=== PATIENT | male | born 1940 | race Caucasian/White ===

== ENCOUNTER 2022-04-15 10:33 | Outpatient (CLI) | payer MEDICARE, BC, SELFPAY | END 2022-04-15 10:34 | disposition home or self-care (01) | PROVIDERS: PCP Family Medicine; Visit Provider Nurse Practitioner Family | DX: L89.324 Pressure ulcer of left buttock, stage 4 (principal); R26.9 Unspecified abnormalities of gait and mobility; R77.0 Abnormality of albumin; D50.9 Iron deficiency anemia, unspecified | CPT/HCPCS: 11043; 99214 ==

== ENCOUNTER 2022-04-24 09:19 | Outpatient (CLI) | payer MEDICARE, BC, SELFPAY | END 2022-04-24 09:20 | disposition home or self-care (01) | PROVIDERS: PCP Family Medicine; Visit Provider Family Medicine | DX: L89.324 Pressure ulcer of left buttock, stage 4 (principal); D50.9 Iron deficiency anemia, unspecified; K68.12 Psoas muscle abscess; R26.9 Unspecified abnormalities of gait and mobility; R77.0 Abnormality of albumin | CPT/HCPCS: 11042; 72192; 97605 ==

== ENCOUNTER 2022-05-01 13:36 | Outpatient (CLI) | payer MEDICARE, BC, SELFPAY | END 2022-05-01 13:37 | disposition home or self-care (01) | LOC: WOUND 13:36 | PROVIDERS: PCP Family Medicine; Visit Provider Nurse Practitioner Family | DX: L89.324 Pressure ulcer of left buttock, stage 4 (principal); R26.9 Unspecified abnormalities of gait and mobility | CPT/HCPCS: 11042; 97605 ==

== ENCOUNTER 2022-05-08 13:14 | Outpatient (CLI) | payer MEDICARE, BC, SELFPAY | END 2022-05-08 13:15 | disposition home or self-care (01) | LOC: WOUND 13:15 | PROVIDERS: PCP Family Medicine; Visit Provider Nurse Practitioner Family | DX: L89.324 Pressure ulcer of left buttock, stage 4 (principal); D50.9 Iron deficiency anemia, unspecified | CPT/HCPCS: 15271; 97605; Q4151 ==

== ENCOUNTER 2022-05-15 13:05 | Outpatient (CLI) | payer MEDICARE, BC, SELFPAY | END 2022-05-15 13:06 | disposition home or self-care (01) | LOC: WOUND 13:05 | PROVIDERS: PCP Family Medicine; Visit Provider Nurse Practitioner Family | DX: L89.324 Pressure ulcer of left buttock, stage 4 (principal); R26.9 Unspecified abnormalities of gait and mobility | CPT/HCPCS: 11042; 97605 ==

== ENCOUNTER 2022-05-22 13:32 | Outpatient (CLI) | payer MEDICARE, BC, SELFPAY ==
--- OUTSIDE RECORDS SUMMARY | 2022-05-28 05:01 | XMS_ITS | Encounter Summary ---
:1940 Author Organization [facility] Address [address] [place] [address] Care Team Providers Name Role Phone Unavailable Primary Care Provider Unavailable Encounter Details Date Type Department Care Team Description 05/21/2022 Orders Only [facility] O f Denilson Quinones MD [phone] [place] [address] [place], [place] [phone] (Wo rk) Social History Tobacco Use Types Packs/Day Years Used Date Smoking Tobacco: Never Assessed Sex Assigned at Date Recorded Not on file documented as of this encounter Plan of Treatment Not on filedocumented as of this encounter Procedures Procedure Name Priority Date/Time Associated Diagnosis Comme nts GFR (HC) Routine 05/21/2022 Results for thi s procedure are in the resu lts section. HD KINETICS Routine 05/21/2022 Results for thi s procedure are in the resu lts section. POST CHEMISTRY Routine 05/21/2022 Results for t his procedure are in the resu lts section. IMMUNO CHEMISTRY Routine 05/21/2022 Results for this procedure are in the resu lts section. HEMATOLOGY Routine 05/21/2022 Results for thi s procedure are in the resu lts section. CHEMISTRY Routine 05/21/2022 Results for thi s procedure are in the resu lts section. documented in this encounter Results HD KINETICS (05/21/2022) P athologist Signature % Urea 76 65 - 80 % APS SPECTRA Reduction [facility] Specimen (Source) Anatomical Collection Method Collection Time Re ceived Time Location / / Volume Laterality 05/21/2022 05/22/2022 5:02 AM CDT Narrative APS SPECTRA [facility] - 05/27/2022 Unless otherwise specified, test(s) performed at: [facility], [address] [place] [address] TOOL CLERK: Raheem Malik M.D., Ph.D For any questions, please call customer service at FREQUENCY:MONTHLY Resulting Agency Comment Specimen source: Plasma Denilson Holly MD LAB BLOOD ORDERABLES Performing Organization Address City/State/ZIP Code Phon e Number APS SPECTRA [facility] (ABNORMAL) Spectrae Chemistry (05/21/2022) P athologist Signature BUN 54 (H) 6 - 19 APS SPECTRA mg/dL [facility] Creatinine 2.57 (H) 0.60 - 1.30 APS SPECTRA mg/dL [facility] Comment: Custom Exception BUN/Creatinine Ratio 21.0 (H) 10.0 - 20.0 APS SPE CTRA [facility] Sodium 142 136 - 145 mEq/L APS SPECT[facility] [place] [facility] Potassium 4.4 3.5 - 5.1 mEq/L [facility] [place] [facility] Chloride 105 96 - 108 mEq/L APS [facility] [place] Bicarbonate (CO2) 29 20 - 31 mEq/L APS SPEC TRA [facility] Comment: Please note change in reference range. Calcium 9.1 8.7 - 10.4 mg/dL APS SPECTRA K [facility] Comment: Please note change in reference range. Corrected Calcium 9.3 8.7 - 10.4 mg/dL APS S PECTRA [facility] Comment: Corrected Calcium is not equivalent to m easured Ionized Calcium. Phosphorus 3.7 2.6 - 4.5 mg/dL APS SPECTRA K [facility] Calcium Phosphorus Product 34 0 - 54 APS S[facility]RA [facility] Calcium Phosporus Product, Cor 34 0 - 54 APS SPECTRA [facility] Total Protein 6.6 6.0 - 8.5 g/dL APS SPECTRA [facility] Albumin 3.7 3.5 - 5.2 g/dL [facility] [place] Globulin, Total 2.9 2.0 - 4.0 g/dL APS SPECT RA [facility] A/G Ratio 1.3 1.0 - 2.0 APS SPECTRA [facility] Magnesium 1.6 1.6 - 2.6 mg/dL APS S[facility] [place] [facility] Iron 82 45 - 160 mcg/dL [facility] [place] [facility] UIBC 155 155 - 355 mcg/dL APS SPECTRA [facility] TIBC 237 185 - 515 mcg/dL APS SPECTRA [facility] Iron Saturation (TSat) 35 20 - 55 % APS SPE CTRA [facility] Specimen (Source) Anatomical Collection Method Collection Time Re ceived Time Location / / Volume Laterality 05/21/2022 05/23/2022 7:07 AM CDT Resulting Agency Comment Specimen source: Serum Denilson Holly MD LAB BLOOD ORDERABLES Performing Organization Address City/State/ZIP Code Phon e Number APS SPECTRA [facility] GFR (05/21/2022) P athologist Signature eGFR CKD-EPI CR 24 mL/min APS SPECTRA 2020 [facility] Comment: [facility] has implemented the recommended eGFR calculation that does not have a coefficient for rac e. This conforms to the NKF-ASN Task Force Recommendations (2020 Chronic Kidney Disease Epidemiology Collaboration (CKD-EPI) creatinine equat ion refit without the race variable). A normal eGFR is >90 mL/min. The new calculation is not applicable to pediatric patients. In gen eral, eGFR calculations may not be accurate in DEJA or other non-steady s card clinical presentations including, but not limited to, ongoing d ialysis. Extremes in body size, severe malnutrition or obesity, skeletal muscle disease, paraplegia or quadriplegia, vegetarian diet and rapidl y changing kidney function may alter the result. Specimen (Source) Anatomical Collection Method Collection Time Re ceived Time Location / / Volume Laterality 05/21/2022 05/23/2022 7:07 AM CDT Narrative APS SPECTRA [facility] - 05/27/2022 Unless otherwise specified, test(s) performed at: [facility], [address] [place] [address], [place] [address] TOOL CLERK: Raheem Malik M.D., Ph.D For any questions, please call customer service at FREQUENCY:MONTHLY Resulting Agency Comment Specimen source: Serum Denilson Holly MD LAB [id number] NSOLICITED RESULTS Performing Organization Address City/[facility]/ZIP Code Phon e Number APS SPECTRA [facility] IMMUNO CHEMISTRY (05/21/2022) P athologist Signature Hep B Surface Negative Negative APS SPECTRA Ag [facility] Hepatitis B 65 mIU/mL APS SPECTRA Surface Ab [facility] Comment: The anti-HBs (Hepatitis B surface antibo dy) is greater than or equal to 10 mIU/mL and implies immunity. The angela ent has either had an antibody response to HBV vaccination, received a transfusion, or has recovered from HBV infection. For post-vaccination antibody testing guidelines for the general public, refer to MMWR [facility] 2004/Vol.54 (No. 16); 11-10, and for healthcare workers, refer to MMWR October 07, 2013/Vol.62 (No. 10); -18. Reference Range: <10 mIU/mL ? Non-Immune >=10 mIU/mL ?Immune The magnitude of the measured result abo ve 10 mIU/mL is not indicative of the total amount of antibody present. Specimen (Source) Anatomical Collection Method Collection Time Re ceived Time Location / / Volume Laterality 05/21/2022 05/22/2022 5:12 AM CDT Narrative APS SPECTRA [facility] - 05/22/2022 Unless otherwise specified, test(s) performed at: [facility], [facility] [place] [address] TOOL CLERK: Raheem Malik M.D., Ph.D For any questions, please call customer service at FREQUENCY:MONTHLY Resulting Agency Comment Specimen source: Plasma Denilson Holly MD LAB BLOOD ORDERABLES Performing Organization Address City/State/ZIP Code Phon e Number APS SPECTRA [facility] POST CHEMISTRY (05/21/2022) P athologist Signature BUN Post 13 6 - 19 APS SPECTRA Dialysis mg/dL [facility] Specimen (Source) Anatomical Collection Method Collection Time Re ceived Time Location / / Volume Laterality 05/21/2022 05/22/2022 5:02 AM CDT Narrative APS SPECTRA [facility] - 05/22/2022 Unless otherwise specified, test(s) performed at: [facility], [address] [place] [address] TOOL CLERK: Raehem Malik M.D., Ph.D For any questions, please call customer service at FREQUENCY:MONTHLY Resulting Agency Comment Specimen source: Plasma Denilson Holly MD LAB BLOOD ORDERABLES Performing Organization Address City/State/ZIP Code Phon e Number APS SPECTRA [facility] (ABNORMAL) HEMATOLOGY (05/21/2022) [facility] Method Time Signature WBC 7.80 4.80 - APS SPECTRA 10.80 [facility] 1000/mcL RBC 3.53 (L) 4.70 - APS SPECTRA 6.10 [facility] mill/mcL Hemoglobin 10.4 (L) 14.0 - APS SPECTRA 18.0 g/dL [facility] Hemoglobin x 3 31.2 (L) 42.0 - APS SPECTRA 54.0 % [facility] Hematocrit 33.1 (L) 42.0 - APS SPECTRA 52.0 % [facility] MCV 94 80 - 100 APS SPECTRA fl [facility] MCH 29.5 27.0 - APS SPECTRA 31.0 pg [facility] MCHC 31.5 30.0 - APS SPECTRA 36.0 g/dL [facility] RDW 15.7 (H) 11.5 - APS SPECTRA 14.5 % [facility] Neutrophils 71.0 40.0 - APS SPECTRA 75.0 % [facility] Lymphocytes 14.0 (L) 19.0 - APS SPECTRA Relative 48.0 % [facility] Monocytes 9.7 3.0 - 10.0 APS SPECTRA % [facility] Eosinophils 2.6 0.0 - 7.0 APS SPECTRA Relative % [facility] Basophils 0.4 0.0 - 1.5 APS SPECTRA Relative % [facility] YARIEL 2.3 0.0 - 4.0 APS SPECTRA % [facility] Platelets 244 130 - 400 APS SPECTRA 1000/mcL [facility] Specimen (Source) Anatomical Collection Method Collection Time Re ceived Time Location / / Volume Laterality 05/21/2022 05/22/2022 4:08 AM CDT Narrative APS SPECTRA [facility] - 05/22/2022 Unless otherwise specified, test(s) performed at: [facility], [address] [place] [address] [place] [address] TOOL CLERK: Raheem Malik M.D., Ph.D For any questions, please call customer service at FREQUENCY:MONTHLY Resulting Agency Comment Specimen source: Blood Denilson Holly MD LAB BLOOD ORDERABLES Performing Organization Address City/State/ZIP Code Phon e Number APS SPECTRA [facility] documented in this encounter Visit Diagnoses Not on filedocumented in this encounter
--- OUTSIDE RECORDS SUMMARY | 2022-05-28 05:01 | XMS_ITS | Encounter Summary ---
:1940 Author Organization [facility] Address [address] [place] [address] Care Team Providers Name Role Phone Unavailable Primary Care Provider Unavailable Encounter Details Date Type Department Care Team Description 05/19/2022 Orders Only [facility] O f Denilson Quinones MD [phone] [place] [address] [place], [place] [phone] (Wo rk) Social History Tobacco Use Types Packs/Day Years Used Date Smoking Tobacco: Never Assessed Sex Assigned at Date Recorded Not on file documented as of this encounter Plan of Treatment Not on filedocumented as of this encounter Procedures Procedure Name Priority Date/Time Associated Diagnosis Comme nts GFR (HC) Routine 05/19/2022 Results for thi s procedure are i n the results section . PATIENT INFORMATION Routine 05/19/2022 Results for this procedure are i n the results section . PATIENT INFORMATION Routine 05/19/2022 Results for this procedure are i n the results section . CHEMISTRY Routine 05/19/2022 Results for thi s procedure are i n the results section . documented in this encounter Results (ABNORMAL) Spectrae Chemistry (05/19/2022) P athologist Signature BUN 54 (H) 6 - 19 APS SPECTRA mg/dL [facility] Creatinine 2.57 (H) 0.60 - 1.30 APS SPECTRA mg/dL [facility] Comment: Custom Exception BUN/Creatinine Ratio 21.0 (H) 10.0 - 20.0 APS SPE CTRA [facility] Sodium 138 136 - 145 mEq/L [facility] [place] [facility] Potassium 4.2 3.5 - 5.1 mEq/L [facility] [place] [facility] Chloride 102 96 - 108 mEq/L [facility] [place] Bicarbonate (CO2) 26 20 - 31 mEq/L APS SPEC TRA [facility] Comment: Please note change in reference range. Calcium 8.6 (L) 8.7 - 10.4 mg/dL APS SPECTRA [facility] Comment: Please note change in reference range. Glucose 85 70 - 100 mg/dL APS SPECTRA [facility] [place] Specimen (Source) Anatomical Collection Method Collection Time Re ceived Time Location / / Volume Laterality 05/19/2022 05/20/2022 3:17 AM CDT Resulting Agency Comment Specimen source: Serum Denilson Holly MD LAB BLOOD ORDERABLES Performing Organization Address City/State/ZIP Code Phon e Number APS SPECTRA [facility] PATIENT INFORMATION (05/19/2022) athologist Signature Patient BSA 1.73 sq. M. APS SPECTRA [facility] Comment: Normalized values are calculated using t he patient's actual BSA and normalized to the average BSA of 1.73m2. Specimen (Source) Anatomical Collection Method Collection Time Re ceived Time Location / / Volume Laterality 05/19/2022 05/20/2022 3:17 AM CDT Resulting Agency Comment Specimen source: PD Fluid Denilson Holly MD LAB BLOOD ORDERABLES Performing Organization Address City/State/ZIP Code Phon e Number APS SPECTRA [facility] GFR (05/19/2022) athologist Signature eGFR CKD-EPI CR 24 mL/min APS SPECTRA 2020 [facility] Comment: [facility] has implemented the recommended eGFR calculation that [...] ceived Time Location / / Volume Laterality 05/19/2022 05/20/2022 3:17 AM CDT Narrative APS SPECTRA [facility] - 05/20/2022 Unless otherwise specified, test(s) performed at: [facility], [address] [facility], [place] [address] DOUGHNUT FRYER: Raheem Malik M.D., Ph.D For any questions, please call customer service at FREQUENCY:OTHER Resulting Agency Comment Specimen source: Serum Denilson Holly MD LAB [id number] NSOLICITED RESULTS Performing Organization Address City/[facility] Phon e Number APS SPECTRA [facility] PATIENT INFORMATION (05/19/2022) P athologist Signature Patient Weight 69.3 APS SPECTRA [facility] Patient Height 161.0 APS SPECTRA [facility] Amputee Status NO [facility]PS S[facility]RA [facility] Amputee Parts NONE [facility]RA [facility] Urine Volume 500 APS SPECTRA [facility] Collection 24.0 APS SPECTRA Interval, Ur [facility] Specimen (Source) Anatomical Location Collection Method / Collectio n Time Received Time / Laterality Volume 05/19/2022 05/19/2022 Narrative APS SPECTRA [facility] - 05/20/2022 Unless otherwise specified, test(s) performed at: [facility], [address] [facility] [place] [address] DOUGHNUT FRYER: Raheem Malik M.D., Ph.D For any questions, please call customer service at FREQUENCY:OTHER Resulting Agency Comment Specimen source: PD Fluid Denilson Holly MD LAB BLOOD ORDERABLES Performing Organization Address City/[facility] Phon e Number APS SPECTRA [facility] documented in this encounter Visit Diagnoses Not on filedocumented in this encounter
--- OUTSIDE RECORDS SUMMARY | 2022-05-28 05:01 | XMS_ITS | Encounter Summary ---
:1940 Author Organization [facility] Address [address] [place] [address] Care Team Providers Name Role Phone Unavailable Primary Care Provider Unavailable Encounter Details Date Type Department Care Team Description 05/14/2022 Orders Only [facility] O f Denilson Quinones MD [phone] [place] [address] [place], [place] [phone] (Wo rk) Social History Tobacco Use Types Packs/Day Years Used Date Smoking Tobacco: Never Assessed Sex Assigned at Date Recorded Not on file documented as of this encounter Plan of Treatment Not on filedocumented as of this encounter Procedures Procedure Name Priority Date/Time Associated Diagnosis Comme nts GFR (HC) Routine 05/14/2022 Results for thi s procedure are in the resu lts section. HEMATOLOGY Routine 05/14/2022 Results for thi s procedure are in the resu lts section. CHEMISTRY Routine 05/14/2022 Results for thi s procedure are in the resu lts section. documented in this encounter Results (ABNORMAL) HEMATOLOGY (05/14/2022) Analysis Performed At Patho logist Time Signature Hemoglobin 10.2 (L) 14.0 - APS SPECTRA 18.0 g/dL [facility] Hemoglobin x 3 30.6 (L) 42.0 - APS SPECTRA 54.0 % [facility] Specimen (Source) Anatomical Collection Method Collection Time Re ceived Time Location / / Volume Laterality 05/14/2022 05/15/2022 6:56 AM CDT Narrative APS SPECTRA [facility] - 05/15/2022 Unless otherwise specified, test(s) performed at: [email or web address], [address] [place] [address] [address] [place] [address] HEALTH AND SAFETY INSPECTOR: Raheem Malik M.D., Ph.D For any questions, please call customer service at FREQUENCY:OTHER Resulting Agency Comment Specimen source: Blood Denilson Holly MD LAB BLOOD ORDERABLES Performing Organization Address City/State/ZIP Code Phon e Number APS SPECTRA [facility] (ABNORMAL) Spectrae Chemistry (05/14/2022) P athologist Signature BUN 53 (H) 6 - 19 APS SPECTRA mg/dL [facility] Creatinine 2.59 (H) 0.60 - 1.30 APS SPECTRA mg/dL [facility] Comment: Custom Exception BUN/Creatinine Ratio 20.5 (H) 10.0 - 20.0 APS SPE CTRA [facility] Sodium 138 136 - 145 mEq/L APS SPECTRA [place] [facility] Potassium 4.0 3.5 - 5.1 mEq/L [facility]PS [facility]RA [place] [facility] Chloride 101 96 - 108 mEq/L APS S[facility]RA [facility] [place] Bicarbonate (CO2) 28 20 - 31 mEq/L APS SPEC TRA [facility] Comment: Please note change in reference range. Specimen (Source) Anatomical Collection Method Collection Time Re ceived Time Location / / Volume Laterality 05/14/2022 05/15/2022 6:52 AM CDT Resulting Agency Comment Specimen source: Serum Denilson Holly MD LAB BLOOD ORDERABLES Performing Organization Address City/[facility]/ZIP Code Phon e Number APS SPECTRA [facility] GFR (05/14/2022) P athologist Signature eGFR CKD-EPI CR 24 mL/min APS SPECTRA 2020 [facility] Comment: [email or web address] has implemented the recommended eGFR calculation that [...] ceived Time Location / / Volume Laterality 05/14/2022 05/15/2022 6:52 AM CDT Narrative APS SPECTRA [facility] - 05/15/2022 Unless otherwise specified, test(s) performed at: [email or web address], [address] [place] [address] [place] [address] HEALTH AND SAFETY INSPECTOR: Raheem Malik M.D., Ph.D For any questions, please call customer service at FREQUENCY:OTHER Resulting Agency Comment Specimen source: Serum Denilson Holly MD LAB [id number] NSOLICITED RESULTS Performing Organization Address City/State/ZIP Code Phon e Number APS SPECTRA [facility] documented in this encounter Visit Diagnoses Not on filedocumented in this encounter
--- OUTSIDE RECORDS SUMMARY | 2022-05-28 05:01 | XMS_ITS ---
:1940 Author Organization [facility], [place] DOCUMENT DISCLAIMER The information in the [facility] Continuity of Care Document represents a summary of certain health and medical information. It may not contain the complete medical history for the patient and should be independently verified. The represented time in the document is Eastern Time. 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 Active April 14, 2022 Acute kidney failure, unspecified N17.9 Active April 14, 2022 ALLERGIES AND ADVERSE REACTIONS Substance Reaction Severity Status PENICILLINS Skin Rash Moderate Active procaine Unknown Active SOCIAL HISTORY Tobacco Use Status Tobacco Type Unknown if ever consumed tobacco - Caregiver Characteristics Need Level ADL Type 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 MEDICATIONS Prescribed Medications for Dialysis Treatments Medication Instructions Dosage Route Start Date End Date Statu s Heparin Every Treatment 1600 Arterial Red April 16April 15, Active Sodium units Port 2021 2022 (Porcine) 1,000 Units/mL Catheter Lock Arterial Heparin Every Treatment 1600 Venous Blue April 16April 15, Active Sodium units Port 2021 2022 (Porcine) 1,000 Units/mL Catheter Lock Venous Iron Sucrose 1X Week 50 mg Intravenous - May Active (Venofer) push 2021 Iron Sucrose Every Treatment 100 mg Intravenous - April 30May us Active (Venofer) push 2021 Home Medications Medication Instructions Dosage Route Start Date End Date Statu s apixaban 5 mg Take by mouth 1 tablet ORAL April 28, Active twice a day 2021 ascorbic acid ORAL April 28, Acti ve (vitamin C) 500 mg 2021 Cipro 500 mg ORAL April 28, Activ e 2021 hydrocodone-aceta Take by mouth 1 tablet ORAL April 28, Active minophen 5-325 mg twice a day as 2021 needed for pain lansoprazole 30 Take by mouth 1 tablet ORAL April 28, Active mg once a day 2021 melatonin 3 mg ORAL April 28, Act shin 2021 metoprolol Take by mouth 1 tablet ORAL April 28, Ac tive tartrate 50 mg twice a day 2021 midodrine 10 mg Take by mouth 1 tablet ORAL April 28, Active three times a day 2021 as needed ramelteon 8 mg ORAL April 28, Act shin 2021 senna 8.6 mg ORAL April 28, Activ e 2021 VITAL SIGNS Post-Treatment Vital Signs Vital Sign Value Date / Time Blood Pressure-sitting 131/81 mmHg May 26, 2022 1 1:51 AM Heart Rate 76 beats per minute May 26, 2022 11:5 1 AM Respiratory Rate 16 breaths per minute May 26, 2022 11 :51 AM Temperature 97.8 deg. F May 26, 2022 11:5 1 AM Weight Vital Sign Value Date / Time Estimated Dry Weight 71.5 kg April 21, 2022 11:59 PM Pre-Dialysis 72.60 kg May 26, 2022 11:5 1 AM Post-Dialysis 71.60 kg May 26, 2022 11:5 1 AM Other Other Value Date / Time Height 161 cm May 26, 2022 12:0 0 AM HEALTH CONCERNS Tuberculosis Testing TST Date Administered TST Date Read TST Result 04/23/2022 04/25/2022 Negative (<5) mm LAB RESULTS Hematology Result Type Result Value Relevant Reference Interpretation Date Range HGB 10.3 g/dL Males: 14.0 - 18.0 Low May 02, 2022 g/dL Females: 12.0 - 16.0 g/dL Hemoglobin x 3 30.9 % Male: 14.0 - 18.0 Low May 02, 2022 g/dL; Female: 12.0-16.0 g/dL Hemoglobin x 3 31.5 % Male: 14.0 - 18.0 Low May 07, 2022 g/dL; Female: 12.0-16.0 g/dL HGB 10.5 g/dL Males: 14.0 - 18.0 Low May 07, 2022 g/dL Females: 12.0 - 16.0 g/dL HGB 10.2 g/dL Males: 14.0 - 18.0 Low May 14, 2022 g/dL Females: 12.0 - 16.0 g/dL Hemoglobin x 3 30.6 % Male: 14.0 - 18.0 Low May 14, 2022 g/dL; Female: 12.0-16.0 g/dL Platelets 244 1000/mcL 336-684 9786/mcL - May 21, 2022 YARIEL 2.3 % 0.0-4.0% - May 21, 2022 Basophils 0.4 % 0.0-1.5% - May 21, 2022 Eosinophil 2.6 % 0.0-7.0% - May 21, 2022 TIBC 237 mcg/dL 185-515 mcg/dL - May 21 UIBC (Calc) 155 mcg/dL 155-355 mcg/dL - May 21 Iron 82 mcg/dL Females: 30-160 - May 21 022 mcg/dL Males: 45-160 mcg/dL RBC 3.53 mill/mcL Males: 4.70 - 6.10 Low May mill/mcL Females: 4.20 - 5.40 mill/mcL WBC (No Diff) 7.80 1000/mcL 4.8-10.8 thous/mcL - May 21, 2022 Transferrin Sat. 35 % 20-55% - May 21, 2022 (Calc) Monocytes 9.7 % 3.0-10.0% - May 21, 2022 Lymphocytes 14.0 % 19.0-48.0% Low May 21, 2022 Neutrophils 71.0 % 40.0-75.0% - May 21, 2022 RDW 15.7 % No Reference range High May provided MCHC 31.5 g/dL 30 - 36 g/dL - May 21, 2022 MCH 29.5 pg 27 - 31 pg/cell - May 21 HCT 33.1 % Males: 42 - 52% Low May 21 Females: 37 - 47% Hemoglobin x 3 31.2 % Male: 14.0 - 18.0 Low May g/dL; Female: 12.0-16.0 g/dL HGB 10.4 g/dL Males: 14.0 - 18.0 Low May g/dL Females: 12.0 - 16.0 g/dL Metabolic/Renal Result Type Result Value Relevant Reference Interpretation Date Range Creatinine, Serum 2.48 mg/dL 0.6-1.3 mg/dL High May 02, 2022 BUN 76 mg/dL 6-19 mg/dl High May 02, 2022 Sodium 143 mEq/L 136-145 mEq/L - May 02, 2022 BUN/Creat Ratio 30.6 08-07 High May 02 Chloride 107 mEq/L 96-108 mEq/L - May 02, 2022 Potassium 4.2 mEq/L 3.5-5.1 mEq/L - May 02, 2022 Bicarbonate 26 mEq/L 22-29 mEq/L - May 02, 2022 Creatinine, Serum 2.18 mg/dL 0.6-1.3 mg/dL High May 07, 2022 BUN/Creat Ratio 20.6 08-07 High May 07 BUN 45 mg/dL 6-19 mg/dl High May 07, 2022 Chloride 105 mEq/L 96-108 mEq/L - May 07, 2022 Bicarbonate 28 mEq/L 22-29 mEq/L - May 07, 2022 Sodium 143 mEq/L 136-145 mEq/L - May 07, 2022 Potassium 4.0 mEq/L 3.5-5.1 mEq/L - May 07, 2022 Chloride 101 mEq/L 96-108 mEq/L - May 14, 2022 Potassium 4.0 mEq/L 3.5-5.1 mEq/L - May 14, 2022 Bicarbonate 28 mEq/L 22-29 mEq/L - May 14, 2022 Creatinine, Serum 2.59 mg/dL 0.6-1.3 mg/dL High May 14, 2022 BUN 53 mg/dL 6-19 mg/dl High May 14, 2022 Sodium 138 mEq/L 136-145 mEq/L - May 14, 2022 BUN/Creat Ratio 20.5 08-07 High May 14 2 Bicarbonate 26 mEq/L 22-29 mEq/L - May 19, 2022 BUN/Creat Ratio 21.0 - High May 19 Sodium 138 mEq/L 136-145 mEq/L - May 19 Potassium 4.2 mEq/L 3.5-5.1 mEq/L - May 19 Chloride 102 mEq/L 96-108 mEq/L - May 19, 2022 Creatinine, Serum 2.57 mg/dL 0.6-1.3 mg/dL High May BUN 54 mg/dL 6-19 mg/dl High May 19, 2022 BUN 54 mg/dL 6-19 mg/dl High May 21, 2022 Bicarbonate 29 mEq/L 22-29 mEq/L - May 21, 2022 Chloride 105 mEq/L 96-108 mEq/L - May 21, 2022 BUN, Post 13 mg/dL 6-19 mg/dL - May 21, 2022 Potassium 4.4 mEq/L 3.5-5.1 mEq/L - May 21 Sodium 142 mEq/L 136-145 mEq/L - May 21 BUN/Creat Ratio 21.0 - High May 21 Creatinine, Serum 2.57 mg/dL 0.6-1.3 mg/dL High May URR, Calc 76 % 65 - 80% - May 21, 2022 Urea Nitrogen, Urine, 348 mg/dL 12-20 g/24 hrs - 2021 Timed Creatinine Clearance, 4.5 mL/min Creatinine Low May 23, 2022 Urine Clearance, Normalized Male 94.0-122.0 mL/min Female 77.0-94.0 mL/min Creatinine, Serum 2.41 mg/dL 0.6-1.3 mg/dL High May BUN/Creat Ratio 24.1 - High May 23 022 BUN 58 mg/dL 6-19 mg/dl High May 23, 2022 HD Adequacy Result Type Result Value Relevant Reference Interpretation Date Range spKt/V ([place] 1.66 No Reference range Normal 2021 II) provided eKt/V ([place]) 1.39 No Reference range Normal May provided Bone/Mineral Result Type Result Value Relevant Reference Interpretation Date Range Calcium, Total 9.1 mg/dL 8.4-10.2 mg/dL - May 02 Calcium, Total 8.6 mg/dL 8.4-10.2 mg/dL Low May 19, 2022 Phosphorus 3.7 mg/dL 2.6-4.5 mg/dL - May 21 2 Calcium, Total 9.1 mg/dL 8.4-10.2 mg/dL - May 21, 2022 Ca x P Product 34 < 55 - May 21 22 Magnesium 1.6 mg/dL 1.6-2.6 mg/dL - May 21 2 Corrected Ca x P 34 < 55 - May 21, 2022 Product Liver/Nutrition Result Type Result Value Relevant Reference Interpretation Date Range Glucose 95 mg/dL 70-100 mg/dL - May 02, 2022 (fasting) Glucose 85 mg/dL 70-100 mg/dL - May 19, 2022 (fasting) Total Protein 6.6 g/dL 6.0-8.5 g/dL - May 21 2 Albumin (BCG) 3.7 g/dL 3.5-5.2 g/dL - May 21 2 A/G Ratio 1.3 1.0-2.0 - May 21, 2022 Globulin (Calc) 2.9 g/dL 1.0 - 2.0 - May 21 022 Peritoneal Dialysis Testing Result Type Result Value Relevant Reference Interpretation Date Range Total Creatinine, 0.2 g/24 hr No Reference range Low 2021 Urine provided Total Urea 0.7 g/24 hr No Reference range Low May Nitrogen, Urine provided Creatinine, Urine 78.5 mg/dL No Reference range - 2021 provided Urea Clearance, 0.8 mL/min No Reference range Low May 23, 2022 Urine provided Infectious Diseases Result Type Result Value Relevant Reference Interpretation Date Range Hep B core Ab Negative Negative - April 23, 2022 Total (anti-HBc) Hep B Surface Ag Negative Negative - May 21, 2022 (HBsAg) Hep B Surface Ab 65 mIU/mL < 10 mIU/mL, Non- - May 21, 2022 (anti-HBs) Immune DIALYSIS PRESCRIPTION Conventional Hemodialysis Data Element Value Order Date/Time April 21, 2022 Frequency 3X Week Treatment Days MonWedFri Dialyzer [id number] Optiflux Treatment Time (Total Minutes) 180 min Blood Flow Rate (mL/min) 350 mL/min Dialysate Flow Rate Manual 600 Estimated Dry Weight 71.5 kg Dialysate Concentrate 2.0 K, 2.5 Ca, 1.0 Mg, 100 D extrose (N2251) Sodium (mEq/L) 138 meq/L Bicarb Machine Setting (mEq/L) 36 meq/L Dialysis Access Hemodialysis-CV Catheter-[place]od[place] neled, Chest, Right Jugular IMMUNIZATIONS Vaccine Date Dose Route Status HEPLISAV-B April 25, 2022 20.0 mcg Intramuscular Completed TRANSPLANT WAITLIST STATUS No Information on Transplant Waitlist Status DIALYSIS TREATMENTS Conventional Hemodialysis Date Pre-Treatment Post-Treatment Duration BFR Dialysate Dialyzer Dialysis Meds Vitals Vitals (hr) (mL/min) Access Admin May Weight 73.50 Weight 70.90 03:00:00 360 2.0 K, 180nre Hemodial ysis-CV Catheter-Tunneled, Chest, Right Jugular Heparin Sodium (Porcine) 1,000 Units/mL Catheter Lock Arterial; 1600units,Arterial Red Port 03, kg kg 2.5 Ca, Optiflux Heparin S odium (Porcine) 1,000 Units/mL Catheter Lock Venous; 1600units,Venous Blue Port 2021 1.0 Mg, Iron Sucrose (Venofer); 100mg,Intravenous - push 100 Dextrose (N2251) Blood Pressure-sitting 155/77 mmHg Blood Pressure-sitting 14 3/66 mmHg Heart Rate 68 beats per minute Heart Rate 78 beats per minute Respiratory Rate 16 breaths per Respiratory Rate 16 breaths per minute minute Temperature 96.7 deg. F Temperature 96.0 deg. F May Weight 71.20 Weight 71.40 03:01:00 360 2.0 K, 180nre Hemodial ysis-CV Catheter-Tunneled, Chest, Right Jugular Heparin Sodium (Porcine) 1,000 Units/mL Catheter Lock Arterial; 1600units,Arterial Red Port 05, kg kg 2.5 Ca, Optiflux Heparin S odium (Porcine) 1,000 Units/mL Catheter Lock Venous; 1600units,Venous Blue Port 2021 1.0 Mg, 100 Dextrose (N2251) Blood Pressure-sitting 129/69 mmHg Blood Pressure-sitting 15 5/85 mmHg Heart Rate 66 beats per minute Heart Rate 75 beats per minute Respiratory Rate 16 breaths per Respiratory Rate 16 breaths per minute minute Temperature 97.8 deg. F Temperature 97.6 deg. F May Weight 72.60 Weight 71.60 03:01:00 360 2.0 K, 180nre Hemodial ysis-CV Catheter-Tunneled, Chest, Right Jugular Heparin Sodium (Porcine) 1,000 Units/mL Catheter Lock Arterial; 1600units,Arterial Red Port 08, kg kg 2.5 Ca, Optiflux Heparin S odium (Porcine) 1,000 Units/mL Catheter Lock Venous; 1600units,Venous Blue Port 2021 1.0 Mg, Iron Sucrose (Venofer); 50mg,Intravenous - push 100 Dextrose (N2251) Blood Pressure-sitting 157/83 mmHg Blood Pressure-sitting 13 1/81 mmHg Heart Rate 65 beats per minute Heart Rate 76 beats per minute Respiratory Rate 16 breaths per Respiratory Rate 16 breaths per minute minute Temperature 98.0 deg. F Temperature 97.8 deg. F
--- OUTSIDE RECORDS SUMMARY | 2022-05-28 05:01 | XMS_ITS | Clinical Summary ---
:1940 Author Organization [facility] Facility Address [address] [place] [address] Care Team Providers Name Role Phone Unavailable Primary Care Provider Unavailable Encounters Date Type Specialty Care Team Description 05/23/2022 Orders Only NephDenilson Isidro MD 05/21/2022 Orders Only NephDenilson Isidro MD 05/19/2022 Orders Only NephDenilson Isidro MD 05/14/2022 Orders Only Denilson Leahy MD 05/14/2022 Treatment Denilson Holly MD 05/07/2022 Orders Only Denilson Leahy MD 05/02/2022 Orders Only Denilson Leahy MD 04/23/2022 Orders Only Denilson Leahy MD 04/16/2022 Orders Only Denilson Leahy MD 04/16/2022 Treatment Denilson Holly MD 04/16/2022 Office Communication NephDenilson Isidro MD from Last 3 Months Social History Tobacco Use Types Packs/Day Years Used Date Smoking Tobacco: Never Assessed Sex Assigned at Date Recorded Not on file Plan of Treatment Health Maintenance Due Date Last Done Comments Hepatitis B Vaccine (1 of 3 - Risk 1961 07/25/1991, 0 01/31/1991 Recombivax 3-dose series) Influenza Vaccine (#1) 2022 08/16/2021, 08/10/2020, 08/12/2018, Additional history exists Pneumococcal Vaccine: 65+ Years Completed 12/02/2016, 09/18, 05/01/2009 Procedures Procedure Name Priority Date/Time Associated Diagnosis Comme nts URINE CLEARANCE Routine 05/23/2022 Results for this procedure are i n the results section . PATIENT INFORMATION Routine 05/23/2022 Results for this procedure are i n the results section . CHEMISTRY Routine 05/23/2022 Results for thi s procedure are i n the results section . GFR (HC) Routine 05/23/2022 Results for thi s procedure are i n the results section . PATIENT INFORMATION Routine 05/23/2022 Results for this procedure are i n the results section . HD KINETICS Routine 05/21/2022 Results for thi s procedure are i n the results section . CHEMISTRY Routine 05/21/2022 Results for thi s procedure are i n the results section . GFR (HC) Routine 05/21/2022 Results for thi s procedure are i n the results section . IMMUNO CHEMISTRY Routine 05/21/2022 Results for this procedure are i n the results section . POST CHEMISTRY Routine 05/21/2022 Results for t his procedure are i n the results section . HEMATOLOGY Routine 05/21/2022 Results for thi s procedure are i n the results section . CHEMISTRY Routine 05/19/2022 Results for thi s procedure are i n the results section . PATIENT INFORMATION Routine 05/19/2022 Results for this procedure are i n the results section . GFR (HC) Routine 05/19/2022 Results for thi s procedure are i n the results section . PATIENT INFORMATION Routine 05/19/2022 Results for this procedure are i n the results section . HEMATOLOGY Routine 05/14/2022 Results for thi s procedure are i n the results section . CHEMISTRY Routine 05/14/2022 Results for thi s procedure are i n the results section . GFR (HC) Routine 05/14/2022 Results for thi s procedure are i n the results section . CHEMISTRY Routine 05/07/2022 Results for thi s procedure are i n the results section . GFR (HC) Routine 05/07/2022 Results for thi s procedure are i n the results section . HEMATOLOGY Routine 05/07/2022 Results for thi s procedure are i n the results section . HEMATOLOGY Routine 05/02/2022 Results for thi s procedure are i n the results section . CHEMISTRY Routine 05/02/2022 Results for thi s procedure are i n the results section . GFR (HC) Routine 05/02/2022 Results for thi s procedure are i n the results section . SPECTRA JALE[facility] LAB RESULTS Routine 04/23/2022 Resul ts for this procedure are i n the results section . TRACE ELEMENTS Routine 04/23/2022 Results for t his procedure are i n the results section . IMMUNO CHEMISTRY Routine 04/23/2022 Results for this procedure are i n the results section . CHEMISTRY Routine 04/23/2022 Results for thi s procedure are i n the results section . HEMATOLOGY Routine 04/23/2022 Results for thi s procedure are i n the results section . HD KINETICS Routine 04/23/2022 Results for thi s procedure are i n the results section . POST CHEMISTRY Routine 04/23/2022 Results for t his procedure are i n the results section . CHEMISTRY Routine 04/23/2022 Results for thi s procedure are i n the results section . SPECTRA JALEEL LAB RESULTS Routine 04/16/2022 Resul ts for this procedure are i n the results section . TRACE ELEMENTS Routine 04/16/2022 Results for t his procedure are i n the results section . IMMUNO CHEMISTRY Routine 04/16/2022 Results for this procedure are i n the results section . CHEMISTRY Routine 04/16/2022 Results for thi s procedure are i n the results section . HD KINETICS Routine 04/16/2022 Results for thi s procedure are i n the results section . POST CHEMISTRY Routine 04/16/2022 Results for t his procedure are i n the results section . CHEMISTRY Routine 04/16/2022 Results for thi s procedure are i n the results section . GFR (HC) Routine 04/16/2022 Results for thi s procedure are i n the results section . HEMATOLOGY Routine 04/16/2022 Results for thi s procedure are i n the results section . from Last 3 Months Results GFR (05/23/2022)Only the most recent of7 resultswithin the time period is included. P athologist Signature eGFR CKD-EPI CR 27 mL/min APS [employer] 2020 [facility] Comment: [facility] has implemented the recommended eGFR calculation that [...] ceived Time Location / / Volume Laterality 05/23/2022 05/26/2022 12:2 5 PM CDT Narrative APS SPECTRA [facility] - 05/26/2022 Unless otherwise specified, test(s) performed at: [facility], [address] [place] [address], [place] [address] RN SPINE: Raheem Malik M.D., Ph.D For any questions, please call customer service at FREQUENCY:OTHER Resulting Agency Comment Specimen source: Serum Denilson Holly MD LAB [id number] NSOLICITED RESULTS Performing Organization Address City/State/ZIP Code Phon e Number APS SPECTRA [facility] (ABNORMAL) URINE CLEARANCE (05/23/2022) P athologist Signature Urea Nitrogen, 348 mg/dL APS [facility]PECTRA Urine Timed [facility] Urea Nitrogen, 0.7 (L) 12.0 - APS SPECTRA Urine 24 Hr 20.0 g/24 [facility] hr Urea Clearance, 0.8 (L) 64.0 - APS SPECTRA Urine 99.0 [facility] mL/min Creatinine, 78.5 mg/dL APS SPECTRA Urine Timed [facility] Creatinine, 24H 0.2 (L) 0.7 - 1.8 APS SPECTRA Ur g/24 hr [facility] Creatinine 4.5 mL/min APS SPECTRA Clear, Urine [facility] Creat Clear, 4.5 (L) 94.0 - APS SPECTRA Urine Norm 122.0 [facility] mL/min Specimen (Source) Anatomical Collection Method Collection Time Re ceived Time Location / / Volume Laterality 05/23/2022 05/26/2022 12:1 3 PM CDT Narrative APS SPECTRA [facility] - 05/26/2022 Unless otherwise specified, test(s) performed at: [facility], [address] [place] [address], [place] [address] RN SPINE: Raheem Malik M.D., Ph.D For any questions, please call customer service at FREQUENCY:OTHER Resulting Agency Comment Specimen source: Urine Denilson Holly MD LAB URINE ORDERABLES Performing Organization Address City/State/ZIP Code Phon e Number APS SPECTRA [facility] PATIENT INFORMATION (05/23/2022)Only the most recent of4 resultswithin the time period is included. athologist [facility] Patient BSA 1.75 sq. M. APS SPECTRA [facility] Comment: Normalized values are calculated using t he patient's actual BSA and normalized to the average BSA of 1.73m2. Specimen (Source) Anatomical Collection Method Collection Time Re ceived Time Location / / Volume Laterality 05/23/2022 05/26/2022 12:2 5 PM CDT Narrative APS SPECTRA [facility] - 05/26/2022 Unless otherwise specified, test(s) performed at: [facility], [address] [place] [address], [place] [address] RN SPINE: Raheem Malik M.D., Ph.D For any questions, please call customer service at FREQUENCY:OTHER Resulting Agency Comment Specimen source: PD Fluid Denilson Holly MD LAB BLOOD ORDERABLES Performing Organization Address City/State/ZIP Code Phon e Number APS SPECTRA [facility] (ABNORMAL) Spectrae Chemistry (05/23/2022)Only the most recent of10 results within the time period is included. athologist [facility] BUN 58 (H) 6 - 19 APS SPECTRA mg/dL [facility] Creatinine 2.41 (H) 0.60 - 1.30 APS SPECTRA mg/dL [facility] Comment: Custom Exception BUN/Creatinine Ratio 24.1 (H) 10.0 - 20.0 APS SPE CTRA [facility] Specimen (Source) Anatomical Collection Method Collection Time Re ceived Time Location / / Volume Laterality 05/23/2022 05/26/2022 12:2 5 PM CDT Resulting Agency Comment Specimen source: Serum Denilson Holly MD LAB BLOOD ORDERABLES Performing Organization Address City/State/ZIP Code Phon e Number APS SPECTRA [facility] HD KINETICS (05/21/2022)Only the most recent of3 resultswithin the time period is included. athologist [facility] % Urea 76 65 - 80 % APS SPECTRA Reduction [facility] Specimen (Source) Anatomical Collection Method Collection Time Re ceived Time Location / / Volume Laterality 05/21/2022 05/22/2022 5:02 AM CDT Narrative APS SPECTRA [facility] - 05/27/2022 Unless otherwise specified, test(s) performed at: [facility], [address] [place] [address], [place] [address] RN SPINE: Raheem Malik M.D., Ph.D For any questions, please call customer service at FREQUENCY:MONTHLY Resulting Agency Comment Specimen source: Plasma Denilson Holly MD LAB BLOOD ORDERABLES Performing Organization Address City/[facility] Phon e Number APS SPECTRA [facility] POST CHEMISTRY (05/21/2022)Only the most recent of3 resultswithin the time period is included. athologist Signature BUN Post 13 6 - 19 APS SPECTRA Dialysis mg/dL [facility] Specimen (Source) Anatomical Collection Method Collection Time Re ceived Time Location / / Volume Laterality 05/21/2022 05/22/2022 5:02 AM CDT Narrative APS SPECTRA [facility] - 05/22/2022 Unless otherwise specified, test(s) performed at: [facility], [address] [place] [address], [place] [address] RN SPINE: Raheem Malik M.D., Ph.D For any questions, please call customer service at FREQUENCY:MONTHLY Resulting Agency Comment Specimen source: Plasma Denilson Holly MD LAB BLOOD ORDERABLES Performing Organization Address [facility] Phon e Number APS SPECTRA [facility] IMMUNO CHEMISTRY (05/21/2022)Only the most recent of3 resultswithin the time period is included. P athologist Signature Hep B Surface Negative [...] for the general public, refer to MMWR Decemb er 2004/Vol.54 (No. 16); 1-23, and for healthcare workers, refer to MMWR October 07, 2013/Vol.62 (No. 10); 1-18. Reference Range: <10 mIU/mL ? Non-Immune >=10 mIU/mL ?Immune The magnitude of the measured result abo ve 10 mIU/mL is not indicative of the total amount of antibody present. Specimen (Source) Anatomical Collection Method Collection Time Re ceived Time Location / / Volume Laterality 05/21/2022 05/22/2022 5:12 AM CDT Narrative APS SPECTRA [facility] - 05/22/2022 Unless otherwise specified, test(s) performed at: [facility], [address] [place] [address], [place] [address] RN SPINE: Raheem Malik M.D., Ph.D For any questions, please call customer service at FREQUENCY:MONTHLY Resulting Agency Comment Specimen source: Plasma Denilson Holly MD LAB BLOOD ORDERABLES Performing Organization Address City/State/ZIP Code Phon e Number APS SPECTRA [facility] (ABNORMAL) HEMATOLOGY (05/21/2022)Only the most recent of6 resultswithin the time period is included. [facility] gist Method Time Signature WBC 7.80 4.80 - [...] 05/22/2022 Unless otherwise specified, test(s) performed at: [facility], [address] [place] [address], [place] [address] RN SPINE: Raheem Malik M.D., Ph.D For any questions, please call customer service at FREQUENCY:MONTHLY Resulting Agency Comment Specimen source: Blood Denilson Holly MD LAB BLOOD ORDERABLES Performing Organization Address City/State/ZIP Code Phon e Number APS SPECTRA [facility] TRACE ELEMENTS (04/23/2022)Only the most recent of2 resultswithin the time period is included. athologist Signature Aluminum <5 0 - 10 APS SPECTRA mcg/L [facility] Comment: This test was developed and its performa nce characteristics determined by [facility]. It has not been cleared or approved by the FDA. The laboratory is regulated under CLIA a s qualified to perform high complexity testing. This test is used fo r clinical purposes. It should not be regarded as investigational or fo r research. Test performed at [facility], [address] [place] [address]. Telephone . [facility] [employer] or: Henok Correa MD. Specimen (Source) Anatomical Collection Method Collection Time Re ceived Time Location / / Volume Laterality 04/23/2022 04/25/2022 7:04 PM CDT Narrative APS SPECTRA [facility] - 04/27/2022 Unless otherwise specified, test(s) performed at: [facility], [address] [place] [address], [place] [address] RN SPINE: Raheem Malik M.D., Ph.D For any questions, please call customer service at FREQUENCY:MONTHLY Resulting Agency Comment Specimen source: Serum Denilson Holly MD LAB BLOOD ORDERABLES Performing Organization Address City/State/ZIP Code Phon e Number APS SPECTRA [facility] Spectra [facility] Lab Results (04/23/2022)Only the most recent of2 resultswithin the time period is included. P athologist Signature spKt/V Gotch 1.80 [facility] nPCR_HD 0.90 [facility] PCR 47.62 [facility] eKdrt/V 1.47 [facility] eNPCR 0.82 [facility] spKt/V 1.63 [facility] (Daugirdas II) eKt/V 1.37 [facility] ([place]) eKt/V Gotch 1.47 [facility] Specimen (Source) Anatomical Location Collection Method / Collectio n Time Received Time / Laterality Volume 04/23/2022 04/23/2022 [facility] Ordering Provider LAB BLOOD ORDERABLES Performing Organization Address City/State/ZIP Code Phon e Number J[facility] from Last 3 Months Insurance Payer Benefit Plan / Subscriber ID Effective Dates Phone Addre ss Type [place] [id number] 2016-Present [phone] [address] [id number] ([id number]) [place] [address]
--- OUTSIDE RECORDS SUMMARY | 2022-05-28 05:01 | XMS_ITS | Encounter Summary ---
:1940 Author Organization [facility] Address [address] [place] [address] Care Team Providers Name Role Phone Unavailable Primary Care Provider Unavailable Encounter Details Date Type Department Care Team Description 05/14/2022 Treatment [facility] Denilson Quinones MD [address] [place] [address] [place], [place] [phone] (Wo rk) Social History Tobacco Use Types Packs/Day Years Used Date Smoking Tobacco: Never Assessed Sex Assigned at Date Recorded Not on file documented as of this encounter Miscellaneous Notes Dialysis Note - Denilson Holly MD - 05/14/2022 1:29 PM CDT Date: May 14, 2022 Patient Name: Speedy Hendricks : 1940 Chart #: [id number] Sex: M 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 The patient complains of the following - 05/14/22: He has declined AVF/AVG placement at this time. He will consider again after seeing what 24hr urine shows. Cognitive issues remains, but seem somewhat improved. He notes good progress in strength at SNF, but RN here says still assist of 2 to get into chair. He still has wound vac. Cr has improved to low 2's, Cr was 2.54 after 4 day period without HD. We are planning 24hr urine for CrCl and UreaCl. 04/16/22: Meeting patient today. Met with patient and his daughter Raquel. Patient saw me in clinic in past, baseline Cr 1.5 range. 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 Recently on Mon/Fri HD, but still requiring HD. Transferred from [place] rehab to [facility] here, hoping to get home. First Hd here today, dry weight much lower than what they had listed it appears. Med list reviewed from [facility], on midodrine for hypotension with HD. The patient was seen while on dialysis. Dialysis continues to be required. 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 a- fib, COPD, HL, SPinal surgery, Multiple back surgeries with hardware, HTN, BPH Hx of above, complex co-morbidities, hospitalized in [place] for AAA rupture while on boat -> TEVAR extension on 01/03/22 -> multiple complications including ARF requiring CRRT/HD, staph pneumonia, chronic resp failure with long mech vent/trach (trach out), R hydropneumothorax, DVT, a-fih, UGI bleed, DIC, critical illness myopathy, sepsis, and dysphagia (had feeding tube, now removed). Went to rehab, transferred back to [place] to [facility] for ongoing rehab closer to home. He has [facility] and in [place]. His daughter Raquel is ICU/EMERGENCY CREW SUPERVISOR (ramone currently) and is very involved. Problem List No problem list is available. History not documented History not documented Review of Systems: No shortness of breath. No fever. No edema. No nausea. No report of cramps. Pt still producing urine. UOP has increased per his report Exam: HEENT - PERRLA. Lungs - Good respiratory effort. Clear. Heart - irregular, normal rate Abdomen - Soft and non distended. Edema - No edema. Medication List No medication list is available. Allergy List Allergen Reaction Reaction Severity Onset Date Penicillins Skin Rash~Skin Rash procaine Unknown Med list reviewed from [facility] Adequacy & Blood Pressure: spKt/V Gotch 1.8 (04/23/22) eKdrt/V 1.47 (04/23/22) spKt/V (Daugirdas II) 1.6300 (04/23/22) 1.3700 (04/16/22) BUN mg/dL 45 (05/07/22) 76 (05/02/22) 43 (04/23/22) 59 (04/16/22) UREA NITROGEN (MG/DL) IN SER/PLAS - POST DIALYSIS mg/dL 11 (04/23/22) 18 (04/16/22) URR % 74 (04/23/22) 69 (04/16/22) KT/V adequate. Meets prescribed frequency target. Hypotension avoided. Excessive weight gain avoided. Dry weight stable. Vascular Access: Type of access - Cath - Tunneled Planned access placement but he has declined for now. Will re-visit after 24hr urine results Anemia: HEMOGLOBIN (G/DL) IN BLOOD g/dL 10.5 (05/07/22) 10.3 (05/02/22) 11.0 (04/23/22) 11.1 (04/16/22) PLATELETS 1000/mcL 203 (04/23/22) 229 (04/16/22) IRON SATURATION % 31 (04/16/22) FERRITIN ng/mL 704 (04/23/22) 989 (04/16/22) Hemoglobin within target. Transferrin saturation within target. Supplemental iron not needed at this time. Labs today, will start iron/mircera protocol Nutrition: ALBUMIN (G/DL) g/dL 3.2 (04/23/22) 2.7 (04/16/22) Sodium mEq/L 143 (05/07/22) 143 (05/02/22) 139 (04/23/22) 145 (04/16/22) POTASSIUM (MMOL/L) IN SER/PLAS mEq/L 4.0 (05/07/22) 4.2 (05/02/22) 4.0 (04/23/22) 4.5 (04/16/22) BICARBONATE (CO2) mEq/L 28 (05/07/22) 26 (05/02/22) 27 (04/23/22) 27 (04/16/22) Albumin not adequate. Potassium controlled. Albumin improving, appetite improved, he is off of tube feeds now Bone and Mineral: CALCIUM mg/dL 9.1 (05/02/22) 8.6 (04/23/22) 8.2 (04/16/22) CALCIUM (MG/DL) CORRECTED FOR ALBUMIN IN SER/PLAS mg/dL 9.2 (04/23/22) 9.2 (04/16/22) PHOSPHATE (MG/DL) IN SER/PLAS mg/dL 4.5 (04/23/22) 3.7 (04/16/22) CALCIUM PHOSPHORUS PRODUCT, COR 41 (04/23/22) 34 (04/16/22) IPTH pg/mL 121 (04/23/22) 108 (04/16/22) Phosphorus controlled. PTH is within target range. Impression and Plan: Patient stable - continue current treatment parameters. Patient discussed with nursing. Continue current dialysis Some evidence of partial recovery of renal function. Muscle mass is low so Cr 2.2-2.5 does not necessarily suggest CrCl >10. I will get 24hr urine for CrCl and UreaCl. May be able to wean dialysis, will see. Denilson Holly MD [ Signed And locked electronically On 05/14/2022 at 01:33:08 PM ] Transcribed: Denilson Holly ( 05/14/2022 ) documented in this encounter Plan of Treatment Not on filedocumented as of this encounter Visit Diagnoses Not on filedocumented in this encounter
--- OUTSIDE RECORDS SUMMARY | 2022-05-28 05:01 | XMS_ITS | Encounter Summary ---
:1940 Author Organization [facility] Address [address] [place] [address] Care Team Providers Name Role Phone Unavailable Primary Care Provider Unavailable Encounter Details Date Type Department Care Team Description 05/23/2022 Orders Only [facility] Denilson Quinones MD [phone] [place] [address] [place], [place] [phone] (Wo rk) Social History Tobacco Use Types Packs/Day Years Used Date Smoking Tobacco: Never Assessed Sex Assigned at Date Recorded Not on file documented as of this encounter Plan of Treatment Not on filedocumented as of this encounter Procedures Procedure Name Priority Date/Time Associated Diagnosis Comme nts GFR (HC) Routine 05/23/2022 Results for thi s procedure are i n the results section . URINE CLEARANCE Routine 05/23/2022 Results for this [...] . documented in this encounter Results (ABNORMAL) URINE CLEARANCE (05/23/2022) P athologist Signature [...] 05/26/2022 Unless otherwise specified, test(s) performed at: [facility], [address] [place] [address], [place] [address] MANAGER FINANCIAL SERVICES: Raheem Malik M.D., Ph.D For any questions, please call customer service at FREQUENCY:OTHER Resulting Agency Comment Specimen source: Urine Denilson Holly MD LAB URINE ORDERABLES Performing Organization Address [facility] Phon e Number APS SPECTRA [facility] PATIENT INFORMATION (05/23/2022) athologist [facility] Patient BSA 1.75 sq. M. APS SPECTRA [facility] Comment: Normalized values are calculated using t he patient's actual BSA and normalized to the average BSA of 1.73m2. Specimen (Source) Anatomical Collection Method Collection Time Re ceived Time Location / / Volume Laterality 05/23/2022 05/26/2022 12:2 5 PM CDT Narrative APS SPECTRA [facility] - 05/26/2022 Unless otherwise specified, test(s) performed at: [facility], [address] [place] [address], [place] [address] MANAGER FINANCIAL SERVICES: Raheem Malik M.D., Ph.D For any questions, please call customer service at FREQUENCY:OTHER Resulting Agency Comment Specimen source: PD Fluid Denilson Holly MD LAB BLOOD ORDERABLES Performing Organization Address City/[facility] Phon e Number APS SPECTRA [facility] (ABNORMAL) Spectrae Chemistry (05/23/2022) P athologist Signature BUN 58 (H) 6 - 19 APS [...] Phon e Number APS SPECTRA [facility] GFR (05/23/2022) athologist Signature eGFR CKD-EPI CR 27 mL/min [facility]PS [facility] 2020 [facility] Comment: [facility] has implemented the recommended eGFR calculation that [...] 05/26/2022 Unless otherwise specified, test(s) performed at: [facility], [address] [place] [address], [place] [address] MANAGER FINANCIAL SERVICES: Raheem Malik M.D., Ph.D For any questions, please call customer service at FREQUENCY:OTHER Resulting Agency Comment Specimen source: Serum Denilson Holly MD LAB [id number] NSOLICITED RESULTS Performing Organization Address City/State/ZIP Code Phon e Number APS SPECTRA [facility] PATIENT INFORMATION (05/23/2022) athologist Signature Urine Volume 200 APS SPECTRA [facility] Collection 24.0 APS SPECTRA Interval, Ur [facility] Patient Weight 71.5 APS SPECTRA [facility] Patient Height 161.0 APS SPECTRA [facility] Specimen (Source) Anatomical Location Collection Method / Collectio n Time Received Time / Laterality Volume 05/23/2022 05/23/2022 Narrative APS SPECTRA [facility] - 05/26/2022 Unless otherwise specified, test(s) performed at: [facility], [address] [place] [address], [place] [address] MANAGER FINANCIAL SERVICES: Raheem Malik M.D., Ph.D For any questions, please call customer service at FREQUENCY:OTHER Resulting Agency Comment Specimen source: PD Fluid Denilson Holly MD LAB BLOOD ORDERABLES Performing Organization Address City/State/ZIP Code Phon e Number APS SPECTRA [facility] documented in this encounter Visit Diagnoses Not on filedocumented in this encounter
--- OUTSIDE RECORDS SUMMARY | 2022-05-28 05:01 | XMS_ITS | Encounter Summary ---
:1940 Author Organization [facility] Address [address] [place] [address] Care Team Providers Name Role Phone Unavailable Primary Care Provider Unavailable Encounter Details Date Type Department Care Team Description 05/07/2022 Orders Only [facility] Denilson Quinones MD [address] [place] [address] [place], [place] [phone] (Wo rk) Social History Tobacco Use Types Packs/Day Years Used Date Smoking Tobacco: Never Assessed Sex Assigned at Date Recorded Not on file documented as of this encounter Plan of Treatment Not on filedocumented as of this encounter Procedures Procedure Name Priority Date/Time Associated Diagnosis Comme nts GFR (HC) Routine 05/07/2022 Results for thi s procedure are in the resu lts section. HEMATOLOGY Routine 05/07/2022 Results for thi s procedure are in the resu lts section. CHEMISTRY Routine 05/07/2022 Results for thi s procedure are in the resu lts section. documented in this encounter Results (ABNORMAL) [facility]rae Chemistry (05/07/2022) P athologist Signature BUN 45 (H) 6 - 19 [facility] mg/dL [facility] Creatinine 2.18 (H) 0.60 - 1.30 [facility] mg/dL [facility] Comment: Custom Exception BUN/Creatinine Ratio 20.6 (H) 10.0 - 20.0 APS SPE CTRA [facility] Sodium 143 136 - 145 mEq/L [facility] Potassium 4.0 3.5 - 5.1 mEq/L [facility] Chloride 105 96 - 108 mEq/L [facility] Bicarbonate (CO2) 28 20 - 31 mEq/L APS SPEC TRA [facility] Comment: Please note change in reference range. Specimen (Source) Anatomical Collection Method Collection Time Re ceived Time Location / / Volume Laterality 05/07/2022 05/08/2022 2:47 PM CDT Resulting Agency Comment Specimen source: Serum Denilson Holly MD LAB BLOOD ORDERABLES Performing Organization Address City/[facility] Code Phon e Number [facility]PS [facility] GFR (05/07/2022) P athologist Signature eGFR CKD-EPI CR 30 mL/min [facility] 2020 [facility] Comment: [facility] (acquired by [employer]) has implemented the recommended eGFR calculation that [...] ceived Time Location / / Volume Laterality 05/07/2022 05/08/2022 2:47 PM CDT Narrative [facility]PS [facility] - 05/08/2022 Unless otherwise specified, test(s) performed at: [facility] (acquired by [employer]), [address] [place] [address], [place] [address] GLOBAL ACCOUNT EXECUTIVE: Raheem Malik M.D., Ph.D For any questions, please call customer service at FREQUENCY:OTHER Resulting Agency Comment Specimen source: Serum Denilson Holly MD LAB [id number] NSOLICITED RESULTS Performing Organization Address City/[facility] Code Phon e Number [facility] (ABNORMAL) HEMATOLOGY (05/07/2022) Analysis Performed At Patho logist Time Signature Hemoglobin 10.5 (L) 14.0 - [facility] 18.0 g/dL [facility] Hemoglobin x 3 31.5 (L) 42.0 - [facility] 54.0 % [facility] Specimen (Source) Anatomical Collection Method Collection Time Re ceived Time Location / / Volume Laterality 05/07/2022 05/08/2022 1:56 PM CDT Narrative [facility]PS [facility] - 05/08/2022 Unless otherwise specified, test(s) performed at: [facility] (ac[employer]), [address] [place] [address], [place] [address] GLOBAL ACCOUNT EXECUTIVE: Raheem Malik M.D., Ph.D For any questions, please call customer service at FREQUENCY:OTHER Resulting Agency Comment Specimen source: Blood Denilson Holly MD LAB BLOOD ORDERABLES Performing Organization Address City/State/ZIP Code Phon e Number [facility]PS [facility] documented in this encounter Visit Diagnoses Not on filedocumented in this encounter
--- OUTSIDE RECORDS SUMMARY | 2022-05-28 05:02 | XMS_ITS | Clinical Summary ---
:1940 Author Organization [facility] Address [address] [place] [address] Care Team Providers Name Role Phone Clinic, 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 A delay in comp atible RBCs may occur. Amlodipine 11/14/2017 Procaine Hcl 01/29/2011 Bumps in throat Penicillins Rash Low 01/29/2011 Medications Medication Sig Dispensed Refills Start Date End Date Status atorvastatin (LIPITOR) Take 1 tablet 30 tablet 0 05/12/2017 Active 40 MG tabletIndications: (40 mg) by mouth Hyperlipidemia LDL goal daily <70, Acute left-sided low back pain without sciatica Additional Information Patient taking differently: 40 mg Oral EVERY EVENING, Informant: Self, Reported on 09/28/2018 apixaban ANTICOAGULANT (ELIQUIS) Take 1 tablet (2.5 60 tablet 1 11/15/2017 Active 2.5 MG tabletIndications: mg) by mouth 2 times Transient cerebral ischemia, daily unspecified type metoprolol tartrate (LOPRESSOR) Take 50 mg by mouth 2 0 Active 50 MG tablet times daily acetaminophen (TYLENOL) 500 MG Take 500 mg by mouth 0 Active tablet 3 times daily as needed for mild pain lisinopril (PRINIVIL/ZESTRIL) 10 Take 5 mg by mouth 2 0 Active MG tablet times daily (0.5 x 10 mg = 5 mg dose) sodium bicarbonate 650 MG tablet Take 650 mg by mouth 0 Active At Bedtime terazosin (HYTRIN) 5 MG capsule Take 5 mg by mouth At 0 Active Bedtime oxyCODONE (ROXICODONE) 5 MG Take 1 tablet (5 mg) 20 tablet 0 0 11/09/2018 Active tabletIndications: Thoracic by mouth every 4 aortic aneurysm without rupture hours as needed for (H) moderate to severe pain Additional Information Patient not taking. Reported on 09/23/2021 Active Problems Problem Noted Date CKD (chronic kidney disease) stage 3, GFR 30-59 ml/min 11/14/2019 Thoracic aortic aneurysm 11/05/2018 AAA (abdominal aortic aneurysm) 09/28/2018 TIA (transient ischemic attack) 11/15/2017 Unresponsiveness 05/05/2017 Immunizations Name Administration Dates Next Due Flu, Unspecified 07/18/2014 Pneumococcal 23 valent 05/01/2009 Family History Medical History Relation Comments Coronary Artery Disease Brother 1 Hyperlipidemia Brother 1 Hypertension Brother 1 Coronary Artery Disease Brother 2 Hyperlipidemia Daughter 1 No Known Problems Daughter 2 Abdominal Aortic Aneurysm Father from AAA at age 61 Aneurysm Father ruptured AAA Hypertension Father Breast Cancer Mother Cerebrovascular Disease Mother Relation Status Comments Brother 1 Brother 2 Daughter 1 Daughter 2 Father Mother Social History Tobacco Use Types Packs/Day Years Used Date Former Smoker Cigarettes 0.25 Quit: 08/28/19 85 Smokeless Tobacco: Never Used Tobacco Cessation: Counseling Given: Yes Comments: quit 1984 Alcohol Use Standard Drinks/Week Comments Yes 0 (1 standard drink = 0.6 oz pure alcoho l) 10 per week Alcohol Habits Answer Date Recorded How often do you have a drink containing alcohol? Not asked How many drinks containing alcohol do you have on a typical Not asked day when you are drinking? How often do you have six or more drinks on one occasion? No t asked Comment: 10 per week 09/27/2012 Sex Assigned at Date Recorded Not on file Last Filed Vital Signs Vital Sign Reading Time Taken Comments Blood Pressure 161/78 09/23/2021 10:34 AM FRONT DESK MANAGER Pulse 57 09/23/2021 10:34 AM FRONT DESK MANAGER Temperature 36.6 ??C (97.9 ??F) 11/09/2018 7:31 AM FRONT DESK MANAGER Respiratory Rate 16 09/23/2021 10:34 AM FRONT DESK MANAGER Oxygen Saturation 99% 09/23/2021 10:34 AM FRONT DESK MANAGER Inhaled Oxygen Concentration - - Weight 79.4 kg (175 lb) 09/23/2021 10:34 AM FRONT DESK MANAGER Height 167.6 cm (5' 6) 09/23/2021 10:34 AM FRONT DESK MANAGER Body Mass Index 28.25 09/23/2021 10:34 AM FRONT DESK MANAGER Plan of Treatment Health Maintenance Due Date Last Done Comments ANNUAL REVIEW OF HM ORDERS 1940 MICROALBUMIN 1940 HEPATITIS C SCREENING 1960 ZOSTER IMMUNIZATION (1 of 1992 2) MEDICARE ANNUAL WELLNESS 2007 VISIT DTAP/TDAP/TD IMMUNIZATION 06/27/2019 06/27/2009 (2 - Td or Tdap) LIPID 11/05/2019 11/05/2018, 09/28/2018, 05/11/2017 BMP 11/09/2019 11/09/2018, 11/08/2018, 11/07/2018, Additional history exists HEMOGLOBIN 11/09/2019 11/09/2018, 11/08/2018, 11/07/2018, Additional history exists PHQ-2 (once per calendar 10/19/2021 year) COVID-19 Vaccine (4 - 11/25/2021 07/25/2021, 12/04/2020, Booster for Pfizer series) 11/15/2020 INFLUENZA VACCINE (#1) 2022 08/16/2021, 08/10/2020, 08/12/2018, Additional history exists FALL RISK ASSESSMENT 09/23/2022 09/23/2021, 05/17/2019, 11/26/2018 ADVANCE CARE PLANNING 09/29/2023 09/29/2018 HEPATITIS B IMMUNIZATION Aged Out 07/25/1991, 01/31/1991 No longer eligible based on patient 's age to complete this topic Pneumococcal Vaccine: 65+ Completed 12/02/2016, 10/03/2009 , Years 05/01/2009 URINALYSIS Completed 05/05/2017 IPV IMMUNIZATION Aged Out No longer eligi ble based on patient 's age to complete this topic MENINGITIS IMMUNIZATION Aged Out No longe r eligible based on patient 's age to complete this topic Medical Devices Implanted Type Area Surveillance Specialist Device Shelf Model / Identifier Expiration Serial / Date Lot Graft Master Matrix 10cc [id number] Bone/Tissue N/A: Back [employer] 04/17/2017 [id number] / Implanted: Qty: 1 on 11/29/2014 /Biologic / [id number] Medtronic Valiant Navion Thoracic Graft System (37mm X 37mm X 223mm X 20fr.) Graft N/A: Aorta [employer] 07/25/2020 [id number] / Implanted: Qty: 1 on 11/05/2018 by Juan Delcid MD at [facility] [id number] / Alessio Precut Contoured 70x5.5mm Metallic N/A: Back [employer] [id number] / Implanted: Qty: 2 on 11/29/2014 Hardware/An / chor NA Cervical Rods/Screws Angio-Seal Vip Vascular Closure Device Right: 08/18/2019 [id number] / Implanted: Qty: 1 on 11/05/2018 by Juan Delcid MD at [facility] Arterial / [id number] Description: Perclose Device sutured int o the right common femoral artery. Explanted Type Area Surveillance Specialist Device Shelf Model / Identifier Expiration Date Ser ial / Lot Pedicle Screws Metallic And Rods Hardware/Anch or Additional Health Concerns Infection Onset Date Last Indicated MRSAComment: Positive 02/17/11 and 09/22/12 11/05/2018 11/05/2018 Negatives 05/03/14 (HE), 12/01/14 (HE) Insurance Payer Benefit Plan / Subscriber ID Effective Phone Address T ype Group Dates MEDICARE MEDICARE FOR HB [id number] 2012-Prese [phone] ATTN CLAIMS Medicare SUPPLEMENT nt [address] [place] [address] BCBS BCBS TELIDA [id number] 2012-Prese [phone] [address] [address] PPO BLUE nt 00 [place] [address] Advance Directives For more information, please contact: [phone] Latest Code Status on File Code Status Date Activated Date Inactivated Comments Full Code 11/15/2017 2:04 AM 11/15/2017 2:27 PM Full Code 05/12/2017 1:29 PM 11/15/2017 2:04 AM Full Code 05/05/2017 5:50 PM 05/12/2017 1:29 PM Care Teams Labor Relations Consultant Relationship Specialty Start Date End Date [facility] PCP - General 05/12/[address] [place] [address] Gallito Gonzalez MD Assigned Heart and Vascular 09/29/21 [address] Provider ORLANDO GORDON [address]
--- OUTSIDE RECORDS SUMMARY | 2022-05-28 05:02 | XMS_ITS | Encounter Summary ---
:1940 Author Organization [facility] Address [address] [place] [address] Care Team Providers Name Role Phone Clinic, [facility] Primary Care Provider [phone] Encounter Details Date Type Department Care Team Description 12/08/2019 Orders Only [facility] Tho racic aortic aneurysm [facility] without rupture (H) [address] [place] [address] Social History Tobacco Use Types Packs/Day Years Used Date Former Smoker Cigarettes 0.25 Quit: 08/28/19 85 Smokeless Tobacco: Never Used Comments: quit 1984 Alcohol Use Standard Drinks/Week [...] Name Priority Date/Time Associated Diagnosis Comme nts CREATININE Routine 12/08/2019 10:59 AM Thoracic aortic Resul ts for this INSURANCE RATER aneurysm without procedure a re in the rupture (H) results section . documented in this encounter Results (ABNORMAL) Creatinine (12/08/2019 10:59 AM INSURANCE RATER) Analysis Performed At Patho logist Time Signature Creatinine 1.36 (H) 0.66 - 12/09/2019 [place] 1.25 mg/dL 9:03 AM [facility] GFR Estimate 50 (L) >60 12/09/2019 [place] mL/min/{1. 9:03 AM [facility] 73_m2} [facility] Comment: Non GFR Calc Starting 10/05/2018, serum creatinine ba sed estimated GFR (eGFR) will be calculated using the Chronic Kidney Dise [facility] Epidemiology Collaboration (CKD-EPI) equation. GFR Estimate If 58 (L) >60 mL/min/{1.73_m2} 12/09/2019 9:03 AM [facility] Comment: GFR Calc Starting 10/05/2018, serum creatinine ba sed estimated GFR (eGFR) will be calculated using the Chronic Kidney Dise [facility] Epidemiology Collaboration (CKD-EPI) equation. Specimen Anatomical Collection Method Collection Time Receive d Time (Source) Location / / Volume Laterality Blood specimen 12/08/2019 10:59 0 (specimen) AM INSURANCE RATER 11:04 AM INSURANCE RATER Ramiro Loco MD LAB - BLOOD ORDERABLES Performing Organization Address City/State/ZIP Code Phon e Number [facility] [address] [place] [address] documented in this encounter Visit Diagnoses Diagnosis Thoracic aortic aneurysm without rupture (H) Thoracic aneurysm without mention of rup ture documented in this encounter Additional Health Concerns Infection Onset Date Last Indicated Resolved Time MRSAComment: Positive 02/17/11 and 09/22/12 11/05/2018 019 Negatives 05/03/14 (HE), 12/01/14 (HE) documented as of this encounter Care Teams Quality Assurance Project Manager Relationship Specialty Start Date End Date Kehinde Portillo PCP - General 05/12/17 [address] [place] [address] documented as of this encounter
--- OUTSIDE RECORDS SUMMARY | 2022-05-28 05:02 | XMS_ITS | Encounter Summary ---
:1940 Author Organization [facility] Address [address] [place] [address] Care Team Providers Name Role Phone Clinic, [facility] Primary Care Provider [phone] Reason for Visit Reason Onset Date Comments Forms 06/30/2019 Encounter Details Date Type Department Care Team Description 06/30/2019 Telephone [facility] Jon White, Forms [phone] [place] [address] [phone] (Wo rk) Social History Tobacco Use Types [...] documented as of this encounter Miscellaneous Notes Telephone Encounter - Luh De Oliveira RN - 06/30/2019 3:07 PM CDT BRENDA faxed back and records faxed to them at [phone].Desire De Oliveira RN Telephone Encounter - Mallory Montgomery RN - 06/30/2019 1:04 PM CDT Flor over at [facility] called requesting patient records from his 06/02 appointment. Patient has been diagnosed with x3 basal cell carcinomas. Flor stated the patient is currently in the office for a procedure and needs the pathology sent KRISTYN. Informed Flor that we do need a release of infomration form in order to send any patinet information to an outside source. Informed Flor Iwould fax over the form for the patient to fill out. Flor seemed frustrated by the situation. Faxed form to [facility]. Flor voiced understanding. JOSE Lockwood-BSN-N [facility] [phone] documented in this encounter Plan of Treatment Not on filedocumented as of this encounter Visit Diagnoses Not on filedocumented in this encounter Additional Health Concerns Infection Onset Date Last Indicated Resolved Time MRSAComment: Positive 02/17/11 and 09/22/12 11/05/2018 019 Negatives 05/03/14 (HE), 12/01/14 (HE) documented as of this encounter Care Teams Market Reporter Relationship Specialty Start Date End Date [facility], [facility] PCP - General 05/12/[address] [place] [address] documented as of this encounter
--- OUTSIDE RECORDS SUMMARY | 2022-05-28 05:02 | XMS_ITS | Encounter Summary ---
:1940 Author Organization [facility] Address [address] [place] [address] Care Team Providers Name Role Phone Clinic, [facility] Primary Care Provider [phone] Reason for Visit Reason Onset Date Comments Path Results 06/02/2019 Encounter Details Date Type Department Care Team Description 06/02/2019 [facility] Jon White, Path Results [phone] [place] [address] [phone] (Wo rk) Social History Tobacco Use Types Packs/Day Years Used Date Former Smoker Cigarettes 0.25 Quit: 08/28/19 85 Smokeless Tobacco: Never Used Comments: quit 1985 Alcohol Use Standard Drinks/Week Comments Yes 0 [...] this encounter Miscellaneous Notes Telephone Encounter - Mallory Montgomery RN - 06/23/2019 11:47 AM CDT After multiple phone attempts, snail mail letter sent: Dear Speedy, The tissue samples that were removed have been found to be consistent with a basal cell skin cancer,one of the most common types of skin cancer. This type of skin cancer rarely spreads to other parts of the body. However, it should be treated, because this cancer can invade its surrounding tissue over time. I have included an educational pamphlet for your review. Recommendations : MO[facility] Surgery with Dr. Jon White, Database Security Expert to remove skin cancers. Thank you for allowing me to be involved in your health care and for choosing [facility]. If you have any questions or concerns please feel free to contact me at . Sincerely, Dr. Fernando White Telephone Encounter - Mallory Montgomery RN - 06/22/2019 9:06 AM CDT Called and LM for patient to call back in regards to scheduling x3 mohs appointments. ERMA LockwoodLaxmi [facility] [phone] Telephone Encounter - Mallory Montgomery RN - 06/17/2019 11:11 AM CDT Called and LM for patient to call back in regards to scheduling x3 mohs appointments. LENA Lockwood [facility] [phone] Telephone Encounter - Mallory Montgomery RN - 06/14/2019 10:15 AM CDT Called and LM for patient to call back in regards to scheduling x3 mohs appointments. LENA Lockwood [facility] [phone] Telephone Encounter - Mallory Montgomery RN - 06/13/2019 1:05 PM CDT Called and LM for patient to call back in regards to scheduling x3 mohs appointments. LENA Lockwood [facility] [phone] Telephone Encounter - Mallory Montgomery RN - 06/06/2019 4:22 PM CDT Called and spoke to patient. Educated patient on biopsy results- BCC x3. Educated patient on BCC andmohs. Patient stated his is currently in the hospital so he cannot schedule any appointments atthis time. Patient asked that I call him early next week. Patient voiced understanding. LENA Lockwood [facility] [phone] Telephone Encounter - Ryan Grady - 06/06/2019 3:44 PM CDT Please call patient on cell at [phone]. Telephone Encounter - Mallory Montgomery RN - 06/06/2019 8:40 AM CDT Called and LM for patient to call back in regards to biopsy results x3. LENA Lockwood [facility] [phone] Telephone Encounter - Mallory Montgomery RN - 06/03/2019 3:44 PM CDT Called and LM for patient to call back in regards to biopsy results x3. LENA Lockwood [facility] [phone] Telephone Encounter - Mallory Montgomery RN - 06/02/2019 2:10 PM CDT ----- Message from Jon White MD sent at 06/02/2019 2:06 PM CDT ----- R chest basal cell carcinoma L sideburn basal cell carcinoma L neck basal cell carcinoma Schedule excision x3 documented in this encounter Plan of Treatment Not on filedocumented as of this encounter Visit Diagnoses Not on filedocumented in this encounter Additional Health Concerns Infection Onset Date Last Indicated Resolved Time MRSAComment: Positive 02/17/11 and 09/22/12 11/05/2018 019 Negatives 05/03/14 (HE), 12/01/14 (HE) documented as of this encounter Care Teams Pouch Maker Relationship Specialty Start Date End Date [facility], [facility] PCP - General 05/12/[address] [place] [address] documented as of this encounter
--- OUTSIDE RECORDS SUMMARY | 2022-05-28 05:02 | XMS_ITS | Encounter Summary ---
:1940 Author Organization [place] Address [facility] [place] [address] Care Team Providers Name Role Phone Clinic, [facility] Primary Care Provider [phone] Reason for Visit Reason Comments RECHECK 6 month follow up visit. 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); Surgery Clinic Ramiro Loco MD [address] [place] [id number] CKD (chronic kidney disease) stage 3, GF R 30-59 ml/min (H) [place] [address] [address] [facility] [address] [place] [address] Social History Tobacco Use Types Packs/Day Years Used Date Former Smoker Cigarettes 0.25 Quit: 08/28/19 85 Smokeless Tobacco: Never Used Tobacco Cessation: Counseling Given: Yes Comments: quit 1985 Alcohol Use Standard Drinks/Week [...] on file documented as of this encounter Last Filed Vital Signs Vital Sign Reading Time Taken Comments Blood Pressure 128/76 11/09/2019 1:19 PM [employer] Pulse 59 11/09/2019 1:19 PM [employer] Temperature - - Respiratory Rate 16 11/09/2019 1:19 PM [employer] Oxygen Saturation 98% 11/09/2019 1:19 PM [employer] Inhaled Oxygen Concentration - - Weight 82.6 kg (182 lb) 11/09/2019 1:19 PM [employer] Height 167.6 cm (5' 6) 11/09/2019 1:19 PM [employer] Body Mass Index 29.38 11/09/2019 1:19 PM [employer] documented in this encounter Progress Notes Ramiro Loco MD - 11/09/2019 1:30 PM CST Speedy Hendricks is a 79-year-old gentleman who is status post TEVAR performed on 11/09/2019 using a Valient Navion 34 x 34 x 229 proximally and a 37 x 37 x 223 distally with roughly 12 to 15 cm of overlap. That graft extended from the left subclavian to just above the celiac artery. Surgery was performed by Dr. Brown. A 1 month postoperative CTA demonstrated a well-positioned thoracic endograft with no evidence of endoleak. He was also being followed for a 4.6 cm infrarenal AAA. Mr. Hendricks was pushing for repair of his infrarenal AAA due to a history of his father dying of a ruptured aneurysm. Dr. Brown recommended postponing EVAR due to diameter of 4.6 cm, increased risk of paralysis with prior TEVAR, and a rise in his baseline creatinine to 1.8 (GFR 37). Mr. Hendricks spent the last several months in [place]. Dr. Brown has left our practice. Mr. Hendricks presents to my vascular surgical office today to review a noncontrasted CT scan of the chest, abdomen, and pelvis and to once again discuss possible EVAR. He was accompanied by his daughter. He did have a fall while vacationing in [place] with multiple resultant rib fractures. Apart from that he was otherwise without complaints. Exam: Fit appearing male in no acute distress. Blood pressure 128/76 with a pulse of 59. Abdomen benign Femoral pulses 2+ bilaterally. Popliteal pulses 1+ bilaterally. Dorsalis pedis pulses 2+ bilaterally. Imaging: CT CHEST, ABDOMEN AND PELVIS WITHOUT CONTRAST 11/09/2019 11:25 AM ?? HISTORY: Follow-up for aortic aneurysm. ?? TECHNIQUE: Volumetric helical sections were acquired from the thoracic inlet to the ischial tuberosities without IV contrast. Coronal images were also reconstructed. Radiation dose for this scan was reduced using automated exposure control, adjustment of the mA and/or kV according to patient size, or iterative reconstruction technique. ?? COMPARISON: CT angiogram performed 05/17/2019. ?? FINDINGS: Chest: Thoracic aortic endograft extending from the mid aortic arch into the distal thoracic aorta is unchanged. The aneurysm sac in the mid descending thoracic aorta (series 3 image 92) has increased slightly in size, measuring 5.2 cm in diameter (previously by my measurement 4.8 cm). Atherosclerotic calcification of the thoracic aorta and coronary arteries is again noted. No pleural or pericardial effusions. No enlarged lymph nodes are identified in the chest. ?? Postoperative changes are noted in the lingula laterally. A few tiny noncalcified pulmonary nodules in both lungs are unchanged, with the largest in the right middle lobe anteriorly (series 5 image 190) measuring 0.3 cm. These are unchanged for greater than one year, and are therefore highly likely to be of benign etiology. Few small calcified granulomas are again noted bilaterally. Mild biapical scarring is again noted. Small hiatal hernia. ?? Abdomen and Pelvis: Infrarenal abdominal aortic aneurysm has increased slightly in size, measuring up to 5 cm AP x 4.8 cm transverse (previously by my measurement 4.8 cm AP x 4.5 cm transverse). There is advanced atherosclerotic aortoiliac calcification. Ectasia of the right common iliac artery is unchanged, measuring 2.1 cm. ?? No bowel obstruction. Colonic diverticulosis, without convincing evidence for diverticulitis. The appendix is not seen, and is surgically absent by history. No free fluid in the pelvis. Small fat-containing paraumbilical hernia. Exophytic 1.9 cm cyst in the interpolar region of the left kidney posteriorly is unchanged. The liver, gallbladder, spleen, adrenal glands, pancreas, and kidneys have otherwise unremarkable noncontrast appearances. ?? Degenerative changes are noted throughout the thoracolumbar spine. Postoperative changes of fusion are noted involving L2-S1. Thoracolumbar curve, convex left. Moderate age-indeterminate anterior compression of the T7 vertebral body is new since the previous exam. ?? IMPRESSION: 1. Thoracic aortic endograft is again noted, and is unchanged. 2. The aneurysm sac in the distal thoracic aorta and an infrarenal abdominal aortic aneurysm have increased slightly in size since the previous exam. 3. Moderate age-indeterminate anterior compression of the T7 vertebral body is new since the previous exam. ?? YOLANDA NICHOLS MD ASSESSMENT: 1. 1 year status post TEVAR with today's noncontrasted CT scan of the chest and abdomen showing a well-positioned endograft. I do not believe that there has been a significant change in aneurysmal diameter. I am unable to determine possible endoleak due to the noncontrasted study. 2. 5.0 cm infrarenal AAA with 2.1 cm right common iliac artery. 3. Chronic kidney disease stage III. 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 Aortic diameter at the celiac artery is 39 mm in the transverse plane. Aortic diameter at the SMA is 37 mm transversely. Aortic diameter at the level of the renal arteries is 31.8 mm. RECOMMENDATION: I had a avelina discussion with Mr. Hendricks and his daughter reviewing all the above. Previously, he had hoped to pursue EVAR for the infrarenal component of his AAA. With the aneurysmal involvement of his visceral aorta, I believe strong consideration would need to be given toward repair of the visceralsegment as well. This could involve either a customized branched endograft versus open repair. I would absolutely refer him to [facility] to discuss those surgical options. Presently repair is not yetindicated given maximal AAA diameter of 5.0 cm. He will therefore continue his medical regimen. We will recheck his creatinine. I will see him back again in 6 months with either a standard CTA of the chest, abdomen and pelvis versus a noncontrasted study depending upon his renal function. We did have a brief discussion about the challenging nature of any future repair including risks of paraplegia and worsening renal function which could even result in being dialysis dependent. Both and his daughter verbalized full understanding to the above. They are in complete agreement with our plan. Total bbjw-ni-zape time was 40 minutes, greater than 50% spent providing counseling and education. 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
--- OUTSIDE RECORDS SUMMARY | 2022-05-28 05:02 | XMS_ITS | Encounter Summary ---
:1940 Author Organization [place] Address [address] [facility] [facility] [place] [address] Care Team Providers Name Role Phone Clinic, [facility] Primary Care Provider [phone] Reason for Visit Reason Comments RECHECK History of thoracic aortic a neurysm without rupture; 6 month follow up to 11-26-[address] Brown Encounter Details Date Type Department Care Team Description 05/17/2019 Office Visit [facility] Butch Brown Abdominal aortic aneurysm (AAA) without rupture (H) (Primary Dx); Vascular Clinic Félix Jay MD Thoracic aortic aneurysm without rupture (H) [address] [place] [phone] [place] [id number] Social History Tobacco Use Types Packs/Day Years [...] Sign Reading Time Taken Comments Blood Pressure 175/72 05/17/2019 11:20 AM CDT Pulse 50 05/17/2019 11:20 AM CDT Temperature - - Respiratory Rate - - Oxygen Saturation - - Inhaled Oxygen Concentration - - Weight - - Height - - Body Mass Index - - documented in this encounter Progress Notes Von Landeros CMA - 05/17/2019 11:30 AM CDT Speedy Hendricks is a 78 year old male who presents for: Chief Complaint Patient presents with ??? RECHECK History of thoracic aortic aneurysm without rupture; 6 month follow up to 11-26-[address] Brown Vitals: Vitals: 05/17/19 1120 BP: (!) 175/72 BP Location: Left arm Patient Position: Chair Cuff Size: Adult Regular Pulse: 50 BMI: Estimated body mass index is 31.15 kg/m?? as calculated from the following: Height as of 11/26/18: 5' 6 (1.676 m). Weight as of 11/26/18: 193 lb (87.5 kg). Pain Score: Data Unavailable Von Landeros Butch Brown MD - 05/17/2019 11:30 AM CDT Vascular Surgery Clinic Note ?? Speedy continues to do well postoperatively and his strength has improved significantly since operation. His daughter is present with him today in clinic and she is expressing that during his hospitalstay from the last surgery he had significant problems when he got home with weakness and recovery was prolonged. Sounds like surgery is significantly affected his quality of life temporarily. He seemsto be back to baseline he still has anxiety about his abdominal aortic aneurysm which measures 4.6 cm on review of today's imaging study. He did have a father that from an aneurysm. At thistime we checked his creatinine today and is slightly up at 1.8 from a baseline about 1.2 probably secondary to dehydration according to the family. I would like to wait a little bit longer before we attempt fixing this aneurysm because there is some risk of paraplegia given that we cover the long segment of descending thoracic aorta to fix his two thoracic aortic aneurysms. The patient plans to go to [place] this fall and is back sometime in August I will see him back at the 6-month visit with a repeat CT scan of the chest abdomen and pelvis without contrast to evaluate his previous TEVAR and then discuss potential treatment for his abdominal aortic aneurysm. Should be noted that at the last operation we had difficulty with spinal drain because of multiple back fusions. This will have to be coordinated beforehand probably with neurology inorder to get a spinal drain to help reduce the risk of paraplegia. We also had a discussion today inclinic about screening within the family of aortic aneurysms. His father aneurysm in his early 60s and he says his aneurysm was diagnosed in his mid 50s. I recommended to the daughter and her siblings at the start screening sometime around 50 years of age. ?? Physical Examination: BP (!) 175/72 (BP Location: Left arm, Patient Position: Chair, Cuff Size: Adult Regular) Pulse 50 Gen: NAD, alert and oriented x3 HEENT: PERRLA, mucous membranes moist Ext: warm and dry. Well perfused. He has normal gait and motor bilateral lower legs. Left groin incision is well healed with good scar tissue formation. Right groin access site with still small amount of ecchymosis, but no mass or hematoma. ?? A: 78 yo male s/p TEVAR for thoracic aortic aneurysm and extensive family history of aneurysm disease and still a 4.6 cm infra-renal AAA. ?? Plan: ?? I will plan to see Speedy back at the 6 month post-op visit for evaluation of his repair. The imaging today looks good with no signs of endoleak and the TEVAR looks to be in good position. His creatinine was elevated at 1.8 and so we did not obtain a CT angiogram today. We had a long discussion which is detailed above and will continue to watch his aneurysm for the next 6 months allow him to continueto recovery from surgery prior to repair of his abdominal aortic aneurysm. Both the patient and his daughter are comfortable with this plan they will call me sooner if he is having difficulty with anxiety and wants the aneurysm fixed sooner. I have explained to them that does carry some significant risk of paraplegia given that a long segment of thoracic aorta that was previously covered. I spent 15 minutes of [id number] time, > 50% spent counseling and coordinating care. Butch Brown MD Vascular Surgery documented in this encounter Plan of Treatment Not on filedocumented as of this encounter Visit Diagnoses Diagnosis Abdominal aortic aneurysm (AAA) without rupture (H) - Primary Thoracic aortic aneurysm without rupture (H) Thoracic aneurysm without mention of rup ture documented in this encounter Additional Health Concerns Infection Onset Date Last Indicated Resolved Time MRSAComment: Positive 02/17/11 and 09/22/12 11/05/2018 019 Negatives 05/03/14 (HE), 12/01/14 (HE) documented as of this encounter Care Teams Coating And Baking Operator Relationship Specialty Start Date End Date [facility] PCP - General 05/12/17 [address] [place] [address] documented as of this encounter
--- OUTSIDE RECORDS SUMMARY | 2022-05-28 05:02 | XMS_ITS | Encounter Summary ---
:1940 Author Organization [facility] Address [address] [place] [address] Care Team Providers Name Role Phone Unavailable Primary Care Provider Unavailable Encounter Details Date Type Department Care Team Description 04/23/2022 Orders Only [facility] Denilson Quinones MD [address] [place] [address] [place], [place] [phone] (Wo rk) Social History Tobacco Use Types Packs/Day Years Used Date Smoking Tobacco: Never Assessed Sex Assigned at Date Recorded Not on file documented as of this encounter Plan of Treatment Not on filedocumented as of this encounter Procedures Procedure Name Priority Date/Time Associated Diagnosis Comme nts HD KINETICS Routine 04/23/2022 Results for thi [...] section . documented in this encounter Results Spectra JALE[facility] Lab Results (04/23/2022) P athologist Signature spKt/V Gotch 1.80 JALEEL [...] Address City/State/ZIP Code Phon e Number JALEEL [employer] (04/23/2022) athologist Signature Aluminum <5 0 - 10 APS [facility]PECTRA mcg/L [facility] Comment: This test was developed and its performa nce characteristics determined by [facility]. It has not been cleared or approved by the FDA. The laboratory is regulated under CLIA a s qualified to perform high complexity testing. This test is used fo r clinical purposes. It should not be regarded as investigational or fo r research. Test performed at [facility], [address] [place] [address]. Telephone . [facility] Direct or: Henok Correa MD. Specimen (Source) Anatomical Collection Method Collection Time Re ceived Time Location / / Volume Laterality 04/23/2022 04/25/2022 7:04 PM CDT Narrative APS SPECTRA [facility] - 04/27/2022 Unless otherwise specified, test(s) performed at: [facility], [address] [place] [address], [place] [address] EARLY CHILDHOOD DIRECTOR: Raheem Malik M.D., Ph.D For any questions, please call customer service at FREQUENCY:MONTHLY Resulting Agency Comment Specimen source: Serum Denilson Holly MD LAB BLOOD ORDERABLES Performing Organization Address City/State/ZIP Code Phon e Number APS SPECTRA [facility] IMMUNO CHEMISTRY (04/23/2022) athologist Signature Hep B Surface Negative Negative [facility] Ag [facility] Hepatitis B 10 mIU/mL [facility] Surface Ab [facility] Comment: The anti-HBs (Hepatitis B surface antibo dy) is greater than or equal to 10 mIU/mL and implies immunity. The angela ent has either had an antibody response to HBV vaccination, received a transfusion, or has recovered from HBV infection. For post-vaccination antibody testing guidelines for the general public, refer to MMWR [facility] 2004/Vol.54 (No. 16); -, and for healthcare workers, refer to MMWR October 07, 2013/Vol.62 (No. 10); 1-18. Reference Range: <10 mIU/mL ? Non-Immune >=10 mIU/mL ?Immune The magnitude of the measured result abo ve 10 mIU/mL is not indicative of the total amount of antibody present. Hep B Core Total Ab Negative Negative APS SPECTR A [facility] Comment: Hep B Core Ab, Total appears during the acute infection stage and remains reactive/positive throughout the recovery stage. The above test result was obtained using [employer] IM chemiluminescent method. Results obtained with different assay methods or kits cannot be used interchangeably. Specimen (Source) Anatomical Collection Method Collection Time Re ceived Time Location / / Volume Laterality 04/23/2022 04/25/2022 2:35 PM CDT Resulting Agency Comment Specimen source: Plasma Denilson Holly MD LAB BLOOD ORDERABLES Performing Organization Address City/State/ZIP Code Phon e Number APS SPECTRA [facility] (ABNORMAL) Spectrae Chemistry (04/23/2022) P athologist Signature PTH 121 (H) 16 - 80 [facility] pg/mL [facility] Specimen (Source) Anatomical Collection Method Collection Time Re ceived Time Location / / Volume Laterality 04/23/2022 04/25/2022 2:35 PM CDT Narrative APS SPECTRA [facility] - 04/26/2022 Unless otherwise specified, test(s) performed at: [facility], [address] [place] [address], [place] [address] EARLY CHILDHOOD DIRECTOR: Raheem Malik M.D., Ph.D For any questions, please call customer service at FREQUENCY:MONTHLY Resulting Agency Comment Specimen source: Plasma Denilson Holly MD LAB BLOOD ORDERABLES Performing Organization Address City/State/ZIP Code Phon e Number APS SPECTRA [facility] (ABNORMAL) HEMATOLOGY (04/23/2022) Patholo gist Method Time Signature WBC 6.81 4.80 - [facility] 10.80 [facility] 1000/mcL RBC 3.65 (L) 4.70 - APS SPECTRA 6.10 [facility] mill/mcL Hemoglobin 11.0 (L) 14.0 - APS [facility]PECTRA 18.0 g/dL [facility] Hemoglobin x 3 33.0 (L) 42.0 - APS [facility]PECTRA 54.0 % [facility] Hematocrit 37.2 (L) 42.0 - APS SPECTRA 52.0 % [facility] MCV 102 (H) 80 - 100 [facility] fl [facility] MCH 30.0 27.0 - APS [facility]PECTRA 31.0 pg [facility] MCHC 29.5 (L) 30.0 - APS [facility]RA 36.0 g/dL [facility] RDW 15.6 (H) 11.5 - APS [facility]PECTRA 14.5 % [facility] Neutrophils 73.8 40.0 - APS [facility]PECTRA 75.0 % [facility] Lymphocytes 14.3 (L) 19.0 - APS [facility]PECT[facility] Relative 48.0 % [facility] Monocytes 7.4 3.0 - 10.0 [facility] % [facility] Eosinophils 1.6 0.0 - 7.0 [facility]PS [facility] Relative % [facility] Basophils 0.8 0.0 - 1.5 [facility] Relative % [facility] YARIEL 2.0 0.0 - 4.0 APS [facility]PECT[facility] % [facility] Platelets 203 130 - 400 A[facility]RA 1000/mcL [facility] Specimen (Source) Anatomical Collection Method Collection Time Re ceived Time Location / / Volume Laterality 04/23/2022 04/25/2022 5:40 PM CDT Narrative APS SPECTRA [facility] - 04/25/2022 Unless otherwise specified, test(s) performed at: [facility], [address] [place] [address], [place] [address] EARLY CHILDHOOD DIRECTOR: Raheem Malik M.D., Ph.D For any questions, please call customer service at FREQUENCY:MONTHLY Resulting Agency Comment Specimen source: Blood Denilson Holly MD LAB BLOOD ORDERABLES Performing Organization Address City/State/ZIP Code Phon e Number APS S[facility]RA [facility] HD KINETICS (04/23/2022) P athologist Signature % Urea 74 65 - 80 % [facility] Reduction [facility] Specimen (Source) Anatomical Collection Method Collection Time Re ceived Time Location / / Volume Laterality 04/23/2022 04/25/2022 3:58 PM CDT Resulting Agency Comment Specimen source: Plasma Denilson Holly MD LAB BLOOD ORDERABLES Performing Organization Address City/State/ZIP Code Phon e Number APS SPECT[facility] POST CHEMISTRY (04/23/2022) P athologist Signature BUN Post 11 6 - 19 APS [facility]PECT[facility] Dialysis mg/dL [facility] Specimen (Source) Anatomical Collection Method Collection Time Re ceived Time Location / / Volume Laterality 04/23/2022 04/25/2022 3:58 PM CDT Narrative APS SPECTRA [facility] - 04/25/2022 Unless otherwise specified, test(s) performed at: [facility], [address] [place] [address] gideon [facility] [place] [address] EARLY CHILDHOOD DIRECTOR: Raheem Malik M.D., Ph.D For any questions, please call customer service at FREQUENCY:MONTHLY Resulting Agency Comment Specimen source: Plasma Denilson Holly MD LAB BLOOD ORDERABLES Performing Organization Address City/State/ZIP Code Phon e Number APS SPECTRA [facility] (ABNORMAL) Spectrae Chemistry (04/23/2022) P athologist Signature BUN 43 (H) 6 - 19 APS [facility]PECT[facility] mg/dL [facility] Creatinine 2.52 (H) 0.60 - 1.30 APS [facility]PECTRA mg/dL [facility] Comment: Custom Exception BUN/Creatinine Ratio 17.1 10.0 - 20.0 APS SPE CTRA [facility] Sodium 139 136 - 145 mEq/L [facility] Potassium 4.0 3.5 - 5.1 mEq/L [facility] [place] [facility] Chloride 101 96 - 108 mEq/L [facility] Bicarbonate (CO2) 27 20 - 31 mEq/L APS SPEC TRA [facility] Comment: Please note change in reference range. Calcium 8.6 (L) 8.7 - 10.4 mg/dL APS SPECTRA K [facility] Comment: Please note change in reference range. Corrected Calcium 9.2 8.7 - 10.4 mg/dL APS S PECTRA [facility] Comment: Corrected Calcium is not equivalent to m easured Ionized Calcium. Phosphorus 4.5 2.6 - 4.5 mg/dL APS SPECTRA K [facility] Calcium Phosphorus Product 39 0 - 54 APS SPECTRA [facility] Calcium Phosporus Product, Cor 41 0 - 54 APS SPECTRA [facility] Alkaline Phosphatase 92 40 - 129 U/L APS SP ECTRA [facility] Total Protein 5.9 (L) 6.0 - 8.5 g/dL APS SPECTRA [facility] Albumin 3.2 (L) 3.5 - 5.2 g/dL [facility]PS [facility] [place] Globulin, Total 2.7 2.0 - 4.0 g/dL APS SPECT RA [facility] A/G Ratio 1.2 1.0 - 2.0 APS SPECTRA [facility] Magnesium 1.6 1.6 - 2.6 mg/dL [facility] [place] [facility] Ferritin 704 (H) 22 - 322 ng/mL [facility] [place] Iron 52 45 - 160 mcg/dL APS SPECT[facility] UIBC 168 155 - 355 mcg/dL APS SPECTRA [facility] TIBC 220 185 - 515 mcg/dL APS SPECTRA K [facility] Iron Saturation (TSat) 24 20 - 55 % APS SPE CTRA [facility] Specimen (Source) Anatomical Collection Method Collection Time Re ceived Time Location / / Volume Laterality 04/23/2022 04/25/2022 3:46 AM CDT Narrative APS SPECTRA [facility] - 04/25/2022 Unless otherwise specified, test(s) performed at: [facility], [address] [place] [address] gideon [facility] [place] [address] EARLY CHILDHOOD DIRECTOR: Raheem Malik M.D., Ph.D For any questions, please call customer service at FREQUENCY:MONTHLY Resulting Agency Comment Specimen source: Serum Denilson Holly MD LAB BLOOD ORDERABLES Performing Organization Address City/State/ZIP Code Phon e Number APS SPECTRA [facility] documented in this encounter Visit Diagnoses Not on filedocumented in this encounter
--- OUTSIDE RECORDS SUMMARY | 2022-05-28 05:02 | XMS_ITS | Encounter Summary ---
:1940 Author Organization [place] Address [address] [place] [address] Care Team Providers Name Role Phone [facility], [facility] Primary Care Provider [phone] Encounter Details Date Type Department Care Team Description 06/02/2019 Travel Social History Tobacco Use Types Packs/Day Years [...] documented as of this encounter Care Teams Residence Supervisor Relationship Specialty Start Date End Date [facility], [facility] PCP - General 05/12/[address] [place] [address] documented as of this encounter
--- OUTSIDE RECORDS SUMMARY | 2022-05-28 05:02 | XMS_ITS | Encounter Summary ---
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 documented as of this encounter Plan of Treatment Not on filedocumented as of this encounter Visit Diagnoses Not on filedocumented in this encounter Additional Health Concerns Infection Onset Date Last Indicated Resolved Time MRSAComment: Positive 02/17/11 and 09/22/12 11/05/2018 019 Negatives 05/03/14 (HE), 12/01/14 (HE) documented as of this encounter Care Teams Private Investigator Surveillance Relationship Specialty Start Date End Date [facility], [facility] [place] PCP - General 05/12/17 [address] [id number] documented as of this encounter
--- OUTSIDE RECORDS SUMMARY | 2022-05-28 05:02 | XMS_ITS | Encounter Summary ---
:1940 Author Organization [place] Address [address] [facility] [place] [address] Care Team Providers Name Role Phone Clinic, [facility] Primary Care Provider [phone] Encounter Details Date Type Department Care Team Description 11/15/2019 Orders Only [facility] Ramiro Loco Thor[facility] Félix Garcia MD aneurysm without [address] rupt ure (H) (Primary [address] Dx) [place] [id number] [place] [id number] Social History Tobacco Use Types Packs/Day Years [...] Not on filedocumented as of this encounter Results (ABNORMAL) Creatinine (12/08/2019 10:59 AM RN CHEMICAL DEPENDENCY) Analysis Performed At Patho logist Time Signature Creatinine 1.36 (H) 0.66 - 12/09/2019 [place] 1.25 mg/dL 9:03 AM [facility] GFR Estimate 50 (L) >60 12/09/2019 [place] mL/min/{1. 9:03 AM [facility] 73_m2} [facility] Comment: Non GFR Calc Starting 10/05/2018, serum creatinine ba sed estimated GFR (eGFR) will be calculated using the Chronic Kidney Dise ase Epidemiology Collaboration (CKD-EPI) equation. GFR Estimate If 58 (L) >60 mL/min/{1.73_m2} 12/09/2019 9:03 AM [facility] Comment: GFR Calc Starting 10/05/2018, serum creatinine ba sed estimated GFR (eGFR) will be calculated using the Chronic Kidney Dise [facility] Epidemiology Collaboration (CKD-EPI) equation. Specimen Anatomical Collection Method Collection Time Receive d Time (Source) Location / / Volume Laterality Blood specimen 12/08/2019 10:59 0 (specimen) AM RN CHEMICAL DEPENDENCY 11:04 AM RN CHEMICAL DEPENDENCY Ramiro Loco MD LAB - BLOOD ORDERABLES Performing Organization Address City/State/ZIP Code Phon e Number [facility] [address] [place] [address] documented in this encounter Visit Diagnoses Diagnosis Thoracic aortic aneurysm without rupture (H) - Primary Thoracic aneurysm without mention of rup ture documented in this encounter Additional Health Concerns Infection Onset Date Last Indicated Resolved Time MRSAComment: Positive 02/17/11 and 09/22/12 11/05/2018 019 Negatives 05/03/14 (HE), 12/01/14 (HE) documented as of this encounter Care Teams Health Benefits Specialist Relationship Specialty Start Date End Date [facility] PCP - General 05/12/[address] [place] [address] documented as of this encounter
--- OUTSIDE RECORDS SUMMARY | 2022-05-28 05:02 | XMS_ITS | Encounter Summary ---
:1940 Author Organization [facility] Address [address] [place] [address] Care Team Providers Name Role Phone Unavailable Primary Care Provider Unavailable Encounter Details Date Type Department Care Team Description 04/16/2022 Treatment [facility] Denilson Quinones MD [address] [place], [place] [phone] (Wo rk) Social History Tobacco Use Types Packs/Day Years Used Date Smoking Tobacco: Never Assessed Sex Assigned at Date Recorded Not on file documented as of this encounter Miscellaneous Notes Dialysis Note - Denilson Holly MD - 04/16/2022 3:44 PM CDT Date: Apr 16, 2022 Patient Name: Speedy Hendricks : 1940 Chart #: [id number] Sex: M Patient Type: DEJA Modality: Hemodialysis Analytics Senior Manager: Denilson Holly MD Location: [place] [phone] Schedule: M-W-F 2nd Shift Initial Access Date Regular Chronic Dialysis Began: 01/08/2022Initial Modality: Hemodialysis Initial Access used on first patient dialysis: Catheter - No Reason Selected Most recent History and Physical: 04/16/2022 Denilson Holly MD [ Signed And locked electronically On 04/16/2022 at 02:44:03 PM ] Transcribed: Denilson Holly MD ( 04/16/2022 ) Dialysis Note - Denilson Holly MD - 04/16/2022 2:44 PM CDT Date: Apr 16, 2022 Patient Name: Speedy Hendricks : 1940 Chart #: [id number] Sex: M HYDRAULIC PRESS IN OPERATOR: Denilson Holly MD LOCATION: [phone] SCHEDULE: -W- 2nd Shift Chief Complaint: Acute kidney injury. The patient complains of the following - 04/16/22: Meeting patient today. Met with patient and his daughter Raquel. Patient saw me in clinic in past, baseline Cr 1.5 range. 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 Recently on Mon/Fri HD, but still requiring HD. Transferred from [place] rehab to [facility] here, hoping to get home. First Hd here today, dry weight much lower than what they had listed it appears. Med list reviewed from [facility], on midodrine for hypotension with HD. The [...] Hx of above, complex co-morbidities, hospitalized in [place] for AAA rupture while on boat -> TEVAR extension on 01/03/22 -> multiple complications including ARF requiring CRRT/HD, staph pneumonia, chronic resp failure with long mech vent/trach (trach out), R hydropneumothorax, DVT, a-fih, UGI bleed, DIC, critical illness myopathy, sepsis, and dysphagia (had feeding tube, now removed). Went to rehab, transferred back to [place] to [facility] for ongoing rehab closer to home. [facility] [place]. His daughter Raquel is ICU/COTTON EXPERT (ramone currently) and is very involved. Problem List No problem list is available. History not documented History not documented Review of Systems: No shortness of breath. No fever. Edema noted. No nausea. No report of cramps. Pt still producing urine. UOP has increased Exam: HEENT - PERRLA. Lungs - Good respiratory effort. Clear. Heart - irregular, normal rate Abdomen - Soft and non distended. Edema - 1 plus. below knees Medication List No medication list is available. Allergy List Allergen Reaction Reaction Severity Onset Date Penicillins Skin Rash~Skin Rash procaine Unknown Med list reviewed from [facility] Blood Pressure: Dry weight decreased. Labs today Will set to off weight today, 1.5L UF goal today with close monitoring of BP. He is on midodrine pre-HD. Vascular Access: Type of access - Cath - Tunneled Will send to [facility] for AVF/AVG placement as on HD for 3 months. Discussed with patient and his daughter who both agree Anemia: Labs today, will start iron/mircera protocol Nutrition: Labs today Bone and Mineral: Labs today Impression and Plan: Patient stable - continue current treatment parameters. Patient discussed with nursing. First treatment with us today. 1.5L UF, set to off weight, challenge EDW slowly. Start with TIW HD, monitor for need, will get labs today and monitor renal function. His UOP has been increasing per report so will keep DEJA on HD. Still could recover Will get arm access placed Denilson Holly MD [ Signed And locked electronically On 04/16/2022 at 02:55:13 PM ] Transcribed: Denilson Holly ( 04/16/2022 ) documented in this encounter Plan of Treatment Not on filedocumented as of this encounter Visit Diagnoses Not on filedocumented in this encounter
--- OUTSIDE RECORDS SUMMARY | 2022-05-28 05:02 | XMS_ITS | Encounter Summary ---
:1940 Author Organization [place] Address [address] [place] [address] Care Team Providers Name Role Phone [facility], [facility] Primary Care Provider [phone] Encounter Details Date Type Department Care Team Description 08/08/2021 Travel Social History Tobacco Use Types Packs/Day [...] been in contact with No / Unsure 08/08/2021 3:53 PM CDT someone who was confirmed or suspected to have Coronavirus / COVID-19? documented as of this encounter Plan of Treatment Not on filedocumented as of this encounter Visit Diagnoses Not on filedocumented in this encounter Additional Health Concerns Infection Onset Date Last Indicated Resolved Time MRSAComment: Positive 02/17/11 and 09/22/12 11/05/2018 019 Negatives 05/03/14 (HE), 12/01/14 (HE) documented as of this encounter Care Teams Spraying Machine Operator Relationship Specialty Start Date End Date [facility] PCP - General 05/12/17 [address] [phone] documented as of this encounter
--- OUTSIDE RECORDS SUMMARY | 2022-05-28 05:02 | XMS_ITS | Encounter Summary ---
:1940 Author Organization [place] Address [address] [place] [address] Care Team Providers Name Role Phone [facility] Primary Care Provider [phone] Encounter Details Date Type Department Care Team Description 11/26/2018 Travel Social History Tobacco Use Types Packs/Day [...] documented as of this encounter Care Teams Outpatient Program Coordinator Relationship Specialty Start Date End Date [facility] PCP - General 05/12/[address] [place] [address] documented as of this encounter
--- OUTSIDE RECORDS SUMMARY | 2022-05-28 05:02 | XMS_ITS | Encounter Summary ---
:1940 Author Organization [facility] Address [address] [place] [address] Care Team Providers Name Role Phone Clinic, [facility] Primary Care Provider [phone] Reason for Visit Reason Comments Skin Check FSE Encounter Details Date Type Department Care Team Description 06/02/2019 Office Visit [facility] Jon White of skin cancer (Primary Dx); Clinic [place] MD Aubrey Lentigo; [place] [address] Seborrheic keratosis; [address] [address] Angioma of skin; [place], [place] [phone] Dermal nevus ; [phone] (Work) Basal cell carcinoma (BCC) of anterior c hest; [phone] Basal wilton l carcinoma (BCC) of sideburn area; Basal cell carc inoma of neck Social History Tobacco Use Types Packs/Day Years Used Date Former Smoker Cigarettes 0.25 Quit: 08/28/19 85 Smokeless Tobacco: Never Used Tobacco Cessation: Counseling Given: No Comments: quit 1984 Alcohol Use Standard Drinks/Week [...] Sign Reading Time Taken Comments Blood Pressure 153/67 06/02/2019 1:11 PM CDT Pulse 56 06/02/2019 1:11 PM CDT Temperature - - Respiratory Rate - - Oxygen Saturation 98% 06/02/2019 1:11 PM CDT Inhaled Oxygen Concentration - - Weight - - Height - - Body Mass Index - - documented in this encounter Patient Instructions Patient InstructionsIra Uribe CMA - 06/02/2019 1:15 PM CDT Wound Care Instructions FOR SUPERFICIAL WOUNDS [facility] [phone] [facility] [phone] AFTER 24 HOURS YOU SHOULD REMOVE THE BANDAGE AND BEGIN DAILY DRESSING CHANGES FOLLOWS: 1) Remove Dressing. 2) Clean and dry the area with tap water using a Q-tip or sterile gauze pad. 3) Apply Vaseline, Aquaphor, Polysporin ointment or Bacitracin ointment over entire wound. Do NOT use Neosporin ointment. 4) Cover the wound with a band-aid, or a sterile non-stick gauze pad and micropore paper tape REPEAT THESE INSTRUCTIONS AT LEAST ONCE A DAY UNTIL THE WOUND HAS COMPLETELY HEALED. It is an old wives tale that a wound heals better when it is exposed to air and allowed to dry out. The wound will heal faster with a better cosmetic result if it is kept moist with ointment and covered with a bandage. Do not let the wound dry out. Supplies Needed: *Cotton tipped applicators (Q-tips) *Polysporin Ointment or Bacitracin Ointment (NOT NEOSPORIN) *Band-aids or non-stick gauze pads and micropore paper tape. PATIENT INFORMATION: During the healing process you will notice a number of changes. All wounds develop a small halo of redness surrounding the wound. This means healing is occurring. Severe itching with extensive redness usually indicates sensitivity to the ointment or bandage tape used to dress the wound. You should call our office if this develops. Swelling and/or discoloration around your surgical site is common, particularly when performed around the eye. All wounds normally drain. The larger the wound the more drainage there will be. After 7-10 days, you will notice the wound beginning to shrink and new skin will begin to grow. The wound is healed whenyou can see skin has formed over the entire area. A healed wound has a healthy, shiny look to the surface and is red to dark pink in color to normalize. Wounds may take approximately 4-6 weeks to heal.Larger wounds may take 6-8 weeks. After the wound is healed you may discontinue dressing changes. You may experience a sensation of tightness as your wound heals. This is normal and will gradually subside. Your healed wound may be sensitive to temperature changes. This sensitivity improves with time, but if you???re having a lot of discomfort, try to avoid temperature extremes. Patients frequently experience itching after their wound appears to have healed because of the continue healing under the skin. Plain Vaseline will help relieve the itching. POSSIBLE COMPLICATIONS BLEEDIN. Leave the bandage in place. 2. Use tightly rolled up gauze or a cloth to apply direct pressure over the bandage for 30 minutes. 3. Reapply pressure for an additional 30 minutes if necessary 4. Use additional gauze and tape to maintain pressure once the bleeding has stopped. documented in this encounter Progress Notes Jon White MD - 06/02/2019 1:15 PM CDT Speedy Hendricks is a 78 year old year old male patient here today for hx of non- melanoma skin cancer. Today he notes spot on right chest. . Patient states this has been present for a while. Patient reports the following symptoms: new. Patient reports the following previous treatments none. Patient reports the following modifying factors none. Associated symptoms: none. Patient has no other skin complaints today. Remainder of the HPI, Meds, PMH, Allergies, FH, and SH was reviewed in chart. Past Medical History: Diagnosis Date ??? AAA (abdominal aortic aneurysm) (H) ??? AAA (abdominal aortic aneurysm) (H) ??? ACP (advance care planning) ??? ACP (advance care planning) ??? Antiplatelet or antithrombotic long-term use eliquis ??? Arrhythmia afib ??? Arthritis neck ??? Atrial tachycardia (H) 04/2017 nonsustained ??? Basal cell carcinoma ??? 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 Cerebral infarction (H) ??? 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 Chronic pain lumbar back ??? CKD (chronic kidney disease) stage 3 ??? COPD (chronic obstructive pulmonary disease) (H) ??? Hyperlipidemia ??? Hypertension ??? Hypertriglyceridemia ??? Hypoxic brain injury (H) ??? MRSA (methicillin resistant staph aureus) culture positive ??? Opioid overdose (H) 04/2017 ??? JACKSON (obstructive sleep apnea) ??? Prediabetes ??? Prediabetes ??? Transient cerebral ischemia ??? Transient cerebral ischemia Past Surgical History: Procedure Laterality Date ??? ANGIOGRAM N/A 09/28/2018 Procedure: BILATERAL FEMORAL CUTDOWN WITH ANGIOGRAM; Surgeon: Juan Lewis MD; Location: [facility] OR ??? APPENDECTOMY ??? BACK SURGERY lumbar fusion x2 ??? BACK SURGERY cervical fusion C7 ??? COLONOSCOPY 2012 polyps ??? ENDOVASCULAR REPAIR ANEURYSM THORACIC AORTIC N/A 11/05/2018 Procedure: THORACIC ENDOVASCULAR ANEURYSM REPAIR WITH MEDTRONIC GRAFT; Surgeon: Juan Lewis MD; Location: [facility] OR ??? ENT SURGERY tonsils ??? EXCISE TOENAIL(S) 09/30/2012 Procedure: EXCISE TOENAIL(S);; Surgeon: Sal Chaparro DPM; Location: [facility] OR ? ? HEAD & NECK SURGERY cervical fusion ??? IR ABDOMINAL ENDOVASCULAR STENT GRAFT 09/28/2018 ??? IR LUMBAR DRAIN PLACEMENT W FLUORO 11/05/2018 ??? IR THORACIC ENDOVASCULAR STENT GRAFT 11/05/2018 ??? ORTHOPEDIC SURGERY left foot surg ??? ORTHOPEDIC SURGERY cervical fusion x2 ??? REMOVE HARDWARE FOOT 09/30/2012 Procedure: REMOVE HARDWARE FOOT; hardware removel left foot; Surgeon: Sal Chaparro DPM; Location: [facility] OR ??? THORACIC SURGERY left lung surg decortifcation ??? VASCULAR SURGERY AAA ??? wisdom teeth[ Family History Problem Relation Age of Onset ??? Abdominal Aortic Aneurysm Father from AAA at age 61 ??? Hypertension Father ??? Breast Cancer Mother ??? Coronary Artery Disease Brother ??? Hypertension Brother ??? Hyperlipidemia Brother ??? Hyperlipidemia Daughter Social History Socioeconomic History ??? Marital status: Spouse name: Not on file ??? Number of children: Not on file ??? Years of education: Not on file ??? Highest education level: Not on file Occupational History ??? Not on file Social Needs ??? Financial resource strain: Not on file ??? Food insecurity: Worry: Not on file Inability: Not on file ??? Transportation needs: Medical: Not on file Non-medical: Not on file Tobacco Use ??? Smoking status: Former Smoker Packs/day: 0.25 Types: Cigarettes Last attempt to quit: 1985 Years since quittin.7 ??? Smokeless tobacco: Never Used ??? Tobacco comment: quit 1985 Substance and Sexual Activity ??? Alcohol use: Yes Comment: 10 per week ??? Drug use: No ??? Sexual activity: Not on file Lifestyle ??? Physical activity: Days per week: Not on file Minutes per session: Not on file ??? Stress: Not on file Relationships ??? Social connections: Talks on phone: Not on file Gets together: Not on file Attends samaritan service: Not on file Active member of club or organization: Not on file Attends meetings of clubs or organizations: Not on file Relationship status: Not on file ??? Intimate partner violence: Fear of current or ex partner: Not on file Emotionally abused: Not on file Physically abused: Not on file Forced sexual activity: Not on file Other Topics Concern ??? Parent/sibling w/ CABG, UT or angioplasty before 65F 55M? Not Asked Social History Narrative ??? Not on file Outpatient Encounter Medications as of 06/02/2019 Medication Sig Dispense Refill ??? acetaminophen (TYLENOL) 500 MG tablet Take 500 mg by mouth 3 times daily as needed for mild pain ??? apixaban ANTICOAGULANT (ELIQUIS) 2.5 MG tablet Take 1 tablet (2.5 mg) by mouth 2 times daily 60 tablet 1 ??? atorvastatin (LIPITOR) 40 MG tablet Take 1 tablet (40 mg) by mouth daily (Patient taking differently: Take 40 mg by mouth every evening ) 30 tablet 0 ??? lisinopril (PRINIVIL/ZESTRIL) 10 MG tablet Take 5 mg by mouth 2 times daily (0.5 x 10 mg = 5 mg dose) ??? metoprolol tartrate (LOPRESSOR) 50 MG tablet Take 50 mg by mouth 2 times daily ??? oxyCODONE (ROXICODONE) 5 MG tablet Take 1 tablet (5 mg) by mouth every 4 hours as needed for moderate to severe pain 20 tablet 0 ??? sodium bicarbonate 650 MG tablet Take 650 mg by mouth At Bedtime ??? terazosin (HYTRIN) 5 MG capsule Take 5 mg by mouth At Bedtime No facility-administered encounter medications on file as of 06/02/2019. Review Of Systems Skin: As above Eyes: negative Ears/Nose/Throat: negative Respiratory: No shortness of breath, dyspnea on exertion, cough, or hemoptysis Cardiovascular: negative Gastrointestinal: negative Genitourinary: negative Musculoskeletal: negative Neurologic: negative Psychiatric: negative Hematologic/Lymphatic/Immunologic: negative Endocrine: negative O: NAD, WDWN, Alert & Oriented, Mood & Affect wnl, Vitals stable Here today alone BP (!) 153/67 Pulse 56 SpO2 98% General appearance normal Vitals stable Alert, oriented and in no acute distress Following lymph nodes palpated: Occipital, Cervical, Supraclavicular no lad R chest 1.3cm pink pearly papule L sideburn 5mm pink pearly papule L neck 4mm pink pearly papule Stuck on papules and brown macules on trunk and ext Red papules on trunk Flesh colored papules on trunk The remainder of the full exam was unremarkable; the following areas were examined: conjunctiva/lids, oral mucosa, neck, peripheral vascular system, abdomen, lymph nodes, digits/nails, eccrine and apocrine glands, scalp/hair, face, neck, chest, abdomen, buttocks, back, RUE, LUE, RLE, LLE Eyes: Conjunctivae/lids:Normal ENT: Lips, buccal mucosa, tongue: normal MSK:Normal Cardiovascular: peripheral edema none Pulm: Breathing Normal Lymph Nodes: No Head and Neck Lymphadenopathy Neuro/Psych: Orientation:Normal; Mood/Affect:Normal MICRO: R chest:Orthokeratosis of epidermis with a proliferation of nests of basaloid cells, with peripheralpalisading and a haphazard arrangement in the center extending into the dermis, forming nodules. Thetumor cells have hyperchromatic nuclei. Poor cytoplasm and intercellular bridging. L sideburn:Orthokeratosis of epidermis with a proliferation of nests of basaloid cells, with peripheral palisading and a haphazard arrangement in the center extending into the dermis, forming nodules. The tumor cells have hyperchromatic nuclei. Poor cytoplasm and intercellular bridging. L neck:Orthokeratosis of epidermis with a proliferation of nests of basaloid cells, with peripheral palisading and a haphazard arrangement in the center extending into the dermis, forming nodules. The tumor cells have hyperchromatic nuclei. Poor cytoplasm and intercellular bridging. A/P: 1. Seborrheic keratosis, lentigo, angioma, dermal nevus, hx of non-melanoma skin cancer 2. R/o basal cell carcinoma TANGENTIAL BIOPSY IN HOUSE: After consent, anesthesia with LEC and prep, tangential excision performed and dx above confirmed with frozen section histology. No complications and routine wound care. Patient told result R chest basal cell carcinoma L sideburn basal cell carcinoma L neck basal cell carcinoma Schedule excision x3 BENIGN LESIONS DISCUSSED WITH PATIENT: I discussed the specifics of tumor, prognosis, and genetics of benign lesions. I explained that treatment of these lesions would be purely cosmetic and not medically neccessary. I discussed with patient different removal options including excision, cautery and /or laser. Nature and genetics of benign skin lesions dicussed with patient. Signs and Symptoms of skin cancer discussed with patient. Patient encouraged to perform monthly skin exams. UV precautions reviewed with patient. Skin care regimen reviewed with patient: Eliminate harsh soaps, i.e. Dial, zest, irsih spring; Mild soaps such as Cetaphil or Dove sensitive skin, avoid hot or cold showers, aggressive use of emollients including vanicream, cetaphil or cerave discussed with patient. Risks of non-melanoma skin cancer discussed with patient Return to clinic 6 months documented in this encounter Nursing Notes Mallory Montgomery RN - 06/02/2019 1:15 PM CDT Initial BP (!) 153/67 Pulse 56 SpO2 98% Estimated body mass index is 31.15 kg/m?? as calculated from the following: Height as of 11/26/18: 1.676 m (5' 6). Weight as of 11/26/18: 87.5 kg (193 lb). . JOSE Lockwood-BSN-N [facility] [phone] documented in this encounter Plan of Treatment Not on filedocumented as of this encounter Procedures Procedure Name Priority Date/Time Associated Diagnosis Comme nts HC TANGENTIAL BIOPSY OF Routine 06/02/2019 2:07 PM CDT H istory of skin cancer SKIN, EA SEPARATE/ADDL Lentigo LESION Seborrheic kerat osis Angioma of skin Dermal nevus Basal cell carcinoma (BCC) of anterior chest Basal cell carcinoma (BCC) of sidebur n area Basal cell carcinoma of neck HC TANGENTIAL BIOPSY OF Routine 06/02/2019 2:07 PM CDT H istory of skin cancer SKIN, FIRST LESION Lentigo Seborrheic kerat osis Angioma of skin Dermal nevus Basal cell carcinoma (BCC) of anterior chest Basal cell carcinoma (BCC) of sidebur n area Basal cell carcinoma of neck ZZCL FROZEN SECTION Routine 06/02/2019 2:07 PM CDT Histo ry of skin cancer FIRST SPEC Lentigo Seborrheic kerat osis Angioma of skin Dermal nevus Basal cell carcinoma (BCC) of anterior chest Basal cell carcinoma (BCC) of sidebur n area Basal cell carcinoma of neck documented in this encounter Visit Diagnoses Diagnosis History of skin cancer - Primary Personal history of other malignant neop lasm of skin Lentigo Other dyschromia Seborrheic keratosis Other seborrheic keratosis Angioma of skin Hemangioma of skin and subcutaneous tiss ue Dermal nevus Benign neoplasm of skin, site unspecifie d Basal cell carcinoma (BCC) of anterior c hest Basal cell carcinoma (BCC) of sideburn a wander Basal cell carcinoma of neck Basal cell carcinoma of scalp and skin o f neck documented in this encounter Additional Health Concerns Infection Onset Date Last Indicated Resolved Time MRSAComment: Positive 02/17/11 and 09/22/12 11/05/2018 019 Negatives 05/03/14 (HE), 12/01/14 (HE) documented as of this encounter Care Teams 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
--- OUTSIDE RECORDS SUMMARY | 2022-05-28 05:02 | XMS_ITS | Encounter Summary ---
:1940 Author Organization [facility] Address [address] [facility] [place] [address] Care Team Providers Name Role Phone [facility], [facility] Primary Care Provider [phone] Reason for Referral Diagnostic Imaging CT Scan (Routine) - Closed Specialty Diagnoses / Procedures Referred By Contact Refer red To Contact Radiology. 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 (H) Butch Brown MD Rh Ct Scan [facility] Procedures CT Chest Abdomen Pelvis w/o Contrast [address] [place] [address] [place] [address] [place] [address] Phone: Fax: Referral ID Status Reason Start Date Expiration Date Visits Requ ested Visits Authorized [id number] Closed 05/17/2019 05/16/2020 1 1 Encounter Details Date Type Department Care Team Description 05/17/2019 Orders Only [facility] Butch Brown Abdominal aortic Vascular Clinic Félix Jay MD aneurysm (AAA) without [address] ru pture (H) (Primary [address] Dx) [place] [address] [place] [address] [phone] Social History Tobacco Use Types Packs/Day Years Used Date Former Smoker Cigarettes 0.25 Quit: 08/28/19 Smokeless Tobacco: Never Used Comments: quit 1984 [...] on filedocumented as of this encounter Results CT Chest Abdomen Pelvis w/o Contrast (11/09/2019 11:25 AM AUTOMOBILE ASSEMBLY SUPERVISOR) Anatomical Region Laterality Modality Abdomen/Pelvis, SUBRAD CT BODY, UMP CT CHEST, UMP CT Computed Tomography ABDOMEN PELVIS, Chest, RAD CT Specimen (Source) Anatomical Location Collection Method / Collectio n Time Received Time / Laterality Volume Impressions 11/09/2019 3:17 PM AUTOMOBILE ASSEMBLY SUPERVISOR IMPRESSION: 1. 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 2. The aneurysm sac in the distal thorac ic aorta and an infrarenal abdominal aortic aneurysm have increased slightly in size since the previous exam. 3. Moderate age-indeterminate anterior c ompression of the T7 vertebral body is new since the previous exam. JON NICHOLS MD Narrative 11/09/2019 3:17 PM AUTOMOBILE ASSEMBLY SUPERVISOR CT CHEST, ABDOMEN AND PELVIS WITHOUT CONTRAST ?? 11/09/2019 11:25 AM HISTORY: Follow-up for aortic aneurysm. TECHNIQUE: Volumetric helical sections w ere acquired from the thoracic inlet to the ischial tuberosities withou t IV contrast. Coronal images were also reconstructed. Radiation dose for this scan was reduced using automated exposure control, adjust ment of the mA and/or kV according to patient size, or iterative reconstruction technique. COMPARISON: CT angiogram performed 2018. FINDINGS: ?? Chest: Thoracic aortic endograft extendi ng from the mid aortic arch into the distal thoracic aorta is unchan ged. The aneurysm sac in the mid descending thoracic aorta (series 3 image 92) has increased slightly in size, measuring 5.2 cm in di ameter (previously by my measurement 4.8 cm). Atherosclerotic hannah cification of the thoracic aorta and coronary arteries is again not ed. No pleural or pericardial effusions. No enlarged lymph nodes are i dentified in the chest. Postoperative changes are noted in the l ingula laterally. A few tiny noncalcified pulmonary nodules in both l ungs are unchanged, with the largest in the right middle lobe anterio rly (series 5 image 190) measuring 0.3 cm. These are unchanged fo r greater than one year, and are therefore highly likely to be of bobby ign etiology. Few small calcified granulomas are again noted henny aterally. Mild biapical scarring is again noted. Small hiatal he rnia. Abdomen and Pelvis: Infrarenal abdominal aortic aneurysm has increased slightly in size, measuring up to 5 cm A P x 4.8 cm transverse (previously by my measurement 4.8 cm AP x 4.5 cm transverse). There is advanced atherosclerotic aortoiliac calc ification. Ectasia of the right common iliac artery is unchanged, measuring 2.1 cm. No bowel obstruction. Colonic diverticul osis, without convincing evidence for diverticulitis. The appendi x is not seen, and is surgically absent by history. No free fl uid in the pelvis. Small fat-containing paraumbilical hernia. Exo phytic 1.9 cm cyst in the interpolar region of the left kidney pos teriorly is unchanged. The liver, gallbladder, spleen, adrenal glan ds, pancreas, and kidneys have otherwise unremarkable noncontrast appea rances. Degenerative changes are noted throughou t the thoracolumbar spine. Postoperative changes of fusion are note d involving L2-S1. Thoracolumbar curve, convex left. Modera te age-indeterminate anterior compression of the T7 vertebral body is new since the previous exam. Procedure Note Jon Nichols MD - 11/09/2019Forma tting of this note might be different from the original. CT CHEST, ABDOMEN AND PELVIS WITHOUT CON TRAST 11/09/2019 11:25 AM HISTORY: Follow-up for aortic aneurysm. TECHNIQUE: Volumetric helical sections w ere acquired from the thoracic inlet to the ischial tuberosities withou t IV contrast. Coronal images were also reconstructed. Radiation dose for this scan was reduced using automated exposure control, adjust ment of the mA and/or kV according to patient size, or iterative reconstruction technique. COMPARISON: CT angiogram performed 2018. FINDINGS: Chest: Thoracic aortic endograft extendi ng from the mid aortic arch into the distal thoracic aorta is unchan ged. The aneurysm sac in the mid descending thoracic aorta (series 3 image 92) has increased slightly in size, measuring 5.2 cm in di ameter (previously by my measurement 4.8 cm). Atherosclerotic hannah cification of the thoracic aorta and coronary arteries is again not ed. No pleural or pericardial effusions. No enlarged lymph nodes are i dentified in the chest. Postoperative changes are noted in the l ingula laterally. A few tiny noncalcified pulmonary nodules in both l ungs are unchanged, with the largest in the right middle lobe anterio rly (series 5 image 190) measuring 0.3 cm. These are unchanged fo r greater than one year, and are therefore highly likely to be of bobby ign etiology. Few small calcified granulomas are again noted henny aterally. Mild biapical scarring is again noted. Small hiatal he rnia. Abdomen and Pelvis: Infrarenal abdominal aortic aneurysm has increased slightly in size, measuring up to 5 cm A P x 4.8 cm transverse (previously by my measurement 4.8 cm AP x 4.5 cm transverse). There is advanced atherosclerotic aortoiliac calc ification. Ectasia of the right common iliac artery is unchanged, measuring 2.1 cm. No bowel obstruction. Colonic diverticul osis, without convincing evidence for diverticulitis. The appendi x is not seen, and is surgically absent by history. No free fl uid in the pelvis. Small fat-containing paraumbilical hernia. Exo phytic 1.9 cm cyst in the interpolar region of the left kidney pos teriorly is unchanged. The liver, gallbladder, spleen, adrenal glan ds, pancreas, and kidneys have otherwise unremarkable noncontrast appea rances. Degenerative changes are noted throughou t the thoracolumbar spine. Postoperative changes of fusion are note d involving L2-S1. Thoracolumbar curve, convex left. Modera te age-indeterminate anterior compression of the T7 vertebral body is new since the previous exam. IMPRESSION: 1. 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 2. The aneurysm sac in the distal thorac ic aorta and an infrarenal abdominal aortic aneurysm have increased slightly in size since the previous exam. 3. Moderate age-indeterminate anterior c ompression of the T7 vertebral body is new since the previous exam. JON NICHOLS MD Butch Brown MD IMG CT ORDERABLES documented in this encounter Visit Diagnoses Diagnosis Abdominal aortic aneurysm (AAA) without rupture (H) - Primary Abdominal aortic aneurysm (AAA) without rupture (H) documented in this encounter Additional Health Concerns Infection Onset Date Last Indicated Resolved Time MRSAComment: Positive 02/17/11 and 09/22/12 11/05/2018 019 Negatives 05/03/14 (HE), 12/01/14 (HE) documented as of this encounter Care Teams Motorcycle Racer Relationship Specialty Start Date End Date [facility], [facility] PCP - General 05/12/[address] [place] [phone] documented as of this encounter
--- OUTSIDE RECORDS SUMMARY | 2022-05-28 05:02 | XMS_ITS | Encounter Summary ---
:1940 Author Organization [place] Address [facility] 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 Gisela Garcia MD Abdominal aortic aneurysm (AAA) without rupture (H) [address] [place] [address] [address] [place] [address] [phone] Social History Tobacco Use Types Packs/Day Years [...] / COVID-19? documented as of this encounter Medications at Time of Discharge Medication Sig Dispensed Refills Start Date End Date atorvastatin (LIPITOR) 40 Take 1 tablet (40 30 tablet 0 MG tabletIndications: mg) by mouth daily Hyperlipidemia LDL goal <70, Acute left-sided low back pain without sciatica acetaminophen (TYLENOL) 500 Take 500 mg by mouth 0 MG tablet 3 times daily as needed for mild pain apixaban ANTICOAGULANT Take 1 tablet (2.5 60 tablet 1 11/15 (ELIQUIS) 2.5 MG mg) by mouth 2 times tabletIndications: daily Transient cerebral ischemia, unspecified type lisinopril Take 5 mg by mouth 2 0 (PRINIVIL/ZESTRIL) 10 MG times daily (0.5 x tablet 10 mg = 5 mg dose) metoprolol tartrate Take 50 mg by mouth 0 (LOPRESSOR) 50 MG tablet 2 times daily oxyCODONE (ROXICODONE) 5 MG Take 1 tablet (5 mg) 20 tablet 0 11/09/2018 tabletIndications: Thoracic by mouth every 4 aortic aneurysm without hours as needed for rupture (H) moderate to severe pain sodium bicarbonate 650 MG Take 650 mg by mouth 0 tablet At Bedtime terazosin (HYTRIN) 5 MG Take 5 mg by mouth 0 capsule At Bedtime documented as of this encounter Plan of Treatment Not on filedocumented as of this encounter Procedures Procedure Name Priority Date/Time Associated Comments Diagnosis CT CHEST ABDOMEN Routine 08/08/2021 4:29 PM Thoracic aortic Re sults for this PELVIS W/O CONTRAST CDT aneurysm without proc edure are in rupture (H) the results Abdominal aortic section. aneurysm (AAA) without rupture (H) ISTAT CREATININE Routine 08/08/2021 4:13 PM Resul ts for this POCT CDT procedure are i n the results section. documented in this encounter Results CT Chest Abdomen Pelvis w/o Contrast (08/08/2021 4:29 PM CDT) Anatomical Region Laterality Modality Abdomen/Pelvis, SUBRAD CT BODY, UMP CT CHEST, UMP CT Computed Tomography ABDOMEN PELVIS, Chest, RAD CT Specimen (Source) Anatomical Collection Method Collection Time Re ceived Time Location / / Volume Laterality 08/08/2021 4:20 PM CDT Impressions 08/09/2021 8:29 AM CDT IMPRESSION: 1. ??Changes of endovascular thoracic ao rtic aneurysm repair. The aneurysm sac at the distal aspect of the stent measures 5.7 cm, previously 5.2 cm. Although endoleak can not be evaluated for without the use of contrast underlying endoleak cannot be excluded. 2. ??Aneurysmal dilatation of the infrar enal abdominal aorta measuring 5.0 x 5.0 cm, previously 4.6 x 4.8 cm. NOE ONEILL DO Narrative 08/09/2021 8:29 AM CDT EXAM: CT CHEST ABDOMEN PELVIS W/O CONTRAST LOCATION: [facility] DATE/TIME: 08/08/2021 4:20 PM INDICATION: history of thoracoabdominal aortic aneurysm; TEVAR 11/05/18 COMPARISON: 11/09/2019, 11/26/2018 TECHNIQUE: CT scan of the chest, abdomen , and pelvis was performed without IV contrast. Multiplanar reforma ts were obtained. Dose reduction techniques were used. CONTRAST: None. FINDINGS: Vasculature: Exam is limited without the use of intravenous contrast. No dilatation of the ascending thoracic aorta. Changes of thoracic endovascular repair. Interval increased size of aneurysm around the distal aspect of the stent graft measuri ng 5.7 cm, previously 5.2 cm, underlying endoleak cannot be excluded. Aneurysmal dilatation of the infrarenal abdominal aorta measuring 5.0 x 5.0 cm, previously 4.6 x 4.8 cm. LUNGS AND PLEURA: No pleural effusion or pneumothorax. Postoperative changes are noted in the lingula. Small noncalcified pulmonary nodules in both lungs measuring up to 3 mm are n ot significantly changed. MEDIASTINUM/AXILLAE: No pericardial effu mickey or pneumothorax. CORONARY ARTERY CALCIFICATION: Severe. HEPATOBILIARY: Mild hyperdense material noted within the gallbladder lumen, likely sludge. PANCREAS: Normal. SPLEEN: Normal. ADRENAL GLANDS: Normal. KIDNEYS/BLADDER: Bilateral renal hypoden sities are unchanged. BOWEL: Normal. LYMPH NODES: Normal. PELVIC ORGANS: Normal. MUSCULOSKELETAL: Spinal hardware noted f rom L2 through L5. Compression deformity of the T7 vertebral body uncha nged. Procedure Note Noe Oneill, DO - 2020 EXAM: CT CHEST ABDOMEN PELVIS W/O CONTRA ST LOCATION: [facility] DATE/TIME: 08/08/2021 4:20 PM INDICATION: history of thoracoabdominal aortic aneurysm; TEVAR 11/05/18 COMPARISON: 11/09/2019, 11/26/2018 TECHNIQUE: CT scan of the chest, abdomen , and pelvis was performed without IV contrast. Multiplanar reforma ts were obtained. Dose reduction techniques were used. CONTRAST: None. FINDINGS: Vasculature: Exam is limited without the use of intravenous contrast. No dilatation of the ascending thoracic aorta. Changes of thoracic endovascular repair. Interval increased size of aneurysm around the distal aspect of the stent graft measuri ng 5.7 cm, previously 5.2 cm, underlying endoleak cannot be excluded. Aneurysmal dilatation of the infrarenal abdominal aorta measuring 5.0 x 5.0 cm, previously 4.6 x 4.8 cm. LUNGS AND PLEURA: No pleural effusion or pneumothorax. Postoperative changes are noted in the lingula. Small noncalcified pulmonary nodules in both lungs measuring up to 3 mm are n ot significantly changed. MEDIASTINUM/AXILLAE: No pericardial effu mickey or pneumothorax. CORONARY ARTERY CALCIFICATION: Severe. HEPATOBILIARY: Mild hyperdense material noted within the gallbladder lumen, likely sludge. PANCREAS: Normal. SPLEEN: Normal. ADRENAL GLANDS: Normal. KIDNEYS/BLADDER: Bilateral renal hypoden sities are unchanged. BOWEL: Normal. LYMPH NODES: Normal. PELVIC ORGANS: Normal. MUSCULOSKELETAL: Spinal hardware noted f rom L2 through L5. Compression deformity of the T7 vertebral body uncha nged. IMPRESSION: 1. Changes of endovascular thoracic aort ic aneurysm repair. The aneurysm sac at the distal aspect of the stent measures 5.7 cm, previously 5.2 cm. Although endoleak can not be evaluated for without the use of contrast underlying endoleak cannot be excluded. 2. Aneurysmal dilatation of the infraren al abdominal aorta measuring 5.0 x 5.0 cm, previously 4.6 x 4.8 cm. NOE ONEILL DO Raimro Loco MD IMG CT ORDERABLES (ABNORMAL) Creatinine POCT (08/08/2021 4:13 PM CDT) Analysis Performed At Patho logist Time Signature Creatinine POCT 2.2 (H) 0.7 - 1.3 08/08/2021 LABORATORY mg/dL 4:17 PM CDT POC GFR, ESTIMATED 28 (L) >60 08/08/2021 LABORATORY POCT mL/min/1.7 4:17 PM CDT POC 3m2 Specimen Anatomical Collection Method Collection Time Receive d Time (Source) Location / / Volume Laterality Blood BLOOD SPECIMEN / 08/08/2021 4:13 PM 08/08 4:17 Unknown CDT PM CDT Ramiro Loco MD LAB - BEAKER POCT Performing Organization Address City/State/ZIP Code Phon [place] [id number] Care Lab [address] floor, Room [address]B documented in this encounter Visit Diagnoses Diagnosis Thoracic aortic aneurysm without rupture (H) Thoracic aneurysm without mention of rup ture Abdominal aortic aneurysm (AAA) without rupture (H) documented in this encounter Additional Health Concerns Infection Onset Date Last Indicated Resolved Time MRSAComment: Positive 02/17/11 and 09/22/12 11/05/2018 019 Negatives 05/03/14 (HE), 12/01/14 (HE) documented as of this encounter Care Teams Plant Safety Leader Relationship Specialty Start Date End Date Kehinde Portillofield PCP - General 05/12/[address] [place] [id number] documented as of this encounter
--- OUTSIDE RECORDS SUMMARY | 2022-05-28 05:02 | XMS_ITS | Encounter Summary ---
:1940 Author Organization [place] Address [address] [facility] [place] [address] Care Team Providers Name Role Phone Clinic, [facility] Primary Care Provider [phone] Reason for Visit Reason Comments RECHECK *PREV Dr Lewis, Dr Brown & Dr Loco Pt - CTA done 08/08/21- History of thoracoabdominal aortic aneu rysm; TEVAR 11/05/18; 6 mo f/u to 11/09/[address] Loco *jj Pt is sti ll having back pain *LMB 08/19/21 - R/S from 08/29/21 *B 08/28/21 Encounter Details Date Type Department Care Team Description 09/23/2021 Office Visit [facility] Gallito Gonzalez Thoracoa bdominal aortic Vascular Clinic MD Eliel aneurysm (TAAA) without [place] [address] rupture (H) (Primary Dx) [address] [place] [address] [place] [address] Social History Tobacco Use Types Packs/Day Years [...] with No / Unsure 09/23/2021 10:26 AM MESS ATTENDANT CREW someone who was confirmed or suspected to have Coronavirus / COVID-19? documented as of this encounter Last Filed Vital Signs Vital Sign Reading Time Taken Comments Blood Pressure 161/78 09/23/2021 10:34 AM MESS ATTENDANT CREW Pulse 57 09/23/2021 10:34 AM MESS ATTENDANT CREW Temperature - - Respiratory Rate 16 09/23/2021 10:34 AM MESS ATTENDANT CREW Oxygen Saturation 99% 09/23/2021 10:34 AM MESS ATTENDANT CREW Inhaled Oxygen Concentration - - Weight 79.4 kg (175 lb) 09/23/2021 10:34 AM MESS ATTENDANT CREW Height 167.6 cm (5' 6) 09/23/2021 10:34 AM MESS ATTENDANT CREW Body Mass Index 28.25 09/23/2021 10:34 AM MESS ATTENDANT CREW documented in this encounter Progress Notes Von Landeros CMA - 09/23/2021 10:30 AM CST [facility] V[facility] Clinic Patient is here for a consult to discuss Abdominal aortic aneurysm (AAA). TEVAR. BP (!) 161/78 (BP Location: Right arm, Patient Position: Chair, Cuff Size: Adult Regular) Pulse 57 Resp 16 Ht 5' 6 (1.676 m) Wt 175 lb (79.4 kg) SpO2 99% BMI 28.25 kg/m?? The provider has been notified that the patient has no concerns. Questions patient would like addressed today are: N/A. Refills are needed: No Has homecare services and agency name: No Von Landeros CMA ATTENDANT CREW Gallito Gonzalez MD - 09/23/2021 10:30 AM CST Mr. Hendricks is a 81-year-old male who is well-known to the vascular 30[facility] with and as such has been previously seen by Stephanie Macdonald and Claudy. 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 Initially he was found to have an infrarenal abdominal aortic aneurysm and further work-up showed that he also had a descending thoracic aortic aneurysm. In October 2018 he underwent endovascular repair with 2 aortic stent graft. At that time there was good apposition proximally and distally at the aneurysm was sealed. Subsequent to that there was growth noted in his paravesical and infrarenal abdominal aortic component and therefore the patient was seen by Dr. Loco who referred him to Dr. Orosco. Due to its size surgical treatment was not undertaken. This fall he had started having some back pain and patient wanted a CT scan. CT scan was done without contrast due to his renal insufficiency. It shows that there is progressive enlargement of the supraclavicular and descending thoracic segment and it now measures 5.7 cm. At the level of the celiac axis measures 37 mm. The infrarenal component has increased to 5 cm. The lower end of the thoracic stent graft was from the aortic wall due to the continued enlargement. 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 I explained the pathophysiology to them in detail. It should also be noted that his brother also hasa thoracoabdominal aneurysm. I will discuss with Dr. Orosco what would be the best approach moving forward. I explained why I just do not want to do a distal extension of the thoracic stent graft to the celiac axis due to risk of paraplegia as well as creating any technical issues with any future plans of fenestrated endovascular stent grafting. I will get in touch with the patient's daughter after I discussed the case with Dr. Orosco. ATTENDANT CREW documented in this encounter Plan of Treatment Not on filedocumented as of this encounter Visit Diagnoses Diagnosis Thoracoabdominal aortic aneurysm (TAAA) without rupture (H) - Primary documented in this encounter Additional Health Concerns Infection Onset Date Last Indicated Resolved Time MRSAComment: Positive 02/17/11 and 09/22/12 11/05/2018 019 Negatives 05/03/14 (HE), 12/01/14 (HE) documented as of this encounter Care Teams Plate Colorer Relationship Specialty Start Date End Date [facility], [facility] PCP - General 05/12/17 [address] [place] [address] documented as of this encounter
--- OUTSIDE RECORDS SUMMARY | 2022-05-28 05:02 | XMS_ITS | Encounter Summary ---
:1940 Author Organization [place] Address [address] [place] [address]. [place] [address] Care Team Providers Name Role Phone Clinic, [facility] Primary Care Provider [phone] Reason for Visit Reason Onset Date Comments Appointment 05/28/2020 Encounter Details Date Type Department Care Team Description 05/28/2020 Telephone [facility] Vascular Ramiro Loco MD Appointment Clinic [place] [address] [place] [address] [place] [address] [phone] Social History Tobacco Use Types Packs/Day Years [...] this encounter Miscellaneous Notes Telephone Encounter - Carolyn Jerome - 05/28/2020 2:58 PM CDT May 28, 2020 Mailed recall letters to patient on 04/26/2020 and 05/28/2020 reminding patient to call [facility] & schedule an appointment per follow-up orders by Dr. Loco. These orders were expected to be completed by April,. No further attempts will be made to contact patient for scheduling per these follow-up orders. Carolyn Jerome Dairy Feed Sales Consultant [facility] Office: [phone] documented in this encounter Plan of Treatment Not on filedocumented as of this encounter Visit Diagnoses Not on filedocumented in this encounter Additional Health Concerns Infection Onset Date Last Indicated Resolved Time MRSAComment: Positive 02/17/11 and 09/22/12 11/05/2018 019 Negatives 05/03/14 (HE), 12/01/14 (HE) documented as of this encounter Care Teams Plating And Point Assembly Supervisor Relationship Specialty Start Date End Date [facility] P[facility] - General 05/12/[address] [place] [address] documented as of this encounter
--- OUTSIDE RECORDS SUMMARY | 2022-05-28 05:02 | XMS_ITS | Encounter Summary ---
:1940 Author Organization [facility] Address [address] [place] [address] Care Team Providers Name Role Phone Unavailable Primary Care Provider Unavailable Encounter Details Date Type Department Care Team Description 04/16/2022 Office Communication [facility] [place] MD [address] [place] [address] Social History Tobacco Use Types Packs/Day Years Used Date Smoking Tobacco: Never Assessed Sex Assigned at Date Recorded Not on file documented as of this encounter Miscellaneous Notes Telephone Encounter - Brandy Murrell - 04/16/2022 1:39 PM CDT Chart created per request from Dr. Holly. documented in this encounter Plan of Treatment Not on filedocumented as of this encounter Visit Diagnoses Not on filedocumented in this encounter
--- OUTSIDE RECORDS SUMMARY | 2022-05-28 05:02 | XMS_ITS | Encounter Summary ---
:1940 Author Organization [place] Address [facility] [place] [address] Care Team Providers Name Role Phone Clinic, [facility] Primary Care Provider [phone] Reason for Referral Diagnostic Imaging CT Scan (Routine) - Closed Specialty Diagnoses / Procedures Referred By Contact Refer red To Contact Radiology. 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 (H) Butch Brown MD Ct Scan [facility] Procedures CT Chest Abdomen Pelvis w/o Contrast [address] [place] [address] [place] [address] [address] Phone: Fax: Referral ID Status Reason Start Date Expiration Date Visits Requ ested Visits Authorized [id number] Closed 05/17/2019 05/16/2020 1 1 ILATION WORKER Reason for Visit Diagnostic Imaging CT Scan (Routine) - Closed Specialty Diagnoses / Procedures Referred By Contact Refer red To Contact Radiology. 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 (H) Butch Brown MD Ct Scan Rs Procedures CT Chest Abdomen Pelvis w/o Contrast [address] [place] [address] [place] [address] [address] Phone: Fax: Referral ID Status Reason Start Date Expiration Date Visits Requ ested Visits Authorized [id number] Closed 05/17/2019 05/16/2020 1 1 Encounter Details Date Type Department Care Team Description 11/09/2019 Hospital Encounter [facility] Butch Brown aortic [facility] MD [place] aneurysm (AAA) [address] with out rupture (H) [address] [place] [address] Social History Tobacco Use Types Packs/Day Years [...] on file documented as of this encounter Medications at [...] Name Priority Date/Time Associated Diagnosis Comme nts CT CHEST ABDOMEN Routine 11/09/2019 11:25 AM Abdominal aortic Results for this PELVIS W/O CONTRAST VENTILATION WORKER aneurysm (AAA) proced ure are in without rupture (H) the resu lts section. documented in this encounter Results CT Chest Abdomen Pelvis w/o Contrast (11/09/2019 11:25 AM VENTILATION WORKER) Anatomical Region Laterality Modality Abdomen/Pelvis, SUBRAD CT BODY, UMP CT CHEST, UMP CT Computed Tomography ABDOMEN PELVIS, Chest, RAD CT Specimen (Source) Anatomical Location Collection Method / Collectio n Time Received Time / Laterality Volume Impressions 11/09/2019 3:17 PM VENTILATION WORKER IMPRESSION: 1. 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 2. The aneurysm sac in the distal thorac ic aorta and an infrarenal abdominal aortic aneurysm have increased slightly in size since the previous exam. 3. Moderate age-indeterminate anterior c ompression of the T7 vertebral body is new since the previous exam. JON NICHOLS MD Narrative 11/09/2019 3:[address] CHEST, ABDOMEN AND PELVIS WITHOUT CONTRAST [...] documented as of this encounter Care Teams Telecommunications Field Engineer Relationship Specialty Start Date End Date [facility], [facility] PCP - General 05/12/[address] [place], [place] [id number] documented as of this encounter
--- OUTSIDE RECORDS SUMMARY | 2022-05-28 05:02 | XMS_ITS | Encounter Summary ---
:1940 Author Organization [place] Address [facility] [place] [address] Care Team Providers Name Role Phone Clinic, [facility] Primary Care Provider Gallito Gonzalez MD Unavailable Encounter Details Date Type Department Care Team Description 11/04/2021 Telephone [facility] Vascular Gallito Gonzalez, Clinic Tr[facility] [address] [place] [address] [place] [address] [phone] (Wo rk) Social History Tobacco Use Types [...] this encounter Miscellaneous Notes Telephone Encounter - Ro Taylor RN - 02/11/2022 2:34 PM CDT Routing to Dr. Gonzalez to have a closed loop on pt plan and ensure pts daughter has been notified. JAMES 09/23/21. Update: Pt was referred back to Dr. Orosco per Dr. Gonzalez and pt notified. SHASTA Sotomayor, [facility] Office: [phone] Telephone Encounter - Ro Taylor RN - 11/26/2021 1:[address] Gonzalez, Dr. Orosco was notified. Awaiting further direction from Dr. Gonzalez upon their discussion and to ensure pts daughter is notified. SHASTA Sotomayor, [facility] Office: [phone] ING UNIT CLERK Telephone Encounter - Ro Taylor RN - 11/04/2021 4:56 PM CST JAMES 09/23/[address] Gonzalez I will get in touch with the patient's daughter after I discussed the case with Dr. Orosco Routing to Dr. Gonzalez for update on this/plan and verification of pts daughter contacted. SHASTA Sotomayor, [facility] Office: [phone] ING UNIT CLERK documented in this encounter Plan of Treatment Not on filedocumented as of this encounter Visit Diagnoses Not on filedocumented in this encounter Additional Health Concerns Infection Onset Date Last Indicated Resolved Time MRSAComment: Positive 02/17/11 and 09/22/12 11/05/2018 019 Negatives 05/03/14 (HE), 12/01/14 (HE) documented as of this encounter Care Teams Beef Lugger Relationship Specialty Start Date End Date Clinic, [facility] PCP - General 05/12/17 [address] [place] [address] Gallito Gonzalez MD Assigned Heart and Vascular 09/29/21 [address] Provider [place] [address] documented as of this encounter
--- OUTSIDE RECORDS SUMMARY | 2022-05-28 05:02 | XMS_ITS | Encounter Summary ---
:1940 Author Organization [facility] Address [address] [place] [address] Care Team Providers Name Role Phone Unavailable Primary Care Provider Unavailable Encounter Details Date Type Department Care Team Description 05/02/2022 Orders Only [facility] Denilson Quinones MD [address] [place] [address] [place], [place] [phone] (Wo rk) Social History Tobacco Use Types Packs/Day Years Used Date Smoking Tobacco: Never Assessed Sex Assigned at Date Recorded Not on file documented as of this encounter Plan of Treatment Not on filedocumented as of this encounter Procedures Procedure Name Priority Date/Time Associated Diagnosis Comme nts GFR (HC) Routine 05/02/2022 Results for thi s procedure are in the resu lts section. HEMATOLOGY Routine 05/02/2022 Results for thi s procedure are in the resu lts section. CHEMISTRY Routine 05/02/2022 Results for thi s procedure are in the resu lts section. documented in this encounter Results (ABNORMAL) HEMATOLOGY (05/02/2022) Analysis Performed At Patho logist Time Signature Hemoglobin 10.3 (L) 14.0 - [facility] 18.0 g/dL [facility] Hemoglobin x 3 30.9 (L) 42.0 - [facility] 54.0 % [facility] Specimen (Source) Anatomical Collection Method Collection Time Re ceived Time Location / / Volume Laterality 05/02/2022 05/03/2022 12:1 4 PM CDT Narrative [facility] - 05/03/2022 Unless otherwise specified, test(s) performed at: [facility], [address] [place] [address] [facility] [place] [address] ENTRY LEVEL JAVA DEVELOPER: Raheem Malik M.D., Ph.D For any questions, please call customer service at FREQUENCY:OTHER Resulting Agency Comment Specimen source: Blood Denilson Holly MD LAB BLOOD ORDERABLES Performing Organization Address City/State/ZIP Code Phon e Number [facility] (ABNORMAL) [facility] Chemistry (05/02/2022) P athologist Signature BUN 76 (H) 6 - 19 [facility] mg/dL [facility] Creatinine 2.48 (H) 0.60 - 1.30 [facility] mg/dL [facility] Comment: Custom Exception BUN/Creatinine Ratio 30.6 (H) 10.0 - 20.0 [facility] Sodium 143 136 - 145 mEq/L [facility] Potassium 4.2 3.5 - 5.1 mEq/L [facility] Chloride 107 96 - 108 mEq/L [facility] Bicarbonate (CO2) 26 20 - 31 mEq/L [facility] Comment: Please note change in reference range. Calcium 9.1 8.7 - 10.4 mg/dL [facility] Comment: Please note change in reference range. Glucose 95 70 - 100 mg/dL [facility] Specimen (Source) Anatomical Collection Method Collection Time Re ceived Time Location / / Volume Laterality 05/02/2022 05/03/2022 9:04 AM CDT Resulting Agency Comment Specimen source: Serum Denilson Holly MD LAB BLOOD ORDERABLES Performing Organization Address City/[facility]/ZIP Code Phon e Number [facility] GFR (05/02/2022) P athologist Signature eGFR CKD-EPI CR 26 mL/min [facility] 2020 [facility] Comment: [facility] has implemented the recommended eGFR calculation that [...] ceived Time Location / / Volume Laterality 05/02/2022 05/03/2022 9:04 AM CDT Narrative [facility] - 05/03/2022 Unless otherwise specified, test(s) performed at: [facility], [address] [place] [address] [facility]ideon [place] [address] ENTRY LEVEL JAVA DEVELOPER: Raheem Malik M.D., Ph.D For any questions, please call customer service at FREQUENCY:OTHER Resulting Agency Comment Specimen source: Serum Denilson Holly MD LAB [id number] NSOLICITED RESULTS Performing Organization Address City/State/ZIP Code Phon e Number [facility] documented in this encounter Visit Diagnoses Not on filedocumented in this encounter
--- OUTSIDE RECORDS SUMMARY | 2022-05-28 05:02 | XMS_ITS | Encounter Summary ---
:1940 Author Organization [place] Address [address] [facility] [place] [address] Care Team Providers Name Role Phone Clinic, [facility] Primary Care Provider [phone] Reason for Visit Diagnostic Imaging CT Scan (Routine) - Closed Specialty Diagnoses / Procedures Referred By Contact Refer red To Contact Radiology. Diagnoses Thoracic aortic aneurysm (H) Butch Brown MD Ct Scan Procedures CT Chest Abdomen Pelvis w/o Contrast CTA Chest Abdomen Pelvis w Contrast [address] [place] [address] [place] [address] [place] [address] Referral ID Status Reason Start Date Expiration Date Visits Requ ested Visits Authorized [id number] Closed 11/26/2018 11/26/2019 1 1 Encounter Details Date Type Department Care Team Description 05/17/2019 Hospital Encounter [facility] [place] aneurysm (H) [address] [place] [phone] [address] [place] [id number] Social History Tobacco Use Types Packs/Day Years [...] Associated Comments Diagnosis CT CHEST ABDOMEN Routine 05/17/2019 10:51 AM Thoracic aortic R esults for this PELVIS W/O CONTRAST CDT aneurysm (H) procedur e are in the results section. ISTAT CREATININE Routine 05/17/2019 10:21 AM Thoracic aortic R esults for this POCT CDT aneurysm (H) procedure are i n the results section. documented in this encounter Results CT Chest Abdomen Pelvis w/o Contrast (05/17/2019 10:51 AM CDT) Anatomical Region Laterality Modality Abdomen/Pelvis, SUBRAD CT BODY, UMP CT CHEST, UMP CT Computed Tomography ABDOMEN PELVIS, Chest, RAD CT Specimen (Source) Anatomical Location Collection Method / Collectio n Time Received Time / Laterality Volume Impressions 05/19/2019 10:08 PM CDT IMPRESSION: 1. No significant change in multiple are as of aneurysmal dilatation in the descending thoracic aorta and abdomi nal aortic aneurysm. Redemonstrated thoracic and upper abdomi nal aorta endograft. 2. No acute appearing pulmonary disease. 3. No acute appearing abnormality in the abdomen or pelvis. 4. Resolution of previous left inguinal fluid collection. There are a few mildly enlarged left inguinal lymph nodes. MARISOL MEYER MD Narrative 05/19/2019 10:[address] CHEST, ABDOMEN, PELVIS WITHOUT CONTRAST ??05/17/2019 10:51 AM HISTORY: ??Thoracic aortic aneurysm (TAA ), known, follow up. History of thoracic aortic aneurysm without rupture . Thoracic aortic aneurysm (H). TECHNIQUE: CT scan obtained of the chest , abdomen, and pelvis without IV contrast. Radiation dose for this sca n was reduced using automated exposure control, adjustment of the mA a nd/or kV according to patient size, or iterative reconstruction techni que. COMPARISON: ??11/26/2018 CTA chest, abdome n and pelvis. FINDINGS: Aorta: Redemonstrated thoracic aortic en dograft extending into the proximal abdominal aorta and originating in aortic arch just beyond left subclavian artery. The descending t horacic aneurysm at the level of the right pulmonary artery is not sig nificantly changed, 4.7 cm previously 4.8 cm. The distal descending aortic aneurysm is stable at 5.2 cm on series 3 image 40. The infrarenal abdominal aorti c aneurysm series 3 image 71 is 4.6 x 4.7 cm, previously 4.6 x 4.6 cm without significant interval change. Ectatic 2.1 cm right common porsche c artery. Chest: Mildly heterogeneous thyroid. Pro minent coronary artery calcifications. No mediastinal, hilar or axillary adenopathy. No pleural fluid. Curvilinear lateral left apical density consistent with calcification or postoperative change. R edemonstrated bilateral linear densities consistent with fibrosis or sc arring. No acute appearing pulmonary disease. Abdomen/pelvis: Tiny gallstone. Within t he limits of a noncontrast exam the liver, spleen, pancreas, adrena l glands appear normal. Areas of renal cortical thinning suggests scar ring and posterior medial exophytic probable cyst off the mid left kidney unchanged. No periaortic or iliac adenopathy. A few mi ldly prominent left inguinal nodes. Resolution of the previous fluid collection in the left inguinal region consistent with resolved seroma. No free fluid. Mild uncomplicated divert iculosis sigmoid and distal descending colon. No acute appearing bow el abnormality. Postop change and prominent degenerative change in the lumbar spine. Procedure Note Marisol Meyer MD - 05/19/2019For matting of this note might be different from the original. CT CHEST, ABDOMEN, PELVIS WITHOUT CONTRA ST 05/17/2019 10:51 AM HISTORY: Thoracic aortic aneurysm (TAA), known, follow up. History of thoracic aortic aneurysm without rupture . Thoracic aortic aneurysm (H). TECHNIQUE: CT scan obtained of the chest , abdomen, and pelvis without IV contrast. Radiation dose for this sca n was reduced using automated exposure control, adjustment of the mA a nd/or kV according to patient size, or iterative reconstruction techni que. COMPARISON: 11/26/2018 CTA chest, abdomen and pelvis. FINDINGS: Aorta: Redemonstrated thoracic aortic en dograft extending into the proximal abdominal aorta and originating in aortic arch just beyond left subclavian artery. The descending t horacic aneurysm at the level of the right pulmonary artery is not sig nificantly changed, 4.7 cm previously 4.8 cm. The distal descending aortic aneurysm is stable at 5.2 cm on series 3 image 40. The infrarenal abdominal aorti c aneurysm series 3 image 71 is 4.6 x 4.7 cm, previously 4.6 x 4.6 cm without significant interval change. Ectatic 2.1 cm right common porsche c artery. Chest: Mildly heterogeneous thyroid. Pro minent coronary artery calcifications. No mediastinal, hilar or axillary adenopathy. No pleural fluid. Curvilinear lateral left apical density consistent with calcification or postoperative change. R edemonstrated bilateral linear densities consistent with fibrosis or sc arring. No acute appearing pulmonary disease. Abdomen/pelvis: Tiny gallstone. Within t he limits of a noncontrast exam the liver, spleen, pancreas, adrena l glands appear normal. Areas of renal cortical thinning suggests scar ring and posterior medial exophytic probable cyst off the mid left kidney unchanged. No periaortic or iliac adenopathy. A few mi ldly prominent left inguinal nodes. Resolution of the previous fluid collection in the left inguinal region consistent with resolved seroma. No free fluid. Mild uncomplicated divert iculosis sigmoid and distal descending colon. No acute appearing bow el abnormality. Postop change and prominent degenerative change in the lumbar spine. IMPRESSION: 1. No significant change in multiple are as of aneurysmal dilatation in the descending thoracic aorta and abdomi nal aortic aneurysm. Redemonstrated thoracic and upper abdomi nal aorta endograft. 2. No acute appearing pulmonary disease. 3. No acute appearing abnormality in the abdomen or pelvis. 4. Resolution of previous left inguinal fluid collection. There are a few mildly enlarged left inguinal lymph nodes. MARISOL MEYER MD Butch Brown MD IMG CT ORDERABLES (ABNORMAL) Creatinine POCT (05/17/2019 10:21 AM CDT) P athologist Signature Creatinine 1.8 (H) 0.66 - 05/17/2019 POINT OF CARE 1.25 mg/dL 10:23 AM CDT TEST, HANDHELD METER GFR Estimate 37 (L) >60 05/17/2019 POINT OF CARE mL/min/{1. 10:23 AM CDT TEST, 73_m2} HANDHELD METER GFR Estimate If 45 (L) >60 05/17/2019 POINT OF CARE Black mL/min/{1. 10:23 AM CDT TEST, 73_m2} HANDHELD METER Specimen Anatomical Collection Method Collection Time Receive d Time (Source) Location / / Volume Laterality 05/17/2019 10:21 05/17/2019 AM CDT 10:23 AM CDT Butch Brown MD [facility] POCT Performing Organization Address City/State/ZIP Code Phon e Number FV POINT OF CARE TEST, HANDHELD METER POINT OF CARE TEST, HANDHELD METER documented in this encounter Visit Diagnoses Diagnosis Thoracic aortic aneurysm (H) Thoracic aneurysm without mention of rup ture documented in this encounter Additional Health Concerns Infection Onset Date Last Indicated Resolved Time MRSAComment: Positive 02/17/11 and 09/22/12 11/05/2018 019 Negatives 05/03/14 (HE), 12/01/14 (HE) documented as of this encounter Care Teams Project Intern Relationship Specialty Start Date End Date [facility] [place] PCP - General 05/12/[address] [place] [id number] documented as of this encounter
--- OUTSIDE RECORDS SUMMARY | 2022-05-28 05:02 | XMS_ITS | Encounter Summary ---
:1940 Author Organization [place] Address [address] [place] [address] Care Team Providers Name Role Phone [facility], [facility] Primary Care Provider [phone] Encounter Details Date Type Department Care Team Description 12/08/2019 Travel Social History Tobacco Use Types Packs/Day [...] documented as of this encounter Care Teams Online Content Developer Relationship Specialty Start Date End Date [facility], [facility] PCP - General 05/12/[address] [place] [address] documented as of this encounter
--- OUTSIDE RECORDS SUMMARY | 2022-05-28 05:02 | XMS_ITS | Encounter Summary ---
:1940 Author Organization [place] Address [address] [facility] [place] [address] Care Team Providers Name Role Phone Clinic, [facility] Primary Care Provider [phone] Reason for Visit Reason Onset Date Comments Clinic Care Coordination - Follow-up 11/15/2019 Encounter Details Date Type Department Care Team Description 11/15/2019 Telephone [facility] Ramiro Loco Cli [facility] Félix juarez MD Coordination - [address] Follow-up [address] [place] [address] [place] [id number] (Wo rk) Social History Tobacco Use Types [...] this encounter Miscellaneous Notes Telephone Encounter - Sondra Johnson RN - 11/29/2019 9:12 AM CST Order entered. SHASTA Winkler, RN-[facility] ERTY WORKER Telephone Encounter - Ro Taylor RN - 11/25/2019 2:34 PM CST Pt called back, left vm to discuss lab request (creat/gfr). I called pt back, pt reports labs [facility] 11[facility]24/19 [facility]5 and GFR 55 on 11/24/19. I explained to pt he does not need another lab draw and we will work with these lab results. Pt notes understanding. Routing to Dr. Loco's nurse Leatha for placement of imaging order (to be done in 6 months) per Dr[address] Loco's request. SHASTA Sotomayor, JOSE [facility] ERTY WORKER Telephone Encounter - Ro Taylor RN - 11/25/2019 1:49 PM CST Pt called back , left vm to discuss labs ordered by Dr. Loco. SHASTA Sotomayor, JOSE [facility] ERTY WORKER Telephone Encounter - Ro Taylor RN - 11/15/2019 2:41 PM CST Creatinine check/lab order placed in [facility]. I called pt, left vm explaining he can get this checked at his convenience, upon results we will then order his follow up imaging and OV per Dr. Loco and to call if any questions. SHASTA Sotomayor, RN [facility] [place] ERTY WORKER Telephone Encounter - Ro Taylor RN - 11/15/2019 2:[address] Claudy We will recheck his creatinine. I will see him back again in 6 months with either a standard CTA of the chest, abdomen and pelvis versus a noncontrasted study depending upon his renal function. Will order recheck of creatinine, based on creatinine results will order either CTA or CT of chest/abd/pelvis. SHASTA Sotmoayor, RN [facility] ERTY WORKER documented in this encounter Plan of Treatment Not on filedocumented as of this encounter Visit Diagnoses Diagnosis Thoracic aortic aneurysm without rupture (H) - Primary Thoracic aneurysm without mention of rup ture Abdominal aortic aneurysm (AAA) without rupture (H) documented in this encounter Additional Health Concerns Infection Onset Date Last Indicated Resolved Time MRSAComment: Positive 02/17/11 and 09/22/12 11/05/2018 019 Negatives 05/03/14 (HE), 12/01/14 (HE) documented as of this encounter Care Teams Incubator Machine Operator Relationship Specialty Start Date End Date [facility] [place] PCP - General 05/12/[address] [place] [address] documented as of this encounter
--- OUTSIDE RECORDS SUMMARY | 2022-05-28 05:02 | XMS_ITS | Encounter Summary ---
:1940 Author Organization [place] Address [facility] [place] [address] Care Team Providers Name Role Phone Clinic, [facility] Primary Care Provider [phone] Reason for Visit Reason Onset Date Comments Pain 08/08/2021 Encounter Details Date Type Department Care Team Description 08/08/2021 Telephone [facility] Ramiro Loco MD Pain Clinic [address] [address] [place] [address] [place] [address] [phone] Social History Tobacco Use Types Packs/Day Years [...] / COVID-19? documented as of this encounter Miscellaneous Notes Telephone Encounter - Kim Neal - 08/20/2021 8:38 AM CDT [facility] Who is the name of the provider? Dr Gonzalez What is the location you see this provider at? [place] Reason for call: Returned RN's call - relayed message - Pt is scheduled for Dr Gonzalez on 08/29/21 Winemaker: Raquel Phone number to call: [phone] Additional Notes: Telephone Encounter - Ro Taylor RN - 08/19/2021 4:37 PM CDT Discussed with Dr. Gonzalez, pt may have office visit with Dr. Gonzalez at next available, no further imaging needed. SHASTA Sotomayor, JOSE [facility] [place] Office: [phone] Telephone Encounter - Cindy Taylor RN - 08/19/2021 4:29 PM CDT I called Raquel and PHIL stating we will discuss with Dr. Gonzalez and get back to her. Cindy VEGAS, JOSE [facility] Office: [phone] Telephone Encounter - Kim Neal - 08/19/2021 3:55 PM CDT [facility] Who is the name of the provider? Prev Dr Lewis, Dr Brown and Dr Loco Pt What is the location you see this provider at? [place] / [place] Reason for call: 1. Pt has not heard back from his CTA on 08/08/21 - Pt was under the understanding that his CTA was urgent so didn't know he would have to wait until his appt for his results 2. Pt wasscheduled with Dr Loco on 08/20/21 but due to their conversation on 11/09/[address] Bush saying there was nothing his could do for him therefore would like to see Dr Gonzalez for another opinion/follow up. Winemaker: Raquel Phone number to call: [phone] Additional Notes: Pt stated he is still having back pain Telephone Encounter - Lillian Uribe MA - 08/08/2021 12:34 PM CDT Patient is scheduled for CTA today at 4:00. Follow up with Dr. Loco is scheduled on 08/20/21 Telephone Encounter - Ro Taylor RN - 08/08/2021 11:37 AM CDT Pt is overdue for CTA chest/abdomen/pelvis. Creat 1.42, GFR 58 on 02/21/21. Pt will need oral hydration. Routing to manufacturing scheduler to coordinate CTA c/a/p today. Please call pts daughter to coordinate [phone]. Then in person OV f/u with Dr. Loco at next nearest available. SHASTA Sotomayor, RN [facility] Office: [phone] Telephone Encounter - Ro Taylor RN - 08/08/2021 11:24 AM CDT Pt hx of TEVAR 11/09/[address] Brown. Pt following with Dr. Kwesi Mayo. Pts daughter reports pt had Sciatic injeciton in Jun, then 1 week before this had an MRI done (theyadjusted the MRI setting for account for the graft). Starting 1 1/2 weeks ago began experiencing burning pain left side upper thoracic. Cannot reproduce pain with pressure. When lies down goes away. Tylenol doesn't touch it. No fatigue/n/v/diarrhea/fever/ chills. Pt is overdue for CTA c/a/p. Pt has had consult with Dr. Orosco at [place], no further AAA surgery with Dr. Orosco. Reviewed with Rosario Hendricks MD. SHASTA Sotomayor, RN [facility] Office: [phone] Telephone Encounter - Lillian Uribe MA - 08/08/2021 11:08 AM CDT Patient's daughter, Raquel, called to ask about pain patient has been experiencing. She states that for the last few days patient has been having back pain and a burning sensation and they are worried with his history of EVAR. She would like to know if she should bring him into the ED for evaluation or set up an appointment. She would like a call back at [phone] documented in this encounter Plan of Treatment Not on filedocumented as of this encounter Visit Diagnoses Not on filedocumented in this encounter Additional Health Concerns Infection Onset Date Last Indicated Resolved Time MRSAComment: Positive 02/17/11 and 09/22/12 11/05/2018 019 Negatives 05/03/14 (HE), 12/01/14 (HE) documented as of this encounter Care Teams Supervisor Capacitor Processing Relationship Specialty Start Date End Date Clinic, [facility] Center Clinic PCP - General 05/12/[address] [place] [address] documented as of this encounter
--- OUTSIDE RECORDS SUMMARY | 2022-05-28 05:02 | XMS_ITS | Encounter Summary ---
:1940 Author Organization [facility] Address [address] [place] [address] Care Team Providers Name Role Phone Unavailable Primary Care Provider Unavailable Encounter Details Date Type Department Care Team Description 04/16/2022 Orders Only [facility] Denilson Quinones MD [phone] [place] [address] [place], [place] [phone] (Wo rk) Social History Tobacco Use Types Packs/Day Years Used Date Smoking Tobacco: Never Assessed Sex Assigned at Date Recorded Not on file documented as of this encounter Plan of Treatment Not on filedocumented as of this encounter Procedures Procedure Name Priority Date/Time Associated Diagnosis Comme nts GFR (HC) Routine 04/16/2022 Results for thi [...] this encounter Results Spectra J[facility]EL Lab Results (04/16/2022) athologist Signature spKt/V 1.37 JALEEL ([place] II) eKt/V 1.14 JALEEL ([place]) Specimen (Source) Anatomical Location Collection Method / Collectio n Time Received Time / Laterality Volume 04/16/2022 04/16/2022 Jaleel Ordering Provider LAB BLOOD ORDERABLES Performing Organization Address City/State/ZIP Code Phon e Number JALEEL [employer] (04/16/2022) P athologist Signature Aluminum <5 0 - 10 APS SPECTRA mcg/L [facility] Comment: This test was developed and its performa nce characteristics determined by [facility]. It has not been cleared or approved by the FDA. The laboratory is regulated under CLIA a s qualified to perform high complexity testing. This test is used fo r clinical purposes. It should not be regarded as investigational or fo r research. Specimen (Source) Anatomical Collection Method Collection Time Re ceived Time Location / / Volume Laterality 04/16/2022 04/17/2022 10:4 2 AM CDT Narrative APS SPECTRA [facility] - 04/17/2022 Unless otherwise specified, test(s) performed at: [facility], [address] [place] [id number] MANAGER STRATEGIC SOURCING: Henok Correa M.D. For any questions, please call customer service at FREQUENCY:MONTHLY Resulting Agency Comment Specimen source: Serum Denilson Holly MD LAB BLOOD ORDERABLES Performing Organization Address City/[facility] [address]/[facility] Code Phon e Number APS SPECTRA [facility] IMMUNO CHEMISTRY (04/16/2022) athologist Signature Hep B Surface Negative Negative APS SPECTRA Ag [facility] Hepatitis B <10 mIU/mL APS SPECTRA Surface Ab [facility] Comment: Reference Range: <10 mIU/mL ? Non-Immune >=10 mIU/mL ?Immune The magnitude of the measured result abo ve 10 mIU/mL is not indicative of the total amount of antibody present. Custom Exception Hep B Core Total Ab Negative Negative APS SPECTR A [facility] Comment: Hep B Core Ab, Total appears during the acute infection stage and remains reactive/positive throughout the recovery stage. The above test result was obtained using Siemens NGRAINaur XP chemiluminescent method. Results obtaine d with different assay methods or kits cannot be used interchangeably. Specimen (Source) Anatomical Collection Method Collection Time Re ceived Time Location / / Volume Laterality 04/16/2022 04/17/2022 9:14 AM CDT Narrative APS SPECTRA [facility] - 04/17/2022 Unless otherwise specified, test(s) performed at: [facility], [address] [place] [phone] MANAGER STRATEGIC SOURCING: Henok Correa M.D. For any questions, please call customer service at FREQUENCY:MONTHLY Resulting Agency Comment Specimen source: Serum Denilson Holly MD LAB BLOOD ORDERABLES Performing Organization Address City/[facility] [address]/[facility] Code Phon e Number APS SPECTRA [facility] (ABNORMAL) Spectrae Chemistry (04/16/2022) P athologist Signature PTH 108 (H) 16 - 80 APS SPECTRA pg/mL [facility] Specimen (Source) Anatomical Collection Method Collection Time Re ceived Time Location / / Volume Laterality 04/16/2022 04/17/2022 9:16 AM CDT Narrative APS SPECTRA [facility] - 04/17/2022 Unless otherwise specified, test(s) performed at: [facility], [address] [place] [address] MANAGER STRATEGIC SOURCING: Henok Correa M.D. For any questions, please call customer service at FREQUENCY:MONTHLY Resulting Agency Comment Specimen source: Plasma Denilson Holly MD LAB BLOOD ORDERABLES Performing Organization Address City/[facility] [address]/[facility] Code Phon e Number APS SPECTRA [facility] HD KINETICS (04/16/2022) P athologist Signature % Urea 69 65 - 80 % APS SPECTRA Reduction [facility] Specimen (Source) Anatomical Collection Method Collection Time Re ceived Time Location / / Volume Laterality 04/16/2022 04/17/2022 9:14 AM CDT Resulting Agency Comment Specimen source: Serum Denilson Holly MD LAB BLOOD ORDERABLES Performing Organization Address City/[facility] [address]/ZIP Code Phon e Number APS SPECTRA [facility] POST CHEMISTRY (04/16/2022) P athologist Signature BUN Post 18 6 - 19 APS SPECTRA Dialysis mg/dL [facility] Specimen (Source) Anatomical Collection Method Collection Time Re ceived Time Location / / Volume Laterality 04/16/2022 04/17/2022 9:08 AM CDT Narrative APS SPECTRA [facility] - 04/17/2022 Unless otherwise specified, test(s) performed at: [facility], [address] [place] [phone] MANAGER STRATEGIC SOURCING: Henok Correa M.D. For any questions, please call customer service at FREQUENCY:MONTHLY Resulting Agency Comment Specimen source: Plasma Denilson Holly MD LAB BLOOD ORDERABLES Performing Organization Address City/State/ZIP Code Phon e Number APS SPECTRA [facility] (ABNORMAL) Spectrae Chemistry (04/16/2022) P athologist Signature BUN 59 (H) 6 - 19 APS SPECTRA mg/dL [facility] Creatinine 2.35 (H) 0.60 - 1.30 APS SPECTRA mg/dL [facility] Comment: Custom Exception BUN/Creatinine Ratio 25.1 (H) 10.0 - 20.0 APS SPE CTRA [facility] Sodium 145 136 - 145 mEq/L [facility] Potassium 4.5 3.5 - 5.1 mEq/L [facility] Chloride 108 96 - 108 mEq/L [facility]PS [facility] Bicarbonate (CO2) 27 22 - 29 mEq/L APS SPEC TRA [facility] Calcium 8.2 (L) 8.4 - 10.2 mg/dL APS SPECTRA [facility] Corrected Calcium 9.2 8.4 - 10.2 mg/dL APS S PECTRA [facility] Comment: Corrected Calcium is not equivalent to m easured Ionized Calcium. Phosphorus 3.7 2.6 - 4.5 mg/dL APS SPECTRA [facility] Calcium Phosphorus Product 30 0 - 54 APS SPECTRA [facility] Calcium Phosporus Product, Cor 34 0 - 54 APS SPECTRA [facility] Alkaline Phosphatase 91 40 - 129 U/L APS SP ECTRA [facility] Total Protein 5.8 (L) 6.0 - 8.5 g/dL APS SPECTRA [facility] Albumin 2.7 (L) 3.5 - 5.2 g/dL [facility]PS [facility] Globulin, Total 3.1 2.0 - 4.0 g/dL APS SPECT RA [facility] A/G Ratio 0.9 (L) 1.0 - 2.0 APS SPECTRA [facility] Magnesium 1.6 1.6 - 2.6 mg/dL [facility] Iron 59 45 - 160 mcg/dL [facility] UIBC 129 (L) 155 - 355 mcg/dL APS SPECTRA [facility] TIBC 188 185 - 515 mcg/dL APS SPECTRA [facility] Iron Saturation (TSat) 31 20 - 55 % APS SPE CTRA [facility] Ferritin 989 (H) 22 - 322 ng/mL APS SPECTRA [facility] [place] Specimen (Source) Anatomical Collection Method Collection Time Re ceived Time Location / / Volume Laterality 04/16/2022 04/17/2022 9:14 AM CDT Narrative APS SPECTRA [facility] - 04/17/2022 Unless otherwise specified, test(s) performed at: [facility], [address] [place], [place] [phone] MANAGER STRATEGIC SOURCING: Henok Correa M.D. For any questions, please call customer service at FREQUENCY:MONTHLY Resulting Agency Comment Specimen source: Serum Denilson Holly MD LAB BLOOD ORDERABLES Performing Organization Address City/State/ZIP Code Phon e Number APS SPECTRA [facility] GFR (04/16/2022) P athologist Signature eGFR CKD-EPI CR 28 mL/min APS SPECTRA 2020 [facility] Comment: [facility] has implemented the recommended eGFR calculation that [...] ceived Time Location / / Volume Laterality 04/16/2022 04/17/2022 9:14 AM CDT Narrative APS SPECTRA [facility] - 04/17/2022 Unless otherwise specified, test(s) performed at: [facility], [address] [place] [id number] MANAGER STRATEGIC SOURCING: Henok Correa M.D. For any questions, please call customer service at FREQUENCY:MONTHLY Resulting Agency Comment Specimen source: Serum Denilson Holly MD LAB [id number] NSOLICITED RESULTS Performing Organization Address City/State/ZIP Code Phon e Number APS SPECTRA [facility] (ABNORMAL) HEMATOLOGY (04/16/2022) [facility] gist Method Time Signature WBC 7.73 4.80 - APS SPECTRA 10.80 [facility] 1000/mcL RBC 3.62 (L) 4.70 - APS SPECTRA 6.10 [facility] mill/mcL Hemoglobin 11.1 (L) 14.0 - APS SPECTRA 18.0 g/dL [facility] Hemoglobin x 3 33.3 (L) 42.0 - APS SPECTRA 54.0 % [facility] Hematocrit 34.7 (L) 42.0 - APS SPECTRA 52.0 % [facility] MCV 96 80 - 100 APS SPECTRA fl [facility] MCH 30.7 27.0 - APS SPECTRA 31.0 pg [facility] MCHC 32.0 30.0 - APS SPECTRA 36.0 g/dL [facility] RDW 16.3 (H) 11.5 - APS SPECTRA 14.5 % [facility] Neutrophils 77.5 (H) 40.0 - APS SPECTRA 75.0 % [facility] Lymphocytes 11.1 (L) 19.0 - APS SPECTRA Relative 48.0 % [facility] Monocytes 5.2 3.0 - 10.0 APS SPECTRA % [facility] Eosinophils 4.4 0.0 - 7.0 APS SPECTRA Relative % [facility] Basophils 0.1 0.0 - 1.5 APS SPECTRA Relative % [facility] YARIEL 1.7 0.0 - 4.0 APS SPECTRA % [facility] Platelets 229 130 - 400 APS SPECTRA 1000/mcL [facility] Specimen (Source) Anatomical Collection Method Collection Time Re ceived Time Location / / Volume Laterality 04/16/2022 04/17/2022 9:16 AM CDT Narrative APS SPECTRA [facility] - 04/17/2022 Unless otherwise specified, test(s) performed at: [facility], [address] [place] [phone] MANAGER STRATEGIC SOURCING: Henok Correa M.D. For any questions, please call customer service at FREQUENCY:MONTHLY Resulting Agency Comment Specimen source: Blood Denilson Holly MD LAB BLOOD ORDERABLES Performing Organization Address City/State/ZIP Code Phon e Number APS SPECTRA [facility] documented in this encounter Visit Diagnoses Not on filedocumented in this encounter
--- OUTSIDE RECORDS SUMMARY | 2022-05-28 05:02 | XMS_ITS | Encounter Summary ---
:1940 Author Organization [facility] Address [address] [place] [address] Care Team Providers Name Role Phone [facility], [facility] Primary Care Provider [phone] Encounter Details Date Type Department Care Team Description 05/17/2019 Travel Social History Tobacco Use Types Packs/Day [...] documented as of this encounter Care Teams Crime Lab Analyst Relationship Specialty Start Date End Date [facility], [facility] PCP - General 05/12/[address] [place] [id number] documented as of this encounter
--- OUTSIDE RECORDS SUMMARY | 2022-05-28 05:02 | XMS_ITS | Encounter Summary ---
:1940 Author Organization [facility] Address [facility] [place] [address] Care Team Providers Name Role Phone Clinic, [facility] Primary Care Provider Encounter Details Date Type Department Care Team Description 11/26/2018 [facility] Butch Brown [facility] Félix Jay MD aneurysm (H) (Primary [address] ) [address] [place] [address] [place] [id number] Social History Tobacco Use Types Packs/Day Years [...] Visit Diagnoses Diagnosis Thoracic aortic aneurysm (H) - Primary Thoracic aneurysm without mention of rup ture documented in this encounter Additional Health Concerns Infection Onset Date Last Indicated Resolved Time MRSAComment: Positive 02/17/11 and 09/22/12 11/05/2018 019 Negatives 05/03/14 (HE), 12/01/14 (HE) documented as of this encounter Care Teams Apparel Pattern Maker Relationship Specialty Start Date End Date [facility], [facility] PCP - General 05/12/[address] [place] [address] documented as of this encounter
--- OUTSIDE RECORDS SUMMARY | 2022-05-28 05:03 | XMS_ITS | Encounter Summary ---
:1940 Author Organization [place] Address [address] [facility] [place] [address] Care Team Providers Name Role Phone Clinic, [facility] Primary Care Provider [phone] Reason for Visit Auth/Cert Specialty Diagnoses / Procedures Referred By Contact Refer red To Contact Surgery Diagnoses DESCENDING THORACIC AORTIC ANEURYSM Sh Periop Services Procedures ENDOVASCULAR REPAIR ANEURYSM THORACIC AORTIC [address], [address] [place] [address] Phone: Referral ID Status Reason Start Date Expiration Date Visits Requ ested Visits Authorized [id number] 1 1 Encounter Details Date Type Department Care Team Description 11/05/2018 Surgery [facility] Juan Lewis THORACIC ENDOVASCULAR [place] PeriOP MD Elijah ANEURYSM REPAIR WITH Services [address] [employer] [address], [address] [place] [address] [place] [address] [phone] Surgery Details Date/Time Status Location OR Service Patient Case Class Case Tr auma Class Type Case? 11/05/18 8:10 Posted OR OR M 51 General Surgery AM Admit Panel 1 Procedure LRB Anes Op Region Wound Class Commen ts THORACIC ENDOVASCULAR ANEURYSM REPAIR WITH N/A General Abdo men I-Clean [employer] GRAFT Surgeon Surgeon Role Service Panel Juan Lewis MD Primary General 1 Butch Brown MD Assisting General 1 Bessy Mccray MD Fellow - Assisting General 1 Special Needs BLOOD TRANSFUSION ISSUE (RARE ANTIBODIES ) PT WILL DO A TYPE AND CROSS ON 11/03 JALEEL 10/28 documented in this encounter Social History Tobacco Use Types Packs/Day Years [...] Sign Reading Time Taken Comments Blood Pressure 159/88 11/05/2018 9:00 AM [facility] Pulse 57 11/05/2018 9:00 AM [employer] Temperature 36.7 ??C (98.1 ??F) 11/05/2018 6:27 AM [employer] [employer] Respiratory Rate 21 11/05/2018 9:05 AM [employer] [employer] Oxygen Saturation 100% 11/05/2018 9:05 AM [employer] [employer] Inhaled Oxygen Concentration - - Weight 84.3 kg (185 lb 14.4 oz) 11/05/2018 6:27 AM [employer] [employer] Height 167.6 cm (5' 6) 11/05/2018 6:27 AM [employer] [employer] Body Mass Index 31.06 11/05/2018 6:27 AM [employer] [employer] documented in this encounter Discharge Summaries Bessy Mccray MD - 11/09/2018 10:56 AM CST Physician Discharge Summary Patient ID: Speedy Hendricks [id number] 78 year old 1940 Admit date: 11/05/2018 Discharge date and time: 11/09/2018 Admitting Physician: Juan Lewis MD Discharge Physician: Dr. Lewis Admission Diagnoses: Thoracic aortic aneurysm (H) [I71.2] Discharge Diagnoses: same Admission Condition: good Discharged Condition: good Indication for Admission: s/p TEVAR Hospital Course: Surgery was without complication and patient was admitted to the ICU for close monitoring with spinal drain in place. The drain was clamped on the evening of POD#0 and close neuromonitoring was performed. His BP was controlled with goal MAP > 80. He had a chapman catheter that was subsequently removed. The spinal drain was removed on POD#3 due to decreasing platelets. He did have anelevated creatinine likely due to contrast utilization that returned to normal prior to discharge. After spinal drain was removed the patient was transferred to the surgical floor and increased ambulation was encouraged. His pain was controlled and he was tolerating an oral diet. He was discharged to [facility] on POD#4 in stable condition. Consults: pulmonary/intensive care and vascular medicine Significant Diagnostic Studies: labs: routine Treatments: surgery: Left femoral cutdown, right common femoral artery US guided access, Aortic archangiogram and placement of 2 Thoracic aortic endografts (medtronic, please see op note for full details). Disposition: home Patient Instructions: Current Discharge Medication List START taking these medications Details oxyCODONE (ROXICODONE) 5 MG tablet Take 1 tablet (5 mg) by mouth every 4 hours as needed for moderate to severe pain Qty: 20 tablet, Refills: 0 Associated Diagnoses: Thoracic aortic aneurysm without rupture (H) CONTINUE these medications which have NOT CHANGED Details acetaminophen (TYLENOL) 500 MG tablet Take 500 mg by mouth 3 times daily as needed for mild pain apixaban ANTICOAGULANT (ELIQUIS) 2.5 MG tablet Take 1 tablet (2.5 mg) by mouth 2 times daily Qty: 60 tablet, Refills: 1 Associated Diagnoses: Transient cerebral ischemia, unspecified type atorvastatin (LIPITOR) 40 MG tablet Take 1 tablet (40 mg) by mouth daily Qty: 30 tablet, Refills: 0 Associated Diagnoses: Hyperlipidemia LDL goal <70; Acute left-sided low back pain without sciatica furosemide (LASIX) 20 MG tablet Take 20 mg by mouth daily HOLD lisinopril (PRINIVIL/ZESTRIL) 10 MG tablet Take 5 mg by mouth 2 times daily (0.5 x 10 mg = 5 mg dose) metoprolol tartrate (LOPRESSOR) 50 MG tablet Take 50 mg by mouth 2 times daily sodium bicarbonate 650 MG tablet Take 650 mg by mouth At Bedtime terazosin (HYTRIN) 5 MG capsule Take 5 mg by mouth At Bedtime Activity: activity as tolerated and no lifting, Driving, or Strenuous exercise for 2 weeks Diet: regular diet Wound Care: keep wound clean and dry Follow-up with Dr. Lewis in 2 weeks. Patient will need repeat CTA chest/abd/pelvis and repeat creatinine checked prior to. Signed: Bessy Mccray 11/09/2018 10:56 AM [facility] Associated attestation - Juan Lewis MD - 11/11/2018 3:10 PM [employer] Physician Attestation I, Juan Lewis, have reviewed and discussed with the advanced practice provider their discharge plan for Speedy Hendricks. I did not participate in a shared visit by interviewing or examining the patient and this should be billed as an advanced practice provider only discharge. Juan Lewis Date of Service (when I saw the patient): I did not personally see this patient today. documented in this encounter Discharge Instructions Discharge InstructionsKiki Traylor RN - 11/09/2018 11:47 AM CST [facility] AttachmentsThe following attachments cannot be sent through Care Everywhere.(S) TREATING A THORACIC AORTIC ANEURYSM (TAA): ENDOVASCULAR GRAFT (ICELANDIC) documented in this encounter Medications at Time of Discharge [...] At Bedtime documented as of this encounter Progress Notes Kiki Traylor RN - 11/09/2018 12:14 PM CST Vital signs stable. Incisions clean dry and intact. Patient and daughter verbalized understanding ofall discharge instructions and follow up appointments. Patient transported home with family via car.All questions answered. [facility] Gurwinder Godoy MD - 11/09/2018 12:02 PM CST [facility] Vascular Medicine Progress Note Date of Service (when I saw the patient): 11/09/2018 Physician Supervisory Attestation: I have reviewed and discussed with the physician assistant food service director their history, physical and plan and independently interviewed and examined Speedy Hendricks and agree with the plan as stated in the physicianassistant note. Doing well, hemodynamically stable, ambulated, voided and had BM. Pain well controlled. Platelets stable. Surgical site looks good, palpable pulses. -OK to discharge to home today. -Follow up with Dr. Lewis in 2 weeks. Will need a CTA chest/abdomen/pelvis in 2-4 weeks. ( BMP before CTA) -Resume Eliquis 2.5 bid for A.fib starting tonight. -OK to resume prior to admission Lisinopril. Patient care time spent 35 minutes Discussed with vascular surgery service. Gurwinder Godoy MD,[facility] Vascular Medicine service 11/09/2018 Assessment & Plan Speedy Hendricks is a 78 year old male who was admitted on 11/05/2018. 1. 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 Lumbar drain removed early am on 11/08 with no neurological side effects. Chapman removed 11/08 and voiding well. +BM BP acceptable Palpable pedal pulses. Surgical site looks good, dressings removed. Platelets 108-->153-->82-->87-->82 -->83 doubt HIT Creat 1.52-->1.30-->1.57--> 1.47 --> 1.29 --> 1.24 Improving hgb 11.5 --> 11.6 --> 11.3 Stable. Plan: -OK to discharge to home today. -Follow up with Dr. Lewis in 2 weeks. Will need a CTA chest/abdomen/pelvis in 2-4 weeks. -Resume Eliquis for A.fib. -OK to resume prior to admission Lisinopril. ?? 2. 46 mm nonruptured fusiform infrarenal AAA, anatomically amenable to endovascular aneurysm repair? Assessment: EVAR was originally scheduled for 09/28/18, but this was aborted after the finding of a large thoracic aortic aneurysm??during angiogram.?? Plan: Eventually, this may need to be repaired. Dr. Lewis will follow as an outpatient. ?? 3.??Chronic atrial fibrillation.? Assessment: CHADS2-VASc score is 4 denoting a 4.8% annual risk of stroke if not anticoagulated. ?? Plan: Resume Eliquis anticoagulation now that he is 24 hours post lumbar drain removal. ?? 4. ??Hyperlipidemia with LDL goal of less than 70. ? Assessment: LDL of 44 - at goal Plan: Continue Atorvastatin 40 mg daily. ?? 5. CKD stage 3 ?? Assessment: His creatinine improved again today. Plan: This should be monitored closely given the contrast he received for the procedure. He should follow up with PCP to recheck this in next week. Avoid nephrotoxic meds. ?? Interval History Doing well. Sitting up in chair. Ambulating. Voiding. +BM. Pain under control. Hoping to go home. Physical Exam Temp: 97.9 ??F (36.6 ??C) Temp src: Oral BP: 158/88 Pulse: 100 Heart Rate: 93 Resp: 22 SpO2: 93 % [id number]: None (Room air) Vitals: 11/06/18 0211 11/07/18 0600 11/09/18 0639 Weight: 89.6 kg (197 lb 8.5 oz) 90.5 kg (199 lb 8.3 oz) 87.3 kg (192 lb 7.4 oz) Vital Signs with Ranges Temp: [97.9 ??F (36.6 ??C)-99.3 ??F (37.4 ??C)] 97.9 ??F (36.6 ??C) Pulse: [57-100] 100 Heart Rate: [54-101] 93 Resp: [12-27] 22 BP: (109-165)/(53-93) 158/88 SpO2: [92 %-98 %] 93 % I/O last 3 completed shifts: In: 1863.75 [P.O.:270; I.V.:1593.75] Out: 1585 [Urine:1585] Constitutional: Awake, alert, cooperative, no apparent distress, and appears stated age. Eyes: Lids and lashes normal, pupils equal, round and reactive to light, extra ocular muscles intact, sclera clear, conjunctiva normal. ENT: Normocephalic, without obvious abnormality Respiratory: No increased work of breathing, good air exchange, clear to auscultation bilaterally, no crackles or wheezing. Cardiovascular: a fib, irregularly irregular GI: normal bowel sounds, soft, non-distended, non-tender, no masses palpated, no hepatosplenomegaly. Lymph/Hematologic: No cervical lymphadenopathy and no supraclavicular lymphadenopathy. Genitourinary: Chapman in place Skin: surgical site looks good , no hematoma etc Musculoskeletal: There is no redness, warmth, or swelling of the joints. Full range of motion noted.Motor strength is 5 out of 5 all extremities bilaterally. Tone is normal. Neurologic: Awake, alert, oriented to name, place and time. Cranial nerves II- XII are grossly intact. BLE good sensation Neuropsychiatric: Calm, normal eye contact, alert, normal affect, oriented to self, place, time and situation, memory for past and recent events intact and thought process normal. Pulses: palpable pedal pulses. Medications ??? apixaban ANTICOAGULANT 2.5 mg Oral BID ??? atorvastatin 40 mg Oral QPM ??? HYDROmorphone 0.2-0.4 mg Intravenous Once ??? metoprolol tartrate 50 mg Oral BID ??? omeprazole 20 mg Oral QAM AC ??? sodium bicarbonate 650 mg Oral At Bedtime ??? sodium chloride (PF) 3 mL Intracatheter Q8H ??? terazosin 5 mg Oral At Bedtime Data Recent Labs Lab 11/09/18 0741 11/08/18 0340 11/07/18 1500 11/07/18 0950 11/05/18 1635 WBC 9.3 11.2* 11.1* 10.4 < > 7.3 HGB 11.3* 11.6* 11.9* 11.5* < > 13.7 MCV 95 95 95 95 < > 94 PLT 83* 82* 87* 82* < > 108* INR -- -- -- -- -- 1.03 NA 144 142 -- 147* < > 143 POTASSIUM 4.0 4.2 -- 4.1 < > 4.3 CHLORIDE 113* 111* -- 117* < > 113* CO2 22 22 -- 20 < > 22 BUN 21 20 -- 23 < > 24 CR 1.24 1.29* -- 1.47* < > 1.30* ANIONGAP 9 9 -- 10 < > 8 BALDEMAR 8.4* 8.2* -- 8.2* < > 8.6 GLC 94 164* -- 108* < > 121* ALBUMIN 2.4* 2.6* -- -- -- -- PROTTOTAL 6.2* 6.0* -- -- -- -- BILITOTAL 1.3 1.1 -- -- -- -- ALKPHOS 72 62 -- -- -- -- ALT 17 18 -- -- -- -- AST 15 19 -- -- -- -- < > = values in this interval not displayed. [facility] Bessy Mccray MD - 11/09/2018 7:36 AM CST Vascular Surgery Progress Note Had an episode of confusion this am and IV accidentally removed as patient was tangled. Otherwise doing well and is hoping for home as early as today No pain, tolerating diet, + BM B/P: 149/77, T: 97.9, P: 62, R: 21 Alert oriented no acute distress Bilateral groin incisions c/d/i with steri strips Motor intact, no weakness Palpable pedal pulses bilaterally, minimal edema WBC Date Value Ref Range Status 11/08/2018 11.2 (H) 4.0 - 11.0 10e9/L Final ] Hemoglobin Date Value Ref Range Status 11/08/2018 11.6 (L) 13.3 - 17.7 g/dL Final ] INR Date Value Ref Range Status 11/05/2018 1.03 0.86 - 1.14 Final Creatinine Date Value Ref Range Status 11/08/2018 1.29 (H) 0.66 - 1.25 mg/dL Final ] Intake/Output Summary (Last 24 hours) at 11/09/2018 0736 Last data filed at 11/09/2018 0200 Gross per 24 hour Intake 1270 ml Output 1585 ml Net -315 ml Assessment/Plan: 78 year old male POD#4 s/p TEVAR for descending thoracic aortic aneurysms BP in appropriate range (120-160 systolic). Home diuretics have not been restarted. Cr improving, was down to 1.2 yesterday IVF discontinued Possible low grade temperature today - suspect due to graft placement and/or atelectasis. Will follow up am labs. Dispo planning to home, potentially later today if patient continues to do well. Plan for follow up with repeat CTA chest/abd/pelvis in 2-4 weeks, will need creatinine checked prior. Bessy Martinez MD Vascular Surgery Fellow Pager [facility] Associated attestation - Butch Brown MD - 11/16/2018 9:50 AM [employer] I was involved with the assessment and plan, and I agree with the findings and plan of care as documented in the fellow's note. MD Wilfredo Castillo Carley, RN - 11/08/2018 6:35 PM CST Pt arrived to station 33 @ 1820 [facility] Aura Crooks RN - 11/08/2018 5:05 PM CST Pt had drained removed this AM. Draining moderate amount- MDA aware. SR. BP wnl- gave hydralazine x1prn. Chapman to be removed prior to transfer. Lines out and hemostasis achieved. Up to chair- tolerated well, SBA. Frequent neuros- wnl. Will call report to [facility] and will transfer at . [facility] Dimas Chapman MD - 11/08/2018 12:41 PM CST [facility] Vascular Medicine Progress Note Date of Service (when I saw the patient): 11/08/2018 Assessment & Plan Speedy Hendricks is a 78 year old male who was admitted on 11/05/2018. 1. Descending 5.0 cm thoracic aortic aneurysm s/p endovascular repair with Medtronic graft ( TEVAR) 11/05/18 POD 3 ?? Lumbar drain removed earlier this AM. Discontinue chapman when off bed rest post spinal drain removal.Transfer to station 33 later this evening when off of neuro checks. Transfer orders placed. BP acceptable Platelets 108-->153-->82-->87-->82 doubt HIT, will monitor Creat 1.52-->1.30-->1.57--> 1.47 --> this am 1.29 hgb 11.6 ( 11.5) He has palpable pedal pulses. Surgical site looks good, dressings removed. Sodium corrected. ?? 2. 46 mm nonruptured fusiform infrarenal AAA, anatomically amenable to endovascular aneurysm repair? EVAR was originally scheduled for 09/28/18, but this was aborted after the finding of a large thoracic aortic aneurysm??during angiogram.??Eventually, this may need to be repaired. ?? 3.??Chronic atrial fibrillation.? CHADS2-VASc score is 4 denoting a 4.8% annual risk of stroke if not anticoagulated. ??As such, he should reinstitute Eliquis anticoagulation once 24 hours post lumbar drain removal. ?? 4. ??Hyperlipidemia with LDL goal of less than 70. ? LDL of 44. Continue Atorvastatin 40 mg daily. ?? 5. CKD stage 3 ?? His creatinine 1.29 ( 1.47) today. This should be monitored closely given the contrast he received for the procedure . Avoid nephrotoxic meds. ?? Dimas Chapman MD Vascular Medicine Interval History Reviewed last night events, off of osiel, BP elevated Lumbar/spinal drain clamped and this is managed by vascular surgery He is AAOX3, normal neuro exam Good pulses and surgical site looks good. Physical Exam Temp: 98.3 ??F (36.8 ??C) Temp src: Oral BP: 151/76 Pulse: 75 Heart Rate: 87 Resp: 22 SpO2: 94 % O2 Device: None (Room air) Vitals: 11/05/18 0627 11/06/18 0211 11/07/18 0600 Weight: 185 lb 14.4 oz (84.3 kg) 197 lb 8.5 oz (89.6 kg) 199 lb 8.3 oz (90.5 kg) Vital Signs with Ranges Temp: [98.3 ??F (36.8 ??C)-99.6 ??F (37.6 ??C)] 98.3 ??F (36.8 ??C) Pulse: [68-103] 75 Heart Rate: [57-100] 87 Resp: [10-33] 22 BP: (130-180)/(60-109) 151/76 MAP: [74 mmHg-106 mmHg] 78 mmHg Arterial Line BP: (132-190)/(46-66) 174/47 SpO2: [90 %-98 %] 94 % I/O last 3 completed shifts: In: 3520 [P.O.:1120; I.V.:2400] Out: 2585 [Urine:2575; Drains:10] Constitutional: Awake, alert, cooperative, no apparent distress, and appears stated age. Eyes: Lids and lashes normal, pupils equal, round and reactive to light, extra ocular muscles intact, sclera clear, conjunctiva normal. ENT: Normocephalic, without obvious abnormality Respiratory: No increased work of breathing, good air exchange, clear to auscultation bilaterally, no crackles or wheezing. Cardiovascular: a fib, irregularly irregular GI: normal bowel sounds, soft, non-distended, non-tender, no masses palpated, no hepatosplenomegaly. Lymph/Hematologic: No cervical lymphadenopathy and no supraclavicular lymphadenopathy. Genitourinary: Chapman in place Skin: surgical site looks good , no hematoma etc Musculoskeletal: There is no redness, warmth, or swelling of the joints. Full range of motion noted.Motor strength is 5 out of 5 all extremities bilaterally. Tone is normal. Neurologic: Awake, alert, oriented to name, place and time. Cranial nerves II- XII are grossly intact. BLE good sensation Neuropsychiatric: Calm, normal eye contact, alert, normal affect, oriented to self, place, time and situation, memory for past and recent events intact and thought process normal. Pulses: palpable pedal pulses. Medications ??? dextrose 5% and 0.45% NaCl 100 mL/hr at 11/08/18 0735 ??? phenylephrine IV infusion ADULT Stopped (11/06/18 1940) ??? sodium chloride Stopped (11/07/18 1426) ??? atorvastatin 40 mg Oral QPM ??? HYDROmorphone 0.2-0.4 mg Intravenous Once ??? metoprolol tartrate 25 mg Oral BID ??? omeprazole 20 mg Oral QAM AC ??? sodium bicarbonate 650 mg Oral At Bedtime ??? sodium chloride (PF) 3 mL Intracatheter Q8H ??? terazosin 5 mg Oral At Bedtime Data Recent Labs Lab 11/08/18 0340 11/07/18 1500 11/07/18 0950 11/06/18 0415 11/05/18 1635 WBC 11.2* 11.1* 10.4 12.9* 7.3 HGB 11.6* 11.9* 11.5* 12.5* 13.7 MCV 95 95 95 94 94 PLT 82* 87* 82* 153 108* INR -- -- -- -- 1.03 NA 142 -- 147* 142 143 POTASSIUM 4.2 -- 4.1 4.4 4.3 CHLORIDE 111* -- 117* 113* 113* CO2 22 -- 20 21 22 BUN 20 -- 23 27 24 CR 1.29* -- 1.47* 1.57* 1.30* ANIONGAP 9 -- 10 8 8 BALDEMAR 8.2* -- 8.2* 7.8* 8.6 GLC 164* -- 108* 115* 121* ALBUMIN 2.6* -- -- -- -- PROTTOTAL 6.0* -- -- -- -- BILITOTAL 1.1 -- -- -- -- ALKPHOS 62 -- -- -- -- ALT 18 -- -- -- -- AST 19 -- -- -- -- [facility] Bessy Mccray MD - 11/08/2018 8:18 AM CST Vascular Surgery Progress Note Patient doing well, no complaints Lumbar drain pulled this am, remains neuro intact Mild right thigh numbness improving but present since Thursday. B/P: 148/90, T: 98.3, P: 75, R: 22 Alert oriented no acute distress Bilateral groin dressings c/d/i Motor intact Palpable dp bilaterally. WBC Date Value Ref Range Status 11/08/2018 11.2 (H) 4.0 - 11.0 10e9/L Final ] Hemoglobin Date Value Ref Range Status 11/08/2018 11.6 (L) 13.3 - 17.7 g/dL Final ] INR Date Value Ref Range Status 11/05/2018 1.03 0.86 - 1.14 Final Creatinine Date Value Ref Range Status 11/08/2018 1.29 (H) 0.66 - 1.25 mg/dL Final ] Intake/Output Summary (Last 24 hours) at 11/08/2018 0818 Last data filed at 11/08/2018 0800 Gross per 24 hour Intake 3520 ml Output 2735 ml Net 785 ml Assessment/Plan: 78 year old male POD#3 s/p TEVAR for decending thoracic aorta aneurysms Continue close neuro checks after lumbar drain was removed today BP management Pain medication as needed. Anticipate transfer to floor later today Diet as tolerated Dispo to home in next 1-2 days. Bessy Martinez MD Vascular Surgery Fellow Pager [facility] Associated attestation - Butch Brown MD - 11/16/2018 3:00 PM [employer] I was involved with the assessment and plan, and I agree with the findings and plan of care as documented in the fellow's note. MD Michael Castillo Steve William, NP - 11/08/2018 8:01 AM CST ICU Multi-Disciplinary Note Speedy Hendricks is a 78 year old male who presents with with atrial fibrillation, hyperlipidemia, hypertension, and CKD??who had??been recognized as having an??AAA. He underwent a TEVAR with Medtronic graft Patient condition reviewed and discussed while on multidisciplinary rounds today. 1. Lumbar drain pulled this morning, q 30 min to 1 hour neuro checks until this evening. 2. If stable will be able to transfer to floor. The Critical Care service will continue to follow peripherally while the patient is within the ICU. We are readily available should issues arise. Please feel free to contact us for critical care issueswith which we may be of assistance. For all other concerns, please contact primary service first. Kaleb Rodriguez [facility] Kristy Castañeda RN - 11/08/2018 6:50 AM CST [address] Tobin at bedside and removed lumbar drain. Pt tolerated well. Neuro checks q 30 min for the next 6 hours. Dry gaze and Tegaderm to site. Kristy Gamez RN [facility] Zakia Tobin MD - 11/08/2018 6:47 AM CST Anesthesiology Progress Note: S: patient doing well in ICU. Vascular surgery has requested the removal of spinal drain. Removal was delayed yesterday as CSF was drained yesterday morning. No CSF was drained yesterday or overnight. Patient complained of some non-specific back pain and a dull headache, but no reports of lower extremity paresthesias or weakness. Platelet count is still moderately low this morning at 82k, but unchanged from yesterday. I reviewed the MAR and spoke to the ICU nurse who affirms no anticoagulation has been given since the patient's procedure on the . O: neuro checks normal. Spinal drain sight shows slight blood in tubing- unchanged from yesterday. Dried blood around the dressing. A/P: Spinal drain removed, tip intact. Ordered neuro checks q30 mins for 6 hours, then qhr for 6 hours prior to initiating anticoagulation.This plan was communicated with ICU nursing staff. ?? Please call Anesthesia MD and Surgeon with any neuro changes. ?? Zakia Tobin MD. Bart Conklin MD - 11/07/2018 3:39 PM CST Spoke to Dr. Lewis regarding discontinuation of spinal drain. This AM patient had some complaints of leg pain and ICP noted to be elevated and order was given to open and drain 15 ml CSF. He also had some anterior thigh numbness. Currently he has no complaints. Current RN noted a scant amount of hemein spinal drain tubing following unclamping. plts this AM [id number] down from 100s yesterday. At this time, given small amount of heme in tubing combined with plt count under 100k I would recommend waiting overnight and pull drain in AM if plt count improved. Neuro checks should continue. As long as drain remains clamped, patient should not have HOB elevation restrictions and should be ok to sit upright. We will round in the AM and pull drain if patient stable. Updated family to the plan. Questions answered. Signed out to Dr. Tobin overnight and will follow up on platelet count in AM. Please call Anesthesia MD and Surgeon with any neuro changes. Bart Feliciano MD. Christina Polo MD - 11/07/2018 3:03 PM CST VASCULAR SURGERY PROGRESS NOTE Subjective: C/o mild anterior thigh numbness this AM. Currently resolved. OOB to chair. Off pressors. MAPs >100. Denies pain. Objective: Intake/Output Summary (Last 24 hours) at 11/07/2018 1504 Last data filed at 11/07/2018 1200 Gross per 24 hour Intake 3333.89 ml Output 2575 ml Net 758.89 ml Labs: ROUTINE IP LABS (Last four results) BMP Recent Labs Lab 11/07/18 0950 11/06/18 0415 11/05/18 1635 11/05/18 0655 NA 147* 142 143 -- POTASSIUM 4.1 4.4 4.3 4.3 CHLORIDE 117* 113* 113* -- BALDEMAR 8.2* 7.8* 8.6 -- CO2 20 21 22 -- BUN 23 27 24 -- CR 1.47* 1.57* 1.30* 1.52* GLC 108* 115* 121* -- CBC Recent Labs Lab 11/07/18 0950 11/06/18 0415 11/05/18 1635 WBC 10.4 12.9* 7.3 RBC 3.63* 3.93* 4.35* HGB 11.5* 12.5* 13.7 HCT 34.3* 36.8* 40.9 MCV 95 94 94 MCH 31.7 31.8 31.5 MCHC 33.5 34.0 33.5 RDW 14.0 13.2 13.1 PLT 82* 153 108* INR Recent Labs Lab 11/05/18 1635 INR 1.03 PHYSICAL EXAM: BP 146/67 Pulse 74 Temp 99.5 ??F (37.5 ??C) (Oral) Resp 12 Ht 1.676 m (5' 6) Wt 90.5 kg (199 lb 8.3 oz) SpO2 95% BMI 32.20 kg/m?? General: The patient is alert and oriented. Appropriate. No acute distress Psych: pleasant affect, answers questions appropriately Skin: Color appropriate for race, warm, dry. Respiratory: The patient does not require supplemental oxygen. Breathing unlabored GI: Abdomen soft, nontender to light palpation. Extremities: B/L feet warm Neuro: no focal deficits, strength intact in all extremities ASSESSMENT: 78M s/p TEVAR PLAN: Remove lumbar drain today Okay to transfer if drain removed OOB as tolerated Anti-HTN slowly restarted Continue neurovascular checks Christina Burrell MD Vascular Surgery Fellow Pgr Bishop Nunes MD - 11/07/2018 11:55 AM CST Offshoring Manager: S: Mild groin pain this morning, but otherwise no significant complaints. No dyspnea, chest pain, numbness, weakness. O: BP 172/87 Pulse 82 Temp 99.5 ??F (37.5 ??C) (Oral) Resp 28 Ht 1.676 m (5' 6) Wt 90.5 kg (199 lb 8.3 oz) SpO2 96% BMI 32.20 kg/m?? Gen: No acute distress, pleasant // HEENT: PERRL, nose/ears grossly normal // Neck: Supple // Lymph : no cervical adenopathy // chest : CTA-B, unlabored // cor: rrr no m/r/g // abd s/nt/nd // extr: wwpx4, no edema, good distal pulses // neuro: Awake, alert, rapid fluent appropriate speech, good str/sens x4 // skin: No obvious rash Labs (personally reviewed/interpreted): Mild Na elevation 147, creat downtrending to 1.47. Wbc downtrending to 10.4. hgb stable 11.5. pltlts low 82. A/P: 1. Post-TEVAR: Mgmt per vascular surgery and vascular medicine. MAP pushed to 80, but now managing this off of neosynephrine. Lumbar drain management per vascular surgery team. 2. Hypernatremia: Mild, encouraged patient to take plenty of PO free water today. 3. Thrombocytopenia: Etiology unclear--admission pltls were 108, so although 82 is lower than yesterday's 153, that value may have been spuriously inflated. I discussed the possibility of HIT with Dr. Staley, they have a low suspicion and will monitor for one more day prior to testing. 4. DEJA: Improving. Continue to trend creatinine and UOP. D/w patient's family and Dr. Staley of vascular medicine at bedside. Offshoring Manager service will sign off for now. Please re-consult as needed. [employer] Gurwinder Godoy MD - 11/07/2018 9:09 AM CST [facility] Vascular Medicine Progress Note Date of Service (when I saw the patient): 11/07/2018 Critical care time spent 35 minutes today Assessment & Plan Speedy Hendricks is a 78 year old male who was admitted on 11/05/2018. 1. 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 Post-operative cares , spinal drain management per Vascular Surgery service, currently clamped. He should maintain a systolic blood pressure of less than 160 with a goal MAP around 80. If any change in neuro status contact [facility] surgery first and consider neurocritical care to eval this patient. This spinal drain was placed by neuro interventional radiology BP meds held off of osiel and BP is higher than desired, received 3 doses of Labetolol IV this am Mg low side normal, Platelets 108-->153-->82 doubt HIT , will monitor Creat 1.52-->1.30-->1.57--> this am 1.47 hgb 11.5 ( 12.5) He has palpable pedal pulses. Surgical site looks good Reviewed last night events, discussed with Offshoring Manager and ICU nursing staff this am. Patients daughter at bedside , discussedwith her. He is having difficulty in lying down flat , requesting muscle relaxants flexeril 5-10 tid prn Replace mag low dose protocol due to CKD Sodium elevated free water deficit . Encourage po water intake, change IVF NS to D 5 1/2 NS 100 /hr Leave chapman as long as spinal drain in place ?? 2. 46 mm nonruptured fusiform infrarenal AAA, anatomically amenable to endovascular aneurysm repair? Endovascular repair was originally scheduled for 09/28/18, but this was aborted after the finding ofa large thoracic aortic aneurysm??during angiogram.??Eventually, this may need to be repaired. ?? 3.??Chronic atrial fibrillation.? The patient is a 78-year-old white male with renal insufficiency (creatinine 1.52, GFR 44) who has chronic atrial fibrillation and is anticoagulated chronically with apixaban at a reduced dose of 2.5 mg p.o. b.i.d. ??His rate is controlled. ??His CHADS2-VASc score is 4 denoting a 4.8% annual risk of stroke if not anticoagulated. ??As such, he should remain anticoagulated. Currently on hold. His Eliquis will be resumed per protocol once his lumbar drain is removed. ?? 4. ??Hyperlipidemia with LDL goal of less than 70. ? His lipid panel this admission is significant for an LDL of 44. He is therefore at goal and should continue Atorvastatin 40 mg daily. ?? 5. CKD stage 3 ?? His creatinine 1.47 ( 1.52) today. This should be monitored closely given the contrast he received for the procedure . Avoid nephrotoxic meds. ?? Gurwinder Godoy MD,[facility] Vascular Medicine Interval History Reviewed last night events, off of osiel, BP elevated Lumbar/spinal drain clamped and this is managed by vascular surgery He is AAOX3, normal neuro exam Good pulses and surgical site looks good. Physical Exam Temp: 99.2 ??F (37.3 ??C) Temp src: Oral BP: 154/70 Heart Rate: 70 Resp: 19 SpO2: 95 % O2 Device: None (Room air) Vitals: 11/05/18 0627 11/06/18 0211 11/07/18 0600 Weight: 84.3 kg (185 lb 14.4 oz) 89.6 kg (197 lb 8.5 oz) 90.5 kg (199 lb 8.3 oz) Vital Signs with Ranges Temp: [98.4 ??F (36.9 ??C)-99.6 ??F (37.6 ??C)] 99.2 ??F (37.3 ??C) Heart Rate: [51-110] 70 Resp: [9-35] 19 BP: (153-154)/(70-72) 154/70 MAP: [66 mmHg-118 mmHg] 78 mmHg Arterial Line BP: (99-182)/(39-80) 146/49 SpO2: [90 %-98 %] 95 % I/O last 3 completed shifts: In: 3988.12 [P.O.:660; I.V.:2828.12; IV Piggyback:500] Out: 2902 [Urine:2885; Drains:17] Constitutional: Awake, alert, cooperative, no apparent distress, and appears stated age. Eyes: Lids and lashes normal, pupils equal, round and reactive to light, extra ocular muscles intact, sclera clear, conjunctiva normal. ENT: Normocephalic, without obvious abnormality Respiratory: No increased work of breathing, good air exchange, clear to auscultation bilaterally, no crackles or wheezing. Cardiovascular: a fib, irregularly irregular GI: normal bowel sounds, soft, non-distended, non-tender, no masses palpated, no hepatosplenomegaly. Lymph/Hematologic: No cervical lymphadenopathy and no supraclavicular lymphadenopathy. Genitourinary: Chapman in place Skin: surgical site looks good , no hematoma etc Musculoskeletal: There is no redness, warmth, or swelling of the joints. Full range of motion noted.Motor strength is 5 out of 5 all extremities bilaterally. Tone is normal. Neurologic: Awake, alert, oriented to name, place and time. Cranial nerves II- XII are grossly intact. BLE good sensation Neuropsychiatric: Calm, normal eye contact, alert, normal affect, oriented to self, place, time and situation, memory for past and recent events intact and thought process normal. Pulses: palpable pedal pulses. Medications ??? phenylephrine IV infusion ADULT Stopped (11/06/181939) ??? sodium chloride 100 mL/hr at 11/06/181947 ??? atorvastatin 40 mg Oral QPM ??? HYDROmorphone 0.2-0.4 mg Intravenous Once ??? metoprolol tartrate 25 mg Oral BID ??? sodium bicarbonate 650 mg Oral At Bedtime ??? sodium chloride (PF) 3 mL Intracatheter Q8H ??? terazosin 5 mg Oral At Bedtime Data Recent Labs Lab 11/06/18 0415 11/05/18 1635 11/05/18 0655 WBC 12.9* 7.3 -- HGB 12.5* 13.7 -- MCV 94 94 -- PLT 153 108* -- INR -- 1.03 -- NA 142 143 -- POTASSIUM 4.4 4.3 4.3 CHLORIDE 113* 113* -- CO2 21 22 -- BUN 27 24 -- CR 1.57* 1.30* 1.52* ANIONGAP 8 8 -- BALDEMAR 7.8* 8.6 -- GLC 115* 121* -- RVISOR AREA Danette Peck RN - 11/07/2018 8:50 AM CST 0800: pt cont with bilateral anterior mid thigh numbness and soreness in muscles just above the knee. Pt stated he had chills once during noct. No headache now. SCP ~ 12 at rest. Dressing unchanged. Slight amt blood in tubing. Strength and hip flexion same. Pt wants to sleep. I: Cont to monitor CV: Labetalol X1 to keep SBP <160 and MAP >80. [employer] Gurwinder Godoy MD - 11/06/2018 12:00 PM CST [facility] Vascular Medicine Progress Note Date of Service (when I saw the patient): 11/06/2018 Critical care time spent 35 minutes today Assessment & Plan Speedy Hendricks is a 78 year old male who was admitted on 11/05/2018. 1. Descending 5.0 cm thoracic aortic aneurysm s/p endovascular repair with Medtronic graft ( TEVAR) 11/05/18 POD 1 ?? Post-operative cares , spinal drain management per Vascular Surgery, currently clamped. He should maintain a systolic blood pressure of less than 160 with a goal MAP around 80. BP meds held, restart once osiel off to maintain MAP and SBP Currently requiring osiel to maintain MAP He has palpable pedal pulses. Surgical site looks good Reviewed last night events, discussed with vascular surgery Fellow and ICU nursing staff this am. HGB stable creat 1.52 same as admission range Leave chapman as long as spinal drain in place ?? 2. 46 mm nonruptured fusiform infrarenal AAA, anatomically amenable to endovascular aneurysm repair? Endovascular repair was originally scheduled for 09/28/18, but this was aborted after the finding ofa large thoracic aortic aneurysm??during angiogram.??Eventually, this may need to be repaired. ?? 3.??Chronic atrial fibrillation.? The patient is a 78-year-old white male with renal insufficiency (creatinine 1.52, GFR 44) who has chronic atrial fibrillation and is anticoagulated chronically with apixaban at a reduced dose of 2.5 mg p.o. b.i.d. ??His rate is controlled. ??His CHADS2-VASc score is 4 denoting a 4.8% annual risk of stroke if not anticoagulated. ??As such, he should remain anticoagulated. His Eliquis will be resumed per protocol once his lumbar drain is removed. ?? 4. ??Hyperlipidemia with LDL goal of less than 70. ? His lipid panel this admission is significant for an LDL of 44. He is therefore at goal and should continue Atorvastatin 40 mg daily. ?? 5. CKD stage 3 ?? His creatinine was 1.52 today. This should be monitored closely given the contrast he received for the procedure . Avoid nephrotoxic meds. ?? Gurwinder Godoy MD,[facility] Vascular Medicine Interval History Reviewed last night events, currently on osiel to maintain MAP Lumbar/spinal drain clamped and this is managed by vascular surgery He is AAOX3, normal neuro exam Good pulses and surgical site looks good. Creat 1.57 ( 1.30<-- 1.52) HGB 12.5 Physical Exam Temp: 98.6 ??F (37 ??C) Temp src: Oral BP: 105/59 Pulse: 58 Heart Rate: 58 Resp: 15 SpO2: 92 % O2 Device: None (Room air) Oxygen Delivery: 2 LPM Vitals: 11/05/18 0627 11/06/18 0211 Weight: 84.3 kg (185 lb 14.4 oz) 89.6 kg (197 lb 8.5 oz) Vital Signs with Ranges Temp: [97 ??F (36.1 ??C)-98.6 ??F (37 ??C)] 98.6 ??F (37 ??C) Pulse: [49-71] 58 Heart Rate: [48-89] 58 Resp: [8-58] 15 BP: (105-164)/(59-95) 105/59 MAP: [61 mmHg-135 mmHg] 81 mmHg Arterial Line BP: (97-188)/(37-91) 139/50 SpO2: [92 %-100 %] 92 % I/O last 3 completed shifts: In: 4642.67 [P.O.:240; I.V.:4402.67] Out: 1560 [Urine:1545; Drains:5; Other:10] Constitutional: Awake, alert, cooperative, no apparent distress, and appears stated age. Eyes: Lids and lashes normal, pupils equal, round and reactive to light, extra ocular muscles intact, sclera clear, conjunctiva normal. ENT: Normocephalic, without obvious abnormality Respiratory: No increased work of breathing, good air exchange, clear to auscultation bilaterally, no crackles or wheezing. Cardiovascular: a fib, irregularly irregular GI: normal bowel sounds, soft, non-distended, non-tender, no masses palpated, no hepatosplenomegaly. Lymph/Hematologic: No cervical lymphadenopathy and no supraclavicular lymphadenopathy. Genitourinary: Chapman in place Skin: surgical site looks good , no hematoma etc Musculoskeletal: There is no redness, warmth, or swelling of the joints. Full range of motion noted.Motor strength is 5 out of 5 all extremities bilaterally. Tone is normal. Neurologic: Awake, alert, oriented to name, place and time. Cranial nerves II- XII are grossly intact. Neuropsychiatric: Calm, normal eye contact, alert, normal affect, oriented to self, place, time and situation, memory for past and recent events intact and thought process normal. Pulses: palpable pedal pulses. Medications ??? phenylephrine IV infusion ADULT 1.7 mcg/kg/min (11/06/18 1112) ??? sodium chloride 100 mL/hr at 11/06/18 0233 ??? atorvastatin 40 mg Oral QPM ??? HYDROmorphone 0.2-0.4 mg Intravenous Once ??? metoprolol tartrate 25 mg Oral BID ??? sodium bicarbonate 650 mg Oral At Bedtime ??? sodium chloride (PF) 3 mL Intracatheter Q8H ??? terazosin 5 mg Oral At Bedtime Data Recent Labs Lab 11/06/18 0415 11/05/18 1635 11/05/18 0655 WBC 12.9* 7.3 -- HGB 12.5* 13.7 -- MCV 94 94 -- PLT 153 108* -- INR -- 1.03 -- NA 142 143 -- POTASSIUM 4.4 4.3 4.3 CHLORIDE 113* 113* -- CO2 21 22 -- BUN 27 24 -- CR 1.57* 1.30* 1.52* ANIONGAP 8 8 -- BALDEMAR 7.8* 8.6 -- GLC 115* 121* -- RVISOR AREA Millie Handley APRN [employer] CONSULTANT - 11/06/2018 11:55 AM CST Critical Care Progress Note 11/06/2018 Name: Speedy Hendricks Age: [age] year old Date of : 1940 [facility] Day# 1 ICU DAY # 1 MV DAY # NA Problem List: Active Problems: Thoracic aortic aneurysm (H) POD# 1 TEVAR Afib HTN HLD Summary/Hospital Course: 78 yo M s/p TEVAR for descending thoracic aneurysm with Medtronic graft. Needed close monitoring of BP with ranges delineated by vascular medicine and spinal drain management per vascular surgery so hewas admitted to ICU post procedure yesterday ?? Assessment and plan : Speedy Hendricks IS a 78 year old male admitted on 11/05/2018 for elective TEVAR for descending thoracic aortic aneurysm. I have personally reviewed the daily labs, imaging studies, cultures and discussed the case with referring physician and consulting physicians. My assessment and plan by system for this patient is as follows: Neurology: 1. Acute pain 2. Lumbar drain with spinal drain ?? Plan: -- Scheduled acetaminophen and oxycodone (low dose). -- Propofol for sedation as needed until extubation -- Lumbar spinal drain: Set to 10cm water -Drain to remain closed. Open if deficits arise or ICP >15 and symptomatic -No more than 15 mL to drain in an hour, if needed clamp then reopen at the following hour Cardiovascular: CV 1. Descending??5.0 cm thoracic aortic aneurysm s/p endovascular repair 11/05/18 2. 46 mm nonruptured fusiform infrarenal AAA, anatomically amenable to endovascular aneurysm repair 3. Chronic Atrial fibrillation- anticoagulated chronically with apixaban 4. HTN 5. HLD ?? Plan: Vascular Surgery and Medicine following -Keep SBP less than 160 and MAP >80 range. -Terazosin 5 mg -Hold PO metoprolol scheduled for now, reassess this evening. - Lipitor 40 mg - Hold anticoagulation - Hold lasix, Defer further BP control to vascular Pulmonary/Ventilator Management: 1.no issues Plan -- pulm hygiene -- Supplemental O2 to maintain SpO2 >90% GI/Nutrition 1. No acute issues Plan: -- Clear liquid diet ?? Renal 1. CKD Plan: --monitor function and electrolytes as needed with replacement per ICU protocols. -- generally avoid nephrotoxic agents such as NSAID, IV contrast unless specifically required -- adjust medications as needed for renal clearance -- follow I/O's as appropriate. -- maintain euvolemia Infectious Disease: No issues Hematology/Oncology: 1. Coagulopathy Plan: -- Monitor hemoglobin, plt. MSKL/Rheum: Bedrest per vasc team LP per vasc surgery General cares: DVT Prophylaxis: Pneumatic Compression Devices GI Prophylaxis: Not indicated Restraints: Restraints for medical healing needed: NO Souza Medications: ??? atorvastatin 40 mg Oral QPM ??? HYDROmorphone 0.2-0.4 mg Intravenous Once ??? metoprolol tartrate 25 mg Oral BID ??? sodium bicarbonate 650 mg Oral At Bedtime ??? sodium chloride (PF) 3 mL Intracatheter Q8H ??? terazosin 5 mg Oral At Bedtime ??? phenylephrine IV infusion ADULT 1.7 mcg/kg/min (11/06/18 1112) ??? sodium chloride 100 mL/hr at 11/06/18 0233 Physical Examination: Temp: [97 ??F (36.1 ??C)-98.6 ??F (37 ??C)] 98.6 ??F (37 ??C) Pulse: [49-71] 58 Heart Rate: [48-89] 58 Resp: [8-58] 15 BP: (105-164)/(59-95) 105/59 MAP: [61 mmHg-135 mmHg] 81 mmHg Arterial Line BP: (97-188)/(37-91) 139/50 SpO2: [92 %-100 %] 92 % Intake/Output Summary (Last 24 hours) at 11/06/2018 1156 Last data filed at 11/06/2018 1100 Gross per 24 hour Intake 2904.82 ml Output 1617 ml Net 1287.82 ml Wt Readings from Last 4 Encounters: 11/06/18 89.6 kg (197 lb 8.5 oz) 09/29/18 85.2 kg (187 lb 12.8 oz) 07/01/18 86.2 kg (190 lb) 06/03/18 86.2 kg (190 lb) Arterial Line BP: (97-188)/(37-91) 139/50 MAP: [61 mmHg-135 mmHg] 81 mmHg BP - Mean: [80-122] 80 CVP: [2 mmHg-17 mmHg] 7 mmHg Resp: 15 No lab results found in last 7 days. GEN: no acute distress laying flat in bed HEENT: head ncat, sclera anicteric, OP patent, trachea midline PULM: CTA CV/COR: RRR ABD: soft nontender, hypoactive bowel sounds EXT: Edema warm NEURO: grossly intact SKIN: no obvious rash LINES: clean, dry intact LP drain clamped Data: All data and imaging reviewed ROUTINE ICU LABS (Last four results) CMP Recent Labs Lab 11/06/18 0415 11/05/18 1635 11/05/18 0655 NA 142 143 -- POTASSIUM 4.4 4.3 4.3 CHLORIDE 113* 113* -- CO2 21 22 -- ANIONGAP 8 8 -- GLC 115* 121* -- BUN 27 24 -- CR 1.57* 1.30* 1.52* GFRESTIMATED 42* 53* 44* GFRESTBLACK 49* 61 51* BALDEMAR 7.8* 8.6 -- CBC Recent Labs Lab 11/06/18 0415 11/05/18 1635 WBC 12.9* 7.3 RBC 3.93* 4.35* HGB 12.5* 13.7 HCT 36.8* 40.9 MCV 94 94 MCH 31.8 31.5 MCHC 34.0 33.5 RDW 13.2 13.1 PLT 153 108* INR Recent Labs Lab 11/05/18 1635 INR 1.03 Arterial Blood GasNo lab results found in last 7 days. All cultures: No results for input(s): CULT in the last 168 hours. No results found for this or any previous visit (from the past 24 hour(s)). Billing: This patient is critically ill: Yes. Total critical care time today 35 min. RVISOR AREA Associated attestation - Bishop Tran MD - 11/12/2018 10:50 AM SUPERVISOR AREA Physician Attestation I, Bishop Tran, have reviewed and discussed with the advanced practice provider their history, physical and plan for Speedy Hendricks. This should be billed as an advanced practice provider only visit. 78M s/p TEVAR, on osiel for a map push. Doing well on room air. Labs ok--creat slightly up to 1.5 range but still making sufficient urine. Continue plan as documented in NIGHT CLUB MANAGER note. The patient does not seem to be coagulopathic on my assessment. Christina Gannon MD - 11/06/2018 10:54 AM CST VASCULAR SURGERY PROGRESS NOTE Subjective: Started osiel overnight for MAP goals. No complaints this AM. Denies pain or weakness. Lumbar drain opened for ICP >15. Drained 2cc. Objective: Intake/Output Summary (Last 24 hours) at 11/06/2018 1054 Last data filed at 11/06/2018 1000 Gross per 24 hour Intake 3961.24 ml Output 1987 ml Net 1974.24 ml Labs: ROUTINE IP LABS (Last four results) BMP Recent Labs Lab 11/06/18 0415 11/05/18 1635 11/05/18 0655 NA 142 143 -- POTASSIUM 4.4 4.3 4.3 CHLORIDE 113* 113* -- BALDEMAR 7.8* 8.6 -- CO2 21 22 -- BUN 27 24 -- CR 1.57* 1.30* 1.52* GLC 115* 121* -- CBC Recent Labs Lab 11/06/18 0415 11/05/18 1635 WBC 12.9* 7.3 RBC 3.93* 4.35* HGB 12.5* 13.7 HCT 36.8* 40.9 MCV 94 94 MCH 31.8 31.5 MCHC 34.0 33.5 RDW 13.2 13.1 PLT 153 108* INR Recent Labs Lab 11/05/18 1635 INR 1.03 PHYSICAL EXAM: BP 105/59 Pulse 58 Temp 98.6 ??F (37 ??C) (Oral) Resp 15 Ht 1.676 m (5' 6) Wt 89.6 kg (197 lb 8.5 oz) SpO2 95% BMI 31.88 kg/m?? General: The patient is alert and oriented. Appropriate. No acute distress Psych: pleasant affect, answers questions appropriately Skin: Color appropriate for race, warm, dry. Respiratory: The patient does not require supplemental oxygen. Breathing unlabored GI: Abdomen soft, nontender to light palpation. Extremities: B/L groins intact, no hematoma, B/L pedal pulses palpable Neuro: no focal deficits, strength/sensation intact in all extremities ASSESSMENT: 78M POD1 s/p TEVAR PLAN: Clamp lumbar drain - unclamp for changes in neuro exam Continue MAP goal to 80 Okay to sit up Regular diet Continue neurovascular checks Monitor UOP and Cr Christina Burrell MD Vascular Surgery Fellow Pgr Danette Cleveland RN - 11/06/2018 9:15 AM CST 0845: While leveled, asleep and lying on L, SCP Increased to 15-23. I: opened drain for 5 min resulting in 2cc clear liquid. I: Clamped. E: SCP decreased to 14. Turned to R side, SCP 3-7. Michelle Jones - 11/05/2018 6:05 AM CST Admission medication history interview status for the 11/05/2018 admission is complete. See [facility] admission navigator for prior to admission medications Medication history source reliability:Good Medication history interview source(s):Patient Medication history resources (including written lists, pill bottles, clinic record):Patient mailed in his medication list prior to surgery Primary pharmacy.[facility] Additional medication history information not noted on [employer] med list :None Time spent in this activity: 40 minutes Prior to Admission medications Medication Sig Last Dose Taking? Auth Provider acetaminophen (TYLENOL) 500 MG tablet Take 500 mg by mouth 3 times daily as needed for mild pain 11/04/2018 at 2200 Yes Reported, Patient apixaban ANTICOAGULANT (ELIQUIS) 2.5 MG tablet Take 1 tablet (2.5 mg) by mouth 2 times daily 10/30/2018 at PM Yes Luis Antonio Quintanilla MD atorvastatin (LIPITOR) 40 MG tablet Take 1 tablet (40 mg) by mouth daily Patient taking differently: Take 40 mg by mouth every evening 11/04/2018 at 1800 Yes Adrian Pleitez MD furosemide (LASIX) 20 MG tablet Take 20 mg by mouth daily 11/04/2018 at 0800 Yes Reported, Patient lisinopril (PRINIVIL/ZESTRIL) 10 MG tablet Take 5 mg by mouth 2 times daily (0.5 x 10 mg = 5 mg dose) 11/05/2018 at 0400 Yes Reported, Patient metoprolol tartrate (LOPRESSOR) 50 MG tablet Take 50 mg by mouth 2 times daily 11/05/2018 at 0400 YesReported, Patient sodium bicarbonate 650 MG tablet Take 650 mg by mouth At Bedtime 10/30/2018 at PM Yes Reported, Patient terazosin (HYTRIN) 5 MG capsule Take 5 mg by mouth At Bedtime 11/04/2018 at 2200 Yes Reported, Patient RV[employer]OR AREA documented in this encounter Procedure Notes Missael Garcia MD - 11/05/2018 9:12 AM CST Interventional Neuroradiology Post Procedure Patient Name: Speedy Hendricks Date of Procedure: November 05, 2018 Procedure: Lumbar drain placement Radiologist: Missael Garcia Contrast: none Fluoro Time: 1.9 minutes Air Kerma: 115.01 mGy Medications: Versed 1 mg IV Fentanyl 50 mcg IV Sedation Time: 15 minutes EBL: min Complications: none Patient reevaluated immediately prior to sedation and prior to procedure. Preliminary Report: (See dictation for full detail) Lumbar drain placed via L2-3 access, tip at T9, free flow of clear CSF Assess/Plan: To OR for TVAR Drain closed for transport. Drain management per anethesia/vasc surg Missael Garcia MD [phone] RVISOR AREA documented in this encounter Consult Notes Kaleb Rodriguez NP - 11/05/2018 5:14 PM CSTAssociated Order(s): [employer] IP CONSULT [facility] Consult Critical Care Service Date of Admission: 11/05/2018 Date of Service (when I saw the patient): 11/05/18 Assessment & Plan Speedy Hendricks is a 78 year old male who presents with with atrial fibrillation, hyperlipidemia, hypertension, and CKD who had been recognized as having an AAA. He underwent a TEVAR with Medtronic graft today. Neuro 1. Acute pain 2. Lumbar drain with spinal drain Plan: -- Scheduled acetaminophen and oxycodone (low dose). -- Propofol for sedation as needed until extubation -- Lumbar spinal drain: Set to 10cm water -Drain to remain closed. Open if deficits arise or ICP >15 and symptomatic -No more than 15 mL to drain in an hour, if needed clamp then reopen at the following hour CV 1. Descending 5.0 cm thoracic aortic aneurysm s/p endovascular repair 11/05/18 2. 46 mm nonruptured fusiform infrarenal AAA, anatomically amenable to endovascular aneurysm repair 3. Chronic Atrial fibrillation- anticoagulated chronically with apixaban 4. HTN 5. HLD Plan: Vascular Surgery and Medicine following -Keep SBP less than 160 and MAP >80 range. -Follow arterail line readings which is correlating with cuff BP this afternoon. -First line of BP management IV labeolol if HR permits 2nd line IV Hydralazine. If remains uncontrolled; start esmolol if HR tolerates -Terazosin 5 mg -Hold PO metoprolol scheduled for now, reassess this evening. - Lipitor 40 mg - Hold anticoagulation - Hold lasix, Defer further BP control to vascular Resp: 1. No acute issues Plan: -- Pulmonary hygiene -- Supplemental O2 to maintain SpO2 >90% GI/Nutrition 1. No acute issues Plan: -- Clear liquid diet Renal 1. CKD Plan: --monitor function and electrolytes as needed with replacement per ICU protocols. -- generally avoid nephrotoxic agents such as NSAID, IV contrast unless specifically required -- adjust medications as needed for renal clearance -- follow I/O's as appropriate. -- maintain euvolemia ID 1. No acute issues Endocrine 1. Stress Hyperglycemia Plan: -- sliding scale insulin per protocol if indicated -- Keep BG <180 for optimal healing Heme: 1. Coagulopathy Plan: -- Monitor hemoglobin, plt. MSK 1. No acute issues Plan: --Maintain bedrest Skin 1. No acute issues General cares: DVT Prophylaxis: Pneumatic Compression Devices GI Prophylaxis: Not indicated Restraints: Restraints for medical healing needed: NO Family update by me today: Yes Current lines are required for patient management Access: Kaleb Rodriguez Time Spent on this Encounter Billing: I spent 45 minutes bedside and on the inpatient unit today managing the critical care of Speedy Hendricks in relation to the issues listed in this note. Code Status Full Code Primary Care Physician [facility] Chief Complaint S/p TEVAR History of Present Illness See above Past Medical History I have reviewed this patient's medical history and updated it with pertinent information if needed. Past Medical History: Diagnosis Date ??? AAA [...] ischemia ??? Transient cerebral ischemia Past Surgical History I have reviewed this patient's surgical history and updated it with pertinent information if needed. Past Surgical History: Procedure Laterality Date ??? ANGIOGRAM N/A 09/28/2018 Procedure: BILATERAL FEMORAL CUTDOWN WITH ANGIOGRAM; Surgeon: Juan Lewis MD; Location: OR ??? APPENDECTOMY ??? BACK SURGERY lumbar fusion x2 ??? BACK SURGERY cervical fusion C7 ??? COLONOSCOPY 2012 polyps ??? ENT SURGERY tonsils ??? EXCISE TOENAIL(S) 09/30/2012 Procedure: EXCISE TOENAIL(S);; Surgeon: Sal Chaparro DPM; Location: [facility] OR ? ? HEAD & NECK SURGERY cervical fusion ??? IR ABDOMINAL ENDOVASCULAR STENT GRAFT 09/28/2018 ??? IR LUMBAR DRAIN PLACEMENT W FLUORO 11/05/2018 ??? ORTHOPEDIC SURGERY left foot surg ??? ORTHOPEDIC SURGERY cervical fusion x2 ??? REMOVE HARDWARE FOOT 09/30/2012 Procedure: REMOVE HARDWARE FOOT; hardware removel left foot; Surgeon: Sal Chaparro DPM; Location: [facility] OR ??? THORACIC SURGERY left lung surg decortifcation ??? VASCULAR SURGERY AAA ??? wisdom teeth[ Prior to Admission Medications Prior to Admission Medications Prescriptions Last Dose Informant Patient Reported? Taking? acetaminophen (TYLENOL) 500 MG tablet 11/04/2018 at 2200 Self Yes Yes Sig: Take 500 mg by mouth 3 times daily as needed for mild pain apixaban ANTICOAGULANT (ELIQUIS) 2.5 MG tablet 10/30/2018 at PM Self No Yes Sig: Take 1 tablet (2.5 mg) by mouth 2 times daily atorvastatin (LIPITOR) 40 MG tablet 11/04/2018 at 1800 Self No Yes Sig: Take 1 tablet (40 mg) by mouth daily Patient taking differently: Take 40 mg by mouth every evening furosemide (LASIX) 20 MG tablet 11/04/2018 at 0800 Self Yes Yes Sig: Take 20 mg by mouth daily lisinopril (PRINIVIL/ZESTRIL) 10 MG tablet 11/05/2018 at 0400 Self Yes Yes Sig: Take 5 mg by mouth 2 times daily (0.5 x 10 mg = 5 mg dose) metoprolol tartrate (LOPRESSOR) 50 MG tablet 11/05/2018 at 0400 Self Yes Yes Sig: Take 50 mg by mouth 2 times daily sodium bicarbonate 650 MG tablet 10/30/2018 at PM Self Yes Yes Sig: Take 650 mg by mouth At Bedtime terazosin (HYTRIN) 5 MG capsule 11/04/2018 at 2200 Self Yes Yes Sig: Take 5 mg by mouth At Bedtime Facility-Administered Medications: None Allergies Allergies Allergen Reactions ??? Blood Transfusion Related (Informational Only) Other (See Comments) Patient has a history of a clinically significant antibody against RBC antigens. A delay in compatible RBCs may occur. ??? Norvasc [Amlodipine] ??? Novocain [Procaine Hcl] Bumps in throat ??? Penicillins Rash Social History I have reviewed this patient's social history and updated it with pertinent information if needed. Speedy Hendricks reports that he quit smoking about 33 years ago. His smoking use included cigarettes. He smoked 0.25 packs per day. he has never used smokeless tobacco. He reports that he drinks alcohol.He reports that he does not use drugs. Family History I have reviewed this patient's family history and updated it with pertinent information if needed. Family History Problem Relation Age of Onset ??? Abdominal Aortic Aneurysm Father from AAA at age 61 ??? Hypertension Father ??? Breast Cancer Mother ??? Coronary Artery Disease Brother ??? Hypertension Brother ??? Hyperlipidemia Brother ??? Hyperlipidemia Daughter Review of Systems The 10 point Review of Systems is negative other than noted in the HPI Physical Exam Temp: 97.3 ??F (36.3 ??C) Temp src: Oral Temp Min: 97 ??F (36.1 ??C) Max: 98.1 ??F (36.7 ??C) BP: 108/61 Pulse: 58 Heart Rate: 69 Resp: 16 SpO2: 98 % O2 Device: Nasal cannula Oxygen Delivery: 2 LPM Vital Signs with Ranges Temp: [97 ??F (36.1 ??C)-98.1 ??F (36.7 ??C)] 97.3 ??F (36.3 ??C) Pulse: [49-71] 58 Heart Rate: [48-76] 69 Resp: [9-24] 16 BP: (108-165)/(61-95) 108/61 MAP: [81 mmHg-135 mmHg] 81 mmHg Arterial Line BP: (127-188)/(57-91) 127/57 SpO2: [93 %-100 %] 98 % 185 lbs 14.4 oz Exam: Constitutional: healthy, alert and no distress Head: Normocephalic. No masses, lesions, tenderness or abnormalities Neck: Neck supple. No adenopathy. Thyroid symmetric, normal size,, Carotids without bruits. ENT: ENT exam normal, no neck nodes or sinus tenderness Cardiovascular: negative, PMI normal. No lifts, heaves, or thrills. RRR. No murmurs, clicks gallops or rub Respiratory: negative, Percussion normal. Good diaphragmatic excursion. Lungs clear Gastrointestinal: Abdomen soft, non-tender. BS normal. No masses, organomegaly : Deferred Musculoskeletal: extremities normal- no gross deformities noted, gait normal and normal muscle tone Skin: no suspicious lesions or rashes Neurologic: Reflexes normal and symmetric. Sensation grossly WNL. Psychiatric: mentation appears normal and affect normal/bright Hematologic/Lymphatic/Immunologic: Normal cervical lymph nodes Data Results for orders placed or performed during the hospital encounter of 11/05/18 (from the past 24 hour(s)) XR Chest Port 1 View Narrative XR CHEST PORTABLE 1 VIEW 11/05/2018 6:40 AM HISTORY: Preoperative TEVAR. COMPARISON: 11/29/2017. FINDINGS: Upright portable chest. The heart size is normal. The thoracic aorta is calcified. There is again aneurysmal dilatation of the descending thoracic aorta. There is scarring in the left lung. The lungs are otherwise clear. No pneumothorax. Postoperative changes in the cervical spine. Overall, no significant interval change. Impression IMPRESSION: No acute abnormality. TORI SANTIZO MD Creatinine Result Value Ref Range Creatinine 1.52 (H) 0.66 - 1.25 mg/dL GFR Estimate 44 (L) >60 mL/min/[1.73_m2] GFR Estimate If Black 51 (L) >60 mL/min/[1.73_m2] Hemoglobin A1c Result Value Ref Range Hemoglobin A1C 5.2 0 - 5.6 % Lipid panel Result Value Ref Range Cholesterol 128 <200 mg/dL Triglycerides 125 <150 mg/dL HDL Cholesterol 59 >39 mg/dL LDL Cholesterol Calculated 44 <100 mg/dL Non HDL Cholesterol 69 <130 mg/dL Potassium Result Value Ref Range Potassium 4.3 3.4 - 5.3 mmol/L EKG 12-lead, tracing only Result Value Ref Range Interpretation ECG Click View Image link to view waveform and result IR Lumbar Drain Placement w Fluoro Narrative [facility] INTERVENTIONAL NEURORADIOLOGY PROCEDURAL NOTE FLUOROSCOPICALLY GUIDED PERCUTANEOUS LUMBAR DRAINAGE CATHETER PLACEMENT INDICATION: Scheduled for TVAR today. Needs preoperative lumbar drain.. CONSENT: The procedure and its indications, major risks, benefits, and alternatives were discussed. Risks including, but not limited to, pain, headache, hemorrhage, infection, nerve damage, spinal cord damage, and allergic reaction were discussed. Understanding was acknowledged, and a signed informed consent was obtained. MODERATE SEDATION: Versed 1 mg. Fentanyl 50 mcg. The procedure was performed with the administration of intravenous conscious sedation with appropriate preoperative, intraoperative, and postoperative evaluation. 15 minutes of supervised face to face conscious sedation time was provided by a radiology nurse under my direct supervision. During the time-out, immediately prior to administration of medications, the patient was re-assessed for adequacy to receive conscious sedation. MEDICATIONS: Versed 1 mg IV Fentanyl 50 mcg IV FLUOROSCOPIC TIME: 1.9 minutes DOSE: Air Kerma: 115.01 mGy ESTIMATED BLOOD LOSS: Minimal PROCEDURE: PROCEDURE: The patient was placed in the prone position upon the fluoroscopic table. The skin of the back was prepped and draped in sterile fashion. Using fluoroscopic guidance, the L2-3 level was localized. The skin was infiltrated with 1% lidocaine. Using direct fluoroscopic visualization a 14 gauge Tuohy needle was advanced into the thecal sac at the L2-3 level. A lumbar drainage catheter was then advanced through the needle until its tip was present in the thecal sac at the T9 level. The needle and stiffener wire were removed. Clear spinal fluid return from the catheter was noted. The catheter was secured to the skin with a suture, and then connected to a drainage bag. The procedure appeared well-tolerated. There was no apparent complication. CONCLUSION: 1. Technically successful fluoroscopically-guided percutaneous placement of a lumbar drainage catheter via L2-3 access, tip at T9. CPT codes included for physician reference only: [id number] MISSAEL GARCIA MD Glucose by meter Result Value Ref Range Glucose 124 (H) 70 - 99 mg/dL [facility] Associated attestation - Olive Bello MD - 11/05/2018 10:58 PM SUPERVISOR AREA ICU STAFF: I have discussed Mr. Hendricks's case with Kaleb Rodriguez NP and the vascular surgery and vascular medicine teams, reviewed the patient's radiographic and laboratory data and met with him. I agree with the findings, assessment and recommendations as outlined below by Mr. Rodriguez. 78 yo M s/p TEVAR for descending thoracic aneurysm with Medtronic graft. Needs close monitoring of BP with ranges delineated by vascular medicine and spinal drain management per vascular surgery. Olive Bello MD #[id number] 11/05/18 Bill as Advanced Practice Provider only. Gurwinder Godoy MD - 11/05/2018 1:40 PM CST [facility] Vascular Medicine Consultation Date of Admission: 11/05/2018 Date of Consult (When I saw the patient): 11/05/18 Physician Supervisory Attestation: I have reviewed and discussed with the physician assistant food service director their history, physical and plan and independently interviewed and examined Speedy Hendricks and agree with the plan as stated in the physicianassistant note. Speedy Hendricks is a 78 year old currently nonsmoking white male with atrial fibrillation, hyperlipidemia, hypertension, and CKD who had been recognized as having an AAA. He was measuring 46 mm in size. He has a brother who of a ruptured AAA. As such, he wished to proceed with endovascular aneurysm repair himself. He was taken to the OR on 09/28/18, but the procedure was aborted once the initialangiogram demonstrated a larger (50 mm) descending thoracic aortic aneurysm. Today he underwent successful TEVAR with Medtronic graft. No endoleak palpable DP bilaterally Surgical site dressing intact, dry. He was initially seen in PACU then in ICU. Discussed with ICU nursing staff and Dr. Bello He has spinal drain in place ( discussed with vascular fellow Dr. Mccray, No more than 15 mL to drain in an hour, if so clamp then reopen at the following hour Set to 10cm water) Keep SBP less than 160 and MAP >80 range. Follow arterail line readings which is correlating withcuff BP this afternoon. First line of BP management IV labeolol if HR permits 2nd line IV Hydralazine He was taking metoprolol 25 bid at home, restarted starting tonight. He was placed on low dose IV metoprolol 5 mg q 6hrs by vascular surgery fellow. Spinal drain management per vascular surgery service. Hold anticoagulation next 2-3 days. Monitor renal Fx Restart atorvastatin 40 mg daily Critical care time spent 60 minutes today Thank you for the consult Copy to Dr. Debbie Godoy MD ,[facility] Vascular Medicine 11/05/2018 Assessment & Plan 1. 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 He does have a lumbar drain in place and will be going tothe intensive care unit for close monitoring. He should maintain a systolic blood pressure of less than 160 with a goal MAP around 80. IV metoprolol has been scheduled at 5 mg every 6 hours and IV labetalol can be given PRN for SBP > 160. He has palpable pedal pulses. 2. 46 mm nonruptured fusiform infrarenal AAA, anatomically amenable to endovascular aneurysm repair ?? Endovascular repair was originally scheduled for 09/28/18, but this was aborted after the finding ofa large thoracic aortic aneurysm during angiogram. Eventually, this may need to be repaired. ?? 3. Chronic atrial fibrillation. ? The patient is a 78-year-old white male with renal insufficiency (creatinine 1.52, GFR 44) who has chronic atrial fibrillation and is anticoagulated chronically with apixaban at a reduced dose of 2.5 mg p.o. b.i.d. His rate is controlled. His CHADS2-VASc score is 4 denoting a 4.8% annual risk of stroke if not anticoagulated. As such, he should remain anticoagulated. His Eliquis will be resumed once his lumbar drain is removed. ?? 4. ??Hyperlipidemia with LDL goal of less than 70. ? His lipid panel this admission is significant for an LDL of 44. He is therefore at goal and should continue Atorvastatin 40 mg daily. ?? 5. CKD stage 3 ?? His creatinine was 1.52 today. This should be monitored closely given the contrast he received for the procedure. Continue gentle hydration. Reason for Consult Reason for consult: Asked by Dr. Lewis/Dr. Brown to evaluate vascular risk factors and assist with medical management in this 78 year old male Primary Care Physician [facility] History of Present Illness Speedy Hendricks is a 78 year old currently nonsmoking white male with atrial fibrillation, hyperlipidemia, hypertension, and CKD who had been recognized as having an AAA. He was measuring 46 mm in size. He has a brother who of a ruptured AAA. As such, he wished to proceed with endovascular aneurysm repair himself. He was taken to the OR on 09/28/18, but the procedure was aborted once the initialangiogram demonstrated a larger (50 mm) descending thoracic aortic aneurysm. He now returns for endovascular repair of this. Past Medical History Past Medical History: Diagnosis Date ??? AAA [...] ischemia ??? Transient cerebral ischemia Past Surgical History Past Surgical History: Procedure Laterality Date ??? ANGIOGRAM N/A 09/28/2018 Procedure: BILATERAL FEMORAL CUTDOWN WITH ANGIOGRAM; Surgeon: Juan Lewis MD; Location: OR ??? APPENDECTOMY ??? BACK SURGERY lumbar fusion x2 ??? BACK SURGERY cervical fusion C7 ??? COLONOSCOPY 2012 polyps ??? ENT SURGERY tonsils ??? EXCISE TOENAIL(S) 09/30/2012 Procedure: EXCISE TOENAIL(S);; Surgeon: Sal Chaparro DPM; Location: OR ? ? HEAD & NECK SURGERY cervical fusion ??? IR ABDOMINAL ENDOVASCULAR STENT GRAFT 09/28/2018 ??? IR LUMBAR DRAIN PLACEMENT W FLUORO 11/05/2018 ??? ORTHOPEDIC SURGERY left foot surg ??? ORTHOPEDIC SURGERY cervical fusion x2 ??? REMOVE HARDWARE FOOT 09/30/2012 Procedure: REMOVE HARDWARE FOOT; hardware removel left foot; Surgeon: Sal Chaparro DPM; Location: [facility] OR ??? THORACIC SURGERY left lung surg decortifcation ??? VASCULAR SURGERY AAA ??? wisdom teeth[ Prior to Admission Medications Prior to Admission Medications Prescriptions Last Dose Informant Patient Reported? Taking? acetaminophen (TYLENOL) 500 MG tablet 11/04/2018 at 2200 Self Yes Yes Sig: Take 500 mg by mouth 3 times daily as needed for mild pain apixaban ANTICOAGULANT (ELIQUIS) 2.5 MG tablet 10/30/2018 at PM Self No Yes Sig: Take 1 tablet (2.5 mg) by mouth 2 times daily atorvastatin (LIPITOR) 40 MG tablet 11/04/2018 at 1800 Self No Yes Sig: Take 1 tablet (40 mg) by mouth daily Patient taking differently: Take 40 mg by mouth every evening furosemide (LASIX) 20 MG tablet 11/04/2018 at 0800 Self Yes Yes Sig: Take 20 mg by mouth daily lisinopril (PRINIVIL/ZESTRIL) 10 MG tablet 11/05/2018 at 0400 Self Yes Yes Sig: Take 5 mg by mouth 2 times daily (0.5 x 10 mg = 5 mg dose) metoprolol tartrate (LOPRESSOR) 50 MG tablet 11/05/2018 at 0400 Self Yes Yes Sig: Take 50 mg by mouth 2 times daily sodium bicarbonate 650 MG tablet 10/30/2018 at PM Self Yes Yes Sig: Take 650 mg by mouth At Bedtime terazosin (HYTRIN) 5 MG capsule 11/04/2018 at 2200 Self Yes Yes Sig: Take 5 mg by mouth At Bedtime Facility-Administered Medications: None Allergies Allergies Allergen Reactions ??? Blood Transfusion Related (Informational Only) Other (See Comments) Patient has a history of a clinically significant antibody against RBC antigens. A delay in compatible RBCs may occur. ??? Norvasc [Amlodipine] ??? Novocain [Procaine Hcl] Bumps in throat ??? Penicillins Rash Social History Speedy Hendricks reports that he quit smoking about 33 years ago. His smoking use included cigarettes. He smoked 0.25 packs per day. he has never used smokeless tobacco. He reports that he drinks alcohol. He reports that he does not use drugs. Family History Family History Problem Relation Age of Onset ??? Abdominal Aortic Aneurysm Father from AAA at age 61 ??? Hypertension Father ??? Breast Cancer Mother ??? Coronary Artery Disease Brother ??? Hypertension Brother ??? Hyperlipidemia Brother ??? Hyperlipidemia Daughter Review of Systems The 10 point Review of Systems is negative other than noted in the HPI or here. Physical Exam Temp: 97 ??F (36.1 ??C) Temp src: Temporal BP: 155/81 Pulse: 63 Heart Rate: 52 Resp: (P) 12 SpO2: 94% O2 Device: Nasal cannula Oxygen Delivery: 2 LPM Vital Signs with Ranges Temp: [97 ??F (36.1 ??C)-98.1 ??F (36.7 ??C)] 97 ??F (36.1 ??C) Pulse: [57-71] 63 Heart Rate: [52-71] 52 Resp: [12-24] (P) 12 BP: (147-165)/(79-95) 155/81 MAP: [100 mmHg-121 mmHg] 106 mmHg Arterial Line BP: (148-181)/(61-81) 161/68 SpO2: [93 %-100 %] 94 % 185 lbs 14.4 oz Constitutional: awake, alert, cooperative, no apparent distress, and appears stated age Eyes: Lids and lashes normal, pupils equal, round and reactive to light, extra ocular muscles intact, sclera clear, conjunctiva normal ENT: normocepalic, without obvious abnormality, oropharynx pink and moist Hematologic / Lymphatic: no lymphadenopathy Respiratory: No increased work of breathing, good air exchange, clear to auscultation bilaterally, no crackles or wheezing Cardiovascular: regular rate and rhythm, normal S1 and S2 and no murmur noted GI: Normal bowel sounds, soft, non-distended, non-tender Skin: no redness, warmth, or swelling, no rashes. Surgical sites dressed. Musculoskeletal: There is no redness, warmth, or swelling of the joints. Full range of motion noted.Motor strength is 5 out of 5 all extremities bilaterally. Tone is normal. Neurologic: Awake, alert, oriented to name, place and time. Cranial nerves II- XII are grossly intact. Motor is 5 out of 5 bilaterally. Neuropsychiatric: Normal affect, memory, insight. Pulses: Palpable pedal pulses. No carotid bruits appreciated. Data Most Recent 3 CBC's: Recent Labs Lab Test 11/14/17 2329 05/11/17 0717 05/10/17 0743 05/09/17 0727 WBC 6.1 -- 7.7 9.5 HGB 13.7 -- 12.7* 12.9* MCV 97 -- 95 94 PLT 122* 169 168 185 Most Recent 3 BMP's: Recent Labs Lab Test 11/05/18 0655 09/29/18 1006 09/28/18 1111 11/15/17 0637 11/14/17 2329 NA -- 141 -- 141 141 POTASSIUM 4.3 4.5 4.0 4.1 3.7 CHLORIDE -- 109 -- 109 107 CO2 -- 25 -- 25 26 BUN -- 18 -- 33* 32* CR 1.52* 1.25 1.46* 1.51* 1.67* ANIONGAP -- 7 -- 7 8 BALDEMAR -- 8.8 -- 8.8 8.9 GLC -- 97 -- 105* 103* Most Recent 3 INR's: Recent Labs Lab Test 11/14/172328 INR 0.96 Most Recent Cholesterol Panel: Recent Labs Lab Test 11/05/18 0655 CHOL 128 LDL 44 HDL 59 TRIG 125 Most Recent Hemoglobin A1c: Recent Labs Lab Test 11/05/18 0655 A1C 5.2 [facility] documented in this encounter Nursing Notes Isis Rivera, JOSE - 11/05/2018 8:40 AM CST Noted swelling left ankle [facility] documented in this encounter Miscellaneous Notes Plan of Care - Maria C Dunbar RN - 11/09/2018 7:00 AM CST Neuro exams WDL. VSS, BPs elevated in 160's last laureen, trended galina to 120's systolic this am. Pt c/o chills this am, temp 99.3 oral. Recheck later this am trend labs per MD. A/o x4, awoke disoriented briefly this am, pulled off all monitors and IV as he was tangled in them. Is entirely appropriate at this time. Denies pain. Lumbar site changed, remains clean and dry. Groins sites soft, bruised, CMS intact. Voiding okay. [facility] Plan of Care - Misty Villalobos RN - 11/08/2018 7:10 PM CST A/O x4. AVSS on RA. Tele NSR. Hydralazine given x1. Up SBA. Neuros intact. CMS intact. Groin sites, steri strips. Back site, moist drainage. Pulses, palpable, +2. Regular diet. Chapman removed at 1740, Due to void. [facility] Provider Notification - Aura Crooks RN - 11/08/2018 11:37 AM CST MD NOTIFICATION Person Notified: MDA Notified Person's Name: Yeimi Notification Date/Time: 11/08/2017 1135 Notification Interaction: Paged physician Purpose of Notification: Pt remains to have drainage from lumbar drain site. Orders Received: MDA to come assess pt. [facility] Plan of Care - Kristy Castañeda RN - 11/08/2018 5:55 AM CST Pt alert and oriented x 4. Dull headache resolved with oxycodone. Right hip pain that referred to lower back, flexeril effective. Neuro's intact. Lumbar drain opened for 45 min for ICP of 22 overnight and 10 ml of output otherwise clamped. Hypertensive SBP>160 given labetalol and hydralazine, effective. Struggling with indigestion; Prilosec, Tums and Maalox given with effect, poor appetite and feel s abdomen is full. Stool softener administered. Anesthesia to access readiness for lumbar drain removal today. [facility] Provider Notification - Kristy Castañeda RN - 11/08/2018 4:27 AM CST 0358: Pt complaining of right hip pain, repositioned and flexeril given. 0425: ~30 min later pt woke up to sharp stabbing back pain. Pt supine and turned left side lying anddrain site assessed, old drainage noted. Pt pinpoints his pain to drain site specifically. No neuro changes. LUCAS's strongly. However plts are [address] Tobin of anesthesiology notified. Noimmediate concern at the moment but MDA will round this morning and assess pulling the drain. Kristy Castañeda RN [facility] Plan of Care - Aura Crooks RN - 11/07/2018 6:17 PM CST Neuro: LUCAS- strength 5/5. PERRL. Complains of soreness in groin/hips from moving them too much. Ptup in chair for a hour and tolerated well. Ok'd with Anesthesia MD, [place], to get up in chair forno more than an hour as long as drain is clamped. Cardiac: SR. Pulses palpable. BP and MAP within parameters. Resp: RA. Lungs diminished. Educated pt on I/S and Acapella but pt refused. GI: Regular diet. Poor appetite. Encouraging fluids. Drank ensure. : Chapman in place, good UOP. Skin: Surgical dressings still in place- per order MD will change. Otherwise, CDI. Lumbar Drain: No change, remains clamped and ICP wnl. Dried drainage and some blood in tubing- Anesthesia MD aware. [facility] Plan of Care - Danette Peck RN - 11/07/2018 1:12 PM CST [id number] Continued with numbness bilateral top of thighs. R hip hurts (pt and dtr states that if he is in bedtoo long at home, R hip hurts then also.) Pain is same as at home. Because of pain, pt has difficulty lifting R leg. I: Oxycodone, Tylenol, and ice. Pt fell asleep after Flexeril order received. Will give when awakens. Lumbar drain remains clamped. SCP mostly 11-20. Lungs: pt does snore and will have SD along with PAC's. CV:Difficult to control B/P due to lability.. Cont increased with pain and awake, and MAP intermittently decreases to 70's when sound asleep. B/P cuff sometimes correlates, sometimes 30pts lower, MAPs close . Dr Godoy here when pt asleep and had pain. SBP increased at that time. I: This am Labetalol X 3, Hydralazine X 1, Oral Metoprolol given. E: Fell asleep with MAP upper 70's to 80's. GI: not hungry. Ate poor U/O adequate. Dtr Raquel here and updated by Dr Walt Lewis here and aware of numbness that pt now feels may be sore muscles from lifting legs for neurochecks. Dr Feliciano here who stated pt can get up in chair for 1 hr with lumbar drain clamped. Plts redrawn. Dr Burrell here and since discrepancy in cuff and stephanie intermittently, will use cuff pressures. and dtr in room when Drs here. [facility] Provider Notification - Ramiro Lozano RN - 11/07/2018 6:17 AM CST Paged vascular surgery fellow Ashanti regarding new numbness to anterior thighs. CSF has been drained, will begin 500ml bolus unless directed otherwise. [facility] Plan of Care - Ramiro Lozano RN - 11/07/2018 5:21 AM CST Neuro: A/Ox4, neuros intact, hip flexion intact, all extremities 5/5 strength, did complain of headache during hypertensive episode, this resolved with BP correction, no deficits during this time, ICP remained 12-15. Respiratory: LS clear, RA with 94% oxygen saturation Cardiac:Tele is SR. VSS except hypertensive at start of shift, neosynephrine stopped and 20mg labetalol given in 2 doses followed by 10mg hydralazine. MAP and SBP now in goal range. GI: BSx4, regular diet, complains of BLQ abdominal pain, minor distension, passing flatus : chapman patent. Skin: Small drainage to lumbar drain site, uchanged. Bilateral groin site dressings CDI, L groin painful, good pulses in all extremities. Pain: Left groin pain controlled with tylenol, oxycodone, heat Mobility:. Bedrest this shift. Drain opened a little after 0400, 15 ml CSF drained, clamped now. Daughter Raquel updated this morning. [facility] Provider Notification - Ramiro Lozano RN - 11/07/2018 5:[address] Wang regarding new leg pain and ICP increase. Opening drain for 15ml CSF over 1 hr per order. [facility] Plan of Care - Danette Peck RN - 11/06/2018 4:34 PM CST [id number] Neuro checks remain intact. Able to move hips and sensation intact. Drain remains clamped rest of shift with SCP 7-15. Very tired and slept well for 2 hrs Lungs diminished. Uses IS to 1250, and acapella. CV: Phenylephrine weaned to keep SBP <160 and MAP >85. Less labile today when fell asleep. HR 50's intermittently. GI: Hungry. Had to wait long time for food. Ate 25%. Throat becomes more sore with toast and peña U/O adequate. Family here and updated. Cont Contact Isolation until can be retested for MRSA per infection control. [facility] Plan of Care - Ramiro Lozano RN - 11/06/2018 5:22 AM CST Neuro: A/Ox4, neuros intact, hip flexion intact, all extremities 5/5 strength. Respiratory: LS clear, 2L NC with O2 saturation 96% Cardiac:Tele is SR. VSS except on neosynephrine to maintain MAP>80 GI: BSx4, clear liquid diet : chapman patent. Skin: Small drainage to lumbar drain site, uchanged. Bilateral groin site dressings CDI, L groin painful, good pulses in all extremities. Pain: Left groin pain controlled with tylenol, oxycodone, heat Mobility:. Bedrest this shift. Daughter Raquel updated this morning. [facility] Plan of Care - Danette Peck RN - 11/05/2018 9:43 PM CST [id number] Neuro: intact. Able to move hips slightly due to keeping legs straight. No numbness or tingling. Lumbar drain draining clear liquid. Open until Dr here and clamped per order. Pressure 10-15 cm H2O (charted as ICP.) B/P high. I: Labetalol given. E: little change. I: Dr Ruth here and 10 mg more Labetalol given. E: Very little change. HR decreases to upper 40's when falls asleep. (Dtr states normal for pt and with Metoprolol 50mg bid and HR can decrease to 32.) I: Hydralazine. E: SB/P gradually decreased to <160 and when falls asleep, MAP can be < 80. Dr Mccray here and discussed treatment with S PalsNP and nurse. Pt mostly awake now. Cuff matches with A line at present. I: Cont keep SBP <160. MAP> 60 Lungs clear GI: Took Boost Breeze. U/O good. , dtrs updated by physicians. Care transferred to next nurse. [facility] Provider Notification - Ramiro Lozano RN - 11/05/2018 7:46 PM CST Notified telegraph plant maintainer regarding failure to meet MAP goal of 80, new orders received. 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 PROCEDURE: Pre-operative lumbar spinal drain placement Left common femoral artery cut-down and closure Right superficial femoral artery percutaneous access under real time ultrasound guidance with successful deployment of closure device Aortic arch angiogram Thoracic endovascular aortic repair (TEVAR) Deployment of Valiant Navion 34 mm x 34 mm x 229 mm Deployment of Valiant Navion 37 mm x 37 mm x 223 mm Completion descending aortic angiogram SURGEON: Butch Brown MD PERIPHERAL VASCULAR TECH: Kannan Morse MD; Bessy Mas MD - Vascular Fellow ANESTHESIA: General FLUORO: 15.4 minutes FLUORO DOSE: 1307 mGy CONTRAST: 50 mL visipaque ESTIMATED BLOOD LOSS: 50 mL INDICATIONS: This is a 78-year-old male with past medical history of hyperlipidemia, hypertension, atrial fibrillation, and chronic kidney disease was found to have an abdominal aortic aneurysm measuring 4.6 cm in size and then also found on workup to have a 5.6 cm descending thoracic aortic aneurysm.His medical history is significant for at least 2 family members that had significant aneurysm disease and a brother who reportedly in his arms from a ruptured AAA. Patient has significant anxietyabout his aneurysm disease and is requesting that we proceed with repair of his thoracic aortic aneurysm at its current size of 5.6 cm. Consent was obtained from the patient with the family present with risks discussed including paraplegia, infection, bleeding, endoleak, embolization, injury to the inside of the aorta, heart attack, and stroke. We also discussed placement of a preoperative lumbar spinal drain to help assist with maintaining adequate spinal drainage and prevention of paraplegia. INTRAOPERATIVE FINDINGS: Successful deployment of 2 Valiant Navion stent grafts preservation of the left subclavian artery and were able to identify distal T12 lumbar arteries and preserve these by landing the stent graft just proximal to this location. Successful placement by neuro IR preoperatively of lumbar spinal drain for assistance in management of spinal drainage to prevent paraplegia. Strong signals via hand-held Doppler of the lower extremities noted at completion of the procedure. Patient was extubated stable condition moving all extremities and following commands appropriately with no signs of paraplegia completion of the case. The map was increased during the case to keep the map above80 mmHg throughout the stenting portion of the case and the spinal drain was open during this portion of the case to help drain spinal fluid and reduce spinal pressure. DESCRIPTION OF TECHNIQUE: Patient was brought to the operating laid on the operating table in the supine position. He was sedated appropriately and then the bilateral groins were prepped and draped in usual sterile fashion. Proceeded to perform a timeout at this juncture and the surgical team was agreement with the planned procedure and correctly marked extremities. Antibiotics were given within 1 hour of incision. Proceeded by cutdown that was redo in the left common femoral artery isolating the common femoral artery with Silastic Vesseloops. On the right side we were able to gain per cutaneous access of the superficial femoral artery which had a clean anterior wall with a micropuncture kit which included a needle and a microwire. We then able to upsized to a 6 Gabonese sheath over a Bentson wire.The patient was given 7000 units of IV heparin this was allowed to circulate for 3 minutes. A JULIANE 1 catheter was used to navigate the tortuous thoracic aorta over a Bentson wire and were able to place apigtail catheter in the ascending thoracic aorta for an arch aortic angiogram. On the left side we were able to gain access with a 18-gauge needle and a J-wire to the common femoral artery and upsized to an 11 Gabonese sheath. We then able to insert JULIANE 1 catheter over a Bentson wire to navigate the tortuous thoracic aorta into the ascending aortic arch. A Lunderquist wire was then advanced through this catheter up into the ascending aorta just next to the aortic valve. We removed the JULIANE 1 catheter andwe open the thoracic stent graft device which is a 34 mm x 34 mm x 229 mm proximal piece this was advanced into the aortic arch and positioned at the location of where we felt the left subclavian was located. At this point we then correctly positioned our fluoroscopy Gantry in the left anterior oblique position to open the arch adequately. We performed an angiogram this location with cessation of respirations. Endograft confirmed the location of the left subclavian artery origin this was marked on the screen and then were able to successfully deployed the stent graft in this location before pressure being held on the Lunderquist wire against the aortic valve during deployment. Once the stent graftwas then completely deployed the proximal end of the stent graft successfully and locked into place.At this point we then exchanged for the second piece of our thoracic stent graft. This piece measured 37 mm x 37 mm x 223 mm we advance this up into the thoracic aorta gently. I was unable to obtain a magnified view of the distal thoracic aorta and with contrast injection we were able to identify lumbar arteries that were located in this location just above the celiac artery origin that we are planning to preserve to help minimize paraplegia risk. We marked these on the screen and were able to deploy the second piece of the thoracic stent graft successfully landing just short of the lumbar arteries. A Reliant balloon was then advanced into the thoracic stent graft and we ballooned the proximal anddistal landing zones as well as the overlap successfully. Throughout the entire stenting portion of the procedure the spinal drain was kept open and draining to reduce spinal pressure and the mean arterial pressure was increased over 80 mmHg to help increase spinal perfusion. At this point we did a completion angiogram which confirmed there was no evidence of endoleak and good proximal and distal seal from our stent grafts. The device was removed and backfilled with a 16 Gabonese dry seal on the left.At this point we began our closure. On the left side we then removed the sheath over wire and clamped proximally the wire was removed once we had control the proximal modified the clamp of the common femoral artery and distally we clamped with angled DeBakey clamp. We inspected the lumen and irrigatedthere was no evidence of dissection we closed the common femoral artery with 5-0 Prolene RB1 needle and restored flow to the left leg. Inspected for hemostasis placed some Surgicel and a dry lap and held pressure. On the right side we were able to close the right superficial femoral artery access which was 6 Gabonese sheath with an Angio-Seal closure device performed by Dr. Kannan Morse. We held pressure in this location for additional 10 minutes to make sure there is hemostasis. The left groin was then irrigated copiously with normal saline inspected for hemostasis obtained with Bovie cautery closed in multiple layers the femoral sheath was closed with interrupted 2-0 Vicryl followed by 2-0 Vicryl for the deep subcutaneous layer a layer of 3-0 Vicryl suture and then finally the skin was reapproximated with subcuticular 4-0 Monocryl suture. The skin was then sealed with Dermabond. At the end of the case we inspected both feet which were warm and well-perfused and hand-held Doppler confirmed strong signal in both pedal arteries in both feet. All needle, sponge, estimate counts were correct at completion of the case. The patient was taken back to the recovery unit in stable condition he did awake appropriately and was following commands and moving all extremities. After completion of stenting and confirmation of no signs of paraplegia the spinal drain was then closed and monitor closely for sy mptoms and pressure was monitored continuously from the drain. Butch Brown MD Vascular Surgery [facility] Brief Op Note - Bessy Mccray MD - 11/05/2018 12:29 PM CST [facility] Brief Operative Note Pre-operative diagnosis: DESCENDING THORACIC AORTIC ANEURYSM Post-operative diagnosis same Procedure: Procedure(s): THORACIC ENDOVASCULAR ANEURYSM REPAIR WITH MEDTRONIC GRAFT Surgeon: Surgeon(s) and Role: * Juan Lewis MD - Primary * Butch Brown MD - Assisting * Bessy Mccray MD - Fellow - Assisting Anesthesia: General Estimated blood loss:20 mL Drains: Spinal drain placed pre op Specimens: none Findings: NO endoleak on completion angiogram. Good seal on graft, Right anigoseal placed Bedrest 2 hours MAP > 80, Spinal drain: No more than 15 mL to drain in an hour, if so clamp then reopen at the following hour Set to 10cm water Palp DP bilaterally Complications: None. Implants: None. [facility] Associated attestation - Butch Brown MD - 11/05/2018 1:09 PM [facility] [employer] Butch Brown MD IR Note - Gwen Rivas RN - 11/05/2018 10:27 AM CST Interventional Radiology Intra-procedural Nursing Note Patient Name: Speedy Hendricks Today's Date: November 05, 2018 Start Time: 849 End of procedure time: 904 Procedure: lumbar drain placement Report given to: Dr. See, anesthesia Time pt departs: 0920 Industrial Welder: n/a Other Notes: patient tolerated well. Drain connected to closed drainage system flushed with preservative free NS per Dr. Haro. 1mg Versed and 50mcg Fentanyl IV given for additional sedation (had received 4mg Versed and 100mcg Fentanyl in pre-op prior to arrival). SR on monitor .VSS. Patient taken back to pre-op bay in stable condition. Gwen Rivas RNotr flatbed driver Radiology [facility] documented in this encounter Plan of Treatment Not on filedocumented as of this encounter Procedures Procedure Name Priority Date/Time Associated Comments Diagnosis CBC WITH PLATELETS & Routine 11/09/2018 7:41 AM Descending tho racic Results for this DIFFERENTIAL [employer] [employer] aortic aneurysm (H) procedur e are in the results section. COMPREHENSIVE Routine 11/09/2018 7:41 AM Descending thoracic R esults for this METABOLIC PANEL [facility] aortic aneurysm (H) proce dure are in the results section. MAGNESIUM Routine 11/08/2018 3:40 AM Descending thoracic Re sults for this [employer] [employer] aortic aneurysm (H) procedur e are in the results section. COMPREHENSIVE Routine 11/08/2018 3:40 AM Descending thoracic R esults for this METABOLIC PANEL [facility] aortic aneurysm (H) proce dure are in the results section. CBC WITH PLATELETS Routine 11/08/2018 3:40 AM Descending thora cic Results for this [employer] [employer] aortic aneurysm (H) procedur e are in the results section. CBC WITH PLATELETS STAT 11/07/2018 3:00 PM Descending thora cic Results for this [employer] [employer] aortic aneurysm (H) procedur e are in the results section. CBC WITH PLATELETS & Timed 11/07/2018 9:50 AM Descending tho racic Results for this DIFFERENTIAL [employer] aortic aneurysm (H) procedur e are in the results section. MAGNESIUM Routine 11/07/2018 9:50 AM Descending thoracic Re sults for this [facility] [employer] aortic aneurysm (H) procedur e are in the results section. BASIC METABOLIC PANEL Timed 11/07/2018 9:50 AM Descending th oracic Results for this [facility] [employer] aortic aneurysm (H) procedur e are in the results section. GLUCOSE BY METER Routine 11/07/2018 7:44 AM Descending thoraci c Results for this [facility] [employer] aortic aneurysm (H) procedur e are in the results section. GLUCOSE BY METER Routine 11/07/2018 3:49 AM Descending thoraci c Results for this [employer] [employer] aortic aneurysm (H) procedur e are in the results section. GLUCOSE BY METER Routine 11/07/2018 12:08 Descending thoracic Results for this AM [facility] [employer] aortic aneurysm (H) procedur e are in the results section. GLUCOSE BY METER Routine 11/06/2018 7:53 PM Descending thoraci c Results for this [facility] [employer] aortic aneurysm (H) procedur e are in the results section. GLUCOSE BY METER Routine 11/06/2018 11:02 Descending thoracic Results for this AM [employer] [employer] aortic aneurysm (H) procedur e are in the results section. GLUCOSE BY METER Routine 11/06/2018 7:38 AM Descending thoraci c Results for this [employer] [employer] aortic aneurysm (H) procedur e are in the results section. LACTIC ACID WHOLE Routine 11/06/2018 4:15 AM Descending thorac ic Results for this BLOOD [facility] aortic aneurysm (H) procedur e are in the results section. BASIC METABOLIC PANEL Routine 11/06/2018 4:15 AM Descending th oracic Results for this [employer] [employer] aortic aneurysm (H) procedur e are in the results section. CBC WITH PLATELETS Routine 11/06/2018 4:15 AM Descending thora cic Results for this [employer] [employer] aortic aneurysm (H) procedur e are in the results section. GLUCOSE BY METER Routine 11/06/2018 1:12 AM Descending thoraci c Results for this [facility] [employer] aortic aneurysm (H) procedur e are in the results section. MRSA MSSA PCR, NASAL STAT 11/05/2018 11:41 Descending thora cic Results for this SWAB PM [facility] aortic aneurysm (H) procedur e are in the results section. GLUCOSE BY METER Routine 11/05/2018 8:16 PM Descending thoraci c Results for this [facility] [employer] aortic aneurysm (H) procedur e are in the results section. GLUCOSE BY METER Routine 11/05/2018 4:39 PM Descending thoraci c Results for this [employer] [employer] aortic aneurysm (H) procedur e are in the results section. INR STAT 11/05/2018 4:35 PM Descending thoracic Re sults for this [employer] [employer] aortic aneurysm (H) procedur e are in the results section. LACTIC ACID WHOLE STAT 11/05/2018 4:35 PM Descending thorac ic Results for this BLOOD [facility] aortic aneurysm (H) procedur e are in the results section. BASIC METABOLIC PANEL STAT 11/05/2018 4:35 PM Descending th oracic Results for this [employer] [employer] aortic aneurysm (H) procedur e are in the results section. CBC WITH PLATELETS STAT 11/05/2018 4:35 PM Descending thora cic Results for this [employer] [employer] aortic aneurysm (H) procedur e are in the results section. IR THORACIC Routine 11/05/2018 12:09 Descending thoracic Resu lts for this ENDOVASCULAR STENT PM [facility] aortic aneurysm (H) pr ocedure are in GRAFT the results section. REPAIR, ANEURYSM, 11/05/2018 9:35 AM DESCENDING THORAC IC THORACIC AORTIC, [facility] AORTIC ANEURYSM ENDOVASCULAR Special Needs BLOOD TRANSFUSION ISSUE (RAR E ANTIBODIES) PT WILL DO A TYPE AND CROSS ON 11/03 JALEEL 10/28 IR LUMBAR DRAIN Routine 11/05/2018 9:10 AM Result s for this PLACEMENT W FLUORO [facility] procedure are in the results section. EKG 12-LEAD, TRACING STAT 11/05/2018 6:58 AM R esults for this ONLY [facility] [employer] procedure are i n the results section. POTASSIUM STAT 11/05/2018 6:55 AM Descending thoracic Re sults for this [employer] [employer] aortic aneurysm (H) procedur e are in the results section. LIPID PROFILE STAT 11/05/2018 6:55 AM Descending thoracic R esults for this [employer] [employer] aortic aneurysm (H) procedur e are in the results section. HEMOGLOBIN A1C STAT 11/05/2018 6:55 AM Descending thoracic Results for this [facility] [employer] aortic aneurysm (H) procedur e are in the results section. CREATININE STAT 11/05/2018 6:55 AM Descending thoracic Re sults for this [facility] [employer] aortic aneurysm (H) procedur e are in the results section. XR CHEST PORT 1 VIEW STAT 11/05/2018 6:40 AM R esults for this [employer] [employer] procedure are i n the results section. EKG CARDIAC - HIM 09/24/2018 12:00 AM SCAN [facility] documented in this encounter Results (ABNORMAL) CBC with platelets differential (11/09/2018 7:41 AM [facility] [employer]) Component Value Ref Test Analysis Performed At [facility] gist Range Method Time Signature WBC 9.3 4.0 - 11/09/2018 [facility] 11.0 8:06 AM [facility] 10e9/L [facility] RBC Count 3.55 (L) 4.4 - 11/09/2018 [facility] 5.9 8:06 AM [facility] [address] [place] [address] Hemoglobin 11.3 (L) 13.3 - 11/09/2018 [facility] 17.7 8:06 AM [facility] Hematocrit 33.7 (L) 40.0 - 11/09/2018 [facility] 53.0 % 8:06 AM [facility] MCV 95 78 - 100 11/09/2018 [facility] fl 8:06 AM [facility] MCH 31.8 26.5 - 11/09/2018 [facility] 33.0 pg 8:06 AM [facility] MCHC 33.5 31.5 - 11/09/2018 [facility] 36.5 8:06 AM [facility] RDW 13.9 10.0 - 11/09/2018 [facility] 15.0 % 8:06 AM [facility] Platelet Count 83 (L) 150 - 11/09/2018 [facility] 450 8:[address] Diff Method Manual 11/09/2018 [facility] Differential 8:31 AM [facility] % Neutrophils 85.0 % 11/09/2018 [facility] 8:31 AM [facility] % Lymphocytes 6.0 % 11/09/2018 [facility] 8:31 AM [facility] % Monocytes 7.0 % 11/09/2018 [facility] 8:31 AM [facility] % Eosinophils 2.0 % 11/09/2018 [facility] 8:31 AM [facility] % Basophils 0.0 % 11/09/2018 [facility] 8:31 AM [facility] Absolute 7.9 1.6 - 11/09/2018 [facility] Neutrophil 8.3 8:[address] Absolute 0.6 (L) 0.8 - 11/09/2018 [facility] Lymphocytes 5.3 8:[address] Absolute 0.7 0.0 - 11/09/2018 [facility] Monocytes 1.3 8:[address] Absolute 0.2 0.0 - 11/09/2018 [facility] Eosinophils 0.7 8:[address] Absolute 0.0 0.0 - 11/09/2018 [facility] Basophils 0.2 8:[address] RBC Morphology Consistent with 11/09/2018 [facility] reported results 8:31 AM [facility] Platelet Automated count 11/09/2018 [facility] Estimate confirmed. 8:31 AM [facility] morphology is normal. Specimen Anatomical Collection Method Collection Time Receive d Time (Source) Location / / Volume Laterality Blood specimen 11/09/2018 7:41 AM 019 7:51 (specimen) [facility] AM [facility] Dimas Chapman MD LAB - BLOOD ORDERABLES Performing Organization Address City/State/ZIP Code Phon e Number M [facility] [address] [place] [address] [facility] [address] [place] [address], [place] [phone] (ABNORMAL) Comprehensive metabolic panel (11/09/2018 7:41 AM [employer] [employer]) athologist Signature Sodium 144 133 - 144 11/09/2018 [facility] mmol/L 8:11 AM [facility] Potassium 4.0 3.4 - 5.3 11/09/2018 [facility] mmol/L 8:11 AM [facility] Chloride 113 (H) 94 - 109 11/09/2018 [facility] mmol/L 8:11 AM [facility] Carbon Dioxide 22 20 - 32 11/09/2018 [facility] mmol/L 8:17 AM [facility] Anion Gap 9 3 - 14 11/09/2018 [facility] mmol/L 8:17 AM [facility] Glucose 94 70 - 99 11/09/2018 [facility] mg/dL 8:17 AM [facility] Urea Nitrogen 21 7 - 30 11/09/2018 [facility] mg/dL 8:17 AM [facility] Creatinine 1.24 0.66 - 11/09/2018 [facility] 1.25 mg/dL 8:17 AM [facility] GFR Estimate 56 (L) >60 11/09/2018 [place] mL/min/{1. 8:17 AM [facility] 73_m2} [facility]OSP[facility] Comment: Non GFR Calc Starting 10/05/2018, serum creatinine ba sed estimated GFR (eGFR) will be calculated using the Chronic Kidney Dise ase Epidemiology Collaboration (CKD-EPI) equation. GFR Estimate If 65 >60 mL/min/{1.73_m2} 11/09/2018 8: 17 AM [facility] Comment: GFR Calc Starting 10/05/2018, serum creatinine ba sed estimated GFR (eGFR) will be calculated using the Chronic Kidney Dise ase Epidemiology Collaboration (CKD-EPI) equation. Calcium 8.4 (L) 8.5 - 10.1 11/09/2018 8:17 AM [facility] mg/dL [facility] Bilirubin Total 1.3 0.2 - 1.3 mg/dL 11/09/2018 8:19 AM [facility] Albumin 2.4 (L) 3.4 - 5.0 g/dL 11/09/2018 8:19 AM [facility] Protein Total 6.2 (L) 6.8 - 8.8 g/dL 11/09/2018 8:19 AM [facility] Alkaline Phosphatase 72 40 - 150 U/L 11/09/2018 8:19 AM [facility] ALT 17 0 - 70 U/L 11/09/2018 8:19 AM [facility] AST 15 0 - 45 U/L 11/09/2018 8:19 AM [facility] Specimen Anatomical Collection Method Collection Time Receive d Time (Source) Location / / Volume Laterality Blood specimen 11/09/2018 7:41 AM 019 7:51 (specimen) SUPERVISOR AREA AM SUPERVISOR AREA Dimas Chapman MD LAB - BLOOD ORDERABLES Performing Organization Address City/State/ZIP Code Phon e Number [facility] [address] [address] [facility] [address] [address], [place] [phone] Magnesium Level scheduled every Thu (11/08/2018 3:40 AM SUPERVISOR ARE[employer]) P athologist Signature Magnesium 1.7 1.6 - 2.3 11/08/2018 [place] mg/dL 4:06 AM [facility] Specimen Anatomical Collection Method Collection Time Receive d Time (Source) Location / / Volume Laterality Blood specimen 11/08/2018 3:40 AM 019 3:46 (specimen) SUPERVISOR AREA AM SUPERVISOR AREA Dimas Chapman MD LAB - BLOOD ORDERABLES Performing Organization Address City/State/ZIP Code Phon e Number [facility] [address] [address] [facility] [address] [place] [address], [place] [phone] (ABNORMAL) Comprehensive metabolic panel (11/08/2018 3:40 AM [employer]) Analysis Performed At Patho logist Time Signature Sodium 142 133 - 144 11/08/2018 [place] mmol/L 3:58 AM [facility] Potassium 4.2 3.4 - 5.3 11/08/2018 [place] mmol/L 3:58 AM [facility] Chloride 111 (H) 94 - 109 11/08/2018 [place] mmol/L 3:58 AM [facility] Carbon Dioxide 22 20 - 32 11/08/2018 [place] mmol/L 4:04 AM [facility] Anion Gap 9 3 - 14 11/08/2018 [place] mmol/L 4:04 AM [facility] Glucose 164 (H) 70 - 99 11/08/2018 [place] mg/dL 4:04 AM [facility] Urea Nitrogen 20 7 - 30 11/08/2018 [place] mg/dL 4:04 AM [facility] Creatinine 1.29 (H) 0.66 - 11/08/2018 [place] 1.25 mg/dL 4:04 AM [facility] GFR Estimate 53 (L) >60 11/08/2018 [place] mL/min/{1. 4:04 AM [facility] 73_m2} [facility] Comment: Non GFR Calc Starting 10/05/2018, serum creatinine ba sed estimated GFR (eGFR) will be calculated using the Chronic Kidney Dise [facility] Epidemiology Collaboration (CKD-EPI) equation. GFR Estimate If 62 >60 mL/min/{1.73_m2} 11/08/2018 4: 04 AM [facility] Comment: GFR Calc Starting 10/05/2018, serum creatinine ba sed estimated GFR (eGFR) will be calculated using the Chronic Kidney Dise ase Epidemiology Collaboration (CKD-EPI) equation. Calcium 8.2 (L) 8.5 - 10.1 11/08/2018 4:04 AM [facility] mg/dL [facility] Bilirubin Total 1.1 0.2 - 1.3 mg/dL 11/08/2018 4:06 AM [facility] Albumin 2.6 (L) 3.4 - 5.0 g/dL 11/08/2018 4:06 AM [facility] Protein Total 6.0 (L) 6.8 - 8.8 g/dL 11/08/2018 4:06 AM [facility] Alkaline Phosphatase 62 40 - 150 U/L 11/08/2018 4:06 AM [facility] ALT 18 0 - 70 U/L 11/08/2018 4:06 AM [facility] AST 19 0 - 45 U/L 11/08/2018 4:06 AM [facility] Specimen Anatomical Collection Method Collection Time Receive d Time (Source) Location / / Volume Laterality Blood specimen 11/08/2018 3:40 AM 019 3:46 (specimen) SUPERVISOR AREA AM [facility] Gurwinder Godoy MD LAB - BLOOD ORDERABLES Performing Organization Address City/State/ZIP Code Phon e Number [facility] [address] [address] [phone] [facility] [address] [address], U [phone] (ABNORMAL) CBC (AM Draw) (11/08/2018 3:40 AM [employer]) Analysis Performed At Patho logist Time Signature WBC 11.2 (H) 4.0 - 11.0 11/08/2018 [place] 10e9/L 3:50 AM [facility] RBC Count 3.62 (L) 4.4 - 5.9 11/08/2018 [place] 10e12/L 3:50 AM [facility] Hemoglobin 11.6 (L) 13.3 - 11/08/2018 [place] 17.7 g/dL 3:50 AM [facility] Hematocrit 34.5 (L) 40.0 - 11/08/2018 [facility] 53.0 % 3:50 AM [facility] MCV 95 78 - 100 11/08/2018 [facility] fl 3:50 AM [facility] MCH 32.0 26.5 - 11/08/2018 [facility] 33.0 pg 3:50 AM [facility] MCHC 33.6 31.5 - 11/08/2018 [facility] 36.5 g/dL 3:50 AM [facility] RDW 13.9 10.0 - 11/08/2018 [facility] 15.0 % 3:50 AM [facility] Platelet Count 82 (L) 150 - 450 11/08/2018 [facility] 10e9/L 3:50 AM [facility] Specimen Anatomical Collection Method Collection Time Receive d Time (Source) Location / / Volume Laterality Blood specimen 11/08/2018 3:40 AM 019 3:46 (specimen) SUPERVISOR AREA AM [employer]OR AREA Gurwinder Godoy MD LAB - BLOOD ORDERABLES Performing Organization Address City/State/ZIP Code Phon e Number [facility] [address] [address] [phone] [facility] [address] [address], [facility] [phone] (ABNORMAL) CBC with platelets (11/07/2018 3:00 PM [employer]) Analysis Performed At Patho logist Time Signature WBC 11.1 (H) 4.0 - 11.0 11/07/2018 [facility] 10e9/L 3:08 PM [facility] RBC Count 3.74 (L) 4.4 - 5.9 11/07/2018 [facility] 10e12/L 3:08 PM [facility] Hemoglobin 11.9 (L) 13.3 - 11/07/2018 [facility] 17.7 g/dL 3:08 PM [facility] Hematocrit 35.4 (L) 40.0 - 11/07/2018 [facility] 53.0 % 3:08 PM [facility] MCV 95 78 - 100 11/07/2018 [facility] fl 3:08 PM [facility] MCH 31.8 26.5 - 11/07/2018 [facility] 33.0 pg 3:08 PM [facility] MCHC 33.6 31.5 - 11/07/2018 [facility] 36.5 g/dL 3:08 PM [facility] RDW 14.1 10.0 - 11/07/2018 [facility] 15.0 % 3:08 PM [facility] Platelet Count 87 (L) 150 - 450 11/07/2018 [facility] 10e9/L 3:08 PM [facility] Specimen Anatomical Collection Method Collection Time Receive d Time (Source) Location / / Volume Laterality Blood specimen 11/07/2018 3:00 PM 019 3:05 (specimen) SUPERVISOR AREA PM SUPERVISOR AREA Bart Feliciano MD LAB - BLOOD ORDERABLES Performing Organization Address City/State/ZIP Code Phon e Number [facility] [address] [place] [address] [facility] [address] [place] [address], [place] [phone] Magnesium (11/07/2018 9:50 AM [employer]PERVISOR [employer]A) P athologist Signature Magnesium 1.6 1.6 - 2.3 11/07/2018 [place] mg/dL 11:12 AM [facility] Specimen Anatomical Collection Method Collection Time Receive d Time (Source) Location / / Volume Laterality 11/07/2018 9:50 AM 9 [employer]PERVISOR AREA 10:04 AM [employer] Gurwinder Godoy MD LAB - BLOOD ORDERABLES Performing Organization Address City/State/ZIP Code Phon e Number [facility] [address] [place] [address] [facility] [address] [place] [address], [place] [phone] (ABNORMAL) CBC with platelets differential (11/07/2018 9:50 AM SUPERVISOR [employer]) Patholo gist Method Time Signature WBC 10.4 4.0 - 11/07/2018 [facility] 11.0 10:13 AM [facility] 10e9/L [facility] RBC Count 3.63 (L) 4.4 - 5.9 11/07/2018 [facility] 10e12/L 10:13 AM [facility] Hemoglobin 11.5 (L) 13.3 - 11/07/2018 [facility] 17.7 g/dL 10:13 AM [facility] Hematocrit 34.3 (L) 40.0 - 11/07/2018 [facility] 53.0 % 10:13 AM [facility] MCV 95 78 - 100 11/07/2018 [facility] fl 10:13 AM [facility] MCH 31.7 26.5 - 11/07/2018 [facility] 33.0 pg 10:13 AM [facility] MCHC 33.5 31.5 - 11/07/2018 [facility] 36.5 g/dL 10:13 AM [facility] RDW 14.0 10.0 - 11/07/2018 [facility] 15.0 % 10:13 AM [facility] Platelet Count 82 (L) 150 - 450 11/07/2018 [facility] 10e9/L 10:37 AM [facility] Diff Method Automated 11/07/2018 [facility] Method 10:37 AM [facility] % Neutrophils 78.8 % 11/07/2018 [facility] 10:37 AM [facility] % Lymphocytes 6.2 % 11/07/2018 [facility] 10:37 AM [facility] % Monocytes 14.7 % 11/07/2018 [facility] 10:37 [facility] % Eosinophils 0.2 % 11/07/2018 [facility] 10:37 AM [facility] % Basophils 0.0 % 11/07/2018 [facility] 10:37 AM [facility] % Immature 0.1 % 11/07/2018 [facility] Granulocytes 10:37 AM [facility] Nucleated RBCs 0 0 /100 11/07/2018 [facility] 10:37 AM [facility] Absolute 8.2 1.6 - 8.3 11/07/2018 [facility] Neutrophil 10e9/L 10:37 AM [facility] Absolute 0.6 (L) 0.8 - 5.3 11/07/2018 [facility] Lymphocytes 10e9/L 10:37 AM [facility] Absolute 1.5 (H) 0.0 - 1.3 11/07/2018 [facility] Monocytes 10e9/L 10:37 AM [facility] Absolute 0.0 0.0 - 0.7 11/07/2018 [place] Eosinophils 10e9/L 10:37 AM [facility] Absolute 0.0 0.0 - 0.2 11/07/2018 [facility] Basophils 10e9/L 10:37 AM [facility] Abs Immature 0.0 0 - 0.4 11/07/2018 [place] Granulocytes 10e9/L 10:37 AM [facility] Absolute 0.0 11/07/2018 [place] Nucleated RBC 10:37 AM [facility] Ovalocytes Slight 11/07/2018 [facility] 10:37 AM [facility] Platelet Automated 11/07/2018 [place] Estimate count 10:37 AM [facility] confirmed. [facility] Platelet morphology is normal. Specimen Anatomical Collection Method Collection Time Receive d Time (Source) Location / / Volume Laterality Blood specimen 11/07/2018 9:50 AM 019 (specimen) SUPERVISOR AREA 10:04 AM [employer] Gurwinder Godoy MD LAB - BLOOD ORDERABLES Performing Organization Address City/State/ZIP Code Phon e Number [facility] [address] [address] [phone] [facility] [address] [address], [facility] [phone] (ABNORMAL) Basic metabolic panel (11/07/2018 9:50 AM [facility]) Analysis Performed At Patho logist Time Signature Sodium 147 (H) 133 - 144 11/07/2018 [place] mmol/L 10:16 AM [facility] Potassium 4.1 3.4 - 5.3 11/07/2018 [place] mmol/L 10:16 AM [facility] Chloride 117 (H) 94 - 109 11/07/2018 [place] mmol/L 10:16 AM [facility] Carbon Dioxide 20 20 - 32 11/07/2018 [place] mmol/L 10:23 AM [facility] Anion Gap 10 3 - 14 11/07/2018 [place] mmol/L 10:23 AM [facility] Glucose 108 (H) 70 - 99 11/07/2018 [place] mg/dL 10:23 AM [facility] Urea Nitrogen 23 7 - 30 11/07/2018 [place] mg/dL 10:23 AM [facility] Creatinine 1.47 (H) 0.66 - 11/07/2018 [place] 1.25 mg/dL 10:23 AM [facility] GFR Estimate 46 (L) >60 11/07/2018 [place] mL/min/{1. 10:23 AM [facility] 73_m2} [facility]OSPITAL Comment: Non GFR Calc Starting 10/05/2018, serum creatinine ba sed estimated GFR (eGFR) will be calculated using the Chronic Kidney Dise [facility] Epidemiology Collaboration (CKD-EPI) equation. GFR Estimate If 53 (L) >60 mL/min/{1.73_m2} 11/07/2018 10 :23 AM [place] [facility] Comment: GFR Calc Starting 10/05/2018, serum creatinine ba sed estimated GFR (eGFR) will be calculated using the Chronic Kidney Dise [facility] Epidemiology Collaboration (CKD-EPI) equation. Calcium 8.2 (L) 8.5 - 10.1 mg/dL 11/07/2018 10:23 AM [facility] Specimen Anatomical Collection Method Collection Time Receive d Time (Source) Location / / Volume Laterality Blood specimen 11/07/2018 9:50 AM 019 (specimen) SUPERVISOR AREA 10:04 AM [employer] AREA Gurwinder Godoy MD LAB - BLOOD ORDERABLES Performing Organization Address City/State/ZIP Code Phon e Number [facility] [address] [address] [facility] [address] [address], [facility] [phone] (ABNORMAL) Glucose by meter (11/07/2018 7:44 AM SUPER[employer]OR AREA) P athologist Signature Glucose 112 (H) 70 - 99 11/07/2018 [facility] mg/dL 7:56 AM SUPERVISOR AREA TEST, GLUCOSE Specimen Anatomical Collection Method Collection Time Receive d Time (Source) Location / / Volume Laterality 11/07/2018 7:44 AM 9 7:56 SUPERVISOR AREA AM SUPERVISOR AREA Juan Lewis MD LAB - BEAKER POCT Performing Organization Address City/State/ZIP Code Phon e Number [facility] POINT OF CARE TEST, GLUCOSE POINT OF CARE TEST, GLUCOSE (ABNORMAL) Glucose by meter (11/07/2018 3:49 AM [employer]VISOR AREA) P athologist Signature Glucose 105 (H) 70 - 99 11/07/2018 [facility] mg/dL 4:01 AM SUPERVISOR AREA TEST, GLUCOSE Specimen Anatomical Collection Method Collection Time Receive d Time (Source) Location / / Volume Laterality 11/07/2018 3:49 AM 9 4:01 SUPERVISOR AREA AM SUPERVISOR AREA Juan Lewis MD LAB - BEAKER POCT Performing Organization Address City/State/ZIP Code Phon e Number [facility] POINT OF CARE TEST, GLUCOSE POINT OF CARE TEST, GLUCOSE (ABNORMAL) Glucose by meter (11/07/2018 12:08 AM SU[employer]VISOR AREA) P athologist Signature Glucose 119 (H) 70 - 99 11/07/2018 [facility] mg/dL 12:19 AM SUPERVISOR AREA TEST, GLUCOSE Specimen Anatomical Collection Method Collection Time Receive d Time (Source) Location / / Volume Laterality 11/07/2018 12:08 11/07/2018 AM SUPERVISOR AREA 12:19 AM [employer]PERVISOR AREA Juan Lewis MD LAB - CAROLYN POCT Performing Organization Address City/State/ZIP Code Phon e Number [facility] POINT OF CARE TEST, GLUCOSE POINT OF CARE TEST, GLUCOSE (ABNORMAL) Glucose by meter (11/06/2018 7:53 PM [employer]VISOR AREA) P athologist Signature Glucose 116 (H) 70 - 99 11/06/2018 [facility] mg/dL 8:04 PM SUPERVISOR AREA TEST, GLUCOSE Specimen Anatomical Collection Method Collection Time Receive d Time (Source) Location / / Volume Laterality 11/06/2018 7:53 PM 9 8:04 SUPERVISOR AREA PM [employer]PERVISOR AREA Juan Lewis MD LAB - BEFOUZIA POCT Performing Organization Address City/State/ZIP Code Phon e Number [facility] POINT OF CARE TEST, GLUCOSE POINT OF CARE TEST, GLUCOSE (ABNORMAL) Glucose by meter (11/06/2018 11:02 AM SUPERVISOR AREA) P athologist Signature Glucose 109 (H) 70 - 99 11/06/2018 [facility] mg/dL 11:13 AM SUPERVISOR AREA TEST, GLUCOSE Specimen Anatomical Collection Method Collection Time Receive d Time (Source) Location / / Volume Laterality 11/06/2018 11:02 11/06/2018 AM [employer]PERVISOR AREA 11:13 AM [employer]PERVISOR AREA Juan YUAN - BEFOUZIA POCT Performing Organization Address City/State/ZIP Code Phon e Number [facility] POINT OF CARE TEST, GLUCOSE POINT OF CARE TEST, GLUCOSE (ABNORMAL) Glucose by meter (11/06/2018 7:38 AM [employer] [employer]) P athologist Signature Glucose 104 (H) 70 - 99 11/06/2018 [facility] mg/dL 7:50 AM SUPERVISOR AREA TEST, GLUCOSE Specimen Anatomical Collection Method Collection Time Receive d Time (Source) Location / / Volume Laterality 11/06/2018 7:38 AM 9 7:50 SUPERVISOR AREA AM SUPERVISOR AREA Juan YUAN - BEFOUZIA POCT Performing Organization Address City/[facility]/ZIP Code Phon e Number [facility] POINT OF CARE TEST, GLUCOSE POINT OF CARE TEST, GLUCOSE Lactic acid whole blood (11/06/2018 4:15 AM SUPERVISOR AREA) P athologist Signature Lactic Acid 1.4 0.7 - 2.0 11/06/2018 [place] mmol/L 4:40 AM [facility] Specimen Anatomical Collection Method Collection Time Receive d Time (Source) Location / / Volume Laterality Blood specimen 11/06/2018 4:15 AM 019 4:25 (specimen) SUPERVISOR AREA AM SUPERVISOR AREA Bessy Mccray MD LAB - BLOOD ORDERABLES Performing Organization Address City/[facility]/ZIP Code Phon e Number [facility] [address] [place] [address] [facility] [address] [place] [address], U [phone] (ABNORMAL) Basic metabolic panel (11/06/2018 4:15 AM [employer] [employer]) Analysis Performed At Patho logist Time Signature Sodium 142 133 - 144 11/06/2018 [facility] mmol/L 4:49 AM [facility] Potassium 4.4 3.4 - 5.3 11/06/2018 [place] mmol/L 4:49 AM [facility] Chloride 113 (H) 94 - 109 11/06/2018 [place] mmol/L 4:49 AM [facility] Carbon Dioxide 21 20 - 32 11/06/2018 [place] mmol/L 4:54 AM [facility] Anion Gap 8 3 - 14 11/06/2018 [place] mmol/L 4:54 AM [facility] Glucose 115 (H) 70 - 99 11/06/2018 [place] mg/dL 4:54 AM [facility] Urea Nitrogen 27 7 - 30 11/06/2018 [place] mg/dL 4:54 AM [facility] Creatinine 1.57 (H) 0.66 - 11/06/2018 [place] 1.25 mg/dL 4:54 AM [facility] GFR Estimate 42 (L) >60 11/06/2018 [place] mL/min/{1. 4:54 AM [facility] 73_m2} [facility]OSP[facility] Comment: Non GFR Calc Starting 10/05/2018, serum creatinine ba sed estimated GFR (eGFR) will be calculated using the Chronic Kidney Dise [facility] Epidemiology Collaboration (CKD-EPI) equation. GFR Estimate If 49 (L) >60 mL/min/{1.73_m2} 11/06/2018 4: 54 AM [place] [facility] Comment: GFR Calc Starting 10/05/2018, serum creatinine ba sed estimated GFR (eGFR) will be calculated using the Chronic Kidney Dise [facility] Epidemiology Collaboration (CKD-EPI) equation. Calcium 7.8 (L) 8.5 - 10.1 mg/dL 11/06/2018 4:54 AM [facility] Specimen Anatomical Collection Method Collection Time Receive d Time (Source) Location / / Volume Laterality Blood specimen 11/06/2018 4:15 AM 019 4:25 (specimen) SUPERVISOR AREA AM SUPERVISOR AREA Bessy Mccray MD LAB - BLOOD ORDERABLES Performing Organization Address City/State/ZIP Code Phon e Number [facility] [address] [address] [phone] [facility] [address] [address], [place] [phone] (ABNORMAL) CBC with platelets (11/06/2018 4:15 AM [employer] [employer]) Analysis Performed At Patho logist Time Signature WBC 12.9 (H) 4.0 - 11.0 11/06/2018 [facility] 10e9/L 4:45 AM [facility] RBC Count 3.93 (L) 4.4 - 5.9 11/06/2018 [facility] 10e12/L 4:45 AM [facility] Hemoglobin 12.5 (L) 13.3 - 11/06/2018 [facility] 17.7 g/dL 4:45 AM [facility] Hematocrit 36.8 (L) 40.0 - 11/06/2018 [facility] 53.0 % 4:45 AM [facility] MCV 94 78 - 100 11/06/2018 [facility] fl 4:45 AM [facility] MCH 31.8 26.5 - 11/06/2018 [facility] 33.0 pg 4:45 AM [facility] MCHC 34.0 31.5 - 11/06/2018 [facility] 36.5 g/dL 4:45 AM [facility] RDW 13.2 10.0 - 11/06/2018 [facility] 15.0 % 4:45 AM [facility] Platelet Count 153 150 - 450 11/06/2018 [facility] 10e9/L 4:45 AM [facility] Specimen Anatomical Collection Method Collection Time Receive d Time (Source) Location / / Volume Laterality Blood specimen 11/06/2018 4:15 AM 019 4:25 (specimen) SUPERVISOR AREA AM [employer]PERVISOR AREA Bessy Mccray MD LAB - BLOOD ORDERABLES Performing Organization Address City/State/ZIP Code Phon e Number [facility] [address] [address] [facility] [address] [address], [place] [phone] (ABNORMAL) Glucose by meter (11/06/2018 1:12 AM [employer] [employer]) P athologist Signature Glucose 126 (H) 70 - 99 11/06/2018 [facility] mg/dL 1:24 AM SUPER[employer]OR AREA TEST, GLUCOSE Specimen Anatomical Collection Method Collection Time Receive d Time (Source) Location / / Volume Laterality 11/06/2018 1:12 AM 9 1:24 SUPERVISOR AREA AM [employer]PERVISOR AREA Juan YUAN - BEAKER POCT Performing Organization Address City/State/ZIP Code Phon e Number [facility] POINT OF CARE TEST, GLUCOSE POINT OF CARE TEST, GLUCOSE Methicillin Resist/Sens S. aureus PCR (11/05/2018 11:41 PM [facility]) [facility] Method Time Signature Specimen Nares 11/05/2018 [place] Description 11:45 PM SUPERVISOR AREA [facility] Methicillin Negative NEG^Negat 11/06/2018 [facility] Resist/Sens S. shin 2:36 AM SUPERVISOR AREA [facility] aureus PCR [facility] Comment: MRSA Negative: SA Negative ??MRSA and St aphylococcus aureus target DNA not detected, presumed negative for MRSA and SA colonization or the number of bacteria present may be below the limit of detection for the assay. FDA approved assay performed using [employer] G eneXpert(R) real-time PCR. Specimen (Source) Anatomical Collection Method Collection Time Re ceived Time Location / / Volume Laterality Nasal structure 11/05/2018 11:41 11/06/19 19 (body structure) PM SUPERVISOR AREA Bessy Mccray MD LAB - MICRO GENERAL ORDERABL ES Performing Organization Address City/[facility]/ZIP Code Phon e Number [facility] [address] [place] [address] [facility] [address] [place] [address], [facility] [phone] (ABNORMAL) Glucose by meter (11/05/2018 8:16 PM [employer]VISOR AREA) P athologist Signature Glucose 128 (H) 70 - 99 11/05/2018 [facility] mg/dL 8:28 PM [employer]PER[employer]OR AREA TEST, GLUCOSE Specimen Anatomical Collection Method Collection Time Receive d Time (Source) Location / / Volume Laterality 11/05/2018 8:16 PM 9 8:28 SUPERVISOR AREA PM SUPERVISOR AREA Juan YUAN - BEFOUZIA POCT Performing Organization Address City/State/ZIP Code Phon e Number [facility] POINT OF CARE TEST, GLUCOSE POINT OF CARE TEST, GLUCOSE (ABNORMAL) Glucose by meter (11/05/2018 4:39 PM [employer] ARE[employer]) P athologist Signature Glucose 124 (H) 70 - 99 11/05/2018 [facility] mg/dL 4:50 PM [employer]PER[employer]OR AREA TEST, GLUCOSE Specimen Anatomical Collection Method Collection Time Receive d Time (Source) Location / / Volume Laterality 11/05/2018 4:39 PM 9 4:50 SUPERVISOR AREA PM [employer]PERVISOR AREA Juan Lewis MD LAB - BEAKER POCT Performing Organization Address City/State/ZIP Code Phon e Number [facility] POINT OF CARE TEST, GLUCOSE POINT OF CARE TEST, GLUCOSE (ABNORMAL) CBC with platelets (11/05/2018 4:35 PM [employer] [employer]) Analysis Performed At Patho logist Time Signature WBC 7.3 4.0 - 11.0 11/05/2018 [facility] 10e9/L 5:22 PM [facility] RBC Count 4.35 (L) 4.4 - 5.9 11/05/2018 [facility] 10e12/L 5:22 PM [facility] Hemoglobin 13.7 13.3 - 11/05/2018 [facility] 17.7 g/dL 5:22 PM [facility] Hematocrit 40.9 40.0 - 11/05/2018 [facility] 53.0 % 5:22 PM [facility] MCV 94 78 - 100 11/05/2018 [facility] fl 5:22 PM [facility] MCH 31.5 26.5 - 11/05/2018 [facility] 33.0 pg 5:22 PM [facility] MCHC 33.5 31.5 - 11/05/2018 [facility] 36.5 g/dL 5:22 PM [facility] RDW 13.1 10.0 - 11/05/2018 [facility] 15.0 % 5:22 PM [facility] Platelet Count 108 (L) 150 - 450 11/05/2018 [facility] 10e9/L 5:22 PM [facility] Specimen Anatomical Collection Method Collection Time Receive d Time (Source) Location / / Volume Laterality Blood specimen 11/05/2018 4:35 PM 019 5:17 (specimen) SUPERVISOR AREA PM SUPERVISOR AREA Bessy Mccray MD LAB - BLOOD ORDERABLES Performing Organization Address City/State/ZIP Code Phon e Number [facility] [address] [address] [facility] [address] [address], [place] [phone] INR (11/05/2018 4:35 PM [employer]PERVIS[employer] ARE[employer]) P athologist Signature INR 1.03 0.86 - 1.14 11/05/2018 [facility] 5:33 PM [facility] Specimen Anatomical Collection Method Collection Time Receive d Time (Source) Location / / Volume Laterality Blood specimen 11/05/2018 4:35 PM 019 5:17 (specimen) [employer]PER[employer]OR [employer] PM [employer] Bessy Mccray MD LAB - BLOOD ORDERABLES Performing Organization Address City/State/ZIP Code Phon e Number M [facility] [address] [place] [address] [phone] [facility] [address] [place] [address], [place] [phone] Lactic acid whole blood (11/05/2018 4:35 PM [employer]) P athologist Signature Lactic Acid 1.0 0.7 - 2.0 11/05/2018 [place] mmol/L 5:57 PM [facility] Specimen Anatomical Collection Method Collection Time Receive d Time (Source) Location / / Volume Laterality Blood specimen 11/05/2018 4:35 PM 019 5:18 (specimen) [employer] PM [employer] Bessy Mccray MD LAB - BLOOD ORDERABLES Performing Organization Address City/State/ZIP Code Phon e Number M [facility] [address] [place] [address] [phone] [facility] [address] [place] [address], [place] [phone] (ABNORMAL) Basic metabolic panel (11/05/2018 4:35 PM [facility]PERVISOR [facility]) Analysis Performed At Patho logist Time Signature Sodium 143 133 - 144 11/05/2018 [place] mmol/L 5:38 PM [facility] Potassium 4.3 3.4 - 5.3 11/05/2018 [facility] mmol/L 5:38 PM [facility] Chloride 113 (H) 94 - 109 11/05/2018 [place] mmol/L 5:38 PM [facility] Carbon Dioxide 22 20 - 32 11/05/2018 [place] mmol/L 5:43 PM [facility] Anion Gap 8 3 - 14 11/05/2018 [place] mmol/L 5:43 PM [facility] Glucose 121 (H) 70 - 99 11/05/2018 [place] mg/dL 5:43 PM [facility] Urea Nitrogen 24 7 - 30 11/05/2018 [place] mg/dL 5:43 PM [facility] Creatinine 1.30 (H) 0.66 - 11/05/2018 [place] 1.25 mg/dL 5:43 PM [facility] GFR Estimate 53 (L) >60 11/05/2018 [place] mL/min/{1. 5:43 PM [facility] 73_m2} [facility] Comment: Non GFR Calc Starting 10/05/2018, serum creatinine ba sed estimated GFR (eGFR) will be calculated using the Chronic Kidney Dise [facility] Epidemiology Collaboration (CKD-EPI) equation. GFR Estimate If 61 >60 mL/min/{1.73_m2} 11/05/2018 5: 43 PM [facility] Comment: GFR Calc Starting 10/05/2018, serum creatinine ba sed estimated GFR (eGFR) will be calculated using the Chronic Kidney Dise [facility] Epidemiology Collaboration (CKD-EPI) equation. Calcium 8.6 8.5 - 10.1 mg/dL 11/05/2018 5:43 PM [facility] Specimen Anatomical Collection Method Collection Time Receive d Time (Source) Location / / Volume Laterality Blood specimen 11/05/2018 4:35 PM 019 5:17 (specimen) [facility] PM [facility] Bessy Mccray MD LAB - BLOOD ORDERABLES Performing Organization Address City/State/ZIP Code Phon e Number M [facility] [address] [phone] [facility] [address] [address], [place] [phone] IR Thoracic Endovascular Stent Graft (11/05/2018 12:09 PM [facility]) Anatomical Region Laterality Modality Chest Radio Fluoroscopy Specimen (Source) Anatomical Location Collection Method / Collectio n Time Received Time / Laterality Volume Impressions 11/06/2018 3:33 PM [facility] IMPRESSION: 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 The components are Deborah iant Navion free flow components, the proximal of which is 34 x 34 x 229, and the distal of which is 37 x 37 x 223. 12 to 15 cm of o verlap between the two. No endoleak at completion. Lumbar drain bryan raj prior to procedure and will be monitored closely during patient 's recovery. 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 Patient had previous preparation for repair of abdominal aort ic aneurysm where thoracic aortic aneurysms incidentally identified . CT angiogram on September 29, 2018 further defined thoracic aortic ane urysms, measuring up to 5 cm. Plan is for endovascular repair with Med tronic Valiant Navion stent graft system. TECHNIQUE: Please note this examination was performed with Dr. Butch Brown of vascular surgery service and Dr Noman Martinez, vascular surgery fellow. Patient was brought to OR and placed in a supine position. Skin overlying both groins prepped and draped in standard sterile fashion, as well as the abdomen. Surgical cutdown was performed by Drs. Brown and Tomasa Chou for access to the left comm on femoral artery, please see separate dictation for details. There is mild amount of calcific plaque in the left common femoral artery at the medial wall. Patient also with scar formation from relatively recent incision. Therefore, u ltrasound was used to visualize the proximal superficial femor al artery, and used for access and image documentation. A micropuncture kit was used to access the proximal SFA, and area without calcifica tion. Over a series of maneuvers, 6 Gabonese vascular sheath was placed. From left groin access, angiogram was performed to confi rm iliac anatomy and passage of wires. Through each access, JULIANE 1 was used to navigate through the thoracic aorta, which was tortuous, thou gh eventually able to advance to the ascending thoracic aorta. A Gerri rquist wire was placed from the left groin approach and a pigtail ca theter was advanced from the right groin approach. An angiogram was p erformed of the aortic arch with pigtail catheter in the ascending t horacic aorta. Every care was taken to make sure no bubbles within the tubing during contrast administration. The Valiant Navion stent graft was advanced to the level of the left subclavian arterial or igin during the angiogram. Two components were used throughout the exam , the proximal component is a 34 x 34 x 229 Valiant Navion FreeFlow, d eployed beyond the origin of the left subclavian artery. After deploy ment to the descending thoracic aorta, pigtail catheter was adv anced through the distal aneurysmal dilatation and angiogram perf ormed. Over the Lunderquist wire, the second component was deployed, 37 x 37 x 223. Fairly long distance overlap of the 2 components was utilized given tortuosity of the aorta, degree of overlap estimated t o be 13 to 15 cm. Balloon was inflated at the proximal seal zone, the descending thoracic aorta at the mid segment, and the distal landing zone, proximal to the celiac artery. Angiogram was performed through the pigtail catheter at the ascending aorta. The components are wide ly patent. No evidence of endoleak. Pigtail catheter was then jeny fany with fluoroscopic guidance. Drs. Martinez and Stephanie repair ed the incision in the left groin. I deployed an Angio-Seal device i n the right groin access after angiogram performed overlying the right common femoral artery. No apparent complication throughout the exa m. Patient had palpable distal pulses at completion. Neurologic assessm ent will be performed periodically upon patient's awakening. Anesthesia: Please see separate anesthes iology notes for details. Contrast: 50 mL of Isovue administered i ntra-arterially without complication. Fluoroscopic time: 15.4 minutes Total fluoroscopic dose: 1308 mGy. FINDINGS: Total of 12 spot fluoroscopic images and angiogram sequences obtained throughout the procedure. Initi al angiogram is from the left common femoral artery demonstrating wide patency of the iliac arterial system. Subsequent images with JULIANE 1 cath eter through the aorta after the catheter straightened through tortuo sity in the descending thoracic aorta with placement of Lunderq uist wire. Angiogram was from the ascending thoracic aorta with placem ent of endograft in position near the origin of the left subclavian a rtery. Origins of the great vessels are patent, though with diffuse plaque. After deployment of the proximal stent graft, angiogram perf ormed in the descending thoracic aorta. Identification is made o f the celiac axis, SMA, and a prominent lumbar branch on the left. The next stent graft was deployed and segments of both were dilated with a n Reliant balloon. Completion angiogram demonstrates wide patency of t he stent graft system. The great arteries remain widely patent. Soledad iac axis, SMA, and prominent lumbar artery are patent. No endoleak. 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 Patient had previous preparation for repair of abdominal aort ic aneurysm where thoracic aortic aneurysms incidentally identified . CT angiogram on September 29, 2018 further defined thoracic aortic ane urysms, measuring up to 5 cm. Plan is for endovascular repair with Med tronic Valiant Navion stent graft system. TECHNIQUE: Please note this examination was performed with Dr. Butch Brown of vascular surgery service and Dr Noman Martinez, vascular surgery fellow. Patient was brought to OR and placed in a supine position. Skin overlying both groins prepped and draped in standard sterile fashion, as well as the abdomen. Surgical cutdown was performed by Drs. Brown and Tomasa Chou for access to the left comm on femoral artery, please see separate dictation for details. There is mild amount of calcific plaque in the left common femoral artery at the medial wall. Patient also with scar formation from relatively recent incision. Therefore, u ltrasound was used to visualize the proximal superficial femor al artery, and used for access and image documentation. A micropuncture kit was used to access the proximal SFA, and area without calcifica tion. Over a series of maneuvers, 6 Gabonese vascular sheath was placed. From left groin access, angiogram was performed to confi rm iliac anatomy and passage of wires. Through each access, JULIANE 1 was used to navigate through the thoracic aorta, which was tortuous, thou gh eventually able to advance to the ascending thoracic aorta. A Gerri rquist wire was placed from the left groin approach and a pigtail ca theter was advanced from the right groin approach. An angiogram was p erformed of the aortic arch with pigtail catheter in the ascending t horacic aorta. Every care was taken to make sure no bubbles within the tubing during contrast administration. The Valiant Navion stent graft was advanced to the level of the left subclavian arterial or igin during the angiogram. Two components were used throughout the exam , the proximal component is a 34 x 34 x 229 Valiant Navion FreeFlow, d eployed beyond the origin of the left subclavian artery. After deploy ment to the descending thoracic aorta, pigtail catheter was adv anced through the distal aneurysmal dilatation and angiogram perf ormed. Over the Lunderquist wire, the second component was deployed, 37 x 37 x 223. Fairly long distance overlap of the 2 components was utilized given tortuosity of the aorta, degree of overlap estimated t o be 13 to 15 cm. Balloon was inflated at the proximal seal zone, the descending thoracic aorta at the mid segment, and the distal landing zone, proximal to the celiac artery. Angiogram was performed through the pigtail catheter at the ascending aorta. The components are wide ly patent. No evidence of endoleak. Pigtail catheter was then jeny fany with fluoroscopic guidance. Drs. Martinez and Stephanie repair ed the incision in the left groin. I deployed an Angio-Seal device i n the right groin access after angiogram performed overlying the right common femoral artery. No apparent complication throughout the exa m. Patient had palpable distal pulses at completion. Neurologic assessm ent will be performed periodically upon patient's awakening. Anesthesia: Please see separate anesthes iology notes for details. Contrast: 50 mL of Isovue administered i ntra-arterially without complication. Fluoroscopic time: 15.4 minutes Total fluoroscopic dose: 1308 mGy. FINDINGS: Total of 12 spot fluoroscopic images and angiogram sequences obtained throughout the procedure. Initi al angiogram is from the left common femoral artery demonstrating wide patency of the iliac arterial system. Subsequent images with JULIANE 1 cath eter through the aorta after the catheter straightened through tortuo sity in the descending thoracic aorta with placement of Lunderq uist wire. Angiogram was from the ascending thoracic aorta with placem ent of endograft in position near the origin of the left subclavian a rtery. Origins of the great vessels are patent, though with diffuse plaque. After deployment of the proximal stent graft, angiogram perf ormed in the descending thoracic aorta. Identification is made o f the celiac axis, SMA, and a prominent lumbar branch on the left. The next stent graft was deployed and segments of both were dilated with a n Reliant balloon. Completion angiogram demonstrates wide patency of t he stent graft system. The great arteries remain widely patent. Soledad iac axis, SMA, and prominent lumbar artery are patent. No endoleak. IMPRESSION: Successful deployment in 2 c omponents for tandem thoracic aortic aneurysms. The components are Deborah iant Navion free flow components, the proximal of which is 34 x 34 x 229, and the distal of which is 37 x 37 x 223. 12 to 15 cm of o verlap between the two. No endoleak at completion. Lumbar drain bryan raj prior to procedure and will be monitored closely during patient 's recovery. KANNAN MORSE MD Bessy Mccray MD IMG IR ORDERABLES IR Lumbar Drain Placement w Fluoro (11/05/2018 9:10 AM [facility]) Anatomical Region Laterality Modality Spine Radio Fluoroscopy Specimen (Source) Anatomical Location Collection Method / Collectio n Time Received Time / Laterality Volume Narrative 11/05/2018 9:19 AM [facility] RADIOLOGY INTERVENTIONAL NEURORADIOLOGY PROCEDURAL NOTE FLUOROSCOPICALLY GUIDED PERCUTANEOUS LUM BAR DRAINAGE CATHETER PLACEMENT INDICATION: Scheduled for TVAR today. Ne eds preoperative lumbar drain.. CONSENT: The procedure and its indicatio ns, major risks, benefits, and alternatives were discussed. Risks inclu ding, but not limited to, pain, headache, hemorrhage, infection, n erve damage, spinal cord damage, and allergic reaction were discu ssed. Understanding was acknowledged, and a signed informed cons ent was obtained. MODERATE SEDATION: Versed 1 mg. Fentanyl 50 mcg. The procedure was performed with the administration of int ravenous conscious sedation with appropriate preoperative, intraoper ative, and postoperative evaluation. 15 minutes of supervised fac e to face conscious sedation time was provided by a radiology nurse dianna gardner direct supervision. During the time-out, immediately prior t o administration of medications, the patient was re-assessed for adequacy to receive conscious sedation. MEDICATIONS: Versed 1 mg IV Fentanyl 50 mcg IV FLUOROSCOPIC TIME: 1.9 minutes DOSE: Air Kerma: 115.01 mGy ESTIMATED BLOOD LOSS: Minimal PROCEDURE: PROCEDURE: The patient was pl aced in the prone position upon the fluoroscopic table. The skin of the back was prepped and draped in sterile fashion. Using fluoros copic guidance, the L2-3 level was localized. The skin was infiltrated with 1% lidocaine. Using direct fluoroscopic visualization a 14 g auge Tuohy needle was advanced into the thecal sac at the L2-3 level. A lumbar drainage catheter was then advanced through the needle until i ts tip was present in the thecal sac at the T9 level. The needle a nd stiffener wire were removed. Clear spinal fluid return from the catheter was noted. The catheter was secured to the skin with a suture, and then connected to a drainage bag. The procedure appeared w ell-tolerated. There was no apparent complication. CONCLUSION: 1. Technically successful fluoroscopical ly-guided percutaneous placement of a lumbar drainage catheter via L2-3 access, tip at T9. CPT codes included for physician referen ce only: [id number] MISSAEL GARCIA MD Procedure Note Missael Garcia MD - 11/05/2018For matting of this note might be different from the original. [facility] RADIOLOGY INTERVENTIONAL NEURORADIOLOGY PROCEDURAL NOTE FLUOROSCOPICALLY GUIDED PERCUTANEOUS LUM BAR DRAINAGE CATHETER PLACEMENT INDICATION: Scheduled for TVAR today. Ne eds preoperative lumbar drain.. CONSENT: The procedure and its indicatio ns, major risks, benefits, and alternatives were discussed. Risks inclu ding, but not limited to, pain, headache, hemorrhage, infection, n erve damage, spinal cord damage, and allergic reaction were discu ssed. Understanding was acknowledged, and a signed informed cons ent was obtained. MODERATE SEDATION: Versed 1 mg. Fentanyl 50 mcg. The procedure was performed with the administration of int ravenous conscious sedation with appropriate preoperative, intraoper ative, and postoperative evaluation. 15 minutes of supervised fac e to face conscious sedation time was provided by a radiology nurse dianna luis my direct supervision. During the time-out, immediately prior t o administration of medications, the patient was re-assessed for adequacy to receive conscious sedation. MEDICATIONS: Versed 1 mg IV Fentanyl 50 mcg IV FLUOROSCOPIC TIME: 1.9 minutes DOSE: Air Kerma: 115.01 mGy ESTIMATED BLOOD LOSS: Minimal PROCEDURE: PROCEDURE: The patient was pl aced in the prone position upon the fluoroscopic table. The skin of the back was prepped and draped in sterile fashion. Using fluoros copic guidance, the L2-3 level was localized. The skin was infiltrated with 1% lidocaine. Using direct fluoroscopic visualization a 14 g auge Tuohy needle was advanced into the thecal sac at the L2-3 level. A lumbar drainage catheter was then advanced through the needle until i ts tip was present in the thecal sac at the T9 level. The needle a nd stiffener wire were removed. Clear spinal fluid return from the catheter was noted. The catheter was secured to the skin with a suture, and then connected to a drainage bag. The procedure appeared w ell-tolerated. There was no apparent complication. CONCLUSION: 1. Technically successful fluoroscopical ly-guided percutaneous placement of a lumbar drainage catheter via L2-3 access, tip at T9. CPT codes included for physician referen ce only: [id number] MISSAEL GARCIA MD Butch Brown MD IMG IR ORDERABLES EKG 12-lead, tracing only (11/05/2018 6:58 AM [facility]OR [facility]) [facility] gist Method Time Signature Interpretation ECG Click View RADIOLOGY Image link RESULTS to view waveform and result Specimen (Source) Anatomical Collection Method Collection Time Re ceived Time Location / / Volume Laterality 11/05/2018 6:58 AM [facility] Juan Lewis MD ECG ORDERABLES Performing Organization Address City/State/ZIP Code Phon e Number RADIOLOGY RESULTS Potassium (11/05/2018 6:55 AM [facility]PERVISOR ARE[facility]) athologist Signature Potassium 4.3 3.4 - 5.3 11/05/2018 [facility] mmol/L 7:15 AM [facility] Specimen Anatomical Collection Method Collection Time Receive d Time (Source) Location / / Volume Laterality Blood specimen 11/05/2018 6:55 AM 019 6:56 (specimen) [facility]PER[facility]OR AREA AM [facility] AREA Zakia Tobin MD LAB - BLOOD ORDERABLES Performing Organization Address City/State/ZIP Code Phon e Number M [facility] [address] [place] [address] [phone] [facility] [address] [place] [address], [place] [phone] Lipid panel (11/05/2018 6:55 AM [facility]) Analysis Performed At Patho logist Time Signature Cholesterol 128 <200 mg/dL 11/05/2018 [facility] 7:20 AM [facility] Triglycerides 125 <150 mg/dL 11/05/2018 [facility] 7:21 AM [facility] HDL Cholesterol 59 >39 mg/dL 11/05/2018 [facility] 7:23 AM [facility] LDL Cholesterol 44 <100 mg/dL 11/05/2018 [facility] Calculated 7:23 AM [facility] Comment: Desirable: <100 mg/dl Non HDL Cholesterol 69 <130 mg/dL 11/05/2018 7:23 AM [facility] Specimen Anatomical Collection Method Collection Time Receive d Time (Source) Location / / Volume Laterality Blood specimen 11/05/2018 6:55 AM 019 6:56 (specimen) SUPERVISOR AREA AM [facility]OR AREA Juan Lewis MD LAB - BLOOD ORDERABLES Performing Organization Address City/State/ZIP Code Phon e Number M [facility] [address] [place] [address] [phone] [facility] [address] [place] [address], [place] [phone] Hemoglobin A1c (11/05/2018 6:55 AM [facility]PERVISOR [facility]) P athologist Signature Hemoglobin A1C 5.2 0 - 5.6 % 11/05/2018 [facility] 7:30 AM [facility] Comment: Normal <5.7% Prediabetes 5.7-6.4% ??Diab etes 6.5% or higher - adopted from ADA consensus guidelines. Specimen Anatomical Collection Method Collection Time Receive d Time (Source) Location / / Volume Laterality Blood specimen 11/05/2018 6:55 AM 019 6:56 (specimen) SUPERVISOR AREA AM [facility] Juan Lewis MD LAB - BLOOD ORDERABLES Performing Organization Address City/State/ZIP Code Phon e Number M [facility] [address] [address] [facility] [address] [place] [address], [place] [phone] (ABNORMAL) Creatinine (11/05/2018 6:55 AM [facility]PERVISOR AREA) athologist Signature Creatinine 1.52 (H) 0.66 - 11/05/2018 [place] 1.25 mg/dL 7:20 AM [facility] GFR Estimate 44 (L) >60 11/05/2018 [place] mL/min/{1. 7:20 AM [facility] 73_m2} [facility] Comment: Non GFR Calc Starting 10/05/2018, serum creatinine ba sed estimated GFR (eGFR) will be calculated using the Chronic Kidney Dise [facility] Epidemiology Collaboration (CKD-EPI) equation. GFR Estimate If 51 (L) >60 mL/min/{1.73_m2} 11/05/2018 7: 20 AM [facility] Comment: GFR Calc Starting 10/05/2018, serum creatinine ba sed estimated GFR (eGFR) will be calculated using the Chronic Kidney Dise [facility] Epidemiology Collaboration (CKD-EPI) equation. Specimen Anatomical Collection Method Collection Time Receive d Time (Source) Location / / Volume Laterality Blood specimen 11/05/2018 6:55 AM 019 6:56 (specimen) SUPERVISOR AREA AM [facility]OR AREA Juan eLwis MD LAB - BLOOD ORDERABLES Performing Organization Address City/State/ZIP Code Phon e Number M [facility] [address] [address] [facility] [address] [place] [address], [place] [phone] XR Chest Port 1 View (11/05/2018 6:40 AM [facility]) Anatomical Region Laterality Modality Chest Digital Radiography Specimen (Source) Anatomical Location Collection Method / Collectio n Time Received Time / Laterality Volume Impressions 11/05/2018 6:58 AM [facility]A IMPRESSION: No acute abnormality. TORI SANTIZO MD Narrative 11/05/2018 6:58 AM [facility]A XR CHEST PORTABLE 1 VIEW ?? 11/05/2018 6:40 AM HISTORY: Preoperative TEVAR. COMPARISON: 11/29/2017. FINDINGS: Upright portable chest. The he art size is normal. The thoracic aorta is calcified. There is ag ain aneurysmal dilatation of the descending thoracic aorta. There is scarring in the left lung. The lungs are otherwise clear. No pneumothor ax. Postoperative changes in the cervical spine. Overall, no signific ant interval change. Procedure Note Tori Santizo MD - 11/05/2018Form atting of this note might be different from the original. XR CHEST PORTABLE 1 VIEW 11/05/2018 6:40 AM HISTORY: Preoperative TEVAR. COMPARISON: 11/29/2017. FINDINGS: Upright portable chest. The he art size is normal. The thoracic aorta is calcified. There is ag ain aneurysmal dilatation of the descending thoracic aorta. There is scarring in the left lung. The lungs are otherwise clear. No pneumothor ax. Postoperative changes in the cervical spine. Overall, no signific ant interval change. IMPRESSION: No acute abnormality. TORI SANTIZO MD Juan Lewis MD IMG DIAGNOSTIC IMAGING ORDER [facility] EKG CARDIAC - HIM SCAN (09/24/2018 12:00 AM [facility]PERVISOR AREA) Specimen (Source) Anatomical Location Collection Method / Collectio n Time Received Time / Laterality Volume 09/24/2018 Narrative This result has an attachment that is no t available. Provider Outside ECG ORDERABLES documented in this encounter Visit Diagnoses Not on filedocumented in this encounter Admitting Diagnoses Diagnosis Thoracic aortic aneurysm (H) Thoracic aneurysm without mention of rup ture documented in this encounter Administered Medications Inactive Administered Medications - up to 3 most recent administrations Medication Order MAR Action Action Date Dose Rate Site acetaminophen (TYLENOL) tablet Given 11/08/2018 11:04 PM [facility] 975 mg 975 mg 975 mg, Oral, EVERY 6 HOURS PRN, mild pain, fever, Starting on Thu11/05/18 at 1827, Maximum acetaminophen dose from all sources = 75 mg/kg/day not to exceed 4 grams/day. Given 11/08/2018 12:37 PM [facility] 975 mg Given 11/07/2018 11:03 AM [facility] 975 mg alum & mag hydroxide-simethicone (MYLANTA Given 11/08/2018 2:48 AM [facility]PER[facility]OR [facility]A 30 mLs ES/MAALOX ES) suspension 30 mL 30 mL, Oral, EVERY 4 HOURS PRN, indigestion, Starting on Thu11/05/18 at 1510, Shake well. apixaban ANTICOAGULANT (ELIQUIS) tablet 2.5 Given 10/20 12:04 PM [facility] 2.5 mg mg 2.5 mg, Oral, 2 TIMES DAILY, First dose on Thu11/09/18 at 1115 atorvastatin (LIPITOR) tablet 40 mg Given 11/08/2018 8:20 PM [employer] [employer] 40 mg 40 mg, Oral, EVERY EVENING, First dose on Thu11/05/18 at 2000 Given 11/07/2018 7:49 PM [employer] [employer] 40 mg Given 11/06/2018 9:16 PM [facility] [employer] 40 mg BUPivacaine (MARCAINE) Given 11/05/2018 12:07 PM 20 mLs Operative Site/Surgical injection 0.5% PF [employer] [employer] Site PRN, Starting on Thu11/05/18 at 1207, Intra-procedure calcium carbonate (TUMS) chewable tablet Given 11/07/2018 10 :34 PM [employer] [employer] 1,000 mg 1,000 mg 1,000 mg, Oral, EVERY 2 HOURS PRN, heartburn, Starting on Thu11/06/18 at 0408, Do not give if calcium level greater than 10 mg/dL. Given 11/07/2018 12:05 AM [employer] [employer] 1,000 mg Given 11/06/2018 4:50 AM [facility] [employer] 1,000 mg cyclobenzaprine (FLEXERIL) tablet 5-10 m g Given 11/08/2018 3:58 AM [employer] [employer] 10 mg 5-10 mg, Oral, 3 TIMES DAILY PRN, muscle spasms, Starting on Thu11/07/18 at 1153 Given 11/07/2018 2:26 PM [employer] [employer] 5 mg diphenhydrAMINE (BENADRYL) injection 12. 5 mg 12.5 mg, Intravenous, EVERY 6 HOURS PRN, itching, Only give if patient unable to take PO., Starting on Thu11/05/18 at 151 0, Caution to be used when administering multiple SHOVEL OILER depressing meds within a sh ort time frame. For ordered IV doses 1-50 mg, give IV Push undiluted. Give each 25 mg over a minimum of 1 minute. Extend in non-emergency diphenhydrAMINE (BENADRYL) solution 12.5 mg 12.5 mg, Oral, EVERY 6 HOURS PRN, itchin g, Starting on Thu11/05/18 at 1510, Caution to be used when administering multiple SHOVEL OILER depressing meds within a short time frame. heparin 10,000 units in Given 11/05/2018 11:06 AM 200 mLs Operative Site/Surgical 1000 mL 0.9% sodium [employer] Site chloride PRN, Starting on Thu11/05/18 at 1106, Intra-procedure hydrALAZINE (APRESOLINE) injection 10-20 mg Given 11/08/2018 7:03 PM [employer] 10 mg 10-20 mg, Intravenous, EVERY 1 HOUR PRN, high blood pressure, Administer over 1 Minutes, Starting on Thu11/05/18 at 1510, FOR systolic blood pressure greater than 160 May use if heart rate 60 bpm OR LESS. Note for nurse: If both labetalol (NORMODYNE,TRANDATE) and hydrALAZINE (APRESOLINE) are ordered, use labetalol (NORMODYNE,TRANDATE) first UNLESS heart rate is less than 60 bpm. For ordered IV doses 1-40 mg, give IV Push undiluted over 1 minute. Given 11/08/2018 11:51 AM [employer] [employer] 20 mg Given 11/08/2018 3:36 AM [employer] [employer] 20 mg iopamidol (ISOVUE-300) IV Given 11/05/2018 12:42 PM 75 mLs Operative Site/Surgical solution 61% [employer] Site PRN, Starting on Thu11/05/18 at 1242, Intra-procedure labetalol (NORMODYNE/TRANDATE) injection 10-20 Given 0 11/08/2018 3:03 AM [employer] 10 mg mg 10-20 mg, Intravenous, EVERY 10 MIN PRN, high blood pressure, Administer over 1-2 Minutes, Starting on Thu11/05/18 at 1621, To achieve blood pressure of systolic < 160 mmHg Note for nurse: if both labetalol (NORMODYNE,TRANDATE) and hydrALAZINE (APRESOLINE) are ordered for hypertension, use labetalol (NORMODYNE,TRANDATE) as step one if heart rate greater than 60 bpm. For ordered doses up to 80 mg, give IV Push undiluted. Give each 20 mg over 2 minutes. Given 11/08/2018 2:33 AM [employer] [employer] 20 mg Given 11/07/2018 10:35 PM [employer] 10 mg magnesium sulfate 4 g in 100 mL sterile water (premade) 4 g, Intravenous, Administer over 120 Minutes, EVERY 4 HOURS PRN, magnesium supplementation, Starting on 11/07/18 at 1152, For serum Mg++ less than 1.6 mg/dL Give 4 g and recheck magnesium level 2 hours aft er dose, and next AM. metoprolol tartrate (LOPRESSOR) tablet 5 0 mg Given 11/09/2018 8:28 AM [employer] 50 mg 50 mg, Oral, 2 TIMES DAILY, First dose on Thu11/08/18 at 2100, Hold for SBP < 90, HR < 50 Given 11/08/2018 8:20 PM [employer] 50 mg omeprazole (priLOSEC) CR capsule 20 mg Given 11/09/2018 6:33 AM [employer] 20 mg 20 mg, Oral, EVERY MORNING BEFORE BREAKFAST, First dose on Thu11/07/18 at 2345 Given 11/08/2018 8:22 AM [employer] [employer] 20 mg Given 11/07/2018 11:48 PM [employer] [employer] 20 mg ondansetron (ZOFRAN) injection 4 mg Given 11/07/2018 11:48 PM [employer] 4 mg 4 mg, Intravenous, EVERY 6 HOURS PRN, nausea, vomiting, Administer over 2-5 Minutes, Starting on Thu11/05/18 at 1510, This is Step 1 of nausea and vomiting management. If nausea not resolved in 15 minutes, go to Step 2 prochlorperazine (COMPAZINE). Irritant. For ordered IV doses 0.1-4 mg, give IV Push undiluted over 2-5 minutes. ondansetron (ZOFRAN-ODT) ODT tab 4 mg 4 mg, Oral, EVERY 6 HOURS PRN, nausea, v omiting, Starting on Thu11/05/18 at 1510, This is Step 1 of nausea and vomiting management. If n ausea not resolved in 15 minutes, go to Step 2 prochlorperazine (COMPAZINE). Do not push through foil backing. Peel back foil and gently remove. Place on to ngue immediately. Administration with liquid unnecessary W ith dry hands, peel back foil backing and gently remove tablet; do not push oral d isintegrating tablet through foil backing; administer immediately on tongue and oral disintegrati ng tablet dissolves in seconds; then swallow with saliva; liquid not required . oxyCODONE IR (ROXICODONE) half-tab 2.5-5 mg Given 11/08/2018 12:37 PM [facility] [employer] 5 mg 2.5-5 mg, Oral, EVERY 4 HOURS PRN, moderate to severe pain, Starting on Thu11/05/18 at 1724 Given 11/08/2018 6:19 AM [employer] [employer] 5 mg Given 11/07/2018 7:49 PM [employer] [employer] 5 mg sennosides (SENOKOT) tablet 8.6 mg Given 11/08/2018 3:36 AM [employer] 8.6 mg 8.6 mg, Oral, 2 TIMES DAILY PRN, constipation, Starting on Thu11/08/18 at 0250 sodium chloride (PF) 0.9% PF flush 3 mL Given 11/07/2018 4:12 PM [employer] [employer] 3 mLs 3 mL, Intracatheter, EVERY 8 HOURS, First dose on Thu11/05/18 at 1515, And Q1H PRN, to lock peripheral IV dormant line. Given 11/07/2018 11:34 AM [employer] [employer] 3 mLs Given 11/07/2018 12:06 AM [employer] [employer] 10 mLs terazosin (HYTRIN) capsule 5 mg Given 11/08/2018 9:21 PM [facility] [employer] 5 mg 5 mg, Oral, AT BEDTIME, First dose on Thu11/05/18 at 2200 documented in this encounter Active and Recently Administered Medications Times are shown in [facility]. Scheduled Medication Order 11/07/2018 11/08/2018 11/09/2018 apixaban ANTICOAGULANT (ELIQUIS) tablet 2.5 mg 1204 (Given - Provider: Kiki Traylor RN) 2.5 mg, Oral, 2 TIMES DAILY, First dose on Thu11/09/18 at 1115 atorvastatin (LIPITOR) tablet 40 mg 1949 (Given - Provider: Kristy Castañeda RN) 2019 (Given - Provider: Maria C Dunbar, JOSE) 40 mg, Oral, EVERY EVENING, First dose on Thu11/05/18 at 2000 HYDROmorphone (PF) (DILAUDID) injection 0.2-0.4 mg 0.2-0.4 mg, Intravenous, ONCE, 1 dose, F ri 11/05/18 at 1515, For ordered IV doses 0.1-4 mg give IV Push undiluted. Administer each 2mg over 2-5 minutes. metoprolol tartrate (LOPRESSOR) tablet 25 mg (CANCELED ) 1114 (Given - Provider: Danette Peck RN)1949 (Given - Provider: Kristy Castañeda RN)205 (Canceled Entry - Provider: Kristy Castañeda RN) 0822 (Given - Provider: Aura Crooks RN) 25 mg, Oral, 2 TIMES DAILY, First dose on Thu11/05/18 at 1615 metoprolol tartrate (LOPRESSOR) tablet 50 mg 2019 (Given - Provider: Maria C Dunbar RN) 08 (Given - Provider: Kiki dey RN) 50 mg, Oral, 2 TIMES DAILY, First dose o n 11/08/18 at 2100, Hold for SBP < 90, HR < 50 omeprazole (priLOSEC) CR capsule 20 mg 2348 (Given - P rovider: Kristy Castañeda RN) 0822 (Given - Provider: Aura Crooks RN) 0633 (Give n - Provider: Maria C Dunbar RN) 20 mg, Oral, EVERY MORNING BEFORE BREAKFAST, First dose on un 11/07/18 at 2345 sodium bicarbonate tablet 650 mg 2221 (Not Given - Pro vider: Kristy Castañeda RN - Reason: Patient/family refused - Comment: it gives me terrible gas pains) 212 (Not Given - Provider: Maria C Dunbar RN - Reason: Patient/family refused) 650 mg, Oral, AT BEDTIME, First dose on Thu11/05/18 at 2200 sodium chloride (PF) 0.9% PF flush 3 mL 0006 (Given - Provider: Ramiro Lozano RN)1134 (Given - Provider: Danette Peck RN)1612 (Given - Provider: Aura Crooks, JOSE)2222 (Not Given - Provider: Kristy Castañeda RN - Reason: IV Infusing) 0658 (Not Given - Provider: Kristy Castañeda RN - Reason: IV Infusing)1627 (Not Given - Provider: Aura Crooks RN - Reason: IV Infusing) 0048 (Not Given - Provider: Maria C Dunbar, JOSE - Reason: IV Infusing)0855 (Not Given - Provider: Kiki Traylor RN - Reason: Loss of IV access) 3 mL, Intracatheter, EVERY 8 HOURS, Firs t dose on Thu11/05/18 at 1515, And Q1H PRN, to lock peripheral IV dormant line. terazosin (HYTRIN) capsule 5 mg 2221 (Not Given - Prov ider: Kristy Castañeda RN - Reason: NPO) 2121 (Given - Provider: Maria C Dunbar, JOSE) 5 mg, Oral, AT BEDTIME, First dose on Thu11/05/18 at 2200 Continuous Medication Order 11/07/2018 11/08/2018 11/09/2018 dextrose 5% and 0.45% NaCl infusion (CANCELED) 1426 (N ew Bag - Provider: Danette Peck RN)1535 (Rate/Dose Verify - Provider: Aura Crooks RN)2330 (New Bag - Provider: Kristy Castañeda RN) 0735 (New Bag - Provider: Aura Crooks , JOSE)1400 (Stopped - Provider: Aura Crooks, JOSE)1621 (Restarted - Provider: Aura Crooks, JOSE)1844 (New Bag - Provider: Misty Villalobos RN) at 75 mL/hr, Intravenous, CONTINUOUS, St arting Thu11/07/18 at 1200, Until Thu11/09/18 at 0731 PRN Medication Order 11/07/2018 11/08/2018 11/09/2018 0.9% sodium chloride BOLUS Intravenous, 500 mL, ONCE PRN, other, IF hypotension or hemorrhage., Starting Thu11/05/18 at 1510, For 1 dose, Administer quickly to patient tolerance IF positioning and increased IV rate are ineffectiv e in patient with massive hemorrhage and hypotension. Discontinue upon discharge from ICU. acetaminophen (TYLENOL) tablet 975 mg 0456 (Given - Pr ovider: Ramiro Lozano RN)1103 (Given - Provider: Danette Peck RN) 1237 (Given - Provider: Aura Crooks RN)2304 (Given - Provider: Maria C Dunbar, JOSE) 975 mg, Oral, EVERY 6 HOURS PRN, mild pa in, fever, Starting 11/05/18 at 1827, Maximum acetaminophen dose from all sources = 75 mg/kg/day not to exceed 4 grams/day. alum & mag hydroxide-simethicone (MYLANTA ES/MAALOX ES) susp ension 30 mL 0248 (Given - Provider: Kristy Castañeda, JOSE) 30 mL, Oral, EVERY 4 HOURS PRN, indigest ion, Starting 11/05/18 at 1510, Shake well. calcium carbonate (TUMS) chewable tablet 1,000 mg 0005 (Given - Provider: Ramiro Lozano RN)2234 (Given - Provider: Kristy Castañeda, JOSE) 1,000 mg, Oral, EVERY 2 HOURS PRN, heart burn, Starting 11/06/18 at 0408, Do not give if calcium level greater than 10 mg/dL. cyclobenzaprine (FLEXERIL) tablet 5-10 mg 1426 (Given - Provider: Danette Peck RN) 0358 (Given - Provider: Kristy Castañeda RN) 5-10 mg, Oral, 3 TIMES DAILY PRN, muscle spasms, Starting Sun at 1153 diphenhydrAMINE (BENADRYL) injection 12.5 mg(Linked Group 1) 12.5 mg, Intravenous, EVERY 6 HOURS PRN, itching, Only give if patient unable to take PO., Starting Thu11/05/18 at 1510, Caution to be used when administering multiple SHOVEL OILER depressing meds within a short time frame. For ordered IV doses 1-50 m g, give IV Push undiluted. Give each 25mg over a minimum of 1 minute. Extend in non-emergency diphenhydrAMINE (BENADRYL) solution 12.5 mg(Linked Group 1) 12.5 mg, Oral, EVERY 6 HOURS PRN, itchin g, Starting Thu11/05/18 at 1510, Caution to be used when administering multiple SHOVEL OILER depressing meds within a short time frame. hydrALAZINE (APRESOLINE) injection 10-20 mg 0155 (Give n - Provider: Ramiro Lozano RN)0343 (Given - Provider: Ramiro Lozano RN)1053 (Given - Provider: Danette Peck, JOSE) 0336 (Given - Provider: Kristy Castañeda RN )1151 (Given - Provider: Aura Crooks RN)1903 (Given - Provider: Misty Villalobos, JOSE) 10-20 mg, Intravenous, EVERY 1 HOUR PRN, high blood pressure, Administer over 1 Minutes, Starting Thu11/05/18 at 1510, FOR systolic blood pressure greater than 160 May use if heart rate 60 bpm OR LESS. Note for nurse: If both labetalol (NORMO DYNE,TRANDATE) and hydrALAZINE (APRESOLINE) are ordered, use labetalol (NORMODYNE,TRANDATE) first UNLESS heart rate is less than 60 bpm. For ordered IV doses 1-40 mg, give IV Push undiluted over 1 minute. labetalol (NORMODYNE/TRANDATE) injection 10-20 mg 0147 (Given - Provider: Ramiro Lozano RN)0419 (Given - Provider: Ramiro Lozano RN)0758 (Given - Provider: Danette Peck RN)0939 (Given - Provider: Danette Peck, JOSE)1014 (Given - Provider: Danette Peck RN) 0233 (Given - Provider: Kristy Castañeda RN)0303 (Given - Provider: Kristy Castañeda RN) 10-20 mg, Intravenous, EVERY 10 MIN PRN, high blood pressure, Administer over 1- 2 Minutes, Starting Thu11/05/18 at 1621, To achieve blood pressure of systolic < 160 mmHg Note for nurse: if both labet 4 (Given - Provider: Kristy Castañeda RN)2235 (Given - Provider: Kristy Castañeda RN) alol (NORMODYNE,TRANDATE) and hydrALAZIN E (APRESOLINE) are ordered for hypertension, use labetalol (NORMODYNE,TRANDATE) as step one if heart rate greater than 60 bpm. For ordered doses up to 80 mg, give IV Push undiluted. Give each 20 mg over 2 minutes. lidocaine (LMX4) cream Topical, EVERY 1 HOUR PRN, pain, with VA D insertion or accessing implanted port., Starting Thu11/05/18 at 1510, Do NOT give if patient has a history of allergy to any local anesthetic or any louie pro duct. Apply 30 minutes prior to VAD inse rtion or port access. MAX Dose: 2.5 g (?? of 5 g tube) lidocaine 1 % 1 mL 1 mL, Other, EVERY 1 HOUR PRN, mild pain with VAD insertion or accessing implanted port, Starting Thu11/05/18 at 1510, Do NOT give if patient has a history of allergy to any local anesthetic or any kathy ne product. MAX dose 1 mL subcutaneous OR intradermal in divide d doses. magnesium sulfate 4 g in 100 mL sterile water (premade) 4 g, Intravenous, Administer over 120 Mi nutes, EVERY 4 HOURS PRN, Starting Thu11/07/18 at 1152, magnesium supplementation, For serum Mg++ less than 1.6 mg/dL Give 4 g and recheck magnesium level 2 hours after dose, and next AM. naloxone (NARCAN) injection 0.1-0.4 mg 0.1-0.4 mg, Intravenous, EVERY 2 MIN PRN , opioid reversal, Starting Thu11/05/18 at 1510, For respiratory rate LESS than or EQUAL to 8. Partial reversal dose: 0.1 mg titrated q 2 minutes for Analgesia Si de Effects Monitoring Sedation Level of 3 (frequently drowsy, arousable, drifts to sleep during conversation).Full reversal dose: 0.4 mg bolus for Analgesia Side Effects Monitoring Sedation Level of 4 ( somnolent, minimal or no response to sti mulation). For ordered IV doses 0.1-2mg give IVP. Give each 0.4mg over 15 seconds in emergency situations. For non- emergent situations further dilute in 9mL of NS to facilitate titration of response. ondansetron (ZOFRAN) injection 4 mg(Linked Group 2) 23 48 (Given - Provider: Kristy Castañeda RN) 4 mg, Intravenous, EVERY 6 HOURS PRN, na usea, vomiting, Administer over 2-5 Minutes, Starting Thu11/05/18 at 1510, This is Step 1 of nausea and vomiting management. If nausea not resolved in 15 minutes, go to Step 2 prochlorperazine (COMPAZIN E). Irritant. For ordered IV doses 0.1-4 mg, give IV Push undiluted over 2-5 minutes. ondansetron (ZOFRAN-ODT) ODT tab 4 mg(Linked Group 2) 2348 (See Alternative - Provider: Kristy Castañeda RN) 4 mg, Oral, EVERY 6 HOURS PRN, nausea, v omiting, Starting Thu11/05/18 at 1510, This is Step 1 of nausea and vomiting management. If nausea not resolved in 15 minutes, go to Step 2 prochlorperazine (COMP AZINE). Do not push through foil backing . Peel back foil and gently remove. Place on tongue immediately. Administration with liquid unnecessary With dry hands, peel back foil backing and gently remove t ablet; do not push oral disintegrating t ablet through foil backing; administer immediately on tongue and oral disintegrating tablet dissolves in seconds; then swallow with saliva; liquid not required. oxyCODONE IR (ROXICODONE) half-tab 2.5-5 mg 0456 (Give n - Provider: Ramiro Lozano RN)1009 (Given - Provider: Danette Peck RN)1530 (Given - Provider: Aura Crooks, JOSE)1949 (Given - Provider: Kristy Castañeda, JOSE) 0619 (Given - Provider: Kristy Castañeda, RN)1237 (Given - Provider: Aura Crooks, JOSE) 2.5-5 mg, Oral, EVERY 4 HOURS PRN, moder ate to severe pain, Starting Thu11/05/18 at 1724 sennosides (SENOKOT) tablet 8.6 mg 0336 (Given - Provider: Kristy Castañeda, JOSE) 8.6 mg, Oral, 2 TIMES DAILY PRN, constipation, Starting Mon 11/08 at 0250 sodium chloride (PF) 0.9% PF flush 3 mL 3 mL, Intracatheter, EVERY 1 HOUR PRN, l ine flush, for peripheral IV flush post IV meds, Starting Thu11/05/18 at 1510 Linked Groups Order Group 1: diphenhydrAMINE (BENADRYL) solution 12.5 mgJump to med 12.5 mg, Oral, EVERY 6 HOURS PRN, itchin g, Starting Thu11/05/18 at 1510
Caution to be used when administering multiple SHOVEL OILER depressing meds within a short time frame.
Or diphenhydrAMINE (BENADRYL) injection 12.5 mgJump to med 12.5 mg, Intravenous, EVERY 6 HOURS PRN, itching, Only give if patient unable to take PO., Starting 11/05/18 at 1510
Caution to be used when administering multiple SHOVEL OILER depressing meds within a short time frame. For ordered IV doses 1-50 mg, give IV Push undiluted. Give each 25mg over a minimum of 1 minute. Extend in non-emergency
Group 2: ondansetron (ZOFRAN-ODT) ODT tab 4 mgJump to med 4 mg, Oral, EVERY 6 HOURS PRN, nausea, v omiting, Starting Thu11/05/18 at 1510
This is Step 1 of nausea and vomiting management. If nausea not resolved in 15 minutes, go to St ep 2 prochlorperazine (COMPAZINE). Do no t push through foil backing. Peel back foil and gently remove. Place on tongue immediately. Administration with liquid unnecessary With dry hands, peel b ack foil backing and gently remove table t; do not push oral disintegrating tablet through foil backing; administer immediately on tongue and oral disintegrating tablet dissolves in seconds; then swallow with saliva; liquid not required.
Or ondansetron (ZOFRAN) injection 4 mgJump to med 4 mg, Intravenous, EVERY 6 HOURS PRN, na usea, vomiting, Administer over 2-5 Minutes, Starting Thu11/05/18 at 1510
This is Step 1 of nausea and vomiting management. If nausea not resolved in 15 minutes, go to Step 2 prochlorperazine (COMPAZINE). Irritant. For ordered IV doses 0.1-4 mg, give IV Push undiluted over 2-5 minutes.
documented in this encounter Additional Health Concerns Infection Onset Date Last Indicated Resolved Time MRSAComment: Positive 02/17/11 and 09/22/12 11/05/2018 019 Negatives 05/03/14 (HE), 12/01/14 (HE) documented as of this encounter Care Teams Research And Development Chemist Relationship Specialty Start Date End Date Clinic, Kehinde Santos PCP - General 05/12/17 [address] [id number] documented as of this encounter
--- OUTSIDE RECORDS SUMMARY | 2022-05-28 05:03 | XMS_ITS | Encounter Summary ---
:1940 Author Organization [place] Address [facility] [place] [address] Care Team Providers Name Role Phone Clinic, [facility] Primary Care Provider [phone] Encounter Details Date Type Department Care Team Description 11/05/2018 Anesthesia Event [facility] Zakia Santoyo, Interventional Radio logy [address] [place] [id number] ANESTHESIOLOGY [phone] [address] [place] [address] [id number] Anesthesia Record Procedure Summary Procedure Name Responsible Anesthesia Start Anesthesia Stop Time Anesthesiologist Time IR LUMBAR DRAIN PLACEMENT W FLUORO Events No events on file. No medications on file. Agents No agents on file. Blood No blood administrations on file. Lines, Drains, and Airways Type Details Placement Removal Incision/Surgical Site 11/05/18; 1241; Left; 11/05/18 1241 by Ghislaine Wayne RN Incision/Surgical Site 11/05/18; 1241; Right; 11/05/18 1241 by Ghislaine Zhao RN Incision/Surgical Site 11/08/18; 0600; Lower; 11/08/18 0600 by Dereck Neal; Lumbar drain site Kristy Farrell RN documented in this encounter Social History Tobacco [...] Diagnoses Not on filedocumented in this encounter Care Teams Emergency Medicine Relationship Specialty Start Date End Date Kehinde Portillo PCP - General 05/12/[address] [place] [id number] documented as of this encounter
--- OUTSIDE RECORDS SUMMARY | 2022-05-28 05:03 | XMS_ITS | Encounter Summary ---
:1940 Author Organization [facility] Address [address] [place] [id number] Care Team Providers Name Role Phone [facility], [facility] Primary Care Provider [phone] Encounter Details Date Type Department Care Team Description 11/05/2018 Travel Social History Tobacco Use Types Packs/Day [...] documented as of this encounter Care Teams First Helper Relationship Specialty Start Date End Date [facility], [facility] PCP - General 05/12/[address] [place] [address] documented as of this encounter
--- OUTSIDE RECORDS SUMMARY | 2022-05-28 05:03 | XMS_ITS | Encounter Summary ---
:1940 Author Organization [place] Address [facility] [place] [address] Care Team Providers Name Role Phone Clinic, [facility] Primary Care Provider [phone] Encounter Details Date Type Department Care Team Description 11/05/2018 Anesthesia Event [facility] Bart Feliciano [place] MD Interventional [facility] Radiology [address] [place] [address] [place] [id number] [phone] Anesthesia Record Procedure Summary Procedure Name Responsible Anesthesia Start Anesthesia Stop Anesthesiologist Time Time IR THORACIC ENDOVASCULAR STENT GRAFT Events No events on file. No medications on file. Agents No agents on file. Blood No blood administrations on file. Lines, Drains, and Airways No LDAs on file. documented in this encounter Social History Tobacco [...] documented as of this encounter Care Teams Rehabilitation Engineer Relationship Specialty Start Date End Date [facility], [facility] PCP - General 05/12/[address] [place] [id number] documented as of this encounter
--- OUTSIDE RECORDS SUMMARY | 2022-05-28 05:03 | XMS_ITS | Encounter Summary ---
:1940 Author Organization [place] Address [address] [place] [address]. [place] [address] Care Team Providers Name Role Phone [facility], [facility] Primary Care Provider [phone] Encounter Details Date Type Department Care Team Description 11/12/2018 Telephone [facility] Vascular Butch Brown MD Clinic [place] [address] [place] [address] [place] [phone] [place] [id number] (Wo rk) Social History Tobacco Use Types [...] this encounter Miscellaneous Notes Telephone Encounter - TroySalimaPadmini - 11/12/2018 3:36 PM CST Spoke with Chastity who changed her dad's PO. I explained to Chastity that usually we schedule a 2 week po then 2 weeks later CTA and office visit. Chastity said that her sister is a nurse and has been checking the incision. She asked if it is ok for them to skip the post op. I told her that all patientsare encouraged to have a post op but that if they decide not to it is on them if something happens and that we strongly recommend they come in for PO. She will talk to her sister and call us if they decide to schedule 2 week PO. She did schedule 4 week CTA and they requested to do that f/u with Dr. Brown. Aruna Simmons, Proposal Specialist LERATOR SYSTEMS DIRECTOR documented in this encounter Plan of Treatment Not on filedocumented as of this encounter Visit Diagnoses Not on filedocumented in this encounter Additional Health Concerns Infection Onset Date Last Indicated Resolved Time MRSAComment: Positive 02/17/11 and 09/22/12 11/05/2018 019 Negatives 05/03/14 (HE), 12/01/14 (HE) documented as of this encounter Care Teams Manager Outpatient Relationship Specialty Start Date End Date [facility], [facility] PCP - General 05/12/[address] [place] [address] documented as of this encounter
--- OUTSIDE RECORDS SUMMARY | 2022-05-28 05:03 | XMS_ITS | Encounter Summary ---
:1940 Author Organization [place] Address [address] [facility] [place] [address] Care Team Providers Name Role Phone Clinic, [facility] Primary Care Provider [phone] Reason for Visit Reason Comments RECHECK 1st PO; THORACIC ENDOVASCULA R ANEURYSM REPAIR WITH MEDTRONIC GRAFT Encounter Details Date Type Department Care Team Description 11/26/2018 Office Visit [facility] Butch Brown Thoracic a ortic Vascular Clinic Félix Jay MD aneurysm without [address] ru pture (H) (Primary [address] Dx) [place] [phone] [place] [id number] Social History Tobacco Use Types Packs/Day Years [...] Sign Reading Time Taken Comments Blood Pressure 146/70 11/26/2018 10:47 AM RN TRAUMA Pulse 66 11/26/2018 10:47 AM RN TRAUMA Temperature - - Respiratory Rate - - Oxygen Saturation - - Inhaled Oxygen Concentration - - Weight 87.5 kg (193 lb) 11/26/2018 10:47 AM RN TRAUMA Height 167.6 cm (5' 6) 11/26/2018 10:47 AM RN TRAUMA Body Mass Index 31.15 11/26/2018 10:47 AM RN TRAUMA documented in this encounter Patient Instructions Patient InstructionsVon Landeros CMA - 11/26/2018 11:00 AM RN TRAUMA Patient to follow up with Primary Care provider regarding elevated blood pressure. TRAUMA documented in this encounter Progress Notes Von Landeros CMA - 11/26/2018 11:00 AM CST Speedy Hendricks is a 78 year old male who presents for: Chief Complaint Patient presents with ??? RECHECK 1st PO; THORACIC ENDOVASCULAR ANEURYSM REPAIR WITH MEDTRONIC GRAFT Vitals: Vitals: 11/26/18 1047 BP: 146/70 BP Location: Left arm Patient Position: Chair Cuff Size: Adult Regular Pulse: 66 Weight: 193 lb (87.5 kg) Height: 5' 6 (1.676 m) BMI: Estimated body mass index is 31.15 kg/m?? as calculated from the following: Height as of this encounter: 5' 6 (1.676 m). Weight as of this encounter: 193 lb (87.5 kg). Pain Score: Data Unavailable Von Landeros TRAUMA Butch Brown MD - 11/26/2018 11:00 AM CST Vascular Surgery Clinic Note Doing well post-op. He is having some intermittent pain shooting down the left leg with laying flat at night (similar to when he had a left SI joint injury). Overall, he is happy with his progress. Also, he's had some night sweats about 6 nights in the last month. These seem to be improving. Overall, no signs or symptoms of paraplegia in his lower legs. Physical Examination: BP 146/70 (BP Location: Left arm, Patient Position: Chair, Cuff Size: Adult Regular) Pulse 66 Ht1.676 m (5' 6) Wt 87.5 kg (193 lb) BMI 31.15 kg/m?? Gen: NAD, alert and oriented x3 HEENT: PERRLA, mucous membranes moist Ext: warm and dry. Well perfused. He has normal gait and motor bilateral lower legs. Left groin incision is well healed with good scar tissue formation. Right groin access site with still small amount of ecchymosis, but no mass or hematoma. A: 78 yo male s/p TEVAR for thoracic aortic aneurysm and extensive family history of aneurysm disease and still a 4.6 cm infra-renal AAA. Plan: I will plan to see Speedy back at the 6 month post-op visit for evaluation of his repair. The imaging today looks good with no signs of endoleak and the TEVAR looks to be in good position. At the next visit we will obtain a CTA of the chest/abd/pelvis to evaluate his whole aorta. He will call sooner if he develops any concerns or issues prior to this time. Overall, he is happy with his progress and would like to continue to follow his abdominal aorta which will eventually need repair when it reachesappropriate size, 5.0-5.5 cm. Butch Brown MD Vascular Surgery TRAUMA documented in this encounter Plan of Treatment [...] documented as of this encounter Care Teams Headwaitress Relationship Specialty Start Date End Date [facility], [facility] PCP - General 05/12/[address] [place], [place] [id number] documented as of this encounter
--- OUTSIDE RECORDS SUMMARY | 2022-05-28 05:03 | XMS_ITS | Encounter Summary ---
:1940 Author Organization [place] Address [address] [place] [id number] Care Team Providers Name Role Phone Clinic, [facility] Primary Care Provider [phone] Reason for Visit Surgical Procedure Inpatient (Routine) - Closed Specialty Diagnoses / Procedures Referred By Contact Refer red To Contact Vascular Surgery / Diagnoses DESCENDING THORACIC AORTIC ANEURYSM Juan Vásquez Brett Surgery Procedures *OR51*DR. VÁSQUEZ/DR. GARVIN*THORACIC ENDOVASCULAR ANEURYSM REPAIR WITH MEDTRONIC GRAFT MD Pierre Nava MD [address] [place] [address] [place] [address] Fax: Referral ID Status Reason Start Date Expiration Date Visits Requ ested Visits Authorized [id number] Closed 11/05/2018 11/05/2019 1 1 Encounter Details Date Type Department Care Team Description 11/05/2018 Office Visit [facility] Butch Garvin MD [address] [place] [address] Juan Vásquez MD [address] [place] [id number] Fellow, Sh Surg Cons Social History Tobacco Use Types Packs/Day Years [...] documented as of this encounter Care Teams Briquette Molder Relationship Specialty Start Date End Date [facility] PCP - General 05/12/17 [address] [place] [address] documented as of this encounter
--- OUTSIDE RECORDS SUMMARY | 2022-05-28 05:03 | XMS_ITS | Encounter Summary ---
:1940 Author Organization [place] Address [facility] [place] [address] Care Team Providers Name Role Phone Clinic, [facility] Primary Care Provider [phone] Reason for Referral Diagnostic Imaging CT Scan - Closed Specialty Diagnoses / Procedures Referred By Contact Refer red To Contact Radiology. Diagnoses Thoracic aortic aneurysm (H) Juan Lewis MD Ct Scan Procedures CTA Chest Abdomen Pelvis w Contrast [address] [place] [address] [place] [phone] Referral ID Status Reason Start Date Expiration Date Visits Requ ested Visits Authorized [id number] Closed 11/12/2018 11/12/2019 1 1 INSTALLER Reason for Visit Diagnostic Imaging CT Scan - Closed Specialty Diagnoses / Procedures Referred By Contact Refer red To Contact Radiology. Diagnoses Thoracic aortic aneurysm (H) Juan Lewis MD Ct Scan Procedures CTA Chest Abdomen Pelvis w Contrast [address] [place] [address] [place] [address] Referral ID Status Reason Start Date Expiration Date Visits Requ ested Visits Authorized [id number] Closed 11/12/2018 11/12/2019 1 1 Encounter Details Date Type Department Care Team Description 11/26/2018 [facility] Non-Fv Credentialed Pro vider, Lab Thoracic aortic Encounter [facility] Butch Brown MD [address] [place] [id number] aneurysm (H) [address] [place] [phone] Social History Tobacco Use Types Packs/Day Years [...] Name Priority Date/Time Associated Diagnosis Comme nts CTA CHEST ABDOMEN Routine 11/26/2018 9:03 AM Thoracic aortic R esults for this PELVIS W CONTRAST FAN INSTALLER aneurysm (H) procedure are in the results section. documented in this encounter Results CTA Chest Abdomen Pelvis w Contrast (11/26/2018 9:03 AM FAN INSTALLER) Anatomical Region Laterality Modality Lower Extremity, SUBRAD IR PROCEDURE, UMP CT CTA, RAD Computed Tomography CT Specimen (Source) Anatomical Location Collection Method / Collectio n Time Received Time / Laterality Volume Impressions 11/26/2018 4:44 PM FAN INSTALLER IMPRESSION: 1. New thoracic aortic endograft. Tandem areas of aneurysmal dilatation are relatively unchanged in s ize. No visible endoleak. Recommend annual surveillance. 2. Infrarenal abdominal aortic aneurysm measuring 4.6 x 4.6 cm, unchanged. 3. Somewhat irregular fluid collection i n left groin, likely postoperative seroma. Surrounding enlarg ed lymph nodes. TANNER STARKS MD Narrative 11/26/2018 4:44 PM FAN INSTALLER CTA CHEST, ABDOMEN AND PELVIS WITH CONTRAST 11/26/2018 9:03 AM HISTORY: ??78-year-old patient with thor acic aortic aneurysm as well as abdominal aortic aneurysm. Patient is st atus post TVAR on November 05, 2018. TECHNIQUE: Multiplanar, multiformatted C TA image obtained from the lung apices through the chest, abdomen, and pelvis before and after the uneventful administration of Isovue 370 intravenous contrast given for a total of 80 mL. Radiation dose for this scan was reduced using automated exposure control, adjustment o f the mA and/or kV according to patient size, or iterative reconstruc tion technique. Three-D reformatted images were created separate workstation. COMPARISON: September 29, 2018, evaluatio n of the chest and June 07, 2018, evaluation of the abdomen and pelv is. FINDINGS: The visible thyroid gland is u nremarkable. No abnormally enlarged mediastinal lymph nodes. Heart size is normal. No pericardial or pleural effusion. Linear opacities in left lower lobe are unchanged, likely scar formation. Overal l, pulmonary findings are relatively unchanged from previous exam. Old posterior left rib fractures or other defect unchanged. Justin gical fusion of the lower lumbar spine with diffuse intervertebral disc space narrowing. No acute osseous abnormality. Cholelithiasis, without complicating fea tures. The liver, spleen, adrenal glands, and pancreas are unremar kable. Renal hypodensities again identified and unchanged. No intra peritoneal fluid or air. The bladder is decompressed. Fluid collectio n noted overlying the left groin is 2.7 cm AP x 5.5 cm transverse, likely a seroma. Multiple enlarged lymph nodes, one of which measu res up to 2.5 x 1.5 cm. Old left inferior pubic ramus fracture. Ascending thoracic aorta is normal in si ze and appearance. Origins of the great arteries are widely patent. Ne w thoracic endograft is visible extending from the aortic arch j ust beyond the subclavian artery to near the celiac access at the diaphragmatic hiatus. There are tandem areas of aneurysmal dilatatio n in the thoracic aorta, the larger of which measures up to 4.8 cm in widest diameter, unchanged. The more inferior measures up to 5.2 cm in widest dimension, unchanged. No visible endoleak. The nav ac axis, SMA, and bilateral renal arteries are patent. However, sign ificant plaque throughout both proximal main renal arteries with relate d stenosis, right more so than left. Infrarenal abdominal aorta is 4.6 x 4.6 cm, relatively unchanged from previous exam. Both common iliac, i nternal iliac, external iliac arteries are patent. Procedure Note Tanner Starks MD - 11/26/2018 CTA CHEST, ABDOMEN AND PELVIS WITH CONTR AST 11/26/2018 9:03 AM HISTORY: 78-year-old patient with thorac ic aortic aneurysm as well as abdominal aortic aneurysm. Patient is st atus post TVAR on November 05, 2018. TECHNIQUE: Multiplanar, multiformatted C TA image obtained from the lung apices through the chest, abdomen, and pelvis before and after the uneventful administration of Isovue 370 intravenous contrast given for a total of 80 mL. Radiation dose for this scan was reduced using automated exposure control, adjustment o f the mA and/or kV according to patient size, or iterative reconstruc tion technique. Three-D reformatted images were created separate workstation. COMPARISON: September 29, 2018, evaluatio n of the chest and June 07, 2018, evaluation of the abdomen and pelv is. FINDINGS: The visible thyroid gland is u nremarkable. No abnormally enlarged mediastinal lymph nodes. Heart size is normal. No pericardial or pleural effusion. Linear opacities in left lower lobe are unchanged, likely scar formation. Overal l, pulmonary findings are relatively unchanged from previous exam. Old posterior left rib fractures or other defect unchanged. Justin gical fusion of the lower lumbar spine with diffuse intervertebral disc space narrowing. No acute osseous abnormality. Cholelithiasis, without complicating fea tures. The liver, spleen, adrenal glands, and pancreas are unremar kable. Renal hypodensities again identified and unchanged. No intra peritoneal fluid or air. The bladder is decompressed. Fluid collectio n noted overlying the left groin is 2.7 cm AP x 5.5 cm transverse, likely a seroma. Multiple enlarged lymph nodes, one of which measu res up to 2.5 x 1.5 cm. Old left inferior pubic ramus fracture. Ascending thoracic aorta is normal in si ze and appearance. Origins of the great arteries are widely patent. Ne w thoracic endograft is visible extending from the aortic arch j ust beyond the subclavian artery to near the celiac access at the diaphragmatic hiatus. There are tandem areas of aneurysmal dilatatio n in the thoracic aorta, the larger of which measures up to 4.8 cm in widest diameter, unchanged. The more inferior measures up to 5.2 cm in widest dimension, unchanged. No visible endoleak. The nav ac axis, SMA, and bilateral renal arteries are patent. However, sign ificant plaque throughout both proximal main renal arteries with relate d stenosis, right more so than left. Infrarenal abdominal aorta is 4.6 x 4.6 cm, relatively unchanged from previous exam. Both common iliac, i nternal iliac, external iliac arteries are patent. IMPRESSION: 1. New thoracic aortic endograft. Tandem areas of aneurysmal dilatation are relatively unchanged in s ize. No visible endoleak. Recommend annual surveillance. 2. Infrarenal abdominal aortic aneurysm measuring 4.6 x 4.6 cm, unchanged. 3. Somewhat irregular fluid collection i n left groin, likely postoperative seroma. Surrounding enlarg ed lymph nodes. TANNER STARKS MD Juan Lewis MD IMG CT ORDERABLES documented in this encounter Visit Diagnoses Diagnosis Thoracic aortic aneurysm (H) Thoracic aneurysm without mention of rup ture documented in this encounter Administered Medications Inactive Administered Medications - up to 3 most recent administrations Medication Order MAR Action Action Date Dose Rate Site iopamidol (ISOVUE-370) solution 80 Given 11/26/2018 8:30 AM FAN INSTALLER 80 mLs mL 80 mL, Intravenous, ONCE, On Thu11/26/18 at 0830, For 1 dose Saline Flush Given 11/26/2018 8:30 AM FAN INSTALLER 80 mLs Intravenous, 80 mL, ONCE, On Thu11/26/18 at 0830, For 1 dose, This entry is for use by Radiology to intermittently used as a flush in patients receiving a CT scan. documented in this encounter Additional Health Concerns Infection Onset Date Last Indicated Resolved Time MRSAComment: Positive 02/17/11 and 09/22/12 11/05/2018 019 Negatives 05/03/14 (HE), 12/01/14 (HE) documented as of this encounter Care Teams Aix Administrator Relationship Specialty Start Date End Date [facility] [place] PCP - General 05/12/[address] [place] [id number] documented as of this encounter
--- OUTSIDE RECORDS SUMMARY | 2022-05-28 05:03 | XMS_ITS | Encounter Summary ---
:1940 Author Organization [place] Address [address] [facility] [place] [address] Care Team Providers Name Role Phone [facility], [facility] Primary Care Provider [phone] Reason for Referral Diagnostic Imaging CT Scan - Closed Specialty Diagnoses / Procedures Referred By Contact Refer red To Contact Radiology. Diagnoses Thoracic aortic aneurysm (H) Juan Lewis MD Ct Scan Procedures CTA Chest Abdomen Pelvis w Contrast [address] [place] [address] [place] [phone] Referral ID Status Reason Start Date Expiration Date Visits Requ ested Visits Authorized [id number] Closed 11/12/2018 11/12/2019 1 1 UCT COMMUNICATIONS MANAGER Encounter Details Date Type Department Care Team Description 11/12/2018 [facility] Only [facility] Juan Lewis Thoracic aortic Vascular Clinic Félix Nava MD aneurysm (H) (Primary [address] Dx ) [address] [place] [address] [place] [id number] Social History Tobacco Use Types Packs/Day Years [...] on filedocumented as of this encounter Results CTA Chest Abdomen Pelvis w Contrast (11/26/2018 9:03 AM PRODUCT COMMUNICATIONS MANAGER) Anatomical Region Laterality Modality Lower Extremity, SUBRAD IR PROCEDURE, UMP CT CTA, RAD Computed Tomography CT Specimen (Source) Anatomical Location Collection Method / Collectio n Time Received Time / Laterality Volume Impressions 11/26/2018 4:44 PM PRODUCT COMMUNICATIONS MANAGER IMPRESSION: 1. New thoracic aortic endograft. Tandem areas of aneurysmal dilatation are relatively unchanged in s ize. No visible endoleak. Recommend annual surveillance. 2. Infrarenal abdominal aortic aneurysm measuring 4.6 x 4.6 cm, unchanged. 3. Somewhat irregular fluid collection i n left groin, likely postoperative seroma. Surrounding enlarg ed lymph nodes. TANNER STARKS MD Narrative 11/26/2018 4:44 PM PRODUCT COMMUNICATIONS MANAGER CTA CHEST, ABDOMEN AND PELVIS WITH CONTRAST [...] Thoracic aneurysm without mention of rup ture Thoracic aortic aneurysm (H) Thoracic aneurysm without mention of rup ture documented in this encounter Additional Health Concerns Infection Onset Date Last Indicated Resolved Time MRSAComment: Positive 02/17/11 and 09/22/12 11/05/2018 019 Negatives 05/03/14 (HE), 12/01/14 (HE) documented as of this encounter Care Teams Bee Worker Relationship Specialty Start Date End Date [facility], [facility] PCP - General 05/12/17 [address] [place] [address] documented as of this encounter
--- OUTSIDE RECORDS SUMMARY | 2022-05-28 05:03 | XMS_ITS | Encounter Summary ---
:1940 Author Organization [place] Address On license of [facility] [place] [address] Care Team Providers Name Role Phone Clinic, [facility] Primary Care Provider [phone] Reason for Referral Therapeutic Imaging/IR - Closed Specialty Diagnoses / Procedures Referred By Contact Refer red To Contact Diagnoses Descending thoracic aortic aneurysm (H) Juan Lewis MD Procedures IR Thoracic Endovascular Stent Graft [address] [place] [address] Referral ID Status Reason Start Date Expiration Date Visits Requ ested Visits Authorized [id number] Closed 10/28/2018 10/28/2019 1 1 S CYLINDER FLANGER Reason for Visit Auth/Cert Specialty Diagnoses / Procedures Referred By Contact Refer red To Contact Surgery Diagnoses DESCENDING THORACIC AORTIC ANEURYSM Sh Periop Services Procedures ENDOVASCULAR REPAIR ANEURYSM THORACIC AORTIC [address] [place] [address] Phone: Referral ID Status Reason Start Date Expiration Date Visits Requ ested Visits Authorized [id number] 1 1 Encounter Details Date Type Department Care Team Description 11/05/2018 - Hospital Encounter [facility] Elizabeth Lewis MD [address] [place] [id number] Thoracic aortic aneurysm without rupture (H) (Primary Dx); 11/09/2018 Gallito Sommers MD [address] [place] [id number] Descending thoracic aortic aneurysm (H) Intermediate Care Butch Brown MD [address] [place] [id number] [address] [phone] Social History Tobacco Use Types Packs/Day Years [...] Sign Reading Time Taken Comments Blood Pressure 158/88 11/09/2018 8:28 AM [facility] FLANGER Pulse 100 11/09/2018 5:00 AM [facility]ANGER Temperature 36.6 ??C (97.9 ??F) 11/09/2018 7:31 AM [facility]ANG[facility] Respiratory Rate 22 11/09/2018 8:00 AM [facility]ER FLANGER Oxygen Saturation 93% 11/09/2018 5:00 AM [facility]ANG[facility] Inhaled Oxygen Concentration - - Weight 87.3 kg (192 lb 7.4 oz) 11/09/2018 6:39 AM [facility] FLANGER Height 167.6 cm (5' 6) 11/05/2018 6:27 AM [facility] CYLINDER FLANGER Body Mass Index 31.06 11/05/2018 6:27 AM [facility] CYLINDER FLANGER documented in this encounter Discharge Summaries Bessy Mccray MD - 11/09/2018 10:56 AM CST Physician Discharge Summary Patient ID: Speedy Hendricks [id number] 78 year old 1940 Admit date: 11/05/2018 [...] an oral diet. He was discharged to [facility] on POD#4 in stable condition. Consults: pulmonary/intensive [...] to. Signed: Bessy Mccray 11/09/2018 10:56 AM S CYLINDER FLANGER Associated attestation - Juan Lewis MD - 11/11/2018 3:10 PM [facility] FLANGER Physician Attestation I, Juan Lewis, have reviewed [...] Traylor RN - 11/09/2018 11:47 AM CST S CYLINDER FLANGER AttachmentsThe following attachments cannot be sent through Care Everywhere.(S) TREATING A THORACIC AORTIC ANEURYSM (TAA): ENDOVASCULAR GRAFT (LITHUANIAN) documented in this encounter Medications at Time [...] home with family via car.All questions answered. S CYLINDER FLANGER Gurwinder Godoy MD - 11/09/2018 12:02 PM CST [facility] Vascular Medicine Progress Note Date of Service (when I saw the patient): 11/09/2018 Physician Supervisory Attestation: I have reviewed and discussed with the physician assistant professor of history their history, physical and plan and independently [...] Discussed with vascular surgery service. Gurwinder Godoy MD,[facility] Vascular Medicine service 11/09/2018 Assessment & Plan [...] Rate: 93 Resp: 22 SpO2: 93 % K2Cpffxv: None (Room air) Vitals: 11/06/18 0211 11/07/18 [...] = values in this interval not displayed. S CYLINDER FLANGER Bessy Mccray MD - 11/09/2018 7:36 AM [...] Bessy Martinez MD Vascular Surgery Fellow Pager S CYLINDER FLANGER Associated attestation - Butch Brown MD - 11/16/2018 9:50 AM GLASS CYLINDER FLANGER I was involved with the assessment and plan, and I agree with the findings and plan of care as documented in the fellow's note. MD Wilfredo Castlilo Carley, JOSE - 11/08/2018 6:35 PM CST Pt arrived to station 33 @ 1820 S [facility]INDER FLANGER Aura Crooks RN - 11/08/2018 5:05 PM CST Pt had drained removed this AM. Draining moderate amount- MDA aware. SR. BP wnl- gave hydralazine x1prn. Chapman to be removed prior to transfer. Lines out and hemostasis achieved. Up to chair- tolerated well, SBA. Frequent neuros- wnl. Will call report to [facility] and will transfer at p. S CYLINDER FLANGER Dimas Chapman MD - 11/08/2018 12:41 PM CST [facility] Vascular Medicine Progress Note Date of Service [...] -- AST 19 -- -- -- -- S CYLINDER FLANGER Bessy Mccray MD - 11/08/2018 8:18 AM [...] Bessy Martinez MD Vascular Surgery Fellow Pager S [facility]LINDER FLANGER Associated attestation - Butch Brown MD - 11/16/2018 3:00 PM [facility] CYLINDER FLANGER I was involved with the assessment and [...] please contact primary service first. Kaleb Rodriguez S CYLINDER FLANGER Kristy Castañeda RN - 11/08/2018 6:50 AM CST [address] Tobin at bedside and removed lumbar drain. Pt tolerated well. Neuro checks q 30 min for the next 6 hours. Dry gaze and Tegaderm to site. Kristy Gamez RN Zakia Vyas MD - 11/08/2018 6:47 AM CST Anesthesiology [...] any neuro changes. ?? Zakia Tobin MD. S CYLINDER FLANGER Bart Feliciano MD - 11/07/2018 3:39 PM CST Spoke [...] drain tubing following unclamping[place] [address] down from 100s yesterday. At this time, [...] with any neuro changes. Bart Feliciano MD. S CYLINDER FLANGER Christina Burrell MD - 11/07/2018 3:03 PM CST VASCULAR [...] Christina Burrell MD Vascular Surgery Fellow Pgr S CYLINDER FLANGER Bishop Tran MD - 11/07/2018 11:55 AM CST Turn Operator: S: Mild groin pain this morning, but [...] Dr. Staley of vascular medicine at bedside. Turn Operator service will sign off for now. Please re-consult as needed. S [place]INDER FLANGER Gurwinder Godoy MD - 11/07/2018 9:09 AM CST [facility] Vascular Medicine Progress Note Date of Service [...] If any change in neuro status contact [facility] surgery first and consider neurocritical care to [...] good Reviewed last night events, discussed with Turn Operator and ICU nursing staff this am. Patients [...] . Avoid nephrotoxic meds. ?? Gurwinder Godoy MD,[facility] Vascular Medicine Interval History Reviewed last night [...] 7.8* 8.6 -- GLC 115* 121* -- S CYLINDER FLANGER Danette Peck RN - 11/07/2018 8:50 AM [...] to keep SBP <160 and MAP >80. S CYLINDER FLANGER Gurwinder Godoy MD - 11/06/2018 12:00 PM CST [facility] Vascular Medicine Progress Note Date of Service [...] . Avoid nephrotoxic meds. ?? Gurwinder Godoy MD,[facility] Vascular Medicine Interval History Reviewed last night [...] 7.8* 8.6 -- GLC 115* 121* -- S CYLINDER FLANGER Millie Handley APRN RACK PRODUCTION WORKER - 11/06/2018 11:55 AM CST Critical Care [...] Total critical care time today 35 min. S CYLINDER FLANGER Associated attestation - Bishop Tran MD - 11/12/2018 10:50 AM [facility] FLANGER Physician Attestation I, Bishop Tran, have reviewed [...] sufficient urine. Continue plan as documented in AUTO ELECTRICIAN note. The patient does not seem to [...] for the 11/05/2018 admission is complete. See [facility] admission navigator for prior to admission medications Medication history source reliability:Good Medication history interview source(s):Patient Medication history resources (including written lists, pill bottles, clinic record):Patient mailed in his medication list prior to surgery Primary pharmacy.[facility] Additional medication history information not noted on SUPERVISOR CLAIMS med list :None Time spent in this [...] Bedtime 11/04/2018 at 2200 Yes Reported, Patient S CYLINDER FLANGER documented in this encounter Procedure Notes Missael [...] management per anethesia/vasc surg Missael Garcia MD [phone] S CYLINDER FLANGER documented in this encounter Consult Notes Kaleb Rodriguez NP - 11/05/2018 5:14 PM CSTAssociated Order(s): VALVER IP CONSULT [facility] Consult Critical Care Service Date of Admission: [...] Code Status Full Code Primary Care Physician [facility] Chief Complaint S/p TEVAR History of Present [...] it with pertinent information if needed. Speedy Fatuma Hendricks reports that he quit smoking about [...] IR Lumbar Drain Placement w Fluoro Narrative [facility] INTERVENTIONAL NEURORADIOLOGY PROCEDURAL NOTE FLUOROSCOPICALLY GUIDED PERCUTANEOUS [...] CPT codes included for physician reference only: 94710/14586 MISSAEL GARCIA MD Glucose by meter Result Value Ref Range Glucose 124 (H) 70 - 99 mg/dL S CYLINDER FLANGER Associated attestation - Olive Bello MD - 11/05/2018 10:58 PM [facility]LINDER FLANGER ICU STAFF: I have discussed Mr. Hendricks's [...] management per vascular surgery. Olive Bello MD #[id number] 11/05/18 Bill as Advanced Practice Provider only. Gurwinder Godoy MD - 11/05/2018 1:40 PM CST [facility] Vascular [facility] Consultation Date of Admission: 11/05/2018 Date of Consult (When I saw the patient): 11/05/18 Physician Supervisory Attestation: I have reviewed and discussed with the physician assistant professor of history their history, physical and plan and independently [...] consult Copy to Dr. Debbie Godoy MD ,[facility] Vascular Medicine 11/05/2018 Assessment & Plan 1. [...] 78 year old male Primary Care Physician [facility] History of Present Illness Speedy Hendricks is [...] Recent 3 INR's: Recent Labs Lab Test 11/14/17 2329 INR 0.96 Most Recent Cholesterol Panel: Recent Labs Lab Test 11/05/18 0655 CHOL 128 LDL 44 HDL 59 TRIG 125 Most Recent Hemoglobin A1c: Recent Labs Lab Test 11/05/18 0655 A1C 5.2 S CYLINDER FLANGER documented in this encounter Nursing Notes Isis Rivera RN - 11/05/2018 8:40 AM CST Noted swelling left ankle S CYLINDER FLANGER documented in this encounter Miscellaneous Notes Plan [...] sites soft, bruised, CMS intact. Voiding okay. S CYLINDER FLANGER Plan of Care - Misty Villalobos RN - 11/08/2018 7:10 PM CST A/O x4. AVSS on RA. Tele NSR. Hydralazine given x1. Up SBA. Neuros intact. CMS intact. Groin sites, steri strips. Back site, moist drainage. Pulses, palpable, +2. Regular diet. Chapman removed at 1740, Due to void. S CYLINDER FLANGER Provider Notification - Aura Crooks RN - 11/08/2018 11:37 AM CST MD NOTIFICATION Person Notified: MDA Notified Person's Name: Yeimi Notification Date/Time: 11/08/2017 1135 Notification Interaction: Paged physician Purpose of Notification: Pt remains to have drainage from lumbar drain site. Orders Received: MDA to come assess pt. S CYLINDER FLANGER Plan of Care - Kristy Castañeda RN [...] access readiness for lumbar drain removal today. S CYLINDER FLANGER Provider Notification - Kristy Castañeda RN - [...] assess pulling the drain. Kristy Castañeda RN S CYLINDER FLANGER Plan of Care - Aura Crooks RN - 11/07/2018 6:17 PM CST Neuro: LUCAS- strength 5/5. PERRL. Complains of soreness in groin/hips from moving them too much. Ptup in chair for a hour and tolerated well. Ok'd with Anesthesia MD, [place], to get up in chair forno more [...] some blood in tubing- Anesthesia MD aware. S CYLINDER FLANGER Plan of Care - Danette Peck RN - 11/07/2018 1:12 PM CST [id number] Continued with numbness bilateral top of thighs. [...] and dtr in room when Drs here. S CYLINDER FLANGER Provider Notification - Ramiro Lozano RN - 11/07/2018 6:17 AM CST Paged vascular surgery fellow Ashanti regarding new numbness to anterior thighs. CSF has been drained, will begin 500ml bolus unless directed otherwise. S CYLINDER FLANGER Plan of Care - Ramiro Lozano RN [...] clamped now. Daughter Raquel updated this morning. S CYLINDER FLANGER Provider Notification - Ramiro Lozano RN - 11/07/2018 5:[address] Wang regarding new leg pain and ICP increase. Opening drain for 15ml CSF over 1 hr per order. S CYLINDER FLANGER Plan of Care - Danette Peck RN - 11/06/2018 4:34 PM CST [id number] Neuro checks remain intact. Able to move [...] be retested for MRSA per infection control. S CYLINDER FLANGER Plan of Care - Ramiro Lozano RN [...] this shift. Daughter Raquel updated this morning. S CYLINDER FLANGER Plan of Care - Danette Peck RN - 11/05/2018 9:43 PM CST [id number] Neuro: intact. Able to move hips slightly due to keeping legs straight. No numbness or tingling. Lumbar drain draining clear liquid. Open until Dr kay and clamped per order. Pressure 10-15 cm [...] by physicians. Care transferred to next nurse. S CYLINDER FLANGER Provider Notification - Ramiro Lozano RN - 11/05/2018 7:46 PM CST Notified senior architect/design manager regarding failure to meet MAP goal of 80, new orders received. S CYLINDER FLANGER Op Note - Butch Brown MD - [...] descending aortic angiogram SURGEON: Butch Brown MD MANAGER NICU: Kannan Morse MD; Bessy Mas MD - [...] then able to upsized to a 6 Ghanaian sheath over a Bentson wire.The patient was [...] femoral artery and upsized to an 11 Ghanaian sheath. We then able to insert JULIANE [...] was removed and backfilled with a 16 Ghanaian dry seal on the left.At this point [...] superficial femoral artery access which was 6 Ghanaian sheath with an Angio-Seal closure device performed [...] the drain. Butch Brown MD Vascular Surgery S CYLINDER FLANGER Brief Op Note - Bessy Mccray MD - 11/05/2018 12:29 PM CST [facility] Brief Operative Note Pre-operative diagnosis: DESCENDING THORACIC [...] Palp DP bilaterally Complications: None. Implants: None. S CYLINDER FLANGER Associated attestation - Butch Brown MD - 11/05/2018 1:09 PM [facility] CYLINDER FLANGER Butch Brown MD IR Note - Gwen Rivas RN - 11/05/2018 10:27 AM CST Interventional Radiology Intra-procedural Nursing Note Patient Name: Speedy Hendricks Today's Date: November 05, 2018 Start Time: 0850 End of procedure time: 904 Procedure: lumbar drain placement Report given to: Dr. See, anesthesia Time pt departs: 919 Campus Chaplain: n/a Other Notes: patient tolerated well. Drain connected to closed drainage system flushed with preservative free NS per Dr. Haro. 1mg Versed and 50mcg Fentanyl IV given for additional sedation (had received 4mg Versed and 100mcg Fentanyl in pre-op prior to arrival). SR on monitor .VSS. Patient taken back to pre-op bay in stable condition. Gwen Rivas RNgroup director experience Radiology S CYLINDER FLANGER documented in this encounter Plan of Treatment Not on filedocumented as of this encounter Procedures Procedure Name Priority Date/Time Associated Comments Diagnosis CBC WITH PLATELETS & Routine 11/09/2018 7:41 AM Descending tho racic Results for this DIFFERENTIAL [facility] FLANGER aortic aneurysm (H) procedur e are in the results section. COMPREHENSIVE Routine 11/09/2018 7:41 AM Descending thoracic R esults for this METABOLIC PANEL [facility] CY[facility]INDER FLANGER aortic aneurysm (H) proce dure are in the results section. MAGNESIUM Routine 11/08/2018 3:40 AM Descending thoracic Re sults for this [facility] FLANGER aortic aneurysm (H) procedur e are in the results section. COMPREHENSIVE Routine 11/08/2018 3:40 AM Descending thoracic R esults for this METABOLIC PANEL [facility] CYLINDER FLANGER aortic aneurysm (H) proce dure are in the results section. CBC WITH PLATELETS Routine 11/08/2018 3:40 AM Descending thora cic Results for this [facility] CYLINDER FLANGER aortic aneurysm (H) procedur e are in the results section. CBC WITH PLATELETS STAT 11/07/2018 3:00 PM Descending thora cic Results for this [facility] CYLINDER FLANGER aortic aneurysm (H) procedur e are in the results section. CBC WITH PLATELETS & Timed 11/07/2018 9:50 AM Descending tho racic Results for this DIFFERENTIAL [facility] [facility]INDER FLANGER aortic aneurysm (H) procedur e are in the results section. MAGNESIUM Routine 11/07/2018 9:50 AM Descending thoracic Re sults for this [facility] CYLINDER FLANGER aortic aneurysm (H) procedur e are in the results section. BASIC METABOLIC PANEL Timed 11/07/2018 9:50 AM Descending th oracic Results for this [facility] CYLINDER FLANGER aortic aneurysm (H) procedur e are in the results section. GLUCOSE BY METER Routine 11/07/2018 7:44 AM Descending thoraci c Results for this [facility]ER FLANGER aortic aneurysm (H) procedur e are in the results section. GLUCOSE BY METER Routine 11/07/2018 3:49 AM Descending thoraci c Results for this [facility] [facility]LINDER FLANGER aortic aneurysm (H) procedur e are in the results section. GLUCOSE BY METER Routine 11/07/2018 12:08 Descending thoracic Results for this AM [facility] CYLINDER FLANGER aortic aneurysm (H) procedur e are in the results section. GLUCOSE BY METER Routine 11/06/2018 7:53 PM Descending thoraci c Results for this [facility] CYLINDER FLANGER aortic aneurysm (H) procedur e are in the results section. GLUCOSE BY METER Routine 11/06/2018 11:02 Descending thoracic Results for this AM [facility]LINDER FLANGER aortic aneurysm (H) procedur e are in the results section. GLUCOSE BY METER Routine 11/06/2018 7:38 AM Descending thoraci c Results for this [facility] CYLINDER FLANGER aortic aneurysm (H) procedur e are in the results section. LACTIC ACID WHOLE Routine 11/06/2018 4:15 AM Descending thorac ic Results for this BLOOD [facility] CYLINDER FLANGER aortic aneurysm (H) procedur e are in the results section. BASIC METABOLIC PANEL Routine 11/06/2018 4:15 AM Descending th oracic Results for this GL[facility] CYLINDER FLANGER aortic aneurysm (H) procedur e are in the results section. CBC WITH PLATELETS Routine 11/06/2018 4:15 AM Descending thora cic Results for this [facility] CYLINDER FLANGER aortic aneurysm (H) procedur e are in the results section. GLUCOSE BY METER Routine 11/06/2018 1:12 AM Descending thoraci c Results for this [facility] CYLINDER FLANGER aortic aneurysm (H) procedur e are in the results section. MRSA MSSA PCR, NASAL STAT 11/05/2018 11:41 Descending thora cic Results for this SWAB PM [facility] CYLINDER FLANGER aortic aneurysm (H) procedur e are in the results section. GLUCOSE BY METER Routine 11/05/2018 8:16 PM Descending thoraci c Results for this [facility] CYLINDER FLANGER aortic aneurysm (H) procedur e are in the results section. GLUCOSE BY METER Routine 11/05/2018 4:39 PM Descending thoraci c Results for this GL[place] CYLINDER FLANGER aortic aneurysm (H) procedur e are in the results section. INR STAT 11/05/2018 4:35 PM Descending thoracic Re sults for this [facility] CYLINDER FLANGER aortic aneurysm (H) procedur e are in the results section. LACTIC ACID WHOLE STAT 11/05/2018 4:35 PM Descending thorac ic Results for this BLOOD [facility] CYLINDER FLANGER aortic aneurysm (H) procedur e are in the results section. BASIC METABOLIC PANEL STAT 11/05/2018 4:35 PM Descending th oracic Results for this [facility] CYLINDER FLANGER aortic aneurysm (H) procedur e are in the results section. CBC WITH PLATELETS STAT 11/05/2018 4:35 PM Descending thora cic Results for this [facility] CYLINDER FLANGER aortic aneurysm (H) procedur e are in the results section. IR THORACIC Routine 11/05/2018 12:09 Descending thoracic Resu lts for this ENDOVASCULAR STENT PM GLASS CYLINDER FLANGER aortic aneurysm (H) pr ocedure are in GRAFT the results section. REPAIR, ANEURYSM, 11/05/2018 9:35 AM DESCENDING THORAC IC THORACIC AORTIC, GLASS CYLINDER FLANGER AORTIC ANEURYSM ENDOVASCULAR Special Needs BLOOD TRANSFUSION ISSUE (RAR E ANTIBODIES) PT WILL DO A TYPE AND CROSS ON 11/03 JALEEL 10/28 IR LUMBAR DRAIN Routine 11/05/2018 9:10 AM Result s for this PLACEMENT W FLUORO GLASS CYLINDER FLANGER procedure are in the results section. EKG 12-LEAD, TRACING STAT 11/05/2018 6:58 AM R esults for this ONLY GLASS CYLINDER FLANGER procedure are i n the results section. POTASSIUM STAT 11/05/2018 6:55 AM Descending thoracic Re sults for this [facility] CYLINDER FLANGER aortic aneurysm (H) procedur e are in the results section. LIPID PROFILE STAT 11/05/2018 6:55 AM Descending thoracic R esults for this [facility] CYLINDER FLANGER aortic aneurysm (H) procedur e are in the results section. HEMOGLOBIN A1C STAT 11/05/2018 6:55 AM Descending thoracic Results for this [facility] CYLINDER FLANGER aortic aneurysm (H) procedur e are in the results section. CREATININE STAT 11/05/2018 6:55 AM Descending thoracic Re sults for this [facility] CYLINDER FLANGER aortic aneurysm (H) procedur e are in the results section. XR CHEST PORT 1 VIEW STAT 11/05/2018 6:40 AM R esults for this GLASS CYLINDER FLANGER procedure are i n the results section. EKG CARDIAC - HIM 09/24/2018 12:00 AM SCAN GLASS CYLINDER FLANGER documented in this encounter Results (ABNORMAL) CBC with platelets differential (11/09/2018 7:41 AM [facility]) Component Value Ref Test Analysis Performed At [facility] Range Method Time Signature WBC 9.3 4.0 - 11/09/2018 [facility] 11.0 8:06 AM [place] [id number] RBC Count 3.55 (L) 4.4 - 11/09/2018 [facility] 5.9 8:06 AM [place] [id number] Hemoglobin 11.3 (L) 13.3 - 11/09/2018 [facility] 17.7 8:06 AM [facility] Hematocrit 33.7 (L) 40.0 - 11/09/2018 [facility] 53.0 % 8:06 AM [facility] MCV 95 78 - 100 11/09/2018 [facility] fl 8:06 AM [facility] MCH 31.8 26.5 - 11/09/2018 [facility] 33.0 pg 8:06 AM [facility] MCHC 33.5 31.5 - 11/09/2018 [facility] 36.5 8:06 AM [facility] RDW 13.9 10.0 - 11/09/2018 [facility] 15.0 % 8:06 AM [facility] Platelet Count 83 (L) 150 - 11/09/2018 [facility] 450 8:[address] Diff Method Manual 11/09/2018 [facility] Differential 8:31 AM [facility] % Neutrophils 85.0 % 11/09/2018 [facility] 8:31 AM [facility] % Lymphocytes 6.0 % 11/09/2018 [facility] 8:31 AM [facility] % Monocytes 7.0 % 11/09/2018 [facility] 8:31 AM [facility] % Eosinophils 2.0 % 11/09/2018 [facility] 8:31 AM [facility] % Basophils 0.0 % 11/09/2018 [facility] 8:31 AM [facility] Absolute 7.9 1.6 - 11/09/2018 [facility] Neutrophil 8.3 8:[address] Absolute 0.6 (L) 0.8 - 11/09/2018 [facility] Lymphocytes 5.3 8:[address] Absolute 0.7 0.0 - 11/09/2018 [facility] Monocytes 1.3 8:[address] Absolute 0.2 0.0 - 11/09/2018 [facility] Eosinophils 0.7 8:[address] Absolute 0.0 0.0 - 11/09/2018 [facility] Basophils 0.2 8:[address] RBC Morphology Consistent with 11/09/2018 [facility] reported results 8:31 AM [facility] Platelet Automated count 11/09/2018 [facility] Estimate confirmed. 8:31 AM [facility] morphology is normal. Specimen Anatomical Collection Method Collection Time Receive d Time (Source) Location / / Volume Laterality Blood specimen 11/09/2018 7:41 AM 019 7:51 (specimen) GLASS CYLINDER FLANGER AM [facility]ANG[facility] Dimas Chapman MD LAB - BLOOD ORDERABLES Performing Organization Address City/State/ZIP Code Phon e Number M [facility] [address] [address] [phone] [facility] [address] [address], [facility] [phone] (ABNORMAL) Comprehensive metabolic panel (11/09/2018 7:41 AM [facility]) P athologist Signature Sodium 144 133 - 144 11/09/2018 [place] mmol/L 8:11 AM [facility] Potassium 4.0 3.4 - 5.3 11/09/2018 [place] mmol/L 8:11 AM [facility] Chloride 113 (H) 94 - 109 11/09/2018 [place] mmol/L 8:11 AM [facility] Carbon Dioxide 22 20 - 32 11/09/2018 [place] mmol/L 8:17 AM [facility] Anion Gap 9 3 - 14 11/09/2018 [place] mmol/L 8:17 AM [facility] Glucose 94 70 - 99 11/09/2018 [place] mg/dL 8:17 AM [facility] Urea Nitrogen 21 7 - 30 11/09/2018 [place] mg/dL 8:17 AM [facility] Creatinine 1.24 0.66 - 11/09/2018 [place] 1.25 mg/dL 8:17 AM [facility] GFR Estimate 56 (L) >60 11/09/2018 [place] mL/min/{1. 8:17 AM [facility] 73_m2} HOSPITAL Comment: Non GFR Calc Starting 10/05/2018, serum creatinine ba sed estimated GFR (eGFR) will be calculated using the Chronic Kidney Dise [facility] Epidemiology Collaboration (CKD-EPI) equation. GFR Estimate If 65 >60 mL/min/{1.73_m2} 11/09/2018 8: 17 AM [facility] Comment: GFR Calc Starting 10/05/2018, serum creatinine ba sed estimated GFR (eGFR) will be calculated using the Chronic Kidney Dise [facility] Epidemiology Collaboration (CKD-EPI) equation. Calcium 8.4 (L) 8.5 - 10.1 11/09/2018 8:17 AM [facility] mg/dL [facility] Bilirubin Total 1.3 0.2 - 1.3 mg/dL 11/09/2018 8:19 AM [facility] Albumin 2.4 (L) 3.4 - 5.0 g/dL 11/09/2018 8:19 AM [facility] Protein Total 6.2 (L) 6.8 - 8.8 g/dL 11/09/2018 8:[address] [facility] Alkaline Phosphatase 72 40 - 150 U/L 11/09/2018 8:19 AM [facility] ALT 17 0 - 70 U/L 11/09/2018 8:19 AM [facility] AST 15 0 - 45 U/L 11/09/2018 8:19 AM [facility] Specimen Anatomical Collection Method Collection Time Receive d Time (Source) Location / / Volume Laterality Blood specimen 11/09/2018 7:41 AM 019 7:51 (specimen) [facility] AM [facility] Dimas Chapman MD LAB - BLOOD ORDERABLES Performing Organization Address City/State/ZIP Code Phon e Number [facility] [address] [address] [facility] [address] [place] [address], [place] [phone] Magnesium Level scheduled every Thu Wed Thu (11/08/2018 3:40 AM [facility]) P athologist Signature Magnesium 1.7 1.6 - 2.3 11/08/2018 [facility] mg/dL 4:06 AM [facility] Specimen Anatomical Collection Method Collection Time Receive d Time (Source) Location / / Volume Laterality Blood specimen 11/08/2018 3:40 AM 019 3:46 (specimen) [facility] AM [facility] Dimas Chapman MD LAB - BLOOD ORDERABLES Performing Organization Address City/State/ZIP Code Phon e Number [facility] [address] [place] [address] [phone] [facility] [address] [place] [address], [place] [phone] (ABNORMAL) Comprehensive metabolic panel (11/08/2018 3:40 AM [facility]) Analysis Performed At Patho logist Time Signature Sodium 142 133 - 144 11/08/2018 [facility] mmol/L 3:58 AM [facility] Potassium 4.2 3.4 - 5.3 11/08/2018 [facility] mmol/L 3:58 AM [facility] Chloride 111 (H) 94 - 109 11/08/2018 [facility] mmol/L 3:58 AM [facility] Carbon Dioxide 22 20 - 32 11/08/2018 [facility] mmol/L 4:04 AM [facility] Anion Gap 9 3 - 14 11/08/2018 [facility] mmol/L 4:04 AM [facility] Glucose 164 (H) 70 - 99 11/08/2018 [facility] mg/dL 4:04 AM [facility] Urea Nitrogen 20 7 - 30 11/08/2018 [facility] mg/dL 4:04 AM [facility] Creatinine 1.29 (H) 0.66 - 11/08/2018 [facility] 1.25 mg/dL 4:04 AM [facility] GFR Estimate 53 (L) >60 11/08/2018 [facility] mL/min/{1. 4:04 AM [facility] 73_m2} [facility] Comment: Non GFR Calc Starting 10/05/2018, serum creatinine ba sed estimated GFR (eGFR) will be calculated using the Chronic Kidney Dise [facility] Epidemiology Collaboration (CKD-EPI) equation. GFR Estimate If 62 >60 mL/min/{1.73_m2} 11/08/2018 4: 04 AM [facility] Comment: GFR Calc Starting 10/05/2018, serum creatinine ba sed estimated GFR (eGFR) will be calculated using the Chronic Kidney Dise [facility] Epidemiology Collaboration (CKD-EPI) equation. Calcium 8.2 (L) 8.5 - 10.1 11/08/2018 4:04 AM [facility] mg/dL [facility] Bilirubin Total 1.1 0.2 - 1.3 mg/dL 11/08/2018 4:06 AM [facility] Albumin 2.6 (L) 3.4 - 5.0 g/dL 11/08/2018 4:06 AM [facility] Protein Total 6.0 (L) 6.8 - 8.8 g/dL 11/08/2018 4:[address] [facility] Alkaline Phosphatase 62 40 - 150 U/L 11/08/2018 4:06 AM [facility] ALT 18 0 - 70 U/L 11/08/2018 4:06 AM [facility] AST 19 0 - 45 U/L 11/08/2018 4:06 AM [facility] Specimen Anatomical Collection Method Collection Time Receive d Time (Source) Location / / Volume Laterality Blood specimen 11/08/2018 3:40 AM 019 3:46 (specimen) [facility] AM [facility] Gurwinder Godoy MD LAB - BLOOD ORDERABLES Performing Organization Address City/State/ZIP Code Phon e Number [facility] [address] [address] [facility] [address] [address], U [phone] (ABNORMAL) CBC (AM Draw) (11/08/2018 3:40 AM [facility]) Analysis Performed At Patho logist Time Signature WBC 11.2 (H) 4.0 - 11.0 11/08/2018 [facility] 10e9/L 3:50 AM [facility] RBC Count 3.62 (L) 4.4 - 5.9 11/08/2018 [facility] 10e12/L 3:50 AM [facility] Hemoglobin 11.6 (L) 13.3 - 11/08/2018 [facility] 17.7 g/dL 3:50 AM [facility] Hematocrit 34.5 (L) 40.0 - 11/08/2018 [facility] 53.0 % 3:50 AM [facility] MCV 95 78 - 100 11/08/2018 [facility] fl 3:50 AM [facility] MCH 32.0 26.5 - 11/08/2018 [facility] 33.0 pg 3:50 AM [facility] MCHC 33.6 31.5 - 11/08/2018 [facility] 36.5 g/dL 3:50 AM [facility] RDW 13.9 10.0 - 11/08/2018 [facility] 15.0 % 3:50 AM [facility] Platelet Count 82 (L) 150 - 450 11/08/2018 [facility] 10e9/L 3:50 AM [facility] Specimen Anatomical Collection Method Collection Time Receive d Time (Source) Location / / Volume Laterality Blood specimen 11/08/2018 3:40 AM 019 3:46 (specimen) [facility] AM [facility] Gurwinder Godoy MD LAB - BLOOD ORDERABLES Performing Organization Address City/State/ZIP Code Phon e Number [facility] [address] [address] [facility] [address] [address], U [phone] (ABNORMAL) CBC with platelets (11/07/2018 3:00 PM [facility]) Analysis Performed At Patho logist Time Signature WBC 11.1 (H) 4.0 - 11.0 11/07/2018 [facility] 10e9/L 3:08 PM [facility] RBC Count 3.74 (L) 4.4 - 5.9 11/07/2018 [facility] 10e12/L 3:08 PM [facility] Hemoglobin 11.9 (L) 13.3 - 11/07/2018 [facility] 17.7 g/dL 3:08 PM [facility] Hematocrit 35.4 (L) 40.0 - 11/07/2018 [facility] 53.0 % 3:08 PM [facility] MCV 95 78 - 100 11/07/2018 [facility] fl 3:08 PM [facility] MCH 31.8 26.5 - 11/07/2018 [facility] 33.0 pg 3:08 PM [facility] MCHC 33.6 31.5 - 11/07/2018 [facility] 36.5 g/dL 3:08 PM [facility] RDW 14.1 10.0 - 11/07/2018 [facility] 15.0 % 3:08 PM [facility] Platelet Count 87 (L) 150 - 450 11/07/2018 [facility] 10e9/L 3:08 PM [facility] Specimen Anatomical Collection Method Collection Time Receive d Time (Source) Location / / Volume Laterality Blood specimen 11/07/2018 3:00 PM 019 3:05 (specimen) [facility] PM [facility] Bart Feliciano MD LAB - BLOOD ORDERABLES Performing Organization Address City/State/ZIP Code Phon e Number [facility] [address] [address] [phone] [place] [address] [address], [facility] [phone] Magnesium (11/07/2018 9:50 AM [facility]) P athologist Signature Magnesium 1.6 1.6 - 2.3 11/07/2018 [place] mg/dL 11:12 AM [facility] Specimen Anatomical Collection Method Collection Time Receive d Time (Source) Location / / Volume Laterality 11/07/2018 9:50 AM 9 [facility] 10:04 AM [facility] Gurwinder Godoy MD LAB - BLOOD ORDERABLES Performing Organization Address City/State/ZIP Code Phon e Number [facility] [address] [address] [place] [address] [place] [address], [place] [phone] (ABNORMAL) CBC with platelets differential (11/07/2018 9:50 AM [facility]) [facility] Method Time Signature WBC 10.4 4.0 - 11/07/2018 [facility] 11.0 10:13 AM [facility] 10e9/L [facility] RBC Count 3.63 (L) 4.4 - 5.9 11/07/2018 [facility] 10e12/L 10:13 AM [facility] Hemoglobin 11.5 (L) 13.3 - 11/07/2018 [facility] 17.7 g/dL 10:13 AM [facility] Hematocrit 34.3 (L) 40.0 - 11/07/2018 [facility] 53.0 % 10:13 AM [facility] MCV 95 78 - 100 11/07/2018 [facility] fl 10:13 AM [facility] MCH 31.7 26.5 - 11/07/2018 [facility] 33.0 pg 10:13 AM [facility] MCHC 33.5 31.5 - 11/07/2018 [facility] 36.5 g/dL 10:13 AM [facility] RDW 14.0 10.0 - 11/07/2018 [facility] 15.0 % 10:13 AM [facility] Platelet Count 82 (L) 150 - 450 11/07/2018 [facility] 10e9/L 10:37 AM [facility] Diff Method Automated 11/07/2018 [facility] Method 10:37 AM [facility] % Neutrophils 78.8 % 11/07/2018 [facility] 10:37 AM [facility] % Lymphocytes 6.2 % 11/07/2018 [facility] 10:37 AM [facility] % Monocytes 14.7 % 11/07/2018 [facility] 10:37 AM [facility] % Eosinophils 0.2 % 11/07/2018 [facility] 10:37 AM [facility] % Basophils 0.0 % 11/07/2018 [facility] 10:37 AM [facility] % Immature 0.1 % 11/07/2018 [facility] Granulocytes 10:37 AM [facility] Nucleated RBCs 0 0 /100 11/07/2018 [facility] 10:37 AM [facility] Absolute 8.2 1.6 - 8.3 11/07/2018 [facility] Neutrophil 10e9/L 10:37 AM [facility] Absolute 0.6 (L) 0.8 - 5.3 11/07/2018 [facility] Lymphocytes 10e9/L 10:37 AM [facility] Absolute 1.5 (H) 0.0 - 1.3 11/07/2018 [facility] Monocytes 10e9/L 10:37 AM [facility] Absolute 0.0 0.0 - 0.7 11/07/2018 [facility] Eosinophils 10e9/L 10:37 AM [facility] Absolute 0.0 0.0 - 0.2 11/07/2018 [facility] Basophils 10e9/L 10:37 AM [facility] Abs Immature 0.0 0 - 0.4 11/07/2018 [facility] Granulocytes 10e9/L 10:37 AM [facility] Absolute 0.0 11/07/2018 [facility] Nucleated RBC 10:37 AM [facility] Ovalocytes Slight 11/07/2018 [facility] 10:37 AM [facility] Platelet Automated 11/07/2018 [facility] Estimate count 10:37 AM [facility] confirmed. [facility] Platelet morphology is normal. Specimen Anatomical Collection Method Collection Time Receive d Time (Source) Location / / Volume Laterality Blood specimen 11/07/2018 9:50 AM 019 (specimen) [facility] 10:04 AM [facility] Gurwinder Godoy MD LAB - BLOOD ORDERABLES Performing Organization Address City/State/ZIP Code Phon e Number [facility] [address] [address] [facility] [address] [place] [address], [place] [phone] (ABNORMAL) Basic metabolic panel (11/07/2018 9:50 AM [facility]) Analysis Performed At Patho logist Time Signature Sodium 147 (H) 133 - 144 11/07/2018 [facility]/L 10:16 AM [facility] Potassium 4.1 3.4 - 5.3 11/07/2018 [facility] mmol/L 10:16 AM [facility] Chloride 117 (H) 94 - 109 11/07/2018 [place] mmol/L 10:16 AM [facility] Carbon Dioxide 20 20 - 32 11/07/2018 [place] mmol/L 10:23 AM [facility] Anion Gap 10 3 - 14 11/07/2018 [place] mmol/L 10:23 AM [facility] Glucose 108 (H) 70 - 99 11/07/2018 [place] mg/dL 10:23 AM [facility] Urea Nitrogen 23 7 - 30 11/07/2018 [place] mg/dL 10:23 AM [facility] Creatinine 1.47 (H) 0.66 - 11/07/2018 [place] 1.25 mg/dL 10:23 AM [facility] GFR Estimate 46 (L) >60 11/07/2018 [place] mL/min/{1. 10:23 AM [facility] 73_m2} [facility] Comment: Non GFR Calc Starting 10/05/2018, serum creatinine ba sed estimated GFR (eGFR) will be calculated using the Chronic Kidney Dise [facility] Epidemiology Collaboration (CKD-EPI) equation. GFR Estimate If 53 (L) >60 mL/min/{1.73_m2} 11/07/2018 10 :23 AM [place] Black [facility] Comment: GFR Calc Starting 10/05/2018, serum creatinine ba sed estimated GFR (eGFR) will be calculated using the Chronic Kidney Dise [facility] Epidemiology Collaboration (CKD-EPI) equation. Calcium 8.2 (L) 8.5 - 10.1 mg/dL 11/07/2018 10:23 AM [facility] Specimen Anatomical Collection Method Collection Time Receive d Time (Source) Location / / Volume Laterality Blood specimen 11/07/2018 9:50 AM 019 (specimen) [facility] 10:04 AM [facility] Gurwinder Godoy MD LAB - BLOOD ORDERABLES Performing Organization Address City/State/ZIP Code Phon e Number [facility] [address] [address] [facility] [address] [address], [place] [phone] (ABNORMAL) Glucose by meter (11/07/2018 7:44 AM [facility]) P athologist Signature Glucose 112 (H) 70 - 99 11/07/2018 [facility] mg/dL 7:56 AM [facility] TEST, GLUCOSE Specimen Anatomical Collection Method Collection Time Receive d Time (Source) Location / / Volume Laterality 11/07/2018 7:44 AM 9 7:56 [facility] AM [facility] Juan Lewis MD LAB - BEFOUZIA POCT Performing Organization Address [facility]/ZIP Code Phon e Number [facility] POINT OF CARE TEST, GLUCOSE POINT OF CARE TEST, GLUCOSE (ABNORMAL) Glucose by meter (11/07/2018 3:49 AM [facility]) P athologist Signature Glucose 105 (H) 70 - 99 11/07/2018 [facility] mg/dL 4:01 AM [facility] TEST, GLUCOSE Specimen Anatomical Collection Method Collection Time Receive d Time (Source) Location / / Volume Laterality 11/07/2018 3:49 AM 9 4:01 [facility] AM [facility] Juan YUAN - CAROLYN POCT Performing Organization Address City/[facility]/ZIP Code Phon e Number [facility] POINT OF CARE TEST, GLUCOSE POINT OF CARE TEST, GLUCOSE (ABNORMAL) Glucose by meter (11/07/2018 12:08 AM [facility]) P athologist Signature Glucose 119 (H) 70 - 99 11/07/2018 [facility] mg/dL 12:19 AM [facility] TEST, GLUCOSE Specimen Anatomical Collection Method Collection Time Receive d Time (Source) Location / / Volume Laterality 11/07/2018 12:08 11/07/2018 AM [facility] 12:19 AM [facility] Juan YUAN - BEFOUZIA POCT Performing Organization Address City/[facility]/ZIP Code Phon e Number [facility] POINT OF CARE TEST, GLUCOSE POINT OF CARE TEST, GLUCOSE (ABNORMAL) Glucose by meter (11/06/2018 7:53 PM [facility]) P athologist Signature Glucose 116 (H) 70 - 99 11/06/2018 [facility] mg/dL 8:04 PM [facility] TEST, GLUCOSE Specimen Anatomical Collection Method Collection Time Receive d Time (Source) Location / / Volume Laterality 11/06/2018 7:53 PM 9 8:04 [facility] PM [facility] Juan Elijah Debbie MD LAB - BEAKER POCT Performing Organization Address City/State/ZIP Code Phon e Number [facility] POINT OF CARE TEST, GLUCOSE POINT OF CARE TEST, GLUCOSE (ABNORMAL) Glucose by meter (11/06/2018 11:02 AM [facility]) P athologist Signature Glucose 109 (H) 70 - 99 11/06/2018 [facility] mg/dL 11:13 AM [facility] TEST, GLUCOSE Specimen Anatomical Collection Method Collection Time Receive d Time (Source) Location / / Volume Laterality 11/06/2018 11:02 11/06/2018 AM [facility] 11:13 AM [facility] Juan Lewis MD LAB - BEAKER POCT Performing Organization Address City/State/ZIP Code Phon e Number [facility] POINT OF CARE TEST, GLUCOSE POINT OF CARE TEST, GLUCOSE (ABNORMAL) Glucose by meter (11/06/2018 7:38 AM [facility]) P athologist Signature Glucose 104 (H) 70 - 99 11/06/2018 [facility] mg/dL 7:50 AM [facility] TEST, GLUCOSE Specimen Anatomical Collection Method Collection Time Receive d Time (Source) Location / / Volume Laterality 11/06/2018 7:38 AM 9 7:50 [facility] AM [facility] Juan YUAN - BEAKER POCT Performing Organization Address City/[facility]/ZIP Code Phon e Number [facility] POINT OF CARE TEST, GLUCOSE POINT OF CARE TEST, GLUCOSE Lactic acid whole blood (11/06/2018 4:15 AM [facility]) P athologist Signature Lactic Acid 1.4 0.7 - 2.0 11/06/2018 [place] mmol/L 4:40 AM [facility] Specimen Anatomical Collection Method Collection Time Receive d Time (Source) Location / / Volume Laterality Blood specimen 11/06/2018 4:15 AM 019 4:25 (specimen) [facility] FLANGER AM [facility] Bessy Mccray MD LAB - BLOOD ORDERABLES Performing Organization Address City/[facility]/ZIP Code Phon e Number [facility] [address] [address] [facility] [address] [address], [facility] [phone] (ABNORMAL) Basic metabolic panel (11/06/2018 4:15 AM [facility]) Analysis Performed At Patho logist Time Signature Sodium 142 133 - 144 11/06/2018 [facility] mmol/L 4:49 AM [facility] Potassium 4.4 3.4 - 5.3 11/06/2018 [facility] mmol/L 4:49 AM [facility] Chloride 113 (H) 94 - 109 11/06/2018 [facility] mmol/L 4:49 AM [facility] Carbon Dioxide 21 20 - 32 11/06/2018 [facility] mmol/L 4:54 AM [facility] Anion Gap 8 3 - 14 11/06/2018 [facility] mmol/L 4:54 AM [facility] Glucose 115 (H) 70 - 99 11/06/2018 [facility] mg/dL 4:54 AM [facility] Urea Nitrogen 27 7 - 30 11/06/2018 [facility] mg/dL 4:54 AM [facility] Creatinine 1.57 (H) 0.66 - 11/06/2018 [facility] 1.25 mg/dL 4:54 AM [facility] GFR Estimate 42 (L) >60 11/06/2018 [place] mL/min/{1. 4:54 AM [facility] 73_m2} [facility] Comment: Non GFR Calc Starting 10/05/2018, serum creatinine ba sed estimated GFR (eGFR) will be calculated using the Chronic Kidney Dise [facility] Epidemiology Collaboration (CKD-EPI) equation. GFR Estimate If 49 (L) >60 mL/min/{1.73_m2} 11/06/2018 4: 54 AM [place] Black [facility] Comment: GFR Calc Starting 10/05/2018, serum creatinine ba sed estimated GFR (eGFR) will be calculated using the Chronic Kidney Dise [facility] Epidemiology Collaboration (CKD-EPI) equation. Calcium 7.8 (L) 8.5 - 10.1 mg/dL 11/06/2018 4:54 AM [facility] Specimen Anatomical Collection Method Collection Time Receive d Time (Source) Location / / Volume Laterality Blood specimen 11/06/2018 4:15 AM 019 4:25 (specimen) [facility] AM [facility] Bessy Mccray MD LAB - BLOOD ORDERABLES Performing Organization Address City/State/ZIP Code Phon e Number [facility] [address] [place] [address] [facility] [address] [place] [address], [place] [phone] (ABNORMAL) CBC with platelets (11/06/2018 4:15 AM [facility]) Analysis Performed At Patho logist Time Signature WBC 12.9 (H) 4.0 - 11.0 11/06/2018 [facility] 10e9/L 4:45 AM [facility] RBC Count 3.93 (L) 4.4 - 5.9 11/06/2018 [facility] 10e12/L 4:45 AM [facility] Hemoglobin 12.5 (L) 13.3 - 11/06/2018 [facility] 17.7 g/dL 4:45 AM [facility] Hematocrit 36.8 (L) 40.0 - 11/06/2018 [facility] 53.0 % 4:45 AM [facility] MCV 94 78 - 100 11/06/2018 [facility] fl 4:45 AM [facility] MCH 31.8 26.5 - 11/06/2018 [facility] 33.0 pg 4:45 AM [facility] MCHC 34.0 31.5 - 11/06/2018 [facility] 36.5 g/dL 4:45 AM [facility] RDW 13.2 10.0 - 11/06/2018 [facility] 15.0 % 4:45 AM [facility] Platelet Count 153 150 - 450 11/06/2018 [facility] 10e9/L 4:45 AM [facility] Specimen Anatomical Collection Method Collection Time Receive d Time (Source) Location / / Volume Laterality Blood specimen 11/06/2018 4:15 AM 019 4:25 (specimen) [facility] AM [facility] Bessy Mccray MD LAB - BLOOD ORDERABLES Performing Organization Address City/State/ZIP Code Phon e Number [facility] [address] [place] [address] [phone] [facility] [address] [address], [place] [phone] (ABNORMAL) Glucose by meter (11/06/2018 1:12 AM [facility]) P athologist Signature Glucose 126 (H) 70 - 99 11/06/2018 [facility] mg/dL 1:24 AM [facility] TEST, GLUCOSE Specimen Anatomical Collection Method Collection Time Receive d Time (Source) Location / / Volume Laterality 11/06/2018 1:12 AM 9 1:24 [facility] AM [facility] Juan Lewis MD LAB - BEAKER POCT Performing Organization Address City/State/ZIP [facility] Phon e Number FV POINT OF CARE TEST, GLUCOSE POINT OF CARE TEST, GLUCOSE Methicillin Resist/Sens S. aureus PCR (11/05/2018 11:41 PM [facility]) [facility] gist Method Time Signature Specimen Nares 11/05/2018 [place] Description 11:45 PM [facility] Methicillin Negative NEG^Negat 11/06/2018 [facility] Resist/Sens S. shin 2:36 AM [facility] aureus PCR [facility] Comment: MRSA Negative: SA Negative ??MRSA and St aphylococcus aureus target DNA not detected, presumed negative for MRSA and SA colonization or the number of bacteria present may be below the limit of detection for the assay. FDA approved assay performed using [employer] eneXpert(R) real-time PCR. Specimen (Source) Anatomical Collection Method Collection Time Re ceived Time Location / / Volume Laterality Nasal structure 11/05/2018 11:41 11/06/19 19 (body structure) PM [facility] Bessy Mccray MD LAB - MICRO GENERAL ORDERABL ES Performing Organization Address City/[facility] Code Phon e Number [facility] [address] [place] [address] [facility] [address] [place] [address], U [phone] (ABNORMAL) Glucose by meter (11/05/2018 8:16 PM [facility]) P athologist Signature Glucose 128 (H) 70 - 99 11/05/2018 [facility] mg/dL 8:28 PM [facility] TEST, GLUCOSE Specimen Anatomical Collection Method Collection Time Receive d Time (Source) Location / / Volume Laterality 11/05/2018 8:16 PM 9 8:28 [facility] PM [facility] Juan Lewis MD LAB - BEFOUZIA POCT Performing Organization Address City/State/ZIP Code Phon e Number [facility] POINT OF CARE TEST, GLUCOSE POINT OF CARE TEST, GLUCOSE (ABNORMAL) Glucose by meter (11/05/2018 4:39 PM [facility]) P athologist Signature Glucose 124 (H) 70 - 99 11/05/2018 [facility] mg/dL 4:50 PM [facility] TEST, GLUCOSE Specimen Anatomical Collection Method Collection Time Receive d Time (Source) Location / / Volume Laterality 11/05/2018 4:39 PM 9 4:50 [facility] PM [facility] Juan Lewis MD LAB - BEFOUZIA POCT Performing Organization Address City/State/ZIP Code Phon e Number [facility] POINT OF CARE TEST, GLUCOSE POINT OF CARE TEST, GLUCOSE (ABNORMAL) CBC with platelets (11/05/2018 4:35 PM [facility]) Analysis Performed At Patho logist Time Signature WBC 7.3 4.0 - 11.0 11/05/2018 [facility] 10e9/L 5:22 PM [facility] RBC Count 4.35 (L) 4.4 - 5.9 11/05/2018 [facility] 10e12/L 5:22 PM [facility] Hemoglobin 13.7 13.3 - 11/05/2018 [facility] 17.7 g/dL 5:22 PM [facility] Hematocrit 40.9 40.0 - 11/05/2018 [facility] 53.0 % 5:22 PM [facility] MCV 94 78 - 100 11/05/2018 [facility] fl 5:22 PM [facility] MCH 31.5 26.5 - 11/05/2018 [facility] 33.0 pg 5:22 PM [facility] MCHC 33.5 31.5 - 11/05/2018 [facility] 36.5 g/dL 5:22 PM [facility] RDW 13.1 10.0 - 11/05/2018 [facility] 15.0 % 5:22 PM [facility] Platelet Count 108 (L) 150 - 450 11/05/2018 [facility] 10e9/L 5:22 PM [facility] Specimen Anatomical Collection Method Collection Time Receive d Time (Source) Location / / Volume Laterality Blood specimen 11/05/2018 4:35 PM 019 5:17 (specimen) [facility] PM [facility] Bessy Mccray MD LAB - BLOOD ORDERABLES Performing Organization Address City/State/ZIP Code Phon e Number M [facility] [address] [place] [address] [phone] [facility] [address] [place] [address], [place] [phone] INR (11/05/2018 4:35 PM [facility]) P athologist Signature INR 1.03 0.86 - 1.14 11/05/2018 [place] 5:33 PM [facility] Specimen Anatomical Collection Method Collection Time Receive d Time (Source) Location / / Volume Laterality Blood specimen 11/05/2018 4:35 PM 019 5:17 (specimen) [facility] PM [facility] Bessy Mccray MD LAB - BLOOD ORDERABLES Performing Organization Address City/State/ZIP Code Phon e Number M [facility] [address] [place] [address] [phone] [facility] [address] [place] [address], [place] [phone] Lactic acid whole blood (11/05/2018 4:35 PM [facility]) P athologist Signature Lactic Acid 1.0 0.7 - 2.0 11/05/2018 [place] mmol/L 5:57 PM [facility] Specimen Anatomical Collection Method Collection Time Receive d Time (Source) Location / / Volume Laterality Blood specimen 11/05/2018 4:35 PM 019 5:18 (specimen) [facility] PM [facility] Bessy Mccray MD LAB - BLOOD ORDERABLES Performing Organization Address City/State/ZIP Code Phon e Number M [facility] [address] [place] [address] [phone] [facility] [address] [place] [address], [place] [phone] (ABNORMAL) Basic metabolic panel (11/05/2018 4:35 PM [facility]) Analysis Performed At Patho logist Time Signature Sodium 143 133 - 144 11/05/2018 [facility] mmol/L 5:38 PM [facility] Potassium 4.3 3.4 - 5.3 11/05/2018 [facility] mmol/L 5:38 PM [facility] Chloride 113 (H) 94 - 109 11/05/2018 [facility] mmol/L 5:38 PM [facility] Carbon Dioxide 22 20 - 32 11/05/2018 [facility] mmol/L 5:43 PM [facility] Anion Gap 8 3 - 14 11/05/2018 [facility] mmol/L 5:43 PM [facility] Glucose 121 (H) 70 - 99 11/05/2018 [facility] mg/dL 5:43 PM [facility] Urea Nitrogen 24 7 - 30 11/05/2018 [facility]:43 PM [facility] Creatinine 1.30 (H) 0.66 - 11/05/2018 [facility] 1.25 mg/dL 5:43 PM [facility] GFR Estimate 53 (L) >60 11/05/2018 [place] mL/min/{1. 5:43 PM [facility] 73_m2} [facility] Comment: Non GFR Calc Starting 10/05/2018, serum creatinine ba sed estimated GFR (eGFR) will be calculated using the Chronic Kidney Dise [facility] Epidemiology Collaboration (CKD-EPI) equation. GFR Estimate If 61 >60 mL/min/{1.73_m2} 11/05/2018 5: 43 PM [facility] Comment: GFR Calc Starting 10/05/2018, serum creatinine ba sed estimated GFR (eGFR) will be calculated using the Chronic Kidney Dise [facility] Epidemiology Collaboration (CKD-EPI) equation. Calcium 8.6 8.5 - 10.1 mg/dL 11/05/2018 5:43 PM [facility] Specimen Anatomical Collection Method Collection Time Receive d Time (Source) Location / / Volume Laterality Blood specimen 11/05/2018 4:35 PM 019 5:17 (specimen) [facility] PM [facility] Bessy Mccray MD LAB - BLOOD ORDERABLES Performing Organization Address City/State/ZIP Code Phon e Number M [facility] [address] [place] [address] [facility] [address] [place] [address], U [phone] IR Thoracic Endovascular Stent Graft (11/05/2018 12:09 PM [facility]) Anatomical Region Laterality Modality Chest Radio Fluoroscopy Specimen (Source) Anatomical Location Collection Method / Collectio n Time Received Time / Laterality Volume Impressions 11/06/2018 3:33 PM [facility] IMPRESSION: Successful deployment in 2 components for [...] KANNAN MORSE MD Narrative 11/06/2018 3:33 PM [facility] INTERVENTIONAL RADIOLOGY THORACIC ENDOVASCULAR STENT GRAFT ??11/05/2018 [...] Plan is for endovascular repair with Med [employer] Valiant Navion stent graft system. TECHNIQUE: Please [...] tion. Over a series of maneuvers, 6 Ghanaian vascular sheath was placed. From left groin access, angiogram was performed to confi rm iliac anatomy and passage of wires. Through each access, JULIANE 1 was used to navigate through the thoracic aorta, which was tortuous, gabrielaou gh eventually able to advance to the [...] tion. Over a series of maneuvers, 6 Ghanaian vascular sheath was placed. From left groin access, angiogram was performed to confi rm iliac anatomy and passage of wires. Through each access, JULIANE 1 was used to navigate through the thoracic aorta, which was tortuous, gabrielaou gh eventually able to advance to the [...] Drain Placement w Fluoro (11/05/2018 9:10 AM [facility]) Anatomical Region Laterality Modality Spine Radio Fluoroscopy Specimen (Source) Anatomical Location Collection Method / Collectio n Time Received Time / Laterality Volume Narrative 11/05/2018 9:19 AM [facility] INTERVENTIONAL NEURORADIOLOGY PROCEDURAL NOTE FLUOROSCOPICALLY GUIDED [...] codes included for physician referen ce only: [id number] MISSAEL GARCIA MD Procedure Note Missael Garcia MD - 11/05/2018For matting of this note might be different from the original. [facility] RAD[facility]Y INTERVENTIONAL NEURORADIOLOGY PROCEDURAL NOTE FLUOROSCOPICALLY GUIDED [...] codes included for physician referen ce only: [id number] MISSAEL GARCIA MD Butch Brown MD IMG IR ORDERABLES EKG 12-lead, tracing only (11/05/2018 6:58 AM [facility]) [facility] gist Method Time Signature Interpretation ECG Click View RADIOLOGY Image link RESULTS to view waveform and result Specimen (Source) Anatomical Collection Method Collection Time Re ceived Time Location / / Volume Laterality 11/05/2018 6:58 AM [facility] Juan Lewis MD ECG ORDERABLES Performing Organization Address City/State/ZIP Code Phon e Number RADIOLOGY RESULTS Potassium (11/05/2018 6:55 AM [facility]) P athologist Signature Potassium 4.3 3.4 - 5.3 11/05/2018 [place] mmol/L 7:15 AM [facility] Specimen Anatomical Collection Method Collection Time Receive d Time (Source) Location / / Volume Laterality Blood specimen 11/05/2018 6:55 AM 019 6:56 (specimen) [facility] AM [facility] Zakia Tobin MD LAB - BLOOD ORDERABLES Performing Organization Address City/State/ZIP Code Phon e Number M [facility] [address] [place] [address] [phone] [facility] [address] [place] [address], [place] [phone] Lipid panel (11/05/2018 6:55 AM [facility]) Analysis Performed At Patho logist Time Signature Cholesterol 128 <200 mg/dL 11/05/2018 [facility] 7:20 AM [facility] Triglycerides 125 <150 mg/dL 11/05/2018 [facility] 7:21 AM [facility] HDL Cholesterol 59 >39 mg/dL 11/05/2018 [facility] 7:23 AM [facility] LDL Cholesterol 44 <100 mg/dL 11/05/2018 [facility] Calculated 7:23 AM [facility] Comment: Desirable: <100 mg/dl Non HDL Cholesterol 69 <130 mg/dL 11/05/2018 7:23 AM [facility] Specimen Anatomical Collection Method Collection Time Receive d Time (Source) Location / / Volume Laterality Blood specimen 11/05/2018 6:55 AM 019 6:56 (specimen) [facility] AM [facility] Juan Lewis MD LAB - BLOOD ORDERABLES Performing Organization Address City/State/ZIP Code Phon e Number M [facility] [address] [place] [address] [facility] [address] [place] [address], [place] [phone] Hemoglobin A1c (11/05/2018 6:55 AM [facility]) athologist Signature Hemoglobin A1C 5.2 0 - 5.6 % 11/05/2018 [place] 7:30 AM [facility] Comment: Normal <5.7% Prediabetes 5.7-6.4% ??Diab etes 6.5% or higher - adopted from ADA consensus guidelines. Specimen Anatomical Collection Method Collection Time Receive d Time (Source) Location / / Volume Laterality Blood specimen 11/05/2018 6:55 AM 019 6:56 (specimen) [facility] AM [facility] Juan Lewis MD LAB - BLOOD ORDERABLES Performing Organization Address City/State/ZIP Code Phon e Number M [facility] [address] [address] [phone] [facility] [address] [place] [address], U [phone] (ABNORMAL) Creatinine (11/05/2018 6:55 AM [facility]) athologist Signature Creatinine 1.52 (H) 0.66 - 11/05/2018 [place] 1.25 mg/dL 7:20 AM [facility] GFR Estimate 44 (L) >60 11/05/2018 [place] mL/min/{1. 7:20 AM [facility] 73_m2} [facility] Comment: Non GFR Calc Starting 10/05/2018, serum creatinine ba sed estimated GFR (eGFR) will be calculated using the Chronic Kidney Dise [facility] Epidemiology Collaboration (CKD-EPI) equation. GFR Estimate If 51 (L) >60 mL/min/{1.73_m2} 11/05/2018 7: 20 AM [place] Black [facility] Comment: GFR Calc Starting 10/05/2018, serum creatinine ba sed estimated GFR (eGFR) will be calculated using the Chronic Kidney Dise [facility] Epidemiology Collaboration (CKD-EPI) equation. Specimen Anatomical Collection Method Collection Time Receive d Time (Source) Location / / Volume Laterality Blood specimen 11/05/2018 6:55 AM 019 6:56 (specimen) [facility] AM [facility] Juan Lewis MD LAB - BLOOD ORDERABLES Performing Organization Address City/State/ZIP Code Phon e Number M [facility] [address] [address] [phone] [facility] [address] [address], [facility] [phone] XR Chest Port 1 View (11/05/2018 6:40 AM [facility]) Anatomical Region Laterality Modality Chest Digital Radiography Specimen (Source) Anatomical Location Collection Method / Collectio n Time Received Time / Laterality Volume Impressions 11/05/2018 6:58 AM [facility] IMPRESSION: No acute abnormality. TORI SANTIZO MD Narrative 11/05/2018 6:58 AM [facility] XR CHEST PORTABLE 1 VIEW ?? 11/05/2018 [...] CARDIAC - HIM SCAN (09/24/2018 12:00 AM [facility]) Specimen (Source) Anatomical Location Collection Method / Collectio n Time Received Time / Laterality Volume 09/24/2018 Narrative This result has an attachment that is no t available. 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 (H) - Primary Thoracic aneurysm without mention of rup ture Descending thoracic aortic aneurysm (H) Thoracic aneurysm without mention of rup ture Thoracic aortic aneurysm (H) Thoracic aneurysm without mention of rup ture documented in this encounter Admitting Diagnoses Diagnosis Thoracic aortic aneurysm (H) Thoracic aneurysm without mention of rup ture documented in this encounter Administered Medications Inactive Administered Medications - up to 3 most recent administrations Medication Order MAR Action Action Date Dose Rate Site acetaminophen (TYLENOL) 325 MG tablet Starting on Thu11/05/18 at 1828, For 1 d [employer] thomas Doreen : cabinet override Maximum acetaminophen dose from all sources = 75 mg/kg /day not to exceed 4 grams/day. acetaminophen (TYLENOL) tablet 975 mg Given 11/08/2018 11:04 PM [facility] 975 mg 975 mg, Oral, EVERY 6 HOURS PRN, mild pain, fever, Starting on Thu11/05/18 at 1827, Maximum acetaminophen dose from all sources = 75 mg/kg/day not to exceed 4 grams/day. Given 11/08/2018 12:37 PM [facility] 975 mg Given 11/07/2018 11:03 AM [facility] 975 mg alum & mag hydroxide-simethicone (MYLANTA Given 11/08/2018 2:48 AM [facility] 30 mLs ES/MAALOX ES) suspension 30 mL 30 mL, Oral, EVERY 4 HOURS PRN, indigestion, Starting on Thu11/05/18 at 1510, Shake well. apixaban ANTICOAGULANT (ELIQUIS) tablet 2.5 Given 10/20 12:04 PM [facility] 2.5 mg mg 2.5 mg, Oral, 2 TIMES DAILY, First dose on Thu11/09/18 at 1115 atorvastatin (LIPITOR) tablet 40 mg Given 11/08/2018 8:20 PM [facility] 40 mg 40 mg, Oral, EVERY EVENING, First dose on Thu11/05/18 at 2000 Given 11/07/2018 7:49 PM [facility] 40 mg Given 11/06/2018 9:16 PM [facility] 40 mg calcium carbonate (TUMS) chewable tablet Given 11/07/2018 10 :34 PM [facility] 1,000 mg 1,000 mg 1,000 mg, Oral, EVERY 2 HOURS PRN, heartburn, Starting on Thu11/06/18 at 0408, Do not give if calcium level greater than 10 mg/dL. Given 11/07/2018 12:05 AM [facility] 1,000 mg Given 11/06/2018 4:50 AM [facility] 1,000 mg clindamycin (CLEOCIN) infusion 900 New Bag 11/06/2018 2:05 AM [facility] 900 mg 50 mL/hr mg Routine, 900 mg, Intravenous, EVERY 8 HOURS, First dose on Thu11/05/18 at 1800, For 2 doses, Indications: Perioperative Pharmacoprophylaxis, Post-procedure New Bag 11/05/2018 6:08 PM [facility] 900 mg 50 mL/hr cyclobenzaprine (FLEXERIL) tablet 5-10 m g Given 11/08/2018 3:58 AM [facility] 10 mg 5-10 mg, Oral, 3 TIMES DAILY PRN, muscle spasms, Starting on Thu11/07/18 at 1153 Given 11/07/2018 2:26 PM [facility] 5 mg dextrose 5% and 0.45% NaCl infusion New Bag 11/08/2018 6:44 PM [facility] 75 mL/hr at 75 mL/hr, Intravenous, CONTINUOUS, Starting on Thu11/07/18 at 1200, Until Thu11/09/18 at 0731 Restarted 11/08/2018 4:21 PM [facility] 75 mL/hr New Bag 11/08/2018 7:35 AM [facility] 100 mL/hr diphenhydrAMINE (BENADRYL) injection 12. 5 mg 12.5 mg, Intravenous, EVERY 6 HOURS PRN, itching, Only give if patient unable to take PO., Starting on Thu11/05/18 at 151 0, Caution to be used when administering multiple SENIOR PROJECT ARCHITECT depressing meds within a sh ort time frame. For ordered IV doses 1-50 mg, give IV Push undiluted. Give each 25 mg over a minimum of 1 minute. Extend in non-emergency diphenhydrAMINE (BENADRYL) solution 12.5 mg 12.5 mg, Oral, EVERY 6 HOURS PRN, itchin g, Starting on Thu11/05/18 at 1510, Caution to be used when administering multiple SENIOR PROJECT ARCHITECT depressing meds within a short time frame. fentaNYL (PF) (SUBLIMAZE) 100 MCG/2ML in jection Starting on Thu11/05/18 at 0841, For 1 d ose, Gwen Rivas : cabinet override For ordered IV doses 1-100 mcg give IV Push undiluted over a minimum of 3-5 minutes. fentaNYL (PF) (SUBLIMAZE) injection 100 mcg Given 11/05/2018 7:45 AM [facility] 50 mcg 100 mcg, Intravenous, ONCE, Administer over 3-5 Minutes, On Thu11/05/18 at 0745, For 1 dose, For ordered IV doses 1-100 mcg give IV Push undiluted over a minimum of 3-5 minutes., Pre-procedure Given 11/05/2018 7:31 AM [facility] 50 mcg fentaNYL (PF) (SUBLIMAZE) injection 25-5 0 mcg Given 11/05/2018 8:48 AM [facility] 50 mcg 25-50 mcg, Intravenous, EVERY 5 MIN PRN, severe pain, If inadequate response may repeat 25 mcg IV slowly every 5 min PRN severe pain; when verbally requested by provider., Administer over 2 Minutes, Starting on Thu11/05/18 at 0848, Doses can be exceeded under direct oversight of patient by physician. For ordered IV doses 1-100 mcg give IV Push undiluted over a minimum of 3-5 minutes., IR Intra-procedure fentaNYL (PF) (SUBLIMAZE) injection 50 m cg Given 11/05/2018 1:33 PM [facility] 50 mcg 50 mcg, Intravenous, EVERY 5 MIN PRN, moderate to severe pain, Administer over 3-5 Minutes, Starting on Thu11/05/18 at 1333, For ordered IV doses 1-100 mcg give IV Push undiluted over a minimum of 3-5 minutes., PACU hydrALAZINE (APRESOLINE) injection 10-20 mg Given 11/08/2018 7:03 PM [facility] 10 mg 10-20 mg, Intravenous, EVERY 1 [...] over 1 minute. Given 11/08/2018 11:51 AM [facility] 20 mg Given 11/08/2018 3:36 AM [facility] 20 mg labetalol (NORMODYNE/TRANDATE) 5 MG/ML i njection Starting on Thu11/05/18 at 1521, For 1 d [employer] thomas Doreen : cabinet override For ordered doses up to 80 mg, give IV Push undiluted. Give each 20 mg over 2 minutes. labetalol (NORMODYNE/TRANDATE) injection 10 mg Given 11/05/2018 3:43 PM [facility] 10 mg 10 mg, Intravenous, EVERY 10 MIN PRN, high blood pressure, Administer over 1-2 Minutes, Starting on Thu11/05/18 at 1510, To achieve blood pressure of systolic < 160 mmHg Note for nurse: if both labetalol (NORMODYNE,TRANDATE) and hydrALAZINE (APRESOLINE) are ordered for hypertension, use labetalol (NORMODYNE,TRANDATE) as step one if heart rate greater than 60 bpm. For ordered doses up to 80 mg, give IV Push undiluted. Give each 20 mg over 2 minutes., Post-procedure Given 11/05/2018 3:25 PM [facility] 10 mg labetalol (NORMODYNE/TRANDATE) injection 10 mg Given 11/05/2018 1:45 PM [facility] 10 mg 10 mg, Intravenous, ONCE, Administer over 2-8 Minutes, On Thu11/05/18 at 1400, For 1 dose, For ordered doses up to 80 mg, give IV Push undiluted. Give each 20 mg over 2 minutes., PACU labetalol (NORMODYNE/TRANDATE) injection 10-20 Given 0 11/08/2018 3:03 AM [facility] 10 mg mg 10-20 mg, Intravenous, EVERY [...] over 2 minutes. Given 11/08/2018 2:33 AM [facility] 20 mg Given 11/07/2018 10:35 PM [facility] 10 mg labetalol (NORMODYNE/TRANDATE) injection 20 Given 11/05/2018 12:37 PM [facility] 10 mg mg 20 mg, Intravenous, ONCE, Administer over 2-8 Minutes, On Thu11/05/18 at 1315, For 1 dose, For ordered doses up to 80 mg, give IV Push undiluted. Give each 20 mg over 2 minutes., Pre-procedure labetalol (NORMODYNE/TRANDATE) injection 5 mg Given 11/05/2018 1:13 PM [facility] 5 mg 5 mg, Intravenous, ONCE, Administer over 2-8 Minutes, On Thu11/05/18 at 1315, For 1 dose, For ordered doses up to 80 mg, give IV Push undiluted. Give each 20 mg over 2 minutes., PACU lactated ringers infusion New Bag 11/05/2018 6:52 AM [facility] 25 mL/hr at 25 mL/hr, Intravenous, CONTINUOUS, IF patient NOT on dialysis., Pre-procedure, Starting on Thu11/05/18 at 0645, Until Thu11/05/18 at 0836 lidocaine 1 % 1 mL Given 11/05/2018 6:53 AM [facility] 0.3 mLs 1 mL, Other, EVERY 1 HOUR PRN, mild pain with VAD insertion or accessing implanted port, Starting on Thu11/05/18 at 0630, Do NOT give if patient has a history of allergy to any local anesthetic or any louei product. MAX dose 1 mL subcutaneous OR intradermal in divided doses., Pre-procedure magnesium sulfate 4 g in 100 mL sterile water (premade) 4 g, Intravenous, Administer over 120 Minutes, EVERY 4 HOURS PRN, magnesium supplementation, Starting on Thu11/07/18 at 1152, For serum Mg++ less than 1.6 mg/dL Give 4 g and recheck magnesium level 2 hours aft er dose, and next AM. metoprolol tartrate (LOPRESSOR) tablet 2 5 mg Given 11/08/2018 8:22 AM [facility] 25 mg 25 mg, Oral, 2 TIMES DAILY, First dose (after last modification) on Thu11/05/18 at 1615 Given 11/07/2018 7:49 PM [facility] 25 mg Given 11/07/2018 11:14 AM [facility] 25 mg metoprolol tartrate (LOPRESSOR) tablet 5 0 mg Given 11/09/2018 8:28 AM [facility] 50 mg 50 mg, Oral, 2 TIMES DAILY, First dose on Thu11/08/18 at 2100, Hold for SBP < 90, HR < 50 Given 11/08/2018 8:20 PM [facility] 50 mg midazolam (VERSED) 1 MG/ML injection Starting on Thu11/05/18 at 0841, For 1 d Rob thomas Callie : cabinet override For ordered IV doses 0.1-2.5 mg give IV Push slowly titrat ed over a minimum of 2 minutes. Dilute each 1mg in 4mL of NS. midazolam (VERSED) injection 0.5-1 mg Given 11/05/2018 8:48 AM [facility] 1 mg 0.5-1 mg, Intravenous, Administer over 1 Minutes, EVERY 4 MIN PRN, sedation, If inadequate response may repeat 0.5 mg IV slowly every 4 minutes PRN sedation until desired response; when verbally requested by provider., Starting on Thu11/05/18 at 0848, Doses can be exceeded under direct oversight of patient by physician. For ordered IV doses 0.1-2.5 mg give IV Push slowly titrated over a minimum of 2 minutes. Dilute each 1mg in 4mL of NS., IR Intra-procedure midazolam (VERSED) injection 4 mg Given 11/05/2018 7:53 AM [facility] 1 mg 4 mg, Intravenous, Administer over 2 Minutes, EVERY 4 MIN PRN, anxiety, Starting on Thu11/05/18 at 0732, For ordered IV doses 0.1-2.5 mg give IV Push slowly titrated over a minimum of 2 minutes. Dilute each 1mg in 4mL of NS., Pre-procedure Given 11/05/2018 7:49 AM [facility] 1 mg Given 11/05/2018 7:38 AM [facility] 1 mg omeprazole (priLOSEC) CR capsule 20 mg Given 11/09/2018 6:33 AM [facility] 20 mg 20 mg, Oral, EVERY MORNING BEFORE BREAKFAST, First dose on 11/07/18 at 2345 Given 11/08/2018 8:22 AM [facility] 20 mg Given 11/07/2018 11:48 PM [facility] 20 mg ondansetron (ZOFRAN) injection 4 mg Given 11/07/2018 11:48 PM [facility] 4 mg 4 mg, Intravenous, EVERY 6 [...] half-tab 2.5-5 mg Given 11/08/2018 12:37 PM [facility] 5 mg 2.5-5 mg, Oral, EVERY 4 HOURS PRN, moderate to severe pain, Starting on Thu11/05/18 at 1724 Given 11/08/2018 6:19 AM [facility] 5 mg Given 11/07/2018 7:49 PM [facility] 5 mg phenylephrine Rate/Dose Change 11/06/2018 6:45 0.3 mcg/kg/min 7.6 mL/ hr (OSIEL-SYNEPHRINE) 50 mg PM [facility] in sodium chloride 0.9 % 250 mL infusion 0.5-6 mcg/kg/min ? 84.3 kg (12.645-151.74 mL/hr, rounded to 12.6-151.7 mL/hr), Intravenous, CONTINUOUS, Starting on Thu11/05/18 at 2030, For range orders: start at lowest dose ordered. Titrate by 0.5 to 1 mcg/kg/min every 5 minutes to keep MAP greater than 65mmHg. Notify prescriber if higher doses are required to achieve blood pressure goals. Vesicant. Rate/Dose Change 11/06/2018 6:15 PM [facility] 0.5 mcg/kg/min 12.6 mL/hr Rate/Dose Change 11/06/2018 5:34 PM [facility] 0.7 mcg/kg/min 17.7 mL/hr sennosides (SENOKOT) tablet 8.6 mg Given 11/08/2018 3:36 AM [facility] 8.6 mg 8.6 mg, Oral, 2 TIMES DAILY PRN, constipation, Starting on Thu11/08/18 at 0250 sodium chloride (PF) 0.9% PF flush 3 mL Given 11/07/2018 4:12 PM [facility] 3 mLs 3 mL, Intracatheter, EVERY 8 HOURS, First dose on Thu11/05/18 at 1515, And Q1H PRN, to lock peripheral IV dormant line. Given 11/07/2018 11:34 AM [facility] 3 mLs Given 11/07/2018 12:06 AM [facility] 10 mLs sodium chloride 0.9% infusion New Bag 11/06/2018 7:48 PM [facility] 100 mL/hr at 100 mL/hr, Intravenous, CONTINUOUS, For patient on renal dialysis. Saline lock after 1 liter if taking PO fluids., Post-procedure, Starting on Thu11/05/18 at 1515, Until Thu11/08/18 at 1245 New Bag 11/06/2018 12:08 PM [facility] 100 mL/hr New Bag 11/06/2018 2:33 AM [facility] 100 mL/hr terazosin (HYTRIN) capsule 5 mg Given 11/08/2018 9:21 PM [facility] 5 mg 5 mg, Oral, AT BEDTIME, First dose on Thu11/05/18 at 2200 documented in this encounter Active and Recently Administered Medications Times are shown in [facility]. Scheduled Medication Order 11/07/2018 11/08/2018 11/09/2018 apixaban ANTICOAGULANT (ELIQUIS) tablet 2.5 mg 1204 (Given - Provider: Kiki Traylor RN) 2.5 mg, Oral, 2 TIMES DAILY, First dose on Thu11/09/18 at 1115 atorvastatin (LIPITOR) tablet 40 mg 1949 (Given - Provider: Kristy Castañeda RN) 2019 (Given - Provider: Maria C Dunbar RN) 40 mg, Oral, EVERY EVENING, First dose [...] (Given - Provider: Maria C Dunbar RN) 0828 (Given - Provider: Kiki dey RN) 50 [...] EVERY MORNING BEFORE BREAKFAST, First dose on 11/07/18 at 2345 sodium bicarbonate tablet 650 mg 2221 (Not Given - Pro vider: Kristy Castañeda RN - Reason: Patient/family refused - Comment: it gives me terrible gas pains) 2123 (Not Given - Provider: Maria C Dunbar [...] ider: Kristy Castañeda RN - Reason: NPO) 2120 (Given - Provider: Maria C Dunbar RN) 5 mg, Oral, AT BEDTIME, First dose on Thu11/05/18 at 2200 Continuous Medication Order 11/07/2018 11/08/2018 11/09/2018 dextrose 5% and 0.45% NaCl infusion (CANCELED) 1426 (N ew Bag - Provider: Danette Peck RN)1535 (Rate/Dose Verify - Provider: Aura Crooks RN)2330 (New Bag - Provider: Kristy Castañeda RN) 0735 (New Bag - Provider: Aura Crooks , JOSE)1400 (Stopped - Provider: Aura Crooks RN)1621 (Restarted - Provider: Aura Crooks RN)1844 (New Bag - Provider: Misty Villalobos RN) [...] Crooks RN)2304 (Given - Provider: Maria C Dunbar RN) 975 mg, Oral, EVERY 6 HOURS PRN, mild pa in, fever, Starting 11/05/18 at 1827, Maximum acetaminophen dose from all sources = 75 mg/kg/day not to exceed 4 grams/day. alum & mag hydroxide-simethicone (MYLANTA ES/MAALOX ES) susp ension 30 mL 0248 (Given - Provider: Kristy Castañeda, RN) 30 mL, Oral, EVERY 4 HOURS PRN, indigest ion, Starting 11/05/18 at 1510, Shake well. calcium carbonate (TUMS) chewable tablet 1,000 mg 0005 (Given - Provider: Ramiro Lozano RN)2234 (Given - Provider: Kristy Castañeda RN) 1,000 mg, Oral, EVERY 2 HOURS PRN, [...] unable to take PO., Starting 11/05/18 at 1510, Caution to be used when administering multiple SENIOR PROJECT ARCHITECT depressing meds within a short time frame. For ordered IV doses 1-50 m g, give IV Push undiluted. Give each 25mg over a minimum of 1 minute. Extend in non-emergency diphenhydrAMINE (BENADRYL) solution 12.5 mg(Linked Group 1) 12.5 mg, Oral, EVERY 6 HOURS PRN, itchin g, Starting 11/05/18 at 1510, Caution to be used when administering multiple SENIOR PROJECT ARCHITECT depressing meds within a short time frame. hydrALAZINE (APRESOLINE) injection 10-20 mg 0155 (Give n - Provider: Ramiro Lozano RN)0343 (Given - Provider: Ramiro Lozano RN)1053 (Given - Provider: Danette Peck RN) 0336 (Given - Provider: Kristy Castañeda, JOSE )1151 (Given - Provider: Aura rCooks RN)1903 (Given - Provider: Misty Villalobos RN) 10-20 mg, Intravenous, EVERY 1 HOUR PRN, [...] Danette Peck RN)0939 (Given - Provider: Danette Peck RN)1014 (Given - Provider: Danette Peck, JOSE) 0233 (Given - Provider: Kristy Castañeda, JOSE)0303 (Given - Provider: Kristy Castañeda RN) 10-20 mg, Intravenous, EVERY 10 MIN PRN, high blood pressure, Administer over 1- 2 Minutes, Starting Thu11/05/18 at 1621, To achieve blood pressure of systolic < 160 mmHg Note for nurse: if both labet 2044 (Given - Provider: Kristy Castañeda RN)2235 (Given - Provider: Kristy Castañeda, JOSE) alol (NORMODYNE,TRANDATE) and hydrALAZIN E (APRESOLINE) are [...] VAD insertion or accessing implanted port, Starting 11/05/18 at 1510, Do NOT give if patient has a history of allergy to any local anesthetic or any kathy ne product. MAX dose 1 mL subcutaneous OR intradermal in divide d doses. magnesium sulfate 4 g in 100 mL sterile water (premade) 4 g, Intravenous, Administer over 120 Mi nutes, EVERY 4 HOURS PRN, Starting 11/07/18 at 1152, magnesium supplementation, For serum Mg++ [...] 2) 2348 (See Alternative - Provider: Kristy Castañeda, JOSE) 4 mg, Oral, EVERY 6 HOURS PRN, [...] Crooks, JOSE)1949 (Given - Provider: Kristy Castañeda, RN) 0619 (Given - Provider: Kristy Castañeda, JOSE)1237 (Given - Provider: Aura Crooks, JOSE) 2.5-5 mg, Oral, EVERY 4 HOURS PRN, moder ate to severe pain, Starting Thu11/05/18 at 1724 sennosides (SENOKOT) tablet 8.6 mg 0336 (Given - Provider: Kristy Castañeda, JOSE) 8.6 mg, Oral, 2 TIMES DAILY PRN, constipation, Starting 11/08 at 0250 sodium chloride (PF) 0.9% [...]
Caution to be used when administering multiple SENIOR PROJECT ARCHITECT depressing meds within a short time frame.
Or diphenhydrAMINE (BENADRYL) injection 12.5 mgJump to med 12.5 mg, Intravenous, EVERY 6 HOURS PRN, itching, Only give if patient unable to take PO., Starting Thu11/05/18 at 1510
Caution to be used when administering multiple SENIOR PROJECT ARCHITECT depressing meds within a short time frame. For ordered IV doses 1-50 mg, give IV Push undiluted. Give each 25mg over a minimum of 1 minute. Extend in non-emergency
Group 2: ondansetron (ZOFRAN-ODT) ODT tab 4 mgJump to med 4 mg, Oral, EVERY 6 HOURS PRN, nausea, v omiting, Starting 11/05/18 at 1510
This is Step 1 of [...] documented as of this encounter Care Teams Retail Support Specialist Relationship Specialty Start Date End Date [facility] - General 05/[facility] [address] [place] [address] documented as of this encounter
--- OUTSIDE RECORDS SUMMARY | 2022-05-28 05:04 | XMS_ITS | Encounter Summary ---
:1940 Author Organization [facility] Address [address] [facility] [place] [address] Care Team Providers Name Role Phone Clinic, [facility] Primary Care Provider Reason for Visit Auth/Cert Specialty Diagnoses / Procedures Referred By Contact Refer red To Contact Surgery Diagnoses DESCENDING THORACIC AORTIC ANEURYSM Sh Periop Services Procedures ENDOVASCULAR REPAIR ANEURYSM THORACIC AORTIC [address], [address] [place] [address] Phone: Referral ID Status Reason Start Date Expiration Date Visits Requ ested Visits Authorized [id number] 1 1 Encounter Details Date Type Department Care Team Description 11/03/2018 Hospital Encounter [facility] Juan Lewis En counter for [facility] MD Elijah pre-operative [address] [address] [address] [place] [address] Social History Tobacco Use Types Packs/Day Years [...] low back pain without sciatica acetaminophen (TYLENOL) Take 500 mg by 0 500 MG tablet mouth 3 times daily as needed for mild pain apixaban ANTICOAGULANT Take 1 tablet (2.5 60 tablet 1 11/15 (ELIQUIS) 2.5 MG mg) by mouth 2 tabletIndications: times daily Transient cerebral ischemia, unspecified type lisinopril Take 5 mg by mouth 0 (PRINIVIL/ZESTRIL) 10 MG 2 times daily (0.5 tablet x 10 mg = 5 mg dose) metoprolol tartrate Take 50 mg by mouth 0 (LOPRESSOR) 50 MG tablet 2 times daily oxyCODONE (ROXICODONE) 5 Take 1 tablet (5 20 tablet 0 11/09 MG tabletIndications: mg) by mouth every Thoracic aortic aneurysm 4 hours as needed without rupture (H) for moderate to severe pain sodium bicarbonate 650 MG Take 650 mg by 0 tablet mouth At Bedtime terazosin (HYTRIN) 5 MG Take 5 mg by mouth 0 capsule At Bedtime METOPROLOL TARTRATE PO Take 50 mg by mouth 0 11/05/2018 2 times daily. TERAZOSIN HCL PO Take 5 mg by mouth 0 11/05/2018 At Bedtime Acetaminophen (TYLENOL PO) Take 500 mg by 0 11/05/2018 mouth 3 times daily as needed furosemide (LASIX) 20 MG Take 20 mg by mouth 0 11/09/2018 tablet daily FUROSEMIDE PO Take 20 mg by mouth 0 daily lisinopril Take 0.5 tablets (5 30 tablet 0 11/15/201711/05 (PRINIVIL/ZESTRIL) 10 MG mg) by mouth daily tabletIndications: Uncontrolled hypertension SODIUM BICARBONATE PO Take 650 mg by 0 11/05/2018 mouth At Bedtime documented as of this encounter Plan of Treatment Not on filedocumented as of this encounter Procedures Procedure Name Priority Date/Time Associated Diagnosis Comme nts BLOOD COMPONENT Routine 11/03/2018 9:10 AM Encounter for Resul ts for this [employer] PROJECT MANAGER pre-operative procedure are in laboratory testing the resul ts section. BLOOD COMPONENT Routine 11/03/2018 9:10 AM Encounter for Resul ts for this [employer]ER[employer] PROJECT MANAGER pre-operative procedure are in laboratory testing the resul ts section. BLOOD COMPONENT Routine 11/03/2018 9:10 AM Encounter for Resul ts for this [employer]ER[employer] PROJECT MANAGER pre-operative procedure are in laboratory testing the resul ts section. BLOOD COMPONENT Routine 11/03/2018 9:10 AM Encounter for Resul ts for this [employer]COMMERCE PROJECT MANAGER pre-operative procedure are in laboratory testing the resul ts section. ABO/RH TYPE AND Routine 11/03/2018 9:10 AM Encounter for Resul ts for this SCREEN [employer]ER[employer] PROJECT MANAGER pre-operative procedure are in laboratory testing the resul ts section. documented in this encounter Results Blood component (11/03/2018 9:10 AM E[employer]ER[employer] PROJECT MANAGER) [facility] Method Time Signature Unit Number [id number] 11/05/2018 [facility] 7:55 AM [facility] Blood Red Blood Cells 11/05/2018 [facility] Component LeukoReduced 7:55 AM [facility] HOSPITAL Division 00 11/05/2018 [facility] Number 7:55 AM [facility] Status of No longer 11/07/2018 [facility] Unit available 3:00 AM [facility] 11/07/2018 0300 [facility] Blood Product [id number] 11/05/2018 [facility] Code 7:55 AM [facility] Unit Status [facility] Specimen Anatomical Collection Method Collection Time Receive d Time (Source) Location / / Volume Laterality 11/03/2018 9:10 AM 9 9:19 [employer] PROJECT MANAGER AM [employer] PROJECT MANAGER Juan Lewis MD LABORATORY Performing Organization Address City/State/ZIP Code Phon e Number [facility] [address], [place] [address] [facility] [address] [place] [address], [facility] [address], [place] [address], [facility] [phone] Blood component (11/03/2018 9:10 AM E[employer]ER[employer] PROJECT MANAGER) [facility] gist Method Time Signature Unit Number [id number] 11/05/2018 [facility] 7:55 AM [facility] Blood Red Blood 11/05/2018 [facility] Component Cells 7:55 AM [facility] Reduced Division 00 11/05/2018 [facility] Number 7:55 AM [facility] Status of No longer 11/07/2018 [facility] Unit available 3:00 AM [facility] 11/07/2018 HOSPITAL 0300 Blood Product [id number] 11/05/2018 [facility] Code 7:55 AM [facility] Unit Status [facility] Specimen Anatomical Collection Method Collection Time Receive d Time (Source) Location / / Volume Laterality 11/03/2018 9:10 AM 9 9:19 [employer]ER[employer] PROJECT MANAGER AM [employer] PROJECT MANAGER Juan Lewis MD LABORATORY Performing Organization Address City/State/ZIP Code Phon e Number [facility] [address] [address] [place] [id number] [place] [address], [facility] [address], [place] [address], [facility] [phone] Blood component (11/03/2018 9:10 AM ECOMMERCE PROJECT MANAGER) [facility] Method Time Signature Unit Number [id number] 11/03/2018 [facility] 10:39 AM [facility] Blood Red Blood 11/03/2018 [facility] Component Cells 10:39 AM [facility] Reduced Division 00 11/03/2018 [facility] Number 10:39 AM [facility] Status of No longer 11/07/2018 [facility] Unit available 3:00 AM [facility] 11/07/2018 HOSPITAL 0300 Blood Product [id number] 11/03/2018 [facility] Code 10:39 AM [facility] Unit Status [facility] Specimen Anatomical Collection Method Collection Time Receive d Time (Source) Location / / Volume Laterality 11/03/2018 9:10 AM 9 9:19 [employer]ERCE PROJECT MANAGER AM [employer]ER[employer] PROJECT MANAGER Juan Lewis MD LABORATORY Performing Organization Address City/State/ZIP Code Phon e Number [facility] [address] [address] [facility] [address] [place] [address], [facility] [address], [place] [address], [facility] [phone] Blood component (11/03/2018 9:10 AM ECOMMERCE PROJECT MANAGER) [facility] Method Time Signature Unit Number [id number] 11/03/2018 [facility] 10:39 AM [facility] Blood Red Blood 11/03/2018 [facility] Component Cells 10:39 AM [facility] Leukocyte HOSPITAL Reduced Division 00 11/03/2018 [facility] Number 10:39 AM [facility] Status of No longer 11/07/2018 [facility] Unit available 3:00 AM [facility] 11/07/2018 HOSPITAL 0300 Blood Product [id number] 11/03/2018 [facility] Code 10:39 AM [facility] Unit Status [facility] Specimen Anatomical Collection Method Collection Time Receive d Time (Source) Location / / Volume Laterality 11/03/2018 9:10 AM 9 9:19 ECOMMERCE PROJECT MANAGER AM E[employer]ERCE PROJECT MANAGER Juan Lewis MD LABORATORY Performing Organization Address City/State/ZIP Code Phon e Number [facility] [address], [place] [address] [facility] [address] [place] [address], [facility] [address], [place] [address], [facility] [phone] (ABNORMAL) ABO/Rh type and screen (11/03/2018 9:10 AM E[employer]ER[employer] PROJECT MANAGER) [facility] [employer] Method Time Signature Units Ordered 4 11/05/2018 [facility] 1:30 PM [facility] ABO O 11/03/2018 [facility] 10:15 AM [facility] RH(D) Pos [facility] Antibody Pos (A) 11/03/2018 [facility] Screen 10:15 AM [facility] Test Valid [facility] 11/03/2018 [place] Only At [facility] 9:31 AM [facility] Specimen 11/06/2018 11/03/2018 [place] Expires 9:31 AM [facility] Crossmatch Red Blood 11/03/2018 [place] Cells 9:31 AM [facility] Specimen Anatomical Collection Method Collection Time Receive d Time (Source) Location / / Volume Laterality Blood specimen 11/03/2018 9:10 AM 019 9:19 (specimen) [employer]ER[employer] PROJECT MANAGER AM [employer]ER[employer] PROJECT MANAGER Juan Lewis MD LAB - BLOOD BANK TEST ORDER Performing Organization Address City/State/ZIP Code Phon e Number [facility] [address] [place] [address] [facility] [address] [place] [address], [facility] [phone] documented in this encounter Visit Diagnoses Diagnosis Encounter for pre-operative laboratory t esting Preoperative examination, unspecified documented in this encounter Care Teams Plate Hanger Relationship Specialty Start Date End Date Clinic, [facility] PCP - General 05/12/[address] [place] [id number] documented as of this encounter
--- OUTSIDE RECORDS SUMMARY | 2022-05-28 05:04 | XMS_ITS | Encounter Summary ---
:1940 Author Organization [place] Address [facility] [place] [address] Care Team Providers Name Role Phone Clinic, [facility] Primary Care Provider [phone] Reason for Visit Auth/Cert Specialty Diagnoses / Procedures Referred By Contact Refer red To Contact Surgery Diagnoses ABDOMINAL AORTIC ANEURYSM Sh Periop Services Procedures ENDOVASCULAR REPAIR ANEURYSM ABDOMINAL AORTA [address] [place] [address] Phone: Referral ID Status Reason Start Date Expiration Date Visits Requ ested Visits Authorized [id number] 1 1 Encounter Details Date Type Department Care Team Description [facility] [address] [place] [id number] AAA (abdominal 09/29/2018 Encounter Carrie Abdi MD [address] [place] [id number] aortic aneurysm) Intermediate Care (H) [address] [place] [id number] Social History Tobacco Use [...] Sign Reading Time Taken Comments Blood Pressure 135/74 09/29/2018 11:18 AM MATH AND SCIENCE DIVISION CHAIR Pulse 48 09/29/2018 11:18 AM MATH AND SCIENCE DIVISION CHAIR Temperature 36.5 ??C (97.7 ??F) 09/29/2018 11:18 AM MATH AND SCIENCE DIVISION CHAIR Respiratory Rate 16 09/29/2018 11:18 AM MATH AND SCIENCE DIVISION CHAIR Oxygen Saturation 95% 09/29/2018 11:18 AM MATH AND SCIENCE DIVISION CHAIR Inhaled Oxygen Concentration - - Weight 85.2 kg (187 lb 12.8 oz) 09/29/2018 5:00 AM MATH AND SCIENCE DIVISION CHAIR Height 170.2 cm (5' 7) 09/28/2018 11:21 AM MATH AND SCIENCE DIVISION CHAIR Body Mass Index 29.41 09/28/2018 11:21 AM MATH AND SCIENCE DIVISION CHAIR documented in this encounter Discharge Summaries Juan Vásquez MD - 09/29/2018 3:53 PM CST Admit Date: 09/28/2018 Discharge Date: 09/29/2018 FINAL DIAGNOSES: Thoracic and abdominal aortic aneurysms. PROCEDURE: Attempted endovascular repair of abdominal aortic aneurysm. COMPLICATIONS: None. This is a 78-year-old male who was admitted to the hospital for endovascular repair of an abdominal aortic aneurysm. He was admitted on 09/28/2018 and discharged on 09/29/2018. He was taken to the endovascular suite on 09/28/2018; he underwent bilateral femoral cutdowns with angiography. On our initial angiogram, he was found to also have a descending thoracic aneurysm. This was actually larger than his abdominal aortic aneurysm. Therefore, we terminated the procedure at that point. The arteriotomies were closed as well as the wounds. I had a thorough discussion with the patient and his family withregard to his thoracic aneurysm. At this point, I think the best option would be to proceed with a CT angiogram of the chest to determine the size and extent of his thoracic aneurysm and then proceed with a staged procedure repairing the thoracic aneurysm first. They understood that this was the safest way to proceed, and were happy to take this course. The patient did undergo a CT angiogram on rior to discharge. This will be reviewed and a determination of endovascular repair of this will bemade. We will see the patient postoperatively to again discuss options of therapy. He had no complications during this hospitalization. He was discharged on 09/29/2018 and at the time of discharge, he had palpable pedal pulses. His groin incisions were healing nicely and he had no complaints. JUAN VÁSQUEZ III, MD MT: RIO Name: SPEEDY MCDUFFIE Account: [id number] : 1940 Admit Date: 09/28/2018 Discharge Date: 09/29/2018 Document: [id number] cc: Primary AND SCIENCE DIVISION CHAIR documented in this encounter Medications at Time of Discharge Medication Sig Dispensed Refills Start Date End Date atorvastatin (LIPITOR) 40 Take 1 tablet (40 30 tablet 0 MG tabletIndications: mg) by mouth daily Hyperlipidemia LDL goal <70, Acute left-sided low back pain without sciatica apixaban ANTICOAGULANT Take 1 tablet (2.5 60 tablet 1 11/15 (ELIQUIS) 2.5 MG mg) by mouth 2 tabletIndications: times daily Transient cerebral ischemia, unspecified type METOPROLOL TARTRATE PO Take 50 mg by mouth 0 11/05/2018 2 times daily. TERAZOSIN HCL PO Take 5 mg by mouth 0 11/05/2018 At Bedtime Acetaminophen (TYLENOL PO) Take 500 mg by 0 11/05/2018 mouth 3 times daily as needed FUROSEMIDE PO Take 20 mg by mouth 0 daily lisinopril Take 0.5 tablets (5 30 tablet 0 11/15/201711/05 (PRINIVIL/ZESTRIL) 10 MG mg) by mouth daily tabletIndications: Uncontrolled hypertension SODIUM BICARBONATE PO Take 650 mg by 0 11/05/2018 mouth At Bedtime documented as of this encounter Progress Notes Carrie Levi MD - 09/29/2018 9:32 AM CST [facility] Vascular Medicine Progress Note Date of Service (when I saw the patient): 09/29/2018 Attestation: I have examined the patient independently of Pam Coned PA-C and agree with the examination and plan as delineated below. Carrie Levi MD Assessment & Plan 1. A 46 mm nonruptured fusiform infrarenal AAA, anatomically amenable to endovascular aneurysm repair with angiography findings 09/28/18 significant for a large thoracic aortic aneurysm Assessment: ?? Endovascular repair aborted yesterday after the finding of a large thoracic aortic aneurysm during angiogram. Voiding Pain in groin controlled. Plan: CTA chest today This will ultimately need repair, but plan to be determined after CTA of chest. 2. Chronic atrial fibrillation. Assessment: Renal insufficiency (creatinine 1.46, GFR 47) - anticoagulated chronically with apixaban at a reduced dose of 2.5 mg p.o. b.i.d. His rate is controlled. CHADS2-VASc score is 4 denoting a 4.8% annual risk of stroke if not anticoagulated. Plan: Will hold Eliquis for now until surgical plan is known. 3. Hyperlipidemia with LDL goal of less than 70. ?? Assessment: LDL 52 - at goal. Plan: Continue Lipitor 40 mg daily. 4. CKD stage 3 Assessment: Creatinine yesterday 1.46 Plan: Recheck creatinine today after contrast yesterday. Advised to have creatinine rechecked by PCP a few days after discharge given repeated contrast exposure this admission. Interval History Doing well. Pain controlled. Voiding. Eating. Awaiting CTA chest. Physical Exam Temp: 97.7 ??F (36.5 ??C) Temp src: Oral BP: 147/74 Pulse: 76 Heart Rate: 67 Resp: 16 SpO2: 95 % O2 Device: None (Room air) Oxygen Delivery: 2 LPM Vitals: 09/28/18 1121 09/29/18 0500 Weight: 187 lb (84.8 kg) 187 lb 12.8 oz (85.2 kg) Vital Signs with Ranges Temp: [97.4 ??F (36.3 ??C)-97.9 ??F (36.6 ??C)] 97.7 ??F (36.5 ??C) Pulse: [46-76] 76 Heart Rate: [54-72] 67 Resp: [7-27] 16 BP: (130-162)/(72-100) 147/74 MAP: [98 mmHg-108 mmHg] 108 mmHg Arterial Line BP: (152-158)/(63-70) 158/70 SpO2: [94 %-100 %] 95 % I/O last 3 completed shifts: In: 2814 [P.O.:100; I.V.:2714] Out: 800 [Urine:800] Constitutional: Awake, alert, cooperative, no apparent distress, and appears stated age. Eyes: Lids and lashes normal, sclera clear, conjunctiva normal. ENT: Normocephalic, without obvious abnormality, atraumatic, oral pharynx with moist mucus membranes Respiratory: No increased work of breathing, good air exchange, clear to auscultation bilaterally, no crackles or wheezing. Cardiovascular: Regular rate and rhythm, normal S1 and S2, no S3 or S4, and no murmur noted. GI: Normal bowel sounds, soft, non-distended, non-tender Genitourinary: Levi out. Skin: No bruising or bleeding, normal skin color, texture, turgor, no redness, warmth, or swelling, no rashes. Surgical sites in groin c/d/i. Musculoskeletal: There is no redness, warmth, or swelling of the joints. Very mild bipedal edema. Neurologic: Awake, alert, oriented to name, place and time. Cranial nerves II- XII are grossly intact. Neuropsychiatric: Calm, normal eye contact, alert, normal affect, oriented to self, place, time and situation, memory for past and recent events intact and thought process normal. Pulses: Palpable DP pulses bilaterally. Medications ??? lactated ringers 125 mL/hr at 09/29/18 0248 ??? acetaminophen 975 mg Oral Q8H ??? atorvastatin 40 mg Oral QPM ??? lisinopril 5 mg Oral BID ??? metoprolol tartrate 50 mg Oral BID ??? sodium chloride (PF) 3 mL Intracatheter Q8H ??? terazosin 5 mg Oral At Bedtime Data Recent Labs Lab 09/28/18 1111 POTASSIUM 4.0 CR 1.46* Recent Results (from the past 24 hour(s)) XR Chest 1 View Narrative CHEST ONE VIEW 09/28/2018 11:21 AM HISTORY: Pre-op AAA surgery. COMPARISON: 05/07/2017 Impression IMPRESSION: Heart size similar to prior. The thoracic aorta is elongated. No airspace consolidation or pneumothorax. There appears to be a small right pleural effusion. ELAINA HUNTLEY MD IR Abdominal Endovascular Stent Graft Narrative PROCEDURE(S): 1. Thoracic and abdominal aortic angiography DATE OF PROCEDURE: 09/28/2018 2:17 PM OPERATORS: Interventional radiology staff: Jacqui Odom MD Vascular surgery staff: Aubrey Vásquez MD Vascular surgery fellow: Zoltan Crowlel MD MEDICATIONS: All medications were administered by the anesthesia team. CONTRAST: 20 mL Isovue IA REFERENCED AIR KERMA: 163 mGy FLUOROSCOPY TIME: 2 minutes. ESTIMATED BLOOD LOSS: Minimal COMPLICATIONS: None PRE-PROCEDURE DIAGNOSIS: Abdominal aortic aneurysm POST-PROCEDURE DIAGNOSIS: Thoracic and abdominal aortic aneurysms CLINICAL HISTORY/INDICATION: 78-year-old male with abdominal aortic aneurysm presents for elective endovascular abdominal aortic aneurysm repair. PROCEDURE AND FINDINGS: Following a discussion of the risks, benefits, indications, and alternatives to treatment, appropriate informed consent was obtained. The patient was brought to the hybrid OR suite and placed supine on the table. Satisfactory general endotracheal anesthesia was induced by anesthesia staff with appropriate monitoring. The patient was sterilely prepped and draped for endovascular aneurysm repair. A timeout was performed per hospital universal protocol policy to confirm the correct patient, site and procedure to be performed. Please note that due to the complex nature of the procedure, a multi-disciplinary approach was used which involved Mili Vásquez and Lei functioning as co-surgeons for this procedure. Bilateral common femoral arteries were surgically exposed, see separate operative report for details. An 18-gauge singlewall needle was then inserted into the right common femoral artery through which a 0.035 inch Bentson wire was advanced into the abdominal aorta. Exchange was made for a 6 [place] vascular sheath. 18-gauge singlewall needle was then advanced into the left common femoral artery through which a 0.035 inch Bentson wire was advanced in the abdominal aorta. Exchange is made for a 6 [place] vascular sheath. Via the left groin access, a 5 [place]ian pigtail catheter was advanced over the Bentson wire into the abdominal aorta. Via the right groin, a 5 [place] pigtail catheter was advanced over the Bentson wire. The Bentson wire was noted to be above the diaphragm but looped into the left hemithorax. The pigtail catheter was advanced into the descending thoracic aorta and aortogram was performed. This showed a large, previously unknown, thoracic aortic aneurysm. Additionally, the abdominal aortic aneurysm note from prior CT was also seen. The proximal extent of the thoracic aneurysm was unknown as there has not been prior thoracic imaging. The decision was made to abort the procedure and obtain further imaging of the chest for further operative planning. Bilateral groins were surgically closed, see separate operative report for details. Sterile bandages were placed. The patient was awakened from general endotracheal anesthesia and transferred to the recovery room in satisfactory condition. There were no immediate procedure-related complications. Impression Impression: 1. Thoracic and abdominal angiography demonstrating previously unknown thoracic aortic aneurysm as well as the known abdominal aortic aneurysm 2. Endovascular aneurysm repair was aborted to allow for further investigation of the thoracic aortic aneurysm and future surgical planning. JACQUI ODOM MD Lambert Chicas PA-C - 09/29/2018 9:08 AM CST HOSPITALIST CONSULT CHART CHECK: Hospitalist service was consulted for cross coverage only. We will peripherally follow and chart check throughout the week. - For vascular medical concerns during business hours M-F, call the [facility] at [phone] to have the rounding/pest control applicator Vascular Medicine (NOT VASCULAR SURGERY) MD paged. - After business hours M-F,??for medical concerns on this patient, please page hospitalist staff. - For vascular surgical questions, please page the appropriate surgeon (primary vascular surgeon or pest control applicator vascular surgeon) based upon the time of day. Lambert Fontanez PA-C Zoltan Londono MD - 09/29/2018 8:19 AM CST [facility] Vascular Surgery Progress Note Assessment & Plan Procedure(s): BILATERAL FEMORAL CUTDOWN WITH ANGIOGRAM -1 Day Post-Op 78 y/o male s/p bilateral femoral cut-down and thorac-abdominal aortogram. --Will obtain CTA chest this morning to assess the thoracic aneursym --Will continue with regular diet --Can be OOB and ambulate Active Problems: AAA (abdominal aortic aneurysm) (H) Zoltan Crowell MD Interval History No acute events overnight. Patient doing well this morning. No complaints Physical Exam Temp: 97.7 ??F (36.5 ??C) Temp src: Oral BP: 147/74 Pulse: (!) 46 Heart Rate: 67 Resp: 16 SpO2: 95 %O2 Device: None (Room air) Oxygen Delivery: 2 LPM Vitals: 09/28/18 1121 09/29/18 0500 Weight: 84.8 kg (187 lb) 85.2 kg (187 lb 12.8 oz) Vital Signs with Ranges Temp: [97.4 ??F (36.3 ??C)-97.9 ??F (36.6 ??C)] 97.7 ??F (36.5 ??C) Pulse: [46-62] 46 Heart Rate: [54-72] 67 Resp: [7-27] 16 BP: (130-162)/(72-100) 147/74 MAP: [98 mmHg-108 mmHg] 108 mmHg Arterial Line BP: (152-158)/(63-70) 158/70 SpO2: [94 %-100 %] 95 % I/O last 3 completed shifts: In: 2814 [P.O.:100; I.V.:2714] Out: 800 [Urine:800] PE: NAD, awake and alert Chest: S1 S2 present, RRR, no wheezing Abd: soft, NT, ND, no rebound or guarding Ex: Bilateral groin dressing c/d/i. Motor and sensory intact Medications ??? lactated ringers 125 mL/hr at 09/29/18 0248 ??? acetaminophen 975 mg Oral Q8H ??? apixaban ANTICOAGULANT 2.5 mg Oral BID ??? atorvastatin 40 mg Oral QPM ??? lisinopril 5 mg Oral BID ??? metoprolol tartrate 50 mg Oral BID ??? sodium chloride (PF) 3 mL Intracatheter Q8H ??? terazosin 5 mg Oral At Bedtime Brandie Covington PA-C - 09/28/2018 5:55 PM CST HOSPITALIST CONSULT CHART CHECK: Hospitalist service was consulted for cross coverage only. We will peripherally follow and chart check throughout the week. - For vascular medical concerns during business hours M-F, call the [facility] at [phone] to have the rounding/pest control applicator Vascular Medicine (NOT VASCULAR SURGERY) MD paged. - After business hours M-F,??for medical concerns on this patient, please page hospitalist staff. - For vascular surgical questions, please page the appropriate surgeon (primary vascular surgeon or pest control applicator vascular surgeon) based upon the time of day. Brandie Barrera PA-C Michelle Jones - 09/28/2018 10:42 AM CST Admission medication history interview status for the 09/28/2018 admission is complete. See [facility] admission navigator for prior to admission medications Medication history source reliability:Good Medication history interview source(s):Patient Medication history resources (including written lists, pill bottles, clinic record):Patient mailed in his medication list prior to surgery Primary pharmacy.[facility] Additional medication history information not noted on [employer] med list :None Time spent in this activity: 40 minutes Prior to Admission medications Medication Sig Last Dose Taking? Auth Provider Acetaminophen (TYLENOL PO) Take 500 mg by mouth 3 times daily as needed 09/27/2018 at PM Yes Reported, Patient apixaban ANTICOAGULANT (ELIQUIS) 2.5 MG tablet Take 1 tablet (2.5 mg) by mouth 2 times daily 09/27/2018 at AM Yes Luis Antonio Quintanilla MD atorvastatin (LIPITOR) 40 MG tablet Take 1 tablet (40 mg) by mouth daily Patient taking differently: Take 40 mg by mouth every evening 09/27/2018 at PM Yes Adrian Pleitez MD FUROSEMIDE PO Take 20 mg by mouth daily Past Week at AM Yes Reported, Patient lisinopril (PRINIVIL/ZESTRIL) 10 MG tablet Take 0.5 tablets (5 mg) by mouth daily Patient taking differently: Take 5 mg by mouth 2 times daily 09/27/2018 at AM Yes Luis Antonio Quintanilla MD METOPROLOL TARTRATE PO Take 50 mg by mouth 2 times daily. 09/28/2018 at 0730 Yes Reported, Patient SODIUM BICARBONATE PO Take 650 mg by mouth At Bedtime 09/27/2018 at HS Yes Reported, Patient TERAZOSIN HCL PO Take 5 mg by mouth At Bedtime 09/27/2018 at HS Yes Unknown, Entered By History AND SCIENCE DIVISION CHAIR documented in this encounter Procedure Notes Jacqui Odom MD - 09/28/2018 5:13 PM CST RADIOLOGY POST PROCEDURE NOTE Patient name: Speedy Mcduffie : 1940 Pre-procedure diagnosis: Abdominal aortic aneurysm Post-procedure diagnosis: Same Procedure Date/Time: September 28, 2018 5:11 PM Procedure: Thoracic aortic angiogram Abdominal angiogram Estimated blood loss: None Specimen(s) collected with description: none The patient tolerated the procedure well with no immediate complications. Significant findings: Descending thoracic aneurysm, EVAR aborted to better plan and evaluate Aorta. See imaging dictation for procedural details. Provider name: Jacqui Odom Extension Work Director(s):None AND SCIENCE DIVISION CHAIR documented in this encounter Consult Notes Carrie Levi MD - 09/28/2018 4:08 PM CST Consult Date: 09/28/2018 REQUESTING PHYSICIAN: Howard. Carmina Vásquez III, MD REASON FOR CONSULTATION REQUEST: Postoperative anticoagulation evaluation and management in a patient with chronic atrial fibrillation as well as atherosclerotic risk factor reduction strategies in a patient currently postop day #0 from endovascular aneurysm repair of a 5.5 cm nonruptured infrarenal fusiform AAA. IMPRESSION: 1. Chronic atrial fibrillation. The patient is a 78-year-old white male with renal insufficiency (creatinine 1.61, GFR 51) who has chronic atrial fibrillation and is anticoagulated chronically with apixaban at a reduced dose of 2.5 mg p.o. b.i.d. His rate is controlled. His CHADS2-VASc score is 4 denoting a 4.8% annual risk of stroke if not anticoagulated. As such, he should remain anticoagulated. I would recommend that he remain anticoagulated with Eliquis. This can be resumed this evening. His glomerular filtration rate is 51. He could conceivably be anticoagulated with 5 mg p.o. b.i.d., as opposed to his current dose of 2.5 mgp.o. b.i.d. I will review his renal function going back in time, but for the time being, we will simply keep him anticoagulated on 2.5 mg p.o. b.i.d. this evening. 2. Hyperlipidemia with LDL goal of less than 70. The patient has an LDL goal of less than 70. He is currently taking Lipitor 40 mg daily. He has an LDL of 52. At present, I would not make any changes to his antihyperlipidemic regimen of Lipitor 40 mgdaily. 3. A 46 mm nonruptured fusiform infrarenal AAA, anatomically amenable to endovascular aneurysm repair. The patient will be reevaluated in the morning in consideration of discharge. CHIEF COMPLAINT: Nonruptured AAA. The patient is a 78-year-old currently nonsmoking white male who has been recognized as having a AAA. He is currently measuring 46 mm in size. He has a brother who of a ruptured AAA. As such, he wishes to proceed with endovascular aneurysm repair. Our input was sought regarding the above. REVIEW OF SYSTEMS: The patient denies chest pain, shortness of breath, nausea, vomiting or diarrhea.The remainder of his 14-point review of systems is within normal limits MEDICATIONS PRIOR TO ADMISSION: 1. Tylenol 500 mg p.o. t.i.d. p.r.n. 2. Eliquis 2.5 mg p.o. b.i.d. 3. Lipitor 40 mg daily. 4. Lasix 20 mg daily. 5. Lisinopril 5 mg daily. 6. Metoprolol tartrate 50 mg p.o. b.i.d. 7. Sodium bicarbonate 650 mg p.o. each day at bedtime. 8. Terazosin 5 mg daily. ALLERGIES: NOVOCAIN causes bumps in his throat. PENICILLINS cause a rash. [facility] has an unspecified allergy associated with its use. PREVIOUS MEDICAL HISTORY: 1. Hyperlipidemia. 2. Hypertension. 3. Contact dermatitis. 4. AAA. 5. Colonic polyps. 6. Lumbar spinal stenosis. 7. Impaired fasting glucose. 8. Stage III chronic kidney disease. 9. Paroxysmal atrial fibrillation. PREVIOUS SURGICAL HISTORY: 1. Cervical fusion C7, December 1978. 2. Cervical fusion, Dr. Donahue at [facility] 02/18/2006. 3. Hardware removal and matrixectomy, right great toe, 09/30/2012. 4. Lumbar fusion 10/1996, L5-S1. 5. Lumbar fusion 1999, L4. 6. 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 7. Laparoscopic appendectomy, 01/2009. SOCIAL HISTORY: The patient is . He has 2 children. 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 He quit smoking [id number] after a 1/4 pack per day use history for many years. FAMILY HISTORY: Father at age 61 of a ruptured aortic aneurysm. Brother also had a ruptured aortic aneurysm. Mother had breast cancer. PHYSICAL EXAMINATION: GENERAL: Currently, the patient is awake, alert and oriented. VITAL SIGNS: Blood pressure is 146/79, heart rate 72 and regular. Respiratory rate is 13, pulse ox 98% on 3 liters nasal cannula, temperature is 97.7 degrees Fahrenheit. HEENT: Oropharynx within normal limits. NECK: No JVD, thyromegaly or lymphadenopathy. LUNGS: Clear to auscultation bilaterally without rales, wheezes or rhonchi. HEART: Regular rate and rhythm, normal S1, S2, no S3, S4, murmur, gallop or rub. ABDOMEN: Normoactive bowel sounds, soft, nondistended, nontender. EXTREMITIES: Without cyanosis, clubbing or edema. NEUROLOGIC: Nonfocal. DERMATOLOGIC: Reveals no suspicious lumps or masses. HEMATOLOGIC: Reveals no lymphadenopathy. NEUROLOGIC: Nonfocal. IMAGING: Reveals 46 mm AAA as delineated above. LDL is 52. A1c is 5.7. Creatinine is 1.46 with a GFRof 47. ASSESSMENT AND PLAN: Please see recommendations above. CARRIE LEVI MD MT: [place] Name: SPEEDY MCDUFFIE Account: [id number] : 1940 Consult Date: 09/28/2018 Document: [id number] AND SCIENCE DIVISION CHAIR documented in this encounter Miscellaneous Notes Op Note - Juna Vásquez MD - 09/29/2018 3:53 PM CST Procedure Date: 09/28/2018 PREOPERATIVE DIAGNOSIS: Abdominal aortic aneurysm. POSTOPERATIVE DIAGNOSIS: Abdominal aortic aneurysm and descending thoracic aneurysm. PROCEDURE: Bilateral exposure of common femoral arteries with aortogram. DESCRIPTION OF PROCEDURE: After performing the appropriate timeout, the patient's abdomen, groins, and legs were done, the knees were prepped and draped in the routine sterile fashion. Both common femoral arteries were exposed through oblique incisions bilaterally. Dissection was sharply carried down the common femoral arteries. They were dissected out over the course of approximately 3-4 cm and encircled proximally and distally with vessel loops. Counter incisions were then made for placement of the sheaths. Dr. Odom then entered the operating room and cannulated both common femoral arteries. During our assessment phase of the procedure, an aortogram was obtained, which showed fairly significant descending thoracic aneurysm. At this point, we did not feel that we should proceed with the infrarenal aortic repair until we had better knowledge of the extent and size of his thoracic aneurysm. Therefore, all catheters and sheaths were removed from both common femoral arteries. Both of the puncture sites and both common femoral arteries were closed with interrupted sutures of 6-0 Prolene. The wounds were then closed in layers with running sutures of #2-0 and 3-0 Vicryl with a 4-0 subcuticular Vicryl stitch in the skin. The plan will be to CT angiogram this patient's chest to find the extent of his thoracic aneurysm and whether or not he would be a good candidate for endovascular repair of this prior to his abdominal aortic aneurysm repair. This was discussed with his family post-procedure. JUAN VÁSQUEZ III, MD MT: [place] Name: SPEEDY MCDUFFIE Account: [id number] : 1940 Procedure Date: 09/28/2018 Document: [id number] AND SCIENCE DIVISION CHAIR Plan of Care - Griselda Dinero RN - 09/29/2018 8:12 AM CST A&Ox4. VSS on RA ex tutu at times. Up with SBA. LS clear, BS active, +flatus. Adequate urine output. Groin incisions CDI, no drainage. Pain tolerated with scheduled tylenol, has PRN oxy available.Voiced concerns with not having a plan, provided reassurance and active listening. On regular diet. Called for at home melatonin 10mg for sleep. Pt did not get much sleep last night and asked for a private room, charge nurse notified and will continue to follow up with this. AND SCIENCE DIVISION CHAIR Provider Notification - Levi Hollingsworth MD - 09/29/2018 12:46 AM MATH AND SCIENCE DIVISION CHAIR Brief update: Paged re: request for home melatonin 10 mg melatonin HS PRN added. Levi Hollingsworth MD 12:47 AM AND SCIENCE DIVISION CHAIR Plan of Care - Ira South RN - 09/28/2018 11:11 PM CST A&O, VSS, Lung sounds clear, Bowel sounds active,adeqaute urine output, incision right & letgroin CDI Ambulates assist 1, Regular diet, tolerating liquids with poor appetite. Pain controlled by scheduled tylenol and PRN oxycodone. AND SCIENCE DIVISION CHAIR Plan of Care - Vandana Smith RN - 09/28/2018 7:22 PM CST Pt is came from PACU.Groin site dressing clean dry and intact.Not void yet.Ice pack given.IVF running .will monitor. AND SCIENCE DIVISION CHAIR documented in this encounter Plan of Treatment Not on filedocumented as of this encounter Procedures Procedure Name Priority Date/Time Associated Comments Diagnosis CTA CHEST WITH Routine 09/29/2018 11:38 Results f or this CONTRAST AM MATH AND SCIENCE DIVISION CHAIR procedure are i n the results section. BASIC METABOLIC PANEL Timed 09/29/2018 10:06 AAA (abdominal Results for this AM MATH AND SCIENCE DIVISION CHAIR aortic aneurysm) procedure a re in (H) the results section. GLUCOSE BY METER Routine 09/29/2018 6:00 AM AAA (abdominal Res ults for this MATH AND SCIENCE DIVISION CHAIR aortic aneurysm) procedure a re in (H) the results section. ANGIOGRAM Routine 09/28/2018 2:39 PM MATH AND SCIENCE DIVISION CHAIR IR ABDOMINAL Routine 09/28/2018 2:17 PM AAA (abdominal Results for this ENDOVASCULAR STENT MATH AND SCIENCE DIVISION CHAIR aortic aneurysm) proce dure are in GRAFT (H) the results section. EKG 12-LEAD, TRACING STAT 09/28/2018 11:42 Res ults for this ONLY AM MATH AND SCIENCE DIVISION CHAIR procedure are i n the results section. XR CHEST 1 VIEW STAT 09/28/2018 11:21 Results for this AM MATH AND SCIENCE DIVISION CHAIR procedure are i n the results section. BLOOD COMPONENT Routine 09/28/2018 11:11 AAA (abdominal Result s for this AM MATH AND SCIENCE DIVISION CHAIR aortic aneurysm) procedure a re in (H) the results section. BLOOD COMPONENT Routine 09/28/2018 11:11 AAA (abdominal Result s for this AM MATH AND SCIENCE DIVISION CHAIR aortic aneurysm) procedure a re in (H) the results section. POTASSIUM STAT 09/28/2018 11:11 AAA (abdominal Results f or this AM MATH AND SCIENCE DIVISION CHAIR aortic aneurysm) procedure a re in (H) the results section. LIPID PROFILE STAT 09/28/2018 11:11 AAA (abdominal Results for this AM MATH AND SCIENCE DIVISION CHAIR aortic aneurysm) procedure a re in (H) the results section. HEMOGLOBIN A1C STAT 09/28/2018 11:11 AAA (abdominal Results for this AM MATH AND SCIENCE DIVISION CHAIR aortic aneurysm) procedure a re in (H) the results section. CREATININE STAT 09/28/2018 11:11 AAA (abdominal Results f or this AM MATH AND SCIENCE DIVISION CHAIR aortic aneurysm) procedure a re in (H) the results section. ABO/RH TYPE AND STAT 09/28/2018 11:11 AAA (abdominal Result s for this SCREEN AM MATH AND SCIENCE DIVISION CHAIR aortic aneurysm) procedure a re in (H) the results section. LAB RESULT - HIM SCAN 09/24/2018 12:00 AM MATH AND SCIENCE DIVISION CHAIR EKG CARDIAC - HIM 09/24/2018 12:00 SCAN AM MATH AND SCIENCE DIVISION CHAIR documented in this encounter Results CTA Chest with Contrast (09/29/2018 11:38 AM MATH AND SCIENCE DIVISION CHAIR) Anatomical Region Laterality Modality Chest, SUBRAD IR PROCEDURE, UMP CT CTA, RAD CT Computed Tomography Specimen (Source) Anatomical Location Collection Method / Collectio n Time Received Time / Laterality Volume Impressions 09/29/2018 4:30 PM MATH AND SCIENCE DIVISION CHAIR IMPRESSION: Tortuous descending thoracic aorta with bilobed aneurysmal dilatation measuring up to 50 mm in diameter in the distal descending aorta. 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 Pre sents for CT for evaluation measurement of thoracic aortic aneurysm COMPARISON: None TECHNIQUE: CT angiogram of the chest, abdomen, and pelvis was performed following the administration of intravenous contra st. Coronal and sagittal reformats were performed. Radiation dose for this scan was reduced using automated exposure control, adjust ment of the mA and/or kV according to patient size, or iterative reconstruction technique. Multi planar and 3-D reformatted images were created on a separate workstation. FINDINGS: VASCULATURE: The a sending thoracic aorta is nonaneur ysmal. Traditional three-vessel aortic arch branch anatomy. The great vessel origins are patent. Bilobed descending thoracic aort ic aneurysm is present. Aortic measurements are as follows: Aortic annulus: 25 mm Sinus of Valsalva: 34 mm Sinotubular junction: 24 mm. Proximal arch/distal ascending aorta: 24 mm Mid arch: 25 mm Distal arch: 25 mm Proximal descendin mm Mid ascendin mm Distal descendin mm Diaphragmatic alexey: 24 mm Supraceliac: 31 mm The descending thoracic aorta is tortuou s. The celiac access SMA and bilateral renal arteries are patent. CHEST: No pleural effusion no pneumothorax. Dave ateral basilar scarring/atelectasis. No large pulmonary nodules or focal consolidation. Bilateral apical scarring . No significant pericardial effusion. Coronary atherosclerotic disea se is present. UPPER ABDOMEN: Visualized portions of the liver spleen and pancreas are unremarkable. No hydronephrosis. Procedure Note Jacqui Odom MD - 09/29/2018For matting of this note might be different from the original. 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 Pre sents for CT for evaluation measurement of thoracic aortic aneurysm COMPARISON: None TECHNIQUE: CT angiogram of the chest, abdomen, and pelvis was performed following the administration of intravenous contra st. Coronal and sagittal reformats were performed. Radiation dose for this scan was reduced using automated exposure control, adjust ment of the mA and/or kV according to patient size, or iterative reconstruction technique. Multi planar and 3-D reformatted images were created on a separate workstation. FINDINGS: VASCULATURE: The a sending thoracic aorta is nonaneur ysmal. Traditional three-vessel aortic arch branch anatomy. The great vessel origins are patent. Bilobed descending thoracic aort ic aneurysm is present. Aortic measurements are as follows: Aortic annulus: 25 mm Sinus of Valsalva: 34 mm Sinotubular junction: 24 mm. Proximal arch/distal ascending aorta: 24 mm Mid arch: 25 mm Distal arch: 25 mm Proximal descendin mm Mid ascendin mm Distal descendin mm Diaphragmatic alexey: 24 mm Supraceliac: 31 mm The descending thoracic aorta is tortuou s. The celiac access SMA and bilateral renal arteries are patent. CHEST: No pleural effusion no pneumothorax. Dave ateral basilar scarring/atelectasis. No large pulmonary nodules or focal consolidation. Bilateral apical scarring . No significant pericardial effusion. Coronary atherosclerotic disea se is present. UPPER ABDOMEN: Visualized portions of the liver spleen and pancreas are unremarkable. No hydronephrosis. IMPRESSION: Tortuous descending thoracic aorta with bilobed aneurysmal dilatation measuring up to 50 mm in diameter in the distal descending aorta. JACQUI ODOM MD Juan Vásquez MD IMG CT ORDERABLES Basic metabolic panel (09/29/2018 10:06 AM MATH AND SCIENCE DIVISION CHAIR) [facility] Time Signature Sodium 141 133 - 144 09/29/2018 [facility] mmol/L 10:31 AM [facility] Potassium 4.5 3.4 - 5.3 09/29/2018 [facility] mmol/L 10:31 AM [facility] Chloride 109 94 - 109 09/29/2018 [facility] mmol/L 10:31 AM [facility] Carbon Dioxide 25 20 - 32 09/29/2018 [place] mmol/L 10:31 AM [facility] Anion Gap 7 3 - 14 09/29/2018 [place] mmol/L 10:31 AM [facility] Glucose 97 70 - 99 09/29/2018 [place] mg/dL 10:31 AM [facility] Urea Nitrogen 18 7 - 30 09/29/2018 [place] mg/dL 10:31 AM [facility] Creatinine 1.25 0.66 - 09/29/2018 [place] 1.25 10:31 AM [facility] mg/[facility] GFR Estimate Not Calculated >60 09/29/2018 [place] mL/min/1. 10:[address] GFR Estimate Not Calculated >60 09/29/2018 [place] If Black mL/min/1. 10:[address] Calcium 8.8 8.5 - 09/29/2018 [place] 10.1 10:31 AM [facility] mg/dL [facility] Specimen Anatomical Collection Method Collection Time Receive d Time (Source) Location / / Volume Laterality Blood specimen 09/29/2018 10:06 8 (specimen) AM MATH AND SCIENCE DIVISION CHAIR 10:07 AM MATH AND SCIENCE DIVISION CHAIR Pam Conde PA-C LAB - BLOOD ORDERABLES Performing Organization Address City/State/ZIP Code Phon e Number M [facility] [address] [id number] [phone] [facility] [address] [address], [facility] [phone] (ABNORMAL) Glucose by meter (09/29/2018 6:00 AM MATH AND SCIENCE DIVISION CHAIR) P athologist Signature Glucose 109 (H) 70 - 99 09/29/2018 [facility] mg/dL 6:18 AM MATH AND SCIENCE DIVISION CHAIR TEST, GLUCOSE Specimen Anatomical Collection Method Collection Time Receive d Time (Source) Location / / Volume Laterality 09/29/2018 6:00 AM 8 6:18 MATH AND SCIENCE DIVISION CHAIR AM MATH AND SCIENCE DIVISION CHAIR Juan Vásquez MD LAB - BEAKER POCT Performing Organization Address City/State/ZIP Code Phon e Number [facility] POINT OF CARE TEST, GLUCOSE POINT OF CARE TEST, GLUCOSE IR Abdominal Endovascular Stent Graft (09/28/2018 2:17 PM MATH AND SCIENCE DIVISION CHAIR) Anatomical Region Laterality Modality Abdomen/Pelvis Radio Fluoroscopy Specimen (Source) Anatomical Location Collection Method / Collectio n Time Received Time / Laterality Volume Impressions 09/29/2018 8:52 AM MATH AND SCIENCE DIVISION CHAIR Impression: 1. Thoracic and abdominal angiography de monstrating previously unknown thoracic aortic aneurysm as well as the known abdominal aortic aneurysm 2. Endovascular aneurysm repair was abor clover to allow for further investigation of the thoracic aortic ane urysm and future surgical planning. JACQUI ODOM MD Narrative 09/29/2018 8:52 AM MATH AND SCIENCE DIVISION CHAIR PROCEDURE(S): 1. Thoracic and abdominal aortic angiogr aphy DATE OF PROCEDURE: 09/28/2018 2:17 PM OPERATORS: Interventional radiology staff: Jacqui strauss MD Vascular surgery staff: Jami Trejo Vascular surgery fellow: Zoltan Crowell MD MEDICATIONS: ?? All medications were administered by the anesthesia team. CONTRAST: 20 mL Isovue [place] REFERENCED AIR KERMA: 163 mGy FLUOROSCOPY TIME: 2 minutes. ESTIMATED BLOOD LOSS: Minimal COMPLICATIONS: None PRE-PROCEDURE DIAGNOSIS: Abdominal aorti c aneurysm POST-PROCEDURE DIAGNOSIS: Thoracic and a bdominal aortic aneurysms CLINICAL HISTORY/INDICATION: 78-year-old male with abdominal aortic a neurysm presents for elective endovascular abdominal aortic aneurysm r epair. PROCEDURE AND FINDINGS: Following a discussion of the risks, bobby efits, indications, and alternatives to treatment, appropriate i nformed consent was obtained. The patient was brought to the hybrid OR suite and placed supine on the table. Satisfactory general endotrac heal anesthesia was induced by anesthesia staff with appropriate monito ring. The patient was sterilely prepped and draped for endovas cular aneurysm repair. A timeout was performed per [facility] protocol policy to confirm the correct patient, site and pr ocedure to be performed. Please note that due to the complex natu re of the procedure, a multi-disciplinary approach was used whi ch involved Mili Vásquez and Lei functioning as co-surgeons for t his procedure. Bilateral common femoral arteries were s urgically exposed, see separate operative report for details. A n 18-gauge singlewall needle was then inserted into the right common femoral artery through which a 0.035 inch Bentson wire was advanced int o the abdominal aorta. Exchange was made for a 6 Bol[place]ian vascula r sheath. 18-gauge singlewall needle was then advanced into the left c ommon femoral artery through which a 0.035 inch Bentson wire was adva nced in the abdominal aorta. Exchange is made for a 6 [place]ian vascular sheath. Via the left groin access, a 5 [place]ian pigtail catheter was advanced over the Bentson wire into the abdominal aorta. Via the right groin, a 5 [place]ian pigtail catheter was advanced over the Bentson w sukhjinder. The Bentson wire was noted to be above the diaphragm but loop ed into the left hemithorax. The pigtail catheter was advanced into t he descending thoracic aorta and aortogram was performed. This showed a large, previously unknown, thoracic aortic aneurysm. Additionally, the abdominal aortic aneurysm note from prior CT was also seen. The pr oximal extent of the thoracic aneurysm was unknown as there has not be en prior thoracic imaging. The decision was made to abort the procedure and obtain further imaging of the chest for further operative planning . Bilateral groins were surgically closed, see separate operative report for details. Sterile bandages were placed. The patien t was awakened from general endotracheal anesthesia and transferred to the recovery room in satisfactory condition. There were no im mediate procedure-related complications. Procedure Note Jacqui Odom MD - 09/29/2018For matting of this note might be different from the original. PROCEDURE(S): 1. Thoracic and abdominal aortic angiogr aphy DATE OF PROCEDURE: 09/28/2018 2:17 PM OPERATORS: Interventional radiology staff: Jacqui strauss MD Vascular surgery staff: Jami Trejo Vascular surgery fellow: Zoltan Crowell MD MEDICATIONS: All medications were administered by the anesthesia team. CONTRAST: 20 mL Isovue IA REFERENCED AIR KERMA: 163 mGy FLUOROSCOPY TIME: 2 minutes. ESTIMATED BLOOD LOSS: Minimal COMPLICATIONS: None PRE-PROCEDURE DIAGNOSIS: Abdominal aorti c aneurysm POST-PROCEDURE DIAGNOSIS: Thoracic and a bdominal aortic aneurysms CLINICAL HISTORY/INDICATION: 78-year-old male with abdominal aortic a neurysm presents for elective endovascular abdominal aortic aneurysm r epair. PROCEDURE AND FINDINGS: Following a discussion of the risks, bobby efits, indications, and alternatives to treatment, appropriate i nformed consent was obtained. The patient was brought to the hybrid OR suite and placed supine on the table. Satisfactory general endotrac heal anesthesia was induced by anesthesia staff with appropriate monito ring. The patient was sterilely prepped and draped for endovas cular aneurysm repair. A timeout was performed per [facility] protocol policy to confirm the correct patient, site and pr ocedure to be performed. Please note that due to the complex natu re of the procedure, a multi-disciplinary approach was used [facility] involved Mili Vásquez and Lei functioning as co-surgeons for t his procedure. Bilateral common femoral arteries were s urgically exposed, see separate operative report for details. A n 18-gauge singlewall needle was then inserted into the right common femoral artery through which a 0.035 inch Bentson wire was advanced int o the abdominal aorta. Exchange was made for a 6 Bolivian vascula r sheath. 18-gauge singlewall needle was then advanced into the left c ommon femoral artery through which a 0.035 inch Bentson wire was adva nced in the abdominal aorta. Exchange is made for a 6 [place]ivian vascular sheath. Via the left groin access, a 5 [place]ivian pigtail catheter was advanced over the Bentson wire into the abdominal aorta. Via the right groin, a 5 [place]ivian pigtail catheter was advanced over the Bentson w sukhjinder. The Bentson wire was noted to be above the diaphragm but loop ed into the left hemithorax. The pigtail catheter was advanced into t he descending thoracic aorta and aortogram was performed. This showed a large, previously unknown, thoracic aortic aneurysm. Additionally, the abdominal aortic aneurysm note from prior CT was also seen. The pr oximal extent of the thoracic aneurysm was unknown as there has not be en prior thoracic imaging. The decision was made to abort the procedure and obtain further imaging of the chest for further operative planning . Bilateral groins were surgically closed, see separate operative report for details. Sterile bandages were placed. The patien t was awakened from general endotracheal anesthesia and transferred to the recovery room in satisfactory condition. There were no im mediate procedure-related complications. Impression: 1. Thoracic and abdominal angiography de monstrating previously unknown thoracic aortic aneurysm as well as the known abdominal aortic aneurysm 2. Endovascular aneurysm repair was abor clover to allow for further investigation of the thoracic aortic ane urysm and future surgical planning. JACQUI ODOM MD Juan Vásquez MD IMG IR ORDERABLES EKG 12-lead, tracing only (09/28/2018 11:42 AM MATH AND SCIENCE DIVISION CHAIR) [facility] Method Time Signature Interpretation ECG Click View RADIOLOGY Image link RESULTS to view waveform and result Specimen (Source) Anatomical Collection Method Collection Time Re ceived Time Location / / Volume Laterality 09/28/2018 11:42 AM MATH AND SCIENCE DIVISION CHAIR Juan Vásquez MD ECG ORDERABLES Performing Organization Address City/State/ZIP Code Phon e Number RADIOLOGY RESULTS XR Chest 1 View (09/28/2018 11:21 AM MATH AND SCIENCE DIVISION CHAIR) Anatomical Region Laterality Modality Chest Digital Radiography Specimen (Source) Anatomical Location Collection Method / Collectio n Time Received Time / Laterality Volume Impressions 09/28/2018 1:09 PM MATH AND SCIENCE DIVISION CHAIR IMPRESSION: Heart size similar to prior. The thoracic aorta is elongated. No airspace consolidation or pneumothorax. There appears to be a small right pleural effusion. ELAINA HUNTLEY MD Narrative 09/28/2018 1:09 PM MATH AND SCIENCE DIVISION CHAIR CHEST ONE VIEW ??09/28/2018 11:21 AM HISTORY: ??Pre-op AAA surgery. COMPARISON: 05/07/2017 Procedure Note Elaina Huntley MD - 09/28/2018Forma tting of this note might be different from the original. CHEST ONE VIEW 09/28/2018 11:21 AM HISTORY: Pre-op AAA surgery. COMPARISON: 05/07/2017 IMPRESSION: Heart size similar to prior. The thoracic aorta is elongated. No airspace consolidation or pneumothorax. There appears to be a small right pleural effusion. ELAINA HUNTLEY MD Juan Vásquez MD IMG DIAGNOSTIC IMAGING ORDER [place] Blood component (09/28/2018 11:11 AM MATH AND SCIENCE DIVISION CHAIR) [facility] Method Time Signature Unit Number [id number] 09/28/2018 [facility] 1:21 PM [facility] Blood Red Blood 09/28/2018 [facility] Component Cells 1:21 PM [facility] Reduced Division 00 09/28/2018 [facility] Number 1:21 PM [facility] Status of No longer 10/02/2018 [facility] Unit available 3:00 AM [facility] 10/02/2018 HOSPITAL 0300 Blood Product [id number] 09/28/2018 [facility] Code 1:21 PM [facility] Unit Status [facility] Specimen Anatomical Collection Method Collection Time Receive d Time (Source) Location / / Volume Laterality 09/28/2018 11:11 09/28/2018 AM MATH AND SCIENCE DIVISION CHAIR 11:44 AM MATH AND SCIENCE DIVISION CHAIR Juan Vásquez MD LABORATORY Performing Organization Address City/State/ZIP Code Phon e Number M [facility] [address] [place], [place] [address] [facility] [address] [address], [facility] [phone] [facility] [address] [place], [place] [address], [facility] [phone] Blood component (09/28/2018 11:11 AM MATH AND SCIENCE DIVISION CHAIR) Patholo gist Method Time Signature Unit Number [id number] 09/28/2018 [facility] 1:21 PM MATH AND SCIENCE DIVISION CHAIR [facility] Blood Red Blood 09/28/2018 [facility] Component Cells 1:21 PM MATH AND SCIENCE DIVISION CHAIR [facility] Reduced Division 00 09/28/2018 [facility] Number 1:21 PM [facility] Status of No longer 10/02/2018 [facility] Unit available 3:00 AM [facility] 10/02/2018 HOSPITAL 0300 Blood Product [id number] 09/28/2018 [facility] Code 1:21 PM [facility] Unit Status [facility] Specimen Anatomical Collection Method Collection Time Receive d Time (Source) Location / / Volume Laterality 09/28/2018 11:11 09/28/2018 AM MATH AND SCIENCE DIVISION CHAIR 11:44 AM MATH AND SCIENCE DIVISION CHAIR Juan Vásquez MD LABORATORY Performing Organization Address City/State/ZIP Code Phon e Number M [facility] [address] [place], [place] [address] [facility] [address] [place] [address], [facility] [id number] [facility] [address] [place], [place] [address], [facility] [phone] Potassium (09/28/2018 11:11 AM MATH AND SCIENCE DIVISION CHAIR) P athologist Signature Potassium 4.0 3.4 - 5.3 09/28/2018 [place] mmol/L 12:22 PM MATH AND SCIENCE DIVISION CHAIR [facility] Specimen Anatomical Collection Method Collection Time Receive d Time (Source) Location / / Volume Laterality Blood specimen 09/28/2018 11:11 12/11/201 8 (specimen) AM MATH AND SCIENCE DIVISION CHAIR 11:43 AM MATH AND SCIENCE DIVISION CHAIR Ramiro Card MD LAB - BLOOD ORDERABLES Performing Organization Address City/State/ZIP Code Phon e Number M [facility] [address] [place] [address] [facility] [address] [place] [address], [place] [phone] Lipid panel (09/28/2018 11:11 AM MATH AND SCIENCE DIVISION CHAIR) Analysis Performed At [facility] logist Time Signature Cholesterol 143 <200 mg/dL 09/28/2018 [facility] 12:22 PM [facility] Triglycerides 115 <150 mg/dL 09/28/2018 [facility] 12:24 PM [facility] HDL Cholesterol 68 >39 mg/dL 09/28/2018 [facility] 12:24 PM [facility] LDL Cholesterol 52 <100 mg/dL 09/28/2018 [facility] Calculated 12:24 PM [facility] Comment: Desirable: <100 mg/dl Non HDL Cholesterol 75 <130 mg/dL 09/28/2018 12:24 PM [facility] Specimen Anatomical Collection Method Collection Time Receive d Time (Source) Location / / Volume Laterality Blood specimen 09/28/2018 11:11 8 (specimen) AM [facility] AND SCIENCE DIVISION CHAIR 11:43 AM MATH AND SCIENCE DIVISION CHAIR Juan Vásquez MD LAB - BLOOD ORDERABLES Performing Organization Address City/State/ZIP Code Phon e Number M [facility] [id number] [place] [address] [facility] [address] [place] [address], [place] [phone] (ABNORMAL) ABO/Rh type and screen (09/28/2018 11:11 AM MATH AND SCIENCE DIVISION CHAIR) Component Value Ref Test Analysis Performed At [facility] gist Range Method Time Signature Units Ordered 2 09/28/2018 [facility] 11:54 AM [facility] ABO O 09/28/2018 [facility] 12:28 PM [facility] RH(D) Pos [facility] Antibody Screen Pos (A) 09/28/2018 [facility] 12:28 PM [facility] Test Valid Only [place] 09/28/2018 [facility] At [facility] 11:47 AM [facility] Specimen Expires 10/01/2018 09/28/2018 [facility] 11:47 AM [facility] Crossmatch Red Blood Cells 09/28/2018 [facility] 11:54 AM [facility] Blood Bank Delay in availability of Red Blood Cells called to 09/28/2018 [facility] Comment Esme in Preop at 1228 re 12:37 PM [facility] Antibody ANTI-[place] 09/28/2018 [facility] Identification 1:26 PM [facility] Antigen Type [place] Negative 09/28/2018 [facility] 1:26 PM [facility] Specimen Anatomical Collection Method Collection Time Receive d Time (Source) Location / / Volume Laterality Blood specimen 09/28/2018 11:11 8 (specimen) AM [facility] SCIENCE DIVISION CHAIR 11:44 AM M[facility] AND SCIENCE DIVISION CHAIR Juan Vásquez MD LAB - BLOOD BANK TEST ORDER Performing Organization Address City/State/ZIP Code Phon e Number [facility] [address] [address] [facility] [address] [place] [address], [place] [phone] (ABNORMAL) Hemoglobin A1c (09/28/2018 11:11 AM MATH AND SCIENCE DIVISION CHAIR) P athologist Signature Hemoglobin A1C 5.7 (H) 0 - 5.6 % 09/28/2018 [facility] 12:08 PM [facility] Comment: Normal <5.7% Prediabetes 5.7-6.4% ??Diab etes 6.5% or higher - adopted from ADA consensus guidelines. Specimen Anatomical Collection Method Collection Time Receive d Time (Source) Location / / Volume Laterality Blood specimen 09/28/2018 11:11 8 (specimen) AM [facility] AND SCIENCE DIVISION CHAIR 11:43 AM MATH AND SCIENCE DIVISION CHAIR Juan Vásquez MD LAB - BLOOD ORDERABLES Performing Organization Address City/State/ZIP Code Phon e Number [facility] [address] [address] [facility] [address] [place] [address], [place] [phone] (ABNORMAL) Creatinine (09/28/2018 11:11 AM MATH AND SCIENCE DIVISION CHAIR) P athologist Signature Creatinine 1.46 (H) 0.66 - 09/28/2018 [facility] 1.25 mg/dL 12:22 PM [facility] GFR Estimate 47 (L) >60 09/28/2018 [facility] [place] mL/min/1.7 12:[address] Comment: Non GFR Calc GFR Estimate If 57 (L) >60 mL/min/1.7m2 09/28/2018 12:22 PM [facility] Comment: GFR Calc Specimen Anatomical Collection Method Collection Time Receive d Time (Source) Location / / Volume Laterality Blood specimen 09/28/2018 11:11 8 (specimen) AM [facility] AND SCIENCE DIVISION CHAIR 11:43 AM MATH AND SCIENCE DIVISION CHAIR Juan Vásquez MD LAB - BLOOD ORDERABLES Performing Organization Address City/State/ZIP Code Phon e Number [facility] [address] [address] [facility] [address] [address], [place] [phone] LAB RESULT - HIM SCAN (09/24/2018 12:00 AM MATH AND SCIENCE DIVISION CHAIR) Specimen (Source) Anatomical Location Collection Method / Collectio n Time Received Time / Laterality Volume 09/24/2018 Narrative This result has an attachment that is no t available. Provider Outside NON-BEAKER LAB TESTING EKG CARDIAC - HIM SCAN (09/24/2018 12:00 AM MATH AND SCIENCE DIVISION CHAIR) Specimen (Source) Anatomical Location Collection Method / Collectio n Time Received Time / Laterality Volume 09/24/2018 Narrative This result has an attachment that is no t available. Provider Outside ECG ORDERABLES documented in this encounter Visit Diagnoses Diagnosis AAA (abdominal aortic aneurysm) (H) Abdominal aneurysm without mention of ru pture documented in this encounter Administered Medications Inactive Administered Medications - up to 3 most recent administrations Medication Order MAR Action Action Date Dose Rate Site acetaminophen (TYLENOL) tablet 975 Given 09/29/2018 5:41 AM M[facility] AND SCIENCE DIVISION CHAIR 975 mg mg 975 mg, Oral, EVERY 8 HOURS, First dose on Thu09/28/18 at 2200, For 3 days, Do not use if patient has an active opioid/acetaminophen combined analgesic product ordered for pain. Maximum acetaminophen dose from all sources = 75 mg/kg/day not to exceed 4 grams/day., Post-procedure Given 09/28/2018 9:50 PM M[facility] AND SCIENCE DIVISION CHAIR 975 mg apixaban ANTICOAGULANT (ELIQUIS) tablet 2.5 Given 09/29/2018 8:22 AM M[facility] AND SCIENCE DIVISION CHAIR 2.5 mg mg 2.5 mg, Oral, 2 TIMES DAILY, First dose on Thu09/29/18 at 0900 atorvastatin (LIPITOR) tablet 40 mg Given 09/28/2018 9:50 PM [facility] SCIENCE DIVISION CHAIR 40 mg 40 mg, Oral, EVERY EVENING, First dose on Thu09/28/18 at 2000 ceFAZolin (ANCEF) intermittent infusion Given 09/29/2018 5:4 1 AM MATH AND SCIENCE DIVISION CHAIR 2 g 200 mL/hr 2 g in 100 mL dextrose PRE-MIX Routine, 2 g, Intravenous, EVERY 8 HOURS, First dose on Thu09/28/18 at 2100, For 2 doses, Indications: Perioperative Pharmacoprophylaxis, Post-procedure Given 09/28/2018 9:55 PM M[facility] AND SCIENCE DIVISION CHAIR 2 g 200 mL/hr fentaNYL (PF) (SUBLIMAZE) injection 100 mcg Given 09/28/2018 12:07 PM M[facility] AND SCIENCE DIVISION CHAIR 50 mcg 100 mcg, Intravenous, ONCE, On Thu09/28/18 at 1100, For 1 dose, For ordered IV doses 1-100 mcg give IV Push undiluted over a minimum of 3-5 minutes. fentaNYL (PF) (SUBLIMAZE) injection 25-5 0 mcg Given 09/28/2018 4:04 PM M[facility] AND SCIENCE DIVISION CHAIR 25 mcg 25-50 mcg, Intravenous, EVERY 2 MIN PRN, other, acute pain, Starting on Thu09/28/18 at 1527, MAX cumulative dose = 250 mcg. Use fentaNYL (SUBLIMAZE) initially, as a short acting agent for acute pain control. If insufficient, or a longer acting agent is needed, begin morphine or HYDROmorphone (DILAUDID) if ordered. For ordered IV doses 1-100 mcg give IV Push undiluted over a minimum of 3-5 minutes., PACU Given 09/28/2018 3:50 PM M[facility] AND SCIENCE DIVISION CHAIR 25 mcg Given 09/28/2018 3:41 PM MATH AND SCIENCE DIVISION CHAIR 25 mcg hydrALAZINE (APRESOLINE) injection 2.5-5 mg Given 09/28/2018 4:10 PM M[facility] AND SCIENCE DIVISION CHAIR 5 mg 2.5-5 mg, Intravenous, EVERY 10 MIN PRN, high blood pressure, for Systolic Blood Pressure greater than 160 mmHg and Heart Rate less than 60 bpm., Administer over 1 Minutes, Starting on Thu09/28/18 at 1527, Max cumulative dose = 20 mg. FOR USE IN PACU ONLY, DC WHEN TRANSFERRED TO FLOOR. For ordered IV doses 1-40 mg, give IV Push undiluted over 1 minute., PACU iopamidol (ISOVUE-370) solution 80 mL Given 09/29/2018 11:37 AM MATH AND SCIENCE DIVISION CHAIR 80 mLs 80 mL, Intravenous, ONCE, On Thu09/29/18 at 1130, For 1 dose lactated ringers infusion New Bag 09/28/2018 12:16 PM MATH AND SCIENCE DIVISION CHAIR 25 mL/hr at 25 mL/hr, Intravenous, CONTINUOUS, IF patient NOT on dialysis., Pre-procedure, Starting on Thu09/28/18 at 1115, Until Thu09/28/18 at 1457 lactated ringers infusion New Bag 09/29/2018 2:48 AM MATH AND SCIENCE DIVISION CHAIR 125 mL/hr at 125 mL/hr, Intravenous, CONTINUOUS, NOT for patient on renal dialysis. Saline lock after 1 liter if taking PO fluids., Post-procedure, Starting on Thu09/28/18 at 1800, Until Thu09/29/18 at 1753 Rate/Dose Verify 09/29/2018 12:39 AM MATH AND SCIENCE DIVISION CHAIR 125 mL/hr New Bag 09/28/2018 6:31 PM MATH AND SCIENCE DIVISION CHAIR 125 mL/hr lidocaine 1 % 1 mL Given 09/28/2018 12:00 PM MATH AND SCIENCE DIVISION CHAIR 0.3 mLs 1 mL, Other, EVERY 1 HOUR PRN, mild pain with VAD insertion or accessing implanted port, Starting on Thu09/28/18 at 1101, Do NOT give if patient has a history of allergy to any local anesthetic or any louie product. MAX dose 1 mL subcutaneous OR intradermal in divided doses., Pre-procedure lisinopril (PRINIVIL/ZESTRIL) tablet 5 m g Given 09/29/2018 8:21 AM M[facility] AND SCIENCE DIVISION CHAIR 5 mg 5 mg, Oral, 2 TIMES DAILY, First dose on Thu09/28/18 at 2100 Given 09/28/2018 9:52 PM M[facility] AND SCIENCE DIVISION CHAIR 5 mg melatonin tablet 10 mg Given 09/29/2018 2:48 AM MATH AND SCIENCE DIVISION CHAIR 10 mg 10 mg, Oral, AT BEDTIME PRN, sleep, Starting on Thu09/29/18 at 0044 metoprolol tartrate (LOPRESSOR) tablet 5 0 mg Given 09/29/2018 8:21 AM M[facility] AND SCIENCE DIVISION CHAIR 50 mg 50 mg, Oral, 2 TIMES DAILY, First dose on Thu09/28/18 at 2100 Given 09/28/2018 9:50 PM MATH AND SCIENCE DIVISION CHAIR 50 mg midazolam (VERSED) injection 2 mg Given 09/28/2018 12:10 PM M[facility] AND SCIENCE DIVISION CHAIR 1 mg 2 mg, Intravenous, ONCE, On Thu09/28/18 at 1100, For 1 dose, For ordered IV doses 0.1-2.5 mg give IV Push slowly titrated over a minimum of 2 minutes. Dilute each 1mg in 4mL of NS. Given 09/28/2018 12:07 PM M[facility] AND SCIENCE DIVISION CHAIR 1 mg oxyCODONE (ROXICODONE) tablet 5 mg Given 09/28/2018 10:49 PM M[facility] AND SCIENCE DIVISION CHAIR 5 mg 5 mg, Oral, EVERY 3 HOURS PRN, other, pain control or improvement in physical function. Hold dose for analgesic side effects., Starting on Thu09/28/18 at 1751, Notify provider to assess for uncontrolled pain or analgesic side effects. Hold while on PUBLIC HEALTH ADMINISTRATOR or with regular IV opioid dosing. Maximum total is 40 mg in 24 hours., Post-procedure Saline flush Given 09/29/2018 11:37 AM M[facility] AND SCIENCE DIVISION CHAIR 80 mLs Intravenous, 80 mL, ONCE, On Thu09/29/18 at 1130, For 1 dose sodium chloride (PF) 0.9% PF flush 3 mL Given 09/28/2018 9:58 PM M[facility] AND SCIENCE DIVISION CHAIR 3 mLs 3 mL, Intracatheter, EVERY 8 HOURS, First dose on Thu09/28/18 at 2200, And Q1H PRN, to lock peripheral IV dormant line., Post-procedure terazosin (HYTRIN) capsule 5 mg Given 09/28/2018 10:49 PM M[facility] AND SCIENCE DIVISION CHAIR 5 mg 5 mg, Oral, AT BEDTIME, First dose on Thu09/28/18 at 2200 documented in this encounter Active and Recently Administered Medications Times are shown in MATH AND SCIENCE DIVISION CHAIR. Scheduled Medication Order 09/27/2018 09/28/2018 09/29/2018 acetaminophen (TYLENOL) tablet 975 mg 21 50 (Given - Provider: Ira South RN) 0541 (Given - Provider: Griselda Dinero RN)1457 (Not Given - Provider: Jose Dave RN - Reason: Patient/family refused) 975 mg, Oral, EVERY 8 HOURS, First dose on Thu09/28/18 at 2200, For 3 days, Do not use if patient has an active opioid/acetaminophen combined analgesic product ordered for pain. Maximum acetaminophen d ose from all sources = 75 mg/kg/day not to exceed 4 grams/da y., Post-procedure apixaban ANTICOAGULANT (ELIQUIS) tablet 2.5 mg (CANCELED) 821 (Given - Provider: Jose Dave RN) 2.5 mg, Oral, 2 TIMES DAILY, First dose on Thu09/29/18 at 0900 atorvastatin (LIPITOR) tablet 40 mg 2149 (Given - Provider: Ira South, JOSE) 40 mg, Oral, EVERY EVENING, First dose on Thu09/28/18 at 2000 ceFAZolin (ANCEF) intermittent infusion 2 g in 100 mL dextrose PRE-MIX (COMPLETED) 2154 (Given - Provider: Ira South RN ) 05 (Given - Provider: Griselda Dinero RN) 2 g, Intravenous, EVERY 8 HOURS, First d ose on Thu09/28/18 at 2100, For 2 doses, Indications: Perioperative Pharmacoprophylaxis, Post-procedure clindamycin (CLEOCIN) infusion 900 mg (COMPLETED) 1216 (Handoff - Provider: Isis Rivera RN)1318 (Given - Provider: Mattie Marmolejo APRN DRAPERY HEAD FORMER) 900 mg, Intravenous, PRE-OP/PRE-PROCEDUR E, Starting Thu09/28/18 at 1101, For 1 dose, Give first dose within 1 hour PRIOR to incision., Indications: Perioperative Pharmacoprophylaxis, Pre-procedure fentaNYL (PF) (SUBLIMAZE) injection 100 mcg (COMPLETED) 1207 (Given - Provider: Isis Rivera RN) 100 mcg, Intravenous, ONCE, Thu09/28/18 at 1100, For 1 dose, For ordered IV doses 1-100 mcg give IV Push undiluted over a minimum of 3-5 minutes. iopamidol (ISOVUE-370) solution 80 mL (COMPLETED) 1137 (Given - Provider: Fela Ny) 80 mL, Intravenous, ONCE, Thu09/29/18 at 1130, For 1 dose lisinopril (PRINIVIL/ZESTRIL) tablet 5 mg 2151 (Given - Provider: Ira South RN) 08 (Given - Provider: Cary Harper) 5 mg, Oral, 2 TIMES DAILY, First dose on Thu09/28/18 at 2100 metoprolol tartrate (LOPRESSOR) tablet 50 mg 2149 (Given - Provider: Ira South RN) 08 (Given - Provider: Cary Harper) 50 mg, Oral, 2 TIMES DAILY, First dose on Thu09/28/18 at 2100 midazolam (VERSED) injection 2 mg (COMPLETED) 1207 (Given - Provider: Isis Rivera RN)1210 (Given - Provider: Isis Rivera RN) 2 mg, Intravenous, ONCE, Thu09/28/18 at 1100, For 1 dose, For ordered IV doses 0.1-2.5 mg give IV Push slowly titrated over a minimum of 2 minutes. Dilute each 1mg in 4mL of NS. Saline flush (COMPLETED) 1137 (G iven - Provider: Fela Ny) Intravenous, 80 mL, ONCE, Thu09/29/18 at 1130, For 1 dose sodium chloride (PF) 0.9% PF flush 3 mL 215 (Given - Provider: Ira South RN) 0555 (Not Given - Provider: Griselda bradshaw RN - Reason: IV Infusing)1457 (Not Given - Provider: Jose Dave RN - Reason: Loss of IV access) 3 mL, Intracatheter, EVERY 8 HOURS, Firs t dose on Thu09/28/18 at 2200, And Q1H PRN, to lock peripheral IV dormant line., Post-procedure terazosin (HYTRIN) capsule 5 mg 2248 (Given - Pr ovider: Ira South RN) 5 mg, Oral, AT BEDTIME, First dose on Thu09/28/18 at 2200 Continuous Medication Order 09/27/2018 09/28/2018 09/29/2018 lactated ringers infusion (CANCELED) 121 6 (New Bag - Provider: Isis Rivera, JOSE)1319 (Anesthesia Volume Adjustment - Provider: Mattie Marmolejo APRN [employer] FORMER)1432 (Anesthesia Volume Adjustment - Provider: Mattie Marmolejo APRN [employer] FORMER) at 25 mL/hr, Intravenous, CONTINUOUS, IF patient NOT on dialysis., Pre- procedure, Starting Thu09/28/18 at 1115, Until Thu09/28/18 at 1457 lactated ringers infusion 1831 (New Bag - Provid er: Vandana Smith RN) 0039 (Rate/Dose Verify - Provider: Griselda Dinero, RN)0248 (New Bag - Provider: Griselda Dinero, JOSE)1202 (Stopped - Provider: Jose Dave RN) at 125 mL/hr, Intravenous, CONTINUOUS, N OT for patient on renal dialysis. Saline lock after 1 liter if taking PO fluids., Post-procedure, Starting Thu09/28/18 at 1800, Until Thu09/29/18 at 1753 PRN Medication Order 09/27/2018 09/28/2018 09/29/2018 fentaNYL (PF) (SUBLIMAZE) injection 25-50 mcg (CANCELED) 1541 (Given - Provider: Rylee Muñiz RN)1550 (Given - Provider: Rylee Muñiz RN)1604 (Given - Provider: Rylee Muñiz RN) 25-50 mcg, Intravenous, EVERY 2 MIN PRN, Starting Thu09/28/18 at 1527, other, acute pain, MAX cumulative dose = 250 mcg. Use fentaNYL (SUBLIMAZE) initially, as a short acting agent for acute pain contr ol. If insufficient, or a longer acting agent is needed, begin morphine or HYDROmorphone (DILAUDID) if ordered. For ordered IV doses 1-100 mcg give IV Push undiluted over a minimum of 3-5 minutes., PACU heparin 10,000 units in 1000 mL 0.9% sodium chloride (CANCEL ED) 1335 (Given - Provider: Juan Vásquez MD)1336 (Given - Provider: Juan Vásquez MD)1337 (Given - Provider: Juan Vásquez MD) PRN, Starting Thu09/28/18 at 1335, Intra-procedure hydrALAZINE (APRESOLINE) injection 2.5-5 mg (CANCELED) 1610 (Given - Provider: Rylee Muñiz RN - Comment: BP 163/73) 2.5-5 mg, Intravenous, EVERY 10 MIN PRN, high blood pressure, for Systolic Blood Pressure greater than 160 mmHg and Heart Rate less than 60 bpm., Administer over 1 Minutes, Starting Thu09/28/18 at 1527 , Max cumulative dose = 20 mg. FOR USE I N PACU ONLY, DC WHEN TRANSFERRED TO FLOOR. For ordered IV doses 1-40 mg, give IV Push undiluted over 1 minute., PACU lidocaine (LMX4) cream Topical, EVERY 1 HOUR PRN, pain, with VA D insertion or accessing implanted port., Starting Thu09/28/18 at 1751, Do NOT give if patient has a history of allergy to any local anesthetic or any louie pr oduct. Apply 30 minutes prior to VAD ins ertion or port access. MAX Dose: 2.5 g (?? of 5 g tube), Post-procedure lidocaine 1 % 1 mL (CANCELED) 1200 (Give n - Provider: Isis Rivera RN) 1 mL, Other, EVERY 1 HOUR PRN, mild pain with VAD insertion or accessing implanted port, Starting Thu09/28/18 at 1101, Do NOT give if patient has a history of allergy to any local anesthetic or any ca ine product. MAX dose 1 mL subcutaneous OR intradermal in divided doses., Pre-procedure lidocaine 1 % 1 mL 1 mL, Other, EVERY 1 HOUR PRN, mild pain with VAD insertion or accessing implanted port, Starting Thu09/28/18 at 1751, Do NOT give if patient has a history of allergy to any local anesthetic or any ca ine product. MAX dose 1 mL subcutaneous OR intradermal in divided doses., Post-procedure melatonin tablet 10 mg 0248 (Giv en - Provider: Griselda Dinero RN) 10 mg, Oral, AT BEDTIME PRN, sleep, Starting Thu09/29/18 at 004 4 naloxone (NARCAN) injection 0.1-0.4 mg 0.1-0.4 mg, Intravenous, EVERY 2 MIN PRN , opioid reversal, Starting Thu09/28/18 at 1751, For respiratory rate LESS than or EQUAL to 8. Partial reversal dose: 0.1 mg titrated q 2 minutes for Analgesia S rosanne Effects Monitoring Sedation Level of 3 (frequently drowsy, arousable, drifts to sleep during conversation).Full reversal dose: 0.4 mg bolus for Analgesia Side Effects Monitoring Sedation Level of 4 (somnolent, minimal or no response to st imulation). For ordered IV doses 0.1-2mg give IVP. Give each 0.4mg over 15 seconds in emergency situations. For non- emergent situations further dilute in 9mL of N S to facilitate titration of response., Post-procedure oxyCODONE (ROXICODONE) tablet 5 mg 2248 (Given - Provider: Ira South RN) 5 mg, Oral, EVERY 3 HOURS PRN, other, pa in control or improvement in physical function. Hold dose for analgesic side effects., Starting Thu09/28/18 at 1751, Notify provider to assess for uncontrolled p ain or analgesic side effects. Hold whil e on PUBLIC HEALTH ADMINISTRATOR or with regular IV opioid dosing. Maximum total is 40 mg in 24 hours., Post-procedure sodium chloride (PF) 0.9% PF flush 3 mL 3 mL, Intracatheter, EVERY 1 HOUR PRN, l ine flush, for peripheral IV flush post IV meds, Starting Thu09/28/18 at 1751, Post-procedure documented in this encounter Care Teams Director Of Volunteer Services Relationship Specialty Start Date End Date [facility], [facility] PCP - General 05/12/[address] [place] [address] documented as of this encounter
--- OUTSIDE RECORDS SUMMARY | 2022-05-28 05:04 | XMS_ITS | Encounter Summary ---
:1940 Author Organization [place] Address [facility] [place] [address] Care Team Providers Name Role Phone Clinic, [facility] Primary Care Provider [phone] Reason for Visit Reason Comments Consult U/S done 05/17/2018 Encounter Details Date Type Department Care Team Description 06/03/[address] [facility] Jaun Lewis aortic Surgery Clinic MD Elijah aneurysm (AAA) without [place] [address] rupture (H) (Primary [address]) [address] [place] [address] [place], [place] [phone] [id number] (Work) [phone] Social History Tobacco Use Types Packs/Day Years Used Date Former Smoker Smokeless Tobacco: Never Used Tobacco Cessation: Counseling [...] Sign Reading Time Taken Comments Blood Pressure 120/64 06/03/2018 12:48 PM CDT Pulse 52 06/03/2018 12:48 PM CDT Temperature - - Respiratory Rate 16 06/03/2018 12:48 PM CDT Oxygen Saturation 99% 06/03/2018 12:48 PM CDT Inhaled Oxygen Concentration - - Weight 86.2 kg (190 lb) 06/03/2018 12:48 PM CDT Height 177.8 cm (5' 10) 06/03/2018 12:48 PM CDT Body Mass Index 27.26 06/03/2018 12:48 PM CDT documented in this encounter Progress Notes Mattie Blair CMA - 06/03/2018 1:00 PM CDT HPI ROS (Review of Systems): Positive for aneurysm and back injury. Cardiovascular: Positive for hypertension, hyperlipidemia and arrhythmia. MUSCULOSKELETAL: Positive for back pain. Physical Exam Juan Lewis MD - 06/03/2018 1:00 PM CDT 77 y/o male with an asymptomatic AAA present for a number of years. Last year's U/S showed a maximumdiameter of 4.1 cm this year it is 4.6cm Proximal aorta is 2.3cm. His father of a ruptured AAA at age 61. The patinet is quite anxious in regard to his AAA. No symptoms of claudication. Grade 3 kidney disease with a creatinine of 1.6. He would like to entertain options of repair. Discussed risks goals and alternatives in detail. Will check a CTA to see if he is a candidate for endovascular repair. Face to face time 45 minutes greater than 50% in consultation. documented in this encounter Plan of Treatment Not on filedocumented as of this encounter Visit Diagnoses Diagnosis Abdominal aortic aneurysm (AAA) without rupture (H) - Primary documented in this encounter Care Teams Roll On Man Relationship Specialty Start Date End Date [facility], [facility] PCP - General 05/12/[address] [place], [place] [id number] documented as of this encounter
--- OUTSIDE RECORDS SUMMARY | 2022-05-28 05:04 | XMS_ITS | Encounter Summary ---
:1940 Author Organization [place] Address [address] [place] [address] Care Team Providers Name Role Phone Clinic, [facility] Primary Care Provider [phone] Reason for Visit Auth/Cert Specialty Diagnoses / Procedures Referred By Contact Refer red To Contact Surgery Diagnoses ABDOMINAL AORTIC ANEURYSM Sh Periop Services Procedures ENDOVASCULAR REPAIR ANEURYSM ABDOMINAL AORTA [address] [place] [address] Phone: Referral ID Status Reason Start Date Expiration Date Visits Requ ested Visits Authorized [id number] 1 1 Encounter Details Date Type Department Care Team Description 09/28/2018 Anesthesia Event M [facility] Marylou Asher MD [facility] [address] [place] [id number] [facility] Mattie Monahan, COCOA MILL OPERATOR BUCKLE GLUER [address] [place] [address] [id number] [address] [place] [address] Anesthesia Record Procedure Summary Procedure Name Responsible Anesthesia Start Anesthesia Stop Time Anesthesiologist Time BILATERAL FEMORAL Ling Asher MD 09/28/18 1252 09/28/18 1506 CUTDOWN WITH ANGIOGRAM (N/A Abdomen) Events Date Time Event Comment 09/28/2018 1144 1252 An Start 1254 An Start Data 1257 MD Present 1302 An Induction 1304 An Intubation 1334 AN INCISION 1343 MD Present 1417 MD Present 1448 MD Present 1455 AN Extubation 1458 an stop data 1506 An Stop Electronically s igned by Mattie Marmolejo on September 28, 2018 3:06 PM Name Total ePHEDrine 5 mg/mL 15 mg fentaNYL (SUBLIMAZE) injection 100 mcg lidocaine 2% 100 mg propofol (DIPRIVAN) injection 10 mg/mL vial 200 mg propofol infusion (mcg/kg/min) 201.82 mg rocuronium 10mg/mL 50 mg vecuronium 1mg/mL 4 mg dexmedetomidine (PRECEDEX) 4 mcg/mL bolus 28 mcg clindamycin (CLEOCIN) infusion 900 mg 900 mg phenylephrine 0.2 mg/mL (mcg/kg/min) drip 0.21 mg lactated ringers infusion 700 mL LR PIV #2 500 mL Agents Name NO HELIOX O2 N2O Air Exp Sevoflurane Exp Isoflurane Exp Desflurane Exp N2O Ins Sevoflurane Ins Isoflurane Ins Desflurane O2 Auxiliary Blood No blood administrations on file. Lines, Drains, and Airways Type Details Placement Removal Incision/Surgical Site 09/30/12; 1224; Left; 09/30/12 1224 by 1456 by Foot; 09/29/18; 1456 Iwona Ruiz RN Kabwe, Hamabwe, RN Urethral Catheter 05/11/17; 2030; No; 05/11/17 2030 by 09/29/18 1455 by Retention; 16 fr PesaventJoaquina mendoza Ham abwe, Marie, RN RN Peripheral IV 09/28/18; 1200; 16 G; 09/28/18 1200 by 09/29/18 1455 by Left; Hand; [place], Aleja Marquez e, Chlorhexidine; Josseline RN RN Injectable; Tolerated well RETIRED ETT 09/28/18; 1304; Mask 09/28/18 1304 by 09/28/18 1 506 by Ventilation: Easy; Ease aMttie Marmolejo Angela ts, Mattie Farrell, of Intubation: Easy; COCOA MILL OPERATOR BUCKLE GLUER COCOA MILL OPERATOR BUCKLE GLUER Airway Size: 8; Cuffed; Oral; Blade Type: Glidescope; Blade Size: 4; Place by: EA BUCKLE GLUER; Insertion Attempts: 1; Secured at (cm)to lip: 23 cm; Breath Sounds: Equal, clear and bilateral; Dentition: Intact, Unchanged; Grade View of Cords: 1; Airway Adjuncts: Somis scope Urethral Catheter 09/28/18; 1315; No; 09/28/18 1315 by 09/28/18 1449 by Other (Comment) Georgette Umanzor, RN Georgette Umanzor, RN (surgeon ordered for the procedure); 16 fr Left Groin Interventional #1; 09/28/18; 1500 09/28/18 1500 by 0104 by Procedure Access (present prior to Rylee Muñiz, Jeanne heaton, Nurse arrival to PACU); RN 08/09/21; 0104 Right Groin #1; 09/28/18; 1500 09/28/18 1500 by 08/09/21 010 4 by Interventional Procedure (present prior to Rylee Muñiz, Inpatient, Nurse Access arrival to pac u); RN 08/09/21; 0104 Arterial Line 09/28/18; 1511 (created 09/28/18 1511 by 8 [id number] by via procedure Ling Asher Harder, Andri a documentation); MD Owen, RN Chlorhexidine; Ling Asher MD; 09/28/18; 1641 documented in this encounter Social History Tobacco [...] on file documented as of this encounter OR Notes Anesthesia Postprocedure Evaluation - Ling Asher MD - 09/28/2018 3:11 PM CST Patient: Speedy Hendricks Procedure(s): BILATERAL FEMORAL CUTDOWN WITH ANGIOGRAM Diagnosis:ABDOMINAL AORTIC ANEURYSM Diagnosis Additional Information: No value filed. Anesthesia Type: General Note: Anesthesia Post Evaluation Patient location during evaluation: PACU Patient participation: Able to fully participate in evaluation Level of consciousness: awake and alert Pain management: adequate Airway patency: patent Cardiovascular status: acceptable Respiratory status: acceptable and unassisted Hydration status: acceptable PONV: none Last vitals: Vitals: 09/28/18 1121 BP: (!) 148/100 Pulse: 60 Resp: 14 Temp: 36.3 ??C (97.4 ??F) SpO2: 98% Electronically Signed By: Ling Asher MD September 28, 2018 3:11 PM BUILDER OPERATOR Anesthesia Procedure Notes - Ling Asher MD - 09/28/2018 3:10 PM TIRE BUILDER OPERATOR Associated Order(s): A Line Catheter Placement ARTERIAL LINE PROCEDURE NOTE: Pre-Procedure Performed by Ling Asher MD Location: pre-op Pre-Anesthestic Checklist: patient identified, IV checked, risks and benefits discussed, informed consent, monitors and equipment checked and pre-op evaluation Timeout Correct Patient: Yes Correct Procedure: Yes Correct Site: Yes Correct Position: Yes . Procedure Documentation Procedure: arterial line ASA 3 Supine Insertion Site:radial, left.Skin infiltrated with 1 mL of 1% lidocaine. Injection technique: Seldinger Technique and Adam's test completed . . Patient Prep;all elements of maximal sterile barrier technique followed, mask, hat, sterile gown, sterile gloves, draped, hand hygiene, chlorhexidine gluconate and isopropyl alcohol Assessment/Narrative Catheter: 20 gauge, 12 cm Secured by other Tegaderm dressing used. Arterial waveform: Yes IBP within 10% of NIBP: Yes BUILDER OPERATOR Anesthesia Preprocedure Evaluation - Ling Asher MD - 09/28/2018 10:20 AM CST Anesthesia Pre-Procedure Evaluation Patient: Speedy Hendricks : 1940 Preoperative Diagnosis: ABDOMINAL AORTIC ANEURYSM Procedure(s): ENDOVASCULAR ABDOMINAL AORTA ANEURYSM REPAIR (GRAFT TBD) Past Medical History: Diagnosis Date ??? AAA (abdominal aortic aneurysm) (H) ??? AAA (abdominal aortic aneurysm) (H) ??? ACP (advance care planning) ??? Antiplatelet or antithrombotic long-term use eliquis ??? Arrhythmia afib ??? Arthritis neck ??? Atrial tachycardia (H) 04/2017 nonsustained ??? Basal cell carcinoma ??? 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 Cerebral infarction (H) ??? 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 Chronic pain lumbar back ??? CKD (chronic kidney disease) stage 3 ??? Hyperlipidemia ??? Hypertension ??? Hypertriglyceridemia ??? MRSA (methicillin resistant staph aureus) culture positive ??? Opioid overdose (H) 04/2017 ??? JACKSON (obstructive sleep apnea) ??? Prediabetes ??? Transient cerebral ischemia Past Surgical History: Procedure Laterality Date ??? APPENDECTOMY ??? BACK SURGERY lumbar fusion x2 ??? COLONOSCOPY ??? ENT SURGERY tonsils ??? EXCISE TOENAIL(S) 09/30/2012 Procedure: EXCISE TOENAIL(S);; Surgeon: Sal Chaparro DPM; Location: [facility] OR ? ? HEAD & NECK SURGERY cervical fusion ??? ORTHOPEDIC SURGERY left foot surg ??? ORTHOPEDIC SURGERY cervical fusion x2 ??? REMOVE HARDWARE FOOT 09/30/2012 Procedure: REMOVE HARDWARE FOOT; hardware removel left foot; Surgeon: Sal Chaparro DPM; Location: [facility] OR ??? THORACIC SURGERY left lung surg decortifcation ??? wisdom teeth[ Anesthesia Evaluation . Pt has had prior anesthetic. No history of anesthetic complications ROS/MED HX ENT/Pulmonary: (+)sleep apnea, tobacco use, Past use doesn't use CPAP , . . Neurologic: (+)TIA Cardiovascular: Comment: AAA (+) Dyslipidemia, hypertension-Peripheral Vascular Disease-- Other, --. Taking blood thinners Pt hasreceived instructions: . . . :. dysrhythmias a-fib, . Previous cardiac testing Echodate:results:Interpretation Summary ?? A cardiac source of embolus was not identified. A contrast injection (Bubble Study) was performed that was negative for flow across the interatrial septum. Left ventricular systolic function is normal. The visual ejection fraction is estimated at 55-60%. The left ventricle is normal in size. There is trace to mild mitral regurgitation. Sinus rhythm was noted.date: results: date: results: date: results: METS/Exercise Tolerance: Hematologic: Musculoskeletal: GI/Hepatic: (-) GERD Renal/Genitourinary: (+) chronic renal disease, type: CRI, Endo: (-) Type II DM Psychiatric: Infectious Disease: Malignancy: Other: Physical Exam Normal systems: pulmonary and dental Airway Mallampati: II TM distance: >3 FB Neck ROM: full Dental Cardiovascular Rhythm and rate: regular Pulmonary Lab Results Component Value Date WBC 6.1 11/14/2017 HGB 13.7 11/14/2017 HCT 41.0 11/14/2017 PLT 122 (L) 11/14/2017 NA 141 11/15/2017 POTASSIUM 4.1 11/15/2017 CHLORIDE 109 11/15/2017 CO2 25 11/15/2017 BUN 33 (H) 11/15/2017 CR 1.51 (H) 11/15/2017 GLC 105 (H) 11/15/2017 BALDEMAR 8.8 11/15/2017 PHOS 3.3 05/07/2017 MAG 2.3 05/07/2017 ALBUMIN 2.6 (L) 05/07/2017 PROTTOTAL 6.2 (L) 05/07/2017 ALT 34 05/07/2017 AST 46 (H) 05/07/2017 ALKPHOS 156 (H) 05/07/2017 BILITOTAL 0.5 05/07/2017 PTT 30 11/14/2017 INR 0.96 11/14/2017 Preop Vitals BP Readings from Last 3 Encounters: 07/01/18 128/70 06/03/18 120/64 11/15/17 157/73 Pulse Readings from Last 3 Encounters: 07/01/18 (!) 48 06/03/18 52 11/14/17 54 Resp Readings from Last 3 Encounters: 07/01/18 16 06/03/18 16 11/15/17 18 SpO2 Readings from Last 3 Encounters: 07/01/18 97% 06/03/18 99% 11/15/17 97% Temp Readings from Last 1 Encounters: 11/15/17 35.8 ??C (96.5 ??F) (Oral) Ht Readings from Last 1 Encounters: 07/01/18 1.778 m (5' 10) Wt Readings from Last 1 Encounters: 07/01/18 86.2 kg (190 lb) Estimated body mass index is 27.26 kg/m?? as calculated from the following: Height as of 07/01/18: 1.778 m (5' 10). Weight as of 07/01/18: 86.2 kg (190 lb). Anesthesia Plan History & Physical Review History and physical reviewed and following examination; no interval change. ASA Status: 3 . Plan for General and ETT with Intravenous and Propofol induction. Maintenance will be Balanced. PONV prophylaxis: Ondansetron (or other 5HT-3) Additional equipment: 2nd IV and Arterial Line Postoperative Care Postoperative pain management: IV analgesics. Consents Anesthetic plan, risks, benefits and alternatives discussed with: Patient.. Ling Asher MD BUILDER OPERATOR documented in this encounter Miscellaneous Notes Anesthesia Care Transfer Note - Mattie Marmolejo APRN CRNA - 09/28/2018 3:06 PM CST Patient: Speedy Hendricks Procedure(s): BILATERAL FEMORAL CUTDOWN WITH ANGIOGRAM Diagnosis: ABDOMINAL AORTIC ANEURYSM Diagnosis Additional Information: No value filed. Anesthesia Type: General Note: Airway :Face Mask Patient transferred to:PACU Comments: VSSHandoff Report: Identifed the Patient, Identified the Reponsible Provider, Reviewed thepertinent medical history, Discussed the surgical course, Reviewed Intra-OP anesthesia mangement andissues during anesthesia, Set expectations for post-procedure period and Allowed opportunity for questions and acknowledgement of understanding Vitals: (Last set prior to Anesthesia Care Transfer) ROMIE VITALS 09/28/2018 1428 - 09/28/2018 1506 09/28/2018 Resp Rate (set): 10 Electronically Signed By: Mattie Marmolejo APRN CRNA September 28, 2018 3:06 PM BUILDER OPERATOR documented in this encounter Plan of Treatment Not on filedocumented as of this encounter Procedures Procedure Name Priority Date/Time Associated Diagnosis Comme nts ANE A LINE CATHETER Routine 09/28/2018 3:10 PM TIRE BUILDER OPERATOR PLACEMENT Procedure Note - Ritu Asher MD - 09/28/2018 3:10 PM CSTThis note is in progress. Formatting of this note migh t be different from the original. ARTERIAL LINE PROCEDURE NOTE : Pre-Procedure Performed by Delaney Asher MD Location: pre-op Pre-Anesthestic Checklist: p atient identified, IV checked, risks and benefits discussed, informed consent, monitors and equipment checked and pre-op evaluation Timeout Correct Patient: Yes Correct Procedure: Yes Correct Site: Yes Correct Position: Yes . Procedure Documentation Procedure: arterial line ASA 3 Supine Insertion Site:radial, left. Skin infiltrated with 1 mL of 1% lidocaine. Injection technique: Seldinger Technique and Adam's test completed . . Patient Prep;all elements of maximal sterile barrier technique followed, mask, hat, sterile gown, stevenson rile gloves, draped, hand hygiene, chlorhexidine gluconate and isopropyl alcohol Assessment/Narrative Catheter: 20 gauge, 12 cm Secured by other Tegaderm dressing used. Arterial waveform: Yes IBP w ithin 10% of NIBP: Yes documented in this encounter Visit Diagnoses Not on filedocumented in this encounter Administered Medications Inactive Administered Medications - up to 3 most recent administrations Medication Order MAR Action Action Date Dose Rate Site clindamycin (CLEOCIN) infusion 900 Given 09/28/2018 1:18 PM TIRE BUILDER OPERATOR 900 mg mg Routine, 900 mg, Intravenous, PRE-OP/PRE-PROCEDURE, Starting on Thu09/28/18 at 1101, For 1 dose, Give first dose within 1 hour PRIOR to incision., Indications: Perioperative Pharmacoprophylaxis, Pre-procedure dexmedetomidine (PRECEDEX) 4 mcg/mL bolu s Bolus 09/28/2018 2:19 PM TIRE BUILDER OPERATOR 8 mcg CONTINUOUS PRN, Starting on Thu09/28/18 at 1216, Anesthesia Intra-op Bolus 09/28/2018 1:12 PM TIRE BUILDER OPERATOR 12 mcg Bolus 09/28/2018 1:02 PM TIRE BUILDER OPERATOR 8 mcg ePHEDrine injection Given 09/28/2018 1:57 PM TIRE BUILDER OPERATOR 5 mg PRN, Starting on Thu09/28/18 at 1345, Anesthesia Intra-op Given 09/28/2018 1:49 PM TIRE BUILDER OPERATOR 5 mg Given 09/28/2018 1:45 PM TIRE BUILDER OPERATOR 5 mg fentaNYL (PF) (SUBLIMAZE) injection Given 09/28/2018 1:34 PM TIRE BUILDER OPERATOR 50 mcg PRN, Administer over 3-5 Minutes, Starting on Thu09/28/18 at 1302, Anesthesia Intra-op Given 09/28/2018 1:02 PM TIRE BUILDER OPERATOR 50 mcg lactated ringers infusion New Bag 09/28/2018 1:11 PM TIRE BUILDER OPERATOR CONTINUOUS PRN, Anesthesia Intra-op, Starting on Thu09/28/18 at 1311, Until Thu09/28/18 at 1506 lidocaine 2% injection (MDV) Given 09/28/2018 1:02 PM TIRE BUILDER OPERATOR 100 mg PRN, Starting on Thu09/28/18 at 1302, Anesthesia Intra-op phenylephrine 0.2 mg/mL Rate/Dose Change 09/28/2018 2:17 0.1 mcg/kg /min 2.54 mL/hr (mcg/kg/min) drip PM TIRE BUILDER OPERATOR CONTINUOUS PRN, Starting on Thu09/28/18 at 1406, Anesthesia Intra-op Rate/Dose Change 09/28/2018 2:12 PM TIRE BUILDER OPERATOR 0.15 mcg/kg/min 3.82 mL/hr New Bag 09/28/2018 2:06 PM TIRE BUILDER OPERATOR 0.25 mcg/kg/min 6.36 mL/hr propofol (DIPRIVAN) infusion New Bag 09/28/2018 1:11 PM 35 mcg/kg/min 17.8 mL/hr Intravenous, CONTINUOUS PRN, TIRE BUILDER OPERATOR Starting on Thu09/28/18 at 1311, Anesthesia Intra-op propofol (DIPRIVAN) injection 10 mg/mL v ial Given 09/28/2018 1:02 PM TIRE BUILDER OPERATOR 200 mg PRN, Starting on Thu09/28/18 at 1302, Anesthesia Intra-op rocuronium (ZEMURON) injection Given 09/28/2018 1:02 PM TIRE BUILDER OPERATOR 50 mg PRN, Starting on Thu09/28/18 at 1302, Anesthesia Intra-op vecuronium (NORCURON) injection Given 09/28/2018 2:17 PM TIRE BUILDER OPERATOR 2 mg PRN, Starting on Thu09/28/18 at 1334, Anesthesia Intra-op Given 09/28/2018 1:34 PM TIRE BUILDER OPERATOR 2 mg documented in this encounter Care Teams Data Processing Manager Relationship Specialty Start Date End Date Clinic, [facility] PCP - General 05/12/17 [address] [phone] documented as of this encounter
--- OUTSIDE RECORDS SUMMARY | 2022-05-28 05:04 | XMS_ITS | Encounter Summary ---
:1940 Author Organization [place] Address [address] [facility] [place] [address] Care Team Providers Name Role Phone Clinic, [facility] Primary Care Provider [phone] Reason for Visit Reason Onset Date Comments Medication Question 05/24/2018 Encounter Details Date Type Department Care Team Description 05/24/2018 Telephone [facility] Juan Lewis on Question Vascular Clinic Félix Nava MD [address] [place] [phone] [address] [place] [address] (Wo rk) Social History Tobacco Use Types Packs/Day Years Used Date Former Smoker Smokeless Tobacco: Never Used Comments: quit 1985 [...] Telephone Encounter - Sondra Johnson RN - 05/25/2018 11:46 AM CDT Attempted to contact pt's daughter, Raquel. Unable to speak with her. Pt's AAA measures 4.4cm X 4.6cm per AAA US. LVM stating based upon the size of the aneurysm, at this time a CTA would not be necessary prior to pt's appointment, but this would be discussed further at the appointment with Dr. Lewis. Provided direct phone number should any further questions arise. SHASTA Winkler, RN Telephone Encounter - Serena Almaguer MA - 05/24/2018 3:37 PM CDT Reason for call: Symptom Symptom or request: Patient daughter is wondering if her dad would need a CTA before he see Dr. Lewis on Jun 03? US done 05/17/18 located in care everywhere. Duration (how long have symptoms been present): 55 yrs Have you been treated for this before? Yes Additional comments: Please call Raquel his daughter [phone] Phone number to reach patient: Home number on file [phone] (home) Best Time: anytime Can we leave a detailed message on this number? YES Serena Almaguer MA documented in this encounter Plan of Treatment Not on filedocumented as of this encounter Visit Diagnoses Not on filedocumented in this encounter Care Teams Timekeeping Supervisor Relationship Specialty Start Date End Date Clinic, [facility] PCP - General 05/12/[address] [place] [phone] documented as of this encounter
--- OUTSIDE RECORDS SUMMARY | 2022-05-28 05:04 | XMS_ITS | Encounter Summary ---
:1940 Author Organization [place] Address [address] [place] [address] Care Team Providers Name Role Phone [facility] Primary Care Provider [phone] Encounter Details Date Type Department Care Team Description 09/28/2018 Travel Social History Tobacco Use Types Packs/Day [...] on filedocumented in this encounter Care Teams Terminal Worker Relationship Specialty Start [facility] [place] [phone] documented as of this encounter
--- OUTSIDE RECORDS SUMMARY | 2022-05-28 05:04 | XMS_ITS | Encounter Summary ---
:1940 Author Organization [place] Address [address] [place] [address] Care Team Providers Name Role Phone Clinic, [facility] Primary Care Provider [phone] Reason for Referral - Closed Specialty Diagnoses / Procedures Referred By Contact Refer red To Contact Diagnoses Paroxysmal atrial fibrillation (H) Taran Lugo MD Procedures Zio Patch Monitor [address] [place] [address] Referral ID Status Reason Start Date Expiration Date Visits Requ ested Visits Authorized [id number] Closed 11/25/2017 11/25/2018 1 1 NCIAL ENGINEER Reason for Visit (Routine) - Closed Specialty Diagnoses / Procedures Referred By Contact Refer red To Contact Cardiology Procedures Zzrh Cardiac Test Rscc ZIOPATCH MONITOR [address] [place], [place] [address] Phone: Fax: Referral ID Status Reason Start Date Expiration Date Visits Requ ested Visits Authorized [id number] Closed 11/17/2017 11/17/2018 1 1 Encounter Details Date Type Department Care Team Description 11/17/2017 Hospital Encounter [facility] Taran Lugo [facility] MD fibrillation (H) [address] [facility] [address] [place] [phone] Social History Tobacco Use Types Packs/Day Years Used Date Former Smoker Smokeless Tobacco: Never Used Comments: quit 1984 [...] mg) by mouth daily tabletIndications: Uncontrolled hypertension documented as of this encounter Progress Notes Jaqui Snow - 11/17/2017 11:59 PM CST Received a call from hospital nurse and [employer] stating that this patient's monitor fell off after 4days which [employer] did instruct him to mail in the monitor. Per EPIC and pt, pt's daughter called [facility]'s nurse and they are aware of the situation. I called pt back and he did mail the monitor yesterday. We will see what shows up and see if Brittney would like him to redo the monitor or keep what he gets from the one mailed back. NCIAL ENGINEER Kiarra Rubalcava - 11/17/2017 3:49 PM CST Ziopatch heart monitor was set up. Patient stated that Dr. Quintanilla ordered the event monitor but Dr. Lugo wanted him to wear a ziopatch for 14 days. Patient was then set up with a ziopatch. NCIAL ENGINEER documented in this encounter Plan of Treatment Not on filedocumented as of this encounter Procedures Procedure Name Priority Date/Time Associated Diagnosis Comme nts ZIO PATCH HOLTER Routine 11/22/2017 Paroxysmal atrial Result s for this fibrillation (H) procedure a re in the results section . documented in this encounter Results Zio Patch Monitor (11/22/2017) Narrative RADIANT - 11/22/[address] [facility] [id number] [place] [phone] 11/17/2017 Patient: ??Speedy Burris Custer Chart: [id number] : ??1940 Age: ??77 year old Sex: ??male Procedure: ??ZioPatch Monitor. [facility] Pricing Consultant performing hook-up: ??Kiarra Rubalcava Taran Gamboa MD [facility] ORDERABL ES Performing Organization Address City/State/ZIP Code Phon e Number RADIANT documented in this encounter Visit Diagnoses Diagnosis Paroxysmal atrial fibrillation (H) Atrial fibrillation documented in this encounter Care Teams Screw Machine Set Up Operator Relationship Specialty Start Date End Date [facility], [facility] PCP - General 05/12/[address] [place], [place] [phone] documented as of this encounter
--- OUTSIDE RECORDS SUMMARY | 2022-05-28 05:04 | XMS_ITS | Encounter Summary ---
:1940 Author Organization [place] Address [facility] [place] [address] Care Team Providers Name Role Phone [facility], [facility] Primary Care Provider [phone] Encounter Details Date Type Department Care Team Description 10/21/2018 Telephone [facility] Sophie piper, Juan Nava MD Clinic Tram [address] [place] [address] [place] [address] [phone] Social History Tobacco Use Types Packs/Day Years [...] this encounter Miscellaneous Notes Telephone Encounter - Aruna Simmnos Ann - 10/28/2018 1:02 PM CST Type of surgery: *OR51*DR. VÁSQUEZ/DR. GARVIN*THORACIC ENDOVASCULAR ANEURYSM REPAIR WITH MEDTRONIC GRAFT Location of surgery: [facility] Date and time of surgery: 11/05/18 @ 8:30AM Surgeon: DR. VÁSQUEZ AND DR. GARVIN Pre-Op Appt Date: PT TO SCHEDULE AT [facility] Post-Op Appt Date: PT TO SCHEDULE Packet sent out: MAILED 10/25/18 Pre-cert/Authorization completed: Yes Date: 10/28/18 I have notified IR, ICU and anesthesia about this case. I have verified that anesthesia agrees with 3 day Eliquis hold because pt will need spinal drain. Aruna Simmons, Report Writer ATION CHECKER Telephone Encounter - Aruna Simmons - 10/25/2018 4:25 PM CST Spoke with daughter, Raquel, and she will have her dad come on 11/03/18 @ 9:00 to the [facility] lab for type and screen. I called the lab to make the appt for them. Aruna Simmons, Report Writer ATION CHECKER Telephone Encounter - Sondra Johnson RN - 10/22/2018 12:50 PM CST RN called [facility] Blood Bank and informed them of pt's upcoming surgery and request for 2 units of packed RBCs are available. Discussed with Blood Bank pt has RBC antibodies. Per Pam in blood bank, pt needs to have a type and screen drawn here at [facility] 48 hours prior to procedure. Pam stated pt could makea lab appointment on 11/03/18 or morning of 11/04/18. Pt's lab from 09/28/18 cannot be used as reference. Order entered for ABO/type and screen. Will route back to surgery scheduling. SHASTA Winkler, RN ATION CHECKER Telephone Encounter - Aruna Simmons - 10/21/2018 9:50 PM CST Spoke with daughter, Raquel, in regards to Edward's upcoming surgery. Raquel asked if her dad needs to bank blood prior because he has a rare antibody and it is really hard to find a match. In looking at the allergies tab, there is a blood transfusion warning that states Patient has a history of a clinically significant antibody against RBC antigens. ??A delay in compatible RBCs may occur.. I will route to Dr. Vásquez's nurse to work with the blood bank prior to the upcoming surgery. Aruna Simmons, Report Writer ATION CHECKER documented in this encounter Plan of Treatment Not on filedocumented as of this encounter Results (ABNORMAL) ABO/Rh type and screen (11/03/2018 9:10 AM QUOTATION CHECKER) [facility] Method Time Signature Units Ordered 4 11/05/2018 [place] 1:30 PM [facility] ABO O 11/03/2018 [place] 10:15 AM [facility] RH(D) Pos [facility] Antibody Pos (A) 11/03/2018 [place] Screen 10:15 AM [facility] Test Valid [place] 11/03/2018 [place] Only At [facility] 9:31 AM [facility] Specimen 11/06/2018 11/03/2018 [place] Expires 9:31 AM [facility] Crossmatch Red Blood 11/03/2018 [place] Cells 9:31 AM [facility] Specimen Anatomical Collection Method Collection Time Receive d Time (Source) Location / / Volume Laterality Blood specimen 11/03/2018 9:10 AM 019 9:19 (specimen) QUOTATION CHECKER AM QUOTATION CHECKER Juan Vásquez MD LAB - BLOOD BANK TEST ORDER Performing Organization Address City/State/ZIP Code Phon e Number [facility] [address] [address] [facility] [address] [address], [facility] [phone] documented in this encounter Visit Diagnoses Diagnosis Abdominal aortic aneurysm (AAA) without rupture (H) - Primary Encounter for pre-operative laboratory t esting Preoperative examination, unspecified documented in this encounter Additional Health Concerns Infection Onset Date Last Indicated Resolved Time MRSAComment: Positive 02/17/11 and 09/22/12 11/05/2018 019 Negatives 05/03/14 (HE), 12/01/14 (HE) documented as of this encounter Care Teams Engineering Intern Relationship Specialty Start Date End Date [facility], [facility] PCP - General 05/12/17 [address] [place] [address] documented as of this encounter
--- OUTSIDE RECORDS SUMMARY | 2022-05-28 05:04 | XMS_ITS | Encounter Summary ---
:1940 Author Organization [place] Address [address] [facility] [place] [address] Care Team Providers Name Role Phone [facility], [facility] Primary Care Provider [phone] Reason for Referral Diagnostic Imaging CT Scan - Closed Specialty Diagnoses / Procedures Referred By Contact Refer red To Contact Diagnoses Abdominal aortic aneurysm (H) Juan Lewis MD Procedures CTA Abdomen Pelvis with Contrast [address] [place] [address] Referral ID Status Reason Start Date Expiration Date Visits Requ ested Visits Authorized [id number] Closed 06/03/2018 06/03/2019 1 1 Encounter Details Date Type Department Care Team Description 06/03/2018 Orders Only [facility] Juan Lewis Abdompepe l aortic Vascular Clinic Félix Nava MD aneurysm (H) (Primary [address] ) [address] [place] [address] [place] [id number] Social History Tobacco Use Types Packs/Day Years [...] filedocumented as of this encounter Results CTA Abdomen Pelvis with Contrast (06/07/2018 4:54 PM CDT) Anatomical Region Laterality Modality Abdomen/Pelvis, SUBRAD IR PROCEDURE, UMP CT CTA, RAD Computed Tomography CT Specimen (Source) Anatomical Location Collection Method / Collectio n Time Received Time / Laterality Volume Impressions 06/10/2018 7:43 AM CDT IMPRESSION: ??4.6 cm infrarenal abdominal aortic aneurysm. Given current anatomy, this would be amenable to endovascular repair. DARYL DINH MD Narrative 06/10/2018 7:43 AM CDT CTA ABDOMEN PELVIS WITH CONTRAST at 06/07/2018 4:54 PM HISTORY: ; Abdominal aortic aneurysm (H) COMPARISON: ?None. TECHNIQUE: ??Helical scans through the a bdomen and pelvis were obtained before the administration of intravenous contrast media and following the injection of 60 mL of contrast in ar terial phase. Source images were reviewed as well as 3D and multi-pl apryl reconstructions. FINDINGS: ?There is an infrarenal ab dominal aortic aneurysm. Specific measurements of the aneurysm ar e as follows: Maximum diameter of the aneurysm: 4.6 cm Maximum diameter just below the lowest r enal artery: 29 mm Maximum diameter 10 mm below the lowest renal artery: 28 mm Maximum diameter 15 mm below the lowest renal artery: 29 mm Length of the neck of the aneurysm: 2 cm Maximum diameter of the right common lenard ac artery: 21 mm Minimum diameter of the right external i liac artery: 10 mm Minimum diameter of the right common fem oral artery: 9 mm, posterior medial calcified plaque Maximum diameter of the left common porsche c artery: Focal ectasia of 15 mm at the mid aspect. 11 mm proximally a nd distally. Minimum diameter of the left external il iac artery: 10 mm. Minimum diameter of the left common femo ral artery: 10 mm, moderate posterior and medial calcified plaque. Visceral arteries: Patent without defini te significant stenosis. Solid organs in the abdomen: Grossly unr emarkable. There are some cysts in the left kidney. There is corti hannah thinning and scarring in the kidneys. Bowel: Scattered colonic diverticuli. Lung bases: Clear. Bones: Degenerative changes and posterio r fusion apparatus in the lumbar spine. Procedure Note Daryl Dinh MD - 06/10/2018F ormatting of this note might be different from the original. CTA ABDOMEN PELVIS WITH CONTRAST at 06/07 4:54 PM HISTORY: ; Abdominal aortic aneurysm (H) COMPARISON: None. TECHNIQUE: Helical scans through the abd omen and pelvis were obtained before the administration of intravenous contrast media and following the injection of 60 mL of contrast in ar terial phase. Source images were reviewed as well as 3D and multi-pl apryl reconstructions. FINDINGS: There is an infrarenal abdomin al aortic aneurysm. Specific measurements of the aneurysm ar e as follows: Maximum diameter of the aneurysm: 4.6 cm Maximum diameter just below the lowest r enal artery: 29 mm Maximum diameter 10 mm below the lowest renal artery: 28 mm Maximum diameter 15 mm below the lowest renal artery: 29 mm Length of the neck of the aneurysm: 2 cm Maximum diameter of the right common lenard ac artery: 21 mm Minimum diameter of the right external i liac artery: 10 mm Minimum diameter of the right common fem oral artery: 9 mm, posterior medial calcified plaque Maximum diameter of the left common porsche c artery: Focal ectasia of 15 mm at the mid aspect. 11 mm proximally a nd distally. Minimum diameter of the left external il iac artery: 10 mm. Minimum diameter of the left common femo ral artery: 10 mm, moderate posterior and medial calcified plaque. Visceral arteries: Patent without defini te significant stenosis. Solid organs in the abdomen: Grossly unr emarkable. There are some cysts in the left kidney. There is corti hannah thinning and scarring in the kidneys. Bowel: Scattered colonic diverticuli. Lung bases: Clear. Bones: Degenerative changes and posterio r fusion apparatus in the lumbar spine. IMPRESSION: 4.6 cm infrarenal abdominal aortic aneurysm. Given current anatomy, this would be amenable to endovascular repair. DARYL DINH MD Juan Lewis MD IMG CT ORDERABLES documented in this encounter Visit Diagnoses Diagnosis Abdominal aortic aneurysm (H) - Primary Abdominal aneurysm without mention of ru pture Abdominal aortic aneurysm (H) Abdominal aneurysm without mention of ru pture documented in this encounter Care Teams Reclaimer Relationship Specialty Start Date End Date Bandar, Kehinde Portillofield PCP - General 05/12/[address] [place] [id number] documented as of this encounter
--- OUTSIDE RECORDS SUMMARY | 2022-05-28 05:04 | XMS_ITS | Encounter Summary ---
:1940 Author Organization [place] Address [address] [place] [address] Care Team Providers Name Role Phone Clinic, [facility] Primary Care Provider [phone] Reason for Referral Diagnostic Imaging CT Scan - Closed Specialty Diagnoses / Procedures Referred By Contact Refer red To Contact Diagnoses Abdominal aortic aneurysm (H) Juan Lewis MD Procedures CTA Abdomen Pelvis with Contrast [address] [place] [address] Referral ID Status Reason Start Date Expiration Date Visits Requ ested Visits Authorized [id number] Closed 06/03/2018 06/03/2019 1 1 Reason for Visit Diagnostic Imaging CT Scan - Closed Specialty Diagnoses / Procedures Referred By Contact Refer red To Contact Diagnoses Abdominal aortic aneurysm (H) Juan Lewsi MD Procedures CTA Abdomen Pelvis with Contrast [address] [place] [address] Referral ID Status Reason Start Date Expiration Date Visits Requ ested Visits Authorized [id number] Closed 06/03/2018 06/03/2019 1 1 Encounter Details Date Type Department Care Team Description 06/07/2018 Hospital Encounter [facility] Juan Lewis Ab dominal aortic [facility] MD Elijah aneurysm (H) [address] [place] [address] [address] [place] [address] [phone] Social History Tobacco Use Types Packs/Day Years [...] Uncontrolled hypertension documented as of this encounter Plan of Treatment Not on filedocumented as of this encounter Procedures Procedure Name Priority Date/Time Associated Comments Diagnosis CTA ABDOMEN PELVIS Routine 06/07/2018 4:54 PM Abdominal aortic Results for this WITH CONTRAST CDT aneurysm (H) procedure are in the results section. ISTAT CREATININE Routine 06/07/2018 4:20 PM Abdominal aortic R esults for this POCT CDT aneurysm (H) procedure are i n the results section. documented in this encounter Results CTA Abdomen Pelvis with [...] MD Juan Lewis MD IMG CT ORDERABLES (ABNORMAL) Creatinine POCT (06/07/2018 4:20 PM CDT) P athologist Signature Creatinine 1.8 (H) 0.66 - 06/07/2018 POINT OF CARE 1.25 mg/dL 4:23 PM CDT TEST, HANDHELD METER GFR Estimate 37 (L) >60 06/07/2018 POINT OF CARE mL/min/1.7 4:23 PM CDT TEST, m2 HANDHELD METER GFR Estimate If 45 (L) >60 06/07/2018 POINT OF CARE Black mL/min/1.7 4:23 PM CDT TEST, m2 HANDHELD METER Specimen Anatomical Collection Method Collection Time Receive d Time (Source) Location / / Volume Laterality 06/07/2018 4:20 PM 8 4:23 CDT PM CDT Juan Lewis MD LAB - BEAKER POCT Performing Organization Address City/State/ZIP Code Phon e Number [facility] POINT OF CARE TEST, HANDHELD METER POINT OF CARE TEST, HANDHELD METER documented in this encounter Visit Diagnoses Diagnosis Abdominal aortic aneurysm (H) Abdominal aneurysm without mention of ru pture documented in this encounter Administered Medications Inactive Administered Medications - up to 3 most recent administrations Medication Order MAR Action Action Date Dose Rate Site 0.9% sodium chloride BOLUS New Bag 06/07/2018 4:38 PM CDT 77 mLs Intravenous, 100 mL, ONCE, On Thu06/07/18 at 1645, For 1 dose iopamidol (ISOVUE-370) solution 500 mL Given 06/07/2018 4:38 PM CDT 60 mLs 500 mL, Intravenous, ONCE, On Thu06/07/18 at 1645, For 1 dose documented in this encounter Care Teams Beater Worker Helper Relationship Specialty Start Date End Date Kehinde Portillo PCP - General 05/12/[address] [place] [id number] documented as of this encounter
--- OUTSIDE RECORDS SUMMARY | 2022-05-28 05:04 | XMS_ITS | Encounter Summary ---
:1940 Author Organization [place] Address [facility] [place] [address] Care Team Providers Name Role Phone [facility], [facility] Primary Care Provider [phone] Reason for Visit Reason Comments RECHECK pt would like to discuss Encounter Details Date Type Department Care Team Description 07/01/2018 Office Visit [facility] Juan Lewis aortic Surgery Clinic MD Elijah aneurysm (AAA) without [place] [address] rupture (H) (Primary [address]) [address] [place] [address] [place], [place] [phone] [address] (Work) [phone] Social History Tobacco Use Types Packs/Day Years [...] Sign Reading Time Taken Comments Blood Pressure 128/70 07/01/2018 1:06 PM CDT Pulse 48 07/01/2018 1:06 PM CDT Temperature - - Respiratory Rate 16 07/01/2018 1:06 PM CDT Oxygen Saturation 97% 07/01/2018 1:06 PM CDT Inhaled Oxygen Concentration - - Weight 86.2 kg (190 lb) 07/01/2018 1:06 PM CDT Height 177.8 cm (5' 10) 07/01/2018 1:06 PM CDT Body Mass Index 27.26 07/01/2018 1:06 PM CDT documented in this encounter Progress Notes Juan Lewis MD - 07/01/2018 1:00 PM CDT Reviewed CTA with the patient and his daughter--he is amenable to endovascular repair. Discussed risks goals and alternatives in detail. Answered all questions. He had a brother who from a ruptured AAA and he wishes to have it repaired sooner rather than later. Probably will schedule in September.Face to face time 25 minutes greater than 50% in consultation. documented in this encounter Plan of Treatment Not on filedocumented as of this encounter Visit Diagnoses Diagnosis Abdominal aortic aneurysm (AAA) without rupture (H) - Primary documented in this encounter Care Teams Meter Readers Supervisor Relationship Specialty Start Date End Date [facility] PCP - General 05/12/[address] [place] [address] documented as of this encounter
--- OUTSIDE RECORDS SUMMARY | 2022-05-28 05:04 | XMS_ITS | Encounter Summary ---
:1940 Author Organization [place] Address [facility] [place] [address] Care Team Providers Name Role Phone Clinic, [facility] Primary Care Provider [phone] Encounter Details Date Type Department Care Team Description 07/30/2018 Telephone [facility] Vascular Sophie piper, Juan Nava MD Clinic [place] [address] [place] [address] [place] [address] [phone] Social History Tobacco Use Types Packs/Day Years [...] encounter Miscellaneous Notes Telephone Encounter - Aruna Simmons Ann - 09/14/2018 2:12 PM CST Type of surgery: *OR 51* DR. ALANIZ TO ASSIST WITH ENDOVASCULAR REPAIR OF AAA WITH MEDTRONIC GRAFT Location of surgery: [facility] OR Date and time of surgery: 09/28/18 @ 12:30pm Surgeon: DR. VÁSQUEZ AND DR. ALANIZ Pre-Op Appt Date: PT TO SCHEDULE AT [facility] Post-Op Appt Date: PT TO SCHEDULE Packet sent out: YES ON 09/02/18 Pre-cert/Authorization completed: Yes Date: 09/14/18 OR SPECIALIST Telephone Encounter - Aruna Simmons - 07/30/2018 4:00 PM CDT Daughter Raquel called to schedule her dad's surgery in September. I took note of the dates they would like. I am waiting on the schedule for the Interventional Radiologist that Dr. Vásquez requested. Raquel understands I will follow up with her next week. .Aruna Simmons, Specialty Molder documented in this encounter Plan of Treatment Not on filedocumented as of this encounter Visit Diagnoses Not on filedocumented in this encounter Care Teams Chemical Engineering Technician Relationship Specialty Start Date End Date Clinic, [facility] PCP - General 05/12/[address] [place] [address] documented as of this encounter
--- OUTSIDE RECORDS SUMMARY | 2022-05-28 05:04 | XMS_ITS | Encounter Summary ---
:1940 Author Organization [place] Address [address] [place] [address] Care Team Providers Name Role Phone Clinic, [facility] Primary Care Provider [phone] Reason for Visit Reason Onset Date Comments Run Lead 11/23/2017 Encounter Details Date Type Department Care Team Description 11/23/[address] 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 Eliquis was started by Dr Quintanilla/ Eusebia IT DRESSER Telephone Encounter - Taran Lugo MD - 11/27/2017 9:37 AM CST I was reviewing his head MRI and ECG again. 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 The problem of having a monitor for documentation of AF/AFL again is that the duration of monitor may not be long enough for the occurrence of arrhythmia and moreover, we are still unclear whether AF/AFL is simply a MARKER of increased risk of CVA and not causal effect relationship. In other word, just having AF/AFL in past is a risk marker even if we don't document it again. In light of this I would forego the monitor and have on a blood thinner - I would prefer Eliquis 5 mg bid if affordable and stop asa if he is on one. Thanks, qp IT DRESSER Telephone Encounter - Olive Saldana RN - 11/23/2017 2:47 PM RABBIT DRESSER Call from daughterRaquel. States her dad wore a ZioPatch ordered by Dr Lugo to assess AF burden (ischemic/infarct areas seen in the brains). Daughter states the monitor was worn for 4 days (preferred2 weeks); it fell off she feels d/t the hair on his chest. Will note to Dr Lugo to advise re: havinganother placed. SueLangenbrunnerRN IT DRESSER documented in this encounter Plan of Treatment Not on filedocumented as of this encounter Visit Diagnoses Not on filedocumented in this encounter Care Teams Research And Insights Executive Relationship Specialty Start Date End Date [facility], [facility] PCP - General 05/12/[address] [place] [address] documented as of this encounter
--- OUTSIDE RECORDS SUMMARY | 2022-05-28 05:04 | XMS_ITS | Encounter Summary ---
:1940 Author Organization [place] Address [address] [place] [address] Care Team Providers Name Role Phone Kehinde Portillo Primary Care Provider [phone] Encounter Details Date Type Department Care Team Description 11/03/2018 Travel Social History Tobacco Use Types Packs/Day [...] on filedocumented in this encounter Care Teams Laundry Route Driver Relationship Specialty Start Date [facility] - [facility] 05/12/[address] [place] [id number] documented as of this encounter
--- OUTSIDE RECORDS SUMMARY | 2022-05-28 05:04 | XMS_ITS | Encounter Summary ---
:1940 Author Organization [facility] Address [address] [place] [address] Care Team Providers Name Role Phone Clinic, [facility] Primary Care Provider [phone] Reason for Visit Auth/Cert Specialty Diagnoses / Procedures Referred By Contact Refer red To Contact Surgery Diagnoses ABDOMINAL AORTIC ANEURYSM Periop Services Procedures ENDOVASCULAR REPAIR ANEURYSM ABDOMINAL AORTA [address] [place] [address] Phone: Referral ID Status Reason Start Date Expiration Date Visits Requ ested Visits Authorized [id number] 1 1 Encounter Details Date Type Department Care Team Description 09/28/2018 Surgery [facility] Juan Vásquez FEMORAL [place] PeriOP MD Elijah CUTDOWN WITH ANGIOGRAM Services [address] [place] [address] [place] [address] [phone] Surgery Details Date/Time Status Location OR Service Patient Case Class Case Tr auma Class Type Case? 09/28/18 12:10 Posted OR OR M 51 General Surgery PM Admit Panel 1 Procedure LRB Anes Op Region Wound Class Commen ts BILATERAL FEMORAL CUTDOWN WITH ANGIOGRAM N/A General Abdome n I-Clean Surgeon Surgeon Role Service Panel Juan Vásquez MD Primary General 1 Jacqui Odom MD Interventional Radiolog y 1 Zoltan Crowell MD Assisting Peripheral Vascular 1 documented in this encounter Social History Tobacco [...] Sign Reading Time Taken Comments Blood Pressure 146/79 09/28/2018 3:00 PM GRAVEL TRUCK DRIVER Pulse 60 09/28/2018 11:21 AM GRAVEL TRUCK DRIVER Temperature 36.5 ??C (97.7 ??F) 09/28/2018 3:00 PM GRAVEL TRUCK DRIVER Respiratory Rate 9 09/28/2018 3:50 PM GRAVEL TRUCK DRIVER Oxygen Saturation 94% 09/28/2018 3:50 PM GRAVEL TRUCK DRIVER Inhaled Oxygen Concentration - - Weight 84.8 kg (187 lb) 09/28/2018 11:21 AM GRAVEL TRUCK DRIVER Height 170.2 cm (5' 7) 09/28/2018 11:21 AM GRAVEL TRUCK DRIVER Body Mass Index 29.41 09/28/2018 11:21 AM GRAVEL TRUCK DRIVER documented in this encounter Discharge Summaries Juan [...] MD MT: RIO Name: SPEEDY MCDUFFIE Account: [id number] : 1940 Admit Date: 09/28/2018 Discharge Date: 09/29/2018 Document: [id number] cc: Primary EL TRUCK DRIVER documented in this encounter Medications at Time [...] Levi MD - 09/29/2018 9:32 AM CST [facility] Vascular Medicine Progress Note Date of Service (when I saw the patient): 09/29/2018 Attestation: I have examined the patient independently of Pam Conde PA-C and agree with the examination and [...] Aubrey Vásquez MD Vascular surgery fellow: Zoltan Crowell MD MEDICATIONS: [...] aorta. Exchange was made for a 6 Ugandan vascular sheath. 18-gauge singlewall needle was then advanced into the left common femoral artery through which a 0.035 inch Bentson wire was advanced in the abdominal aorta. Exchange is made for a 6 Ugandan vascular sheath. Via the left groin access, a 5 Ugandan pigtail catheter was advanced over the Bentson wire into the abdominal aorta. Via the right groin, a 5 Ugandan pigtail catheter was advanced over the Bentson [...] concerns during business hours M-F, call the [facility] at [phone] to have the rounding/station agent Vascular Medicine (NOT VASCULAR SURGERY) paged. - After business hours M-F,??for medical concerns on this patient, please page hospitalist staff. - For vascular surgical questions, please page the appropriate surgeon (primary vascular surgeon or station agent vascular surgeon) based upon the time of day. Lambert Fontanez PA-C Zoltan Londono MD - 09/29/2018 8:19 AM CST [facility] Vascular Surgery Progress Note Assessment & Plan Procedure(s): BILATERAL FEMORAL CUTDOWN WITH ANGIOGRAM -1 Day Post-Op 78 y/o male s/p bilateral femoral cut-down and thorac-abdominal aortogram. --Will obtain CTA chest this morning to assess the thoracic aneursym --Will continue with regular diet --Can be OOB and ambulate Active Problems: AAA (abdominal aortic aneurysm) (H) Min Ashanti Crowell MD Interval History No acute events [...] concerns during business hours M-F, call the [facility] at [phone] to have the rounding/station agent Vascular Medicine (NOT VASCULAR SURGERY) MD paged. - After business hours M-,??for medical concerns on this patient, please page hospitalist staff. - For vascular surgical questions, please page the appropriate surgeon (primary vascular surgeon or station agent vascular surgeon) based upon the time of day. Brandie Barrera PA-C Michelle Jones - 09/28/2018 10:42 AM CST Admission medication history interview status for the 09/28/2018 admission is complete. See [facility] admission navigator for prior to admission medications Medication history source reliability:Good Medication history interview source(s):Patient Medication history resources (including written lists, pill bottles, clinic record):Patient mailed in his medication list prior to surgery Primary pharmacy.[facility] Additional medication history information not noted on [employer] REPAIR TECHNICIAN med list :None Time spent in this [...] at HS Yes Unknown, Entered By History EL TRUCK DRIVER documented in this encounter Procedure Notes Jacqui [...] for procedural details. Provider name: Jacqui Odom Exhibit Preparator(s):None EL TRUCK DRIVER documented in this encounter Consult Notes Carrie [...] in his throat. PENICILLINS cause a rash. ERICK has an unspecified allergy associated with its use. PREVIOUS MEDICAL HISTORY: 1. Hyperlipidemia. 2. Hypertension. 3. Contact dermatitis. 4. AAA. 5. Colonic polyps. 6. Lumbar spinal stenosis. 7. Impaired fasting glucose. 8. Stage III chronic kidney disease. 9. Paroxysmal atrial fibrillation. PREVIOUS SURGICAL HISTORY: 1. Cervical fusion C7, December 1978. 2. Cervical fusion, Dr. Donahue at [facility] 02/18/2006. 3. Hardware removal and matrixectomy, right great toe, 09/30/2012. 4. Lumbar fusion 10/1996, L5-S1. 5. Lumbar fusion 1999, L4. 6. 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 7. Laparoscopic appendectomy, 01/2009. SOCIAL HISTORY: The patient is . He has 2 children. 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 He quit smoking [id number] after a 1/4 pack per day use [...] MD MT: JACKSON Name: SPEEDY MCDUFFIE Account: [id number] : 1940 Consult Date: 09/28/2018 Document: [id number] EL TRUCK DRIVER documented in this encounter Miscellaneous Notes Op Note - Juan Vásquez MD - 09/29/2018 3:53 PM [...] MD MT: JACKSON Name: SPEEDY MCDUFFIE Account: [id number] : 1940 Procedure Date: 09/28/2018 Document: [id number] EL TRUCK DRIVER Plan of Care - Griselda Dinero RN [...] will continue to follow up with this. EL TRUCK DRIVER Provider Notification - Levi Hollingsworth MD - 09/29/2018 12:46 AM GRAVEL TRUCK DRIVER Brief update: Paged re: request for home melatonin 10 mg melatonin HS PRN added. Levi Hollingsworth MD 12:47 AM EL TRUCK DRIVER Plan of Care - Ira South RN - 09/28/2018 11:11 PM CST A&O, VSS, Lung sounds clear, Bowel sounds active,adeqaute urine output, incision right & letgroin CDI Ambulates assist 1, Regular diet, tolerating liquids with poor appetite. Pain controlled by scheduled tylenol and PRN oxycodone. EL TRUCK DRIVER Plan of Care - Vandana Smith RN - 09/28/2018 7:22 PM CST Pt is came from PACU.Groin site dressing clean dry and intact.Not void yet.Ice pack given.IVF running .will monitor. EL TRUCK DRIVER documented in this encounter Plan of Treatment Not on filedocumented as of this encounter Procedures Procedure Name Priority Date/Time Associated Comments Diagnosis CTA CHEST WITH Routine 09/29/2018 11:38 Results f or this CONTRAST AM GRAVEL TRUCK DRIVER procedure are i n the results section. BASIC METABOLIC PANEL Timed 09/29/2018 10:06 AAA (abdominal Results for this AM GRAVEL TRUCK DRIVER aortic aneurysm) procedure a re in (H) the results section. GLUCOSE BY METER Routine 09/29/2018 6:00 AM AAA (abdominal Res ults for this GRAVEL TRUCK DRIVER aortic aneurysm) procedure a re in (H) the results section. ANGIOGRAM Routine 09/28/2018 2:39 PM GRAVEL TRUCK DRIVER IR ABDOMINAL Routine 09/28/2018 2:17 PM AAA (abdominal Results for this ENDOVASCULAR STENT GRAVEL TRUCK DRIVER aortic aneurysm) proce dure are in GRAFT (H) the results section. EKG 12-LEAD, TRACING STAT 09/28/2018 11:42 Res ults for this ONLY AM GRAVEL TRUCK DRIVER procedure are i n the results section. XR CHEST 1 VIEW STAT 09/28/2018 11:21 Results for this AM GRAVEL TRUCK DRIVER procedure are i n the results section. BLOOD COMPONENT Routine 09/28/2018 11:11 AAA (abdominal Result s for this AM GRAVEL TRUCK DRIVER aortic aneurysm) procedure a re in (H) the results section. BLOOD COMPONENT Routine 09/28/2018 11:11 AAA (abdominal Result s for this AM GRAVEL TRUCK DRIVER aortic aneurysm) procedure a re in (H) the results section. POTASSIUM STAT 09/28/2018 11:11 AAA (abdominal Results f or this AM GRAVEL TRUCK DRIVER aortic aneurysm) procedure a re in (H) the results section. LIPID PROFILE STAT 09/28/2018 11:11 AAA (abdominal Results for this AM GRAVEL TRUCK DRIVER aortic aneurysm) procedure a re in (H) the results section. HEMOGLOBIN A1C STAT 09/28/2018 11:11 AAA (abdominal Results for this AM GRAVEL TRUCK DRIVER aortic aneurysm) procedure a re in (H) the results section. CREATININE STAT 09/28/2018 11:11 AAA (abdominal Results f or this AM GRAVEL TRUCK DRIVER aortic aneurysm) procedure a re in (H) the results section. ABO/RH TYPE AND STAT 09/28/2018 11:11 AAA (abdominal Result s for this SCREEN AM GRAVEL TRUCK DRIVER aortic aneurysm) procedure a re in (H) the results section. LAB RESULT - HIM SCAN 09/24/2018 12:00 AM GRAVEL TRUCK DRIVER EKG CARDIAC - HIM 09/24/2018 12:00 SCAN AM GRAVEL TRUCK DRIVER documented in this encounter Results CTA Chest with Contrast (09/29/2018 11:38 AM GRAVEL TRUCK DRIVER) Anatomical Region Laterality Modality Chest, SUBRAD IR PROCEDURE, UMP CT CTA, RAD CT Computed Tomography Specimen (Source) Anatomical Location Collection Method / Collectio n Time Received Time / Laterality Volume Impressions 09/29/2018 4:30 PM GRAVEL TRUCK DRIVER IMPRESSION: Tortuous descending thoracic aorta with bilobed aneurysmal dilatation measuring up to 50 mm in diameter in the distal descending aorta. JACQUI ODOM MD Narrative 09/29/2018 4:30 PM GRAVEL TRUCK DRIVER PROCEDURE: CTA of the chest DATE OF [...] ORDERABLES Basic metabolic panel (09/29/2018 10:06 AM GRAVEL TRUCK DRIVER) [facility] Method Time Signature Sodium 141 133 - 144 09/29/2018 [place] mmol/L 10:31 AM GRAVEL TRUCK DRIVER [facility] Potassium 4.5 3.4 - 5.3 09/29/2018 [place] mmol/L 10:31 AM [facility] Chloride 109 94 - 109 09/29/2018 [place] mmol/L 10:31 AM [facility] Carbon Dioxide 25 20 - 32 09/29/2018 [place] mmol/L 10:31 AM [facility] Anion Gap 7 3 - 14 09/29/2018 [place] mmol/L 10:31 AM [facility] Glucose 97 70 - 99 09/29/2018 [place] mg/dL 10:31 AM [facility] Urea Nitrogen 18 7 - 30 09/29/2018 [place] mg/dL 10:31 AM [facility] Creatinine 1.25 0.66 - 09/29/2018 [place] 1.25 10:31 AM [facility] GFR Estimate Not Calculated >60 09/29/2018 [place] mL/min/1. 10:[address] GFR Estimate Not Calculated >60 09/29/2018 [place] If Black mL/min/1. 10:[address] Calcium 8.8 8.5 - 09/29/2018 [place] 10.1 10:[address] [facility] mg/dL [facility] Specimen Anatomical Collection Method Collection Time Receive d Time (Source) Location / / Volume Laterality Blood specimen 09/29/2018 10:06 8 (specimen) AM GRAVEL TRUCK DRIVER 10:07 AM GRAVEL TRUCK DRIVER Pam Conde PA-C LAB - BLOOD ORDERABLES Performing Organization Address City/State/ZIP Code Phon e Number [facility] [address] [address] [facility] [address] [address], [facility] [phone] (ABNORMAL) Glucose by meter (09/29/2018 6:00 AM GRAVEL TRUCK DRIVER) P athologist Signature Glucose 109 (H) 70 - 99 09/29/2018 [facility] mg/dL 6:18 AM GRAVEL TRUCK DRIVER TEST, GLUCOSE Specimen Anatomical Collection Method Collection Time Receive d Time (Source) Location / / Volume Laterality 09/29/2018 6:00 AM 8 6:18 GRAVEL TRUCK DRIVER AM GRAVEL TRUCK DRIVER Juan Vásquez MD LAB - CAROLYN POCT Performing Organization Address City/State/ZIP Code Phon e Number [facility] POINT OF CARE TEST, GLUCOSE POINT OF CARE TEST, GLUCOSE IR Abdominal Endovascular Stent Graft (09/28/2018 2:17 PM GRAVEL TRUCK DRIVER) Anatomical Region Laterality Modality Abdomen/Pelvis Radio Fluoroscopy Specimen (Source) Anatomical Location Collection Method / Collectio n Time Received Time / Laterality Volume Impressions 09/29/2018 8:52 AM GRAVEL TRUCK DRIVER Impression: 1. Thoracic and abdominal angiography de monstrating previously unknown thoracic aortic aneurysm as well as the known abdominal aortic aneurysm 2. Endovascular aneurysm repair was abor clover to allow for further investigation of the thoracic aortic ane urysm and future surgical planning. JACQUI ODOM MD Narrative 09/29/2018 8:52 AM GRAVEL TRUCK DRIVER PROCEDURE(S): 1. Thoracic and abdominal aortic angiogr [...] aneurysm repair. A timeout was performed per [facility] rsal protocol policy to confirm the correct patient, [...] aorta. Exchange was made for a 6 Ugandan vascula r sheath. 18-gauge singlewall needle was then advanced into the left c ommon femoral artery through which a 0.035 inch Bentson wire was adva nced in the abdominal aorta. Exchange is made for a 6 Ugandan vascular sheath. Via the left groin access, a 5 Ugandan pigtail catheter was advanced over the Bentson wire into the abdominal aorta. Via the right groin, a 5 Ugandan pigtail catheter was advanced over the Bentson [...] aneurysm repair. A timeout was performed per [facility] protocol policy to confirm the correct patient, site and pr ocedure to be performed. Please note that due to the complex natu re of the procedure, a multi-disciplinary approach was used [facility] involved Mili Vásquez and Lei functioning as co-surgeons for t his procedure. Bilateral common femoral arteries were s urgically exposed, see separate operative report for details. A n 18-gauge singlewall needle was then inserted into the right common femoral artery through which a 0.035 inch Bentson wire was advanced int o the abdominal aorta. Exchange was made for a 6 Ugandan vascula r sheath. 18-gauge singlewall needle was then advanced into the left c ommon femoral artery through which a 0.035 inch Bentson wire was adva nced in the abdominal aorta. Exchange is made for a 6 Ugandan vascular sheath. Via the left groin access, a 5 Ugandan pigtail catheter was advanced over the Bentson wire into the abdominal aorta. Via the right groin, a 5 Ugandan pigtail catheter was advanced over the Bentson [...] EKG 12-lead, tracing only (09/28/2018 11:42 AM GRAVEL TRUCK DRIVER) [facility] [place] Method Time Signature Interpretation ECG Click View RADIOLOGY Image link RESULTS to view waveform and result Specimen (Source) Anatomical Collection Method Collection Time Re ceived Time Location / / Volume Laterality 09/28/2018 11:42 AM GRAVEL TRUCK DRIVER Juan Vásquez MD ECG ORDERABLES Performing Organization Address City/State/ZIP Code Phon e Number RADIOLOGY RESULTS XR Chest 1 View (09/28/2018 11:21 AM GRAVEL TRUCK DRIVER) Anatomical Region Laterality Modality Chest Digital Radiography Specimen (Source) Anatomical Location Collection Method / Collectio n Time Received Time / Laterality Volume Impressions 09/28/2018 1:09 PM GRAVEL TRUCK DRIVER IMPRESSION: Heart size similar to prior. The thoracic aorta is elongated. No airspace consolidation or pneumothorax. There appears to be a small right pleural effusion. ELAINA HUNTLEY MD Narrative 09/28/2018 1:09 PM GRAVEL TRUCK DRIVER CHEST ONE VIEW ??09/28/2018 11:21 AM HISTORY: [...] ORDER BRAYDEN Blood component (09/28/2018 11:11 AM GRAVEL TRUCK DRIVER) [facility] [place] Method Time Signature Unit Number [id number] 09/28/2018 [facility] 1:21 PM [facility] Blood Red Blood 09/28/2018 [facility] Component Cells 1:21 PM [facility] Reduced Division 00 09/28/2018 [facility] Number 1:21 PM [facility] Status of No longer 10/02/2018 [facility] Unit available 3:00 AM [facility] 10/02/2018 HOSPITAL 0300 Blood Product [id number] 09/28/2018 [facility] Code 1:21 PM GRAVEL TRUCK DRIVER [facility] Unit Status [facility] Specimen Anatomical Collection Method Collection Time Receive d Time (Source) Location / / Volume Laterality 09/28/2018 11:11 09/28/2018 AM GRAVEL TRUCK DRIVER 11:44 AM GRAVEL TRUCK DRIVER Juan Vásquez MD LABORATORY Performing Organization Address City/State/ZIP Code Phon e Number [facility] [address] [place], [place] [address] [facility] [address] [address], [facility] [address] [place], [place] [address], [facility] [phone] Blood component (09/28/2018 11:11 AM GRAVEL TRUCK DRIVER) [facility] gist Method Time Signature Unit Number [id number] 09/28/2018 [facility] 1:21 PM [facility] Blood Red Blood 09/28/2018 [facility] Component Cells 1:21 PM [facility] Reduced Division 00 09/28/2018 [facility] Number 1:21 PM [facility] Status of No longer 10/02/2018 [facility] Unit available 3:00 AM [facility] 10/02/2018 HOSPITAL 0300 Blood Product [id number] 09/28/2018 [facility] Code 1:21 PM [facility] Unit Status [facility] Specimen Anatomical Collection Method Collection Time Receive d Time (Source) Location / / Volume Laterality 09/28/2018 11:11 09/28/2018 AM GRAVEL TRUCK DRIVER 11:44 AM GRAVEL TRUCK DRIVER Juan Vásquez MD LABORATORY Performing Organization Address City/State/ZIP Code Phon e Number [facility] [address] [place], [place] [address] [facility] [address] [address], [facility] [address] [place], [place] [address], [facility] [phone] Potassium (09/28/2018 11:11 AM GRAVEL TRUCK DRIVER) athologist Signature Potassium 4.0 3.4 - 5.3 09/28/2018 [place] mmol/L 12:22 PM [facility] Specimen Anatomical Collection Method Collection Time Receive d Time (Source) Location / / Volume Laterality Blood specimen 09/28/2018 11:11 8 (specimen) AM GRAVEL TRUCK DRIVER 11:43 AM GRAVEL TRUCK DRIVER Ramiro Card MD LAB - BLOOD ORDERABLES Performing Organization Address City/State/ZIP Code Phon e Number [facility] [address] [place] [address] [facility] [address] [place] [address], [place] [phone] Lipid panel (09/28/2018 11:11 AM GRAVEL TRUCK DRIVER) Analysis Performed At Patho logist Time Signature Cholesterol 143 <200 mg/dL 09/28/2018 [place] 12:22 PM [facility] Triglycerides 115 <150 mg/dL 09/28/2018 [facility] 12:24 PM [facility] HDL Cholesterol 68 >39 mg/dL 09/28/2018 [facility] 12:24 PM [facility] LDL Cholesterol 52 <100 mg/dL 09/28/2018 [facility] Calculated 12:24 PM [facility] Comment: Desirable: <100 mg/dl Non HDL Cholesterol 75 <130 mg/dL 09/28/2018 12:24 PM [facility] Specimen Anatomical Collection Method Collection Time Receive d Time (Source) Location / / Volume Laterality Blood specimen 09/28/2018 11:11 8 (specimen) AM GRAVEL TRUCK DRIVER 11:43 AM GRAVEL TRUCK DRIVER Juan Vásquez MD LAB - BLOOD ORDERABLES Performing Organization Address City/State/ZIP Code Phon e Number [facility] [address] [place] [address] [facility] [address] [place] [address], [place] [phone] (ABNORMAL) ABO/Rh type and screen (09/28/2018 11:11 AM GRAVEL TRUCK DRIVER) Component Value Ref Test Analysis Performed At Patholo gist Range Method Time Signature Units Ordered 2 09/28/2018 [facility] 11:54 AM [facility] ABO O 09/28/2018 [facility] 12:28 PM [facility] RH(D) Pos [facility] Antibody Screen Pos (A) 09/28/2018 [facility] 12:28 PM [facility] Test Valid Only [place] 09/28/2018 [facility] At [facility] 11:47 AM [facility] Specimen Expires 10/01/2018 09/28/2018 [facility] 11:47 AM [facility] Crossmatch Red Blood Cells 09/28/2018 [facility] 11:54 AM [facility] Blood Bank Delay in availability of Red Blood Cells called to 09/28/2018 [facility] Comment Esme in Preop at 1228 re 12:37 PM [facility] Antibody ANTI-Rosa 09/28/2018 [facility] Identification 1:26 PM [facility] Antigen Type Rosa Negative 09/28/2018 [facility] 1:26 PM [facility] Specimen Anatomical Collection Method Collection Time Receive d Time (Source) Location / / Volume Laterality Blood specimen 09/28/2018 11:11 8 (specimen) AM GRAVEL TRUCK DRIVER 11:44 AM GRAVEL TRUCK DRIVER Juan Vásquez MD LAB - BLOOD BANK TEST ORDER Performing Organization Address City/State/ZIP Code Phon e Number [facility] [address] [address] [phone] [facility] [address] [address], [facility] [phone] (ABNORMAL) Hemoglobin A1c (09/28/2018 11:11 AM GRAVEL TRUCK DRIVER) P athologist Signature Hemoglobin A1C 5.7 (H) 0 - 5.6 % 09/28/2018 [facility] 12:08 PM [facility] Comment: Normal <5.7% Prediabetes 5.7-6.4% ??Diab etes 6.5% or higher - adopted from ADA consensus guidelines. Specimen Anatomical Collection Method Collection Time Receive d Time (Source) Location / / Volume Laterality Blood specimen 09/28/2018 11:11 8 (specimen) AM GRAVEL TRUCK DRIVER 11:43 AM GRAVEL TRUCK DRIVER Juan Vásquez MD LAB - BLOOD ORDERABLES Performing Organization Address City/State/ZIP Code Phon e Number [facility] [address] [address] [facility] [address] [address], [place] [phone] (ABNORMAL) Creatinine (09/28/2018 11:11 AM GRAVEL TRUCK DRIVER) P athologist Signature Creatinine 1.46 (H) 0.66 - 09/28/2018 [place] 1.25 mg/dL 12:22 PM [facility] GFR Estimate 47 (L) >60 09/28/2018 [place] mL/min/1.7 12:[address] Comment: Non GFR Calc GFR Estimate If 57 (L) >60 mL/min/1.7m2 09/28/2018 12:22 PM [facility] Comment: GFR Calc Specimen Anatomical Collection Method Collection Time Receive d Time (Source) Location / / Volume Laterality Blood specimen 09/28/2018 11:11 8 (specimen) AM GRAVEL TRUCK DRIVER 11:43 AM GRAVEL TRUCK DRIVER Juan Vásquez MD LAB - BLOOD ORDERABLES Performing Organization Address City/State/ZIP Code Phon e Number [facility] [address] [address] [facility] [address] [address], [place] [phone] LAB RESULT - HIM SCAN (09/24/2018 12:00 AM GRAVEL TRUCK DRIVER) Specimen (Source) Anatomical Location Collection Method / Collectio n Time Received Time / Laterality Volume 09/24/2018 Narrative This result has an attachment that is no t available. Provider Outside NON-BEAKER LAB TESTING EKG CARDIAC - HIM SCAN (09/24/2018 12:00 AM GRAVEL TRUCK DRIVER) Specimen (Source) Anatomical Location Collection Method / [...] (TYLENOL) tablet 975 Given 09/29/2018 5:41 AM GRAVEL TRUCK DRIVER 975 mg mg 975 mg, Oral, EVERY 8 HOURS, First dose on Thu09/28/18 at 2200, For 3 days, Do not use if patient has an active opioid/acetaminophen combined analgesic product ordered for pain. Maximum acetaminophen dose from all sources = 75 mg/kg/day not to exceed 4 grams/day., Post-procedure Given 09/28/2018 9:50 PM GRAVEL TRUCK DRIVER 975 mg atorvastatin (LIPITOR) tablet 40 mg Given 09/28/2018 9:50 PM GRAVEL TRUCK DRIVER 40 mg 40 mg, Oral, EVERY EVENING, First dose on Thu09/28/18 at 2000 heparin 10,000 units in 1000 mL 0.9% Given 09/28/2018 1:37 PM CS T 1,000 mLs sodium chloride PRN, Starting on Thu09/28/18 at 1335, Intra-procedure Given 09/28/2018 1:36 PM [employer]IVER 1,000 mLs Given 09/28/2018 1:35 PM [employer] 1,000 mLs lactated ringers infusion New Bag 09/29/2018 2:48 AM G[employer] TR[employer]IVER 125 mL/hr at 125 mL/hr, Intravenous, CONTINUOUS, NOT for patient on renal dialysis. Saline lock after 1 liter if taking PO fluids., Post-procedure, Starting on Thu09/28/18 at 1800, Until Thu09/29/18 at 1753 Rate/Dose Verify 09/29/2018 12:39 AM [employer]IVER 125 mL/hr New Bag 09/28/2018 6:31 PM [employer] 125 mL/hr lisinopril (PRINIVIL/ZESTRIL) tablet 5 m g Given 09/29/2018 8:21 AM [employer] DRIVER 5 mg 5 mg, Oral, 2 TIMES DAILY, First dose on Thu09/28/18 at 2100 Given 09/28/2018 9:52 PM [employer]IVER 5 mg melatonin tablet 10 mg Given 09/29/2018 2:48 AM [employer] TR[employer] DRIVER 10 mg 10 mg, Oral, AT BEDTIME PRN, sleep, Starting on Thu09/29/18 at 0044 metoprolol tartrate (LOPRESSOR) tablet 5 0 mg Given 09/29/2018 8:21 AM [employer]IVER 50 mg 50 mg, Oral, 2 TIMES DAILY, First dose on Thu09/28/18 at 2100 Given 09/28/2018 9:50 PM [employer]IVER 50 mg oxyCODONE (ROXICODONE) tablet 5 mg Given 09/28/2018 10:49 PM [employer] DRIVER 5 mg 5 mg, Oral, EVERY 3 HOURS PRN, other, pain control or improvement in physical function. Hold dose for analgesic side effects., Starting on Thu09/28/18 at 1751, Notify provider to assess for uncontrolled pain or analgesic side effects. Hold while on VAMP STRAP IRONER or with regular IV opioid dosing. Maximum total is 40 mg in 24 hours., Post-procedure sodium chloride (PF) 0.9% PF flush 3 mL Given 09/28/2018 9:58 PM G[employer] TR[employer] DRIVER 3 mLs 3 mL, Intracatheter, EVERY 8 HOURS, First dose on Thu09/28/18 at 2200, And Q1H PRN, to lock peripheral IV dormant line., Post-procedure terazosin (HYTRIN) capsule 5 mg Given 09/28/2018 10:49 PM [employer]IVER 5 mg 5 mg, Oral, AT BEDTIME, First dose on Thu09/28/18 at 2200 documented in this encounter Active and Recently Administered Medications Times are shown in G[employer]. Scheduled Medication Order 09/27/2018 09/28/2018 09/29/2018 acetaminophen [...] apixaban ANTICOAGULANT (ELIQUIS) tablet 2.5 mg (CANCELED) 08 (Given - Provider: Jose Dave RN) 2.5 mg, Oral, 2 TIMES DAILY, First dose on Thu09/29/18 at 0900 atorvastatin (LIPITOR) tablet 40 mg 2150 (Given - Provider: Ira South, JOSE) 40 mg, Oral, EVERY EVENING, First dose on 12/11/18 at 2000 ceFAZolin (ANCEF) intermittent infusion 2 g in 100 mL dextrose PRE-MIX (COMPLETED) 215 (Given - Provider: Ira South, JOSE ) 0541 (Given - Provider: Griselda Dinero RN) 2 g, Intravenous, EVERY 8 HOURS, First d ose on Thu09/28/18 at 2100, For 2 doses, Indications: Perioperative Pharmacoprophylaxis, Post-procedure clindamycin (CLEOCIN) infusion 900 mg (COMPLETED) 1216 (Handoff - Provider: Isis Rivera RN)1318 (Given - Provider: Mattie Marmolejo APRN CRNA) 900 mg, Intravenous, PRE-OP/PRE-PROCEDUR E, Starting Thu09/28/18 [...] minutes. iopamidol (ISOVUE-370) solution 80 mL (COMPLETED) 113 (Given - Provider: Fela Ny) 80 mL, Intravenous, ONCE, Thu09/29/18 at 1130, For 1 dose lisinopril (PRINIVIL/ZESTRIL) tablet 5 mg 2151 (Given - Provider: Ira South RN) 0821 (Given - Provider: Cary Harper) 5 mg, Oral, 2 TIMES DAILY, First dose on Thu09/28/18 at 2100 metoprolol tartrate (LOPRESSOR) tablet 50 mg 2149 (Given - Provider: Ira South RN) 0821 (Given - Provider: Cary Harper) 50 mg, [...] chloride (PF) 0.9% PF flush 3 mL 2158 (Given - Provider: Ira South, RN) 0555 (Not Given - Provider: Griselda bradshaw RN - Reason: IV Infusing)1457 (Not Given - Provider: Jose Dave, JOSE - Reason: Loss of IV access) 3 mL, Intracatheter, EVERY 8 HOURS, Firs t dose on Thu09/28/18 at 2200, And Q1H PRN, to lock peripheral IV dormant line., Post-procedure terazosin (HYTRIN) capsule 5 mg 9 (Given - Pr ovider: Ira South, JOSE) 5 mg, Oral, AT BEDTIME, First dose on Thu09/28/18 at 2200 Continuous Medication Order 09/27/2018 09/28/2018 09/29/2018 lactated ringers infusion (CANCELED) 121 6 (New Bag - Provider: Isis Rievra RN)1319 (Anesthesia Volume Adjustment - Provider: Mattie Marmolejo APRN FIRE SPRINKLER APPARATUS INSPECTOR)1432 (Anesthesia Volume Adjustment - Provider: Mattie Marmolejo APRN FIRE SPRINKLER APPARATUS INSPECTOR) at 25 mL/hr, Intravenous, CONTINUOUS, IF patient NOT on dialysis., Pre- procedure, Starting Thu09/28/18 at 1115, Until Thu09/28/18 at 1457 lactated ringers infusion 1831 (New Bag - Provid er: Vandana Smith RN) 0039 (Rate/Dose Verify - Provider: Griselda Dinero RN)0248 (New Bag - Provider: Griselda Dinero RN)1202 (Stopped - Provider: Jose Dave RN) at 125 mL/hr, Intravenous, CONTINUOUS, N OT for patient on renal dialysis. Saline lock after 1 liter if taking PO fluids., Post-procedure, Starting Thu09/28/18 at 1800, Until Thu09/29/18 at 1753 PRN Medication Order 09/27/2018 09/28/2018 09/29/2018 fentaNYL (PF) (SUBLIMAZE) injection 25-50 mcg (CANCELED) 1541 (Given - Provider: Rylee Muñiz RN)1550 (Given - Provider: Rylee Muñiz, RN)1604 (Given - Provider: Rylee Muñiz RN) [...] 2.5-5 mg (CANCELED) 1610 (Given - Provider: Rlyee Muñiz RN - Comment: BP 163/73) 2.5-5 [...] (CANCELED) 1200 (Give n - Provider: Isis Rivera, JOSE) 1 mL, Other, EVERY 1 HOUR PRN, [...] response., Post-procedure oxyCODONE (ROXICODONE) tablet 5 mg 1026 (Given - Provider: Ira South, JOSE) 5 mg, Oral, EVERY 3 HOURS PRN, other, pa in control or improvement in physical function. Hold dose for analgesic side effects., Starting Thu09/28/18 at 1751, Notify provider to assess for uncontrolled p ain or analgesic side effects. Hold whil e on VAMP STRAP IRONER or with regular IV opioid dosing. Maximum total is 40 mg in 24 hours., Post-procedure sodium chloride (PF) 0.9% PF flush 3 mL 3 mL, Intracatheter, EVERY 1 HOUR PRN, l ine flush, for peripheral IV flush post IV meds, Starting Thu09/28/18 at 1751, Post-procedure documented in this encounter Care Teams Benzene Washer Operator Relationship Specialty Start Date End Date Clinic, [facility] PCP - General 05/12/[address] [place] [id number] documented as of this encounter
--- OUTSIDE RECORDS SUMMARY | 2022-05-28 05:04 | XMS_ITS | Encounter Summary ---
:1940 Author Organization [place] Address [address] [place] [address] Care Team Providers Name Role Phone Clinic, [facility] Primary Care Provider [phone] Reason for Visit Auth/Cert Specialty Diagnoses / Procedures Referred By Contact Refer red To Contact Surgery Diagnoses DESCENDING THORACIC AORTIC ANEURYSM Sh Periop Services Procedures ENDOVASCULAR REPAIR ANEURYSM THORACIC AORTIC [address] [place] [address] Phone: Referral ID Status Reason Start Date Expiration Date Visits Requ ested Visits Authorized [id number] 1 1 Encounter Details Date Type Department Care Team Description 11/05/2018 Anesthesia Event [facility] Fela Conrad PeriOP Ser vices [place] [address], [address] [facility]IOLOGISTS [place] [phone] [phone] [place] [id number] (Wo rk) Anesthesia Record Procedure Summary Procedure Name Responsible Anesthesia Start Anesthesia Stop Anesthesiologist Time Time THORACIC ENDOVASCULAR Fela Conrad 11/05/18 0957 0 11/05/18 1244 ANEURYSM REPAIR WITH MEDTRONIC GRAFT (N/A Abdomen) Events Date Time Event Comment 11/05/2018 0644 0957 An Start 0957 An Start Data 1009 MD Present 1013 Quick Note Lumbar drain pre ssure (mmHg) 1013: 10 10:30: 12 11:00: 11 11:30: 14 12: 00: 11 12:05: 9 (continuous reading. Drain clamped) 1 216: 16 (opened to drain) 12:30: 1014 An Induction 1017 An Intubation 1036 MD Present 1037 AN INCISION 1119 Quick Note Lumbar drain unc lamped. 1136 MD Present 1219 MD Present 1228 AN Extubation 1230 an stop data 1243 Quick Note Patient monitore d continuously en route to PACU. Connected to PAC U monitors. Nitroglycerin given for elevated BP, as documented. Vitals entered manually. 1244 An Stop Electronically s igned by Ivon Aguilar on November 05, 2018 12:44 P M Name Total dexamethasone 4mg/mL 4 mg ePHEDrine 5 mg/mL 20 mg fentaNYL (SUBLIMAZE) injection 200 mcg glycopyrrolate 0.2mg/mL 0.8 mg lidocaine 2% 80 mg neostigmine 1mg/mL 4 mg ondansetron 2mg/mL 4 mg phenylephrine (CHRISTINE-SYNEPHRINE) injection 100 mcg propofol (DIPRIVAN) injection 10 mg/mL vial 200 mg rocuronium 10mg/mL 50 mg vecuronium 1mg/mL 3 mg phenylephrine 0.2 mg/mL (mcg/kg/min) drip 0.94 mg clindamycin 900 mg/50mL 900 mg heparin 1,000 units/mL 7,000 Units nitroglycerin bolus 100 mcg/mL 55 mcg LR 550 mL LR PIV #2 1,200 mL sodium chloride 0.9% 850 mL Agents Name NO HELIOX O2 N2O Air Exp Sevoflurane Exp Isoflurane Exp Desflurane Exp N2O Ins Sevoflurane Ins Isoflurane Ins Desflurane O2 Auxiliary Blood No blood administrations on file. Lines, Drains, and Airways Type Details Placement Removal Incision/Surgical Site 11/05/18; 1241; Left; 11/05/18 1241 by Rasta Lorenzana RN Incision/Surgical Site 11/05/18; 1241; 11/05/18 1241 by Rasta Vera RN RETIRED ETT Mask Ventilation: 11/05/18 1105 by 11/05/18 1228 by Easy with oral Ivon Aguilar airway; Ease of LABEL CUTTER CLAIMS INVESTIGATOR Intubation: Easy; Airway Size: 8; Cuffed; Oral; Blade Type: Glidescope; Blade Size: 4; Place by: Ryan Whitmorezer; Insertion Attempts: 1; Secured at (cm)to lip: 23 cm; Breath Sounds: Equal, clear and bilateral; End Tidal CO2: Present; Dentition: Intact, Unchanged; Grade View of Cords: 1; Airway Adjuncts: Porter scope Left Groin Interventional #1; 09/28/18; 1500 09/28/18 1500 by 0104 by Procedure Access (present prior to Rylee Muñiz Inpatien t, Nurse arrival to PACU); RN 08/09/21; 0104 Right Groin Interventional #1; 09/28/18; 1500 09/28/18 1500 by 1 0104 by Procedure Access (present prior to Rylee Muñiz Inpatien t, Nurse arrival to pac u); RN 08/09/21; 0104 Peripheral IV 11/05/18; 16 G; Left; 11/05/18 0000 by 11/09/18 0630 by Lower forearm; Tiannaedstagideon, Isis Dunbar, Chlorhexidine; JOSE Manjarrez RN Injectable; Tolerated well Arterial Line 11/05/18; Right; 11/05/18 0000 by 11/08/18 1209 by Radial; 11/08/18; Danette Peck Burian, Ma rissa, 1209; No longer RN RN indicated Peripheral IV 11/05/18; 0740; 16 G; 11/05/18 0740 by 11/08/18 2300 by Right; Hand; Smedstagideon, Isis Dunbar, Chlorhexidine; JOSE Manjarrez RN Injectable; Tolerated well Lumbar Drain 11/05/18; 0859; Dr. 11/05/18 0859 by 11/08/18 06 00 by Gwen Ramsay RN Wolfgram, Ashl ey M, RN Urethral Catheter 11/05/18; 1024; No; 11/05/18 1024 by de 1740 by Anesthesia; 16 fr Asis, Luciana Maravilla, Nayan, RN RN documented in this encounter Social History [...] encounter OR Notes Anesthesia Postprocedure Evaluation - Fela Conrad - 11/05/2018 3:25 PM CST Patient: Speedy Hendricks Procedure(s): THORACIC ENDOVASCULAR ANEURYSM REPAIR WITH MEDTRONIC GRAFT Diagnosis:DESCENDING THORACIC AORTIC ANEURYSM Diagnosis Additional Information: No value filed. Anesthesia Type: General, ETT Note: Anesthesia Post Evaluation Patient location during evaluation: PACU Patient participation: Able to fully participate in evaluation Level of consciousness: awake, awake and alert and responsive to verbal stimuli Pain management: adequate Airway patency: patent Cardiovascular status: acceptable Respiratory status: acceptable Hydration status: acceptable PONV: none Anesthetic complications: None Comments: Moving bilateral legs Last vitals: Vitals: 11/05/18 1350 11/05/18 1400 11/05/18 1500 BP: Pulse: Resp: 11 14 22 Temp: SpO2: 96% 100% Electronically Signed By: Fela Conrad November 05, 2018 3:25 PM POLISHING MACHINE OPERATOR Anesthesia Procedure Notes - Fela Conrad - 11/05/2018 3:24 PM TOOL POLISHING MACHINE OPERATOR Associated Order(s): Central line catheter placement CENTRAL LINE INSERTION PROCEDURE NOTE: Pre-Procedure Performed by Fela Conrad Location: OR, pre-op Pre-Anesthestic Checklist: patient identified, risks and benefits discussed and informed consent Timeout Correct Patient: Yes Correct Procedure: Yes Correct Site: Yes Correct Laterality: N/A Correct Position: Yes Site Marked: N/A . Procedure Documentation Procedure: central line Position: Trendelenburg Patient Prep;chlorhexidine gluconate and isopropyl alcohol, patient draped Insertion Site:internal jugular, right Using U/S with sterile probe cover and sterile gel, vein evaluated for patency/adequacy of cortis insertion is adequate, and using realtime U/S imaging the ranjan was punctured, and needle was observed entering vein on U/S. A permanent image is entered into the patient's record. Skin infiltrated with mL of 1% lidocaine. Catheter: 7 Fr, 20 cm, T.L. Assessment/Narrative Secured by suture Tegaderm and Biopatch dressing used. blood aspirated from all lumens All lumens flushed: Yes Comments: Central Line No complications. POLISHING MACHINE OPERATOR Anesthesia Procedure Notes - Fela Conrad - 11/05/2018 3:23 PM TOOL POLISHING MACHINE OPERATOR Associated Order(s): A Line Catheter Placement ARTERIAL LINE PROCEDURE NOTE: Pre-Procedure Performed by Fela Conrad Location: pre-op Pre-Anesthestic Checklist: patient identified, IV checked, risks and benefits discussed and informedconsent Timeout Correct Patient: Yes Correct Procedure: Yes Correct Site: Yes Correct Laterality: N/A Correct Position: Yes Site Marked: N/A . Procedure Documentation Procedure: arterial line Supine Insertion Site:right, radial.Skin infiltrated with mL of 1% lidocaine. Injection technique: Seldinger Technique . . Patient Prep;chlorhexidine gluconate and isopropyl alcohol, patient draped Assessment/Narrative Catheter: 20 gauge, 12 cm Secured by suture Tegaderm dressing used. Arterial waveform: Yes Comments: Arterial Line No complications POLISHING MACHINE OPERATOR Anesthesia Preprocedure Evaluation - Fela Conrad - 11/04/2018 6:53 PM CST Anesthesia Pre-Procedure Evaluation Patient: Speedy Hendricks : 1940 Preoperative Diagnosis: DESCENDING THORACIC AORTIC ANEURYSM Procedure(s): THORACIC ENDOVASCULAR ANEURYSM REPAIR WITH MEDTRONIC GRAFT Past Medical History: Diagnosis Date ??? AAA [...] IR ABDOMINAL ENDOVASCULAR STENT GRAFT 09/28/2018 ??? ORTHOPEDIC SURGERY left foot surg ??? ORTHOPEDIC SURGERY cervical fusion x2 ??? REMOVE HARDWARE FOOT 09/30/2012 Procedure: REMOVE HARDWARE FOOT; hardware removel left foot; Surgeon: Sal Chaparro DPM; Location: [facility] OR ??? THORACIC SURGERY left lung surg decortifcation ??? wisdom teeth[ Anesthesia Evaluation . ROS/MED HX ENT/Pulmonary: (+)COPD, , . . Neurologic: (+)TIA features: associated with a narcotic overdose, Cardiovascular: Comment: Thoracoabdominal aneurysm Interpretation Summary ?? A cardiac source of embolus was not identified. A contrast injection (Bubble Study) was performed that was negative for flow across the interatrial septum. Left ventricular systolic function is normal. The visual ejection fraction is estimated at 55-60%. The left ventricle is normal in size. There is trace to mild mitral regurgitation. Sinus rhythm was noted. ?? No significant change since 05/07/2017. (+) hypertension----. Taking blood thinners : . . . :. dysrhythmias a-flutter and a-fib, . METS/Exercise Tolerance: Hematologic: Musculoskeletal: Comment: S/p spinal fusion L2-S1 GI/Hepatic: (-) GERD and liver disease Renal/Genitourinary: (+) chronic renal disease, type: CRI, Endo: Psychiatric: Infectious Disease: (+) MRSA, Malignancy: (+) Malignancy History of Skin Other: Physical Exam Normal systems: dental Airway Mallampati: II TM distance: <3 FB Neck ROM: full Dental Cardiovascular Rhythm and rate: regular Pulmonary breath sounds clear to auscultation Lab Results Component Value Date WBC 6.1 11/14/2017 HGB 13.7 11/14/2017 HCT 41.0 11/14/2017 PLT 122 (L) 11/14/2017 NA 141 09/29/2018 POTASSIUM 4.5 09/29/2018 CHLORIDE 109 09/29/2018 CO2 25 09/29/2018 BUN 18 09/29/2018 CR 1.25 09/29/2018 GLC 97 09/29/2018 BALDEMAR 8.8 09/29/2018 PHOS 3.3 05/07/2017 MAG 2.3 05/07/2017 ALBUMIN 2.6 (L) 05/07/2017 PROTTOTAL 6.2 (L) 05/07/2017 ALT 34 05/07/2017 AST 46 (H) 05/07/2017 ALKPHOS 156 (H) 05/07/2017 BILITOTAL 0.5 05/07/2017 PTT 30 11/14/2017 INR 0.96 11/14/2017 Preop Vitals BP Readings from Last 3 Encounters: 09/29/18 135/74 07/01/18 128/70 06/03/18 120/64 Pulse Readings from Last 3 Encounters: 09/29/18 (!) 48 07/01/18 (!) 48 06/03/18 52 Resp Readings from Last 3 Encounters: 09/29/18 16 07/01/18 16 06/03/18 16 SpO2 Readings from Last 3 Encounters: 09/29/18 95% 07/01/18 97% 06/03/18 99% Temp Readings from Last 1 Encounters: 09/29/18 36.5 ??C (97.7 ??F) (Oral) Ht Readings from Last 1 Encounters: 09/28/18 1.702 m (5' 7) Wt Readings from Last 1 Encounters: 09/29/18 85.2 kg (187 lb 12.8 oz) Estimated body mass index is 29.41 kg/m?? as calculated from the following: Height as of 09/28/18: 1.702 m (5' 7). Weight as of 09/29/18: 85.2 kg (187 lb 12.8 oz). Anesthesia Plan History & Physical Review History and physical reviewed and following examination; no interval change. ASA Status: 3 . NPO Status: > 8 hours Plan for General and ETT PONV prophylaxis: Ondansetron (or other 5HT-3) and Dexamethasone or Solumedrol Additional equipment: Videolaryngoscope, Arterial Line, Central Line, 2nd IV and CVP Spinal drain, drain no more then 10ml/hr. Keep spinal cord pressure around 10 Phenylephrine or norepi for MAP >80 Fentanyl only No rose hugger Postoperative Care Consents Anesthetic plan, risks, benefits and alternatives discussed with: Patient.. Fela Conrad POLISHING MACHINE OPERATOR documented in this encounter Miscellaneous Notes Anesthesia Care Transfer Note - Ivon Aguilar APRN CRNA - 11/05/2018 12:44 PM CST Patient: Speedy Hendricks Procedure(s): THORACIC ENDOVASCULAR ANEURYSM REPAIR WITH MEDTRONIC GRAFT Diagnosis: DESCENDING THORACIC AORTIC ANEURYSM Diagnosis Additional Information: No value filed. Anesthesia Type: General, ETT Note: Airway :Face Mask Patient transferred to:PACU Comments: Vitals stable, exchanging well. Vitals: (Last set prior to Anesthesia Care Transfer) ROMIE VITALS 11/05/2018 1200 - 11/05/2018 1244 11/05/2018 Pulse: 72 ART BP: 159/69 ART Mean: 111 SpO2: 91 % Resp Rate (set): 10 Electronically Signed By: Ivon Aguilar APRN CRNA November 05, 2018 12:44 PM POLISHING MACHINE OPERATOR documented in this encounter Plan of Treatment Not on filedocumented as of this encounter Procedures Procedure Name Priority Date/Time Associated Diagnosis Comme nts FV AN MD PA CENTRAL Routine 11/05/2018 3:24 PM TOOL POLISHING MACHINE OPERATOR LINE CATHETER PROCEDURE Procedure Note - Dariel Conrad - 11/05/2018 3:24 PM CSTThis note is in progress. Formatting of this note migh t be different from the original. CENTRAL LINE INSERTION PROCE DURE NOTE: Pre-Procedure Performed by Fela Conrad Location: OR, pre-op Pre-Anesthestic Checklist: p atient identified, risks and benefits discussed and informed consent Timeout Correct Patient: Yes Correct Procedure: Yes Correct Site: Yes Correct Laterality: N/A Correct Position: Yes Site Marked: N/A . Procedure Documentation Procedure: central line Position: Trendelenburg Patient Prep;chlorhexidine g luconate and isopropyl alcohol, patient draped Insertion Site:internal jugu lar, right Using U/S with sterile probe cover and sterile gel, vein evaluated for patency/adequacy of cortis insertion is adequate, and using realtime U/S imaging the ranjan was punctured, and needle was observed entering vein on U/S. A permanent image is en tered into the patient's record. Skin infiltrated with mL of 1% lidocaine. Catheter: 7 Fr, 20 cm, T.L. Assessment/Narrative Secured by suture Tegaderm and Biopatch dressi ng used. blood aspirated from all lum ens All lumens flushed: Yes Comments: Central Line No complications. ANE A LINE CATHETER PLACEMENT Routine 11/05/2018 3:23 PM TOOL POLISHING MACHINE OPERATOR Procedure Note - Dariel Conrad - 11/05/2018 3:23 PM CSTThis note is in progress. Formatting of this note migh t be different from the original. ARTERIAL LINE PROCEDURE NOTE : Pre-Procedure Performed by Fela Conrad Location: pre-op Pre-Anesthestic Checklist: p atient identified, IV checked, risks and benefits discussed and informed consent Timeout Correct Patient: Yes Correct Procedure: Yes Correct Site: Yes Correct Laterality: N/A Correct Position: Yes Site Marked: N/A . Procedure Documentation Procedure: arterial line Supine Insertion Site:right, radial .Skin infiltrated with mL of 1% lidocaine. Injection technique: Seldinger Technique . . Patient Prep;chlorhexidine gluconate and isopropyl alcohol, patient draped Assessment/Narrative Catheter: 20 gauge, 12 cm Secured by suture Tegaderm dressing used. Arterial waveform: Yes Comments: Arterial Line No complications documented in this encounter Visit Diagnoses Not on filedocumented in this encounter Administered Medications Inactive Administered Medications - up to 3 most recent administrations Medication Order MAR Action Action Date Dose Rate Site clindamycin (CLEOCIN) infusion Given 11/05/2018 10:28 AM TOOL POLISHING MACHINE OPERATOR 900 mg Routine, PRN, Starting on Thu11/05/18 at 1028, Anesthesia Intra-op dexamethasone (DECADRON) injection Given 11/05/2018 10:25 AM TOOL POLISHING MACHINE OPERATOR 4 mg PRN, Administer over 1 Minutes, Starting on Thu11/05/18 at 1025, Anesthesia Intra-op ePHEDrine injection Given 11/05/2018 10:55 AM TOOL POLISHING MACHINE OPERATOR 10 mg PRN, Starting on Thu11/05/18 at 1025, Anesthesia Intra-op Given 11/05/2018 10:38 AM TOOL POLISHING MACHINE OPERATOR 5 mg Given 11/05/2018 10:25 AM TOOL POLISHING MACHINE OPERATOR 5 mg fentaNYL (PF) (SUBLIMAZE) injection Given 11/05/2018 11:48 AM TOOL POLISHING MACHINE OPERATOR 50 mcg PRN, Administer over 3-5 Minutes, Starting on Thu11/05/18 at 1010, Anesthesia Intra-op Given 11/05/2018 11:17 AM TOOL POLISHING MACHINE OPERATOR 50 mcg Given 11/05/2018 10:10 AM TOOL POLISHING MACHINE OPERATOR 100 mcg glycopyrrolate (ROBINUL) injection Given 11/05/2018 12:09 PM TOOL POLISHING MACHINE OPERATOR 0.2 mg PRN, Administer over 1-2 Minutes, Starting on Thu11/05/18 at 1055, Anesthesia Intra-op Given 11/05/2018 12:07 PM TOOL POLISHING MACHINE OPERATOR 0.4 mg Given 11/05/2018 10:55 AM TOOL POLISHING MACHINE OPERATOR 0.2 mg heparin (porcine) injection Given 11/05/2018 10:59 AM TOOL POLISHING MACHINE OPERATOR 7,000 Units PRN, Starting on Thu11/05/18 at 1059, Anesthesia Intra-op lactated ringers infusion New Bag 11/05/2018 7:30 AM TOOL POLISHING MACHINE OPERATOR Intravenous, CONTINUOUS PRN, Anesthesia Intra-op, Starting on Thu11/05/18 at 0957, Until Thu11/05/18 at 1244 lactated ringers infusion New Bag 11/05/2018 9:57 AM TOOL POLISHING MACHINE OPERATOR CONTINUOUS PRN, Anesthesia Intra-op, Starting on Thu11/05/18 at 0730, Until Thu11/05/18 at 1244 New Bag 11/05/2018 7:30 AM TOOL POLISHING MACHINE OPERATOR lidocaine 2% injection (MDV) Given 11/05/2018 10:14 AM TOOL POLISHING MACHINE OPERATOR 80 mg PRN, Starting on Thu11/05/18 at 1014, Anesthesia Intra-op neostigmine (PROSTIGMINE) injection Given 11/05/2018 12:09 PM TOOL POLISHING MACHINE OPERATOR 2 mg Intravenous, PRN, Starting on Thu11/05/18 at 1207, Anesthesia Intra-op Given 11/05/2018 12:07 PM TOOL POLISHING MACHINE OPERATOR 2 mg nitroGLYcerin 25 mg in D5W 250 mL infusi on Given 11/05/2018 12:39 PM TOOL POLISHING MACHINE OPERATOR 10 mcg PRN, Starting on Thu11/05/18 at 1113, Anesthesia Intra-op Given 11/05/2018 12:38 PM TOOL POLISHING MACHINE OPERATOR 15 mcg Given 11/05/2018 11:15 AM TOOL POLISHING MACHINE OPERATOR 10 mcg ondansetron (ZOFRAN) injection Given 11/05/2018 12:07 PM TOOL POLISHING MACHINE OPERATOR 4 mg PRN, Administer over 2-5 Minutes, Starting on Thu11/05/18 at 1207, Anesthesia Intra-op phenylephrine (CHRISTINE-SYNEPHRINE) injection Bolus 11/05/2018 11:23 AM TOOL POLISHING MACHINE OPERATOR 50 mcg CONTINUOUS PRN, Starting on Thu11/05/18 at 1120, Anesthesia Intra-op New Bag 11/05/2018 11:20 AM TOOL POLISHING MACHINE OPERATOR 50 mcg phenylephrine 0.2 mg/mL Restarted 11/05/2018 11:39 AM 0.2 mcg/kg/min 5.06 mL/hr (mcg/kg/min) drip TOOL POLISHING MACHINE OPERATOR CONTINUOUS PRN, Starting on Thu11/05/18 at 1024, Anesthesia Intra-op Rate/Dose Change 11/05/2018 11:27 AM TOOL POLISHING MACHINE OPERATOR 0.2 mcg/kg/min 5.06 mL/hr Restarted 11/05/2018 11:20 AM TOOL POLISHING MACHINE OPERATOR 0.3 mcg/kg/min 7.59 mL/hr propofol (DIPRIVAN) injection 10 mg/mL v ial Given 11/05/2018 11:17 AM TOOL POLISHING MACHINE OPERATOR 30 mg PRN, Starting on Thu11/05/18 at 1014, Anesthesia Intra-op Given 11/05/2018 10:14 AM TOOL POLISHING MACHINE OPERATOR 170 mg rocuronium (ZEMURON) injection Given 11/05/2018 10:15 AM TOOL POLISHING MACHINE OPERATOR 50 mg PRN, Starting on Thu11/05/18 at 1015, Anesthesia Intra-op sodium chloride 0.9% infusion New Bag 11/05/2018 9:57 AM TOOL POLISHING MACHINE OPERATOR CONTINUOUS PRN, Anesthesia Intra-op, Starting on Thu11/05/18 at 0957, Until Thu11/05/18 at 1244 vecuronium (NORCURON) injection Given 11/05/2018 11:23 AM TOOL POLISHING MACHINE OPERATOR 1 mg PRN, Starting on Thu11/05/18 at 1031, Anesthesia Intra-op Given 11/05/2018 10:31 AM TOOL POLISHING MACHINE OPERATOR 2 mg documented in this encounter Additional Health Concerns Infection Onset Date Last Indicated Resolved Time MRSAComment: Positive 02/17/11 and 09/22/12 11/05/2018 019 Negatives 05/03/14 (HE), 12/01/14 (HE) documented as of this encounter Care Teams Helicopter Pilot Instructor Relationship Specialty Start Date End Date [facility], [facility] PCP - General 05/12/[address] [place], [place] [id number] documented as of this encounter
--- OUTSIDE RECORDS SUMMARY | 2022-05-28 05:04 | XMS_ITS | Encounter Summary ---
:1940 Author Organization [place] Address [facility] [place] [address] Care Team Providers Name Role Phone Clinic, [facility] Primary Care Provider [phone] Reason for Visit Reason Onset Date Comments Appointment 06/18/2018 Encounter Details Date Type Department Care Team Description 06/18/2018 Telephone [facility] Vascular Juan Delcid MD Appointment Clinic [place] [address] [place] [address] [place] [address] [phone] Social History Tobacco Use Types Packs/Day Years [...] Telephone Encounter - Sondra Johnson RN - 06/22/2018 4:20 PM CDT Discussed with pt. He would like to proceed with surgery. Pt is scheduled for OV only with Dr. Lewis on 07/01/18 in [place]. Pt had no further questions at this time. SHASTA Winkler, RN Telephone Encounter - Sondra Johnson RN - 06/18/2018 4:[address] Lewis's request, contacted pt to discuss results from CTA Abdomen/Pelvis. Left non-detailedmessage requesting pt to call back. Pt is able to have endovascular repair based on report. If pt would like to proceed with surgery, ptneeds to schedule an OV only with Dr. Lewis to discuss. Otherwise pt may continue to observe and follow up in one year with a repeat CTA Abdomen/Pelvis. Provided direct phone number for pt to return call at his convenience. SHASTA Winkler, RN documented in this encounter Plan of Treatment Not on filedocumented as of this encounter Visit Diagnoses Not on filedocumented in this encounter Care Teams Front Desk Associate Relationship Specialty Start Date End Date Bandar, Kehinde Portillofield PCP - General 05/12/[address] [place] [id number] documented as of this encounter
--- OUTSIDE RECORDS SUMMARY | 2022-05-28 05:04 | XMS_ITS | Encounter Summary ---
:1940 Author Organization [place] Address [facility] [place] [address] Care Team Providers Name Role Phone Clinic, [facility] Primary Care Provider [phone] Reason for Visit Reason Onset Date Comments Clinic Care Coordination - Follow-up 10/01/2018 Encounter Details Date Type Department Care Team Description 10/01/2018 Telephone [facility] C are Coordination Vascular Clinic Félix Nava MD - Follow-up [address] [place] [address] [place] [address] [phone] Social History Tobacco Use Types Packs/Day Years [...] Telephone Encounter - Sondra Johnson RN - 10/06/2018 3:[address] Lewis, pt does not need to schedule an OV and he will call Raquel on to discuss surgical plan after he has spoken with IR and the Anesthesia dept. Attempted to reach louise García with update and provided direct number for any further questions. SHASTA Winkler, RN ING TECH Telephone Encounter - Sondra Johnson RN - 10/05/2018 2:41 PM CST Attempted to contact Raquel to arrange OV with pt and Dr. Lewis. M requesting a call back to schedule. Dr. Lewis would like to further discuss surgical plan with pt and Raquel. Surgery is able to be done via endovascular approach. Provided clinic phone number and direct number for Raquel to call back to schedule an OV only appointment with Dr. Lewis. SHASTA Winkler, RN ING TECH Telephone Encounter - Sondra Johnson RN - 10/01/2018 1:[address] Lewis's request, contact pt's daughter Raquel with an update on care plan. Raquel updated that Dr. Lewis will contact her on Thursday with a new plan for her dad. Raquel was in agreement with this plan. SHASTA Winkler, RN ING TECH documented in this encounter Plan of Treatment Not on filedocumented as of this encounter Visit Diagnoses Not on filedocumented in this encounter Care Teams Geoduck Diver Relationship Specialty Start Date End Date Kehinde Portillofield PCP - General 05/12/[address] [place] [phone] documented as of this encounter
--- OUTSIDE RECORDS SUMMARY | 2022-05-28 05:04 | XMS_ITS | Encounter Summary ---
:1940 Author Organization [facility] Address [address] [place] [address] Care Team Providers Name Role Phone Clinic, [facility] Primary Care Provider [phone] Reason for Visit CV Testing - Closed Specialty Diagnoses / Procedures Referred By Contact Refer red To Contact Cardiology Diagnoses Transient cerebral ischemia, unspecified type Luis Antonio Quintanilla MD Rh Echo cc Procedures ECHO COMPLETE BUBBLE STUDY WITH OPTISON Echo Complete Bubble [address] [address] [place] [address] [address] [place] [address] Phone: Fax: Referral ID Status Reason Start Date Expiration Date Visits Requ ested Visits Authorized [id number] Closed 11/16/2017 11/16/2018 1 1 Encounter Details Date Type Department Care Team Description 11/17/2017 Hospital Encounter [facility] Luis Antonio Quintanilla [facility] MD Pippa ischemia, unspecified [facility] [address] type [address] [place], [place] [address] [address] [place], [place] [phone] (Work) [phone] Social History Tobacco Use Types Packs/Day Years [...] Name Priority Date/Time Associated Diagnosis Comme nts ECHO COMPLETE Routine 11/17/2017 2:35 PM Transient cerebral Re sults for this BUBBLE STUDY WITH FACILITY REHAB DIRECTOR ischemia, procedure are in OPTISON unspecified type the results section. documented in this encounter Results ECHO COMPLETE BUBBLE STUDY WITH OPTISON (11/17/2017 2:35 PM FACILITY REHAB DIRECTOR) Anatomical Region Laterality Modality Echocardiography Specimen (Source) Anatomical Collection Method Collection Time Re ceived Time Location / / Volume Laterality 11/17/2017 1:54 PM FACILITY REHAB DIRECTOR Narrative 11/17/2017 3:15 PM FACILITY REHAB DIRECTOR [id number]^ARNAUD^LUIS ANTONIO^PIPPA [facility] Echocardiography Laboratory [address] [place] [address] Name: SPEEDY MCDUFFIE : 1940 Study Date: 11/17/2017 01:54 PM Age: 77 yrs Gender: Male Patient Location: [facility] [place] Reason For Study: , Transient cerebral i schemia, unspecified type Ordering Physician: LUIS ANTONIO QUINTANILLA Referring Physician: LUIS ANTONIO QUINTANILLA Performed By: Kiarra Rubalcava BSA: 2.1 m2 Height: 71 in Weight: 193 lb HR: 61 BP: 195/87 mmHg __ Procedure Complete Bubble Echo Adult. Contrast Opt petra. __ Interpretation Summary A cardiac source of embolus was not iden tified. A contrast injection (Bubble Study) was performed that was negative for flow across the interatrial septum. Left ventricular systolic function is no rmal. The visual ejection fraction is estimate d at 55-60%. The left ventricle is normal in size. There is trace to mild mitral regurgitat ion. Sinus rhythm was noted. No significant change since 05/07/2017. __ Left Ventricle The left ventricle is normal in size. Th ere is normal left ventricular wall thickness. Left ventricular systolic fun ction is normal. The visual ejection fraction is estimated at 55-60%. Normal left ventricular diastolic function. No regional wall motion abnormalities no clover. There is no thrombus seen in the left ventricle. Right Ventricle The right ventricle is normal in structu re, function and size. There is no mass or thrombus in the right ventricle. Atria The left atrium is borderline dilated. R ight atrial size is normal. A contrast injection (Bubble Study) was performed t hat was negative for flow across the interatrial septum. Mitral Valve The mitral valve leaflets are mildly thi ckened. Calcified mitral apparatus. There is trace to mild mitral regurgitat ion. There is no mitral valve stenosis. Tricuspid Valve Normal tricuspid valve. Right ventricle systolic pressure estimate normal. The right ventricular systolic pressure is a pproximated at 30.2 mmHg plus the right atrial pressure. There is no tricu spid stenosis. 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 There is trace aortic regurgitation. No aortic stenosis is pre sent. Pulmonic Valve Normal pulmonic valve. There is no pulmo jamey valvular regurgitation. There is no pulmonic valvular stenosis. Vessels The aortic root is normal size. Normal s ize ascending aorta. The IVC is normal in size and reactivity with respiration, suggesting normal central venous pressure. The pulmonary artery is normal size. Pericardium The pericardium appears normal. There is no pleural effusion. Rhythm Sinus rhythm was noted. __ MMode/2D Measurements & Calculations RVDd: 3.7 cm IVSd: 0.96 cm LVIDd: 4.9 cm LVIDs: 3.1 cm LVPWd: 1.1 cm FS: 37.1 % EDV(Teich): 111.2 ml ESV(Teich): 36.8 ml LV mass(C)d: 184.1 grams LV mass(C)dI: 88.6 grams/m2 Ao root diam: 3.2 cm asc Aorta Diam: 3.5 cm LA volume (AL/bp): 74.1 cm3 LA Volume Indexed (AL/bp): 35.7 ml/m2 RWT: 0.46 Time Measurements MM HR: 57.2 BPM Doppler Measurements & Calculations MV E max reynold: 103.1 cm/sec MV A max reynold: 103.6 cm/sec MV E/A: 0.99 MV dec slope: 554.1 cm/sec2 MV dec time: 0.19 sec AI P1/2t: 581.7 msec LV V1 max P.9 mmHg LV V1 max: 98.3 cm/sec LV V1 VTI: 24.9 cm TV max P.2 mmHg TR max reynold: 274.7 cm/sec TR max P.2 mmHg E/E' av.8 Lateral E/e': 12.9 Medial E/e': 20.6 Peak E' Reynold: 5.3 cm/sec __ Report approved by: Dr. Jon peter 11/17/2017 03:15 PM Procedure Note Jon Jason MD - 11/17/2017For matting of this note might be different from the original. [id number]^ARNAUD^LUIS ANTONIO^PIPPA [facility] Echocardiography Laboratory [address] [place] [address] Name: SPEEDY MCDUFFIE : 1940 Study Date: 11/17/2017 01:54 PM Age: 77 yrs Gender: Male Patient Location: [facility] [place] Reason For Study: , Transient cerebral i schemia, unspecified type Ordering Physician: LUIS ANTONIO QUINTANILLA Referring Physician: LUIS ANTONIO QUINTANILLA Performed By: Kiarra Rubalcava BSA: 2.1 m2 Height: 71 in Weight: 193 lb HR: 61 BP: 195/87 mmHg __ Procedure Complete Bubble Echo Adult. Contrast Opt petra. __ Interpretation Summary A cardiac source of embolus was not iden tified. A contrast injection (Bubble Study) was performed that was negative for flow across the interatrial septum. Left ventricular systolic function is no rmal. The visual ejection fraction is estimate d at 55-60%. The left ventricle is normal in size. There is trace to mild mitral regurgitat ion. Sinus rhythm was noted. No significant change since 05/07/2017. __ Left Ventricle The left ventricle is normal in size. Th ere is normal left ventricular wall thickness. Left ventricular systolic fun ction is normal. The visual ejection fraction is estimated at 55-60%. Normal left ventricular diastolic function. No regional wall motion abnormalities no clover. There is no thrombus seen in the left ventricle. Right Ventricle The right ventricle is normal in structu re, function and size. There is no mass or thrombus in the right ventricle. Atria The left atrium is borderline dilated. R ight atrial size is normal. A contrast injection (Bubble Study) was performed t hat was negative for flow across the interatrial septum. Mitral Valve The mitral valve leaflets are mildly thi ckened. Calcified mitral apparatus. There is trace to mild mitral regurgitat ion. There is no mitral valve stenosis. Tricuspid Valve Normal tricuspid valve. Right ventricle systolic pressure estimate normal. The right ventricular systolic pressure is a pproximated at 30.2 mmHg plus the right atrial pressure. There is no tricu spid stenosis. 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 There is trace aortic regurgitation. No aortic stenosis is pre sent. Pulmonic Valve Normal pulmonic valve. There is no pulmo jamey valvular regurgitation. There is no pulmonic valvular stenosis. Vessels The aortic root is normal size. Normal s ize ascending aorta. The IVC is normal in size and reactivity with respiration, suggesting normal central venous pressure. The pulmonary artery is normal size. Pericardium The pericardium appears normal. There is no pleural effusion. Rhythm Sinus rhythm was noted. __ MMode/2D Measurements & Calculations RVDd: 3.7 cm IVSd: 0.96 cm LVIDd: 4.9 cm LVIDs: 3.1 cm LVPWd: 1.1 cm FS: 37.1 % EDV(Teich): 111.2 ml ESV(Teich): 36.8 ml LV mass(C)d: 184.1 grams LV mass(C)dI: 88.6 grams/m2 Ao root diam: 3.2 cm asc Aorta Diam: 3.5 cm LA volume (AL/bp): 74.1 cm3 LA Volume Indexed (AL/bp): 35.7 ml/m2 RWT: 0.46 Time Measurements MM HR: 57.2 BPM Doppler Measurements & Calculations MV E max reynold: 103.1 cm/sec MV A max reynold: 103.6 cm/sec MV E/A: 0.99 MV dec slope: 554.1 cm/sec2 MV dec time: 0.19 sec AI P1/2t: 581.7 msec LV V1 max P.9 mmHg LV V1 max: 98.3 cm/sec LV V1 VTI: 24.9 cm TV max P.2 mmHg TR max reynold: 274.7 cm/sec TR max P.2 mmHg E/E' av.8 Lateral E/e': 12.9 Medial E/e': 20.6 Peak E' Reynold: 5.3 cm/sec __ Report approved by: Dr. Jon peter 11/17/2017 03:15 PM Luis Antonio Quintanilla MD CV ECHO ORDERABLES documented in this encounter Visit Diagnoses Diagnosis Transient cerebral ischemia, unspecified type documented in this encounter Administered Medications Inactive Administered Medications - up to 3 most recent administrations Medication Order MAR Action Action Date Dose Rate Site perflutren diluted 1mL to 2mL with Given 11/17/2017 2:45 PM FACILITY REHAB DIRECTOR 3 mLs saline (OPTISON) diluted injection 3 mL 3 mL, Intravenous, ONCE, On Thu11/17/17 at 1445, For 1 dose, [facility] [id number] sodium chloride (PF) 0.9% PF flush 10 mL Given 11/17/2017 2:37 PM FACILITY REHAB DIRECTOR 10 mLs 10 mL, Intravenous, ONCE, On Thu11/17/17 at 1445, For 1 dose sodium chloride bacteriostatic 0.9 % flush 30 Given 2:37 PM FACILITY REHAB DIRECTOR 30 mLs mL 30 mL, Intravenous, ONCE, On Thu11/17/17 at 1445, For 1 dose documented in this encounter Care Teams Screen Printing Cloth Spreader Relationship Specialty Start Date End Date [facility], [facility] PCP - General 05/12/[address] [place] [id number] documented as of this encounter
--- OUTSIDE RECORDS SUMMARY | 2022-05-28 05:04 | XMS_ITS | Encounter Summary ---
:1940 Author Organization [facility] Address [address] [place] [address] Care Team Providers Name Role Phone Clinic, [facility] Primary Care Provider [phone] Reason for Visit Surgical Procedure Inpatient (Routine) - Closed Specialty Diagnoses / Procedures Referred By Contact Refer red To Contact Surgery Diagnoses AAA Juan Lewis MD Saylor, Howard Leroy, Procedures *OR 51* DR. ALANIZ TO ASSIST WITH ENDOVASCULAR REPAIR OF AAA WITH [employer] [phone] [place] [id number] [address] [place] [address] Phone: Fax: Referral ID Status Reason Start Date Expiration Date Visits Requ ested Visits Authorized [id number] Closed 09/28/2018 09/28/2019 1 1 Encounter Details Date Type Department Care Team Description 09/28/2018 Office Visit [facility] SURGERY CASES Juan Lewis MD [address] [place] [id number] Fellow, Sh Surg Cons Social History Tobacco [...] on filedocumented in this encounter Care Teams Child Caregiver Relationship Specialty Start Date End [facility] - [facility] 05/12/[address] [place] [id number] documented as of this encounter
--- OUTSIDE RECORDS SUMMARY | 2022-05-28 05:05 | XMS_ITS | Encounter Summary ---
:1940 Author Organization [facility] Address [address] [place] [id number] Care Team Providers Name Role Phone Celina Coley Primary Care Provider [facility] [place] Primary Care Provider Reason for Referral Specialty Diagnoses / Procedures Referred By Contact Tam parson To Contact Sanjuanita Ponce RN Referral ID Status Reason Start Date Expiration Date Visits Requ ested Visits Authorized Specialty Diagnoses / Procedures Referred By Contact Tam parson To Contact Adrian Pleitez MD [address] [place] [id number] Referral ID Status Reason Start Date Expiration Date Visits Requ ested Visits Authorized Specialty Diagnoses / Procedures Referred By Contact Tam parson To Contact Adrian Pleitez MD [address] [facility] [address] [place] [address] Referral ID Status Reason Start Date Expiration Date Visits Requ ested Visits Authorized Specialty Diagnoses / Procedures Referred By Contact Tam parson To Contact Adrian Pleitez MD [address] [place] [address] Referral ID Status Reason Start Date Expiration Date Visits Requ ested Visits Authorized ome Health Therapies & Aides Specialty Diagnoses / Procedures Referred By Contact Refer red To Contact Adrian Pleitez MD [address] [place] [address] Referral ID Status Reason Start Date Expiration Date Visits Requ ested Visits Authorized - Closed Specialty Diagnoses / Procedures Referred By Contact Refer red To Contact Diagnoses Paroxysmal atrial fibrillation (H) Taran Lugo MD [address] [place] [address] Referral ID Status Reason Start Date Expiration Date Visits Requ ested Visits Authorized [id number] Closed 06/11/2017 06/11/2018 1 1 Reason for Visit Reason Comments Drug Overdose Unknown of what drug but fou nd unresponsive this afternoon by family. Last seen well at 2300 yeste rday. Fully responsive post Narcan by EMS Auth/Cert Specialty Diagnoses / Procedures Referred By Contact Refer red To Contact Intensive Care Diagnoses Opioid overdose, accidental or unintentional, initial encounter (H) Aspiration pneumonia, unspecified aspiration pneumonia type, unspecified laterality, unspecified part of lung (H) Unresponsiveness Intensive Care [address] [place] [address] Phone: Referral ID Status Reason Start Date Expiration Date Visits Requ ested Visits Authorized [id number] 1 1 Encounter Details Date Type Department Care Team Description 05/05/2017 [facility] Leesa Martinez MD [facility] [address] [id number] Opioid overdose, accidental or unintenti onal, initial encounter (Primary Dx); - Encounter Miladys Phillips MD [address] [place] [id number] Aspiration pneumonia, unspecified aspira tion pneumonia type, unspecified laterality, unspecified part of lung (H); 05/12/2017 [facility] Stephany Farley MD [address] [place] [address] Encephalopathy; [address] Paroxysmal atrial fibrillati on (H); [place] Hyperlipidemia LDL goal <70; [id number] Acute left-sided low back pa in without sciatica; [phone] Unresponsivenes s Social History Tobacco Use Types Packs/Day Years Used Date Former Smoker Comments: quit 1984 Alcohol Use Standard Drinks/Week [...] Sign Reading Time Taken Comments Blood Pressure 126/65 05/12/2017 12:00 PM CDT Pulse 82 05/05/2017 5:23 PM CDT Temperature 36.4 ??C (97.6 ??F) 05/12/2017 12:00 PM CDT Respiratory Rate 18 05/12/2017 12:00 PM CDT Oxygen Saturation 95% 05/12/2017 12:00 PM CDT Inhaled Oxygen Concentration - - Weight 90.3 kg (199 lb 1.2 oz) 05/12/2017 4:00 AM CDT Height 170.2 cm (5' 7) 05/06/2017 9:00 AM CDT Body Mass Index 31.18 05/06/2017 9:00 AM CDT documented in this encounter Discharge Summaries Adrian Pleitez MD - 05/12/2017 3:12 PM CDT [facility] Hospitalist discharge note Date of Service (when I saw the patient): 05/12/2017 Assessment & Plan And discharge diagnoses Speedy Mcduffie is a 76 year old male who was admitted on 05/05/2017. I have followed him only today and therefore for me to do justice to a discharge summary Please follow the hospital progress notes I have met with patient and his daughter Pending work up: Sleep study as well as urology He will also follow-up with cardiology, primary care physician in [place] Speedy Mcduffie is a 76 year old male with a past medical history of Htn, CKD, atrial tachycardia, chronic back pain who was admitted on 05/05/2017 with encephalopathy thought due to opioid overdose. ?? Altered mental status/Acute toxic encephalopathy - resolved Patient found by daughter (Raquel, COAL BRIQUETTE MACHINE OPERATOR) after likely prolonged period of unresponsiveness and suspected aspiration. Airway was cleared by daughter, but patient was hypoxic in the 60s for what soundslike at least 40 minutes before oxygen was available. Patient responded to narcan and thus it was suspected that patient had an unintentional opioid overdose due in part to worsening of renal function and taking scheduled morphine 15mg ER BID with Ruby 7.5/325 1-1.5 tabs PRN q4-6 hours started the week DIRECTOR LIFE. Also had been taking gabapentin and flexeril. Was treated with a narcan drip in the ICU. MRI brain as discussed below. I have reduced the dose of narcotics upon discharge including morphine He should be given Narcan on hand upon seeing primary care physician Josseline care takers should be instructed on how to use it ? 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 Neurology was consulted on 05/10 and recommended starting eliquis if anticoagulation was going to be started in the future, possibly after addressing the AAA. Of note family is very concerned about any anticoagulation at this time with the AAA. ??Watch him and procedure can also be considered because of family's consideration about anticoagulation with antiplatelets ? Suspected Aspiration PNA: as above Daughter (COAL BRIQUETTE MACHINE OPERATOR) found patient with large amount of material coming out of mouth. CXR shows possible right upper lobe pneumonia, could be aspiration. Treated initially with Levaquin and Clindamycin. -He will take it until the ? Atrial fibrillation: had issues with tachy/dani here but documented afib. Cardiology started amiodarone on 05/09. patient in sinus rhythm on 05/10 afternoon. -continue amiodarone 400 mg BID x 7 days, then start 200 mg daily Amiodarone will be given long-term and he will follow-up with cardiology in a month ? Acute hypoxic respiratory failure: due to encephalopathy and aspiration pneumonia. Was on bipap in the ICU. Now resolved. ? DEJA on CKD stage 3--acute component appears resolved. Baseline creatinine about 1.3-1.4. Creatinine Date Value Ref Range Status 05/12/2017 1.55 (H) 0.66 - 1.25 mg/dL Final ] ? Lower back pain - had a recent fall with nondisplaced insufficiency type sacral fracture; he was seen by Ortho- conservative management recommended - had been managed by his PMD and DIRECTOR LIFE was on Morphine 15 mg po BID (daughter reported that in the past he was confused with Oxycontin),??Ruby 7/325 mg 1 tab po q4-6 h; he is also on scheduled Gabapentin and prn Flexeril -had a recent admission to [facility] from 04/28-04/30 for severe lower back pain when tapering Prednisone was added, 15mg x 3 days, then 10 mg x 3 days then 5 mg x 3 days with plans to be off as of 05/09 - Appreciate palliative consult to assist with pain control complicated patient with CKD and 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 Followed recommendation to schedule Tylenol and use PRN oxycodone 2.5mg q4 hours. Other considerations noted. Will continue gabapentin at this time as daughternoted significant improvement. Heating pad in use this morning helped. - Palliative did also recommend low-dose diclofenac while monitoring renal function. Not starting this initially given acute injury, however this could certainly be considered if renal function continues to do well. Appreciate palliative assistance. -will decrease prednisone to 5 mg daily starting 05/12 and plan for 3 more days then stop - Consulted PT/OT. ? HTN: DIRECTOR LIFE on Metoprolol which was dced with bradycardia. - Patient has been started on hydralazine and lisinopril. - monitor BP ? Dyslipidemia - resumed home atorvastatin ? AAA - US aorta on 04/27 showed 4.2X4.1 cm AAA, compared with prior US aorta in 12/2015 when it was 3.9X4.3 - follow up with Vascular surgery as outpatient. ? Possible JACKSON: daughter reports that he snores heavily and has episodes of apnea during sleep but he refused to have sleep studies until now - Patient agreeable to follow-up with sleep study on discharge. ?? Urinary retention: pt has a long history of shy bladder. Could also have retention from narcotics. -continue terazosin -will try to straight cath once more - after that will place dial and try voiding trial in one weekwith urology ??Sacral compression fractures Narcotic doses are reduced and lidocaine patch will be used Adrian Pleitez Interval History Creatinine needs to be followed up in CBC needs to be followed up -Data reviewed today: I reviewed all new labs and imaging results over the last 24 hours. Physical Exam Temp: 97.6 ??F (36.4 ??C) Temp src: Oral BP: 126/65 Heart Rate: 82 Resp: 18 SpO2: 95 % O2 Device: None (Room air) Vitals: 05/10/17 0500 05/11/17 0617 05/12/17 0400 Weight: 91.5 kg (201 lb 11.5 oz) 89.9 kg (198 lb 3.1 oz) 90.3 kg (199 lb 1.2 oz) Vital Signs with Ranges Temp: [97.2 ??F (36.2 ??C)-98.5 ??F (36.9 ??C)] 97.6 ??F (36.4 ??C) Heart Rate: [69-89] 82 Resp: [16-18] 18 BP: (113-151)/(65-96) 126/65 SpO2: [94 %-97 %] 95 % I/O last 3 completed shifts: In: 1660 [P.O.:560; I.V.:1100] Out: 1900 [Urine:1900] Constitutional: Alert and oriented Respiratory: No rales Soft nontender On GI exam Skin/Integumen: No rash Other: Back pain Medications ??? 0.45% sodium chloride + KCl 20 mEq/L 100 mL/hr at 05/12/17 0800 ??? famotidine 20 mg Oral Daily ??? [START ON 05/17/2017] amiodarone 200 mg Oral Daily ??? lidocaine 3 patch Transdermal Q24H ??? lidocaine Transdermal Q24h ??? lidocaine Transdermal Q8H ??? predniSONE 5 mg Oral Daily ??? isosorbide mononitrate 60 mg Oral Daily ??? amiodarone 400 mg Oral BID ??? aspirin chewable tablet 81 mg 81 mg Oral Daily ??? atorvastatin (LIPITOR) tablet 40 mg 40 mg Oral Daily ??? terazosin (HYTRIN) capsule 5 mg 5 mg Oral At Bedtime ??? lisinopril 10 mg Oral Daily ??? acetaminophen 1,000 mg Oral TID ??? hydrALAZINE 25 mg Oral Q8H CISCO ??? gabapentin 300 mg Oral TID ??? sodium chloride (PF) 3 mL Intracatheter Q8H ??? heparin 5,000 Units Subcutaneous Q12H Data Recent Labs Lab 05/12/17 0852 05/11/17 0717 05/10/17 0743 05/09/17 0727 05/08/17 0500 05/07/17 0450 05/06/17 0445 05/05/17 1529 WBC -- -- 7.7 9.5 12.7* 11.9* -- 14.4* -- -- HGB -- -- 12.7* 12.9* 13.0* 12.5* -- 12.5* -- -- MCV -- -- 95 94 96 99 -- 100 -- -- PLT -- 169 168 185 162 150 -- 135* -- -- NA 144 144 144 142 140 143 -- 143 < > -- POTASSIUM 4.0 3.7 3.5 3.5 4.1 4.8 -- 4.5 < > -- CHLORIDE 112* 112* 111* 110* 109 114* -- 115* < > -- CO2 22 23 23 21 20 20 -- 20 < > -- BUN 25 25 24 22 19 25 -- 39* < > -- CR 1.55* 1.56* 1.49* 1.44* 1.24 1.52* -- 1.79* < > -- ANIONGAP 10 9 10 11 11 9 -- 8 < > -- BALDEMAR 8.1* 8.5 8.6 9.1 8.8 8.8 < > 7.8* < > -- GLC 111* 94 97 105* 106* 130* -- 129* < > -- ALBUMIN -- -- -- -- -- 2.6* -- 2.6* -- -- PROTTOTAL -- -- -- -- -- 6.2* -- 6.0* -- -- BILITOTAL -- -- -- -- -- 0.5 -- 0.6 -- -- ALKPHOS -- -- -- -- -- 156* -- 144 -- -- ALT -- -- -- -- -- 34 -- 33 -- -- AST -- -- -- -- -- 46* -- 57* -- -- TROPONIN -- -- -- -- -- -- -- -- -- 0.02 < > = values in this interval not displayed. No results found for this or any previous visit (from the past 24 hour(s)). Home physical therapy, occupational therapy, speech therapy will be used documented in this encounter Discharge Instructions Discharge InstructionsOlive Mendes LSW - 05/12/2017 11:10 AM CDT [facility]: [phone]. documented in this encounter Medications at Time of Discharge Medication Sig Dispensed Refills Start Date End Date atorvastatin (LIPITOR) 40 Take 1 tablet (40 30 tablet 0 MG tabletIndications: mg) by mouth daily Hyperlipidemia LDL goal <70, Acute left-sided low back pain without sciatica levofloxacin (LEVAQUIN) Take 1 tablet (500 4 tablet 0 04/1905/19/2017 500 MG tabletIndications: mg) by mouth daily Aspiration pneumonia, for 7 days unspecified aspiration pneumonia type, unspecified laterality, unspecified part of lung (H) amiodarone Take 1 tablet (200 60 tablet 0 05/17/20172017 (PACERONE/CODARONE) 200 MG mg) by mouth daily tabletIndications: Paroxysmal atrial fibrillation (H) amiodarone 400 MG TABS Take 400 mg by 60 tablet 0 7 11/10/2017 mouth 2 times daily ASPIRIN PO Take 81 mg by 0 11/15/2017 mouth daily ATORVASTATIN CALCIUM PO Take 40 mg by 0 11/10/2017 mouth daily clindamycin (CLEOCIN) 300 Take 1 capsule 12 capsule 0 201611/10/2017 MG capsuleIndications: (300 mg) by mouth Aspiration pneumonia, 3 times daily unspecified aspiration pneumonia type, unspecified laterality, unspecified part of lung (H) CYCLOBENZAPRINE HCL PO Take 10 mg by 0 11/10/2017 mouth 2 times daily as needed diclofenac (VOLTAREN) 1 % Place 2 g onto the 1 Tube 0 11/10/2017 GEL topical skin 4 times daily gelIndications: Acute as needed for left-sided low back pain moderate pain without sciatica famotidine (PEPCID) 20 MG Take 1 tablet (20 60 tablet 0 11/10/2017 tabletIndications: mg) by mouth daily Aspiration pneumonia, unspecified aspiration pneumonia type, unspecified laterality, unspecified part of lung (H), Acute left-sided low back pain without sciatica GABAPENTIN PO Take 300-900 mg by 0 mouth daily as needed HYDROcodone-acetaminophen Take 1 tablet by 0 04/1911/10/2017 (NORCO) 7.5-325 MG per mouth every 8 tablet hours as needed for moderate to severe pain isosorbide mononitrate Take 1 tablet (60 30 tablet 0 201611/10/2017 (IMDUR) 60 MG 24 hr mg) by mouth daily tabletIndications: Paroxysmal atrial fibrillation (H) METOPROLOL TARTRATE PO Take 50 mg by 0 11/05/2018 mouth 2 times daily. PREDNISONE PO Filled on 04/30/17. 0 Take 15 mg x3 days; 10 mg x3 days. And 5 mg x3 days. TERAZOSIN HCL PO Take 5 mg by mouth 0 11/05/2018 At Bedtime documented as of this encounter Progress Notes Joaquina Acosta RN - 05/12/2017 3:42 PM CDT 1800: Spoke with MD Pleitez regarding family's concern that d/c meds and home meds were not fully reconciled on d/c. Concerns from family included: ATB therapy that interact with meds (amioderione/kidney fx), no home continuation of in hospital lisinopril, restart of DIRECTOR LIFE metoprolol (had been advised against rate slowing agents by cardiology), restart of DIRECTOR LIFE flexeril and unclear amiodarone plan. states that she spoke to the outpatient pharmacist and based on creatinine drawn today at 1.5 lowered dose of ATB tx and shortened therapy for both agents (oral Levaquin and cleocin) so had addressed the concerned interaction. She felt that as far as the lisinopril it was best to restart it after follow up on 05/15 with another creatinine check with PCP. asked for family to hold metoprolol in laureen 05/12 and am 05/13 and call cardiology clinic to clarify plan for beta gauri therapy. Call placed to pt's daughter, Raquel,@ 1815: -Gave her information regarding ATB therapy changes and she sated she had lower rx's from pharmacy. -Clarified the dosing on amiodarone - pt is to receive 400mg 2x a day for 3.5 more days then decrease dose to 200mg daily starting Thursday 05/17. Pills were dispensed in bottle that stated 200mg daily. -Pt and family will elect to not take flexeril in light of recent hospitalization events. -Raquel given phone # to [facility] and names of last 2 providers seen. -Provided information on creatinine and GFR lab values as well as last administered doses of PRN metoprolol (05/09), PO metoprolol (05/07 - 1/ DIRECTOR LIFE dose) and daily lisinopril (05/12) during hospital stay. - Raquel indicated that she would follow up in am with cardiology service regarding medication changes. Olive Mendes LSW - 05/12/2017 11:00 AM CDT Sw Progress Note Chart Reviewed, Pt discussed in Interdisciplinary Rounds. Pt anticipated discharge to home today with family pending medical clearance. Intervention: SW met with pt's daughter, Raquel to discuss concerns with hospitalization and plans for discharge home. Daughter recognizes that TCU has been suggested but pt and other family continue to want to discharge home. CC and SW discussed with daughter the admission Process to TCU from home incase pt would change his mind once home. Raquel indicates that she has located a hospital bed for rent near [place] and has made arrangements for delivery today. SW notified IA and hospitalist to meet with daughter.per request. CC made referral to [place] [facility] per request. Pt's family has used this agency previously. Team Members notified: Hospitalist, RN, CC, CORPORATE COMPLIANCE MANAGER Plan: Discharge home today with family and home care services through [facility]. Sanjuanita Ponce RN - 05/12/2017 9:44 AM CDT Met w/ pt's dtr Raquel and ADRIANO to discuss dc planning. Raquel has some concerns about pt going home rather than TCU but her sister Chastity is on FMLA and intends to stay at home to care for him. Raquel is a [facility] ICU nurse and healthcare architect at [employer]. She has been on FMLA but intends to go back to work. She has stressed to Chastity that pt requires 24h care right now and hospital staff will do this as well when she arrives. They may decide to use additional private pay home care through [facility] if needed. There are additional family members that all live on pt's acreage that can help. Pt is ambulating better today and therapy is recommending OP PT/OT/WARP TIER if not going to TCU. His pain level is still high with ambulation so he would benefit from home care initially as he will not be going out except to his appts. He would need an RN as well. Raquel would prefer to use home care through the [facility] as it is local and they have used it before. Raquel has contacted a hospital rental company and intends to rent a hospital bed for a while at home. She states this will be delivered today and she is taking care of those arrangements. Also discussed multiple f/u appts needed. She would like to stay within the [facility] system for vascular, cardiac, and sleep study. Contacted [place] [facility] intake [phone] and spoke to Lynn. They would be able to see pt tomorrow at home. Faxed [phone] face sheet and H&P. Will fax orders when completed. Contacted [facility] to make f/u appt with Dr Lugo. Appt made for ThuJun 19 at 2:15 to discuss AC in light of AAA. Spoke w/ Natasha Iraheta HOME RESTORATION SERVICE SUPERVISOR [facility]. They do not need to see pt in f/u as strokes likely more related to hypoxia than AF and cardiology will be addressing AF issue. Contacted pt's PCP Dr Celina Coley at [facility]. Appt made for 05/15 at 10:00. Will fax handoff when dc orders complete. Contacted [facility] and appt made for ThuJun [address] Taylor to discuss sleep study. Await Dr Pleitez for further orders for vascular and urology f/u timing. Discussed transportation with dtr Raquel and bedside RN. 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 Discussed difficulty of stepping up into large SUV and that lower level of car would be better. Pt transferred with min assist of RN. Raquel will arrange for sister to bring car instead. They also will have golf cart to get from cart to house and always have 2 people for pt to get to his appts. Addendum: Discussed w/ Dr Pleitez. She has spoken with pt/dtr Pt will not have vascular follow up appt at this time. He will have urology f/u through his PCP (seeing her in 3 days). Obtained home care and sleep study orders. Updated pt/dtr that his medication deductible is $400 which is the hurt of one month of NOAC such as Eliquis. After that his co pay for Eliquis would be about $80/month. Pt is not discharging on NOAC at this time but they can use this info when they f/u with Dr Lugo to discuss anticoagulation. Faxed orders to [facility] and left message with Lynn to call Raquel at [phone] toschedule appts. Sent [facility] handoff. Faviochayo Berrios Mattie - 05/11/2017 4:28 PM CDT SP[facility] Progress Note [facility], Palliative Team PRIMARY FOCUS: ? Symptom/pain management ?? Emotional/spiritual/confucianist distress ILLNESS CIRCUMSTANCES: ?? Reviewed documentation. Reflective conversation shared with Ed, which integrated elements of illnessand family narratives.? Context of Serious Illness/Symptom(s) - Pt overdosed on opioid pain relievers accidentally upon treatment for a broken tailbone. ?? Resources for Support - Strong family support from and two daughters, along with a brother who is a [employer] trust clerk DISTRESS: ? Emotional/Existential/Relational Distress - Pt is notably thankful for surviving this overdose. He sees that he is not finished with this life, and he is beginning to look toward how best to spend his remaining time. 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 ?? Spiritual/Religion Distress - None discussed. Pt surprisingly comfortable with his reality of surviving. ?? Social/Cultural/Economic Distress - None discussed? SPIRITUAL/BUDDHISM (Coping): ? Advent/Mariah - Anabaptist. Pt did not particularly identify his own mariah and spoke more of his brother's. ?? Spiritual Practice(s) - Not discussed. ?? Emotional/Existential/Relational Connections - Strong family connections. GOALS OF CARE: ?? Goals of Care - Pt hopes to discharge soon to continue healing from the broken tailbone, but withdifferent pain medications. ?? Meaning/Sense-Making - Not discussed. PLAN: will follow-up in 2 or so days if pt has not discharged. ? Mattie Berrios M.Div. Breakfast Hostess Pager [phone] Kassy Go APRN SPECIAL POLICE - 05/11/2017 3:55 PM CDT [facility] Palliative Care Progress Note Speedy Mcduffie Date of Admission: 05/05/2017 Date of Service (when I saw the patient): 05/11/2017 Assessment & Plan Speedy Mcduffie is a 76 year old male with PMH significant for HTN, HLD, AAA, CKD stage III, chroniclow back pain, and recent sustained fall with sacral fracture being managed medically, who presents unresponsive. Encephalopathy was thought to be 2/2 unintentional opioid overdose, reversed with narcan. Neurology was consulted, now signed off. He is noted to have acute respiratory failure likely 2/2 aspiration PNA, treated with abx. He is now stable on RA. We are following for pain control; initial consult completed on 05/08. Symptoms/Recommendations 1. Low back pain, radiating to left hip and down posterior left leg. 2/2 sustained fall with sacral fracture, which occurred on 04/28. Ortho recommended conservative management, counseled pt that pain should improve in 4-6 weeks. Pt had unintentional overdose of opioids on admission, reversed with narcan. Pain persists, primarily with activity, tolerable at rest. Getting adequate sleep at night. Getting adequate relief from PRN oxycodone. CrCl generally stable. -Continue APAP 1g PO TID -Continue gabapentin 300mg PO TID (we had previously recommended discontinuing this, but pt's dtr reported that it works well; pt undecided today) -Continue oxycodone 5mg PO Q4hrs PRN -Add lidoderm patch (3) to low back/left sacrum/left leg -Add diclofenac gel topical to low back/left sacrum/left leg 4x daily PRN (hold off on oral dosing 2/2 CKD and rising creat) -Continue PT/OT, premedicate activity with oxycodone 60 mins before activity -Pt declining discharge to TCU, would like to go home, agreeable to home care with PT/OT Support/Coping - and daughters not present for today's visit Decisional Support, Goals of Care, Counseling & Coordination Decisional Capacity Intact? -Yes Health Care Directive on File? -No, pt working on one at home with his family Code Status/Resuscitation Preferences? -Full, not addressed Case reviewed with bedside nursing staff. Thank you for involving us in the care of this patient and family. We will continue to follow. Please do not hesitate to contact me with questions or concerns or the on-call provider for our team if evening or weekend. Milana Go APRN, [facility] Palliative Medicine Pager [phone] Attestation: Total time on the floor involved in the patient's care: 35 minutes Total time spent in counseling/care coordination: >50% Interval History Mentation overall improved. Working with PT, continues to have quite a bit of pain with activity, reasonable pain control at rest. Medications Current Facility-Administered Medications Ordered in Epic Medication Dose Route Frequency Last Rate Last Dose ??? famotidine (PEPCID) tablet 20 mg 20 mg Oral Daily 20 mg at 05/11/17 1335 ??? [START ON 05/17/2017] amiodarone (PACERONE/CODARONE) tablet 200 mg 200 mg Oral Daily ??? lidocaine (LIDODERM) 5 % Patch 3 patch 3 patch Transdermal Q24H ??? lidocaine (LIDODERM) patch REMOVAL Transdermal Q24h ??? lidocaine (LIDODERM) patch in PLACE Transdermal Q8H ??? [START ON 05/12/2017] predniSONE (DELTASONE) tablet 5 mg 5 mg Oral Daily ??? diclofenac (VOLTAREN) 1 % topical gel 2 g 2 g Transdermal 4x Daily PRN ??? isosorbide mononitrate (IMDUR) 24 hr tablet 60 mg 60 mg Oral Daily 60 mg at 05/11/17921 ??? sodium chloride (PF) 0.9% PF flush 10 mL 10 mL Intracatheter Q8H 10 mL at 05/09/17 1335 ??? amiodarone (PACERONE/CODARONE) tablet 400 mg 400 mg Oral BID 400 mg at 05/11/17920 ??? ertapenem (INVanz) 1 g vial to attach to NS 100 mL bag 1 g Intravenous Q24H 1 g at 05/10/17 1559 ??? oxyCODONE (ROXICODONE) IR tablet 5 mg 5 mg Oral Q4H PRN 5 mg at 05/11/17 1335 ??? aspirin chewable tablet 81 mg 81 mg Oral Daily 81 mg at 05/11/17920 ??? atorvastatin (LIPITOR) tablet 40 mg 40 mg Oral Daily 40 mg at 05/11/17921 ??? terazosin (HYTRIN) capsule 5 mg 5 mg Oral At Bedtime 5 mg at 05/10/176 ??? naloxone (NARCAN) injection 0.1-0.4 mg 0.1-0.4 mg Intravenous Q2 Min PRN ??? lisinopril (PRINIVIL/ZESTRIL) tablet 10 mg 10 mg Oral Daily 10 mg at 05/11/17920 ??? 0.45% sodium chloride + KCl 20 mEq/L infusion Intravenous Continuous 100 mL/hr at 05/11/17 0931 ??? acetaminophen (TYLENOL) tablet 1,000 mg 1,000 mg Oral TID 1,000 mg at 05/11/17920 ??? metoprolol (LOPRESSOR) injection 5 mg 5 mg Intravenous Q4H PRN 5 mg at 05/09/17 0112 ??? hydrALAZINE (APRESOLINE) injection 10-20 mg 10-20 mg Intravenous Q6H PRN 20 mg at 05/08/17 1029 ??? hydrALAZINE (APRESOLINE) tablet 25 mg 25 mg Oral Q8H CISCO 25 mg at 05/11/17 1335 ??? albuterol neb solution 2.5 mg 2.5 mg Nebulization Q6H PRN ??? ipratropium - albuterol 0.5 mg/2.5 mg/3 mL (DUONEB) neb solution 3 mL 3 mL Nebulization Q4H PRN 3 mL at 05/07/17 0206 ??? gabapentin (NEURONTIN) capsule 300 mg 300 mg Oral TID 300 mg at 05/11/17 0922 ??? lidocaine 1 % 1 mL 1 mL Other Q1H PRN ??? lidocaine (LMX4) cream Topical Q1H PRN ??? sodium chloride (PF) 0.9% PF flush 3 mL 3 mL Intracatheter Q1H PRN ??? sodium chloride (PF) 0.9% PF flush 3 mL 3 mL Intracatheter Q8H 3 mL at 05/09/17 1737 ??? heparin sodium PF injection 5,000 Units 5,000 Units Subcutaneous Q12H 5,000 Units at 05/11/17 0931 ??? senna-docusate (SENOKOT-S;PERICOLACE) 8.6-50 MG per tablet 1-2 tablet 1-2 tablet Oral BID PRN ??? magnesium hydroxide (MILK OF MAGNESIA) suspension 30 mL 30 mL Oral Daily PRN ??? ondansetron (ZOFRAN-ODT) ODT tab 4 mg 4 mg Oral Q6H PRN Or ??? ondansetron (ZOFRAN) injection 4 mg 4 mg Intravenous Q6H PRN ??? hypromellose-dextran (ARTIFICAL TEARS) ophthalmic solution 1 drop 1 drop Both Eyes Q1H PRN No current Epic-ordered outpatient prescriptions on file. Physical Exam Temp: 97.9 ??F (36.6 ??C) Temp src: Oral BP: 114/57 Heart Rate: 80 Resp: 16 SpO2: 94 % O2 Device: None (Room air) Vitals: 05/09/17 0607 05/10/17 0500 05/11/17 0617 Weight: 92 kg (202 lb 13.2 oz) 91.5 kg (201 lb 11.5 oz) 89.9 kg (198 lb 3.1 oz) CONSTITUTIONAL: Chronically ill elderly man seen lying in bed in NAD, A&Ox3. Calm and cooperative. HEENT: NCAT RESPIRATORY: NL respiratory effort on RA MUSCULOSKELETAL: Moving freely in bed SKIN: Warm and intact. No concerning lesions or rashes on exposed skin surfaces NEUROLOGIC: Appropriately responsive during interview PSYCH: Affect engaged Data Results for orders placed or performed during the hospital encounter of 05/05/17 (from the past 24 hour(s)) Platelet count Result Value Ref Range Platelet Count 169 150 - 450 10e9/L Basic metabolic panel Result Value Ref Range Sodium 144 133 - 144 mmol/L Potassium 3.7 3.4 - 5.3 mmol/L Chloride 112 (H) 94 - 109 mmol/L Carbon Dioxide 23 20 - 32 mmol/L Anion Gap 9 3 - 14 mmol/L Glucose 94 70 - 99 mg/dL Urea Nitrogen 25 7 - 30 mg/dL Creatinine 1.56 (H) 0.66 - 1.25 mg/dL GFR Estimate 44 (L) >60 mL/min/1.7m2 GFR Estimate If Black 53 (L) >60 mL/min/1.7m2 Calcium 8.5 8.5 - 10.1 mg/dL Lipid Profile Result Value Ref Range Cholesterol 128 <200 mg/dL Triglycerides 164 (H) <150 mg/dL HDL Cholesterol 44 >39 mg/dL LDL Cholesterol Calculated 51 <100 mg/dL Non HDL Cholesterol 84 <130 mg/dL Hemoglobin A1c Result Value Ref Range Hemoglobin A1C 5.6 4.3 - 6.0 % Olive Mendes LSW - 05/11/2017 12:20 PM CDT Care Transition Initial Assessment - Reason For Consult: discharge planning Met with: Patient and Family Active Problems: Unresponsiveness DATA Lives With: spouse. Pt's two daughters live close by. They all live on a 12 acre block of land and are neighbors. Pt' daughterRaquel is an COAL BRIQUET[employer] MACHINE OPERATOR and daughter Chastity is a airplane pilot chief. Chastity states she is currently on FMLA. Living Arrangements: house Description of Support System: Supportive, Involved, Other (see comments) (pt's daughters and pt alllive on 12 acres ) Who is your support system?: , Children Support Assessment: Adequate family and caregiver support. Family is close and involved. 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 Pt and family would prefer to manage his care at home. Family is very involved and all live close proximity to one anther. ADRIANO spoke with jose Chastity this am and at this time, they do not want any TCU referrals sent. PLAN Financial costs for the patient includes N/A Patient Goals and Preferences: Pt and family prefer that pt return to his home under the family's care. Patient anticipates discharging to: home if possible. Nikhil Rodriguez, - 05/11/2017 10:51 AM CDT [facility] Hospitalist Progress Note Nikhil Rodriguez D.O. Date of service (Date I saw patient): 05/11/2017 Assessment & Plan Speedy Mcduffie is a 76 year old male with a past medical history of Htn, CKD, atrial tachycardia, chronic back pain who was admitted on 05/05/2017 with encephalopathy thought due to opioid overdose. Altered mental status/Acute toxic encephalopathy - resolved Patient found by daughter (Raquel, CO[employer] B[employer]QU[employer] MACHINE OPERATOR) after likely prolonged period of unresponsiveness and suspected aspiration. Airway was cleared by daughter, but patient was hypoxic in the 60s for what soundslike at least 40 minutes before oxygen was available. Patient responded to narcan and thus it was suspected that patient had an unintentional opioid overdose due in part to worsening of renal function and taking scheduled morphine 15mg ER BID with Ruby 7.5/325 1-1.5 tabs PRN q4-6 hours started the week DIRECTOR [employer]. Also had been taking gabapentin and flexeril. Was treated with a narcan drip in the ICU. MRI brain as discussed below. - Have discontinued PRN ativan as daughter was concerned about increased dosing causing sedation. Will monitor and if needed, discuss with her first and consider 1x dosing. -dosing of other narcotics, sedating meds as discussed in back pain section below ?? 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 Neurology was consulted on 05/10 and recommended starting eliquis if anticoagulation was going to be started in the future, possibly after addressing the AAA. Of note family is very concerned about any anticoagulation at this time with the AAA. ? Suspected Aspiration PNA: as above Daughter ([employer] MACHINE OPERATOR) found patient with large amount of material coming out of mouth. CXR shows possible right upper lobe pneumonia, could be aspiration. Treated initially with Levaquin and Clindamycin. - continue Invanz started 05/09 - will complete 7 days of therapy on 05/11 - diet advanced by speech ? Atrial fibrillation: had issues with tachy/dani here but documented afib. Cardiology started amiodarone on 05/09. patient in sinus rhythm on 05/10 afternoon. -continue amiodarone 400 mg BID x 7 days, then start 200 mg daily ? Acute hypoxic respiratory failure: due to encephalopathy and aspiration pneumonia. Was on bipap in the ICU. Now resolved. ? DEJA on CKD stage 3--acute component appears resolved. Baseline creatinine about 1.3-1.4. - check creatinine again tomorrow - has trended up slightly - strict I/O, daily weights. Renally dose meds.? Lower back pain - had a recent fall with nondisplaced insufficiency type sacral fracture; he was seen by Ortho- conservative management recommended - had been managed by his PMD and DIRECTOR LIFE was on Morphine 15 mg po BID (daughter reported that in the past he was confused with Oxycontin),??Ruby 7/325 mg 1 tab po q4-6 h; he is also on scheduled Gabapentin and prn Flexeril -had a recent admission to [facility] from 04/28-04/30 for severe lower back pain when tapering Prednisone was added, 15mg x 3 days, then 10 mg x 3 days then 5 mg x 3 days with plans to be off as of 05/09 - Appreciate palliative consult to assist with pain control complicated patient with CKD and 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 Followed recommendation to schedule Tylenol and use PRN oxycodone 2.5mg q4 hours. Other considerations noted. Will continue gabapentin at this time as daughternoted significant improvement. Heating pad in use this morning helped. - Palliative did also recommend low-dose diclofenac while monitoring renal function. Not starting this initially given acute injury, however this could certainly be considered if renal function continues to do well. Appreciate palliative assistance. -will decrease prednisone to 5 mg daily starting 05/12 and plan for 3 more days then stop - Consulted PT/OT. ? HTN: DIRECTOR LIFE on Metoprolol which was dced with bradycardia. - Patient has been started on hydralazine and lisinopril. - monitor BP ? Dyslipidemia - resumed home atorvastatin ? AAA - US aorta on 04/27 showed 4.2X4.1 cm AAA, compared with prior US aorta in 12/2015 when it was 3.9X4.3 - follow up with Vascular surgery as outpatient. ? Possible JACKSON: daughter reports that he snores heavily and has episodes of apnea during sleep but he refused to have sleep studies until now - Patient agreeable to follow-up with sleep study on discharge. Urinary retention: pt has a long history of shy bladder. Could also have retention from narcotics. -continue terazosin -will try to straight cath once more - after that will place dial and try voiding trial in one weekwith urology DVT Prophylaxis: SCDs Code Status: Full Disposition: possible dc on Thursday. Pt is strongly wanted to dc home but I have asked him to consider TCU which he will discus with his family. Therapies have rec TCU. Interval History Discussed with patient and one of his daughters at bedside. He is much better today than the past 1-2 days. He is clear mentally and is able to carry on a conversation, recalling details of the past which was not possible just two days ago. He continues to have back pain which is essentially unchanged. He did note getting some improvement with prednisone at 20 mg daily. He is weak from the sacral fracture and having difficult with ambulation. He also has urinary retention and has needed to be straight cathed 2-3 times already. He is tolerating a diet now, still having a cough at times. No chest pain and no shortness of breath. The patient is really wanting to dc to home from the hospital. We discussed the reasoning behind going to TCU. He will work more with therapy and talk with his family. -Data reviewed today: I reviewed all new labs and imaging over the last 24 hours. I personally reviewed no images or EKG's today. Physical Exam Heart Rate: 86, Blood pressure 155/82, pulse 82, temperature 98 ??F (36.7 ??C), temperature source Oral, resp. rate 16, height 1.702 m (5' 7), weight 89.9 kg (198 lb 3.1 oz), SpO2 95 %. Vitals: 05/09/17 0607 05/10/17 0500 05/11/17 0617 Weight: 92 kg (202 lb 13.2 oz) 91.5 kg (201 lb 11.5 oz) 89.9 kg (198 lb 3.1 oz) Vital Signs with Ranges Temp: [97.7 ??F (36.5 ??C)-98 ??F (36.7 ??C)] 98 ??F (36.7 ??C) Heart Rate: [68-104] 86 Resp: [14-16] 16 BP: (118-171)/(72-96) 155/82 SpO2: [95 %-98 %] 95 % I/O's Last 24 hours I/O last 3 completed shifts: In: 2940 [P.O.:740; I.V.:2200] Out: 1650 [Urine:1650] Constitutional: awake, alert, cooperative Respiratory: Clear to auscultation bilaterally, no crackles or wheezing noted. Good air exchange. Cardiovascular: Regular rate and rhythm. No murmur, rub or gallop noted. GI: Positive bowel sounds, soft, non-distended, non-tender. No masses or organomegaly noted. Musculoskeletal: moving all extremities Neurologic: Awake, alert and oriented to name, place and time. Cranial nerves II-XII are grossly intact. Lymphatic: No edema noted Medications All medications were reviewed. ??? 0.45% sodium chloride + KCl 20 mEq/L 100 mL/hr at 05/11/17 0931 ??? famotidine 20 mg Oral Daily ??? isosorbide mononitrate 60 mg Oral Daily ??? sodium chloride (PF) 10 mL Intracatheter Q8H ??? amiodarone 400 mg Oral BID ??? ertapenem (INVanz) IV 1 g Intravenous Q24H ??? aspirin chewable tablet 81 mg 81 mg Oral Daily ??? atorvastatin (LIPITOR) tablet 40 mg 40 mg Oral Daily ??? terazosin (HYTRIN) capsule 5 mg 5 mg Oral At Bedtime ??? lisinopril 10 mg Oral Daily ??? acetaminophen 1,000 mg Oral TID ??? hydrALAZINE 25 mg Oral Q8H CISCO ??? predniSONE 10 mg Oral Daily ??? gabapentin 300 mg Oral TID ??? sodium chloride (PF) 3 mL Intracatheter Q8H ??? heparin 5,000 Units Subcutaneous Q12H Data Recent Labs Lab 05/11/17 0717 05/10/17 0743 05/09/17 0727 05/08/17 0500 05/07/17 0450 05/06/17 0445 05/05/17 1529 WBC -- 7.7 9.5 12.7* 11.9* -- 14.4* -- -- HGB -- 12.7* 12.9* 13.0* 12.5* -- 12.5* -- -- MCV -- 95 94 96 99 -- 100 -- -- PLT 169 168 185 162 150 -- 135* -- -- NA 144 144 142 140 143 -- 143 < > -- POTASSIUM 3.7 3.5 3.5 4.1 4.8 -- 4.5 < > -- CHLORIDE 112* 111* 110* 109 114* -- 115* < > -- CO2 23 23 21 20 20 -- 20 < > -- BUN 25 24 22 19 25 -- 39* < > -- CR 1.56* 1.49* 1.44* 1.24 1.52* -- 1.79* < > -- ANIONGAP 9 10 11 11 9 -- 8 < > -- BALDEMAR 8.5 8.6 9.1 8.8 8.8 < > 7.8* < > -- GLC 94 97 105* 106* 130* -- 129* < > -- ALBUMIN -- -- -- -- 2.6* -- 2.6* -- -- PROTTOTAL -- -- -- -- 6.2* -- 6.0* -- -- BILITOTAL -- -- -- -- 0.5 -- 0.6 -- -- ALKPHOS -- -- -- -- 156* -- 144 -- -- ALT -- -- -- -- 34 -- 33 -- -- AST -- -- -- -- 46* -- 57* -- -- TROPONIN -- -- -- -- -- -- -- -- 0.02 < > = values in this interval not displayed. No results found for this or any previous visit (from the past 24 hour(s)). Taran Lugo MD - 05/11/2017 10:10 AM CDT Cardiac Electrophysiology Progress Note Assessment and Plan: Unresponsiveness due accidentally opoid overdose noted to have infarct in left hippocampal formation and cortex in setting of new diagnosis of AF/AFL with RVR can't r/o that cardioembolic event was not a contributing factor. Discussed with Neurology, family and pt regarding starting OAC such as Eliquis 5 mg bid. Continue with amio po loading for now outpt appt will be scheduled to discuss senior living option in light of AAA Interval History: doing well; no cp, sob, n/v/d, or abd pain. Review of Systems: As per subjective, otherwise 5 systems reviewed and negative. Physical Exam: Blood pressure 155/82, pulse 82, temperature 98 ??F (36.7 ??C), temperature source Oral, resp. rate 16, height 1.702 m (5' 7), weight 89.9 kg (198 lb 3.1 oz), SpO2 95 %. Intake/Output Summary (Last 24 hours) at 05/11/17 1010 Last data filed at 05/11/17 0928 Gross per 24 hour Intake 2960 ml Output 1650 ml Net 1310 ml Constitutional: NAD Skin: Warm and dry Head: Nontraumatic Neck: Supple, symmetrical, trachea midline, no adenopathy, thyroid symmetric, not enlarged and no tenderness, skin normal Lungs: normal Cardiovascular: Normal apical impulse, regular rate and rhythm, normal S1 and S2, no S3 or S4, and no murmur noted Abdomen: Benign Extremities and Back: Symmetric, no curvature, spinous processes are non-tender on palpation, paraspinous muscles are non-tender on palpation, no costal vertebral tenderness Neurological: Grossly nonfocal Medications: ??? famotidine 20 mg Oral Daily ??? isosorbide mononitrate 60 mg Oral Daily ??? sodium chloride (PF) 10 mL Intracatheter Q8H ??? amiodarone 400 mg Oral BID ??? ertapenem (INVanz) IV 1 g Intravenous Q24H ??? aspirin chewable tablet 81 mg 81 mg Oral Daily ??? atorvastatin (LIPITOR) tablet 40 mg 40 mg Oral Daily ??? terazosin (HYTRIN) capsule 5 mg 5 mg Oral At Bedtime ??? lisinopril 10 mg Oral Daily ??? acetaminophen 1,000 mg Oral TID ??? hydrALAZINE 25 mg Oral Q8H CISCO ??? predniSONE 10 mg Oral Daily ??? gabapentin 300 mg Oral TID ??? sodium chloride (PF) 3 mL Intracatheter Q8H ??? heparin 5,000 Units Subcutaneous Q12H Office Visit on 10/05/2012 Component Date Value Ref Range Status ??? Uric Acid 10/05/2012 7.1 3.5 - 8.5 mg/dL Final ??? WBC 10/05/2012 7.8 4.0 - 11.0 10e9/L Final ??? RBC Count 10/05/2012 4.45 4.4 - 5.9 10e12/L Final ??? Hemoglobin 10/05/2012 14.6 13.3 - 17.7 g/dL Final ??? Hematocrit 10/05/2012 43.2 40.0 - 53.0 % Final ??? MCV 10/05/2012 97 78 - 100 fl Final ??? MCH 10/05/2012 32.8 26.5 - 33.0 pg Final ??? MCHC 10/05/2012 33.8 31.5 - 36.5 g/dL Final ??? RDW 10/05/2012 12.9 10.0 - 15.0 % Final ??? Platelet Count 10/05/2012 152 150 - 450 10e9/L Final ??? Diff Method 10/05/2012 Automated Method Final ??? % Neutrophils 10/05/2012 62.1 40 - 75 % Final ??? % Lymphocytes 10/05/2012 18.9* 20 - 48 % Final ??? % Monocytes 10/05/2012 13.4* 0 - 12 % Final ??? % Eosinophils 10/05/2012 5.2 0 - 6 % Final ??? % Basophils 10/05/2012 0.4 0 - 2 % Final ??? Absolute Neutrophil 10/05/2012 4.9 1.6 - 8.3 10e9/L Final ??? Absolute Lymphocytes 10/05/2012 1.5 0.8 - 5.3 10e9/L Final ??? Absolute Monocytes 10/05/2012 1.1 0.0 - 1.3 10e9/L Final ??? Absolute Eosinophils 10/05/2012 0.4 0.0 - 0.7 10e9/L Final ??? Absolute Basophils 10/05/2012 0.0 0.0 - 0.2 10e9/L Final ??? Sodium 10/05/2012 140 133 - 144 mmol/L Final ??? Potassium 10/05/2012 4.8 3.4 - 5.3 mmol/L Final ??? Chloride 10/05/2012 103 94 - 109 mmol/L Final ??? Carbon Dioxide 10/05/2012 25 20 - 32 mmol/L Final ??? Anion Gap 10/05/2012 12 6 - 17 mmol/L Final ??? Glucose 10/05/2012 108* 60 - 99 mg/dL Final ??? Urea Nitrogen 10/05/2012 23 7 - 30 mg/dL Final ??? Creatinine 10/05/2012 1.41* 0.66 - 1.25 mg/dL Final ? ? GFR Estimate 10/05/2012 50* >60 mL/min/1.7m2 Final ? ? GFR Estimate If Black 10/05/2012 60* >60 mL/min/1.7m2 Final ??? Calcium 10/05/2012 9.5 8.5 - 10.4 mg/dL Final ??? Specimen Description 10/05/2012 Other RIGHT GREAT TOE Final ??? Culture Micro 10/05/2012 No growth Final ??? Micro Report Status 10/05/2012 FINAL 10/07/2012 Final Taran Lugo MD Counters, Natasha Li APRN [employer] - 05/11/2017 9:03 AM CDT [facility] [place] [facility] Daily Note Admission Date:05/05/2017 Date of service: 05/11/2017 Hospital Day: 7 Assessment & Plan #. (G93.40) Encephalopathy --due to hypoxic event related to opioid overdose --MRI brain with infarcts in the left hippocampal formation and in the cortex of the medial left superior frontal gyrus, no evidence of anoxic brain injury -----likely due to hypoxia with overdose, but cannot rule out Afib as cause ---cardiac echo with borderline left atrial dilation -----check lipids, A1c, vitamins #. (T40.2X1A) Opioid overdose, accidental or unintentional, initial encounter (primary encounter diagnosis) --unintentional overdose on pain medications --palliative was consulted for further pain management recommendations #. (J69.0) Aspiration pneumonia, unspecified aspiration pneumonia type, unspecified laterality, unspecified part of lung (H) --management per primary service #. (I48.0) Paroxysmal atrial fibrillation (H) --PAF noted on monitor ----started on amiodarone with no return of Afib ----cardiology recommending starting anticoagulation - would recommend eliquis when this is started ----patient is also followed due to AAA, which is of great concern to patient and family ------it may be reasonable to wait until after AAA is addressed to start anticoagulation #. PT/OT/Speech --continue evaluations #. Nutrition --Per speech therapy evaluation #. DVT Prophylaxis --defer to primary service Code Status: Full Code Disposition: pending No further neurological workup recommended. Will sign off. Interval History Patient presented after being found unresponsive. Found by daughter. Recent fracture of sacrum aftera fall and was taking multiple pain medications. Suspected unintentional overdose on medications. Daughter called 911 and narcan was administered, causing patient to become more responsive. Started on BiPAP in the ED and received additional narcan. Suspect extended length of time with low oxygen levels. Slowly improving mental status. MRI identified left hippocampal ischemia. This morning, mentation is significantly improved. Starting to remember events prior to hospitalization. Answers questions appropriately. Reports mild left leg weakness and tingling due to sacral fracture. C/o pain related to sacral fracture. Denies headache. Feels like he is returning to normal. Review of Systems The Review of Systems is negative other than noted in the HPI Physical Exam Vitals: Temp: 98 ??F (36.7 ??C) Temp src: Oral BP: 155/82 Heart Rate: 86 Resp: 16 SpO2: 95 % O2 Device: None (Room air) Vital Signs with Ranges: Temp: [97.7 ??F (36.5 ??C)-98 ??F (36.7 ??C)] 98 ??F (36.7 ??C) Heart Rate: [68-104] 86 Resp: [14-16] 16 BP: (118-171)/(72-96) 155/82 SpO2: [95 %-98 %] 95 % General Appearance: No acute distress Neuro: Mental Status Exam: Awake, alert, oriented X3. Speech and language are intact. Mental status is normal Cranial Nerves: Pupils 3 mm, reactive. EOMI. Face sensation is normal. Face is symmetric. Tongue and uvula are midline. Other CN are normal Motor: Generalized weakness, slightly greater in left leg due to sacral fracture. Tone and bulk arenormal Reflexes: Normal DTR. Toes downgoing. Sensory: Normal to light touch Coordination: Intact [id number] Gait: Up with assistance Cardiovascular: Regular rate and rhythm, no m/r/g Lungs: Clear to auscultation Abdomen: Soft, not tender, not distended Extremities: No clubbing, no cyanosis, no edema Medications ??? 0.45% sodium chloride + KCl 20 mEq/L 100 mL/hr at 05/10/171927 ??? famotidine 20 mg Oral Daily ??? isosorbide mononitrate 60 mg Oral Daily ??? sodium chloride (PF) 10 mL Intracatheter Q8H ??? amiodarone 400 mg Oral BID ??? ertapenem (INVanz) IV 1 g Intravenous Q24H ??? aspirin chewable tablet 81 mg 81 mg Oral Daily ??? atorvastatin (LIPITOR) tablet 40 mg 40 mg Oral Daily ??? terazosin (HYTRIN) capsule 5 mg 5 mg Oral At Bedtime ??? lisinopril 10 mg Oral Daily ??? acetaminophen 1,000 mg Oral TID ??? hydrALAZINE 25 mg Oral Q8H CISCO ??? predniSONE 10 mg Oral Daily ??? gabapentin 300 mg Oral TID ??? sodium chloride (PF) 3 mL Intracatheter Q8H ??? heparin 5,000 Units Subcutaneous Q12H Data Lab Data: All data was reviewed by me personally CBC RESULTS: Recent Labs Lab Test 05/11/17 0717 05/10/17 0743 05/09/17 0727 05/08/17 0500 WBC -- 7.7 9.5 12.7* RBC -- 3.89* 3.94* 4.00* HGB -- 12.7* 12.9* 13.0* HCT -- 37.0* 37.0* 38.3* PLT 169 168 185 162 Basic Metabolic Panel: Recent Labs Lab Test 05/11/17 0717 05/10/17 0743 05/09/17 0727 NA 144 144 142 POTASSIUM 3.7 3.5 3.5 CHLORIDE 112* 111* 110* CO2 23 23 21 BUN 25 24 22 CR 1.56* 1.49* 1.44* GLC 94 97 105* BALDEMAR 8.5 8.6 9.1 Liver panel: Recent Labs Lab Test 05/07/17 0450 05/06/17 0445 05/05/17 1520 PROTTOTAL 6.2* 6.0* 6.9 ALBUMIN 2.6* 2.6* 3.3* BILITOTAL 0.5 0.6 0.5 ALKPHOS 156* 144 166* AST 46* 57* 22 ALT 34 33 29 CK: Recent Labs Lab Test 05/05/17 1520 CKT 325* UA Results: Recent Labs Lab Test 05/05/17 1720 COLOR Yellow APPEARANCE Clear URINEGLC Negative URINEBILI Negative URINEKETONE Negative SG 1.020 UBLD Negative URINEPH 5.5 PROTEIN 30* UROBILINOGEN 0.2 NITRITE Negative LEUKEST Negative RBCU O - 2 WBCU O - 2 Cardiac US: The visual ejection fraction is estimated at 55-60%. Normal left ventricular wall motion. The right ventricle is normal in size and function. The left atrium is borderline dilated. The ascending aorta is Borderline dilated. There is no pericardial effusion. The rhythm was sinus tachycardia. No hemodynamically significant valvular abnormalities on 2D or color flow Imaging. Imaging: All imaging studies were reviewed personally CT head 05/07/17: 1. No evidence of acute intracranial hemorrhage, mass, or herniation. 2. There is generalized atrophy of the brain. White matter changes are present in the cerebral hemispheres that are consistent with small vessel ischemic disease in this age patient. MRI brain 05/09/17: 1. Limited diffusion consistent with ischemia or infarcts in the left hippocampal formation and in the cortex of the medial left superior frontal gyrus. 2. Brain atrophy and white matter changes consistent with sequelae of small vessel ischemic disease. Natasha Iraheta, TOOL GRINDER OPERATOR EXTERNAL-BC Associated attestation - Raúl Keane MD - 05/11/2017 10:57 AM CDT Physician Attestation I, Raúl Keane, saw and evaluated Speedy Mcduffie as part of a shared visit. I have reviewedand discussed with the advanced practice provider their history, physical and plan. I personally reviewed the vital signs, medications, labs and imaging. My gandara history or physical exam findings: Nearly back to baseline Gandara management decisions made by me: Will sign off Raúl Keane Date of Service (when I saw the patient): 05/11/17 Isra Greene MD - 05/10/2017 5:32 PM CDT [facility] Hospitalist Progress Note Assessment & Plan Speedy Mcduffie is a 76 year old male who was admitted on 05/05/2017. 76 year old male who was brought in for evaluation of unresponsiveness. ? 1. Altered mental status/Acute toxic encephalopathy Patient found by daughter (Raquel, COAL BRIQUETTE MACHINE OPERATOR) after likely prolonged period of unresponsiveness and suspected aspiration. Airway was cleared by daughter, but patient was hypoxic in the 60s for what soundslike at least 40 minutes before oxygen was available. Patient responded to narcan and thus it was suspected that patient had an unintentional opioid overdose with worsening of renal function and taking scheduled morphine 15mg ER BID with Ruby 7.5/325 1-1.5 tabs PRN q4-6 hours started in the past week. Also had been taking gabapentin and flexeril. - Patient started on narcan drip initially and this has since been stopped. - Have discontinued PRN ativan as daughter was concerned about increased dosing causing sedation. Will monitor and if needed, discuss with her first and consider 1x dosing. - Mental status is improving slowly. CT head when patient was complaining of severe headache was without acute findings. Given ongoing confusion and extended hypoxia, MRI brain ordered for further evaluation. MRI brain (05/09): Limited diffusion consistent with ischemia or infarcts in the left hippocampal formation and in the cortex of the medial left superior frontal gyrus. (also brain atrophy/white matter changes c/w small vessel ischemic disease). Neurology consulted on 05/10--they did not recommend additional anticoagulation at this time. Recommended outpatient OT assessment before driving, in about one month after discharge. ? 2. Suspected Aspiration PNA - Daughter (COAL BRIQUETTE MACHINE OPERATOR) found patient with large amount of material coming out of mouth - CXR- diffuse bilateral interstitial prominence, which could reflect mild edema or venous congestion;??there is patchy opacification of the right upper lobe, possibly focal infection or aspiration - Continue??Levaquin and Clindamycin for suspected aspiration PNA?? - diet advanced by speech ? 3. Tachy dani, no symptoms Patient has been alternating between periods of sinus tach and sinus dani with up to 3 second pause. No symptoms. Episodes of tachycardia (afib w/ RVR) documented. Cardiology recommends anticoagulation if no contraindications. Amiodarone started 05/09. --patient in sinus rhythm on 05/10 afternoon. ? 4. Acute hypoxic respiratory failure - due to problem #1 and #2 - management as above - improved, no longer requiring BiPAP. Supplemental O2. ? 4. Acute on CKD--acute component appears resolved. - has CKD stage 3, Cr 04/28/2017 was 1.49 - Cr improved, Creatinine 1.49 on 05/10. Will follow. - strict I/O, daily weights. Renally dose meds.? 5. Lower back pain - had a recent fall with nondisplaced insufficiency type sacral fracture; he was seen by Ortho- conservative management recommended - had been managed by his PMD and DIRECTOR LIFE was on Morphine 15 mg po BID (daughter reported that in the past he was confused with Oxycontin),??Ruby 7/325 mg 1 tab po q4-6 h; he is also on scheduled Gabapentin and prn Flexeril -and a recent admission to [facility] from 04/28-04/30 for severe lower back pain when tapering Prednisone was added. On prednisone 10mg daily at time of event with plan for 2 more days 10mg and then 3 days 5mg daily. - Prednisone has been resumed at 10mg daily. Consider tapering further to 5mg in coming days. 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 Followed recommendation to schedule Tylenol and use PRN oxycodone 2.5mg q4 hours. Other considerations noted. Will continue gabapentin at this time as daughternoted significant improvement. Heating pad in use this morning helped. - Palliative did also recommend low-dose diclofenac while monitoring renal function. Not starting this initially given acute injury, however given improvement, this could certainly be considered if renal function continues to do well. Appreciate palliative assistance. - Consulted PT/OT. ? 6. 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 - Holding now with bradycardia. - Patient has been started on hydralazine and lisinopril. Cardiology following at this time. - monitor BP ? 7. Dyslipidemia - resumed home atorvastatin ? 8 . AAA - has h/o AAA - US aorta on 04/27 showed 4.2X4.1 cm AAA, compared with prior US aorta in 12/2015 when it was 3.9X4.3 - follow up with Vascular surgery as outpatient. ? 9. Possible JACKSON - daughter reports that he snores heavily and has episodes of apnea during sleep - he refused to have sleep studies until now - Patient agreeable to follow-up with sleep study on discharge. ? DVT Prophylaxis:??Heparin SQ ? Code Status:??Full Code ? Disposition:??Expected discharge in next several??days once mental status improves. Family planning to take patient home. Isra Greene MD Interval History Patient appears more alert, reports feeling that his memory is coming back. No chest pain, dyspnea, palpitations or dizziness. Occasional cough producing yellow-green sputum. No hemoptysis. No acute changes in vision or speech, no acute lateralizing weakness. -Data reviewed today: I reviewed all new labs and imaging results over the last 24 hours. I personally reviewed no images or EKG's today. Physical Exam Temp: 97.7 ??F (36.5 ??C) Temp src: Oral BP: 141/78 Heart Rate: 81 Resp: 16 SpO2: 96 % O2 Device: None (Room air) Vitals: 05/08/17 0400 05/09/17 0607 05/10/17 0500 Weight: 93.8 kg (206 lb 12.7 oz) 92 kg (202 lb 13.2 oz) 91.5 kg (201 lb 11.5 oz) Vital Signs with Ranges Temp: [97.7 ??F (36.5 ??C)-98 ??F (36.7 ??C)] 97.7 ??F (36.5 ??C) Heart Rate: [79-115] 81 Resp: [12-16] 16 BP: (118-146)/(72-102) 141/78 SpO2: [96 %-99 %] 96 % I/O last 3 completed shifts: In: 2187 [P.O.:250; I.V.:193] Out: 1949 [Urine:1950] Constitutional: No distress Respiratory: Lungs clear to auscultation Cardiovascular: RRR, normal S1S2 GI: Abdomen soft, nontender Skin/Integumen: Skin warm/dry Other: Medications ??? 0.45% sodium chloride + KCl 20 mEq/L 100 mL/hr at 05/10/17 0821 ??? [START ON 05/11/2017] famotidine 20 mg Intravenous Daily ??? [START ON 05/11/2017] isosorbide mononitrate 60 mg Oral Daily ??? sodium chloride (PF) 10 mL Intracatheter Q8H ??? amiodarone 400 mg Oral BID ??? ertapenem (INVanz) IV 1 g Intravenous Q24H ??? aspirin chewable tablet 81 mg 81 mg Oral Daily ??? atorvastatin (LIPITOR) tablet 40 mg 40 mg Oral Daily ??? terazosin (HYTRIN) capsule 5 mg 5 mg Oral At Bedtime ??? lisinopril 10 mg Oral Daily ??? acetaminophen 1,000 mg Oral TID ??? hydrALAZINE 25 mg Oral Q8H CISCO ??? predniSONE 10 mg Oral Daily ??? gabapentin 300 mg Oral TID ??? IV infusion builder WITH LARGE additive list Intravenous Q24H ??? sodium chloride (PF) 3 mL Intracatheter Q8H ??? heparin 5,000 Units Subcutaneous Q12H Data Recent Labs Lab 05/10/17 0743 05/09/17 0727 05/08/17 0500 05/07/17 0450 05/06/17 0445 05/05/17 1529 WBC 7.7 9.5 12.7* 11.9* -- 14.4* -- -- HGB 12.7* 12.9* 13.0* 12.5* -- 12.5* -- -- MCV 95 94 96 99 -- 100 -- -- PLT 168 185 162 150 -- 135* -- -- NA 144 142 140 143 -- 143 < > -- POTASSIUM 3.5 3.5 4.1 4.8 -- 4.5 < > -- CHLORIDE 111* 110* 109 114* -- 115* < > -- CO2 23 21 20 20 -- 20 < > -- BUN 24 22 19 25 -- 39* < > -- CR 1.49* 1.44* 1.24 1.52* -- 1.79* < > -- ANIONGAP 10 11 11 9 -- 8 < > -- BALDEMAR 8.6 9.1 8.8 8.8 < > 7.8* < > -- GLC 97 105* 106* 130* -- 129* < > -- ALBUMIN -- -- -- 2.6* -- 2.6* -- -- PROTTOTAL -- -- -- 6.2* -- 6.0* -- -- BILITOTAL -- -- -- 0.5 -- 0.6 -- -- ALKPHOS -- -- -- 156* -- 144 -- -- ALT -- -- -- 34 -- 33 -- -- AST -- -- -- 46* -- 57* -- -- TROPONIN -- -- -- -- -- -- -- 0.02 < > = values in this interval not displayed. No results found for this or any previous visit (from the past 24 hour(s)). MRI BRAIN WITHOUT AND WITH CONTRAST May 09, 2017 1:52 PM ?? HISTORY: Continued encephalopathy. Patient status post prolonged anoxic event. Found unresponsive. Confusion. ?? TECHNIQUE: Multiplanar, multisequence MRI of the brain without and with 10 mL Gadavist. ?? COMPARISON: CT scan 05/07/2017. ?? FINDINGS: There is limited diffusion in the left hippocampal formation. There is also a tiny focus of limited diffusion in the medial aspect of the left superior frontal gyrus. There is no evidence of intracranial hemorrhage. There is generalized atrophy of the brain. White matter changes are present in the cerebral hemispheres that are consistent with small vessel ischemic disease in this age patient. There are no gadolinium enhancing lesions. Artifacts are seen from a small keny of metal in the patient's right lateral frontal scalp. ?? The facial structures appear normal. The arteries at the base of the brain and the dural venous sinuses appear patent. ? IMPRESSION: 1. Limited diffusion consistent with ischemia or infarcts in the left hippocampal formation and in the cortex of the medial left superior frontal gyrus. 2. Brain atrophy and white matter changes consistent with sequelae of small vessel ischemic disease. ?? MOLLY GARCIA MD ?? Mainor Delgado MD - 05/10/2017 4:04 PM CDT [facility] Cardiology Progress Note Date of Service (when I saw the patient): 05/10/2017 Assessment & Plan Speedy Mcduffie is a 76 year old male who was admitted on 05/05/2017 with altered mental status. Cardiology was consulted for episodes of tachycardia. ?? 1. Atrial fibrillation/flutter: Patient has been having episodes of tachycardia which were thought to be atrial tachycardia. - ECG from May 08 and show atrial flutter and fibrillation. - Patient also had 2.3 second pause at the time of conversion to sinus rhythm. Avoid rate slowing agents. - Considering the tachy-dani episodes, recommended starting amiodarone. Contiue amiodarone 400 mg bid for 7 days, then 200 mg daily. Patient does not have to stay in the hospital for all 7 days. He should follow-up with EP at the end of 7 days to decide long-term management. - CHADSVASC score is 5, so he should be started on anticoagulation if no contraindications. MRI brain shows possibilityof ischemia or infarcts in the left hippocampus and cortex of medial left frontal gyrus - need to discuss with Neurology regarding the timing of initiation of anticoagulation. He would prefer warfarin when we can start it. 2. AAA: Patient should also follow-up with vascular and cardiology to re-assess the AAA. ?? Will continue to follow. Mainor Delgado MD Interval History No new events in the last 24 hours. Physical Exam Temp: 97.8 ??F (36.6 ??C) Temp src: Oral BP: 141/78 Heart Rate: 104 Resp: 16 SpO2: 98 % O2 Device: None (Room air) Vitals: 05/08/17 0400 05/09/17 0607 05/10/17 0500 Weight: 93.8 kg (206 lb 12.7 oz) 92 kg (202 lb 13.2 oz) 91.5 kg (201 lb 11.5 oz) Vital Signs with Ranges Temp: [97.7 ??F (36.5 ??C)-98 ??F (36.7 ??C)] 97.8 ??F (36.6 ??C) Heart Rate: [79-115] 104 Resp: [12-16] 16 BP: (118-146)/(72-102) 141/78 SpO2: [98 %-99 %] 98 % I/O last 3 completed shifts: In: 2187 [P.O.:250; I.V.:1937] Out: 1950 [Urine:1950] Constitutional: Alert and oriented, no acute distress Respiratory: Clear to ausculate, no crackles or wheezing. Cardiovascular: Irregular rate and rhythm. S1 S2 normal. No murmurs, gallops or rubs heard Medications ??? 0.45% sodium chloride + KCl 20 mEq/L 100 mL/hr at 05/10/17 0821 ??? [START ON 05/11/2017] famotidine 20 mg Intravenous Daily ??? [START ON 05/11/2017] isosorbide mononitrate 60 mg Oral Daily ??? lidocaine 2 % ??? sodium chloride (PF) 10 mL Intracatheter Q8H ??? amiodarone 400 mg Oral BID ??? ertapenem (INVanz) IV 1 g Intravenous Q24H ??? aspirin chewable tablet 81 mg 81 mg Oral Daily ??? atorvastatin (LIPITOR) tablet 40 mg 40 mg Oral Daily ??? terazosin (HYTRIN) capsule 5 mg 5 mg Oral At Bedtime ??? lisinopril 10 mg Oral Daily ??? acetaminophen 1,000 mg Oral TID ??? hydrALAZINE 25 mg Oral Q8H CISCO ??? predniSONE 10 mg Oral Daily ??? gabapentin 300 mg Oral TID ??? IV infusion builder WITH LARGE additive list Intravenous Q24H ??? sodium chloride (PF) 3 mL Intracatheter Q8H ??? heparin 5,000 Units Subcutaneous Q12H Data Results for orders placed or performed during the hospital encounter of 05/05/17 (from the past 24 hour(s)) Basic metabolic panel Result Value Ref Range Sodium 144 133 - 144 mmol/L Potassium 3.5 3.4 - 5.3 mmol/L Chloride 111 (H) 94 - 109 mmol/L Carbon Dioxide 23 20 - 32 mmol/L Anion Gap 10 3 - 14 mmol/L Glucose 97 70 - 99 mg/dL Urea Nitrogen 24 7 - 30 mg/dL Creatinine 1.49 (H) 0.66 - 1.25 mg/dL GFR Estimate 46 (L) >60 mL/min/1.7m2 GFR Estimate If Black 56 (L) >60 mL/min/1.7m2 Calcium 8.6 8.5 - 10.1 mg/dL CBC with platelets differential Result Value Ref Range WBC 7.7 4.0 - 11.0 10e9/L RBC Count 3.89 (L) 4.4 - 5.9 10e12/L Hemoglobin 12.7 (L) 13.3 - 17.7 g/dL Hematocrit 37.0 (L) 40.0 - 53.0 % MCV 95 78 - 100 fl MCH 32.6 26.5 - 33.0 pg MCHC 34.3 31.5 - 36.5 g/dL RDW 13.3 10.0 - 15.0 % Platelet Count 168 150 - 450 10e9/L Diff Method Automated Method % Neutrophils 68.9 % % Lymphocytes 17.9 % % Monocytes 9.7 % % Eosinophils 2.6 % % Basophils 0.3 % % Immature Granulocytes 0.6 % Nucleated RBCs 0 0 /100 Absolute Neutrophil 5.3 1.6 - 8.3 10e9/L Absolute Lymphocytes 1.4 0.8 - 5.3 10e9/L Absolute Monocytes 0.8 0.0 - 1.3 10e9/L Absolute Eosinophils 0.2 0.0 - 0.7 10e9/L Absolute Basophils 0.0 0.0 - 0.2 10e9/L Abs Immature Granulocytes 0.1 0 - 0.4 10e9/L Absolute Nucleated RBC 0.0 Mainor Delgado MD - 05/09/2017 2:04 PM CDT [facility] Cardiology Progress Note Date of Service (when I saw the patient): 05/09/2017 Assessment & Plan Speedy Mcduffie is a 76 year old male who was admitted on 05/05/2017 with altered mental status. Cardiology was consulted for episodes of tachycardia. 1. Atrial fibrillation/flutter: Patient has been having episodes of tachycardia which were thought to be atrial tachycardia. - ECG from May 08 and show atrial flutter and fibrillation. - Patient also had 2.3 second pause at the time of conversion to sinus rhythm. Avoid rate slowing agents. - Considering the tachy-dani episodes, recommend starting amiodarone. Will start with amiodarone 400 mg bid for 7 day, then 200 mg daily. Patient does not have to stay in the hospital for all 7 days. - CHADSVASC score is 5, so he should be started on anticoagulation if no contraindications. MRI brain shows possibilityof ischemia or infarcts in the left hippocampus and cortex of medial left frontal gyrus - need to discuss with Neurology regarding the timing of initiation of anticoagulation. Will continue to follow. Mainor Delgado MD Interval History Patient does not report any symptoms during the tachy episodes. Physical Exam Temp: 97.8 ??F (36.6 ??C) Temp src: Oral BP: (!) 145/100 Heart Rate: 123 Resp: 16 SpO2: 94 % O2 Device: None (Room air) Vitals: 05/07/17 0549 05/08/17 0400 05/09/17 0607 Weight: 97.2 kg (214 lb 4.6 oz) 93.8 kg (206 lb 12.7 oz) 92 kg (202 lb 13.2 oz) Vital Signs with Ranges Temp: [97.8 ??F (36.6 ??C)-98.4 ??F (36.9 ??C)] 97.8 ??F (36.6 ??C) Heart Rate: [97-147] 123 Resp: [14-18] 16 BP: (107-164)/(70-103) 145/100 SpO2: [94 %-97 %] 94 % I/O last 3 completed shifts: In: 1480 [P.O.:400; I.V.:1080] Out: 2900 [Urine:2900] Constitutional: Alert and oriented, no acute distress Neck: No JVP elevation. Respiratory: Clear to ausculate, no crackles or wheezing. Cardiovascular: Irregular rate and rhythm. S1 S2 normal. No murmurs, gallops or rubs heard Extremities: No peripheral edema. Medications ??? 0.45% sodium chloride + KCl 20 mEq/L 100 mL/hr at 05/09/17 0011 ??? sodium chloride (PF) 10 mL Intracatheter Q8H ??? levofloxacin 500 mg Intravenous Q24H ??? aspirin chewable tablet 81 mg 81 mg Oral Daily ??? atorvastatin (LIPITOR) tablet 40 mg 40 mg Oral Daily ??? terazosin (HYTRIN) capsule 5 mg 5 mg Oral At Bedtime ??? lisinopril 10 mg Oral Daily ??? famotidine 20 mg Intravenous BID ??? acetaminophen 1,000 mg Oral TID ??? hydrALAZINE 25 mg Oral Q8H CISCO ??? isosorbide mononitrate 30 mg Oral Daily ??? predniSONE 10 mg Oral Daily ??? gabapentin 300 mg Oral TID ??? IV infusion builder WITH LARGE additive list Intravenous Q24H ??? sodium chloride (PF) 3 mL Intracatheter Q8H ??? heparin 5,000 Units Subcutaneous Q12H ??? clindamycin 900 mg Intravenous Q8H Data Results for orders placed or performed during the hospital encounter of 05/05/17 (from the past 24 hour(s)) Lactic acid level STAT Result Value Ref Range Lactic Acid 1.3 0.7 - 2.1 mmol/L EKG 12-lead, tracing only Result Value Ref Range Interpretation ECG Click View Image link to view waveform and result EKG 12-lead, tracing only Result Value Ref Range Interpretation ECG Click View Image link to view waveform and result Basic metabolic panel Result Value Ref Range Sodium 142 133 - 144 mmol/L Potassium 3.5 3.4 - 5.3 mmol/L Chloride 110 (H) 94 - 109 mmol/L Carbon Dioxide 21 20 - 32 mmol/L Anion Gap 11 3 - 14 mmol/L Glucose 105 (H) 70 - 99 mg/dL Urea Nitrogen 22 7 - 30 mg/dL Creatinine 1.44 (H) 0.66 - 1.25 mg/dL GFR Estimate 48 (L) >60 mL/min/1.7m2 GFR Estimate If Black 58 (L) >60 mL/min/1.7m2 Calcium 9.1 8.5 - 10.1 mg/dL CBC with platelets differential Result Value Ref Range WBC 9.5 4.0 - 11.0 10e9/L RBC Count 3.94 (L) 4.4 - 5.9 10e12/L Hemoglobin 12.9 (L) 13.3 - 17.7 g/dL Hematocrit 37.0 (L) 40.0 - 53.0 % MCV 94 78 - 100 fl MCH 32.7 26.5 - 33.0 pg MCHC 34.9 31.5 - 36.5 g/dL RDW 13.1 10.0 - 15.0 % Platelet Count 185 150 - 450 10e9/L Diff Method Automated Method % Neutrophils 74.3 % % Lymphocytes 13.7 % % Monocytes 9.3 % % Eosinophils 2.2 % % Basophils 0.1 % % Immature Granulocytes 0.4 % Nucleated RBCs 0 0 /100 Absolute Neutrophil 7.1 1.6 - 8.3 10e9/L Absolute Lymphocytes 1.3 0.8 - 5.3 10e9/L Absolute Monocytes 0.9 0.0 - 1.3 10e9/L Absolute Eosinophils 0.2 0.0 - 0.7 10e9/L Absolute Basophils 0.0 0.0 - 0.2 10e9/L Abs Immature Granulocytes 0.0 0 - 0.4 10e9/L Absolute Nucleated RBC 0.0 MR Brain w/o & w Contrast Narrative MRI BRAIN WITHOUT AND WITH CONTRAST May 09, 2017 1:52 PM HISTORY: Continued encephalopathy. Patient status post prolonged anoxic event. Found unresponsive. Confusion. TECHNIQUE: Multiplanar, multisequence MRI of the brain without and with 10 mL Gadavist. COMPARISON: CT scan 05/07/2017. FINDINGS: There is limited diffusion in the left hippocampal formation. There is also a tiny focus of limited diffusion in the medial aspect of the left superior frontal gyrus. There is no evidence of intracranial hemorrhage. There is generalized atrophy of the brain. White matter changes are present in the cerebral hemispheres that are consistent with small vessel ischemic disease in this age patient. There are no gadolinium enhancing lesions. Artifacts are seen from a small keny of metal in the patient's right lateral frontal scalp. The facial structures appear normal. The arteries at the base of the brain and the dural venous sinuses appear patent. Impression IMPRESSION: 1. Limited diffusion consistent with ischemia or infarcts in the left hippocampal formation and in the cortex of the medial left superior frontal gyrus. 2. Brain atrophy and white matter changes consistent with sequelae of small vessel ischemic disease. Isra Greene MD - 05/09/2017 11:58 AM CDT [facility] Hospitalist Progress Note Assessment & Plan Speedy Mcduffie is a 76 year old male who was admitted on 05/05/2017. 76 year old male who was brought in for evaluation of unresponsiveness. ? 1. Altered mental status/Acute toxic encephalopathy Patient found by daughter (Raquel, COAL BRIQUETTE MACHINE OPERATOR) after likely prolonged period of unresponsiveness and suspected aspiration. Airway was cleared by daughter, but patient was hypoxic in the 60s for what soundslike at least 40 minutes before oxygen was available. Patient responded to narcan and thus it was suspected that patient had an unintentional opioid overdose with worsening of renal function and taking scheduled morphine 15mg ER BID with Ruby 7.5/325 1-1.5 tabs PRN q4-6 hours started in the past week. Also had been taking gabapentin and flexeril. - Patient started on narcan drip initially and this has since been stopped. - Mental status is improving slowly. CT head when patient was complaining of severe headache was without acute findings. Given ongoing confusion and extended hypoxia, have also ordered MRI brain for further evaluation. MRI to be attempted this afternoon (05/09) - Have discontinued PRN ativan (which had been ordered overnight) as daughter was concerned about increased dosing causing sedation. Will monitor and if needed, discuss with her first and consider 1x dosing. ? 2. Suspected Aspiration PNA - Daughter (COAL BRIQUETTE MACHINE OPERATOR) found patient with large amount of material coming out of mouth - CXR- diffuse bilateral interstitial prominence, which could reflect mild edema or venous congestion;??there is patchy opacification of the right upper lobe, possibly focal infection or aspiration - Continue??Levaquin and Clindamycin for suspected aspiration PNA?? - diet advanced by speech ? 3. Tachy dani, no symptoms Patient has been alternating between periods of sinus tach and sinus dani with up to 3 second pause. No symptoms. Seen by cardiology. Continue to monitor on tele and hold patient's home BB. Episode of tachycardia (?afib w/ RVR) last night (05/08). Will await cardiology input. ? 4. Acute hypoxic respiratory failure - due to problem #1 and #2 - management as above - improved, no longer requiring BiPAP. Supplemental O2. ? 4. Acute on CKD--acute component appears resolved. - has CKD stage 3, Cr 04/28/2017 was 1.49 - Cr improved, Creatinine 1.44 on 05/09. Will follow. - strict I/O, daily weights. Renally dose meds.? 5. Lower back pain - had a recent fall with nondisplaced insufficiency type sacral fracture; he was seen by Ortho- conservative management recommended - had been managed by his PMD and DIRECTOR LIFE was on Morphine 15 mg po BID (daughter reported that in the past he was confused with Oxycontin),??Ruby 7/325 mg 1 tab po q4-6 h; he is also on scheduled Gabapentin and prn Flexeril -and a recent admission to [facility] from 04/28-04/30 for severe lower back pain when tapering Prednisone was added. On prednisone 10mg daily at time of event with plan for 2 more days 10mg and then 3 days 5mg daily. - Prednisone has been resumed at 10mg daily. Consider tapering further to 5mg in coming days. 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 Followed recommendation to schedule Tylenol and use PRN oxycodone 2.5mg q4 hours. Other considerations noted. Will continue gabapentin at this time as daughternoted significant improvement. Heating pad in use this morning helped. - Palliative did also recommend low-dose diclofenac while monitoring renal function. Not starting this initially given acute injury, however given improvement, this could certainly be considered if renal function continues to do well. Appreciate palliative assistance. - Consulted PT/OT. ? 6. 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 - Holding now with bradycardia. - Patient has been started on hydralazine and lisinopril. Cardiology following at this time. - monitor BP ? 7. Dyslipidemia - resumed home atorvastatin ? 8 . AAA - has h/o AAA - US aorta on 04/27 showed 4.2X4.1 cm AAA, compared with prior US aorta in 12/2015 when it was 3.9X4.3 - follow up with Vascular surgery as outpatient. ? 9. Possible JACKSON - daughter reports that he snores heavily and has episodes of apnea during sleep - he refused to have sleep studies until now - Patient agreeable to follow-up with sleep study on discharge. ?? DVT Prophylaxis: Heparin SQ ?? Code Status: Full Code ?? Disposition: Expected discharge in next several days once mental status improves. Family planning totake patient home. Isra Greene MD Interval History Patient dozing, awakens to voice and gentle tactile stimuli. Currently denies having significant pain. No chest pain, dyspnea, palpitations or dizziness. Episode of tachycardia last night noted--suspected atrial fibrillation with rapid ventricular response. Treated with prn IV metoprolol. Will await cardiology assistance. -Data reviewed today: I reviewed all new labs and imaging results over the last 24 hours. I personally reviewed no images or EKG's today. Physical Exam Temp: 98.1 ??F (36.7 ??C) Temp src: Oral BP: 142/87 Heart Rate: 110 Resp: 16 SpO2: 96 % O2 Device: None (Room air) Oxygen Delivery: 2 LPM Vitals: 05/07/17 0549 05/08/17 0400 05/09/17 0607 Weight: 97.2 kg (214 lb 4.6 oz) 93.8 kg (206 lb 12.7 oz) 92 kg (202 lb 13.2 oz) Vital Signs with Ranges Temp: [98 ??F (36.7 ??C)-98.4 ??F (36.9 ??C)] 98.1 ??F (36.7 ??C) Heart Rate: [58-147] 110 Resp: [14-18] 16 BP: (107-164)/(70-103) 142/87 SpO2: [94 %-99 %] 96 % I/O last 3 completed shifts: In: 1480 [P.O.:400; I.V.:1080] Out: 2900 [Urine:2900] Constitutional: No distress Respiratory: Lungs clear to auscultation anterior/lateral lung valle Cardiovascular: Currently with RRR, normal S1S2 GI: Abdomen soft, nontender Skin/Integumen: Skin warm/dry Other: Medications ??? 0.45% sodium chloride + KCl 20 mEq/L 100 mL/hr at 05/09/17 0011 ??? levofloxacin 500 mg Intravenous Q24H ??? aspirin chewable tablet 81 mg 81 mg Oral Daily ??? atorvastatin (LIPITOR) tablet 40 mg 40 mg Oral Daily ??? terazosin (HYTRIN) capsule 5 mg 5 mg Oral At Bedtime ??? lisinopril 10 mg Oral Daily ??? famotidine 20 mg Intravenous BID ??? acetaminophen 1,000 mg Oral TID ??? hydrALAZINE 25 mg Oral Q8H CISCO ??? isosorbide mononitrate 30 mg Oral Daily ??? predniSONE 10 mg Oral Daily ??? gabapentin 300 mg Oral TID ??? IV infusion builder WITH LARGE additive list Intravenous Q24H ??? sodium chloride (PF) 3 mL Intracatheter Q8H ??? heparin 5,000 Units Subcutaneous Q12H ??? clindamycin 900 mg Intravenous Q8H Data Recent Labs Lab 05/09/17 0727 05/08/17 0500 05/07/17 0450 05/06/17 0445 05/05/17 1529 WBC 9.5 12.7* 11.9* -- 14.4* -- -- HGB 12.9* 13.0* 12.5* -- 12.5* -- -- MCV 94 96 99 -- 100 -- -- PLT 185 162 150 -- 135* -- -- NA 142 140 143 -- 143 < > -- POTASSIUM 3.5 4.1 4.8 -- 4.5 < > -- CHLORIDE 110* 109 114* -- 115* < > -- CO2 21 20 20 -- 20 < > -- BUN 22 19 25 -- 39* < > -- CR 1.44* 1.24 1.52* -- 1.79* < > -- ANIONGAP 11 11 9 -- 8 < > -- BALDEMAR 9.1 8.8 8.8 < > 7.8* < > -- GLC 105* 106* 130* -- 129* < > -- ALBUMIN -- -- 2.6* -- 2.6* -- -- PROTTOTAL -- -- 6.2* -- 6.0* -- -- BILITOTAL -- -- 0.5 -- 0.6 -- -- ALKPHOS -- -- 156* -- 144 -- -- ALT -- -- 34 -- 33 -- -- AST -- -- 46* -- 57* -- -- TROPONIN -- -- -- -- -- -- 0.02 < > = values in this interval not displayed. No results found for this or any previous visit (from the past 24 hour(s)). Jeanette Carbajal OT - 05/09/2017 9:15 AM CDT 05/09/17 0815 Quick Adds Type of Visit Initial Occupational Therapy Evaluation Living Environment Lives With spouse Living Arrangements house Number of Stairs to Enter Home 2 Number of Stairs Within Home (Multi level home) Transportation Available family or friend will provide;car Living Environment Comment Pt travels between cabin adn home, oth have stairs Self-Care Dominant Hand right Usual Activity Tolerance moderate Current Activity Tolerance poor Regular Exercise no Equipment Currently Used at Home walker, rolling Activity/Exercise/Self-Care Comment Family has been assisting, pt's has a sacral fracture Functional Level Prior Ambulation 1-->assistive equipment Transferring 1-->assistive equipment Toileting 1-->assistive equipment Bathing 1-->assistive equipment Dressing 2-->assistive person Eating 0-->independent Communication 0-->understands/communicates without difficulty Swallowing 0-->swallows foods/liquids without difficulty Cognition 0 - no cognition issues reported Fall history within last six months yes Number of times patient has fallen within last six months 1 Which of the above functional risks had a recent onset or change? ambulation;transferring;toileting;bathing;dressing;cognition Prior Functional Level Comment Per Daughter, pt was ambulating with the use of a WW. It took a bit to get going, but he was getting around okay at home. General Information Onset of Illness/Injury or Date of Surgery - Date 05/05/17 Referring Physician Stephany Farley MD Patient/Family Goals Statement Reduce back pain Additional Occupational Profile Info/Pertinent History of Current Problem Pt is a 76 yo male found by daughter who is an ICU nurse, pt was unresponsive and airlifted to [facility]. Pt responded to Narcan, suspected accidental overdose with opiod medication. PMH includes multiple sacral fractures apx 1 month ago with conservative management, and previous spinal surgeries. Pt resides in a house with his ,and stays at his cabin, there are multiple stairs at both loations. Two of his daughters have been assisting at home as needed, the pt's also has had a fracture in the last year and is unanble to assist with mobility. Family reports pt was previously ambulating on his own with a FWW and was able to stand for long periods of time, sitting was too uncomfortable. Pt had assist with dressing, and IADLs. Precautions/Limitations spinal precautions;fall precautions;swallowing precautions General Info Comments Pt has modified diet nectar thick Cognitive Status Examination Orientation person;place Level of Consciousness alert Able to Follow Commands WNL/WFL Personal Safety (Cognitive) at risk behaviors demonstrated;impulsive Cognitive Comment Per nursing report pt is impulsive, not seen at time of eval, pt had moments of mild confusion Visual Perception Visual Perception Wears glasses Pain Assessment Patient Currently in Pain Yes, see Vital Sign flowsheet Range of Motion (ROM) ROM Comment BUE WFL for ADLs Strength Strength Comments 4+/5 BUE Coordination Upper Extremity Coordination No deficits were identified Mobility Bed Mobility Comments MOD A 2 Transfer Skills Transfer Comments A of 2 Transfer Skill: Bed to Chair/Chair to Bed Level of [place]: Bed to Chair moderate assist (50% patients effort) Physical Assist/Nonphysical Assist: Bed to Chair 2 persons Weight-Bearing Restrictions full weight-bearing Assistive Device - Transfer Skill Bed to Chair Chair to Bed Rehab Eval rolling walker Transfer Skill: Sit to Stand Level of [place]: Sit/Stand minimum assist (75% patients effort) Physical Assist/Nonphysical Assist: Sit/Stand 2 persons Transfer Skill: Sit to Stand full weight-bearing Assistive Device for Transfer: Sit/Stand rolling walker Transfer Skill: Toilet Transfer Level of [place]: Toilet moderate assist (50% patients effort) Physical Assist/Nonphysical Assist: Toilet 2 persons Assistive Device seat riser;grab bars Balance Balance Comments Reduced dynamic balance Upper Body Dressing Level of [place]: Dress Upper Body minimum assist (75% patients effort) Lower Body Dressing Level of [place]: Dress Lower Body maximum assist (25% patients effort) Physical Assist/Nonphysical Assist: Dress Lower Body 1 person assist Grooming Level of [place]: Grooming stand-by assist Activities of Daily Living Analysis Impairments Contributing to Impaired Activities of Daily Living balance impaired;pain;postural control impaired;ROM decreased;cognition impaired General Therapy Interventions Planned Therapy Interventions ADL retraining;IADL retraining;cognition Clinical Impression Criteria for Skilled Therapeutic Interventions Met yes, treatment indicated OT Diagnosis Reduced IND in ADLs Influenced by the following impairments Impaired balance, cognition, postural ROM, severe pain, spinal precautions Assessment of Occupational Performance 3-5 Performance Deficits Identified Performance Deficits impaired ability to perform dressing, bathing, functional mobility, Clinical Decision Making (Complexity) Moderate complexity Therapy Frequency daily Predicted Duration of Therapy Intervention (days/wks) 1 week Anticipated Discharge Disposition Transitional Care Facility Risks and Benefits of Treatment have been explained. Yes Patient, Family & other staff in agreement with plan of care Yes [facility] AM-PAC TM 6 Clicks ?? 2016, Trustees of [facility], under license to [employer]. All rights reserved. 6 Clicks Short Forms Basic Mobility Inpatient Short Form [facility] AM-PAC??? 6 Clicks Daily Activity Inpatient Short Form 1. Putting on and taking off regular lower body clothing? 2 - A Lot 2. Bathing (including washing, rinsing, drying)? 2 - A Lot 3. Toileting, which includes using toilet, bedpan or urinal? 2 - A Lot 4. Putting on and taking off regular upper body clothing? 3 - A Little 5. Taking care of personal grooming such as brushing teeth? 3 - A Little 6. Eating meals? 4 - None Daily Activity Raw Score (Score out of 24.Lower scores equate to lower levels of function) 16 Total Evaluation Time Total Evaluation Time (Minutes) 10 Mickey Smith MD - 05/09/2017 5:31 AM CDT X-Cover: Called regarding tele with possible A-fib. EKG ordered and shows HR in the 140's with suspected A-Fib. Asymptomatic. C/w PRN lopressor for now as HR's are presently 102. CHADS2 is 1 for age and alreadyon a baby Asa. No need for IV heparin. Previously reported pauses so captain/airline pilot BB on hold. Could consider resuming BB and monitoring for pauses or short acting CCB. Would recommending re- consulting EP in am if cards agrees. Continue to monitor on tele. Lindsay Watt PA-C - 05/08/2017 9:13 PM CDT Paged by nursing regarding persistent sinus tachycardia in the 140s this evening. Pt asymptomatic. Reviewed chart. Pt with tachybrady syndrome. Cardiology following. Pt's DIRECTOR LIFE BB has been on hold as wasalternating between periods of sinus tach and sinus dani with up to 3 second pause. Will order PRN IV Metoprolol 2.5 mg q 4 hrs PRN. Monitor. If pt should become symptomatic or HR's continue to be persistently elevated, could increase dose of IV Metoprolol or reinitiate DIRECTOR LIFE BB. Stephany Farley MD - 05/08/2017 2:27 PM CDT [facility] Hospitalist Progress Note Date of Service (when I saw the patient): 05/08/2017 Assessment & Plan Speedy Mcduffie is a 76 year old male who was brought in for evaluation of unresponsiveness. ? 1. Altered mental status/Acute toxic encephalopathy Patient found by daughter (Raquel, [employer] MACHINE OPERATOR) after likely prolonged period of unresponsiveness and suspected aspiration. Airway was cleared by daughter, but patient was hypoxic in the 60s for what soundslike at least 40 minutes before oxygen was available. Patient responded to narcan and thus it was suspected that patient had an unintentional opioid overdose with worsening of renal function and taking scheduled morphine 15mg ER BID with Ruby 7.5/325 1-1.5 tabs PRN q4-6 hours started in the past week. Also had been taking gabapentin and flexeril. - Patient started on narcan drip initially and this has since been stopped. - Mental status is improving slowly. CT head when patient was complaining of severe headache was without acute findings. Given ongoing confusion and extended hypoxia, have also ordered MRI brain for further evaluation, if patient tolerates. Daughter asked that this wait until tomorrow morning. - Have discontinued PRN ativan (which had been ordered overnight) as daughter was concerned about increased dosing causing sedation. Will monitor and if needed, discuss with her first and consider 1x dosing. ? 2. Suspected Aspiration PNA - Daughter ([employer] BRIQUETTE MACHINE OPERATOR) found patient with large amount of material coming out of mouth - CXR- diffuse bilateral interstitial prominence, which could reflect mild edema or venous congestion;??there is patchy opacification of the right upper lobe, possibly focal infection or aspiration - Continue Levaquin and Clindamycin for suspected aspiration PNA - diet advanced by speech ?? 3. Tachy dani, no symptoms Patient has been alternating between periods of sinus tach and sinus dani with up to 3 second pause. No symptoms. Seen by cardiology. Continue to monitor on tele and hold patient's home BB. ? 4. Acute hypoxic respiratory failure - due to problem #1 and #2 - management as above - improved, no longer requiring BiPAP. Supplemental O2. ? 4. Acute on CKD - has CKD stage 3, Cr 04/28/2017 was 1.49 - Cr improving beyond baseline at this time. Will follow. - strict I/O, daily weights. Renally dose meds. ? 5. Lower back pain - had a recent fall with nondisplaced insufficiency type sacral fracture; he was seen by Ortho- conservative management recommended - had been managed by his PMD and DIRECTOR LIFE was on Morphine 15 mg po BID (daughter reported that in the past he was confused with Oxycontin),??Ruby 7/325 mg 1 tab po q4-6 h; he is also on scheduled Gabapentin and prn Flexeril -and a recent admission to [facility] from 04/28-04/30 for severe lower back pain when tapering Prednisone was added. On prednisone 10mg daily at time of event with plan for 2 more days 10mg and then 3 days 5mg daily. - Will resume prednisone 10mg daily. Consider tapering further to 5mg in coming days. 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 Followed recommendation to schedule Tylenol and use PRN oxycodone 2.5mg q4 hours. Other considerations noted. Will continue gabapentin at this time as daughternoted significant improvement. Heating pad in use this morning helped. - Palliative did also recommend low-dose diclofenac while monitoring renal function. Not starting this initially given acute injury, however given improvement, this could certainly be considered if renal function continues to do well. Appreciate palliative assistance. - Consulted PT/OT. ? 6. 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 - Holding now with bradycardia. - Patient has been started on hydralazine and lisinopril. Cardiology following at this time. - monitor BP ? 7. Dyslipidemia - resumed home atorvastatin ? 8 . AAA - has h/o AAA - US aorta on 04/27 showed 4.2X4.1 cm AAA, compared with prior US aorta in 12/2015 when it was 3.9X4.3 - follow up with Vascular surgery as outpatient. ? 9. Possible JACKSON - daughter reports that he snores heavily and has episodes of apnea during sleep - he refused to have sleep studies until now - Patient agreeable to follow-up with sleep study on discharge. DVT Prophylaxis: Heparin SQ Code Status: Full Code Disposition: Expected discharge in next several days once mental status improves. Family planning totake patient home. Stephany Farley MD [phone] (P) Text page (7am to 6pm) Interval History Patient continues to slowly improve, though orientation still fluctuating. Pain continues and will work on achieving better control. -Data reviewed today: I reviewed all new labs and imaging results over the last 24 hours. I personally reviewed no images or EKG's today. Physical Exam Temp: 98 ??F (36.7 ??C) Temp src: Axillary BP: 138/77 Heart Rate: 58 Resp: 16 SpO2: 99 % O2 Device: Nasal cannula Oxygen Delivery: 2 LPM Vitals: 05/05/17 2000 05/07/17 0549 05/08/17 0400 Weight: 98 kg (216 lb 0.8 oz) 97.2 kg (214 lb 4.6 oz) 93.8 kg (206 lb 12.7 oz) Vital Signs with Ranges Temp: [98 ??F (36.7 ??C)-98.8 ??F (37.1 ??C)] 98 ??F (36.7 ??C) Heart Rate: [46-124] 58 Resp: [8-100] 16 BP: (122-196)/(59-130) 138/77 SpO2: [95 %-100 %] 99 % I/O last 3 completed shifts: In: 1200 [P.O.:455; I.V.:745] Out: 2540 [Urine:2540] Constitutional: Much more alert this morning. Oriented to hospital, year, though thought he was in [place]. No acute distress. Non-toxic. Respiratory: Clear to auscultation, diminished breath sounds with somewhat poor effort. Wheezes noted to right lung field. Cardiovascular: Sinus rhythm, alternating between tachy and dani. No murmur. GI: soft nontender, nondistended. Normoactive bowel sounds. Neuro: Alert. Orientation fluctuating. Ongoing confusion of recent events. No focal neurologic deficits. Medications ??? 0.45% sodium chloride + KCl 20 mEq/L ??? levofloxacin 500 mg Intravenous Q24H ??? aspirin chewable tablet 81 mg 81 mg Oral Daily ??? atorvastatin (LIPITOR) tablet 40 mg 40 mg Oral Daily ??? terazosin (HYTRIN) capsule 5 mg 5 mg Oral At Bedtime ??? lisinopril 10 mg Oral Daily ??? famotidine 20 mg Intravenous BID ??? hydrALAZINE 25 mg Oral Q8H CISCO ??? isosorbide mononitrate 30 mg Oral Daily ??? predniSONE 10 mg Oral Daily ??? gabapentin 300 mg Oral TID ??? IV infusion builder WITH LARGE additive list Intravenous Q24H ??? sodium chloride (PF) 3 mL Intracatheter Q8H ??? heparin 5,000 Units Subcutaneous Q12H ??? clindamycin 900 mg Intravenous Q8H Data Recent Labs Lab 05/08/17 0500 05/07/17 0450 05/06/17 1718 05/06/17 0445 05/05/17 1529 WBC 12.7* 11.9* -- 14.4* -- -- HGB 13.0* 12.5* -- 12.5* -- -- MCV 96 99 -- 100 -- -- PLT 162 150 -- 135* -- -- NA 140 143 -- 143 < > -- POTASSIUM 4.1 4.8 -- 4.5 < > -- CHLORIDE 109 114* -- 115* < > -- CO2 20 20 -- 20 < > -- BUN 19 25 -- 39* < > -- CR 1.24 1.52* -- 1.79* < > -- ANIONGAP 11 9 -- 8 < > -- BALDEMAR 8.8 8.8 8.6 7.8* < > -- GLC 106* 130* -- 129* < > -- ALBUMIN -- 2.6* -- 2.6* -- -- PROTTOTAL -- 6.2* -- 6.0* -- -- BILITOTAL -- 0.5 -- 0.6 -- -- ALKPHOS -- 156* -- 144 -- -- ALT -- 34 -- 33 -- -- AST -- 46* -- 57* -- -- TROPONIN -- -- -- -- -- 0.02 < > = values in this interval not displayed. Imaging: Recent Results (from the past 24 hour(s)) CT Head w/o Contrast Narrative CT SCAN OF THE HEAD WITHOUT CONTRAST 05/07/2017 5:04 PM HISTORY: Severe headache, hypertension. No focal deficits, encephalopathy recovering from hypoxic event. TECHNIQUE: Axial images of the head and coronal reformations without IV contrast material. Radiation dose for this scan was reduced using automated exposure control, adjustment of the mA and/or kV according to patient size, or iterative reconstruction technique. COMPARISON: None. FINDINGS: There is no evidence of intracranial hemorrhage, mass, acute infarct or anomaly. There is generalized atrophy of the brain. There is low attenuation in the white matter of the cerebral hemispheres consistent with sequelae of small vessel ischemic disease. The visualized portions of the sinuses and mastoids appear normal. There is no evidence of trauma. Impression IMPRESSION: 1. No evidence of acute intracranial hemorrhage, mass, or herniation. 2. There is generalized atrophy of the brain. White matter changes are present in the cerebral hemispheres that are consistent with small vessel ischemic disease in this age patient. KATIA DAVID MD Hue Klein MD - 05/08/2017 11:04 AM CDT Cardiology Progress Note Assessment and Plan: 1. HTN: Agree with holding BB due to pauses overnight. Will add Lisinopril as creatinine has improved Continue hydralazine and Imdur. May need to uptitrate STUART-I (as kidney function allows) 2. Sinus Pause May represent intrinsic conduction disease. Continue to hold BB. EP has seen. SVT, possibly atrial tachycardia. Probable JACKSON contributing. No A-fib 3. AAA: F/U with Vascular as scheduled 4. AMS: Multi-factorial. Improved from yesterday. 6. Acute on Chronic renal failure: Improving. Adding STUART-I for BP control. Labs in am. 7. Will follow along Interval History: no new complaints and doing well; no cp, sob, n/v/d, or abd pain. Medications: I have reviewed this patient's current medications Physical Exam: Blood pressure 161/73, pulse 82, temperature 98.4 ??F (36.9 ??C), resp. rate 18, height 1.702 m (5' 7), weight 93.8 kg (206 lb 12.7 oz), SpO2 97 %. Constitutional: fatigued and slightly confused. Sometimes could not finish his answers. Respiratory: Coarse breath sounds, slightly diminished on the left side Cardiovascular: Regular rate and rhythm but tachycardic GI: soft, non-tender Skin: warm and dry Neurologic: orientated to place but not time or person. Vital Sign Ranges Temperature Temp Av.4 ??F (36.9 ??C) Min: 98.1 ??F (36.7 ??C) Max: 98.8 ??F (37.1 ??C) Blood pressure Systolic (24hrs), Av , Min:122 , Max:196 Diastolic (24hrs), Av, Min:59, Max:130 Pulse No Data Recorded Respirations Resp Av.4 Min: 8 Max: 100 Pulse oximetry SpO2 Av % Min: 95 % Max: 100 % Intake/Output Summary (Last 24 hours) at 05/08/17 1105 Last data filed at 05/08/17 1100 Gross per 24 hour Intake 1075 ml Output 2515 ml Net -1440 ml Stephany Farley MD - 05/07/2017 10:00 PM CDT [facility] Date of Service (when I saw the patient): 05/07/2017 Assessment & Plan Speedy Mcduffie is a 76 year old male who was brought in for evaluation of unresponsiveness. ? 1. Altered mental status/Acute toxic encephalopathy Patient found by daughter (Raquel, [employer] MACHINE OPERATOR) after likely prolonged period of unresponsiveness and suspected aspiration. Airway was cleared by daughter, but patient was hypoxic in the 60s for what soundslike at least 40 minutes before oxygen was available. Patient responded to narcan and thus it was suspected that patient had an unintentional opioid overdose with worsening of renal function and taking scheduled morphine 15mg ER BID with Ruby 7.5/325 1-1.5 tabs PRN q4-6 hours started in the past week. Also had been taking gabapentin and flexeril. - Patient started on narcan drip initially and this has since been stopped. - Mental status is improving. Has been having confusion since arrival, but this is not worsening. - Continue minimal use of the norco. - Have discontinued PRN ativan (which had been ordered overnight) as daughter was concerned about increased dosing causing sedation. Will monitor and if needed, discuss with her first and consider 1x dosing. ?? 2. Suspected Aspiration PNA - Daughter (COAL BRIQUETTE MACHINE OPERATOR) found patient with large amount of material coming out of mouth - CXR- diffuse bilateral interstitial prominence, which could reflect mild edema or venous congestion;??there is patchy opacification of the right upper lobe, possibly focal infection or aspiration - Continue Levaquin and Clindamycin for suspected aspiration PNA - diet advanced by speech 3. Tachy dani, no symptoms Patient has been alternating between periods of sinus tach and sinus dani with up to 3 second pause. No symptoms. Seen by cardiology. Continue to monitor on tele and hold patient's home BB. ? 4. Acute hypoxic respiratory failure - due to problem #1 and #2 - management as above - improved, no longer requiring BiPAP though will make available if needed overnight. Supplemental O2. ? 4. Acute on CKD - has CKD stage 3, Cr 04/28/2017 was 1.49 - Cr improving. Will follow. - strict I/O, daily weights. Renally dose meds. ? 5. Lower back pain - had a recent fall with nondisplaced insufficiency type sacral fracture; he was seen by Ortho- conservative management recommended - had been managed by his PMD and DIRECTOR LIFE was on Morphine 15 mg po BID (daughter reported that in the past he was confused with Oxycontin),??Ruby 7/325 mg 1 tab po q4-6 h; he is also on scheduled Gabapentin and prn Flexeril -and a recent admission to [facility] from 04/28-04/30 for severe lower back pain when tapering Prednisone was added. On prednisone 10mg daily at time of event with plan for 2 more days 10mg and then 3 days 5mg daily. - Will resume prednisone 10mg daily. 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 - Will consult PT when more alert. ? 6. 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 - Holding now with bradycardia. Will follow. - monitor BP ? 7. Dyslipidemia - hold DIRECTOR LIFE Atorvastatin while he is npo ? 8 . AAA - has h/o AAA - US aorta on 04/27 showed 4.2X4.1 cm AAA, compared with prior US aorta in 12/2015 when it was 3.9X4.3 - follow up with Vascular surgery as outpatient. ? 9. Possible JACKSON - daughter reports that he snores heavily and has episodes of apnea during sleep - he refused to have sleep studies until now - continue to discuss with the patient that likely he will benefit from sleep studies DVT Prophylaxis:??Heparin SQ Code Status:??Full Code Disposition: Discharge pending further improvements in mentation and pain control. > 2 more days.Continue monitoring in ICU overnight. Stephany Farley MD [phone] (P) Text page (7am to 6pm) Interval History Patient given ativan overnight and somnolent when patient's daughter present during day. Patient also noting headache throughout day. Head CT done without any acute findings. Ruby with minimal improvement. Patient's mentation improved by end of day. Discussed plan at length with daughterRauqel. -Data reviewed today: I reviewed all new labs and imaging results over the last 24 hours. Physical Exam Temp: 98.1 ??F (36.7 ??C) Temp src: Oral BP: 141/72 Heart Rate: 108 Resp: 10 SpO2: 95 % O2 Device: Nasal cannula Oxygen Delivery: 3 LPM Vitals: 05/05/17 1522 05/05/17 2000 05/07/17 0549 Weight: 99.8 kg (220 lb) 98 kg (216 lb 0.8 oz) 97.2 kg (214 lb 4.6 oz) Vital Signs with Ranges Temp: [98.1 ??F (36.7 ??C)-99.3 ??F (37.4 ??C)] 98.1 ??F (36.7 ??C) Heart Rate: [49-129] 108 Resp: [9-27] 10 BP: (94-185)/(58-101) 141/72 FiO2 (%): [40 %] 40 % SpO2: [94 %-100 %] 95 % I/O last 3 completed shifts: In: 2705 [P.O.:645; I.V.:2059] Out: 3450 [Urine:3450] Constitutional: Patient somnolent, but wakes to voice. Answers questions slowly. Oriented to time, place, person. Mild pain at time of exam. Reports headache improved. Confused on timeline of events. Respiratory: Diminished breath sounds, patient does have right-sided expiratory wheezes noted. No cough. No respiratory distress. No crackles at time of exam. Cardiovascular: Regular rate and rhythm at time of exam, noting that patient has intermittently beentachycardic and bradycardic, though without symptoms. No LE peripheral edema. GI: Abdomen soft, nontender. Nondistended. Normoactive bowel sounds. Medications ??? dextrose 5% and 0.45% NaCl 10 mL/hr at 05/07/17 0908 ??? - MEDICATION INSTRUCTIONS - ??? metoprolol 25 mg Oral BID ??? hydrALAZINE 25 mg Oral Q8H CISCO ??? isosorbide mononitrate 30 mg Oral Daily ??? guaiFENesin 600 mg Oral BID ??? gabapentin 300 mg Oral TID ??? IV infusion builder WITH LARGE additive list Intravenous Q24H ??? sodium chloride (PF) 3 mL Intracatheter Q8H ??? heparin 5,000 Units Subcutaneous Q12H ??? famotidine 20 mg Intravenous Q24H ??? clindamycin 900 mg Intravenous Q8H ??? levofloxacin 250 mg Intravenous Q24H Data Recent Labs Lab 05/07/17 0450 05/06/17 1718 05/06/17 0445 05/05/17 2235 05/05/17 1529 05/05/17 1527 05/05/17 1520 WBC 11.9* -- 14.4* -- -- -- 17.7* HGB 12.5* -- 12.5* -- -- 14.3 14.3 MCV 99 -- 100 -- -- -- 99 PLT 150 -- 135* -- -- -- 170 NA 143 -- 143 144 -- 140 141 POTASSIUM 4.8 -- 4.5 5.0 -- 4.5 4.4 CHLORIDE 114* -- 115* 113* -- -- 107 CO2 20 -- 20 21 -- -- 23 BUN 25 -- 39* 46* -- -- 48* CR 1.52* -- 1.79* 1.95* -- -- 2.41* ANIONGAP 9 -- 8 10 -- -- 11 BALDEMAR 8.8 8.6 7.8* 7.8* -- -- 8.6 GLC 130* -- 129* 148* -- -- 126* ALBUMIN 2.6* -- 2.6* -- -- -- 3.3* PROTTOTAL 6.2* -- 6.0* -- -- -- 6.9 BILITOTAL 0.5 -- 0.6 -- -- -- 0.5 ALKPHOS 156* -- 144 -- -- -- 166* ALT 34 -- 33 -- -- -- 29 AST 46* -- 57* -- -- -- 22 TROPONIN -- -- -- -- 0.02 -- -- Imaging: Recent Results (from the past 24 hour(s)) XR Chest Port 1 View Narrative CHEST ONE VIEW PORTABLE 05/07/2017 5:07 AM HISTORY: Intubated and ventilated. COMPARISON: 05/05/2017. Impression IMPRESSION: Bilateral patchy pulmonary infiltrates, mostly interstitial in appearance. Patchy alveolar infiltrate in the right upper lobe is unchanged. Borderline cardiomegaly is unchanged. Pleural thickening laterally on the left, unchanged. Previous anterior cervical spinal fusion. Despite the history, no endotracheal tube is seen. MOLLY GARCIA MD CT Head w/o Contrast Narrative CT SCAN OF THE HEAD WITHOUT CONTRAST 05/07/2017 5:04 PM HISTORY: Severe headache, hypertension. No focal deficits, encephalopathy recovering from hypoxic event. TECHNIQUE: Axial images of the head and coronal reformations without IV contrast material. Radiation dose for this scan was reduced using automated exposure control, adjustment of the mA and/or kV according to patient size, or iterative reconstruction technique. COMPARISON: None. FINDINGS: There is no evidence of intracranial hemorrhage, mass, acute infarct or anomaly. There is generalized atrophy of the brain. There is low attenuation in the white matter of the cerebral hemispheres consistent with sequelae of small vessel ischemic disease. The visualized portions of the sinuses and mastoids appear normal. There is no evidence of trauma. Impression IMPRESSION: 1. No evidence of acute intracranial hemorrhage, mass, or herniation. 2. There is generalized atrophy of the brain. White matter changes are present in the cerebral hemispheres that are consistent with small vessel ischemic disease in this age patient. KATIA DAVID MD Afsaneh Ceja APRN CNP - 05/07/2017 5:24 PM CDT ICU Multi-Disciplinary Note Patient condition reviewed and discussed while on multidisciplinary rounds today. No interventions initiated by ICU providers. Negative head CT scan noted. The Critical Care service will continue to follow peripherally while patient is within the ICU. We are readily available should issues arise. Please feel free to contact us for anything with which we may be of assistance. Afsaneh Ceja MARIE SPENCER - 05/07/2017 4:58 AM CDT Patient was on and off of BiPAP 14/7 40% throughout the night with SpO2 in the mid to upper 90's. Gel pad and mepilex in place under BiPAP mask. Pt is on a 3L NC when off of the BiPAP. 2 prn duoneb's given overnight. BS coarse expiratory wheezes. Will cont to monitor. 05/07/2017 Marie Ritter RRT Milana Rodriguez MD - 05/06/2017 11:40 PM CDT Patient with intolerable pain on acetaminophen alone. I ordered gabapentin and low dose Ruby (home meds). RN concerned about alcohol withdrawal, experiencing hallucinations. CIWA, banana bag and ativan prn ordered for alcohol withdrawal. Stephany Farley MD - 05/06/2017 7:05 PM CDT [facility] Hospitalist Progress Note Date of Service (when I saw the patient): 05/06/2017 Assessment & Plan Speedy Mcduffie is a 76 year old male who was brought in for evaluation of unresponsiveness. ?? 1. Altered mental status/Acute toxic encephalopathy Patient found by daughter (Raquel, COAL BRIQUETTE MACHINE OPERATOR) after likely prolonged period of unresponsiveness and suspected aspiration. Airway was cleared, but patient was hypoxic in the 60s for what sounds like at least 20-40 minutes before oxygen was available. Patient responded to narcan and thus it was suspected that patient had an unintentional opioid overdose with worsening of renal function and taking scheduled morphine 15mg ER BID with Ruby 7.5/325 1-1.5 tabs PRN q4-6 hours started in the past week. Also had been taking gabapentin and flexeril. - Patient started on narcan drip initially and this has since been stopped. - Appreciate instructional design technologist recommendations. Had initially planned to transfer to step down this afternoon, but patient having episodes of bradycardia in 40s - 50s, with one strip noting a rate of 29. These seem to happen when patient is sleeping and are sinus in nature. Chainstitch Felled Seam Operator agrees with keeping patient in the ICU at this time and will continue to monitor overnight. - Continue to hold all narcotics, gabapentin, and flexeril. - Patient had period of requiring BiPAP and has since been weaned. - Daughter did also raise question of alcohol use and CIWAA monitoring has been ordered, though no PRN ativan at this time. Will follow. ?? 2. Suspected Aspiration PNA - Daughter (COAL BRIQUETTE MACHINE OPERATOR) found patient with large amount of material coming out of mouth - CXR- diffuse bilateral interstitial prominence, which could reflect mild edema or venous congestion; there is patchy opacification of the right upper lobe, possibly focal infection or aspiration - started on Levaquin and Clindamycin for suspected aspiration PNA and will continue - diet advanced by speech with follow up planned for tomorrow ?? 3. Acute hypoxic respiratory failure - due to problem #1 and #2 - management as above - improved, no longer requiring BiPAP. Supplemental O2. ?? 4. Acute on CKD - has CKD stage 3, Cr 04/28/2017 was 1.49 - now Cr 2.41, BUN 48 - 2L NS in ER - D5NS at 125cc/h - Renal function improving. Will follow. - strict I/O, daily weights ?? 5. Lower back pain - had a recent fall with nondisplaced insufficiency type sacral fracture; he was seen by Ortho- conservative management recommended - had been managed by his PMD and DIRECTOR LIFE was on Morphine 15 mg po BID (daughter reported that in the past he was confused with Oxycontin), Ruby 7/325 mg 1 tab po q4-6 h; he is also on scheduled Gabapentin and prn Flexeril -and a recent admission to [facility] from 04/28-04/30 for severe lower back pain when tapering Prednisone was added. On prednisone 10mg daily at time of event with plan for 2 more days 10mg and then 3 days 5mg daily. - Holding meds initially. Avoiding narcotics. Will consult PT when more alert. ?? 6. 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 - Holding now with episodic bradycardia. Will follow. - monitor BP - Metoprolol iv prn ordered ?? 7. Dyslipidemia - hold DIRECTOR LIFE Atorvastatin while he is npo ?? 8 . AAA - has h/o AAA - US aorta on 04/27 showed 4.2X4.1 cm AAA, compared with prior US aorta in 12/2015 when it was 3.9X4.3 - follow up with Vascular surgery as outpatient. ?? 9. Possible JACKSON - daughter reports that he snores heavily and has episodes of apnea during sleep - he refused to have sleep studies until now - continue to discuss with the patient that likely he will benefit from sleep studies ?? DVT Prophylaxis: Heparin SQ Code Status: Full Code ?? Disposition: Hopeful for discharge in coming days depending on mental status return to baseline, however, note patient did have prolonged period of hypoxia. PT consulted. ?? Stephany Farley MD [phone] (P) Text page (7am to 6pm) Interval History Patient slowly improving as far as alertness, but still unable to answer questions appropriately. Nolonger requiring BiPAP or narcan drip. Renal function improving. Episodes of sinus bradycardia notedin the afternoon, with one episode documented as low as 29. Patient to remain in the ICU overnight. -Data reviewed today: I reviewed all new labs and imaging results over the last 24 hours. I personally reviewed patient's EKG and rhythm strip during period of bradycardia. Physical Exam Temp: 100.4 ??F (38 ??C) Temp src: Bladder BP: 151/77 Heart Rate: 108 Resp: 16 SpO2: 96 % O2 Device:Nasal cannula Oxygen Delivery: 2 LPM Vitals: 05/05/17 1522 05/05/171999 Weight: 99.8 kg (220 lb) 98 kg (216 lb 0.8 oz) Vital Signs with Ranges Temp: [99 ??F (37.2 ??C)-100.4 ??F (38 ??C)] 100.4 ??F (38 ??C) Heart Rate: [58-108] 108 Resp: [8-30] 16 BP: (91-151)/(49-105) 151/77 FiO2 (%): [40 %] 40 % SpO2: [90 %-100 %] 96 % I/O last 3 completed shifts: In: 3182.5 [P.O.:240; I.V.:2942.5] Out: 2800 [Urine:2800] Constitutional: Drowsy, oriented to person and that he is in hospital. Not able to answer questions appropriately. No acute distress. Non-toxic. Respiratory: Coarse breath sounds bilaterally. No wheezes. Cardiovascular: Sinus, dani at times. Regular rhythm. No murmur. GI: Soft, nontender. Nondistended. Medications ??? dextrose 5% and 0.45% NaCl Stopped (05/06/17 1700) ??? - MEDICATION INSTRUCTIONS - ??? guaiFENesin 600 mg Oral BID ??? magnesium sulfate 2 g Intravenous Once ??? sodium chloride (PF) 3 mL Intracatheter Q8H ??? heparin 5,000 Units Subcutaneous Q12H ??? famotidine 20 mg Intravenous Q24H ??? clindamycin 900 mg Intravenous Q8H ??? levofloxacin 250 mg Intravenous Q24H Data Recent Labs Lab 05/06/17 1718 05/06/17 0445 05/05/17 2235 05/05/17 1529 05/05/17 1527 05/05/17 1520 WBC -- 14.4* -- -- -- 17.7* HGB -- 12.5* -- -- 14.3 14.3 MCV -- 100 -- -- -- 99 PLT -- 135* -- -- -- 170 NA -- 143 144 -- 140 141 POTASSIUM -- 4.5 5.0 -- 4.5 4.4 CHLORIDE -- 115* 113* -- -- 107 CO2 -- 20 21 -- -- 23 BUN -- 39* 46* -- -- 48* CR -- 1.79* 1.95* -- -- 2.41* ANIONGAP -- 8 10 -- -- 11 BALDEMAR 8.6 7.8* 7.8* -- -- 8.6 GLC -- 129* 148* -- -- 126* ALBUMIN -- 2.6* -- -- -- 3.3* PROTTOTAL -- 6.0* -- -- -- 6.9 BILITOTAL -- 0.6 -- -- -- 0.5 ALKPHOS -- 144 -- -- -- 166* ALT -- 33 -- -- -- 29 AST -- 57* -- -- -- 22 TROPONIN -- -- -- 0.02 -- -- Imaging: No results found for this or any previous visit (from the past 24 hour(s)). Jumana Hester, PT - 05/06/2017 4:59 PM CDT 05/06/17 1600 Quick Adds Type of Visit Initial PT Evaluation Living Environment Lives With spouse Living Arrangements house Number of Stairs to Enter Home 2 Number of Stairs Within Home (Multi level home) Transportation Available family or friend will provide;car Living Environment Comment Per family pt goes bewteen the cabin and home. There are stairs at bothlocations, pt was attempting to describe the cabin, family the home. Both have several stairs once inside. Self-Care Dominant Hand right Usual Activity Tolerance moderate Current Activity Tolerance poor Regular Exercise no Equipment Currently Used at Home walker, rolling Activity/Exercise/Self-Care Comment Family has been assisting at home as needed secondary to having a sacral frac ture ~ 1 year ago with in abillity to physically assist. Functional Level Prior Ambulation 1-->assistive equipment Transferring 1-->assistive equipment Fall history within last six months yes Number of times patient has fallen within last six months 1 Which of the above functional risks had a recent onset or change? ambulation;transferring;toileting;bathing;dressing Prior Functional Level Comment Per Daughter, pt was ambulating with the use of a WW. It took a bit to get going, but he was getting around okay at home. General Information Onset of Illness/Injury or Date of Surgery - Date 05/05/17 Referring Physician Aubrey Irvin MD Patient/Family Goals Statement Family hopeful to take pt home, but understand current rec for TCU. Per daughter there will be herself and another sibling taking turns assisting at home. Pertinent History of Current Problem (include personal factors and/or comorbidities that impact the POC) 76 yo male found unresponsive, airlifted to [facility] for ongoing treatment of unitnentional overdose with narcotics. PMH includes recent sacral fractures-per pt and family he was WB as tolerated with the use of a walker Precautions/Limitations fall precautions;oxygen therapy device and L/min (2L via NC) Cognitive Status Examination Orientation person;place;time Level of Consciousness lethargic/somnolent (flat, drifts off at times) Follows Commands and Answers Questions 75% of the time;able to follow single- step instructions Cognitive Comment STM deficits noted, family states he seems to be getting a little more clear Pain Assessment Patient Currently in Pain Yes, see Vital Sign flowsheet Posture Posture Comments Unable to fully sit secondary to pain in the sacrim Range of Motion (ROM) ROM Comment Limtied hip flexion L>R, limtied trunk rotation secondary to pain. Strength Strength Comments Demonstrates limited antigravity strength, pain, fatigue and weakness all contribute. Impaired activity tolerance from baseline Bed Mobility Bed Mobility Comments Sup>sit Max A x 2 Transfer Skills Transfer Comments Dependent via lift Gait Gait Comments Unable to assess secondary to pain Balance Balance Comments Sitting balance significantly impaired by pain Sensory Examination Sensory Perception Comments Unable to feel touch in B feet to the ankle, somewhat mid leg and able to feel at the knee level B. Muscle Tone Muscle Tone Comments Pt somewhat stiff/ridgid, pain a contributor Modality Interventions Planned Modality Interventions Cryotherapy General Therapy Interventions Planned Therapy Interventions balance training;bed mobility training;gait training;neuromuscular re-education;ROM;strengthening;stretching;transfer training;home program guidelines;progressive activity/exercise Clinical Impression Criteria for Skilled Therapeutic Intervention yes, treatment indicated PT Diagnosis Impaired gait Influenced by the following impairments pain, weakness, fatigue, decreased balance, decreased ROM Functional limitations due to impairments Decreased functional independence Clinical Presentation Stable/Uncomplicated Clinical Presentation Rationale See above Clinical Decision Making (Complexity) Low complexity Therapy Frequency` daily Predicted Duration of Therapy Intervention (days/wks) 1 week Anticipated Discharge Disposition Transitional Care Facility Risk & Benefits of therapy have been explained Yes Patient, Family & other staff in agreement with plan of care Yes [facility] TM 6 Clicks ?? 2016, Trustees of [facility], under license to [employer]. All rights reserved. 6 Clicks Short Forms Basic Mobility Inpatient Short Form [facility]??? 6 Clicks V.2 Basic Mobility Inpatient Short Form 1. Turning from your back to your side while in a flat bed without using bedrails? 2 - A Lot 2. Moving from lying on your back to sitting on the side of a flat bed without using bedrails? 2 - ALot 3. Moving to and from a bed to a chair (including a wheelchair)? 1 - Total 4. Standing up from a chair using your arms (e.g., wheelchair, or bedside chair)? 1 - Total 5. To walk in hospital room? 1 - Total 6. Climbing 3-5 steps with a railing? 1 - Total Basic Mobility Raw Score (Score out of 24.Lower scores equate to lower levels of function) 8 Total Evaluation Time Total Evaluation Time (Minutes) 10 05/06/17 1600 Quick Adds Type of Visit Initial PT Evaluation Living Environment Lives With spouse Living Arrangements house Number of Stairs to Enter Home 2 Number of Stairs Within Home (Multi level home) Transportation Available family or friend will provide;car Living Environment Comment Per family pt goes bewteen the cabin and home. There are stairs at bothlocations, pt was attempting to describe the cabin, family the home. Both have several stairs once inside. Self-Care Dominant Hand right Usual Activity Tolerance moderate Current Activity Tolerance poor Regular Exercise no Equipment Currently Used at Home walker, rolling Activity/Exercise/Self-Care Comment Family has been assisting at home as needed secondary to having a sacral frac ture ~ 1 year ago with in abillity to physically assist. Functional Level Prior Ambulation 1-->assistive equipment Transferring 1-->assistive equipment Fall history within last six months yes Number of times patient has fallen within last six months 1 Which of the above functional risks had a recent onset or change? ambulation;transferring;toileting;bathing;dressing Prior Functional Level Comment Per Daughter, pt was ambulating with the use of a WW. It took a bit to get going, but he was getting around okay at home. General Information Onset of Illness/Injury or Date of Surgery - Date 05/05/17 Referring Physician Aubrey Irvin MD Patient/Family Goals Statement Family hopeful to take pt home, but understand current rec for TCU. Per daughter there will be herself and another sibling taking turns assisting at home. Pertinent History of Current Problem (include personal factors and/or comorbidities that impact the POC) 76 yo male found unresponsive, airlifted to [facility] for ongoing treatment of unitnentional overdose with narcotics. PMH includes recent sacral fractures-per pt and family he was WB as tolerated with the use of a walker Precautions/Limitations fall precautions;oxygen therapy device and L/min (2L via NC) Cognitive Status Examination Orientation person;place;time Level of Consciousness lethargic/somnolent (flat, drifts off at times) Follows Commands and Answers Questions 75% of the time;able to follow single- step instructions Cognitive Comment STM deficits noted, family states he seems to be getting a little more clear Pain Assessment Patient Currently in Pain Yes, see Vital Sign flowsheet Posture Posture Comments Unable to fully sit secondary to pain in the sacrim Range of Motion (ROM) ROM Comment Limtied hip flexion L>R, limtied trunk rotation secondary to pain. Strength Strength Comments Demonstrates limited antigravity strength, pain, fatigue and weakness all contribute. Impaired activity tolerance from baseline Bed Mobility Bed Mobility Comments Sup>sit Max A x 2 Transfer Skills Transfer Comments Dependent via lift Gait Gait Comments Unable to assess secondary to pain Balance Balance Comments Sitting balance significantly impaired by pain Sensory Examination Sensory Perception Comments Unable to feel touch in B feet to the ankle, somewhat mid leg and able to feel at the knee level B. Muscle Tone Muscle Tone Comments Pt somewhat stiff/ridgid, pain a contributor Modality Interventions Planned Modality Interventions Cryotherapy General Therapy Interventions Planned Therapy Interventions balance training;bed mobility training;gait training;neuromuscular re-education;ROM;strengthening;stretching;transfer training;home program guidelines;progressive activity/exercise Clinical Impression Criteria for Skilled Therapeutic Intervention yes, treatment indicated PT Diagnosis Impaired gait Influenced by the following impairments pain, weakness, fatigue, decreased balance, decreased ROM Functional limitations due to impairments Decreased functional independence Clinical Presentation Stable/Uncomplicated Clinical Presentation Rationale See above Clinical Decision Making (Complexity) Low complexity Therapy Frequency` daily Predicted Duration of Therapy Intervention (days/wks) 1 week Anticipated Discharge Disposition Transitional Care Facility Risk & Benefits of therapy have been explained Yes Patient, Family & other staff in agreement with plan of care Yes [facility] TM 6 Clicks ?? 2016, Trustees of [facility], under license to [employer]. All rights reserved. 6 Clicks Short Forms Basic Mobility Inpatient Short Form [facility]??? 6 Clicks V.2 Basic Mobility Inpatient Short Form 1. Turning from your back to your side while in a flat bed without using bedrails? 2 - A Lot 2. Moving from lying on your back to sitting on the side of a flat bed without using bedrails? 2 - ALot 3. Moving to and from a bed to a chair (including a wheelchair)? 1 - Total 4. Standing up from a chair using your arms (e.g., wheelchair, or bedside chair)? 1 - Total 5. To walk in hospital room? 1 - Total 6. Climbing 3-5 steps with a railing? 1 - Total Basic Mobility Raw Score (Score out of 24.Lower scores equate to lower levels of function) 8 Total Evaluation Time Total Evaluation Time (Minutes) 10 Marie Zuñiga, WARP TIER - 05/06/2017 1:30 PM CDT 05/06/17 0959 General Information Onset Date 05/05/17 Start of Care Date 05/06/[address] Mccullough Patient Profile Review/OT: Additional Occupational Profile Info See Profile for full history and prior level of function Patient/Family Goals Statement Patient stated he was dry. Swallowing Evaluation Bedside swallow evaluation Behaviorial Observations Alert;Distractible;Confused Mode of current nutrition NPO Respiratory Status O2 Supply Type of O2 supply Nasal cannula Comments Speedy Mcduffie is a 76 year old male who was brought in for evaluation of unresponsiveness. AMS due to unintentional overdose. Clinical Swallow Evaluation Oral Musculature generally intact Structural Abnormalities none present Dentition present and adequate Mucosal Quality dry Mandibular Strength and Mobility intact Oral Labial Strength and Mobility WFL Lingual Strength and Mobility impaired protrusion;impaired anterior elevation;impaired coordination Velar Elevation intact Buccal Strength and Mobility intact Laryngeal Function Cough;Throat clear;Swallow;Voicing initiated;Dry swallow palpated Oral Musculature Comments Mild impairment. Additional Documentation Yes Swallow Eval Feeding Assistance frequent cues/help required Clinical Swallow Eval: Thin Liquid Texture Trial Mode of Presentation, Thin Liquids spoon;straw;self-fed;fed by clinician;cup Volume of Liquid or Food Presented 4 oz of water. Oral Phase of Swallow Premature pharyngeal entry Pharyngeal Phase of Swallow impaired;repeated swallows Diagnostic Statement Delayed cough but did not appear directly related to his swallow. Baseline cough due to aspiration of his vomit. Clinical Swallow Eval: [place] Thick Liquid Texture Trial Mode of Presentation, [place] spoon;self-fed Volume of [place] Presented 3 teaspoons Oral Phase, [place] WFL Pharyngeal Phase, [place] intact Clinical Swallow Eval: Puree Solid Texture Trial Mode of Presentation, Puree spoon;self-fed Volume of Puree Presented 3 teaspoons Oral Phase, Puree WFL Pharyngeal Phase, Puree impaired;repeated swallows Diagnostic Statement No overt Sx of aspiration. Swallow Compensations Swallow Compensations Alternate viscosity of consistencies;Pacing;Reduce amounts;Multiple swallow Results Suspect silent aspiration General Therapy Interventions Planned Therapy Interventions Dysphagia Treatment Dysphagia treatment Modified diet education;Instruction of safe swallow strategies Swallow Eval: Clinical Impressions Skilled Criteria for Therapy Intervention Skilled criteria met. Treatment indicated. Functional Assessment Scale (FAS) 4 Treatment Diagnosis Mild to moderate oral and pharyngeal dysphagia Diet texture recommendations Full liquid;Thin liquids Recommended Feeding/Eating Techniques alternate between small bites and sips of food/liquid;check mouth frequently for oral residue/pocketing;maintain upright posture during/after eating for 30 mins;small sips/bites Therapy Frequency daily Predicted Duration of Therapy Intervention (days/wks) 1 week. Anticipated Discharge Disposition inpatient rehabilitation facility Risks and Benefits of Treatment have been explained. Yes Patient, family and/or staff in agreement with Plan of Care Yes Clinical Impression Comments Patient presents with mild to moderate oral and pharyngeal dysphagia atbedside. Deficits include: premature entry of thin liquids with minimal delay. Cough x1 but not sureif directly related to his swallow function. (Baseline cough) He tolerate teaspoon amount of nectar thick liquid without overt Sx of aspiration. He took several swallows of pudding with adequate bolus control, AP transport and clearing. Barriers to safe swallowing at this time is ability to have HOB fully upright secondary to pain, confusion and fatigue. Recommend: 1. Cautiously inititate a full liquid diet. 2. Upright as high as tolerated, small sips/bites, alternate liquids/solids, crush medication and place in pudding. If coughing noted after swallows of thin liquids change to nectar consistency. Total Evaluation Time Total Evaluation Time (Minutes) 20 Aubrey Irvin MD - 05/06/2017 9:51 AM CDT [facility] Critical Care Service Progress Note Date of Service: 05/06/2017 Assessment & Plan Speedy Mcduffie is a 76 year old male who was admitted on 05/05/2017 with altered mental status following a possible unintentional narcotic overdose. WINE MERCHANT: Alert, appropriate, oriented this AM. - Altered mental status: Improving. As exam is nonfocal I don't think there's benefit in obtaining CT. - Unintentional overdose: Patient has baseline CKD with superimposed DEJA and was recently put on MSContin; suspect accumulation of active metabolites that he couldn't clear quickly enough. Good response to naloxone; titrated infusion down to 0.2 mg/hr last night and stopped it this AM. Follow. - History of EtOH, narcotic abuse: Follow for evidence of withdrawal. Pulm: Weaned from BiPAP to 2L NC this morning. - Pulmonary insufficiency: Improving. - Wheezing: Added albuterol nebs this morning. - ?Aspiration pneumonia: Has large amount of secretions and history of probable aspiration. Will continue abx for now. - ?JACKSON: Reported by family, has not been formally diagnosed. Can keep BiPAP for hs/nap use. CV: 70s-80s, 120s-130s/60s-70s. - HTN: On prn metoprolol for now, resume scheduled as indicated. FEN/GI: Abdomen benign. - NPO for now. WARP TIER evaluation to assess swallow, consider starting diet if he remains alert and has no dysphagia. : UOP good overnight; Cr down at 1.79. - DEJA on CKD: Creatinine improving. Changed IVF to D5/0.45 @125. - CK mildly up at 325, urine is clear; not concerned for rhabdomyolysis. Heme: Hb 12.5. Musculoskeletal: Extremities warm, well-perfused. - Sacral fracture: Nonoperative. Supportive cares. Endocrine: Glucose 92-135. ID: Afebrile, WBCs 14 (17). - ?Aspiration pneumonia: Clindamycin, levofloxacin. ICU: SQH, H2. - Critical care issues have resolved; ICU will sign off. General cares: DVT Prophylaxis: Heparin SQ GI Prophylaxis: H2 Gauri Restraints: Restraints for medical healing needed: NO Family update by me today: No Current lines are required for patient management Access: PIV 05/05, dial 05/05 Aubrey Irvin MD, PhD Surgical critical care May 06, 2017, 9:51 AM Time Spent on this Encounter Billing: I spent 35 minutes bedside and on the inpatient unit today managing the critical care of Speedy Mcduffie in relation to the issues listed in this note. Main Plans for Today - Stop naloxone infusion. - PT, WARP TIER. - Possible transfer from ICU. Interval History Patient was progressively more awake through the evening after ~2200. Tolerated wean from BiPAP to 2LNC while awake. This morning complains of lower back and left leg pain, which are unchanged and baseline. He denies dyspnea, chest pain, nausea/vomiting, or numbness/weakness. Physical Exam Temp: 99.9 ??F (37.7 ??C) Temp src: Bladder Temp Min: 98.2 ??F (36.8 ??C) Max: 99.9 ??F (37.7 ??C) BP: 127/71 Pulse: 82 Heart Rate: 101 Resp: 16 SpO2: 97 % O2 Device: Nasal cannula Oxygen Delivery: 2 LPM Vitals: 05/05/17 1522 05/05/171999 Weight: 99.8 kg (220 lb) 98 kg (216 lb 0.8 oz) I/O last 3 completed shifts: In: [I.V.:] Out: 1700 [Urine:1700] GEN: Alert, appropriate answers to questions, no apparent distress EYES: Anicteric, pupils constricted HEENT: NC/AT CV: RRR PULM/CHEST: Chest coarse bilaterally GI: Abdomen soft, NT/ND : Dial in place with clear urine EXTREMITIES: Warm, well-perfused NEURO: GCS 15, strength/sensation nonfocal SKIN: Warm PSYCH: Affect appropriate Imaging personally reviewed: No new imaging today Medications ??? dextrose 5% and 0.9% NaCl 125 mL/hr at 05/06/17 0854 ??? naloxone (NARCAN) infusion ADULT - opioid reversal Stopped (05/06/17 0936) ??? - MEDICATION INSTRUCTIONS - ??? sodium chloride (PF) 3 mL Intracatheter Q8H ??? heparin 5,000 Units Subcutaneous Q12H ??? famotidine 20 mg Intravenous Q24H ??? clindamycin 900 mg Intravenous Q8H ??? levofloxacin 250 mg Intravenous Q24H Data Recent Labs Lab 05/06/17 0445 05/05/17 2235 05/05/17 1529 05/05/17 1527 05/05/17 1520 WBC 14.4* -- -- -- 17.7* HGB 12.5* -- -- 14.3 14.3 MCV 100 -- -- -- 99 PLT 135* -- -- -- 170 NA 143 144 -- 140 141 POTASSIUM 4.5 5.0 -- 4.5 4.4 CHLORIDE 115* 113* -- -- 107 CO2 20 21 -- -- 23 BUN 39* 46* -- -- 48* CR 1.79* 1.95* -- -- 2.41* ANIONGAP 8 10 -- -- 11 BALDEMAR 7.8* 7.8* -- -- 8.6 GLC 129* 148* -- -- 126* ALBUMIN 2.6* -- -- -- 3.3* PROTTOTAL 6.0* -- -- -- 6.9 BILITOTAL 0.6 -- -- -- 0.5 ALKPHOS 144 -- -- -- 166* ALT 33 -- -- -- 29 AST 57* -- -- -- 22 TROPONIN -- -- 0.02 -- -- Recent Results (from the past 24 hour(s)) Chest XR, 1 view PORTABLE Narrative XR CHEST PORT 1 VW 05/05/2017 3:40 PM HISTORY: Aspiration. COMPARISON: None. Impression IMPRESSION: There is diffuse bilateral interstitial prominence, which could reflect mild edema or venous congestion. In addition, there is patchy opacification of the right upper lobe, possibly focal infection or aspiration. No pleural effusions or pneumothorax appreciated. Heart size is upper limits of normal. KYA INTERIANO MD Molly Fernandez RT - 05/06/2017 5:25 AM CDT Pt on BIPAP 13/5 40% throughout the night. Gel pad and mepilex on under the mask. Will continue to follow. 05/06/2017 Molly Fernandez documented in this encounter H&P Notes Miladys Mccullough MD - 05/05/2017 5:34 PM CDT [facility] History and Physical Hospitalist Date of Admission: 05/05/2017 Assessment & Plan Speedy Mcduffie is a 76 year old male who was brought in for evaluation of unresponsiveness. 1. Altered mental status/Acute toxic encephalopathy - suspected due to unintentional opioid overdose - he has problems with lower back pain more recently after he had a fall in March 2017 - he was started on Morphine 15 mg po BID, more recently (last week) started on Ruby 7.5/325 mg 1 tab po q4-6h prn - he is also on scheduled Gabapentin and Flexeril prn - his daughter- who is a COAL BRIQUETTE MACHINE OPERATOR does not think that he overdosed intentionally; she is giving him his scheduled morning and evening dose of MS contin - as per report- 14 left of his Hydrocodone 7.5-325mg filled 04/27 of which there were 30 and 17 leftof his morphine 15mg extended release filled 04/27 of which there were 28. - he was unresponsive to sternal rub initially- responded to Narcan 0.4 mg given by EMS, then becamemore sleepy- 0.4 mg iv Narcan given in ER and started on Narcan drip; got 2 more boluses of Narcan 0.4 mg respectively 1 mg iv- but despite this - he remains minimally responsive - initial ABG with pH 7.22, pCO2 48, pO2 112; repeat ABG- pH 22, PCO2 43, pO2 198 - LA 1.5 - acetaminophen level <2, salicylate level<2 - BP was normal initially- then dropped to 81/64- but responded to iv fluids- last BP 141/81 - discussed with ICU attending; formal instructional design technologist consult - continue BiPAP for now- wean off as able - continue Narcan drip; hold all narcotics, Gabapentin, flexeril - repeat ABG at 22:00 - U tox 2. Suspected Aspiration PNA - daughter reported she found him with large amount of material coming out of his mouth - CXR- diffuse bilateral interstitial prominence, which could reflect mild edema or venous congestion; there is patchy opacification of the right upper lobe, possibly focal infection or aspiration - no h/o dysphagia - no fever, WBCs 17.7, :A 1.5 - started on Levaquin and Clindamycin - BiPAP for now - monitor fever curve and WBCs trend - speech eval in am 3. Acute hypoxic respiratory failure - due to problem #1 and #2 - management as above - continue with BiPAP for now 4. Acute on CKD - has CKD stage 3, cr back in 04/28/2017 was 1.49 - now cr 2.41, BUN 48 - received 2 boluses NS in ER - continue iv fluids D5NS at 125cc/h - repeat BMP at 10pm and in am - strict I/O, daily weights 5. Lower back pain - had a recent fall with nondisplaced insufficiency type sacral fracture; he was seen by Ortho- conservative management recommended - had been managed by his PMD and DIRECTOR LIFE was on Morphine 15 mg po BID (daughter reported that in the past he was confused with Oxycontin), Ruby 7/325 mg 1 tab po q4-6 h; he is also on scheduled Gabapentin and prn Flexeril -and a recent admission to [facility] from 04/28-04/30 for severe lower back pain when tapering Prednisone was added - it seems that he was doing fine at home, walking with walker - now holding all narcotics, Gabapentin, Flexeril - may need to be seen by PT when he will be more awake 6. H/o HTN - DIRECTOR LIFE on Metoprolol 50 mg po BID- hold it for now given AMS and isolated low BP - monitor BP - Metoprolol iv prn ordered 7. Dyslipidemia - hold DIRECTOR LIFE Atorvastatin while he is npo 8 . AAA - has h/o AAA - US aorta on 04/27 showed 4.2X4.1 cm AAA, compared with prior US aorta in 12/2015 when it was 3.9X4.3 - follow up with Vascular surgery as outpatient. 9. Possible JACKSON - daughter reports that he snores heavily and has episodes of apnea during sleep - he refused to have sleep studies until now - continue to discuss with the patient that likely he will benefit from sleep studies DVT Prophylaxis: Heparin SQ Code Status: Full Code Disposition: Expected discharge in 2-3 days once mentation back to baseline and creatinine improves. Miladys Mccullough Primary Care Physician Dr. Celina Coley Chief Complaint Unresponsiveness History is obtained from the patient's daughter who was present in ER at the time of my examination;she is a COAL BRIQUETTE MACHINE OPERATOR at [employer]. History of Present Illness Speedy Mcduffie is a 76 year old male with PMH of HTN, HLP, AAA, CKD stage 3, lower back pain- who was brought in for evaluation of unresponsiveness. He is an active gentleman who lives with his ; he had recent lower back pain due to a sacral fracture s/p recent fall. He had been managed by his PMD; he was started on Morphine 15 mg po BID (daughter reported that in the past he was confused with Oxycontin so MS contin was chosen this time); more recently- he was started on Ruby 7/325 mg 1 tab poq4-6 h; he is also on scheduled Gabapentin and prn Flexeril. He was recently admitted to [facility] from 04/28- 04/30/2017 for severe back pain; MRI of the spine showed nondisplaced insufficiencytype sacral fracture; he was seen by Ortho- conservative management recommended.; he was discharged on tapering Prednisone and as per the daughter he was doing fine at home since then. She saw him last time last night at 11 pm when he acted normal although she did noticed him maybe a little sleepier. Then today, at 11am , she went to his place and found him in the bed, unresponsive with large amount of material like a bubble coming out of his mouth; he did not respond to sternal rub and she called 911; he was air lifted to [facility]. As per report- he was given Narcan 0.4 mg iv by EMS and he became more responsive; later on, in ER, he became again more sleepy- another Narcan 0.4 mg given with transient response so he was started on Narcan drip. As per the daughter- he was noted at home to have some mild cough productive of greenish sputum the last couple of days. He also seemed to be more congested; there was no reported SOB or fever at home;as per the daughter- he does not have h/o dysphagia; no recent headache, no chest pain, no abdominalpain, no diarrhea; he has some constipation for which he takes stool softeners (last BM was yesterday); he also has some mild chronic LLE swelling. In ER- he was seen by Dr Martinez; initial BP 125/82, at some point dropped to 81/64 but improved with iv fluids to 111/76, HR 82, RR 18, O2 sat 100% on BiPAP, temp 98.2. In ER he was put on BiPAP; he was given another dose of Narcan 0.4 mg iv follwed by Narcan drip; he received 2 more boluses of Narcan because he was still lethargic. He was given 2 boluses of NS and 1 dose of Levaquin. Past Medical History I have reviewed this patient's medical history and updated it with pertinent information if needed. Past Medical History: Diagnosis Date ??? Arthritis neck ??? Basal cell carcinoma ??? 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 Chronic pain- lower back Hyperlipidemia CKD stage 3 AAA ??? Hypertension Past Surgical History I have reviewed this patient's surgical history and updated it with pertinent information if needed. Past Surgical History: Procedure Laterality Date ??? APPENDECTOMY ??? BACK SURGERY lumbar fusion x2 ??? ENT SURGERY tonsils ??? EXCISE TOENAIL(S) 09/30/2012 Procedure: EXCISE TOENAIL(S);; Surgeon: Sal Chaparro DPM; Location: [facility] OR ??? ORTHOPEDIC SURGERY left foot surg ??? ORTHOPEDIC SURGERY cervical fusion x2 ??? REMOVE HARDWARE FOOT 09/30/2012 Procedure: REMOVE HARDWARE FOOT; hardware removel left foot; Surgeon: Sal Chaparro DPM; Location: [facility] OR ??? THORACIC SURGERY left lung surg decortifcation ??? wisdom teeth[ Prior to Admission Medications Prior to Admission Medications Prescriptions Last Dose Informant Patient Reported? Taking? ASPIRIN PO Daughter Yes Yes Sig: Take 81 mg by mouth daily ATORVASTATIN CALCIUM PO Daughter Yes Yes Sig: Take 40 mg by mouth daily CYCLOBENZAPRINE HCL PO Daughter Yes Yes Sig: Take 10 mg by mouth 2 times daily as needed GABAPENTIN PO Daughter Yes Yes Sig: Take 300-900 mg by mouth daily as needed HYDROcodone-acetaminophen (NORCO) 7.5-325 MG per tablet Daughter Yes Yes Sig: Take 1-1.5 tablets by mouth every 4 hours as needed for moderate to severe pain METOPROLOL TARTRATE PO Daughter Yes Yes Sig: Take 50 mg by mouth 2 times daily. Morphine Sulfate (MS CONTIN PO) Daughter Yes Yes Sig: Take 15 mg by mouth 2 times daily PREDNISONE PO Daughter Yes Yes Sig: Filled on 04/30/17. Take 15 mg x3 days; 10 mg x3 days. And 5 mg x3 days. TERAZOSIN HCL PO Daughter Yes Yes Sig: Take 5 mg by mouth At Bedtime Facility-Administered Medications: None Allergies Allergies Allergen Reactions ??? Novocain [Procaine Hcl] Bumps in throat ??? Penicillins Rash Social History I have reviewed this patient's social history and updated it with pertinent information if needed. He used to smoke but he has quit smoking in 1984. He does not have any smokeless tobacco history on file; daughter reports he drinks 3-4 glasses of votdka daily and some beer; he did not have withdrawal symptoms in the past; there is no reported illicit drug abuse Family History I have reviewed this patient's family history and updated it with pertinent information if needed. Father because AAA when he was 65 y/o; mother had a stroke and breast cancer; he has a brother with CAD/CABG and AAA; he has 2 daughter- 1 daughter with dyslipidemia Review of Systems The 10 point Review of Systems is negative other than noted in the HPI. Physical Exam Temp: 98.2 ??F (36.8 ??C) Temp src: Temporal BP: 141/81 Pulse: 82 Heart Rate: 87 Resp: 18 SpO2: 100 % O2 Device: BiPAP/CPAP Vital Signs with Ranges Temp: [98.2 ??F (36.8 ??C)] 98.2 ??F (36.8 ??C) Pulse: [82-89] 82 Heart Rate: [71-91] 87 Resp: [12-27] 18 BP: (81-141)/(64-89) 141/81 SpO2: [98 %-100 %] 100 % 220 lbs 0 oz Constitutional: comfortable, on BiPAP Eyes: pupils narrow HEENT: head- normocephalic, atraumatic Respiratory: bilateral coarse breath sounds at bases, no wheezing, no rales Cardiovascular: S1S2, RRR, no murmurs, no rubs GI: abdomen- soft, nonT, nonD, BS present Lymph/Hematologic:no palpable lymphadenopathy Skin: intact, no rashes, no cyanosis Musculoskeletal: no joint deformities Neurologic: lethargic, not following commands most of the time but occasionally moves all extremities to sternal rub Psychiatric: unable to assess Data Data reviewed today: I personally reviewed the EKG tracing showing NSR at 80bmp, some nonspecific ST-T changes and the chest x-ray image(s) showing as above. Recent Labs Lab 05/05/17 1529 05/05/17 1527 05/05/17 1520 WBC -- -- 17.7* HGB -- 14.3 14.3 MCV -- -- 99 PLT -- -- 170 NA -- 140 141 POTASSIUM -- 4.5 4.4 CHLORIDE -- -- 107 CO2 -- -- 23 BUN -- -- 48* CR -- -- 2.41* ANIONGAP -- -- 11 BALDEMAR -- -- 8.6 GLC -- -- 126* ALBUMIN -- -- 3.3* PROTTOTAL -- -- 6.9 BILITOTAL -- -- 0.5 ALKPHOS -- -- 166* ALT -- -- 29 AST -- -- 22 TROPONIN 0.02 -- -- Recent Results (from the past 24 hour(s)) Chest XR, 1 view PORTABLE Narrative XR CHEST PORT 1 VW 05/05/2017 3:40 PM HISTORY: Aspiration. COMPARISON: None. Impression IMPRESSION: There is diffuse bilateral interstitial prominence, which could reflect mild edema or venous congestion. In addition, there is patchy opacification of the right upper lobe, possibly focal infection or aspiration. No pleural effusions or pneumothorax appreciated. Heart size is upper limits of normal. KYA INTERIANO MD documented in this encounter Consult Notes Arpita Nelson MD - 05/10/2017 11:40 AM CDT Note is dictated. 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 He is essentially asymptomatic. I rec no additional anticoagulation, OT assessment before driving - may be done as outpatient (in about 1 mo after d/c). I discussed potential STM deficits In a future. Current NE is very unremarkable. Cheyenne Schilling - 05/10/2017 12:00 AM CDT Chief Complaint: Evaluate for cardiorespiratory arrest and abnormal MRI of the brain. History Of Present Illness: Mr. Speedy Mcduffie is a 76-year-old white headed gentleman who is accompanied by his daughter. He was admitted to the hospital on 05/05/2017 for witnessed episode of trouble breathing and a low blood pressure. His daughter found him with a blue color on his face at home. Sheturned him to the left side and some vomit came out. She did not give him CPR, called the ambulance.He did have lower blood pressures. He was admitted to ICU for altered mental status and acute toxic encephalopathy. He also had suspected aspiration pneumonia, acute hypoxic respiratory failure, acute kidney failure. This was all attributed to toxic metabolic encephalopathy due to multiple medications prescribed for pain control due to recent back fracture. The patient has been in ICU. An MRI of the brain was ordered, performed yesterday, which I personally reviewed, which showed ischemic areas in the left hypo-canthus and left temporal area. They are consistent with hypoxic ischemic brain injury. Since admission to the hospital, the patient was transferred to the regular floor with improvement of his general physical condition and mental status. His respiratory and kidney failure have been resolving. His mental status has been quite good. His medications for pain control were significantly reduced. Medications: The patient currently is on IV fluids, levofloxacin, baby aspirin, atorvastatin, Hytrin, lisinopril, famotidine, Tylenol, hydralazine, prednisone, gabapentin, heparin and clindamycin. Allergies: Novocaine and penicillin. Social History: The patient lives with his . He is not a drinker and not a smoker. Family History: Noncontributory to this presentation. Diagnostic Studies: He has a sodium of 144. Current creatinine is 1.49. White cell count is 7.7. No left shift is seen. His MRI of the brain is personally reviewed. His echocardiogram has been performed and showed no evidence of a clot, normal ejection fraction. Physical Exam: Vital Signs: He is afebrile with a blood pressure of 118/72, heart rate 104, respiratory rate 16, O2sat 98. General: He is in no acute distress. Lungs: Clear to auscultation bilaterally. Cardiovascular: S1, S2 cardiac sounds with no murmurs or bruits. Extremities: Warm. Pedal pulses are present. There is no evidence of pedal edema. Neurologic: He is awake and alert x3 with clear speech and language function. He follows commands. His recall is 1 out of 3. Overall, I do not see any short-term memory problems. The patient moves bothextremities against gravity. His has full strength, symmetrical fine finger motion bilaterally. He has preserved reflexes and his sensory exam was intact to light touch, pin pick, vibration. His coordin ation is intact to [id number]. I did not his gait exam. 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 At this point, he has improvement in mental status. His MRI did confirm areas of ischemia which are consistent with hypo-perfusion. At this point, his cardiac studies are normal. I would recommend to continue baby aspirin. I do not think we need to proceed with special neurological interventions. He did not really have an embolic stroke. I anticipate improvement and resolution of his ischemic areas in the brain. At this point, he appears to be asymptomatic. In the future, he may be found to have some short-te rm memory deficits. This will be hard to assess now due to hospitalization and multiple medications used. I do not have any specific neurological recommendations at this point, but upon discharge, I recommend no driving and proceed with occupational therapy assessment of cognitive function within appro ximately 1 month of the discharge. If the patient has normal cognitive function, he could resume activities of daily living. I discussed the recovery with patient and his daughter, who is a nurse. I discussed potential short-term memory deficits and even remote seizure, as there has been damage to hypo-canthus. We are not seeing any symptoms right now, and I do not think any special interventions will be needed. At this point, no neurological workup or followup will be needed, unless there are issues consistentwith potential seizures or short-term memory deficits. I explained all to patient and family. They are in agreement with the plan. Please call if you have any additional neurological questions. Arpita Nelson MD Document: [id number] REEDER\. Margaret Laguna MD - 05/08/2017 10:11 AM CDT [facility] Palliative Care Consultation Note Patient: Speedy Mcduffie Date of Admission: 05/05/2017 Requesting provider/team: Dr Farley Reason for consult: Pain management Recommendations: Please see assessment below for rationale - discontinue hydrocodone/APAP - tylenol 1000mg tid - consider oxycodone 2.5mg q4h prn - consider diclofenac 25mg bid, monitor renal function as outpatient - consider to taper off gabapentin Thank you for the opportunity to participate in the care of this patient and family. Our team will follow. Please feel free to contact the on-call Palliative provider with any urgent needs. Margaret Laguna Pager: [phone] [facility] Inpatient Team Consult pager [phone] (M-F 8-4:30) After-hours Answering Service [phone] Palliative Clinic: [phone] Assessment Speedy Mcduffie is a 76 year old male with lower back pain 2/2 incomplete sacral fracture after a fall managed conservatively with opioids admitted 05/05 for suspected unintentional opioid overdose and aspiration. Course complicated by acute hypoxic respiratory failure, altered mental status, acute on CKD. Symptoms: Pain: didn't tolerate opioids throughout his treatment course (a little over a week DIRECTOR LIFE): felt somnolent. He doesn't recall making changes to his use the day of admission, also didn't take flexaril or gabapentin in addition. He has chronic upper back pain since a fracture in childhood. Had good response to diclofenac in thepast. Flexeril was available prn, hasn't used recently, doesn't want to restart this. States he was given gabapentin as needed after a dental procedure (?treatment of postoperative pain). Doesn't recall noticing an effect on his back, also hasn't taken it regularly. In light of this andhis decreased renal function, would taper off gabapentin, which can be done rapidly if he hasn't taken it DIRECT[employer]. Lidocaine patches didn't help in the past. Gets good relief with heat and ice, using heating pad now. I feel a trial of low-dose diclofenac with monitoring of his renal function would be a good option at this time. He is already on misoprostol DIRECTOR LIFE, which I assume was started with the diclofenac previously. He denies any h/o GERD, reflux, etc. Nothing found on his chart either. He does have elevated BNP, LINDSAY not consistent with heart failure. Social: Living situation: with his , who also is healing from a fracture Support system: 2 daughters, one is an RN Functional status: has been good. He is doing the shopping and laundry while his is sick. Advance Care Planning: patient is working on a [employer] at home, wants to designate his daughters and as agents. Wants to talk to them about treatment limitations including code status History of Present Illness Sources of History:patient and electronic health record Pt recalls that his daughter found him down and brought him to the hospital. He is aware that likelyhe overdosed on his pain medications and understandably shaken. He reports decent pain control when laying still, but significant pain with movement when he doesn't have his medications. Still, he doesn't want to go back on the previous meds including cyclobenzaprine, gabapentin. No other concerns. Has regular bowel movements, laxatives are managed by his daughter. When I visit he is sleepy and dozes off at times. He states he didn't get sleep last night, also received one 5/325 Ruby about 90min prior to my visit. ROS: Palliative Symptom Review (0=no symptom/no concern, 1=mild, 2=moderate, 3=severe): Pain: 2 Fatigue: 1 Nausea: 0 Constipation: 0 Diarrhea: 0 Depressive Symptoms: 0 Anxiety: 0 Drowsiness: 1 Poor Appetite: 0 Shortness of Breath: 0 Insomnia: 0 Delirium: 0 Other: 0 Overall (0 good/no concerns, 3 very poor): 1 Past Medical History: Past Medical History: Diagnosis Date ??? AAA (abdominal aortic aneurysm) (H) ??? Arthritis neck ??? Atrial tachycardia (H) 04/2017 nonsustained ??? Basal cell carcinoma ??? 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 Chronic pain lumbar back ??? Chronic renal insufficiency ??? Hypertension ??? Opioid overdose 04/2017 ??? JACKSON (obstructive sleep apnea) Past Surgical History: Past Surgical History: Procedure Laterality Date ??? APPENDECTOMY ??? BACK SURGERY lumbar fusion x2 ??? ENT SURGERY tonsils ??? EXCISE TOENAIL(S) 09/30/2012 Procedure: EXCISE TOENAIL(S);; Surgeon: Sal Chaparro DPM; Location: [facility] OR ??? ORTHOPEDIC SURGERY left foot surg ??? ORTHOPEDIC SURGERY cervical fusion x2 ??? REMOVE HARDWARE FOOT 09/30/2012 Procedure: REMOVE HARDWARE FOOT; hardware removel left foot; Surgeon: Sal Chaparro DPM; Location: [facility] OR ??? THORACIC SURGERY left lung surg decortifcation ??? wisdom teeth[ Family History: No family history on file. Family history reviewed and updated in EPIC and not discussed Allergies: Allergies Allergen Reactions ??? Novocain [Procaine Hcl] Bumps in throat ??? Penicillins Rash Medications I have reviewed this patient's medication profile and medications given in the past 24 hours. Hydrocodone/APAP 5/325 1 tab q4h prn - x5 Gabapentin 300mg tid Acetaminophen 650mg q4h prn - x1 Prednisone 10mg daily - started today Albuterol neb prn, Duoneb prn - none Guaifenesin bid Famotidine IV q24h Ondansetron prn - none Milk of magnesia daily prn, Senna-docusate prn - none DIRECTOR LIFE: MS Contine 15mg bid Hydrocodone/APAP 7.5/325 1-1.5 tabs q4h prn Cyclobenzaprine bid prn Gabapentin 300-900 po prn Prednisone taper started 04/30 Physical Exam Vital Signs: Temp: 98.4 ??F (36.9 ??C) Temp src: Bladder BP: 176/79 Heart Rate: 63 Resp: 10 SpO2: 98% O2 Device: Nasal cannula Oxygen Delivery: 2 LPM Weight: 206 lbs 12.66 oz Physical Exam: CONSTIT: awake, appears comfortable EENT: MMM, pupils constriced, EOMI, no icterus RESP: reg, nl effort in supine position CARDIOVASC: RRR, no m/r/g GI: soft, nontender, nl bowel sounds SKIN: warm, no rash, no obvious lesions NEURO: alert, oriented x3 PSYCH: appropriate affect, memory and thought process intact Data Data reviewed: crea 1.24 (baseline) Margaret Laguna Pager: [phone] [facility] Inpatient Team Consult pager [phone] (M-F 8-4:30) After-hours Answering Service [phone] Palliative Clinic: [phone] Total time spent was 45 minutes, >50% of time was spent counseling and/or coordination of care regarding symptom assessment, disease understanding. Rolando Burrell MD - 05/07/2017 11:00 AM CDT [facility] Cardiology Consultation Date of Admission: 05/05/2017 Rolando Burrell MD Primary Care Physician Celina Coley Reason for Consult Reason for consult: I was asked by Dr. Klein to evaluate this patient for tachy-dani arrhythmia. History of Present Illness Speedy Mcduffie is a 76 year old male who presents with mental status change on 05/05/2017. Suspected to have opioid overdose. Alert and oriented now. ECG telemetry showed several runs of tachyarrhythmia and sinus pauses. Reviewed tracings, nonsustained atrial tachycardia and pauses <3 seconds. No history of bradycardia symptoms. Not on bradycardia medications. Suspected but unconfirmed JACKSON. H/O hypertension, chronic renal insufficiency, chronic back pain, AAA. Possible alcohol abuse. Assessment & Plan Speedy Mcduffie is a 76 year old male who was admitted on 05/05/2017. No apparent evidence of atrial fib. Asymptomatic nonsustained atrial tachycardia does not require intervention. Avoid bradycardia medications. Consider pacemaker only if he has bradycardia symptoms. Sign off Past Medical History I have reviewed this patient's medical history and updated it with pertinent information if needed. Past Medical History: Diagnosis Date ??? AAA (abdominal aortic aneurysm) (H) ??? Arthritis neck ??? Atrial tachycardia (H) 04/2017 nonsustained ??? Basal cell carcinoma ??? 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 Chronic pain lumbar back ??? Chronic renal insufficiency ??? Hypertension ??? Opioid overdose 04/2017 ??? JACKSON (obstructive sleep apnea) Past Surgical History I have reviewed this patient's surgical history and updated it with pertinent information if needed. Past Surgical History: Procedure Laterality Date ??? APPENDECTOMY ??? BACK SURGERY lumbar fusion x2 ??? ENT SURGERY tonsils ??? EXCISE TOENAIL(S) 09/30/2012 Procedure: EXCISE TOENAIL(S);; Surgeon: Sal Chaparro DPM; Location: [facility] OR ??? ORTHOPEDIC SURGERY left foot surg ??? ORTHOPEDIC SURGERY cervical fusion x2 ??? REMOVE HARDWARE FOOT 09/30/2012 Procedure: REMOVE HARDWARE FOOT; hardware removel left foot; Surgeon: Sal Chaparro DPM; Location: [facility] OR ??? THORACIC SURGERY left lung surg decortifcation ??? wisdom teeth[ Prior to Admission Medications Prior to Admission Medications Prescriptions Last Dose Informant Patient Reported? Taking? ASPIRIN PO Daughter Yes Yes Sig: Take 81 mg by mouth daily ATORVASTATIN CALCIUM PO Daughter Yes Yes Sig: Take 40 mg by mouth daily CYCLOBENZAPRINE HCL PO Daughter Yes Yes Sig: Take 10 mg by mouth 2 times daily as needed GABAPENTIN PO Daughter Yes Yes Sig: Take 300-900 mg by mouth daily as needed HYDROcodone-acetaminophen (NORCO) 7.5-325 MG per tablet Daughter Yes Yes Sig: Take 1-1.5 tablets by mouth every 4 hours as needed for moderate to severe pain METOPROLOL TARTRATE PO Daughter Yes Yes Sig: Take 50 mg by mouth 2 times daily. Morphine Sulfate (MS CONTIN PO) Daughter Yes Yes Sig: Take 15 mg by mouth 2 times daily PREDNISONE PO Daughter Yes Yes Sig: Filled on 04/30/17. Take 15 mg x3 days; 10 mg x3 days. And 5 mg x3 days. TERAZOSIN HCL PO Daughter Yes Yes Sig: Take 5 mg by mouth At Bedtime Facility-Administered Medications: None Current Facility-Administered Medications Medication Dose Route Frequency ??? metoprolol 25 mg Oral BID ??? guaiFENesin 600 mg Oral BID ??? gabapentin 300 mg Oral TID ??? IV infusion builder WITH LARGE additive list Intravenous Q24H ??? sodium chloride (PF) 3 mL Intracatheter Q8H ??? heparin 5,000 Units Subcutaneous Q12H ??? famotidine 20 mg Intravenous Q24H ??? clindamycin 900 mg Intravenous Q8H ??? levofloxacin 250 mg Intravenous Q24H Current Facility-Administered Medications Medication Last Rate ??? dextrose 5% and 0.45% NaCl 10 mL/hr at 05/07/17 0908 ??? - MEDICATION INSTRUCTIONS - Allergies Allergies Allergen Reactions ??? Novocain [Procaine Hcl] Bumps in throat ??? Penicillins Rash Social History reports that he has quit smoking. He does not have any smokeless tobacco history on file. He reports that he drinks alcohol. He reports that he does not use illicit drugs. Family History No family history on file. Review of Systems The comprehensive 10 point Review of Systems is negative other than noted in the HPI or here. Physical Exam Vital Signs with Ranges Temp: [98.1 ??F (36.7 ??C)-100.4 ??F (38 ??C)] 99.3 ??F (37.4 ??C) Heart Rate: [56-129] 60 Resp: [9-27] 15 BP: (94-185)/(58-101) 149/95 FiO2 (%): [40 %] 40 % SpO2: [94 %-100 %] 100 % Wt Readings from Last 4 Encounters: 05/07/17 97.2 kg (214 lb 4.6 oz) 01/04/13 93 kg (205 lb) 10/05/12 93 kg (205 lb) 09/30/12 93 kg (205 lb) I/O last 3 completed shifts: In: 3766.17 [P.O.:740; I.V.:3026.17] Out: 3475 [Urine:3475] Vitals: BP (!) 149/95 Pulse 82 Temp 99.3 ??F (37.4 ??C) Resp 15 Ht 1.702 m (5' 7) Wt 97.2kg (214 lb 4.6 oz) SpO2 100% BMI 33.56 kg/m2 Constitutional: awake, alert, cooperative, no apparent distress, and appears stated age Eyes: Lids and lashes normal, pupils equal, round and reactive to light, extra ocular muscles intact, sclera clear, conjunctiva normal ENT: Normocephalic, without obvious abnormality, atraumatic, sinuses nontender on palpation, external ears without lesions, oral pharynx with moist mucous membranes, tonsils without erythema or exudates, gums normal and good dentition. Neck: Supple, symmetrical, trachea midline, no adenopathy, thyroid symmetric, not enlarged and no tenderness, skin normal Hematologic / Lymphatic: no cervical lymphadenopathy Back: Symmetric, no curvature, spinous processes are non-tender on palpation, paraspinous muscles are non-tender on palpation, no costal vertebral tenderness Lungs: No increased work of breathing, good air exchange, clear to auscultation bilaterally, no crackles or wheezing Cardiovascular: Normal apical impulse, regular rate and rhythm, normal S1 and S2, no S3 or S4, and no murmur noted Abdomen: No scars, normal bowel sounds, soft, non-distended, non-tender, no masses palpated, no hepatosplenomegally Chest / Breast: Breasts symmetrical, skin without lesion(s), no nipple retraction or dimpling, no nipple discharge,no masses palpated, no axillary or supraclavicular adenopathy and Genitounirinary: Musculoskeletal: There is no redness, warmth, or swelling of the joints. Full range of motion noted. Motor strength is 5 out of 5 all extremities bilaterally. Tone is normal. Neurologic: Awake, alert, oriented to name, place and time. Cranial nerves II-XII are grossly intact. Motor is 5 out of 5 bilaterally. Cerebellar finger to nose, heel to beaulieu intact. Sensory is intact. Babinski down going, Romberg negative, and gait is normal. Neuropsychiatric: General: calm and normal eye contact Skin: no bruising or bleeding No lab results found in last 7 days. Invalid input(s): TROPONINIES Recent Labs Lab 05/07/17 0450 05/06/17 1718 05/06/17 04405/05/17 2235 05/05/17 1527 05/05/17 1520 WBC 11.9* -- 14.4* -- -- 17.7* HGB 12.5* -- 12.5* -- 14.3 14.3 MCV 99 -- 100 -- -- 99 PLT 150 -- 135* -- -- 170 NA 143 -- 143 144 140 141 POTASSIUM 4.8 -- 4.5 5.0 4.5 4.4 CHLORIDE 114* -- 115* 113* -- 107 CO2 20 -- 20 21 -- 23 BUN 25 -- 39* 46* -- 48* CR 1.52* -- 1.79* 1.95* -- 2.41* GFRESTIMATED 45* -- 37* 34* -- 26* GFRESTBLACK 54* -- 45* 41* -- 32* ANIONGAP 9 -- 8 10 -- 11 BALDEMAR 8.8 8.6 7.8* 7.8* -- 8.6 GLC 130* -- 129* 148* -- 126* ALBUMIN 2.6* -- 2.6* -- -- 3.3* PROTTOTAL 6.2* -- 6.0* -- -- 6.9 BILITOTAL 0.5 -- 0.6 -- -- 0.5 ALKPHOS 156* -- 144 -- -- 166* ALT 34 -- 33 -- -- 29 AST 46* -- 57* -- -- 22 No results for input(s): CHOL, HDL, LDL, TRIG, CHOLHDLRATIO in the last 72915 hours. Recent Labs Lab 05/07/17 0450 05/06/1744405/05/17 15205/05/17 1520 WBC 11.9* 14.4* -- 17.7* HGB 12.5* 12.5* 14.3 14.3 HCT 37.5* 38.3* -- 42.9 MCV 99 100 -- 99 PLT 150 135* -- 170 Recent Labs Lab 05/05/17 2020 05/05/17 1727 05/05/17 1533 PH 7.23* 7.22* 7.22* PO2 159* 198* 112* PCO2 45 43 48* HCO3 19* 18* 20* No results for input(s): NTBNPI, NTBNP in the last 168 hours. No results for input(s): DD in the last 168 hours. No results for input(s): SED, CRP in the last 168 hours. Recent Labs Lab 05/07/17 0450 05/06/17 0445 05/05/17 1520 PLT 150 135* 170 No results for input(s): TSH in the last 168 hours. Recent Labs Lab 05/05/17 1720 COLOR Yellow APPEARANCE Clear URINEGLC Negative URINEBILI Negative URINEKETONE Negative SG 1.020 UBLD Negative URINEPH 5.5 PROTEIN 30* UROBILINOGEN 0.2 NITRITE Negative LEUKEST Negative RBCU O - 2 WBCU O - 2 Imaging: Recent Results (from the past 48 hour(s)) Chest XR, 1 view PORTABLE Narrative XR CHEST PORT 1 VW 05/05/2017 3:40 PM HISTORY: Aspiration. COMPARISON: None. Impression IMPRESSION: There is diffuse bilateral interstitial prominence, which could reflect mild edema or venous congestion. In addition, there is patchy opacification of the right upper lobe, possibly focal infection or aspiration. No pleural effusions or pneumothorax appreciated. Heart size is upper limits of normal. KYA INTERIANO MD XR Chest Port 1 View Narrative CHEST ONE VIEW PORTABLE 05/07/2017 5:07 AM HISTORY: Intubated and ventilated. COMPARISON: 05/05/2017. Impression IMPRESSION: Bilateral patchy pulmonary infiltrates, mostly interstitial in appearance. Patchy alveolar infiltrate in the right upper lobe is unchanged. Borderline cardiomegaly is unchanged. Pleural thickening laterally on the left, unchanged. Previous anterior cervical spinal fusion. Despite the history, no endotracheal tube is seen. Echo: No results found for this or any previous visit (from the past 4320 hour(s)). Kamari Jones PA-C - 05/07/2017 9:21 AM CDTAssociated Order(s): CARDIOLOGY IP CONSULT [facility] Cardiology Consultation Date of Admission: 05/05/2017 Date of Consult (When I saw the patient): 05/07/2017 ASSESSMENT: Speedy Mcduffie is a 76 year old male who was admitted on 05/05/2017. I was asked to see the patient for tachycardia-bradycardia noted on telemetry. The patient came in with altered mental status/acute toxic encephalopathy suspected due to unintentional opioid overdose. 1) Atrial Fibrillation RVR (141 bpm) on 05/07 at 0019 - patient was asleep, IV Metoprolol 2.5 mg was given, now on metoprolol 25 mg BID (held this AM due to bradycardia and pauses) - CHADSVASC score is 2 (age, HTN) -TSH in 2007 was normal - 3 beers/day, question withdrawal symptoms (on CIWA protocol) 2) Sinus Pause - This AM few episodes of sinus pauses (2.5 - 3 seconds) 2) Altered Mental Status - [place] to be due to incidental opioid overdose 3) Aspiration pneumonia 4) CKD 5) HTN - Suboptimal, metoprolol is on hold 6) AAA - Abd US in 04/2017 4.2x4.1 cm 7) HLD - (11/2016) TC 171, HDL 52, LDL 90, TG 144 8) JACKSON PLAN: 1) IV lopressor PRN 2) Echocardiogram today 3) EP consult for tomorrow Code Status Full Code Reason for Consult Reason for consult: I was asked to evaluate this patient for sinus bradycardia and atrial fibrillation RVR. Primary Care Physician Celina Coley History of Present Illness Speedy Mcduffie is a 76 year old male who is admitted on 05/05/2017 for evaluation of unresponsiveness. His past medical history is notable for hypertension, hyperlipidemia, AAA, CK D (stage III), possible sleep apnea, and chronic lower back pain since sacral fracture for which he has been on opioid therapy. He had recent admission to [facility] between 711 and 713 for severe back pain. MR I at that time demonstrated none placed insufficiency type sacral fracture. Conservative management was recommended. Unfortunately the morning of 05/05 patient's daughter found patient unresponsive with large amount ofblood like material out of his mouth. 911 was called. Prior to this incident patient's daughter had reported patient having mild cough with green colored sputum for a few days. He had no fevers or shortness of breath per her report. Patient is not a smoker. He does drink 3 beers a day. He denies any previous cardiac procedures. Histroponin on admission was negative. He's been receiving serial abdominal ultrasound for his history of AAA. His thyroid function was last checked in 2007 which was normal. There is no known history of atrial fibrillation.The patient is normally a very active person. He lives with his . Past Medical History Past Medical History: Diagnosis Date ??? Arthritis neck ??? Basal cell carcinoma ??? 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 Chronic pain lumbar back ??? Hypertension Past Surgical History Past Surgical History: Procedure Laterality Date ??? APPENDECTOMY ??? BACK SURGERY lumbar fusion x2 ??? ENT SURGERY tonsils ??? EXCISE TOENAIL(S) 09/30/2012 Procedure: EXCISE TOENAIL(S);; Surgeon: Sal Chaparro DPM; Location: [facility] OR ??? ORTHOPEDIC SURGERY left foot surg ??? ORTHOPEDIC SURGERY cervical fusion x2 ??? REMOVE HARDWARE FOOT 09/30/2012 Procedure: REMOVE HARDWARE FOOT; hardware removel left foot; Surgeon: Sal Chaparro DPM; Location: [facility] OR ??? THORACIC SURGERY left lung surg decortifcation ??? wisdom teeth[ Prior to Admission Medications Prior to Admission Medications Prescriptions Last Dose Informant Patient Reported? Taking? ASPIRIN PO Daughter Yes Yes Sig: Take 81 mg by mouth daily ATORVASTATIN CALCIUM PO Daughter Yes Yes Sig: Take 40 mg by mouth daily CYCLOBENZAPRINE HCL PO Daughter Yes Yes Sig: Take 10 mg by mouth 2 times daily as needed GABAPENTIN PO Daughter Yes Yes Sig: Take 300-900 mg by mouth daily as needed HYDROcodone-acetaminophen (NORCO) 7.5-325 MG per tablet Daughter Yes Yes Sig: Take 1-1.5 tablets by mouth every 4 hours as needed for moderate to severe pain METOPROLOL TARTRATE PO Daughter Yes Yes Sig: Take 50 mg by mouth 2 times daily. Morphine Sulfate (MS CONTIN PO) Daughter Yes Yes Sig: Take 15 mg by mouth 2 times daily PREDNISONE PO Daughter Yes Yes Sig: Filled on 04/30/17. Take 15 mg x3 days; 10 mg x3 days. And 5 mg x3 days. TERAZOSIN HCL PO Daughter Yes Yes Sig: Take 5 mg by mouth At Bedtime Facility-Administered Medications: None Allergies Allergies Allergen Reactions ??? Novocain [Procaine Hcl] Bumps in throat ??? Penicillins Rash Social History reports that he has quit smoking. He does not have any smokeless tobacco history on file. He reports that he drinks alcohol. He reports that he does not use illicit drugs. Family History I have reviewed this patient's family history and updated it with pertinent information if needed. Review of Systems The 10 point Review of Systems is negative other than noted in the HPI or here. Physical Exam Temp: 99.3 ??F (37.4 ??C) Temp src: Bladder BP: (!) 149/95 Heart Rate: 60 Resp: 15 SpO2: 100 % O2 Device: Nasal cannula with humidification Oxygen Delivery: 3 LPM Constitutional: fatigued and slightly confused. Sometimes could not finish his answers. Respiratory: Coarse breath sounds, slightly diminished on the left side Cardiovascular: Regular rate and rhythm but tachycardic GI: soft, non-tender Skin: warm and dry Neurologic: orientated to place but not time or person. Data Reviewed. Tele: Sinus Bradycardia Kamari Jones PA-C 05/07/2017 Pager: [phone] Associated attestation - Hue Klein MD - 05/07/2017 2:31 PM CDT Physician Attestation I, Hue Klein, saw and evaluated Speedy Mcduffie as part of a shared visit. I have reviewed and discussed with the advanced practice provider their history, physical and plan. I personally reviewed the vital signs, medications, labs and imaging. My gandara history or physical exam findings: as per RAVIN note Gandara management decisions made by me: EP has seen patient as well. Will focus on BP control with hydralazine and Nitrates (renal failure). Will follow along. Hue Klein Date of Service (when I saw the patient): 05/07/17 Aubrey Irvin MD - 05/05/2017 6:24 PM CDT [facility] History and Physical/ Consult Critical Care Service Date of Admission: 05/05/2017 Date of Service: 05/05/17 Assessment & Plan Speedy Mcduffie is a 76 year old male who presents with altered mental status. 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 At present will react to noxious stimuli. - Altered mental status: Suspect secondary to MS Contin -- in renal failure, could have difficulty clearing active metabolites. Supportive cares for now, avoid narcotics/benzodiazepines. Is on naloxonegtt. As he is nonfocal will not perform CT head at this point; if he fails to show improvement may need this. Pulm: On BiPAP at presentation 04/03/60, drawing large tidal volumes (>1L). Question of aspirationevent. - Pulmonary insufficiency: Hypercapnea improving, latest ABG 7.22/43/198/99. He awakens and is coughing well; would continue to follow for now. - Low threshold for intubation if needed for airway protection. - Turned down inspiratory pressure to 13 as Vt was ~1800 on ; he still is drawing 800+. Recheck ABG. - ?Aspiration: Mild infiltrate of RUL on chest film. Started on levofloxacin, clindamycin in emergency department. CV: 80s, 100s-140s/70s-80s. - HTN: Holding scheduled metoprolol for now, continue with prn antihypertensives. Resume scheduled as indicated. FEN/GI: Abdomen soft. - NPO for now. : DEJA with Cr 2.4 today. - DEJA: ?CKD background, as creatinine from [facility] Everywhere ranges from 1.1 to 1.4 recently. Got 2L NS in emergency department, continue hydration and following UOP. - Follow lytes. Heme: Hb 14.3, plt 170. Musculoskeletal: Extremities warm, well-perfused. - History of sacral fracture: Nonoperative management at outside hospital last week. On prednisone taper, can likely stop this and see how he does. Endocrine: Glucose 116. - Routine glycemic monitoring, SSI if needed. ID: Afebrile, WBCs 17. - ?Aspiration pneumonia: On appropriate antibiotic. ICU: SQH, H2. General cares: DVT Prophylaxis: Heparin SQ GI Prophylaxis: H2 Gauri Restraints: Restraints for medical healing needed: NO Family update by me today: Yes Current lines are required for patient management Access: Aubrey Irvin MD, PhD Surgical critical care May 05, 2017, 6:13 PM Time Spent on this Encounter Billing: I spent 60 minutes bedside and on the inpatient unit today managing the critical care of Speedy Mcduffie in relation to the issues listed in this note. Code Status Full Code Primary Care Physician Celina Coley Chief Complaint Consultation requested by Dr Mccullough for evaluation of this patient with respiratory insufficiency and altered mental status. History is obtained from the chart because of patient mental status. History of Present Illness Speedy Mcduffie is a 76 year old man who presents after being found unresponsive at home today. There was a possible aspiration event associated with this. He was airlifted to the emergency department at [facility]. Naloxone administered during transport improved his mental status transiently. The patient has a recent sacral fracture which has caused some [id number] pain. Past Medical History I have reviewed this patient's medical history and updated it with pertinent information if needed. Past Medical History: Diagnosis Date ??? Arthritis neck ??? Basal cell carcinoma ??? 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 Chronic pain lumbar back ??? Hypertension Past Surgical History I have reviewed this patient's surgical history and updated it with pertinent information if needed. Past Surgical History: Procedure Laterality Date ??? APPENDECTOMY ??? BACK SURGERY lumbar fusion x2 ??? ENT SURGERY tonsils ??? EXCISE TOENAIL(S) 09/30/2012 Procedure: EXCISE TOENAIL(S);; Surgeon: Sal Chaparro DPM; Location: [facility] OR ??? ORTHOPEDIC SURGERY left foot surg ??? ORTHOPEDIC SURGERY cervical fusion x2 ??? REMOVE HARDWARE FOOT 09/30/2012 Procedure: REMOVE HARDWARE FOOT; hardware removel left foot; Surgeon: Sal Chaparro DPM; Location: [facility] OR ??? THORACIC SURGERY left lung surg decortifcation ??? wisdom teeth[ Prior to Admission Medications Prior to Admission Medications Prescriptions Last Dose Informant Patient Reported? Taking? ASPIRIN PO Daughter Yes Yes Sig: Take 81 mg by mouth daily ATORVASTATIN CALCIUM PO Daughter Yes Yes Sig: Take 40 mg by mouth daily CYCLOBENZAPRINE HCL PO Daughter Yes Yes Sig: Take 10 mg by mouth 2 times daily as needed GABAPENTIN PO Daughter Yes Yes Sig: Take 300-900 mg by mouth daily as needed HYDROcodone-acetaminophen (NORCO) 7.5-325 MG per tablet Daughter Yes Yes Sig: Take 1-1.5 tablets by mouth every 4 hours as needed for moderate to severe pain METOPROLOL TARTRATE PO Daughter Yes Yes Sig: Take 50 mg by mouth 2 times daily. Morphine Sulfate (MS CONTIN PO) Daughter Yes Yes Sig: Take 15 mg by mouth 2 times daily PREDNISONE PO Daughter Yes Yes Sig: Filled on 04/30/17. Take 15 mg x3 days; 10 mg x3 days. And 5 mg x3 days. TERAZOSIN HCL PO Daughter Yes Yes Sig: Take 5 mg by mouth At Bedtime Facility-Administered Medications: None Allergies Allergies Allergen Reactions ??? Novocain [Procaine Hcl] Bumps in throat ??? Penicillins Rash Social History I have reviewed this patient's social history and updated it with pertinent information if needed. Devonjenniffer Fatuma Mcduffie reports that he has quit smoking. He does not have any smokeless tobacco history on file. He reports that he drinks alcohol. He reports that he does not use illicit drugs. Family History I have reviewed this patient's family history and updated it with pertinent information if needed. No family history on file. Review of Systems Review of systems not obtained due to patient factors - mental status Physical Exam Temp: 98.2 ??F (36.8 ??C) Temp src: Temporal Temp Min: 98.2 ??F (36.8 ??C) Max: 98.2 ??F (36.8 ??C) BP: 141/81 Pulse: 82 Heart Rate: 87 Resp: 18 SpO2: 100 % O2 Device: BiPAP/CPAP Vital Signs with Ranges Temp: [98.2 ??F (36.8 ??C)] 98.2 ??F (36.8 ??C) Pulse: [82-89] 82 Heart Rate: [71-91] 87 Resp: [12-27] 18 BP: (81-141)/(64-89) 141/81 SpO2: [98 %-100 %] 100 % 220 lbs 0 oz GEN: Somnolent but awakens to voice and sternal rub; verbally answered one question. EYES: Pupils narrow but not pinpoint; no icterus. HEENT: NC/AT. CV: RRR, S1/S2 PULM/CHEST: Coarse breath sounds bilaterally; good air movement. GI: Abdomen soft, NT/ND. No tympany. : Dial in place with clear urine. EXTREMITIES: Warm, well-perfused. NEURO: Attempts to open eyes to voice, intermittently follows commands; has been nonfocal. SKIN: Warm PSYCH: Unable to assess. Imaging personally reviewed: CXR Data Results for orders placed or performed during the hospital encounter of 05/05/17 (from the past 24 hour(s)) CBC with platelets differential Result Value Ref Range WBC 17.7 (H) 4.0 - 11.0 10e9/L RBC Count 4.32 (L) 4.4 - 5.9 10e12/L Hemoglobin 14.3 13.3 - 17.7 g/dL Hematocrit 42.9 40.0 - 53.0 % MCV 99 78 - 100 fl MCH 33.1 (H) 26.5 - 33.0 pg MCHC 33.3 31.5 - 36.5 g/dL RDW 13.0 10.0 - 15.0 % Platelet Count 170 150 - 450 10e9/L Diff Method Automated Method % Neutrophils 83.6 % % Lymphocytes 9.3 % % Monocytes 6.0 % % Eosinophils 0.7 % % Basophils 0.1 % % Immature Granulocytes 0.3 % Nucleated RBCs 0 0 /100 Absolute Neutrophil 14.8 (H) 1.6 - 8.3 10e9/L Absolute Lymphocytes 1.7 0.8 - 5.3 10e9/L Absolute Monocytes 1.1 0.0 - 1.3 10e9/L Absolute Eosinophils 0.1 0.0 - 0.7 10e9/L Absolute Basophils 0.0 0.0 - 0.2 10e9/L Abs Immature Granulocytes 0.1 0 - 0.4 10e9/L Absolute Nucleated RBC 0.0 Comprehensive metabolic panel Result Value Ref Range Sodium 141 133 - 144 mmol/L Potassium 4.4 3.4 - 5.3 mmol/L Chloride 107 94 - 109 mmol/L Carbon Dioxide 23 20 - 32 mmol/L Anion Gap 11 3 - 14 mmol/L Glucose 126 (H) 70 - 99 mg/dL Urea Nitrogen 48 (H) 7 - 30 mg/dL Creatinine 2.41 (H) 0.66 - 1.25 mg/dL GFR Estimate 26 (L) >60 mL/min/1.7m2 GFR Estimate If Black 32 (L) >60 mL/min/1.7m2 Calcium 8.6 8.5 - 10.1 mg/dL Bilirubin Total 0.5 0.2 - 1.3 mg/dL Albumin 3.3 (L) 3.4 - 5.0 g/dL Protein Total 6.9 6.8 - 8.8 g/dL Alkaline Phosphatase 166 (H) 40 - 150 U/L ALT 29 0 - 70 U/L AST 22 0 - 45 U/L Acetaminophen level Result Value Ref Range Acetaminophen Level <2 Therapeutic range: 10-20 mg/L mg/L Salicylate level Result Value Ref Range Salicylate Level mg/dL <2 Therapeutic: <20 Anti inflammatory: 15-30 Alcohol ethyl Result Value Ref Range Ethanol g/dL <0.01 <0.01 g/dL Glucose by meter Result Value Ref Range Glucose 116 (H) 70 - 99 mg/dL EKG 12 lead Result Value Ref Range Interpretation ECG Click View Image link to view waveform and result ISTAT electrolytes POCT Result Value Ref Range Sodium 140 133 - 144 mmol/L Potassium 4.5 3.4 - 5.3 mmol/L Hemoglobin 14.3 13.3 - 17.7 g/dL Hematocrit - POCT 42 40.0 - 53.0 %PCV Troponin POCT Result Value Ref Range Troponin I 0.02 0.00 - 0.10 ug/L Blood gas arterial and oxyhgb Result Value Ref Range pH Arterial 7.22 (L) 7.35 - 7.45 pH pCO2 Arterial 48 (H) 35 - 45 mm Hg pO2 Arterial 112 (H) 80 - 105 mm Hg Bicarbonate Arterial 20 (L) 21 - 28 mmol/L Oxyhemoglobin Arterial 97 92 - 100 % Base Deficit Art 7.5 mmol/L Chest XR, 1 view PORTABLE Narrative XR CHEST PORT 1 VW 05/05/2017 3:40 PM HISTORY: Aspiration. COMPARISON: None. Impression IMPRESSION: There is diffuse bilateral interstitial prominence, which could reflect mild edema or venous congestion. In addition, there is patchy opacification of the right upper lobe, possibly focal infection or aspiration. No pleural effusions or pneumothorax appreciated. Heart size is upper limits of normal. KYA INTERIANO MD Lactic acid whole blood Result Value Ref Range Lactic Acid 1.5 0.7 - 2.1 mmol/L UA reflex to Microscopic and Culture Result Value Ref Range Color Urine Yellow Appearance Urine Clear Glucose Urine Negative NEG mg/dL Bilirubin Urine Negative NEG Ketones Urine Negative NEG mg/dL Specific [place] Urine 1.020 1.003 - 1.035 Blood Urine Negative NEG pH Urine 5.5 5.0 - 7.0 pH Protein Albumin Urine 30 (A) NEG mg/dL Urobilinogen Urine 0.2 0.2 - 1.0 EU/dL Nitrite Urine Negative NEG Leukocyte Esterase Urine Negative NEG Source Catheterized Urine Urine Microscopic Result Value Ref Range WBC Urine O - 2 0 - 2 /HPF RBC Urine O - 2 0 - 2 /HPF Cast Urine 2-5 HYALINE 0 - 2 /LPF Bacteria Urine Few (A) NEG /HPF Mucous Urine Present (A) NEG /LPF ISTAT gases arterial POCT Result Value Ref Range pH Arterial 7.22 (L) 7.35 - 7.45 pH pCO2 Arterial 43 35 - 45 mm Hg pO2 Arterial 198 (H) 80 - 105 mm Hg Bicarbonate Arterial 18 (L) 21 - 28 mmol/L O2 Sat Arterial 99 92 - 100 % Glucose by meter Result Value Ref Range Glucose 92 70 - 99 mg/dL documented in this encounter ED Notes Warner Montes RN - 05/05/2017 5:22 PM CDT Difficulty arrousing patient despite sternal rub. Given extra dose of Narcan, fluid bolus and woken up to urinate- BP improved. Ophelia Monson RN - 05/05/2017 4:45 PM CDT at bedside- hospitalist. Ophelia Monson RN - 05/05/2017 4:11 PM CDT MD at bedside- Debroux, to discuss results with family. Aubrey Bautista RN - 05/05/2017 3:23 PM CDT Bed: ST01 Expected date: Expected time: Means of arrival: Comments: Bandar - 76 M unresponsive eta 1515 Leesa Martinez MD - 05/05/2017 3:21 PM CDT History Chief Complaint: Drug Overdose History limited due to patient being unresponsive and subsequently provided by EMS report and his daughter. HPI Speedy Mcduffie is a 76 year old male with a history of alcoholism who presents to the emergency department today for evaluation of a drug overdose. The patient was last seen yesterday evening around 2300 and was found unconscious by this afternoon his daughter who called EMS. The patient was brought by ambulance to a [facility] helicopter and then to the emergency department for evaluation because his other daughter is nurse in the ICU at [facility]. He was not brought to [place] for evaluation because he was initially unresponsive. The first daughter states that he aspirated at home and was foaming at the mouth. Per EMS, he was given 2 Narcan due to his history of narcotic abuse and wasthen responsive. The patient knew his name and where he was en route and his stats were in the high 90s with occasional dips. A nasal airway tube was put in for protection and he did not fight it. In the emergency department, his daughter states that he is on pain medications for a back injury due to a fall that he has been mixing with alcohol. The patient denies any tobacco use or pain. 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 Of note, the patient presented to the emergency department with 14 left of his Hydrocodone 7.5-325mg filled 7/10 of which there were 30 and 17 left of his morphine 15mg extended release filled 7/10 of which there were 28. Allergies: Novocain [Procaine Hcl] Penicillins Medications: sulfamethoxazole-trimethoprim (BACTRIM DS,SEPTRA DS) 800-160 MG per tablet fluocinolone (SYNALAR) 0.01 % external solution METOPROLOL TARTRATE PO MISOPROSTOL PO SIMVASTATIN PO terazosin (HYTRIN) 2 MG capsule TOLTERODINE TARTRATE PO Past Medical History: Arthritis Basal cell carcinoma Chronic infection Chronic pain Hypertension Past Surgical History: Appendectomy Back Surgery Tonsillectomy Left foot surgery Cervical fusion Remove hardware foot Left lung surgical decortication Hall teeth Family History: History reviewed. No pertinent family history. Social History: The patient was accompanied to the ED by his daughter. Smoking Status: Former Smoker Alcohol Use: Yes Marital Status: Review of Systems Unable to perform ROS: Patient unresponsive Physical Exam First Vitals: BP 125/82 Pulse 89 Temp 98.2 ??F (36.8 ??C) (Temporal) Resp 18 Wt 99.8 kg (220 lb) SpO2 98% BMI 34.46 kg/m2 Physical Exam General: Resting on the gurney, minimally responsive, improves with Narcan Head: The scalp, face, and head appear normal Mouth/Throat: Mucus membranes are moist CV: Regular rate Normal S1 and S2 No pathological murmur Resp: Breath sounds clear and equal bilaterally Lungs are coarse throughout with occasional wheezing GI: Abdomen is soft, no rigidity No tenderness to palpation Abdomen soft non tender, non distended MS: Normal motor assessment of all extremities. Good capillary refill noted. Uses all extremities equally Skin: No rash or lesions noted. Neuro: Speech is normal and fluent. No apparent deficit. Psych: Awake. Alert. Normal affect. Appropriate interactions. Emergency Department Course ECG: Indication: Drug Overdose Completed at 1524. Read at 1526. Sinus rhythm Nonspecific ST and T wave abnormality Abnormal ECG Rate 79 bpm. IA interval 138. QRS duration 76. QT/QTc 376/431. P-R-T axes 31 23 14. Imaging: Radiology findings were communicated with the family who voiced understanding of the findings. Chest XR, 1 view Portable IMPRESSION: There is diffuse bilateral interstitial prominence, which could reflect mild edema or venous congestion. In addition, there is patchy opacification of the right upper lobe, possibly focal infection or aspiration. No pleural effusions or pneumothorax appreciated. Heart size is upper limits of normal. Report per radiology Laboratory: Laboratory findings were communicated with the family who voiced understanding of the findings. CBC: WBC 17.7 (H) o/w WNL. (HGB 14.3, PLT 170) Glucose by meter: 116 (H) CMP: Glucose 126 (H), BUN 48 (H), Creatinine 2.41 (H), GFR 26 (L), Albumin 3.3 (L), Alkphos 166 (H) o/w WNL Acetaminophen level: <2 Salicylate level: <2 Alcohol ethyl: <0.01 Blood gas arterial and oxyhgb: pH 7.22 (L), pCO2 Arterial 48 (H), pO2 Arterial 112 (H), Bicarbonate Arterial 20 (L) o/w WNL UA with Microscopic: protein albumin 30, few bacteria, mucous present o/w WNL Blood culture: Pending Blood culture: Pending Troponin POCT (collected 1528): 0.02 ISTAT electrolytes POCT: NA 140, Potassium 4.5, HGB 14.3, HCT 42 Lactic acid whole blood: 1.5 Interventions: 1532: NS 1,000mL IV 1532: Narcan 0.4mg IV 1542: Duoneb 3ml Nebulization Given 1557: NS 1,000mL IV 1643: Narcan 0.4mg IV 1649: Levaquin 750mg IV 1703: Narcan 0.4mg IV 1708: Narcan 1mg IV 1708: NS 1,000mL IV 1708: Narcan 1mg IV Emergency Department Course: Nursing notes and vitals reviewed. I performed an exam of the patient as documented above. EKG obtained in the ED, see results above. The patient was sent for a Chest XR, 1 view Portable while in the emergency department, results above. IV was inserted and blood was drawn for laboratory testing, results above. The patient provided a urine sample here in the emergency department. This was sent for laboratory testing, findings above. 1519: The patient arrived in the emergency department via EMS helicopter. 1521: The patient's daughter arrived in the emergency department and was updated. 1531: The patient's temporal temperature was found to be 98.1. 1532: 0.4mg Narcan was given via IV. 1534: A portable chest x-ray was performed in the room. 1610: Patient rechecked and updated. 1618: I spoke with Dr. Mccullough of the hospitalist service regarding patient's presentation, findings,and plan of care. 1636: Patient rechecked and updated. The patient is hypotensive with a blood pressure of 81/64. I discussed the treatment plan with the patient's family. They expressed understanding of this plan and consented to admission. I discussed the patient with Dr. Mccullough, who will admit the patient to a monitored bed for further evaluation and treatment. I personally reviewed the laboratory and imaging results with the daughter and answered all related questions prior to admit. Impression & Plan Medical Decision Making: Speedy Mcduffie is a 76 year old male who presents to the Emergency Department for evaluation after an ingestion of opiods. I did a broad workup here to make sure I was not missing a co-ingestion of acetaminophen, salicylates, or known dangerous prescribed medications. Salicylates negative, acetaminophen negative. EKG obtained and shows normal QRS, normal QT. Neurologically, the patient has decreased responsiveness, but responds to Narcan. He additionally has increased work of breathing, evidence of aspitation based on history and exam and required BiPAP for additional respiratory support. Abx for aspiration pna given. He will be admitted to ICU given respiratory symptoms, somnolence requiring Narcan drip, and likely aspiration pneumonia. Critical Care time was 30 minutes for this patient excluding procedures. Diagnosis: ICD-10-CM 1. Aspiration pneumonia, unspecified aspiration pneumonia type, unspecified laterality, unspecified part of lung (H) J69.0 2. Opioid overdose, accidental or unintentional, initial encounter T40.2X1A Disposition: Admitted to the ICU under the supervision of Dr. Mccullough Scribe Disclosure: I, Serena Toy, am serving as a scribe at 3:23 PM on 05/05/2017 to document services personally performed by Leesa Martinez MD, based on my observations and the provider's statements to me. 05/05/2017 EMERGENCY DEPARTMENT Leesa Martinez MD 05/05/17 [id number] documented in this encounter Miscellaneous Notes Provider Notification - Aubrey Morales, RN - 05/12/2017 3:42 PM CDT Paged and spoke to Dr. Pleitez notified pharmacist from [place] pharmacy called with concern with counter indications with the d/c med sent. Drawing Machine Operator given phone number to Dr. Pleitez, she will contact pharmacy to verify. Phone number [phone] Plan of Care - Nai Santacruz PT - 05/12/2017 3:42 PM CDT Problem: Goal Outcome Summary Goal: Goal Outcome Summary Physical Therapy Discharge Summary Reason for therapy discharge: Discharged to home with home therapy. Progress towards therapy goal(s). See goals on Care Plan in [facility] electronic health record for goal details. Goals met Therapy recommendation(s): Continued therapy is recommended. Rationale/Recommendations: Home PT to progress mobility. Pt declined TCU. Will need and will have 24 hour assist at home. Plan of Care - Geoff Rudolph OT - 05/12/2017 3:42 PM CDT Problem: Goal Outcome Summary Goal: Goal Outcome Summary Occupational Therapy Discharge Summary Reason for therapy discharge: Discharged to home with home therapy. Progress towards therapy goal(s). See goals on Care Plan in [facility] electronic health record for goal details. Goals not met. Barriers to achieving goals: discharge from facility. Therapy recommendation(s): Continued therapy is recommended. Rationale/Recommendations: Pt would benefit from TCU at discharge;however, pt declined TCU and returned home. Upon discharge home, recommend increased A from family for ADL/IADLs and home OT to ensure safety and I with ADL particiaption.. Plan of Care - Aubrey Morales RN - 05/12/2017 1:37 PM CDT Problem: Goal Outcome Summary Goal: Goal Outcome Summary Outcome: Improving Pt A&O x4, forgetful. VSS, no episode of dani-tachy HR, on RA. Tele SD. CMS intact denies numbness/tingling except LLE weaker than RLE, +2 edema BLE, feet. Neuros intact. C/o Lower back, left hip and leg pain, managed with Tylenol, 5mg Oxycodone, Lidoderm in place, repositioning, warm and cold applicataion. Up A1 w/ GB and walker. Reg diet, fair appetite. +BS, passing flatus, not BM today. Foleypatent, adequate output. Discharging to home with home PT/OT/RN today, family providing transporation. Discharge follow up care and med teaching given to daughter and patient prior to d/c. Plan of Care - Nanette Lo OTA - 05/12/2017 9:52 AM CDT Problem: Goal Outcome Summary Goal: Goal Outcome Summary OT: pt just got back into bed after not being able to tolerate sitting up in chair. Declined OT at this time Plan of Care - Bishop Perez - 05/12/2017 9:34 AM CDT Problem: Goal Outcome Summary Goal: Goal Outcome Summary Mineral Industry Teacher PT Patient plan for discharge: Home with assist and OP PT Current status: Pt transfers supine <> sit with min a x 1 secondary to pain and core weakness.Transfers sit <> stand with FWW and min a x 1. Ambulates for distance of 100' with FWW and jackie x 1. Negotiates 3 stairs with use of bilateral rails and min a x 1. Pt reports pain increase and fatigue during all mobility. Barriers to return to prior living situation: Pain with mobility, level of assist needed for mobility, falls risk. Recommendations for discharge: TCU Rationale for recommendations: Pt is at high risk for falls. Would benefit from cont therapy in TCU setting to progress indep with bed mob and transfers, to increase tolerance for functional mobility, and to decrease falls risk. However, pt is resistant to TCU. If pt refuses TCU, recommend assist for all mobility within the home and OP PT. Entered by: Bishop Perez 05/12/2017 9:30 AM Plan of Care - Fela Aguillon RN - 05/12/2017 5:09 AM CDT Problem: Goal Outcome Summary Goal: Goal Outcome Summary Outcome: No Change A&Ox4. VS running dani (drops into 30's) and tachy, tele SR. Neuros intact, CMS with stronger on Right side. LLE, back pain managed with PRN oxycodone overnight and aqua K pad. Dial cath patent with adequate output. Regular diet. Assist of 2 with GB and walker. Plan of Care - Joaquina Acosta, JOSE - 05/11/2017 11:28 PM CDT Problem: Goal Outcome Summary Goal: Goal Outcome Summary Outcome: Improving Pt a/ox4 with VS, runs dani/tachy occasionally. CMS with 4/5 strength in LLE d/t pain. Neuros intact. Tele SR. LLE/back pain managed with tylenol, PRN oxycodone, lidocaine patches and/or aqua K pad. Pt unable to void and scanned for 396, indwelling cath placed per MD note. Tolerating regular diet, POremains poor-fair. Up with 2, GB and walker. Plan for d/c pending progress. Plan of Care - Aubrey Morales RN - 05/11/2017 1:59 PM CDT Problem: Goal Outcome Summary Goal: Goal Outcome Summary Outcome: No Change Pt A&O x4, forgetful. VSS, on RA. Tele SD. CMS intact denies numbness/tingling. Neuros unchanged, intact. C/o back, left hip and leg pain, managed with PRN Oxycodone, 5mg, scheduled Tylenol, repositioning, pain increase with activity. CIWA was 0 in AM, then d/raj by hospitalist. Up A2 w/ GB and walker, ambulated in hallway, unable to tolerate sitting in chair, tolerated 10 minutes today after PT.Reg diet, poor appetite. +BS, passing flatus, soft BM this shift. Unable to void, bladder scanned 379cc, straight cath 530cc at 1430. D/c pending, currently recommending TCU vs. home. Nrsg will continue to monitor. Plan of Nikos - Bishop Perez - 05/11/2017 12:07 PM CDT Problem: Goal Outcome Summary Goal: Goal Outcome Summary Mineral Industry Teacher PT Patient plan for discharge: None stated Current status: Pt transfers supine <> sit mod a x 1. Transfers sit <> stand with mod a x 1 and FWW. Ambulates for distance of 80' with min a x 1 and use of FWW. Pt reports significant increase in pain during mobility and ambulation. Barriers to return to prior living situation: Pain with mobility, decreased I with bed mob and transfers, decreased activity tolerance, falls risk. Recommendations for discharge: TCU vs home with HH PT. Rationale for recommendations: At this time, safest rec would be TCU. however pt and family preference is home. Pending continued progress during hospital stay, pt may be safe to return home with assist from family and HH PT. PT will continue to follow. 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 Current status: Minimal to mild oral and pharyngeal dysphagia. Barrier to safe swallow is the inability to sit up right in the bed or up in a chair without pain. He was able to take small sips of thin liquids via the straw without overt Sx of aspiration. Mastication was sufficient for eggs and toast. Minimal oral residue that he was able to clear with an additional swallow or liquid rinse completed independently. Patient met swallow goals and able to tolerate a regular diet with thin liquids. Recommend: 1. Regular diet and thin liquids. 2. No further skilled intervention is indicated at this time. May benefit from a cognitive linguistic evaluation at the next level of care. Barriers to return to prior living situation: Pain Recommendations for discharge: Defer to PT/OT Rationale for recommendations: Defer to PT/OT. Entered by: Marie Zuñiga 05/11/2017 10:06 AM Plan of Care - Nanette Lo OTA - 05/11/2017 9:56 AM CDT Problem: Goal Outcome Summary Goal: Goal Outcome Summary OT: attempted x 2 to see pt for OT session, pt busy with WARP TIER and eating breakfast on 1st attempt, 2nd attempt pt agreeable but busy with 2 MD visit prior to initiating OOB activity, unable to remain for session at this time due to limited time left for session. Plan of Care - Jumana Rodriguez RN - 05/11/2017 6:15 AM CDT Problem: Goal Outcome Summary Goal: Goal Outcome Summary Outcome: Improving A&O x4, forgetful. Generalized weakness, other neuros intact. VSS. Tele NSR. CIWA score 0. Regular diet. Up with 2 GB and walker. Prn oxycodone given for back pain. Pt unable to void, bladder scanned 539cc. Straight cathed 550cc at 0545. DC plan pending, will continue to monitor. Plan of Care - Rosette Reese, JOSE - 05/10/2017 11:09 PM CDT Problem: Goal Outcome Summary Goal: Goal Outcome Summary Outcome: No Change A&0x4, VSS, CMS and neuros intact. Continues to have pain throughout the left hip/saccrum/buttock area, pt verbalizes frustration with this ongoing pain and would like to be able to start ambulating more. Tolerating regular diet. Catheter removed early this a.m, has not been able to void today, straight cathed x2 this evening. Tele SR this evening. Up with Ax2, GB/W. D/C plan pending. Plan of Care - Aubrey Morales, RN - 05/10/2017 2:47 PM CDT Problem: Goal Outcome Summary Goal: Goal Outcome Summary Outcome: No Change Pt A&O x4, forgetful. Dani to tachy HR, otherwise VSS, on RA. Tele SD. CMS intact denies numbness/tingling. Neuros intact. C/o back and left hip and leg pain, managed with Tylenol, 5mg Oxycodone, repositioning, warm and cold applicataion. CIWA 0,0. Up A2 w/ GB and walker to BSC. Reg diet, poor appetite. +BS, passing flatus, BM today. DTV, bladder scanned 309cc and then 379cc at 1210 and 476cc [id number]. D/c pending, currently recommending TCU. Nrsg will continue to monitor. 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 Current status: Mild oral and pharyngeal dysphagia at bedside. Mildly prolonged mastication of a grapes with 2 swallows to clear. No overt Sx of aspiration. Tolerated sips of water via the cup and straw without overt Sx of aspiration. Patient increases risk due to his limited ability to tolerate beingupright secondary to pain. Limited amount consumed so will f/u for one more session to insure diet tolerance and strategies. Recommend: 1. Continue on regular textures and thin liquids with swallow precautions/strategies including: sit up at 90 degrees/as high as tolerated, no straw, small bites/sips,alternate textures, slow rate. Hold po if respiratory status declines/aspiration signs are observed. Plan to continue WARP TIER swallow Tx For one mores session to insure diet tolerance and train strategies. Barriers to return to prior living situation: Cognition and deconditioning. Recommendations for discharge: TCU Rationale for recommendations: Patient will likely meet IP goals for swallowing. Entered by: Marie Zuñiga 05/10/2017 1:44 PM Plan of Care - Marie Ortega PT - 05/10/2017 12:13 PM CDT Problem: Goal Outcome Summary Goal: Goal Outcome Summary Mineral Industry Teacher PT Patient plan for discharge: Pt hopes to discharge home with assist from his daughters Current status: Pt currently requires CGA to min A of 2 for bed mobility and supine to/from sit transfers. Pt transfers sit to/from stand with CGA from slightly elevated surfaces and ambulates 20ft with fww and CGA. Pt reporting increased pain 10/10 following gait and static standing. Barriers to return to prior living situation: stairs, current need for 1-2 assist for mobility. Recommendations for discharge: TCU, however pt and family preference is home. Many of pts family members are trained nurses and Pending continued functional progress they may be able to manage care at home. Recommend home PT if pt/family choose discharge to home. Rationale for recommendations: Pt will benefit from continued skilled PT intervention following hospital discharge to continue to improve his functional independence. Entered by: Marie Ortega 05/10/2017 12:07 PM Plan of Care - Nanette Lo OTA - 05/10/2017 9:09 AM CDT Problem: Goal Outcome Summary Goal: Goal Outcome Summary Mineral Industry Teacher OT Patient plan for discharge: home with assist from daughters Current status: Pt rated pain as 5/10 at rest, completed supine to sit EOB with log roll, bed rail, HOB elevated and Jackie. Jackie of 2 sit to stand, pt amb with FWW JACKIE to/from bathroom, unable to tolerate standing at sink for ADL task, rated pain as 10/10 with standing. Max A for BLE to complete sit to supine. Barriers to return to prior living situation: level of assist for ADLS, pain, stairs Recommendations for discharge: TCU; family appears to prefer home, and many family members are trained nurses- pending progress they may be able to manage care with Home therapies per plan established by the Occupational Therapist Rationale for recommendations: Pt would benefit from skilled OT services to increase IND in ADLs andfunctional mobility Entered by: Nanette Lo 05/10/2017 9:06 AM Plan of Care - Ramiro Lozano RN - 05/10/2017 5:03 AM CDT Problem: Goal Outcome Summary Goal: Goal Outcome Summary Outcome: Improving Altered mental status. PT, OT, WARP TIER. A/Ox4, forgetful, acute confusion episodes upon waking from sleep. CMS intact. LS clear. BSx4, loose stool this shift, dail patent, will remove this am, now DTV. Pain controlled with oxycodone 5mg Q4hr as well as cold/heat therapy to bilateral hips/saccrum. Up with2 assist to commode. Tolerating regular diet. VSS except hypertensive, controlled with scheduled meds, Tele is ST. Discharge pending. Plan of Care - Che Wakefield PT - 05/09/2017 4:35 PM CDT Problem: Goal Outcome Summary Goal: Goal Outcome Summary PT: Pt politely declining PT at this time d/t increased pain. Pt requesting PT to return tomorrow and also requests to coordinate pain medications with therapy. RN updated and in agreement. 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 Patient demonstrated mild-min decreased laryngeal elevation across trials. Patient tolerated pudding, solids, nectar thick liquids, and thin liquids without overt signs of aspiration given min cues to use precautions/strategies. Mild SOB was noted over consecutive trials of thin liquids. Recommend a diet upgrade to regular textures and thin liquids with swallow precautions/strategies including: sit up at 90 degrees/as high as tolerated, no straw, small bites/sips, alternate textures,slow rate. Hold po if respiratory status declines/aspiration signs are observed. Plan to continue WARP TIER swallow Tx short term to insure diet tolerance and train strategies. Barriers to return to prior living situation: Level of assist per OT/PT needs Recommendations for discharge: Per OT/PT needs; No WARP TIER needs likely indicated after discharge Rationale for recommendations: Anticipate WARP TIER swallow Tx goal to be be met prior to discharge Entered by: Nikki Romo 05/09/2017 4:09 PM Plan of Care - Awa Meeks RN - 05/09/2017 3:25 PM CDT Problem: Goal Outcome Summary Goal: Goal Outcome Summary Outcome: Improving Patient alert x [address], forgetful at times, mild weakness lower extremity, up with 2 assist to commode and chair with GB and walker, patient c/o sacrum pain from previous fall and getting relief with 2.5 oxy and tylenol. Patient tolerating DD2 with necter. Plan of Care - Marie Zuñiga SLP - 05/09/2017 9:43 AM CDT Problem: Goal Outcome Summary Goal: Goal Outcome Summary WARP TIER: Attempted to see patient at breakfast for diet tolerance, but he was having to much pain to focus safely on eating. Daughter and OT at bedside. Will re- attempt later as able. Plan of Care - Jeanette Carbajal OT - 05/09/2017 9:14 AM CDT Problem: Goal Outcome Summary Goal: Goal Outcome Summary OT: Orders received, evaluation completed, treatment initiated. Pt is a 76 yo male found by daughter who is an ICU nurse, pt was unresponsive and airlifted to [facility]. Pt responded to Narcan, suspected accidental overdose with opiod medication. PMH includes multiple sacral fractures apx 1 month ago with conservative management, and previous spinal surgeries. Pt resides in a house with his , and stays at his cabin, there are multiple stairs at both loations. Two of his daughters have been assisting at home as needed, the pt's also has had a fracture in the last year and is unanble to assist with mobility. Family reports pt was previously ambulating on his own with a FWW and was able to stand for long periods of time, sitting was too uncomfortable. Pt had assist with dressing, and IADLs. Mineral Industry Teacher OT Patient plan for discharge: Home with assist from daughters Current status: Pt MOD A of 2 for supine>sit. Pt has low tolerance for sitting, stood with MIN A of 2 and 2WW. Pt ambulated to chair with CGA-MIN A of 2. Pt able to control descent to chair with JACKIE of 2. Pt too uncomfortable in chair tolerated for 3 min, pain report off the charts. MAX A of 2 to transfer from chair to 2WW, MOD A of 2 to ambulate back to bed, MOD A of 3 for sit >supine. Pt's family present for session. Pt able to follow direction, limited by high pain and reduced ROM for hips and back. Barriers to return to prior living situation: Level of assist for mobility, stairs Recommendations for discharge: TCU; family appears to prefer home, and many family members are trained nurses- pending progress they may be able to manage care with Home therapies Rationale for recommendations: Pt would benefit from skilled OT services to increase IND in ADLs andfunctional mobility Entered by: Jeanette Carbajal 05/09/2017 9:06 AM Plan of Care - Christa Vega, JOSE - 05/09/2017 5:18 AM CDT Problem: Goal Outcome Summary Goal: Goal Outcome Summary Outcome: No Change HR varied from 56-150's overnight. Tele SR with PACs/aflutter/afib with RVR. Hospitalist notified x2. EKG obtained. 5mg PRN metoprolol given x1 for HR > 120 with improvement in rate control. Pt asymptomatic throughout. Slept between cares. Alert, disoriented to place (did not know exact hospital). Forgetful. Neuros intact. CMS intact. Impulsive when needing to use commode. Loose stool x1. Up with assist of 2 + gait belt. Denies pain at rest. C/o pain in coccyx when sitting on commode. Dial in place with adequate output. Takes pills in applesauce. Provider Notification - Joaquina Acosta, JOSE - 05/08/2017 11:15 PM CDT Page to MD plumbing contractor, pt still tachy in high 115-150s - occasionally will drop below 100 but then tachycardia resumes. Given all PRN options. Orders for meds rec'd/updated in DEC. 0030 Bedside RN went togive meds and HR slowed, sustained into 70's long enough to capture strip. Tele strip printed by this magazine writer, pt appears to be in a-flutter. Sent to CCU to verify. 0045 Re-page to MD plumbing contractor regarding underlying rhythm. STAT 12 lead ordered. 0105 Re-page to MD please see EKG results, pt in Afib with RVR. Plan of Care - Rosette Reese RN - 05/08/2017 11:04 PM CDT Problem: Goal Outcome Summary Goal: Goal Outcome Summary Outcome: No Change Alert, oriented x3-4 but is forgetful and will make illogical statements at times. Occasionally impulsive, needs frequent reminders about lines/dial/heart monitor and their purposes. Neuros intact. Oxycodone and scheduled tylenol given for lower right back pain (switched from the norco he was on earlier today). Bedrest this shift except up once with strong 2/GB to BSC for a BM. Tolerating DD2/NT diet but very poor appetite. Tele ST/SR, jumping very frequenting between 80s-120, episode of sustained tachycardia in the 140s, (see MD note), IV metoprolol given, continues to be tachy after metoprolol but not sustained. CIWA 2/3. D/C pending. Provider Notification - Rosette Reese RN - 05/08/2017 9:28 PM CDT Approximately 30-45 minutes of sustained HR in 150s. Asymptomatic, denies chest pain, SOB, palpitations. [address] BP also elevated but pt had been trying to get out of bed. Once repositioned and calmed down BP normalized. Call placed to hospitalist, PRN Metoprolol ordered and given. Drawing Machine Operator also instructed to give scheduled BP meds. Will monitor and call hospitalist back if HR does not improve after Metoprolol. Plan of Care - Gricelda Haji RN - 05/08/2017 2:25 PM CDT Problem: Overdose, Ingestion/Inhalants (Adult) Goal: Signs and Symptoms of Listed Potential Problems Will be Absent or Manageable (Overdose, Ingestion/Inhalants) Signs and symptoms of listed potential problems will be absent or manageable by discharge/transitionof care (reference Overdose, Ingestion/Inhalants (Adult) CPG). Outcome: Improving Pt alert and oriented, however slow with recall. Endorses headache and lightheadedness, complaining of back pain, chronic. Awaiting MRI and pain consult. 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 Pt???s daughters present andreported baseline frequent cough. Pt???s ability to be upright with PO trials is limited due to pain. Pt tolerated upright at approximately 45 degrees. Thin water via teaspoon and cup trialed with poororal control and suspect premature spillage. One instance of coughing noted immediately following cup sip. Pt tolerated nectar thick liquids with no overt s/sx of aspiration. Puree textures trialed with adequate oral phase and no overt s/sx of aspiration. Mild oral residue with regular texture crackerrequiring liquid wash. Recommended: upgrade to dysphagia diet level 2, nectar thick liquids, small bites and sips, encourage pt to be as upright as possible or in a chair for meals. Barriers to return to prior living situation: Pain; fatigue Recommendations for discharge: Possible TCU pending PT/OT evaluations Rationale for recommendations: Pt would benefit from continued ST to target diet tolerance, advancedtrials and strategy training. Entered by: Kassy Chatman 05/08/2017 12:49 PM Plan of Care - Omaira Finney RN - 05/08/2017 11:56 AM CDT Problem: Overdose, Ingestion/Inhalants (Adult) Goal: Signs and Symptoms of Listed Potential Problems Will be Absent or Manageable (Overdose, Ingestion/Inhalants) Signs and symptoms of listed potential problems will be absent or manageable by discharge/transitionof care (reference Overdose, Ingestion/Inhalants (Adult) CPG). Patient is alert, oriented. At times is confused as to where he is. Follows commands. C/o back and hip and back pain but falls to sleep in between assessments. Received Hydralazine once for HTN. Hydrodiueril and lisinopril started as ordered. Had two formed bm's. UOP excellent. sats ok on 2L NC. Lungs diminished. Daughter here, updated. Continue close assessments all sytems and continue to call MD any changes immediately. Support to patient and family. Encourage pulmonary toilet and activity. Plan of Care - Sal Pak RN - 05/08/2017 7:00 AM CDT Problem: Overdose, Ingestion/Inhalants (Adult) Goal: Signs and Symptoms of Listed Potential Problems Will be Absent or Manageable (Overdose, Ingestion/Inhalants) Signs and symptoms of listed potential problems will be absent or manageable by discharge/transitionof care (reference Overdose, Ingestion/Inhalants (Adult) CPG). Outcome: Improving Pt rested off/on overnight, awakes frequently and falls back asleep quickly, slightly confused/forgetful of where he is at times when first awake, pt re- orients independently and quickly, states pain controlled overnight on current pain meds, denies dyspnea or other complaints, back pain is chronic and requires frequent repositioning in addition to pain medications overnight, IV abx continue per DEC,b/p elevated this morning requiring prn hydralizine per DEC, continue to monitor. Plan of Care - Dasha Powell RN - 05/07/2017 10:48 PM CDT Problem: Goal Outcome Summary Goal: Goal Outcome Summary Outcome: Improving More confused, somnolent at onset of shift, now AOX3. C/o GUAMAN and back pain, improved with norco and gabapentin. Palliative consulted to see in am for pain control. LS with wheezes, on RA. Head CT done due to GUAMAN/confusion. Tachycardic at times. Given hydralazine for SBP<160 x 1. Up in chair, tolerating some po. Dial with adequate output. Daughters updated at bedside, would like to be called if patient becomes confused again. Runs of unsustained bradycardia at hs after po metoprolol, d/c'd by hospitalist. Plan of Care - Rita Tobar RN - 05/07/2017 4:53 PM CDT Problem: Overdose, Ingestion/Inhalants (Adult) Goal: Signs and Symptoms of Listed Potential Problems Will be Absent or Manageable (Overdose, Ingestion/Inhalants) Signs and symptoms of listed potential problems will be absent or manageable by discharge/transitionof care (reference Overdose, Ingestion/Inhalants (Adult) CPG). Outcome: No Change Pt. Lethargic to obtunded all day, Tachy dani all day without symptoms, bp high apresoline iv [id number] without much improvement. notified at 1300 hospitalist to see family per request, then pt. Got up to the chair at 1415 brisa. It poorly, got back to bed then had bm and then a worse h/a ever. Dtr conscerned, called again, order for CT head , bp meds given with norco. Cont. To observe, asked MD To assess but MD did not come. Provider Notification - Priscilla Machuca RN - 05/07/2017 3:[address] Garcia notified of patient complaining of worst headache of his life. Hosptalist ordered to give low dose Ruby and stat head CT. Notified primary nurse. 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 Pt alert in chair with max cues and redirection needed as pt continued to request to ???get out of here.?? Pt able to be redirected briefly with trial of ice chip with adequate mastication and timely swallow. Thin water via cup trialed with immediate cough noted. One trial of nectar thick liquids via teaspoon with no overt s/sx of aspiration. Pt appeared to become agitated and refused multiple attempts. RN notified of pt???s request for bathroom. Recommended: full liquid, nectar thick diet, ice chips ok, pt upright and alert with trials, crush meds in puree, Discontinue if overt s/sx of aspiration. ST to follow up daily for diet tolerance and upgrade as appropriate. Barriers to return to prior living situation: Confusion/dysphagia Recommendations for discharge: Pending pt progress/improvment in confusion Rationale for recommendations: Continued ST needed to assess diet tolerance and advance as appropriate, training on safe swallow strategies as needed Entered by: Kassy Chatman 05/07/2017 2:47 PM Plan of Care - Marie Zuñiga WARP TIER - 05/07/2017 9:47 AM CDT Problem: Goal Outcome Summary Goal: Goal Outcome Summary WARP TIER: Attempted to see patient for swallow treatment but was only able to keep his eyes opened briefly. Due to lethargy and confusion recommend: 1. NPO except for medications if awake otherwise, I.V. Form. Plan of Care - Vijaya Resendiz, OT - 05/07/2017 8:14 AM CDT Problem: Goal Outcome Summary Goal: Goal Outcome Summary PT: Per conversation with nursing, patient not appropriate for PT treatment today. Plan of Care - Nai Jordan RN - 05/07/2017 6:47 AM CDT Problem: Goal Outcome Summary Goal: Goal Outcome Summary Outcome: No Change See prior notes. Pt given one time dose of Ativan 1mg for ciwa score of 12. Pt experiencing hallucinations, impulsiveness and tremors. Pt very obtunded from this. Awoke, oriented at 0400 cares and muchimproved at 0600. Although, cont to readily fall back asleep. Pt went into Afib with RVR and given prn metoprolol per prn order after discussing with instructional design technologist. Pt then had periods of tachy/dani. See multiple rhythm strips. BP high with minimal response to newly ordered hydralazine. Pt tolerated bipap at two different intervals. Despite prn duonebs, pt remains extremely wheezey and dyspnic on exertion. Obtained order for CXR. Dr Rodriguez notified and updated of all events. To read CXR. CR improved with good UOP. Temp max 37.6. Low dose nuerontin and prn norco initiated for nueropathy and pain. Single dose given of both without any further c/o pain. Cont current plan of care. Provider Notification - Nai Jordan RN - 05/07/2017 3:35 AM CDT Pt asleep experiencing tachy/dani episodes, see strips. Back in sinus rhythm but with elevated BP, 160-180's/100-110's, with multiple rechecks. Dr Rodriguez updated and given order for prn hydralazine. Monitor effects. Provider Notification - Nai Jrodan RN - 05/07/2017 12:45 AM CDT Pt rhythm afib with rvr during sleep. BP stable. Given prn metoprolol 2.5mg and Dr Rodriguez updated. Re ordered pt home med of po metoprolol at 25mg to start in the am. Rate currently down to 110. Cont current plan Provider Notification - Nai Jordan RN - 05/06/2017 11:40 PM CDT Pt initially scored 0 on CIWA scale. Pt then began having visual hallucinations, seeing and talking to the woman in the light in the ceiling and ready to go upstairs to watch the movie. Restless but cooperative. Unable to tolerate bipap for more than 30 minutes, anxious, tachypnic. Impulsive when using the bedpan. Dr Rodriguez updated. Ordered ciwa ativan protocol. But discussed current dosing needand agreed that 1mg of ativan would be adequate at this time. Given with good result. Pt appears to rest. Plan of Care - Kirsten Ramirez RN - 05/06/2017 7:31 PM CDT Problem: Goal Outcome Summary Goal: Goal Outcome Summary Outcome: Improving Pt more awake, confused at times. Narcan gtt d/c'd. VSS. Good urine output per dial. Pt started on thickened liquids. Temp max 38 (c). Lungs with expiratory wheezes, congested. Nebs ordered. Family atbedside throughout the day - updated on plan of care. Cont to monitor. Provider Notification - Kirsten Ramirez RN - 05/06/2017 4:48 PM CDT Pt developed a dysrhythmia this afternoon with HR 110's then drop to the 50's. 02 sats remained stable. EKG, and labs ordered. Cont to monitor. 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 76 yo male found unresponsive, airlifted to [facility]. PMH includes recent multiple sacral fractures. Pt resides in a house with his , there are multiple stairs. Two of his daughters have been assisting at home as needed, the pt's also has had a fracture in the last year and is unanble to assist with mobility. Patient plan for discharge: Home with assist from daughters Current status: Mod A to roll L and R, Max A x 2 for EOB dangle. Pt too painful to remain upright, reports L LE pain, cramping and intolerance. Returned to supine with Ax3. Sleepy, oriented to self, place, date a little confused on situation. Recognizes all family members in the room. Barriers to return to prior living situation: Level of assist, poor pain control, fatigue, weakness,decreased activity tolerance, inability to ambulate Recommendations for discharge: TCU Rationale for recommendations: See above. 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 Patient presents with mild to moderate oral andpharyngeal dysphagia at bedside. Deficits include: premature entry of thin liquids with minimal delay. Cough x1 but not sure if directly related to his swallow function. (Baseline cough) He tolerate teaspoon amount of nectar thick liquid without overt Sx of aspiration. He took several swallows of pudding with adequate bolus control, AP transport and clearing. Barriers to safe swallowing at this time is ability to have HOB fully upright secondary to pain, confusion and fatigue. Recommend: 1. Cautiously initiate a full liquid diet. 2. Must be fully alert, upright as high as tolerated, small sips/bites, alternate liquids/solids, crush medication and place in pudding. If coughing noted after swallows of thin liquids change to nectar consistency. If changes in his respiratory status hold the diet. 3. WARP TIER will f/u for diet tolerance on 05/07/17. Barriers to return to prior living situation: Confusion and dysphagia Recommendations for discharge: Anticipate IP rehab. Rationale for recommendations: Given current confusion needs IP treatment. Entered by: Marie Zuñiga 05/06/2017 1:31 PM Plan of Care - Niecy Ramirez RN - 05/06/2017 6:33 AM CDT Problem: Goal Outcome Summary Goal: Goal Outcome Summary Outcome: Improving A&Ox2-3, more alert throughout shift. Follows appropriately. VSS on 2L. Denies pain. Will continue to monitor. Provider Notification - Lucero Díaz RN - 05/05/2017 7:13 PM CDT Neuro: Obtunded. Arouses intermittently to vigorous sternal rub. MD aware, instructional design technologist consult. [place] reassess at 2000 for intubation. CV: SR, pressure stable. Pulm: LS coarse, BIPAP. GI/: Abd distended. Adequate clear urine output. Skin: intact Lines: 2 periph iv Plan: plan to reassess arousal level and ABG at 1999 Pharmacy-Admission Medication History - Victoriano Villa RPH - 05/05/2017 4:44 PM CDT Admission medication history interview status for the 05/05/2017 admission is complete. See [facility] admission navigator for prior to admission medications Medication history source reliability:Good Actions taken by pharmacist (provider contacted, etc):None Additional medication history information not noted on [employer] med list : ----Pt unresponsive. Medication bottles provided by family. The med list is done based on the bottles provided. ----Deleted tolterodine, Bactrim, simvastatin, misoprostol, multivitamin. Medication reconciliation/reorder completed by provider prior to medication history? No Time spent in this activity: 20 min Prior to Admission medications Medication Sig Last Dose Taking? Auth Provider PREDNISONE PO Filled on 04/30/17. Take 15 mg x3 days; 10 mg x3 days. And 5 mg x3 days. Yes Reported, Patient GABAPENTIN PO Take 300-900 mg by mouth daily as needed Yes Reported, Patient ASPIRIN PO Take 81 mg by mouth daily Yes Reported, Patient CYCLOBENZAPRINE HCL PO Take 10 mg by mouth 2 times daily as needed Yes Reported, Patient HYDROcodone-acetaminophen (NORCO) 7.5-325 MG per tablet Take 1-1.5 tablets by mouth every 4 hours asneeded for moderate to severe pain Yes Unknown, Entered By History Morphine Sulfate (MS CONTIN PO) Take 15 mg by mouth 2 times daily Yes Unknown, Entered By History TERAZOSIN HCL PO Take 5 mg by mouth At Bedtime Yes Unknown, Entered By History ATORVASTATIN CALCIUM PO Take 40 mg by mouth daily Yes Unknown, Entered By History METOPROLOL TARTRATE PO Take 50 mg by mouth 2 times daily. Yes Reported, Patient documented in this encounter Plan of Treatment Scheduled Referrals Name Type Priority Associated Diagnoses Order S chedule Follow-Up with Referral Routine Paroxysmal atrial Expected : Cloth Examiner Machine fibrillation (H) 05/20 (Approximate), Expires: 05/11/2018 Home Care PT Referral for Referral Routine Enceph alopathy Ordered: Hospital Discharge Aspiration pneumonia, 05/12/2017 unspecified aspiration pneumonia type, unspecified laterality, unspecified part of lung (H) Home Care OT Referral for Referral Routine Enceph alopathy Ordered: Hospital Discharge Aspiration pneumonia, 05/12/2017 unspecified aspiration pneumonia type, unspecified laterality, unspecified part of lung (H) Home Care WARP TIER Referral for Referral Routine Encep halopathy Ordered: Hospital Discharge Aspiration pneumonia, 05/12/2017 unspecified aspiration pneumonia type, unspecified laterality, unspecified part of lung (H) HOME CARE NURSING REFERRAL Referral Routine Aspiration pne umonia, Ordered: unspecified 05/12/2017 aspiration pneumonia type, unspecified laterality, unspecified part of lung (H) documented as of this encounter Procedures Procedure Name Priority Date/Time Associated Comments Diagnosis BASIC METABOLIC PANEL Routine 05/12/2017 8:52 AM Opioid overdo se, Results for this CDT accidental or procedure are in unintentional, the results initial encounter section. VITAMIN D DEFICIENCY Routine 05/11/2017 11:37 Opioid overdose, Results for this SCREENING AM CDT accidental or procedure are in unintentional, the results initial encounter section. LIPID PROFILE Routine 05/11/2017 11:37 Opioid overdose, Result s for this AM CDT accidental or procedure are in unintentional, the results initial encounter section. HEMOGLOBIN A1C Routine 05/11/2017 11:37 Opioid overdose, Resul ts for this AM CDT accidental or procedure are in unintentional, the results initial encounter section. VITAMIN B12 Routine 05/11/2017 11:37 Opioid overdose, Results for this AM CDT accidental or procedure are in unintentional, the results initial encounter section. PLATELET COUNT Routine 05/11/2017 7:17 AM Aspiration Results for this CDT pneumonia, procedure are i n unspecified the results aspiration section. pneumonia type, unspecified laterality, unspecified part of lung (H) BASIC METABOLIC PANEL Routine 05/11/2017 7:17 AM Aspiration Results for this CDT pneumonia, procedure are i n unspecified the results aspiration section. pneumonia type, unspecified laterality, unspecified part of lung (H) CBC WITH PLATELETS & Routine 05/10/2017 7:43 AM Aspiration R esults for this DIFFERENTIAL CDT pneumonia, procedure are i n unspecified the results aspiration section. pneumonia type, unspecified laterality, unspecified part of lung (H) BASIC METABOLIC PANEL Routine 05/10/2017 7:43 AM Aspiration Results for this CDT pneumonia, procedure are i n unspecified the results aspiration section. pneumonia type, unspecified laterality, unspecified part of lung (H) MR BRAIN W/O & W Routine 05/09/2017 1:52 PM Resul ts for this CONTRAST CDT procedure are i n the results section. CBC WITH PLATELETS & Routine 05/09/2017 7:27 AM Aspiration R esults for this DIFFERENTIAL CDT pneumonia, procedure are i n unspecified the results aspiration section. pneumonia type, unspecified laterality, unspecified part of lung (H) BASIC METABOLIC PANEL Routine 05/09/2017 7:27 AM Aspiration Results for this CDT pneumonia, procedure are i n unspecified the results aspiration section. pneumonia type, unspecified laterality, unspecified part of lung (H) EKG 12-LEAD, TRACING STAT 05/09/2017 12:59 Res ults for this ONLY AM CDT procedure are i n the results section. EKG 12-LEAD, TRACING STAT 05/08/2017 9:00 PM R esults for this ONLY CDT procedure are i n the results section. LACTIC ACID WHOLE STAT 05/08/2017 8:45 PM Aspiration Resu lts for this BLOOD CDT pneumonia, procedure are i n unspecified the results aspiration section. pneumonia type, unspecified laterality, unspecified part of lung (H) CBC WITH PLATELETS & Routine 05/08/2017 5:00 AM Aspiration R esults for this DIFFERENTIAL CDT pneumonia, procedure are i n unspecified the results aspiration section. pneumonia type, unspecified laterality, unspecified part of lung (H) NT PROBNP INPATIENT Routine 05/08/2017 5:00 AM Aspiration Re sults for this CDT pneumonia, procedure are i n unspecified the results aspiration section. pneumonia type, unspecified laterality, unspecified part of lung (H) BASIC METABOLIC PANEL Routine 05/08/2017 5:00 AM Aspiration Results for this CDT pneumonia, procedure are i n unspecified the results aspiration section. pneumonia type, unspecified laterality, unspecified part of lung (H) CT HEAD W/O CONTRAST STAT 05/07/2017 5:04 PM R esults for this CDT procedure are i n the results section. GLUCOSE BY METER Routine 05/07/2017 4:19 PM Aspiration Resul ts for this CDT pneumonia, procedure are i n unspecified the results aspiration section. pneumonia type, unspecified laterality, unspecified part of lung (H) ECHO COMPLETE WITH Routine 05/07/2017 11:36 Resul ts for this OPTISON AM CDT procedure are i n the results section. XR CHEST PORT 1 VIEW Routine 05/07/2017 5:07 AM R esults for this CDT procedure are i n the results section. CBC WITH PLATELETS & Routine 05/07/2017 4:50 AM Aspiration R esults for this DIFFERENTIAL CDT pneumonia, procedure are i n unspecified the results aspiration section. pneumonia type, unspecified laterality, unspecified part of lung (H) PHOSPHORUS Routine 05/07/2017 4:50 AM Aspiration Results f or this CDT pneumonia, procedure are i n unspecified the results aspiration section. pneumonia type, unspecified laterality, unspecified part of lung (H) MAGNESIUM Routine 05/07/2017 4:50 AM Aspiration Results f or this CDT pneumonia, procedure are i n unspecified the results aspiration section. pneumonia type, unspecified laterality, unspecified part of lung (H) HEPATIC FUNCTION PANEL Routine 05/07/2017 4:50 AM Aspiration Results for this CDT pneumonia, procedure are i n unspecified the results aspiration section. pneumonia type, unspecified laterality, unspecified part of lung (H) BASIC METABOLIC PANEL Routine 05/07/2017 4:50 AM Aspiration Results for this CDT pneumonia, procedure are i n unspecified the results aspiration section. pneumonia type, unspecified laterality, unspecified part of lung (H) MAGNESIUM STAT 05/06/2017 5:18 PM Aspiration Results f or this CDT pneumonia, procedure are i n unspecified the results aspiration section. pneumonia type, unspecified laterality, unspecified part of lung (H) CALCIUM STAT 05/06/2017 5:18 PM Aspiration Results f or this CDT pneumonia, procedure are i n unspecified the results aspiration section. pneumonia type, unspecified laterality, unspecified part of lung (H) EKG 12-LEAD, TRACING Routine 05/06/2017 5:08 PM R esults for this ONLY CDT procedure are i n the results section. HEPATIC FUNCTION PANEL Routine 05/06/2017 4:45 AM Aspiration Results for this CDT pneumonia, procedure are i n unspecified the results aspiration section. pneumonia type, unspecified laterality, unspecified part of lung (H) BASIC METABOLIC PANEL Routine 05/06/2017 4:45 AM Aspiration Results for this CDT pneumonia, procedure are i n unspecified the results aspiration section. pneumonia type, unspecified laterality, unspecified part of lung (H) CBC WITH PLATELETS Routine 05/06/2017 4:45 AM Aspiration Res ults for this CDT pneumonia, procedure are i n unspecified the results aspiration section. pneumonia type, unspecified laterality, unspecified part of lung (H) GLUCOSE BY METER Routine 05/06/2017 4:17 AM Aspiration Resul ts for this CDT pneumonia, procedure are i n unspecified the results aspiration section. pneumonia type, unspecified laterality, unspecified part of lung (H) GLUCOSE BY METER Routine 05/05/2017 11:41 Aspiration Results for this PM CDT pneumonia, procedure are i n unspecified the results aspiration section. pneumonia type, unspecified laterality, unspecified part of lung (H) BASIC METABOLIC PANEL Routine 05/05/2017 10:35 Aspiration Re sults for this PM CDT pneumonia, procedure are i n unspecified the results aspiration section. pneumonia type, unspecified laterality, unspecified part of lung (H) BLOOD GAS ARTERIAL Routine 05/05/2017 8:20 PM Aspiration Res ults for this WITH OXYHEMOGLOBIN CDT pneumonia, procedure are in unspecified the results aspiration section. pneumonia type, unspecified laterality, unspecified part of lung (H) GLUCOSE BY METER Routine 05/05/2017 8:06 PM Aspiration Resul ts for this CDT pneumonia, procedure are i n unspecified the results aspiration section. pneumonia type, unspecified laterality, unspecified part of lung (H) GLUCOSE BY METER Routine 05/05/2017 5:35 PM Aspiration Resul ts for this CDT pneumonia, procedure are i n unspecified the results aspiration section. pneumonia type, unspecified laterality, unspecified part of lung (H) ISTAT GASES ARTERIAL Routine 05/05/2017 5:27 PM Aspiration R esults for this POCT CDT pneumonia, procedure are i n unspecified the results aspiration section. pneumonia type, unspecified laterality, unspecified part of lung (H) URINE MICROSCOPIC Routine 05/05/2017 5:20 PM Aspiration Resu lts for this CDT pneumonia, procedure are i n unspecified the results aspiration section. pneumonia type, unspecified laterality, unspecified part of lung (H) UA MACROSCOPIC WITH STAT 05/05/2017 5:20 PM Aspiration Re sults for this REFLEX TO MICROSCOPIC CDT pneumonia, proced ure are in AND CULTURE unspecified the results aspiration section. pneumonia type, unspecified laterality, unspecified part of lung (H) DRUG ABUSE SCREEN 77 Routine 05/05/2017 5:20 PM Aspiration R esults for this URINE (FL, RH, SH) CDT pneumonia, procedure are in unspecified the results aspiration section. pneumonia type, unspecified laterality, unspecified part of lung (H) BLOOD CULTURE STAT 05/05/2017 4:30 PM Aspiration Results for this CDT pneumonia, procedure are i n unspecified the results aspiration section. pneumonia type, unspecified laterality, unspecified part of lung (H) BIPAP FOR STABLE SLEEP STAT 05/05/2017 3:55 PM APNEA WITH HOME CDT EQUIPMENT SETTINGS LACTIC ACID WHOLE STAT 05/05/2017 3:50 PM Aspiration Resu lts for this BLOOD CDT pneumonia, procedure are i n unspecified the results aspiration section. pneumonia type, unspecified laterality, unspecified part of lung (H) BLOOD CULTURE STAT 05/05/2017 3:45 PM Aspiration Results for this CDT pneumonia, procedure are i n unspecified the results aspiration section. pneumonia type, unspecified laterality, unspecified part of lung (H) XR CHEST PORT 1 VIEW STAT 05/05/2017 3:40 PM R esults for this CDT procedure are i n the results section. BLOOD GAS ARTERIAL STAT 05/05/2017 3:33 PM Res ults for this WITH OXYHEMOGLOBIN CDT procedure are in the results section. TROPONIN POCT Routine 05/05/2017 3:29 PM Results for this CDT procedure are i n the results section. ISTAT ELECTROLYTES Routine 05/05/2017 3:27 PM Res ults for this POCT CDT procedure are i n the results section. EKG 12-LEAD, TRACING STAT 05/05/2017 3:24 PM R esults for this ONLY CDT procedure are i n the results section. GLUCOSE BY METER Routine 05/05/2017 3:23 PM Resul ts for this CDT procedure are i n the results section. CBC WITH PLATELETS & STAT 05/05/2017 3:20 PM R esults for this DIFFERENTIAL CDT procedure are i n the results section. SALICYLATE LEVEL STAT 05/05/2017 3:20 PM Resul ts for this CDT procedure are i n the results section. COMPREHENSIVE STAT 05/05/2017 3:20 PM Results for this METABOLIC PANEL CDT procedure ar e in the results section. CK TOTAL Routine 05/05/2017 3:20 PM Aspiration Results f or this CDT pneumonia, procedure are i n unspecified the results aspiration section. pneumonia type, unspecified laterality, unspecified part of lung (H) ETHYL ALCOHOL LEVEL Routine 05/05/2017 3:20 PM Re sults for this CDT procedure are i n the results section. ACETAMINOPHEN LEVEL STAT 05/05/2017 3:20 PM Re sults for this CDT procedure are i n the results section. documented in this encounter Results (ABNORMAL) Basic metabolic panel (05/12/2017 8:52 AM CDT) Analysis Performed At Path logis Time Signature Sodium 144 133 - 144 [place] mmol/L [facility] Potassium 4.0 3.4 - 5.3 [place] mmol/L [facility] Chloride 112 (H) 94 - 109 [place] mmol/L [facility] Carbon Dioxide 22 20 - 32 [place] mmol/L [facility] Anion Gap 10 3 - 14 [place] mmol/L [facility] Glucose 111 (H) 70 - 99 [place] mg/dL [facility] Urea Nitrogen 25 7 - 30 [place] mg/dL [facility] Creatinine 1.55 (H) 0.66 - [place] 1.25 mg/dL [facility] GFR Estimate 44 (L) >60 [place] mL/min/1.[address] Comment: Non GFR Calc GFR Estimate If Black 53 (L) >60 mL/min/1.7m2 F [facility] Comment: GFR Calc Calcium 8.1 (L) 8.5 - 10.1 mg/dL [facility] Specimen Anatomical Collection Method Collection Time Receive d Time (Source) Location / / Volume Laterality Blood specimen 05/12/2017 8:52 AM 017 9:02 (specimen) CDT AM CDT Nikhil Rodriguez DO LAB - BLOOD ORDERABLES Performing Organization Address City/State/ZIP Code Phon e Number [facility] [address] [phone] [facility] [address] [address], [place] [phone] Hemoglobin A1c (05/11/2017 11:37 AM CDT) athologist Signature Hemoglobin A1C 5.6 4.3 - 6.0 [facility] Specimen Anatomical Collection Method Collection Time Receive d Time (Source) Location / / Volume Laterality Blood specimen 05/11/2017 11:37 7 (specimen) AM CDT 11:57 AM CDT Natasha Jen Counters PMO BUSINESS ANALYST [employer] LAB - BLOOD ORDERABLES Performing Organization Address City/State/ZIP Code Phon e Number [facility] [address] [address] [facility] [address] [address], [place] [phone] Vitamin B12 (05/11/2017 11:37 AM CDT) athologist Signature Vitamin B12 800 193 - 986 [facility] pg/mL [facility] Specimen Anatomical Collection Method Collection Time Receive d Time (Source) Location / / Volume Laterality Blood specimen 05/11/2017 11:37 7 (specimen) AM CDT 11:57 AM CDT Natasha Jen Counters PMO BUSINESS ANALYST [employer] LAB - BLOOD ORDERABLES Performing Organization Address City/State/ZIP Code Phon e Number [address] [address] [facility] Vitamin D Deficiency (05/11/2017 11:37 AM CDT) athologist Signature Vitamin D 26 20 - 75 [facility] Deficiency ug/L [place] [facility] Comment: Season, race, dietary intake, and treatm ent affect the concentration of 98-lfpzlen-Pllhixu D. Values may decrea se during winter months and increase during summer months. Values 20-29 ug/L may indicate Vitamin D insufficiency and values <20 ug/L may indicate Vitami n D deficiency. Vitamin D determination is routinely pe rformed by an immunoassay specific for 25 hydroxyvitamin D3. ??If an individua l is on vitamin D2 (ergocalciferol) supplementation, please specify 25 [place] v itamin D2 and D3 level determination by LCMSMS test VITD23. Specimen Anatomical Collection Method Collection Time Receive d Time (Source) Location / / Volume Laterality Blood specimen 05/11/2017 11:37 7 (specimen) AM CDT 11:57 AM CDT Natasha Jen Counters PMO BUSINESS ANALY[employer] LAB - BLOOD ORDERABLES Performing Organization Address City/[facility]/ZIP Code Phon e Number [phone] [place] [address] (ABNORMAL) Lipid Profile (05/11/2017 11:37 AM CDT) P athologist Signature Cholesterol 128 <200 mg/dL [facility] Triglycerides 164 (H) <150 mg/dL [facility] Comment: Borderline high: ??150-199 mg/dl High: ? 200-499 mg/dl Very high: ? >499 mg/dl HDL Cholesterol 44 >39 mg/dL [facility] LDL Cholesterol Calculated 51 <100 mg/dL [facility] Comment: Desirable: <100 mg/dl Non HDL Cholesterol 84 <130 mg/dL [facility] Specimen Anatomical Collection Method Collection Time Receive d Time (Source) Location / / Volume Laterality Blood specimen 05/11/2017 11:37 7 (specimen) AM CDT 11:57 AM CDT Natasha Jen Counters PMO BUSINESS ANALY[employer] LAB - BLOOD ORDERABLES Performing Organization Address City/[facility]/ZIP Code Phon e Number [facility] [address] [address] [phone] [facility] [address] [address], [place] [phone] Platelet count (05/11/2017 7:17 AM CDT) P athologist Signature Platelet Count 169 150 - 450 [place] 10e9/L [facility] Specimen Anatomical Collection Method Collection Time Receive d Time (Source) Location / / Volume Laterality Blood specimen 05/11/2017 7:17 AM 017 7:30 (specimen) CDT AM CDT Stephany Farley MD LAB - BLOOD ORDERABLES Performing Organization Address City/State/ZIP Code Phon e Number [facility] [address] [place] [address] [facility] [address] [place] [address], [place] [phone] (ABNORMAL) Basic metabolic panel (05/11/2017 7:17 AM CDT) Analysis Performed At Path logist Time Signature Sodium 144 133 - 144 [place] mmol/L [facility] Potassium 3.7 3.4 - 5.3 [place] mmol/L [facility] Chloride 112 (H) 94 - 109 [place] mmol/L [facility] Carbon Dioxide 23 20 - 32 [place] mmol/L [facility] Anion Gap 9 3 - 14 [place] mmol/L [facility] Glucose 94 70 - 99 [place] mg/dL [facility] Urea Nitrogen 25 7 - 30 [place] mg/dL [facility] Creatinine 1.56 (H) 0.66 - [place] 1.25 mg/dL [facility] GFR Estimate 44 (L) >60 [place] mL/min/1.[address] Comment: Non GFR Calc GFR Estimate If Black 53 (L) >60 mL/min/1.7m2 F [facility] Comment: GFR Calc Calcium 8.5 8.5 - 10.1 mg/dL [facility] Specimen Anatomical Collection Method Collection Time Receive d Time (Source) Location / / Volume Laterality Blood specimen 05/11/2017 7:17 AM 017 7:30 (specimen) CDT AM CDT Isra Greene MD LAB - BLOOD ORDERABLES Performing Organization Address City/State/ZIP Code Phon e Number M [facility] [address] [place] [address] [facility] [address] [address], [place] [phone] (ABNORMAL) CBC with platelets differential (05/10/2017 7:43 AM CDT) [facility] gist Method Time Signature WBC 7.7 4.0 - [place] 11.[address] RBC Count 3.89 (L) 4.4 - 5.9 [place] 10e12/L [facility] Hemoglobin 12.7 (L) 13.3 - [place] 17.7 g/dL [facility] Hematocrit 37.0 (L) 40.0 - [place] 53.0 % [facility] MCV 95 78 - [address] [place] [address] [facility] MCH 32.6 26.5 - [place] 33.[address] [facility] MCHC 34.3 31.5 - [place] 36.5 g/dL [facility] RDW 13.3 10.0 - [place] 15.0 % [facility] Platelet Count 168 150 - [address] Diff Method Automated [place] Method [facility] % Neutrophils 68.9 % [facility] % Lymphocytes 17.9 % [facility] % Monocytes 9.7 % [facility] % Eosinophils 2.6 % [facility] % Basophils 0.3 % [facility] % Immature 0.6 % [place] Granulocytes [facility] Nucleated RBCs 0 0 /100 [facility] Absolute 5.3 1.6 - 8.3 [place] Neutrophil 109[facility] Absolute 1.4 0.8 - 5.3 [place] Lymphocytes 109[facility] Absolute 0.8 0.0 - 1.3 [place] Monocytes [facility] Absolute 0.2 0.0 - 0.7 [place] Eosinophils [facility] Absolute 0.0 0.0 - 0.2 [place] Basophils 109[facility] Abs Immature 0.1 0 - 0.4 [place] Granulocytes [address] [place] [address] Absolute 0.[address] [place] [address] [facility] Specimen Anatomical Collection Method Collection Time Receive d Time (Source) Location / / Volume Laterality Blood specimen 05/10/2017 7:43 AM 017 8:05 (specimen) CDT AM CDT Isra Greene MD LAB - BLOOD ORDERABLES Performing Organization Address City/State/ZIP Code Phon e Number M [facility] [address] [place] [address] [facility] [address] [place] [address] [address], [place] [phone] (ABNORMAL) Basic metabolic panel (05/10/2017 7:43 AM CDT) Analysis Performed At Path logis Time Signature Sodium 144 133 - 144 [place] mmol/L [facility] Potassium 3.5 3.4 - 5.3 [place] mmol/L [facility] Chloride 111 (H) 94 - 109 [place] mmol/L [facility] Carbon Dioxide 23 20 - 32 [place] mmol/L [facility] Anion Gap 10 3 - 14 [place] mmol/L [facility] Glucose 97 70 - 99 [place] mg/dL [facility] Urea Nitrogen 24 7 - 30 [place] mg/dL [facility] Creatinine 1.49 (H) 0.66 - [place] 1.25 mg/dL [facility] GFR Estimate 46 (L) >60 [place] mL/min/1.[address] Comment: Non GFR Calc GFR Estimate If Black 56 (L) >60 mL/min/1.7m2 F [facility] Comment: GFR Calc Calcium 8.6 8.5 - 10.1 mg/dL [facility] Specimen Anatomical Collection Method Collection Time Receive d Time (Source) Location / / Volume Laterality Blood specimen 05/10/2017 7:43 AM 017 8:05 (specimen) CDT AM CDT Isra Greene MD LAB - BLOOD ORDERABLES Performing Organization Address City/State/ZIP Code Phon e Number [facility] [address] [address] [facility] [address] [address], [place] [phone] MR Brain w/o & w Contrast (05/09/2017 1:52 PM CDT) Anatomical Region Laterality Modality Head, SUBRAD MR NEURO, UMP MR NEURO Magn etic Resonance Specimen (Source) Anatomical Location Collection Method / Collectio n Time Received Time / Laterality Volume Impressions 05/09/2017 2:05 PM CDT IMPRESSION: 1. Limited diffusion consistent with isc hemia or infarcts in the left hippocampal formation and in the cortex of the medial left superior frontal gyrus. 2. Brain atrophy and white matter change s consistent with sequelae of small vessel ischemic disease. ?? MOLLY GARCIA MD Narrative 05/09/2017 2:05 PM CDT MRI BRAIN WITHOUT AND WITH CONTRAST May 09, 2017 1:52 PM HISTORY: Continued encephalopathy. 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 Found unresponsive. Confus ion. TECHNIQUE: Multiplanar, multisequence MR I of the brain without and with 10 mL Gadavist. COMPARISON: CT scan 05/07/2017. FINDINGS: There is limited diffusion in the left hippocampal formation. There is also a tiny focus of limited diffusion in the medial aspect of the left superior front al gyrus. ??There is no evidence of intracranial hemorrhage. The re is generalized atrophy of the brain. White matter changes are pres ent in the cerebral hemispheres that are consistent with sma ll vessel ischemic disease in this age patient. ??There are no gadolin ium enhancing lesions. Artifacts are seen from a small keny of metal in the patient's right lateral frontal scalp. The facial structures appear normal. The arteries at the base of the brain and the dural venous sinuses appea r patent. Procedure Note Molly Garcia MD - 05/09/2017Formatt ing of this note might be different from the original. MRI BRAIN WITHOUT AND WITH CONTRAST May 09, 2017 1:52 PM HISTORY: Continued encephalopathy. 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 Found unresponsive. Confus ion. TECHNIQUE: Multiplanar, multisequence MR I of the brain without and with 10 mL Gadavist. COMPARISON: CT scan 05/07/2017. FINDINGS: There is limited diffusion in the left hippocampal formation. There is also a tiny focus of limited diffusion in the medial aspect of the left superior front al gyrus. There is no evidence of intracranial hemorrhage. The re is generalized atrophy of the brain. White matter changes are pres ent in the cerebral hemispheres that are consistent with sma ll vessel ischemic disease in this age patient. There are no gadoliniu m enhancing lesions. Artifacts are seen from a small keny of metal in the patient's right lateral frontal scalp. The facial structures appear normal. The arteries at the base of the brain and the dural venous sinuses appea r patent. IMPRESSION: 1. Limited diffusion consistent with isc hemia or infarcts in the left hippocampal formation and in the cortex of the medial left superior frontal gyrus. 2. Brain atrophy and white matter change s consistent with sequelae of small vessel ischemic disease. MOLLY GARCIA MD Stephany Farley MD IMG MRI ORDERABLES (ABNORMAL) CBC with platelets differential (05/09/2017 7:27 AM CDT) [facility] gist Method Time Signature WBC 9.5 4.0 - [place] 11.0 [facility] 10e9/[facility] RBC Count 3.94 (L) 4.4 - 5.9 [place] 10e12/L [facility] Hemoglobin 12.9 (L) 13.3 - [place] 17.7 g/dL [facility] Hematocrit 37.0 (L) 40.0 - [place] 53.0 % [facility] MCV 94 78 - [address] [place] [address] [facility] MCH 32.7 26.5 - [facility] 33[facility] [facility] MCHC 34.9 31.5 - [place] 36.5 g/dL [facility] RDW 13.1 10.0 - [place] 15.0 % [facility] Platelet Count 185 150 - 450 [place] 10e9/L [facility] Diff Method Automated [place] Method [facility] % Neutrophils 74.3 % [facility] % Lymphocytes 13.7 % [facility] % Monocytes 9.3 % [facility] % Eosinophils 2.2 % [facility] % Basophils 0.1 % [facility] % Immature 0.4 % [place] Granulocytes [facility] Nucleated RBCs 0 0 /100 [facility] Absolute 7.1 1.6 - 8.3 [place] Neutrophil 10e9/L [facility] Absolute 1.3 0.8 - 5.3 [place] Lymphocytes 10e9/L [facility] Absolute 0.9 0.0 - 1.3 [place] Monocytes 10e9/L [facility] Absolute 0.2 0.0 - 0.7 [place] Eosinophils 10e9/L [facility] Absolute 0.0 0.0 - 0.2 [place] Basophils 10e9/L [facility] Abs Immature 0.0 0 - 0.4 [place] Granulocytes 10e9/L [facility] Absolute 0.[address] [place] [address] [facility] Specimen Anatomical Collection Method Collection Time Receive d Time (Source) Location / / Volume Laterality Blood specimen 05/09/2017 7:27 AM 017 7:40 (specimen) CDT AM CDT Stephany Farley MD LAB - BLOOD ORDERABLES Performing Organization Address City/[facility]/ZIP [facility] Phon e Number [facility] [address] [address] [phone] [facility] [address] [place] [address] [address], [place] [phone] (ABNORMAL) Basic metabolic panel (05/09/2017 7:27 AM CDT) Analysis Performed At Patho logist Time Signature Sodium 142 133 - 144 [place] mmol/L [facility] Potassium 3.5 3.4 - 5.3 [place] mmol/L [facility] Chloride 110 (H) 94 - 109 [place] mmol/L [facility] Carbon Dioxide 21 20 - 32 [place] mmol/L [facility] Anion Gap 11 3 - 14 [place] mmol/L [facility] Glucose 105 (H) 70 - 99 [place] mg/dL [facility] Urea Nitrogen 22 7 - 30 [place] mg/dL [facility] Creatinine 1.44 (H) 0.66 - [place] 1.25 mg/dL [facility] GFR Estimate 48 (L) >60 [place] mL/min/1.[address] Comment: Non GFR Calc GFR Estimate If Black 58 (L) >60 mL/min/1.7m2 F [facility] Comment: GFR Calc Calcium 9.1 8.5 - 10.1 mg/dL [facility] Specimen Anatomical Collection Method Collection Time Receive d Time (Source) Location / / Volume Laterality Blood specimen 05/09/2017 7:27 AM 017 7:40 (specimen) CDT AM CDT Stephany Farley MD LAB - BLOOD ORDERABLES Performing Organization Address City/State/ZIP Code Phon e Number M [facility] [address] [place] [address] [facility] [address] [place] [address], [place] [phone] EKG 12-lead, tracing only (05/09/2017 12:59 AM CDT) [facility] Method Time Signature Interpretation ECG Click View RADIOLOGY Image link RESULTS to view waveform and result Specimen (Source) Anatomical Collection Method Collection Time Re ceived Time Location / / Volume Laterality 05/09/2017 12:59 AM CDT Mickey Smith MD ECG ORDERABLES Performing Organization Address City/State/ZIP Code Phon e Number RADIOLOGY RESULTS EKG 12-lead, tracing only (05/08/2017 9:00 PM CDT) [facility] Method Time Signature Interpretation ECG Click View RADIOLOGY Image link RESULTS to view waveform and result Specimen (Source) Anatomical Collection Method Collection Time Re ceived Time Location / / Volume Laterality 05/08/2017 9:00 PM CDT Stephany Farley MD ECG ORDERABLES Performing Organization Address City/State/ZIP Code Phon e Number RADIOLOGY RESULTS Lactic acid level STAT (05/08/2017 8:45 PM CDT) athologist Signature Lactic Acid 1.3 0.7 - 2.1 [place] mmol/L [facility] Specimen Anatomical Collection Method Collection Time Receive d Time (Source) Location / / Volume Laterality Blood specimen 05/08/2017 8:45 PM 017 8:58 (specimen) CDT PM CDT Stephany Farley MD LAB - BLOOD ORDERABLES Performing Organization Address City/State/ZIP Code Phon e Number [facility] [address] [place] [address] [facility] [address] [place] [address], [place] [phone] (ABNORMAL) N-terminal Pro BNP Inpatient (AM Draw) (05/08/2017 5:00 AM CDT) Analysis Performed At Patho logist Time Signature N-Terminal Pro 2,947 (H) 0 - 900 [place] BNP Inpatient pg/mL [facility] Comment: Reference range shown and results flagge d as abnormal are suggested inpatient cut points for confirming diagnosis if CHF in an acute setting. Establishing a baseline value for each individual angela ent is useful for follow-up. An inpatient or emergency department NT-pr oPBNP <300 pg/mL effectively rules out acute CHF, with 99% negative predictive value. The outpatient non-acute reference range for ruling out CHF is: 0-125 pg/mL (age 18 to less than 75) 0-450 pg/mL (age 75 yrs and older) Specimen Anatomical Collection Method Collection Time Receive d Time (Source) Location / / Volume Laterality Blood specimen 05/08/2017 5:00 AM 017 5:06 (specimen) CDT AM CDT Stephany Farley MD LAB - BLOOD ORDERABLES Performing Organization Address City/State/ZIP Code Phon e Number [facility] [address] [address] [facility] [address] [place] [address], [place] [phone] (ABNORMAL) CBC with platelets differential (05/08/2017 5:00 AM CDT) [facility] Method Time Signature WBC 12.7 (H) 4.0 - [place] 11.0 [facility] 10e9/L [facility] RBC Count 4.00 (L) 4.4 - 5.9 [place] 10e12/L [facility] Hemoglobin 13.0 (L) 13.3 - [place] 17.7 g/dL [facility] Hematocrit 38.3 (L) 40.0 - [place] 53.0 % [facility] MCV 96 78 - [address] [place] [address] [facility] MCH 32.5 26.5 - [place] 33.[address] [facility] MCHC 33.9 31.5 - [place] 36.5 g/dL [facility] RDW 13.1 10.0 - [place] 15.0 % [facility] Platelet Count 162 150 - 450 [place] 10e9/L [facility] Diff Method Automated [place] Method [facility] % Neutrophils 82.5 % [facility] % Lymphocytes 8.9 % [facility] % Monocytes 6.9 % [facility] % Eosinophils 1.2 % [facility] % Basophils 0.1 % [facility] % Immature 0.4 % [place] Granulocytes [facility] Nucleated RBCs 0 0 /100 [facility] Absolute 10.5 (H) 1.6 - 8.3 [place] Neutrophil 10e9/L [facility] Absolute 1.1 0.8 - 5.3 [place] Lymphocytes 10e9/L [facility] Absolute 0.9 0.0 - 1.3 [place] Monocytes 10e9/L [facility] Absolute 0.2 0.0 - 0.7 [place] Eosinophils 10e9/L [facility] Absolute 0.0 0.0 - 0.2 [place] Basophils 10e9/L [facility] Abs Immature 0.1 0 - 0.4 [place] Granulocytes 10e9/L [facility] Absolute 0.[address] [place] [address] [facility] Specimen Anatomical Collection Method Collection Time Receive d Time (Source) Location / / Volume Laterality Blood specimen 05/08/2017 5:00 AM 017 5:06 (specimen) CDT AM CDT Stephany Farley MD LAB - BLOOD ORDERABLES Performing Organization Address City/State/ZIP Code Phon e Number [facility] [address] [phone] [facility] [address] [address], [facility] [phone] (ABNORMAL) Basic metabolic panel (05/08/2017 5:00 AM CDT) athologist Signature Sodium 140 133 - 144 [place] mmol/L [facility] Potassium 4.1 3.4 - 5.3 [place] mmol/L [facility] Chloride 109 94 - 109 [place] mmol/L [facility] Carbon Dioxide 20 20 - 32 [place] mmol/L [facility] Anion Gap 11 3 - 14 [place] mmol/L [facility] Glucose 106 (H) 70 - 99 [place] mg/dL [facility] Urea Nitrogen 19 7 - 30 [place] mg/dL [facility] Creatinine 1.24 0.66 - [place] 1.25 mg/dL [facility] GFR Estimate 57 (L) >60 [place] mL/min/1.[address] Comment: Non GFR Calc GFR Estimate If Black 69 >60 mL/min/1.7m2 F [facility] Comment: GFR Calc Calcium 8.8 8.5 - 10.1 mg/dL [facility] Specimen Anatomical Collection Method Collection Time Receive d Time (Source) Location / / Volume Laterality Blood specimen 05/08/2017 5:00 AM 017 5:06 (specimen) CDT AM CDT Stephany Farley MD LAB - BLOOD ORDERABLES Performing Organization Address City/State/ZIP Code Phon e Number [facility] [address] [address] [facility] [address] [address], [place] [phone] CT Head w/o Contrast (05/07/2017 5:04 PM CDT) Anatomical Region Laterality Modality Head, SUBRAD CT NEURO, SUBRAD CT NEURO, UMP CT NEURO Computed Tomography Specimen (Source) Anatomical Location Collection Method / Collectio n Time Received Time / Laterality Volume Impressions 05/07/2017 9:46 PM CDT IMPRESSION: 1. No evidence of acute intracranial hem orrhage, mass, or herniation. 2. There is generalized atrophy of the b rain. White matter changes are present in the cerebral hemispheres that are consistent with small vessel ischemic disease in this age angela ent. KATIA DAVID MD Narrative 05/07/2017 9:[address] SCAN OF THE HEAD WITHOUT CONTRAST ?? 05/07/2017 5:04 PM HISTORY: Severe headache, hypertension. No focal deficits, encephalopathy recovering from hypoxic e vent. TECHNIQUE: ??Axial images of the head an d coronal reformations without IV contrast material. Radiation dose for this scan was reduced using automated exposure control, adjustment o f the mA and/or kV according to patient size, or iterative reconstruc tion technique. COMPARISON: None. FINDINGS: There is no evidence of intrac ranial hemorrhage, mass, acute infarct or anomaly. There is generalized atrophy of the brain. There is low attenuation in the white matter o f the cerebral hemispheres consistent with sequelae of small vessel ischemic disease. The visualized portions of the sinuses a nd mastoids appear normal. There is no evidence of trauma. Procedure Note Katia David MD - 05/07/2017 CT SCAN OF THE HEAD WITHOUT CONTRAST 04/19 5:04 PM HISTORY: Severe headache, hypertension. No focal deficits, encephalopathy recovering from hypoxic e vent. TECHNIQUE: Axial images of the head and coronal reformations without IV contrast material. Radiation dose for this scan was reduced using automated exposure control, adjustment o f the mA and/or kV according to patient size, or iterative reconstruc tion technique. COMPARISON: None. FINDINGS: There is no evidence of intrac ranial hemorrhage, mass, acute infarct or anomaly. There is generalized atrophy of the brain. There is low attenuation in the white matter o f the cerebral hemispheres consistent with sequelae of small vessel ischemic disease. The visualized portions of the sinuses a nd mastoids appear normal. There is no evidence of trauma. IMPRESSION: 1. No evidence of acute intracranial hem orrhage, mass, or herniation. 2. There is generalized atrophy of the b rain. White matter changes are present in the cerebral hemispheres that are consistent with small vessel ischemic disease in this age angela ent. KATIA DAVID MD Stephany Farley MD IMG CT ORDERABLES (ABNORMAL) Glucose by meter (05/07/2017 4:19 PM CDT) P athologist Signature Glucose 108 (H) 70 - 99 POINT OF CARE mg/dL TEST, GLUCOSE Specimen Anatomical Collection Method Collection Time Receive d Time (Source) Location / / Volume Laterality 05/07/2017 4:19 PM 7 4:25 CDT PM CDT [place] [facility] POCT Performing Organization Address City/State/ZIP Code Phon e Number [facility] POINT OF CARE TEST, GLUCOSE POINT OF CARE TEST, GLUCOSE ECHO COMPLETE WITH OPTISON (05/07/2017 11:36 AM CDT) Anatomical Region Laterality Modality Echocardiography Specimen (Source) Anatomical Collection Method Collection Time Re ceived Time Location / / Volume Laterality 05/07/2017 10:53 AM CDT Narrative 05/07/2017 1:17 PM T [id number] [id number]^RUSTY^KAMARI^ [facility] Echocardiography Laboratory [address] [place] [address], [place] [address] Name: SPEEDY MCDUFFIE : 1940 Study Date: 05/07/2017 10:53 AM Age: 76 yrs Gender: Male Patient Location: [facility] Reason For Study: Afib Ordering Physician: TWAN JONES Referring Physician: Celina Coley Performed By: Connie Nolasco RDCS BSA: 2.1 m2 Height: 67 in Weight: 214 lb HR: 100 BP: 149/103 mmHg __ Procedure Complete Portable Echo Adult. Contrast O ptison. __ Interpretation Summary The visual ejection fraction is estimate d at 55-60%. Normal left ventricular wall motion The right ventricle is normal in size an d function. The left atrium is borderline dilated. The ascending aorta is Borderline dilate d. There is no pericardial effusion. The rhythm was sinus tachycardia. No hemodynamically significant valvular abnormalities on 2D or color flow imaging. __ Left Ventricle The left ventricle is normal in size. Th ere is normal left ventricular wall thickness. The visual ejection fraction is estimated at 55-60%. Left ventricular diastolic function is indete rminate. E by E prime ratio is between 8 and 15, which is indeterminate for ass essment of left ventricular filling pressures. Normal left ventricular wall motion. Right Ventricle The right ventricle is normal in size an d function. Atria The left atrium is borderline dilated. R ight atrial size is normal. There is no color Doppler evidence of an atrial s cerda. Mitral Valve Grossly normal. There is trace mitral re gurgitation. Tricuspid Valve The tricuspid valve is not well visualiz ed, but is grossly normal. Normal IVC (1.5-2.5cm) with >50% respiratory collap se; right atrial pressure is estimated at 5-10mmHg. There is physiologic tricus pid regurgitation. The right ventricular systolic pressure is approxi mated at 13.3 mmHg plus the right atrial pressure. Right ventricle systoli c pressure estimate normal. Aortic Valve The aortic valve is normal in structure and function. Pulmonic Valve The pulmonic valve is not well visualize d. Vessels The aortic root is normal size. The asce nding aorta is Borderline dilated. The IVC is normal in size and reactivity wit h respiration, suggesting normal central venous pressure. Pericardium There is no pericardial effusion. Rhythm The rhythm was sinus tachycardia. __ MMode/2D Measurements & Calculations IVSd: 1.1 cm LVIDd: 5.1 cm LVIDs: 3.1 cm LVPWd: 0.98 cm FS: 39.5 % EDV(Teich): 125.1 ml ESV(Teich): 37.9 ml LV mass(C)d: 198.1 grams LV mass(C)dI: 95.2 grams/m2 Ao root diam: 3.4 cm LA dimension: 3.2 cm asc Aorta Diam: 3.6 cm LA/Ao: 0.94 LA Volume (BP): 67.0 ml LA Volume Index (BP): 32.2 ml/m2 Doppler Measurements & Calculations MV E max xenia: 93.6 cm/sec MV A max xenia: 103.8 cm/sec MV E/A: 0.90 MV dec time: 0.20 sec TR max xenia: 182.3 cm/sec TR max P.3 mmHg Lateral E/e': 8.7 __ Report approved by: Jayshree Betancur 0 05/07/2017 01:17 PM Procedure Note Bishop Miguel MD - 05/07/2017Fo rmatting of this note might be different from the original. [id number]^RUSTY^KAMARI^ [facility] Echocardiography Laboratory [address] [place] [id number] Name: SPEEDY MCDUFFIE : 1940 Study Date: 05/07/2017 10:53 AM Age: 76 yrs Gender: Male Patient Location: [facility] Reason For Study: Afib Ordering Physician: TWAN JONES Referring Physician: Celina Coley Performed By: Connie Nolasco RDCS BSA: 2.1 m2 Height: 67 in Weight: 214 lb HR: 100 BP: 149/103 mmHg __ Procedure Complete Portable Echo Adult. Contrast O ptison. __ Interpretation Summary The visual ejection fraction is estimate d at 55-60%. Normal left ventricular wall motion The right ventricle is normal in size an d function. The left atrium is borderline dilated. The ascending aorta is Borderline dilate d. There is no pericardial effusion. The rhythm was sinus tachycardia. No hemodynamically significant valvular abnormalities on 2D or color flow imaging. __ Left Ventricle The left ventricle is normal in size. Th ere is normal left ventricular wall thickness. The visual ejection fraction is estimated at 55-60%. Left ventricular diastolic function is indete rminate. E by E prime ratio is between 8 and 15, which is indeterminate for ass essment of left ventricular filling pressures. Normal left ventricular wall motion. Right Ventricle The right ventricle is normal in size an d function. Atria The left atrium is borderline dilated. R ight atrial size is normal. There is no color Doppler evidence of an atrial s cerda. Mitral Valve Grossly normal. There is trace mitral re gurgitation. Tricuspid Valve The tricuspid valve is not well visualiz ed, but is grossly normal. Normal IVC (1.5-2.5cm) with >50% respiratory collap se; right atrial pressure is estimated at 5-10mmHg. There is physiologic tricus pid regurgitation. The right ventricular systolic pressure is approxi mated at 13.3 mmHg plus the right atrial pressure. Right ventricle systoli c pressure estimate normal. Aortic Valve The aortic valve is normal in structure and function. Pulmonic Valve The pulmonic valve is not well visualize d. Vessels The aortic root is normal size. The asce nding aorta is Borderline dilated. The IVC is normal in size and reactivity wit h respiration, suggesting normal central venous pressure. Pericardium There is no pericardial effusion. Rhythm The rhythm was sinus tachycardia. __ MMode/2D Measurements & Calculations IVSd: 1.1 cm LVIDd: 5.1 cm LVIDs: 3.1 cm LVPWd: 0.98 cm FS: 39.5 % EDV(Teich): 125.1 ml ESV(Teich): 37.9 ml LV mass(C)d: 198.1 grams LV mass(C)dI: 95.2 grams/m2 Ao root diam: 3.4 cm LA dimension: 3.2 cm asc Aorta Diam: 3.6 cm LA/Ao: 0.94 LA Volume (BP): 67.0 ml LA Volume Index (BP): 32.2 ml/m2 Doppler Measurements & Calculations MV E max xenia: 93.6 cm/sec MV A max xenia: 103.8 cm/sec MV E/A: 0.90 MV dec time: 0.20 sec TR max xenia: 182.3 cm/sec TR max P.3 mmHg Lateral E/e': 8.7 __ Report approved by: Bishop Miguel MDon 0 05/07/2017 01:17 PM Kamari Jones PA-C CV ECHO ORDERABLES XR Chest Port 1 View (05/07/2017 5:07 AM CDT) Anatomical Region Laterality Modality Chest Digital Radiography Specimen (Source) Anatomical Location Collection Method / Collectio n Time Received Time / Laterality Volume Impressions 05/07/2017 3:13 PM CDT IMPRESSION: Bilateral patchy pulmonary infiltrates, mostly interstitial in appearance. Patchy alveo lar infiltrate in the right upper lobe is unchanged. Borderline card iomegaly is unchanged. Pleural thickening laterally on the left, unchan ged. Previous anterior cervical spinal fusion. Despite the hist ory, no endotracheal tube is seen. MOLLY GARCIA MD Narrative 05/07/2017 3:13 PM CDT CHEST ONE VIEW PORTABLE ?? 05/07/2017 5:07 AM HISTORY: ??Intubated and ventilated. COMPARISON: 05/05/2017. Procedure Note Molly Garcia MD - 05/07/2017Formatt ing of this note might be different from the original. CHEST ONE VIEW PORTABLE 05/07/2017 5:07 A M HISTORY: Intubated and ventilated. COMPARISON: 05/05/2017. IMPRESSION: Bilateral patchy pulmonary i nfiltrates, mostly interstitial in appearance. Patchy alveo lar infiltrate in the right upper lobe is unchanged. Borderline card iomegaly is unchanged. Pleural thickening laterally on the left, unchan ged. Previous anterior cervical spinal fusion. Despite the hist ory, no endotracheal tube is seen. MOLLY GARCIA MD Milana Rodriguez MD IMG DIAGNOSTIC IMAGING ORDER [place] (ABNORMAL) Hepatic panel (05/07/2017 4:50 AM CDT) Analysis Performed At Patho logist Time Signature Bilirubin Direct 0.2 0.0 - 0.2 [place] mg/dL [facility] Bilirubin Total 0.5 0.2 - 1.3 [place] mg/dL [facility] Albumin 2.6 (L) 3.4 - 5.0 [place] g/dL [facility] Protein Total 6.2 (L) 6.8 - 8.8 [place] g/dL [facility] Alkaline 156 (H) 40 - 150 [place] Phosphatase U/L [facility] ALT 34 0 - 70 U/L [facility] AST 46 (H) 0 - 45 U/L [facility] Specimen Anatomical Collection Method Collection Time Receive d Time (Source) Location / / Volume Laterality Blood specimen 05/07/2017 4:50 AM 017 4:55 (specimen) CDT AM CDT Stephany Farley MD LAB - BLOOD ORDERABLES Performing Organization Address City/State/ZIP Code Phon e Number M [facility] [address] [address] [phone] [facility] [address] [address], [place] [phone] (ABNORMAL) Basic metabolic panel (05/07/2017 4:50 AM CDT) Analysis Performed At Patho logist Time Signature Sodium 143 133 - 144 [place] mmol/L [facility] Potassium 4.8 3.4 - 5.3 [place] mmol/L [facility] Chloride 114 (H) 94 - 109 [place] mmol/L [facility] Carbon Dioxide 20 20 - 32 [place] mmol/L [facility] Anion Gap 9 3 - 14 [place] mmol/L [facility] Glucose 130 (H) 70 - 99 [place] mg/dL [facility] Urea Nitrogen 25 7 - 30 [place] mg/dL [facility] Creatinine 1.52 (H) 0.66 - [place] 1.25 mg/dL [facility] GFR Estimate 45 (L) >60 [place] mL/min/1.[address] Comment: Non GFR Calc GFR Estimate If Black 54 (L) >60 mL/min/1.7m2 F [facility] Comment: GFR Calc Calcium 8.8 8.5 - 10.1 mg/dL [facility] Specimen Anatomical Collection Method Collection Time Receive d Time (Source) Location / / Volume Laterality Blood specimen 05/07/2017 4:50 AM 017 4:55 (specimen) CDT AM CDT Stephany Farley MD LAB - BLOOD ORDERABLES Performing Organization Address City/State/ZIP Code Phon e Number M [facility] [address] [address] [phone] [facility] [address] [address], [facility] [phone] Magnesium (05/07/2017 4:50 AM CDT) P athologist Signature Magnesium 2.3 1.6 - 2.3 [place] mg/dL [facility] Specimen Anatomical Collection Method Collection Time Receive d Time (Source) Location / / Volume Laterality Blood specimen 05/07/2017 4:50 AM 017 4:55 (specimen) CDT AM CDT Stephany Farley MD LAB - BLOOD ORDERABLES Performing Organization Address City/State/ZIP Code Phon e Number M [facility] [address], [place] [address] [phone] [facility] [address] [place] [address], [place] [phone] Phosphorus (05/07/2017 4:50 AM CDT) P athologist Signature Phosphorus 3.3 2.5 - 4.5 [place] mg/dL [facility] Specimen Anatomical Collection Method Collection Time Receive d Time (Source) Location / / Volume Laterality Blood specimen 05/07/2017 4:50 AM 017 4:55 (specimen) CDT AM CDT Stephany Farley MD LAB - BLOOD ORDERABLES Performing Organization Address City/State/ZIP Code Phon e Number M [facility] [address] [place] [address] [facility] [address] [place] [address], [place] [phone] (ABNORMAL) CBC with platelets differential (05/07/2017 4:50 AM CDT) Component Value Ref Test Analysis Performed At [facility] gist Range Method Time Signature WBC 11.9 (H) 4.0 - [place] 11.0 [facility] 10e9/L [facility] RBC Count 3.79 (L) 4.4 - [place] 5.9 [facility] 10e12/L [facility] Hemoglobin 12.5 (L) 13.3 - [place] 17.7 [facility] g/dL [facility] Hematocrit 37.5 (L) 40.0 - [place] 53.0 % [facility] MCV 99 78 - 100 [facility] MCH 33.0 26.5 - [place] 33.[address] [facility] MCHC 33.3 31.5 - [place] 36.5 [facility] g/dL [facility] RDW 13.5 10.0 - [place] 15.0 % [facility] Platelet Count 150 150 - [place] 450 [facility] 10e9/L [facility] Diff Method Manual [place] Differential [facility] % Neutrophils 92.0 % [facility] % Lymphocytes 3.0 % [facility] % Monocytes 5.0 % [facility] % Eosinophils 0.0 % [facility] % Basophils 0.0 % [facility] Absolute 10.9 (H) 1.6 - [place] Neutrophil 8.3 [facility] 10e9/L [facility] Absolute 0.4 (L) 0.8 - [place] Lymphocytes 5.3 [facility] 10e9/L [facility] Absolute 0.6 0.0 - [place] Monocytes 1.3 [facility] 10e9/L [facility] Absolute 0.0 0.0 - [place] Eosinophils 0.7 [facility] 10e9/L [facility] Absolute 0.0 0.0 - [place] Basophils 0.2 [facility] [address] RBC Morphology Normal [facility] Platelet Confirming [place] Estimate automated cell [facility] Specimen Anatomical Collection Method Collection Time Receive d Time (Source) Location / / Volume Laterality Blood specimen 05/07/2017 4:50 AM 017 4:55 (specimen) CDT AM CDT Stephany Farley MD LAB - BLOOD ORDERABLES Performing Organization Address City/State/ZIP Code Phon e Number M [facility] [address] [address] [facility] [address] [address], [place] [phone] Calcium (05/06/2017 5:18 PM CDT) P athologist Signature Calcium 8.6 8.5 - 10.1 [place] mg/dL [facility] Specimen Anatomical Collection Method Collection Time Receive d Time (Source) Location / / Volume Laterality Blood specimen 05/06/2017 5:18 PM 017 5:23 (specimen) CDT PM CDT Jaswinder Goins MD LAB - BLOOD ORDERABLES Performing Organization Address City/State/ZIP Code Phon e Number [facility] [address] [address] [facility] [address] [address], [place] [phone] Magnesium (1200) (05/06/2017 5:18 PM CDT) P athologist Signature Magnesium 1.9 1.6 - 2.3 [place] mg/dL [facility] Specimen Anatomical Collection Method Collection Time Receive d Time (Source) Location / / Volume Laterality Blood specimen 05/06/2017 5:18 PM 017 5:23 (specimen) CDT PM CDT Jaswinder Goins MD LAB - BLOOD ORDERABLES Performing Organization Address City/State/ZIP Code Phon e Number [facility] [address] [place] [address] [facility] [address] [place] [address], [place] [phone] EKG 12-lead, tracing only (05/06/2017 5:08 PM CDT) Patholo gist Method Time Signature Interpretation ECG Click View RADIOLOGY Image link RESULTS to view waveform and result Specimen (Source) Anatomical Collection Method Collection Time Re ceived Time Location / / Volume Laterality 05/06/2017 5:08 PM CDT Jaswinder Goins MD ECG ORDERABLES Performing Organization Address City/[facility]/ZIP Code Phon e Number RADIOLOGY RESULTS (ABNORMAL) CBC with platelets (05/06/2017 4:45 AM CDT) Analysis Performed At Patho logist Time Signature WBC 14.4 (H) 4.0 - 11.0 [place] 10e9/L [facility] RBC Count 3.85 (L) 4.4 - 5.9 [place] 10e12/L [facility] Hemoglobin 12.5 (L) 13.3 - [place] 17.7 g/dL [facility] Hematocrit 38.3 (L) 40.0 - [place] 53.0 % [facility] MCV 100 78 - [address] [place] [address] [facility] MCH 32.5 26.5 - [place] 33.[address] [facility] MCHC 32.6 31.5 - [place] 36.5 g/dL [facility] RDW 13.3 10.0 - [place] 15.0 % [facility] Platelet Count 135 (L) 150 - 450 [place] 10e9/L [facility] Specimen Anatomical Collection Method Collection Time Receive d Time (Source) Location / / Volume Laterality Blood specimen 05/06/2017 4:45 AM 017 4:54 (specimen) CDT AM CDT Miladys Mccullough MD LAB - BLOOD ORDERABLES Performing Organization Address City/[facility]/ZIP Code Phon e Number [facility] [address] [place] [address] [facility] [address] [place] [address], [place] [phone] (ABNORMAL) Hepatic panel (05/06/2017 4:45 AM CDT) Analysis Performed At Patho logist Time Signature Bilirubin Direct 0.2 0.0 - 0.2 [place] mg/dL [facility] Bilirubin Total 0.6 0.2 - 1.3 [place] mg/dL [facility] Albumin 2.6 (L) 3.4 - 5.0 [place] g/dL [facility] Protein Total 6.0 (L) 6.8 - 8.8 [place] g/dL [facility] Alkaline 144 40 - 150 [place] Phosphatase U/L [facility] ALT 33 0 - 70 U/L [facility] AST 57 (H) 0 - 45 U/L [facility] Specimen Anatomical Collection Method Collection Time Receive d Time (Source) Location / / Volume Laterality Blood specimen 05/06/2017 4:45 AM 017 4:54 (specimen) CDT AM CDT Miladys Mccullough MD LAB - BLOOD ORDERABLES Performing Organization Address City/State/ZIP Code Phon e Number [facility] [address] [place] [address] [facility] [address] [place] [address], [place] [phone] (ABNORMAL) Basic metabolic panel (05/06/2017 4:45 AM CDT) Analysis Performed At Patho logist Time Signature Sodium 143 133 - 144 [place] mmol/L [facility] Potassium 4.5 3.4 - 5.3 [place] mmol/L [facility] Chloride 115 (H) 94 - 109 [place] mmol/L [facility] Carbon Dioxide 20 20 - 32 [place] mmol/L [facility] Anion Gap 8 3 - 14 [place] mmol/L [facility] Glucose 129 (H) 70 - 99 [place] mg/dL [facility] Urea Nitrogen 39 (H) 7 - 30 [place] mg/dL [facility] Creatinine 1.79 (H) 0.66 - [place] 1.25 mg/dL [facility] GFR Estimate 37 (L) >60 [place] mL/min/1.[address] Comment: Non GFR Calc GFR Estimate If Black 45 (L) >60 mL/min/1.7m2 F [facility] Comment: GFR Calc Calcium 7.8 (L) 8.5 - 10.1 mg/dL [facility] Specimen Anatomical Collection Method Collection Time Receive d Time (Source) Location / / Volume Laterality Blood specimen 05/06/2017 4:45 AM 017 4:54 (specimen) CDT AM CDT Miladys Mccullough MD LAB - BLOOD ORDERABLES Performing Organization Address City/State/ZIP Code Phon e Number M [facility] [address] [address] [facility] [address] [address], [facility] [phone] (ABNORMAL) Glucose by meter (05/06/2017 4:17 AM CDT) P athologist Signature Glucose 119 (H) 70 - 99 [facility]ARE mg/dL TEST, GLUCOSE Specimen Anatomical Collection Method Collection Time Receive d Time (Source) Location / / Volume Laterality 05/06/2017 4:17 AM 7 4:20 CDT AM CDT Miladys Mccullough MD LAB - BEAKER POCT Performing Organization Address City/State/ZIP Code Phon e Number [facility] POINT OF CARE TEST, GLUCOSE POINT OF CARE TEST, GLUCOSE (ABNORMAL) Glucose by meter (05/05/2017 11:41 PM CDT) P athologist Signature Glucose 122 (H) 70 - 99 [facility] mg/dL TEST, GLUCOSE Specimen Anatomical Collection Method Collection Time Receive d Time (Source) Location / / Volume Laterality 05/05/2017 11:41 05/05/2017 PM CDT 11:45 PM CDT Miladys Mccullough MD LAB - BEAKER POCT Performing Organization Address City/State/ZIP Code Phon e Number [facility] POINT OF CARE TEST, GLUCOSE POINT OF CARE TEST, GLUCOSE (ABNORMAL) Basic metabolic panel (05/05/2017 10:35 PM CDT) Analysis Performed At Patho logist Time Signature Sodium 144 133 - 144 [place] mmol/L [facility] Potassium 5.0 3.4 - 5.3 [place] mmol/L [facility] Chloride 113 (H) 94 - 109 [place] mmol/L [facility] Carbon Dioxide 21 20 - 32 [place] mmol/L [facility] Anion Gap 10 3 - 14 [place] mmol/L [facility] Glucose 148 (H) 70 - 99 [place] mg/dL [facility] Urea Nitrogen 46 (H) 7 - 30 [place] mg/dL [facility] Creatinine 1.95 (H) 0.66 - [place] 1.25 mg/dL [facility] GFR Estimate 34 (L) >60 [place] mL/min/1.[address] Comment: Non GFR Calc GFR Estimate If Black 41 (L) >60 mL/min/1.7m2 F [facility] Comment: GFR Calc Calcium 7.8 (L) 8.5 - 10.1 mg/dL [facility] Specimen Anatomical Collection Method Collection Time Receive d Time (Source) Location / / Volume Laterality Blood specimen 05/05/2017 10:35 7 (specimen) PM CDT 10:46 PM CDT Miladys Mccullough MD LAB - BLOOD ORDERABLES Performing Organization Address City/State/ZIP Code Phon e Number M [facility] [address] [address] [facility] [address] [address], [place] [phone] (ABNORMAL) Blood gas arterial with oxyhemoglobin (1200) (05/05/2017 8:20 PM CDT) Patholo gist Method Time Signature pH Arterial 7.23 (L) 7.35 - [place] 7.[address] [facility] pCO2 Arterial 45 35 - [address] [place] [address] [facility] pO2 Arterial 159 (H) 80 - [address] [place] [address] [facility] Bicarbonate 19 (L) 21 - 28 [place] Arterial mmol/L [facility] FIO2 BIPAP [place] 60 [facility] Oxyhemoglobin 99 92 - 100 [place] Arterial % [facility] Base Deficit Art 8.2 mmol/L [facility] Comment: Reference range: -9.0 to 1.8 Specimen Anatomical Collection Method Collection Time Receive d Time (Source) Location / / Volume Laterality Blood specimen 05/05/2017 8:20 PM 017 8:25 (specimen) CDT PM CDT Aubrey Irvin MD LAB - BLOOD ORDERABLES Performing Organization Address City/State/ZIP Code Phon e Number M [facility] [address] [place] [address] [phone] [facility] [address] [place] [address], [facility] [phone] (ABNORMAL) Glucose by meter (05/05/2017 8:06 PM CDT) P athologist Signature Glucose 135 (H) 70 - 99 [facility] mg/dL TEST, GLUCOSE Specimen Anatomical Collection Method Collection Time Receive d Time (Source) Location / / Volume Laterality 05/05/2017 8:06 PM 7 8:10 CDT PM CDT Miladys Mccullough MD LAB - BEAKER POCT Performing Organization Address City/State/ZIP Code Phon e Number [facility] POINT OF CARE TEST, GLUCOSE POINT OF CARE TEST, GLUCOSE Glucose by meter (05/05/2017 5:35 PM CDT) P athologist Signature Glucose 92 70 - 99 PO[facility] CARE mg/dL TEST, GLUCOSE Specimen Anatomical Collection Method Collection Time Receive d Time (Source) Location / / Volume Laterality 05/05/2017 5:35 PM 7 5:41 CDT PM CDT Miladys Mccullough MD LAB - BEAKER POCT Performing Organization Address City/State/ZIP Code Phon e Number [facility] POINT OF CARE TEST, GLUCOSE POINT OF CARE TEST, GLUCOSE (ABNORMAL) ISTAT gases arterial POCT (05/05/2017 5:27 PM CDT) Patholo gist Method Time Signature pH Arterial 7.22 (L) 7.35 - POINT OF CARE 7.45 pH TEST, HANDHELD METER pCO2 Arterial 43 35 - 45 mm POINT OF CARE Hg TEST, HANDHELD METER pO2 Arterial 198 (H) 80 - 105 POINT OF CARE mm Hg TEST, HANDHELD METER Bicarbonate 18 (L) 21 - 28 POINT OF CARE Arterial mmol/L TEST, HANDHELD METER O2 Sat Arterial 99 92 - 100 % POINT OF CARE TEST, HANDHELD METER Specimen Anatomical Collection Method Collection Time Receive d Time (Source) Location / / Volume Laterality 05/05/2017 5:27 PM 7 5:31 CDT PM CDT Miladys Mccullough MD LAB - Push IO POCT Performing Organization Address City/State/ZIP Code Phon e Number [facility] POINT OF CARE TEST, HANDHELD METER POINT OF CARE TEST, HANDHELD METER (ABNORMAL) Drug abuse screen 77 urine (FL, RH, SH) (05/05/2017 5:20 PM CDT) Component Value Ref Test Analysis Performed Pathologis t Range Method Time At Signature Amphetamine Qual Negative NEG [place] Urine Cutoff for a negative amphetamine is 500 ng/mL or less. [facility] Barbiturates Qual Negative NEG [facility] Urine Cutoff for a negative barbiturate is 200 ng/mL or less. [facility] Benzodiazepine Negative NEG [facility] Qual Urine Cutoff for a negative benzodiazepine is 200 ng/mL or less . [facility] Cannabinoids Qual Negative NEG [facility] Urine Cutoff for a negative cannabinoid is 50 ng/mL or less. [facility] Cocaine Qual Negative NEG [facility] Urine Cutoff for a negative cocaine is 300 ng/mL or less. [facility] Opiates Positive NEG [facility] Qualitative Urine Cutoff for a positive opiat e is greater than 300 ng/mL. This is an unconfirmed [facility] screening result to be used for medical purposes only. HOSPITAL (A) PCP Qual Urine Negative NEG [facility] Cutoff for a negative PCP is 25 ng/mL or less. [facility] Specimen Anatomical Collection Method Collection Time Receive d Time (Source) Location / / Volume Laterality 05/05/2017 5:20 PM 7 7:11 CDT PM CDT Miladys Mccullough MD LAB - URINE ORDERABLES Performing Organization Address City/State/ZIP Code Phon e Number M [facility] [address] [place] [address] [facility] [address] [place] [address], [place] [phone] (ABNORMAL) Urine Microscopic (05/05/2017 5:20 PM CDT) [facility] [employer] Method Time Signature WBC Urine O - 2 0 - 2 [place] /HPF [facility] RBC Urine O - 2 0 - 2 [place] /HPF [facility] Cast Urine 2-5 0 - 2 [place] HYALINE /LPF [facility] Bacteria Urine Few (A) NEG /HPF [facility] Mucous Urine Present (A) NEG /LPF [facility] Specimen Anatomical Collection Method Collection Time Receive d Time (Source) Location / / Volume Laterality 05/05/2017 5:20 PM 7 5:29 CDT PM CDT Miladys Mccullough MD LAB - URINE ORDERABLES Performing Organization Address City/State/ZIP Code Phon e Number [facility] [address], [place] [address] (ABNORMAL) UA reflex to Microscopic and Culture (05/05/2017 5:20 PM CDT) Component Value Ref Test Analysis Performed At [facility] [employer] Range Method Time Signature Color Urine Yellow [facility] Appearance Urine Clear [facility] Glucose Urine Negative NEG [place] mg/dL [facility] Bilirubin Urine Negative NEG [facility] Ketones Urine Negative NEG [place] mg/dL [facility] Specific [place] 1.020 1.003 - [place] Urine 1.035 [facility] Blood Urine Negative NEG [facility] pH Urine 5.5 5.0 - [place] 7.0 pH [facility] [place] Protein Albumin 30 (A) NEG [place] Urine mg/dL [facility] Urobilinogen 0.2 0.2 - [place] Urine 1.0 [facility] EU/dL [place] Nitrite Urine Negative NEG [facility] [place] Leukocyte Negative NEG [place] Esterase Urine [facility] [place] Source Catheterized [place] Urine [facility] [place] Specimen Anatomical Collection Method Collection Time Receive d Time (Source) Location / / Volume Laterality 05/05/2017 5:20 PM 7 5:29 CDT PM CDT Miladys Mccullough MD LAB - URINE ORDERABLES Performing Organization Address City/[facility]/ZIP Code Phon e Number [facility] [place] [address] [place] [address] Blood culture (05/05/2017 4:30 PM CDT) [facility] gist Method Time Signature Specimen Blood Left [facility] Special Aerobic and [place] Requests anaerobic [facility] bottles [place] received Culture Micro No growth INFECTIOUS [facility] Micro Report FINAL INFECTIOUS Status 05/11/2017 [facility] Specimen Anatomical Collection Method Collection Time Receive d Time (Source) Location / / Volume Laterality Blood specimen STRUCTURE OF LEFT 05/05/2017 4:30 PM 4:40 (specimen) UPPER LIMB / CDT PM CDT Unknown Leesa Martinez MD LAB - MICRO GENERAL ORDERABL ES Performing Organization Address City/[facility]/ZIP [facility] Phon e Number INFECTIOUS DISEASES [address] [place] [address] DIAGNOSTIC LABORATORY, [address] [id number] [address] [place] [address], [facility] [phone] [place] INFECTIOUS DISEASE [address] [place] [address], [facility] DIAGNOSTIC LABORATORY Lactic acid whole blood (05/05/2017 3:50 PM CDT) P athologist Signature Lactic Acid 1.5 0.7 - 2.1 [place] mmol/L [facility] Specimen Anatomical Collection Method Collection Time Receive d Time (Source) Location / / Volume Laterality 05/05/2017 3:50 PM 7 4:06 CDT PM CDT Leesa Martinez MD LAB - BLOOD ORDERABLES Performing Organization Address City/State/ZIP Code Phon e Number [facility] [address] [phone] [facility] [address] [address], [facility] [phone] Blood culture (05/05/2017 3:45 PM CDT) [facility] gist Method Time Signature Specimen Blood Left [facility] Special Aerobic and [place] Requests anaerobic [facility] ED bottles [place] received Culture Micro No growth INFECTIOUS DISEASE DIAGNOSTIC LABORATORY Micro Report FINAL INFECTIOUS Status 05/11/2017 DISEASE DIAGNOSTIC LABORATORY Specimen Anatomical Collection Method Collection Time Receive d Time (Source) Location / / Volume Laterality Blood specimen STRUCTURE OF LEFT 05/05/2017 3:45 PM 3:58 (specimen) UPPER LIMB / CDT PM CDT Unknown Leesa Martinez MD LAB - MICRO GENERAL ORDERABL ES Performing Organization Address City/State/ZIP Code Phon e Number INFECTIOUS DISEASES [address] [place] [address] DIAGNOSTIC LABORATORY, [address] [address], [facility] [address] [address], [facility] [place] INFECTIOUS DISEASE [address] [place], [place] [address] DIAGNOSTIC LABORATORY Chest XR, 1 view PORTABLE (05/05/2017 3:40 PM CDT) Anatomical Region Laterality Modality Chest Digital Radiography Specimen (Source) Anatomical Location Collection Method / Collectio n Time Received Time / Laterality Volume Impressions 05/05/2017 3:46 PM CDT IMPRESSION: There is diffuse bilateral interstitial prominence, which could reflect mild edema or venous conge stion. In addition, there is patchy opacification of the right upper lobe, possibly focal infection or aspiration. No pleural effusions or p neumothorax appreciated. Heart size is upper limits of normal. KYA INTERIANO MD Narrative 05/05/2017 3:46 PM CDT XR CHEST PORT 1 VW 05/05/2017 3:40 PM HISTORY: Aspiration. COMPARISON: None. Procedure Note Kya Interiano MD - 05/05/2017 XR CHEST PORT 1 VW 05/05/2017 3:40 PM HISTORY: Aspiration. COMPARISON: None. IMPRESSION: There is diffuse bilateral i nterstitial prominence, which could reflect mild edema or venous conge stion. In addition, there is patchy opacification of the right upper lobe, possibly focal infection or aspiration. No pleural effusions or p neumothorax appreciated. Heart size is upper limits of normal. KYA INTERIANO MD Leesa Martinez MD IMG DIAGNOSTIC IMAGING ORDER [place] (ABNORMAL) Blood gas arterial and oxyhgb (05/05/2017 3:33 PM CDT) Patholo gist Method Time Signature pH Arterial 7.22 (L) 7.35 - [place] 7.[address] [facility] pCO2 Arterial 48 (H) 35 - [address] [place] [address] [facility] pO2 Arterial 112 (H) 80 - [address] [place] [address] [facility] Bicarbonate 20 (L) 21 - 28 [place] Arterial mmol/L [facility] Oxyhemoglobin 97 92 - 100 [place] Arterial % [facility] Base Deficit Art 7.5 mmol/L [facility] Comment: Reference range: -9.0 to 1.8 Specimen Anatomical Collection Method Collection Time Receive d Time (Source) Location / / Volume Laterality Blood specimen 05/05/2017 3:33 PM 017 3:54 (specimen) CDT PM CDT Leesa Martinez MD LAB - BLOOD ORDERABLES Performing Organization Address City/State/ZIP Code Phon e Number [facility] [address] [address] [facility] [address] [address], [place] [phone] Troponin POCT (05/05/2017 3:29 PM CDT) P athologist Signature Troponin I 0.02 0.00 - 0.10 POINT OF CARE ug/L TEST, HANDHELD METER Specimen Anatomical Collection Method Collection Time Receive d Time (Source) Location / / Volume Laterality 05/05/2017 3:29 PM 7 3:56 CDT PM CDT Leesa Martinez MD LAB - ENTER/EDIT POCT Performing Organization Address City/State/ZIP Code Phon e Number [facility] POINT OF CARE TEST, HANDHELD METER POINT OF CARE TEST, HANDHELD METER ISTAT electrolytes POCT (05/05/2017 3:27 PM CDT) P athologist Signature Sodium 140 133 - 144 POINT OF CARE mmol/L TEST, HANDHELD METER Potassium 4.5 3.4 - 5.3 POINT OF CARE mmol/L TEST, HANDHELD METER Hemoglobin 14.3 13.3 - POINT OF CARE 17.7 g/dL TEST, HANDHELD METER Hematocrit - 42 40.0 - POINT OF CARE POCT 53.0 %PCV TEST, HANDHELD METER Specimen Anatomical Collection Method Collection Time Receive d Time (Source) Location / / Volume Laterality 05/05/2017 3:27 PM 7 3:56 CDT PM CDT Leesa Martinez MD LAB - BEAKER POCT Performing Organization Address [facility] Phon e Number [facility] POINT OF CARE TEST, HANDHELD METER POINT OF CARE TEST, HANDHELD METER EKG 12 lead (05/05/2017 3:24 PM CDT) [facility] gist Method Time Signature Interpretation ECG Click View RADIOLOGY Image link RESULTS to view waveform and result Specimen (Source) Anatomical Collection Method Collection Time Re ceived Time Location / / Volume Laterality 05/05/2017 3:24 PM CDT Leesa Martinez MD ECG ORDERABLES Performing Organization Address City/[facility]/ZIP Code Phon e Number RADIOLOGY RESULTS (ABNORMAL) Glucose by meter (05/05/2017 3:23 PM CDT) P athologist Signature Glucose 116 (H) 70 - 99 POINT OF CARE mg/dL TEST, GLUCOSE Specimen Anatomical Collection Method Collection Time Receive d Time (Source) Location / / Volume Laterality 05/05/2017 3:23 PM 7 3:25 CDT PM CDT Provider Unknown LAB - BEAKER POCT Performing Organization Address City/[facility]/ZIP Code Phon e Number [facility] POINT OF CARE TEST, GLUCOSE POINT OF CARE TEST, GLUCOSE (ABNORMAL) CK total (05/05/2017 3:20 PM CDT) P athologist Signature CK Total 325 (H) 30 - 300 [place] U/L [facility] Specimen Anatomical Collection Method Collection Time Receive d Time (Source) Location / / Volume Laterality 05/05/2017 3:20 PM 7 3:31 CDT PM CDT Leesa Martinez MD LAB - BLOOD ORDERABLES Performing Organization Address City/State/ZIP Code Phon e Number [facility] [address] [place] [address] [facility] [address] [place] [address], [place] [phone] Alcohol ethyl (05/05/2017 3:20 PM CDT) P athologist Signature Ethanol g/dL <0.01 <0.01 g/dL [facility] Specimen Anatomical Collection Method Collection Time Receive d Time (Source) Location / / Volume Laterality 05/05/2017 3:20 PM 7 3:31 CDT PM CDT Leesa Martinez MD LAB - BLOOD ORDERABLES Performing Organization Address City/State/ZIP Code Phon e Number [facility] [address] [place] [address] [phone] [facility] [address] [place] [address], [place] [phone] Salicylate level (05/05/2017 3:20 PM CDT) [facility] gist Method Time Signature Salicylate <2 mg/dL [facility] Therapeutic: ?<20 [place] Anti inflammatory: ??15-30 [facility] Specimen Anatomical Collection Method Collection Time Receive d Time (Source) Location / / Volume Laterality Blood specimen 05/05/2017 3:20 PM 017 3:31 (specimen) CDT PM CDT Leesa Martinez MD LAB - BLOOD ORDERABLES Performing Organization Address City/State/ZIP Code Phon e Number [facility] [address] [place] [address] [facility] [address] [place] [address], [place] [phone] Acetaminophen level (05/05/2017 3:20 PM CDT) Component Value Ref Test Analysis Performed At Patholo gist Range Method Time Signature Acetaminophen <2 mg/L [facility] Level Therapeutic range: 10-20 mg/L [facility] Specimen Anatomical Collection Method Collection Time Receive d Time (Source) Location / / Volume Laterality Blood specimen 05/05/2017 3:20 PM 017 3:31 (specimen) CDT PM CDT Leesa Martinez MD LAB - BLOOD ORDERABLES Performing Organization Address City/State/ZIP Code Phon e Number [facility] [address] [place] [address] [facility] [address] [place] [address], [place] [phone] (ABNORMAL) Comprehensive metabolic panel (05/05/2017 3:20 PM CDT) Analysis Performed At [facility] logist Time Signature Sodium 141 133 - 144 [place] mmol/L [facility] Potassium 4.4 3.4 - 5.3 [place] mmol/L [facility] Chloride 107 94 - 109 [place] mmol/L [facility] Carbon Dioxide 23 20 - 32 [place] mmol/L [facility] Anion Gap 11 3 - 14 [place] mmol/L [facility] Glucose 126 (H) 70 - 99 [place] mg/dL [facility] Urea Nitrogen 48 (H) 7 - 30 [place] mg/dL [facility] Creatinine 2.41 (H) 0.66 - [place] 1.25 mg/dL [facility] GFR Estimate 26 (L) >60 [place] mL/min/1.[address] Comment: Non GFR Calc GFR Estimate If Black 32 (L) >60 mL/min/1.7m2 F [facility] Comment: GFR Calc Calcium 8.6 8.5 - 10.1 mg/dL [facility] Bilirubin Total 0.5 0.2 - 1.3 mg/dL [facility] Albumin 3.3 (L) 3.4 - 5.0 g/dL [facility] Protein Total 6.9 6.8 - 8.8 g/dL [facility] Alkaline Phosphatase 166 (H) 40 - 150 U/L [facility] ALT 29 0 - 70 U/L [facility] AST 22 0 - 45 U/L [facility] Specimen Anatomical Collection Method Collection Time Receive d Time (Source) Location / / Volume Laterality Blood specimen 05/05/2017 3:20 PM 017 3:31 (specimen) CDT PM CDT Leesa Martinez MD LAB - BLOOD ORDERABLES Performing Organization Address City/State/ZIP Code Phon e Number [facility] [address] [address] [facility] [address] [address], [place] [phone] (ABNORMAL) CBC with platelets differential (05/05/2017 3:20 PM CDT) [facility] gist Method Time Signature WBC 17.7 (H) 4.0 - [place] 11.0 [facility] 10e9/L [facility] RBC Count 4.32 (L) 4.4 - 5.9 [place] 10e12/L [facility] Hemoglobin 14.3 13.3 - [place] 17.7 g/dL [facility] Hematocrit 42.9 40.0 - [place] 53.0 % [facility] MCV 99 78 - 100 [facility] MCH 33.1 (H) 26.5 - [place] 33.[address] [facility] MCHC 33.3 31.5 - [place] 36.5 g/dL [facility] RDW 13.0 10.0 - [place] 15.0 % [facility] Platelet Count 170 150 - 450 [place] 10e9/L [facility] Diff Method Automated [facility] % Neutrophils 83.6 % [facility] % Lymphocytes 9.3 % [facility] % Monocytes 6.0 % [facility] % Eosinophils 0.7 % [facility] % Basophils 0.1 % [facility] % Immature 0.3 % [place] Granulocytes [facility] Nucleated RBCs 0 0 /100 [facility] Absolute 14.8 (H) 1.6 - 8.3 [place] Neutrophil 10e9/L [facility] Absolute 1.7 0.8 - 5.3 [place] Lymphocytes 10e9/L [facility] Absolute 1.1 0.0 - 1.3 [place] Monocytes 10e9/L [facility] Absolute 0.1 0.0 - 0.7 [place] Eosinophils 10e9/L [facility] Absolute 0.0 0.0 - 0.2 [place] Basophils 10e9/L [facility] Abs Immature 0.1 0 - 0.4 [place] Granulocytes 10e9/L [facility] Absolute 0.[address] [place] [address] [facility] Specimen Anatomical Collection Method Collection Time Receive d Time (Source) Location / / Volume Laterality Blood specimen 05/05/2017 3:20 PM 017 3:31 (specimen) CDT PM CDT Leesa Martinez MD LAB - BLOOD ORDERABLES Performing Organization Address City/State/ZIP Code Phon e Number [facility] [address] [address] [phone] [facility] [address] [address], [facility] [phone] documented in this encounter Visit Diagnoses Diagnosis Opioid overdose, accidental or unintenti onal, initial encounter (H) - Primary Aspiration pneumonia, unspecified aspira tion pneumonia type, unspecified laterality, unspecified part of lung (H) Encephalopathy Encephalopathy, unspecified Paroxysmal atrial fibrillation (H) Atrial fibrillation Hyperlipidemia LDL goal <70 Other and unspecified hyperlipidemia Acute left-sided low back pain without s ciatica Unresponsiveness Other alteration of consciousness documented in this encounter Administered Medications Inactive Administered Medications - up to 3 most recent administrations Medication Order MAR Action Action Date Dose Rate Site 0.45% sodium chloride + Rate/Dose Verify 05/12/2017 8:00 AM CDT 100 mL/hr KCl 20 mEq/L infusion at 100 mL/hr, Intravenous, CONTINUOUS, Starting on Thu05/08/17 at 1430, Until Thu05/12/17 at 1747 New Bag 05/12/2017 4:05 AM CDT 100 mL/hr New 05/11/2017 7:50 PM CDT 100 mL/hr 0.9% sodium chloride BOLUS New 05/05/2017 3:32 PM CDT 1,000 mLs 1000 mL/hr Intravenous, 1,000 mL, ONCE, at 1,000 mL/hr, Administer over 1 Hours, On Thu05/05/17 at 1531, For 1 dose 0.9% sodium chloride BOLUS New 05/05/2017 5:08 PM CDT 1,000 mLs Intravenous, 1,000 mL, ONCE, On Thu05/05/17 at 1650, For 1 dose 0.9% sodium chloride infusion New 05/05/2017 3:57 PM CDT 1,000 mLs 125 mL/hr at 125 mL/hr, Intravenous, CONTINUOUS, Administer after the bolus., Starting on Thu05/05/17 at 1531, Until Thu05/05/17 at 1750 acetaminophen (TYLENOL) tablet 1,000 mg Given 05/12/2017 9:14 AM CDT 1,000 mg 1,000 mg, Oral, 3 TIMES DAILY, First dose on Thu05/08/17 at 1700, Maximum acetaminophen dose from all sources = 75 mg/kg/day not to exceed 4 gram Given 05/11/2017 10:16 PM CDT 1,000 mg Given 05/11/2017 4:28 PM CDT 1,000 mg acetaminophen (TYLENOL) tablet 650 mg Given 05/07/2017 7:15 PM CDT 325 mg 650 mg, Oral, EVERY 4 HOURS PRN, mild pain, Starting on Thu05/05/17 at 1749, Alternate ibuprofen (if ordered) with acetaminophen. Maximum acetaminophen dose from all sources = 75 mg/kg/day not to exceed 4 grams/day. Given 05/06/2017 9:26 PM CDT 325 mg Given 05/06/2017 5:33 PM CDT 650 mg albuterol neb solution 2.5 mg 2.5 mg, Nebulization, EVERY 6 HOURS PRN, wheezing, Starting on Thu05/06/17 at 0944 amiodarone (PACERONE/CODARONE) tablet 20 0 mg 200 mg, Oral, DAILY, First dose on Thu05/17/17 at 0900 , Avoid grapefruit juice during oral amiodarone treatment. amiodarone (PACERONE/CODARONE) tablet 40 0 mg Given 05/12/2017 9:12 AM CDT 400 mg 400 mg, Oral, 2 TIMES DAILY, First dose on Thu05/09/17 at 2100, For 7 days, Avoid grapefruit juice during oral amiodarone treatment. Given 05/11/2017 8:32 PM CDT 400 mg Given 05/11/2017 9:21 AM CDT 400 mg aspirin chewable tablet 81 mg Given 05/12/2017 9:14 AM CDT 81 mg 81 mg, Oral, DAILY, First dose on Thu05/08/17 at 1215 Given 05/11/2017 9:21 AM CDT 81 mg Given 05/10/2017 8:26 AM CDT 81 mg atorvastatin (LIPITOR) tablet 40 mg Given 05/12/2017 9:13 AM CDT 40 mg 40 mg, Oral, DAILY, First dose on Thu05/08/17 at 1215 Given 05/11/2017 9:22 AM CDT 40 mg Given 05/10/2017 8:26 AM CDT 40 mg clindamycin (CLEOCIN) infusion 900 New Bag 05/09/2017 10:23 AM CDT 900 mg 50 mL/hr mg STAT, 900 mg, Intravenous, EVERY 8 HOURS, First dose on Thu05/05/17 at 1815, Indications: Aspiration Pneumonia New Bag 05/09/2017 1:50 AM CDT 900 mg 50 mL/hr New Bag 05/08/2017 7:11 PM CDT 900 mg 50 mL/hr dextrose 5% and 0.45% NaCl Rate/Dose Change 05/07/2017 2:20 AM CDT 10 mL/hr infusion at 125 mL/hr, Intravenous, CONTINUOUS, Starting on Thu05/06/17 at 1000, Until Thu05/07/17 at 0206 New Bag 05/06/2017 11:23 PM CDT 125 mL/hr Restarted 05/06/2017 6:00 PM CDT 125 mL/hr dextrose 5% and 0.45% NaCl infusion New Bag 05/08/2017 7:53 AM CDT 10 mL/hr at 10 mL/hr, Intravenous, CONTINUOUS, Starting on Thu05/07/17 at 0915, Until Thu05/08/17 at 1206 Rate/Dose Verify 05/07/2017 9:08 AM CDT 10 mL/hr dextrose 5% and 0.9% NaCl infusion New Bag 05/06/2017 8:54 AM CDT 125 mL/hr at 125 mL/hr, Intravenous, CONTINUOUS, Starting on Thu05/05/17 at 1800, Until Thu05/06/17 at 0959 Rate/Dose Verify 05/06/2017 8:00 AM CDT 125 mL/hr New Bag 05/06/2017 1:06 AM CDT 125 mL/hr diclofenac (VOLTAREN) 1 % topical gel 2 g 2 g, Transdermal, 4 TIMES DAILY PRN, moderate pain, St arting on Thu05/11/17 at 1554, Apply to low back, left hip, left leg Send dosin g card with product. ertapenem (INVanz) 1 g vial to attach to NS New Bag 05/11/2017 4:3 1 PM CDT 1 g 100 mL bag Routine, 1 g, Intravenous, EVERY 24 HOURS, First dose on Thu05/09/17 at 1600, For 3 doses, Infuse over 30 minutes., Indications: Aspiration Pneumonia New Bag 05/10/2017 3:59 PM CDT 1 g New Bag 05/09/2017 4:48 PM CDT 1 g famotidine (PEPCID) injection 20 mg Given 05/07/2017 5:20 PM CDT 20 mg 20 mg, Intravenous, EVERY 24 HOURS, First dose on Thu05/05/17 at 1815, Formulary alternate for ranitidine 50mg IV q8h, Dose adjusted per renal dosing policy. Estimated CrCl = < 50 mL/min. Given 05/06/2017 7:00 PM CDT 20 mg Given 05/05/2017 7:33 PM CDT 20 mg famotidine (PEPCID) injection 20 mg Given 05/09/2017 8:44 PM CDT 20 mg 20 mg, Intravenous, 2 TIMES DAILY, First dose (after last modification) on Thu05/08/17 at 1115, Formulary alternate for ranitidine 50mg IV q8h Dose adjusted per renal dosing policy. Estimated CrCl > 50 mL/min. Given 05/09/2017 9:02 AM CDT 20 mg Given 05/08/2017 9:22 PM CDT 20 mg famotidine (PEPCID) tablet 20 mg Given 05/12/2017 9:13 AM CDT 20 mg 20 mg, Oral, DAILY, First dose on Thu05/11/17 at 0900, IV to PO per pharmacy policy Given 05/11/2017 1:35 PM CDT 20 mg gabapentin (NEURONTIN) capsule 300 mg Given 05/12/2017 9:11 AM CDT 300 mg 300 mg, Oral, 3 TIMES DAILY, First dose on Thu05/06/17 at 2200 Given 05/11/2017 10:16 PM CDT 300 mg Given 05/11/2017 4:28 PM CDT 300 mg gadobutrol (GADAVIST) injection 10 mL Given 05/09/2017 1:35 PM CDT 10 mLs 10 mL, Intravenous, ONCE, On Thu05/09/17 at 1345, For 1 dose, Supplied by, and administered by MRI. guaiFENesin (MUCINEX) 12 hr tablet 600 m g Given 05/08/2017 8:04 AM CDT 600 mg 600 mg, Oral, 2 TIMES DAILY, First dose on Thu05/06/17 at 2100, DO NOT CRUSH. Given 05/07/2017 10:03 PM CDT 600 mg Given 05/07/2017 9:51 AM CDT 600 mg heparin sodium PF injection 5,000 Units Given 05/12/2017 9:14 AM CDT 5,000 Units 5,000 Units, Subcutaneous, EVERY 12 HOURS, First dose on Thu05/05/17 at 2100, HOLD heparin IF platelet count falls below 50% baseline or less than 100,000 / ??L and notify provider. Use this product If CrCl less than 30 mL/min. Given 05/11/2017 8:32 PM CDT 5,000 Units Given 05/11/2017 9:31 AM CDT 5,000 Units hydrALAZINE (APRESOLINE) injection 10-20 mg Given 05/08/2017 10:29 AM CDT 20 mg 10-20 mg, Intravenous, EVERY 6 HOURS PRN, high blood pressure, Starting on Thu05/07/17 at 0333 Given 05/08/2017 4:08 AM CDT 20 mg Given 05/07/2017 5:28 PM CDT 20 mg hydrALAZINE (APRESOLINE) tablet 25 mg Given 05/12/2017 5:59 AM CDT 25 mg 25 mg, Oral, EVERY 8 HOURS SCHEDULED, First dose on Thu05/07/17 at 1415 Given 05/11/2017 10:16 PM CDT 25 mg Given 05/11/2017 1:35 PM CDT 25 mg hydrochlorothiazide (HYDRODIURIL) tablet 25 Given 05/08/2017 11:41 AM CDT 25 mg mg 25 mg, Oral, ONCE, On Thu05/08/17 at 1030, For 1 dose HYDROcodone-acetaminophen (NORCO) 5-325 MG Given 05/08 4:16 PM CDT 1 tablet per tablet 1 tablet 1 tablet, Oral, EVERY 4 HOURS PRN, moderate to severe pain, Starting on Thu05/06/17 at 2019, Maximum acetaminophen dose from all sources= 75 mg/kg/day not to exceed 4 grams Given 05/08/2017 12:19 PM CDT 1 tablet Given 05/08/2017 8:03 AM CDT 1 tablet ipratropium - albuterol 0.5 mg/2.5 mg/3 mL Given 05/05/2017 3:42 PM CDT 3 mLs (DUONEB) 0.5-2.5 (3) MG/3ML neb solution Starting on Thu05/05/17 at 1545, For 1 dose, Demar Berumen: albaro override ipratropium - albuterol 0.5 mg/2.5 mg/3 mL Given 05/07/2017 2:06 AM CDT 3 mLs (DUONEB) neb solution 3 mL 3 mL, Nebulization, EVERY 4 HOURS PRN, wheezing, Starting on Thu05/06/17 at 1451 Given 05/06/2017 8:04 PM CDT 3 mLs Given 05/06/2017 4:12 PM CDT 3 mLs isosorbide mononitrate (IMDUR) 24 hr tablet 30 Given 0 05/10/2017 8:26 AM CDT 30 mg mg 30 mg, Oral, DAILY, First dose on Thu05/07/17 at 1415, DO NOT CRUSH. Can split tablet in half along score donnie. Given 05/09/2017 9:03 AM CDT 30 mg Given 05/08/2017 8:05 AM CDT 30 mg isosorbide mononitrate (IMDUR) 24 hr tablet 60 Given 0 05/12/2017 9:13 AM CDT 60 mg mg 60 mg, Oral, DAILY, First dose (after last modification) on Thu05/11/17 at 0900, DO NOT CRUSH. Can split tablet in half along score donnie. Given 05/11/2017 9:22 AM CDT 60 mg levofloxacin (LEVAQUIN) infusion 250 New Bag 05/07/2017 5:15 P M CDT 250 mg 50 mL/hr mg Routine, 250 mg, Intravenous, EVERY 24 HOURS, First dose on Thu05/06/17 at 1700, Dose adjusted per renal dosing policy. Estimated CrCl = 20-49 mL/min. Irritant. Administer at a rate of no greater than 100 mL/hr, Indications: Aspiration Pneumonia New Bag 05/06/2017 5:27 PM CDT 250 mg 50 mL/hr levofloxacin (LEVAQUIN) infusion New Bag 05/08/2017 6:00 PM CD T 500 mg 100 mL/hr 500 mg Routine, 500 mg, Intravenous, EVERY 24 HOURS, First dose (after last modification) on Thu05/08/17 at 1700, Dose adjusted per renal dosing policy. Estimated CrCl >50 mL/min. Irritant. Administer at a rate of no greater than 100 mL/hr, Indications: Aspiration Pneumonia levofloxacin (LEVAQUIN) infusion New Bag 05/05/2017 4:44 PM CD T 750 mg 100 mL/hr 750 mg STAT, 750 mg, Intravenous, ONCE, On Thu05/05/17 at 1606, For 1 dose, FIRST DOSE STAT. Start within 4 hours of patient's arrival to hospital. Irritant. Administer at a rate of no greater than 100 mL/hr, Indications: Aspiration Pneumonia lidocaine (LIDODERM) 5 % Given 05/12/2017 10:33 AM 3 patches Other (see comments) Patch 3 patch CDT 3 patch, Transdermal, EVERY 24 HOURS 0800, First dose on Thu05/11/17 at 1600, Apply patch(s) to low back/left hip/left leg. To prevent lidocaine toxicity, patient should be patch free for 12 hrs daily. Patches may be cut to smaller size prior to removing release liner. NEVER APPLY HEAT OVER PATCH which will increase absorption and may lead to risk of local anesthetic toxicity. Do not apply over area where liposomal bupivacaine was injected for 96 hours post injection. Given 05/11/2017 4:45 PM CDT 3 patches Other (see comments) lidocaine (LIDODERM) patch in PLACE Negative 05/12/2017 8:00 AM CDT First dose on Thu05/11/17 at 1600, Chart every shift, confirming that patch is still in place on patient (no barcode scan needed). See patch order for dose information. NEVER APPLY HEAT OVER PATCH which will increase absorption and may lead to risk of local anesthetic toxicity. Do not apply over area where liposomal bupivacaine injected for 96 hours. lidocaine (LIDODERM) patch REMOVAL First dose on Thu05/11/17 at 2000, Patient should have a 12 hour patch free interval lidocaine 2 % (URO-JET) jelly 10-20 mL Given 05/11/2017 2:18 PM CDT 10 mLs 10-20 mL, Urethral, ONCE, On Thu05/11/17 at 1400, For 1 dose, Into penis for catheter insertion lidocaine 2 % (URO-JET) jelly Given 05/10/2017 5:05 PM CDT Starting on Thu05/10/17 at 1557, For 1 dose, Rosette Reese: cabinet override lidocaine 2 % (URO-JET) jelly Given 05/11/2017 5:33 AM CDT Starting on Thu05/11/17 at 0533, For 1 dose, Jumana Rodriguez: cabinet override lisinopril (PRINIVIL/ZESTRIL) tablet 10 mg Given 05/12/2017 9:14 AM CDT 10 mg 10 mg, Oral, DAILY, First dose on Thu05/08/17 at 1115, Hold for SBP < 100 Given 05/11/2017 9:21 AM CDT 10 mg Given 05/10/2017 8:26 AM CDT 10 mg LORazepam (ATIVAN) injection 1 mg Given 05/06/2017 11:51 PM CDT 1 mg 1 mg, Intravenous, ONCE, On Thu05/06/17 at 2345, For 1 dose, For IV PUSH: Dilute with equal volume of NS. magnesium sulfate 2 g in NS intermittent New Bag 05/06/2017 8:24 P M CDT 2 g infusion (PharMEDium or [facility]) 2 g, Intravenous, ONCE, On Thu05/06/17 at 1800, For 1 dose metoprolol (LOPRESSOR) injection 2.5 mg Given 05/07/2017 12:27 AM CDT 2.5 mg 2.5 mg, Intravenous, EVERY 4 HOURS PRN, high blood pressure, other, SBP>160 mmHg, HR > 120, hold for SBP < 90, Starting on Thu05/05/17 at 1835 metoprolol (LOPRESSOR) injection 2.5 mg Given 05/08/2017 9:22 PM CDT 2.5 mg 2.5 mg, Intravenous, EVERY 4 HOURS PRN, other, HR > 120, hold for SBP < 90, Starting on Thu05/08/17 at 2112 metoprolol (LOPRESSOR) injection 5 mg Given 05/09/2017 1:12 AM CDT 5 mg 5 mg, Intravenous, EVERY 4 HOURS PRN, other, HR > 120, hold for SBP < 90, Starting on Thu05/08/17 at 2344 metoprolol (LOPRESSOR) tablet 25 mg Given 05/07/2017 10:03 PM CDT 25 mg 25 mg, Oral, 2 TIMES DAILY, First dose on Thu05/07/17 at 0045 NaCl 0.9 % 500 mL with New Bag 05/11/2017 12:09 AM CDT 100 mL/hr multivitamin-ADULT (INFUVITE) 10 mL, folic acid 1 mg, thiamine 100 mg infusion 500 mL, at 100 mL/hr, Intravenous, EVERY 24 HOURS, 5 doses, First dose on Thu05/06/17 at 2345, Last dose on Thu05/10/17 at 2345, To avoid fluid overload, do not run maintenance IV during vitamin infusion. New Bag 05/10/2017 12:20 AM CDT 100 mL/hr New Bag 05/09/2017 12:29 AM CDT 100 mL/hr naloxone (NARCAN) 2.5 mg in NaCl New Bag 05/05/2017 4:37 PM CD T 0.4 mg/hr 40 mL/hr 0.9 % 250 mL infusion 0.3 mg/hr (30 mL/hr), Intravenous, CONTINUOUS, Starting on Thu05/05/17 at 1617 naloxone (NARCAN) 2.5 mg Rate/Dose Verify 05/06/2017 8:00 AM CDT 0. 2 mg/hr 20 mL/hr in NaCl 0.9 % 250 mL infusion 0.2 mg/hr (20 mL/hr), Intravenous, CONTINUOUS, Starting on Thu05/05/17 at 1800 New Bag 05/06/2017 1:33 AM CDT 0.2 mg/hr 20 mL/hr New Bag 05/05/2017 6:43 PM CDT 0.2 mg/hr 20 mL/hr naloxone (NARCAN) injection 0.4 mg Given 05/05/2017 3:32 PM CDT 0.4 mg 0.4 mg, Intravenous, ONCE, On Thu05/05/17 at 1532, For 1 dose, For respiratory rate LESS than or EQUAL to 8. Partial reversal dose: 0.1 mg titrated q 2 minutes for Analgesia Side Effects Monitoring Sedation Level of 3 (frequently drowsy, arousable, drifts to sleep during conversation).Full reversal dose: 0.4 mg bolus for Analgesia Side Effects Monitoring Sedation Level of 4 (somnolent, minimal or no response to stimulation). naloxone (NARCAN) injection 0.4 mg Given 05/05/2017 4:43 PM CDT 0.4 mg 0.4 mg, Intravenous, ONCE, On Thu05/05/17 at 1643, For 1 dose, For respiratory rate LESS than or EQUAL to 8. Partial reversal dose: 0.1 mg titrated q 2 minutes for Analgesia Side Effects Monitoring Sedation Level of 3 (frequently drowsy, arousable, drifts to sleep during conversation).Full reversal dose: 0.4 mg bolus for Analgesia Side Effects Monitoring Sedation Level of 4 (somnolent, minimal or no response to stimulation). naloxone (NARCAN) injection 0.4 mg Given 05/05/2017 5:03 PM CDT 0.4 mg 0.4 mg, Intravenous, ONCE, On Thu05/05/17 at 1703, For 1 dose, For respiratory rate LESS than or EQUAL to 8. Partial reversal dose: 0.1 mg titrated q 2 minutes for Analgesia Side Effects Monitoring Sedation Level of 3 (frequently drowsy, arousable, drifts to sleep during conversation).Full reversal dose: 0.4 mg bolus for Analgesia Side Effects Monitoring Sedation Level of 4 (somnolent, minimal or no response to stimulation). naloxone (NARCAN) injection 1 mg Given 05/05/2017 5:08 PM CDT 1 mg 1 mg, Intravenous, ONCE, On Thu05/05/17 at 1709, For 1 dose, For respiratory rate LESS than or EQUAL to 8. Partial reversal dose: 0.1 mg titrated q 2 minutes for Analgesia Side Effects Monitoring Sedation Level of 3 (frequently drowsy, arousable, drifts to sleep during conversation).Full reversal dose: 0.4 mg bolus for Analgesia Side Effects Monitoring Sedation Level of 4 (somnolent, minimal or no response to stimulation). ondansetron (ZOFRAN) injection 4 mg 4 mg, Intravenous, EVERY 6 HOURS PRN, nausea, vomiting , Administer over 2-5 Minutes, Starting on Thu05/05/17 at 1750, This is Step 1 of nausea and vomiting management. If nausea not resolved in 15 minutes, go t o Step 2 prochlorperazine (COMPAZINE). Irritant. ondansetron (ZOFRAN-ODT) ODT tab 4 mg 4 mg, Oral, EVERY 6 HOURS PRN, nausea, v omiting, Starting on Thu05/05/17 at 1750, This is Step 1 of nausea and vomiting management. If n ausea not resolved in 15 minutes, go to Step 2 prochlorperazine (COMPAZINE). Do not push through foil backing. Peel back foil and gently remove. Place on to [facility] immediately. Administration with liquid unnecessary oxyCODONE (ROXICODONE) IR half-tab 2.5 m g Given 05/09/2017 2:43 PM CDT 2.5 mg 2.5 mg, Oral, EVERY 4 HOURS PRN, moderate to severe pain, Starting on 05/08/17 at 1651 Given 05/09/2017 8:55 AM CDT 2.5 mg Given 05/08/2017 9:23 PM CDT 2.5 mg oxyCODONE (ROXICODONE) IR tablet 5 mg Given 05/12/2017 2:33 PM CDT 5 mg 5 mg, Oral, EVERY 4 HOURS PRN, moderate to severe pain, Starting on 05/09/17 at 1620 Given 05/12/2017 10:34 AM CDT 5 mg Given 05/12/2017 5:56 AM CDT 5 mg perflutren diluted 1mL to 1mL with saline Given 05/07/2017 11:38 AM CDT 2 mLs (OPTISON) diluted injection 2 mL 2 mL, Intravenous, ONCE, On Yesenia 05/07/17 at 1145, For 1 dose predniSONE (DELTASONE) tablet 10 mg Given 05/11/2017 9:22 AM CDT 10 mg 10 mg, Oral, DAILY, First dose on Thu05/08/17 at 0900 Given 05/10/2017 8:26 AM CDT 10 mg Given 05/09/2017 9:03 AM CDT 10 mg predniSONE (DELTASONE) tablet 5 mg Given 05/12/2017 9:13 AM CDT 5 mg 5 mg, Oral, DAILY, First dose (after last modification) on Thu05/12/17 at 0900, For 3 doses sodium chloride (PF) 0.9% PF flush 10 mL Given 05/07/2017 11:39 AM CDT 10 mLs 10 mL, Intravenous, ONCE, On Yesenia 05/07/17 at 1145, For 1 dose sodium chloride (PF) 0.9% PF flush 10 mL Given 05/09/2017 1:35 PM CDT 10 mLs 10 mL, Intracatheter, EVERY 8 HOURS, First dose on 05/09/17 at 1345 sodium chloride (PF) 0.9% PF flush 3 mL Given 05/09/2017 5:37 PM CDT 3 mLs 3 mL, Intracatheter, EVERY 8 HOURS, First dose on Thu05/05/17 at 1800, And Q1H PRN, to lock peripheral IV dormant line. Given 05/08/2017 1:59 AM CDT 3 mLs Given 05/07/2017 5:20 PM CDT 3 mLs terazosin (HYTRIN) capsule 5 mg Given 05/11/2017 10:16 PM CDT 5 mg 5 mg, Oral, AT BEDTIME, First dose on Thu05/08/17 at 2200 Given 05/10/2017 9:16 PM CDT 5 mg Given 05/09/2017 10:16 PM CDT 5 mg documented in this encounter Active and Recently Administered Medications Times are shown in CDT. Scheduled Medication Order 05/10/2017 05/11/2017 05/12/2017 acetaminophen (TYLENOL) tablet 1,000 mg 0825 (Given - Provider: Aubery Morales RN)8179 (Given - Provider: Rosette Reese RN)0919 (Given - Provider: Rosette Reese RN) 0921 (Given - Provider: Aubrey Morales RN)1624 (Given - Provider: Joaquina Acosta RN)2213 (Given - Provider: Joaquina Acosta RN) 0914 (Given - Provider: Torres Altamirano) 1,000 mg, Oral, 3 TIMES DAILY, First dos e on Thu05/08/17 at 1700, Maximum acetaminophen dose from all sources = 75 mg/kg/day not to exceed 4 gram amiodarone (PACERONE/CODARONE) tablet 200 mg 200 mg, Oral, DAILY, First dose on Thu at 0900, Avoid grapefruit juice during oral amiodarone treatment. amiodarone (PACERONE/CODARONE) tablet 400 mg 08 (Giv en - Provider: Aubrey Morales RN)2115 (Given - Provider: Rosette Reese RN) 09 (Given - Provider: Aubrey Morales RN)2031 (Given - Provider: Joaquina Acosta RN) 09 (Given - Provider: Torres Altamirano) 400 mg, Oral, 2 TIMES DAILY, First dose on Thu05/09/17 at 2100, For 7 days, Avoid grapefruit juice during oral amiodarone treatment. aspirin chewable tablet 81 mg 08 (Given - Provider: Aubrey Morales RN) 09 (Given - Provider: Aubrey Morales RN) 0914 (Given - Provider: Torres Altamirano) 81 mg, Oral, DAILY, First dose on Thu05/08/17 at 1215 atorvastatin (LIPITOR) tablet 40 mg 08 (Given - Prov ider: Aubrey Morales RN) 09 (Given - Provider: Aubrey Morales RN) 09 (Giv en - Provider: Torres Altamirano) 40 mg, Oral, DAILY, First dose on Thu05/08/17 at 1215 ertapenem (INVanz) 1 g vial to attach to NS 100 mL bag (COMPLETED) 1559 (New Bag - Provider: Rosette Reese RN) 1631 (New Bag - Provider: Joaquina Acosta RN) 1 g, Intravenous, EVERY 24 HOURS, First dose on Thu05/09/17 at 1600, For 3 doses, Infuse over 30 minutes., Indications: Aspiration Pneumonia famotidine (PEPCID) tablet 20 mg 1335 (Given - P rovider: Aubrey Morales RN) 0913 (Given - Provider: Torres Altamirano) 20 mg, Oral, DAILY, First dose on Thu at 0900, IV to PO per pharmacy policy gabapentin (NEURONTIN) capsule 300 mg 0826 (Given - Pr ovider: Aubrey Morales RN)1559 (Given - Provider: Rosette Reese RN)2115 (Given - Provider: Rosette Reese RN) 0922 (Given - Provider: Aubrey Morales RN)1628 (Given - Provider: Joaquina Acosta RN)221 (Given - Provider: Joaquina Acosta RN) 0911 (Given - Provider: Torres Altamirano) 300 mg, Oral, 3 TIMES DAILY, First dose on Thu05/06/17 at 2200 heparin sodium PF injection 5,000 Units 0944 (Given - Provider: Aubrey Morales RN)2115 (Given - Provider: Rosette Reese RN) 0931 (Given - Provider: Aubrey Morales RN)203 (Given - Provider: Joaquina Acosta RN) 0914 (Given - Provider: Torres Altamirano) 5,000 Units, Subcutaneous, EVERY 12 HOUR S, First dose on Thu05/05/17 at 2100, HOLD heparin IF platelet count falls below 50% baseline or less than 100,000 / ??L and notify provider. Use this product If CrCl less than 30 mL/min. hydrALAZINE (APRESOLINE) tablet 25 mg 0617 (Given - Pr ovider: Ramiro Lozano RN)1558 (Given - Provider: Rosette Reese RN)2115 (Given - Provider: Rosette Reese RN) 0536 (Given - Provider: Jumana Rodriguez, JOSE)1335 (Given - Provider: Aubrey Morales RN)221 (Given - Provider: Joaquina Acosta RN) 0559 (Given - Provider: Fela Aguillon RN)1508 (Not Given - Provider: Aubrey Morales RN - Reason: Patient/family refused) 25 mg, Oral, EVERY 8 HOURS SCHEDULED, First dose on Thu05/07/17 at 1415 isosorbide mononitrate (IMDUR) 24 hr tablet 30 mg (CAN CELED) 0826 (Given - Provider: Aubrey Morales RN) 30 mg, Oral, DAILY, First dose on Yesenia at 1415, DO NOT CRUSH. Can split tablet in half along score donnie. isosorbide mononitrate (IMDUR) 24 hr tablet 60 mg 09 (Given - Provider: Aubrey Morales RN) 0913 (Given - Provider: Torres Altamirano) 60 mg, Oral, DAILY, First dose on Thu at 0900, DO NOT CRUSH. Can split tablet in half along score donnie. lidocaine (LIDODERM) 5 % Patch 3 patch 1 645 (Given - Provider: Joaquina Acosta, JOSE - Comment: low back and L hip) 1033 (Given - Provider: Haley García RN - Comment: lower back) 3 patch, Transdermal, EVERY 24 HOURS 080 0, First dose on Thu05/11/17 at 1600, Apply patch(s) to low back/left hip/left leg. To prevent lidocaine toxicity, patient should be patch free for 12 hrs daily. Patches may be cut to smaller size prior to removing release liner. NEVER APPLY HEAT OVER PATCH which will increase absorption and may lead to risk of local anesthetic toxicity. Do not apply over area w here liposomal bupivacaine was injected for 96 hours post inject ion. lidocaine (LIDODERM) patch in PLACE 1652 (Patch in Place - Provider: Joaquina Acosta RN) 020 (Not Given - Provider: Fela mcfarland RN - Reason: Medication not available - Comment: patch taken off when K heating pack put into place earlier today)0800 (Negative - Provider: Aubrey Morales RN) First dose on Thu05/11/17 at 1600, Chart every shift, confirming that patch is still in place on patient (no barcode scan needed). See patch order for dose information. NEVER APPLY HEAT OVER PATCH which will increase absorption and may lead t o risk of local anesthetic toxicity. Do not apply over area where liposomal bupivacaine injected for 96 hours. lidocaine (LIDODERM) patch REMOVAL 2031 (Patch/Med Removed - Provider: Joaquina Acosta RN) First dose on Thu05/11/17 at 2000, Patie nt should have a 12 hour patch free interval lidocaine 2 % (URO-JET) jelly 10-20 mL (COMPLETED) 1418 (Given - Provider: Molly Brown, JOSE) 10-20 mL, Urethral, ONCE, Thu05/11/17 at 1400, For 1 dose, Into penis for catheter insertion lisinopril (PRINIVIL/ZESTRIL) tablet 10 mg 0826 (Given - Provider: Aubrey Morales RN) 0921 (Given - Provider: Aubrey Morales RN) 0914 (Giv en - Provider: Torres Altamirano) 10 mg, Oral, DAILY, First dose on Thu05/08/17 at 1115, Hold for SBP < 100 NaCl 0.9 % 500 mL with multivitamin-ADUL T (INFUVITE) 10 mL, folic acid 1 mg, thiamine 100 mg infusion (COMPLETED) 0020 (New Bag - Provider: Ramiro juarez RN) 0009 (New Bag - Provider: Jumana Rodriguez RN) 500 mL, at 100 mL/hr, Intravenous, EVERY 24 HOURS, 5 doses, First dose on Thu05/06/17 at 2345, Last dose on Thu05/10/17 at 2345, To avoid fluid overload, do not run maintenance IV during vitamin infusion. predniSONE (DELTASONE) tablet 10 mg (CANCELED) 0826 (G iven - Provider: Aubrey Morales RN) 0922 (Given - Provider: Aubrey Morales RN) 10 mg, Oral, DAILY, First dose on Thu05/08/17 at 0900 predniSONE (DELTASONE) tablet 5 mg 0913 (Given - Provider: Torres Altamirano) 5 mg, Oral, DAILY, First dose on Thu05/12/17 at 0900, For 3 dose s sodium chloride (PF) 0.9% PF flush 3 mL 0120 (Not Give n - Provider: Ramiro Lozano RN - Reason: IV Infusing)0948 (Not Given - Provider: Aubrey Morales RN - Reason: IV Infusing)1717 (Not Given - Provider: Rosette Reese RN - Reason: IV Infusing) 0100 (Not Given - Provider: Jumana marina RN - Reason: IV Infusing)0927 (Not Given - Provider: Aubrey Morales RN - Reason: IV Infusing)1844 (Not Given - Provider: Joaquina Acosta RN - Reason: IV Infusing) 0202 (Not Given - Provider: Fela mcfarland, RN - Reason: IV Infusing)1000 (Not Given - Provider: Aubrey Morales RN - Reason: IV Infusing) 3 mL, Intracatheter, EVERY 8 HOURS, Firs t dose on Thu05/05/17 at 1800, And Q1H PRN, to lock peripheral IV dormant line. terazosin (HYTRIN) capsule 5 mg 2115 (Given - Provider : Rosette Reese RN) 221 (Given - Provider: Joaqiuna Acosta RN) 5 mg, Oral, AT BEDTIME, First dose on Thu05/08/17 at 2200 Continuous Medication Order 05/10/2017 05/11/2017 05/12/2017 0.45% sodium chloride + KCl 20 mEq/L infusion 0800 (Ra te/Dose Verify - Provider: Aubrey Morales RN)0821 (New Bag - Provider: Aubrey Morales RN)1928 (New Bag - Provider: Rosette Reese RN) 0928 (Rate/Dose Verify - Provider: Aubrey Morales RN)0931 (New Bag - Provider: Aubrey Morales, RN)1629 (Rate/Dose Verify - Provider: Joaquina Aocsta, JOSE)1950 (New Bag - Provider: Dulce Stack RN) 0405 (New Bag - Provider: Fela ferguson, RN)0800 (Rate/Dose Verify - Provider: Aubery Morales, RN) at 100 mL/hr, Intravenous, CONTINUOUS, S tarting Thu05/08/17 at 1430, Until Thu05/12/17 at 1747 PRN Medication Order 05/10/2017 05/11/2017 05/12/2017 albuterol neb solution 2.5 mg 2.5 mg, Nebulization, EVERY 6 HOURS PRN, wheezing, Sta rting Thu05/06/17 at 0944 diclofenac (VOLTAREN) 1 % topical gel 2 g 2 g, Transdermal, 4 TIMES DAILY PRN, mod erate pain, Starting 05/11/17 at 1554, Apply to low back, left hip, left leg Send dosing card with product. hydrALAZINE (APRESOLINE) injection 10-20 mg 10-20 mg, Intravenous, EVERY 6 HOURS PRN , high blood pressure, Starting Yesenia 05/07/17 at 0333 hypromellose-dextran (ARTIFICAL TEARS) ophthalmic solution 1 robert p 1 drop, Both Eyes, EVERY 1 HOUR PRN, dry eyes, Starting 05/05 at 1749 ipratropium - albuterol 0.5 mg/2.5 mg/3 mL (DUONEB) neb solution 3 mL 3 mL, Nebulization, EVERY 4 HOURS PRN, wheezing, Starting Wed at 1451 lidocaine (LMX4) cream Topical, EVERY 1 HOUR PRN, pain, with VA D insertion or accessing implanted port., Starting Thu05/05/17 at 1749, Do NOT give if patient has a history of allergy to any local anesthetic or any louie pro duct. Apply 30 minutes prior to VAD inse rtion or port access. MAX Dose: 2.5 g (?? of 5 g tube) lidocaine 1 % 1 mL 1 mL, Other, EVERY 1 HOUR PRN, mild pain with VAD insertion or accessing implanted port, Starting Thu05/05/17 at 1749, Do NOT give if patient has a history of allergy to any local anesthetic or any kathy ne product. MAX dose 1 mL subcutaneous OR intradermal in divide d doses. magnesium hydroxide (MILK OF MAGNESIA) suspension 30 mL 30 mL, Oral, DAILY PRN, constipation, St arting Thu05/05/17 at 1750, Hold for loose stools. This is the second step of a three step constipation treatment protocol. metoprolol (LOPRESSOR) injection 5 mg 5 mg, Intravenous, EVERY 4 HOURS PRN, ot her, HR > 120, hold for SBP < 90, Starting Thu05/08/17 at 2344 naloxone (NARCAN) injection 0.1-0.4 mg 0.1-0.4 mg, Intravenous, EVERY 2 MIN PRN , opioid reversal, Starting Thu05/08/17 at 1206, For respiratory rate LESS than or EQUAL to 8. Partial reversal dose: 0.1 mg titrated q 2 minutes for Analgesia Si de Effects Monitoring Sedation Level of 3 (frequently drowsy, arousable, drifts to sleep during conversation).Full reversal dose: 0.4 mg bolus for Analgesia Side Effects Monitoring Sedation Level of 4 ( somnolent, minimal or no response to stimulation). ondansetron (ZOFRAN) injection 4 mg(Linked Group 1) 4 mg, Intravenous, EVERY 6 HOURS PRN, na usea, vomiting, Administer over 2-5 Minutes, Starting 05/05/17 at 1750, This is Step 1 of nausea and vomiting management. If nausea not resolved in 15 minutes, go to Step 2 prochlorperazine (COMPAZINE). Irritant. ondansetron (ZOFRAN-ODT) ODT tab 4 mg(Linked Group 1) 4 mg, Oral, EVERY 6 HOURS PRN, nausea, v omiting, Starting 05/05/17 at 1750, This is Step 1 of nausea and vomiting management. If nausea not resolved in 15 minutes, go to Step 2 prochlorperazine (COMP AZINE). Do not push through foil backing . Peel back foil and gently remove. Place on tongue immediately. Administration with liquid unnecessary oxyCODONE (ROXICODONE) IR tablet 5 mg 0025 (Given - Pr ovider: Ramiro Lozano RN)0623 (Given - Provider: Ramiro Lozano RN)1020 (Given - Provider: Aubrey Morales RN)1558 (Given - Provider: Rosette Reese RN)2116 (Given - Pro vider: Rosette Reese RN) 0137 (Given - Provider: Jumana Rodriguez RN)0536 (Given - Provider: Jumana Rodriguez RN)0922 (Given - Provider: Aubrey Morales RN)1335 (Given - Provider: Aubrey Morales RN)1800 (Given - Provider: Rosette Reese RN) 0201 (Given - Provider: Fela Aguillon , JOSE)0556 (Given - Provider: Fela Aguillon, RN)1034 (Given - Provider: Haley García, JOSE)1433 (Given - Provider: Aubrey Morales RN) 5 mg, Oral, EVERY 4 HOURS PRN, moderate to severe pain, Starting 05/09/17 at 1620 2216 (Given - Provider: Joaquina Acosta, JOSE) senna-docusate (SENOKOT-S;PERICOLACE) 8.6-50 MG per tablet 1-2 t ablet 1-2 tablet, Oral, 2 TIMES DAILY PRN, con stipation , Starting Thu05/05/17 at 1750, If no bowel movement in 24 hours, increase to 2 tablets PO BID. Hold for loose stools. This is the first step of a three step constipation treatment protocol. sodium chloride (PF) 0.9% PF flush 3 mL 3 mL, Intracatheter, EVERY 1 HOUR PRN, l ine flush, for peripheral IV flush post IV meds, Starting Thu05/05/17 at 1750 No Frequency Medication Order 05/10/2017 05/11/2017 05/12/2017 lidocaine 2 % (URO-JET) jelly (COMPLETED) 1705 (Given - Provider: Rosette Reese RN - Comment: Per pt can have lidocaine (has novovain allergy)) Starting on 05/10/17 at 1557, For 1 dose, Rosette Reese: cabi net override lidocaine 2 % (URO-JET) jelly (COMPLETED) 0533 (Given - Provider: Jumana Rodriguez RN) Starting on Thu05/11/17 at 0533, For 1 dose, Jumana Rodriguez: cabinet override Linked Groups Order Group 1: ondansetron (ZOFRAN-ODT) ODT tab 4 mgJump to med 4 mg, Oral, EVERY 6 HOURS PRN, nausea, v omiting, Starting Thu05/05/17 at 1750
This is Step 1 of nausea and vomiting management. If nausea not resolved in 15 minutes, go to St ep 2 prochlorperazine (COMPAZINE). Do no t push through foil backing. Peel back foil and gently remove. Place on tongue immediately. Administration with liquid unnecessary
Or ondansetron (ZOFRAN) injection 4 mgJump to med 4 mg, Intravenous, EVERY 6 HOURS PRN, na usea, vomiting, Administer over 2-5 Minutes, Starting Thu05/05/17 at 1750
This is Step 1 of nausea and vomiting management. If nausea not resolved in 15 minutes, go to Step 2 prochlorperazine (COMPAZINE). Irritant.
documented in this encounter Care Teams Stucco Mason Relationship Specialty Start Date End Date Eduardo Coleyit PCP - General Family Practice 05/05/17 05/11/[address] [address] [facility] [place] P[facility] - General 05/12/17 [address] [place] [address] documented as of this encounter
--- OUTSIDE RECORDS SUMMARY | 2022-05-28 05:05 | XMS_ITS | Encounter Summary ---
:1940 Author Organization [place] Address [address] [place] [address] Care Team Providers Name Role Phone Clinic, [facility] Primary Care Provider [phone] Reason for Visit Reason Onset Date Comments Previsit 11/10/[address] Fatuma ng--visit 11/11/17 Encounter Details Date Type Department Care Team Description 11/10/2017 Telephone [facility] Heart Ebony Arnold, Previsit (New patient Clinic [place] RN for Dr Lugo--visit [address] [facility] 11/11/17) [address] [address] Social History Tobacco Use Types Packs/Day Years Used Date Former Smoker Comments: quit 1985 Alcohol Use Standard Drinks/Week [...] this encounter Miscellaneous Notes Telephone Encounter - Ebony Arnold RN - 11/10/2017 9:42 AM CST Spoke to patient regarding upcoming appt. Patient denies any cardiac symptoms at this time. Recent PMD visit in 09/2017 identified patient to see cardiology to discuss ongoing use of amiodarone which patient was placed on in 04/2017 when hospitalized and never followed up with cardiology. Reviewed withpatient current medication regimen and updated medication list to reflect what patient is taking. JOSE Shahid RVISOR MAPPING documented in this encounter Plan of Treatment Not on filedocumented as of this encounter Visit Diagnoses Not on filedocumented in this encounter Care Teams Capsule Inspector Relationship Specialty Start Date End Date Clinic, [facility] PCP - General 05/12/[address] [place] [id number] documented as of this encounter
--- OUTSIDE RECORDS SUMMARY | 2022-05-28 05:05 | XMS_ITS | Encounter Summary ---
:1940 Author Organization [place] Address [address] [place] [address] Care Team Providers Name Role Phone Clinic, [facility] Primary Care Provider [phone] Reason for Visit Reason Onset Date Comments Medication Question 05/13/2017 meds Encounter Details Date Type Department Care Team Description 05/13/2017 Telephone [facility] Heart Abimbola Brown M edication Question Clinic Tram GARCIA (meds) [address] [facility] [address] [place] [address] Social History Tobacco Use Types Packs/Day [...] this encounter Miscellaneous Notes Telephone Encounter - Abimbola Brown RN - 05/13/2017 11:07 AM CDT Pt Daughter Raquel called and states that med list sent home with pt on discharge has some errors. Called Raquel back and LM for her to call this proposal lead writer back. JNelsonRN documented in this encounter Plan of Treatment Not on filedocumented as of this encounter Visit Diagnoses Not on filedocumented in this encounter Care Teams Blanker Operator Relationship Specialty Start Date End Date Clinic, [facility] PCP - General 05/12/17 [address] [place] [address] documented as of this encounter
--- OUTSIDE RECORDS SUMMARY | 2022-05-28 05:05 | XMS_ITS | Encounter Summary ---
:1940 Author Organization [facility] Address [address] [place] [id number] Care Team Providers Name Role Phone Clinic, [facility] Primary Care Provider [phone] Reason for Visit Reason Comments Transient Ischemic Attack Encounter Details Date Type Department Care Team Description 11/14/2017 - [facility] brittani Stauffer MD [facility] [address] [place] [address] Transient cerebral ischemia, unspecified type (Primary Dx); 11/15/2017 Anders Jamie Bryan MD [address] [place] [address] Weakness on right side of face; Dept Uncontrolled hypertension [address] [place] [address] Social History Tobacco Use Types Packs/Day Years [...] Sign Reading Time Taken Comments Blood Pressure 157/73 11/15/2017 11:35 AM TILE DESIGNER Pulse 54 11/14/2017 11:13 PM TILE DESIGNER Temperature 35.8 ??C (96.5 ??F) 11/15/2017 11:35 AM TILE DESIGNER Respiratory Rate 18 11/15/2017 11:35 AM TILE DESIGNER Oxygen Saturation 97% 11/15/2017 11:35 AM TILE DESIGNER Inhaled Oxygen Concentration - - Weight 88.9 kg (196 lb) 11/15/2017 2:04 AM TILE DESIGNER Height 177.8 cm (5' 10) 11/15/2017 2:04 AM TILE DESIGNER Body Mass Index 28.12 11/15/2017 2:04 AM TILE DESIGNER documented in this encounter Discharge Summaries Luis Antonio Quintanilla MD - 11/15/2017 11:18 AM CST [facility] Discharge Summary Name: Speedy Hendricks Date of : 1940 Age: [age] year old Date of Discharge: 11/15/2017 Date of Admission: 11/14/2017 Primary Care Provider: Kehinde Portillo [place] Discharge Physician: Luis Antonio Quintanilla MD Discharging Service: Hospitalist Date of Service (when I saw the patient): 11/15/17 Discharge Diagnosis: Slurred speech, confusion, likely TIA Other Diagnosis: cardiac arrest in 04/2017, CVA, AAA, CKD3, HTN, and JACKSON Discharge Disposition: Discharged to home Allergies: Allergies Allergen Reactions ??? Norvasc [Amlodipine] ??? Novocain [Procaine Hcl] Bumps in throat ??? Penicillins Rash Discharge Medications: Current Discharge Medication List START taking these medications Details lisinopril (PRINIVIL/ZESTRIL) 10 MG tablet Take 0.5 tablets (5 mg) by mouth daily Qty: 30 tablet, Refills: 0 Associated Diagnoses: Uncontrolled hypertension apixaban ANTICOAGULANT (ELIQUIS) 2.5 MG tablet Take 1 tablet (2.5 mg) by mouth 2 times daily Qty: 60 tablet, Refills: 1 Associated Diagnoses: Transient cerebral ischemia, unspecified type CONTINUE these medications which have NOT CHANGED Details FUROSEMIDE PO Take 20 mg by mouth daily Acetaminophen (TYLENOL PO) Take 650 mg by mouth as needed atorvastatin (LIPITOR) 40 MG tablet Take 1 tablet (40 mg) by mouth daily Qty: 30 tablet, Refills: 0 Associated Diagnoses: Hyperlipidemia LDL goal <70; Acute left-sided low back pain without sciatica TERAZOSIN HCL PO Take 5 mg by mouth At Bedtime METOPROLOL TARTRATE PO Take 50 mg by mouth 2 times daily. STOP taking these medications ASPIRIN PO Comments: Reason for Stopping: Condition on Discharge: Discharge condition: Stable Discharge vitals: Blood pressure 176/85, pulse 54, temperature 97.1 ??F (36.2 ??C), temperature source Oral, resp. rate 18, height 1.778 m (5' 10), weight 88.9 kg (196 lb), SpO2 97 %. Code status on discharge: Full Code History of Illness: See detailed admission note for full details. 77 year old male with PMH including cardiac arrest in 04/2017, CVA, AAA, CKD3, HTN, and JACKSON who presents with family for evaluation of sudden onset neurologic symptoms at dinner. He was noticed to have a R sided facial droop, confusion about where he was and what he was doing, slurred speech and he slumped down to the R. He did not have LOC. He reportedly thought he was somewhere else. After 5 minutesthe symptoms resolved. Within 10min BP was checked and was 160 systolic. His daughters are RNs here so they brought him in for evaluatoin. He feels fine now except for a R sided headache. Also has Ciro sided neck pain down the lateral neck. The pain is mild to moderate in intensity. He does not haveslurred speech now nor confusion. No facial droop now. Denies any recent palpations since stopping amiodarone last week. No fevers, chills, chest pain, cough, sob. He denies any focal weakness or numbness tingling of extremities. ?? History obtained from patient, medical record, daughters who are RNs and from Dr. Mark in the emergency department. Here with TIA/stroke symptoms that resolved by arrival here. Neurologic exam intact. SBP initially 180s then 140- 160 without intervention. Labs unremarkable except for his baseline creatinine of 1.6. CTA head and neck obtained and prelim shows normal perfusion. Has ongoing R sided headache and neckache. EKG shows NSR. Admit for TIA vs small stroke with MRI tomorrow and neurology consultation. Significant Physical Exam Findings: Patient feels well. Symptoms resolved. Had headache this am but responded to Tylenol. No other complaints s1s2 rrr, lungs clear, abdo +BS. CN 2-12 intact. Remained neuro exam within normal limits Procedures: none Imaging: Results for orders placed or performed during the hospital encounter of 11/14/17 CT Head w Contrast Narrative CT ANGIOGRAM OF THE HEAD AND NECK WITH CONTRAST 11/14/2017 11:53 PM HISTORY: Code stroke. TECHNIQUE: CT angiography with an injection of 120 mL Isovue-370 IV with scans through the head and neck. Images were transferred to a separate 3-D workstation where multiplanar reformations and 3-D images were created. Estimates of carotid stenoses are made relative to the distal internal carotid artery diameters except as noted. Radiation dose for this scan was reduced using automated exposure control, adjustment of the mA and/or kV according to patient size, or iterative reconstruction technique. Perfusion scans were performed at three levels with injection of an additional 40 mL IV nonionic contrast and 20 mL saline flush. These images were processed on a separate 3-D workstation. COMPARISON: None. CT HEAD FINDINGS: No contrast enhancing lesions. Head CT perfusion images are unremarkable. CT ANGIOGRAM HEAD FINDINGS: There is a short 4 mm segment of nonopacification of the proximal left P2 segment. The distal P2 artery is widely patent. 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 The other major intracranial arteries including the proximal branches of the anterior cerebral and middle cerebral arteries appear patent without vascular cutoff. No aneurysm identified. There is atherosclerotic calcification of the cavernous and supraclinoid internal carotid arteries without significant stenosis. Venous circulation is unremarkable. CT ANGIOGRAM NECK FINDINGS: Scattered atherosclerotic calcification in the aortic arch without significant stenosis at the origins of the great vessels. Right carotid artery: The right common and internal carotid arteries are patent. Atherosclerotic calcifications at the carotid bifurcation without significant stenosis by NASCET criteria. Left carotid artery: The left common and internal carotid arteries are patent. Atherosclerotic calcifications at the carotid bifurcation without significant stenosis by NASCET criteria. Vertebral arteries: Vertebral arteries are patent without evidence of dissection. Mild narrowing at the origin of the right vertebral artery. Other findings: There are postoperative changes of anterior cervical spine fusion from C4 to C6. Impression IMPRESSION: 1. Patent arteries in the neck without evidence of dissection. Atherosclerotic calcifications at the carotid bifurcations bilaterally without significant stenosis by NASCET criteria. Mild narrowing at the origin of the right vertebral artery. 2. Focal 4 mm short segment of severe stenosis/near occlusion of the proximal left P2 segment with a widely patent distal P2 artery. 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 The remaining major intracranial arteries appear patent without vascular cutoff. No other significant intracranial stenosis. No aneurysm identified. 3. Unremarkable CT perfusion images of the head. I agree with the overnight preliminary report by the radiologist. KATIA DAVID MD CTA Angiogram Head Neck Narrative CT ANGIOGRAM OF THE HEAD AND NECK WITH CONTRAST 11/14/2017 11:53 PM HISTORY: Code stroke. TECHNIQUE: CT angiography with an injection of 120 mL Isovue-370 IV with scans through the head and neck. Images were transferred to a separate 3-D workstation where multiplanar reformations and 3-D images were created. Estimates of carotid stenoses are made relative to the distal internal carotid artery diameters except as noted. Radiation dose for this scan was reduced using automated exposure control, adjustment of the mA and/or kV according to patient size, or iterative reconstruction technique. Perfusion scans were performed at three levels with injection of an additional 40 mL IV nonionic contrast and 20 mL saline flush. These images were processed on a separate 3-D workstation. COMPARISON: None. CT HEAD FINDINGS: No contrast enhancing lesions. Head CT perfusion images are unremarkable. CT ANGIOGRAM HEAD FINDINGS: There is a short 4 mm segment of nonopacification of the proximal left P2 segment. The distal P2 artery is widely patent. 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 The other major intracranial arteries including the proximal branches of the anterior cerebral and middle cerebral arteries appear patent without vascular cutoff. No aneurysm identified. There is atherosclerotic calcification of the cavernous and supraclinoid internal carotid arteries without significant stenosis. Venous circulation is unremarkable. CT ANGIOGRAM NECK FINDINGS: Scattered atherosclerotic calcification in the aortic arch without significant stenosis at the origins of the great vessels. Right carotid artery: The right common and internal carotid arteries are patent. Atherosclerotic calcifications at the carotid bifurcation without significant stenosis by NASCET criteria. Left carotid artery: The left common and internal carotid arteries are patent. Atherosclerotic calcifications at the carotid bifurcation without significant stenosis by NASCET criteria. Vertebral arteries: Vertebral arteries are patent without evidence of dissection. Mild narrowing at the origin of the right vertebral artery. Other findings: There are postoperative changes of anterior cervical spine fusion from C4 to C6. Impression IMPRESSION: 1. Patent arteries in the neck without evidence of dissection. Atherosclerotic calcifications at the carotid bifurcations bilaterally without significant stenosis by NASCET criteria. Mild narrowing at the origin of the right vertebral artery. 2. Focal 4 mm short segment of severe stenosis/near occlusion of the proximal left P2 segment with a widely patent distal P2 artery. 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 The remaining major intracranial arteries appear patent without vascular cutoff. No other significant intracranial stenosis. No aneurysm identified. 3. Unremarkable CT perfusion images of the head. I agree with the overnight preliminary report by the radiologist. KATIA DAVID MD CT Head w/o Contrast Narrative CT SCAN OF THE HEAD WITHOUT CONTRAST 11/14/2017 11:39 PM HISTORY: Code stroke. TECHNIQUE: Axial images of the head and coronal reformations without IV contrast material. Radiation dose for this scan was reduced using automated exposure control, adjustment of the mA and/or kV according to patient size, or iterative reconstruction technique. COMPARISON: Brain MR 05/09/2017. FINDINGS: There is no evidence of intracranial hemorrhage, mass, or anomaly. There is generalized atrophy of the brain. There is low attenuation in the white matter of the cerebral hemispheres consistent with sequelae of small vessel ischemic disease. The visualized portions of the sinuses and mastoids appear normal. The bony calvarium and bones of the skull base appear intact. Impression IMPRESSION: 1. No evidence of acute intracranial hemorrhage, mass, or herniation. 2. There is generalized atrophy of the brain. White matter changes are present in the cerebral hemispheres that are consistent with small vessel ischemic disease in this age patient. I agree with the overnight preliminary report by the radiologist. KATIA DAVID MD MRI Brain w & w/o contrast Narrative MRI BRAIN WITHOUT AND WITH CONTRAST 11/15/2017 9:15 AM HISTORY: Stroke with SWI sequence. TECHNIQUE: Multiplanar, multisequence MRI of the brain without and with 10 mL Gadavist. COMPARISON: Brain MR 05/09/2017. FINDINGS: Susceptibility artifact from metallic density in the right forehead slightly limits evaluation. No restricted diffusion to suggest infarct, although the anterior lateral right frontal lobe is distorted by artifact. No evidence of acute intracranial hemorrhage. No mass effect or midline shift. Moderate diffuse parenchymal volume loss. Moderate patchy deep and subcortical white matter T2 hyperdensities which are nonspecific but likely related to chronic microvascular ischemic disease. No abnormal intracranial enhancement. The facial structures appear normal. Impression IMPRESSION: 1. No evidence of acute infarct, mass, hemorrhage, or herniation. 2. Moderate diffuse parenchymal volume loss and white matter changes likely due to chronic microvascular ischemic disease without significant change since prior. KATIA DAVID MD Consultations: No consultations were requested during this admission. Significant Lab Results: Recent Labs Lab 11/14/17 2329 WBC 6.1 HGB 13.7 HCT 41.0 MCV 97 PLT 122* Lab Results Component Value Date NA 141 11/15/2017 NA 141 11/14/2017 NA 144 05/12/2017 Lab Results Component Value Date CHLORIDE 109 11/15/2017 CHLORIDE 107 11/14/2017 CHLORIDE 112 05/12/2017 Lab Results Component Value Date BUN 33 11/15/2017 BUN 32 11/14/2017 BUN 25 05/12/2017 Lab Results Component Value Date POTASSIUM 4.1 11/15/2017 POTASSIUM 3.7 11/14/2017 POTASSIUM 4.0 05/12/2017 Lab Results Component Value Date CO2 25 11/15/2017 CO2 26 11/14/2017 CO2 22 05/12/2017 Lab Results Component Value Date CR 1.51 11/15/2017 CR 1.67 11/14/2017 CR 1.55 05/12/2017 Pending Results: Unresulted Labs Ordered in the Past 30 Days of this Admission No orders found for last 61 day(s). Discharge Instructions and Follow-Up: Discharge diet: Active Diet Order Regular Diet Adult Diet Discharge activity: Activity as tolerated Discharge follow-up: Follow up with primary care provider in 7 days Outpatient therapy: None Home Care agency: None Other instructions: Chem 7 in 2- days, cardiac event monitor, echo with bubble Hospital Course: Patient was admitted to the Obs Unit. His symptoms resolved. MRI did not show acute stroke. I sat with him and his daughter. I indicated he should be on a blood thinner at this point. He also needs better BP control. I personally spoke with Dr. Puentes of Neurology who agrees with NOAC. I also spoke with his Senior Technical Support Analyst (Dr. Wilson) who agreed with starting lisinopril. Patient will DC with Eliquis and Lisinopril 5mg. His Chem will be checked and lisinopril will be increased to 10mg as an outpt if his kidney function is good. He already has an order for a zio patch. I will change this to an event monitor given his recent neurological event. I have also ordered an ECHO with bubble to be done as an outpt. Total time spent in face to face contact with the patient and coordinating discharge was: 50 Minutes. Luis Antonio Quintanilla MD Pager: [phone] DESIGNER documented in this encounter Medications at Time [...] documented as of this encounter Progress Notes Samantha Vergara RT - 11/15/2017 2:19 AM CST RT Note ordered EKG. EKG performed and placed in patient's chart. Samantha Vergara RRT DESIGNER documented in this encounter H&P Notes Jamie Gates MD - 11/15/2017 1:33 AM CST [facility] Hospitalist Admission Note Name: Speedy Hendricks Date of : 1940 Age: [age] year old Date of admission: 11/14/2017 Primary care provider: Kehinde Portillofield Chief Complaint: Facial droop, confusion Assessment and Plan: 1. Suspect TIA vs lacunar stroke: sudden onset of R facial droop, slurred speech, leaning to the right, and confusion while eating dinner. Symptoms resolved after 5 minutes. Now just has R Sided headache and R sided neck pain which is peculiar given also R sided neuro symptoms. Concern for TIA vs lacunar stroke given his hx. CTA head and neck prelim reported as normal perfusion study. Is on appropriate statin and aspirin therapy. See below for details on afib and CVA hx. -MRI brain ordered, MRI machine is supposed to be operational by morning -permissive HTN -monitor for recurrence of symptoms -PT/OT/SWATCH CLERK -bedside swallow eval by RN, ok to eat if passes -neurology consult -? Neck pain if persists, await formal CTA read to see if any comments on carotid artery 2. Hx L sided CVA: a few different L sided areas of stroke in 04/2017 after cardiac arrest. This may have been hypoxia driven. Embolic in differential given he did have some paroxysmal afib during that hospitalization. Has been in NSR now and stopped amiodarone last week. On aspirin and statin. 3. Paroxysmal afib: found during admission after cardiac arrest that was opiate induced. EKG NSR andhas been normal rate and controlled for some time. Was on amiodarone that was stopped by his certified registered locksmith last week. Continues on 81mg aspirin and metoprolol 50mg bid. AC refused by patient/family due to enlarging AAA. -continue aspirin -continue metoprolol 50mg bid 4. Hx cardiac arrest: suspected due to mscontin buildup in setting of CKD. Hospitalized at [facility] 04/2017. Has been doing quite well since. 5. AAA: enlarging and up to 4.2cm when last checked. Due for repeat US next month. Father from AAA at age 61. 6. HTN: SBP elevated here initially to 185/99 now down to 140-150s in ED without intervention. 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 -continue metoprolol given arrhythmia issues -allow permissive HTN so hold his captain waiter lasix and also terazosin for now which could bring down BP 7. CKD stage III: creatinine at baseline of 1.6 to 1.7. Did get contrast for CTA tonight. Received some IV fluids. -bmp tomorrow 8. JACKSON: did not confirm if uses cpap or not. Can uses supplemental O2 hs prn if needed. DVT Prophylaxis: Low Risk/Ambulatory with no VTE prophylaxis indicated Code Status: Full Code FEN: regular diet if passes bedside swallow Discharge Dispo: home Estimated Disch Date / # of Days until Disch: admit to obs for TIA. MRI tomorrow and neurology consult History of Present Illness: Speedy Hendricks is a 77 year old male with PMH including cardiac arrest in 04/2017, CVA, AAA, CKD3, HTN, and JACKSON who presents with family for evaluation of sudden onset neurologic symptoms at dinner. Hewas noticed to have a R sided facial droop, confusion about where he was and what he was doing, slurred speech and he slumped down to the R. He did not have LOC. He reportedly thought he was somewhere else. After 5 minutes the symptoms resolved. Within 10min BP was checked and was 160 systolic. His daughters are RNs here so they brought him in for evaluatoin. He feels fine now except for a R sided headache. Also has some R sided neck pain down the lateral neck. The pain is mild to moderate in intensi ty. He does not have slurred speech now nor confusion. No facial droop now. Denies any recent palpations since stopping amiodarone last week. No fevers, chills, chest pain, cough, sob. He denies any focal weakness or numbness tingling of extremities. History obtained from patient, medical record, daughters who are RNs and from Dr. Mark in the emergency department. Here with TIA/stroke symptoms that resolved by arrival here. Neurologic exam intact. SBP initially 180s then 140- 160 without intervention. Labs unremarkable except for his baseline creatinine of 1.6. CTA head and neck obtained and prelim shows normal perfusion. Has ongoing R sided headache and neckache. EKG shows NSR. Admit for TIA vs small stroke with MRI tomorrow and neurology consultation. Past Medical History reviewed: Past Medical History: Diagnosis Date ??? AAA (abdominal aortic aneurysm) (H) ??? Arthritis neck ??? Atrial tachycardia (H) 04/2017 nonsustained ??? Basal cell carcinoma ??? 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 Chronic pain lumbar back ??? CKD (chronic kidney disease) stage 3 ??? Hypertension ??? Opioid overdose 04/2017 ??? JACKSON (obstructive sleep apnea) CVA following cardiac arrest 04/2017 Paroxysmal afib Past Surgical History reviewed: Past Surgical History: Procedure Laterality Date ??? [...] left lung surg decortifcation ??? wisdom teeth[ Social History reviewed: Social History Substance Use Topics ??? Smoking status: Former Smoker ??? Smokeless tobacco: Never Used Comment: quit 1984 ??? Alcohol use Yes Comment: 10 per week Social History Social History Narrative Family History reviewed: Family History Problem Relation Age of Onset ??? Abdominal Aortic Aneurysm Father from AAA at age 61 Allergies: Allergies Allergen Reactions ??? Norvasc [Amlodipine] ??? Novocain [Procaine Hcl] Bumps in throat ??? Penicillins Rash Medications: Prior to Admission medications Medication Sig Last Dose Taking? Auth Provider FUROSEMIDE PO Take 20 mg by mouth daily Reported, Patient Acetaminophen (TYLENOL PO) Take 650 mg by mouth as needed Reported, Patient atorvastatin (LIPITOR) 40 MG tablet Take 1 tablet (40 mg) by mouth daily Adrian Pleitez MD ASPIRIN PO Take 81 mg by mouth daily Reported, Patient TERAZOSIN HCL PO Take 5 mg by mouth At Bedtime Unknown, Entered By History METOPROLOL TARTRATE PO Take 50 mg by mouth 2 times daily. Reported, Patient Review of Systems: A Comprehensive greater than 10 system review of systems was carried out. Pertinent positives and negatives are noted above. Otherwise negative. Physical Exam: Blood pressure 141/86, pulse 54, temperature 97.4 ??F (36.3 ??C), temperature source Temporal, resp.rate 18, height 1.778 m (5' 10), weight 89.1 kg (196 lb 6.9 oz), SpO2 98 %. Wt Readings from Last 1 Encounters: 11/14/17 89.1 kg (196 lb 6.9 oz) Exam: Constitutional: Awake, NAD Eyes: sclera white HEENT: atraumatic, MMM, EOM intact Respiratory: no respiratory distress, lungs cta bilaterally, no crackles or wheeze Cardiovascular: RRR. No murmur GI: non-tender, not distended, bowel sounds present, no bruit heard Skin: no rash or lesions, acyanotic Musculoskeletal/extremities: atraumatic, no major deformities. No edema Neurologic: A&O, speech clear, strength 5/5 UE and LE bilaterally, light touch sensation intact,CN II-XII intact Psychiatric: calm, cooperative, normal affect Lab and imaging data personally reviewed: Labs: Recent Labs Lab 11/14/17 232 WBC 6.1 HGB 13.7 HCT 41.0 MCV 97 PLT 122* Recent Labs Lab 11/14/172328 NA 141 POTASSIUM 3.7 CHLORIDE 107 CO2 26 ANIONGAP 8 GLC 103* BUN 32* CR 1.67* GFRESTIMATED 40* GFRESTBLACK 49* BALDEMAR 8.9 Recent Labs Lab 11/14/179 TROPI <0.015 INR 0.96 EKG: NSR Imaging: Prelim head CT, CTA head and neck appears ok with acute stroke and normal perfusion Jamie Gates MD Hospitalist [facility] DESIGNER documented in this encounter ED Notes Debra Araujo RN - 11/15/2017 12:36 AM CST [facility] ED Nurse Handoff Report Speedy Hendricks is a 77 year old male ED Chief complaint: Transient Ischemic Attack . ED Diagnosis: Final diagnoses: Weakness on right side of face - resolved Uncontrolled hypertension Allergies: Allergies Allergen Reactions ??? Norvasc [Amlodipine] ??? Novocain [Procaine Hcl] Bumps in throat ??? Penicillins Rash Code Status: Full Code Activity level - Baseline/Home: Independent. Activity Level - Current: Independent. Lift room needed: No. Bariatric: No Securities Clerk Needed: No Isolation: No. Infection: Not Applicable. Vital Signs: Vitals: 11/14/17 2313 11/15/17 0000 11/15/17 0015 11/15/17 0030 BP: (!) 185/99 148/78 157/87 141/86 Pulse: 54 Resp: 18 Temp: 97.4 ??F (36.3 ??C) TempSrc: Temporal SpO2: 99% 98% 97% 98% Weight: 89.1 kg (196 lb 6.9 oz) Height: 1.778 m (5' 10) Cardiac Rhythm: , Pain level: 0-10 Pain Scale: 8 Patient confused: No. Patient Falls Risk: Yes. Elimination Status: Has not yet voided in ED Patient Report - Initial Complaint: Stroke. Speedy Hendricks is a 77 year old male with a history of AAA, hypertension, dyslipidemia, and chronic kidney disease who presents accompanied by his daughter for evaluation of facial asymmetry, confusion, and a headache. Tonight around 2154, the patient was ea ting dinner with one of his daughters when he suddenly developed right-sided facial drooping, difficulty speaking, described as garbled speech,, confusion, and he slumped towards the right. At that time, the patient told his daughter that he was at a friend's house rather than his own, and he statedthat he needed to catch the bus. His daughter asked him if he was able to stand and he said that he was not. After about 5 minutes, the patient's symptoms completely resolved, and since then he has only been able to complain of a right-sided headache, which he would rate at a severity of 8/10. He doesnot have any recollection of the 5 minute episode of facial asymmetry and confusion. He denies any chest pain, shortness of breath, visual disturbance, or numbness. Focused Assessment: Neurological evaluation was unremarkable as the stroke symptoms have resolved prior to arrival to ED. Still c/o headache otherwise, no facial droop, no unilateral weakness, patient is able to stand, good equal bilateral broke worker, speech clear, gcs 15, AA&Ox3. Tests Performed: labs, CT head, CTA Head/Neck. Abnormal Results: Labs Ordered and Resulted from Time of ED Arrival Up to the Time of Departure from the ED BASIC METABOLIC PANEL - Abnormal; Notable for the following: Result Value Glucose 103 (*) Urea Nitrogen 32 (*) Creatinine 1.67 (*) GFR Estimate 40 (*) GFR Estimate If Black 49 (*) All other components within normal limits CBC WITH PLATELETS DIFFERENTIAL - Abnormal; Notable for the following: RBC Count 4.23 (*) Platelet Count 122 (*) All other components within normal limits INR PARTIAL THROMBOPLASTIN TIME TROPONIN I CT head and CTA Head/Neck: Negative Treatments provided: Monitor Family Comments: Daughter at bedside OBS brochure/video discussed/provided to patient: Yes ED Medications: Medications 0.9% sodium chloride BOLUS (0 mLs Intravenous Stopped 11/14/17 6912) iopamidol (ISOVUE-370) solution 500 mL (120 mLs Intravenous Given 11/14/17 4648) Drips infusing: No For the majority of the shift, the patient's behavior Green. Interventions performed were NA. Severe Sepsis OR Septic Shock Diagnosis Present: No ED Nurse Name/Phone Number: Allen Guzmán, 12:36 AM RECEIVING UNIT ED HANDOFF REVIEW Above ED Nurse Handoff Report was reviewed: Yes Reviewed by: Debra Araujo on November 15, 2017 at 1:41 AM Danay Ontiveros RN - 11/14/2017 11:11 PM CST Facial droop and inability to answer questions for approximately 5 minutes at 2155. Symptoms have resolved, pt continues to c/o headache. Hst of stroke-like symptoms. Damian Jaeger MD - 11/14/2017 11:06 PM CST History Chief Complaint: Facial Asymmetry, Confusion, and Headache HPI Speedy Hendricks is a 77 year old male with a history of AAA, hypertension, dyslipidemia, and chronickidney disease who presents accompanied by his daughter for evaluation of facial asymmetry, confusion, and a headache. Tonight around 2155, the patient was eating dinner with one of his daughters when he suddenly developed right-sided facial drooping, difficulty speaking, described as garbled speech,, confusion, and he slumped towards the right. At that time, the patient told his daughter that he was at a friend's house rather than his own, and he stated that he needed to catch the bus. His daughter asked him if he was able to stand and he said that he was not. After about 5 minutes, the patient's symptoms completely resolved, and since then he has only been able to complain of a right-sided headache, which he would rate at a severity of 8/10. He does not have any recollection of the 5 minute episode of facial asymmetry and confusion. He denies any chest pain, shortness of breath, visual distur bance, or numbness. He takes 81 mg Aspirin daily but is not otherwise anticoagulated. Notably, he stopped Amiodarone recently per his cardiology, Dr. Lugo. Details regarding the patient's last brain MRI are as below. MR Brain w/o & w Contrast 05/05/2017: IMPRESSION: 1. Limited diffusion consistent with ischemia or infarcts in the left hippocampal formation and in the cortex of the medial left superior frontal gyrus. 2. Brain atrophy and white matter changes consistent with sequelae of small vessel ischemic disease. Allergies: Norvasc Novocain Penicillins Medications: FUROSEMIDE PO Acetaminophen (TYLENOL PO) atorvastatin (LIPITOR) 40 MG tablet ASPIRIN PO TERAZOSIN HCL PO METOPROLOL TARTRATE PO Past Medical History: Abdominal aortic aneurysm Arthritis Atrial tachycardia Basal cell carcinoma Chronic infection Chronic pain Chronic kidney disease Hypertension Opioid overdose Obstructive sleep apnea Past Surgical History: Appendectomy Lumbar fusion x2 Tonsillectomy Excise toenail(s) Left foot surgery Cervical fusion x2 Remove hardware foot Thoracic surgery, right lung surgery Allen teeth extraction Family History: History reviewed. No pertinent family history. Social History: Tobacco use: Former smoker Alcohol use: Positive - 10 drinks / week Marital status: Accompanied to ED by: Daughter Review of Systems Eyes: Negative for visual disturbance. Respiratory: Negative for shortness of breath. Cardiovascular: Negative for chest pain. Neurological: Positive for facial asymmetry (right-sided drooping, resolved), speech difficulty (resolved), weakness (right-sided, resolved) and headaches. Negative for numbness. Psychiatric/Behavioral: Positive for confusion (resolved). All other systems reviewed and are negative. Physical Exam First Vitals: BP: (!) 185/99 Pulse: 54 Heart Rate: 54 Temp: 97.4 ??F (36.3 ??C) Resp: 18 Height: 177.8 cm (5' 10) Weight: 89.1 kg (196 lb 6.9 oz) SpO2: 99 % Physical Exam Constitutional: Alert, attentive HENT: Nose: Nose normal. Mouth/Throat: Oropharynx is clear, mucous membranes are moist Eyes: EOM are normal. Pupils are equal, round, and reactive to light. CV: Regular rate and rhythm, no murmurs, rubs or gallops. Chest: Effort normal and breath sounds normal. GI: No distension. There is no tenderness MSK: Normal range of motion. Neurological: GCS 15; A/Ox3; Cranial nerves 2-12 intact; 5/5 strength throughout the upper and lower extremities; sensation intact to light touch throughout the upper and lower extremities; 2+ DTRs to the bilateral upper and lower extremities (biceps, BRs, patellar, achilles); normal fine motor coordination intact bilaterally; Skin: Skin is warm and dry. Emergency Department Course ECG (23:22:47): Indication: Screening for cardiovascular disease. Rate 58 bpm. DC interval 184 ms. QRS duration 82 ms. QT/QTc 468/459 ms. P-R-T axes -9 -8 11. Interpretation: Sinus bradycardia, Otherwise normal ECG, A fib resolved Agree with computer interpretation. Yes Interpreted at [address] Mark. Imaging: Radiographic findings were communicated with the patient and family who voiced understanding of the findings. Head CTA: 1. Noncontrast head CT demonstrates no hemorrhage, mass/mass effect, or CT evidence of acute infarct. 2. Age-related changes. 3. Head CTA demonstrates severe focal stenosis of the left P2 segment AIR PLANT ENGINEER with a small trickle of contrast extending around an eccentric filling defect. The vessel beyond this is widely patent. Findings suggest this may be a chronic stenosis. 4. No other high-grade stenosis or branch occlusion. 5. No aneurysm or AVM. Preliminary report per radiology. Neck CTA: 1. Moderate narrowing right vertebral artery origin. 2. No other significant stenosis by NASCET criteria. Preliminary report per radiology. Perfusion CT: 1. Color maps demonstrate symmetric perfusion to both cerebral hemispheres. Preliminary report per radiology. Laboratory: CBC: PLT 122 low, o/w WNL (WBC 6.1, HGB 13.7) BMP: Glucose 103 high, BUN 32 high, Creatinine 1.67 high, GFR Estimate 40 low, o/w WNL INR: 0.96 Partial thromboplastin time: 30 Troponin I 2329: <0.015 Interventions: 0111 Tylenol 1,000 mg PO Emergency Department Course: Nursing notes and vitals reviewed. 2318: I performed an exam of the patient as documented above. 2322: Code stroke. 2326: I spoke with Dr. Hendricks of the neurology service regarding patient's presentation, findings, and plan of care. 2348: I spoke with Dr. Arriaga of the radiology service from [facility] regarding patient's presentation, findings, and plan of care. 2350: I updated and reassessed the patient. 0006: I spoke with Dr. Hendricks of the neurology service regarding patient's presentation, findings, and plan of care. 0053: I spoke with Dr. Gates of the hospitalist service regarding patient's presentation, findings,and plan of care. Findings and plan explained to the Patient and daughter who consents to admission. Discussed the patient with Dr. Gates, who will admit the patient to an obs bed for further monitoring, evaluation, and treatment. Impression & Plan Medical Decision Making: This is a 77-year-old male with notable history associated with A. fib episodes while hospitalized, who presents for evaluation of right facial droop. Symptoms are now resolved and neurologic exam is oriented. Given headache above symptoms, CT performed and are negative. Symptoms remain resolved. Differential includes TIA versus possible thromboembolic stroke event, among others. He will be admitted to the option with plan for continued workup and MRI tomorrow. The remainder of the workup shows stable CKD but no other pertinent findings. Diagnosis: ICD-10-CM 1. Weakness on right side of face R29.810 resolved 2. Uncontrolled hypertension I10 Disposition: Admitted to Dr. Gates. I, Dwayne Aguilar, am serving as a scribe at 11:18 PM on 11/14/2017 to document services personally performed by Dr. Mark, based on my observations and the provider's statements to me. [facility] EMERGENCY DEPARTMENT Damian Mark MD 11/15/17 0149 DESIGNER documented in this encounter Miscellaneous Notes Plan of Care - Ca Major RN - 11/15/2017 12:24 PM CST Problem: Patient Care Overview Goal: Discharge Needs Assessment Outcome: Adequate for Discharge Date Met: 11/15/17 Patient's After Visit Summary was reviewed with patient. Patient verbalized understanding of After Visit Summary, recommended follow up and was??given an opportunity to ask questions. Discharge medications sent home with patient/family: lisinopril and eliquis Discharged with: daughter OBSERVATION patient END time: 1210 DESIGNER Plan of Care - Mitra Joshi OT - 11/15/2017 9:39 AM CST Problem: Patient Care Overview Goal: Plan of Care/Patient Progress Review OT: Orders received and chart reviewed. Discussed with treatment team including physical therapist. No Ip OT needs at this time. Will complete orders DESIGNER Plan of Care - Brittany Alcantar, PT - 11/15/2017 9:23 AM CST Problem: Patient Care Overview Goal: Plan of Care/Patient Progress Review PT: Received orders for evaluation and treatment; per chart review and Obs team, no inpatient therapy needs at this time (issues have resolved). Will complete therapy orders. DESIGNER Plan of Care - Ca Major RN - 11/15/2017 8:00 AM CST Problem: Patient Care Overview Goal: Plan of Care/Patient Progress Review PRIMARY DIAGNOSIS: TIA R/O OUTPATIENT/OBSERVATION GOALS TO BE MET BEFORE DISCHARGE: 1. Orthostatic performed: No 2. Diagnostic testing complete & at baseline neurologic testing: Yes 3. Cleared by consultants (if involved): No 4. Interpretation of cardiac rhythm per rehabilitation therapy technician: SR 5. Tolerating adequate PO diet and medications: Yes 6. Return to near baseline physical activity or neurologic status: Yes Site Acquisition Manager Nurse Safe discharge environment identified: Yes Barriers to discharge: Yes Entered by: Ca Major 11/15/2017 Please review provider order for any additional goals. Nurse to notify provider when observation goals have been met and patient is ready for discharge. VSS, up independent, A&Ox4, steady gait, denies dizziness, reports 5/10 headache, improved aftertylenol given enterprise project manager, denies N/T, plan for MRI this AM, neuro consult, daughter at bedside, will continue to monitor and provide supportive cares. DESIGNER Plan of Care - Debra Araujo RN - 11/15/2017 2:30 AM CST Problem: Patient Care Overview Goal: Plan of Care/Patient Progress Review Outcome: Improving ROOM # 226 Living Situation (if not independent, order SW consult): lives independently Facility name: sporting goods salesperson: daughters listed on chart Activity level at baseline: ind Activity level on admit: ind Patient registered to observation; given Patient Bill of Rights; given the opportunity to ask questions about observation status and their plan of care. Patient has been oriented to the observation room, bathroom and call light is in place. Discussed discharge goals and expectations with patient/family. DESIGNER documented in this encounter Plan of Treatment Not on filedocumented as of this encounter Procedures Procedure Name Priority Date/Time Associated Comments Diagnosis MR BRAIN W/O & W Routine 11/15/2017 9:15 AM Resul ts for this CONTRAST TILE DESIGNER procedure are i n the results section. BASIC METABOLIC PANEL Routine 11/15/2017 6:37 AM Weakness on r ight Results for this TILE DESIGNER side of face procedure are i n the results section. EKG 12-LEAD, TRACING Routine 11/15/2017 2:08 AM R esults for this ONLY TILE DESIGNER procedure are i n the results section. CT HEAD W CONTRAST STAT 11/14/2017 11:58 Resul ts for this PM TILE DESIGNER procedure are i n the results section. CTA HEAD NECK W STAT 11/14/2017 11:53 Results for this CONTRAST PM TILE DESIGNER procedure are i n the results section. CT HEAD W/O CONTRAST STAT 11/14/2017 11:39 Res ults for this PM TILE DESIGNER procedure are i n the results section. CBC WITH PLATELETS & Routine 11/14/2017 11:29 Res ults for this DIFFERENTIAL PM TILE DESIGNER procedure are i n the results section. TROPONIN I Routine 11/14/2017 11:29 Results for this PM TILE DESIGNER procedure are i n the results section. INR Routine 11/14/2017 11:29 Results for this PM TILE DESIGNER procedure are i n the results section. PARTIAL THROMBOPLASTIN Routine 11/14/2017 11:29 R esults for this TIME PM TILE DESIGNER procedure are i n the results section. BASIC METABOLIC PANEL Routine 11/14/2017 11:29 Re sults for this PM TILE DESIGNER procedure are i n the results section. EKG 12-LEAD, TRACING STAT 11/14/2017 11:22 Res ults for this ONLY PM TILE DESIGNER procedure are i n the results section. documented in this encounter Results MRI Brain w & w/o contrast (11/15/2017 9:15 AM TILE DESIGNER) Anatomical Region Laterality Modality Head, SUBRAD MR NEURO, UMP MR NEURO, RAD MR Magnetic Resonance Specimen (Source) Anatomical Location Collection Method / Collectio n Time Received Time / Laterality Volume Impressions 11/15/2017 9:39 AM TILE DESIGNER IMPRESSION: ?? 1. No evidence of acute infarct, mass, h emorrhage, or herniation. 2. Moderate diffuse parenchymal volume l oss and white matter changes likely due to chronic microvascular isch emic disease without significant change since prior. KATIA DAVID MD Narrative 11/15/2017 9:39 AM TILE DESIGNER MRI BRAIN WITHOUT AND WITH CONTRAST ??11/15/2017 9:15 AM HISTORY: ??Stroke with SWI sequence. TECHNIQUE: ??Multiplanar, multisequence MRI of the brain without and with 10 mL Gadavist. COMPARISON: Brain MR 05/09/2017. FINDINGS: Susceptibility artifact from m etallic density in the right forehead slightly limits evaluation. No restricted diffusion to suggest infarct, although the anterior l ateral right frontal lobe is distorted by artifact. No evidence of ac [place] intracranial hemorrhage. No mass effect or midline shift. Moderat e diffuse parenchymal volume loss. Moderate patchy deep and subcortic al white matter T2 hyperdensities which are nonspecific but likely related to chronic microvascular ischemic disease. No abnormal intracranial enhancement. The facial structures appear normal. Procedure Note Katia David MD - 11/15/2017 MRI BRAIN WITHOUT AND WITH CONTRAST 11/15 9:15 AM HISTORY: Stroke with SWI sequence. TECHNIQUE: Multiplanar, multisequence MR I of the brain without and with 10 mL Gadavist. COMPARISON: Brain MR 05/09/2017. FINDINGS: Susceptibility artifact from m etallic density in the right forehead slightly limits evaluation. No restricted diffusion to suggest infarct, although the anterior l ateral right frontal lobe is distorted by artifact. No evidence of ac [place] intracranial hemorrhage. No mass effect or midline shift. Moderat e diffuse parenchymal volume loss. Moderate patchy deep and subcortic al white matter T2 hyperdensities which are nonspecific but likely related to chronic microvascular ischemic disease. No abnormal intracranial enhancement. The facial structures appear normal. IMPRESSION: 1. No evidence of acute infarct, mass, h emorrhage, or herniation. 2. Moderate diffuse parenchymal volume l oss and white matter changes likely due to chronic microvascular isch emic disease without significant change since prior. KATIA DAVID MD Jamie Gates MD IMG MRI ORDERABLES (ABNORMAL) Basic metabolic panel (11/15/2017 6:37 AM TILE DESIGNER) Analysis Performed At Patho logist Time Signature Sodium 141 133 - 144 11/15/2017 [facility] mmol/L 7:04 AM [facility] Potassium 4.1 3.4 - 5.3 11/15/2017 [facility] mmol/L 7:04 AM [facility] Chloride 109 94 - 109 11/15/2017 [facility] mmol/L 7:04 AM [facility] Carbon Dioxide 25 20 - 32 11/15/2017 [facility] mmol/L 7:04 AM [facility] Anion Gap 7 3 - 14 11/15/2017 [facility] mmol/L 7:04 AM [facility] Glucose 105 (H) 70 - 99 11/15/2017 [facility] mg/dL 7:04 AM [facility] Urea Nitrogen 33 (H) 7 - 30 11/15/2017 [facility] mg/dL 7:04 AM [facility] Creatinine 1.51 (H) 0.66 - 11/15/2017 [facility] 1.25 mg/dL 7:04 AM [facility] GFR Estimate 45 (L) >60 11/15/2017 [facility] mL/min/1.7 7:[address] Comment: Non GFR Calc GFR Estimate If 55 (L) >60 mL/min/1.7m2 11/15/2017 7:04 A [facility] Comment: GFR Calc Calcium 8.8 8.5 - 10.1 mg/dL 11/15/2017 7:04 AM [facility] Specimen Anatomical Collection Method Collection Time Receive d Time (Source) Location / / Volume Laterality Blood specimen 11/15/2017 6:37 AM 018 6:38 (specimen) TILE DESIGNER AM TILE DESIGNER Jamie Gates MD LAB - BLOOD ORDERABLES Performing Organization Address City/State/ZIP Code Phon e Number [facility] [address] [address] [facility] [address] [phone] EKG 12-lead, tracing only (11/15/2017 2:08 AM TILE DESIGNER) [facility] gist Method Time Signature Interpretation ECG Click View RADIOLOGY Image link RESULTS to view waveform and result Specimen (Source) Anatomical Collection Method Collection Time Re ceived Time Location / / Volume Laterality 11/15/2017 2:08 AM TILE DESIGNER Jamie Gates MD ECG ORDERABLES Performing Organization Address City/[facility]/ZIP Code Phon e Number RADIOLOGY RESULTS CT Head w Contrast (11/14/2017 11:58 PM TILE DESIGNER) Anatomical Region Laterality Modality Head, NEURO, SUBRAD CT NEURO, SUBRAD CT NEURO, UMP CT Computed Tomography NEURO, RAD CT Specimen (Source) Anatomical Location Collection Method / Collectio n Time Received Time / Laterality Volume Impressions 11/15/2017 8:18 AM TILE DESIGNER IMPRESSION: 1. Patent arteries in the neck without e vidence of dissection. Atherosclerotic calcifications at the ca rotid bifurcations bilaterally without significant stenosis by NASCET branden argueta. Mild narrowing at the origin of the right vertebral artery. 2. Focal 4 mm short segment of severe st enosis/near occlusion of the proximal left P2 segment with a widely p atent distal P2 artery. 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 The remaining major intracranial arteries appear patent with out vascular cutoff. No other significant intracranial stenosis. No an eurysm identified. 3. Unremarkable CT perfusion images of t he head. I agree with the overnight preliminary r eport by the radiologist. KATIA DAVID MD Narrative 11/15/2017 8:[address] ANGIOGRAM OF THE HEAD AND NECK WITH CONTRAST ??11/14/2017 11:53 PM HISTORY: Code stroke. TECHNIQUE: ??CT angiography with an inje ction of 120 mL Isovue-370 IV with scans through the head and neck. ?? Images were transferred to a separate 3-D workstation where multiplan ar reformations and 3-D images were created. ??Estimates of carotid stevenson noses are made relative to the distal internal carotid artery diameters except as noted. Radiation dose for this scan was reduced using aut omated exposure control, adjustment of the mA and/or kV according to patient size, or iterative reconstruction technique. ??Perfusion sc ans were performed at three levels with injection of an additional 4 0 mL IV nonionic contrast and 20 mL saline flush. ??These images were processed on a separate 3-D workstation. COMPARISON: None. CT HEAD FINDINGS: ??No contrast enhancin g lesions. ?? Head CT perfusion images are unremarkable. CT ANGIOGRAM HEAD FINDINGS: ??There is a short 4 mm segment of nonopacification of the proximal left P2 segment. The distal P2 artery is widely patent. Favor that this repres ents a chronic stenosis. The other major intracranial arteries includ ing the proximal branches of the anterior cerebral and middle cerebra l arteries appear patent without vascular cutoff. No aneurysm rosanne ntified. There is atherosclerotic calcification of the cav ernous and supraclinoid internal carotid arteries without signif icant stenosis. ??Venous circulation is unremarkable. CT ANGIOGRAM NECK FINDINGS: ??Scattered atherosclerotic calcification in the aortic arch without significant s tenosis at the origins of the great vessels. Right carotid artery: The right common a nd internal carotid arteries are patent. ??Atherosclerotic calcificat ions at the carotid bifurcation without significant stenosis by NASCET c riteria. ?? Left carotid artery: The left common and internal carotid arteries are patent. ??Atherosclerotic calcifications at the carotid bifurcation without significant stenosis by NASCET c riteria. ?? Vertebral arteries: ??Vertebral arteries are patent without evidence of dissection. ??Mild narrowing at the orig in of the right vertebral artery. ?? Other findings: There are postoperative changes of anterior cervical spine fusion from C4 to C6. Procedure Note Katia David MD - 11/15/2017 CT ANGIOGRAM OF THE HEAD AND NECK WITH Branden CARL 11/14/2017 11:53 PM HISTORY: Code stroke. TECHNIQUE: CT angiography with an inject ion of 120 mL Isovue-370 IV with scans through the head and neck. Im ages were transferred to a separate 3-D workstation where multiplan ar reformations and 3-D images were created. Estimates of carotid steno ses are made relative to the distal internal carotid artery diameters except as noted. Radiation dose for this scan was reduced using aut omated exposure control, adjustment of the mA and/or kV according to patient size, or iterative reconstruction technique. Perfusion scan s were performed at three levels with injection of an additional 4 0 mL IV nonionic contrast and 20 mL saline flush. These images were pr ocessed on a separate 3-D workstation. COMPARISON: None. CT HEAD FINDINGS: No contrast enhancing lesions. Head CT perfusion images are unremarkable. CT ANGIOGRAM HEAD FINDINGS: There is a s hort 4 mm segment of nonopacification of the proximal left P2 segment. The distal P2 artery is widely patent. Favor that this repres ents a chronic stenosis. The other major intracranial arteries includ ing the proximal branches of the anterior cerebral and middle cerebra l arteries appear patent without vascular cutoff. No aneurysm rosanne ntified. There is atherosclerotic calcification of the cav ernous and supraclinoid internal carotid arteries without signif icant stenosis. Venous circulation is unremarkable. CT ANGIOGRAM NECK FINDINGS: Scattered at herosclerotic calcification in the aortic arch without significant s tenosis at the origins of the great vessels. Right carotid artery: The right common a nd internal carotid arteries are patent. Atherosclerotic calcificatio ns at the carotid bifurcation without significant stenosis by NASCET c riteria. Left carotid artery: The left common and internal carotid arteries are patent. Atherosclerotic calcifications a t the carotid bifurcation without significant stenosis by NASCET c riteria. Vertebral arteries: Vertebral arteries a re patent without evidence of dissection. Mild narrowing at the origin of the right vertebral artery. Other findings: There are postoperative changes of anterior cervical spine fusion from C4 to C6. IMPRESSION: 1. Patent arteries in the neck without e vidence of dissection. Atherosclerotic calcifications at the ca rotid bifurcations bilaterally without significant stenosis by NASCET c riteria. Mild narrowing at the origin of the right vertebral artery. 2. Focal 4 mm short segment of severe st enosis/near occlusion of the proximal left P2 segment with a widely p atent distal P2 artery. 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 The remaining major intracranial arteries appear patent with out vascular cutoff. No other significant intracranial stenosis. No an eurysm identified. 3. Unremarkable CT perfusion images of t he head. I agree with the overnight preliminary r eport by the radiologist. KATIA DAVID MD Jamie Gates MD IMG CT ORDERABLES CTA Angiogram Head Neck (11/14/2017 11:53 PM TILE DESIGNER) Anatomical Region Laterality Modality Head, SUBRAD CT NEURO, SUBRAD CT NEURO, UMP CT NEURO, Computed Tomography RAD CT Specimen (Source) Anatomical Location Collection Method / Collectio n Time Received Time / Laterality Volume Impressions 11/15/2017 8:18 AM TILE DESIGNER IMPRESSION: 1. Patent arteries in the neck without e vidence of dissection. Atherosclerotic calcifications at the ca rotid bifurcations bilaterally without significant stenosis by NASCET branden argueta. Mild narrowing at the origin of the right vertebral artery. 2. Focal 4 mm short segment of severe st enosis/near occlusion of the proximal left P2 segment with a widely p atent distal P2 artery. 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 The remaining major intracranial arteries appear patent with out vascular cutoff. No other significant intracranial stenosis. No an eurysm identified. 3. Unremarkable CT perfusion images of t he head. I agree with the overnight preliminary r eport by the radiologist. KATIA DAVID MD Narrative 11/15/2017 8:[address] ANGIOGRAM OF THE HEAD AND NECK WITH CONTRAST ??11/14/2017 11:53 PM HISTORY: Code stroke. TECHNIQUE: ??CT angiography with an inje ction of 120 mL Isovue-370 IV with scans through the head and neck. ?? Images were transferred to a separate 3-D workstation where multiplan ar reformations and 3-D images were created. ??Estimates of carotid stevenson noses are made relative to the distal internal carotid artery diameters except as noted. Radiation dose for this scan was reduced using aut omated exposure control, adjustment of the mA and/or kV according to patient size, or iterative reconstruction technique. ??Perfusion sc ans were performed at three levels with injection of an additional 4 0 mL IV nonionic contrast and 20 mL saline flush. ??These images were processed on a separate 3-D workstation. COMPARISON: None. CT HEAD FINDINGS: ??No contrast enhancin g lesions. ?? Head CT perfusion images are unremarkable. CT ANGIOGRAM HEAD FINDINGS: ??There is a short 4 mm segment of nonopacification of the proximal left P2 segment. The distal P2 artery is widely patent. Favor that this repres ents a chronic stenosis. The other major intracranial arteries includ ing the proximal branches of the anterior cerebral and middle cerebra l arteries appear patent without vascular cutoff. No aneurysm rosanne ntified. There is atherosclerotic calcification of the cav ernous and supraclinoid internal carotid arteries without signif icant stenosis. ??Venous circulation is unremarkable. CT ANGIOGRAM NECK FINDINGS: ??Scattered atherosclerotic calcification in the aortic arch without significant s tenosis at the origins of the great vessels. Right carotid artery: The right common a nd internal carotid arteries are patent. ??Atherosclerotic calcificat ions at the carotid bifurcation without significant stenosis by NASCET c riteria. ?? Left carotid artery: The left common and internal carotid arteries are patent. ??Atherosclerotic calcifications at the carotid bifurcation without significant stenosis by NASCET c riteria. ?? Vertebral arteries: ??Vertebral arteries are patent without evidence of dissection. ??Mild narrowing at the orig in of the right vertebral artery. ?? Other findings: There are postoperative changes of anterior cervical spine fusion from C4 to C6. Procedure Note Katia David MD - 11/15/2017 CT ANGIOGRAM OF THE HEAD AND NECK WITH Branden CARL 11/14/2017 11:53 PM HISTORY: Code stroke. TECHNIQUE: CT angiography with an inject ion of 120 mL Isovue-370 IV with scans through the head and neck. Im ages were transferred to a separate 3-D workstation where multiplan ar reformations and 3-D images were created. Estimates of carotid steno ses are made relative to the distal internal carotid artery diameters except as noted. Radiation dose for this scan was reduced using aut omated exposure control, adjustment of the mA and/or kV according to patient size, or iterative reconstruction technique. Perfusion scan s were performed at three levels with injection of an additional 4 0 mL IV nonionic contrast and 20 mL saline flush. These images were pr ocessed on a separate 3-D workstation. COMPARISON: None. CT HEAD FINDINGS: No contrast enhancing lesions. Head CT perfusion images are unremarkable. CT ANGIOGRAM HEAD FINDINGS: There is a s hort 4 mm segment of nonopacification of the proximal left P2 segment. The distal P2 artery is widely patent. Favor that this repres ents a chronic stenosis. The other major intracranial arteries includ ing the proximal branches of the anterior cerebral and middle cerebra l arteries appear patent without vascular cutoff. No aneurysm rosanne ntified. There is atherosclerotic calcification of the cav ernous and supraclinoid internal carotid arteries without signif icant stenosis. Venous circulation is unremarkable. CT ANGIOGRAM NECK FINDINGS: Scattered at herosclerotic calcification in the aortic arch without significant s tenosis at the origins of the great vessels. Right carotid artery: The right common a nd internal carotid arteries are patent. Atherosclerotic calcificatio ns at the carotid bifurcation without significant stenosis by NASCET c riteria. Left carotid artery: The left common and internal carotid arteries are patent. Atherosclerotic calcifications a t the carotid bifurcation without significant stenosis by NASCET c riteria. Vertebral arteries: Vertebral arteries a re patent without evidence of dissection. Mild narrowing at the origin of the right vertebral artery. Other findings: There are postoperative changes of anterior cervical spine fusion from C4 to C6. IMPRESSION: 1. Patent arteries in the neck without e vidence of dissection. Atherosclerotic calcifications at the ca rotid bifurcations bilaterally without significant stenosis by NASCET c riteria. Mild narrowing at the origin of the right vertebral artery. 2. Focal 4 mm short segment of severe st enosis/near occlusion of the proximal left P2 segment with a widely p atent distal P2 artery. 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 The remaining major intracranial arteries appear patent with out vascular cutoff. No other significant intracranial stenosis. No an eurysm identified. 3. Unremarkable CT perfusion images of t he head. I agree with the overnight preliminary r eport by the radiologist. KATIA DAVID MD Jamie Gates MD IMG CT ORDERABLES CT Head w/o Contrast (11/14/2017 11:39 PM TILE DESIGNER) Anatomical Region Laterality Modality Head, SUBRAD CT NEURO, SUBRAD CT NEURO, UMP CT NEURO, Computed Tomography RAD CT Specimen (Source) Anatomical Location Collection Method / Collectio n Time Received Time / Laterality Volume Impressions 11/15/2017 8:18 AM TILE DESIGNER IMPRESSION: ?? 1. No evidence of acute intracranial hem orrhage, mass, or herniation. 2. There is generalized atrophy of the b rain. White matter changes are present in the cerebral hemispheres that are consistent with small vessel ischemic disease in this age angela ent. I agree with the overnight preliminary r eport by the radiologist. KATIA DAVID MD Narrative 11/15/2017 8:[address] SCAN OF THE HEAD WITHOUT CONTRAST ?? 11/14/2017 11:39 PM HISTORY: Code stroke. TECHNIQUE: ??Axial images of the head an d coronal reformations without IV contrast material. Radiation dose for this scan was reduced using automated exposure control, adjustment o f the mA and/or kV according to patient size, or iterative reconstruc tion technique. COMPARISON: Brain MR 05/09/2017. FINDINGS: There is no evidence of intrac ranial hemorrhage, mass, or anomaly. There is generalized atrophy of the brain. There is low attenuation in the white matter of the c erebral hemispheres consistent with sequelae of small vessel ischemic d isease. The visualized portions of the sinuses a nd mastoids appear normal. The bony calvarium and bones of the skull ba se appear intact. Procedure Note Katia David MD - 11/15/2017 CT SCAN OF THE HEAD WITHOUT CONTRAST 10/20 11:39 PM HISTORY: Code stroke. TECHNIQUE: Axial images of the head and coronal reformations without IV contrast material. Radiation dose for this scan was reduced using automated exposure control, adjustment o f the mA and/or kV according to patient size, or iterative reconstruc tion technique. COMPARISON: Brain MR 05/09/2017. FINDINGS: There is no evidence of intrac ranial hemorrhage, mass, or anomaly. There is generalized atrophy of the brain. There is low attenuation in the white matter of the c erebral hemispheres consistent with sequelae of small vessel ischemic d isease. The visualized portions of the sinuses a nd mastoids appear normal. The bony calvarium and bones of the skull ba se appear intact. IMPRESSION: 1. No evidence of acute intracranial hem orrhage, mass, or herniation. 2. There is generalized atrophy of the b rain. White matter changes are present in the cerebral hemispheres that are consistent with small vessel ischemic disease in this age angela ent. I agree with the overnight preliminary r eport by the radiologist. KATIA DAVID MD Jamie Gates MD IMG CT ORDERABLES Troponin I (11/14/2017 11:29 PM TILE DESIGNER) athologist Signature Troponin I ES <0.015 0.000 - 11/14/2017 [place] 0.045 ug/L 11:53 PM [facility] Comment: The 99th percentile for upper reference range is 0.045 ug/L. ??Troponin values in the range of 0.045 - 0.120 ug/L may b e associated with risks of adverse clinical events. Specimen Anatomical Collection Method Collection Time Receive d Time (Source) Location / / Volume Laterality 11/14/2017 11:29 11/14/2017 PM TILE DESIGNER 11:31 PM TILE DESIGNER Damian Mark MD LAB - BLOOD ORDERABLES Performing Organization Address City/[facility]/ZIP [facility] Phon e [facility] [address], [place] [address] [place] [address] [address] [place] [address], [facility] [phone] Partial thromboplastin time (11/14/2017 11:29 PM TILE DESIGNER) athologist Signature PTT 30 22 - 37 sec 11/14/2017 [facility] 11:45 PM TILE DESIGNER [facility] Specimen Anatomical Collection Method Collection Time Receive d Time (Source) Location / / Volume Laterality 11/14/2017 11:29 11/14/2017 PM TILE DESIGNER 11:31 PM TILE DESIGNER Damian Mark MD LAB - BLOOD ORDERABLES Performing Organization Address City/[facility]/ZIP [facility] Phon e Number [facility] [address], [place] [address] [place] [address] [address] [place] [address], [facility] [phone] INR (11/14/2017 11:29 PM TILE DESIGNER) athologist Signature INR 0.96 0.86 - 1.14 11/14/2017 [facility] 11:45 PM [facility]LE DES[facility]ER [facility]PITAL Specimen Anatomical Collection Method Collection Time Receive d Time (Source) Location / / Volume Laterality 11/14/2017 11:29 11/14/2017 PM TILE DESIGNER 11:31 PM TILE DESIGNER Damian Mark MD LAB - BLOOD ORDERABLES Performing Organization Address City/State/ZIP Code Phon e Number [place] [address] [address], [place] [address] [facility] [address] [place], [place] [address], [facility] [phone] (ABNORMAL) CBC with platelets differential (11/14/2017 11:29 PM [facility]) [facility] gist Method Time Signature WBC 6.1 4.0 - 11/14/2017 [facility] 11.0 11:34 PM [facility] 10e9/L [facility] RBC Count 4.23 (L) 4.4 - 5.9 11/14/2017 [facility] 10e12/L 11:34 PM [facility] Hemoglobin 13.7 13.3 - 11/14/2017 [facility] 17.7 g/dL 11:34 PM [facility] Hematocrit 41.0 40.0 - 11/14/2017 [facility] 53.0 % 11:34 PM [facility] MCV 97 78 - 100 11/14/2017 [facility] fl 11:34 PM [facility] MCH 32.4 26.5 - 11/14/2017 [facility] 33.0 pg 11:34 [facility] MCHC 33.4 31.5 - 11/14/2017 [facility] 36.5 g/dL 11:34 [facility] RDW 12.9 10.0 - 11/14/2017 [facility] 15.0 % 11:34 PM [facility] Platelet Count 122 (L) 150 - 450 11/14/2017 [facility] 10e9/L 11:34 PM [facility] Diff Method Automated 11/14/2017 [facility] Method 11:34 PM [facility] % Neutrophils 57.3 % 11/14/2017 [facility] 11:34 PM [facility] % Lymphocytes 27.8 % 11/14/2017 [facility] 11:34 [facility] % Monocytes 11.3 % 11/14/2017 [facility] 11:34 [facility] % Eosinophils 3.1 % 11/14/2017 [facility] 11:34 PM [facility] % Basophils 0.3 % 11/14/2017 [facility] 11:34 PM [facility] % Immature 0.2 % 11/14/2017 [facility] Granulocytes 11:34 PM [facility] Nucleated RBCs 0 0 /100 11/14/2017 [facility] 11:34 PM [facility] Absolute 3.5 1.6 - 8.3 11/14/2017 [facility] Neutrophil 10e9/L 11:34 PM [facility] Absolute 1.7 0.8 - 5.3 11/14/2017 [facility] Lymphocytes 10e9/L 11:34 PM [facility] Absolute 0.7 0.0 - 1.3 11/14/2017 [facility] Monocytes 10e9/L 11:34 PM [facility] Absolute 0.2 0.0 - 0.7 11/14/2017 [facility] Eosinophils 10e9/L 11:34 PM [facility] Absolute 0.0 0.0 - 0.2 11/14/2017 [facility] Basophils 10e9/L 11:34 PM [facility] Abs Immature 0.0 0 - 0.4 11/14/2017 [facility] Granulocytes 10e9/L 11:34 PM [facility] Absolute 0.0 11/14/2017 [facility] Nucleated RBC 11:34 PM [facility] Specimen Anatomical Collection Method Collection Time Receive d Time (Source) Location / / Volume Laterality 11/14/2017 11:29 11/14/2017 PM TILE DESIGNER 11:31 PM TILE DESIGNER Damian Mark MD LAB - BLOOD ORDERABLES Performing Organization Address City/State/ZIP Code Phon e Number [place] [address] [address] [place] [address] [facility] [address] [phone] (ABNORMAL) Basic metabolic panel (11/14/2017 11:29 PM TILE DESIGNER) Analysis Performed At Patho logist Time Signature Sodium 141 133 - 144 11/14/2017 [facility] mmol/L 11:53 PM [facility] Potassium 3.7 3.4 - 5.3 11/14/2017 [facility] mmol/L 11:53 PM [facility] Chloride 107 94 - 109 11/14/2017 [facility] mmol/L 11:53 PM [facility] Carbon Dioxide 26 20 - 32 11/14/2017 [facility] mmol/L 11:53 PM [facility] Anion Gap 8 3 - 14 11/14/2017 [place] mmol/L 11:53 PM [facility] Glucose 103 (H) 70 - 99 11/14/2017 [place] mg/dL 11:53 PM [facility] Urea Nitrogen 32 (H) 7 - 30 11/14/2017 [place] mg/dL 11:53 PM [facility] Creatinine 1.67 (H) 0.66 - 11/14/2017 [place] 1.25 mg/dL 11:53 PM [facility] GFR Estimate 40 (L) >60 11/14/2017 [place] mL/min/1.7 11:[address] Comment: Non GFR Calc GFR Estimate If 49 (L) >60 mL/min/1.7m2 11/14/2017 11:53 PM [facility] Comment: GFR Calc Calcium 8.9 8.5 - 10.1 mg/dL 11/14/2017 11:53 PM [facility] Specimen Anatomical Collection Method Collection Time Receive d Time (Source) Location / / Volume Laterality 11/14/2017 11:29 11/14/2017 PM TILE DESIGNER 11:31 PM TILE DESIGNER Damian Mark MD LAB - BLOOD ORDERABLES Performing Organization Address City/State/ZIP Code Phon e Number [place] [address] [phone] EKG 12 lead (11/14/2017 11:22 PM TILE DESIGNER) [facility] Method Time Signature Interpretation ECG Click View RADIOLOGY Image link RESULTS to view waveform and result Specimen (Source) Anatomical Collection Method Collection Time Re ceived Time Location / / Volume Laterality 11/14/2017 11:22 PM TILE DESIGNER Damian Mark MD ECG ORDERABLES Performing Organization Address City/State/ZIP [facility] Phon e Number RADIOLOGY RESULTS documented in this encounter Visit Diagnoses Diagnosis Transient cerebral ischemia, unspecified type - Primary Weakness on right side of face Uncontrolled hypertension Unspecified essential hypertension TIA (transient ischemic attack) Unspecified transient cerebral ischemia documented in this encounter Administered Medications Inactive Administered Medications - up to 3 most recent administrations Medication Order MAR Action Action Date Dose Rate Site 0.9% sodium chloride BOLUS New Bag 11/14/2017 11:48 PM TILE DESIGNER 80 mLs Intravenous, 1,000 mL, ONCE, On 11/14/17 at 2330, For 1 dose acetaminophen (TYLENOL) tablet 1,000 mg Given 11/15/2017 1:11 AM TILE DESIGNER 1,000 mg 1,000 mg, Oral, ONCE, On 11/15/17 at 0054, For 1 dose, Maximum acetaminophen dose from all sources = 75 mg/kg/day not to exceed 4 gram acetaminophen (TYLENOL) tablet 650 mg Given 11/15/2017 6:11 AM TILE DESIGNER 650 mg 650 mg, Oral, EVERY 4 HOURS PRN, mild pain, Starting on 11/15/17 at 0204, Alternate ibuprofen (if ordered) with acetaminophen. Maximum acetaminophen dose from all sources = 75 mg/kg/day not to exceed 4 grams/day. gadobutrol (GADAVIST) injection 10 mL Given 11/15/2017 8:30 AM TILE DESIGNER 10 mLs 10 mL, Intravenous, ONCE, On 11/15/17 at 0805, For 1 dose, Supplied by, and administered by MRI. iopamidol (ISOVUE-370) solution 500 mL Given 11/14/2017 11:48 PM TILE DESIGNER 120 mLs 500 mL, Intravenous, ONCE, On 11/14/17 at 2330, For 1 dose lisinopril (PRINIVIL/ZESTRIL) tablet 5 m g 5 mg, Oral, DAILY, First dose on 11/15/17 at 1102, Hold for SBP < 100 LORazepam (ATIVAN) injection 0.5-1 mg Given 11/15/2017 8:20 AM TILE DESIGNER 0.5 mg 0.5-1 mg, Intravenous, ONCE, On 11/15/17 at 0804, For 1 dose, For MRI For IV PUSH: Dilute with equal volume of NS. For ordered doses up to 4 mg give IV Push. Administer each 2mg over 1-5 minutes. ondansetron (ZOFRAN) injection 4 mg 4 mg, Intravenous, EVERY 6 HOURS PRN, nausea, vomiting , Administer over 2-5 Minutes, Starting on 11/15/17 at 0204, This is Step 1 of nausea and vomiting management. If nausea not resolved in 15 minutes, go t o Step 2 prochlorperazine (COMPAZINE). Irritant. For ordered doses up to 4 mg, give IV Push undiluted over 2-5 minutes. ondansetron (ZOFRAN-ODT) ODT tab 4 mg 4 mg, Oral, EVERY 6 HOURS PRN, nausea, v omiting, Starting on 11/15/17 at 0204, This is Step 1 of nausea and [...] swallow with saliva; liquid not required . documented in this encounter Active and Recently Administered Medications Times are shown in TILE DESIGNER. Scheduled Medication Order 11/13/2017 11/14/2017 11/15/2017 0.9% sodium chloride BOLUS (COMPLETED) 2 348 (New Bag - Provider: Fay Beltrán)2352 (Stopped - Provider: Fay Beltrán) Intravenous, 1,000 mL, ONCE, 11/14/17 at 2330, For 1 dose acetaminophen (TYLENOL) tablet 1,000 mg (COMPLETED) 0111 (Given - Provider: Awa Ramirez RN) 1,000 mg, Oral, ONCE, 11/15/17 at 005 4, For 1 dose, Maximum acetaminophen dose from all sources = 75 mg/kg/day not to exceed 4 gram aspirin chewable tablet 81 mg 11 23 (Not Given - Provider: Ca Major, JOSE - Reason: Patient/family refused) 81 mg, Oral, DAILY, First dose on 11/15/17 at 0800 atorvastatin (LIPITOR) tablet 40 mg 1124 (Not Given - Provider: Ca Major RN - Reason: Patient/family refused) 40 mg, Oral, DAILY, First dose on 11/15/17 at 0800 gadobutrol (GADAVIST) injection 10 mL (COMPLETED) 0830 (Given - Provider: Albina Simmons) 10 mL, Intravenous, ONCE, 11/15/17 at 0805, For 1 dose, Supplied by, and administered by MRI. iopamidol (ISOVUE-370) solution 500 mL (COMPLETED) 2348 (Given - Provider: Fay Beltrán - Comment: Bulk) 500 mL, Intravenous, ONCE, 11/14/17 at 2330, For 1 dose lisinopril (PRINIVIL/ZESTRIL) tablet 5 mg 1102 (Canceled Entry - Provider: Orders Generic Provider - Comment: Automatically canceled at discontinue of medication order) 5 mg, Oral, DAILY, First dose on 11/15/17 at 1102, Hold for S BP < 100 LORazepam (ATIVAN) injection 0.5-1 mg (COMPLETED) 0820 (Given - Provider: Ca Major RN) 0.5-1 mg, Intravenous, ONCE, 11/15/17 at 0804, For 1 dose, For MRI For IV PUSH: Dilute with equal volume of NS. For ordered doses up to 4 mg give IV Push. Administer each 2mg over 1-5 minutes. metoprolol tartrate (LOPRESSOR) tablet 50 mg 1124 (Not Given - Provider: Ca Major RN - Reason: Patient/family refused) 50 mg, Oral, 2 TIMES DAILY, First dose on 11/15/17 at 0800 PRN Medication Order 11/13/2017 11/14/2017 11/15/2017 acetaminophen (TYLENOL) Suppository 650 mg 650 mg, Rectal, EVERY 4 HOURS PRN, mild pain, Starting 11/15/17 at 0204, Alternate ibuprofen (if ordered) with acetaminophen. Maximum acetaminophen dose from all sources = 75 mg/kg/day not to exceed 4 grams/day. acetaminophen (TYLENOL) tablet 650 mg 0611 (Given - Provider: Debra Araujo RN) 650 mg, Oral, EVERY 4 HOURS PRN, mild pa in, Starting 11/15/17 at 0204, Alternate ibuprofen (if ordered) with acetaminophen. Maximum acetaminophen dose from all sources = 75 mg/kg/day not to exceed 4 grams/day. melatonin tablet 1 mg 1 mg, Oral, AT BEDTIME PRN, sleep, Start ing 11/15/17 at 0204, Do not give unless at least 6 hours of uninterrupted sleep is expected. naloxone (NARCAN) injection 0.1-0.4 mg 0.1-0.4 mg, Intravenous, EVERY 2 MIN PRN , opioid reversal, Starting 11/15/17 at 0204, For respiratory rate LESS than or EQUAL to 8. Partial reversal dose: 0.1 mg titrated q 2 minutes for Analgesia Si de Effects Monitoring Sedation Level of 3 (frequently drowsy, arousable, drifts to sleep during conversation).Full reversal dose: 0.4 mg bolus for Analgesia Side Effects Monitoring Sedation Level of 4 ( somnolent, minimal or no response to sti mulation). For ordered doses up to 2mg give IVP. Give each 0.4mg over 15 seconds in emergency situations. For non- emergent situations further dilute in 9mL of NS to facilitate titration of response. ondansetron (ZOFRAN) injection 4 mg(Linked Group 1) 4 mg, Intravenous, EVERY 6 HOURS PRN, na usea, vomiting, Administer over 2-5 Minutes, Starting 11/15/17 at 0204, This is Step 1 of nausea and vomiting management. If nausea not resolved in 15 minutes, go to Step 2 prochlorperazine (COMPAZIN E). Irritant. For ordered doses up to 4 mg, give IV Push undiluted over 2-5 minutes. ondansetron (ZOFRAN-ODT) ODT tab 4 mg(Linked Group 1) 4 mg, Oral, EVERY 6 HOURS PRN, nausea, v omiting, Starting 11/15/17 at 0204, This is Step 1 of nausea and [...] then swallow with saliva; liquid not required. Linked Groups Order Group 1: ondansetron (ZOFRAN-ODT) ODT tab 4 mgJump to med 4 mg, Oral, EVERY 6 HOURS PRN, nausea, v omiting, Starting 11/15/17 at 0204
This is Step 1 of nausea and [...] usea, vomiting, Administer over 2-5 Minutes, Starting 11/15/17 at 0204
This is Step 1 of nausea and vomiting management. If nausea not resolved in 15 minutes, go to Step 2 prochlorperazine (COMPAZINE). Irritant. For ordered doses up to 4 mg, give IV Push undiluted over 2-5 minutes.
documented in this encounter Care Teams Bakelite Molder Relationship Specialty Start Date End Date Bandar, Kehinde Portillofield PCP - General 05/12/[address] [place] [address] documented as of this encounter
--- OUTSIDE RECORDS SUMMARY | 2022-05-28 05:05 | XMS_ITS | Encounter Summary ---
:1940 Author Organization [place] Address [facility] [place] [address] Care Team Providers Name Role Phone [facility], [facility] Primary Care Provider [phone] Reason for Referral - Closed Specialty Diagnoses / Procedures Referred By Contact Refer red To Contact Diagnoses Paroxysmal atrial fibrillation (H) Radha Galan MD Procedures Zio Patch Monitor [address] [place] [address] Referral ID Status Reason Start Date Expiration Date Visits Requ ested Visits Authorized [id number] Closed 11/25/2017 11/25/2018 1 1 TREATER HEAD Reason for Visit Reason Comments Atrial Fib new Dx - Closed Specialty Diagnoses / Procedures Referred By Contact Refer red To Contact Diagnoses Paroxysmal atrial fibrillation (H) Radha Galan MD [address] [place] [address] Referral ID Status Reason Start Date Expiration Date Visits Requ ested Visits Authorized [id number] Closed 06/11/2017 06/11/2018 1 1 Encounter Details Date Type Department Care Team Description 11/11/2017 Office Visit [facility] Radha Galan [facility] Tram WELSH fibrillation (H) [address] [facility] [address] [place] [address] [place] [address] [phone] Social History Tobacco Use Types Packs/Day Years [...] Sign Reading Time Taken Comments Blood Pressure 146/78 11/11/2017 8:56 AM HEAT TREATER HEAD Pulse 54 11/11/2017 8:56 AM HEAT TREATER HEAD Temperature - - Respiratory Rate - - Oxygen Saturation - - Inhaled Oxygen Concentration - - Weight 88 kg (194 lb) 11/11/2017 8:56 AM HEAT TREATER HEAD Height 170.2 cm (5' 7.01) 11/11/2017 8:56 AM HEAT TREATER HEAD Body Mass Index 30.38 11/11/2017 8:56 AM HEAT TREATER HEAD documented in this encounter Progress Notes aRdha Galan MD - 11/11/2017 10:26 AM CST Service Date: 11/11/2017 HISTORY OF PRESENT ILLNESS: It was my pleasure to see Mr. Hendricks today whom I had the pleasure meeting for the first time when he was hospitalized this past April. As you may recall, the patient was noted to have some mental status changes from accidental overdose of his opioid. He subsequently was noted to have paroxysmal atrial tachycardia coupled with some sinus pauses and eventually developed atrial flutter, appeared to be quite typical, and then atrial fibrillation. His LV function was normal and he was loaded with amiodarone. 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 Given the fact the he was in atrial tachyarrhythmias, the source could be cardiac embolic and I recommended the patient to be on anticoagulation. However, the neurologist at that time was convinced that it was hypoxemia induced and therefore did not recommend anticoagulation. He was discharged on amiodarone and did see a land economist over at [facility] for followup. He was recommended to wear a 24-hour Holter monitoring which demonstrated no evidence of atrial tachyarrhythmias. The patient checked his blood pressure twice a day and noticed heart rate in the 50s. He is doing quite well otherwise. Denies any shortness of breath, orthopnea, PND. His blood pressureseemed to be difficult to control and has seen a credentialing assistant for that as well as for his rising creatinine. We discussed at length about the rationale of why I recommended anticoagulation for him in the firstplace given that I could not rule out the fact that it was a cardiac embolic event, especially with multiple areas affected in the brain. For now, I would like the patient to stop his amiodarone and reassess with a 2-week Zio Patch monitor in a couple weeks' time and also encourage him to continue to check his pulse on a daily basis. It is unclear whether his atrial tachyarrhythmias were a one-time finding occurring in the context of him being ill or if patient had been having intermittent subclinical episodes. There is always a small risk of major bleeding with anticoagulation as well and for now, we should compromise by not having him on anticoagulation until we document recurrence of his atrialtachyarrhythmias. If it is indeed atrial flutter, I would recommend ablation at that time. The patient has sinus bradycardia per history, and from EKG today, he does have a lot of artifacts, that I would leave it alone for now in the absence of any symptoms. At this point in time, I will have him continue with metoprolol which can be helpful to reduce the progression of his AAA as well withthe latest measurement of about 4.5 cm. The patient can come back to see us in a year in [email or web address] to his convenience, as the patient does live in that area. We will notify the patient regarding results of the Zio Patch monitor and have him follow up with you or my partners in a year from now. RADHA GALAN MD MT: SEMAJ Name: SPEEDY HENDRICKS Account: [id number] : 1940 Service Date: 11/11/2017 Document: [id number] TREATER HEAD Radha Galan MD - 11/11/2017 8:45 AM CST HPI and Plan: See dictation [id number] Orders Placed This Encounter Procedures ??? EKG 12-lead complete w/read - Clinics (performed today) ??? Zio Patch Monitor No orders of the defined types were placed in this encounter. Medications Discontinued During This Encounter Medication Reason ??? HYDRALAZINE HCL PO Discontinued by another Health Care Provider ??? amiodarone (PACERONE/CODARONE) 200 MG tablet Encounter Diagnosis Name Primary? Paroxysmal atrial fibrillation (H) CURRENT MEDICATIONS: Current Outpatient Prescriptions Medication Sig Dispense Refill ??? FUROSEMIDE PO Take 20 mg by mouth daily ??? Acetaminophen (TYLENOL PO) Take 650 mg by mouth as needed ??? atorvastatin (LIPITOR) 40 MG tablet Take 1 tablet (40 mg) by mouth daily 30 tablet 0 ??? ASPIRIN PO Take 81 mg by mouth daily ??? TERAZOSIN HCL PO Take 5 mg by mouth At Bedtime ??? METOPROLOL TARTRATE PO Take 50 mg by mouth 2 times daily. ALLERGIES Allergies Allergen Reactions ??? Novocain [Procaine Hcl] Bumps in throat ??? Penicillins Rash PAST MEDICAL HISTORY: Past Medical History: Diagnosis Date ??? AAA (abdominal aortic aneurysm) (H) ??? Arthritis neck ??? Atrial tachycardia (H) 04/2017 nonsustained ??? Basal cell carcinoma ??? 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 Chronic pain lumbar back ??? CKD (chronic kidney disease) stage 3 ??? Hypertension ??? Opioid overdose 04/2017 ??? JACKSON (obstructive sleep apnea) PAST SURGICAL HISTORY: Past Surgical History: Procedure Laterality Date ??? [...] left lung surg decortifcation ??? wisdom teeth[ FAMILY HISTORY: History reviewed. No pertinent family history. SOCIAL HISTORY: Social History Social History ??? Marital status: Spouse name: N/A ??? Number of children: N/A ??? Years of education: N/A Social History Main Topics ??? Smoking status: Former Smoker ??? Smokeless tobacco: Never Used Comment: quit 1984 ??? Alcohol use Yes Comment: 10 per week ??? Drug use: No ??? Sexual activity: Not Asked Other Topics Concern ??? None Social History Narrative Review of Systems: Skin: Negative Eyes: Negative ENT: Negative Respiratory: Negative Cardiovascular: exercise intolerance;Positive for;edema Gastroenterology: Negative Genitourinary: not assessed Musculoskeletal: Positive for back pain chronic back pain. Neurologic: Negative Psychiatric: Negative Heme/Lymph/Imm: Negative Endocrine: Negative Physical Exam: Vitals: BP 146/78 Pulse 54 Ht 1.702 m (5' 7.01) Wt 88 kg (194 lb) BMI 30.38 kg/m2 Constitutional: cooperative, alert and oriented, well developed, well nourished, in no acute distress Skin: warm and dry to the touch, no apparent skin lesions or masses noted Head: normocephalic, no masses or lesions Eyes: pupils equal and round, conjunctivae and lids unremarkable, sclera white, no xanthalasma, EOMSintact, no nystagmus Lymph:No Cervical lymphadenopathy present ENT: Neck: carotid pulses are full and equal bilaterally, JVP normal, no carotid bruit Respiratory: normal breath sounds, clear to auscultation, normal A-P diameter, normal symmetry, normal respiratory excursion, no use of accessory muscles Cardiac: regular rhythm, normal S1/S2, no S3 or S4, apical impulse not displaced, no murmurs, gallops or rubs pulses full and equal, no bruits auscultated GI: abdomen soft, non-tender, BS normoactive, no mass, no HSM, no bruits Extremities and Muscular Skeletal: no deformities, clubbing, cyanosis, erythema observed Neurological: no gross motor deficits Psych: Alert and Oriented x 3 CC Radha Van Galan, MD [address] [place] [address] TREATER HEAD documented in this encounter Plan of Treatment Not on filedocumented as of this encounter Procedures Procedure Name Priority Date/Time Associated Diagnosis Comme nts EKG 12-LEAD Routine 11/12/2017 10:13 Paroxysmal atrial Result s for this COMPLETE W/READ - AM HEAT TREATER HEAD fibrillation (H) proced ure are in CLINICS the results section. documented in this encounter Results Zio Patch Monitor (11/22/2017) Narrative [facility] - 11/22/2017 [facility] [address] [facility] [address] [facility] [address] 11/17/2017 Patient: ??Speedy Hendricks Chart: [id number] : ??1940 Age: ??77 year old Sex: ??male Procedure: ??ZioPatch Monitor. Reimbursement Consultant performing hook-up: ??Kiarra Rubalcava Radha Gamboa MD CV CARDIAC SERVICES ORDERABL ES Performing Organization Address City/State/ZIP Code Phon e Number [facility] EKG 12-lead complete w/read - Clinics (performed today) (11/12/2017 10:13 AM HEAT TREATER HEAD) Narrative This result has an attachment that is no t available. Radha Gamboa MD ECG ORDERABLES documented in this encounter Visit Diagnoses Diagnosis Paroxysmal atrial fibrillation (H) Atrial fibrillation Paroxysmal atrial fibrillation (H) Atrial fibrillation documented in this encounter Care Teams Track Manager Relationship Specialty Start Date End Date Clinic, Kehinde Portillofield PCP - General 05/12/[address] [place] [id number] documented as of this encounter
--- OUTSIDE RECORDS SUMMARY | 2022-05-28 05:05 | XMS_ITS | Encounter Summary ---
:1940 Author Organization [facility] [place] [facility] Address [address] [place] [address] Care Team Providers Name Role Phone [facility] Primary Care Provider [phone] Reason for Visit Reason Onset Date Comments Referral 05/14/2017 MTM Encounter Details Date Type Department Care Team Description 05/14/[address] [facility], Kehinde eagle ([place]) Project [address] [address] [phone] (Wo rk) Social History Tobacco Use Types [...] this encounter Miscellaneous Notes Telephone Encounter - CristalAmerica crowley - 05/14/2017 10:56 AM CDT MTM referral from: Transitions of Care (recent hospital discharge or ED visit) MTM referral outreach attempt #1 on May 14, 2017 at 10:56 AM Outcome: Patient is not interested at this time because they are not a [facility] patient, will route to MTM Pharmacist/Provider as an FYI. Thank you for the referral. Juanita Herndon MTM Coordinator documented in this encounter Plan of Treatment Not on filedocumented as of this encounter Visit Diagnoses Not on filedocumented in this encounter Care Teams Hand Tire Trimmer Relationship Specialty Start Date End Date [facility], [facility] PCP - General 05/12/[address] [place] [address] documented as of this encounter
--- OUTSIDE RECORDS SUMMARY | 2022-05-28 05:06 | XMS_ITS | Encounter Summary ---
:1940 Author Organization [place] Address [address] [place] [address]. [place] [address] Care Team Providers Name Role Phone Primary Dr, Unknown MD Primary Care Provider Unavailable Encounter Details Date Type Department Care Team Description 09/30/2012 Anesthesia Event [facility] Viraj Silva PeriOp Letty Tejeda MD [address] [place] [address] ANEST[address] [place] [address] [place], [place] [address] (Wo rk) Anesthesia Record Procedure Summary Procedure Name Responsible Anesthesia Start Anesthesia Stop Time Anesthesiologist Time hardware removel Damian Silva MD 09/30/12 1145 1248 left foot (Left Foot) Events Date Time Event Comment 09/30/2012 1145 An Start 1210 An Tourn Inflated 1211 an donnie now 1217 An Tourn Deflated 1248 An Stop Name Total clindamycin (CLEOCIN) IVPB 900 mg 900 mg midazolam 1 mg/mL 4 mg fentaNYL 50 mcg/mL 50 mcg propofol 10 mg/mL 0 mg propofol 10 mg/mL 155.31 mg LR 400 mL Agents No agents on file. Blood No blood administrations on file. Lines, Drains, and Airways Type Details Placement Removal Peripheral IV 09/30/12; (BUGGY RUNNER); 20 09/30/12 0000 by 09/30/12 14 45 by G; Left; Hand Ron Velasquez Heather Ann, JOSE Manjarrez RN Incision/Surgical Site 09/30/12; 1224; 09/30/12 1224 by 09/29/18 1456 by Left; Foot; Iwona Ruiz RN Kabwe, Hama bwe, RN 09/29/18; 1456 documented in this encounter Social History Tobacco [...] encounter OR Notes Anesthesia Postprocedure Evaluation - Damian Silva MD - 09/30/2012 3:02 PM CST Anesthesia Post-Evaluation Note Patient: Speedy Hendricks Patient Condition Respiratory Function (RR / SpO2 / Airway Patency): Satisfactory Cardiac Function (HR / Rhythm / BP): Satisfactory Mental Status: Satisfactory Temperature: Satisfactory Pain Control: Satisfactory PONV: None or treated Beta-Isa Therapy: given if indicated Blood pressure 120/73, temperature 97.3 ??F (36.3 ??C), temperature source Temporal, resp. rate 16, height 1.702 m (5' 7), weight 92.987 kg (205 lb), SpO2 97.00%. Additional Comments: Doing Well. Euvolemic. AKollitzMD CUTTER HELPER Anesthesia Preprocedure Evaluation - Damian Silva MD - 09/30/2012 10:40 AM CST Anesthesia Evaluation . Pt has had prior anesthetic. No history of anesthetic complications ROS/MED HX Pulmonary: - neg pulmonary ROS Neurologic: - neg neurologic ROS Cardiovascular: (+) hypertension . . METS/Exercise Tolerance: Hematologic: Musculoskeletal: (+) arthritis, GI/Hepatic: - neg GI/hepatic ROS Renal: (+) chronic renal disease type: CRI Pt has no history of transplant Endo: - neg endo ROS Psychiatric: - neg psychiatric ROS Infectious Disease: - neg infectious disease ROS Other: - neg other ROS (+) H/O Chronic Pain, Physical Exam Normal systems: dental Airway Mallampati: II TM distance: >3 FB Dental Cardiovascular Rhythm and rate: regular and normal Pulmonary breath sounds clear to auscultation(-) no rhonchi, no wheezes and no rales Anesthesia Plan ASA Score 3 . Plan for MAC Routine analgesia and antiemetics to be used for post-operative care. Anesthetic plan, risks, benefits and alternatives discussed with: patient or quality assurance representative. Possibility of blood products discussed. History & Physical Review History and physical reviewed; no interval change. . CUTTER HELPER documented in this encounter Miscellaneous Notes Anesthesia Care Transfer Note - Lety Guzman APRN CRNA - 09/30/2012 12:47 PM CST Anesthesia Care Transfer Note Patient: Speedy Hendricks Transferred to: Phase II Patient vital signs: stable Airway: none To phase 2. criteria met. CUTTER HELPER documented in this encounter Plan of Treatment Not on filedocumented as of this encounter Visit Diagnoses Not on filedocumented in this encounter Administered Medications Inactive Administered Medications - up to 3 most recent administrations Medication Order MAR Action Action Date Dose Rate Site clindamycin (CLEOCIN) IVPB 900 mg Given 09/30/2012 11:52 AM CARD CUTTER HELPER 900 mg Routine, 900 mg, Intravenous, EVERY 6 HOURS PRN, Starting on Yesenia 09/30/12 at 1034, Intra-Op Dose. Give every 6 hours while patient in surgery, starting 6 hours after pre-op dose. DO NOT GIVE intra-op dose if CrCl < 10 mL/min (on dialysis). If CrCL < 50 mL/min, double the time interval between doses., Pre-procedure fentaNYL (SUBLIMAZE) injection Given 09/30/2012 12:15 PM CARD CUTTER HELPER 50 mcg PRN, moderate to severe pain, Starting on Yesenia 09/30/12 at 1215, Anesthesia Intra-op lactated ringers infusion New Bag 09/30/2012 11:39 AM CARD CUTTER HELPER mL Intravenous, CONTINUOUS PRN, Anesthesia Intra-op, Starting on Yesenia 09/30/12 at 1139, Until Yesenia 09/30/12 at 1248 midazolam (VERSED) injection Given 09/30/2012 11:54 AM CARD CUTTER HELPER 2 mg PRN, anxiety, Starting on Yesenia 09/30/12 at 1145, Anesthesia Intra-op Given 09/30/2012 11:45 AM CARD CUTTER HELPER 2 mg propofol (DIPRIVAN) Rate/Dose 09/30/2012 12:11 20 mcg/kg/min 11.2 mL /hr injection Change PM CARD CUTTER HELPER CONTINUOUS PRN, Starting on Yesenia 09/30/12 at 1202, Anesthesia Intra-op Rate/Dose Change 09/30/2012 12:04 PM CARD CUTTER HELPER 10 mcg/kg/min 5.6 mL/hr New Bag 09/30/2012 12:02 PM CARD CUTTER HELPER 55 mcg/kg/min 30.7 mL/hr documented in this encounter Care Teams Yeast Washer Relationship Specialty Start Date End Date Primary Dipak Kasper, PCP - General 09/21/1204/18 documented as of this encounter
--- OUTSIDE RECORDS SUMMARY | 2022-05-28 05:06 | XMS_ITS | Encounter Summary ---
:1940 Author Organization [facility] Address [address] [place] [address] Care Team Providers Name Role Phone Unavailable Primary Care Provider Unavailable Encounter Details Date Type Department Care Team Description 08/05/2012 Telephone [facility] Eag Sal Chaparro DPM [address] [address] [place] [address] [place], [place] [address] (Wo rk) Social History Tobacco Use Types Packs/Day Years Used Date Unknown If Ever Smoked Alcohol Use Standard Drinks/Week Comments Not Asked 0 (1 standard drink = 0.6 oz pure alcoho l) Sex Assigned at Date Recorded Not on file documented as of this encounter Miscellaneous Notes Telephone Encounter - Kandy Cain - 08/05/2012 4:42 PM CDT Surgery scheduled. Details confirmed, packet mailed and added to outlook. Date/Time: 09/30/2012 @ 12:50 pm Hospital: [facility] Anesthesia: MAC Surgeon: Juana CourtneyPNomanMNoman Preop:Unknown Consent: Hardware removal left foot Surgeon Procedure Time: 30 min Anesthesia: MAC Location: [facility] Pre-Operative Medications: Clindamycin 900 mg IV pre-op Special Instrumentation: Synthes mini locking plate screw driver trainer Electronically signed by Sal Chaparro DPM Advised NPO after midnight on the day before surgery. Reminded patient to have someone drive them home. Advised to check in 2 hours before scheduled time of surgery. Information packet given. Advised patient to schedule a post-op check within one week. Kandy Cain CMA documented in this encounter Plan of Treatment Not on filedocumented as of this encounter Visit Diagnoses Not on filedocumented in this encounter
--- OUTSIDE RECORDS SUMMARY | 2022-05-28 05:06 | XMS_ITS | Encounter Summary ---
:1940 Author Organization [place] Address [address] [place] [address] Care Team Providers Name Role Phone Primary Dr, Unknown MD Primary Care Provider Unavailable Reason for Visit Reason Onset Date Comments Patient/info Update 10/04/2012 Encounter Details Date Type Department Care Team Description 10/04/2012 Telephone [facility] Sal Chaparro, Patient/info Update Yumiko WELSH MD [address] [facility] [address] [facility] [phone] [place], [place] [id number] (Wo rk) Social History Tobacco Use Types [...] this encounter Miscellaneous Notes Telephone Encounter - Sal Chaparro, DPJami - 10/05/2012 11:14 AM MANAGER ANDROID Spoke w/ pt and we will check him today (10/05/12) @ 11:30 GER ANDROID Telephone Encounter - Amber Mead - 10/04/2012 11:[address] Nesbitt. ALINE [place]. Please read. Message below. Let me know if I can assist at all. Amber Mead CMA ([facility]) GER ANDROID Telephone Encounter - Sandra Melgar - 10/04/2012 10:[address] Nesbitt has placed this rx. Rx faxed. Jaime Melgar CMA ([facility]) GER ANDROID Telephone Encounter - Amber Mead - 10/04/2012 9:19 AM CST 09/30 hardware removal left foot, ingrown toenail right hallux. Recd call from daughter who is a nurse, h/o MRSA 2 years ago when had nail procedure on right great toe. Daughter requesting Vanco. Noted increased redness and pain yesterday while changing dressing. Blood was soaked thru dressing today that she placed last night. Afebrile, but patient feels lousy Spoke with DPM diamond selector, Dr. Green. He recommended Bactrim DS BID x 10 days Called RX into [facility] per patient's daughter request. Called Raquel back and left message on cell phone ([phone]), offered 230 appointment in [place] with Dr. Green if would like. Otherwise, f/u with Dr. Chaparro this week. Patient's daughter is requesting refill of Kosse 5-325 - , can you approve and I can call in? Amber Mead CMA ([facility]) GER ANDROID documented in this encounter Plan of Treatment Not on filedocumented as of this encounter Visit Diagnoses Diagnosis Ingrowing nail - Primary Pain in limb documented in this encounter Care Teams Solid Tire Tuber Machine Operator Relationship Specialty Start Date End Date Primary Dr, Unknown, MD PCP - General 09/21/1204/18 documented as of this encounter
--- OUTSIDE RECORDS SUMMARY | 2022-05-28 05:06 | XMS_ITS | Encounter Summary ---
:1940 Author Organization [place] Address [facility] [place] [address] Care Team Providers Name Role Phone Unavailable Primary Care Provider Unavailable Reason for Visit Reason Comments Surgical Followup 02/06 left foot surgery. Seco nd metatarsal fracture nonunion, left foot Encounter Details Date Type Department Care Team Description 04/30/2011 Office Visit [facility] Yumiko Castellanos DPM (Primary Dx) [address] [phone] [place], [place] [id number] Social History Tobacco Use Types Packs/Day Years Used Date Never Assessed Sex Assigned at Date Recorded Not on file documented as of this encounter Progress Notes Sal Chaparro DPM - 04/30/2011 9:28 AM CDT Subjective: Patient is seen today 11 wks post op from a 1. Hammertoe correction, second toe, left foot. 2. Nonunion takedown, debridement and bone grafting second metatarsal, left foot. 3. Surgical matrixectomy, right great toenail. . Patient is doing well, admits compliance, denies fevers, chills, nausea or vomiting. Continues to use CAM boot on lt. Pt is currently asymptomatic on his lt foot. Objective: Pulses are palpable, sensation to light touch is intact. Patient has slightly limited muscle strength and ROM. Minimal signs of edema, no sign of erythema, infection, ulceration, or drainage on the lt.Very minimal pain noted over surgical site lt foot. Completely healed rt great toenail bed. X-rays taken 3 views lt foot weightbearing which shows continued bridging bone callous across non-union take-down from lateral to medial. Stable internal fixation and no other sign of osseous pathology. Assessment: 11 wks post op Plan: Pt may shower and no foot soaks. Continue with ice and compression. Limit activities with partial weight bearing in a new CAM boot on lt and regular shoe on rt. Clinically pt continues to note clinical improvement, yet also discussed the possibility of EXOGEN in the future. Call with questions or concerns and follow-up in 3-4 wks for re-check. documented in this encounter Nursing Notes 04/30/2011 9:00 AM CDT >> MELL MAGANA Wed Apr 30, 2011 9:00 AM Patient presents with: Surgical Followup - 02/06 left foot surgery. Second metatarsal fracture nonunion, left foot Initial There were no vitals taken for this visit. Mell Magana CMA documented in this encounter Plan of Treatment Not on filedocumented as of this encounter Procedures Procedure Name Priority Date/Time Associated Diagnosis Comme nts XR FOOT LEFT G/E 3 Routine 04/30/2011 9:12 AM Surgery aftercar e Results for this VIEWS CDT procedure are i n the results section. documented in this encounter Results X-ray lt Foot G/E 3 vws* (04/30/2011 9:12 AM CDT) Anatomical Region Laterality Modality Foot, Ankle Left Other Specimen (Source) Anatomical Collection Method Collection Time Re ceived Time Location / / Volume Laterality 04/30/2011 9:12 AM CDT Impressions 04/30/2011 10:09 AM CDT FOOT G/E 3 VIEWS LEFT * Apr 30, 2011 9:1 2:00 AM HISTORY: ??Post op. FINDINGS: Post op changes ?? . Exam othe rwise negative. Sal Chaparro DPM IMG DIAGNOSTIC IMAGING ORDER BRAYDEN documented in this encounter Visit Diagnoses Diagnosis Surgery aftercare - Primary Other specified aftercare following surg anai documented in this encounter
--- OUTSIDE RECORDS SUMMARY | 2022-05-28 05:06 | XMS_ITS | Encounter Summary ---
:1940 Author Organization [place] Address [address] [place] [id number] Care Team Providers Name Role Phone Primary Dr, Unknown MD Primary Care Provider Unavailable Reason for Visit Reason Onset Date Comments Appointment 10/30/2016 Encounter Details Date Type Department Care Team Description 10/30/2016 Telephone [facility] Jon White, Appointment Birdsborojuly Coppola MD [address] [place] [address] [phone] [place] [address] (Wo rk) Social History Tobacco Use Types [...] this encounter Miscellaneous Notes Telephone Encounter - Lisa Diaz RN - 10/30/2016 3:12 PM CST Pt's daughter called back. Went over instructions for MOHS. Pt will come in at 10 am to get valium before procedure. Pt's daughter will accompany him. O MOVER Telephone Encounter - Lisa Diaz RN - 10/30/2016 2:33 PM CST Left detailed message for pt' daughter explaining patient can have MOHS done next week in order to save himself an extra trip or they can just come in and have consult 1st. O MOVER Telephone Encounter - Aruna Rodriguez - 10/30/2016 8:14 AM CST Patient's daughter would like clarification as to whether Mr. Hendricks is having Mohs surgery rather than consult only - as it's scheduled @ 10:45. Please advise Raquel. O MOVER documented in this encounter Plan of Treatment Not on filedocumented as of this encounter Visit Diagnoses Not on filedocumented in this encounter Care Teams Family Practitioner Relationship Specialty Start Date End Date Primary Dipak Kasper MD PCP - General 09/21/1204/18 documented as of this encounter
--- OUTSIDE RECORDS SUMMARY | 2022-05-28 05:06 | XMS_ITS | Encounter Summary ---
:1940 Author Organization [place] Address [address] [place] [address] Care Team Providers Name Role Phone Primary DrDipak MD Primary Care Provider Unavailable Celina Coley Primary Care Provider [facility] Primary Care Provider [phone] Jon White MD Unavailable [phone] Ramiro Loco MD Unavailable Encounter Details Date Type Department Care Team Description 11/29/2014 [facility] [address] [place] [phone] [place], [place] [phone] Social History Tobacco Use Types Packs/Day Years [...] encounter OR Notes Anesthesia Postprocedure Evaluation - Néstor Stack - 11/29/2014 3:05 PM CST Patient: Speedy Hendricks Procedure(s): LEFT L2-3, L3-4 POSTERIOR FUSION AND L3-4 REVISION DECOMPRESSION Anesthesia type: general Patient location: PACU Last vitals: Filed Vitals: 11/29/14 1500 BP: 126/61 Pulse: 82 Temp: 37.1 ??C (98.7 ??F) Resp: 21 SpO2: 97% Post vital signs: stable Level of consciousness: drowsy, awakens and is conversant Post-anesthesia pain: pain controlled, improving Post-anesthesia nausea and vomiting: no Pulmonary: unassisted, return to baseline, supplemental oxygen via NC; JACKSON orders Cardiovascular: stable and blood pressure at baseline, one dose of Hydralazine brought down his SBP/DBP to a nice range Hydration: adequate Anesthetic complications: no Additional 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: 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 Anesthesia Preprocedure Evaluation - Néstor Stack - 11/29/2014 10:00 AM CST Anesthesia Evaluation Patient summary reviewed No history of anesthetic complications Airway Mallampati: II Neck ROM: full Pulmonary - negative ROS and normal exam Cardiovascular (+) hypertension well controlled, (-) past CT, CAD, CABG/stent, dysrhythmias ECG reviewed Rhythm: regular Rate: normal Neuro/Psych - negative ROS Endo/Other (+) diabetes mellitus type 2 well controlled, obesity, GI/Hepatic/Renal - negative ROS Dental - normal exam Anesthesia Plan Planned anesthetic: general endotracheal Decadron (8 mg), Zofran. 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 To PACU with O2. VSS. Report to JOSE Henley. documented in this encounter Plan of Treatment Not on filedocumented as of this encounter Visit Diagnoses Not on filedocumented in this encounter Additional Health Concerns Infection Onset Date Last Indicated Resolved Time MRSAComment: Positive 02/17/11 and 09/22/12 11/05/2018 019 Negatives 05/03/14 (HE), 12/01/14 (HE) documented as of this encounter Care Teams Neighborhood Aide Relationship Specialty Start Date End Date Primary Dipak Kasper MD PCP - General 09/21/1204/18 Celina Coley PCP - General Family Practice 05/05/17 05/11/[address] [address] [facility] - [facility] 05/12/[address] [id number] Jon White Assigned Surgical Provider 08/10/20 12/08/20 MD [address] [place], [place] [phone] Ramiro Loco MD Assigned Heart and 08/10/20 05/11/21 [address] Vascular Provider [place] [address] documented as of this encounter
--- OUTSIDE RECORDS SUMMARY | 2022-05-28 05:06 | XMS_ITS | Encounter Summary ---
:1940 Author Organization [place] Address [address] [place] [address] Care Team Providers Name Role Phone Primary DrDipak MD Primary Care Provider Unavailable Celina Coley Primary Care Provider [facility] [place] Primary Care Provider [phone] Jon White MD Unavailable [phone] Ramiro Loco MD Unavailable Encounter Details Date Type Department Care Team Description 05/02/2014 Anesthesia - [facility] Zoltan Arizmendi MD [address] [place] [address] [phone] Social History Tobacco Use Types Packs/Day Years [...] encounter OR Notes Anesthesia Postprocedure Evaluation - Dimas Esposito - 05/03/2014 10:04 AM CDT Patient: Speedy Hendricks Procedure(s): BILATERAL L2-3 AND L3-4 LAMINECTOMY REVISION L4 LAMINOTOMY NON-INSTRUMENTED FUSION L3-4 Anesthesia type: general Patient location: PACU Last vitals: Filed Vitals: 05/03/14 0943 BP: 150/73 Pulse: 52 Temp: Resp: 8 SpO2: 95% Post vital signs: stable Level of consciousness: awake and responds to simple questions Post-anesthesia pain: pain controlled Post-anesthesia nausea and vomiting: no Pulmonary: unassisted, return to baseline Cardiovascular: stable and blood pressure at baseline Hydration: adequate Anesthetic complications: no Additional Notes: Anesthesia Preprocedure Evaluation - Dimas Esposito - 05/03/2014 6:50 AM CDT Anesthesia Evaluation Patient summary reviewed Airway Mallampati: II Pulmonary - negative ROS and normal exam Cardiovascular - normal exam Exercise tolerance: good (+) hypertension, Rhythm: regular Rate: normal Neuro/Psych - negative ROS Endo/Other - negative ROS (+) diabetes mellitus well controlled, GI/Hepatic/Renal - negative ROS Dental - normal exam Anesthesia Plan Planned anesthetic: general endotracheal ASA 2 Induction: intravenous Anesthetic plan and risks discussed with: patient Post-op plan: routine recovery documented in this encounter Miscellaneous Notes Anesthesia Care Transfer Note - Jyoti Ibrahim APRN CRNA - 05/03/2014 9:27 AM CDT Last vitals: Filed Vitals: 05/03/14 0923 BP: 142/77 Pulse: 55 Temp: 36.7 ??C (98 ??F) Resp: 16 SpO2: 99% Patient's level of consciousness is awake Spontaneous respirations: yes Maintains airway independently: yes Dentition unchanged: yes I completed my SBAR handoff to the receiving nurse per policy and procedure. documented in this encounter Plan of Treatment Not on filedocumented as of this encounter Visit Diagnoses Not on filedocumented in this encounter Additional Health Concerns Infection Onset Date Last Indicated Resolved Time MRSAComment: Positive 02/17/11 and 09/22/12 11/05/2018 019 Negatives 05/03/14 (HE), 12/01/14 (HE) documented as of this encounter Care Teams Personnel Technician Relationship Specialty Start Date End Date Primary Dipak Kasepr MD PCP - General 09/21/1204/18 Celina Coley PCP - General Family Practice 05/05/17 05/11/[address] [address] Kehinde Portillo PCP - General 05/12/[address] [address] Jon White Assigned Surgical Provider 08/10/20 12/08/20 MD [address] [place] [address] Ramiro Loco MD Assigned Heart and 08/10/20 05/11/21 [address] [place] [address] Vascular Provider [place] [address] documented as of this encounter
--- OUTSIDE RECORDS SUMMARY | 2022-05-28 05:06 | XMS_ITS | Encounter Summary ---
:1940 Author Organization [employer] Address [address] [place] [address] Care Team Providers Name Role Phone Unavailable Primary Care Provider Unavailable Reason for Visit Reason Comments Surgical Followup 02/06/11 post op left foot wi th hardware. pt is having pain. Encounter Details Date Type Department Care Team Description 07/30/2012 Office Visit [facility] Sal Chaparro pa in (Primary Dx); Yariel Castellanos DPM Enthesopathy of unspecified site [address] [place] [address] E [phone] [facility] [address] [place], [place] [address] Social History Tobacco Use Types Packs/Day Years Used Date Unknown If Ever Smoked Alcohol Use Standard Drinks/Week Comments Not Asked 0 (1 standard drink = 0.6 oz pure alcoho l) Sex Assigned at Date Recorded Not on file documented as of this encounter Patient Instructions Patient InstructionsMell Magana - 07/30/2012 8:01 AM CDT Mell Magana CMA documented in this encounter Progress Notes Sal Chaparro DPM - 07/30/2012 8:02 AM CDT Subjective: Patient is seen today post op from a 1. Hammertoe correction, second toe, left foot. 2. Nonunion takedown, debridement and bone grafting second metatarsal, left foot. 3. Surgical matrixectomy, right great toenail. . Patient is doing well, admits compliance, denies fevers, chills, nausea or vomiting. Continues to use regular shoe on lt - and relates a recent hx of dropping some wood onto the top of the foot. Increase in pain noted over the plate. PMH, meds, all, PSH, PFH, and soc hx were reviewed Soc: REVIEW OF SYSTEMS: CONSTITUTIONAL:NEGATIVE for fever, chills, change in weight INTEGUMENTARY/SKIN: NEGATIVE for worrisome rashes, moles or lesions MUSCULOSKELETAL:See HPI above NEURO: NEGATIVE for weakness, dizziness or paresthesias Objective: Pulses are palpable, sensation to light touch is intact. Patient has slightly limited muscle strength and ROM. Minimal signs of edema, no sign of erythema, infection, ulceration, or drainage on the lt.No pain noted over surgical site lt foot. Completely healed rt great toenail bed. Pain upon palpation to plate. Assessment: post op Painful internal fixation Plan: Pt may shower and no foot soaks. Continue with ice and compression. Hardware removal as an out-pt. Discussed risks and benefits of the procedure with the patient in detail. Potential complications include, but are not limited to continued postoperative pain, swelling, infection, ulceration, numbness, overcorrection, undercorrection, delayed healing, recurrence, RSDS, DVT/PE, anesthetic risks, or the possibility of further surgical correction in the future. Pt. understands the nature of the procedure and understands that there are no guarantees. Pt. has informed consent. 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 pt is having pain. Initial There were no vitals taken for this visit. Mell Magana CMA documented in this encounter Plan of Treatment Not on filedocumented as of this encounter Procedures Procedure Name Priority Date/Time Associated Diagnosis Comme nts XR FOOT LEFT G/E 3 Routine 07/30/2012 8:06 AM Foot pain Res ults for this VIEWS CDT procedure are i n the results section. documented in this encounter Results X-ray lt Foot G/E 3 vws* (07/30/2012 8:06 AM CDT) Anatomical Region Laterality Modality Foot, Ankle Left Other Specimen (Source) Anatomical Collection Method Collection Time Re ceived Time Location / / Volume Laterality 07/30/2012 8:06 AM CDT Impressions 07/30/2012 8:19 AM CDT LEFT FOOT, WEIGHTBEARING 3 VIEWS ??- ??1 8:06 AM HISTORY: ??Pain. COMPARISON: 09/17/2011. IMPRESSION: No interval change. Healed i nternally fixed second metatarsal fracture with dorsal plate/sc rew fixation device. Small plantar calcaneal spur. aSl Chaparro DPM IMG DIAGNOSTIC IMAGING ORDER BRAYDEN documented in this encounter Visit Diagnoses Diagnosis Foot pain - Primary Pain in limb Enthesopathy of unspecified site documented in this encounter
--- OUTSIDE RECORDS SUMMARY | 2022-05-28 05:06 | XMS_ITS | Encounter Summary ---
:1940 Author Organization [facility] Address [address] [place] [id number] Care Team Providers Name Role Phone Primary Dr, Unknown MD Primary Care Provider Unavailable Reason for Visit Reason Comments Back Pain Leg Pain Encounter Details Date Type Department Care Team Description [facility] [address] [place] [address] Acute low back pain 04/30/2017 Encounter [facility] Dilshad John MD [address] [place] [address] due to trauma [address] Provider, Historical [address] [place] [phone] Social History Tobacco Use Types Packs/Day Years [...] Sign Reading Time Taken Comments Blood Pressure - - Pulse - - Temperature - - Respiratory Rate - - Oxygen Saturation - - Inhaled Oxygen Concentration - - Weight 90.9 kg (200 lb 4.8 oz) 04/28/2017 4:00 AM CDT Height 177.8 cm (5' 10) 04/28/2017 4:00 AM CDT Body Mass Index 28.74 04/28/2017 4:00 AM CDT documented in this encounter Discharge Summaries Dilshad John MD - 04/30/2017 2:09 PM CDT [facility] MED[facility] DISCHARGE SUMMARY Primary Care Physician: Kannan Nieto MD Admission Date: 04/28/2017 Discharge Provider: Dilshad John Discharge Date: 04/30/2017 Diet: cardiac diet Code Status: Full Code Activity: activity as tolerated Condition at Discharge: Good REASON FOR ADMISSION (See Admission Note for Details) Low back pain secondary to the fall PRINCIPAL DISCHARGE DIAGNOSIS Nondisplaced insufficiency type sacral fracture secondary to the fall SIGNIFICANT FINDINGS (Imaging, labs): MRI showed nondisplaced insufficiency type sacral fractures. There is osseous edema involving the sacral ala Creatinine of 1.49 which is a chronic condition. Hemoglobin of 13.6. The rest of the CBC is unremarkable. PENDING LABS None PROCEDURES ( this hospitalization only) * No surgery found * RECOMMENDATION FOR F/U VISIT Patient was given exercises for PT and OT. DISPOSITION ( home, home care, TCU...) Discharge home SUMMARY OF HOSPITAL COURSE: Nondisplaced insufficiency type sacral fractures - [facility] consult, patient of Dr Mcclure and his injury was described to him -no surgery inidcated - IV dilaudid. He also does ok with oral oxycodone and [place] - taper off IV opioids and optimize oral meds in anticipation of eventual discharge in AM. -received steroids. Can be gradually tapered off. Currently 15 mg prednisone today -PT and OT recommended home assist - Continue gabapentin -continue to manage and optimize pain meds today; adjust dose and increase his mobility; he does notfeel confident going home today as it was his first day being out of bed ??Urine retention in ED, resolved -Concerned this could be related to his spinal pathology. Recheck PVR on the floor -chapman or straight cath as indicated -on terazocin ??AAA, stable -Family concerned about an XR where the AAA appeared to be 5.5cm in diameter. PCP just obtained US that confirmed it 4.2cm and unchanged. ??HTN, chronic, mildly elevated -BP poorly controlled in ED. Family worried about this because of his AAA. - Monitor BP - Continue home metoprolol and Hytrin - Hydralazine PRN CKD, stage 2 -follow renal function ??HTN, chronic, fairly controlled -BP poorly controlled in ED. Family worried about this because of his AAA. - Monitor BP - Continue home metoprolol and Hytrin - Hydralazine PRN Discharge Medications with Med changes: Medication List START taking these medications cyclobenzaprine 10 MG tablet Quantity: 30 tablet Dose: 10 mg Commonly known as: FLEXERIL 10 mg, Oral, BID PRN predniSONE 10 mg tablet Quantity: 9 tablet Commonly known as: DELTASONE Take 1.5 tabs daily for 3 days, then 1 tab daily for 3 days, then 0.5 tab daily for 3 days, then stop. CHANGE how you take these medications HYDROcodone-acetaminophen 7.5-325 mg per tablet Quantity: 30 tablet Dose: 1 tablet Commonly known as: NORCO 1 tablet, Oral, Q4H PRN What changed: - when to take this - reasons to take this CONTINUE taking these medications acetaminophen 650 MG CR tablet Dose: 1300 mg Commonly known as: TYLENOL 1,300 mg, Oral, Q8H PRN atorvastatin 40 MG tablet Dose: 40 mg Commonly known as: LIPITOR 40 mg, Oral, QHS calcium-vitamin D 500 mg(1,250mg) -200 unit per tablet Dose: 1 tablet Generic drug: calcium-vitamin D 1 tablet, Oral, DAILY COMPLETE MULTIVITAMIN Tab Dose: 1 tablet Generic drug: multivitamin,[id number] 1 tablet, Oral, DAILY desonide 0.05 % cream Dose: 1 application Commonly known as: DESOWEN 1 application, Topical, BID PRN diclofenac 75 MG EC tablet Dose: 75 mg Commonly known as: VOLTAREN 75 mg, Oral, QHS diflorasone 0.05 % cream Dose: 1 application Commonly known as: PSORCON 1 application, Topical, TID PRN gabapentin 300 MG capsule Dose: 300 mg Commonly known as: NEURONTIN 300 mg, Oral, TID metoprolol tartrate 50 MG tablet Dose: 50 mg Commonly known as: LOPRESSOR 50 mg, Oral, BID miSOPROStol 200 MCG tablet Dose: 200 mcg Commonly known as: CYTOTEC 200 mcg, Oral, QHS morphine 15 MG 12 hr tablet Dose: 15 mg Commonly known as: MS CONTIN 15 mg, Oral, BID pramipexole 0.5 MG tablet Dose: 0.5 mg Commonly known as: MIRAPEX 0.5 mg, Oral, QHS terazosin 5 MG capsule Dose: 5 mg Commonly known as: HYTRIN 5 mg, Oral, QHS STOP taking these medications bisacodyl 5 mg EC tablet Commonly known as: DULCOLAX Rationale for medication changes: Cyclobenzaprine for muscle spasms of the lower extremities. Prednisone for edema of the bone secondary to trauma. Problem list from this hospital stay: Principal Problem: Acute low back pain due to trauma Active Problems: Essential hypertension AAA (abdominal aortic aneurysm) Lumbar radiculopathy Hyperglycemia, drug-induced Sacral fracture, closed Consult/s: orthopedic surgery and Acute pain management team Discharge Instructions: Additional discharge instructions: Follow-up with orthopedics Discharge Orders Diet-Regular Order Specific Question Answer Comments Diet Type Regular Up walking as tolerated with assist and assistive device as needed Order Comments: Rest is encouraged to allow fractures to heal. Weight Bearing Status Order Specific Question Answer Comments Weight bearing status WBAT (Weight-bearing As Tolerated) Discharge Follow Up Order Comments: Please follow-up with Dr. Mcclure/Mahesh Rodgers PA-C in 2-3 weeks or as needed at [facility]. Call our scheduling line at [phone] to make an appointment if you do not already have one scheduled. Activity as tolerated Order Comments: Rest when tired Call MD: if symptoms get worse Call MD for: redness or swelling Call MD: pain or burning when you urinate Call MD for: difficulty breathing, headache or visual disturbances Call MD for: temperature >101 Call MD for: severe uncontrolled pain Call MD: Constipation (difficulty having a bowel movement) Call MD for: dizziness, persistent nausea or vomiting Call MD: weight gain more than two pounds in a day or five pounds in a week Discharge Follow Up - [facility] Order Comments: Additional discharge instructions: PCP follow up: I week or sooner if there are medical symptoms (that are not related to recent surgery if any) Specialty follow up: ortho as ordered Post-operative care if any: per ortho Diet: resume as before Activity: per PT/OT recommendations (if post-op, limitations per surgery) Home care: not needed Follow up labs: -- Follow up tests: defer to ortho and PP Return to Work (if applicable): n/a Other instructions: watch out for non-surgery related symptoms and follow with pcp. Preventive care issues (which are not addressed in this hospitalization) will also have to be discussed with primary care doctor. Order Specific Question Answer Comments Follow-up in: [facility] Follow-up appointment with Primary Care Clinic to be scheduled before leaving the hospital Subjective Patient is looking comfortable. Pain is adequately controlled. He is alert and awake responding appropriately to questions. Examination Vital Signs in last 24 hours: Temp: [97.8 ??F (36.6 ??C)-98.2 ??F (36.8 ??C)] 97.8 ??F (36.6 ??C) Heart Rate: [57-70] 69 Resp: [16] 16 BP: (147-201)/(79-117) 172/88 SpO2: [95 %-99 %] 98 % No jaundice no jugular venous distention no adenopathy Lungs are clear to auscultation no wheezing crackles or stridor. Regular heart rhythm with no significant murmurs noted. Abdomen is soft and nontender no palpable mass. No significant peripheral edema. Able to ambulate and move all extremities. There is tenderness in the lumbosacral area. Please see EMR for more detailed significant labs, imaging, data integrity consultant notes etc. Total time spent on discharge: More than 35 minutes Dilshad John MD Pager #: CC:Kannan Nieto MD documented in this encounter Medications at Time of Discharge Medication Sig Dispensed Refills Start Date End Date METOPROLOL TARTRATE PO Take 50 mg by mouth 0 11/05/2018 2 times daily. acetaminophen (TYLENOL Take 650 mg by 0 05/05/2017 ARTHRITIS PAIN) 650 MG CR mouth every 8 hours tablet as needed. acetaminophen-codeine Take 1-2 tablets by 0 05/05/2017 (TYLENOL/CODEINE #3) mouth every 4 hours 300-30 MG per tablet as needed. fluocinolone (SYNALAR) Apply topically 0 05/05/2017 0.01 % external solution daily as needed. HYDROcodone-acetaminophen Take 1 tablet by 30 tablet 0 09/1805/05/2017 5-325 MG per mouth every 6 hours tabletIndications: as needed for pain. Aftercare following surgery of the musculoskeletal system, NEC HYDROcodone-acetaminophen Take 1 tablet by 30 tablet 0 09/1805/05/2017 5-325 MG per mouth every 6 hours tabletIndications: as needed for pain. Ingrowing nail, Pain in limb HYDROcodone-acetaminophen Take 1-2 tablets by 30 tablet 0 1 12/01/2011 05/05/2017 5-325 MG per mouth every 4 hours tabletIndications: as needed for other Aftercare following (Moderate to Severe surgery of the Pain). musculoskeletal system, NEC MISOPROSTOL PO Take 200 mcg by 0 05/05 mouth 2 times daily. multivitamin, therapeutic Take 1 tablet by 0 05/05/2017 with minerals mouth daily. (MULTI-VITAMIN) TABS SIMVASTATIN PO Take 80 mg by mouth 0 0 05/05/2017 At Bedtime. sulfamethoxazole-trimethop Take 1 tablet by 20 tablet 0 05/05/2017 rim (BACTRIM DS,SEPTRA DS) mouth 2 times 800-160 MG per daily. tabletIndications: Ingrowing nail, Pain in limb terazosin (HYTRIN) 2 MG Take 5 mg by mouth 0 05/05/2017 capsule At Bedtime TOLTERODINE TARTRATE PO Take 4 mg by mouth 0 05/05/2017 daily. Extended release (every 24hrs) documented as of this encounter Progress Notes Ca Plunkett - 04/30/2017 12:19 PM CDT PHARMACIST IN CHARGE TREATMENT NOTE Name: Speedy Hendricks : 1940 Acupuncture Treatment Patient Type: Medical Intervention Reason: Urinary Retention Patient complaint:: urinary retention Acupuncture (Points):: [place] (6,4,3); St 28, St 29, LI 4, BL 39, St 36, Sp 9, Ki 3, [place] 3 Checklist: Progress Note Completed, Consent Reveiwed Risks and benefits of acupuncture were discussed with patient. Consent for treatment was given. We thank you for the referral. Ca Modi.Ac. Date: 04/30/2017 Time: 12:19 PM Rae Greenberg PA-C - 04/30/2017 11:08 AM CDT Orthopedic Progress Note Subjective: Patient is continuing to do well today. He is voiding independently. Still having pain in his buttock and in his right leg > left, but it has significantly improved. Looking forward to going home today. Objective: Vitals: 04/30/17 0814 BP: 172/88 Pulse: 69 Resp: 16 Temp: 97.8 ??F (36.6 ??C) SpO2: 98% General: On examination, the patient is resting comfortably, NAD, awake and alert??and oriented to person, place, time, and and general circumstances?? SKIN: There is no evidence of skin breakdown. There is a scar of his lumbar spine due to previous spine fusion. Pulses: ??dorsalis pedis and posterior tibial??pulse is intact and equal bilaterally Sensation:??intact and equal bilaterally??to the distal lower??extremities. Tenderness:??TTP over the buttocks bilaterally, especially over the SI joints. No TTP over the lumbar spine. ROM:??Appropriate flexion and extension of the toes. Dorsi/plantarflexion intact and equal bilaterally. Motor:??5/5 strength BLE. Pertinent Labs Lab Results: personally reviewed. Lab Results Component Value Date INR 0.99 04/28/2017 Lab Results Component Value Date WBC 9.0 04/28/2017 HGB 13.6 (L) 04/28/2017 HCT 39.7 (L) 04/28/2017 MCV 94 04/28/2017 PLT 164 04/28/2017 Lab Results Component Value Date NA 141 04/28/2017 K 4.0 04/28/2017 CL 109 (H) 04/28/2017 CO2 22 04/28/2017 Assessment: Nondisplaced insufficiency type sacral fractures ?? Plan: Encourage rest to allow fractures to heal Continue steroids and steroid taper upon discharge PT/OT today Continue pain control Close follow up with Dr. Mcclure/Mahesh Rodgers PA-C Discharge home today. ?? Report completed by: Rae Campo PA-C Date: 04/30/2017 Time: 11:08 AM Debby Chan BSW - 04/30/2017 10:43 AM CDT SW met with pt, and daughter present in room. Pt stated that there is no needs at discharge, and family will be able to assist if needs arise. Pt noted that his pain is much better. Daughter will transport. TANJA Rodríguez LAND DEVELOPER 04/30/2017 Rae Campo PA-C - 04/29/2017 4:26 PM CDT Orthopedic Progress Note Subjective: Patient is doing significantly better today. Pain has greatly improved and he has not had leg cramping and spasms all day. Right leg is more painful than the left. He is ambulating well. Objective: Vitals: 04/29/17 0729 BP: 146/69 Pulse: 71 Resp: 16 Temp: 98.2 ??F (36.8 ??C) SpO2: 94% General: On examination, the patient is resting comfortably, NAD, awake and alert and oriented to person, place, time, and and general circumstances SKIN: There is no evidence of skin breakdown. There is a scar of his lumbar spine due to previous spine fusion. Pulses: dorsalis pedis and posterior tibial pulse is intact and equal bilaterally Sensation: intact and equal bilaterally to the distal lower extremities. Tenderness: TTP over the buttocks bilaterally, especially over the SI joints. No TTP over the lumbarspine. ROM: Appropriate flexion and extension of the toes. Dorsi/plantarflexion intact and equal bilaterally. Motor: 5/5 strength BLE. Pertinent Labs Lab Results: personally reviewed. Lab Results Component Value Date INR 0.99 04/28/2017 Lab Results Component Value Date WBC 9.0 04/28/2017 HGB 13.6 (L) 04/28/2017 HCT 39.7 (L) 04/28/2017 MCV 94 04/28/2017 PLT 164 04/28/2017 Lab Results Component Value Date NA 141 04/28/2017 K 4.0 04/28/2017 CL 109 (H) 04/28/2017 CO2 22 04/28/2017 Assessment: Nondisplaced insufficiency type sacral fractures Plan: Encourage rest to allow fractures to heal Continue steroids and steroid taper upon discharge PT/OT today Remove chapman catheter, monitor ability to void Continue pain control Close follow up with Dr. Mcclure/SHAD Dawkins and myself both discussed the diagnosis and treatment plan with the patient and his daughter. They endorse a good understanding and are in agreement with the plan. Plan for discharge home tomorrow. Report completed by: Rae Campo PA-C Date: 04/29/2017 Time: 4:26 PM Dilshad John MD - 04/29/2017 3:16 PM CDT PROGRESS NOTES Speedy Hendricks, 1940. 76 y.o. DOS: 04/29/2017 Assessment and Plans: Nondisplaced insufficiency type sacral fractures - [facility] consult, patient of Dr Mcclure and his injury was described to him -no surgery inidcated - IV dilaudid. He also does ok with oral oxycodone and [place] - taper off IV opioids and optimize oral meds in anticipation of eventual discharge in AM. -received steroids. Can be gradually tapered off. Currently 15 mg prednisone today -PT and OT recommended home assist - Continue gabapentin -continue to manage and optimize pain meds today; adjust dose and increase his mobility; he does notfeel confident going home today as it was his first day being out of bed ??Urine retention in ED, resolved -Concerned this could be related to his spinal pathology. Recheck PVR on the floor -chapman or straight cath as indicated -on terazocin ??AAA, stable -Family concerned about an XR where the AAA appeared to be 5.5cm in diameter. PCP just obtained US that confirmed it 4.2cm and unchanged. ??HTN, chronic, mildly elevated -BP poorly controlled in ED. Family worried about this because of his AAA. - Monitor BP - Continue home metoprolol and Hytrin - Hydralazine PRN CKD, stage 2 -follow renal function ??HTN, chronic, fairly controlled -BP poorly controlled in ED. Family worried about this because of his AAA. - Monitor BP - Continue home metoprolol and Hytrin - Hydralazine PRN Discharge disposition/ Anticipated discharge: tomorrow if stable Barrier/s to discharge: see above active problems Pertinent labs and imaging results: Noted and reviewed. Code Status: Full Code Pain management: as ordered Consults: ortho spine Dr Mcclure Subjective: Patient is feeling better today; out of bed; ambulated with walker Pain: better controlled today Patient is eating well. Breathing: ok Chest pain: none Abdomen: ok Bowel movements: none yet Other acute issues: none Review of Systems: Vital signs: BP 146/69 (Patient Position: Lying) Pulse 71 Temp 98.2 ??F (36.8 ??C) (Oral) Resp16 Ht 5' 10 (1.778 m) Wt 200 lb 4.8 oz (90.9 kg) SpO2 94% BMI 28.74 kg/m2 Weight is -- Change in mental status- no Diarrhea or GI problem- no Nausea or vomiting- no Acute focal neurologic deficits- no Shortness of breath- no Chest pain- no Abdominal pain- no Melena or hematochezia- no Calf tenderness- no Bleeding- no Pertinent positives as mentioned above. Rest of 12-point review of systems negativ Physical Examination: Telemetry: -- Temp: [97.8 ??F (36.6 ??C)-99.5 ??F (37.5 ??C)] 98.2 ??F (36.8 ??C) Heart Rate: [71-102] 71 Resp: [16-18] 16 BP: (145-166)/(67-83) 146/69 SpO2: [93 %-97 %] 94 % GEN: Awake, Not in distress; responding to questions- HEAD: no jaundice noted, NECK: no neck stiffness, no JVD; CVS: rhythm regular LUNGS: crackles absent; wheezing absent ; stridor- absent ABD: BS (+), Soft, No area of tenderness ; abdomen is benign EXT: no edema, no calf tenderness NEURO: no acute focal weakness PSYCHIATRY: Patient not agitated or depressed MUSCULOSKELETAL: joint pain or effusion- none ; focal erythema/warmth or breaks in the skin- none; tender in the sacral area Labs: I have reviewed the following lab results: No results found for this or any previous visit (from the past 24 hour(s)). Radiology: I have reviewed the following imaging results: Mr Lumbar Spine Without Contrast Result Date: 04/29/2017 [facility] MR LUMBAR SPINE WO CONTRAST 04/28/2017 2:12 PM INDICATION: Low back pain, prior lumbar surgery TECHNIQUE: Routine. CONTRAST: None COMPARISON: None. FINDINGS: Nomenclature is based on 5 lumbar type vertebral bodies. Broad thoracolumbar levocurvature. 2-3 mm retrolisthesis at multiple levels from T12 through L4. 2 mm anterolisthesis at L5-S1. Posterior instrumented fusion from L2 through L4. Solid interbody fusion from L4 through S1. Previous dorsal decompression at L3-4 and potentially also at L4-5 and L5-S1. Solid dorsolateral fusion from L3 through S1. Predominantly Modic type IIendplate signal changes at L1-2 and L2-3. No pars defect. The conus tip is identified at L2. Extensive postoperative changes within the posterior paraspinal soft tissues including a small amount of fluid within the laminectomy defect at L3 and at L5-S1. The abdominal aorta is not diagnostically assessed. Osseous edema involving the right greater the left sacral ala concerning for sacral insufficiencyfractures. T12-L1: Mild to moderate loss of disc height and signal. Shallow right foraminal and lateral disc osteophyte complex. Mild facet arthropathy. Low-grade narrowing of the right lateral recess.No spinal canal stenosis. No right neural foraminal stenosis. No left neural foraminal stenosis. L1-L2: Moderate to advanced loss of disc height and signal, greater on the right. Mild circumferential disc osteophyte complex of asymmetric right foraminal and lateral component. Mild facet arthropathy. No spinal canal stenosis. Mild right neural foraminal stenosis. No left neural foraminal stenosis. L2-L3: Moderate to advanced loss of disc height and signal, greater on the right. Circumferential disc osteophyte complex of asymmetric right foraminal and lateral component. Dorsolateral fusion. No spinalcanal stenosis. Neural foramina partially obscured by hardware artifact. Partial effacement of the inferior neural foramina bilaterally. No significant right neural foraminal stenosis. No left neural foraminal stenosis. L3-L4: Moderate to advanced loss of disc height and signal, greater on the left. Circumferential disc osteophyte complex of asymmetric left foraminal and lateral component. Previous dorsolateral fusion. Dorsal decompression. No Spinal canal stenosis. Neural foramina partially obscured by hardware artifact. Mild right neural foraminal stenosis. Severe left neural foraminal stenosis. L4-L5: Solid interbody fusion. Minor residual interbody spurring. Solid dorsolateral fusion. No spinal canal stenosis. No right neural foraminal stenosis. No left neural foraminal stenosis. L5-S1: Solidinterbody fusion. Minor residual interbody spurring. Solid dorsolateral fusion. No spinal canal stenosis. No right neural foraminal stenosis. No left neural foraminal stenosis. CONCLUSION: 1. Osseous edema involving both sacral ala, somewhat more so on the right than the left.The pattern suggests nondisplaced insufficiency type sacral fractures. 2. Extensive postoperative changes with posterior cemented fusion from L2 through L4 and solid osseous fusion from L4 through S1 as above. Postoperative changes within the posterior paraspinal soft tissues including several small fluid collections, presumably ceruminous. 3. At L3-4, suggestion of severe left neural foraminal stenosis; however, neural foramina are partially obscured by hardware artifact. 4. At L1-2, mild right neural foraminal stenosis. Dilshad John MD [facility] Hospitalist Jeanette Santana, [facility] - 04/28/2017 8:59 AM CDT Pharmacy Note - Admission Medication History Pertinent Provider Information: n/a Prior To Admission (SALES MARKETING COORDINATOR) med list completed and updated in EMR. SALES MARKETING COORDINATOR Med List Medication Sig Note Last Dose ??? acetaminophen (TYLENOL) 650 MG CR tablet Take 1,300 mg by mouth every 8 (eight) hours as needed for pain. 04/26/2017 ??? atorvastatin (LIPITOR) 40 MG tablet Take 40 mg by mouth at bedtime. 04/26/2017 ??? bisacodyl (DULCOLAX) 5 mg EC tablet Take 5-10 mg by mouth daily. 04/27/2017 at Unknown time ??? calcium-vitamin D (CALCIUM-VITAMIN D) 500 mg(1,250mg) -200 unit per tablet Take 1 tablet by mouth daily. Past Week at Unknown time ??? desonide (DESOWEN) 0.05 % cream Apply 1 application topically 2 (two) times a day as needed. Past Week at Unknown time ??? diclofenac (VOLTAREN) 75 MG EC tablet Take 75 mg by mouth at bedtime. 04/26/2017 ??? diflorasone (PSORCON) 0.05 % cream Apply 1 application topically 3 (three) times a day as needed. Past Week at Unknown time ??? gabapentin (NEURONTIN) 300 MG capsule Take 300 mg by mouth 3 (three) times a day. 04/27/2017 at Unknown time ??? HYDROcodone-acetaminophen (NORCO) 7.5-325 mg per tablet Take 1 tablet by mouth every 6 (six) hours as needed for pain. 04/27/2017 at Unknown time ??? metoprolol tartrate (LOPRESSOR) 50 MG tablet Take 50 mg by mouth 2 (two) times a day. 04/27/2017 at Unknown time ??? miSOPROStol (CYTOTEC) 200 MCG tablet Take 200 mcg by mouth at bedtime. 04/26/2017 at Unknown time ??? morphine (MS CONTIN) 15 MG 12 hr tablet Take 15 mg by mouth 2 (two) times a day. 04/27/2017 at just started 04/27 ??? multivitamin,[id number]-[id number] (COMPLETE MULTIVITAMIN) Tab Take 1 tablet by mouth daily. Past Week at Unknown time ??? pramipexole (MIRAPEX) 0.5 MG tablet Take 0.5 mg by mouth at bedtime. 04/26/2017 ??? terazosin (HYTRIN) 5 MG capsule Take 5 mg by mouth at bedtime. 04/26/2017 ??? [DISCONTINUED] acetaminophen (TYLENOL ARTHRITIS PAIN) 650 MG CR tablet Take by mouth. 04/28/2017:Received from: [facility] [place] [facility] Takes 1 tablet as needed. ??? [DISCONTINUED] atorvastatin (LIPITOR) 40 MG tablet Take 40 mg by mouth. 04/28/2017: Received from: [facility] Received Sig: Take 1 tablet by mouth once daily. ??? [DISCONTINUED] desonide (DESOWEN) 0.05 % lotion Apply topically. 04/28/2017: Received from: [facility] Received Sig: Apply topically to affected area(s) 2 timesdaily. ??? [DISCONTINUED] diclofenac (VOLTAREN) 75 MG EC tablet Take 75 mg by mouth. 04/28/2017: Received from: [facility] Received Sig: Take 1 tablet by mouth 2 times daily with meals. ??? [DISCONTINUED] diflorasone (PSORCON) 0.05 % ointment Apply topically. 04/28/2017: Received from: [facility] Received Sig: Apply topically to affected area(s) once daily. ??? [DISCONTINUED] gabapentin (NEURONTIN) 300 MG capsule Start 1 pill QHS, increase up to TID prn 04/28/2017: Received from: [facility] ??? [DISCONTINUED] HYDROcodone-acetaminophen (NORCO) 7.5-325 mg per tablet Take 1 tablet by mouth. 04/28/2017: Received from: [facility] Received Sig: Take 1 tabletby mouth every 4 hours if needed for Pain May take 1.5 every 4 hours for severe pain ??? [DISCONTINUED] metoprolol tartrate (LOPRESSOR) 50 MG tablet Take 50 mg by mouth. 04/28/2017: Received from: [facility] Received Sig: Take 1 tablet by mouth 2 times daily. ??? [DISCONTINUED] miSOPROStol (CYTOTEC) 200 MCG tablet Take 200 mcg by mouth. 04/28/2017: Received from: [facility] Received Sig: Take 1 tablet by mouth 2 times daily with meals. ??? [DISCONTINUED] morphine (MS CONTIN) 15 MG 12 hr tablet Take 15 mg by mouth. 04/28/2017: Received from: [facility] Received Sig: Take 1 tablet by mouth 2 times daily ??? [DISCONTINUED] multivitamin (ONE A DAY) per tablet Take by mouth. 04/28/2017: Received from: [facility] Received Sig: take 1 tablet by oral route once daily with food ??? [DISCONTINUED] pramipexole (MIRAPEX) 0.5 MG tablet Take 0.5 mg by mouth. 04/28/2017: [facility] Re[facility] Sig: Take 1 tablet by mouth at bedtime. ??? [DISCONTINUED] terazosin (HYTRIN) 5 MG capsule Take 5 mg by mouth. 04/28/2017: [facility] Received Sig: Take 1 capsule by mouth at bedtime. Information source(s): Patient Summary of Changes to SALES MARKETING COORDINATOR Med List New: dulcolax, calcium +d Discontinued: none Changed: diclofenac to qday; misoprostol to qday; mirapex to qhs; Patient was asked about OTC/herbal products specifically. SALES MARKETING COORDINATOR med list reflects this. Based on the pharmacist???s assessment, the SALES MARKETING COORDINATOR med list information appears reliable Patient appears compliant: Yes Allergies were reviewed, assessed, and updated with the patient. Medications currently not available for use during hospital stay. Family/Patient sales representative facility services states they will bring topicals to [facility]. Thank you for the opportunity to participate in the care of this patient. Jeanette Santana, PharmD 04/28/2017 8:59 AM ABETHT Dilshad John MD - 04/28/2017 8:27 AM CDT PROGRESS NOTES second visit Speedy Hendricks, 1940. 76 y.o. DOS: 04/28/2017 Assessment and Plans: Lumbar radiculopathy, likely due to hardware displacement in fall: Patient with worsening pain and radicular symptoms since he fell on the stairs [address] obtained in ortho clinic showed hardware is loose. Patient admitted because symptoms have progressed to the point he can't function at home. - [facility] consult, patient of Dr Mcclure - YEVGENIY dilaudid. He also does ok with oral oxycodone and [place] - NPO, IVMF -Also has ordered for steroids. There are consult has been appreciated. Plan to do MRI for further evaluation of the lumbar spine. - Hold PT until ortho gives blessing - Continue gabapentin - Check renal function, INR and Hgb in case of surgery ??Urine retention in ED -Concerned this could be related to his spinal pathology. Recheck PVR on the floor -chapman or straight cath as indicated -on terazocin ??AAA -Family concerned about an XR where the AAA appeared to be 5.5cm in diameter. PCP just obtained US that confirmed it 4.2cm and unchanged. ??HTN, chronic, mildly elevated -BP poorly controlled in ED. Family worried about this because of his AAA. - Monitor BP - Continue home metoprolol and Hytrin - Hydralazine PRN CKD, stage 2 -follow renal function Discharge disposition/ Anticipated discharge: Defer to orthopedics Barrier/s to discharge: see above active problems Pertinent labs and imaging results: Noted and reviewed. Code Status: Full Code Pain management: as ordered Consults: Orthopedic consult Subjective: Patient is feeling stable at this time. He has been in the bed because of back discomfort. Otherwiseis feeling well. Pain: Fairly controlled Patient is eating-was able to eat breakfast. Breathing: Denies any problem Chest pain: None Abdomen: Denies any abdominal pain or nausea Bowel movements: None yet Other acute issues:- Review of Systems: Vital signs: BP 166/83 (Patient Position: Lying) Pulse 81 Temp 97.9 ??F (36.6 ??C) (Oral) Resp18 Ht 5' 10 (1.778 m) Wt 200 lb 4.8 oz (90.9 kg) SpO2 97% BMI 28.74 kg/m2 Weight is stable so far Change in mental status- no Diarrhea or GI problem- no Nausea or vomiting- no Acute focal neurologic deficits- no Shortness of breath- no Chest pain- no Abdominal pain- no Melena or hematochezia- no Calf tenderness- no Bleeding- no Pertinent positives as mentioned above. Rest of 12-point review of systems negativ Physical Examination: Telemetry: -- Temp: [97.6 ??F (36.4 ??C)-98.4 ??F (36.9 ??C)] 97.6 ??F (36.4 ??C) Heart Rate: [59-88] 68 Resp: [11-20] 16 BP: (147-207)/(78-99) 147/79 SpO2: [93 %-99 %] 97 % GEN: Awake, Not in distress; responding to questions- HEAD: no jaundice noted, NECK: no neck stiffness, no JVD; CVS: rhythm regular LUNGS: crackles absent ; wheezing absent ; stridor- absent ABD: BS (+), Soft, No area of tenderness ; abdomen is benign EXT: no edema, no calf tenderness NEURO: No acute focal weakness except for the fact that he is in pain and refuses to move that much because of pain in the lower back. He is otherwise able to move all 4 extremities. PSYCHIATRY: Patient not agitated or depressed MUSCULOSKELETAL: joint pain or effusion-none; focal erythema/warmth or breaks in the skin-none Labs: I have reviewed the following lab results: Recent Results (from the past 24 hour(s)) Basic Metabolic Panel Collection Time: 04/28/17 1:59 AM Result Value Ref Range Sodium 141 136 - 145 mmol/L Potassium 4.0 3.5 - 5.0 mmol/L Chloride 109 (H) 98 - 107 mmol/L CO2 22 22 - 31 mmol/L Anion Gap, Calculation 10 5 - 18 mmol/L Glucose 115 70 - 125 mg/dL Calcium 9.0 8.5 - 10.5 mg/dL BUN 33 (H) 8 - 28 mg/dL Creatinine 1.49 (H) 0.70 - 1.30 mg/dL GFR MDRD Af Amer 56 (L) >60 mL/min/1.73m2 GFR MDRD Non Af Amer 46 (L) >60 mL/min/1.73m2 HM1 (CBC with Diff) Collection Time: 04/28/17 1:59 AM Result Value Ref Range WBC 9.0 4.0 - 11.0 thou/uL RBC 4.21 (L) 4.40 - 6.20 mill/uL Hemoglobin 13.6 (L) 14.0 - 18.0 g/dL Hematocrit 39.7 (L) 40.0 - 54.0 % MCV 94 80 - 100 fL MCH 32.3 27.0 - 34.0 pg MCHC 34.3 32.0 - 36.0 g/dL RDW 12.5 11.0 - 14.5 % Platelets 164 140 - 440 thou/uL MPV 11.2 8.5 - 12.5 fL Neutrophils % 65 50 - 70 % Lymphocytes % 21 20 - 40 % Monocytes % 11 (H) 2 - 10 % Eosinophils % 3 0 - 6 % Basophils % 0 0 - 2 % Neutrophils Absolute 5.8 2.0 - 7.7 thou/uL Lymphocytes Absolute 1.9 0.8 - 4.4 thou/uL Monocytes Absolute 1.0 (H) 0.0 - 0.9 thou/uL Eosinophils Absolute 0.2 0.0 - 0.4 thou/uL Basophils Absolute 0.0 0.0 - 0.2 thou/uL Protime-INR Collection Time: 04/28/17 1:59 AM Result Value Ref Range INR 0.99 0.90 - 1.10 Radiology: I have reviewed the following imaging results: No results found. Total care time spent for this patient is more than 25 minutes, more than half of which was spent onreview of labs, test results and coordination of care. Talked to patient. Dilshad John MD [facility] Hospitalist documented in this encounter H&P Notes Mili Monet MD - 04/28/2017 2:30 AM CDT Admission History and Physical Speedy HendricksSHREYA 1940, [facility] Prd Acute low back pain due to trauma [M54.5] PCP: Kannan Nieto MD, Code status: Full Code Extended Emergency Contact Information Primary Emergency Contact: Sania Hendricks Address: [address] [place] [address] [place] Relation: Spouse Secondary Emergency Contact: Chastity Hendricks [facility] [place] Relation: Child Date of Service: 04/28/2017 Assessment and Plan: Speedy Hendricks is a 76 y.o. male with history of L1-L5 fusion, HTN and AAA presents for evaluation of worsening lumbar radicular symptoms and pain, now to the point that he can't function at home. Lumbar radiculopathy, likely due to hardware displacement in fall: Patient with worsening pain and radicular symptoms since he fell on the stairs [address] obtained in ortho clinic showed hardware is loose. Patient admitted because symptoms have progressed to the point he can't function at home. - [facility] consult, patient of Dr Mcclure - IV dilaudid. He also does ok with oral oxycodone and [place] - NPO, IVMF - Consider steroid but will wait until ortho sees - Hold PT until ortho gives blessing - Continue gabapentin - Check renal function, INR and Hgb in case of surgery Urine retention in ED: Concerned this could be related to his spinal pathology. Recheck PVR on the floor AAA: Family concerned about an XR where the AAA appeared to be 5.5cm in diameter. PCP just obtained US that confirmed it 4.2cm and unchanged. HTN: BP poorly controlled in ED. Family worried about this because of his AAA. - Monitor BP - Continue home metoprolol and Hytrin - Hydralazine PRN History of steroid induced hyperglycemia: Last A1c 5.3. FENGI: NPO, IVF VTE prophylaxis: Moderate risk. Holding prophylaxis in case of imminent procedure Disposition: Inpatient Length of Stay: Anticipate greater than 2 midnight hospitalization Code status: Full Chief Complaint: back and leg pain, unable to walk HPI: Speedy Hendricks is a 76 y.o. male with history of L1-L5 fusion, HTN and AAA presents for evaluation of worsening low back pain and trouble walking after he fell on the stairs on 04/04. He stumbled and fell up the stairs on that date. Initially he did not have any trouble but over the next 3-4 days had worsening pain. He presented to his PCP for evaluation, XR was obtained that did not show any fracture. He was prescribed [place]. The pain did not improve. Patient saw Ortho on 04/22 and was prescribed aMedrol dosepak. He did feel that this helped. CT was obtained that showed that his hardware was loose. He states when the dosepak was completed, he noticed symptoms returning rapidly. He has been having bowel and bladder incontinence. Progressively worsening difficulty walking, getting up from chair. Severe pain with sitting. He saw his PCP yesterday and was started on MS Contin and gabapentin. Last night patient couldn't function at home and family could not care for him with him being this weak and painful. Brought him in for evaluation and management. Patient notes pain shooting down the backs of both legs. Denies fever, chills, chest pain, dyspnea, n/v/d/c, rash, edema. Has been having a sensation of urine retention today and RN noted PVR of 299cc in ED. Medical History Reviewed by myself with patient Active Ambulatory (Non-Hospital) Problems Diagnosis ??? Hyperglycemia, drug-induced ??? Lumbar radiculopathy ??? HLD (hyperlipidemia) ??? BPH (benign prostatic hyperplasia) ??? Spinal stenosis, lumbar region, with neurogenic claudication ??? Hypertension ??? MRSA (methicillin resistant staph aureus) culture positive ??? Diabetes mellitus ??? Lumbar stenosis ??? AAA (abdominal aortic aneurysm) Past Medical History: Diagnosis Date ??? AAA (abdominal aortic aneurysm) ??? Chronic pain disorder ??? Diabetes mellitus ??? Hypertension ??? Lumbar stenosis ??? MRSA (methicillin resistant staph aureus) culture positive ??? Neck pain Surgical History Reviewed by myself with patient Past Surgical History: Procedure Laterality Date ??? APPENDECTOMY ??? BACK SURGERY cervical x2,lumbar x2 ??? CERVICAL FUSION C-3,4,5,7 ??? decortification left lung ??? FOOT SURGERY ??? HERNIA REPAIR ??? Left Lung Surgery 1984 ??? LUMBAR LAMINECTOMY Bilateral 05/03/2014 Procedure: BILATERAL L2-3 AND L3-4 LAMINECTOMY REVISION L4 LAMINOTOMY NON- INSTRUMENTED FUSION L3-4 ; Surgeon: Hang Mcclure MD; Location: [facility]; Service: ??? TONSILLECTOMY Allergies Reviewed by myself with patient Allergies Allergen Reactions ??? Norvasc [Amlodipine] Swelling ??? Penicillins Hives ??? Procaine Hives novacaine Prior to Admission Medications Prescriptions Prior to Admission Medication Sig Dispense Refill Last Dose ??? acetaminophen (TYLENOL) 650 MG CR tablet Take 650 mg by mouth every 8 (eight) hours as needed for pain. ??? atorvastatin (LIPITOR) 40 MG tablet Take 40 mg by mouth at bedtime. ??? desonide (DESOWEN) 0.05 % cream Apply topically 2 (two) times a day. ??? diclofenac (VOLTAREN) 75 MG EC tablet Take 75 mg by mouth 2 (two) times a day. ??? diflorasone (PSORCON) 0.05 % cream Apply topically 3 (three) times a day. ??? gabapentin (NEURONTIN) 300 MG capsule Take 300 mg by mouth 3 (three) times a day. ??? HYDROcodone-acetaminophen (NORCO) 7.5-325 mg per tablet Take 1 tablet by mouth every 6 (six) hours as needed for pain. ??? metoprolol tartrate (LOPRESSOR) 50 MG tablet Take 50 mg by mouth 2 (two) times a day. ??? miSOPROStol (CYTOTEC) 200 MCG tablet Take 200 mcg by mouth 4 (four) times a day. ??? morphine (MS CONTIN) 15 MG 12 hr tablet Take 15 mg by mouth 2 (two) times a day. ??? multivitamin,[id number]-[id number] (COMPLETE MULTIVITAMIN) Tab Take by mouth. ??? pramipexole (MIRAPEX) 0.5 MG tablet Take 0.5 mg by mouth 3 (three) times a day. ??? terazosin (HYTRIN) 5 MG capsule Take 5 mg by mouth at bedtime. Social History Reviewed by myself with patient He reports that he quit smoking about 32 years ago. His smoking use included Cigarettes. He has a 15.00 pack-year smoking history. He does not have any smokeless tobacco history on file. He reports that he drinks about 9.0 oz of alcohol per week He reports that he does not use illicit drugs. Social History Social History Narrative He severed in the [email or web address]. 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 Family History Reviewed by myself with patient family history includes Aneurysm in his father; Coronary artery disease in his brother; No Medical Problems in his daughter; Stroke in his mother. Review Of Systems: 12-point ROS negative, except as noted in HPI Physical Exam: BP (!) 184/98 Pulse 88 Temp 98.4 ??F (36.9 ??C) Resp 20 Ht 5' 10 (1.778 m) Wt 200 lb (90.7 kg) SpO2 99% BMI 28.7 kg/m2 Body mass index is 28.7 kg/(m^2). General: Well-appearing male lying in hospital bed not in acute distress, oriented x3 HEENT: Head normocephalic atraumatic, oral mucosa moist. Sclerae anicteric CV: Regular rate and rhythm, no murmurs Resp: Lungs clear to auscultation bilaterally, no wheezes, rales, or rhonchi GI: Belly soft, nontender, nondistended, bowel sounds present Skin: No rashes or lesions Extremities: No peripheral edema Psych: Normal affect, mood euthymic Neuro: Strength 4/5 BLE and exam limited by pain. Strength 5/5 BUE. CN II-XII grossly intact Results for orders placed or performed during the hospital encounter of 11/29/14 MRSA culture Result Value Ref Range Culture No MRSA isolated Hemoglobin Result Value Ref Range Hemoglobin 13.7 (L) 14.0 - 18.0 g/dL Platelet count Result Value Ref Range Platelets 120 (L) 140 - 440 thou/uL Type and Screen Result Value Ref Range ABORh O POS Antibody Screen Positive Rare Antisera Typing, Patient Result Value Ref Range K Antigen, Patient Typing Negative Crossmatch Result Value Ref Range Crossmatch COMPATIBLE Unit Type O Pos Unit Number [id number] Status Released Component Red Blood Cells PRODUCT CODE [id number] Crossmatch Result Value Ref Range Crossmatch COMPATIBLE Unit Type O Pos Unit Number [id number] Status Released Component Red Blood Cells PRODUCT CODE [id number] Creatinine Result Value Ref Range Creatinine 1.34 (H) 0.70 - 1.30 mg/dL GFR MDRD Af Amer >60 >60 mL/min/1.73m2 GFR MDRD Non Af Amer 52 (L) >60 mL/min/1.73m2 Antibody Identification Result Value Ref Range Antibody ID > 3hr for more blood;Anti-[place] No new imaging obtained EKG: Normal sinus rhythm rate 62 bpm. No previous tracing for comparison Pertinent Labs/EKG/XRAY Reviewed Social History, Family History, PMH, PSH, Medications and Allergies reviewed. Total time: 70 minutes with >50% time spent with coordination of care and counseling reviewing plan of care with patient and family 04/28/2017 Mili Monet MD [facility] Medicine Service documented in this encounter Consult Notes Rae Campo PA-C - 04/28/2017 12:49 PM CDT ORTHOPEDIC CONSULTATION Consultation Speedy HendricksSHREYA 1940, [facility] Prd Acute low back pain due to trauma [M54.5] PCP: Kannan Nieto MD, Code status: Full Code Extended Emergency Contact Information Primary Emergency Contact: Sania Hendricks Address: [address] [place], [place] [id number] [facility] [place] Relation: Spouse Secondary Emergency Contact: Chastity Hendricks [facility] [place] Relation: Child CHIEF COMPLAINT: Acute low back pain due to trauma HISTORY OF PRESENT ILLNESS: The patient is seen in orthopedic consultation at the request of Dr. Monet. The patient is a 76 y.o.male with a history of an L1-5 fusion who presents with pain in his low back, buttock and bilateral legs. He states that he fell going up the stairs on 04/04 and began having pain a few days later. He saw his PCP one week later and had a lumbar spine xray done which was normal. The pain continue to progress and he was seen [facility] on [facility]22 and was give a medrol dose pack which gave him somepain relief, but the pain returned once the dose pack was finished. He also had a CT scan ordered which he had done at [facility]. He was scheduled to see Dr. Mcclure in clinic today, but last night the pain was so severe, that he came to the hospital. He states that his pain is primarily located in his buttocks and his legs feel achey. He denies any sharp or shooting pains. He is most comfortable when layingflat or standing, sitting up is very painful. He is having difficulty ambulating due to both pain and weakness. He has been having urinary retention since in the hospital which he attributes to the pain. He denies any loss of sensation or incontinence. No new numbness or tingling. PAST MEDICAL HISTORY: Active Ambulatory (Non-Hospital) Problems Diagnosis ??? HLD (hyperlipidemia) ??? BPH (benign prostatic hyperplasia) ??? Spinal stenosis, lumbar region, with neurogenic claudication ??? MRSA (methicillin resistant staph aureus) culture positive ??? Diabetes mellitus ??? Lumbar stenosis Past Medical History: Diagnosis Date ??? AAA (abdominal aortic aneurysm) ??? Chronic pain disorder ??? Diabetes mellitus ??? Hypertension ??? Lumbar stenosis ??? MRSA (methicillin resistant staph aureus) culture positive ??? Neck pain ALLERGIES: Review of patient's allergies indicates Allergies Allergen Reactions ??? Norvasc [Amlodipine] Swelling ??? Penicillins Hives ??? Procaine Hives novacaine MEDICATIONS UPON ADMISSION: Medications were reviewed. They include: Prescriptions Prior to Admission Medication Sig Dispense Refill Last Dose ??? acetaminophen (TYLENOL) 650 MG CR tablet Take 1,300 mg by mouth every 8 (eight) hours as needed for pain. 04/26/2017 ??? atorvastatin (LIPITOR) 40 MG tablet Take 40 mg by mouth at bedtime. 04/26/2017 ??? bisacodyl (DULCOLAX) 5 mg EC tablet Take 5-10 mg by mouth daily. 04/27/2017 at Unknown time ??? calcium-vitamin D (CALCIUM-VITAMIN D) 500 mg(1,250mg) -200 unit per tablet Take 1 tablet by mouth daily. Past Week at Unknown time ??? desonide (DESOWEN) 0.05 % cream Apply 1 application topically 2 (two) times a day as needed. Past Week at Unknown time ??? diclofenac (VOLTAREN) 75 MG EC tablet Take 75 mg by mouth at bedtime. 04/26/2017 ??? diflorasone (PSORCON) 0.05 % cream Apply 1 application topically 3 (three) times a day as needed. Past Week at Unknown time ??? gabapentin (NEURONTIN) 300 MG capsule Take 300 mg by mouth 3 (three) times a day. 04/27/2017 at Unknown time ??? HYDROcodone-acetaminophen (NORCO) 7.5-325 mg per tablet Take 1 tablet by mouth every 6 (six) hours as needed for pain. 04/27/2017 at Unknown time ??? metoprolol tartrate (LOPRESSOR) 50 MG tablet Take 50 mg by mouth 2 (two) times a day. 04/27/2017 at Unknown time ??? miSOPROStol (CYTOTEC) 200 MCG tablet Take 200 mcg by mouth at bedtime. 04/26/2017 at Unknown time ??? morphine (MS CONTIN) 15 MG 12 hr tablet Take 15 mg by mouth 2 (two) times a day. 04/27/2017 at just started 04/27 ??? multivitamin,kr-ofxw-khlegaed (COMPLETE MULTIVITAMIN) Tab Take 1 tablet by mouth daily. Past Week at Unknown time ??? pramipexole (MIRAPEX) 0.5 MG tablet Take 0.5 mg by mouth at bedtime. 04/26/2017 ??? terazosin (HYTRIN) 5 MG capsule Take 5 mg by mouth at bedtime. 04/26/2017 SOCIAL HISTORY: he reports that he quit smoking about 32 years ago. His smoking use included Cigarettes. He has a 15.00 pack-year smoking history. He does not have any smokeless tobacco history on file. He reports that he drinks about 9.0 oz of alcohol per week He reports that he does not use illicit drugs. FAMILY HISTORY: family history includes Aneurysm in his father; Coronary artery disease in his brother; No Medical Problems in his daughter; Stroke in his mother. REVIEW OF SYSTEMS: See HPI, otherwise negative PHYSICAL EXAMINATION: Vitals: Temp: [97.6 ??F (36.4 ??C)-98.4 ??F (36.9 ??C)] 97.6 ??F (36.4 ??C) Heart Rate: [55-88] 55 Resp: [11-20] 16 BP: (147-207)/(78-99) 151/83 General: On examination, the patient is resting comfortably, NAD, awake and alert and oriented to person, place, time, and and general circumstances SKIN: There is no evidence of skin breakdown. There is a scar of his lumbar spine due to previous spine fusion. Pulses: dorsalis pedis and posterior tibial pulse is intact and equal bilaterally Sensation: intact and equal bilaterally to the distal lower extremities. Tenderness: TTP over the buttocks bilaterally, especially over the SI joints. No TTP over the lumbarspine. ROM: Appropriate flexion and extension of the toes. Dorsi/plantarflexion intact and equal bilaterally. Knee flexion and extension was limited due to pain in low back and buttock. Motor: 5/5 strength with dorsi/plantarflexion. Strength testing limited in the rest of the BLE due to pain. Contralateral side= Full range of motion, Negative joint instability findings, 5/5 motor groups about the joint, Non-tender. RADIOGRAPHIC EVALUATION: Previous CT scan report not available in the hospital, but report the L4 screws were loosened. This CT scan was reviewed by Dr. Mcclure who only saw very mild loosening. Lumbar spine MRI is pending PERTINENT LABS: Lab Results: personally reviewed. Lab Results Component Value Date NA 141 04/28/2017 K 4.0 04/28/2017 CL 109 (H) 04/28/2017 CO2 22 04/28/2017 BUN 33 (H) 04/28/2017 CREATININE 1.49 (H) 04/28/2017 CALCIUM 9.0 04/28/2017 Lab Results Component Value Date WBC 9.0 04/28/2017 WBC 9.6 05/06/2014 HGB 13.6 (L) 04/28/2017 HCT 39.7 (L) 04/28/2017 MCV 94 04/28/2017 PLT 164 04/28/2017 IMPRESSION: Low back, buttock and leg pain, MRI to r/o sacral insufficiency fractrue PLAN: This patient was discussed with Dr. Mcclure and Dr. Burger, on-call surgeon for [facility] and they are in agreement with the following plan. Upon Dr. Mcclure' review of the CT scan, he did not see anything of concern and saw only mild loosening of the L4 screws. Lumbar spine MRI was ordered to ruleout a compression fracture or a sacral insufficiency fracture which commonly occur in patient's withmulti-level fusions. Steroid will be ordered. Continue to work on pain control. PT/OT eval and treat. Ortho will continue to follow this patient. Thank you for including [facility] in the care of Speedy Hendricks. It has been a pleasure participating in his care. Rae Campo PA-C Date: 04/28/2017 Time: 12:49 PM CC1: Dilshad John MD CC2: Kannan Nieto MD documented in this encounter ED Notes Historical Provider - 04/28/2017 1:45 AM CDT eMERGENCY dEPARTMENT eNCOUnter CHIEF COMPLAINT Chief Complaint Patient presents with ??? Back Pain ??? Leg Pain HPI Speedy Hendricks is a 76 y.o. male with pertinent past medical history for surgical fusion from L5-S1who presents to this ED for evaluation of back pain. The patient notes having multiple back surgeries performed in the past, but was recovering from them reportedly well until a couple of days ago whenhe had a mechanical fall to the ground. Since then, the patient has had progressively worsening low back pain that has been radiating down his bilateral legs. He denies any LOC, head, or neck trauma from the fall. He is now to a point where he cannot ambulate. The patient had a CT since the fall whichwas found to show loose bolts and was otherwise abnormal, as well. The patient's family consists of three daughters who feel they are unable to properly care for the patient due to the patient's house having two flights of 14 stairs and the patient being a fairly large man. The family would like thepatient to be admitted. Currently in the ED, the patient endorses constant aching pain localized to his low back with radiation to his legs and rates his pain 10/10 in severity. He denies any definite alleviating factors. He denies any recent weakness, tingling, numbness, saddle anesthesia, urinary or stool incontinence, neck pain, fever, chills, chest pain, shortness of breath, or any other associated injuries or complaints. This document serves as a record of services performed by Dr. Drake Damon MD it was created on their behalf by Jhon Park, a trained medical insurance clerk. The creation of this record is based on the scribes personal observations and the providers statements to him. This document has been checked and approved by the attending provider. PAST MEDICAL HISTORY Past Surgical History: Procedure Laterality Date ??? APPENDECTOMY ??? BACK SURGERY cervical x2,lumbar x2 ??? CERVICAL FUSION C-3,4,5,7 ??? decortification left lung ??? Left Lung Surgery 1984 ??? LUMBAR LAMINECTOMY Bilateral 05/03/2014 Procedure: BILATERAL L2-3 AND L3-4 LAMINECTOMY REVISION L4 LAMINOTOMY NON- INSTRUMENTED FUSION L3-4 ; Surgeon: Hang Mcclure MD; Location: [facility] Main OR; Service: ??? TONSILLECTOMY Past Medical History: Diagnosis Date ??? AAA (abdominal aortic aneurysm) ??? Chronic pain disorder ??? Diabetes mellitus ??? Hypertension ??? Lumbar stenosis ??? MRSA (methicillin resistant staph aureus) culture positive ??? Neck pain CURRENT MEDICATIONS Patient's Medications New Prescriptions No medications on file Previous Medications ATORVASTATIN (LIPITOR) 40 MG TABLET Take 40 mg by mouth bedtime. CALCIUM CARBONATE-VITAMIN D3 (CALCIUM 600 + D,3,) 600 MG(1,500MG) -200 UNIT PER TABLET Take 1 tablet by mouth daily. METOPROLOL (LOPRESSOR) 50 MG TABLET Take 50 mg by mouth 2 (two) times a day. MULTIVITAMIN CAPSULE Take 1 capsule by mouth daily. TAMSULOSIN (FLOMAX) 0.4 MG CP24 Take 0.4 mg by mouth daily after supper. After a meal TERAZOSIN (HYTRIN) 5 MG CAPSULE Take 5 mg by mouth bedtime. Modified Medications No medications on file Discontinued Medications No medications on file ALLERGIES Allergies Allergen Reactions ??? Norvasc [Amlodipine] Swelling ??? Penicillins Hives ??? Procaine Hives novacaine FAMILY HISTORY No family history on file. SOCIAL HISTORY Social History Social History ??? Marital status: Spouse name: N/A ??? Number of children: N/A ??? Years of education: N/A Social History Main Topics ??? Smoking status: Former Smoker ??? Smokeless tobacco: Not on file ??? Alcohol use 6.0 oz/week 10 Cans of beer per week ??? Drug use: Not on file ??? Sexual activity: Not on file Other Topics Concern ??? Not on file Social History Narrative ??? No narrative on file REVIEW OF SYSTEMS Constitutional: Denies fever, chills, weight loss or weakness Eyes: Denies photophobia or discharge HENT: Denies sore throat or ear pain Respiratory: Denies cough or shortness of breath Cardiovascular: Denies chest pain, palpitations or leg swelling GI: Denies abdominal pain, nausea, vomiting, or dark, bloody stools. : Denies hematuria, dysuria, or flank pain Musculoskeletal: Endorses back pain. Skin: Denies rash or wound Neurologic: Denies headache, focal weakness, or sensory changes Endocrine: Denies polyuria or polydypsia Lymphatic: Denies swollen glands Psychiatric: Denies depression, suicidal ideation or homicidal ideation. All other systems negative unless noted in HPI. PHYSICAL EXAM VITAL SIGNS: BP (!) 198/99 Comment: pt states his bp is always elevated and has been 190/100 relatedtohis pain. Pulse 88 Temp 98.4 ??F (36.9 ??C) Resp 20 Ht 5' 10 (1.778 m) Wt 200 lb (90.7 kg) SpO2 99% BMI 28.7 kg/m2 Constitutional: Lying awake in bed. HENT: Normocephalic, posterior pharynx wnl, mucous membranes moist and dark pink Eyes: PERRL, EOMI, Conjunctiva normal, No discharge, no scleral icterus. Respiratory: Breathing easily, clear and equal breath sounds Cardiovascular: Regular rate and rhythm. Peripheral pulses dp, pt, and radial are wnl. No peripheraledema GI: Bowel sounds normal, Soft, No tenderness, No flank tenderness, nondistended. :No CVA tenderness. Musculoskeletal: Pain to low back. Moves all extremities. No erythematous or swollen major joints. Integument: Warm, dry, no rash Lymphatic: No cervical lymphadenopathy Neurologic: Alert & oriented x 3, Normal motor function, Normal sensory function, No focal deficits noted. Normal speech. Psychiatric: Affect normal, Judgment normal, Mood normal. No obvious hallucinations at this time. ED MEDS New Prescriptions No medications on file ED COURSE & MEDICAL DECISION MAKING The patient was interviewed and examined. History in the chart was reviewed. Patient's family indicated that they were unable to care for the patient because he could not get out of bed. The patient was being taken care of by his daughter and she indicated that he would have to walk up 14 steps to getinto the home. Decision was made to admit the patient to see his orthopedic doctor the next day and because of the family's inability to care for the patient home FINAL DIAGNOSIS: No diagnosis found. At the conclusion of the encounter I discussed the results of all of the tests and the disposition with the patient. All questions were answered. The patient acknowledged understanding and was involvedin the decision making regarding the overall care plan. I discussed with patient the utility, limitations and findings of the exam/interventions/studies done during this visit as well as the list of differential diagnosis and symptoms to monitor/return to ER for. Additional verbal discharge instructions were provided. I, Dr. Drake Damon MD personally performed the services described in this documentation, as scribed by Jhon Park in my presence, and it is both accurate and complete. Drake Damon MD 04/29/17 0006 documented in this encounter Plan of Treatment Not on filedocumented as of this encounter Procedures Procedure Name Priority Date/Time Associated Diagnosis Comme nts MR LUMBAR SPINE W/O Routine 04/28/2017 2:12 PM Re sults for this CONTRAST CDT procedure are i n the results section. EKG 12-LEAD, STAT 04/28/2017 2:05 AM Results f or this TRACING ONLY CDT procedure are i n the results section. documented in this encounter Results MR Lumbar Spine w/o Contrast (04/28/2017 2:12 PM CDT) Anatomical Region Laterality Modality Spine, SUBRAD MR NEURO, UMP MR SPINE, RAD MR Other Specimen (Source) Anatomical Location Collection Method / Collectio n Time Received Time / Laterality Volume Impressions 04/29/2017 9:20 AM CDT CONCLUSION: 1. ??Osseous edema involving both sacral ala, somewhat more so on the right than the left. The pattern suggests nondisplaced insufficiency type sacral fractures. 2. ??Extensive postoperative changes wit h posterior cemented fusion from L2 through L4 and solid osseous fusion from L4 through S1 as above. Postoperative changes within the posterior paraspinal soft ti ssues including several small fluid lizbeth ections, presumably ceruminous. 3. ??At L3-4, suggestion of severe left neural foraminal stenosis; however, neural foramina are partially obscured by hardware artifact. 4. ??At L1-2, mild right neural foramina l stenosis. Narrative 04/29/2017 9:20 AM CDT [facility] MR LUMBAR SPINE WO CONTRAST 04/28/2017 2:12 PM INDICATION: Low back pain, prior lumbar surgery TECHNIQUE: Routine. CONTRAST: None COMPARISON: None. FINDINGS: Nomenclature is based on 5 lum bar type vertebral bodies. Broad thoracolumbar levocurvature. 2-3 mm retrolisthesis at multiple levels from T12 through L4. 2 mm anterolisthesis at L5-S1. Posteri or instrumented fusion from L2 through L 4. Solid interbody fusion from L4 through S1. Pre vious dorsal decompression at L3-4 and potentially also at L4-5 and L5-S1. Solid dorsolateral fusion from L3 through S1. Predominantly Modic type II endplate sign al changes at L1-2 and L2-3. No pars def ect. The conus tip is identified at L2. Extensive postoperative changes within the posterior paraspinal soft tissues including a small amount of fluid within the laminectomy defect at L3 and at L5-S1. The abdomi nal aorta is not diagnostically assessed . Osseous edema involving the right greater the le ft sacral ala concerning for sacral insufficiency fractures. T12-L1: Mild to moderate loss of disc he ight and signal. Shallow right foraminal and lateral disc osteophyte complex. Mild facet arthropathy. Low-grade narrowing of the right lateral recess. No spinal c anal stenosis. No right neural foraminal stenosis. No left neural foraminal stenosis. L1-L2: Moderate to advanced loss of disc height and signal, greater on the right. Mild circumferential disc osteophyte complex of asymmetric right foraminal and lateral component. Mild facet arthropathy. No spinal canal stenosis. Mild right neural foraminal stenosis. No left neural jakob inal stenosis. L2-L3: Moderate to advanced loss of disc height and signal, greater on the right. Circumferential disc osteophyte complex of asymmetric right foraminal and lateral component. Dorsolateral fusion. No spinal canal stenosis. Neural foramina partially obscured by hardware artifact. Partial e ffacement of the inferior neural foramina bilaterally. No significant right neural foraminal stenosis. No left neural foraminal stenosis. L3-L4: Moderate to advanced loss of disc height and signal, greater on the left. Circumferential disc osteophyte complex of asymmetric left foraminal and lateral component. Previous dorsolateral fusion. Dorsal decompression. No Spinal canal s tenosis. Neural foramina partially obscured by calderón rdware artifact. Mild right neural foraminal stenosis. Severe left neural foraminal stenosis. L4-L5: Solid interbody fusion. Minor res idual interbody spurring. Solid dorsolateral fusion. No spinal canal stenosis. No right neural foraminal stenosis. No left neural foraminal stenosis. L5-S1: Solid interbody fusion. Minor res idual interbody spurring. Solid dorsolateral fusion. No spinal canal stenosis. No right neural foraminal stenosis. No left neural foraminal stenosis. Procedure Note Néstor Emery MD - 03/25/2021F ormatting of this note might be different from the original. [facility] MR LUMBAR SPINE WO CONTRAST 04/28/2017 2:12 PM INDICATION: Low back pain, prior lumbar surgery TECHNIQUE: Routine. CONTRAST: None COMPARISON: None. FINDINGS: Nomenclature is based on 5 lum bar type vertebral bodies. Broad thoracolumbar levocurvature. 2-3 mm retrolisthesis at multiple levels from T12 through L4. 2 mm anterolisthesis at L5-S1. Posterior instrumented fusion from L2 through L4. Solid interbody fusion from L4 through S1. Pre vious dorsal decompression at L3-4 and potentially also at L4-5 and L5-S1. Solid dorsolateral fusion from L3 through S1. Predominantly Modic type II endplate signal changes at L1-2 and L2-3. No pars defect. The conus tip is identified at L2. Extensive postoperative changes within the posterior paraspinal soft tissues including a small amount of fluid within the laminectomy defect at L3 and at L5-S1. The abdominal aorta is not diagnostically assessed. Osseous edema involving the right greater the le ft sacral ala concerning for sacral insufficiency fractures. T12-L1: Mild to moderate loss of disc he ight and signal. Shallow right foraminal and lateral disc osteophyte complex. Mild facet arthropathy. Low-grade narrowing of the right lateral recess. No spinal canal stenosis. No right neural foraminal stenosis. No left neural foraminal stenosis. L1-L2: Moderate to advanced loss of disc height and signal, greater on the right. Mild circumferential disc osteophyte complex of asymmetric right foraminal and lateral component. Mild facet arthropathy. No spinal canal stenosis. Mild right neural foraminal stenosis. No left neural jakob inal stenosis. L2-L3: Moderate to advanced loss of disc height and signal, greater on the right. Circumferential disc osteophyte complex of asymmetric right foraminal and lateral component. Dorsolateral fusion. No spinal canal stenosis. Neural foramina partially obscured by hardware artifact. Partial e ffacement of the inferior neural foramina bilaterally. No significant right neural foraminal stenosis. No left neural foraminal stenosis. L3-L4: Moderate to advanced loss of disc height and signal, greater on the left. Circumferential disc osteophyte complex of asymmetric left foraminal and lateral component. Previous dorsolateral fusion. Dorsal decompression. No Spinal canal stenosis. Neural foramina partially obscured by calderón rdware artifact. Mild right neural foraminal stenosis. Severe left neural foraminal stenosis. L4-L5: Solid interbody fusion. Minor res idual interbody spurring. Solid dorsolateral fusion. No spinal canal stenosis. No right neural foraminal stenosis. No left neural foraminal stenosis. L5-S1: Solid interbody fusion. Minor res idual interbody spurring. Solid dorsolateral fusion. No spinal canal stenosis. No right neural foraminal stenosis. No left neural foraminal stenosis. IMPRESSION: CONCLUSION: 1. Osseous edema involving both sacral a la, somewhat more so on the right than the left. The pattern suggests nondisplaced insufficiency type sacral fractures. 2. Extensive postoperative changes with posterior cemented fusion from L2 through L4 and solid osseous fusion from L4 through S1 as above. Postoperative changes within the posterior paraspinal soft tissues including several small fluid collections, presumably ceruminous. 3. At L3-4, suggestion of severe left ne ural foraminal stenosis; however, neural foramina are partially obscured by hardware artifact. 4. At L1-2, mild right neural foraminal stenosis. Rae Campo PA-C IMG MRI ORDERABLES EKG 12-lead, tracing only (04/28/2017 2:05 AM CDT) [facility] Method Time Signature Systolic Blood 184 mmHg 04/28/2017 [facility] Pressure 8:51 AM CDT CONVERSION Diastolic Blood 98 mmHg 04/28/2017 [facility] Pressure 8:51 AM CDT CONVERSION Ventricular Rate 60 BPM 04/28/2017 [facility] 8:51 AM CDT CONVERSION Atrial Rate 60 BPM 04/28/2017 [facility] 8:51 AM CDT CONVERSION NV Interval 160 ms 04/28/2017 [facility] 8:51 AM CDT CONVERSION QRS Duration 88 ms 04/28/2017 [facility] 8:51 AM CDT CONVERSION QT 432 ms 04/28/2017 [facility] 8:51 AM CDT CONVERSION QTc 432 ms 04/28/2017 [facility] 8:51 AM CDT CONVERSION P Chambers 16 degrees 04/28/2017 [facility] 8:51 AM CDT CONVERSION R AXIS 16 degrees 04/28/2017 [facility] 8:51 AM CDT CONVERSION T Chambers 19 degrees 04/28/2017 [facility] 8:51 AM CDT CONVERSION Interpretation Normal sinus rhythm 04/28/2017 [facility] ECG Normal ECG 8:51 AM CDT CONVERSION No previous ECGs available Confirmed by VEL ??SUKHJINDER WELSH LOC:JN ([id number]) on 04/28/2017 8:5 1:37 AM Specimen Anatomical Collection Method Collection Time Receive d Time (Source) Location / / Volume Laterality 04/28/2017 2:05 AM 7 8:51 CDT AM CDT Drake Damon MD ECG ORDERABLES Performing Organization Address City/State/ZIP Code Phon e Number [facility] CONVERSION [facility] CONVERSION documented in this encounter Visit Diagnoses Diagnosis Acute low back pain due to trauma Lumbago documented in this encounter Care Teams 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
--- OUTSIDE RECORDS SUMMARY | 2022-05-28 05:06 | XMS_ITS | Encounter Summary ---
:1940 Author Organization [place] Address [address] [place] [id number] Care Team Providers Name Role Phone Primary Dr, Unknown Primary Care Provider Unavailable Encounter Details Date Type Department Care Team Description 11/29/2014 - Hospital Encounter [facility] Hang Mcclure phoebe stenosis, lumbar region, without neurogenic claudication; 12/01/2014 [facility] MD Koki AAA (abdominal aortic aneurysm) (H); [place] [facility] Diabetes mellitus (H); [address] [facility] ORTHOPEDICS Hypertension; Drive [address] BPH (benign prostatic hyperp lasia); [place], [place] [address] HLD (hyperlipidemia); [id number] [place], [place] Hyperglycemia, drug-induced; [phone] [id number] MRSA (methicillin resistant staph aureus ) culture positive Social History Tobacco Use Types Packs/Day Years [...] - Inhaled Oxygen Concentration - - Weight 90.7 kg (200 lb) 11/29/2014 9:33 AM BEAD WRAPPER Height 180.3 cm (5' 11) 11/29/2014 9:33 AM BEAD WRAPPER Body Mass Index 27.89 11/29/2014 9:33 AM BEAD WRAPPER documented in this encounter Discharge Summaries Dimas Hale - 12/01/2014 7:48 AM CST Orthopedics Discharge Summary Admission Date: 11/29/2014 Admission Diagnoses: Spinal stenosis, lumbar region, without neurogenic claudication [724.02] Thoracic or lumbosacral neuritis or radiculitis, unspecified [724.4] Discharge Date: 12/01/2014 Post-operative Day: 2 Days Post-Op Reason for Admission: The patient was admitted for the following: Procedure(s) (LRB): LEFT L2-3, L3-4 POSTERIOR FUSION AND L3-4 REVISION DECOMPRESSION (N/A) Following the procedure noted above the patient was transferred to the post-op floor and started on: Therapy: Physical Therapy and Occupational Therapy Anticoagulation Medications: None Complications: None Consultations: hospitalist for medication management Lab Results: Results from last 7 days Lab Units 11/29/14 1017 [address]-CREATININE mg/dL 1.34* Results from last 7 days Lab Units 11/29/[address]-HEMOGLOBIN g/dL 13.7* Active Problems: Lumbar radiculopathy HLD (hyperlipidemia) BPH (benign prostatic hyperplasia) Discharge Information: Condition at discharge: good Discharge destination: Home Follow-up Care: The patient will be followed in the office in about 2 weeks. Call [phone] if patient needs to schedule appointment. Dimas Hale PA-C Date: 12/01/2014 Time: 7:49 AM WRAPPER documented in this encounter Medications at Time [...] documented as of this encounter Progress Notes Néstor Fowler - 12/01/2014 2:00 PM CST S Ortho Progress Note Assessment/Plan: Procedure(s): LEFT L2-3, L3-4 POSTERIOR FUSION AND L3-4 REVISION DECOMPRESSION Post-operative Day: 2 Days Post-Op Active Problems: Spinal stenosis, lumbar region, with neurogenic claudication Hypertension MRSA (methicillin resistant staph aureus) culture positive AAA (abdominal aortic aneurysm) Lumbar radiculopathy HLD (hyperlipidemia) BPH (benign prostatic hyperplasia) Hyperglycemia, drug-induced LOS: 2 days -Chart was reviewed as this was my first day with the patient and found that patient has a history of positive MRSA. [facility] records were reviewed and patient had a positive MRSA swab September 2012. MRSA swab was done here in April 2014 which was negative. Will implement contact precautions. Will swab for MRSA today on the date of discharge. -Otherwise medically the patient has been stable. No opposition to discharge home. Continue cares and rehabilitation per ortho/PT/OT. Anticoagulation protocol: Ambulation Disposition: Per orthopedics Subjective: Patient is doing quite well. Up and ambulating. No chest pain. No shortness of breath. No nausea or vomiting. Good oral intake. Did discuss with patient and family the MRSA positive status. State that 4 years ago he had a positive MRSA wound in his toe. They are uncertain of any results of further MRSA testing since that time. Wound fully healed at the toe. Ready for discharge home. Review of Systems: As per below and subjective, all others negative. Pain: mild Pain location: Low back Neuro: No numbness, tingling, weakness, and motor function intact Pertinent items are noted in HPI. Current Facility-Administered Medications Medication Dose Route Frequency Provider Last Rate Last Dose ??? acetaminophen tablet 325 mg (TYLENOL) 325 mg Oral Q4H Marcelino Finch MD 325 mg at 12/01/14 1211 ??? atorvastatin tablet 40 mg (LIPITOR) 40 mg Oral QHS Macrelino Finch MD 40 mg at 11/30/148 ??? bisacodyl suppository 10 mg (DULCOLAX) 10 mg Rectal Daily PRN Daniele Rodgers PA-C ??? dextrose 5 % and sodium chloride 0.45 % with KCl 20 mEq/L infusion 75 mL/hr Intravenous Continuous Daniele Rodgers PA-C 75 mL/hr at 11/29/14 1637 ??? diphenhydrAMINE capsule 25 mg (BENADRYL) 25 mg Oral Q4H PRN Daniele Rodgers PA-C ??? diphenhydrAMINE injection 25 mg (BENADRYL) 25 mg Intravenous Q4H PRN Daniele Rodgers PA-C ??? gabapentin capsule 300 mg (NEURONTIN) 300 mg Oral Bedtime PRN MICHAEL Barrera ??? HYDROcodone-acetaminophen 7.5-325 mg per tablet 1 tablet (NORCO) 1 tablet Oral Q4H - RT Marcelino Finch MD 1 tablet at 12/01/14 1211 ??? HYDROmorphone injection 0.2 mg (DILAUDID) 0.2 mg Intravenous Q15 Min PRN Daniele Rodgers PA-C ??? HYDROmorphone injection 0.2-0.4 mg (DILAUDID) 0.2-0.4 mg Intravenous Q3H PRN Daniele Rodgers PA-C ??? loratadine tablet 10 mg (CLARITIN) 10 mg Oral Daily PRN Daniele Rodgers PA-C ??? magnesium hydroxide suspension 30 mL (MILK OF MAG) 30 mL Oral Daily PRN Daniele Rodgers PA-C ??? metoprolol tablet 50 mg (LOPRESSOR) 50 mg Oral BID Marcelino Finch MD 50 mg at 12/01/14 0854 ??? multivitamin with minerals 9 mg iron-400 mcg tablet 1 tablet (THERA-M) 1 tablet Oral DAILY Daniele Rodgers PA-C 1 tablet at 12/01/14 0854 ??? naloxone 0.4 mg (1 mL) (NARCAN) 0.1 mg Intravenous PRN Hang Mcclure MD Or ??? nalOXone injection 0.1-0.4 mg (NARCAN) 0.1-0.4 mg Intramuscular PRN Hang Mcclure MD ??? ondansetron injection 4 mg (ZOFRAN) 4 mg Intravenous Q4H PRN Daniele Rodgers PA-C Or ??? ondansetron tablet 8 mg (ZOFRAN) 8 mg Oral Q8H PRN Daniele Rodgers PA-C ??? oxyCODONE immediate release tablet 5-10 mg (ROXICODONE) 5-10 mg Oral Q3H PRN Daniele Rodgers PA-C 5 mg at 12/01/14 1352 ??? senna-docusate 8.6-50 mg tablet 1 tablet (PERICOLACE) 1 tablet Oral BID Daniele Rodgers PA-C 1 tablet at 12/01/14 0854 ??? sodium phosphates 133 mL rectal enema 1 enema (for FLEET) 1 enema Rectal Daily PRN Daniele Rodgers PA-C ??? tamsulosin 24 hr capsule 0.4 mg (FLOMAX) 0.4 mg Oral Daily after supper Marcelino Finch MD 0.4 mg at 11/30/14 1746 ??? terazosin capsule 5 mg (HYTRIN) 5 mg Oral QHS Marcelino Finch MD 5 mg at 11/30/142037 Objective: Vital signs in last 24 hours: Temp: [98 ??F (36.7 ??C)-98.4 ??F (36.9 ??C)] 98 ??F (36.7 ??C) Heart Rate: [87-96] 89 Resp: [16-18] 16 BP: (128-162)/(69-96) 128/69 mmHg SpO2: [97 %-100 %] 98 % Weight: Wt Readings from Last 1 Encounters: 11/29/14 0933 200 lb (90.719 kg) Weight change: Body mass index is 27.91 kg/(m^2). Intake/Output last 3 shifts: I/O last 3 completed shifts: In: 1680 [P.O.:1680] Out: 2770 [Urine:2550; Drains:220] Intake/Output this shift: I/O this shift: In: 360 [P.O.:360] Out: 600 [Urine:575; Drains:25] Physical Exam: General appearance: alert, appears stated age, cooperative and no distress Head: Normocephalic, without obvious abnormality, atraumatic Lungs: clear to auscultation bilaterally Heart: regular rate and rhythm, S1, S2 normal, no murmur, click, rub or gallop Abdomen: soft, non-tender; bowel sounds normal; no masses, no organomegaly Extremities: extremities normal, atraumatic, no cyanosis or edema, Homans sign is negative, no sign of DVT and no edema, redness or tenderness in the calves or thighs Pulses: 2+ and symmetric Skin: Skin color, texture, turgor normal. No rashes or lesions Neurologic: Grossly normal Wound status: was not inspected. Dressing left intact. Circulation, motion and sensation: Yes Calf tenderness: no tenderness bilateral Labs Personally Reviewed by Myself: No results found for this basename: INR, PROTIME Results from last 7 days Lab Units 11/29/14 1017 LN-HEMOGLOBIN g/dL 13.7* LN-PLATELET COUNT thou/uL 120* Fingerstick Blood Glucose: No results found for this basename: POCGLUFGR, in the last 48 hours Last Hbg A1C: No results found for this basename: HGBA1C No results found for this or any previous visit (from the past 48 hour(s)). MRSA 05/03/14 Culture No MRSA isolated MRSA CULTURE - Final result (09/22/2012 3:43 PM BEAD WRAPPER) [facility] Records Component Value Range SOURCE Nasal REPORT RELEASE TYPE Final Report CULTURE Note: Flowsheet view of Micro does not show all results. Specimen Other - Nasal Organism Antibiotic Method Susceptibility Mrsa isolated (methicillin-resistant staph aureus) _ N/A _ Imaging Personally Reviewed by Myself: Xr Lumbar Spine 2 Or 3 Vws Portable 11/29/2014 XR LUMBAR SPINE 2 OR 3 VWS PORTABLE 11/29/2014 1:38 PM INDICATION: Lumbar fusion COMPARISON: 05/03/2014 FINDINGS: Films obtained intraoperatively utilizing 0.65 minutes of fluoroscopy time. Spot views demonstrate sequential placement of pedicle screws and fixation rods bilaterally at L2-L3 andL4. Interbody bone plug at L4-5 with apparent removal of previous pedicle screws at L5. Disc space narrowing at L1-2, L2-3 and L3-4. Total time 40 minutes of which greater than 50% of the time was spent in counseling and coordinationof care. Néstor Fowler MD Date: 12/01/2014 Time: 2:00 PM [facility] WRAPPER Dimas Hale - 12/01/2014 7:25 AM CST Ortho Progress Note 2 Days Post-Op Procedure(s): LEFT L2-3, L3-4 POSTERIOR FUSION AND L3-4 REVISION DECOMPRESSION Subjective: Pain: mild Fever, chills: No Chest pain, SOB: No Nausea, vomiting: No Lightheadedness, dizziness: No Headache: No Calf pain: No Neuro: Patient denies new numbness or paresthesias Objective: Vital signs in last 24 hours Temp: [97.5 ??F (36.4 ??C)-98.8 ??F (37.1 ??C)] 98.4 ??F (36.9 ??C) Heart Rate: [87-124] 87 Resp: [16-20] 16 BP: (110-162)/(66-96) 153/96 mmHg General: A&Ox3, NAD Wound status: clean, dry, no drainage and intact. No erythema or warmth. Circulation, motion and sensation: clean, dry, no drainage and intact. No erythema or warmth. Swelling: mild Calf tenderness: no tenderness Juancarlos's: Negative Drain: None Pertinent Labs Lab Results: personally reviewed. Results from last 7 days Lab Units 11/29/14 1017 [address]-HEMOGLOBIN g/dL 13.7* Results from last 7 days Lab Units 11/29/14 [address]7 [address]-CREATININE mg/dL 1.34* Plan: Continue PT/OT. Doing excellent with minimal pain. Pull drain at 30cc or less. Once drain is pulled,patient is able to discharge home. F/u 2 weeks Weightbearing status: WBAT Anticoagulation: Kenan stockings and early ambulation. Discharge planning: Home Report completed by: Dimas Hale MS, PA-C Date: 12/01/2014 Time: 7:25 AM Low Dias - 11/30/2014 2:35 PM CST LEAD APPLIER TREATMENT NOTE Name: Speedy [facility] : 1940 Acupuncture Treatment Patient Type: Orthopedic Intervention Reason: Urinary Retention Patient complaint:: Unable to void Acupunture (Points):: [place] 3, 4, 6, St 29 Risks and benefits discussed. Low Ramirez L.Ac. Date: 11/30/2014 Time: 2:36 PM WRAPPER Marcelino Finch MD - 11/30/2014 8:13 AM CST [facility] Medicine Service Progress Note Assessment/Plan: -Lumbar stenosis, status post decompression and fusion POD1 . Postsurgical care per orthopedics. Continue with pain management. VTE prophylaxis with SCD. PT/OT today. -Hypertension, cont with metoprolol and Terazosin -Dyslipidemia, patient is on statin -Mild anemia. Continue to monitor. -BPH, Dial catheter placed in the OR. Voiding trial today when patient ambulate more. Continue withtamsulosin - History of AAA, last ultrasound showed 4 cm. no acute issue. Continue to monitor. -Borderline diabetes. Continue to monitor. Subjective: No acute issues overnight, no complaint. Tolerated regular diet. Up and out of bed. Active Medical Problems: Patient Active Problem List Diagnosis ??? Spinal stenosis, lumbar region, with neurogenic claudication ??? Hypertension ??? MRSA (methicillin resistant staph aureus) culture positive ??? Diabetes mellitus ??? Lumbar stenosis ??? AAA (abdominal aortic aneurysm) ??? Lumbar radiculopathy ??? HLD (hyperlipidemia) ??? BPH (benign prostatic hyperplasia) PMHx: Past Medical History Diagnosis Date ??? Hypertension ??? MRSA (methicillin resistant staph aureus) culture positive ??? AAA (abdominal aortic aneurysm) ??? Lumbar stenosis ??? Neck pain ??? Chronic pain disorder ??? Diabetes mellitus Pt denies DX. Past Hx of due to high steroids Objective: Vital signs in last 24 hours Temp: [96.1 ??F (35.6 ??C)-98.7 ??F (37.1 ??C)] 98 ??F (36.7 ??C) Heart Rate: [50-106] 98 Resp: [12-24] 16 BP: (105-165)/(58-105) 148/78 mmHg SpO2: [94 %-100 %] 97 % Review of Systems 10-point review of systems negative except as noted above. Physical Exam BP 148/78 Pulse 98 Temp(Src) 98 ??F (36.7 ??C) (Oral) Resp 16 Ht 5' 11 (1.803 m) Wt 200 lb (90.719 kg) BMI 27.91 kg/m2 SpO2 97% General Appearance: NAD Head: Normocephalic, without obvious abnormality, atraumatic Lungs: Clear to auscultation bilaterally, respirations unlabored Heart: Regular rate and rhythm, S1 and S2 normal, no murmur Abdomen: Soft, NT, ND Back Drain and dressing intact. Extremities: No edema, no joint inflamation, dorsal flex and extension intact. Pertinent Labs Lab Results: Personally reviewed Pertinent Radiology Radiology Results: personally reviewed the impression WRAPPER Radha Grey - 11/29/2014 5:01 PM CST Acute Pain Management Team Consulting provider: Dr. Mcclure/Dr. Finch POD#:0 Procedure: LEFT L2-3, L3-4 POSTERIOR FUSION AND L3-4 REVISION DECOMPRESSION Home pain regimen: Opioid status: Tolerant [place] 7.5/325 mg-1 tabs q 4 -6 h prn-pt reports taking no more than 6 /day Oxycodone 2.5-5 mg po q 4 h prn_juse recent Rx due to increased nerve pain L leg Arthrotec 75 mg po bid prn Current pain regimen: Will change standard regiment of oxycodone scheduled and oxycodone prn to [place] 7.5/325 and prn oxycodone. Dilaudid IV bumps prn severe pain Vitals/Objective: Weight: 90.719 kg (200 lb), BP: 128/66 mmHg, RR: 12, SpO2: 98% Pulse Readings from Last 1 Encounters: 11/29/14 74 Current pain score: Not able to rate-very sedated Past medical history: HTN, neck pain, lumbar stenosis, hx MRSA, see H&P for full history. Subjective: Pt post-op spine fusion/decompression today. Pt may be opioid tolerant , especially whenviewing Rx history of [place] 7.5/325, but he and family report him not taking more than 6 tablets perday of [place] 7.5/325, and have new Rx for oxycodone, but reports only taking 2.5 mg dose at a time. He is very sedated now, and will start out conservatively, not knowing exactly how much [place] he was taking at home. Pt and family reported he is very sensitive to oxycodone, but does well on [place]. Assessment/Plan: [place] 7.3/325 1- tablet every 4 hours Oxycodone -2.5 -5 mg po q 4 h prn BTP Discussed with Dr. Finch Will follow pt Radha Grey RPh 11/29/2014 5:02 PM WRAPPER Marcelino Finch MD - 11/29/2014 4:45 PM CST [facility] Medicine Service Progress Note Assessment/Plan: -Lumbar stenosis, status post decompression and fusion. Postsurgical care per orthopedics. Continue with pain management. VTE prophylaxis with SCD. -Hypertension, resume home medication metoprolol and Terazosin -Dyslipidemia, patient is on statin -Mild anemia. Continue to monitor. -BPH, Dial catheter placed in the OR. Voiding trial tomorrow when patient ambulate more. Continue with tamsulosin - History of AAA, last ultrasound showed 4 cm. no acute issue. Continue to monitor. -Borderline diabetes. Continue to monitor. Time spent in the care of this patient today was 35 minutes. More than 50% of total time spent face to face discussion with patient/family, review of records, and development of care plan Subjective: Patient is sleepy. However wake up and have a appropriate conversation. Denied any significant pain.No nausea, no chest pain, no shortness of breath. Active Medical Problems: Patient Active Problem List Diagnosis ??? Spinal stenosis, lumbar region, with neurogenic claudication ??? Hypertension ??? MRSA (methicillin resistant staph aureus) culture positive ??? Diabetes mellitus ??? Lumbar stenosis ??? AAA (abdominal aortic aneurysm) ??? Lumbar radiculopathy PMHx: Past Medical History Diagnosis Date ??? Hypertension ??? MRSA (methicillin resistant staph aureus) culture positive ??? AAA (abdominal aortic aneurysm) ??? Lumbar stenosis ??? Neck pain ??? Chronic pain disorder ??? Diabetes mellitus Pt denies DX. Past Hx of due to high steroids Objective: Vital signs in last 24 hours Temp: [97.5 ??F (36.4 ??C)-98.7 ??F (37.1 ??C)] 97.9 ??F (36.6 ??C) Heart Rate: [50-83] 74 Resp: [12-24] 12 BP: (116-165)/(58-105) 128/66 mmHg SpO2: [94 %-100 %] 98 % Review of Systems 10-point review of systems negative except as noted above. Physical Exam BP 128/66 Pulse 74 Temp(Src) 97.9 ??F (36.6 ??C) (Temporal) Resp 12 Ht 5' 11 (1.803 m) Wt200 lb (90.719 kg) BMI 27.91 kg/m2 SpO2 98% General Appearance: NAD Head: Normocephalic, without obvious abnormality, atraumatic Lungs: Clear to auscultation bilaterally, respirations unlabored Heart: Regular rate and rhythm, S1 and S2 normal, no murmur Abdomen: Soft, NT, ND Back Drain intact. Extremities: No edema, no joint inflamation, dorsal flex and extension intact. Pertinent Labs Lab Results: Personally reviewed Pertinent Radiology Radiology Results: personally reviewed the impression WRAPPER Saman Bernard - 11/29/2014 10:38 AM CST [facility] Hopes: Pt hopes to have his leg pain stop after surgery. Needs: Pt needs support of family. Resources: pt has his spouse and several family members in the room with him as resources and support. Additional Notes: pt joked with this cruller maker machine about Gaines's Day and [place] Yonatan's Day; to thischaplain, having a sense of humor is an additional resource for this patient. Prayer declined, visitonly. Follow up: None planned. Spiritual care upon request. WRAPPER documented in this encounter H&P Notes Hang Mcclure - 11/29/2014 10:46 AM CST The patient's history has been reviewed and there are no pertinent changes WRAPPER documented in this encounter Miscellaneous Notes Op Note - Hang Mcclure - 11/29/2014 1:30 PM CST DATE OF SERVICE: 11/29/2014 PREOPERATIVE DIAGNOSES: 1. Severe left-sided leg pain with foraminal stenosis L2-3 and L3-4 2. Failure of conservative measures. POSTOPERATIVE DIAGNOSES: 1. Severe left-sided leg pain with foraminal stenosis L2-3 and L3-4 2. Failure of conservative measures. PROCEDURES: 1. Left-sided transforaminal/transfacet decompression of the exiting L3 and traversing L4 nerve root. 2. Left-sided transforaminal/transfacet decompression of the exiting L2 and traversing L3 nerve root. 3. Right sided posterolateral fusion L2-3 and L3-4 4. Pedicle screw fixation placed in the pedicles of L2 L3 and L4 bilaterally. 5. Removal of instrumentation L4-5 6. Evaluation of fusion L4-5... The fusion was solid as expected ESTIMATED BLOOD LOSS: 400 mL. DRAINS: None. COMPLICATIONS: None perceived. SPECIMENS SENT: None. HISTORY OF PRESENT ILLNESS AND INDICATIONS FOR PROCEDURE: This is a 74-year-old gentleman who had a previous lumbar spine fusion years ago by Dr. Luis Daniel Hi. He did well for quite a while and started developing worsening leg pain. He had significant stenosis above his previous fusion from L4 to thesacrum and I performed a laminectomy at L3-4. He was doing fine until he had a bending incident where he fractured the left sided facet and compressed the L3 nerve root on the left. He also had some left-sided stenosis at L2-3. An L3 nerve root block gave him very good over transient relief. With multiple long discussions with the patient about the situation. Certainly, this is a salvage type surgery and we're trying to do to relieve his leg pain. He would do absolutely nothing to relieve any back pain. He understands this perfectly well. We spent a great deal of time with both patient and his family discussing this situation We discussed the risks of surgery including but not limited to bleeding,infection, nerve damage, failure the procedure to relieve symptoms-particularly her foot drop which had been like that for a number of months, iatrogenic instability, dural laceration requiring repair and flat bed rest, DVT, PE, blindness and even . We discussed all of these risks were higher given the revision nature of the surgery Therefore, the patient was seen in the preop area of [facility] today. Low back was marked and the consent was again reverified. The patient was brought to the operating room, intubated via general endotracheal anesthetic and placed on a Quique table with a Varun frame with care taken to pad all bony prominences. Pause for the Cause performed correctly identifying the patient, procedure, proposed plan and radiographs and all were in agreement. Patient was prepped and draped in the standard fashion for a lumbar spine procedure. We then localized our incision and dissected down over the L2, L3 and L4 hemilamina bilaterally. There was abundant scar tissue. We took great care not to get into the dura. We first began by removing the old screws. They came out nicely. There was quite a bit of scar around them. On the left we performed a transforaminal/trans-facet decompression of the exiting L3 and traversing L4 nerve root. We believed that that L3 nerve root was his most significant pain generator. He was abundant scar tissue in this area and there is also significant bleeding around the facet joint but we were able to decompress it fully. The nerve was directly over the disc space and there was no way to reasonably perform a TLIF. We performed the same maneuver on the leftat L2-3. When we were finished there was no compression of either of those nerve roots whatsoever. The L2 and the L3 nerve roots were fully decompressed. We then turned our attention to placing our pedicle screws. We first used a Midas Naun bur then a pedicle probe to cannulate the pedicle. We then placed a Rdz probe and made certain that there were no breaches. We then placed our screws. The screws in L2 and L3 were 5.5 x45. Screws into L4 were 7.5??45 We placed two 60 mm rods. The system was [employer] TSRH 3DX. We decorticated the facet joints on the left and the transverse processes on the right hand side for our spinal fusion at L3-4 and L2-3. When we were finished there was no continued compression of those nerves. Instrumentation was in good position. We did place our remaining autograft bone in the posterolateral gutter at L3-4 and L2-3. We also placed Master graft in the right posterior lateral gutter We then irrigated the wound, placed vancomycin due to the instrumentation. All instrumentation was tightened to photographer scientific's specifications. We then closed the deep fascia with #1 Vicryl, intermediate tissue with a #1 Vicryl, subcutaneous tissue with 2-0 Vicryl and skin with 3-0 nylon given the revision nature of the surgery. We also placed a deep drain due to the revision nature of the surgery.. Steri-Strips and sterile dressing were applied. Patient tolerated procedure well. There were no apparent complications. He will be weightbearing as tolerated bilateral lower extremities. Strict instructions to avoid bending, lifting and twisting over the next 6 weeks. Eearly mobilization and KENAN stockings for his DVT prophylaxis and have 2 grams of Ancef IV q.8 hours x2 doses for antibiotics. Return to see me in 2 weeks, sooner if there are any problems, questions or concerns. Instrumentation used during this case [employer] TSRH 3DX WRAPPER documented in this encounter Plan of Treatment Not on filedocumented as of this encounter Procedures Procedure Name Priority Date/Time Associated Diagnosis Comme nts CROSSMATCH RED CELLS Routine 12/02/2014 10:40 Res ults for this AM BEAD WRAPPER procedure are i n the results section. CROSSMATCH RED CELLS Routine 12/02/2014 10:40 Res ults for this AM BEAD WRAPPER procedure are i n the results section. XR LUMBAR SPINE PORT Routine 11/29/2014 1:38 Spinal stenosis, Results for this 2/3 VIEWS PM BEAD WRAPPER lumbar region, procedure are in without neurogenic the resul ts claudication section. XR SURGERY CHRIS FLUORO Routine 11/29/2014 1:37 Spinal stenosis , Results for this GREATER THAN 5 MIN PM BEAD WRAPPER lumbar region, procedu re are in without neurogenic the resul ts claudication section. RED CELL ANTIGEN Routine 11/29/2014 10:17 Results for this TYPING NON ABO AM BEAD WRAPPER procedure are in the results section. ANTIBODY Routine 11/29/2014 10:17 Results for this IDENTIFICATION AM BEAD WRAPPER procedure are in the results section. EKG CARDIAC - HIM SCAN 11/29/2014 documented in this encounter Results Crossmatch red cells (12/02/2014 10:40 AM BEAD WRAPPER) [facility] Method Time Signature Crossmatch COMPATIBLE 12/02/2014 BLOOD BANK 10:40 AM BEAD WRAPPER Unit ABO/RH O Pos 12/02/2014 BLOOD BANK 10:40 AM BEAD WRAPPER Unit Number [id number] 12/02/2014 BLOOD BANK 10:40 AM BEAD WRAPPER Status Released 12/02/2014 BLOOD BANK 10:40 AM BEAD WRAPPER Component Red Blood 12/02/2014 BLOOD BANK Cells 10:40 AM BEAD WRAPPER Product Code [id number] 12/02/2014 BLOOD BANK 10:40 AM BEAD WRAPPER Specimen (Source) Anatomical Location Collection Method / Collectio n Time Received Time / Laterality Volume Hang Mcclure MD LAB - BLOOD BANK PRODUCT ORD ER Performing Organization Address [facility] Phon e Number [facility] BLOOD BANK [address] [place] [address] BLOOD BANK [address] [place] [address] [place] [address] Crossmatch red cells (12/02/2014 10:40 AM BEAD WRAPPER) [facility] gist Method Time Signature Crossmatch COMPATIBLE 12/02/2014 BLOOD BANK 10:40 AM BEAD WRAPPER Unit ABO/RH O Pos 12/02/2014 BLOOD BANK 10:40 AM BEAD WRAPPER Unit Number [id number] 12/02/2014 BLOOD BANK 10:40 AM BEAD WRAPPER Status Released 12/02/2014 BLOOD BANK 10:40 AM BEAD WRAPPER Component Red Blood 12/02/2014 BLOOD BANK Cells 10:40 AM BEAD WRAPPER Product Code [id number] 12/02/2014 BLOOD BANK 10:40 AM BEAD WRAPPER Specimen (Source) Anatomical Location Collection Method / Collectio n Time Received Time / Laterality Volume Hang Mcclure MD LAB - BLOOD BANK PRODUCT ORD ER Performing Organization Address [facility] Phon e Number [facility] BLOOD BANK [address] [place] [address] BLOOD [address] [place] [address] [place] [address] XR Lumbar Spine Port 2/3 Views (11/29/2014 1:38 PM BEAD WRAPPER) Anatomical Region Laterality Modality Spine Other Specimen (Source) Anatomical Location Collection Method / Collectio n Time Received Time / Laterality Volume Narrative 11/29/2014 1:51 PM BEAD WRAPPER XR LUMBAR SPINE 2 OR 3 VWS PORTABLE 11/29/2014 1:38 PM INDICATION: Lumbar fusion COMPARISON: 05/03/2014 FINDINGS: Films obtained intraoperativel y utilizing 0.65 minutes of fluoroscopy time. Spot views demonstrate sequential placement of pedicle screws and fixation rods bilaterally at L2-L3 and L4. Interbody bone plug at L4-5 with apparent removal of previous pedicle screws at L5. Disc space narrowing at L1-2, L2-3 and L 3-4. Procedure Note Ibrahima Carcamo - 03/23/2021Formatting o f this note might be different from the original. XR LUMBAR SPINE 2 OR 3 VWS PORTABLE 11/29/2014 1:38 PM INDICATION: Lumbar fusion COMPARISON: 05/03/2014 FINDINGS: Films obtained intraoperativel y utilizing 0.65 minutes of fluoroscopy time. Spot views demonstrate sequential placement of pedicle screws and fixation rods bilaterally at L2-L3 and L4. Interbody bone plug at L4-5 with apparent removal of previous pedicle screws at L5. Disc space narrowing at L1-2, L2-3 and L 3-4. Hang Mcclure MD IMG DIAGNOSTIC IMAGING ORDER [place] XR Surgery CHRIS Fluoro G/T 5 Min (11/29/2014 1:37 PM BEAD WRAPPER) Anatomical Region Laterality Modality Abdomen/Pelvis Other Specimen (Source) Anatomical Location Collection Method / Collectio n Time Received Time / Laterality Volume Narrative 11/29/2014 1:37 PM BEAD WRAPPER Please see the Radiology Report for result for body part of interest. Procedure Note David Girard - 03/23/2021Formatt ing of this note might be different from the original. Please see the Radiology Report for resu lt for body part of interest. Hang Mcclure MD IMG DIAGNOSTIC IMAGING ORDER [place] Antibody identification (11/29/2014 10:17 AM BEAD WRAPPER) Patholo gist Method Time Signature Antibody > 3hr for 11/29/2014 BLOOD BANK Identification more 1:34 PM BEAD WRAPPER blood;Ant i[place] Specimen Anatomical Collection Method / Collection Time Recei fany Time (Source) Location / Volume Laterality Blood specimen Venipuncture / 11/29/2014 10:17 015 1:34 (specimen) Unknown AM BEAD WRAPPER PM BEAD WRAPPER Hang Mcclure MD LAB - BLOOD BANK TEST ORDER Performing Organization Address City/State/ZIP Code Phon e Number [facility] BLOOD BANK [address] [place] [address] BLOOD BANK [address] [place] [address] Red Cell Antigen Typing Non ABO: (11/29/2014 10:17 AM BEAD WRAPPER) P athologist Signature K Antigen Type Negative 11/29/2014 BLOOD BANK 1:16 PM BEAD WRAPPER Specimen Anatomical Collection Method / Collection Time Recei fany Time (Source) Location / Volume Laterality Blood specimen Venipuncture / 11/29/2014 10:17 015 1:16 (specimen) Unknown AM BEAD WRAPPER PM BEAD WRAPPER Narrative [facility] BLOOD BANK - 11/29/2014 1:16 PM BEAD WRAPPER K Antigen Hang Mcclure MD LAB - BLOOD BANK TEST ORDER Performing Organization Address City/State/ZIP Code Phon e Number [facility] BLOOD BANK [address] [place] [address] BLOOD BANK [address] [place] [address] EKG CARDIAC - HIM SCAN (11/29/2014) Specimen (Source) Anatomical Location Collection Method / Collectio n Time Received Time / Laterality Volume Narrative This result has an attachment that is no t available. Historical Provider ECG ORDERABLES documented in this encounter Visit Diagnoses Diagnosis Spinal stenosis, lumbar region, without neurogenic claudication AAA (abdominal aortic aneurysm) (H) Abdominal aneurysm without mention of ru pture Diabetes mellitus (H) Type II or unspecified type diabetes dennis litus without mention of complication, not stated as uncontrolled Hypertension Unspecified essential hypertension BPH (benign prostatic hyperplasia) Unspecified hyperplasia of prostate with out urinary obstruction and other lower urinary tract symptoms (LUTS) HLD (hyperlipidemia) Other and unspecified hyperlipidemia Hyperglycemia, drug-induced Other abnormal glucose 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
--- OUTSIDE RECORDS SUMMARY | 2022-05-28 05:06 | XMS_ITS | Encounter Summary ---
:1940 Author Organization [facility] Address [address] [place] [id number] Care Team Providers Name Role Phone Unavailable Primary Care Provider Unavailable Reason for Visit Reason Comments Surgical Followup left foot post op. Encounter Details Date Type Department Care Team Description 09/17/2011 Office Visit [facility] Sal [facility]arro [facility] aftercare Clinic Yumiko Castellanos DPM (Primary Dx) [address] [facility] [address] [phone] [place] [address] Social History Tobacco Use Types Packs/Day Years Used Date Unknown If Ever Smoked Alcohol Use Standard Drinks/Week Comments Not Asked 0 (1 standard drink = 0.6 oz pure alcoho l) Sex Assigned at Date Recorded Not on file documented as of this encounter Progress Notes Sal Chaparro DPM - 09/17/2011 9:18 AM CST Subjective: Patient is seen today 6 months post op from a 1. Hammertoe correction, second toe, left foot. 2. Nonunion takedown, debridement and bone grafting second metatarsal, left foot. 3. Surgical matrixectomy, right great toenail. . Patient is doing well, admits compliance, denies fevers, chills, nausea or vomiting. Continues to use regular shoe on lt. Pt is currently asymptomatic on his lt foot and states that his foot feels better than it did pre-op. PMH, meds, all, PSH, PFH, and soc hx were reviewed REVIEW OF SYSTEMS: CONSTITUTIONAL:NEGATIVE for fever, chills, [...] 3 views lt foot weightbearing which shows complete bridging bone callous across non-union take-down from lateral to medial. Stable internal fixation and no other sign of osseous pathology. Assessment: 6 months post op Completely healed Plan: Pt may shower and no foot soaks. Continue with ice and compression. Limit activities with weight bearing in a regular shoe on lt. F/U prn. RING MACHINE TENDER documented in this encounter Nursing Notes 09/17/2011 9:00 AM CST >> MELL MAGANA Wed Sep 17, 2011 8:54 AM Patient presents with: Surgical Followup - left foot post op. Initial There were no vitals taken for this visit. Mell Magana CMA documented in this encounter Plan of Treatment Not on filedocumented as of this encounter Procedures Procedure Name Priority Date/Time Associated Diagnosis Comme nts XR FOOT LEFT G/E 3 Routine 09/17/2011 9:01 AM Surgery aftercar e Results for this VIEWS COVERING MACHINE TENDER procedure are i n the results section. documented in this encounter Results X-ray lt Foot G/E 3 vws* (09/17/2011 9:01 AM COVERING MACHINE TENDER) Anatomical Region Laterality Modality Foot, Ankle Left Other Specimen (Source) Anatomical Collection Method Collection Time Re ceived Time Location / / Volume Laterality 09/17/2011 9:01 AM COVERING MACHINE TENDER Impressions 09/17/2011 11:23 AM COVERING MACHINE TENDER FOOT THREE OR MORE VIEWS LEFT Sep 17 9:01 AM HISTORY: Surgery aftercare. COMPARISON: 07/16/2011. FINDINGS: Status post fixation of a seco nd metatarsal fracture with a bridging cortical plate and screws, as b efore. Alignment remains near anatomic and hardware is intact. No sign ificant change from prior examination. No new acute bony abnormali ties. Sal Chaparro DPM [facility] DIAGNOSTIC IMAGING ORDER [place] documented in this encounter Visit Diagnoses Diagnosis Surgery aftercare - Primary Other specified aftercare following surg anai documented in this encounter
--- OUTSIDE RECORDS SUMMARY | 2022-05-28 05:06 | XMS_ITS | Encounter Summary ---
:1940 Author Organization [facility] Address [address] [place] [address] Care Team Providers Name Role Phone Primary Dr, Unknown Primary Care Provider Unavailable Reason for Visit Reason Onset Date Comments Referral 10/16/2016 [facility] Encounter Details Date Type Department Care Team Description 10/16/2016 Telephone [facility] Jon White Referral ([facility]) [facility] [address] [place] [address] [phone] [place], [place] [phone] (Wo rk) Social History Tobacco Use Types [...] Telephone Encounter - Lisa Diaz RN - 10/17/2016 9:41 AM CST Call to pt. Pt stated dermatology office that he had biopsy at does not do MOHS procedure. Pt educated on procedure. Letter and info mailed to pt. Pt states he was anxiety pill for this procedure. Pt will come in at 10 am to get Valium before procedure and will have driver utility worker with him. MOHS at 10 45 am. PASTEURIZER Telephone Encounter - Aruna Rodriguez - 10/16/2016 3:11 PM CST Pt returned RN (Lisa) phone call. Please call again Thursday10/17/16. 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 Pt has appt at 10 45 pm on for second opinion on skin cancer and questions. Left message for pt to clarify whether heis planning to come in for MOHS appt or just regular appt. PASTEURIZER documented in this encounter Plan of Treatment Not on filedocumented as of this encounter Visit Diagnoses Not on filedocumented in this encounter Care Teams Trainer Relationship Specialty Start Date End Date Primary Dipak Kasper MD PCP - General 09/21/1204/18 documented as of this encounter
--- OUTSIDE RECORDS SUMMARY | 2022-05-28 05:06 | XMS_ITS | Encounter Summary ---
:1940 Author Organization [facility] Address [address] [place] [id number] Care Team Providers Name Role Phone Primary DrDipak MD Primary Care Provider Unavailable Celina Coley Primary Care Provider [facility] [place] Primary Care Provider [phone] Jon White MD Unavailable [phone] Ramiro Loco MD Unavailable Gallito Gonzalez MD Unavailable Encounter Details Date Type Department Care Team Description 05/02/2014 Records - [facility] Cheryl Enriquez RN [address] [id number] Social History Tobacco Use Types Packs/Day [...] - Inhaled Oxygen Concentration - - Weight 95.3 kg (210 lb) 05/01/2014 5:00 PM CDT Height 180.3 cm (5' 11) 05/01/2014 5:00 PM CDT Body Mass Index 29.29 05/01/2014 5:00 PM CDT documented in this encounter Discharge Summaries Isra Fregoso MD - 05/08/2014 9:10 AM CDT ORTHOPEDIC HOSPITAL DISCHARGE SUMMARY Patient Name: Speedy Hendricks Date of :1940 Age: 73 y.o. Primary Physician: Kannan Guerra MD Admission Date: 05/03/2014 Discharge Date: 05/07/2014 1:27 PM PRINCIPAL DIAGNOSIS CAUSING ADMISSION: Spinal stenosis, lumbar region, without neurogenic claudication [724.02] BRIEF HOSPITAL COURSE: This 73 y.o. male underwent BILATERAL L2-3 AND L3-4 LAMINECTOMY REVISION L4 LAMINOTOMY NON-INSTRUMENTED FUSION L3-4 PROCEDURES PERFORMED: BILATERAL L2-3 AND L3-4 LAMINECTOMY REVISION L4 LAMINOTOMY NON-INSTRUMENTED FUSION L3-4 on 05/03/2014 Brief Summary: Speedy Hendricks was admitted on 05/03/2014 for Procedure(s): BILATERAL L2-3 AND L3-4 LAMINECTOMY REVISION L4 LAMINOTOMY NON-INSTRUMENTED FUSION L3-4 There were no intraoperative or perioperative complications. Post operatively Speedy Hendricks was progressed to general diet, physical therapy and pain protocols and was subsequently discharged on 05/07/2014 1:27 PM. Further details as per the medical record. Discharge instruction and meds were given per the after discharge order set and the patient was to return to clinic in 1-2 weeks for routine followup. Isra Fregoso M.D. [facility] Mattie Urrutia - 05/04/2014 3:42 PM CDT Orthopedics Discharge Summary Admission Date: 05/03/2014 Admission Diagnoses: Spinal stenosis, lumbar region, without neurogenic claudication [724.02] Discharge Date: 05/07/2014 Post-operative Day: 4 days post-op Reason for Admission: The patient was admitted for the following: Procedure(s) (LRB): BILATERAL L2-3 AND L3-4 LAMINECTOMY REVISION L4 LAMINOTOMY NON-INSTRUMENTED FUSION L3-4 (Bilateral) Following the procedure noted above the patient was transferred to the post-op floor and started on: Therapy: Physical Therapy and Occupational Therapy Anticoagulation Medications: none Complications: None Consultations: hospitalist for medication management Lab Results: Results from last 7 days Lab Units 05/07/14 0616 05/06/14 0538 05/05/[address]-CREATININE mg/dL 1.16 1.16 1.18 Active Problems: Spinal stenosis, lumbar region, with neurogenic claudication Hypertension MRSA (methicillin resistant staph aureus) culture positive Diabetes mellitus Lumbar stenosis AAA (abdominal aortic aneurysm) Discharge Information: Condition at discharge: good Discharge destination: Home Care - Other Follow-up Care: The patient will be followed in the office in 2 weeks. Mattie Urrutia Date: 05/09/2014 Time: 3:42 PM documented in this encounter Progress Notes Historical Provider - 05/07/2014 12:18 PM CDT Confirmed with [facility] acceptance of pt for PT and OT. Notified pt of [facility] PT and OT acceptance and informed pt and daughter agency will be contacting pt on Thursday, 05/08, to schedule appointment. MARIELA Dillon, [facility] Clinical Social Work Prosthetic Makeup Designer Luciano León - 05/07/2014 11:25 AM CDT [facility] Daily Progress Note Assessment/Plan: 1. Hypertension. Continue home medications with hold parameters. Will have when necessary clonidine available. BP is okay now. 2. History of MRSA. Repeat swab has been performed. Contact precautions are in place. 3. Type 2 diabetes. Patient is not on medication at home. Blood sugars have been elevated due to steroids. He will be on a rapidly tapering oral dose and thus we have elected not to send him home on insulin. We'll provide him a glucometer prior to discharge. 4. Abdominal aortic aneurysm. Not an active issue. Outpatient monitoring. 5. DVT prophylaxis. Per spine. Aspirin and NSAIDs have been held. 6. Chronic pain syndrome. Consider pharmacy pain team consult if needed. 7. Urinary retention. Catheter has been removed. Patient is urinating without problems. We will continue to monitor. 8. UTI. Patient had pyuria but urine culture grew nothing. Will discontinue antibiotics. Suspect pyuria was traumatic. 9. Right foot pain of unclear etiology. Initially there was concern about possible cellulitis versusshingles eruption. Ortho is going to start patient on some steroids to see if that'll benefit. I'm going to discontinue vancomycin. 10. Abnormal chest x-ray. Recommend repeat chest x-ray in approximately 4 weeks to assure resolution/no abnormality. Again I suspect this is atelectasis. Patient is cleared for discharge from a medical standpoint. Active Problems: Spinal stenosis, lumbar region, with neurogenic claudication Hypertension MRSA (methicillin resistant staph aureus) culture positive Diabetes mellitus Lumbar stenosis AAA (abdominal aortic aneurysm) LOS: 4 days Subjective: Feeling better today. Foot is a little less painful. He feels tired. No nausea or vomiting. No chestpain. Shortness of breath. Aware of plan for steroids at discharge. He is excited to leave. ??? atorvastatin 40 mg Oral QHS ??? bacitracin Topical BID ??? dexamethasone 4 mg Intravenous Q6H ??? diclofenac sodium Topical QID ??? gabapentin 200 mg Oral TID ??? insulin aspart (NovoLOG) injection Subcutaneous TID with meals ??? insulin aspart (NovoLOG) injection Subcutaneous QHS ??? levofloxacin 500 mg Intravenous Q24H ??? lidocaine HCl 5 mL Urethral Once ??? metoprolol 50 mg Oral BID ??? senna-docusate 1 tablet Oral BID ??? tamsulosin 0.4 mg Oral QHS ??? terazosin 5 mg Oral QHS ??? therapeutic multivitamin 1 tablet Oral Daily Objective: Vital signs in last 24 hours: Temp: [97.5 ??F (36.4 ??C)-98.8 ??F (37.1 ??C)] 97.5 ??F (36.4 ??C) Heart Rate: [75-106] 106 Resp: [16-18] 16 BP: (135-155)/(79-86) 155/86 mmHg SpO2: [96 %-98 %] 98 % Weight: 210 lb (95.255 kg) Intake/Output last 3 shifts: I/O last 3 completed shifts: In: 2860 [P.O.:2160; IV Piggyback:700] Out: 1240 [Urine:1240] Intake/Output this shift: I/O this shift: In: 480 [P.O.:480] Out: - Review of Systems: As per subjective, all others negative. Physical Exam: General Appearance: Alert, cooperative, no distress, appears stated age Head: Normocephalic, without obvious abnormality, atraumatic Eyes: PERRL, conjunctiva/corneas clear, EOM's intact Throat: Lips, mucosa, and tongue normal; teeth and gums normal Neck: Supple, symmetrical, trachea midline, no adenopathy, thyroid: not enlarged, symmetric, no carotid bruit or JVD Back: Symmetric, no curvature, ROM normal, no CVA tenderness Lungs: Clear to auscultation bilaterally, respirations unlabored Heart: Regular rate and rhythm, S1, S2 normal,no murmur, rub or gallop Abdomen: Soft, non-tender, bowel sounds active all four quadrants, no masses, no organomegaly Extremities: Extremities normal, atraumatic, no cyanosis or edema Neurologic: Alert and oriented X 3, Moves all 4 extremities Imaging: Personally Reviewed. Xr C Arm Greater Than One Hour 05/03/2014 Please see the Surgical Report for results. Lab Results: Personally Reviewed. Results from last 7 days Lab Units 05/06/14 0538 05/04/[address]-WHITE BLOOD CELL COUNT thou/uL 9.6 9.5 LN-HEMOGLOBIN g/dL 11.9* 12.6* LN-HEMATOCRIT % 33.9* 36.7* LN-PLATELET COUNT thou/uL 103* 101* Results from last 7 days Lab Units 05/07/14 0616 05/06/14 0538 05/05/14 0546 [address]-SODIUM mmol/L 141 139 -- LN-POTASSIUM mmol/L 4.2 3.8 -- LN-CHLORIDE mmol/L 107 105 -- LN-CO2 mmol/L 25 26 -- LN-BLOOD UREA NITROGEN mg/dL 22 15 -- LN-CREATININE mg/dL 1.16 1.16 1.18 [address]-CALCIUM mg/dL 9.4 9.2 -- Total time 40 minutes grilling 50% coordination of care. Isra Fregoso MD - 05/07/2014 10:42 AM CDT ORTHOPEDIC L/E PROGRESS NOTE ASSESSMENT POD # 4 s/p Lumbar revision lami /fusion PLAN Continue anticoagulation ,Teds/SCDs Continue with PT, OT. OK to discharge home later today Subjective: Procedure(s): BILATERAL L2-3 AND L3-4 LAMINECTOMY REVISION L4 LAMINOTOMY NON-INSTRUMENTED FUSION L3-4 on 05/03/2014. 4 Days Post-Op Pain: mild Much less pain today. Foot pain resolved, leg pain resolved last night. Ambulating independently. Vital signs in last 24 hours Temp: [97.5 ??F (36.4 ??C)-98.8 ??F (37.1 ??C)] 97.5 ??F (36.4 ??C) Heart Rate: [75-106] 106 Resp: [16-18] 16 BP: (135-155)/(79-86) 155/86 mmHg Lab Results Component Value Date HGB 11.9* 05/06/2014 No results found for this basename: INR, PROTIME EXAM The patient is awake and alert, NAD Calves are soft and non-tender. Sensation is intact bilateral LE Dorsiflexion and plantar flexion is intact. Dorsalis pedis pulses intact. The dressing C/D/I lumbar spine. Right foot redness resolved, no tenderness or swelling. Isra Fregoso [facility] Date: 05/07/2014 Time: 10:42 AM Historical Provider - 05/06/2014 1:16 PM CDT [facility] met with pt re home health care services. Pt requested [facility] for PT and OT. [facility] contacted [facility] at [phone] making referral to this agency. Fax no is [phone]. [facility] will follow pt to discharge. Rita Urbina, VOCATIONAL NURSING INSTRUCTOR, [facility] Clinical Social Work Care Managedr Low Ramirez - 05/06/2014 12:12 PM CDT ASSOCIATE PROFESSOR OF EDUCATION TREATMENT NOTE Name: Speedy Hendricks : 1940 Acupuncture Treatment Patient Type: Orthopedic Intervention Reason: Pain Pre-session Pain ratin Post-session Pain ratin Patient complaint:: (R) foot pain Acupunture (Points):: Du 20, Yin watts, (R) Gb 20, (R) St 34, 36, (R) Sp 8, (R) Si 4 Low Ramirez L.Ac. Date: 05/06/2014 Time: 12:12 PM Luciano León - 05/06/2014 11:44 AM CDT [facility] Daily Progress Note Assessment/Plan: 1. Hypertension. Continue home medications with hold parameters. Will have when necessary clonidine available. BP is okay now. 2. History of MRSA. Repeat swab has been performed. Contact precautions are in place. 3. Type 2 diabetes. Restart sliding scale insulin and fingerstick blood glucoses 2 to initiation of steroids. 4. Abdominal aortic aneurysm. Not an active issue. Outpatient monitoring. 5. DVT prophylaxis. Per spine. Aspirin and NSAIDs have been held. 6. Chronic pain syndrome. Consider pharmacy pain team consult if needed. 7. Urinary retention. Catheter has been removed. Patient is urinating without problems. We will continue to monitor. 8. UTI. Patient is on Levaquin at this point in time. Is also on Vanco for concern about possible cellulitis. We'll discontinue Vanco 9. Right foot pain of unclear etiology. Initially there was concern about possible cellulitis versusshingles eruption. Ortho is going to start patient on some steroids to see if that'll benefit. I'm going to discontinue vancomycin. Active Problems: Spinal stenosis, lumbar region, with neurogenic claudication Hypertension MRSA (methicillin resistant staph aureus) culture positive Diabetes mellitus Lumbar stenosis AAA (abdominal aortic aneurysm) LOS: 3 days Subjective: Feeling better today. Foot is a little less painful. He feels tired. No nausea or vomiting. No chestpain. Shortness of breath. Aware of plan for steroids. Patient states urine output is good. No BM since admission. ??? atorvastatin 40 mg Oral QHS ??? bacitracin Topical BID ??? dexamethasone 4 mg Intravenous Q6H ??? diclofenac sodium Topical QID ??? gabapentin 200 mg Oral TID ??? levofloxacin 500 mg Intravenous Q24H ??? lidocaine HCl 5 mL Urethral Once ??? metoprolol 50 mg Oral BID ??? senna-docusate 1 tablet Oral BID ??? tamsulosin 0.4 mg Oral QHS ??? terazosin 5 mg Oral QHS ??? therapeutic multivitamin 1 tablet Oral Daily ??? vancomycin 1.5 g Intravenous Q12H Objective: Vital signs in last 24 hours: Temp: [98.4 ??F (36.9 ??C)-99.8 ??F (37.7 ??C)] 98.5 ??F (36.9 ??C) Heart Rate: [71-84] 84 Resp: [14-18] 16 BP: (127-148)/(68-82) 148/68 mmHg SpO2: [95 %-97 %] 95 % Weight: 210 lb (95.255 kg) Intake/Output last 3 shifts: I/O last 3 completed shifts: In: 1900 [P.O.:1200; IV Piggyback:700] Out: 1308 [Urine:1308] Intake/Output this shift: I/O this shift: In: 480 [P.O.:480] Out: 400 [Urine:400] Review of Systems: As per subjective, all others negative. Physical Exam: General Appearance: Alert, cooperative, no distress, appears stated age Head: Normocephalic, without obvious abnormality, atraumatic Eyes: PERRL, conjunctiva/corneas clear, EOM's intact Throat: Lips, mucosa, and tongue normal; teeth and gums normal Neck: Supple, symmetrical, trachea midline, no adenopathy, thyroid: not enlarged, symmetric, no carotid bruit or JVD Back: Symmetric, no curvature, ROM normal, no CVA tenderness Lungs: Clear to auscultation bilaterally, respirations unlabored Heart: Regular rate and rhythm, S1, S2 normal,no murmur, rub or gallop Abdomen: Soft, non-tender, bowel sounds active all four quadrants, no masses, no organomegaly Extremities: Extremities normal, atraumatic, no cyanosis or edema Neurologic: Alert and oriented X 3, Moves all 4 extremities Imaging: Personally Reviewed. Xr C Arm Greater Than One Hour 05/03/2014 Please see the Surgical Report for results. Lab Results: Personally Reviewed. Results from last 7 days Lab Units 05/06/14 0538 05/04/[address]50 [address]-WHITE BLOOD CELL COUNT thou/uL 9.6 9.5 LN-HEMOGLOBIN g/dL 11.9* 12.6* LN-HEMATOCRIT % 33.9* 36.7* LN-PLATELET COUNT thou/uL 103* 101* Results from last 7 days Lab Units 05/06/14 0538 05/05/14 0546 05/03/14 1450 LN-SODIUM mmol/L 139 -- -- LN-POTASSIUM mmol/L 3.8 -- -- LN-CHLORIDE mmol/L 105 -- -- LN-CO2 mmol/L 26 -- -- LN-BLOOD UREA NITROGEN mg/dL 15 -- -- LN-CREATININE mg/dL 1.16 1.18 1.12 LN-CALCIUM mg/dL 9.2 -- -- Isra Fregoso MD - 05/06/2014 11:10 AM CDT ORTHOPEDIC L/E PROGRESS NOTE ASSESSMENT POD # 3 s/p Lumbar revision laminectomy and fusion PLAN Continue with PT, OT.trial of knee walker today Plan for Discharge tomorrow if foot and leg pain better Will start IV Decadron today 4 mg q6 hrs for leg and foot pain Subjective: Procedure(s): BILATERAL L2-3 AND L3-4 LAMINECTOMY REVISION L4 LAMINOTOMY NON-INSTRUMENTED FUSION L3-4 on 05/03/2014. 3 Days Post-Op Pain: severe right foot and right thigh/leg Vital signs in last 24 hours Temp: [98.4 ??F (36.9 ??C)-99.8 ??F (37.7 ??C)] 98.5 ??F (36.9 ??C) Heart Rate: [71-84] 84 Resp: [14-18] 16 BP: (127-148)/(68-82) 148/68 mmHg Lab Results Component Value Date HGB 11.9* 05/06/2014 No results found for this basename: INR, PROTIME EXAM The patient is awake and alert Calves are soft and non-tender. Sensation is intact distally, Dorsiflexion and plantar flexion is intact right foot Dorsalis pedis pulses intact. The incision lumbar region clean, mild serosang. Drainage noted, mild swelling. Right foot nonspecific swelling dorsal and medial foot, no avelina cellulitis, minimal erythema + right leg pain when attempt to weight bear, equivocal SLR. Isra Fregoso [facility] Date: 05/06/2014 Time: 11:15 AM Lexie Alfred - 05/06/2014 11:08 AM CDT 05/06/14 1100 Ambulation Location In room (only a few steps due to too much weight through arms) Assistance Contact guard Device Rolling walker Functional Transfers Chair Transfers (CGA/Min A) Occupational Therapy Met with pt. And family for extended period of time. Pt's dtr's are both nurses and plan to stay with pt upon D/C. They are very concerned due to right leg/foot weakness, numbness and burning he is very limited with the amount of weight he is able to tolerate. Spent 15-20 min. Problem solving safe ways to do things at home with limited mobility and unable to put a lot of weight through his arms for using mobility devices such as the walker due to new back surgery and lifting/push/pulling restrictions. This time was not billed for Lexie Alfred OTR/L Historical Provider - 05/05/2014 4:56 PM CDT .VANCOMYCIN PHARMACY DOSING NOTE: Pharmacy consulted to dose Vancomycin for Speedy Hendricks, 73 y.o. male Indication for Vancomycin therapy: per Dr León Progress note: Foot pain. Unclear what the etiology of this is. Patient does now have some redness on the on the lateral aspect of the foot. He does have a history of MRSA infection in this foot in the past. We're going to x-ray the foot and ankle. Lower extremities venous Doppler. Initiate vancomycin. This could possibly be early shingles outbreak as well. Other current antibiotics: Levaquin 500 mg iv q24h Goal Trough Range:10-15 mcg/ml Drug allergies: Norvasc; Penicillins; and Procaine Height: 5' 11 (1.803 m) Weight: 95.255 kg (210 lb) Temperature: Temp Readings from Last 3 Encounters: 05/05/14 99.8 ??F (37.7 ??C) Oral 05/05/14 99.8 ??F (37.7 ??C) Oral Labs: Recent Labs 05/04/14 2350 WBC 9.5 Estimated CrCl: Estimated Creatinine Clearance: 67.7 ml/min (based on Cr of 1.18). Assessment/Plan: 1. Based on the patient's age, CrCl and indication for therapy, initiate Vancomycin 1500 mg q12h (~15mg/kg) 2. Pharmacy will continue to follow. Plan to check trough level before 4th dose Sat night if plan isto continue Vancomycin. Creatinine is ordered for Sat as well. Cultures from blood and urine pending; HX MRSA as noted. Thank you for the consult. Eri Bah [facility] 05/05/2014 4:46 PM Ca Plunkett - 05/05/2014 3:50 PM CDT ASSOCIATE PROFESSOR OF EDUCATION TREATMENT NOTE Name: Speedy Hendricks : 1940 Acupuncture Treatment Patient Type: Orthopedic Intervention Reason: Urinary Retention Patient complaint:: urinary retention Acupunture (Points):: [place]den (3,4,6) St 28, St 29 Risks and benefits of acupuncture discussed and patient gave consent to acupuncture treatment. Thank you for the referral and the opportunity to serve this patient. Ca Plunkett Date: 05/05/2014 Time: 3:50 PM Mattie Urrutia - 05/05/2014 2:39 PM CDT Ortho Progress Note 2 Days Post-Op Procedure(s): BILATERAL L2-3 AND L3-4 LAMINECTOMY REVISION L4 LAMINOTOMY NON-INSTRUMENTED FUSION L3-4 Subjective: Pain: mild-moderate. Pain in back mild and improving. Having pain in right foot. Same intensity as yesterday Chest pain, SOB: No Nausea, vomiting: No Lightheadedness, dizziness: No Neuro: Pt reports mild numbness and tingling bilaterally in legs; unchanged from before surgery Objective: Vital signs in last 24 hours Temp: [98.1 ??F (36.7 ??C)-99.8 ??F (37.7 ??C)] 98.5 ??F (36.9 ??C) Heart Rate: [76-100] 76 Resp: [14-18] 14 BP: (127-178)/(75-86) 146/79 mmHg Wound status: clean, dry and minimal, serosanguinous drainage Circulation, motion and sensation: Intact and good dorsiflexion/plantarflexion Swelling: mild at back. Moderate swelling of right foot. Calf tenderness: no tenderness Right foot: Pain with palpation over plantar aspect of midfoot and diffusely across dorsal aspect. Mild erythema. No area of fluctuance. Pain with weightbearing. Tender to touch skin along left foot aswell Pertinent Labs Lab Results: personally reviewed. Results from last 7 days Lab Units 05/04/14 2350 [address]-HEMOGLOBIN g/dL 12.6* Results from last 7 days Lab Units 05/05/14 0546 [address]-CREATININE mg/dL 1.18 Plan: Continue PT/OT Weightbearing status: WBAT . No bending, lifting, or twisting Anticoagulation: none in addition to SCDs, kenan stockings and early ambulation. Discharge planning: home with family once medically cleared Had some confusion last evening. Pain meds changed back to home med norco. Added gabapentin for lower extremity pain. Xray and ultrasound of right foot and lower extremity. No fracture, significant DJD, or dislocation seen on xray. Continue to elevate foot. At this time low suspicion for pain in foot to be related to new neural compression. Continue to ambulate patient. Getting levaquin for suspectedUTI. Report completed by: Mattie Urrutia MS, SH[facility] Date: 05/05/2014 Time: 2:39 PM Luciano León S - 05/05/2014 9:29 AM CDT S Daily Progress Note Assessment/Plan: 1. Hypertension. Continue home medications with hold parameters. Will have when necessary clonidine available. BP is okay now. 2. History of MRSA. Repeat swab has been performed. Contact precautions are in place. 3. Type 2 diabetes. Sliding scale insulin will be ordered. He does not appear to be on any oral antihyperglycemics. 4. Abdominal aortic aneurysm. Not an active issue. Outpatient monitoring. 5. DVT prophylaxis. Per spine. Aspirin and NSAIDs have been held. 6. Chronic pain syndrome. Consider pharmacy pain team consult if needed. 7. Urinary retention/UTI. Patient has been started on Levaquin which we will continue. Await urine culture results. Dial catheter will be reinserted due to continued urinary retention. Will use Urojet. 8. Abnormal CXR. Suspect atelectasis. Patient is on antibiotics. 9. Foot pain. Unclear what the etiology of this is. Patient does now have some redness on the on thelateral aspect of the foot. He does have a history of MRSA infection in this foot in the past. We'regoing to x-ray the foot and ankle. Lower extremities venous Doppler. Initiate vancomycin. This couldpossibly be early shingles outbreak as well. Active Problems: Spinal stenosis, lumbar region, with neurogenic claudication Hypertension MRSA (methicillin resistant staph aureus) culture positive Diabetes mellitus Lumbar stenosis AAA (abdominal aortic aneurysm) LOS: 2 days Subjective: Patient cannot urinate while laying down. He's had increasing foot pain and is unable to stand up due to this. He's noticed redness of the foot. No fevers or chills although he does think he has had some rigors. No dysuria. ??? atorvastatin 40 mg Oral QHS ??? bacitracin Topical BID ??? famotidine 20 mg Intravenous Q12H ??? insulin aspart (NovoLOG) injection Subcutaneous TID with meals ??? insulin aspart (NovoLOG) injection Subcutaneous QHS ??? levofloxacin 500 mg Intravenous Q24H ??? metoprolol 50 mg Oral BID ??? senna-docusate 1 tablet Oral BID ??? tamsulosin 0.4 mg Oral QHS ??? terazosin 5 mg Oral QHS ??? therapeutic multivitamin 1 tablet Oral Daily Objective: Vital signs in last 24 hours: Temp: [98.1 ??F (36.7 ??C)-99.8 ??F (37.7 ??C)] 98.1 ??F (36.7 ??C) Heart Rate: [71-100] 82 Resp: [16-18] 16 BP: (127-178)/(75-86) 127/75 mmHg SpO2: [91 %-98 %] 98 % Weight: 210 lb (95.255 kg) Intake/Output last 3 shifts: I/O last 3 completed shifts: In: 3975.8 [P.O.:1680; I.V.:2195.8; IV Piggyback:100] Out: 3950 [Urine:3950] Intake/Output this shift: Review of Systems: As per subjective, all others negative. Physical Exam: General Appearance: Alert, cooperative, no distress, appears stated age Head: Normocephalic, without obvious abnormality, atraumatic Eyes: PERRL, conjunctiva/corneas clear, EOM's intact Throat: Lips, mucosa, and tongue normal; teeth and gums normal Neck: Supple, symmetrical, trachea midline, no adenopathy, thyroid: not enlarged, symmetric, no carotid bruit or JVD Back: Symmetric, no curvature, ROM normal, no CVA tenderness Lungs: Clear to auscultation bilaterally, respirations unlabored Heart: Regular rate and rhythm, S1, S2 normal,no murmur, rub or gallop Abdomen: Soft, non-tender, bowel sounds active all four quadrants, no masses, no organomegaly Extremities: Extremities normal, atraumatic, no cyanosis or edema Neurologic: Alert and oriented X 3, Moves all 4 extremities Lab Results: Personally Reviewed. Results from last 7 days Lab Units 05/04/14 [address]50 [address]-WHITE BLOOD CELL COUNT thou/uL 9.5 LN-HEMOGLOBIN g/dL 12.6* LN-HEMATOCRIT % 36.7* LN-PLATELET COUNT thou/uL 101* Results from last 7 days Lab Units 05/03/14 1450 LN-CREATININE mg/dL 1.12 Total time 45 minutes greater than 50% coordination of care. Mattie Urrutia - 05/04/2014 3:35 PM CDT Ortho Progress Note 1 Day Post-Op Procedure(s): BILATERAL L2-3 AND L3-4 LAMINECTOMY REVISION L4 LAMINOTOMY NON-INSTRUMENTED FUSION L3-4 Subjective: Pain: mild, significantly improved in back but moderate in plantar aspect of his midfoot. Chest pain, SOB: No Nausea, vomiting: No Lightheadedness, dizziness: No Neuro: Patient denies numbness or paresthesias Objective: Vital signs in last 24 hours Temp: [97.5 ??F (36.4 ??C)-98.2 ??F (36.8 ??C)] 98.2 ??F (36.8 ??C) Heart Rate: [68-75] 71 Resp: [16] 16 BP: (117-166)/(71-92) 148/78 mmHg Wound status: clean, dry and no drainage Circulation, motion and sensation: Intact and good dorsiflexion/plantarflexion 4+/5 LE strength Swelling: mild Calf tenderness: no tenderness Right foot: midfoot plantar aspect painful with palpation, tingling. Worse with DF. Pertinent Labs Lab Results: personally reviewed. Results from last 7 days Lab Units 05/03/[address]-CREATININE mg/dL 1.12 Plan: Continue PT/OT Weightbearing status: WBAT In lumbar corset. Pt to wear at all times except hygiene Anticoagulation: none due to risk of spinal hematoma in addition to SCDs, kenan stockings and early ambulation. Discharge planning: home with spouse POD 2 or 3 Changed pain meds to norco to achieve better overall pain control Continue to monitor foot pain. Low suspicion of radicular pain at this time Report completed by: Mattie Urrutia MS, PA-C Date: 05/04/2014 Time: 3:35 PM Luciano León S - 05/04/2014 2:20 PM CDT [facility] Daily Progress Note Assessment/Plan: 1. Hypertension. Continue home medications with hold parameters. Will have when necessary clonidine available. BP is okay now. 2. History of MRSA. Repeat swab has been performed. Contact precautions are in place. 3. Type 2 diabetes. Sliding scale insulin will be ordered. He does not appear to be on any oral antihyperglycemics. 4. Abdominal aortic aneurysm. Not an active issue. Outpatient monitoring. 5. DVT prophylaxis. Per spine. Aspirin and NSAIDs have been held. 6. Chronic pain syndrome. Consider pharmacy pain team consult if needed. 7. Urinary retention. Patient has Dial catheter in place at this point in time. Active Problems: Spinal stenosis, lumbar region, with neurogenic claudication Hypertension MRSA (methicillin resistant staph aureus) culture positive Diabetes mellitus Lumbar stenosis AAA (abdominal aortic aneurysm) LOS: 1 day Subjective: Patient couldn't urinate last night. Has catheter in place at this point in time. Plan anticipate leaving it in tonight and try to remove it tomorrow morning with an attempted voiding then. Having a lot of leg pain per report. Nursing states that orthopedics is aware. No saddle anesthesia. ??? acetaminophen 500 mg Oral Q4H ??? atorvastatin 40 mg Oral QHS ??? bacitracin Topical BID ??? famotidine 20 mg Intravenous Q12H ??? insulin aspart (NovoLOG) injection Subcutaneous TID with meals ??? insulin aspart (NovoLOG) injection Subcutaneous QHS ??? metoprolol 50 mg Oral BID ??? oxyCODONE 5 mg Oral Q4H ??? senna-docusate 1 tablet Oral BID ??? tamsulosin 0.4 mg Oral QHS ??? terazosin 5 mg Oral QHS ??? therapeutic multivitamin 1 tablet Oral Daily Objective: Vital signs in last 24 hours: Temp: [97.5 ??F (36.4 ??C)-98.2 ??F (36.8 ??C)] 98.2 ??F (36.8 ??C) Heart Rate: [55-75] 71 Resp: [16] 16 BP: (117-177)/(71-97) 148/78 mmHg SpO2: [95 %-99 %] 95 % Weight: 210 lb (95.255 kg) Intake/Output last 3 shifts: I/O last 3 completed shifts: In: 5775.8 [P.O.:1280; I.V.:4495.8] Out: 2700 [Urine:2400; Blood:300] Intake/Output this shift: I/O this shift: In: 480 [P.O.:480] Out: - Review of Systems: As per subjective, all others negative. Physical Exam: General Appearance: Alert, cooperative, no distress, appears stated age Head: Normocephalic, without obvious abnormality, atraumatic Eyes: PERRL, conjunctiva/corneas clear, EOM's intact Throat: Lips, mucosa, and tongue normal; teeth and gums normal Neck: Supple, symmetrical, trachea midline, no adenopathy, thyroid: not enlarged, symmetric, no carotid bruit or JVD Back: Symmetric, no curvature, ROM normal, no CVA tenderness Lungs: Clear to auscultation bilaterally, respirations unlabored Heart: Regular rate and rhythm, S1, S2 normal,no murmur, rub or gallop Abdomen: Soft, non-tender, bowel sounds active all four quadrants, no masses, no organomegaly Extremities: Extremities normal, atraumatic, no cyanosis or edema Neurologic: Alert and oriented X 3, Moves all 4 extremities Imaging: Personally Reviewed. Xr C Arm Greater Than One Hour 05/03/2014 Please see the Surgical Report for results. Lab Results: Personally Reviewed. Results from last 7 days Lab Units 05/03/[address]-CREATININE mg/dL 1.12 Historical Provider - 05/04/2014 2:01 PM CDT Reviewed pt's chart. Noted PT recommended home with assist. Met with pt to assess for discharge needs. Discussed discharge options. Pt stated he's doing well and declined home care. He lives with his and has 2 dtrs, who live nearby and able to assist as needed. will transport pt home. No needs identified at this time. Please notify Care Management should needs arise. Cedric Borrego, VOCATIONAL NURSING INSTRUCTOR, PRODUCT SAFETY TESTER Lety Dickerson RN - 05/04/2014 12:00 PM CDT Patient complaining of severe right foot pain on the bottom of foot and along side of inner aspect. Has sensation, states constant aching pain, new since surgery, greater than pain in lower back. PAC, Mattie Urrutia notified. PAC to assess patient. Dr. León also aware. Pain meds administered for pain, currently sleeping, will monitor. Historical Provider - 05/03/2014 2:00 PM CDT Noted pt having low intermittent low HR 37-51. Lopressor held. Paged Dr. León. Will continue to monitor. Recheck HR 60's. Luciano León - 05/03/2014 12:31 PM CDT [facility] Daily Progress Note Assessment/Plan: 1. Hypertension. Continue home medications with hold parameters. Will have when necessary clonidine available. 2. History of MRSA. Repeat swab has been performed. Contact precautions are in place. 3. Type 2 diabetes. Sliding scale insulin will be ordered. He does not appear to be on any oral antihyperglycemics. 4. Abdominal aortic aneurysm. Not an active issue. Outpatient monitoring. 5. DVT prophylaxis. Per spine. Aspirin and NSAIDs have been held. 6. Chronic pain syndrome. Consider pharmacy pain team consult if needed. Active Problems: Spinal stenosis, lumbar region, with neurogenic claudication Hypertension MRSA (methicillin resistant staph aureus) culture positive Diabetes mellitus Lumbar stenosis AAA (abdominal aortic aneurysm) LOS: 0 days Subjective: Patient feels good. No chest pain. No shortness of breath. No headache. He was straight cathed for 500 mL. He does have problems with urinating while laying in bed per his report. ??? acetaminophen 500 mg Oral Q4H ??? famotidine 20 mg Intravenous Q12H ??? [START ON 05/04/2014] multivitamin with iron 1 tablet Oral Daily ??? oxyCODONE 5 mg Oral Q4H ??? senna-docusate 1 tablet Oral BID Objective: Vital signs in last 24 hours: Temp: [96.7 ??F (35.9 ??C)-98 ??F (36.7 ??C)] 96.7 ??F (35.9 ??C) Heart Rate: [42-60] 60 Resp: [8-16] 14 BP: (142-177)/(63-108) 176/108 mmHg SpO2: [95 %-100 %] 97 % Weight: 210 lb (95.255 kg) Intake/Output last 3 shifts: Intake/Output this shift: I/O this shift: In: 2300 [I.V.:2300] Out: 300 [Blood:300] Review of Systems: As per subjective, all others negative. Physical Exam: General Appearance: Alert, cooperative, no distress, appears stated age Head: Normocephalic, without obvious abnormality, atraumatic Eyes: PERRL, conjunctiva/corneas clear, EOM's intact Throat: Lips, mucosa, and tongue normal; teeth and gums normal Neck: Supple, symmetrical, trachea midline, no adenopathy, thyroid: not enlarged, symmetric, no carotid bruit or JVD Back: Symmetric, no curvature, ROM normal, no CVA tenderness Lungs: Clear to auscultation bilaterally, respirations unlabored Heart: Regular rate and rhythm, S1, S2 normal,no murmur, rub or gallop Abdomen: Soft, non-tender, bowel sounds active all four quadrants, no masses, no organomegaly Extremities: Extremities normal, atraumatic, no cyanosis or edema Neurologic: Alert and oriented X 3, Moves all 4 extremities Imaging: Personally Reviewed. Xr C Arm Greater Than One Hour 05/03/2014 Please see the Surgical Report for results. Lab Results: Personally Reviewed. Cheryl Enriquez - 05/02/2014 11:58 AM CDT Contact precautions ,nare swab prior to antibiotic . Per J. [place]/[facility]Fern RN documented in this encounter H&P Notes Hang Mcclure - 05/03/2014 6:57 AM CDT The patient's history has been reviewed and there are no pertinent changes documented in this encounter Miscellaneous Notes Op Note - Hang Mcclure - 05/03/2014 9:14 AM CDT Brief Operative Note Name: Speedy Hendricks PCP: Kannan Guerra MD Procedure Date: 05/03/2014 Procedure(s) (LRB): BILATERAL L2-3 AND L3-4 LAMINECTOMY REVISION L4 LAMINOTOMY NON-INSTRUMENTED FUSION L3-4 (Bilateral) Pre-Procedure Diagnosis: Spinal stenosis, lumbar region, without neurogenic claudication [724.02] Post-Procedure Diagnosis: * No post-op diagnosis entered * Surgeon(s): Hang Mcclure MD Findings: Severe stenosis Estimated Blood Loss: 300 mL Specimens: * No specimens in log * Drains: none Complications: None Hang Mcclure Date: 05/03/2014 Time: 9:15 AM * No implants in log * Op Note - Hang Mcclure - 05/03/2014 12:00 AM CDT DATE OF SERVICE: 05/03/2014 PREOPERATIVE DIAGNOSES: 1. Status post L4 to sacrum fusion by Dr. Luis Daniel Hi. 2. Progressive pain and disability with walking, classic signs of neurogenic claudication. 3. 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 4. Failure of conservative measures. POSTOPERATIVE DIAGNOSES: 1. Status post L4 to sacrum fusion by Dr. Luis Daniel Hi. 2. Progressive pain and disability with walking, classic signs of neurogenic claudication. 3. 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 4. Failure of conservative measures. PROCEDURE: 1. L2-L3 laminectomy, bilateral partial medial facetectomy and foraminotomies. 2. L3-4 laminectomy, bilateral partial medial facetectomy and foraminotomies with a posterior noninstrumented fusion by decortication of the transverse processes and placing of autograft bone. 3. Revision L4 laminotomy. SURGEON: Dr. Tin Mcclure. DIRECTOR OF EVENTS: Mahesh Rodgers PA-C, who was needed for patient positioning, soft tissue retraction, patient safety and assistance with closure of the wound. ESTIMATED BLOOD LOSS: 200 mL. DRAINS: None. COMPLICATIONS: None perceived. SPECIMENS SENT: None. HISTORY OF PRESENT ILLNESS AND ILLNESS/INDICATIONS FOR PROCEDURE: This is a 73-year-old gentleman who came to see me in clinic with bilateral leg pain, worse with standing and walking, classic signs of neurogenic claudication. He had a previous spinal fusion years ago and had done well from that. We discussed at great length the situation that the surgery would be done to treat any sort of back pain as he has multilevel significant degenerative disk disease. Surgery would be done to treat his buttock and leg pain that is worse with standing and walking. It gets better with sitting down. He understood that very well and signed the informed consent. Therefore, the patient was seen in the preop area of [facility] today, 05/03/2014. The low back was marked and the consent was again reverified. He was brought to the operating room, intubated via general endotracheal anesthetic and placed on a Quique table with a Varun frame with care taken to pad all of his bony prominences. Pause for the Cause was performed correctly identifying the patient, procedure, proposed plan and radiographs and all were in agreement. This was done after the patient was prepped and draped in standard fashion for a lumbar spine procedure. We then localized his incision so as not to cause any iatrogenic tissue damage with a spinal needle and took lateral fluoroscopy. We then dissected down essentially just through his previous scar. We did not really have to make any larger of an incision. We subperiosteally dissected down over the L2 and L3 hemilamina bilaterally. There was a severe amount of scar at the L3-4 level. Once we again verified our level, we performed a laminectomy, bilateral partial medial facetectomy and foraminotomies at L2-L3 and L3-4. At the L3-4 level, there was severely hypertrophied ligamentum flavum and quite significant stenosis. We were able to decompress this nicely. We did have to remove a fair amount of facet joints to do and therefore, we placed our autograft bone in the posterolateral gutter after decorticating the transverse processes, thereby instituting a noninstrumented fusion at L3-4. At the L2-3 level, there was mostly epidural lipomatosis, so we performed a laminectomy. We did not go wide with that laminectomy, making certain that everything was intact and we protected the pars interarticularis and the facet joints. We did not do a noninstrumented fusion at this level. We then removed the overlying epidural lipomatosis. When we were finished, the thecal sac was perfectly free. There was no evidence of any continued neural compression. We, however, did note that the L4 level at the cranial aspect of the lamina was still somewhat tight; therefore, we performed a revision laminotomy at L4, undercutting the lamina and fully freeing up the thecal sac. We then irrigated the wound copiously, placed our powder Gelfoam and vancomycin powder due to his instrumentation and the revision nature of the surgery. There was very good hemostasis throughout the case. We closed the deep fascia and scar with #1 Vicryl, intermediate tissue with #1 Vicryl, subcutaneous tissue with 2-0 Vicryl and skin with a 3-0 Vicryl given the revision nature of the surgery. The patient will be weightbearing as tolerated bilateral lower extremities with strict instructions to avoid bending, lifting and twisting over the next 6 weeks. He will have early mobilization and KENAN stockings for his DVT prophylaxis and receive antibiotics x24 hours. Return to see me in 2 weeks for suture removal. He should have a corset type brace that he wear at all times except for hygiene over the next 6 weeks. HANG MCCLURE MD [facility] D 05/03/2014 09:21:55 T 05/03/2014 12:31:48 R 05/03/2014 12:31:48 [id number] cc:LUCIANO GUERRA MD documented in this encounter Plan of Treatment Not on filedocumented as of this encounter Procedures Procedure Name Priority Date/Time Associated Comments Diagnosis US LOWER EXTREMITY Routine 05/05/2014 3:03 PM Res ults for this VENOUS DUPLEX RIGHT CDT procedur e are in the results section. XR FOOT PORT RIGHT 3 Routine 05/05/2014 11:41 AM Results for this VIEWS CDT procedure are i n the results section. XR ANKLE PORT RIGHT Routine 05/05/2014 11:41 AM R esults for this G/E 3 VIEWS CDT procedure are i n the results section. XR CHEST PORT 1 VIEW Routine 05/04/2014 11:41 PM Results for this CDT procedure are i n the results section. XR CROSSTABLE Routine 05/03/2014 9:05 AM Backache Results for this LATERAL LUMBAR SPINE CDT procedu re are in PORTABLE the results section. XR SURGERY CHRIS Routine 05/03/2014 9:04 AM Backache Result s for this FLUORO GREATER THAN CDT procedur e are in 5 MIN the results section. documented in this encounter Results US Lower Extremity Venous Duplex Right (05/05/2014 3:03 PM CDT) Anatomical Region Laterality Modality Lower Extremity Other Specimen (Source) Anatomical Location Collection Method / Collectio n Time Received Time / Laterality Volume Impressions 05/05/2014 3:06 PM CDT CONCLUSION: 1. ??Right leg veins are negative for DV T. Narrative 05/05/2014 3:06 PM CDT US VENOUS LEG RIGHT 05/05/2014 3:03 PM INDICATION: Pain and swelling. TECHNIQUE: Routine exam with compression , augmentation, and duplex utilizing 2D bishop-scale imaging, Doppler interrogation with color-flow and spectral waveform analysis. COMPARISON: None. FINDINGS: The common femoral, femoral, p opliteal, and segmentally visualized calf veins were evaluated. Right leg veins are negative for deep ve nous thrombosis. No popliteal cysts. Procedure Note Daniele Laguna MD - 03/23/2021 US VENOUS LEG RIGHT 05/05/2014 3:03 PM INDICATION: Pain and swelling. TECHNIQUE: Routine exam with compression , augmentation, and duplex utilizing 2D bishop-scale imaging, Doppler interrogation with color-flow and spectral waveform analysis. COMPARISON: None. FINDINGS: The common femoral, femoral, p opliteal, and segmentally visualized calf veins were evaluated. Right leg veins are negative for deep ve nous thrombosis. No popliteal cysts. IMPRESSION: CONCLUSION: 1. Right leg veins are negative for DVT. Luciano León MD [facility] [place] US ORDERABLES XR Foot Port Right 3 Views (05/05/2014 11:41 AM CDT) Anatomical Region Laterality Modality Foot, Right Foot Right Other Specimen (Source) Anatomical Location Collection Method / Collectio n Time Received Time / Laterality Volume Narrative 05/05/2014 1:35 PM CDT XR FOOT RIGHT 3 OR MORE VWS PORTABLE 05/05/2014 11:41 AM INDICATION: Foot pain. COMPARISON: None. FINDINGS: Degenerative osteoarthritis fi rst MTP joint. Old postop changes involving the distal second metatarsal with 2 screws and residual deformity. Plantar calcaneal spur. No evidence for acute fracture. Procedure Note Selvin Khan MD - 03/23/2021Formattin g of this note might be different from the original. XR FOOT RIGHT 3 OR MORE VWS PORTABLE 05/05/2014 11:41 AM INDICATION: Foot pain. COMPARISON: None. FINDINGS: Degenerative osteoarthritis fi rst MTP joint. Old postop changes involving the distal second metatarsal with 2 screws and residual deformity. Plantar calcaneal spur. No evidence for acute fracture. Luciano León MD [facility] [place] DIAGNOSTIC IMAGING ORDER BRAYDEN XR Ankle Port Right G/E 3 Views (05/05/2014 11:41 AM CDT) Anatomical Region Laterality Modality Ankle, Right Ankle Right Other Specimen (Source) Anatomical Location Collection Method / Collectio n Time Received Time / Laterality Volume Narrative 05/05/2014 12:42 PM CDT XR ANKLE RIGHT 3 OR MORE VWS PORTABLE 05/05/2014 11:41 AM INDICATION: Ankle pain. COMPARISON: None. FINDINGS: Plantar calcaneal spur. The randall verna are intact. No evidence for fracture. Vascular calcifications. Procedure Note Selvin Khan MD - 03/23/2021Formattin g of this note might be different from the original. XR ANKLE RIGHT 3 OR MORE VWS PORTABLE 05/05/2014 11:41 AM INDICATION: Ankle pain. COMPARISON: None. FINDINGS: Plantar calcaneal spur. The randall verna are intact. No evidence for fracture. Vascular calcifications. Luciano León MD [facility] DI[facility]NOSTIC IMAGING ORDER [place]RAY[place] XR Chest Port 1 View (05/04/2014 11:41 PM CDT) Anatomical Region Laterality Modality Chest Digital Radiography Specimen (Source) Anatomical Location Collection Method / Collectio n Time Received Time / Laterality Volume Narrative 05/05/2014 12:13 AM CDT XR CHEST AP PORTABLE 05/04/2014 11:41 PM INDICATION: Fever. Confusion. COMPARISON: None. FINDINGS: Minimal right basilar opacity consistent with atelectasis or infiltrate. Left lung is grossly clear. There are postsurgical changes in cervical spine. Procedure Note Bishop Garza - 03/23/2021 XR CHEST AP PORTABLE 05/04/2014 11:41 PM INDICATION: Fever. Confusion. COMPARISON: None. FINDINGS: Minimal right basilar opacity consistent with atelectasis or infiltrate. Left lung is grossly clear. There are postsurgical changes in cervical spine. Misha Weaver MD [facility] [place] DIAGNOSTIC IMAGING ORDER BRAYDEN XR Lumbar Spine Port 1 View (05/03/2014 9:05 AM CDT) Anatomical Region Laterality Modality Spine Other Specimen (Source) Anatomical Location Collection Method / Collectio n Time Received Time / Laterality Volume Narrative 05/03/2014 2:15 PM CDT XR CROSSTABLE LATERAL LUMBAR SPINE PORTABLE 05/03/2014 9:05 AM INDICATION: Level localization for L2-3 and L3-4 laminectomy. COMPARISON: None. FINDINGS: 0.1 min Fluoroscopy time. ??As sume L4-5 fusion. ??Tip of probes at L2- 3 and level of L4 pedicle. Procedure Note Isra Dixon MD - 03/23/2021Formatting o f this note might be different from the original. XR CROSSTABLE LATERAL LUMBAR SPINE MARIN BLE 05/03/2014 9:05 AM INDICATION: Level localization for L2-3 and L3-4 laminectomy. COMPARISON: None. FINDINGS: 0.1 min Fluoroscopy time. Assu me L4-5 fusion. Tip of probes at L2-3 and level of L4 pedicle. Hang Mcclure MD [facility] [place] DIAGNOSTIC IMAGING ORDER BRAYDEN XR Surgery CHRIS Fluoro G/T 5 Min (05/03/2014 9:04 AM CDT) Anatomical Region Laterality Modality Abdomen/Pelvis Other Specimen (Source) Anatomical Location Collection Method / Collectio n Time Received Time / Laterality Volume Narrative 05/03/2014 9:05 AM CDT Please see the Surgical Report for results. Procedure Note Provider, Historical - 03/23/2021Formatt ing of this note might be different from the original. Please see the Surgical Report for resul ts. Hang Mcclure MD [facility] DI[facility]NOSTIC IMAGING ORDER [place] documented in this encounter Visit Diagnoses Diagnosis Backache Backache, unspecified documented in this encounter Additional Health Concerns Infection Onset Date Last Indicated Resolved Time MRSAComment: Positive 02/17/11 and 09/22/12 11/05/2018 019 Negatives 05/03/14 (HE), 12/01/14 (HE) documented as of this encounter Care Teams Marketing Financial Analyst Relationship Specialty Start Date End Date Primary DrDipak MD PCP - General 09/21/1204/18 Celina Coley PCP - General Family Practice 05/05/17 05/11/[address] [address] Kehinde Portillo PCP - General 05/12/[address] [address] Jon White Assigned Surgical Provider 08/10/20 12/08/20 MD [address] [place] [address] Ramiro Loco MD Assigned Heart and 08/10/20 05/11/21 [address] Vascular Provider [place] [id number] Gallito Gonzalez, Assigned Heart and 09/29/21 MD Vascular Provider [address] [place] [id number] documented as of this encounter
--- OUTSIDE RECORDS SUMMARY | 2022-05-28 05:06 | XMS_ITS | Encounter Summary ---
:1940 Author Organization [place] Address [address] [place] [id number] Care Team Providers Name Role Phone Primary Dr, Unknown MD Primary Care Provider Unavailable Reason for Visit Reason Comments Surgical Followup bilat infections Encounter Details Date Type Department Care Team Description 10/05/2012 Office Visit [facility] Sal Chaparro [facility] are following Clinic [place] F, DPM surgery of the [address] [place] [address] musculoskeletal system, [place], [place] E NEC (Primary Dx) [phone] [address] [address] [place], [place] [address] Social History Tobacco Use Types [...] Sign Reading Time Taken Comments Blood Pressure 136/80 10/05/2012 12:04 PM QUARTER TRIMMER Pulse 60 10/05/2012 12:04 PM QUARTER TRIMMER Temperature 36.8 ??C (98.2 ??F) 10/05/2012 12:04 PM QUARTER TRIMMER Respiratory Rate - - Oxygen Saturation - - Inhaled Oxygen Concentration - - Weight 93 kg (205 lb) 10/05/2012 12:04 PM QUARTER TRIMMER Height 170.2 cm (5' 7) 10/05/2012 12:04 PM QUARTER TRIMMER Body Mass Index 32.11 10/05/2012 12:04 PM QUARTER TRIMMER documented in this encounter Progress Notes Sal Chaparro DPM - 10/18/2012 9:20 PM CST Subjective: Patient is seen today 1 wk post op from a . Hardware removal - deep, left foot. 2. Revision surgical matrixectomy, right great toe Patient is doing well, admits compliance, denies fevers, chills, nausea or vomiting. Continues to use post-op shoe. Pt daughter is worried about gout vs. MRSA infection. Objective: Dressing is dry, upon removal wound is well coapted, sutures are intact. Pulses are palpable, sensation to light touch is intact. Patient has slightly limited muscle strength and ROM. Minimal signs of edema, no sign of erythema, infection, ulceration, or drainage on the left. Assessment: 1 wk post op Plan: Sterile redress on the lt. Instructions to keep dressing on and dry. Continue with ice and compression. Limit activities with partial weight bearing in a post-op shoe. R/O Gout New wound culture and empirical abx Call with questions or concerns and follow-up in 1-[address] TER TRIMMER documented in this encounter Plan of Treatment Not on filedocumented as of this encounter Procedures Procedure Name Priority Date/Time Associated Diagnosis Comme nts CBC WITH PLATELETS & Routine 10/05/2012 12:21 Aftercare follow ing Results for this DIFFERENTIAL PM QUARTER TRIMMER surgery of the procedure are in musculoskeletal system, the results NEC section. URIC ACID Routine 10/05/2012 12:21 Aftercare following Resu lts for this PM QUARTER TRIMMER surgery of the procedure are in musculoskeletal system, the results NEC section. BASIC METABOLIC Routine 10/05/2012 12:21 Aftercare following R esults for this PANEL PM QUARTER TRIMMER surgery of the procedure are in musculoskeletal system, the results NEC section. WOUND CULTURE Routine 10/05/2012 12:20 Aftercare following Res ults for this AEROBIC BACTERIAL PM QUARTER TRIMMER surgery of the procedur e are in musculoskeletal system, the results NEC section. documented in this encounter Results (ABNORMAL) Basic metabolic panel (Ca, Cl, CO2, Creat, Gluc, K, Na, BUN) (10/05/2012 12:21 PM QUARTER TRIMMER) Analysis Performed At [facility] logist Time Signature Sodium 140 133 - 144 [place] mmol/L [facility] Potassium 4.8 3.4 - 5.3 [place] mmol/L [facility] Chloride 103 94 - 109 [facility] mmol/L [facility] Carbon Dioxide 25 20 - 32 [facility] mmol/L [facility] Anion Gap 12 6 - 17 [place] mmol/L [facility] Glucose 108 (H) 60 - 99 [place] mg/dL [facility] Urea Nitrogen 23 7 - 30 [place] mg/dL [facility] Creatinine 1.41 (H) 0.66 - [facility] 1.25 mg/dL [facility] GFR Estimate 50 (L) >60 [place] mL/min/1.7 [facility] m2 LAB GFR Estimate If 60 (L) >60 [place] Black mL/min/1.7 [facility] m2 LAB Calcium 9.5 8.5 - 10.4 [place] mg/dL [facility] Specimen Anatomical Collection Method Collection Time Receive d Time (Source) Location / / Volume Laterality Blood specimen 10/05/2012 12:21 2 (specimen) PM QUARTER TRIMMER 12:22 PM QUARTER TRIMMER Sal Chaparro DPM LAB - BLOOD ORDERABLES Performing Organization Address City/State/ZIP Code Phon e Number [facility] [address] [place] [address] [facility] (ABNORMAL) CBC with platelets and differential (10/05/2012 12:21 PM QUARTER TRIMMER) [facility] gist Method Time Signature WBC 7.8 4.0 - [facility] 11.0 [facility] 10e9/L CLINIC LAB RBC Count 4.45 4.4 - 5.9 [place] 10e12/L [facility] Hemoglobin 14.6 13.3 - [facility] 17.7 g/dL [facility] Hematocrit 43.2 40.0 - [facility] 53.0 % [facility] MCV 97 78 - 100 [facility] MCH 32.8 26.5 - [place] 33.[address] [facility] MCHC 33.8 31.5 - [place] 36.5 g/dL [facility] RDW 12.9 10.0 - [place] 15.0 % [facility] Platelet Count 152 150 - 450 [place] 10e9/L [facility] Diff Method Automated [place] Method [facility] % Neutrophils 62.1 40 - 75 % [facility] % Lymphocytes 18.9 (L) 20 - 48 % [facility] % Monocytes 13.4 (H) 0 - 12 % [facility] % Eosinophils 5.2 0 - 6 % [facility] % Basophils 0.4 0 - 2 % [facility] Absolute 4.9 1.6 - 8.3 [place] Neutrophil 10e9/L [facility] Absolute 1.5 0.8 - 5.3 [place] Lymphocytes 10e9/L [facility] Absolute 1.1 0.0 - 1.3 [place] Monocytes 10e9/L [facility] Absolute 0.4 0.0 - 0.7 [place] Eosinophils 10e9/L [facility] Absolute 0.0 0.0 - 0.2 [place] Basophils 10e9/L [facility] Specimen Anatomical Collection Method Collection Time Receive d Time (Source) Location / / Volume Laterality Blood specimen 10/05/2012 12:21 2 (specimen) PM QUARTER TRIMMER 12:22 PM QUARTER TRIMMER Sal Chaparro DPM LAB - BLOOD ORDERABLES Performing Organization Address City/State/ZIP Code Phon e Number [facility] [address] [place] [address] [facility] Uric acid (10/05/2012 12:21 PM QUARTER TRIMMER) P athologist Signature Uric Acid 7.1 3.5 - 8.5 [place] mg/dL CLINIC LAB Specimen Anatomical Collection Method Collection Time Receive d Time (Source) Location / / Volume Laterality Blood specimen 10/05/2012 12:21 2 (specimen) PM QUARTER TRIMMER 12:22 PM QUARTER TRIMMER Sal Chaparro DPJami LAB - BLOOD ORDERABLES Performing Organization Address City/State/ZIP Code Phon e Number [facility] [address] [place] [address] [facility] Wound culture (10/05/2012 12:20 PM QUARTER TRIMMER) [facility] Method Time Signature Specimen Other [facility] Culture Micro No growth [facility] MICROBIOLOGY Micro Report FINAL [facility] Status 10/07/2012 MICROBIOLOGY Specimen Anatomical Collection Method Collection Time Receive d Time (Source) Location / / Volume Laterality Specimen from 10/05/2012 12:20 10/05/2012 wound (specimen) PM QUARTER TRIMMER 12:41 PM CS T Sal Chaparro DPM LAB - MICRO GENERAL ORDERABL ES Performing Organization Address City/State/ZIP Code Phon e Number [facility] [address] [place] [address] [facility] MICROBIOLOGY documented in this encounter Visit Diagnoses Diagnosis Aftercare following surgery [facility] los[facility] system, NEC - Primary documented in this encounter Care Teams Pot Reliner Relationship Specialty Start Date End Date Primary Dipak Kasper MD PCP - General 09/21/1204/18 documented as of this encounter
--- OUTSIDE RECORDS SUMMARY | 2022-05-28 05:06 | XMS_ITS | Encounter Summary ---
:1940 Author Organization [facility] Address [address] [place] [address] Care Team Providers Name Role Phone Primary DrDipak MD Primary Care Provider Unavailable Celina Coley Primary Care Provider [facility] Primary Care Provider [phone] Jon White MD Unavailable [phone] Ramiro Loco MD Unavailable Encounter Details Date Type Department Care Team Description 05/03/2014 Surgery - [facility] Hang Mcclure, [facility] OR [facility] [address] [place] [address] 17 [facility] [address] [address] [place] [address] [phone] (Wo rk) Social History Tobacco Use Types [...] 5:00 PM CDT documented in this encounter Plan of Treatment Not on filedocumented as of this encounter Visit Diagnoses Not on filedocumented in this encounter Additional Health Concerns Infection Onset Date Last Indicated Resolved Time MRSAComment: Positive 02/17/11 and 09/22/12 11/05/2018 019 Negatives 05/03/14 (HE), 12/01/14 (HE) documented as of this encounter Care Teams Transformer Shop Supervisor Relationship Specialty Start Date End Date Primary Dipak Kasper MD PCP - General 09/21/1204/18 Celina Coley PCP - General Family Practice 05/05/17 05/11/[address] [address] [facility] P[facility] - General 05/12/[address] [address] Jon White Assigned Surgical Provider 08/10/20 12/08/20 MD [address] [place] [address] Ramiro Loco MD Assigned Heart and 08/10/20 05/11/21 [address] Vascular Provider [place] [address] documented as of this encounter
--- OUTSIDE RECORDS SUMMARY | 2022-05-28 05:06 | XMS_ITS | Encounter Summary ---
:1940 Author Organization [facility] Address [address] [place] [address] Care Team Providers Name Role Phone Celina Coley Primary Care Provider Reason for Visit Auth/Cert Specialty Diagnoses / Procedures Referred By Contact Refer red To Contact Intensive Care Diagnoses Opioid overdose, accidental or unintentional, initial encounter (H) Aspiration pneumonia, unspecified aspiration pneumonia type, unspecified laterality, unspecified part of lung (H) Unresponsiveness Intensive Care [address] [place] [address] Phone: Referral ID Status Reason Start Date Expiration Date Visits Requ ested Visits Authorized [id number] 1 1 Encounter Details Date Type Department Care Team Description 05/06/2017 Anesthesia Event [facility] ESTIMATOR LUMBER SALES AND MERCHANDISING ASSOCIATE [address] [place] [address] ANES [phone] [place] [address] (Wo rk) Anesthesia Record Procedure Summary Procedure Name Responsible Anesthesiologist Anesthesia Start Ti me Anesthesia Stop Time IV START 05/06/17212005/06/172140 Events Date Time Event Comment 05/06/20172120 An Start 2140 Quick Note Diagnosis: Venou s Insufficiency Procedure: IV Start Ordering Yadirai an: Dr Rodriguez Location:[facility] ICU 357 2141 An Stop Electronically s igned by Albino Benavidez on May 06, 2017 9:45 PM No medications on file. Agents No agents on file. Blood No blood administrations on file. Lines, Drains, and Airways Type Details Placement Removal Incision/Surgical Site 09/30/12; 1224; Left; 09/30/12 1224 by [id number] by Foot; 09/29/18; 1456 Iwona Ruiz RN Kabwe, [place], RN Urethral Catheter 05/05/17; 1720; No; 05/05/17 1720 by 05/10/17 0622 by Other (Comment) Warner Montes RN Darby, Timo thy J, (difficulty standing, ESTIMATOR LUMBER LIGHTING ENGINEER alerted mental status) Peripheral IV 05/06/17; 2135; 20 G; 05/06/17 2135 by 05/08/17 0300 by Right; Lower forearm; Albino Benavidez APRN Graa lum, Scott, RN Alcohol; Injectable; SALES AND MERCHANDISING ASSOCIATE Tolerated well Peripheral IV 05/06/17; 2140; 20 G; 05/06/17 2140 by 05/08/17 1619 by Right; Upper forearm; Albino Benavidez APRN With am Rosette Alcohol; Injectable; SALES AND MERCHANDISING ASSOCIATE JOSE Clifton Tolerated well documented in this encounter Social History Tobacco [...] on filedocumented in this encounter Care Teams Cubing Machine Tender Relationship Specialty Start Date End Date Celina Coley PCP - General Family Practice 05/05/17 05/11/[address] [address] documented as of this encounter
--- OUTSIDE RECORDS SUMMARY | 2022-05-28 05:06 | XMS_ITS | Encounter Summary ---
:1940 Author Organization [facility] Address [address] [place] [address] Care Team Providers Name Role Phone Primary Dr, Unknown MD Primary Care Provider Unavailable Reason for Visit Auth/Cert - Closed Specialty Diagnoses / Procedures Referred By Contact Refer red To Contact Surgery Diagnoses painful internal fixation left foot Rh Periop Services Procedures REMOVE HARDWARE FOOT [address] [place], [place] [address] Fax: Referral ID Status Reason Start Date Expiration Date Visits Requ ested Visits Authorized [id number] Closed 1 1 Encounter Details Date Type Department Care Team Description 09/30/2012 Hospital Encounter [facility] Alvin Trujillo following Andres Castellanos DPM surgery of the PreOP/PostOP [address] [place] musculoskeletal system, [address] [facility] E NEC (Primary Dx) [facility] [address] [place] [id number] [phone] Social History Tobacco Use Types Packs/Day Years [...] Sign Reading Time Taken Comments Blood Pressure 130/79 09/30/2012 2:45 PM DISPLAY SPECIALIST Pulse - - Temperature 36.2 ??C (97.2 ??F) 09/30/2012 2:45 PM DISPLAY SPECIALIST Respiratory Rate 16 09/30/2012 2:45 PM DISPLAY SPECIALIST Oxygen Saturation 98% 09/30/2012 2:45 PM DISPLAY SPECIALIST Inhaled Oxygen Concentration - - Weight 93 kg (205 lb) 09/30/2012 10:24 AM DISPLAY SPECIALIST Height 170.2 cm (5' 7) 09/30/2012 10:24 AM DISPLAY SPECIALIST Body Mass Index 32.11 09/30/2012 10:24 AM DISPLAY SPECIALIST documented in this encounter Discharge Instructions Discharge InstructionsNai Galarza RN - 09/30/2012 1:41 PM CST GENERAL ANESTHESIA OR SEDATION ADULT DISCHARGE INSTRUCTIONS SPECIAL PRECAUTIONS FOR 24 HOURS AFTER SURGERY IT IS NOT UNUSUAL TO FEEL LIGHT-HEADED OR FAINT, UP TO 24 HOURS AFTER SURGERY OR WHILE TAKING PAIN MEDICATION. IF YOU HAVE THESE SYMPTOMS; SIT FOR A FEW MINUTES BEFORE STANDING AND HAVE SOMEONE ASSIST YOU WHEN YOU GET UP TO WALK OR USE THE BATHROOM. YOU SHOULD REST AND RELAX FOR THE NEXT 24 HOURS AND YOU MUST MAKE ARRANGEMENTS TO HAVE SOMEONE STAY WITH YOU FOR AT LEAST 24 HOURS AFTER YOUR DISCHARGE. AVOID HAZARDOUS AND STRENUOUS ACTIVITIES. DO NOTMAKE IMPORTANT DECISIONS FOR [address] ANY VEHICLE OR OPERATE MECHANICAL EQUIPMENT FOR 24 HOURS FOLLOWING THE END OF YOUR SURGERY. EVEN THOUGH YOU MAY FEEL NORMAL, YOUR REACTIONS MAY BE AFFECTED BY THE MEDICATION YOU HAVE RECEIVED. DO NOT DRINK ALCOHOLIC BEVERAGES FOR 24 HOURS FOLLOWING YOUR SURGERY. DRINK CLEAR LIQUIDS (APPLE JUICE, RAKESH JULIA, 7-UP, BROTH, ETC.). PROGRESS TO YOUR REGULAR DIET YOU FEEL ABLE. YOU MAY HAVE A DRY MOUTH, A SORE THROAT, MUSCLES ACHES OR TROUBLE SLEEPING. THESE SHOULD GO AWAY AFTER 24 HOURS. CALL YOUR DOCTOR FOR ANY OF THE FOLLOWING: SIGNS OF INFECTION (FEVER, GROWING TENDERNESS AT THE SURGERY SITE, A LARGE AMOUNT OF DRAINAGE OR BLEEDING, SEVERE PAIN, FOUL-SMELLING DRAINAGE, REDNESS OR SWELLING. IT HAS BEEN OVER 8 TO 10 HOURS SINCE SURGERY AND YOU ARE STILL NOT ABLE TO URINATE (PASS WATER). PODIATRIC OR ANKLE DISCHARGE INSTRUCTIONS YOUR FOLLOW-UP VISIT IS SCHEDULED FOR: (date) SIDE EFFECTS OF FOOT AND ANKLE SURGERY: SWELLING AND BRUISING ARE NORMAL. SOME BLOOD MAY SOAK THROUGH THE BANDAGE. PAIN WE WILL PRESCRIBE PAIN MEDICINE. TAKE DIRECTED. DO NOT DRINK ALCOHOL WHILE TAKING THE PAIN MEDICINE. DO NOT DRIVE WHILE ON PAIN MEDICINE. YOU MAY TAKE TYLENOL (ACETAMINOPHEN) OR ADVIL (IBUPROFEN). DO NOT TAKE MORE THAN THE AMOUNT ALLOWED IN 24 HOURS. CARE OF FOOT/ANKLE KEEP THE BANDAGE CLEAN AND DRY. DO NOT REMOVE IT. APPLY ICE PACKS ON TOP OF THE BANDAGE FOR 15 TO 20 MINUTES EACH HOUR YOU ARE AWAKE. DO THIS FOR THE NEXT 3 DAYS. YOU MAY ALSO ICE THE INSIDE OF THE ANKLE OR BEHIND THE KNEE. CHECK THE COLOR OF YOUR TOES THREE TIMES A DAY. ACTIVITY KEEP YOUR FOOT RAISED ON A PILLOW OR CHAIR FOR 48 HOURS, EXCEPT FOR GOING TO THE BATHROOM. FOR THE NEXT WEEK, KEEP YOUR FOOT RAISED WHEN NOT MOVING ABOUT. IF YOU HAVE CRUTCHES OR A SURGICAL SHOE, USE DIRECTED BY YOUR DOCTOR. TAKE IT EASY. TOO MUCH ACTIVITY WILL CAUSE YOUR FOOT TO SWELL, THROB OR ACHE. CALL YOUR DOCTOR IF: YOUR BANDAGE BECOMES SOAKED WITH BLOOD OR THE BLEEDING DOES NOT STOP. YOU HAVE A FEVER HIGHER THAT 100.5 DEGREES, TAKEN UNDER THE TONGUE. YOU HAVE UNUSUAL DISCOMFORT OR ANY QUESTIONS. SURGEON'S OFFICE: DR. SAL TRUJILLO M.D. CLINIC PHONE NUMBER: [phone]. LAY SPECIALIST documented in this encounter Medications at Time [...] external solution daily as needed. HYDROcodone-acetaminophen Take 1-2 tablets by 30 tablet [...] by mouth 0 0 05/05/2017 At Bedtime. terazosin (HYTRIN) 2 MG Take 5 mg by mouth 0 05/05/2017 capsule At Bedtime TOLTERODINE TARTRATE PO Take 4 mg by mouth 0 05/05/2017 daily. Extended release (every 24hrs) documented as of this encounter H&P Notes Sal Trujillo DPM - 09/23/2012 4:09 PM CST LAY SPECIALIST documented in this encounter Nursing Notes Iwona Ruiz RN - 09/30/2012 12:33 PM CST First Panel started at 1210 and ended at 1230. Second panel started at 1230 and ended at 1237. Jen Ruiz RN LAY SPECIALIST Iwona Ruiz RN - 09/30/2012 12:22 PM CST Patient did not want his hardware that was removed from procedure on 09/30/[address] Trujillo. Jen Ruiz RN LAY SPECIALIST documented in this encounter OR Notes OR Anesthesia - Sal Trujillo DPM - 10/01/2012 9:43 AM CST LAY SPECIALIST documented in this encounter Miscellaneous Notes Op Note - Sal Trujillo DPM - 10/01/2012 8:45 AM CST PREOPERATIVE DIAGNOSES: 1. Retained painful internal fixation, left foot. 2. Recurrence of painful right great toenail. POSTOPERATIVE DIAGNOSES: 1. Retained painful internal fixation, left foot. 2. Recurrence of painful right great toenail. PROCEDURES: 1. Hardware removal - deep, left foot. 2. Revision surgical matrixectomy, right great toe. ANESTHESIA: Monitored anesthesia care with local infiltration. ESTIMATED BLOOD LOSS: Less than 5 cc. ANTIBIOTICS: The patient received antibiotics IV preoperatively. INDICATIONS: Elda Hendricks is a 72-year-old male with a well-healed second metatarsal fracture left foot continues to complain of pain, requesting operative removal. Preoperative and postoperative course discussed with the patient. We discussed potential complications and convalescence post surgery. Po tential complications include but are not limited to continued postoperative pain, swelling, numbness, infection, overcorrection, under-correction, recurrence, delayed healing, anesthesia risks, RSDS, DVT/PE or the possible necessity for further operative intervention in the future. The patient underst ands the nature of the procedure and understands there are no guarantees with this. The patient has informed consent. DESCRIPTION OF PROCEDURE: The patient was brought into the operating room, placed on the OR table pepe supine position. Following administration of IV sedation by Anesthesia, a total of 10 cc of a 1:1 mix of 0.5% Marcaine plain with 1% lidocaine plain was used between his left and right foot. A well-padded pneumatic ankle tourniquet was placed around the left ankle. Both feet and ankles were prepped and draped in the usual aseptic manner. Limb was then exsanguinated with an Esmarch bandage. Pause for the cause was performed and the tourniquet inflated to 250 mmHg on the left-hand side. Attention was directed to the left foot where an incision was made over the past incision. This was deepened downto deep fascia. Care was taken to retract and protect all vital structures. Hemostasis was obtained where necessary. A small Synthes locking plate was identified, 4 screws were removed without difficulty. Bone appeared to be well-healed. Tourniquet was dropped. Hemostasis was obtained. Wound was thoroughly flushed with generous amounts of sterile saline. Deep closure with 3- 0 and 4-0 Vicryl and skin with 4-0 Prolene. A well-padded dressing placed on his left foot. Attention then directed to the right foot where a small digital Tourni-cot was placed for hemostasis. I was able to carefully examine it. It appeared as though part of the nail had started to grow back. This was avulsed and then I was able to re-excise the germinal matrix all the way down to periosteum. This was then cauterized with electrocautery and then closed with 4- 0 chromic type suture. Digital Tourni-cot was removed. The patienthad good capillary refill time noted to his right great toe. Well-padded dressing was placed. The patient tolerated anesthesia and procedure without complication and was taken from the OR to the PACU with all vital signs and vascular status intact. SAL TRUJILLO DPM MT: [id number] Name: ELDA HENDRICKS Account: [id number] : 1940 Procedure Date: 09/30/2012 Document: [id number] cc: Ramiro Walker MD LAY SPECIALIST Brief Op Note - Sal Trujillo DPM - 09/30/2012 1:01 PM CST [facility] Podiatry/Foot and Ankle Surgery Brief Operative Note Pre-operative diagnosis: Painful Internal Fixation left foot Painful recurrence of toenail right great toe Post-operative diagnosis same Procedure: Procedure(s): Hardware Removal left foot - Deep Surgical matrixectomy right great toe Surgeon: SAL TRUJILLO DPM Assistants(s): Anesthesia: MAC Estimated blood loss: 5 cc LAY SPECIALIST documented in this encounter Plan of Treatment Not on filedocumented as of this encounter Procedures Procedure Name Priority Date/Time Associated Diagnosis Comme nts XR FOOT PORT LEFT 3 Routine 09/30/2012 1:44 PM Re sults for this VIEWS DISPLAY SPECIALIST procedure are i n the results section. EXCISION, TOENAIL 09/30/2012 11:41 AM painful internal DISPLAY SPECIALIST fixation left foot Special Needs 5# Hx MRSA REMOVAL, HARDWARE, FOOT 09/30/2012 11:41 AM DISPLAY SPECIALIST painfu l internal fixation left foot Special Needs # Hx MRSA EKG 12-LEAD, TRACING ONLY Routine 09/30/2012 11:38 AM DISPLAY SPECIALIST Results for this procedure are in the resu lts section. HIM ECG SCAN Routine 09/30/2012 documented in this encounter Results X-ray LEFT Foot 3 vw port (09/30/2012 1:44 PM DISPLAY SPECIALIST) Anatomical Region Laterality Modality Left Foot Left Other Specimen (Source) Anatomical Collection Method Collection Time Re ceived Time Location / / Volume Laterality 09/30/2012 1:44 PM DISPLAY SPECIALIST Impressions 10/01/2012 10:47 AM DISPLAY SPECIALIST IMPRESSION: Postoperative and degenerative change. No acute abnormality. ODILON RANDOLPH MD Narrative 10/01/2012 10:47 AM DISPLAY SPECIALIST LEFT FOOT THREE OR MORE VIEWS PORTABLE ? ? 09/30/2012 ?? 1:44 PM HISTORY: Postop. COMPARISON: 07/30/2012. FINDINGS: Mild degenerative changes are present at the first MTP joint, slightly progressed in comparison with the most recent previous exam. Deformity of the second m etatarsal related to previous fracture and hardware placement. No acut e abnormality. Procedure Note Odilon Randolph MD - 10/01/2012For matting of this note might be different from the original. LEFT FOOT THREE OR MORE VIEWS PORTABLE 1 12/01/2011 1:44 PM HISTORY: Postop. COMPARISON: 07/30/2012. FINDINGS: Mild degenerative changes are present at the first MTP joint, slightly progressed in comparison with the most recent previous exam. Deformity of the second m etatarsal related to previous fracture and hardware placement. No acut e abnormality. IMPRESSION IMPRESSION: Postoperative and degenerati ve change. No acute abnormality. ODILON RANDOLPH MD Sal Trujillo DPM IMG DIAGNOSTIC IMAGING ORDER [place] EKG 12-lead, tracing only (09/30/2012 11:38 AM DISPLAY SPECIALIST) Component Value Ref Range Test Analysis Performed Pathologis t Method Time At Signature Ventricular Rate 64 BPM RADIOLOGY RESULTS Atrial Rate 64 BPM RADIOLOGY RESULTS ID Interval 154 ms RADIOLOGY RESULTS QRS Duration 80 ms RADIOLOGY RESULTS QT 410 ms RADIOLOGY RESULTS QTc 422 ms RADIOLOGY RESULTS P [place] -1 degrees RADIOLOGY RESULTS R AXIS -9 degrees RADIOLOGY RESULTS T [place] -7 degrees RADIOLOGY RESULTS Interpretation Sinus rhythm RADIOLOGY ECG RESULTS Interpretation Possible Anterior RADIOLO GY ECG infarct , age RESULTS undetermined Interpretation Abnormal ECG RADIOLOGY ECG RESULTS Interpretation Unconfirmed report - interpr etation of this ECG is computer generated - see RADIOLOGY ECG medical record for final interpretation RESULTS Specimen (Source) Anatomical Collection Method Collection Time Re ceived Time Location / / Volume Laterality 09/30/2012 11:38 AM DISPLAY SPECIALIST Doctor Unknown MD ECG ORDERABLES Performing Organization Address City/State/ZIP Code Phon e Number RADIOLOGY RESULTS ECG - HIM ECG Scan (09/30/2012) Narrative This result has an attachment that is no t available. Sal Trujillo DPJami ECG ORDERABLES documented in this encounter Visit Diagnoses Diagnosis Aftercare following surgery of the [facility], NEC - Primary documented in this encounter Administered Medications Inactive Administered Medications - up to 3 most recent administrations Medication Order MAR Action Action Date Dose Rate Site fentaNYL (SUBLIMAZE) injection Given 09/30/2012 2:16 PM DISPLAY SPECIALIST 50 m cg 25-50 mcg 25-50 mcg, Intravenous, EVERY 2 MIN PRN, other, acute pain, Starting on Yesenia 09/30/12 at 1251, MAX cumulative dose = 250 mcg. Use Fentanyl initially, as a short acting agent for acute pain control. If insufficient, or a longer acting agent is needed, begin Morphine or Hydromorphone if ordered., PACU Given 09/30/2012 1:33 PM DISPLAY SPECIALIST 50 mcg HYDROcodone-acetaminophen 5-325 MG per Given 09/30/2012 2:16 PM DISPLAY SPECIALIST 1 tablet tablet 1-2 tablet 1-2 tablet, Oral, ONCE, On Yes[place] 09/30/12 at 1330, For 1 dose, One time prior to discharge., Post-procedure lactated ringers infusion New Bag 09/30/2012 1:33 PM DISPLAY SPECIALIST 1,000 mLs 100 mL/hr at 100 mL/hr, Intravenous, CONTINUOUS, Continue until IV catheter is weaned, PACU, Starting on Yesenia 09/30/12 at 1300, Until Yesenia 09/30/12 at 1723 documented in this encounter Active and Recently Administered Medications Times are shown in DISPLAY SPECIALIST. Scheduled Medication Order 09/28/2012 09/29/2012 09/30/2012 HYDROcodone-acetaminophen 5-325 MG per tablet 1-2 tablet (COMPLE KENAN) 1416 (Given - Provider: Nai Galarza, JOSE) 1-2 tablet, Oral, ONCE, Yesenia 09/30/12 at 1330, For 1 dose, One time prior to discharge., Post-procedure Continuous Medication Order 09/28/2012 09/29/2012 09/30/2012 lactated ringers infusion (CANCELED) 1333 (New Bag - Provider: Nai Galarza, JOSE) at 100 mL/hr, Intravenous, CONTINUOUS, C ontinue until IV catheter is weaned, PACU PRN Medication Order 09/28/2012 09/29/2012 09/30/2012 bupivacaine (MARCAINE) injection 0.5% (PF) (CANCELED) 1238 (Given - Provider: Sal Trujillo DPM - Comment: 7.5mL of 1% Lidocaine mixed with 7.5mL of 0.5% BUPivicaine was injected for a total of 10mL prior to incision of Left foot.) PRN, Starting Yesenia 09/30/12 at 1238, Intra-procedure clindamycin (CLEOCIN) IVPB 900 mg (CANCELED) 1152 (Given - Provider: Lety Guzman, TERESITA SUPERVISOR WOOD ROOM) 900 mg, Intravenous, for 60 Minutes, EMIL RY 6 HOURS PRN, Intra-Op Dose. Give every 6 hours while patient in surgery, starting 6 hours after pre-op dose. DO NOT GIVE intra-op dose if CrCl < 10 mL/min ( on dialysis). If CrCL < 50 mL/min, doubl e the time interval between doses., Starting Yesenia 09/30/12 at 1034, Pre-procedure fentaNYL (SUBLIMAZE) injection 25-50 mcg (CANCELED) 1333 (Given - Provider: Nai Galarza, JOSE)1416 (Given - Provider: Nai Galarza, JOSE) 25-50 mcg, Intravenous, EVERY 2 MIN PRN, Starting Yes[place] 09/30/12 at 1251, other, acute pain, MAX cumulative dose = 250 mcg. Use Fentanyl initially, as a short acting agent for acute pain control. If insuf ficient, or a longer acting agent is nee ded, begin Morphine or Hydromorphone if ordered., PACU lidocaine (PF) (XYLOCAINE) 1 % injection (CANCELED) 1238 (Canceled Entry - Provider: Sal Trujillo DPM)1240 (Given - Provider: Sal Trujillo DPM - Comment: Into Right great toe) PRN, Starting Yesenia 09/30/12 at 1238, Intra-procedure sodium chloride 0.9% (bottle) irrigation (CANCELED) 1241 (Given - Provider: Sal Trujillo DPM) PRN, Starting Yesenia 09/30/12 at 1241, Area to irrigate and instructions: ., Intra-procedure documented in this encounter Care Teams Roll Edge Machine 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
--- OUTSIDE RECORDS SUMMARY | 2022-05-28 05:06 | XMS_ITS | Encounter Summary ---
:1940 Author Organization [facility] Address [address] [place] [address] Care Team Providers Name Role Phone Primary Dr, Dipak WELSH Primary Care Provider Unavailable Celina Coley Primary Care Provider [facility] Primary Care Provider [phone] Jon White MD Unavailable [phone] Ramiro Loco MD Unavailable Gallito Gonzalez MD Unavailable Encounter Details Date Type Department Care Team Description 05/03/2014 Records - [facility] CONVERSION Scan, Non-Provider Social History Tobacco Use Types Packs/Day Years [...] Priority Date/Time Associated Diagnosis Comme nts EKG CARDIAC - HIM SCAN 05/03/2014 documented in this encounter Results EKG CARDIAC - HIM SCAN (05/03/2014) Specimen (Source) Anatomical Location Collection Method / [...] documented as of this encounter Care Teams Carbon Cutter Relationship Specialty Start Date End Date Primary Dr, Dipak, PCP - General 09/21/1204/18 Celina Coley PCP - General Family Practice 05/05/17 05/11/[address] [address] [facility] - General 05/12/[address] [address] Jon White Assigned Surgical Provider 08/10/20 12/08/20 MD [address] [place] [address] Ramiro Loco MD Assigned Heart and 08/10/20 05/11/21 [address] Vascular Provider [place] [address] Gallito Gonzalez, Assigned Heart and 09/29/21 Vascular Provider [address] [place] [address] documented as of this encounter
--- OUTSIDE RECORDS SUMMARY | 2022-05-28 05:06 | XMS_ITS | Encounter Summary ---
:1940 Author Organization [facility] Address [address] [place] [address] Care Team Providers Name Role Phone Primary Dr, Unknown MD Primary Care Provider Unavailable Reason for Visit Reason Comments Surgical Followup bilateral post op Encounter Details Date Type Department Care Team Description 10/22/2012 Office Visit [facility] Sal Chaparro re following Yariel Castellanos DPJami surgery of the [address] [place] [address] musculoskeletal system, [place] [address] E NEC (Primary Dx) [phone] [address] [place], [place] [address] Social History Tobacco Use Types [...] - - Weight 93 kg (205 lb) 10/22/2012 9:14 AM ROUTER MACHINE OPERATOR Height 170.2 cm (5' 7) 10/22/2012 9:14 AM ROUTER MACHINE OPERATOR Body Mass Index 32.11 10/22/2012 9:14 AM ROUTER MACHINE OPERATOR documented in this encounter Progress Notes Sal Chaparro DPM - 10/25/2012 9:27 PM CST Subjective: Patient is seen today 3 wks post op from a . Hardware removal - deep, left foot. 2. Revision surgical matrixectomy, right great toe Patient is doing well, admits compliance, denies fevers, chills, nausea or vomiting. Continues to use post-op shoe. Pt daughter is worried about gout vs. MRSA infection. Objective: Pulses are palpable, sensation to light touch is intact. Patient has slightly limited muscle strength and ROM. Minimal signs of edema, no sign of erythema, infection, ulceration, or drainage on the left. Assessment: 3 wks post op Plan: Sterile redress on the lt and suture removal. Instructions to keep dressing on and dry. Continue with ice and compression. Limit activities with partial weight bearing in a post-op shoe and working into regular shoes. Call with questions or concerns and follow-up in prn. ER MACHINE OPERATOR documented in this encounter Nursing Notes 10/22/2012 9:00 AM CST >> MELL MAGANA Fri Oct 22, 2012 9:14 AM Patient presents with: Surgical Followup - bilateral post op Mell Magana CMA documented in this encounter Plan of Treatment Not on filedocumented as of this encounter Visit Diagnoses Diagnosis Aftercare [place] [facility] [place] - Primary documented in this encounter Care Teams Hydraulic 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
--- OUTSIDE RECORDS SUMMARY | 2022-05-28 05:06 | XMS_ITS | Encounter Summary ---
:1940 Author Organization [facility] Address [address] [place] [address] Care Team Providers Name Role Phone Primary DrDipak MD Primary Care Provider Unavailable Celina Coley Primary Care Provider [facility] [place] Primary Care Provider [phone] Jon White MD Unavailable [phone] Ramiro Loco MD Unavailable Encounter Details Date Type Department Care Team Description 11/29/2014 Surgery - [facility] Hang [place], [facility] OR [facility] [address] [place] [address] [address] [id number] [place] [address] [phone] (Wo rk) Social History Tobacco Use Types [...] 90.7 kg (200 lb) 11/29/2014 9:33 AM INSOLVENCY PRACTITIONER Height 180.3 cm (5' 11) 11/29/2014 9:33 AM INSOLVENCY PRACTITIONER Body Mass Index 27.89 11/29/2014 9:33 AM INSOLVENCY PRACTITIONER documented in this encounter Plan of Treatment Not on filedocumented as of this encounter Visit Diagnoses Not on filedocumented in this encounter Additional Health Concerns Infection Onset Date Last Indicated Resolved Time MRSAComment: Positive 02/17/11 and 09/22/12 11/05/2018 019 Negatives 05/03/14 (HE), 12/01/14 (HE) documented as of this encounter Care Teams Statistics Manager Relationship Specialty Start Date End Date Primary Dipak Kasper MD PCP - General 09/21/1204/18 Celina Coley PCP - General Family Practice 05/05/17 05/11/[address] [address] [facility] - General 05/12/[address] [address] Jon White Assigned Surgical Provider 08/10/20 12/08/20 MD [address] [place] [address] Ramiro Loco MD Assigned Heart and 08/10/20 05/11/21 [address] [place] [address] Vascular Provider [place] [address] documented as of this encounter
--- OUTSIDE RECORDS SUMMARY | 2022-05-28 05:06 | XMS_ITS | Encounter Summary ---
:1940 Author Organization [facility] Address [address] [place] [address] Care Team Providers Name Role Phone Primary Dr, Dipak WELSH Primary Care Provider Unavailable Reason for Visit Reason Comments Derm Problem MOHS Encounter Details Date Type Department Care Team Description 11/06/2016 Office Visit [facility] Jon White Basal cell carcinoma of nose (Primary Dx); Clinic [place] MD Aubrey Lentigo; [place] [address] (seborrheic keratosis); [address] [address] [place], [place] [phone] (Work) [phone] Social History Tobacco Use Types Packs/Day Years [...] Sign Reading Time Taken Comments Blood Pressure 203/105 11/06/2016 10:05 AM HIGH DENSITY PRESS OPERATOR Pulse 64 11/06/2016 10:05 AM HIGH DENSITY PRESS OPERATOR Temperature - - Respiratory Rate - - Oxygen Saturation 96% 11/06/2016 10:05 AM HIGH DENSITY PRESS OPERATOR Inhaled Oxygen Concentration - - Weight - - Height - - Body Mass Index - - documented in this encounter Patient Instructions Patient InstructionsLillian Aj CMA - 11/06/2016 10:52 AM CST Sutured Wound Care [facility]: [phone] [facility]: [phone] ? No strenuous activity for 48 hours. Resume moderate activity in 48 hours. No heavy exercising until you are seen for follow up in one week. ? Take Tylenol as needed for discomfort. ? Do not drink alcoholic beverages for 48 hours. ? Keep the pressure bandage in place for 24 hours. If the bandage becomes blood tinged or loose, reinforce it with gauze and tape. (Refer to the reverse side of this page for management of bleeding). ? Remove pressure bandage in 24 hours ? Leave the flat bandage in place until your follow up appointment. ? Keep the bandage dry. Wash around it carefully. ? If the tape becomes soiled or starts to come off, reinforce it with additional paper tape. ? Do not smoke for 3 weeks; smoking is detrimental to wound healing. ? It is normal to have swelling and bruising around the surgical site. The bruising will fade in approximately 10-14 days. Elevate the area to reduce swelling. ? Numbness, itchiness and sensitivity to temperature changes can occur after surgery and may take upto 18 months to normalize. POSSIBLE COMPLICATIONS BLEEDIN. Leave the bandage in place. 2. Use tightly rolled up gauze or a cloth to apply direct pressure over the bandage for 20 minutes. 3. Reapply pressure for an additional 20 minutes if necessary 4. Call the office or go to the nearest emergency room if pressure fails to stop the bleeding. 5. Use additional gauze and tape to maintain pressure once the bleeding has stopped. PAIN: 1. Post operative pain should slowly get better, never worse. 2. A severe increase in pain may indicate a problem. Call the office if this occurs. In case of emergency phone:Dr White [phone] DENSITY PRESS OPERATOR documented in this encounter Progress Notes Jon White MD - 11/06/2016 10:51 AM CST Speedy Hendricks is a 76 year old year old male patient here today in consultation for basal cell on nose by Boby Dermatolgoy. Patient states this has been present for 2 years. Location nose. Patient reports the following symptoms: bleeding . Patient reports the following previous treatments none. Patient reports the following modifying factors none. Associated symptoms: none. Patient has no other skin complaints today. Remainder of the HPI, Meds, PMH, Allergies, FH, and SH was reviewed in chart. Pertinent Hx: Basal cell carcinoma Past Medical History Diagnosis Date ??? Hypertension ??? Arthritis neck ??? Chronic pain lumbar back ??? 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 Basal cell carcinoma Past Surgical History Procedure Laterality Date ??? Back surgery lumbar fusion x2 ??? Thoracic surgery left lung surg decortifcation ??? Orthopedic surgery left foot surg ??? Orthopedic surgery cervical fusion x2 ??? Ent surgery tonsils ??? Appendectomy ??? Zachary teeth[ ??? Remove hardware foot 09/30/2012 Procedure: REMOVE HARDWARE FOOT; hardware removel left foot; Surgeon: Sal Chaparro DPM; Location: [facility] OR ??? Excise toenail(s) 09/30/2012 Procedure: EXCISE TOENAIL(S);; Surgeon: Sal Chaparro DPM; Location: [facility] OR History reviewed. No pertinent family history. Social History Social History ??? Marital Status: Spouse Name: N/A ??? Number of Children: N/A ??? Years of Education: N/A Occupational History ??? Not on file. Social History Main Topics ??? Smoking status: Former Smoker ??? Smokeless tobacco: Not on file Comment: quit 1984 ??? Alcohol Use: Yes Comment: 10 per week ??? Drug Use: No ??? Sexual Activity: Not on file Other Topics Concern ??? Not on file Social History Narrative Outpatient Encounter Prescriptions as of 11/06/2016 Medication Sig Dispense Refill ??? HYDROcodone-acetaminophen 5-325 MG per tablet Take 1 tablet by mouth every 6 hours as needed forpain. 30 tablet 0 ??? sulfamethoxazole-trimethoprim (BACTRIM DS,SEPTRA DS) 800-160 MG per tablet Take 1 tablet by mouth 2 times daily. 20 tablet 0 ??? HYDROcodone-acetaminophen 5-325 MG per tablet Take 1 tablet by mouth every 6 hours as needed forpain. 30 tablet 0 ??? HYDROcodone-acetaminophen 5-325 MG per tablet Take 1-2 tablets by mouth every 4 hours as needed for other (Moderate to Severe Pain). 30 tablet 0 ??? acetaminophen-codeine (TYLENOL/CODEINE #3) 300-30 MG per tablet Take 1-2 tablets by mouth every 4 hours as needed. ??? fluocinolone (SYNALAR) 0.01 % external solution Apply topically daily as needed. ??? METOPROLOL TARTRATE PO Take 50 mg by mouth 2 times daily. ??? MISOPROSTOL PO Take 200 mcg by mouth 2 times daily. ??? multivitamin, therapeutic with minerals (MULTI-VITAMIN) TABS Take 1 tablet by mouth daily. ??? SIMVASTATIN PO Take 80 mg by mouth At Bedtime. ??? terazosin (HYTRIN) 2 MG capsule Take by mouth At Bedtime. ??? TOLTERODINE TARTRATE PO Take 4 mg by mouth daily. Extended release (every 24hrs) ??? acetaminophen (TYLENOL ARTHRITIS PAIN) 650 MG CR tablet Take 650 mg by mouth every 8 hours as needed. No facility-administered encounter medications on file as of 11/06/2016. Review Of Systems Skin: As above Eyes: negative Ears/Nose/Throat: negative Respiratory: No shortness of breath, dyspnea on exertion, cough, or hemoptysis Cardiovascular: negative Gastrointestinal: negative Genitourinary: negative Musculoskeletal: negative Neurologic: negative Psychiatric: negative Hematologic/Lymphatic/Immunologic: negative Endocrine: negative O: NAD, WDWN, Alert & Oriented, Mood & Affect wnl, Vitals stable Here today daughter BP 203/105 mmHg Pulse 64 SpO2 96% General appearance milla ii mcdonnell Vitals stable Alert, oriented and in no acute distress Following lymph nodes palpated: Occipital, Cervical, Supraclavicular nolad Stuck on papules and brown macules on trunk and ext Red papules on trunk and ext Nasal bridge 1cm red macule The remainder of the full exam was [...] Head and Neck Lymphadenopathy Neuro/Psych: Orientation:Normal; Mood/Affect:Normal A/P: 1. Basal cell carcinoma nose 2. Seborrheic keratosis, lentigo, angioma BENIGN LESIONS DISCUSSED WITH PATIENT: I discussed [...] Symptoms of skin cancer discussed with patient. ABCDEs of melanoma reviewed with patient. Patient encouraged to perform monthly [...] with patient Return to clinic 6 months PROCEDURE NOTE Nasal bridge Basal cell carcinoma MOHS: Location After PGACAC discussed with patient, decision for Mohs surgery was made. Indication for Mohs was Location. Patient confirmed the site with Dr. White. After anesthesia with LEC, the tumor was excised using standard Mohs technique in 1 stages(s). CLEAR MARGINS OBTAINED and Final defect size was 1.4 cm. REPAIR RHOMBIC: Because of the size and full-thickness nature of the defect, and in order to maintain form and function while avoiding distortion of the nearby nasal tip and ala, a rhombic transposition flap was planned. After anesthesia and prep, the rhombic flap was carefully incised superior to thedefect; Burow's triangle was excised laterally, just superior to the alar groove. The flap was raised and the wound edges were all undermined in the subcutaneous plane (above the nasalis muscle). Afterhemostasis, the flap was transposed into the defect and sutured in a layered fashion using Vicryl and Fast Absorbing Plain Gut sutures. Postoperative size was 3.4 x 3.7 cm. EBL minimal; complications none; wound care routine. The patient was discharged in good condition and will return in one week forwound evaluation. DENSITY PRESS OPERATOR documented in this encounter Nursing Notes Farzana Harris CMA - 11/06/2016 10:52 AM CST Surgical Office Location: [facility] [address] [place] [address] DENSITY PRESS OPERATOR iLllian Aj CMA - 11/06/2016 10:06 AM CST Initial BP 203/105 mmHg Pulse 64 SpO2 96% Estimated body mass index is 32.10 kg/(m^2) as calculated from the following: Height as of 10/22/12: 1.702 m (5' 7). Weight as of 10/22/12: 92.987 kg (205 lb). . DENSITY PRESS OPERATOR documented in this encounter Plan of Treatment Not on filedocumented as of this encounter Procedures Procedure Name Priority Date/Time Associated Diagnosis Comme nts HC MOHS Routine 11/06/2016 10:51 AM Basal cell carcinoma of HEAD/NCK/HND/FT/GEN HIGH DENSITY PRESS OPERATOR nose 1ST STAGE UP T0 5 BLOCKS HC ADJ TISSUE XFER Routine 11/06/2016 10:51 AM Basal cell carc inoma of LID/NOS/EAR/LIP HIGH DENSITY PRESS OPERATOR nose 10.1-30 CM documented in this encounter Visit Diagnoses Diagnosis Basal cell carcinoma of nose - Primary Basal cell carcinoma of skin of other an d unspecified parts of face Lentigo Other dyschromia SK (seborrheic keratosis) Other seborrheic keratosis Angioma Hemangioma of unspecified site documented in this encounter Care Teams Hvac R Tech Relationship Specialty Start Date End Date Primary Dipak Kasper MD PCP - General 09/21/1204/18 documented as of this encounter
--- OUTSIDE RECORDS SUMMARY | 2022-05-28 05:06 | XMS_ITS | Encounter Summary ---
:1940 Author Organization [facility] Address [address] [place] [address] Care Team Providers Name Role Phone Primary Dr, Unknown MD Primary Care Provider Unavailable Reason for Visit Reason Onset Date Comments Call To Schedule Appointment 10/08/2012 Encounter Details Date Type Department Care Team Description 10/08/2012 Telephone [facility] Sal Engel, Call To Schedule [address] [employer] [place] [phone] 10[address] [facility] [phone] [facility] [address] [place], [place] [address] (Wo rk) Social History Tobacco Use Types [...] this encounter Miscellaneous Notes Telephone Encounter - Marianne Kim RN - 10/08/2012 10:51 AM CST Appt. Is scheduled for 10/22/12. Marianne Kim RN ING CONSULTANT Telephone Encounter - Sal Chaparro DPM - 10/08/2012 10:28 AM WEDDING CONSULTANT Marianne, Would recommend F/U appt either Dr. Nesbitt or myself in 2-3 wks. ING CONSULTANT Telephone Encounter - Brittany Phan - 10/08/2012 10:08 AM CST Pt no showed appt today and you are off next week do you want him to f/u with another provider or see you the following week? ING CONSULTANT Telephone Encounter - Nelida Davalos - 10/08/2012 7:53 AM CST Patient was told to schedule an appointment two weeks after operation which would be on ThursdayOctober 22. Dr. Chaparro stated he would like to see patient exactly two weeks after operation and to fit him into the schedule. Please contact patient to schedule appointment. Thank you, Nelida Lopez Central Scheduling ING CONSULTANT documented in this encounter Plan of Treatment Not on filedocumented as of this encounter Visit Diagnoses Not on filedocumented in this encounter Care Teams Optical Technician Relationship Specialty Start Date End Date Primary Dipak Kasper MD PCP - General 09/21/1204/18 documented as of this encounter
--- OUTSIDE RECORDS SUMMARY | 2022-05-28 05:06 | XMS_ITS | Encounter Summary ---
:1940 Author Organization [facility] Address [address] [place] [address] Care Team Providers Name Role Phone Primary Dr, Unknown MD Primary Care Provider Unavailable Reason for Visit Auth/Cert - Closed Specialty Diagnoses / Procedures Referred By Contact Refer red To Contact Surgery Diagnoses painful internal fixation left foot Rh Periop Services Procedures REMOVE HARDWARE FOOT [address] [place], [place] [address] Fax: Referral ID Status Reason Start Date Expiration Date Visits Requ ested Visits Authorized [id number] Closed 1 1 Encounter Details Date Type Department Care Team Description 09/30/2012 Surgery [facility] Daniel Trujillo har dware removel left [facility] DPM foot [address] [place] [facility] [place] [phone] [place] [address] (Wo rk) Surgery Details Date/Time Status Location OR Service Patient Case Class Case Tr auma Class Type Case? 09/30/12 11:30 Posted OR OR 04 Podiatry Same Day AM Surgery Panel 1 Procedure LRB Anes Op Region Wound Class Commen ts hardware removel Left Monitor Anesthesia Foot I-Clean hardware removel left foot Care left foot EXCISION, TOENAIL Right Monitor Anesthesia Toe I-Clean Care Surgeon Surgeon Role Service Panel Daniel Trujillo, ADALID Primary Podiatry 1 Special Needs # Hx MRSA documented in this encounter Social History Tobacco [...] Sign Reading Time Taken Comments Blood Pressure 137/81 09/30/2012 10:30 AM [facility] Pulse - - Temperature 35.9 ??C (96.6 ??F) 09/30/2012 10:24 AM [facility] Respiratory Rate 20 09/30/2012 10:24 AM [facility] Oxygen Saturation 98% 09/30/2012 10:24 AM [facility] Inhaled Oxygen Concentration - - Weight 93 kg (205 lb) 09/30/2012 10:24 AM [facility] Height 170.2 cm (5' 7) 09/30/2012 10:24 AM [facility] Body Mass Index 32.11 09/30/2012 10:24 AM [facility] documented in this encounter Discharge Instructions Discharge [...] DISCOMFORT OR ANY QUESTIONS. SURGEON'S OFFICE: DR. DANIEL TRUJILLO M.D. CLINIC PHONE NUMBER: [phone]. [facility] documented in this encounter Medications at Time [...] documented as of this encounter H&P Notes Daniel Trujillo DPM - 09/23/2012 4:09 PM CST [facility] documented in this encounter Nursing Notes Iwona Ruiz RN - 09/30/2012 12:33 PM CST First Panel started at 1210 and ended at 1230. Second panel started at 1230 and ended at 1237. Jen Ruiz RN [facility] Iwona Ruiz RN - 09/30/2012 12:22 PM CST Patient did not want his hardware that was removed from procedure on 09/30/[address] Trujillo. Jen Ruiz RN [facility] documented in this encounter OR Notes OR Anesthesia - Daniel Trujillo DPM - 10/01/2012 9:43 AM CST [facility] documented in this encounter Miscellaneous Notes Op Note - Daniel Trujillo DPM - 10/01/2012 8:45 AM CST [...] all vital signs and vascular status intact. DANIEL TRUJILLO DPM MT: [id number] Name: ELDA HENDRICKS Account: [id number] : 1940 Procedure Date: 09/30/2012 Document: [id number] cc: Ramiro Walker MD [facility] Brief Op Note - Daniel Trujillo DPM - 09/30/2012 1:01 PM CST [facility] Podiatry/Foot and Ankle Surgery Brief Operative Note Pre-operative diagnosis: Painful Internal Fixation left foot Painful recurrence of toenail right great toe Post-operative diagnosis same Procedure: Procedure(s): Hardware Removal left foot - Deep Surgical matrixectomy right great toe Surgeon: DANIEL TRUJILLO DPM Assistants(s): Anesthesia: MAC Estimated blood loss: 5 cc [facility] documented in this encounter Plan of Treatment Not on filedocumented as of this encounter Procedures Procedure Name Priority Date/Time Associated Diagnosis Comme nts XR FOOT PORT LEFT 3 Routine 09/30/2012 1:44 PM Re sults for this VIEWS [facility] procedure are i n the results section. EXCISION, TOENAIL 09/30/2012 11:41 AM painful internal [facility] fixation left foot Special Needs 5'# Hx MRSA REMOVAL, HARDWARE, FOOT 09/30/2012 11:41 AM [facility] painfu l internal fixation left foot Special Needs 5'# Hx MRSA EKG 12-LEAD, TRACING ONLY Routine 09/30/2012 11:38 AM [facility] Results for this procedure are in the resu lts section. HIM ECG SCAN Routine 09/30/2012 documented in this encounter Results X-ray LEFT Foot 3 vw port (09/30/2012 1:44 PM [facility]) Anatomical Region Laterality Modality Left Foot Left Other Specimen (Source) Anatomical Collection Method Collection Time Re ceived Time Location / / Volume Laterality 09/30/2012 1:44 PM [facility] Impressions 10/01/2012 10:47 AM [facility] IMPRESSION: Postoperative and degenerative change. No acute abnormality. ODILON RANDOLPH MD Narrative 10/01/2012 10:47 AM [facility] LEFT FOOT THREE OR MORE VIEWS PORTABLE [...] change. No acute abnormality. ODILON RANDOLPH MD Daniel Trujillo DPM IMG DIAGNOSTIC IMAGING ORDER BRAYDEN EKG 12-lead, tracing only (09/30/2012 11:38 AM [facility]) Component Value Ref Range Test Analysis Performed Pathologis t Method Time At Signature Ventricular Rate 64 BPM RADIOLOGY RESULTS Atrial Rate 64 BPM RADIOLOGY RESULTS WA Interval 154 ms RADIOLOGY RESULTS QRS Duration 80 ms RADIOLOGY RESULTS QT 410 ms RADIOLOGY RESULTS QTc 422 ms RADIOLOGY RESULTS P South English -1 degrees RADIOLOGY RESULTS R AXIS -9 degrees RADIOLOGY RESULTS T South English -7 degrees RADIOLOGY RESULTS Interpretation Sinus rhythm [...] / / Volume Laterality 09/30/2012 11:38 AM [facility] Doctor Unknown ECG ORDERABLES Performing Organization Address City/State/ZIP Code Phon e Number RADIOLOGY RESULTS ECG - HIM ECG Scan (09/30/2012) Narrative This result has an attachment that is no t available. Daniel Trujlilo DPM ECG ORDERABLES documented in this encounter Visit Diagnoses Not on filedocumented in this encounter Administered Medications Inactive Administered Medications - up to 3 most recent administrations Medication Order MAR Action Action Date Dose Rate Site bupivacaine (MARCAINE) Given 09/30/2012 12:38 15 mLs Operative injection 0.5% (PF) PM [facility] Site/Surgical S ite PRN, Starting on Yesenia 09/30/12 at 1238, Intra-procedure fentaNYL (SUBLIMAZE) injection 25-50 mcg Given 09/30/2012 2:16 PM [facility] 50 mcg 25-50 mcg, Intravenous, EVERY 2 MIN PRN, other, acute pain, Starting on Yesenia 09/30/12 at 1251, MAX cumulative dose = 250 mcg. Use Fentanyl initially, as a short acting agent for acute pain control. If insufficient, or a longer acting agent is needed, begin Morphine or Hydromorphone if ordered., PACU Given 09/30/2012 1:33 PM [facility] 50 mcg HYDROcodone-acetaminophen 5-325 MG per Given 09/30/2012 2:16 PM [facility] 1 tablet tablet 1-2 tablet 1-2 tablet, Oral, ONCE, On Yes[place] 09/30/12 at 1330, For 1 dose, One time prior to discharge., Post-procedure lactated ringers infusion New Bag 09/30/2012 1:33 PM [facility] 1,000 mLs 100 mL/hr at 100 mL/hr, Intravenous, CONTINUOUS, Continue until IV catheter is weaned, PACU, Starting on Yesenia 09/30/12 at 1300, Until Yesenia 09/30/12 at 1723 lidocaine (PF) (XYLOCAINE) Given 09/30/2012 12:40 PM 4 mLs Operative Site/Surgical 1 % injection [facility] Site PRN, Starting on Yes[place] 09/30/12 at 1238, Intra-procedure sodium chloride 0.9% Given 09/30/2012 12:41 PM 100 mLs Operative Site/Surgical (bottle) irrigation [facility] Site PRN, Starting on Yes[place] 09/30/12 at 1241, Area to irrigate and instructions: ., Intra-procedure documented in this encounter Active and Recently Administered Medications Times are shown in [facility]. Scheduled Medication Order 09/28/2012 09/29/2012 09/30/2012 HYDROcodone-acetaminophen 5-325 MG per tablet 1-2 tablet (COMPLE KENAN) 1416 (Given - Provider: Nai Galarza, RN) 1-2 tablet, Oral, ONCE, Yesenia 09/30/12 at 1330, For 1 dose, One time prior to discharge., Post-procedure Continuous Medication Order 09/28/2012 09/29/2012 09/30/2012 lactated ringers infusion (CANCELED) 1333 (New Bag - Provider: Nai Galarza, RN) at 100 mL/hr, Intravenous, CONTINUOUS, C ontinue until IV catheter is weaned, PACU PRN Medication Order 09/28/2012 09/29/2012 09/30/2012 bupivacaine (MARCAINE) injection 0.5% (PF) (CANCELED) 1238 (Given - Provider: Daniel Trujillo DPM - Comment: 7.5mL of 1% Lidocaine mixed with 7.5mL of 0.5% BUPivicaine was injected for a total of 10mL prior to incision of Left foot.) PRN, Starting Yes[place] 09/30/12 at 1238, Intra-procedure clindamycin (CLEOCIN) IVPB 900 mg (CANCELED) 1152 (Given - Provider: Lety Guzman APRN KITCHENHAND) 900 mg, Intravenous, for 60 Minutes, EMIL [...] injection (CANCELED) 1238 (Canceled Entry - Provider: Daniel Trujillo DPM)1240 (Given - Provider: Daniel Trujillo DPM - Comment: Into Right great toe) PRN, Starting Yes[place] 09/30/12 at 1238, Intra-procedure sodium chloride 0.9% (bottle) irrigation (CANCELED) 1241 (Given - Provider: Daniel Trujillo DPM) PRN, Starting Yes[place] 09/30/12 at 1241, Area to irrigate and instructions: ., Intra-procedure documented in this encounter Care Teams Leak Detection Engineer Relationship Specialty Start Date End Date Primary Dipak Kasper MD PCP - General 09/21/1204/18 documented as of this encounter
--- OUTSIDE RECORDS SUMMARY | 2022-05-28 05:06 | XMS_ITS | Encounter Summary ---
:1940 Author Organization [facility] Address [address] [place] [address] Care Team Providers Name Role Phone Primary DrDipak MD Primary Care Provider Unavailable Celina Coley Primary Care Provider [facility] [place] Primary Care Provider [phone] Jon White MD Unavailable [phone] Ramiro Loco MD Unavailable Encounter Details Date Type Department Care Team Description 04/18/2014 [facility] Provider, [facility] Information Management [address] [facility] [address] [place] [address] Social History Tobacco Use Types Packs/Day Years [...] Comme nts EKG CARDIAC - HIM SCAN 04/27/2014 documented in this encounter Results EKG CARDIAC - HIM SCAN (04/27/2014) Narrative This result has an attachment that is no t available. Historical Provider ECG ORDERABLES documented in this encounter Visit Diagnoses Not on filedocumented in this encounter Additional Health Concerns Infection Onset Date Last Indicated Resolved Time MRSAComment: Positive 02/17/11 and 09/22/12 11/05/2018 019 Negatives 05/03/14 (HE), 12/01/14 (HE) documented as of this encounter Care Teams Adult Education Teacher Relationship Specialty Start Date End Date Primary Dipak Kasper MD PCP - General 09/21/1204/18 Celina Coley PCP - General Family Practice 05/05/17 05/11/[address] [address] Kehinde Portillo PCP - General 05/12/[address] [address] Jon White Assigned Surgical Provider 08/10/20 12/08/20 MD [place] [address] [place] [address] Ramiro Loco MD Assigned Heart and 08/10/20 05/11/21 [address] Vascular Provider [place]OD[place] [address] documented as of this encounter
--- OUTSIDE RECORDS SUMMARY | 2022-05-28 05:06 | XMS_ITS | Encounter Summary ---
:1940 Author Organization [place] Address [address] [place] [address] Care Team Providers Name Role Phone Unavailable Primary Care Provider Unavailable Reason for Visit Reason Comments Surgical Followup 02/06 left foot post op. Encounter Details Date Type Department Care Team Description 06/04/2011 Office Visit [facility] Sal Chaparro aftercare (Primary Dx); Clinic Yumiko Castellanos DPM [place] [address] [place] [phone] [place] [address] Social History Tobacco Use Types Packs/Day Years Used Date Never Assessed Sex Assigned at Date Recorded Not on file documented as of this encounter Progress Notes Sal Chaparro DPM - 06/11/2011 7:55 PM CDT Subjective: Patient is seen today 4 months post op from a 1. Hammertoe [...] no other sign of osseous pathology. Assessment: 4 months post op Plan: Pt may shower and no foot soaks. Continue with ice and compression. Limit activities with partial weight bearing in a regular shoe on lt. Clinically pt continues to note clinical improvement and the non-union site is almost completely healed. F/U 4-6 wks and would wait on heavy impact activities. documented in this encounter Nursing Notes 06/04/2011 8:45 AM CDT >> MELL Maria Jun 04, 2011 9:26 AM Patient presents with: Surgical Followup - 02/06 left foot post op. Initial There were no vitals taken for this visit. Mell Cain CMA documented in this encounter Plan of Treatment Not on filedocumented as of this encounter Procedures Procedure Name Priority Date/Time Associated Diagnosis Comme nts XR FOOT LEFT G/E 3 Routine 06/04/2011 9:28 AM Surgery aftercar e Results for this VIEWS CDT procedure are i n the results section. documented in this encounter Results X-ray lt Foot G/E 3 vws* (06/04/2011 9:28 AM CDT) Anatomical Region Laterality Modality Foot, Ankle Left Other Specimen (Source) Anatomical Collection Method Collection Time Re ceived Time Location / / Volume Laterality 06/04/2011 9:28 AM CDT Impressions 06/04/2011 1:56 PM CDT LEFT FOOT, THREE VIEWS ??Jun 04, 2011 9: 28 AM HISTORY: Surgery followup. COMPARISON: 04/30/2011. FINDINGS: Distal second metatarsal shaft osteotomy or fracture internally fixed with a dorsal plate/scr ew fixation device. The osteotomy or fracture line remains visib le but there does appear to be bony union along the lateral surface. Th ere is no change in position or alignment in the interim. Sal Chaparro DPM IMG DIAGNOSTIC IMAGING ORDER BRAYDEN documented in this encounter Visit Diagnoses Diagnosis Surgery aftercare - Primary Other specified aftercare following surg anai [place] documented in this encounter
--- OUTSIDE RECORDS SUMMARY | 2022-05-28 05:06 | XMS_ITS | Encounter Summary ---
:1940 Author Organization [place] Address [address] [place] [address] Care Team Providers Name Role Phone Unavailable Primary Care Provider Unavailable Reason for Visit Reason Comments Surgical Followup follow up to left foot surge ry. Encounter Details Date Type Department Care Team Description 07/16/2011 Office Visit [facility] Sal Chaparro Foot p ain (Primary Dx); Clinic Yumiko Castellanos DPM [place] [address] [place] [phone] [place] [address] Social History Tobacco Use Types Packs/Day Years Used Date Never Assessed Sex Assigned at Date Recorded Not on file documented as of this encounter Progress Notes Sal Chaparro DPM - 07/16/2011 9:26 AM CDT Subjective: Patient is seen today 5 months post op from a 1. Hammertoe [...] no other sign of osseous pathology. Assessment: 5 months post op Plan: Pt may shower and no foot soaks. Continue with ice and compression. Limit activities with weight bearing in a regular shoe on lt. Clinically pt continues to note clinical improvement and the non-union site is now completely healed. F/U once pt returns from [place]. documented in this encounter Nursing Notes 07/16/2011 9:00 AM CDT >> MELL MAGANA Wed Jul 16, 2011 8:51 AM Patient presents with: Surgical Followup - follow up to left foot surgery. Initial There were no vitals taken for this visit. Mell Magana CMA documented in this encounter Plan of Treatment Not on filedocumented as of this encounter Procedures Procedure Name Priority Date/Time Associated Diagnosis Comme nts XR FOOT LEFT G/E 3 Routine 07/16/2011 9:00 AM Foot pain Res ults for this VIEWS CDT procedure are i n the results section. documented in this encounter Results X-ray lt Foot G/E 3 vws* (07/16/2011 9:00 AM CDT) Anatomical Region Laterality Modality Foot, Ankle Left Other Specimen (Source) Anatomical Collection Method Collection Time Re ceived Time Location / / Volume Laterality 07/16/2011 9:00 AM CDT Impressions 07/16/2011 4:55 PM CDT THREE VIEWS OF LEFT FOOT COMPLETE WEIGHT BEARING Jul 16, 2011 9:00 AM HISTORY: Surgical follow-up. COMPARISON: 06/04/2011. FINDINGS: Again demonstrated is compress ion plate dorsally affixing distal shaft fracture of the second meta tarsal. Alignment remains unchanged. Moderate amount of bridging c allus is visualized more notably laterally with healing still inc omplete. Sal Chaparro DPM IMG DIAGNOSTIC IMAGING ORDER BRAYDEN documented in this encounter Visit Diagnoses Diagnosis Foot pain - Primary Pain in limb [place] documented in this encounter
--- OUTSIDE RECORDS SUMMARY | 2022-05-28 05:06 | XMS_ITS | Encounter Summary ---
:1940 Author Organization [place] Address [address] [place] [address] Care Team Providers Name Role Phone Primary Dr, Unknown MD Primary Care Provider Unavailable Reason for Visit Reason Comments Dressing Change Encounter Details Date Type Department Care Team Description 11/18/2016 Allied Health/Nurse [facility] Dressing Change Visit [place] [phone] Social History Tobacco Use Types Packs/Day Years [...] as of this encounter Patient Instructions Patient InstructionsMcLillian Aquino CMA - 11/18/2016 9:59 AM CST WOUND CARE INSTRUCTIONS for ONE WEEK AFTER SURGERY 1) Leave flat bandage on your skin for one week after today???s bandage change. 2) In one week when you remove the bandage, you may resume your regular skin care routine, includingwashing with mild soap and water, applying moisturizer, make-up and sunscreen. 3) If there are any open or bleeding areas at the incision/graft site you should begin to cover the area with a bandage daily as follows: 1) Clean and dry the area with plain tap water using a Q-tip or sterile gauze pad. 2) Apply Polysporin or Bacitracin ointment to the open area. 3) Cover the wound with a band-aid or a sterile non-stick gauze pad and micropore paper tape. *Once the bandages are removed, the scar will be red and firm (especially in the lip/chin area). This is normal and will fade in time. It might take 6-12 months for this to happen. *Massaging the area will help the scar soften and fade quicker. Begin to massage the area one month after the bandages have been removed. To massage apply pressure directly and firmly over the scar with the fingertips and move in a circular motion. Massage the area for a few minutes several times a day. Continue to massage the site for several months. *Approximately 6-8 weeks after surgery it is not uncommon to see the formation of ???tender pimple-like?? bump along the scar. This is normal. As the scar continues to mature and the stitches underneath the skin begin to dissolve, this might occur. Do not pick or squeeze, this will resolve on it???s own. Should one break open producing a small amount of drainage, apply Polysporin or Bacitracin ointment a few times a day until the wound is completely healed. *Numbness in the surgical area is expected. It might take 12-18 months for the feeling to return to normal. During this time sensations of itchiness, tingling and occasional sharp pains might be noted.These feelings are normal and will subside once the nerves have completely healed. IN CASE OF EMERGENCY: Dr White [phone] If you were seen in [place] call: [phone] If you were seen in [place] call: [phone] [employer] documented in this encounter Progress Notes Lillian Aj CMA - 11/18/2016 10:07 AM CST Pt returned to clinic for post surgery 1 week follow up bandage change. Pt has no complaints, deniespain. Bandage removed from nose, area cleansed with normal saline. Site is healing and wound edges approximating well. Reapplied new steri strips and paper tape. Advised to watch for signs/sx of infection; spreading redness, drainage, odor, fever. Call or reportpromptly to clinic. Pt given written instructions and informed to rtc as needed. Patient verbalized understanding. .Marva Aj CMA [employer] documented in this encounter Plan of Treatment Not on filedocumented as of this encounter Visit Diagnoses Diagnosis Encounter for change or removal of surgi hannah wound dressing - Primary documented in this encounter Care Teams Manufacturing Job Titles Relationship Specialty Start Date End Date Primary Dipak Kasper, PCP - General 09/21/1204/18 documented as of this encounter
--- OUTSIDE RECORDS SUMMARY | 2022-05-28 05:07 | XMS_ITS | Encounter Summary ---
:1940 Author Organization [place] Address [address] [place] [address] Care Team Providers Name Role Phone Unavailable Primary Care Provider Unavailable Reason for Visit Reason Onset Date Comments Schedule Surgery 01/30/2011 Encounter Details Date Type Department Care Team Description 01/30/2011 Telephone [facility] Sal Love, Schedule [facility] [address] [facility] [place] [phone] [address] [facility] E [phone] [place] [address] [place], [place] [address] (Wo rk) Social History Tobacco Use Types Packs/Day Years Used Date Never Assessed Sex Assigned at Date Recorded Not on file documented as of this encounter Miscellaneous Notes Telephone Encounter - Kandy Cain - 02/04/2011 1:02 PM CDT Packet mailed. Kandy Cain CMA Telephone Encounter - Kandy Cain - 01/31/2011 12:49 PM CDT Added to [place] Telephone Encounter - Kandy Cain - 01/31/2011 10:34 AM CDT Surgery scheduled. Left with details. Date/Time: 02/06/2011 @ 10:50 am Hospital: [facility] Anesthesia: POP Surgeon: Sal Chaparro D.P.M. Preop:Unknown Consent: ORIF w/ possible bone grafting 2nd metatarsal lt foot Hammertoe correction 2nd toe lt foot Surgeon Procedure Time: 1 hour Anesthesia: POPL Location: [place] Pre-Operative Medications: Clindamycin 600 mg IV pre-op Heparin 5000 Units SQ pre-op Special Instrumentation: Sagittal saw, Synthes Mini Locking Plates, Mini C-arm Electronically signed by Sal ChaparroDPM Advised NPO after midnight on the day before surgery. Reminded patient to have someone drive them home. Advised to check in 2 hours before scheduled time of surgery. Information packet given. Advised patient to schedule a post-op check within one week. Kandy Cain CMA Telephone Encounter - Sal Chaparro - 01/30/2011 4:52 PM CDT Orders in EPIC Telephone Encounter - Kandy Cain - 01/30/2011 10:[address] Chaparro, could you please provide surgery details for pt? February 06 or [phone] or [phone] Thank you, Kandy Cain CMA documented in this encounter Plan of Treatment Not on filedocumented as of this encounter Visit Diagnoses Not on filedocumented in this encounter
--- OUTSIDE RECORDS SUMMARY | 2022-05-28 05:07 | XMS_ITS | Encounter Summary ---
:1940 Author Organization [place] Address [facility] [place] [address] Care Team Providers Name Role Phone Unavailable Primary Care Provider Unavailable Reason for Visit Reason Comments Musculoskeletal Problem pt states he broke his left great toe and 2nd toe. He is still having trouble/pain in his 2nd toe. Sx since September. Encounter Details Date Type Department Care Team Description 01/29/2011 Office Visit [facility] Sal Chaparro Fractu re, nonunion (Primary Dx); Clinic [place] F, DPM Other hammer toe (acquired); [address] [place] [address] Pain in so ft tissues of limb [place] [address] [facility] [address] [phone] [place], [place] [id number] Social History Tobacco Use Types Packs/Day Years Used Date Never Assessed Sex Assigned at Date Recorded Not on file documented as of this encounter Progress Notes Sal Chaaprro - 01/30/2011 4:52 PM CDT Subjective: Pt is seen today as a new pt self referral with the c/c [facility]. [facility] type injury w/ a skid checker loader. Pt has been treated in CAM boot immobilization andwound cares for a superficial abrasion to the top of his foot. Pt continues to have pain w/ ambulation and shoe wear. The concern is for a non-union of a metatarsal fracture. Here today w/ his and daughter. PMH, meds, all, PSH, PFH, and soc hx were reviewed Soc: [employer] REVIEW OF SYSTEMS: CONSTITUTIONAL:NEGATIVE for fever, chills, change in weight INTEGUMENTARY/SKIN: NEGATIVE for worrisome rashes, moles or lesions MUSCULOSKELETAL:See HPI above NEURO: NEGATIVE for weakness, dizziness or paresthesias Objective: Pulses are palpable +2/4 DP & PT bilateral, sensation to light touch is intact. Limited muscle strength and ROM to all areas tested on the left foot. Pain upon palpation to the distal 2nd metatarsal on the left foot. Edema and well healed abrasion noted the area. 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 Pt has failed conservative attempts at care and is requesting surgical correction as an out-pt. Risk, benefits, and alternatives to care were discussed. Discussed risks and benefits of the procedure with the patient in detail. Potential complications include, but are not limited to continued postoperative pain, swelling, infection, ulceration, numbness, overcorrection, undercorrection, delayed healing, non-union, RSDS, DVT/PE, anesthesia risks, or the possibility of further surgical correction in the future. Pt. understands the nature of the procedure and understands that there are no guarantees. Pt. has informed consent. 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 He is still having trouble/pain in his 2nd toe. Sx since September. Initial There were no vitals taken for this visit. Mell Magana CMA documented in this encounter Plan of Treatment Not on filedocumented as of this encounter Procedures Procedure Name Priority Date/Time Associated Diagnosis Comme nts XR FOOT LEFT G/E 3 Routine 01/29/2011 10:33 AM Fracture, nonun ion Results for this VIEWS CDT procedure are i n the results section. documented in this encounter Results X-ray lt Foot G/E 3 vws* (01/29/2011 10:33 AM CDT) Anatomical Region Laterality Modality Foot, Ankle Left Other Specimen (Source) Anatomical Collection Method Collection Time Re ceived Time Location / / Volume Laterality 01/29/2011 10:33 AM CDT Impressions 01/29/2011 1:16 PM CDT LEFT FOOT, THREE VIEWS Jan 29, 2011 10:3 3:00 AM ?? HISTORY: Fracture, nonunion. COMPARISON: None. FINDINGS: There is an oblique fracture o f the second metatarsal neck with bone callus, but the fracture line remains visible. The fracture is essentially nondisplaced. There is mi ld to moderate arthritic narrowing MP joint great toe, probably d egenerative. Moderate degenerative change at the first tarsome tatarsal articulation. Small plantar calcaneal spur. IMPRESSION: Second metatarsal neck fract ure with bone callus, but the fracture line remains visible. Sal Chaparro DPM IMG DIAGNOSTIC IMAGING ORDER BRAYDEN documented in this encounter Visit Diagnoses Diagnosis Fracture, nonunion - Primary Nonunion of fracture Other hammer toe (acquired) Pain in limb documented in this encounter
--- OUTSIDE RECORDS SUMMARY | 2022-05-28 05:07 | XMS_ITS | Encounter Summary ---
:1940 Author Organization [place] Address [address] [place] [address] Care Team Providers Name Role Phone Unavailable Primary Care Provider Unavailable Reason for Visit Reason Comments Surgical Followup 02/06 left foot post op. Encounter Details Date Type Department Care Team Description 02/14/2011 Office Visit [facility] Sal Chaparro Afterca re following Yariel Castellanos DPM surgery of the [facility] [address] musculoskeletal system, [place] [address] E NEC (Primary Dx) [phone] [facility] 100 [place], [place] [address] Social History Tobacco Use Types Packs/Day Years Used Date Never Assessed Sex Assigned at Date Recorded Not on file documented as of this encounter Progress Notes Sal Chaparro DPM - 02/16/2011 2:11 PM CDT Subjective: Patient is seen today 1 wk post op from a 1. Hammertoe correction, second toe, left foot. 2. Nonunion takedown, debridement and bone grafting second metatarsal, left foot. 3. Surgical matrixectomy, right great toenail. . Patient is doing well, admits compliance, denies fevers, chills, nausea or vomiting. Continues to use CAM boot on lt and post-op shoe on rt. Here today w/ family members. Objective: Dressing is dry, upon removal wound is well coapted, sutures are intact. Pulses are palpable, sensation to light touch is intact. Patient has slightly limited muscle strength and ROM. Minimal signs of edema, no sign of erythema, infection, ulceration, or drainage on the lt. Mild proximal erythema noted to rt great toenail bed. Assessment: 1 wk post op Plan: Sterile redress on the b/l and wound culture on rt great toe. Instructions to keep dressing onand dry. Continue with ice and compression. Limit activities with partial weight bearing in a CAM boot on lt and post-op shoe on rt. Call with questions or concerns and follow-up in 1 wk for nurse onlysuture removal and 3 wks for re-check. Empirical abx for rt great toe. documented in this encounter Nursing Notes 02/14/2011 3:15 PM CDT >> MELL MAGANA ThuFeb 14, 2011 3:04 PM Patient presents with: Surgical Followup - 02/06 left foot post op. Initial There were no vitals taken for this visit. Mell Magana CMA documented in this encounter Plan of Treatment Not on filedocumented as of this encounter Procedures Procedure Name Priority Date/Time Associated Diagnosis Comme nts WOUND CULTURE Routine 02/14/2011 4:00 PM Aftercare following R esults for this AEROBIC BACTERIAL CDT surgery of the procedur e are in musculoskeletal system, the results NEC section. documented in this encounter Results Wound culture (02/14/2011 4:00 PM CDT) Component Value Ref Test Analysis Performed At [facility] Range Method Time Signature Specimen Toe [place] Description [facility] Culture Micro Heavy growth [place] Methicillin [facility] Staphylococcus aureus (MRSA) Micro Report FINAL 02/17/2011 [place] Status [facility] Specimen Anatomical Collection Method Collection Time Receive d Time (Source) Location / / Volume Laterality Specimen from 02/14/2011 4:00 PM 02/15/20 11 5:02 wound (specimen) CDT PM CDT Organism Antibiotic Method Susceptibility Heavy growth methicillin Ciprofloxacin >=8 Res istant resistant staphylococcus aureus (mrsa) ([place]) Heavy growth methicillin Clindamycin >=8 Res istant resistant staphylococcus aureus (mrsa) ([place]) Heavy growth methicillin Erythromycin >=8 Res istant resistant staphylococcus aureus (mrsa) ([place]) Heavy growth methicillin Gentamicin <=0.5 S usceptible resistant staphylococcus aureus (mrsa) ([place]) Heavy growth methicillin Levofloxacin >=8 Res istant resistant staphylococcus aureus (mrsa) ([place]) Heavy growth methicillin Oxacillin >=4 Res istant resistant staphylococcus aureus (mrsa) ([place]) Heavy growth methicillin Penicillin >=0.5 R esistant resistant staphylococcus aureus (mrsa) ([place]) Heavy growth methicillin Tetracycline <=1 Zoey ceptible resistant staphylococcus aureus (mrsa) ([place]) Heavy growth methicillin Trimethoprim/Sulfamethoxazol <=.5/9.5 Susceptible resistant staphylococcus e aureus (mrsa) ([place]) Heavy growth methicillin Vancomycin 1 Susce ptible resistant staphylococcus aureus (mrsa) ([place]) Sal Chaparro DPM LAB - MICRO GENERAL ORDERABL ES Performing Organization Address City/State/ZIP Code Phon e Number M [facility] [address] [place] [address] [facility] documented in this encounter Visit Diagnoses Diagnosis [facility]care [facility] [place] - Primary documented in this encounter
--- OUTSIDE RECORDS SUMMARY | 2022-05-28 05:07 | XMS_ITS | Encounter Summary ---
:1940 Author Organization [place] Address [address] [place] [address] Care Team Providers Name Role Phone Unavailable Primary Care Provider Unavailable Reason for Visit Reason Onset Date Comments Surgical Followup 02/08/2011 Encounter Details Date Type Department Care Team Description 02/08/2011 Telephone [facility] Sal Chaparro, Surgical Followup Vest DPM [address] [place] [phone] [facility] 100 [place], [place] [address] (Wo rk) Social History Tobacco Use Types Packs/Day Years Used Date Never Assessed Sex Assigned at Date Recorded Not on file documented as of this encounter Miscellaneous Notes Telephone Encounter - April Membreno - 02/12/2011 9:22 AM CDT Follow up visit scheduled with Dr. Chaparro on 02/14/11 @ 3:15. Telephone Encounter - Kiarar Tsai - 02/08/2011 12:28 PM CDT Patient was told by Dr. Chaparro to be seen one week after surgery (02/06/2011). Patient would likea call to schedule as no appointments are available. documented in this encounter Plan of Treatment Not on filedocumented as of this encounter Visit Diagnoses Not on filedocumented in this encounter
--- OUTSIDE RECORDS SUMMARY | 2022-05-28 05:07 | XMS_ITS | Encounter Summary ---
:1940 Author Organization [place] Address [address] [place] [address] Care Team Providers Name Role Phone Unavailable Primary Care Provider Unavailable Encounter Details Date Type Department Care Team Description 02/06/2011 Results [facility] Tiffanie meadows, Sal Castellanos, DPM Hospital Results [address] [place], [place] [address] (Wo rk) Social History Tobacco Use Types Packs/Day Years Used Date Never Assessed Sex Assigned at Date Recorded Not on file documented as of this encounter Plan of Treatment Not on filedocumented as of this encounter Procedures Procedure Name Priority Date/Time Associated Diagnosis Comme nts XR FOOT PORT LEFT 3 Routine 02/06/2011 1:12 PM Re sults for this VIEWS CDT procedure are i n the results section. documented in this encounter Results X-ray lt Foot 3 vw port (02/06/2011 1:12 PM CDT) Specimen (Source) Anatomical Collection Method Collection Time Re ceived Time Location / / Volume Laterality 02/06/2011 1:12 PM CDT Impressions RADIOLOGY RESULTS - 02/06/2011 2:37 PM C DT FOOT G/E 3VW PORTABLE LEFT ??Feb 06 1:12:00 PM HISTORY: ??Post operative. COMPARISON: ??01/29/2011. IMPRESSION: Sideplate with supporting sc rew across a distal second metatarsal osteotomy. A pin traverses th e phalanges of the second toe. Alignment appears satisfactory. Sal Chaparro DPM IMG DIAGNOSTIC IMAGING ORDER [place] Performing Organization Address City/State/ZIP Code Phon e Number RADIOLOGY RESULTS documented in this encounter Visit Diagnoses Not on filedocumented in this encounter
--- OUTSIDE RECORDS SUMMARY | 2022-05-28 05:07 | XMS_ITS | Encounter Summary ---
:1940 Author Organization [place] Address [address] [place] [address] Care Team Providers Name Role Phone Unavailable Primary Care Provider Unavailable Encounter Details Date Type Department Care Team Description 02/06/2011 Operative Report [facility] Daniel Trujillo, ([employer]) [facility] DPM Results [address] [place], [place] [address] (Wo rk) Social History Tobacco Use Types Packs/Day Years Used Date Never Assessed Sex Assigned at Date Recorded Not on file documented as of this encounter Progress Notes Daniel Trujillo - 02/11/2011 1:37 PM CDT FINAL PREOPERATIVE DIAGNOSES: 1. Second metatarsal fracture nonunion, left foot. 2. Second toe hammertoe deformity, left foot. 3. Onychocryptosis with onychomycosis of right great toenail. POSTOPERATIVE DIAGNOSIS: 1. Second metatarsal fracture nonunion with malunion, left foot. 2. Second toe hammertoe deformity, left foot. 3. Onychocryptosis with onychomycosis of right great toenail. PROCEDURES: 1. Hammertoe correction, second toe, left foot. 2. Nonunion takedown, debridement and bone grafting second metatarsal, left foot. 3. Surgical matrixectomy, right great toenail. ANESTHESIA: General endotracheal anesthesia with popliteal block on the left hand side, local digital block on the right hand side. ESTIMATED BLOOD LOSS: Approximately 20 cc. MEDICATIONS: The patient received antibiotics IV preoperatively as well as heparin 5000 units subcutaneous preoperatively. INDICATIONS: Speedy Mcduffie is a 70-year-old male who suffered a severe crush injury to his left footabout 4-5 months ago. The patient has been treated conservatively yet the second metatarsal has not healed and continued to cause a tremendous amount of pain. The risks, benefits and alternatives to therapy were discussed. The patient is requesting operative management at this time. The preoperative and postoperative course was discussed with the patient. I did discuss potential complications and convalescence post surgery. Potential complications include, but are not limited to continued postoperative pain, swelling, numbness, infection, overcorrection, under-correction, recurrence, delayed healing, delayed union, nonunion, hardware breakage, anesthesia risks, RSDS, DVT/PE or the possible necessity for further surgical management in the future. The patient understands the nature of the procedureand understands that there are no guarantees with this. The patient has informed consent. DESCRIPTION OF PROCEDURE: The patient was brought into the operating room, placed on the OR table inthe supine position. He underwent a popliteal fossa block on the left hand side by Anesthesia in thepreinduction area. He was then placed under general endotracheal anesthesia by Anesthesia. A total of 5 cc of 0.5% Marcaine plain were then used in a digital block on the right great toe. Bilateral well padded ankle tourniquets were placed. Pause for the cause was performed. The left foot was then exsanguinated with an Esmarch, and tourniquet inflated to 250 mmHg. Attention was directed to the left foot, where standard linear incision was made over the second MTPJ. This was deepened down to extensorexpansion. Care was taken to retract all vital structures and hemostasis was obtained where necessary. Significant amount of fibrosis was identified because of the past injury yet there is no evidence of infection. A standard Z lengthening of the extensor tendon extensor expansion was performed with release of the medial and lateral collateral ligaments. Upon further inspection, the neck and head of the second metatarsal had been fractured yet as it has healed it has healed in a plantarward direction. The dorsal aspect of the hypertrophic nonunion was then taken down with a small rotating bur and then I was able to identify the overall position of the metatarsal head and it was therefore the decision to identify the nonunion site and actually with a through and through osteotomy takedown the nonunion/malunion and repositioned the metatarsal head. This was done in typical fashion. I was able thento slightly elevate the head and this allowed the toe itself to sit in a little bit better position or alignment. I then used a Synthes 2.4 locking plate. This was done under fluoroscopy and I created a subperiosteal plane proximally and then slid the plate from distal to proximal. This was confirmed under multiple fluoroscopic views. Two screws were then placed in the head of the metatarsal and thentwo locking screws were placed proximally. Excellent purchase and bite noted and overall excellent reduction was identified. I then made a stab incision on the medial aspect of the first metatarsal. I introduced the 3 mm Herbert needle biopsy and I took 2 autogenous bone plugs from the medial aspect of the first metatarsal head. This was then used to pack in dorsally along the nonunion site in a stressstrain type bone graft technique. This was then thoroughly irrigated with generous amounts of sterile saline. Attention then directed to the toe where standard incision was extended over the PIPJ. The toe still had a somewhat fixed deformity. Dissection was carried through the level of the PIPJ with re lease of the medial and lateral collateral ligaments. The cartilaginous surfaces were resected with a sagittal saw and a 0.045 inch K-wire was introduced in a retrograde fashion for a peg-in-hole type arthrodesis. This was confirmed under multiple fluoroscopic views and found to have excellent overallposition and alignment. Tourniquet was dropped. Hemostasis was obtained. Wound was then thoroughly irrigated with generous amounts of sterile saline. Deep closure with 3-0 and 4-0 Vicryl, skin with 4-0Prolene. A well-padded dressing was then placed on the left foot. Attention was then directed to theright foot where the limb was elevated and tourniquet inflated. The right great toenail was then avulsed under standard technique with a hemostat. Two proximal incisions were made medial and laterally and with a small [place] blade, I was able to carefully dissect or excise the germinal nail matrix. Tourniquet was dropped. Hemostasis was obtained. This area was then cauterized to attempt to prevent recurrence, closed with 4-0 chromic type suture. A well-padded dressing was placed on the right foot aswell. The patient tolerated anesthesia and procedure without complication and was taken from the OR to the PACU with all vital signs and vascular status intact. Electronically signed on 02/11/2011 13:37 by DANIEL TRUJILLO DPM MT: [id number] Name: SPEEDY MCDUFFIE Account: [id number] : 1940 Procedure Date: 02/06/2011 Document: [id number] cc: Michelle Hedrick MD documented in this encounter Plan of Treatment Not on filedocumented as of this encounter Visit Diagnoses Not on filedocumented in this encounter
--- OUTSIDE RECORDS SUMMARY | 2022-05-28 05:07 | XMS_ITS | Encounter Summary ---
:1940 Author Organization [facility] Address [address] [place] [address] Care Team Providers Name Role Phone Unavailable Primary Care Provider Unavailable Reason for Visit Reason Onset Date Comments Patient Inquiry 02/19/2011 [facility] and Creat risi ng Encounter Details Date Type Department Care Team Description 02/19/2011 Telephone [facility] Sal Chaparro Pat iestar Inquiry ([facility]ly [facility] [place] DPM and Creat rising) [address] [place] [address] [id number] [phone] Social History Tobacco Use Types Packs/Day Years Used Date Never Assessed Sex Assigned at Date Recorded Not on file documented as of this encounter Miscellaneous Notes Telephone Encounter - Kandy Cain - 02/19/2011 12:49 PM CDT Per Raquel the toe is looking better. Not as red and the swelling is going down. Gave her below orders. Kandy Cain CMA Telephone Encounter - Kandy Cain - 02/19/2011 12:46 PM CDT LM for Raquel to call me. Kandy Cain CMA Telephone Encounter - Sal Chaparro DPM - 02/19/2011 12:40 PM CDT Kandy, I think it reasonable to decrease to q day for Bactrim. Is he noticing improvement in redness and pain rt great toe? Telephone Encounter - Aruna Arriaza RN - 02/19/2011 12:00 PM CDT Pt daughter calls with concerns regarding fathers staph infection in toe, treatment with Bactrim BIDand increasing creat levels. Reports creat 1.9 with [facility] mid January.Rechecked today by PCP = creat is 2.38. PCP would like tosee pt go down on Bactrim to Q day, and also discontinued Lisinopril today. Daughter worried about decreasing Bactrim dose due to MRSA, however, creat is too high. Please advise and call daughter Raquel with plan @ [phone]. Thanks, Aruna Arriaza RN documented in this encounter Plan of Treatment Not on filedocumented as of this encounter Visit Diagnoses Not on filedocumented in this encounter
== END 2022-05-22 13:33 | disposition home or self-care (01) ==
LOC: WOUND 13:32
PROVIDERS: PCP Family Medicine; Visit Provider Nurse Practitioner Family
DX: L89.324 Pressure ulcer of left buttock, stage 4 (principal)
CPT/HCPCS: 15271; 97605; Q4151

== ENCOUNTER 2022-05-30 07:34 | Outpatient (CLI) | payer MEDICARE, BC, SELFPAY | END 2022-05-30 07:35 | disposition home or self-care (01) | LOC: AMB 06-10 15:07 | PROVIDERS: PCP Family Medicine; Visit Provider Family Medicine | DX: R50.9 Fever, unspecified (principal) | CPT/HCPCS: A0425; A0429 ==

== ENCOUNTER 2022-05-30 08:01 | Emergency (ER) | payer MEDICARE, BC, SELFPAY ==
[2022-05-30 08:07] VITALS: BP 128/85; PULSE 72; RESP 20; TEMP 38; O2SAT 96; BMI 25.3
--- NOTE | 2022-05-30 08:25 | ED_ITS ---
HPI - General Adult General Time Seen by Provider: 08:24 Date Seen: 05/30/22 Chief complaint: Fever Stated complaint: Fever Time Seen by Provider: 05/30/22 08:23 Source: patient and RN notes reviewed Mode of arrival: EMS Limitations: no limitations History of Present Illness HPI narrative: Patient is a 81-year-old male coming in by EMS from home with a fever. He re ceived his 4th COVID vaccine yesterday, started feeling unwell last night. He did go to dinner at his daughter's but just did not feel well. He had a headache last night, started feeling lightheaded or dizzy before bed. He did fall asleep. At about 330 in the morning he woke up with shaking chills and a fever. He eventually had an emesis and then did proceed to come in here because of his symptoms. He recently came back from [place] where he was in the hospital for 3 months recuperating from any aortic aneurysm repair, possibly descending, sounds as if they went through the groin. He ended up with an ulcer which is being managed with a wound VAC here. He just had it cleaned and changed out yesterday. No increased pain of the site. He is not aware of any ill contacts necessarily. He has felt achy since the fevers in the shot but no new acute pain. No abdominal pain. He is no longer feeling nauseated. He just overall feels weak. He is not sure if he had Pfizer or Biotz. MD complaint: Fever, weakness, episode of vomiting with fever, COVID booster yesterday Related Data Home Medications Medication Instructions Recorded Confirmed acetaminophen 325 mg capsule 325 mg PO ONCE PRN 05/20/22 apixaban 2.5 mg tablet (Eliquis) 2.5 mg PO BID 05/20/22 atorvastatin 40 mg tablet 40 mg PO QDAY 05/20/22 diclofenac 75 mg-misoprostol 200 1 tab PO BID 05/20/22 mcg tablet,immediate,delayed release (Arthrotec) furosemide 20 mg tablet 40 mg PO QDAY 05/20/22 metoprolol tartrate 50 mg tablet 50 mg PO BID 05/20/22 pramipexole 0.5 mg tablet 0.5 mg PO QDAY 05/20/22 terazosin 5 mg capsule 5 mg PO .pm 05/20/22 Allergies Allergy/AdvReac Type Severity Reaction Status Date / Time penicillin V Allergy Mild Unknown Verified 05/14/22 12:13 amlodipine Allergy Unknown Unknown Verified 05/14/22 12:13 procaine Allergy Unknown Unknown Verified 05/14/22 12:13 Review of Systems Status of ROS: Reports: 10 or more systems reviewed and unremarkable except as noted in History and below [facility] Medical History (Updated 05/30/22 @ 11:15 by Lizzy Peña MD) Arthritis CVA (cerebral vascular accident) History of bronchitis Hyperlipidemia Hypertension Surgical History (Updated 05/20/22 @ 10:12 by Lianna Shen CMA) H/O cardiac radiofrequency ablation History of fusion of cervical spine (~2006) History of lung surgery (~1984) History of spinal fusion (~1978) Family History (Updated 05/20/22 @ 10:16 by Lianna Shen CMA) Mother Stroke Breast cancer Father High blood pressure Abdominal aortic aneurysm Social History Smoking Status: Never smoker Do you use any of these nicotine containing products: None Second hand tobacco smoke exposure: Yes (remote) How often do you have a drink containing alcohol: 2-3 times a week How many standard drinks containing alcohol do you have on a typical day: 1 or 2 How often do you have six or more drinks on one occasion: Never AUDIT-C Alcohol total score: 3 Non-prescribed substance use: denies use service: Yes Exam Const: Vital Signs, click to edit/add: Vital Signs - 24 hr 05/30/22 08:07 05/30/22 09:11 05/30/22 10:03 Temperature 100.4 F H 97.4 F L Pulse Rate [Pulse Oximeter] 72 Respiratory Rate 20 Blood Pressure [Ri ght Upper Arm] 128/85 Pulse Oximetry 96 Oxygen Delivery Me thod Room Air Room Air Documenting provider has reviewed patient's vital signs: yes Common normals: no apparent distress, average body habitus, oriented x3, no limitations, healthy appearing and alert General appearance: cooperative, comfortable and well kempt HENMT: Common normals: normocephalic, head/scalp atraumatic, hearing grossly normal bilaterally, external ears normal, external nose normal, nasal mucous membranes and turbinates normal, moist oral mucous membranes, oropharynx normal, dentition normal and gingiva normal Head and scalp: normocephalic and atraumatic Nose: external nose normal and nasal mucous membranes and turbinates normal External ear: external ears normal Eye: Common normals: PERRL, EOMs intact bilaterally, conjunctivae normal and no scleral icterus Conjunctiva: conjunctiva(e) normal Pupil: PERRL Neck & C-Spine: Common normals: full ROM, no lymphadenopathy, supple, no meningeal signs, no JVD and thyroid normal Thyroid: thyroid normal Lymph: Lymphatic: no lymphadenopathy noted Chest: Other: Has intravascular access with with what appears to be a 2 lumen catheter going into his right anterior chest wall, no surrounding skin changes. Resp: Common normals: normal respiratory effort, no retractions, no use of accessory muscles and clear to auscultation bilaterally Auscultation: clear to auscultation bilaterally Cardio: Common normals: no JVD, regular rate, regular rhythm, S1 normal heart sound, S2 normal heart sound, no gallops, no clicks and no murmurs Rate: regular rate Rhythm: regular rhythm Heart sounds: S1 normal and S2 normal GI: Common normals: Normal to inspection, nondistended, normoactive bowel sounds present, soft to palpation, non-tender, no hepatosplenomegaly, no masses and no bruits Palpation: soft and no hepatosplenomegaly Back & Pelvis: Other: Has the wound VAC over his left lateral buttock/hip area, no surrounding skin changes. Just a small central strip of the wound VAC is still present. The surrounding skin area looks completely normal, thus, wound VAC not taken down. Extremity: Common normals: normal to inspection, full ROM, normal capillary refill, no joint enlargement, no clubbing, cyanosis or edema, no calf tenderness and no pedal edema Neuro: Common normals: oriented x3, CN's II-XII intact bilaterally, moves all extremities, no focal motor deficits and no sensory deficits noted Sensorium/orientation: alert Meningeal signs: no meningeal signs Psych: Appearance: well kempt Course Course Hospital Course: Patient's vitals are stable, he is not hypotensive or tachycardic, no hemodynamic compromise suggestive of sepsis at this time. He will be monitored closely, will have him on pulse oximetry. We will obtain blood cultures and a full complement of labs. I will give him 650 mg Tylenol for his fever. We will obtain a portable chest x-ray and a urine specimen. Hopefully this is just his vaccination but we do need to consider other infectious etiology. Will also be doing COVID testing in him in case he may have picked up COVID when he was out getting his vaccination or any of his wound cares. Reevaluation(s) Reevaluation #1: Patient's daughter is here, the daughter that is a mapping pilot. She was able to give me a bit more of his history. 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 There were complications any ended up with bilateral thoracotomies, ended up on dialysis. Sounds as if it was quite a lengthy hospitalization. He is actually at [facility] [address] [facility] now he made some urine overnight but has not been able to provide a urinalysis as of yet. I reviewed with patient and his daughter that his hemoglobin was at 10.4, she states that is quite good for him. His white count is normal. Lactate is minimally elevated at 2.5, did receive 250 mL. I reviewed that the procalcitonin is mildly elevated at 0.62 but this can be affected by a kidney dysfunction. He is feeling much better, his daughter notes that he has had reactions with prior COVID vaccines. They would like to try to discharge and proceed with dialysis. His COVID testing is negative. I do think that that is a reasonable option. She understands though that if he has progressive symptoms or is too weak, that I would certainly consider observation hospitalization. We cannot do that without having him have dialysis today. She is in agreement and would really like to get him to his dialysis appointment and see how he does. I think this is a reasonable approach. Time: 11:10 Vital Signs Vital signs: Initial Vital Signs Temperature 100.4 F H 05/30/22 08:07 Temperature Source Temporal Artery Scan 05/30/22 08:07 Pulse Rate 72 05/30/22 08:07 Pulse Rhythm 05/30/22 08:07 Respiratory Rate 20 05/30/22 08:07 Blood Pressure 128/85 05/30/22 08:07 Blood Pressure Mean 99 05/30/22 08:07 Blood Pressure Position Supine 05/30/22 08:07 Pulse Oximetry 96 05/30/22 08:07 Oxygen Delivery Method 05/30/22 08:07 Vital Signs Temperature 100.4 F H 05/30/22 08:07 Pulse Rate 72 05/30/22 08:07 Respiratory Rate 20 05/30/22 08:07 Blood Pressure 128/85 05/30/22 08:07 Pulse Oximetry 96 05/30/22 08:07 Oxygen Delivery Method 05/30/22 08:07 Temperature 97.4 F L 05/30/22 10:03 Pulse Rate 72 05/30/22 08:07 Respiratory Rate 20 05/30/22 08:07 Blood Pressure 128/85 05/30/22 08:07 Pulse Oximetry 96 05/30/22 08:07 Oxygen Delivery Method 05/30/22 09:11 Medical Decision Making Lab Data Lab results reviewed: Yes I reviewed the patient's lab results Labs: Lab Results 05/30/22 05/30/22 05/30/22 Range/Units 08:46 08:54 09:10 WBC 5.93 (4.50-11.00) K/uL RBC 3.46 L (4.30-5.90) m/uL Hgb 10.4 L (13.5-17.5) gm/dL Hct 32.6 L (37.0-53.0) % MCV 94 (80-100) fL MCH 30 (26-34) pg MCHC 32 (32-36) gm/dL RDW Coeff of Tosha 15.9 H (11.5-15.5) % Plt Count 149 (140-440) K/uL Neut % (Auto) 91.8 H (42.0-72.0) % Lymph % (Auto) 2.5 L (20-44) % [place] % (Auto) 5.2 (0.0-11.0) % Eos % (Auto) 0.2 (0.0-7.0) % Baso % (Auto) 0.3 (0.0-3.0) % Neut # (Auto) 5.40 (1.7-7.0) K/uL Lymph # (Auto) 0.10 L (0.90-2.90) K/uL [place] # (Auto) 0.30 (0.00-0.90) K/UL Eos # (Auto) 0.01 (0.00-0.50) K/uL Baso # (Auto) 0.02 (0.00-0.30) K/uL Abs Immat Gran (auto) 0.00 (0.00-0.30) K/uL Sodium 139 (135-149) mmol/L Potassium 4.3 (3.6-5.1) mmol/L Chloride 101 (96-114) mmol/L Carbon Dioxide 27 (20-32) mmol/L BUN 48 H (7-30) mg/dL Creatinine 2.4 H (0.5-1.5) mg/dL Estimated Creat Clear 22.52 Estimated GFR 27 ml/min Glucose 112 (60-115) mg/dL Lactate (0.5-1.9) mmol/L Calcium 8.8 (8.4-10.6) mg/dL Total Bilirubin 0.4 (0.1-1.5) mg/dL AST 39 H (12-35) U/L ALT 21 (4-50) U/L Alkaline Phosphatase 84 (40-150) U/L C-Reactive Protein 1.7 H (0.5-1.0) mg/dL Total Protein 7.0 (6.0-8.3) g/dL Albumin 3.6 (3.3-5.0) g/dL Procalcitonin 0.62 H (<0.50) ng/mL SARS-CoV-2 (PCR) Negative SARS-CoV-2 (Negative) 05/30/22 Range/Units 09:10 WBC (4.50-11.00) K/uL RBC (4.30-5.90) m/uL Hgb (13.5-17.5) gm/dL Hct (37.0-53.0) % MCV (80-100) fL MCH (26-34) pg MCHC (32-36) gm/dL RDW Coeff of Tosha (11.5-15.5) % Plt Count (140-440) K/uL Neut % (Auto) (42.0-72.0) % Lymph % (Auto) (20-44) % [place] % (Auto) (0.0-11.0) % Eos % (Auto) (0.0-7.0) % Baso % (Auto) (0.0-3.0) % Neut # (Auto) (1.7-7.0) K/uL Lymph # (Auto) (0.90-2.90) K/uL [place] # (Auto) (0.00-0.90) K/UL Eos # (Auto) (0.00-0.50) K/uL Baso # (Auto) (0.00-0.30) K/uL Abs Immat Gran (auto) (0.00-0.30) K/uL Sodium (135-149) mmol/L Potassium (3.6-5.1) mmol/L Chloride (96-114) mmol/L Carbon Dioxide (20-32) mmol/L BUN (7-30) mg/dL Creatinine (0.5-1.5) mg/dL Estimated Creat Clear Estimated GFR ml/min Glucose (60-115) mg/dL Lactate 2.5 H (0.5-1.9) mmol/L Calcium (8.4-10.6) mg/dL Total Bilirubin (0.1-1.5) mg/dL AST (12-35) U/L ALT (4-50) U/L Alkaline Phosphatase (40-150) U/L C-Reactive Protein (0.5-1.0) mg/dL Total Protein (6.0-8.3) g/dL Albumin (3.3-5.0) g/dL Procalcitonin (<0.50) ng/mL SARS-CoV-2 (PCR) (Negative) Imaging Data Chest x-ray: Attestation: I have reviewed the pertinent imaging results. Radiologist's impression: Patient: ELDA MCDUFFIE Facility:?[facility] Patient ID:?[id number] Site Patient ID:?[id number]. Site :?[id number] Study:?XRay Chest PORTABLE-05/30/2022 8:49:05 AM Ordering Physician:?Mariana Ball Final Report: INDICATION: FEVER TECHNIQUE: Chest 1 view COMPARISON: None FINDINGS: Dual lumen catheter is present. No pneumothorax. Aortic stent graft. Postop changes lower cervical spine. Small pleural effusions. Right lateral extrapleural thickening. Patchy areas of scarring bilaterally. No dense infiltrate. IMPRESSION: Trace pleural effusions. No dense infiltrate. Dictated by Bishop Garcia MD @ 05/30/2022 9:10:38 AM (Electronic Signature) Critical Care Time Critical Care Time Critical Care Time: No Discharge Plan Discharge Clinical Impression: Adverse effect of COVID-19 vaccine, Fever Condition: Stable Instructions: Fever in Adults (ED) Additional Instructions: Can use Tylenol as needed for aches, headache, or fever from the COVID vaccine. Your COVID PCR test here in the ED is negative. There is no definitive infectious etiology that is found on your workup today. Thus, it certainly is most likely that this fever is coming from a side effect from the COVID vaccine. She do develop specific symptomatology pointing to a a source of infection, please seek re-evaluation. Activity Level: Activity as Tolerated Prescriptions: No Action metoprolol tartrate 50 mg tablet 50 mg PO BID Label Comments: TAKE ONE TABLET BY MOUTH TWICE A DAY acetaminophen 325 mg capsule 325 mg PO ONCE PRN Eliquis 2.5 mg tablet 2.5 mg PO BID Label Comments: TAKE ONE TABLET BY MOUTH TWICE A DAY atorvastatin 40 mg tablet 40 mg PO QDAY Label Comments: TAKE ONE TABLET BY MOUTH ONCE DAILY diclofenac-misoprostol [Arthrotec 75] 75-200 mg-mcg tablet,IR,delayed rel,biphasic 1 tab PO BID terazosin 5 mg capsule 5 mg PO .pm Label Comments: TAKE ONE CAPSULE BY MOUTH EVERY DAY AT BEDTIME furosemide 20 mg tablet 40 mg PO QDAY Label Comments: TAKE 2 TABLETS (40 MG) BY MOUTH EVERY MORNING. pramipexole 0.5 mg tablet 0.5 mg PO QDAY Follow Up/Referrals: Marija Ramirez MD [Primary Care Provider] - Stand Alone Forms: [employer] Info Instructions
--- NOTE | 2022-05-30 08:35 | CRLHL7_ITS ---
For Patients: As a result of the Cures Act, medical imaging exams and procedure reports are released immediately into your electronic medical record. You may view this report before your referring provider. If you have questions, please contact your health care provider. INDICATION: FEVER TECHNIQUE: Chest 1 view COMPARISON: None FINDINGS: Dual lumen catheter is present. No pneumothorax. Aortic stent graft. Postop changes lower cervical spine. Small pleural effusions. Right lateral extrapleural thickening. Patchy areas of scarring bilaterally. No dense infiltrate. IMPRESSION: Trace pleural effusions. No dense infiltrate. Dictated by Bishop Garcia MD @ 05/30/2022 9:10:38 AM (Electronically Signed)
--- OUTSIDE RECORDS SUMMARY | 2022-05-30 08:42 | XMS_ITS | Clinical Summary ---
:1940 Author Organization [facility] Facility Address [address] [place] [address] Care Team Providers Name Role Phone Unavailable Primary Care Provider Unavailable Encounters Date Type Specialty Care Team Description 05/28/2022 Orders Only NephDenilson Isidro MD 05/28/2022 Treatment Denilson Holly MD 05/23/2022 Orders Only NephDenilson Isidro MD 05/21/2022 Orders Only Denilson Leahy MD 05/19/2022 Orders Only Denilson Leahy MD 05/14/2022 Orders Only Denilson Leahy MD 05/14/2022 Treatment Denilson Holly MD 05/07/2022 Orders Only NephDenilson Isidro MD 05/02/2022 Orders Only NephDenilson Isidro MD 04/23/2022 Orders Only NephDenilson Isidro MD 04/16/2022 Orders Only Denilson Lehay MD 04/16/2022 Treatment Denilson Holly MD 04/16/2022 [...] Name Priority Date/Time Associated Diagnosis Comme nts CHEMISTRY Routine 05/28/2022 Results for thi s procedure are i n the results section . GFR (HC) Routine 05/28/2022 Results for thi s procedure are i n the results section . HEMATOLOGY Routine 05/28/2022 Results for thi s procedure are i [...] section . SPECTRA JALEEL LAB RESULTS Routine 05/21/2022 Resul ts for this procedure are i [...] . from Last 3 Months Results GFR (05/28/2022)Only the most recent of8 resultswithin the time period is included. P athologist Signature eGFR CKD-EPI CR 30 mL/min APS SPECTRA 2020 [facility] Comment: [facility] has implemented the recommended eGFR calculation that [...] ceived Time Location / / Volume Laterality 05/28/2022 05/29/2022 2:27 PM CDT Narrative [facility]PS [facility]PECT[facility] - 05/29/2022 Unless otherwise specified, test(s) performed at: [facility], [address] [place] [address], [place] [address] INSURANCE LICENSING SUPERVISOR: Raheem Malik M.D., Ph.D For any questions, please call customer service at FREQUENCY:OTHER Resulting Agency Comment Specimen source: Serum Denilson Holly MD LAB [id number] NSOLICITED RESULTS Performing Organization Address City/State/ZIP Code Phon e Number [facility]PS [facility]PECT[facility] (ABNORMAL) HEMATOLOGY (05/28/2022)Only the most recent of7 resultswithin the time period is included. Analysis Performed At Patho logist Time Signature Hemoglobin 9.9 (L) 14.0 - [facility] 18.0 g/dL [facility] Hemoglobin x 3 29.7 (L) 42.0 - [facility] 54.0 % [facility] Specimen (Source) Anatomical Collection Method Collection Time Re ceived Time Location / / Volume Laterality 05/28/2022 05/29/2022 7:35 AM CDT Narrative [facility]PS [facility]PECT[facility] - 05/29/2022 Unless otherwise specified, test(s) performed at: [facility], [address] [place] [address] [employer] [facility] [place] [address] INSURANCE LICENSING SUPERVISOR: Raheem Malik M.D., Ph.D For any questions, please call customer service at FREQUENCY:OTHER Resulting Agency Comment Specimen source: Blood Denilson Holly MD LAB BLOOD ORDERABLES Performing Organization Address City/State/ZIP Code Phon e Number [facility]PS [facility] (ABNORMAL) Spectrae Chemistry (05/28/2022)Only the most recent of11 results within the time period is included. athologist Signature BUN 54 (H) 6 - 19 [facility]PECTRA mg/dL [facility] Creatinine 2.19 (H) 0.60 - 1.30 [facility] SPECTRA mg/dL [facility] Comment: Custom Exception BUN/Creatinine Ratio 24.7 (H) 10.0 - 20.0 APS SPE CTRA [facility] Sodium 139 136 - 145 mEq/L [facility] [place] [facility] Potassium 4.4 3.5 - 5.1 mEq/L [facility] [place] [facility] Chloride 103 96 - 108 mEq/L [facility] Bicarbonate (CO2) 26 20 - 31 mEq/L APS SPEC TRA [facility] Comment: Please note change in reference range. Specimen (Source) Anatomical Collection Method Collection Time Re ceived Time Location / / Volume Laterality 05/28/2022 05/29/2022 2:27 PM CDT Resulting Agency Comment Specimen source: Serum Denilson Holly MD LAB BLOOD ORDERABLES Performing Organization Address City/State/ZIP Code Phon e Number [facility]PS [facility]PECT[facility] (ABNORMAL) URINE CLEARANCE (05/23/2022) athologist Signature Urea Nitrogen, 348 mg/dL APS [...] 05/26/2022 Unless otherwise specified, test(s) performed at: [facility], [employer] [employer] [facility] [place] [address] INSURANCE LICENSING SUPERVISOR: Raheem Malik M.D., Ph.D For any questions, please call customer service at FREQUENCY:OTHER Resulting Agency Comment Specimen source: Urine Denilson Holly MD LAB URINE ORDERABLES Performing Organization Address City/[facility] Phon e Number APS SPECTRA [facility] PATIENT INFORMATION (05/23/2022)Only the most recent of4 resultswithin the time period is included. P athologist Signature Patient BSA 1.75 sq. M. [facility]PS SPECTRA [facility] Comment: Normalized values are calculated using t he patient's actual BSA and normalized to the average BSA of 1.73m2. Specimen (Source) Anatomical Collection Method Collection Time Re ceived Time Location / / Volume Laterality 05/23/2022 05/26/2022 12:2 5 PM CDT Narrative APS SPECTRA [facility] - 05/26/2022 Unless otherwise specified, test(s) performed at: [facility], [employer] [facility] [place] [address] INSURANCE LICENSING SUPERVISOR: Raheem Malik M.D., Ph.D For any questions, please call customer service at FREQUENCY:OTHER Resulting Agency Comment Specimen source: PD Fluid Denilson Holly MD LAB BLOOD ORDERABLES Performing Organization Address [facility] Phon e Number APS SPECTRA [facility] HD KINETICS (05/21/2022)Only the most recent of3 resultswithin the time period is included. P athologist Signature % Urea 76 65 - 80 % APS SPECTRA Reduction [facility] Specimen (Source) Anatomical Collection Method Collection Time Re ceived Time Location / / Volume Laterality 05/21/2022 05/22/2022 5:02 AM CDT Narrative APS SPECTRA [facility] - 05/27/2022 Unless otherwise specified, test(s) performed at: [facility], [employer] [facility] [place] [address] INSURANCE LICENSING SUPERVISOR: Raheem Malik M.D., Ph.D For any questions, please call customer service at FREQUENCY:MONTHLY Resulting Agency Comment Specimen source: Plasma Denilson Holly MD LAB BLOOD ORDERABLES Performing Organization Address City/[facility]/ZIP Code Phon e Number APS SPECTRA [...] 05/22/2022 Unless otherwise specified, test(s) performed at: [facility], [address] [place] [address], [place] [address] INSURANCE LICENSING SUPERVISOR: Raheem Malik M.D., Ph.D For any questions, please call customer service at FREQUENCY:MONTHLY Resulting Agency Comment Specimen source: Plasma Denilson Holly MD LAB BLOOD ORDERABLES Performing Organization Address City/[facility] Code Phon e Number [facility]PS SPECTRA [facility] IMMUNO CHEMISTRY (05/21/2022)Only the most recent of3 resultswithin the time period is included. athologist Signature Hep B Surface Negative Negative [...] for the general public, refer to MMWR Dece 2004/Vol.54 (No. 16); -, and for healthcare [...] 05/22/2022 Unless otherwise specified, test(s) performed at: [facility], [address] [place] [address] INSURANCE LICENSING SUPERVISOR: Raheem Malik M.D., Ph.D For any questions, please call customer service at FREQUENCY:MONTHLY Resulting Agency Comment Specimen source: Plasma Denilson Holly MD LAB BLOOD ORDERABLES Performing Organization Address City/State/ZIP Code Phon e Number APS SPECTRA [facility] Spectra JALEEL Lab Results (05/21/2022)Only the most recent of3 resultswithin the time period is included. athologist Signature eKt/V 1.39 JALEEL ([place]) spKt/V 1.66 JALEEL ([place] II) Specimen (Source) Anatomical Location Collection Method / Collectio n Time Received Time / Laterality Volume 05/21/2022 05/21/2022 Jaleel Ordering Provider LAB BLOOD ORDERABLES Performing Organization Address City/[facility]/ZIP Code Phon e Number JALEEL [employer] (04/23/2022)Only the most recent of2 resultswithin the time period is included. athologist Signature Aluminum <5 0 - 10 APS SPECTRA mcg/L [facility] Comment: This test was developed and its performa nce characteristics determined by [facility]. It has not been cleared or approved by the FDA. The laboratory is regulated under CLIA a s qualified to perform high complexity testing. This test is used fo r clinical purposes. It should not be regarded as investigational or fo r research. Test performed at [facility], [address] [place] [address]. Telephone . Medical Direct or: Henok Correa MD. Specimen (Source) Anatomical Collection Method Collection Time Re ceived Time Location / / Volume Laterality 04/23/2022 04/25/2022 7:04 PM CDT Narrative APS SPECTRA [facility] - 04/27/2022 Unless otherwise specified, test(s) performed at: [facility], [address] [place] [address] INSURANCE LICENSING SUPERVISOR: Raheem Malik M.D., Ph.D For any questions, please call customer service at FREQUENCY:MONTHLY Resulting Agency Comment Specimen source: Serum Denilson Holly MD LAB BLOOD ORDERABLES Performing Organization Address City/State/ZIP Code Phon e Number APS SPECTRA [facility] from Last 3 Months Insurance Payer Benefit Plan / Subscriber ID Effective Dates Phone Addre ss Type Group [place] [id number] 2016-Present [phone] [address] [address] ([id number]) [place] [address]
--- OUTSIDE RECORDS SUMMARY | 2022-05-30 08:42 | XMS_ITS | Encounter Summary ---
:1940 Author Organization [place] Address [facility] [place] [address] Care Team Providers Name Role Phone Clinic, [facility] Primary Care Provider Gallito Gonzalez MD Unavailable Encounter Details Date Type Department Care Team Description 11/04/2021 Telephone [facility] Gallito Gonzalez, Clinic Tram [facility] [address] [place] [address] [place] [address] [phone] (Wo rk) Social History Tobacco Use Types [...] Gonzalez and pt notified. SHASTA Sotomayor, JOSE [facility] Office: [phone] Telephone Encounter - Ro Taylor RN - 11/26/2021 1:[address] Gonzalez, Dr. Orosco was notified. Awaiting further direction from Dr. Gonzalez upon their discussion and to ensure pts daughter is notified. SHASTA Sotomayor, JOSE [facility] Office: [phone] ESTATE LOAN PROCESSOR Telephone Encounter - Ro Taylor RN - 11/04/2021 4:56 PM CST JAMES 09/23/[address] Gonzalez I will get in touch with the patient's daughter after I discussed the case with Dr. Orosco Routing to Dr. Gonzalez for update on this/plan and verification of pts daughter contacted. SHASTA Sotomayor, JOSE [facility] Office: [phone] ESTATE LOAN PROCESSOR documented in this encounter Plan of Treatment Not on filedocumented as of this encounter Visit Diagnoses Not on filedocumented in this encounter Additional Health Concerns Infection Onset Date Last Indicated Resolved Time MRSAComment: Positive 02/17/11 and 09/22/12 11/05/2018 019 Negatives 05/03/14 (HE), 12/01/14 (HE) documented as of this encounter Care Teams Cocktail Lounge Manager Relationship Specialty Start Date End Date Clinic, [facility] PCP - General 05/12/17 [address] [place] [address] Gallito Gonzalez MD Assigned Heart and Vascular 09/29/21 [address] Provider [place] [address] documented as of this encounter
--- OUTSIDE RECORDS SUMMARY | 2022-05-30 08:42 | XMS_ITS | Encounter Summary ---
:1940 Author Organization [facility] Address [address] [place] [address] Care Team Providers Name Role Phone Unavailable Primary Care Provider Unavailable Encounter Details Date Type Department Care Team Description 05/19/2022 Orders [facility] f Denilson Quinones MD [address] [place] [address] [place], [place] [phone] (Wo rk) Social History Tobacco Use [...] 24 mL/min APS SPECTRA 2020 [facility] Comment: [facility] has implemented the recommended eGFR calculation that [...] 05/20/2022 Unless otherwise specified, test(s) performed at: [facility], [address]ideon [facility] [place] [address] COLLEGE RECRUITER: Raheem Malik M.D., Ph.D For any questions, please call customer service at FREQUENCY:OTHER Resulting Agency Comment Specimen source: Serum Denilson Holly MD LAB [id number] NSOLICITED RESULTS Performing Organization Address City/[facility] [...] 05/20/2022 Unless otherwise specified, test(s) performed at: [facility], [address] [facility] [place] [address] COLLEGE RECRUITER: Raheem Malik M.D., Ph.D For any questions, please call customer service at FREQUENCY:OTHER Resulting Agency Comment Specimen source: PD Fluid Denilson Holly MD LAB BLOOD ORDERABLES Performing Organization Address City/[facility] Phon e Number APS SPECTRA [facility] documented in this encounter Visit Diagnoses Not on filedocumented in this encounter
--- OUTSIDE RECORDS SUMMARY | 2022-05-30 08:42 | XMS_ITS | Encounter Summary ---
:1940 Author Organization [facility] Address [address] [place] [address] Care Team Providers Name Role Phone Unavailable Primary Care Provider Unavailable Encounter Details Date Type Department Care Team Description 04/23/2022 Orders [facility] O f Denilson Quinones MD [address] [place] [address] [place], [place] [phone] (Wo rk) Social History Tobacco Use [...] and its performa nce characteristics determined by [facility]. It has not been cleared or approved by the FDA. The laboratory is regulated under CLIA a s qualified to perform high complexity testing. This test is used fo r clinical purposes. It should not be regarded as investigational or fo r research. Test performed at [facility], [address] [place] [address]. Telephone . Medical Direct or: Henok Correa MD. Specimen (Source) Anatomical Collection Method Collection Time Re ceived Time Location / / Volume Laterality 04/23/2022 04/25/2022 7:04 PM CDT Narrative APS SPECTRA [facility] - 04/27/2022 Unless otherwise specified, test(s) performed at: [facility], [address] [place] [address], [place] [address] MAINTENANCE CONSTRUCTION HELPER: Raheem Malik M.D., Ph.D For any questions, [...] for the general public, refer to MMWR [facility] 2004/Vol.54 (No. 16); -, and for healthcare [...] 04/26/2022 Unless otherwise specified, test(s) performed at: [facility], [address] [place] [address], [place] [address] MAINTENANCE CONSTRUCTION HELPER: Raheem Malik M.D., Ph.D For any questions, [...] - 1.5 [facility]PS SPECTRA Relative % [facility] AYRIEL 2.0 0.0 - 4.0 APS SPECTRA % [facility] Platelets 203 130 - 400 APS SPECTRA 1000/mcL [facility] Specimen (Source) Anatomical Collection Method Collection Time Re ceived Time Location / / Volume Laterality 04/23/2022 04/25/2022 5:40 PM CDT Narrative APS SPECTRA [facility] - 04/25/2022 Unless otherwise specified, test(s) performed at: [facility], [address] [place] [address], [place] [address] MAINTENANCE CONSTRUCTION HELPER: Raheem Malik M.D., Ph.D For any questions, [...] 04/25/2022 Unless otherwise specified, test(s) performed at: [facility], [address] [place] [address] gideon [place] [address] MAINTENANCE CONSTRUCTION HELPER: Raheem Malik M.D., Ph.D For any questions, [...] 04/25/2022 Unless otherwise specified, test(s) performed at: [facility], [address] [place] [address] [place] [address] MAINTENANCE CONSTRUCTION HELPER: Raheem Malik M.D., Ph.D For any questions, please call customer service at FREQUENCY:MONTHLY Resulting Agency Comment Specimen source: Serum Denilson Holly MD LAB BLOOD ORDERABLES Performing Organization Address City/State/ZIP Code Phon e Number APS SPECTRA [facility] documented in this encounter Visit Diagnoses Not on filedocumented in this encounter
--- OUTSIDE RECORDS SUMMARY | 2022-05-30 08:42 | XMS_ITS | Encounter Summary ---
:1940 Author Organization [facility] Address [address] [place] [address] Care Team Providers Name Role Phone Unavailable Primary Care Provider Unavailable Encounter Details Date Type Department Care Team Description 05/23/2022 Orders Only [facility] f Denilson Quinones MD [address] [place] [address] [place], [place] [phone] (Wo rk) Social History Tobacco Use [...] 05/26/2022 Unless otherwise specified, test(s) performed at: [facility], [address] [place] [address], [place] [address] MANAGER WATER WASTEWATER: Raheem Malik M.D., Ph.D For any questions, please call customer service at FREQUENCY:OTHER Resulting Agency Comment Specimen source: Urine Denilson Holly MD LAB URINE ORDERABLES Performing Organization Address [facility] Phon e Number APS SPECTRA [facility] PATIENT INFORMATION (05/23/2022) athologist [facility] Patient BSA 1.75 sq. M. APS SPECTRA [facility] Comment: Normalized values are calculated using t he patient's actual BSA and normalized to the average BSA of 1.73m2. Specimen (Source) Anatomical Collection Method Collection Time Re ceived Time Location / / Volume Laterality 05/23/2022 05/26/2022 12:2 5 PM CDT Narrative APS SPECTRA [facility] - 05/26/2022 Unless otherwise specified, test(s) performed at: [facility], [address] [place] [address], [place] [address] MANAGER WATER WASTEWATER: Raheem Malik M.D., Ph.D For any questions, please call customer service at FREQUENCY:OTHER Resulting Agency Comment Specimen source: PD Fluid Denilson Holly MD LAB BLOOD ORDERABLES Performing Organization Address City/[facility] Phon e Number APS SPECTRA [facility] (ABNORMAL) [...] 27 mL/min APS SPECTRA 2020 [facility] Comment: [facility] has implemented the recommended eGFR calculation that [...] 05/26/2022 Unless otherwise specified, test(s) performed at: [facility], [address] [place] [address], [place] [address] MANAGER WATER WASTEWATER: Raheem Malik M.D., Ph.D For any questions, please call customer service at FREQUENCY:OTHER Resulting Agency Comment Specimen source: Serum Denilson Holly MD LAB [id number] NSOLICITED RESULTS Performing Organization Address City/State/ZIP Code [...] 05/26/2022 Unless otherwise specified, test(s) performed at: [facility], [address] [place] [address], [place] [address] MANAGER WATER WASTEWATER: Raheem Malik M.D., Ph.D For any questions, please call customer service at FREQUENCY:OTHER Resulting Agency Comment Specimen source: PD Fluid Denilson Holly MD LAB BLOOD ORDERABLES Performing Organization Address City/State/ZIP Code Phon e Number APS SPECTRA [facility] documented in this encounter Visit Diagnoses Not on filedocumented in this encounter
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
--- OUTSIDE RECORDS SUMMARY | 2022-05-30 08:42 | XMS_ITS | Encounter Summary ---
:1940 Author Organization [facility] Address [address] [place] [address] Care Team Providers Name Role Phone Unavailable Primary Care Provider Unavailable Encounter Details Date Type Department Care Team Description 05/14/2022 Orders Only [facility] O f Denilson Quinones MD [address] [place] [address] [place], [place] [phone] (Wo rk) Social History Tobacco Use [...] 05/15/2022 Unless otherwise specified, test(s) performed at: [facility], [address] [place] [address] [place] [address] CD MANUFACTURING SUPERVISOR: Raheem Malik M.D., Ph.D For any [...] MD LAB BLOOD ORDERABLES Performing Organization Address City/[facility]/ZIP Code Phon e Number APS SPECTRA [facility] GFR (05/14/2022) P athologist Signature eGFR CKD-EPI CR 24 mL/min APS SPECTRA 2020 [facility] Comment: [facility] has implemented the recommended eGFR calculation that [...] 05/15/2022 Unless otherwise specified, test(s) performed at: [facility], [address] [place] [address] [place] [address] CD MANUFACTURING SUPERVISOR: Raheem Malik M.D., Ph.D For any questions, please call customer service at FREQUENCY:OTHER Resulting Agency Comment Specimen source: Serum Denilson Holly MD LAB [id number] NSOLICITED RESULTS Performing Organization Address City/State/ZIP Code Phon e Number APS SPECTRA [facility] documented in this encounter Visit Diagnoses Not on filedocumented in this encounter
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
--- OUTSIDE RECORDS SUMMARY | 2022-05-30 08:42 | XMS_ITS | Clinical Summary ---
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 Pulse 57 09/23/2021 10:34 AM TROLLEY WORKER Temperature 36.6 ??C (97.9 ??F) 11/09/2018 7:31 AM TROLLEY WORKER Respiratory Rate 16 09/23/2021 10:34 AM TROLLEY WORKER Oxygen Saturation 99% 09/23/2021 10:34 AM TROLLEY WORKER Inhaled Oxygen Concentration - - Weight 79.4 kg (175 lb) 09/23/2021 10:34 AM TROLLEY WORKER Height 167.6 cm (5' 6) 09/23/2021 10:34 AM TROLLEY WORKER Body Mass Index 28.25 09/23/2021 10:34 AM TROLLEY WORKER Plan of Treatment Health Maintenance Due Date [...] this topic Medical Devices Implanted Type Area Pre Sales Technical Consultant Device Shelf Model / Identifier Expiration Serial / Date Lot Graft Master Matrix 10cc [id number] Bone/Tissue N/A: Back [employer] 04/17/2017 [id number] / Implanted: Qty: 1 on 11/29/2014 /Biologic / [id number] Medtronic Valiant Navion Thoracic Graft System (37mm X 37mm X 223mm X 20fr.) Graft N/A: Aorta [employer] 07/25/2020 [id number] / Implanted: Qty: 1 on 11/05/2018 by Juan Delcid MD at [facility] [id number] / Alessio Precut Contoured 70x5.5mm Metallic N/A: Back [employer] [id number] / Implanted: Qty: 2 on 11/29/2014 Hardware/An / chor NA Cervical Rods/Screws Angio-Seal Vip Vascular Closure Device Right: 08/18/2019 [id number] / Implanted: Qty: 1 on 11/05/2018 by Juan Delcid MD at [facility] Arterial / [id number] Description: Perclose Device sutured int o the right common femoral artery. Explanted Type Area Pre Sales Technical Consultant Device Shelf Model / Identifier Expiration Date Ser ial / Lot Pedicle Screws Metallic And Rods Hardware/Anch or Additional Health Concerns Infection Onset Date Last Indicated MRSAComment: Positive 02/17/11 and 09/22/12 11/05/2018 11/05/2018 Negatives 05/03/14 (HE), 12/01/14 (HE) Insurance Payer Benefit Plan / Subscriber ID Effective Phone Address T ype Group Dates MEDICARE MEDICARE FOR HB [id number] 2012-Prese [phone] ATTN CLAIMS Medicare SUPPLEMENT nt 40 [address] [place] [address] BCBS BCBS [place] [id number] 2012-Prese [phone] [address] [address] PPO BLUE nt 00 [place] [address] Advance Directives For more information, please contact: [phone] Latest Code Status on File Code Status Date Activated Date Inactivated Comments Full Code 11/15/2017 2:04 AM 11/15/2017 2:27 PM Full Code 05/12/2017 1:29 PM 11/15/2017 2:04 AM Full Code 05/05/2017 5:50 PM 05/12/2017 1:29 PM Care Teams Calculating Machine Operator Relationship Specialty Start Date End Date [facility] PCP - General 05/12/[address] [place] [address] Gallito Gonzalez MD Assigned Heart and Vascular 09/29/21 [address] Provider [place] [address]
--- OUTSIDE RECORDS SUMMARY | 2022-05-30 08:42 | XMS_ITS | Encounter Summary ---
:1940 Author Organization [facility] Address [address] [place] [address] Care Team Providers Name Role Phone Unavailable Primary Care Provider Unavailable Encounter Details Date Type Department Care Team Description 04/16/2022 Office Communication [facility] [place] MD [address] [place] [phone] Social History Tobacco Use Types Packs/Day Years Used Date Smoking Tobacco: Never Assessed Sex Assigned at Date Recorded Not on file documented as of this encounter Miscellaneous Notes Telephone Encounter - Brandy Murrell - 04/16/2022 1:39 PM CDT Chart created per request from Dr. Hloly. documented in this encounter Plan of Treatment Not on filedocumented as of this encounter Visit Diagnoses Not on filedocumented in this encounter
--- OUTSIDE RECORDS SUMMARY | 2022-05-30 08:42 | XMS_ITS | Encounter Summary ---
:1940 Author Organization [facility] Address [address] [place] [address] Care Team Providers Name Role Phone Unavailable Primary Care Provider Unavailable Encounter Details Date Type Department Care Team Description 05/07/2022 Orders Only [facility] O f Denilson Quinones MD [address] [place] [address] [place], [place] [phone] (Wo rk) Social History Tobacco Use [...] MD LAB BLOOD ORDERABLES Performing Organization Address City/[facility] Code Phon e Number APS SPECTRA [facility] GFR (05/07/2022) P athologist Signature eGFR CKD-EPI CR 30 mL/min APS SPECTRA 2020 [facility] Comment: [facility] has implemented the recommended eGFR calculation that [...] 05/08/2022 Unless otherwise specified, test(s) performed at: [facility], [address] [place] [address], [place] [address] AUDIO VISUAL DIRECTOR: Raheem Malik M.D., Ph.D For any questions, please call customer service at FREQUENCY:OTHER Resulting Agency Comment Specimen source: Serum Denilson Holly MD LAB [id number] NSOLICITED RESULTS Performing Organization Address City/[facility] Code Phon e Number APS SPECTRA [facility] [...] 05/08/2022 Unless otherwise specified, test(s) performed at: [facility], [address] [place] [address], [place] [address] AUDIO VISUAL DIRECTOR: Raheem Malik M.D., Ph.D For any questions, please call customer service at FREQUENCY:OTHER Resulting Agency Comment Specimen source: Blood Denilson Holly MD LAB BLOOD ORDERABLES Performing Organization Address City/State/ZIP Code Phon e Number APS SPECTRA [facility] documented in this encounter Visit Diagnoses Not on filedocumented in this encounter
--- OUTSIDE RECORDS SUMMARY | 2022-05-30 08:42 | XMS_ITS | Encounter Summary ---
:1940 Author Organization [facility] Address [address] [place] [address] Care Team Providers Name Role Phone Unavailable Primary Care Provider Unavailable Encounter Details Date Type Department Care Team Description 05/28/2022 Treatment [facility] Denilson Quinones MD [address] [place] [address] [place], [place] [phone] (Wo rk) Social History Tobacco Use Types Packs/Day Years Used Date Smoking Tobacco: Never Assessed Sex Assigned at Date Recorded Not on file documented as of this encounter Miscellaneous Notes Dialysis Note - Denilson Holly MD - 05/28/2022 12:50 PM CDT Date: May 28, 2022 Patient Name: Speedy Hendricks : 1940 Chart #: [id number] Sex: M 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 The patient complains of the following - 05/28/22: He is doing ok. Residual function is low, CrCl was <5 and UreaCl <1 but possible undercollection as urine from night time may have been thrown out so will do again. He is gaining strength. Possible to go home in next 2-4 weeks. He may consider graft in upper arm, hasn't decided for sure. Abscess now resolved and drain is out. 05/14/22: He has declined AVF/AVG placement at [...] HD, but still requiring HD. Transferred from [place] rehab to [facility], hoping to get home. First Hd here today, dry weight much lower than what they had listed it appears. Med list reviewed from [facility], on midodrine for hypotension with HD. 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 Went to rehab, transferred back to [place] to [facility] for ongoing rehab closer to home. [facility] [place] [facility] and in [place]. His daughter Raquel is ICU/CABLE RESPOOLER (ramone currently) and is very involved. Problem List No problem list is available. History not documented History not documented Review of Systems: No shortness of breath. No fever. No edema. No nausea. No report of cramps. Pt still producing urine. UOP has increased per his report Exam: HEENT - PERRLA. No oral lesions. Lungs - Good respiratory effort. Clear. Heart - S1. S2. irregular, normal rate Abdomen - Soft and non distended. Edema - No edema. Medication List Medication Sig Start Date apixaban 5 mg tablet Take 1 tablet by mouth twice a day ascorbic acid (vitamin C) 500 mg capsule Cipro (ciprofloxacin hcl) 500 mg tablet hydrocodone-acetaminophen 5-325 mg tablet Take 1 tablet by mouth twice a day as needed for pain lansoprazole 30 mg tablet,disintegrat, delay rel Take 1 tablet by mouth once a day melatonin 3 mg tablet metoprolol tartrate 50 mg tablet Take 1 tablet by mouth twice a day midodrine 10 mg tablet Take 1 tablet by mouth three times a day as needed ramelteon 8 mg tablet senna (sennosides) 8.6 mg capsule Allergy List Allergen Reaction Reaction Severity Onset Date Penicillins Skin Rash~Skin Rash procaine Unknown Med list reviewed from [facility] Adequacy & Blood Pressure: spKt/V Gotch 1.8 (04/23/22) eKdrt/V 1.47 (04/23/22) spKt/V (Daugirdas II) 1.6300 (04/23/22) 1.3700 (04/16/22) BUN mg/dL 58 (05/23/22) 54 (05/21/22) 54 (05/19/22) 53 (05/14/22) 45 (05/07/22) UREA NITROGEN (MG/DL) IN SER/PLAS - POST DIALYSIS mg/dL 13 (05/21/22) 11 (04/23/22) 18 (04/16/22) URR % 76 (05/21/22) 74 (04/23/22) 69 (04/16/22) KT/V adequate. Meets prescribed frequency target. Hypotension avoided. Excessive weight gain avoided. Dry weight stable. Vascular Access: Type of access - Cath - Tunneled Planned access placement but he has declined for now. Will re-visit after 24hr urine results Anemia: HEMOGLOBIN (G/DL) IN BLOOD g/dL 10.4 (05/21/22) 10.2 (05/14/22) 10.5 (05/07/22) 10.3 (05/02/22) 11.0 (04/23/22) PLATELETS 1000/mcL 244 (05/21/22) 203 (04/23/22) 229 (04/16/22) IRON SATURATION % 31 (04/16/22) FERRITIN ng/mL 704 (04/23/22) 989 (04/16/22) Hemoglobin within target. Transferrin saturation within target. Supplemental iron not needed at this time. Labs today, will start iron/mircera protocol Nutrition: ALBUMIN (G/DL) g/dL 3.7 (05/21/22) 3.2 (04/23/22) 2.7 (04/16/22) Sodium mEq/L 142 (05/21/22) 138 (05/19/22) 138 (05/14/22) 143 (05/07/22) 143 (05/02/22) POTASSIUM (MMOL/L) IN SER/PLAS mEq/L 4.4 (05/21/22) 4.2 (05/19/22) 4.0 (05/14/22) 4.0 (05/07/22) 4.2 (05/02/22) BICARBONATE (CO2) mEq/L 29 (05/21/22) 26 (05/19/22) 28 (05/14/22) 28 (05/07/22) 26 (05/02/22) Albumin not adequate. Potassium controlled. Albumin improving, appetite improved Bone and Mineral: CALCIUM mg/dL 9.1 (05/21/22) 8.6 (05/19/22) 9.1 (05/02/22) 8.6 (04/23/22) 8.2 (04/16/22) CALCIUM (MG/DL) CORRECTED FOR ALBUMIN IN SER/PLAS mg/dL 9.3 (05/21/22) 9.2 (04/23/22) 9.2 (04/16/22) PHOSPHATE (MG/DL) IN SER/PLAS mg/dL 3.7 (05/21/22) 4.5 (04/23/22) 3.7 (04/16/22) CALCIUM PHOSPHORUS PRODUCT, COR 34 (05/21/22) 41 (04/23/22) 34 (04/16/22) IPTH pg/mL 121 (04/23/22) 108 (04/16/22) Phosphorus controlled. PTH is within target range. Impression and Plan: Patient stable - continue current treatment parameters. Patient discussed with nursing. Continue current dialysis No signs of further recovery and 24hr urine with low residual function but will repeat as possibly undercollected as discussed above AVG recommended, daughters helping convince him as well and he is considering. WIll send to [facility] as soon as he accepts Will keep DEJA for now, but likely ESRD next month if no recovery and if confirm with 24hr urine thatCrCl and UreaCl are still <10 Denilson Holly MD [ Signed And locked electronically On 05/28/2022 at 12:53:00 PM ] Transcribed: Denilson Holly ( 05/28/2022 ) documented in this encounter Plan of Treatment Not on filedocumented as of this encounter Visit Diagnoses Not on filedocumented in this encounter
--- OUTSIDE RECORDS SUMMARY | 2022-05-30 08:42 | XMS_ITS | Encounter Summary ---
:1940 Author Organization [facility] Address [address] [place] [address] Care Team Providers Name Role Phone Unavailable Primary Care Provider Unavailable Encounter Details Date Type Department Care Team Description 04/16/2022 Orders Only [facility] f Denilson Quinones MD [phone] [place] [address] [place], [place] [phone] (Wo rk) Social History Tobacco Use [...] and its performa nce characteristics determined by [facility]. It has not been cleared or approved [...] 04/17/2022 Unless otherwise specified, test(s) performed at: [facility], [address] [place] [address] PHOTO OPTICS TECHNICIAN: Henok Correa M.D. For any questions, please call customer service at FREQUENCY:MONTHLY Resulting Agency Comment Specimen source: Serum Denilson Holly MD LAB BLOOD ORDERABLES Performing Organization Address City/[facility] Code Phon e Number APS SPECTRA [facility] [...] above test result was obtained using Siemens Mobiplexaur XP chemiluminescent method. Results obtaine d with different assay methods or kits cannot be used interchangeably. Specimen (Source) Anatomical Collection Method Collection Time Re ceived Time Location / / Volume Laterality 04/16/2022 04/17/2022 9:14 AM CDT Narrative APS SPECTRA [facility] - 04/17/2022 Unless otherwise specified, test(s) performed at: [facility], [address] [place] [id number] PHOTO OPTICS TECHNICIAN: Henok Correa M.D. For any questions, please call customer service at FREQUENCY:MONTHLY Resulting Agency Comment Specimen source: Serum Denilson Holly MD LAB BLOOD ORDERABLES Performing Organization Address City/[facility] Code Phon e Number APS SPECTRA [facility] (ABNORMAL) Spectrae Chemistry (04/16/2022) P athologist Signature PTH 108 (H) 16 - 80 APS SPECTRA pg/mL [facility] Specimen (Source) Anatomical Collection Method Collection Time Re ceived Time Location / / Volume Laterality 04/16/2022 04/17/2022 9:16 AM CDT Narrative APS SPECTRA [facility] - 04/17/2022 Unless otherwise specified, test(s) performed at: [facility], [address] [place] [address] PHOTO OPTICS TECHNICIAN: Henok Correa M.D. For any questions, please call customer service at FREQUENCY:MONTHLY Resulting Agency Comment Specimen source: Plasma Denilson Holly MD LAB BLOOD ORDERABLES Performing Organization Address City/[facility] Code Phon e Number APS SPECTRA [facility] HD KINETICS (04/16/2022) P athologist Signature % Urea 69 65 - 80 % APS SPECTRA Reduction [facility] Specimen (Source) Anatomical Collection Method Collection Time Re ceived Time Location / / Volume Laterality 04/16/2022 04/17/2022 9:14 AM CDT Resulting Agency Comment Specimen source: Serum Denilson Holly MD LAB BLOOD ORDERABLES Performing Organization Address City/[facility]/ZIP Code Phon e Number APS SPECTRA [facility] POST CHEMISTRY (04/16/2022) P athologist Signature BUN Post 18 6 - 19 APS SPECTRA Dialysis mg/dL [facility] Specimen (Source) Anatomical Collection Method Collection Time Re ceived Time Location / / Volume Laterality 04/16/2022 04/17/2022 9:08 AM CDT Narrative APS SPECTRA [facility] - 04/17/2022 Unless otherwise specified, test(s) performed at: [facility], [address] [place] [address] PHOTO OPTICS TECHNICIAN: Henok Correa M.D. For any questions, please [...] 04/17/2022 Unless otherwise specified, test(s) performed at: [facility], [address] [place], [place] [id number] PHOTO OPTICS TECHNICIAN: Henok Correa M.D. For any questions, please call customer service at FREQUENCY:MONTHLY Resulting Agency Comment Specimen source: Serum Denilson Holly MD LAB BLOOD ORDERABLES Performing Organization Address City/State/ZIP Code Phon e Number APS SPECTRA [facility] GFR (04/16/2022) P athologist Signature eGFR CKD-EPI CR 28 mL/min APS SPECTRA 2020 [facility] Comment: [facility] has implemented the recommended eGFR calculation that [...] 04/17/2022 Unless otherwise specified, test(s) performed at: [facility], [address] [place] [address] PHOTO OPTICS TECHNICIAN: Henok Correa M.D. For any questions, please call customer service at FREQUENCY:MONTHLY Resulting Agency Comment Specimen source: Serum Denilson Holly MD LAB [id number] NSOLICITED RESULTS Performing Organization Address City/State/ZIP Code Phon e Number APS SPECTRA [facility] (ABNORMAL) HEMATOLOGY (04/16/2022) [facility] gist Method Time Signature WBC 7.73 4.80 [...] 04/17/2022 Unless otherwise specified, test(s) performed at: [facility], [address] [place] [address] PHOTO OPTICS TECHNICIAN: Henok Correa M.D. For any questions, please call customer service at FREQUENCY:MONTHLY Resulting Agency Comment Specimen source: Blood Denilson Holly MD LAB BLOOD ORDERABLES Performing Organization Address City/State/ZIP Code Phon e Number APS SPECTRA [facility] documented in this encounter Visit Diagnoses Not on filedocumented in this encounter
--- OUTSIDE RECORDS SUMMARY | 2022-05-30 08:42 | XMS_ITS | Encounter Summary ---
:1940 Author Organization [facility] Address [address] [place] [address] Care Team Providers Name Role Phone Unavailable Primary Care Provider Unavailable Encounter Details Date Type Department Care Team Description 05/28/2022 Orders Only [facility] O f Denilson Quinones MD [address] [place] [address] [place], [place] [phone] (Wo rk) Social History Tobacco Use Types Packs/Day Years Used Date Smoking Tobacco: Never Assessed Sex Assigned at Date Recorded Not on file documented as of this encounter Plan of Treatment Not on filedocumented as of this encounter Procedures Procedure Name Priority Date/Time Associated Diagnosis Comme nts GFR (HC) Routine 05/28/2022 Results for thi s procedure are in the resu lts section. HEMATOLOGY Routine 05/28/2022 Results for thi s procedure are in the resu lts section. CHEMISTRY Routine 05/28/2022 Results for thi s procedure are in the resu lts section. documented in this encounter Results (ABNORMAL) Spectrae Chemistry (05/28/2022) P athologist Signature BUN 54 (H) 6 [...] MD LAB BLOOD ORDERABLES Performing Organization Address City/[facility] Code Phon e Number APS SPECTRA [facility] GFR (05/28/2022) P athologist Signature eGFR CKD-EPI CR 30 mL/min APS SPECTRA 2020 [facility] Comment: [facility] has implemented the recommended eGFR calculation that [...] 05/29/2022 Unless otherwise specified, test(s) performed at: [facility], [address] [place] [address], [place] [address] COLOR MIXER: Raheem Malik M.D., Ph.D For any questions, please call customer service at FREQUENCY:OTHER Resulting Agency Comment Specimen source: Serum Denilson Holly MD LAB [id number] NSOLICITED RESULTS Performing Organization Address City/[facility] Code Phon e Number APS SPECTRA [facility] (ABNORMAL) HEMATOLOGY (05/28/2022) Analysis Performed At Patho logist Time Signature Hemoglobin 9.9 (L) 14.0 - APS SPECTRA 18.0 g/dL [facility] Hemoglobin x 3 29.7 (L) 42.0 - APS SPECTRA 54.0 % [facility] Specimen (Source) Anatomical Collection Method Collection Time Re ceived Time Location / / Volume Laterality 05/28/2022 05/29/2022 7:35 AM CDT Narrative APS SPECTRA [facility] - 05/29/2022 Unless otherwise specified, test(s) performed at: [facility], [address] [place] [address], [place] [address] COLOR MIXER: Raheem Malik M.D., Ph.D For any questions, please call customer service at FREQUENCY:OTHER Resulting Agency Comment Specimen source: Blood Denilson Holly MD LAB BLOOD ORDERABLES Performing Organization Address City/State/ZIP Code Phon e Number APS SPECTRA [facility] documented in this encounter Visit Diagnoses Not on filedocumented in this encounter
--- OUTSIDE RECORDS SUMMARY | 2022-05-30 08:42 | XMS_ITS | Encounter Summary ---
:1940 Author Organization [facility] Address [address] [place] [address] Care Team Providers Name Role Phone Unavailable Primary Care Provider Unavailable Encounter Details Date Type Department Care Team Description 05/02/2022 Orders Only [facility] O f Denilson Quinones MD [phone] [place] [address] [place], [place] [phone] (Wo rk) Social History Tobacco Use [...] 05/03/2022 Unless otherwise specified, test(s) performed at: [facility], [address] [place] [address] [facility] [place] [address] PASTEURIZING SUPERVISOR: Raheem Malik M.D., Ph.D For any [...] MD LAB BLOOD ORDERABLES Performing Organization Address City/[facility]/ZIP Code Phon e Number APS SPECTRA [facility] GFR (05/02/2022) P athologist Signature eGFR CKD-EPI CR 26 mL/min APS SPECTRA 2020 [facility] Comment: [facility] has implemented the recommended eGFR calculation that [...] 05/03/2022 Unless otherwise specified, test(s) performed at: [facility], [address] [place] [address] [facility] [place] [address] PASTEURIZING SUPERVISOR: Raheem Malik M.D., Ph.D For any questions, please call customer service at FREQUENCY:OTHER Resulting Agency Comment Specimen source: Serum Denilson Holly MD LAB [id number] NSOLICITED RESULTS Performing Organization Address City/State/ZIP Code Phon e Number APS SPECTRA [facility] documented in this encounter Visit Diagnoses Not on filedocumented in this encounter
--- OUTSIDE RECORDS SUMMARY | 2022-05-30 08:42 | XMS_ITS ---
:[address] [facility] [place] DOCUMENT DISCLAIMER The information in the [facility] Continuity of Care Document represents a summary [...] Characteristics Need Level ADL Type Relationship of weekend caregiver Requires some assistance Bathing Dressing Toileting Shopp [...] Sign Value Date / Time Blood Pressure-sitting 133/76 mmHg May 28, 2022 1 1:50 AM Heart Rate 76 beats per minute May 28, 2022 11:5 0 AM Respiratory Rate 16 breaths per minute May 28, 2022 11 :50 AM Temperature 97.0 deg. F May 28, 2022 11:5 0 AM Weight Vital Sign Value Date / Time Estimated Dry Weight 71.5 kg April 21, 2022 11:59 PM Pre-Dialysis 72.10 kg May 28, 2022 11:5 0 AM Post-Dialysis 72.10 kg May 28, 2022 11:5 0 AM Other Other Value Date / Time [...] g/dL; Female: 12.0-16.0 g/dL Platelets 244 1000/mcL 197-629 8341/mcL - May 21, 2022 YARIEL 2.3 % [...] May g/dL Females: 12.0 - 16.0 g/dL Hemoglobin x 3 29.7 % Male: 14.0 - 18.0 Low May 192021 g/dL; Female: 12.0-16.0 g/dL HGB 9.9 g/dL Males: 14.0 - 18.0 Low May g/dL Females: 12.0 - 16.0 g/dL Metabolic/Renal Result Type Result Value Relevant Reference Interpretation Date Range Creatinine, Serum 2.48 mg/dL 0.6-1.3 mg/dL High May 02, 2022 BUN 76 mg/dL 6-19 mg/dl High May 02, 2022 Sodium 143 mEq/L 136-145 mEq/L - May 02, 2022 BUN/Creat Ratio 30.6 - High May 02 Chloride 107 mEq/L 96-108 mEq/L - May 02, 2022 Potassium 4.2 mEq/L 3.5-5.1 mEq/L - May 02, 2022 Bicarbonate 26 mEq/L 22-29 mEq/L - May 02, 2022 Creatinine, Serum 2.18 mg/dL 0.6-1.3 mg/dL High May 07, 2022 BUN/Creat Ratio 20.6 - High May 07 BUN 45 mg/dL 6-19 [...] - May 14, 2022 BUN/Creat Ratio 20.5 - High May 14 2 Bicarbonate 26 mEq/L 22-29 mEq/L - May 19, 2022 BUN/Creat Ratio 21.0 08-07 High May 19 Sodium 138 mEq/L 136-145 mEq/L - May 19 2 Potassium 4.2 mEq/L 3.5-5.1 mEq/L - May 19 2 Chloride 102 mEq/L 96-108 mEq/L - May 19, 2022 Creatinine, Serum 2.57 mg/dL 0.6-1.3 mg/dL High May BUN 54 mg/dL 6-19 mg/dl High May 19, 2022 BUN, Post 13 mg/dL 6-19 mg/dL - May 21, 2022 URR, Calc 76 % 65 - 80% - May 21, 2022 BUN 54 mg/dL 6-19 mg/dl High May 21, 2022 Bicarbonate 29 mEq/L 22-29 mEq/L - May 21, 2022 Chloride 105 mEq/L 96-108 mEq/L - May 21, 2022 Potassium 4.4 mEq/L 3.5-5.1 mEq/L - May 21 2 Sodium 142 mEq/L 136-145 mEq/L - May 21 2 BUN/Creat Ratio 21.0 08-07May 21 Creatinine, Serum 2.57 mg/dL 0.6-1.3 mg/dL High May Urea Nitrogen, Urine, 348 mg/dL 12-20 g/24 hrs - 2021 Timed Creatinine Clearance, 4.5 mL/min Creatinine Low May 23, 2022 Urine Clearance, Normalized Male 94.0-122.0 mL/min Female 77.0-94.0 mL/min Creatinine, Serum 2.41 mg/dL 0.6-1.3 mg/dL High May BUN/Creat Ratio 24.1 08-07 High May 23 BUN 58 mg/dL 6-19 mg/dl High May 23, 2022 Creatinine, Serum 2.19 mg/dL 0.6-1.3 mg/dL High May BUN 54 mg/dL 6-19 mg/dl High May 28, 2022 BUN/Creat Ratio 24.7 10-20 High May 28 Chloride 103 mEq/L 96-108 mEq/L - May 28, 2022 Bicarbonate 26 mEq/L 22-29 mEq/L - May 28, 2022 Sodium 139 mEq/L 136-145 mEq/L - May 28 2 Potassium 4.4 mEq/L 3.5-5.1 mEq/L - May 28 2 HD Adequacy Result Type Result Value Relevant Reference Interpretation Date Range spKt/V (Daugirdas 1.66 No Reference range Normal 2021 II) provided eKt/V ([place]) 1.39 No Reference range Normal May provided Bone/Mineral Result Type Result Value Relevant Reference Interpretation Date Range Calcium, Total 9.1 mg/dL 8.4-10.2 mg/dL - May 02 Calcium, Total 8.6 mg/dL 8.4-10.2 mg/dL Low May 19, 2022 Magnesium 1.6 mg/dL 1.6-2.6 mg/dL - May 21 Corrected Ca x P 34 < 55 - May 21, 2022 Product Phosphorus 3.7 mg/dL 2.6-4.5 mg/dL - May 21 Calcium, Total 9.1 mg/dL 8.4-10.2 mg/dL - May 21, 2022 Ca x P Product 34 < 55 - May 21 Liver/Nutrition Result Type Result Value Relevant Reference Interpretation Date Range Glucose 95 mg/dL 70-100 mg/dL - May 02, 2022 (fasting) Glucose 85 mg/dL 70-100 mg/dL - May 19, 2022 (fasting) Albumin (BCG) 3.7 g/dL 3.5-5.2 g/dL - May 21 A/G Ratio 1.3 1.0-2.0 - May 21, 2022 Globulin (Calc) 2.9 g/dL 1.0 - 2.0 - May 21 Total Protein 6.6 g/dL 6.0-8.5 g/dL - May 21 Peritoneal Dialysis Testing Result Type Result Value Relevant Reference Interpretation Date Range Total Creatinine, 0.2 g/24 hr No Reference range Low 2021 Urine provided Total Urea 0.7 g/24 hr No Reference range Low [place] 05 , 2022 Nitrogen, Urine provided Creatinine, Urine 78.5 mg/dL No Reference range - Augu 2021 provided Urea Clearance, 0.8 mL/min No [...] Vitals (hr) (mL/min) Access Admin May Weight 71.20 Weight 71.40 03:01:00 360 [...] 98.0 deg. F Temperature 97.8 deg. F May Weight 72.10 Weight 72.10 03:03:00 360 2.0 K, 180nre Hemodial ysis-CV Catheter-Tunneled, Chest, Right Jugular Heparin Sodium (Porcine) 1,000 Units/mL Catheter Lock Arterial; 1600units,Arterial Red Port 10, kg kg 2.5 Ca, Optiflux Heparin S odium (Porcine) 1,000 Units/mL Catheter Lock Venous; 1600units,Venous Blue Port 2021 1.0 Mg, 100 Dextrose (N2251) Blood Pressure-sitting 163/84 mmHg Blood Pressure-sitting 13 3/76 mmHg Heart Rate 64 beats per minute Heart Rate 76 beats per minute Respiratory Rate 16 breaths per Respiratory Rate 16 breaths per minute minute Temperature 98.1 deg. F Temperature 97.0 deg. F
--- OUTSIDE RECORDS SUMMARY | 2022-05-30 08:43 | XMS_ITS | Encounter Summary ---
:1940 Author Organization [place] Address [facility] [place] [address] Care Team Providers Name Role Phone [facility] Provider [phone] Reason for Referral Diagnostic Imaging CT Scan - Closed Specialty Diagnoses / Procedures Referred By Contact Refer red To Contact Radiology. Diagnoses Thoracic aortic aneurysm (H) Juan Lewis MD Ct Scan Procedures CTA Chest Abdomen Pelvis w Contrast [address] [place] [address] [place] [address] Referral ID Status Reason Start Date Expiration Date Visits Requ ested Visits Authorized [id number] Closed 11/12/2018 11/12/2019 1 1 TRICAL APPLIANCE PREPARER Reason for Visit Diagnostic Imaging CT Scan - Closed Specialty Diagnoses / Procedures Referred By Contact Refer red To Contact Radiology. Diagnoses Thoracic aortic aneurysm (H) Juan Lewis MD Ct Scan Procedures CTA Chest Abdomen Pelvis w Contrast [address] [place] [address] [place] [address] Referral ID Status Reason Start Date Expiration Date Visits Requ ested Visits Authorized [id number] Closed 11/12/2018 11/12/2019 1 1 Encounter Details Date Type Department Care Team Description 11/26/2018 [facility] Non-Fv Credentialed Pro vider, Lab Thoracic aortic Encounter [facility] Butch Brown MD [address] [place] [id number] aneurysm (H) [address] [place] [address] Social [...] R esults for this PELVIS W CONTRAST ELECTRICAL APPLIANCE PREPARER aneurysm (H) procedure are in the results section. documented in this encounter Results CTA Chest Abdomen Pelvis w Contrast (11/26/2018 9:03 AM ELECTRICAL APPLIANCE PREPARER) Anatomical Region Laterality Modality Lower Extremity, SUBRAD IR PROCEDURE, UMP CT CTA, RAD Computed Tomography CT Specimen (Source) Anatomical Location Collection Method / Collectio n Time Received Time / Laterality Volume Impressions 11/26/2018 4:44 PM ELECTRICAL APPLIANCE PREPARER IMPRESSION: 1. New thoracic aortic endograft. Tandem areas of aneurysmal dilatation are relatively unchanged in s ize. No visible endoleak. Recommend annual surveillance. 2. Infrarenal abdominal aortic aneurysm measuring 4.6 x 4.6 cm, unchanged. 3. Somewhat irregular fluid collection i n left groin, likely postoperative seroma. Surrounding enlarg ed lymph nodes. TANNER STARKS MD Narrative 11/26/2018 4:44 PM ELECTRICAL APPLIANCE PREPARER CTA CHEST, ABDOMEN AND PELVIS WITH CONTRAST [...] ([id number]-[id number]) solution 80 Given 11/26/2018 8:30 AM ELECTRICAL APPLIANCE PREPARER 80 mLs mL 80 mL, Intravenous, ONCE, On Thu11/26/18 at 0830, For 1 dose Saline Flush Given 11/26/2018 8:30 AM ELECTRICAL APPLIANCE PREPARER 80 mLs Intravenous, 80 mL, ONCE, On [...] documented as of this encounter Care Teams Player Manager Relationship Specialty Start Date End Date [facility] [place] PCP - General 05/12/[address] [place] [address] documented as of this encounter
--- OUTSIDE RECORDS SUMMARY | 2022-05-30 08:43 | XMS_ITS | Encounter Summary ---
:1940 Author Organization [place] Address [address] [facility] [place] [address] Care Team Providers Name Role Phone Clinic, [facility] Primary Care Provider Reason for Visit Reason Onset Date Comments Clinic Care Coordination - Initial 05/17/2019 CT sc an Encounter Details Date Type Department Care Team Description 05/17/2019 Telephone [facility] Butch Brown Clinic Car e Coordination Vascular Clinic Félix Jay MD - Initial (CT scan) [address] [place] [address] [place] [id number] Social History Tobacco Use Types Packs/Day Years [...] this encounter Miscellaneous Notes Telephone Encounter - Cindy Taylor RN - 05/17/2019 10:[address] scan called reporting 1.8 creatine and 37 GFR which is a significant change from February. Discussed with Dr. Brown and verbal order to CT to please compete the scan without contrast. Cindy VEGAS, RN documented in this encounter Plan of Treatment Not on filedocumented as of this encounter Visit Diagnoses Not on filedocumented in this encounter Additional Health Concerns Infection Onset Date Last Indicated Resolved Time MRSAComment: Positive 02/17/11 and 09/22/12 11/05/2018 019 Negatives 05/03/14 (HE), 12/01/14 (HE) documented as of this encounter Care Teams Deputy County Clerk Relationship Specialty Start Date End Date [facility] PCP - General 05/12/[address] [place] [id number] documented as of this encounter
--- OUTSIDE RECORDS SUMMARY | 2022-05-30 08:43 | XMS_ITS | Encounter Summary ---
:1940 Author Organization [place] Address [facility] [place] [address] Care Team Providers Name Role Phone Clinic, [facility] Primary Care Provider [phone] Reason for Referral Diagnostic Imaging CT Scan (Routine) - Closed Specialty Diagnoses / Procedures Referred By Contact Refer red To Contact Radiology. 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 (H) Butch Brown MD Ct Scan [facility] Procedures CT Chest Abdomen Pelvis w/o Contrast [address] [place] [address] [place] [address] [address] Phone: Fax: Referral ID Status Reason Start Date Expiration Date Visits Requ ested Visits Authorized [id number] Closed 05/17/2019 05/16/2020 1 1 MBLER INSTALLER STRUCTURES Reason for Visit Diagnostic Imaging CT Scan (Routine) - Closed Specialty Diagnoses / Procedures Referred By Contact Refer red To Contact Radiology. 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 (H) Butch Brown MD Ct Scan Rs Procedures CT Chest Abdomen Pelvis w/o Contrast [address] [place] [address] [place] [address] [address] Phone: Fax: Referral ID Status Reason Start Date Expiration Date Visits Requ ested Visits Authorized [id number] Closed 05/17/2019 05/16/2020 1 1 Encounter Details Date Type Department Care Team Description 11/09/[address] [facility] Butch Brown aortic [facility] MD [place] aneurysm (AAA) [address] with out rupture (H) [address] [place] [address] Social History Tobacco Use Types Packs/Day [...] aortic Results for this PELVIS W/O CONTRAST ASSEMBLER INSTALLER STRUCTURES aneurysm (AAA) proced ure are in without rupture (H) the resu lts section. documented in this encounter Results CT Chest Abdomen Pelvis w/o Contrast (11/09/2019 11:25 AM ASSEMBLER INSTALLER STRUCTURES) Anatomical Region Laterality Modality Abdomen/Pelvis, SUBRAD CT BODY, UMP CT CHEST, UMP CT Computed Tomography ABDOMEN PELVIS, Chest, RAD CT Specimen (Source) Anatomical Location Collection Method / Collectio n Time Received Time / Laterality Volume Impressions 11/09/2019 3:17 PM ASSEMBLER INSTALLER STRUCTURES IMPRESSION: 1. 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 2. The aneurysm sac in the distal thorac ic aorta and an infrarenal abdominal aortic aneurysm have increased slightly in size since the previous exam. 3. Moderate age-indeterminate anterior c ompression of the T7 vertebral body is new since the previous exam. JON NICHOLS MD Narrative 11/09/2019 3:17 PM ASSEMBLER INSTALLER STRUCTURES CT CHEST, ABDOMEN AND PELVIS WITHOUT CONTRAST [...] documented as of this encounter Care Teams Sales Department Supervisor Relationship Specialty Start Date End Date [facility], [facility] PCP - General 05/12/[address] [place], [place] [id number] documented as of this encounter
--- OUTSIDE RECORDS SUMMARY | 2022-05-30 08:43 | XMS_ITS | Encounter Summary ---
:1940 Author Organization [place] Address [facility] [place] [address] Care Team Providers Name Role Phone Clinic, [facility] Primary Care Provider [phone] Reason for Visit Reason Comments RECHECK 6 month follow up visit. 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 Dx); Surgery Clinic Ramiro Loco MD [address] [place] [address] CKD (chronic kidney disease) stage 3, GF R 30-59 ml/min (H) [place] [address] [address] [facility] [address] [place] [address] Social History Tobacco Use Types [...] Comments Blood Pressure 128/76 11/09/2019 1:19 PM YEAST SUPERVISOR Pulse 59 11/09/2019 1:19 PM YEAST SUPERVISOR Temperature - - Respiratory Rate 16 11/09/2019 1:19 PM YEAST SUPERVISOR Oxygen Saturation 98% 11/09/2019 1:19 PM YEAST SUPERVISOR Inhaled Oxygen Concentration - - Weight 82.6 kg (182 lb) 11/09/2019 1:19 PM YEAST SUPERVISOR Height 167.6 cm (5' 6) 11/09/2019 1:19 PM YEAST SUPERVISOR Body Mass Index 29.38 11/09/2019 1:19 PM YEAST SUPERVISOR documented in this encounter Progress Notes Ramiro [...] Hendricks spent the last several months in [place]. Dr. Brown has left our practice. Mr. Hendricks presents to my vascular surgical office today to review a noncontrasted CT scan of the chest, abdomen, and pelvis and to once again discuss possible EVAR. He was accompanied by his daughter. He did have a fall while vacationing in [place] with multiple resultant rib fractures. Apart from [...] repair. I would absolutely refer him to [facility] to discuss those surgical options. Presently repair [...] in complete agreement with our plan. Total gilw-bq-kksy time was 40 minutes, greater than 50% spent providing counseling and education. David Loco MD T SUPERVISOR documented in this encounter Plan of Treatment [...] documented as of this encounter Care Teams Gun Stock Checker Relationship Specialty Start Date End Date [facility] PCP - General 05/12/[address] [place] [address] documented as of this encounter
--- OUTSIDE RECORDS SUMMARY | 2022-05-30 08:43 | XMS_ITS | Encounter Summary ---
:1940 Author Organization [place] Address [address] [place] [address] Care Team Providers Name Role Phone [facility], [facility] Primary Care Provider [phone] Encounter Details Date Type Department Care Team [...] documented as of this encounter Care Teams Cardroom Manager Relationship Specialty Start Date End Date [facility], [facility] PCP - General 05/12/[address] [place] [address] documented as of this encounter
--- OUTSIDE RECORDS SUMMARY | 2022-05-30 08:43 | XMS_ITS | Encounter Summary ---
:1940 Author Organization [place] Address [address] [facility] [place] [address] Care Team Providers Name Role Phone [facility], [facility] Primary Care Provider [phone] Reason for Referral Diagnostic Imaging CT Scan - Closed Specialty Diagnoses / Procedures Referred By Contact Refer red To Contact Radiology. Diagnoses Thoracic aortic aneurysm (H) Juan Lewis MD Ct Scan Procedures CTA Chest Abdomen Pelvis w Contrast [address] [place] [address] [place] [address] Referral ID Status Reason Start Date Expiration Date Visits Requ ested Visits Authorized [id number] Closed 11/12/2018 11/12/2019 1 1 ITIAN Encounter Details Date Type Department Care Team Description 11/12/2018 [facility] [place] Only [facility] Juan Lewis Thoracic aortic Vascular Clinic Félix Nava MD aneurysm (H) (Primary [address] Dx ) [address] [place] [address] [place] [address] Social History Tobacco Use Types Packs/Day Years [...] Abdomen Pelvis w Contrast (11/26/2018 9:03 AM DIETITIAN) Anatomical Region Laterality Modality Lower Extremity, SUBRAD IR PROCEDURE, UMP CT CTA, RAD Computed Tomography CT Specimen (Source) Anatomical Location Collection Method / Collectio n Time Received Time / Laterality Volume Impressions 11/26/2018 4:44 PM DIETITIAN IMPRESSION: 1. New thoracic aortic endograft. Tandem areas of aneurysmal dilatation are relatively unchanged in s ize. No visible endoleak. Recommend annual surveillance. 2. Infrarenal abdominal aortic aneurysm measuring 4.6 x 4.6 cm, unchanged. 3. Somewhat irregular fluid collection i n left groin, likely postoperative seroma. Surrounding enlarg ed lymph nodes. TANNER STARKS MD Narrative 11/26/2018 4:44 PM DIETITIAN CTA CHEST, ABDOMEN AND PELVIS WITH CONTRAST [...] documented as of this encounter Care Teams Soldering Machine Feeder Relationship Specialty Start Date End Date [facility], [facility] PCP - General 05/12/17 [address] [place] [address] documented as of this encounter
--- OUTSIDE RECORDS SUMMARY | 2022-05-30 08:43 | XMS_ITS | Encounter Summary ---
:1940 Author Organization [place] Address [address] [place] [address] Care Team Providers Name Role Phone [facility], [facility] Primary Care Provider [phone] Encounter Details Date Type Department Care Team [...] documented as of this encounter Care Teams Nursing Care Attendant Relationship Specialty Start Date End Date [facility], [facility] PCP - General 05/12/[address] [place] [address] documented as of this encounter
--- OUTSIDE RECORDS SUMMARY | 2022-05-30 08:43 | XMS_ITS | Encounter Summary ---
:1940 Author Organization [place] Address [address] [place] [address] Care Team Providers Name Role Phone Clinic, [facility] Primary Care Provider [phone] Reason for Visit Reason Onset Date Comments Forms 06/30/2019 Encounter Details Date Type Department Care Team Description 06/30/2019 Telephone [facility] oJn White, Forms [address] [phone] [place] [address] [phone] (Wo rk) Social History Tobacco Use Types [...] back and records faxed to them at [phone].Desire De Oliveira RN Telephone Encounter - Mallory Montgomery RN - 06/30/2019 1:04 PM CDT Flor over at [facility] called requesting patient records from his 06/02 [...] frustrated by the situation. Faxed form to [facility]. Flor voiced understanding. JOSE Lockwood-BSN-N [facility] [phone] documented in this encounter Plan of Treatment Not on filedocumented as of this encounter Visit Diagnoses Not on filedocumented in this encounter Additional Health Concerns Infection Onset Date Last Indicated Resolved Time MRSAComment: Positive 02/17/11 and 09/22/12 11/05/2018 019 Negatives 05/03/14 (HE), 12/01/14 (HE) documented as of this encounter Care Teams Regional Director Of Finance Relationship Specialty Start Date End Date [facility], [facility] PCP - General 05/12/[address] [place] [address] documented as of this encounter
--- OUTSIDE RECORDS SUMMARY | 2022-05-30 08:43 | XMS_ITS | Encounter Summary ---
:1940 Author Organization [place] Address [address] [place] [address]. [place] [address] Care Team Providers Name Role Phone [facility], [facility] Primary Care Provider [phone] Encounter Details Date Type Department Care Team Description 11/12/[address] [facility] Vascular Butch Brown MD Clinic [place] [address] [place] [address] [place] [address] (Wo rk) Social History Tobacco Use Types [...] that f/u with Dr. Brown. Aruna Simmons, Lead Investigator EMAKER documented in this encounter Plan of Treatment Not on filedocumented as of this encounter Visit Diagnoses Not on filedocumented in this encounter Additional Health Concerns Infection Onset Date Last Indicated Resolved Time MRSAComment: Positive 02/17/11 and 09/22/12 11/05/2018 019 Negatives 05/03/14 (HE), 12/01/14 (HE) documented as of this encounter Care Teams Mails Supervisor Relationship Specialty Start Date End Date [facility], [facility] PCP - General 05/12/[address] [place] [address] documented as of this encounter
--- OUTSIDE RECORDS SUMMARY | 2022-05-30 08:43 | XMS_ITS | Encounter Summary ---
:1940 Author Organization [place] Address [address] [place] [address] Care Team Providers Name Role Phone [facility], [facility] Primary Care Provider [phone] Encounter Details Date Type Department Care [...] documented as of this encounter Care Teams Bath Steward Relationship Specialty Start Date End Date [facility], [facility] PCP - General 05/12/[address] [place] [address] documented as of this encounter
--- OUTSIDE RECORDS SUMMARY | 2022-05-30 08:43 | XMS_ITS | Encounter Summary ---
:1940 Author Organization [place] Address [address] [place] [address]. [place] [address] Care Team Providers Name Role Phone Clinic, [facility] Primary Care Provider Reason for Visit Reason Onset Date Comments Appointment 05/28/2020 Encounter Details Date Type Department Care Team Description 05/28/2020 Telephone [facility] Vascular Ramiro Loco MD Appointment [facility] [place] [address] [place] [address] [place] [address] [phone] Social History Tobacco Use Types Packs/Day Years [...] 04/26/2020 and 05/28/2020 reminding patient to call [facility] & schedule an appointment per follow-up orders by Dr. Loco. These orders were expected to be completed by April,. No further attempts will be made to contact patient for scheduling per these follow-up orders. Carolyn Jerome Plastic Extruding Machine Operator [facility] Office: [phone] documented in this encounter Plan of Treatment Not on filedocumented as of this encounter Visit Diagnoses Not on filedocumented in this encounter Additional Health Concerns Infection Onset Date Last Indicated Resolved Time MRSAComment: Positive 02/17/11 and 09/22/12 11/05/2018 019 Negatives 05/03/14 (HE), 12/01/14 (HE) documented as of this encounter Care Teams Coding Clerk Relationship Specialty Start Date End Date [facility] [place] PCP - General 05/12/[address] [place] [address] documented as of this encounter
--- OUTSIDE RECORDS SUMMARY | 2022-05-30 08:43 | XMS_ITS | Encounter Summary ---
:1940 Author Organization [place] Address [address] [facility] [place] [place] [address] Care Team Providers Name Role Phone Clinic, [facility] Primary Care Provider [phone] Reason for Visit Reason Onset Date Comments Clinic Care Coordination - Follow-up 11/15/2019 Encounter Details Date Type Department Care Team Description 11/15/2019 Telephone [facility] Ramiro Loco Cli [facility] Félix juarez MD Coordination - [address] Follow-up 340 [address] [place] [address] [place] [address] (Wo rk) Social History Tobacco Use Types [...] 9:12 AM CST Order entered. SHASTA Winkler, RN-[facility] SE WRAPPER Telephone Encounter - Ro Taylor RN - 11/25/2019 2:34 PM CST Pt called back, left vm to discuss lab request (creat/gfr). I called pt back, pt reports labs [facility]24[facility]. I explained to pt he does not need another lab draw and we will work with these lab results. Pt notes understanding. Routing to Dr. Loco's nurse Leatha for placement of imaging order (to be done in 6 months) [address] Loco's request. SHASTA Sotomayor, JOSE [facility] SE WRAPPER Telephone Encounter - Ro Taylor RN - 11/25/2019 1:49 PM CST Pt called back , left vm to discuss labs ordered by Dr. Loco. SHASTA Sotomayor, JOSE [facility] SE WRAPPER Telephone Encounter - Ro Taylor RN - 11/15/2019 2:41 PM CST Creatinine check/lab order placed in [facility]. I called pt, left vm explaining he can get this checked at his convenience, upon results we will then order his follow up imaging and OV per Dr. Loco and to call if any questions. SHASTA Sotomayor, RN [facility] Vascular [place] SE WRAPPER Telephone Encounter - Ro Taylor RN - [...] either CTA or CT of chest/abd/pelvis. SHASTA Sotomayor, RN [facility] SE WRAPPER documented in this encounter Plan of [...] as of this encounter Care Teams Health Coach Relationship Specialty Start Date End Date [facility] [place] P[facility] - General 05/12/[address] [place] [address] documented as of this encounter
--- OUTSIDE RECORDS SUMMARY | 2022-05-30 08:43 | XMS_ITS | Encounter Summary ---
:1940 Author Organization [place] Address [address] [facility] [place] [address] Care Team Providers Name Role Phone Clinic, [facility] Primary Care Provider [phone] Reason for Visit Diagnostic Imaging CT Scan (Routine) - Closed Specialty Diagnoses / Procedures Referred By Contact Refer red To Contact Radiology. Diagnoses Thoracic aortic aneurysm (H) Butch Brown MD Ct Scan Procedures CT Chest Abdomen Pelvis w/o Contrast CTA Chest Abdomen Pelvis w Contrast [address] [place] [address] [place] [address] Referral ID Status Reason Start Date Expiration Date Visits Requ ested Visits Authorized [id number] Closed 11/26/2018 11/26/2019 1 1 Encounter Details Date Type Department Care Team Description 05/17/2019 Hospital Encounter [facility] [place] aneurysm (H) [address] [place] [address] [address] [place] [id number] Social History Tobacco Use Types Packs/Day Years [...] CDT 10:23 AM CDT Butch Brown MD [facility] POCT Performing Organization Address City/State/ZIP [...] as of this encounter Care Teams Beef Farmer Relationship Specialty Start Date End Date [facility] [place] P[facility] - General 05/12/[address] [place] [address] documented as of this encounter
--- OUTSIDE RECORDS SUMMARY | 2022-05-30 08:43 | XMS_ITS | Encounter Summary ---
:1940 Author Organization [place] Address [address] [place] [address] Care Team Providers Name Role Phone Clinic, [facility] Primary Care Provider [phone] Reason for Visit Reason Comments Skin Check FSE Encounter Details Date Type Department Care Team Description 06/02/2019 Office Visit [facility] Jon White of skin cancer (Primary Dx); Clinic Manlius MD Aubrey Lentigo; [place] [address] Seborrheic keratosis; [address] [address] Angioma of skin; [place], [place] [phone] Dermal nevus ; [phone] (Work) Basal cell carcinoma (BCC) of anterior c hest; [phone] Basal wilton l carcinoma (BCC) of sideburn [...] CDT Wound Care Instructions FOR SUPERFICIAL WOUNDS [facility] [phone] [facility] [phone] AFTER 24 HOURS YOU SHOULD REMOVE THE [...] file Gets together: Not on file Attends orthodox service: Not on file Active member of club or organization: Not on file Attends meetings of clubs or organizations: Not on file Relationship status: Not on file ??? Intimate partner violence: Fear of current or ex partner: Not on file Emotionally abused: Not on file Physically abused: Not on file Forced sexual activity: Not on file Other Topics Concern ??? Parent/sibling w/ CABG, PR or angioplasty before 65F 55M? Not Asked [...] 87.5 kg (193 lb). . JOSE Lockwood-BSN-N [facility] [phone] documented in this encounter Plan of Treatment [...] documented as of this encounter Care Teams Prevocational/Rehabilitation Counselor Relationship Specialty Start Date End Date Clinic, [facility] PCP - General 05/12/[address] [place] [address] documented as of this encounter
--- OUTSIDE RECORDS SUMMARY | 2022-05-30 08:43 | XMS_ITS | Encounter Summary ---
:1940 Author Organization [place] Address [address] [facility] [place] [address] Care Team Providers Name Role Phone Clinic, [facility] Primary Care Provider [phone] Encounter Details Date Type Department Care Team Description 11/15/2019 Orders Only [facility] Ramiro Loco Thoracic aortic Vascular Clinic Félix Garcia MD aneurysm without [address] rupt ure (H) (Primary [address] Dx) [place] [address] [place] [address]859[address] Social History Tobacco Use Types Packs/Day Years [...] encounter Results (ABNORMAL) Creatinine (12/08/2019 10:59 AM REVENUE LIAISON) Analysis Performed At Patho logist Time Signature Creatinine 1.36 (H) 0.66 - 12/09/2019 [place] 1.25 mg/dL 9:03 AM [facility] GFR Estimate 50 (L) >60 12/09/2019 [place] mL/min/{1. 9:03 AM [facility] 73_m2} [facility] Comment: Non GFR Calc Starting 10/05/2018, serum creatinine ba sed estimated GFR (eGFR) will be calculated using the Chronic Kidney Dise ase Epidemiology Collaboration (CKD-EPI) equation. GFR Estimate If 58 (L) >60 mL/min/{1.73_m2} 12/09/2019 9:03 AM [facility] Black [facility] Comment: GFR Calc Starting 10/05/2018, serum creatinine ba sed estimated GFR (eGFR) will be calculated using the Chronic Kidney Dise [facility] Epidemiology Collaboration (CKD-EPI) equation. Specimen Anatomical Collection Method Collection Time Receive d Time (Source) Location / / Volume Laterality Blood specimen 12/08/2019 10:59 0 (specimen) AM REVENUE LIAISON 11:04 AM REVENUE LIAISON Ramiro oLco MD LAB - BLOOD ORDERABLES Performing Organization Address City/State/ZIP Code Phon e Number [facility] [address] [place] [address] documented in this encounter Visit Diagnoses Diagnosis Thoracic aortic aneurysm without rupture (H) - Primary Thoracic aneurysm without mention of rup ture documented in this encounter Additional Health Concerns Infection Onset Date Last Indicated Resolved Time MRSAComment: Positive 02/17/11 and 09/22/12 11/05/2018 019 Negatives 05/03/14 (HE), 12/01/14 (HE) documented as of this encounter Care Teams Doctor Of Podiatric Medicine Relationship Specialty Start Date End Date Kehinde Portillo PCP - General 05/12/[address] [place] [address] documented as of this encounter
--- OUTSIDE RECORDS SUMMARY | 2022-05-30 08:43 | XMS_ITS | Encounter Summary ---
:1940 Author Organization [place] Address [address] [place] [address] Care Team Providers Name Role Phone Clinic, [facility] Primary Care Provider [phone] Encounter Details Date Type Department Care Team [...] with No / Unsure 09/23/2021 10:26 AM MACHINE ROPE MAKER someone who was confirmed or suspected to have Coronavirus / COVID-19? documented as of this encounter Plan of Treatment Not on filedocumented as of this encounter Visit Diagnoses Not on filedocumented in this encounter Additional Health Concerns Infection Onset Date Last Indicated Resolved Time MRSAComment: Positive 02/17/11 and 09/22/12 11/05/2018 019 Negatives 05/03/14 (HE), 12/01/14 (HE) documented as of this encounter Care Teams Rn Community Health Relationship Specialty Start Date End Date Clinic, [facility] [place] PCP - General 05/12/17 [address] [id number] documented as of this encounter
--- OUTSIDE RECORDS SUMMARY | 2022-05-30 08:43 | XMS_ITS | Encounter Summary ---
:1940 Author Organization [place] Address [address] [place] [address] Care Team Providers Name Role Phone [facility], [facility] Primary Care Provider [phone] Reason for Referral Diagnostic Imaging CT Scan (Routine) - Closed Specialty Diagnoses / Procedures Referred By Contact Refer red To Contact Radiology. 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 (H) Butch Brown MD Rh Ct Scan [facility] Procedures CT Chest Abdomen Pelvis w/o Contrast [address] [place] [address] [place] [address] [place] [address] Phone: Fax: Referral ID Status Reason Start Date Expiration Date Visits Requ ested Visits Authorized [id number] Closed 05/17/2019 05/16/2020 1 1 Encounter Details Date Type Department Care Team Description 05/17/2019 Orders Only [facility] Butch Brown Abdominal aortic Vascular Clinic Félix Jay MD aneurysm (AAA) without [address] ru pture (H) (Primary [address] Dx) [place] [address] [place] [address] [phone] Social History Tobacco Use Types Packs/Day Years [...] Abdomen Pelvis w/o Contrast (11/09/2019 11:25 AM COPY CENTER ASSOCIATE) Anatomical Region Laterality Modality Abdomen/Pelvis, SUBRAD CT BODY, UMP CT CHEST, UMP CT Computed Tomography ABDOMEN PELVIS, Chest, RAD CT Specimen (Source) Anatomical Location Collection Method / Collectio n Time Received Time / Laterality Volume Impressions 11/09/2019 3:17 PM COPY CENTER ASSOCIATE IMPRESSION: 1. 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 2. The aneurysm sac in the distal thorac ic aorta and an infrarenal abdominal aortic aneurysm have increased slightly in size since the previous exam. 3. Moderate age-indeterminate anterior c ompression of the T7 vertebral body is new since the previous exam. JON NICHOLS MD Narrative 11/09/2019 3:[address] CHEST, ABDOMEN AND PELVIS WITHOUT CONTRAST [...] documented as of this encounter Care Teams Oyster Cultivator Relationship Specialty Start Date End Date [facility], [facility] PCP - General 05/12/[address] [place] [address] documented as of this encounter
--- OUTSIDE RECORDS SUMMARY | 2022-05-30 08:43 | XMS_ITS | Encounter Summary ---
:1940 Author Organization [place] Address [address] [place] [address] Care Team Providers Name Role Phone Clinic, [facility] Primary Care Provider [phone] Encounter Details Date Type Department Care Team [...] as of this encounter Care Teams Research Associate Policy Relationship Specialty Start Date End Date [facility] PCP - General 05/12/17 [address] [phone] documented as of this encounter
--- OUTSIDE RECORDS SUMMARY | 2022-05-30 08:43 | XMS_ITS | Encounter Summary ---
:1940 Author Organization [place] Address [facility] [place] [address] Care Team Providers Name Role Phone Clinic, [facility] Primary Care Provider [phone] Encounter Details Date Type Department Care Team Description 11/26/2018 [facility] Butch Brown Thoracic a ortic Vascular Clinic Félix Jay MD aneurysm (H) (Primary [address] Dx ) [address] [place] [address] [place] [address] Social History Tobacco Use Types Packs/Day Years [...] documented as of this encounter Care Teams Coater Hand Relationship Specialty Start Date End Date [facility], [facility] PCP - General 05/12/[address] [place] [address] documented as of this encounter
--- OUTSIDE RECORDS SUMMARY | 2022-05-30 08:43 | XMS_ITS | Encounter Summary ---
:1940 Author Organization [place] Address [address] [place] [address] Care Team Providers Name Role Phone [facility] Primary Care Provider [phone] Encounter Details Date Type Department Care Team [...] documented as of this encounter Care Teams Automobile Or Truck Rental Dispatcher Relationship Specialty Start Date End Date [facility], [facility] PCP - General 05/12/[address] [place] [address] documented as of this encounter
--- OUTSIDE RECORDS SUMMARY | 2022-05-30 08:43 | XMS_ITS | Encounter Summary ---
:1940 Author Organization [place] Address [address] [facility] [place] [address] Care Team Providers Name Role Phone Clinic, [facility] Primary Care Provider [phone] Reason for Visit Reason Comments RECHECK 1st PO; THORACIC ENDOVASCULA R ANEURYSM REPAIR WITH MEDTRONIC GRAFT Encounter Details Date Type Department Care Team Description 11/26/2018 Office Visit [facility] Butch Brown Thoracic a ortic Vascular Clinic Félix Jay MD aneurysm without [address] ru pture (H) (Primary [address] Dx) [place] [address] [place] [address]6965 Social History Tobacco Use Types Packs/Day Years [...] Comments Blood Pressure 146/70 11/26/2018 10:47 AM DESK PENS ASSEMBLER Pulse 66 11/26/2018 10:47 AM DESK PENS ASSEMBLER Temperature - - Respiratory Rate - - Oxygen Saturation - - Inhaled Oxygen Concentration - - Weight 87.5 kg (193 lb) 11/26/2018 10:47 AM DESK PENS ASSEMBLER Height 167.6 cm (5' 6) 11/26/2018 10:47 AM DESK PENS ASSEMBLER Body Mass Index 31.15 11/26/2018 10:47 AM DESK PENS ASSEMBLER documented in this encounter Patient Instructions Patient InstructionsVon Landeros CMA - 11/26/2018 11:00 AM DESK PENS ASSEMBLER Patient to follow up with Primary Care provider regarding elevated blood pressure. PENS ASSEMBLER documented in this encounter Progress Notes Von [...] kg). Pain Score: Data Unavailable Von Landeros PENS ASSEMBLER Butch Brown MD - 11/26/2018 11:00 AM [...] 5.0-5.5 cm. Butch Brown MD Vascular Surgery PENS ASSEMBLER documented in this encounter Plan of Treatment [...] documented as of this encounter Care Teams Plug Machine Operator Relationship Specialty Start Date End Date [facility], [facility] PCP - General 05/12/[address] [place], [place] [phone] documented as of this encounter
--- OUTSIDE RECORDS SUMMARY | 2022-05-30 08:43 | XMS_ITS | Encounter Summary ---
:1940 Author Organization [place] Address [address] [place] [address] Care Team Providers Name Role Phone Clinic, [facility] Primary Care Provider [phone] Encounter Details Date Type Department Care Team Description 12/08/2019 Orders Only [facility] Tho racic aortic aneurysm [facility] without rupture (H) [address] [place] [address] Social History Tobacco Use [...] AM Thoracic aortic Resul ts for this MULTIGRAPH OPERATOR aneurysm without procedure a re in the rupture (H) results section . documented in this encounter Results (ABNORMAL) Creatinine (12/08/2019 10:59 AM MULTIGRAPH OPERATOR) Analysis Performed At Patho logist Time Signature Creatinine 1.36 (H) 0.66 - 12/09/2019 [place] 1.25 mg/dL 9:03 AM [facility] GFR Estimate 50 (L) >60 12/09/2019 [place] mL/min/{1. 9:03 AM [facility] 73_m2} [facility] Comment: Non GFR Calc Starting 10/05/2018, serum creatinine ba sed estimated GFR (eGFR) will be calculated using the Chronic Kidney Dise [place] [facility] [place] Epidemiology Collaboration (CKD-EPI) equation. GFR Estimate If 58 (L) >60 mL/min/{1.73_m2} 12/09/2019 9:03 AM [facility] Black [facility] Comment: GFR Calc Starting 10/05/2018, serum creatinine ba sed estimated GFR (eGFR) will be calculated using the Chronic Kidney Dise [facility] [place] [place] Epidemiology Collaboration (CKD-EPI) equation. Specimen Anatomical Collection Method Collection Time Receive d Time (Source) Location / / Volume Laterality Blood specimen 12/08/2019 10:59 0 (specimen) AM MULTIGRAPH OPERATOR 11:04 AM MULTIGRAPH OPERATOR Ramiro Loco MD LAB - BLOOD ORDERABLES Performing Organization Address City/State/ZIP Code Phon e Number [facility] [address] [place] [address] documented in this encounter Visit Diagnoses Diagnosis Thoracic aortic aneurysm without rupture (H) Thoracic aneurysm without mention of rup ture documented in this encounter Additional Health Concerns Infection Onset Date Last Indicated Resolved Time MRSAComment: Positive 02/17/11 and 09/22/12 11/05/2018 019 Negatives 05/03/14 (HE), 12/01/14 (HE) documented as of this encounter Care Teams Video Machines Mechanic Relationship Specialty Start Date End Date Kehinde Portillo PCP - General 05/12/17 [address] [place] [address] documented as of this encounter
--- OUTSIDE RECORDS SUMMARY | 2022-05-30 08:43 | XMS_ITS | Encounter Summary ---
:1940 Author Organization [place] Address [address] [facility] [address] Care Team Providers Name Role Phone Clinic, [facility] Primary Care Provider [phone] Reason for Visit Reason Comments RECHECK History of thoracic aortic a neurysm without rupture; 6 month follow up to 11-26-[address] Brown Encounter Details Date Type Department Care Team Description 05/17/2019 Office Visit [facility] Butch Brown Abdominal aortic aneurysm (AAA) without rupture (H) (Primary Dx); Vascular Clinic Félix Jay MD Thoracic aortic aneurysm without rupture (H) [address] [place] [address] [place] [address]228[address] Social History Tobacco Use Types Packs/Day Years [...] aneurysms. The patient plans to go to [place] this fall and is back sometime in [...] previously covered. I spent 15 minutes of vlug-rc-olmr time, > 50% spent counseling and coordinating [...] documented as of this encounter Care Teams Senior Climate Advisor Relationship Specialty Start Date End Date [facility] PCP - General 05/12/17 [address] [place] [address] documented as of this encounter
--- OUTSIDE RECORDS SUMMARY | 2022-05-30 08:43 | XMS_ITS | Encounter Summary ---
:1940 Author Organization [place] Address [address] [place] [address] Care Team Providers Name Role Phone [facility], [facility] Primary Care Provider [phone] Encounter Details Date Type Department Care Team Description 11/09/2019 Travel Social History Tobacco Use Types Packs/Day [...] documented as of this encounter Care Teams Anesthesiologist Relationship Specialty Start Date End Date [facility], [facility] PCP - General 05/12/[address] [place] [address] documented as of this encounter
--- OUTSIDE RECORDS SUMMARY | 2022-05-30 08:43 | XMS_ITS | Encounter Summary ---
:1940 Author Organization [place] Address [facility] [place] [address] Care Team Providers Name Role Phone Clinic, [facility] Primary Care Provider [phone] Reason for Visit Diagnostic Imaging CT Scan (Routine) - Closed Specialty Diagnoses / Procedures Referred By Contact Refer red To Contact Diagnoses Thoracic aortic aneurysm without rupture (H) Abdominal aortic aneurysm (AAA) without rupture (H) Ramiro Loco MD Procedures CT Chest Abdomen Pelvis w/o Contrast CTA Chest Abdomen Pelvis w Contrast [address] [place] [address] Referral ID Status Reason Start Date Expiration Date Visits Requ ested Visits Authorized [id number] Closed 11/29/2019 11/28/2020 1 1 Encounter Details Date Type Department Care Team Description 08/08/2021 Hospital Encounter [facility] Ramiro Loco oracic aortic aneurysm without rupture (H); [facility] Gisela Garcia MD Abdominal aortic aneurysm (AAA) without rupture (H) [address] [place] [address] [place] [address] [phone] Social History Tobacco Use Types Packs/Day Years [...] CT CHEST ABDOMEN PELVIS W/O CONTRAST LOCATION: [facility] DATE/TIME: 08/08/2021 4:20 PM INDICATION: history [...] CHEST ABDOMEN PELVIS W/O CONTRA ST LOCATION: [facility] DATE/TIME: 08/08/2021 4:20 PM INDICATION: history [...] 4.6 x 4.8 cm. NOE ONEILL DO Ramiro Loco MD IMG CT ORDERABLES (ABNORMAL) Creatinine [...] City/State/ZIP Code Phon [place] [phone] Care Lab [address] [...] documented as of this encounter Care Teams Steel Erector Relationship Specialty Start Date End Date Kehinde Portillofield PCP - General 05/12/[address] [place] [address] documented as of this encounter
--- OUTSIDE RECORDS SUMMARY | 2022-05-30 08:43 | XMS_ITS | Encounter Summary ---
:1940 Author Organization [place] Address [address] [place] [address] Care Team Providers Name Role Phone Clinic, [facility] Primary Care Provider [phone] Reason for Visit Reason Onset Date Comments Path Results 06/02/2019 Encounter Details Date Type Department Care Team Description 06/02/2019 [facility] Jon White, Path Results [phone] [place] [address] [phone] (Wo rk) Social History Tobacco Use Types [...] : MOHS Surgery with Dr. Jon White, Multicultural Internship to remove skin cancers. Thank you for allowing me to be involved in your health care and for choosing [facility]. If you have any questions or concerns please feel free to contact me at . Sincerely, Dr. Fernando White Telephone Encounter - Mallory Montgomery RN - 06/22/2019 9:06 AM CDT Called and LM for patient to call back in regards to scheduling x3 mohs appointments. ERMA LockwoodLaxmi [facility] [phone] Telephone Encounter - Mallory Montgomery RN - 06/17/2019 11:11 AM CDT Called and LM for patient to call back in regards to scheduling x3 mohs appointments. LENA Lockwood [facility] [phone] Telephone Encounter - Mallory Montgomery RN - 06/14/2019 10:15 AM CDT Called and LM for patient to call back in regards to scheduling x3 mohs appointments. LENA Lockwood [facility] [phone] Telephone Encounter - Mallory Montgomery RN - 06/13/2019 1:05 PM CDT Called and LM for patient to call back in regards to scheduling x3 mohs appointments. LENA Lockwood [facility] [phone] Telephone Encounter - Mallory Montgomery RN - 06/06/2019 4:22 PM CDT Called and spoke to patient. Educated patient on biopsy results- BCC x3. Educated patient on BCC andmohs. Patient stated his is currently in the hospital so he cannot schedule any appointments atthis time. Patient asked that I call him early next week. Patient voiced understanding. LENA Lockwood [facility] [phone] Telephone Encounter - Ryan Grady - 06/06/2019 3:44 PM CDT Please call patient on cell at [phone]. Telephone Encounter - Mallory Montgomery RN - 06/06/2019 8:40 AM CDT Called and LM for patient to call back in regards to biopsy results x3. LENA Lockwood [facility] [phone] Telephone Encounter - Mallory Montgomery RN - 06/03/2019 3:44 PM CDT Called and LM for patient to call back in regards to biopsy results x3. LENA Lockwood [facility] [phone] Telephone Encounter - Mallory Montgomery RN - [...] documented as of this encounter Care Teams Parks And Recreation Worker Relationship Specialty Start Date End Date [facility], [facility] PCP - General 05/12/[address] [place] [address] documented as of this encounter
--- OUTSIDE RECORDS SUMMARY | 2022-05-30 08:43 | XMS_ITS | Encounter Summary ---
:1940 Author Organization [place] Address [facility] [place] [address] Care Team Providers Name Role Phone Clinic, [facility] Primary Care Provider [phone] Reason for Visit Reason Onset Date Comments Pain 08/08/2021 Encounter Details Date Type Department Care Team Description 08/08/2021 Telephone [facility] Ramiro Loco MD Pain Clinic Tram [address] [place] [address] [place] [address] [phone] Social History Tobacco Use Types Packs/Day Years [...] Kim Neal - 08/20/2021 8:38 AM CDT [facility] Who is the name of the provider? Dr Gonzalez What is the location you see this provider at? [place] Reason for call: Returned RN's call - relayed message - Pt is scheduled for Dr Gonzalez on 08/29/21 Protein Scientist: Raquel Phone number to call: [phone] Additional Notes: Telephone Encounter - Ro Taylor RN - 08/19/2021 4:37 PM CDT Discussed with Dr. Gonzalez, pt may have office visit with Dr. Gonzalez at next available, no further imaging needed. SHASTA Sotomayor, JOSE [facility] [place] Office: [phone] Telephone Encounter - Cindy Taylor RN - 08/19/2021 4:29 PM CDT I called Raquel and PHIL stating we will discuss with Dr. Gonzalez and get back to her. Cindy VEGAS, JOSE [facility] Office: [phone] Telephone Encounter - Kim Neal - 08/19/2021 3:55 PM CDT [facility] Who is the name of the provider? Prev Dr Lewis, Dr Brown and Dr Loco Pt What is the location you see this provider at? [place] / [place] Reason for call: 1. Pt has not [...] see Dr Gonzalez for another opinion/follow up. Protein Scientist: Raquel Phone number to call: [phone] Additional Notes: Pt stated he is still [...] Pt will need oral hydration. Routing to maintenance scheduler to coordinate CTA c/a/p today. Please call pts daughter to coordinate [phone]. Then in person OV f/u with Dr. Loco at next nearest available. SHASTA Sotomayor, RN [facility] Office: [phone] Telephone Encounter - Ro Taylor RN - 08/08/2021 11:24 AM CDT Pt hx of TEVAR 11/09/[address] Brown. Pt following with Dr. Kwesi aMyo. Pts daughter reports pt had Sciatic injeciton [...] has had consult with Dr. Orosco at [facility], no further AAA surgery with Dr. Orosco. Reviewed with Rosario Hendricks MD. SHASTA Sotomayor, RN [facility] Office: [phone] Telephone Encounter - Lillian Uribe MA - [...] She would like a call back at [phone] documented in this encounter Plan of Treatment Not on filedocumented as of this encounter Visit Diagnoses Not on filedocumented in this encounter Additional Health Concerns Infection Onset Date Last Indicated Resolved Time MRSAComment: Positive 02/17/11 and 09/22/12 11/05/2018 019 Negatives 05/03/14 (HE), 12/01/14 (HE) documented as of this encounter Care Teams Electronic Scanner Operator Relationship Specialty Start Date End Date Clinic, [facility] PCP - General 05/12/[address] [place] [address] documented as of this encounter
--- OUTSIDE RECORDS SUMMARY | 2022-05-30 08:43 | XMS_ITS | Encounter Summary ---
:1940 Author Organization [place] Address [address] [facility] [place] [address] Care Team Providers Name Role Phone Clinic, [facility] Primary Care Provider [phone] Reason for Visit Reason Comments RECHECK *PREV [...] Team Description 09/23/2021 Office Visit [facility] Gallito Gonzalez [place] bdominal aortic Vascular Clinic MD Eliel aneurysm (TAAA) without [place] [address] rupture (H) (Primary Dx) [address] [place] [address] [place] [address] Social History Tobacco Use [...] with No / Unsure 09/23/2021 10:26 AM HYDRODYNAMICS TEACHER someone who was confirmed or suspected to have Coronavirus / COVID-19? documented as of this encounter Last Filed Vital Signs Vital Sign Reading Time Taken Comments Blood Pressure 161/78 09/23/2021 10:34 AM HYDRODYNAMICS TEACHER Pulse 57 09/23/2021 10:34 AM HYDRODYNAMICS TEACHER Temperature - - Respiratory Rate 16 09/23/2021 10:34 AM HYDRODYNAMICS TEACHER Oxygen Saturation 99% 09/23/2021 10:34 AM HYDRODYNAMICS TEACHER Inhaled Oxygen Concentration - - Weight 79.4 kg (175 lb) 09/23/2021 10:34 AM HYDRODYNAMICS TEACHER Height 167.6 cm (5' 6) 09/23/2021 10:34 AM HYDRODYNAMICS TEACHER Body Mass Index 28.25 09/23/2021 10:34 AM HYDRODYNAMICS TEACHER documented in this encounter Progress Notes Von Landeros CMA - 09/23/2021 10:30 AM CST [facility] Clinic Patient is here for a [...] and agency name: No Von Landeros CMA ODYNAMICS TEACHER Gallito Gonzalez MD - 09/23/2021 10:30 AM [...] I discussed the case with Dr. Orosco. 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
--- OUTSIDE RECORDS SUMMARY | 2022-05-30 08:44 | XMS_ITS | Encounter Summary ---
:1940 Author Organization [place] Address [facility] [place] [address] Care Team Providers Name Role Phone [facility], [facility] Primary Care Provider [phone] Encounter Details Date Type Department Care Team Description 10/21/2018 Telephone [facility] Sophie piper, Juan Nava MD Clinic Tram [address] [place] [address] [place] [address] [phone] Social History Tobacco Use Types Packs/Day Years [...] Telephone Encounter - Aruna Simmons Ann - 10/28/2018 1:02 PM CST Type of surgery: *OR51*DR. VÁSQUEZ/DR. GARVIN*THORACIC ENDOVASCULAR ANEURYSM REPAIR WITH [employer] GRAFT Location of surgery: [facility] Date and time of surgery: 11/05/18 @ 8:30AM Surgeon: DR. VÁSQUEZ AND DR. GARVIN Pre-Op Appt Date: PT TO SCHEDULE AT [facility] Post-Op Appt Date: PT TO SCHEDULE Packet sent out: MAILED 10/25/18 Pre-cert/Authorization completed: Yes Date: 10/28/18 I have notified IR, ICU and anesthesia about this case. I have verified that anesthesia agrees with 3 day Eliquis hold because pt will need spinal drain. Aruna Simmons, Benzene Still Utility Operator TO SPOTTER Telephone Encounter - Aruna Simmons - 10/25/2018 4:25 PM CST Spoke with daughter, Raquel, and she will have her dad come on 11/03/18 @ 9:00 to the [facility] lab for type and screen. I called the lab to make the appt for them. Aruna Simmons, Benzene Still Utility Operator TO SPOTTER Telephone Encounter - Sondra Johnson RN - [...] back to surgery scheduling. SHASTA Winkler, RN TO SPOTTER Telephone Encounter - Aruna Simmons - 10/21/2018 [...] prior to the upcoming surgery. Aruna Simmons, Benzene Still Utility Operator TO SPOTTER documented in this encounter Plan of Treatment Not on filedocumented as of this encounter Results (ABNORMAL) ABO/Rh type and screen (11/03/2018 9:10 AM POTATO SPOTTER) [facility] Method Time Signature Units Ordered 4 11/05/2018 [place] 1:30 PM [facility] ABO O 11/03/2018 [place] 10:15 AM [facility] RH(D) Pos [facility] Antibody Pos (A) 11/03/2018 [place] Screen 10:15 AM [facility] Test Valid [place] 11/03/2018 [place] Only At [facility] 9:31 AM [facility] Specimen 11/06/2018 11/03/2018 [place] Expires 9:31 AM [facility] Crossmatch Red Blood 11/03/2018 [place] Cells 9:31 AM [facility] Specimen Anatomical Collection Method Collection Time Receive d Time (Source) Location / / Volume Laterality Blood specimen 11/03/2018 9:10 AM 019 9:19 (specimen) POTATO SPOTTER AM POTATO SPOTTER Juan Vásquez MD LAB - BLOOD BANK TEST ORDER Performing Organization Address City/State/ZIP Code Phon e Number M [facility] [address] [place] [address] [facility] [address] [place] [address] [address], [facility] [phone] documented in this encounter Visit Diagnoses Diagnosis Abdominal aortic aneurysm (AAA) without rupture (H) - Primary Encounter for pre-operative laboratory t esting Preoperative examination, unspecified documented in this encounter Additional Health Concerns Infection Onset Date Last Indicated Resolved Time MRSAComment: Positive 02/17/11 and 09/22/12 11/05/2018 019 Negatives 05/03/14 (HE), 12/01/14 (HE) documented as of this encounter Care Teams Parking Meter Mechanic Relationship Specialty Start Date End Date [facility], [facility] PCP - General 05/12/17 [address] [place] [address] documented as of this encounter
--- OUTSIDE RECORDS SUMMARY | 2022-05-30 08:44 | XMS_ITS | Encounter Summary ---
:1940 Author Organization [place] Address [facility] [place] [address] Care Team Providers Name Role Phone Clinic, [facility] Primary Care Provider Encounter Details Date Type Department Care Team Description 11/05/2018 Anesthesia Event [facility] Bart Feliciano [place] MD Interventional [facility] Radiology [address] [place] [address] [place] [id number] [phone] Anesthesia Record Procedure Summary Procedure Name Responsible [...] documented as of this encounter Care Teams Acetylene Cylinder Packing Mixer Relationship Specialty Start Date End Date [facility], [facility] PCP - General 05/12/[address] [place] [address] documented as of this encounter
--- OUTSIDE RECORDS SUMMARY | 2022-05-30 08:44 | XMS_ITS | Encounter Summary ---
:1940 Author Organization [place] Address [address] [place] [address] Care Team Providers Name Role Phone Kehinde Portillo Primary Care Provider [phone] Encounter Details Date Type Department Care Team [...] on filedocumented in this encounter Care Teams Car And Yard Supervisor Relationship Specialty Start Date End [facility] - [facility] [place] [phone] documented as of this encounter
--- OUTSIDE RECORDS SUMMARY | 2022-05-30 08:44 | XMS_ITS | Encounter Summary ---
:1940 Author Organization [place] Address [address] [facility] [place] [address] Care Team Providers Name Role Phone Clinic, [facility] Primary Care Provider [phone] Reason for Visit Auth/Cert Specialty Diagnoses / Procedures Referred By Contact Refer red To Contact Surgery Diagnoses DESCENDING THORACIC AORTIC ANEURYSM Sh Periop Services Procedures ENDOVASCULAR REPAIR ANEURYSM THORACIC AORTIC [address] [place] [address] Phone: Referral ID Status Reason Start Date Expiration Date Visits Requ ested Visits Authorized [id number] 1 1 Encounter Details Date Type Department Care Team Description 11/03/2018 Hospital Encounter [facility] Juan Lewis En counter for [facility] MD Elijah pre-operative [address] [place] [address] [address] [place] [address] Social History Tobacco Use Types Packs/Day Years [...] AM Encounter for Resul ts for this MANAGER CLINICAL APPLICATIONS pre-operative procedure are in laboratory testing the resul ts section. BLOOD COMPONENT Routine 11/03/2018 9:10 AM Encounter for Resul ts for this MANAGER CLINICAL APPLICATIONS pre-operative procedure are in laboratory testing the resul ts section. BLOOD COMPONENT Routine 11/03/2018 9:10 AM Encounter for Resul ts for this MANAGER CLINICAL APPLICATIONS pre-operative procedure are in laboratory testing the resul ts section. BLOOD COMPONENT Routine 11/03/2018 9:10 AM Encounter for Resul ts for this MANAGER CLINICAL APPLICATIONS pre-operative procedure are in laboratory testing the resul ts section. ABO/RH TYPE AND Routine 11/03/2018 9:10 AM Encounter for Resul ts for this SCREEN MANAGER CLINICAL APPLICATIONS pre-operative procedure are in laboratory testing the resul ts section. documented in this encounter Results Blood component (11/03/2018 9:10 AM MANAGER CLINICAL APPLICATIONS) [facility] Method Time Signature Unit Number [id number] 11/05/2018 [place] 7:55 AM [facility] Blood Red Blood Cells 11/05/2018 [facility] Component LeukoReduced 7:55 AM [facility] 00 11/05/2018 [facility] Number 7:55 AM [facility] Status of No longer 11/07/2018 [facility] Unit available 3:[address] [facility] 11/07/2018 0300 [facility] Blood Product [id number] 11/05/2018 [facility] Code 7:55 AM [facility] Unit Status [facility] Specimen Anatomical Collection Method Collection Time Receive d Time (Source) Location / / Volume Laterality 11/03/2018 9:10 AM 9 9:19 MANAGER CLINICAL APPLICATIONS AM MANAGER CLINICAL APPLICATIONS Juan Lewis MD LABORATORY Performing Organization Address City/State/ZIP Code Phon e Number M [facility] [address], [place] [address] [facility] [address] [place] [address] [address], [facility] [address] [place], [place] [address], [facility] [phone] Blood component (11/03/2018 9:10 AM MANAGER CLINICAL APPLICATIONS) [facility] gist Method Time Signature Unit Number [id number] 11/05/2018 [facility] 7:55 AM [facility] Blood Red Blood 11/05/2018 [facility] Component Cells 7:55 AM [facility] Reduced Division 00 11/05/2018 [facility] Number 7:55 AM [facility] Status of No longer 11/07/2018 [facility] Unit available 3:[address] [facility] 11/07/2018 [facility]PITAL 0300 Blood Product [id number] 11/05/2018 [facility] Code 7:55 AM [facility] Unit Status [facility] Specimen Anatomical Collection Method Collection Time Receive d Time (Source) Location / / Volume Laterality 11/03/2018 9:10 AM 9 9:19 MANAGER CLINICAL APPLICATIONS AM MANAGER CLINICAL APPLICATIONS Juan Lewis MD LABORATORY Performing Organization Address City/State/ZIP Code Phon e Number M [facility] [address], [place] [address] [place] [address] [place] [address], [facility] [address] [place], [place] [address], [facility] [phone] Blood component (11/03/2018 9:10 AM MANAGER CLINICAL APPLICATIONS) [facility] Method Time Signature Unit Number [id number] 11/03/2018 [facility] 10:39 AM [facility] Blood Red Blood 11/03/2018 [facility] Component Cells 10:39 AM [facility] Reduced Division 00 11/03/2018 [facility] Number 10:39 AM [facility] Status of No longer 11/07/2018 [facility] Unit available 3:[address] [facility] 11/07/2018 [facility]OSPITAL 0300 Blood Product [id number] 11/03/2018 [facility] Code 10:39 AM [facility] Unit Status [facility] Specimen Anatomical Collection Method Collection Time Receive d Time (Source) Location / / Volume Laterality 11/03/2018 9:10 AM 9 9:19 MANAGER CLINICAL APPLICATIONS AM MANAGER CLINICAL APPLICATIONS Juan Lewis MD LABORATORY Performing Organization Address City/State/ZIP Code Phon e Number M [facility] [address], [place] [address] [facility] [address] [place] [address], [facility] [address] [place], [place] [address], [facility] [phone] Blood component (11/03/2018 9:10 AM MANAGER CLINICAL APPLICATIONS) [facility] [employer] Method Time Signature Unit Number [id number] 11/03/2018 [facility] 10:39 AM [facility] Blood Red Blood 11/03/2018 [facility] Component Cells 10:39 AM [facility] Reduced Division 00 11/03/2018 [facility] Number 10:39 AM [facility] Status of No longer 11/07/2018 [facility] Unit available 3:[address] [facility] 11/07/2018 [facility]OSPITAL 0300 Blood Product [id number] 11/03/2018 [facility] Code 10:39 AM [facility] Unit Status [facility] Specimen Anatomical Collection Method Collection Time Receive d Time (Source) Location / / Volume Laterality 11/03/2018 9:10 AM 9 9:19 MANAGER CLINICAL APPLICATIONS AM MANAGER CLINICAL APPLICATIONS Juan Lewis MD LABORATORY Performing Organization Address City/State/ZIP Code Phon e Number M [facility] [address], [place] [address] [facility] [address] [place] [address], [facility] [address] [place], [place] [address], [facility] [phone] (ABNORMAL) ABO/Rh type and screen (11/03/2018 9:10 AM MANAGER CLINICAL APPLICATIONS) [facility] [employer] Method Time Signature Units Ordered 4 11/05/2018 [facility] 1:30 PM [facility] ABO O 11/03/2018 [facility] 10:15 AM [facility] RH(D) Pos [facility] Antibody Pos (A) 11/03/2018 [facility] Screen 10:15 AM [facility] Test Valid [place] 11/03/2018 [place] Only At [facility] 9:31 AM [facility] Specimen 11/06/2018 11/03/2018 [place] Expires 9:31 AM [facility] Crossmatch Red Blood 11/03/2018 [place] Cells 9:31 AM [facility] Specimen Anatomical Collection Method Collection Time Receive d Time (Source) Location / / Volume Laterality Blood specimen 11/03/2018 9:10 AM 019 9:19 (specimen) MANAGER CLINICAL APPLICATIONS AM MANAGER CLINICAL APPLICATIONS Juan Lewis MD LAB - BLOOD BANK TEST ORDER Performing Organization Address City/State/ZIP Code Phon e Number M [facility] [address] [place] [address] [facility] [address] [place] [address] [address], [facility] [phone] documented in this encounter Visit Diagnoses Diagnosis Encounter for pre-operative laboratory t esting Preoperative examination, unspecified documented in this encounter Care Teams Slot Machine Key Person Relationship Specialty Start Date End Date Clinic, [facility] PCP - General 05/12/[address] [place] [address] documented as of this encounter
--- OUTSIDE RECORDS SUMMARY | 2022-05-30 08:44 | XMS_ITS | Encounter Summary ---
:1940 Author Organization [place] Address [address] [place] [address] Care Team Providers Name Role Phone Clinic, [facility] Primary Care Provider [phone] Reason for Visit Surgical Procedure Inpatient (Routine) - Closed Specialty Diagnoses / Procedures Referred By Contact Refer red To Contact Vascular Surgery / Diagnoses DESCENDING THORACIC AORTIC ANEURYSM Juan Vásquez Brett Surgery Procedures *OR51*DR. VÁSQUEZ/DR. GARVIN*THORACIC ENDOVASCULAR ANEURYSM REPAIR WITH [employer] GRAFT MD Pierre Nava MD [address] [place] [address] [place] [address] Fax: Referral ID Status Reason Start Date Expiration Date Visits Requ ested Visits Authorized [id number] Closed 11/05/2018 11/05/2019 1 1 Encounter Details Date Type Department Care Team Description 11/05/2018 Office Visit SX SURGERY CASES Butch Garvin MD [address] [place] [address] Juan Vásquez MD [address] [place] [id number] Fellow, Sh Surg Cons Social History Tobacco [...] documented as of this encounter Care Teams Lean Process Deployment Consultant Relationship Specialty Start Date End Date [facility] PCP - General 05/12/17 [address] [place] [address] documented as of this encounter
--- OUTSIDE RECORDS SUMMARY | 2022-05-30 08:44 | XMS_ITS | Encounter Summary ---
:1940 Author Organization [facility] [place] Address [address] [facility] [address] Care Team Providers Name Role Phone Clinic, [facility] Primary Care Provider [phone] Reason for Visit Auth/Cert Specialty Diagnoses / Procedures Referred By Contact Refer red To Contact Surgery Diagnoses DESCENDING THORACIC AORTIC ANEURYSM Sh Periop Services Procedures ENDOVASCULAR REPAIR ANEURYSM THORACIC AORTIC [address] [place] [address] Phone: Referral ID Status Reason Start Date Expiration Date Visits Requ ested Visits Authorized [id number] 1 1 Encounter Details Date Type Department Care Team Description 11/05/2018 Anesthesia Event [facility] Fela Conrad PeriOP Ser vices [facility]rade [address], [address] [facility]ISTS [place] [phone] [phone] [place] [id number] (Wo rk) Anesthesia Record Procedure Summary Procedure [...] with oral Ivon Aguilar airway; Ease of COP[employer] OFFICER Intubation: Easy; Airway Size: 8; Cuffed; Oral; Blade Type: Glidescope; Blade Size: 4; Place by: Ryan Whitmorezer; Insertion Attempts: 1; Secured at (cm)to lip: 23 cm; Breath Sounds: Equal, clear and bilateral; End Tidal CO2: Present; Dentition: Intact, Unchanged; Grade View of Cords: 1; Airway Adjuncts: [place] scope Left Groin Interventional #1; 09/28/18; 1500 [...] Fela Conrad November 05, 2018 3:25 PM PULLER Anesthesia Procedure Notes - Fela Conrad - 11/05/2018 3:24 PM MEAT PULLER Associated Order(s): Central line catheter placement CENTRAL [...] flushed: Yes Comments: Central Line No complications. PULLER Anesthesia Procedure Notes - Fela Conrad - 11/05/2018 3:23 PM MEAT PULLER Associated Order(s): A Line Catheter Placement ARTERIAL [...] waveform: Yes Comments: Arterial Line No complications PULLER Anesthesia Preprocedure Evaluation - Fela Conrad - [...] and alternatives discussed with: Patient.. Fela Conrad PULLER documented in this encounter Miscellaneous Notes Anesthesia [...] APRN CRNA November 05, 2018 12:44 PM PULLER documented in this encounter Plan of Treatment Not on filedocumented as of this encounter Procedures Procedure Name Priority Date/Time Associated Diagnosis Comme nts FV AN FL PA CENTRAL Routine 11/05/2018 3:24 PM MEAT PULLER LINE CATHETER PROCEDURE Procedure Note - Dariel [...] LINE CATHETER PLACEMENT Routine 11/05/2018 3:23 PM MEAT PULLER Procedure Note - Dariel Conrad - 11/05/2018 [...] clindamycin (CLEOCIN) infusion Given 11/05/2018 10:28 AM MEAT PULLER 900 mg Routine, PRN, Starting on Thu11/05/18 at 1028, Anesthesia Intra-op dexamethasone (DECADRON) injection Given 11/05/2018 10:25 AM MEAT PULLER 4 mg PRN, Administer over 1 Minutes, Starting on Thu11/05/18 at 1025, Anesthesia Intra-op ePHEDrine injection Given 11/05/2018 10:55 AM MEAT PULLER 10 mg PRN, Starting on Thu11/05/18 at 1025, Anesthesia Intra-op Given 11/05/2018 10:38 AM MEAT PULLER 5 mg Given 11/05/2018 10:25 AM MEAT PULLER 5 mg fentaNYL (PF) (SUBLIMAZE) injection Given 11/05/2018 11:48 AM MEAT PULLER 50 mcg PRN, Administer over 3-5 Minutes, Starting on Thu11/05/18 at 1010, Anesthesia Intra-op Given 11/05/2018 11:17 AM MEAT PULLER 50 mcg Given 11/05/2018 10:10 AM MEAT PULLER 100 mcg glycopyrrolate (ROBINUL) injection Given 11/05/2018 12:09 PM MEAT PULLER 0.2 mg PRN, Administer over 1-2 Minutes, Starting on Thu11/05/18 at 1055, Anesthesia Intra-op Given 11/05/2018 12:07 PM MEAT PULLER 0.4 mg Given 11/05/2018 10:55 AM MEAT PULLER 0.2 mg heparin (porcine) injection Given 11/05/2018 10:59 AM MEAT PULLER 7,000 Units PRN, Starting on Thu11/05/18 at 1059, Anesthesia Intra-op lactated ringers infusion New Bag 11/05/2018 7:30 AM MEAT PULLER Intravenous, CONTINUOUS PRN, Anesthesia Intra-op, Starting on Thu11/05/18 at 0957, Until Thu11/05/18 at 1244 lactated ringers infusion New Bag 11/05/2018 9:57 AM MEAT PULLER CONTINUOUS PRN, Anesthesia Intra-op, Starting on Thu11/05/18 at 0730, Until Thu11/05/18 at 1244 New Bag 11/05/2018 7:30 AM MEAT PULLER lidocaine 2% injection (MDV) Given 11/05/2018 10:14 AM MEAT PULLER 80 mg PRN, Starting on Thu11/05/18 at 1014, Anesthesia Intra-op neostigmine (PROSTIGMINE) injection Given 11/05/2018 12:09 PM MEAT PULLER 2 mg Intravenous, PRN, Starting on Thu11/05/18 at 1207, Anesthesia Intra-op Given 11/05/2018 12:07 PM MEAT PULLER 2 mg nitroGLYcerin 25 mg in D5W 250 mL infusi on Given 11/05/2018 12:39 PM MEAT PULLER 10 mcg PRN, Starting on Thu11/05/18 at 1113, Anesthesia Intra-op Given 11/05/2018 12:38 PM MEAT PULLER 15 mcg Given 11/05/2018 11:15 AM MEAT PULLER 10 mcg ondansetron (ZOFRAN) injection Given 11/05/2018 12:07 PM MEAT PULLER 4 mg PRN, Administer over 2-5 Minutes, Starting on Thu11/05/18 at 1207, Anesthesia Intra-op phenylephrine (CHRISTINE-SYNEPHRINE) injection Bolus 11/05/2018 11:23 AM MEAT PULLER 50 mcg CONTINUOUS PRN, Starting on Thu11/05/18 at 1120, Anesthesia Intra-op New Bag 11/05/2018 11:20 AM MEAT PULLER 50 mcg phenylephrine 0.2 mg/mL Restarted 11/05/2018 11:39 AM 0.2 mcg/kg/min 5.06 mL/hr (mcg/kg/min) drip MEAT PULLER CONTINUOUS PRN, Starting on Thu11/05/18 at 1024, Anesthesia Intra-op Rate/Dose Change 11/05/2018 11:27 AM MEAT PULLER 0.2 mcg/kg/min 5.06 mL/hr Restarted 11/05/2018 11:20 AM MEAT PULLER 0.3 mcg/kg/min 7.59 mL/hr propofol (DIPRIVAN) injection 10 mg/mL v ial Given 11/05/2018 11:17 AM MEAT PULLER 30 mg PRN, Starting on Thu11/05/18 at 1014, Anesthesia Intra-op Given 11/05/2018 10:14 AM MEAT PULLER 170 mg rocuronium (ZEMURON) injection Given 11/05/2018 10:15 AM MEAT PULLER 50 mg PRN, Starting on Thu11/05/18 at 1015, Anesthesia Intra-op sodium chloride 0.9% infusion New Bag 11/05/2018 9:57 AM MEAT PULLER CONTINUOUS PRN, Anesthesia Intra-op, Starting on Thu11/05/18 at 0957, Until Thu11/05/18 at 1244 vecuronium (NORCURON) injection Given 11/05/2018 11:23 AM MEAT PULLER 1 mg PRN, Starting on Thu11/05/18 at 1031, Anesthesia Intra-op Given 11/05/2018 10:31 AM MEAT PULLER 2 mg documented in this encounter Additional Health Concerns Infection Onset Date Last Indicated Resolved Time MRSAComment: Positive 02/17/11 and 09/22/12 11/05/2018 019 Negatives 05/03/14 (HE), 12/01/14 (HE) documented as of this encounter Care Teams Registered Land Surveyor Relationship Specialty Start Date End Date [facility], [facility] PCP - General 05/12/[address] [place], [place] [id number] documented as of this encounter
--- OUTSIDE RECORDS SUMMARY | 2022-05-30 08:44 | XMS_ITS | Encounter Summary ---
:1940 Author Organization [place] Address [address] [place] [id number] Care Team Providers Name Role Phone [facility], [facility] Primary Care Provider [phone] Encounter Details Date Type Department Care Team [...] documented as of this encounter Care Teams Vp Marketing Relationship Specialty Start Date End Date [facility], [facility] PCP - General 05/12/[address] [place] [id number] documented as of this encounter
--- OUTSIDE RECORDS SUMMARY | 2022-05-30 08:44 | XMS_ITS | Encounter Summary ---
:1940 Author Organization [place] [facility] [place] [address] Care Team Providers Name Role Phone Clinic, [facility] Primary Care Provider [phone] Reason for Referral Therapeutic Imaging/IR - Closed Specialty Diagnoses / Procedures Referred By Contact Refer red To Contact Diagnoses Descending thoracic aortic aneurysm (H) Juan Lewis MD Procedures IR Thoracic Endovascular Stent Graft [address] [place] [address] Referral ID Status Reason Start Date Expiration Date Visits Requ ested Visits Authorized [id number] Closed 10/28/2018 10/28/2019 1 1 PRESS OPERATOR Reason for Visit Auth/Cert Specialty Diagnoses / Procedures Referred By Contact Refer red To Contact Surgery Diagnoses DESCENDING THORACIC AORTIC ANEURYSM Sh Periop Services Procedures ENDOVASCULAR REPAIR ANEURYSM THORACIC AORTIC [address] [place] [address] Phone: Referral ID Status Reason Start Date Expiration Date Visits Requ ested Visits Authorized [id number] 1 1 Encounter Details Date Type Department Care Team Description 11/05/2018 - Hospital Encounter [facility] Elizabeth Lewis MD [address] [place] [id number] Thoracic aortic aneurysm without rupture (H) (Primary Dx); 11/09/2018 Gallito Sommers MD [address] [place] [id number] Descending thoracic aortic aneurysm (H) Intermediate Care Butch Brown MD [address] [place] [id number] [address] [phone] Social History Tobacco Use [...] Comments Blood Pressure 158/88 11/09/2018 8:28 AM BELT PRESS OPERATOR Pulse 100 11/09/2018 5:00 AM BELT PRESS OPERATOR Temperature 36.6 ??C (97.9 ??F) 11/09/2018 7:31 AM BELT PRESS OPERATOR Respiratory Rate 22 11/09/2018 8:00 AM BELT PRESS OPERATOR Oxygen Saturation 93% 11/09/2018 5:00 AM BELT PRESS OPERATOR Inhaled Oxygen Concentration - - Weight 87.3 kg (192 lb 7.4 oz) 11/09/2018 6:39 AM BELT PRESS OPERATOR Height 167.6 cm (5' 6) 11/05/2018 6:27 AM BELT PRESS OPERATOR Body Mass Index 31.06 11/05/2018 6:27 AM BELT PRESS OPERATOR documented in this encounter Discharge Summaries Bessy Mccray MD - 11/09/2018 10:56 AM CST Physician Discharge Summary Patient ID: Speedy Hendricks [id number] 78 year old 1940 Admit date: 11/05/2018 [...] an oral diet. He was discharged to [facility] on POD#4 in stable condition. Consults: [...] to. Signed: Bessy Mccray 11/09/2018 10:56 AM PRESS OPERATOR Associated attestation - Juan Lewis MD - 11/11/2018 3:10 PM BELT PRESS OPERATOR Physician Attestation I, Juan Lewis, have reviewed [...] Traylor RN - 11/09/2018 11:47 AM CST PRESS OPERATOR AttachmentsThe following attachments cannot be sent through Care Everywhere.(S) TREATING A THORACIC AORTIC ANEURYSM (TAA): ENDOVASCULAR GRAFT (BULGARIAN) documented in this encounter Medications at Time [...] home with family via car.All questions answered. PRESS OPERATOR Gurwinder Godoy MD - 11/09/2018 12:[address] [facility] Vascular Medicine Progress Note Date of Service (when I saw the patient): 11/09/2018 Physician Supervisory Attestation: I have reviewed and discussed with the physician compounding assistant their history, physical and plan and independently [...] Discussed with vascular surgery service. Gurwinder Godoy MD,[facility] Vascular Medicine service 11/09/2018 Assessment & Plan [...] Rate: 93 Resp: 22 SpO2: 93 % [id number]: None (Room air) Vitals: 11/06/18 0211 11/07/18 [...] cervical lymphadenopathy and no supraclavicular lymphadenopathy. Genitourinary: Chpaman in place Skin: surgical site looks good [...] = values in this interval not displayed. PRESS OPERATOR Bessy Mccray MD - 11/09/2018 7:36 AM [...] Bessy Martinez MD Vascular Surgery Fellow Pager PRESS OPERATOR Associated attestation - Butch Brown MD - 11/16/2018 9:50 AM BELT PRESS OPERATOR I was involved with the assessment and plan, and I agree with the findings and plan of care as documented in the fellow's note. MD Wilfredo Castillo Carley, JOSE - 11/08/2018 6:35 PM CST Pt arrived to station 33 @ 1820 PRESS OPERATOR Aura Crooks RN - 11/08/2018 5:05 PM CST Pt had drained removed this AM. Draining moderate amount- MDA aware. SR. BP wnl- gave hydralazine x1prn. Chapman to be removed prior to transfer. Lines out and hemostasis achieved. Up to chair- tolerated well, SBA. Frequent neuros- wnl. Will call report to [facility] and will transfer at p. PRESS OPERATOR Dimas Chapman MD - 11/08/2018 12:[address] [facility] Vascular Medicine Progress Note Date of Service [...] -- AST 19 -- -- -- -- PRESS OPERATOR Bessy Mccray MD - 11/08/2018 8:18 AM [...] Bessy Martinez MD Vascular Surgery Fellow Pager PRESS OPERATOR Associated attestation - Butch Brown MD - 11/16/2018 3:00 PM BELT PRESS OPERATOR I was involved with the assessment and [...] please contact primary service first. Kaleb Rodriguez PRESS OPERATOR Kristy Castañeda RN - 11/08/2018 6:50 AM [...] any neuro changes. ?? Zakia Tobin MD. PRESS OPERATOR Bart Feliciano MD - 11/07/2018 3:39 PM [...] drain tubing following unclamping. [place]ts [place] [id number] down from 100s yesterday. At this time, [...] with any neuro changes. Bart Feliciano MD. PRESS OPERATOR Christina Burrell MD - 11/07/2018 3:03 PM [...] Christina Burrell MD Vascular Surgery Fellow Pgr PRESS OPERATOR Bishop Tran MD - 11/07/2018 11:55 AM CST Assurance Services Manager Health Care: S: Mild groin pain this morning, but [...] Dr. Staley of vascular medicine at bedside. Assurance Services Manager Health Care service will sign off for now. Please re-consult as needed. PRESS OPERATOR Gurwinder Godoy MD - 11/07/2018 9:[address] [facility] Vascular Medicine Progress Note Date of Service [...] If any change in neuro status contact [facility] surgery first and consider neurocritical care [...] good Reviewed last night events, discussed with Assurance Services Manager Health Care and ICU nursing staff this am. Patients [...] . Avoid nephrotoxic meds. ?? Gurwinder Godoy MD,[facility] Vascular Medicine Interval History Reviewed last night [...] 7.8* 8.6 -- GLC 115* 121* -- PRESS OPERATOR Danette Peck RN - 11/07/2018 8:50 AM [...] to keep SBP <160 and MAP >80. PRESS OPERATOR Gurwinder Godoy MD - 11/06/2018 12:[address] [facility] Vascular Medicine Progress Note Date of Service [...] . Avoid nephrotoxic meds. ?? Gurwinder Godoy MD,[facility] Vascular Medicine Interval History Reviewed last night [...] 7.8* 8.6 -- GLC 115* 121* -- PRESS OPERATOR Millie Handley APRN THREE DIMENSIONAL MAP MODELER - 11/06/2018 11:55 AM CST Critical Care [...] Total critical care time today 35 min. PRESS OPERATOR Associated attestation - Bishop Tran MD - 11/12/2018 10:50 AM BELT PRESS OPERATOR Physician Attestation I, Bishop Tran, have reviewed [...] sufficient urine. Continue plan as documented in OIL WELL SERVICES FIELD SUPERVISOR note. The patient does not seem to [...] for the 11/05/2018 admission is complete. See [facility] admission navigator for prior to admission medications Medication history source reliability:Good Medication history interview source(s):Patient Medication history resources (including written lists, pill bottles, clinic record):Patient mailed in his medication list prior to surgery Primary pharmacy.[facility] Additional medication history information not noted on AIRPORT TOWER CONTROLLER med list :None Time spent in this [...] Bedtime 11/04/2018 at 2200 Yes Reported, Patient PRESS OPERATOR documented in this encounter Procedure Notes Missael [...] management per anethesia/vasc surg Missael Garcia MD [phone] PRESS OPERATOR documented in this encounter Consult Notes Kaleb Rodriguez NP - 11/05/2018 5:14 PM CSTAssociated Order(s): ULTRASONIC HAND SOLDERER IP CONSULT [facility] Consult Critical Care Service Date of Admission: [...] Code Status Full Code Primary Care Physician [facility] Chief Complaint S/p TEVAR History of [...] IR Lumbar Drain Placement w Fluoro Narrative [facility] INTERVENTIONAL NEURORADIOLOGY PROCEDURAL NOTE FLUOROSCOPICALLY GUIDED PERCUTANEOUS [...] CPT codes included for physician reference only: 83734/60500 IMSSAEL GARCIA MD Glucose by meter Result Value Ref Range Glucose 124 (H) 70 - 99 mg/dL PRESS OPERATOR Associated attestation - Olive Bello MD - 11/05/2018 10:58 PM BELT PRESS OPERATOR ICU STAFF: I have discussed Mr. Hendricks's [...] management per vascular surgery. Olive Bello MD #[id number] 11/05/18 Bill as Advanced Practice Provider only. Gurwinder Godoy MD - 11/05/2018 1:[address] [facility] Vascular Medicine Consultation Date of Admission: 11/05/2018 Date of Consult (When I saw the patient): 11/05/18 Physician Supervisory Attestation: I have reviewed and discussed with the physician compounding assistant their history, physical and plan and independently [...] consult Copy to Dr. Debbie Godoy MD ,[facility] Vascular Medicine 11/05/2018 Assessment & Plan 1. [...] 78 year old male Primary Care Physician [facility] History of Present Illness Speedy Hendricks [...] Labs Lab Test 11/05/18 0655 A1C 5.2 PRESS OPERATOR documented in this encounter Nursing Notes Isis Rivera RN - 11/05/2018 8:40 AM CST Noted swelling left ankle PRESS OPERATOR documented in this encounter Miscellaneous Notes Plan [...] sites soft, bruised, CMS intact. Voiding okay. PRESS OPERATOR Plan of Care - Misty Villalobos RN - 11/08/2018 7:10 PM CST A/O x4. AVSS on RA. Tele NSR. Hydralazine given x1. Up SBA. Neuros intact. CMS intact. Groin sites, steri strips. Back site, moist drainage. Pulses, palpable, +2. Regular diet. Chapman removed at 1740, Due to void. PRESS OPERATOR Provider Notification - Aura Crooks RN - 11/08/2018 11:37 AM CST MD NOTIFICATION Person Notified: MDA Notified Person's Name: Yeimi Notification Date/Time: 11/08/2017 1135 Notification Interaction: Paged physician Purpose of Notification: Pt remains to have drainage from lumbar drain site. Orders Received: MDA to come assess pt. PRESS OPERATOR Plan of Care - Kristy Castañeda RN [...] access readiness for lumbar drain removal today. PRESS OPERATOR Provider Notification - Kristy Castañeda RN - [...] assess pulling the drain. Kristy Castañeda RN PRESS OPERATOR Plan of Care - Aura Crooks RN - 11/07/2018 6:17 PM CST Neuro: LUCAS- strength 5/5. PERRL. Complains of soreness in groin/hips from moving them too much. Ptup in chair for a hour and tolerated well. Ok'd with Anesthesia MD, [place], to get up in chair forno more [...] some blood in tubing- Anesthesia MD aware. PRESS OPERATOR Plan of Care - Danette Peck RN - 11/07/2018 1:12 PM CST [id number] Continued with numbness bilateral top of thighs. [...] and dtr in room when Drs here. PRESS OPERATOR Provider Notification - Ramiro Lozano RN - 11/07/2018 6:17 AM CST Paged vascular surgery fellow Ashanti regarding new numbness to anterior thighs. CSF has been drained, will begin 500ml bolus unless directed otherwise. PRESS OPERATOR Plan of Care - Ramiro Lozano RN [...] clamped now. Daughter Raquel updated this morning. PRESS OPERATOR Provider Notification - Ramiro Lozano RN - 11/07/2018 5:[address] Wang regarding new leg pain and ICP increase. Opening drain for 15ml CSF over 1 hr per order. PRESS OPERATOR Plan of Care - Danette Peck RN - 11/06/2018 4:34 PM CST [id number] Neuro checks remain intact. Able to move [...] be retested for MRSA per infection control. PRESS OPERATOR Plan of Care - Ramiro Lozano RN [...] this shift. Daughter Raquel updated this morning. PRESS OPERATOR Plan of Care - Danette Peck RN - 11/05/2018 9:43 PM CST [id number] Neuro: intact. Able to move hips slightly [...] by physicians. Care transferred to next nurse. PRESS OPERATOR Provider Notification - Ramiro Lozano RN - 11/05/2018 7:46 PM CST Notified commissioned sales associate regarding failure to meet MAP goal of 80, new orders received. PRESS OPERATOR Op Note - Butch Brown MD - [...] descending aortic angiogram SURGEON: Butch Brown MD MECHANICAL MAINTENANCE TECHNICIAN: Kannan Morse MD; Bessy Mas MD - [...] then able to upsized to a 6 Armenian sheath over a Bentson wire.The patient was [...] femoral artery and upsized to an 11 Armenian sheath. We then able to insert JULIANE [...] was removed and backfilled with a 16 Armenian dry seal on the left.At this point [...] superficial femoral artery access which was 6 Armenian sheath with an Angio-Seal closure device performed [...] the drain. Butch Brown MD Vascular Surgery PRESS OPERATOR Brief Op Note - Bessy Mccray MD - 11/05/2018 12:[address] [facility] Brief Operative Note Pre-operative diagnosis: DESCENDING THORACIC [...] Palp DP bilaterally Complications: None. Implants: None. PRESS OPERATOR Associated attestation - Butch Brown MD - 11/05/2018 1:09 PM BELT PRESS OPERATOR Butch Brown MD IR Note - Gwen Rivas RN - 11/05/2018 10:27 AM CST Interventional Radiology Intra-procedural Nursing Note Patient Name: Speedy Hendricks Today's Date: November 05, 2018 Start Time: 0850 End of procedure time: 904 Procedure: lumbar drain placement Report given to: Dr. See, anesthesia Time pt departs: 919 Staff Assistant: n/a Other Notes: patient tolerated well. Drain connected to closed drainage system flushed with preservative free NS per Dr. Haro. 1mg Versed and 50mcg Fentanyl IV given for additional sedation (had received 4mg Versed and 100mcg Fentanyl in pre-op prior to arrival). SR on monitor .VSS. Patient taken back to pre-op bay in stable condition. Gwen Rivas RNrelationship associate Radiology PRESS OPERATOR documented in this encounter Plan of Treatment Not on filedocumented as of this encounter Procedures Procedure Name Priority Date/Time Associated Comments Diagnosis CBC WITH PLATELETS & Routine 11/09/2018 7:41 AM Descending tho racic Results for this DIFFERENTIAL BELT PRESS OPERATOR aortic aneurysm (H) procedur e are in the results section. COMPREHENSIVE Routine 11/09/2018 7:41 AM Descending thoracic R esults for this METABOLIC PANEL BELT PRESS OPERATOR aortic aneurysm (H) proce dure are in the results section. MAGNESIUM Routine 11/08/2018 3:40 AM Descending thoracic Re sults for this BELT PRESS OPERATOR aortic aneurysm (H) procedur e are in the results section. COMPREHENSIVE Routine 11/08/2018 3:40 AM Descending thoracic R esults for this METABOLIC PANEL BELT PRESS OPERATOR aortic aneurysm (H) proce dure are in the results section. CBC WITH PLATELETS Routine 11/08/2018 3:40 AM Descending thora cic Results for this BELT PRESS OPERATOR aortic aneurysm (H) procedur e are in the results section. CBC WITH PLATELETS STAT 11/07/2018 3:00 PM Descending thora cic Results for this BELT PRESS OPERATOR aortic aneurysm (H) procedur e are in the results section. CBC WITH PLATELETS & Timed 11/07/2018 9:50 AM Descending tho racic Results for this DIFFERENTIAL BELT PRESS OPERATOR aortic aneurysm (H) procedur e are in the results section. MAGNESIUM Routine 11/07/2018 9:50 AM Descending thoracic Re sults for this BELT PRESS OPERATOR aortic aneurysm (H) procedur e are in the results section. BASIC METABOLIC PANEL Timed 11/07/2018 9:50 AM Descending th oracic Results for this BELT PRESS OPERATOR aortic aneurysm (H) procedur e are in the results section. GLUCOSE BY METER Routine 11/07/2018 7:44 AM Descending thoraci c Results for this BELT PRESS OPERATOR aortic aneurysm (H) procedur e are in the results section. GLUCOSE BY METER Routine 11/07/2018 3:49 AM Descending thoraci c Results for this BELT PRESS OPERATOR aortic aneurysm (H) procedur e are in the results section. GLUCOSE BY METER Routine 11/07/2018 12:08 Descending thoracic Results for this AM BELT PRESS OPERATOR aortic aneurysm (H) procedur e are in the results section. GLUCOSE BY METER Routine 11/06/2018 7:53 PM Descending thoraci c Results for this BELT PRESS OPERATOR aortic aneurysm (H) procedur e are in the results section. GLUCOSE BY METER Routine 11/06/2018 11:02 Descending thoracic Results for this AM BELT PRESS OPERATOR aortic aneurysm (H) procedur e are in the results section. GLUCOSE BY METER Routine 11/06/2018 7:38 AM Descending thoraci c Results for this BELT PRESS OPERATOR aortic aneurysm (H) procedur e are in the results section. LACTIC ACID WHOLE Routine 11/06/2018 4:15 AM Descending thorac ic Results for this BLOOD BELT PRESS OPERATOR aortic aneurysm (H) procedur e are in the results section. BASIC METABOLIC PANEL Routine 11/06/2018 4:15 AM Descending th oracic Results for this BELT PRESS OPERATOR aortic aneurysm (H) procedur e are in the results section. CBC WITH PLATELETS Routine 11/06/2018 4:15 AM Descending thora cic Results for this BELT PRESS OPERATOR aortic aneurysm (H) procedur e are in the results section. GLUCOSE BY METER Routine 11/06/2018 1:12 AM Descending thoraci c Results for this BELT PRESS OPERATOR aortic aneurysm (H) procedur e are in the results section. MRSA MSSA PCR, NASAL STAT 11/05/2018 11:41 Descending thora cic Results for this SWAB PM BELT PRESS OPERATOR aortic aneurysm (H) procedur e are in the results section. GLUCOSE BY METER Routine 11/05/2018 8:16 PM Descending thoraci c Results for this BELT PRESS OPERATOR aortic aneurysm (H) procedur e are in the results section. GLUCOSE BY METER Routine 11/05/2018 4:39 PM Descending thoraci c Results for this BELT PRESS OPERATOR aortic aneurysm (H) procedur e are in the results section. INR STAT 11/05/2018 4:35 PM Descending thoracic Re sults for this BELT PRESS OPERATOR aortic aneurysm (H) procedur e are in the results section. LACTIC ACID WHOLE STAT 11/05/2018 4:35 PM Descending thorac ic Results for this BLOOD BELT PRESS OPERATOR aortic aneurysm (H) procedur e are in the results section. BASIC METABOLIC PANEL STAT 11/05/2018 4:35 PM Descending th oracic Results for this BELT PRESS OPERATOR aortic aneurysm (H) procedur e are in the results section. CBC WITH PLATELETS STAT 11/05/2018 4:35 PM Descending thora cic Results for this BELT PRESS OPERATOR aortic aneurysm (H) procedur e are in the results section. IR THORACIC Routine 11/05/2018 12:09 Descending thoracic Resu lts for this ENDOVASCULAR STENT PM BELT PRESS OPERATOR aortic aneurysm (H) pr ocedure are in GRAFT the results section. REPAIR, ANEURYSM, 11/05/2018 9:35 AM DESCENDING THORAC IC THORACIC AORTIC, BELT PRESS OPERATOR AORTIC ANEURYSM ENDOVASCULAR Special Needs BLOOD TRANSFUSION ISSUE (RAR E ANTIBODIES) PT WILL DO A TYPE AND CROSS ON 11/03 JALEEL 10/28 IR LUMBAR DRAIN Routine 11/05/2018 9:10 AM Result s for this PLACEMENT W FLUORO BELT PRESS OPERATOR procedure are in the results section. EKG 12-LEAD, TRACING STAT 11/05/2018 6:58 AM R esults for this ONLY BELT PRESS OPERATOR procedure are i n the results section. POTASSIUM STAT 11/05/2018 6:55 AM Descending thoracic Re sults for this BELT PRESS OPERATOR aortic aneurysm (H) procedur e are in the results section. LIPID PROFILE STAT 11/05/2018 6:55 AM Descending thoracic R esults for this BELT PRESS OPERATOR aortic aneurysm (H) procedur e are in the results section. HEMOGLOBIN A1C STAT 11/05/2018 6:55 AM Descending thoracic Results for this BELT PRESS OPERATOR aortic aneurysm (H) procedur e are in the results section. CREATININE STAT 11/05/2018 6:55 AM Descending thoracic Re sults for this BELT PRESS OPERATOR aortic aneurysm (H) procedur e are in the results section. XR CHEST PORT 1 VIEW STAT 11/05/2018 6:40 AM R esults for this BELT PRESS OPERATOR procedure are i n the results section. EKG CARDIAC - HIM 09/24/2018 12:00 AM SCAN BELT PRESS OPERATOR documented in this encounter Results (ABNORMAL) CBC with platelets differential (11/09/2018 7:41 AM [facility]) Component Value Ref Test Analysis Performed At [facility] Range Method Time Signature WBC 9.3 4.0 - 11/09/2018 [facility] 11.0 8:06 AM [place] [id number] RBC Count 3.55 (L) 4.4 - 11/09/2018 [facility] 5.9 8:06 AM [place] [id number] Hemoglobin 11.3 (L) 13.3 - 11/09/2018 [facility] 17.7 8:06 AM [facility] Hematocrit 33.7 (L) 40.0 - 11/09/2018 [facility] 53.0 % 8:06 AM [facility] MCV 95 78 - 100 11/09/2018 [facility] fl 8:06 AM [facility] MCH 31.8 26.5 - 11/09/2018 [facility] 33.0 pg 8:06 AM [facility] MCHC 33.5 31.5 - 11/09/2018 [facility] 36.5 8:06 AM [facility] RDW 13.9 10.0 - 11/09/2018 [facility] 15.0 % 8:06 AM [facility] Platelet Count 83 (L) 150 - 11/09/2018 [facility] 450 8:[address] Diff Method Manual 11/09/2018 [facility] Differential 8:31 AM [facility] % Neutrophils 85.0 % 11/09/2018 [facility] 8:31 AM [facility] % Lymphocytes 6.0 % 11/09/2018 [facility] 8:31 AM [facility] % Monocytes 7.0 % 11/09/2018 [facility] 8:31 AM [facility] % Eosinophils 2.0 % 11/09/2018 [facility] 8:31 AM [facility] % Basophils 0.0 % 11/09/2018 [facility] 8:31 AM [facility] Absolute 7.9 1.6 - 11/09/2018 [facility] Neutrophil 8.3 8:[address] Absolute 0.6 (L) 0.8 - 11/09/2018 [facility] Lymphocytes 5.3 8:[address] Absolute 0.7 0.0 - 11/09/2018 [facility] Monocytes 1.3 8:[address] Absolute 0.2 0.0 - 11/09/2018 [facility] Eosinophils 0.7 8:[address] Absolute 0.0 0.0 - 11/09/2018 [facility] Basophils 0.2 8:[address] RBC Morphology Consistent with 11/09/2018 [facility] reported results 8:31 AM [facility] Platelet Automated count 11/09/2018 [facility] Estimate confirmed. 8:31 AM [facility] morphology is normal. Specimen Anatomical Collection Method Collection Time Receive d Time (Source) Location / / Volume Laterality Blood specimen 11/09/2018 7:41 AM 019 7:51 (specimen) BELT PRESS OPERATOR AM BELT PRESS OPERATOR Dimas Chapman MD LAB - BLOOD ORDERABLES Performing Organization Address City/State/ZIP Code Phon e Number M [facility] [address] [address] [phone] [facility] [address] [address], [facility] [phone] (ABNORMAL) Comprehensive metabolic panel (11/09/2018 7:41 AM [facility]) P athologist Signature Sodium 144 133 - 144 11/09/2018 [place] mmol/L 8:11 AM [facility] Potassium 4.0 3.4 - 5.3 11/09/2018 [place] mmol/L 8:11 AM [facility] Chloride 113 (H) 94 - 109 11/09/2018 [place] mmol/L 8:11 AM [facility] Carbon Dioxide 22 20 - 32 11/09/2018 [place] mmol/L 8:17 AM [facility] Anion Gap 9 3 - 14 11/09/2018 [place] mmol/L 8:17 AM [facility] Glucose 94 70 - 99 11/09/2018 [place] mg/dL 8:17 AM [facility] Urea Nitrogen 21 7 - 30 11/09/2018 [place] mg/dL 8:17 AM [facility] Creatinine 1.24 0.66 - 11/09/2018 [place] 1.25 mg/dL 8:17 AM [facility] GFR Estimate 56 (L) >60 11/09/2018 [place] mL/min/{1. 8:[address] [facility] 73_m2} HOSPITAL Comment: Non GFR Calc Starting 10/05/2018, serum creatinine ba sed estimated GFR (eGFR) will be calculated using the Chronic Kidney Dise [facility] Epidemiology Collaboration (CKD-EPI) equation. GFR Estimate If 65 >60 mL/min/{1.73_m2} 11/09/2018 8: 17 AM [facility] Comment: GFR Calc Starting 10/05/2018, serum creatinine ba sed estimated GFR (eGFR) will be calculated using the Chronic Kidney Dise [facility] Epidemiology Collaboration (CKD-EPI) equation. Calcium 8.4 (L) 8.5 - 10.1 11/09/2018 8:17 AM [facility] mg/dL [facility] Bilirubin Total 1.3 0.2 - 1.3 mg/dL 11/09/2018 8:19 AM [facility] Albumin 2.4 (L) 3.4 - 5.0 g/dL 11/09/2018 8:19 AM [facility] [facility] [place] Protein Total 6.2 (L) 6.8 - 8.8 g/dL 11/09/2018 8:19 AM [facility] Alkaline Phosphatase 72 40 - 150 U/L 11/09/2018 8:19 AM [facility] ALT 17 0 - 70 U/L 11/09/2018 8:19 AM [facility] AST 15 0 - 45 U/L 11/09/2018 8:19 AM [facility] Specimen Anatomical Collection Method Collection Time Receive d Time (Source) Location / / Volume Laterality Blood specimen 11/09/2018 7:41 AM 019 7:51 (specimen) BELT PRESS OPERATOR AM [facility] Dimas Chapman MD LAB - BLOOD ORDERABLES Performing Organization Address City/State/ZIP Code Phon e Number [facility] [address] [address] [facility] [address] [place] [address], [place] [phone] Magnesium Level scheduled every Thu Wed Thu (11/08/2018 3:40 AM BELT PRESS OPERATOR) P athologist Signature Magnesium 1.7 1.6 - 2.3 11/08/2018 [facility] mg/dL 4:06 AM [facility] Specimen Anatomical Collection Method Collection Time Receive d Time (Source) Location / / Volume Laterality Blood specimen 11/08/2018 3:40 AM 019 3:46 (specimen) BELT PRESS OPERATOR AM BELT PRESS OPERATOR Dimas Chapman MD LAB - BLOOD ORDERABLES Performing Organization Address City/State/ZIP Code Phon e Number [facility] [address] [place] [address] [facility] [address] [place] [address], [place] [phone] (ABNORMAL) Comprehensive metabolic panel (11/08/2018 3:40 AM BELT PRESS OPERATOR) Analysis Performed At Patho logist Time Signature Sodium 142 133 - 144 11/08/2018 [facility] mmol/L 3:58 AM [facility] Potassium 4.2 3.4 - 5.3 11/08/2018 [facility] mmol/L 3:58 AM [facility] Chloride 111 (H) 94 - 109 11/08/2018 [facility] mmol/L 3:58 AM [facility] Carbon Dioxide 22 20 - 32 11/08/2018 [facility] mmol/L 4:04 AM [facility] Anion Gap 9 3 - 14 11/08/2018 [facility] mmol/L 4:04 AM [facility] Glucose 164 (H) 70 - 99 11/08/2018 [facility] mg/dL 4:04 AM [facility] Urea Nitrogen 20 7 - 30 11/08/2018 [facility] mg/dL 4:04 AM [facility] Creatinine 1.29 (H) 0.66 - 11/08/2018 [facility] 1.25 mg/dL 4:04 AM [facility] GFR Estimate 53 (L) >60 11/08/2018 [facility] mL/min/{1. 4:[address] [facility] 73_m2} HOSPITAL Comment: Non GFR Calc Starting 10/05/2018, serum creatinine ba sed estimated GFR (eGFR) will be calculated using the Chronic Kidney Dise [facility] Epidemiology Collaboration (CKD-EPI) equation. GFR Estimate If 62 >60 mL/min/{1.73_m2} 11/08/2018 4: 04 AM [facility] Comment: GFR Calc Starting 10/05/2018, serum creatinine ba sed estimated GFR (eGFR) will be calculated using the Chronic Kidney Dise [facility] Epidemiology Collaboration (CKD-EPI) equation. Calcium 8.2 (L) 8.5 - 10.1 11/08/2018 4:04 AM [facility] mg/dL [facility] Bilirubin Total 1.1 0.2 - 1.3 mg/dL 11/08/2018 4:06 AM [facility] Albumin 2.6 (L) 3.4 - 5.0 g/dL 11/08/2018 4:06 AM [facility] Protein Total 6.0 (L) 6.8 - 8.8 g/dL 11/08/2018 4:06 AM [facility] Alkaline Phosphatase 62 40 - 150 U/L 11/08/2018 4:06 AM [facility] ALT 18 0 - 70 U/L 11/08/2018 4:06 AM [facility] AST 19 0 - 45 U/L 11/08/2018 4:06 AM [facility] Specimen Anatomical Collection Method Collection Time Receive d Time (Source) Location / / Volume Laterality Blood specimen 11/08/2018 3:40 AM 019 3:46 (specimen) BELT PRESS OPERATOR AM BELT PRESS OPERATOR Gurwinder Godoy MD LAB - BLOOD ORDERABLES Performing Organization Address City/State/ZIP Code Phon e Number [facility] [address] [address] [facility] [address] [address], U [phone] (ABNORMAL) CBC (AM Draw) (11/08/2018 3:40 AM BELT PRESS OPERATOR) Analysis Performed At Patho logist Time Signature WBC 11.2 (H) 4.0 - 11.0 11/08/2018 [facility] 10e9/L 3:50 AM [facility] RBC Count 3.62 (L) 4.4 - 5.9 11/08/2018 [facility] 10e12/L 3:50 AM [facility] Hemoglobin 11.6 (L) 13.3 - 11/08/2018 [facility] 17.7 g/dL 3:50 AM [facility] Hematocrit 34.5 (L) 40.0 - 11/08/2018 [facility] 53.0 % 3:50 AM [facility] MCV 95 78 - 100 11/08/2018 [facility] fl 3:50 AM [facility] MCH 32.0 26.5 - 11/08/2018 [facility] 33.0 pg 3:50 AM [facility] MCHC 33.6 31.5 - 11/08/2018 [facility] 36.5 g/dL 3:50 AM [facility] RDW 13.9 10.0 - 11/08/2018 [facility] 15.0 % 3:50 AM [facility] Platelet Count 82 (L) 150 - 450 11/08/2018 [facility] 10e9/L 3:50 AM [facility] Specimen Anatomical Collection Method Collection Time Receive d Time (Source) Location / / Volume Laterality Blood specimen 11/08/2018 3:40 AM 019 3:46 (specimen) BELT PRESS OPERATOR AM BELT PRESS OPERATOR Gurwinder Godoy MD LAB - BLOOD ORDERABLES Performing Organization Address City/State/ZIP Code Phon e Number [facility] [address] [address] [phone] [facility] [address] [address], U [phone] (ABNORMAL) CBC with platelets (11/07/2018 3:00 PM BELT PRESS OPERATOR) Analysis Performed At Patho logist Time Signature WBC 11.1 (H) 4.0 - 11.0 11/07/2018 [facility] 10e9/L 3:08 PM [facility] RBC Count 3.74 (L) 4.4 - 5.9 11/07/2018 [facility] 10e12/L 3:08 PM [facility] Hemoglobin 11.9 (L) 13.3 - 11/07/2018 [facility] 17.7 g/dL 3:08 PM [facility] Hematocrit 35.4 (L) 40.0 - 11/07/2018 [facility] 53.0 % 3:08 PM [facility] MCV 95 78 - 100 11/07/2018 [facility] fl 3:08 PM [facility] MCH 31.8 26.5 - 11/07/2018 [facility] 33.0 pg 3:08 PM [facility] MCHC 33.6 31.5 - 11/07/2018 [facility] 36.5 g/dL 3:08 PM [facility] RDW 14.1 10.0 - 11/07/2018 [facility] 15.0 % 3:08 PM [facility] Platelet Count 87 (L) 150 - 450 11/07/2018 [facility] 10e9/L 3:08 PM [facility] Specimen Anatomical Collection Method Collection Time Receive d Time (Source) Location / / Volume Laterality Blood specimen 11/07/2018 3:00 PM 019 3:05 (specimen) BELT PRESS OPERATOR PM BELT PRESS OPERATOR Bart Feliciano MD LAB - BLOOD ORDERABLES Performing Organization Address City/State/ZIP Code Phon e Number [facility] [address] [address] [place] [id number] [place] [address] [address], [facility] [phone] Magnesium (11/07/2018 9:50 AM BELT PRESS OPERATOR) P athologist Signature Magnesium 1.6 1.6 - 2.3 11/07/2018 [place] mg/dL 11:12 AM [facility] Specimen Anatomical Collection Method Collection Time Receive d Time (Source) Location / / Volume Laterality 11/07/2018 9:50 AM 9 BELT PRESS OPERATOR 10:04 AM BELT PRESS OPERATOR Gurwinder Godoy MD LAB - BLOOD ORDERABLES Performing Organization Address City/State/ZIP Code Phon e Number [facility] [address] [address] [place] [address] [place] [address], [place] [phone] (ABNORMAL) CBC with platelets differential (11/07/2018 9:50 AM [facility]) [facility] Method Time Signature WBC 10.4 4.0 - 11/07/2018 [facility] 11.0 10:13 AM [facility] 10e9/L [facility] RBC Count 3.63 (L) 4.4 - 5.9 11/07/2018 [facility] 10e12/L 10:13 AM [facility] Hemoglobin 11.5 (L) 13.3 - 11/07/2018 [facility] 17.7 g/dL 10:13 AM [facility] Hematocrit 34.3 (L) 40.0 - 11/07/2018 [facility] 53.0 % 10:13 AM [facility] MCV 95 78 - 100 11/07/2018 [facility] fl 10:13 AM [facility] MCH 31.7 26.5 - 11/07/2018 [facility] 33.0 pg 10:13 AM [facility] MCHC 33.5 31.5 - 11/07/2018 [facility] 36.5 g/dL 10:13 AM [facility] RDW 14.0 10.0 - 11/07/2018 [facility] 15.0 % 10:13 AM [facility] Platelet Count 82 (L) 150 - 450 11/07/2018 [facility] 10e9/L 10:37 AM [facility] Diff Method Automated 11/07/2018 [facility] Method 10:37 AM [facility] % Neutrophils 78.8 % 11/07/2018 [facility] 10:37 AM [facility] % Lymphocytes 6.2 % 11/07/2018 [facility] 10:37 AM [facility] % Monocytes 14.7 % 11/07/2018 [facility] 10:37 AM [facility] % Eosinophils 0.2 % 11/07/2018 [facility] 10:37 AM [facility] % Basophils 0.0 % 11/07/2018 [facility] 10:37 AM [facility] % Immature 0.1 % 11/07/2018 [facility] Granulocytes 10:37 AM [facility] Nucleated RBCs 0 0 /100 11/07/2018 [facility] 10:37 AM [facility] Absolute 8.2 1.6 - 8.3 11/07/2018 [facility] Neutrophil 10e9/L 10:37 AM [facility] Absolute 0.6 (L) 0.8 - 5.3 11/07/2018 [facility] Lymphocytes 10e9/L 10:37 AM [facility] Absolute 1.5 (H) 0.0 - 1.3 11/07/2018 [facility] Monocytes 10e9/L 10:37 AM [facility] Absolute 0.0 0.0 - 0.7 11/07/2018 [facility] Eosinophils 10e9/L 10:37 AM [facility] Absolute 0.0 0.0 - 0.2 11/07/2018 [facility] Basophils 10e9/L 10:37 AM [facility] Abs Immature 0.0 0 - 0.4 11/07/2018 [facility] Granulocytes 10e9/L 10:37 AM [facility] Absolute 0.0 11/07/2018 [facility] Nucleated RBC 10:37 AM [facility] Ovalocytes Slight 11/07/2018 [facility] 10:37 AM [facility] Platelet Automated 11/07/2018 [facility] Estimate count 10:37 AM [facility] confirmed. [facility] Platelet morphology is normal. Specimen Anatomical Collection Method Collection Time Receive d Time (Source) Location / / Volume Laterality Blood specimen 11/07/2018 9:50 AM 019 (specimen) BELT PRESS OPERATOR 10:04 AM BELT PRESS OPERATOR Gurwinder Godoy MD LAB - BLOOD ORDERABLES Performing Organization Address City/State/ZIP Code Phon e Number [facility] [address] [address] [phone] [facility] [address] [place] [address], U [phone] (ABNORMAL) Basic metabolic panel (11/07/2018 9:50 AM BELT PRESS OPERATOR) Analysis Performed At Patho logist Time Signature Sodium 147 (H) 133 - 144 11/07/2018 [facility] mmol/L 10:16 AM [facility] Potassium 4.1 3.4 - 5.3 11/07/2018 [facility] mmol/L 10:16 AM [facility] Chloride 117 (H) 94 - 109 11/07/2018 [place] mmol/L 10:16 AM [facility] Carbon Dioxide 20 20 - 32 11/07/2018 [place] mmol/L 10:23 AM [facility] Anion Gap 10 3 - 14 11/07/2018 [place] mmol/L 10:23 AM [facility] Glucose 108 (H) 70 - 99 11/07/2018 [place] mg/dL 10:23 AM [facility] Urea Nitrogen 23 7 - 30 11/07/2018 [place] mg/dL 10:23 AM [facility] Creatinine 1.47 (H) 0.66 - 11/07/2018 [place] 1.25 mg/dL 10:23 AM [facility] GFR Estimate 46 (L) >60 11/07/2018 [place] mL/min/{1. 10:[address] [facility] 73_m2} HOSPITAL Comment: Non GFR Calc Starting 10/05/2018, serum creatinine ba sed estimated GFR (eGFR) will be calculated using the Chronic Kidney Dise [facility] Epidemiology Collaboration (CKD-EPI) equation. GFR Estimate If 53 (L) >60 mL/min/{1.73_m2} 11/07/2018 10 :23 AM [place] Black [facility] Comment: GFR Calc Starting 10/05/2018, serum creatinine ba sed estimated GFR (eGFR) will be calculated using the Chronic Kidney Dise [facility] Epidemiology Collaboration (CKD-EPI) equation. Calcium 8.2 (L) 8.5 - 10.1 mg/dL 11/07/2018 10:23 AM [facility] Specimen Anatomical Collection Method Collection Time Receive d Time (Source) Location / / Volume Laterality Blood specimen 11/07/2018 9:50 AM 019 (specimen) BELT PRESS OPERATOR 10:04 AM BELT PRESS OPERATOR Gurwinder Godoy MD LAB - BLOOD ORDERABLES Performing Organization Address City/State/ZIP Code Phon e Number [facility] [address] [address] [facility] [address] [address], [place] [phone] (ABNORMAL) Glucose by meter (11/07/2018 7:44 AM BELT PRESS OPERATOR) P athologist Signature Glucose 112 (H) 70 - 99 11/07/2018 [facility] mg/dL 7:56 AM BELT PRESS OPERATOR TEST, GLUCOSE Specimen Anatomical Collection Method Collection Time Receive d Time (Source) Location / / Volume Laterality 11/07/2018 7:44 AM 9 7:56 BELT PRESS OPERATOR AM BELT PRESS OPERATOR Juan Lewis MD LAB - BEFOUZIA POCT Performing Organization Address [facility] [address]/ZIP Code Phon e Number [facility] POINT OF CARE TEST, GLUCOSE POINT OF CARE TEST, GLUCOSE (ABNORMAL) Glucose by meter (11/07/2018 3:49 AM BELT PRESS OPERATOR) P athologist Signature Glucose 105 (H) 70 - 99 11/07/2018 [facility] mg/dL 4:01 AM BELT PRESS OPERATOR TEST, GLUCOSE Specimen Anatomical Collection Method Collection Time Receive d Time (Source) Location / / Volume Laterality 11/07/2018 3:49 AM 9 4:01 BELT PRESS OPERATOR AM BELT PRESS OPERATOR Juan YUAN - CAROLYN POCT Performing Organization Address City/[facility] [address]/ZIP Code Phon e Number [facility] POINT OF CARE TEST, GLUCOSE POINT OF CARE TEST, GLUCOSE (ABNORMAL) Glucose by meter (11/07/2018 12:08 AM BELT PRESS OPERATOR) P athologist Signature Glucose 119 (H) 70 - 99 11/07/2018 [facility] mg/dL 12:19 AM BELT PRESS OPERATOR TEST, GLUCOSE Specimen Anatomical Collection Method Collection Time Receive d Time (Source) Location / / Volume Laterality 11/07/2018 12:08 11/07/2018 AM BELT PRESS OPERATOR 12:19 AM BELT PRESS OPERATOR Juan YUAN - BEFOUZIA POCT Performing Organization Address City/[facility] [address]/ZIP Code Phon e Number [facility] POINT OF CARE TEST, GLUCOSE POINT OF CARE TEST, GLUCOSE (ABNORMAL) Glucose by meter (11/06/2018 7:53 PM BELT PRESS OPERATOR) P athologist Signature Glucose 116 (H) 70 - 99 11/06/2018 [facility] mg/dL 8:04 PM BELT PRESS OPERATOR TEST, GLUCOSE Specimen Anatomical Collection Method Collection Time Receive d Time (Source) Location / / Volume Laterality 11/06/2018 7:53 PM 9 8:04 BELT PRESS OPERATOR PM BELT PRESS OPERATOR Juan Elijah Debbie MD LAB - BEAKER POCT Performing Organization Address City/State/ZIP Code Phon e Number [facility] POINT OF CARE TEST, GLUCOSE POINT OF CARE TEST, GLUCOSE (ABNORMAL) Glucose by meter (11/06/2018 11:02 AM BELT PRESS OPERATOR) P athologist Signature Glucose 109 (H) 70 - 99 11/06/2018 [facility] mg/dL 11:13 AM BELT PRESS OPERATOR TEST, GLUCOSE Specimen Anatomical Collection Method Collection Time Receive d Time (Source) Location / / Volume Laterality 11/06/2018 11:02 11/06/2018 AM BELT PRESS OPERATOR 11:13 AM BELT PRESS OPERATOR Juan Lewis MD LAB - BEAKER POCT Performing Organization Address City/State/ZIP Code Phon e Number [facility] POINT OF CARE TEST, GLUCOSE POINT OF CARE TEST, GLUCOSE (ABNORMAL) Glucose by meter (11/06/2018 7:38 AM BELT PRESS OPERATOR) P athologist Signature Glucose 104 (H) 70 - 99 11/06/2018 [facility] mg/dL 7:50 AM BELT PRESS OPERATOR TEST, GLUCOSE Specimen Anatomical Collection Method Collection Time Receive d Time (Source) Location / / Volume Laterality 11/06/2018 7:38 AM 9 7:50 BELT PRESS OPERATOR AM BELT PRESS OPERATOR Juan YUAN - BEAKER POCT Performing Organization Address City/[facility] [address]/ZIP Code Phon e Number [facility] POINT OF CARE TEST, GLUCOSE POINT OF CARE TEST, GLUCOSE Lactic acid whole blood (11/06/2018 4:15 AM BELT PRESS OPERATOR) P athologist Signature Lactic Acid 1.4 0.7 - 2.0 11/06/2018 [place] mmol/L 4:40 AM BELT PRESS OPERATOR [facility] Specimen Anatomical Collection Method Collection Time Receive d Time (Source) Location / / Volume Laterality Blood specimen 11/06/2018 4:15 AM 019 4:25 (specimen) BELT PRESS OPERATOR AM BELT PRESS OPERATOR Bessy Mccray MD LAB - BLOOD ORDERABLES Performing Organization Address City/[facility] [address]/ZIP Code Phon e Number [facility] [address] [address] [facility] [address] [address], [facility] [phone] (ABNORMAL) Basic metabolic panel (11/06/2018 4:15 AM BELT PRESS OPERATOR) Analysis Performed At Patho logist Time Signature Sodium 142 133 - 144 11/06/2018 [facility] mmol/L 4:49 AM [facility] Potassium 4.4 3.4 - 5.3 11/06/2018 [facility] mmol/L 4:49 AM [facility] Chloride 113 (H) 94 - 109 11/06/2018 [facility] mmol/L 4:49 AM [facility] Carbon Dioxide 21 20 - 32 11/06/2018 [facility] mmol/L 4:54 AM [facility] Anion Gap 8 3 - 14 11/06/2018 [facility] mmol/L 4:54 AM [facility] Glucose 115 (H) 70 - 99 11/06/2018 [facility] mg/dL 4:54 AM [facility] Urea Nitrogen 27 7 - 30 11/06/2018 [facility] mg/dL 4:54 AM [facility] Creatinine 1.57 (H) 0.66 - 11/06/2018 [facility] 1.25 mg/dL 4:54 AM [facility] GFR Estimate 42 (L) >60 11/06/2018 [place] mL/min/{1. 4:[address] [facility] 73_m2} [facility] Comment: Non GFR Calc Starting 10/05/2018, serum creatinine ba sed estimated GFR (eGFR) will be calculated using the Chronic Kidney Dise [facility] Epidemiology Collaboration (CKD-EPI) equation. GFR Estimate If 49 (L) >60 mL/min/{1.73_m2} 11/06/2018 4: 54 AM [place] Black [facility] Comment: GFR Calc Starting 10/05/2018, serum creatinine ba sed estimated GFR (eGFR) will be calculated using the Chronic Kidney Dise [facility] Epidemiology Collaboration (CKD-EPI) equation. Calcium 7.8 (L) 8.5 - 10.1 mg/dL 11/06/2018 4:54 AM [facility] Specimen Anatomical Collection Method Collection Time Receive d Time (Source) Location / / Volume Laterality Blood specimen 11/06/2018 4:15 AM 019 4:25 (specimen) BELT PRESS OPERATOR AM [facility] Bessy Mccray MD LAB - BLOOD ORDERABLES Performing Organization Address City/State/ZIP Code Phon e Number [facility] [address] [place] [address] [facility] [address] [place] [address], [place] [phone] (ABNORMAL) CBC with platelets (11/06/2018 4:15 AM BELT PRESS OPERATOR) Analysis Performed At Patho logist Time Signature WBC 12.9 (H) 4.0 - 11.0 11/06/2018 [facility] 10e9/L 4:45 AM [facility] RBC Count 3.93 (L) 4.4 - 5.9 11/06/2018 [facility] 10e12/L 4:45 AM [facility] Hemoglobin 12.5 (L) 13.3 - 11/06/2018 [facility] 17.7 g/dL 4:45 AM [facility] Hematocrit 36.8 (L) 40.0 - 11/06/2018 [facility] 53.0 % 4:45 AM [facility] MCV 94 78 - 100 11/06/2018 [facility] fl 4:45 AM [facility] MCH 31.8 26.5 - 11/06/2018 [facility] 33.0 pg 4:45 AM [facility] MCHC 34.0 31.5 - 11/06/2018 [facility] 36.5 g/dL 4:45 AM [facility] RDW 13.2 10.0 - 11/06/2018 [facility] 15.0 % 4:45 AM [facility] Platelet Count 153 150 - 450 11/06/2018 [facility] 10e9/L 4:45 AM [facility] Specimen Anatomical Collection Method Collection Time Receive d Time (Source) Location / / Volume Laterality Blood specimen 11/06/2018 4:15 AM 019 4:25 (specimen) BELT PRESS OPERATOR AM BELT PRESS OPERATOR Bessy Mccray MD LAB - BLOOD ORDERABLES Performing Organization Address City/State/ZIP Code Phon e Number [facility] [address] [place] [address] [facility] [address] [address], [place] [phone] (ABNORMAL) Glucose by meter (11/06/2018 1:12 AM BELT PRESS OPERATOR) P athologist Signature Glucose 126 (H) 70 - 99 11/06/2018 [facility] mg/dL 1:24 AM BELT PRESS OPERATOR TEST, GLUCOSE Specimen Anatomical Collection Method Collection Time Receive d Time (Source) Location / / Volume Laterality 11/06/2018 1:12 AM 9 1:24 BELT PRESS OPERATOR AM BELT PRESS OPERATOR Juan Lewis MD LAB - BEAKER POCT Performing Organization Address City/State/ZIP [facility] Phon e Number [facility] POINT OF CARE TEST, GLUCOSE POINT OF CARE TEST, GLUCOSE Methicillin Resist/Sens S. aureus PCR (11/05/2018 11:41 PM BELT PRESS OPERATOR) [facility] gist Method Time Signature Specimen Nares 11/05/2018 [place] Description 11:45 PM BELT PRESS OPERATOR [facility] Methicillin Negative NEG^Negat 11/06/2018 [facility] Resist/Sens S. shin 2:36 AM [facility] MEDICAL aureus PCR [facility] Comment: MRSA Negative: SA Negative ??MRSA and St aphylococcus aureus target DNA not detected, presumed negative for MRSA and SA colonization or the number of bacteria present may be below the limit of detection for the assay. FDA approved assay performed using [employer] eneXpert(R) real-time PCR. Specimen (Source) Anatomical Collection Method Collection Time Re ceived Time Location / / Volume Laterality Nasal structure 11/05/2018 11:41 11/06/19 19 (body structure) PM BELT PRESS OPERATOR Bessy Mccray MD LAB - MICRO GENERAL ORDERABL ES Performing Organization Address City/[facility] [address]/[facility] [email or web address] Code Phon e Number [facility] [address] [place] [address] [facility] [address] [place] [address], U [phone] (ABNORMAL) Glucose by meter (11/05/2018 8:16 PM BELT PRESS OPERATOR) P athologist Signature Glucose 128 (H) 70 - 99 11/05/2018 [facility] mg/dL 8:28 PM BELT PRESS OPERATOR TEST, GLUCOSE Specimen Anatomical Collection Method Collection Time Receive d Time (Source) Location / / Volume Laterality 11/05/2018 8:16 PM 9 8:28 BELT PRESS OPERATOR PM BELT PRESS OPERATOR Juan Lewis MD LAB - BEFOUZIA POCT Performing Organization Address City/State/ZIP Code Phon e Number [facility] POINT OF CARE TEST, GLUCOSE POINT OF CARE TEST, GLUCOSE (ABNORMAL) Glucose by meter (11/05/2018 4:39 PM BELT PRESS OPERATOR) P athologist Signature Glucose 124 (H) 70 - 99 11/05/2018 [facility] mg/dL 4:50 PM BELT PRESS OPERATOR TEST, GLUCOSE Specimen Anatomical Collection Method Collection Time Receive d Time (Source) Location / / Volume Laterality 11/05/2018 4:39 PM 9 4:50 BELT PRESS OPERATOR PM BELT PRESS OPERATOR Juan Lewis MD LAB - BEFOUZIA POCT Performing Organization Address City/State/ZIP Code Phon e Number [facility] POINT OF CARE TEST, GLUCOSE POINT OF CARE TEST, GLUCOSE (ABNORMAL) CBC with platelets (11/05/2018 4:35 PM BELT PRESS OPERATOR) Analysis Performed At Patho logist Time Signature WBC 7.3 4.0 - 11.0 11/05/2018 [facility] 10e9/L 5:22 PM [facility] RBC Count 4.35 (L) 4.4 - 5.9 11/05/2018 [facility] 10e12/L 5:22 PM [facility] Hemoglobin 13.7 13.3 - 11/05/2018 [facility] 17.7 g/dL 5:22 PM [facility] Hematocrit 40.9 40.0 - 11/05/2018 [facility] 53.0 % 5:22 PM [facility] MCV 94 78 - 100 11/05/2018 [facility] fl 5:22 PM [facility] MCH 31.5 26.5 - 11/05/2018 [facility] 33.0 pg 5:22 PM [facility] MCHC 33.5 31.5 - 11/05/2018 [facility] 36.5 g/dL 5:22 PM [facility] RDW 13.1 10.0 - 11/05/2018 [facility] 15.0 % 5:22 PM [facility] Platelet Count 108 (L) 150 - 450 11/05/2018 [facility] 10e9/L 5:22 PM [facility] Specimen Anatomical Collection Method Collection Time Receive d Time (Source) Location / / Volume Laterality Blood specimen 11/05/2018 4:35 PM 019 5:17 (specimen) BELT PRESS OPERATOR PM BELT PRESS OPERATOR Bessy Mccray MD LAB - BLOOD ORDERABLES Performing Organization Address City/State/ZIP Code Phon e Number M [facility] [address] [place] [address] [phone] [facility] [address] [place] [address], [place] [phone] INR (11/05/2018 4:35 PM BELT PRESS OPERATOR) P athologist Signature INR 1.03 0.86 - 1.14 11/05/2018 [place] 5:33 PM [facility] Specimen Anatomical Collection Method Collection Time Receive d Time (Source) Location / / Volume Laterality Blood specimen 11/05/2018 4:35 PM 019 5:17 (specimen) BELT PRESS OPERATOR PM BELT PRESS OPERATOR Bessy Mccray MD LAB - BLOOD ORDERABLES Performing Organization Address City/State/ZIP Code Phon e Number M [facility] [address] [place] [address] [phone] [facility] [address] [place] [address], [place] [phone] Lactic acid whole blood (11/05/2018 4:35 PM BELT PRESS OPERATOR) P athologist Signature Lactic Acid 1.0 0.7 - 2.0 11/05/2018 [place] mmol/L 5:[address] [facility] Specimen Anatomical Collection Method Collection Time Receive d Time (Source) Location / / Volume Laterality Blood specimen 11/05/2018 4:35 PM 019 5:18 (specimen) BELT PRESS OPERATOR PM BELT PRESS OPERATOR Bessy Mccray MD LAB - BLOOD ORDERABLES Performing Organization Address City/State/ZIP Code Phon e Number [facility] [address] [place] [address] [phone] [facility] [address] [place] [address], [place] [phone] (ABNORMAL) Basic metabolic panel (11/05/2018 4:35 PM BELT PRESS OPERATOR) Analysis Performed At Patho logist Time Signature Sodium 143 133 - 144 11/05/2018 [place] mmol/L 5:38 PM [facility] Potassium 4.3 3.4 - 5.3 11/05/2018 [facility] mmol/L 5:38 PM [facility] Chloride 113 (H) 94 - 109 11/05/2018 [facility] mmol/L 5:38 PM [facility] Carbon Dioxide 22 20 - 32 11/05/2018 [facility] mmol/L 5:43 PM [facility] Anion Gap 8 3 - 14 11/05/2018 [facility] mmol/L 5:43 PM [facility] Glucose 121 (H) 70 - 99 11/05/2018 [facility] mg/dL 5:43 PM [facility] Urea Nitrogen 24 7 - 30 11/05/2018 [facility] mg[facility] 5:43 PM [facility] Creatinine 1.30 (H) 0.66 - 11/05/2018 [facility] 1.25 mg/dL 5:43 PM [facility] GFR Estimate 53 (L) >60 11/05/2018 [place] mL/min/{1. 5:[address] [facility] 73_m2} [facility]OSPITAL Comment: Non GFR Calc Starting 10/05/2018, serum creatinine ba sed estimated GFR (eGFR) will be calculated using the Chronic Kidney Dise [facility] Epidemiology Collaboration (CKD-EPI) equation. GFR Estimate If 61 >60 mL/min/{1.73_m2} 11/05/2018 5: 43 PM [facility] Comment: GFR Calc Starting 10/05/2018, serum creatinine ba sed estimated GFR (eGFR) will be calculated using the Chronic Kidney Dise [facility] Epidemiology Collaboration (CKD-EPI) equation. Calcium 8.6 8.5 - 10.1 mg/dL 11/05/2018 5:43 PM [facility] Specimen Anatomical Collection Method Collection Time Receive d Time (Source) Location / / Volume Laterality Blood specimen 11/05/2018 4:35 PM 019 5:17 (specimen) BELT PRESS OPERATOR PM [facility] Bessy Mccray MD LAB - BLOOD ORDERABLES Performing Organization Address City/State/ZIP Code Phon e Number [facility] [address] [place] [address] [facility] [address] [place] [address], U [phone] IR Thoracic Endovascular Stent Graft (11/05/2018 12:09 PM BELT PRESS OPERATOR) Anatomical Region Laterality Modality Chest Radio Fluoroscopy Specimen (Source) Anatomical Location Collection Method / Collectio n Time Received Time / Laterality Volume Impressions 11/06/2018 3:33 PM BELT PRESS OPERATOR IMPRESSION: Successful deployment in 2 components for [...] KANNAN MORSE MD Narrative 11/06/2018 3:33 PM BELT PRESS OPERATOR INTERVENTIONAL RADIOLOGY THORACIC ENDOVASCULAR STENT GRAFT ??11/05/2018 [...] Plan is for endovascular repair with Med [employer] Valiant Navion stent graft system. TECHNIQUE: Please [...] tion. Over a series of maneuvers, 6 Armenian vascular sheath was placed. From left groin [...] cutdown was performed by Drs. Brown and Tomaas Chou for access to the left comm [...] tion. Over a series of maneuvers, 6 Armenian vascular sheath was placed. From left groin [...] Drain Placement w Fluoro (11/05/2018 9:10 AM BELT PRESS OPERATOR) Anatomical Region Laterality Modality Spine Radio Fluoroscopy Specimen (Source) Anatomical Location Collection Method / Collectio n Time Received Time / Laterality Volume Narrative 11/05/2018 9:19 AM BELT PRESS OPERATOR [facility] RADIOLOGY INTERVENTIONAL NEURORADIOLOGY PROCEDURAL NOTE FLUOROSCOPICALLY GUIDED [...] codes included for physician referen ce only: [id number] MISSAEL GARCIA MD Procedure Note Missael Garcia [...] codes included for physician referen ce only: [id number] MISSAEL GARCIA MD Butch Brown MD IMG IR ORDERABLES EKG 12-lead, tracing only (11/05/2018 6:58 AM BELT PRESS OPERATOR) [facility] gist Method Time Signature Interpretation ECG Click View RADIOLOGY Image link RESULTS to view waveform and result Specimen (Source) Anatomical Collection Method Collection Time Re ceived Time Location / / Volume Laterality 11/05/2018 6:58 AM BELT PRESS OPERATOR Juan Lewis MD ECG ORDERABLES Performing Organization Address City/State/ZIP Code Phon e Number RADIOLOGY RESULTS Potassium (11/05/2018 6:55 AM BELT PRESS OPERATOR) P athologist Signature Potassium 4.3 3.4 - 5.3 11/05/2018 [place] mmol/L 7:15 AM [facility] Specimen Anatomical Collection Method Collection Time Receive d Time (Source) Location / / Volume Laterality Blood specimen 11/05/2018 6:55 AM 019 6:56 (specimen) BELT PRESS OPERATOR AM BELT PRESS OPERATOR Zakia Tobin MD LAB - BLOOD ORDERABLES Performing Organization Address City/State/ZIP Code Phon e Number [facility] [address] [place] [address] [facility] [address] [place] [address], [place] [phone] Lipid panel (11/05/2018 6:55 AM BELT PRESS OPERATOR) Analysis Performed At Patho logist Time Signature Cholesterol 128 <200 mg/dL 11/05/2018 [facility] 7:20 AM [facility] Triglycerides 125 <150 mg/dL 11/05/2018 [facility] 7:21 AM [facility] HDL Cholesterol 59 >39 mg/dL 11/05/2018 [facility] 7:23 AM [facility] LDL Cholesterol 44 <100 mg/dL 11/05/2018 [facility] Calculated 7:23 AM [facility] Comment: Desirable: <100 mg/dl Non HDL Cholesterol 69 <130 mg/dL 11/05/2018 7:23 AM [facility] Specimen Anatomical Collection Method Collection Time Receive d Time (Source) Location / / Volume Laterality Blood specimen 11/05/2018 6:55 AM 019 6:56 (specimen) BELT PRESS OPERATOR AM BELT PRESS OPERATOR Juan Lewis MD LAB - BLOOD ORDERABLES Performing Organization Address City/State/ZIP Code Phon e Number [facility] [address] [place] [address] [facility] [address] [place] [address], [place] [phone] Hemoglobin A1c (11/05/2018 6:55 AM BELT PRESS OPERATOR) athologist Signature Hemoglobin A1C 5.2 0 - 5.6 % 11/05/2018 [place] 7:30 AM [facility] Comment: Normal <5.7% Prediabetes 5.7-6.4% ??Diab etes 6.5% or higher - adopted from ADA consensus guidelines. Specimen Anatomical Collection Method Collection Time Receive d Time (Source) Location / / Volume Laterality Blood specimen 11/05/2018 6:55 AM 019 6:56 (specimen) BELT PRESS OPERATOR AM BELT PRESS OPERATOR Juan Lewis MD LAB - BLOOD ORDERABLES Performing Organization Address City/State/ZIP Code Phon e Number [facility] [address] [address] [phone] [facility] [address] [place] [address], U [phone] (ABNORMAL) Creatinine (11/05/2018 6:55 AM [facility]) athologist Signature Creatinine 1.52 (H) 0.66 - 11/05/2018 [place] 1.25 mg/dL 7:20 AM [facility] GFR Estimate 44 (L) >60 11/05/2018 [place] mL/min/{1. 7:[address] [facility] 73_m2} [facility] Comment: Non GFR Calc Starting 10/05/2018, serum creatinine ba sed estimated GFR (eGFR) will be calculated using the Chronic Kidney Dise [facility] Epidemiology Collaboration (CKD-EPI) equation. GFR Estimate If 51 (L) >60 mL/min/{1.73_m2} 11/05/2018 7: 20 AM [place] Black [facility] Comment: GFR Calc Starting 10/05/2018, serum creatinine ba sed estimated GFR (eGFR) will be calculated using the Chronic Kidney Dise [facility] Epidemiology Collaboration (CKD-EPI) equation. Specimen Anatomical Collection Method Collection Time Receive d Time (Source) Location / / Volume Laterality Blood specimen 11/05/2018 6:55 AM 019 6:56 (specimen) BELT PRESS OPERATOR AM BELT PRESS OPERATOR Juan Lewis MD LAB - BLOOD ORDERABLES Performing Organization Address City/State/ZIP Code Phon e Number [facility] [address] [address] [phone] [facility] [address] [address], [facility] [phone] XR Chest Port 1 View (11/05/2018 6:40 AM BELT PRESS OPERATOR) Anatomical Region Laterality Modality Chest Digital Radiography Specimen (Source) Anatomical Location Collection Method / Collectio n Time Received Time / Laterality Volume Impressions 11/05/2018 6:58 AM BELT PRESS OPERATOR IMPRESSION: No acute abnormality. TORI SANTIZO MD Narrative 11/05/2018 6:58 AM BELT PRESS OPERATOR XR CHEST PORTABLE 1 VIEW ?? 11/05/2018 [...] CARDIAC - HIM SCAN (09/24/2018 12:00 AM BELT PRESS OPERATOR) Specimen (Source) Anatomical Location Collection Method / [...] tablet 975 mg Given 11/08/2018 11:04 PM BELT PRESS OPERATOR 975 mg 975 mg, Oral, EVERY 6 HOURS PRN, mild pain, fever, Starting on Thu11/05/18 at 1827, Maximum acetaminophen dose from all sources = 75 mg/kg/day not to exceed 4 grams/day. Given 11/08/2018 12:37 PM BELT PRESS OPERATOR 975 mg Given 11/07/2018 11:03 AM BELT PRESS OPERATOR 975 mg alum & mag hydroxide-simethicone (MYLANTA Given 11/08/2018 2:48 AM BELT PRESS OPERATOR 30 mLs ES/MAALOX ES) suspension 30 mL 30 mL, Oral, EVERY 4 HOURS PRN, indigestion, Starting on Thu11/05/18 at 1510, Shake well. apixaban ANTICOAGULANT (ELIQUIS) tablet 2.5 Given 10/20 12:04 PM BELT PRESS OPERATOR 2.5 mg mg 2.5 mg, Oral, 2 TIMES DAILY, First dose on Thu11/09/18 at 1115 atorvastatin (LIPITOR) tablet 40 mg Given 11/08/2018 8:20 PM BELT PRESS OPERATOR 40 mg 40 mg, Oral, EVERY EVENING, First dose on Thu11/05/18 at 2000 Given 11/07/2018 7:49 PM BELT PRESS OPERATOR 40 mg Given 11/06/2018 9:16 PM BELT PRESS OPERATOR 40 mg calcium carbonate (TUMS) chewable tablet Given 11/07/2018 10 :34 PM BELT PRESS OPERATOR 1,000 mg 1,000 mg 1,000 mg, Oral, EVERY 2 HOURS PRN, heartburn, Starting on Thu11/06/18 at 0408, Do not give if calcium level greater than 10 mg/dL. Given 11/07/2018 12:05 AM BELT PRESS OPERATOR 1,000 mg Given 11/06/2018 4:50 AM BELT PRESS OPERATOR 1,000 mg clindamycin (CLEOCIN) infusion 900 New Bag 11/06/2018 2:05 AM BELT PRESS OPERATOR 900 mg 50 mL/hr mg Routine, 900 mg, Intravenous, EVERY 8 HOURS, First dose on Thu11/05/18 at 1800, For 2 doses, Indications: Perioperative Pharmacoprophylaxis, Post-procedure New Bag 11/05/2018 6:08 PM BELT PRESS OPERATOR 900 mg 50 mL/hr cyclobenzaprine (FLEXERIL) tablet 5-10 m g Given 11/08/2018 3:58 AM BELT PRESS OPERATOR 10 mg 5-10 mg, Oral, 3 TIMES DAILY PRN, muscle spasms, Starting on Thu11/07/18 at 1153 Given 11/07/2018 2:26 PM BELT PRESS OPERATOR 5 mg dextrose 5% and 0.45% NaCl infusion New Bag 11/08/2018 6:44 PM BELT PRESS OPERATOR 75 mL/hr at 75 mL/hr, Intravenous, CONTINUOUS, Starting on Thu11/07/18 at 1200, Until Thu11/09/18 at 0731 Restarted 11/08/2018 4:21 PM BELT PRESS OPERATOR 75 mL/hr New Bag 11/08/2018 7:35 AM BELT PRESS OPERATOR 100 mL/hr diphenhydrAMINE (BENADRYL) injection 12. 5 mg 12.5 mg, Intravenous, EVERY 6 HOURS PRN, itching, Only give if patient unable to take PO., Starting on Thu11/05/18 at 151 0, Caution to be used when administering multiple [employer] depressing meds within a sh ort time frame. For ordered IV doses 1-50 mg, give IV Push undiluted. Give each 25 mg over a minimum of 1 minute. Extend in non-emergency diphenhydrAMINE (BENADRYL) solution 12.5 mg 12.5 mg, Oral, EVERY 6 HOURS PRN, itchin g, Starting on Thu11/05/18 at 1510, Caution to be used when administering multiple [employer] depressing meds within a short time frame. fentaNYL (PF) (SUBLIMAZE) 100 MCG/2ML in jection Starting on Thu11/05/18 at 0841, For 1 d ose, Gwen Rivas : cabinet override For ordered IV doses 1-100 mcg give IV Push undiluted over a minimum of 3-5 minutes. fentaNYL (PF) (SUBLIMAZE) injection 100 mcg Given 11/05/2018 7:45 AM BELT PRESS OPERATOR 50 mcg 100 mcg, Intravenous, ONCE, Administer over 3-5 Minutes, On Thu11/05/18 at 0745, For 1 dose, For ordered IV doses 1-100 mcg give IV Push undiluted over a minimum of 3-5 minutes., Pre-procedure Given 11/05/2018 7:31 AM BELT PRESS OPERATOR 50 mcg fentaNYL (PF) (SUBLIMAZE) injection 25-5 0 mcg Given 11/05/2018 8:48 AM BELT PRESS OPERATOR 50 mcg 25-50 mcg, Intravenous, EVERY 5 [...] 50 m cg Given 11/05/2018 1:33 PM BELT PRESS OPERATOR 50 mcg 50 mcg, Intravenous, EVERY 5 MIN PRN, moderate to severe pain, Administer over 3-5 Minutes, Starting on Thu11/05/18 at 1333, For ordered IV doses 1-100 mcg give IV Push undiluted over a minimum of 3-5 minutes., PACU hydrALAZINE (APRESOLINE) injection 10-20 mg Given 11/08/2018 7:03 PM BELT PRESS OPERATOR 10 mg 10-20 mg, Intravenous, EVERY 1 [...] over 1 minute. Given 11/08/2018 11:51 AM BELT PRESS OPERATOR 20 mg Given 11/08/2018 3:36 AM BELT PRESS OPERATOR 20 mg labetalol (NORMODYNE/TRANDATE) 5 MG/ML i njection Starting on Thu11/05/18 at 1521, For 1 d [employer] thomas Doreen : cabinet override For ordered doses up to 80 mg, give IV Push undiluted. Give each 20 mg over 2 minutes. labetalol (NORMODYNE/TRANDATE) injection 10 mg Given 11/05/2018 3:43 PM BELT PRESS OPERATOR 10 mg 10 mg, Intravenous, EVERY 10 [...] 2 minutes., Post-procedure Given 11/05/2018 3:25 PM BELT PRESS OPERATOR 10 mg labetalol (NORMODYNE/TRANDATE) injection 10 mg Given 11/05/2018 1:45 PM BELT PRESS OPERATOR 10 mg 10 mg, Intravenous, ONCE, Administer over 2-8 Minutes, On Thu11/05/18 at 1400, For 1 dose, For ordered doses up to 80 mg, give IV Push undiluted. Give each 20 mg over 2 minutes., PACU labetalol (NORMODYNE/TRANDATE) injection 10-20 Given 0 11/08/2018 3:03 AM BELT PRESS OPERATOR 10 mg mg 10-20 mg, Intravenous, EVERY [...] over 2 minutes. Given 11/08/2018 2:33 AM BELT PRESS OPERATOR 20 mg Given 11/07/2018 10:35 PM BELT PRESS OPERATOR 10 mg labetalol (NORMODYNE/TRANDATE) injection 20 Given 11/05/2018 12:37 PM BELT PRESS OPERATOR 10 mg mg 20 mg, Intravenous, ONCE, Administer over 2-8 Minutes, On Thu11/05/18 at 1315, For 1 dose, For ordered doses up to 80 mg, give IV Push undiluted. Give each 20 mg over 2 minutes., Pre-procedure labetalol (NORMODYNE/TRANDATE) injection 5 mg Given 11/05/2018 1:13 PM BELT PRESS OPERATOR 5 mg 5 mg, Intravenous, ONCE, Administer over 2-8 Minutes, On Thu11/05/18 at 1315, For 1 dose, For ordered doses up to 80 mg, give IV Push undiluted. Give each 20 mg over 2 minutes., PACU lactated ringers infusion New Bag 11/05/2018 6:52 AM BELT PRESS OPERATOR 25 mL/hr at 25 mL/hr, Intravenous, CONTINUOUS, IF patient NOT on dialysis., Pre-procedure, Starting on Thu11/05/18 at 0645, Until Thu11/05/18 at 0836 lidocaine 1 % 1 mL Given 11/05/2018 6:53 AM BELT PRESS OPERATOR 0.3 mLs 1 mL, Other, EVERY 1 [...] 2 5 mg Given 11/08/2018 8:22 AM BELT PRESS OPERATOR 25 mg 25 mg, Oral, 2 TIMES DAILY, First dose (after last modification) on Thu11/05/18 at 1615 Given 11/07/2018 7:49 PM BELT PRESS OPERATOR 25 mg Given 11/07/2018 11:14 AM BELT PRESS OPERATOR 25 mg metoprolol tartrate (LOPRESSOR) tablet 5 0 mg Given 11/09/2018 8:28 AM BELT PRESS OPERATOR 50 mg 50 mg, Oral, 2 TIMES DAILY, First dose on Thu11/08/18 at 2100, Hold for SBP < 90, HR < 50 Given 11/08/2018 8:20 PM BELT PRESS OPERATOR 50 mg midazolam (VERSED) 1 MG/ML injection Starting on Thu11/05/18 at 0841, For 1 d Rob thomas Callie : cabinet override For ordered IV doses 0.1-2.5 mg give IV Push slowly titrat ed over a minimum of 2 minutes. Dilute each 1mg in 4mL of NS. midazolam (VERSED) injection 0.5-1 mg Given 11/05/2018 8:48 AM BELT PRESS OPERATOR 1 mg 0.5-1 mg, Intravenous, Administer over [...] injection 4 mg Given 11/05/2018 7:53 AM BELT PRESS OPERATOR 1 mg 4 mg, Intravenous, Administer over 2 Minutes, EVERY 4 MIN PRN, anxiety, Starting on Thu11/05/18 at 0732, For ordered IV doses 0.1-2.5 mg give IV Push slowly titrated over a minimum of 2 minutes. Dilute each 1mg in 4mL of NS., Pre-procedure Given 11/05/2018 7:49 AM BELT PRESS OPERATOR 1 mg Given 11/05/2018 7:38 AM BELT PRESS OPERATOR 1 mg omeprazole (priLOSEC) CR capsule 20 mg Given 11/09/2018 6:33 AM BELT PRESS OPERATOR 20 mg 20 mg, Oral, EVERY MORNING BEFORE BREAKFAST, First dose on 11/07/18 at 2345 Given 11/08/2018 8:22 AM BELT PRESS OPERATOR 20 mg Given 11/07/2018 11:48 PM BELT PRESS OPERATOR 20 mg ondansetron (ZOFRAN) injection 4 mg Given 11/07/2018 11:48 PM BELT PRESS OPERATOR 4 mg 4 mg, Intravenous, EVERY 6 [...] half-tab 2.5-5 mg Given 11/08/2018 12:37 PM BELT PRESS OPERATOR 5 mg 2.5-5 mg, Oral, EVERY 4 HOURS PRN, moderate to severe pain, Starting on Thu11/05/18 at 1724 Given 11/08/2018 6:19 AM BELT PRESS OPERATOR 5 mg Given 11/07/2018 7:49 PM BELT PRESS OPERATOR 5 mg phenylephrine Rate/Dose Change 11/06/2018 6:45 0.3 mcg/kg/min 7.6 mL/ hr (OSIEL-SYNEPHRINE) 50 mg PM BELT PRESS OPERATOR in sodium chloride 0.9 % 250 mL [...] goals. Vesicant. Rate/Dose Change 11/06/2018 6:15 PM BELT PRESS OPERATOR 0.5 mcg/kg/min 12.6 mL/hr Rate/Dose Change 11/06/2018 5:34 PM BELT PRESS OPERATOR 0.7 mcg/kg/min 17.7 mL/hr sennosides (SENOKOT) tablet 8.6 mg Given 11/08/2018 3:36 AM BELT PRESS OPERATOR 8.6 mg 8.6 mg, Oral, 2 TIMES DAILY PRN, constipation, Starting on Thu11/08/18 at 0250 sodium chloride (PF) 0.9% PF flush 3 mL Given 11/07/2018 4:12 PM BELT PRESS OPERATOR 3 mLs 3 mL, Intracatheter, EVERY 8 HOURS, First dose on Thu11/05/18 at 1515, And Q1H PRN, to lock peripheral IV dormant line. Given 11/07/2018 11:34 AM BELT PRESS OPERATOR 3 mLs Given 11/07/2018 12:06 AM BELT PRESS OPERATOR 10 mLs sodium chloride 0.9% infusion New Bag 11/06/2018 7:48 PM BELT PRESS OPERATOR 100 mL/hr at 100 mL/hr, Intravenous, CONTINUOUS, For patient on renal dialysis. Saline lock after 1 liter if taking PO fluids., Post-procedure, Starting on Thu11/05/18 at 1515, Until Thu11/08/18 at 1245 New Bag 11/06/2018 12:08 PM BELT PRESS OPERATOR 100 mL/hr New Bag 11/06/2018 2:33 AM BELT PRESS OPERATOR 100 mL/hr terazosin (HYTRIN) capsule 5 mg Given 11/08/2018 9:21 PM BELT PRESS OPERATOR 5 mg 5 mg, Oral, AT BEDTIME, First dose on Thu11/05/18 at 2200 documented in this encounter Active and Recently Administered Medications Times are shown in BELT PRESS OPERATOR. Scheduled Medication Order 11/07/2018 11/08/2018 11/09/2018 apixaban [...] Caution to be used when administering multiple [employer] depressing meds within a short time frame. For ordered IV doses 1-50 m g, give IV Push undiluted. Give each 25mg over a minimum of 1 minute. Extend in non-emergency diphenhydrAMINE (BENADRYL) solution 12.5 mg(Linked Group 1) 12.5 mg, Oral, EVERY 6 HOURS PRN, itchin g, Starting 11/05/18 at 1510, Caution to be used when administering multiple [employer] depressing meds within a short time frame. hydrALAZINE (APRESOLINE) injection 10-20 mg 0155 (Give n - Provider: Ramiro Lozano RN)0343 (Given - Provider: Ramiro Lozano RN)1053 (Given - Provider: Danette Peck RN) 0336 (Given - Provider: Kristy Castañeda, JOSE )1151 (Given - Provider: Aura Crooks RN)1903 (Given - Provider: Misty Villalobos RN) [...]
Caution to be used when administering multiple [employer] depressing meds within a short time frame.
Or diphenhydrAMINE (BENADRYL) injection 12.5 mgJump to med 12.5 mg, Intravenous, EVERY 6 HOURS PRN, itching, Only give if patient unable to take PO., Starting Thu11/05/18 at 1510
Caution to be used when administering multiple [employer] depressing meds within a short time frame. [...] documented as of this encounter Care Teams Vice President Global Advertising Sales Relationship Specialty Start Date End Date [facility] - [facility] [address] [place] [address] documented as of this encounter
--- OUTSIDE RECORDS SUMMARY | 2022-05-30 08:44 | XMS_ITS | Encounter Summary ---
:1940 Author Organization [facility] Address [address] [facility] 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 Periop Services Procedures ENDOVASCULAR REPAIR ANEURYSM THORACIC AORTIC [address], [address] [place] [address] Phone: Referral ID Status Reason Start Date Expiration Date Visits Requ ested Visits Authorized [id number] 1 1 Encounter Details Date Type Department Care Team Description 11/05/2018 Surgery [facility] Juan Lewis THORACIC ENDOVASCULAR [place] PeriOP MD Elijah ANEURYSM REPAIR WITH Services [address] [employer] [address], [address] [place] [address] [place] [address] [phone] Surgery Details Date/Time Status Location OR Service [...] Comments Blood Pressure 159/88 11/05/2018 9:00 AM LEADITE MAN Pulse 57 11/05/2018 9:00 AM LEADITE MAN Temperature 36.7 ??C (98.1 ??F) 11/05/2018 6:27 AM LEADITE MAN Respiratory Rate 21 11/05/2018 9:05 AM LEADITE MAN Oxygen Saturation 100% 11/05/2018 9:05 AM LEADITE MAN Inhaled Oxygen Concentration - - Weight 84.3 kg (185 lb 14.4 oz) 11/05/2018 6:27 AM LEADITE MAN Height 167.6 cm (5' 6) 11/05/2018 6:27 AM LEADITE MAN Body Mass Index 31.06 11/05/2018 6:27 AM LEADITE MAN documented in this encounter Discharge Summaries Bessy Mccray MD - 11/09/2018 10:56 AM CST Physician Discharge Summary Patient ID: Speedy Hendricks [id number] 78 year old 1940 Admit date: 11/05/2018 [...] an oral diet. He was discharged to [facility] on POD#4 in stable condition. Consults: pulmonary/intensive [...] to. Signed: Bessy Mccray 11/09/2018 10:56 AM ITE MAN Associated attestation - Juan Lewis MD - 11/11/2018 3:10 PM LEADITE MAN Physician Attestation I, Juan Lewis, have reviewed [...] Traylor RN - 11/09/2018 11:47 AM CST ITE MAN AttachmentsThe following attachments cannot be sent through Care Everywhere.(S) TREATING A THORACIC AORTIC ANEURYSM (TAA): ENDOVASCULAR GRAFT (MALTESE) documented in this encounter Medications at Time [...] home with family via car.All questions answered. ITE MAN Gurwinder Godoy MD - 11/09/2018 12:02 PM CST [facility] Vascular Medicine Progress Note Date of Service (when I saw the patient): 11/09/2018 Physician Supervisory Attestation: I have reviewed and discussed with the physician mail handler assistant their history, physical and plan and [...] Discussed with vascular surgery service. Gurwinder Godoy MD,[facility] Vascular Medicine service 11/09/2018 Assessment & [...] Rate: 93 Resp: 22 SpO2: 93 % [id number]: None (Room air) Vitals: 11/06/18 0211 11/07/18 [...] = values in this interval not displayed. ITE MAN Bessy Mccray MD - 11/09/2018 7:36 AM [...] Bessy Martinez MD Vascular Surgery Fellow Pager ITE MAN Associated attestation - Butch Brown MD - 11/16/2018 9:50 AM LEADITE MAN I was involved with the assessment and plan, and I agree with the findings and plan of care as documented in the fellow's note. MD Wilfredo Castillo Carley, RN - 11/08/2018 6:35 PM CST Pt arrived to station 33 @ 1820 ITE MAN Aura Crooks RN - 11/08/2018 5:05 PM CST Pt had drained removed this AM. Draining moderate amount- MDA aware. SR. BP wnl- gave hydralazine x1prn. Chapman to be removed prior to transfer. Lines out and hemostasis achieved. Up to chair- tolerated well, SBA. Frequent neuros- wnl. Will call report to [facility] and will transfer at . ITE MAN Dimas Chapman MD - 11/08/2018 12:41 PM CST [facility] Vascular Medicine Progress Note Date of [...] -- AST 19 -- -- -- -- ITE MAN Bessy Mccray MD - 11/08/2018 8:18 AM [...] Bessy Martinez MD Vascular Surgery Fellow Pager ITE MAN Associated attestation - Butch Brown MD - 11/16/2018 3:00 PM LEADITE MAN I was involved with the assessment and [...] please contact primary service first. Kaleb Rodriguez ITE MAN Kristy Castañeda RN - 11/08/2018 6:50 AM CST [address] Tobin at bedside and removed lumbar drain. Pt tolerated well. Neuro checks q 30 min for the next 6 hours. Dry gaze and Tegaderm to site. Kristy Gamez RN ITE MAN Zakia Tobin MD - 11/08/2018 6:47 AM [...] drain tubing following unclamping. [place]ts [place] 14808 down from 100s yesterday. At this time, [...] Nunes MD - 11/07/2018 11:55 AM CST Chalk Machine Operator: S: Mild groin pain this morning, [...] Dr. Staley of vascular medicine at bedside. Chalk Machine Operator service will sign off for now. Please re-consult as needed. ITE MAN Gurwinder Godoy MD - 11/07/2018 9:09 AM CST [facility] Vascular Medicine Progress Note Date of [...] If any change in neuro status contact [facility] surgery first and consider neurocritical [...] good Reviewed last night events, discussed with Chalk Machine Operator and ICU nursing staff this am. [...] . Avoid nephrotoxic meds. ?? Gurwinder Godoy MD,[facility] Vascular Medicine Interval History Reviewed last [...] 7.8* 8.6 -- GLC 115* 121* -- ITE MAN Danette Peck RN - 11/07/2018 8:50 AM [...] to keep SBP <160 and MAP >80. ITE MAN Gurwinder Godoy MD - 11/06/2018 12:00 PM CST [facility] Vascular Medicine Progress Note Date of [...] . Avoid nephrotoxic meds. ?? Gurwinder Godoy MD,[facility] Vascular Medicine Interval History Reviewed last [...] 7.8* 8.6 -- GLC 115* 121* -- ITE MAN Millie Handley APRN PATTERNMAKER GRADER - 11/06/2018 11:55 AM CST Critical Care [...] Total critical care time today 35 min. ITE MAN Associated attestation - Bishop Tran MD - 11/12/2018 10:50 AM LEADITE MAN Physician Attestation I, Bishop Tran, have reviewed [...] sufficient urine. Continue plan as documented in AMMONIA REFRIGERATION TECHNICIAN note. The patient does not seem to [...] for the 11/05/2018 admission is complete. See [facility] admission navigator for prior to admission medications Medication history source reliability:Good Medication history interview source(s):Patient Medication history resources (including written lists, pill bottles, clinic record):Patient mailed in his medication list prior to surgery Primary pharmacy.[facility] Additional medication history information not noted on BUSINESS SUPPORT med list :None Time spent in this [...] Bedtime 11/04/2018 at 2200 Yes Reported, Patient ITE MAN documented in this encounter Procedure Notes Missael [...] management per anethesia/vasc surg Missael Garcia MD [phone] ITE MAN documented in this encounter Consult Notes Kaleb Rodriguez NP - 11/05/2018 5:14 PM CSTAssociated Order(s): NEW CAR DRIVER IP CONSULT [facility] Consult Critical Care Service Date of [...] Code Status Full Code Primary Care Physician [facility] Chief Complaint S/p TEVAR History of Present [...] IR Lumbar Drain Placement w Fluoro Narrative [facility] RADIOLOGY INTERVENTIONAL NEURORADIOLOGY PROCEDURAL NOTE FLUOROSCOPICALLY GUIDED [...] CPT codes included for physician reference only: 85589/33878 MISSAEL GARCIA MD Glucose by meter Result Value Ref Range Glucose 124 (H) 70 - 99 mg/dL ITE MAN Associated attestation - Olive Bello MD - 11/05/2018 10:58 PM LEADITE MAN ICU STAFF: I have discussed Mr. Hendricks's [...] management per vascular surgery. Olive Bello MD #[id number] 11/05/18 Bill as Advanced Practice Provider only. Gurwinder Godoy MD - 11/05/2018 1:40 PM CST [facility] Vascular Medicine Consultation Date of Admission: 11/05/2018 Date of Consult (When I saw the patient): 11/05/18 Physician Supervisory Attestation: I have reviewed and discussed with the physician mail handler assistant their history, physical and plan and [...] consult Copy to Dr. Debbie Godoy MD ,[facility] Vascular Medicine 11/05/2018 Assessment & Plan [...] 78 year old male Primary Care Physician [facility] History of Present Illness Speedy Hendricks is [...] Labs Lab Test 11/05/18 0655 A1C 5.2 ITE MAN documented in this encounter Nursing Notes Isis Rivera, JOSE - 11/05/2018 8:40 AM CST Noted swelling left ankle ITE MAN documented in this encounter Miscellaneous Notes Plan [...] sites soft, bruised, CMS intact. Voiding okay. ITE MAN Plan of Care - Misty Villalobos RN - 11/08/2018 7:10 PM CST A/O x4. AVSS on RA. Tele NSR. Hydralazine given x1. Up SBA. Neuros intact. CMS intact. Groin sites, steri strips. Back site, moist drainage. Pulses, palpable, +2. Regular diet. Chapman removed at 1740, Due to void. ITE MAN Provider Notification - Aura Crooks RN - 11/08/2018 11:37 AM CST MD NOTIFICATION Person Notified: MDA Notified Person's Name: Yeimi Notification Date/Time: 11/08/2017 1135 Notification Interaction: Paged physician Purpose of Notification: Pt remains to have drainage from lumbar drain site. Orders Received: MDA to come assess pt. ITE MAN Plan of Care - Kristy Castañeda RN [...] access readiness for lumbar drain removal today. ITE MAN Provider Notification - Kristy Castañeda RN - [...] assess pulling the drain. Kristy Castañeda RN ITE MAN Plan of Care - Aura Crooks RN - 11/07/2018 6:17 PM CST Neuro: LUCAS- strength 5/5. PERRL. Complains of soreness in groin/hips from moving them too much. Ptup in chair for a hour and tolerated well. Ok'd with Anesthesia MD, [employer], to get up in chair forno more [...] some blood in tubing- Anesthesia MD aware. ITE MAN Plan of Care - Danette Peck RN - 11/07/2018 1:12 PM CST [id number] Continued with numbness bilateral top of thighs. [...] and dtr in room when Drs here. ITE MAN Provider Notification - Ramiro Lozano RN - 11/07/2018 6:17 AM CST Paged vascular surgery fellow Ashanti regarding new numbness to anterior thighs. CSF has been drained, will begin 500ml bolus unless directed otherwise. ITE MAN Plan of Care - Ramiro Lozano RN [...] clamped now. Daughter Raquel updated this morning. ITE MAN Provider Notification - Ramiro Lozano RN - 11/07/2018 5:[address] Wang regarding new leg pain and ICP increase. Opening drain for 15ml CSF over 1 hr per order. ITE MAN Plan of Care - Danette Peck RN - 11/06/2018 4:34 PM CST [id number] Neuro checks remain intact. Able to move [...] be retested for MRSA per infection control. ITE MAN Plan of Care - Ramiro Lozano RN [...] this shift. Daughter Raquel updated this morning. ITE MAN Plan of Care - Danette Peck RN - 11/05/2018 9:43 PM CST [id number] Neuro: intact. Able to move hips slightly [...] by physicians. Care transferred to next nurse. ITE MAN Provider Notification - Ramiro Lozano RN - 11/05/2018 7:46 PM CST Notified recreation facility manager regarding failure to meet MAP goal of 80, new orders received. ITE MAN Op Note - Butch Brown MD - [...] descending aortic angiogram SURGEON: Butch Brown MD MOGUL OPERATOR: Kannan Morse MD; Bessy Mas MD - [...] then able to upsized to a 6 Ivorian sheath over a Bentson wire.The patient was [...] femoral artery and upsized to an 11 Ivorian sheath. We then able to insert JULIANE [...] was removed and backfilled with a 16 Ivorian dry seal on the left.At this point [...] superficial femoral artery access which was 6 Ivorian sheath with an Angio-Seal closure device performed [...] the drain. Butch Brown MD Vascular Surgery ITE MAN Brief Op Note - Bessy Mccray MD - 11/05/2018 12:29 PM CST [facility] Brief Operative Note Pre-operative diagnosis: DESCENDING [...] Palp DP bilaterally Complications: None. Implants: None. ITE MAN Associated attestation - Butch Brown MD - 11/05/2018 1:09 PM LEADITE MAN Butch Brown MD IR Note - Gwen Rivas RN - 11/05/2018 10:27 AM CST Interventional Radiology Intra-procedural Nursing Note Patient Name: Speedy Hendricks Today's Date: November 05, 2018 Start Time: 849 End of procedure time: 904 Procedure: lumbar drain placement Report given to: Dr. See, anesthesia Time pt departs: 0920 Radiology Manager: n/a Other Notes: patient tolerated well. Drain connected to closed drainage system flushed with preservative free NS per Dr. Haro. 1mg Versed and 50mcg Fentanyl IV given for additional sedation (had received 4mg Versed and 100mcg Fentanyl in pre-op prior to arrival). SR on monitor .VSS. Patient taken back to pre-op bay in stable condition. Gwen Rivas RNsalvage cutter Radiology ITE MAN documented in this encounter Plan of Treatment Not on filedocumented as of this encounter Procedures Procedure Name Priority Date/Time Associated Comments Diagnosis CBC WITH PLATELETS & Routine 11/09/2018 7:41 AM Descending tho racic Results for this DIFFERENTIAL LEADITE MAN aortic aneurysm (H) procedur e are in the results section. COMPREHENSIVE Routine 11/09/2018 7:41 AM Descending thoracic R esults for this METABOLIC PANEL LEADITE MAN aortic aneurysm (H) proce dure are in the results section. MAGNESIUM Routine 11/08/2018 3:40 AM Descending thoracic Re sults for this LEADITE MAN aortic aneurysm (H) procedur e are in the results section. COMPREHENSIVE Routine 11/08/2018 3:40 AM Descending thoracic R esults for this METABOLIC PANEL LEADITE MAN aortic aneurysm (H) proce dure are in the results section. CBC WITH PLATELETS Routine 11/08/2018 3:40 AM Descending thora cic Results for this LEADITE MAN aortic aneurysm (H) procedur e are in the results section. CBC WITH PLATELETS STAT 11/07/2018 3:00 PM Descending thora cic Results for this LEADITE MAN aortic aneurysm (H) procedur e are in the results section. CBC WITH PLATELETS & Timed 11/07/2018 9:50 AM Descending tho racic Results for this DIFFERENTIAL LEADITE MAN aortic aneurysm (H) procedur e are in the results section. MAGNESIUM Routine 11/07/2018 9:50 AM Descending thoracic Re sults for this LEADITE MAN aortic aneurysm (H) procedur e are in the results section. BASIC METABOLIC PANEL Timed 11/07/2018 9:50 AM Descending th oracic Results for this LEADITE MAN aortic aneurysm (H) procedur e are in the results section. GLUCOSE BY METER Routine 11/07/2018 7:44 AM Descending thoraci c Results for this LEADITE MAN aortic aneurysm (H) procedur e are in the results section. GLUCOSE BY METER Routine 11/07/2018 3:49 AM Descending thoraci c Results for this LEADITE MAN aortic aneurysm (H) procedur e are in the results section. GLUCOSE BY METER Routine 11/07/2018 12:08 Descending thoracic Results for this AM LEADITE MAN aortic aneurysm (H) procedur e are in the results section. GLUCOSE BY METER Routine 11/06/2018 7:53 PM Descending thoraci c Results for this LEADITE MAN aortic aneurysm (H) procedur e are in the results section. GLUCOSE BY METER Routine 11/06/2018 11:02 Descending thoracic Results for this AM LEADITE MAN aortic aneurysm (H) procedur e are in the results section. GLUCOSE BY METER Routine 11/06/2018 7:38 AM Descending thoraci c Results for this LEADITE MAN aortic aneurysm (H) procedur e are in the results section. LACTIC ACID WHOLE Routine 11/06/2018 4:15 AM Descending thorac ic Results for this BLOOD LEADITE MAN aortic aneurysm (H) procedur e are in the results section. BASIC METABOLIC PANEL Routine 11/06/2018 4:15 AM Descending th oracic Results for this LEADITE MAN aortic aneurysm (H) procedur e are in the results section. CBC WITH PLATELETS Routine 11/06/2018 4:15 AM Descending thora cic Results for this LEADITE MAN aortic aneurysm (H) procedur e are in the results section. GLUCOSE BY METER Routine 11/06/2018 1:12 AM Descending thoraci c Results for this LEADITE MAN aortic aneurysm (H) procedur e are in the results section. MRSA MSSA PCR, NASAL STAT 11/05/2018 11:41 Descending thora cic Results for this SWAB PM LEADITE MAN aortic aneurysm (H) procedur e are in the results section. GLUCOSE BY METER Routine 11/05/2018 8:16 PM Descending thoraci c Results for this LEADITE MAN aortic aneurysm (H) procedur e are in the results section. GLUCOSE BY METER Routine 11/05/2018 4:39 PM Descending thoraci c Results for this LEADITE MAN aortic aneurysm (H) procedur e are in the results section. INR STAT 11/05/2018 4:35 PM Descending thoracic Re sults for this LEADITE MAN aortic aneurysm (H) procedur e are in the results section. LACTIC ACID WHOLE STAT 11/05/2018 4:35 PM Descending thorac ic Results for this BLOOD LEADITE MAN aortic aneurysm (H) procedur e are in the results section. BASIC METABOLIC PANEL STAT 11/05/2018 4:35 PM Descending th oracic Results for this LEADITE MAN aortic aneurysm (H) procedur e are in the results section. CBC WITH PLATELETS STAT 11/05/2018 4:35 PM Descending thora cic Results for this LEADITE MAN aortic aneurysm (H) procedur e are in the results section. IR THORACIC Routine 11/05/2018 12:09 Descending thoracic Resu lts for this ENDOVASCULAR STENT PM LEADITE MAN aortic aneurysm (H) pr ocedure are in GRAFT the results section. REPAIR, ANEURYSM, 11/05/2018 9:35 AM DESCENDING THORAC IC THORACIC AORTIC, LEADITE MAN AORTIC ANEURYSM ENDOVASCULAR Special Needs BLOOD TRANSFUSION ISSUE (RAR E ANTIBODIES) PT WILL DO A TYPE AND CROSS ON 11/03 JALEEL 10/28 IR LUMBAR DRAIN Routine 11/05/2018 9:10 AM Result s for this PLACEMENT W FLUORO LEADITE MAN procedure are in the results section. EKG 12-LEAD, TRACING STAT 11/05/2018 6:58 AM R esults for this ONLY LEADITE MAN procedure are i n the results section. POTASSIUM STAT 11/05/2018 6:55 AM Descending thoracic Re sults for this LEADITE MAN aortic aneurysm (H) procedur e are in the results section. LIPID PROFILE STAT 11/05/2018 6:55 AM Descending thoracic R esults for this LEADITE MAN aortic aneurysm (H) procedur e are in the results section. HEMOGLOBIN A1C STAT 11/05/2018 6:55 AM Descending thoracic Results for this LEADITE MAN aortic aneurysm (H) procedur e are in the results section. CREATININE STAT 11/05/2018 6:55 AM Descending thoracic Re sults for this LEADITE MAN aortic aneurysm (H) procedur e are in the results section. XR CHEST PORT 1 VIEW STAT 11/05/2018 6:40 AM R esults for this LEADITE MAN procedure are i n the results section. EKG CARDIAC - HIM 09/24/2018 12:00 AM SCAN LEADITE MAN documented in this encounter Results (ABNORMAL) CBC with platelets differential (11/09/2018 7:41 AM LEADITE MAN) Component Value Ref Test Analysis Performed At [facility] gist Range Method Time Signature WBC 9.3 4.0 - 11/09/2018 [facility] 11.0 8:06 AM [facility] 10e9/L [facility] RBC Count 3.55 (L) 4.4 - 11/09/2018 [facility] 5.9 8:06 AM [facility] [address] [place] [address] Hemoglobin 11.3 (L) 13.3 - 11/09/2018 [facility] 17.7 8:06 AM [facility] Hematocrit 33.7 (L) 40.0 - 11/09/2018 [facility] 53.0 % 8:[address] [facility] MCV 95 78 - 100 11/09/2018 [facility] fl 8:[address] [facility] MCH 31.8 26.5 - 11/09/2018 [facility] 33.0 pg 8:[address] [facility] MCHC 33.5 31.5 - 11/09/2018 [facility] 36.5 8:06 AM [facility] RDW 13.9 10.0 - 11/09/2018 [facility] 15.0 % 8:[address] [facility] Platelet Count 83 (L) 150 - 11/09/2018 [facility] 450 8:[address] Diff Method Manual 11/09/2018 [facility] Differential 8:[address] [facility] % Neutrophils 85.0 % 11/09/2018 [facility] 8:[address] [facility] % Lymphocytes 6.0 % 11/09/2018 [facility] 8:[address] [facility] % Monocytes 7.0 % 11/09/2018 [facility] 8:[address] [facility] % Eosinophils 2.0 % 11/09/2018 [facility] 8:[address] [facility] % Basophils 0.0 % 11/09/2018 [facility] 8:[address] [facility] Absolute 7.9 1.6 - 11/09/2018 [facility] Neutrophil 8.3 8:[address] Absolute 0.6 (L) 0.8 - 11/09/2018 [facility] Lymphocytes 5.3 8:[address] Absolute 0.7 0.0 - 11/09/2018 [facility] Monocytes 1.3 8:[address] Absolute 0.2 0.0 - 11/09/2018 [facility] Eosinophils 0.7 8:[address] Absolute 0.0 0.0 - 11/09/2018 [facility] Basophils 0.2 8:[address] RBC Morphology Consistent with 11/09/2018 [facility] reported results 8:[address] [facility] Platelet Automated count 11/09/2018 [facility] Estimate confirmed. 8:31 AM [facility] morphology is normal. Specimen Anatomical Collection Method Collection Time Receive d Time (Source) Location / / Volume Laterality Blood specimen 11/09/2018 7:41 AM 019 7:51 (specimen) LEADITE MAN AM LEADITE MAN Dimas Chapman MD LAB - BLOOD ORDERABLES Performing Organization Address City/State/ZIP Code Phon e Number [facility] [address] [place] [address] [facility] [address] [place] [address], [place] [phone] (ABNORMAL) Comprehensive metabolic panel (11/09/2018 7:41 AM LEADITE MAN) athologist Signature Sodium 144 133 - 144 11/09/2018 [facility] mmol/L 8:[address] [facility] Potassium 4.0 3.4 - 5.3 11/09/2018 [facility] mmol/L 8:[address] [facility] Chloride 113 (H) 94 - 109 11/09/2018 [facility] mmol/L 8:[address] [facility] Carbon Dioxide 22 20 - 32 11/09/2018 [facility] mmol/L 8:[address] [facility] Anion Gap 9 3 - 14 11/09/2018 [facility] mmol/L 8:[address] [facility] Glucose 94 70 - 99 11/09/2018 [facility] mg/dL 8:[address] [facility] Urea Nitrogen 21 7 - 30 11/09/2018 [facility] mg/dL 8:[address] [facility] Creatinine 1.24 0.66 - 11/09/2018 [facility] 1.25 mg/dL 8:[address] [facility] GFR Estimate 56 (L) >60 11/09/2018 [facility] mL/min/{1. 8:17 AM [facility] 73_m2} HOSPITAL Comment: Non GFR Calc Starting 10/05/2018, serum creatinine ba sed estimated GFR (eGFR) will be calculated using the Chronic Kidney Dise ase Epidemiology Collaboration (CKD-EPI) equation. GFR Estimate If 65 >60 mL/min/{1.73_m2} 11/09/2018 8: 17 AM [facility] Comment: GFR Calc Starting 10/05/2018, serum creatinine ba sed estimated GFR (eGFR) will be calculated using the Chronic Kidney Dise ase Epidemiology Collaboration (CKD-EPI) equation. Calcium 8.4 (L) 8.5 - 10.1 11/09/2018 8:17 AM [facility] mg/dL [facility] Bilirubin Total 1.3 0.2 - 1.3 mg/dL 11/09/2018 8:19 AM [facility] Albumin 2.4 (L) 3.4 - 5.0 g/dL 11/09/2018 8:19 AM [facility] Protein Total 6.2 (L) 6.8 - 8.8 g/dL 11/09/2018 8:19 AM [facility] Alkaline Phosphatase 72 40 - 150 U/L 11/09/2018 8:19 AM [facility] ALT 17 0 - 70 U/L 11/09/2018 8:19 AM [facility] AST 15 0 - 45 U/L 11/09/2018 8:19 AM [facility] Specimen Anatomical Collection Method Collection Time Receive d Time (Source) Location / / Volume Laterality Blood specimen 11/09/2018 7:41 AM 019 7:51 (specimen) LEADITE MAN AM LEADITE MAN Dimas Chapman MD LAB - BLOOD ORDERABLES Performing Organization Address City/State/ZIP Code Phon e Number [facility] [address] [address] [facility] [address] [address], [place] [phone] Magnesium Level scheduled every Thu (11/08/2018 3:40 AM LEADITE MAN) P athologist Signature Magnesium 1.7 1.6 - 2.3 11/08/2018 [facility] mg/dL 4:[address] [facility] Specimen Anatomical Collection Method Collection Time Receive d Time (Source) Location / / Volume Laterality Blood specimen 11/08/2018 3:40 AM 019 3:46 (specimen) LEADITE MAN AM LEADITE MAN Dimas Chapman MD LAB - BLOOD ORDERABLES Performing Organization Address City/State/ZIP Code Phon e Number [facility] [address] [address] [phone] [facility] [address] [place] [address], [place] [phone] (ABNORMAL) Comprehensive metabolic panel (11/08/2018 3:40 AM LEADITE MAN) Analysis Performed At Patho logist Time Signature Sodium 142 133 - 144 11/08/2018 [facility] mmol/L 3:[address] [facility] Potassium 4.2 3.4 - 5.3 11/08/2018 [facility] mmol/L 3:[address] [facility] Chloride 111 (H) 94 - 109 11/08/2018 [facility] mmol/L 3:[address] [facility] Carbon Dioxide 22 20 - 32 11/08/2018 [facility] mmol/L 4:[address] [facility] [facility] Anion Gap 9 3 - 14 11/08/2018 [place] mmol/L 4:[address] [facility] Glucose 164 (H) 70 - 99 11/08/2018 [place] mg/dL 4:[address] [facility] Urea Nitrogen 20 7 - 30 11/08/2018 [place] mg/dL 4:[address] [facility] Creatinine 1.29 (H) 0.66 - 11/08/2018 [place] 1.25 mg/dL 4:[address] [facility] GFR Estimate 53 (L) >60 11/08/2018 [place] mL/min/{1. 4:04 AM [facility] 73_m2} HOSPITAL Comment: Non GFR Calc Starting 10/05/2018, serum creatinine ba sed estimated GFR (eGFR) will be calculated using the Chronic Kidney Dise [facility] Epidemiology Collaboration (CKD-EPI) equation. GFR Estimate If 62 >60 mL/min/{1.73_m2} 11/08/2018 4: 04 AM [facility] Comment: GFR Calc Starting 10/05/2018, serum creatinine ba sed estimated GFR (eGFR) will be calculated using the Chronic Kidney Dise [place] Epidemiology Collaboration (CKD-EPI) equation. Calcium 8.2 (L) 8.5 - 10.1 11/08/2018 4:04 AM [facility] mg/dL [facility] Bilirubin Total 1.1 0.2 - 1.3 mg/dL 11/08/2018 4:06 AM [facility] Albumin 2.6 (L) 3.4 - 5.0 g/dL 11/08/2018 4:06 AM [facility] Protein Total 6.0 (L) 6.8 - 8.8 g/dL 11/08/2018 4:06 AM [facility] Alkaline Phosphatase 62 40 - 150 U/L 11/08/2018 4:06 AM [facility] ALT 18 0 - 70 U/L 11/08/2018 4:06 AM [facility] AST 19 0 - 45 U/L 11/08/2018 4:06 AM [facility] Specimen Anatomical Collection Method Collection Time Receive d Time (Source) Location / / Volume Laterality Blood specimen 11/08/2018 3:40 AM 019 3:46 (specimen) LEADITE MAN AM [facility] [email or web address]] Gurwinder Godoy MD LAB - BLOOD ORDERABLES Performing Organization Address City/State/ZIP Code Phon e Number [facility] [address] [address] [phone] [facility] [address] [address], [place] [phone] (ABNORMAL) CBC (AM Draw) (11/08/2018 3:40 AM LEADITE MAN) Analysis Performed At Patho logist Time Signature WBC 11.2 (H) 4.0 - 11.0 11/08/2018 [place] 10e9/L 3:[address] [facility] RBC Count 3.62 (L) 4.4 - 5.9 11/08/2018 [place] 10e12/L 3:[address] [facility] Hemoglobin 11.6 (L) 13.3 - 11/08/2018 [place] 17.7 g/dL 3:[address] [facility] Hematocrit 34.5 (L) 40.0 - 11/08/2018 [facility] 53.0 % 3:[address] [facility] MCV 95 78 - 100 11/08/2018 [facility] fl 3:[address] [facility] MCH 32.0 26.5 - 11/08/2018 [facility] 33.0 pg 3:[address] [facility] MCHC 33.6 31.5 - 11/08/2018 [facility] 36.5 g/dL 3:[address] [facility] RDW 13.9 10.0 - 11/08/2018 [facility] 15.0 % 3:[address] [facility] Platelet Count 82 (L) 150 - 450 11/08/2018 [facility] 10e9/L 3:[address] [facility] Specimen Anatomical Collection Method Collection Time Receive d Time (Source) Location / / Volume Laterality Blood specimen 11/08/2018 3:40 AM 019 3:46 (specimen) LEADITE MAN AM LEADITE MAN Gurwinder Godoy MD LAB - BLOOD ORDERABLES Performing Organization Address City/State/ZIP Code Phon e Number [facility] [address] [address] [facility] [address] [address], [facility] [phone] (ABNORMAL) CBC with platelets (11/07/2018 3:00 PM LEADITE MAN) Analysis Performed At Patho logist Time Signature WBC 11.1 (H) 4.0 - 11.0 11/07/2018 [facility] 10e9/L 3:[address] [facility] RBC Count 3.74 (L) 4.4 - 5.9 11/07/2018 [facility] 10e12/L 3:[address] [facility] Hemoglobin 11.9 (L) 13.3 - 11/07/2018 [facility] 17.7 g/dL 3:[address] [facility] Hematocrit 35.4 (L) 40.0 - 11/07/2018 [facility] 53.0 % 3:[address] [facility] MCV 95 78 - 100 11/07/2018 [facility] fl 3:[address] [facility] MCH 31.8 26.5 - 11/07/2018 [facility] 33.0 pg 3:[address] [facility] MCHC 33.6 31.5 - 11/07/2018 [facility] 36.5 g/dL 3:[address] [facility] RDW 14.1 10.0 - 11/07/2018 [facility] 15.0 % 3:[address] [facility] Platelet Count 87 (L) 150 - 450 11/07/2018 [facility] 10e9/L 3:[address] [facility] Specimen Anatomical Collection Method Collection Time Receive d Time (Source) Location / / Volume Laterality Blood specimen 11/07/2018 3:00 PM 019 3:05 (specimen) LEADITE MAN PM LEADITE MAN Bart Feliciano MD LAB - BLOOD ORDERABLES Performing Organization Address City/State/ZIP Code Phon e Number [facility] [address] [place] [address] [facility] [address] [place] [address], [place] [phone] Magnesium (11/07/2018 9:50 AM LEADITE MAN) P athologist Signature Magnesium 1.6 1.6 - 2.3 11/07/2018 [place] mg/dL 11:[address] [facility] Specimen Anatomical Collection Method Collection Time Receive d Time (Source) Location / / Volume Laterality 11/07/2018 9:50 AM 9 LEADITE MAN 10:04 AM LEADITE MAN Gurwinder Godoy MD LAB - BLOOD ORDERABLES Performing Organization Address City/State/ZIP Code Phon e Number [facility] [address] [place] [address] [facility] [address] [place] [address], [place] [phone] (ABNORMAL) CBC with platelets differential (11/07/2018 9:50 AM LEADITE MAN) Patholo gist Method Time Signature WBC 10.4 4.0 - 11/07/2018 [facility] 11.0 10:13 AM [facility] 10e9/L [facility] RBC Count 3.63 (L) 4.4 - 5.9 11/07/2018 [facility] 10e12/L 10:13 AM [facility] Hemoglobin 11.5 (L) 13.3 - 11/07/2018 [facility] 17.7 g/dL 10:13 AM [facility] Hematocrit 34.3 (L) 40.0 - 11/07/2018 [facility] 53.0 % 10:13 AM [facility] MCV 95 78 - 100 11/07/2018 [facility] fl 10:13 AM [facility] MCH 31.7 26.5 - 11/07/2018 [facility] 33.0 pg 10:13 AM [facility] MCHC 33.5 31.5 - 11/07/2018 [facility] 36.5 g/dL 10:13 AM [facility] RDW 14.0 10.0 - 11/07/2018 [facility] 15.0 % 10:13 AM [facility] Platelet Count 82 (L) 150 - 450 11/07/2018 [facility] 10e9/L 10:37 AM [facility] Diff Method Automated 11/07/2018 [facility] Method 10:37 AM [facility] % Neutrophils 78.8 % 11/07/2018 [facility] 10:37 AM [facility] % Lymphocytes 6.2 % 11/07/2018 [facility] 10:37 AM [facility] % Monocytes 14.7 % 11/07/2018 [facility] 10:37 [facility] % Eosinophils 0.2 % 11/07/2018 [facility] 10:37 AM [facility] % Basophils 0.0 % 11/07/2018 [facility] 10:37 AM [facility] % Immature 0.1 % 11/07/2018 [facility] Granulocytes 10:37 AM [facility] Nucleated RBCs 0 0 /100 11/07/2018 [facility] 10:37 AM [facility] Absolute 8.2 1.6 - 8.3 11/07/2018 [facility] Neutrophil 10e9/L 10:37 AM [facility] Absolute 0.6 (L) 0.8 - 5.3 11/07/2018 [facility] Lymphocytes 10e9/L 10:37 AM [facility] Absolute 1.5 (H) 0.0 - 1.3 11/07/2018 [facility] Monocytes 10e9/L 10:37 AM [facility] Absolute 0.0 0.0 - 0.7 11/07/2018 [place] Eosinophils 10e9/L 10:37 AM [facility] Absolute 0.0 0.0 - 0.2 11/07/2018 [facility] Basophils 10e9/L 10:37 AM [facility] Abs Immature 0.0 0 - 0.4 11/07/2018 [place] Granulocytes 10e9/L 10:37 AM [facility] Absolute 0.0 11/07/2018 [place] Nucleated RBC 10:37 AM [facility] Ovalocytes Slight 11/07/2018 [facility] 10:37 AM [facility] Platelet Automated 11/07/2018 [place] Estimate count 10:37 AM [facility] confirmed. [facility] Platelet morphology is normal. Specimen Anatomical Collection Method Collection Time Receive d Time (Source) Location / / Volume Laterality Blood specimen 11/07/2018 9:50 AM 019 (specimen) LEADITE MAN 10:04 AM LEADITE MAN Gurwinder Godoy MD LAB - BLOOD ORDERABLES Performing Organization Address City/State/ZIP Code Phon e Number [facility] [address] [address] [phone] [facility] [address] [address], [facility] [phone] (ABNORMAL) Basic metabolic panel (11/07/2018 9:50 AM [facility] [email or web address] Analysis Performed At Patho logist Time Signature Sodium 147 (H) 133 - 144 11/07/2018 [place] mmol/L 10:[address] [facility] Potassium 4.1 3.4 - 5.3 11/07/2018 [place] mmol/L 10:[address] [facility] Chloride 117 (H) 94 - 109 11/07/2018 [place] mmol/L 10:[address] [facility] Carbon Dioxide 20 20 - 32 11/07/2018 [place] mmol/L 10:[address] [facility] Anion Gap 10 3 - 14 11/07/2018 [place] mmol/L 10:[address] [facility] Glucose 108 (H) 70 - 99 11/07/2018 [place] mg/dL 10:[address] [facility] Urea Nitrogen 23 7 - 30 11/07/2018 [place] mg/dL 10:[address] [facility] Creatinine 1.47 (H) 0.66 - 11/07/2018 [place] 1.25 mg/dL 10:[address] [facility] GFR Estimate 46 (L) >60 11/07/2018 [place] mL/min/{1. 10:23 AM [facility] 73_m2} HOSPITAL Comment: Non GFR Calc Starting 10/05/2018, serum creatinine ba sed estimated GFR (eGFR) will be calculated using the Chronic Kidney Dise [facility] Epidemiology Collaboration (CKD-EPI) equation. GFR Estimate If 53 (L) >60 mL/min/{1.73_m2} 11/07/2018 10 :[address] [place] [address] [facility] Comment: GFR Calc Starting 10/05/2018, serum creatinine ba sed estimated GFR (eGFR) will be calculated using the Chronic Kidney Dise [facility] Epidemiology Collaboration (CKD-EPI) equation. Calcium 8.2 (L) 8.5 - 10.1 mg/dL 11/07/2018 10:23 AM [facility] Specimen Anatomical Collection Method Collection Time Receive d Time (Source) Location / / Volume Laterality Blood specimen 11/07/2018 9:50 AM 019 (specimen) LEADITE MAN 10:04 AM LEADITE MAN Gurwinder Godoy MD LAB - BLOOD ORDERABLES Performing Organization Address City/State/ZIP Code Phon e Number [facility] [address] [address] [facility] [address] [address], [facility] [phone] (ABNORMAL) Glucose by meter (11/07/2018 7:44 AM LEADITE MAN) P athologist Signature Glucose 112 (H) 70 - 99 11/07/2018 [facility] mg/dL 7:56 AM LEADITE MAN TEST, GLUCOSE Specimen Anatomical Collection Method Collection Time Receive d Time (Source) Location / / Volume Laterality 11/07/2018 7:44 AM 9 7:56 LEADITE MAN AM LEADITE MAN Juan Lewis MD LAB - BEAKER POCT Performing Organization Address City/State/ZIP Code Phon e Number [facility] POINT OF CARE TEST, GLUCOSE POINT OF CARE TEST, GLUCOSE (ABNORMAL) Glucose by meter (11/07/2018 3:49 AM LEADITE MAN) P athologist Signature Glucose 105 (H) 70 - 99 11/07/2018 [facility] mg/dL 4:01 AM LEADITE MAN TEST, GLUCOSE Specimen Anatomical Collection Method Collection Time Receive d Time (Source) Location / / Volume Laterality 11/07/2018 3:49 AM 9 4:01 LEADITE MAN AM LEADITE MAN Juan Lewis MD LAB - BEAKER POCT Performing Organization Address City/State/ZIP Code Phon e Number [facility] POINT OF CARE TEST, GLUCOSE POINT OF CARE TEST, GLUCOSE (ABNORMAL) Glucose by meter (11/07/2018 12:08 AM LEADITE MAN) P athologist Signature Glucose 119 (H) 70 - 99 11/07/2018 [facility] mg/dL 12:19 AM LEADITE MAN TEST, GLUCOSE Specimen Anatomical Collection Method Collection Time Receive d Time (Source) Location / / Volume Laterality 11/07/2018 12:08 11/07/2018 AM LEADITE MAN 12:19 AM LEADITE MAN Juan Lewis MD LAB - CAROLYN POCT Performing Organization Address City/State/ZIP Code Phon e Number [facility] POINT OF CARE TEST, GLUCOSE POINT OF CARE TEST, GLUCOSE (ABNORMAL) Glucose by meter (11/06/2018 7:53 PM LEADITE MAN) P athologist Signature Glucose 116 (H) 70 - 99 11/06/2018 [facility] mg/dL 8:04 PM LEADITE MAN TEST, GLUCOSE Specimen Anatomical Collection Method Collection Time Receive d Time (Source) Location / / Volume Laterality 11/06/2018 7:53 PM 9 8:04 LEADITE MAN PM LEADITE MAN Juan Lewis MD LAB - BEFOUZIA POCT Performing Organization Address City/State/ZIP Code Phon e Number [facility] POINT OF CARE TEST, GLUCOSE POINT OF CARE TEST, GLUCOSE (ABNORMAL) Glucose by meter (11/06/2018 11:02 AM LEADITE MAN) P athologist Signature Glucose 109 (H) 70 - 99 11/06/2018 [facility] mg/dL 11:13 AM LEADITE MAN TEST, GLUCOSE Specimen Anatomical Collection Method Collection Time Receive d Time (Source) Location / / Volume Laterality 11/06/2018 11:02 11/06/2018 AM LEADITE MAN 11:13 AM LEADITE MAN Juan YUAN - BEFOUZIA POCT Performing Organization Address City/State/ZIP Code Phon e Number [facility] POINT OF CARE TEST, GLUCOSE POINT OF CARE TEST, GLUCOSE (ABNORMAL) Glucose by meter (11/06/2018 7:38 AM LEADITE MAN) P athologist Signature Glucose 104 (H) 70 - 99 11/06/2018 [facility] mg/dL 7:50 AM LEADITE MAN TEST, GLUCOSE Specimen Anatomical Collection Method Collection Time Receive d Time (Source) Location / / Volume Laterality 11/06/2018 7:38 AM 9 7:50 LEADITE MAN AM LEADITE MAN Juan YUAN - BEFOUZIA POCT Performing Organization Address City/[facility]/ZIP Code Phon e Number [facility] POINT OF CARE TEST, GLUCOSE POINT OF CARE TEST, GLUCOSE Lactic acid whole blood (11/06/2018 4:15 AM LEADITE MAN) P athologist Signature Lactic Acid 1.4 0.7 - 2.0 11/06/2018 [place] mmol/L 4:[address] [facility] Specimen Anatomical Collection Method Collection Time Receive d Time (Source) Location / / Volume Laterality Blood specimen 11/06/2018 4:15 AM 019 4:25 (specimen) LEADITE MAN AM LEADITE MAN Bessy Mccray MD LAB - BLOOD ORDERABLES Performing Organization Address City/[facility]/ZIP Code Phon e Number [facility] [address] [place] [address] [facility] [address] [place] [address], [place] [phone] (ABNORMAL) Basic metabolic panel (11/06/2018 4:15 AM LEADITE MAN) Analysis Performed At Patho logist Time Signature Sodium 142 133 - 144 11/06/2018 [facility] mmol/L 4:[address] [facility] Potassium 4.4 3.4 - 5.3 11/06/2018 [place] mmol/L 4:[address] [facility] Chloride 113 (H) 94 - 109 11/06/2018 [place] mmol/L 4:[address] [facility] Carbon Dioxide 21 20 - 32 11/06/2018 [place] mmol/L 4:[address] [facility] Anion Gap 8 3 - 14 11/06/2018 [place] mmol/L 4:[address] [facility] Glucose 115 (H) 70 - 99 11/06/2018 [place] mg/dL 4:[address] [facility] Urea Nitrogen 27 7 - 30 11/06/2018 [place] mg/dL 4:[address] [facility] Creatinine 1.57 (H) 0.66 - 11/06/2018 [place] 1.25 mg/dL 4:[address] [facility] GFR Estimate 42 (L) >60 11/06/2018 [place] mL/min/{1. 4:54 AM [facility] 73_m2} HOSPITAL Comment: Non GFR Calc Starting 10/05/2018, serum creatinine ba sed estimated GFR (eGFR) will be calculated using the Chronic Kidney Dise [facility] Epidemiology Collaboration (CKD-EPI) equation. GFR Estimate If 49 (L) >60 mL/min/{1.73_m2} 11/06/2018 4: [address] [place] [address] [facility] Comment: GFR Calc Starting 10/05/2018, serum creatinine ba sed estimated GFR (eGFR) will be calculated using the Chronic Kidney Dise [facility] Epidemiology Collaboration (CKD-EPI) equation. Calcium 7.8 (L) 8.5 - 10.1 mg/dL 11/06/2018 4:54 AM [facility] Specimen Anatomical Collection Method Collection Time Receive d Time (Source) Location / / Volume Laterality Blood specimen 11/06/2018 4:15 AM 019 4:25 (specimen) LEADITE MAN AM LEADITE MAN Bessy Mccray MD LAB - BLOOD ORDERABLES Performing Organization Address City/State/ZIP Code Phon e Number [facility] [address] [address] [phone] [facility] [address] [address], [place] [phone] (ABNORMAL) CBC with platelets (11/06/2018 4:15 AM LEADITE MAN) Analysis Performed At Patho logist Time Signature WBC 12.9 (H) 4.0 - 11.0 11/06/2018 [facility] 10e9/L 4:[address] [facility] RBC Count 3.93 (L) 4.4 - 5.9 11/06/2018 [facility] 10e12/L 4:[address] [facility] Hemoglobin 12.5 (L) 13.3 - 11/06/2018 [facility] 17.7 g/dL 4:[address] [facility] Hematocrit 36.8 (L) 40.0 - 11/06/2018 [facility] 53.0 % 4:[address] [facility] MCV 94 78 - 100 11/06/2018 [facility] fl 4:[address] [facility] MCH 31.8 26.5 - 11/06/2018 [facility] 33.0 pg 4:[address] [facility] MCHC 34.0 31.5 - 11/06/2018 [facility] 36.5 g/dL 4:[address] [facility] RDW 13.2 10.0 - 11/06/2018 [facility] 15.0 % 4:[address] [facility] Platelet Count 153 150 - 450 11/06/2018 [facility] 10e9/L 4:[address] [facility] Specimen Anatomical Collection Method Collection Time Receive d Time (Source) Location / / Volume Laterality Blood specimen 11/06/2018 4:15 AM 019 4:25 (specimen) LEADITE MAN AM LEADITE MAN Bessy Mccray MD LAB - BLOOD ORDERABLES Performing Organization Address City/State/ZIP Code Phon e Number [facility] [address] [address] [facility] [address] [address], [place] [phone] (ABNORMAL) Glucose by meter (11/06/2018 1:12 AM LEADITE MAN) P athologist Signature Glucose 126 (H) 70 - 99 11/06/2018 [facility] mg/dL 1:24 AM LEADITE MAN TEST, GLUCOSE Specimen Anatomical Collection Method Collection Time Receive d Time (Source) Location / / Volume Laterality 11/06/2018 1:12 AM 9 1:24 LEADITE MAN AM LEADITE MAN Juan YUAN - BEAKER POCT Performing Organization Address City/State/ZIP Code Phon e Number [facility] POINT OF CARE TEST, GLUCOSE POINT OF CARE TEST, GLUCOSE Methicillin Resist/Sens S. aureus PCR (11/05/2018 11:41 PM LEADITE MAN) [facility] Method Time Signature Specimen Nares 11/05/2018 [place] Description 11:45 PM LEADITE MAN [facility] Methicillin Negative NEG^Negat 11/06/2018 [facility] Resist/Sens S. shin 2:36 AM LEADITE MAN IN MEDICAL aureus PCR [facility] Comment: MRSA Negative: SA Negative ??MRSA and St aphylococcus aureus target DNA not detected, presumed negative for MRSA and SA colonization or the number of bacteria present may be below the limit of detection for the assay. FDA approved assay performed using [employer]eXpert(R) real-time PCR. Specimen (Source) Anatomical Collection Method Collection Time Re ceived Time Location / / Volume Laterality Nasal structure 11/05/2018 11:41 11/06/19 19 (body structure) PM LEADITE MAN Bessy Mccray MD LAB - MICRO GENERAL ORDERABL ES Performing Organization Address City/[facility]/ZIP Code Phon e Number [facility] [address] [place] [address] [facility] [address] [place] [address], [facility] [phone] (ABNORMAL) Glucose by meter (11/05/2018 8:16 PM LEADITE MAN) P athologist Signature Glucose 128 (H) 70 - 99 11/05/2018 [facility] mg/dL 8:28 PM LEADITE MAN TEST, GLUCOSE Specimen Anatomical Collection Method Collection Time Receive d Time (Source) Location / / Volume Laterality 11/05/2018 8:16 PM 9 8:28 LEADITE MAN PM LEADITE MAN Juan YUAN - BEFOUZIA POCT Performing Organization Address City/State/ZIP Code Phon e Number [facility] POINT OF CARE TEST, GLUCOSE POINT OF CARE TEST, GLUCOSE (ABNORMAL) Glucose by meter (11/05/2018 4:39 PM LEADITE MAN) P athologist Signature Glucose 124 (H) 70 - 99 11/05/2018 [facility] mg/dL 4:50 PM LEADITE MAN TEST, GLUCOSE Specimen Anatomical Collection Method Collection Time Receive d Time (Source) Location / / Volume Laterality 11/05/2018 4:39 PM 9 4:50 LEADITE MAN PM LEADITE MAN Juan Lewis MD LAB - BEAKER POCT Performing Organization Address City/State/ZIP Code Phon e Number [facility] POINT OF CARE TEST, GLUCOSE POINT OF CARE TEST, GLUCOSE (ABNORMAL) CBC with platelets (11/05/2018 4:35 PM LEADITE MAN) Analysis Performed At Patho logist Time Signature WBC 7.3 4.0 - 11.0 11/05/2018 [facility] 10e9/L 5:[address] [facility] RBC Count 4.35 (L) 4.4 - 5.9 11/05/2018 [facility] 10e12/L 5:[address] [facility] Hemoglobin 13.7 13.3 - 11/05/2018 [facility] 17.7 g/dL 5:[address] [facility] Hematocrit 40.9 40.0 - 11/05/2018 [facility] 53.0 % 5:[address] [facility] MCV 94 78 - 100 11/05/2018 [facility] fl 5:[address] [facility] MCH 31.5 26.5 - 11/05/2018 [facility] 33.0 pg 5:[address] [facility] MCHC 33.5 31.5 - 11/05/2018 [facility] 36.5 g/dL 5:[address] [facility] RDW 13.1 10.0 - 11/05/2018 [facility] 15.0 % 5:[address] [facility] Platelet Count 108 (L) 150 - 450 11/05/2018 [facility] 10e9/L 5:[address] [facility] Specimen Anatomical Collection Method Collection Time Receive d Time (Source) Location / / Volume Laterality Blood specimen 11/05/2018 4:35 PM 019 5:17 (specimen) LEADITE MAN PM LEADITE MAN Bessy Mccray MD LAB - BLOOD ORDERABLES Performing Organization Address City/State/ZIP Code Phon e Number [facility] [address] [address] [facility] [address] [address], [place] [phone] INR (11/05/2018 4:35 PM LEADITE MAN) P athologist Signature INR 1.03 0.86 - 1.14 11/05/2018 [facility] 5:[address] [facility] Specimen Anatomical Collection Method Collection Time Receive d Time (Source) Location / / Volume Laterality Blood specimen 11/05/2018 4:35 PM 019 5:17 (specimen) LEADITE MAN PM LEADITE MAN Bessy Mccray MD LAB - BLOOD ORDERABLES Performing Organization Address City/State/ZIP Code Phon e Number [facility] [address] [place] [address] [facility] [address] [place] [address], [place] [phone] Lactic acid whole blood (11/05/2018 4:35 PM LEADITE MAN) P athologist Signature Lactic Acid 1.0 0.7 - 2.0 11/05/2018 [place] mmol/L 5:[address] [facility] Specimen Anatomical Collection Method Collection Time Receive d Time (Source) Location / / Volume Laterality Blood specimen 11/05/2018 4:35 PM 019 5:18 (specimen) LEADITE MAN PM LEADITE MAN Bessy Mccray MD LAB - BLOOD ORDERABLES Performing Organization Address City/State/ZIP Code Phon e Number [facility] [address] [place] [address] [facility] [address] [place] [address], [place] [phone] (ABNORMAL) Basic metabolic panel (11/05/2018 4:35 PM LEADITE MAN) Analysis Performed At Patho logist Time Signature Sodium 143 133 - 144 11/05/2018 [place] mmol/L 5:[address] [facility] Potassium 4.3 3.4 - 5.3 11/05/2018 [facility] mmol/L 5:[address] [facility] Chloride 113 (H) 94 - 109 11/05/2018 [place] mmol/L 5:[address] [facility] Carbon Dioxide 22 20 - 32 11/05/2018 [place] mmol/L 5:[address] [facility] Anion Gap 8 3 - 14 11/05/2018 [place] mmol/L 5:[address] [facility] Glucose 121 (H) 70 - 99 11/05/2018 [place] mg/dL 5:[address] [facility] Urea Nitrogen 24 7 - 30 11/05/2018 [place] mg/dL 5:[address] [facility] Creatinine 1.30 (H) 0.66 - 11/05/2018 [place] 1.25 mg/dL 5:[address] [facility] GFR Estimate 53 (L) >60 11/05/2018 [place] mL/min/{1. 5:43 PM [facility] 73_m2} [facility] Comment: Non GFR Calc Starting 10/05/2018, serum creatinine ba sed estimated GFR (eGFR) will be calculated using the Chronic Kidney Dise [facility] Epidemiology Collaboration (CKD-EPI) equation. GFR Estimate If 61 >60 mL/min/{1.73_m2} 11/05/2018 5: 43 PM [facility] Comment: GFR Calc Starting 10/05/2018, serum creatinine ba sed estimated GFR (eGFR) will be calculated using the Chronic Kidney Dise [facility] Epidemiology Collaboration (CKD-EPI) equation. Calcium 8.6 8.5 - 10.1 mg/dL 11/05/2018 5:43 PM [facility] Specimen Anatomical Collection Method Collection Time Receive d Time (Source) Location / / Volume Laterality Blood specimen 11/05/2018 4:35 PM 019 5:17 (specimen) [facility] PM [facility] Bessy Mccray MD LAB - BLOOD ORDERABLES Performing Organization Address City/State/ZIP Code Phon e Number [facility] [address] [address] [phone] [facility] [address] [address], [place] [phone] IR Thoracic Endovascular Stent Graft (11/05/2018 12:09 PM LEADITE MAN) Anatomical Region Laterality Modality Chest Radio Fluoroscopy Specimen (Source) Anatomical Location Collection Method / Collectio n Time Received Time / Laterality Volume Impressions 11/06/2018 3:33 PM LEADITE MAN IMPRESSION: Successful deployment in 2 components for [...] KANNAN MORSE MD Narrative 11/06/2018 3:33 PM LEADITE MAN INTERVENTIONAL RADIOLOGY THORACIC ENDOVASCULAR STENT GRAFT ??11/05/2018 [...] tion. Over a series of maneuvers, 6 Ivorian vascular sheath was placed. From left groin [...] tion. Over a series of maneuvers, 6 Ivorian vascular sheath was placed. From left groin [...] Drain Placement w Fluoro (11/05/2018 9:10 AM LEADITE MAN) Anatomical Region Laterality Modality Spine Radio Fluoroscopy Specimen (Source) Anatomical Location Collection Method / Collectio n Time Received Time / Laterality Volume Narrative 11/05/2018 9:19 AM LEADITE MAN [facility] RADIOLOGY INTERVENTIONAL NEURORADIOLOGY PROCEDURAL NOTE FLUOROSCOPICALLY GUIDED [...] codes included for physician referen ce only: [id number] MISSAEL GARCIA MD Procedure Note Missael Garcia MD - 11/05/2018For matting of this note might be different from the original. [facility] RADIOLOGY INTERVENTIONAL NEURORADIOLOGY PROCEDURAL NOTE FLUOROSCOPICALLY GUIDED [...] codes included for physician referen ce only: [id number] MISSAEL GARCIA MD Butch Brown MD IMG IR ORDERABLES EKG 12-lead, tracing only (11/05/2018 6:58 AM LEADITE MAN) [facility] gist Method Time Signature Interpretation ECG Click View RADIOLOGY Image link RESULTS to view waveform and result Specimen (Source) Anatomical Collection Method Collection Time Re ceived Time Location / / Volume Laterality 11/05/2018 6:58 AM LEADITE MAN Juan Lewis MD ECG ORDERABLES Performing Organization Address City/State/ZIP Code Phon e Number RADIOLOGY RESULTS Potassium (11/05/2018 6:55 AM LEADITE MAN) athologist Signature Potassium 4.3 3.4 - 5.3 11/05/2018 [facility] mmol/L 7:15 AM LEADITE MAN [facility] Specimen Anatomical Collection Method Collection Time Receive d Time (Source) Location / / Volume Laterality Blood specimen 11/05/2018 6:55 AM 019 6:56 (specimen) LEADITE MAN AM LEADITE MAN Zakia Tobin MD LAB - BLOOD ORDERABLES Performing Organization Address City/State/ZIP Code Phon e Number [facility] [address] [place] [address] [phone] [facility] [address] [place] [address], [place] [phone] Lipid panel (11/05/2018 6:55 AM LEADITE MAN) Analysis Performed At Patho logist Time Signature Cholesterol 128 <200 mg/dL 11/05/2018 [facility] 7:[address] [facility] Triglycerides 125 <150 mg/dL 11/05/2018 [facility] 7:[address] [facility] HDL Cholesterol 59 >39 mg/dL 11/05/2018 [facility] 7:[address] [facility] LDL Cholesterol 44 <100 mg/dL 11/05/2018 [facility] Calculated 7:[address] [facility] Comment: Desirable: <100 mg/dl Non HDL Cholesterol 69 <130 mg/dL 11/05/2018 7:23 AM [facility] Specimen Anatomical Collection Method Collection Time Receive d Time (Source) Location / / Volume Laterality Blood specimen 11/05/2018 6:55 AM 019 6:56 (specimen) LEADITE MAN AM LEADITE MAN Juan Lewis MD LAB - BLOOD ORDERABLES Performing Organization Address City/State/ZIP Code Phon e Number [facility] [address] [place] [address] [facility] [address] [place] [address], [place] [phone] Hemoglobin A1c (11/05/2018 6:55 AM LEADITE MAN) P athologist Signature Hemoglobin A1C 5.2 0 - 5.6 % 11/05/2018 [facility] 7:[address] [facility] Comment: Normal <5.7% Prediabetes 5.7-6.4% ??Diab etes 6.5% or higher - adopted from ADA consensus guidelines. Specimen Anatomical Collection Method Collection Time Receive d Time (Source) Location / / Volume Laterality Blood specimen 11/05/2018 6:55 AM 019 6:56 (specimen) LEADITE MAN AM LEADITE MAN Juan Lewis MD LAB - BLOOD ORDERABLES Performing Organization Address City/State/ZIP Code Phon e Number [facility] [address] [address] [facility] [address] [place] [address], [place] [phone] (ABNORMAL) Creatinine (11/05/2018 6:55 AM LEADITE MAN) athologist Signature Creatinine 1.52 (H) 0.66 - 11/05/2018 [facility] 1.25 mg/dL 7:[address] [facility] GFR Estimate 44 (L) >60 11/05/2018 [place] mL/min/{1. 7:20 AM [facility] 73_m2} [facility] Comment: Non GFR Calc Starting 10/05/2018, serum creatinine ba sed estimated GFR (eGFR) will be calculated using the Chronic Kidney Dise [facility] Epidemiology Collaboration (CKD-EPI) equation. GFR Estimate If 51 (L) >60 mL/min/{1.73_m2} 11/05/2018 7: 20 AM [facility] Comment: GFR Calc Starting 10/05/2018, serum creatinine ba sed estimated GFR (eGFR) will be calculated using the Chronic Kidney Dise [facility] Epidemiology Collaboration (CKD-EPI) equation. Specimen Anatomical Collection Method Collection Time Receive d Time (Source) Location / / Volume Laterality Blood specimen 11/05/2018 6:55 AM 019 6:56 (specimen) LEADITE MAN AM LEADITE MAN Juan Lewis MD LAB - BLOOD ORDERABLES Performing Organization Address City/State/ZIP Code Phon e Number [facility] [address] [address] [facility] [address] [place] [address], [place] [phone] XR Chest Port 1 View (11/05/2018 6:40 AM LEADITE MAN) Anatomical Region Laterality Modality Chest Digital Radiography Specimen (Source) Anatomical Location Collection Method / Collectio n Time Received Time / Laterality Volume Impressions 11/05/2018 6:58 AM LEADITE MAN IMPRESSION: No acute abnormality. TORI SANTIZO MD Narrative 11/05/2018 6:58 AM LEADITE MAN XR CHEST PORTABLE 1 VIEW ?? 11/05/2018 [...] CARDIAC - HIM SCAN (09/24/2018 12:00 AM LEADITE MAN) Specimen (Source) Anatomical Location Collection Method / [...] acetaminophen (TYLENOL) tablet Given 11/08/2018 11:04 PM LEADITE MAN 975 mg 975 mg 975 mg, Oral, EVERY 6 HOURS PRN, mild pain, fever, Starting on Thu11/05/18 at 1827, Maximum acetaminophen dose from all sources = 75 mg/kg/day not to exceed 4 grams/day. Given 11/08/2018 12:37 PM LEADITE MAN 975 mg Given 11/07/2018 11:03 AM LEADITE MAN 975 mg alum & mag hydroxide-simethicone (MYLANTA Given 11/08/2018 2:48 AM LEADITE MAN 30 mLs ES/MAALOX ES) suspension 30 mL 30 mL, Oral, EVERY 4 HOURS PRN, indigestion, Starting on Thu11/05/18 at 1510, Shake well. apixaban ANTICOAGULANT (ELIQUIS) tablet 2.5 Given 10/20 12:04 PM LEADITE MAN 2.5 mg mg 2.5 mg, Oral, 2 TIMES DAILY, First dose on Thu11/09/18 at 1115 atorvastatin (LIPITOR) tablet 40 mg Given 11/08/2018 8:20 PM LEADITE MAN 40 mg 40 mg, Oral, EVERY EVENING, First dose on Thu11/05/18 at 2000 Given 11/07/2018 7:49 PM LEADITE MAN 40 mg Given 11/06/2018 9:16 PM LEADITE MAN 40 mg BUPivacaine (MARCAINE) Given 11/05/2018 12:07 PM 20 mLs Operative Site/Surgical injection 0.5% PF LEADITE MAN Site PRN, Starting on Thu11/05/18 at 1207, Intra-procedure calcium carbonate (TUMS) chewable tablet Given 11/07/2018 10 :34 PM LEADITE MAN 1,000 mg 1,000 mg 1,000 mg, Oral, EVERY 2 HOURS PRN, heartburn, Starting on Thu11/06/18 at 0408, Do not give if calcium level greater than 10 mg/dL. Given 11/07/2018 12:05 AM LEADITE MAN 1,000 mg Given 11/06/2018 4:50 AM LEADITE MAN 1,000 mg cyclobenzaprine (FLEXERIL) tablet 5-10 m g Given 11/08/2018 3:58 AM LEADITE MAN 10 mg 5-10 mg, Oral, 3 TIMES DAILY PRN, muscle spasms, Starting on Thu11/07/18 at 1153 Given 11/07/2018 2:26 PM LEADITE MAN 5 mg diphenhydrAMINE (BENADRYL) injection 12. 5 mg 12.5 mg, Intravenous, EVERY 6 HOURS PRN, itching, Only give if patient unable to take PO., Starting on Thu11/05/18 at 151 0, Caution to be used when administering multiple EGG TRAYER depressing meds within a sh ort time frame. For ordered IV doses 1-50 mg, give IV Push undiluted. Give each 25 mg over a minimum of 1 minute. Extend in non-emergency diphenhydrAMINE (BENADRYL) solution 12.5 mg 12.5 mg, Oral, EVERY 6 HOURS PRN, itchin g, Starting on Thu11/05/18 at 1510, Caution to be used when administering multiple EGG TRAYER depressing meds within a short time frame. heparin 10,000 units in Given 11/05/2018 11:06 AM 200 mLs Operative Site/Surgical 1000 mL 0.9% sodium LEADITE MAN Site chloride PRN, Starting on Thu11/05/18 at 1106, Intra-procedure hydrALAZINE (APRESOLINE) injection 10-20 mg Given 11/08/2018 7:03 PM LEADITE MAN 10 mg 10-20 mg, Intravenous, EVERY 1 [...] over 1 minute. Given 11/08/2018 11:51 AM LEADITE MAN 20 mg Given 11/08/2018 3:36 AM LEADITE MAN 20 mg iopamidol (ISOVUE-300) IV Given 11/05/2018 12:42 PM 75 mLs Operative Site/Surgical solution 61% LEADITE MAN Site PRN, Starting on Thu11/05/18 at 1242, Intra-procedure labetalol (NORMODYNE/TRANDATE) injection 10-20 Given 0 11/08/2018 3:03 AM LEADITE MAN 10 mg mg 10-20 mg, Intravenous, EVERY [...] over 2 minutes. Given 11/08/2018 2:33 AM LEADITE MAN 20 mg Given 11/07/2018 10:35 PM LEADITE MAN 10 mg magnesium sulfate 4 g in 100 mL sterile water (premade) 4 g, Intravenous, Administer over 120 Minutes, EVERY 4 HOURS PRN, magnesium supplementation, Starting on 11/07/18 at 1152, For serum Mg++ less than 1.6 mg/dL Give 4 g and recheck magnesium level 2 hours aft er dose, and next AM. metoprolol tartrate (LOPRESSOR) tablet 5 0 mg Given 11/09/2018 8:28 AM LEADITE MAN 50 mg 50 mg, Oral, 2 TIMES DAILY, First dose on Thu11/08/18 at 2100, Hold for SBP < 90, HR < 50 Given 11/08/2018 8:20 PM LEADITE MAN 50 mg omeprazole (priLOSEC) CR capsule 20 mg Given 11/09/2018 6:33 AM LEADITE MAN 20 mg 20 mg, Oral, EVERY MORNING BEFORE BREAKFAST, First dose on Thu11/07/18 at 2345 Given 11/08/2018 8:22 AM LEADITE MAN 20 mg Given 11/07/2018 11:48 PM LEADITE MAN 20 mg ondansetron (ZOFRAN) injection 4 mg Given 11/07/2018 11:48 PM LEADITE MAN 4 mg 4 mg, Intravenous, EVERY 6 [...] half-tab 2.5-5 mg Given 11/08/2018 12:37 PM LEADITE MAN 5 mg 2.5-5 mg, Oral, EVERY 4 HOURS PRN, moderate to severe pain, Starting on Thu11/05/18 at 1724 Given 11/08/2018 6:19 AM LEADITE MAN 5 mg Given 11/07/2018 7:49 PM LEADITE MAN 5 mg sennosides (SENOKOT) tablet 8.6 mg Given 11/08/2018 3:36 AM LEADITE MAN 8.6 mg 8.6 mg, Oral, 2 TIMES DAILY PRN, constipation, Starting on Thu11/08/18 at 0250 sodium chloride (PF) 0.9% PF flush 3 mL Given 11/07/2018 4:12 PM LEADITE MAN 3 mLs 3 mL, Intracatheter, EVERY 8 HOURS, First dose on Thu11/05/18 at 1515, And Q1H PRN, to lock peripheral IV dormant line. Given 11/07/2018 11:34 AM LEADITE MAN 3 mLs Given 11/07/2018 12:06 AM LEADITE MAN 10 mLs terazosin (HYTRIN) capsule 5 mg Given 11/08/2018 9:21 PM LEADITE MAN 5 mg 5 mg, Oral, AT BEDTIME, First dose on Thu11/05/18 at 2200 documented in this encounter Active and Recently Administered Medications Times are shown in LEADITE MAN. Scheduled Medication Order 11/07/2018 11/08/2018 11/09/2018 apixaban [...] mg 2221 (Not Given - Prov ider: Krisyt Castañeda RN - Reason: NPO) 2121 (Given [...] Caution to be used when administering multiple EGG TRAYER depressing meds within a short time frame. For ordered IV doses 1-50 m g, give IV Push undiluted. Give each 25mg over a minimum of 1 minute. Extend in non-emergency diphenhydrAMINE (BENADRYL) solution 12.5 mg(Linked Group 1) 12.5 mg, Oral, EVERY 6 HOURS PRN, itchin g, Starting Thu11/05/18 at 1510, Caution to be used when administering multiple EGG TRAYER depressing meds within a short time frame. [...]
Caution to be used when administering multiple EGG TRAYER depressing meds within a short time frame.
Or diphenhydrAMINE (BENADRYL) injection 12.5 mgJump to med 12.5 mg, Intravenous, EVERY 6 HOURS PRN, itching, Only give if patient unable to take PO., Starting 11/05/18 at 1510
Caution to be used when administering multiple EGG TRAYER depressing meds within a short time frame. [...] documented as of this encounter Care Teams Airplane Tube Builder Relationship Specialty Start Date End Date Clinic, Kehinde Santos PCP - General 05/12/17 [address] [phone] documented as of this encounter
--- OUTSIDE RECORDS SUMMARY | 2022-05-30 08:44 | XMS_ITS | Encounter Summary ---
:1940 Author Organization [place] Address [facility] [place] [address] Care Team Providers Name Role Phone Clinic, [facility] Primary Care Provider [phone] Encounter Details Date Type Department Care Team Description 11/05/2018 Anesthesia Event [facility] Zakia Santoyo, Interventional Radio logy [address] [id number] ANESTHESIOLOGY [phone] [address] [address] Anesthesia Record Procedure Summary Procedure Name Responsible [...] on filedocumented in this encounter Care Teams Agricultural Economics Teacher Relationship Specialty Start Date End Date Kehinde Portillo PCP - General 05/12/[address] [place] [id number] documented as of this encounter
--- OUTSIDE RECORDS SUMMARY | 2022-05-30 08:45 | XMS_ITS | Encounter Summary ---
:1940 Author Organization [place] Address [facility] [place] [place] [address] Care Team Providers Name Role Phone Clinic, [facility] Primary Care Provider [phone] Encounter Details Date Type Department Care Team Description 07/30/2018 Telephone [facility] Vascular Sophie piper, Juan Nava MD Clinic [place] [address] [place] [address] [place] [address] [phone] Social History Tobacco Use Types Packs/Day Years [...] this encounter Miscellaneous Notes Telephone Encounter - Aruan Simmons Ann - 09/14/2018 2:12 PM CST Type of surgery: *OR 51* DR. ALANIZ TO ASSIST WITH ENDOVASCULAR REPAIR OF AAA WITH [employer] GRAFT Location of surgery: [facility] Date and time of surgery: 09/28/18 @ 12:30pm Surgeon: DR. VÁSQUEZ AND DR. ALANIZ Pre-Op Appt Date: PT TO SCHEDULE AT [facility] Post-Op Appt Date: PT TO SCHEDULE Packet sent out: YES ON 09/02/18 Pre-cert/Authorization completed: Yes Date: 09/14/18 GE TECHNICIAN Telephone Encounter - Aruna Simmons - 07/30/2018 4:00 PM CDT Daughter Raquel called to schedule her dad's surgery in September. I took note of the dates they would like. I am waiting on the schedule for the Interventional Radiologist that Dr. Vásquez requested. Raquel understands I will follow up with her next week. .Aruna Simmons, Rubber Down documented in this encounter Plan of Treatment Not on filedocumented as of this encounter Visit Diagnoses Not on filedocumented in this encounter Care Teams Bar Captain Relationship Specialty Start Date End Date Clinic, [facility] PCP - General 05/12/[address] [place] [address] documented as of this encounter
--- OUTSIDE RECORDS SUMMARY | 2022-05-30 08:45 | XMS_ITS | Encounter Summary ---
:1940 Author Organization [place] Address [facility] [place] [address] Care Team Providers Name Role Phone Clinic, [facility] Primary Care Provider [phone] Reason for Visit Auth/Cert Specialty Diagnoses / Procedures Referred By Contact Refer red To Contact Surgery Diagnoses ABDOMINAL AORTIC ANEURYSM Sh Periop Services Procedures ENDOVASCULAR REPAIR ANEURYSM ABDOMINAL AORTA [address] [place] [address] Phone: Referral ID Status Reason Start Date Expiration Date Visits Requ ested Visits Authorized [id number] 1 1 Encounter Details Date Type Department Care Team Description [facility]/28[facility] [address] [place] [id number] AAA (abdominal 09/29/2018 Encounter Carrie Abdi MD [address] [place] [id number] aortic aneurysm) Intermediate Care (H) [address] [...] Comments Blood Pressure 135/74 09/29/2018 11:18 AM REGIONAL ENGINEER Pulse 48 09/29/2018 11:18 AM REGIONAL ENGINEER Temperature 36.5 ??C (97.7 ??F) 09/29/2018 11:18 AM REGIONAL ENGINEER Respiratory Rate 16 09/29/2018 11:18 AM REGIONAL ENGINEER Oxygen Saturation 95% 09/29/2018 11:18 AM REGIONAL ENGINEER Inhaled Oxygen Concentration - - Weight 85.2 kg (187 lb 12.8 oz) 09/29/2018 5:00 AM REGIONAL ENGINEER Height 170.2 cm (5' 7) 09/28/2018 11:21 AM REGIONAL ENGINEER Body Mass Index 29.41 09/28/2018 11:21 AM REGIONAL ENGINEER documented in this encounter Discharge Summaries Juan [...] MD MT: RIO Name: SPEEDY MCDUFFIE Account: [id number] : 1940 Admit Date: 09/28/2018 Discharge Date: 09/29/2018 Document: [id number] cc: Primary ONAL ENGINEER documented in this encounter Medications at Time [...] Levi MD - 09/29/2018 9:32 AM CST [facility] Vascular Medicine Progress Note Date of Service [...] aorta. Exchange was made for a 6 Belgian vascular sheath. 18-gauge singlewall needle was then advanced into the left common femoral artery through which a 0.035 inch Bentson wire was advanced in the abdominal aorta. Exchange is made for a 6 Belgian vascular sheath. Via the left groin access, a 5 Belgian pigtail catheter was advanced over the Bentson wire into the abdominal aorta. Via the right groin, a 5 Belgian pigtail catheter was advanced over the Bentson [...] concerns during business hours M-F, call the [facility] at [phone] to have the rounding/pet adoption counselor Vascular Medicine (NOT VASCULAR SURGERY) MD paged. - After business hours M-F,??for medical concerns on this patient, please page hospitalist staff. - For vascular surgical questions, please page the appropriate surgeon (primary vascular surgeon or pet adoption counselor vascular surgeon) based upon the time of day. Lambert Fontanez PA-C Zoltan Londono MD - 09/29/2018 8:19 AM CST [facility] Vascular Surgery Progress Note Assessment & Plan [...] concerns during business hours M-F, call the [facility] Vascular [facility] at [phone] to have the rounding/pet adoption counselor Vascular Medicine (NOT VASCULAR SURGERY) MD paged. - After business hours M-F,??for medical concerns on this patient, please page hospitalist staff. - For vascular surgical questions, please page the appropriate surgeon (primary vascular surgeon or pet adoption counselor vascular surgeon) based upon the time of day. Brandie Barrera PA-C Michelle Jones - 09/28/2018 10:42 AM CST Admission medication history interview status for the 09/28/2018 admission is complete. See [facility] admission navigator for prior to admission medications Medication history source reliability:Good Medication history interview source(s):Patient Medication history resources (including written lists, pill bottles, clinic record):Patient mailed in his medication list prior to surgery Primary pharmacy.[facility] Additional medication history information not noted on [facility] med list :None Time spent in this [...] at HS Yes Unknown, Entered By History ONAL ENGINEER documented in this encounter Procedure Notes Jacqui [...] for procedural details. Provider name: Jacqui Odom Saw Repairer(s):None ONAL ENGINEER documented in this encounter Consult Notes Carrie [...] in his throat. PENICILLINS cause a rash. [facility] has an unspecified allergy associated with its use. PREVIOUS MEDICAL HISTORY: 1. Hyperlipidemia. 2. Hypertension. 3. Contact dermatitis. 4. AAA. 5. Colonic polyps. 6. Lumbar spinal stenosis. 7. Impaired fasting glucose. 8. Stage III chronic kidney disease. 9. Paroxysmal atrial fibrillation. PREVIOUS SURGICAL HISTORY: 1. Cervical fusion C7, December 1978. 2. Cervical fusion, Dr. Donahue at [facility] 02/18/2006. 3. Hardware removal and matrixectomy, right great toe, 09/30/2012. 4. Lumbar fusion 10/1996, L5-S1. 5. Lumbar fusion 1999, L4. 6. 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 7. Laparoscopic appendectomy, 01/2009. SOCIAL HISTORY: The patient is . He has 2 children. 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 He quit smoking [id number] after a 1/4 pack per day use [...] MD MT: JACKSON Name: SPEEDY MCDUFFIE Account: [id number] : 1940 Consult Date: 09/28/2018 Document: [id number] ONAL ENGINEER documented in this encounter Miscellaneous Notes Op [...] MD MT: JACKSON Name: SPEEDY MCDUFFIE Account: [id number] : 1940 Procedure Date: 09/28/2018 Document: [id number] ONAL ENGINEER Plan of Care - Griselda Dinero RN [...] will continue to follow up with this. ONAL ENGINEER Provider Notification - Levi Hollingsworth MD - 09/29/2018 12:46 AM REGIONAL ENGINEER Brief update: Paged re: request for home melatonin 10 mg melatonin HS PRN added. Levi Hollingsworth MD 12:47 AM ONAL ENGINEER Plan of Care - Ira South RN - 09/28/2018 11:11 PM CST A&O, VSS, Lung sounds clear, Bowel sounds active,adeqaute urine output, incision right & letgroin CDI Ambulates assist 1, Regular diet, tolerating liquids with poor appetite. Pain controlled by scheduled tylenol and PRN oxycodone. ONAL ENGINEER Plan of Care - Vandana Smith RN - 09/28/2018 7:22 PM CST Pt is came from PACU.Groin site dressing clean dry and intact.Not void yet.Ice pack given.IVF running .will monitor. ONAL ENGINEER documented in this encounter Plan of Treatment Not on filedocumented as of this encounter Procedures Procedure Name Priority Date/Time Associated Comments Diagnosis CTA CHEST WITH Routine 09/29/2018 11:38 Results f or this CONTRAST AM REGIONAL ENGINEER procedure are i n the results section. BASIC METABOLIC PANEL Timed 09/29/2018 10:06 AAA (abdominal Results for this AM REGIONAL ENGINEER aortic aneurysm) procedure a re in (H) the results section. GLUCOSE BY METER Routine 09/29/2018 6:00 AM AAA (abdominal Res ults for this REGIONAL ENGINEER aortic aneurysm) procedure a re in (H) the results section. ANGIOGRAM Routine 09/28/2018 2:39 PM REGIONAL ENGINEER IR ABDOMINAL Routine 09/28/2018 2:17 PM AAA (abdominal Results for this ENDOVASCULAR STENT REGIONAL ENGINEER aortic aneurysm) proce dure are in GRAFT (H) the results section. EKG 12-LEAD, TRACING STAT 09/28/2018 11:42 Res ults for this ONLY AM REGIONAL ENGINEER procedure are i n the results section. XR CHEST 1 VIEW STAT 09/28/2018 11:21 Results for this AM REGIONAL ENGINEER procedure are i n the results section. BLOOD COMPONENT Routine 09/28/2018 11:11 AAA (abdominal Result s for this AM REGIONAL ENGINEER aortic aneurysm) procedure a re in (H) the results section. BLOOD COMPONENT Routine 09/28/2018 11:11 AAA (abdominal Result s for this AM REGIONAL ENGINEER aortic aneurysm) procedure a re in (H) the results section. POTASSIUM STAT 09/28/2018 11:11 AAA (abdominal Results f or this AM REGIONAL ENGINEER aortic aneurysm) procedure a re in (H) the results section. LIPID PROFILE STAT 09/28/2018 11:11 AAA (abdominal Results for this AM REGIONAL ENGINEER aortic aneurysm) procedure a re in (H) the results section. HEMOGLOBIN A1C STAT 09/28/2018 11:11 AAA (abdominal Results for this AM REGIONAL ENGINEER aortic aneurysm) procedure a re in (H) the results section. CREATININE STAT 09/28/2018 11:11 AAA (abdominal Results f or this AM REGIONAL ENGINEER aortic aneurysm) procedure a re in (H) the results section. ABO/RH TYPE AND STAT 09/28/2018 11:11 AAA (abdominal Result s for this SCREEN AM REGIONAL ENGINEER aortic aneurysm) procedure a re in (H) the results section. LAB RESULT - HIM SCAN 09/24/2018 12:00 AM REGIONAL ENGINEER EKG CARDIAC - HIM 09/24/2018 12:00 SCAN AM REGIONAL ENGINEER documented in this encounter Results CTA Chest with Contrast (09/29/2018 11:38 AM REGIONAL ENGINEER) Anatomical Region Laterality Modality Chest, SUBRAD IR PROCEDURE, UMP CT CTA, RAD CT Computed Tomography Specimen (Source) Anatomical Location Collection Method / Collectio n Time Received Time / Laterality Volume Impressions 09/29/2018 4:30 PM REGIONAL ENGINEER IMPRESSION: Tortuous descending thoracic aorta with bilobed aneurysmal dilatation measuring up to 50 mm in diameter in the distal descending aorta. JACQUI ODOM MD Narrative 09/29/2018 4:30 PM REGIONAL ENGINEER PROCEDURE: CTA of the chest DATE OF [...] ORDERABLES Basic metabolic panel (09/29/2018 10:06 AM REGIONAL ENGINEER) [facility] Time Signature Sodium 141 133 - 144 09/29/2018 [facility] mmol/L 10:31 AM [facility] Potassium 4.5 3.4 - 5.3 09/29/2018 [facility] mmol/L 10:31 AM [facility] Chloride 109 94 - 109 09/29/2018 [facility] mmol/L 10:31 AM [facility] Carbon Dioxide 25 20 - 32 09/29/2018 [place] mmol/L 10:31 AM [facility] Anion Gap 7 3 - 14 09/29/2018 [place] mmol/L 10:31 AM [facility] Glucose 97 70 - 99 09/29/2018 [place] mg/dL 10:31 AM [facility] Urea Nitrogen 18 7 - 30 09/29/2018 [place] mg/dL 10:31 AM [facility] Creatinine 1.25 0.66 - 09/29/2018 [place] 1.25 10:31 AM [facility] mg/[facility] GFR Estimate Not Calculated >60 09/29/2018 [place] mL/min/1. 10:[address] GFR Estimate Not Calculated >60 09/29/2018 [place] If Black mL/min/1. 10:[address] Calcium 8.8 8.5 - 09/29/2018 [place] 10.1 10:31 AM [facility] mg/dL [facility] Specimen Anatomical Collection Method Collection Time Receive d Time (Source) Location / / Volume Laterality Blood specimen 09/29/2018 10:06 8 (specimen) AM REGIONAL ENGINEER 10:07 AM REGIONAL ENGINEER Pam Conde PA-C LAB - BLOOD ORDERABLES Performing Organization Address City/State/ZIP Code Phon e Number M [facility] [address] [place] [address] [phone] [facility] [address] [place] [address], [facility] [phone] (ABNORMAL) Glucose by meter (09/29/2018 6:00 AM REGIONAL ENGINEER) P athologist Signature Glucose 109 (H) 70 - 99 09/29/2018 [facility] mg/dL 6:18 AM REGIONAL ENGINEER TEST, GLUCOSE Specimen Anatomical Collection Method Collection Time Receive d Time (Source) Location / / Volume Laterality 09/29/2018 6:00 AM 8 6:18 REGIONAL ENGINEER AM REGIONAL ENGINEER Juan Vásquez MD LAB - BEAKER POCT Performing Organization Address City/State/ZIP Code Phon e Number [facility] POINT OF CARE TEST, GLUCOSE POINT OF CARE TEST, GLUCOSE IR Abdominal Endovascular Stent Graft (09/28/2018 2:17 PM REGIONAL ENGINEER) Anatomical Region Laterality Modality Abdomen/Pelvis Radio Fluoroscopy Specimen (Source) Anatomical Location Collection Method / Collectio n Time Received Time / Laterality Volume Impressions 09/29/2018 8:52 AM REGIONAL ENGINEER Impression: 1. Thoracic and abdominal angiography de monstrating previously unknown thoracic aortic aneurysm as well as the known abdominal aortic aneurysm 2. Endovascular aneurysm repair was abor clover to allow for further investigation of the thoracic aortic ane urysm and future surgical planning. JACQUI ODOM MD Narrative 09/29/2018 8:52 AM REGIONAL ENGINEER PROCEDURE(S): 1. Thoracic and abdominal aortic angiogr [...] aneurysm repair. A timeout was performed per [facility] protocol policy to confirm the correct [...] aorta. Exchange was made for a 6 Belgian vascula r sheath. 18-gauge singlewall needle was then advanced into the left c ommon femoral artery through which a 0.035 inch Bentson wire was adva nced in the abdominal aorta. Exchange is made for a 6 Belgian vascular sheath. Via the left groin access, a 5 Belgian pigtail catheter was advanced over the Bentson wire into the abdominal aorta. Via the right groin, a 5 Belgian pigtail catheter was advanced over the Bentson [...] aneurysm repair. A timeout was performed per [facility] protocol policy to confirm the correct patient, site and pr ocedure to be performed. Please note that due to the complex natu re of the procedure, a multi-disciplinary approach was used [facility] involved Mili Vásquez and Lei functioning as co-surgeons for t his procedure. Bilateral common femoral arteries were s urgically exposed, see separate operative report for details. A n 18-gauge singlewall needle was then inserted into the right common femoral artery through which a 0.035 inch Bentson wire was advanced int o the abdominal aorta. Exchange was made for a 6 Belgian vascula r sheath. 18-gauge singlewall needle was then advanced into the left c ommon femoral artery through which a 0.035 inch Bentson wire was adva nced in the abdominal aorta. Exchange is made for a 6 Belgian vascular sheath. Via the left groin access, a 5 Belgian pigtail catheter was advanced over the Bentson wire into the abdominal aorta. Via the right groin, a 5 Belgian pigtail catheter was advanced over the Bentson [...] EKG 12-lead, tracing only (09/28/2018 11:42 AM REGIONAL ENGINEER) [facility] Method Time Signature Interpretation ECG Click View RADIOLOGY Image link RESULTS to view waveform and result Specimen (Source) Anatomical Collection Method Collection Time Re ceived Time Location / / Volume Laterality 09/28/2018 11:42 AM REGIONAL ENGINEER Juan Vásquez MD ECG ORDERABLES Performing Organization Address City/State/ZIP Code Phon e Number RADIOLOGY RESULTS XR Chest 1 View (09/28/2018 11:21 AM REGIONAL ENGINEER) Anatomical Region Laterality Modality Chest Digital Radiography Specimen (Source) Anatomical Location Collection Method / Collectio n Time Received Time / Laterality Volume Impressions 09/28/2018 1:09 PM REGIONAL ENGINEER IMPRESSION: Heart size similar to prior. The thoracic aorta is elongated. No airspace consolidation or pneumothorax. There appears to be a small right pleural effusion. ELAINA HUNTLEY MD Narrative 09/28/2018 1:09 PM REGIONAL ENGINEER CHEST ONE VIEW ??09/28/2018 11:21 AM HISTORY: [...] ORDER [place]DEN Blood component (09/28/2018 11:11 AM REGIONAL ENGINEER) [facility] Method Time Signature Unit Number [id number] 09/28/2018 [facility] 1:21 PM [facility] Blood Red Blood 09/28/2018 [facility] Component Cells 1:21 PM [facility] Reduced Division 00 09/28/2018 [facility] Number 1:21 PM [facility] Status of No longer 10/02/2018 [facility] Unit available 3:00 AM [facility] 10/02/2018 HOSPITAL 0300 Blood Product [id number] 09/28/2018 [facility] Code 1:21 PM [facility] Unit Status RET [facility] Specimen Anatomical Collection Method Collection Time Receive d Time (Source) Location / / Volume Laterality 09/28/2018 11:11 09/28/2018 AM REGIONAL ENGINEER 11:44 AM REGIONAL ENGINEER Juan Vásquez MD LABORATORY Performing Organization Address City/State/ZIP Code Phon e Number M [facility] [address] [place], [place] [address] [facility] [address] [place] [address], [facility] [phone] [facility] [address] [place], [place] [address], [facility] [phone] Blood component (09/28/2018 11:11 AM REGIONAL ENGINEER) Patholo gist Method Time Signature Unit Number [id number] 09/28/2018 [facility] 1:21 PM REGIONAL ENGINEER [facility] Blood Red Blood 09/28/2018 [facility] Component Cells 1:21 PM REGIONAL ENGINEER [facility] Reduced Division 00 09/28/2018 [facility] Number 1:21 PM [facility] Status of No longer 10/02/2018 [facility] Unit available 3:00 AM [facility] 10/02/2018 HOSPITAL 0300 Blood Product [id number] 09/28/2018 [facility] Code 1:21 PM [facility] Unit Status RET [facility] Specimen Anatomical Collection Method Collection Time Receive d Time (Source) Location / / Volume Laterality 09/28/2018 11:11 09/28/2018 AM REGIONAL ENGINEER 11:44 AM REGIONAL ENGINEER Juan Vásquez MD LABORATORY Performing Organization Address City/State/ZIP Code Phon e Number M [facility] [address] [place], [place] [address] [facility] [address] [place] [address], [facility] [phone] [facility] [address] [place], [place] [address], [facility] [phone] Potassium (09/28/2018 11:11 AM REGIONAL ENGINEER) P athologist Signature Potassium 4.0 3.4 - 5.3 09/28/2018 [place] mmol/L 12:22 PM REGIONAL ENGINEER [facility] Specimen Anatomical Collection Method Collection Time Receive d Time (Source) Location / / Volume Laterality Blood specimen 09/28/2018 11:11 12/11/201 8 (specimen) AM REGIONAL ENGINEER 11:43 AM REGIONAL ENGINEER Ramiro Card MD LAB - BLOOD ORDERABLES Performing Organization Address City/State/ZIP Code Phon e Number M [facility] [address] [place] [address] [facility] [address] [place] [address], [place] [phone] Lipid panel (09/28/2018 11:11 AM REGIONAL ENGINEER) Analysis Performed At [facility] logist Time Signature Cholesterol 143 <200 mg/dL 09/28/2018 [facility] 12:22 PM [facility] Triglycerides 115 <150 mg/dL 09/28/2018 [facility] 12:24 PM [facility] HDL Cholesterol 68 >39 mg/dL 09/28/2018 [facility] 12:24 PM [facility] LDL Cholesterol 52 <100 mg/dL 09/28/2018 [facility] Calculated 12:24 PM [facility] Comment: Desirable: <100 mg/dl Non HDL Cholesterol 75 <130 mg/dL 09/28/2018 12:24 PM [facility] Specimen Anatomical Collection Method Collection Time Receive d Time (Source) Location / / Volume Laterality Blood specimen 09/28/2018 11:11 8 (specimen) AM REGIONAL ENGINEER 11:43 AM REGIONAL ENGINEER Juan Vásquez MD LAB - BLOOD ORDERABLES Performing Organization Address City/State/ZIP Code Phon e Number [facility] [address] [place] [address] [phone] [facility] [address] [place] [address], [place] [phone] (ABNORMAL) ABO/Rh type and screen (09/28/2018 11:11 AM REGIONAL ENGINEER) Component Value Ref Test Analysis Performed At [facility] gist Range Method Time Signature Units Ordered 2 09/28/2018 [facility] 11:54 AM [facility] ABO O 09/28/2018 [facility] 12:28 PM [facility] RH(D) Pos [facility] Antibody Screen Pos (A) 09/28/2018 [facility] 12:28 PM [facility] Test Valid Only [place] 09/28/[address] [facility] [address] [facility] 11:47 AM [facility] Specimen Expires 10/01/2018 09/28/2018 [facility] 11:47 AM [facility] Crossmatch Red Blood Cells 09/28/2018 [facility] 11:54 AM [facility] Blood Bank Delay in availability of Red Blood Cells called to 09/28/2018 [facility] Comment Esme in Preop at 1228 re 12:37 PM [facility] Antibody ANTI-[place] 09/28/2018 [facility] Identification 1:26 PM [facility] Antigen Type [place] Negative 09/28/2018 [facility] 1:26 PM [facility] Specimen Anatomical Collection Method Collection Time Receive d Time (Source) Location / / Volume Laterality Blood specimen 09/28/2018 11:11 8 (specimen) AM REGIONAL ENGINEER 11:44 AM REGIONAL ENGINEER Juan Vásquez MD LAB - BLOOD BANK TEST ORDER Performing Organization Address City/State/ZIP Code Phon e Number [facility] [address] [address] [facility] [address] [place] [address], [place] [phone] (ABNORMAL) Hemoglobin A1c (09/28/2018 11:11 AM REGIONAL ENGINEER) P athologist Signature Hemoglobin A1C 5.7 (H) 0 - 5.6 % 09/28/2018 [facility] 12:08 PM [facility] Comment: Normal <5.7% Prediabetes 5.7-6.4% ??Diab etes 6.5% or higher - adopted from ADA consensus guidelines. Specimen Anatomical Collection Method Collection Time Receive d Time (Source) Location / / Volume Laterality Blood specimen 09/28/2018 11:11 8 (specimen) AM REGIONAL ENGINEER 11:43 AM REGIONAL ENGINEER Juan Vásquez MD LAB - BLOOD ORDERABLES Performing Organization Address City/State/ZIP Code Phon e Number [facility] [address] [address] [facility] [address] [place] [address], [place] [phone] (ABNORMAL) Creatinine (09/28/2018 11:11 AM REGIONAL ENGINEER) P athologist Signature Creatinine 1.46 (H) 0.66 - 09/28/2018 [place] 1.25 mg/dL 12:22 PM [facility] GFR Estimate 47 (L) >60 09/28/2018 [place] mL/min/1.7 12:[address] Comment: Non GFR Calc GFR Estimate If 57 (L) >60 mL/min/1.7m2 09/28/2018 12:22 PM [facility] Comment: GFR Calc Specimen Anatomical Collection Method Collection Time Receive d Time (Source) Location / / Volume Laterality Blood specimen 09/28/2018 11:11 8 (specimen) AM REGIONAL ENGINEER 11:43 AM REGIONAL ENGINEER Juan Vásquez MD LAB - BLOOD ORDERABLES Performing Organization Address City/State/ZIP Code Phon e Number [facility] [address] [address] [phone] [facility] [address] [address], [place] [phone] LAB RESULT - HIM SCAN (09/24/2018 12:00 AM REGIONAL ENGINEER) Specimen (Source) Anatomical Location Collection Method / Collectio n Time Received Time / Laterality Volume 09/24/2018 Narrative This result has an attachment that is no t available. Provider Outside NON-BEAKER LAB TESTING EKG CARDIAC - HIM SCAN (09/24/2018 12:00 AM REGIONAL ENGINEER) Specimen (Source) Anatomical Location Collection Method / [...] (TYLENOL) tablet 975 Given 09/29/2018 5:41 AM REGIONAL ENGINEER 975 mg mg 975 mg, Oral, EVERY 8 HOURS, First dose on Thu09/28/18 at 2200, For 3 days, Do not use if patient has an active opioid/acetaminophen combined analgesic product ordered for pain. Maximum acetaminophen dose from all sources = 75 mg/kg/day not to exceed 4 grams/day., Post-procedure Given 09/28/2018 9:50 PM REGIONAL ENGINEER 975 mg apixaban ANTICOAGULANT (ELIQUIS) tablet 2.5 Given 09/29/2018 8:22 AM REGIONAL ENGINEER 2.5 mg mg 2.5 mg, Oral, 2 TIMES DAILY, First dose on Thu09/29/18 at 0900 atorvastatin (LIPITOR) tablet 40 mg Given 09/28/2018 9:50 PM REGIONAL ENGINEER 40 mg 40 mg, Oral, EVERY EVENING, First dose on Thu09/28/18 at 2000 ceFAZolin (ANCEF) intermittent infusion Given 09/29/2018 5:4 1 AM REGIONAL ENGINEER 2 g 200 mL/hr 2 g in 100 mL dextrose PRE-MIX Routine, 2 g, Intravenous, EVERY 8 HOURS, First dose on Thu09/28/18 at 2100, For 2 doses, Indications: Perioperative Pharmacoprophylaxis, Post-procedure Given 09/28/2018 9:55 PM REGIONAL ENGINEER 2 g 200 mL/hr fentaNYL (PF) (SUBLIMAZE) injection 100 mcg Given 09/28/2018 12:07 PM REGIONAL ENGINEER 50 mcg 100 mcg, Intravenous, ONCE, On Thu09/28/18 at 1100, For 1 dose, For ordered IV doses 1-100 mcg give IV Push undiluted over a minimum of 3-5 minutes. fentaNYL (PF) (SUBLIMAZE) injection 25-5 0 mcg Given 09/28/2018 4:04 PM REGIONAL ENGINEER 25 mcg 25-50 mcg, Intravenous, EVERY 2 [...] 3-5 minutes., PACU Given 09/28/2018 3:50 PM REGIONAL ENGINEER 25 mcg Given 09/28/2018 3:41 PM REGIONAL ENGINEER 25 mcg hydrALAZINE (APRESOLINE) injection 2.5-5 mg Given 09/28/2018 4:10 PM REGIONAL ENGINEER 5 mg 2.5-5 mg, Intravenous, EVERY 10 [...] solution 80 mL Given 09/29/2018 11:37 AM REGIONAL ENGINEER 80 mLs 80 mL, Intravenous, ONCE, On Thu09/29/18 at 1130, For 1 dose lactated ringers infusion New Bag 09/28/2018 12:16 PM REGIONAL ENGINEER 25 mL/hr at 25 mL/hr, Intravenous, CONTINUOUS, IF patient NOT on dialysis., Pre-procedure, Starting on Thu09/28/18 at 1115, Until Thu09/28/18 at 1457 lactated ringers infusion New Bag 09/29/2018 2:48 AM REGIONAL ENGINEER 125 mL/hr at 125 mL/hr, Intravenous, CONTINUOUS, NOT for patient on renal dialysis. Saline lock after 1 liter if taking PO fluids., Post-procedure, Starting on Thu09/28/18 at 1800, Until Thu09/29/18 at 1753 Rate/Dose Verify 09/29/2018 12:39 AM REGIONAL ENGINEER 125 mL/hr New Bag 09/28/2018 6:31 PM REGIONAL ENGINEER 125 mL/hr lidocaine 1 % 1 mL Given 09/28/2018 12:00 PM REGIONAL ENGINEER 0.3 mLs 1 mL, Other, EVERY 1 HOUR PRN, mild pain with VAD insertion or accessing implanted port, Starting on Thu09/28/18 at 1101, Do NOT give if patient has a history of allergy to any local anesthetic or any louie product. MAX dose 1 mL subcutaneous OR intradermal in divided doses., Pre-procedure lisinopril (PRINIVIL/ZESTRIL) tablet 5 m g Given 09/29/2018 8:21 AM REGIONAL ENGINEER 5 mg 5 mg, Oral, 2 TIMES DAILY, First dose on Thu09/28/18 at 2100 Given 09/28/2018 9:52 PM REGIONAL ENGINEER 5 mg melatonin tablet 10 mg Given 09/29/2018 2:48 AM REGIONAL ENGINEER 10 mg 10 mg, Oral, AT BEDTIME PRN, sleep, Starting on Thu09/29/18 at 0044 metoprolol tartrate (LOPRESSOR) tablet 5 0 mg Given 09/29/2018 8:21 AM REGIONAL ENGINEER 50 mg 50 mg, Oral, 2 TIMES DAILY, First dose on Thu09/28/18 at 2100 Given 09/28/2018 9:50 PM REGIONAL ENGINEER 50 mg midazolam (VERSED) injection 2 mg Given 09/28/2018 12:10 PM REGIONAL ENGINEER 1 mg 2 mg, Intravenous, ONCE, On Thu09/28/18 at 1100, For 1 dose, For ordered IV doses 0.1-2.5 mg give IV Push slowly titrated over a minimum of 2 minutes. Dilute each 1mg in 4mL of NS. Given 09/28/2018 12:07 PM REGIONAL ENGINEER 1 mg oxyCODONE (ROXICODONE) tablet 5 mg Given 09/28/2018 10:49 PM REGIONAL ENGINEER 5 mg 5 mg, Oral, EVERY 3 HOURS PRN, other, pain control or improvement in physical function. Hold dose for analgesic side effects., Starting on Thu09/28/18 at 1751, Notify provider to assess for uncontrolled pain or analgesic side effects. Hold while on MGMT SPECIALIST or with regular IV opioid dosing. Maximum total is 40 mg in 24 hours., Post-procedure Saline flush Given 09/29/2018 11:37 AM REGIONAL ENGINEER 80 mLs Intravenous, 80 mL, ONCE, On Thu09/29/18 at 1130, For 1 dose sodium chloride (PF) 0.9% PF flush 3 mL Given 09/28/2018 9:58 PM REGIONAL ENGINEER 3 mLs 3 mL, Intracatheter, EVERY 8 HOURS, First dose on Thu09/28/18 at 2200, And Q1H PRN, to lock peripheral IV dormant line., Post-procedure terazosin (HYTRIN) capsule 5 mg Given 09/28/2018 10:49 PM REGIONAL ENGINEER 5 mg 5 mg, Oral, AT BEDTIME, First dose on Thu09/28/18 at 2200 documented in this encounter Active and Recently Administered Medications Times are shown in REGIONAL ENGINEER. Scheduled Medication Order 09/27/2018 09/28/2018 09/29/2018 acetaminophen [...] RN)1318 (Given - Provider: Mattie Marmolejo APRN VAUDEVILLE ACTOR) 900 mg, Intravenous, PRE-OP/PRE-PROCEDUR E, Starting Thu09/28/18 [...] 5 mg 2151 (Given - Provider: Ira Suoth RN) 08 (Given - Provider: Cary Harper) [...] Volume Adjustment - Provider: Mattie Marmolejo APRN VAUDEVILLE ACTOR)1432 (Anesthesia Volume Adjustment - Provider: Mattie Marmolejo APRN VAUDEVILLE ACTOR) at 25 mL/hr, Intravenous, CONTINUOUS, IF patient [...] analgesic side effects. Hold whil e on MGMT SPECIALIST or with regular IV opioid dosing. Maximum total is 40 mg in 24 hours., Post-procedure sodium chloride (PF) 0.9% PF flush 3 mL 3 mL, Intracatheter, EVERY 1 HOUR PRN, l ine flush, for peripheral IV flush post IV meds, Starting Thu09/28/18 at 1751, Post-procedure documented in this encounter Care Teams Pneumatic Jacketer Relationship Specialty Start Date End Date [facility], [facility] PCP - General 05/12/[address] [place] [address] documented as of this encounter
--- OUTSIDE RECORDS SUMMARY | 2022-05-30 08:45 | XMS_ITS | Encounter Summary ---
:1940 Author Organization [place] Address [address] [place] [address] Care Team Providers Name Role Phone Clinic, [facility] Primary Care Provider [phone] Reason for Visit Reason Onset Date Comments Evp 11/23/2017 Encounter Details Date Type Department Care Team Description 11/23/2017 Telephone [facility] Heart Erica Saldana, Evp Clinic Tram GARCIA [address] [facility] [address] [place] [address] Social History Tobacco Use Types [...] Olive Saldana RN - 11/27/2017 4:02 PM FBI SPECIAL AGENT Call to daughter; Ed was seen again in the ED on 11-15-17, 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 Eliquis was started by Dr Quintanilla/ Eusebia SPECIAL AGENT Telephone Encounter - Taran Lugo MD - [...] if he is on one. Thanks, qp SPECIAL AGENT Telephone Encounter - Olive Saldana RN - 11/23/2017 2:47 PM FBI SPECIAL AGENT Call from daughterRaquel. States her dad wore a ZioPatch ordered by Dr Lugo to assess AF burden (ischemic/infarct areas seen in the brains). Daughter states the monitor was worn for 4 days (preferred2 weeks); it fell off she feels d/t the hair on his chest. Will note to Dr Lugo to advise re: havinganother placed. SueLangenbrunnerRN SPECIAL AGENT documented in this encounter Plan of Treatment Not on filedocumented as of this encounter Visit Diagnoses Not on filedocumented in this encounter Care Teams Fur Mixer Operator Relationship Specialty Start Date End Date [facility], [facility] PCP - General 05/12/[address] [place] [address] documented as of this encounter
--- OUTSIDE RECORDS SUMMARY | 2022-05-30 08:45 | XMS_ITS | Encounter Summary ---
:1940 Author Organization [place] Address [address] [place] [address] Care Team Providers Name Role Phone Kehinde Portillo Primary Care Provider [phone] Encounter Details Date Type Department Care Team [...] on filedocumented in this encounter Care Teams Urban Renewal Manager Relationship Specialty Start Date End [facility] - [facility] [place] [address] [id number] documented as of this encounter
--- OUTSIDE RECORDS SUMMARY | 2022-05-30 08:45 | XMS_ITS | Encounter Summary ---
:1940 Author Organization [place] Address [facility] [place] [address] Care Team Providers Name Role Phone [facility] Primary [facility] Provider Reason for Visit Reason Comments Consult U/S done 05/17/2018 Encounter Details Date Type Department Care Team Description 06/03/2018 Office Visit [facility] Juan Lewis aortic Surgery Clinic MD Elijah aneurysm (AAA) without [place] [address] rupture (H) (Primary [address]) [address] [place] [address] [place], [place] [phone] [address] (Work) [phone] Social History Tobacco Use Types Packs/Day Years [...] Primary documented in this encounter Care Teams Sales Audit Clerk Relationship Specialty Start Date End Date [facility] PCP - General 05/12/[address] [place], [place] [id number] documented as of this encounter
--- OUTSIDE RECORDS SUMMARY | 2022-05-30 08:45 | XMS_ITS | Encounter Summary ---
:1940 Author Organization [place] Address [address] [place] [address] Care Team Providers Name Role Phone Clinic, [facility] Primary Care Provider [phone] Reason for Visit Surgical Procedure Inpatient (Routine) - Closed Specialty Diagnoses / Procedures Referred By Contact Refer red To Contact Surgery Diagnoses AAA Juan Lewis MD Saylor, Howard Leroy, Procedures *OR 51* DR. ALANIZ TO ASSIST WITH ENDOVASCULAR REPAIR OF AAA WITH [employer]FT [address] [place] [address]11[address] [address] [place] [address] Phone: Fax: Referral ID Status Reason Start Date Expiration Date Visits Requ ested Visits Authorized [id number] Closed 09/28/2018 09/28/2019 1 1 Encounter Details Date Type Department Care Team Description 09/28/2018 Office Visit [facility] Juan Lewis MD [address] [place] [id number] Fellow, Sh Surg Cons Social History Tobacco [...] on filedocumented in this encounter Care Teams Delivery Room Supervisor Relationship Specialty Start Date End Date [facility] - General 05/12/[address] [place] [address] documented as of this encounter
--- OUTSIDE RECORDS SUMMARY | 2022-05-30 08:45 | XMS_ITS | Encounter Summary ---
:1940 Author Organization [place] Address [address] [place] [address] Care Team Providers Name Role Phone Clinic, [facility] Primary Care Provider [phone] Reason for Visit Reason Onset Date Comments Referral 05/21/2018 Encounter Details Date Type Department Care Team Description 05/21/2018 [facility] Cindy Taylor, automation/controls manager Tram [address] [address] Social History Tobacco Use Types Packs/Day [...] this encounter Miscellaneous Notes Telephone Encounter - Lillian Uribe MA - 05/21/2018 4:18 PM CDT Left message on home number for patient to call back to schedule consult appointment with Dr. Lewis. Telephone Encounter - Cindy Taylor, RN - 05/21/2018 4:03 PM CDT Pt referred to [facility] via fax by Marija Ramirez MD for known AAA increased in size to 4.4X4.6 cm- pt has known about AAA for past 55 years and has monitored it with annual US. US done on 05/17/18 in care everywhere from [facility]. Pt needs to be scheduled for consult with Dr. Lewis. Will route to scheduling to coordinate an appointment within the next week. SHASTA Chand, RN documented in this encounter Plan of Treatment Not on filedocumented as of this encounter Visit Diagnoses Not on filedocumented in this encounter Care Teams Filenet Architect Relationship Specialty Start Date End Date [facility], [facility] PCP - General 05/12/[address] [place] [address] documented as of this encounter
--- OUTSIDE RECORDS SUMMARY | 2022-05-30 08:45 | XMS_ITS | Encounter Summary ---
:1940 Author Organization [place] Address [address] [place] [address] Care Team Providers Name Role Phone [facility], [facility] Primary Care Provider [phone] Reason for Referral Diagnostic Imaging CT Scan - Closed Specialty Diagnoses / Procedures Referred By Contact Refer red To Contact Diagnoses Abdominal aortic aneurysm (H) Juan Lewis MD Procedures CTA Abdomen Pelvis with Contrast [address] [place] [address] Referral ID Status Reason Start Date Expiration Date Visits Requ ested Visits Authorized [id number] Closed 06/03/2018 06/03/2019 1 1 Encounter Details Date Type Department Care Team Description 06/03/[address] [facility] Juan Lewis Abdompepe l aortic Vascular Clinic Félix Nava MD aneurysm (H) (Primary [address] ) [address] [place] [address] [place] 844[address] Social History Tobacco Use Types Packs/Day Years [...] pture documented in this encounter Care Teams Bisque Brusher Relationship Specialty Start Date End Date Bandar, Kehinde Portillofield PCP - General 05/12/[address] [place] [address] documented as of this encounter
--- OUTSIDE RECORDS SUMMARY | 2022-05-30 08:45 | XMS_ITS | Encounter Summary ---
:1940 Author Organization [place] Address [facility] [place] [address] Care Team Providers Name Role Phone Clinic, [facility] Primary Care Provider [phone] Reason for Visit Reason Onset Date Comments Appointment 06/18/2018 Encounter Details Date Type Department Care Team Description 06/18/2018 Telephone [facility] Vascular Juan Delcid MD Appointment Clinic [place] [address] [place] [address] [place] [address] [phone] Social History Tobacco Use Types Packs/Day Years [...] only with Dr. Lewis on 07/01/18 in [place]. Pt had no further questions at this [...] on filedocumented in this encounter Care Teams Heart Specialist Relationship Specialty Start Date End Date Bandar, Kehinde Portillofield PCP - General 05/12/[address] [place] [address] documented as of this encounter
--- OUTSIDE RECORDS SUMMARY | 2022-05-30 08:45 | XMS_ITS | Encounter Summary ---
:1940 Author Organization [place] Address [address] [place] [address] Care Team Providers Name Role Phone Clinic, [facility] Primary Care Provider [phone] Reason for Referral - Closed Specialty Diagnoses / Procedures Referred By Contact Refer red To Contact Diagnoses Paroxysmal atrial fibrillation (H) Taran Lugo MD Procedures Zio Patch Monitor [address] [place] [address] Referral ID Status Reason Start Date Expiration Date Visits Requ ested Visits Authorized [id number] Closed 11/25/2017 11/25/2018 1 1 QUALITY TECHNICIAN Reason for Visit (Routine) - Closed Specialty Diagnoses / Procedures Referred By Contact Refer red To Contact Cardiology Procedures Zzrh Cardiac Test Rscc ZIOPATCH MONITOR [address] [place], [place] [address] Phone: Fax: Referral ID Status Reason Start Date Expiration Date Visits Requ ested Visits Authorized [id number] Closed 11/17/2017 11/17/2018 1 1 Encounter Details Date Type Department Care Team Description 11/17/2017 Hospital Encounter [facility] Taran Lugo [facility] atrial [facility] MD fibrillation (H) [address] [address] [place], [place] [phone] Social History Tobacco Use Types Packs/Day Years [...] Per EPIC and pt, pt's daughter called [facility]'s nurse and they are aware of the situation. I called pt back and he did mail the monitor yesterday. We will see what shows up and see if Brittney would like him to redo the monitor or keep what he gets from the one mailed back. QUALITY TECHNICIAN Kiarra Rubalcava - 11/17/2017 3:49 PM CST Ziopatch heart monitor was set up. Patient stated that Dr. Quintanilla ordered the event monitor but Dr. Lugo wanted him to wear a ziopatch for 14 days. Patient was then set up with a ziopatch. QUALITY TECHNICIAN documented in this encounter Plan of Treatment Not on filedocumented as of this encounter Procedures Procedure Name Priority Date/Time Associated Diagnosis Comme nts ZIO PATCH HOLTER Routine 11/22/2017 Paroxysmal atrial Result s for this fibrillation (H) procedure a re in the results section . documented in this encounter Results Zio Patch Monitor (11/22/2017) Narrative [facility] - 11/22/2017 [facility] [address] [place] [phone] 11/17/2017 Patient: ??Speedy Burris [place] Chart: [id number] : ??1940 Age: ??77 year old Sex: ??male Procedure: ??ZioPatch Monitor. Dietary Clerk performing hook-up: ??Kiarra Rubalcava Taran Gamboa MD CV CARDIAC SERVICES ORDERABL ES Performing Organization Address City/State/ZIP Code Phon e Number [facility] documented in this encounter Visit Diagnoses Diagnosis Paroxysmal atrial fibrillation (H) Atrial fibrillation documented in this encounter Care Teams Administrative Technician Relationship Specialty Start Date End Date [facility], [facility] PCP - General 05/12/[address] [place], [place] [phone] documented as of this encounter
--- OUTSIDE RECORDS SUMMARY | 2022-05-30 08:45 | XMS_ITS | Encounter Summary ---
:1940 Author Organization [place] Address [address] [place] [address] Care Team Providers Name Role Phone Clinic, [facility] Primary Care Provider [phone] Reason for Visit CV Testing - Closed Specialty Diagnoses / Procedures Referred By Contact Refer red To Contact Cardiology Diagnoses Transient cerebral ischemia, unspecified type Luis Antonio Quintanilla MD Rh Echo cc Procedures ECHO COMPLETE BUBBLE STUDY WITH OPTISON Echo Complete Bubble [address] [address] [place] [address] [address] [place] [address] Phone: Fax: Referral ID Status Reason Start Date Expiration Date Visits Requ ested Visits Authorized [id number] Closed 11/16/2017 11/16/2018 1 1 Encounter Details Date Type Department Care Team Description 11/17/2017 Hospital Encounter [facility] [place] Luis Antonio Quintanilla [facility] MD [place] ischemia, unspecified Heart Care [address] type [address] [place], [place] [address] [address] [place], [place] [phone] [address] (Work) [phone] Social History Tobacco Use Types Packs/Day Years [...] Re sults for this BUBBLE STUDY WITH SOFTBALL CORE MOLDER ischemia, procedure are in OPTISON unspecified type the results section. documented in this encounter Results ECHO COMPLETE BUBBLE STUDY WITH OPTISON (11/17/2017 2:35 PM SOFTBALL CORE MOLDER) Anatomical Region Laterality Modality Echocardiography Specimen (Source) Anatomical Collection Method Collection Time Re ceived Time Location / / Volume Laterality 11/17/2017 1:54 PM SOFTBALL CORE MOLDER Narrative 11/17/2017 3:15 PM SOFTBALL CORE MOLDER [id number]^ARNAUD^LUIS ANTONIO^PIPPA [facility] Echocardiography Laboratory [address] [place] [address] Name: SPEEDY MCDUFFIE : 1940 Study Date: 11/17/2017 01:54 PM Age: 77 yrs Gender: Male Patient Location: [facility] Reason For Study: , Transient cerebral i [...] note might be different from the original. [id number]^ARNAUD^LUIS ANTONIO^PIPPA [facility] Echocardiography Laboratory [address] [place] [address] Name: SPEEDY MCDUFFIE : 1940 Study Date: 11/17/2017 01:54 PM Age: 77 yrs Gender: Male Patient Location: [facility] Reason For Study: , Transient cerebral i [...] Doppler Measurements & Calculations MV E max reynodl: 103.1 cm/sec MV A max reynold: 103.6 [...] to 2mL with Given 11/17/2017 2:45 PM SOFTBALL CORE MOLDER 3 mLs saline (OPTISON) diluted injection 3 mL 3 mL, Intravenous, ONCE, On Thu11/17/17 at 1445, For 1 dose, [facility] [id number] sodium chloride (PF) 0.9% PF flush 10 mL Given 11/17/2017 2:37 PM SOFTBALL CORE MOLDER 10 mLs 10 mL, Intravenous, ONCE, On Thu11/17/17 at 1445, For 1 dose sodium chloride bacteriostatic 0.9 % flush 30 Given 2:37 PM SOFTBALL CORE MOLDER 30 mLs mL 30 mL, Intravenous, ONCE, On Thu11/17/17 at 1445, For 1 dose documented in this encounter Care Teams Elementary Math Tutor Relationship Specialty Start Date End Date [facility], [facility] PCP - General 05/12/[address] [place] [address] documented as of this encounter
--- OUTSIDE RECORDS SUMMARY | 2022-05-30 08:45 | XMS_ITS | Encounter Summary ---
:1940 Author Organization [place] Address [address] [place] [address] Care Team Providers Name Role Phone Clinic, [facility] Primary Care Provider [phone] Reason for Visit Auth/Cert Specialty Diagnoses / Procedures Referred By Contact Refer red To Contact Surgery Diagnoses ABDOMINAL AORTIC ANEURYSM Periop Services Procedures ENDOVASCULAR REPAIR ANEURYSM ABDOMINAL AORTA [address], [address] [place] [address] Phone: Referral ID Status Reason Start Date Expiration Date Visits Requ ested Visits Authorized [id number] 1 1 Encounter Details Date Type Department Care Team Description 09/28/[address] [facility] Juan Vásquez FEMORAL [place] PeriOP MD Elijah CUTDOWN WITH ANGIOGRAM Services [address] [place] [address] [place] [address] [phone] Surgery Details Date/Time Status Location OR Service [...] Comments Blood Pressure 146/79 09/28/2018 3:00 PM CUSTOMS COMPLIANCE SPECIALIST Pulse 60 09/28/2018 11:21 AM CUSTOMS COMPLIANCE SPECIALIST Temperature 36.5 ??C (97.7 ??F) 09/28/2018 3:00 PM CUSTOMS COMPLIANCE SPECIALIST Respiratory Rate 9 09/28/2018 3:50 PM CUSTOMS COMPLIANCE SPECIALIST Oxygen Saturation 94% 09/28/2018 3:50 PM CUSTOMS COMPLIANCE SPECIALIST Inhaled Oxygen Concentration - - Weight 84.8 kg (187 lb) 09/28/2018 11:21 AM CUSTOMS COMPLIANCE SPECIALIST Height 170.2 cm (5' 7) 09/28/2018 11:21 AM CUSTOMS COMPLIANCE SPECIALIST Body Mass Index 29.41 09/28/2018 11:21 AM CUSTOMS COMPLIANCE SPECIALIST documented in this encounter Discharge Summaries Juan [...] MD MT: RIO Name: SPEEDY MCDUFFIE Account: [id number] : 1940 Admit Date: 09/28/2018 Discharge Date: 09/29/2018 Document: [id number] cc: Primary OMS COMPLIANCE SPECIALIST documented in this encounter Medications at [...] Levi MD - 09/29/2018 9:32 AM CST [facility] Vascular Medicine Progress Note Date of [...] aorta. Exchange was made for a 6 Fijian vascular sheath. 18-gauge singlewall needle was then advanced into the left common femoral artery through which a 0.035 inch Bentson wire was advanced in the abdominal aorta. Exchange is made for a 6 Fijian vascular sheath. Via the left groin access, a 5 Fijian pigtail catheter was advanced over the Bentson wire into the abdominal aorta. Via the right groin, a 5 Fijian pigtail catheter was advanced over the Bentson [...] [facility] at [phone] to have the rounding/extrusion process operator Vascular Medicine (NOT VASCULAR SURGERY) paged. - After business hours M-F,??for medical concerns on this patient, please page hospitalist staff. - For vascular surgical questions, please page the appropriate surgeon (primary vascular surgeon or extrusion process operator vascular surgeon) based upon the time of day. Lambert Fontanez PA-C Zoltan Londono MD - 09/29/2018 8:19 AM CST [facility] Vascular Surgery Progress Note Assessment & Plan [...] the [facility] Vascular [facility] at [phone] to have the rounding/extrusion process operator Vascular Medicine (NOT VASCULAR SURGERY) MD paged. - After business hours M-,??for medical concerns on this patient, please page hospitalist staff. - For vascular surgical questions, please page the appropriate surgeon (primary vascular surgeon or extrusion process operator vascular surgeon) based upon the time of day. Brandie Barrera PA-C Michelle Jones - 09/28/2018 10:42 AM CST Admission medication history interview status for the 09/28/2018 admission is complete. See [facility] admission navigator for prior to admission medications Medication history source reliability:Good Medication history interview source(s):Patient Medication history resources (including written lists, pill bottles, clinic record):Patient mailed in his medication list prior to surgery Primary pharmacy.[facility] Additional medication history information not noted on APPEALS WRITER med list :None Time spent in this [...] at HS Yes Unknown, Entered By History OMS COMPLIANCE SPECIALIST documented in this encounter Procedure Notes Jacqui [...] for procedural details. Provider name: Jacqui Odom Nurse Unit Manager(s):None OMS COMPLIANCE SPECIALIST documented in this encounter Consult Notes Carrie [...] 1978. 2. Cervical fusion, Dr. Donahue at [facility] 02/18/2006. 3. Hardware removal and matrixectomy, right great toe, 09/30/2012. 4. Lumbar fusion 10/1996, L5-S1. 5. Lumbar fusion 1999, L4. 6. 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 7. Laparoscopic appendectomy, 01/2009. SOCIAL HISTORY: The patient is . He has 2 children. 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 He quit smoking [id number] after a 1/4 pack per day use [...] MD MT: JACKSON Name: SPEEDY MCDUFFIE Account: [id number] : 1940 Consult Date: 09/28/2018 Document: [id number] OMS COMPLIANCE SPECIALIST documented in this encounter Miscellaneous Notes [...] MD MT: JACKSON Name: SPEEDY MCDUFFIE Account: [id number] : 1940 Procedure Date: 09/28/2018 Document: [id number] OMS COMPLIANCE SPECIALIST Plan of Care - Griselda Dinero RN [...] will continue to follow up with this. OMS COMPLIANCE SPECIALIST Provider Notification - Levi Hollingsworth MD - 09/29/2018 12:46 AM CUSTOMS COMPLIANCE SPECIALIST Brief update: Paged re: request for home melatonin 10 mg melatonin HS PRN added. Levi Hollingsworth MD 12:47 AM OMS COMPLIANCE SPECIALIST Plan of Care - Ira South RN - 09/28/2018 11:11 PM CST A&O, VSS, Lung sounds clear, Bowel sounds active,adeqaute urine output, incision right & letgroin CDI Ambulates assist 1, Regular diet, tolerating liquids with poor appetite. Pain controlled by scheduled tylenol and PRN oxycodone. OMS COMPLIANCE SPECIALIST Plan of Care - Vandana Smith RN - 09/28/2018 7:22 PM CST Pt is came from PACU.Groin site dressing clean dry and intact.Not void yet.Ice pack given.IVF running .will monitor. OMS COMPLIANCE SPECIALIST documented in this encounter Plan of Treatment Not on filedocumented as of this encounter Procedures Procedure Name Priority Date/Time Associated Comments Diagnosis CTA CHEST WITH Routine 09/29/2018 11:38 Results f or this CONTRAST AM CUSTOMS COMPLIANCE SPECIALIST procedure are i n the results section. BASIC METABOLIC PANEL Timed 09/29/2018 10:06 AAA (abdominal Results for this AM CUSTOMS COMPLIANCE SPECIALIST aortic aneurysm) procedure a re in (H) the results section. GLUCOSE BY METER Routine 09/29/2018 6:00 AM AAA (abdominal Res ults for this CUSTOMS COMPLIANCE SPECIALIST aortic aneurysm) procedure a re in (H) the results section. ANGIOGRAM Routine 09/28/2018 2:39 PM CUSTOMS COMPLIANCE SPECIALIST IR ABDOMINAL Routine 09/28/2018 2:17 PM AAA (abdominal Results for this ENDOVASCULAR STENT CUSTOMS COMPLIANCE SPECIALIST aortic aneurysm) proce dure are in GRAFT (H) the results section. EKG 12-LEAD, TRACING STAT 09/28/2018 11:42 Res ults for this ONLY AM CUSTOMS COMPLIANCE SPECIALIST procedure are i n the results section. XR CHEST 1 VIEW STAT 09/28/2018 11:21 Results for this AM CUSTOMS COMPLIANCE SPECIALIST procedure are i n the results section. BLOOD COMPONENT Routine 09/28/2018 11:11 AAA (abdominal Result s for this AM CUSTOMS COMPLIANCE SPECIALIST aortic aneurysm) procedure a re in (H) the results section. BLOOD COMPONENT Routine 09/28/2018 11:11 AAA (abdominal Result s for this AM CUSTOMS COMPLIANCE SPECIALIST aortic aneurysm) procedure a re in (H) the results section. POTASSIUM STAT 09/28/2018 11:11 AAA (abdominal Results f or this AM CUSTOMS COMPLIANCE SPECIALIST aortic aneurysm) procedure a re in (H) the results section. LIPID PROFILE STAT 09/28/2018 11:11 AAA (abdominal Results for this AM CUSTOMS COMPLIANCE SPECIALIST aortic aneurysm) procedure a re in (H) the results section. HEMOGLOBIN A1C STAT 09/28/2018 11:11 AAA (abdominal Results for this AM CUSTOMS COMPLIANCE SPECIALIST aortic aneurysm) procedure a re in (H) the results section. CREATININE STAT 09/28/2018 11:11 AAA (abdominal Results f or this AM CUSTOMS COMPLIANCE SPECIALIST aortic aneurysm) procedure a re in (H) the results section. ABO/RH TYPE AND STAT 09/28/2018 11:11 AAA (abdominal Result s for this SCREEN AM CUSTOMS COMPLIANCE SPECIALIST aortic aneurysm) procedure a re in (H) the results section. LAB RESULT - HIM SCAN 09/24/2018 12:00 AM CUSTOMS COMPLIANCE SPECIALIST EKG CARDIAC - HIM 09/24/2018 12:00 SCAN AM CUSTOMS COMPLIANCE SPECIALIST documented in this encounter Results CTA Chest with Contrast (09/29/2018 11:38 AM CUSTOMS COMPLIANCE SPECIALIST) Anatomical Region Laterality Modality Chest, SUBRAD IR PROCEDURE, UMP CT CTA, RAD CT Computed Tomography Specimen (Source) Anatomical Location Collection Method / Collectio n Time Received Time / Laterality Volume Impressions 09/29/2018 4:30 PM CUSTOMS COMPLIANCE SPECIALIST IMPRESSION: Tortuous descending thoracic aorta with bilobed aneurysmal dilatation measuring up to 50 mm in diameter in the distal descending aorta. JAQCUI ODOM MD Narrative 09/29/2018 4:30 PM CUSTOMS COMPLIANCE SPECIALIST PROCEDURE: CTA of the chest DATE OF [...] ORDERABLES Basic metabolic panel (09/29/2018 10:06 AM CUSTOMS COMPLIANCE SPECIALIST) [facility] Method Time Signature Sodium 141 133 - 144 09/29/2018 [place] mmol/L 10:31 [address] CUSTOMS COMPLIANCE SPECIALIST [facility] Potassium 4.5 3.4 - 5.3 09/29/2018 [place] mmol/L 10:31 AM [facility] Chloride 109 94 - 109 09/29/2018 [place] mmol/L 10:31 AM [facility] Carbon Dioxide 25 20 - 32 09/29/2018 [place] mmol/L 10:31 AM [facility] Anion Gap 7 3 - 14 09/29/2018 [place] mmol/L 10:31 AM [facility] Glucose 97 70 - 99 09/29/2018 [place] mg/dL 10:31 AM [facility] Urea Nitrogen 18 7 - 30 09/29/2018 [place] mg/dL 10:31 AM [facility] Creatinine 1.25 0.66 - 09/29/2018 [place] 1.25 10:31 AM [facility] GFR Estimate Not Calculated >60 09/29/2018 [place] mL/min/1. 10:[address] GFR Estimate Not Calculated >60 09/29/2018 [place] If Black mL/min/1. 10:[address] Calcium 8.8 8.5 - 09/29/2018 [place] 10.1 10:31 AM [facility] mg/dL [facility] Specimen Anatomical Collection Method Collection Time Receive d Time (Source) Location / / Volume Laterality Blood specimen 09/29/2018 10:06 8 (specimen) AM CUSTOMS COMPLIANCE SPECIALIST 10:07 AM CUSTOMS COMPLIANCE SPECIALIST Pam Conde PA-C LAB - BLOOD ORDERABLES Performing Organization Address City/State/ZIP Code Phon e Number M [facility] [address] [address] [facility] [address] [address], [facility] [phone] (ABNORMAL) Glucose by meter (09/29/2018 6:00 AM CUSTOMS COMPLIANCE SPECIALIST) P athologist Signature Glucose 109 (H) 70 - 99 09/29/2018 PO[facility] CARE mg/dL 6:18 AM CUSTOMS COMPLIANCE SPECIALIST TEST, GLUCOSE Specimen Anatomical Collection Method Collection Time Receive d Time (Source) Location / / Volume Laterality 09/29/2018 6:00 AM 8 6:18 CUSTOMS COMPLIANCE SPECIALIST AM CUSTOMS COMPLIANCE SPECIALIST Juan Vásquez MD LAB - CAROLYN POCT Performing Organization Address City/State/ZIP Code Phon e Number [facility] POINT OF CARE TEST, GLUCOSE POINT OF CARE TEST, GLUCOSE IR Abdominal Endovascular Stent Graft (09/28/2018 2:17 PM CUSTOMS COMPLIANCE SPECIALIST) Anatomical Region Laterality Modality Abdomen/Pelvis Radio Fluoroscopy Specimen (Source) Anatomical Location Collection Method / Collectio n Time Received Time / Laterality Volume Impressions 09/29/2018 8:52 AM CUSTOMS COMPLIANCE SPECIALIST Impression: 1. Thoracic and abdominal angiography de monstrating previously unknown thoracic aortic aneurysm as well as the known abdominal aortic aneurysm 2. Endovascular aneurysm repair was abor clover to allow for further investigation of the thoracic aortic ane urysm and future surgical planning. JACQUI ODOM MD Narrative 09/29/2018 8:52 AM CUSTOMS COMPLIANCE SPECIALIST PROCEDURE(S): 1. Thoracic and abdominal aortic angiogr [...] aneurysm repair. A timeout was performed per [facility] rsal protocol policy to confirm the correct [...] aorta. Exchange was made for a 6 Fijian vascula r sheath. 18-gauge singlewall needle was then advanced into the left c ommon femoral artery through which a 0.035 inch Bentson wire was adva nced in the abdominal aorta. Exchange is made for a 6 Fijian vascular sheath. Via the left groin access, a 5 Fijian pigtail catheter was advanced over the Bentson wire into the abdominal aorta. Via the right groin, a 5 Fijian pigtail catheter was advanced over the Bentson [...] aneurysm repair. A timeout was performed per [facility] protocol policy to confirm the correct patient, site and pr ocedure to be performed. Please note that due to the complex natu re of the procedure, a multi-disciplinary approach was used [facility] involved Mili Vásquez and Lei functioning as co-surgeons for t his procedure. Bilateral common femoral arteries were s urgically exposed, see separate operative report for details. A n 18-gauge singlewall needle was then inserted into the right common femoral artery through which a 0.035 inch Bentson wire was advanced int o the abdominal aorta. Exchange was made for a 6 Fijian vascula r sheath. 18-gauge singlewall needle was then advanced into the left c ommon femoral artery through which a 0.035 inch Bentson wire was adva nced in the abdominal aorta. Exchange is made for a 6 Fijian vascular sheath. Via the left groin access, a 5 Fijian pigtail catheter was advanced over the Bentson wire into the abdominal aorta. Via the right groin, a 5 Fijian pigtail catheter was advanced over the Bentson [...] EKG 12-lead, tracing only (09/28/2018 11:42 AM CUSTOMS COMPLIANCE SPECIALIST) [facility] Method Time Signature Interpretation ECG Click View RADIOLOGY Image link RESULTS to view waveform and result Specimen (Source) Anatomical Collection Method Collection Time Re ceived Time Location / / Volume Laterality 09/28/2018 11:42 AM CUSTOMS COMPLIANCE SPECIALIST Juan Vásquez MD ECG ORDERABLES Performing Organization Address City/State/ZIP Code Phon e Number RADIOLOGY RESULTS XR Chest 1 View (09/28/2018 11:21 AM CUSTOMS COMPLIANCE SPECIALIST) Anatomical Region Laterality Modality Chest Digital Radiography Specimen (Source) Anatomical Location Collection Method / Collectio n Time Received Time / Laterality Volume Impressions 09/28/2018 1:09 PM CUSTOMS COMPLIANCE SPECIALIST IMPRESSION: Heart size similar to prior. The thoracic aorta is elongated. No airspace consolidation or pneumothorax. There appears to be a small right pleural effusion. ELAINA HUNTLEY MD Narrative 09/28/2018 1:09 PM CUSTOMS COMPLIANCE SPECIALIST CHEST ONE VIEW ??09/28/2018 11:21 AM HISTORY: [...] ORDER BRAYDEN Blood component (09/28/2018 11:11 AM CUSTOMS COMPLIANCE SPECIALIST) [facility] Method Time Signature Unit Number [id number] 09/28/2018 [facility] 1:21 PM [facility] Blood Red Blood 09/28/2018 [facility] Component Cells 1:21 PM [facility] HOSPITAL Reduced Division 00 09/28/2018 [facility] Number 1:21 PM [facility] Status of No longer 10/02/2018 [facility] Unit available 3:00 AM [facility] 10/02/2018 HOSPITAL 0300 Blood Product [id number] 09/28/2018 [facility] Code 1:21 PM CUSTOMS COMPLIANCE SPECIALIST [facility] Unit Status [facility] Specimen Anatomical Collection Method Collection Time Receive d Time (Source) Location / / Volume Laterality 09/28/2018 11:11 09/28/2018 AM CUSTOMS COMPLIANCE SPECIALIST 11:44 AM CUSTOMS COMPLIANCE SPECIALIST Juan Vásquez MD LABORATORY Performing Organization Address City/State/ZIP Code Phon e Number M [facility] [address] [place], [place] [address] [facility] [address] [address], [facility] [address], [place] [address], [facility] [phone] Blood component (09/28/2018 11:11 AM CUSTOMS COMPLIANCE SPECIALIST) [facility] gist Method Time Signature Unit Number [id number] 09/28/2018 [facility] 1:21 PM [facility] Blood Red Blood 09/28/2018 [facility] Component Cells 1:21 PM [facility] Reduced Division 00 09/28/2018 [facility] Number 1:21 PM [facility] Status of No longer 10/02/2018 [facility] Unit available 3:00 AM [facility] 10/02/2018 HOSPITAL 0300 Blood Product [id number] 09/28/2018 [facility] Code 1:21 PM [facility] Unit Status [facility] Specimen Anatomical Collection Method Collection Time Receive d Time (Source) Location / / Volume Laterality 09/28/2018 11:11 09/28/2018 AM CUSTOMS COMPLIANCE SPECIALIST 11:44 AM CUSTOMS COMPLIANCE SPECIALIST Juan Vásquez MD LABORATORY Performing Organization Address City/State/ZIP Code Phon e Number M [facility] [address] [place], [place] [address] [facility] [address] [address], [facility] [address], [place] [address], [facility] [phone] Potassium (09/28/2018 11:11 AM CUSTOMS COMPLIANCE SPECIALIST) athologist Signature Potassium 4.0 3.4 - 5.3 09/28/2018 [place] mmol/L 12:22 PM [facility] Specimen Anatomical Collection Method Collection Time Receive d Time (Source) Location / / Volume Laterality Blood specimen 09/28/2018 11:11 8 (specimen) AM CUSTOMS COMPLIANCE SPECIALIST 11:43 AM CUSTOMS COMPLIANCE SPECIALIST Ramiro Card MD LAB - BLOOD ORDERABLES Performing Organization Address City/State/ZIP Code Phon e Number M [facility] [address] [place] [address] [facility] [address] [place] [address], [place] [phone] Lipid panel (09/28/2018 11:11 AM CUSTOMS COMPLIANCE SPECIALIST) Analysis Performed At Patho logist Time Signature Cholesterol 143 <200 mg/dL 09/28/2018 [place] 12:22 PM [facility] Triglycerides 115 <150 mg/dL 09/28/2018 [facility] 12:24 PM [facility] HDL Cholesterol 68 >39 mg/dL 09/28/2018 [facility] 12:24 PM [facility] LDL Cholesterol 52 <100 mg/dL 09/28/2018 [facility] Calculated 12:24 PM [facility] Comment: Desirable: <100 mg/dl Non HDL Cholesterol 75 <130 mg/dL 09/28/2018 12:24 PM [facility] Specimen Anatomical Collection Method Collection Time Receive d Time (Source) Location / / Volume Laterality Blood specimen 09/28/2018 11:11 8 (specimen) AM CUSTOMS COMPLIANCE SPECIALIST 11:43 AM CUSTOMS COMPLIANCE SPECIALIST Juan Vásquez MD LAB - BLOOD ORDERABLES Performing Organization Address City/State/ZIP Code Phon e Number M [facility] [address] [place] [address] [facility] [address] [place] [address], [place] [phone] (ABNORMAL) ABO/Rh type and screen (09/28/2018 11:11 AM CUSTOMS COMPLIANCE SPECIALIST) Component Value Ref Test Analysis Performed At Patholo gist Range Method Time Signature Units Ordered 2 09/28/2018 [facility] 11:54 AM [facility] ABO O 09/28/2018 [facility] 12:28 PM [facility] RH(D) Pos [facility] Antibody Screen Pos (A) 09/28/2018 [facility] 12:28 PM [facility] Test Valid Only [place] 09/28/2018 [facility] At [facility] 11:47 AM [facility] Specimen Expires 10/01/2018 09/28/2018 [facility] 11:47 AM [facility] Crossmatch Red Blood Cells 09/28/2018 [facility] 11:54 AM [facility] Blood Bank Delay in availability of Red Blood Cells called to 09/28/2018 [facility] Comment Esme in Preop at 1228 re 12:37 PM [facility] Antibody ANTI-Rosa 09/28/2018 [facility] Identification 1:26 PM [facility] Antigen Type Rosa Negative 09/28/2018 [facility] 1:26 PM [facility] Specimen Anatomical Collection Method Collection Time Receive d Time (Source) Location / / Volume Laterality Blood specimen 09/28/2018 11:11 8 (specimen) AM CUSTOMS COMPLIANCE SPECIALIST 11:44 AM CUSTOMS COMPLIANCE SPECIALIST Juan Vásquez MD LAB - BLOOD BANK TEST ORDER Performing Organization Address City/State/ZIP Code Phon e Number M [facility] [address] [address] [phone] [facility] [address] [address], [facility] [phone] (ABNORMAL) Hemoglobin A1c (09/28/2018 11:11 AM CUSTOMS COMPLIANCE SPECIALIST) P athologist Signature Hemoglobin A1C 5.7 (H) 0 - 5.6 % 09/28/2018 [facility] 12:08 PM [facility] Comment: Normal <5.7% Prediabetes 5.7-6.4% ??Diab etes 6.5% or higher - adopted from ADA consensus guidelines. Specimen Anatomical Collection Method Collection Time Receive d Time (Source) Location / / Volume Laterality Blood specimen 09/28/2018 11:11 8 (specimen) AM CUSTOMS COMPLIANCE SPECIALIST 11:43 AM CUSTOMS COMPLIANCE SPECIALIST Juan Vásquez MD LAB - BLOOD ORDERABLES Performing Organization Address City/State/ZIP Code Phon e Number M [facility] [address] [address] [phone] [facility] [address] [address], [place] [phone] (ABNORMAL) Creatinine (09/28/2018 11:11 AM CUSTOMS COMPLIANCE SPECIALIST) P athologist Signature Creatinine 1.46 (H) 0.66 - 09/28/2018 [place] 1.25 mg/dL 12:22 PM [facility] GFR Estimate 47 (L) >60 09/28/2018 [place] mL/min/1.7 12:[address] Comment: Non GFR Calc GFR Estimate If 57 (L) >60 mL/min/1.7m2 09/28/2018 12:[address] [facility] Comment: GFR Calc Specimen Anatomical Collection Method Collection Time Receive d Time (Source) Location / / Volume Laterality Blood specimen 09/28/2018 11:11 8 (specimen) AM CUSTOMS COMPLIANCE SPECIALIST 11:43 AM CUSTOMS COMPLIANCE SPECIALIST Juan Vásquez MD LAB - BLOOD ORDERABLES Performing Organization Address City/State/ZIP Code Phon e Number Jami [facility] [address] [address] [facility] [address] [address], [place] [phone] LAB RESULT - HIM SCAN (09/24/2018 12:00 AM CUSTOMS COMPLIANCE SPECIALIST) Specimen (Source) Anatomical Location Collection Method / Collectio n Time Received Time / Laterality Volume 09/24/2018 Narrative This result has an attachment that is no t available. Provider Outside NON-BEAKER LAB TESTING EKG CARDIAC - HIM SCAN (09/24/2018 12:00 AM CUSTOMS COMPLIANCE SPECIALIST) Specimen (Source) Anatomical Location Collection Method / [...] (TYLENOL) tablet 975 Given 09/29/2018 5:41 AM CUSTOMS COMPLIANCE SPECIALIST 975 mg mg 975 mg, Oral, EVERY 8 HOURS, First dose on Thu09/28/18 at 2200, For 3 days, Do not use if patient has an active opioid/acetaminophen combined analgesic product ordered for pain. Maximum acetaminophen dose from all sources = 75 mg/kg/day not to exceed 4 grams/day., Post-procedure Given 09/28/2018 9:50 PM CUSTOMS COMPLIANCE SPECIALIST 975 mg atorvastatin (LIPITOR) tablet 40 mg Given 09/28/2018 9:50 PM CUSTOMS COMPLIANCE SPECIALIST 40 mg 40 mg, Oral, EVERY EVENING, First dose on Thu09/28/18 at 2000 heparin 10,000 units in 1000 mL 0.9% Given 09/28/2018 1:37 PM CS T 1,000 mLs sodium chloride PRN, Starting on Thu09/28/18 at 1335, Intra-procedure Given 09/28/2018 1:36 PM CUSTOMS COMPLIANCE SPECIALIST 1,000 mLs Given 09/28/2018 1:35 PM CUSTOMS COMPLIANCE SPECIALIST 1,000 mLs lactated ringers infusion New Bag 09/29/2018 2:48 AM CUSTOMS COMPLIANCE SPECIALIST 125 mL/hr at 125 mL/hr, Intravenous, CONTINUOUS, NOT for patient on renal dialysis. Saline lock after 1 liter if taking PO fluids., Post-procedure, Starting on Thu09/28/18 at 1800, Until Thu09/29/18 at 1753 Rate/Dose Verify 09/29/2018 12:39 AM CUSTOMS COMPLIANCE SPECIALIST 125 mL/hr New Bag 09/28/2018 6:31 PM CUSTOMS COMPLIANCE SPECIALIST 125 mL/hr lisinopril (PRINIVIL/ZESTRIL) tablet 5 m g Given 09/29/2018 8:21 AM CUSTOMS COMPLIANCE SPECIALIST 5 mg 5 mg, Oral, 2 TIMES DAILY, First dose on Thu09/28/18 at 2100 Given 09/28/2018 9:52 PM CUSTOMS COMPLIANCE SPECIALIST 5 mg melatonin tablet 10 mg Given 09/29/2018 2:48 AM CUSTOMS COMPLIANCE SPECIALIST 10 mg 10 mg, Oral, AT BEDTIME PRN, sleep, Starting on Thu09/29/18 at 0044 metoprolol tartrate (LOPRESSOR) tablet 5 0 mg Given 09/29/2018 8:21 AM CUSTOMS COMPLIANCE SPECIALIST 50 mg 50 mg, Oral, 2 TIMES DAILY, First dose on Thu09/28/18 at 2100 Given 09/28/2018 9:50 PM CUSTOMS COMPLIANCE SPECIALIST 50 mg oxyCODONE (ROXICODONE) tablet 5 mg Given 09/28/2018 10:49 PM CUSTOMS COMPLIANCE SPECIALIST 5 mg 5 mg, Oral, EVERY 3 HOURS PRN, other, pain control or improvement in physical function. Hold dose for analgesic side effects., Starting on Thu09/28/18 at 1751, Notify provider to assess for uncontrolled pain or analgesic side effects. Hold while on EVP [employer] or with regular IV opioid dosing. Maximum total is 40 mg in 24 hours., Post-procedure sodium chloride (PF) 0.9% PF flush 3 mL Given 09/28/2018 9:58 PM CUSTOMS COMPLIANCE SPECIALIST 3 mLs 3 mL, Intracatheter, EVERY 8 HOURS, First dose on Thu09/28/18 at 2200, And Q1H PRN, to lock peripheral IV dormant line., Post-procedure terazosin (HYTRIN) capsule 5 mg Given 09/28/2018 10:49 PM CUSTOMS COMPLIANCE SPECIALIST 5 mg 5 mg, Oral, AT BEDTIME, First dose on Thu09/28/18 at 2200 documented in this encounter Active and Recently Administered Medications Times are shown in CUSTOMS COMPLIANCE SPECIALIST. Scheduled Medication Order 09/27/2018 09/28/2018 09/29/2018 acetaminophen [...] 121 6 (New Bag - Provider: Isis Rivera RN)1319 (Anesthesia Volume Adjustment - Provider: Mattie Marmolejo APRN TACK COVERER)1432 (Anesthesia Volume Adjustment - Provider: Mattie Marmolejo APRN TACK COVERER) at 25 mL/hr, Intravenous, CONTINUOUS, IF patient [...] response., Post-procedure oxyCODONE (ROXICODONE) tablet 5 mg 8500 (Given - Provider: Ira South, JOSE) 5 mg, Oral, EVERY 3 HOURS PRN, other, pa in control or improvement in physical function. Hold dose for analgesic side effects., Starting Thu09/28/18 at 1751, Notify provider to assess for uncontrolled p ain or analgesic side effects. Hold whil e on EVP [employer]ER or with regular IV opioid dosing. Maximum total is 40 mg in 24 hours., Post-procedure sodium chloride (PF) 0.9% PF flush 3 mL 3 mL, Intracatheter, EVERY 1 HOUR PRN, l ine flush, for peripheral IV flush post IV meds, Starting Thu09/28/18 at 1751, Post-procedure documented in this encounter Care Teams Elevator Installer Relationship Specialty Start Date End Date Clinic, [facility] PCP - General 05/12/[address] [place] [id number] documented as of this encounter
--- OUTSIDE RECORDS SUMMARY | 2022-05-30 08:45 | XMS_ITS | Encounter Summary ---
:1940 Author Organization [place] Address [facility] [place] [address] Care Team Providers Name Role Phone Clinic, [facility] Primary Care Provider [phone] Reason for Visit Reason Onset Date Comments Medication Question 05/24/2018 Encounter Details Date Type Department Care Team Description 05/24/2018 Telephone [facility] Juan Lewis on Question Vascular Clinic Félix Nava MD [address] [place] [address] [address] [place] [address] (Wo rk) Social History Tobacco Use Types [...] Additional comments: Please call Raquel his daughter [phone] Phone number to reach patient: Home number on file [phone] (home) Best Time: anytime Can we leave a detailed message on this number? YES Serena Almaguer MA documented in this encounter Plan of Treatment Not on filedocumented as of this encounter Visit Diagnoses Not on filedocumented in this encounter Care Teams Review Scheduling Coordinator Relationship Specialty Start Date End Date Clinic, [facility] PCP - General 05/12/[address] [place] [address] documented as of this encounter
--- OUTSIDE RECORDS SUMMARY | 2022-05-30 08:45 | XMS_ITS | Encounter Summary ---
:1940 Author Organization [place] Address [facility] [place] [address] Care Team Providers Name Role Phone Clinic, [facility] Primary Care Provider [phone] Reason for Visit Reason Onset Date Comments Clinic Care Coordination - Follow-up 10/01/2018 Encounter Details Date Type Department Care Team Description 10/01/2018 Telephone [facility] C are Coordination Vascular Clinic Félix Nava MD - Follow-up [address] [place] [address] [place] [address] [phone] Social History Tobacco Use Types Packs/Day Years [...] for any further questions. SHASTA Winkler, RN OFFICER Telephone Encounter - Sondra Johnson RN - [...] appointment with Dr. Lewis. SHASTA Winkler, RN OFFICER Telephone Encounter - Sondra Johnson RN - 10/01/2018 1:[address] Lewis's request, contact pt's daughter Raquel with an update on care plan. Raquel updated that Dr. Lewis will contact her on Thursday with a new plan for her dad. Raquel was in agreement with this plan. SHASTA Winkler, RN OFFICER documented in this encounter Plan of Treatment Not on filedocumented as of this encounter Visit Diagnoses Not on filedocumented in this encounter Care Teams Hospice Registered Nurse Relationship Specialty Start Date End Date Kehinde Portillofield PCP - General 05/12/[address] [place] [id number] documented as of this encounter
--- OUTSIDE RECORDS SUMMARY | 2022-05-30 08:45 | XMS_ITS | Encounter Summary ---
:1940 Author Organization [place] Address [facility] [place] [address] Care Team Providers Name Role Phone [facility], [facility] Primary Care Provider [phone] Reason for Visit Reason Comments RECHECK pt would like to discuss Encounter Details Date Type Department Care Team Description 07/01/2018 Office Visit [facility] Juan Lewis aortic Surgery Clinic MD Elijah aneurysm (AAA) without Clarita [address] rupture (H) (Primary [address]) [address] [place] [address] [place], [place] [phone] [address] (Work) [phone] Social History Tobacco Use Types Packs/Day Years [...] Primary documented in this encounter Care Teams Community Health Representative Relationship Specialty Start Date End Date [facility] PCP - General 05/12/[address] [place] [address] documented as of this encounter
--- OUTSIDE RECORDS SUMMARY | 2022-05-30 08:45 | XMS_ITS | Encounter Summary ---
:1940 Author Organization [place] Address [address] [place] [address] Care Team Providers Name Role Phone Clinic, [facility] Primary Care Provider [phone] Reason for Referral Diagnostic Imaging CT Scan - Closed Specialty Diagnoses / Procedures Referred By Contact Refer red To Contact Diagnoses Abdominal aortic aneurysm (H) Juan Lewis MD Procedures CTA Abdomen Pelvis with Contrast [address] [place] [address] Referral ID Status Reason Start Date Expiration Date Visits Requ ested Visits Authorized [id number] Closed 06/03/2018 06/03/2019 1 1 Reason for Visit Diagnostic Imaging CT Scan - Closed Specialty Diagnoses / Procedures Referred By Contact Refer red To Contact Diagnoses Abdominal aortic aneurysm (H) Juan Lewis MD Procedures CTA Abdomen Pelvis with Contrast [address] [place] [address] Referral ID Status Reason Start Date Expiration Date Visits Requ ested Visits Authorized [id number] Closed 06/03/2018 06/03/2019 1 1 Encounter Details Date Type Department Care Team Description 06/07/2018 Hospital Encounter [facility] Juan Lewis Ab dominal aortic [facility] MD Elijah aneurysm (H) [address] [place] [address] [id number] [place] [address] [phone] Social History Tobacco Use Types Packs/Day Years [...] dose documented in this encounter Care Teams Automatic Lehr Operator Relationship Specialty Start Date End Date Kehinde Portillo PCP - General 05/12/[address] [place] [address] documented as of this encounter
--- OUTSIDE RECORDS SUMMARY | 2022-05-30 08:45 | XMS_ITS | Encounter Summary ---
:1940 Author Organization [place] Address [address] [facility] [address] Care Team Providers Name Role Phone Clinic, [facility] Primary Care Provider [phone] Reason for Visit Auth/Cert Specialty Diagnoses / Procedures Referred By Contact Refer red To Contact Surgery Diagnoses ABDOMINAL AORTIC ANEURYSM Sh Periop Services Procedures ENDOVASCULAR REPAIR ANEURYSM ABDOMINAL AORTA [address] [place] [address] Phone: Referral ID Status Reason Start Date Expiration Date Visits Requ ested Visits Authorized [id number] 1 1 Encounter Details Date Type Department Care Team Description 09/28/2018 Anesthesia Event M [facility] Marylou Asher MD [facility] [address] [place] [address] [id number] [facility] Mattie Monahan, CAGE TENDER VETERANS REHABILITATION COUNSELOR [address] [place] [phone] [place] [...] 1506 An Stop Electronically s igned by Mtatie Marmolejo on September 28, 2018 3:06 PM [...] 09/28/18 1 506 by Ventilation: Easy; Ease Mattie Marmolejo Angela ts, Mattie Farrell, of Intubation: Easy; CAGE TENDER VETERANS REHABILITATION COUNSELOR CAGE TENDER VETERANS REHABILITATION COUNSELOR Airway Size: 8; Cuffed; Oral; Blade Type: Glidescope; Blade Size: 4; Place by: EA VETERANS REHABILITATION COUNSELOR; Insertion Attempts: 1; Secured at (cm)to lip: 23 cm; Breath Sounds: Equal, clear and bilateral; Dentition: Intact, Unchanged; Grade View of Cords: 1; Airway Adjuncts: Lawrence scope Urethral Catheter 09/28/18; 1315; No; 09/28/18 1315 by 09/28/18 1449 by Other (Comment) Georgette Umanzro, RN Georgette Umanzor, RN (surgeon ordered for [...] Asher MD September 28, 2018 3:11 PM RED CAR GUARD AND DRIVER Anesthesia Procedure Notes - Ling Asher MD - 09/28/2018 3:10 PM ARMORED CAR GUARD AND DRIVER Associated Order(s): A Line Catheter Placement ARTERIAL [...] Yes IBP within 10% of NIBP: Yes RED CAR GUARD AND DRIVER Anesthesia Preprocedure Evaluation - Ling Asher MD [...] alternatives discussed with: Patient.. Ling Asher MD RED CAR GUARD AND DRIVER documented in this encounter Miscellaneous Notes Anesthesia [...] APRN CRNA September 28, 2018 3:06 PM RED CAR GUARD AND DRIVER documented in this encounter Plan of Treatment Not on filedocumented as of this encounter Procedures Procedure Name Priority Date/Time Associated Diagnosis Comme nts ANE A LINE CATHETER Routine 09/28/2018 3:10 PM ARMORED CAR GUARD AND DRIVER PLACEMENT Procedure Note - Ritu Asher MD [...] (CLEOCIN) infusion 900 Given 09/28/2018 1:18 PM ARMORED CAR GUARD AND DRIVER 900 mg mg Routine, 900 mg, Intravenous, PRE-OP/PRE-PROCEDURE, Starting on Thu09/28/18 at 1101, For 1 dose, Give first dose within 1 hour PRIOR to incision., Indications: Perioperative Pharmacoprophylaxis, Pre-procedure dexmedetomidine (PRECEDEX) 4 mcg/mL bolu s Bolus 09/28/2018 2:19 PM ARMORED CAR GUARD AND DRIVER 8 mcg CONTINUOUS PRN, Starting on Thu09/28/18 at 1216, Anesthesia Intra-op Bolus 09/28/2018 1:12 PM ARMORED CAR GUARD AND DRIVER 12 mcg Bolus 09/28/2018 1:02 PM ARMORED CAR GUARD AND DRIVER 8 mcg ePHEDrine injection Given 09/28/2018 1:57 PM ARMORED CAR GUARD AND DRIVER 5 mg PRN, Starting on Thu09/28/18 at 1345, Anesthesia Intra-op Given 09/28/2018 1:49 PM ARMORED CAR GUARD AND DRIVER 5 mg Given 09/28/2018 1:45 PM ARMORED CAR GUARD AND DRIVER 5 mg fentaNYL (PF) (SUBLIMAZE) injection Given 09/28/2018 1:34 PM ARMORED CAR GUARD AND DRIVER 50 mcg PRN, Administer over 3-5 Minutes, Starting on Thu09/28/18 at 1302, Anesthesia Intra-op Given 09/28/2018 1:02 PM ARMORED CAR GUARD AND DRIVER 50 mcg lactated ringers infusion New Bag 09/28/2018 1:11 PM ARMORED CAR GUARD AND DRIVER CONTINUOUS PRN, Anesthesia Intra-op, Starting on Thu09/28/18 at 1311, Until Thu09/28/18 at 1506 lidocaine 2% injection (MDV) Given 09/28/2018 1:02 PM ARMORED CAR GUARD AND DRIVER 100 mg PRN, Starting on Thu09/28/18 at 1302, Anesthesia Intra-op phenylephrine 0.2 mg/mL Rate/Dose Change 09/28/2018 2:17 0.1 mcg/kg /min 2.54 mL/hr (mcg/kg/min) drip PM ARMORED CAR GUARD AND DRIVER CONTINUOUS PRN, Starting on Thu09/28/18 at 1406, Anesthesia Intra-op Rate/Dose Change 09/28/2018 2:12 PM ARMORED CAR GUARD AND DRIVER 0.15 mcg/kg/min 3.82 mL/hr New Bag 09/28/2018 2:06 PM ARMORED CAR GUARD AND DRIVER 0.25 mcg/kg/min 6.36 mL/hr propofol (DIPRIVAN) infusion New Bag 09/28/2018 1:11 PM 35 mcg/kg/min 17.8 mL/hr Intravenous, CONTINUOUS PRN, ARMORED CAR GUARD AND DRIVER Starting on Thu09/28/18 at 1311, Anesthesia Intra-op propofol (DIPRIVAN) injection 10 mg/mL v ial Given 09/28/2018 1:02 PM ARMORED CAR GUARD AND DRIVER 200 mg PRN, Starting on Thu09/28/18 at 1302, Anesthesia Intra-op rocuronium (ZEMURON) injection Given 09/28/2018 1:02 PM ARMORED CAR GUARD AND DRIVER 50 mg PRN, Starting on Thu09/28/18 at 1302, Anesthesia Intra-op vecuronium (NORCURON) injection Given 09/28/2018 2:17 PM ARMORED CAR GUARD AND DRIVER 2 mg PRN, Starting on Thu09/28/18 at 1334, Anesthesia Intra-op Given 09/28/2018 1:34 PM ARMORED CAR GUARD AND DRIVER 2 mg documented in this encounter Care Teams Bread Distributor Relationship Specialty Start Date End Date Clinic, Kehinde Portill[facility]ield PCP - General 05/12/17 [address] [phone] documented as of this encounter
--- OUTSIDE RECORDS SUMMARY | 2022-05-30 08:46 | XMS_ITS | Encounter Summary ---
:1940 Author Organization [place] Address [address] [place] [address] Care Team Providers Name Role Phone Clinic, [facility] Primary Care Provider [phone] Reason for Visit Reason Comments Transient Ischemic Attack Encounter Details Date Type Department Care Team Description 11/14/2017 - [facility] brittani Stauffer MD [facility] [address] [place] [address] Transient cerebral ischemia, unspecified type (Primary Dx); 11/15/2017 Anders Jamie Bryan MD [address] [place] [address] Weakness on right side of face; Dept Uncontrolled hypertension [address] [place] [address] Social History Tobacco Use Types [...] Comments Blood Pressure 157/73 11/15/2017 11:35 AM CAMPAIGN ASSISTANT Pulse 54 11/14/2017 11:13 PM CAMPAIGN ASSISTANT Temperature 35.8 ??C (96.5 ??F) 11/15/2017 11:35 AM CAMPAIGN ASSISTANT Respiratory Rate 18 11/15/2017 11:35 AM CAMPAIGN ASSISTANT Oxygen Saturation 97% 11/15/2017 11:35 AM CAMPAIGN ASSISTANT Inhaled Oxygen Concentration - - Weight 88.9 kg (196 lb) 11/15/2017 2:04 AM CAMPAIGN ASSISTANT Height 177.8 cm (5' 10) 11/15/2017 2:04 AM CAMPAIGN ASSISTANT Body Mass Index 28.12 11/15/2017 2:04 AM CAMPAIGN ASSISTANT documented in this encounter Discharge Summaries Luis Antonio Quintanilla MD - 11/15/2017 11:18 AM CST [facility] Discharge Summary Name: Speedy Hendricks Date of : 1940 Age: [age] year old Date of Discharge: 11/15/2017 Date of Admission: 11/14/2017 Primary Care Provider: Kehinde Portillo Gilbert Discharge Physician: Luis Antonio Quintanilla MD Discharging [...] with NOAC. I also spoke with his Sterile Technician (Dr. Wilson) who agreed with starting lisinopril. [...] 50 Minutes. Luis Antonio Quintanilla MD Pager: [phone] AIGN ASSISTANT documented in this encounter Medications at Time [...] placed in patient's chart. 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 Continues on 81mg aspirin and metoprolol 50mg bid. AC refused by patient/family due to enlarging AAA. -continue aspirin -continue metoprolol 50mg bid 4. Hx cardiac arrest: suspected due to mscontin buildup in setting of CKD. Hospitalized at [facility] 04/2017. Has been doing quite well since. 5. AAA: enlarging and up to 4.2cm when last checked. Due for repeat US next month. Father from AAA at age 61. 6. HTN: SBP elevated here initially to 185/99 now down to 140-150s in ED without intervention. 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 Lift room needed: No. Bariatric: No Insulation Worker Needed: No Isolation: No. Infection: Not Applicable. [...] Patient Report - Initial Complaint: Stroke. 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 Tests Performed: [...] chloride BOLUS (0 mLs Intravenous Stopped 11/14/17 4542) iopamidol (ISOVUE-370) solution 500 mL (120 mLs Intravenous Given 11/14/17 0148) Drips infusing: No For the majority of [...] hardware foot Thoracic surgery, right lung surgery [place] teeth extraction Family History: History reviewed. No [...] Screening for cardiovascular disease. Rate 58 bpm. W[place] interval 184 ms. QRS duration 82 ms. [...] focal stenosis of the left P2 segment GLEASON OPERATOR with a small trickle of contrast extending [...] Dr. Arriaga of the radiology service from [facility] regarding patient's presentation, findings, and plan of [...] and the provider's statements to me. [facility] EMERGENCY DEPARTMENT Damian Mark MD 11/15/17 0149 AIGN ASSISTANT documented in this encounter Miscellaneous Notes Plan [...] with: daughter OBSERVATION patient END time: 1210 AIGN ASSISTANT Plan of Care - Mitra Joshi OT - 11/15/2017 9:39 AM CST Problem: Patient Care Overview Goal: Plan of Care/Patient Progress Review OT: Orders received and chart reviewed. Discussed with treatment team including physical therapist. No Ip OT needs at this time. Will complete orders AIGN ASSISTANT Plan of Care - Brittany Alcantar, PT - 11/15/2017 9:23 AM CST Problem: Patient Care Overview Goal: Plan of Care/Patient Progress Review PT: Received orders for evaluation and treatment; per chart review and Obs team, no inpatient therapy needs at this time (issues have resolved). Will complete therapy orders. AIGN ASSISTANT Plan of Care - Ca Major RN - 11/15/2017 8:00 AM CST Problem: Patient Care Overview Goal: Plan of Care/Patient Progress Review PRIMARY DIAGNOSIS: TIA R/O OUTPATIENT/OBSERVATION GOALS TO BE MET BEFORE DISCHARGE: 1. Orthostatic performed: No 2. Diagnostic testing complete & at baseline neurologic testing: Yes 3. Cleared by consultants (if involved): No 4. Interpretation of cardiac rhythm per senior quality technician: SR 5. Tolerating adequate PO diet and medications: Yes 6. Return to near baseline physical activity or neurologic status: Yes Board Runner Nurse Safe discharge environment identified: Yes Barriers to discharge: Yes Entered by: Ca Major 11/15/2017 Please review provider order for any additional goals. Nurse to notify provider when observation goals have been met and patient is ready for discharge. VSS, up independent, A&Ox4, steady gait, denies dizziness, reports 5/10 headache, improved aftertylenol given resident care director, denies N/T, plan for MRI this AM, neuro consult, daughter at bedside, will continue to monitor and provide supportive cares. 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 Patient has been oriented to the observation room, bathroom and call light is in place. Discussed discharge goals and expectations with patient/family. AIGN ASSISTANT documented in this encounter Plan of Treatment Not on filedocumented as of this encounter Procedures Procedure Name Priority Date/Time Associated Comments Diagnosis MR BRAIN W/O & W Routine 11/15/2017 9:15 AM Resul ts for this CONTRAST CAMPAIGN ASSISTANT procedure are i n the results section. BASIC METABOLIC PANEL Routine 11/15/2017 6:37 AM Weakness on r ight Results for this CAMPAIGN ASSISTANT side of face procedure are i n the results section. EKG 12-LEAD, TRACING Routine 11/15/2017 2:08 AM R esults for this ONLY CAMPAIGN ASSISTANT procedure are i n the results section. CT HEAD W CONTRAST STAT 11/14/2017 11:58 Resul ts for this PM CAMPAIGN ASSISTANT procedure are i n the results section. CTA HEAD NECK W STAT 11/14/2017 11:53 Results for this CONTRAST PM CAMPAIGN ASSISTANT procedure are i n the results section. CT HEAD W/O CONTRAST STAT 11/14/2017 11:39 Res ults for this PM CAMPAIGN ASSISTANT procedure are i n the results section. CBC WITH PLATELETS & Routine 11/14/2017 11:29 Res ults for this DIFFERENTIAL PM CAMPAIGN ASSISTANT procedure are i n the results section. TROPONIN I Routine 11/14/2017 11:29 Results for this PM CAMPAIGN ASSISTANT procedure are i n the results section. INR Routine 11/14/2017 11:29 Results for this PM CAMPAIGN ASSISTANT procedure are i n the results section. PARTIAL THROMBOPLASTIN Routine 11/14/2017 11:29 R esults for this TIME PM CAMPAIGN ASSISTANT procedure are i n the results section. BASIC METABOLIC PANEL Routine 11/14/2017 11:29 Re sults for this PM CAMPAIGN ASSISTANT procedure are i n the results section. EKG 12-LEAD, TRACING STAT 11/14/2017 11:22 Res ults for this ONLY PM CAMPAIGN ASSISTANT procedure are i n the results section. documented in this encounter Results MRI Brain w & w/o contrast (11/15/2017 9:15 AM CAMPAIGN ASSISTANT) Anatomical Region Laterality Modality Head, SUBRAD MR NEURO, UMP MR NEURO, RAD MR Magnetic Resonance Specimen (Source) Anatomical Location Collection Method / Collectio n Time Received Time / Laterality Volume Impressions 11/15/2017 9:39 AM CAMPAIGN ASSISTANT IMPRESSION: ?? 1. No evidence of acute infarct, mass, h emorrhage, or herniation. 2. Moderate diffuse parenchymal volume l oss and white matter changes likely due to chronic microvascular isch emic disease without significant change since prior. KATIA DAVID MD Narrative 11/15/2017 9:39 AM CAMPAIGN ASSISTANT MRI BRAIN WITHOUT AND WITH CONTRAST ??11/15/2017 [...] distorted by artifact. No evidence of ac [place] intracranial hemorrhage. No mass effect or midline [...] distorted by artifact. No evidence of ac [place] intracranial hemorrhage. No mass effect or midline [...] (ABNORMAL) Basic metabolic panel (11/15/2017 6:37 AM CAMPAIGN ASSISTANT) Analysis Performed At Patho logist Time Signature Sodium 141 133 - 144 11/15/2017 [facility] mmol/L 7:04 AM [facility] Potassium 4.1 3.4 - 5.3 11/15/2017 [facility] mmol/L 7:04 AM [facility] Chloride 109 94 - 109 11/15/2017 [facility] mmol/L 7:04 AM [facility] Carbon Dioxide 25 20 - 32 11/15/2017 [facility] mmol/L 7:04 AM [facility] Anion Gap 7 3 - 14 11/15/2017 [facility] mmol/L 7:04 AM [facility] Glucose 105 (H) 70 - 99 11/15/2017 [facility] mg/dL 7:04 AM [facility] Urea Nitrogen 33 (H) 7 - 30 11/15/2017 [facility] mg/dL 7:04 AM [facility] Creatinine 1.51 (H) 0.66 - 11/15/2017 [facility] 1.25 mg/dL 7:04 AM [facility] GFR Estimate 45 (L) >60 11/15/2017 [facility] mL/min/1.7 7:[address] Comment: Non GFR Calc GFR Estimate If 55 (L) >60 mL/min/1.7m2 11/15/2017 7:04 [facility] Comment: GFR Calc Calcium 8.8 8.5 - 10.1 mg/dL 11/15/2017 7:04 AM [facility] Specimen Anatomical Collection Method Collection Time Receive d Time (Source) Location / / Volume Laterality Blood specimen 11/15/2017 6:37 AM 018 6:38 (specimen) CAMPAIGN ASSISTANT AM CAMPAIGN ASSISTANT Jamie Gates MD LAB - BLOOD ORDERABLES Performing Organization Address City/State/ZIP Code Phon e Number [facility] [address] [address] [facility] [address] [phone] EKG 12-lead, tracing only (11/15/2017 2:08 AM CAMPAIGN ASSISTANT) [facility] gist Method Time Signature Interpretation ECG Click View RADIOLOGY Image link RESULTS to view waveform and result Specimen (Source) Anatomical Collection Method Collection Time Re ceived Time Location / / Volume Laterality 11/15/2017 2:08 AM CAMPAIGN ASSISTANT Jamie Gates MD ECG ORDERABLES Performing Organization Address City/[facility]/ZIP Code Phon e Number RADIOLOGY RESULTS CT Head w Contrast (11/14/2017 11:58 PM CAMPAIGN ASSISTANT) Anatomical Region Laterality Modality Head, NEURO, SUBRAD CT NEURO, SUBRAD CT NEURO, UMP CT Computed Tomography NEURO, RAD CT Specimen (Source) Anatomical Location Collection Method / Collectio n Time Received Time / Laterality Volume Impressions 11/15/2017 8:18 AM CAMPAIGN ASSISTANT IMPRESSION: 1. Patent arteries in the neck [...] KATIA DAVID MD Narrative 11/15/2017 8:[address] ANGIOGRAM OF THE HEAD AND NECK [...] CTA Angiogram Head Neck (11/14/2017 11:53 PM CAMPAIGN ASSISTANT) Anatomical Region Laterality Modality Head, SUBRAD CT NEURO, SUBRAD CT NEURO, UMP CT NEURO, Computed Tomography RAD CT Specimen (Source) Anatomical Location Collection Method / Collectio n Time Received Time / Laterality Volume Impressions 11/15/2017 8:18 AM CAMPAIGN ASSISTANT IMPRESSION: 1. Patent arteries in the neck [...] KATIA DAVID MD Narrative 11/15/2017 8:[address] ANGIOGRAM OF THE HEAD AND NECK [...] CT Head w/o Contrast (11/14/2017 11:39 PM CAMPAIGN ASSISTANT) Anatomical Region Laterality Modality Head, SUBRAD CT NEURO, SUBRAD CT NEURO, UMP CT NEURO, Computed Tomography RAD CT Specimen (Source) Anatomical Location Collection Method / Collectio n Time Received Time / Laterality Volume Impressions 11/15/2017 8:18 AM CAMPAIGN ASSISTANT IMPRESSION: ?? 1. No evidence of acute intracranial hem orrhage, mass, or herniation. 2. There is generalized atrophy of the b rain. White matter changes are present in the cerebral hemispheres that are consistent with small vessel ischemic disease in this age angela ent. I agree with the overnight preliminary r eport by the radiologist. KATIA DAVID MD Narrative 11/15/2017 8:[address] SCAN OF THE HEAD WITHOUT CONTRAST [...] CT ORDERABLES Troponin I (11/14/2017 11:29 PM CAMPAIGN ASSISTANT) athologist Signature Troponin I ES <0.015 0.000 - 11/14/2017 [facility] 0.045 ug/L 11:53 PM [facility] Comment: The 99th percentile for upper reference range is 0.045 ug/L. ??Troponin values in the range of 0.045 - 0.120 ug/L may b e associated with risks of adverse clinical events. Specimen Anatomical Collection Method Collection Time Receive d Time (Source) Location / / Volume Laterality 11/14/2017 11:29 11/14/2017 PM CAMPAIGN ASSISTANT 11:31 PM CAMPAIGN ASSISTANT Damian Mark MD LAB - BLOOD ORDERABLES Performing Organization Address City/[facility]/ZIP [facility] Phon e [facility] [address] [place] [address] [place] [address] [address] [place] [address] 7, [facility] [phone] Partial thromboplastin time (11/14/2017 11:29 PM CAMPAIGN ASSISTANT) athologist Signature PTT 30 22 - 37 sec 11/14/2017 [facility] 11:45 PM CAMPAIGN ASSISTANT [facility] Specimen Anatomical Collection Method Collection Time Receive d Time (Source) Location / / Volume Laterality 11/14/2017 11:29 11/14/2017 PM CAMPAIGN ASSISTANT 11:31 PM CAMPAIGN ASSISTANT Damian Mark MD LAB - BLOOD ORDERABLES Performing Organization Address City/[facility]/ZIP [facility] Phon e Number [facility] [address], [place] [address] [place] [address] [address] [address] 7, [facility] [phone] INR (11/14/2017 11:29 PM CAMPAIGN ASSISTANT) athologist Signature INR 0.96 0.86 - 1.14 11/14/2017 [facility] 11:45 PM CAMPAIGN ASSISTANT HOSPITAL Specimen Anatomical Collection Method Collection Time Receive d Time (Source) Location / / Volume Laterality 11/14/2017 11:29 11/14/2017 PM CAMPAIGN ASSISTANT 11:31 PM CAMPAIGN ASSISTANT Damian Mark MD LAB - BLOOD ORDERABLES Performing Organization Address City/State/ZIP Code Phon e Number [place] [address] [address], [place] [address] [facility] [address] [place], [place] [address], [facility] [phone] (ABNORMAL) CBC with platelets differential (11/14/2017 11:29 PM [facility]) [facility] gist Method Time Signature WBC 6.1 4.0 - 11/14/2017 [facility] 11.0 11:[address] [facility] 10e9/L [facility] RBC Count 4.23 (L) 4.4 - 5.9 11/14/2017 [facility] 10e12/L 11:34 PM [facility] Hemoglobin 13.7 13.3 - 11/14/2017 [facility] 17.7 g/dL 11:34 PM [facility] Hematocrit 41.0 40.0 - 11/14/2017 [facility] 53.0 % 11:34 PM [facility] MCV 97 78 - 100 11/14/2017 [facility] fl 11:34 PM [facility] MCH 32.4 26.5 - 11/14/2017 [facility] 33.0 pg 11:34 [facility] MCHC 33.4 31.5 - 11/14/2017 [facility] 36.5 g/dL 11:34 [facility] RDW 12.9 10.0 - 11/14/2017 [facility] 15.0 % 11:34 PM [facility] Platelet Count 122 (L) 150 - 450 11/14/2017 [facility] 10e9/L 11:34 PM [facility] Diff Method Automated 11/14/2017 [facility] Method 11:34 PM [facility] % Neutrophils 57.3 % 11/14/2017 [facility] 11:34 PM [facility] % Lymphocytes 27.8 % 11/14/2017 [facility] 11:34 [facility] % Monocytes 11.3 % 11/14/2017 [facility] 11:34 [facility] % Eosinophils 3.1 % 11/14/2017 [facility] 11:34 PM [facility] % Basophils 0.3 % 11/14/2017 [facility] 11:34 PM [facility] % Immature 0.2 % 11/14/2017 [facility] Granulocytes 11:34 PM [facility] Nucleated RBCs 0 0 /100 11/14/2017 [facility] 11:34 PM [facility] Absolute 3.5 1.6 - 8.3 11/14/2017 [facility] Neutrophil 10e9/L 11:34 PM [facility] Absolute 1.7 0.8 - 5.3 11/14/2017 [facility] Lymphocytes 10e9/L 11:34 PM [facility] Absolute 0.7 0.0 - 1.3 11/14/2017 [facility] Monocytes 10e9/L 11:34 PM [facility] Absolute 0.2 0.0 - 0.7 11/14/2017 [facility] Eosinophils 10e9/L 11:34 PM [facility] Absolute 0.0 0.0 - 0.2 11/14/2017 [facility] Basophils 10e9/L 11:34 PM [facility] Abs Immature 0.0 0 - 0.4 11/14/2017 [facility] Granulocytes 10e9/L 11:34 PM [facility] Absolute 0.0 11/14/2017 [facility] Nucleated RBC 11:34 PM [facility] Specimen Anatomical Collection Method Collection Time Receive d Time (Source) Location / / Volume Laterality 11/14/2017 11:29 11/14/2017 PM CAMPAIGN ASSISTANT 11:31 PM CAMPAIGN ASSISTANT Damian Mark MD LAB - BLOOD ORDERABLES Performing Organization Address City/State/ZIP Code Phon e Number [place] [address] [address] [address] [facility] [address] [phone] (ABNORMAL) Basic metabolic panel (11/14/2017 11:29 PM CAMPAIGN ASSISTANT) Analysis Performed At Patho logist Time Signature Sodium 141 133 - 144 11/14/2017 [facility] mmol/L 11:53 PM [facility] Potassium 3.7 3.4 - 5.3 11/14/2017 [facility] mmol/L 11:53 PM [facility] Chloride 107 94 - 109 11/14/2017 [facility] mmol/L 11:53 PM [facility] Carbon Dioxide 26 20 - 32 11/14/2017 [facility] mmol/L 11:53 PM [facility] Anion Gap 8 3 - 14 11/14/2017 [place] mmol/L 11:53 PM [facility] Glucose 103 (H) 70 - 99 11/14/2017 [place] mg/dL 11:53 PM [facility] Urea Nitrogen 32 (H) 7 - 30 11/14/2017 [place] mg/dL 11:53 PM [facility] Creatinine 1.67 (H) 0.66 - 11/14/2017 [place] 1.25 mg/dL 11:53 PM [facility] GFR Estimate 40 (L) >60 11/14/2017 [place] mL/min/1.7 11:[address] Comment: Non GFR Calc GFR Estimate If 49 (L) >60 mL/min/1.7m2 11/14/2017 11:53 PM [facility] Comment: GFR Calc Calcium 8.9 8.5 - 10.1 mg/dL 11/14/2017 11:53 PM [facility] Specimen Anatomical Collection Method Collection Time Receive d Time (Source) Location / / Volume Laterality 11/14/2017 11:29 11/14/2017 PM CAMPAIGN ASSISTANT 11:31 PM CAMPAIGN ASSISTANT Damian Mark MD LAB - BLOOD ORDERABLES Performing Organization Address City/State/ZIP Code Phon e Number [place] [address] [phone] EKG 12 lead (11/14/2017 11:22 PM CAMPAIGN ASSISTANT) [facility] Method Time Signature Interpretation ECG Click View RADIOLOGY Image link RESULTS to view waveform and result Specimen (Source) Anatomical Collection Method Collection Time Re ceived Time Location / / Volume Laterality 11/14/2017 11:22 PM CAMPAIGN ASSISTANT Damian Mark MD ECG ORDERABLES Performing Organization Address City/State/ZIP [facility] Phon e Number RADIOLOGY RESULTS documented in [...] chloride BOLUS New Bag 11/14/2017 11:48 PM CAMPAIGN ASSISTANT 80 mLs Intravenous, 1,000 mL, ONCE, On 11/14/17 at 2330, For 1 dose acetaminophen (TYLENOL) tablet 1,000 mg Given 11/15/2017 1:11 AM CAMPAIGN ASSISTANT 1,000 mg 1,000 mg, Oral, ONCE, On 11/15/17 at 0054, For 1 dose, Maximum acetaminophen dose from all sources = 75 mg/kg/day not to exceed 4 gram acetaminophen (TYLENOL) tablet 650 mg Given 11/15/2017 6:11 AM CAMPAIGN ASSISTANT 650 mg 650 mg, Oral, EVERY 4 HOURS PRN, mild pain, Starting on 11/15/17 at 0204, Alternate ibuprofen (if ordered) with acetaminophen. Maximum acetaminophen dose from all sources = 75 mg/kg/day not to exceed 4 grams/day. gadobutrol (GADAVIST) injection 10 mL Given 11/15/2017 8:30 AM CAMPAIGN ASSISTANT 10 mLs 10 mL, Intravenous, ONCE, On 11/15/17 at 0805, For 1 dose, Supplied by, and administered by MRI. iopamidol (ISOVUE-370) solution 500 mL Given 11/14/2017 11:48 PM CAMPAIGN ASSISTANT 120 mLs 500 mL, Intravenous, ONCE, On 11/14/17 at 2330, For 1 dose lisinopril (PRINIVIL/ZESTRIL) tablet 5 m g 5 mg, Oral, DAILY, First dose on 11/15/17 at 1102, Hold for SBP < 100 LORazepam (ATIVAN) injection 0.5-1 mg Given 11/15/2017 8:20 AM CAMPAIGN ASSISTANT 0.5 mg 0.5-1 mg, Intravenous, ONCE, On [...] Recently Administered Medications Times are shown in CAMPAIGN ASSISTANT. Scheduled Medication Order 11/13/2017 11/14/2017 11/15/2017 0.9% [...] minutes.
documented in this encounter Care Teams Deputy Probation Officer Relationship Specialty Start Date End Date Bandar, Kehinde Portillofield PCP - General 05/12/[address] [place] [id number] documented as of this encounter
--- OUTSIDE RECORDS SUMMARY | 2022-05-30 08:46 | XMS_ITS | Encounter Summary ---
:1940 Author Organization [place] Address [facility] [place] [address] Care Team Providers Name Role Phone [facility], [facility] Primary Care Provider [phone] Reason for Referral - Closed Specialty Diagnoses / Procedures Referred By Contact Refer red To Contact Diagnoses Paroxysmal atrial fibrillation (H) Radha Galan MD Procedures Zio Patch Monitor [address] [place] [address] Referral ID Status Reason Start Date Expiration Date Visits Requ ested Visits Authorized [id number] Closed 11/25/2017 11/25/2018 1 1 ICAL EDUCATION ASSISTANT Reason for Visit Reason Comments Atrial Fib new Dx - Closed Specialty Diagnoses / Procedures Referred By Contact Refer red To Contact Diagnoses Paroxysmal atrial fibrillation (H) Radha Galan MD [address] [place] [address] Referral ID Status Reason Start Date Expiration Date Visits Requ ested Visits Authorized [id number] Closed 06/11/2017 06/11/2018 1 1 Encounter Details Date Type Department Care Team Description 11/11/2017 Office Visit [facility] Radha Galan [facility] Tram WELSH fibrillation (H) [address] [facility] [address] [place] [address] [place] [address] [phone] Social History Tobacco Use Types Packs/Day Years [...] Comments Blood Pressure 146/78 11/11/2017 8:56 AM CLINICAL EDUCATION ASSISTANT Pulse 54 11/11/2017 8:56 AM CLINICAL EDUCATION ASSISTANT Temperature - - Respiratory Rate - - Oxygen Saturation - - Inhaled Oxygen Concentration - - Weight 88 kg (194 lb) 11/11/2017 8:56 AM CLINICAL EDUCATION ASSISTANT Height 170.2 cm (5' 7.01) 11/11/2017 8:56 AM CLINICAL EDUCATION ASSISTANT Body Mass Index 30.38 11/11/2017 8:56 AM CLINICAL EDUCATION ASSISTANT documented in this encounter Progress Notes Radha Galan MD - 11/11/2017 10:26 AM CST [...] discharged on amiodarone and did see a diesel engine tester over at [facility] for followup. He was recommended to wear a 24-hour Holter monitoring which demonstrated no evidence of atrial tachyarrhythmias. The patient checked his blood pressure twice a day and noticed heart rate in the 50s. He is doing quite well otherwise. Denies any shortness of breath, orthopnea, PND. His blood pressureseemed to be difficult to control and has seen a office assistant for that as well as for [...] to see us in a year in [facility] to his convenience, as the patient does live in that area. We will notify the patient regarding results of the Zio Patch monitor and have him follow up with you or my partners in a year from now. RADHA GALAN MD MT: SEMAJ Name: SPEEDY HENDRICKS Account: [id number] : 1940 Service Date: 11/11/2017 Document: [id number] ICAL EDUCATION ASSISTANT Radha Galan MD - 11/11/2017 8:45 AM CST HPI and Plan: See dictation [id number] Orders Placed This Encounter Procedures ??? EKG [...] Galan, MD [address] [place] [address] ICAL EDUCATION ASSISTANT documented in this encounter Plan of Treatment Not on filedocumented as of this encounter Procedures Procedure Name Priority Date/Time Associated Diagnosis Comme nts EKG 12-LEAD Routine 11/12/2017 10:13 Paroxysmal atrial Result s for this COMPLETE W/READ - AM CLINICAL EDUCATION ASSISTANT fibrillation (H) proced ure are in CLINICS the results section. documented in this encounter Results Zio Patch Monitor (11/22/2017) Narrative [facility] - 11/22/[address] [facility] [address] [facility] [address] [facility] [address] 11/17/2017 Patient: ??Speedy Hendricks Chart: [id number] : ??1940 Age: ??77 year old Sex: ??male Procedure: ??ZioPatch Monitor. Manager Solution performing hook-up: ??Kiarra Rubalcava Radha Gamboa MD CV CARDIAC SERVICES ORDERABL ES Performing Organization Address City/State/ZIP Code Phon e Number [facility] EKG 12-lead complete w/read - Clinics (performed today) (11/12/2017 10:13 AM CLINICAL EDUCATION ASSISTANT) Narrative This result has an attachment that is no t available. Radha Gamboa MD ECG ORDERABLES documented in this encounter Visit Diagnoses Diagnosis Paroxysmal atrial fibrillation (H) Atrial fibrillation Paroxysmal atrial fibrillation (H) Atrial fibrillation documented in this encounter Care Teams District Resource Officer Relationship Specialty Start Date End Date [facility], [facility] PCP - General 05/12/[address] [place] [address] documented as of this encounter
--- OUTSIDE RECORDS SUMMARY | 2022-05-30 08:46 | XMS_ITS | Encounter Summary ---
:1940 Author Organization [place] Address [address] [place] [address] Care Team Providers Name Role Phone Clinic, [facility] Primary Care Provider [phone] Reason for Visit Reason Onset Date Comments Medication Question 05/13/2017 meds Encounter Details Date Type Department Care Team Description 05/13/2017 Telephone [facility] Heart Abimbola Brown M edication Question Clinic Tram GARCIA (meds) [address] [facility] [address] [place] [address] Social History Tobacco Use Types Packs/Day [...] and LM for her to call this senior writer back. JNelsonRN documented in this encounter Plan of Treatment Not on filedocumented as of this encounter Visit Diagnoses Not on filedocumented in this encounter Care Teams Director Ehs Relationship Specialty Start Date End Date Clinic, [facility] PCP - General 05/12/17 [address] [place] [address] documented as of this encounter
--- OUTSIDE RECORDS SUMMARY | 2022-05-30 08:46 | XMS_ITS | Encounter Summary ---
:1940 Author Organization [place] Address [address] [place] [address] Care Team Providers Name Role Phone Clinic, [facility] Primary Care Provider [phone] Reason for Visit Reason Onset Date Comments Previsit 11/10/[address] Fatuma ng--visit 11/11/17 Encounter Details Date Type Department Care Team Description 11/10/2017 Telephone [facility] Heart Ebony Arnold, Previsit (New patient Clinic [place] RN for Dr Lugo--visit [address] [facility] 11/11/17) [address] [address] Social History Tobacco Use Types [...] reflect what patient is taking. JOSE Shahid EAR MEDICAL TECH documented in this encounter Plan of Treatment Not on filedocumented as of this encounter Visit Diagnoses Not on filedocumented in this encounter Care Teams Statistical Financial Analyst Relationship Specialty Start Date End Date Clinic, [facility] PCP - General 05/12/[address] [place] [address] documented as of this encounter
--- OUTSIDE RECORDS SUMMARY | 2022-05-30 08:46 | XMS_ITS | Encounter Summary ---
:1940 Author Organization [place] Address [address] [place] [address] Care Team Providers Name Role Phone Clinic, [facility] Primary Care Provider [phone] Reason for Visit Reason Onset Date Comments Referral 05/14/2017 MTM Encounter Details Date Type Department Care Team Description 05/14/2017 Telephone [facility], [place] ([place]) Project [address] [address] [phone] (Wo rk) Social History Tobacco Use Types [...] this time because they are not a [facility] patient, will route to MTM Pharmacist/Provider as an FYI. Thank you for the referral. Juanita Herndon MTM Coordinator documented in this encounter Plan of Treatment Not on filedocumented as of this encounter Visit Diagnoses Not on filedocumented in this encounter Care Teams Chro Relationship Specialty Start Date End Date [facility], [facility] PCP - General 05/12/[address] [place] [address] documented as of this encounter
--- OUTSIDE RECORDS SUMMARY | 2022-05-30 08:46 | XMS_ITS | Encounter Summary ---
:1940 Author Organization [facility] Address [address] [place] [id number] Care Team Providers Name Role Phone Celina Coley Primary Care Provider [facility] [place] Primary [facility] Provider [phone] Reason for Referral Specialty Diagnoses / Procedures Referred By Contact Tam parson To Contact Sanjuanita Ponce RN Referral ID Status Reason Start Date Expiration Date Visits Requ ested Visits Authorized Specialty Diagnoses / Procedures Referred By Contact Tam parson To Contact Adrian Pleitez MD [address] [place] [id number] Referral ID Status Reason Start Date Expiration Date Visits Requ ested Visits Authorized Specialty Diagnoses / Procedures Referred By Contact Tam parson To Contact Adrian Pleitez MD [address] [facility] [address] [place] [address] Referral ID Status Reason Start Date Expiration Date Visits Requ ested Visits Authorized Specialty Diagnoses / Procedures Referred By Contact Tam parson To Contact Adrian Pleitez MD [address] [place] [address] Referral ID Status Reason Start Date Expiration Date Visits Requ ested Visits Authorized ome Health Therapies & Aides Specialty Diagnoses / Procedures Referred By Contact Refer red To Contact Adrian Pleitez MD [address] [place] [address] Referral ID Status Reason Start Date Expiration Date Visits Requ ested Visits Authorized - Closed Specialty Diagnoses / Procedures Referred By Contact Refer red To Contact Diagnoses Paroxysmal atrial fibrillation (H) Taran Lugo MD [address] [place] [address] Referral ID Status Reason Start Date Expiration Date Visits Requ ested Visits Authorized [id number] Closed 06/11/2017 06/11/2018 1 1 Reason for [...] Care [address] [place] [address] Phone: Referral ID Status Reason Start Date Expiration Date Visits Requ ested Visits Authorized [id number] 1 1 Encounter Details Date Type Department Care Team Description 05/05/2017 [facility] Leesa Martinez MD [facility] [address] [id number] Opioid overdose, accidental or unintenti onal, initial encounter (Primary Dx); - Encounter Miladys Phillips MD [address] [id number] Aspiration pneumonia, unspecified aspira tion pneumonia type, unspecified laterality, unspecified part of lung (H); 05/12/2017 [facility] Stephany Farley MD [address] [place] [address] Encephalopathy; [address] Paroxysmal atrial fibrillati on (H); [place] Hyperlipidemia LDL goal <70; [id number] Acute left-sided low back pa in without sciatica; [phone] Unresponsivenes s Social History Tobacco Use Types [...] Pleitez MD - 05/12/2017 3:12 PM CDT [facility] Hospitalist discharge note Date of Service (when [...] follow-up with cardiology, primary care physician in [place] Speedy Mcduffie is a 76 year old male with a past medical history of Htn, CKD, atrial tachycardia, chronic back pain who was admitted on 05/05/2017 with encephalopathy thought due to opioid overdose. ?? 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 Also had been taking gabapentin and flexeril. [...] ? Suspected Aspiration PNA: as above Daughter (TRANSIT MAN) found patient with large amount of material [...] had been managed by his PMD and ALBERENE STONE SETTER was on Morphine 15 mg po BID (daughter reported that in the past he was confused with Oxycontin),??Chatom 7/325 mg 1 tab po q4-6 h; he is also on scheduled Gabapentin and prn Flexeril -had a recent admission to [facility] from 04/28-04/30 for severe lower back pain [...] then stop - Consulted PT/OT. ? HTN: ALBERENE STONE SETTER on Metoprolol which was dced with bradycardia. [...] Mendes LSW - 05/12/2017 11:10 AM CDT [facility]: [phone]. documented in this encounter Medications at Time [...] continuation of in hospital lisinopril, restart of ALBERENE STONE SETTER metoprolol (had been advised against rate slowing agents by cardiology), restart of ALBERENE STONE SETTER flexeril and unclear amiodarone plan. states that [...] hospitalization events. -Raquel given phone # to [facility] and names of last 2 providers seen. -Provided information on creatinine and GFR lab values as well as last administered doses of PRN metoprolol (05/09), PO metoprolol (05/07 - 1/ ALBERENE STONE SETTER dose) and daily lisinopril (05/12) during hospital [...] located a hospital bed for rent near [place] and has made arrangements for delivery today. SW notified NH and hospitalist to meet with daughter.per request. CC made referral to [facility] per request. Pt's family has used this agency previously. Team Members notified: Hospitalist, RN, CC, FIRE POT OPERATOR Plan: Discharge home today with family and home care services through [facility]. Sanjuanita Ponce RN - 05/12/2017 9:44 AM CDT Met w/ pt's dtr Raquel and ADRIANO to discuss dc planning. Raquel has some concerns about pt going home rather than TCU but her sister Chastity is on FMLA and intends to stay at home to care for him. Raquel is a [facility] ICU nurse and career education teacher at [employer]. She has been on FMLA but intends [...] better today and therapy is recommending OP PT/OT/PADDING MACHINE OPERATOR if not going to TCU. His pain level is still high with ambulation so he would benefit from home care initially as he will not be going out except to his appts. He would need an RN as well. Raquel would prefer to use home care through the [facility] as it is local and they have used it before. Raquel has contacted a hospital rental company and intends to rent a hospital bed for a while at home. She states this will be delivered today and she is taking care of those arrangements. Also discussed multiple f/u appts needed. She would like to stay within the [facility] system for vascular, cardiac, and sleep study. Contacted [facility] intake [phone] and spoke to Lynn. They would be able to see pt tomorrow at home. Faxed [phone] face sheet and H&P. Will fax orders when completed. Contacted [facility] to make f/u appt with Dr Lugo. Appt made for ThuJun 19 at 2:15 to discuss AC in light of AAA. Spoke w/ Natasha Iraheta FIBROUS WALLBOARD INSPECTOR [facility]. They do not need to see pt in f/u as strokes likely more related to hypoxia than AF and cardiology will be addressing AF issue. Contacted pt's PCP Dr Celina Coley at [facility]. Appt made for 05/15 at 10:00. Will fax handoff when dc orders complete. Contacted [facility] and appt made for ThuJun [address] Taylor to discuss sleep study. Await Dr Pleitez for further orders for vascular and urology f/u timing. Discussed transportation with dtr Raquel and bedside RN. Raquel's sister was planning on bringing [place] to pharmacy picking tech pt and he would have to walk [...] Lugo to discuss anticoagulation. Faxed orders to [facility] and left message with Lynn to call Raquel at [phone] toschedule appts. Sent [facility] clinic handoff. Faviochayo Berrios Mattie - 05/11/2017 4:28 PM CDT [facility] Progress Note [facility], Palliative Team PRIMARY FOCUS: ? Symptom/pain management ?? Emotional/spiritual/bahai distress ILLNESS CIRCUMSTANCES: ?? Reviewed documentation. Reflective conversation shared with Ed, which integrated elements of illnessand family narratives.? Context of Serious Illness/Symptom(s) - Pt overdosed on opioid pain relievers accidentally upon treatment for a broken tailbone. ?? Resources for Support - Strong family support from and two daughters, along with a brother who is a [employer] mailroom associate DISTRESS: ? Emotional/Existential/Relational Distress - Pt is notably thankful for surviving this overdose. He sees that he is not finished with this life, and he is beginning to look toward how best to spend his remaining time. 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 ?? Spiritual/Baptist Distress - None discussed. Pt surprisingly comfortable with his reality of surviving. ?? Social/Cultural/Economic Distress - None discussed? SPIRITUAL/PRESYBETERIAN (Coping): ? Buddhism/Mariah - Hinduism. Pt did not particularly identify his own [...] has not discharged. ? Mattie Berrios M.Div. Winery Worker Pager [phone] Kassy Go APRN REAL ESTATE ADMINISTRATOR - 05/11/2017 3:55 PM CDT [facility] Palliative Care Progress Note Speedy Mcduffie Date [...] if evening or weekend. Milana Go APRN, [facility] Palliative Medicine Pager [phone] Attestation: Total time on the floor involved [...] and are neighbors. Pt' daughterRaquel is an TRANSIT MAN and daughter Chastity is a marine pilot. Chastity states she is currently on FMLA. [...] Nikhil Rodriguez, - 05/11/2017 10:51 AM CDT [facility] Hospitalist Progress Note Nikhil Rodriguez D.O. Date of service (Date I saw patient): 05/11/2017 Assessment & Plan Speedy Mcduffie is a 76 year old male with a past medical history of Htn, CKD, atrial tachycardia, chronic back pain who was admitted on 05/05/2017 with encephalopathy thought due to opioid overdose. 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 Also had been taking gabapentin and flexeril. [...] ? Suspected Aspiration PNA: as above Daughter (TRANSIT MAN) found patient with large amount of material [...] had been managed by his PMD and ALBERENE STONE SETTER was on Morphine 15 mg po BID (daughter reported that in the past he was confused with Oxycontin),??Chatom 7/325 mg 1 tab po q4-6 h; he is also on scheduled Gabapentin and prn Flexeril -had a recent admission to [facility] from 04/28-04/30 for severe lower back pain [...] then stop - Consulted PT/OT. ? HTN: ALBERENE STONE SETTER on Metoprolol which was dced with bradycardia. [...] outpt appt will be scheduled to discuss prison option in light of AAA Interval History: [...] Taran Lugo MD Counters, Natasha Li APRN REAL ESTATE ADMINISTRATOR - 05/11/2017 9:03 AM CDT [facility]science [facility] [place] [facility] Daily Note Admission Date:05/05/2017 Date of [...] Sensory: Normal to light touch Coordination: Intact [id number] Gait: Up with assistance Cardiovascular: Regular rate [...] of small vessel ischemic disease. Natasha Iraheta, GREENHOUSE INSTRUCTOR-BC Associated attestation - Raúl Keane MD - [...] Greene MD - 05/10/2017 5:32 PM CDT [facility] Hospitalist Progress Note Assessment & Plan Speedy Mcduffie is a 76 year old male who was admitted on 05/05/2017. 76 year old male who was brought in for evaluation of unresponsiveness. ? 1. Altered mental status/Acute toxic encephalopathy Patient found by daughter (Raquel, TRANSIT MAN) after likely prolonged period of unresponsiveness and suspected aspiration. Airway was cleared by daughter, but patient was hypoxic in the 60s for what soundslike at least 40 minutes before oxygen was available. Patient responded to narcan and thus it was suspected that patient had an unintentional opioid overdose with worsening of renal function and taking scheduled morphine 15mg ER BID with Chatom 7.5/325 1-1.5 tabs PRN q4-6 hours started [...] ? 2. Suspected Aspiration PNA - Daughter (TRANSIT MAN) found patient with large amount of material [...] had been managed by his PMD and ALBERENE STONE SETTER was on Morphine 15 mg po BID (daughter reported that in the past he was confused with Oxycontin),??Chatom 7/325 mg 1 tab po q4-6 h; he is also on scheduled Gabapentin and prn Flexeril -and a recent admission to [facility] from 04/28-04/30 for severe lower back pain [...] Consulted PT/OT. ? 6. H/o HTN - ALBERENE STONE SETTER on Metoprolol 50 mg po BID for [...] Delgado MD - 05/10/2017 4:04 PM CDT [facility] Cardiology Progress Note Date of Service (when [...] Delgado MD - 05/09/2017 2:04 PM CDT [facility] Cardiology Progress Note Date of Service (when [...] sequelae of small vessel ischemic disease. Isra Greeen MD - 05/09/2017 11:58 AM CDT [facility] Hospitalist Progress Note Assessment & Plan Speedy Mcduffie is a 76 year old male who was admitted on 05/05/2017. 76 year old male who was brought in for evaluation of unresponsiveness. ? 1. Altered mental status/Acute toxic encephalopathy Patient found by daughter (Raquel, TRANSIT MAN) after likely prolonged period of unresponsiveness and suspected aspiration. Airway was cleared by daughter, but patient was hypoxic in the 60s for what soundslike at least 40 minutes before oxygen was available. Patient responded to narcan and thus it was suspected that patient had an unintentional opioid overdose with worsening of renal function and taking scheduled morphine 15mg ER BID with Chatom 7.5/325 1-1.5 tabs PRN q4-6 hours started [...] ? 2. Suspected Aspiration PNA - Daughter (TRANSIT MAN) found patient with large amount of material [...] had been managed by his PMD and ALBERENE STONE SETTER was on Morphine 15 mg po BID (daughter reported that in the past he was confused with Oxycontin),??Chatom 7/325 mg 1 tab po q4-6 h; he is also on scheduled Gabapentin and prn Flexeril -and a recent admission to [facility] from 04/28-04/30 for severe lower back pain [...] Consulted PT/OT. ? 6. H/o HTN - ALBERENE STONE SETTER on Metoprolol 50 mg po BID for [...] Bed to Chair/Chair to Bed Level of [place]: Bed to Chair moderate assist (50% patients effort) Physical Assist/Nonphysical Assist: Bed to Chair 2 persons Weight-Bearing Restrictions full weight-bearing Assistive Device - Transfer Skill Bed to Chair Chair to Bed Rehab Eval rolling walker Transfer Skill: Sit to Stand Level of [place]: Sit/Stand minimum assist (75% patients effort) Physical Assist/Nonphysical Assist: Sit/Stand 2 persons Transfer Skill: Sit to Stand full weight-bearing Assistive Device for Transfer: Sit/Stand rolling walker Transfer Skill: Toilet Transfer Level of [place]: Toilet moderate assist (50% patients effort) Physical Assist/Nonphysical Assist: Toilet 2 persons Assistive Device seat riser;grab bars Balance Balance Comments Reduced dynamic balance Upper Body Dressing Level of [place]: Dress Upper Body minimum assist (75% patients effort) Lower Body Dressing Level of [place]: Dress Lower Body maximum assist (25% patients effort) Physical Assist/Nonphysical Assist: Dress Lower Body 1 person assist Grooming Level of Ki[place]: Grooming stand-by assist Activities of Daily Living [...] in agreement with plan of care Yes [facility] AM-PAC TM 6 Clicks ?? 2016, Trustees of [facility], under license to [employer]. All rights reserved. 6 Clicks Short Forms Basic Mobility Inpatient Short Form [facility] AM-PAC??? 6 Clicks Daily Activity Inpatient Short [...] for IV heparin. Previously reported pauses so sea captain BB on hold. Could consider resuming BB and monitoring for pauses or short acting CCB. Would recommending re- consulting EP in am if cards agrees. Continue to monitor on tele. Lindsay Watt PA-C - 05/08/2017 9:13 PM CDT Paged by nursing regarding persistent sinus tachycardia in the 140s this evening. Pt asymptomatic. Reviewed chart. Pt with tachybrady syndrome. Cardiology following. Pt's ALBERENE STONE SETTER BB has been on hold as wasalternating between periods of sinus tach and sinus dani with up to 3 second pause. Will order PRN IV Metoprolol 2.5 mg q 4 hrs PRN. Monitor. If pt should become symptomatic or HR's continue to be persistently elevated, could increase dose of IV Metoprolol or reinitiate ALBERENE STONE SETTER BB. Stephany Farley MD - 05/08/2017 2:27 PM CDT [facility] Hospitalist Progress Note Date of Service (when I saw the patient): 05/08/2017 Assessment & Plan Speedy Mcduffie is a 76 year old male who was brought in for evaluation of unresponsiveness. ? 1. Altered mental status/Acute toxic encephalopathy Patient found by daughter (Raquel, TRANSIT MAN) after likely prolonged period of unresponsiveness and suspected aspiration. Airway was cleared by daughter, but patient was hypoxic in the 60s for what soundslike at least 40 minutes before oxygen was available. Patient responded to narcan and thus it was suspected that patient had an unintentional opioid overdose with worsening of renal function and taking scheduled morphine 15mg ER BID with Chatom 7.5/325 1-1.5 tabs PRN q4-6 hours started [...] ? 2. Suspected Aspiration PNA - Daughter (TRANSIT MAN) found patient with large amount of material [...] had been managed by his PMD and ALBERENE STONE SETTER was on Morphine 15 mg po BID (daughter reported that in the past he was confused with Oxycontin),??Chatom 7/325 mg 1 tab po q4-6 h; he is also on scheduled Gabapentin and prn Flexeril -and a recent admission to [facility] from 04/28-04/30 for severe lower back pain [...] Consulted PT/OT. ? 6. H/o HTN - ALBERENE STONE SETTER on Metoprolol 50 mg po BID for [...] planning totake patient home. Stephany Farley MD [phone] (P) Text page (7am to 6pm) Interval [...] hospital, year, though thought he was in [place]. No acute distress. Non-toxic. Respiratory: Clear [...] Farley MD - 05/07/2017 10:00 PM CDT [facility] Hospitalist Progress Note Date of Service (when I saw the patient): 05/07/2017 Assessment & Plan Speedy Mcduffie is a 76 year old male who was brought in for evaluation of unresponsiveness. ? 1. Altered mental status/Acute toxic encephalopathy Patient found by daughter (Raquel, TRANSIT MAN) after likely prolonged period of unresponsiveness and suspected aspiration. Airway was cleared by daughter, but patient was hypoxic in the 60s for what soundslike at least 40 minutes before oxygen was available. Patient responded to narcan and thus it was suspected that patient had an unintentional opioid overdose with worsening of renal function and taking scheduled morphine 15mg ER BID with Chatom 7.5/325 1-1.5 tabs PRN q4-6 hours started [...] ?? 2. Suspected Aspiration PNA - Daughter (TRANSIT MAN) found patient with large amount of material [...] had been managed by his PMD and ALBERENE STONE SETTER was on Morphine 15 mg po BID (daughter reported that in the past he was confused with Oxycontin),??Chatom 7/325 mg 1 tab po q4-6 h; he is also on scheduled Gabapentin and prn Flexeril -and a recent admission to [facility] from 04/28-04/30 for severe lower back pain [...] more alert. ? 6. H/o HTN - ALBERENE STONE SETTER on Metoprolol 50 mg po BID for HTN. - Holding now with bradycardia. Will follow. - monitor BP ? 7. Dyslipidemia - hold ALBERENE STONE SETTER Atorvastatin while he is npo ? 8 [...] monitoring in ICU overnight. Stephany Farley MD [phone] (P) Text page (7am to 6pm) Interval History Patient given ativan overnight and somnolent when patient's daughter present during day. Patient also noting headache throughout day. Head CT done without any acute findings. Chatom with minimal improvement. Patient's mentation improved by end of day. Discussed plan at length with daughterRaquel. -Data reviewed today: I reviewed all new [...] alone. I ordered gabapentin and low dose Chatom (home meds). RN concerned about alcohol withdrawal, experiencing hallucinations. CIWA, banana bag and ativan prn ordered for alcohol withdrawal. Stephany Farley MD - 05/06/2017 7:05 PM CDT [facility] Hospitalist Progress Note Date of Service (when I saw the patient): 05/06/2017 Assessment & Plan Speedy Mcduffie is a 76 year old male who was brought in for evaluation of unresponsiveness. ?? 1. Altered mental status/Acute toxic encephalopathy Patient found by daughter (Raquel, TRANSIT MAN) after likely prolonged period of unresponsiveness and suspected aspiration. Airway was cleared, but patient was hypoxic in the 60s for what sounds like at least 20-40 minutes before oxygen was available. Patient responded to narcan and thus it was suspected that patient had an unintentional opioid overdose with worsening of renal function and taking scheduled morphine 15mg ER BID with Chatom 7.5/325 1-1.5 tabs PRN q4-6 hours started in the past week. Also had been taking gabapentin and flexeril. - Patient started on narcan drip initially and this has since been stopped. - Appreciate electron tube assembler recommendations. Had initially planned to transfer to step down this afternoon, but patient having episodes of bradycardia in 40s - 50s, with one strip noting a rate of 29. These seem to happen when patient is sleeping and are sinus in nature. Pattern Maker Programer agrees with keeping patient in the ICU [...] ?? 2. Suspected Aspiration PNA - Daughter (TRANSIT MAN) found patient with large amount of material [...] had been managed by his PMD and ALBERENE STONE SETTER was on Morphine 15 mg po BID (daughter reported that in the past he was confused with Oxycontin), Chatom 7/325 mg 1 tab po q4-6 h; he is also on scheduled Gabapentin and prn Flexeril -and a recent admission to [facility] from 04/28-04/30 for severe lower back pain when tapering Prednisone was added. On prednisone 10mg daily at time of event with plan for 2 more days 10mg and then 3 days 5mg daily. - Holding meds initially. Avoiding narcotics. Will consult PT when more alert. ?? 6. H/o HTN - ALBERENE STONE SETTER on Metoprolol 50 mg po BID for HTN. - Holding now with episodic bradycardia. Will follow. - monitor BP - Metoprolol iv prn ordered ?? 7. Dyslipidemia - hold ALBERENE STONE SETTER Atorvastatin while he is npo ?? 8 [...] hypoxia. PT consulted. ?? Stephany Farley MD [phone] (P) Text page (7am to 6pm) Interval [...] 76 yo male found unresponsive, airlifted to [facility] for ongoing treatment of unitnentional overdose with [...] in agreement with plan of care Yes [facility] TM 6 Clicks ?? 2016, Trustees of [facility], under license to [employer]. All rights reserved. 6 Clicks Short Forms Basic Mobility Inpatient Short Form [facility]??? 6 Clicks V.2 Basic Mobility Inpatient [...] 76 yo male found unresponsive, airlifted to [facility] for ongoing treatment of unitnentional overdose with [...] in agreement with plan of care Yes [facility] TM 6 Clicks ?? 2016, Trustees of [facility], under license to [employer]. All rights reserved. 6 Clicks Short Forms Basic Mobility Inpatient Short Form [facility]??? 6 Clicks V.2 Basic Mobility Inpatient [...] Total Evaluation Time (Minutes) 10 Marie Zuñiga, PADDING MACHINE OPERATOR - 05/06/2017 1:30 PM CDT 05/06/17 0959 [...] Type of O2 supply Nasal cannula Comments Spedey Mcduffie is a 76 year old male [...] aspiration of his vomit. Clinical Swallow Eval: [place] Thick Liquid Texture Trial Mode of Presentation, [place] spoon;self-fed Volume of [place] Presented 3 teaspoons Oral Phase, [place] WFL Pharyngeal Phase, [place] intact Clinical Swallow Eval: Puree Solid Texture [...] Irvin MD - 05/06/2017 9:51 AM CDT [facility] Critical Care Service Progress Note Date of Service: 05/06/2017 Assessment & Plan Speedy Mcduffie is a 76 year old male who was admitted on 05/05/2017 with altered mental status following a possible unintentional narcotic overdose. SYSTEMS OPERATOR: Alert, appropriate, oriented this AM. - Altered [...] FEN/GI: Abdomen benign. - NPO for now. PADDING MACHINE OPERATOR evaluation to assess swallow, consider starting diet [...] Today - Stop naloxone infusion. - PT, PADDING MACHINE OPERATOR. - Possible transfer from ICU. Interval History [...] Mccullough MD - 05/05/2017 5:34 PM CDT [facility] History and Physical Hospitalist Date of Admission: [...] BID, more recently (last week) started on Chatom 7.5/325 mg 1 tab po q4-6h prn - he is also on scheduled Gabapentin and Flexeril prn - his daughter- who is a TRANSIT MAN does not think that he overdosed intentionally; [...] 141/81 - discussed with ICU attending; formal electron tube assembler consult - continue BiPAP for now- wean [...] had been managed by his PMD and ALBERENE STONE SETTER was on Morphine 15 mg po BID (daughter reported that in the past he was confused with Oxycontin), Chatom 7/325 mg 1 tab po q4-6 h; he is also on scheduled Gabapentin and prn Flexeril -and a recent admission to [facility] from 04/28-04/30 for severe lower back pain when tapering Prednisone was added - it seems that he was doing fine at home, walking with walker - now holding all narcotics, Gabapentin, Flexeril - may need to be seen by PT when he will be more awake 6. 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 [...] the time of my examination;she is a TRANSIT MAN at [employer]. History of Present Illness Speedy Mcduffie is [...] time); more recently- he was started on Chatom 7/325 mg 1 tab poq4-6 h; he is also on scheduled Gabapentin and prn Flexeril. He was recently admitted to [facility] from 04/28- 04/30/2017 for severe back [...] called 911; he was air lifted to [facility]. As per report- he was given Narcan [...] vibration. His coordin ation is intact to [id number]. I did not his gait exam. Impression: [...] additional neurological questions. Arpita Nelson MD Document: [id number] REEDER\. Margaret Laguna MD - 05/08/2017 10:11 AM CDT [facility] Palliative Care Consultation Note Patient: Speedy Mcduffie [...] with any urgent needs. Margaret Laguna Pager: [phone] [facility] Inpatient Team Consult pager [phone] (M-F 8-4:30) After-hours Answering Service [phone] Palliative Clinic: [phone] Assessment Speedy Mcduffie is a 76 year old male with lower back pain 2/2 incomplete sacral fracture after a fall managed conservatively with opioids admitted 05/05 for suspected unintentional opioid overdose and aspiration. Course complicated by acute hypoxic respiratory failure, altered mental status, acute on CKD. Symptoms: Pain: didn't tolerate opioids throughout his treatment course (a little over a week ALBERENE STONE SETTER): felt somnolent. He doesn't recall making changes [...] done rapidly if he hasn't taken it ALBERENE STONE SETTER. Lidocaine patches didn't help in the past. Gets good relief with heat and ice, using heating pad now. I feel a trial of low-dose diclofenac with monitoring of his renal function would be a good option at this time. He is already on misoprostol ALBERENE STONE SETTER, which I assume was started with the [...] Care Planning: patient is working on a [employer] Work [employer] at home, wants to designate his daughters [...] sleep last night, also received one 5/325 Chatom about 90min prior to my visit. ROS: [...] magnesia daily prn, Senna-docusate prn - none ALBERENE STONE SETTER: MS Contine 15mg bid Hydrocodone/APAP 7.5/325 1-1.5 [...] reviewed: crea 1.24 (baseline) Margaret Laguna Pager: [phone] [facility] Inpatient Team Consult pager [phone] (M-F 8-4:30) After-hours Answering Service [phone] Palliative Clinic: [phone] Total time spent was 45 minutes, >50% of time was spent counseling and/or coordination of care regarding symptom assessment, disease understanding. Rolando Burrell MD - 05/07/2017 11:00 AM CDT [facility] Cardiology Consultation Date of Admission: 05/05/2017 Rolando [...] HDL, LDL, TRIG, CHOLHDLRATIO in the last 48252 hours. Recent Labs Lab 05/07/17 0450 05/06/1744405/05/17 [...] 9:21 AM CDTAssociated Order(s): CARDIOLOGY IP CONSULT [facility] Cardiology Consultation Date of Admission: 05/05/2017 Date [...] 3 seconds) 2) Altered Mental Status - [place] to be due to incidental opioid overdose [...] opioid therapy. He had recent admission to [facility] between 711 and 713 for severe back [...] Sinus Bradycardia Kamari Jones PA-C 05/07/2017 Pager: [phone] Associated attestation - Hue Klein MD - [...] Irvin MD - 05/05/2017 6:24 PM CDT [facility] History and Physical/ Consult Critical Care Service Date of Admission: 05/05/2017 Date of Service: 05/05/17 Assessment & Plan Speedy Mcduffie is a 76 year old male who presents with altered mental status. 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 Naloxone administered during transport improved his mental status transiently. The patient has a recent sacral fracture which has caused some sidijmbcv-xu-jirqdjy pain. Past Medical History I have reviewed [...] with pertinent information if needed. Devonjenniffer Fatuma Mcudffie reports that he has quit smoking. He [...] NEG Ketones Urine Negative NEG mg/dL Specific [place] Urine 1.020 1.003 - 1.035 Blood Urine [...] patient was brought by ambulance to a [facility] helicopter and then to the emergency department for evaluation because his other daughter is nurse in the ICU at [facility]. He was not brought to [place] for evaluation because he was initially unresponsive. [...] Remove hardware foot Left lung surgical decortication E[place] teeth Family History: History reviewed. No pertinent [...] wave abnormality Abnormal ECG Rate 79 bpm. NH interval 138. QRS duration 76. QT/QTc 376/431. [...] 05/05/2017 EMERGENCY DEPARTMENT Leesa Martinez MD 05/05/17 [id number] documented in this encounter Miscellaneous Notes Provider Notification - Aubrey Morales, RN - 05/12/2017 3:42 PM CDT Paged and spoke to Dr. Pleitez notified pharmacist from [facility] called with concern with counter indications with the d/c med sent. Fingerprinter given phone number to Dr. Pleitez, she will contact pharmacy to verify. Phone number [phone] Plan of Care - Nai Santacruz PT - 05/12/2017 3:42 PM CDT Problem: Goal Outcome Summary Goal: Goal Outcome Summary Physical Therapy Discharge Summary Reason for therapy discharge: Discharged to home with home therapy. Progress towards therapy goal(s). See goals on Care Plan in [facility] electronic health record for goal details. Goals [...] goal(s). See goals on Care Plan in [facility] electronic health record for goal details. Goals [...] Goal Outcome Summary Goal: Goal Outcome Summary Co Teacher PT Patient plan for discharge: Home [...] Goal Outcome Summary Goal: Goal Outcome Summary Co Teacher PT Patient plan for discharge: None [...] PM Plan of Care - Marie Zuñiga, PADDING MACHINE OPERATOR - 05/11/2017 10:13 AM CDT Problem: Goal Outcome Summary Goal: Goal Outcome Summary Co Teacher PADDING MACHINE OPERATOR Patient plan for discharge: Patient would like [...] pt for OT session, pt busy with PADDING MACHINE OPERATOR and eating breakfast on 1st attempt, 2nd [...] and then 379cc at 1210 and 476cc [id number]. D/c pending, currently recommending TCU. Nrsg will continue to monitor. Plan of Care - Marie Zuñiga SLP - 05/10/2017 1:50 PM CDT Problem: Goal Outcome Summary Goal: Goal Outcome Summary Co Teacher PADDING MACHINE OPERATOR Patient plan for discharge: Patient would like [...] declines/aspiration signs are observed. Plan to continue PADDING MACHINE OPERATOR swallow Tx For one mores session to [...] Goal Outcome Summary Goal: Goal Outcome Summary Co Teacher PT Patient plan for discharge: Pt [...] Goal Outcome Summary Goal: Goal Outcome Summary Co Teacher OT Patient plan for discharge: home [...] Outcome: Improving Altered mental status. PT, OT, PADDING MACHINE OPERATOR. A/Ox4, forgetful, acute confusion episodes upon waking from sleep. CMS intact. LS clear. BSx4, loose stool this shift, dial patent, will remove this am, now DTV. [...] Goal Outcome Summary Goal: Goal Outcome Summary Co Teacher PADDING MACHINE OPERATOR Patient plan for discharge: Did not state [...] declines/aspiration signs are observed. Plan to continue PADDING MACHINE OPERATOR swallow Tx short term to insure diet tolerance and train strategies. Barriers to return to prior living situation: Level of assist per OT/PT needs Recommendations for discharge: Per OT/PT needs; No PADDING MACHINE OPERATOR needs likely indicated after discharge Rationale for recommendations: Anticipate PADDING MACHINE OPERATOR swallow Tx goal to be be met [...] Goal Outcome Summary Goal: Goal Outcome Summary PADDING MACHINE OPERATOR: Attempted to see patient at breakfast for [...] Pt had assist with dressing, and IADLs. Co Teacher OT Patient plan for discharge: Home [...] 05/08/2017 11:15 PM CDT Page to MD insurance professional, pt still tachy in high 115-150s - occasionally will drop below 100 but then tachycardia resumes. Given all PRN options. Orders for meds rec'd/updated in DEC. 0030 Bedside RN went togive meds and HR slowed, sustained into 70's long enough to capture strip. Tele strip printed by this tag writer, pt appears to be in a-flutter. Sent to CCU to verify. 0045 Re-page to MD insurance professional regarding underlying rhythm. STAT 12 lead ordered. [...] to hospitalist, PRN Metoprolol ordered and given. Fingerprinter also instructed to give scheduled BP meds. [...] Goal Outcome Summary Goal: Goal Outcome Summary Co Teacher PADDING MACHINE OPERATOR Patient plan for discharge: Did not state [...] day without symptoms, bp high apresoline iv mtihjy0n without much improvement. notified at 1300 hospitalist [...] life. Hosptalist ordered to give low dose Chatom and stat head CT. Notified primary nurse. Plan of Care - Kassy Chatman SLP - 05/07/2017 2:50 PM CDT Problem: Goal Outcome Summary Goal: Goal Outcome Summary Co Teacher PADDING MACHINE OPERATOR Patient plan for discharge: Did not state [...] PM Plan of Care - Marie Zuñiga PADDING MACHINE OPERATOR - 05/07/2017 9:47 AM CDT Problem: Goal Outcome Summary Goal: Goal Outcome Summary PADDING MACHINE OPERATOR: Attempted to see patient for swallow treatment [...] metoprolol per prn order after discussing with electron tube assembler. Pt then had periods of tachy/dani. See [...] hydralazine. Monitor effects. Provider Notification - Nai Jordan RN - 05/07/2017 12:45 AM CDT Pt [...] Goal Outcome Summary Goal: Goal Outcome Summary Co Teacher PT PT: Evaluation completed, treatment initiated. [...] Goal Outcome Summary Goal: Goal Outcome Summary Co Teacher PADDING MACHINE OPERATOR Patient plan for discharge: Undetermined Current status: [...] his respiratory status hold the diet. 3. PADDING MACHINE OPERATOR will f/u for diet tolerance on 05/07/17. [...] intermittently to vigorous sternal rub. MD aware, electron tube assembler consult. [place] reassess at 2000 for intubation. CV: SR, pressure stable. Pulm: LS coarse, BIPAP. GI/: Abd distended. Adequate clear urine output. Skin: intact Lines: 2 periph iv Plan: plan to reassess arousal level and ABG at 1999 Pharmacy-Admission Medication History - Victoriano Villa RPH - 05/05/2017 4:44 PM CDT Admission medication history interview status for the 05/05/2017 admission is complete. See [facility] admission navigator for prior to admission medications Medication history source reliability:Good Actions taken by pharmacist (provider contacted, etc):None Additional medication history information not noted on ALBERENE STONE SETTER med list : ----Pt unresponsive. Medication bottles [...] with Referral Routine Paroxysmal atrial Expected : Plate Embosser fibrillation (H) 05/20 (Approximate), Expires: 05/11/2018 Home Care PT Referral for Referral Routine Enceph alopathy Ordered: Hospital Discharge Aspiration pneumonia, 05/12/2017 unspecified aspiration pneumonia type, unspecified laterality, unspecified part of lung (H) Home Care OT Referral for Referral Routine Enceph alopathy Ordered: Hospital Discharge Aspiration pneumonia, 05/12/2017 unspecified aspiration pneumonia type, unspecified laterality, unspecified part of lung (H) Home Care PADDING MACHINE OPERATOR Referral for Referral Routine Encep halopathy Ordered: [...] Time Signature Sodium 144 133 - 144 [place] mmol/L [facility] Potassium 4.0 3.4 - 5.3 [place] mmol/L [facility] Chloride 112 (H) 94 - 109 [place] mmol/L [facility] Carbon Dioxide 22 20 - 32 [place] mmol/L [facility] Anion Gap 10 3 - 14 [place] mmol/L [facility] Glucose 111 (H) 70 - 99 [place] mg/dL [facility] Urea Nitrogen 25 7 - 30 [place] mg/dL [facility] Creatinine 1.55 (H) 0.66 - [place] 1.25 mg/dL [facility] GFR Estimate 44 (L) >60 [place] mL/min/1.[address] Comment: Non GFR Calc GFR Estimate If Black 53 (L) >60 mL/min/1.7m2 F [facility] Comment: GFR Calc Calcium 8.1 (L) 8.5 - 10.1 mg/dL [facility] Specimen Anatomical Collection Method Collection Time Receive d Time (Source) Location / / Volume Laterality Blood specimen 05/12/2017 8:52 AM 017 9:02 (specimen) CDT AM CDT Nikhil Rodriguez DO LAB - BLOOD ORDERABLES Performing Organization Address City/State/ZIP Code Phon e Number [facility] [address] [address] [phone] [facility] [address] [address], [place] [phone] Hemoglobin A1c (05/11/2017 11:37 AM CDT) athologist Signature Hemoglobin A1C 5.6 4.3 - 6.0 [facility] Specimen Anatomical Collection Method Collection Time Receive d Time (Source) Location / / Volume Laterality Blood specimen 05/11/2017 11:37 7 (specimen) AM CDT 11:57 AM CDT Natasha Jen Counters INJECTION MOLD TOOLING TECHNICIAN REAL ESTATE ADMINISTRATOR LAB - BLOOD ORDERABLES Performing Organization Address City/State/ZIP Code Phon e Number [facility] [address] [address] [facility] [address] [address], [place] [phone] Vitamin B12 (05/11/2017 11:37 AM CDT) athologist Signature Vitamin B12 800 193 - 986 [facility] pg/mL [facility] Specimen Anatomical Collection Method Collection Time Receive d Time (Source) Location / / Volume Laterality Blood specimen 05/11/2017 11:37 7 (specimen) AM CDT 11:57 AM CDT Natasha Jen Counters INJECTION MOLD TOOLING TECHNICIAN REAL ESTATE ADMINISTRATOR LAB - BLOOD ORDERABLES Performing Organization Address City/State/ZIP Code Phon e Number [address] [address] [facility] Vitamin D Deficiency (05/11/2017 11:37 AM CDT) athologist Signature Vitamin D 26 20 - 75 [facility] Deficiency ug/L [place] [facility] Comment: Season, race, dietary intake, and treatm ent affect the concentration of 24-txroohw-Cpjycbx D. Values may decrea se during winter [...] CDT 11:57 AM CDT Natasha Jen Counters INJECTION MOLD TOOLING TECHNICIAN REAL ESTATE ADMINISTRATOR LAB - BLOOD ORDERABLES Performing Organization Address City/[facility]/ZIP Code Phon e Number [id number] [place] [address] (ABNORMAL) Lipid Profile (05/11/2017 11:37 AM CDT) P athologist Signature Cholesterol 128 <200 mg/dL [facility] Triglycerides 164 (H) <150 mg/dL [facility] Comment: Borderline high: ??150-199 mg/dl High: ? 200-499 mg/dl Very high: ? >499 mg/dl HDL Cholesterol 44 >39 mg/dL [facility] LDL Cholesterol Calculated 51 <100 mg/dL [facility] Comment: Desirable: <100 mg/dl Non HDL Cholesterol 84 <130 mg/dL [facility] Specimen Anatomical Collection Method Collection Time Receive d Time (Source) Location / / Volume Laterality Blood specimen 05/11/2017 11:37 7 (specimen) AM CDT 11:57 AM CDT Natasha Jen Counters INJECTION MOLD TOOLING TECHNICIAN REAL ESTATE ADMINISTRATOR LAB - BLOOD ORDERABLES Performing Organization Address City/[facility]/ZIP Code Phon e Number [facility] [address] [address] [phone] [facility] [address] [address], [place] [phone] Platelet count (05/11/2017 7:17 AM CDT) P athologist Signature Platelet Count 169 150 - 450 [place] 10e9/L [facility] Specimen Anatomical Collection Method Collection Time Receive d Time (Source) Location / / Volume Laterality Blood specimen 05/11/2017 7:17 AM 017 7:30 (specimen) CDT AM CDT Stephany Farley MD LAB - BLOOD ORDERABLES Performing Organization Address City/State/ZIP Code Phon e Number [facility] [address] [place] [address] [facility] [address] [place] [address], [place] [phone] (ABNORMAL) Basic metabolic panel (05/11/2017 7:17 AM CDT) Analysis Performed At Path logist Time Signature Sodium 144 133 - 144 [place] mmol/L [facility] Potassium 3.7 3.4 - 5.3 [place] mmol/L [facility] Chloride 112 (H) 94 - 109 [place] mmol/L [facility] Carbon Dioxide 23 20 - 32 [place] mmol/L [facility] Anion Gap 9 3 - 14 [place] mmol/L [facility] Glucose 94 70 - 99 [place] mg/dL [facility] Urea Nitrogen 25 7 - 30 [place] mg/dL [facility] Creatinine 1.56 (H) 0.66 - [place] 1.25 mg/dL [facility] GFR Estimate 44 (L) >60 [place] mL/min/1.[address] Comment: Non GFR Calc GFR Estimate If Black 53 (L) >60 mL/min/1.7m2 F [facility] Comment: GFR Calc Calcium 8.5 8.5 - 10.1 mg/dL [facility] Specimen Anatomical Collection Method Collection Time Receive d Time (Source) Location / / Volume Laterality Blood specimen 05/11/2017 7:17 AM 017 7:30 (specimen) CDT AM CDT Isra Greene MD LAB - BLOOD ORDERABLES Performing Organization Address City/State/ZIP Code Phon e Number [facility] [address] [place] [address] [facility] [address] [address], [place] [phone] (ABNORMAL) CBC with platelets differential (05/10/2017 7:43 AM CDT) [facility] gist Method Time Signature WBC 7.7 4.0 - [place] 11.[address] RBC Count 3.89 (L) 4.4 - 5.9 [place] 10e12/L [facility] Hemoglobin 12.7 (L) 13.3 - [place] 17.7 g/dL [facility] Hematocrit 37.0 (L) 40.0 - [place] 53.0 % [facility] MCV 95 78 - 100 [place] fl [facility] MCH 32.6 26.5 - [place] 33.0 pg [facility] MCHC 34.3 31.5 - [place] 36.5 g/dL [facility] RDW 13.3 10.0 - [place] 15.0 % [facility] Platelet Count 168 150 - [address] Diff Method Automated [place] Method [facility] % Neutrophils 68.9 % [facility] % Lymphocytes 17.9 % [facility] % Monocytes 9.7 % [facility] % Eosinophils 2.6 % [facility] % Basophils 0.3 % [facility] % Immature 0.6 % [place] Granulocytes [facility] Nucleated RBCs 0 0 /100 [facility] Absolute 5.3 1.6 - 8.3 [place] Neutrophil [facility] Absolute 1.4 0.8 - 5.3 [place] Lymphocytes 109[facility] Absolute 0.8 0.0 - 1.3 [place] Monocytes 10e9[facility] Absolute 0.2 0.0 - 0.7 [place] Eosinophils 10[facility] Absolute 0.0 0.0 - 0.2 [place] Basophils 109[facility] Abs Immature 0.1 0 - 0.4 [place] Granulocytes [address] [place] [address] Absolute 0.0 [place] Nucleated RBC [facility] Specimen Anatomical Collection Method Collection Time Receive d Time (Source) Location / / Volume Laterality Blood specimen 05/10/2017 7:43 AM 017 8:05 (specimen) CDT AM CDT Isra Greene MD LAB - BLOOD ORDERABLES Performing Organization Address City/State/ZIP Code Phon e Number [facility] [address] [place] [address] [facility] [address] [address], [place] [phone] (ABNORMAL) Basic metabolic panel (05/10/2017 7:43 AM CDT) Analysis Performed At Path logis Time Signature Sodium 144 133 - 144 [place] mmol/L [facility] Potassium 3.5 3.4 - 5.3 [place] mmol/L [facility] Chloride 111 (H) 94 - 109 [place] mmol/L [facility] Carbon Dioxide 23 20 - 32 [place] mmol/L [facility] Anion Gap 10 3 - 14 [place] mmol/L [facility] Glucose 97 70 - 99 [place] mg/dL [facility] Urea Nitrogen 24 7 - 30 [place] mg/dL [facility] Creatinine 1.49 (H) 0.66 - [place] 1.25 mg/dL [facility] GFR Estimate 46 (L) >60 [place] mL/min/1.[address] Comment: Non GFR Calc GFR Estimate If Black 56 (L) >60 mL/min/1.7m2 F [facility] Comment: GFR Calc Calcium 8.6 8.5 - 10.1 mg/dL [facility] Specimen Anatomical Collection Method Collection Time Receive d Time (Source) Location / / Volume Laterality Blood specimen 05/10/2017 7:43 AM 017 8:05 (specimen) CDT AM CDT Isra Greene MD LAB - BLOOD ORDERABLES Performing Organization Address City/State/ZIP Code Phon e Number [facility] [address] [address] [facility] [address] [address], [place] [phone] MR Brain w/o & w Contrast (05/09/2017 [...] with platelets differential (05/09/2017 7:27 AM CDT) [facility] gist Method Time Signature WBC 9.5 4.0 - [facility] 11.0 [facility] 10e9/[facility] RBC Count 3.94 (L) 4.4 - 5.9 [place] 10e12/L [facility] Hemoglobin 12.9 (L) 13.3 - [place] 17.7 g/dL [facility] Hematocrit 37.0 (L) 40.0 - [place] 53.0 % [facility] MCV 94 78 - 100 [place] fl [facility] MCH 32.7 26.5 - [facility] 33.0 pg [facility] MCHC 34.9 31.5 - [place] 36.5 g/dL [facility] RDW 13.1 10.0 - [place] 15.0 % [facility] Platelet Count 185 150 - 450 [place] 10e9/L [facility] Diff Method Automated [place] Method [facility] % Neutrophils 74.3 % [facility] % Lymphocytes 13.7 % [facility] % Monocytes 9.3 % [facility] % Eosinophils 2.2 % [facility] % Basophils 0.1 % [facility] % Immature 0.4 % [place] Granulocytes [facility] Nucleated RBCs 0 0 /100 [facility] Absolute 7.1 1.6 - 8.3 [place] Neutrophil 10e9/L [facility] Absolute 1.3 0.8 - 5.3 [place] Lymphocytes 10e9/L [facility] Absolute 0.9 0.0 - 1.3 [place] Monocytes 10e9/L [facility] Absolute 0.2 0.0 - 0.7 [place] Eosinophils 10e9/L [facility] Absolute 0.0 0.0 - 0.2 [place] Basophils 10e9/L [facility] Abs Immature 0.0 0 - 0.4 [place] Granulocytes 10e9/L [facility] Absolute 0.0 [place] Nucleated RBC [facility] Specimen Anatomical Collection Method Collection Time Receive d Time (Source) Location / / Volume Laterality Blood specimen 05/09/2017 7:27 AM 017 7:40 (specimen) CDT AM CDT Stephany Farley MD LAB - BLOOD ORDERABLES Performing Organization Address City/[facility]/ZIP [facility] Phon e Number [facility] [address] [address] [phone] [facility] [address] [address], [place] [phone] (ABNORMAL) Basic metabolic panel (05/09/2017 7:27 AM CDT) Analysis Performed At Patho logist Time Signature Sodium 142 133 - 144 [place] mmol/L [facility] Potassium 3.5 3.4 - 5.3 [place] mmol/L [facility] Chloride 110 (H) 94 - 109 [place] mmol/L [facility] Carbon Dioxide 21 20 - 32 [place] mmol/L [facility] Anion Gap 11 3 - 14 [place] mmol/L [facility] Glucose 105 (H) 70 - 99 [place] mg/dL [facility] Urea Nitrogen 22 7 - 30 [place] mg/dL [facility] Creatinine 1.44 (H) 0.66 - [place] 1.25 mg/dL [facility] GFR Estimate 48 (L) >60 [place] mL/min/1.[address] Comment: Non GFR Calc GFR Estimate If Black 58 (L) >60 mL/min/1.7m2 F [facility] Comment: GFR Calc Calcium 9.1 8.5 - 10.1 mg/dL [facility] Specimen Anatomical Collection Method Collection Time Receive d Time (Source) Location / / Volume Laterality Blood specimen 05/09/2017 7:27 AM 017 7:40 (specimen) CDT AM CDT Stephany Farley MD LAB - BLOOD ORDERABLES Performing Organization Address City/State/ZIP Code Phon e Number [facility] [address] [place] [address] [facility] [address] [place] [address], [place] [phone] EKG 12-lead, tracing only (05/09/2017 12:59 AM CDT) [facility] Method Time Signature Interpretation ECG Click View RADIOLOGY Image link RESULTS to view waveform and result Specimen (Source) Anatomical Collection Method Collection Time Re ceived Time Location / / Volume Laterality 05/09/2017 12:59 AM CDT Mickey Smith MD ECG ORDERABLES Performing Organization Address City/State/ZIP Code Phon e Number RADIOLOGY RESULTS EKG 12-lead, tracing only (05/08/2017 9:00 PM CDT) [facility] Method Time Signature Interpretation ECG Click [...] Signature Lactic Acid 1.3 0.7 - 2.1 [place] mmol/L [facility] Specimen Anatomical Collection Method Collection Time Receive d Time (Source) Location / / Volume Laterality Blood specimen 05/08/2017 8:45 PM 017 8:58 (specimen) CDT PM CDT Stephany Farley MD LAB - BLOOD ORDERABLES Performing Organization Address City/State/ZIP Code Phon e Number [facility] [address] [place] [address] [facility] [address] [place] [address], [place] [phone] (ABNORMAL) N-terminal Pro BNP Inpatient (AM Draw) (05/08/2017 5:00 AM CDT) Analysis Performed At Patho logist Time Signature N-Terminal Pro 2,947 (H) 0 - 900 [place] BNP Inpatient pg/mL [facility] Comment: Reference range shown and results flagge [...] Code Phon e Number [facility] [address] [address] [facility] [address] [place] [address], [place] [phone] (ABNORMAL) CBC with platelets differential (05/08/2017 5:00 AM CDT) [facility] Method Time Signature WBC 12.7 (H) 4.0 - [place] 11.0 [facility] 10e9/L [facility] RBC Count 4.00 (L) 4.4 - 5.9 [place] 10e12/L [facility] Hemoglobin 13.0 (L) 13.3 - [place] 17.7 g/dL [facility] Hematocrit 38.3 (L) 40.0 - [place] 53.0 % [facility] MCV 96 78 - 100 [place] fl [facility] MCH 32.5 26.5 - [place] 33.0 pg [facility] MCHC 33.9 31.5 - [place] 36.5 g/dL [facility] RDW 13.1 10.0 - [place] 15.0 % [facility] Platelet Count 162 150 - 450 [place] 10e9/L [facility] Diff Method Automated [place] Method [facility] % Neutrophils 82.5 % [facility] % Lymphocytes 8.9 % [facility] % Monocytes 6.9 % [facility] % Eosinophils 1.2 % [facility] % Basophils 0.1 % [facility] % Immature 0.4 % [place] Granulocytes [facility] Nucleated RBCs 0 0 /100 [facility] Absolute 10.5 (H) 1.6 - 8.3 [place] Neutrophil 10e9/L [facility] Absolute 1.1 0.8 - 5.3 [place] Lymphocytes 10e9/L [facility] Absolute 0.9 0.0 - 1.3 [place] Monocytes 10e9/L [facility] Absolute 0.2 0.0 - 0.7 [place] Eosinophils 10e9/L [facility] Absolute 0.0 0.0 - 0.2 [place] Basophils 10e9/L [facility] Abs Immature 0.1 0 - 0.4 [place] Granulocytes 10e9/L [facility] Absolute 0.0 [place] Nucleated RBC [facility] Specimen Anatomical Collection Method Collection Time Receive d Time (Source) Location / / Volume Laterality Blood specimen 05/08/2017 5:00 AM 017 5:06 (specimen) CDT AM CDT Stephany Farley MD LAB - BLOOD ORDERABLES Performing Organization Address City/State/ZIP Code Phon e Number [facility] [address] [address] [phone] [facility] [address] [address], [facility] [phone] (ABNORMAL) Basic metabolic panel (05/08/2017 5:00 AM CDT) athologist Signature Sodium 140 133 - 144 [place] mmol/L [facility] Potassium 4.1 3.4 - 5.3 [place] mmol/L [facility] Chloride 109 94 - 109 [place] mmol/L [facility] Carbon Dioxide 20 20 - 32 [place] mmol/L [facility] Anion Gap 11 3 - 14 [place] mmol/L [facility] Glucose 106 (H) 70 - 99 [place] mg/dL [facility] Urea Nitrogen 19 7 - 30 [place] mg/dL [facility] Creatinine 1.24 0.66 - [place] 1.25 mg/dL [facility] GFR Estimate 57 (L) >60 [place] mL/min/1.[address] Comment: Non GFR Calc GFR Estimate If Black 69 >60 mL/min/1.7m2 F [facility] Comment: GFR Calc Calcium 8.8 8.5 - 10.1 mg/dL [facility] Specimen Anatomical Collection Method Collection Time Receive d Time (Source) Location / / Volume Laterality Blood specimen 05/08/2017 5:00 AM 017 5:06 (specimen) CDT AM CDT Stephany Farley MD LAB - BLOOD ORDERABLES Performing Organization Address City/State/ZIP Code Phon e Number [facility] [address] [address] [facility] [address] [address], U [phone] CT Head w/o Contrast (05/07/2017 5:04 PM [...] 7 4:25 CDT PM CDT Miladys [facility] POCT Performing Organization Address City/State/ZIP Code Phon e Number FV POINT OF CARE TEST, GLUCOSE POINT OF CARE TEST, GLUCOSE ECHO COMPLETE WITH OPTISON (05/07/2017 11:36 AM CDT) Anatomical Region Laterality Modality Echocardiography Specimen (Source) Anatomical Collection Method Collection Time Re ceived Time Location / / Volume Laterality 05/07/2017 10:53 AM CDT Narrative 05/07/2017 1:17 PM T [id number] [id number] [id number]^RUSTY^KAMARI^ [facility] Echocardiography Laboratory [address] [place] [address], [place] [address] Name: SPEEDY MCDUFFIE : 1940 Study Date: 05/07/2017 10:53 AM Age: 76 yrs Gender: Male Patient Location: [facility] Reason For Study: Afib Ordering Physician: TWAN [...] note might be different from the original. [id number]^RUSTY^KAMARI^ [facility] Echocardiography Laboratory [address] [place] [id number] Name: SPEEDY MCDUFFIE : 1940 Study Date: 05/07/2017 10:53 AM Age: 76 yrs Gender: Male Patient Location: [facility] Reason For Study: Afib Ordering Physician: TWAN [...] Signature Bilirubin Direct 0.2 0.0 - 0.2 [place] mg/dL [facility] Bilirubin Total 0.5 0.2 - 1.3 [place] mg/dL [facility] Albumin 2.6 (L) 3.4 - 5.0 [place] g/dL [facility] Protein Total 6.2 (L) 6.8 - 8.8 [place] g/dL [facility] Alkaline 156 (H) 40 - 150 [place] Phosphatase U/L [facility] ALT 34 0 - 70 U/L [facility] AST 46 (H) 0 - 45 U/L [facility] Specimen Anatomical Collection Method Collection Time Receive d Time (Source) Location / / Volume Laterality Blood specimen 05/07/2017 4:50 AM 017 4:55 (specimen) CDT AM CDT Stephany Farley MD LAB - BLOOD ORDERABLES Performing Organization Address City/State/ZIP Code Phon e Number [facility] [address] [address] [phone] [facility] [address] [address], [place] [phone] (ABNORMAL) Basic metabolic panel (05/07/2017 4:50 AM CDT) Analysis Performed At Patho logist Time Signature Sodium 143 133 - 144 [place] mmol/L [facility] Potassium 4.8 3.4 - 5.3 [place] mmol/L [facility] Chloride 114 (H) 94 - 109 [place] mmol/L [facility] Carbon Dioxide 20 20 - 32 [place] mmol/L [facility] Anion Gap 9 3 - 14 [place] mmol/L [facility] Glucose 130 (H) 70 - 99 [place] mg/dL [facility] Urea Nitrogen 25 7 - 30 [place] mg/dL [facility] Creatinine 1.52 (H) 0.66 - [place] 1.25 mg/dL [facility] GFR Estimate 45 (L) >60 [place] mL/min/1.[address] Comment: Non GFR Calc GFR Estimate If Black 54 (L) >60 mL/min/1.7m2 F [facility] Comment: GFR Calc Calcium 8.8 8.5 - 10.1 mg/dL [facility] Specimen Anatomical Collection Method Collection Time Receive d Time (Source) Location / / Volume Laterality Blood specimen 05/07/2017 4:50 AM 017 4:55 (specimen) CDT AM CDT Stephany Farley MD LAB - BLOOD ORDERABLES Performing Organization Address City/State/ZIP Code Phon e Number [facility] [address] [address] [phone] [facility] [address] [address], [facility] [phone] Magnesium (05/07/2017 4:50 AM CDT) P athologist Signature Magnesium 2.3 1.6 - 2.3 [place] mg/dL [facility] Specimen Anatomical Collection Method Collection Time Receive d Time (Source) Location / / Volume Laterality Blood specimen 05/07/2017 4:50 AM 017 4:55 (specimen) CDT AM CDT Stephany Farley MD LAB - BLOOD ORDERABLES Performing Organization Address City/State/ZIP Code Phon e Number [facility] [address] [place], [place] [address] [facility] [address] [place] [address], [place] [phone] Phosphorus (05/07/2017 4:50 AM CDT) P athologist Signature Phosphorus 3.3 2.5 - 4.5 [place] mg/dL [facility] Specimen Anatomical Collection Method Collection Time Receive d Time (Source) Location / / Volume Laterality Blood specimen 05/07/2017 4:50 AM 017 4:55 (specimen) CDT AM CDT Stephany Farley MD LAB - BLOOD ORDERABLES Performing Organization Address City/State/ZIP Code Phon e Number [facility] [address] [place] [address] [facility] [address] [place] [address], [place] [phone] (ABNORMAL) CBC with platelets differential (05/07/2017 4:50 AM CDT) Component Value Ref Test Analysis Performed At [facility] Range Method Time Signature WBC 11.9 (H) 4.0 - [place] 11.0 [facility] 10e9/L [facility] RBC Count 3.79 (L) 4.4 - [place] 5.9 [facility] 10e12/L [facility] Hemoglobin 12.5 (L) 13.3 - [place] 17.7 [facility] g/dL [facility] Hematocrit 37.5 (L) 40.0 - [place] 53.0 % [facility] MCV 99 78 - 100 [facility] MCH 33.0 26.5 - [place] 33.0 pg [facility] MCHC 33.3 31.5 - [place] 36.5 [facility] g/dL [facility] RDW 13.5 10.0 - [place] 15.0 % [facility] Platelet Count 150 150 - [place] 450 [facility] 10e9/L [facility] Diff Method Manual [place] Differential [facility] % Neutrophils 92.0 % [facility] % Lymphocytes 3.0 % [facility] % Monocytes 5.0 % [facility] % Eosinophils 0.0 % [facility] % Basophils 0.0 % [facility] Absolute 10.9 (H) 1.6 - [place] Neutrophil 8.3 [facility] 10e9/L [facility] Absolute 0.4 (L) 0.8 - [place] Lymphocytes 5.3 [facility] 10e9/L [facility] Absolute 0.6 0.0 - [place] Monocytes 1.3 [facility] 10e9/L [facility] Absolute 0.0 0.0 - [place] Eosinophils 0.7 [facility] 10e9/L [facility] Absolute 0.0 0.0 - [place] Basophils 0.2 [facility] [address] RBC Morphology Normal [facility] Platelet Confirming [place] Estimate automated cell [facility] Specimen Anatomical Collection Method Collection Time Receive d Time (Source) Location / / Volume Laterality Blood specimen 05/07/2017 4:50 AM 017 4:55 (specimen) CDT AM CDT Setphany Farley MD LAB - BLOOD ORDERABLES Performing Organization Address City/State/ZIP Code Phon e Number [facility] [address] [address] [phone] [facility] [address] [address], [place] [phone] Calcium (05/06/2017 5:18 PM CDT) P athologist Signature Calcium 8.6 8.5 - 10.1 [place] mg/dL [facility] Specimen Anatomical Collection Method Collection Time Receive d Time (Source) Location / / Volume Laterality Blood specimen 05/06/2017 5:18 PM 017 5:23 (specimen) CDT PM CDT Jaswinder Goins MD LAB - BLOOD ORDERABLES Performing Organization Address City/State/ZIP Code Phon e Number [facility] [address] [address] [facility] [address] [address], [place] [phone] Magnesium (1200) (05/06/2017 5:18 PM CDT) P athologist Signature Magnesium 1.9 1.6 - 2.3 [place] mg/dL [facility] Specimen Anatomical Collection Method Collection Time Receive d Time (Source) Location / / Volume Laterality Blood specimen 05/06/2017 5:18 PM 017 5:23 (specimen) CDT PM CDT Jaswinder Goins MD LAB - BLOOD ORDERABLES Performing Organization Address City/State/ZIP Code Phon e Number [facility] [address] [place] [address] [facility] [address] [place] [address], [place] [phone] EKG 12-lead, tracing only (05/06/2017 5:08 PM CDT) Patholo gist Method Time Signature Interpretation ECG Click View RADIOLOGY Image link RESULTS to view waveform and result Specimen (Source) Anatomical Collection Method Collection Time Re ceived Time Location / / Volume Laterality 05/06/2017 5:08 PM CDT Jaswinder Goins MD ECG ORDERABLES Performing Organization Address City/[facility]/ZIP Code Phon e Number RADIOLOGY RESULTS (ABNORMAL) CBC with platelets (05/06/2017 4:45 AM CDT) Analysis Performed At Patho logist Time Signature WBC 14.4 (H) 4.0 - 11.0 [place] 10e9/L [facility] RBC Count 3.85 (L) 4.4 - 5.9 [place] 10e12/L [facility] Hemoglobin 12.5 (L) 13.3 - [place] 17.7 g/dL [facility] Hematocrit 38.3 (L) 40.0 - [place] 53.0 % [facility] MCV 100 78 - 100 [place] fl [facility] MCH 32.5 26.5 - [place] 33.0 pg [facility] MCHC 32.6 31.5 - [place] 36.5 g/dL [facility] RDW 13.3 10.0 - [place] 15.0 % [facility] Platelet Count 135 (L) 150 - 450 [place] 10e9/L [facility] Specimen Anatomical Collection Method Collection Time Receive d Time (Source) Location / / Volume Laterality Blood specimen 05/06/2017 4:45 AM 017 4:54 (specimen) CDT AM CDT Miladys Mccullough MD LAB - BLOOD ORDERABLES Performing Organization Address City/[facility]/ZIP Code Phon e Number [facility] [address] [place] [address] [facility] [address] [place] [address], [place] [phone] (ABNORMAL) Hepatic panel (05/06/2017 4:45 AM CDT) Analysis Performed At Patho logist Time Signature Bilirubin Direct 0.2 0.0 - 0.2 [place] mg/dL [facility] Bilirubin Total 0.6 0.2 - 1.3 [place] mg/dL [facility] Albumin 2.6 (L) 3.4 - 5.0 [place] g/dL [facility] Protein Total 6.0 (L) 6.8 - 8.8 [place] g/dL [facility] Alkaline 144 40 - 150 [place] Phosphatase U/L [facility] ALT 33 0 - 70 U/L [facility] AST 57 (H) 0 - 45 U/L [facility] Specimen Anatomical Collection Method Collection Time Receive d Time (Source) Location / / Volume Laterality Blood specimen 05/06/2017 4:45 AM 017 4:54 (specimen) CDT AM CDT Miladys Mccullough MD LAB - BLOOD ORDERABLES Performing Organization Address City/State/ZIP Code Phon e Number [facility] [address] [place] [address] [phone] [facility] [address] [place] [address], [place] [phone] (ABNORMAL) Basic metabolic panel (05/06/2017 4:45 AM CDT) Analysis Performed At Patho logist Time Signature Sodium 143 133 - 144 [place] mmol/L [facility] Potassium 4.5 3.4 - 5.3 [place] mmol/L [facility] Chloride 115 (H) 94 - 109 [place] mmol/L [facility] Carbon Dioxide 20 20 - 32 [place] mmol/L [facility] Anion Gap 8 3 - 14 [place] mmol/L [facility] Glucose 129 (H) 70 - 99 [place] mg/dL [facility] Urea Nitrogen 39 (H) 7 - 30 [place] mg/dL [facility] Creatinine 1.79 (H) 0.66 - [place] 1.25 mg/dL [facility] GFR Estimate 37 (L) >60 [place] mL/min/1.[address] Comment: Non GFR Calc GFR Estimate If Black 45 (L) >60 mL/min/1.7m2 F [facility] Comment: GFR Calc Calcium 7.8 (L) 8.5 - 10.1 mg/dL [facility] Specimen Anatomical Collection Method Collection Time Receive d Time (Source) Location / / Volume Laterality Blood specimen 05/06/2017 4:45 AM 017 4:54 (specimen) CDT AM CDT Miladys Mccullough MD LAB - BLOOD ORDERABLES Performing Organization Address City/State/ZIP Code Phon e Number [facility] [address] [address] [facility] [address] [address], [facility] [phone] (ABNORMAL) Glucose by meter (05/06/2017 4:17 AM [...] Time Signature Sodium 144 133 - 144 [place] mmol/L [facility] Potassium 5.0 3.4 - 5.3 [place] mmol/L [facility] Chloride 113 (H) 94 - 109 [place] mmol/L [facility] Carbon Dioxide 21 20 - 32 [place] mmol/L [facility] Anion Gap 10 3 - 14 [place] mmol/L [facility] Glucose 148 (H) 70 - 99 [place] mg/dL [facility] Urea Nitrogen 46 (H) 7 - 30 [place] mg/dL [facility] Creatinine 1.95 (H) 0.66 - [place] 1.25 mg/dL [facility] GFR Estimate 34 (L) >60 [place] mL/min/1.[address] Comment: Non GFR Calc GFR Estimate If Black 41 (L) >60 mL/min/1.7m2 F [facility] Comment: GFR Calc Calcium 7.8 (L) 8.5 - 10.1 mg/dL [facility] Specimen Anatomical Collection Method Collection Time Receive d Time (Source) Location / / Volume Laterality Blood specimen 05/05/2017 10:35 7 (specimen) PM CDT 10:46 PM CDT Miladys Mccullough MD LAB - BLOOD ORDERABLES Performing Organization Address City/State/ZIP Code Phon e Number [facility] [address] [address] [facility] [address] [address], [place] [phone] (ABNORMAL) Blood gas arterial with oxyhemoglobin (1200) (05/05/2017 8:20 PM CDT) Patholo gist Method Time Signature pH Arterial 7.23 (L) 7.35 - [place] 7.45 pH [facility] pCO2 Arterial 45 35 - 45 [place] mm Hg [facility] pO2 Arterial 159 (H) 80 - 105 [place] mm Hg [facility] Bicarbonate 19 (L) 21 - 28 [place] Arterial mmol/L [facility] FIO2 BIPAP [place] 60 [facility] Oxyhemoglobin 99 92 - 100 [place] Arterial % [facility] Base Deficit Art 8.2 mmol/L [facility] Comment: Reference range: -9.0 to 1.8 Specimen Anatomical Collection Method Collection Time Receive d Time (Source) Location / / Volume Laterality Blood specimen 05/05/2017 8:20 PM 017 8:25 (specimen) CDT PM CDT Aubrey Irvin MD LAB - BLOOD ORDERABLES Performing Organization Address City/State/ZIP Code Phon e Number [facility] [address] [place] [address] [phone] [facility] [address] [place] [address], [facility] [phone] (ABNORMAL) Glucose by meter (05/05/2017 8:06 PM [...] PM CDT Miladys Mccullough MD LAB - [employer] POCT Performing Organization Address City/State/ZIP Code Phon [...] negative amphetamine is 500 ng/mL or less. [facility] Barbiturates Qual Negative NEG [facility] Urine Cutoff for a negative barbiturate is 200 ng/mL or less. [facility] Benzodiazepine Negative NEG [facility] Qual Urine Cutoff for a negative benzodiazepine is 200 ng/mL or less . [facility] Cannabinoids Qual Negative NEG [facility] Urine Cutoff for a negative cannabinoid is 50 ng/mL or less. [facility] Cocaine Qual Negative NEG [facility] Urine Cutoff for a negative cocaine is 300 ng/mL or less. [facility] Opiates Positive NEG [facility] Qualitative Urine Cutoff for a positive opiat e is greater than 300 ng/mL. This is an unconfirmed [facility] screening result to be used for medical purposes only. HOSPITAL (A) PCP Qual Urine Negative NEG [facility] Cutoff for a negative PCP is 25 ng/mL or less. [facility] Specimen Anatomical Collection Method Collection Time Receive d Time (Source) Location / / Volume Laterality 05/05/2017 5:20 PM 7 7:11 CDT PM CDT Miladys Mccullough MD LAB - URINE ORDERABLES Performing Organization Address City/State/ZIP Code Phon e Number [facility] [address] [place] [address] [phone] [facility] [address] [place] [address], [place] [phone] (ABNORMAL) Urine Microscopic (05/05/2017 5:20 PM CDT) [facility] Method Time Signature WBC Urine O - 2 0 - 2 [place] /HPF [facility] [place] RBC Urine O - 2 0 - 2 [place] /HPF [facility] [place] Cast Urine 2-5 0 - 2 [place] HYALINE /LPF [facility] [place] Bacteria Urine Few (A) NEG /HPF [facility] Mucous Urine Present (A) NEG /LPF [facility] Specimen Anatomical Collection Method Collection Time Receive d Time (Source) Location / / Volume Laterality 05/05/2017 5:20 PM 7 5:29 CDT PM CDT Miladys Mccullough MD LAB - URINE ORDERABLES Performing Organization Address City/State/ZIP Code Phon e Number [facility] [id number] [place], [place] [address] (ABNORMAL) UA reflex to Microscopic and Culture (05/05/2017 5:20 PM CDT) Component Value Ref Test Analysis Performed At [facility] [place] Range Method Time Signature Color Urine Yellow [facility] Appearance Urine Clear [facility] Glucose Urine Negative NEG [place] mg/dL [facility] [place] Bilirubin Urine Negative NEG [facility] Ketones Urine Negative NEG [place] mg/dL [facility] [place] Specific [place] 1.020 1.003 - [place] Urine 1.035 [facility] [place] Blood Urine Negative NEG [facility] pH Urine 5.5 5.0 - [place] 7.0 pH [facility] [place] Protein Albumin 30 (A) NEG [place] Urine mg/dL [facility] [place] Urobilinogen 0.2 0.2 - [place] Urine 1.0 [facility] EU/dL [place] Nitrite Urine Negative NEG [facility] [place] Leukocyte Negative NEG [place] Esterase Urine [facility] [place] Source Catheterized [place] Urine [facility] [place] Specimen Anatomical Collection Method Collection Time Receive d Time (Source) Location / / Volume Laterality 05/05/2017 5:20 PM 7 5:29 CDT PM CDT Miladys Mccullough MD LAB - URINE ORDERABLES Performing Organization Address City/[facility]/ZIP Code Phon e Number [facility] [place] [address] [address] Blood culture (05/05/2017 4:30 PM CDT) [facility] gist Method Time Signature Specimen Blood Left [facility] Special Aerobic and [place] Requests anaerobic [facility] bottles [place] received Culture Micro No growth [...] MICRO GENERAL ORDERABL ES Performing Organization Address City/[facility]/ZIP [facility] Phon e Number INFECTIOUS DISEASES [address] [place] [address] DIAGNOSTIC LABORATORY, [address] [address] [address] [place] [address], [facility] [phone] [place] INFECTIOUS DISEASE [address] [place] [address], [facility] DIAGNOSTIC LABORATORY Lactic acid whole blood (05/05/2017 3:50 PM CDT) P athologist Signature Lactic Acid 1.5 0.7 - 2.1 [place] mmol/L [facility] Specimen Anatomical Collection Method Collection Time Receive d Time (Source) Location / / Volume Laterality 05/05/2017 3:50 PM 7 4:06 CDT PM CDT Leesa Martinez MD LAB - BLOOD ORDERABLES Performing Organization Address City/State/ZIP Code Phon e Number [facility] [address] [address] [phone] [facility] [address] [address], [facility] [phone] Blood culture (05/05/2017 3:45 PM CDT) [facility] gist Method Time Signature Specimen Blood Left [facility] Special Aerobic and [place] Requests anaerobic [facility] ED bottles [place] received Culture Micro No [...] Code Phon e Number INFECTIOUS DISEASES [address] [place] [address] DIAGNOSTIC LABORATORY, [address] [address], [facility] [address] [address], [facility] [phone] [place] INFECTIOUS DISEASE [address] [place], [place] [address] DIAGNOSTIC LABORATORY Chest XR, 1 view PORTABLE [...] Signature pH Arterial 7.22 (L) 7.35 - [place] 7.45 pH [facility] pCO2 Arterial 48 (H) 35 - 45 [place] mm Hg [facility] pO2 Arterial 112 (H) 80 - 105 [place] mm Hg [facility] Bicarbonate 20 (L) 21 - 28 [place] Arterial mmol/L [facility] Oxyhemoglobin 97 92 - 100 [place] Arterial % [facility] Base Deficit Art 7.5 mmol/L [facility] Comment: Reference range: -9.0 to 1.8 Specimen Anatomical Collection Method Collection Time Receive d Time (Source) Location / / Volume Laterality Blood specimen 05/05/2017 3:33 PM 017 3:54 (specimen) CDT PM CDT Leesa Martinez MD LAB - BLOOD ORDERABLES Performing Organization Address City/State/ZIP Code Phon e Number [facility] [address] [address] [facility] [address] [address], [place] [phone] Troponin POCT (05/05/2017 3:29 PM CDT) P [...] LAB - BEAKER POCT Performing Organization Address [facility] Phon e Number FV POINT OF CARE TEST, HANDHELD METER POINT OF CARE TEST, HANDHELD METER EKG 12 lead (05/05/2017 3:24 PM CDT) [facility] gist Method Time Signature Interpretation ECG Click View RADIOLOGY Image link RESULTS to view waveform and result Specimen (Source) Anatomical Collection Method Collection Time Re ceived Time Location / / Volume Laterality 05/05/2017 3:24 PM CDT Leesa Martinez MD ECG ORDERABLES Performing Organization Address City/[facility]/ZIP Code Phon e Number RADIOLOGY RESULTS (ABNORMAL) Glucose by meter (05/05/2017 3:23 PM CDT) P athologist Signature Glucose 116 (H) 70 - 99 POINT OF CARE mg/dL TEST, GLUCOSE Specimen Anatomical Collection Method Collection Time Receive d Time (Source) Location / / Volume Laterality 05/05/2017 3:23 PM 7 3:25 CDT PM CDT Provider Unknown LAB - BEAKER POCT Performing Organization Address City/[facility]/ZIP Code Phon e Number [facility] POINT OF CARE TEST, GLUCOSE POINT OF CARE TEST, GLUCOSE (ABNORMAL) CK total (05/05/2017 3:20 PM CDT) P athologist Signature CK Total 325 (H) 30 - 300 [place] U/L [facility] Specimen Anatomical Collection Method Collection Time Receive d Time (Source) Location / / Volume Laterality 05/05/2017 3:20 PM 7 3:31 CDT PM CDT Leesa Martinez MD LAB - BLOOD ORDERABLES Performing Organization Address City/State/ZIP Code Phon e Number [facility] [address] [place] [address] [facility] [address] [place] [address], [place] [phone] Alcohol ethyl (05/05/2017 3:20 PM CDT) P athologist Signature Ethanol g/dL <0.01 <0.01 g/dL [facility] Specimen Anatomical Collection Method Collection Time Receive d Time (Source) Location / / Volume Laterality 05/05/2017 3:20 PM 7 3:31 CDT PM CDT Leesa Martinez MD LAB - BLOOD ORDERABLES Performing Organization Address City/State/ZIP Code Phon e Number [facility] [address] [place] [address] [phone] [facility] [address] [place] [address], [place] [phone] Salicylate level (05/05/2017 3:20 PM CDT) [facility] gist Method Time Signature Salicylate <2 mg/dL [facility] Therapeutic: ?<20 [place] Anti inflammatory: ??15-30 [facility] Specimen Anatomical Collection Method Collection Time Receive d Time (Source) Location / / Volume Laterality Blood specimen 05/05/2017 3:20 PM 017 3:31 (specimen) CDT PM CDT Leesa Martinez MD LAB - BLOOD ORDERABLES Performing Organization Address City/State/ZIP Code Phon e Number [facility] [address] [place] [address] [phone] [facility] [address] [place] [address], [place] [phone] Acetaminophen level (05/05/2017 3:20 PM CDT) Component Value Ref Test Analysis Performed At Patholo gist Range Method Time Signature Acetaminophen <2 mg/L [facility] Level Therapeutic range: 10-20 mg/L [facility] Specimen Anatomical Collection Method Collection Time Receive d Time (Source) Location / / Volume Laterality Blood specimen 05/05/2017 3:20 PM 017 3:31 (specimen) CDT PM CDT Leesa Martinez MD LAB - BLOOD ORDERABLES Performing Organization Address City/State/ZIP Code Phon e Number [facility] [address] [place] [address] [facility] [address] [place] [address], [place] [phone] (ABNORMAL) Comprehensive metabolic panel (05/05/2017 3:20 PM CDT) Analysis Performed At [facility] logist Time Signature Sodium 141 133 - 144 [place] mmol/L [facility] Potassium 4.4 3.4 - 5.3 [place] mmol/L [facility] Chloride 107 94 - 109 [place] mmol/L [facility] Carbon Dioxide 23 20 - 32 [place] mmol/L [facility] Anion Gap 11 3 - 14 [place] mmol/L [facility] Glucose 126 (H) 70 - 99 [place] mg/dL [facility] Urea Nitrogen 48 (H) 7 - 30 [place] mg/dL [facility] Creatinine 2.41 (H) 0.66 - [place] 1.25 mg/dL [facility] GFR Estimate 26 (L) >60 [place] mL/min/1.[address] Comment: Non GFR Calc GFR Estimate If Black 32 (L) >60 mL/min/1.7m2 F [facility] Comment: GFR Calc Calcium 8.6 8.5 - 10.1 mg/dL [facility] Bilirubin Total 0.5 0.2 - 1.3 mg/dL [facility] Albumin 3.3 (L) 3.4 - 5.0 g/dL [facility] Protein Total 6.9 6.8 - 8.8 g/dL [facility] Alkaline Phosphatase 166 (H) 40 - 150 U/L [facility] ALT 29 0 - 70 U/L [facility] AST 22 0 - 45 U/L [facility] Specimen Anatomical Collection Method Collection Time Receive d Time (Source) Location / / Volume Laterality Blood specimen 05/05/2017 3:20 PM 017 3:31 (specimen) CDT PM CDT Leesa Martinez MD LAB - BLOOD ORDERABLES Performing Organization Address City/State/ZIP Code Phon e Number [facility] [address] [address] [facility] [address] [address], [place] [phone] (ABNORMAL) CBC with platelets differential (05/05/2017 3:20 PM CDT) [facility] gist Method Time Signature WBC 17.7 (H) 4.0 - [place] 11.0 [facility] 10e9/L [facility] RBC Count 4.32 (L) 4.4 - 5.9 [place] 10e12/L [facility] Hemoglobin 14.3 13.3 - [place] 17.7 g/dL [facility] Hematocrit 42.9 40.0 - [place] 53.0 % [facility] MCV 99 78 - 100 [facility] MCH 33.1 (H) 26.5 - [place] 33.0 pg [facility] MCHC 33.3 31.5 - [place] 36.5 g/dL [facility] RDW 13.0 10.0 - [place] 15.0 % [facility] Platelet Count 170 150 - 450 [place] 10e9/L [facility] Diff Method Automated [facility] % Neutrophils 83.6 % [facility] % Lymphocytes 9.3 % [facility] % Monocytes 6.0 % [facility] % Eosinophils 0.7 % [facility] % Basophils 0.1 % [facility] % Immature 0.3 % [place] Granulocytes [facility] Nucleated RBCs 0 0 /100 [facility] Absolute 14.8 (H) 1.6 - 8.3 [place] Neutrophil 10e9/L [facility] Absolute 1.7 0.8 - 5.3 [place] Lymphocytes 10e9/L [facility] Absolute 1.1 0.0 - 1.3 [place] Monocytes 10e9/L [facility] Absolute 0.1 0.0 - 0.7 [place] Eosinophils 10e9/L [facility] Absolute 0.0 0.0 - 0.2 [place] Basophils 10e9/L [facility] Abs Immature 0.1 0 - 0.4 [place] Granulocytes 10e9/L [facility] Absolute 0.0 [place] Nucleated RBC [facility] Specimen Anatomical Collection Method Collection Time Receive d Time (Source) Location / / Volume Laterality Blood specimen 05/05/2017 3:20 PM 017 3:31 (specimen) CDT PM CDT Leesa Martinez MD LAB - BLOOD ORDERABLES Performing Organization Address City/State/ZIP Code Phon e Number [facility] [address] [address] [phone] [facility] [address] [address], [facility] [phone] documented in this encounter Visit Diagnoses Diagnosis [...] foil and gently remove. Place on to [facility] immediately. Administration with liquid unnecessary [...] tablet 1,000 mg 0825 (Given - Provider: Aubrey Morales RN)4358 (Given - Provider: Rosette Reese RN)2537 (Given - Provider: Rosette Reese RN) 0921 (Given - Provider: Aubrey Morales RN)162 (Given - Provider: Joaquina Acosta RN)2210 (Given - Provider: Joaquina Acosta RN) 0914 [...] Rosette Reese RN) 221 (Given - Provider: Joaquina Acosta RN) 5 mg, Oral, AT BEDTIME, First dose on Thu05/08/17 at 2200 Continuous Medication Order 05/10/2017 05/11/2017 05/12/2017 0.45% sodium chloride + KCl 20 mEq/L infusion 0800 (Ra te/Dose Verify - Provider: Aubrey Morales RN)0821 (New Bag - Provider: Aubrye Morales RN)1928 (New Bag - Provider: Rosette Reese RN) 0928 (Rate/Dose Verify - Provider: Aubrey Morales RN)0931 (New Bag - Provider: Aubrey Morales, RN)1629 (Rate/Dose Verify - Provider: Joaquina Acosta, JOSE)1950 (New Bag - Provider: Dulce Stack RN) 0405 (New Bag - Provider: Fela ferguson, RN)0800 (Rate/Dose Verify - Provider: Aubrey Morales, RN) at 100 mL/hr, Intravenous, CONTINUOUS, [...] Irritant.
documented in this encounter Care Teams Granite Polisher Apprentice Relationship Specialty Start Date End Date Eduardo Coleyit PCP - General Family Practice 05/05/17 05/11/[address] [address] [facility] [facility] [place] PCP - General 05/12/17 [address] [place] [address] documented as of this encounter
--- OUTSIDE RECORDS SUMMARY | 2022-05-30 08:47 | XMS_ITS | Encounter Summary ---
:1940 Author Organization [place] Address [address] [place] [address] Care Team Providers Name Role Phone Primary Dr, Dipak WELSH Primary Care Provider Unavailable Celina Coley Primary Care Provider [facility] Primary Care Provider [phone] Jon White MD Unavailable [phone] Ramiro Loco MD Unavailable Gallito Gonzalez [...] documented as of this encounter Care Teams Computer Architect Relationship Specialty Start Date End Date Primary Dr, Dipak, PCP - General 09/21/1204/18 Celina Coley PCP - General Family Practice 05/05/17 05/11/[address] [address] [facility] - General 05/12/[address] [address] Jon White Assigned Surgical Provider 08/10/20 12/08/20 MD Aubrey [address] [place] [address] Ramiro Loco MD Assigned Heart and 08/10/20 05/11/21 [address] Vascular Provider [place] [address] Gallito Gonzalez, Assigned Heart and 09/29/21 Vascular Provider [address] [place] [address] documented as of this encounter
--- OUTSIDE RECORDS SUMMARY | 2022-05-30 08:47 | XMS_ITS | Encounter Summary ---
:1940 Author Organization [place] Address [address] [place] [address] Care Team Providers Name Role Phone Unavailable Primary Care Provider Unavailable Encounter Details Date Type Department Care Team Description 08/05/2012 Telephone [facility] Eag Sal Chaparro DPM [address] [address] [place] [address] [place], [place] [address] (Wo rk) Social History Tobacco [...] outlook. Date/Time: 09/30/2012 @ 12:50 pm Hospital: [facility] Anesthesia: MAC Surgeon: Juana CourtneyPNomanMNoman Preop:Unknown Consent: Hardware removal left foot Surgeon Procedure Time: 30 min Anesthesia: MAC Location: [facility] Pre-Operative Medications: Clindamycin 900 mg IV pre-op Special Instrumentation: Synthes mini locking plate screw airport driver Electronically signed by Sal Chaparro DPM Advised [...]
--- OUTSIDE RECORDS SUMMARY | 2022-05-30 08:47 | XMS_ITS | Encounter Summary ---
:1940 Author Organization [place] Address [address] [place] [address] Care Team Providers Name Role Phone Primary Dr, Unknown MD Primary Care Provider Unavailable Reason for Visit Reason Onset Date Comments Call To Schedule Appointment 10/08/2012 Encounter Details Date Type Department Care Team Description 10/08/2012 Telephone [facility] Sal Engel, Call To Schedule [address] [place] [phone] 1021 [facility] [phone] [facility] [address] [place], [place] [address] (Wo rk) Social History Tobacco Use Types [...] Is scheduled for 10/22/12. Marianne Kim RN MATED EQUIPMENT ENGINEER TECHNICIAN Telephone Encounter - Sal Chaparro DPM - 10/08/2012 10:28 AM AUTOMATED EQUIPMENT ENGINEER TECHNICIAN Marianne, Would recommend F/U appt either Dr. Nesbitt or myself in 2-3 wks. MATED EQUIPMENT ENGINEER TECHNICIAN Telephone Encounter - Brittany Phan - 10/08/2012 10:08 AM CST Pt no showed appt today and you are off next week do you want him to f/u with another provider or see you the following week? MATED EQUIPMENT ENGINEER TECHNICIAN Telephone Encounter - Nelida Davalos - 10/08/2012 7:53 AM CST Patient was told to schedule an appointment two weeks after operation which would be on ThursdayOctober 22. Dr. Chaparro stated he would like to see patient exactly two weeks after operation and to fit him into the schedule. Please contact patient to schedule appointment. Thank you, Nelida [place] [facility] Scheduling MATED EQUIPMENT ENGINEER TECHNICIAN documented in this encounter Plan of Treatment Not on filedocumented as of this encounter Visit Diagnoses Not on filedocumented in this encounter Care Teams Promotions Officer Relationship Specialty Start Date End Date Primary Dipak Kasper MD PCP - General 09/21/1204/18 documented as of this encounter
--- OUTSIDE RECORDS SUMMARY | 2022-05-30 08:47 | XMS_ITS | Encounter Summary ---
:1940 Author Organization [place] Address [address] [place] [address] Care Team Providers Name Role Phone Primary Dr, Unknown MD Primary Care Provider Unavailable Reason for Visit Auth/Cert - Closed Specialty Diagnoses / Procedures Referred By Contact Refer red To Contact Surgery Diagnoses painful internal fixation left foot Rh Periop Services Procedures REMOVE HARDWARE FOOT [address] [place], [place] [address] Fax: Referral ID Status Reason Start Date Expiration Date Visits Requ ested Visits Authorized [id number] Closed 1 1 Encounter Details Date Type Department Care Team Description 09/30/2012 Hospital Encounter [facility] Alvin Trujillo following Andres Castellanos DPM surgery of the PreOP/PostOP [address] [place] musculoskeletal system, [address] [facility] E NEC (Primary Dx) [facility] [address] [place] [address] [phone] Social History Tobacco Use Types Packs/Day Years [...] Comments Blood Pressure 130/79 09/30/2012 2:45 PM TENDERIZER TENDER Pulse - - Temperature 36.2 ??C (97.2 ??F) 09/30/2012 2:45 PM TENDERIZER TENDER Respiratory Rate 16 09/30/2012 2:45 PM TENDERIZER TENDER Oxygen Saturation 98% 09/30/2012 2:45 PM TENDERIZER TENDER Inhaled Oxygen Concentration - - Weight 93 kg (205 lb) 09/30/2012 10:24 AM TENDERIZER TENDER Height 170.2 cm (5' 7) 09/30/2012 10:24 AM TENDERIZER TENDER Body Mass Index 32.11 09/30/2012 10:24 AM TENDERIZER TENDER documented in this encounter Discharge Instructions Discharge [...] DR. SAL TR[facility]O [facility]IN[facility] PHONE NUMBER: [phone]. ERIZER TENDER documented in this encounter Medications at Time [...] Trujillo DPM - 09/23/2012 4:09 PM CST ERIZER TENDER documented in this encounter Nursing Notes Iwona Ruiz RN - 09/30/2012 12:33 PM CST First Panel started at 1210 and ended at 1230. Second panel started at 1230 and ended at 1237. Jen Ruiz RN ERIZER TENDER Iwona Ruiz RN - 09/30/2012 12:22 PM CST Patient did not want his hardware that was removed from procedure on 09/30/[address] Trujillo. Jen Ruiz RN ERIZER TENDER documented in this encounter OR Notes OR Anesthesia - Sal Trujillo DPM - 10/01/2012 9:43 AM CST ERIZER TENDER documented in this encounter Miscellaneous Notes Op [...] DPM MT: EM#[id number] Name: ELDA HENDRICKS Account: [id number] : 1940 Procedure Date: 09/30/2012 Document: [id number] cc: Ramiro Walker MD ERIZER TENDER Brief Op Note - Sal Trujillo DPM - 09/30/2012 1:01 PM CST [facility] Podiatry/Foot and Ankle Surgery Brief Operative Note Pre-operative diagnosis: Painful Internal Fixation left foot Painful recurrence of toenail right great toe Post-operative diagnosis same Procedure: Procedure(s): Hardware Removal left foot - Deep Surgical matrixectomy right great toe Surgeon: SAL TRUJILLO DPM Assistants(s): Anesthesia: MAC Estimated blood loss: 5 cc ERIZER TENDER documented in this encounter Plan of Treatment Not on filedocumented as of this encounter Procedures Procedure Name Priority Date/Time Associated Diagnosis Comme nts XR FOOT PORT LEFT 3 Routine 09/30/2012 1:44 PM Re sults for this VIEWS TENDERIZER TENDER procedure are i n the results section. EXCISION, TOENAIL 09/30/2012 11:41 AM painful internal TENDERIZER TENDER fixation left foot Special Needs 5# Hx MRSA REMOVAL, HARDWARE, FOOT 09/30/2012 11:41 AM TENDERIZER TENDER painfu l internal fixation left foot Special Needs # Hx MRSA EKG 12-LEAD, TRACING ONLY Routine 09/30/2012 11:38 AM TENDERIZER TENDER Results for this procedure are in the resu lts section. HIM ECG SCAN Routine 09/30/2012 documented in this encounter Results X-ray LEFT Foot 3 vw port (09/30/2012 1:44 PM TENDERIZER TENDER) Anatomical Region Laterality Modality Left Foot Left Other Specimen (Source) Anatomical Collection Method Collection Time Re ceived Time Location / / Volume Laterality 09/30/2012 1:44 PM TENDERIZER TENDER Impressions 10/01/2012 10:47 AM TENDERIZER TENDER IMPRESSION: Postoperative and degenerative change. No acute abnormality. ODILON RANDOLPH MD Narrative 10/01/2012 10:47 AM TENDERIZER TENDER LEFT FOOT THREE OR MORE VIEWS PORTABLE [...] EKG 12-lead, tracing only (09/30/2012 11:38 AM TENDERIZER TENDER) Component Value Ref Range Test Analysis Performed Pathologis t Method Time At Signature Ventricular Rate 64 BPM RADIOLOGY RESULTS Atrial Rate 64 BPM RADIOLOGY RESULTS TN Interval 154 ms RADIOLOGY RESULTS QRS Duration 80 ms RADIOLOGY RESULTS QT 410 ms RADIOLOGY RESULTS QTc 422 ms RADIOLOGY RESULTS P [place] -1 degrees RADIOLOGY RESULTS R AXIS -9 degrees RADIOLOGY RESULTS T [place] -7 degrees RADIOLOGY RESULTS Interpretation Sinus rhythm [...] / / Volume Laterality 09/30/2012 11:38 AM TENDERIZER TENDER Doctor Unknown MD ECG ORDERABLES Performing Organization Address City/State/ZIP Code Phon e Number RADIOLOGY RESULTS ECG - HIM ECG Scan (09/30/2012) Narrative This result has an attachment that is no t available. Sal Trujillo DPJami ECG ORDERABLES documented in this encounter Visit Diagnoses Diagnosis Aftercare following surgery of the [facility], NEC - Primary documented in this encounter Administered Medications Inactive Administered Medications - up to 3 most recent administrations Medication Order MAR Action Action Date Dose Rate Site fentaNYL (SUBLIMAZE) injection Given 09/30/2012 2:16 PM TENDERIZER TENDER 50 m cg 25-50 mcg 25-50 mcg, Intravenous, EVERY 2 MIN PRN, other, acute pain, Starting on Yesenia 09/30/12 at 1251, MAX cumulative dose = 250 mcg. Use Fentanyl initially, as a short acting agent for acute pain control. If insufficient, or a longer acting agent is needed, begin Morphine or Hydromorphone if ordered., PACU Given 09/30/2012 1:33 PM TENDERIZER TENDER 50 mcg HYDROcodone-acetaminophen 5-325 MG per Given 09/30/2012 2:16 PM TENDERIZER TENDER 1 tablet tablet 1-2 tablet 1-2 tablet, Oral, ONCE, On Yes[place] 09/30/12 at 1330, For 1 dose, One time prior to discharge., Post-procedure lactated ringers infusion New Bag 09/30/2012 1:33 PM TENDERIZER TENDER 1,000 mLs 100 mL/hr at 100 mL/hr, Intravenous, CONTINUOUS, Continue until IV catheter is weaned, PACU, Starting on Yesenia 09/30/12 at 1300, Until Yesenia 09/30/12 at 1723 documented in this encounter Active and Recently Administered Medications Times are shown in TENDERIZER TENDER. Scheduled Medication Order 09/28/2012 09/29/2012 09/30/2012 HYDROcodone-acetaminophen [...] 1152 (Given - Provider: Lety Guzman, TERESITA CHIEF WARDEN) 900 mg, Intravenous, for 60 Minutes, EMIL [...] Intra-procedure documented in this encounter Care Teams Custom Motorcycle Painter Relationship Specialty Start Date End Date Primary Dipak Kasper MD PCP - General 09/21/1204/18 documented as of this encounter
--- OUTSIDE RECORDS SUMMARY | 2022-05-30 08:47 | XMS_ITS | Encounter Summary ---
:1940 Author Organization [place] Address [address] [place] [address] Care Team Providers Name Role Phone Primary Dr, Unknown MD Primary Care Provider Unavailable Reason for Visit Reason Comments Surgical Followup bilat infections Encounter Details Date Type Department Care Team Description 10/05/[address] [facility] Sal Chaparro [facility] are following Clinic [place] F, DPM surgery of the [address] [place] [address] musculoskeletal system, [place], [place] E NEC (Primary Dx) [id number] [address] [place] [address] [place], [place] [address] Social History Tobacco Use Types [...] Comments Blood Pressure 136/80 10/05/2012 12:04 PM 911 TELECOMMUNICATOR Pulse 60 10/05/2012 12:04 PM 911 TELECOMMUNICATOR Temperature 36.8 ??C (98.2 ??F) 10/05/2012 12:04 PM 911 TELECOMMUNICATOR Respiratory Rate - - Oxygen Saturation - - Inhaled Oxygen Concentration - - Weight 93 kg (205 lb) 10/05/2012 12:04 PM 911 TELECOMMUNICATOR Height 170.2 cm (5' 7) 10/05/2012 12:04 PM 911 TELECOMMUNICATOR Body Mass Index 32.11 10/05/2012 12:04 PM 911 TELECOMMUNICATOR documented in this encounter Progress Notes Sal [...] or concerns and follow-up in 1-2 wks. 911 TELECOMMUNICATOR documented in this encounter Plan of Treatment Not on filedocumented as of this encounter Procedures Procedure Name Priority Date/Time Associated Diagnosis Comme nts CBC WITH PLATELETS & Routine 10/05/2012 12:21 Aftercare follow ing Results for this DIFFERENTIAL PM 911 TELECOMMUNICATOR surgery of the procedure are in musculoskeletal system, the results NEC section. URIC ACID Routine 10/05/2012 12:21 Aftercare following Resu lts for this PM 911 TELECOMMUNICATOR surgery of the procedure are in musculoskeletal system, the results NEC section. BASIC METABOLIC Routine 10/05/2012 12:21 Aftercare following R esults for this PANEL PM 911 TELECOMMUNICATOR surgery of the procedure are in musculoskeletal system, the results NEC section. WOUND CULTURE Routine 10/05/2012 12:20 Aftercare following Res ults for this AEROBIC BACTERIAL PM 911 TELECOMMUNICATOR surgery of the procedur e are in musculoskeletal system, the results NEC section. documented in this encounter Results (ABNORMAL) Basic metabolic panel (Ca, Cl, CO2, Creat, Gluc, K, Na, BUN) (10/05/2012 12:21 PM 911 TELECOMMUNICATOR) Analysis Performed At [facility] logist Time Signature Sodium 140 133 - 144 [place] mmol/L [facility] Potassium 4.8 3.4 - 5.3 [place] mmol/L [facility] Chloride 103 94 - 109 [facility]L [facility] Carbon Dioxide 25 20 - 32 [place] mmol/L [facility] Anion Gap 12 6 - 17 [place] mmol/L [facility] Glucose 108 (H) 60 - 99 [place] mg/dL [facility] Urea Nitrogen 23 7 - 30 [place] mg/dL [facility] Creatinine 1.41 (H) 0.66 - [facility] 1.25 mg/dL [facility] GFR Estimate 50 (L) >60 [place] mL/min/1.7 [facility] m2 LAB GFR Estimate If 60 (L) >60 [place] Black mL/min/1.7 [facility] m2 LAB Calcium 9.5 8.5 - 10.4 [place] mg/dL [facility] Specimen Anatomical Collection Method Collection Time Receive d Time (Source) Location / / Volume Laterality Blood specimen 10/05/2012 12:21 2 (specimen) PM 911 TELECOMMUNICATOR 12:22 PM 911 TELECOMMUNICATOR Sal Chaparro DPM LAB - BLOOD ORDERABLES Performing Organization Address City/State/ZIP Code Phon e Number [facility] [address] [place] [address] [facility] (ABNORMAL) CBC with platelets and differential (10/05/2012 12:21 PM 911 TELECOMMUNICATOR) [facility] gist Method Time Signature WBC 7.8 4.0 - [place] 11.0 [facility] 10e9/L CLINIC LAB RBC Count 4.45 4.4 - 5.9 [place] 10e12/L [facility] Hemoglobin 14.6 13.3 - [facility] 17.7 g/dL [facility] Hematocrit 43.2 40.0 - [facility] 53.0 % [facility] MCV 97 78 - 100 [facility] MCH 32.8 26.5 - [place] 33.0 pg [facility] MCHC 33.8 31.5 - [place] 36.5 g/dL [facility] RDW 12.9 10.0 - [place] 15.0 % [facility] Platelet Count 152 150 - 450 [place] 10e9/L [facility] Diff Method Automated [place] Method [facility] % Neutrophils 62.1 40 - 75 % [facility] % Lymphocytes 18.9 (L) 20 - 48 % [facility] % Monocytes 13.4 (H) 0 - 12 % [facility] % Eosinophils 5.2 0 - 6 % [facility] % Basophils 0.4 0 - 2 % [facility] Absolute 4.9 1.6 - 8.3 [place] Neutrophil 10e9/L [facility] Absolute 1.5 0.8 - 5.3 [place] Lymphocytes 10e9/L [facility] Absolute 1.1 0.0 - 1.3 [place] Monocytes 10e9/L [facility] Absolute 0.4 0.0 - 0.7 [place] Eosinophils 10e9/L [facility] Absolute 0.0 0.0 - 0.2 [place] Basophils 10e9/L [facility] Specimen Anatomical Collection Method Collection Time Receive d Time (Source) Location / / Volume Laterality Blood specimen 10/05/2012 12:21 2 (specimen) PM 911 TELECOMMUNICATOR 12:22 PM 911 TELECOMMUNICATOR Sal Chaparro DPM LAB - BLOOD ORDERABLES Performing Organization Address City/State/ZIP Code Phon e Number [facility] [address] [place] [address] [facility] Uric acid (10/05/2012 12:21 PM 911 TELECOMMUNICATOR) P athologist Signature Uric Acid 7.1 3.5 - 8.5 [place] AMINA mg/dL CLINIC LAB Specimen Anatomical Collection Method Collection Time Receive d Time (Source) Location / / Volume Laterality Blood specimen 10/05/2012 12:21 2 (specimen) PM 911 TELECOMMUNICATOR 12:22 PM 911 TELECOMMUNICATOR Sal Chaparro DPJami LAB - BLOOD ORDERABLES Performing Organization Address City/State/ZIP Code Phon e Number [facility] [address] [place] [address] [facility] Wound culture (10/05/2012 12:20 PM 911 TELECOMMUNICATOR) [facility] Method Time Signature Specimen Other [facility] [place] [facility] Culture Micro No growth [facility] MICROBIOLOGY Micro Report FINAL [facility] Status 10/07/2012 MICROBIOLOGY Specimen Anatomical Collection Method Collection Time Receive d Time (Source) Location / / Volume Laterality Specimen from 10/05/2012 12:20 10/05/2012 wound (specimen) PM 911 TELECOMMUNICATOR 12:41 PM CS T Sal Chaparro DPM LAB - MICRO GENERAL ORDERABL ES Performing Organization Address City/State/ZIP Code Phon e Number [facility] [address] [place] [address] [facility] MICROBIOLOGY documented in this encounter Visit Diagnoses Diagnosis Aftercare [facility], NEC - Primary documented in this encounter Care Teams Metal Smelter Relationship Specialty Start Date End Date Primary Dipak Kasper MD PCP - General 09/21/1204/18 documented as of this encounter
--- OUTSIDE RECORDS SUMMARY | 2022-05-30 08:47 | XMS_ITS | Encounter Summary ---
:1940 Author Organization [place] Address [address] [place] [address] Care Team Providers Name Role Phone Celina Coley Primary Care Provider Reason for Visit Auth/Cert Specialty Diagnoses / Procedures Referred By Contact Refer red To Contact Intensive Care Diagnoses Opioid overdose, accidental or unintentional, initial encounter (H) Aspiration pneumonia, unspecified aspiration pneumonia type, unspecified laterality, unspecified part of lung (H) Unresponsiveness Intensive Care [address] [place] [address] Phone: Referral ID Status Reason Start Date Expiration Date Visits Requ ested Visits Authorized [id number] 1 1 Encounter Details Date Type Department Care Team Description 05/06/2017 Anesthesia Event M [facility] MEDICINE TEACHER DRY CLEANING MANAGER [address] [place] [address] ANES [phone] [place] [id number] (Wo rk) Anesthesia Record Procedure Summary Procedure Name Responsible Anesthesiologist Anesthesia Start Ti me Anesthesia Stop Time IV START 05/06/17212005/06/172140 Events Date Time Event Comment 05/06/20172120 An Start 2140 Quick Note Diagnosis: Venou s Insufficiency Procedure: IV Start Ordering Yadirai an: Dr Rodriguez Location:[facility] ICU 357 2141 An Stop Electronically s [...] RN Darby, Timo thy J, (difficulty standing, MEDICINE TEACHER HOUSEKEEPER HOME alerted mental status) Peripheral IV 05/06/17; 2135; 20 G; 05/06/17 2135 by 05/08/17 0300 by Right; Lower forearm; Albino Benavidez APRN Graa lum, Scott, RN Alcohol; Injectable; DRY CLEANING MANAGER Tolerated well Peripheral IV 05/06/17; 2140; 20 G; 05/06/17 2140 by 05/08/17 1619 by Right; Upper forearm; Albino Benavidez APRN With am Rosette Alcohol; Injectable; DRY CLEANING MANAGER JOSE Clifton Tolerated well documented in this [...] on filedocumented in this encounter Care Teams Electronics Assembler Relationship Specialty Start Date End Date Celina Coley PCP - General Family Practice 05/05/17 05/11/[address] [address] documented as of this encounter
--- OUTSIDE RECORDS SUMMARY | 2022-05-30 08:47 | XMS_ITS | Encounter Summary ---
:1940 Author Organization [facility] Address [address] [place] [address] Care Team Providers Name Role Phone Primary DrDipak MD Primary Care Provider Unavailable Celina Coley Primary Care Provider [facility] [place] Primary Care Provider [phone] Jon White MD Unavailable [phone] Ramiro Loco MD Unavailable Encounter Details Date Type Department Care Team Description 05/02/2014 Anesthesia - [facility] Zotlan Arizmendi MD [address] [place] [address] [id number] Social History Tobacco Use Types Packs/Day [...] documented as of this encounter Care Teams Zinc Skimmer Relationship Specialty Start Date End Date Primary Dipak Kasper MD PCP - General 09/21/1204/18 Celina Coley PCP - General Family Practice 05/05/17 05/11/[address] [address] Kehinde Portillo PCP - General 05/12/[address] [address] Jon White Assigned Surgical Provider 08/10/20 12/08/20 MD Aubrey [address] [place] [address] Ramiro Loco MD Assigned Heart and 08/10/20 05/11/21 [address] [place] [address] Vascular Provider [place] [address] documented as of this encounter
--- OUTSIDE RECORDS SUMMARY | 2022-05-30 08:47 | XMS_ITS | Encounter Summary ---
:1940 Author Organization [place] Address [address] [place] [address] Care Team Providers Name Role Phone Unavailable Primary Care Provider Unavailable Reason for Visit Reason Comments Surgical Followup 02/06/11 post op left foot wi th hardware. pt is having pain. Encounter Details Date Type Department Care Team Description 07/30/2012 Office Visit [facility]3] Sal Chaparro pa in (Primary Dx); Yariel Castellanos DPM Enthesopathy of unspecified site [address] [place] [address] E [phone] [facility] [address] [place], [place] [address] Social History Tobacco Use Types [...] Procedure Time: 30 min Anesthesia: MAC Location: [facility] Pre-Operative Medications: Clindamycin 900 mg IV pre-op Special Instrumentation: Synthes mini locking plate screw driver salesman documented in this encounter Nursing Notes 07/30/2012 [...] rew fixation device. Small plantar calcaneal spur. Sal Chaparro DPM IMG DIAGNOSTIC IMAGING ORDER BRAYDEN documented in this encounter Visit Diagnoses Diagnosis Foot pain - Primary Pain in limb Enthesopathy of unspecified site documented in this encounter
--- OUTSIDE RECORDS SUMMARY | 2022-05-30 08:47 | XMS_ITS | Encounter Summary ---
:1940 Author Organization [place] Address [address] [place] [address] Care Team Providers Name Role Phone Primary DrDipak MD Primary Care Provider Unavailable Celina Coley Primary Care Provider [facility] [place] Primary Care Provider [phone] Jon White MD Unavailable [phone] Ramiro Loco MD Unavailable Encounter Details Date Type Department Care Team Description 11/29/2014 Surgery - [facility] [place], [facility] OR [facility] [address] [place] [address] [address] [phone] [place] [address] [phone] (Wo rk) Social History Tobacco Use Types [...] 90.7 kg (200 lb) 11/29/2014 9:33 AM CRACKER SPRAYER Height 180.3 cm (5' 11) 11/29/2014 9:33 AM CRACKER SPRAYER Body Mass Index 27.89 11/29/2014 9:33 AM CRACKER SPRAYER documented in this encounter Plan of Treatment Not on filedocumented as of this encounter Visit Diagnoses Not on filedocumented in this encounter Additional Health Concerns Infection Onset Date Last Indicated Resolved Time MRSAComment: Positive 02/17/11 and 09/22/12 11/05/2018 019 Negatives 05/03/14 (HE), 12/01/14 (HE) documented as of this encounter Care Teams [place]t Relationship Specialty Start Date End Date Primary Dipak Kasper MD PCP - General 09/21/1204/18 Celina Coley PCP - General Family Practice 05/05/17 05/11/[address] [address] [facility] P[facility] - General 05/12/[address] [address] Jon White Assigned Surgical Provider 08/10/20 12/08/20 MD Aubrey [address] [place] [address] Ramiro Loco MD Assigned Heart and 08/10/20 05/11/21 [address] [place] [address] Vascular Provider [place] [address] documented as of this encounter
--- OUTSIDE RECORDS SUMMARY | 2022-05-30 08:47 | XMS_ITS | Encounter Summary ---
:1940 Author Organization [place] Address [address] [place] [address] Care Team Providers Name Role Phone Primary Dr, Unknown MD Primary Care Provider Unavailable Reason for Visit Reason Comments Back Pain Leg Pain Encounter Details Date Type Department Care Team Description [facility] [address] [place] [address] Acute low back pain 04/30/2017 Encounter [facility] Dilshad John MD [address] [place] [address] due to trauma [address] Provider, Historical [address] [place] [phone] Social History Tobacco Use Types Packs/Day Years [...] John MD - 04/30/2017 2:09 PM CDT [facility] MEDICINE DISCHARGE SUMMARY Primary Care Physician: [...] COURSE: Nondisplaced insufficiency type sacral fractures - [facility], patient of Dr Mcclure and his injury was described to him -no surgery inidcated - IV dilaudid. He also does ok with oral oxycodone and Tecumseh - taper off IV opioids and optimize [...] MULTIVITAMIN Tab Dose: 1 tablet Generic drug: multivitamin,ih-agqw-jyzvrbdw 1 tablet, Oral, DAILY desonide 0.05 % [...] in 2-3 weeks or as needed at [facility]. Call our scheduling line at [phone] to make an appointment if you do [...] Comments Follow-up in: Within 7 days [facility] follow-up appointment Follow-up appointment with Primary Care [...] EMR for more detailed significant labs, imaging, business sales consultant notes etc. Total time spent on [...] Ca Plunkett - 04/30/2017 12:19 PM CDT CONTESTANT COORDINATOR TREATMENT NOTE Name: Speedy Hendricks : 1940 [...] much better. Daughter will transport. TANJA Rodríguez AIR DEODORIZER SERVICER 04/30/2017 Rae Campo PA-C - 04/29/2017 4:26 [...] Plans: Nondisplaced insufficiency type sacral fractures - [facility] consult, patient of Dr Mcclure and his injury was described to him -no surgery inidcated - IV dilaudid. He also does ok with oral oxycodone and Tecumseh - taper off IV opioids and optimize [...] Lumbar Spine Without Contrast Result Date: 04/29/2017 [facility] MR LUMBAR SPINE WO CONTRAST 04/28/2017 2:12 [...] right neural foraminal stenosis. Dilshad John MD [facility] Hospitalist Jeanette Santana, [facility] - 04/28/2017 8:59 AM CDT Pharmacy Note - Admission Medication History Pertinent Provider Information: n/a Prior To Admission (SIPHON OPERATOR) med list completed and updated in EMR. SIPHON OPERATOR Med List Medication Sig Note Last Dose [...] day. 04/27/2017 at just started 04/27 ??? multivitamin,hp-estl-ocwhwqkq (COMPLETE MULTIVITAMIN) Tab Take 1 tablet by mouth daily. Past Week at Unknown time ??? pramipexole (MIRAPEX) 0.5 MG tablet Take 0.5 mg by mouth at bedtime. 04/26/2017 ??? terazosin (HYTRIN) 5 MG capsule Take 5 mg by mouth at bedtime. 04/26/2017 ??? [DISCONTINUED] acetaminophen (TYLENOL ARTHRITIS PAIN) 650 MG CR tablet Take by mouth. 04/28/2017:[facility] Received Sig: Takes 1 tablet as needed. ??? [DISCONTINUED] atorvastatin (LIPITOR) 40 MG tablet Take 40 mg by mouth. 04/28/2017: [facility]: [facility] Received Sig: Take 1 tablet by mouth once daily. ??? [DISCONTINUED] desonide (DESOWEN) 0.05 % lotion Apply topically. 04/28/2017: Received from: [facility] Received Sig: Apply topically to affected area(s) 2 timesdaily. ??? [DISCONTINUED] diclofenac (VOLTAREN) 75 MG EC tablet Take 75 mg by mouth. 04/28/2017: Received from: [facility] Received Sig: Take 1 tablet by mouth 2 times daily with meals. ??? [DISCONTINUED] diflorasone (PSORCON) 0.05 % ointment Apply topically. 04/28/2017: Received from: [facility] Received Sig: Apply topically to affected area(s) once daily. ??? [DISCONTINUED] gabapentin (NEURONTIN) 300 MG capsule Start 1 pill QHS, increase up to TID prn 04/28/2017: Received from: [facility] ??? [DISCONTINUED] HYDROcodone-acetaminophen (NORCO) 7.5-325 mg per tablet Take 1 tablet by mouth. 04/28/2017: Received from: [facility] Received Sig: Take 1 tabletby mouth every 4 hours if needed for Pain May take 1.5 every 4 hours for severe pain ??? [DISCONTINUED] metoprolol tartrate (LOPRESSOR) 50 MG tablet Take 50 mg by mouth. 04/28/2017: Received from: [facility] Received Sig: Take 1 tablet by mouth 2 times daily. ??? [DISCONTINUED] miSOPROStol (CYTOTEC) 200 MCG tablet Take 200 mcg by mouth. 04/28/2017: Received from: [facility] Received Sig: Take 1 tablet by mouth 2 times daily with meals. ??? [DISCONTINUED] morphine (MS CONTIN) 15 MG 12 hr tablet Take 15 mg by mouth. 04/28/2017: Received from: [facility] Received Sig: Take 1 tablet by mouth 2 times daily ??? [DISCONTINUED] multivitamin (ONE A DAY) per tablet Take by mouth. 04/28/2017: Received from: [facility] Received Sig: take 1 tablet by oral route once daily with food ??? [DISCONTINUED] pramipexole (MIRAPEX) 0.5 MG tablet Take 0.5 mg by mouth. 04/28/2017: [facility] Received Sig: Take 1 tablet by mouth at bedtime. ??? [DISCONTINUED] terazosin (HYTRIN) 5 MG capsule Take 5 mg by mouth. 04/28/2017: [facility] Received Sig: Take 1 capsule by mouth at bedtime. Information source(s): Patient Summary of Changes to SIPHON OPERATOR Med List New: dulcolax, calcium +d Discontinued: none Changed: diclofenac to qday; misoprostol to qday; mirapex to qhs; Patient was asked about OTC/herbal products specifically. SIPHON OPERATOR med list reflects this. Based on the pharmacist???s assessment, the SIPHON OPERATOR med list information appears reliable Patient appears compliant: Yes Allergies were reviewed, assessed, and updated with the patient. Medications currently not available for use during hospital stay. Family/Patient sales representative business courses states they will bring topicals to [facility]. Thank you for the opportunity to participate [...] point he can't function at home. - [facility] consult, patient of Dr Mcclure - YEVGENIY dilaudid. He also does ok with oral oxycodone and Tecumseh - NPO, IVMF -Also has ordered for [...] care. Talked to patient. Dilshad John MD [facility] Hospitalist documented in this encounter H&P Notes Mili Monet MD - 04/28/2017 2:30 AM CDT Admission History and Physical Speedy HendricksSHREYA 1940, [facility] Prd Acute low back pain due to trauma [M54.5] PCP: Kannan Nieto MD, Code status: Full Code Extended Emergency Contact Information Primary Emergency Contact: Sania Hendricks [address]: [address] [place] [address] Mobile Relation: Spouse Secondary Emergency Contact: Chastity Hendricks [facility] Mobile Relation: Child Date of Service: 04/28/2017 [...] point he can't function at home. - [facility] consult, patient of Dr Mcclure - IV dilaudid. He also does ok with oral oxycodone and Tecumseh - NPO, IVMF - Consider steroid but [...] not show any fracture. He was prescribed Tecumseh. The pain did not improve. Patient saw [...] L3-4 ; Surgeon: Hang Mcclure MD; Location: [facility]; Service: ??? TONSILLECTOMY Allergies Reviewed by myself [...] mouth 2 (two) times a day. ??? multivitamin,zr-ltpy-wrkanigw (COMPLETE MULTIVITAMIN) Tab Take by mouth. ??? [...] Social History Narrative He severed in the [place]. 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 Family History Reviewed by myself with [...] COMPATIBLE Unit Type O Pos Unit Number [id number] Status Released Component Red Blood Cells PRODUCT CODE [id number] Crossmatch Result Value Ref Range Crossmatch COMPATIBLE Unit Type O Pos Unit Number [id number] Status Released Component Red Blood Cells PRODUCT CODE [id number] Creatinine Result Value Ref Range Creatinine 1.34 (H) 0.70 - 1.30 mg/dL GFR MDRD Af Amer >60 >60 mL/min/1.73m2 GFR MDRD Non Af Amer 52 (L) >60 mL/min/1.73m2 Antibody Identification Result Value Ref Range Antibody ID > 3hr for more blood;Anti-[place] No new imaging obtained EKG: Normal sinus rhythm rate 62 bpm. No previous tracing for comparison Pertinent Labs/EKG/XRAY Reviewed Social History, Family History, PMH, PSH, Medications and Allergies reviewed. Total time: 70 minutes with >50% time spent with coordination of care and counseling reviewing plan of care with patient and family 04/28/2017 Mili Monet MD [facility] Medicine Service documented in this encounter Consult Notes Rae Campo PA-C - 04/28/2017 12:49 PM CDT ORTHOPEDIC CONSULTATION Consultation Speedy HendricksSHREYA 1940, [facility] Prd Acute low back pain due to trauma [M54.5] PCP: Kannan Nieto MD, Code status: Full Code Extended Emergency Contact Information Primary Emergency Contact: Sania Hendricks Address: [address] [place], [place] [id number] [facility] Mobile Relation: Spouse Secondary Emergency Contact: Chastity Hendricks [facility] Mobile Relation: Child CHIEF COMPLAINT: Acute low [...] scan ordered which he had done at [facility]. He was scheduled to see Dr. Mcclure [...] day. 04/27/2017 at just started 04/27 ??? multivitamin,bd-dxch-pgdvxsit (COMPLETE MULTIVITAMIN) Tab Take 1 tablet by [...] Mcclure and Dr. Burger, on-call surgeon for [facility] and they are in agreement with [...] follow this patient. Thank you for including [facility] in the care of Speedy Hendricks. [...] behalf by Jhon Park, a trained medical transcription supervisor. The creation of this record is based [...] l stenosis. Narrative 04/29/2017 9:20 AM CDT [facility] MR LUMBAR SPINE WO CONTRAST 04/28/2017 2:12 [...] note might be different from the original. [facility] MR LUMBAR SPINE WO CONTRAST 04/28/2017 2:12 [...] 12-lead, tracing only (04/28/2017 2:05 AM CDT) [facility] Method Time Signature Systolic Blood 184 mmHg 04/28/2017 HE RADIANT Pressure 8:51 AM CDT CONVERSION Diastolic Blood 98 mmHg 04/28/2017 HE RADIANT Pressure 8:51 AM CDT CONVERSION Ventricular Rate 60 BPM 04/28/2017 HE RADIANT 8:51 AM CDT CONVERSION Atrial Rate 60 BPM 04/28/2017 HE RADIANT 8:51 AM CDT CONVERSION PA Interval 160 ms 04/28/2017 HE RADIANT 8:51 AM CDT CONVERSION QRS Duration 88 ms 04/28/2017 HE RADIANT 8:51 AM CDT CONVERSION QT 432 ms 04/28/2017 HE RADIANT 8:51 AM CDT CONVERSION QTc 432 ms 04/28/2017 HE RADIANT 8:51 AM CDT CONVERSION P [place] 16 degrees 04/28/2017 HE RADIANT 8:51 AM CDT CONVERSION R AXIS 16 degrees 04/28/2017 HE RADIANT 8:51 AM CDT CONVERSION T [place] 19 degrees 04/28/2017 HE RADIANT 8:51 AM CDT CONVERSION Interpretation Normal sinus rhythm 04/28/2017 HE R ADIANT ECG Normal ECG 8:51 AM CDT CONVERSION No previous ECGs available Confirmed by VEL ??SUKHJINDER WELSH LOC:JN ([id number]) on 04/28/2017 8:5 1:37 AM Specimen Anatomical [...] Lumbago documented in this encounter Care Teams Technical Agronomist Relationship Specialty Start Date End Date Primary Dipak Kasper MD PCP - General 09/21/1204/18 documented as of this encounter
--- OUTSIDE RECORDS SUMMARY | 2022-05-30 08:47 | XMS_ITS | Encounter Summary ---
:1940 Author Organization [place] Address [address] [place] [address] Care Team Providers Name Role Phone Primary DrDipak MD Primary Care Provider Unavailable Celina Coley Primary Care Provider [facility] Primary Care Provider [phone] Jon White MD Unavailable [phone] Ramiro Loco MD Unavailable Gallito Gonzalez MD Unavailable Encounter Details Date Type Department Care Team Description 05/02/2014 Records - [facility] Cheryl Enriquez RN [address] [phone] Social History Tobacco Use Types [...] weeks for routine followup. Isra Fregoso M.D. [facility] Mattie Urrutia - 05/04/2014 3:42 PM [...] - 05/07/2014 12:18 PM CDT Confirmed with [facility] acceptance of pt for PT and OT. Notified pt of [facility] PT and OT acceptance and informed pt and daughter agency will be contacting pt on Thursday, 05/08, to schedule appointment. MARIELA Dillon, [facility] Clinical Social Work Community Youth Secretary Luciano León - 05/07/2014 11:25 AM CDT [facility] Daily Progress Note Assessment/Plan: 1. Hypertension. [...] resolved, no tenderness or swelling. Isra Fregoso [facility] Date: 05/07/2014 Time: 10:42 AM Historical Provider - 05/06/2014 1:16 PM CDT [facility] met with pt re home health care services. Pt requested [facility] for PT and OT. [facility] contacted [facility] at [phone] making referral to this agency. Fax no is [phone]. [facility] will follow pt to discharge. Rita Urbina, AIRPORT SHUTTLE DRIVER, [facility] Clinical Social Work Care Managedr Low Ramirez - 05/06/2014 12:12 PM CDT CYBER THREAT ANALYST TREATMENT NOTE Name: Speedy Hendricks : 1940 Acupuncture Treatment Patient Type: Orthopedic Intervention Reason: Pain Pre-session Pain ratin Post-session Pain ratin Patient complaint:: (R) foot pain Acupunture (Points):: Du 20, Yin watts, (R) Gb 20, (R) St 34, 36, (R) Sp 8, (R) Si 4 Low Ramirez L.Ac. Date: 05/06/2014 Time: 12:12 PM Luciano León - 05/06/2014 11:44 AM CDT [facility] Daily Progress Note Assessment/Plan: 1. Hypertension. [...] to weight bear, equivocal SLR. Isra Fregoso [facility] Date: 05/06/2014 Time: 11:15 AM Lexie [...] Thank you for the consult. Eri Bah [facility] 05/05/2014 4:46 PM Ca Plunkett - 05/05/2014 3:50 PM CDT CYBER THREAT ANALYST TREATMENT NOTE Name: Speedy Hendricks : 1940 [...] León S - 05/04/2014 2:20 PM CDT [facility] Daily Progress Note Assessment/Plan: 1. Hypertension. [...] Care Management should needs arise. Cedric Borrego, AIRPORT SHUTTLE DRIVER, REVIEW RN Lety Dickerson RN - 05/04/2014 12:00 PM [...] Luciano León - 05/03/2014 12:31 PM CDT [facility] Daily Progress Note Assessment/Plan: 1. Hypertension. [...] swab prior to antibiotic . Per J. Bulloch/ClFern RN documented in this encounter H&P Notes [...] Revision L4 laminotomy. SURGEON: Dr. Tin Mcclure. BUSINESS RISK CONSULTANT: Mahesh Rodgers PA-C, who was needed for [...] was seen in the preop area of [facility] today, 05/03/2014. The low back was [...] the next 6 weeks. HANG MCCLURE MD [facility] D 05/03/2014 09:21:55 T 05/03/2014 12:31:48 R 05/03/2014 12:31:48 [id number] cc:LUCIANO GUERRA MD documented in this encounter [...] are negative for DVT. Luciano León MD [facility] US ORDERABLES XR Foot Port Right 3 [...] evidence for acute fracture. Luciano León MD [facility] DIAGNOSTIC IMAGING ORDER [place]DEN XR Ankle Port [...] changes in cervical spine. Misha Weaver MD [facility] DIAGNOSTIC IMAGING ORDER [place]DEN XR Lumbar Spine [...] level of L4 pedicle. Hang Mcclure MD [facility] DIAGNOSTIC IMAGING ORDER [place]DEN XR Surgery CHRIS [...] documented as of this encounter Care Teams Tow Motor Driver Relationship Specialty Start Date End Date Primary DrDipak MD PCP - General 09/21/1204/18 Celina Coley PCP - General Family Practice 05/05/17 05/11/[address] [address] Kehinde Portillo PCP - General 05/12/[address] [address] Jon White Assigned Surgical Provider 08/10/20 12/08/20 MD [address] [place] [address] Ramiro Loco MD Assigned Heart and 08/10/20 05/11/21 [address] Vascular Provider [place] [address] Gallito Gonzalez, Assigned Heart and 09/29/21 MD Vascular Provider [address] [place] [address] documented as of this encounter
--- OUTSIDE RECORDS SUMMARY | 2022-05-30 08:47 | XMS_ITS | Encounter Summary ---
:1940 Author Organization [place] Address [address] [place] [address] Care Team Providers Name Role Phone Primary Dr, Unknown MD Primary Care Provider Unavailable Reason for Visit Reason Comments Surgical Followup bilateral post op Encounter Details Date Type Department Care Team Description 10/22/2012 Office Visit [facility] Sal Chaparro re following Yariel Castellanos DPJami surgery of the [address] [place] [address] musculoskeletal system, [place] [address] E NEC (Primary Dx) [phone] [address] [place], [place] [address] Social History Tobacco Use Types [...] 93 kg (205 lb) 10/22/2012 9:14 AM DIVINITY TEACHER Height 170.2 cm (5' 7) 10/22/2012 9:14 AM DIVINITY TEACHER Body Mass Index 32.11 10/22/2012 9:14 AM DIVINITY TEACHER documented in this encounter Progress Notes Sal [...] questions or concerns and follow-up in prn. NITY TEACHER documented in this encounter Nursing Notes 10/22/2012 9:00 AM CST >> MELL MAGANA Fri Oct 22, 2012 9:14 AM Patient presents with: Surgical Followup - bilateral post op Mell Magana CMA documented in this encounter Plan of Treatment Not on filedocumented as of this encounter Visit Diagnoses Diagnosis Aftercare following surgery of the [facility] loskeletal system, NEC - Primary documented in this encounter Care Teams Tie Knitter Helper Relationship Specialty Start Date End Date Primary Dipak Kasper MD PCP - General 09/21/1204/18 documented as of this encounter
--- OUTSIDE RECORDS SUMMARY | 2022-05-30 08:47 | XMS_ITS | Encounter Summary ---
:1940 Author Organization [place] Address [address] [place] [address] Care Team Providers Name Role Phone Primary Dr, Unknown MD Primary Care Provider Unavailable Reason for Visit Reason Onset Date Comments Appointment 10/30/2016 Encounter Details Date Type Department Care Team Description 10/30/2016 Telephone [facility] Jon White, Appointment Laredojuly Coppola MD [address] [place] [address] [phone] [place] [address] (Wo rk) Social History Tobacco [...] before procedure. Pt's daughter will accompany him. ING INSPECTOR Telephone Encounter - Lisa Diaz RN - 10/30/2016 2:33 PM CST Left detailed message for pt' daughter explaining patient can have MOHS done next week in order to save himself an extra trip or they can just come in and have consult 1st. ING INSPECTOR Telephone Encounter - Aruna Rodriguez - 10/30/2016 8:14 AM CST Patient's daughter would like clarification as to whether Mr. Hendricks is having Mohs surgery rather than consult only - as it's scheduled @ 10:45. Please advise Raquel. ING INSPECTOR documented in this encounter Plan of Treatment Not on filedocumented as of this encounter Visit Diagnoses Not on filedocumented in this encounter Care Teams Marketing Associate Relationship Specialty Start Date End Date Primary Dipak Kasper MD PCP - General 09/21/1204/18 documented as of this encounter
--- OUTSIDE RECORDS SUMMARY | 2022-05-30 08:47 | XMS_ITS | Encounter Summary ---
:1940 Author Organization [place] Address [address] [place] [address] Care Team Providers Name Role Phone Primary Dr, Unknown Primary Care Provider Unavailable Reason for Visit Reason Onset Date Comments Referral 10/16/2016 [facility] Encounter Details Date Type Department Care Team Description 10/16/2016 Telephone [facility] Jon White Referral ([facility]) [facility] [address] [place] [address] [phone] [place], [place] [phone] (Wo rk) Social History Tobacco Use Types [...] get Valium before procedure and will have mule driver with him. MOHS at 10 45 am. RUMENT REPAIR SPECIALIST Telephone Encounter - Aruna Rodriguez - 10/16/2016 3:11 PM CST Pt returned RN (Lisa) phone call. Please call again Thursday10/17/16. 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 Pt has appt at 10 45 pm on for second opinion on skin cancer and questions. Left message for pt to clarify whether heis planning to come in for MOHS appt or just regular appt. RUMENT REPAIR SPECIALIST documented in this encounter Plan of Treatment Not on filedocumented as of this encounter Visit Diagnoses Not on filedocumented in this encounter Care Teams Field Producer Relationship Specialty Start Date End Date Primary Dipak Kasper MD PCP - General 09/21/1204/18 documented as of this encounter
--- OUTSIDE RECORDS SUMMARY | 2022-05-30 08:47 | XMS_ITS | Encounter Summary ---
:1940 Author Organization [place] Address [address] [place] [address]. [place] [address] Care Team Providers Name Role Phone Primary Dr, Unknown MD Primary Care Provider Unavailable Encounter Details Date Type Department Care Team Description 09/30/2012 Anesthesia Event [facility] Viraj Silva PeriOp Letty Tejeda MD [address] [place] [address] [address] [place] [address] [place], [place] [address] (Wo rk) Anesthesia Record [...] Type Details Placement Removal Peripheral IV 09/30/12; (JIG AND FIXTURE REPAIRER); 20 09/30/12 0000 by 09/30/12 14 45 [...] OR Notes Anesthesia Postprocedure Evaluation - Damian Sivla MD - 09/30/2012 3:02 PM CST Anesthesia [...] 97.00%. Additional Comments: Doing Well. Euvolemic. AKollitzMD ER/GUIDE Anesthesia Preprocedure Evaluation - Damian Silva MD [...] benefits and alternatives discussed with: patient or software sales representative. Possibility of blood products discussed. History & Physical Review History and physical reviewed; no interval change. . ER/GUIDE documented in this encounter Miscellaneous Notes Anesthesia Care Transfer Note - Lety Guzman APRN CRNA - 09/30/2012 12:47 PM CST Anesthesia Care Transfer Note Patient: Speedy Hendricks Transferred to: Phase II Patient vital signs: stable Airway: none To phase 2. criteria met. ER/GUIDE documented in this encounter Plan of Treatment Not on filedocumented as of this encounter Visit Diagnoses Not on filedocumented in this encounter Administered Medications Inactive Administered Medications - up to 3 most recent administrations Medication Order MAR Action Action Date Dose Rate Site clindamycin (CLEOCIN) IVPB 900 mg Given 09/30/2012 11:52 AM DRIVER/GUIDE 900 mg Routine, 900 mg, Intravenous, EVERY 6 HOURS PRN, Starting on Yesenia 09/30/12 at 1034, Intra-Op Dose. Give every 6 hours while patient in surgery, starting 6 hours after pre-op dose. DO NOT GIVE intra-op dose if CrCl < 10 mL/min (on dialysis). If CrCL < 50 mL/min, double the time interval between doses., Pre-procedure fentaNYL (SUBLIMAZE) injection Given 09/30/2012 12:15 PM DRIVER/GUIDE 50 mcg PRN, moderate to severe pain, Starting on Yesenia 09/30/12 at 1215, Anesthesia Intra-op lactated ringers infusion New Bag 09/30/2012 11:39 AM DRIVER/GUIDE mL Intravenous, CONTINUOUS PRN, Anesthesia Intra-op, Starting on Yesenia 09/30/12 at 1139, Until Yesenia 09/30/12 at 1248 midazolam (VERSED) injection Given 09/30/2012 11:54 AM DRIVER/GUIDE 2 mg PRN, anxiety, Starting on Yesenia 09/30/12 at 1145, Anesthesia Intra-op Given 09/30/2012 11:45 AM DRIVER/GUIDE 2 mg propofol (DIPRIVAN) Rate/Dose 09/30/2012 12:11 20 mcg/kg/min 11.2 mL /hr injection Change PM DRIVER/GUIDE CONTINUOUS PRN, Starting on Yesenia 09/30/12 at 1202, Anesthesia Intra-op Rate/Dose Change 09/30/2012 12:04 PM DRIVER/GUIDE 10 mcg/kg/min 5.6 mL/hr New Bag 09/30/2012 12:02 PM DRIVER/GUIDE 55 mcg/kg/min 30.7 mL/hr documented in this encounter Care Teams Engineering Laboratory Technician Relationship Specialty Start Date End Date Primary Dipak Kasper, PCP - General 09/21/1204/18 documented as of this encounter
--- OUTSIDE RECORDS SUMMARY | 2022-05-30 08:47 | XMS_ITS | Encounter Summary ---
:1940 Author Organization [place] Address [address] [place] [address] Care Team Providers Name Role Phone Primary Dr, Unknown MD Primary Care Provider Unavailable Reason for Visit Auth/Cert - Closed Specialty Diagnoses / Procedures Referred By Contact Refer red To Contact Surgery Diagnoses painful internal fixation left foot Rh Periop Services Procedures REMOVE HARDWARE FOOT [address] [place], [place] [address] Fax: Referral ID Status Reason Start Date Expiration Date Visits Requ ested Visits Authorized [id number] Closed 1 1 Encounter Details Date Type Department Care Team Description 09/30/2012 Surgery [facility] Daniel Trujillo har dware removel left [place] PeriOp Servic es DPM foot [address] [facility] [place] [phone] [place] [address] (Wo rk) Surgery Details Date/Time Status Location [...] Comments Blood Pressure 137/81 09/30/2012 10:30 AM WIRE COMMUNICATIONS ENGINEER Pulse - - Temperature 35.9 ??C (96.6 ??F) 09/30/2012 10:24 AM WIRE COMMUNICATIONS ENGINEER Respiratory Rate 20 09/30/2012 10:24 AM WIRE COMMUNICATIONS ENGINEER Oxygen Saturation 98% 09/30/2012 10:24 AM WIRE COMMUNICATIONS ENGINEER Inhaled Oxygen Concentration - - Weight 93 kg (205 lb) 09/30/2012 10:24 AM WIRE COMMUNICATIONS ENGINEER Height 170.2 cm (5' 7) 09/30/2012 10:24 AM WIRE COMMUNICATIONS ENGINEER Body Mass Index 32.11 09/30/2012 10:24 AM WIRE COMMUNICATIONS ENGINEER documented in this encounter Discharge Instructions Discharge [...] DR. DANIEL TRUJILLO M.D. CLINIC PHONE NUMBER: [phone]. COMMUNICATIONS ENGINEER documented in this encounter Medications at [...] Trujillo DPM - 09/23/2012 4:09 PM CST COMMUNICATIONS ENGINEER documented in this encounter Nursing Notes Iwona Ruiz RN - 09/30/2012 12:33 PM CST First Panel started at 1210 and ended at 1230. Second panel started at 1230 and ended at 1237. Jen Ruiz RN COMMUNICATIONS ENGINEER Iwona Ruiz RN - 09/30/2012 12:22 PM CST Patient did not want his hardware that was removed from procedure on 09/30/[address] Trujillo. Jen Ruiz RN COMMUNICATIONS ENGINEER documented in this encounter OR Notes OR Anesthesia - Daniel Trujillo DPM - 10/01/2012 9:43 AM CST COMMUNICATIONS ENGINEER documented in this encounter Miscellaneous Notes [...] DPM MT: [id number] Name: ELDA HENDRICKS Account: [id number] : 1940 Procedure Date: 09/30/2012 Document: [id number] cc: Ramiro Wlaker MD COMMUNICATIONS ENGINEER Brief Op Note - Daniel Trujillo DPM - 09/30/2012 1:01 PM CST [facility] Podiatry/Foot and Ankle Surgery Brief Operative Note Pre-operative diagnosis: Painful Internal Fixation left foot Painful recurrence of toenail right great toe Post-operative diagnosis same Procedure: Procedure(s): Hardware Removal left foot - Deep Surgical matrixectomy right great toe Surgeon: DANIEL TRUJILLO DPM Assistants(s): Anesthesia: MAC Estimated blood loss: 5 cc COMMUNICATIONS ENGINEER documented in this encounter Plan of Treatment Not on filedocumented as of this encounter Procedures Procedure Name Priority Date/Time Associated Diagnosis Comme nts XR FOOT PORT LEFT 3 Routine 09/30/2012 1:44 PM Re sults for this VIEWS WIRE COMMUNICATIONS ENGINEER procedure are i n the results section. EXCISION, TOENAIL 09/30/2012 11:41 AM painful internal WIRE COMMUNICATIONS ENGINEER fixation left foot Special Needs 5'# Hx MRSA REMOVAL, HARDWARE, FOOT 09/30/2012 11:41 AM WIRE COMMUNICATIONS ENGINEER painfu l internal fixation left foot Special Needs 5'# Hx MRSA EKG 12-LEAD, TRACING ONLY Routine 09/30/2012 11:38 AM WIRE COMMUNICATIONS ENGINEER Results for this procedure are in the resu lts section. HIM ECG SCAN Routine 09/30/2012 documented in this encounter Results X-ray LEFT Foot 3 vw port (09/30/2012 1:44 PM WIRE COMMUNICATIONS ENGINEER) Anatomical Region Laterality Modality Left Foot Left Other Specimen (Source) Anatomical Collection Method Collection Time Re ceived Time Location / / Volume Laterality 09/30/2012 1:44 PM WIRE COMMUNICATIONS ENGINEER Impressions 10/01/2012 10:47 AM WIRE COMMUNICATIONS ENGINEER IMPRESSION: Postoperative and degenerative change. No acute abnormality. ODILON RANDOLPH MD Narrative 10/01/2012 10:47 AM WIRE COMMUNICATIONS ENGINEER LEFT FOOT THREE OR MORE VIEWS PORTABLE [...] EKG 12-lead, tracing only (09/30/2012 11:38 AM WIRE COMMUNICATIONS ENGINEER) Component Value Ref Range Test Analysis Performed Pathologis t Method Time At Signature Ventricular Rate 64 BPM RADIOLOGY RESULTS Atrial Rate 64 BPM RADIOLOGY RESULTS UT Interval 154 ms RADIOLOGY RESULTS QRS Duration 80 ms RADIOLOGY RESULTS QT 410 ms RADIOLOGY RESULTS QTc 422 ms RADIOLOGY RESULTS P Whites[place] -1 degrees RADIOLOGY RESULTS R AXIS -9 degrees RADIOLOGY RESULTS T [place] -7 degrees RADIOLOGY RESULTS Interpretation Sinus rhythm [...] / / Volume Laterality 09/30/2012 11:38 AM WIRE COMMUNICATIONS ENGINEER Doctor Unknown ECG ORDERABLES Performing Organization Address City/State/ZIP Code Phon e Number RADIOLOGY RESULTS ECG - HIM ECG Scan (09/30/2012) Narrative This result has an attachment that is no t available. Daniel Trujillo DPM ECG ORDERABLES documented in this encounter Visit Diagnoses Not on filedocumented in this encounter Administered Medications Inactive Administered Medications - up to 3 most recent administrations Medication Order MAR Action Action Date Dose Rate Site bupivacaine (MARCAINE) Given 09/30/2012 12:38 15 mLs Operative injection 0.5% (PF) PM WIRE COMMUNICATIONS ENGINEER Site/Surgical S ite PRN, Starting on Yesenia 09/30/12 at 1238, Intra-procedure fentaNYL (SUBLIMAZE) injection 25-50 mcg Given 09/30/2012 2:16 PM WIRE COMMUNICATIONS ENGINEER 50 mcg 25-50 mcg, Intravenous, EVERY 2 MIN PRN, other, acute pain, Starting on Yesenia 09/30/12 at 1251, MAX cumulative dose = 250 mcg. Use Fentanyl initially, as a short acting agent for acute pain control. If insufficient, or a longer acting agent is needed, begin Morphine or Hydromorphone if ordered., PACU Given 09/30/2012 1:33 PM WIRE COMMUNICATIONS ENGINEER 50 mcg HYDROcodone-acetaminophen 5-325 MG per Given 09/30/2012 2:16 PM WIRE COMMUNICATIONS ENGINEER 1 tablet tablet 1-2 tablet 1-2 tablet, Oral, ONCE, On Yesenia 09/30/12 at 1330, For 1 dose, One time prior to discharge., Post-procedure lactated ringers infusion New Bag 09/30/2012 1:33 PM WIRE COMMUNICATIONS ENGINEER 1,000 mLs 100 mL/hr at 100 mL/hr, Intravenous, CONTINUOUS, Continue until IV catheter is weaned, PACU, Starting on Yesenia 09/30/12 at 1300, Until Yesenia 09/30/12 at 1723 lidocaine (PF) (XYLOCAINE) Given 09/30/2012 12:40 PM 4 mLs Operative Site/Surgical 1 % injection WIRE COMMUNICATIONS ENGINEER Site PRN, Starting on Yes[place] 09/30/12 at 1238, Intra-procedure sodium chloride 0.9% Given 09/30/2012 12:41 PM 100 mLs Operative Site/Surgical (bottle) irrigation WIRE COMMUNICATIONS ENGINEER Site PRN, Starting on Yesenia 09/30/12 at 1241, Area to irrigate and instructions: ., Intra-procedure documented in this encounter Active and Recently Administered Medications Times are shown in WIRE COMMUNICATIONS ENGINEER. Scheduled Medication Order 09/28/2012 09/29/2012 09/30/2012 HYDROcodone-acetaminophen [...] 1152 (Given - Provider: Lety Guzman APRN HEALTH CARE RECRUITER) 900 mg, Intravenous, for 60 Minutes, EMIL [...] Intra-procedure documented in this encounter Care Teams Stone Planer Relationship Specialty Start Date End Date Primary Dipak Kasper MD PCP - General 09/21/1204/18 documented as of this encounter
--- OUTSIDE RECORDS SUMMARY | 2022-05-30 08:47 | XMS_ITS | Encounter Summary ---
:1940 Author Organization [place] Address [address] [place] [address] Care Team Providers Name Role Phone Primary Dr, Unknown MD Primary Care Provider Unavailable Reason for Visit Reason Onset Date Comments Patient/info Update 10/04/2012 Encounter Details Date Type Department Care Team Description 10/04/2012 Telephone [facility] Sal Chaparro, Patient/info Update Yumiko WELSH MD [address] [place] [address] [facility] [phone] [place], [place] [id number] (Wo rk) Social History Tobacco Use Types [...] Sal Chaparro, DPJami - 10/05/2012 11:14 AM CRIME SCENE SPECIALIST Spoke w/ pt and we will check him today (10/05/12) @ 11:30 E SCENE SPECIALIST Telephone Encounter - Amber Mead - 10/04/2012 11:[address] Nesbitt. ALINE Gordon. Please read. Message below. Let me know if I can assist at all. Amber Mead CMA ([facility]) E SCENE SPECIALIST Telephone Encounter - Sandra Melgar - 10/04/2012 10:[address] Nsebitt has placed this rx. Rx faxed. Jaime Melgar CMA ([facility]) E SCENE SPECIALIST Telephone Encounter - Amber Mead - 10/04/2012 [...] but patient feels lousy Spoke with DPM recruiting operations consultant, Dr. Green. He recommended Bactrim DS BID x 10 days Called RX into [facility] per patient's daughter request. Called Raquel back and left message on cell phone ([phone]), offered 230 appointment in [place] with Dr. Green if would like. Otherwise, f/u with Dr. Chaparro this week. Patient's daughter is requesting refill of [place] 5-325 - , can you approve and I can call in? Amber Mead CMA ([facility]) E SCENE SPECIALIST documented in this encounter Plan of Treatment Not on filedocumented as of this encounter Visit Diagnoses Diagnosis Ingrowing nail - Primary Pain in limb documented in this encounter Care Teams Labor And Delivery Nurse Relationship Specialty Start Date End Date Primary Dr, Unknown, MD PCP - General 09/21/1204/18 documented as of this encounter
--- OUTSIDE RECORDS SUMMARY | 2022-05-30 08:47 | XMS_ITS | Encounter Summary ---
:1940 Author Organization [place] Address [address] [place] [address] Care Team Providers Name Role Phone Primary DrDipak MD Primary Care Provider Unavailable Celina Coley Primary [facility] [place] Primary Care Provider Jon White MD Unavailable [phone] Ramiro Loco MD Unavailable Encounter Details Date Type Department Care Team Description 05/03/2014 Surgery - [facility] Hang Mcclure, [facility] OR [facility] [address] [place] [address] 17 [facility] 31 [address] [place] [address] [phone] (Wo rk) Social History Tobacco Use Types [...] documented as of this encounter Care Teams Chemical Technician Relationship Specialty Start Date End Date Primary Dipak Kasper MD PCP - General 09/21/1204/18 Celina Coley PCP - General Family Practice 05/05/17 05/11/[address] [address] [facility] P[facility] - General 05/12/[address] [address] Jon White Assigned Surgical Provider 08/10/20 12/08/20 MD [address] [place] [address] Ramiro Loco MD Assigned Heart and 08/10/20 05/11/21 [address] Vascular Provider [place] G[place] [address] documented as of this encounter
--- OUTSIDE RECORDS SUMMARY | 2022-05-30 08:47 | XMS_ITS | Encounter Summary ---
:1940 Author Organization [place] Address [address] [place] [address] Care Team Providers Name Role Phone Primary Dr, Unknown MD Primary Care Provider Unavailable Reason for Visit Reason Comments Dressing Change Encounter Details Date Type Department Care Team Description 11/18/2016 Allied Health/Nurse [facility] Dressing Change Visit [place] [phone] Social History Tobacco Use Types Packs/Day [...] healed. IN CASE OF EMERGENCY: Dr White [phone] If you were seen in [place] call: [phone] If you were seen in [place] call: [phone] FIC SUPERINTENDENT documented in this encounter Progress Notes Lillian [...] needed. Patient verbalized understanding. .Marva Aj CMA FIC SUPERINTENDENT documented in this encounter Plan of Treatment Not on filedocumented as of this encounter Visit Diagnoses Diagnosis Encounter for change or removal of surgi hannah wound dressing - Primary documented in this encounter Care Teams Senior Supplier Quality Engineer Relationship Specialty Start Date End Date Primary Dipak Kasper, PCP - General 09/21/1204/18 documented as of this encounter
--- OUTSIDE RECORDS SUMMARY | 2022-05-30 08:47 | XMS_ITS | Encounter Summary ---
:1940 Author Organization [place] Address [address] [place] [address] Care Team Providers Name Role Phone Primary Dr, Unknown Primary Care Provider Unavailable Encounter Details Date Type Department Care Team Description 11/29/2014 - Hospital Encounter [facility] Hang Mcclure phoebe stenosis, lumbar region, without neurogenic claudication; 12/01/2014 [facility] MD Koki AAA (abdominal aortic aneurysm) (H); [facility] Diabetes mellitus (H); [address] [facility] Hypertension; Drive [address] BPH (benign prostatic hyperp lasia); [place], [place] [address] HLD (hyperlipidemia); [address] [place], [place] Hyperglycemia, drug-induced; [phone] MRSA (methicillin resistant staph aureus ) [...] 90.7 kg (200 lb) 11/29/2014 9:33 AM TELETRAY OPERATOR Height 180.3 cm (5' 11) 11/29/2014 9:33 AM TELETRAY OPERATOR Body Mass Index 27.89 11/29/2014 9:33 AM TELETRAY OPERATOR documented in this encounter Discharge Summaries Dimas [...] the office in about 2 weeks. Call [phone] if patient needs to schedule appointment. Dimas Hale PA-C Date: 12/01/2014 Time: 7:49 AM TRAY OPERATOR documented in this encounter Medications at Time [...] 40 mg (LIPITOR) 40 mg Oral QHS Marcelino Finch MD 40 mg at 11/30/148 ??? [...] CULTURE - Final result (09/22/2012 3:43 PM TELETRAY OPERATOR) [facility] Component Value Range SOURCE Nasal [...] Fowler MD Date: 12/01/2014 Time: 2:00 PM [facility] Family Medicine TRAY OPERATOR Dimas Hale - 12/01/2014 7:25 AM CST [...] Low Dias - 11/30/2014 2:35 PM CST HOSPITAL PLAN ADMINISTRATOR TREATMENT NOTE Name: Speedy Hendricks : 1940 Acupuncture Treatment Patient Type: Orthopedic Intervention Reason: Urinary Retention Patient complaint:: Unable to void Acupunture (Points):: [place] 3, 4, 6, St 29 Risks and benefits discussed. Low Ramirez L.Ac. Date: 11/30/2014 Time: 2:36 PM TRAY OPERATOR Marcelino Finch MD - 11/30/2014 8:13 AM CST [facility] Medicine Service Progress Note Assessment/Plan: -Lumbar [...] Radiology Radiology Results: personally reviewed the impression TRAY OPERATOR Radha Grey - 11/29/2014 5:01 PM CST Acute Pain Management Team Consulting provider: Dr. Mcclure/Dr. Finch POD#:0 Procedure: LEFT L2-3, L3-4 POSTERIOR FUSION AND L3-4 REVISION DECOMPRESSION Home pain regimen: Opioid status: Tolerant [place] 7.5/325 mg-1 tabs q 4 -6 h prn-pt reports taking no more than 6 /day Oxycodone 2.5-5 mg po q 4 h prn_juse recent Rx due to increased nerve pain L leg Arthrotec 75 mg po bid prn Current pain regimen: Will change standard regiment of oxycodone scheduled and oxycodone prn to [place] 7.5/325 and prn oxycodone. Dilaudid IV bumps [...] tolerant , especially whenviewing Rx history of [place] 7.5/325, but he and family report him not taking more than 6 tablets perday of Winfield 7.5/325, and have new Rx for oxycodone, but reports only taking 2.5 mg dose at a time. He is very sedated now, and will start out conservatively, not knowing exactly how much Winfield he was taking at home. Pt and family reported he is very sensitive to oxycodone, but does well on W[place]ield. Assessment/Plan: W[place] 7.3/325 1- tablet every 4 hours Oxycodone -2.5 -5 mg po q 4 h prn BTP Discussed with Dr. Finch Will follow pt Radha Grey RPh 11/29/2014 5:02 PM TRAY OPERATOR Marcelino Finch MD - 11/29/2014 4:45 PM CST [facility] Medicine Service Progress Note Assessment/Plan: -Lumbar [...] Radiology Radiology Results: personally reviewed the impression TRAY OPERATOR Saman Bernard - 11/29/2014 10:38 AM CST [facility](s) Hopes: Pt hopes to have his leg pain stop after surgery. Needs: Pt needs support of family. Resources: pt has his spouse and several family members in the room with him as resources and support. Additional Notes: pt joked with this blueberry grower about Gaines's Day and Saint Yonatan's Day; to thischaplain, having a sense of humor is an additional resource for this patient. Prayer declined, visitonly. Follow up: None planned. Spiritual care upon request. TRAY OPERATOR documented in this encounter H&P Notes Hang Mcclure - 11/29/2014 10:46 AM CST The patient's history has been reviewed and there are no pertinent changes TRAY OPERATOR documented in this encounter Miscellaneous Notes Op [...] was seen in the preop area of [facility] today. Low back was marked and [...] two 60 mm rods. The system was esolidar TSRH 3DX. We decorticated the facet joints [...] the instrumentation. All instrumentation was tightened to classroom technology coach's specifications. We then closed the deep fascia [...] used during this case Medtronic TSRH 3DX TRAY OPERATOR documented in this encounter Plan of Treatment Not on filedocumented as of this encounter Procedures Procedure Name Priority Date/Time Associated Diagnosis Comme nts CROSSMATCH RED CELLS Routine 12/02/2014 10:40 Res ults for this AM TELETRAY OPERATOR procedure are i n the results section. CROSSMATCH RED CELLS Routine 12/02/2014 10:40 Res ults for this AM TELETRAY OPERATOR procedure are i n the results section. XR LUMBAR SPINE PORT Routine 11/29/2014 1:38 Spinal stenosis, Results for this 2/3 VIEWS PM TELETRAY OPERATOR lumbar region, procedure are in without neurogenic the resul ts claudication section. XR SURGERY CHRIS FLUORO Routine 11/29/2014 1:37 Spinal stenosis , Results for this GREATER THAN 5 MIN PM TELETRAY OPERATOR lumbar region, procedu re are in without neurogenic the resul ts claudication section. RED CELL ANTIGEN Routine 11/29/2014 10:17 Results for this TYPING NON ABO AM TELETRAY OPERATOR procedure are in the results section. ANTIBODY Routine 11/29/2014 10:17 Results for this IDENTIFICATION AM TELETRAY OPERATOR procedure are in the results section. EKG CARDIAC - HIM SCAN 11/29/2014 documented in this encounter Results Crossmatch red cells (12/02/2014 10:40 AM TELETRAY OPERATOR) [facility] Method Time Signature Crossmatch COMPATIBLE 12/02/2014 BLOOD BANK 10:40 AM TELETRAY OPERATOR Unit ABO/RH O Pos 12/02/2014 BLOOD BANK 10:40 AM TELETRAY OPERATOR Unit Number [id number] 12/02/2014 BLOOD BANK 10:40 AM TELETRAY OPERATOR Status Released 12/02/2014 BLOOD BANK 10:40 AM TELETRAY OPERATOR Component Red Blood 12/02/2014 BLOOD BANK Cells 10:40 AM TELETRAY OPERATOR Product Code [id number] 12/02/2014 BLOOD BANK 10:40 AM TELETRAY OPERATOR Specimen (Source) Anatomical Location Collection Method / Collectio n Time Received Time / Laterality Volume Hang Mcclure MD LAB - BLOOD BANK PRODUCT ORD ER Performing Organization Address [facility] Phon e Number [facility] BLOOD BANK [address] [place] [address] BLOOD [address] [place] [address] [place] [address] Crossmatch red cells (12/02/2014 10:40 AM TELETRAY OPERATOR) [facility] gist Method Time Signature Crossmatch COMPATIBLE 12/02/2014 BLOOD BANK 10:40 AM TELETRAY OPERATOR Unit ABO/RH O Pos 12/02/2014 BLOOD BANK 10:40 AM TELETRAY OPERATOR Unit Number [id number] 12/02/2014 BLOOD BANK 10:40 AM TELETRAY OPERATOR Status Released 12/02/2014 BLOOD BANK 10:40 AM TELETRAY OPERATOR Component Red Blood 12/02/2014 BLOOD BANK Cells 10:40 AM TELETRAY OPERATOR Product Code [id number] 12/02/2014 BLOOD BANK 10:40 AM TELETRAY OPERATOR Specimen (Source) Anatomical Location Collection Method / Collectio n Time Received Time / Laterality Volume Hang Mcclure MD LAB - BLOOD BANK PRODUCT ORD ER Performing Organization Address [facility] Phon e Number [facility] BLOOD [facility]ANK [address] [place] [address] BLOOD [address] [place] [address] [place] [address] XR Lumbar Spine Port 2/3 Views (11/29/2014 1:38 PM TELETRAY OPERATOR) Anatomical Region Laterality Modality Spine Other Specimen (Source) Anatomical Location Collection Method / Collectio n Time Received Time / Laterality Volume Narrative 11/29/2014 1:51 PM TELETRAY OPERATOR XR LUMBAR SPINE 2 OR 3 VWS [...] Fluoro G/T 5 Min (11/29/2014 1:37 PM TELETRAY OPERATOR) Anatomical Region Laterality Modality Abdomen/Pelvis Other Specimen (Source) Anatomical Location Collection Method / Collectio n Time Received Time / Laterality Volume Narrative 11/29/2014 1:37 PM TELETRAY OPERATOR Please see the Radiology Report for result for body part of interest. Procedure Note David Girard - 03/23/2021Formatt ing of this note might be different from the original. Please see the Radiology Report for resu lt for body part of interest. Hang Mcclure MD IMG DIAGNOSTIC IMAGING ORDER BRAYDEN Antibody identification (11/29/2014 10:17 AM TELETRAY OPERATOR) Patholo gist Method Time Signature Antibody > 3hr for 11/29/2014 BLOOD BANK Identification more 1:34 PM TELETRAY OPERATOR blood;Ant i-[place] Specimen Anatomical Collection Method / Collection Time Recei fany Time (Source) Location / Volume Laterality Blood specimen Venipuncture / 11/29/2014 10:17 015 1:34 (specimen) Unknown AM TELETRAY OPERATOR PM TELETRAY OPERATOR Hang Mcclure MD LAB - BLOOD BANK TEST ORDER Performing Organization Address City/State/ZIP Code Phon e Number [facility] BLOOD [facility]ANK [address] [place] [address] BLOOD BANK [address] [place] [address] Red Cell Antigen Typing Non ABO: (11/29/2014 10:17 AM TELETRAY OPERATOR) P athologist Signature K Antigen Type Negative 11/29/2014 BLOOD BANK 1:16 PM TELETRAY OPERATOR Specimen Anatomical Collection Method / Collection Time Recei fany Time (Source) Location / Volume Laterality Blood specimen Venipuncture / 11/29/2014 10:17 015 1:16 (specimen) Unknown AM TELETRAY OPERATOR PM TELETRAY OPERATOR Narrative [facility] BLOOD [facility] - 11/29/2014 1:16 PM TELETRAY OPERATOR K Antigen Hang Mcclure MD LAB - BLOOD BANK TEST ORDER Performing Organization Address City/State/ZIP Code Phon e Number [facility] BLOOD [facility]ANK [address] [place] [address] BLOOD BANK [address] [place] [address] EKG CARDIAC - HIM SCAN (11/29/2014) Specimen [...] aureus documented in this encounter Care Teams Manager Business Intelligence Relationship Specialty Start Date End Date Primary Dipak Kasper MD PCP - General 09/21/1204/18 documented as of this encounter
--- OUTSIDE RECORDS SUMMARY | 2022-05-30 08:47 | XMS_ITS | Encounter Summary ---
:1940 Author Organization [place] Address [address] [place] [address] Care Team Providers Name Role Phone Primary DrDipak MD Primary Care Provider Unavailable Celina Coley Primary [facility] Provider [facility] [place] Primary Care Provider [phone] Jon White MD Unavailable [phone] Ramiro Loco MD Unavailable Encounter Details Date Type Department Care Team Description 04/18/2014 [facility] Provider, [facility] Information Management [address] [facility] [address] [place] [address] Social History Tobacco Use Types Packs/Day Years [...] documented as of this encounter Care Teams Securities Sales Associate Relationship Specialty Start Date End Date Primary Dipak Kasper MD PCP - General 09/21/1204/18 Celina Coley PCP - General Family Practice 05/05/17 05/11/[address] [address] Kehinde Portillo PCP - General 05/12/[address] [address] Jon White Assigned Surgical Provider 08/10/20 12/08/20 MD [address] [place] [address] Ramiro Loco MD Assigned Heart and 08/10/20 05/11/21 [address] Vascular Provider [place] [address] documented as of this encounter
--- OUTSIDE RECORDS SUMMARY | 2022-05-30 08:47 | XMS_ITS | Encounter Summary ---
:1940 Author Organization [place] Address [address] [place] [address] Care Team Providers Name Role Phone Primary DrDipak MD Primary Care Provider Unavailable Celina Coley Primary Care Provider [facility] Kendall Primary Care Provider [phone] Jon White MD Unavailable [phone] Ramiro Loco MD Unavailable Encounter Details Date Type Department Care Team Description 11/29/2014 [facility] [place] [address] [place] [phone] [place], [place] [phone] [address] Social History Tobacco Use Types Packs/Day Years [...] Hydration: adequate Anesthetic complications: no Additional Notes: PREPARATION SUPERVISOR Anesthesia Preprocedure Evaluation - Néstor Stack - 11/29/2014 10:00 AM CST Anesthesia Evaluation Patient summary reviewed No history of anesthetic complications Airway Mallampati: II Neck ROM: full Pulmonary - negative ROS and normal exam Cardiovascular (+) hypertension well controlled, (-) past NH, CAD, CABG/stent, dysrhythmias ECG reviewed Rhythm: regular Rate: normal Neuro/Psych - negative ROS Endo/Other (+) diabetes mellitus type 2 well controlled, obesity, GI/Hepatic/Renal - negative ROS Dental - normal exam Anesthesia Plan Planned anesthetic: general endotracheal Decadron (8 mg), Zofran. ASA 2 Induction: intravenous Anesthetic plan and risks discussed with: patient Post-op plan: routine recovery PREPARATION SUPERVISOR documented in this encounter Miscellaneous Notes Anesthesia [...] documented as of this encounter Care Teams Maintenance Data Analyst Relationship Specialty Start Date End Date Primary Dipak Kasper MD PCP - General 09/21/1204/18 Celina Coley PCP - General Family Practice 05/05/17 05/11/[address] [address] [facility] PCP - General 05/12/[address] [id number] Jon White Assigned Surgical Provider 08/10/20 12/08/20 MD Aubrey [address] [place], [place] [id number] Ramiro Loco MD Assigned Heart and 08/10/20 05/11/21 [address] 340 Vascular Provider [place] GORDON [address] documented as of this encounter
--- OUTSIDE RECORDS SUMMARY | 2022-05-30 08:47 | XMS_ITS | Encounter Summary ---
:1940 Author Organization [place] Address [address] [place] [address] Care Team Providers Name Role Phone Primary Dr, Dipak WELSH Primary Care Provider Unavailable Reason for Visit Reason Comments Derm Problem MOHS Encounter Details Date Type Department Care Team Description 11/06/2016 Office Visit [facility] Jon White Basal cell carcinoma of nose (Primary Dx); Clinic [place] MD Aubrey [place]; [place] [address] [place] (seborrheic keratosis); [address] [address] [place], [place] [phone] [address] (Work) [phone] Social History Tobacco Use Types Packs/Day Years [...] Comments Blood Pressure 203/105 11/06/2016 10:05 AM ZOO DIRECTOR Pulse 64 11/06/2016 10:05 AM ZOO DIRECTOR Temperature - - Respiratory Rate - - Oxygen Saturation 96% 11/06/2016 10:05 AM ZOO DIRECTOR Inhaled Oxygen Concentration - - Weight - - Height - - Body Mass Index - - documented in this encounter Patient Instructions Patient InstructionsLillian Aj CMA - 11/06/2016 10:52 AM CST Sutured Wound Care [facility]: [phone] [facility]: [phone] ? No strenuous activity for 48 hours. [...] occurs. In case of emergency phone:Dr White [phone] DIRECTOR documented in this encounter Progress Notes Jon [...] ??? Ent surgery tonsils ??? Appendectomy ??? [place] teeth[ ??? Remove hardware foot 09/30/2012 Procedure: [...] will return in one week forwound evaluation. DIRECTOR documented in this encounter Nursing Notes Farzana Harris CMA - 11/06/2016 10:52 AM CST Surgical Office Location: [facility] [address] [place] [address] DIRECTOR Lillian Aj CMA - 11/06/2016 10:06 AM CST Initial BP 203/105 mmHg Pulse 64 SpO2 96% Estimated body mass index is 32.10 kg/(m^2) as calculated from the following: Height as of 10/22/12: 1.702 m (5' 7). Weight as of 10/22/12: 92.987 kg (205 lb). . DIRECTOR documented in this encounter Plan of Treatment Not on filedocumented as of this encounter Procedures Procedure Name Priority Date/Time Associated Diagnosis Comme nts HC MOHS Routine 11/06/2016 10:51 AM Basal cell carcinoma of HEAD/NCK/HND/FT/GEN ZOO DIRECTOR nose 1ST STAGE UP T0 5 BLOCKS HC ADJ TISSUE XFER Routine 11/06/2016 10:51 AM Basal cell carc inoma of LID/NOS/EAR/LIP ZOO DIRECTOR nose 10.1-30 CM documented in this encounter Visit Diagnoses Diagnosis Basal cell carcinoma of nose - Primary Basal cell carcinoma of skin of other an d unspecified parts of face [place] Other dyschromia [place] (seborrheic keratosis) Other seborrheic keratosis [place] Hemangioma of unspecified site documented in this encounter Care Teams Horticultural Farmer Relationship Specialty Start Date End Date Primary Dipak Kasper MD PCP - General 09/21/1204/18 documented as of this encounter
--- OUTSIDE RECORDS SUMMARY | 2022-05-30 08:48 | XMS_ITS | Encounter Summary ---
:1940 Author Organization [place] Address [address] [place] [address] Care Team Providers Name Role Phone Unavailable Primary Care Provider Unavailable Reason for Visit Reason Onset Date Comments Patient Inquiry 02/19/2011 [facility] and Creat risi ng Encounter Details Date Type Department Care Team Description 02/19/2011 Telephone [facility] Sal Chaparro Pat iestar Inquiry ([facility] [place] DPM and Creat rising) [address] [place] [address] [phone] Social History Tobacco Use Types Packs/Day Years [...] and call daughter Raquel with plan @ [phone]. Thanks, Aruna Arriaza RN documented in this encounter Plan of Treatment Not on filedocumented as of this encounter Visit Diagnoses Not on filedocumented in this encounter
--- OUTSIDE RECORDS SUMMARY | 2022-05-30 08:48 | XMS_ITS | Encounter Summary ---
:1940 Author Organization [place] Address [address] [place] [address] Care Team Providers Name Role Phone Unavailable Primary Care Provider Unavailable Reason for Visit Reason Comments Surgical Followup follow up to left foot surge ry. Encounter Details Date Type Department Care Team Description 07/16/2011 Office Visit [facility] Sal Chaparro Foot p ain (Primary Dx); Clinic Yumiko Castellanos DPM [place] [address] [place] [address] [place] [phone] [place] [address] Social History Tobacco Use Types [...]
--- OUTSIDE RECORDS SUMMARY | 2022-05-30 08:48 | XMS_ITS | Encounter Summary ---
:1940 Author Organization [place] Address [address] [place] [address] Care Team Providers Name Role Phone Unavailable Primary Care Provider Unavailable Reason for Visit Reason Onset Date Comments Surgical Followup 02/08/2011 Encounter Details Date Type Department Care Team Description 02/08/2011 Telephone [facility] Sal Chaparro, Surgical Followup [place] DPM [address] [place] [address] [facility] 100 [place], [place] [address] (Wo rk) Social History Tobacco Use Types Packs/Day Years Used Date Never Assessed Sex Assigned at Date Recorded Not on file documented as of this encounter Miscellaneous Notes Telephone Encounter - April Membreno - 02/12/2011 9:22 AM CDT Follow up visit scheduled with Dr. Chaparro on 02/14/11 @ 3:15. Telephone Encounter - Kiarra Tsai - 02/08/2011 12:28 PM CDT Patient was told by Dr. Chaparro to be seen one week after surgery (02/06/2011). Patient would likea call to schedule as no appointments are available. documented in this encounter Plan of Treatment Not on filedocumented as of this encounter Visit Diagnoses Not on filedocumented in this encounter
--- OUTSIDE RECORDS SUMMARY | 2022-05-30 08:48 | XMS_ITS | Encounter Summary ---
:1940 Author Organization [place] Address [address] [place] [address] Care Team Providers Name Role Phone Unavailable Primary Care Provider Unavailable Reason for Visit Reason Onset Date Comments Schedule Surgery 01/30/2011 Encounter Details Date Type Department Care Team Description 01/30/2011 Telephone [facility] Sal Love, Schedule Surgery [address] [facility] [address] 1021 [facility] E [phone] [place] [address] [place], [place] [address] (Wo rk) Social History Tobacco Use Types Packs/Day Years Used Date Never Assessed Sex Assigned at Date Recorded Not on file documented as of this encounter Miscellaneous Notes Telephone Encounter - Kandy Cain - 02/04/2011 1:02 PM CDT Packet mailed. Kandy Cain CMA Telephone Encounter - Kandy Cain - 01/31/2011 12:49 PM CDT Added to [place] Telephone Encounter - Kandy Cain - 01/31/2011 10:34 AM CDT Surgery scheduled. Left with details. Date/Time: 02/06/2011 @ 10:50 am Hospital: [facility] Anesthesia: POP Surgeon: Sal Chaparro D.P.M. Preop:Unknown [...] surgery details for pt? February 06 or [phone] or [phone] Thank you, Kandy Cain CMA documented in this encounter Plan of Treatment Not on filedocumented as of this encounter Visit Diagnoses Not on filedocumented in this encounter
--- OUTSIDE RECORDS SUMMARY | 2022-05-30 08:48 | XMS_ITS | Encounter Summary ---
:1940 Author Organization [place] Address [address] [place] [address] Care Team Providers Name Role Phone Unavailable Primary Care Provider Unavailable Encounter Details Date Type Department Care Team Description 02/06/2011 Results [facility] Tiffanie me[place], Sal Castellanos, DPM Hospital Results [address] [place] [address] [place], [place] [address] (Wo rk) Social History Tobacco [...]
--- OUTSIDE RECORDS SUMMARY | 2022-05-30 08:48 | XMS_ITS | Encounter Summary ---
:1940 Author Organization [place] Address Replaced by [facility] [place] [address] Care Team Providers Name Role Phone Unavailable Primary Care Provider Unavailable Reason for Visit Reason Comments Musculoskeletal Problem pt states he broke his left great toe and 2nd toe. He is still having trouble/pain in his 2nd toe. Sx since September. Encounter Details Date Type Department Care Team Description 01/29/2011 Office Visit [facility] Sal Chaparro Fractu re, nonunion (Primary Dx); Clinic [place] F, DPM Other hammer toe (acquired); [address] [place] [address] Pain in so ft tissues of limb [place] [facility] 100 [phone] [place], [place] [phone] Social History Tobacco Use Types Packs/Day Years Used Date Never Assessed Sex Assigned at Date Recorded Not on file documented as of this encounter Progress Notes Sal Chaparro - 01/30/2011 4:52 PM CDT Subjective: Pt is seen today as a new pt self referral with the c[facility]. 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 Pt has been treated in CAM [...] area. X-rays were reviewed Nov 2010 from [facility] clinic with the pt which show a [...]
--- OUTSIDE RECORDS SUMMARY | 2022-05-30 08:48 | XMS_ITS | Encounter Summary ---
:1940 Author Organization [place] Address [facility] [place] [address] Care Team Providers Name Role Phone Unavailable Primary Care Provider Unavailable Reason for Visit Reason Comments Surgical Followup 02/06 left foot post op and r ight great toe post op. Encounter Details Date Type Department Care Team Description 04/02/2011 Office Visit [facility] Sal Chaparro aftercare Clinic Yumiko Castellanos DPM (Primary Dx) [address] [place] [address] [place] [phone] [place], [place] [phone] Social History Tobacco Use Types Packs/Day Years Used Date Never Assessed Sex Assigned at Date Recorded Not on file documented as of this encounter Progress Notes Sal Chaparro DPM - 04/02/2011 10:44 AM CDT Subjective: Patient is seen today 7 wks post op from a 1. Hammertoe correction, second toe, left foot. 2. Nonunion takedown, debridement and bone grafting second metatarsal, left foot. 3. Surgical matrixectomy, right great toenail. . Patient is doing well, admits compliance, denies fevers, chills, nausea or vomiting. Continues to use CAM boot on lt. Past wound culture on rt great toe was positive for MRSA and complete resolution w/ PO Bactrim. Pt is currently asymptomatic on his lt foot. Objective: Pulses are palpable, sensation to light touch is intact. Patient has slightly limited muscle strength and ROM. Minimal signs of edema, no sign of erythema, infection, ulceration, or drainage on the lt.No pain noted over surgical site lt foot. Completely healed rt great toenail bed. X-rays taken 3 views lt foot weightbearing which bridging bone callous across non-union take-down from lateral to medial. Stable internal fixation and no other sign of osseous pathology. Assessment: 8 wks post op Plan: Pt may shower and no foot soaks. Continue with ice and compression. Limit activities with partial weight bearing in a new CAM boot on lt and regular shoe on rt. Call with questions or concerns and follow-up in 4 wks for re-check. documented in this encounter Nursing Notes 04/02/2011 9:45 AM CDT >> MELL MAGANA Wed Apr 02, 2011 10:16 AM Patient presents with: Surgical Followup - 02/06 left foot post op and right great toe post op. Initial There were no vitals taken for this visit. Mell Magana CMA documented in this encounter Plan of Treatment Not on filedocumented as of this encounter Procedures Procedure Name Priority Date/Time Associated Diagnosis Comme nts XR FOOT LEFT G/E 3 Routine 04/02/2011 10:09 AM Surgery afterca re Results for this VIEWS CDT procedure are i n the results section. documented in this encounter Results X-ray lt Foot G/E 3 vws* (04/02/2011 10:09 AM CDT) Anatomical Region Laterality Modality Foot, Ankle Left Other Specimen (Source) Anatomical Collection Method Collection Time Re ceived Time Location / / Volume Laterality 04/02/2011 10:09 AM CDT Impressions 04/03/2011 9:42 AM CDT FOOT THREE OR MORE VIEWS LEFT Apr 02 11 10:09 AM HISTORY: Surgery aftercare, weightbearin g. COMPARISON: 03/05/2011 and 01/29/2011. FINDINGS: Interval removal of the second phalangeal pin. Sideplate and screw device fixes the second metatarsal in anatomic alignment. The osteotomy line remains distinct. Mild in terval increase in callus formation reflects healing. No acute oss eous abnormality. IMPRESSION: 1. Interval removal of second phalangeal pin. 2. Mild increase in second metatarsal ca llus formation suggesting interval healing. Sal Chaparro DPM IMG DIAGNOSTIC IMAGING ORDER BRAYDEN documented in this encounter Visit Diagnoses Diagnosis Surgery aftercare - Primary Other specified aftercare following surg anai documented in this encounter
--- OUTSIDE RECORDS SUMMARY | 2022-05-30 08:48 | XMS_ITS | Encounter Summary ---
:1940 Author Organization [facility] Address [address] [place] [address] Care Team Providers Name Role Phone Unavailable Primary Care Provider Unavailable Reason for Visit Reason Comments Surgical Followup left foot post op. Encounter Details Date Type Department Care Team Description 09/17/2011 Office Visit [facility] Sal Chaparro y aftercare Clinic Yumiko Castellanos DPM (Primary Dx) [address] [place] [address] [phone] [place] [address] Social History Tobacco Use Types [...] a regular shoe on lt. F/U prn. DENTIAL SUPPORT SPECIALIST documented in this encounter Nursing Notes 09/17/2011 [...] Surgery aftercar e Results for this VIEWS RESIDENTIAL SUPPORT SPECIALIST procedure are i n the results section. documented in this encounter Results X-ray lt Foot G/E 3 vws* (09/17/2011 9:01 AM RESIDENTIAL SUPPORT SPECIALIST) Anatomical Region Laterality Modality Foot, Ankle Left Other Specimen (Source) Anatomical Collection Method Collection Time Re ceived Time Location / / Volume Laterality 09/17/2011 9:01 AM RESIDENTIAL SUPPORT SPECIALIST Impressions 09/17/2011 11:23 AM RESIDENTIAL SUPPORT SPECIALIST FOOT THREE OR MORE VIEWS LEFT Sep 17 9:01 AM HISTORY: Surgery aftercare. COMPARISON: 07/16/2011. FINDINGS: Status post fixation of a seco nd metatarsal fracture with a bridging cortical plate and screws, as b efore. Alignment remains near anatomic and hardware is intact. No sign ificant change from prior examination. No new acute bony abnormali ties. Sal Chaparro DPM IMTiffani DIAGNOSTIC IMAGING ORDER BRYADEN documented in this encounter Visit Diagnoses Diagnosis Surgery aftercare - Primary Other specified aftercare following surg anai documented in this encounter
--- OUTSIDE RECORDS SUMMARY | 2022-05-30 08:48 | XMS_ITS | Encounter Summary ---
:1940 Author Organization [place] Address [address] [place] [address] Care Team Providers Name Role Phone Unavailable Primary Care Provider Unavailable Encounter Details Date Type Department Care Team Description 02/06/2011 Operative Report [facility] Daniel Trujillo, (Senior Maintenance Machinist) [facility] DPM Results [address] [place], [place] [address] (Wo rk) Social History Tobacco [...] medial and laterally and with a small [place] blade, I was able to carefully dissect [...] DPM MT: [id number] Name: SPEEDY MCDUFFIE Account: [id number] : 1940 Procedure Date: 02/06/2011 Document: [id number] cc: Michelle Hedrick MD documented in this encounter Plan of Treatment Not on filedocumented as of this encounter Visit Diagnoses Not on filedocumented in this encounter
--- OUTSIDE RECORDS SUMMARY | 2022-05-30 08:48 | XMS_ITS | Encounter Summary ---
:1940 Author Organization [place] Address [facility] [place] [address] Care Team Providers Name Role Phone Unavailable Primary Care Provider Unavailable Reason for Visit Reason Comments Surgical Followup 02/06 left foot surgery. Seco nd metatarsal fracture nonunion, left foot Encounter Details Date Type Department Care Team Description 04/30/2011 Office Visit [facility] Sal Chaparro aftercare Clinic Yumiko Castellanos DPM (Primary Dx) [address] [place] [address] [place] [phone] [place], [place] [phone] Social History Tobacco Use Types Packs/Day Years [...]
--- OUTSIDE RECORDS SUMMARY | 2022-05-30 08:48 | XMS_ITS | Encounter Summary ---
:1940 Author Organization [place] Address [address] [place] [address] Care Team Providers Name Role Phone Unavailable Primary Care Provider Unavailable Reason for Visit Reason Comments Surgical Followup 02/06 left foot post op. Encounter Details Date Type Department Care Team Description 02/14/2011 Office Visit [facility] Sal Chaparro Afterca re following Yariel Castellanos DPM surgery of the [facility] [employer] [address] musculoskeletal system, [place] [address] E NEC (Primary Dx) [phone] [facility] 100 [place], [place] [address] Social History Tobacco Use Types [...] Component Value Ref Test Analysis Performed At [facility] Method Time Signature Specimen Toe NIXON Description [facility] Culture Micro Heavy growth NIXON Methicillin [facility] Staphylococcus aureus (MRSA) Micro Report FINAL 02/17/2011 NIXON Status [facility] Specimen Anatomical Collection Method Collection Time [...] M [facility] [address] [place] [address] [facility] documented in this encounter Visit Diagnoses Diagnosis Aftercare following [facility] the [facility] los[facility], NEC - Primary documented in this encounter
--- OUTSIDE RECORDS SUMMARY | 2022-05-30 08:48 | XMS_ITS | Encounter Summary ---
:1940 Author Organization [place] Address [address] [place] [address] Care Team Providers Name Role Phone Unavailable Primary Care Provider Unavailable Reason for Visit Reason Comments Surgical Followup 02/06 post op left foot 2nd m etatarsal Fx. Encounter Details Date Type Department Care Team Description 03/05/2011 Office Visit [facility] Sal Chaparro aftercare Clinic Yumiko Castellanos DPM (Primary Dx) [address] [place] [address] [place] [phone] [place] [address] Social History Tobacco Use Types Packs/Day Years Used Date Never Assessed Sex Assigned at Date Recorded Not on file documented as of this encounter Progress Notes Sal Chaparro DPM - 03/16/2011 1:45 PM CDT Subjective: Patient is seen today 4 wks post op from a 1. Hammertoe correction, second toe, left foot. 2. Nonunion takedown, debridement and bone grafting second metatarsal, left foot. 3. Surgical matrixectomy, right great toenail. . Patient is doing well, admits compliance, denies fevers, chills, nausea or vomiting. Continues to use CAM boot on lt and post-op shoe on rt. Here today w/ family members. PAst wound culture on rt great toe was positive for MRSA and complete resolution w/ PO Bactrim. Objective: Dressing is dry, upon removal wound is well coapted, pin is intact. Pulses are palpable, sensation to light touch is intact. Patient has slightly limited muscle strength and ROM. Minimal signs of edema, no sign of erythema, infection, ulceration, or drainage on the lt. Completely resolved erythema noted to rt great toenail bed. Assessment: 4 wks post op Plan: Sterile redress on the b/l and pin removal lt 2nd toe. Pt may shower and no foot soaks. Continue with ice and compression. Limit activities with partial weight bearing in a CAM boot on lt and post-op shoe on rt. Call with questions or concerns and follow-up in 4 wks for re-check. documented in this encounter Nursing Notes 03/05/2011 10:00 AM CDT >> MELL MAGANA Wed March 05, 2011 10:25 AM Patient presents with: Surgical Followup - 02/06 post op left foot 2nd metatarsal Fx. Initial There were no vitals taken for this visit. Mell Magana CMA documented in this encounter Plan of Treatment Not on filedocumented as of this encounter Procedures Procedure Name Priority Date/Time Associated Diagnosis Comme nts XR FOOT LEFT G/E 3 Routine 03/05/2011 10:31 AM Surgery afterca re Results for this VIEWS CDT procedure are i n the results section. documented in this encounter Results X-ray lt Foot G/E 3 vws* (03/05/2011 10:31 AM CDT) Anatomical Region Laterality Modality Foot, Ankle Left Other Specimen (Source) Anatomical Collection Method Collection Time Re ceived Time Location / / Volume Laterality 03/05/2011 10:31 AM CDT Impressions 03/05/2011 2:24 PM CDT FOOT G/E 3 VIEWS LEFT * ??March 05, 2011 1 0:31:00 AM HISTORY: ??Surgical follow-up. COMPARISON: ??02/06/2011. IMPRESSION: ??Plate with screws across t he second toe osteotomy, unchanged. A pin again traverses the toe s of the second digit. Sal F Krysta DPM IMG DIAGNOSTIC IMAGING ORDER BRAYDEN documented in this encounter Visit Diagnoses Diagnosis Surgery aftercare - Primary Other specified aftercare following surg anai documented in this encounter
--- OUTSIDE RECORDS SUMMARY | 2022-05-30 08:48 | XMS_ITS | Encounter Summary ---
:1940 Author Organization [place] Address [address] [place] [address] Care Team Providers Name Role Phone Unavailable Primary Care Provider Unavailable Reason for Visit Reason Comments Surgical Followup 02/06 left foot post op. Encounter Details Date Type Department Care Team Description 06/04/2011 Office Visit [facility] Sal Chaparro aftercare (Primary Dx); Clinic Yumiko Castellanos DPM [place] [address] [place] [address] [place] [phone] [place] [address] Social History Tobacco Use Types [...]
[2022-05-30] MEDS: ACETAMINOPHEN 325 MG TABLET 650 MG PO (09:06)
[2022-05-30 09:13] LABS: Lactate* 2.5 mmol/L (0.5-1.9)
[2022-05-30 09:14] LABS: Basophils Absolute Auto 0.02 K/uL (0.00-0.30); Basophils Percent Auto 0.3 % (0.0-3.0); Eosinophils Absolute Auto 0.01 K/uL (0.00-0.50); Eosinophils Percent Auto 0.2 % (0.0-7.0); Hematocrit 32.6 % (37.0-53.0); Hemoglobin* 10.4 gm/dL (13.5-17.5); Lymphocytes Percent Auto 2.5 % (20-44); Mean Corpuscular HGB Conc 32 gm/dL (32-36); Mean Corpuscular Hemoglobin 30 pg (26-34); Mean Corpuscular Volume 94 fL (80-100); Monocytes Percent Auto 5.2 % (0.0-11.0); Neutrophils Percent Auto 91.8 % (42.0-72.0); Platelet Count* 149 K/uL (140-440); RDW Coefficient of Variation % 15.9 % (11.5-15.5); Red Blood Count 3.46 m/uL (4.30-5.90); White Blood Count* 5.93 K/uL (4.50-11.00)
[2022-05-30 09:21] LABS: Slide Review Reflex No
[2022-05-30 09:28] LABS: Albumin* 3.6 g/dL (3.3-5.0); Chloride* 101 mmol/L (96-114)
[2022-05-30 09:29] LABS: Potassium* 4.3 mmol/L (3.6-5.1); Sodium* 139 mmol/L (135-149)
[2022-05-30 09:31] LABS: Bilirubin Total* 0.4 mg/dL (0.1-1.5); Creatinine* 2.4 mg/dL (0.5-1.5); Est. Creatinine Clearance* 22.52; Estimated Glomerular Filt Rate 27 ml/min
[2022-05-30 09:32] LABS: Alanine Aminotransferase* 21 U/L (4-50); Alkaline Phosphatase* 84 U/L (40-150); Aspartate Amino Transferase* 39 U/L (12-35); Blood Urea Nitrogen* 48 mg/dL (7-30); Calcium* 8.8 mg/dL (8.4-10.6); Carbon Dioxide* 27 mmol/L (20-32); Glucose* 112 mg/dL (60-115)
[2022-05-30 09:35] LABS: C Reactive Protein* 1.7 mg/dL (0.5-1.0)
[2022-05-30 09:49] LABS: Procalcitonin* 0.62 ng/mL (<0.50)
--- NOTE | 2022-05-30 09:55 | PC.SOCIAL ---
Social work note: Received call from [facility] social work specialist, Jeanette, sharing that pt received dialysis Thursday, Thursday and Thursday at [facility] in [place]. [facility] provides transportation and is typically scheduled for 11:15 crop picker from [facility]. PT is on a bed hold at [facility] and can return at discharge. Shared this information with Emergency Room RN.
[2022-05-30] MEDS: 0.9 % SODIUM CHLORIDE 250 ml 250 ML IV (09:56)
[2022-05-30 10:03] VITALS: TEMP 36.3
[2022-05-30 10:15] LABS: SARS PCR* Negative SARS-CoV-2 (Negative)
[2022-05-30 11:39] LABS: Appearance Urine Clear (Clear); Bilirubin Urine Negative (Negative); Blood Urine Negative (Negative); Color Urine Yellow (Yellow); Glucose Urine Negative (Negative); Ketones Urine Negative (Negative); Leukocyte Esterase Urine Negative (Negative); Nitrite Urine Negative (Negative); Protein Urine 2+ (Negative); Specific Gravity Urine 1.015 (1.000-1.030); Urobilinogen Urine 0.2 (0.2-1.0); pH Urine 7.5 (5.0-8.5)
[2022-05-30 11:53] LABS: RBC Urine 0-2 (0-2); Squamous Epithelial Cell Urine Few (None-Few); WBC Urine 0-2 (0-5)
== END 2022-05-30 11:43 | disposition home or self-care (01) ==
PROVIDERS: Emergency Provider Family Medicine; PCP Family Medicine
DX: T50.Z95A Adverse effect of other vaccines and biological substances, initial encounter (principal); R50.9 Fever, unspecified
CPT/HCPCS: 36415; 71045; 80053; 81001; 83605; 84145; 85025; 86140; 87040; 87635; 96360; 99284; A9270; J7050

== ENCOUNTER 2022-05-30 16:07 | Emergency (ER) | payer MEDICARE, BC, SELFPAY ==
[2022-05-30] VITALS (15 sets, daily range): BP systolic 75–169; BP diastolic 46–92; PULSE 81–109; RESP 16–18; TEMP 37.7–37.9; O2SAT 95–97; BMI 25.2
--- NOTE | 2022-05-30 16:30 | ED_ITS ---
HPI - General Adult General Time Seen by Provider: 16:32 <Lizzy Peña MD - Last Filed: 05/30/22 20:16> Date Seen: 05/30/22 <Lizzy Peña MD - Last Filed: 05/30/22 20:16> Chief complaint: Nausea/Vomiting <Lizzy Peña MD - Last Filed: 05/30/22 20:16> Stated complaint: shaking and vomiting after dialysis <Lizzy Peña MD - Last Filed: 05/30/22 20:16> Time Seen by Provider: 05/30/22 16:14 <Lizzy Peña MD - Last Filed: 05/30/22 20:16> Source: patient, family and RN notes reviewed <Lizzy Peña MD - Last Filed: 05/30/22 20:16> Mode of arrival: wheelchair (Brought back by daughter from dialysis) <Lizzy tang MD - Last Filed: 05/30/22 20:16> Limitations: no limitations <Lizzy Peña MD - Last Filed: 05/30/22 20:16> History of Present Illness HPI narrative: Patient returns with his daughter after dialysis with return of his fever, episode of phlegmy type emesis without food in it after the fever started. He had been here earlier this morning, please review that note as well. He left to go to dialysis. He went to dialysis without problem, no fever. At the end of dialysis when his daughter went to pick him up he seemed shaky again. He was starting to develop a temperature again at that point. It was probably about somewhere between 4-6 hours after his last dose of Tylenol. Complained of some neck pain with a fever. He had had some water and a granola type bar prior to going to dialysis, that was all he had eaten this morning. After dialysis she did give him some Tylenol and then took him to [facility] where he had a couple bites of a hamburger. He did not throw up any of his food. He is feeling weak and just does not feel well, no specific symptoms. Again, just had his 4th COVID booster yesterday and has reacted poorly with prior COVID boosters. Daughter also revealed that they lost their mom who had COPD and contracted COVID. That just happened within the last few months. Patient had not seen his is he had been in the hospital and rehabilitation center, likely had COVID at some point within his 3 month hospitalization. Dose of Tylenol given by daughter around 330 or so was 650 mg. In his workup earlier, had normal portable chest x-ray. Did have 2 blood cultures drawn which are pending obviously. CBC with normal white blood count stable hemoglobin. Procalcitonin was mildly elevated but again can be affected by renal disease. Urinalysis was not showing any evidence of infection. Lactate was mildly elevated at 2.5 but patient was febrile and had not ate or drank overnight. There was no definitive focal source of infection. <Lizzy Peña MD - Last Filed: 05/30/22 20:16> Related Data Home medications: Home Medications Medication Instructions Recorded Confirmed acetaminophen 325 mg capsule 325 mg PO ONCE PRN 05/20/22 apixaban 2.5 mg tablet (Eliquis) 2.5 mg PO BID 05/20/22 atorvastatin 40 mg tablet 40 mg PO QDAY 05/20/22 diclofenac 75 mg-misoprostol 200 1 tab PO BID 05/20/22 mcg tablet,immediate,delayed release (Arthrotec) furosemide 20 mg tablet 40 mg PO QDAY 05/20/22 metoprolol tartrate 50 mg tablet 50 mg PO BID 05/20/22 pramipexole 0.5 mg tablet 0.5 mg PO QDAY 05/20/22 terazosin 5 mg capsule 5 mg PO .pm 05/20/22 <Lizzy Peña MD - Last Filed: 05/30/22 20:16> Allergies/adverse reactions: Allergies Allergy/AdvReac Type Severity Reaction Status Date / Time penicillin V Allergy Mild Unknown Verified 05/14/22 12:13 amlodipine Allergy Unknown Unknown Verified 05/14/22 12:13 procaine Allergy Unknown Unknown Verified 05/14/22 12:13 <Lizzy Peña MD - Last Filed: 05/30/22 20:16> Review of Systems Status of ROS: Reports: 10 or more systems reviewed and unremarkable except as noted in History and below <Lizzy Peña MD - Last Filed: 05/30/22 20:16> [facility] Medical History: Medical History (Updated 05/31/22 @ 11:02 by Missael Espinoza MD) Arthritis CVA (cerebral vascular accident) History of bronchitis Hyperlipidemia Hypertension <Lizzy Peña MD - Last Filed: 05/30/22 20:16> Surgical History: Surgical History (Updated 05/20/22 @ 10:12 by Lianna Shen [facility]) H/O cardiac radiofrequency ablation History of fusion of cervical spine (~2006) History of lung surgery (~1984) History of spinal fusion (~1978) <Lizzy Peña MD - Last Filed: 05/30/22 20:16> Family History: Family History (Updated 05/20/22 @ 10:16 by Lianna Shen [facility]) Mother Stroke Breast cancer Father High blood pressure Abdominal aortic aneurysm <Lizzy Peña MD - Last Filed: 05/30/22 20:16> Social History: Social History Smoking Status: Never smoker Do you use any of these nicotine containing products: None Second hand tobacco smoke exposure: Yes (remote) How often do you have a drink containing alcohol: 2-3 times a week How many standard drinks containing alcohol do you have on a typical day: 1 or 2 How often do you have six or more drinks on one occasion: Never AUDIT-C Alcohol total score: 3 Non-prescribed substance use: denies use service: Yes <Lizzy Peña MD - Last Filed: 05/30/22 20:16> Exam Const: Vital Signs, click to edit/add: Vital Signs - 24 hr 05/31/22 05:30 05/31/22 06:30 05/31/22 07:00 Temperature Pulse Rate [Left P ulse Oximeter] 72 70 87 Respiratory Rate 16 16 Blood Pressure [Le ft Upper Arm] 89/57 L 113/69 118/72 Pulse Oximetry 98 99 99 Oxygen Delivery Me thod Nasal Cannula Nasal Cannula Nasal Cannula Oxygen Flow Rate 2 2 05/31/22 07:30 05/31/22 08:00 05/31/22 08:30 Temperature 98.3 F Pulse Rate [Left P ulse Oximeter] 82 87 Respiratory Rate Blood Pressure [Le ft Upper Arm] 94/55 L 112/67 120/65 Pulse Oximetry 95 97 Oxygen Delivery Me thod Nasal Cannula Nasal Cannula Oxygen Flow Rate 05/31/22 10:14 05/31/22 09:00 05/31/22 10:00 Temperature 99.1 F 99.1 F Pulse Rate [Left P ulse Oximeter] 80 86 Respiratory Rate 16 16 Blood Pressure [Le ft Upper Arm] 107/58 L 109/72 Pulse Oximetry 97 99 Oxygen Delivery Me thod Nasal Cannula Nasal Cannula Oxygen Flow Rate 2 2 05/31/22 09:30 Temperature Pulse Rate [Left P ulse Oximeter] 90 Respiratory Rate Blood Pressure [Le ft Upper Arm] 150/106 H Pulse Oximetry 97 Oxygen Delivery Me thod Nasal Cannula Oxygen Flow Rate 2 <Lizzy Peña MD - Last Filed: 05/30/22 20:16> Vital Signs, click to edit/add: Vital Signs - 24 hr 05/31/22 05:30 05/31/22 06:30 05/31/22 07:00 Temperature Pulse Rate [Left P ulse Oximeter] 72 70 87 Respiratory Rate 16 16 Blood Pressure [Le ft Upper Arm] 89/57 L 113/69 118/72 Pulse Oximetry 98 99 99 Oxygen Delivery Me thod Nasal Cannula Nasal Cannula Nasal Cannula Oxygen Flow Rate 2 2 05/31/22 07:30 05/31/22 08:00 05/31/22 08:30 Temperature 98.3 F Pulse Rate [Left P ulse Oximeter] 82 87 Respiratory Rate Blood Pressure [Le ft Upper Arm] 94/55 L 112/67 120/65 Pulse Oximetry 95 97 Oxygen Delivery Me thod Nasal Cannula Nasal Cannula Oxygen Flow Rate 05/31/22 10:14 05/31/22 09:00 05/31/22 10:00 Temperature 99.1 F 99.1 F Pulse Rate [Left P ulse Oximeter] 80 86 Respiratory Rate 16 16 Blood Pressure [Le ft Upper Arm] 107/58 L 109/72 Pulse Oximetry 97 99 Oxygen Delivery Me thod Nasal Cannula Nasal Cannula Oxygen Flow Rate 2 2 05/31/22 09:30 Temperature Pulse Rate [Left P ulse Oximeter] 90 Respiratory Rate Blood Pressure [Le ft Upper Arm] 150/106 H Pulse Oximetry 97 Oxygen Delivery Me thod Nasal Cannula Oxygen Flow Rate 2 <Kannan Darby MD - Last Filed: 06/01/22 05:01> Documenting provider has reviewed patient's vital signs: yes <Lizzy Peña MD - Last Filed: 05/30/22 20:16> Common normals: no apparent distress, oriented x3, no limitations and alert <Lizzy Peña MD - Last Filed: 05/30/22 20:16> General appearance: ill appearing (Looks like he does not feel well.) <Lizzy Peña MD - Last Filed: 05/30/22 20:16> HENMT: Common normals: normocephalic, head/scalp atraumatic and hearing grossly normal bilaterally <Lizzy Peña MD - Last Filed: 05/30/22 20:16> Head and scalp: normocephalic and atraumatic <Lizzy Peña MD - Last Filed: 05/30/22 20:16> Eye: Common normals: PERRL, EOMs intact bilaterally, conjunctivae normal and no scleral icterus <Lizzy Peña MD - Last Filed: 05/30/22 20:16> Conjunctiva: conjunctiva(e) normal <Lizzy Peña MD - Last Filed: 05/30/22 20:16> Pupil: PERRL <Lizzy Peña MD - Last Filed: 05/30/22 20:16> Neck & C-Spine: Common normals: full ROM, no lymphadenopathy, supple, no meningeal signs, no JVD and thyroid normal <Lizzy Peña MD - Last Filed: 05/30/22 20:16> Thyroid: thyroid normal <Lizzy Peña MD - Last Filed: 05/30/22 20:16> Chest: Common normals: inspection of chest normal (Has catheter for dialysis in his right upper chest wall without concerns) <Lizzy Peña MD - Last Filed: 05/30/22 20:16> Resp: Common normals: normal respiratory effort, no retractions, no use of accessory muscles and clear to auscultation bilaterally <Lizzy Taylor MD - Last Filed: 05/30/22 20:16> Auscultation: clear to auscultation bilaterally <Lizzy Peña MD - Last Filed: 05/30/22 20:16> Cardio: Common normals: no JVD, regular rate, regular rhythm, S1 normal heart sound, S2 normal heart sound, no gallops, no clicks and no murmurs <Lizzy Peña MD - Last Filed: 05/30/22 20:16> Rate: regular rate <Lizzy Peña MD - Last Filed: 05/30/22 20:16> Rhythm: regular rhythm <Lizzy Peña MD - Last Filed: 05/30/22 20:16> Heart sounds: S1 normal and S2 normal <Lizzy Peña MD - Last Filed: 05/30/22 20:16> Extremity: Common normals: normal to inspection, full ROM, normal capillary refill, no joint enlargement, no clubbing, cyanosis or edema, no calf tenderness and no pedal edema <Lizzy Peña MD - Last Filed: 05/30/22 20:16> Neuro: Common normals: oriented x3 <Lizzy Peña MD - Last Filed: 05/30/22 20:16> Sensorium/orientation: alert <Lizzy Peña MD - Last Filed: 05/30/22 20:16> Meningeal signs: no meningeal signs <Lizzy Peña MD - Last Filed: 05/30/22 20:16> Course Course Hospital Course: Will repeat some of his blood work, redraw set of blood cultures. He had Tylenol from his daughter bed to go and will not re-dose yet. We will give him 4 mg IV Zofran to help with the nausea. Did speak with our hospitalist briefly just before 5:00 p.m.. He will contact me when he is done with his current duties and we will discuss this case. My thought is for the patient to be hospitalized here on observation. This point I am not thinking of initiating antibiotics but we certainly will wait to see where his labs are and if there are any significant changes. <Lizzy Peña MD - Last Filed: 05/30/22 20:16> Reevaluation(s) Reevaluation #1: Have spoken with both daughters tumor now here. His blood pressure around 530 was noted to drop to 75/46 and 85/52 with a pulse in the 80s. S spoken with our hospitalists in in light of this new hypotension, concern for sepsis certainly exists. Pharmacy has assisted in getting doses of vancomycin and cefepime for possible sepsis. I have ordered a chest abdomen and pelvis CT. His daughter whom is an ER nurse was able to tell me that he had an abscess on his psoas muscle that he went to [facility] and had an incision and drainage a while back. He is not complaining of pain here now but we certainly will look at that. His biggest complaint right now is neck pain and headache. I will do cervical spine CT will use over in imaging. <Lizzy Peña MD - Last Filed: 05/30/22 20:16> Time: 18:06 <Lizzy Peña MD - Last Filed: 05/30/22 20:16> Reevaluation #2: Have reviewed with the daughters the CT report from the chest abdomen pelvis and his soft tissue neck. There are some findings in that left pelvis area that are nonspecific but certainly not definite for abscess. I think we will have to watch him. The warehouse operations associate has not been able to call facili ties yet but will be doing so to see if there is any possibility of transfer. Otherwise patient may have to stay here. His daughter whom is the nurse also alluded to the fact that he went into [facility] when he was down in [place] and had thrombus in his veins in his right neck. She did state if he would need a central line it may have to go on the left because she is unsure if these had completely cleared. He is back on Eliquis at this time. The [facility]IC and the thrombus were when he was not on Eliquis. <Lizzy Peña MD - Last Filed: 05/30/22 20:16> Time: 19:43 <Lizzy Peña MD - Last Filed: 05/30/22 20:16> Reevaluation #3: Introduced myself to patient. Patient's blood pressure improved to 120s over 70s. Patient remains otherwise stable in the emergency department. No beds available in the [facility], nor anywhere else in the region. Will monitor the patient overnight. If blood pressure remains stable and patient is feeling better, anticipate discharge in the morning. Symptoms today could be related to sepsis but also may be from patient's recent COVID vaccine, with post dialysis hypotension resolved after minimal fluid bolus. Plan for repeat labs unless transfer becomes available. 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 Went to dialysis and return to the emergency department with hypotension. Hypotension resolved after 250 mL fluid but labs demonstrate normal white blood slight elevation in the CRP, slight elevation of the procalcitonin, mild elevation in the lactate. <Kannan Darby MD - Last Filed: 06/01/22 05:01> Time: 20:54 <Kannan Darby MD - Last Filed: 06/01/22 05:01> Additional Reevaluation(s): 9:33 p.m. care discussed with used equipment sales representative at [place], at this point does not meet that level of care. patient is now normotensive and resting comfortably. Will monitor in the emergency department overnight pending cultures and clinical course. If blood pressures improved and fever resolves, consider discharge with oral antibiotics pending blood cultures if no beds become available. 12:31 a.m. patient remains finally stable without hypotension and resting comfortably. 7:43 a.m. patient rested comfortably during the night and remained vital is stable. Repeat labs this morning demonstrate normal lactate as well as normal w nicole blood cell count, white blood cell count actually has gone down a little bit overnight. Patient is feeling better this morning. Given clinical improvement, patient likely can be discharged today with outpatient follow-up. <Kannan Darby MD - Last Filed: 06/01/22 05:01> Vital Signs Vital signs: Initial Vital Signs Temperature 99.8 F H 05/30/22 16:15 Temperature Source Temporal Artery Scan 05/30/22 16:15 Pulse Rate 108 H 08/12/22 16:15 Pulse Rhythm 05/30/22 16:15 Pulse Strength 3+ Normal 05/30/22 16:15 Respiratory Rate 16 05/30/22 16:15 Blood Pressure 169/92 H 05/30/22 16:15 Blood Pressure Mean 117 05/30/22 16:15 Blood Pressure Position Supine 05/30/22 16:15 Pulse Oximetry 95 05/30/22 16:15 Oxygen Delivery Method 05/30/22 16:15 Vital Signs Temperature 99.8 F H 05/30/22 16:15 Pulse Rate 108 H 05/30/22 16:15 Respiratory Rate 16 05/30/22 16:15 Blood Pressure 169/92 H 05/30/22 16:15 Pulse Oximetry 95 05/30/22 16:15 Oxygen Delivery Method 05/30/22 16:15 Temperature 99.1 F 05/31/22 10:14 Pulse Rate 86 05/31/22 10:00 Respiratory Rate 16 05/31/22 10:00 Blood Pressure 109/72 05/31/22 10:00 Pulse Oximetry 99 05/31/22 10:00 Oxygen Delivery Method 05/31/22 10:00 Oxygen Flow Rate 2 05/31/22 10:00 <Lizzy Peña MD - Last Filed: 05/30/22 20:16> Initial Vital Signs Temperature 99.8 F H 05/30/22 16:15 Temperature Source Temporal Artery Scan 05/30/22 16:15 Pulse Rate 108 H 05/30/22 16:15 Pulse Rhythm 05/30/22 16:15 Pulse Strength 3+ Normal 05/30/22 16:15 Respiratory Rate 16 05/30/22 16:15 Blood Pressure 169/92 H 05/30/22 16:15 Blood Pressure Mean 117 05/30/22 16:15 Blood Pressure Position Supine 05/30/22 16:15 Pulse Oximetry 95 05/30/22 16:15 Oxygen Delivery Method 05/30/22 16:15 Vital Signs Temperature 99.8 F H 05/30/22 16:15 Pulse Rate 108 H 05/30/22 16:15 Respiratory Rate 16 05/30/22 16:15 Blood Pressure 169/92 H 05/30/22 16:15 Pulse Oximetry 95 05/30/22 16:15 Oxygen Delivery Method 05/30/22 16:15 Temperature 99.1 F 05/31/22 10:14 Pulse Rate 86 05/31/22 10:00 Respiratory Rate 16 05/31/22 10:00 Blood Pressure 109/72 05/31/22 10:00 Pulse Oximetry 99 05/31/22 10:00 Oxygen Delivery Method 05/31/22 10:00 Oxygen Flow Rate 2 05/31/22 10:00 <Kannan Darby MD - Last Filed: 06/01/22 05:01> Medical Decision Making Lab Data Labs: Lab Results 05/30/22 05/30/22 05/30/22 Range/Units 17:18 17:18 17:18 WBC 4.93 (4.50-11.00) K/uL RBC 3.35 L (4.30-5.90) m/uL Hgb 10.2 L (13.5-17.5) gm/dL Hct 30.9 L (37.0-53.0) % MCV 92 (80-100) fL MCH 30 (26-34) pg MCHC 33 (32-36) gm/dL RDW Coeff of Tosha 15.7 H (11.5-15.5) % Plt Count 134 L (140-440) K/uL Neut % (Auto) 90.9 H (42.0-72.0) % Lymph % (Auto) 2.8 L (20-44) % [place] % (Auto) 5.5 (0.0-11.0) % Eos % (Auto) 0.2 (0.0-7.0) % Baso % (Auto) 0.4 (0.0-3.0) % Neut # (Auto) 4.50 (1.7-7.0) K/uL Lymph # (Auto) 0.10 L (0.90-2.90) K/uL [place] # (Auto) 0.30 (0.00-0.90) K/UL Eos # (Auto) 0.01 (0.00-0.50) K/uL Baso # (Auto) 0.02 (0.00-0.30) K/uL Abs Immat Gran (auto) 0.01 (0.00-0.30) K/uL Sodium 136 (135-149) mmol/L Potassium 3.4 L (3.6-5.1) mmol/L Chloride 98 (96-114) mmol/L Carbon Dioxide 32 (20-32) mmol/L BUN 19 (7-30) mg/dL Creatinine 1.2 (0.5-1.5) mg/dL Estimated Creat Clear 45.04 Estimated GFR 62 ml/min Glucose 142 H (60-115) mg/dL Lactate 2.3 H (0.5-1.9) mmol/L Calcium 8.3 L (8.4-10.6) mg/dL Total Bilirubin 0.6 (0.1-1.5) mg/dL AST 49 H (12-35) U/L ALT 24 (4-50) U/L Alkaline Phosphatase 90 (40-150) U/L Troponin I 0.04 (0.01-0.04) ng/mL C-Reactive Protein 4.8 H (0.5-1.0) mg/dL Total Protein 6.7 (6.0-8.3) g/dL Albumin 3.4 (3.3-5.0) g/dL Lipase 98 (23-300) U/L Procalcitonin 1.09 H (<0.50) ng/mL 05/30/22 05/31/22 05/31/22 Range/Units 17:18 07:08 07:08 WBC 3.46 L (4.50-11.00) K/uL RBC 3.19 L (4.30-5.90) m/uL Hgb 9.7 L (13.5-17.5) gm/dL Hct 30.1 L (37.0-53.0) % MCV 94 (80-100) fL MCH 30 (26-34) pg MCHC 32 (32-36) gm/dL RDW Coeff of Tosha 15.7 H (11.5-15.5) % Plt Count 107 L (140-440) K/uL Neut % (Auto) 79.7 H (42.0-72.0) % Lymph % (Auto) 7.5 L (20-44) % [place] % (Auto) 9.0 (0.0-11.0) % Eos % (Auto) 2.9 (0.0-7.0) % Baso % (Auto) 0.6 (0.0-3.0) % Neut # (Auto) 2.80 (1.7-7.0) K/uL Lymph # (Auto) 0.30 L (0.90-2.90) K/uL [place] # (Auto) 0.30 (0.00-0.90) K/UL Eos # (Auto) 0.10 (0.00-0.50) K/uL Baso # (Auto) 0.00 (0.00-0.30) K/uL Abs Immat Gran (auto) 0.01 (0.00-0.30) K/uL Sodium (135-149) mmol/L Potassium (3.6-5.1) mmol/L Chloride (96-114) mmol/L Carbon Dioxide (20-32) mmol/L BUN (7-30) mg/dL Creatinine (0.5-1.5) mg/dL Estimated Creat Clear Estimated GFR ml/min Glucose (60-115) mg/dL Lactate 1.0 (0.5-1.9) mmol/L Calcium (8.4-10.6) mg/dL Total Bilirubin (0.1-1.5) mg/dL AST (12-35) U/L ALT (4-50) U/L Alkaline Phosphatase (40-150) U/L Troponin I Cancelled (0.01-0.04) ng/mL C-Reactive Protein (0.5-1.0) mg/dL Total Protein (6.0-8.3) g/dL Albumin (3.3-5.0) g/dL Lipase (23-300) U/L Procalcitonin Cancelled (<0.50) ng/mL <Lizzy Peña MD - Last Filed: 05/30/22 20:16> Lab Results 05/30/22 05/30/22 05/30/22 Range/Units 17:18 17:18 17:18 WBC 4.93 (4.50-11.00) K/uL RBC 3.35 L (4.30-5.90) m/uL Hgb 10.2 L (13.5-17.5) gm/dL Hct 30.9 L (37.0-53.0) % MCV 92 (80-100) fL MCH 30 (26-34) pg MCHC 33 (32-36) gm/dL RDW Coeff of Tosha 15.7 H (11.5-15.5) % Plt Count 134 L (140-440) K/uL Neut % (Auto) 90.9 H (42.0-72.0) % Lymph % (Auto) 2.8 L (20-44) % [place] % (Auto) 5.5 (0.0-11.0) % Eos % (Auto) 0.2 (0.0-7.0) % Baso % (Auto) 0.4 (0.0-3.0) % Neut # (Auto) 4.50 (1.7-7.0) K/uL Lymph # (Auto) 0.10 L (0.90-2.90) K/uL [place] # (Auto) 0.30 (0.00-0.90) K/UL Eos # (Auto) 0.01 (0.00-0.50) K/uL Baso # (Auto) 0.02 (0.00-0.30) K/uL Abs Immat Gran (auto) 0.01 (0.00-0.30) K/uL Sodium 136 (135-149) mmol/L Potassium 3.4 L (3.6-5.1) mmol/L Chloride 98 (96-114) mmol/L Carbon Dioxide 32 (20-32) mmol/L BUN 19 (7-30) mg/dL Creatinine 1.2 (0.5-1.5) mg/dL Estimated Creat Clear 45.04 Estimated GFR 62 ml/min Glucose 142 H (60-115) mg/dL Lactate 2.3 H (0.5-1.9) mmol/L Calcium 8.3 L (8.4-10.6) mg/dL Total Bilirubin 0.6 (0.1-1.5) mg/dL AST 49 H (12-35) U/L ALT 24 (4-50) U/L Alkaline Phosphatase 90 (40-150) U/L Troponin I 0.04 (0.01-0.04) ng/mL C-Reactive Protein 4.8 H (0.5-1.0) mg/dL Total Protein 6.7 (6.0-8.3) g/dL Albumin 3.4 (3.3-5.0) g/dL Lipase 98 (23-300) U/L Procalcitonin 1.09 H (<0.50) ng/mL 05/30/22 05/31/22 05/31/22 Range/Units 17:18 07:08 07:08 WBC 3.46 L (4.50-11.00) K/uL RBC 3.19 L (4.30-5.90) m/uL Hgb 9.7 L (13.5-17.5) gm/dL Hct 30.1 L (37.0-53.0) % MCV 94 (80-100) fL MCH 30 (26-34) pg MCHC 32 (32-36) gm/dL RDW Coeff of Tosha 15.7 H (11.5-15.5) % Plt Count 107 L (140-440) K/uL Neut % (Auto) 79.7 H (42.0-72.0) % Lymph % (Auto) 7.5 L (20-44) % [place] % (Auto) 9.0 (0.0-11.0) % Eos % (Auto) 2.9 (0.0-7.0) % Baso % (Auto) 0.6 (0.0-3.0) % Neut # (Auto) 2.80 (1.7-7.0) K/uL Lymph # (Auto) 0.30 L (0.90-2.90) K/uL [place] # (Auto) 0.30 (0.00-0.90) K/UL Eos # (Auto) 0.10 (0.00-0.50) K/uL Baso # (Auto) 0.00 (0.00-0.30) K/uL Abs Immat Gran (auto) 0.01 (0.00-0.30) K/uL Sodium (135-149) mmol/L Potassium (3.6-5.1) mmol/L Chloride (96-114) mmol/L Carbon Dioxide (20-32) mmol/L BUN (7-30) mg/dL Creatinine (0.5-1.5) mg/dL Estimated Creat Clear Estimated GFR ml/min Glucose (60-115) mg/dL Lactate 1.0 (0.5-1.9) mmol/L Calcium (8.4-10.6) mg/dL Total Bilirubin (0.1-1.5) mg/dL AST (12-35) U/L ALT (4-50) U/L Alkaline Phosphatase (40-150) U/L Troponin I Cancelled (0.01-0.04) ng/mL C-Reactive Protein (0.5-1.0) mg/dL Total Protein (6.0-8.3) g/dL Albumin (3.3-5.0) g/dL Lipase (23-300) U/L Procalcitonin Cancelled (<0.50) ng/mL <Kannan Darby MD - Last Filed: 06/01/22 05:01> Imaging Data CT Chest/Ab/Pelvis: Attestation: I have reviewed the pertinent imaging results. <Lizzy Taylor MD - Last Filed: 05/30/22 20:16> Radiologist's impression: Patient: ELDA MCDUFFIE Facility:?[facility] Patient ID:?[id number] Site Patient ID:?[id number]. Site :?[id number] Study:?CT Chest/Abd/Pelvis W/O-05/30/2022 6:28:16 PM Ordering Physician:Fransico Ball Final Report: HISTORY: Fever. Hypotension. Sepsis. TECHNIQUE: Noncontrast CT of the chest, abdomen and pelvis. COMPARISON: Pelvic CT from 04/24/2022. 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 The patency of the graft is not determined by noncontrast CT. The maximal dilatation of the [place] thoracic aorta is present distally measuring 5.3 cm. There are extensive coronary arteriosclerotic vascular calcifications present. No significant pericardial effusion. No technically enlarged mediastinal or hilar lymph nodes. Small axillary lymph nodes are not technically enlarged by imaging criteria. - On the right, there is a small amount of pleural fluid with chronic pleural thi ckening. There are areas of scarring and/or chronic atelectasis within both lungs. Mild pulmonary emphysema. No definite acute lung infiltrate. No pneumothorax. - Changes of prior cervical fusion. There is a moderate to severe compression deformity of T7. Abdomen and pelvis: There is an abdominal aortic aneurysm with maximal transverse dimensions of the aorta measuring approximately 5.5 x 5 cm. No evidence of rupture. - No focal liver parenchymal abnormality. Gallstone. Gallbladder is mildly distended. Spleen size is and upper limits of normal. Adrenal glands are unremar kable. No focal pancreatic abnormality. Slight perinephric stranding. No hydronephrosis. On the left, there are a few renal lesions which are not fully characterized without contrast. Two appeared mildly hyperdense and could reflect hemorrhagic cysts. Urinary bladder does not appear excessively distended. - Small hiatal hernia. No small bowel obstruction. There is colonic diverticulosis without acute diverticulitis. Small fat containing umbilical region hernia. No abdominal or pelvic fluid collection. There is some stranding associated with the left iliopsoas muscle. This appears somewhat improved from the prior examination with the previously seen intramuscular hematoma having undergone progressive decrease in size. Some infiltration is noted involving the left posterior pelvic soft tissues which may reflect a decubitus ulcer. No definitive fluid collection in that region. No avelina bone destruction involving the lower sacrum. - Remote healed left inferior pubic ramus fracture. Degenerative changes of the hips, sacroiliac joints and within the lumbar spine. Patient has undergone prior lumbar fusion. IMPRESSION: 1. Areas of scarring or atelectasis within the lungs. No definite acute lung infiltrate. There is a small right pleural effusion with chronic pleural thickening. 2. 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 There is an abdominal aortic aneurysm, without rupture. 3. Progressive decrease in size of hematoma associated with the left iliopsoas musculature. There remains stranding associated with that muscle. 4. Mildly distended gallbladder with gallstone. 5. Slight perinephric stranding. No hydronephrosis or obstructive calculus. There are a few left renal lesions which are incompletely characterized but possibly hemorrhagic cysts. 6. Infiltration of the soft tissues of the posterior left pelvis which may relate to a decubitus ulcer. No associated fluid collection or avelina bone destruction. 7. Moderate to severe compression deformity of T7. Dictated by Asa Simon MD @ 05/30/2022 7:29:01 PM Please note that all CT scans at this facility use dose modulation, iterative reconstruction, and/or weight-based dosing when appropriate to reduce radiation dose to as low as reasonably achievable. Dictated by: Asa Simon MD @ 05/30/2022 19:29:08 (Electronic Signature) <Lizzy Peña MD - Last Filed: 05/30/22 20:16> CT- Other: Attestation: I have reviewed the pertinent imaging results. <Lizzy Taylor MD - Last Filed: 05/30/22 20:16> Radiologist's impression: Patient: ELDA MCDUFFIE Facility:?[facility] Patient ID:?[id number] Site Patient ID:?[id number]. Site :?[id number] Study:?CT ST Neck W/O-05/30/2022 6:28:47 PM Ordering Physician:Fransico Ball Final Report: INDICATION: Fever, hypotension, sepsis. TECHNIQUE: CT soft tissue of the neck without contrast. COMPARISON: None. FINDINGS: Skull base: Unremarkable. Pharynx/Larynx/Trachea: Epiglottis is normal. Airway is patent. Small laryngocele right aspect of the supraglottic airway. Dental streak artifact limits evaluation of the oral cavity. Adjacent soft tissues are otherwise normal. Salivary glands: Unremarkable. Thyroid gland: Unremarkable. No significant nodules. Lymph nodes: No lymphadenopathy. Vessels: Calcified atherosclerosis of the carotid bowls. Partially visualize right subclavian approach central line. Partially visualize descending thoracic aorta stent graft. Bones: Cervical spine degenerative changes. C4-C6 ACDF. Misc: No inflammation, mass or fluid collection. Lung apices: Please refer to separate CT chest. IMPRESSION: 1. No acute abnormality on this noncontrast CT neck. No mass, lymphadenopathy, or focal fluid collection. Please note that all CT scans at this facility use dose modulation, iterative reconstruction, and/or weight-based dosing when appropriate to reduce radiation dose to as low as reasonably achievable. Dictated by Kameron Ignacio MD @ 05/30/2022 7:37:24 PM (Electronic Signature) <Lizzy Peña MD - Last Filed: 05/30/22 20:16> ECG Data Attestation: I personally reviewed and interpreted this ECG as follows: (Sinus tachycardia, 103 beats per minute, prolonged QT at 644 milliseconds) <Lizzy Peña MD - Last Filed: 05/30/22 20:16> Prior ECG tracings: not available for review <Lizzy Peña MD - Last Filed: 05/30/22 20:16> Discharge Plan Discharge Clinical Impression: Adverse effect of COVID-19 vaccine, Fever <Lizzy Peña MD - Last Filed: 05/30/22 20:16> Patient Disposition: Home w/ Parent or Adult <Lizzy Peña MD - Last Filed: 05/30/22 20:16> Condition: Improved <Lizzy Peña MD - Last Filed: 05/30/22 20:16> Additional Instructions: Rest, fluids, continue medications at home, cefdinir per pharmacy(cannot use Levaquin due to interaction with amiodarone, (. Recheck with primary care in 48 hours for follow-up culture results and general status, call and return to ED any time sooner problems or concerns, fever, rigors or other concerns. At this point suspect that this was related to his COVID shot but need to rule out any bacteremia and this has been done with cultures patient has been stable overnight. <Lizzy Peña MD - Last Filed: 05/30/22 20:16> Activity Level: Light activity <Lizzy Peña MD - Last Filed: 05/30/22 20:16> Light activity <Kannan Darby MD - Last Filed: 06/01/22 05:01> Discharge Diet: Regular <Lizzy Peña MD - Last Filed: 05/30/22 20:16> Regular <Kannan Darby MD - Last Filed: 06/01/22 05:01> Prescriptions: No Action metoprolol tartrate 50 mg tablet 50 mg PO BID Label Comments: TAKE ONE TABLET BY MOUTH TWICE A DAY acetaminophen 325 mg capsule 325 mg PO ONCE PRN Eliquis 2.5 mg tablet 2.5 mg PO BID Label Comments: TAKE ONE TABLET BY MOUTH TWICE A DAY atorvastatin 40 mg tablet 40 mg PO QDAY Label Comments: TAKE ONE TABLET BY MOUTH ONCE DAILY diclofenac-misoprostol [Arthrotec 75] 75-200 mg-mcg tablet,IR,delayed rel,biphasic 1 tab PO BID terazosin 5 mg capsule 5 mg PO .pm Label Comments: TAKE ONE CAPSULE BY MOUTH EVERY DAY AT BEDTIME furosemide 20 mg tablet 40 mg PO QDAY Label Comments: TAKE 2 TABLETS (40 MG) BY MOUTH EVERY MORNING. pramipexole 0.5 mg tablet 0.5 mg PO QDAY <Lizzy Peña MD - Last Filed: 05/30/22 20:16> Follow Up/Referrals: Marija Ramirez MD [Primary Care Provider] - <Lizzy Peña MD - Last Filed: 05/30/22 20:16> Stand Alone Forms: MyHealth Info Instructions <Lizzy Peña MD - Last Filed: 05/30/22 20:16>
[2022-05-30] MEDS: ONDANSETRON 2 MG/ML inj 4 MG IVP (17:06)
[2022-05-30 17:24] LABS: Lactate* 2.3 mmol/L (0.5-1.9)
[2022-05-30 17:25] LABS: Basophils Absolute Auto 0.02 K/uL (0.00-0.30); Basophils Percent Auto 0.4 % (0.0-3.0); Eosinophils Absolute Auto 0.01 K/uL (0.00-0.50); Eosinophils Percent Auto 0.2 % (0.0-7.0); Hematocrit 30.9 % (37.0-53.0); Hemoglobin* 10.2 gm/dL (13.5-17.5); Immature Granulocytes Abs Auto 0.01 K/uL (0.00-0.30); Lymphocytes Percent Auto 2.8 % (20-44); Mean Corpuscular HGB Conc 33 gm/dL (32-36); Mean Corpuscular Hemoglobin 30 pg (26-34); Mean Corpuscular Volume 92 fL (80-100); Monocytes Percent Auto 5.5 % (0.0-11.0); Neutrophils Percent Auto 90.9 % (42.0-72.0); Platelet Count* 134 K/uL (140-440); RDW Coefficient of Variation % 15.7 % (11.5-15.5); Red Blood Count 3.35 m/uL (4.30-5.90); White Blood Count* 4.93 K/uL (4.50-11.00)
[2022-05-30 17:26] LABS: Slide Review Reflex No
[2022-05-30 17:39] LABS: Chloride* 98 mmol/L (96-114); Sodium* 136 mmol/L (135-149)
[2022-05-30 17:40] LABS: Albumin* 3.4 g/dL (3.3-5.0); Potassium* 3.4 mmol/L (3.6-5.1)
[2022-05-30 17:43] LABS: Alanine Aminotransferase* 24 U/L (4-50); Alkaline Phosphatase* 90 U/L (40-150); Aspartate Amino Transferase* 49 U/L (12-35); Bilirubin Total* 0.6 mg/dL (0.1-1.5); Blood Urea Nitrogen* 19 mg/dL (7-30); Calcium* 8.3 mg/dL (8.4-10.6); Carbon Dioxide* 32 mmol/L (20-32); Creatinine* 1.2 mg/dL (0.5-1.5); Est. Creatinine Clearance* 45.04; Estimated Glomerular Filt Rate 62 ml/min; Glucose* 142 mg/dL (60-115); Lipase* 98 U/L (23-300); Total Protein* 6.7 g/dL (6.0-8.3)
[2022-05-30] MEDS: 0.9 % SODIUM CHLORIDE 250 ml 250 ML IV (17:45)
[2022-05-30 17:46] LABS: C Reactive Protein* 4.8 mg/dL (0.5-1.0)
--- NOTE | 2022-05-30 17:50 | CRLHL7_ITS ---
For Patients: As a result of the Century Cures Act, medical imaging exams and procedure reports are released immediately into your electronic medical record. You may view this report before your referring provider. If you have questions, please contact your health care provider. HISTORY: Fever. Hypotension. Sepsis. TECHNIQUE: Noncontrast CT of the chest, abdomen and pelvis. COMPARISON: Pelvic CT from 04/24/2022. 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 The patency of the graft is not determined by noncontrast CT. The maximal dilatation of the [place] thoracic aorta is present distally measuring 5.3 cm. There are extensive coronary arteriosclerotic vascular calcifications present. No significant pericardial effusion. No technically enlarged mediastinal or hilar lymph nodes. Small axillary lymph nodes are not technically enlarged by imaging criteria. - On the right, there is a small amount of pleural fluid with chronic pleural thickening. There are areas of scarring and/or chronic atelectasis within both lungs. Mild pulmonary emphysema. No definite acute lung infiltrate. No pneumothorax. - Changes of prior cervical fusion. There is a moderate to severe compression deformity of T7. Abdomen and pelvis: There is an abdominal aortic aneurysm with maximal transverse dimensions of the aorta measuring approximately 5.5 x 5 cm. No evidence of rupture. - No focal liver parenchymal abnormality. Gallstone. Gallbladder is mildly distended. Spleen size is and upper limits of normal. Adrenal glands are unremarkable. No focal pancreatic abnormality. Slight perinephric stranding. No hydronephrosis. On the left, there are a few renal lesions which are not fully characterized without contrast. Two appeared mildly hyperdense and could reflect hemorrhagic cysts. Urinary bladder does not appear excessively distended. - Small hiatal hernia. No small bowel obstruction. There is colonic diverticulosis without acute diverticulitis. Small fat containing umbilical region hernia. No abdominal or pelvic fluid collection. There is some stranding associated with the left iliopsoas muscle. This appears somewhat improved from the prior examination with the previously seen intramuscular hematoma having undergone progressive decrease in size. Some infiltration is noted involving the left posterior pelvic soft tissues which may reflect a decubitus ulcer. No definitive fluid collection in that region. No avelina bone destruction involving the lower sacrum. - Remote healed left inferior pubic ramus fracture. Degenerative changes of the hips, sacroiliac joints and within the lumbar spine. Patient has undergone prior lumbar fusion. IMPRESSION: 1. Areas of scarring or atelectasis within the lungs. No definite acute lung infiltrate. There is a small right pleural effusion with chronic pleural thickening. 2. 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 There is an abdominal aortic aneurysm, without rupture. 3. Progressive decrease in size of hematoma associated with the left iliopsoas musculature. There remains stranding associated with that muscle. 4. Mildly distended gallbladder with gallstone. 5. Slight perinephric stranding. No hydronephrosis or obstructive calculus. There are a few left renal lesions which are incompletely characterized but possibly hemorrhagic cysts. 6. Infiltration of the soft tissues of the posterior left pelvis which may relate to a decubitus ulcer. No associated fluid collection or avelina bone destruction. 7. Moderate to severe compression deformity of T7. Dictated by Asa Simon MD @ 05/30/2022 7:29:01 PM Please note that all CT scans at this facility use dose modulation, iterative reconstruction, and/or weight-based dosing when appropriate to reduce radiation dose to as low as reasonably achievable. Dictated by: Asa Simon MD @ 05/30/2022 19:29:08 (Electronically Signed)
[2022-05-30 17:56] LABS: Troponin I* 0.04 ng/mL (0.01-0.04)
[2022-05-30 18:00] LABS: Procalcitonin* 1.09 ng/mL (<0.50)
--- NOTE | 2022-05-30 18:11 | CRLHL7_ITS ---
For Patients: As a result of the Century Cures Act, medical imaging exams and procedure reports are released immediately into your electronic medical record. You may view this report before your referring provider. If you have questions, please contact your health care provider. INDICATION: Fever, hypotension, sepsis. TECHNIQUE: CT soft tissue of the neck without contrast. COMPARISON: None. FINDINGS: Skull base: Unremarkable. Pharynx/Larynx/Trachea: Epiglottis is normal. Airway is patent. Small laryngocele right aspect of the supraglottic airway. Dental streak artifact limits evaluation of the oral cavity. Adjacent soft tissues are otherwise normal. Salivary glands: Unremarkable. Thyroid gland: Unremarkable. No significant nodules. Lymph nodes: No lymphadenopathy. Vessels: Calcified atherosclerosis of the carotid bowls. Partially visualize right subclavian approach central line. Partially visualize descending thoracic aorta stent graft. Bones: Cervical spine degenerative changes. C4-C6 ACDF. Misc: No inflammation, mass or fluid collection. Lung apices: Please refer to separate CT chest. IMPRESSION: 1. No acute abnormality on this noncontrast CT neck. No mass, lymphadenopathy, or focal fluid collection. Please note that all CT scans at this facility use dose modulation, iterative reconstruction, and/or weight-based dosing when appropriate to reduce radiation dose to as low as reasonably achievable. Dictated by Kameron Ignacio MD @ 05/30/2022 7:37:24 PM (Electronically Signed)
[2022-05-30] MEDS: CEFEPIME HCL 1 GM VIAL IVPB (18:47)
--- NOTE | 2022-05-30 20:49 | ED.NURSE ---
daughters have left and want to be informed of transfer or any changes throughout the night. wilfrido will have her phone on her and called first.
--- NOTE | 2022-05-30 21:26 | ED.NURSE ---
Calls placed to [facility], [facility], [facility] and [facility] [place]. Pt will board in ED overnight with plan to dc home in the morning. Daughter, Raquel updated with POC
[2022-05-30] MEDS: ACETAMINOPHEN 325 MG TABLET 650 MG PO (21:31)
--- NOTE | 2022-05-30 23:00 | ED.NURSE ---
MD Darby updated on pt low b/p and requiring oxygenation during sleeping, no new orders.
[2022-05-31] VITALS (18 sets, daily range): BP systolic 89–150; BP diastolic 53–106; PULSE 70–90; RESP 16–18; TEMP 36.8–37.3; O2SAT 95–99
--- NOTE | 2022-05-31 01:00 | ED.NURSE ---
MD Darby updated on pt vs, continue to monitor b/p q30m, pt sleeping, easily arousable.
--- NOTE | 2022-05-31 02:25 | ED.NURSE ---
Pt awake and denies any pain or concerns at this time, turn and MD Mehnaz leyva in to talk with pt.
--- NOTE | 2022-05-31 04:34 | ED.NURSE ---
T&R patient, void using bed side urinal, pt denies any pain or concerns at this time.
--- NOTE | 2022-05-31 06:59 | ED.NURSE ---
T&R, pt denies any concerns at this time, denies pain. water given
[2022-05-31 07:13] LABS: Basophils Percent Auto 0.6 % (0.0-3.0); Eosinophils Percent Auto 2.9 % (0.0-7.0); Hematocrit 30.1 % (37.0-53.0); Hemoglobin* 9.7 gm/dL (13.5-17.5); Immature Granulocytes Abs Auto 0.01 K/uL (0.00-0.30); Lymphocytes Percent Auto 7.5 % (20-44); Mean Corpuscular HGB Conc 32 gm/dL (32-36); Mean Corpuscular Hemoglobin 30 pg (26-34); Mean Corpuscular Volume 94 fL (80-100); Neutrophils Percent Auto 79.7 % (42.0-72.0); Platelet Count* 107 K/uL (140-440); RDW Coefficient of Variation % 15.7 % (11.5-15.5); Red Blood Count 3.19 m/uL (4.30-5.90); White Blood Count* 3.46 K/uL (4.50-11.00)
[2022-05-31 07:18] LABS: Slide Review Reflex No
--- NOTE | 2022-05-31 09:30 | ED.NURSE ---
Update provided to Raquel. Breakfast ordered.
--- NOTE | 2022-05-31 09:30 | ED.NURSE ---
Update provided to Raquel. Breakfast ordered. Pt turned and repositioned. VSS. Pt using urinal. Denies pain.
[2022-05-31] MEDS: ACETAMINOPHEN 500 MG TABLET 1000 MG PO (10:14)
[2022-05-31] MEDS: AMIODARONE 200 MG TABLET PO (10:15)
[2022-05-31] MEDS: ASCORBIC ACID 500 MG TABLET PO (10:16)
[2022-05-31] MEDS: LACTOBACILLUS ACIDOPHILUS 1 TABLET 2 TAB PO (10:16)
[2022-05-31] MEDS: MIDODRINE HCL 5 MG TABLET PO (10:17)
[2022-05-31] MEDS: OMEPRAZOLE 20 MG CAPSULE DR PO (10:17)
[2022-05-31] MEDS: METOPROLOL TARTRATE 25 MG TABLET PO (10:17)
--- NOTE | 2022-05-31 11:04 | ED.GENADULT ---
HPI - General Adult General Chief complaint: Nausea/Vomiting Stated complaint: shaking and vomiting after dialysis Time Seen by Provider: 05/30/22 16:14 Source: patient, family and RN notes reviewed Mode of arrival: wheelchair (Brought back by daughter from dialysis) Limitations: no limitations Related Data Home Medications Medication Instructions Recorded Confirmed acetaminophen 325 mg capsule 325 mg PO ONCE PRN 05/20/22 apixaban 2.5 mg tablet (Eliquis) 2.5 mg PO BID 05/20/22 atorvastatin 40 mg tablet 40 mg PO QDAY 05/20/22 diclofenac 75 mg-misoprostol 200 1 tab PO BID 05/20/22 mcg tablet,immediate,delayed release (Arthrotec) furosemide 20 mg tablet 40 mg PO QDAY 05/20/22 metoprolol tartrate 50 mg tablet 50 mg PO BID 05/20/22 pramipexole 0.5 mg tablet 0.5 mg PO QDAY 05/20/22 terazosin 5 mg capsule 5 mg PO .pm 05/20/22 Allergies Allergy/AdvReac Type Severity Reaction Status Date / Time penicillin V Allergy Mild Unknown Verified 05/14/22 12:13 amlodipine Allergy Unknown Unknown Verified 05/14/22 12:13 procaine Allergy Unknown Unknown Verified 05/14/22 12:13 [facility] Medical History (Updated 05/31/22 @ 11:02 by Missael Espinoza MD) Arthritis CVA (cerebral vascular accident) History of bronchitis Hyperlipidemia Hypertension Surgical History (Updated 05/20/22 @ 10:12 by Lianna Shen CMA) H/O cardiac radiofrequency ablation History of fusion of cervical spine (~2006) History of lung surgery (~1984) History of spinal fusion (~1978) Family History (Updated 05/20/22 @ 10:16 by Lianna Shen CMA) Mother Stroke Breast cancer Father High blood pressure Abdominal aortic aneurysm Social History Smoking Status: Never smoker Do you use any of these nicotine containing products: None Second hand tobacco smoke exposure: Yes (remote) How often do you have a drink containing alcohol: 2-3 times a week How many standard drinks containing alcohol do you have on a typical day: 1 or 2 How often do you have six or more drinks on one occasion: Never AUDIT-C Alcohol total score: 3 Non-prescribed substance use: denies use service: Yes Exam Const: Vital Signs, click to edit/add: Vital Signs - 24 hr 05/30/22 16:18 05/30/22 17:59 05/30/22 16:15 Temperature 100.3 F H 99.8 F H 99.8 F H Pulse Rate [Left P ulse Oximeter] 108 H 108 H Respiratory Rate 16 16 Blood Pressure [Le ft Upper Arm] 169/92 H 169/92 H Pulse Oximetry 95 95 Oxygen Delivery Me thod Room Air Room Air Oxygen Flow Rate 05/30/22 16:20 05/30/22 16:30 05/30/22 17:00 Temperature Pulse Rate [Left P ulse Oximeter] 108 H 109 H 102 H Respiratory Rate 16 16 16 Blood Pressure [Le ft Upper Arm] 146/80 H 118/69 Pulse Oximetry 95 95 95 Oxygen Delivery Me thod Room Air Room Air Room Air Oxygen Flow Rate 05/30/22 17:15 05/30/22 17:30 05/30/22 17:38 Temperature Pulse Rate [Left P ulse Oximeter] 93 87 92 Respiratory Rate 16 16 16 Blood Pressure [Le ft Upper Arm] 110/61 75/46 L 80/49 L Pulse Oximetry 95 95 95 Oxygen Delivery Me thod Room Air Room Air Room Air Oxygen Flow Rate 05/30/22 23:08 05/30/22 22:00 05/30/22 22:30 Temperature Pulse Rate [Left P ulse Oximeter] 81 81 81 Respiratory Rate 18 16 16 Blood Pressure [Le ft Upper Arm] 93/60 92/53 L 90/49 L Pulse Oximetry 96 96 97 Oxygen Delivery Me thod Nasal Cannula Nasal Cannula Nasal Cannula Oxygen Flow Rate 2 2 2 05/30/22 23:00 05/30/22 22:35 05/30/22 23:30 Temperature Pulse Rate [Left P ulse Oximeter] 81 81 81 Respiratory Rate 16 18 18 Blood Pressure [Le ft Upper Arm] 114/62 111/61 90/51 L Pulse Oximetry 97 96 96 Oxygen Delivery Me thod Nasal Cannula Nasal Cannula Nasal Cannula Oxygen Flow Rate 2 2 2 05/31/22 00:00 05/31/22 00:30 05/31/22 01:00 Temperature Pulse Rate [Left P ulse Oximeter] 81 84 83 Respiratory Rate 18 18 18 Blood Pressure [Le ft Upper Arm] 92/53 L 98/54 L 98/54 L Pulse Oximetry 96 96 96 Oxygen Delivery Me thod Nasal Cannula Nasal Cannula Nasal Cannula Oxygen Flow Rate 2 2 2 05/31/22 01:30 05/31/22 02:00 05/31/22 03:00 Temperature 98.8 F Pulse Rate [Left P ulse Oximeter] 81 79 80 Respiratory Rate 18 16 16 Blood Pressure [Le ft Upper Arm] 91/57 L 140/76 H 104/59 L Pulse Oximetry 96 96 96 Oxygen Delivery Me thod Nasal Cannula Nasal Cannula Nasal Cannula Oxygen Flow Rate 2 2 2 05/31/22 04:00 05/31/22 05:00 05/31/22 05:30 Temperature Pulse Rate [Left P ulse Oximeter] 80 74 72 Respiratory Rate 16 16 16 Blood Pressure [Le ft Upper Arm] 108/53 L 148/84 H 89/57 L Pulse Oximetry 98 98 98 Oxygen Delivery Me thod Nasal Cannula Nasal Cannula Nasal Cannula Oxygen Flow Rate 2 2 2 05/31/22 06:30 05/31/22 07:00 05/31/22 07:30 Temperature Pulse Rate [Left P ulse Oximeter] 70 87 82 Respiratory Rate 16 Blood Pressure [Le ft Upper Arm] 113/69 118/72 94/55 L Pulse Oximetry 99 99 95 Oxygen Delivery Me thod Nasal Cannula Nasal Cannula Nasal Cannula Oxygen Flow Rate 2 05/31/22 08:00 05/31/22 08:30 05/31/22 10:14 Temperature 98.3 F 99.1 F Pulse Rate [Left P ulse Oximeter] 87 Respiratory Rate Blood Pressure [Le ft Upper Arm] 112/67 120/65 Pulse Oximetry 97 Oxygen Delivery Me thod Nasal Cannula Oxygen Flow Rate 05/31/22 09:00 05/31/22 10:00 05/31/22 09:30 Temperature 99.1 F Pulse Rate [Left P ulse Oximeter] 80 86 90 Respiratory Rate 16 16 Blood Pressure [Le ft Upper Arm] 107/58 L 109/72 150/106 H Pulse Oximetry 97 99 97 Oxygen Delivery Me thod Nasal Cannula Nasal Cannula Nasal Cannula Oxygen Flow Rate 2 2 2 Course Course Hospital Course: Will repeat some of his blood work, redraw set of blood cultures. He had Tylenol from his daughter bed to go and will not re-dose yet. We will give him 4 mg IV Zofran to help with the nausea. Did speak with our hospitalist briefly just before 5:00 p.m.. He will contact me when he is done with his current duties and we will discuss this case. My thought is for the patient to be hospitalized here on observation. This point I am not thinking of initiating antibiotics but we certainly will wait to see where his labs are and if there are any significant changes. Vital Signs Vital signs: Initial Vital Signs Temperature 99.8 F H 05/30/22 16:15 Temperature Source Temporal Artery Scan 05/30/22 16:15 Pulse Rate 108 H 05/30/22 16:15 Pulse Rhythm 05/30/22 16:15 Pulse Strength 3+ Normal 05/30/22 16:15 Respiratory Rate 16 05/30/22 16:15 Blood Pressure 169/92 H 05/30/22 16:15 Blood Pressure Mean 117 05/30/22 16:15 Blood Pressure Position Supine 05/30/22 16:15 Pulse Oximetry 95 05/30/22 16:15 Oxygen Delivery Method 05/30/22 16:15 Vital Signs Temperature 99.8 F H 05/30/22 16:15 Pulse Rate 108 H 05/30/22 16:15 Respiratory Rate 16 05/30/22 16:15 Blood Pressure 169/92 H 05/30/22 16:15 Pulse Oximetry 95 05/30/22 16:15 Oxygen Delivery Method 05/30/22 16:15 Temperature 99.1 F 05/31/22 10:14 Pulse Rate 86 05/31/22 10:00 Respiratory Rate 16 05/31/22 10:00 Blood Pressure 109/72 05/31/22 10:00 Pulse Oximetry 99 05/31/22 10:00 Oxygen Delivery Method 05/31/22 10:00 Oxygen Flow Rate 2 05/31/22 10:00 Medical Decision Making MDM Narrative Medical decision making narrative: Please see above and prior assessments, lab studies, disposition planning. The patient overnight has felt markedly better, he is able eat breakfast well, cultures have been done, CT scanning has been done. At this point he really like to go home, he has been given vancomycin and cefepime I think he could go home, but I would cover with antibiotics until his cultures come back negative. Will give him Levaquin 500 mg now and then 250 mg every other day for 7 days. He will update his primary care doctor within 48 hours, or be seen by mid-level at the [address] [place] [address]. His family is involved in his care in will update us and return with him as needed. I suspect that he has had an exacerbation of his shakiness and feeling poorly from the COVID vaccine, but I think antibiotic coverage until his cultures are negative his appropriate as well. He will be discharged with family Lab Data Labs: Lab Results 05/30/22 05/30/22 05/30/22 Range/Units 17:18 17:18 17:18 WBC 4.93 (4.50-11.00) K/uL RBC 3.35 L (4.30-5.90) m/uL Hgb 10.2 L (13.5-17.5) gm/dL Hct 30.9 L (37.0-53.0) % MCV 92 (80-100) fL MCH 30 (26-34) pg MCHC 33 (32-36) gm/dL RDW Coeff of Tosha 15.7 H (11.5-15.5) % Plt Count 134 L (140-440) K/uL Neut % (Auto) 90.9 H (42.0-72.0) % Lymph % (Auto) 2.8 L (20-44) % Branch % (Auto) 5.5 (0.0-11.0) % Eos % (Auto) 0.2 (0.0-7.0) % Baso % (Auto) 0.4 (0.0-3.0) % Neut # (Auto) 4.50 (1.7-7.0) K/uL Lymph # (Auto) 0.10 L (0.90-2.90) K/uL Branch # (Auto) 0.30 (0.00-0.90) K/UL Eos # (Auto) 0.01 (0.00-0.50) K/uL Baso # (Auto) 0.02 (0.00-0.30) K/uL Abs Immat Gran (auto) 0.01 (0.00-0.30) K/uL Sodium 136 (135-149) mmol/L Potassium 3.4 L (3.6-5.1) mmol/L Chloride 98 (96-114) mmol/L Carbon Dioxide 32 (20-32) mmol/L BUN 19 (7-30) mg/dL Creatinine 1.2 (0.5-1.5) mg/dL Estimated Creat Clear 45.04 Estimated GFR 62 ml/min Glucose 142 H (60-115) mg/dL Lactate 2.3 H (0.5-1.9) mmol/L Calcium 8.3 L (8.4-10.6) mg/dL Total Bilirubin 0.6 (0.1-1.5) mg/dL AST 49 H (12-35) U/L ALT 24 (4-50) U/L Alkaline Phosphatase 90 (40-150) U/L Troponin I 0.04 (0.01-0.04) ng/mL C-Reactive Protein 4.8 H (0.5-1.0) mg/dL Total Protein 6.7 (6.0-8.3) g/dL Albumin 3.4 (3.3-5.0) g/dL Lipase 98 (23-300) U/L Procalcitonin 1.09 H (<0.50) ng/mL 05/30/22 05/31/22 05/31/22 Range/Units 17:18 07:08 07:08 WBC 3.46 L (4.50-11.00) K/uL RBC 3.19 L (4.30-5.90) m/uL Hgb 9.7 L (13.5-17.5) gm/dL Hct 30.1 L (37.0-53.0) % MCV 94 (80-100) fL MCH 30 (26-34) pg MCHC 32 (32-36) gm/dL RDW Coeff of Tosha 15.7 H (11.5-15.5) % Plt Count 107 L (140-440) K/uL Neut % (Auto) 79.7 H (42.0-72.0) % Lymph % (Auto) 7.5 L (20-44) % Branch % (Auto) 9.0 (0.0-11.0) % Eos % (Auto) 2.9 (0.0-7.0) % Baso % (Auto) 0.6 (0.0-3.0) % Neut # (Auto) 2.80 (1.7-7.0) K/uL Lymph # (Auto) 0.30 L (0.90-2.90) K/uL Branch # (Auto) 0.30 (0.00-0.90) K/UL Eos # (Auto) 0.10 (0.00-0.50) K/uL Baso # (Auto) 0.00 (0.00-0.30) K/uL Abs Immat Gran (auto) 0.01 (0.00-0.30) K/uL Sodium (135-149) mmol/L Potassium (3.6-5.1) mmol/L Chloride (96-114) mmol/L Carbon Dioxide (20-32) mmol/L BUN (7-30) mg/dL Creatinine (0.5-1.5) mg/dL Estimated Creat Clear Estimated GFR ml/min Glucose (60-115) mg/dL Lactate 1.0 (0.5-1.9) mmol/L Calcium (8.4-10.6) mg/dL Total Bilirubin (0.1-1.5) mg/dL AST (12-35) U/L ALT (4-50) U/L Alkaline Phosphatase (40-150) U/L Troponin I Cancelled (0.01-0.04) ng/mL C-Reactive Protein (0.5-1.0) mg/dL Total Protein (6.0-8.3) g/dL Albumin (3.3-5.0) g/dL Lipase (23-300) U/L Procalcitonin Cancelled (<0.50) ng/mL Discharge Plan Discharge Clinical Impression: Adverse effect of COVID-19 vaccine, Fever Patient Disposition: Home w/ Parent or Adult Condition: Improved Additional Instructions: Rest, fluids, continue medications at home, cefdinir per pharmacy(cannot use Levaquin due to interaction with amiodarone, (. Recheck with primary care in 48 hours for follow-up culture results and general status, call and return to ED any time sooner problems or concerns, fever, rigors or other concerns. At this point suspect that this was related to his COVID shot but need to rule out any bacteremia and this has been done with cultures patient has been stable overnight. Activity Level: Light activity Discharge Diet: Regular Prescriptions: No Action metoprolol tartrate 50 mg tablet 50 mg PO BID Label Comments: TAKE ONE TABLET BY MOUTH TWICE A DAY acetaminophen 325 mg capsule 325 mg PO ONCE PRN Eliquis 2.5 mg tablet 2.5 mg PO BID Label Comments: TAKE ONE TABLET BY MOUTH TWICE A DAY atorvastatin 40 mg tablet 40 mg PO QDAY Label Comments: TAKE ONE TABLET BY MOUTH ONCE DAILY diclofenac-misoprostol [Arthrotec 75] 75-200 mg-mcg tablet,IR,delayed rel,biphasic 1 tab PO BID terazosin 5 mg capsule 5 mg PO .pm Label Comments: TAKE ONE CAPSULE BY MOUTH EVERY DAY AT BEDTIME furosemide 20 mg tablet 40 mg PO QDAY Label Comments: TAKE 2 TABLETS (40 MG) BY MOUTH EVERY MORNING. pramipexole 0.5 mg tablet 0.5 mg PO QDAY Follow Up/Referrals: Marija Ramirez MD [Primary Care Provider] - Stand Alone Forms: [employer] Info Instructions
[2022-05-31] MEDS: APIXABAN 5 MG TABLET PO (11:49)
--- NOTE | 2022-05-31 12:04 | ED.NURSE ---
Report called to Dasha at [facility].
== END 2022-05-31 12:11 | disposition home or self-care (01) ==
PROVIDERS: Family Medicine; Emergency Provider Family Medicine; PCP Family Medicine
DX: R50.9 Fever, unspecified (principal); T50.B95A Adverse effect of other viral vaccines, initial encounter; N18.6 End stage renal disease; Z99.2 Dependence on renal dialysis
CPT/HCPCS: 36415; 70490; 71045; 71250; 74176; 80053; 81001; 83605; 83690; 84145; 84484; 85025; 86140; 87040; 87635; 96360; 96365; 96366; 96375; 99284; 99285; A9270; J0692; J2405; J3370; J7050

== ENCOUNTER 2022-06-05 13:36 | Outpatient (CLI) | payer MEDICARE, BC, SELFPAY ==
--- OUTSIDE RECORDS SUMMARY | 2022-06-05 13:44 | XMS_ITS | Encounter Summary ---
:1940 Author Organization [facility] Address [address] [place] [address] Care Team Providers Name Role Phone Unavailable Primary Care Provider Unavailable Encounter Details Date Type Department Care Team Description 06/04/2022 Orders Only [facility] Denilson Quinones MD [phone] [place] [address] [place], [place] [phone] (Wo rk) Social History Tobacco Use Types Packs/Day Years Used Date Smoking Tobacco: Never Assessed Sex Assigned at Date Recorded Not on file documented as of this encounter Plan of Treatment Not on filedocumented as of this encounter Procedures Procedure Name Priority Date/Time Associated Diagnosis Comme nts HEMATOLOGY Routine 06/04/2022 Results for thi s procedure are in the resu lts section. CHEMISTRY Routine 06/04/2022 Results for thi s procedure are in the resu lts section. documented in this encounter Results (ABNORMAL) Spectrae Chemistry (06/04/2022) P athologist Signature BUN 37 (H) 6 - 19 [facility] mg/dL [facility] Creatinine 2.15 (H) 0.60 - 1.30 [facility] mg/dL [facility] Comment: Custom Exception BUN/Creatinine Ratio 17.2 10.0 - 20.0 APS SPE CTRA [facility] Sodium 141 136 - 145 mEq/L [facility] Potassium 3.7 3.5 - 5.1 mEq/L [facility] Chloride 103 96 - 108 mEq/L [facility] Bicarbonate (CO2) 30 20 - 31 mEq/L [facility]PS SPEC TRA [facility] Comment: Please note change in reference range. Specimen (Source) Anatomical Collection Method Collection Time Re ceived Time Location / / Volume Laterality 06/04/2022 06/05/2022 6:35 AM CDT Narrative [facility] - 06/05/2022 Unless otherwise specified, test(s) performed at: [facility], [address] [place] [address], [place] [address] [employer]PERVISOR: Raheem Malik M.D., Ph.D For any questions, please call customer service at FREQUENCY:OTHER Resulting Agency Comment Specimen source: Serum Denilson Holly MD LAB BLOOD ORDERABLES Performing Organization Address City/[facility] Phon e Number [facility] (ABNORMAL) HEMATOLOGY (06/04/2022) Analysis Performed At Patho logist Time Signature Hemoglobin 10.1 (L) 14.0 - [facility] 18.0 g/dL [facility] Hemoglobin x 3 30.3 (L) 42.0 - [facility] 54.0 % [facility] Specimen (Source) Anatomical Collection Method Collection Time Re ceived Time Location / / Volume Laterality 06/04/2022 06/05/2022 7:05 AM CDT Narrative [facility] - 06/05/2022 Unless otherwise specified, test(s) performed at: [facility], [address] [place] [address], [place] [address] [employer] SUPERVISOR: Raheem Malik M.D., Ph.D For any questions, please call customer service at FREQUENCY:OTHER Resulting Agency Comment Specimen source: Blood Denilson Holly MD LAB BLOOD ORDERABLES Performing Organization Address City/[facility] Phon e Number [facility] documented in this encounter Visit Diagnoses Not on filedocumented in this encounter
--- OUTSIDE RECORDS SUMMARY | 2022-06-05 13:44 | XMS_ITS ---
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 F June 04, 2022 11:4 7 AM Weight Vital Sign Value Date / Time Estimated Dry Weight 71.5 kg April 21, 2022 11:59 PM Pre-Dialysis 73.70 kg June 04, 2022 11:4 7 AM Post-Dialysis 71.50 kg June 04, 2022 11:4 7 AM Other Other Value Date / Time Height 161 cm May 26, 2022 12:0 0 AM [facility] LAB RESULTS Hematology Result Type Result Value Relevant Reference Interpretation Date Range Hemoglobin x 3 31.5 % Male: 14.0 [...] g/dL; Female: 12.0-16.0 g/dL Platelets 244 1000/mcL 682-888 3206/mcL - May 21, 2022 YARIEL 2.3 % 0.0-4.0% - May 21, 2022 Basophils 0.4 % 0.0-1.5% - May 21, 2022 Eosinophil 2.6 % 0.0-7.0% - May 21, 2022 TIBC 237 mcg/dL 185-515 mcg/dL - May 21 UIBC (Calc) 155 mcg/dL 155-355 mcg/dL - May 21 Iron 82 mcg/dL Females: 30-160 - May 21, 022 mcg/dL Males: 45-160 mcg/dL RBC 3.53 [...] 12.0 - 16.0 g/dL Hemoglobin x 3 30.3 % Male: 14.0 - 18.0 Low May 192021 g/dL; Female: 12.0-16.0 g/dL HGB 10.1 g/dL Males: 14.0 - 18.0 Low May g/dL Females: 12.0 - 16.0 g/dL Metabolic/Renal Result Type Result Value Relevant Reference Interpretation Date Range Creatinine, Serum 2.18 mg/dL 0.6-1.3 mg/dL High May 07, 2022 BUN/Creat Ratio 20.6 - High May 07 2 BUN 45 mg/dL 6-19 mg/dl High May [...] BUN/Creat Ratio 21.0 - High May 19 022 Sodium 138 mEq/L 136-145 mEq/L - May [...] - May 21 2 BUN/Creat Ratio 21.0 - High May 21 [...] High May 28, 2022 BUN/Creat Ratio 24.7 - High May 28 022 Chloride 103 mEq/L 96-108 mEq/L - May 28, 2022 Bicarbonate 26 mEq/L 22-29 mEq/L - May 28, 2022 Sodium 139 mEq/L 136-145 mEq/L - May 28 2 Potassium 4.4 mEq/L 3.5-5.1 mEq/L - May 28 2 Creatinine, Serum 2.15 mg/dL 0.6-1.3 mg/dL High May BUN/Creat Ratio 17.2 08-07 - June 04 BUN 37 mg/dL 6-19 mg/dl High June 04, 2022 Chloride 103 mEq/L 96-108 mEq/L - June 04, 2022 Bicarbonate 30 mEq/L 22-29 mEq/L - June 04, 2022 Sodium 141 mEq/L 136-145 mEq/L - June 04 2 Potassium 3.7 mEq/L 3.5-5.1 mEq/L - June 04 2 HD Adequacy Result Type Result Value Relevant Reference Interpretation Date Range spKt/V (Daugirdas 1.66 No Reference range Normal 2021 II) provided eKt/V ([place]) 1.39 No Reference range Normal May provided Bone/Mineral Result Type Result Value Relevant Reference Interpretation Date Range Calcium, Total 8.6 mg/dL 8.4-10.2 mg/dL Low [...] Value Relevant Reference Interpretation Date Range Glucose 85 mg/dL 70-100 mg/dL - May [...] Vitals (hr) (mL/min) Access Admin May Weight 72.10 Weight 72.20 03:00:00 360 2.0 K, 180nre Hemodial ysis-CV Catheter-Tunneled, Chest, Right Jugular Heparin Sodium (Porcine) 1,000 Units/mL Catheter Lock Arterial; 1600units,Arterial [place] 12, kg kg 2.5 Ca, Optiflux Heparin S odium (Porcine) 1,000 Units/mL Catheter Lock Venous; 1600units,Venous [place] 2021 1.0 Mg, 100 Dextrose (N2251) Blood Pressure-sitting 120/70 mmHg Blood Pressure-sitting 17 5/97 mmHg Heart Rate 78 beats per minute Heart Rate 93 beats per minute Respiratory Rate 16 breaths per Respiratory Rate 16 breaths per minute minute Temperature 97.9 deg. F Temperature 96.0 deg. F May Weight 73.80 Weight 72.30 03:00:00 360 2.0 K, 180nre Hemodial ysis-CV Catheter-Tunneled, Chest, Right Jugular Heparin Sodium (Porcine) 1,000 Units/mL Catheter Lock Arterial; 1600units,Arterial [place] 15, kg kg 2.5 Ca, Optiflux Heparin S odium (Porcine) 1,000 Units/mL Catheter Lock Venous; 1600units,Venous [place] 2021 1.0 Mg, Iron Sucrose (Venofer); 50mg,Intravenous - push 100 Dextrose (N2251) Blood Pressure-sitting 171/79 mmHg Blood Pressure-sitting 16 3/84 mmHg Heart Rate 72 beats per minute Heart Rate 73 beats per minute Respiratory Rate 16 breaths per Respiratory Rate 16 breaths per minute minute Temperature 97.8 deg. F Temperature 97.0 deg. F May Weight 73.70 Weight 71.50 03:02:00 360 2.0 K, 180nre Hemodial ysis-CV Catheter-Tunneled, Chest, Right Jugular Heparin Sodium (Porcine) 1,000 Units/mL Catheter Lock Arterial; 1600units,Arterial [place] 17, kg kg 2.5 Ca, Optiflux Heparin S odium (Porcine) 1,000 Units/mL Catheter Lock Venous; 1600units,Venous [place] 2021 1.0 Mg, Mircera; 75m cg,Intravenous - push 100 Dextrose (N2251) Blood Pressure-sitting 137/66 mmHg Blood Pressure-sitting 13 5/85 mmHg Heart Rate 75 beats per minute Heart Rate 78 beats per minute Respiratory Rate 16 breaths per Respiratory Rate 16 breaths per minute minute Temperature 97.8 deg. F Temperature 97.0 deg. F
--- OUTSIDE RECORDS SUMMARY | 2022-06-05 13:44 | XMS_ITS | Clinical Summary ---
:1940 Author Organization [facility] Facility Address [address] [place] [address] Care Team Providers Name Role Phone Unavailable Primary Care Provider Unavailable Encounters Date Type Specialty Care Team Description 06/04/2022 Orders Only NephDenilson Isidro MD 05/28/2022 Orders Only NephDenilson Isidro MD 05/28/2022 Treatment Denilson Holly MD 05/23/2022 Orders Only NephDenilson Isidro MD 05/21/2022 Orders Only NephDenilson Isidro MD 05/19/2022 Orders Only NephDenilson Isidro MD 05/14/2022 Orders Only NephDenilson Isidro MD 05/14/2022 Treatment Denilson Holly MD 05/07/2022 Orders Only NephDenilson Isidro MD 05/02/2022 Orders Only NephDenilson Isidro MD 04/23/2022 Orders Only Denilson Leahy MD 04/16/2022 Orders Only Denilson Leahy MD 04/16/2022 Treatment Denilson Holly MD 04/16/2022 Office Communication Nephrology Denilson Holly MD from Last 3 Months Social History [...] Date/Time Associated Diagnosis Comme nts CHEMISTRY Routine 06/04/2022 Results for thi s procedure are i n the results section . HEMATOLOGY Routine 06/04/2022 Results for thi s procedure are i n the results section . CHEMISTRY Routine 05/28/2022 Results for thi s [...] section . from Last 3 Months Results (ABNORMAL) HEMATOLOGY (06/04/2022)Only the most recent of8 resultswithin the time period is included. Analysis [...] 06/05/2022 Unless otherwise specified, test(s) performed at: [facility], [address] [place] [address] [place] [address] ADMINISTRATIVE SERVICES MANAGER: Raheem Malik M.D., Ph.D For any questions, please call customer service at FREQUENCY:OTHER Resulting Agency Comment Specimen source: Blood Denilson Holly MD LAB BLOOD ORDERABLES Performing Organization Address City/State/ZIP Code Phon e Number [facility]PS SPECTRA [facility] (ABNORMAL) Spectrae Chemistry (06/04/2022)Only the most recent of12 results within the time period is included. P athologist Signature BUN 37 (H) 6 [...] 06/05/2022 Unless otherwise specified, test(s) performed at: [facility], [address] [place] [address] [facility] [address] ADMINISTRATIVE SERVICES MANAGER: Raheem Malik M.D., Ph.D For any questions, please call customer service at FREQUENCY:OTHER Resulting Agency Comment Specimen source: Serum Denilson Holly MD LAB BLOOD ORDERABLES Performing Organization Address City/State/ZIP Code Phon e Number [facility] GFR (05/28/2022)Only the most recent of8 resultswithin the time period is included. athologist Signature eGFR CKD-EPI CR 30 mL/min [facility]PS SPECTRA 2020 [facility] Comment: [facility] has implemented the recommended eGFR calculation that [...] 05/29/2022 Unless otherwise specified, test(s) performed at: [facility], [address] [place] [address], [place] [address] ADMINISTRATIVE SERVICES MANAGER: Raheem Malik M.D., Ph.D For any questions, please call customer service at FREQUENCY:OTHER Resulting Agency Comment Specimen source: Serum Denilson Holly MD LAB [id number] NSOLICITED RESULTS Performing Organization Address City/State/[facility] Code Phon e Number APS SPECTRA [...] 05/26/2022 Unless otherwise specified, test(s) performed at: [facility], [address] [place] [address], [place] [address] ADMINISTRATIVE SERVICES MANAGER: Raheem Malik M.D., Ph.D For any questions, please call customer service at FREQUENCY:OTHER Resulting Agency Comment Specimen source: Urine Denilson Holly MD LAB URINE ORDERABLES Performing Organization Address City/[facility] Phon e Number APS SPECTRA [facility] PATIENT [...] 05/26/2022 Unless otherwise specified, test(s) performed at: [facility], [address] [place] [address], [place] [address] ADMINISTRATIVE SERVICES MANAGER: Raheem Malik M.D., Ph.D For any questions, please call customer service at FREQUENCY:OTHER Resulting Agency Comment Specimen source: PD Fluid Denilson Holly MD LAB BLOOD ORDERABLES Performing Organization Address City/[facility] Phon e Number APS SPECTRA [facility] HD KINETICS (05/21/2022)Only the most recent of3 resultswithin the time period is included. athologist [facility] % Urea 76 65 - 80 % APS SPECTRA Reduction [facility] Specimen (Source) Anatomical Collection Method Collection Time Re ceived Time Location / / Volume Laterality 05/21/2022 05/22/2022 5:02 AM CDT Narrative [facility] - 05/27/2022 Unless otherwise specified, test(s) performed at: [facility], [address] [place] [address], [place] [address] ADMINISTRATIVE SERVICES MANAGER: Raheem Malik M.D., Ph.D For any questions, please call customer service at FREQUENCY:MONTHLY Resulting Agency Comment Specimen source: Plasma Denilson Holly MD LAB BLOOD ORDERABLES Performing Organization Address [facility] Phon e Number APS SPECTRA [facility] POST CHEMISTRY (05/21/2022)Only the most recent of3 resultswithin the time period is included. athologist [facility] BUN Post 13 6 - 19 APS SPECTRA Dialysis mg/dL [facility] Specimen (Source) Anatomical Collection Method Collection Time Re ceived Time Location / / Volume Laterality 05/21/2022 05/22/2022 5:02 AM CDT Narrative [facility]PS [facility]PECT[facility] - 05/22/2022 Unless otherwise specified, test(s) performed at: [facility], [address] [place] [address], [place] [address] ADMINISTRATIVE SERVICES MANAGER: Raheem Malik M.D., Ph.D For any questions, please call customer service at FREQUENCY:MONTHLY Resulting Agency Comment Specimen source: Plasma Denilson Holly MD LAB BLOOD ORDERABLES Performing Organization Address City/[facility] Phon e Number APS SPECTRA [facility] IMMUNO CHEMISTRY (05/21/2022)Only the most recent of3 resultswithin the time period is included. athologist [facility] Hep B Surface Negative Negative APS SPECTRA [...] Laterality 05/21/2022 05/22/2022 5:12 AM CDT Narrative [facility] - 05/22/2022 Unless otherwise specified, test(s) performed at: [facility], [address] [place] [address], [place] [address] ADMINISTRATIVE SERVICES MANAGER: Raheem Malik M.D., Ph.D For any questions, please call customer service at FREQUENCY:MONTHLY Resulting Agency Comment Specimen source: Plasma Denilson Holly MD LAB BLOOD ORDERABLES Performing Organization Address City/[facility] Phon e Number [facility] Spectra JALEEL Lab Results (05/21/2022)Only the most recent of3 resultswithin the time period is included. athologist Signature eKt/V 1.39 JALEEL ([place]all) spKt/V 1.66 JALEEL (Daugirdas II) eKt/V Gotch 1.45 JALEEL PCR 47.07 JALEEL eNPCR 0.96 JALEEL nPCR_HD 1.05 JALEEL spKt/V Gotch 1.78 JALEEL eKdrt/V 1.45 JALEEL Specimen (Source) Anatomical Location Collection Method / Collectio n Time Received Time / Laterality Volume 05/21/2022 05/21/2022 Jaleel Ordering Provider LAB BLOOD ORDERABLES Performing Organization Address City/[facility] Phon e Number JALEEL TRACE ELEMENTS (04/23/2022)Only the most recent of2 resultswithin the time period is included. athologist Signature Aluminum <5 0 - 10 APS SPECTRA mcg/L [facility] Comment: This test was developed and its performa nce characteristics determined by [facility]. It has not been cleared or approved by the FDA. The laboratory is regulated under CLIA a s qualified to perform high complexity testing. This test is used fo r clinical purposes. It should not be regarded as investigational or fo r research. Test performed at [facility], [address] [place] [address]. Telephone . Medical Direct or: Henok Correa MD. Specimen (Source) Anatomical Collection Method Collection Time Re ceived Time Location / / Volume Laterality 04/23/2022 04/25/2022 7:04 PM CDT Narrative APS SPECT[facility] - 04/27/2022 Unless otherwise specified, test(s) performed at: [facility], [address] [place] [address] [place] [address] ADMINISTRATIVE SERVICES MANAGER: Raheem Malik M.D., Ph.D For any questions, please call customer service at FREQUENCY:MONTHLY Resulting Agency Comment Specimen source: Serum Denilson Holly MD LAB BLOOD ORDERABLES Performing Organization Address City/State/ZIP Code Phon e Number APS SPECTRA [facility] from Last 3 Months Insurance Payer Benefit Plan / Subscriber ID Effective Dates Phone Addre ss Type [place] [id number] 2016-Present [phone] [address] [address] ([id number]) [place] [address]
--- OUTSIDE RECORDS SUMMARY | 2022-06-05 13:45 | XMS_ITS | Encounter Summary ---
:1940 Author Organization [facility] Address [address] [place] [address] Care Team Providers Name Role Phone [facility], [facility] Primary Care Provider [phone] Encounter Details Date Type Department Care Team [...] documented as of this encounter Care Teams District Sales Representative Relationship Specialty Start Date End Date [facility] [place] PCP - General 05/12/17 [address] [phone] documented as of this encounter
--- OUTSIDE RECORDS SUMMARY | 2022-06-05 13:45 | XMS_ITS | Encounter Summary ---
:1940 Author Organization [place] Address [address] [place] [address] Care Team Providers Name Role Phone [facility], [facility] Primary Care Provider [phone] Encounter Details Date Type Department Care Team [...] documented as of this encounter Care Teams Dragline Oiler Relationship Specialty Start Date End Date [facility], [facility] PCP - General 05/12/[address] [place] [address] documented as of this encounter
--- OUTSIDE RECORDS SUMMARY | 2022-06-05 13:45 | XMS_ITS | Encounter Summary ---
:1940 Author Organization [facility] Address [address] [place] [address] Care Team Providers Name Role Phone Clinic, [facility] Primary Care Provider [phone] Reason for Visit Reason Onset Date Comments Clinic Care Coordination - Follow-up 11/15/2019 Encounter Details Date Type Department Care Team Description 11/15/2019 Telephone [facility] Ramiro Loco Cli [facility] Félix juarez MD Coordination - [address] Follow-up [phone] [place] [phone] [place] [id number] (Wo rk) Social History Tobacco Use Types [...] 9:12 AM CST Order entered. SHASTA Winkler, RN-[facility] ARY CLINICIAN Telephone Encounter - Ro Taylor RN - 11/25/2019 2:34 PM CST Pt called back, left vm to discuss lab request (creat/gfr). I called pt back, pt reports labs [facility] 11[facility]24[facility]19 [facility]. I explained to pt he does not need another lab draw and we will work with these lab results. Pt notes understanding. Routing to Dr. Loco's nurse Leatha for placement of imaging order (to be done in 6 months) [address] Loco's request. SHASTA Sotomayor, JOSE [facility] ARY CLINICIAN Telephone Encounter - Ro Taylor RN - 11/25/2019 1:49 PM CST Pt called back , left vm to discuss labs ordered by Dr. Loco. SHASTA Sotomayor, JOSE [facility] ARY CLINICIAN Telephone Encounter - Ro Taylor RN - 11/15/2019 2:41 PM CST Creatinine check/lab order placed in [facility]. I called pt, left vm explaining he can get this checked at his convenience, upon results we will then order his follow up imaging and OV per Dr. Loco and to call if any questions. SHASTA Sotomayor, RN [facility] [place] ARY CLINICIAN Telephone Encounter - Ro Taylor RN - [...] or CT of chest/abd/pelvis. SHASTA Sotomayor, RN [facility] ARY CLINICIAN documented in this encounter Plan of Treatment [...] documented as of this encounter Care Teams Care Connector Relationship Specialty Start Date End Date [facility] [place] PCP - General 05/12/[address] [place] [address] documented as of this encounter
--- OUTSIDE RECORDS SUMMARY | 2022-06-05 13:45 | XMS_ITS | Encounter Summary ---
:1940 Author Organization [facility] Address [address] [place] [address] Care Team Providers Name Role Phone Unavailable Primary Care Provider Unavailable Encounter Details Date Type Department Care Team Description 04/16/2022 Orders Only [facility] O f Denilson Quinones MD [phone] [place] [address] [place], [place] [phone] (Wo rk) Social History Tobacco Use [...] and its performa nce characteristics determined by [email or web address]. It has not been cleared or approved [...] 04/17/2022 Unless otherwise specified, test(s) performed at: [facility], [address] [place] [address] RAILWAY HEAD TENDER: Henok Correa M.D. For any questions, please call customer service at FREQUENCY:MONTHLY Resulting Agency Comment Specimen source: Serum Denilson Holly MD LAB BLOOD ORDERABLES Performing Organization Address City/[facility] Code Phon e Number APS SPECTRA [...] above test result was obtained using Siemens Guguchuaur XP chemiluminescent method. Results obtaine d with different assay methods or kits cannot be used interchangeably. Specimen (Source) Anatomical Collection Method Collection Time Re ceived Time Location / / Volume Laterality 04/16/2022 04/17/2022 9:14 AM CDT Narrative APS SPECTRA [facility] - 04/17/2022 Unless otherwise specified, test(s) performed at: [email or web address], [address] [place] [address] RAILWAY HEAD TENDER: Henok Correa M.D. For any questions, please call customer service at FREQUENCY:MONTHLY Resulting Agency Comment Specimen source: Serum Denilson Holly MD LAB BLOOD ORDERABLES Performing Organization Address City/[facility] Code Phon e Number APS SPECTRA [facility] (ABNORMAL) Spectrae Chemistry (04/16/2022) P athologist Signature PTH 108 (H) 16 - 80 APS SPECTRA pg/mL [facility] Specimen (Source) Anatomical Collection Method Collection Time Re ceived Time Location / / Volume Laterality 04/16/2022 04/17/2022 9:16 AM CDT Narrative APS SPECTRA [facility] - 04/17/2022 Unless otherwise specified, test(s) performed at: [email or web address], [address] [place] [address] RAILWAY HEAD TENDER: Henok Correa M.D. For any questions, please call customer service at FREQUENCY:MONTHLY Resulting Agency Comment Specimen source: Plasma Denilson Holly MD LAB BLOOD ORDERABLES Performing Organization Address City/[facility] Code Phon e Number APS SPECTRA [facility] HD KINETICS (04/16/2022) P athologist Signature % Urea 69 65 - 80 % APS SPECTRA Reduction [facility] Specimen (Source) Anatomical Collection Method Collection Time Re ceived Time Location / / Volume Laterality 04/16/2022 04/17/2022 9:14 AM CDT Resulting Agency Comment Specimen source: Serum Denilson Holly MD LAB BLOOD ORDERABLES Performing Organization Address City/[facility]/ZIP Code Phon e Number APS SPECTRA [facility] POST CHEMISTRY (04/16/2022) P athologist Signature BUN Post 18 6 - 19 APS SPECTRA Dialysis mg/dL [facility] Specimen (Source) Anatomical Collection Method Collection Time Re ceived Time Location / / Volume Laterality 04/16/2022 04/17/2022 9:08 AM CDT Narrative APS SPECTRA [facility] - 04/17/2022 Unless otherwise specified, test(s) performed at: [email or web address], [address] [place] [address] RAILWAY HEAD TENDER: Henok Correa M.D. For any questions, please [...] 04/17/2022 Unless otherwise specified, test(s) performed at: [email or web address], [address] [place], [place] [id number] RAILWAY HEAD TENDER: Henok Correa M.D. For any questions, please call customer service at FREQUENCY:MONTHLY Resulting Agency Comment Specimen source: Serum Denilson Holly MD LAB BLOOD ORDERABLES Performing Organization Address City/State/ZIP Code Phon e Number APS SPECTRA [facility] GFR (04/16/2022) P athologist Signature eGFR CKD-EPI CR 28 mL/min APS SPECTRA 2020 [facility] Comment: [email or web address] has implemented the recommended eGFR calculation that [...] 04/17/2022 Unless otherwise specified, test(s) performed at: [email or web address], [address] [place] [address] RAILWAY HEAD TENDER: Henok Correa M.D. For any questions, please call customer service at FREQUENCY:MONTHLY Resulting Agency Comment Specimen source: Serum Denilson Holly MD LAB [id number] NSOLICITED RESULTS Performing Organization Address City/State/ZIP Code Phon e Number APS SPECTRA [facility] (ABNORMAL) HEMATOLOGY (04/16/2022) [facility] gist Method Time Signature WBC 7.73 [...] 04/17/2022 Unless otherwise specified, test(s) performed at: [email or web address], [address] [place] [address] RAILWAY HEAD TENDER: Henok Correa M.D. For any questions, please call customer service at FREQUENCY:MONTHLY Resulting Agency Comment Specimen source: Blood Denilson Holly MD LAB BLOOD ORDERABLES Performing Organization Address City/State/ZIP Code Phon e Number APS SPECTRA [facility] documented in this encounter Visit Diagnoses Not on filedocumented in this encounter
--- OUTSIDE RECORDS SUMMARY | 2022-06-05 13:45 | XMS_ITS | Encounter Summary ---
:1940 Author Organization [facility] Address [address] [place] [address] Care Team Providers Name Role Phone [facility], [facility] Primary Care Provider [phone] Encounter Details Date Type Department Care Team [...] as of this encounter Care Teams Marketing Editor Relationship Specialty Start Date End Date [facility] PCP - General 05/12/[address] [place] [address] documented as of this encounter
--- OUTSIDE RECORDS SUMMARY | 2022-06-05 13:45 | XMS_ITS | Encounter Summary ---
:1940 Author Organization [facility] Address [address] [place] [address] Care Team Providers Name Role Phone Unavailable Primary Care Provider Unavailable Encounter Details Date Type Department Care Team Description 04/23/2022 Orders Only [facility] O f Denilson Quinones MD [phone] [place] [address] [place], [place] [phone] (Wo rk) Social History Tobacco Use [...] and its performa nce characteristics determined by [facility]. It has not been cleared or approved by the FDA. The laboratory is regulated under CLIA a s qualified to perform high complexity testing. This test is used fo r clinical purposes. It should not be regarded as investigational or fo r research. Test performed at [facility], [address] [place] [address]. Telephone . Medical Direct or: Henok Correa MD. Specimen (Source) Anatomical Collection Method Collection Time Re ceived Time Location / / Volume Laterality 04/23/2022 04/25/2022 7:04 PM CDT Narrative APS SPECTRA [facility] - 04/27/2022 Unless otherwise specified, test(s) performed at: [facility], [address] [place] [address], [place] [address] BAG PRINTER: Raheem Malik M.D., Ph.D For any questions, [...] for the general public, refer to MMWR [facility] 2004/Vol.54 (No. 16); -, and for [...] 04/26/2022 Unless otherwise specified, test(s) performed at: [facility], [address] [place] [address], [place] [address] BAG PRINTER: Raheem Malik M.D., Ph.D For any questions, [...] 04/25/2022 Unless otherwise specified, test(s) performed at: [facility], [address] [place] [address], [place] [address] BAG PRINTER: Raheem Malik M.D., Ph.D For any questions, [...] 04/25/2022 Unless otherwise specified, test(s) performed at: [facility], [address] [place] [address] [place] [address] BAG PRINTER: Raheem Malik M.D., Ph.D For any questions, [...] 04/25/2022 Unless otherwise specified, test(s) performed at: [facility], [address] [place] [address] [facility] [place] [address] BAG PRINTER: Raheem Malik M.D., Ph.D For any questions, please call customer service at FREQUENCY:MONTHLY Resulting Agency Comment Specimen source: Serum Denilson Holly MD LAB BLOOD ORDERABLES Performing Organization Address City/State/ZIP Code Phon e Number APS SPECTRA [facility] documented in this encounter Visit Diagnoses Not on filedocumented in this encounter
--- OUTSIDE RECORDS SUMMARY | 2022-06-05 13:45 | XMS_ITS | Encounter Summary ---
:1940 Author Organization [facility] Address [address] [place] [address] Care Team Providers Name Role Phone Unavailable Primary Care Provider Unavailable Encounter Details Date Type Department Care Team Description 05/02/2022 Orders Only [facility] O f Denilson Quinones MD [phone] [place] [address] [place], [place] [phone] (Wo rk) Social History Tobacco Use [...] 05/03/2022 Unless otherwise specified, test(s) performed at: [facility], [address] [place] [address] [facility] [facility] [place] [address] EDGE POLISHER: Raheem Malik M.D., Ph.D For any questions, [...] MD LAB BLOOD ORDERABLES Performing Organization Address City/[facility]/ZIP Code Phon e Number APS SPECTRA [facility] GFR (05/02/2022) P athologist Signature eGFR CKD-EPI CR 26 mL/min APS SPECTRA 2020 [facility] Comment: [facility] has implemented the recommended eGFR calculation that [...] 05/03/2022 Unless otherwise specified, test(s) performed at: [facility], [address] [place] [address] [facility] [facility] [place] [address] EDGE POLISHER: Raheem Malik M.D., Ph.D For any questions, please call customer service at FREQUENCY:OTHER Resulting Agency Comment Specimen source: Serum Denilson Holly MD LAB [id number] NSOLICITED RESULTS Performing Organization Address City/State/ZIP Code Phon e Number APS SPECTRA [facility] documented in this encounter Visit Diagnoses Not on filedocumented in this encounter
--- OUTSIDE RECORDS SUMMARY | 2022-06-05 13:45 | XMS_ITS | Encounter Summary ---
:1940 Author Organization [facility] Address [address] [place] [address] Care Team Providers Name Role Phone Unavailable Primary Care Provider Unavailable Encounter Details Date Type Department Care Team Description 05/23/2022 Orders Only [facility] Denilson Quinones MD [address] [place] [address] [place], [place] [phone] (Wo rk) Social History Tobacco Use [...] 05/26/2022 Unless otherwise specified, test(s) performed at: [facility], [address] [place] [address], [place] [address] CASE SUPERVISOR: Raheem Malik M.D., Ph.D For any questions, please call customer service at FREQUENCY:OTHER Resulting Agency Comment Specimen source: Urine Denilson Holly MD LAB URINE ORDERABLES Performing Organization Address [facility] Phon e Number APS SPECTRA [facility] PATIENT INFORMATION (05/23/2022) athologist [facility] Emergency Department Patient BSA 1.75 sq. M. APS SPECTRA [facility] Comment: Normalized values are calculated using t he patient's actual BSA and normalized to the average BSA of 1.73m2. Specimen (Source) Anatomical Collection Method Collection Time Re ceived Time Location / / Volume Laterality 05/23/2022 05/26/2022 12:2 5 PM CDT Narrative APS SPECTRA [facility] - 05/26/2022 Unless otherwise specified, test(s) performed at: [facility], [address] [place] [address], [place] [address] CASE SUPERVISOR: Raheem Malik M.D., Ph.D For any questions, please call customer service at FREQUENCY:OTHER Resulting Agency Comment Specimen source: PD Fluid Denilson Holly MD LAB BLOOD ORDERABLES Performing Organization Address City/[facility] Phon e Number APS SPECTRA [facility] (ABNORMAL) [...] 27 mL/min APS SPECTRA 2020 [facility] Comment: [facility] has implemented the recommended eGFR calculation that [...] 05/26/2022 Unless otherwise specified, test(s) performed at: [facility], [address] [place] [address], [place] [address] CASE SUPERVISOR: Raheem Malik M.D., Ph.D For any questions, please call customer service at FREQUENCY:OTHER Resulting Agency Comment Specimen source: Serum Denilson Holly MD LAB [id number] NSOLICITED RESULTS Performing Organization Address City/State/ZIP Code [...] 05/26/2022 Unless otherwise specified, test(s) performed at: [facility], [address] [place] [address], [place] [address] CASE SUPERVISOR: Raheem Malik M.D., Ph.D For any questions, please call customer service at FREQUENCY:OTHER Resulting Agency Comment Specimen source: PD Fluid Denilson Holly MD LAB BLOOD ORDERABLES Performing Organization Address City/State/ZIP Code Phon e Number APS SPECTRA [facility] documented in this encounter Visit Diagnoses Not on filedocumented in this encounter
--- OUTSIDE RECORDS SUMMARY | 2022-06-05 13:45 | XMS_ITS | Encounter Summary ---
:1940 Author Organization [place] Address [address] [place] [address] Care Team Providers Name Role Phone [facility] Primary Care Provider [phone] Encounter Details Date Type Department Care Team [...] documented as of this encounter Care Teams Hand Filer Balance Wheel Relationship Specialty Start Date End Date [facility] PCP - General 05/12/[address] [place] [address] documented as of this encounter
--- OUTSIDE RECORDS SUMMARY | 2022-06-05 13:45 | XMS_ITS | Encounter Summary ---
:1940 Author Organization [facility] Address [address] [place] [address] Care Team Providers Name Role Phone Unavailable Primary Care Provider Unavailable Encounter Details Date Type Department Care Team Description 05/28/2022 Treatment [facility] f Denilson Quinones MD [address] [place], [place] [phone] (Wo rk) Social History Tobacco Use Types Packs/Day Years Used Date Smoking Tobacco: Never Assessed Sex Assigned at Date Recorded Not on file documented as of this encounter Miscellaneous Notes Dialysis Note - Denilson Holly MD - 05/28/2022 12:50 PM CDT Date: May 28, 2022 Patient Name: Speedy Hendricks : 1940 Chart #: [id number] Sex: M BOTTLING MACHINE OPERATOR: Denilson Holly MD LOCATION: [place] [phone] SCHEDULE: M-W- 2nd Shift Chief Complaint: Acute [...] HD, but still requiring HD. Transferred from [place] rehab to [facility], hoping to get home. [facility] H[facility] here today, dry weight much lower than what they had listed it appears. Med list reviewed from [facility], on midodrine for hypotension with HD. The [...] Hx of above, complex co-morbidities, hospitalized in [place] for AAA rupture while on boat -> TEVAR extension on 01/03/22 -> multiple complications including ARF requiring CRRT/HD, staph pneumonia, chronic resp failure with long mech vent/trach (trach out), R hydropneumothorax, DVT, a-fih, UGI bleed, DIC, critical illness myopathy, sepsis, and dysphagia (had feeding tube, now removed). Went to rehab, transferred back to [place] to [facility] for ongoing rehab closer to home. [facility] and in [place]. His daughter Raquel is ICU/TELESALES TEAM LEADER (ramone currently) and is very involved. Problem [...] and he is considering. WIll send [facility] [place] he [place] Will keep [...]
--- OUTSIDE RECORDS SUMMARY | 2022-06-05 13:45 | XMS_ITS | Encounter Summary ---
:1940 Author Organization [place] Address [facility] [place] [address] Care Team Providers Name Role Phone Clinic, [facility] Primary Care Provider [phone] Reason for Visit Diagnostic Imaging CT Scan (Routine) - Closed Specialty Diagnoses / Procedures Referred By Contact Refer red To Contact Diagnoses Thoracic aortic aneurysm without rupture (H) Abdominal aortic aneurysm (AAA) without rupture (H) Ramiro Loco MD Procedures CT Chest Abdomen Pelvis w/o Contrast CTA Chest Abdomen Pelvis w Contrast [address] [place] [address] Referral ID Status Reason Start Date Expiration Date Visits Requ ested Visits Authorized [id number] Closed 11/29/2019 11/28/2020 1 1 Encounter Details Date Type Department Care Team Description 08/08/2021 Hospital Encounter [facility] Ramiro Loco oracic aortic aneurysm without rupture (H); [facility] Gisela Garcia MD Abdominal aortic aneurysm (AAA) without rupture (H) [address] [place] [address] [address] [place] [address] [phone] Social History Tobacco Use Types Packs/Day Years [...] Sig Dispensed Refills Start Date End Date acetaminophen (TYLENOL) 500 Take 500 mg by mouth 0 MG tablet 3 times daily as needed for mild pain apixaban ANTICOAGULANT Take 1 tablet (2.5 60 tablet 1 11/15 (ELIQUIS) 2.5 MG mg) by mouth 2 times tabletIndications: daily Transient cerebral ischemia, unspecified type atorvastatin (LIPITOR) 40 Take 1 tablet (40 30 tablet 0 MG tabletIndications: mg) by mouth daily Hyperlipidemia LDL goal <70, Acute left-sided low back pain without sciatica lisinopril Take 5 mg by mouth 2 [...] CT CHEST ABDOMEN PELVIS W/O CONTRAST LOCATION: [facility] DATE/TIME: 08/08/2021 4:20 PM INDICATION: history [...] CHEST ABDOMEN PELVIS W/O CONTRA ST LOCATION: [facility] DATE/TIME: 08/08/2021 4:20 PM INDICATION: history [...] City/State/ZIP Code Phon [place] [id number] Care Lab [address] [...] documented as of this encounter Care Teams Game Developer Relationship Specialty Start Date End Date Kehinde Portillofield PCP - General 05/12/[address] [place] [address] documented as of this encounter
--- OUTSIDE RECORDS SUMMARY | 2022-06-05 13:45 | XMS_ITS | Encounter Summary ---
:1940 Author Organization [facility] Address [address] [place] [address] Care Team Providers Name Role Phone Clinic, [facility] Primary Care Provider [phone] Reason for Visit Reason Onset Date Comments Path Results 06/02/2019 Encounter Details Date Type Department Care Team Description 06/02/2019 [facility] Jon White, Path Results [address] [place] [address] [phone] (Wo rk) Social History Tobacco Use Types [...] : MOHS Surgery with Dr. Jon White, Laboratory Associate to remove skin cancers. Thank you for allowing me to be involved in your health care and for choosing [facility]. If you have any questions or concerns please feel free to contact me at . Sincerely, Dr. Fernando White Telephone Encounter - Mallory Montgomery RN - 06/22/2019 9:06 AM CDT Called and LM for patient to call back in regards to scheduling x3 mohs appointments. ERMA LockwoodLaxmi [facility] [phone] Telephone Encounter - Mallory Montgomery RN - 06/17/2019 11:11 AM CDT Called and LM for patient to call back in regards to scheduling x3 mohs appointments. LENA Lockwood [facility] [phone] Telephone Encounter - Mallory Montgomery RN - 06/14/2019 10:15 AM CDT Called and LM for patient to call back in regards to scheduling x3 mohs appointments. LENA Lockwood [facility] [phone] Telephone Encounter - Mallory Montgomery RN - 06/13/2019 1:05 PM CDT Called and LM for patient to call back in regards to scheduling x3 mohs appointments. LENA Lockwood [facility] [phone] Telephone Encounter - Mallory Montgomery RN - 06/06/2019 4:22 PM CDT Called and spoke to patient. Educated patient on biopsy results- BCC x3. Educated patient on BCC andmohs. Patient stated his is currently in the hospital so he cannot schedule any appointments atthis time. Patient asked that I call him early next week. Patient voiced understanding. LENA Lockwood [facility] [phone] Telephone Encounter - Ryan Grady - 06/06/2019 3:44 PM CDT Please call patient on cell at [phone]. Telephone Encounter - Mallory Montgomery RN - 06/06/2019 8:40 AM CDT Called and LM for patient to call back in regards to biopsy results x3. LENA Lockwood [facility] [phone] Telephone Encounter - Mallory Montgomery RN - 06/03/2019 3:44 PM CDT Called and LM for patient to call back in regards to biopsy results x3. LENA Lockwood [facility] [phone] Telephone Encounter - Mallory Montgomery RN - [...] documented as of this encounter Care Teams Director Environmental Relationship Specialty Start Date End Date [facility], [facility] PCP - General 05/12/[address] [place] [address] documented as of this encounter
--- OUTSIDE RECORDS SUMMARY | 2022-06-05 13:45 | XMS_ITS | Encounter Summary ---
:1940 Author Organization [facility] Address [address] [place] [address] Care Team Providers Name Role Phone Unavailable Primary Care Provider Unavailable Encounter Details Date Type Department Care Team Description 05/21/2022 Orders Only [facility] O f Denilson Quinones MD [address] [place] [address] [place], [place] [phone] (Wo rk) Social History Tobacco Use [...] this encounter Results Spectra J[facility] Lab Results (05/21/2022) P athologist Signature eKt/V 1.39 JALEEL (Tattersall) spKt/V 1.66 JALEEL (Daugirdas II) eKt/V Gotch 1.45 JALEEL PCR 47.07 [facility] eNPCR 0.96 [facility] nPCR_HD 1.05 [facility]EL spKt/V Gotch 1.78 J[facility]EL eKdrt/V 1.45 JAELEL Specimen (Source) Anatomical Location Collection Method / Collectio n Time Received Time / Laterality Volume 05/21/2022 05/21/2022 Jaleel Ordering Provider LAB BLOOD ORDERABLES Performing Organization Address City/State/ZIP Code Phon e Number JALEEL HD KINETICS (05/21/2022) athologist Signature % Urea 76 65 - 80 % APS SPECTRA Reduction [facility] Specimen (Source) Anatomical Collection Method Collection Time Re ceived Time Location / / Volume Laterality 05/21/2022 05/22/2022 5:02 AM CDT Narrative APS SPECTRA [facility] - 05/27/2022 Unless otherwise specified, test(s) performed at: [facility], [address] [place] [address], [place] [address] MANAGER APPLICATION DEVELOPMENT: Raheem Malik M.D., Ph.D For any questions, please call customer service at FREQUENCY:MONTHLY Resulting Agency Comment Specimen source: Plasma Denilson Holly MD LAB BLOOD ORDERABLES Performing Organization Address City/State/ZIP Code Phon e Number APS SPECTRA [facility] (ABNORMAL) Spectrae Chemistry (05/21/2022) athologist Signature BUN 54 (H) 6 - [...] 24 mL/min APS SPECTRA 2020 [facility] Comment: [facility] has implemented the recommended eGFR calculation that [...] 05/27/2022 Unless otherwise specified, test(s) performed at: [facility], [facility] [place] [address] MANAGER APPLICATION DEVELOPMENT: Raheem Malik M.D., Ph.D For any questions, please call customer service at FREQUENCY:MONTHLY Resulting Agency Comment Specimen source: Serum Denilson Holly MD LAB [id number] NSOLICITED RESULTS Performing Organization Address City/State/RUST Code Phon e Number APS SPECTRA [facility] [...] the general public, refer to MMWR Decemb 2004/Vol.54 (No. 16); -23, and for healthcare workers, refer to MMWR [...] 05/22/2022 Unless otherwise specified, test(s) performed at: [facility], [address] [place] [address] [place] [address] MANAGER APPLICATION DEVELOPMENT: Raheem Malik M.D., Ph.D For any questions, [...] 05/22/2022 Unless otherwise specified, test(s) performed at: [facility], [address] [place] [address], [place] [address] MANAGER APPLICATION DEVELOPMENT: Raheem Malik M.D., Ph.D For any questions, please call customer service at FREQUENCY:MONTHLY Resulting Agency Comment Specimen source: Plasma Denilson Holly MD LAB BLOOD ORDERABLES Performing Organization Address City/State/ZIP Code Phon e Number APS SPECTRA [facility] (ABNORMAL) HEMATOLOGY (05/21/2022) Patholo gist Method Time Signature WBC 7.80 4.80 [...] 05/22/2022 Unless otherwise specified, test(s) performed at: [facility], [address] [place] [address] [place]ideon [place] [address] MANAGER APPLICATION DEVELOPMENT: Raheem Malik M.D., Ph.D For any questions, please call customer service at FREQUENCY:MONTHLY Resulting Agency Comment Specimen source: Blood Denilsno Holly MD LAB BLOOD ORDERABLES Performing Organization Address City/State/ZIP Code Phon e Number APS SPECTRA [facility] documented in this encounter Visit Diagnoses Not on filedocumented in this encounter
--- OUTSIDE RECORDS SUMMARY | 2022-06-05 13:45 | XMS_ITS | Encounter Summary ---
:1940 Author Organization [place] Address [facility] [place] [address] Care Team Providers Name Role Phone Clinic, [facility] Primary Care Provider [phone] Reason for Visit Reason Onset Date Comments Pain 08/08/2021 Encounter Details Date Type Department Care Team Description 08/08/2021 Telephone [facility] Ramiro Loco MD Pain Clinic Tram [address] [place] [address] [place] [address] [phone] Social History Tobacco Use Types Packs/Day Years [...] Kim Neal - 08/20/2021 8:38 AM CDT [facility] Who is the name of the provider? Dr Gonzalez What is the location you see this provider at? [place] Reason for call: Returned RN's call - relayed message - Pt is scheduled for Dr Gonzalez on 08/29/21 Vocal Music Instructor: Raquel Phone number to call: [phone] Additional Notes: Telephone Encounter - Ro Taylor RN - 08/19/2021 4:37 PM CDT Discussed with Dr. Gonzalez, pt may have office visit with Dr. Gonzalez at next available, no further imaging needed. SHASTA Sotomayor, JOSE [facility] [place] Office: [phone] Telephone Encounter - Cindy Taylor RN - 08/19/2021 4:29 PM CDT I called Raquel and PHIL stating we will discuss with Dr. Gonzalez and get back to her. Cindy VEGAS, JOSE [facility] Office: [phone] Telephone Encounter - Kim Neal - 08/19/2021 3:55 PM CDT [facility] Who is the name of the provider? Prev Dr Lewis, Dr Brown and Dr Loco Pt What is the location you see this provider at? [place] Reason for call: 1. Pt has not [...] see Dr Gonzalez for another opinion/follow up. Vocal Music Instructor: Raquel Phone number to call: [phone] Additional Notes: Pt stated he is still [...] Pt will need oral hydration. Routing to highway patrol commander to coordinate CTA c/a/p today. Please call pts daughter to coordinate [phone]. Then in person OV f/u with Dr. Loco at next nearest available. SHASTA Sotomayor, RN [facility] Office: [phone] Telephone Encounter - Ro Taylor RN - [...] has had consult with Dr. Orosco at [place], no further AAA surgery with Dr. Orosco. Reviewed with Rosario Hendricks MD. SHASTA Sotomayor, RN [facility] Office: [phone] Telephone Encounter - Lillian Uribe MA - [...] She would like a call back at [phone] documented in this encounter Plan of Treatment Not on filedocumented as of this encounter Visit Diagnoses Not on filedocumented in this encounter Additional Health Concerns Infection Onset Date Last Indicated Resolved Time MRSAComment: Positive 02/17/11 and 09/22/12 11/05/2018 019 Negatives 05/03/14 (HE), 12/01/14 (HE) documented as of this encounter Care Teams Extension Service Advisor Relationship Specialty Start Date End Date Clinic, [facility] PCP - General 05/12/[address] [place] [address] documented as of this encounter
--- OUTSIDE RECORDS SUMMARY | 2022-06-05 13:45 | XMS_ITS | Encounter Summary ---
:1940 Author Organization [facility] Address [address] [place] [address] Care Team Providers Name Role Phone Unavailable Primary Care Provider Unavailable Encounter Details Date Type Department Care Team Description 04/16/2022 Office Communication [facility] [place] MD [address] [place] [address] Social History Tobacco Use [...]
--- OUTSIDE RECORDS SUMMARY | 2022-06-05 13:45 | XMS_ITS | Encounter Summary ---
:1940 Author Organization [place] Address [facility] [place] [address] Care Team Providers Name Role Phone Clinic, [facility] Primary Care Provider [phone] Reason for Visit Reason Comments RECHECK 6 month follow up visit. 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) (Primary Dx); Surgery Clinic Ramiro Loco MD [address] [place] [address] CKD (chronic kidney disease) stage 3, GF R 30-59 ml/min (H) [place] [address] [address] [facility] [address] [place] [address] Social History Tobacco Use Types [...] Comments Blood Pressure 128/76 11/09/2019 1:[address] ORDERLY Pulse 59 11/09/2019 1:[address] ORDERLY Temperature - - Respiratory Rate 16 11/09/2019 1:[address] ORDERLY Oxygen Saturation 98% 11/09/2019 1:[address] ORDERLY Inhaled Oxygen Concentration - - Weight 82.6 kg (182 lb) 11/09/2019 1:[address] ORDERLY Height 167.6 cm (5' 6) 11/09/2019 1:[address] ORDERLY Body Mass Index 29.38 11/09/2019 1:[address] ORDERLY documented in this encounter Progress Notes Ramiro [...] Hendricks spent the last several months in [place]. Dr. Brown has left our practice. Mr. Hendricks presents to my vascular surgical office today to review a noncontrasted CT scan of the chest, abdomen, and pelvis and to once again discuss possible EVAR. He was accompanied by his daughter. He did have a fall while vacationing in [place] with multiple resultant rib fractures. Apart from [...] repair. I would absolutely refer him to [facility] to discuss those surgical options. Presently repair [...] in complete agreement with our plan. Total [id number] time was 40 minutes, greater than 50% spent providing counseling and education. David Loco MD T ORDERLY documented in this encounter Plan of Treatment [...] documented as of this encounter Care Teams Credit Investigator Relationship Specialty Start Date End Date [facility] PCP - General 05/12/[address] [place] [address] documented as of this encounter
--- OUTSIDE RECORDS SUMMARY | 2022-06-05 13:45 | XMS_ITS | Encounter Summary ---
:1940 Author Organization [place] Address [facility] [place] [address] Care Team Providers Name Role Phone Clinic, [facility] Primary Care Provider [phone] Reason for Referral Diagnostic Imaging CT Scan (Routine) - Closed Specialty Diagnoses / Procedures Referred By Contact Refer red To Contact Radiology. 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 (H) Butch Brown MD Ct Scan [facility] Procedures CT Chest Abdomen Pelvis w/o Contrast [address] [place] [address] [place] [address] [address] Phone: Fax: Referral ID Status Reason Start Date Expiration Date Visits Requ ested Visits Authorized [id number] Closed 05/17/2019 05/16/2020 1 1 ICE DIRECTOR Reason for Visit Diagnostic Imaging CT Scan (Routine) - Closed Specialty Diagnoses / Procedures Referred By Contact Refer red To Contact Radiology. 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 (H) Butch Brown MD Ct Scan [facility] Procedures CT Chest Abdomen Pelvis w/o Contrast [address] [place] [address] [place] [address] [address] Phone: Fax: Referral ID Status Reason Start Date Expiration Date Visits Requ ested Visits Authorized [id number] Closed 05/17/2019 05/16/2020 1 1 Encounter Details Date Type Department Care Team Description 11/09/2019 Hospital Encounter [facility] Butch Brown aortic [facility] MD Pierre aneurysm (AAA) [address] with out rupture (H) [address] [place] [address] Social History Tobacco Use Types Packs/Day [...] aortic Results for this PELVIS W/O CONTRAST SERVICE DIRECTOR aneurysm (AAA) proced ure are in without rupture (H) the resu lts section. documented in this encounter Results CT Chest Abdomen Pelvis w/o Contrast (11/09/2019 11:25 AM SERVICE DIRECTOR) Anatomical Region Laterality Modality Abdomen/Pelvis, SUBRAD CT BODY, UMP CT CHEST, UMP CT Computed Tomography ABDOMEN PELVIS, Chest, RAD CT Specimen (Source) Anatomical Location Collection Method / Collectio n Time Received Time / Laterality Volume Impressions 11/09/2019 3:17 PM SERVICE DIRECTOR IMPRESSION: 1. 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 2. The aneurysm sac in the distal thorac ic aorta and an infrarenal abdominal aortic aneurysm have increased slightly in size since the previous exam. 3. Moderate age-indeterminate anterior c ompression of the T7 vertebral body is new since the previous exam. JON NICHOLS MD Narrative 11/09/2019 3:[address] CHEST, ABDOMEN AND PELVIS WITHOUT CONTRAST [...] as of this encounter Care Teams Game Technician Relationship Specialty Start Date End Date [facility], [facility] PCP - General 05/12/[address] [place], [place] [id number] documented as of this encounter
--- OUTSIDE RECORDS SUMMARY | 2022-06-05 13:45 | XMS_ITS | Encounter Summary ---
:1940 Author Organization [facility] Address [address] [place] [address] Care Team Providers Name Role Phone Unavailable Primary Care Provider Unavailable Encounter Details Date Type Department Care Team Description 04/16/2022 Treatment [facility] f Denilson Quinones MD [address] [place], [place] [phone] (Wo rk) Social History Tobacco Use Types Packs/Day Years Used Date Smoking Tobacco: Never Assessed Sex Assigned at Date Recorded Not on file documented as of this encounter Miscellaneous Notes Dialysis Note - Denilson Holly MD - 04/16/2022 3:44 PM CDT Date: Apr 16, 2022 Patient Name: Speedy Hendricks : 1940 Chart #: [id number] Sex: M Patient Type: DEJA Modality: Hemodialysis Security Professionals: Denilson Holly MD Location: [place] [phone] Schedule: M-W-F 2nd Shift Initial Access Date [...] Name: Speedy Hendricks : 1940 Chart #: [id number] Sex: M BALL ASSEMBLER: Denilson Holly MD LOCATION: [phone] SCHEDULE: -W- 2nd Shift Chief Complaint: Acute kidney injury. The patient complains of the following - 04/16/22: Meeting patient today. Met with patient and his daughter Raquel. Patient saw me in clinic in past, baseline Cr 1.5 range. 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 Recently on Mon/Fri HD, but still requiring HD. Transferred from [place] rehab to [facility] here, hoping to get home. First Hd here today, dry weight much lower than what they had listed it appears. Med list reviewed from [facility], on midodrine for hypotension with HD. The [...] Hx of above, complex co-morbidities, hospitalized in [place] for AAA rupture while on boat -> TEVAR extension on 01/03/22 -> multiple complications including ARF requiring CRRT/HD, staph pneumonia, chronic resp failure with long mech vent/trach (trach out), R hydropneumothorax, DVT, a-fih, UGI bleed, DIC, critical illness myopathy, sepsis, and dysphagia (had feeding tube, now removed). Went to rehab, transferred back to [place] to [facility] for ongoing rehab closer to [place]. [facility] [place]. His daughter Raquel is ICU/FLOATING DERRICK OPERATOR (rmaone currently) and is very involved. Problem List [...] - Cath - Tunneled Will send to [facility] for AVF/AVG placement as on HD for [...]
--- OUTSIDE RECORDS SUMMARY | 2022-06-05 13:45 | XMS_ITS | Clinical Summary ---
:1940 Author Organization [facility] Address [address] [place] [address] Care Team Providers Name Role Phone Clinic, [facility] Primary Care Provider [phone] Gallito Gonzalez MD Unavailable Allergies Active Allergy [...] Comments Blood Pressure 161/78 09/23/2021 10:34 AM CLAIM REP Pulse 57 09/23/2021 10:34 AM CLAIM REP Temperature 36.6 ??C (97.9 ??F) 11/09/2018 7:31 AM CLAIM REP Respiratory Rate 16 09/23/2021 10:34 AM CLAIM REP Oxygen Saturation 99% 09/23/2021 10:34 AM CLAIM REP Inhaled Oxygen Concentration - - Weight 79.4 kg (175 lb) 09/23/2021 10:34 AM CLAIM REP Height 167.6 cm (5' 6) 09/23/2021 10:34 AM CLAIM REP Body Mass Index 28.25 09/23/2021 10:34 AM CLAIM REP Plan of Treatment Health Maintenance Due Date [...] this topic Medical Devices Implanted Type Area Rug Dyer Helper Device Shelf Model / Identifier Expiration Serial / Date Lot Graft Master Matrix 10cc [id number] Bone/Tissue N/A: Back [employer] 04/17/2017 [id number] / Implanted: Qty: 1 on 11/29/2014 /Biologic / [id number] Medtronic Valiant Navion Thoracic Graft System (37mm X 37mm X 223mm X 20fr.) Graft N/A: Aorta [employer] 07/25/2020 [id number] / Implanted: Qty: 1 on 11/05/2018 by Juan Delcid MD at [facility] [id number] / Alessio Precut Contoured 70x5.5mm Metallic N/A: Back [employer] [id number] / Implanted: Qty: 2 on 11/29/2014 Hardware/An / chor NA Cervical Rods/Screws Angio-Seal Vip Vascular Closure Device Right: 08/18/2019 [id number] / Implanted: Qty: 1 on 11/05/2018 by Juan Delcid MD at [facility] Arterial / [id number] Description: Perclose Device sutured int o the right common femoral artery. Explanted Type Area Rug Dyer Helper Device Shelf Model / Identifier Expiration Date Ser ial / Lot Pedicle Screws Metallic And Rods Hardware/Anch or Additional Health Concerns Infection Onset Date Last Indicated MRSAComment: Positive 02/17/11 and 09/22/12 11/05/2018 11/05/2018 Negatives 05/03/14 (HE), 12/01/14 (HE) Insurance Payer Benefit Plan / Subscriber ID Effective Phone Address T ype Group Dates MEDICARE MEDICARE FOR HB [id number] 2012-Prese [phone] ATTN CLAIMS Medicare SUPPLEMENT nt 40 [address] [facility] [place] [address] BCBS BCBS K[place]NA [id number] 2012-Prese [phone] [address] [address] PPO BLUE nt 00 [place] [address] Advance Directives For more information, please contact: [phone] Latest Code Status on File Code Status Date Activated Date Inactivated Comments Full Code 11/15/2017 2:04 AM 11/15/2017 2:27 PM Full Code 05/12/2017 1:29 PM 11/15/2017 2:04 AM Full Code 05/05/2017 5:50 PM 05/12/2017 1:29 PM Care Teams Manager Cardiology Relationship Specialty Start Date End Date [facility] PCP - General 05/12/[address] [place] [address] Gallito Gonzalez MD Assigned Heart and Vascular 09/29/21 [address] Provider [place] [address]
--- OUTSIDE RECORDS SUMMARY | 2022-06-05 13:45 | XMS_ITS | Encounter Summary ---
:1940 Author Organization [facility] Address [address] [place] [address] Care Team Providers Name Role Phone Unavailable Primary Care Provider Unavailable Encounter Details Date Type Department Care Team Description 05/19/2022 Orders Only [facility] O f Denilson Quinones MD [address] [place] [address] [place], [place] [phone] (Wo rk) Social History Tobacco Use [...] 24 mL/min APS SPECTRA 2020 [facility] Comment: [employer] has implemented the recommended eGFR calculation that [...] 05/20/2022 Unless otherwise specified, test(s) performed at: [employer], [address] [place] [address] COMPUTER DISCOVERY TEACHER: Raheem Malik M.D., Ph.D For any questions, please call customer service at FREQUENCY:OTHER Resulting Agency Comment Specimen source: Serum Denilson Holly MD LAB [id number] NSOLICITED RESULTS Performing Organization Address City/[facility] Phon e Number APS SPECTRA [...] 05/20/2022 Unless otherwise specified, test(s) performed at: [facility], [address] [place] [address] COMPUTER DISCOVERY TEACHER: Raheem Malik M.D., Ph.D For any questions, please call customer service at FREQUENCY:OTHER Resulting Agency Comment Specimen source: PD Fluid Denilson Holly MD LAB BLOOD ORDERABLES Performing Organization Address City/[facility] Phon e Number APS SPECTRA [facility] documented in this encounter Visit Diagnoses Not on filedocumented in this encounter
--- OUTSIDE RECORDS SUMMARY | 2022-06-05 13:45 | XMS_ITS | Encounter Summary ---
:1940 Author Organization [facility] Address [address] [place] [address] Care Team Providers Name Role Phone Unavailable Primary Care Provider Unavailable Encounter Details Date Type Department Care Team Description 05/14/2022 Treatment [facility] f Denilson Quinones MD [address] [place], [place] [phone] (Wo rk) Social History Tobacco Use Types Packs/Day Years Used Date Smoking Tobacco: Never Assessed Sex Assigned at Date Recorded Not on file documented as of this encounter Miscellaneous Notes Dialysis Note - Denilson Holly MD - 05/14/2022 1:29 PM CDT Date: May 14, 2022 Patient Name: Speedy Hendricks : 1940 Chart #: [id number] Sex: M THEORETICAL PHYSICS TEACHER: Denilson Holly MD LOCATION: [place] [phone] SCHEDULE: M-W-F 2nd Shift Chief Complaint: Acute [...] requiring HD. Transferred from [place] rehab to [facility] here, hoping to get home. First Hd here today, dry weight much lower than what they had listed it appears. Med list reviewed from [facility], on midodrine for hypotension with HD. [...] removed). Went to rehab, transferred back to [place] to [facility] for ongoing rehab closer to home. He has [facility] and in [place]. His daughter Raquel is ICU/RADIATOR TESTER (ramone currently) and is very involved. Problem [...] procaine Unknown Med list reviewed from [facility] Adequacy & Blood Pressure: spKt/V Gotch [...]
--- OUTSIDE RECORDS SUMMARY | 2022-06-05 13:45 | XMS_ITS | Encounter Summary ---
:1940 Author Organization [facility] Address [address] [place] [address] Care Team Providers Name Role Phone Clinic, [facility] Primary Care Provider [phone] Encounter Details Date Type Department Care Team Description 11/15/2019 Orders Only [facility] Ramiro Loco Thoracic aortic Vascular Clinic Félix Garcia MD aneurysm without [address] rupt ure (H) (Primary [address] Dx) [place] [phone] [place] [id number] Social History Tobacco Use Types Packs/Day Years [...] encounter Results (ABNORMAL) Creatinine (12/08/2019 10:59 AM SYNCHRO ASSEMBLER) Analysis Performed At Patho logist Time Signature Creatinine 1.36 (H) 0.66 - 12/09/2019 [place] 1.25 mg/dL 9:03 AM [facility] GFR Estimate 50 (L) >60 12/09/2019 [place] mL/min/{1. 9:03 AM [facility] 73_m2} [facility] Comment: Non GFR Calc Starting 10/05/2018, serum creatinine ba sed estimated GFR (eGFR) will be calculated using the Chronic Kidney Dise ase Epidemiology Collaboration (CKD-EPI) equation. GFR Estimate If 58 (L) >60 mL/min/{1.73_m2} 12/09/2019 9:03 AM [facility] Black [facility] Comment: GFR Calc Starting 10/05/2018, serum creatinine ba sed estimated GFR (eGFR) will be calculated using the Chronic Kidney Dise [facility] Epidemiology Collaboration (CKD-EPI) equation. Specimen Anatomical Collection Method Collection Time Receive d Time (Source) Location / / Volume Laterality Blood specimen 12/08/2019 10:59 0 (specimen) AM SYNCHRO ASSEMBLER 11:04 AM SYNCHRO ASSEMBLER Ramiro Loco MD LAB - BLOOD ORDERABLES Performing Organization Address City/State/ZIP Code Phon e Number [facility] [address] [place] [address] documented in this encounter Visit Diagnoses Diagnosis Thoracic aortic aneurysm without rupture (H) - Primary Thoracic aneurysm without mention of rup ture documented in this encounter Additional Health Concerns Infection Onset Date Last Indicated Resolved Time MRSAComment: Positive 02/17/11 and 09/22/12 11/05/2018 019 Negatives 05/03/14 (HE), 12/01/14 (HE) documented as of this encounter Care Teams Windlasser Relationship Specialty Start Date End Date [facility] Portillo PCP - General 05/12/[address] [place] [address] documented as of this encounter
--- OUTSIDE RECORDS SUMMARY | 2022-06-05 13:45 | XMS_ITS | Encounter Summary ---
:1940 Author Organization [place] Address [address] [place] [address] Care Team Providers Name Role Phone Clinic, [facility] Primary Care Provider [phone] Encounter Details Date Type Department Care Team [...] with No / Unsure 09/23/2021 10:[address]ING ENGINEER someone who was confirmed or suspected to have Coronavirus / COVID-19? documented as of this encounter Plan of Treatment Not on filedocumented as of this encounter Visit Diagnoses Not on filedocumented in this encounter Additional Health Concerns Infection Onset Date Last Indicated Resolved Time MRSAComment: Positive 02/17/11 and 09/22/12 11/05/2018 019 Negatives 05/03/14 (HE), 12/01/14 (HE) documented as of this encounter Care Teams [employer] Humanities Teacher Relationship Specialty Start Date End Date Clinic, Kehinde Issue PCP - General 05/12/17 [address] [place] [phone] documented as of this encounter
--- OUTSIDE RECORDS SUMMARY | 2022-06-05 13:45 | XMS_ITS | Encounter Summary ---
:1940 Author Organization [facility] Address [address] [place] [address] Care Team Providers Name Role Phone Clinic, [facility] Primary Care Provider [phone] Reason for Visit Reason Onset Date Comments Forms 06/30/2019 Encounter Details Date Type Department Care Team Description 06/30/2019 Telephone [facility] Jon White, Forms [address] [phone] [place] [address] [phone] (Wo rk) Social History Tobacco Use Types [...] back and records faxed to them at [phone].Desire De Oliveira RN Telephone Encounter - Mallory Montgomery RN - 06/30/2019 1:04 PM CDT Flor over at [facility] called requesting patient records from his [...] frustrated by the situation. Faxed form to [facility]. Flor voiced understanding. JOSE Lockwood-BSN-N [facility] [phone] documented in this encounter Plan of Treatment Not on filedocumented as of this encounter Visit Diagnoses Not on filedocumented in this encounter Additional Health Concerns Infection Onset Date Last Indicated Resolved Time MRSAComment: Positive 02/17/11 and 09/22/12 11/05/2018 019 Negatives 05/03/14 (HE), 12/01/14 (HE) documented as of this encounter Care Teams Seeing Eye Dog Trainer Relationship Specialty Start Date End Date [facility], [facility] PCP - General 05/12/[address] [place] [address] documented as of this encounter
--- OUTSIDE RECORDS SUMMARY | 2022-06-05 13:45 | XMS_ITS | Encounter Summary ---
:1940 Author Organization [facility] Address [address] [place] [address] Care Team Providers Name Role Phone Unavailable Primary Care Provider Unavailable Encounter Details Date Type Department Care Team Description 05/07/2022 Orders Only [facility] O f Denilson Quinones MD [address] [place] [address] [place], [place] [phone] (Wo rk) Social History Tobacco Use [...] MD LAB BLOOD ORDERABLES Performing Organization Address City/[facility] Code Phon e Number APS SPECTRA [facility] GFR (05/07/2022) P athologist Signature eGFR CKD-EPI CR 30 mL/min APS SPECTRA 2020 [facility] Comment: [facility] has implemented the recommended eGFR calculation that [...] 05/08/2022 Unless otherwise specified, test(s) performed at: [facility], [address] [place] [address], [place] [address] DUCTFIXING PLUMBER: Raheem Malik M.D., Ph.D For any questions, please call customer service at FREQUENCY:OTHER Resulting Agency Comment Specimen source: Serum Denilson Holly MD LAB [id number] NSOLICITED RESULTS Performing Organization Address City/[facility] Code Phon e Number APS SPECTRA [...] 05/08/2022 Unless otherwise specified, test(s) performed at: [facility], [address] [place] [address], [place] [address] DUCTFIXING PLUMBER: Raheem Malik M.D., Ph.D For any questions, please call customer service at FREQUENCY:OTHER Resulting Agency Comment Specimen source: Blood Denilson Holly MD LAB BLOOD ORDERABLES Performing Organization Address City/State/ZIP Code Phon e Number APS SPECTRA [facility] documented in this encounter Visit Diagnoses Not on filedocumented in this encounter
--- OUTSIDE RECORDS SUMMARY | 2022-06-05 13:45 | XMS_ITS | Encounter Summary ---
:1940 Author Organization [facility] Address [address] [place] [address] Care Team Providers Name Role Phone Clinic, [facility] Primary Care Provider [phone] Encounter Details Date Type Department Care Team Description 12/08/2019 Orders Only [facility] Tho racic aortic aneurysm Issue Laborator y without rupture (H) [address] [place] [address] Social History Tobacco Use [...] AM Thoracic aortic Resul ts for this UROGYNECOLOGY PHYSICIAN aneurysm without procedure a re in the rupture (H) results section . documented in this encounter Results (ABNORMAL) Creatinine (12/08/2019 10:59 AM UROGYNECOLOGY PHYSICIAN) Analysis Performed At Patho logist Time Signature Creatinine 1.36 (H) 0.66 - 12/09/2019 [place] 1.25 mg/dL 9:03 AM [facility] GFR Estimate 50 (L) >60 12/09/2019 [place] mL/min/{1. 9:03 AM [facility] 73_m2} [facility] Comment: Non GFR Calc Starting 10/05/2018, serum creatinine ba sed estimated GFR (eGFR) will be calculated using the Chronic Kidney Dise [facility] Epidemiology Collaboration (CKD-EPI) equation. GFR Estimate If 58 (L) >60 mL/min/{1.73_m2} 12/09/2019 9:03 AM [facility] Black [facility] Comment: GFR Calc Starting 10/05/2018, serum creatinine ba sed estimated GFR (eGFR) will be calculated using the Chronic Kidney Dise [facility] Epidemiology Collaboration (CKD-EPI) equation. Specimen Anatomical Collection Method Collection Time Receive d Time (Source) Location / / Volume Laterality Blood specimen 12/08/2019 10:59 0 (specimen) AM UROGYNECOLOGY PHYSICIAN 11:04 AM UROGYNECOLOGY PHYSICIAN Ramiro Loco MD LAB - BLOOD ORDERABLES Performing Organization Address City/State/ZIP Code Phon e Number [facility] [address] [place] [address] documented in this encounter Visit Diagnoses Diagnosis Thoracic aortic aneurysm without rupture (H) Thoracic aneurysm without mention of rup ture documented in this encounter Additional Health Concerns Infection Onset Date Last Indicated Resolved Time MRSAComment: Positive 02/17/11 and 09/22/12 11/05/2018 019 Negatives 05/03/14 (HE), 12/01/14 (HE) documented as of this encounter Care Teams Machine Stoppage Frequency Checker Relationship Specialty Start Date End Date Kehinde Portillo PCP - General 05/12/17 [address] [place] [address] documented as of this encounter
--- OUTSIDE RECORDS SUMMARY | 2022-06-05 13:45 | XMS_ITS | Encounter Summary ---
:1940 Author Organization [facility] Address [address] [place] [address] Care Team Providers Name Role Phone Unavailable Primary Care Provider Unavailable Encounter Details Date Type Department Care Team Description 05/14/2022 Orders Only [facility] O f Denilson Quinones MD [address] [place] [address] [place], [place] [phone] (Wo rk) Social History Tobacco Use [...] 05/15/2022 Unless otherwise specified, test(s) performed at: [facility], [address] [place] [address] gideon [place] [address] DIRECTOR OF FLIGHT OPERATIONS: Raheem Malik M.D., Ph.D For any questions, [...] Organization Address City/[facility]/ZIP Code Phon e Number APS SPECTRA [facility] GFR (05/14/2022) P athologist Signature eGFR CKD-EPI CR 24 mL/min APS SPECTRA 2020 [facility] Comment: [facility] has implemented the recommended eGFR calculation that [...] 05/15/2022 Unless otherwise specified, test(s) performed at: [facility], [address] [place] [address] [place] [address] DIRECTOR OF FLIGHT OPERATIONS: Raheem Malik M.D., Ph.D For any questions, please call customer service at FREQUENCY:OTHER Resulting Agency Comment Specimen source: Serum Denilson Holly MD LAB [id number] NSOLICITED RESULTS Performing Organization Address City/State/ZIP Code Phon e Number APS SPECTRA [facility] documented in this encounter Visit Diagnoses Not on filedocumented in this encounter
--- OUTSIDE RECORDS SUMMARY | 2022-06-05 13:46 | XMS_ITS | Encounter Summary ---
:1940 Author Organization [place] Address [address] [place] [address] Care Team Providers Name Role Phone Clinic, [facility] Primary Care Provider [phone] Reason for Visit Reason Comments RECHECK 1st PO; THORACIC ENDOVASCULA R ANEURYSM REPAIR WITH [employer] GRAFT Encounter Details Date Type Department Care Team Description 11/26/2018 Office Visit [facility] Butch Brown Thoracic a ortic Vascular Clinic Félix Jay MD aneurysm without [address] pture (H) (Primary [address] Dx) [place] [address] [place] [address] Social History Tobacco Use Types Packs/Day Years [...] Comments Blood Pressure 146/70 11/26/2018 10:47 AM CERAMIC DESIGNER Pulse 66 11/26/2018 10:47 AM CERAMIC DESIGNER Temperature - - Respiratory Rate - - Oxygen Saturation - - Inhaled Oxygen Concentration - - Weight 87.5 kg (193 lb) 11/26/2018 10:47 AM CERAMIC DESIGNER Height 167.6 cm (5' 6) 11/26/2018 10:47 AM CERAMIC DESIGNER Body Mass Index 31.15 11/26/2018 10:47 AM CERAMIC DESIGNER documented in this encounter Patient Instructions Patient InstructionsVon Landeros CMA - 11/26/2018 11:00 AM CERAMIC DESIGNER Patient to follow up with Primary Care provider regarding elevated blood pressure. MIC DESIGNER documented in this encounter Progress Notes Von [...] kg). Pain Score: Data Unavailable Von Landeros MIC DESIGNER Butch Brown MD - 11/26/2018 11:00 AM [...] 5.0-5.5 cm. Butch Brown MD Vascular Surgery MIC DESIGNER documented in this encounter Plan of [...] documented as of this encounter Care Teams Em Physician Relationship Specialty Start Date End Date [facility], [facility] PCP - General 05/12/[address] [place], [place] [phone] documented as of this encounter
--- OUTSIDE RECORDS SUMMARY | 2022-06-05 13:46 | XMS_ITS | Encounter Summary ---
:1940 Author Organization [place] Address [address] [place] [address] Care Team Providers Name Role Phone Clinic, [facility] Primary Care Provider [phone] Reason for Visit Reason Onset Date Comments Clinic Care Coordination - Initial 05/17/2019 CT sc an Encounter Details Date Type Department Care Team Description 05/17/2019 Telephone [facility] Butch Brown Clinic Car e Coordination Vascular Clinic Félix Jay MD - Initial (CT scan) [address] [place] [address] [place] [id number] Social History Tobacco Use Types Packs/Day Years [...] documented as of this encounter Care Teams Assistant Producer Relationship Specialty Start Date End Date [facility] PCP - General 05/12/[address] [place] [address] [phone] documented as of this encounter
--- OUTSIDE RECORDS SUMMARY | 2022-06-05 13:46 | XMS_ITS | Encounter Summary ---
:1940 Author Organization [place] Address [address] [place] [address]. [place] [address] Care Team Providers Name Role Phone [facility], [facility] Primary Care Provider [phone] Encounter Details Date Type Department Care Team Description 11/12/2018 Telephone [facility]ascular Butch Brown MD Clinic [place] [address] [place] [address] [place] [address] [place] [id number] (Wo rk) Social History Tobacco Use Types [...] that f/u with Dr. Brown. Aruna Simmons, Real Estate Inspector ATOR/ASSISTANT FOREMAN documented in this encounter Plan of Treatment Not on filedocumented as of this encounter Visit Diagnoses Not on filedocumented in this encounter Additional Health Concerns Infection Onset Date Last Indicated Resolved Time MRSAComment: Positive 02/17/11 and 09/22/12 11/05/2018 019 Negatives 05/03/14 (HE), 12/01/14 (HE) documented as of this encounter Care Teams Wet Machine Cutter Relationship Specialty Start Date End Date [facility], [facility] PCP - General 05/12/[address] [place] [address] documented as of this encounter
--- OUTSIDE RECORDS SUMMARY | 2022-06-05 13:46 | XMS_ITS | Encounter Summary ---
:1940 Author Organization [place] Address [address] [place] [address] Care Team Providers Name Role Phone Clinic, [facility] Primary Care Provider [phone] Reason for Visit Reason Comments Skin Check FSE Encounter Details Date Type Department Care Team Description 06/02/[address] [facility] Jon White of skin cancer (Primary Dx); Clinic Page MD Aubrey Lentigo; [place] [address] Seborrheic keratosis; [address] [address] Angioma of skin; [place], [place] [phone] Dermal nevus ; [phone] (Work) Basal cell carcinoma (BCC) of anterior c hest; [phone] Basal wilton l carcinoma (BCC) of sideburn [...] CDT Wound Care Instructions FOR SUPERFICIAL WOUNDS [facility] [phone] [facility] [phone] AFTER 24 HOURS YOU SHOULD REMOVE THE [...] file Gets together: Not on file Attends voodoo service: Not on file Active member of club or organization: Not on file Attends meetings of clubs or organizations: Not on file Relationship status: Not on file ??? Intimate partner violence: Fear of current or ex partner: Not on file Emotionally abused: Not on file Physically abused: Not on file Forced sexual activity: Not on file Other Topics Concern ??? Parent/sibling w/ CABG, MS or angioplasty before 65F 55M? Not Asked [...] 87.5 kg (193 lb). . JOSE Lockwood-BSN-N [facility] [phone] documented in this encounter Plan of Treatment [...] documented as of this encounter Care Teams Conservation Policy Analyst Relationship Specialty Start Date End Date Clinic, [facility] PCP - General 05/12/[address] [place] [address] documented as of this encounter
--- OUTSIDE RECORDS SUMMARY | 2022-06-05 13:46 | XMS_ITS | Encounter Summary ---
:1940 Author Organization [place] Address [address] [facility] [place] [address] Care Team Providers Name Role Phone Clinic, [facility] Primary Care Provider [phone] Reason for Visit Reason Comments RECHECK History of thoracic aortic a neurysm without rupture; 6 month follow up to 11-26-[address] Brown Encounter Details Date Type Department Care Team Description 05/17/2019 Office Visit [facility] Butch Brown Abdominal aortic aneurysm (AAA) without rupture (H) (Primary Dx); Vascular Clinic Félix Jay MD Thoracic aortic aneurysm without rupture (H) [address] [place] [address] [place] [id number] Social History Tobacco Use Types Packs/Day Years [...] aneurysms. The patient plans to go to [place] this fall and is back sometime in [...] previously covered. I spent 15 minutes of slpx-up-ebbo time, > 50% spent counseling and coordinating [...] documented as of this encounter Care Teams Production Line Assembler Relationship Specialty Start Date End Date [facility] PCP - General 05/12/17 [address] [place] [address] documented as of this encounter
--- OUTSIDE RECORDS SUMMARY | 2022-06-05 13:46 | XMS_ITS | Encounter Summary ---
:1940 Author Organization [place] Address [facility] [place] [address] Care Team Providers Name Role Phone Clinic, [facility] Primary Care Provider [phone] Reason for Referral Diagnostic Imaging CT Scan - Closed Specialty Diagnoses / Procedures Referred By Contact Refer red To Contact Radiology. Diagnoses Thoracic aortic aneurysm (H) Juan Lewis MD Ct Scan Procedures CTA Chest Abdomen Pelvis w Contrast [address] [place] [address] [place] [address] Referral ID Status Reason Start Date Expiration Date Visits Requ ested Visits Authorized [id number] Closed 11/12/2018 11/12/2019 1 1 ENT DAY COORDINATOR Reason for Visit Diagnostic Imaging CT Scan - Closed Specialty Diagnoses / Procedures Referred By Contact Refer red To Contact Radiology. Diagnoses Thoracic aortic aneurysm (H) Juan Lewis MD Ct Scan Procedures CTA Chest Abdomen Pelvis w Contrast [address] [place] [address] [place] [address] Referral ID Status Reason Start Date Expiration Date Visits Requ ested Visits Authorized [id number] Closed 11/12/2018 11/12/2019 1 1 Encounter Details Date Type Department Care Team Description 11/26/2018 [facility] Non-Fv Credentialed Pro vider, Lab Thoracic aortic Encounter [facility] Butch Brown MD [address] [place] [id number] aneurysm (H) [address] [place] [address] Social [...] R esults for this PELVIS W CONTRAST PATIENT DAY COORDINATOR aneurysm (H) procedure are in the results section. documented in this encounter Results CTA Chest Abdomen Pelvis w Contrast (11/26/2018 9:03 AM PATIENT DAY COORDINATOR) Anatomical Region Laterality Modality Lower Extremity, SUBRAD IR PROCEDURE, UMP CT CTA, RAD Computed Tomography CT Specimen (Source) Anatomical Location Collection Method / Collectio n Time Received Time / Laterality Volume Impressions 11/26/2018 4:44 PM PATIENT DAY COORDINATOR IMPRESSION: 1. New thoracic aortic endograft. Tandem areas of aneurysmal dilatation are relatively unchanged in s ize. No visible endoleak. Recommend annual surveillance. 2. Infrarenal abdominal aortic aneurysm measuring 4.6 x 4.6 cm, unchanged. 3. Somewhat irregular fluid collection i n left groin, likely postoperative seroma. Surrounding enlarg ed lymph nodes. TANNER STARKS MD Narrative 11/26/2018 4:44 PM PATIENT DAY COORDINATOR CTA CHEST, ABDOMEN AND PELVIS WITH CONTRAST [...] ([id number]-[id number]) solution 80 Given 11/26/2018 8:30 AM PATIENT DAY COORDINATOR 80 mLs mL 80 mL, Intravenous, ONCE, On Thu11/26/18 at 0830, For 1 dose Saline Flush Given 11/26/2018 8:30 AM PATIENT DAY COORDINATOR 80 mLs Intravenous, 80 mL, ONCE, On [...] documented as of this encounter Care Teams Neuropsychology Division Chief Relationship Specialty Start Date End Date [facility] [place] PCP - General 05/12/[address] [place] [address] documented as of this encounter
--- OUTSIDE RECORDS SUMMARY | 2022-06-05 13:46 | XMS_ITS | Encounter Summary ---
:1940 Author Organization [place] Address [address] [facility] [place] [address] Care Team Providers Name Role Phone Clinic, [facility] Primary Care Provider [phone] Reason for Visit Diagnostic Imaging CT Scan (Routine) - Closed Specialty Diagnoses / Procedures Referred By Contact Refer red To Contact Radiology. Diagnoses Thoracic aortic aneurysm (H) Butch Brown MD Ct Scan Procedures CT Chest Abdomen Pelvis w/o Contrast CTA Chest Abdomen Pelvis w Contrast [address] [place] [address] [place] [address] [place] [address] Referral ID Status Reason Start Date Expiration Date Visits Requ ested Visits Authorized [id number] Closed 11/26/2018 11/26/2019 1 1 Encounter Details Date Type Department Care Team Description 05/17/2019 Hospital Encounter [facility] MD [place] aneurysm (H) [address] [place] [address] [address] [place] [id number] Social History Tobacco Use Types Packs/Day Years [...] CDT 10:23 AM CDT Butch Brown MD [facility] POCT Performing Organization Address City/State/ZIP [...] documented as of this encounter Care Teams Switch Operator Relationship Specialty Start Date End Date [facility] PCP - General 05/12/[address] [place] [address] documented as of this encounter
--- OUTSIDE RECORDS SUMMARY | 2022-06-05 13:46 | XMS_ITS | Encounter Summary ---
:1940 Author Organization [place] Address [address] [place] [address] Care Team Providers Name Role Phone [facility], [facility] Primary Care Provider [phone] Encounter Details Date Type Department Care Team [...] documented as of this encounter Care Teams Routing Equipment Tender Relationship Specialty Start Date End Date [facility], [facility] PCP - General 05/12/[address] [place] [address] documented as of this encounter
--- OUTSIDE RECORDS SUMMARY | 2022-06-05 13:46 | XMS_ITS | Encounter Summary ---
:1940 Author Organization [place] Address [address] [facility] [place] [address] Care Team Providers Name Role Phone [facility], [facility] Primary Care Provider [phone] Reason for Referral Diagnostic Imaging CT Scan (Routine) - Closed Specialty Diagnoses / Procedures Referred By Contact Refer red To Contact Radiology. 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 (H) Butch Brown MD Rh Ct Scan [facility] Procedures CT Chest Abdomen Pelvis w/o Contrast [address] [place] [address] [place] [address] [place] [address] [place] [address] Phone: Fax: Referral ID Status Reason Start Date Expiration Date Visits Requ ested Visits Authorized [id number] Closed 05/17/2019 05/16/2020 1 1 Encounter Details Date Type Department Care Team Description 05/17/[address] [facility] Butch Brown Abdominal aortic Vascular Clinic Félix Jay MD aneurysm (AAA) without [address] ru pture (H) (Primary [address] Dx) [place] [address] [place] [address] [phone] Social History Tobacco Use Types Packs/Day Years [...] Abdomen Pelvis w/o Contrast (11/09/2019 11:25 AM ORDER ANALYST) Anatomical Region Laterality Modality Abdomen/Pelvis, SUBRAD CT BODY, UMP CT CHEST, UMP CT Computed Tomography ABDOMEN PELVIS, Chest, RAD CT Specimen (Source) Anatomical Location Collection Method / Collectio n Time Received Time / Laterality Volume Impressions 11/09/2019 3:17 PM ORDER ANALYST IMPRESSION: 1. 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 2. The aneurysm sac in the distal thorac ic aorta and an infrarenal abdominal aortic aneurysm have increased slightly in size since the previous exam. 3. Moderate age-indeterminate anterior c ompression of the T7 vertebral body is new since the previous exam. JON NICHOLS MD Narrative 11/09/2019 3:[address] CHEST, ABDOMEN AND PELVIS WITHOUT CONTRAST [...] documented as of this encounter Care Teams Drama Teacher Relationship Specialty Start Date End Date [facility], [facility] PCP - General 05/12/[address] [place] [address] documented as of this encounter
--- OUTSIDE RECORDS SUMMARY | 2022-06-05 13:46 | XMS_ITS | Encounter Summary ---
:1940 Author Organization [place] Address [facility] [place] [address] Care Team Providers Name Role Phone Clinic, [facility] Primary Care Provider [phone] Encounter Details Date Type Department Care Team Description 11/26/2018 [facility] Butch Brown Thoracic a ortic Vascular Clinic Félix Jay MD aneurysm (H) (Primary [address] Dx ) [address] [place] [address] [place] [address] Social History Tobacco Use Types Packs/Day Years [...] documented as of this encounter Care Teams Tank Truck Loader Relationship Specialty Start Date End Date [facility], [facility] PCP - General 05/12/[address] [place] [address] documented as of this encounter
--- OUTSIDE RECORDS SUMMARY | 2022-06-05 13:46 | XMS_ITS | Encounter Summary ---
:1940 Author Organization [place] Address [address] [place] [address] Care Team Providers Name Role Phone [facility], [facility] Primary Care Provider [phone] Encounter Details Date Type Department Care Team [...] documented as of this encounter Care Teams Direct Care Staffer Relationship Specialty Start Date End Date [facility], [facility] PCP - General 05/12/[address] [place] [address] documented as of this encounter
--- OUTSIDE RECORDS SUMMARY | 2022-06-05 13:46 | XMS_ITS | Encounter Summary ---
:1940 Author Organization [place] Address [address] [facility] [place] [address] Care Team Providers Name Role Phone [facility], [facility] Primary Care Provider [phone] Reason for Referral Diagnostic Imaging CT Scan - Closed Specialty Diagnoses / Procedures Referred By Contact Refer red To Contact Radiology. Diagnoses Thoracic aortic aneurysm (H) Juan Lewis MD Ct Scan Procedures CTA Chest Abdomen Pelvis w Contrast [address] [place] [address] [place] [address] Referral ID Status Reason Start Date Expiration Date Visits Requ ested Visits Authorized [id number] Closed 11/12/2018 11/12/2019 1 1 ICAL DOCUMENTATION CONSULTANT Encounter Details Date Type Department Care Team Description 11/12/2018 [facility] Only [facility] Juan Lewis Thoracic aortic Vascular Clinic Félix Nava MD aneurysm (H) (Primary [address] Dx ) [address] [place] [address] [place] [address] Social History Tobacco Use Types Packs/Day Years [...] Abdomen Pelvis w Contrast (11/26/2018 9:03 AM CLINICAL DOCUMENTATION CONSULTANT) Anatomical Region Laterality Modality Lower Extremity, SUBRAD IR PROCEDURE, UMP CT CTA, RAD Computed Tomography CT Specimen (Source) Anatomical Location Collection Method / Collectio n Time Received Time / Laterality Volume Impressions 11/26/2018 4:44 PM CLINICAL DOCUMENTATION CONSULTANT IMPRESSION: 1. New thoracic aortic endograft. Tandem areas of aneurysmal dilatation are relatively unchanged in s ize. No visible endoleak. Recommend annual surveillance. 2. Infrarenal abdominal aortic aneurysm measuring 4.6 x 4.6 cm, unchanged. 3. Somewhat irregular fluid collection i n left groin, likely postoperative seroma. Surrounding enlarg ed lymph nodes. TANNER STARKS MD Narrative 11/26/2018 4:44 PM CLINICAL DOCUMENTATION CONSULTANT CTA CHEST, ABDOMEN AND PELVIS WITH CONTRAST [...] documented as of this encounter Care Teams Construction Equipment Overhauler Relationship Specialty Start Date End Date [facility], [facility] PCP - General 05/12/17 [address] [place] [address] documented as of this encounter
--- OUTSIDE RECORDS SUMMARY | 2022-06-05 13:47 | XMS_ITS | Encounter Summary ---
:1940 Author Organization [facility] Address [facility] [place] [address] Care Team Providers Name Role Phone Clinic, [facility] Primary Care Provider [phone] Reason for Referral Therapeutic Imaging/IR - Closed Specialty Diagnoses / Procedures Referred By Contact Refer red To Contact Diagnoses Descending thoracic aortic aneurysm (H) Juan Lewis MD Procedures IR Thoracic Endovascular Stent Graft [address] [place] [address] Referral ID Status Reason Start Date Expiration Date Visits Requ ested Visits Authorized [id number] Closed 10/28/2018 10/28/2019 1 1 RY DRIER Reason for Visit Auth/Cert Specialty Diagnoses / Procedures Referred By Contact Refer red To Contact Surgery Diagnoses DESCENDING THORACIC AORTIC ANEURYSM Sh Periop Services Procedures ENDOVASCULAR REPAIR ANEURYSM THORACIC AORTIC [address] [place] [address] Phone: Referral ID Status Reason Start Date Expiration Date Visits Requ ested Visits Authorized [id number] 1 1 Encounter Details Date Type Department Care Team Description 11/05/2018 - Hospital Encounter [facility] Elizabeth Lewis MD [address] [place] [id number] Thoracic aortic aneurysm without rupture (H) (Primary Dx); 11/09/2018 Gallito Sommers MD [address] [place] [id number] Descending thoracic aortic aneurysm (H) Intermediate Care Butch Brown MD [address] [place] [id number] [address] [phone] Social History Tobacco Use [...] Comments Blood Pressure 158/88 11/09/2018 8:28 AM ROTARY DRIER Pulse 100 11/09/2018 5:00 AM ROTARY DRIER Temperature 36.6 ??C (97.9 ??F) 11/09/2018 7:31 AM ROTARY DRIER Respiratory Rate 22 11/09/2018 8:00 AM ROTARY DRIER Oxygen Saturation 93% 11/09/2018 5:00 AM ROTARY DRIER Inhaled Oxygen Concentration - - Weight 87.3 kg (192 lb 7.4 oz) 11/09/2018 6:39 AM ROTARY DRIER Height 167.6 cm (5' 6) 11/05/2018 6:27 AM ROTARY DRIER Body Mass Index 31.06 11/05/2018 6:27 AM ROTARY DRIER documented in this encounter Discharge Summaries Bessy Mccray MD - 11/09/2018 10:56 AM CST Physician Discharge Summary Patient ID: Speedy Hendricks [id number] 78 year old 1940 Admit date: 11/05/2018 [...] an oral diet. He was discharged to [facility] on POD#4 in stable condition. [...] to. Signed: Bessy Mccray 11/09/2018 10:56 AM RY DRIER Associated attestation - Juan Lewis MD - 11/11/2018 3:10 PM ROTARY DRIER Physician Attestation I, Juan Lewis, have reviewed [...] Traylor RN - 11/09/2018 11:47 AM CST RY DRIER AttachmentsThe following attachments cannot be sent through Care Everywhere.(S) TREATING A THORACIC AORTIC ANEURYSM (TAA): ENDOVASCULAR GRAFT (UKRAINIAN) documented in this encounter Medications at Time [...] home with family via car.All questions answered. RY DRIER Gurwinder Godoy MD - 11/09/2018 12:02 PM CST [facility] Vascular Medicine Progress Note Date of Service (when I saw the patient): 11/09/2018 Physician Supervisory Attestation: I have reviewed and discussed with the physician assistant activities director their history, physical and plan and [...] Discussed with vascular surgery service. Gurwinder Godoy MD,[facility] Vascular Medicine service 11/09/2018 Assessment & [...] Rate: 93 Resp: 22 SpO2: 93 % U3Kpdzqm: None (Room air) Vitals: 11/06/18 0211 11/07/18 [...] = values in this interval not displayed. RY DRIER Bessy Mccray MD - 11/09/2018 7:36 AM [...] Bessy Martinez MD Vascular Surgery Fellow Pager RY DRIER Associated attestation - Butch Brown MD - 11/16/2018 9:50 AM ROTARY DRIER I was involved with the assessment and plan, and I agree with the findings and plan of care as documented in the fellow's note. MD Wilfredo Castillo Carley, JOSE - 11/08/2018 6:35 PM CST Pt arrived to station 33 @ 1820 RY DRIER Aura Crooks RN - 11/08/2018 5:05 PM CST Pt had drained removed this AM. Draining moderate amount- MDA aware. SR. BP wnl- gave hydralazine x1prn. Chapman to be removed prior to transfer. Lines out and hemostasis achieved. Up to chair- tolerated well, SBA. Frequent neuros- wnl. Will call report to [facility] and will transfer at p. RY DRIER Dimas Chapman MD - 11/08/2018 12:41 PM CST [facility] Vascular Medicine Progress Note Date [...] -- AST 19 -- -- -- -- RY DRIER Bessy Mccray MD - 11/08/2018 8:18 AM [...] Bessy Martinez MD Vascular Surgery Fellow Pager RY DRIER Associated attestation - Butch Brown MD - 11/16/2018 3:00 PM ROTARY DRIER I was involved with the assessment and [...] please contact primary service first. Kaleb Rodriguez RY DRIER Kristy Castañeda RN - 11/08/2018 6:50 AM [...] any neuro changes. ?? Zakia Tobin MD. RY DRIER Bart Feliciano MD - 11/07/2018 3:39 PM [...] drain tubing following unclamping[place] [id number] down from 100s yesterday. At this time, [...] with any neuro changes. Bart Feliciano MD. RY DRIER Christina Burrell MD - 11/07/2018 3:03 PM [...] Christina Burrell MD Vascular Surgery Fellow Pgr RY DRIER Bishop Tran MD - 11/07/2018 11:55 AM CST Infection Control Specialist: S: Mild groin pain this morning, but [...] Dr. Staley of vascular medicine at bedside. Infection Control Specialist service will sign off for now. Please re-consult as needed. RY DRIER Gurwinder Godoy MD - 11/07/2018 9:09 AM CST [facility] Vascular Medicine Progress Note Date [...] If any change in neuro status contact [facility] surgery first and consider neurocritical care [...] good Reviewed last night events, discussed with Infection Control Specialist and ICU nursing staff this am. Patients [...] . Avoid nephrotoxic meds. ?? Gurwinder Godoy MD,[facility] Vascular Medicine Interval History Reviewed last [...] 7.8* 8.6 -- GLC 115* 121* -- RY DRIER Danette Peck RN - 11/07/2018 8:50 AM [...] to keep SBP <160 and MAP >80. RY DRIER Gurwinder Godoy MD - 11/06/2018 12:00 PM CST [facility] Vascular Medicine Progress Note Date [...] . Avoid nephrotoxic meds. ?? Gurwinder Godoy MD,[facility] Vascular Medicine Interval History Reviewed last [...] 7.8* 8.6 -- GLC 115* 121* -- RY DRIER Millie Handley APRN LOG CHECK SCALER - 11/06/2018 11:55 AM CST Critical Care [...] Total critical care time today 35 min. RY DRIER Associated attestation - Bishop Tran MD - 11/12/2018 10:50 AM ROTARY DRIER Physician Attestation I, Bishop Tran, have reviewed [...] sufficient urine. Continue plan as documented in [facility] INSTRUMENT TUNER note. The patient does not seem to [...] for the 11/05/2018 admission is complete. See [facility] admission navigator for prior to admission medications Medication history source reliability:Good Medication history interview source(s):Patient Medication history resources (including written lists, pill bottles, clinic record):Patient mailed in his medication list prior to surgery Primary pharmacy.[facility] Additional medication history information not noted on BRAIDER TENDER med list :None Time spent in this [...] Bedtime 11/04/2018 at 2200 Yes Reported, Patient RY DRIER documented in this encounter Procedure Notes Missael [...] management per anethesia/vasc surg Missael Garcia MD [phone] RY DRIER documented in this encounter Consult Notes Kaleb Rodriguez NP - 11/05/2018 5:14 PM CSTAssociated Order(s): HOME HELP AIDE IP CONSULT [facility] Consult Critical Care Service Date [...] Code Status Full Code Primary Care Physician [facility] Chief Complaint S/p TEVAR History [...] IR Lumbar Drain Placement w Fluoro Narrative [facility] INTERVENTIONAL NEURORADIOLOGY PROCEDURAL NOTE FLUOROSCOPICALLY GUIDED PERCUTANEOUS [...] CPT codes included for physician reference only: 50504/57608 MISSAEL GARCIA MD Glucose by meter Result Value Ref Range Glucose 124 (H) 70 - 99 mg/dL RY DRIER Associated attestation - Olive Bello MD - 11/05/2018 10:58 PM ROTARY DRIER ICU STAFF: I have discussed Mr. Hendricks's [...] management per vascular surgery. Olive Bello MD #[id number] 11/05/18 Bill as Advanced Practice Provider only. Gurwinder Godoy MD - 11/05/2018 1:40 PM CST [facility] Vascular Medicine Consultation Date of Admission: 11/05/2018 Date of Consult (When I saw the patient): 11/05/18 Physician Supervisory Attestation: I have reviewed and discussed with the physician assistant activities director their history, physical and plan and [...] consult Copy to Dr. Debbie Godoy MD ,[facility] Vascular Medicine 11/05/2018 Assessment & Plan [...] 78 year old male Primary Care Physician [facility] History of Present Illness Speedy [...] Labs Lab Test 11/05/18 0655 A1C 5.2 RY DRIER documented in this encounter Nursing Notes Isis Rivera RN - 11/05/2018 8:40 AM CST Noted swelling left ankle RY DRIER documented in this encounter Miscellaneous Notes Plan [...] sites soft, bruised, CMS intact. Voiding okay. RY DRIER Plan of Care - Misty Villalobos RN - 11/08/2018 7:10 PM CST A/O x4. AVSS on RA. Tele NSR. Hydralazine given x1. Up SBA. Neuros intact. CMS intact. Groin sites, steri strips. Back site, moist drainage. Pulses, palpable, +2. Regular diet. Chapman removed at 1740, Due to void. RY DRIER Provider Notification - Aura Crooks RN - 11/08/2018 11:37 AM CST MD NOTIFICATION Person Notified: MDA Notified Person's Name: Yeimi Notification Date/Time: 11/08/2017 1135 Notification Interaction: Paged physician Purpose of Notification: Pt remains to have drainage from lumbar drain site. Orders Received: MDA to come assess pt. RY DRIER Plan of Care - Kristy Castañeda RN [...] access readiness for lumbar drain removal today. RY DRIER Provider Notification - Kristy Castañeda RN - [...] assess pulling the drain. Kristy Castañeda RN RY DRIER Plan of Care - Aura Crooks RN - 11/07/2018 6:17 PM CST Neuro: LUCAS- strength 5/5. PERRL. Complains of soreness in groin/hips from moving them too much. Ptup in chair for a hour and tolerated well. Ok'd with Anesthesia MD, Laporte, to get up in chair forno more [...] some blood in tubing- Anesthesia MD aware. RY DRIER Plan of Care - Danette Peck RN - 11/07/2018 1:12 PM CST [id number] Continued with numbness bilateral top of thighs. [...] and dtr in room when Drs here. RY DRIER Provider Notification - Ramiro Lozano RN - 11/07/2018 6:17 AM CST Paged vascular surgery fellow Ashanti regarding new numbness to anterior thighs. CSF has been drained, will begin 500ml bolus unless directed otherwise. RY DRIER Plan of Care - Ramiro Lozano RN [...] clamped now. Daughter Raquel updated this morning. RY DRIER Provider Notification - Ramiro Lozano RN - 11/07/2018 5:[address] Wang regarding new leg pain and ICP increase. Opening drain for 15ml CSF over 1 hr per order. RY DRIER Plan of Care - Danette Peck RN - 11/06/2018 4:34 PM CST [id number] Neuro checks remain intact. Able to move [...] be retested for MRSA per infection control. RY DRIER Plan of Care - Ramiro Lozano RN [...] this shift. Daughter Raquel updated this morning. RY DRIER Plan of Care - Danette Peck RN - 11/05/2018 9:43 PM CST [id number] Neuro: intact. Able to move hips slightly [...] by physicians. Care transferred to next nurse. RY DRIER Provider Notification - Ramiro Lozano RN - 11/05/2018 7:46 PM CST Notified housing development specialist regarding failure to meet MAP goal of 80, new orders received. RY DRIER Op Note - Butch Brown MD - [...] descending aortic angiogram SURGEON: Butch Brown MD RECREATION CLERK: Kannan Morse MD; Bessy Mas MD - [...] then able to upsized to a 6 Macedonian sheath over a Bentson wire.The patient was [...] femoral artery and upsized to an 11 Macedonian sheath. We then able to insert JULIANE [...] was removed and backfilled with a 16 Macedonian dry seal on the left.At this point [...] superficial femoral artery access which was 6 Macedonian sheath with an Angio-Seal closure device performed [...] the drain. Butch Brown MD Vascular Surgery RY DRIER Brief Op Note - Bessy Mccray MD - 11/05/2018 12:29 PM CST [facility] Brief Operative Note Pre-operative diagnosis: [...] Palp DP bilaterally Complications: None. Implants: None. RY DRIER Associated attestation - Butch Brown MD - 11/05/2018 1:09 PM ROTARY DRIER Butch Brown MD IR Note - Gwen Rivas RN - 11/05/2018 10:27 AM CST Interventional Radiology Intra-procedural Nursing Note Patient Name: Speedy Hendricks Today's Date: November 05, 2018 Start Time: 0850 End of procedure time: 904 Procedure: lumbar drain placement Report given to: Dr. See, anesthesia Time pt departs: 919 Corrections Unit Supervisor: n/a Other Notes: patient tolerated well. Drain connected to closed drainage system flushed with preservative free NS per Dr. Haro. 1mg Versed and 50mcg Fentanyl IV given for additional sedation (had received 4mg Versed and 100mcg Fentanyl in pre-op prior to arrival). SR on monitor .VSS. Patient taken back to pre-op bay in stable condition. Gwen Rivas RNdinking machine operator Radiology RY DRIER documented in this encounter Plan of Treatment Not on filedocumented as of this encounter Procedures Procedure Name Priority Date/Time Associated Comments Diagnosis CBC WITH PLATELETS & Routine 11/09/2018 7:41 AM Descending tho racic Results for this DIFFERENTIAL ROTARY DRIER aortic aneurysm (H) procedur e are in the results section. COMPREHENSIVE Routine 11/09/2018 7:41 AM Descending thoracic R esults for this METABOLIC PANEL ROTARY DRIER aortic aneurysm (H) proce dure are in the results section. MAGNESIUM Routine 11/08/2018 3:40 AM Descending thoracic Re sults for this ROTARY DRIER aortic aneurysm (H) procedur e are in the results section. COMPREHENSIVE Routine 11/08/2018 3:40 AM Descending thoracic R esults for this METABOLIC PANEL ROTARY DRIER aortic aneurysm (H) proce dure are in the results section. CBC WITH PLATELETS Routine 11/08/2018 3:40 AM Descending thora cic Results for this ROTARY DRIER aortic aneurysm (H) procedur e are in the results section. CBC WITH PLATELETS STAT 11/07/2018 3:00 PM Descending thora cic Results for this ROTARY DRIER aortic aneurysm (H) procedur e are in the results section. CBC WITH PLATELETS & Timed 11/07/2018 9:50 AM Descending tho racic Results for this DIFFERENTIAL ROTARY DRIER aortic aneurysm (H) procedur e are in the results section. MAGNESIUM Routine 11/07/2018 9:50 AM Descending thoracic Re sults for this ROTARY DRIER aortic aneurysm (H) procedur e are in the results section. BASIC METABOLIC PANEL Timed 11/07/2018 9:50 AM Descending th oracic Results for this ROTARY DRIER aortic aneurysm (H) procedur e are in the results section. GLUCOSE BY METER Routine 11/07/2018 7:44 AM Descending thoraci c Results for this ROTARY DRIER aortic aneurysm (H) procedur e are in the results section. GLUCOSE BY METER Routine 11/07/2018 3:49 AM Descending thoraci c Results for this ROTARY DRIER aortic aneurysm (H) procedur e are in the results section. GLUCOSE BY METER Routine 11/07/2018 12:08 Descending thoracic Results for this AM ROTARY DRIER aortic aneurysm (H) procedur e are in the results section. GLUCOSE BY METER Routine 11/06/2018 7:53 PM Descending thoraci c Results for this ROTARY DRIER aortic aneurysm (H) procedur e are in the results section. GLUCOSE BY METER Routine 11/06/2018 11:02 Descending thoracic Results for this AM ROTARY DRIER aortic aneurysm (H) procedur e are in the results section. GLUCOSE BY METER Routine 11/06/2018 7:38 AM Descending thoraci c Results for this ROTARY DRIER aortic aneurysm (H) procedur e are in the results section. LACTIC ACID WHOLE Routine 11/06/2018 4:15 AM Descending thorac ic Results for this BLOOD ROTARY DRIER aortic aneurysm (H) procedur e are in the results section. BASIC METABOLIC PANEL Routine 11/06/2018 4:15 AM Descending th oracic Results for this ROTARY DRIER aortic aneurysm (H) procedur e are in the results section. CBC WITH PLATELETS Routine 11/06/2018 4:15 AM Descending thora cic Results for this ROTARY DRIER aortic aneurysm (H) procedur e are in the results section. GLUCOSE BY METER Routine 11/06/2018 1:12 AM Descending thoraci c Results for this ROTARY DRIER aortic aneurysm (H) procedur e are in the results section. MRSA MSSA PCR, NASAL STAT 11/05/2018 11:41 Descending thora cic Results for this SWAB PM ROTARY DRIER aortic aneurysm (H) procedur e are in the results section. GLUCOSE BY METER Routine 11/05/2018 8:16 PM Descending thoraci c Results for this ROTARY DRIER aortic aneurysm (H) procedur e are in the results section. GLUCOSE BY METER Routine 11/05/2018 4:39 PM Descending thoraci c Results for this ROTARY DRIER aortic aneurysm (H) procedur e are in the results section. INR STAT 11/05/2018 4:35 PM Descending thoracic Re sults for this ROTARY DRIER aortic aneurysm (H) procedur e are in the results section. LACTIC ACID WHOLE STAT 11/05/2018 4:35 PM Descending thorac ic Results for this BLOOD ROTARY DRIER aortic aneurysm (H) procedur e are in the results section. BASIC METABOLIC PANEL STAT 11/05/2018 4:35 PM Descending th oracic Results for this ROTARY DRIER aortic aneurysm (H) procedur e are in the results section. CBC WITH PLATELETS STAT 11/05/2018 4:35 PM Descending thora cic Results for this ROTARY DRIER aortic aneurysm (H) procedur e are in the results section. IR THORACIC Routine 11/05/2018 12:09 Descending thoracic Resu lts for this ENDOVASCULAR STENT PM ROTARY DRIER aortic aneurysm (H) pr ocedure are in GRAFT the results section. REPAIR, ANEURYSM, 11/05/2018 9:35 AM DESCENDING THORAC IC THORACIC AORTIC, ROTARY DRIER AORTIC ANEURYSM ENDOVASCULAR Special Needs BLOOD TRANSFUSION ISSUE (RAR E ANTIBODIES) PT WILL DO A TYPE AND CROSS ON 11/03 JALEEL 10/28 IR LUMBAR DRAIN Routine 11/05/2018 9:10 AM Result s for this PLACEMENT W FLUORO ROTARY DRIER procedure are in the results section. EKG 12-LEAD, TRACING STAT 11/05/2018 6:58 AM R esults for this ONLY ROTARY DRIER procedure are i n the results section. POTASSIUM STAT 11/05/2018 6:55 AM Descending thoracic Re sults for this ROTARY DRIER aortic aneurysm (H) procedur e are in the results section. LIPID PROFILE STAT 11/05/2018 6:55 AM Descending thoracic R esults for this ROTARY DRIER aortic aneurysm (H) procedur e are in the results section. HEMOGLOBIN A1C STAT 11/05/2018 6:55 AM Descending thoracic Results for this ROTARY DRIER aortic aneurysm (H) procedur e are in the results section. CREATININE STAT 11/05/2018 6:55 AM Descending thoracic Re sults for this ROTARY DRIER aortic aneurysm (H) procedur e are in the results section. XR CHEST PORT 1 VIEW STAT 11/05/2018 6:40 AM R esults for this ROTARY DRIER procedure are i n the results section. EKG CARDIAC - HIM 09/24/2018 12:00 AM SCAN ROTARY DRIER documented in this encounter Results (ABNORMAL) CBC with platelets differential (11/09/2018 7:41 AM [facility]) Component Value Ref Test Analysis Performed At [facility] Range Method Time Signature WBC 9.3 4.0 - 11/09/2018 [facility] 11.0 8:06 AM [place] [id number] RBC Count 3.55 (L) 4.4 - 11/09/2018 [facility] 5.9 8:06 AM [place] [id number] Hemoglobin 11.3 (L) 13.3 - 11/09/2018 [facility] 17.7 8:06 AM [facility] Hematocrit 33.7 (L) 40.0 - 11/09/2018 [facility] 53.0 % 8:06 AM [facility] MCV 95 78 - 100 11/09/2018 [facility] fl 8:06 AM [facility] MCH 31.8 26.5 - 11/09/2018 [facility] 33.0 pg 8:06 AM [facility] MCHC 33.5 31.5 - 11/09/2018 [facility] 36.5 8:06 AM [facility] RDW 13.9 10.0 - 11/09/2018 [facility] 15.0 % 8:06 AM [facility] Platelet Count 83 (L) 150 - 11/09/2018 [facility] 450 8:[address] Diff Method Manual 11/09/2018 [facility] Differential 8:31 AM [facility] % Neutrophils 85.0 % 11/09/2018 [facility] 8:31 AM [facility] % Lymphocytes 6.0 % 11/09/2018 [facility] 8:31 AM [facility] % Monocytes 7.0 % 11/09/2018 [facility] 8:31 AM [facility] % Eosinophils 2.0 % 11/09/2018 [facility] 8:31 AM [facility] % Basophils 0.0 % 11/09/2018 [facility] 8:31 AM [facility] Absolute 7.9 1.6 - 11/09/2018 [facility] Neutrophil 8.3 8:[address] Absolute 0.6 (L) 0.8 - 11/09/2018 [facility] Lymphocytes 5.3 8:[address] Absolute 0.7 0.0 - 11/09/2018 [facility] Monocytes 1.3 8:[address] Absolute 0.2 0.0 - 11/09/2018 [facility] Eosinophils 0.7 8:[address] Absolute 0.0 0.0 - 11/09/2018 [facility] Basophils 0.2 8:[address] RBC Morphology Consistent with 11/09/2018 [facility] reported results 8:31 AM [facility] Platelet Automated count 11/09/2018 [facility] Estimate confirmed. 8:31 AM [facility] morphology is normal. Specimen Anatomical Collection Method Collection Time Receive d Time (Source) Location / / Volume Laterality Blood specimen 11/09/2018 7:41 AM 019 7:51 (specimen) ROTARY DRIER AM ROTARY DRIER Dimas Chapman MD LAB - BLOOD ORDERABLES Performing Organization Address City/State/ZIP Code Phon e Number M [facility] [address] [place] [phone] [facility] [address] [address], [facility] [phone] (ABNORMAL) Comprehensive metabolic panel (11/09/2018 7:41 AM [facility]) P athologist Signature Sodium 144 133 - 144 11/09/2018 [place] mmol/L 8:11 AM [facility] Potassium 4.0 3.4 - 5.3 11/09/2018 [place] mmol/L 8:11 AM [facility] Chloride 113 (H) 94 - 109 11/09/2018 [place] mmol/L 8:11 AM [facility] Carbon Dioxide 22 20 - 32 11/09/2018 [place] mmol/L 8:17 AM [facility] Anion Gap 9 3 - 14 11/09/2018 [place] mmol/L 8:17 AM [facility] Glucose 94 70 - 99 11/09/2018 [place] mg/dL 8:17 AM [facility] Urea Nitrogen 21 7 - 30 11/09/2018 [place] mg/dL 8:17 AM [facility] Creatinine 1.24 0.66 - 11/09/2018 [place] 1.25 mg/dL 8:17 AM [facility] GFR Estimate 56 (L) >60 11/09/2018 [place] mL/min/{1. 8:17 AM [facility] 73_m2} HOSPITAL Comment: Non GFR Calc Starting 10/05/2018, serum creatinine ba sed estimated GFR (eGFR) will be calculated using the Chronic Kidney Dise [facility] Epidemiology Collaboration (CKD-EPI) equation. GFR Estimate If 65 >60 mL/min/{1.73_m2} 11/09/2018 8: [address] [facility] Comment: GFR Calc Starting 10/05/2018, serum creatinine ba sed estimated GFR (eGFR) will be calculated using the Chronic Kidney Dise [facility] Epidemiology Collaboration (CKD-EPI) equation. Calcium 8.4 (L) 8.5 - 10.1 11/09/2018 8:17 AM [facility] mg/dL [facility] Bilirubin Total 1.3 0.2 - 1.3 mg/dL 11/09/2018 8:19 AM [facility] Albumin 2.4 (L) 3.4 - 5.0 g/dL 11/09/2018 8:19 AM [facility] Protein Total 6.2 (L) 6.8 - 8.8 g/dL 11/09/2018 8:19 AM [facility] Alkaline Phosphatase 72 40 - 150 U/L 11/09/2018 8:19 AM [facility] ALT 17 0 - 70 U/L 11/09/2018 8:19 AM [facility] AST 15 0 - 45 U/L 11/09/2018 8:19 AM [facility] Specimen Anatomical Collection Method Collection Time Receive d Time (Source) Location / / Volume Laterality Blood specimen 11/09/2018 7:41 AM 019 7:51 (specimen) ROTARY DRIER AM [facility] Dimas Chapman MD LAB - BLOOD ORDERABLES Performing Organization Address City/State/ZIP Code Phon e Number M M [facility] [address] [address] [facility] [address] [place] [address], [place] [phone] Magnesium Level scheduled every Thu Wed Thu (11/08/2018 3:40 AM ROTARY DRIER) P athologist Signature Magnesium 1.7 1.6 - 2.3 11/08/2018 [facility] mg/dL 4:06 AM [facility] Specimen Anatomical Collection Method Collection Time Receive d Time (Source) Location / / Volume Laterality Blood specimen 11/08/2018 3:40 AM 019 3:46 (specimen) ROTARY DRIER AM ROTARY DRIER Dimas Chapman MD LAB - BLOOD ORDERABLES Performing Organization Address City/State/ZIP Code Phon e Number M [facility] [address] [place] [address] [phone] [facility] [address] [place] [address], [place] [phone] (ABNORMAL) Comprehensive metabolic panel (11/08/2018 3:40 AM ROT[facility] D[facility]ER) Analysis Performed At Patho logist Time Signature Sodium 142 133 - 144 11/08/2018 [facility] mmol/L 3:58 AM [facility] Potassium 4.2 3.4 - 5.3 11/08/2018 [facility] mmol/L 3:58 AM [facility] Chloride 111 (H) 94 - 109 11/08/2018 [facility] mmol/L 3:58 AM [facility] Carbon Dioxide 22 20 - 32 11/08/2018 [facility] mmol/L 4:04 AM [facility] Anion Gap 9 3 - 14 11/08/2018 [facility] mmol/L 4:04 AM [facility] Glucose 164 (H) 70 - 99 11/08/2018 [facility] mg/dL 4:04 AM [facility] Urea Nitrogen 20 7 - 30 11/08/2018 [facility] mg/dL 4:04 AM [facility] Creatinine 1.29 (H) 0.66 - 11/08/2018 [facility] 1.25 mg/dL 4:04 AM [facility] GFR Estimate 53 (L) >60 11/08/2018 [facility] mL/min/{1. 4:04 AM [facility] 73_m2} HOSPITAL Comment: Non GFR Calc Starting 10/05/2018, serum creatinine ba sed estimated GFR (eGFR) will be calculated using the Chronic Kidney Dise [facility] Epidemiology Collaboration (CKD-EPI) equation. GFR Estimate If 62 >60 mL/min/{1.73_m2} 11/08/2018 4: [address] [facility] Comment: GFR Calc Starting 10/05/2018, serum creatinine ba sed estimated GFR (eGFR) will be calculated using the Chronic Kidney Dise [facility] Epidemiology Collaboration (CKD-EPI) equation. Calcium 8.2 (L) 8.5 - 10.1 11/08/2018 4:04 AM [facility] mg/dL [facility] Bilirubin Total 1.1 0.2 - 1.3 mg/dL 11/08/2018 4:06 AM [facility] Albumin 2.6 (L) 3.4 - 5.0 g/dL 11/08/2018 4:06 AM [facility] Protein Total 6.0 (L) 6.8 - 8.8 g/dL 11/08/2018 4:06 AM [facility] Alkaline Phosphatase 62 40 - 150 U/L 11/08/2018 4:06 AM [facility] ALT 18 0 - 70 U/L 11/08/2018 4:06 AM [facility] AST 19 0 - 45 U/L 11/08/2018 4:06 AM [facility] Specimen Anatomical Collection Method Collection Time Receive d Time (Source) Location / / Volume Laterality Blood specimen 11/08/2018 3:40 AM 019 3:46 (specimen) ROTARY DRIER AM ROTARY DRIER Gurwinder Godoy MD LAB - BLOOD ORDERABLES Performing Organization Address City/State/ZIP Code Phon e Number [facility] [address] [address] [facility] [address] [address], U [phone] (ABNORMAL) CBC (AM Draw) (11/08/2018 3:40 AM [facility] D[facility]ER) Analysis Performed At Patho logist Time Signature WBC 11.2 (H) 4.0 - 11.0 11/08/2018 [facility] 10e9/L 3:50 AM [facility] RBC Count 3.62 (L) 4.4 - 5.9 11/08/2018 [facility] 10e12/L 3:50 AM [facility] Hemoglobin 11.6 (L) 13.3 - 11/08/2018 [facility] 17.7 g/dL 3:50 AM [facility] Hematocrit 34.5 (L) 40.0 - 11/08/2018 [facility] 53.0 % 3:50 AM [facility] MCV 95 78 - 100 11/08/2018 [facility] fl 3:50 AM [facility] MCH 32.0 26.5 - 11/08/2018 [facility] 33.0 pg 3:50 AM [facility] MCHC 33.6 31.5 - 11/08/2018 [facility] 36.5 g/dL 3:50 AM [facility] RDW 13.9 10.0 - 11/08/2018 [facility] 15.0 % 3:50 AM [facility] Platelet Count 82 (L) 150 - 450 11/08/2018 [facility] 10e9/L 3:50 AM [facility] Specimen Anatomical Collection Method Collection Time Receive d Time (Source) Location / / Volume Laterality Blood specimen 11/08/2018 3:40 AM 019 3:46 (specimen) ROTARY DRIER AM ROTARY DRIER Gurwinder Godoy MD LAB - BLOOD ORDERABLES Performing Organization Address City/State/ZIP Code Phon e Number [facility] [address] [address] [facility] [address] [address], U [phone] (ABNORMAL) CBC with platelets (11/07/2018 3:00 PM [facility] D[facility]ER) Analysis Performed At Patho logist Time Signature WBC 11.1 (H) 4.0 - 11.0 11/07/2018 [facility] 10e9/L 3:08 PM [facility] RBC Count 3.74 (L) 4.4 - 5.9 11/07/2018 [facility] 10e12/L 3:08 PM [facility] Hemoglobin 11.9 (L) 13.3 - 11/07/2018 [facility] 17.7 g/dL 3:08 PM [facility] Hematocrit 35.4 (L) 40.0 - 11/07/2018 [facility] 53.0 % 3:08 PM [facility] MCV 95 78 - 100 11/07/2018 [facility] fl 3:08 PM [facility] MCH 31.8 26.5 - 11/07/2018 [facility] 33.0 pg 3:08 PM [facility] MCHC 33.6 31.5 - 11/07/2018 [facility] 36.5 g/dL 3:08 PM [facility] RDW 14.1 10.0 - 11/07/2018 [facility] 15.0 % 3:08 PM [facility] Platelet Count 87 (L) 150 - 450 11/07/2018 [facility] 10e9/L 3:08 PM [facility] Specimen Anatomical Collection Method Collection Time Receive d Time (Source) Location / / Volume Laterality Blood specimen 11/07/2018 3:00 PM 019 3:05 (specimen) ROTARY DRIER PM ROTARY DRIER Bart Feliciano MD LAB - BLOOD ORDERABLES Performing Organization Address City/State/ZIP Code Phon e Number [facility] [address] [address] [place] [id number] [address], [facility] [phone] Magnesium (11/07/2018 9:50 AM R[facility]ARY DRIER) P athologist Signature Magnesium 1.6 1.6 - 2.3 11/07/2018 [place] mg/dL 11:12 AM [facility] Specimen Anatomical Collection Method Collection Time Receive d Time (Source) Location / / Volume Laterality 11/07/2018 9:50 AM 9 ROTARY DRIER 10:04 AM [facility] D[facility]ER Gurwinder Godoy MD LAB - BLOOD ORDERABLES Performing Organization Address City/State/ZIP Code Phon e Number [facility] [address] [address] [phone] [place] [address] [place] [address], [place] [phone] (ABNORMAL) CBC with platelets differential (11/07/2018 9:50 AM [facility]) [facility] Method Time Signature WBC 10.4 4.0 - 11/07/2018 [facility] 11.0 10:13 AM [facility] 10e9/L [facility] RBC Count 3.63 (L) 4.4 - 5.9 11/07/2018 [facility] 10e12/L 10:13 AM [facility] Hemoglobin 11.5 (L) 13.3 - 11/07/2018 [facility] 17.7 g/dL 10:13 AM [facility] Hematocrit 34.3 (L) 40.0 - 11/07/2018 [facility] 53.0 % 10:13 AM [facility] MCV 95 78 - 100 11/07/2018 [facility] fl 10:13 AM [facility] MCH 31.7 26.5 - 11/07/2018 [facility] 33.0 pg 10:13 AM [facility] MCHC 33.5 31.5 - 11/07/2018 [facility] 36.5 g/dL 10:13 AM [facility] RDW 14.0 10.0 - 11/07/2018 [facility] 15.0 % 10:13 AM [facility] Platelet Count 82 (L) 150 - 450 11/07/2018 [facility] 10e9/L 10:37 AM [facility] Diff Method Automated 11/07/2018 [facility] Method 10:37 AM [facility] % Neutrophils 78.8 % 11/07/2018 [facility] 10:37 AM [facility] % Lymphocytes 6.2 % 11/07/2018 [facility] 10:37 AM [facility] % Monocytes 14.7 % 11/07/2018 [facility] 10:37 AM [facility] % Eosinophils 0.2 % 11/07/2018 [facility] 10:37 AM [facility] % Basophils 0.0 % 11/07/2018 [facility] 10:37 AM [facility] % Immature 0.1 % 11/07/2018 [facility] Granulocytes 10:37 AM [facility] Nucleated RBCs 0 0 /100 11/07/2018 [facility] 10:37 AM [facility] Absolute 8.2 1.6 - 8.3 11/07/2018 [facility] Neutrophil 10e9/L 10:37 AM [facility] Absolute 0.6 (L) 0.8 - 5.3 11/07/2018 [facility] Lymphocytes 10e9/L 10:37 AM [facility] Absolute 1.5 (H) 0.0 - 1.3 11/07/2018 [facility] Monocytes 10e9/L 10:37 AM [facility] Absolute 0.0 0.0 - 0.7 11/07/2018 [facility] Eosinophils 10e9/L 10:37 AM [facility] Absolute 0.0 0.0 - 0.2 11/07/2018 [facility] Basophils 10e9/L 10:37 AM [facility] Abs Immature 0.0 0 - 0.4 11/07/2018 [facility] Granulocytes 10e9/L 10:37 AM [facility] Absolute 0.0 11/07/2018 [facility] Nucleated RBC 10:37 AM [facility] Ovalocytes Slight 11/07/2018 [facility] 10:37 AM [facility] Platelet Automated 11/07/2018 [facility] Estimate count 10:37 AM [facility] confirmed. [facility] Platelet morphology is normal. Specimen Anatomical Collection Method Collection Time Receive d Time (Source) Location / / Volume Laterality Blood specimen 11/07/2018 9:50 AM 019 (specimen) ROTARY DRIER 10:04 AM [facility]ER Gurwinder Godoy MD LAB - BLOOD ORDERABLES Performing Organization Address City/State/ZIP Code Phon e Number [facility] [address] [address] [phone] [facility] [address] [place] [address], [place] [phone] (ABNORMAL) Basic metabolic panel (11/07/2018 9:50 AM R[facility] DRIER) Analysis Performed At Patho logist Time Signature Sodium 147 (H) 133 - 144 11/07/2018 [facility] mmol/L 10:16 AM [facility] Potassium 4.1 3.4 - 5.3 11/07/2018 [facility] mmol/L 10:16 AM [facility] Chloride 117 (H) 94 - 109 11/07/2018 [place] mmol/L 10:16 AM [facility] Carbon Dioxide 20 20 - 32 11/07/2018 [place] mmol/L 10:23 AM [facility] Anion Gap 10 3 - 14 11/07/2018 [place] mmol/L 10:23 AM [facility] Glucose 108 (H) 70 - 99 11/07/2018 [place] mg/dL 10:23 AM [facility] Urea Nitrogen 23 7 - 30 11/07/2018 [place] mg/dL 10:23 AM [facility] Creatinine 1.47 (H) 0.66 - 11/07/2018 [place] 1.25 mg/dL 10:23 AM [facility] GFR Estimate 46 (L) >60 11/07/2018 [place] mL/min/{1. 10:23 AM [facility] 73_m2} [facility]OSPITAL Comment: Non GFR Calc Starting 10/05/2018, serum creatinine ba sed estimated GFR (eGFR) will be calculated using the Chronic Kidney Dise [facility] Epidemiology Collaboration (CKD-EPI) equation. GFR Estimate If 53 (L) >60 mL/min/{1.73_m2} 11/07/2018 10 :23 AM [place] Black [facility] Comment: GFR Calc Starting 10/05/2018, serum creatinine ba sed estimated GFR (eGFR) will be calculated using the Chronic Kidney Dise [facility] Epidemiology Collaboration (CKD-EPI) equation. Calcium 8.2 (L) 8.5 - 10.1 mg/dL 11/07/2018 10:23 AM [facility] Specimen Anatomical Collection Method Collection Time Receive d Time (Source) Location / / Volume Laterality Blood specimen 11/07/2018 9:50 AM 019 (specimen) ROTARY DRIER 10:04 AM ROTARY DRIER Gurwinder Godoy MD LAB - BLOOD ORDERABLES Performing Organization Address City/State/ZIP Code Phon e Number [facility] [address] [address] [phone] [facility] [address] [address], [place] [phone] (ABNORMAL) Glucose by meter (11/07/2018 7:44 AM ROTARY DRIER) P athologist Signature Glucose 112 (H) 70 - 99 11/07/2018 [facility] mg/dL 7:56 AM ROT[facility] DRIER TEST, GLUCOSE Specimen Anatomical Collection Method Collection Time Receive d Time (Source) Location / / Volume Laterality 11/07/2018 7:44 AM 9 7:56 ROTARY DRIER AM ROTARY DRIER Juan Lewis MD LAB - BEFOUZIA POCT Performing Organization Address [facility]/ZIP Code Phon e Number [facility] POINT OF CARE TEST, GLUCOSE POINT OF CARE TEST, GLUCOSE (ABNORMAL) Glucose by meter (11/07/2018 3:49 AM ROTARY DRIER) P athologist Signature Glucose 105 (H) 70 - 99 11/07/2018 [facility] mg/dL 4:01 AM ROTARY DRIER TEST, GLUCOSE Specimen Anatomical Collection Method Collection Time Receive d Time (Source) Location / / Volume Laterality 11/07/2018 3:49 AM 9 4:01 ROTARY DRIER AM ROTARY DRIER Juan YUAN - CAROLYN POCT Performing Organization Address City/[facility]/ZIP Code Phon e Number [facility] POINT OF CARE TEST, GLUCOSE POINT OF CARE TEST, GLUCOSE (ABNORMAL) Glucose by meter (11/07/2018 12:08 AM ROTARY DRIER) P athologist Signature Glucose 119 (H) 70 - 99 11/07/2018 [facility] mg/dL 12:19 AM ROTARY DRIER TEST, GLUCOSE Specimen Anatomical Collection Method Collection Time Receive d Time (Source) Location / / Volume Laterality 11/07/2018 12:08 11/07/2018 AM ROTARY DRIER 12:19 AM ROTARY DRIER Juan YUAN - BEFOUZIA POCT Performing Organization Address City/[facility]/ZIP Code Phon e Number [facility] POINT OF CARE TEST, GLUCOSE POINT OF CARE TEST, GLUCOSE (ABNORMAL) Glucose by meter (11/06/2018 7:53 PM ROTARY DRIER) P athologist Signature Glucose 116 (H) 70 - 99 11/06/2018 [facility] mg/dL 8:04 PM ROTARY DRIER TEST, GLUCOSE Specimen Anatomical Collection Method Collection Time Receive d Time (Source) Location / / Volume Laterality 11/06/2018 7:53 PM 9 8:04 ROTARY DRIER PM ROTARY DRIER Juan Elijah Debbie MD LAB - BEAKER POCT Performing Organization Address City/State/ZIP Code Phon e Number [facility] POINT OF CARE TEST, GLUCOSE POINT OF CARE TEST, GLUCOSE (ABNORMAL) Glucose by meter (11/06/2018 11:02 AM ROTARY DRIER) P athologist Signature Glucose 109 (H) 70 - 99 11/06/2018 [facility] mg/dL 11:13 AM ROTARY DRIER TEST, GLUCOSE Specimen Anatomical Collection Method Collection Time Receive d Time (Source) Location / / Volume Laterality 11/06/2018 11:02 11/06/2018 AM ROTARY DRIER 11:13 AM ROTARY DRIER Juan Lewis MD LAB - BEAKER POCT Performing Organization Address City/State/ZIP Code Phon e Number [facility] POINT OF CARE TEST, GLUCOSE POINT OF CARE TEST, GLUCOSE (ABNORMAL) Glucose by meter (11/06/2018 7:38 AM ROTARY DRIER) P athologist Signature Glucose 104 (H) 70 - 99 11/06/2018 [facility] mg/dL 7:50 AM ROTARY DRIER TEST, GLUCOSE Specimen Anatomical Collection Method Collection Time Receive d Time (Source) Location / / Volume Laterality 11/06/2018 7:38 AM 9 7:50 ROTARY DRIER AM ROTARY DRIER Juan YUAN - BEAKER POCT Performing Organization Address City/[facility]/ZIP Code Phon e Number [facility] POINT OF CARE TEST, GLUCOSE POINT OF CARE TEST, GLUCOSE Lactic acid whole blood (11/06/2018 4:15 AM ROTARY DRIER) P athologist Signature Lactic Acid 1.4 0.7 - 2.0 11/06/2018 [place] mmol/L 4:[address] [facility] Specimen Anatomical Collection Method Collection Time Receive d Time (Source) Location / / Volume Laterality Blood specimen 11/06/2018 4:15 AM 019 4:25 (specimen) ROTARY DRIER AM ROTARY DRIER Bessy Mccray MD LAB - BLOOD ORDERABLES Performing Organization Address City/[facility]/ZIP Code Phon e Number [facility] [address] [address] [phone] [facility] [address] [address], [facility] [phone] (ABNORMAL) Basic metabolic panel (11/06/2018 4:15 AM ROTARY DRIER) Analysis Performed At Patho logist Time Signature Sodium 142 133 - 144 11/06/2018 [facility] mmol/L 4:49 AM [facility] Potassium 4.4 3.4 - 5.3 11/06/2018 [facility] mmol/L 4:49 AM [facility] Chloride 113 (H) 94 - 109 11/06/2018 [facility] mmol/L 4:49 AM [facility] Carbon Dioxide 21 20 - 32 11/06/2018 [facility] mmol/L 4:54 AM [facility] Anion Gap 8 3 - 14 11/06/2018 [facility] mmol/L 4:54 AM [facility] Glucose 115 (H) 70 - 99 11/06/2018 [facility] mg/dL 4:54 AM [facility] Urea Nitrogen 27 7 - 30 11/06/2018 [facility] mg/dL 4:54 AM [facility] Creatinine 1.57 (H) 0.66 - 11/06/2018 [facility] 1.25 mg/dL 4:54 AM [facility] GFR Estimate 42 (L) >60 11/06/2018 [place] mL/min/{1. 4:54 AM [facility] 73_m2} [facility] Comment: Non GFR Calc Starting 10/05/2018, serum creatinine ba sed estimated GFR (eGFR) will be calculated using the [facility] Epidemiology Collaboration (CKD-EPI) equation. GFR Estimate If 49 (L) >60 mL/min/{1.73_m2} 11/06/2018 4: 54 AM [place] Black [facility] Comment: GFR Calc Starting 10/05/2018, serum creatinine ba sed estimated GFR (eGFR) will be calculated using the [facility] Kid[facility] Epidemiology Collaboration (CKD-EPI) equation. Calcium 7.8 (L) 8.5 - 10.1 mg/dL 11/06/2018 4:54 AM [facility] Specimen Anatomical Collection Method Collection Time Receive d Time (Source) Location / / Volume Laterality Blood specimen 11/06/2018 4:15 AM 019 4:25 (specimen) ROTARY DRIER AM [facility] Bessy Mccray MD LAB - BLOOD ORDERABLES Performing Organization Address City/State/ZIP Code Phon e Number [facility] [address] [place] [address] [facility] [address] [place] [address], [place] [phone] (ABNORMAL) CBC with platelets (11/06/2018 4:15 AM ROTARY DRIER) Analysis Performed At Patho logist Time Signature WBC 12.9 (H) 4.0 - 11.0 11/06/2018 [facility] 10e9/L 4:45 AM [facility] RBC Count 3.93 (L) 4.4 - 5.9 11/06/2018 [facility] 10e12/L 4:45 AM [facility] Hemoglobin 12.5 (L) 13.3 - 11/06/2018 [facility] 17.7 g/dL 4:45 AM [facility] Hematocrit 36.8 (L) 40.0 - 11/06/2018 [facility] 53.0 % 4:45 AM [facility] MCV 94 78 - 100 11/06/2018 [facility] fl 4:45 AM [facility] MCH 31.8 26.5 - 11/06/2018 [facility] 33.0 pg 4:45 AM [facility] MCHC 34.0 31.5 - 11/06/2018 [facility] 36.5 g/dL 4:45 AM [facility] RDW 13.2 10.0 - 11/06/2018 [facility] 15.0 % 4:45 AM [facility] Platelet Count 153 150 - 450 11/06/2018 [facility] 10e9/L 4:45 AM [facility] Specimen Anatomical Collection Method Collection Time Receive d Time (Source) Location / / Volume Laterality Blood specimen 11/06/2018 4:15 AM 019 4:25 (specimen) ROTARY DRIER AM ROTARY DRIER Bessy Mccray MD LAB - BLOOD ORDERABLES Performing Organization Address City/State/ZIP Code Phon e Number [facility] [address] [place] [address] [facility] [address] [address], [place] [phone] (ABNORMAL) Glucose by meter (11/06/2018 1:12 AM ROTARY DRIER) P athologist Signature Glucose 126 (H) 70 - 99 11/06/2018 [facility] mg/dL 1:24 AM ROTARY DRIER TEST, GLUCOSE Specimen Anatomical Collection Method Collection Time Receive d Time (Source) Location / / Volume Laterality 11/06/2018 1:12 AM 9 1:24 ROTARY DRIER AM ROTARY DRIER Juan Lewis MD LAB - BEAKER POCT Performing Organization Address City/State/ZIP [facility] Phon e Number FV POINT OF CARE TEST, GLUCOSE POINT OF CARE TEST, GLUCOSE Methicillin Resist/Sens S. aureus PCR (11/05/2018 11:41 PM ROTARY DRIER) [facility] gist Method Time Signature Specimen Nares 11/05/2018 [place] Description 11:[address] [facility] Methicillin Negative NEG^Negat 11/06/2018 [facility] Resist/Sens S. shin 2:36 AM [facility] MEDICAL aureus PCR [facility] Comment: MRSA Negative: SA Negative ??MRSA and St aphylococcus aureus target DNA not detected, presumed negative for MRSA and SA colonization or the number of bacteria present may be below the limit of detection for the assay. FDA approved assay performed using [employer] eneXpert(R) real-time PCR. Specimen (Source) Anatomical Collection Method Collection Time Re ceived Time Location / / Volume Laterality Nasal structure 11/05/2018 11:41 11/06/19 19 (body structure) PM ROTARY DRIER Bessy Mccray MD LAB - MICRO GENERAL ORDERABL ES Performing Organization Address City/[facility] Code Phon e Number [facility] [address] [place] [address] [facility] [address] [place] [address], U [phone] (ABNORMAL) Glucose by meter (11/05/2018 8:16 PM ROTARY DRIER) P athologist Signature Glucose 128 (H) 70 - 99 11/05/2018 [facility] mg/dL 8:28 PM ROTARY DRIER TEST, GLUCOSE Specimen Anatomical Collection Method Collection Time Receive d Time (Source) Location / / Volume Laterality 11/05/2018 8:16 PM 9 8:28 ROTARY DRIER PM ROTARY DRIER Juan Lewis MD LAB - BEFOUZIA POCT Performing Organization Address City/State/ZIP Code Phon e Number [facility] POINT OF CARE TEST, GLUCOSE POINT OF CARE TEST, GLUCOSE (ABNORMAL) Glucose by meter (11/05/2018 4:39 PM ROTARY DRIER) P athologist Signature Glucose 124 (H) 70 - 99 11/05/2018 [facility] mg/dL 4:50 PM ROTARY DRIER TEST, GLUCOSE Specimen Anatomical Collection Method Collection Time Receive d Time (Source) Location / / Volume Laterality 11/05/2018 4:39 PM 9 4:50 ROTARY DRIER PM ROTARY DRIER Juan Lewis MD LAB - BEFOUZIA POCT Performing Organization Address City/State/ZIP Code Phon e Number [facility] POINT OF CARE TEST, GLUCOSE POINT OF CARE TEST, GLUCOSE (ABNORMAL) CBC with platelets (11/05/2018 4:35 PM ROTARY DRIER) Analysis Performed At Patho logist Time Signature WBC 7.3 4.0 - 11.0 11/05/2018 [facility] 10e9/L 5:22 PM [facility] RBC Count 4.35 (L) 4.4 - 5.9 11/05/2018 [facility] 10e12/L 5:22 PM [facility] Hemoglobin 13.7 13.3 - 11/05/2018 [facility] 17.7 g/dL 5:22 PM [facility] Hematocrit 40.9 40.0 - 11/05/2018 [facility] 53.0 % 5:22 PM [facility] MCV 94 78 - 100 11/05/2018 [facility] fl 5:22 PM [facility] MCH 31.5 26.5 - 11/05/2018 [facility] 33.0 pg 5:22 PM [facility] MCHC 33.5 31.5 - 11/05/2018 [facility] 36.5 g/dL 5:22 PM [facility] RDW 13.1 10.0 - 11/05/2018 [facility] 15.0 % 5:22 PM [facility] Platelet Count 108 (L) 150 - 450 11/05/2018 [facility] 10e9/L 5:22 PM [facility] Specimen Anatomical Collection Method Collection Time Receive d Time (Source) Location / / Volume Laterality Blood specimen 11/05/2018 4:35 PM 019 5:17 (specimen) [facility] PM [facility] Bessy Mccray MD LAB - BLOOD ORDERABLES Performing Organization Address City/State/ZIP Code Phon e Number [facility] [address] [place] [address] [phone] [facility] [address] [place] [address], [place] [phone] INR (11/05/2018 4:35 PM [facility]) P athologist Signature INR 1.03 0.86 - 1.14 11/05/2018 [place] 5:33 PM [facility] Specimen Anatomical Collection Method Collection Time Receive d Time (Source) Location / / Volume Laterality Blood specimen 11/05/2018 4:35 PM 019 5:17 (specimen) [facility] PM [facility] Bessy Mccray MD LAB - BLOOD ORDERABLES Performing Organization Address City/State/ZIP Code Phon e Number [facility] [address] [place] [phone] [facility] [address] [place] [address], [place] [phone] Lactic acid whole blood (11/05/2018 4:35 PM [facility]) P athologist Signature Lactic Acid 1.0 0.7 - 2.0 11/05/2018 [place] mmol/L 5:[address] [facility] Specimen Anatomical Collection Method Collection Time Receive d Time (Source) Location / / Volume Laterality Blood specimen 11/05/2018 4:35 PM 019 5:18 (specimen) [facility] PM [facility] Bessy Mccray MD LAB - BLOOD ORDERABLES Performing Organization Address City/State/ZIP Code Phon e Number M [facility] [address] [place] [address] [phone] [facility] [address] [place] [address], [place] [phone] (ABNORMAL) Basic metabolic panel (11/05/2018 4:35 PM [facility]) Analysis Performed At Patho logist Time Signature Sodium 143 133 - 144 11/05/2018 [facility] mmol/L 5:38 PM [facility] Potassium 4.3 3.4 - 5.3 11/05/2018 [facility] mmol/L 5:38 PM [facility] Chloride 113 (H) 94 - 109 11/05/2018 [facility] mmol/L 5:38 PM [facility] Carbon Dioxide 22 20 - 32 11/05/2018 [facility] mmol/L 5:43 PM [facility] Anion Gap 8 3 - 14 11/05/2018 [facility] mmol/L 5:43 PM [facility] Glucose 121 (H) 70 - 99 11/05/2018 [facility] mg/dL 5:43 PM [facility] Urea Nitrogen 24 7 - 30 11/05/2018 REPL[facility]ED BY [facility] mg/dL 5:43 PM [facility] Creatinine 1.30 (H) 0.66 - 11/05/2018 [facility] 1.25 mg/dL 5:43 PM [facility] GFR Estimate 53 (L) >60 11/05/2018 [place] mL/min/{1. 5:43 PM [facility] 73_m2} [facility]OSPITAL Comment: Non GFR Calc Starting 10/05/2018, serum creatinine ba sed estimated GFR (eGFR) will be calculated using the Chronic Kidney Dise [facility] Epidemiology Collaboration (CKD-EPI) equation. GFR Estimate If 61 >60 mL/min/{1.73_m2} 11/05/2018 5: [address] [facility] Comment: GFR Calc Starting 10/05/2018, serum creatinine ba sed estimated GFR (eGFR) will be calculated using the Chronic Kidney Dise [facility] Epidemiology Collaboration (CKD-EPI) equation. Calcium 8.6 8.5 - 10.1 mg/dL 11/05/2018 5:43 PM [facility] Specimen Anatomical Collection Method Collection Time Receive d Time (Source) Location / / Volume Laterality Blood specimen 11/05/2018 4:35 PM 019 5:17 (specimen) [facility] PM [facility] Bessy Mccray MD LAB - BLOOD ORDERABLES Performing Organization Address City/State/ZIP Code Phon e Number M [facility] [address] [place] [address] [facility] [address] [place] [address], U [phone] IR Thoracic Endovascular Stent Graft (11/05/2018 12:09 PM [facility]) Anatomical Region Laterality Modality Chest Radio Fluoroscopy Specimen (Source) Anatomical Location Collection Method / Collectio n Time Received Time / Laterality Volume Impressions 11/06/2018 3:33 PM [facility] IMPRESSION: Successful deployment in 2 components for [...] KANNAN MORSE MD Narrative 11/06/2018 3:33 PM [facility] INTERVENTIONAL RADIOLOGY THORACIC ENDOVASCULAR STENT GRAFT ??11/05/2018 [...] Plan is for endovascular repair with [employer] Navion stent graft system. TECHNIQUE: Please [...] tion. Over a series of maneuvers, 6 Macedonian vascular sheath was placed. From left groin [...] tion. Over a series of maneuvers, 6 Macedonian vascular sheath was placed. From left groin [...] Drain Placement w Fluoro (11/05/2018 9:10 AM [facility]) Anatomical Region Laterality Modality Spine Radio Fluoroscopy Specimen (Source) Anatomical Location Collection Method / Collectio n Time Received Time / Laterality Volume Narrative 11/05/2018 9:19 AM [facility] RADIOLOGY INTERVENTIONAL NEURORADIOLOGY PROCEDURAL NOTE FLUOROSCOPICALLY [...] codes included for physician referen ce only: 76206/23461 MISSAEL GARCIA MD Procedure Note Missael Garcia [...] codes included for physician referen ce only: 64601/14699 MISSAEL GARCIA MD Butch Brown MD IMG IR ORDERABLES EKG 12-lead, tracing only (11/05/2018 6:58 AM [facility]) [facility] gist Method Time Signature Interpretation ECG Click View RADIOLOGY Image link RESULTS to view waveform and result Specimen (Source) Anatomical Collection Method Collection Time Re ceived Time Location / / Volume Laterality 11/05/2018 6:58 AM [facility] Juan Lewis MD ECG ORDERABLES Performing Organization Address City/State/ZIP Code Phon e Number RADIOLOGY RESULTS Potassium (11/05/2018 6:55 AM [facility]) P athologist Signature Potassium 4.3 3.4 - 5.3 11/05/2018 [place] mmol/L 7:15 AM [facility] Specimen Anatomical Collection Method Collection Time Receive d Time (Source) Location / / Volume Laterality Blood specimen 11/05/2018 6:55 AM 019 6:56 (specimen) [facility] AM [facility] Zakia Tobin MD LAB - BLOOD ORDERABLES Performing Organization Address City/State/ZIP Code Phon e Number M [facility] [address] [place] [address] [facility] [address] [place] [address], [place] [phone] Lipid panel (11/05/2018 6:55 AM [facility]) Analysis Performed At Patho logist Time Signature Cholesterol 128 <200 mg/dL 11/05/2018 [facility] 7:20 AM [facility] Triglycerides 125 <150 mg/dL 11/05/2018 [facility] 7:21 AM [facility] HDL Cholesterol 59 >39 mg/dL 11/05/2018 [facility] 7:23 AM [facility] LDL Cholesterol 44 <100 mg/dL 11/05/2018 [facility] Calculated 7:23 AM [facility] Comment: Desirable: <100 mg/dl Non HDL Cholesterol 69 <130 mg/dL 11/05/2018 7:23 AM [facility] Specimen Anatomical Collection Method Collection Time Receive d Time (Source) Location / / Volume Laterality Blood specimen 11/05/2018 6:55 AM 019 6:56 (specimen) [facility] AM [facility]ER Juan Lewis MD LAB - BLOOD ORDERABLES Performing Organization Address City/State/ZIP Code Phon e Number M [facility] [address] [place] [address] [facility] [address] [place] [address], [place] [phone] Hemoglobin A1c (11/05/2018 6:55 AM [facility]) athologist Signature Hemoglobin A1C 5.2 0 - 5.6 % 11/05/2018 [place] 7:30 AM [facility] Comment: Normal <5.7% Prediabetes 5.7-6.4% ??Diab etes 6.5% or higher - adopted from ADA consensus guidelines. Specimen Anatomical Collection Method Collection Time Receive d Time (Source) Location / / Volume Laterality Blood specimen 11/05/2018 6:55 AM 019 6:56 (specimen) [facility] AM [facility] Juan Lewis MD LAB - BLOOD ORDERABLES Performing Organization Address City/State/ZIP Code Phon e Number M [facility] [address] [place] [phone] [facility] [address] [place] [address], [place] [phone] (ABNORMAL) Creatinine (11/05/2018 6:55 AM [facility]) athologist Signature Creatinine 1.52 (H) 0.66 - 11/05/2018 [place] 1.25 mg/dL 7:20 AM [facility] GFR Estimate 44 (L) >60 11/05/2018 [place] mL/min/{1. 7:20 AM [facility] 73_m2} [facility] Comment: Non GFR Calc Starting 10/05/2018, serum creatinine ba sed estimated GFR (eGFR) will be calculated using the Chronic Kidney Dise [facility] Epidemiology Collaboration (CKD-EPI) equation. GFR Estimate If 51 (L) >60 mL/min/{1.73_m2} 11/05/2018 7: 20 AM [place] Black [facility] Comment: GFR Calc Starting 10/05/2018, serum creatinine ba sed estimated GFR (eGFR) will be calculated using the Chronic Kidney Dise [facility] Epidemiology Collaboration (CKD-EPI) equation. Specimen Anatomical Collection Method Collection Time Receive d Time (Source) Location / / Volume Laterality Blood specimen 11/05/2018 6:55 AM 019 6:56 (specimen) [facility] AM [facility] Juan Lewis MD LAB - BLOOD ORDERABLES Performing Organization Address City/State/ZIP Code Phon e Number M [facility] [address] [phone] [facility] [address] [address], [facility] [phone] XR Chest Port 1 View (11/05/2018 6:40 AM [facility]) Anatomical Region Laterality Modality Chest Digital Radiography Specimen (Source) Anatomical Location Collection Method / Collectio n Time Received Time / Laterality Volume Impressions 11/05/2018 6:58 AM [facility] IMPRESSION: No acute abnormality. TORI SANTIZO MD Narrative 11/05/2018 6:58 AM [facility] XR CHEST PORTABLE 1 VIEW ?? 11/05/2018 [...] CARDIAC - HIM SCAN (09/24/2018 12:00 AM [facility]) Specimen (Source) Anatomical Location Collection Method / [...] tablet 975 mg Given 11/08/2018 11:04 PM [facility] 975 mg 975 mg, Oral, EVERY 6 HOURS PRN, mild pain, fever, Starting on Thu11/05/18 at 1827, Maximum acetaminophen dose from all sources = 75 mg/kg/day not to exceed 4 grams/day. Given 11/08/2018 12:37 PM [facility] 975 mg Given 11/07/2018 11:03 AM [facility] 975 mg alum & mag hydroxide-simethicone (MYLANTA Given 11/08/2018 2:48 AM [facility] 30 mLs ES/MAALOX ES) suspension 30 mL 30 mL, Oral, EVERY 4 HOURS PRN, indigestion, Starting on Thu11/05/18 at 1510, Shake well. apixaban ANTICOAGULANT (ELIQUIS) tablet 2.5 Given 10/20 12:04 PM [facility] 2.5 mg mg 2.5 mg, Oral, 2 TIMES DAILY, First dose on Thu11/09/18 at 1115 atorvastatin (LIPITOR) tablet 40 mg Given 11/08/2018 8:20 PM [facility] 40 mg 40 mg, Oral, EVERY EVENING, First dose on Thu11/05/18 at 2000 Given 11/07/2018 7:49 PM [facility] 40 mg Given 11/06/2018 9:16 PM [facility] 40 mg calcium carbonate (TUMS) chewable tablet Given 11/07/2018 10 :34 PM [facility] 1,000 mg 1,000 mg 1,000 mg, Oral, EVERY 2 HOURS PRN, heartburn, Starting on Thu11/06/18 at 0408, Do not give if calcium level greater than 10 mg/dL. Given 11/07/2018 12:05 AM [facility] 1,000 mg Given 11/06/2018 4:50 AM [facility] 1,000 mg clindamycin (CLEOCIN) infusion 900 New Bag 11/06/2018 2:05 AM [facility] 900 mg 50 mL/hr mg Routine, 900 mg, Intravenous, EVERY 8 HOURS, First dose on Thu11/05/18 at 1800, For 2 doses, Indications: Perioperative Pharmacoprophylaxis, Post-procedure New Bag 11/05/2018 6:08 PM [facility] 900 mg 50 mL/hr cyclobenzaprine (FLEXERIL) tablet 5-10 m g Given 11/08/2018 3:58 AM [facility] 10 mg 5-10 mg, Oral, 3 TIMES DAILY PRN, muscle spasms, Starting on Thu11/07/18 at 1153 Given 11/07/2018 2:26 PM [facility] 5 mg dextrose 5% and 0.45% NaCl infusion New Bag 11/08/2018 6:44 PM [facility] 75 mL/hr at 75 mL/hr, Intravenous, CONTINUOUS, Starting on Thu11/07/18 at 1200, Until Thu11/09/18 at 0731 Restarted 11/08/2018 4:21 PM [facility] 75 mL/hr New Bag 11/08/2018 7:35 AM [facility] 100 mL/hr diphenhydrAMINE (BENADRYL) injection 12. 5 mg 12.5 mg, Intravenous, EVERY 6 HOURS PRN, itching, Only give if patient unable to take PO., Starting on Thu11/05/18 at 151 0, Caution to be used when administering multiple SANDFILL OPERATOR depressing meds within a sh ort time frame. For ordered IV doses 1-50 mg, give IV Push undiluted. Give each 25 mg over a minimum of 1 minute. Extend in non-emergency diphenhydrAMINE (BENADRYL) solution 12.5 mg 12.5 mg, Oral, EVERY 6 HOURS PRN, itchin g, Starting on Thu11/05/18 at 1510, Caution to be used when administering multiple SANDFILL OPERATOR depressing meds within a short time frame. fentaNYL (PF) (SUBLIMAZE) 100 MCG/2ML in jection Starting on Thu11/05/18 at 0841, For 1 d ose, Gwen Rivas : cabinet override For ordered IV doses 1-100 mcg give IV Push undiluted over a minimum of 3-5 minutes. fentaNYL (PF) (SUBLIMAZE) injection 100 mcg Given 11/05/2018 7:45 AM [facility] 50 mcg 100 mcg, Intravenous, ONCE, Administer over 3-5 Minutes, On Thu11/05/18 at 0745, For 1 dose, For ordered IV doses 1-100 mcg give IV Push undiluted over a minimum of 3-5 minutes., Pre-procedure Given 11/05/2018 7:31 AM [facility] 50 mcg fentaNYL (PF) (SUBLIMAZE) injection 25-5 0 mcg Given 11/05/2018 8:48 AM [facility] 50 mcg 25-50 mcg, Intravenous, EVERY 5 [...] 50 m cg Given 11/05/2018 1:33 PM [facility] 50 mcg 50 mcg, Intravenous, EVERY 5 MIN PRN, moderate to severe pain, Administer over 3-5 Minutes, Starting on Thu11/05/18 at 1333, For ordered IV doses 1-100 mcg give IV Push undiluted over a minimum of 3-5 minutes., PACU hydrALAZINE (APRESOLINE) injection 10-20 mg Given 11/08/2018 7:03 PM [facility] 10 mg 10-20 mg, Intravenous, EVERY 1 [...] over 1 minute. Given 11/08/2018 11:51 AM [facility] 20 mg Given 11/08/2018 3:36 AM [facility] 20 mg labetalol (NORMODYNE/TRANDATE) 5 MG/ML i njection Starting on Thu11/05/18 at 1521, For 1 d [employer] thomas Doreen : cabinet override For ordered doses up to 80 mg, give IV Push undiluted. Give each 20 mg over 2 minutes. labetalol (NORMODYNE/TRANDATE) injection 10 mg Given 11/05/2018 3:43 PM [facility] 10 mg 10 mg, Intravenous, EVERY 10 [...] 2 minutes., Post-procedure Given 11/05/2018 3:25 PM [facility] 10 mg labetalol (NORMODYNE/TRANDATE) injection 10 mg Given 11/05/2018 1:45 PM [facility] 10 mg 10 mg, Intravenous, ONCE, Administer over 2-8 Minutes, On Thu11/05/18 at 1400, For 1 dose, For ordered doses up to 80 mg, give IV Push undiluted. Give each 20 mg over 2 minutes., PACU labetalol (NORMODYNE/TRANDATE) injection 10-20 Given 0 11/08/2018 3:03 AM [facility] 10 mg mg 10-20 mg, Intravenous, EVERY [...] over 2 minutes. Given 11/08/2018 2:33 AM [facility] 20 mg Given 11/07/2018 10:35 PM [facility] 10 mg labetalol (NORMODYNE/TRANDATE) injection 20 Given 11/05/2018 12:37 PM [facility] 10 mg mg 20 mg, Intravenous, ONCE, Administer over 2-8 Minutes, On Thu11/05/18 at 1315, For 1 dose, For ordered doses up to 80 mg, give IV Push undiluted. Give each 20 mg over 2 minutes., Pre-procedure labetalol (NORMODYNE/TRANDATE) injection 5 mg Given 11/05/2018 1:13 PM [facility] 5 mg 5 mg, Intravenous, ONCE, Administer over 2-8 Minutes, On Thu11/05/18 at 1315, For 1 dose, For ordered doses up to 80 mg, give IV Push undiluted. Give each 20 mg over 2 minutes., PACU lactated ringers infusion New Bag 11/05/2018 6:52 AM [facility] 25 mL/hr at 25 mL/hr, Intravenous, CONTINUOUS, IF patient NOT on dialysis., Pre-procedure, Starting on Thu11/05/18 at 0645, Until Thu11/05/18 at 0836 lidocaine 1 % 1 mL Given 11/05/2018 6:53 AM [facility] 0.3 mLs 1 mL, Other, EVERY 1 [...] 2 5 mg Given 11/08/2018 8:22 AM [facility] 25 mg 25 mg, Oral, 2 TIMES DAILY, First dose (after last modification) on Thu11/05/18 at 1615 Given 11/07/2018 7:49 PM [facility] 25 mg Given 11/07/2018 11:14 AM [facility] 25 mg metoprolol tartrate (LOPRESSOR) tablet 5 0 mg Given 11/09/2018 8:28 AM [facility] 50 mg 50 mg, Oral, 2 TIMES DAILY, First dose on Thu11/08/18 at 2100, Hold for SBP < 90, HR < 50 Given 11/08/2018 8:20 PM [facility] 50 mg midazolam (VERSED) 1 MG/ML injection Starting on Thu11/05/18 at 0841, For 1 d Rob thomas Callie : cabinet override For ordered IV doses 0.1-2.5 mg give IV Push slowly titrat ed over a minimum of 2 minutes. Dilute each 1mg in 4mL of NS. midazolam (VERSED) injection 0.5-1 mg Given 11/05/2018 8:48 AM [facility] 1 mg 0.5-1 mg, Intravenous, Administer over [...] injection 4 mg Given 11/05/2018 7:53 AM [facility] 1 mg 4 mg, Intravenous, Administer over 2 Minutes, EVERY 4 MIN PRN, anxiety, Starting on Thu11/05/18 at 0732, For ordered IV doses 0.1-2.5 mg give IV Push slowly titrated over a minimum of 2 minutes. Dilute each 1mg in 4mL of NS., Pre-procedure Given 11/05/2018 7:49 AM [facility] 1 mg Given 11/05/2018 7:38 AM [facility] 1 mg omeprazole (priLOSEC) CR capsule 20 mg Given 11/09/2018 6:33 AM [facility] 20 mg 20 mg, Oral, EVERY MORNING BEFORE BREAKFAST, First dose on 11/07/18 at 2345 Given 11/08/2018 8:22 AM [facility] 20 mg Given 11/07/2018 11:48 PM [facility] 20 mg ondansetron (ZOFRAN) injection 4 mg Given 11/07/2018 11:48 PM [facility] 4 mg 4 mg, Intravenous, EVERY 6 [...] half-tab 2.5-5 mg Given 11/08/2018 12:37 PM [facility] 5 mg 2.5-5 mg, Oral, EVERY 4 HOURS PRN, moderate to severe pain, Starting on Thu11/05/18 at 1724 Given 11/08/2018 6:19 AM [facility] 5 mg Given 11/07/2018 7:49 PM [facility] 5 mg phenylephrine Rate/Dose Change 11/06/2018 6:45 0.3 mcg/kg/min 7.6 mL/ hr (OSIEL-SYNEPHRINE) 50 mg PM [facility]ER in sodium chloride 0.9 % 250 mL [...] goals. Vesicant. Rate/Dose Change 11/06/2018 6:15 PM [facility] 0.5 mcg/kg/min 12.6 mL/hr Rate/Dose Change 11/06/2018 5:34 PM [facility] 0.7 mcg/kg/min 17.7 mL/hr sennosides (SENOKOT) tablet 8.6 mg Given 11/08/2018 3:36 AM [facility] 8.6 mg 8.6 mg, Oral, 2 TIMES DAILY PRN, constipation, Starting on Thu11/08/18 at 0250 sodium chloride (PF) 0.9% PF flush 3 mL Given 11/07/2018 4:12 PM [facility]ER 3 mLs 3 mL, Intracatheter, EVERY 8 HOURS, First dose on Thu11/05/18 at 1515, And Q1H PRN, to lock peripheral IV dormant line. Given 11/07/2018 11:34 AM [facility]ER 3 mLs Given 11/07/2018 12:06 AM [facility]RIER 10 mLs sodium chloride 0.9% infusion New Bag 11/06/2018 7:48 PM [facility]ER 100 mL/hr at 100 mL/hr, Intravenous, CONTINUOUS, For patient on renal dialysis. Saline lock after 1 liter if taking PO fluids., Post-procedure, Starting on Thu11/05/18 at 1515, Until Thu11/08/18 at 1245 New Bag 11/06/2018 12:08 PM [facility] 100 mL/hr New Bag 11/06/2018 2:33 AM [facility] DRIER 100 mL/hr terazosin (HYTRIN) capsule 5 mg Given 11/08/2018 9:21 PM [facility]ER 5 mg 5 mg, Oral, AT BEDTIME, First dose on Thu11/05/18 at 2200 documented in this encounter Active and Recently Administered Medications Times are shown in ROTARY DRIER. Scheduled Medication Order 11/07/2018 11/08/2018 11/09/2018 apixaban [...] 2221 (Not Given - Pro vider: Kristy Castñaeda RN - Reason: Patient/family refused - Comment: [...] mg 0456 (Given - Pr ovider: Ramiro Lozaon RN)1103 (Given - Provider: Danette Peck RN) [...] Caution to be used when administering multiple SANDFILL OPERATOR depressing meds within a short time frame. For ordered IV doses 1-50 m g, give IV Push undiluted. Give each 25mg over a minimum of 1 minute. Extend in non-emergency diphenhydrAMINE (BENADRYL) solution 12.5 mg(Linked Group 1) 12.5 mg, Oral, EVERY 6 HOURS PRN, itchin g, Starting 11/05/18 at 1510, Caution to be used when administering multiple SANDFILL OPERATOR depressing meds within a short time frame. [...]
Caution to be used when administering multiple SANDFILL OPERATOR depressing meds within a short time frame.
Or diphenhydrAMINE (BENADRYL) injection 12.5 mgJump to med 12.5 mg, Intravenous, EVERY 6 HOURS PRN, itching, Only give if patient unable to take PO., Starting Thu11/05/18 at 1510
Caution to be used when administering multiple SANDFILL OPERATOR depressing meds within a short time frame. [...] documented as of this encounter Care Teams Plateman Relationship Specialty Start Date End Date [facility] P[facility] - General 05/12/17 [address] [place] [address] documented as of this encounter
--- OUTSIDE RECORDS SUMMARY | 2022-06-05 13:47 | XMS_ITS | Encounter Summary ---
:1940 Author Organization [place] Address [facility] [facility] [place] [address] Care Team Providers Name Role Phone Clinic, [facility] Primary Care Provider [phone] Encounter Details Date Type Department Care Team Description 11/05/2018 Anesthesia Event [facility] Bart Feliciano [place] MD Interventional [facility] Radiology [address] [place] [address] [place] [id number] [phone] Anesthesia Record Procedure Summary Procedure Name Responsible [...] documented as of this encounter Care Teams Mix House Operator Relationship Specialty Start Date End Date [facility], [facility] PCP - General 05/12/[address] [place] [id number] documented as of this encounter
--- OUTSIDE RECORDS SUMMARY | 2022-06-05 13:47 | XMS_ITS | Encounter Summary ---
:1940 Author Organization [place] Address [address] [place] [id number] Care Team Providers Name Role Phone [facility] Primary Care Provider [phone] Encounter Details Date Type Department Care Team [...] as of this encounter Care Teams Assistant Fitness Manager Relationship Specialty Start Date End Date [facility] PCP - General 05/12/[address] [place] [id number] documented as of this encounter
--- OUTSIDE RECORDS SUMMARY | 2022-06-05 13:47 | XMS_ITS | Encounter Summary ---
:1940 Author Organization [place] Address [address] [facility]. 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 Periop Services Procedures ENDOVASCULAR REPAIR ANEURYSM THORACIC AORTIC [address], [address] [place] [address] Phone: Referral ID Status Reason Start Date Expiration Date Visits Requ ested Visits Authorized [id number] 1 1 Encounter Details Date Type Department Care Team Description 11/05/2018 Surgery [facility] Juan Lewis THORACIC ENDOVASCULAR [place] PeriOP MD Elijah ANEURYSM REPAIR WITH Services [address] [employer] [address], [address] [place] [address] [place] [address] [phone] Surgery Details Date/Time Status Location OR Service [...] Comments Blood Pressure 159/88 11/05/2018 9:00 AM VOLLEYBALL REFEREE Pulse 57 11/05/2018 9:00 AM [facility]OLLEYBALL REFEREE Temperature 36.7 ??C (98.1 ??F) 11/05/2018 6:27 AM [facility]LEYBALL REFEREE Respiratory Rate 21 11/05/2018 9:05 AM [facility]BALL REFEREE Oxygen Saturation 100% 11/05/2018 9:05 AM VOLLEYBALL REFEREE Inhaled Oxygen Concentration - - Weight 84.3 kg (185 lb 14.4 oz) 11/05/2018 6:27 AM VOLLEYBALL REFEREE Height 167.6 cm (5' 6) 11/05/2018 6:27 AM VOLLEYBALL REFEREE Body Mass Index 31.06 11/05/2018 6:27 AM VOLLEYBALL REFEREE documented in this encounter Discharge Summaries Bessy Mccray MD - 11/09/2018 10:56 AM CST Physician Discharge Summary Patient ID: Speedy Hendricks [id number] 78 year old 1940 Admit date: 11/05/2018 [...] an oral diet. He was discharged to [facility] on POD[facility]4 in stable condition. Consults: [...] to. Signed: Bessy Mccray 11/09/2018 10:56 AM EYBALL REFEREE Associated attestation - Juan Lewis MD - 11/11/2018 3:10 PM VOLLEYBALL REFEREE Physician Attestation I, Juan Lewis, have reviewed and discussed with the advanced practice provider their discharge plan for Sepedy Hendricks. I did not participate in a shared visit by interviewing or examining the patient and this should be billed as an advanced practice provider only discharge. Juan Lewis Date of Service (when I saw the patient): I did not personally see this patient today. documented in this encounter Discharge Instructions Discharge InstructionsKiki Traylor RN - 11/09/2018 11:47 AM CST EYBALL REFEREE AttachmentsThe following attachments cannot be sent through Care Everywhere.(S) TREATING A THORACIC AORTIC ANEURYSM (TAA): ENDOVASCULAR GRAFT (TAMAZIGHT) documented in this encounter Medications at Time [...] home with family via car.All questions answered. EYBALL REFEREE Gurwinder Godoy MD - 11/09/2018 12:02 PM CST [facility] Vascular Medicine Progress Note Date of Service (when I saw the patient): 11/09/2018 Physician Supervisory Attestation: I have reviewed and discussed with the physician behavioral health assistant their history, physical and plan and [...] Discussed with vascular surgery service. Gurwinder Godoy MD,[facility] Vascular Medicine service 11/09/2018 Assessment & Plan [...] Rate: 93 Resp: 22 SpO2: 93 % O0Ieaixj: None (Room air) Vitals: 11/06/18 0211 11/07/18 [...] = values in this interval not displayed. EYBALL REFEREE Bessy Mccray MD - 11/09/2018 7:36 AM [...] Bessy Martinez MD Vascular Surgery Fellow Pager EYBALL REFEREE Associated attestation - Butch Brown MD - 11/16/2018 9:50 AM VOLLEYBALL REFEREE I was involved with the assessment and plan, and I agree with the findings and plan of care as documented in the fellow's note. MD Wilfredo Castillo Carley, RN - 11/08/2018 6:35 PM CST Pt arrived to station 33 @ 1820 EYBALL REFEREE Aura Crooks RN - 11/08/2018 5:05 PM CST Pt had drained removed this AM. Draining moderate amount- MDA aware. SR. BP wnl- gave hydralazine x1prn. Chapman to be removed prior to transfer. Lines out and hemostasis achieved. Up to chair- tolerated well, SBA. Frequent neuros- wnl. Will call report to [facility] and will transfer at . EYBALL REFEREE Dimas Chapman MD - 11/08/2018 12:41 PM [...] -- AST 19 -- -- -- -- EYBALL REFEREE Bessy Mccray MD - 11/08/2018 8:18 AM [...] Bessy Martinez MD Vascular Surgery Fellow Pager EYBALL REFEREE Associated attestation - Butch Brown MD - 11/16/2018 3:00 PM VOLLEYBALL REFEREE I was involved with the assessment and [...] please contact primary service first. Kaleb Rodriguez EYBALL REFEREE Kristy Castañeda RN - 11/08/2018 6:50 AM CST [address] Tobin at bedside and removed lumbar drain. Pt tolerated well. Neuro checks q 30 min for the next 6 hours. Dry gaze and Tegaderm to site. Kristy Gamez RN EYBALL REFEREE Zakia Tboin MD - 11/08/2018 6:47 AM CST Anesthesiology [...] drain tubing following [place]cl[place] [id number] down from 100s yesterday. At this time, [...] Nunes MD - 11/07/2018 11:55 AM CST Hand Coper: S: Mild groin pain this morning, but [...] Dr. Staley of vascular medicine at bedside. Hand Coper service will sign off for now. Please re-consult as needed. EYBALL REFEREE Gurwinder Godoy MD - 11/07/2018 9:09 AM [...] If any change in neuro status contact [facility] surgery first and consider neurocritical care [...] good Reviewed last night events, discussed with Hand Coper and ICU nursing staff this am. Patients [...] . Avoid nephrotoxic meds. ?? Gurwinder Godoy MD,[facility] Vascular Medicine Interval History Reviewed last night [...] 7.8* 8.6 -- GLC 115* 121* -- EYBALL REFEREE Danette Peck RN - 11/07/2018 8:50 AM [...] to keep SBP <160 and MAP >80. EYBALL REFEREE Gurwinder Godoy MD - 11/06/2018 12:00 PM [...] . Avoid nephrotoxic meds. ?? Gurwinder Godoy MD,[facility] Vascular Medicine Interval History Reviewed last night [...] 7.8* 8.6 -- GLC 115* 121* -- EYBALL REFEREE Millie Handley APRN EMBALMER APPRENTICE - 11/06/2018 11:55 AM CST Critical Care [...] Total critical care time today 35 min. EYBALL REFEREE Associated attestation - Bishop Tran MD - 11/12/2018 10:50 AM VOLLEYBALL REFEREE Physician Attestation I, Bishop Tran, have reviewed [...] sufficient urine. Continue plan as documented in GOLF COURSE STARTER note. The patient does not seem to [...] for the 11/05/2018 admission is complete. See [facility] admission navigator for prior to admission medications Medication history source reliability:Good Medication history interview source(s):Patient Medication history resources (including written lists, pill bottles, clinic record):Patient mailed in his medication list prior to surgery Primary pharmacy.[facility] Additional medication history information not noted on [employer] med list :None Time spent in this [...] Bedtime 11/04/2018 at 2200 Yes Reported, Patient EYBALL REFEREE documented in this encounter Procedure Notes Missael [...] management per anethesia/vasc surg Missael Garcia MD [phone] EYBALL REFEREE documented in this encounter Consult Notes Kaleb Rodriguez NP - 11/05/2018 5:14 PM CSTAssociated Order(s): CELL REPAIRER IP CONSULT [facility] Consult [...] IR Lumbar Drain Placement w Fluoro Narrative [facility] RADIOLOGY INTERVENTIONAL NEURORADIOLOGY PROCEDURAL NOTE FLUOROSCOPICALLY [...] CPT codes included for physician reference only: 02213/95620 MISSAEL GARCIA MD Glucose by meter Result Value Ref Range Glucose 124 (H) 70 - 99 mg/dL EYBALL REFEREE Associated attestation - Olive Bello MD - 11/05/2018 10:58 PM VOLLEYBALL REFEREE ICU STAFF: I have discussed Mr. Hendricks's [...] management per vascular surgery. Olive Bello MD #[id number] 11/05/18 Bill as Advanced Practice Provider only. Gurwinder Godoy MD - 11/05/2018 1:40 PM CST [facility] Vascular Medicine Consultation Date of Admission: 11/05/2018 Date of Consult (When I saw the patient): 11/05/18 Physician Supervisory Attestation: I have reviewed and discussed with the physician behavioral health assistant their history, physical and plan and [...] consult Copy to Dr. Debbie Godoy MD ,[facility] Vascular Medicine 11/05/2018 Assessment & Plan 1. [...] Labs Lab Test 11/05/18 0655 A1C 5.2 EYBALL REFEREE documented in this encounter Nursing Notes Isis Rivera, JOSE - 11/05/2018 8:40 AM CST Noted swelling left ankle EYBALL REFEREE documented in this encounter Miscellaneous Notes Plan [...] sites soft, bruised, CMS intact. Voiding okay. EYBALL REFEREE Plan of Care - Misty Villalobos RN - 11/08/2018 7:10 PM CST A/O x4. AVSS on RA. Tele NSR. Hydralazine given x1. Up SBA. Neuros intact. CMS intact. Groin sites, steri strips. Back site, moist drainage. Pulses, palpable, +2. Regular diet. Chapman removed at 1740, Due to void. EYBALL REFEREE Provider Notification - Aura Crooks RN - 11/08/2018 11:37 AM CST MD NOTIFICATION Person Notified: MDA Notified Person's Name: Yeimi Notification Date/Time: 11/08/2017 1135 Notification Interaction: Paged physician Purpose of Notification: Pt remains to have drainage from lumbar drain site. Orders Received: MDA to come assess pt. EYBALL REFEREE Plan of Care - Kristy Castañeda RN [...] access readiness for lumbar drain removal today. EYBALL REFEREE Provider Notification - Kristy Castañeda RN - [...] morning and assess pulling the drain. Kristy Castañdea RN EYBALL REFEREE Plan of Care - Aura Crooks RN - 11/07/2018 6:17 PM CST Neuro: LUCAS- strength 5/5. PERRL. Complains of soreness in groin/hips from moving them too much. Ptup in chair for a hour and tolerated well. Ok'd with Anesthesia MD, [place], to get up in chair forno more [...] some blood in tubing- Anesthesia MD aware. EYBALL REFEREE Plan of Care - Danette Peck RN - 11/07/2018 1:12 PM CST [id number] Continued with numbness bilateral top of thighs. [...] and dtr in room when Drs here. EYBALL REFEREE Provider Notification - Ramiro Lozano RN - 11/07/2018 6:17 AM CST Paged vascular surgery fellow Ashanti regarding new numbness to anterior thighs. CSF has been drained, will begin 500ml bolus unless directed otherwise. EYBALL REFEREE Plan of Care - Ramiro Lozano RN [...] clamped now. Daughter Raquel updated this morning. EYBALL REFEREE Provider Notification - Ramiro Lozano RN - 11/07/2018 5:[address] Wang regarding new leg pain and ICP increase. Opening drain for 15ml CSF over 1 hr per order. EYBALL REFEREE Plan of Care - Danette Peck RN - 11/06/2018 4:34 PM CST [id number] Neuro checks remain intact. Able to move [...] be retested for MRSA per infection control. EYBALL REFEREE Plan of Care - Ramiro Lozano RN [...] this shift. Daughter Raquel updated this morning. EYBALL REFEREE Plan of Care - Danette Peck RN - 11/05/2018 9:43 PM CST [id number] Neuro: intact. Able to move hips slightly [...] by physicians. Care transferred to next nurse. EYBALL REFEREE Provider Notification - Ramiro Lozano RN - 11/05/2018 7:46 PM CST Notified sales agent [employer] regarding failure to meet MAP goal of 80, new orders received. EYBALL REFEREE Op Note - Butch Brown MD - [...] descending aortic angiogram SURGEON: Butch Brown MD FLOAT PHLEBOTOMIST: Kannan Morse MD; Bessy Mas MD - [...] then able to upsized to a 6 Indonesian sheath over a Bentson wire.The patient was [...] femoral artery and upsized to an 11 Indonesian sheath. We then able to insert JULIANE [...] was removed and backfilled with a 16 Indonesian dry seal on the left.At this point [...] superficial femoral artery access which was 6 Indonesian sheath with an Angio-Seal closure device performed [...] the drain. Butch Brown MD Vascular Surgery EYBALL REFEREE Brief Op Note - Bessy Mccray MD [...] Palp DP bilaterally Complications: None. Implants: None. EYBALL REFEREE Associated attestation - Butch Brown MD - 11/05/2018 1:09 PM VOLLEYBALL REFEREE Butch Brown MD IR Note - Gwen Rivas RN - 11/05/2018 10:27 AM CST Interventional Radiology Intra-procedural Nursing Note Patient Name: Speedy Hendricks Today's Date: November 05, 2018 Start Time: 849 End of procedure time: 904 Procedure: lumbar drain placement Report given to: Dr. See, anesthesia Time pt departs: 0920 Aircraft Armorer: n/a Other Notes: patient tolerated well. Drain connected to closed drainage system flushed with preservative free NS per Dr. Haro. 1mg Versed and 50mcg Fentanyl IV given for additional sedation (had received 4mg Versed and 100mcg Fentanyl in pre-op prior to arrival). SR on monitor .VSS. Patient taken back to pre-op bay in stable condition. Gwen Rivas RNaccounting lecturer Radiology EYBALL REFEREE documented in this encounter Plan of Treatment Not on filedocumented as of this encounter Procedures Procedure Name Priority Date/Time Associated Comments Diagnosis CBC WITH PLATELETS & Routine 11/09/2018 7:41 AM Descending tho racic Results for this DIFFERENTIAL VOLLEYBALL REFEREE aortic aneurysm (H) procedur e are in the results section. COMPREHENSIVE Routine 11/09/2018 7:41 AM Descending thoracic R esults for this METABOLIC PANEL VOLLEYBALL REFEREE aortic aneurysm (H) proce dure are in the results section. MAGNESIUM Routine 11/08/2018 3:40 AM Descending thoracic Re sults for this VOLLEYBALL REFEREE aortic aneurysm (H) procedur e are in the results section. COMPREHENSIVE Routine 11/08/2018 3:40 AM Descending thoracic R esults for this METABOLIC PANEL VOLLEYBALL REFEREE aortic aneurysm (H) proce dure are in the results section. CBC WITH PLATELETS Routine 11/08/2018 3:40 AM Descending thora cic Results for this VOLLEYBALL REFEREE aortic aneurysm (H) procedur e are in the results section. CBC WITH PLATELETS STAT 11/07/2018 3:00 PM Descending thora cic Results for this VOLLEYBALL REFEREE aortic aneurysm (H) procedur e are in the results section. CBC WITH PLATELETS & Timed 11/07/2018 9:50 AM Descending tho racic Results for this DIFFERENTIAL VOLLEYBALL REFEREE aortic aneurysm (H) procedur e are in the results section. MAGNESIUM Routine 11/07/2018 9:50 AM Descending thoracic Re sults for this VOLLEYBALL REFEREE aortic aneurysm (H) procedur e are in the results section. BASIC METABOLIC PANEL Timed 11/07/2018 9:50 AM Descending th oracic Results for this VOLLEYBALL REFEREE aortic aneurysm (H) procedur e are in the results section. GLUCOSE BY METER Routine 11/07/2018 7:44 AM Descending thoraci c Results for this VOLLEYBALL REFEREE aortic aneurysm (H) procedur e are in the results section. GLUCOSE BY METER Routine 11/07/2018 3:49 AM Descending thoraci c Results for this VOLLEYBALL REFEREE aortic aneurysm (H) procedur e are in the results section. GLUCOSE BY METER Routine 11/07/2018 12:08 Descending thoracic Results for this AM VOLLEYBALL REFEREE aortic aneurysm (H) procedur e are in the results section. GLUCOSE BY METER Routine 11/06/2018 7:53 PM Descending thoraci c Results for this VOLLEYBALL REFEREE aortic aneurysm (H) procedur e are in the results section. GLUCOSE BY METER Routine 11/06/2018 11:02 Descending thoracic Results for this AM VOLLEYBALL REFEREE aortic aneurysm (H) procedur e are in the results section. GLUCOSE BY METER Routine 11/06/2018 7:38 AM Descending thoraci c Results for this VOLLEYBALL REFEREE aortic aneurysm (H) procedur e are in the results section. LACTIC ACID WHOLE Routine 11/06/2018 4:15 AM Descending thorac ic Results for this BLOOD VOLLEYBALL REFEREE aortic aneurysm (H) procedur e are in the results section. BASIC METABOLIC PANEL Routine 11/06/2018 4:15 AM Descending th oracic Results for this VOLLEYBALL REFEREE aortic aneurysm (H) procedur e are in the results section. CBC WITH PLATELETS Routine 11/06/2018 4:15 AM Descending thora cic Results for this VOLLEYBALL REFEREE aortic aneurysm (H) procedur e are in the results section. GLUCOSE BY METER Routine 11/06/2018 1:12 AM Descending thoraci c Results for this VOLLEYBALL REFEREE aortic aneurysm (H) procedur e are in the results section. MRSA MSSA PCR, NASAL STAT 11/05/2018 11:41 Descending thora cic Results for this SWAB PM VOLLEYBALL REFEREE aortic aneurysm (H) procedur e are in the results section. GLUCOSE BY METER Routine 11/05/2018 8:16 PM Descending thoraci c Results for this VOLLEYBALL REFEREE aortic aneurysm (H) procedur e are in the results section. GLUCOSE BY METER Routine 11/05/2018 4:39 PM Descending thoraci c Results for this VOLLEYBALL REFEREE aortic aneurysm (H) procedur e are in the results section. INR STAT 11/05/2018 4:35 PM Descending thoracic Re sults for this VOLLEYBALL REFEREE aortic aneurysm (H) procedur e are in the results section. LACTIC ACID WHOLE STAT 11/05/2018 4:35 PM Descending thorac ic Results for this BLOOD VOLLEYBALL REFEREE aortic aneurysm (H) procedur e are in the results section. BASIC METABOLIC PANEL STAT 11/05/2018 4:35 PM Descending th oracic Results for this VOLLEYBALL REFEREE aortic aneurysm (H) procedur e are in the results section. CBC WITH PLATELETS STAT 11/05/2018 4:35 PM Descending thora cic Results for this VOLLEYBALL REFEREE aortic aneurysm (H) procedur e are in the results section. IR THORACIC Routine 11/05/2018 12:09 Descending thoracic Resu lts for this ENDOVASCULAR STENT PM VOLLEYBALL REFEREE aortic aneurysm (H) pr ocedure are in GRAFT the results section. REPAIR, ANEURYSM, 11/05/2018 9:35 AM DESCENDING THORAC IC THORACIC AORTIC, VOLLEYBALL REFEREE AORTIC ANEURYSM ENDOVASCULAR Special Needs BLOOD TRANSFUSION ISSUE (RAR E ANTIBODIES) PT WILL DO A TYPE AND CROSS ON 11/03 JALEEL 10/28 IR LUMBAR DRAIN Routine 11/05/2018 9:10 AM Result s for this PLACEMENT W FLUORO VOLLEYBALL REFEREE procedure are in the results section. EKG 12-LEAD, TRACING STAT 11/05/2018 6:58 AM R esults for this ONLY VOLLEYBALL REFEREE procedure are i n the results section. POTASSIUM STAT 11/05/2018 6:55 AM Descending thoracic Re sults for this VOLLEYBALL REFEREE aortic aneurysm (H) procedur e are in the results section. LIPID PROFILE STAT 11/05/2018 6:55 AM Descending thoracic R esults for this VOLLEYBALL REFEREE aortic aneurysm (H) procedur e are in the results section. HEMOGLOBIN A1C STAT 11/05/2018 6:55 AM Descending thoracic Results for this VOLLEYBALL REFEREE aortic aneurysm (H) procedur e are in the results section. CREATININE STAT 11/05/2018 6:55 AM Descending thoracic Re sults for this VOLLEYBALL REFEREE aortic aneurysm (H) procedur e are in the results section. XR CHEST PORT 1 VIEW STAT 11/05/2018 6:40 AM R esults for this VOLLEYBALL REFEREE procedure are i n the results section. EKG CARDIAC - HIM 09/24/2018 12:00 AM SCAN VOLLEYBALL REFEREE documented in this encounter Results (ABNORMAL) CBC with platelets differential (11/09/2018 7:41 AM VOLLEYBALL REFEREE) Component Value Ref Test Analysis Performed At [facility] gist Range Method Time Signature WBC 9.3 4.0 - 11/09/2018 [facility] 11.0 8:06 AM [facility] 10e9/L [facility] RBC Count 3.55 (L) 4.4 - 11/09/2018 [facility] 5.9 8:06 AM [facility] [address] [place] [address] Hemoglobin 11.3 (L) 13.3 - 11/09/2018 [facility] 17.7 8:06 AM [facility] Hematocrit 33.7 (L) 40.0 - 11/09/2018 [facility] 53.0 % 8:06 AM [facility] MCV 95 78 - 100 11/09/2018 [facility] fl 8:06 AM [facility] MCH 31.8 26.5 - 11/09/2018 [facility] 33.0 pg 8:06 AM [facility] MCHC 33.5 31.5 - 11/09/2018 [facility] 36.5 8:06 AM [facility] RDW 13.9 10.0 - 11/09/2018 [facility] 15.0 % 8:06 AM [facility] Platelet Count 83 (L) 150 - 11/09/2018 [facility] 450 8:[address] Diff Method Manual 11/09/2018 [facility] Differential 8:31 AM [facility] % Neutrophils 85.0 % 11/09/2018 [facility] 8:31 AM [facility] % Lymphocytes 6.0 % 11/09/2018 [facility] 8:31 AM [facility] % Monocytes 7.0 % 11/09/2018 [facility] 8:31 AM [facility] % Eosinophils 2.0 % 11/09/2018 [facility] 8:31 AM [facility] % Basophils 0.0 % 11/09/2018 [facility] 8:31 AM [facility] Absolute 7.9 1.6 - 11/09/2018 [facility] Neutrophil 8.3 8:[address] Absolute 0.6 (L) 0.8 - 11/09/2018 [facility] Lymphocytes 5.3 8:[address] Absolute 0.7 0.0 - 11/09/2018 [facility] Monocytes 1.3 8:[address] Absolute 0.2 0.0 - 11/09/2018 [facility] Eosinophils 0.7 8:[address] Absolute 0.0 0.0 - 11/09/2018 [facility] Basophils 0.2 8:[address] RBC Morphology Consistent with 11/09/2018 [facility] reported results 8:31 AM [facility] Platelet Automated count 11/09/2018 [facility] Estimate confirmed. 8:31 AM [facility] morphology is normal. Specimen Anatomical Collection Method Collection Time Receive d Time (Source) Location / / Volume Laterality Blood specimen 11/09/2018 7:41 AM 019 7:51 (specimen) VOLLEYBALL REFEREE AM VOLLEYBALL REFEREE Dimas Chapman MD LAB - BLOOD ORDERABLES Performing Organization Address City/State/ZIP Code Phon e Number [employer] [facility] [employer] [address] [place] [address] [facility] [address] [place] [address], [place] [phone] (ABNORMAL) Comprehensive metabolic panel (11/09/2018 7:41 AM VOLLEYBALL REFEREE) athologist Signature Sodium 144 133 - 144 11/09/2018 [facility] mmol/L 8:11 AM [facility] Potassium 4.0 3.4 - 5.3 11/09/2018 [facility] mmol/L 8:11 AM [facility] Chloride 113 (H) 94 - 109 11/09/2018 [facility] mmol/L 8:11 AM [facility] Carbon Dioxide 22 20 - 32 11/09/2018 [facility] mmol/L 8:17 AM [facility] Anion Gap 9 3 - 14 11/09/2018 [facility] mmol/L 8:17 AM [facility] Glucose 94 70 - 99 11/09/2018 [facility] mg/dL 8:17 AM [facility] Urea Nitrogen 21 7 - 30 11/09/2018 [facility] mg/dL 8:17 AM [facility] Creatinine 1.24 0.66 - 11/09/2018 [facility] 1.25 mg/dL 8:17 AM [facility] GFR Estimate 56 (L) >60 11/09/2018 [facility] mL/min/{1. 8:17 AM [facility] 73_m2} [facility]OSPITAL Comment: Non GFR Calc Starting 10/05/2018, serum creatinine ba sed estimated GFR (eGFR) will be calculated using the Chronic Kidney Dise ase Epidemiology Collaboration (CKD-EPI) equation. GFR Estimate If 65 >60 mL/min/{1.73_m2} 11/09/2018 8: 17 AM [facility] Comment: GFR Calc Starting 10/05/2018, serum creatinine ba sed estimated GFR (eGFR) will be calculated using the Chronic Kidney Dise ase Epidemiology Collaboration (CKD-EPI) equation. Calcium 8.4 (L) 8.5 - 10.1 11/09/2018 8:17 AM [facility] mg/dL [facility] Bilirubin Total 1.3 0.2 - 1.3 mg/dL 11/09/2018 8:19 AM [facility] Albumin 2.4 (L) 3.4 - 5.0 g/dL 11/09/2018 8:19 AM [facility] Protein Total 6.2 (L) 6.8 - 8.8 g/dL 11/09/2018 8:19 AM [facility] Alkaline Phosphatase 72 40 - 150 U/L 11/09/2018 8:19 AM [facility] ALT 17 0 - 70 U/L 11/09/2018 8:[address] [facility] AST 15 0 - 45 U/L 11/09/2018 8:[address] [facility] Specimen Anatomical Collection Method Collection Time Receive d Time (Source) Location / / Volume Laterality Blood specimen 11/09/2018 7:41 AM 019 7:51 (specimen) VOLLEYBALL REFEREE AM VOLLEYBALL REFEREE Dimas Chapman MD LAB - BLOOD ORDERABLES Performing Organization Address City/State/ZIP Code Phon e Number [facility] [address] [address] [facility] [address] [address], [place] [phone] Magnesium Level scheduled every Thu (11/08/2018 3:40 AM VOLLEYBALL REFEREE) P athologist Signature Magnesium 1.7 1.6 - 2.3 11/08/2018 [facility] mg/dL 4:06 AM [facility] Specimen Anatomical Collection Method Collection Time Receive d Time (Source) Location / / Volume Laterality Blood specimen 11/08/2018 3:40 AM 019 3:46 (specimen) VOLLEYBALL REFEREE AM VOLLEYBALL REFEREE Dimas Chapman MD LAB - BLOOD ORDERABLES Performing Organization Address City/State/ZIP Code Phon e Number M [employer] [address] [address] [phone] [facility] [address] [place] [address], [place] [phone] (ABNORMAL) Comprehensive metabolic panel (11/08/2018 3:40 AM [facility]) Analysis Performed At Patho logist Time Signature Sodium 142 133 - 144 11/08/2018 [facility] mmol/L 3:58 AM [facility] Potassium 4.2 3.4 - 5.3 11/08/2018 [facility] mmol/L 3:58 AM [facility] Chloride 111 (H) 94 - 109 11/08/2018 [facility] mmol/L 3:58 AM [facility] Carbon Dioxide 22 20 - 32 11/08/2018 [facility] mmol/L 4:04 AM [facility] Anion Gap 9 3 - 14 11/08/2018 [facility] mmol/L 4:04 AM [facility] Glucose 164 (H) 70 - 99 11/08/2018 [facility] mg/dL 4:04 AM [facility] Urea Nitrogen 20 7 - 30 11/08/2018 [facility] mg/dL 4:04 AM [facility] Creatinine 1.29 (H) 0.66 - 11/08/2018 [facility] 1.25 mg/dL 4:04 AM [facility] GFR Estimate 53 (L) >60 11/08/2018 [facility] mL/min/{1. 4:04 AM [facility] 73_m2} [facility] Comment: Non GFR Calc Starting 10/05/2018, serum creatinine ba sed estimated GFR (eGFR) will be calculated using the Chronic Kidney Dise [facility] Epidemiology Collaboration (CKD-EPI) equation. GFR Estimate If 62 >60 mL/min/{1.73_m2} 11/08/2018 4: 04 AM [facility] Comment: GFR Calc Starting 10/05/2018, serum creatinine ba sed estimated GFR (eGFR) will be calculated using the Chronic Kidney Dise [place] Epidemiology Collaboration (CKD-EPI) equation. Calcium 8.2 (L) 8.5 - 10.1 11/08/2018 4:04 AM [facility] mg/dL [facility] Bilirubin Total 1.1 0.2 - 1.3 mg/dL 11/08/2018 4:06 AM [facility] Albumin 2.6 (L) 3.4 - 5.0 g/dL 11/08/2018 4:06 AM [facility] Protein Total 6.0 (L) 6.8 - 8.8 g/dL 11/08/2018 4:06 AM [facility] Alkaline Phosphatase 62 40 - 150 U/L 11/08/2018 4:06 AM [facility] ALT 18 0 - 70 U/L 11/08/2018 4:[address] [facility] AST 19 0 - 45 U/L 11/08/2018 4:[address] [facility] Specimen Anatomical Collection Method Collection Time Receive d Time (Source) Location / / Volume Laterality Blood specimen 11/08/2018 3:40 AM 019 3:46 (specimen) [facility] AM [facility] Gurwinder Godoy MD LAB - BLOOD ORDERABLES Performing Organization Address City/State/ZIP Code Phon e Number M [employer] [address] [address] [phone] [facility] [address] [address], U [phone] (ABNORMAL) CBC (AM Draw) (11/08/2018 3:40 AM [facility]) Analysis Performed At Patho logist Time Signature WBC 11.2 (H) 4.0 - 11.0 11/08/2018 [facility] 10e9/L 3:50 AM [facility] RBC Count 3.62 (L) 4.4 - 5.9 11/08/2018 [facility] 10e12/L 3:50 AM [facility] Hemoglobin 11.6 (L) 13.3 - 11/08/2018 [facility] 17.7 g/dL 3:50 AM [facility] Hematocrit 34.5 (L) 40.0 - 11/08/2018 [facility] 53.0 % 3:50 AM [facility] MCV 95 78 - 100 11/08/2018 [facility] fl 3:50 AM [facility] MCH 32.0 26.5 - 11/08/2018 [facility] 33.0 pg 3:50 AM [facility] MCHC 33.6 31.5 - 11/08/2018 [facility] 36.5 g/dL 3:50 AM [facility] RDW 13.9 10.0 - 11/08/2018 [facility] 15.0 % 3:50 AM [facility] Platelet Count 82 (L) 150 - 450 11/08/2018 [facility] 10e9/L 3:50 AM [facility] Specimen Anatomical Collection Method Collection Time Receive d Time (Source) Location / / Volume Laterality Blood specimen 11/08/2018 3:40 AM 019 3:46 (specimen) [facility] REFEREE AM [facility] Gurwinder Godoy MD LAB - BLOOD ORDERABLES Performing Organization Address City/State/ZIP Code Phon e Number M [employer] [address] [address] [facility] [address] [address], [facility] [phone] (ABNORMAL) CBC with platelets (11/07/2018 3:00 PM [facility]) Analysis Performed At Patho logist Time Signature WBC 11.1 (H) 4.0 - 11.0 11/07/2018 [facility] 10e9/L 3:08 PM [facility] RBC Count 3.74 (L) 4.4 - 5.9 11/07/2018 [facility] 10e12/L 3:08 PM [facility] Hemoglobin 11.9 (L) 13.3 - 11/07/2018 [facility] 17.7 g/dL 3:08 PM [facility] Hematocrit 35.4 (L) 40.0 - 11/07/2018 [facility] 53.0 % 3:08 PM [facility] MCV 95 78 - 100 11/07/2018 [facility] fl 3:08 PM [facility] MCH 31.8 26.5 - 11/07/2018 [facility] 33.0 pg 3:08 PM [facility] MCHC 33.6 31.5 - 11/07/2018 [facility] 36.5 g/dL 3:08 PM [facility] RDW 14.1 10.0 - 11/07/2018 [facility] 15.0 % 3:08 PM [facility] Platelet Count 87 (L) 150 - 450 11/07/2018 [facility] 10e9/L 3:08 PM [facility] Specimen Anatomical Collection Method Collection Time Receive d Time (Source) Location / / Volume Laterality Blood specimen 11/07/2018 3:00 PM 019 3:05 (specimen) [facility] RE[facility] PM [facility] Bart Feliciano MD LAB - BLOOD ORDERABLES Performing Organization Address City/State/ZIP Code Phon e Number M [employer] [address] [place] [address] [facility] [address] [place] [address], [place] [phone] Magnesium (11/07/2018 9:50 AM [facility]) P athologist Signature Magnesium 1.6 1.6 - 2.3 11/07/2018 [facility] mg/dL 11:12 AM [facility] Specimen Anatomical Collection Method Collection Time Receive d Time (Source) Location / / Volume Laterality 11/07/2018 9:50 AM 9 [facility] 10:04 AM [facility] Gurwinder Godoy MD LAB - BLOOD ORDERABLES Performing Organization Address City/State/ZIP Code Phon e Number M [employer] [address] [place] [address] [facility] [address] [place] [address], [place] [phone] (ABNORMAL) CBC with platelets differential (11/07/2018 9:50 AM [facility]) Patholo gist Method Time Signature WBC 10.4 4.0 - 11/07/2018 [facility] 11.0 10:13 AM [facility] 10e9/L [facility] RBC Count 3.63 (L) 4.4 - 5.9 11/07/2018 [facility] 10e12/L 10:13 AM [facility] Hemoglobin 11.5 (L) 13.3 - 11/07/2018 [facility] 17.7 g/dL 10:13 AM [facility] Hematocrit 34.3 (L) 40.0 - 11/07/2018 [facility] 53.0 % 10:13 AM [facility] MCV 95 78 - 100 11/07/2018 [facility] fl 10:13 AM [facility] MCH 31.7 26.5 - 11/07/2018 [facility] 33.0 pg 10:13 AM [facility] MCHC 33.5 31.5 - 11/07/2018 [facility] 36.5 g/dL 10:13 AM [facility] RDW 14.0 10.0 - 11/07/2018 [facility] 15.0 % 10:13 AM [facility] Platelet Count 82 (L) 150 - 450 11/07/2018 [facility] 10e9/L 10:37 AM [facility] Diff Method Automated 11/07/2018 [facility] Method 10:37 AM [facility] % Neutrophils 78.8 % 11/07/2018 [facility] 10:37 AM [facility] % Lymphocytes 6.2 % 11/07/2018 [facility] 10:37 AM [facility] % Monocytes 14.7 % 11/07/2018 [facility] 10:37 [facility] % Eosinophils 0.2 % 11/07/2018 [facility] 10:37 AM [facility] % Basophils 0.0 % 11/07/2018 [facility] 10:37 AM [facility] % Immature 0.1 % 11/07/2018 [facility] Granulocytes 10:37 AM [facility] Nucleated RBCs 0 0 /100 11/07/2018 [facility] 10:37 AM [facility] Absolute 8.2 1.6 - 8.3 11/07/2018 [facility] Neutrophil 10e9/L 10:37 AM [facility] Absolute 0.6 (L) 0.8 - 5.3 11/07/2018 [facility] Lymphocytes 10e9/L 10:37 AM [facility] Absolute 1.5 (H) 0.0 - 1.3 11/07/2018 [facility] Monocytes 10e9/L 10:37 AM [facility] Absolute 0.0 0.0 - 0.7 11/07/2018 [facility] Eosinophils 10e9/L 10:37 AM [facility] Absolute 0.0 0.0 - 0.2 11/07/2018 [facility] Basophils 10e9/L 10:37 AM [facility] Abs Immature 0.0 0 - 0.4 11/07/2018 [facility] Granulocytes 10e9/L 10:37 AM [facility] Absolute 0.0 11/07/2018 [facility] Nucleated RBC 10:37 AM [facility] Ovalocytes Slight 11/07/2018 [facility] 10:37 AM [facility] Platelet Automated 11/07/2018 [facility] Estimate count 10:37 AM [facility] confirmed. [facility] Platelet morphology is normal. Specimen Anatomical Collection Method Collection Time Receive d Time (Source) Location / / Volume Laterality Blood specimen 11/07/2018 9:50 AM 019 (specimen) [facility] 10:04 AM [facility] Gurwinder Godoy MD LAB - BLOOD ORDERABLES Performing Organization Address City/State/ZIP Code Phon e Number M [employer] [address] [phone] [facility] [address] [address], [facility] [phone] (ABNORMAL) Basic metabolic panel (11/07/2018 9:50 AM [facility]) Analysis Performed At Patho logist Time Signature Sodium 147 (H) 133 - 144 11/07/2018 [facility] mmol/L 10:16 AM [facility] Potassium 4.1 3.4 - 5.3 11/07/2018 [facility] mmol/L 10:16 AM [facility] Chloride 117 (H) 94 - 109 11/07/2018 [facility] mmol/L 10:16 AM [facility] Carbon Dioxide 20 20 - 32 11/07/2018 [facility] mmol/L 10:23 AM [facility] Anion Gap 10 3 - 14 11/07/2018 [facility] mmol/L 10:23 AM [facility] Glucose 108 (H) 70 - 99 11/07/2018 [facility] mg/dL 10:23 AM [facility] Urea Nitrogen 23 7 - 30 11/07/2018 [facility] mg/dL 10:23 AM [facility] Creatinine 1.47 (H) 0.66 - 11/07/2018 [facility] 1.25 mg/dL 10:23 AM [facility] GFR Estimate 46 (L) >60 11/07/2018 [facility] mL/min/{1. 10:23 AM [facility] 73_m2} [facility] Comment: Non GFR Calc Starting 10/05/2018, serum creatinine ba sed estimated GFR (eGFR) will be calculated using the Chronic Kidney Dise [facility] Epidemiology Collaboration (CKD-EPI) equation. GFR Estimate If 53 (L) >60 mL/min/{1.73_m2} 11/07/2018 10 :23 AM [facility] Comment: GFR Calc Starting 10/05/2018, serum creatinine ba sed estimated GFR (eGFR) will be calculated using the Chronic Kidney Dise [facility] Epidemiology Collaboration (CKD-EPI) equation. Calcium 8.2 (L) 8.5 - 10.1 mg/dL 11/07/2018 10:23 AM [facility] Specimen Anatomical Collection Method Collection Time Receive d Time (Source) Location / / Volume Laterality Blood specimen 11/07/2018 9:50 AM 019 (specimen) [facility] 10:04 AM [facility] Gurwinder Godoy MD LAB - BLOOD ORDERABLES Performing Organization Address City/State/ZIP Code Phon e Number M [employer] [address] [address] [phone] [facility] [address] [address], [facility] [phone] (ABNORMAL) Glucose by meter (11/07/2018 7:44 AM [facility]) P athologist Signature Glucose 112 (H) 70 - 99 11/07/2018 [facility] mg/dL 7:56 AM [facility] TEST, GLUCOSE Specimen Anatomical Collection Method Collection Time Receive d Time (Source) Location / / Volume Laterality 11/07/2018 7:44 AM 9 7:56 [facility] AM [facility] Juan Lewis MD LAB - BEAKER POCT Performing Organization Address City/State/ZIP Code Phon e Number [facility] POINT OF CARE TEST, GLUCOSE POINT OF CARE TEST, GLUCOSE (ABNORMAL) Glucose by meter (11/07/2018 3:49 AM [facility]) P athologist Signature Glucose 105 (H) 70 - 99 11/07/2018 [facility] mg/dL 4:01 AM [facility] TEST, GLUCOSE Specimen Anatomical Collection Method Collection Time Receive d Time (Source) Location / / Volume Laterality 11/07/2018 3:49 AM 9 4:01 [facility] AM [facility] Juan Lewis MD LAB - BEAKER POCT Performing Organization Address City/State/ZIP Code Phon e Number [facility] POINT OF CARE TEST, GLUCOSE POINT OF CARE TEST, GLUCOSE (ABNORMAL) Glucose by meter (11/07/2018 12:08 AM [facility]) P athologist Signature Glucose 119 (H) 70 - 99 11/07/2018 [facility] mg/dL 12:19 AM [facility] TEST, GLUCOSE Specimen Anatomical Collection Method Collection Time Receive d Time (Source) Location / / Volume Laterality 11/07/2018 12:08 11/07/2018 AM [facility] 12:19 AM [facility] Juan Lewis MD LAB - CAROLYN POCT Performing Organization Address City/State/ZIP Code Phon e Number [facility] POINT OF CARE TEST, GLUCOSE POINT OF CARE TEST, GLUCOSE (ABNORMAL) Glucose by meter (11/06/2018 7:53 PM [facility]) P athologist Signature Glucose 116 (H) 70 - 99 11/06/2018 [facility] mg/dL 8:04 PM [facility] TEST, GLUCOSE Specimen Anatomical Collection Method Collection Time Receive d Time (Source) Location / / Volume Laterality 11/06/2018 7:53 PM 9 8:04 [facility] REFEREE PM [facility]FER[facility] Juan Lewis MD LAB - BEFOUZIA POCT Performing Organization Address City/State/ZIP Code Phon e Number [facility] POINT OF CARE TEST, GLUCOSE POINT OF CARE TEST, GLUCOSE (ABNORMAL) Glucose by meter (11/06/2018 11:02 AM [facility]) P athologist Signature Glucose 109 (H) 70 - 99 11/06/2018 [facility] mg/dL 11:13 AM [facility] TEST, GLUCOSE Specimen Anatomical Collection Method Collection Time Receive d Time (Source) Location / / Volume Laterality 11/06/2018 11:02 11/06/2018 AM [facility] 11:13 AM [facility] Juan YUAN - BEFOUZIA POCT Performing Organization Address City/State/ZIP Code Phon e Number [facility] POINT OF CARE TEST, GLUCOSE POINT OF CARE TEST, GLUCOSE (ABNORMAL) Glucose by meter (11/06/2018 7:38 AM [facility]) P athologist Signature Glucose 104 (H) 70 - 99 11/06/2018 [facility] mg/dL 7:50 AM [facility]FER[facility] TEST, GLUCOSE Specimen Anatomical Collection Method Collection Time Receive d Time (Source) Location / / Volume Laterality 11/06/2018 7:38 AM 9 7:50 V[facility] REFEREE AM [facility] REFEREE Juan YUAN - BEFOUZIA POCT Performing Organization Address City/[facility]/ZIP Code Phon e Number [facility] POINT OF CARE TEST, GLUCOSE POINT OF CARE TEST, GLUCOSE Lactic acid whole blood (11/06/2018 4:15 AM [facility]) P athologist Signature Lactic Acid 1.4 0.7 - 2.0 11/06/2018 [facility] mmol/L 4:40 AM [facility] Specimen Anatomical Collection Method Collection Time Receive d Time (Source) Location / / Volume Laterality Blood specimen 11/06/2018 4:15 AM 019 4:25 (specimen) VOLLEYBALL REFEREE AM [facility] Bessy Mccray MD LAB - BLOOD ORDERABLES Performing Organization Address City/[facility]/ZIP Code Phon e Number M [employer] [address] [place] [address] [facility] [address] [place] [address], U [phone] (ABNORMAL) Basic metabolic panel (11/06/2018 4:15 AM [facility]) Analysis Performed At Patho logist Time Signature Sodium 142 133 - 144 11/06/2018 [facility] mmol/L 4:49 AM [facility] Potassium 4.4 3.4 - 5.3 11/06/2018 [facility] mmol/L 4:49 AM [facility] Chloride 113 (H) 94 - 109 11/06/2018 [facility] mmol/L 4:49 AM [facility] Carbon Dioxide 21 20 - 32 11/06/2018 [facility] mmol/L 4:54 AM [facility] Anion Gap 8 3 - 14 11/06/2018 [facility] mmol/L 4:54 AM [facility] Glucose 115 (H) 70 - 99 11/06/2018 [facility] mg/dL 4:54 AM [facility] Urea Nitrogen 27 7 - 30 11/06/2018 [facility] mg/dL 4:54 AM [facility] Creatinine 1.57 (H) 0.66 - 11/06/2018 [facility] 1.25 mg/dL 4:54 AM [facility] GFR Estimate 42 (L) >60 11/06/2018 [facility] mL/min/{1. 4:54 AM [facility] 73_m2} [facility] Comment: Non GFR Calc Starting 10/05/2018, serum creatinine ba sed estimated GFR (eGFR) will be calculated using the Chronic Kidney Dise [facility] Epidemiology Collaboration (CKD-EPI) equation. GFR Estimate If 49 (L) >60 mL/min/{1.73_m2} 11/06/2018 4: 54 AM [facility] Comment: GFR Calc Starting 10/05/2018, serum creatinine ba sed estimated GFR (eGFR) will be calculated using the Chronic Kidney Dise [facility] Epidemiology Collaboration (CKD-EPI) equation. Calcium 7.8 (L) 8.5 - 10.1 mg/dL 11/06/2018 4:54 AM [facility] Specimen Anatomical Collection Method Collection Time Receive d Time (Source) Location / / Volume Laterality Blood specimen 11/06/2018 4:15 AM 019 4:25 (specimen) VOLLEYBALL REFEREE AM [facility] Bessy Mccray MD LAB - BLOOD ORDERABLES Performing Organization Address City/State/ZIP Code Phon e Number M [employer] [address] [address] [phone] [facility] [address] [address], [place] [phone] (ABNORMAL) CBC with platelets (11/06/2018 4:15 AM [facility]) Analysis Performed At Patho logist Time Signature WBC 12.9 (H) 4.0 - 11.0 11/06/2018 [facility] 10e9/L 4:45 AM [facility] RBC Count 3.93 (L) 4.4 - 5.9 11/06/2018 [facility] 10e12/L 4:45 AM [facility] Hemoglobin 12.5 (L) 13.3 - 11/06/2018 [facility] 17.7 g/dL 4:45 AM [facility] Hematocrit 36.8 (L) 40.0 - 11/06/2018 [facility] 53.0 % 4:45 AM [facility] MCV 94 78 - 100 11/06/2018 [facility] fl 4:45 AM [facility] MCH 31.8 26.5 - 11/06/2018 [facility] 33.0 pg 4:45 AM [facility] MCHC 34.0 31.5 - 11/06/2018 [facility] 36.5 g/dL 4:45 AM [facility] RDW 13.2 10.0 - 11/06/2018 [facility] 15.0 % 4:45 AM [facility] Platelet Count 153 150 - 450 11/06/2018 [facility] 10e9/L 4:45 AM [facility] Specimen Anatomical Collection Method Collection Time Receive d Time (Source) Location / / Volume Laterality Blood specimen 11/06/2018 4:15 AM 019 4:25 (specimen) VOLLEYBALL REFEREE AM [facility] Bessy Mccray MD LAB - BLOOD ORDERABLES Performing Organization Address City/State/ZIP Code Phon e Number M [employer] [address] [address] [facility] [address] [address], U [phone] (ABNORMAL) Glucose by meter (11/06/2018 1:12 AM [facility]) P athologist Signature Glucose 126 (H) 70 - 99 11/06/2018 [facility]ARE mg/dL 1:24 AM [facility] REFER[facility] TEST, GLUCOSE Specimen Anatomical Collection Method Collection Time Receive d Time (Source) Location / / Volume Laterality 11/06/2018 1:12 AM 9 1:24 VOLLEYBALL REFEREE AM [facility]BALL REFEREE Juan YUAN - BEAKER POCT Performing Organization Address City/State/ZIP Code Phon e Number [facility] POINT OF CARE TEST, GLUCOSE POINT OF CARE TEST, GLUCOSE Methicillin Resist/Sens S. aureus PCR (11/05/2018 11:41 PM V[facility]ALL REFEREE) [facility] Method Time Signature Specimen Nares 11/05/2018 [facility] Description 11:45 PM [facility] REFEREE [facility] Methicillin Negative NEG^Negat 11/06/2018 [facility] Resist/Sens S. shin 2:36 AM [facility] [place] [facility] aureus PCR [facility] Comment: MRSA Negative: SA Negative ??MRSA and St aphylococcus aureus target DNA not detected, presumed negative for MRSA and SA colonization or the number of bacteria present may be below the limit of detection for the assay. FDA approved assay performed using [employer] eneXpert(R) real-time PCR. Specimen (Source) Anatomical Collection Method Collection Time Re ceived Time Location / / Volume Laterality Nasal structure 11/05/2018 11:41 11/06/19 19 (body structure) PM VOLLEYBALL REFEREE Bessy Mccray MD LAB - MICRO GENERAL ORDERABL ES Performing Organization Address City/[facility]/ZIP Code Phon e Number [facility] [address] [place] [address] [facility] [address] [place] [address], [facility] [phone] (ABNORMAL) Glucose by meter (11/05/2018 8:16 PM VOLLEYBALL REFEREE) P athologist Signature Glucose 128 (H) 70 - 99 11/05/2018 [facility] CARE mg/dL 8:28 PM V[facility]BALL REFEREE TEST, GLUCOSE Specimen Anatomical Collection Method Collection Time Receive d Time (Source) Location / / Volume Laterality 11/05/2018 8:16 PM 9 8:28 VOLLEYBALL REFEREE PM VOLLEYBALL REFEREE Juan YUAN - BEFOUZIA POCT Performing Organization Address City/State/ZIP Code Phon e Number [facility] POINT OF CARE TEST, GLUCOSE POINT OF CARE TEST, GLUCOSE (ABNORMAL) Glucose by meter (11/05/2018 4:39 PM [facility] REFEREE) P athologist Signature Glucose 124 (H) 70 - 99 11/05/2018 [facility] C[facility] mg/dL 4:50 PM [facility]BALL REFEREE TEST, GLUCOSE Specimen Anatomical Collection Method Collection Time Receive d Time (Source) Location / / Volume Laterality 11/05/2018 4:39 PM 9 4:50 VOLLEYBALL REFEREE PM VOLLEYBALL REFEREE Juan Lewis MD LAB - BEAKER POCT Performing Organization Address City/State/ZIP Code Phon e Number [facility] POINT OF CARE TEST, GLUCOSE POINT OF CARE TEST, GLUCOSE (ABNORMAL) CBC with platelets (11/05/2018 4:35 PM V[facility]BALL REFEREE) Analysis Performed At Patho logist Time Signature WBC 7.3 4.0 - 11.0 11/05/2018 [facility] 10e9/L 5:22 PM [facility] RBC Count 4.35 (L) 4.4 - 5.9 11/05/2018 [facility] 10e12/L 5:22 PM [facility] Hemoglobin 13.7 13.3 - 11/05/2018 [facility] 17.7 g/dL 5:22 PM [facility] Hematocrit 40.9 40.0 - 11/05/2018 [facility] 53.0 % 5:22 PM [facility] MCV 94 78 - 100 11/05/2018 [facility] fl 5:22 PM [facility] MCH 31.5 26.5 - 11/05/2018 [facility] 33.0 pg 5:22 PM [facility] MCHC 33.5 31.5 - 11/05/2018 [facility] 36.5 g/dL 5:22 PM [facility] RDW 13.1 10.0 - 11/05/2018 [facility] 15.0 % 5:22 PM [facility] Platelet Count 108 (L) 150 - 450 11/05/2018 [facility] 10e9/L 5:22 PM [facility] Specimen Anatomical Collection Method Collection Time Receive d Time (Source) Location / / Volume Laterality Blood specimen 11/05/2018 4:35 PM 019 5:17 (specimen) VOLLEYBALL REFEREE PM VOLLEYBALL REFEREE Bessy Mccray MD LAB - BLOOD ORDERABLES Performing Organization Address City/State/ZIP Code Phon e Number M [employer] [address] [address] [facility] [address] [address], [place] [phone] INR (11/05/2018 4:35 PM V[facility] REFEREE) P athologist Signature INR 1.03 0.86 - 1.14 11/05/2018 [facility] 5:33 PM [facility] Specimen Anatomical Collection Method Collection Time Receive d Time (Source) Location / / Volume Laterality Blood specimen 11/05/2018 4:35 PM 019 5:17 (specimen) VOLLEYBALL REFEREE PM VOLLEYBALL REFEREE Bessy Mccray MD LAB - BLOOD ORDERABLES Performing Organization Address City/State/ZIP Code Phon e Number [facility] [address] [place] [address] [phone] [facility] [address] [place] [address], [place] [phone] Lactic acid whole blood (11/05/2018 4:35 PM V[facility]) P athologist Signature Lactic Acid 1.0 0.7 - 2.0 11/05/2018 [place] mmol/L 5:57 PM [facility] Specimen Anatomical Collection Method Collection Time Receive d Time (Source) Location / / Volume Laterality Blood specimen 11/05/2018 4:35 PM 019 5:18 (specimen) [facility] PM [facility]FER[facility] Bessy Mccray MD LAB - BLOOD ORDERABLES Performing Organization Address City/State/ZIP Code Phon e Number [facility] [address] [place] [address] [facility] [address] [place] [address], [place] [phone] (ABNORMAL) Basic metabolic panel (11/05/2018 4:35 PM [facility]FER[facility]) Analysis Performed At Patho logist Time Signature Sodium 143 133 - 144 11/05/2018 [place] mmol/L 5:38 PM [facility] Potassium 4.3 3.4 - 5.3 11/05/2018 [facility] mmol/L 5:38 PM [facility] Chloride 113 (H) 94 - 109 11/05/2018 [facility] mmol/L 5:38 PM [facility] Carbon Dioxide 22 20 - 32 11/05/2018 [place] mmol/L 5:43 PM [facility] Anion Gap 8 3 - 14 11/05/2018 [facility] mmol/L 5:43 PM [facility] Glucose 121 (H) 70 - 99 11/05/2018 [place] mg/dL 5:43 PM [facility] Urea Nitrogen 24 7 - 30 11/05/2018 [place] mg/dL 5:43 PM [facility] Creatinine 1.30 (H) 0.66 - 11/05/2018 [facility] 1.25 mg/dL 5:43 PM [facility] GFR Estimate 53 (L) >60 11/05/2018 [facility] mL/min/{1. 5:43 PM [facility] Comment: Non GFR Calc Starting 10/05/2018, serum creatinine ba sed estimated GFR (eGFR) will be calculated using the Chronic Kidney Dise [facility] Epidemiology Collaboration (CKD-EPI) equation. GFR Estimate If 61 >60 mL/min/{1.73_m2} 11/05/2018 5: 43 PM [facility] Comment: GFR Calc Starting 10/05/2018, serum creatinine ba sed estimated GFR (eGFR) will be calculated using the Chronic Kidney Dise [facility] Epidemiology Collaboration (CKD-EPI) equation. Calcium 8.6 8.5 - 10.1 mg/dL 11/05/2018 5:43 PM [facility] Specimen Anatomical Collection Method Collection Time Receive d Time (Source) Location / / Volume Laterality Blood specimen 11/05/2018 4:35 PM 019 5:17 (specimen) VOLLEYBALL REFEREE PM VOLLEYBALL REFEREE Bessy Mccray MD LAB - BLOOD ORDERABLES Performing Organization Address City/State/ZIP Code Phon e Number [facility] [address] [address] [facility] [address] [address], [place] [phone] IR Thoracic Endovascular Stent Graft (11/05/2018 12:09 PM VOLLEYBALL REFEREE) Anatomical Region Laterality Modality Chest Radio Fluoroscopy Specimen (Source) Anatomical Location Collection Method / Collectio n Time Received Time / Laterality Volume Impressions 11/06/2018 3:33 PM V[facility]LEYBALL REFEREE IMPRESSION: Successful deployment in 2 components for [...] KANNAN MORSE MD Narrative 11/06/2018 3:33 PM VOLLEYBALL REFEREE INTERVENTIONAL RADIOLOGY THORACIC ENDOVASCULAR STENT GRAFT ??11/05/2018 [...] tion. Over a series of maneuvers, 6 Indonesian vascular sheath was placed. From left groin [...] tion. Over a series of maneuvers, 6 Indonesian vascular sheath was placed. From left groin [...] Drain Placement w Fluoro (11/05/2018 9:10 AM VOLLEYBALL REFEREE) Anatomical Region Laterality Modality Spine Radio Fluoroscopy Specimen (Source) Anatomical Location Collection Method / Collectio n Time Received Time / Laterality Volume Narrative 11/05/2018 9:19 AM VOLLEYBALL REFEREE [facility] RADIOLOGY INTERVENTIONAL NEURORADIOLOGY PROCEDURAL NOTE FLUOROSCOPICALLY [...] codes included for physician referen ce only: [id number] MISSAEL GARCIA MD Procedure Note Missael Garica MD - 11/05/2018For matting of this note might be different from the original. [facility] RADIOLOGY INTERVENTIONAL NEURORADIOLOGY PROCEDURAL NOTE FLUOROSCOPICALLY [...] codes included for physician referen ce only: [id number] MISSAEL GARCIA MD Butch Brown MD IMG IR ORDERABLES EKG 12-lead, tracing only (11/05/2018 6:58 AM VOLLEYBALL REFEREE) [facility] gist Method Time Signature Interpretation ECG Click View RADIOLOGY Image link RESULTS to view waveform and result Specimen (Source) Anatomical Collection Method Collection Time Re ceived Time Location / / Volume Laterality 11/05/2018 6:58 AM VOLLEYBALL REFEREE Juan Lewis MD ECG ORDERABLES Performing Organization Address City/State/ZIP Code Phon e Number RADIOLOGY RESULTS Potassium (11/05/2018 6:55 AM VOLLEYBALL REFEREE) athologist Signature Potassium 4.3 3.4 - 5.3 11/05/2018 [facility] mmol/L 7:15 AM V[facility]LEYBALL REFEREE [facility] Specimen Anatomical Collection Method Collection Time Receive d Time (Source) Location / / Volume Laterality Blood specimen 11/05/2018 6:55 AM 019 6:56 (specimen) VOLLEYBALL REFEREE AM VOLLEYBALL REFEREE Zakia Tobin MD LAB - BLOOD ORDERABLES Performing Organization Address City/State/ZIP Code Phon e Number [facility] [address] [place] [address] [phone] [facility] [address] [place] [address], [place] [phone] Lipid panel (11/05/2018 6:55 AM VOLLEYBALL REFEREE) Analysis Performed At Patho logist Time Signature Cholesterol 128 <200 mg/dL 11/05/2018 [facility] 7:20 AM [facility] Triglycerides 125 <150 mg/dL 11/05/2018 [facility] 7:21 AM [facility] HDL Cholesterol 59 >39 mg/dL 11/05/2018 [facility] 7:23 AM [facility] LDL Cholesterol 44 <100 mg/dL 11/05/2018 [facility] Calculated 7:23 AM [facility] Comment: Desirable: <100 mg/dl Non HDL Cholesterol 69 <130 mg/dL 11/05/2018 7:23 AM [facility] Specimen Anatomical Collection Method Collection Time Receive d Time (Source) Location / / Volume Laterality Blood specimen 11/05/2018 6:55 AM 019 6:56 (specimen) VOLLEYBALL REFEREE AM VOLLEYBALL REFEREE Juan Lewis MD LAB - BLOOD ORDERABLES Performing Organization Address City/State/ZIP Code Phon e Number [facility] [address] [place] [address] [facility] [address] [place] [address], [place] [phone] Hemoglobin A1c (11/05/2018 6:55 AM V[facility]LEYBALL REFEREE) P athologist Signature Hemoglobin A1C 5.2 0 - 5.6 % 11/05/2018 [facility] 7:30 AM [facility] Comment: Normal <5.7% Prediabetes 5.7-6.4% ??Diab etes 6.5% or higher - adopted from ADA consensus guidelines. Specimen Anatomical Collection Method Collection Time Receive d Time (Source) Location / / Volume Laterality Blood specimen 11/05/2018 6:55 AM 019 6:56 (specimen) VOLLEYBALL REFEREE AM VOLLEYBALL REFEREE Juan Lewis MD LAB - BLOOD ORDERABLES Performing Organization Address City/State/ZIP Code Phon e Number [facility] [address] [address] [phone] [facility] [address] [place] [address], [place] [phone] (ABNORMAL) Creatinine (11/05/2018 6:55 AM VOLLEYBALL REFEREE) athologist Signature Creatinine 1.52 (H) 0.66 - 11/05/2018 [facility] 1.25 mg/dL 7:20 AM [facility] GFR Estimate 44 (L) >60 11/05/2018 [facility] mL/min/{1. 7:20 AM [facility] 73_m2} [facility] Comment: Non GFR Calc Starting 10/05/2018, serum creatinine ba sed estimated GFR (eGFR) will be calculated using the Chronic Kidney Dise [facility] Epidemiology Collaboration (CKD-EPI) equation. GFR Estimate If 51 (L) >60 mL/min/{1.73_m2} 11/05/2018 7: 20 AM [facility] Comment: GFR Calc Starting 10/05/2018, serum creatinine ba sed estimated GFR (eGFR) will be calculated using the Chronic Kidney Dise [facility] Epidemiology Collaboration (CKD-EPI) equation. Specimen Anatomical Collection Method Collection Time Receive d Time (Source) Location / / Volume Laterality Blood specimen 11/05/2018 6:55 AM 019 6:56 (specimen) VOLLEYBALL REFEREE AM VOLLEYBALL REFEREE Juan Lewis MD LAB - BLOOD ORDERABLES Performing Organization Address City/State/ZIP Code Phon e Number [facility] [address] [address] [facility] [address] [place] [address], [place] [phone] XR Chest Port 1 View (11/05/2018 6:40 AM VOLLEYBALL REFEREE) Anatomical Region Laterality Modality Chest Digital Radiography Specimen (Source) Anatomical Location Collection Method / Collectio n Time Received Time / Laterality Volume Impressions 11/05/2018 6:58 AM VOLLEYBALL REFEREE IMPRESSION: No acute abnormality. TORI SANTIZO MD Narrative 11/05/2018 6:58 AM VOLLEYBALL REFEREE XR CHEST PORTABLE 1 VIEW ?? 11/05/2018 [...] CARDIAC - HIM SCAN (09/24/2018 12:00 AM VOLLEYBALL REFEREE) Specimen (Source) Anatomical Location Collection Method / [...] acetaminophen (TYLENOL) tablet Given 11/08/2018 11:04 PM VOLLEYBALL REFEREE 975 mg 975 mg 975 mg, Oral, EVERY 6 HOURS PRN, mild pain, fever, Starting on Thu11/05/18 at 1827, Maximum acetaminophen dose from all sources = 75 mg/kg/day not to exceed 4 grams/day. Given 11/08/2018 12:37 PM VOLLEYBALL REFEREE 975 mg Given 11/07/2018 11:03 AM VOLLEYBALL REFEREE 975 mg alum & mag hydroxide-simethicone (MYLANTA Given 11/08/2018 2:48 AM VOLLEYBALL REFEREE 30 mLs ES/MAALOX ES) suspension 30 mL 30 mL, Oral, EVERY 4 HOURS PRN, indigestion, Starting on Thu11/05/18 at 1510, Shake well. apixaban ANTICOAGULANT (ELIQUIS) tablet 2.5 Given 10/20 12:04 PM VOLLEYBALL REFEREE 2.5 mg mg 2.5 mg, Oral, 2 TIMES DAILY, First dose on Thu11/09/18 at 1115 atorvastatin (LIPITOR) tablet 40 mg Given 11/08/2018 8:20 PM VOLLEYBALL REFEREE 40 mg 40 mg, Oral, EVERY EVENING, First dose on Thu11/05/18 at 2000 Given 11/07/2018 7:49 PM VOLLEYBALL REFEREE 40 mg Given 11/06/2018 9:16 PM VOLLEYBALL REFEREE 40 mg BUPivacaine (MARCAINE) Given 11/05/2018 12:07 PM 20 mLs Operative Site/Surgical injection 0.5% PF VOLLEYBALL REFEREE Site PRN, Starting on Thu11/05/18 at 1207, Intra-procedure calcium carbonate (TUMS) chewable tablet Given 11/07/2018 10 :34 PM VOLLEYBALL REFEREE 1,000 mg 1,000 mg 1,000 mg, Oral, EVERY 2 HOURS PRN, heartburn, Starting on Thu11/06/18 at 0408, Do not give if calcium level greater than 10 mg/dL. Given 11/07/2018 12:05 AM VOLLEYBALL REFEREE 1,000 mg Given 11/06/2018 4:50 AM VOLLEYBALL REFEREE 1,000 mg cyclobenzaprine (FLEXERIL) tablet 5-10 m g Given 11/08/2018 3:58 AM V[facility]BALL REFEREE 10 mg 5-10 mg, Oral, 3 TIMES DAILY PRN, muscle spasms, Starting on Thu11/07/18 at 1153 Given 11/07/2018 2:26 PM VOLLEYBALL REFEREE 5 mg diphenhydrAMINE (BENADRYL) injection 12. 5 mg 12.5 mg, Intravenous, EVERY 6 HOURS PRN, itching, Only give if patient unable to take PO., Starting on Thu11/05/18 at 151 0, Caution to be used when administering multiple TRANSPORTATION ESCORT depressing meds within a sh ort time frame. For ordered IV doses 1-50 mg, give IV Push undiluted. Give each 25 mg over a minimum of 1 minute. Extend in non-emergency diphenhydrAMINE (BENADRYL) solution 12.5 mg 12.5 mg, Oral, EVERY 6 HOURS PRN, itchin g, Starting on Thu11/05/18 at 1510, Caution to be used when administering multiple TRANSPORTATION ESCORT depressing meds within a short time frame. heparin 10,000 units in Given 11/05/2018 11:06 AM 200 mLs Operative Site/Surgical 1000 mL 0.9% sodium VOLLEYBALL REFEREE Site chloride PRN, Starting on Thu11/05/18 at 1106, Intra-procedure hydrALAZINE (APRESOLINE) injection 10-20 mg Given 11/08/2018 7:03 PM VOLLEYBALL REFEREE 10 mg 10-20 mg, Intravenous, EVERY 1 [...] over 1 minute. Given 11/08/2018 11:51 AM VOLLEYBALL REFEREE 20 mg Given 11/08/2018 3:36 AM VOLLEYBALL REFEREE 20 mg iopamidol (ISOVUE-300) IV Given 11/05/2018 12:42 PM 75 mLs Operative Site/Surgical solution 61% VOLLEYBALL REFEREE Site PRN, Starting on Thu11/05/18 at 1242, Intra-procedure labetalol (NORMODYNE/TRANDATE) injection 10-20 Given 0 11/08/2018 3:03 AM VOLLEYBALL REFEREE 10 mg mg 10-20 mg, Intravenous, EVERY [...] over 2 minutes. Given 11/08/2018 2:33 AM VOLLEYBALL REFEREE 20 mg Given 11/07/2018 10:35 PM VOLLEYBALL REFEREE 10 mg magnesium sulfate 4 g in 100 mL sterile water (premade) 4 g, Intravenous, Administer over 120 Minutes, EVERY 4 HOURS PRN, magnesium supplementation, Starting on 11/07/18 at 1152, For serum Mg++ less than 1.6 mg/dL Give 4 g and recheck magnesium level 2 hours aft er dose, and next AM. metoprolol tartrate (LOPRESSOR) tablet 5 0 mg Given 11/09/2018 8:28 AM VOLLEYBALL REFEREE 50 mg 50 mg, Oral, 2 TIMES DAILY, First dose on Thu11/08/18 at 2100, Hold for SBP < 90, HR < 50 Given 11/08/2018 8:20 PM VOLLEYBALL REFEREE 50 mg omeprazole (priLOSEC) CR capsule 20 mg Given 11/09/2018 6:33 AM VOLLEYBALL REFEREE 20 mg 20 mg, Oral, EVERY MORNING BEFORE BREAKFAST, First dose on Thu11/07/18 at 2345 Given 11/08/2018 8:22 AM VOLLEYBALL REFEREE 20 mg Given 11/07/2018 11:48 PM VOLLEYBALL REFEREE 20 mg ondansetron (ZOFRAN) injection 4 mg Given 11/07/2018 11:48 PM VOLLEYBALL REFEREE 4 mg 4 mg, Intravenous, EVERY 6 [...] half-tab 2.5-5 mg Given 11/08/2018 12:37 PM VOLLEYBALL REFEREE 5 mg 2.5-5 mg, Oral, EVERY 4 HOURS PRN, moderate to severe pain, Starting on Thu11/05/18 at 1724 Given 11/08/2018 6:19 AM V[facility]LEYBALL REFEREE 5 mg Given 11/07/2018 7:49 PM VOLLEYBALL REFEREE 5 mg sennosides (SENOKOT) tablet 8.6 mg Given 11/08/2018 3:36 AM VOLLEYBALL REFEREE 8.6 mg 8.6 mg, Oral, 2 TIMES DAILY PRN, constipation, Starting on Thu11/08/18 at 0250 sodium chloride (PF) 0.9% PF flush 3 mL Given 11/07/2018 4:12 PM VOLLEYBALL REFEREE 3 mLs 3 mL, Intracatheter, EVERY 8 HOURS, First dose on Thu11/05/18 at 1515, And Q1H PRN, to lock peripheral IV dormant line. Given 11/07/2018 11:34 AM VOLLEYBALL REFEREE 3 mLs Given 11/07/2018 12:06 AM VOLLEYBALL REFEREE 10 mLs terazosin (HYTRIN) capsule 5 mg Given 11/08/2018 9:21 PM VOLLEYBALL REFEREE 5 mg 5 mg, Oral, AT BEDTIME, First dose on Thu11/05/18 at 2200 documented in this encounter Active and Recently Administered Medications Times are shown in VOLLEYBALL REFEREE. Scheduled Medication Order 11/07/2018 11/08/2018 11/09/2018 apixaban [...] Caution to be used when administering multiple TRANSPORTATION ESCORT depressing meds within a short time frame. For ordered IV doses 1-50 m g, give IV Push undiluted. Give each 25mg over a minimum of 1 minute. Extend in non-emergency diphenhydrAMINE (BENADRYL) solution 12.5 mg(Linked Group 1) 12.5 mg, Oral, EVERY 6 HOURS PRN, itchin g, Starting Thu11/05/18 at 1510, Caution to be used when administering multiple TRANSPORTATION ESCORT depressing meds within a short time frame. [...]
Caution to be used when administering multiple TRANSPORTATION ESCORT depressing meds within a short time frame.
Or diphenhydrAMINE (BENADRYL) injection 12.5 mgJump to med 12.5 mg, Intravenous, EVERY 6 HOURS PRN, itching, Only give if patient unable to take PO., Starting 11/05/18 at 1510
Caution to be used when administering multiple TRANSPORTATION ESCORT depressing meds within a short time frame. [...] as of this encounter Care Teams Rn Supplemental Relationship Specialty Start Date End Date Clinic, Kehinde Santos PCP - General 05/12/17 [address] [phone] documented as of this encounter
--- OUTSIDE RECORDS SUMMARY | 2022-06-05 13:47 | XMS_ITS | Encounter Summary ---
:1940 Author Organization [facility] Address [address] [place] [address] Care Team Providers Name Role Phone Clinic, [facility] Primary Care Provider [phone] Reason for Visit Auth/Cert Specialty Diagnoses / Procedures Referred By Contact Refer red To Contact Surgery Diagnoses DESCENDING THORACIC AORTIC ANEURYSM Sh Periop Services Procedures ENDOVASCULAR REPAIR ANEURYSM THORACIC AORTIC [address] [place] [address] Phone: Referral ID Status Reason Start Date Expiration Date Visits Requ ested Visits Authorized [id number] 1 1 Encounter Details Date Type Department Care Team Description 11/05/2018 Anesthesia Event [facility] Fela Conrad PeriOP Ser vices [facility] [address], [address] [facility] [place] [address] [phone] [place] [id number] (Wo rk) Anesthesia Record Procedure Summary Procedure [...] with oral Ivon Aguilar airway; 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] flushed: Yes Comments: Central Line No complications. AND BOILER COVERS SUPERVISOR Anesthesia Procedure Notes - Fela Conrad - 11/05/2018 3:23 PM PIPE AND BOILER COVERS SUPERVISOR Associated Order(s): A Line Catheter Placement ARTERIAL [...] waveform: Yes Comments: Arterial Line No complications AND BOILER COVERS SUPERVISOR Anesthesia Preprocedure Evaluation - Fela Conrad - [...] and alternatives discussed with: Patient.. Fela Conrad AND BOILER COVERS SUPERVISOR documented in this encounter Miscellaneous Notes [...] APRN CRNA November 05, 2018 12:44 PM AND [employer] SUPERVISOR documented in this encounter Plan of Treatment Not on filedocumented as of this encounter Procedures Procedure Name Priority Date/Time Associated Diagnosis Comme nts FV AN IL PA CENTRAL Routine 11/05/2018 3:24 PM PIPE AND BOILER COVERS SUPERVISOR LINE CATHETER PROCEDURE Procedure Note - Dariel [...] LINE CATHETER PLACEMENT Routine 11/05/2018 3:23 PM PIPE AND [employer]ILER COVERS SUPERVISOR Procedure Note - Dariel Conrad - 11/05/2018 [...] clindamycin (CLEOCIN) infusion Given 11/05/2018 10:28 AM PIPE AND [employer]IL[employer] COVERS SUPERVISOR 900 mg Routine, PRN, Starting on Thu11/05/18 at 1028, Anesthesia Intra-op dexamethasone (DECADRON) injection Given 11/05/2018 10:25 AM PIPE AND BOILER COVERS SUPERVISOR 4 mg PRN, Administer over 1 Minutes, Starting on Thu11/05/18 at 1025, Anesthesia Intra-op ePHEDrine injection Given 11/05/2018 10:55 AM PIPE [employer]ILER COVERS SUPERVISOR 10 mg PRN, Starting on Thu11/05/18 at 1025, Anesthesia Intra-op Given 11/05/2018 10:38 AM PIPE AND BOILER COVERS SUPERVISOR 5 mg Given 11/05/2018 10:25 AM PIPE AND BOILER COVERS SUPERVISOR 5 mg fentaNYL (PF) (SUBLIMAZE) injection Given 11/05/2018 11:48 AM PIPE AND BOILER COVERS SUPERVISOR 50 mcg PRN, Administer over 3-5 Minutes, Starting on Thu11/05/18 at 1010, Anesthesia Intra-op Given 11/05/2018 11:17 AM PIPE AND [employer]ILER COVERS SUPERVISOR 50 mcg Given 11/05/2018 10:10 AM PIPE AND BOILER COVERS SUPERVISOR 100 mcg glycopyrrolate (ROBINUL) injection Given 11/05/2018 12:09 PM PIPE AND BOILER COVERS SUPERVISOR 0.2 mg PRN, Administer over 1-2 Minutes, Starting on Thu11/05/18 at 1055, Anesthesia Intra-op Given 11/05/2018 12:07 PM PIPE AND BOILER COVERS SUPERVISOR 0.4 mg Given 11/05/2018 10:55 AM PIPE AND BOILER COVERS SUPERVISOR 0.2 mg heparin (porcine) injection Given 11/05/2018 10:59 AM PIPE AND BOILER COVERS SUPERVISOR 7,000 Units PRN, Starting on Thu11/05/18 at 1059, Anesthesia Intra-op lactated ringers infusion New Bag 11/05/2018 7:30 AM PIPE AND [employer]ILER COVERS SUPERVISOR Intravenous, CONTINUOUS PRN, Anesthesia Intra-op, Starting on Thu11/05/18 at 0957, Until Thu11/05/18 at 1244 lactated ringers infusion New Bag 11/05/2018 9:57 AM PIPE AND BOILER COVERS SUPERVISOR CONTINUOUS PRN, Anesthesia Intra-op, Starting on Thu11/05/18 at 0730, Until Thu11/05/18 at 1244 New Bag 11/05/2018 7:30 AM PIPE AND [employer]ILER COVERS SUPERVISOR lidocaine 2% injection (MDV) Given 11/05/2018 10:14 AM PIPE AND [employer]ILER COVERS SUPERVISOR 80 mg PRN, Starting on Thu11/05/18 at 1014, Anesthesia Intra-op neostigmine (PROSTIGMINE) injection Given 11/05/2018 12:09 PM PIPE AND [employer]ILER COVERS SUPERVISOR 2 mg Intravenous, PRN, Starting on Thu11/05/18 at 1207, Anesthesia Intra-op Given 11/05/2018 12:07 PM PIPE AND BOILER COVERS SUPERVISOR 2 mg nitroGLYcerin 25 mg in D5W 250 mL infusi on Given 11/05/2018 12:39 PM PIPE AND BOILER COVERS SUPERVISOR 10 mcg PRN, Starting on Thu11/05/18 at 1113, Anesthesia Intra-op Given 11/05/2018 12:38 PM PIPE AND [employer]ILER COVERS SUPERVISOR 15 mcg Given 11/05/2018 11:15 AM PIPE AND BOILER COVERS SUPERVISOR 10 mcg ondansetron (ZOFRAN) injection Given 11/05/2018 12:07 PM PIPE AND BOILER COVERS SUPERVISOR 4 mg PRN, Administer over 2-5 Minutes, Starting on Thu11/05/18 at 1207, Anesthesia Intra-op phenylephrine (CHRISTINE-SYNEPHRINE) injection Bolus 11/05/2018 11:23 AM PIPE AND [employer]ILER COVERS SUPERVISOR 50 mcg CONTINUOUS PRN, Starting on Thu11/05/18 at 1120, Anesthesia Intra-op New Bag 11/05/2018 11:20 AM PIPE AND BOILER COVERS SUPERVISOR 50 mcg phenylephrine 0.2 mg/mL Restarted 11/05/2018 11:39 AM 0.2 mcg/kg/min 5.06 mL/hr (mcg/kg/min) drip PIPE AND BOILER COVERS SUPERVISOR CONTINUOUS PRN, Starting on Thu11/05/18 at 1024, Anesthesia Intra-op Rate/Dose Change 11/05/2018 11:27 AM PIPE AND [employer]ILER COVERS SUPERVISOR 0.2 mcg/kg/min 5.06 mL/hr Restarted 11/05/2018 11:20 AM PIPE AND [employer]ILER COVERS SUPERVISOR 0.3 mcg/kg/min 7.59 mL/hr propofol (DIPRIVAN) injection 10 mg/mL v ial Given 11/05/2018 11:17 AM PIPE AND [employer]ILER COVERS SUPERVISOR 30 mg PRN, Starting on Thu11/05/18 at 1014, Anesthesia Intra-op Given 11/05/2018 10:14 AM PIPE AND BOILER COVERS SUPERVISOR 170 mg rocuronium (ZEMURON) injection Given 11/05/2018 10:15 AM PIPE AND [employer]ILER COVERS SUPERVISOR 50 mg PRN, Starting on Thu11/05/18 at 1015, Anesthesia Intra-op sodium chloride 0.9% infusion New Bag 11/05/2018 9:57 AM PIPE AND BOILER COVERS SUPERVISOR CONTINUOUS PRN, Anesthesia Intra-op, Starting on Thu11/05/18 at 0957, Until Thu11/05/18 at 1244 vecuronium (NORCURON) injection Given 11/05/2018 11:23 AM PIPE AND BOILER COVERS SUPERVISOR 1 mg PRN, Starting on Thu11/05/18 at 1031, Anesthesia Intra-op Given 11/05/2018 10:31 AM PIPE AND BOILER COVERS SUPERVISOR 2 mg documented in this encounter Additional Health Concerns Infection Onset Date Last Indicated Resolved Time MRSAComment: Positive 02/17/11 and 09/22/12 11/05/2018 019 Negatives 05/03/14 (HE), 12/01/14 (HE) documented as of this encounter Care Teams Swamper Relationship Specialty Start Date End Date [facility], [facility] PCP - General 05/12/[address] [place], [place] [id number] documented as of this encounter
--- OUTSIDE RECORDS SUMMARY | 2022-06-05 13:47 | XMS_ITS | Encounter Summary ---
:1940 Author Organization [facility] Address [address] [place] [address] Care Team Providers Name Role Phone Clinic, [facility] Primary Care Provider [phone] Reason for Visit Surgical Procedure Inpatient (Routine) - Closed Specialty Diagnoses / Procedures Referred By Contact Refer red To Contact Vascular Surgery / Diagnoses DESCENDING THORACIC AORTIC ANEURYSM Juan Vásquez Brett Surgery Procedures *OR51*DR. VÁSQUEZ/DR. GARVIN*THORACIC ENDOVASCULAR ANEURYSM REPAIR WITH [facility] GRAFT MD Pierre Nava MD [address] [place] [address] [place] [address] Fax: Referral ID Status Reason Start Date Expiration Date Visits Requ ested Visits Authorized [id number] Closed 11/05/2018 11/05/2019 1 1 Encounter Details Date Type Department Care Team Description 11/05/2018 Office Visit SX SURGERY CASES Butch Garvin MD [address] [place] [address] Juan Vásquez MD [address] [place] [id number] Fellow, Sh Surg Cons Social History Tobacco [...] documented as of this encounter Care Teams Greenhouse Grower Relationship Specialty Start Date End Date [facility] PCP - General 05/12/17 [address] [place] [address] documented as of this encounter
--- OUTSIDE RECORDS SUMMARY | 2022-06-05 13:47 | XMS_ITS | Encounter Summary ---
:1940 Author Organization [facility] Address [address] [place] [address] Care Team Providers Name Role Phone Kehinde Portillo Primary Care Provider [phone] Encounter Details Date Type Department Care Team [...] on filedocumented in this encounter Care Teams Pharmacy Benefits Coordinator Relationship Specialty Start Date End [facility] - General 05/12/[address] [place] [phone] documented as of this encounter
--- OUTSIDE RECORDS SUMMARY | 2022-06-05 13:47 | XMS_ITS | Encounter Summary ---
:1940 Author Organization [place] Address [address] [facility] [place] [address] Care Team Providers Name Role Phone Clinic, [facility] Primary Care Provider [phone] Reason for Visit Auth/Cert Specialty Diagnoses / Procedures Referred By Contact Refer red To Contact Surgery Diagnoses DESCENDING THORACIC AORTIC ANEURYSM Sh Periop Services Procedures ENDOVASCULAR REPAIR ANEURYSM THORACIC AORTIC [address], [address] [place] [address] Phone: Referral ID Status Reason Start Date Expiration Date Visits Requ ested Visits Authorized [id number] 1 1 Encounter Details Date Type Department Care Team Description 11/03/2018 Hospital Encounter [facility] Juan Lewis En counter for [facility] MD Elijah pre-operative [address] [place] [address] [address] [place] [address] Social History Tobacco Use Types Packs/Day Years [...] Refills Start Date End Date acetaminophen (TYLENOL) Take 500 mg by 0 500 MG tablet mouth 3 times daily as needed for mild pain apixaban ANTICOAGULANT Take 1 tablet (2.5 60 tablet 1 11/15 (ELIQUIS) 2.5 MG mg) by mouth 2 tabletIndications: times daily Transient cerebral ischemia, unspecified type atorvastatin (LIPITOR) 40 Take 1 tablet (40 30 tablet 0 MG tabletIndications: mg) by mouth daily Hyperlipidemia LDL goal <70, Acute left-sided low back pain without sciatica lisinopril Take 5 mg by mouth 0 [...] mg by mouth 0 capsule At Bedtime Acetaminophen (TYLENOL PO) Take 500 mg by 0 11/05/2018 mouth 3 times daily as needed furosemide (LASIX) 20 MG Take 20 mg by mouth 0 11/09/2018 tablet daily FUROSEMIDE PO Take 20 mg by mouth 0 daily lisinopril Take 0.5 tablets (5 30 tablet 0 11/15/201711/05 (PRINIVIL/ZESTRIL) 10 MG mg) by mouth daily tabletIndications: Uncontrolled hypertension METOPROLOL TARTRATE PO Take 50 mg by mouth 0 11/05/2018 2 times daily. SODIUM BICARBONATE PO Take 650 mg by 0 11/05/2018 mouth At Bedtime TERAZOSIN HCL PO Take 5 mg by mouth 0 11/05/2018 At Bedtime documented as of this encounter Plan of Treatment Not on filedocumented as of this encounter Procedures Procedure Name Priority Date/Time Associated Diagnosis Comme nts BLOOD COMPONENT Routine 11/03/2018 9:10 AM Encounter for Resul ts for this GENERAL I FARMWORKER pre-operative procedure are in laboratory testing the resul ts section. BLOOD COMPONENT Routine 11/03/2018 9:10 AM Encounter for Resul ts for this GENERAL I FARMWORKER pre-operative procedure are in laboratory testing the resul ts section. BLOOD COMPONENT Routine 11/03/2018 9:10 AM Encounter for Resul ts for this GENERAL I FARMWORKER pre-operative procedure are in laboratory testing the resul ts section. BLOOD COMPONENT Routine 11/03/2018 9:10 AM Encounter for Resul ts for this GENERAL I FARMWORKER pre-operative procedure are in laboratory testing the resul ts section. ABO/RH TYPE AND Routine 11/03/2018 9:10 AM Encounter for Resul ts for this SCREEN GENERAL I FARMWORKER pre-operative procedure are in laboratory testing the resul ts section. documented in this encounter Results Blood component (11/03/2018 9:10 AM GENERAL I FARMWORKER) [employer] Method Time Signature Unit Number [id number] 11/05/2018 [facility] 7:55 AM [facility] Blood Red Blood Cells 11/05/2018 [facility] Component LeukoReduced 7:55 AM [facility] HOSPITAL Division 00 11/05/2018 [facility] Number 7:55 AM [facility] Status of No longer 11/07/2018 [facility] Unit available 3:00 AM [facility] 11/07/2018 0300 [facility] Blood Product [id number] 11/05/2018 [facility] Code 7:55 AM [facility] Unit Status [facility] Specimen Anatomical Collection Method Collection Time Receive d Time (Source) Location / / Volume Laterality 11/03/2018 9:10 AM 9 9:19 GENERAL I FARMWORKER AM GENERAL I FARMWORKER Juan Lewis MD LABORATORY Performing Organization Address City/State/ZIP Code Phon e Number M [facility] [address], [place] [address] [facility] [address] [address], [facility] [address] [place], [place] [address], [facility] [phone] Blood component (11/03/2018 9:10 AM GENERAL I FARMWORKER) [facility] gist Method Time Signature Unit Number [id number] 11/05/2018 [facility] 7:55 AM [facility] Blood Red Blood 11/05/2018 [facility] Component Cells 7:55 AM [facility] Reduced Division 00 11/05/2018 [facility] Number 7:55 AM [facility] Status of No longer 11/07/2018 [facility] Unit available 3:00 AM [facility] 11/07/2018 [facility]PITAL 0300 Blood Product [id number] 11/05/2018 [facility] Code 7:55 AM [facility] Unit Status [facility] Specimen Anatomical Collection Method Collection Time Receive d Time (Source) Location / / Volume Laterality 11/03/2018 9:10 AM 9 9:19 GENERAL I FARMWORKER AM GENERAL I FARMWORKER Juan Lewis MD LABORATORY Performing Organization Address City/State/ZIP Code Phon e Number M [facility] [address], [place] [address] [place] [id number] [place] [address], [facility] [address], [place] [address], [facility] [phone] Blood component (11/03/2018 9:10 AM GENERAL I FARMWORKER) [employer] Method Time Signature Unit Number [id number] 11/03/2018 [facility] 10:39 AM [facility] Blood Red Blood 11/03/2018 [facility] Component Cells 10:39 AM [facility] Reduced Division 00 11/03/2018 [facility] Number 10:39 AM [facility] Status of No longer 11/07/2018 [facility] Unit available 3:00 AM [facility] 11/07/2018 HOSPITAL 0300 Blood Product [id number] 11/03/2018 [facility] Code 10:39 AM [facility] Unit Status [facility] Specimen Anatomical Collection Method Collection Time Receive d Time (Source) Location / / Volume Laterality 11/03/2018 9:10 AM 9 9:19 GENERAL I FARMWORKER AM GENERAL I FARMWORKER Juan Lewis MD LABORATORY Performing Organization Address City/State/ZIP Code Phon e Number M [facility] [address], [place] [address] [facility] [address] [place] [address], [facility] [address], [place] [address], [facility] [phone] Blood component (11/03/2018 9:10 AM GENERAL I FARMWORKER) [facility] [place] Method Time Signature Unit Number [id number] 11/03/2018 [facility] 10:39 AM [facility] Blood Red Blood 11/03/2018 [facility] Component Cells 10:39 AM [facility]uk[facility] HOSP[facility] Reduced Division 00 11/03/2018 [facility] Number 10:39 AM [facility] Status of No longer 11/07/2018 [facility] Unit available 3:00 AM [facility] 11/07/2018 HOSPITAL 0300 Blood Product [id number] 11/03/2018 [facility] Code 10:39 AM [facility] Unit Status [facility] Specimen Anatomical Collection Method Collection Time Receive d Time (Source) Location / / Volume Laterality 11/03/2018 9:10 AM 9 9:19 GENERAL I FARMWORKER AM GENERAL I FARMWORKER Juan Lewis MD LABORATORY Performing Organization Address City/State/ZIP Code Phon e Number M [facility] [address], [place] [address] [facility] [address] [place] [address], [facility] [address], [place] [address], [facility] [phone] (ABNORMAL) ABO/Rh type and screen (11/03/2018 9:10 AM GENERAL I FARMWORKER) [facility] [place] Method Time Signature Units Ordered 4 11/05/2018 [facility] 1:30 PM [facility] ABO O 11/03/2018 [facility] 10:15 AM [facility] RH(D) Pos [facility] Antibody Pos (A) 11/03/2018 [facility] Screen 10:15 AM [facility] Test Valid [place] 11/03/2018 [place] Only At [facility] 9:31 AM [facility] Specimen 11/06/2018 11/03/2018 [place] Expires 9:31 AM [facility] Crossmatch Red Blood 11/03/2018 [place] Cells 9:31 AM [facility] Specimen Anatomical Collection Method Collection Time Receive d Time (Source) Location / / Volume Laterality Blood specimen 11/03/2018 9:10 AM 019 9:19 (specimen) GENERAL I FARMWORKER AM GENERAL I FARMWORKER Juan Lewis MD LAB - BLOOD BANK TEST ORDER Performing Organization Address City/State/ZIP Code Phon e Number M [facility] [address] [address] [facility] [address] [address], [facility] [phone] documented in this encounter Visit Diagnoses Diagnosis Encounter for pre-operative laboratory t esting Preoperative examination, unspecified documented in this encounter Care Teams Park Naturalist Relationship Specialty Start Date End Date Clinic, [facility] PCP - General 05/12/[address] [place] [address] documented as of this encounter
--- OUTSIDE RECORDS SUMMARY | 2022-06-05 13:47 | XMS_ITS | Encounter Summary ---
:1940 Author Organization [place] Address [facility] [place] [address] Care Team Providers Name Role Phone [facility], [facility] Primary Care Provider [phone] Encounter Details Date Type Department Care Team Description 10/21/[address] [facility] Vascular Sophie piper, Juan Nava MD Clinic Tram [address] [place] [address] [place] [address] [phone] Social History Tobacco Use Types Packs/Day Years [...] REPAIR WITH [employer] Location of surgery: [facility] Date and time of surgery: 11/05/18 @ 8:30AM Surgeon: DR. VÁSQUEZ AND DR. GARVIN Pre-Op Appt Date: PT TO SCHEDULE AT [facility] Post-Op Appt Date: PT TO SCHEDULE Packet sent out: MAILED 10/25/18 Pre-cert/Authorization completed: Yes Date: 10/28/18 I have notified IR, ICU and anesthesia about this case. I have verified that anesthesia agrees with 3 day Eliquis hold because pt will need spinal drain. Aruna Simmons, Financial Aid Counselor FOLDER Telephone Encounter - Aruna Simmons - 10/25/2018 4:25 PM CST Spoke with daughter, Raquel, and she will have her dad come on 11/03/18 @ 9:00 to the [facility] lab for type and screen. I called the lab to make the appt for them. Aruna Simmons, Financial Aid Counselor FOLDER Telephone Encounter - Sondra Johnson RN - 10/22/2018 12:50 PM CST RN called [facility] Blood Bank and informed them of pt's upcoming surgery and request for 2 units of packed RBCs are available. Discussed with Blood Bank pt has RBC antibodies. Per Pam in blood bank, pt needs to have a type and screen drawn here at [facility] 48 hours prior to procedure. Pam stated pt could makea lab appointment on 11/03/18 or morning of 11/04/18. Pt's lab from 09/28/18 cannot be used as reference. Order entered for ABO/type and screen. Will route back to surgery scheduling. SHASTA Winkler, RN FOLDER Telephone Encounter - Aruna Simmons - 10/21/2018 [...] prior to the upcoming surgery. Aruna Simmons, Financial Aid Counselor FOLDER documented in this encounter Plan of Treatment Not on filedocumented as of this encounter Results (ABNORMAL) ABO/Rh type and screen (11/03/2018 9:10 AM BULK FOLDER) [facility] Method Time Signature Units Ordered 4 11/05/2018 [place] 1:30 PM [facility] ABO O 11/03/2018 [place] 10:15 AM [facility] RH(D) Pos [facility] Antibody Pos (A) 11/03/2018 [place] Screen 10:15 AM [facility] Test Valid [place] 11/03/2018 [place] Only At [facility] 9:31 AM [facility] Specimen 11/06/2018 11/03/2018 [place] Expires 9:31 AM [facility] Crossmatch Red Blood 11/03/2018 [place] Cells 9:31 AM [facility] Specimen Anatomical Collection Method Collection Time Receive d Time (Source) Location / / Volume Laterality Blood specimen 11/03/2018 9:10 AM 019 9:19 (specimen) BULK FOLDER AM BULK FOLDER Juan Vásquez MD LAB - BLOOD BANK TEST ORDER Performing Organization Address City/State/ZIP Code Phon e Number M [facility] [address] [place] [address] [phone] [facility] [address] [address], [facility] [phone] documented in this encounter Visit Diagnoses Diagnosis Abdominal aortic aneurysm (AAA) without rupture (H) - Primary Encounter for pre-operative laboratory t esting Preoperative examination, unspecified documented in this encounter Additional Health Concerns Infection Onset Date Last Indicated Resolved Time MRSAComment: Positive 02/17/11 and 09/22/12 11/05/2018 019 Negatives 05/03/14 (HE), 12/01/14 (HE) documented as of this encounter Care Teams 5Th Grade Teacher Relationship Specialty Start Date End Date [facility], [facility] PCP - General 05/12/17 [address] [place] [address] documented as of this encounter
--- OUTSIDE RECORDS SUMMARY | 2022-06-05 13:48 | XMS_ITS | Encounter Summary ---
:1940 Author Organization [place] Address [address] [place] [address] Care Team Providers Name Role Phone Clinic, [facility] Primary Care Provider [phone] Reason for Visit Reason Onset Date Comments Referral 05/21/2018 Encounter Details Date Type Department Care Team Description 05/21/2018 [facility] Cindy Taylor, platen drier operator Tram [address] [address] Social History Tobacco Use Types [...] 05/21/2018 4:03 PM CDT Pt referred to [facility] via fax by Marija Ramirez MD for known AAA increased in size to 4.4X4.6 cm- pt has known about AAA for past 55 years and has monitored it with annual US. US done on 05/17/18 in care everywhere from [facility]. Pt needs to be scheduled for consult with Dr. Lewis. Will route to scheduling to coordinate an appointment within the next week. SHASTA Chand, RN documented in this encounter Plan of Treatment Not on filedocumented as of this encounter Visit Diagnoses Not on filedocumented in this encounter Care Teams Solution Director Relationship Specialty Start Date End Date [facility], [facility] PCP - General 05/12/[address] [place] [address] documented as of this encounter
--- OUTSIDE RECORDS SUMMARY | 2022-06-05 13:48 | XMS_ITS | Encounter Summary ---
:1940 Author Organization [place] Address [address] [place] [address] Care Team Providers Name Role Phone Clinic, [facility] Primary Care Provider [phone] Reason for Visit CV Testing - Closed Specialty Diagnoses / Procedures Referred By Contact Refer red To Contact Cardiology Diagnoses Transient cerebral ischemia, unspecified type Luis Antonio Quintanilla MD Rh Echo cc Procedures ECHO COMPLETE BUBBLE STUDY WITH OPTISON Echo Complete Bubble [address] [address] [place] [address] [address] [place] [address] Phone: Fax: Referral ID Status Reason Start Date Expiration Date Visits Requ ested Visits Authorized [id number] Closed 11/16/2017 11/16/2018 1 1 Encounter Details Date Type Department Care Team Description 11/17/2017 Hospital Encounter [facility] [place] Luis Antonio Quintanilla [facility] MD P[place] ischemia, unspecified [facility] [address] type [address] [place], [place] [address] [address] [place], [place] [phone] [address] (Work) [phone] Social History Tobacco Use Types Packs/Day Years [...] Sig Dispensed Refills Start Date End Date apixaban ANTICOAGULANT Take 1 tablet (2.5 60 tablet 1 11/15 (ELIQUIS) 2.5 MG mg) by mouth 2 tabletIndications: times daily Transient cerebral ischemia, unspecified type atorvastatin (LIPITOR) 40 Take 1 tablet (40 30 tablet 0 MG tabletIndications: mg) by mouth daily Hyperlipidemia LDL goal <70, Acute left-sided low back pain without sciatica Acetaminophen (TYLENOL PO) Take 500 mg by [...] Re sults for this BUBBLE STUDY WITH BANKER [facility]ON ischemia, procedure are in OPTISON unspecified type the results section. documented in this encounter Results ECHO COMPLETE BUBBLE STUDY WITH OPTISON (11/17/2017 2:35 PM BANKER MASON) Anatomical Region Laterality Modality Echocardiography Specimen (Source) Anatomical Collection Method Collection Time Re ceived Time Location / / Volume Laterality 11/17/2017 1:54 PM BANKER MASON Narrative 11/17/2017 3:15 PM BANKER MASON [id number]^ARNAUD^LUIS ANTONIO^PIPPA [facility] Echocardiography Laboratory [address] [place] [address] Name: SPEEDY MCDUFFIE : 1940 Study Date: 11/17/2017 01:54 PM Age: 77 yrs Gender: Male [place] [facility] [place] For Study: , Transient cerebral i [...] Normal pulmonic valve. There is no pulmo ajmey valvular regurgitation. There is no pulmonic valvular [...] note might be different from the original. [id number]^ARNAUD^LUIS ANTONIO^PIPPA [facility] Echocardiography Laboratory [address] [place] [address] Name: SPEEDY MCDUFFIE : 1940 Study Date: 11/17/2017 01:54 PM Age: 77 yrs Gender: Male [place] [facility] [place] Reason For Study: , Transient cerebral i [...] to 2mL with Given 11/17/2017 2:45 PM BANKER MASON 3 mLs saline (OPTISON) diluted injection 3 mL 3 mL, Intravenous, ONCE, On Thu11/17/17 at 1445, For 1 dose, [facility] [id number] sodium chloride (PF) 0.9% PF flush 10 mL Given 11/17/2017 2:37 PM BANKER MASON 10 mLs 10 mL, Intravenous, ONCE, On Thu11/17/17 at 1445, For 1 dose sodium chloride bacteriostatic 0.9 % flush 30 Given 2:37 PM BANKER MASON 30 mLs mL 30 mL, Intravenous, ONCE, On Thu11/17/17 at 1445, For 1 dose documented in this encounter Care Teams Systems Technician Relationship Specialty Start Date End Date [facility], [facility] PCP - General 05/12/[address] [place] [address] documented as of this encounter
--- OUTSIDE RECORDS SUMMARY | 2022-06-05 13:48 | XMS_ITS | Encounter Summary ---
:1940 Author Organization [place] Address [address] [facility] [place] [address] Care Team Providers Name Role Phone Clinic, [facility] Primary Care Provider [phone] Reason for Visit Auth/Cert Specialty Diagnoses / Procedures Referred By Contact Refer red To Contact Surgery Diagnoses ABDOMINAL AORTIC ANEURYSM Periop Services Procedures ENDOVASCULAR REPAIR ANEURYSM ABDOMINAL AORTA [address], [address] [place] [address] Phone: Referral ID Status Reason Start Date Expiration Date Visits Requ ested Visits Authorized [id number] 1 1 Encounter Details Date Type Department Care Team Description 09/28/2018 Surgery [facility] Juan Vásquez FEMORAL [place] PeriOP MD Elijah CUTDOWN WITH ANGIOGRAM Services [address] [place] [address] [place] [address] [phone] Surgery Details Date/Time Status Location OR Service [...] Comments Blood Pressure 146/79 09/28/2018 3:00 PM MEDICAL SERVICES ASSISTANT Pulse 60 09/28/2018 11:21 AM MEDICAL SERVICES ASSISTANT Temperature 36.5 ??C (97.7 ??F) 09/28/2018 3:00 PM MEDICAL SERVICES ASSISTANT Respiratory Rate 9 09/28/2018 3:50 PM MEDICAL SERVICES ASSISTANT Oxygen Saturation 94% 09/28/2018 3:50 PM MEDICAL SERVICES ASSISTANT Inhaled Oxygen Concentration - - Weight 84.8 kg (187 lb) 09/28/2018 11:21 AM MEDICAL SERVICES ASSISTANT Height 170.2 cm (5' 7) 09/28/2018 11:21 AM MEDICAL SERVICES ASSISTANT Body Mass Index 29.41 09/28/2018 11:21 AM MEDICAL SERVICES ASSISTANT documented in this encounter Discharge Summaries Juan [...] MD MT: RIO Name: SPEEDY MCDUFFIE Account: [id number] : 1940 Admit Date: 09/28/2018 Discharge Date: 09/29/2018 Document: [id number] cc: Primary CAL SERVICES ASSISTANT documented in this encounter Medications at [...] Levi MD - 09/29/2018 9:32 AM CST [facility] Vascular Medicine Progress Note Date of Service [...] aorta. Exchange was made for a 6 Qatari vascular sheath. 18-gauge singlewall needle was then advanced into the left common femoral artery through which a 0.035 inch Bentson wire was advanced in the abdominal aorta. Exchange is made for a 6 Qatari vascular sheath. Via the left groin access, a 5 Qatari pigtail catheter was advanced over the Bentson wire into the abdominal aorta. Via the right groin, a 5 Qatari pigtail catheter was advanced over the Bentson [...] concerns during business hours M-F, call the [facility] at [phone] to have the rounding/supervisor erection shop Vascular Medicine (NOT VASCULAR SURGERY) paged. - After business hours M-F,??for medical concerns on this patient, please page hospitalist staff. - For vascular surgical questions, please page the appropriate surgeon (primary vascular surgeon or supervisor erection shop vascular surgeon) based upon the time of day. Lambert Fontanez PA-C Zoltan Londono MD - 09/29/2018 8:19 AM CST [facility] Vascular Surgery Progress Note Assessment & Plan [...] concerns during business hours M-F, call the [facility] Vascular [facility] at [phone] to have the rounding/supervisor erection shop Vascular Medicine (NOT VASCULAR SURGERY) MD paged. - After business hours M-,??for medical concerns on this patient, please page hospitalist staff. - For vascular surgical questions, please page the appropriate surgeon (primary vascular surgeon or supervisor erection shop vascular surgeon) based upon the time of day. Brandie Barrera PA-C Michelle Jones - 09/28/2018 10:42 AM CST Admission medication history interview status for the 09/28/2018 admission is complete. See [facility] admission navigator for prior to admission medications Medication history source reliability:Good Medication history interview source(s):Patient Medication history resources (including written lists, pill bottles, clinic record):Patient mailed in his medication list prior to surgery Primary pharmacy.[facility] Additional medication history information not noted on MATERIAL DISPATCHER med list :None Time spent in this [...] at HS Yes Unknown, Entered By History CAL SERVICES ASSISTANT documented in this encounter Procedure Notes Jacqui [...] for procedural details. Provider name: Jacqui Odom Chemical Tank Worker(s):None CAL SERVICES ASSISTANT documented in this encounter Consult Notes Carrie [...] 1978. 2. Cervical fusion, Dr. Donahue at [facility] 02/18/2006. 3. Hardware removal and matrixectomy, right great toe, 09/30/2012. 4. Lumbar fusion 10/1996, L5-S1. 5. Lumbar fusion 1999, L4. 6. 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 7. Laparoscopic appendectomy, 01/2009. SOCIAL HISTORY: The patient is . He has 2 children. 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 He quit smoking [id number] after a 1/4 pack per day use [...] MD MT: JACKSON Name: SPEEDY MCDUFFIE Account: [id number] : 1940 Consult Date: 09/28/2018 Document: [id number] CAL SERVICES ASSISTANT documented in this encounter Miscellaneous Notes Op [...] MD MT: JACKSON Name: SPEEDY MCDUFFIE Account: [id number] : 1940 Procedure Date: 09/28/2018 Document: [id number] CAL SERVICES ASSISTANT Plan of Care - Griselda Dinero RN [...] will continue to follow up with this. CAL SERVICES ASSISTANT Provider Notification - Levi Hollingsworth MD - 09/29/2018 12:46 AM MEDICAL SERVICES ASSISTANT Brief update: Paged re: request for home melatonin 10 mg melatonin HS PRN added. Levi Hollingsworth MD 12:47 AM CAL SERVICES ASSISTANT Plan of Care - Ira South RN - 09/28/2018 11:11 PM CST A&O, VSS, Lung sounds clear, Bowel sounds active,adeqaute urine output, incision right & letgroin CDI Ambulates assist 1, Regular diet, tolerating liquids with poor appetite. Pain controlled by scheduled tylenol and PRN oxycodone. CAL SERVICES ASSISTANT Plan of Care - Vandana Smith RN - 09/28/2018 7:22 PM CST Pt is came from PACU.Groin site dressing clean dry and intact.Not void yet.Ice pack given.IVF running .will monitor. CAL SERVICES ASSISTANT documented in this encounter Plan of Treatment Not on filedocumented as of this encounter Procedures Procedure Name Priority Date/Time Associated Comments Diagnosis CTA CHEST WITH Routine 09/29/2018 11:38 Results f or this CONTRAST AM MEDICAL SERVICES ASSISTANT procedure are i n the results section. BASIC METABOLIC PANEL Timed 09/29/2018 10:06 AAA (abdominal Results for this AM MEDICAL SERVICES ASSISTANT aortic aneurysm) procedure a re in (H) the results section. GLUCOSE BY METER Routine 09/29/2018 6:00 AM AAA (abdominal Res ults for this MEDICAL SERVICES ASSISTANT aortic aneurysm) procedure a re in (H) the results section. ANGIOGRAM Routine 09/28/2018 2:39 PM MEDICAL SERVICES ASSISTANT IR ABDOMINAL Routine 09/28/2018 2:17 PM AAA (abdominal Results for this ENDOVASCULAR STENT MEDICAL SERVICES ASSISTANT aortic aneurysm) proce dure are in GRAFT (H) the results section. EKG 12-LEAD, TRACING STAT 09/28/2018 11:42 Res ults for this ONLY AM MEDICAL SERVICES ASSISTANT procedure are i n the results section. XR CHEST 1 VIEW STAT 09/28/2018 11:21 Results for this AM MEDICAL SERVICES ASSISTANT procedure are i n the results section. BLOOD COMPONENT Routine 09/28/2018 11:11 AAA (abdominal Result s for this AM MEDICAL SERVICES ASSISTANT aortic aneurysm) procedure a re in (H) the results section. BLOOD COMPONENT Routine 09/28/2018 11:11 AAA (abdominal Result s for this AM MEDICAL SERVICES ASSISTANT aortic aneurysm) procedure a re in (H) the results section. POTASSIUM STAT 09/28/2018 11:11 AAA (abdominal Results f or this AM MEDICAL SERVICES ASSISTANT aortic aneurysm) procedure a re in (H) the results section. LIPID PROFILE STAT 09/28/2018 11:11 AAA (abdominal Results for this AM MEDICAL SERVICES ASSISTANT aortic aneurysm) procedure a re in (H) the results section. HEMOGLOBIN A1C STAT 09/28/2018 11:11 AAA (abdominal Results for this AM MEDICAL SERVICES ASSISTANT aortic aneurysm) procedure a re in (H) the results section. CREATININE STAT 09/28/2018 11:11 AAA (abdominal Results f or this AM MEDICAL SERVICES ASSISTANT aortic aneurysm) procedure a re in (H) the results section. ABO/RH TYPE AND STAT 09/28/2018 11:11 AAA (abdominal Result s for this SCREEN AM MEDICAL SERVICES ASSISTANT aortic aneurysm) procedure a re in (H) the results section. LAB RESULT - HIM SCAN 09/24/2018 12:00 AM MEDICAL SERVICES ASSISTANT EKG CARDIAC - HIM 09/24/2018 12:00 SCAN AM MEDICAL SERVICES ASSISTANT documented in this encounter Results CTA Chest with Contrast (09/29/2018 11:38 AM MEDICAL SERVICES ASSISTANT) Anatomical Region Laterality Modality Chest, SUBRAD IR PROCEDURE, UMP CT CTA, RAD CT Computed Tomography Specimen (Source) Anatomical Location Collection Method / Collectio n Time Received Time / Laterality Volume Impressions 09/29/2018 4:30 PM MEDICAL SERVICES ASSISTANT IMPRESSION: Tortuous descending thoracic aorta with bilobed aneurysmal dilatation measuring up to 50 mm in diameter in the distal descending aorta. JACQUI ODOM MD Narrative 09/29/2018 4:30 PM MEDICAL SERVICES ASSISTANT PROCEDURE: CTA of the chest DATE OF [...] ORDERABLES Basic metabolic panel (09/29/2018 10:06 AM MEDICAL SERVICES ASSISTANT) [facility] Method Time Signature Sodium 141 133 - 144 09/29/2018 [place] mmol/L 10:[address] [facility] Potassium 4.5 3.4 - 5.3 09/29/2018 [place] mmol/L 10:31 AM [facility] Chloride 109 94 - 109 09/29/2018 [place] mmol/L 10:31 AM [facility] Carbon Dioxide 25 20 - 32 09/29/2018 [place] mmol/L 10:31 AM [facility] Anion Gap 7 3 - 14 09/29/2018 [place] mmol/L 10:31 AM [facility] Glucose 97 70 - 99 09/29/2018 [place] mg/dL 10:31 AM [facility] Urea Nitrogen 18 7 - 30 09/29/2018 [place] mg/dL 10:31 AM [facility] Creatinine 1.25 0.66 - 09/29/2018 [place] 1.25 10:31 AM [facility] GFR Estimate Not Calculated >60 09/29/2018 [place] mL/min/1. 10:[address] GFR Estimate Not Calculated >60 09/29/2018 [place] If Black mL/min/1. 10:[address] Calcium 8.8 8.5 - 09/29/2018 [place] 10.1 10:31 AM [facility] mg/dL [facility] Specimen Anatomical Collection Method Collection Time Receive d Time (Source) Location / / Volume Laterality Blood specimen 09/29/2018 10:06 8 (specimen) AM MEDICAL SERVICES ASSISTANT 10:07 AM MEDICAL SERVICES ASSISTANT Pam Conde PA-C LAB - BLOOD ORDERABLES Performing Organization Address City/State/ZIP Code Phon e Number M [facility] [address] [address] [phone] [facility] [address] [address], [facility] [phone] (ABNORMAL) Glucose by meter (09/29/2018 6:00 AM MEDICAL SERVICES ASSISTANT) P athologist Signature Glucose 109 (H) 70 - 99 09/29/2018 [facility] mg/dL 6:18 AM MEDICAL SERVICES ASSISTANT TEST, GLUCOSE Specimen Anatomical Collection Method Collection Time Receive d Time (Source) Location / / Volume Laterality 09/29/2018 6:00 AM 8 6:18 MEDICAL SERVICES ASSISTANT AM MEDICAL SERVICES ASSISTANT Juan Vásquez MD LAB - CAROLYN POCT Performing Organization Address City/State/ZIP Code Phon e Number [facility] POINT OF CARE TEST, GLUCOSE POINT OF CARE TEST, GLUCOSE IR Abdominal Endovascular Stent Graft (09/28/2018 2:17 PM MEDICAL SERVICES ASSISTANT) Anatomical Region Laterality Modality Abdomen/Pelvis Radio Fluoroscopy Specimen (Source) Anatomical Location Collection Method / Collectio n Time Received Time / Laterality Volume Impressions 09/29/2018 8:52 AM MEDICAL SERVICES ASSISTANT Impression: 1. Thoracic and abdominal angiography de monstrating previously unknown thoracic aortic aneurysm as well as the known abdominal aortic aneurysm 2. Endovascular aneurysm repair was abor clover to allow for further investigation of the thoracic aortic ane urysm and future surgical planning. JACQUI ODOM MD Narrative 09/29/2018 8:52 AM MEDICAL SERVICES ASSISTANT PROCEDURE(S): 1. Thoracic and abdominal aortic angiogr [...] aneurysm repair. A timeout was performed per [facility] rsal protocol policy to confirm the [...] aorta. Exchange was made for a 6 Qatari vascula r sheath. 18-gauge singlewall needle was then advanced into the left c ommon femoral artery through which a 0.035 inch Bentson wire was adva nced in the abdominal aorta. Exchange is made for a 6 Qatari vascular sheath. Via the left groin access, a 5 Qatari pigtail catheter was advanced over the Bentson wire into the abdominal aorta. Via the right groin, a 5 Qatari pigtail catheter was advanced over the Bentson [...] repair. A timeout was performed per [facility] protocol policy to confirm the correct patient, site and pr ocedure to be performed. Please note that due to the complex natu re of the procedure, a multi-disciplinary approach was used [facility] involved Mili Vásquez and Lei functioning as co-surgeons for t his procedure. Bilateral common femoral arteries were s urgically exposed, see separate operative report for details. A n 18-gauge singlewall needle was then inserted into the right common femoral artery through which a 0.035 inch Bentson wire was advanced int o the abdominal aorta. Exchange was made for a 6 Qatari vascula r sheath. 18-gauge singlewall needle was then advanced into the left c ommon femoral artery through which a 0.035 inch Bentson wire was adva nced in the abdominal aorta. Exchange is made for a 6 Qatari vascular sheath. Via the left groin access, a 5 Qatari pigtail catheter was advanced over the Bentson wire into the abdominal aorta. Via the right groin, a 5 Qatari pigtail catheter was advanced over the Bentson [...] EKG 12-lead, tracing only (09/28/2018 11:42 AM MEDICAL SERVICES ASSISTANT) [facility] Method Time Signature Interpretation ECG Click View RADIOLOGY Image link RESULTS to view waveform and result Specimen (Source) Anatomical Collection Method Collection Time Re ceived Time Location / / Volume Laterality 09/28/2018 11:42 AM MEDICAL SERVICES ASSISTANT Juan Vásquez MD ECG ORDERABLES Performing Organization Address City/State/ZIP Code Phon e Number RADIOLOGY RESULTS XR Chest 1 View (09/28/2018 11:21 AM MEDICAL SERVICES ASSISTANT) Anatomical Region Laterality Modality Chest Digital Radiography Specimen (Source) Anatomical Location Collection Method / Collectio n Time Received Time / Laterality Volume Impressions 09/28/2018 1:09 PM MEDICAL SERVICES ASSISTANT IMPRESSION: Heart size similar to prior. The thoracic aorta is elongated. No airspace consolidation or pneumothorax. There appears to be a small right pleural effusion. ELAINA HUNTLEY MD Narrative 09/28/2018 1:09 PM MEDICAL SERVICES ASSISTANT CHEST ONE VIEW ??09/28/2018 11:21 AM HISTORY: [...] ORDER BRAYDEN Blood component (09/28/2018 11:11 AM MEDICAL SERVICES ASSISTANT) [facility] Method Time Signature Unit Number [id number] 09/28/2018 [facility] 1:21 PM [facility] Blood Red Blood 09/28/2018 [facility] Component Cells 1:[address] [facility] HOSPITAL Reduced Division 00 09/28/2018 [facility] Number 1:21 PM [facility] Status of No longer 10/02/2018 [facility] Unit available 3:00 AM [facility] 10/02/2018 HOSPITAL 0300 Blood Product [id number] 09/28/2018 [facility] Code 1:21 [address] MEDICAL SERVICES ASS[address] [facility] Unit Status [facility] Specimen Anatomical Collection Method Collection Time Receive d Time (Source) Location / / Volume Laterality 09/28/2018 11:11 09/28/2018 AM MEDICAL SERVICES ASSISTANT 11:44 AM MEDICAL SERVICES ASSISTANT Juan Vásquez MD LABORATORY Performing Organization Address City/State/ZIP Code Phon e Number M [facility] [address] [place], [place] [address] [facility] [address] [address], [facility] [address] [place], [place] [address], [facility] [phone] Blood component (09/28/2018 11:11 AM MEDICAL SERVICES ASSISTANT) [facility] gist Method Time Signature Unit Number [id number] 09/28/2018 [facility] 1:21 PM [facility] Blood Red Blood 09/28/2018 [place] Component Cells 1:21 PM [facility] Reduced Division 00 09/28/2018 [facility] Number 1:21 PM [facility] Status of No longer 10/02/2018 [facility] Unit available 3:00 AM [facility] 10/02/2018 HOSPITAL 0300 Blood Product [id number] 09/28/2018 [facility] Code 1:21 PM [facility] Unit Status [facility] Specimen Anatomical Collection Method Collection Time Receive d Time (Source) Location / / Volume Laterality 09/28/2018 11:11 09/28/2018 AM MEDICAL SERVICES ASSISTANT 11:44 AM MEDICAL SERVICES ASSISTANT Juan Vásquez MD LABORATORY Performing Organization Address City/State/ZIP Code Phon e Number M [facility] [address] [place], [place] [address] [facility] [address] [address], [facility] [address] [place], [place] [address], [facility] [phone] Potassium (09/28/2018 11:11 AM MEDICAL SERVICES ASSISTANT) athologist Signature Potassium 4.0 3.4 - 5.3 09/28/2018 [place] mmol/L 12:22 PM [facility] Specimen Anatomical Collection Method Collection Time Receive d Time (Source) Location / / Volume Laterality Blood specimen 09/28/2018 11:11 8 (specimen) AM MEDICAL SERVICES ASSISTANT 11:43 AM MEDICAL SERVICES ASSISTANT Ramiro Card MD LAB - BLOOD ORDERABLES Performing Organization Address City/State/ZIP Code Phon e Number M [facility] [address] [place] [address] [facility] [address] [place] [address], [place] [phone] Lipid panel (09/28/2018 11:11 AM MEDICAL SERVICES ASSISTANT) Analysis Performed At Patho logist Time Signature Cholesterol 143 <200 mg/dL 09/28/2018 [place] 12:22 PM [facility] Triglycerides 115 <150 mg/dL 09/28/2018 [facility] 12:24 PM [facility] HDL Cholesterol 68 >39 mg/dL 09/28/2018 [facility] 12:24 PM [facility] LDL Cholesterol 52 <100 mg/dL 09/28/2018 [facility] Calculated 12:24 PM [facility] Comment: Desirable: <100 mg/dl Non HDL Cholesterol 75 <130 mg/dL 09/28/2018 12:24 PM [facility] Specimen Anatomical Collection Method Collection Time Receive d Time (Source) Location / / Volume Laterality Blood specimen 09/28/2018 11:11 8 (specimen) AM MEDICAL SERVICES ASSISTANT 11:43 AM MEDICAL SERVICES ASSISTANT Juan Vásquez MD LAB - BLOOD ORDERABLES Performing Organization Address City/State/ZIP Code Phon e Number M [facility] [address] [place] [address] [facility] [address] [place] [address], [place] [phone] (ABNORMAL) ABO/Rh type and screen (09/28/2018 11:11 AM MEDICAL SERVICES ASSISTANT) Component Value Ref Test Analysis Performed At Patholo gist Range Method Time Signature Units Ordered 2 09/28/2018 [facility] 11:54 AM [facility] ABO O 09/28/2018 [facility] 12:28 PM [facility] RH(D) Pos [facility] Antibody Screen Pos (A) 09/28/2018 [facility] 12:28 PM [facility] Test Valid Only [place] 09/28/2018 [facility] At [facility] 11:47 AM [facility] Specimen Expires 10/01/2018 09/28/2018 [facility] 11:47 AM [facility] Crossmatch Red Blood Cells 09/28/2018 [facility] 11:54 AM [facility] Blood Bank Delay in availability of Red Blood Cells called to 09/28/2018 [facility] Comment Esme in Preop at 1228 re 12:37 PM [facility] Antibody ANTI-Rosa 09/28/2018 [facility] Identification 1:26 PM [facility] Antigen Type Rosa Negative 09/28/2018 [facility] 1:26 PM [facility] Specimen Anatomical Collection Method Collection Time Receive d Time (Source) Location / / Volume Laterality Blood specimen 09/28/2018 11:11 8 (specimen) AM MEDICAL SERVICES ASSISTANT 11:44 AM MEDICAL SERVICES ASSISTANT Juan Vásquez MD LAB - BLOOD BANK TEST ORDER Performing Organization Address City/State/ZIP Code Phon e Number M [facility] [address] [address] [phone] [facility] [address] [address], [facility] [phone] (ABNORMAL) Hemoglobin A1c (09/28/2018 11:11 AM MEDICAL SERVICES ASSISTANT) P athologist Signature Hemoglobin A1C 5.7 (H) 0 - 5.6 % 09/28/2018 [facility] 12:08 PM [facility] Comment: Normal <5.7% Prediabetes 5.7-6.4% ??Diab etes 6.5% or higher - adopted from ADA consensus guidelines. Specimen Anatomical Collection Method Collection Time Receive d Time (Source) Location / / Volume Laterality Blood specimen 09/28/2018 11:11 8 (specimen) AM MEDICAL SERVICES ASSISTANT 11:43 AM MEDICAL SERVICES ASSISTANT Juan Vásquez MD LAB - BLOOD ORDERABLES Performing Organization Address City/State/ZIP Code Phon e Number M [facility] [address] [address] [phone] [facility] [address] [address], [place] [phone] (ABNORMAL) Creatinine (09/28/2018 11:11 AM MEDICAL SERVICES ASSISTANT) P athologist Signature Creatinine 1.46 (H) 0.66 - 09/28/2018 [place] 1.25 mg/dL 12:22 PM [facility] GFR Estimate 47 (L) >60 09/28/2018 [place] mL/min/1.7 12:[address] Comment: Non GFR Calc GFR Estimate If 57 (L) >60 mL/min/1.7m2 09/28/2018 12:22 PM [facility] Comment: GFR Calc Specimen Anatomical Collection Method Collection Time Receive d Time (Source) Location / / Volume Laterality Blood specimen 09/28/2018 11:11 8 (specimen) AM MEDICAL SERVICES ASSISTANT 11:43 AM MEDICAL SERVICES ASSISTANT Juan Vásquez MD LAB - BLOOD ORDERABLES Performing Organization Address City/State/ZIP Code Phon e Number [facility] [address] [address] [phone] [facility] [address] [address], [place] [phone] LAB RESULT - HIM SCAN (09/24/2018 12:00 AM MEDICAL SERVICES ASSISTANT) Specimen (Source) Anatomical Location Collection Method / Collectio n Time Received Time / Laterality Volume 09/24/2018 Narrative This result has an attachment that is no t available. Provider Outside NON-BEAKER LAB TESTING EKG CARDIAC - HIM SCAN (09/24/2018 12:00 AM MEDICAL SERVICES ASSISTANT) Specimen (Source) Anatomical Location Collection Method / [...] (TYLENOL) tablet 975 Given 09/29/2018 5:41 AM MEDICAL SERVICES ASSISTANT 975 mg mg 975 mg, Oral, EVERY 8 HOURS, First dose on Thu09/28/18 at 2200, For 3 days, Do not use if patient has an active opioid/acetaminophen combined analgesic product ordered for pain. Maximum acetaminophen dose from all sources = 75 mg/kg/day not to exceed 4 grams/day., Post-procedure Given 09/28/2018 9:50 PM MEDICAL SERVICES ASSISTANT 975 mg atorvastatin (LIPITOR) tablet 40 mg Given 09/28/2018 9:50 PM MEDICAL SERVICES ASSISTANT 40 mg 40 mg, Oral, EVERY EVENING, First dose on Thu09/28/18 at 2000 heparin 10,000 units in 1000 mL 0.9% Given 09/28/2018 1:37 PM CS T 1,000 mLs sodium chloride PRN, Starting on Thu09/28/18 at 1335, Intra-procedure Given 09/28/2018 1:36 PM MEDICAL SERVICES ASSISTANT 1,000 mLs Given 09/28/2018 1:35 PM MEDICAL SERVICES ASSISTANT 1,000 mLs lactated ringers infusion New Bag 09/29/2018 2:48 AM MEDICAL SERVICES ASSISTANT 125 mL/hr at 125 mL/hr, Intravenous, CONTINUOUS, NOT for patient on renal dialysis. Saline lock after 1 liter if taking PO fluids., Post-procedure, Starting on Thu09/28/18 at 1800, Until Thu09/29/18 at 1753 Rate/Dose Verify 09/29/2018 12:39 AM MEDICAL SERVICES ASSISTANT 125 mL/hr New Bag 09/28/2018 6:31 PM MEDICAL SERVICES ASSISTANT 125 mL/hr lisinopril (PRINIVIL/ZESTRIL) tablet 5 m g Given 09/29/2018 8:21 AM MEDICAL SERVICES ASSISTANT 5 mg 5 mg, Oral, 2 TIMES DAILY, First dose on Thu09/28/18 at 2100 Given 09/28/2018 9:52 PM MEDICAL SERVICES ASSISTANT 5 mg melatonin tablet 10 mg Given 09/29/2018 2:48 AM MEDICAL SERVICES ASSISTANT 10 mg 10 mg, Oral, AT BEDTIME PRN, sleep, Starting on Thu09/29/18 at 0044 metoprolol tartrate (LOPRESSOR) tablet 5 0 mg Given 09/29/2018 8:21 AM MEDICAL SERVICES ASSISTANT 50 mg 50 mg, Oral, 2 TIMES DAILY, First dose on Thu09/28/18 at 2100 Given 09/28/2018 9:50 PM MEDICAL SERVICES ASSISTANT 50 mg oxyCODONE (ROXICODONE) tablet 5 mg Given 09/28/2018 10:49 PM MEDICAL SERVICES ASSISTANT 5 mg 5 mg, Oral, EVERY 3 HOURS PRN, other, pain control or improvement in physical function. Hold dose for analgesic side effects., Starting on Thu09/28/18 at 1751, Notify provider to assess for uncontrolled pain or analgesic side effects. Hold while on [employer]ATIONS COORDINATOR or with regular IV opioid dosing. Maximum total is 40 mg in 24 hours., Post-procedure sodium chloride (PF) 0.9% PF flush 3 mL Given 09/28/2018 9:58 PM MEDICAL SERVICES ASSISTANT 3 mLs 3 mL, Intracatheter, EVERY 8 HOURS, First dose on Thu09/28/18 at 2200, And Q1H PRN, to lock peripheral IV dormant line., Post-procedure terazosin (HYTRIN) capsule 5 mg Given 09/28/2018 10:49 PM MEDICAL SERVICES ASSISTANT 5 mg 5 mg, Oral, AT BEDTIME, First dose on Thu09/28/18 at 2200 documented in this encounter Active and Recently Administered Medications Times are shown in MEDICAL SERVICES ASSISTANT. Scheduled Medication Order 09/27/2018 09/28/2018 09/29/2018 acetaminophen [...] Volume Adjustment - Provider: Mattie Marmolejo APRN [employer])1432 (Anesthesia Volume Adjustment - Provider: Mattie Marmolejo APRN [employer]) at 25 mL/hr, Intravenous, CONTINUOUS, IF patient [...] Provider: Juan Vásquez MD)1336 (Given - Provider: Jaun Vásquez MD)1337 (Given - Provider: Juan Vásquez [...] response., Post-procedure oxyCODONE (ROXICODONE) tablet 5 mg 4557 (Given - Provider: Ira South, JOSE) 5 mg, Oral, EVERY 3 HOURS PRN, other, pa in control or improvement in physical function. Hold dose for analgesic side effects., Starting Thu09/28/18 at 1751, Notify provider to assess for uncontrolled p ain or analgesic side effects. Hold whil e on [employer] RELATIONS COORDINATOR or with regular IV opioid dosing. Maximum total is 40 mg in 24 hours., Post-procedure sodium chloride (PF) 0.9% PF flush 3 mL 3 mL, Intracatheter, EVERY 1 HOUR PRN, l ine flush, for peripheral IV flush post IV meds, Starting Thu09/28/18 at 1751, Post-procedure documented in this encounter Care Teams Technical Implementation Lead Relationship Specialty Start Date End Date Clinic, [facility] PCP - General 05/12/[address] [place] [id number] documented as of this encounter
--- OUTSIDE RECORDS SUMMARY | 2022-06-05 13:48 | XMS_ITS | Encounter Summary ---
:1940 Author Organization [place] Address [facility] [place] [address] Care Team Providers Name Role Phone Clinic, [facility] Primary Care Provider Reason for Visit Auth/Cert Specialty Diagnoses / Procedures Referred By Contact Refer red To Contact Surgery Diagnoses ABDOMINAL AORTIC ANEURYSM Sh Periop Services Procedures ENDOVASCULAR REPAIR ANEURYSM ABDOMINAL AORTA [address] [place] [address] Phone: Referral ID Status Reason Start Date Expiration Date Visits Requ ested Visits Authorized [id number] 1 1 Encounter Details Date Type Department Care Team Description [facility] [address] [place] [id number] AAA (abdominal 09/29/2018 Encounter Carrie Abdi MD [address] [place] [id number] aortic aneurysm) Intermediate Care (H) [address] [...] Comments Blood Pressure 135/74 09/29/2018 11:18 AM WAITER/WAITRESS CAFETERIA Pulse 48 09/29/2018 11:18 AM WAITER/WAITRESS CAFETERIA Temperature 36.5 ??C (97.7 ??F) 09/29/2018 11:18 AM WAITER/WAITRESS CAFETERIA Respiratory Rate 16 09/29/2018 11:18 AM WAITER/WAITRESS CAFETERIA Oxygen Saturation 95% 09/29/2018 11:18 AM WAITER/WAITRESS CAFETERIA Inhaled Oxygen Concentration - - Weight 85.2 kg (187 lb 12.8 oz) 09/29/2018 5:00 AM WAITER/WAITRESS CAFETERIA Height 170.2 cm (5' 7) 09/28/2018 11:21 AM WAITER/WAITRESS CAFETERIA Body Mass Index 29.41 09/28/2018 11:21 AM WAITER/WAITRESS CAFETERIA documented in this encounter Discharge Summaries Juan [...] MD MT: RIO Name: SPEEDY MCDUFFIE Account: [id number] : 1940 Admit Date: 09/28/2018 Discharge Date: 09/29/2018 Document: [id number] cc: Primary ER/WAITRESS CAFETERIA documented in this encounter Medications at Time [...] Levi MD - 09/29/2018 9:32 AM CST [facility] Vascular Medicine Progress Note Date [...] aorta. Exchange was made for a 6 Malaysian vascular sheath. 18-gauge singlewall needle was then advanced into the left common femoral artery through which a 0.035 inch Bentson wire was advanced in the abdominal aorta. Exchange is made for a 6 Malaysian vascular sheath. Via the left groin access, a 5 Malaysian pigtail catheter was advanced over the Bentson wire into the abdominal aorta. Via the right groin, a 5 Malaysian pigtail catheter was advanced over the Bentson [...] concerns during business hours M-F, call the [facility] at [phone] to have the rounding/contact lens lathe operator Vascular Medicine (NOT VASCULAR SURGERY) MD paged. - After business hours M-F,??for medical concerns on this patient, please page hospitalist staff. - For vascular surgical questions, please page the appropriate surgeon (primary vascular surgeon or contact lens lathe operator vascular surgeon) based upon the time of day. Lambert Fontanez PA-C Zoltan Londono MD - 09/29/2018 8:19 AM CST [facility] Vascular Surgery Progress Note Assessment & [...] concerns during business hours M-F, call the [facility] Vascular [facility] at [phone] to have the rounding/contact lens lathe operator Vascular Medicine (NOT VASCULAR SURGERY) MD paged. - After business hours M-F,??for medical concerns on this patient, please page hospitalist staff. - For vascular surgical questions, please page the appropriate surgeon (primary vascular surgeon or contact lens lathe operator vascular surgeon) based upon the time [...] his medication list prior to surgery Primary pharmacy.[facility] Additional medication history information not noted on ACCOUNTING ANALYST med list :None Time spent in this [...] at HS Yes Unknown, Entered By History ER/WAITRESS CAFETERIA documented in this encounter Procedure Notes Jacqui [...] for procedural details. Provider name: Jacqui Odom Lumber Driver(s):None ER/WAITRESS CAFETERIA documented in this encounter Consult Notes Carrie [...] in his throat. PENICILLINS cause a rash. [facility] has an unspecified allergy associated with its use. PREVIOUS MEDICAL HISTORY: 1. Hyperlipidemia. 2. Hypertension. 3. Contact dermatitis. 4. AAA. 5. Colonic polyps. 6. Lumbar spinal stenosis. 7. Impaired fasting glucose. 8. Stage III chronic kidney disease. 9. Paroxysmal atrial fibrillation. PREVIOUS SURGICAL HISTORY: 1. Cervical fusion C7, December 1978. 2. Cervical fusion, Dr. Donahue at [facility] 02/18/2006. 3. Hardware removal and matrixectomy, right great toe, 09/30/2012. 4. Lumbar fusion 10/1996, L5-S1. 5. Lumbar fusion 1999, L4. 6. 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 7. Laparoscopic appendectomy, 01/2009. SOCIAL HISTORY: The patient is . He has 2 children. 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 He quit smoking [id number] after a 1/4 pack per day use [...] MD MT: JACKSON Name: SPEEDY MCDUFFIE Account: [id number] : 1940 Consult Date: 09/28/2018 Document: [id number] ER/WAITRESS CAFETERIA documented in this encounter Miscellaneous Notes Op [...] MD MT: JACKSON Name: SPEEDY MCDUFFIE Account: [id number] : 1940 Procedure Date: 09/28/2018 Document: [id number] ER/WAITRESS CAFETERIA Plan of Care - Griselda Dinero RN [...] will continue to follow up with this. ER/WAITRESS CAFETERIA Provider Notification - Levi Hollingsworth MD - 09/29/2018 12:46 AM WAITER/WAITRESS CAFETERIA Brief update: Paged re: request for home melatonin 10 mg melatonin HS PRN added. Levi Hollingsworth MD 12:47 AM ER/WAITRESS CAFETERIA Plan of Care - Ira South RN - 09/28/2018 11:11 PM CST A&O, VSS, Lung sounds clear, Bowel sounds active,adeqaute urine output, incision right & letgroin CDI Ambulates assist 1, Regular diet, tolerating liquids with poor appetite. Pain controlled by scheduled tylenol and PRN oxycodone. ER/WAITRESS CAFETERIA Plan of Care - Vandana Smith RN - 09/28/2018 7:22 PM CST Pt is came from PACU.Groin site dressing clean dry and intact.Not void yet.Ice pack given.IVF running .will monitor. ER/WAITRESS CAFETERIA documented in this encounter Plan of Treatment Not on filedocumented as of this encounter Procedures Procedure Name Priority Date/Time Associated Comments Diagnosis CTA CHEST WITH Routine 09/29/2018 11:38 Results f or this CONTRAST AM WAITER/WAITRESS CAFETERIA procedure are i n the results section. BASIC METABOLIC PANEL Timed 09/29/2018 10:06 AAA (abdominal Results for this AM WAITER/WAITRESS CAFETERIA aortic aneurysm) procedure a re in (H) the results section. GLUCOSE BY METER Routine 09/29/2018 6:00 AM AAA (abdominal Res ults for this WAITER/WAITRESS CAFETERIA aortic aneurysm) procedure a re in (H) the results section. ANGIOGRAM Routine 09/28/2018 2:39 PM WAITER/WAITRESS CAFETERIA IR ABDOMINAL Routine 09/28/2018 2:17 PM AAA (abdominal Results for this ENDOVASCULAR STENT WAITER/WAITRESS CAFETERIA aortic aneurysm) proce dure are in GRAFT (H) the results section. EKG 12-LEAD, TRACING STAT 09/28/2018 11:42 Res ults for this ONLY AM WAITER/WAITRESS CAFETERIA procedure are i n the results section. XR CHEST 1 VIEW STAT 09/28/2018 11:21 Results for this AM WAITER/WAITRESS CAFETERIA procedure are i n the results section. BLOOD COMPONENT Routine 09/28/2018 11:11 AAA (abdominal Result s for this AM WAITER/WAITRESS CAFETERIA aortic aneurysm) procedure a re in (H) the results section. BLOOD COMPONENT Routine 09/28/2018 11:11 AAA (abdominal Result s for this AM WAITER/WAITRESS CAFETERIA aortic aneurysm) procedure a re in (H) the results section. POTASSIUM STAT 09/28/2018 11:11 AAA (abdominal Results f or this AM WAITER/WAITRESS CAFETERIA aortic aneurysm) procedure a re in (H) the results section. LIPID PROFILE STAT 09/28/2018 11:11 AAA (abdominal Results for this AM WAITER/WAITRESS CAFETERIA aortic aneurysm) procedure a re in (H) the results section. HEMOGLOBIN A1C STAT 09/28/2018 11:11 AAA (abdominal Results for this AM WAITER/WAITRESS CAFETERIA aortic aneurysm) procedure a re in (H) the results section. CREATININE STAT 09/28/2018 11:11 AAA (abdominal Results f or this AM WAITER/WAITRESS CAFETERIA aortic aneurysm) procedure a re in (H) the results section. ABO/RH TYPE AND STAT 09/28/2018 11:11 AAA (abdominal Result s for this SCREEN AM WAITER/WAITRESS CAFETERIA aortic aneurysm) procedure a re in (H) the results section. LAB RESULT - HIM SCAN 09/24/2018 12:00 AM WAITER/WAITRESS CAFETERIA EKG CARDIAC - HIM 09/24/2018 12:00 SCAN AM WAITER/WAITRESS CAFETERIA documented in this encounter Results CTA Chest with Contrast (09/29/2018 11:38 AM WAITER/WAITRESS CAFETERIA) Anatomical Region Laterality Modality Chest, SUBRAD IR PROCEDURE, UMP CT CTA, RAD CT Computed Tomography Specimen (Source) Anatomical Location Collection Method / Collectio n Time Received Time / Laterality Volume Impressions 09/29/2018 4:30 PM WAITER/WAITRESS CAFETERIA IMPRESSION: Tortuous descending thoracic aorta with bilobed aneurysmal dilatation measuring up to 50 mm in diameter in the distal descending aorta. JACQUI ODOM MD Narrative 09/29/2018 4:30 PM WAITER/WAITRESS CAFETERIA PROCEDURE: CTA of the chest DATE OF [...] ORDERABLES Basic metabolic panel (09/29/2018 10:06 AM WAITER/WAITRESS CAFETERIA) [facility] Time Signature Sodium 141 133 - 144 09/29/2018 [facility] mmol/L 10:31 AM [facility] Potassium 4.5 3.4 - 5.3 09/29/2018 [facility] mmol/L 10:31 AM [facility] Chloride 109 94 - 109 09/29/2018 [facility] mmol/L 10:31 AM [facility] Carbon Dioxide 25 20 - 32 09/29/2018 [place] mmol/L 10:31 AM [facility] Anion Gap 7 3 - 14 09/29/2018 [place] mmol/L 10:31 AM [facility] Glucose 97 70 - 99 09/29/2018 [place] mg/dL 10:31 AM [facility] Urea Nitrogen 18 7 - 30 09/29/2018 [place] mg/dL 10:31 AM [facility] Creatinine 1.25 0.66 - 09/29/2018 [place] 1.25 10:31 AM [facility] mg/[facility] GFR Estimate Not Calculated >60 09/29/2018 [place] mL/min/1. 10:[address] GFR Estimate Not Calculated >60 09/29/2018 [place] If Black mL/min/1. 10:[address] Calcium 8.8 8.5 - 09/29/2018 [place] 10.1 10:31 AM [facility] mg/dL [facility] Specimen Anatomical Collection Method Collection Time Receive d Time (Source) Location / / Volume Laterality Blood specimen 09/29/2018 10:06 8 (specimen) AM WAITER/WAITRESS CAFETERIA 10:07 AM WAITER/WAITRESS CAFETERIA Pam Conde PA-C LAB - BLOOD ORDERABLES Performing Organization Address City/State/ZIP Code Phon e Number M [facility] [address] [place] [address] [phone] [facility] [address] [place] [address], [facility] [phone] (ABNORMAL) Glucose by meter (09/29/2018 6:00 AM WAITER/WAITRESS CAFETERIA) P athologist Signature Glucose 109 (H) 70 - 99 09/29/2018 [facility] mg/dL 6:18 AM WAITER/WAITRESS CAFETERIA TEST, GLUCOSE Specimen Anatomical Collection Method Collection Time Receive d Time (Source) Location / / Volume Laterality 09/29/2018 6:00 AM 8 6:18 WAITER/WAITRESS CAFETERIA AM WAITER/WAITRESS CAFETERIA Juan Vásquez MD LAB - BEAKER POCT Performing Organization Address City/State/ZIP Code Phon e Number [facility] POINT OF CARE TEST, GLUCOSE POINT OF CARE TEST, GLUCOSE IR Abdominal Endovascular Stent Graft (09/28/2018 2:17 PM WAITER/WAITRESS CAFETERIA) Anatomical Region Laterality Modality Abdomen/Pelvis Radio Fluoroscopy Specimen (Source) Anatomical Location Collection Method / Collectio n Time Received Time / Laterality Volume Impressions 09/29/2018 8:52 AM WAITER/WAITRESS CAFETERIA Impression: 1. Thoracic and abdominal angiography de monstrating previously unknown thoracic aortic aneurysm as well as the known abdominal aortic aneurysm 2. Endovascular aneurysm repair was abor clover to allow for further investigation of the thoracic aortic ane urysm and future surgical planning. JACQUI ODOM MD Narrative 09/29/2018 8:52 AM WAITER/WAITRESS CAFETERIA PROCEDURE(S): 1. Thoracic and abdominal aortic angiogr [...] aneurysm repair. A timeout was performed per [facility] protocol policy to confirm the correct patient, [...] aorta. Exchange was made for a 6 Malaysian vascula r sheath. 18-gauge singlewall needle was then advanced into the left c ommon femoral artery through which a 0.035 inch Bentson wire was adva nced in the abdominal aorta. Exchange is made for a 6 Malaysian vascular sheath. Via the left groin access, a 5 Malaysian pigtail catheter was advanced over the Bentson wire into the abdominal aorta. Via the right groin, a 5 Malaysian pigtail catheter was advanced over the Bentson [...] aneurysm repair. A timeout was performed per [facility] protocol policy to confirm the correct patient, site and pr ocedure to be performed. Please note that due to the complex natu re of the procedure, a multi-disciplinary approach was used [facility] involved Mili Vásquez and Lei functioning as co-surgeons for t his procedure. Bilateral common femoral arteries were s urgically exposed, see separate operative report for details. A n 18-gauge singlewall needle was then inserted into the right common femoral artery through which a 0.035 inch Bentson wire was advanced int o the abdominal aorta. Exchange was made for a 6 Malaysian vascula r sheath. 18-gauge singlewall needle was then advanced into the left c ommon femoral artery through which a 0.035 inch Bentson wire was adva nced in the abdominal aorta. Exchange is made for a 6 Malaysian vascular sheath. Via the left groin access, a 5 Malaysian pigtail catheter was advanced over the Bentson wire into the abdominal aorta. Via the right groin, a 5 Malaysian pigtail catheter was advanced over the Bentson [...] EKG 12-lead, tracing only (09/28/2018 11:42 AM WAITER/WAITRESS CAFETERIA) [facility] Method Time Signature Interpretation ECG Click View RADIOLOGY Image link RESULTS to view waveform and result Specimen (Source) Anatomical Collection Method Collection Time Re ceived Time Location / / Volume Laterality 09/28/2018 11:42 AM WAITER/WAITRESS CAFETERIA Juan Vásquez MD ECG ORDERABLES Performing Organization Address City/State/ZIP Code Phon e Number RADIOLOGY RESULTS XR Chest 1 View (09/28/2018 11:21 AM WAITER/WAITRESS CAFETERIA) Anatomical Region Laterality Modality Chest Digital Radiography Specimen (Source) Anatomical Location Collection Method / Collectio n Time Received Time / Laterality Volume Impressions 09/28/2018 1:09 PM WAITER/WAITRESS CAFETERIA IMPRESSION: Heart size similar to prior. The thoracic aorta is elongated. No airspace consolidation or pneumothorax. There appears to be a small right pleural effusion. ELAINA HUNTLEY MD Narrative 09/28/2018 1:09 PM WAITER/WAITRESS CAFETERIA CHEST ONE VIEW ??09/28/2018 11:21 AM HISTORY: [...] ORDER BRAYDEN Blood component (09/28/2018 11:11 AM WAITER/WAITRESS CAFETERIA) [facility] Method Time Signature Unit Number [id number] 09/28/2018 [facility] 1:21 PM [facility] Blood Red Blood 09/28/2018 [facility] Component Cells 1:21 PM [facility] Reduced Division 00 09/28/2018 [facility] Number 1:21 PM [facility] Status of No longer 10/02/2018 [facility] Unit available 3:[address] [facility] 10/02/2018 HOSPITAL 0300 Blood Product [id number] 09/28/2018 [facility] Code 1:21 PM [facility] Unit Status [facility] Specimen Anatomical Collection Method Collection Time Receive d Time (Source) Location / / Volume Laterality 09/28/2018 11:11 09/28/2018 AM WAITER/WAITRESS CAFETERIA 11:44 AM WAITER/WAITRESS CAFETERIA Juan Vásquez MD LABORATORY Performing Organization Address City/State/ZIP Code Phon e Number M [facility] [address] [place], [place] [address] [facility] [address] [place] [address], [facility] [address] [place] [address], [facility] [phone] Blood component (09/28/2018 11:11 AM WAITER/WAITRESS CAFETERIA) Patholo gist Method Time Signature Unit Number [id number] 09/28/2018 [facility] 1:21 PM WAITER/WAITRESS CAFETERIA [facility] Blood Red Blood 09/28/2018 [facility] Component Cells 1:21 PM WAITER/WAITRESS CAFETERIA [facility] Reduced Division 00 09/28/2018 [facility] Number 1:21 PM [facility] Status of No longer 10/02/2018 [facility] Unit available 3:[address] [facility] 10/02/2018 HOSPITAL 0300 Blood Product [id number] 09/28/2018 [facility] Code 1:21 PM [facility] Unit Status [facility] Specimen Anatomical Collection Method Collection Time Receive d Time (Source) Location / / Volume Laterality 09/28/2018 11:11 09/28/2018 AM WAITER/WAITRESS CAFETERIA 11:44 AM WAITER/WAITRESS CAFETERIA Juan Vásquez MD LABORATORY Performing Organization Address City/State/ZIP Code Phon e Number M [facility] [address] [place], [place] [address] [facility] [address] [place] [address], [facility] [phone] [facility] [address] [place], [place] [address], [facility] [phone] Potassium (09/28/2018 11:11 AM WAITER/WAITRESS CAFETERIA) P athologist Signature Potassium 4.0 3.4 - 5.3 09/28/2018 [place] mmol/L 12:22 PM WAITER/WAITRESS CAFETERIA [facility] Specimen Anatomical Collection Method Collection Time Receive d Time (Source) Location / / Volume Laterality Blood specimen 09/28/2018 11:11 12/11/201 8 (specimen) AM WAITER/WAITRESS CAFETERIA 11:43 AM WAITER/WAITRESS CAFETERIA Ramiro Card MD LAB - BLOOD ORDERABLES Performing Organization Address City/State/ZIP Code Phon e Number M [facility] [address] [place] [address] [facility] [address] [place] [address], [place] [phone] Lipid panel (09/28/2018 11:11 AM WAITER/WAITRESS CAFETERIA) Analysis Performed At [facility] logist Time Signature Cholesterol 143 <200 mg/dL 09/28/2018 [facility] 12:22 PM [facility] Triglycerides 115 <150 mg/dL 09/28/2018 [facility] 12:24 PM [facility] HDL Cholesterol 68 >39 mg/dL 09/28/2018 [facility] 12:24 PM [facility] LDL Cholesterol 52 <100 mg/dL 09/28/2018 [facility] Calculated 12:24 PM [facility] Comment: Desirable: <100 mg/dl Non HDL Cholesterol 75 <130 mg/dL 09/28/2018 12:24 PM [facility] Specimen Anatomical Collection Method Collection Time Receive d Time (Source) Location / / Volume Laterality Blood specimen 09/28/2018 11:11 8 (specimen) AM WAITER/WAITRESS CAFETERIA 11:43 AM WAITER/WAITRESS CAFETERIA Juan Vásquez MD LAB - BLOOD ORDERABLES Performing Organization Address City/State/ZIP Code Phon e Number [facility] [address] [place] [address] [facility] [address] [place] [address], [place] [phone] (ABNORMAL) ABO/Rh type and screen (09/28/2018 11:11 AM WAITER/WAITRESS CAFETERIA) Component Value Ref Test Analysis Performed At [facility] gist Range Method Time Signature Units Ordered 2 09/28/2018 [facility] 11:54 AM [facility] ABO O 09/28/2018 [facility] 12:28 PM [facility] RH(D) Pos [facility] Antibody Screen Pos (A) 09/28/2018 [facility] 12:28 PM [facility] Test Valid Only [place] 09/28/2018 [facility] 11:47 AM [facility] Specimen Expires 10/01/2018 09/28/2018 [facility] 11:47 AM [facility] Crossmatch Red Blood Cells 09/28/2018 [facility] 11:54 AM [facility] Blood Bank Delay in availability of Red Blood Cells called to 09/28/2018 [facility] Comment sEme in Preop at 1228 re 12:37 PM [facility] Antibody ANTI-[place] 09/28/2018 [facility] Identification 1:26 PM [facility] Antigen Type [place] Negative 09/28/2018 [facility] 1:26 PM [facility] Specimen Anatomical Collection Method Collection Time Receive d Time (Source) Location / / Volume Laterality Blood specimen 09/28/2018 11:11 8 (specimen) AM WAITER/WAITRESS CAFETERIA 11:44 AM WAITER/WAITRESS CAFETERIA Juan Vásquez MD LAB - BLOOD BANK TEST ORDER Performing Organization Address City/State/ZIP Code Phon e Number [facility] [address] [address] [facility] [address] [place] [address], [place] [phone] (ABNORMAL) Hemoglobin A1c (09/28/2018 11:11 AM WAITER/WAITRESS CAFETERIA) P athologist Signature Hemoglobin A1C 5.7 (H) 0 - 5.6 % 09/28/2018 [facility] 12:08 PM [facility] Comment: Normal <5.7% Prediabetes 5.7-6.4% ??Diab etes 6.5% or higher - adopted from ADA consensus guidelines. Specimen Anatomical Collection Method Collection Time Receive d Time (Source) Location / / Volume Laterality Blood specimen 09/28/2018 11:11 8 (specimen) AM WAITER/WAITRESS CAFETERIA 11:43 AM WAITER/WAITRESS CAFETERIA Juan Vásquez MD LAB - BLOOD ORDERABLES Performing Organization Address City/State/ZIP Code Phon e Number [facility] [address] [address] [facility] [address] [place] [address], [place] [phone] (ABNORMAL) Creatinine (09/28/2018 11:11 AM WAITER/WAITRESS CAFETERIA) P athologist Signature Creatinine 1.46 (H) 0.66 - 09/28/2018 [place] 1.25 mg/dL 12:22 PM [facility] GFR Estimate 47 (L) >60 09/28/2018 [place] mL/min/1.7 12:[address] Comment: Non GFR Calc GFR Estimate If 57 (L) >60 mL/min/1.7m2 09/28/2018 12:22 PM [facility] Comment: GFR Calc Specimen Anatomical Collection Method Collection Time Receive d Time (Source) Location / / Volume Laterality Blood specimen 09/28/2018 11:11 8 (specimen) AM WAITER/WAITRESS CAFETERIA 11:43 AM WAITER/WAITRESS CAFETERIA Juan Vásquez MD LAB - BLOOD ORDERABLES Performing Organization Address City/State/ZIP Code Phon e Number [facility] [address] [address] [phone] [facility] [address] [address], [place] [phone] LAB RESULT - HIM SCAN (09/24/2018 12:00 AM WAITER/WAITRESS CAFETERIA) Specimen (Source) Anatomical Location Collection Method / Collectio n Time Received Time / Laterality Volume 09/24/2018 Narrative This result has an attachment that is no t available. Provider Outside NON-BEAKER LAB TESTING EKG CARDIAC - HIM SCAN (09/24/2018 12:00 AM WAITER/WAITRESS CAFETERIA) Specimen (Source) Anatomical Location Collection Method / [...] (TYLENOL) tablet 975 Given 09/29/2018 5:41 AM WAITER/WAITRESS CAFETERIA 975 mg mg 975 mg, Oral, EVERY 8 HOURS, First dose on Thu09/28/18 at 2200, For 3 days, Do not use if patient has an active opioid/acetaminophen combined analgesic product ordered for pain. Maximum acetaminophen dose from all sources = 75 mg/kg/day not to exceed 4 grams/day., Post-procedure Given 09/28/2018 9:50 PM WAITER/WAITRESS CAFETERIA 975 mg apixaban ANTICOAGULANT (ELIQUIS) tablet 2.5 Given 09/29/2018 8:22 AM WAITER/WAITRESS CAFETERIA 2.5 mg mg 2.5 mg, Oral, 2 TIMES DAILY, First dose on Thu09/29/18 at 0900 atorvastatin (LIPITOR) tablet 40 mg Given 09/28/2018 9:50 PM WAITER/WAITRESS CAFETERIA 40 mg 40 mg, Oral, EVERY EVENING, First dose on Thu09/28/18 at 2000 ceFAZolin (ANCEF) intermittent infusion Given 09/29/2018 5:4 1 AM WAITER/WAITRESS CAFETERIA 2 g 200 mL/hr 2 g in 100 mL dextrose PRE-MIX Routine, 2 g, Intravenous, EVERY 8 HOURS, First dose on Thu09/28/18 at 2100, For 2 doses, Indications: Perioperative Pharmacoprophylaxis, Post-procedure Given 09/28/2018 9:55 PM WAITER/WAITRESS CAFETERIA 2 g 200 mL/hr fentaNYL (PF) (SUBLIMAZE) injection 100 mcg Given 09/28/2018 12:07 PM WAITER/WAITRESS CAFETERIA 50 mcg 100 mcg, Intravenous, ONCE, On Thu09/28/18 at 1100, For 1 dose, For ordered IV doses 1-100 mcg give IV Push undiluted over a minimum of 3-5 minutes. fentaNYL (PF) (SUBLIMAZE) injection 25-5 0 mcg Given 09/28/2018 4:04 PM WAITER/WAITRESS CAFETERIA 25 mcg 25-50 mcg, Intravenous, EVERY 2 [...] 3-5 minutes., PACU Given 09/28/2018 3:50 PM WAITER/WAITRESS CAFETERIA 25 mcg Given 09/28/2018 3:41 PM WAITER/WAITRESS CAFETERIA 25 mcg hydrALAZINE (APRESOLINE) injection 2.5-5 mg Given 09/28/2018 4:10 PM WAITER/WAITRESS CAFETERIA 5 mg 2.5-5 mg, Intravenous, EVERY 10 [...] solution 80 mL Given 09/29/2018 11:37 AM WAITER/WAITRESS CAFETERIA 80 mLs 80 mL, Intravenous, ONCE, On Thu09/29/18 at 1130, For 1 dose lactated ringers infusion New Bag 09/28/2018 12:16 PM WAITER/WAITRESS CAFETERIA 25 mL/hr at 25 mL/hr, Intravenous, CONTINUOUS, IF patient NOT on dialysis., Pre-procedure, Starting on Thu09/28/18 at 1115, Until Thu09/28/18 at 1457 lactated ringers infusion New Bag 09/29/2018 2:48 AM WAITER/WAITRESS CAFETERIA 125 mL/hr at 125 mL/hr, Intravenous, CONTINUOUS, NOT for patient on renal dialysis. Saline lock after 1 liter if taking PO fluids., Post-procedure, Starting on Thu09/28/18 at 1800, Until Thu09/29/18 at 1753 Rate/Dose Verify 09/29/2018 12:39 AM WAITER/WAITRESS CAFETERIA 125 mL/hr New Bag 09/28/2018 6:31 PM WAITER/WAITRESS CAFETERIA 125 mL/hr lidocaine 1 % 1 mL Given 09/28/2018 12:00 PM WAITER/WAITRESS CAFETERIA 0.3 mLs 1 mL, Other, EVERY 1 HOUR PRN, mild pain with VAD insertion or accessing implanted port, Starting on Thu09/28/18 at 1101, Do NOT give if patient has a history of allergy to any local anesthetic or any louie product. MAX dose 1 mL subcutaneous OR intradermal in divided doses., Pre-procedure lisinopril (PRINIVIL/ZESTRIL) tablet 5 m g Given 09/29/2018 8:21 AM WAITER/WAITRESS CAFETERIA 5 mg 5 mg, Oral, 2 TIMES DAILY, First dose on Thu09/28/18 at 2100 Given 09/28/2018 9:52 PM WAITER/WAITRESS CAFETERIA 5 mg melatonin tablet 10 mg Given 09/29/2018 2:48 AM WAITER/WAITRESS CAFETERIA 10 mg 10 mg, Oral, AT BEDTIME PRN, sleep, Starting on Thu09/29/18 at 0044 metoprolol tartrate (LOPRESSOR) tablet 5 0 mg Given 09/29/2018 8:21 AM WAITER/WAITRESS CAFETERIA 50 mg 50 mg, Oral, 2 TIMES DAILY, First dose on Thu09/28/18 at 2100 Given 09/28/2018 9:50 PM WAITER/WAITRESS CAFETERIA 50 mg midazolam (VERSED) injection 2 mg Given 09/28/2018 12:10 PM WAITER/WAITRESS CAFETERIA 1 mg 2 mg, Intravenous, ONCE, On Thu09/28/18 at 1100, For 1 dose, For ordered IV doses 0.1-2.5 mg give IV Push slowly titrated over a minimum of 2 minutes. Dilute each 1mg in 4mL of NS. Given 09/28/2018 12:07 PM WAITER/WAITRESS CAFETERIA 1 mg oxyCODONE (ROXICODONE) tablet 5 mg Given 09/28/2018 10:49 PM WAITER/WAITRESS CAFETERIA 5 mg 5 mg, Oral, EVERY 3 HOURS PRN, other, pain control or improvement in physical function. Hold dose for analgesic side effects., Starting on Thu09/28/18 at 1751, Notify provider to assess for uncontrolled pain or analgesic side effects. Hold while on FLUSH TESTER or with regular IV opioid dosing. Maximum total is 40 mg in 24 hours., Post-procedure Saline flush Given 09/29/2018 11:37 AM WAITER/WAITRESS CAFETERIA 80 mLs Intravenous, 80 mL, ONCE, On Thu09/29/18 at 1130, For 1 dose sodium chloride (PF) 0.9% PF flush 3 mL Given 09/28/2018 9:58 PM WAITER/WAITRESS CAFETERIA 3 mLs 3 mL, Intracatheter, EVERY 8 HOURS, First dose on Thu09/28/18 at 2200, And Q1H PRN, to lock peripheral IV dormant line., Post-procedure terazosin (HYTRIN) capsule 5 mg Given 09/28/2018 10:49 PM WAITER/WAITRESS CAFETERIA 5 mg 5 mg, Oral, AT BEDTIME, First dose on Thu09/28/18 at 2200 documented in this encounter Active and Recently Administered Medications Times are shown in WAITER/WAITRESS CAFETERIA. Scheduled Medication Order 09/27/2018 09/28/2018 09/29/2018 acetaminophen [...] RN)[id number] (Given - Provider: Mattie Marmolejo APRN ORDER SCHEDULE CLERK) 900 mg, Intravenous, PRE-OP/PRE-PROCEDUR E, Starting Thu09/28/18 [...] Volume Adjustment - Provider: Mattie Marmolejo APRN ORDER SCHEDULE CLERK)1432 (Anesthesia Volume Adjustment - Provider: Mattie Marmolejo APRN ORDER SCHEDULE CLERK) at 25 mL/hr, Intravenous, CONTINUOUS, IF patient [...] analgesic side effects. Hold whil e on FLUSH TESTER or with regular IV opioid dosing. Maximum total is 40 mg in 24 hours., Post-procedure sodium chloride (PF) 0.9% PF flush 3 mL 3 mL, Intracatheter, EVERY 1 HOUR PRN, l ine flush, for peripheral IV flush post IV meds, Starting Thu09/28/18 at 1751, Post-procedure documented in this encounter Care Teams Lease Purchase Driver Relationship Specialty Start Date End Date [facility], [facility] PCP - General 05/12/[address] [place] [address] documented as of this encounter
--- OUTSIDE RECORDS SUMMARY | 2022-06-05 13:48 | XMS_ITS | Encounter Summary ---
:1940 Author Organization [place] Address [facility] [place] [address] Care Team Providers Name Role Phone Clinic, [facility] Primary Care Provider [phone] Reason for Visit Reason Onset Date Comments Appointment 06/18/2018 Encounter Details Date Type Department Care Team Description 06/18/2018 Telephone [facility] Juan Delcid MD Appointment Clinic [place] [address] [place] [address] [place] [address] [phone] Social History Tobacco Use Types Packs/Day Years [...] only with Dr. Lewis on 07/01/18 in [place]. Pt had no further questions at this [...] on filedocumented in this encounter Care Teams Product Safety Coordinator Relationship Specialty Start Date End Date Bandar, Kehinde Portillofield PCP - General 05/12/[address] [place] [address] documented as of this encounter
--- OUTSIDE RECORDS SUMMARY | 2022-06-05 13:48 | XMS_ITS | Encounter Summary ---
:1940 Author Organization [place] Address [facility] [place] [address] Care Team Providers Name Role Phone [facility], [facility] Primary Care Provider [phone] Reason for Referral - Closed Specialty Diagnoses / Procedures Referred By Contact Refer red To Contact Diagnoses Paroxysmal atrial fibrillation (H) Radha Galan MD Procedures Zio Patch Monitor [address] [place] [address] Referral ID Status Reason Start Date Expiration Date Visits Requ ested Visits Authorized [id number] Closed 11/25/2017 11/25/2018 1 1 TATION OPERATOR AUTOMATIC Reason for Visit Reason Comments Atrial Fib new Dx - Closed Specialty Diagnoses / Procedures Referred By Contact Refer red To Contact Diagnoses Paroxysmal atrial fibrillation (H) Radha Galan MD [address] [place] [address] Referral ID Status Reason Start Date Expiration Date Visits Requ ested Visits Authorized [id number] Closed 06/11/2017 06/11/2018 1 1 Encounter Details Date Type Department Care Team Description 11/11/2017 Office Visit [facility] Radha Galan [facility]ys [facility] Tram WELSH fibrillation (H) [address] [facility] [address] [place] [address] [place] [address] [phone] Social History Tobacco Use Types Packs/Day Years [...] Comments Blood Pressure 146/78 11/11/2017 8:56 AM SUBSTATION OPERATOR AUTOMATIC Pulse 54 11/11/2017 8:56 AM SUBSTATION OPERATOR AUTOMATIC Temperature - - Respiratory Rate - - Oxygen Saturation - - Inhaled Oxygen Concentration - - Weight 88 kg (194 lb) 11/11/2017 8:56 AM SUBSTATION OPERATOR AUTOMATIC Height 170.2 cm (5' 7.01) 11/11/2017 8:56 AM SUBSTATION OPERATOR AUTOMATIC Body Mass Index 30.38 11/11/2017 8:56 AM SUBSTATION OPERATOR AUTOMATIC documented in this encounter Progress Notes Radha [...] discharged on amiodarone and did see a steward/stewardess second class over at [facility] for followup. He was recommended to wear a 24-hour Holter monitoring which demonstrated no evidence of atrial tachyarrhythmias. The patient checked his blood pressure twice a day and noticed heart rate in the 50s. He is doing quite well otherwise. Denies any shortness of breath, orthopnea, PND. His blood pressureseemed to be difficult to control and has seen a certified pathology assistant for that as well as for [...] to see us in a year in [facility] to his convenience, as the patient does live in that area. We will notify the patient regarding results of the Zio Patch monitor and have him follow up with you or my partners in a year from now. RADHA GALAN MD MT: SEMAJ Name: SPEEDY HENDRICKS Account: [id number] : 1940 Service Date: 11/11/2017 Document: [id number] TATION OPERATOR AUTOMATIC Radha Galan MD - 11/11/2017 8:45 AM CST HPI and Plan: See dictation [id number] Orders Placed This Encounter Procedures ??? EKG [...] Galan, MD [address] [place] [address] TATION OPERATOR AUTOMATIC documented in this encounter Plan of Treatment Not on filedocumented as of this encounter Procedures Procedure Name Priority Date/Time Associated Diagnosis Comme nts EKG 12-LEAD Routine 11/12/2017 10:13 Paroxysmal atrial Result s for this COMPLETE W/READ - AM SUBSTATION OPERATOR AUTOMATIC fibrillation (H) proced ure are in CLINICS the results section. documented in this encounter Results Zio Patch Monitor (11/22/2017) Narrative [facility] - 11/22/2017 [facility] [address] [facility] [address] [facility] [address] 11/17/2017 Patient: ??Speedy Hendricks Chart: [id number] : ??1940 Age: ??77 year old Sex: ??male Procedure: ??ZioPatch Monitor. Dry Boss performing hook-up: ??Kiarra Rubalcava Radha Gamboa MD CV CARDIAC SERVICES ORDERABL ES Performing Organization Address City/State/ZIP Code Phon e Number [facility] EKG 12-lead complete w/read - Clinics (performed today) (11/12/2017 10:13 AM SUBSTATION OPERATOR AUTOMATIC) Narrative This result has an attachment that is no t available. Radha Gamboa MD ECG ORDERABLES documented in this encounter Visit Diagnoses Diagnosis Paroxysmal atrial fibrillation (H) Atrial fibrillation Paroxysmal atrial fibrillation (H) Atrial fibrillation documented in this encounter Care Teams Uke Driver Relationship Specialty Start Date End Date Clinic, Kehinde Portillofield PCP - General 05/12/[address] [place] [id number] documented as of this encounter
--- OUTSIDE RECORDS SUMMARY | 2022-06-05 13:48 | XMS_ITS | Encounter Summary ---
:1940 Author Organization [place] Address [facility] [place] [address] Care Team Providers Name Role Phone Clinic, [facility] Primary Care Provider [phone] Reason for Visit Reason Comments Consult U/S done 05/17/2018 Encounter Details Date Type Department Care Team Description 06/03/[address] [facility] Juan Lewis aortic Surgery Clinic MD Elijah aneurysm (AAA) without [place] [address] rupture (H) (Primary [address]) [address] [place] [address] [place], [place] [phone] [address] (Work) [phone] Social History Tobacco Use Types Packs/Day Years [...] Primary documented in this encounter Care Teams Errand Runner Relationship Specialty Start Date End Date [facility], [facility] PCP - General 05/12/[address] [place], [place] [id number] documented as of this encounter
--- OUTSIDE RECORDS SUMMARY | 2022-06-05 13:48 | XMS_ITS | Encounter Summary ---
:1940 Author Organization [place] Address [address] [facility] [place] [address] Care Team Providers Name Role Phone Clinic, [facility] Primary Care Provider [phone] Reason for Visit Auth/Cert Specialty Diagnoses / Procedures Referred By Contact Refer red To Contact Surgery Diagnoses ABDOMINAL AORTIC ANEURYSM Sh Periop Services Procedures ENDOVASCULAR REPAIR ANEURYSM ABDOMINAL AORTA [address] [place] [address] Phone: Referral ID Status Reason Start Date Expiration Date Visits Requ ested Visits Authorized [id number] 1 1 Encounter Details Date Type Department Care Team Description 09/28/2018 Anesthesia Event [facility] Marylou Asher MD [facility] [address] [place] [id number] [facility] Mattie Monahan, INSTRUCTOR PRIVATE FIBRE CEMENT MOULDER [address] [place] [address] [address] [place] [...] Angela ts, Mattie Farrell, of Intubation: Easy; INSTRUCTOR PRIVATE FIBRE CEMENT MOULDER INSTRUCTOR PRIVATE FIBRE CEMENT MOULDER Airway Size: 8; Cuffed; Oral; Blade Type: Glidescope; Blade Size: 4; Place by: EA FIBRE CEMENT MOULDER; Insertion Attempts: 1; Secured at (cm)to lip: 23 cm; Breath Sounds: Equal, clear and bilateral; Dentition: Intact, Unchanged; Grade View of Cords: 1; Airway Adjuncts: [place] scope Urethral Catheter 09/28/18; 1315; No; 09/28/18 1315 by 09/28/18 1449 by Other (Comment) Georgette Umanzor, RN Georgette Umanzro, RN (surgeon ordered for the procedure); 16 [...] Asher MD September 28, 2018 3:11 PM EYOR HELPER ROD Anesthesia Procedure Notes - Ling Asher MD - 09/28/2018 3:10 PM SURVEYOR HELPER ROD Associated Order(s): A Line Catheter Placement ARTERIAL [...] Yes IBP within 10% of NIBP: Yes EYOR HELPER ROD Anesthesia Preprocedure Evaluation - Ling Asher MD [...] alternatives discussed with: Patient.. Ling Asher MD EYOR HELPER ROD documented in this encounter Miscellaneous Notes Anesthesia [...] APRN CRNA September 28, 2018 3:06 PM EYOR HELPER ROD documented in this encounter Plan of Treatment Not on filedocumented as of this encounter Procedures Procedure Name Priority Date/Time Associated Diagnosis Comme nts ANE A LINE CATHETER Routine 09/28/2018 3:10 PM SURVEYOR HELPER ROD PLACEMENT Procedure Note - Ritu Asher MD [...] (CLEOCIN) infusion 900 Given 09/28/2018 1:18 PM SURVEYOR HELPER ROD 900 mg mg Routine, 900 mg, Intravenous, PRE-OP/PRE-PROCEDURE, Starting on Thu09/28/18 at 1101, For 1 dose, Give first dose within 1 hour PRIOR to incision., Indications: Perioperative Pharmacoprophylaxis, Pre-procedure dexmedetomidine (PRECEDEX) 4 mcg/mL bolu s Bolus 09/28/2018 2:19 PM SURVEYOR HELPER ROD 8 mcg CONTINUOUS PRN, Starting on Thu09/28/18 at 1216, Anesthesia Intra-op Bolus 09/28/2018 1:12 PM SURVEYOR HELPER ROD 12 mcg Bolus 09/28/2018 1:02 PM SURVEYOR HELPER ROD 8 mcg ePHEDrine injection Given 09/28/2018 1:57 PM SURVEYOR HELPER ROD 5 mg PRN, Starting on Thu09/28/18 at 1345, Anesthesia Intra-op Given 09/28/2018 1:49 PM SURVEYOR HELPER ROD 5 mg Given 09/28/2018 1:45 PM SURVEYOR HELPER ROD 5 mg fentaNYL (PF) (SUBLIMAZE) injection Given 09/28/2018 1:34 PM SURVEYOR HELPER ROD 50 mcg PRN, Administer over 3-5 Minutes, Starting on Thu09/28/18 at 1302, Anesthesia Intra-op Given 09/28/2018 1:02 PM SURVEYOR HELPER ROD 50 mcg lactated ringers infusion New Bag 09/28/2018 1:11 PM SURVEYOR HELPER ROD CONTINUOUS PRN, Anesthesia Intra-op, Starting on Thu09/28/18 at 1311, Until Thu09/28/18 at 1506 lidocaine 2% injection (MDV) Given 09/28/2018 1:02 PM SURVEYOR HELPER ROD 100 mg PRN, Starting on Thu09/28/18 at 1302, Anesthesia Intra-op phenylephrine 0.2 mg/mL Rate/Dose Change 09/28/2018 2:17 0.1 mcg/kg /min 2.54 mL/hr (mcg/kg/min) drip PM SURVEYOR HELPER ROD CONTINUOUS PRN, Starting on Thu09/28/18 at 1406, Anesthesia Intra-op Rate/Dose Change 09/28/2018 2:12 PM SURVEYOR HELPER ROD 0.15 mcg/kg/min 3.82 mL/hr New Bag 09/28/2018 2:06 PM SURVEYOR HELPER ROD 0.25 mcg/kg/min 6.36 mL/hr propofol (DIPRIVAN) infusion New Bag 09/28/2018 1:11 PM 35 mcg/kg/min 17.8 mL/hr Intravenous, CONTINUOUS PRN, SURVEYOR HELPER ROD Starting on Thu09/28/18 at 1311, Anesthesia Intra-op propofol (DIPRIVAN) injection 10 mg/mL v ial Given 09/28/2018 1:02 PM SURVEYOR HELPER ROD 200 mg PRN, Starting on Thu09/28/18 at 1302, Anesthesia Intra-op rocuronium (ZEMURON) injection Given 09/28/2018 1:02 PM SURVEYOR HELPER ROD 50 mg PRN, Starting on Thu09/28/18 at 1302, Anesthesia Intra-op vecuronium (NORCURON) injection Given 09/28/2018 2:17 PM SURVEYOR HELPER ROD 2 mg PRN, Starting on Thu09/28/18 at 1334, Anesthesia Intra-op Given 09/28/2018 1:34 PM SURVEYOR HELPER ROD 2 mg documented in this encounter Care Teams Basin Tender Relationship Specialty Start Date End Date Clinic, Kehinde Portillofield PCP - General 05/12/17 [address] [id number] documented as of this encounter
--- OUTSIDE RECORDS SUMMARY | 2022-06-05 13:48 | XMS_ITS | Encounter Summary ---
:1940 Author Organization [place] Address [address] [place] [address] Care Team Providers Name Role Phone Clinic, [facility] Primary Care Provider [phone] Reason for Visit Surgical Procedure Inpatient (Routine) - Closed Specialty Diagnoses / Procedures Referred By Contact Refer red To Contact Surgery Diagnoses AAA Juan Lewis MD Saylor, Howard Leroy, Procedures *OR 51* DR. ALANIZ TO ASSIST WITH ENDOVASCULAR REPAIR OF AAA WITH [employer] GRAFT [address] [place] [address] [address] [place] [address] Phone: Fax: Referral ID Status Reason Start Date Expiration Date Visits Requ ested Visits Authorized [id number] Closed 09/28/2018 09/28/2019 1 1 Encounter Details Date Type Department Care Team Description 09/28/2018 Office Visit [facility] Juan Lewis MD [address] [place] [id number] Fellow, Sh Surg Cons Social History Tobacco [...] filedocumented in this encounter Care Teams Product Architect Relationship Specialty Start Date End Date [facility] [place] PCP - General 05/12/[address] [place] [address] documented as of this encounter
--- OUTSIDE RECORDS SUMMARY | 2022-06-05 13:48 | XMS_ITS | Encounter Summary ---
:1940 Author Organization [place] Address [address] [facility] [place] [address] Care Team Providers Name Role Phone [facility], [facility] Primary Care Provider [phone] Reason for Referral Diagnostic Imaging CT Scan - Closed Specialty Diagnoses / Procedures Referred By Contact Refer red To Contact Diagnoses Abdominal aortic aneurysm (H) Juan Lewis MD Procedures CTA Abdomen Pelvis with Contrast [address] [place] [address] Referral ID Status Reason Start Date Expiration Date Visits Requ ested Visits Authorized [id number] Closed 06/03/2018 06/03/2019 1 1 Encounter Details Date Type Department Care Team Description 06/03/2018 Orders Only [facility] Juan Lewis Abdompepe l aortic Vascular Clinic Félix Nava MD aneurysm (H) (Primary [address] ) [address] [place] [address] [place] [address] Social History Tobacco Use Types Packs/Day Years [...] pture documented in this encounter Care Teams Dance Director Relationship Specialty Start Date End Date Bandar, Kehinde Portillofield PCP - General 05/12/[address] [place] [address] documented as of this encounter
--- OUTSIDE RECORDS SUMMARY | 2022-06-05 13:48 | XMS_ITS | Encounter Summary ---
:1940 Author Organization [place] Address [facility] [place] [address] Care Team Providers Name Role Phone Clinic, [facility] Primary Care Provider [phone] Encounter Details Date Type Department Care Team Description 07/30/2018 Telephone [facility]ascular Sophie piper, Juan Nava MD Clinic [place] [address] [place] [address] [place] [address] [phone] Social History Tobacco Use Types Packs/Day Years [...] AAA WITH [employer] GRAFT Location of surgery: [facility] OR Date and time of surgery: 09/28/18 @ 12:30pm Surgeon: DR. VÁSQUEZ AND DR. ALANIZ Pre-Op Appt Date: PT TO SCHEDULE AT [facility] Post-Op Appt Date: PT TO SCHEDULE Packet sent out: YES ON 09/02/18 Pre-cert/Authorization completed: Yes Date: 09/14/18 GER PAYROLL Telephone Encounter - Aruna Simmons - 07/30/2018 4:00 PM CDT Daughter Raquel called to schedule her dad's surgery in September. I took note of the dates they would like. I am waiting on the schedule for the Interventional Radiologist that Dr. Vásquez requested. Raquel understands I will follow up with her next week. .Aruna Simmons, First Aid Instructor documented in this encounter Plan of Treatment Not on filedocumented as of this encounter Visit Diagnoses Not on filedocumented in this encounter Care Teams Malt Loader Relationship Specialty Start Date End Date Clinic, [facility] PCP - General 05/12/[address] [place] [address] documented as of this encounter
--- OUTSIDE RECORDS SUMMARY | 2022-06-05 13:48 | XMS_ITS | Encounter Summary ---
:1940 Author Organization [place] Address [address] [place] [address] Care Team Providers Name Role Phone Clinic, [facility] Primary Care Provider [phone] Reason for Referral - Closed Specialty Diagnoses / Procedures Referred By Contact Refer red To Contact Diagnoses Paroxysmal atrial fibrillation (H) Taran Lugo MD Procedures Zio Patch Monitor [address] [place] [address] Referral ID Status Reason Start Date Expiration Date Visits Requ ested Visits Authorized [id number] Closed 11/25/2017 11/25/2018 1 1 ER OUT Reason for Visit (Routine) - Closed Specialty Diagnoses / Procedures Referred By Contact Refer red To Contact Cardiology Procedures Zzrh Cardiac Test Rscc ZIOPATCH MONITOR [address] [place], [place] [address] Phone: Fax: Referral ID Status Reason Start Date Expiration Date Visits Requ ested Visits Authorized [id number] Closed 11/17/2017 11/17/2018 1 1 Encounter Details Date Type Department Care Team Description 11/17/2017 Hospital Encounter [facility] Taran Lugo Pa [facility] atrial [facility] MD fibrillation (H) [address] [employer] [address] [place], [place] [phone] Social History Tobacco Use Types Packs/Day Years [...] documented as of this encounter Progress Notes Gwendolyn Jaqui - 11/17/2017 11:59 PM CST Received a call from hospital nurse and [employer] stating that this patient's monitor fell off after 4days which [employer] did instruct him to mail in the monitor. Per [employer] and pt, pt's daughter called [facility]'s nurse and they are aware of the situation. I called pt back and he did mail the monitor yesterday. We will see what shows up and see if Brittney would like him to redo the monitor or keep what he gets from the one mailed back. ER OUT Kiarra Rubalcava - 11/17/2017 3:49 PM CST Ziopatch heart monitor was set up. Patient stated that Dr. Quintanilla ordered the event monitor but Dr. Lugo wanted him to wear a ziopatch for 14 days. Patient was then set up with a ziopatch. ER OUT documented in this encounter Plan of Treatment Not on filedocumented as of this encounter Procedures Procedure Name Priority Date/Time Associated Diagnosis Comme nts ZIO PATCH HOLTER Routine 11/22/2017 Paroxysmal atrial Result s for this fibrillation (H) procedure a re in the results section . documented in this encounter Results Zio Patch Monitor (11/22/2017) Narrative [facility] - 11/22/2017 [facility] [address] [place] [phone] 11/17/2017 Patient: ??Speedy Burris Acworth Chart: [id number] : ??1940 Age: ??77 year old Sex: ??male Procedure: ??ZioPatch Monitor. Upsetter Helper performing hook-up: ??Kiarra Rubalcava Taran Gamboa MD [facility] ORDERABL ES Performing Organization Address City/State/ZIP Code Phon e Number [facility] documented in this encounter Visit Diagnoses Diagnosis Paroxysmal atrial fibrillation (H) Atrial fibrillation documented in this encounter Care Teams Body Hanger Relationship Specialty Start Date End Date [facility], [facility] PCP - General 05/12/[address] [place], [place] [id number] documented as of this encounter
--- OUTSIDE RECORDS SUMMARY | 2022-06-05 13:48 | XMS_ITS | Encounter Summary ---
:1940 Author Organization [place] Address [address] [place] [address] Care Team Providers Name Role Phone Clinic, [facility] Primary Care Provider Reason for Referral Diagnostic Imaging CT Scan - Closed Specialty Diagnoses / Procedures Referred By Contact Refer red To Contact Diagnoses Abdominal aortic aneurysm (H) Juan Lewis MD Procedures CTA Abdomen Pelvis with Contrast [address] [place] [address] Referral ID Status Reason Start Date Expiration Date Visits Requ ested Visits Authorized [id number] Closed 06/03/2018 06/03/2019 1 1 Reason for Visit Diagnostic Imaging CT Scan - Closed Specialty Diagnoses / Procedures Referred By Contact Refer red To Contact Diagnoses Abdominal aortic aneurysm (H) Juan Lewis MD Procedures CTA Abdomen Pelvis with Contrast [address] [place] [address] Referral ID Status Reason Start Date Expiration Date Visits Requ ested Visits Authorized [id number] Closed 06/03/2018 06/03/2019 1 1 Encounter Details Date Type Department Care Team Description 06/07/2018 Hospital Encounter [facility] Juan Lewis Ab dominal aortic [facility] MD Elijah aneurysm (H) [address] [place] [address] [id number] [place] [address] [phone] Social History Tobacco Use Types Packs/Day Years [...] dose documented in this encounter Care Teams Payroll Tax Specialist Relationship Specialty Start Date End Date Kehinde Portillo PCP - General 05/12/[address] [place] [address] documented as of this encounter
--- OUTSIDE RECORDS SUMMARY | 2022-06-05 13:48 | XMS_ITS | Encounter Summary ---
:1940 Author Organization [place] Address [facility] [place] [address] Care Team Providers Name Role Phone Clinic, [facility] Primary Care Provider [phone] Reason for Visit Reason Onset Date Comments Clinic Care Coordination - Follow-up 10/01/2018 Encounter Details Date Type Department Care Team Description 10/01/[address] [facility] C are Coordination Vascular Clinic Félix Nava MD - Follow-up [address] [place] [address] [place] [address] [phone] Social History Tobacco Use Types Packs/Day Years [...] for any further questions. SHASTA Winkler, RN STRIAL ENGINEERING MANAGER Telephone Encounter - Sondra Johnson RN - [...] appointment with Dr. Lewis. SHASTA Winkler, RN STRIAL ENGINEERING MANAGER Telephone Encounter - Sondra Johnson RN - 10/01/2018 1:[address] Lewis's request, contact pt's daughter Raquel with an update on care plan. Raquel updated that Dr. Lewis will contact her on Thursday with a new plan for her dad. Raquel was in agreement with this plan. SHASTA Winkler, RN STRIAL ENGINEERING MANAGER documented in this encounter Plan of Treatment Not on filedocumented as of this encounter Visit Diagnoses Not on filedocumented in this encounter Care Teams Post Form Remover Relationship Specialty Start Date End Date Kehinde Portillofield PCP - General 05/12/[address] [place] [address] documented as of this encounter
--- OUTSIDE RECORDS SUMMARY | 2022-06-05 13:48 | XMS_ITS | Encounter Summary ---
:1940 Author Organization [place] Address [address] [place] [address] Care Team Providers Name Role Phone Clinic, [facility] Primary Care Provider [phone] Reason for Visit Reason Onset Date Comments Special Needs Nanny 11/23/2017 Encounter Details Date Type Department Care Team Description 11/23/[address] 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 Eliquis was started by Dr Quintanilla/ Eusebia FRAME RUNNER Telephone Encounter - Taran Lugo MD - [...] if he is on one. Thanks, qp FRAME RUNNER Telephone Encounter - Olive Saldana RN - 11/23/2017 2:47 PM DRAW FRAME RUNNER Call from daughterRaquel. States her dad wore a ZioPatch ordered by Dr Lugo to assess AF burden (ischemic/infarct areas seen in the brains). Daughter states the monitor was worn for 4 days (preferred2 weeks); it fell off she feels d/t the hair on his chest. Will note to Dr Lugo to advise re: havinganother placed. SueLangenbrunnerRN FRAME RUNNER documented in this encounter Plan of Treatment Not on filedocumented as of this encounter Visit Diagnoses Not on filedocumented in this encounter Care Teams Roll Tension Tester Relationship Specialty Start Date End Date [facility], [facility] PCP - General 05/12/[address] [place] [address] documented as of this encounter
--- OUTSIDE RECORDS SUMMARY | 2022-06-05 13:48 | XMS_ITS | Encounter Summary ---
:1940 Author Organization [place] Address [address] [place] [address] Care Team Providers Name Role Phone Clinic, [facility] Primary Care Provider [phone] Reason for Visit Reason Comments Transient Ischemic Attack Encounter Details Date Type Department Care Team Description 11/14/2017 [facility] brittani Stauffer MD [facility] [address] [place] [address] Transient cerebral ischemia, unspecified type (Primary Dx); 11/15/2017 Anders Jamie Bryan MD [address] [place] [address] Weakness on right side of face; Dept Uncontrolled hypertension [address] [place] [address] Social History Tobacco Use Types [...] Comments Blood Pressure 157/73 11/15/2017 11:35 AM NYLON OPERATOR Pulse 54 11/14/2017 11:13 PM NYLON OPERATOR Temperature 35.8 ??C (96.5 ??F) 11/15/2017 11:35 AM NYLON OPERATOR Respiratory Rate 18 11/15/2017 11:35 AM NYLON OPERATOR Oxygen Saturation 97% 11/15/2017 11:35 AM NYLON OPERATOR Inhaled Oxygen Concentration - - Weight 88.9 kg (196 lb) 11/15/2017 2:04 AM NYLON OPERATOR Height 177.8 cm (5' 10) 11/15/2017 2:04 AM NYLON OPERATOR Body Mass Index 28.12 11/15/2017 2:04 AM NYLON OPERATOR documented in this encounter Discharge Summaries Luis Antonio Quintanilla MD - 11/15/2017 11:18 AM CST [facility] Discharge Summary Name: Speedy Hendricks Date of : 1940 Age: [age] year old Date of Discharge: 11/15/2017 Date of Admission: 11/14/2017 Primary Care Provider: Kehinde Portillo Butler Discharge Physician: Luis Antonio Quintanilla MD Discharging [...] with NOAC. I also spoke with his Sponge Packer (Dr. Wilson) who agreed with starting lisinopril. [...] 50 Minutes. Luis Antonio Quintanilla MD Pager: [phone] N OPERATOR documented in this encounter Medications at [...] placed in patient's chart. Samantha Vergara RRT N OPERATOR documented in this encounter H&P Notes Jamie Gates MD - 11/15/2017 1:33 AM CST [facility] Hospitalist Admission Note Name: Speedy Hendricks Date [...] -permissive HTN -monitor for recurrence of symptoms -PT/OT/BALL POINT SPLITTER -bedside swallow eval by RN, ok to [...] on amiodarone that was stopped by his linen keeper last week. Continues on 81mg aspirin and metoprolol 50mg bid. AC refused by patient/family due to enlarging AAA. -continue aspirin -continue metoprolol 50mg bid 4. Hx cardiac arrest: suspected due to mscontin buildup in setting of CKD. Hospitalized at [facility] 04/2017. Has been doing quite well since. 5. AAA: enlarging and up to 4.2cm when last checked. Due for repeat US next month. Father from AAA at age 61. 6. HTN: SBP elevated here initially to 185/99 now down to 140-150s in ED without intervention. 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 Lift room needed: No. Bariatric: No Enginehouse Brakeman Needed: No Isolation: No. Infection: Not Applicable. [...] is able to stand, good equal bilateral production team member, speech clear, gcs 15, AA&Ox3. Tests Performed: [...] chloride BOLUS (0 mLs Intravenous Stopped 11/14/17 2002) iopamidol (ISOVUE-370) solution 500 mL (120 mLs Intravenous Given 11/14/17 3848) Drips infusing: No For the majority of [...] hardware foot Thoracic surgery, right lung surgery [place] teeth extraction Family History: History reviewed. No [...] Screening for cardiovascular disease. Rate 58 bpm. NH interval 184 ms. QRS duration 82 ms. [...] focal stenosis of the left P2 segment FLOOR COVERING CONTRACTOR with a small trickle of contrast extending [...] Dr. Arriaga of the radiology service from [facility] regarding patient's presentation, findings, [...] observations and the provider's statements to me. [facility] EMERGENCY DEPARTMENT Damian Mark MD 11/15/17 0149 N OPERATOR documented in this encounter Miscellaneous Notes [...] with: daughter OBSERVATION patient END time: 1210 N OPERATOR Plan of Care - Mitra Joshi OT - 11/15/2017 9:39 AM CST Problem: Patient Care Overview Goal: Plan of Care/Patient Progress Review OT: Orders received and chart reviewed. Discussed with treatment team including physical therapist. No Ip OT needs at this time. Will complete orders N OPERATOR Plan of Care - Brittany Alcantar, PT - 11/15/2017 9:23 AM CST Problem: Patient Care Overview Goal: Plan of Care/Patient Progress Review PT: Received orders for evaluation and treatment; per chart review and Obs team, no inpatient therapy needs at this time (issues have resolved). Will complete therapy orders. N OPERATOR Plan of Care - Ca Major RN - 11/15/2017 8:00 AM CST Problem: Patient Care Overview Goal: Plan of Care/Patient Progress Review PRIMARY DIAGNOSIS: TIA R/O OUTPATIENT/OBSERVATION GOALS TO BE MET BEFORE DISCHARGE: 1. Orthostatic performed: No 2. Diagnostic testing complete & at baseline neurologic testing: Yes 3. Cleared by consultants (if involved): No 4. Interpretation of cardiac rhythm per manufacturing technology professor: SR 5. Tolerating adequate PO diet and medications: Yes 6. Return to near baseline physical activity or neurologic status: Yes Gallery Director Nurse Safe discharge environment identified: Yes Barriers to discharge: Yes Entered by: Ca Major 11/15/2017 Please review provider order for any additional goals. Nurse to notify provider when observation goals have been met and patient is ready for discharge. VSS, up independent, A&Ox4, steady gait, denies dizziness, reports 5/10 headache, improved aftertylenol given wireless communications engineer, denies N/T, plan for MRI this AM, neuro consult, daughter at bedside, will continue to monitor and provide supportive cares. N OPERATOR Plan of Care - Debra Araujo RN - 11/15/2017 2:30 AM CST Problem: Patient Care Overview Goal: Plan of Care/Patient Progress Review Outcome: Improving ROOM # 226 Living Situation (if not independent, order SW consult): lives independently Facility name: appraiser personal property: daughters listed on chart Activity level at baseline: ind Activity level on admit: ind Patient registered to observation; given Patient Bill of Rights; given the opportunity to ask questions about observation status and their plan of care. Patient has been oriented to the observation room, bathroom and call light is in place. Discussed discharge goals and expectations with patient/family. N OPERATOR documented in this encounter Plan of Treatment Not on filedocumented as of this encounter Procedures Procedure Name Priority Date/Time Associated Comments Diagnosis MR BRAIN W/O & W Routine 11/15/2017 9:15 AM Resul ts for this CONTRAST NYLON OPERATOR procedure are i n the results section. BASIC METABOLIC PANEL Routine 11/15/2017 6:37 AM Weakness on r ight Results for this NYLON OPERATOR side of face procedure are i n the results section. EKG 12-LEAD, TRACING Routine 11/15/2017 2:08 AM R esults for this ONLY NYLON OPERATOR procedure are i n the results section. CT HEAD W CONTRAST STAT 11/14/2017 11:58 Resul ts for this PM NYLON OPERATOR procedure are i n the results section. CTA HEAD NECK W STAT 11/14/2017 11:53 Results for this CONTRAST PM NYLON OPERATOR procedure are i n the results section. CT HEAD W/O CONTRAST STAT 11/14/2017 11:39 Res ults for this PM NYLON OPERATOR procedure are i n the results section. CBC WITH PLATELETS & Routine 11/14/2017 11:29 Res ults for this DIFFERENTIAL PM NYLON OPERATOR procedure are i n the results section. TROPONIN I Routine 11/14/2017 11:29 Results for this PM NYLON OPERATOR procedure are i n the results section. INR Routine 11/14/2017 11:29 Results for this PM NYLON OPERATOR procedure are i n the results section. PARTIAL THROMBOPLASTIN Routine 11/14/2017 11:29 R esults for this TIME PM NYLON OPERATOR procedure are i n the results section. BASIC METABOLIC PANEL Routine 11/14/2017 11:29 Re sults for this PM NYLON OPERATOR procedure are i n the results section. EKG 12-LEAD, TRACING STAT 11/14/2017 11:22 Res ults for this ONLY PM NYLON OPERATOR procedure are i n the results section. documented in this encounter Results MRI Brain w & w/o contrast (11/15/2017 9:15 AM NYLON OPERATOR) Anatomical Region Laterality Modality Head, SUBRAD MR NEURO, UMP MR NEURO, RAD MR Magnetic Resonance Specimen (Source) Anatomical Location Collection Method / Collectio n Time Received Time / Laterality Volume Impressions 11/15/2017 9:39 AM NYLON OPERATOR IMPRESSION: ?? 1. No evidence of acute infarct, mass, h emorrhage, or herniation. 2. Moderate diffuse parenchymal volume l oss and white matter changes likely due to chronic microvascular isch emic disease without significant change since prior. KATIA DAVID MD Narrative 11/15/2017 9:39 AM NYLON OPERATOR MRI BRAIN WITHOUT AND WITH CONTRAST ??11/15/2017 [...] distorted by artifact. No evidence of ac napaimute intracranial hemorrhage. No mass effect or midline [...] distorted by artifact. No evidence of ac napaimute intracranial hemorrhage. No mass effect or midline [...] (ABNORMAL) Basic metabolic panel (11/15/2017 6:37 AM NYLON OPERATOR) Analysis Performed At Patho logist Time Signature Sodium 141 133 - 144 11/15/2017 [facility] mmol/L 7:04 AM [facility] Potassium 4.1 3.4 - 5.3 11/15/2017 [facility] mmol/L 7:04 AM [facility] Chloride 109 94 - 109 11/15/2017 [facility] mmol/L 7:04 AM [facility] Carbon Dioxide 25 20 - 32 11/15/2017 [facility] mmol/L 7:04 AM [facility] Anion Gap 7 3 - 14 11/15/2017 [facility] mmol/L 7:04 AM [facility] Glucose 105 (H) 70 - 99 11/15/2017 [facility] mg/dL 7:04 AM [facility] Urea Nitrogen 33 (H) 7 - 30 11/15/2017 [facility] mg/dL 7:04 AM [facility] Creatinine 1.51 (H) 0.66 - 11/15/2017 [facility] 1.25 mg/dL 7:04 AM [facility] GFR Estimate 45 (L) >60 11/15/2017 [facility] mL/min/1.7 7:[address] Comment: Non GFR Calc GFR Estimate If 55 (L) >60 mL/min/1.7m2 11/15/2017 7:04 A [facility] Comment: GFR Calc Calcium 8.8 8.5 - 10.1 mg/dL 11/15/2017 7:04 AM [facility] Specimen Anatomical Collection Method Collection Time Receive d Time (Source) Location / / Volume Laterality Blood specimen 11/15/2017 6:37 AM 018 6:38 (specimen) NYLON OPERATOR AM NYLON OPERATOR Jamie Gates MD LAB - BLOOD ORDERABLES Performing Organization Address City/State/ZIP Code Phon e Number [facility] [address] [address] [facility] [address] [phone] EKG 12-lead, tracing only (11/15/2017 2:08 AM NYLON OPERATOR) [facility] gist Method Time Signature Interpretation ECG Click View RADIOLOGY Image link RESULTS to view waveform and result Specimen (Source) Anatomical Collection Method Collection Time Re ceived Time Location / / Volume Laterality 11/15/2017 2:08 AM NYLON OPERATOR Jamie Gates MD ECG ORDERABLES Performing Organization Address City/[facility]/ZIP Code Phon e Number RADIOLOGY RESULTS CT Head w Contrast (11/14/2017 11:58 PM NYLON OPERATOR) Anatomical Region Laterality Modality Head, NEURO, SUBRAD CT NEURO, SUBRAD CT NEURO, UMP CT Computed Tomography NEURO, RAD CT Specimen (Source) Anatomical Location Collection Method / Collectio n Time Received Time / Laterality Volume Impressions 11/15/2017 8:18 AM NYLON OPERATOR IMPRESSION: 1. Patent arteries in the neck [...] KATIA DAVID MD Narrative 11/15/2017 8:[address] ANGIOGRAM OF THE HEAD AND NECK [...] CTA Angiogram Head Neck (11/14/2017 11:53 PM NYLON OPERATOR) Anatomical Region Laterality Modality Head, SUBRAD CT NEURO, SUBRAD CT NEURO, UMP CT NEURO, Computed Tomography RAD CT Specimen (Source) Anatomical Location Collection Method / Collectio n Time Received Time / Laterality Volume Impressions 11/15/2017 8:18 AM NYLON OPERATOR IMPRESSION: 1. Patent arteries in the neck [...] KATIA DAVID MD Narrative 11/15/2017 8:[address] ANGIOGRAM OF THE HEAD AND NECK [...] CT Head w/o Contrast (11/14/2017 11:39 PM NYLON OPERATOR) Anatomical Region Laterality Modality Head, SUBRAD CT NEURO, SUBRAD CT NEURO, UMP CT NEURO, Computed Tomography RAD CT Specimen (Source) Anatomical Location Collection Method / Collectio n Time Received Time / Laterality Volume Impressions 11/15/2017 8:18 AM NYLON OPERATOR IMPRESSION: ?? 1. No evidence of acute intracranial hem orrhage, mass, or herniation. 2. There is generalized atrophy of the b rain. White matter changes are present in the cerebral hemispheres that are consistent with small vessel ischemic disease in this age angela ent. I agree with the overnight preliminary r eport by the radiologist. KATIA DAVID MD Narrative 11/15/2017 8:[address] SCAN OF THE HEAD WITHOUT CONTRAST [...] skull ba se appear intact. Procedure Note Katai David MD - 11/15/2017 CT SCAN OF [...] CT ORDERABLES Troponin I (11/14/2017 11:29 PM NYLON OPERATOR) athologist Signature Troponin I ES <0.015 0.000 - 11/14/2017 [facility] 0.045 ug/L 11:53 PM [facility] Comment: The 99th percentile for upper reference range is 0.045 ug/L. ??Troponin values in the range of 0.045 - 0.120 ug/L may b e associated with risks of adverse clinical events. Specimen Anatomical Collection Method Collection Time Receive d Time (Source) Location / / Volume Laterality 11/14/2017 11:29 11/14/2017 PM NYLON OPERATOR 11:31 PM NYLON OPERATOR Damian Mark MD LAB - BLOOD ORDERABLES Performing Organization Address City/[facility]/ZIP [facility] [address] [place], [place] [address] [place] [address] [address] [place] [address], [facility] [phone] Partial thromboplastin time (11/14/2017 11:29 PM NYLON OPERATOR) athologist Signature PTT 30 22 - 37 sec 11/14/2017 [facility] 11:45 PM NYLON OPERATOR [facility] Specimen Anatomical Collection Method Collection Time Receive d Time (Source) Location / / Volume Laterality 11/14/2017 11:29 11/14/2017 PM NYLON OPERATOR 11:31 PM NYLON OPERATOR Damian Mark MD LAB - BLOOD ORDERABLES Performing Organization Address City/[facility]/ZIP [facility] [place]on [place] Number [facility] [address] [place], [place] [address] [place] [address] [address] [place] [address], [facility] [phone] INR (11/14/2017 11:29 PM NYLON OPERATOR) athologist Signature INR 0.96 0.86 - 1.14 11/14/2017 [facility] 11:45 PM NYLON OPERATOR HOSPITAL Specimen Anatomical Collection Method Collection Time Receive d Time (Source) Location / / Volume Laterality 11/14/2017 11:29 11/14/2017 PM NYLON OPERATOR 11:31 PM NYLON OPERATOR Damian Mark MD LAB - BLOOD ORDERABLES Performing Organization Address City/State/ZIP Code Phon e Number [place] [address] [address] [place], [place] [address] [facility] [address] [place], [place] [address], [facility] [phone] (ABNORMAL) CBC with platelets differential (11/14/2017 11:29 PM [facility]) [facility] gist Method Time Signature WBC 6.1 4.0 - 11/14/2017 [facility] 11.0 11:34 PM [facility] 10e9/L [facility] RBC Count 4.23 (L) 4.4 - 5.9 11/14/2017 [facility] 10e12/L 11:34 PM [facility] Hemoglobin 13.7 13.3 - 11/14/2017 [facility] 17.7 g/dL 11:34 PM [facility] Hematocrit 41.0 40.0 - 11/14/2017 [facility] 53.0 % 11:34 PM [facility] MCV 97 78 - 100 11/14/2017 [facility] fl 11:34 PM [facility] MCH 32.4 26.5 - 11/14/2017 [facility] 33.0 pg 11:34 [facility] MCHC 33.4 31.5 - 11/14/2017 [facility] 36.5 g/dL 11:34 [facility] RDW 12.9 10.0 - 11/14/2017 [facility] 15.0 % 11:34 PM [facility] Platelet Count 122 (L) 150 - 450 11/14/2017 [facility] 10e9/L 11:34 PM [facility] Diff Method Automated 11/14/2017 [facility] Method 11:34 PM [facility] % Neutrophils 57.3 % 11/14/2017 [facility] 11:34 PM [facility] % Lymphocytes 27.8 % 11/14/2017 [facility] 11:34 [facility] % Monocytes 11.3 % 11/14/2017 [facility] 11:34 [facility] % Eosinophils 3.1 % 11/14/2017 [facility] 11:34 PM [facility] % Basophils 0.3 % 11/14/2017 [facility] 11:34 PM [facility] % Immature 0.2 % 11/14/2017 [facility] Granulocytes 11:34 PM [facility] Nucleated RBCs 0 0 /100 11/14/2017 [facility] 11:34 PM [facility] Absolute 3.5 1.6 - 8.3 11/14/2017 [facility] Neutrophil 10e9/L 11:34 PM [facility] Absolute 1.7 0.8 - 5.3 11/14/2017 [facility] Lymphocytes 10e9/L 11:34 PM [facility] Absolute 0.7 0.0 - 1.3 11/14/2017 [facility] Monocytes 10e9/L 11:34 PM [facility] Absolute 0.2 0.0 - 0.7 11/14/2017 [facility] Eosinophils 10e9/L 11:34 PM [facility] Absolute 0.0 0.0 - 0.2 11/14/2017 [facility] Basophils 10e9/L 11:34 PM [facility] Abs Immature 0.0 0 - 0.4 11/14/2017 [facility] Granulocytes 10e9/L 11:34 PM [facility] Absolute 0.0 11/14/2017 [facility] Nucleated RBC 11:34 PM [facility] Specimen Anatomical Collection Method Collection Time Receive d Time (Source) Location / / Volume Laterality 11/14/2017 11:29 11/14/2017 PM NYLON OPERATOR 11:31 PM NYLON OPERATOR Damian Mark MD LAB - BLOOD ORDERABLES Performing Organization Address City/State/ZIP Code Phon e Number [place] [address] [address] [place] [address] [address] [facility] [address] [phone] (ABNORMAL) Basic metabolic panel (11/14/2017 11:29 PM NYLON OPERATOR) Analysis Performed At Patho logist Time Signature Sodium 141 133 - 144 11/14/2017 [facility] mmol/L 11:53 PM [facility] Potassium 3.7 3.4 - 5.3 11/14/2017 [facility] mmol/L 11:53 PM [facility] Chloride 107 94 - 109 11/14/2017 [facility] mmol/L 11:53 PM [facility] Carbon Dioxide 26 20 - 32 11/14/2017 [facility] mmol/L 11:53 PM [facility] Anion Gap 8 3 - 14 11/14/2017 [facility] mmol/L 11:53 PM [facility] Glucose 103 (H) 70 - 99 11/14/2017 [facility] mg/dL 11:53 PM [facility] Urea Nitrogen 32 (H) 7 - 30 11/14/2017 [facility] mg/dL 11:53 PM [facility] Creatinine 1.67 (H) 0.66 - 11/14/2017 [facility] 1.25 mg/dL 11:53 PM [facility] GFR Estimate 40 (L) >60 11/14/2017 [facility] mL/min/1.7 11:[address] Comment: Non GFR Calc GFR Estimate If 49 (L) >60 mL/min/1.7m2 11/14/2017 11:53 PM [facility] Comment: GFR Calc Calcium 8.9 8.5 - 10.1 mg/dL 11/14/2017 11:53 PM [facility] Specimen Anatomical Collection Method Collection Time Receive d Time (Source) Location / / Volume Laterality 11/14/2017 11:29 11/14/2017 PM NYLON OPERATOR 11:31 PM NYLON OPERATOR Damian Mark MD LAB - BLOOD ORDERABLES Performing Organization Address City/State/ZIP Code Phon e Number [place] [address] [phone] EKG 12 lead (11/14/2017 11:22 PM NYLON OPERATOR) [facility] Method Time Signature Interpretation ECG Click View RADIOLOGY Image link RESULTS to view waveform and result Specimen (Source) Anatomical Collection Method Collection Time Re ceived Time Location / / Volume Laterality 11/14/2017 11:22 PM NYLON OPERATOR Damian Mark MD ECG ORDERABLES Performing Organization Address City/State/ZIP [facility] [place] Number RADIOLOGY RESULTS documented in [...] chloride BOLUS New Bag 11/14/2017 11:48 PM NYLON OPERATOR 80 mLs Intravenous, 1,000 mL, ONCE, On 11/14/17 at 2330, For 1 dose acetaminophen (TYLENOL) tablet 1,000 mg Given 11/15/2017 1:11 AM NYLON OPERATOR 1,000 mg 1,000 mg, Oral, ONCE, On 11/15/17 at 0054, For 1 dose, Maximum acetaminophen dose from all sources = 75 mg/kg/day not to exceed 4 gram acetaminophen (TYLENOL) tablet 650 mg Given 11/15/2017 6:11 AM NYLON OPERATOR 650 mg 650 mg, Oral, EVERY 4 HOURS PRN, mild pain, Starting on 11/15/17 at 0204, Alternate ibuprofen (if ordered) with acetaminophen. Maximum acetaminophen dose from all sources = 75 mg/kg/day not to exceed 4 grams/day. gadobutrol (GADAVIST) injection 10 mL Given 11/15/2017 8:30 AM NYLON OPERATOR 10 mLs 10 mL, Intravenous, ONCE, On 11/15/17 at 0805, For 1 dose, Supplied by, and administered by MRI. iopamidol (ISOVUE-370) solution 500 mL Given 11/14/2017 11:48 PM NYLON OPERATOR 120 mLs 500 mL, Intravenous, ONCE, On 11/14/17 at 2330, For 1 dose lisinopril (PRINIVIL/ZESTRIL) tablet 5 m g 5 mg, Oral, DAILY, First dose on 11/15/17 at 1102, Hold for SBP < 100 LORazepam (ATIVAN) injection 0.5-1 mg Given 11/15/2017 8:20 AM NYLON OPERATOR 0.5 mg 0.5-1 mg, Intravenous, ONCE, On [...] Recently Administered Medications Times are shown in NYLON OPERATOR. Scheduled Medication Order 11/13/2017 11/14/2017 11/15/2017 0.9% [...] minutes.
documented in this encounter Care Teams Geography Department Chair Relationship Specialty Start Date End Date Bandar, Kehinde Portillofield PCP - General 05/12/[address] [place] [id number] documented as of this encounter
--- OUTSIDE RECORDS SUMMARY | 2022-06-05 13:49 | XMS_ITS | Encounter Summary ---
:1940 Author Organization [place] Address [address] [place] [address] Care Team Providers Name Role Phone Clinic, [facility] Primary Care Provider [phone] Reason for Visit Reason Onset Date Comments Previsit 11/10/[address] Fatuma ng--visit 11/11/17 Encounter Details Date Type Department Care Team Description 11/10/2017 Telephone [facility] Heart Ebony Arnold, Previsit (New patient Clinic Tina RN for Dr Lugo--visit [phone] [facility] 11/11/17) [address] [address] Social History Tobacco Use Types [...] reflect what patient is taking. JOSE Shahid ACCOUNTING CLERK documented in this encounter Plan of Treatment Not on filedocumented as of this encounter Visit Diagnoses Not on filedocumented in this encounter Care Teams Android Framework Developer Relationship Specialty Start Date End Date Clinic, [facility] PCP - General 05/12/[address] [place] [phone] documented as of this encounter
--- OUTSIDE RECORDS SUMMARY | 2022-06-05 13:49 | XMS_ITS | Encounter Summary ---
:1940 Author Organization [place] Address [address] [place] [id number] Care Team Providers Name Role Phone Primary Dr, Unknown MD Primary Care Provider Unavailable Reason for Visit Reason Comments Dressing Change Encounter Details Date Type Department Care Team Description 11/18/2016 Allied Health/Nurse [facility] Dressing Change Visit [place] [phone] Social History Tobacco Use Types Packs/Day [...] healed. IN CASE OF EMERGENCY: Dr White [phone] If you were seen in [place] call: [phone] If you were seen in [place] call: [phone] R documented in this encounter Progress Notes Lillian [...] needed. Patient verbalized understanding. .Marva Aj CMA R documented in this encounter Plan of Treatment Not on filedocumented as of this encounter Visit Diagnoses Diagnosis Encounter for change or removal of surgi hannah wound dressing - Primary documented in this encounter Care Teams Computer Hardware Designer Relationship Specialty Start Date End Date Primary Dipak Kasper, PCP - General 09/21/1204/18 documented as of this encounter
--- OUTSIDE RECORDS SUMMARY | 2022-06-05 13:49 | XMS_ITS | Encounter Summary ---
:1940 Author Organization [place] Address [address] [place] [id number] Care Team Providers Name Role Phone Clinic, [facility] Primary Care Provider [phone] Reason for Visit Reason Onset Date Comments Referral 05/14/2017 [facility] Encounter Details Date Type Department Care Team Description 05/14/2017 Telephone [facility], [place] ([place]) Project [address] [address] [phone] (Wo rk) Social History Tobacco Use Types [...] this time because they are not a [facility] patient, will route to [facility] Pharmacist/Provider as an FYI. Thank you for the referral. Juanita Herndon MTM Coordinator documented in this encounter Plan of Treatment Not on filedocumented as of this encounter Visit Diagnoses Not on filedocumented in this encounter Care Teams Shirring Tender Relationship Specialty Start Date End Date [facility] PCP - General 05/12/[address] [place] [id number] documented as of this encounter
--- OUTSIDE RECORDS SUMMARY | 2022-06-05 13:49 | XMS_ITS | Encounter Summary ---
:1940 Author Organization [place] Address [address] [place] [id number] Care Team Providers Name Role Phone Celina Coley Primary Care Provider [facility] [place] Primary [facility] Provider [phone] Reason for Referral Specialty Diagnoses / Procedures Referred By Contact Tam parson To Contact Sanjuanita Ponce RN Referral ID Status Reason Start Date Expiration Date Visits Requ ested Visits Authorized Specialty Diagnoses / Procedures Referred By Contact Tam parson To Contact Adrian Pleitez MD [address] [place] [id number] Referral ID Status Reason Start Date Expiration Date Visits Requ ested Visits Authorized Specialty Diagnoses / Procedures Referred By Contact Tam parson To Contact Adrian Pleitez MD [address] [facility] [address] [place] [address] Referral ID Status Reason Start Date Expiration Date Visits Requ ested Visits Authorized Specialty Diagnoses / Procedures Referred By Contact Tam parson To Contact Adrian Pleitez MD [address] [place] [address] Referral ID Status Reason Start Date Expiration Date Visits Requ ested Visits Authorized o[facility] The[facility]ies & A[facility] Specialty Diagnoses / Procedures Referred By Contact Refer red To Contact Adrian Pleitez MD [address] [place] [address] Referral ID Status Reason Start Date Expiration Date Visits Requ ested Visits Authorized - Closed Specialty Diagnoses / Procedures Referred By Contact Refer red To Contact Diagnoses Paroxysmal atrial fibrillation (H) Taran Lugo MD [address] [place] [id number] Referral ID Status Reason Start Date Expiration Date Visits Requ ested Visits Authorized [id number] Closed 06/11/2017 06/11/2018 1 1 Reason for [...] Care [address] [place] [address] Phone: Referral ID Status Reason Start Date Expiration Date Visits Requ ested Visits Authorized [id number] 1 1 Encounter Details Date Type Department Care Team Description 05/05/2017 [facility] Leesa Martinez MD [facility] [address] [id number] Opioid overdose, accidental or unintenti onal, initial encounter (Primary Dx); - Encounter Miladys Phillips MD [address] [id number] Aspiration pneumonia, unspecified aspira tion pneumonia type, unspecified laterality, unspecified part of lung (H); 05/12/2017 [facility] Stephany Farley MD [address] [place] [address] Encephalopathy; [address] Paroxysmal atrial fibrillati on (H); [place] Hyperlipidemia LDL goal <70; [address] Acute left-sided low back pa in without sciatica; [phone] Unresponsivenes s Social History Tobacco Use Types [...] Pleitez MD - 05/12/2017 3:12 PM CDT [facility] Hospitalist discharge note Date of Service [...] follow-up with cardiology, primary care physician in [place] Speedy Mcduffie is a 76 year old male with a past medical history of Htn, CKD, atrial tachycardia, chronic back pain who was admitted on 05/05/2017 with encephalopathy thought due to opioid overdose. ?? Altered mental status/Acute toxic encephalopathy - resolved Patient found by daughter (Raquel, MANAGER UTILITIES) after likely prolonged period of unresponsiveness and [...] taking scheduled morphine 15mg ER BID with [place] 7.5/325 1-1.5 tabs PRN q4-6 hours started the week CATALOGUE MAKER. Also had been taking gabapentin and flexeril. [...] ? Suspected Aspiration PNA: as above Daughter (MANAGER UTILITIES) found patient with large amount of material [...] had been managed by his PMD and CATALOGUE MAKER was on Morphine 15 mg po BID (daughter reported that in the past he was confused with Oxycontin),??[place] 7/325 mg 1 tab po q4-6 h; he is also on scheduled Gabapentin and prn Flexeril -had a recent admission to [facility] from 04/28-04/30 for severe lower back [...] then stop - Consulted PT/OT. ? HTN: CATALOGUE MAKER on Metoprolol which was dced with bradycardia. [...] Mendes LSW - 05/12/2017 11:10 AM CDT [facility]: [phone]. documented in this encounter Medications at Time [...] continuation of in hospital lisinopril, restart of CATALOGUE MAKER metoprolol (had been advised against rate slowing agents by cardiology), restart of CATALOGUE MAKER flexeril and unclear amiodarone plan. states that [...] hospitalization events. -Raquel given phone # to [facility] and names of last 2 providers seen. -Provided information on creatinine and GFR lab values as well as last administered doses of PRN metoprolol (05/09), PO metoprolol (05/07 - 1/ CATALOGUE MAKER dose) and daily lisinopril (05/12) during hospital [...] located a hospital bed for rent near [place] and has made arrangements for delivery today. SW notified CT and hospitalist to meet with daughter.per request. CC made referral to [facility] per request. Pt's family has used this agency previously. Team Members notified: Hospitalist, RN, CC, PIECE HAND Plan: Discharge home today with family and home care services through [facility]. Sanjuanita Ponce RN - 05/12/2017 9:44 AM CDT Met w/ pt's dtr Raquel and ADRIANO to discuss dc planning. Raquel has some concerns about pt going home rather than TCU but her sister Chastity is on FMLA and intends to stay at home to care for him. Raquel is a [place] ICU nurse and intensive care anaesthetist at [employer]. She has been on FMLA but [...] better today and therapy is recommending OP PT/OT/MACHINE OILER if not going to TCU. His pain level is still high with ambulation so he would benefit from home care initially as he will not be going out except to his appts. He would need an RN as well. Raquel would prefer to use home care through the [facility] as it is local and they have used it before. Raquel has contacted a hospital rental company and intends to rent a hospital bed for a while at home. She states this will be delivered today and she is taking care of those arrangements. Also discussed multiple f/u appts needed. She would like to stay within the [facility] system for vascular, cardiac, and sleep study. Contacted [facility] intake [phone] and spoke to Lynn. They would be able to see pt tomorrow at home. Faxed [phone] face sheet and H&P. Will fax orders when completed. Contacted [facility] to make f/u appt with Dr Lugo. Appt made for ThuJun 19 at 2:15 to discuss AC in light of AAA. Spoke w/ Natasha Iraheta BAIT MAKER [facility]. They do not need to see pt in f/u as strokes likely more related to hypoxia than AF and cardiology will be addressing AF issue. Contacted pt's PCP Dr Celina Coley at [facility]. Appt made for 05/15 at 10:00. Will fax handoff when dc orders complete. Contacted [facility] and appt made for ThuJun [address] Taylor to discuss sleep study. Await Dr Pleitez for further orders for vascular and urology f/u timing. Discussed transportation with dtr Raquel and bedside RN. Raquel's sister was planning on bringing [place] to last picker pt and he would have to walk [...] Lugo to discuss anticoagulation. Faxed orders to [facility] and left message with Lynn to call Raquel at [phone] toschedule appts. Sent [facility] handoff. Faviochayo Berrios Mattie - 05/11/2017 4:28 PM CDT [facility] Progress Note [facility], Palliative Team PRIMARY FOCUS: ? Symptom/pain management ?? Emotional/spiritual/mormon distress ILLNESS CIRCUMSTANCES: ?? Reviewed documentation. Reflective conversation shared with Ed, which integrated elements of illnessand family narratives.? Context of Serious Illness/Symptom(s) - Pt overdosed on opioid pain relievers accidentally upon treatment for a broken tailbone. ?? Resources for Support - Strong family support from and two daughters, along with a brother who is a [employer] rubber printing machine operator DISTRESS: ? Emotional/Existential/Relational Distress - Pt is notably thankful for surviving this overdose. He sees that he is not finished with this life, and he is beginning to look toward how best to spend his remaining time. 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 ?? Spiritual/Restorationist Distress - None discussed. Pt surprisingly comfortable with his reality of surviving. ?? Social/Cultural/Economic Distress - None discussed? SPIRITUAL/CAODAISM (Coping): ? Worship/Mariah - Sabianist. Pt did not particularly identify his own [...] has not discharged. ? Mattie Berrios M.Div. Mail Courier Pager [phone] Kassy Go APRN DEVELOPMENT COACH - 05/11/2017 3:55 PM CDT [facility] Palliative Care Progress Note Speedy Mcduffie [...] if evening or weekend. Milana Go APRN, [facility] Palliative Medicine Pager [phone] Attestation: Total time on the floor involved [...] and are neighbors. Pt' daughterRaquel is an MANAGER UTILITIES and daughter Chastity is a fire pilot. Chastity states she is currently on [...] Nikhil Rodriguez, - 05/11/2017 10:51 AM CDT [facility] Hospitalist Progress Note Nikhil Rodriguez D.O. Date of service (Date I saw patient): 05/11/2017 Assessment & Plan Speedy Mcduffie is a 76 year old male with a past medical history of Htn, CKD, atrial tachycardia, chronic back pain who was admitted on 05/05/2017 with encephalopathy thought due to opioid overdose. Altered mental status/Acute toxic encephalopathy - resolved Patient found by daughter (Raquel, MANAGER UTILITIES) after likely prolonged period of unresponsiveness and [...] taking scheduled morphine 15mg ER BID with [place] 7.5/325 1-1.5 tabs PRN q4-6 hours started the week CATALOGUE MAKER. Also had been taking gabapentin and flexeril. [...] ? Suspected Aspiration PNA: as above Daughter (MANAGER UTILITIES) found patient with large amount of material [...] had been managed by his PMD and CATALOGUE MAKER was on Morphine 15 mg po BID (daughter reported that in the past he was confused with Oxycontin),??[place] 7/325 mg 1 tab po q4-6 h; he is also on scheduled Gabapentin and prn Flexeril -had a recent admission to [facility] from 04/28-04/30 for severe lower back [...] then stop - Consulted PT/OT. ? HTN: CATALOGUE MAKER on Metoprolol which was dced with bradycardia. [...] outpt appt will be scheduled to discuss [place] [facility] [place] option in light of AAA Interval History: [...] Taran Lugo MD Counters, Natasha Li APRN DEVELOPMENT COACH - 05/11/2017 9:03 AM CDT [facility] [place] [facility] Daily Note Admission Date:05/05/2017 Date of [...] Sensory: Normal to light touch Coordination: Intact [id number] Gait: Up with assistance Cardiovascular: Regular rate [...] of small vessel ischemic disease. Natasha Iraheta, ANIMAL ATTENDANT-BC Associated attestation - Raúl Keane MD - [...] Greene MD - 05/10/2017 5:32 PM CDT [facility] Hospitalist Progress Note Assessment & Plan Speedy Mcduffie is a 76 year old male who was admitted on 05/05/2017. 76 year old male who was brought in for evaluation of unresponsiveness. ? 1. Altered mental status/Acute toxic encephalopathy Patient found by daughter (Raquel, MANAGER UTILITIES) after likely prolonged period of unresponsiveness and suspected aspiration. Airway was cleared by daughter, but patient was hypoxic in the 60s for what soundslike at least 40 minutes before oxygen was available. Patient responded to narcan and thus it was suspected that patient had an unintentional opioid overdose with worsening of renal function and taking scheduled morphine 15mg ER BID with [place] 7.5/325 1-1.5 tabs PRN q4-6 hours started [...] ? 2. Suspected Aspiration PNA - Daughter (MANAGER UTILITIES) found patient with large amount of material [...] had been managed by his PMD and CATALOGUE MAKER was on Morphine 15 mg po BID (daughter reported that in the past he was confused with Oxycontin),??[place] 7/325 mg 1 tab po q4-6 h; he is also on scheduled Gabapentin and prn Flexeril -and a recent admission to [facility] from 04/28-04/30 for severe lower back [...] Consulted PT/OT. ? 6. H/o HTN - CATALOGUE MAKER on Metoprolol 50 mg po BID for [...] Delgado MD - 05/10/2017 4:04 PM CDT [facility] Cardiology Progress Note Date of Service [...] Delgado MD - 05/09/2017 2:04 PM CDT [facility] Cardiology Progress Note Date of Service [...] Greene MD - 05/09/2017 11:58 AM CDT [facility] Hospitalist Progress Note Assessment & Plan Speedy Mcduffie is a 76 year old male who was admitted on 05/05/2017. 76 year old male who was brought in for evaluation of unresponsiveness. ? 1. Altered mental status/Acute toxic encephalopathy Patient found by daughter (Raquel, MANAGER UTILITIES) after likely prolonged period of unresponsiveness and suspected aspiration. Airway was cleared by daughter, but patient was hypoxic in the 60s for what soundslike at least 40 minutes before oxygen was available. Patient responded to narcan and thus it was suspected that patient had an unintentional opioid overdose with worsening of renal function and taking scheduled morphine 15mg ER BID with [place] 7.5/325 1-1.5 tabs PRN q4-6 hours started [...] ? 2. Suspected Aspiration PNA - Daughter (MANAGER UTILITIES) found patient with large amount of material [...] had been managed by his PMD and CATALOGUE MAKER was on Morphine 15 mg po BID (daughter reported that in the past he was confused with Oxycontin),??[place] 7/325 mg 1 tab po q4-6 h; he is also on scheduled Gabapentin and prn Flexeril -and a recent admission to [facility] from 04/28-04/30 for severe lower back [...] Consulted PT/OT. ? 6. H/o HTN - CATALOGUE MAKER on Metoprolol 50 mg po BID for [...] Bed to Chair/Chair to Bed Level of [place]: Bed to Chair moderate assist (50% patients effort) Physical Assist/Nonphysical Assist: Bed to Chair 2 persons Weight-Bearing Restrictions full weight-bearing Assistive Device - Transfer Skill Bed to Chair Chair to Bed Rehab Eval rolling walker Transfer Skill: Sit to Stand Level of [place]: Sit/Stand minimum assist (75% patients effort) Physical Assist/Nonphysical Assist: Sit/Stand 2 persons Transfer Skill: Sit to Stand full weight-bearing Assistive Device for Transfer: Sit/Stand rolling walker Transfer Skill: Toilet Transfer Level of [place]: Toilet moderate assist (50% patients effort) Physical Assist/Nonphysical Assist: Toilet 2 persons Assistive Device seat riser;grab bars Balance Balance Comments Reduced dynamic balance Upper Body Dressing Level of [place]: Dress Upper Body minimum assist (75% patients effort) Lower Body Dressing Level of [place]: Dress Lower Body maximum assist (25% patients effort) Physical Assist/Nonphysical Assist: Dress Lower Body 1 person assist Grooming Level of [place]: Grooming stand-by assist Activities of Daily Living [...] in agreement with plan of care Yes [facility] AM-PAC TM 6 Clicks ?? 2016, Trustees of [facility], under license to [employer]. All rights reserved. 6 Clicks Short Forms Basic Mobility Inpatient Short Form [facility] AM-PAC??? 6 Clicks Daily Activity Inpatient Short [...] for IV heparin. Previously reported pauses so fishing captain BB on hold. Could consider resuming BB and monitoring for pauses or short acting CCB. Would recommending re- consulting EP in am if cards agrees. Continue to monitor on tele. Lindsay Watt PA-C - 05/08/2017 9:13 PM CDT Paged by nursing regarding persistent sinus tachycardia in the 140s this evening. Pt asymptomatic. Reviewed chart. Pt with tachybrady syndrome. Cardiology following. Pt's CATALOGUE MAKER BB has been on hold as wasalternating between periods of sinus tach and sinus dani with up to 3 second pause. Will order PRN IV Metoprolol 2.5 mg q 4 hrs PRN. Monitor. If pt should become symptomatic or HR's continue to be persistently elevated, could increase dose of IV Metoprolol or reinitiate CATALOGUE MAKER BB. Stephany Farley MD - 05/08/2017 2:27 PM CDT [facility] Hospitalist Progress Note Date of Service (when I saw the patient): 05/08/2017 Assessment & Plan Speedy Mcduffie is a 76 year old male who was brought in for evaluation of unresponsiveness. ? 1. Altered mental status/Acute toxic encephalopathy Patient found by daughter (Raquel, MANAGER UTILITIES) after likely prolonged period of unresponsiveness and suspected aspiration. Airway was cleared by daughter, but patient was hypoxic in the 60s for what soundslike at least 40 minutes before oxygen was available. Patient responded to narcan and thus it was suspected that patient had an unintentional opioid overdose with worsening of renal function and taking scheduled morphine 15mg ER BID with [place] 7.5/325 1-1.5 tabs PRN q4-6 hours started [...] ? 2. Suspected Aspiration PNA - Daughter (MANAGER UTILITIES) found patient with large amount of material [...] had been managed by his PMD and CATALOGUE MAKER was on Morphine 15 mg po BID (daughter reported that in the past he was confused with Oxycontin),??[place] 7/325 mg 1 tab po q4-6 h; he is also on scheduled Gabapentin and prn Flexeril -and a recent admission to [facility] from 04/28-04/30 for severe lower back [...] Consulted PT/OT. ? 6. H/o HTN - CATALOGUE MAKER on Metoprolol 50 mg po BID for [...] planning totake patient home. Stephany Farley MD [phone] (P) Text page (7am to 6pm) Interval [...] hospital, year, though thought he was in [place], [place]. No acute distress. Non-toxic. Respiratory: Clear [...] Farley MD - 05/07/2017 10:00 PM CDT [facility] Hospitalist Progress Note Date of Service (when I saw the patient): 05/07/2017 Assessment & Plan Speedy Mcduffie is a 76 year old male who was brought in for evaluation of unresponsiveness. ? 1. Altered mental status/Acute toxic encephalopathy Patient found by daughter (Raquel, MANAGER UTILITIES) after likely prolonged period of unresponsiveness and suspected aspiration. Airway was cleared by daughter, but patient was hypoxic in the 60s for what soundslike at least 40 minutes before oxygen was available. Patient responded to narcan and thus it was suspected that patient had an unintentional opioid overdose with worsening of renal function and taking scheduled morphine 15mg ER BID with [place] 7.5/325 1-1.5 tabs PRN q4-6 hours started [...] ?? 2. Suspected Aspiration PNA - Daughter (MANAGER UTILITIES) found patient with large amount of material [...] had been managed by his PMD and CATALOGUE MAKER was on Morphine 15 mg po BID (daughter reported that in the past he was confused with Oxycontin),??[place] 7/325 mg 1 tab po q4-6 h; he is also on scheduled Gabapentin and prn Flexeril -and a recent admission to [facility] from 04/28-04/30 for severe lower back [...] more alert. ? 6. H/o HTN - CATALOGUE MAKER on Metoprolol 50 mg po BID for HTN. - Holding now with bradycardia. Will follow. - monitor BP ? 7. Dyslipidemia - hold CATALOGUE MAKER Atorvastatin while he is npo ? 8 [...] monitoring in ICU overnight. Stephany Farley MD [phone] (P) Text page (7am to 6pm) Interval History Patient given ativan overnight and somnolent when patient's daughter present during day. Patient also noting headache throughout day. Head CT done without any acute findings. [place] with minimal improvement. Patient's mentation improved by [...] alone. I ordered gabapentin and low dose [place] (home meds). RN concerned about alcohol withdrawal, experiencing hallucinations. CIWA, banana bag and ativan prn ordered for alcohol withdrawal. Stephany Farley MD - 05/06/2017 7:05 PM CDT [facility] Hospitalist Progress Note Date of Service (when I saw the patient): 05/06/2017 Assessment & Plan Speedy Mcduffie is a 76 year old male who was brought in for evaluation of unresponsiveness. ?? 1. Altered mental status/Acute toxic encephalopathy Patient found by daughter (Raquel, MANAGER UTILITIES) after likely prolonged period of unresponsiveness and suspected aspiration. Airway was cleared, but patient was hypoxic in the 60s for what sounds like at least 20-40 minutes before oxygen was available. Patient responded to narcan and thus it was suspected that patient had an unintentional opioid overdose with worsening of renal function and taking scheduled morphine 15mg ER BID with [place] 7.5/325 1-1.5 tabs PRN q4-6 hours started in the past week. Also had been taking gabapentin and flexeril. - Patient started on narcan drip initially and this has since been stopped. - Appreciate acoustical logging engineer recommendations. Had initially planned to transfer to step down this afternoon, but patient having episodes of bradycardia in 40s - 50s, with one strip noting a rate of 29. These seem to happen when patient is sleeping and are sinus in nature. Sewing Machine Mechanic agrees with keeping patient in the ICU [...] ?? 2. Suspected Aspiration PNA - Daughter (MANAGER UTILITIES) found patient with large amount of material [...] had been managed by his PMD and CATALOGUE MAKER was on Morphine 15 mg po BID (daughter reported that in the past he was confused with Oxycontin), [place] 7/325 mg 1 tab po q4-6 h; he is also on scheduled Gabapentin and prn Flexeril -and a recent admission to [facility] from 04/28-04/30 for severe lower back pain when tapering Prednisone was added. On prednisone 10mg daily at time of event with plan for 2 more days 10mg and then 3 days 5mg daily. - Holding meds initially. Avoiding narcotics. Will consult PT when more alert. ?? 6. H/o HTN - CATALOGUE MAKER on Metoprolol 50 mg po BID for HTN. - Holding now with episodic bradycardia. Will follow. - monitor BP - Metoprolol iv prn ordered ?? 7. Dyslipidemia - hold CATALOGUE MAKER Atorvastatin while he is npo ?? 8 [...] hypoxia. PT consulted. ?? Stephany Farley MD [phone] (P) Text page (7am to 6pm) Interval [...] 76 yo male found unresponsive, airlifted to [facility] for ongoing treatment of unitnentional overdose [...] in agreement with plan of care Yes [facility] TM 6 Clicks ?? 2016, Trustees of [facility], under license to [employer]. All rights reserved. 6 Clicks Short Forms Basic Mobility Inpatient Short Form [facility]??? 6 Clicks V.2 Basic Mobility Inpatient [...] 76 yo male found unresponsive, airlifted to [facility] for ongoing treatment of unitnentional overdose [...] in agreement with plan of care Yes [facility] TM 6 Clicks ?? 2016, Trustees of [facility], under license to [employer]. All rights reserved. 6 Clicks Short Forms Basic Mobility Inpatient Short Form [facility]??? 6 Clicks V.2 Basic Mobility Inpatient [...] Total Evaluation Time (Minutes) 10 Marie Zuñiga, MACHINE OILER - 05/06/2017 1:30 PM CDT 05/06/17 0959 [...] aspiration of his vomit. Clinical Swallow Eval: [place] Thick Liquid Texture Trial Mode of Presentation, [place] spoon;self-fed Volume of [place] Presented 3 teaspoons Oral Phase, [place] WFL Pharyngeal Phase, [place] intact Clinical Swallow Eval: Puree Solid Texture [...] Irvin MD - 05/06/2017 9:51 AM CDT [facility] Critical Care Service Progress Note Date of Service: 05/06/2017 Assessment & Plan Speedy Mcduffie is a 76 year old male who was admitted on 05/05/2017 with altered mental status following a possible unintentional narcotic overdose. DRAW FIRE OPERATOR: Alert, appropriate, oriented this AM. - [...] FEN/GI: Abdomen benign. - NPO for now. MACHINE OILER evaluation to assess swallow, consider starting diet [...] Today - Stop naloxone infusion. - PT, MACHINE OILER. - Possible transfer from ICU. Interval History [...] Mccullough MD - 05/05/2017 5:34 PM CDT [facility] History and Physical Hospitalist Date of [...] BID, more recently (last week) started on [place] 7.5/325 mg 1 tab po q4-6h prn - he is also on scheduled Gabapentin and Flexeril prn - his daughter- who is a MANAGER UTILITIES does not think that he overdosed intentionally; [...] 141/81 - discussed with ICU attending; formal acoustical logging engineer consult - continue BiPAP for now- wean [...] had been managed by his PMD and CATALOGUE MAKER was on Morphine 15 mg po BID (daughter reported that in the past he was confused with Oxycontin), Marlborough 7/325 mg 1 tab po q4-6 h; he is also on scheduled Gabapentin and prn Flexeril -and a recent admission to [facility] from 04/28-04/30 for severe lower back pain when tapering Prednisone was added - it seems that he was doing fine at home, walking with walker - now holding all narcotics, Gabapentin, Flexeril - may need to be seen by PT when he will be more awake 6. H/o HTN - CATALOGUE MAKER on Metoprolol 50 mg po BID- hold it for now given AMS and isolated low BP - monitor BP - Metoprolol iv prn ordered 7. Dyslipidemia - hold CATALOGUE MAKER Atorvastatin while he is npo 8 . [...] the time of my examination;she is a MANAGER UTILITIES at [employer]. History of Present Illness Speedy Mcduffie [...] time); more recently- he was started on [place] 7/325 mg 1 tab poq4-6 h; he is also on scheduled Gabapentin and prn Flexeril. He was recently admitted to [facility] from 04/28- 04/30/2017 for severe back pain; [...] called 911; he was air lifted to [facility]. As per report- he was given [...] vibration. His coordin ation is intact to [id number]. I did not his gait exam. Impression: [...] additional neurological questions. Arpita Nelson MD Document: [id number] REEDER\. Margaret Laguna MD - 05/08/2017 10:11 AM CDT [facility] Palliative Care Consultation Note Patient: Speedy [...] with any urgent needs. Margaret Laguna Pager: [phone] [facility] Inpatient Team Consult pager [phone] (M-F 8-4:30) After-hours Answering Service [phone] Palliative Clinic: [phone] Assessment Speedy Mcduffie is a 76 year old male with lower back pain 2/2 incomplete sacral fracture after a fall managed conservatively with opioids admitted 05/05 for suspected unintentional opioid overdose and aspiration. Course complicated by acute hypoxic respiratory failure, altered mental status, acute on CKD. Symptoms: Pain: didn't tolerate opioids throughout his treatment course (a little over a week CATALOGUE MAKER): felt somnolent. He doesn't recall making changes [...] done rapidly if he hasn't taken it CATALOGUE MAKER. Lidocaine patches didn't help in the past. Gets good relief with heat and ice, using heating pad now. I feel a trial of low-dose diclofenac with monitoring of his renal function would be a good option at this time. He is already on misoprostol CATALOGUE MAKER, which I assume was started with the [...] Care Planning: patient is working on a Open Garden at home, wants to designate his daughters [...] sleep last night, also received one 5/325 Marlborough about 90min prior to my visit. ROS: [...] magnesia daily prn, Senna-docusate prn - none CATALOGUE MAKER: MS Contine 15mg bid Hydrocodone/APAP 7.5/325 1-1.5 [...] reviewed: crea 1.24 (baseline) Margaret Laguna Pager: [phone] [facility] Inpatient Team Consult pager [phone] (M-F 8-4:30) After-hours Answering Service [phone] Palliative Clinic: [phone] Total time spent was 45 minutes, >50% of time was spent counseling and/or coordination of care regarding symptom assessment, disease understanding. Rolando Burrell MD - 05/07/2017 11:00 AM CDT [facility] Cardiology Consultation Date of Admission: 05/05/2017 [...] HDL, LDL, TRIG, CHOLHDLRATIO in the last 92109 hours. Recent Labs Lab 05/07/17 0450 05/06/1744405/05/17 [...] 9:21 AM CDTAssociated Order(s): CARDIOLOGY IP CONSULT [facility] Cardiology Consultation Date of Admission: 05/05/2017 [...] 3 seconds) 2) Altered Mental Status - [place] to be due to incidental opioid overdose [...] opioid therapy. He had recent admission to [facility] between 711 and 713 for severe back [...] Sinus Bradycardia Kamari Jones PA-C 05/07/2017 Pager: [phone] Associated attestation - Hue Klein MD - [...] Irvin MD - 05/05/2017 6:24 PM CDT [facility] History and Physical/ Consult Critical Care Service Date of Admission: 05/05/2017 Date of Service: 05/05/17 Assessment & Plan Speedy Mcduffie is a 76 year old male who presents with altered mental status. 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 Naloxone administered during transport improved his mental status transiently. The patient has a recent sacral fracture which has caused some lknvlwfnq-tv-[id number] pain. Past Medical History I have reviewed [...] NEG Ketones Urine Negative NEG mg/dL Specific [place] Urine 1.020 1.003 - 1.035 Blood Urine [...] patient was brought by ambulance to a [facility] helicopter and then to the emergency department for evaluation because his other daughter is nurse in the ICU at [facility]. He was not brought to [place] for evaluation because he was initially unresponsive. [...] Remove hardware foot Left lung surgical decortication [place] teeth Family History: History reviewed. No pertinent [...] wave abnormality Abnormal ECG Rate [address] interval 138. QRS duration 76. QT/QTc 376/431. [...] to document services personally performed by Leesa aMrtinez MD, based on my observations and the provider's statements to me. 05/05/2017 EMERGENCY DEPARTMENT Leesa Martinez MD 05/05/17 1747 documented in this encounter Miscellaneous Notes Provider Notification - Aubrey Morales, RN - 05/12/2017 3:42 PM CDT Paged and spoke to Dr. Pleitez notified pharmacist from [place] [facility] called with concern with counter indications with the d/c med sent. Manager Integration given phone number to Dr. Pleitez, she will contact pharmacy to verify. Phone number [phone] Plan of Care - Nai Santacruz PT - 05/12/2017 3:42 PM CDT Problem: Goal Outcome Summary Goal: Goal Outcome Summary Physical Therapy Discharge Summary Reason for therapy discharge: Discharged to home with home therapy. Progress towards therapy goal(s). See goals on Care Plan in [facility] electronic health record for goal details. Goals [...] goal(s). See goals on Care Plan in [facility] electronic health record for goal details. Goals [...] Goal Outcome Summary Goal: Goal Outcome Summary Hotel Clerk PT Patient plan for discharge: Home with [...] activity. CIWA was 0 in AM, then d/rja by hospitalist. Up A2 w/ GB and [...] Goal Outcome Summary Goal: Goal Outcome Summary Hotel Clerk PT Patient plan for discharge: None stated [...] PM Plan of Care - Marie Zuñiga, MACHINE OILER - 05/11/2017 10:13 AM CDT Problem: Goal Outcome Summary Goal: Goal Outcome Summary Hotel Clerk MACHINE OILER Patient plan for discharge: Patient would like [...] pt for OT session, pt busy with MACHINE OILER and eating breakfast on 1st attempt, 2nd [...] and then 379cc at 1210 and 476cc [id number]. D/c pending, currently recommending TCU. Nrsg will continue to monitor. Plan of Care - Marie Zuñiga SLP - 05/10/2017 1:50 PM CDT Problem: Goal Outcome Summary Goal: Goal Outcome Summary Hotel Clerk MACHINE OILER Patient plan for discharge: Patient would like [...] declines/aspiration signs are observed. Plan to continue MACHINE OILER swallow Tx For one mores session to [...] Goal Outcome Summary Goal: Goal Outcome Summary Hotel Clerk PT Patient plan for discharge: Pt hopes [...] Goal Outcome Summary Goal: Goal Outcome Summary Hotel Clerk OT Patient plan for discharge: home with [...] Outcome: Improving Altered mental status. PT, OT, MACHINE OILER. A/Ox4, forgetful, acute confusion episodes upon waking [...] Goal Outcome Summary Goal: Goal Outcome Summary Hotel Clerk MACHINE OILER Patient plan for discharge: Did not state [...] declines/aspiration signs are observed. Plan to continue MACHINE OILER swallow Tx short term to insure diet tolerance and train strategies. Barriers to return to prior living situation: Level of assist per OT/PT needs Recommendations for discharge: Per OT/PT needs; No MACHINE OILER needs likely indicated after discharge Rationale for recommendations: Anticipate MACHINE OILER swallow Tx goal to be be met [...] Goal Outcome Summary Goal: Goal Outcome Summary MACHINE OILER: Attempted to see patient at breakfast for [...] Pt had assist with dressing, and IADLs. Hotel Clerk OT Patient plan for discharge: Home with [...] 05/08/2017 11:15 PM CDT Page to MD circulation manager, pt still tachy in high 115-150s - occasionally will drop below 100 but then tachycardia resumes. Given all PRN options. Orders for meds rec'd/updated in DEC. 0030 Bedside RN went togive meds and HR slowed, sustained into 70's long enough to capture strip. Tele strip printed by this loan underwriter, pt appears to be in a-flutter. Sent to CCU to verify. 0045 Re-page to MD circulation manager regarding underlying rhythm. STAT 12 lead ordered. [...] to hospitalist, PRN Metoprolol ordered and given. Manager Integration also instructed to give scheduled BP meds. [...] Goal Outcome Summary Goal: Goal Outcome Summary Hotel Clerk MACHINE OILER Patient plan for discharge: Did not state [...] day without symptoms, bp high apresoline iv [id number] without much improvement. notified at 1300 hospitalist [...] life. Hosptalist ordered to give low dose Marl[place] and stat head CT. Notified primary nurse. Plan of Care - Kassy Chatman SLP - 05/07/2017 2:50 PM CDT Problem: Goal Outcome Summary Goal: Goal Outcome Summary Hotel Clerk MACHINE OILER Patient plan for discharge: Did not state [...] PM Plan of Care - Marie Zuñiga MACHINE OILER - 05/07/2017 9:47 AM CDT Problem: Goal Outcome Summary Goal: Goal Outcome Summary MACHINE OILER: Attempted to see patient for swallow treatment [...] metoprolol per prn order after discussing with acoustical logging engineer. Pt then had periods of tachy/dani. See [...] Goal Outcome Summary Goal: Goal Outcome Summary Hotel Clerk PT PT: Evaluation completed, treatment initiated. 76 [...] Goal Outcome Summary Goal: Goal Outcome Summary Hotel Clerk MACHINE OILER Patient plan for discharge: Undetermined Current status: [...] his respiratory status hold the diet. 3. MACHINE OILER will f/u for diet tolerance on 05/07/17. [...] intermittently to vigorous sternal rub. MD aware, acoustical logging engineer consult. [place] reassess at 2000 for intubation. CV: SR, pressure stable. Pulm: LS coarse, BIPAP. GI/: Abd distended. Adequate clear urine output. Skin: intact Lines: 2 periph iv Plan: plan to reassess arousal level and ABG at 1999 Pharmacy-Admission Medication History - Victoriano Villa RPH - 05/05/2017 4:44 PM CDT Admission medication history interview status for the 05/05/2017 admission is complete. See [facility] admission navigator for prior to admission medications Medication history source reliability:Good Actions taken by pharmacist (provider contacted, etc):None Additional medication history information not noted on CATALOGUE MAKER med list : ----Pt unresponsive. Medication bottles [...] with Referral Routine Paroxysmal atrial Expected : Flower Grader fibrillation (H) 05/20 (Approximate), Expires: 05/11/2018 Home Care PT Referral for Referral Routine Enceph alopathy Ordered: Hospital Discharge Aspiration pneumonia, 05/12/2017 unspecified aspiration pneumonia type, unspecified laterality, unspecified part of lung (H) Home Care OT Referral for Referral Routine Enceph alopathy Ordered: Hospital Discharge Aspiration pneumonia, 05/12/2017 unspecified aspiration pneumonia type, unspecified laterality, unspecified part of lung (H) Home Care MACHINE OILER Referral for Referral Routine Encep halopathy Ordered: [...] Time Signature Sodium 144 133 - 144 HOUSE mmol/L [facility] Potassium 4.0 3.4 - 5.3 HOUSE mmol/L [facility] Chloride 112 (H) 94 - 109 HOUSE mmol/L [facility] Carbon Dioxide 22 20 - 32 HOUSE mmol/L [facility] Anion Gap 10 3 - 14 HOUSE mmol/L [facility] Glucose 111 (H) 70 - 99 HOUSE mg/dL [facility] Urea Nitrogen 25 7 - 30 HOUSE mg/dL [facility] Creatinine 1.55 (H) 0.66 - HOUSE 1.25 mg/dL [facility] GFR Estimate 44 (L) >60 HOUSE mL/min/1.[address] Comment: Non GFR Calc GFR Estimate If Black 53 (L) >60 mL/min/1.7m2 F [facility] Comment: GFR Calc Calcium 8.1 (L) 8.5 - 10.1 mg/dL [facility] Specimen Anatomical Collection Method Collection Time Receive d Time (Source) Location / / Volume Laterality Blood specimen 05/12/2017 8:52 AM 017 9:02 (specimen) CDT AM CDT Nikhil Rodriguez DO LAB - BLOOD ORDERABLES Performing Organization Address City/State/ZIP Code Phon e Number M [facility] [address] [address] [facility] [address] [address], [place] [phone] Hemoglobin A1c (05/11/2017 11:37 AM CDT) athologist Signature Hemoglobin A1C 5.6 4.3 - 6.0 [facility] Specimen Anatomical Collection Method Collection Time Receive d Time (Source) Location / / Volume Laterality Blood specimen 05/11/2017 11:37 7 (specimen) AM CDT 11:57 AM CDT Natasha Jen Counters CAD DESIGN ENGINEER DEVELOPMENT COACH LAB - BLOOD ORDERABLES Performing Organization Address City/State/ZIP Code Phon e Number [facility] [address] [address] [facility] [address] [address], [place] [phone] Vitamin B12 (05/11/2017 11:37 AM CDT) athologist Signature Vitamin B12 800 193 - 986 [facility] pg/mL [facility] Specimen Anatomical Collection Method Collection Time Receive d Time (Source) Location / / Volume Laterality Blood specimen 05/11/2017 11:37 7 (specimen) AM CDT 11:57 AM CDT Natasha Jen Counters CAD DESIGN ENGINEER DEVELOPMENT COACH LAB - BLOOD ORDERABLES Performing Organization Address City/State/ZIP Code Phon e Number [address] [address] [facility] Vitamin D Deficiency (05/11/2017 11:37 AM CDT) athologist Signature Vitamin D 26 20 - 75 [facility] Deficiency ug/L [facility] Comment: Season, race, dietary intake, and treatm ent affect the concentration of 69-dolrnub-Wyywurf D. Values may decrea se during winter [...] CDT 11:57 AM CDT Natasha Jen Counters CAD DESIGN ENGINEER DEVELOPMENT COACH LAB - BLOOD ORDERABLES Performing Organization Address City/[facility]/ZIP Code Phon e Number [id number] [place] [address] (ABNORMAL) Lipid Profile (05/11/2017 11:37 AM CDT) P athologist Signature Cholesterol 128 <200 mg/dL [facility] Triglycerides 164 (H) <150 mg/dL [facility] Comment: Borderline high: ??150-199 mg/dl High: ? 200-499 mg/dl Very high: ? >499 mg/dl HDL Cholesterol 44 >39 mg/dL [facility] LDL Cholesterol Calculated 51 <100 mg/dL [facility] Comment: Desirable: <100 mg/dl Non HDL Cholesterol 84 <130 mg/dL [facility] Specimen Anatomical Collection Method Collection Time Receive d Time (Source) Location / / Volume Laterality Blood specimen 05/11/2017 11:37 7 (specimen) AM CDT 11:57 AM CDT Natasha Jen Counters CAD DESIGN ENGINEER DEVELOPMENT COACH LAB - BLOOD ORDERABLES Performing Organization Address City/[facility]/ZIP Code Phon e Number [facility] [address] [address] [facility] [address] [address], [place] [phone] Platelet count (05/11/2017 7:17 AM CDT) P athologist Signature Platelet Count 169 150 - 450 HOUSE 10e9/L [facility] Specimen Anatomical Collection Method Collection Time Receive d Time (Source) Location / / Volume Laterality Blood specimen 05/11/2017 7:17 AM 017 7:30 (specimen) CDT AM CDT Stephany Farley MD LAB - BLOOD ORDERABLES Performing Organization Address City/State/ZIP Code Phon e Number M [facility] [address] [address] [facility] [address] [place] [address], [place] [phone] (ABNORMAL) Basic metabolic panel (05/11/2017 7:17 AM CDT) Analysis Performed At Path logist Time Signature Sodium 144 133 - 144 HOUSE mmol/L [facility] Potassium 3.7 3.4 - 5.3 HOUSE mmol/L [facility] Chloride 112 (H) 94 - 109 HOUSE mmol/L [facility] Carbon Dioxide 23 20 - 32 HOUSE mmol/L [facility] Anion Gap 9 3 - 14 HOUSE mmol/L [facility] Glucose 94 70 - 99 HOUSE mg/dL [facility] Urea Nitrogen 25 7 - 30 HOUSE mg/dL [facility] Creatinine 1.56 (H) 0.66 - HOUSE 1.25 mg/dL [facility] GFR Estimate 44 (L) >60 HOUSE mL/min/1.[address] Comment: Non GFR Calc GFR Estimate If Black 53 (L) >60 mL/min/1.7m2 F [facility] Comment: GFR Calc Calcium 8.5 8.5 - 10.1 mg/dL [facility] Specimen Anatomical Collection Method Collection Time Receive d Time (Source) Location / / Volume Laterality Blood specimen 05/11/2017 7:17 AM 017 7:30 (specimen) CDT AM CDT Isra Greene MD LAB - BLOOD ORDERABLES Performing Organization Address City/State/ZIP Code Phon e Number M [facility] [address] [address] [facility] [address] [address], [place] [phone] (ABNORMAL) CBC with platelets differential (05/10/2017 7:43 AM CDT) [facility] gist Method Time Signature WBC 7.7 4.0 - HOUSE 11.[address] RBC Count 3.89 (L) 4.4 - 5.9 HOUSE 10e12/L [facility] Hemoglobin 12.7 (L) 13.3 - HOUSE 17.7 g/dL [facility] Hematocrit 37.0 (L) 40.0 - HOUSE 53.0 % [facility] MCV 95 78 - 100 HOUSE fl [facility] MCH 32.6 26.5 - HOUSE 33.0 pg [facility] MCHC 34.3 31.5 - HOUSE 36.5 g/dL [facility] RDW 13.3 10.0 - HOUSE 15.0 % [facility] Platelet Count 168 150 - [address] Diff Method Automated HOUSE Method [facility] % Neutrophils 68.9 % [facility] % Lymphocytes 17.9 % [facility] % Monocytes 9.7 % [facility] % Eosinophils 2.6 % [facility] % Basophils 0.3 % [facility] % Immature 0.6 % HOUSE Granulocytes [facility] Nucleated RBCs 0 0 /100 [facility] Absolute 5.3 1.6 - 8.3 HOUSE Neutrophil 109[facility] Absolute 1.4 0.8 - 5.3 HOUSE Lymphocytes 109[facility] Absolute 0.8 0.0 - 1.3 HOUSE Monocytes 10e9[facility] Absolute 0.2 0.0 - 0.7 HOUSE Eosinophils 10e9[facility] Absolute 0.0 0.0 - 0.2 HOUSE Basophils 109[facility] Abs Immature 0.1 0 - 0.[address] [place] [address] Absolute 0.0 HOUSE Nucleated RBC [facility] Specimen Anatomical Collection Method Collection Time Receive d Time (Source) Location / / Volume Laterality Blood specimen 05/10/2017 7:43 AM 017 8:05 (specimen) CDT AM CDT Isra Greene MD LAB - BLOOD ORDERABLES Performing Organization Address City/State/ZIP Code Phon e Number M [facility] [address] [place] [address] [facility] [address] [address], [place] [phone] (ABNORMAL) Basic metabolic panel (05/10/2017 7:43 AM CDT) Analysis Performed At Path logis Time Signature Sodium 144 133 - 144 HOUSE mmol/L [facility] Potassium 3.5 3.4 - 5.3 HOUSE mmol/L [facility] Chloride 111 (H) 94 - 109 HOUSE mmol/L [facility] Carbon Dioxide 23 20 - 32 HOUSE mmol/L [facility] Anion Gap 10 3 - 14 HOUSE mmol/L [facility] Glucose 97 70 - 99 HOUSE mg/dL [facility] Urea Nitrogen 24 7 - 30 HOUSE mg/dL [facility] Creatinine 1.49 (H) 0.66 - HOUSE 1.25 mg/dL [facility] GFR Estimate 46 (L) >60 HOUSE mL/min/1.[address] Comment: Non GFR Calc GFR Estimate If Black 56 (L) >60 mL/min/1.7m2 F [facility] Comment: GFR Calc Calcium 8.6 8.5 - 10.1 mg/dL [facility] Specimen Anatomical Collection Method Collection Time Receive d Time (Source) Location / / Volume Laterality Blood specimen 05/10/2017 7:43 AM 017 8:05 (specimen) CDT AM CDT Isra Greene MD LAB - BLOOD ORDERABLES Performing Organization Address City/State/ZIP Code Phon e Number M [facility] [address] [address] [facility] [address] [address], [place] [phone] MR Brain w/o & w Contrast (05/09/2017 [...] with platelets differential (05/09/2017 7:27 AM CDT) [facility] gist Method Time Signature WBC 9.5 4.0 - [place] 11.0 [facility] 10e9/[facility] RBC Count 3.94 (L) 4.4 - 5.9 HOUSE 10e12/L [facility] Hemoglobin 12.9 (L) 13.3 - HOUSE 17.7 g/dL [facility] Hematocrit 37.0 (L) 40.0 - HOUSE 53.0 % [facility] MCV 94 78 - 100 HOUSE fl [facility] MCH 32.7 26.5 - [facility] 33.0 pg [facility] MCHC 34.9 31.5 - HOUSE 36.5 g/dL [facility] RDW 13.1 10.0 - HOUSE 15.0 % [facility] Platelet Count 185 150 - 450 HOUSE 10e9/L [facility] Diff Method Automated HOUSE Method [facility] % Neutrophils 74.3 % [facility] % Lymphocytes 13.7 % [facility] % Monocytes 9.3 % [facility] % Eosinophils 2.2 % [facility] % Basophils 0.1 % [facility] % Immature 0.4 % HOUSE Granulocytes [facility] Nucleated RBCs 0 0 /100 [facility] Absolute 7.1 1.6 - 8.3 HOUSE Neutrophil 10e9/L [facility] Absolute 1.3 0.8 - 5.3 HOUSE Lymphocytes 10e9/L [facility] Absolute 0.9 0.0 - 1.3 HOUSE Monocytes 10e9/L [facility] Absolute 0.2 0.0 - 0.7 HOUSE Eosinophils 10e9/L [facility] Absolute 0.0 0.0 - 0.2 HOUSE Basophils 10e9/L [facility] Abs Immature 0.0 0 - 0.4 HOUSE Granulocytes 10e9/L [facility] Absolute 0.0 HOUSE Nucleated RBC [facility] Specimen Anatomical Collection Method Collection Time Receive d Time (Source) Location / / Volume Laterality Blood specimen 05/09/2017 7:27 AM 017 7:40 (specimen) CDT AM CDT Stephany Farley MD LAB - BLOOD ORDERABLES Performing Organization Address City/[facility]/ZIP [facility] Phon e Number [facility] [address] [address] [phone] [facility] [address] [address], [place] [phone] (ABNORMAL) Basic metabolic panel (05/09/2017 7:27 AM CDT) Analysis Performed At Patho logist Time Signature Sodium 142 133 - 144 HOUSE mmol/L [facility] Potassium 3.5 3.4 - 5.3 HOUSE mmol/L [facility] Chloride 110 (H) 94 - 109 HOUSE mmol/L [facility] Carbon Dioxide 21 20 - 32 HOUSE mmol/L [facility] Anion Gap 11 3 - 14 HOUSE mmol/L [facility] Glucose 105 (H) 70 - 99 HOUSE mg/dL [facility] Urea Nitrogen 22 7 - 30 HOUSE mg/dL [facility] Creatinine 1.44 (H) 0.66 - HOUSE 1.25 mg/dL [facility] GFR Estimate 48 (L) >60 HOUSE mL/min/1.[address] Comment: Non GFR Calc GFR Estimate If Black 58 (L) >60 mL/min/1.7m2 F [facility] Comment: GFR Calc Calcium 9.1 8.5 - 10.1 mg/dL [facility] Specimen Anatomical Collection Method Collection Time Receive d Time (Source) Location / / Volume Laterality Blood specimen 05/09/2017 7:27 AM 017 7:40 (specimen) CDT AM CDT Stephany Farley MD LAB - BLOOD ORDERABLES Performing Organization Address City/State/ZIP Code Phon e Number M [facility] [address] [place] [address] [facility] [address] [place] [address], [place] [phone] EKG 12-lead, tracing only (05/09/2017 12:59 AM CDT) [facility] Method Time Signature Interpretation ECG Click View RADIOLOGY Image link RESULTS to view waveform and result Specimen (Source) Anatomical Collection Method Collection Time Re ceived Time Location / / Volume Laterality 05/09/2017 12:59 AM CDT Mickey Smith MD ECG ORDERABLES Performing Organization Address City/State/ZIP Code Phon e Number RADIOLOGY RESULTS EKG 12-lead, tracing only (05/08/2017 9:00 PM CDT) [facility] Method Time Signature Interpretation ECG Click [...] Signature Lactic Acid 1.3 0.7 - 2.1 HOUSE mmol/L [facility] Specimen Anatomical Collection Method Collection Time Receive d Time (Source) Location / / Volume Laterality Blood specimen 05/08/2017 8:45 PM 017 8:58 (specimen) CDT PM CDT Stephany Farley MD LAB - BLOOD ORDERABLES Performing Organization Address City/State/ZIP Code Phon e Number M [facility] [address] [place] [address] [facility] [address] [place] [address], [place] [phone] (ABNORMAL) N-terminal Pro BNP Inpatient (AM Draw) (05/08/2017 5:00 AM CDT) Analysis Performed At Patho logist Time Signature N-Terminal Pro 2,947 (H) 0 - 900 HOUSE BNP Inpatient pg/mL [facility] Comment: Reference range shown and results [...] City/State/ZIP Code Phon e Number M [facility] [address] [address] [facility] [address] [place] [address], U [phone] (ABNORMAL) CBC with platelets differential (05/08/2017 5:00 AM CDT) [facility] Method Time Signature WBC 12.7 (H) 4.0 - HOUSE 11.0 [facility] 10e9/L [facility] RBC Count 4.00 (L) 4.4 - 5.9 HOUSE 10e12/L [facility] Hemoglobin 13.0 (L) 13.3 - HOUSE 17.7 g/dL [facility] Hematocrit 38.3 (L) 40.0 - HOUSE 53.0 % [facility] MCV 96 78 - 100 HOUSE fl [facility] MCH 32.5 26.5 - HOUSE 33.0 pg [facility] MCHC 33.9 31.5 - HOUSE 36.5 g/dL [facility] RDW 13.1 10.0 - HOUSE 15.0 % [facility] Platelet Count 162 150 - 450 HOUSE 10e9/L [facility] Diff Method Automated HOUSE Method [facility] % Neutrophils 82.5 % [facility] % Lymphocytes 8.9 % [facility] % Monocytes 6.9 % [facility] % Eosinophils 1.2 % [facility] % Basophils 0.1 % [facility] % Immature 0.4 % HOUSE Granulocytes [facility] Nucleated RBCs 0 0 /100 [facility] Absolute 10.5 (H) 1.6 - 8.3 HOUSE Neutrophil 10e9/L [facility] Absolute 1.1 0.8 - 5.3 HOUSE Lymphocytes 10e9/L [facility] Absolute 0.9 0.0 - 1.3 HOUSE Monocytes 10e9/L [facility] Absolute 0.2 0.0 - 0.7 HOUSE Eosinophils 10e9/L [facility] Absolute 0.0 0.0 - 0.2 HOUSE Basophils 10e9/L [facility] Abs Immature 0.1 0 - 0.4 HOUSE Granulocytes 10e9/L [facility] Absolute 0.0 HOUSE Nucleated RBC [facility] Specimen Anatomical Collection Method Collection Time Receive d Time (Source) Location / / Volume Laterality Blood specimen 05/08/2017 5:00 AM 017 5:06 (specimen) CDT AM CDT Stephany Farley MD LAB - BLOOD ORDERABLES Performing Organization Address City/State/ZIP Code Phon e Number M [facility] [address] [address] [phone] [facility] [address] [address], [facility] [phone] (ABNORMAL) Basic metabolic panel (05/08/2017 5:00 AM CDT) athologist Signature Sodium 140 133 - 144 HOUSE mmol/L [facility] Potassium 4.1 3.4 - 5.3 HOUSE mmol/L [facility] Chloride 109 94 - 109 HOUSE mmol/L [facility] Carbon Dioxide 20 20 - 32 HOUSE mmol/L [facility] Anion Gap 11 3 - 14 HOUSE mmol/L [facility] Glucose 106 (H) 70 - 99 HOUSE mg/dL [facility] Urea Nitrogen 19 7 - 30 HOUSE mg/dL [facility] Creatinine 1.24 0.66 - HOUSE 1.25 mg/dL [facility] GFR Estimate 57 (L) >60 HOUSE mL/min/1.[address] Comment: Non GFR Calc GFR Estimate If Black 69 >60 mL/min/1.7m2 F [facility] Comment: GFR Calc Calcium 8.8 8.5 - 10.1 mg/dL [facility] Specimen Anatomical Collection Method Collection Time Receive d Time (Source) Location / / Volume Laterality Blood specimen 05/08/2017 5:00 AM 017 5:06 (specimen) CDT AM CDT Stephany Farley MD LAB - BLOOD ORDERABLES Performing Organization Address City/State/ZIP Code Phon e Number M [facility] [address] [address] [facility] [address] [address], [place] [phone] CT Head w/o Contrast (05/07/2017 5:04 PM [...] 7 4:25 CDT PM CDT Miladys [facility] POCT Performing Organization Address City/State/ZIP Code Phon e Number FV POINT OF CARE TEST, GLUCOSE POINT OF CARE TEST, GLUCOSE ECHO COMPLETE WITH OPTISON (05/07/2017 11:36 AM CDT) Anatomical Region Laterality Modality Echocardiography Specimen (Source) Anatomical Collection Method Collection Time Re ceived Time Location / / Volume Laterality 05/07/2017 10:53 AM CDT Narrative 05/07/2017 1:17 PM T [id number] [facility] [id number]^RUSTY^KAMARI^ [facility] Echocardiography Laboratory [address] [place] [address], [place] [address] Name: SPEEDY MCDUFFIE : 1940 Study Date: 05/07/2017 10:53 AM Age: 76 yrs Gender: Male Patient Location: [facility] Reason For Study: Afib Ordering Physician: TWAN [...] note might be different from the original. [id number]^RUSTY^KAMARI^ [facility] Echocardiography Laboratory [address] [place] [id number] Name: SPEEDY MCDUFFIE : 1940 Study Date: 05/07/2017 10:53 AM Age: 76 yrs Gender: Male Patient Location: [facility] Reason For Study: Afib Ordering Physician: TWAN [...] Signature Bilirubin Direct 0.2 0.0 - 0.2 HOUSE mg/dL [facility] Bilirubin Total 0.5 0.2 - 1.3 HOUSE mg/dL [facility] Albumin 2.6 (L) 3.4 - 5.0 HOUSE g/dL [facility] Protein Total 6.2 (L) 6.8 - 8.8 HOUSE g/dL [facility] Alkaline 156 (H) 40 - 150 HOUSE Phosphatase U/L [facility] ALT 34 0 - 70 U/L [facility] AST 46 (H) 0 - 45 U/L [facility] Specimen Anatomical Collection Method Collection Time Receive d Time (Source) Location / / Volume Laterality Blood specimen 05/07/2017 4:50 AM 017 4:55 (specimen) CDT AM CDT Stephany Farley MD LAB - BLOOD ORDERABLES Performing Organization Address City/State/ZIP Code Phon e Number M [facility] [address] [address] [phone] [facility] [address] [address], [place] [phone] (ABNORMAL) Basic metabolic panel (05/07/2017 4:50 AM CDT) Analysis Performed At Patho logist Time Signature Sodium 143 133 - 144 HOUSE mmol/L [facility] Potassium 4.8 3.4 - 5.3 HOUSE mmol/L [facility] Chloride 114 (H) 94 - 109 HOUSE mmol/L [facility] Carbon Dioxide 20 20 - 32 HOUSE mmol/L [facility] Anion Gap 9 3 - 14 HOUSE mmol/L [facility] Glucose 130 (H) 70 - 99 HOUSE mg/dL [facility] Urea Nitrogen 25 7 - 30 HOUSE mg/dL [facility] Creatinine 1.52 (H) 0.66 - HOUSE 1.25 mg/dL [facility] GFR Estimate 45 (L) >60 HOUSE mL/min/1.[address] Comment: Non GFR Calc GFR Estimate If Black 54 (L) >60 mL/min/1.7m2 F [facility] Comment: GFR Calc Calcium 8.8 8.5 - 10.1 mg/dL [facility] Specimen Anatomical Collection Method Collection Time Receive d Time (Source) Location / / Volume Laterality Blood specimen 05/07/2017 4:50 AM 017 4:55 (specimen) CDT AM CDT Stephany Farley MD LAB - BLOOD ORDERABLES Performing Organization Address City/State/ZIP Code Phon e Number M [facility] [address] [address] [phone] [facility] [address] [address], [facility] [phone] Magnesium (05/07/2017 4:50 AM CDT) P athologist Signature Magnesium 2.3 1.6 - 2.3 HOUSE mg/dL [facility] Specimen Anatomical Collection Method Collection Time Receive d Time (Source) Location / / Volume Laterality Blood specimen 05/07/2017 4:50 AM 017 4:55 (specimen) CDT AM CDT Stephany Farley MD LAB - BLOOD ORDERABLES Performing Organization Address City/State/ZIP Code Phon e Number [facility] [address] [place], [place] [address] [facility] [address] [place] [address], [place] [phone] Phosphorus (05/07/2017 4:50 AM CDT) P athologist Signature Phosphorus 3.3 2.5 - 4.5 HOUSE mg/dL [facility] Specimen Anatomical Collection Method Collection Time Receive d Time (Source) Location / / Volume Laterality Blood specimen 05/07/2017 4:50 AM 017 4:55 (specimen) CDT AM CDT Stephany Farley MD LAB - BLOOD ORDERABLES Performing Organization Address City/State/ZIP Code Phon e Number [facility] [address] [place] [address] [facility] [address] [place] [address], [place] [phone] (ABNORMAL) CBC with platelets differential (05/07/2017 4:50 AM CDT) Component Value Ref Test Analysis Performed At [facility] gist Range Method Time Signature WBC 11.9 (H) 4.0 - HOUSE 11.0 [facility] 10e9/L [facility] RBC Count 3.79 (L) 4.4 - HOUSE 5.9 [facility] 10e12/L [facility] Hemoglobin 12.5 (L) 13.3 - HOUSE 17.7 [facility] g/dL [facility] Hematocrit 37.5 (L) 40.0 - HOUSE 53.0 % [facility] MCV 99 78 - 100 [facility] MCH 33.0 26.5 - HOUSE 33.0 pg [facility] MCHC 33.3 31.5 - HOUSE 36.5 [facility] g/dL [facility] RDW 13.5 10.0 - HOUSE 15.0 % [facility] Platelet Count 150 150 - HOUSE 450 [facility] 10e9/L [facility] Diff Method Manual HOUSE Differential [facility] % Neutrophils 92.0 % [facility] % Lymphocytes 3.0 % [facility] % Monocytes 5.0 % [facility] % Eosinophils 0.0 % [facility] % Basophils 0.0 % [facility] Absolute 10.9 (H) 1.6 - HOUSE Neutrophil 8.3 [facility] 10e9/L [facility] Absolute 0.4 (L) 0.8 - HOUSE Lymphocytes 5.3 [facility] 10e9/L [facility] Absolute 0.6 0.0 - HOUSE Monocytes 1.3 [facility] 10e9/L [facility] Absolute 0.0 0.0 - HOUSE Eosinophils 0.7 [facility] 10e9/L [facility] Absolute 0.0 0.0 - HOUSE Basophils 0.2 [facility] [address] RBC Morphology Normal [facility] Platelet Confirming HOUSE Estimate automated cell [facility] Specimen Anatomical Collection Method Collection Time Receive d Time (Source) Location / / Volume Laterality Blood specimen 05/07/2017 4:50 AM 017 4:55 (specimen) CDT AM CDT Stephany Farley MD LAB - BLOOD ORDERABLES Performing Organization Address City/State/ZIP Code Phon e Number [facility] [address] [address] [facility] [address] [address], [place] [phone] Calcium (05/06/2017 5:18 PM CDT) P athologist Signature Calcium 8.6 8.5 - 10.1 HOUSE mg/dL [facility] Specimen Anatomical Collection Method Collection Time Receive d Time (Source) Location / / Volume Laterality Blood specimen 05/06/2017 5:18 PM 017 5:23 (specimen) CDT PM CDT Jaswinder Goins MD LAB - BLOOD ORDERABLES Performing Organization Address City/State/ZIP Code Phon e Number [facility] [address] [address] [phone] [facility] [address] [address], [place] [phone] Magnesium (1200) (05/06/2017 5:18 PM CDT) P athologist Signature Magnesium 1.9 1.6 - 2.3 HOUSE mg/dL [facility] Specimen Anatomical Collection Method Collection Time Receive d Time (Source) Location / / Volume Laterality Blood specimen 05/06/2017 5:18 PM 017 5:23 (specimen) CDT PM CDT Jaswinder Goins MD LAB - BLOOD ORDERABLES Performing Organization Address City/State/ZIP Code Phon e Number [facility] [address] [place] [address] [phone] [facility] [address] [place] [address], [place] [phone] EKG 12-lead, tracing only (05/06/2017 5:08 PM CDT) Patholo gist Method Time Signature Interpretation ECG Click View RADIOLOGY Image link RESULTS to view waveform and result Specimen (Source) Anatomical Collection Method Collection Time Re ceived Time Location / / Volume Laterality 05/06/2017 5:08 PM CDT Jaswinder Goins MD ECG ORDERABLES Performing Organization Address City/[facility]/ZIP Code Phon e Number RADIOLOGY RESULTS (ABNORMAL) CBC with platelets (05/06/2017 4:45 AM CDT) Analysis Performed At Patho logist Time Signature WBC 14.4 (H) 4.0 - 11.0 HOUSE 10e9/L [facility] RBC Count 3.85 (L) 4.4 - 5.9 HOUSE 10e12/L [facility] Hemoglobin 12.5 (L) 13.3 - HOUSE 17.7 g/dL [facility] Hematocrit 38.3 (L) 40.0 - HOUSE 53.0 % [facility] MCV 100 78 - 100 HOUSE fl [facility] MCH 32.5 26.5 - HOUSE 33.0 pg [facility] MCHC 32.6 31.5 - HOUSE 36.5 g/dL [facility] RDW 13.3 10.0 - HOUSE 15.0 % [facility] Platelet Count 135 (L) 150 - 450 HOUSE 10e9/L [facility] Specimen Anatomical Collection Method Collection Time Receive d Time (Source) Location / / Volume Laterality Blood specimen 05/06/2017 4:45 AM 017 4:54 (specimen) CDT AM CDT Miladys Mccullough MD LAB - BLOOD ORDERABLES Performing Organization Address City/[facility]/ZIP Code Phon e Number [facility] [address] [place] [address] [phone] [facility] [address] [place] [address], [place] [phone] (ABNORMAL) Hepatic panel (05/06/2017 4:45 AM CDT) Analysis Performed At Patho logist Time Signature Bilirubin Direct 0.2 0.0 - 0.2 HOUSE mg/dL [facility] Bilirubin Total 0.6 0.2 - 1.3 HOUSE mg/dL [facility] Albumin 2.6 (L) 3.4 - 5.0 HOUSE g/dL [facility] Protein Total 6.0 (L) 6.8 - 8.8 HOUSE g/dL [facility] Alkaline 144 40 - 150 HOUSE Phosphatase U/L [facility] ALT 33 0 - 70 U/L [facility] AST 57 (H) 0 - 45 U/L [facility] Specimen Anatomical Collection Method Collection Time Receive d Time (Source) Location / / Volume Laterality Blood specimen 05/06/2017 4:45 AM 017 4:54 (specimen) CDT AM CDT Miladys Mccullough MD LAB - BLOOD ORDERABLES Performing Organization Address City/State/ZIP Code Phon e Number [facility] [address] [place] [address] [facility] [address] [place] [address], [place] [phone] (ABNORMAL) Basic metabolic panel (05/06/2017 4:45 AM CDT) Analysis Performed At Patho logist Time Signature Sodium 143 133 - 144 HOUSE mmol/L [facility] Potassium 4.5 3.4 - 5.3 HOUSE mmol/L [facility] Chloride 115 (H) 94 - 109 HOUSE mmol/L [facility] Carbon Dioxide 20 20 - 32 HOUSE mmol/L [facility] Anion Gap 8 3 - 14 HOUSE mmol/L [facility] Glucose 129 (H) 70 - 99 HOUSE mg/dL [facility] Urea Nitrogen 39 (H) 7 - 30 HOUSE mg/dL [facility] Creatinine 1.79 (H) 0.66 - HOUSE 1.25 mg/dL [facility] GFR Estimate 37 (L) >60 HOUSE mL/min/1.[address] Comment: Non GFR Calc GFR Estimate If Black 45 (L) >60 mL/min/1.7m2 F [facility] Comment: GFR Calc Calcium 7.8 (L) 8.5 - 10.1 mg/dL [facility] Specimen Anatomical Collection Method Collection Time Receive d Time (Source) Location / / Volume Laterality Blood specimen 05/06/2017 4:45 AM 017 4:54 (specimen) CDT AM CDT Miladys Mccullough MD LAB - BLOOD ORDERABLES Performing Organization Address City/State/ZIP Code Phon e Number [facility] [address] [address] [facility] [address] [address], [facility] [phone] (ABNORMAL) Glucose by meter (05/06/2017 4:17 AM [...] Time Signature Sodium 144 133 - 144 HOUSE mmol/L [facility] Potassium 5.0 3.4 - 5.3 HOUSE mmol/L [facility] Chloride 113 (H) 94 - 109 HOUSE mmol/L [facility] Carbon Dioxide 21 20 - 32 HOUSE mmol/L [facility] Anion Gap 10 3 - 14 HOUSE mmol/L [facility] Glucose 148 (H) 70 - 99 HOUSE mg/dL [facility] Urea Nitrogen 46 (H) 7 - 30 HOUSE mg/dL [facility] Creatinine 1.95 (H) 0.66 - HOUSE 1.25 mg/dL [facility] GFR Estimate 34 (L) >60 HOUSE mL/min/1.[address] Comment: Non GFR Calc GFR Estimate If Black 41 (L) >60 mL/min/1.7m2 F [facility] Comment: GFR Calc Calcium 7.8 (L) 8.5 - 10.1 mg/dL [facility] Specimen Anatomical Collection Method Collection Time Receive d Time (Source) Location / / Volume Laterality Blood specimen 05/05/2017 10:35 7 (specimen) PM CDT 10:46 PM CDT Miladys Mccullough MD LAB - BLOOD ORDERABLES Performing Organization Address City/State/ZIP Code Phon e Number [facility] [address] [address] [phone] [facility] [address] [address], [place] [phone] (ABNORMAL) Blood gas arterial with oxyhemoglobin (1200) (05/05/2017 8:20 PM CDT) Patholo gist Method Time Signature pH Arterial 7.23 (L) 7.35 - HOUSE 7.45 pH [facility] pCO2 Arterial 45 35 - 45 HOUSE mm Hg [facility] pO2 Arterial 159 (H) 80 - 105 HOUSE mm Hg [facility] Bicarbonate 19 (L) 21 - 28 HOUSE Arterial mmol/L [facility] FIO2 BIPAP HOUSE 60 [facility] Oxyhemoglobin 99 92 - 100 HOUSE Arterial % [facility] Base Deficit Art 8.2 mmol/L [facility] Comment: Reference range: -9.0 to 1.8 Specimen Anatomical Collection Method Collection Time Receive d Time (Source) Location / / Volume Laterality Blood specimen 05/05/2017 8:20 PM 017 8:25 (specimen) CDT PM CDT Aubrey Irvin MD LAB - BLOOD ORDERABLES Performing Organization Address City/State/ZIP Code Phon e Number [facility] [address] [place] [address] [facility] [address] [place] [address], [facility] [phone] (ABNORMAL) Glucose by meter (05/05/2017 8:06 PM [...] PM CDT Miladys Mccullough MD LAB - [employer] POCT Performing Organization Address City/State/ZIP Code Phon [...] negative amphetamine is 500 ng/mL or less. [facility] Barbiturates Qual Negative NEG [facility] Urine Cutoff for a negative barbiturate is 200 ng/mL or less. [facility] Benzodiazepine Negative NEG [facility] Qual Urine Cutoff for a negative benzodiazepine is 200 ng/mL or less . [facility] Cannabinoids Qual Negative NEG [facility] Urine Cutoff for a negative cannabinoid is 50 ng/mL or less. [facility] Cocaine Qual Negative NEG [facility] Urine Cutoff for a negative cocaine is 300 ng/mL or less. [facility] Opiates Positive NEG [facility] Qualitative Urine Cutoff for a positive opiat e is greater than 300 ng/mL. This is an unconfirmed [facility] screening result to be used for medical purposes only. HOSPITAL (A) PCP Qual Urine Negative NEG [facility] Cutoff for a negative PCP is 25 ng/mL or less. [facility] Specimen Anatomical Collection Method Collection Time Receive d Time (Source) Location / / Volume Laterality 05/05/2017 5:20 PM 7 7:11 CDT PM CDT Miladys Mccullough MD LAB - URINE ORDERABLES Performing Organization Address City/State/ZIP Code Phon e Number [facility] [address] [place] [address] [phone] [facility] [address] [place] [address], [place] [phone] (ABNORMAL) Urine Microscopic (05/05/2017 5:20 PM CDT) [facility] [employer] Method Time Signature WBC Urine O - 2 0 - 2 HOUSE /HPF [facility] RBC Urine O - 2 0 - 2 HOUSE /HPF [facility] Cast Urine 2-5 0 - 2 HOUSE HYALINE /LPF [facility] Bacteria Urine Few (A) NEG /HPF [facility] Mucous Urine Present (A) NEG /LPF [facility] Specimen Anatomical Collection Method Collection Time Receive d Time (Source) Location / / Volume Laterality 05/05/2017 5:20 PM 7 5:29 CDT PM CDT Miladys Mccullough MD LAB - URINE ORDERABLES Performing Organization Address City/State/ZIP Code Phon e Number [facility] [id number] [place], [place] [address] (ABNORMAL) UA reflex to Microscopic and Culture (05/05/2017 5:20 PM CDT) Component Value Ref Test Analysis Performed At [facility] BioIQ Range Method Time Signature Color Urine Yellow [facility] Appearance Urine Clear [facility] Glucose Urine Negative NEG HOUSE mg/dL [facility] Bilirubin Urine Negative NEG [facility] Ketones Urine Negative NEG HOU[facility] mg/dL [facility] Specific [place] 1.020 1.003 - HOUSE Urine 1.035 [facility] Blood Urine Negative NEG [facility] pH Urine 5.5 5.0 - HOUSE 7.0 pH [facility] Protein Albumin 30 (A) NEG HOUSE Urine mg/dL [facility] Urobilinogen 0.2 0.2 - HOUSE Urine 1.0 [facility] EU/dL [place] Nitrite Urine Negative [facility]G [facility] [facility] Leukocyte Negative NEG HOUSE Esterase Urine [facility] [place] Source Catheterized HOUSE Urine [facility] [place] Specimen Anatomical Collection Method Collection Time Receive d Time (Source) Location / / Volume Laterality 05/05/2017 5:20 PM 7 5:29 CDT PM CDT Miladys Mccullough MD LAB - URINE ORDERABLES Performing Organization Address City/[facility]/ZIP Code Phon e Number [facility] [place] [address] [place] [address] Blood culture (05/05/2017 4:30 PM CDT) [facility] gist Method Time Signature Specimen Blood Left [facility] Special Aerobic and HOUSE Requests anaerobic [facility] bottles [place] received Culture Micro No growth [...] MICRO GENERAL ORDERABL ES Performing Organization Address City/[facility]/ZIP [facility] [place] Number INFECTIOUS DISEASES [address] [place] [address] DIAGNOSTIC LABORATORY, [address] [address] [address] [place] [address], [facility] [phone] [place] INFECTIOUS DISEASE [address] [place] [address], [facility] DIAGNOSTIC LABORATORY Lactic acid whole blood (05/05/2017 3:50 PM CDT) P athologist Signature Lactic Acid 1.5 0.7 - 2.1 HOUSE mmol/L [facility] Specimen Anatomical Collection Method Collection Time Receive d Time (Source) Location / / Volume Laterality 05/05/2017 3:50 PM 7 4:06 CDT PM CDT Leesa Martinez MD LAB - BLOOD ORDERABLES Performing Organization Address City/State/ZIP Code Phon e Number [facility] [address] [address] [phone] [facility] [address] [address], [facility] [phone] Blood culture (05/05/2017 3:45 PM CDT) [facility] gist Method Time Signature Specimen Blood Left [facility] Special Aerobic and HOUSE Requests anaerobic [facility] ED bottles [place] received Culture Micro [...] Code Phon e Number INFECTIOUS DISEASES [address] [place] [address] DIAGNOSTIC LABORATORY, [address] [address], [facility] [address] [address], [facility] [phone] [place] INFECTIOUS DISEASE [address] [place], [place] [address] DIAGNOSTIC LABORATORY Chest XR, 1 [...] Signature pH Arterial 7.22 (L) 7.35 - HOUSE 7.45 pH [facility] pCO2 Arterial 48 (H) 35 - 45 HOUSE mm Hg [facility] pO2 Arterial 112 (H) 80 - 105 HOUSE mm Hg [facility] Bicarbonate 20 (L) 21 - 28 HOUSE Arterial mmol/L [facility] Oxyhemoglobin 97 92 - 100 HOUSE Arterial % [facility] Base Deficit Art 7.5 mmol/L [facility] Comment: Reference range: -9.0 to 1.8 Specimen Anatomical Collection Method Collection Time Receive d Time (Source) Location / / Volume Laterality Blood specimen 05/05/2017 3:33 PM 017 3:54 (specimen) CDT PM CDT Leesa Martinez MD LAB - BLOOD ORDERABLES Performing Organization Address City/State/ZIP Code Phon e Number [facility] [address] [address] [facility] [address] [address], U [phone] Troponin POCT (05/05/2017 3:29 PM CDT) P [...] LAB - BEAKER POCT Performing Organization Address [facility] Phon e Number FV POINT OF CARE TEST, HANDHELD METER POINT OF CARE TEST, HANDHELD METER EKG 12 lead (05/05/2017 3:24 PM CDT) [facility] gist Method Time Signature Interpretation ECG Click View RADIOLOGY Image link RESULTS to view waveform and result Specimen (Source) Anatomical Collection Method Collection Time Re ceived Time Location / / Volume Laterality 05/05/2017 3:24 PM CDT Leesa Martinez MD ECG ORDERABLES Performing Organization Address City/[facility]/ZIP Code Phon e Number RADIOLOGY RESULTS (ABNORMAL) Glucose by meter (05/05/2017 3:23 PM CDT) P athologist Signature Glucose 116 (H) 70 - 99 POINT OF CARE mg/dL TEST, GLUCOSE Specimen Anatomical Collection Method Collection Time Receive d Time (Source) Location / / Volume Laterality 05/05/2017 3:23 PM 7 3:25 CDT PM CDT Provider Unknown LAB - BEAKER POCT Performing Organization Address City/[facility]/ZIP Code Phon e Number FV POINT OF CARE TEST, GLUCOSE POINT OF CARE TEST, GLUCOSE (ABNORMAL) CK total (05/05/2017 3:20 PM CDT) P athologist Signature CK Total 325 (H) 30 - 300 HOUSE U/L [facility] Specimen Anatomical Collection Method Collection Time Receive d Time (Source) Location / / Volume Laterality 05/05/2017 3:20 PM 7 3:31 CDT PM CDT Leesa Martinez MD LAB - BLOOD ORDERABLES Performing Organization Address City/State/ZIP Code Phon e Number M [facility] [address] [place] [address] [facility] [address] [place] [address], [place] [phone] Alcohol ethyl (05/05/2017 3:20 PM CDT) P athologist Signature Ethanol g/dL <0.01 <0.01 g/dL [facility] Specimen Anatomical Collection Method Collection Time Receive d Time (Source) Location / / Volume Laterality 05/05/2017 3:20 PM 7 3:31 CDT PM CDT Leesa Martinez MD LAB - BLOOD ORDERABLES Performing Organization Address City/State/ZIP Code Phon e Number M [facility] [address] [place] [address] [phone] [facility] [address] [place] [address], [place] [phone] Salicylate level (05/05/2017 3:20 PM CDT) [facility] gist Method Time Signature Salicylate <2 mg/dL [facility] Therapeutic: ?<20 [place] Anti inflammatory: ??15-30 [facility] Specimen Anatomical Collection Method Collection Time Receive d Time (Source) Location / / Volume Laterality Blood specimen 05/05/2017 3:20 PM 017 3:31 (specimen) CDT PM CDT Leesa Martinez MD LAB - BLOOD ORDERABLES Performing Organization Address City/State/ZIP Code Phon e Number M [facility] [address] [place] [address] [facility] [address] [address], [place] [phone] Acetaminophen level (05/05/2017 3:20 PM CDT) Component Value Ref Test Analysis Performed At Patholo gist Range Method Time Signature Acetaminophen <2 mg/L [facility] Level Therapeutic range: 10-20 mg/L [facility] Specimen Anatomical Collection Method Collection Time Receive d Time (Source) Location / / Volume Laterality Blood specimen 05/05/2017 3:20 PM 017 3:31 (specimen) CDT PM CDT Leesa Martinez MD LAB - BLOOD ORDERABLES Performing Organization Address City/State/ZIP Code Phon e Number M [facility] [address] [place] [address] [facility] [address] [address], [place] [phone] (ABNORMAL) Comprehensive metabolic panel (05/05/2017 3:20 PM CDT) Analysis Performed At [facility] logist Time Signature Sodium 141 133 - 144 HOUSE mmol/L [facility] Potassium 4.4 3.4 - 5.3 HOUSE mmol/L [facility] Chloride 107 94 - 109 HOUSE mmol/L [facility] Carbon Dioxide 23 20 - 32 HOUSE mmol/L [facility] Anion Gap 11 3 - 14 HOUSE mmol/L [facility] Glucose 126 (H) 70 - 99 HOUSE mg/dL [facility] Urea Nitrogen 48 (H) 7 - 30 HOUSE mg/dL [facility] Creatinine 2.41 (H) 0.66 - HOUSE 1.25 mg/dL [facility] GFR Estimate 26 (L) >60 HOUSE mL/min/1.[address] Comment: Non GFR Calc GFR Estimate If Black 32 (L) >60 mL/min/1.7m2 F [facility] Comment: GFR Calc Calcium 8.6 8.5 - 10.1 mg/dL [facility] Bilirubin Total 0.5 0.2 - 1.3 mg/dL [facility] Albumin 3.3 (L) 3.4 - 5.0 g/dL [facility] Protein Total 6.9 6.8 - 8.8 g/dL [facility] Alkaline Phosphatase 166 (H) 40 - 150 U/L [facility] ALT 29 0 - 70 U/L [facility] AST 22 0 - 45 U/L [facility] Specimen Anatomical Collection Method Collection Time Receive d Time (Source) Location / / Volume Laterality Blood specimen 05/05/2017 3:20 PM 017 3:31 (specimen) CDT PM CDT Leesa Martinez MD LAB - BLOOD ORDERABLES Performing Organization Address City/State/ZIP Code Phon e Number [facility] [address] [address] [phone] [facility] [address] [address], [place] [phone] (ABNORMAL) CBC with platelets differential (05/05/2017 3:20 PM CDT) [facility] gist Method Time Signature WBC 17.7 (H) 4.0 - HOUSE 11.0 [facility] 10e9/L [facility] RBC Count 4.32 (L) 4.4 - 5.9 HOUSE 10e12/L [facility] Hemoglobin 14.3 13.3 - HOUSE 17.7 g/dL [facility] Hematocrit 42.9 40.0 - HOUSE 53.0 % [facility] MCV 99 78 - 100 [facility] MCH 33.1 (H) 26.5 - HOUSE 33.0 pg [facility] MCHC 33.3 31.5 - HOUSE 36.5 g/dL [facility] RDW 13.0 10.0 - HOUSE 15.0 % [facility] Platelet Count 170 150 - 450 HOUSE 10e9/L [facility] Diff Method Automated [facility] % Neutrophils 83.6 % [facility] % Lymphocytes 9.3 % [facility] % Monocytes 6.0 % [facility] % Eosinophils 0.7 % [facility] % Basophils 0.1 % [facility] % Immature 0.3 % HOUSE Granulocytes [facility] Nucleated RBCs 0 0 /100 [facility] Absolute 14.8 (H) 1.6 - 8.3 HOUSE Neutrophil 10e9/L [facility] Absolute 1.7 0.8 - 5.3 HOUSE Lymphocytes 10e9/L [facility] Absolute 1.1 0.0 - 1.3 HOUSE Monocytes 10e9/L [facility] Absolute 0.1 0.0 - 0.7 HOUSE Eosinophils 10e9/L [facility] Absolute 0.0 0.0 - 0.2 HOUSE Basophils 10e9/L [facility] Abs Immature 0.1 0 - 0.4 HOUSE Granulocytes 10e9/L [facility] Absolute 0.0 HOUSE Nucleated RBC [facility] Specimen Anatomical Collection Method Collection Time Receive d Time (Source) Location / / Volume Laterality Blood specimen 05/05/2017 3:20 PM 017 3:31 (specimen) CDT PM CDT Leesa Martinez MD LAB - BLOOD ORDERABLES Performing Organization Address City/State/ZIP Code Phon e Number M [facility] [address] [address] [phone] [facility] [address] [address], [facility] [phone] documented in this encounter Visit Diagnoses Diagnosis [...] foil and gently remove. Place on to [facility] immediately. Administration with liquid unnecessary oxyCODONE (ROXICODONE) [...] mg 0825 (Given - Provider: Aubrey Morales RN)6755 (Given - Provider: Rosette Reese RN)6455 (Given - Provider: Rosette Reese RN) 0921 (Given - Provider: Aubrey Morales RN)1624 (Given - Provider: Joaquina Acosta RN)2217 (Given - Provider: Joaquina Acosta RN) 0914 [...] RN) 0536 (Given - Provider: Jumana Rodriguez, OJSE)1335 (Given - Provider: Aubrey Morales RN)221 (Given [...] Aubrey Morales RN) 0921 (Given - Provider: Aurbey Morales RN) 0914 (Giv en - Provider: Torres Altamiarno) 10 mg, Oral, DAILY, First dose on [...] Irritant.
documented in this encounter Care Teams Palaeontologist Relationship Specialty Start Date End Date Eduardo Coleyit PCP - General Family Practice 05/05/17 05/11/[address] [address] [facility] [place] P[facility] - General 05/12/17 [address] [place] [address] documented as of this encounter
--- OUTSIDE RECORDS SUMMARY | 2022-06-05 13:49 | XMS_ITS | Encounter Summary ---
:1940 Author Organization [place] Address [address] [place] [address] Care Team Providers Name Role Phone Primary Dr, Unknown MD Primary Care Provider Unavailable Reason for Visit Reason Comments Back Pain Leg Pain Encounter Details Date Type Department Care Team Description [facility] [address] [place] [address] Acute low back pain 04/30/2017 Encounter [facility] Dilshad John MD [address] [place] [address] due to trauma [address] Provider, Historical [address] [place] [phone] Social History Tobacco Use Types Packs/Day Years [...] John MD - 04/30/2017 2:09 PM CDT [facility] MEDICINE DISCHARGE SUMMARY Primary Care Physician: [...] COURSE: Nondisplaced insufficiency type sacral fractures - [facility] consult, patient of Dr Mcclure and his injury was described to him -no surgery inidcated - IV dilaudid. He also does ok with oral oxycodone and [place] - taper off IV opioids and optimize [...] MULTIVITAMIN Tab Dose: 1 tablet Generic drug: multivitamin,eb-hjxz-xcuupcyt 1 tablet, Oral, DAILY desonide 0.05 % [...] in 2-3 weeks or as needed at [facility]. Call our scheduling line at [phone] to make an appointment if you do [...] Comments Follow-up in: [facility] Follow-up appointment with Primary Care [...] EMR for more detailed significant labs, imaging, automobile sales consultant notes etc. Total time spent on discharge: More than 35 minutes Dilshad John MD Pager #: CC:Kannan Nieto MD documented in this encounter Medications at Time of Discharge Medication Sig Dispensed Refills Start Date End Date acetaminophen (TYLENOL Take 650 mg by 0 [...] surgery of the Pain). musculoskeletal system, NEC METOPROLOL TARTRATE PO Take 50 mg by mouth 0 11/05/2018 2 times daily. MISOPROSTOL PO Take 200 mcg by 0 [...] Ca Plunkett - 04/30/2017 12:19 PM CDT STATEMENT PROCESSOR TREATMENT NOTE Name: Speedy Hendricks : 1940 Acupuncture Treatment Patient Type: Medical Intervention Reason: Urinary Retention Patient complaint:: urinary retention Acupuncture (Points):: Hyaden (6,4,3); St 28, St 29, LI 4, [...] much better. Daughter will transport. TANJA Rodríguez HAT CHECKER 04/30/2017 Rae Campo PA-C - 04/29/2017 4:26 [...] Plans: Nondisplaced insufficiency type sacral fractures - [facility] consult, patient of Dr Mcclure and his injury was described to him -no surgery inidcated - IV dilaudid. He also does ok with oral oxycodone and [place] - taper off IV opioids and optimize [...] Lumbar Spine Without Contrast Result Date: 04/29/2017 [facility] MR LUMBAR SPINE WO CONTRAST 04/28/2017 2:12 [...] right neural foraminal stenosis. Dilshad John MD [facility] Hospitalist Jeanette Santana, [facility] - 04/28/2017 8:59 AM CDT Pharmacy Note - Admission Medication History Pertinent Provider Information: n/a Prior To Admission ([facility]OWER [facility]ATCHMAN) med list completed and updated in EMR. [facility] Med List Medication Sig Note Last Dose [...] day. 04/27/2017 at just started 04/27 ??? multivitamin,vs-gpvg-khnrmrby (COMPLETE MULTIVITAMIN) Tab Take 1 tablet by mouth daily. Past Week at Unknown time ??? pramipexole (MIRAPEX) 0.5 MG tablet Take 0.5 mg by mouth at bedtime. 04/26/2017 ??? terazosin (HYTRIN) 5 MG capsule Take 5 mg by mouth at bedtime. 04/26/2017 ??? [DISCONTINUED] acetaminophen (TYLENOL ARTHRITIS PAIN) 650 MG CR tablet Take by mouth. 04/28/2017:[facility] Re[facility] Sig: Takes 1 tablet as needed. ??? [DISCONTINUED] atorvastatin (LIPITOR) 40 MG tablet Take 40 mg by mouth. 04/28/2017: [facility] Received Sig: Take 1 tablet by mouth once daily. ??? [DISCONTINUED] desonide (DESOWEN) 0.05 % lotion Apply topically. 04/28/2017: Received from: [facility] Received Sig: Apply topically to affected area(s) 2 timesdaily. ??? [DISCONTINUED] diclofenac (VOLTAREN) 75 MG EC tablet Take 75 mg by mouth. 04/28/2017: [facility]: [facility] Received Sig: Take 1 tablet by mouth 2 times daily with meals. ??? [DISCONTINUED] diflorasone (PSORCON) 0.05 % ointment Apply topically. 04/28/2017: [facility]: [facility] Received Sig: Apply topically to affected area(s) once daily. ??? [DISCONTINUED] gabapentin (NEURONTIN) 300 MG capsule Start 1 pill QHS, increase up to TID prn 04/28/2017: Received from: [facility] ??? [DISCONTINUED] HYDROcodone-acetaminophen (NORCO) 7.5-325 mg per tablet Take 1 tablet by mouth. 04/28/2017: [facility]: [facility] Received Sig: Take 1 tabletby mouth every 4 hours if needed for Pain May take 1.5 every 4 hours for severe pain ??? [DISCONTINUED] metoprolol tartrate (LOPRESSOR) 50 MG tablet Take 50 mg by mouth. 04/28/2017: [facility]: [facility] Received Sig: Take 1 tablet by mouth 2 times daily. ??? [DISCONTINUED] miSOPROStol (CYTOTEC) 200 MCG tablet Take 200 mcg by mouth. 04/28/2017: Received [facility]: [facility] Received Sig: Take 1 tablet by mouth 2 times daily with meals. ??? [DISCONTINUED] morphine (MS CONTIN) 15 MG 12 hr tablet Take 15 mg by mouth. 04/28/2017: Received [facility]: [facility] Received Sig: Take 1 tablet by mouth 2 times daily ??? [DISCONTINUED] multivitamin (ONE A DAY) per tablet Take by mouth. 04/28/2017: [facility]: [facility] Received Sig: take 1 tablet by oral route once daily with food ??? [DISCONTINUED] pramipexole (MIRAPEX) 0.5 MG tablet Take 0.5 mg by mouth. 04/28/2017: [facility] Received Sig: Take 1 tablet by mouth at bedtime. ??? [DISCONTINUED] terazosin (HYTRIN) 5 MG capsule Take 5 mg by mouth. 04/28/2017: [facility] Received Sig: Take 1 capsule by mouth at bedtime. Information source(s): Patient Summary of Changes to [facility] Med List New: dulcolax, calcium +d Discontinued: none Changed: diclofenac to qday; misoprostol to qday; mirapex to qhs; Patient was asked about OTC/herbal products specifically. [facility] med list reflects this. Based on the pharmacist???s assessment, the [facility] med list information appears reliable Patient appears compliant: Yes Allergies were reviewed, assessed, and updated with the patient. Medications currently not available for use during hospital stay. Family/Patient dental sales representative states they will bring topicals to [facility]. Thank you for the opportunity to participate [...] point he can't function at home. - [facility] consult, patient of Dr Mcclure - YEVGENIY dilaudid. He also does ok with oral oxycodone and [place] - NPO, IVMF -Also has ordered for [...] care. Talked to patient. Dilshad John MD [facility] Hospitalist documented in this encounter H&P Notes Mili Monet MD - 04/28/2017 2:30 AM CDT Admission History and Physical Speedy HendricksSHREYA 1940, [facility] Prd Acute low back pain due to trauma [M54.5] PCP: Kannan Nieto MD, Code status: Full Code Extended Emergency Contact Information Primary Emergency Contact: Sania Hendricks Address: [address] [place] [address] Mobile Relation: Spouse Secondary Emergency Contact: Chastity Hendricks [facility] Mobile Relation: Child Date of Service: 04/28/2017 [...] point he can't function at home. - [facility] consult, patient of Dr Mcclure - IV dilaudid. He also does ok with oral oxycodone and [place] - NPO, IVMF - Consider steroid but [...] not show any fracture. He was prescribed [place]. The pain did not improve. Patient saw [...] L3-4 ; Surgeon: Hang Mcclure MD; Location: [facility]; Service: ??? TONSILLECTOMY Allergies Reviewed by myself [...] mouth 2 (two) times a day. ??? multivitamin,nc-brad-qcbssbel (COMPLETE MULTIVITAMIN) Tab Take by mouth. ??? [...] Social History Narrative He severed in the [employer]. 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 Family History Reviewed by myself with [...] COMPATIBLE Unit Type O Pos Unit Number [id number] Status Released Component Red Blood Cells PRODUCT CODE [id number] Crossmatch Result Value Ref Range Crossmatch COMPATIBLE Unit Type O Pos Unit Number [id number] Status Released Component Red Blood Cells PRODUCT CODE [id number] Creatinine Result Value Ref Range Creatinine 1.34 (H) 0.70 - 1.30 mg/dL GFR MDRD Af Amer >60 >60 mL/min/1.73m2 GFR MDRD Non Af Amer 52 (L) >60 mL/min/1.73m2 Antibody Identification Result Value Ref Range Antibody ID > 3hr for more blood;Anti-Albion No new imaging obtained EKG: Normal sinus rhythm rate 62 bpm. No previous tracing for comparison Pertinent Labs/EKG/XRAY Reviewed Social History, Family History, PMH, PSH, Medications and Allergies reviewed. Total time: 70 minutes with >50% time spent with coordination of care and counseling reviewing plan of care with patient and family 04/28/2017 Mili Monet MD [facility] Medicine Service documented in this encounter Consult Notes Rae Campo PA-C - 04/28/2017 12:49 PM CDT ORTHOPEDIC CONSULTATION Consultation Speedy HendricksSHREYA 1940, [facility] Prd Acute low back pain due to trauma [M54.5] PCP: Kannan Nieto MD, Code status: Full Code Extended Emergency Contact Information Primary Emergency Contact: Sania Hendricks Address: [address] [place], [place] [id number] [facility] Mobile Relation: Spouse Secondary Emergency Contact: Chastity Hendricks [facility] Mobile Relation: Child CHIEF COMPLAINT: Acute low [...] scan ordered which he had done at [facility]. He was scheduled to see [...] day. 04/27/2017 at just started 04/27 ??? multivitamin,vd-vpbw-ajuivnvf (COMPLETE MULTIVITAMIN) Tab Take 1 tablet by [...] Mcclure and Dr. Burger, on-call surgeon for [facility] and they are in agreement with [...] follow this patient. Thank you for including [facility] in the care of Speedy Hendricks. [...] L3-4 ; Surgeon: Hang Mcclure MD; Location: [facility] Main OR; Service: ??? TONSILLECTOMY Past Medical [...] l stenosis. Narrative 04/29/2017 9:20 AM CDT [facility] MR LUMBAR SPINE WO CONTRAST 04/28/2017 2:12 [...] note might be different from the original. [facility] MR LUMBAR SPINE WO CONTRAST 04/28/2017 2:12 [...] 12-lead, tracing only (04/28/2017 2:05 AM CDT) [facility] Method Time Signature Systolic Blood 184 mmHg 04/28/2017 [facility] Pressure 8:51 AM CDT CONVERSION Diastolic Blood 98 mmHg 04/28/2017 [facility] Pressure 8:51 AM CDT CONVERSION Ventricular Rate 60 BPM 04/28/2017 [facility] 8:51 AM CDT CONVERSION Atrial Rate 60 BPM 04/28/2017 [facility] 8:51 AM CDT CONVERSION ME Interval 160 ms 04/28/2017 [facility] 8:51 AM CDT CONVERSION QRS Duration 88 ms 04/28/2017 [facility] 8:51 AM CDT CONVERSION QT 432 ms 04/28/2017 [facility] 8:51 AM CDT CONVERSION QTc 432 ms 04/28/2017 [facility] 8:51 AM CDT CONVERSION P Mcdonough 16 degrees 04/28/2017 [facility] 8:51 AM CDT CONVERSION R AXIS 16 degrees 04/28/2017 [facility] 8:51 AM CDT CONVERSION T Mcdonough 19 degrees 04/28/2017 [facility] 8:51 AM CDT CONVERSION Interpretation Normal sinus rhythm 04/28/2017 HE [facility] ECG Normal ECG 8:51 AM CDT CONVERSION No previous ECGs available Confirmed by VEL ??SUKHJINDER WELSH LOC:JN ([id number]) on 04/28/2017 8:5 1:37 AM Specimen Anatomical [...] Lumbago documented in this encounter Care Teams New Car Sales Manager Relationship Specialty Start Date End Date Primary Dipak Kasper MD PCP - General 09/21/1204/18 documented as of this encounter
--- OUTSIDE RECORDS SUMMARY | 2022-06-05 13:49 | XMS_ITS | Encounter Summary ---
:1940 Author Organization [place] Address [address] [place] [address] Care Team Providers Name Role Phone Clinic, [facility] Primary Care Provider [phone] Reason for Visit Reason Onset Date Comments Medication Question 05/13/2017 meds Encounter Details Date Type Department Care Team Description 05/13/2017 Telephone [facility] Heart Abimbola Brown M edication Question Clinic Tram GARCIA (meds) [address] [facility] [address] [place] [address] Social History Tobacco Use Types Packs/Day [...] and LM for her to call this publicity writer back. JNelsonRN documented in this encounter Plan of Treatment Not on filedocumented as of this encounter Visit Diagnoses Not on filedocumented in this encounter Care Teams Education Officer Relationship Specialty Start Date End Date Clinic, [facility] PCP - General 05/12/17 [address] [place] [address] documented as of this encounter
--- OUTSIDE RECORDS SUMMARY | 2022-06-05 13:49 | XMS_ITS | Encounter Summary ---
:1940 Author Organization [facility] Address [address] [place] [address] Care Team Providers Name Role Phone Celina Coely Primary Care Provider Reason for Visit Auth/Cert Specialty Diagnoses / Procedures Referred By Contact Refer red To Contact Intensive Care Diagnoses Opioid overdose, accidental or unintentional, initial encounter (H) Aspiration pneumonia, unspecified aspiration pneumonia type, unspecified laterality, unspecified part of lung (H) Unresponsiveness Intensive Care [address] [place] [address] [address] Phone: Referral ID Status Reason Start Date Expiration Date Visits Requ ested Visits Authorized [id number] 1 1 Encounter Details Date Type Department Care Team Description 05/06/2017 Anesthesia Event [facility] BATH SOLUTION MAKER POLICE CAPTAIN PRECINCT [address] [place] [address] ANES [phone] [place] [id number] (Wo rk) Anesthesia Record Procedure Summary Procedure Name Responsible Anesthesiologist Anesthesia Start Ti me Anesthesia Stop Time IV START 05/06/17212005/06/172140 Events Date Time Event Comment 05/06/20172120 An Start 2140 Quick Note Diagnosis: Venou s Insufficiency Procedure: IV Start Ordering Yadirai an: Dr Rodriguez Location:[facility] ICU 357 2141 An Stop Electronically s [...] RN Darby, Timo thy J, (difficulty standing, BATH SOLUTION MAKER MATERIALS SCIENTIST alerted mental status) Peripheral IV 05/06/17; 2135; 20 G; 05/06/17 2135 by 05/08/17 0300 by Right; Lower forearm; Albino Benavidez APRN Graa lum, Scott, RN Alcohol; Injectable; POLICE CAPTAIN PRECINCT Tolerated well Peripheral IV 05/06/17; 2140; 20 G; 05/06/17 2140 by 05/08/17 1619 by Right; Upper forearm; Albino Benavidez APRN With am Rosette Alcohol; Injectable; POLICE CAPTAIN PRECINCT JOSE Clifton Tolerated well documented in this [...] on filedocumented in this encounter Care Teams Radiator Specialist Relationship Specialty Start Date End Date Celina Coley PCP - General Family Practice 05/05/17 05/11/[address] [address] documented as of this encounter
--- OUTSIDE RECORDS SUMMARY | 2022-06-05 13:50 | XMS_ITS | Encounter Summary ---
:1940 Author Organization [place] Address [address] [place] [address] Care Team Providers Name Role Phone Primary DrDipak MD Primary Care Provider Unavailable Celina Coley Primary Care Provider [facility] [place] Primary Care Provider [phone] Jon White MD Unavailable [phone] Ramiro Loco MD Unavailable Encounter Details Date Type Department Care Team Description 05/03/2014 Surgery - [facility] Hang [place], [facility] [address] [place] [address] [facility] [address] [place] [address] [phone] (Wo rk) Social History Tobacco Use Types [...] documented as of this encounter Care Teams Traffic Clerk Relationship Specialty Start Date End Date Primary Dipak Kasper MD PCP - General 09/21/1204/18 Celina Coley PCP - General Family Practice 05/05/17 05/11/[address] [address] [facility] - General 05/12/[address] [address] Jon White Assigned Surgical Provider 08/10/20 12/08/20 MD Aubrey [address] [place] [address] Ramiro Loco MD Assigned Heart and 08/10/20 05/11/21 [address] Vascular Provider [place] [address] documented as of this encounter
--- OUTSIDE RECORDS SUMMARY | 2022-06-05 13:50 | XMS_ITS | Encounter Summary ---
:1940 Author Organization [facility] Address [address] [place] [address]. [place] [address] Care Team Providers Name Role Phone Primary Dr, Unknown MD Primary Care Provider Unavailable Encounter Details Date Type Department Care Team Description 09/30/2012 Anesthesia Event [facility] Viraj Silva PeriOp Letty Tejeda MD [address] [place] [address] [place] [place] [address] [place], [place] [address] (Wo rk) Anesthesia Record [...] Type Details Placement Removal Peripheral IV 09/30/12; (E LEARNING COORDINATOR); 20 09/30/12 0000 by 09/30/12 14 45 [...] 97.00%. Additional Comments: Doing Well. Euvolemic. AKollitzMD 6 DEALER Anesthesia Preprocedure Evaluation - Damian Silva MD [...] benefits and alternatives discussed with: patient or metals sales representative. Possibility of blood products discussed. History & Physical Review History and physical reviewed; no interval change. . 6 DEALER documented in this encounter Miscellaneous Notes Anesthesia Care Transfer Note - Lety Guzman APRN CRNA - 09/30/2012 12:47 PM CST Anesthesia Care Transfer Note Patient: Speedy Hendricks Transferred to: Phase II Patient vital signs: stable Airway: none To phase 2. criteria met. 6 DEALER documented in this encounter Plan of Treatment Not on filedocumented as of this encounter Visit Diagnoses Not on filedocumented in this encounter Administered Medications Inactive Administered Medications - up to 3 most recent administrations Medication Order MAR Action Action Date Dose Rate Site clindamycin (CLEOCIN) IVPB 900 mg Given 09/30/2012 11:52 AM BIG 6 DEALER 900 mg Routine, 900 mg, Intravenous, EVERY 6 HOURS PRN, Starting on Yesenia 09/30/12 at 1034, Intra-Op Dose. Give every 6 hours while patient in surgery, starting 6 hours after pre-op dose. DO NOT GIVE intra-op dose if CrCl < 10 mL/min (on dialysis). If CrCL < 50 mL/min, double the time interval between doses., Pre-procedure fentaNYL (SUBLIMAZE) injection Given 09/30/2012 12:15 PM BIG 6 DEALER 50 mcg PRN, moderate to severe pain, Starting on Yesenia 09/30/12 at 1215, Anesthesia Intra-op lactated ringers infusion New Bag 09/30/2012 11:39 AM BIG 6 DEALER mL Intravenous, CONTINUOUS PRN, Anesthesia Intra-op, Starting on Yesenia 09/30/12 at 1139, Until Yesenia 09/30/12 at 1248 midazolam (VERSED) injection Given 09/30/2012 11:54 AM BIG 6 DEALER 2 mg PRN, anxiety, Starting on Yesenia 09/30/12 at 1145, Anesthesia Intra-op Given 09/30/2012 11:45 AM BIG 6 DEALER 2 mg propofol (DIPRIVAN) Rate/Dose 09/30/2012 12:11 20 mcg/kg/min 11.2 mL /hr injection Change PM BIG 6 DEALER CONTINUOUS PRN, Starting on Yesenia 09/30/12 at 1202, Anesthesia Intra-op Rate/Dose Change 09/30/2012 12:04 PM BIG 6 DEALER 10 mcg/kg/min 5.6 mL/hr New Bag 09/30/2012 12:02 PM BIG 6 DEALER 55 mcg/kg/min 30.7 mL/hr documented in this encounter Care Teams Computer Compositor Relationship Specialty Start Date End Date Primary Dipak Kasper, PCP - General 09/21/1204/18 documented as of this encounter
--- OUTSIDE RECORDS SUMMARY | 2022-06-05 13:50 | XMS_ITS | Encounter Summary ---
:1940 Author Organization [place] Address [address] [place] [address] Care Team Providers Name Role Phone Primary Dr, Unknown MD Primary Care Provider Unavailable Reason for Visit Auth/Cert - Closed Specialty Diagnoses / Procedures Referred By Contact Refer red To Contact Surgery Diagnoses painful internal fixation left foot Rh Periop Services Procedures REMOVE HARDWARE FOOT [address] [place], [place] [address] Fax: Referral ID Status Reason Start Date Expiration Date Visits Requ ested Visits Authorized [id number] Closed 1 1 Encounter Details Date Type Department Care Team Description 09/30/2012 Hospital Encounter [facility] Alvin Trujillo following Andres Castellanos DPM surgery of the PreOP/PostOP [address] [place] musculoskeletal system, [address] [facility] E NEC (Primary Dx) [facility] [address] [place] [address] [phone] Social History Tobacco Use Types Packs/Day Years [...] Comments Blood Pressure 130/79 09/30/2012 2:45 PM LEARNING SUPPORT RESOURCE ROOM TEACHER Pulse - - Temperature 36.2 ??C (97.2 ??F) 09/30/2012 2:45 PM LEARNING SUPPORT RESOURCE ROOM TEACHER Respiratory Rate 16 09/30/2012 2:45 PM LEARNING SUPPORT RESOURCE ROOM TEACHER Oxygen Saturation 98% 09/30/2012 2:45 PM LEARNING SUPPORT RESOURCE ROOM TEACHER Inhaled Oxygen Concentration - - Weight 93 kg (205 lb) 09/30/2012 10:24 AM LEARNING SUPPORT RESOURCE ROOM TEACHER Height 170.2 cm (5' 7) 09/30/2012 10:24 AM LEARNING SUPPORT RESOURCE ROOM TEACHER Body Mass Index 32.11 09/30/2012 10:24 AM LEARNING SUPPORT RESOURCE ROOM TEACHER documented in this encounter Discharge Instructions Discharge [...] DR. SAL TRUJILLO M.D. CLINIC PHONE NUMBER: [phone]. NING SUPPORT RESOURCE ROOM TEACHER documented in this encounter Medications at Time [...] Trujillo DPM - 09/23/2012 4:09 PM CST NING SUPPORT RESOURCE ROOM TEACHER documented in this encounter Nursing Notes Iwona Ruiz RN - 09/30/2012 12:33 PM CST First Panel started at 1210 and ended at 1230. Second panel started at 1230 and ended at 1237. Jen Ruiz RN NING SUPPORT RESOURCE ROOM TEACHER Iwona Ruiz RN - 09/30/2012 12:22 PM CST Patient did not want his hardware that was removed from procedure on 09/30/[address] Trujillo. Jen Ruiz RN NING SUPPORT RESOURCE ROOM TEACHER documented in this encounter OR Notes OR Anesthesia - Sal Trujillo DPM - 10/01/2012 9:43 AM CST NING SUPPORT RESOURCE ROOM TEACHER documented in this encounter Miscellaneous Notes Op [...] DPM MT: [id number] Name: ELDA HENDRICKS Account: [id number] : 1940 Procedure Date: 09/30/2012 Document: [id number] cc: Ramiro Walker MD NING SUPPORT RESOURCE ROOM TEACHER Brief Op Note - Sal Trujillo DPM - 09/30/2012 1:01 PM CST [facility] Podiatry/Foot and Ankle Surgery Brief Operative Note Pre-operative diagnosis: Painful Internal Fixation left foot Painful recurrence of toenail right great toe Post-operative diagnosis same Procedure: Procedure(s): Hardware Removal left foot - Deep Surgical matrixectomy right great toe Surgeon: SAL TRUJILLO DPM Assistants(s): Anesthesia: MAC Estimated blood loss: 5 cc NING SUPPORT RESOURCE ROOM TEACHER documented in this encounter Plan of Treatment Not on filedocumented as of this encounter Procedures Procedure Name Priority Date/Time Associated Diagnosis Comme nts XR FOOT PORT LEFT 3 Routine 09/30/2012 1:44 PM Re sults for this VIEWS LEARNING SUPPORT RESOURCE ROOM TEACHER procedure are i n the results section. EXCISION, TOENAIL 09/30/2012 11:41 AM painful internal LEARNING SUPPORT RESOURCE ROOM TEACHER fixation left foot Special Needs 5# Hx MRSA REMOVAL, HARDWARE, FOOT 09/30/2012 11:41 AM LEARNING SUPPORT RESOURCE ROOM TEACHER painfu l internal fixation left foot Special Needs # Hx MRSA EKG 12-LEAD, TRACING ONLY Routine 09/30/2012 11:38 AM LEARNING SUPPORT RESOURCE ROOM TEACHER Results for this procedure are in the resu lts section. HIM ECG SCAN Routine 09/30/2012 documented in this encounter Results X-ray LEFT Foot 3 vw port (09/30/2012 1:44 PM LEARNING SUPPORT RESOURCE ROOM TEACHER) Anatomical Region Laterality Modality Left Foot Left Other Specimen (Source) Anatomical Collection Method Collection Time Re ceived Time Location / / Volume Laterality 09/30/2012 1:44 PM LEARNING SUPPORT RESOURCE ROOM TEACHER Impressions 10/01/2012 10:47 AM LEARNING SUPPORT RESOURCE ROOM TEACHER IMPRESSION: Postoperative and degenerative change. No acute abnormality. ODILON RANDOLPH MD Narrative 10/01/2012 10:47 AM LEARNING SUPPORT RESOURCE ROOM TEACHER LEFT FOOT THREE OR MORE VIEWS PORTABLE [...] EKG 12-lead, tracing only (09/30/2012 11:38 AM LEARNING SUPPORT RESOURCE ROOM TEACHER) Component Value Ref Range Test Analysis Performed Pathologis t Method Time At Signature Ventricular Rate 64 BPM RADIOLOGY RESULTS Atrial Rate 64 BPM RADIOLOGY RESULTS DC Interval 154 ms RADIOLOGY RESULTS QRS Duration 80 ms RADIOLOGY RESULTS QT 410 ms RADIOLOGY RESULTS QTc 422 ms RADIOLOGY RESULTS P [place] -1 degrees RADIOLOGY RESULTS R AXIS -9 degrees RADIOLOGY RESULTS T [place] -7 degrees RADIOLOGY RESULTS Interpretation Sinus rhythm [...] / / Volume Laterality 09/30/2012 11:38 AM LEARNING SUPPORT RESOURCE ROOM TEACHER Doctor Unknown MD ECG ORDERABLES Performing Organization Address City/State/ZIP Code Phon e Number RADIOLOGY RESULTS ECG - HIM ECG Scan (09/30/2012) Narrative This result has an attachment that is no t available. Sal Trujillo DPJami ECG ORDERABLES documented in this encounter Visit Diagnoses Diagnosis Aftercare following surgery of the [facility], NEC - Primary documented in this encounter Administered Medications Inactive Administered Medications - up to 3 most recent administrations Medication Order MAR Action Action Date Dose Rate Site fentaNYL (SUBLIMAZE) injection Given 09/30/2012 2:16 PM LEARNING SUPPORT RESOURCE ROOM TEACHER 50 m cg 25-50 mcg 25-50 mcg, Intravenous, EVERY 2 MIN PRN, other, acute pain, Starting on Yesenia 09/30/12 at 1251, MAX cumulative dose = 250 mcg. Use Fentanyl initially, as a short acting agent for acute pain control. If insufficient, or a longer acting agent is needed, begin Morphine or Hydromorphone if ordered., PACU Given 09/30/2012 1:33 PM LEARNING SUPPORT RESOURCE ROOM TEACHER 50 mcg HYDROcodone-acetaminophen 5-325 MG per Given 09/30/2012 2:16 PM LEARNING SUPPORT RESOURCE ROOM TEACHER 1 tablet tablet 1-2 tablet 1-2 tablet, Oral, ONCE, On Yesenia 09/30/12 at 1330, For 1 dose, One time prior to discharge., Post-procedure lactated ringers infusion New Bag 09/30/2012 1:33 PM LEARNING SUPPORT RESOURCE ROOM TEACHER 1,000 mLs 100 mL/hr at 100 mL/hr, Intravenous, CONTINUOUS, Continue until IV catheter is weaned, PACU, Starting on Yesenia 09/30/12 at 1300, Until Yesenia 09/30/12 at 1723 documented in this encounter Active and Recently Administered Medications Times are shown in LEARNING SUPPORT RESOURCE ROOM TEACHER. Scheduled Medication Order 09/28/2012 09/29/2012 09/30/2012 HYDROcodone-acetaminophen [...] 1152 (Given - Provider: Lety Guzman, [facility] H[facility]PICE AIDE) 900 mg, Intravenous, for 60 Minutes, EMIL [...] Intra-procedure documented in this encounter Care Teams School Cafeteria Head Cook Relationship Specialty Start Date End Date Primary Dipak Kasper MD PCP - General 09/21/1204/18 documented as of this encounter
--- OUTSIDE RECORDS SUMMARY | 2022-06-05 13:50 | XMS_ITS | Encounter Summary ---
:1940 Author Organization [place] Address [facility] [place] [address] Care Team Providers Name Role Phone Unavailable Primary Care Provider Unavailable Reason for Visit Reason Comments Surgical Followup 02/06 left foot post op and r ight great toe post op. Encounter Details Date Type Department Care Team Description 04/02/2011 Office Visit [facility] Yumiko Castellanos DPM (Primary Dx) [address] [place] [address] [place], [place] [id number] Social History Tobacco Use Types Packs/Day Years [...]
--- OUTSIDE RECORDS SUMMARY | 2022-06-05 13:50 | XMS_ITS | Encounter Summary ---
:1940 Author Organization [place] Address [address] [place] [address] Care Team Providers Name Role Phone Primary DrDipak MD Primary Care Provider Unavailable Celina Coley Primary [facility] Provider [facility] Primary Care Provider [phone] Jon White MD Unavailable [phone] Ramiro Loco MD Unavailable Encounter Details Date Type Department Care Team Description 11/29/2014 [facility] [address] [place] [address] [place], [place] [phone] [address] Social History Tobacco Use Types Packs/Day Years [...] Hydration: adequate Anesthetic complications: no Additional Notes: ATIONS WELDER Anesthesia Preprocedure Evaluation - Néstor Stack - 11/29/2014 10:00 AM CST Anesthesia Evaluation Patient summary reviewed No history of anesthetic complications Airway Mallampati: II Neck ROM: full Pulmonary - negative ROS and normal exam Cardiovascular (+) hypertension well controlled, (-) past [place], CAD, CABG/stent, dysrhythmias ECG reviewed Rhythm: regular Rate: normal Neuro/Psych - negative ROS Endo/Other (+) diabetes mellitus type 2 well controlled, obesity, GI/Hepatic/Renal - negative ROS Dental - normal exam Anesthesia Plan Planned anesthetic: general endotracheal Decadron (8 mg), Zofran. ASA 2 Induction: intravenous Anesthetic plan and risks discussed with: patient Post-op plan: routine recovery ATIONS WELDER documented in this encounter Miscellaneous Notes Anesthesia [...] documented as of this encounter Care Teams Alumnae Secretary Relationship Specialty Start Date End Date Primary Dipak Kasper MD PCP - General 09/21/1204/18 Celina Coley PCP - General Family Practice 05/05/17 05/11/[address] [address] [facility] - General 05/12/[address] [id number] Jon White Assigned Surgical Provider 08/10/20 12/08/20 MD Aubrey [address] [place], [place] [id number] Ramiro Loco MD Assigned Heart and 08/10/20 05/11/21 [address] Vascular Provider [place] [address] documented as of this encounter
--- OUTSIDE RECORDS SUMMARY | 2022-06-05 13:50 | XMS_ITS | Encounter Summary ---
:1940 Author Organization [place] Address [address] [place] [address] Care Team Providers Name Role Phone Primary Dr, Unknown MD Primary Care Provider Unavailable Reason for Visit Reason Comments Surgical Followup bilat infections Encounter Details Date Type Department Care Team Description 10/05/2012 Office Visit [facility] Sal Chaparro [facility] are following Clinic Bohemia F, DPM surgery of the [address] [place] [address] musculoskeletal system, [place], [place] E NEC (Primary Dx) [phone] [place] [address] [place], [place] [address] Social History Tobacco Use Types [...] Comments Blood Pressure 136/80 10/05/2012 12:04 PM GI TECHNICIAN Pulse 60 10/05/2012 12:04 PM GI TECHNICIAN Temperature 36.8 ??C (98.2 ??F) 10/05/2012 12:04 PM GI TECHNICIAN Respiratory Rate - - Oxygen Saturation - - Inhaled Oxygen Concentration - - Weight 93 kg (205 lb) 10/05/2012 12:04 PM GI TECHNICIAN Height 170.2 cm (5' 7) 10/05/2012 12:04 PM GI TECHNICIAN Body Mass Index 32.11 10/05/2012 12:04 PM GI TECHNICIAN documented in this encounter Progress Notes Sal [...] or concerns and follow-up in 1-2 wks. TECHNICIAN documented in this encounter Plan of Treatment Not on filedocumented as of this encounter Procedures Procedure Name Priority Date/Time Associated Diagnosis Comme nts CBC WITH PLATELETS & Routine 10/05/2012 12:21 Aftercare follow ing Results for this DIFFERENTIAL PM GI TECHNICIAN surgery of the procedure are in musculoskeletal system, the results NEC section. URIC ACID Routine 10/05/2012 12:21 Aftercare following Resu lts for this PM GI TECHNICIAN surgery of the procedure are in musculoskeletal system, the results NEC section. BASIC METABOLIC Routine 10/05/2012 12:21 Aftercare following R esults for this PANEL PM GI TECHNICIAN surgery of the procedure are in musculoskeletal system, the results NEC section. WOUND CULTURE Routine 10/05/2012 12:20 Aftercare following Res ults for this AEROBIC BACTERIAL PM GI TECHNICIAN surgery of the procedur e are in musculoskeletal system, the results NEC section. documented in this encounter Results (ABNORMAL) Basic metabolic panel (Ca, Cl, CO2, Creat, Gluc, K, Na, BUN) (10/05/2012 12:21 PM GI TECHNICIAN) Analysis Performed At [facility] logist Time Signature Sodium 140 133 - 144 [place] mmol/L [facility] Potassium 4.8 3.4 - 5.3 [place] mmol/L [facility] Chloride 103 94 - 109 [facility] mmol/L [facility] Carbon Dioxide 25 20 - 32 [facility] mmol/L [facility] Anion Gap 12 6 - 17 [place] mmol/L [facility] Glucose 108 (H) 60 - 99 [place] mg/dL [facility] Urea Nitrogen 23 7 - 30 [place] mg/dL [facility] Creatinine 1.41 (H) 0.66 - [facility] 1.25 mg/dL [facility] GFR Estimate 50 (L) >60 [place] mL/min/1.7 [facility] m2 LAB GFR Estimate If 60 (L) >60 [place] Black mL/min/1.7 [facility] m2 LAB Calcium 9.5 8.5 - 10.4 [place] mg/dL [facility] Specimen Anatomical Collection Method Collection Time Receive d Time (Source) Location / / Volume Laterality Blood specimen 10/05/2012 12:21 2 (specimen) PM GI TECHNICIAN 12:22 PM GI TECHNICIAN Sal Chaparro DPM LAB - BLOOD ORDERABLES Performing Organization Address City/State/ZIP Code Phon e Number [facility] [address] [place] [address] [facility] (ABNORMAL) CBC with platelets and differential (10/05/2012 12:21 PM GI TECHNICIAN) [facility] gist Method Time Signature WBC 7.8 4.0 - [facility] 11.0 [facility] 10e9/L [facility] RBC Count 4.45 4.4 - 5.9 [place] 10e12/L [facility] Hemoglobin 14.6 13.3 - [facility] 17.7 g/dL [facility] Hematocrit 43.2 40.0 - [facility] 53.0 % [facility] MCV 97 78 - 100 [facility] MCH 32.8 26.5 - [place] 33.0 pg [facility] MCHC 33.8 31.5 - [place] 36.5 g/dL [facility] RDW 12.9 10.0 - [place] 15.0 % [facility] Platelet Count 152 150 - 450 [place] 10e9/L [facility] Diff Method Automated [place] Method [facility] % Neutrophils 62.1 40 - 75 % [facility] % Lymphocytes 18.9 (L) 20 - 48 % [facility] % Monocytes 13.4 (H) 0 - 12 % [facility] % Eosinophils 5.2 0 - 6 % [facility] % Basophils 0.4 0 - 2 % [facility] Absolute 4.9 1.6 - 8.3 [place] Neutrophil 10e9/L [facility] Absolute 1.5 0.8 - 5.3 [place] Lymphocytes 10e9/L [facility] Absolute 1.1 0.0 - 1.3 [place] Monocytes 10e9/L [facility] Absolute 0.4 0.0 - 0.7 [place] Eosinophils 10e9/L [facility] Absolute 0.0 0.0 - 0.2 [place] Basophils 10e9/L [facility] Specimen Anatomical Collection Method Collection Time Receive d Time (Source) Location / / Volume Laterality Blood specimen 10/05/2012 12:21 2 (specimen) PM GI TECHNICIAN 12:22 PM GI TECHNICIAN Sal Chaparro DPM LAB - BLOOD ORDERABLES Performing Organization Address City/State/ZIP Code Phon e Number [facility] [address] [place] [address] [facility] Uric acid (10/05/2012 12:21 PM GI TECHNICIAN) P athologist Signature Uric Acid 7.1 3.5 - 8.5 [place] AMINA mg/dL CLINIC LAB Specimen Anatomical Collection Method Collection Time Receive d Time (Source) Location / / Volume Laterality Blood specimen 10/05/2012 12:21 2 (specimen) PM GI TECHNICIAN 12:22 PM GI TECHNICIAN Sal Chaparro DPJami LAB - BLOOD ORDERABLES Performing Organization Address City/State/ZIP Code Phon e Number [facility] [address] [place] [address] [facility] Wound culture (10/05/2012 12:20 PM GI TECHNICIAN) [facility] Method Time Signature Specimen Other [facility] Culture Micro No growth [facility] MICROBIOLOGY Micro Report FINAL [facility] Status 10/07/2012 MICROBIOLOGY Specimen Anatomical Collection Method Collection Time Receive d Time (Source) Location / / Volume Laterality Specimen from 10/05/2012 12:20 10/05/2012 wound (specimen) PM GI TECHNICIAN 12:41 PM CS T Sal Chaparro DPM LAB - MICRO GENERAL ORDERABL ES Performing Organization Address City/State/ZIP Code Phon e Number [facility] [address] [place] [address] [facility] MICROBIOLOGY documented in this encounter Visit Diagnoses Diagnosis Aftercare following [facility] the [facility] [place], NEC - Primary documented in this encounter Care Teams Motor Vehicle Operator Road Supervisor Relationship Specialty Start Date End Date Primary Dipak Kasper MD PCP - General 09/21/1204/18 documented as of this encounter
--- OUTSIDE RECORDS SUMMARY | 2022-06-05 13:50 | XMS_ITS | Encounter Summary ---
:1940 Author Organization [place] Address [address] [place] [address] Care Team Providers Name Role Phone Primary DrDipak MD Primary Care Provider Unavailable Celina Coley Primary Care Provider [facility] Primary Care Provider [phone] Jon White MD Unavailable [phone] Ramiro Loco MD Unavailable Gallito Gonzalez MD Unavailable Encounter Details Date Type Department Care Team Description 05/02/2014 Records - [facility] Cheryl Enriquez RN [address] [address] Social History Tobacco Use Types [...] weeks for routine followup. Isra Fregoso M.D. [facility] Mattie Urrutia - 05/04/2014 3:42 PM [...] - 05/07/2014 12:18 PM CDT Confirmed with [facility] acceptance of pt for PT and OT. Notified pt of [facility] PT and OT acceptance and informed pt and daughter agency will be contacting pt on Thursday, 05/08, to schedule appointment. MARIELA Diloln, [facility] Clinical Social Work User Support Specialist Luciano León - 05/07/2014 11:25 AM CDT [facility] Daily Progress Note Assessment/Plan: 1. Hypertension. [...] resolved, no tenderness or swelling. Isra Fregoso [facility] Date: 05/07/2014 Time: 10:42 AM Historical Provider - 05/06/2014 1:16 PM CDT [facility] met with pt re home health care services. Pt requested [facility] for PT and OT. [facility] contacted [facility] at [phone] making referral to this agency. Fax no is [phone]. [facility] will follow pt to discharge. Rita Urbina, BALANCE ENGINEER, [facility] Clinical Social Work Care Managedr Low Ramirez - 05/06/2014 12:12 PM CDT MANAGEMENT INTERNSHIP TREATMENT NOTE Name: Speedy Hendricks : 1940 Acupuncture Treatment Patient Type: Orthopedic Intervention Reason: Pain Pre-session Pain ratin Post-session Pain ratin Patient complaint:: (R) foot pain Acupunture (Points):: Du 20, Yin watts, (R) Gb 20, (R) St 34, 36, (R) Sp 8, (R) Si 4 Low Ramirez L.Ac. Date: 05/06/2014 Time: 12:12 PM Luciano León - 05/06/2014 11:44 AM CDT [facility] Daily Progress Note Assessment/Plan: 1. Hypertension. [...] to weight bear, equivocal SLR. Isra Fregoso [facility] Date: 05/06/2014 Time: 11:15 AM Lexie [...] Thank you for the consult. Eri Bah [facility] 05/05/2014 4:46 PM Ca Plunkett - 05/05/2014 3:50 PM CDT MANAGEMENT INTERNSHIP TREATMENT NOTE Name: Speedy Hendricks : 1940 [...] León S - 05/04/2014 2:20 PM CDT [facility] Daily Progress Note Assessment/Plan: 1. Hypertension. [...] Care Management should needs arise. Cedric Borrego, BALANCE ENGINEER, CR[employer] [facility] Lety Dickerson RN - 05/04/2014 12:00 PM [...] Luciano León - 05/03/2014 12:31 PM CDT [facility] Daily Progress Note Assessment/Plan: 1. Hypertension. [...] swab prior to antibiotic . Per J. Stearns/ClFern RN documented in this encounter H&P Notes [...] Revision L4 laminotomy. SURGEON: Dr. Tin Mcclure. MESH CUTTER: Mahesh Rodgers PA-C, who was needed for [...] was seen in the preop area of [facility] today, 05/03/2014. The low back was [...] the next 6 weeks. HANG MCCLURE MD [facility] D 05/03/2014 09:21:55 T 05/03/2014 12:31:48 R 05/03/2014 12:31:48 [id number] cc:LUCIANO GUERRA MD documented in this encounter [...] are negative for DVT. Luciano León MD [facility] US ORDERABLES XR Foot [...] evidence for acute fracture. Luciano León MD [facility] DIAGNOSTIC IMAGING ORDER BRAYDEN [...] changes in cervical spine. Misha Weaver MD [facility] DIAGNOSTIC IMAGING ORDER BRAYDEN [...] level of L4 pedicle. Hang Mcclure MD [facility] DIAGNOSTIC IMAGING ORDER BRAYDEN [...] documented as of this encounter Care Teams Safety Engineer Pressure Vessels Relationship Specialty Start Date End Date Primary DrDipak MD PCP - General 09/21/1204/18 Celina Coley PCP - General Family Practice 05/05/17 05/11/[address] [address] Kehinde Portillo PCP - General 05/12/[address] [address] Jon White Assigned Surgical Provider 08/10/20 12/08/20 MD Aubrey [address] [place] [address] Ramiro Loco MD Assigned Heart and 08/10/20 05/11/21 [address] Vascular Provider [place] [address] Gallito Gonzalez, Assigned Heart and 09/29/21 MD Vascular Provider [address] [place] [address] documented as of this encounter
--- OUTSIDE RECORDS SUMMARY | 2022-06-05 13:50 | XMS_ITS | Encounter Summary ---
:1940 Author Organization [place] Address [address] [place] [address] Care Team Providers Name Role Phone Primary Dr, Unknown MD Primary Care Provider Unavailable Reason for Visit Reason Comments Surgical Followup bilateral post op Encounter Details Date Type Department Care Team Description 10/22/2012 Office Visit [facility] Sal Chaparro re following Yariel Castellanos DPJami surgery of the [address] [place] [address] musculoskeletal system, [place] [address] E NEC (Primary Dx) [phone] [address] [place], [place] [address] Social History Tobacco Use Types [...] 93 kg (205 lb) 10/22/2012 9:14 AM TRUCK WASHER Height 170.2 cm (5' 7) 10/22/2012 9:14 AM TRUCK WASHER Body Mass Index 32.11 10/22/2012 9:14 AM TRUCK WASHER documented in this encounter Progress Notes Sal [...] questions or concerns and follow-up in prn. K WASHER documented in this encounter Nursing Notes 10/22/2012 9:00 AM CST >> MELL MAGANA Fri Oct 22, 2012 9:14 AM Patient presents with: Surgical Followup - bilateral post op Mell Magana CMA documented in this encounter Plan of Treatment Not on filedocumented as of this encounter Visit Diagnoses Diagnosis Aftercare following surgery of the [facility] [place] [place], NEC - Primary documented in this encounter Care Teams Senior Clinical Data Analyst Relationship Specialty Start Date End Date Primary Dipak Kasper MD PCP - General 09/21/1204/18 documented as of this encounter
--- OUTSIDE RECORDS SUMMARY | 2022-06-05 13:50 | XMS_ITS | Encounter Summary ---
:1940 Author Organization [place] Address [address] [place] [address] Care Team Providers Name Role Phone Unavailable Primary Care Provider Unavailable Reason for Visit Reason Comments Surgical Followup 02/06/11 post op left foot wi th hardware. pt is having pain. Encounter Details Date Type Department Care Team Description 07/30/2012 Office Visit [facility] Sal Chaparro pa in (Primary Dx); Yariel Castellanos DPM Enthesopathy of unspecified site [address] [place] [address] E [phone] [facility] [address] [place], [place] [address] Social History Tobacco Use Types [...] Procedure Time: 30 min Anesthesia: MAC Location: [facility] Pre-Operative Medications: Clindamycin 900 mg IV pre-op Special Instrumentation: Synthes mini locking plate screw driver helper documented in this encounter Nursing Notes 07/30/2012 [...]
--- OUTSIDE RECORDS SUMMARY | 2022-06-05 13:50 | XMS_ITS | Encounter Summary ---
:1940 Author Organization [place] Address [address] [place] [address] Care Team Providers Name Role Phone Primary DrDipak MD Primary Care Provider Unavailable Celina Coley Primary Care Provider [facility] Primary Care Provider [phone] Jon White MD Unavailable Ramiro Loco MD Unavailable Encounter Details Date Type Department Care Team Description 04/18/2014 [facility] Provider, [facility] Information Management [address] [facility] [address] [place] [address] Social History Tobacco Use Types Packs/Day Years [...] documented as of this encounter Care Teams [employer] Supervisor Relationship Specialty Start Date End Date Primary Dipak Kasper MD PCP - General 09/21/1204/18 Celina Coley PCP - General Family Practice 05/05/17 05/11/[address] [address] Kehinde Portillo PCP - General 05/12/[address] [address] Jon White Assigned Surgical Provider 08/10/20 12/08/20 MD Aubrey [address] [place] [address] Ramiro Loco MD Assigned Heart and 08/10/20 05/11/21 [address] Vascular Provider [place] [address] documented as of this encounter
--- OUTSIDE RECORDS SUMMARY | 2022-06-05 13:50 | XMS_ITS | Encounter Summary ---
:1940 Author Organization [place] Address [address] [place] [address] Care Team Providers Name Role Phone Unavailable Primary Care Provider Unavailable Reason for Visit Reason Comments Surgical Followup 02/06 left foot post op. Encounter Details Date Type Department Care Team Description 02/14/2011 Office Visit [facility] Sal Chaparro Afterca re following Yariel Castellanos DPM surgery of the [facility] [employer] [address] musculoskeletal system, [place] [address] E NEC (Primary Dx) [phone] [facility] [address] [place], [place] [address] Social History Tobacco Use Types [...] Component Value Ref Test Analysis Performed At [facility] Range Method Time Signature Specimen Toe GOLF Description [facility] Culture Micro Heavy growth GOLF Methicillin [facility] Staphylococcus aureus (MRSA) Micro Report FINAL 02/17/2011 GOLF Status [facility] Specimen Anatomical Collection Method Collection [...] Address City/State/ZIP Code Phon e Number M [facility] [address] [place] [address] [phone] [facility] documented in this encounter Visit Diagnoses Diagnosis Aftercare following surgery of the [facility] [place]keletal system, NEC - Primary documented in this encounter
--- OUTSIDE RECORDS SUMMARY | 2022-06-05 13:50 | XMS_ITS | Encounter Summary ---
:1940 Author Organization [place] Address [address] [place] [address] Care Team Providers Name Role Phone Primary Dr, Unknown MD Primary Care Provider Unavailable Reason for Visit Reason Onset Date Comments Patient/info Update 10/04/2012 Encounter Details Date Type Department Care Team Description 10/04/2012 Telephone [facility] Sal Chaparro, Patient/info Update Yumiko WELSH MD [address] [facility] [address] [facility] [phone] [place], [place] [id number] (Wo rk) Social History Tobacco Use Types [...] Sal Chaparro, DPJami - 10/05/2012 11:14 AM PROJECT MANAGEMENT PROFESSOR Spoke w/ pt and we will check him today (10/05/12) @ 11:30 ECT MANAGEMENT PROFESSOR Telephone Encounter - Amber Mead - 10/04/2012 11:[address] Nesbitt. ALINE Gordon. Please read. Message below. Let me know if I can assist at all. Amber Mead CMA ([facility]) ECT MANAGEMENT PROFESSOR Telephone Encounter - Sandra Melgar - 10/04/2012 10:[address] Nesbitt has placed this rx. Rx faxed. Jaime Melgar CMA ([facility]) ECT MANAGEMENT PROFESSOR Telephone Encounter - Amber Mead - 10/04/2012 [...] but patient feels lousy Spoke with DPM supervisor electronic coils, Dr. Green. He recommended Bactrim DS BID x 10 days Called RX into [facility] per patient's daughter request. Called Raquel back and left message on cell phone ([phone]), offered [address] appointment [address] [place] with Dr. Green if would like. Otherwise, f/u with Dr. Chaparro this week. Patient's daughter is requesting refill of [place] 5-325 - , can you approve and I can call in? Amber Mead CMA ([facility]) ECT MANAGEMENT PROFESSOR documented in this encounter Plan of Treatment Not on filedocumented as of this encounter Visit Diagnoses Diagnosis Ingrowing nail - Primary Pain in limb documented in this encounter Care Teams Photographic Platemaker Relationship Specialty Start Date End Date Primary Dr, Unknown, MD PCP - General 09/21/1204/18 documented as of this encounter
--- OUTSIDE RECORDS SUMMARY | 2022-06-05 13:50 | XMS_ITS | Encounter Summary ---
:1940 Author Organization [place] Address [facility] [place] [address] Care Team Providers Name Role Phone Unavailable Primary Care Provider Unavailable Reason for Visit Reason Comments Surgical Followup 02/06 left foot surgery. Seco nd metatarsal fracture nonunion, left foot Encounter Details Date Type Department Care Team Description 04/30/2011 Office Visit [facility] Sal Chaparro aftercare Clinic Yumiko Castellanos DPM (Primary Dx) [address] [place] [address] [place], [place] [id number] Social History Tobacco Use Types Packs/Day Years [...]
--- OUTSIDE RECORDS SUMMARY | 2022-06-05 13:50 | XMS_ITS | Encounter Summary ---
:1940 Author Organization [place] Address [address] [place] [address] Care Team Providers Name Role Phone Primary DrDipak MD Primary Care Provider Unavailable Celina Coley Primary Care Provider [facility] Primary Care Provider [phone] Jon White MD Unavailable [phone] Ramiro Loco MD Unavailable Encounter Details Date Type Department Care Team Description 05/02/2014 Anesthesia - [facility] Zoltan Arizmendi MD [address] [place] [address] [address] Social History Tobacco Use Types Packs/Day [...] documented as of this encounter Care Teams Color Strainer Relationship Specialty Start Date End Date Primary Dipak Kasper MD PCP - General 09/21/1204/18 Celina Coley PCP - General Family Practice 05/05/17 05/11/[address] [address] Kehinde Portillo PCP - General 05/12/[address] [address] Jon White Assigned Surgical Provider 08/10/20 12/08/20 MD Aubrey [address] [place] [address] Ramiro Loco MD Assigned Heart and 08/10/20 05/11/21 [address] [place] [address] Vascular Provider [place] [address] documented as of this encounter
--- OUTSIDE RECORDS SUMMARY | 2022-06-05 13:50 | XMS_ITS | Encounter Summary ---
:1940 Author Organization [facility] Address [address] [place] [address] Care Team Providers Name Role Phone Primary Dr, Unknown MD Primary Care Provider Unavailable Reason for Visit Auth/Cert - Closed Specialty Diagnoses / Procedures Referred By Contact Refer red To Contact Surgery Diagnoses painful internal fixation left foot Rh Periop Services Procedures REMOVE HARDWARE FOOT [address] [place], [place] [phone] Fax: Referral ID Status Reason Start Date Expiration Date Visits Requ ested Visits Authorized [id number] Closed 1 1 Encounter Details Date Type Department Care Team Description 09/30/2012 Surgery [facility] Daniel Trujillo har dware removel left [place] [facility] DPM foot [address] [place] [facility] [place] [phone] [place] [address] (Wo rk) Surgery Details Date/Time Status Location [...] Comments Blood Pressure 137/81 09/30/2012 10:30 AM ISSUING OPERATOR Pulse - - Temperature 35.9 ??C (96.6 ??F) 09/30/2012 10:24 AM ISSUING OPERATOR Respiratory Rate 20 09/30/2012 10:24 AM ISSUING OPERATOR Oxygen Saturation 98% 09/30/2012 10:24 AM ISSUING OPERATOR Inhaled Oxygen Concentration - - Weight 93 kg (205 lb) 09/30/2012 10:24 AM ISSUING OPERATOR Height 170.2 cm (5' 7) 09/30/2012 10:24 AM ISSUING OPERATOR Body Mass Index 32.11 09/30/2012 10:24 AM ISSUING OPERATOR documented in this encounter Discharge Instructions Discharge [...] DR. DANIEL TRUJILLO M.D. CLINIC PHONE NUMBER: [phone]. ING OPERATOR documented in this encounter Medications at [...] Trujillo DPM - 09/23/2012 4:09 PM CST ING OPERATOR documented in this encounter Nursing Notes Iwona Ruiz RN - 09/30/2012 12:33 PM CST First Panel started at 1210 and ended at 1230. Second panel started at 1230 and ended at 1237. Jen Ruiz RN ING OPERATOR wIona Ruiz RN - 09/30/2012 12:22 PM CST Patient did not want his hardware that was removed from procedure on 09/30/[address] Trujillo. Jen Ruiz RN ING OPERATOR documented in this encounter OR Notes OR Anesthesia - Daniel Trujillo DPM - 10/01/2012 9:43 AM CST ING OPERATOR documented in this encounter Miscellaneous Notes [...] DPM MT: [id number] Name: ELDA HENDRICKS Account: [id number] : 1940 Procedure Date: 09/30/2012 Document: [id number] cc: Ramiro Walker MD ING OPERATOR Brief Op Note - Daniel Trujillo DPM - 09/30/2012 1:01 PM CST [facility] Podiatry/Foot and Ankle Surgery Brief Operative Note Pre-operative diagnosis: Painful Internal Fixation left foot Painful recurrence of toenail right great toe Post-operative diagnosis same Procedure: Procedure(s): Hardware Removal left foot - Deep Surgical matrixectomy right great toe Surgeon: DANIEL TRUJILLO DPM Assistants(s): Anesthesia: MAC Estimated blood loss: 5 cc ING OPERATOR documented in this encounter Plan of Treatment Not on filedocumented as of this encounter Procedures Procedure Name Priority Date/Time Associated Diagnosis Comme nts XR FOOT PORT LEFT 3 Routine 09/30/2012 1:44 PM Re sults for this VIEWS ISSUING OPERATOR procedure are i n the results section. EXCISION, TOENAIL 09/30/2012 11:41 AM painful internal ISSUING OPERATOR fixation left foot Special Needs 5'# Hx MRSA REMOVAL, HARDWARE, FOOT 09/30/2012 11:41 AM ISSUING OPERATOR painfu l internal fixation left foot Special Needs 5'# Hx MRSA EKG 12-LEAD, TRACING ONLY Routine 09/30/2012 11:38 AM ISSUING OPERATOR Results for this procedure are in the resu lts section. HIM ECG SCAN Routine 09/30/2012 documented in this encounter Results X-ray LEFT Foot 3 vw port (09/30/2012 1:44 PM ISSUING OPERATOR) Anatomical Region Laterality Modality Left Foot Left Other Specimen (Source) Anatomical Collection Method Collection Time Re ceived Time Location / / Volume Laterality 09/30/2012 1:44 PM ISSUING OPERATOR Impressions 10/01/2012 10:47 AM ISSUING OPERATOR IMPRESSION: Postoperative and degenerative change. No acute abnormality. ODILON RANDOLPH MD Narrative 10/01/2012 10:47 AM ISSUING OPERATOR LEFT FOOT THREE OR MORE VIEWS PORTABLE [...] EKG 12-lead, tracing only (09/30/2012 11:38 AM ISSUING OPERATOR) Component Value Ref Range Test Analysis Performed Pathologis t Method Time At Signature Ventricular Rate 64 BPM RADIOLOGY RESULTS Atrial Rate 64 BPM RADIOLOGY RESULTS NE Interval 154 ms RADIOLOGY RESULTS QRS Duration 80 ms RADIOLOGY RESULTS QT 410 ms RADIOLOGY RESULTS QTc 422 ms RADIOLOGY RESULTS P Garner -1 degrees RADIOLOGY RESULTS R AXIS -9 degrees RADIOLOGY RESULTS T Garner -7 degrees RADIOLOGY RESULTS Interpretation Sinus rhythm [...] / / Volume Laterality 09/30/2012 11:38 AM ISSUING OPERATOR Doctor Unknown ECG ORDERABLES Performing Organization Address [...] 15 mLs Operative injection 0.5% (PF) PM ISSUING OPERATOR Site/Surgical S ite PRN, Starting on Yesenia 09/30/12 at 1238, Intra-procedure fentaNYL (SUBLIMAZE) injection 25-50 mcg Given 09/30/2012 2:16 PM ISSUING OPERATOR 50 mcg 25-50 mcg, Intravenous, EVERY 2 MIN PRN, other, acute pain, Starting on Yes[place] 09/30/12 at 1251, MAX cumulative dose = 250 mcg. Use Fentanyl initially, as a short acting agent for acute pain control. If insufficient, or a longer acting agent is needed, begin Morphine or Hydromorphone if ordered., PACU Given 09/30/2012 1:33 PM ISSUING OPERATOR 50 mcg HYDROcodone-acetaminophen 5-325 MG per Given 09/30/2012 2:16 PM ISSUING OPERATOR 1 tablet tablet 1-2 tablet 1-2 tablet, Oral, ONCE, On Yesenia 09/30/12 at 1330, For 1 dose, One time prior to discharge., Post-procedure lactated ringers infusion New Bag 09/30/2012 1:33 PM ISSUING OPERATOR 1,000 mLs 100 mL/hr at 100 mL/hr, Intravenous, CONTINUOUS, Continue until IV catheter is weaned, PACU, Starting on Yesenia 09/30/12 at 1300, Until Yesenia 09/30/12 at 1723 lidocaine (PF) (XYLOCAINE) Given 09/30/2012 12:40 PM 4 mLs Operative Site/Surgical 1 % injection ISSUING OPERATOR Site PRN, Starting on Yesenia 09/30/12 at 1238, Intra-procedure sodium chloride 0.9% Given 09/30/2012 12:41 PM 100 mLs Operative Site/Surgical (bottle) irrigation ISSUING OPERATOR Site PRN, Starting on Yesenia 09/30/12 at 1241, Area to irrigate and instructions: ., Intra-procedure documented in this encounter Active and Recently Administered Medications Times are shown in ISSUING OPERATOR. Scheduled Medication Order 09/28/2012 09/29/2012 09/30/2012 HYDROcodone-acetaminophen [...] 1152 (Given - Provider: Lety Guzman APRN PATIENT SERVICE SPECIALIST) 900 mg, Intravenous, for 60 Minutes, EMIL [...] Intra-procedure documented in this encounter Care Teams Supervisor Sintering Plant Relationship Specialty Start Date End Date Primary Dipak Kasper MD PCP - General 09/21/1204/18 documented as of this encounter
--- OUTSIDE RECORDS SUMMARY | 2022-06-05 13:50 | XMS_ITS | Encounter Summary ---
:1940 Author Organization [facility] Address [address] [place] [address] Care Team Providers Name Role Phone Unavailable Primary Care Provider Unavailable Reason for Visit Reason Comments Surgical Followup left foot post op. Encounter Details Date Type Department Care Team Description 09/17/2011 Office Visit [facility] Sal Chaparro y aftercare Clinic Yumiko Castellanos DPM (Primary Dx) [address] [facility] [phone] [place] [address] Social History Tobacco Use Types [...] a regular shoe on lt. F/U prn. NG FLOOR SERVICE WORKER documented in this encounter Nursing Notes 09/17/2011 [...] Surgery aftercar e Results for this VIEWS SPRING FLOOR SERVICE WORKER procedure are i n the results section. documented in this encounter Results X-ray lt Foot G/E 3 vws* (09/17/2011 9:01 AM SPRING FLOOR SERVICE WORKER) Anatomical Region Laterality Modality Foot, Ankle Left Other Specimen (Source) Anatomical Collection Method Collection Time Re ceived Time Location / / Volume Laterality 09/17/2011 9:01 AM SPRING FLOOR SERVICE WORKER Impressions 09/17/2011 11:23 AM SPRING FLOOR SERVICE WORKER FOOT THREE OR MORE VIEWS LEFT Sep [...]
--- OUTSIDE RECORDS SUMMARY | 2022-06-05 13:50 | XMS_ITS | Encounter Summary ---
:1940 Author Organization [facility] Address [address] [place] [address] Care Team Providers Name Role Phone Unavailable Primary Care Provider Unavailable Reason for Visit Reason Onset Date Comments Surgical Followup 02/08/2011 Encounter Details Date Type Department Care Team Description 02/08/2011 Telephone [facility] Sal Chaparro, Surgical Followup [place] DPM [address] [place] [phone] [facility] 100 [place], [place] [address] (Wo rk) Social History Tobacco [...]
--- OUTSIDE RECORDS SUMMARY | 2022-06-05 13:50 | XMS_ITS | Encounter Summary ---
:1940 Author Organization [place] Address [address] [place] [address] Care Team Providers Name Role Phone Primary Dr, Dipak WELSH Primary Care Provider Unavailable Celina Coley Primary Care Provider [facility] Primary Care Provider [phone] Jon White MD Unavailable [phone] Ramiro Loco MD Unavailable Gallito Gonzalez [...] documented as of this encounter Care Teams Final Assembly Inspector Relationship Specialty Start Date End Date Primary Dr, Dipak, PCP - General 09/21/1204/18 Celina Coley PCP - General Family Practice 05/05/17 05/11/[address] [address] [facility] - [facility] 05/12/[address] [address] Jon White Assigned Surgical Provider 08/10/20 12/08/20 MD [place] [address] [place] [address] Ramiro Loco MD Assigned Heart and 08/10/20 05/11/21 [address] Vascular Provider [place] [address] Gallito Gonzalez, Assigned Heart and 09/29/21 Vascular Provider [address] [place] [address] documented as of this encounter
--- OUTSIDE RECORDS SUMMARY | 2022-06-05 13:50 | XMS_ITS | Encounter Summary ---
:1940 Author Organization [facility] Address [address] [place] [address] Care Team Providers Name Role Phone Primary Dr, Unknown MD Primary Care Provider Unavailable Reason for Visit Reason Onset Date Comments Appointment 10/30/2016 Encounter Details Date Type Department Care Team Description 10/30/2016 Telephone [facility] Jon White, Appointment [facility] MD [address] [place] [phone] [place] [address] (Wo rk) Social History Tobacco [...] before procedure. Pt's daughter will accompany him. CERTIFIED PROJECT MANAGER Telephone Encounter - Lisa Diaz RN - 10/30/2016 2:33 PM CST Left detailed message for pt' daughter explaining patient can have MOHS done next week in order to save himself an extra trip or they can just come in and have consult 1st. CERTIFIED PROJECT MANAGER Telephone Encounter - Aruna Rodriguez - 10/30/2016 8:14 AM CST Patient's daughter would like clarification as to whether Mr. Hendricks is having Mohs surgery rather than consult only - as it's scheduled @ 10:45. Please advise Raquel. CERTIFIED PROJECT MANAGER documented in this encounter Plan of Treatment Not on filedocumented as of this encounter Visit Diagnoses Not on filedocumented in this encounter Care Teams Slab Polisher Relationship Specialty Start Date End Date Primary Dipak Kasper MD PCP - General 09/21/1204/18 documented as of this encounter
--- OUTSIDE RECORDS SUMMARY | 2022-06-05 13:50 | XMS_ITS | Encounter Summary ---
:1940 Author Organization [facility] Address [address] [place] [address] Care Team Providers Name Role Phone Primary Dr, Unknown MD Primary Care Provider Unavailable Reason for Visit Reason Onset Date Comments Call To Schedule Appointment 10/08/2012 Encounter Details Date Type Department Care Team Description 10/08/2012 Telephone [facility] Sal Engel, Call To Schedule [address] [place] [phone] 10[address] [facility] [phone] [facility] 100 [place], [place] [address] (Wo rk) Social History Tobacco Use Types [...] Is scheduled for 10/22/12. Marianne Kim RN ENGINE OPERATOR Telephone Encounter - Sal Chaparro DPM - 10/08/2012 10:28 AM FIRE ENGINE OPERATOR Marianne, Would recommend F/U appt either Dr. Nesbitt or myself in 2-3 wks. ENGINE OPERATOR Telephone Encounter - Brittany Phan - 10/08/2012 10:08 AM CST Pt no showed appt today and you are off next week do you want him to f/u with another provider or see you the following week? ENGINE OPERATOR Telephone Encounter - Nelida Davalos - 10/08/2012 7:53 AM CST Patient was told to schedule an appointment two weeks after operation which would be on ThursdayOctober 22. Dr. Chaparro stated he would like to see patient exactly two weeks after operation and to fit him into the schedule. Please contact patient to schedule appointment. Thank you, Nelida Lopez Central Scheduling ENGINE OPERATOR documented in this encounter Plan of Treatment Not on filedocumented as of this encounter Visit Diagnoses Not on filedocumented in this encounter Care Teams Manager Adult Relationship Specialty Start Date End Date Primary Dipak Kasper MD PCP - General 09/21/1204/18 documented as of this encounter
--- OUTSIDE RECORDS SUMMARY | 2022-06-05 13:50 | XMS_ITS | Encounter Summary ---
:1940 Author Organization [facility] Address [address] [place] [address] Care Team Providers Name Role Phone Unavailable Primary Care Provider Unavailable Reason for Visit Reason Onset Date Comments Patient Inquiry 02/19/2011 [facility] and Creat risi ng Encounter Details Date Type Department Care Team Description 02/19/2011 Telephone [facility] Sal Chaparro Pat iestar Inquiry ([facility] [place] DPM and Creat rising) [address] [place] [address] [phone] Social History Tobacco Use Types Packs/Day Years [...] and call daughter Raquel with plan @ [phone]. Thanks, Aruna Arriaza RN documented in this encounter Plan of Treatment Not on filedocumented as of this encounter Visit Diagnoses Not on filedocumented in this encounter
--- OUTSIDE RECORDS SUMMARY | 2022-06-05 13:50 | XMS_ITS | Encounter Summary ---
:1940 Author Organization [place] Address [address] [place] [address] Care Team Providers Name Role Phone Primary Dr, Unknown Primary Care Provider Unavailable Encounter Details Date Type Department Care Team Description 11/29/2014 - Hospital Encounter [facility] Hang Mcclure phoebe stenosis, lumbar region, without neurogenic claudication; 12/01/2014 [facility] MD Koki AAA (abdominal aortic aneurysm) (H); [place] [facility] Diabetes mellitus (H); [address] [facility] ORTHOPEDICS Hypertension; Drive [address] BPH (benign prostatic hyperp lasia); [place], [place] [address] 31 HLD (hyperlipidemia); [address] [place], [place] Hyperglycemia, drug-induced; [phone] MRSA (methicillin resistant staph aureus ) [...] 90.7 kg (200 lb) 11/29/2014 9:33 AM EDGE INKER HEELS Height 180.3 cm (5' 11) 11/29/2014 9:33 AM EDGE INKER HEELS Body Mass Index 27.89 11/29/2014 9:33 AM EDGE INKER HEELS documented in this encounter Discharge Summaries Dimas [...] the office in about 2 weeks. Call [phone] if patient needs to schedule appointment. Diams Hale PA-C Date: 12/01/2014 Time: 7:49 AM INKER HEELS documented in this encounter Medications at Time [...] tablet (THERA-M) 1 tablet Oral DAILY Daniele Rodegrs PA-C 1 tablet at 12/01/14 0854 ??? [...] CULTURE - Final result (09/22/2012 3:43 PM EDGE INKER HEELS) [facility] Component Value Range SOURCE Nasal [...] was spent in counseling and coordinationof care. Nésotr Fowler MD Date: 12/01/2014 Time: 2:00 PM [facility] Family Medicine INKER HEELS Dimas Hale - 12/01/2014 7:25 AM CST [...] Low Dias - 11/30/2014 2:35 PM CST GRAIN BUYER TREATMENT NOTE Name: Speedy Hendricks : 1940 Acupuncture Treatment Patient Type: Orthopedic Intervention Reason: Urinary Retention Patient complaint:: Unable to void Acupunture (Points):: [place] 3, 4, 6, St 29 Risks and benefits discussed. Low Ramirez L.Ac. Date: 11/30/2014 Time: 2:36 PM INKER HEELS Marcelino Finch MD - 11/30/2014 8:13 AM CST [facility] Medicine Service Progress Note Assessment/Plan: -Lumbar stenosis, [...] Radiology Radiology Results: personally reviewed the impression INKER HEELS Radha Grey - 11/29/2014 5:01 PM CST Acute Pain Management Team Consulting provider: Dr. Mcclure/Dr. Finch POD#:0 Procedure: LEFT L2-3, L3-4 POSTERIOR FUSION AND L3-4 REVISION DECOMPRESSION Home pain regimen: Opioid status: Tolerant [place] 7.5/325 mg-1 tabs q 4 -6 h prn-pt reports taking no more than 6 /day Oxycodone 2.5-5 mg po q 4 h prn_juse recent Rx due to increased nerve pain L leg Arthrotec 75 mg po bid prn Current pain regimen: Will change standard regiment of oxycodone scheduled and oxycodone prn to [place] 7.5/325 and prn oxycodone. Dilaudid IV bumps [...] tolerant , especially whenviewing Rx history of [place] 7.5/325, but he and family report him not taking more than 6 tablets perday of [place] 7.5/325, and have new Rx for oxycodone, but reports only taking 2.5 mg dose at a time. He is very sedated now, and will start out conservatively, not knowing exactly how much [place] he was taking at home. Pt and family reported he is very sensitive to oxycodone, but does well on [place]. Assessment/Plan: [place] 7.3/325 1- tablet every 4 hours Oxycodone -2.5 -5 mg po q 4 h prn BTP Discussed with Dr. Finch Will follow pt Radha Grey RPh 11/29/2014 5:02 PM INKER HEELS Marcelino Finch MD - 11/29/2014 4:45 PM CST [facility] Medicine Service Progress Note Assessment/Plan: -Lumbar stenosis, [...] Radiology Radiology Results: personally reviewed the impression INKER HEELS Saman Bernard - 11/29/2014 10:38 AM CST [facility]) Hopes: Pt hopes to have his leg pain stop after surgery. Needs: Pt needs support of family. Resources: pt has his spouse and several family members in the room with him as resources and support. Additional Notes: pt joked with this casino assistant manager about Gaines's Day and [employer] Yonatan's Day; to thischaplain, having a sense of humor is an additional resource for this patient. Prayer declined, visitonly. Follow up: None planned. Spiritual care upon request. INKER HEELS documented in this encounter H&P Notes Hang Mcclure - 11/29/2014 10:46 AM CST The patient's history has been reviewed and there are no pertinent changes INKER HEELS documented in this encounter Miscellaneous Notes Op [...] was seen in the preop area of [facility] today. Low back was marked and the [...] two 60 mm rods. The system was Lumific TSRH 3DX. We decorticated the facet joints [...] the instrumentation. All instrumentation was tightened to medical scribe's specifications. We then closed the deep fascia [...] used during this case Medtronic TSRH 3DX INKER HEELS documented in this encounter Plan of Treatment Not on filedocumented as of this encounter Procedures Procedure Name Priority Date/Time Associated Diagnosis Comme nts CROSSMATCH RED CELLS Routine 12/02/2014 10:40 Res ults for this AM EDGE INKER HEELS procedure are i n the results section. CROSSMATCH RED CELLS Routine 12/02/2014 10:40 Res ults for this AM ED[facility] IN[facility]ER HEELS procedure are i n the results section. XR LUMBAR SPINE PORT Routine 11/29/2014 1:38 Spinal stenosis, Results for this 2/3 VIEWS PM ED[facility] INKER HEELS lumbar region, procedure are in without neurogenic the resul ts claudication section. XR SURGERY CHRIS FLUORO Routine 11/29/2014 1:37 Spinal stenosis , Results for this GREATER THAN 5 MIN PM EDGE INKER HEELS lumbar region, procedu re are in without neurogenic the resul ts claudication section. RED CELL ANTIGEN Routine 11/29/2014 10:17 Results for this TYPING NON ABO AM ED[facility] IN[facility]ER HEELS procedure are in the results section. ANTIBODY Routine 11/29/2014 10:17 Results for this IDENTIFICATION AM [facility]EL[facility] procedure are in the results section. EKG CARDIAC - HIM SCAN 11/29/2014 documented in this encounter Results Crossmatch red cells (12/02/2014 10:40 AM EDGE INKER HEELS) [facility] Method Time Signature Crossmatch COMPATIBLE 12/02/2014 BLOOD BANK 10:40 AM EDGE INKER HEELS Unit ABO/RH O Pos 12/02/2014 BLOOD BANK 10:40 AM EDGE INKER HEELS Unit Number [id number] 12/02/2014 BLOOD BANK 10:40 AM EDGE INKER HEELS Status Released 12/02/2014 BLOOD BANK 10:40 AM EDGE INKER HEELS Component Red Blood 12/02/2014 BLOOD BANK Cells 10:40 AM EDGE INKER HEELS Product Code [id number] 12/02/2014 BLOOD BANK 10:40 AM EDGE INKER HEELS Specimen (Source) Anatomical Location Collection Method / Collectio n Time Received Time / Laterality Volume Hang Mcclure MD LAB - BLOOD BANK PRODUCT ORD ER Performing Organization Address [facility] Phon e Number [facility] BLOOD BANK [address] [place] [address] BLOOD [address] [place] [address] [place] [address] Crossmatch red cells (12/02/2014 10:40 AM EDGE INKER HEELS) [facility] gist Method Time Signature Crossmatch COMPATIBLE 12/02/2014 BLOOD BANK 10:40 AM EDGE INKER HEELS Unit ABO/RH O Pos 12/02/2014 BLOOD BANK 10:40 AM EDGE INKER HEELS Unit Number [id number] 12/02/2014 BLOOD BANK 10:40 AM EDGE INKER HEELS Status Released 12/02/2014 BLOOD BANK 10:40 AM ED[facility] INKER HEELS Component Red Blood 12/02/2014 BLOOD BANK Cells 10:40 AM ED[facility] IN[facility]ER HEELS Product Code [id number] 12/02/2014 BLOOD BANK 10:40 AM EDGE INKER HEELS Specimen (Source) Anatomical Location Collection Method / Collectio n Time Received Time / Laterality Volume Hang Mcclure MD LAB - BLOOD BANK PRODUCT ORD ER Performing Organization Address [facility] Phon e Number [facility] BLOOD BANK [address] [place] [address] BLOOD B[address] [place] [address] [place] [address] XR Lumbar Spine Port 2/3 Views (11/29/2014 1:38 PM EDGE INKER HEELS) Anatomical Region Laterality Modality Spine Other Specimen (Source) Anatomical Location Collection Method / Collectio n Time Received Time / Laterality Volume Narrative 11/29/2014 1:51 PM ED[facility] INKER HEELS XR LUMBAR SPINE 2 OR 3 VWS [...] Fluoro G/T 5 Min (11/29/2014 1:37 PM EDGE INKER HEELS) Anatomical Region Laterality Modality Abdomen/Pelvis Other Specimen (Source) Anatomical Location Collection Method / Collectio n Time Received Time / Laterality Volume Narrative 11/29/2014 1:37 PM EDGE INKER HEELS Please see the Radiology Report for result for body part of interest. Procedure Note David Girard - 03/23/2021Formatt ing of this note might be different from the original. Please see the Radiology Report for resu lt for body part of interest. Hang Mcclure MD IMG DIAGNOSTIC IMAGING ORDER [place] Antibody identification (11/29/2014 10:17 AM EDGE INKER HEELS) Patholo gist Method Time Signature Antibody > 3hr for 11/29/2014 BLOOD BANK Identification more 1:34 PM EDGE INKER HEELS blood;Ant i-[place] Specimen Anatomical Collection Method / Collection Time Recei fany Time (Source) Location / Volume Laterality Blood specimen Venipuncture / 11/29/2014 10:17 015 1:34 (specimen) Unknown AM EDGE IN[facility]ER HEELS PM [facility]ELS Hang Mcclure MD LAB - BLOOD BANK TEST ORDER Performing Organization Address City/State/ZIP Code Phon e Number [facility] BLOOD BANK [address] [place] [address] BLOOD BANK [address] [place] [address] Red Cell Antigen Typing Non ABO: (11/29/2014 10:17 AM EDGE INKER HEELS) P athologist Signature K Antigen Type Negative 11/29/2014 BLOOD BANK 1:16 PM EDGE INKER HEELS Specimen Anatomical Collection Method / Collection Time Recei fany Time (Source) Location / Volume Laterality Blood specimen Venipuncture / 11/29/2014 10:17 015 1:16 (specimen) Unknown AM EDGE INKER HEELS PM [facility]ELS Narrative [facility] BLOOD BANK - 11/29/2014 1:16 PM EDGE INKER HEELS K Antigen Hang Mcclure MD LAB - BLOOD BANK TEST ORDER Performing Organization Address City/State/ZIP Code Phon e Number [facility] BLOOD BANK [address] [place] [address] BLOOD BANK [address] [place] [address] EKG CARDIAC - HIM SCAN (11/29/2014) Specimen [...] aureus documented in this encounter Care Teams Hospice Volunteer Coordinator Relationship Specialty Start Date End Date Primary Dipak Kasper MD PCP - General 09/21/1204/18 documented as of this encounter
--- OUTSIDE RECORDS SUMMARY | 2022-06-05 13:50 | XMS_ITS | Encounter Summary ---
:1940 Author Organization [facility] Address [address] [place] [address] Care Team Providers Name Role Phone Primary Dr, Unknown Primary Care Provider Unavailable Reason for Visit Reason Onset Date Comments Referral 10/16/2016 [facility] Encounter Details Date Type Department Care Team Description 10/16/2016 Telephone [facility] Jon White Referral ([facility]) [facility] [address] [place] [phone] [place], [place] [phone] (Wo rk) Social History Tobacco Use Types [...] get Valium before procedure and 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 MOHS at 10 45 am. ARCHITECT Telephone Encounter - Aruna Rordiguez - 10/16/2016 3:11 PM CST Pt returned RN (Lisa) phone call. Please call again Thursday10/17/16. ARCHITECT Telephone Encounter - Lisa Diaz RN - 10/16/2016 11:11 AM CST Received fax from central lab pathology from [facility] for pt with BCC on nose. Pt has appt at 10 45 pm on for second opinion on skin cancer and questions. Left message for pt to clarify whether heis planning to come in for MOHS appt or just regular appt. ARCHITECT documented in this encounter Plan of Treatment Not on filedocumented as of this encounter Visit Diagnoses Not on filedocumented in this encounter Care Teams Cookie Padder Relationship Specialty Start Date End Date Primary Dipak Kasper MD PCP - General 09/21/1204/18 documented as of this encounter
--- OUTSIDE RECORDS SUMMARY | 2022-06-05 13:50 | XMS_ITS | Encounter Summary ---
:1940 Author Organization [facility] Address [address] [place] [address] Care Team Providers Name Role Phone Unavailable Primary Care Provider Unavailable Reason for Visit Reason Comments Surgical Followup 02/06 left foot post op. Encounter Details Date Type Department Care Team Description 06/04/2011 Office Visit [facility] Sal Chaparro aftercare (Primary Dx); Clinic Yumiko Castellanos DPM [place] [address] [place] [phone] [place] [address] Social History Tobacco Use Types [...]
--- OUTSIDE RECORDS SUMMARY | 2022-06-05 13:50 | XMS_ITS | Encounter Summary ---
:1940 Author Organization [place] Address [address] [place] [address] Care Team Providers Name Role Phone Primary DrDipak MD Primary Care Provider Unavailable Celina Coley [facility] Care Provider [facility] [place] Primary Care Provider [phone] Jon White MD Unavailable [phone] Ramiro Loco MD Unavailable Encounter Details Date Type Department Care Team Description 11/29/2014 Surgery - [facility] Hang Mcclure, [facility] OR [facility] [address] [place] [address] [address] [place] [phone] [place] [address] [phone] (Wo rk) Social History Tobacco Use Types [...] 90.7 kg (200 lb) 11/29/2014 9:33 AM CLINICAL ATHLETIC INSTRUCTOR Height 180.3 cm (5' 11) 11/29/2014 9:33 AM CLINICAL ATHLETIC INSTRUCTOR Body Mass Index 27.89 11/29/2014 9:33 AM CLINICAL ATHLETIC INSTRUCTOR documented in this encounter Plan of Treatment Not on filedocumented as of this encounter Visit Diagnoses Not on filedocumented in this encounter Additional Health Concerns Infection Onset Date Last Indicated Resolved Time MRSAComment: Positive 02/17/11 and 09/22/12 11/05/2018 019 Negatives 05/03/14 (HE), 12/01/14 (HE) documented as of this encounter Care Teams Gas Tester Relationship Specialty Start Date End Date Primary Dipak Kasper MD PCP - General 09/21/1204/18 Celina Coley PCP - General Family Practice 05/05/17 05/11/[address] [address] [facility] P[facility] - General 05/12/[address] [address] Jon White Assigned Surgical Provider 08/10/20 12/08/20 MD [address] [place] [address] Ramiro Loco MD Assigned Heart and 08/10/20 05/11/21 [address] [place] [address] Vascular Provider [place] [address] documented as of this encounter
--- OUTSIDE RECORDS SUMMARY | 2022-06-05 13:50 | XMS_ITS | Encounter Summary ---
:1940 Author Organization [facility] Address [address] [place] [address] Care Team Providers Name Role Phone Unavailable Primary Care Provider Unavailable Reason for Visit Reason Comments Surgical Followup follow up to left foot surge ry. Encounter Details Date Type Department Care Team Description 07/16/2011 Office Visit [facility] Sal Chaparro Foot p ain (Primary Dx); Clinic Yumiko Castellanos DPM [place] [address] [place] [address] [place] [phone] [place] [address] Social History Tobacco Use Types [...]
--- OUTSIDE RECORDS SUMMARY | 2022-06-05 13:51 | XMS_ITS | Encounter Summary ---
:1940 Author Organization [facility] [place] Address [address] [place] [address] Care Team Providers Name Role Phone Unavailable Primary Care Provider Unavailable Reason for Visit Reason Onset Date Comments Schedule Surgery 01/30/2011 Encounter Details Date Type Department Care Team Description 01/30/[address] [facility] Sal Love, Schedule Surgery [address] [place] [address] [address] [facility] E [phone] [address] [place], [place] [address] (Wo rk) Social History Tobacco Use Types Packs/Day Years Used Date Never Assessed Sex Assigned at Date Recorded Not on file documented as of this encounter Miscellaneous Notes Telephone Encounter - Kandy Cain - 02/04/2011 1:02 PM CDT Packet mailed. Kandy Cain CMA Telephone Encounter - Kandy Cain - 01/31/2011 12:49 PM CDT Added to [place] Telephone Encounter - Kandy Cain - 01/31/2011 10:34 AM CDT Surgery scheduled. Left with details. Date/Time: 02/06/2011 @ 10:50 am Hospital: [facility] Anesthesia: POP Surgeon: Sal Chaparro D.P.M. Preop:Unknown [...] surgery details for pt? February 06 or [phone] or [phone] Thank you, Kandy Cain CMA documented in this encounter Plan of Treatment Not on filedocumented as of this encounter Visit Diagnoses Not on filedocumented in this encounter
--- OUTSIDE RECORDS SUMMARY | 2022-06-05 13:51 | XMS_ITS | Encounter Summary ---
:1940 Author Organization [place] Address [address] [place] [address] Care Team Providers Name Role Phone Unavailable Primary Care Provider Unavailable Encounter Details Date Type Department Care Team Description 02/06/2011 Results [facility] Tiffanie meadows, Sal Castellanos, DPM Hospital Results [address] [place], [place] [address] (Wo rk) Social History Tobacco [...]
--- OUTSIDE RECORDS SUMMARY | 2022-06-05 13:51 | XMS_ITS | Encounter Summary ---
:1940 Author Organization [facility] Address [address] [place] [address] Care Team Providers Name Role Phone Unavailable Primary Care Provider Unavailable Encounter Details Date Type Department Care Team Description 02/06/2011 Operative Report [facility] Daniel Trujillo, (Satellite Specialist) [facility] DPM Results [address] [place], [place] [address] (Wo rk) Social History Tobacco [...] medial and laterally and with a small [place] blade, I was able to carefully dissect [...] DPM MT: [id number] Name: SPEEDY MCDUFFIE Account: [id number] : 1940 Procedure Date: 02/06/2011 Document: [id number] cc: Michelle Hedrick MD documented in this encounter Plan of Treatment Not on filedocumented as of this encounter Visit Diagnoses Not on filedocumented in this encounter
--- OUTSIDE RECORDS SUMMARY | 2022-06-05 13:51 | XMS_ITS | Encounter Summary ---
:1940 Author Organization [place] Address [facility] [place] [address] Care Team Providers Name Role Phone Unavailable Primary Care Provider Unavailable Reason for Visit Reason Comments Musculoskeletal Problem pt states he broke his left great toe and 2nd toe. He is still having trouble/pain in his 2nd toe. Sx since September. Encounter Details Date Type Department Care Team Description 01/29/2011 Office Visit [facility] Sal Chaparro Fractu re, nonunion (Primary Dx); Clinic [place] F, DPM Other hammer toe (acquired); [address] [place] [address] Pain in so ft tissues of limb [facility] [phone] [place], [place] [id number] Social History Tobacco Use Types Packs/Day Years Used Date Never Assessed Sex Assigned at Date Recorded Not on file documented as of this encounter Progress Notes Sal Chaparro - 01/30/2011 4:52 PM CDT Subjective: Pt is seen today as a new pt self referral with [facility]. 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 Pt has been treated in [facility] [...] area. X-rays were reviewed Nov 2010 from [facility] clinic with the pt which [...]
== END 2022-06-05 13:37 | disposition home or self-care (01) ==
LOC: WOUND 13:36
PROVIDERS: PCP Family Medicine; Visit Provider Nurse Practitioner Family
DX: L89.324 Pressure ulcer of left buttock, stage 4 (principal)
CPT/HCPCS: 15271; 97605; Q4151

== ENCOUNTER 2022-06-19 08:45 | Outpatient (CLI) | payer MEDICARE, BC, SELFPAY ==
--- OUTSIDE RECORDS SUMMARY | 2022-06-20 08:49 | XMS_ITS | Clinical Summary ---
:1940 Author Organization [facility] [place] [address] Care Team Providers Name Role Phone Marija Ramirez MD Primary Care Provider [phone] [facility], [place] Unavailable [phone] Allergies Active Allergy Reactions Severity Noted Date Comments Amlodipine 03/05/2009 Foot swelling Procaine Hives 02/17/2006 Penicillins Hives 02/17/2006 Medications Medication Sig Dispensed Refills Start Date End Date Status TYLENOL ARTHRITIS Takes 1 tablet as 0 06/27/2009 Active 650 MG TAB needed. HYDROcodone-acetamin Take 1 Tablet by 24 Tablet 0 04/12/2021 Active ophen (NORCO) 5-325 mouth every 4 hours mg per if needed for Pain. tabletIndications: Max acetaminophen Primary dose: 4000 mg in 24 osteoarthritis of hrs. right hip pramipexole Take 1 Tablet (0.5 90 Tablet 3 09/04/2021 Active (MIRAPEX) 0.5 mg mg) by mouth at tabletIndications: bedtime. Restless legs syndrome (RLS) terazosin (HYTRIN) 5 Take 1 Capsule (5 90 capsule. 3 1 Active mg mg) by mouth at capsuleIndications: bedtime. Essential hypertension metoprolol tartrate Take 1 Tablet (50 180 tablet. 3 09/04/2021 Active (LOPRESSOR) 50 mg mg) by mouth 2 tabletIndications: times daily. Essential hypertension atorvastatin Take 1 Tablet (40 90 tablet. 3 09/04/2021 Active (LIPITOR) 40 mg mg) by mouth once tabletIndications: daily. Hyperlipidemia, unspecified hyperlipidemia type apixaban (Eliquis) Take 1 Tablet (2.5 180 tablet. 3 09/04/2021 Active 2.5 mg mg) by mouth 2 tabletIndications: times daily. Transient cerebral ischemia, unspecified type lisinopriL Take 1 Tablet (10 90 Tablet 3 09/04/2021 Active (PRINIVIL; ZESTRIL) mg) by mouth once 10 mg daily. tabletIndications: Essential hypertension furosemide (LASIX) Take 2 Tablets (40 180 tablet. 3 10/03/2021 Active 20 mg mg) by mouth every tabletIndications: morning. Chronic renal failure, stage 3b (HC) furosemide (LASIX) Take 2 Tablets (40 180 tablet. 3 10/03/2021 Active 20 mg mg) by mouth every tabletIndications: morning. Chronic renal failure, stage 3b (HC) Sennosides 8.6 mg Take 1 Capsule by 0 04/28/2022 Active cap mouth in the morning and 1 Capsule in the evening. amiodarone Administer 200 mg 0 03/12/2022 Active (CORDARONE) 200 mg through feeding tablet tube once daily. ascorbic acid, Take 500 mg by 0 04/28/2022 Active vitamin C, 500 mg mouth 2 times cap daily. ciprofloxacin HCl Take 500 mg by 0 04/28/2022 Active (Cipro) 500 mg mouth once daily. tablet melatonin 3 mg Take 3 mg by mouth 0 04/28/2022 Active tablet at bedtime. Midodrine HCl 10 mg Administer 10 mg 0 03/11/2022 Active tablet through feeding tube in the morning and 10 mg at noon and 10 mg in the evening. 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 .. 11/18/2017 8:31 PM Paroxysmal A-fib 07/28/2017 CKD (chronic kidney disease) stage 3, GFR 30-59 ml/min 05/15/2017 History of lumbar fusion 05/15/2017 Hypoxic brain injury (HC). 04/2017. Hospitalized for th is at [facility] 05/15/2017 Overview: Thought to be secondary to unintentional opiate overdose. MRI showed abnormalities in left hippoca mpus and left medial superior frontal gyrus. Pain medication agreement 11/22/2013 Prediabetes 11/22/2013 Hypertriglyceridemia 11/22/2013 Lumbar spinal stenosis 06/02/2013 ACP (advance care planning) 09/22/2012 Overview: Discussed 09/22/2012 Colon polyp 03/12/2012 Overview: Colonoscopy 02/2012 polyp repeat in 5 yea rs MRSA (methicillin resistant staph aureus) culture posi tive 02/19/2011 Overview: Right Great Toenail bed after excision: cult positive per patient 02/19/2011 AAA (abdominal aortic aneurysm) 11/08/2008 Overview: Followed yearly Comparison abdominal aortic ultrasound i s dated 11/16/07. The infrarenal abdominal aortic aneurysm on the current exam measures 3.5 x 3.4 cm and on prior study measured approximately 3.3 x 3.1 cm. This w ould indicate slight increase in size si nce the previous study. A significant increase in size would be 5 mm over six months or 8 mm over one year. Follow-up is recommended. 11/16/2008 Stable per us 10/2019. Stable per ultrasound 11/27/2011 Cervicalgia 11/17/2007 Other and unspecified hyperlipidemia Overview: Goal: LDL <80 Unspecified essential hypertension Contact dermatitis and other eczema, due to unspecifie d cause Resolved Problems Problem Noted Date Resolved Date Encounter for long-term (current) use of other medications 0 11/22/2013 11/22/2013 Renal insufficiency 06/09/2012 11/22/2013 Issue of repeat prescriptions 02/05/2012 11/22/2013 Dandruff 11/27/2011 11/22/2013 LBP (low back pain) 11/27/2011 11/22/2013 Nocturia 10/03/2009 11/22/2013 Routine general medical examination at [place] [address]/09/2 009 11/22/2013 facility Overview: Discussed colonoscopy - he'll consider Hyperglycemia 11/27/2008 11/22/2013 Encounters Date Type Specialty Care Team Description 06/19/2022 Home Care Visit Jeanette Hunt RN SN - NOT TAKEN UNDER HOME CARE - [facility] E VISIT 06/17/2022 Telephone Marija Ramirez MD 05/30/2022 Orders Only Scanner <No scans attac hed> 04/30/2022 Hospital Encounter Lillian Peterson, RADIOLOGY PRACTITIONER ASSISTANT P soas abscess, left (HC) 04/30/2022 Travel 04/14/2022 Lab Requisition Odilon Carrera MD from Last 3 Months Immunizations Name Administration Dates Next Due AMB INFLUENZA IIV3 (AGE 65+ YRS) PF (Flu Clinic Only) 2017 COVID-19 vaccine ([employer] 30mcg/0.3mL) PF, 1, 11/15/2020 MDV Hepatitis B, Unspecified 07/25/1991, 01/31/1991 Influenza Virus, Unspecified 07/18/2014 Influenza, High-dose Inactivated 12/14/2015, 07/18/2014 Influenza, IIV3 (Age >=3 years) 09/22/2012 Influenza, Inactivated AIIV4 (Age 65+ Years) Preserv 021, 08/10/2020 Free Pneumococcal Poly,23-Valent (Pneumovax) 10/03/2009, 05/01/20 09 Pneumococcal conj 13-Valent (Prevnar 13) 12/02/2016 Td (Age >=7 Years) 07/03/1995 Td, Preservative Free (age >= 7 Years) 06/27/2009 Family History Medical History Relation Name Comments Heart Disease Brother Jitendra Open Heart Surge ry Aortic aneurysm Father Ronald d61 aneurysm of the aorta Cancer-breast Mother Marisol Stroke Mother Marisol d76 stroke Anesthesia Problem No Family History Blood Disease No Family History Relation Name Status Comments Brother Jitendra Alive Father Ronald (Age 61) Mother Marisol Social History Tobacco Use Types Packs/Day Years Used Date Former Smoker Cigarettes 0.25 Quit: 08/28/19 85 Smokeless Tobacco: Never Used Tobacco Cessation: Counseling Given: Yes Alcohol Use Standard Drinks/Week Comments Yes 0 (1 standard drink = 0.6 oz pure alcoho l) 10 beers per week Sex Assigned at Date Recorded Not on file Obstetrics History Last Filed Vital Signs Vital Sign Reading Time Taken Comments Blood Pressure 112/62 04/30/2022 3:30 PM CDT Pulse 70 04/30/2022 3:30 PM CDT Temperature 36.3 ??C (97.3 ??F) 04/30/2022 12:38 PM CDT Respiratory Rate 15 04/30/2022 3:30 PM CDT Oxygen Saturation 96% 04/30/2022 3:30 PM CDT Inhaled Oxygen Concentration - - Weight 72.1 kg (159 lb) 04/30/2022 12:38 PM CDT Height 170.2 cm (5' 7) 04/30/2022 12:38 PM CDT Body Mass Index 24.9 04/30/2022 12:38 PM CDT Plan of Treatment Upcoming Encounters Date Type Specialty Care Team Description 06/24/2022 Office Visit Marija Ramirez MD [address] [place], [place] [address] (Wo rk) Health Maintenance Due Date Last Done Comments Hepatitis C screening for age 1108/28/1958 18-79 Zoster (shingles) series for age [birth year]/28/1959 50+ (1 of 2) Medicare Wellness for age 65+ 2007 Tetanus booster 06/27/2019 06/27/2009, 07/03/1995 Depression screening for age 12+ 03/04/2020 03/04/2019, 07/2017, 12/14/2015 COVID-19 vaccine series (4 - 11/25/2021 07/25/2021, 021, Booster for Pfizer series) 11/15/2020 BMI (ht and wt on same day) for 02/21/2022 02/21/2021, 08/19, age 18+ 08/10/2020, Additional history exists Influenza for age 65+ 06/19/2022 08/16/2021, 08/10/2020, 08/12/2018, Additional history exists Tdap Completed 06/27/2009 (Completed outside of [facility]) Pneumococcal series for age 65+ Completed 12/02/2016, 11/19, 10/03/2009, Additional history exists Goals Goal Patient Goal Associated Recent Patient-Stated? Author Type Problems Progress BLOOD PRESSURE Blood Pressure No Yessenia barrera, - MAINTAINS BP Jami Matute less than 140/90 Medical Devices Implanted Type Area Occupancy Specialist Device Shelf Model / Identifier Expiration Serial / Date Lot Screw Canclls 4.0x15mm [id number] - [id number] Spine [employer] [id number] / Implanted: Qty: 3 on 02/18/2006 at [facility] Implan ts / Plate 42.5mm Zephir - [id number] [employer] [id number] / Implanted: Qty: 1 on 02/18/2006 at [facility] / Procedures Procedure Name Priority Date/Time Associated Comments Diagnosis SCAN-CT INTERPRETATION 05/30/2022 12:00 AM CDT SCAN-DIAGNOSTIC REPORT 05/30/2022 12:00 R esults for this AM CDT procedure are i n the results section. CT DRAIN ABSCESS OR Routine 04/30/2022 2:40 PM Psoas abscess, Results for this HEMATOMA PELVIS OR HIP CDT left (HC) proce dure are in the results section. ANAEROBIC CULTURE Today 04/30/2022 2:21 PM Resu lts for this CDT procedure are i n the results section. BODY FLUID Today 04/30/2022 2:21 PM Results f or this CULTURE,STAIN (AEROBIC) CDT proc edure are in the results section. HEMOGLOBIN STAT 04/30/2022 12:15 Results for this PM CDT procedure are i n the results section. PLATELET COUNT STAT 04/30/2022 12:15 Results f or this PM CDT procedure are i n the results section. PROTIME-INR STAT 04/30/2022 12:15 Results for this PM CDT procedure are i n the results section. from Last 3 Months Results SCAN-DIAGNOSTIC REPORT (05/30/2022 12:00 AM CDT) Narrative 05/30/2022 12:00 AM CDT This result has an attachment that is no t available. Ordered by an unspecified provider. Other Clinical Staff OTHER SCAN-CT INTERPRETATION (05/30/2022 12:00 AM CDT) Narrative This result has an attachment that is no t available. Scanner OTHER CT DRAIN ABSCESS OR HEMATOMA PELVIS OR HIP (04/30/2022 2:40 PM CDT) Anatomical Region Laterality Modality Computed Tomography, Other, Other, Other Specimen (Source) Anatomical Collection Method Collection Time Re ceived Time Location / / Volume Laterality 04/30/2022 3:55 PM CDT Impressions 04/30/2022 3:[address]-guided placement of a 12-Thai Ballard Bah drainage catheter into the left psoas fluid collection. Please note that all CT scans at [facility] use dose modulation, iterative reconstruction, and/or weight-based dosing when appropriate to reduce radiation dose to as low as reasonably achievable. Dictated by Orin Goff MD @ 2021 3:55:47 PM (Electronically Signed) Narrative 04/30/2022 3:55 PM CDT For Patients: ??As a result of the Cures Act, medical imaging exams and procedure report s are released immediately into your [facility] medical record. ??You may view this report before your referring provider. ??If you have questions, please contact your health care provider. INDICATION: Possible left psoas abscess; needs drain age. Technique : CT-guided placement of a drainage cathet er into the left psoas fluid collection. PROCEDURE: The procedure was explained to the patie nt including the possible complications of hemorrhage and an informed consent was obtained. [place] protocol was observed. Time-out was conducted. With the angela ent in the left posterior oblique positi on in the CT gantry, localizing images were obtained through the fluid collection in the left psoas muscle. A suitable area was localized and the area was sterile ly prepped and draped in the usual steri le fashion. 1 percent xylocaine was used for local anesthetic. An 18-gauge 15 cm long trocar needle was advanced into the left psoas fluid collection and over a g uidewire the tract was dilated and a 12- Thai Ballard Bah drainage catheter was placed. At about 12 cc of dark colored fluid was removed on the fluid samples were sent for the requested labs. The ca theter was attached to an external bulb suction. Patient tolerated the procedure well and no immediate complications were encountered. 2 milligrams of Versed and 100 micrograms of fentanyl were given IV during the procedure Procedure Note Orin Goff, MARTÍNEZ - 04/30/2022For matting of this note might be different from the original. For Patients: As a result of the ntury Cures Act, medical imaging exams and procedure reports are released immediately into your electronic medical record. You may view this report before your referring provider. If you have questions, please contact [facility] health care provider. INDICATION: Possible left psoas abscess; needs drain age. Technique : CT-guided placement of a drainage cathet er into the left psoas fluid collection. PROCEDURE: The procedure was explained to the patie nt including the possible complications of hemorrhage and an informed consent was obtained. [place] protocol was observed. Time-out was conducted. With the patient in the left posterior oblique position i n the CT gantry, localizing images were obtained through the fluid collection in the left psoas muscle. A suitable area was localized and the area was sterilely prepped and draped in the usual sterile fashion. 1 percent xylocaine was used for local anesthetic. An 18-gauge 15 cm long trocar needle was advanced into the left psoas fluid collection and over a guidewire the tract was dilated and a 12-Thai Ballard Bah drainage cath eter was placed. At about 12 cc of dark colored fluid was removed on the fluid samples were sent for the requested labs. The catheter was attached to an external bulb suction. Patient tolerated the procedure well and no immediate complications were encountered. 2 milligrams of Versed and 100 micrograms of fentanyl were given IV during the procedure IMPRESSION: Uncomplicated CT-guided placement of a 1 2-Thai Ballard Bah drainage catheter into the left psoas fluid collection. Please note that all CT scans at this [facility] use dose modulation, iterative reconstruction, and/or weight-based dosing when appropriate to reduce radiation dose to as low as reasonably achievable. Dictated by Orin Goff MD @ 2021 3:55:47 PM (Electronically Signed) Lillian Peterson NP CT BODY FLUID CULTURE,STAIN (AEROBIC) (04/30/2022 2:21 PM CDT) [facility] Method Time Signature CULTURE No Growth. [facility]AL LABORATORY GRAM STAIN No PMNs 05/03/2022 [facility] 9:06 AM CDT LABORATORY-LANI TRAL LABORATORY GRAM STAIN No organisms 05/03/2022 [facility] seen 9:06 AM CDT LABORATORY-[facility] TRAL LABORATORY Specimen Anatomical Collection Method Collection Time Receive d Time (Source) Location / / Volume Laterality Body Fluid BODY FLUID SAMPLE Non-Blood / 04/30/2022 2:21 PM 04/18 2:45 / Unknown Unknown CDT PM CDT Lillian Peterson RADIOLOGY PRACTITIONER ASSISTANT MICROBIOLOGY Performing Organization Address City/[facility]/ZIP Code Phon e Number [facility] [address] [place] [address] LABORATORY-CENTRAL 2000 LABORATORY ANAEROBIC CULTURE (04/30/2022 2:21 PM CDT) [facility] Method Time Signature CULTURE No anaerobes 05/05/2022 [facility] isolated 11:02 AM CDT LABORATORY-LANI TRAL LABORATORY Specimen Anatomical Collection Method Collection Time Receive d Time (Source) Location / / Volume Laterality Other (Other) Non-Blood / 04/30/2022 2:21 PM 04/30/20 2:45 Unknown CDT PM CDT Lillian Peterson RADIOLOGY PRACTITIONER ASSISTANT MICROBIOLOGY Performing Organization Address City/[facility] Code Phon e Number [facility] [address] [place] [address] LABORATORY-CENTRAL 1999 LABORATORY (ABNORMAL) Platelet Count (04/30/2022 12:15 PM CDT) Analysis Performed At [facility] logist Time Signature PLATELET COUNT 208 140 - 440 04/30/2022 [facility] thou/cu mm 12:31 PM CDT LABORATORY-LANI TRAL LABORATORY MPV 11.1 (H) 6.5 - 11.0 04/30/2022 [facility] [employer] fL 12:31 PM CDT LABORATORY-LANI TRAL LABORATORY Specimen Anatomical Collection Method / Collection Time Recei fany Time (Source) Location / Volume Laterality Blood BLOOD SPECIMEN / Venipuncture / 04/30/2022 12:15 04/30 Unknown Unknown PM CDT 12:25 PM CDT Orin Goff MBBS HEMATOLOGY Performing Organization Address City/[facility]/ZIP Code Phon e Number [facility] [address] [place] [address] LABORATORY-CENTRAL 1999 LABORATORY (ABNORMAL) Hemoglobin (04/30/2022 12:15 PM CDT) athologist Signature HEMOGLOBIN 10.8 (L) 13.5 - 04/30/2022 [facility] 17.5 g/dL 12:31 PM CDT LAB[facility]ATORY-[facility] LABORATORY MCV 94 80 - 100 04/30/2022 [facility] fL 12:31 PM CDT LABORATORY-[facility] LABORATORY Specimen Anatomical Collection Method / Collection Time Recei fany Time (Source) Location / Volume Laterality Blood BLOOD SPECIMEN / Venipuncture / 04/30/2022 12:15 04/30 Unknown Unknown PM CDT 12:25 PM CDT [facility] HEMATOLOGY Performing Organization Address City/State/ZIP Code Phon e Number [facility] [address] [place] [address] LABORATORY-CENTRAL 2000 LABORATORY Protime-INR (04/30/2022 12:15 PM CDT) athologist Signature INR 1.0 <1.3 04/30/2022 [facility] 12:38 PM CDT LABORATORY-CENTR AL LABORATORY PROTIME 13.0 11.8 - 13.9 04/30/2022 [facility] sec 12:38 PM CDT LABORATORY-CENTR AL LABORATORY Specimen Anatomical Collection Method / Collection Time Recei fany Time (Source) Location / Volume Laterality Blood BLOOD SPECIMEN / Venipuncture / 04/30/2022 12:15 04/30 Unknown Unknown PM CDT 12:25 PM CDT Narrative [facility] LABORATORY-CENTRAL LABORAT ORY - 04/30/2022 12:38 PM CDT ?Therapeutic Range 2.0-3.0 for most anticoagulated patients 2.5-3.5 or 4.0 for high risk patients The INR is only used for patients on sta ble oral anticoagulant therapy. It makes no significant contribution to the diagnosis or treatment of patients whose Protime is prolonged f or other reasons. INR results are increased when heparin l evels exceed 1.0 U/mL, which corresponds to an aPTT >125 seconds if the patient is on UFH. [facility] HEMATOLOGY Performing Organization Address City/State/ZIP Code Phon e Number [facility] [address] [place] [address] LABORATORY-CENTRAL 2000 LABORATORY from Last 3 Months Insurance Payer Benefit Plan / Subscriber ID Effective Dates Phone Addre ss Type Group MEDICARE PART MEDICARE PART [id number] [place] B - [place] USE B HB ONLY [place] [address] [place] [address] MEDICARE PART MEDICARE PART [id number] 2007[place]: [place] A - [place] USE A HB ONLY nt [address] [place] [address] MEDICARE PPS HC MEDICARE [id number] 2007-Prese PO GERI X 2019 PPS nt [address] [place] [address] BLUE CROSS MR BLUE CROSS [id number] 2016-Presen [address] [address] [place] [id number] BLUE [place]OSS BLUE CROSS [id number] 2016-[place] [address] [address] [address] [place] [place], [place] ONLY [id number] Speedy Hendricks Personal/Family Self 1940 [address] (Home) [place] [phone] [place], [place] (Work) [address] Advance Directives Latest Code Status on File Code Status Date Activated Date Inactivated Comments Full Code 04/30/2022 12:01 PM 05/01/2022 2:22 AM Code Status Discussion: Reviewed Preferences Full Code 02/18/2006 7:54 PM 02/20/2006 1:40 PM Full Code 02/18/2006 4:12 PM 02/18/2006 7:54 PM Full Code 02/18/2006 9:49 AM 02/18/2006 4:12 PM Care Teams Stars Specialist Relationship Specialty Start Date End Date Marija Ramirez MD PCP - General Family Practice 05/13/[address] [place] [address] [facility] [address]
--- OUTSIDE RECORDS SUMMARY | 2022-06-20 08:49 | XMS_ITS ---
:[address] [facility], [place] DOCUMENT DISCLAIMER The information in the 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 F June 18, 2022 11:4 6 AM Weight Vital Sign Value Date / Time Estimated Dry Weight 71.5 kg April 21, 2022 11:59 PM Pre-Dialysis 73.80 kg June 18, 2022 11:4 6 AM Post-Dialysis 72.60 kg June 18, 2022 11:4 6 AM Other Other Value Date / Time Height 161 cm May 26, 2022 12:0 0 AM [facility] LAB RESULTS Hematology Result Type Result Value Relevant Reference Interpretation Date Range Platelets 244 1000/mcL 475-375 1601/mcL - May 21, 2022 YARIEL 2.3 % 0.0-4.0% - May 21, 2022 Basophils 0.4 % 0.0-1.5% - May 21, 2022 Eosinophil 2.6 % 0.0-7.0% - May 21, 2022 TIBC 237 mcg/dL 185-515 mcg/dL - May 21 UIBC (Calc) 155 mcg/dL 155-355 mcg/dL - May 21 Iron 82 mcg/dL Females: 30-160 - May 21 mcg/dL Males: 45-160 mcg/dL RBC 3.53 mill/mcL [...] 12.0 - 16.0 g/dL Hemoglobin x 3 31.8 % Male: 14.0 - 18.0 Low May 202021 g/dL; Female: 12.0-16.0 g/dL HGB 10.6 g/dL Males: 14.0 - 18.0 Low May g/dL Females: 12.0 - 16.0 g/dL Metabolic/Renal Result Type Result Value Relevant Reference Interpretation Date Range BUN 54 mg/dL 6-19 mg/dl High May [...] BUN/Creat Ratio 24.1 - High May 23 BUN 58 mg/dL 6-19 [...] May BUN/Creat Ratio 17.2 08-07 - June 04, 2 022 BUN 37 mg/dL 6-19 mg/dl High June 04, 2022 Chloride 103 mEq/L 96-108 mEq/L - June 04, 2022 Bicarbonate 30 mEq/L 22-29 mEq/L - June 04, 2022 Sodium 141 mEq/L 136-145 mEq/L - June 04 2 Potassium 3.7 mEq/L 3.5-5.1 mEq/L - June 04 2 Chloride 105 mEq/L 96-108 mEq/L - June 11, 2022 Potassium 4.6 mEq/L 3.5-5.1 mEq/L - June 11 2 Bicarbonate 28 mEq/L 22-29 mEq/L - June 11, 2022 Creatinine, Serum 2.44 mg/dL 0.6-1.3 mg/dL High May BUN 29 mg/dL 6-19 mg/dl High June 11, 2022 Sodium 142 mEq/L 136-145 mEq/L - June 11 2 BUN/Creat Ratio 11.9 08-07 - June 11, 022 Creatinine, Serum 2.31 mg/dL 0.6-1.3 mg/dL High May Creatinine Clearance, 10.2 mL/min Creatinine Low June 13, 2022 Urine Clearance, Normalized Male 94.0-122.0 mL/min Female 77.0-94.0 mL/min Urea Nitrogen, Urine, 177 mg/dL 12-20 g/24 hrs - 2021 Timed BUN 34 mg/dL 6-19 mg/dl High June 18, 2022 Creatinine, Serum 2.67 mg/dL 0.6-1.3 mg/dL High May BUN/Creat Ratio 12.7 08-07 - June 18, 2 022 Sodium 140 mEq/L 136-145 mEq/L - June 18 2 Potassium 4.7 mEq/L 3.5-5.1 mEq/L - June 18 2 Chloride 103 mEq/L 96-108 mEq/L - June 18, 2022 Bicarbonate 23 mEq/L 22-29 mEq/L - June 18, 2022 HD Adequacy Result Type Result Value Relevant Reference Interpretation Date Range spKt/V (Daugirdas 1.66 No Reference range Normal 2021 II) provided eKt/V (Tattersall) 1.39 No Reference range Normal May 2021 provided Bone/Mineral Result Type Result Value Relevant Reference Interpretation Date Range Phosphorus 3.7 mg/dL 2.6-4.5 mg/dL - May 21 2 Calcium, Total 9.1 mg/dL 8.4-10.2 mg/dL - May 21, 2022 Ca x P Product 34 < 55 - May 21 22 Magnesium 1.6 mg/dL 1.6-2.6 mg/dL - May 21 2 Corrected Ca x P 34 < 55 - May 21, 2022 Product Liver/Nutrition Result Type Result Value Relevant Reference Interpretation Date Range Total Protein 6.6 g/dL 6.0-8.5 g/dL - [...] range Low May 23, 2022 Urine provided Total Urea 1.4 g/24 hr No Reference range Low May Nitrogen, Urine provided Creatinine, Urine 43.6 mg/dL No Reference range - [facility]2021 provided Total Creatinine, 0.3 g/24 hr No Reference range Low 2021 Urine provided Infectious Diseases Result Type Result [...] Jugular IMMUNIZATIONS Vaccine Date Dose Route Status [id number], series June 18, 2022 40.0 mcg Intramuscul ar Completed 3 of 4 HEPLISAV-B April 25, 2022 20.0 mcg Intramuscular Completed TRANSPLANT WAITLIST STATUS No Information on Transplant Waitlist Status DIALYSIS TREATMENTS Conventional Hemodialysis Date Pre-Treatment Post-Treatment Duration BFR Dialysate Dialyzer Dialysis Meds Vitals Vitals (hr) (mL/min) Access Admin May Weight 73.20 Weight 72.90 03:03:00 350 2.0 K, 180nre Hemodial ysis-CV Catheter-Tunneled, Chest, Right Jugular Heparin Sodium (Porcine) 1,000 Units/mL Catheter Lock Arterial; 1600units,Arterial Red Port 26, kg kg 2.5 Ca, Optiflux Heparin S odium (Porcine) 1,000 Units/mL Catheter Lock Venous; 1600units,Venous Blue Port 2021 1.0 Mg, 100 Dextrose (N2251) Blood Pressure-sitting 157/75 mmHg Blood Pressure-sitting 12 6/74 mmHg Heart Rate 69 beats per minute Heart Rate 76 beats per minute Respiratory Rate 16 breaths per Respiratory Rate 16 breaths per minute minute Temperature 97.8 deg. F Temperature 97.8 deg. F May Weight 73.00 Weight 72.80 03:00:00 350 2.0 K, 180nre Hemodial ysis-CV Catheter-Tunneled, Chest, Right Jugular Heparin Sodium (Porcine) 1,000 Units/mL Catheter Lock Arterial; 1600units,Arterial Red Port 29, kg kg 2.5 Ca, Optiflux Heparin S odium (Porcine) 1,000 Units/mL Catheter Lock Venous; 1600units,Venous Blue Port 2021 1.0 Mg, Iron Sucrose (Venofer); 50mg,Intravenous - push 100 Dextrose (N2251) Blood Pressure-sitting 169/72 mmHg Blood Pressure-sitting 12 7/70 mmHg Blood Pressure-standing 181/96 mmHg Blood Pressure-standing 131/79 mmHg Heart Rate 89 beats per Heart Rate 80 beats per minute minute Respiratory Rate 16 breaths per Respiratory Rate 16 breaths per minute minute Temperature 97.8 deg. F Temperature 98.0 deg. F May Weight 73.80 Weight 72.60 03:00:00 360 2.0 K, 180nre Hemodial ysis-CV Catheter-Tunneled, Chest, Right Jugular Heparin Sodium (Porcine) 1,000 Units/mL Catheter Lock Arterial; 1600units,Arterial Red Port 31, kg kg 2.5 Ca, Optiflux Heparin S odium (Porcine) 1,000 Units/mL Catheter Lock Venous; 1600units,Venous Blue Port 2021 1.0 Mg, 100 Dextrose (N2251) Blood Pressure-sitting 154/63 mmHg Blood Pressure-sitting 12 5/68 mmHg Blood Pressure-standing 164/91 mmHg Blood Pressure-standing 124/70 mmHg Heart Rate 86 beats per Heart Rate 78 beats per minute minute Respiratory Rate 16 breaths per Respiratory Rate 16 breaths per minute minute Temperature 99.4 deg. F Temperature 98.0 deg. F
--- OUTSIDE RECORDS SUMMARY | 2022-06-20 08:50 | XMS_ITS | Encounter Summary ---
:1940 Author Organization [facility] Address [address] [place] [address] Care Team Providers Name Role Phone Unavailable Primary Care Provider Unavailable Encounter Details Date Type Department Care Team Description 06/04/2022 Orders Only [facility] O f Denilson Quinones MD [phone] [place] [address] [place], [place] [phone] (Wo rk) Social History Tobacco Use [...] 06/05/2022 Unless otherwise specified, test(s) performed at: [facility], [address] [place] [address], [place] [address] SERGER: Raheem Malik M.D., Ph.D For any questions, please call customer service at FREQUENCY:OTHER Resulting Agency Comment Specimen source: Serum Denilson Holly MD LAB BLOOD ORDERABLES Performing Organization Address City/[facility] Phon e Number APS SPECTRA [facility] (ABNORMAL) [...] 06/05/2022 Unless otherwise specified, test(s) performed at: [facility], [address] [place] [address], [place] [address] SERGER: Raheem Malik M.D., Ph.D For any questions, please call customer service at FREQUENCY:OTHER Resulting Agency Comment Specimen source: Blood Deinlson Holly MD LAB BLOOD ORDERABLES Performing Organization Address City/[facility] Phon e Number APS SPECTRA [facility] documented in this encounter Visit Diagnoses Not on filedocumented in this encounter
--- OUTSIDE RECORDS SUMMARY | 2022-06-20 08:50 | XMS_ITS | Encounter Summary ---
:1940 Author Organization [facility] Address [address] [place] [address] Care Team Providers Name Role Phone Unavailable Primary Care Provider Unavailable Encounter Details Date Type Department Care Team Description 06/11/2022 Treatment [facility] f Denilson Quinones MD [address] [place] [place], [place] [phone] (Wo rk) Social History Tobacco Use Types Packs/Day Years Used Date Smoking Tobacco: Never Assessed Sex Assigned at Date Recorded Not on file documented as of this encounter Miscellaneous Notes Dialysis Note - Denilson Holly MD - 06/11/2022 3:02 PM CDT Date: Jun 11, 2022 Patient Name: Speedy Hendricks : 1940 Chart #: [id number] Sex: M BATTERY BUILDER: Denilson Holly MD LOCATION: [place] [phone] SCHEDULE: M-W-F 2nd Shift Chief Complaint: Acute kidney injury. The patient complains of the following - 06/11: Still at [facility]. NO symptoms with dialysis. Cr essentially unchanged. He says he will do 24hr urine next week, staff at SNF to help collect. HE is still thinking about access, doesn't want to schedule yet. 05/28/22: He is doing ok. Residual function is low, CrCl was <5 and UreaCl <1 but possible under collection as urine from night time may have [...] requiring HD. Transferred from [place] rehab to [facility] here, hoping to get home. [facility] here today, dry weight much lower than what they had listed it appears. Med list reviewed from [facility], on midodrine for hypotension with HD. [...] removed). Went to rehab, transferred back to [place] to [facility] for ongoing rehab closer to home. [facility] [place]. His daughter Raquel is ICU/CASINO FLOORPERSON ([employer] currently) and is very involved. Problem List No problem list is available. History not documented History not documented Review of Systems: No shortness of breath. No fever. No edema. No nausea. No report of cramps. Pt still producing urine. UOP has increased per his report Exam: HEENT - PERRLA. No oral lesions. Lungs - Good respiratory effort. Clear. Heart - S1. S2. irregular heart rate Abdomen - Soft and non distended. [...] LInks Adequacy & Blood Pressure: spKt/V Gotch 1.78 (05/21/22) 1.8 (04/23/22) eKdrt/V 1.45 (05/21/22) 1.47 (04/23/22) spKt/V (Daugirdas II) 1.6600 (05/21/22) 1.6300 (04/23/22) 1.3700 (04/16/22) BUN mg/dL 37 (06/04/22) 54 (05/28/22) 58 (05/23/22) 54 (05/21/22) 54 (05/19/22) UREA NITROGEN (MG/DL) IN SER/PLAS - POST [...] results Anemia: HEMOGLOBIN (G/DL) IN BLOOD g/dL 10.1 (06/04/22) 9.9 (05/28/22) 10.4 (05/21/22) 10.2 (05/14/22) 10.5 (05/07/22) PLATELETS 1000/mcL 244 (05/21/22) 203 (04/23/22) 229 (04/16/22) IRON SATURATION % 31 (04/16/22) FERRITIN ng/mL 704 (04/23/22) 989 (04/16/22) Hemoglobin within target. Transferrin saturation within target. Supplemental iron not needed at this time. Labs today, will start iron/mircera protocol Nutrition: ALBUMIN (G/DL) g/dL 3.7 (05/21/22) 3.2 (04/23/22) 2.7 (04/16/22) Sodium mEq/L 141 (06/04/22) 139 (05/28/22) 142 (05/21/22) 138 (05/19/22) 138 (05/14/22) POTASSIUM (MMOL/L) IN SER/PLAS mEq/L 3.7 (06/04/22) 4.4 (05/28/22) 4.4 (05/21/22) 4.2 (05/19/22) 4.0 (05/14/22) BICARBONATE (CO2) mEq/L 30 (06/04/22) 26 (05/28/22) 29 (05/21/22) 26 (05/19/22) 28 (05/14/22) Albumin not adequate. Potassium controlled. Albumin improving, [...] and he is considering. WIll send to [facility] as soon as he accepts Will keep DEJA for now, but likely ESRD next month if no recovery and if confirm with 24hr urine thatCrCl and UreaCl are still <10 Denilson Holly MD [ Signed And locked electronically On 06/11/2022 at 03:04:30 PM ] Transcribed: Denilson Holly ( 06/11/2022 ) documented in this encounter Plan of Treatment Not on filedocumented as of this encounter Visit Diagnoses Not on filedocumented in this encounter
--- OUTSIDE RECORDS SUMMARY | 2022-06-20 08:50 | XMS_ITS | Encounter Summary ---
:1940 Author Organization [facility] Address [address] [place] [address] Care Team Providers Name Role Phone Unavailable Primary Care Provider Unavailable Encounter Details Date Type Department Care Team Description 05/02/2022 Orders Only [facility] O f Denilson Quinones MD [phone] [place] [address] [place], [place] [phone] (Wo rk) Social History Tobacco Use [...] 05/03/2022 Unless otherwise specified, test(s) performed at: [facility], [address] [place] [address] [facility] [place] [address] SUPERVISOR GEAR REPAIR: Raheem Malik M.D., Ph.D For any questions, [...] MD LAB BLOOD ORDERABLES Performing Organization Address City/[facility]/ZIP Code Phon e Number APS SPECTRA [facility] GFR (05/02/2022) P athologist Signature eGFR CKD-EPI CR 26 mL/min APS SPECTRA 2020 [facility] Comment: [facility] has implemented the recommended eGFR calculation that [...] 05/03/2022 Unless otherwise specified, test(s) performed at: [facility], [address] [place] [address] [facility] [place] [address] SUPERVISOR GEAR REPAIR: Raheem Malik M.D., Ph.D For any questions, please call customer service at FREQUENCY:OTHER Resulting Agency Comment Specimen source: Serum Denilson Holly MD LAB [id number] NSOLICITED RESULTS Performing Organization Address City/State/ZIP Code Phon e Number APS SPECTRA [facility] documented in this encounter Visit Diagnoses Not on filedocumented in this encounter
--- OUTSIDE RECORDS SUMMARY | 2022-06-20 08:50 | XMS_ITS | Encounter Summary ---
:1940 Author Organization [facility] Address [address] [place] [address] Care Team Providers Name Role Phone Unavailable Primary Care Provider Unavailable Encounter Details Date Type Department Care Team Description 06/13/2022 Orders Only [facility] O f Denilson Quinones MD [phone] [place] [address] [place], [place] [phone] (Wo rk) Social History Tobacco Use Types Packs/Day Years Used Date Smoking Tobacco: Never Assessed Sex Assigned at Date Recorded Not on file documented as of this encounter Plan of Treatment Not on filedocumented as of this encounter Procedures Procedure Name Priority Date/Time Associated Diagnosis Comme nts URINE CLEARANCE Routine 06/13/2022 Results for this procedure are i n the results section . PATIENT INFORMATION Routine 06/13/2022 Results for this procedure are i n the results section . PATIENT INFORMATION Routine 06/13/2022 Results for this procedure are i n the results section . CHEMISTRY Routine 06/13/2022 Results for thi s procedure are i n the results section . documented in this encounter Results (ABNORMAL) URINE CLEARANCE (06/13/2022) [facility] Signature Urea Nitrogen, 177 mg/dL APS SPECTRA Urine Timed [facility] Urea Nitrogen, 1.4 (L) 12.0 - APS SPECTRA Urine 24 Hr 20.0 g/24 [facility] hr Creatinine, 43.6 mg/dL APS SPECTRA Urine Timed [facility] Creatinine, 24H 0.3 (L) 0.7 - 1.8 APS SPECTRA Ur g/24 hr [facility] Creatinine 10.5 mL/min APS SPECTRA Clear, Urine [facility] Creat Clear, 10.2 (L) 94.0 - APS SPECTRA Urine Norm 122.0 [facility] mL/min Specimen (Source) Anatomical Collection Method Collection Time Re ceived Time Location / / Volume Laterality 06/13/2022 06/14/2022 2:48 AM CDT Narrative APS SPECTRA [facility] - 06/14/2022 Unless otherwise specified, test(s) performed at: [facility], [address] [place] [address], [place] [address] DATA COLLECTOR: Raheem Malik M.D., Ph.D For any questions, please call customer service at FREQUENCY:OTHER Resulting Agency Comment Specimen source: Urine Denilson Holly MD LAB URINE ORDERABLES Performing Organization Address City/[facility] Phon e Number APS SPECTRA [facility] (ABNORMAL) Spectrae Chemistry (06/13/2022) athologist Signature Creatinine 2.31 (H) 0.60 - 1.30 APS SPECTRA mg/dL [facility] Comment: Custom Exception Specimen (Source) Anatomical Collection Method Collection Time Re ceived Time Location / / Volume Laterality 06/13/2022 06/14/2022 2:50 AM CDT Resulting Agency Comment Specimen source: Serum Denilson Holly MD LAB BLOOD ORDERABLES Performing Organization Address [facility] Phon e Number APS SPECTRA [facility] PATIENT INFORMATION (06/13/2022) athologist Signature Patient BSA 1.77 sq. M. APS SPECTRA [facility] Comment: Normalized values are calculated using t he patient's actual BSA and normalized to the average BSA of 1.73m2. Specimen (Source) Anatomical Collection Method Collection Time Re ceived Time Location / / Volume Laterality 06/13/2022 06/14/2022 2:50 AM CDT Narrative APS SPECTRA [facility] - 06/14/2022 Unless otherwise specified, test(s) performed at: [facility], [address] [place] [address], [place] [address] DATA COLLECTOR: Raheem Malik M.D., Ph.D For any questions, please call customer service at FREQUENCY:OTHER Resulting Agency Comment Specimen source: PD Fluid Denilson Holly MD LAB BLOOD ORDERABLES Performing Organization Address [facility] Phon e Number APS SPECTRA [facility] PATIENT INFORMATION (06/13/2022) P athologist Signature Patient Weight 73.2 APS SPECTRA [facility] Patient Height 161.0 APS SPECTRA [facility] Amputee Status NO APS SPECTRA [facility] Amputee Parts NONE APS SPECTRA [facility] Urine Volume 800 APS SPECTRA [facility] Collection 24.0 APS SPECTRA Interval, Ur [facility] Specimen (Source) Anatomical Location Collection Method / Collectio n Time Received Time / Laterality Volume 06/13/2022 06/13/2022 Narrative APS SPECTRA [facility] - 06/14/2022 Unless otherwise specified, test(s) performed at: [facility], [address] [place], [place] [address]ann [place] [address] DATA COLLECTOR: Raheem Malik M.D., Ph.D For any questions, please call customer service at FREQUENCY:OTHER Resulting Agency Comment Specimen source: PD Fluid Denilson Holly MD LAB BLOOD ORDERABLES Performing Organization Address [facility] Phon e Number APS SPECTRA K[facility] documented in this encounter Visit Diagnoses Not on filedocumented in this encounter
--- OUTSIDE RECORDS SUMMARY | 2022-06-20 08:50 | XMS_ITS | Encounter Summary ---
:1940 Author Organization [facility] Address [address] [place] [address] Care Team Providers Name Role Phone Unavailable Primary Care Provider Unavailable Encounter Details Date Type Department Care Team Description 05/23/2022 Orders Only [facility] O f Denilson Quinones MD [phone] [place] [address] [place], [place] [phone] (Wo rk) Social History Tobacco Use [...] 05/26/2022 Unless otherwise specified, test(s) performed at: [facility], [address] [place] [address], [place] [address] PANTOGRAPHER: Raheem Malik M.D., Ph.D For any questions, please call customer service at FREQUENCY:OTHER Resulting Agency Comment Specimen source: Urine Denilson Holly MD LAB URINE ORDERABLES Performing Organization Address [facility] Phon e Number APS SPECTRA K[facility] PATIENT INFORMATION (05/23/2022) athologist [facility] Patient BSA 1.75 sq. M. APS SPECTRA [facility] Comment: Normalized values are calculated using t he patient's actual BSA and normalized to the average BSA of 1.73m2. Specimen (Source) Anatomical Collection Method Collection Time Re ceived Time Location / / Volume Laterality 05/23/2022 05/26/2022 12:2 5 PM CDT Narrative APS SPECTRA [facility] - 05/26/2022 Unless otherwise specified, test(s) performed at: [facility], [address] [place] [address], [place] [address] PANTOGRAPHER: Raheem Malik M.D., Ph.D For any questions, please call customer service at FREQUENCY:OTHER Resulting Agency Comment Specimen source: PD Fluid Denilson Holly MD LAB BLOOD ORDERABLES Performing Organization Address City/[facility] Phon e Number APS SPECTRA [facility] (ABNORMAL) [...] 27 mL/min APS SPECTRA 2020 [facility] Comment: [facility] has implemented the recommended eGFR calculation [...] 05/26/2022 Unless otherwise specified, test(s) performed at: [facility], [address] [place] [address], [place] [address] PANTOGRAPHER: Raheem Malik M.D., Ph.D For any questions, please call customer service at FREQUENCY:OTHER Resulting Agency Comment Specimen source: Serum Denilson Holly MD LAB [id number] NSOLICITED RESULTS Performing Organization Address City/State/ZIP Code [...] 05/26/2022 Unless otherwise specified, test(s) performed at: [facility], [address] [place] [address], [place] [address] PANTOGRAPHER: Raheem Malik M.D., Ph.D For any questions, please call customer service at FREQUENCY:OTHER Resulting Agency Comment Specimen source: PD Fluid Denilson Holly MD LAB BLOOD ORDERABLES Performing Organization Address City/State/ZIP Code Phon e Number APS SPECTRA [facility] documented in this encounter Visit Diagnoses Not on filedocumented in this encounter
--- OUTSIDE RECORDS SUMMARY | 2022-06-20 08:50 | XMS_ITS | Encounter Summary ---
:1940 Author Organization [facility] Address [address] [place] [address] Care Team Providers Name Role Phone Unavailable Primary Care Provider Unavailable Encounter Details Date Type Department Care Team Description 05/28/2022 Orders Only [facility] O f Denilson Quinones MD [phone] [place] [address] [place], [place] [phone] (Wo rk) Social History Tobacco Use [...] ORDERABLES Performing Organization Address City/[facility] Code Phon e Number APS SPECTRA [facility] GFR (05/28/2022) P athologist Signature eGFR CKD-EPI CR 30 mL/min APS SPECTRA 2020 [facility] Comment: [facility] has implemented the recommended eGFR calculation that [...] 05/29/2022 Unless otherwise specified, test(s) performed at: [facility], [address] [place] [address], [place] [address] DIVINE HEALER: Raheem Malik M.D., Ph.D For any questions, please call customer service at FREQUENCY:OTHER Resulting Agency Comment Specimen source: Serum Denilson Holly MD LAB [id number] NSOLICITED RESULTS Performing Organization Address City/[facility] Code Phon e Number APS [...] 05/29/2022 Unless otherwise specified, test(s) performed at: [facility], [address] [place] [address], [place] [address] DIVINE HEALER: Raheem Malik M.D., Ph.D For any questions, please call customer service at FREQUENCY:OTHER Resulting Agency Comment Specimen source: Blood Denilson Holly MD LAB BLOOD ORDERABLES Performing Organization Address City/State/ZIP Code Phon e Number APS SPECTRA [facility] documented in this encounter Visit Diagnoses Not on filedocumented in this encounter
--- OUTSIDE RECORDS SUMMARY | 2022-06-20 08:50 | XMS_ITS | Encounter Summary ---
:1940 Author Organization [place] Address [address] [facility] 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 Loco *jj Pt is sti ll having back pain *LMB 08/19/21 - R/S from 08/29/21 *B 08/28/21 Encounter Details Date Type Department Care Team Description 09/23/2021 Office Visit [facility] Gallito Gonzalez [place] bdominal aortic [facility] MD Eliel aneurysm (TAAA) without [place] [address] rupture (H) (Primary Dx) [address] [place] [address] [place] [address] Social History Tobacco Use [...] with No / Unsure 09/23/2021 10:26 AM SKINNING MACHINE FEEDER someone who was confirmed or suspected to have Coronavirus / COVID-19? documented as of this encounter Last Filed Vital Signs Vital Sign Reading Time Taken Comments Blood Pressure 161/78 09/23/2021 10:34 AM SKINNING MACHINE FEEDER Pulse 57 09/23/2021 10:34 AM SKINNING MACHINE FEEDER Temperature - - Respiratory Rate 16 09/23/2021 10:34 AM SKINNING MACHINE FEEDER Oxygen Saturation 99% 09/23/2021 10:34 AM SKINNING MACHINE FEEDER Inhaled Oxygen Concentration - - Weight 79.4 kg (175 lb) 09/23/2021 10:34 AM SKINNING MACHINE FEEDER Height 167.6 cm (5' 6) 09/23/2021 10:34 AM SKINNING MACHINE FEEDER Body Mass Index 28.25 09/23/2021 10:34 AM SKINNING MACHINE FEEDER documented in this encounter Progress Notes Von Landeros CMA - 09/23/2021 10:30 AM CST [facility] Vascular [facility] Patient is here for a [...] and agency name: No Von Landeros CMA NING MACHINE FEEDER Gallito Gonzalez MD - 09/23/2021 10:30 AM [...] I discussed the case with Dr. Orosco. 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, [facility] PCP - General 05/12/17 [address] [place] [address] documented as of this encounter
--- OUTSIDE RECORDS SUMMARY | 2022-06-20 08:50 | XMS_ITS | Encounter Summary ---
:1940 Author Organization [place] Address [address] [place] [address] Care Team Providers Name Role Phone Clinic, [facility] Primary Care Provider [phone] Encounter Details Date Type Department Care Team [...] with No / Unsure 09/23/2021 10:26 AM FLIGHT RADIO OFFICER someone who was confirmed or suspected to have Coronavirus / COVID-19? documented as of this encounter Plan of Treatment Not on filedocumented as of this encounter Visit Diagnoses Not on filedocumented in this encounter Additional Health Concerns Infection Onset Date Last Indicated Resolved Time MRSAComment: Positive 02/17/11 and 09/22/12 11/05/2018 019 Negatives 05/03/14 (HE), 12/01/14 (HE) documented as of this encounter Care Teams Calibration Engineer Relationship Specialty Start Date End Date Clinic, [facility] PCP - General 05/12/17 [address] [place] [phone] documented as of this encounter
--- OUTSIDE RECORDS SUMMARY | 2022-06-20 08:50 | XMS_ITS | Encounter Summary ---
:1940 Author Organization [facility] Address [address] [place] [address] Care Team Providers Name Role Phone Unavailable Primary Care Provider Unavailable Encounter Details Date Type Department Care Team Description 05/28/2022 Treatment [facility] Denilson Quinones MD [address] [place] [address] [place], [place] [phone] (Wo rk) Social History Tobacco Use Types Packs/Day Years Used Date Smoking Tobacco: Never Assessed Sex Assigned at Date Recorded Not on file documented as of this encounter Miscellaneous Notes Dialysis Note - Denilson Holly MD - 05/28/2022 12:50 PM CDT Date: May 28, 2022 Patient Name: Speedy Hendricks : 1940 Chart #: [id number] Sex: M DRY CELL TESTER: Denilson Holly MD LOCATION: [place] [phone] SCHEDULE: M-W- 2nd Shift Chief Complaint: Acute [...] HD, but still requiring HD. Transferred from [place] rehab to [facility], hoping to get home. First Hd here today, dry weight much lower than what they had listed it appears. Med list reviewed from [facility], on midodrine for hypotension with HD. [...] Hx of above, complex co-morbidities, hospitalized in [place] for AAA rupture while on boat -> TEVAR extension on 01/03/22 -> multiple complications including ARF requiring CRRT/HD, staph pneumonia, chronic resp failure with long mech vent/trach (trach out), R hydropneumothorax, DVT, a-fih, UGI bleed, DIC, critical illness myopathy, sepsis, and dysphagia (had feeding tube, now removed). Went to rehab, transferred back to [place] to [facility] for ongoing rehab closer to home. [facility] and in [place]. His daughter Raquel is ICU/BROADCASTING EQUIPMENT MECHANIC (ramone currently) and is very involved. Problem [...] and he is considering. WIll send to [facility] as soon as he accepts Will keep [...]
--- OUTSIDE RECORDS SUMMARY | 2022-06-20 08:50 | XMS_ITS | Encounter Summary ---
:1940 Author Organization [facility] Address [address] [place] [address] Care Team Providers Name Role Phone Unavailable Primary Care Provider Unavailable Encounter Details Date Type Department Care Team Description 04/16/2022 Treatment [facility] Denilson Quinones MD [address] [place] [address] [place], [place] [phone] [phone] (Wo rk) Social History Tobacco Use Types Packs/Day Years Used Date Smoking Tobacco: Never Assessed Sex Assigned at Date Recorded Not on file documented as of this encounter Miscellaneous Notes Dialysis Note - Denilson Holly MD - 04/16/2022 3:44 PM CDT Date: Apr 16, 2022 Patient Name: Speedy Hendricks : 1940 Chart #: [id number] Sex: M Patient Type: DEJA Modality: Hemodialysis Assistant Professor Of English: Denilson Holly MD Location: [place] [phone] Schedule: M-W-F 2nd Shift Initial Access Date [...] Name: Speedy Hendricks : 1940 Chart #: [id number] Sex: M VENEER TRIMMER: Denilson Holly MD LOCATION: [phone] SCHEDULE: -W- 2nd Shift Chief Complaint: Acute [...] requiring HD. Transferred from [place] rehab to [facility] here, hoping to get home. First Hd here today, dry weight much lower than what they had listed it appears. Med list reviewed from [facility], on midodrine for hypotension with HD. [...] removed). Went to rehab, transferred back to [place] to [facility] for ongoing rehab closer to home. [facility] in [place]. His daughter Raquel is ICU/ASSOCIATE PROFESSOR OF VIOLIN (ramone currently) and is very involved. Problem [...] - Cath - Tunneled Will send to [facility] for [facility]AVG placement as on HD for [...]
--- OUTSIDE RECORDS SUMMARY | 2022-06-20 08:50 | XMS_ITS | Encounter Summary ---
:1940 Author Organization [facility] Address [address] [place] [address] Care Team Providers Name Role Phone Unavailable Primary Care Provider Unavailable Encounter Details Date Type Department Care Team Description 05/07/2022 Orders Only [facility] f Denilson Quinones MD [address] [place] [address] [place], [place] [phone] (Wo rk) Social History Tobacco Use [...] MD LAB BLOOD ORDERABLES Performing Organization Address City/[facility] Code Phon e Number APS SPECTRA [facility] GFR (05/07/2022) P athologist Signature eGFR CKD-EPI CR 30 mL/min APS SPECTRA 2020 [facility] Comment: [employer] has implemented the recommended eGFR calculation that [...] 05/08/2022 Unless otherwise specified, test(s) performed at: [employer], [address] [place] [address], [place] [address] RACE ENGINE BUILDER: Raheem Malik M.D., Ph.D For any questions, please call customer service at FREQUENCY:OTHER Resulting Agency Comment Specimen source: Serum Denilson Holly MD LAB [id number] NSOLICITED RESULTS Performing Organization Address City/[facility] Code Phon e Number APS SPECTRA [...] 05/08/2022 Unless otherwise specified, test(s) performed at: [employer], [address] [place] [address], [place] [address] RACE ENGINE BUILDER: Raheem Malik M.D., Ph.D For any questions, please call customer service at FREQUENCY:OTHER Resulting Agency Comment Specimen source: Blood Denilson Holly MD LAB BLOOD ORDERABLES Performing Organization Address City/State/ZIP Code Phon e Number APS SPECTRA [facility] documented in this encounter Visit Diagnoses Not on filedocumented in this encounter
--- OUTSIDE RECORDS SUMMARY | 2022-06-20 08:50 | XMS_ITS | Encounter Summary ---
:1940 Author Organization [facility] Address [address] [place] [address] Care Team Providers Name Role Phone Unavailable Primary Care Provider Unavailable Encounter Details Date Type Department Care Team Description 05/14/2022 Treatment [facility] Denilson Quinones MD [address] [place] [address] [place], [place] [phone] (Wo rk) Social History Tobacco Use Types Packs/Day Years Used Date Smoking Tobacco: Never Assessed Sex Assigned at Date Recorded Not on file documented as of this encounter Miscellaneous Notes Dialysis Note - Denilson Holly MD - 05/14/2022 1:29 PM CDT Date: May 14, 2022 Patient Name: Speedy Hendricks : 1940 Chart #: [id number] Sex: M FACE BOSS: Denilson Holly MD LOCATION: [place] [phone] SCHEDULE: M-W-F 2nd Shift Chief Complaint: Acute [...] HD, but still requiring HD. Transferred from [place] rehab to [facility] here, hoping to get home. First Hd here today, dry weight much lower than what they had listed it appears. Med list reviewed from [facility], on midodrine for hypotension with HD. [...] Hx of above, complex co-morbidities, hospitalized in [place] for AAA rupture while on boat -> TEVAR extension on 01/03/22 -> multiple complications including ARF requiring CRRT/HD, staph pneumonia, chronic resp failure with long mech vent/trach (trach out), R hydropneumothorax, DVT, a-fih, UGI bleed, DIC, critical illness myopathy, sepsis, and dysphagia (had feeding tube, now removed). Went to rehab, transferred back to [place] to [facility] for ongoing rehab closer to home. He has [facility] and in [place]. His daughter Raquel is ICU/ACCOUNT SUPPORT MANAGER (ramone currently) and is very involved. Problem [...] procaine Unknown Med list reviewed from [facility] Adequacy & Blood Pressure: spKt/V Gotch [...]
--- OUTSIDE RECORDS SUMMARY | 2022-06-20 08:50 | XMS_ITS | Encounter Summary ---
:1940 Author Organization [place] Address [facility] [place] [address] Care Team Providers Name Role Phone Clinic, [facility] Primary Care Provider Gallito Gonzalez MD Unavailable Encounter Details Date Type Department Care Team Description 11/04/2021 Telephone [facility] Vascular Gallito Gonzalez, Clinic Tram [place] [address] [place] [address] [place] [address] [phone] (Wo rk) Social History Tobacco Use Types [...] Gonzalez and pt notified. SHASTA Sotomayor, JOSE [facility] Office: [phone] Telephone Encounter - Ro Taylor RN - 11/26/2021 1:[address] Gonzalez, Dr. Orosco was notified. Awaiting further direction from Dr. Gonzalez upon their discussion and to ensure pts daughter is notified. SHASTA Sotomayor, JOSE [facility] Office: [phone] O CLOWN Telephone Encounter - Ro Taylor RN - 11/04/2021 4:56 PM CST JAMES 09/23/[address] Gonzalez I will get in touch with the patient's daughter after I discussed the case with Dr. Orosco Routing to Dr. Gonzalez for update on this/plan and verification of pts daughter contacted. SHASTA Sotomayor, JOSE [facility] Office: [phone] O CLOWN documented in this encounter Plan of Treatment Not on filedocumented as of this encounter Visit Diagnoses Not on filedocumented in this encounter Additional Health Concerns Infection Onset Date Last Indicated Resolved Time MRSAComment: Positive 02/17/11 and 09/22/12 11/05/2018 019 Negatives 05/03/14 (HE), 12/01/14 (HE) documented as of this encounter Care Teams Doughnut Machine Operator Relationship Specialty Start Date End Date Clinic, [facility] PCP - General 05/12/17 [address] [place] [address] Gallito Gonzalez MD Assigned Heart and Vascular 09/29/21 [address] Provider [place] [address] documented as of this encounter
--- OUTSIDE RECORDS SUMMARY | 2022-06-20 08:50 | XMS_ITS | Encounter Summary ---
:1940 Author Organization [facility] Address [address] [place] [address] Care Team Providers Name Role Phone Unavailable Primary Care Provider Unavailable Encounter Details Date Type Department Care Team Description 05/21/2022 Orders Only [facility] f Denilson Quinones MD [address] [place] [address] [place], [place] [phone] (Wo rk) Social History Tobacco Use [...] 05/27/2022 Unless otherwise specified, test(s) performed at: [employer], [address] [place] [address], [place] [address] OUTSIDE SALES ACCOUNT MANAGER: Raheem Malik M.D., Ph.D For any [...] 24 mL/min APS SPECTRA 2020 [facility] Comment: [employer] has implemented the recommended eGFR calculation [...] 05/27/2022 Unless otherwise specified, test(s) performed at: [employer], [facility] [place] [facility] [place] [address] OUTSIDE SALES ACCOUNT MANAGER: Raheem Malik M.D., Ph.D For any questions, please call customer service at FREQUENCY:MONTHLY Resulting Agency Comment Specimen source: Serum Denilson Holly MD LAB [id number] NSOLICITED RESULTS Performing Organization Address City/State/[facility] Code Phon e Number [...] 05/22/2022 Unless otherwise specified, test(s) performed at: [employer], [address] [place] [address] [place] [facility] [place] [address] OUTSIDE SALES ACCOUNT MANAGER: Raheem Malik M.D., Ph.D For any [...] 05/22/2022 Unless otherwise specified, test(s) performed at: [employer], [address] [place] [address], [place] [address] OUTSIDE SALES ACCOUNT MANAGER: Raheem Malik M.D., Ph.D For any [...] 05/22/2022 Unless otherwise specified, test(s) performed at: [employer], [address] [place] [address] [place] [address] OUTSIDE SALES ACCOUNT MANAGER: Raheem Malik M.D., Ph.D For any questions, please call customer service at FREQUENCY:MONTHLY Resulting Agency Comment Specimen source: Blood Denilson Holly MD LAB BLOOD ORDERABLES Performing Organization Address City/State/ZIP Code Phon e Number APS SPECTRA [facility] documented in this encounter Visit Diagnoses Not on filedocumented in this encounter
--- OUTSIDE RECORDS SUMMARY | 2022-06-20 08:50 | XMS_ITS | Encounter Summary ---
:1940 Author Organization [facility] Address [address] [place] [address] Care Team Providers Name Role Phone Unavailable Primary Care Provider Unavailable Encounter Details Date Type Department Care Team Description 04/16/2022 Orders [facility] f Denilson Quinones MD [address] [place] [address] [place], [place] [phone] (Wo rk) Social History Tobacco Use [...] and its performa nce characteristics determined by [employer]. It has not been cleared or approved [...] 04/17/2022 Unless otherwise specified, test(s) performed at: [employer], [address] [place] [address] END FINDER FORMING DEPARTMENT: Henok Correa M.D. For any questions, please call customer service at FREQUENCY:MONTHLY Resulting Agency Comment Specimen source: Serum Denilson Holly MD LAB BLOOD ORDERABLES Performing Organization Address City/[facility] Code Phon e Number APS SPECTRA [...] above test result was obtained using Siemens [employer] Tidal Poweraur XP chemiluminescent method. Results obtaine d with different assay methods or kits cannot be used interchangeably. Specimen (Source) Anatomical Collection Method Collection Time Re ceived Time Location / / Volume Laterality 04/16/2022 04/17/2022 9:14 AM CDT Narrative APS SPECTRA [facility] - 04/17/2022 Unless otherwise specified, test(s) performed at: [employer], [address] [place] [address] END FINDER FORMING DEPARTMENT: Henok Correa M.D. For any questions, please call customer service at FREQUENCY:MONTHLY Resulting Agency Comment Specimen source: Serum Denilson Holly MD LAB BLOOD ORDERABLES Performing Organization Address City/[facility] Code Phon e Number APS SPECTRA [facility] (ABNORMAL) Spectrae Chemistry (04/16/2022) P athologist Signature PTH 108 (H) 16 - 80 APS SPECTRA pg/mL [facility] Specimen (Source) Anatomical Collection Method Collection Time Re ceived Time Location / / Volume Laterality 04/16/2022 04/17/2022 9:16 AM CDT Narrative APS SPECTRA [facility] - 04/17/2022 Unless otherwise specified, test(s) performed at: [employer], [address] [place] [address] END FINDER FORMING DEPARTMENT: Henok Corrae M.D. For any questions, please call customer service at FREQUENCY:MONTHLY Resulting Agency Comment Specimen source: Plasma Denilson Holly MD LAB BLOOD ORDERABLES Performing Organization Address City/[facility] Code Phon e Number APS SPECTRA [facility] HD KINETICS (04/16/2022) P athologist Signature % Urea 69 65 - 80 % APS SPECTRA Reduction [facility] Specimen (Source) Anatomical Collection Method Collection Time Re ceived Time Location / / Volume Laterality 04/16/2022 04/17/2022 9:14 AM CDT Resulting Agency Comment Specimen source: Serum Denilson Holly MD LAB BLOOD ORDERABLES Performing Organization Address City/[facility]/ZIP Code Phon e Number APS SPECTRA [facility] POST CHEMISTRY (04/16/2022) P athologist Signature BUN Post 18 6 - 19 APS SPECTRA Dialysis mg/dL [facility] Specimen (Source) Anatomical Collection Method Collection Time Re ceived Time Location / / Volume Laterality 04/16/2022 04/17/2022 9:08 AM CDT Narrative APS SPECTRA [facility] - 04/17/2022 Unless otherwise specified, test(s) performed at: [employer], [address] [place] [address] END FINDER FORMING DEPARTMENT: Henok Correa M.D. For any questions, please [...] 04/17/2022 Unless otherwise specified, test(s) performed at: [employer], [address] [place], [place] [id number] END FINDER FORMING DEPARTMENT: Henok Correa M.D. For any questions, please call customer service at FREQUENCY:MONTHLY Resulting Agency Comment Specimen source: Serum Denilson Holly MD LAB BLOOD ORDERABLES Performing Organization Address City/State/ZIP Code Phon e Number APS SPECTRA [facility] GFR (04/16/2022) P athologist Signature eGFR CKD-EPI CR 28 mL/min APS SPECTRA 2020 [facility] Comment: [employer] has implemented the recommended eGFR calculation that [...] 04/17/2022 Unless otherwise specified, test(s) performed at: [employer], [address] [place] [address] END FINDER FORMING DEPARTMENT: Henok Correa M.D. For any questions, please call customer service at FREQUENCY:MONTHLY Resulting Agency Comment Specimen source: Serum Denilson Holly MD LAB [id number] NSOLICITED RESULTS Performing Organization Address City/State/ZIP Code Phon e Number APS SPECTRA [facility] (ABNORMAL) HEMATOLOGY (04/16/2022) [facility] gist Method Time Signature WBC 7.73 [...] - 1.5 APS SPECTRA Relative % [facility] YAIREL 1.7 0.0 - 4.0 APS SPECTRA % [facility] Platelets 229 130 - 400 APS SPECTRA 1000/mcL [facility] Specimen (Source) Anatomical Collection Method Collection Time Re ceived Time Location / / Volume Laterality 04/16/2022 04/17/2022 9:16 AM CDT Narrative APS SPECTRA [facility] - 04/17/2022 Unless otherwise specified, test(s) performed at: [employer], [address] [place] [id number] END FINDER FORMING DEPARTMENT: Henok Correa M.D. For any questions, please call customer service at FREQUENCY:MONTHLY Resulting Agency Comment Specimen source: Blood Denilson Holly MD LAB BLOOD ORDERABLES Performing Organization Address City/State/ZIP Code Phon e Number APS SPECTRA [facility] documented in this encounter Visit Diagnoses Not on filedocumented in this encounter
--- OUTSIDE RECORDS SUMMARY | 2022-06-20 08:50 | XMS_ITS | Encounter Summary ---
:1940 Author Organization [facility] Address [address] [place] [address] Care Team Providers Name Role Phone Unavailable Primary Care Provider Unavailable Encounter Details Date Type Department Care Team Description 05/14/2022 Orders Only [facility] O f Denilson Quinones MD [address] [place] [address] [place], [place] [phone] (Wo rk) Social History Tobacco Use [...] 05/15/2022 Unless otherwise specified, test(s) performed at: [employer]), [address] [place] [address] gideon [facility] [place] [address] RADIO PROGRAM CHECKER: Raheem Malik M.D., Ph.D For any questions, [...] MD LAB BLOOD ORDERABLES Performing Organization Address City/[facility]/ZIP Code Phon e Number APS SPECTRA [facility] GFR (05/14/2022) P athologist Signature eGFR CKD-EPI CR 24 mL/min APS SPECTRA 2020 [facility] Comment: [employer] has implemented the recommended eGFR calculation that [...] 05/15/2022 Unless otherwise specified, test(s) performed at: [employer] [facility]), [address] [place] [address] [place] [address] RADIO PROGRAM CHECKER: Raheem Malik M.D., Ph.D For any questions, please call customer service at FREQUENCY:OTHER Resulting Agency Comment Specimen source: Serum Denilson Holly MD LAB [id number] NSOLICITED RESULTS Performing Organization Address City/State/ZIP Code Phon e Number APS SPECTRA [facility] documented in this encounter Visit Diagnoses Not on filedocumented in this encounter
--- OUTSIDE RECORDS SUMMARY | 2022-06-20 08:50 | XMS_ITS | Encounter Summary ---
:1940 Author Organization [facility] Address [address] [place] [address] Care Team Providers Name Role Phone Unavailable Primary Care Provider Unavailable Encounter Details Date Type Department Care Team Description 05/19/2022 Orders Only [facility] f Denilson Quinones MD [address] [place] [address] [place], [place] [phone] (Wo rk) Social History Tobacco Use [...] 24 mL/min APS SPECTRA 2020 [facility] Comment: [facility] has implemented the recommended eGFR calculation that [...] 05/20/2022 Unless otherwise specified, test(s) performed at: [facility], [address] [place] [address] TRIMMER TAILER: Raheem Malik M.D., Ph.D For any questions, please call customer service at FREQUENCY:OTHER Resulting Agency Comment Specimen source: Serum Denilson Holly MD LAB [id number] NSOLICITED RESULTS Performing Organization Address City/[facility] Phon e Number APS SPECTRA [facility] PATIENT [...] 05/20/2022 Unless otherwise specified, test(s) performed at: [facility], [address] [place] [address] TRIMMER TAILER: Raheem Malik M.D., Ph.D For any questions, please call customer service at FREQUENCY:OTHER Resulting Agency Comment Specimen source: PD Fluid Denilson Holly MD LAB BLOOD ORDERABLES Performing Organization Address City/[facility] Phon e Number APS SPECTRA [facility] documented in this encounter Visit Diagnoses Not on filedocumented in this encounter
--- OUTSIDE RECORDS SUMMARY | 2022-06-20 08:50 | XMS_ITS | Encounter Summary ---
:1940 Author Organization [facility] Address [address] [place] [address] Care Team Providers Name Role Phone Unavailable Primary Care Provider Unavailable Encounter Details Date Type Department Care Team Description 04/16/2022 Office Communication [facility] [place] MD [address] [place] [phone] Social History Tobacco Use [...]
--- OUTSIDE RECORDS SUMMARY | 2022-06-20 08:50 | XMS_ITS | Clinical Summary ---
:1940 Author Organization [facility] Address [address] [place] [address] Care Team Providers Name Role Phone Clinic, [facility] Primary Care Provider [phone] Gallito Gonzalez MD Unavailable Allergies Active Allergy [...] Comments Blood Pressure 161/78 09/23/2021 10:34 AM TOURING PRODUCTION MANAGER Pulse 57 09/23/2021 10:34 AM TOURING PRODUCTION MANAGER Temperature 36.6 ??C (97.9 ??F) 11/09/2018 7:31 AM TOURING PRODUCTION MANAGER Respiratory Rate 16 09/23/2021 10:34 AM TOURING PRODUCTION MANAGER Oxygen Saturation 99% 09/23/2021 10:34 AM TOURING PRODUCTION MANAGER Inhaled Oxygen Concentration - - Weight 79.4 kg (175 lb) 09/23/2021 10:34 AM TOURING PRODUCTION MANAGER Height 167.6 cm (5' 6) 09/23/2021 10:34 AM TOURING PRODUCTION MANAGER Body Mass Index 28.25 09/23/2021 10:34 AM TOURING PRODUCTION MANAGER Plan of Treatment Health Maintenance Due [...] this topic Medical Devices Implanted Type Area Servicenow Administrator Device Shelf Model / Identifier Expiration Serial / Date Lot Graft Master Matrix 10cc [id number] Bone/Tissue N/A: Back [employer] 04/17/2017 [id number] / Implanted: Qty: 1 on 11/29/2014 /Biologic / [id number] Medtronic Valiant Navion Thoracic Graft System (37mm X 37mm X 223mm X 20fr.) Graft N/A: Aorta [employer] 07/25/2020 [id number] / Implanted: Qty: 1 on 11/05/2018 by Juan Delcid MD at [facility] [id number] / Alessio Precut Contoured 70x5.5mm Metallic N/A: Back [employer] [id number] / Implanted: Qty: 2 on 11/29/2014 Hardware/An / chor NA Cervical Rods/Screws Angio-Seal Vip Vascular Closure Device Right: 08/18/2019 [id number] / Implanted: Qty: 1 on 11/05/2018 by Juan Delcid MD at [facility] Arterial / [id number] Description: Perclose Device sutured int o the right common femoral artery. Explanted Type Area Servicenow Administrator Device Shelf Model / Identifier Expiration Date Ser ial / Lot Pedicle Screws Metallic And Rods Hardware/Anch or Additional Health Concerns Infection Onset Date Last Indicated MRSAComment: Positive 02/17/11 and 09/22/12 11/05/2018 11/05/2018 Negatives 05/03/14 (HE), 12/01/14 (HE) Insurance Payer Benefit Plan / Subscriber ID Effective Phone Address T ype Group Dates MEDICARE MEDICARE FOR HB [id number] 2012-Prese [phone] ATTN CLAIMS Medicare SUPPLEMENT nt 40 [address] [place] [address] BCBS BC[place] [id number] 2012-Prese [phone] [address] [address] PPO BLUE nt 00 [place] [address] Advance Directives For more information, please contact: [phone] Latest Code Status on File Code Status Date Activated Date Inactivated Comments Full Code 11/15/2017 2:04 AM 11/15/2017 2:27 PM Full Code 05/12/2017 1:29 PM 11/15/2017 2:04 AM Full Code 05/05/2017 5:50 PM 05/12/2017 1:29 PM Care Teams Creative Project Manager Relationship Specialty Start Date End Date [facility] PCP - General 05/12/[address] [place] [address] Gallito Gonzalez MD Assigned Heart and Vascular 09/29/21 [address] Provider ORLANDO GORDON [address]
--- OUTSIDE RECORDS SUMMARY | 2022-06-20 08:50 | XMS_ITS | Encounter Summary ---
:1940 Author Organization [facility] Address [address] [place] [address] Care Team Providers Name Role Phone Unavailable Primary Care Provider Unavailable Encounter Details Date Type Department Care Team Description 04/23/2022 Orders Only [facility] O f Denilson Quinones MD [address] [place] [address] [place], [place] [phone] (Wo rk) Social History Tobacco Use [...] (04/23/2022) P athologist Signature spKt/V Gotch 1.80 JALELE nPCR_HD 0.90 JALEEL PCR 47.62 JALEEL eKdrt/V [...] and its performa nce characteristics determined by [facility]. It has not been cleared or approved by the FDA. The laboratory is regulated under CLIA a s qualified to perform high complexity testing. This test is used fo r clinical purposes. It should not be regarded as investigational or fo r research. Test performed at [facility], [address] [place] [address]. Telephone . Medical Direct or: Henok Correa MD. Specimen (Source) Anatomical Collection Method Collection Time Re ceived Time Location / / Volume Laterality 04/23/2022 04/25/2022 7:04 PM CDT Narrative APS SPECTRA [facility] - 04/27/2022 Unless otherwise specified, test(s) performed at: [facility], [address] [place] [address], [place] [address] DECAL CUTTER: Raheem Malik M.D., Ph.D For any questions, [...] the general public, refer to MMWR [facility] 2004/Vol.54 (No. 16); -, and for healthcare [...] 04/26/2022 Unless otherwise specified, test(s) performed at: [facility], [address] [place] [address], [place] [address] DECAL CUTTER: Raheem Malik M.D., Ph.D For any questions, [...] 04/25/2022 Unless otherwise specified, test(s) performed at: [facility], [address] [place] [address], [place] [address] DECAL CUTTER: Raheem Malik M.D., Ph.D For any questions, [...] 04/25/2022 Unless otherwise specified, test(s) performed at: [facility], [address] [place] [address] [place] [address] DECAL CUTTER: Raheem Malik M.D., Ph.D For any questions, [...] 04/25/2022 Unless otherwise specified, test(s) performed at: [facility], [address] [place] [address] gideon [place] [address] DECAL CUTTER: Raheem Malik M.D., Ph.D For any questions, please call customer service at FREQUENCY:MONTHLY Resulting Agency Comment Specimen source: Serum Denilson Holly MD LAB BLOOD ORDERABLES Performing Organization Address City/State/ZIP Code Phon e Number APS SPECTRA [facility] documented in this encounter Visit Diagnoses Not on filedocumented in this encounter
--- OUTSIDE RECORDS SUMMARY | 2022-06-20 08:50 | XMS_ITS | Clinical Summary ---
:1940 Author Organization [facility] Address [address] [place] [address] Care Team Providers Name Role Phone Unavailable Primary Care Provider Unavailable Encounters Date Type Specialty Care Team Description 06/18/2022 Orders Only NephDenilson Isidro MD 06/13/2022 Orders Only NephDenilson Isidro MD 06/11/2022 Orders Only NephDenilson Isidro MD 06/11/2022 Treatment Denilson Holly MD 06/04/2022 Orders Only NephDenilson Isidro MD 05/28/2022 [...] Only NephDenilson Isidro MD 04/16/2022 Orders Only NephDenilson Isidro MD 04/16/2022 Treatment Denilson Holly MD 04/16/2022 [...] Date/Time Associated Diagnosis Comme nts HEMATOLOGY Routine 06/18/2022 Results for thi s procedure are i n the results section . CHEMISTRY Routine 06/18/2022 Results for thi s procedure are i n the results section . URINE CLEARANCE Routine 06/13/2022 Results for this procedure are i n the results section . CHEMISTRY Routine 06/13/2022 Results for thi s procedure are i n the results section . PATIENT INFORMATION Routine 06/13/2022 Results for this procedure are i n the results section . PATIENT INFORMATION Routine 06/13/2022 Results for this procedure are i n the results section . HEMATOLOGY Routine 06/11/2022 Results for thi s procedure are i n the results section . CHEMISTRY Routine 06/11/2022 Results for thi s procedure are i n the results section . CHEMISTRY Routine 06/04/2022 Results for thi s [...] from Last 3 Months Results (ABNORMAL) HEMATOLOGY (06/18/2022)Only the most recent of10 resultswithin the time period is included. Analysis Performed At Patho logist Time Signature Hemoglobin 10.2 (L) 14.0 - APS SPECTRA 18.0 g/dL [facility] Hemoglobin x 3 30.6 (L) 42.0 - APS SPECTRA 54.0 % [facility] Specimen (Source) Anatomical Collection Method Collection Time Re ceived Time Location / / Volume Laterality 06/18/2022 06/19/2022 2:36 PM CDT Narrative APS SPECTRA [facility] - 06/19/2022 Unless otherwise specified, test(s) performed at: [facility], [address] [place] [address], [place] [address] MACHINE SHOP REPAIR TECHNICIAN: Raheem Malik M.D., Ph.D For any questions, please call customer service at FREQUENCY:OTHER Resulting Agency Comment Specimen source: Blood Denilson Holly MD LAB BLOOD ORDERABLES Performing Organization Address City/State/ZIP Code Phon e Number APS SPECTRA [facility] (ABNORMAL) Spectrae Chemistry (06/18/2022)Only the most recent of15 results within the time period is included. P athologist Signature BUN 34 (H) 6 - 19 APS SPECTRA mg/dL [facility] Creatinine 2.67 (H) 0.60 - 1.30 APS SPECTRA mg/dL [facility] Comment: Custom Exception BUN/Creatinine Ratio 12.7 10.0 - 20.0 APS SPE CTRA [facility] Sodium 140 136 - 145 mEq/L APS SPECT[facility] [place] [facility] Potassium 4.7 3.5 - 5.1 mEq/L [facility] [place] [facility] Chloride 103 96 - 108 mEq/L [facility]PS SPECTRA [facility] Bicarbonate (CO2) 23 20 - 31 mEq/L APS SPEC TRA [facility] Comment: Please note change in reference range. Specimen (Source) Anatomical Collection Method Collection Time Re ceived Time Location / / Volume Laterality 06/18/2022 06/19/2022 6:58 AM CDT Narrative APS SPECTRA [facility] - 06/19/2022 Unless otherwise specified, test(s) performed at: [facility], [address] [place] [address], [place] [address] MACHINE SHOP REPAIR TECHNICIAN: Raheem Malik M.D., Ph.D For any questions, please call customer service at FREQUENCY:OTHER Resulting Agency Comment Specimen source: Serum Denilson Holly MD LAB BLOOD ORDERABLES Performing Organization Address City/State/ZIP Code Phon e Number APS SPECTRA [facility] (ABNORMAL) URINE CLEARANCE (06/13/2022)Only the most recent of2 resultswithin the time period is included. Analysis Performed At Patho logist Time Signature Urea Nitrogen, 177 mg/dL APS [...] 06/14/2022 Unless otherwise specified, test(s) performed at: [facility], [address] [place] [address], [place] [address] MACHINE SHOP REPAIR TECHNICIAN: Raheem Malik M.D., Ph.D For any questions, please call customer service at FREQUENCY:OTHER Resulting Agency Comment Specimen source: Urine Denilson Holly MD LAB URINE ORDERABLES Performing Organization Address [facility] Phon e Number [email or web address] KSN PATIENT INFORMATION (06/13/2022)Only the most recent of6 resultswithin the time period is included. athologist [facility] Patient BSA 1.77 sq. M. [email or web address] KSN Comment: Normalized values are calculated using t he patient's actual BSA and normalized to the average BSA of 1.73m2. Specimen (Source) Anatomical Collection Method Collection Time Re ceived Time Location / / Volume Laterality 06/13/2022 06/14/2022 2:50 AM CDT Narrative [email or web address] - 06/14/2022 Unless otherwise specified, test(s) performed at: [facility], [address] [place] [address], [place] [address] MACHINE SHOP REPAIR TECHNICIAN: Raheem Malik M.D., Ph.D For any questions, please call customer service at FREQUENCY:OTHER Resulting Agency Comment Specimen source: PD Fluid Denilson Holly MD LAB BLOOD ORDERABLES Performing Organization Address [facility] e Number [facility] GFR (05/28/2022)Only the most recent of8 resultswithin the time period is included. athologist [facility] eGFR CKD-EPI CR 30 mL/min [facility] 2020 [facility] Comment: [facility] has implemented the recommended eGFR calculation that [...] 05/29/2022 Unless otherwise specified, test(s) performed at: [facility], [address] [place] [address], [place] [address] MACHINE SHOP REPAIR TECHNICIAN: Raheem Malik M.D., Ph.D For any questions, please call customer service at FREQUENCY:OTHER Resulting Agency Comment Specimen source: Serum Denilson Holly MD LAB [id number] NSOLICITED RESULTS Performing Organization Address City/State/ZIP Code [...] 05/27/2022 Unless otherwise specified, test(s) performed at: [facility], [address] [place] [address], [place] [address] MACHINE SHOP REPAIR TECHNICIAN: Raheem Malik M.D., Ph.D For any questions, please call customer service at FREQUENCY:MONTHLY Resulting Agency Comment Specimen source: Plasma Denilson Holly MD LAB BLOOD ORDERABLES Performing Organization Address City/State/ZIP Code Phon e Number APS SPECTRA [facility] POST CHEMISTRY (05/21/2022)Only the most recent of3 resultswithin the time period is included. P athologist Signature BUN Post 13 6 - 19 APS SPECTRA Dialysis mg/dL [facility] Specimen (Source) Anatomical Collection Method Collection Time Re ceived Time Location / / Volume Laterality 05/21/2022 05/22/2022 5:02 AM CDT Narrative APS SPECTRA [facility] - 05/22/2022 Unless otherwise specified, test(s) performed at: [facility], [facility] [place] [address] MACHINE SHOP REPAIR TECHNICIAN: Raheem Malik M.D., Ph.D For any questions, please call customer service at FREQUENCY:MONTHLY Resulting Agency Comment Specimen source: Plasma Denilson Holly MD LAB BLOOD ORDERABLES Performing Organization Address City/[facility] Phon e Number APS SPECTRA [facility] IMMUNO [...] refer to MMWR Decemb 2004/Vol.54 (No. 16); 1-23, and for healthcare [...] 05/22/2022 Unless otherwise specified, test(s) performed at: [facility], [facility] [place] [address] MACHINE SHOP REPAIR TECHNICIAN: Raheem Malik M.D., Ph.D For any questions, please call customer service at FREQUENCY:MONTHLY Resulting Agency Comment Specimen source: Plasma Denilson Holly MD LAB BLOOD ORDERABLES Performing Organization Address City/[facility]/ZIP Code Phon e Number APS SPECTRA [facility] Spectra JALEEL Lab Results (05/21/2022)Only the most recent of3 resultswithin the time period is included. P athologist Signature eKt/V 1.39 JALEEL ([place]) spKt/V 1.66 JALEEL (Daugirdas II) eKt/V Gotch 1.45 JALEEL PCR 47.07 JALEEL eNPCR 0.96 JALEEL nPCR_HD 1.05 JALEEL spKt/V Gotch 1.78 JALEEL eKdrt/V 1.45 JALEEL Specimen (Source) Anatomical Location Collection Method / Collectio n Time Received Time / Laterality Volume 05/21/2022 05/21/2022 Jaleel Ordering Provider LAB BLOOD ORDERABLES Performing Organization Address City/[facility]/ZIP Code Phon e Number JALEEL TRACE ELEMENTS (04/23/2022)Only the most recent of2 resultswithin the time period is included. P athologist Signature Aluminum <5 0 - 10 APS SPECTRA mcg/L [facility] Comment: This test was developed and its performa nce characteristics determined by [facility]. It has not been cleared or approved by the FDA. The laboratory is regulated under CLIA a s qualified to perform high complexity testing. This test is used fo r clinical purposes. It should not be regarded as investigational or fo r research. Test performed at [facility], [address] [place] [address]. Telephone . Medical Direct or: Henok Correa MD. Specimen (Source) Anatomical Collection Method Collection Time Re ceived Time Location / / Volume Laterality 04/23/2022 04/25/2022 7:04 PM CDT Narrative APS SPECTRA [facility] - 04/27/2022 Unless otherwise specified, test(s) performed at: [facility], [address] [place] [address] gideon [place] [address] MACHINE SHOP REPAIR TECHNICIAN: Raheem Malik M.D., Ph.D For any questions, please call customer service at FREQUENCY:MONTHLY Resulting Agency Comment Specimen source: Serum Denilson Holly MD LAB BLOOD ORDERABLES Performing Organization Address City/[facility]/ZIP Code Phon e Number APS SPECTRA [facility] from Last 3 Months Insurance Payer Benefit Plan / Subscriber ID Effective Dates Phone Addre ss Type Group [place] [id number] 2016-Present [phone] [address] [address] ([id number]) [place] [address]
--- OUTSIDE RECORDS SUMMARY | 2022-06-20 08:50 | XMS_ITS | Encounter Summary ---
:1940 Author Organization [facility] Address [address] [place] [address] Care Team Providers Name Role Phone Unavailable Primary Care Provider Unavailable Encounter Details Date Type Department Care Team Description 06/18/2022 Orders Only [facility] O f Denilson Quinones MD [address] [place] [address] [place], [place] [phone] (Wo rk) Social History Tobacco Use Types Packs/Day Years Used Date Smoking Tobacco: Never Assessed Sex Assigned at Date Recorded Not on file documented as of this encounter Plan of Treatment Not on filedocumented as of this encounter Procedures Procedure Name Priority Date/Time Associated Diagnosis Comme nts HEMATOLOGY Routine 06/18/2022 Results for thi s procedure are in the resu lts section. CHEMISTRY Routine 06/18/2022 Results for thi s procedure are in the resu lts section. documented in this encounter Results (ABNORMAL) HEMATOLOGY (06/18/2022) Analysis Performed At Patho logist Time Signature Hemoglobin 10.2 (L) 14.0 - APS SPECTRA 18.0 g/dL [facility] Hemoglobin x 3 30.6 (L) 42.0 - APS SPECTRA 54.0 % [facility] Specimen (Source) Anatomical Collection Method Collection Time Re ceived Time Location / / Volume Laterality 06/18/2022 06/19/2022 2:36 PM CDT Narrative APS SPECTRA [facility] - 06/19/2022 Unless otherwise specified, test(s) performed at: [facility], [address] [place] [address], [place] [address] HOIST OPERATOR: Raheem Malik M.D., Ph.D For any questions, please call customer service at FREQUENCY:OTHER Resulting Agency Comment Specimen source: Blood Denilson Holly MD LAB BLOOD ORDERABLES Performing Organization Address City/State/ZIP Code Phon e Number APS SPECTRA [facility] (ABNORMAL) Spectrae Chemistry (06/18/2022) P athologist Signature BUN 34 (H) 6 [...] 06/19/2022 Unless otherwise specified, test(s) performed at: [facility], [address] [place], [place] [address]ann [place] [address] HOIST OPERATOR: Raheem Malik M.D., Ph.D For any questions, please call customer service at FREQUENCY:OTHER Resulting Agency Comment Specimen source: Serum Denilson Holly MD LAB BLOOD ORDERABLES Performing Organization Address City/State/[facility] Code Phon e Number APS SPECTRA [facility] documented in this encounter Visit Diagnoses Not on filedocumented in this encounter
--- OUTSIDE RECORDS SUMMARY | 2022-06-20 08:50 | XMS_ITS | Encounter Summary ---
:1940 Author Organization [facility] Address [address] [place] [address] Care Team Providers Name Role Phone Clinic, [facility] Primary Care Provider [phone] Encounter Details Date Type Department Care Team [...] documented as of this encounter Care Teams Special Education Case Manager Relationship Specialty Start Date End Date [facility] - General 05[facility] [address] [id number] documented as of this encounter
--- OUTSIDE RECORDS SUMMARY | 2022-06-20 08:50 | XMS_ITS | Encounter Summary ---
:1940 Author Organization [facility] Address [address] [place] [address] Care Team Providers Name Role Phone Unavailable Primary Care Provider Unavailable Encounter Details Date Type Department Care Team Description 06/11/2022 Orders Only [facility] Denilson Quinones MD [address] [place] [address] [place], [place] [phone] [address] (Wo rk) Social History Tobacco Use Types Packs/Day Years Used Date Smoking Tobacco: Never Assessed Sex Assigned at Date Recorded Not on file documented as of this encounter Plan of Treatment Not on filedocumented as of this encounter Procedures Procedure Name Priority Date/Time Associated Diagnosis Comme nts HEMATOLOGY Routine 06/11/2022 Results for thi s procedure are in the resu lts section. CHEMISTRY Routine 06/11/2022 Results for thi s procedure are in the resu lts section. documented in this encounter Results (ABNORMAL) HEMATOLOGY (06/11/2022) Analysis Performed At Patho logist Time Signature Hemoglobin 10.6 (L) 14.0 - [facility] 18.0 g/dL [facility] Hemoglobin x 3 31.8 (L) 42.0 - [facility] 54.0 % [facility] Specimen (Source) Anatomical Collection Method Collection Time Re ceived Time Location / / Volume Laterality 06/11/2022 06/12/2022 2:24 PM CDT Narrative [facility] - 06/12/2022 Unless otherwise specified, test(s) performed at: [facility], [address] [place] [address], [place] [address] PROCESS ENG: Raheem Malik M.D., Ph.D For any questions, please call customer service at FREQUENCY:OTHER Resulting Agency Comment Specimen source: Blood Denilson Holly MD LAB BLOOD ORDERABLES Performing Organization Address City/State/[facility] Code Phon e Number [facility] (ABNORMAL) [facility] Chemistry (06/11/2022) P athologist Signature BUN 29 (H) 6 - 19 [facility] mg/dL [facility] Creatinine 2.44 (H) 0.60 - 1.30 [facility] mg/dL [facility] Comment: Custom Exception BUN/Creatinine Ratio 11.9 10.0 - 20.0 [facility]TRA [facility] Sodium 142 136 - 145 mEq/L [facility] Potassium 4.6 3.5 - 5.1 mEq/L [facility] Chloride 105 96 - 108 mEq/L [facility] Bicarbonate (CO2) 28 20 - 31 mEq/L [facility] Comment: Please note change in reference range. Specimen (Source) Anatomical Collection Method Collection Time Re ceived Time Location / / Volume Laterality 06/11/2022 06/12/2022 12:2 6 PM CDT Narrative [facility] - 06/12/2022 Unless otherwise specified, test(s) performed at: [facility], [address] [place], [place] [address] [place] [address] PROCESS ENG: Raheem Malik M.D., Ph.D For any questions, please call customer service at FREQUENCY:OTHER Resulting Agency Comment Specimen source: Serum Denilson Holly MD LAB BLOOD ORDERABLES Performing Organization Address City/[facility] Code Phon e Number [facility] documented in this encounter Visit Diagnoses Not on filedocumented in this encounter
--- OUTSIDE RECORDS SUMMARY | 2022-06-20 08:51 | XMS_ITS | Encounter Summary ---
:1940 Author Organization [place] Address [facility] [address] Care Team Providers Name Role Phone Clinic, [facility] Primary Care Provider [phone] Reason for Visit Reason Onset Date Comments Pain 08/08/2021 Encounter Details Date Type Department Care Team Description 08/08/2021 Telephone [facility] Ramiro Loco MD Pain Clinic [place] [address] [place] [address] [place] [address] [phone] Social History Tobacco Use Types Packs/Day Years [...] Kim Neal - 08/20/2021 8:38 AM CDT [facility] Who is the name of the provider? Dr Gonzalez What is the location you see this provider at? [place] Reason for call: Returned RN's call - relayed message - Pt is scheduled for Dr Gonzalez on 08/29/21 [employer]: Raquel Phone number to call: [phone] Additional Notes: Telephone Encounter - Ro Taylor RN - 08/19/2021 4:37 PM CDT Discussed with Dr. Gonzalez, pt may have office visit with Dr. Gonzalez at next available, no further imaging needed. SHASTA Sotomayor, JOSE [facility] [place] Office: [phone] Telephone Encounter - Cindy Taylor RN - 08/19/2021 4:29 PM CDT I called Raquel and PHIL stating we will discuss with Dr. Gonzalez and get back to her. Cindy VEGAS, JOSE [facility] Office: [phone] Telephone Encounter - Kim Neal - 08/19/2021 3:55 PM CDT [facility] Who is the name of the provider? Prev Dr Lewis, Dr Brown and Dr Loco Pt What is the location you see this provider at? [place] / [place] Reason for call: 1. Pt has not [...] see Dr Gonzalez for another opinion/follow up. [employer]: Raquel Phone number to call: [phone] Additional Notes: Pt stated he is still [...] Pt will need oral hydration. Routing to home health scheduler to coordinate CTA c/a/p today. Please call pts daughter to coordinate [phone]. Then in person OV f/u with Dr. Loco at next nearest available. SHASTA Sotomayor, RN [facility] Office: [phone] Telephone Encounter - Ro Taylor RN - [...] has had consult with Dr. Orosco at [place], no further AAA surgery with Dr. Orosco. Reviewed with Rosairo Hendricks MD. SHASTA Sotomayor, RN [facility] Office: [phone] Telephone Encounter - Lillian Uribe MA - [...] She would like a call back at [phone] documented in this encounter Plan of Treatment Not on filedocumented as of this encounter Visit Diagnoses Not on filedocumented in this encounter Additional Health Concerns Infection Onset Date Last Indicated Resolved Time MRSAComment: Positive 02/17/11 and 09/22/12 11/05/2018 019 Negatives 05/03/14 (HE), 12/01/14 (HE) documented as of this encounter Care Teams Analog Ic Design Engineer Relationship Specialty Start Date End Date Clinic, [facility] PCP - General 05/12/[address] [place] [address] documented as of this encounter
--- OUTSIDE RECORDS SUMMARY | 2022-06-20 08:51 | XMS_ITS | Encounter Summary ---
:1940 Author Organization [place] Address [address] [facility] [place] [address] Care Team Providers Name Role Phone Clinic, [facility] Primary Care Provider Reason for Visit Diagnostic Imaging CT Scan (Routine) - Closed Specialty Diagnoses / Procedures Referred By Contact Refer red To Contact Radiology. Diagnoses Thoracic aortic aneurysm (H) Butch Brown MD Ct Scan Procedures CT Chest Abdomen Pelvis w/o Contrast CTA Chest Abdomen Pelvis w Contrast [address] [place] [address] [place] [address] [place] [address] Referral ID Status Reason Start Date Expiration Date Visits Requ ested Visits Authorized [id number] Closed 11/26/2018 11/26/2019 1 1 Encounter Details Date Type Department Care Team Description 05/17/2019 Hospital Encounter [facility] [place] aneurysm (H) [address] [place] [address] [address] [place] [address] Social History Tobacco Use Types Packs/Day Years [...] CDT 10:23 AM CDT [facility] Performing Organization Address City/State/ZIP Code [...] documented as of this encounter Care Teams Educational Advisor Relationship Specialty Start Date End Date Clinic, [facility] [place] PCP - General 05/12/[address] [place] [address] documented as of this encounter
--- OUTSIDE RECORDS SUMMARY | 2022-06-20 08:51 | XMS_ITS | Encounter Summary ---
:1940 Author Organization [place] Address [address] [place] [address] Care Team Providers Name Role Phone Clinic, [facility] Primary Care Provider [phone] Reason for Visit Reason Onset Date Comments Clinic Care Coordination - Follow-up 11/15/2019 Encounter Details Date Type Department Care Team Description 11/15/2019 Telephone [facility] Ramiro Loco Cli [facility] V[facility] Clinic Félix juarez MD Coordination - [address] Follow-up [address] [place] [address] [place] [id number] (Wo rk) Social History Tobacco Use Types [...] 11/29/2019 9:12 AM CST Order entered. SHASTA Wnikler, RN-[facility] GATION EQUIPMENT INSTALLER Telephone Encounter - Ro Taylor RN - 11/25/2019 2:34 PM CST Pt called back, left vm to discuss lab request (creat/gfr). I called pt back, pt reports [facility]24[facility]19 [facility] GFR 55 [facility]. I explained to pt he does not need another lab draw and we will work with these lab results. Pt notes understanding. Routing to Dr. Loco's nurse Leatha for placement of imaging order (to be done in 6 months) per Dr[address] Loco's request. SHASTA Sotomayor, JOSE [facility] GATION EQUIPMENT INSTALLER Telephone Encounter - Ro Taylor RN - 11/25/2019 1:49 PM CST Pt called back , left vm to discuss labs ordered by Dr. Loco. SHASTA Sotomayor, JOSE [facility] GATION EQUIPMENT INSTALLER Telephone Encounter - Ro Taylor RN - 11/15/2019 2:41 PM CST Creatinine check/lab order placed in [facility]. I called pt, left vm explaining he can get this checked at his convenience, upon results we will then order his follow up imaging and OV per Dr. Loco and to call if any questions. SHASTA Sotomayor, RN [facility] [place] GATION EQUIPMENT INSTALLER Telephone Encounter - Ro Taylor RN - [...] Sotomayor, RN [facility] GATION EQUIPMENT INSTALLER documented in this encounter Plan of Treatment [...] documented as of this encounter Care Teams Transportation Mechanic Relationship Specialty Start Date End Date [facility] PCP - General 05/12/[address] [place] [address] documented as of this encounter
--- OUTSIDE RECORDS SUMMARY | 2022-06-20 08:51 | XMS_ITS | Encounter Summary ---
:1940 Author Organization [place] Address [address] [facility] [place] [address] Care Team Providers Name Role Phone Clinic, [facility] Primary Care Provider [phone] Reason for Visit Reason Onset Date Comments Clinic Care Coordination - Initial 05/17/2019 CT sc an Encounter Details Date Type Department Care Team Description 05/17/2019 Telephone [facility] Butch Brown Clinic Car e Coordination Vascular Clinic Félix Jay MD - Initial (CT scan) [address] [place] [address] [place] [address] Social History Tobacco Use Types Packs/Day Years [...] documented as of this encounter Care Teams Cement Sprayer Helper Relationship Specialty Start Date End Date [facility] PCP - General 05/12/[address] [place] [id number] documented as of this encounter
--- OUTSIDE RECORDS SUMMARY | 2022-06-20 08:51 | XMS_ITS | Encounter Summary ---
:1940 Author Organization [place] Address [address] [place] [address]. [place] [address] Care Team Providers Name Role Phone [facility], [facility] Primary Care Provider [phone] Encounter Details Date Type Department Care Team Description 11/12/2018 Telephone [facility] Vascular Butch Brown MD Clinic [place] [address] [address] [place] [address] [place] [id number] (Wo rk) Social History Tobacco Use Types [...] that f/u with Dr. Brown. Aruna Simmons, Inspector Glass Or Mirror ER DEVELOPMENT MANAGER documented in this encounter Plan of Treatment Not on filedocumented as of this encounter Visit Diagnoses Not on filedocumented in this encounter Additional Health Concerns Infection Onset Date Last Indicated Resolved Time MRSAComment: Positive 02/17/11 and 09/22/12 11/05/2018 019 Negatives 05/03/14 (HE), 12/01/14 (HE) documented as of this encounter Care Teams Lens Examiner Relationship Specialty Start Date End Date [facility], [facility] PCP - General 05/12/[address] [place] [address] documented as of this encounter
--- OUTSIDE RECORDS SUMMARY | 2022-06-20 08:51 | XMS_ITS | Encounter Summary ---
:1940 Author Organization [place] Address [facility] [place] [address] Care Team Providers Name Role Phone Clinic, [facility] Primary Care Provider [phone] Reason for Visit Reason Comments RECHECK 6 month follow up visit. 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); Surgery Clinic Ramiro Loco MD [address] [place] [id number] CKD (chronic kidney disease) stage 3, GF R 30-59 ml/min (H) [place] [address] [address] [facility] [address] [place] [address] Social History Tobacco Use Types [...] Comments Blood Pressure 128/76 11/09/2019 1:19 PM MINING TECHNICIAN Pulse 59 11/09/2019 1:19 PM MINING TECHNICIAN Temperature - - Respiratory Rate 16 11/09/2019 1:19 PM MINING TECHNICIAN Oxygen Saturation 98% 11/09/2019 1:19 PM MINING TECHNICIAN Inhaled Oxygen Concentration - - Weight 82.6 kg (182 lb) 11/09/2019 1:19 PM MINING TECHNICIAN Height 167.6 cm (5' 6) 11/09/2019 1:19 PM MINING TECHNICIAN Body Mass Index 29.38 11/09/2019 1:19 PM MINING TECHNICIAN documented in this encounter Progress Notes Ramiro [...] Hendricks spent the last several months in [place]. Dr. Brown has left our practice. Mr. Hendricks presents to my vascular surgical office today to review a noncontrasted CT scan of the chest, abdomen, and pelvis and to once again discuss possible EVAR. He was accompanied by his daughter. He did have a fall while vacationing in [place] with multiple resultant rib fractures. Apart from [...] repair. I would absolutely refer him to [facility] to discuss those surgical options. Presently repair [...] in complete agreement with our plan. Total [id number] time was 40 minutes, greater than 50% spent providing counseling and education. David Loco MD NG TECHNICIAN documented in this encounter Plan of [...] documented as of this encounter Care Teams Pumping Station Engineer Relationship Specialty Start Date End Date [facility] PCP - General 05/12/[address] [place] [address] documented as of this encounter
--- OUTSIDE RECORDS SUMMARY | 2022-06-20 08:51 | XMS_ITS | Encounter Summary ---
:1940 Author Organization [place] Address [address] [place] [address] Care Team Providers Name Role Phone [facility], [facility] Primary Care Provider [phone] Encounter Details Date Type Department Care Team [...] documented as of this encounter Care Teams Drying Can Worker Relationship Specialty Start Date End Date [facility], [facility] PCP - General 05/12/[address] [place] [address] documented as of this encounter
--- OUTSIDE RECORDS SUMMARY | 2022-06-20 08:51 | XMS_ITS | Encounter Summary ---
:1940 Author Organization [place] Address [facility] [place] [address] Care Team Providers Name Role Phone Clinic, [facility] Primary Care Provider [phone] Reason for Referral Diagnostic Imaging CT Scan - Closed Specialty Diagnoses / Procedures Referred By Contact Refer red To Contact Radiology. Diagnoses Thoracic aortic aneurysm (H) Juan Lewis MD Ct Scan Procedures CTA Chest Abdomen Pelvis w Contrast [address] [place] [address] [place] [address] Referral ID Status Reason Start Date Expiration Date Visits Requ ested Visits Authorized [id number] Closed 11/12/2018 11/12/2019 1 1 NO INVESTIGATOR Reason for Visit Diagnostic Imaging CT Scan - Closed Specialty Diagnoses / Procedures Referred By Contact Refer red To Contact Radiology. Diagnoses Thoracic aortic aneurysm (H) Juan Lewis MD Ct Scan Procedures CTA Chest Abdomen Pelvis w Contrast [address] [place] [address] [place] [address] Referral ID Status Reason Start Date Expiration Date Visits Requ ested Visits Authorized [id number] Closed 11/12/2018 11/12/2019 1 1 Encounter Details Date Type Department Care Team Description 11/26/2018 [facility] Non-Fv Credentialed Pro vider, Lab Thoracic aortic Encounter [facility] Butch Brown MD [address] [place] [address] aneurysm (H) [address] [place] [address] Social [...] R esults for this PELVIS W CONTRAST CASINO INVESTIGATOR aneurysm (H) procedure are in the results section. documented in this encounter Results CTA Chest Abdomen Pelvis w Contrast (11/26/2018 9:03 AM CASINO INVESTIGATOR) Anatomical Region Laterality Modality Lower Extremity, SUBRAD IR PROCEDURE, UMP CT CTA, RAD Computed Tomography CT Specimen (Source) Anatomical Location Collection Method / Collectio n Time Received Time / Laterality Volume Impressions 11/26/2018 4:44 PM CASINO INVESTIGATOR IMPRESSION: 1. New thoracic aortic endograft. Tandem areas of aneurysmal dilatation are relatively unchanged in s ize. No visible endoleak. Recommend annual surveillance. 2. Infrarenal abdominal aortic aneurysm measuring 4.6 x 4.6 cm, unchanged. 3. Somewhat irregular fluid collection i n left groin, likely postoperative seroma. Surrounding enlarg ed lymph nodes. TANNER STARKS MD Narrative 11/26/2018 4:44 PM CASINO INVESTIGATOR CTA CHEST, ABDOMEN AND PELVIS WITH CONTRAST [...] (ISOVUE-370) solution 80 Given 11/26/2018 8:30 AM CASINO INVESTIGATOR 80 mLs mL 80 mL, Intravenous, ONCE, On Thu11/26/18 at 0830, For 1 dose Saline Flush Given 11/26/2018 8:30 AM CASINO INVESTIGATOR 80 mLs Intravenous, 80 mL, ONCE, On [...] as of this encounter Care Teams Retail Cosmetics Sales Beauty Advisor Relationship Specialty Start Date End Date [facility] PCP - General 05/12/[address] [place] [address] documented as of this encounter
--- OUTSIDE RECORDS SUMMARY | 2022-06-20 08:51 | XMS_ITS | Encounter Summary ---
:1940 Author Organization [place] Address [address] [facility] [place] [address] Care Team Providers Name Role Phone [facility] Primary Care Provider [phone] Reason for Referral Diagnostic Imaging CT Scan - Closed Specialty Diagnoses / Procedures Referred By Contact Refer red To Contact Radiology. Diagnoses Thoracic aortic aneurysm (H) Juan Lewis MD Ct Scan Procedures CTA Chest Abdomen Pelvis w Contrast [address] [place] [address] [place] [address] Referral ID Status Reason Start Date Expiration Date Visits Requ ested Visits Authorized [id number] Closed 11/12/2018 11/12/2019 1 1 WORKER Encounter Details Date Type Department Care Team Description 11/12/2018 [facility] Only [facility] Juan Lewis Thoracic aortic Vascular Clinic Félix Nava MD aneurysm (H) (Primary [address] Dx ) [address] [place] [address] [place] [id number] Social History Tobacco Use Types Packs/Day Years [...] Abdomen Pelvis w Contrast (11/26/2018 9:03 AM ADZ WORKER) Anatomical Region Laterality Modality Lower Extremity, SUBRAD IR PROCEDURE, UMP CT CTA, RAD Computed Tomography CT Specimen (Source) Anatomical Location Collection Method / Collectio n Time Received Time / Laterality Volume Impressions 11/26/2018 4:44 PM ADZ WORKER IMPRESSION: 1. New thoracic aortic endograft. Tandem areas of aneurysmal dilatation are relatively unchanged in s ize. No visible endoleak. Recommend annual surveillance. 2. Infrarenal abdominal aortic aneurysm measuring 4.6 x 4.6 cm, unchanged. 3. Somewhat irregular fluid collection i n left groin, likely postoperative seroma. Surrounding enlarg ed lymph nodes. TANNER STARKS MD Narrative 11/26/2018 4:44 PM ADZ WORKER CTA CHEST, ABDOMEN AND PELVIS WITH CONTRAST [...] documented as of this encounter Care Teams Olive Grader Relationship Specialty Start Date End Date [facility] [facility], [facility] PCP - General 05/12/17 [address] [place] [address] documented as of this encounter
--- OUTSIDE RECORDS SUMMARY | 2022-06-20 08:51 | XMS_ITS | Encounter Summary ---
:1940 Author Organization [place] Address [address] [place] [address] Care Team Providers Name Role Phone [facility], [facility] Primary Care Provider [phone] Encounter Details Date Type Department Care Team [...] as of this encounter Care Teams Manager Local Relationship Specialty Start Date End Date [facility], [facility] PCP - General 05/12/[address] [place] [address] documented as of this encounter
--- OUTSIDE RECORDS SUMMARY | 2022-06-20 08:51 | XMS_ITS | Encounter Summary ---
:1940 Author Organization [place] Address [address] [place] [address] Care Team Providers Name Role Phone Clinic, [facility] Primary Care Provider [phone] Encounter Details Date Type Department Care Team Description 12/08/2019 Orders Only [facility] Tho racic aortic aneurysm [facility] without rupture (H) [address] [place] [address] Social History Tobacco Use [...] AM Thoracic aortic Resul ts for this MANAGER OF CHANGE aneurysm without procedure a re in the rupture (H) results section . documented in this encounter Results (ABNORMAL) Creatinine (12/08/2019 10:59 AM MANAGER OF CHANGE) Analysis Performed At Patho logist Time Signature Creatinine 1.36 (H) 0.66 - 12/09/2019 [place] 1.25 mg/dL 9:03 AM [facility] GFR Estimate 50 (L) >60 12/09/2019 [place] mL/min/{1. 9:03 AM [facility] 73_m2} [facility] Comment: Non GFR Calc Starting 10/05/2018, serum creatinine ba sed estimated GFR (eGFR) will be calculated using the Chronic Kidney Dise [facility] Epidemiology Collaboration (CKD-EPI) equation. GFR Estimate If 58 (L) >60 mL/min/{1.73_m2} 12/09/2019 9:03 AM [facility]3] Black [facility] Comment: GFR Calc Starting 10/05/2018, serum creatinine ba sed estimated GFR (eGFR) will be calculated using the Chronic Kidney Dise [facility] Epidemiology Collaboration (CKD-EPI) equation. Specimen Anatomical Collection Method Collection Time Receive d Time (Source) Location / / Volume Laterality Blood specimen 12/08/2019 10:59 0 (specimen) AM MANAGER OF CHANGE 11:04 AM MANAGER OF CHANGE Ramiro Loco MD LAB - BLOOD ORDERABLES Performing Organization Address City/State/ZIP Code Phon e Number [facility] [address] [place] [address] documented in this encounter Visit Diagnoses Diagnosis Thoracic aortic aneurysm without rupture (H) Thoracic aneurysm without mention of rup ture documented in this encounter Additional Health Concerns Infection Onset Date Last Indicated Resolved Time MRSAComment: Positive 02/17/11 and 09/22/12 11/05/2018 019 Negatives 05/03/14 (HE), 12/01/14 (HE) documented as of this encounter Care Teams Student Nurse Relationship Specialty Start Date End Date [facility] Portillo PCP - General 05/12/17 [address] [place] [address] documented as of this encounter
--- OUTSIDE RECORDS SUMMARY | 2022-06-20 08:51 | XMS_ITS | Encounter Summary ---
:1940 Author Organization [facility] Address [address] [place] [address] Care Team Providers Name Role Phone Clinic, [facility] Primary Care Provider [phone] Reason for Visit Reason Onset Date Comments Path Results 06/02/2019 Encounter Details Date Type Department Care Team Description 06/02/2019 [facility] Jon White, Path Results [phone] [place] [address] [phone] (Wo rk) Social History Tobacco Use Types [...] : MOHS Surgery with Dr. Jon White, Cyber Security to remove skin cancers. Thank you for allowing me to be involved in your health care and for choosing [facility]. If you have any questions or concerns please feel free to contact me at . Sincerely, Dr. Fernando White Telephone Encounter - Mallory Montgomery RN - 06/22/2019 9:06 AM CDT Called and LM for patient to call back in regards to scheduling x3 mohs appointments. ERMA LockwoodLaxmi [facility] [phone] Telephone Encounter - Mallory Montgomery RN - 06/17/2019 11:11 AM CDT Called and LM for patient to call back in regards to scheduling x3 mohs appointments. LENA Lockwood [facility] [phone] Telephone Encounter - Mallory Montgomery RN - 06/14/2019 10:15 AM CDT Called and LM for patient to call back in regards to scheduling x3 mohs appointments. LENA Lockwood [facility] [phone] Telephone Encounter - Mallory Montgomery RN - 06/13/2019 1:05 PM CDT Called and LM for patient to call back in regards to scheduling x3 mohs appointments. LENA Lockwood [facility] [phone] Telephone Encounter - Mallory Montgomery RN - 06/06/2019 4:22 PM CDT Called and spoke to patient. Educated patient on biopsy results- BCC x3. Educated patient on BCC andmohs. Patient stated his is currently in the hospital so he cannot schedule any appointments atthis time. Patient asked that I call him early next week. Patient voiced understanding. LENA Lockwood [facility] [phone] Telephone Encounter - Ryan Grady - 06/06/2019 3:44 PM CDT Please call patient on cell at [phone]. Telephone Encounter - Mallory Montgomery RN - 06/06/2019 8:40 AM CDT Called and LM for patient to call back in regards to biopsy results x3. LENA Lockwood [facility] [phone] Telephone Encounter - Mallory Montgomery RN - 06/03/2019 3:44 PM CDT Called and LM for patient to call back in regards to biopsy results x3. LENA Lockwood [facility] [phone] Telephone Encounter - Mallory Montgomery RN - [...] documented as of this encounter Care Teams Inspector Poising Relationship Specialty Start Date End Date [facility], [facility] PCP - General 05/12/[address] [place] [address] documented as of this encounter
--- OUTSIDE RECORDS SUMMARY | 2022-06-20 08:51 | XMS_ITS | Encounter Summary ---
:1940 Author Organization [place] Address [address] [facility] [place] [address] Care Team Providers Name Role Phone Clinic, [facility] Primary Care Provider [phone] Encounter Details Date Type Department Care Team Description 11/15/2019 Orders Only [facility] Ramiro Loco Thoracic aortic Vascular Clinic Félix Garcia MD aneurysm without [address] rupt ure (H) (Primary [address] Dx) [place] [address] [place] [address]75[address] Social History Tobacco Use Types Packs/Day Years [...] encounter Results (ABNORMAL) Creatinine (12/08/2019 10:59 AM INFORMATICA ARCHITECT) Analysis Performed At Patho logist Time Signature Creatinine 1.36 (H) 0.66 - 12/09/2019 [place] 1.25 mg/dL 9:03 AM [facility] GFR Estimate 50 (L) >60 12/09/2019 [place] mL/min/{1. 9:03 AM [facility] 73_m2} [facility] Comment: Non GFR Calc Starting 10/05/2018, serum creatinine ba sed estimated GFR (eGFR) will be calculated using the Chronic Kidney Dise ase Epidemiology Collaboration (CKD-EPI) equation. GFR Estimate If 58 (L) >60 mL/min/{1.73_m2} 12/09/2019 9:03 AM [facility] Black [facility] Comment: GFR Calc Starting 10/05/2018, serum creatinine ba sed estimated GFR (eGFR) will be calculated using the Chronic Kidney Dise [facility] Epidemiology Collaboration (CKD-EPI) equation. Specimen Anatomical Collection Method Collection Time Receive d Time (Source) Location / / Volume Laterality Blood specimen 12/08/2019 10:59 0 (specimen) AM INFORMATICA ARCHITECT 11:04 AM INFORMATICA ARCHITECT Ramiro Loco MD LAB - BLOOD ORDERABLES Performing Organization Address City/State/ZIP Code Phon e Number [facility] [address] [place] [address] documented in this encounter Visit Diagnoses Diagnosis Thoracic aortic aneurysm without rupture (H) - Primary Thoracic aneurysm without mention of rup ture documented in this encounter Additional Health Concerns Infection Onset Date Last Indicated Resolved Time MRSAComment: Positive 02/17/11 and 09/22/12 11/05/2018 019 Negatives 05/03/14 (HE), 12/01/14 (HE) documented as of this encounter Care Teams Customer Logistics Manager Relationship Specialty Start Date End Date Kehinde Portillo PCP - General 05/12/[address] [place] [address] documented as of this encounter
--- OUTSIDE RECORDS SUMMARY | 2022-06-20 08:51 | XMS_ITS | Encounter Summary ---
:1940 Author Organization [facility] Address [address] [place] [address] Care Team Providers Name Role Phone Clinic, [facility] Primary Care Provider [phone] Reason for Visit Reason Comments RECHECK 1st PO; THORACIC ENDOVASCULA R ANEURYSM REPAIR WITH MEDTRONIC GRAFT Encounter Details Date Type Department Care Team Description 11/26/2018 Office Visit [facility] Butch Brown Thoracic a ortic Vascular Clinic Félix Jay MD aneurysm without [address] ru pture (H) (Primary [address] Dx) [place] [phone] [place] [id number] Social History Tobacco Use Types Packs/Day Years [...] Comments Blood Pressure 146/70 11/26/2018 10:47 AM CNC WOOD LATHE OPERATOR Pulse 66 11/26/2018 10:47 AM CNC WOOD LATHE OPERATOR Temperature - - Respiratory Rate - - Oxygen Saturation - - Inhaled Oxygen Concentration - - Weight 87.5 kg (193 lb) 11/26/2018 10:47 AM CNC WOOD LATHE OPERATOR Height 167.6 cm (5' 6) 11/26/2018 10:47 AM CNC WOOD LATHE OPERATOR Body Mass Index 31.15 11/26/2018 10:47 AM CNC WOOD LATHE OPERATOR documented in this encounter Patient Instructions Patient InstructionsVon Landeros CMA - 11/26/2018 11:00 AM CNC WOOD LATHE OPERATOR Patient to follow up with Primary Care provider regarding elevated blood pressure. WOOD LATHE OPERATOR documented in this encounter Progress Notes Von [...] kg). Pain Score: Data Unavailable Von Landeros WOOD LATHE OPERATOR Butch Brown MD - 11/26/2018 11:00 AM [...] 5.0-5.5 cm. Butch Brown MD Vascular Surgery WOOD LATHE OPERATOR documented in this encounter Plan of [...] documented as of this encounter Care Teams Patient Support Associate Relationship Specialty Start Date End Date [facility], [facility] PCP - General 05/12/[address] [place], [place] [id number] documented as of this encounter
--- OUTSIDE RECORDS SUMMARY | 2022-06-20 08:51 | XMS_ITS | Encounter Summary ---
:1940 Author Organization [place] Address [address] [place] [address] Care Team Providers Name Role Phone [facility], [facility] Primary Care Provider [phone] Encounter Details Date Type Department Care Team [...] documented as of this encounter Care Teams Facing Grinder Relationship Specialty Start Date End Date [facility], [facility] PCP - General 05/12/[address] [place] [address] documented as of this encounter
--- OUTSIDE RECORDS SUMMARY | 2022-06-20 08:51 | XMS_ITS | Encounter Summary ---
:1940 Author Organization [place] Address [address] [facility] [place] [address] Care Team Providers Name Role Phone Clinic, [facility] Primary Care Provider [phone] Reason for Visit Reason Comments RECHECK History of thoracic aortic a neurysm without rupture; 6 month follow up to 11-26-[address] Brown Encounter Details Date Type Department Care Team Description 05/17/2019 Office Visit [facility] Butch Brown Abdominal aortic aneurysm (AAA) without rupture (H) (Primary Dx); Vascular Clinic Félix Jay MD Thoracic aortic aneurysm without rupture (H) [address] [place] [address] [place] [id number] Social History Tobacco Use Types Packs/Day Years [...] previously covered. I spent 15 minutes of spve-ix-oyaz time, > 50% spent counseling and coordinating [...] documented as of this encounter Care Teams Survey Methodologist Relationship Specialty Start Date End Date [facility] PCP - General 05/12/17 [address] [place] [address] documented as of this encounter
--- OUTSIDE RECORDS SUMMARY | 2022-06-20 08:51 | XMS_ITS | Encounter Summary ---
:1940 Author Organization [facility] Address [facility] [place] [address] Care Team Providers Name Role Phone Clinic, [facility] Primary Care Provider [phone] Reason for Referral Diagnostic Imaging CT Scan (Routine) - Closed Specialty Diagnoses / Procedures Referred By Contact Refer red To Contact Radiology. 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 (H) Butch Brown MD Ct Scan [facility] Procedures CT Chest Abdomen Pelvis w/o Contrast [address] [place] [address] [place] [address] [address] Phone: Fax: Referral ID Status Reason Start Date Expiration Date Visits Requ ested Visits Authorized [id number] Closed 05/17/2019 05/16/2020 1 1 RGLASS FINISHER Reason for Visit Diagnostic Imaging CT Scan (Routine) - Closed Specialty Diagnoses / Procedures Referred By Contact Refer red To Contact Radiology. 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 (H) Butch Brown MD Ct Scan [facility] Procedures CT Chest Abdomen Pelvis w/o Contrast [address] [place] [address] [place] [address] [address] Phone: Fax: Referral ID Status Reason Start Date Expiration Date Visits Requ ested Visits Authorized [id number] Closed 05/17/2019 05/16/2020 1 1 Encounter Details Date Type Department Care Team Description 11/09/2019 Hospital Encounter [facility] Butch Brown aortic [facility] MD Pierre aneurysm (AAA) [address] with out rupture (H) [address] [place] [address] Social History Tobacco Use Types Packs/Day [...] aortic Results for this PELVIS W/O CONTRAST FIBERGLASS FINISHER aneurysm (AAA) proced ure are in without rupture (H) the resu lts section. documented in this encounter Results CT Chest Abdomen Pelvis w/o Contrast (11/09/2019 11:25 AM FIBERGLASS FINISHER) Anatomical Region Laterality Modality Abdomen/Pelvis, SUBRAD CT BODY, UMP CT CHEST, UMP CT Computed Tomography ABDOMEN PELVIS, Chest, RAD CT Specimen (Source) Anatomical Location Collection Method / Collectio n Time Received Time / Laterality Volume Impressions 11/09/2019 3:17 PM FIBERGLASS FINISHER IMPRESSION: 1. 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 2. The aneurysm sac in the distal thorac ic aorta and an infrarenal abdominal aortic aneurysm have increased slightly in size since the previous exam. 3. Moderate age-indeterminate anterior c ompression of the T7 vertebral body is new since the previous exam. JON NICHOLS MD Narrative 11/09/2019 3:[address] CHEST, ABDOMEN AND PELVIS WITHOUT CONTRAST [...] documented as of this encounter Care Teams Electronics Assembler And Tester Relationship Specialty Start Date End Date [facility], [facility] PCP - General 05/12/[address] [place], [place] [id number] documented as of this encounter
--- OUTSIDE RECORDS SUMMARY | 2022-06-20 08:51 | XMS_ITS | Encounter Summary ---
:1940 Author Organization [facility] Address [address] [place] [address] Care Team Providers Name Role Phone [facility], [facility] Primary Care Provider Encounter Details Date [...] documented as of this encounter Care Teams Human Factors Scientist Relationship Specialty Start Date End Date [facility], [facility] PCP - General 05/12/[address] [place] [address] documented as of this encounter
--- OUTSIDE RECORDS SUMMARY | 2022-06-20 08:51 | XMS_ITS | Encounter Summary ---
:1940 Author Organization [facility] Address [address] [place] [address] Care Team Providers Name Role Phone Clinic, [facility] Primary Care Provider [phone] Reason for Visit Reason Comments Skin Check FSE Encounter Details Date Type Department Care Team Description 06/02/2019 Office Visit [facility] Jon White of skin cancer (Primary Dx); Clinic Morganza MD Aubrey Lentigo; [place] [address] Seborrheic keratosis; [address] [address] Angioma of skin; [place], [place] [phone] Dermal nevus ; [address] (Work) Basal cell carcinoma (BCC) of anterior c hest; [phone] Basal wilotn l carcinoma (BCC) of sideburn area; Basal [...] CDT Wound Care Instructions FOR SUPERFICIAL WOUNDS [facility] [phone] [facility] [phone] AFTER 24 HOURS YOU SHOULD REMOVE THE [...] file Gets together: Not on file Attends sabianist service: Not on file Active member of club or organization: Not on file Attends meetings of clubs or organizations: Not on file Relationship status: Not on file ??? Intimate partner violence: Fear of current or ex partner: Not on file Emotionally abused: Not on file Physically abused: Not on file Forced sexual activity: Not on file Other Topics Concern ??? Parent/sibling w/ CABG, CO or angioplasty before 65F 55M? Not Asked [...] 87.5 kg (193 lb). . JOSE Lockwood-BSN-N [facility] [phone] documented in this encounter Plan of Treatment [...] documented as of this encounter Care Teams Cook Mayonnaise Relationship Specialty Start Date End Date Clinic, [facility] PCP - General 05/12/[address] [place] [address] documented as of this encounter
--- OUTSIDE RECORDS SUMMARY | 2022-06-20 08:51 | XMS_ITS | Encounter Summary ---
:1940 Author Organization [facility] Address [address] [facility] [place] [address] Care Team Providers Name Role Phone [facility], [facility] Primary Care Provider [phone] Reason for Referral Diagnostic Imaging CT Scan (Routine) - Closed Specialty Diagnoses / Procedures Referred By Contact Refer red To Contact Radiology. 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 (H) Butch Brown MD Rh Ct Scan [facility] Procedures CT Chest Abdomen Pelvis w/o Contrast [address] [place] [address] [place] [address] [place] [address] Phone: Fax: Referral ID Status Reason Start Date Expiration Date Visits Requ ested Visits Authorized [id number] Closed 05/17/2019 05/16/2020 1 1 Encounter Details Date Type Department Care Team Description 05/17/2019 Orders Only [facility] Butch Brown Abdominal aortic Vascular Clinic Félix Jay MD aneurysm (AAA) without [address] ru pture (H) (Primary [address] Dx) [place] [address] [place] [address] [phone] Social History Tobacco Use Types Packs/Day Years [...] Abdomen Pelvis w/o Contrast (11/09/2019 11:25 AM INVESTMENT BANKING MANAGER) Anatomical Region Laterality Modality Abdomen/Pelvis, SUBRAD CT BODY, UMP CT CHEST, UMP CT Computed Tomography ABDOMEN PELVIS, Chest, RAD CT Specimen (Source) Anatomical Location Collection Method / Collectio n Time Received Time / Laterality Volume Impressions 11/09/2019 3:17 PM INVESTMENT BANKING MANAGER IMPRESSION: 1. 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 2. The aneurysm sac in the distal thorac ic aorta and an infrarenal abdominal aortic aneurysm have increased slightly in size since the previous exam. 3. Moderate age-indeterminate anterior c ompression of the T7 vertebral body is new since the previous exam. JON NICHOLS MD Narrative 11/09/2019 3:17 [address] IN[address]MENT BANKING MANAGER CT CHEST, ABDOMEN AND PELVIS WITHOUT CONTRAST [...] documented as of this encounter Care Teams Family Dinner Service Specialist Relationship Specialty Start Date End Date [facility], [facility] PCP - General 05/12/[address] [place] [address] documented as of this encounter
--- OUTSIDE RECORDS SUMMARY | 2022-06-20 08:51 | XMS_ITS | Encounter Summary ---
:1940 Author Organization [place] Address [address] [place] [address] Care Team Providers Name Role Phone [facility], [facility] Primary Care Provider [phone] Encounter Details Date Type Department Care Team [...] documented as of this encounter Care Teams Beer Runner Relationship Specialty Start Date End Date [facility], [facility] PCP - General 05/12/[address] [place] [address] documented as of this encounter
--- OUTSIDE RECORDS SUMMARY | 2022-06-20 08:51 | XMS_ITS | Encounter Summary ---
:1940 Author Organization [place] Address [address] [place] [address]. [place] [address] Care Team Providers Name Role Phone Clinic, [facility] Primary Care Provider [phone] Reason for Visit Reason Onset Date Comments Appointment 05/28/2020 Encounter Details Date Type Department Care Team Description 05/28/2020 Telephone [facility] Vascular Ramiro Loco MD Appointment Clinic [place] [address] [place] [address] [place] [address] [phone] Social History Tobacco Use Types Packs/Day Years [...] 04/26/2020 and 05/28/2020 reminding patient to call [facility] & schedule an appointment per follow-up orders by Dr. Loco. These orders were expected to be completed by April,. No further attempts will be made to contact patient for scheduling per these follow-up orders. Carolyn Jerome Warehouse Picker [facility] Office: [phone] documented in this encounter Plan of Treatment Not on filedocumented as of this encounter Visit Diagnoses Not on filedocumented in this encounter Additional Health Concerns Infection Onset Date Last Indicated Resolved Time MRSAComment: Positive 02/17/11 and 09/22/12 11/05/2018 019 Negatives 05/03/14 (HE), 12/01/14 (HE) documented as of this encounter Care Teams Nutrition Helper Relationship Specialty Start Date End Date [facility] PCP - General 05/12/[address] [place] [address] documented as of this encounter
--- OUTSIDE RECORDS SUMMARY | 2022-06-20 08:51 | XMS_ITS | Encounter Summary ---
:1940 Author Organization [place] Address [facility] [place] [address] Care Team Providers Name Role Phone Clinic, [facility] Primary Care Provider [phone] Encounter Details Date Type Department Care Team Description 11/26/2018 [facility] Butch Brown Thoracic a ortic Vascular Clinic Félix Jay MD aneurysm (H) (Primary [address] Dx ) [address] [place] [address] [place] [address] Social History Tobacco Use Types Packs/Day Years [...] documented as of this encounter Care Teams Perishable Fruit Inspector Relationship Specialty Start Date End Date [facility], [facility] PCP - General 05/12/[address] [place] [address] documented as of this encounter
--- OUTSIDE RECORDS SUMMARY | 2022-06-20 08:51 | XMS_ITS | Encounter Summary ---
:1940 Author Organization [facility] Address [address] [place] [address] Care Team Providers Name Role Phone Clinic, [facility] Primary Care Provider [phone] Reason for Visit Reason Onset Date Comments Forms 06/30/2019 Encounter Details Date Type Department Care Team Description 06/30/2019 Telephone [facility] Jon White, Forms [address] [place] [address] [phone] (Wo rk) Social History Tobacco Use Types [...] back and records faxed to them at [phone].Desire De Oliveira RN Telephone Encounter - Mallory Montgomery RN - 06/30/2019 1:04 PM CDT Flor over at [facility] called requesting patient records from his [...] frustrated by the situation. Faxed form to [facility]. Flor voiced understanding. JOSE Lockwood-BSN-N [facility] [phone] documented in this encounter Plan of Treatment Not on filedocumented as of this encounter Visit Diagnoses Not on filedocumented in this encounter Additional Health Concerns Infection Onset Date Last Indicated Resolved Time MRSAComment: Positive 02/17/11 and 09/22/12 11/05/2018 019 Negatives 05/03/14 (HE), 12/01/14 (HE) documented as of this encounter Care Teams Biscuit Maker Relationship Specialty Start Date End Date [facility], [facility] PCP - General 05/12/[address] [place] [address] documented as of this encounter
--- OUTSIDE RECORDS SUMMARY | 2022-06-20 08:51 | XMS_ITS | Encounter Summary ---
:1940 Author Organization [place] Address [facility] [place] [address] Care Team Providers Name Role Phone Clinic, [facility] Primary Care Provider [phone] Reason for Visit Diagnostic Imaging CT Scan (Routine) - Closed Specialty Diagnoses / Procedures Referred By Contact Refer red To Contact Diagnoses Thoracic aortic aneurysm without rupture (H) Abdominal aortic aneurysm (AAA) without rupture (H) Ramiro Loco MD Procedures CT Chest Abdomen Pelvis w/o Contrast CTA Chest Abdomen Pelvis w Contrast [address] [place] [address] Referral ID Status Reason Start Date Expiration Date Visits Requ ested Visits Authorized [id number] Closed 11/29/2019 11/28/2020 1 1 Encounter Details Date Type Department Care Team Description 08/08/2021 Hospital Encounter [facility] Ramiro Loco oracic aortic aneurysm without rupture (H); [facility] Gisela Garcia MD Abdominal aortic aneurysm (AAA) without rupture (H) [address] [place] [address] [address] [place] [address] [phone] Social History Tobacco Use Types Packs/Day Years [...] CT CHEST ABDOMEN PELVIS W/O CONTRAST LOCATION: [facility] DATE/TIME: 08/08/2021 4:20 PM INDICATION: history of [...] CHEST ABDOMEN PELVIS W/O CONTRA ST LOCATION: [facility] DATE/TIME: 08/08/2021 4:20 PM INDICATION: history of [...] City/State/ZIP Code Phon [place] [phone] Care Lab [address] [...] documented as of this encounter Care Teams Road Supervisor Relationship Specialty Start Date End Date Kehinde Portillofield PCP - General 05/12/[address] [place] [address] documented as of this encounter
--- OUTSIDE RECORDS SUMMARY | 2022-06-20 08:52 | XMS_ITS | Encounter Summary ---
:1940 Author Organization [facility] Address [address] [place] [id number] Care Team Providers Name Role Phone [facility], [facility] Primary Care Provider Encounter Details [...] documented as of this encounter Care Teams [employer] Relationship Specialty Start Date End Date [facility], [facility] PCP - General 05/12/[address] [place] [id number] documented as of this encounter
--- OUTSIDE RECORDS SUMMARY | 2022-06-20 08:52 | XMS_ITS | Encounter Summary ---
:1940 Author Organization [place] Address [facility] [place] [address] Care Team Providers Name Role Phone Clinic, [facility] Primary Care Provider [phone] Reason for Referral Therapeutic Imaging/IR - Closed Specialty Diagnoses / Procedures Referred By Contact Refer red To Contact Diagnoses Descending thoracic aortic aneurysm (H) Juna Lewis MD Procedures IR Thoracic Endovascular Stent Graft [address] [place] [address] Referral ID Status Reason Start Date Expiration Date Visits Requ ested Visits Authorized [id number] Closed 10/28/2018 10/28/2019 1 1 HAND Reason for Visit Auth/Cert Specialty Diagnoses / Procedures Referred By Contact Refer red To Contact Surgery Diagnoses DESCENDING THORACIC AORTIC ANEURYSM Sh Periop Services Procedures ENDOVASCULAR REPAIR ANEURYSM THORACIC AORTIC [address] [place] [address] Phone: Referral ID Status Reason Start Date Expiration Date Visits Requ ested Visits Authorized [id number] 1 1 Encounter Details Date Type Department Care Team Description 11/05/2018 - Hospital Encounter [facility] Elizabeth Lewis MD [address] [place] [id number] Thoracic aortic aneurysm without rupture (H) (Primary Dx); 11/09/2018 Gallito Sommers MD [address] [place] [id number] Descending thoracic aortic aneurysm (H) Intermediate Care Butch Brown MD [address] [place] [id number] [address] [phone] Social History Tobacco [...] Comments Blood Pressure 158/88 11/09/2018 8:28 AM JOB HAND Pulse 100 11/09/2018 5:00 AM JOB HAND Temperature 36.6 ??C (97.9 ??F) 11/09/2018 7:31 AM JOB HAND Respiratory Rate 22 11/09/2018 8:00 AM JOB HAND Oxygen Saturation 93% 11/09/2018 5:00 AM JOB HAND Inhaled Oxygen Concentration - - Weight 87.3 kg (192 lb 7.4 oz) 11/09/2018 6:39 AM JOB HAND Height 167.6 cm (5' 6) 11/05/2018 6:27 AM JOB HAND Body Mass Index 31.06 11/05/2018 6:27 AM JOB HAND documented in this encounter Discharge Summaries Bessy Mccray MD - 11/09/2018 10:56 AM CST Physician Discharge Summary Patient ID: Speedy Hendricks [id number] 78 year old 1940 Admit date: 11/05/2018 [...] an oral diet. He was discharged to [facility] on POD#4 in stable condition. Consults: [...] to. Signed: Bessy Mccray 11/09/2018 10:56 AM HAND Associated attestation - Juan Lewis MD - 11/11/2018 3:10 PM JOB HAND Physician Attestation I, Juan Lewis, have reviewed [...] Traylor RN - 11/09/2018 11:47 AM CST HAND AttachmentsThe following attachments cannot be sent through Care Everywhere.(S) TREATING A THORACIC AORTIC ANEURYSM (TAA): ENDOVASCULAR GRAFT (LAO) documented in this encounter Medications at Time [...] home with family via car.All questions answered. HAND Gurwinder Godoy MD - 11/09/2018 12:02 PM CST [facility] Vascular Medicine Progress Note Date of Service (when I saw the patient): 11/09/2018 Physician Supervisory Attestation: I have reviewed and discussed with the physician assistant professor of religion their history, physical and plan and independently [...] vascular surgery service. Gurwinder Godoy MD,[facility] Vascular Medicine service 11/09/2018 Assessment & [...] Rate: 93 Resp: 22 SpO2: 93 % P8Tzydid: None (Room air) Vitals: 11/06/18 0211 11/07/18 [...] = values in this interval not displayed. HAND Bessy Mccray MD - 11/09/2018 7:36 AM [...] Bessy Martinez MD Vascular Surgery Fellow Pager HAND Associated attestation - Butch Brown MD - 11/16/2018 9:50 AM JOB HAND I was involved with the assessment and plan, and I agree with the findings and plan of care as documented in the fellow's note. MD Wilfredo Castillo Carley, JOSE - 11/08/2018 6:35 PM CST Pt arrived to station 33 @ 1820 HAND Aura Crooks RN - 11/08/2018 5:05 PM CST Pt had drained removed this AM. Draining moderate amount- MDA aware. SR. BP wnl- gave hydralazine x1prn. Chapman to be removed prior to transfer. Lines out and hemostasis achieved. Up to chair- tolerated well, SBA. Frequent neuros- wnl. Will call report to [facility] and will transfer at p. HAND Dimas Chapman MD - 11/08/2018 12:41 PM CST [facility] Vascular Medicine Progress Note Date of [...] -- AST 19 -- -- -- -- HAND Bessy Mccray MD - 11/08/2018 8:18 AM [...] Bessy Martinez MD Vascular Surgery Fellow Pager HAND Associated attestation - Butch Brown MD - 11/16/2018 3:00 PM JOB HAND I was involved with the assessment and [...] please contact primary service first. Kaleb Rodriguez HAND Kristy Castañeda RN - 11/08/2018 6:50 AM [...] any neuro changes. ?? Zakia Tobin MD. HAND Bart Feliciano MD - 11/07/2018 3:39 PM [...] drain tubing following unclamping[place]ts [place] [address] down from 100s yesterday. At this time, [...] with any neuro changes. Bart Feliciano MD. HAND Christina Burrell MD - 11/07/2018 3:03 PM [...] Christina Burrell MD Vascular Surgery Fellow Pgr HAND Bishop Tran MD - 11/07/2018 11:55 AM CST Production Cell Leader: S: Mild groin pain this morning, but [...] Dr. Staley of vascular medicine at bedside. Production Cell Leader service will sign off for now. Please re-consult as needed. HAND Gurwinder Godoy MD - 11/07/2018 9:09 AM CST [facility] Vascular Medicine Progress Note Date of [...] If any change in neuro status contact [facility] surgery first and consider neurocritical care [...] good Reviewed last night events, discussed with Production Cell Leader and ICU nursing staff this am. Patients [...] nephrotoxic meds. ?? Gurwinder Godoy MD,[facility] Vascular Medicine Interval History Reviewed last [...] 7.8* 8.6 -- GLC 115* 121* -- HAND Danette Peck RN - 11/07/2018 8:50 AM [...] to keep SBP <160 and MAP >80. HAND Gurwinder Godoy MD - 11/06/2018 12:00 PM CST [facility] Vascular Medicine Progress Note Date of [...] nephrotoxic meds. ?? Gurwinder Godoy MD,[facility] Vascular Medicine Interval History Reviewed last [...] 7.8* 8.6 -- GLC 115* 121* -- HAND Millie Handley APRN SAMPLER OVENS - 11/06/2018 11:55 AM CST Critical Care [...] Total critical care time today 35 min. HAND Associated attestation - Bishop Tran MD - 11/12/2018 10:50 AM JOB HAND Physician Attestation I, Bishop Tran, have reviewed [...] sufficient urine. Continue plan as documented in BASIN CLEANER note. The patient does not seem to [...] for the 11/05/2018 admission is complete. See [facility] admission navigator for prior to admission medications Medication history source reliability:Good Medication history interview source(s):Patient Medication history resources (including written lists, pill bottles, clinic record):Patient mailed in his medication list prior to surgery Primary pharmacy.[place] Additional medication history information not noted on LOG DECK TENDER med list :None Time spent in [...] Bedtime 11/04/2018 at 2200 Yes Reported, Patient HAND documented in this encounter Procedure Notes Missael [...] management per anethesia/vasc surg Missael Garcia MD [phone] HAND documented in this encounter Consult Notes Kaleb Rodriguez NP - 11/05/2018 5:14 PM CSTAssociated Order(s): TEA PLANTATION WORKER IP CONSULT [facility] Consult Critical Care Service Date of [...] IR Lumbar Drain Placement w Fluoro Narrative [facility] INTERVENTIONAL NEURORADIOLOGY PROCEDURAL NOTE FLUOROSCOPICALLY GUIDED [...] CPT codes included for physician reference only: 32542/32871 MISSAEL GARCIA MD Glucose by meter Result Value Ref Range Glucose 124 (H) 70 - 99 mg/dL HAND Associated attestation - Olive Bello MD - 11/05/2018 10:58 PM JOB HAND ICU STAFF: I have discussed Mr. Hendricks's [...] management per vascular surgery. Olive Bello MD #[id number] 11/05/18 Bill as Advanced Practice Provider only. Gurwinder Godoy MD - 11/05/2018 1:40 PM CST [facility] Vascular Medicine Consultation Date of Admission: 11/05/2018 Date of Consult (When I saw the patient): 11/05/18 Physician Supervisory Attestation: I have reviewed and discussed with the physician assistant professor of religion their history, physical and plan and independently [...] to Dr. Debbie Godoy MD ,[facility] Vascular Medicine 11/05/2018 Assessment & Plan [...] Labs Lab Test 11/05/18 0655 A1C 5.2 HAND documented in this encounter Nursing Notes Isis Rivera RN - 11/05/2018 8:40 AM CST Noted swelling left ankle HAND documented in this encounter Miscellaneous Notes Plan [...] sites soft, bruised, CMS intact. Voiding okay. HAND Plan of Care - Misty Villalobos RN - 11/08/2018 7:10 PM CST A/O x4. AVSS on RA. Tele NSR. Hydralazine given x1. Up SBA. Neuros intact. CMS intact. Groin sites, steri strips. Back site, moist drainage. Pulses, palpable, +2. Regular diet. Chapman removed at 1740, Due to void. HAND Provider Notification - Aura Crooks RN - 11/08/2018 11:37 AM CST MD NOTIFICATION Person Notified: MDA Notified Person's Name: Yeimi Notification Date/Time: 11/08/2017 1135 Notification Interaction: Paged physician Purpose of Notification: Pt remains to have drainage from lumbar drain site. Orders Received: MDA to come assess pt. HAND Plan of Care - Kristy Castañeda RN [...] access readiness for lumbar drain removal today. HAND Provider Notification - Kristy Castañeda RN - [...] assess pulling the drain. Kristy Castañeda RN HAND Plan of Care - Aura Crooks RN - 11/07/2018 6:17 PM CST Neuro: LUCAS- strength 5/5. PERRL. Complains of soreness in groin/hips from moving them too much. Ptup in chair for a hour and tolerated well. Ok'd with Anesthesia MD, [place], to get up in chair forno more [...] some blood in tubing- Anesthesia MD aware. HAND Plan of Care - Danette Peck RN - 11/07/2018 1:12 PM CST [id number] Continued with numbness bilateral top of thighs. [...] and dtr in room when Drs here. HAND Provider Notification - Ramiro Lozano RN - 11/07/2018 6:17 AM CST Paged vascular surgery fellow Ashanti regarding new numbness to anterior thighs. CSF has been drained, will begin 500ml bolus unless directed otherwise. HAND Plan of Care - Ramiro Lozano RN [...] clamped now. Daughter Raquel updated this morning. HAND Provider Notification - Ramiro Lozano RN - 11/07/2018 5:[address] Wang regarding new leg pain and ICP increase. Opening drain for 15ml CSF over 1 hr per order. HAND Plan of Care - Danette Peck RN - 11/06/2018 4:34 PM CST [id number] Neuro checks remain intact. Able to move [...] be retested for MRSA per infection control. HAND Plan of Care - Ramiro Lozano RN [...] this shift. Daughter Raquel updated this morning. HAND Plan of Care - Danette Peck RN - 11/05/2018 9:43 PM CST [id number] Neuro: intact. Able to move hips slightly [...] by physicians. Care transferred to next nurse. HAND Provider Notification - Ramiro Lozano RN - 11/05/2018 7:46 PM CST Notified sash sticker regarding failure to meet MAP goal of 80, new orders received. HAND Op Note - Butch Brown MD - [...] descending aortic angiogram SURGEON: Butch Brown MD TECHNICAL SALES SUPPORT MANAGER: Kannan Morse MD; Bessy Mas MD - [...] then able to upsized to a 6 Estonian sheath over a Bentson wire.The patient was [...] femoral artery and upsized to an 11 Estonian sheath. We then able to insert JULIANE [...] was removed and backfilled with a 16 Estonian dry seal on the left.At this point [...] superficial femoral artery access which was 6 Estonian sheath with an Angio-Seal closure device performed [...] the drain. Butch Brown MD Vascular Surgery HAND Brief Op Note - Bessy Mccray MD - 11/05/2018 12:29 PM CST [facility] Brief Operative Note Pre-operative diagnosis: DESCENDING [...] Palp DP bilaterally Complications: None. Implants: None. HAND Associated attestation - Butch Brown MD - 11/05/2018 1:09 PM JOB HAND Butch Brown MD IR Note - Gwen Rivas RN - 11/05/2018 10:27 AM CST Interventional Radiology Intra-procedural Nursing Note Patient Name: Speedy Hendricks Today's Date: November 05, 2018 Start Time: 0850 End of procedure time: 904 Procedure: lumbar drain placement Report given to: Dr. See, anesthesia Time pt departs: 919 Software Developer Manager: n/a Other Notes: patient tolerated well. Drain connected to closed drainage system flushed with preservative free NS per Dr. Haro. 1mg Versed and 50mcg Fentanyl IV given for additional sedation (had received 4mg Versed and 100mcg Fentanyl in pre-op prior to arrival). SR on monitor .VSS. Patient taken back to pre-op bay in stable condition. Gwen Rivas RNglass technologist Radiology HAND documented in this encounter Plan of Treatment Not on filedocumented as of this encounter Procedures Procedure Name Priority Date/Time Associated Comments Diagnosis CBC WITH PLATELETS & Routine 11/09/2018 7:41 AM Descending tho racic Results for this DIFFERENTIAL JOB HAND aortic aneurysm (H) procedur e are in the results section. COMPREHENSIVE Routine 11/09/2018 7:41 AM Descending thoracic R esults for this METABOLIC PANEL JOB HAND aortic aneurysm (H) proce dure are in the results section. MAGNESIUM Routine 11/08/2018 3:40 AM Descending thoracic Re sults for this JOB HAND aortic aneurysm (H) procedur e are in the results section. COMPREHENSIVE Routine 11/08/2018 3:40 AM Descending thoracic R esults for this METABOLIC PANEL JOB HAND aortic aneurysm (H) proce dure are in the results section. CBC WITH PLATELETS Routine 11/08/2018 3:40 AM Descending thora cic Results for this JOB HAND aortic aneurysm (H) procedur e are in the results section. CBC WITH PLATELETS STAT 11/07/2018 3:00 PM Descending thora cic Results for this JOB HAND aortic aneurysm (H) procedur e are in the results section. CBC WITH PLATELETS & Timed 11/07/2018 9:50 AM Descending tho racic Results for this DIFFERENTIAL JOB HAND aortic aneurysm (H) procedur e are in the results section. MAGNESIUM Routine 11/07/2018 9:50 AM Descending thoracic Re sults for this JOB HAND aortic aneurysm (H) procedur e are in the results section. BASIC METABOLIC PANEL Timed 11/07/2018 9:50 AM Descending th oracic Results for this JOB HAND aortic aneurysm (H) procedur e are in the results section. GLUCOSE BY METER Routine 11/07/2018 7:44 AM Descending thoraci c Results for this JOB HAND aortic aneurysm (H) procedur e are in the results section. GLUCOSE BY METER Routine 11/07/2018 3:49 AM Descending thoraci c Results for this JOB HAND aortic aneurysm (H) procedur e are in the results section. GLUCOSE BY METER Routine 11/07/2018 12:08 Descending thoracic Results for this AM JOB HAND aortic aneurysm (H) procedur e are in the results section. GLUCOSE BY METER Routine 11/06/2018 7:53 PM Descending thoraci c Results for this JOB HAND aortic aneurysm (H) procedur e are in the results section. GLUCOSE BY METER Routine 11/06/2018 11:02 Descending thoracic Results for this AM JOB HAND aortic aneurysm (H) procedur e are in the results section. GLUCOSE BY METER Routine 11/06/2018 7:38 AM Descending thoraci c Results for this JOB HAND aortic aneurysm (H) procedur e are in the results section. LACTIC ACID WHOLE Routine 11/06/2018 4:15 AM Descending thorac ic Results for this BLOOD JOB HAND aortic aneurysm (H) procedur e are in the results section. BASIC METABOLIC PANEL Routine 11/06/2018 4:15 AM Descending th oracic Results for this JOB HAND aortic aneurysm (H) procedur e are in the results section. CBC WITH PLATELETS Routine 11/06/2018 4:15 AM Descending thora cic Results for this JOB HAND aortic aneurysm (H) procedur e are in the results section. GLUCOSE BY METER Routine 11/06/2018 1:12 AM Descending thoraci c Results for this JOB HAND aortic aneurysm (H) procedur e are in the results section. MRSA MSSA PCR, NASAL STAT 11/05/2018 11:41 Descending thora cic Results for this SWAB PM JOB HAND aortic aneurysm (H) procedur e are in the results section. GLUCOSE BY METER Routine 11/05/2018 8:16 PM Descending thoraci c Results for this JOB HAND aortic aneurysm (H) procedur e are in the results section. GLUCOSE BY METER Routine 11/05/2018 4:39 PM Descending thoraci c Results for this JOB HAND aortic aneurysm (H) procedur e are in the results section. INR STAT 11/05/2018 4:35 PM Descending thoracic Re sults for this JOB HAND aortic aneurysm (H) procedur e are in the results section. LACTIC ACID WHOLE STAT 11/05/2018 4:35 PM Descending thorac ic Results for this BLOOD JOB HAND aortic aneurysm (H) procedur e are in the results section. BASIC METABOLIC PANEL STAT 11/05/2018 4:35 PM Descending th oracic Results for this JOB HAND aortic aneurysm (H) procedur e are in the results section. CBC WITH PLATELETS STAT 11/05/2018 4:35 PM Descending thora cic Results for this JOB HAND aortic aneurysm (H) procedur e are in the results section. IR THORACIC Routine 11/05/2018 12:09 Descending thoracic Resu lts for this ENDOVASCULAR STENT PM JOB HAND aortic aneurysm (H) pr ocedure are in GRAFT the results section. REPAIR, ANEURYSM, 11/05/2018 9:35 AM DESCENDING THORAC IC THORACIC AORTIC, JOB HAND AORTIC ANEURYSM ENDOVASCULAR Special Needs BLOOD TRANSFUSION ISSUE (RAR E ANTIBODIES) PT WILL DO A TYPE AND CROSS ON 11/03 JALEEL 10/28 IR LUMBAR DRAIN Routine 11/05/2018 9:10 AM Result s for this PLACEMENT W FLUORO JOB HAND procedure are in the results section. EKG 12-LEAD, TRACING STAT 11/05/2018 6:58 AM R esults for this ONLY JOB HAND procedure are i n the results section. POTASSIUM STAT 11/05/2018 6:55 AM Descending thoracic Re sults for this JOB HAND aortic aneurysm (H) procedur e are in the results section. LIPID PROFILE STAT 11/05/2018 6:55 AM Descending thoracic R esults for this JOB HAND aortic aneurysm (H) procedur e are in the results section. HEMOGLOBIN A1C STAT 11/05/2018 6:55 AM Descending thoracic Results for this JOB HAND aortic aneurysm (H) procedur e are in the results section. CREATININE STAT 11/05/2018 6:55 AM Descending thoracic Re sults for this JOB HAND aortic aneurysm (H) procedur e are in the results section. XR CHEST PORT 1 VIEW STAT 11/05/2018 6:40 AM R esults for this JOB HAND procedure are i n the results section. EKG CARDIAC - HIM 09/24/2018 12:00 AM SCAN JOB HAND documented in this encounter Results (ABNORMAL) CBC with platelets differential (11/09/2018 7:41 AM [facility]) Component Value Ref Test Analysis Performed At [facility] Range Method Time Signature WBC 9.3 4.0 - 11/09/2018 [facility] 11.0 8:06 AM [place] [id number] RBC Count 3.55 (L) 4.4 - 11/09/2018 [facility] 5.9 8:06 AM [place] [id number] Hemoglobin 11.3 (L) 13.3 - 11/09/2018 [facility] 17.7 8:06 AM [facility] Hematocrit 33.7 (L) 40.0 - 11/09/2018 [facility] 53.0 % 8:06 AM [facility] MCV 95 78 - 100 11/09/2018 [facility] fl 8:06 AM [facility] MCH 31.8 26.5 - 11/09/2018 [facility] 33.0 pg 8:06 AM [facility] MCHC 33.5 31.5 - 11/09/2018 [facility] 36.5 8:06 AM [facility] RDW 13.9 10.0 - 11/09/2018 [facility] 15.0 % 8:06 AM [facility] Platelet Count 83 (L) 150 - 11/09/2018 [facility] 450 8:[address] Diff Method Manual 11/09/2018 [facility] Differential 8:31 AM [facility] % Neutrophils 85.0 % 11/09/2018 [facility] 8:31 AM [facility] % Lymphocytes 6.0 % 11/09/2018 [facility] 8:31 AM [facility] % Monocytes 7.0 % 11/09/2018 [facility] 8:31 AM [facility] % Eosinophils 2.0 % 11/09/2018 [facility] 8:31 AM [facility] % Basophils 0.0 % 11/09/2018 [facility] 8:31 AM [facility] Absolute 7.9 1.6 - 11/09/2018 [facility] Neutrophil 8.3 8:[address] Absolute 0.6 (L) 0.8 - 11/09/2018 [facility] Lymphocytes 5.3 8:[address] Absolute 0.7 0.0 - 11/09/2018 [facility] Monocytes 1.3 8:[address] Absolute 0.2 0.0 - 11/09/2018 [facility] Eosinophils 0.7 8:[address] Absolute 0.0 0.0 - 11/09/2018 [facility] Basophils 0.2 8:[address] RBC Morphology Consistent with 11/09/2018 [facility] reported results 8:31 AM [facility] Platelet Automated count 11/09/2018 [facility] Estimate confirmed. 8:31 AM [facility] HOSPITAL morphology is normal. Specimen Anatomical Collection Method Collection Time Receive d Time (Source) Location / / Volume Laterality Blood specimen 11/09/2018 7:41 AM 019 7:51 (specimen) JOB HAND AM JOB HAND Dimas Chapman MD LAB - BLOOD ORDERABLES Performing Organization Address City/State/ZIP Code Phon e Number M [facility] [address] [phone] [facility] [address] [address], [facility] [phone] (ABNORMAL) Comprehensive metabolic panel (11/09/2018 7:41 AM [facility]) P athologist Signature Sodium 144 133 - 144 11/09/2018 [place] mmol/L 8:11 AM [facility] Potassium 4.0 3.4 - 5.3 11/09/2018 [place] mmol/L 8:11 AM [facility] Chloride 113 (H) 94 - 109 11/09/2018 [place] mmol/L 8:11 AM [facility] Carbon Dioxide 22 20 - 32 11/09/2018 [place] mmol/L 8:17 AM [facility] Anion Gap 9 3 - 14 11/09/2018 [place] mmol/L 8:17 AM [facility] Glucose 94 70 - 99 11/09/2018 [place] mg/dL 8:17 AM [facility] Urea Nitrogen 21 7 - 30 11/09/2018 [place] mg/dL 8:17 AM [facility] Creatinine 1.24 0.66 - 11/09/2018 [place] 1.25 mg/dL 8:17 AM [facility] GFR Estimate 56 (L) >60 11/09/2018 [place] mL/min/{1. 8:17 AM [facility] 73_m2} HOSPITAL Comment: Non GFR Calc Starting 10/05/2018, serum creatinine ba sed estimated GFR (eGFR) will be calculated using the Chronic Kidney Dise [facility] Epidemiology Collaboration (CKD-EPI) equation. GFR Estimate If 65 >60 mL/min/{1.73_m2} 11/09/2018 8: 17 AM [facility] Comment: GFR Calc Starting 10/05/2018, serum creatinine ba sed estimated GFR (eGFR) will be calculated using the Chronic Kidney Dise [facility] Epidemiology Collaboration (CKD-EPI) equation. Calcium 8.4 (L) 8.5 - 10.1 11/09/2018 8:17 AM [facility] mg/dL [facility] Bilirubin Total 1.3 0.2 - 1.3 mg/dL 11/09/2018 8:19 AM [facility] Albumin 2.4 (L) 3.4 - 5.0 g/dL 11/09/2018 8:19 AM [facility] Protein Total 6.2 (L) 6.8 - 8.8 g/dL 11/09/2018 8:19 AM [facility] Alkaline Phosphatase 72 40 - 150 U/L 11/09/2018 8:19 AM [facility] ALT 17 0 - 70 U/L 11/09/2018 8:19 AM [facility] AST 15 0 - 45 U/L 11/09/2018 8:19 AM [facility] Specimen Anatomical Collection Method Collection Time Receive d Time (Source) Location / / Volume Laterality Blood specimen 11/09/2018 7:41 AM 019 7:51 (specimen) JOB HAND AM [facility] Dimas Chapman MD LAB - BLOOD ORDERABLES Performing Organization Address City/State/ZIP Code Phon e Number M [facility] [address] [address] [phone] [facility] [address] [place] [address], [place] [phone] Magnesium Level scheduled every Thu Wed Thu (11/08/2018 3:40 AM JOB HAND) P athologist Signature Magnesium 1.7 1.6 - 2.3 11/08/2018 [facility] mg/dL 4:06 AM [facility] Specimen Anatomical Collection Method Collection Time Receive d Time (Source) Location / / Volume Laterality Blood specimen 11/08/2018 3:40 AM 019 3:46 (specimen) JOB HAND AM JOB HAND Dimas Chapman MD LAB - BLOOD ORDERABLES Performing Organization Address City/State/ZIP Code Phon e Number M [facility] [address] [place] [address] [phone] [facility] [address] [place] [address], [place] [phone] (ABNORMAL) Comprehensive metabolic panel (11/08/2018 3:40 AM JOB HAND) Analysis Performed At Patho logist Time Signature Sodium 142 133 - 144 11/08/2018 [facility] mmol/L 3:58 AM [facility] Potassium 4.2 3.4 - 5.3 11/08/2018 [facility] mmol/L 3:58 AM [facility] Chloride 111 (H) 94 - 109 11/08/2018 [facility] mmol/L 3:58 AM [facility] Carbon Dioxide 22 20 - 32 11/08/2018 [facility] mmol/L 4:04 AM [facility] Anion Gap 9 3 - 14 11/08/2018 [facility] mmol/L 4:04 AM [facility] Glucose 164 (H) 70 - 99 11/08/2018 [facility] mg/dL 4:04 AM [facility] Urea Nitrogen 20 7 - 30 11/08/2018 [facility] mg/dL 4:04 AM [facility] Creatinine 1.29 (H) 0.66 - 11/08/2018 [facility] 1.25 mg/dL 4:04 AM [facility] GFR Estimate 53 (L) >60 11/08/2018 [facility] mL/min/{1. 4:04 AM [facility] 73_m2} HOSPITAL Comment: Non GFR Calc Starting 10/05/2018, serum creatinine ba sed estimated GFR (eGFR) will be calculated using the Chronic Kidney Dise [facility] Epidemiology Collaboration (CKD-EPI) equation. GFR Estimate If 62 >60 mL/min/{1.73_m2} 11/08/2018 4: 04 AM [facility] Comment: GFR Calc Starting 10/05/2018, serum creatinine ba sed estimated GFR (eGFR) will be calculated using the Chronic Kidney Dise [facility] Epidemiology Collaboration (CKD-EPI) equation. Calcium 8.2 (L) 8.5 - 10.1 11/08/2018 4:04 AM [facility] mg/dL [facility] Bilirubin Total 1.1 0.2 - 1.3 mg/dL 11/08/2018 4:06 AM [facility] Albumin 2.6 (L) 3.4 - 5.0 g/dL 11/08/2018 4:06 AM [facility] Protein Total 6.0 (L) 6.8 - 8.8 g/dL 11/08/2018 4:06 AM [facility] Alkaline Phosphatase 62 40 - 150 U/L 11/08/2018 4:06 AM [facility] ALT 18 0 - 70 U/L 11/08/2018 4:06 AM [facility] AST 19 0 - 45 U/L 11/08/2018 4:06 AM [facility] Specimen Anatomical Collection Method Collection Time Receive d Time (Source) Location / / Volume Laterality Blood specimen 11/08/2018 3:40 AM 019 3:46 (specimen) JOB HAND AM JOB HAND Gurwinder Godoy MD LAB - BLOOD ORDERABLES Performing Organization Address City/State/ZIP Code Phon e Number M [facility] [address] [address] [facility] [address] [address], U [phone] (ABNORMAL) CBC (AM Draw) (11/08/2018 3:40 AM JOB HAND) Analysis Performed At Patho logist Time Signature WBC 11.2 (H) 4.0 - 11.0 11/08/2018 [facility] 10e9/L 3:50 AM [facility] RBC Count 3.62 (L) 4.4 - 5.9 11/08/2018 [facility] 10e12/L 3:50 AM [facility] Hemoglobin 11.6 (L) 13.3 - 11/08/2018 [facility] 17.7 g/dL 3:50 AM [facility] Hematocrit 34.5 (L) 40.0 - 11/08/2018 [facility] 53.0 % 3:50 AM [facility] MCV 95 78 - 100 11/08/2018 [facility] fl 3:50 AM [facility] MCH 32.0 26.5 - 11/08/2018 [facility] 33.0 pg 3:50 AM [facility] MCHC 33.6 31.5 - 11/08/2018 [facility] 36.5 g/dL 3:50 AM [facility] RDW 13.9 10.0 - 11/08/2018 [facility] 15.0 % 3:50 AM [facility] Platelet Count 82 (L) 150 - 450 11/08/2018 [facility] 10e9/L 3:50 AM [facility] Specimen Anatomical Collection Method Collection Time Receive d Time (Source) Location / / Volume Laterality Blood specimen 11/08/2018 3:40 AM 019 3:46 (specimen) JOB HAND AM JOB HAND Gurwinder Godoy MD LAB - BLOOD ORDERABLES Performing Organization Address City/State/ZIP Code Phon e Number [facility] [address] [address] [phone] [facility] [address] [address], [place] [phone] (ABNORMAL) CBC with platelets (11/07/2018 3:00 PM JOB HAND) Analysis Performed At Patho logist Time Signature WBC 11.1 (H) 4.0 - 11.0 11/07/2018 [facility] 10e9/L 3:08 PM [facility] RBC Count 3.74 (L) 4.4 - 5.9 11/07/2018 [facility] 10e12/L 3:08 PM [facility] Hemoglobin 11.9 (L) 13.3 - 11/07/2018 [facility] 17.7 g/dL 3:08 PM [facility] Hematocrit 35.4 (L) 40.0 - 11/07/2018 [facility] 53.0 % 3:08 PM [facility] MCV 95 78 - 100 11/07/2018 [facility] fl 3:08 PM [facility] MCH 31.8 26.5 - 11/07/2018 [facility] 33.0 pg 3:08 PM [facility] MCHC 33.6 31.5 - 11/07/2018 [facility] 36.5 g/dL 3:08 PM [facility] RDW 14.1 10.0 - 11/07/2018 [facility] 15.0 % 3:08 PM [facility] Platelet Count 87 (L) 150 - 450 11/07/2018 [facility] 10e9/L 3:08 PM [facility] Specimen Anatomical Collection Method Collection Time Receive d Time (Source) Location / / Volume Laterality Blood specimen 11/07/2018 3:00 PM 019 3:05 (specimen) JOB HAND PM JOB HAND Bart Feliciano MD LAB - BLOOD ORDERABLES Performing Organization Address City/State/ZIP Code Phon e Number [facility] [address] [address] [place] [id number] [address], [facility] [phone] Magnesium (11/07/2018 9:50 AM JOB HAND) P athologist Signature Magnesium 1.6 1.6 - 2.3 11/07/2018 [facility] mg/dL 11:12 AM [facility] Specimen Anatomical Collection Method Collection Time Receive d Time (Source) Location / / Volume Laterality 11/07/2018 9:50 AM 9 JOB HAND 10:04 AM JOB HAND Gurwinder Godoy MD LAB - BLOOD ORDERABLES Performing Organization Address City/State/ZIP Code Phon e Number [facility] [address] [address] [place] [address] [place] [address], [place] [phone] (ABNORMAL) CBC with platelets differential (11/07/2018 9:50 AM [facility]) [facility] Method Time Signature WBC 10.4 4.0 - 11/07/2018 [facility] 11.0 10:13 AM [facility] 10e9/L [facility] RBC Count 3.63 (L) 4.4 - 5.9 11/07/2018 [facility] 10e12/L 10:13 AM [facility] Hemoglobin 11.5 (L) 13.3 - 11/07/2018 [facility] 17.7 g/dL 10:13 AM [facility] Hematocrit 34.3 (L) 40.0 - 11/07/2018 [facility] 53.0 % 10:13 AM [facility] MCV 95 78 - 100 11/07/2018 [facility] fl 10:13 AM [facility] MCH 31.7 26.5 - 11/07/2018 [facility] 33.0 pg 10:13 AM [facility] MCHC 33.5 31.5 - 11/07/2018 [facility] 36.5 g/dL 10:13 AM [facility] RDW 14.0 10.0 - 11/07/2018 [facility] 15.0 % 10:13 AM [facility] Platelet Count 82 (L) 150 - 450 11/07/2018 [facility] 10e9/L 10:37 AM [facility] Diff Method Automated 11/07/2018 [facility] Method 10:37 AM [facility] % Neutrophils 78.8 % 11/07/2018 [facility] 10:37 AM [facility] % Lymphocytes 6.2 % 11/07/2018 [facility] 10:37 AM [facility] % Monocytes 14.7 % 11/07/2018 [facility] 10:37 AM [facility] % Eosinophils 0.2 % 11/07/2018 [facility] 10:37 AM [facility] % Basophils 0.0 % 11/07/2018 [facility] 10:37 AM [facility] % Immature 0.1 % 11/07/2018 [facility] Granulocytes 10:37 AM [facility] Nucleated RBCs 0 0 /100 11/07/2018 [facility] 10:37 AM [facility] Absolute 8.2 1.6 - 8.3 11/07/2018 [facility] Neutrophil 10e9/L 10:37 AM [facility] Absolute 0.6 (L) 0.8 - 5.3 11/07/2018 [facility] Lymphocytes 10e9/L 10:37 AM [facility] Absolute 1.5 (H) 0.0 - 1.3 11/07/2018 [facility] Monocytes 10e9/L 10:37 AM [facility] Absolute 0.0 0.0 - 0.7 11/07/2018 [facility] Eosinophils 10e9/L 10:37 AM [facility] Absolute 0.0 0.0 - 0.2 11/07/2018 [facility] Basophils 10e9/L 10:37 AM [facility] Abs Immature 0.0 0 - 0.4 11/07/2018 [facility] Granulocytes 10e9/L 10:37 AM [facility] Absolute 0.0 11/07/2018 [facility] Nucleated RBC 10:37 AM [facility] Ovalocytes Slight 11/07/2018 [facility] 10:37 AM [facility] Platelet Automated 11/07/2018 [facility] Estimate count 10:37 AM [facility] confirmed. [facility] Platelet morphology is normal. Specimen Anatomical Collection Method Collection Time Receive d Time (Source) Location / / Volume Laterality Blood specimen 11/07/2018 9:50 AM 019 (specimen) JOB HAND 10:04 AM JOB HAND Gurwinder Godoy MD LAB - BLOOD ORDERABLES Performing Organization Address City/State/ZIP Code Phon e Number [facility] [address] [address] [facility] [address] [place] [address], [place] [phone] (ABNORMAL) Basic metabolic panel (11/07/2018 9:50 AM JOB HAND) Analysis Performed At Patho logist Time Signature Sodium 147 (H) 133 - 144 11/07/2018 [facility] mmol/L 10:16 AM [facility] Potassium 4.1 3.4 - 5.3 11/07/2018 [facility] mmol/L 10:16 AM [facility] Chloride 117 (H) 94 - 109 11/07/2018 [facility] mmol/L 10:16 AM [facility] Carbon Dioxide 20 20 - 32 11/07/2018 [facility] mmol/L 10:23 AM [facility] Anion Gap 10 3 - 14 11/07/2018 [facility] mmol/L 10:23 AM [facility] Glucose 108 (H) 70 - 99 11/07/2018 [facility] mg/dL 10:23 AM [facility] Urea Nitrogen 23 7 - 30 11/07/2018 [facility] mg/dL 10:23 AM [facility] Creatinine 1.47 (H) 0.66 - 11/07/2018 [facility] 1.25 mg/dL 10:23 AM [facility] GFR Estimate 46 (L) >60 11/07/2018 [facility] mL/min/{1. 10:23 AM [facility] 73_m2} HOSPITAL Comment: Non GFR Calc Starting 10/05/2018, serum creatinine ba sed estimated GFR (eGFR) will be calculated using the Chronic Kidney Dise [facility] Epidemiology Collaboration (CKD-EPI) equation. GFR Estimate If 53 (L) >60 mL/min/{1.73_m2} 11/07/2018 10 :23 AM [facility] Black [facility] Comment: GFR Calc Starting 10/05/2018, serum creatinine ba sed estimated GFR (eGFR) will be calculated using the Chronic Kidney Dise [facility] Epidemiology Collaboration (CKD-EPI) equation. Calcium 8.2 (L) 8.5 - 10.1 mg/dL 11/07/2018 10:23 AM [facility] Specimen Anatomical Collection Method Collection Time Receive d Time (Source) Location / / Volume Laterality Blood specimen 11/07/2018 9:50 AM 019 (specimen) JOB HAND 10:04 AM JOB HAND Gurwinder Godoy MD LAB - BLOOD ORDERABLES Performing Organization Address City/State/ZIP Code Phon e Number [facility] [address] [address] [facility] [address] [address], [place] [phone] (ABNORMAL) Glucose by meter (11/07/2018 7:44 AM JOB HAND) P athologist Signature Glucose 112 (H) 70 - 99 11/07/2018 [facility] mg/dL 7:56 AM JOB HAND TEST, GLUCOSE Specimen Anatomical Collection Method Collection Time Receive d Time (Source) Location / / Volume Laterality 11/07/2018 7:44 AM 9 7:56 JOB HAND AM JOB HAND Juan Lewis MD LAB - BEFOUZIA POCT Performing Organization Address [facility]/ZIP Code Phon e Number [facility] POINT OF CARE TEST, GLUCOSE POINT OF CARE TEST, GLUCOSE (ABNORMAL) Glucose by meter (11/07/2018 3:49 AM JOB HAND) P athologist Signature Glucose 105 (H) 70 - 99 11/07/2018 [facility] mg/dL 4:01 AM JOB HAND TEST, GLUCOSE Specimen Anatomical Collection Method Collection Time Receive d Time (Source) Location / / Volume Laterality 11/07/2018 3:49 AM 9 4:01 JOB HAND AM JOB HAND Juan YUAN - CAROLYN POCT Performing Organization Address City/[facility]/ZIP Code Phon e Number [facility] POINT OF CARE TEST, GLUCOSE POINT OF CARE TEST, GLUCOSE (ABNORMAL) Glucose by meter (11/07/2018 12:08 AM JOB HAND) P athologist Signature Glucose 119 (H) 70 - 99 11/07/2018 [facility] mg/dL 12:19 AM JOB HAND TEST, GLUCOSE Specimen Anatomical Collection Method Collection Time Receive d Time (Source) Location / / Volume Laterality 11/07/2018 12:08 11/07/2018 AM JOB HAND 12:19 AM JOB HAND Juan YUAN - BEFOUZIA POCT Performing Organization Address City/[facility]/ZIP Code Phon e Number [facility] POINT OF CARE TEST, GLUCOSE POINT OF CARE TEST, GLUCOSE (ABNORMAL) Glucose by meter (11/06/2018 7:53 PM JOB HAND) P athologist Signature Glucose 116 (H) 70 - 99 11/06/2018 [facility] mg/dL 8:04 PM JOB HAND TEST, GLUCOSE Specimen Anatomical Collection Method Collection Time Receive d Time (Source) Location / / Volume Laterality 11/06/2018 7:53 PM 9 8:04 JOB HAND PM JOB HAND Juan Elijah Debbie MD LAB - BEAKER POCT Performing Organization Address City/State/ZIP Code Phon e Number [facility] POINT OF CARE TEST, GLUCOSE POINT OF CARE TEST, GLUCOSE (ABNORMAL) Glucose by meter (11/06/2018 11:02 AM JOB HAND) P athologist Signature Glucose 109 (H) 70 - 99 11/06/2018 [facility] mg/dL 11:13 AM JOB HAND TEST, GLUCOSE Specimen Anatomical Collection Method Collection Time Receive d Time (Source) Location / / Volume Laterality 11/06/2018 11:02 11/06/2018 AM JOB HAND 11:13 AM JOB HAND Juan Lewis MD LAB - BEAKER POCT Performing Organization Address City/State/ZIP Code Phon e Number [facility] POINT OF CARE TEST, GLUCOSE POINT OF CARE TEST, GLUCOSE (ABNORMAL) Glucose by meter (11/06/2018 7:38 AM JOB HAND) P athologist Signature Glucose 104 (H) 70 - 99 11/06/2018 [facility] mg/dL 7:50 AM JOB HAND TEST, GLUCOSE Specimen Anatomical Collection Method Collection Time Receive d Time (Source) Location / / Volume Laterality 11/06/2018 7:38 AM 9 7:50 JOB HAND AM JOB HAND Juan YUAN - BEAKER POCT Performing Organization Address City/[facility]/ZIP Code Phon e Number [facility] POINT OF CARE TEST, GLUCOSE POINT OF CARE TEST, GLUCOSE Lactic acid whole blood (11/06/2018 4:15 AM JOB HAND) P athologist Signature Lactic Acid 1.4 0.7 - 2.0 11/06/2018 [facility] mmol/L 4:40 AM JOB HAND [facility] Specimen Anatomical Collection Method Collection Time Receive d Time (Source) Location / / Volume Laterality Blood specimen 11/06/2018 4:15 AM 019 4:25 (specimen) JOB HAND AM JOB HAND Bessy Mccray MD LAB - BLOOD ORDERABLES Performing Organization Address City/[facility]/ZIP Code Phon e Number [facility] [address] [address] [facility] [address] [address], [facility] [phone] (ABNORMAL) Basic metabolic panel (11/06/2018 4:15 AM JOB HAND) Analysis Performed At Patho logist Time Signature Sodium 142 133 - 144 11/06/2018 [facility] mmol/L 4:49 AM [facility] Potassium 4.4 3.4 - 5.3 11/06/2018 [facility] mmol/L 4:49 AM [facility] Chloride 113 (H) 94 - 109 11/06/2018 [facility] mmol/L 4:49 AM [facility] Carbon Dioxide 21 20 - 32 11/06/2018 [facility] mmol/L 4:54 AM [facility] Anion Gap 8 3 - 14 11/06/2018 [facility] mmol/L 4:54 AM [facility] Glucose 115 (H) 70 - 99 11/06/2018 [facility] mg/dL 4:54 AM [facility] Urea Nitrogen 27 7 - 30 11/06/2018 [facility] mg/dL 4:54 AM [facility] Creatinine 1.57 (H) 0.66 - 11/06/2018 [facility] 1.25 mg/dL 4:54 AM [facility] GFR Estimate 42 (L) >60 11/06/2018 [facility] mL/min/{1. 4:54 AM [facility] 73_m2} [facility] Comment: Non GFR Calc Starting 10/05/2018, serum creatinine ba sed estimated GFR (eGFR) will be calculated using the Chronic Kidney Dise [facility] Epidemiology Collaboration (CKD-EPI) equation. GFR Estimate If 49 (L) >60 mL/min/{1.73_m2} 11/06/2018 4: 54 AM [place] Black [facility] Comment: GFR Calc Starting 10/05/2018, serum creatinine ba sed estimated GFR (eGFR) will be calculated using the Chronic Kidney Dise [facility] Epidemiology Collaboration (CKD-EPI) equation. Calcium 7.8 (L) 8.5 - 10.1 mg/dL 11/06/2018 4:54 AM [facility] Specimen Anatomical Collection Method Collection Time Receive d Time (Source) Location / / Volume Laterality Blood specimen 11/06/2018 4:15 AM 019 4:25 (specimen) JOB HAND AM [facility] Bessy Mccray MD LAB - BLOOD ORDERABLES Performing Organization Address City/State/ZIP Code Phon e Number M [facility] [address] [place] [address] [facility] [address] [place] [address], [place] [phone] (ABNORMAL) CBC with platelets (11/06/2018 4:15 AM JOB HAND) Analysis Performed At Patho logist Time Signature WBC 12.9 (H) 4.0 - 11.0 11/06/2018 [facility] 10e9/L 4:45 AM [facility] RBC Count 3.93 (L) 4.4 - 5.9 11/06/2018 [facility] 10e12/L 4:45 AM [facility] Hemoglobin 12.5 (L) 13.3 - 11/06/2018 [facility] 17.7 g/dL 4:45 AM [facility] Hematocrit 36.8 (L) 40.0 - 11/06/2018 [facility] 53.0 % 4:45 AM [facility] MCV 94 78 - 100 11/06/2018 [facility] fl 4:45 AM [facility] MCH 31.8 26.5 - 11/06/2018 [facility] 33.0 pg 4:45 AM [facility] MCHC 34.0 31.5 - 11/06/2018 [facility] 36.5 g/dL 4:45 AM [facility] RDW 13.2 10.0 - 11/06/2018 [facility] 15.0 % 4:45 AM [facility] Platelet Count 153 150 - 450 11/06/2018 [facility] 10e9/L 4:45 AM [facility] Specimen Anatomical Collection Method Collection Time Receive d Time (Source) Location / / Volume Laterality Blood specimen 11/06/2018 4:15 AM 019 4:25 (specimen) JOB HAND AM JOB HAND Bessy Mccray MD LAB - BLOOD ORDERABLES Performing Organization Address City/State/ZIP Code Phon e Number M [facility] [address] [place] [address] [facility] [address] [address], [place] [phone] (ABNORMAL) Glucose by meter (11/06/2018 1:12 AM JOB HAND) P athologist Signature Glucose 126 (H) 70 - 99 11/06/2018 [facility] mg/dL 1:24 AM JOB HAND TEST, GLUCOSE Specimen Anatomical Collection Method Collection Time Receive d Time (Source) Location / / Volume Laterality 11/06/2018 1:12 AM 9 1:24 JOB HAND AM JOB HAND Juan Lewis MD LAB - BEAKER POCT Performing Organization Address City/State/ZIP [facility] Phon e Number [facility] POINT OF CARE TEST, GLUCOSE POINT OF CARE TEST, GLUCOSE Methicillin Resist/Sens S. aureus PCR (11/05/2018 11:41 PM JOB HAND) [facility] gist Method Time Signature Specimen Nares 11/05/2018 [place] Description 11:45 PM JOB HAND [facility] Methicillin Negative NEG^Negat 11/06/2018 [facility] Resist/Sens S. shin 2:36 AM [facility] MEDICAL aureus PCR [facility] Comment: MRSA Negative: SA Negative ??MRSA and St aphylococcus aureus target DNA not detected, presumed negative for MRSA and SA colonization or the number of bacteria present may be below the limit of detection for the assay. FDA approved assay performed using [employer] eneXpert(R) real-time PCR. Specimen (Source) Anatomical Collection Method Collection Time Re ceived Time Location / / Volume Laterality Nasal structure 11/05/2018 11:41 11/06/19 19 (body structure) PM JOB HAND Bessy Mccray MD LAB - MICRO GENERAL ORDERABL ES Performing Organization Address City/[facility] Code Phon e Number [facility] [address] [place] [address] [facility] [address] [place] [address], [place] [phone] (ABNORMAL) Glucose by meter (11/05/2018 8:16 PM JOB HAND) P athologist Signature Glucose 128 (H) 70 - 99 11/05/2018 [facility] mg/dL 8:28 PM JOB HAND TEST, GLUCOSE Specimen Anatomical Collection Method Collection Time Receive d Time (Source) Location / / Volume Laterality 11/05/2018 8:16 PM 9 8:28 JOB HAND PM JOB HAND Juan Lewis MD LAB - BEFOUZIA POCT Performing Organization Address City/State/ZIP Code Phon e Number [facility] POINT OF CARE TEST, GLUCOSE POINT OF CARE TEST, GLUCOSE (ABNORMAL) Glucose by meter (11/05/2018 4:39 PM JOB HAND) P athologist Signature Glucose 124 (H) 70 - 99 11/05/2018 [facility] mg/dL 4:50 PM JOB HAND TEST, GLUCOSE Specimen Anatomical Collection Method Collection Time Receive d Time (Source) Location / / Volume Laterality 11/05/2018 4:39 PM 9 4:50 JOB HAND PM JOB HAND Juan Lewis MD LAB - BEFOUZIA POCT Performing Organization Address City/State/ZIP Code Phon e Number [facility] POINT OF CARE TEST, GLUCOSE POINT OF CARE TEST, GLUCOSE (ABNORMAL) CBC with platelets (11/05/2018 4:35 PM JOB HAND) Analysis Performed At Patho logist Time Signature WBC 7.3 4.0 - 11.0 11/05/2018 [facility] 10e9/L 5:22 PM [facility] RBC Count 4.35 (L) 4.4 - 5.9 11/05/2018 [facility] 10e12/L 5:22 PM [facility] Hemoglobin 13.7 13.3 - 11/05/2018 [facility] 17.7 g/dL 5:22 PM [facility] Hematocrit 40.9 40.0 - 11/05/2018 [facility] 53.0 % 5:22 PM [facility] MCV 94 78 - 100 11/05/2018 [facility] fl 5:22 PM [facility] MCH 31.5 26.5 - 11/05/2018 [facility] 33.0 pg 5:22 PM [facility] MCHC 33.5 31.5 - 11/05/2018 [facility] 36.5 g/dL 5:22 PM [facility] RDW 13.1 10.0 - 11/05/2018 [facility] 15.0 % 5:22 PM [facility] Platelet Count 108 (L) 150 - 450 11/05/2018 [facility] 10e9/L 5:22 PM [facility] Specimen Anatomical Collection Method Collection Time Receive d Time (Source) Location / / Volume Laterality Blood specimen 11/05/2018 4:35 PM 019 5:17 (specimen) JOB HAND PM JOB HAND Bessy Mccray MD LAB - BLOOD ORDERABLES Performing Organization Address City/State/ZIP Code Phon e Number [facility] [address] [place] [address] [phone] [facility] [address] [place] [address], [place] [phone] INR (11/05/2018 4:35 PM JOB HAND) P athologist Signature INR 1.03 0.86 - 1.14 11/05/2018 [facility] 5:33 PM [facility] Specimen Anatomical Collection Method Collection Time Receive d Time (Source) Location / / Volume Laterality Blood specimen 11/05/2018 4:35 PM 019 5:17 (specimen) JOB HAND PM JOB HAND Bessy Mccray MD LAB - BLOOD ORDERABLES Performing Organization Address City/State/ZIP Code Phon e Number [facility] [address] [place] [address] 95 [phone] [facility] [address] [place] [address], [place] [phone] Lactic acid whole blood (11/05/2018 4:35 PM JOB HAND) P athologist Signature Lactic Acid 1.0 0.7 - 2.0 11/05/2018 [place] mmol/L 5:57 PM JOB HAND [facility] Specimen Anatomical Collection Method Collection Time Receive d Time (Source) Location / / Volume Laterality Blood specimen 11/05/2018 4:35 PM 019 5:18 (specimen) JOB HAND PM JOB HAND Bessy Mccray MD LAB - BLOOD ORDERABLES Performing Organization Address City/State/ZIP Code Phon e Number [facility] [address] [place] [address] [phone] [facility] [address] [place] [address], [place] [phone] (ABNORMAL) Basic metabolic panel (11/05/2018 4:35 PM JOB HAND) Analysis Performed At Patho logist Time Signature Sodium 143 133 - 144 11/05/2018 [facility] mmol/L 5:38 PM [facility] Potassium 4.3 3.4 - 5.3 11/05/2018 [facility] mmol/L 5:38 PM [facility] Chloride 113 (H) 94 - 109 11/05/2018 [facility] mmol/L 5:38 PM [facility] Carbon Dioxide 22 20 - 32 11/05/2018 [facility] mmol/L 5:43 PM [facility] Anion Gap 8 3 - 14 11/05/2018 [facility] mmol/L 5:43 PM [facility] Glucose 121 (H) 70 - 99 11/05/2018 [facility] mg/dL 5:43 PM [facility] Urea Nitrogen 24 7 - 30 11/05/2018 [facility] mg/dL 5:43 PM [facility] Creatinine 1.30 (H) 0.66 - 11/05/2018 [facility] 1.25 mg/dL 5:43 PM [facility] GFR Estimate 53 (L) >60 11/05/2018 [place] mL/min/{1. 5:43 PM [facility] 73_m2} [facility] Comment: Non GFR Calc Starting 10/05/2018, serum creatinine ba sed estimated GFR (eGFR) will be calculated using the Chronic Kidney Dise [facility] Epidemiology Collaboration (CKD-EPI) equation. GFR Estimate If 61 >60 mL/min/{1.73_m2} 11/05/2018 5: 43 PM [facility] Comment: GFR Calc Starting 10/05/2018, serum creatinine ba sed estimated GFR (eGFR) will be calculated using the Chronic Kidney Dise [facility] Epidemiology Collaboration (CKD-EPI) equation. Calcium 8.6 8.5 - 10.1 mg/dL 11/05/2018 5:43 PM [facility] Specimen Anatomical Collection Method Collection Time Receive d Time (Source) Location / / Volume Laterality Blood specimen 11/05/2018 4:35 PM 019 5:17 (specimen) JOB [facility] PM [facility] Bessy Mccray MD LAB - BLOOD ORDERABLES Performing Organization Address City/State/ZIP Code Phon e Number M [facility] [address] [place] [address] [facility] [address] [place] [address], U [phone] IR Thoracic Endovascular Stent Graft (11/05/2018 12:09 PM JOB [facility]) Anatomical Region Laterality Modality Chest Radio Fluoroscopy Specimen (Source) Anatomical Location Collection Method / Collectio n Time Received Time / Laterality Volume Impressions 11/06/2018 3:33 PM [facility] IMPRESSION: Successful deployment in 2 components for [...] KANNAN MORSE MD Narrative 11/06/2018 3:33 PM [facility] INTERVENTIONAL RADIOLOGY THORACIC ENDOVASCULAR STENT GRAFT ??11/05/2018 [...] Plan is for endovascular repair with [employer] Valiant Navion stent graft system. TECHNIQUE: [...] tion. Over a series of maneuvers, 6 Estonian vascular sheath was placed. From left groin [...] tion. Over a series of maneuvers, 6 Estonian vascular sheath was placed. From left groin [...] Drain Placement w Fluoro (11/05/2018 9:10 AM [facility]) Anatomical Region Laterality Modality Spine Radio Fluoroscopy Specimen (Source) Anatomical Location Collection Method / Collectio n Time Received Time / Laterality Volume Narrative 11/05/2018 9:19 AM [facility] INTERVENTIONAL NEURORADIOLOGY PROCEDURAL NOTE FLUOROSCOPICALLY [...] codes included for physician referen ce only: [id number] MISSAEL GARCIA MD Procedure Note Missael Garcia [...] codes included for physician referen ce only: 25643/03385 MISSAEL GARCIA MD Butch Brown MD IMG IR ORDERABLES EKG 12-lead, tracing only (11/05/2018 6:58 AM J[facility]) [facility] gist Method Time Signature Interpretation ECG Click View RADIOLOGY Image link RESULTS to view waveform and result Specimen (Source) Anatomical Collection Method Collection Time Re ceived Time Location / / Volume Laterality 11/05/2018 6:58 AM [facility] Juan Lewis MD ECG ORDERABLES Performing Organization Address City/State/ZIP Code Phon e Number RADIOLOGY RESULTS Potassium (11/05/2018 6:55 AM J[facility]) P athologist Signature Potassium 4.3 3.4 - 5.3 11/05/2018 [place] mmol/L 7:15 AM [facility] Specimen Anatomical Collection Method Collection Time Receive d Time (Source) Location / / Volume Laterality Blood specimen 11/05/2018 6:55 AM 019 6:56 (specimen) JOB HAND AM [facility] Zakia Tobin MD LAB - BLOOD ORDERABLES Performing Organization Address City/State/ZIP Code Phon e Number M [facility] [address] [place] [address] [facility] [address] [place] [address], [place] [phone] Lipid panel (11/05/2018 6:55 AM [facility]) Analysis Performed At Patho logist Time Signature Cholesterol 128 <200 mg/dL 11/05/2018 [facility] 7:20 AM [facility] Triglycerides 125 <150 mg/dL 11/05/2018 [facility] 7:21 AM [facility] HDL Cholesterol 59 >39 mg/dL 11/05/2018 [facility] 7:23 AM [facility] LDL Cholesterol 44 <100 mg/dL 11/05/2018 [facility] Calculated 7:23 AM [facility] Comment: Desirable: <100 mg/dl Non HDL Cholesterol 69 <130 mg/dL 11/05/2018 7:23 AM [facility] Specimen Anatomical Collection Method Collection Time Receive d Time (Source) Location / / Volume Laterality Blood specimen 11/05/2018 6:55 AM 019 6:56 (specimen) JOB HAND AM JOB HAND Juan Lewis MD LAB - BLOOD ORDERABLES Performing Organization Address City/State/ZIP Code Phon e Number M [facility] [address] [place] [address] [facility] [address] [place] [address], [place] [phone] Hemoglobin A1c (11/05/2018 6:55 AM [facility]) athologist Signature Hemoglobin A1C 5.2 0 - 5.6 % 11/05/2018 [place] 7:30 AM [facility] Comment: Normal <5.7% Prediabetes 5.7-6.4% ??Diab etes 6.5% or higher - adopted from ADA consensus guidelines. Specimen Anatomical Collection Method Collection Time Receive d Time (Source) Location / / Volume Laterality Blood specimen 11/05/2018 6:55 AM 019 6:56 (specimen) JOB HAND AM JOB HAND Juan Lewis MD LAB - BLOOD ORDERABLES Performing Organization Address City/State/ZIP Code Phon e Number M [facility] [address] [address] [phone] [facility] [address] [place] [address], [place] [phone] (ABNORMAL) Creatinine (11/05/2018 6:55 AM [facility]) athologist Signature Creatinine 1.52 (H) 0.66 - 11/05/2018 [place] 1.25 mg/dL 7:20 AM [facility] GFR Estimate 44 (L) >60 11/05/2018 [place] mL/min/{1. 7:20 AM [facility] 73_m2} [facility] Comment: Non GFR Calc Starting 10/05/2018, serum creatinine ba sed estimated GFR (eGFR) will be calculated using the Chronic Kidney Dise [facility] Epidemiology Collaboration (CKD-EPI) equation. GFR Estimate If 51 (L) >60 mL/min/{1.73_m2} 11/05/2018 7: 20 AM [place] Black [facility] Comment: GFR Calc Starting 10/05/2018, serum creatinine ba sed estimated GFR (eGFR) will be calculated using the Chronic Kidney Dise [facility] Epidemiology Collaboration (CKD-EPI) equation. Specimen Anatomical Collection Method Collection Time Receive d Time (Source) Location / / Volume Laterality Blood specimen 11/05/2018 6:55 AM 019 6:56 (specimen) JOB HAND AM JOB HAND Juan Lewis MD LAB - BLOOD ORDERABLES Performing Organization Address City/State/ZIP Code Phon e Number M [facility] [address] [address] [phone] [facility] [address] [address], [facility] [phone] XR Chest Port 1 View (11/05/2018 6:40 AM JOB [facility]) Anatomical Region Laterality Modality Chest Digital Radiography Specimen (Source) Anatomical Location Collection Method / Collectio n Time Received Time / Laterality Volume Impressions 11/05/2018 6:58 AM [facility] IMPRESSION: No acute abnormality. TORI SANTIZO MD Narrative 11/05/2018 6:58 AM [facility] XR CHEST PORTABLE 1 VIEW ?? 11/05/2018 [...] CARDIAC - HIM SCAN (09/24/2018 12:00 AM [facility]) Specimen (Source) Anatomical Location Collection Method / [...] tablet 975 mg Given 11/08/2018 11:04 PM [facility] 975 mg 975 mg, Oral, EVERY 6 HOURS PRN, mild pain, fever, Starting on Thu11/05/18 at 1827, Maximum acetaminophen dose from all sources = 75 mg/kg/day not to exceed 4 grams/day. Given 11/08/2018 12:37 PM [facility] 975 mg Given 11/07/2018 11:03 AM [facility] 975 mg alum & mag hydroxide-simethicone (MYLANTA Given 11/08/2018 2:48 AM [facility] 30 mLs ES/MAALOX ES) suspension 30 mL 30 mL, Oral, EVERY 4 HOURS PRN, indigestion, Starting on Thu11/05/18 at 1510, Shake well. apixaban ANTICOAGULANT (ELIQUIS) tablet 2.5 Given 10/20 12:04 PM [facility] 2.5 mg mg 2.5 mg, Oral, 2 TIMES DAILY, First dose on Thu11/09/18 at 1115 atorvastatin (LIPITOR) tablet 40 mg Given 11/08/2018 8:20 PM [facility] 40 mg 40 mg, Oral, EVERY EVENING, First dose on Thu11/05/18 at 2000 Given 11/07/2018 7:49 PM [facility] 40 mg Given 11/06/2018 9:16 PM [facility] 40 mg calcium carbonate (TUMS) chewable tablet Given 11/07/2018 10 :34 PM [facility] 1,000 mg 1,000 mg 1,000 mg, Oral, EVERY 2 HOURS PRN, heartburn, Starting on Thu11/06/18 at 0408, Do not give if calcium level greater than 10 mg/dL. Given 11/07/2018 12:05 AM [facility] 1,000 mg Given 11/06/2018 4:50 AM [facility] 1,000 mg clindamycin (CLEOCIN) infusion 900 New Bag 11/06/2018 2:05 AM [facility] 900 mg 50 mL/hr mg Routine, 900 mg, Intravenous, EVERY 8 HOURS, First dose on Thu11/05/18 at 1800, For 2 doses, Indications: Perioperative Pharmacoprophylaxis, Post-procedure New Bag 11/05/2018 6:08 PM J[facility] 900 mg 50 mL/hr cyclobenzaprine (FLEXERIL) tablet 5-10 m g Given 11/08/2018 3:58 AM J[facility] 10 mg 5-10 mg, Oral, 3 TIMES DAILY PRN, muscle spasms, Starting on Thu11/07/18 at 1153 Given 11/07/2018 2:26 PM JOB HAND 5 mg dextrose 5% and 0.45% NaCl infusion New Bag 11/08/2018 6:44 PM JOB HAND 75 mL/hr at 75 mL/hr, Intravenous, CONTINUOUS, Starting on Thu11/07/18 at 1200, Until Thu11/09/18 at 0731 Restarted 11/08/2018 4:21 PM JOB HAND 75 mL/hr New Bag 11/08/2018 7:35 AM J[facility] 100 mL/hr diphenhydrAMINE (BENADRYL) injection 12. 5 mg 12.5 mg, Intravenous, EVERY 6 HOURS PRN, itching, Only give if patient unable to take PO., Starting on Thu11/05/18 at 151 0, Caution to be used when administering multiple SERVICE DESK DIRECTOR depressing meds within a sh ort time frame. For ordered IV doses 1-50 mg, give IV Push undiluted. Give each 25 mg over a minimum of 1 minute. Extend in non-emergency diphenhydrAMINE (BENADRYL) solution 12.5 mg 12.5 mg, Oral, EVERY 6 HOURS PRN, itchin g, Starting on Thu11/05/18 at 1510, Caution to be used when administering multiple SERVICE DESK DIRECTOR depressing meds within a short time frame. fentaNYL (PF) (SUBLIMAZE) 100 MCG/2ML in jection Starting on Thu11/05/18 at 0841, For 1 d ose, Gwen Rivas : cabinet override For ordered IV doses 1-100 mcg give IV Push undiluted over a minimum of 3-5 minutes. fentaNYL (PF) (SUBLIMAZE) injection 100 mcg Given 11/05/2018 7:45 AM [facility]OB [facility] 50 mcg 100 mcg, Intravenous, ONCE, Administer over 3-5 Minutes, On Thu11/05/18 at 0745, For 1 dose, For ordered IV doses 1-100 mcg give IV Push undiluted over a minimum of 3-5 minutes., Pre-procedure Given 11/05/2018 7:31 AM [facility] 50 mcg fentaNYL (PF) (SUBLIMAZE) injection 25-5 0 mcg Given 11/05/2018 8:48 AM J[facility] 50 mcg 25-50 mcg, Intravenous, EVERY 5 [...] 50 m cg Given 11/05/2018 1:33 PM JOB HAND 50 mcg 50 mcg, Intravenous, EVERY 5 MIN PRN, moderate to severe pain, Administer over 3-5 Minutes, Starting on Thu11/05/18 at 1333, For ordered IV doses 1-100 mcg give IV Push undiluted over a minimum of 3-5 minutes., PACU hydrALAZINE (APRESOLINE) injection 10-20 mg Given 11/08/2018 7:03 PM JOB HAND 10 mg 10-20 mg, Intravenous, EVERY 1 [...] over 1 minute. Given 11/08/2018 11:51 AM J[facility] 20 mg Given 11/08/2018 3:36 AM J[facility] 20 mg labetalol (NORMODYNE/TRANDATE) 5 MG/ML i njection Starting on Thu11/05/18 at 1521, For 1 d [employer] thomas Doreen : cabinet override For ordered doses up to 80 mg, give IV Push undiluted. Give each 20 mg over 2 minutes. labetalol (NORMODYNE/TRANDATE) injection 10 mg Given 11/05/2018 3:43 PM [facility] 10 mg 10 mg, Intravenous, EVERY 10 [...] 2 minutes., Post-procedure Given 11/05/2018 3:25 PM JOB HAND 10 mg labetalol (NORMODYNE/TRANDATE) injection 10 mg Given 11/05/2018 1:45 PM J[facility] 10 mg 10 mg, Intravenous, ONCE, Administer over 2-8 Minutes, On Thu11/05/18 at 1400, For 1 dose, For ordered doses up to 80 mg, give IV Push undiluted. Give each 20 mg over 2 minutes., PACU labetalol (NORMODYNE/TRANDATE) injection 10-20 Given 0 11/08/2018 3:03 AM [facility] 10 mg mg 10-20 mg, Intravenous, EVERY [...] over 2 minutes. Given 11/08/2018 2:33 AM J[facility] 20 mg Given 11/07/2018 10:35 PM [facility] 10 mg labetalol (NORMODYNE/TRANDATE) injection 20 Given 11/05/2018 12:37 PM J[facility] 10 mg mg 20 mg, Intravenous, ONCE, Administer over 2-8 Minutes, On Thu11/05/18 at 1315, For 1 dose, For ordered doses up to 80 mg, give IV Push undiluted. Give each 20 mg over 2 minutes., Pre-procedure labetalol (NORMODYNE/TRANDATE) injection 5 mg Given 11/05/2018 1:13 PM [facility] 5 mg 5 mg, Intravenous, ONCE, Administer over 2-8 Minutes, On Thu11/05/18 at 1315, For 1 dose, For ordered doses up to 80 mg, give IV Push undiluted. Give each 20 mg over 2 minutes., PACU lactated ringers infusion New Bag 11/05/2018 6:52 AM JOB [facility] 25 mL/hr at 25 mL/hr, Intravenous, CONTINUOUS, IF patient NOT on dialysis., Pre-procedure, Starting on Thu11/05/18 at 0645, Until Thu11/05/18 at 0836 lidocaine 1 % 1 mL Given 11/05/2018 6:53 AM J[facility] 0.3 mLs 1 mL, Other, EVERY 1 HOUR PRN, mild pain with VAD insertion or accessing implanted port, Starting on Thu11/05/18 at 0630, Do NOT give if patient has a history of allergy to any local anesthetic or any luoie product. MAX dose 1 mL subcutaneous OR [...] 2 5 mg Given 11/08/2018 8:22 AM J[facility] 25 mg 25 mg, Oral, 2 TIMES DAILY, First dose (after last modification) on Thu11/05/18 at 1615 Given 11/07/2018 7:49 PM [facility] 25 mg Given 11/07/2018 11:14 AM [facility] 25 mg metoprolol tartrate (LOPRESSOR) tablet 5 0 mg Given 11/09/2018 8:28 AM [facility] 50 mg 50 mg, Oral, 2 TIMES DAILY, First dose on Thu11/08/18 at 2100, Hold for SBP < 90, HR < 50 Given 11/08/2018 8:20 PM J[facility] 50 mg midazolam (VERSED) 1 MG/ML injection Starting on Thu11/05/18 at 0841, For 1 d Rob thomas Callie : cabinet override For ordered IV doses 0.1-2.5 mg give IV Push slowly titrat ed over a minimum of 2 minutes. Dilute each 1mg in 4mL of NS. midazolam (VERSED) injection 0.5-1 mg Given 11/05/2018 8:48 AM JOB [facility] 1 mg 0.5-1 mg, Intravenous, Administer over [...] injection 4 mg Given 11/05/2018 7:53 AM J[facility] 1 mg 4 mg, Intravenous, Administer over 2 Minutes, EVERY 4 MIN PRN, anxiety, Starting on Thu11/05/18 at 0732, For ordered IV doses 0.1-2.5 mg give IV Push slowly titrated over a minimum of 2 minutes. Dilute each 1mg in 4mL of NS., Pre-procedure Given 11/05/2018 7:49 AM JOB [facility] 1 mg Given 11/05/2018 7:38 AM J[facility] 1 mg omeprazole (priLOSEC) CR capsule 20 mg Given 11/09/2018 6:33 AM J[facility] 20 mg 20 mg, Oral, EVERY MORNING BEFORE BREAKFAST, First dose on 11/07/18 at 2345 Given 11/08/2018 8:22 AM J[facility] 20 mg Given 11/07/2018 11:48 PM [facility] 20 mg ondansetron (ZOFRAN) injection 4 mg Given 11/07/2018 11:48 PM J[facility] 4 mg 4 mg, Intravenous, EVERY 6 [...] half-tab 2.5-5 mg Given 11/08/2018 12:37 PM J[facility] 5 mg 2.5-5 mg, Oral, EVERY 4 HOURS PRN, moderate to severe pain, Starting on Thu11/05/18 at 1724 Given 11/08/2018 6:19 AM [facility] 5 mg Given 11/07/2018 7:49 PM [facility] 5 mg phenylephrine Rate/Dose Change 11/06/2018 6:45 0.3 mcg/kg/min 7.6 mL/ hr (OSIEL-SYNEPHRINE) 50 mg PM JOB HAND in sodium chloride 0.9 % 250 mL [...] goals. Vesicant. Rate/Dose Change 11/06/2018 6:15 PM J[facility] 0.5 mcg/kg/min 12.6 mL/hr Rate/Dose Change 11/06/2018 5:34 PM [facility] 0.7 mcg/kg/min 17.7 mL/hr sennosides (SENOKOT) tablet 8.6 mg Given 11/08/2018 3:36 AM J[facility] 8.6 mg 8.6 mg, Oral, 2 TIMES DAILY PRN, constipation, Starting on Thu11/08/18 at 0250 sodium chloride (PF) 0.9% PF flush 3 mL Given 11/07/2018 4:12 PM JOB [facility] 3 mLs 3 mL, Intracatheter, EVERY 8 HOURS, First dose on Thu11/05/18 at 1515, And Q1H PRN, to lock peripheral IV dormant line. Given 11/07/2018 11:34 AM JOB [facility] 3 mLs Given 11/07/2018 12:06 AM JOB HAND 10 mLs sodium chloride 0.9% infusion New Bag 11/06/2018 7:48 PM JOB HAND 100 mL/hr at 100 mL/hr, Intravenous, CONTINUOUS, For patient on renal dialysis. Saline lock after 1 liter if taking PO fluids., Post-procedure, Starting on Thu11/05/18 at 1515, Until Thu11/08/18 at 1245 New Bag 11/06/2018 12:08 PM JOB HAND 100 mL/hr New Bag 11/06/2018 2:33 AM JOB HAND 100 mL/hr terazosin (HYTRIN) capsule 5 mg Given 11/08/2018 9:21 PM JOB [facility] 5 mg 5 mg, Oral, AT BEDTIME, First dose on Thu11/05/18 at 2200 documented in this encounter Active and Recently Administered Medications Times are shown in JOB HAND. Scheduled Medication Order 11/07/2018 11/08/2018 11/09/2018 apixaban [...] 1426 (N ew Bag - Provider: Danette Pekc RN)1535 (Rate/Dose Verify - Provider: Aura Crooks [...] Caution to be used when administering multiple SERVICE DESK DIRECTOR depressing meds within a short time frame. For ordered IV doses 1-50 m g, give IV Push undiluted. Give each 25mg over a minimum of 1 minute. Extend in non-emergency diphenhydrAMINE (BENADRYL) solution 12.5 mg(Linked Group 1) 12.5 mg, Oral, EVERY 6 HOURS PRN, itchin g, Starting 11/05/18 at 1510, Caution to be used when administering multiple SERVICE DESK DIRECTOR depressing meds within a short time frame. [...] tablet 8.6 mg 0336 (Given - Provider: Krisyt Castañeda, JOSE) 8.6 mg, Oral, 2 TIMES [...]
Caution to be used when administering multiple SERVICE DESK DIRECTOR depressing meds within a short time frame.
Or diphenhydrAMINE (BENADRYL) injection 12.5 mgJump to med 12.5 mg, Intravenous, EVERY 6 HOURS PRN, itching, Only give if patient unable to take PO., Starting Thu11/05/18 at 1510
Caution to be used when administering multiple SERVICE DESK DIRECTOR depressing meds within a short time frame. [...] documented as of this encounter Care Teams Haircutter Relationship Specialty Start Date End Date Clinic, [facility] [place] PCP - General 05/12/17 [address] [place] [address] documented as of this encounter
--- OUTSIDE RECORDS SUMMARY | 2022-06-20 08:52 | XMS_ITS | Encounter Summary ---
:1940 Author Organization [place] Address [facility] [place] [address] Care Team Providers Name Role Phone [facility], [facility] Primary Care Provider [phone] Encounter Details Date Type Department Care Team Description 10/21/2018 Telephone [facility] Sophie piper, Juan Nava MD Clinic Tram [address] [place] [address] [place] [address] [phone] Social History Tobacco Use Types Packs/Day Years [...] REPAIR WITH [employer] Location of surgery: [facility] Date and time of surgery: 11/05/18 @ 8:30AM Surgeon: DR. VÁSQUEZ AND DR. GARVIN Pre-Op Appt Date: PT TO SCHEDULE AT [facility] Post-Op Appt Date: PT TO SCHEDULE Packet sent out: MAILED 10/25/18 Pre-cert/Authorization completed: Yes Date: 10/28/18 I have notified IR, ICU and anesthesia about this case. I have verified that anesthesia agrees with 3 day Eliquis hold because pt will need spinal drain. Aruna Simmons, In Classroom Tutor TAL FIELD SERVICE TECHNICIAN Telephone Encounter - Aruna Simmons - 10/25/2018 4:25 PM CST Spoke with daughter, Raquel, and she will have her dad come on 11/03/18 @ 9:00 to the [facility] lab for type and screen. I called the lab to make the appt for them. Aruna Simmons, In Classroom Tutor TAL FIELD SERVICE TECHNICIAN Telephone Encounter - Sondra Johnson RN - 10/22/2018 12:50 PM CST RN called [facility] Blood [facility] and informed them of pt's upcoming surgery and request for 2 units of packed RBCs are available. Discussed with Blood Bank pt has RBC antibodies. Per Pam in blood bank, pt needs to have a type and screen drawn here at [facility] 48 hours prior to procedure. Pam stated pt could makea lab appointment on 11/03/18 or morning of 11/04/18. Pt's lab from 09/28/18 cannot be used as reference. Order entered for ABO/type and screen. Will route back to surgery scheduling. SHSATA Winkler, RN TAL FIELD SERVICE TECHNICIAN Telephone Encounter - Aruna Simmons - 10/21/2018 [...] prior to the upcoming surgery. Aruna Simmons, In Classroom Tutor TAL FIELD SERVICE TECHNICIAN documented in this encounter Plan of Treatment Not on filedocumented as of this encounter Results (ABNORMAL) ABO/Rh type and screen (11/03/2018 9:10 AM DIGITAL FIELD SERVICE TECHNICIAN) [facility] Method Time Signature Units Ordered 4 11/05/2018 [facility] 1:30 PM [facility] ABO O 11/03/2018 [facility] 10:15 AM [facility] RH(D) Pos [facility] Antibody Pos (A) 11/03/2018 [facility] Screen 10:15 AM [facility] Test Valid [place] 11/03/2018 [facility] Only At [facility] 9:31 AM [facility] Specimen 11/06/2018 11/03/2018 [facility] Expires 9:31 AM [facility] Crossmatch Red Blood 11/03/2018 [facility] Cells 9:31 AM [facility] Specimen Anatomical Collection Method Collection Time Receive d Time (Source) Location / / Volume Laterality Blood specimen 11/03/2018 9:10 AM 019 9:19 (specimen) DIGITAL FIELD SERVICE TECHNICIAN AM DIGITAL FIELD SERVICE TECHNICIAN Juan Vásquez MD LAB - BLOOD BANK TEST ORDER Performing Organization Address City/State/ZIP Code Phon e Number M [facility] [address] [address] [facility] [address] [address], [facility] [phone] documented in this encounter Visit Diagnoses Diagnosis Abdominal aortic aneurysm (AAA) without rupture (H) - Primary Encounter for pre-operative laboratory t esting Preoperative examination, unspecified documented in this encounter Additional Health Concerns Infection Onset Date Last Indicated Resolved Time MRSAComment: Positive 02/17/11 and 09/22/12 11/05/2018 019 Negatives 05/03/14 (HE), 12/01/14 (HE) documented as of this encounter Care Teams Private Wealth Advisor Relationship Specialty Start Date End Date [facility], [facility] PCP - General 05/12/17 [address] [place] [address] documented as of this encounter
--- OUTSIDE RECORDS SUMMARY | 2022-06-20 08:52 | XMS_ITS | Encounter Summary ---
:1940 Author Organization [place] Address [facility] [place] [address] Care Team Providers Name Role Phone Clinic, [facility] Primary Care Provider [phone] Reason for Visit Reason Onset Date Comments Clinic Care Coordination - Follow-up 10/01/2018 Encounter Details Date Type Department Care Team Description 10/01/[address] [facility] C are Coordination Vascular Clinic Félix Nava MD - Follow-up [address] [place] [address] [place] [address] [phone] Social History Tobacco Use Types Packs/Day Years [...] for any further questions. SHASTA Winkler, RN RACT MANAGER Telephone Encounter - Sondra Johnson RN [...] appointment with Dr. Lewis. SHASTA Winkler, RN RACT MANAGER Telephone Encounter - Sondra Johnson RN - 10/01/2018 1:[address] Lewis's request, contact pt's daughter Raquel with an update on care plan. Raquel updated that Dr. Lewis will contact her on Thursday with a new plan for her dad. Raquel was in agreement with this plan. SHASTA Winkler, RN RACT MANAGER documented in this encounter Plan of Treatment Not on filedocumented as of this encounter Visit Diagnoses Not on filedocumented in this encounter Care Teams Outsole Leveler Relationship Specialty Start Date End Date [facility] [place] PCP - General 05/12/[address] [place] [id number] documented as of this encounter
--- OUTSIDE RECORDS SUMMARY | 2022-06-20 08:52 | XMS_ITS | Encounter Summary ---
:1940 Author Organization [place] Address [facility] [place] [address] Care Team Providers Name Role Phone Clinic, [facility] Primary Care Provider [phone] Encounter Details Date Type Department Care Team Description 11/05/2018 Anesthesia Event [facility] Bart Feliciano [place] MD Interventional [facility] Radiology [address] [place] [address] [place] [id number] [phone] Anesthesia Record Procedure Summary Procedure Name Responsible [...] documented as of this encounter Care Teams Lead Oxide Mill Tender Relationship Specialty Start Date End Date [facility], [facility] PCP - General 05/12/[address] [place] [id number] documented as of this encounter
--- OUTSIDE RECORDS SUMMARY | 2022-06-20 08:52 | XMS_ITS | Encounter Summary ---
:1940 Author Organization [place] Address [address] [facility] [place] [address] Care Team Providers Name Role Phone Clinic, [facility] Primary Care Provider [phone] Reason for Visit Auth/Cert Specialty Diagnoses / Procedures Referred By Contact Refer red To Contact Surgery Diagnoses DESCENDING THORACIC AORTIC ANEURYSM Sh Periop Services Procedures ENDOVASCULAR REPAIR ANEURYSM THORACIC AORTIC [address] [place] [address] Phone: Referral ID Status Reason Start Date Expiration Date Visits Requ ested Visits Authorized [id number] 1 1 Encounter Details Date Type Department Care Team Description 11/05/2018 Anesthesia Event [facility] Fela Conrad PeriOP Ser vices Andrade [address] ANESTHESIOLOGISTS [place] [address] [phone] [place] [id number] (Wo rk) Anesthesia Record Procedure Summary Procedure [...] with oral Ivon Aguilar airway; Ease of METHOD CONSULTANT REGISTRATION SCHEDULING SPECIALIST Intubation: Easy; Airway Size: 8; Cuffed; Oral; Blade Type: Glidescope; Blade Size: 4; Place by: Ryan Whitmorezer; Insertion Attempts: 1; Secured at (cm)to lip: 23 cm; Breath Sounds: Equal, clear and bilateral; End Tidal CO2: Present; Dentition: Intact, Unchanged; Grade View of Cords: 1; Airway Adjuncts: [place] scope Left Groin Interventional #1; 09/28/18; 1500 [...] Fela Conrad November 05, 2018 3:25 PM GE IRONWORKER HELPER Anesthesia Procedure Notes - Fela Conrad - 11/05/2018 3:24 PM BRIDGE IRONWORKER HELPER Associated Order(s): Central line catheter placement CENTRAL [...] flushed: Yes Comments: Central Line No complications. GE IRONWORKER HELPER Anesthesia Procedure Notes - Fela Conrad - 11/05/2018 3:23 PM BRIDGE IRONWORKER HELPER Associated Order(s): A Line Catheter Placement ARTERIAL [...] waveform: Yes Comments: Arterial Line No complications GE IRONWORKER HELPER Anesthesia Preprocedure Evaluation - Fela Conrad - [...] and alternatives discussed with: Patient.. Fela Conrad GE IRONWORKER HELPER documented in this encounter Miscellaneous Notes [...] APRN CRNA November 05, 2018 12:44 PM GE IRONWORKER HELPER documented in this encounter Plan of Treatment Not on filedocumented as of this encounter Procedures Procedure Name Priority Date/Time Associated Diagnosis Comme nts FV AN RI PA CENTRAL Routine 11/05/2018 3:24 PM BRIDGE IRONWORKER HELPER LINE CATHETER PROCEDURE Procedure Note - Dariel [...] LINE CATHETER PLACEMENT Routine 11/05/2018 3:23 PM BRIDGE IRONWORKER HELPER Procedure Note - Dariel Conrad - 11/05/2018 [...] clindamycin (CLEOCIN) infusion Given 11/05/2018 10:28 AM BRIDGE IRONWORKER HELPER 900 mg Routine, PRN, Starting on Thu11/05/18 at 1028, Anesthesia Intra-op dexamethasone (DECADRON) injection Given 11/05/2018 10:25 AM BRIDGE IRONWORKER HELPER 4 mg PRN, Administer over 1 Minutes, Starting on Thu11/05/18 at 1025, Anesthesia Intra-op ePHEDrine injection Given 11/05/2018 10:55 AM BRIDGE IRONWORKER HELPER 10 mg PRN, Starting on Thu11/05/18 at 1025, Anesthesia Intra-op Given 11/05/2018 10:38 AM BRIDGE IRONWORKER HELPER 5 mg Given 11/05/2018 10:25 AM BRIDGE IRONWORKER HELPER 5 mg fentaNYL (PF) (SUBLIMAZE) injection Given 11/05/2018 11:48 AM BRIDGE IRONWORKER HELPER 50 mcg PRN, Administer over 3-5 Minutes, Starting on Thu11/05/18 at 1010, Anesthesia Intra-op Given 11/05/2018 11:17 AM BRIDGE IRONWORKER HELPER 50 mcg Given 11/05/2018 10:10 AM BRIDGE IRONWORKER HELPER 100 mcg glycopyrrolate (ROBINUL) injection Given 11/05/2018 12:09 PM BRIDGE IRONWORKER HELPER 0.2 mg PRN, Administer over 1-2 Minutes, Starting on Thu11/05/18 at 1055, Anesthesia Intra-op Given 11/05/2018 12:07 PM BRIDGE IRONWORKER HELPER 0.4 mg Given 11/05/2018 10:55 AM BRIDGE IRONWORKER HELPER 0.2 mg heparin (porcine) injection Given 11/05/2018 10:59 AM BRIDGE IRONWORKER HELPER 7,000 Units PRN, Starting on Thu11/05/18 at 1059, Anesthesia Intra-op lactated ringers infusion New Bag 11/05/2018 7:30 AM BRIDGE IRONWORKER HELPER Intravenous, CONTINUOUS PRN, Anesthesia Intra-op, Starting on Thu11/05/18 at 0957, Until Thu11/05/18 at 1244 lactated ringers infusion New Bag 11/05/2018 9:57 AM BRIDGE IRONWORKER HELPER CONTINUOUS PRN, Anesthesia Intra-op, Starting on Thu11/05/18 at 0730, Until Thu11/05/18 at 1244 New Bag 11/05/2018 7:30 AM BRIDGE IRONWORKER HELPER lidocaine 2% injection (MDV) Given 11/05/2018 10:14 AM BRIDGE IRONWORKER HELPER 80 mg PRN, Starting on Thu11/05/18 at 1014, Anesthesia Intra-op neostigmine (PROSTIGMINE) injection Given 11/05/2018 12:09 PM BRIDGE IRONWORKER HELPER 2 mg Intravenous, PRN, Starting on Thu11/05/18 at 1207, Anesthesia Intra-op Given 11/05/2018 12:07 PM BRIDGE IRONWORKER HELPER 2 mg nitroGLYcerin 25 mg in D5W 250 mL infusi on Given 11/05/2018 12:39 PM BRIDGE IRONWORKER HELPER 10 mcg PRN, Starting on Thu11/05/18 at 1113, Anesthesia Intra-op Given 11/05/2018 12:38 PM BRIDGE IRONWORKER HELPER 15 mcg Given 11/05/2018 11:15 AM BRIDGE IRONWORKER HELPER 10 mcg ondansetron (ZOFRAN) injection Given 11/05/2018 12:07 PM BRIDGE IRONWORKER HELPER 4 mg PRN, Administer over 2-5 Minutes, Starting on Thu11/05/18 at 1207, Anesthesia Intra-op phenylephrine (CHRISTINE-SYNEPHRINE) injection Bolus 11/05/2018 11:23 AM BRIDGE IRONWORKER HELPER 50 mcg CONTINUOUS PRN, Starting on Thu11/05/18 at 1120, Anesthesia Intra-op New Bag 11/05/2018 11:20 AM BRIDGE IRONWORKER HELPER 50 mcg phenylephrine 0.2 mg/mL Restarted 11/05/2018 11:39 AM 0.2 mcg/kg/min 5.06 mL/hr (mcg/kg/min) drip BRIDGE IRONWORKER HELPER CONTINUOUS PRN, Starting on Thu11/05/18 at 1024, Anesthesia Intra-op Rate/Dose Change 11/05/2018 11:27 AM BRIDGE IRONWORKER HELPER 0.2 mcg/kg/min 5.06 mL/hr Restarted 11/05/2018 11:20 AM BRIDGE IRONWORKER HELPER 0.3 mcg/kg/min 7.59 mL/hr propofol (DIPRIVAN) injection 10 mg/mL v ial Given 11/05/2018 11:17 AM BRIDGE IRONWORKER HELPER 30 mg PRN, Starting on Thu11/05/18 at 1014, Anesthesia Intra-op Given 11/05/2018 10:14 AM BRIDGE IRONWORKER HELPER 170 mg rocuronium (ZEMURON) injection Given 11/05/2018 10:15 AM BRIDGE IRONWORKER HELPER 50 mg PRN, Starting on Thu11/05/18 at 1015, Anesthesia Intra-op sodium chloride 0.9% infusion New Bag 11/05/2018 9:57 AM BRIDGE IRONWORKER HELPER CONTINUOUS PRN, Anesthesia Intra-op, Starting on Thu11/05/18 at 0957, Until Thu11/05/18 at 1244 vecuronium (NORCURON) injection Given 11/05/2018 11:23 AM BRIDGE IRONWORKER HELPER 1 mg PRN, Starting on Thu11/05/18 at 1031, Anesthesia Intra-op Given 11/05/2018 10:31 AM BRIDGE IRONWORKER HELPER 2 mg documented in this encounter Additional Health Concerns Infection Onset Date Last Indicated Resolved Time MRSAComment: Positive 02/17/11 and 09/22/12 11/05/2018 019 Negatives 05/03/14 (HE), 12/01/14 (HE) documented as of this encounter Care Teams Geosciences Faculty Member Relationship Specialty Start Date End Date [facility], [facility] PCP - General 05/12/[address] [place], [place] [id number] documented as of this encounter
--- OUTSIDE RECORDS SUMMARY | 2022-06-20 08:52 | XMS_ITS | Encounter Summary ---
:1940 Author Organization [place] Address [facility] [place] [address] Care Team Providers Name Role Phone Clinic, [facility] Primary Care Provider [phone] Encounter Details Date Type Department Care Team Description 11/05/2018 Anesthesia Event [facility] Zakia Santoyo, Interventional Radio logy [address] [place] [address] ANESTHESIOLOGY [phone] [address] [place] [address] Anesthesia Record Procedure Summary Procedure Name Responsible [...] on filedocumented in this encounter Care Teams Deburring Machine Operator Relationship Specialty Start Date End Date Kehinde Portillo PCP - General 05/12/[address] [place] [address] documented as of this encounter
--- OUTSIDE RECORDS SUMMARY | 2022-06-20 08:52 | XMS_ITS | Encounter Summary ---
:1940 Author Organization [place] Address [address] [place] [address] Care Team Providers Name Role Phone Kehinde Portillo Primary Care Provider [phone] Encounter Details Date Type Department Care Team [...] on filedocumented in this encounter Care Teams Street Commissioner Relationship Specialty Start Date [facility] - [facility] 05[facility] [place] [id number] documented as of this encounter
--- OUTSIDE RECORDS SUMMARY | 2022-06-20 08:52 | XMS_ITS | Encounter Summary ---
:1940 Author Organization [place] Address [address] [place] [address] Care Team Providers Name Role Phone Clinic, [facility] Primary Care Provider [phone] Reason for Visit Surgical Procedure Inpatient (Routine) - Closed Specialty Diagnoses / Procedures Referred By Contact Refer red To Contact Vascular Surgery / Diagnoses DESCENDING THORACIC AORTIC ANEURYSM Juan Vásquez Brett Surgery Procedures *OR51*DR. VÁSQUEZ/DR. GARVIN*THORACIC ENDOVASCULAR ANEURYSM REPAIR WITH [facility]RAFT MD Pierre Nava MD [address] [place] [address] [place] [address] Fax: Referral ID Status Reason Start Date Expiration Date Visits Requ ested Visits Authorized [id number] Closed 11/05/2018 11/05/2019 1 1 Encounter Details Date Type Department Care Team Description 11/05/2018 Office Visit SX SURGERY CASES Butch Garvin MD [address] [place] [address] Juan Vásquez MD [address] [place] [id number] Fellow, Sh Surg Cons Social History Tobacco [...] documented as of this encounter Care Teams Hat Liner Relationship Specialty Start Date End Date [facility] PCP - General 05/12/17 [address] [place] [address] documented as of this encounter
--- OUTSIDE RECORDS SUMMARY | 2022-06-20 08:52 | XMS_ITS | Encounter Summary ---
:1940 Author Organization [place] Address [address] [facility] [place] [address] Care Team Providers Name Role Phone [facility] Primary Care Provider [phone] Reason for Visit Auth/Cert Specialty Diagnoses / Procedures Referred By Contact Refer red To Contact Surgery Diagnoses DESCENDING THORACIC AORTIC ANEURYSM Sh Periop Services Procedures ENDOVASCULAR REPAIR ANEURYSM THORACIC AORTIC [address] [place] [address] Phone: Referral ID Status Reason Start Date Expiration Date Visits Requ ested Visits Authorized [id number] 1 1 Encounter Details Date Type Department Care Team Description 11/03/2018 Hospital Encounter [facility] Juan Lewis En counter for [facility] MD Elijah pre-operative [address] [place] [address] [address] [place] [address] Social History Tobacco Use Types Packs/Day Years [...] AM Encounter for Resul ts for this TELLER MANAGER pre-operative procedure are in laboratory testing the resul ts section. BLOOD COMPONENT Routine 11/03/2018 9:10 AM Encounter for Resul ts for this TELLER MANAGER pre-operative procedure are in laboratory testing the resul ts section. BLOOD COMPONENT Routine 11/03/2018 9:10 AM Encounter for Resul ts for this TELLER MANAGER pre-operative procedure are in laboratory testing the resul ts section. BLOOD COMPONENT Routine 11/03/2018 9:10 AM Encounter for Resul ts for this TELLER MANAGER pre-operative procedure are in laboratory testing the resul ts section. ABO/RH TYPE AND Routine 11/03/2018 9:10 AM Encounter for Resul ts for this SCREEN TELLER MANAGER pre-operative procedure are in laboratory testing the resul ts section. documented in this encounter Results Blood component (11/03/2018 9:10 AM TELLER MANAGER) [facility] Method Time Signature Unit Number [id number] 11/05/2018 [facility] 7:55 AM [facility] Blood Red Blood Cells 11/05/2018 [facility] Component LeukoReduced 7:55 AM [facility] (Part 2) HOSPITAL Division 00 11/05/2018 [facility] Number 7:55 AM [facility] Status of No longer 11/07/2018 [facility] Unit available 3:00 AM [facility] 11/07/2018 0300 [facility] Blood Product [id number] 11/05/2018 [facility] Code 7:55 AM [facility] Unit Status [facility] Specimen Anatomical Collection Method Collection Time Receive d Time (Source) Location / / Volume Laterality 11/03/2018 9:10 AM 9 9:19 TELLER MANAGER AM TELLER MANAGER Juan Lewis MD LABORATORY Performing Organization Address City/State/ZIP Code Phon e Number [facility] [address], [place] [address] [facility] [address] [place] [address], [facility] [address], [place] [address], [facility] [phone] Blood component (11/03/2018 9:10 AM TELLER MANAGER) [facility] gist Method Time Signature Unit Number [id number] 11/05/2018 [facility] 7:55 AM [facility] Blood Red Blood 11/05/2018 [facility] Component Cells 7:55 AM [facility] Reduced Division 00 11/05/2018 [facility] Number 7:55 AM [facility] Status of No longer 11/07/2018 [facility] Unit available 3:00 AM [facility] 11/07/2018 HOSPITAL 0300 Blood Product [id number] 11/05/2018 [facility] Code 7:55 AM [facility] Unit Status [facility] Specimen Anatomical Collection Method Collection Time Receive d Time (Source) Location / / Volume Laterality 11/03/2018 9:10 AM 9 9:19 TELLER MANAGER AM TELLER MANAGER Juan Lewis MD LABORATORY Performing Organization Address City/State/ZIP Code Phon e Number [facility] [address], [place] [address] [place] [address] [place] [address], [facility] [address], [place] [address], [facility] [phone] Blood component (11/03/2018 9:10 AM TELLER MANAGER) [facility] Method Time Signature Unit Number [id number] 11/03/2018 [facility] 10:39 AM [facility] Blood Red Blood 11/03/2018 [facility] Component Cells 10:39 AM [facility] Reduced Division 00 11/03/2018 [facility] Number 10:39 AM [facility] Status of No longer 11/07/2018 [facility] Unit available 3:00 AM [facility] 11/07/2018 HOSPITAL 0300 Blood Product [id number] 11/03/2018 [facility] Code 10:39 AM [facility] Unit Status [facility] Specimen Anatomical Collection Method Collection Time Receive d Time (Source) Location / / Volume Laterality 11/03/2018 9:10 AM 9 9:19 TELLER MANAGER AM TELLER MANAGER Juan Lewis MD LABORATORY Performing Organization Address City/State/ZIP Code Phon e Number [facility] [address], [place] [address] [facility] [address] [address], [facility] [address], [place] [address], [facility] [phone] Blood component (11/03/2018 9:10 AM TELLER MANAGER) [facility] [employer] Method Time Signature Unit Number [id number] 11/03/2018 [facility] 10:39 AM [facility] Blood Red Blood 11/03/2018 [facility] Component Cells 10:39 AM [facility] Leukocyte HOSPITAL Reduced Division 00 11/03/2018 [facility] Number 10:39 AM [facility] Status of No longer 11/07/2018 [facility] Unit available 3:00 AM [facility] 11/07/2018 HOSPITAL 0300 Blood Product [id number] 11/03/2018 [facility] Code 10:39 AM [facility] Unit Status [facility] Specimen Anatomical Collection Method Collection Time Receive d Time (Source) Location / / Volume Laterality 11/03/2018 9:10 AM 9 9:19 TELLER MANAGER AM TELLER MANAGER Juan Lewis MD LABORATORY Performing Organization Address City/State/ZIP Code Phon e Number [facility] [address], [place] [address] [facility] [address] [place] [address], [facility] [address], [place] [address], [facility] [phone] (ABNORMAL) ABO/Rh type and screen (11/03/2018 9:10 AM TELLER MANAGER) [facility] [employer] Method Time Signature Units Ordered 4 11/05/2018 [facility] 1:30 PM [facility] ABO O 11/03/2018 [facility] 10:15 AM [facility] RH(D) Pos [facility] Antibody Pos (A) 11/03/2018 [facility] Screen 10:15 AM [facility] Test Valid [place] 11/03/2018 [place] Only At [facility] 9:[address] [facility] Specimen 11/06/2018 11/03/2018 [place] Expires 9:31 AM [facility] Crossmatch Red Blood 11/03/2018 [place] Cells 9:31 AM [facility] Specimen Anatomical Collection Method Collection Time Receive d Time (Source) Location / / Volume Laterality Blood specimen 11/03/2018 9:10 AM 019 9:19 (specimen) TELLER MANAGER AM TELLER MANAGER Juan Lewis MD LAB - BLOOD BANK TEST ORDER Performing Organization Address City/State/ZIP Code Phon e Number [facility] [address] [place] [address] [facility] [address] [place] [address], [facility] [phone] documented in this encounter Visit Diagnoses Diagnosis Encounter for pre-operative laboratory t esting Preoperative examination, unspecified documented in this encounter Care Teams Animal Cruelty Investigation Supervisor Relationship Specialty Start Date End Date Clinic, [facility] Clinic PCP - General 05/12/[address] [place] [address] documented as of this encounter
--- OUTSIDE RECORDS SUMMARY | 2022-06-20 08:52 | XMS_ITS | Encounter Summary ---
:1940 Author Organization [facility] Address [address] 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 Periop Services Procedures ENDOVASCULAR REPAIR ANEURYSM THORACIC AORTIC [address], [address] [place] [address] Phone: Referral ID Status Reason Start Date Expiration Date Visits Requ ested Visits Authorized [id number] 1 1 Encounter Details Date Type Department Care Team Description 11/05/2018 Surgery [facility] Juan Lewis THORACIC ENDOVASCULAR [place] PeriOP MD Elijah ANEURYSM REPAIR WITH Services [address] [employer], [address] [place] [address] [place] [address] [phone] Surgery Details Date/Time Status Location OR Service [...] Comments Blood Pressure 159/88 11/05/2018 9:00 AM PLANNING ANALYST Pulse 57 11/05/2018 9:00 AM PLANNING ANALYST Temperature 36.7 ??C (98.1 ??F) 11/05/2018 6:27 AM PLANNING ANALYST Respiratory Rate 21 11/05/2018 9:05 AM PLANNING ANALYST Oxygen Saturation 100% 11/05/2018 9:05 AM PLANNING ANALYST Inhaled Oxygen Concentration - - Weight 84.3 kg (185 lb 14.4 oz) 11/05/2018 6:27 AM PLANNING ANALYST Height 167.6 cm (5' 6) 11/05/2018 6:27 AM PLANNING ANALYST Body Mass Index 31.06 11/05/2018 6:27 AM PLANNING ANALYST documented in this encounter Discharge Summaries Bessy Mccray MD - 11/09/2018 10:56 AM CST Physician Discharge Summary Patient ID: Speedy Hendricks [id number] 78 year old 1940 Admit date: 11/05/2018 [...] an oral diet. He was discharged to [facility] on POD#4 in stable condition. Consults: pulmonary/intensive [...] to. Signed: Bessy Mccray 11/09/2018 10:56 AM NING ANALYST Associated attestation - Juan Lewis MD - 11/11/2018 3:10 PM PLANNING ANALYST Physician Attestation I, Juan Lewis, have reviewed [...] Traylor RN - 11/09/2018 11:47 AM CST NING ANALYST AttachmentsThe following attachments cannot be sent through Care Everywhere.(S) TREATING A THORACIC AORTIC ANEURYSM (TAA): ENDOVASCULAR GRAFT (WOLOF) documented in this encounter Medications at Time [...] home with family via car.All questions answered. NING ANALYST Gurwinder Godoy MD - 11/09/2018 12:02 PM CST [facility] Vascular Medicine Progress Note Date of Service (when I saw the patient): 11/09/2018 Physician Supervisory Attestation: I have reviewed and discussed with the physician autopsy assistant their history, physical and plan and [...] Discussed with vascular surgery service. Gurwinder Godoy MD,[facility] Vascular Medicine service 11/09/2018 Assessment & Plan Speeyd Hendricks is a 78 year old male [...] Rate: 93 Resp: 22 SpO2: 93 % [id number]: None (Room air) Vitals: 11/06/18 0211 11/07/18 [...] = values in this interval not displayed. NING ANALYST Bessy Mccray MD - 11/09/2018 7:36 AM [...] Bessy Martinez MD Vascular Surgery Fellow Pager NING ANALYST Associated attestation - Butch Brown MD - 11/16/2018 9:50 AM PLANNING ANALYST I was involved with the assessment and plan, and I agree with the findings and plan of care as documented in the fellow's note. MD Wilfredo Castillo Carley, RN - 11/08/2018 6:35 PM CST Pt arrived to station 33 @ 1820 NING ANALYST Aura Crooks RN - 11/08/2018 5:05 PM CST Pt had drained removed this AM. Draining moderate amount- MDA aware. SR. BP wnl- gave hydralazine x1prn. Chapman to be removed prior to transfer. Lines out and hemostasis achieved. Up to chair- tolerated well, SBA. Frequent neuros- wnl. Will call report to [facility] and will transfer at . NING ANALYST Dimas Chapman MD - 11/08/2018 12:41 PM CST [facility] Vascular Medicine Progress Note Date of [...] -- AST 19 -- -- -- -- NING ANALYST Bessy Mccray MD - 11/08/2018 8:18 AM [...] Bessy Martinez MD Vascular Surgery Fellow Pager NING ANALYST Associated attestation - Butch Brown MD - 11/16/2018 3:00 PM PLANNING ANALYST I was involved with the assessment and [...] please contact primary service first. Kaleb Rodriguez NING ANALYST Kristy Castañeda RN - 11/08/2018 6:50 AM CST [address] Tobin at bedside and removed lumbar drain. Pt tolerated well. Neuro checks q 30 min for the next 6 hours. Dry gaze and Tegaderm to site. Kristy Gamez RN NING ANALYST Zakia Tobin MD - 11/08/2018 6:47 AM [...] Surgeon with any neuro changes. ?? Zakia Tboin MD. Bart Conklin MD - 11/07/2018 3:39 [...] drain tubing following unclamping. plts [place] [id number] down from 100s yesterday. At this time, [...] Nunes MD - 11/07/2018 11:55 AM CST Auto Tune Up Mechanic: S: Mild groin pain this morning, but [...] Dr. Staley of vascular medicine at bedside. Auto Tune Up Mechanic service will sign off for now. Please re-consult as needed. NING ANALYST Gurwinder Godoy MD - 11/07/2018 9:09 AM CST [facility] Vascular Medicine Progress Note Date of [...] If any change in neuro status contact [facility] surgery first and consider neurocritical care [...] good Reviewed last night events, discussed with Auto Tune Up Mechanic and ICU nursing staff this am. Patients [...] . Avoid nephrotoxic meds. ?? Gurwinder Godoy MD,[facility] Vascular Medicine Interval History Reviewed last night [...] 7.8* 8.6 -- GLC 115* 121* -- NING ANALYST Danette Peck RN - 11/07/2018 8:50 AM [...] to keep SBP <160 and MAP >80. NING ANALYST Gurwinder Godoy MD - 11/06/2018 12:00 PM CST [facility] Vascular Medicine Progress Note Date of [...] . Avoid nephrotoxic meds. ?? Gurwinder Godoy MD,[facility] Vascular Medicine Interval History Reviewed last night [...] cervical lymphadenopathy and no supraclavicular lymphadenopathy. Genitourinary: Chapamn in place Skin: surgical site looks good [...] 7.8* 8.6 -- GLC 115* 121* -- NING ANALYST Millie Handley APRN BAGGAGE HANDLER - 11/06/2018 11:55 AM CST Critical Care [...] Total critical care time today 35 min. NING ANALYST Associated attestation - Bishop Tran MD - 11/12/2018 10:50 AM PLANNING ANALYST Physician Attestation I, Bishop Tran, have reviewed [...] sufficient urine. Continue plan as documented in ENERGY CONSERVATION ENGINEER note. The patient does not seem to [...] for the 11/05/2018 admission is complete. See [facility] admission navigator for prior to admission medications Medication history source reliability:Good Medication history interview source(s):Patient Medication history resources (including written lists, pill bottles, clinic record):Patient mailed in his medication list prior to surgery Primary pharmacy.[facility] Additional medication history information not noted on DONOR TECHNICIAN med list :None Time spent in [...] Bedtime 11/04/2018 at 2200 Yes Reported, Patient NING ANALYST documented in this encounter Procedure Notes Missael [...] management per anethesia/vasc surg Missael Garcia MD [phone] NING ANALYST documented in this encounter Consult Notes Kaleb Rodriguez NP - 11/05/2018 5:14 PM CSTAssociated Order(s): ORCHESTRA DIRECTOR IP CONSULT [facility] Consult Critical Care Service Date of [...] Code Status Full Code Primary Care Physician [facility] Chief Complaint S/p TEVAR History [...] IR Lumbar Drain Placement w Fluoro Narrative [facility] RADIOLOGY INTERVENTIONAL NEURORADIOLOGY PROCEDURAL NOTE FLUOROSCOPICALLY [...] CPT codes included for physician reference only: [id number] MISSAEL GARCIA MD Glucose by meter Result Value Ref Range Glucose 124 (H) 70 - 99 mg/dL NING ANALYST Associated attestation - Olive Bello MD - 11/05/2018 10:58 PM PLANNING ANALYST ICU STAFF: I have discussed Mr. Hendricks's [...] management per vascular surgery. Olive Bello MD #[id number] 11/05/18 Bill as Advanced Practice Provider only. Gurwinder Godoy MD - 11/05/2018 1:40 PM CST [facility] Vascular Medicine Consultation Date of Admission: 11/05/2018 Date of Consult (When I saw the patient): 11/05/18 Physician Supervisory Attestation: I have reviewed and discussed with the physician autopsy assistant their history, physical and plan and [...] consult Copy to Dr. Debbie Godoy MD ,[facility] Vascular Medicine 11/05/2018 Assessment & Plan 1. [...] 78 year old male Primary Care Physician [facility] History of Present Illness Speedy [...] Labs Lab Test 11/05/18 0655 A1C 5.2 NING ANALYST documented in this encounter Nursing Notes Isis Rivera, JOSE - 11/05/2018 8:40 AM CST Noted swelling left ankle NING ANALYST documented in this encounter Miscellaneous Notes Plan [...] sites soft, bruised, CMS intact. Voiding okay. NING ANALYST Plan of Care - Misty Villalobos RN - 11/08/2018 7:10 PM CST A/O x4. AVSS on RA. Tele NSR. Hydralazine given x1. Up SBA. Neuros intact. CMS intact. Groin sites, steri strips. Back site, moist drainage. Pulses, palpable, +2. Regular diet. Chapman removed at 1740, Due to void. NING ANALYST Provider Notification - Aura Crooks RN - 11/08/2018 11:37 AM CST MD NOTIFICATION Person Notified: MDA Notified Person's Name: Yeimi Notification Date/Time: 11/08/2017 1135 Notification Interaction: Paged physician Purpose of Notification: Pt remains to have drainage from lumbar drain site. Orders Received: MDA to come assess pt. NING ANALYST Plan of Care - Kristy Castañeda RN [...] access readiness for lumbar drain removal today. NING ANALYST Provider Notification - Kristy Castañeda RN - [...] assess pulling the drain. Kristy Castañeda RN NING ANALYST Plan of Care - Aura Crooks RN - 11/07/2018 6:17 PM CST Neuro: LUCAS- strength 5/5. PERRL. Complains of soreness in groin/hips from moving them too much. Ptup in chair for a hour and tolerated well. Ok'd with Anesthesia MD, Ensley, to get up in chair forno more [...] some blood in tubing- Anesthesia MD aware. NING ANALYST Plan of Care - Danette Peck RN - 11/07/2018 1:12 PM CST [id number] Continued with numbness bilateral top of thighs. [...] and dtr in room when Drs here. NING ANALYST Provider Notification - Ramiro Lozano RN - 11/07/2018 6:17 AM CST Paged vascular surgery fellow Ashanti regarding new numbness to anterior thighs. CSF has been drained, will begin 500ml bolus unless directed otherwise. NING ANALYST Plan of Care - Ramiro Lozano RN [...] clamped now. Daughter Raquel updated this morning. NING ANALYST Provider Notification - Ramiro Lozano RN - 11/07/2018 5:[address] Wang regarding new leg pain and ICP increase. Opening drain for 15ml CSF over 1 hr per order. NING ANALYST Plan of Care - Danette Peck RN - 11/06/2018 4:34 PM CST [id number] Neuro checks remain intact. Able to move [...] be retested for MRSA per infection control. NING ANALYST Plan of Care - Ramiro Lozano RN [...] this shift. Daughter Raquel updated this morning. NING ANALYST Plan of Care - Danette Peck RN - 11/05/2018 9:43 PM CST [id number] Neuro: intact. Able to move hips slightly [...] by physicians. Care transferred to next nurse. NING ANALYST Provider Notification - Ramiro Lozano RN - 11/05/2018 7:46 PM CST Notified fashion consultant sales regarding failure to meet MAP goal of 80, new orders received. NING ANALYST Op Note - Butch Brown MD - [...] descending aortic angiogram SURGEON: Butch Brown MD WELDER APPRENTICE ARC: Kannan Morse MD; Bessy aMs MD - Vascular Fellow ANESTHESIA: General FLUORO: [...] then able to upsized to a 6 Welsh sheath over a Bentson wire.The patient was [...] femoral artery and upsized to an 11 Welsh sheath. We then able to insert JULIANE [...] was removed and backfilled with a 16 Welsh dry seal on the left.At this point [...] superficial femoral artery access which was 6 Welsh sheath with an Angio-Seal closure device performed [...] the drain. Butch Brown MD Vascular Surgery NING ANALYST Brief Op Note - Bessy Mccray MD - 11/05/2018 12:29 PM CST [facility] Brief Operative Note Pre-operative diagnosis: DESCENDING [...] Palp DP bilaterally Complications: None. Implants: None. NING ANALYST Associated attestation - Butch Brown MD - 11/05/2018 1:09 PM PLANNING ANALYST Butch Brown MD IR Note - Gwen Rivas RN - 11/05/2018 10:27 AM CST Interventional Radiology Intra-procedural Nursing Note Patient Name: Speedy Hendricks Today's Date: November 05, 2018 Start Time: 849 End of procedure time: 904 Procedure: lumbar drain placement Report given to: Dr. See, anesthesia Time pt departs: 0920 Launch Check Out: n/a Other Notes: patient tolerated well. Drain connected to closed drainage system flushed with preservative free NS per Dr. Haro. 1mg Versed and 50mcg Fentanyl IV given for additional sedation (had received 4mg Versed and 100mcg Fentanyl in pre-op prior to arrival). SR on monitor .VSS. Patient taken back to pre-op bay in stable condition. Gwen Rivas RNoffice assistance Radiology NING ANALYST documented in this encounter Plan of Treatment Not on filedocumented as of this encounter Procedures Procedure Name Priority Date/Time Associated Comments Diagnosis CBC WITH PLATELETS & Routine 11/09/2018 7:41 AM Descending tho racic Results for this DIFFERENTIAL PLANNING ANALYST aortic aneurysm (H) procedur e are in the results section. COMPREHENSIVE Routine 11/09/2018 7:41 AM Descending thoracic R esults for this METABOLIC PANEL PLANNING ANALYST aortic aneurysm (H) proce dure are in the results section. MAGNESIUM Routine 11/08/2018 3:40 AM Descending thoracic Re sults for this PLANNING ANALYST aortic aneurysm (H) procedur e are in the results section. COMPREHENSIVE Routine 11/08/2018 3:40 AM Descending thoracic R esults for this METABOLIC PANEL PLANNING ANALYST aortic aneurysm (H) proce dure are in the results section. CBC WITH PLATELETS Routine 11/08/2018 3:40 AM Descending thora cic Results for this PLANNING ANALYST aortic aneurysm (H) procedur e are in the results section. CBC WITH PLATELETS STAT 11/07/2018 3:00 PM Descending thora cic Results for this PLANNING ANALYST aortic aneurysm (H) procedur e are in the results section. CBC WITH PLATELETS & Timed 11/07/2018 9:50 AM Descending tho racic Results for this DIFFERENTIAL PLANNING ANALYST aortic aneurysm (H) procedur e are in the results section. MAGNESIUM Routine 11/07/2018 9:50 AM Descending thoracic Re sults for this PLANNING ANALYST aortic aneurysm (H) procedur e are in the results section. BASIC METABOLIC PANEL Timed 11/07/2018 9:50 AM Descending th oracic Results for this PLANNING ANALYST aortic aneurysm (H) procedur e are in the results section. GLUCOSE BY METER Routine 11/07/2018 7:44 AM Descending thoraci c Results for this PLANNING ANALYST aortic aneurysm (H) procedur e are in the results section. GLUCOSE BY METER Routine 11/07/2018 3:49 AM Descending thoraci c Results for this PLANNING ANALYST aortic aneurysm (H) procedur e are in the results section. GLUCOSE BY METER Routine 11/07/2018 12:08 Descending thoracic Results for this AM PLANNING ANALYST aortic aneurysm (H) procedur e are in the results section. GLUCOSE BY METER Routine 11/06/2018 7:53 PM Descending thoraci c Results for this PLANNING ANALYST aortic aneurysm (H) procedur e are in the results section. GLUCOSE BY METER Routine 11/06/2018 11:02 Descending thoracic Results for this AM PLANNING ANALYST aortic aneurysm (H) procedur e are in the results section. GLUCOSE BY METER Routine 11/06/2018 7:38 AM Descending thoraci c Results for this PLANNING ANALYST aortic aneurysm (H) procedur e are in the results section. LACTIC ACID WHOLE Routine 11/06/2018 4:15 AM Descending thorac ic Results for this BLOOD PLANNING ANALYST aortic aneurysm (H) procedur e are in the results section. BASIC METABOLIC PANEL Routine 11/06/2018 4:15 AM Descending th oracic Results for this PLANNING ANALYST aortic aneurysm (H) procedur e are in the results section. CBC WITH PLATELETS Routine 11/06/2018 4:15 AM Descending thora cic Results for this PLANNING ANALYST aortic aneurysm (H) procedur e are in the results section. GLUCOSE BY METER Routine 11/06/2018 1:12 AM Descending thoraci c Results for this PLANNING ANALYST aortic aneurysm (H) procedur e are in the results section. MRSA MSSA PCR, NASAL STAT 11/05/2018 11:41 Descending thora cic Results for this SWAB PM PLANNING ANALYST aortic aneurysm (H) procedur e are in the results section. GLUCOSE BY METER Routine 11/05/2018 8:16 PM Descending thoraci c Results for this PLANNING ANALYST aortic aneurysm (H) procedur e are in the results section. GLUCOSE BY METER Routine 11/05/2018 4:39 PM Descending thoraci c Results for this PLANNING ANALYST aortic aneurysm (H) procedur e are in the results section. INR STAT 11/05/2018 4:35 PM Descending thoracic Re sults for this PLANNING ANALYST aortic aneurysm (H) procedur e are in the results section. LACTIC ACID WHOLE STAT 11/05/2018 4:35 PM Descending thorac ic Results for this BLOOD PLANNING ANALYST aortic aneurysm (H) procedur e are in the results section. BASIC METABOLIC PANEL STAT 11/05/2018 4:35 PM Descending th oracic Results for this PLANNING ANALYST aortic aneurysm (H) procedur e are in the results section. CBC WITH PLATELETS STAT 11/05/2018 4:35 PM Descending thora cic Results for this PLANNING ANALYST aortic aneurysm (H) procedur e are in the results section. IR THORACIC Routine 11/05/2018 12:09 Descending thoracic Resu lts for this ENDOVASCULAR STENT PM PLANNING ANALYST aortic aneurysm (H) pr ocedure are in GRAFT the results section. REPAIR, ANEURYSM, 11/05/2018 9:35 AM DESCENDING THORAC IC THORACIC AORTIC, PLANNING ANALYST AORTIC ANEURYSM ENDOVASCULAR Special Needs BLOOD TRANSFUSION ISSUE (RAR E ANTIBODIES) PT WILL DO A TYPE AND CROSS ON 11/03 JALEEL 10/28 IR LUMBAR DRAIN Routine 11/05/2018 9:10 AM Result s for this PLACEMENT W FLUORO PLANNING ANALYST procedure are in the results section. EKG 12-LEAD, TRACING STAT 11/05/2018 6:58 AM R esults for this ONLY PLANNING ANALYST procedure are i n the results section. POTASSIUM STAT 11/05/2018 6:55 AM Descending thoracic Re sults for this PLANNING ANALYST aortic aneurysm (H) procedur e are in the results section. LIPID PROFILE STAT 11/05/2018 6:55 AM Descending thoracic R esults for this PLANNING ANALYST aortic aneurysm (H) procedur e are in the results section. HEMOGLOBIN A1C STAT 11/05/2018 6:55 AM Descending thoracic Results for this PLANNING ANALYST aortic aneurysm (H) procedur e are in the results section. CREATININE STAT 11/05/2018 6:55 AM Descending thoracic Re sults for this PLANNING ANALYST aortic aneurysm (H) procedur e are in the results section. XR CHEST PORT 1 VIEW STAT 11/05/2018 6:40 AM R esults for this PLANNING ANALYST procedure are i n the results section. EKG CARDIAC - HIM 09/24/2018 12:00 AM SCAN PLANNING ANALYST documented in this encounter Results (ABNORMAL) CBC with platelets differential (11/09/2018 7:41 AM PLANNING ANALYST) Component Value Ref Test Analysis Performed At [facility] gist Range Method Time Signature WBC 9.3 4.0 - 11/09/2018 [facility] 11.0 8:06 AM [facility] 10e9/L [facility] RBC Count 3.55 (L) 4.4 - 11/09/2018 [facility] 5.9 8:06 AM [facility] [address] [place] [address] Hemoglobin 11.3 (L) 13.3 - 11/09/2018 [facility] 17.7 8:06 AM [facility] Hematocrit 33.7 (L) 40.0 - 11/09/2018 [facility] 53.0 % 8:06 AM [facility] MCV 95 78 - 100 11/09/2018 [facility] fl 8:06 AM [facility] MCH 31.8 26.5 - 11/09/2018 [facility] 33.0 pg 8:06 AM [facility] MCHC 33.5 31.5 - 11/09/2018 [facility] 36.5 8:06 AM [facility] RDW 13.9 10.0 - 11/09/2018 [facility] 15.0 % 8:06 AM [facility] Platelet Count 83 (L) 150 - 11/09/2018 [facility] 450 8:[address] Diff Method Manual 11/09/2018 [facility] Differential 8:31 AM [facility] % Neutrophils 85.0 % 11/09/2018 [facility] 8:31 AM [facility] % Lymphocytes 6.0 % 11/09/2018 [facility] 8:31 AM [facility] % Monocytes 7.0 % 11/09/2018 [facility] 8:31 AM [facility] % Eosinophils 2.0 % 11/09/2018 [facility] 8:31 AM [facility] % Basophils 0.0 % 11/09/2018 [facility] 8:31 AM [facility] Absolute 7.9 1.6 - 11/09/2018 [facility] Neutrophil 8.3 8:[address] Absolute 0.6 (L) 0.8 - 11/09/2018 [facility] Lymphocytes 5.3 8:[address] Absolute 0.7 0.0 - 11/09/2018 [facility] Monocytes 1.3 8:[address] Absolute 0.2 0.0 - 11/09/2018 [facility] Eosinophils 0.7 8:[address] Absolute 0.0 0.0 - 11/09/2018 [facility] Basophils 0.2 8:[address] RBC Morphology Consistent with 11/09/2018 [facility] reported results 8:31 AM [facility] Platelet Automated count 11/09/2018 [facility] Estimate confirmed. 8:31 AM [facility] morphology is normal. Specimen Anatomical Collection Method Collection Time Receive d Time (Source) Location / / Volume Laterality Blood specimen 11/09/2018 7:41 AM 019 7:51 (specimen) PLANNING ANALYST AM PLANNING ANALYST Dimas Chapman MD LAB - BLOOD ORDERABLES Performing Organization Address City/State/ZIP Code Phon e Number [facility] [address] [place] [address] [facility] [address] [place] [address], [place] [phone] (ABNORMAL) Comprehensive metabolic panel (11/09/2018 7:41 AM PLANNING ANALYST) athologist Signature Sodium 144 133 - 144 11/09/2018 [facility] mmol/L 8:11 AM [facility] Potassium 4.0 3.4 - 5.3 11/09/2018 [facility] mmol/L 8:11 AM [facility] Chloride 113 (H) 94 - 109 11/09/2018 [facility] mmol/L 8:11 AM [facility] Carbon Dioxide 22 20 - 32 11/09/2018 [facility] mmol/L 8:17 AM [facility] Anion Gap 9 3 - 14 11/09/2018 [facility] mmol/L 8:17 AM [facility] Glucose 94 70 - 99 11/09/2018 [facility] mg/dL 8:17 AM [facility] Urea Nitrogen 21 7 - 30 11/09/2018 [facility] mg/dL 8:17 AM [facility] Creatinine 1.24 0.66 - 11/09/2018 [facility] 1.25 mg/dL 8:17 AM [facility] GFR Estimate 56 (L) >60 11/09/2018 [facility] mL/min/{1. 8:17 AM [facility] 73_m2} HOSPITAL Comment: Non GFR Calc Starting 10/05/2018, serum creatinine ba sed estimated GFR (eGFR) will be calculated using the Chronic Kidney Dise ase Epidemiology Collaboration (CKD-EPI) equation. GFR Estimate If 65 >60 mL/min/{1.73_m2} 11/09/2018 8: 17 AM [facility] Comment: GFR Calc Starting 10/05/2018, serum creatinine ba sed estimated GFR (eGFR) will be calculated using the Chronic Kidney Dise ase Epidemiology Collaboration (CKD-EPI) equation. Calcium 8.4 (L) 8.5 - 10.1 11/09/2018 8:17 AM [facility] mg/dL [facility] Bilirubin Total 1.3 0.2 - 1.3 mg/dL 11/09/2018 8:19 AM [facility] Albumin 2.4 (L) 3.4 - 5.0 g/dL 11/09/2018 8:19 AM [facility] Protein Total 6.2 (L) 6.8 - 8.8 g/dL 11/09/2018 8:19 AM [facility] Alkaline Phosphatase 72 40 - 150 U/L 11/09/2018 8:19 AM [facility] ALT 17 0 - 70 U/L 11/09/2018 8:19 AM [facility] AST 15 0 - 45 U/L 11/09/2018 8:19 AM [facility] Specimen Anatomical Collection Method Collection Time Receive d Time (Source) Location / / Volume Laterality Blood specimen 11/09/2018 7:41 AM 019 7:51 (specimen) PLANNING ANALYST AM PLANNING ANALYST Dimas Chapman MD LAB - BLOOD ORDERABLES Performing Organization Address City/State/ZIP Code Phon e Number [facility] [address] [place] [address] [facility] [address] [address], [place] [phone] Magnesium Level scheduled every Thu (11/08/2018 3:40 AM PLANNING ANALYST) P athologist Signature Magnesium 1.7 1.6 - 2.3 11/08/2018 [facility] mg/dL 4:06 AM [facility] Specimen Anatomical Collection Method Collection Time Receive d Time (Source) Location / / Volume Laterality Blood specimen 11/08/2018 3:40 AM 019 3:46 (specimen) PLANNING ANALYST AM PLANNING ANALYST Dimas Chapman MD LAB - BLOOD ORDERABLES Performing Organization Address City/State/ZIP Code Phon e Number [facility] [address] [address] [facility] [address] [place] [address], [place] [phone] (ABNORMAL) Comprehensive metabolic panel (11/08/2018 3:40 AM PLANNING ANALYST) Analysis Performed At Patho logist Time Signature Sodium 142 133 - 144 11/08/2018 [place] mmol/L 3:58 AM [facility] Potassium 4.2 3.4 - 5.3 11/08/2018 [place] mmol/L 3:58 AM [facility] Chloride 111 (H) 94 - 109 11/08/2018 [place] mmol/L 3:58 AM [facility] Carbon Dioxide 22 20 - 32 11/08/2018 [place] mmol/L 4:04 AM [facility] Anion Gap 9 3 - 14 11/08/2018 [place] mmol/L 4:04 AM [facility] Glucose 164 (H) 70 - 99 11/08/2018 [place] mg/dL 4:04 AM [facility] Urea Nitrogen 20 7 - 30 11/08/2018 [place] mg/dL 4:04 AM [facility] Creatinine 1.29 (H) 0.66 - 11/08/2018 [place] 1.25 mg/dL 4:04 AM [facility] GFR Estimate 53 (L) >60 11/08/2018 [place] mL/min/{1. 4:04 AM [facility] 73_m2} HOSPITAL Comment: Non GFR Calc Starting 10/05/2018, serum creatinine ba sed estimated GFR (eGFR) will be calculated using the Chronic Kidney Dise [facility] Epidemiology Collaboration (CKD-EPI) equation. GFR Estimate If 62 >60 mL/min/{1.73_m2} 11/08/2018 4: 04 AM [facility] Comment: GFR Calc Starting 10/05/2018, serum creatinine ba sed estimated GFR (eGFR) will be calculated using the Chronic Kidney Dise [place] Epidemiology Collaboration (CKD-EPI) equation. Calcium 8.2 (L) 8.5 - 10.1 11/08/2018 4:04 AM [facility] mg/dL [facility] Bilirubin Total 1.1 0.2 - 1.3 mg/dL 11/08/2018 4:06 AM [facility] Albumin 2.6 (L) 3.4 - 5.0 g/dL 11/08/2018 4:06 AM [facility] Protein Total 6.0 (L) 6.8 - 8.8 g/dL 11/08/2018 4:06 AM [facility] Alkaline Phosphatase 62 40 - 150 U/L 11/08/2018 4:06 AM [facility] ALT 18 0 - 70 U/L 11/08/2018 4:06 AM [facility] AST 19 0 - 45 U/L 11/08/2018 4:06 AM [facility] Specimen Anatomical Collection Method Collection Time Receive d Time (Source) Location / / Volume Laterality Blood specimen 11/08/2018 3:40 AM 019 3:46 (specimen) PLANNING ANALYST AM [facility] Gurwinder Godoy MD LAB - BLOOD ORDERABLES Performing Organization Address City/State/ZIP Code Phon e Number [facility] [address] [address] [phone] [facility] [address] [address], [place] [phone] (ABNORMAL) CBC (AM Draw) (11/08/2018 3:40 AM PLANNING ANALYST) Analysis Performed At Patho logist Time Signature WBC 11.2 (H) 4.0 - 11.0 11/08/2018 [place] 10e9/L 3:50 AM [facility] RBC Count 3.62 (L) 4.4 - 5.9 11/08/2018 [place] 10e12/L 3:50 AM [facility] Hemoglobin 11.6 (L) 13.3 - 11/08/2018 [place] 17.7 g/dL 3:50 AM [facility] Hematocrit 34.5 (L) 40.0 - 11/08/2018 [facility] 53.0 % 3:50 AM [facility] MCV 95 78 - 100 11/08/2018 [facility] fl 3:50 AM [facility] MCH 32.0 26.5 - 11/08/2018 [facility] 33.0 pg 3:50 AM [facility] MCHC 33.6 31.5 - 11/08/2018 [facility] 36.5 g/dL 3:50 AM [facility] RDW 13.9 10.0 - 11/08/2018 [facility] 15.0 % 3:50 AM [facility] Platelet Count 82 (L) 150 - 450 11/08/2018 [facility] 10e9/L 3:50 AM [facility] Specimen Anatomical Collection Method Collection Time Receive d Time (Source) Location / / Volume Laterality Blood specimen 11/08/2018 3:40 AM 019 3:46 (specimen) PLANNING ANALYST AM PLANNING ANALYST Gurwinder Godoy MD LAB - BLOOD ORDERABLES Performing Organization Address City/State/ZIP Code Phon e Number [facility] [address] [address] [facility] [address] [address], [facility] [phone] (ABNORMAL) CBC with platelets (11/07/2018 3:00 PM PLANNING ANALYST) Analysis Performed At Patho logist Time Signature WBC 11.1 (H) 4.0 - 11.0 11/07/2018 [facility] 10e9/L 3:08 PM [facility] RBC Count 3.74 (L) 4.4 - 5.9 11/07/2018 [facility] 10e12/L 3:08 PM [facility] Hemoglobin 11.9 (L) 13.3 - 11/07/2018 [facility] 17.7 g/dL 3:08 PM [facility] Hematocrit 35.4 (L) 40.0 - 11/07/2018 [facility] 53.0 % 3:08 PM [facility] MCV 95 78 - 100 11/07/2018 [facility] fl 3:08 PM [facility] MCH 31.8 26.5 - 11/07/2018 [facility] 33.0 pg 3:08 PM [facility] MCHC 33.6 31.5 - 11/07/2018 [facility] 36.5 g/dL 3:08 PM [facility] RDW 14.1 10.0 - 11/07/2018 [facility] 15.0 % 3:08 PM [facility] Platelet Count 87 (L) 150 - 450 11/07/2018 [facility] 10e9/L 3:08 PM [facility] Specimen Anatomical Collection Method Collection Time Receive d Time (Source) Location / / Volume Laterality Blood specimen 11/07/2018 3:00 PM 019 3:05 (specimen) PLANNING ANALYST PM PLANNING ANALYST Bart Feliciano MD LAB - BLOOD ORDERABLES Performing Organization Address City/State/ZIP Code Phon e Number [facility] [address] [place] [address] [facility] [address] [place] [address], [place] [phone] Magnesium (11/07/2018 9:50 AM PLANNING ANALYST) P athologist Signature Magnesium 1.6 1.6 - 2.3 11/07/2018 [place] mg/dL 11:12 AM [facility] Specimen Anatomical Collection Method Collection Time Receive d Time (Source) Location / / Volume Laterality 11/07/2018 9:50 AM 9 PLANNING ANALYST 10:04 AM PLANNING ANALYST Gurwinder Godoy MD LAB - BLOOD ORDERABLES Performing Organization Address City/State/ZIP Code Phon e Number [facility] [address] [place] [address] [facility] [address] [place] [address], [place] [phone] (ABNORMAL) CBC with platelets differential (11/07/2018 9:50 AM PLANNING ANALYST) Patholo gist Method Time Signature WBC 10.4 4.0 - 11/07/2018 [facility] 11.0 10:13 AM [facility] 10e9/L [facility] RBC Count 3.63 (L) 4.4 - 5.9 11/07/2018 [facility] 10e12/L 10:13 AM [facility] Hemoglobin 11.5 (L) 13.3 - 11/07/2018 [facility] 17.7 g/dL 10:13 AM [facility] Hematocrit 34.3 (L) 40.0 - 11/07/2018 [facility] 53.0 % 10:13 AM [facility] MCV 95 78 - 100 11/07/2018 [facility] fl 10:13 AM [facility] MCH 31.7 26.5 - 11/07/2018 [facility] 33.0 pg 10:13 AM [facility] MCHC 33.5 31.5 - 11/07/2018 [facility] 36.5 g/dL 10:13 AM [facility] RDW 14.0 10.0 - 11/07/2018 [facility] 15.0 % 10:13 AM [facility] Platelet Count 82 (L) 150 - 450 11/07/2018 [facility] 10e9/L 10:37 AM [facility] Diff Method Automated 11/07/2018 [facility] Method 10:37 AM [facility] % Neutrophils 78.8 % 11/07/2018 [facility] 10:37 AM [facility] % Lymphocytes 6.2 % 11/07/2018 [facility] 10:37 AM [facility] % Monocytes 14.7 % 11/07/2018 [facility] 10:37 [facility] % Eosinophils 0.2 % 11/07/2018 [facility] 10:37 AM [facility] % Basophils 0.0 % 11/07/2018 [facility] 10:37 AM [facility] % Immature 0.1 % 11/07/2018 [facility] Granulocytes 10:37 AM [facility] Nucleated RBCs 0 0 /100 11/07/2018 [facility] 10:37 AM [facility] Absolute 8.2 1.6 - 8.3 11/07/2018 [facility] Neutrophil 10e9/L 10:37 AM [facility] Absolute 0.6 (L) 0.8 - 5.3 11/07/2018 [facility] Lymphocytes 10e9/L 10:37 AM [facility] Absolute 1.5 (H) 0.0 - 1.3 11/07/2018 [facility] Monocytes 10e9/L 10:37 AM [facility] Absolute 0.0 0.0 - 0.7 11/07/2018 [place] Eosinophils 10e9/L 10:37 AM [facility] Absolute 0.0 0.0 - 0.2 11/07/2018 [facility] Basophils 10e9/L 10:37 AM [facility] Abs Immature 0.0 0 - 0.4 11/07/2018 [place] Granulocytes 10e9/L 10:37 AM [facility] Absolute 0.0 11/07/2018 [place] Nucleated RBC 10:37 AM [facility] Ovalocytes Slight 11/07/2018 [facility] 10:37 AM [facility] Platelet Automated 11/07/2018 [place] Estimate count 10:37 AM [facility] confirmed. [facility] Platelet morphology is normal. Specimen Anatomical Collection Method Collection Time Receive d Time (Source) Location / / Volume Laterality Blood specimen 11/07/2018 9:50 AM 019 (specimen) PLANNING ANALYST 10:04 AM PLANNING ANALYST Gurwinder Godoy MD LAB - BLOOD ORDERABLES Performing Organization Address City/State/ZIP Code Phon e Number [facility] [address] [address] [phone] [facility] [address] [address], [facility] [phone] (ABNORMAL) Basic metabolic panel (11/07/2018 9:50 AM [facility]) Analysis Performed At Patho logist Time Signature Sodium 147 (H) 133 - 144 11/07/2018 [place] mmol/L 10:16 AM [facility] Potassium 4.1 3.4 - 5.3 11/07/2018 [place] mmol/L 10:16 AM [facility] Chloride 117 (H) 94 - 109 11/07/2018 [place] mmol/L 10:16 AM [facility] Carbon Dioxide 20 20 - 32 11/07/2018 [place] mmol/L 10:23 AM [facility] Anion Gap 10 3 - 14 11/07/2018 [place] mmol/L 10:23 AM [facility] Glucose 108 (H) 70 - 99 11/07/2018 [place] mg/dL 10:23 AM [facility] Urea Nitrogen 23 7 - 30 11/07/2018 [place] mg/dL 10:23 AM [facility] Creatinine 1.47 (H) 0.66 - 11/07/2018 [place] 1.25 mg/dL 10:23 AM [facility] GFR Estimate 46 (L) >60 11/07/2018 [place] mL/min/{1. 10:23 AM [facility] 73_m2} HOSPITAL Comment: Non GFR Calc Starting 10/05/2018, serum creatinine ba sed estimated GFR (eGFR) will be calculated using the Chronic Kidney Dise [facility] Epidemiology Collaboration (CKD-EPI) equation. GFR Estimate If 53 (L) >60 mL/min/{1.73_m2} 11/07/2018 10 :23 AM [place] [facility] Comment: GFR Calc Starting 10/05/2018, serum creatinine ba sed estimated GFR (eGFR) will be calculated using the Chronic Kidney Dise [facility] Epidemiology Collaboration (CKD-EPI) equation. Calcium 8.2 (L) 8.5 - 10.1 mg/dL 11/07/2018 10:23 AM [facility] Specimen Anatomical Collection Method Collection Time Receive d Time (Source) Location / / Volume Laterality Blood specimen 11/07/2018 9:50 AM 019 (specimen) PLANNING ANALYST 10:04 AM PLANNING ANALYST Gurwinder Godoy MD LAB - BLOOD ORDERABLES Performing Organization Address City/State/ZIP Code Phon e Number [facility] [address] [address] [facility] [address] [address], [facility] [phone] (ABNORMAL) Glucose by meter (11/07/2018 7:44 AM PLANNING ANALYST) P athologist Signature Glucose 112 (H) 70 - 99 11/07/2018 [facility] mg/dL 7:56 AM PLANNING ANALYST TEST, GLUCOSE Specimen Anatomical Collection Method Collection Time Receive d Time (Source) Location / / Volume Laterality 11/07/2018 7:44 AM 9 7:56 PLANNING ANALYST AM PLANNING ANALYST Juan Lewis MD LAB - BEAKER POCT Performing Organization Address City/State/ZIP Code Phon e Number [facility] POINT OF CARE TEST, GLUCOSE POINT OF CARE TEST, GLUCOSE (ABNORMAL) Glucose by meter (11/07/2018 3:49 AM PLANNING ANALYST) P athologist Signature Glucose 105 (H) 70 - 99 11/07/2018 [facility] mg/dL 4:01 AM PLANNING ANALYST TEST, GLUCOSE Specimen Anatomical Collection Method Collection Time Receive d Time (Source) Location / / Volume Laterality 11/07/2018 3:49 AM 9 4:01 PLANNING ANALYST AM PLANNING ANALYST Juan Lewis MD LAB - BEAKER POCT Performing Organization Address City/State/ZIP Code Phon e Number [facility] POINT OF CARE TEST, GLUCOSE POINT OF CARE TEST, GLUCOSE (ABNORMAL) Glucose by meter (11/07/2018 12:08 AM PLANNING ANALYST) P athologist Signature Glucose 119 (H) 70 - 99 11/07/2018 [facility] mg/dL 12:19 AM PLANNING ANALYST TEST, GLUCOSE Specimen Anatomical Collection Method Collection Time Receive d Time (Source) Location / / Volume Laterality 11/07/2018 12:08 11/07/2018 AM PLANNING ANALYST 12:19 AM PLANNING ANALYST Juan Lewis MD LAB - CAROLYN POCT Performing Organization Address City/State/ZIP Code Phon e Number [facility] POINT OF CARE TEST, GLUCOSE POINT OF CARE TEST, GLUCOSE (ABNORMAL) Glucose by meter (11/06/2018 7:53 PM PLANNING ANALYST) P athologist Signature Glucose 116 (H) 70 - 99 11/06/2018 [facility] mg/dL 8:04 PM PLANNING ANALYST TEST, GLUCOSE Specimen Anatomical Collection Method Collection Time Receive d Time (Source) Location / / Volume Laterality 11/06/2018 7:53 PM 9 8:04 PLANNING ANALYST PM PLANNING ANALYST Juan Lewis MD LAB - BEFOUZIA POCT Performing Organization Address City/State/ZIP Code Phon e Number [facility] POINT OF CARE TEST, GLUCOSE POINT OF CARE TEST, GLUCOSE (ABNORMAL) Glucose by meter (11/06/2018 11:02 AM PLANNING ANALYST) P athologist Signature Glucose 109 (H) 70 - 99 11/06/2018 [facility] mg/dL 11:13 AM PLANNING ANALYST TEST, GLUCOSE Specimen Anatomical Collection Method Collection Time Receive d Time (Source) Location / / Volume Laterality 11/06/2018 11:02 11/06/2018 AM PLANNING ANALYST 11:13 AM PLANNING ANALYST Juan YUAN - BEFOUZIA POCT Performing Organization Address City/State/ZIP Code Phon e Number [facility] POINT OF CARE TEST, GLUCOSE POINT OF CARE TEST, GLUCOSE (ABNORMAL) Glucose by meter (11/06/2018 7:38 AM PLANNING ANALYST) P athologist Signature Glucose 104 (H) 70 - 99 11/06/2018 [facility] mg/dL 7:50 AM PLANNING ANALYST TEST, GLUCOSE Specimen Anatomical Collection Method Collection Time Receive d Time (Source) Location / / Volume Laterality 11/06/2018 7:38 AM 9 7:50 PLANNING ANALYST AM PLANNING ANALYST Juan YUAN - BEFOUZIA POCT Performing Organization Address City/[facility]/ZIP Code Phon e Number [facility] POINT OF CARE TEST, GLUCOSE POINT OF CARE TEST, GLUCOSE Lactic acid whole blood (11/06/2018 4:15 AM PLANNING ANALYST) P athologist Signature Lactic Acid 1.4 0.7 - 2.0 11/06/2018 [place] mmol/L 4:40 AM [facility] Specimen Anatomical Collection Method Collection Time Receive d Time (Source) Location / / Volume Laterality Blood specimen 11/06/2018 4:15 AM 019 4:25 (specimen) PLANNING ANALYST AM PLANNING ANALYST Bessy Mccray MD LAB - BLOOD ORDERABLES Performing Organization Address City/[facility]/ZIP Code Phon e Number [facility] [address] [place] [address] [facility] [address] [place] [address], [place] [phone] (ABNORMAL) Basic metabolic panel (11/06/2018 4:15 AM PLANNING ANALYST) Analysis Performed At Patho logist Time Signature Sodium 142 133 - 144 11/06/2018 [facility] mmol/L 4:49 AM [facility] Potassium 4.4 3.4 - 5.3 11/06/2018 [place] mmol/L 4:49 AM [facility] Chloride 113 (H) 94 - 109 11/06/2018 [place] mmol/L 4:49 AM [facility] Carbon Dioxide 21 20 - 32 11/06/2018 [place] mmol/L 4:54 AM [facility] Anion Gap 8 3 - 14 11/06/2018 [place] mmol/L 4:54 AM [facility] Glucose 115 (H) 70 - 99 11/06/2018 [place] mg/dL 4:54 AM [facility] Urea Nitrogen 27 7 - 30 11/06/2018 [place] mg/dL 4:54 AM [facility] Creatinine 1.57 (H) 0.66 - 11/06/2018 [place] 1.25 mg/dL 4:54 AM [facility] GFR Estimate 42 (L) >60 11/06/2018 [place] mL/min/{1. 4:54 AM [facility] 73_m2} [facility]OSPITAL Comment: Non GFR Calc Starting 10/05/2018, serum creatinine ba sed estimated GFR (eGFR) will be calculated using the Chronic Kidney Dise [facility] Epidemiology Collaboration (CKD-EPI) equation. GFR Estimate If 49 (L) >60 mL/min/{1.73_m2} 11/06/2018 4: 54 AM [place] Black [facility] Comment: GFR Calc Starting 10/05/2018, serum creatinine ba sed estimated GFR (eGFR) will be calculated using the Chronic Kidney Dise [facility] Epidemiology Collaboration (CKD-EPI) equation. Calcium 7.8 (L) 8.5 - 10.1 mg/dL 11/06/2018 4:54 AM [facility] Specimen Anatomical Collection Method Collection Time Receive d Time (Source) Location / / Volume Laterality Blood specimen 11/06/2018 4:15 AM 019 4:25 (specimen) PLANNING ANALYST AM PLANNING ANALYST Bessy Mccray MD LAB - BLOOD ORDERABLES Performing Organization Address City/State/ZIP Code Phon e Number [facility] [address] [address] [phone] [facility] [address] [address], [place] [phone] (ABNORMAL) CBC with platelets (11/06/2018 4:15 AM PLANNING ANALYST) Analysis Performed At Patho logist Time Signature WBC 12.9 (H) 4.0 - 11.0 11/06/2018 [facility] 10e9/L 4:45 AM [facility] RBC Count 3.93 (L) 4.4 - 5.9 11/06/2018 [facility] 10e12/L 4:45 AM [facility] Hemoglobin 12.5 (L) 13.3 - 11/06/2018 [facility] 17.7 g/dL 4:45 AM [facility] Hematocrit 36.8 (L) 40.0 - 11/06/2018 [facility] 53.0 % 4:45 AM [facility] MCV 94 78 - 100 11/06/2018 [facility] fl 4:45 AM [facility] MCH 31.8 26.5 - 11/06/2018 [facility] 33.0 pg 4:45 AM [facility] MCHC 34.0 31.5 - 11/06/2018 [facility] 36.5 g/dL 4:45 AM [facility] RDW 13.2 10.0 - 11/06/2018 [facility] 15.0 % 4:45 AM [facility] Platelet Count 153 150 - 450 11/06/2018 [facility] 10e9/L 4:45 AM [facility] Specimen Anatomical Collection Method Collection Time Receive d Time (Source) Location / / Volume Laterality Blood specimen 11/06/2018 4:15 AM 019 4:25 (specimen) PLANNING ANALYST AM PLANNING ANALYST Bessy Mccray MD LAB - BLOOD ORDERABLES Performing Organization Address City/State/ZIP Code Phon e Number [facility] [address] [address] [facility] [address] [address], [place] [phone] (ABNORMAL) Glucose by meter (11/06/2018 1:12 AM PLANNING ANALYST) P athologist Signature Glucose 126 (H) 70 - 99 11/06/2018 [facility] mg/dL 1:24 AM PLANNING ANALYST TEST, GLUCOSE Specimen Anatomical Collection Method Collection Time Receive d Time (Source) Location / / Volume Laterality 11/06/2018 1:12 AM 9 1:24 PLANNING ANALYST AM PLANNING ANALYST Juan YUAN - BEAKER POCT Performing Organization Address City/State/ZIP Code Phon e Number [facility] POINT OF CARE TEST, GLUCOSE POINT OF CARE TEST, GLUCOSE Methicillin Resist/Sens S. aureus PCR (11/05/2018 11:41 PM PLANNING ANALYST) [facility] Method Time Signature Specimen Nares 11/05/2018 [facility] Description 11:45 PM PLANNING ANALYST [facility] Methicillin Negative NEG^Negat 11/06/2018 [facility] Resist/Sens S. shin 2:36 AM PLANNING ANALYST [facility] aureus [facility] Comment: MRSA Negative: SA Negative ??MRSA and St aphylococcus aureus target DNA not detected, presumed negative for MRSA and SA colonization or the number of bacteria present may be below the limit of detection for the assay. FDA approved assay performed using Qeexo G eneXpert(R) real-time PCR. Specimen (Source) Anatomical Collection Method Collection Time Re ceived Time Location / / Volume Laterality Nasal structure 11/05/2018 11:41 11/06/19 19 (body structure) PM PLANNING ANALYST Bessy Mccray MD LAB - MICRO GENERAL ORDERABL ES Performing Organization Address City/[facility]/ZIP Code Phon e Number [facility] [address] [place] [address] [facility] [address] [place] [address], [facility] [phone] (ABNORMAL) Glucose by meter (11/05/2018 8:16 PM PLANNING ANALYST) P athologist Signature Glucose 128 (H) 70 - 99 11/05/2018 [facility] mg/dL 8:28 PM PLANNING ANALYST TEST, GLUCOSE Specimen Anatomical Collection Method Collection Time Receive d Time (Source) Location / / Volume Laterality 11/05/2018 8:16 PM 9 8:28 PLANNING ANALYST PM PLANNING ANALYST Juan YUAN - BEFOUZIA POCT Performing Organization Address City/State/ZIP Code Phon e Number [facility] POINT OF CARE TEST, GLUCOSE POINT OF CARE TEST, GLUCOSE (ABNORMAL) Glucose by meter (11/05/2018 4:39 PM PLANNING ANALYST) P athologist Signature Glucose 124 (H) 70 - 99 11/05/2018 [facility] mg/dL 4:50 PM PLANNING ANALYST TEST, GLUCOSE Specimen Anatomical Collection Method Collection Time Receive d Time (Source) Location / / Volume Laterality 11/05/2018 4:39 PM 9 4:50 PLANNING ANALYST PM PLANNING ANALYST Juan Lewis MD LAB - BEAKER POCT Performing Organization Address City/State/ZIP Code Phon e Number [facility] POINT OF CARE TEST, GLUCOSE POINT OF CARE TEST, GLUCOSE (ABNORMAL) CBC with platelets (11/05/2018 4:35 PM PLANNING ANALYST) Analysis Performed At Patho logist Time Signature WBC 7.3 4.0 - 11.0 11/05/2018 [facility] 10e9/L 5:22 PM [facility] RBC Count 4.35 (L) 4.4 - 5.9 11/05/2018 [facility] 10e12/L 5:22 PM [facility] Hemoglobin 13.7 13.3 - 11/05/2018 [facility] 17.7 g/dL 5:22 PM [facility] Hematocrit 40.9 40.0 - 11/05/2018 [facility] 53.0 % 5:22 PM [facility] MCV 94 78 - 100 11/05/2018 [facility] fl 5:22 PM [facility] MCH 31.5 26.5 - 11/05/2018 [facility] 33.0 pg 5:22 PM [facility] MCHC 33.5 31.5 - 11/05/2018 [facility] 36.5 g/dL 5:22 PM [facility] RDW 13.1 10.0 - 11/05/2018 [facility] 15.0 % 5:22 PM [facility] Platelet Count 108 (L) 150 - 450 11/05/2018 [facility] 10e9/L 5:22 PM [facility] Specimen Anatomical Collection Method Collection Time Receive d Time (Source) Location / / Volume Laterality Blood specimen 11/05/2018 4:35 PM 019 5:17 (specimen) PLANNING ANALYST PM PLANNING ANALYST Bessy Mccray MD LAB - BLOOD ORDERABLES Performing Organization Address City/State/ZIP Code Phon e Number [facility] [address] [place] [address] [facility] [address] [place] [address], [place] [phone] INR (11/05/2018 4:35 PM PLANNING ANALYST) P athologist Signature INR 1.03 0.86 - 1.14 11/05/2018 [place] 5:33 PM [facility] Specimen Anatomical Collection Method Collection Time Receive d Time (Source) Location / / Volume Laterality Blood specimen 11/05/2018 4:35 PM 019 5:17 (specimen) PLANNING ANALYST PM PLANNING ANALYST Bessy Mccray MD LAB - BLOOD ORDERABLES Performing Organization Address City/State/ZIP Code Phon e Number [facility] [address] [place] [address] [facility] [address] [place] [address], [place] [phone] Lactic acid whole blood (11/05/2018 4:35 PM PLANNING ANALYST) P athologist Signature Lactic Acid 1.0 0.7 - 2.0 11/05/2018 [place] mmol/L 5:57 PM [facility] Specimen Anatomical Collection Method Collection Time Receive d Time (Source) Location / / Volume Laterality Blood specimen 11/05/2018 4:35 PM 019 5:18 (specimen) PLANNING ANALYST PM PLANNING ANALYST Bessy Mccray MD LAB - BLOOD ORDERABLES Performing Organization Address City/State/ZIP Code Phon e Number [facility] [address] [place] [address] [facility] [address] [place] [address], [place] [phone] (ABNORMAL) Basic metabolic panel (11/05/2018 4:35 PM PLANNING ANALYST) Analysis Performed At Patho logist Time Signature Sodium 143 133 - 144 11/05/2018 [place] mmol/L 5:38 PM [facility] Potassium 4.3 3.4 - 5.3 11/05/2018 [facility] mmol/L 5:38 PM [facility] Chloride 113 (H) 94 - 109 11/05/2018 [place] mmol/L 5:38 PM [facility] Carbon Dioxide 22 20 - 32 11/05/2018 [place] mmol/L 5:43 PM [facility] Anion Gap 8 3 - 14 11/05/2018 [place] mmol/L 5:43 PM [facility] Glucose 121 (H) 70 - 99 11/05/2018 [place] mg/dL 5:43 PM [facility] Urea Nitrogen 24 7 - 30 11/05/2018 [place] mg/dL 5:43 PM [facility] Creatinine 1.30 (H) 0.66 - 11/05/2018 [place] 1.25 mg/dL 5:43 PM [facility] GFR Estimate 53 (L) >60 11/05/2018 [place] mL/min/{1. 5:43 PM [facility] 73_m2} [facility]OSPITAL Comment: Non GFR Calc Starting 10/05/2018, serum creatinine ba sed estimated GFR (eGFR) will be calculated using the Chronic Kidney Dise [facility] Epidemiology Collaboration (CKD-EPI) equation. GFR Estimate If 61 >60 mL/min/{1.73_m2} 11/05/2018 5: 43 PM [facility] Comment: GFR Calc Starting 10/05/2018, serum creatinine ba sed estimated GFR (eGFR) will be calculated using the Chronic Kidney Dise [facility] Epidemiology Collaboration (CKD-EPI) equation. Calcium 8.6 8.5 - 10.1 mg/dL 11/05/2018 5:43 PM [facility] Specimen Anatomical Collection Method Collection Time Receive d Time (Source) Location / / Volume Laterality Blood specimen 11/05/2018 4:35 PM 019 5:17 (specimen) PLANNING ANALYST PM PLANNING ANALYST Bessy Mccray MD LAB - BLOOD ORDERABLES Performing Organization Address City/State/ZIP Code Phon e Number [facility] [address] [address] [facility] [address] [address], [place] [phone] IR Thoracic Endovascular Stent Graft (11/05/2018 12:09 PM PLANNING ANALYST) Anatomical Region Laterality Modality Chest Radio Fluoroscopy Specimen (Source) Anatomical Location Collection Method / Collectio n Time Received Time / Laterality Volume Impressions 11/06/2018 3:33 PM PLANNING ANALYST IMPRESSION: Successful deployment in 2 components for [...] KANNAN MORSE MD Narrative 11/06/2018 3:33 PM PLANNING ANALYST INTERVENTIONAL RADIOLOGY THORACIC ENDOVASCULAR STENT GRAFT ??11/05/2018 [...] tion. Over a series of maneuvers, 6 Welsh vascular sheath was placed. From left groin [...] tion. Over a series of maneuvers, 6 Welsh vascular sheath was placed. From left groin [...] Drain Placement w Fluoro (11/05/2018 9:10 AM PLANNING ANALYST) Anatomical Region Laterality Modality Spine Radio Fluoroscopy Specimen (Source) Anatomical Location Collection Method / Collectio n Time Received Time / Laterality Volume Narrative 11/05/2018 9:19 AM PLANNING ANALYST [facility] RADIOLOGY INTERVENTIONAL NEURORADIOLOGY PROCEDURAL NOTE FLUOROSCOPICALLY [...] codes included for physician referen ce only: [id number] MISSAEL GARCIA MD Procedure Note Missael Garcia MD - 11/05/2018For matting of this note might be different from the original. [facility] RADIOLOGY INTERVENTIONAL NEURORADIOLOGY PROCEDURAL NOTE FLUOROSCOPICALLY [...] codes included for physician referen ce only: [id number] MISSAEL GARCIA MD Butch Brown MD IMG IR ORDERABLES EKG 12-lead, tracing only (11/05/2018 6:58 AM PLANNING ANALYST) [facility] gist Method Time Signature Interpretation ECG Click View RADIOLOGY Image link RESULTS to view waveform and result Specimen (Source) Anatomical Collection Method Collection Time Re ceived Time Location / / Volume Laterality 11/05/2018 6:58 AM PLANNING ANALYST Juan Lewis MD ECG ORDERABLES Performing Organization Address City/State/ZIP Code Phon e Number RADIOLOGY RESULTS Potassium (11/05/2018 6:55 AM PLANNING ANALYST) athologist Signature Potassium 4.3 3.4 - 5.3 11/05/2018 [facility] mmol/L 7:15 AM PLANNING ANALYST [facility] Specimen Anatomical Collection Method Collection Time Receive d Time (Source) Location / / Volume Laterality Blood specimen 11/05/2018 6:55 AM 019 6:56 (specimen) PLANNING ANALYST AM PLANNING ANALYST Zakia Tobin MD LAB - BLOOD ORDERABLES Performing Organization Address City/State/ZIP Code Phon e Number [facility] [address] [place] [address] [phone] [facility] [address] [place] [address], [place] [phone] Lipid panel (11/05/2018 6:55 AM PLANNING ANALYST) Analysis Performed At Patho logist Time Signature Cholesterol 128 <200 mg/dL 11/05/2018 [facility] 7:20 AM [facility] Triglycerides 125 <150 mg/dL 11/05/2018 [facility] 7:21 AM [facility] HDL Cholesterol 59 >39 mg/dL 11/05/2018 [facility] 7:23 AM [facility] LDL Cholesterol 44 <100 mg/dL 11/05/2018 [facility] Calculated 7:23 AM [facility] Comment: Desirable: <100 mg/dl Non HDL Cholesterol 69 <130 mg/dL 11/05/2018 7:23 AM [facility] Specimen Anatomical Collection Method Collection Time Receive d Time (Source) Location / / Volume Laterality Blood specimen 11/05/2018 6:55 AM 019 6:56 (specimen) PLANNING ANALYST AM PLANNING ANALYST Juan Lewis MD LAB - BLOOD ORDERABLES Performing Organization Address City/State/ZIP Code Phon e Number [facility] [address] [place] [address] [facility] [address] [place] [address], [place] [phone] Hemoglobin A1c (11/05/2018 6:55 AM PLANNING ANALYST) P athologist Signature Hemoglobin A1C 5.2 0 - 5.6 % 11/05/2018 [facility] 7:30 AM [facility] Comment: Normal <5.7% Prediabetes 5.7-6.4% ??Diab etes 6.5% or higher - adopted from ADA consensus guidelines. Specimen Anatomical Collection Method Collection Time Receive d Time (Source) Location / / Volume Laterality Blood specimen 11/05/2018 6:55 AM 019 6:56 (specimen) PLANNING ANALYST AM PLANNING ANALYST Juan Lewis MD LAB - BLOOD ORDERABLES Performing Organization Address City/State/ZIP Code Phon e Number [facility] [address] [address] [facility] [address] [place] [address], [place] [phone] (ABNORMAL) Creatinine (11/05/2018 6:55 AM PLANNING ANALYST) athologist Signature Creatinine 1.52 (H) 0.66 - 11/05/2018 [place] 1.25 mg/dL 7:20 AM [facility] GFR Estimate 44 (L) >60 11/05/2018 [place] mL/min/{1. 7:20 AM [facility] 73_m2} [facility] Comment: Non GFR Calc Starting 10/05/2018, serum creatinine ba sed estimated GFR (eGFR) will be calculated using the Chronic Kidney Dise [facility] Epidemiology Collaboration (CKD-EPI) equation. GFR Estimate If 51 (L) >60 mL/min/{1.73_m2} 11/05/2018 7: 20 AM [facility] Comment: GFR Calc Starting 10/05/2018, serum creatinine ba sed estimated GFR (eGFR) will be calculated using the Chronic Kidney Dise [facility] Epidemiology Collaboration (CKD-EPI) equation. Specimen Anatomical Collection Method Collection Time Receive d Time (Source) Location / / Volume Laterality Blood specimen 11/05/2018 6:55 AM 019 6:56 (specimen) PLANNING ANALYST AM PLANNING ANALYST Juan Lewis MD LAB - BLOOD ORDERABLES Performing Organization Address City/State/ZIP Code Phon e Number [facility] [address] [address] [facility] [address] [place] [address], [place] [phone] XR Chest Port 1 View (11/05/2018 6:40 AM PLANNING ANALYST) Anatomical Region Laterality Modality Chest Digital Radiography Specimen (Source) Anatomical Location Collection Method / Collectio n Time Received Time / Laterality Volume Impressions 11/05/2018 6:58 AM PLANNING ANALYST IMPRESSION: No acute abnormality. TORI SANTIZO MD Narrative 11/05/2018 6:58 AM PLANNING ANALYST XR CHEST PORTABLE 1 VIEW ?? 11/05/2018 [...] CARDIAC - HIM SCAN (09/24/2018 12:00 AM PLANNING ANALYST) Specimen (Source) Anatomical Location Collection Method / [...] acetaminophen (TYLENOL) tablet Given 11/08/2018 11:04 PM PLANNING ANALYST 975 mg 975 mg 975 mg, Oral, EVERY 6 HOURS PRN, mild pain, fever, Starting on Thu11/05/18 at 1827, Maximum acetaminophen dose from all sources = 75 mg/kg/day not to exceed 4 grams/day. Given 11/08/2018 12:37 PM PLANNING ANALYST 975 mg Given 11/07/2018 11:03 AM PLANNING ANALYST 975 mg alum & mag hydroxide-simethicone (MYLANTA Given 11/08/2018 2:48 AM PLANNING ANALYST 30 mLs ES/MAALOX ES) suspension 30 mL 30 mL, Oral, EVERY 4 HOURS PRN, indigestion, Starting on Thu11/05/18 at 1510, Shake well. apixaban ANTICOAGULANT (ELIQUIS) tablet 2.5 Given 10/20 12:04 PM PLANNING ANALYST 2.5 mg mg 2.5 mg, Oral, 2 TIMES DAILY, First dose on Thu11/09/18 at 1115 atorvastatin (LIPITOR) tablet 40 mg Given 11/08/2018 8:20 PM PLANNING ANALYST 40 mg 40 mg, Oral, EVERY EVENING, First dose on Thu11/05/18 at 2000 Given 11/07/2018 7:49 PM PLANNING ANALYST 40 mg Given 11/06/2018 9:16 PM PLANNING ANALYST 40 mg BUPivacaine (MARCAINE) Given 11/05/2018 12:07 PM 20 mLs Operative Site/Surgical injection 0.5% PF PLANNING ANALYST Site PRN, Starting on Thu11/05/18 at 1207, Intra-procedure calcium carbonate (TUMS) chewable tablet Given 11/07/2018 10 :34 PM PLANNING ANALYST 1,000 mg 1,000 mg 1,000 mg, Oral, EVERY 2 HOURS PRN, heartburn, Starting on Thu11/06/18 at 0408, Do not give if calcium level greater than 10 mg/dL. Given 11/07/2018 12:05 AM PLANNING ANALYST 1,000 mg Given 11/06/2018 4:50 AM PLANNING ANALYST 1,000 mg cyclobenzaprine (FLEXERIL) tablet 5-10 m g Given 11/08/2018 3:58 AM PLANNING ANALYST 10 mg 5-10 mg, Oral, 3 TIMES DAILY PRN, muscle spasms, Starting on Thu11/07/18 at 1153 Given 11/07/2018 2:26 PM PLANNING ANALYST 5 mg diphenhydrAMINE (BENADRYL) injection 12. 5 mg 12.5 mg, Intravenous, EVERY 6 HOURS PRN, itching, Only give if patient unable to take PO., Starting on Thu11/05/18 at 151 0, Caution to be used when administering multiple CONFIGURATION MANAGEMENT ANALYST depressing meds within a sh ort time frame. For ordered IV doses 1-50 mg, give IV Push undiluted. Give each 25 mg over a minimum of 1 minute. Extend in non-emergency diphenhydrAMINE (BENADRYL) solution 12.5 mg 12.5 mg, Oral, EVERY 6 HOURS PRN, itchin g, Starting on Thu11/05/18 at 1510, Caution to be used when administering multiple CONFIGURATION MANAGEMENT ANALYST depressing meds within a short time frame. heparin 10,000 units in Given 11/05/2018 11:06 AM 200 mLs Operative Site/Surgical 1000 mL 0.9% sodium PLANNING ANALYST Site chloride PRN, Starting on Thu11/05/18 at 1106, Intra-procedure hydrALAZINE (APRESOLINE) injection 10-20 mg Given 11/08/2018 7:03 PM PLANNING ANALYST 10 mg 10-20 mg, Intravenous, EVERY 1 [...] over 1 minute. Given 11/08/2018 11:51 AM PLANNING ANALYST 20 mg Given 11/08/2018 3:36 AM PLANNING ANALYST 20 mg iopamidol (ISOVUE-300) IV Given 11/05/2018 12:42 PM 75 mLs Operative Site/Surgical solution 61% PLANNING ANALYST Site PRN, Starting on Thu11/05/18 at 1242, Intra-procedure labetalol (NORMODYNE/TRANDATE) injection 10-20 Given 0 11/08/2018 3:03 AM PLANNING ANALYST 10 mg mg 10-20 mg, Intravenous, EVERY [...] over 2 minutes. Given 11/08/2018 2:33 AM PLANNING ANALYST 20 mg Given 11/07/2018 10:35 PM PLANNING ANALYST 10 mg magnesium sulfate 4 g in 100 mL sterile water (premade) 4 g, Intravenous, Administer over 120 Minutes, EVERY 4 HOURS PRN, magnesium supplementation, Starting on 11/07/18 at 1152, For serum Mg++ less than 1.6 mg/dL Give 4 g and recheck magnesium level 2 hours aft er dose, and next AM. metoprolol tartrate (LOPRESSOR) tablet 5 0 mg Given 11/09/2018 8:28 AM PLANNING ANALYST 50 mg 50 mg, Oral, 2 TIMES DAILY, First dose on Thu11/08/18 at 2100, Hold for SBP < 90, HR < 50 Given 11/08/2018 8:20 PM PLANNING ANALYST 50 mg omeprazole (priLOSEC) CR capsule 20 mg Given 11/09/2018 6:33 AM PLANNING ANALYST 20 mg 20 mg, Oral, EVERY MORNING BEFORE BREAKFAST, First dose on Thu11/07/18 at 2345 Given 11/08/2018 8:22 AM PLANNING ANALYST 20 mg Given 11/07/2018 11:48 PM PLANNING ANALYST 20 mg ondansetron (ZOFRAN) injection 4 mg Given 11/07/2018 11:48 PM PLANNING ANALYST 4 mg 4 mg, Intravenous, EVERY 6 [...] half-tab 2.5-5 mg Given 11/08/2018 12:37 PM PLANNING ANALYST 5 mg 2.5-5 mg, Oral, EVERY 4 HOURS PRN, moderate to severe pain, Starting on Thu11/05/18 at 1724 Given 11/08/2018 6:19 AM PLANNING ANALYST 5 mg Given 11/07/2018 7:49 PM PLANNING ANALYST 5 mg sennosides (SENOKOT) tablet 8.6 mg Given 11/08/2018 3:36 AM PLANNING ANALYST 8.6 mg 8.6 mg, Oral, 2 TIMES DAILY PRN, constipation, Starting on Thu11/08/18 at 0250 sodium chloride (PF) 0.9% PF flush 3 mL Given 11/07/2018 4:12 PM PLANNING ANALYST 3 mLs 3 mL, Intracatheter, EVERY 8 HOURS, First dose on Thu11/05/18 at 1515, And Q1H PRN, to lock peripheral IV dormant line. Given 11/07/2018 11:34 AM PLANNING ANALYST 3 mLs Given 11/07/2018 12:06 AM PLANNING ANALYST 10 mLs terazosin (HYTRIN) capsule 5 mg Given 11/08/2018 9:21 PM PLANNING ANALYST 5 mg 5 mg, Oral, AT BEDTIME, First dose on Thu11/05/18 at 2200 documented in this encounter Active and Recently Administered Medications Times are shown in PLANNING ANALYST. Scheduled Medication Order 11/07/2018 11/08/2018 11/09/2018 apixaban [...] Caution to be used when administering multiple CONFIGURATION MANAGEMENT ANALYST depressing meds within a short time frame. For ordered IV doses 1-50 m g, give IV Push undiluted. Give each 25mg over a minimum of 1 minute. Extend in non-emergency diphenhydrAMINE (BENADRYL) solution 12.5 mg(Linked Group 1) 12.5 mg, Oral, EVERY 6 HOURS PRN, itchin g, Starting Thu11/05/18 at 1510, Caution to be used when administering multiple CONFIGURATION MANAGEMENT ANALYST depressing meds within a short time frame. [...]
Caution to be used when administering multiple CONFIGURATION MANAGEMENT ANALYST depressing meds within a short time frame.
Or diphenhydrAMINE (BENADRYL) injection 12.5 mgJump to med 12.5 mg, Intravenous, EVERY 6 HOURS PRN, itching, Only give if patient unable to take PO., Starting 11/05/18 at 1510
Caution to be used when administering multiple CONFIGURATION MANAGEMENT ANALYST depressing meds within a short time frame. [...] documented as of this encounter Care Teams Parts Counter Clerk Relationship Specialty Start Date End Date Clinic, [facility] Santos PCP - General 05/12/17 [address] [id number] documented as of this encounter
--- OUTSIDE RECORDS SUMMARY | 2022-06-20 08:53 | XMS_ITS | Encounter Summary ---
:1940 Author Organization [place] Address [address] [place] [address] Care Team Providers Name Role Phone Clinic, [facility] Primary Care Provider [phone] Reason for Referral - Closed Specialty Diagnoses / Procedures Referred By Contact Refer red To Contact Diagnoses Paroxysmal atrial fibrillation (H) Taran Lugo MD Procedures Zio Patch Monitor [address] [place] [address] Referral ID Status Reason Start Date Expiration Date Visits Requ ested Visits Authorized [id number] Closed 11/25/2017 11/25/2018 1 1 ER JOINTER RETURNER Reason for Visit (Routine) - Closed Specialty Diagnoses / Procedures Referred By Contact Refer red To Contact Cardiology Procedures Zzrh Cardiac Test Rscc ZIOPATCH MONITOR [address] [place], [place] [address] Phone: Fax: Referral ID Status Reason Start Date Expiration Date Visits Requ ested Visits Authorized [id number] Closed 11/17/2017 11/17/2018 1 1 Encounter Details Date Type Department Care Team Description 11/17/2017 Hospital Encounter [facility] Taran Lugo [facility] MD fibrillation (H) [address] [employer] [address] [place], [place] [phone] Social History Tobacco Use Types Packs/Day Years [...] Per EPIC and pt, pt's daughter called [facility]'s nurse and they are aware of the situation. I called pt back and he did mail the monitor yesterday. We will see what shows up and see if Brittney would like him to redo the monitor or keep what he gets from the one mailed back. ER JOINTER RETURNER Kiarra Rubalacva - 11/17/2017 3:49 PM CST Ziopatch heart monitor was set up. Patient stated that Dr. Quintanilla ordered the event monitor but Dr. Lugo wanted him to wear a ziopatch for 14 days. Patient was then set up with a ziopatch. ER JOINTER RETURNER documented in this encounter Plan of Treatment Not on filedocumented as of this encounter Procedures Procedure Name Priority Date/Time Associated Diagnosis Comme nts ZIO PATCH HOLTER Routine 11/22/2017 Paroxysmal atrial Result s for this fibrillation (H) procedure a re in the results section . documented in this encounter Results Zio Patch Monitor (11/22/2017) Narrative [facility] - 11/22/2017 [facility] [id number] [place] [id number] 11/17/2017 Patient: ??Speedy Burris [place] Chart: [id number] : ??1940 Age: ??77 year old Sex: ??male Procedure: ??ZioPatch Monitor. Blend Plant Operator performing hook-up: ??Kiarra Rubalcava Taran Gamboa MD CV CARDIAC SERVICES ORDERABL ES Performing Organization Address City/State/ZIP Code Phon e Number [facility] documented in this encounter Visit Diagnoses Diagnosis Paroxysmal atrial fibrillation (H) Atrial fibrillation documented in this encounter Care Teams Medical Claims Manager Relationship Specialty Start Date End Date [facility], [facility] PCP - General 05/12/[address] [place], [place] [phone] documented as of this encounter
--- OUTSIDE RECORDS SUMMARY | 2022-06-20 08:53 | XMS_ITS | Encounter Summary ---
:1940 Author Organization [place] Address [address] [place] [address] Care Team Providers Name Role Phone Clinic, [facility] Primary Care Provider [phone] Reason for Visit Reason Onset Date Comments Previsit 11/10/[address] Fatuma ng--visit 11/11/17 Encounter Details Date Type Department Care Team Description 11/10/2017 Telephone [facility] Heart Ebony Arnold, Previsit (New patient [facility] [place] RN for Dr Lugo--visit 5536 [facility] 11/11/17) [address] [phone] Social History Tobacco Use Types [...] reflect what patient is taking. JOSE Shahid ON THERAPIST documented in this encounter Plan of Treatment Not on filedocumented as of this encounter Visit Diagnoses Not on filedocumented in this encounter Care Teams Employment Legal Assistant Relationship Specialty Start Date End Date Clinic, [facility] PCP - General 05/12/[address] [place] [phone] documented as of this encounter
--- OUTSIDE RECORDS SUMMARY | 2022-06-20 08:53 | XMS_ITS | Encounter Summary ---
:1940 Author Organization [place] Address [address] [place] [address] Care Team Providers Name Role Phone [facility] Port[facility] Primary Care Provider [phone] Encounter Details Date Type Department Care Team [...] on filedocumented in this encounter Care Teams Sandwich Peddler Relationship Specialty Start Date End [facility] - [facility] [place] [id number] documented as of this encounter
--- OUTSIDE RECORDS SUMMARY | 2022-06-20 08:53 | XMS_ITS | Encounter Summary ---
:1940 Author Organization [place] Address [address] [place] [address] Care Team Providers Name Role Phone Clinic, [facility] Primary Care Provider [phone] Reason for Visit Surgical Procedure Inpatient (Routine) - Closed Specialty Diagnoses / Procedures Referred By Contact Refer red To Contact Surgery Diagnoses AAA Juan Lewis MD [place], Howard Leroy, Procedures *OR 51* DR. ALANIZ TO ASSIST WITH ENDOVASCULAR REPAIR OF AAA WITH [employer] GRAFT [address] [place] [address] [address] [place] [address] Phone: Fax: Referral ID Status Reason Start Date Expiration Date Visits Requ ested Visits Authorized [id number] Closed 09/28/2018 09/28/2019 1 1 Encounter Details Date Type Department Care Team Description 09/28/2018 Office Visit SX SURGERY CASES Juan Lewis MD [address] [place] [id number] Fellow, Sh Surg Cons Social History Tobacco [...] on filedocumented in this encounter Care Teams Women'S Swim Coach Relationship Specialty Start Date End Date [facility] PCP - General 05/12/[address] [place] [address] documented as of this encounter
--- OUTSIDE RECORDS SUMMARY | 2022-06-20 08:53 | XMS_ITS | Encounter Summary ---
:1940 Author Organization [place] Address [facility] [place] [address] Care Team Providers Name Role Phone Clinic, [facility] Primary Care Provider [phone] Encounter Details Date Type Department Care Team Description 07/30/[address] [facility] Vascular Sophie piper, Juan Nava MD Clinic [place] [address] [place] [address] [place] [address] [phone] Social History Tobacco Use Types Packs/Day Years [...] AAA WITH [employer] GRAFT Location of surgery: [facility] OR Date and time of surgery: 09/28/18 @ 12:30pm Surgeon: DR. VÁSQUEZ AND DR. ALANIZ Pre-Op Appt Date: PT TO SCHEDULE AT [facility] Post-Op Appt Date: PT TO SCHEDULE Packet sent out: YES ON 09/02/18 Pre-cert/Authorization completed: Yes Date: 09/14/18 STIGATOR INTERNAL REVENUE Telephone Encounter - Aruna Simmons - 07/30/2018 4:00 PM CDT Daughter Raquel called to schedule her dad's surgery in September. I took note of the dates they would like. I am waiting on the schedule for the Interventional Radiologist that Dr. Vásquez requested. Raquel understands I will follow up with her next week. .Aruna Simmons, Management Recruiter documented in this encounter Plan of Treatment Not on filedocumented as of this encounter Visit Diagnoses Not on filedocumented in this encounter Care Teams Bark Tanner Relationship Specialty Start Date End Date Clinic, [facility] PCP - General 05/12/[address] [place] [address] documented as of this encounter
--- OUTSIDE RECORDS SUMMARY | 2022-06-20 08:53 | XMS_ITS | Encounter Summary ---
:1940 Author Organization [facility] Address [address] [place] [address] Care Team Providers Name Role Phone [facility] Primary Care Provider [phone] Reason for Visit Reason Onset Date Comments Referral 05/14/2017 MTM Encounter Details Date Type Department Care Team Description 05/14/2017 Telephone [facility] Pharm D Clinic, Kehinde eagle ([place]) Project [address] [address] [phone] (Wo rk) Social History Tobacco Use Types [...] this time because they are not a [facility] patient, will route to MTM Pharmacist/Provider as an FYI. Thank you for the referral. Juanita Herndon MTM Coordinator documented in this encounter Plan of Treatment Not on filedocumented as of this encounter Visit Diagnoses Not on filedocumented in this encounter Care Teams Foot Miter Operator Relationship Specialty Start Date End Date [facility] PCP - General 05/12/[address] [place] [address] documented as of this encounter
--- OUTSIDE RECORDS SUMMARY | 2022-06-20 08:53 | XMS_ITS | Encounter Summary ---
:1940 Author Organization [place] Address [facility] [address] Care Team Providers Name Role Phone Clinic, 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) [address] [place] [address] [place], [place] [phone] [address] (Work) [phone] Social History Tobacco Use Types Packs/Day Years [...] Primary documented in this encounter Care Teams Tank Tender Relationship Specialty Start Date End Date [facility], [facility] PCP - General 05/12/[address] [place], [place] [id number] documented as of this encounter
--- OUTSIDE RECORDS SUMMARY | 2022-06-20 08:53 | XMS_ITS | Encounter Summary ---
:1940 Author Organization [place] Address [address] [facility] [place] [address] Care Team Providers Name Role Phone Clinic, [facility] Primary Care Provider [phone] Reason for Visit Auth/Cert Specialty Diagnoses / Procedures Referred By Contact Refer red To Contact Surgery Diagnoses ABDOMINAL AORTIC ANEURYSM Sh Periop Services Procedures ENDOVASCULAR REPAIR ANEURYSM ABDOMINAL AORTA [address] [place] [address] Phone: Referral ID Status Reason Start Date Expiration Date Visits Requ ested Visits Authorized [id number] 1 1 Encounter Details Date Type Department Care Team Description 09/28/2018 Anesthesia Event M [facility] Marylou Asher MD [facility] [address] [place] [address] [facility] Mattie Monahan, CASH APPLICATIONS CLERK HOSPITAL TELEVISION RENTAL CLERK [address] [place] [id number] [address] [place] [address] Anesthesia Record [...] Angela ts, Mattie Farrell, of Intubation: Easy; CASH APPLICATIONS CLERK HOSPITAL TELEVISION RENTAL CLERK CASH APPLICATIONS CLERK HOSPITAL TELEVISION RENTAL CLERK Airway Size: 8; Cuffed; Oral; Blade Type: Glidescope; Blade Size: 4; Place by: EA HOSPITAL TELEVISION RENTAL CLERK; Insertion Attempts: 1; Secured at (cm)to lip: 23 cm; Breath Sounds: Equal, clear and bilateral; Dentition: Intact, Unchanged; Grade View of Cords: 1; Airway Adjuncts: [place] scope Urethral Catheter 09/28/18; 1315; No; 09/28/18 [...] Asher MD September 28, 2018 3:11 PM TING WORKER SUPERVISOR Anesthesia Procedure Notes - Ling Asher MD - 09/28/2018 3:10 PM PRINTING WORKER SUPERVISOR Associated Order(s): A Line Catheter Placement [...] Yes IBP within 10% of NIBP: Yes TING WORKER SUPERVISOR Anesthesia Preprocedure Evaluation - Ling Asher MD [...] alternatives discussed with: Patient.. Ling Asher MD TING WORKER SUPERVISOR documented in this encounter Miscellaneous Notes [...] APRN CRNA September 28, 2018 3:06 PM TING WORKER SUPERVISOR documented in this encounter Plan of Treatment Not on filedocumented as of this encounter Procedures Procedure Name Priority Date/Time Associated Diagnosis Comme nts ANE A LINE CATHETER Routine 09/28/2018 3:10 PM PRINTING WORKER SUPERVISOR PLACEMENT Procedure Note - Ritu Asher MD [...] (CLEOCIN) infusion 900 Given 09/28/2018 1:18 PM PRINTING WORKER SUPERVISOR 900 mg mg Routine, 900 mg, Intravenous, PRE-OP/PRE-PROCEDURE, Starting on Thu09/28/18 at 1101, For 1 dose, Give first dose within 1 hour PRIOR to incision., Indications: Perioperative Pharmacoprophylaxis, Pre-procedure dexmedetomidine (PRECEDEX) 4 mcg/mL bolu s Bolus 09/28/2018 2:19 PM PRINTING WORKER SUPERVISOR 8 mcg CONTINUOUS PRN, Starting on Thu09/28/18 at 1216, Anesthesia Intra-op Bolus 09/28/2018 1:12 PM PRINTING WORKER SUPERVISOR 12 mcg Bolus 09/28/2018 1:02 PM PRINTING WORKER SUPERVISOR 8 mcg ePHEDrine injection Given 09/28/2018 1:57 PM PRINTING WORKER SUPERVISOR 5 mg PRN, Starting on Thu09/28/18 at 1345, Anesthesia Intra-op Given 09/28/2018 1:49 PM PRINTING WORKER SUPERVISOR 5 mg Given 09/28/2018 1:45 PM PRINTING WORKER SUPERVISOR 5 mg fentaNYL (PF) (SUBLIMAZE) injection Given 09/28/2018 1:34 PM PRINTING WORKER SUPERVISOR 50 mcg PRN, Administer over 3-5 Minutes, Starting on Thu09/28/18 at 1302, Anesthesia Intra-op Given 09/28/2018 1:02 PM PRINTING WORKER SUPERVISOR 50 mcg lactated ringers infusion New Bag 09/28/2018 1:11 PM PRINTING WORKER SUPERVISOR CONTINUOUS PRN, Anesthesia Intra-op, Starting on Thu09/28/18 at 1311, Until Thu09/28/18 at 1506 lidocaine 2% injection (MDV) Given 09/28/2018 1:02 PM PRINTING WORKER SUPERVISOR 100 mg PRN, Starting on Thu09/28/18 at 1302, Anesthesia Intra-op phenylephrine 0.2 mg/mL Rate/Dose Change 09/28/2018 2:17 0.1 mcg/kg /min 2.54 mL/hr (mcg/kg/min) drip PM PRINTING WORKER SUPERVISOR CONTINUOUS PRN, Starting on Thu09/28/18 at 1406, Anesthesia Intra-op Rate/Dose Change 09/28/2018 2:12 PM PRINTING WORKER SUPERVISOR 0.15 mcg/kg/min 3.82 mL/hr New Bag 09/28/2018 2:06 PM PRINTING WORKER SUPERVISOR 0.25 mcg/kg/min 6.36 mL/hr propofol (DIPRIVAN) infusion New Bag 09/28/2018 1:11 PM 35 mcg/kg/min 17.8 mL/hr Intravenous, CONTINUOUS PRN, PRINTING WORKER SUPERVISOR Starting on Thu09/28/18 at 1311, Anesthesia Intra-op propofol (DIPRIVAN) injection 10 mg/mL v ial Given 09/28/2018 1:02 PM PRINTING WORKER SUPERVISOR 200 mg PRN, Starting on Thu09/28/18 at 1302, Anesthesia Intra-op rocuronium (ZEMURON) injection Given 09/28/2018 1:02 PM PRINTING WORKER SUPERVISOR 50 mg PRN, Starting on Thu09/28/18 at 1302, Anesthesia Intra-op vecuronium (NORCURON) injection Given 09/28/2018 2:17 PM PRINTING WORKER SUPERVISOR 2 mg PRN, Starting on Thu09/28/18 at 1334, Anesthesia Intra-op Given 09/28/2018 1:34 PM PRINTING WORKER SUPERVISOR 2 mg documented in this encounter Care Teams Drugless Physician Relationship Specialty Start Date End Date Clinic, [facility] PCP - General 05/12/17 [address] [phone] documented as of this encounter
--- OUTSIDE RECORDS SUMMARY | 2022-06-20 08:53 | XMS_ITS | Encounter Summary ---
:1940 Author Organization [place] Address [address] [place] [address] Care Team Providers Name Role Phone Clinic, [facility] Primary Care Provider [phone] Reason for Referral Diagnostic Imaging CT Scan - Closed Specialty Diagnoses / Procedures Referred By Contact Refer red To Contact Diagnoses Abdominal aortic aneurysm (H) Juan Lewis MD Procedures CTA Abdomen Pelvis with Contrast [address] [place] [address] Referral ID Status Reason Start Date Expiration Date Visits Requ ested Visits Authorized [id number] Closed 06/03/2018 06/03/2019 1 1 Reason for Visit Diagnostic Imaging CT Scan - Closed Specialty Diagnoses / Procedures Referred By Contact Refer red To Contact Diagnoses Abdominal aortic aneurysm (H) Juan Lewis MD Procedures CTA Abdomen Pelvis with Contrast [address] [place] [address] Referral ID Status Reason Start Date Expiration Date Visits Requ ested Visits Authorized [id number] Closed 06/03/2018 06/03/2019 1 1 Encounter Details Date Type Department Care Team Description 06/07/2018 Hospital Encounter [facility] Juan Lewis Ab dominal aortic [facility] MD Elijah aneurysm (H) [address] [place] [address] [address] [place] [address] [phone] Social History Tobacco Use Types Packs/Day Years [...] dose documented in this encounter Care Teams Consumer Loan Manager Relationship Specialty Start Date End Date [facility] Port[facility] PCP - General 05/12/[address] [place] [address] documented as of this encounter
--- OUTSIDE RECORDS SUMMARY | 2022-06-20 08:53 | XMS_ITS | Encounter Summary ---
:1940 Author Organization [place] Address [address] [place] [address] Care Team Providers Name Role Phone Clinic, [facility] Primary Care Provider [phone] Reason for Visit Reason Onset Date Comments Medication Question 05/13/2017 meds Encounter Details Date Type Department Care Team Description 05/13/2017 Telephone [facility] Heart Abimbola Brown M edication Question Clinic Tram GARCIA (meds) [address] [facility] [address] [place] [address] Social History Tobacco Use Types Packs/Day [...] and LM for her to call this account underwriter back. JNelsonRN documented in this encounter Plan of Treatment Not on filedocumented as of this encounter Visit Diagnoses Not on filedocumented in this encounter Care Teams Protection Manager Relationship Specialty Start Date End Date Clinic, [facility] PCP - General 05/12/17 [address] [place] [address] documented as of this encounter
--- OUTSIDE RECORDS SUMMARY | 2022-06-20 08:53 | XMS_ITS | Encounter Summary ---
:1940 Author Organization [place] Address [address] [place] [address] Care Team Providers Name Role Phone Clinic, [facility] Primary Care Provider [phone] Reason for Visit Reason Onset Date Comments Referral 05/21/2018 Encounter Details Date Type Department Care Team Description 05/21/2018 [facility] Cindy Taylor, passenger barge master Tram [address] [address] Social History Tobacco Use Types [...] 05/21/2018 4:03 PM CDT Pt referred to [facility] via fax by Marija Ramirez MD for known AAA increased in size to 4.4X4.6 cm- pt has known about AAA for past 55 years and has monitored it with annual US. US done on 05/17/18 in care everywhere from [facility]. Pt needs to be scheduled for consult with Dr. Lewis. Will route to scheduling to coordinate an appointment within the next week. SHASTA Chand, RN documented in this encounter Plan of Treatment Not on filedocumented as of this encounter Visit Diagnoses Not on filedocumented in this encounter Care Teams Supervisor Joiners Relationship Specialty Start Date End Date [facility], [facility] PCP - General 05/12/[address] [place] [address] documented as of this encounter
--- OUTSIDE RECORDS SUMMARY | 2022-06-20 08:53 | XMS_ITS | Encounter Summary ---
:1940 Author Organization [place] Address [address] [place] [address] Care Team Providers Name Role Phone Clinic, [facility] Primary Care Provider [phone] Reason for Visit Reason Onset Date Comments Hr Specialist 11/23/2017 Encounter Details Date Type Department Care Team Description 11/23/2017 Telephone [facility] Heart Erica Saldana, Hr Specialist Clinic Tram GARCIA [address] [facility] [address] [place] [address] Social History Tobacco Use Types [...] Olive Saldana RN - 11/27/2017 4:02 PM SALT MINER Call to daughter; Ed was seen again in the ED on 11-15-17, 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 Eliquis was started by Dr Quintanilla/ Eusebia MINER Telephone Encounter - Taran Lugo MD - [...] if he is on one. Thanks, qp MINER Telephone Encounter - Olive Saldana RN - 11/23/2017 2:47 PM SALT MINER Call from daughterRaquel. States her dad wore a ZioPatch ordered by Dr Lugo to assess AF burden (ischemic/infarct areas seen in the brains). Daughter states the monitor was worn for 4 days (preferred2 weeks); it fell off she feels d/t the hair on his chest. Will note to Dr Lugo to advise re: havinganother placed. SueLangenbrunnerRN MINER documented in this encounter Plan of Treatment Not on filedocumented as of this encounter Visit Diagnoses Not on filedocumented in this encounter Care Teams Round Boner Relationship Specialty Start Date End Date [facility], [facility] PCP - General 05/12/[address] [place] [address] documented as of this encounter
--- OUTSIDE RECORDS SUMMARY | 2022-06-20 08:53 | XMS_ITS | Encounter Summary ---
:1940 Author Organization [place] Address [facility] [place] [address] Care Team Providers Name Role Phone [facility], [facility] Primary Care Provider [phone] Reason for Referral - Closed Specialty Diagnoses / Procedures Referred By Contact Refer red To Contact Diagnoses Paroxysmal atrial fibrillation (H) Radha Galan MD Procedures Zio Patch Monitor [address] [place] [address] Referral ID Status Reason Start Date Expiration Date Visits Requ ested Visits Authorized [id number] Closed 11/25/2017 11/25/2018 1 1 GER FIELD INVESTIGATIONS Reason for Visit Reason Comments Atrial Fib new Dx - Closed Specialty Diagnoses / Procedures Referred By Contact Refer red To Contact Diagnoses Paroxysmal atrial fibrillation (H) Radha Galan MD [address] [place] [address] Referral ID Status Reason Start Date Expiration Date Visits Requ ested Visits Authorized [id number] Closed 06/11/2017 06/11/2018 1 1 Encounter Details Date Type Department Care Team Description 11/11/[address] [facility] Radha Galan [facility] atrial Heart Clinic Tram WEL[place] fibrillation (H) [address] [facility] [address] [place] [address] [place] [address] [phone] Social History Tobacco Use Types Packs/Day Years [...] Comments Blood Pressure 146/78 11/11/2017 8:56 AM MANAGER FIELD INVESTIGATIONS Pulse 54 11/11/2017 8:56 AM MANAGER FIELD INVESTIGATIONS Temperature - - Respiratory Rate - - Oxygen Saturation - - Inhaled Oxygen Concentration - - Weight 88 kg (194 lb) 11/11/2017 8:56 AM MANAGER FIELD INVESTIGATIONS Height 170.2 cm (5' 7.01) 11/11/2017 8:56 AM MANAGER FIELD INVESTIGATIONS Body Mass Index 30.38 11/11/2017 8:56 AM MANAGER FIELD INVESTIGATIONS documented in this encounter Progress Notes Radha [...] discharged on amiodarone and did see a industrial pipefitter journeyman over at [facility] for followup. [...] difficult to control and has seen a campaign analyst for that as well as for his [...] to see us in a year in [facility] to his convenience, as the patient does live in that area. We will notify the patient regarding results of the Zio Patch monitor and have him follow up with you or my partners in a year from now. RADHA GALAN MD MT: [id number] Name: SPEEDY HENDRICKS Account: [id number] : 1940 Service Date: 11/11/2017 Document: [id number] GER FIELD INVESTIGATIONS Radha Galan MD - 11/11/2017 8:45 AM CST HPI and Plan: See dictation [id number] Orders Placed This Encounter Procedures ??? EKG [...] Galan, MD [address] [place] [address] GER FIELD INVESTIGATIONS documented in this encounter Plan of Treatment Not on filedocumented as of this encounter Procedures Procedure Name Priority Date/Time Associated Diagnosis Comme nts EKG 12-LEAD Routine 11/12/2017 10:13 Paroxysmal atrial Result s for this COMPLETE W/READ - AM MANAGER FIELD INVESTIGATIONS fibrillation (H) proced ure are in CLINICS the results section. documented in this encounter Results Zio Patch Monitor (11/22/2017) Narrative [facility] - 11/22/2017 [facility] [address] [facility] [address] [facility] [address] 11/17/2017 Patient: ??Speedy Hendricks Chart: [id number] : ??1940 Age: ??77 year old Sex: ??male Procedure: ??ZioPatch Monitor. Heel Seat Fitter performing hook-up: ??Kiarra Rubalcava Radha Gamboa MD CV CARDIAC SERVICES ORDERABL ES Performing Organization Address City/State/ZIP Code Phon e Number [facility] EKG 12-lead complete w/read - Clinics (performed today) (11/12/2017 10:13 AM MANAGER FIELD INVESTIGATIONS) Narrative This result has an attachment that is no t available. Radha Gamboa MD ECG ORDERABLES documented in this encounter Visit Diagnoses Diagnosis Paroxysmal atrial fibrillation (H) Atrial fibrillation Paroxysmal atrial fibrillation (H) Atrial fibrillation documented in this encounter Care Teams Fish Bin Tender Relationship Specialty Start Date End Date Clinic, [facility] PCP - General 05/12/[address] [place] [address] documented as of this encounter
--- OUTSIDE RECORDS SUMMARY | 2022-06-20 08:53 | XMS_ITS | Encounter Summary ---
:1940 Author Organization [place] Address [facility] [place] [address] Care Team Providers Name Role Phone Clinic, [facility] Primary Care Provider [phone] Reason for Visit Reason Onset Date Comments Appointment 06/18/2018 Encounter Details Date Type Department Care Team Description 06/18/2018 Telephone [facility] Juan Delcid MD Appointment [facility] [place] [address] [place] [id number] [place] [id number] [phone] Social History Tobacco Use Types Packs/Day Years [...] only with Dr. Lewis on 07/01/18 in [facility]. Pt had no further questions at this [...] on filedocumented in this encounter Care Teams Toll Lineman Relationship Specialty Start Date End Date [facility], [facility]hinde [facility] PCP - General 05/12/[address] [place] [address] documented as of this encounter
--- OUTSIDE RECORDS SUMMARY | 2022-06-20 08:53 | XMS_ITS | Encounter Summary ---
:1940 Author Organization [facility] Address [address] [place] [id number] Care Team Providers Name Role Phone Clinic, [facility] Primary Care Provider [phone] Reason for Visit Reason Comments Transient Ischemic Attack Encounter Details Date Type Department Care Team Description 11/14/2017 - [facility] brittani Stauffer MD [facility] [address] [place] [address] Transient cerebral ischemia, unspecified type (Primary Dx); 11/15/2017 Anders Jamie Bryan MD [address] [place] [address] Weakness on right side of face; Dept Uncontrolled hypertension [address] [place] [address] Social History Tobacco Use Types [...] Comments Blood Pressure 157/73 11/15/2017 11:35 AM PAPER BOX CUTTER Pulse 54 11/14/2017 11:13 PM P[facility]ER BOX CUTTER Temperature 35.8 ??C (96.5 ??F) 11/15/2017 11:35 AM P[facility]OX C[facility]TER Respiratory Rate 18 11/15/2017 11:35 AM P[facility]ER BOX CUTTER Oxygen Saturation 97% 11/15/2017 11:35 AM P[facility]ER BOX CUTTER Inhaled Oxygen Concentration - - Weight 88.9 kg (196 lb) 11/15/2017 2:04 AM P[facility]ER BOX CUTTER Height 177.8 cm (5' 10) 11/15/2017 2:04 AM P[facility]ER BOX CUTTER Body Mass Index 28.12 11/15/2017 2:04 AM P[facility]ER BOX CUTTER documented in this encounter Discharge Summaries Luis Antonio Quintanilla MD - 11/15/2017 11:18 AM CST [facility] Discharge Summary Name: Speedy Hendricks Date of : 1940 Age: [age] year old Date of Discharge: 11/15/2017 Date of Admission: 11/14/2017 Primary Care Provider: Kehinde Portillo [place] Discharge Physician: Luis Antonio Quintanilla MD Discharging [...] with NOAC. I also spoke with his Labor Custodian (Dr. Wilson) who agreed with starting lisinopril. [...] 50 Minutes. Luis Antonio Quintanilla MD Pager: [phone] R BOX CUTTER documented in this encounter Medications at Time [...] placed in patient's chart. 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 Continues on 81mg aspirin and metoprolol 50mg bid. AC refused by patient/family due to enlarging AAA. -continue aspirin -continue metoprolol 50mg bid 4. Hx cardiac arrest: suspected due to mscontin buildup in setting of CKD. Hospitalized at [facility] 04/2017. Has been doing quite well since. 5. AAA: enlarging and up to 4.2cm when last checked. Due for repeat US next month. Father from AAA at age 61. 6. HTN: SBP elevated here initially to 185/99 now down to 140-150s in ED without intervention. 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 Lift room needed: No. Bariatric: No Research Quality Assurance Specialist Needed: No Isolation: No. Infection: Not Applicable. [...] is able to stand, good equal bilateral machine cell tuber, speech clear, gcs 15, AA&Ox3. Tests Performed: [...] chloride BOLUS (0 mLs Intravenous Stopped 11/14/17 1692) iopamidol (ISOVUE-370) solution 500 mL (120 mLs Intravenous Given 11/14/17 4898) Drips infusing: No For the majority of [...] hardware foot Thoracic surgery, right lung surgery [place] teeth extraction Family History: History reviewed. No [...] Screening for cardiovascular disease. Rate 58 bpm. AR interval 184 ms. QRS duration 82 ms. [...] focal stenosis of the left P2 segment POST DOCTORAL FELLOW with a small trickle of contrast extending [...] Dr. Arriaga of the radiology service from [facility] regarding patient's presentation, findings, and [...] observations and the provider's statements to me. [facility] Damian Mark MD 11/15/17 0149 R BOX CUTTER documented in this encounter Miscellaneous Notes Plan [...] with: daughter OBSERVATION patient END time: 1210 R BOX CUTTER Plan of Care - Mitra Joshi OT - 11/15/2017 9:39 AM CST Problem: Patient Care Overview Goal: Plan of Care/Patient Progress Review OT: Orders received and chart reviewed. Discussed with treatment team including physical therapist. No Ip OT needs at this time. Will complete orders R BOX CUTTER Plan of Care - Brittany Alcantar, PT - 11/15/2017 9:23 AM CST Problem: Patient Care Overview Goal: Plan of Care/Patient Progress Review PT: Received orders for evaluation and treatment; per chart review and Obs team, no inpatient therapy needs at this time (issues have resolved). Will complete therapy orders. R BOX CUTTER Plan of Care - Ca Major RN - 11/15/2017 8:00 AM CST Problem: Patient Care Overview Goal: Plan of Care/Patient Progress Review PRIMARY DIAGNOSIS: TIA R/O OUTPATIENT/OBSERVATION GOALS TO BE MET BEFORE DISCHARGE: 1. Orthostatic performed: No 2. Diagnostic testing complete & at baseline neurologic testing: Yes 3. Cleared by consultants (if involved): No 4. Interpretation of cardiac rhythm per voip network technician: SR 5. Tolerating adequate PO diet and medications: Yes 6. Return to near baseline physical activity or neurologic status: Yes Coffee Maker Nurse Safe discharge environment identified: Yes Barriers to discharge: Yes Entered by: Ca Major 11/15/2017 Please review provider order for any additional goals. Nurse to notify provider when observation goals have been met and patient is ready for discharge. VSS, up independent, A&Ox4, steady gait, denies dizziness, reports 5/10 headache, improved aftertylenol given management lecturer, denies N/T, plan for MRI this AM, neuro consult, daughter at bedside, will continue to monitor and provide supportive cares. R BOX CUTTER Plan of Care - Debra Araujo RN - 11/15/2017 2:30 AM CST Problem: Patient Care Overview Goal: Plan of Care/Patient Progress Review Outcome: Improving ROOM # 226 Living Situation (if not independent, order SW consult): lives independently Facility name: director of personnel: daughters listed on chart Activity level at baseline: ind Activity level on admit: ind Patient registered to observation; given Patient Bill of Rights; given the opportunity to ask questions about observation status and their plan of care. Patient has been oriented to the observation room, bathroom and call light is in place. Discussed discharge goals and expectations with patient/family. R BOX CUTTER documented in this encounter Plan of Treatment Not on filedocumented as of this encounter Procedures Procedure Name Priority Date/Time Associated Comments Diagnosis MR BRAIN W/O & W Routine 11/15/2017 9:15 AM Resul ts for this CONTRAST PAPER BOX CUTTER procedure are i n the results section. BASIC METABOLIC PANEL Routine 11/15/2017 6:37 AM Weakness on r ight Results for this PAPER BOX CUTTER side of face procedure are i n the results section. EKG 12-LEAD, TRACING Routine 11/15/2017 2:08 AM R esults for this ONLY PAPER BOX CUTTER procedure are i n the results section. CT HEAD W CONTRAST STAT 11/14/2017 11:58 Resul ts for this PM PAPER BOX CUTTER procedure are i n the results section. CTA HEAD NECK W STAT 11/14/2017 11:53 Results for this CONTRAST PM PAPER BOX CUTTER procedure are i n the results section. CT HEAD W/O CONTRAST STAT 11/14/2017 11:39 Res ults for this PM PAPER BOX CUTTER procedure are i n the results section. CBC WITH PLATELETS & Routine 11/14/2017 11:29 Res ults for this DIFFERENTIAL PM PAPER BOX CUTTER procedure are i n the results section. TROPONIN I Routine 11/14/2017 11:29 Results for this PM P[employer]ER BOX CUTTER procedure are i n the results section. INR Routine 11/14/2017 11:29 Results for this PM PAPER BOX CUTTER procedure are i n the results section. PARTIAL THROMBOPLASTIN Routine 11/14/2017 11:29 R esults for this TIME PM PAPER BOX CUTTER procedure are i n the results section. BASIC METABOLIC PANEL Routine 11/14/2017 11:29 Re sults for this PM PAPER BOX CUTTER procedure are i n the results section. EKG 12-LEAD, TRACING STAT 11/14/2017 11:22 Res ults for this ONLY PM PAPER BOX CUTTER procedure are i n the results section. documented in this encounter Results MRI Brain w & w/o contrast (11/15/2017 9:15 AM PAPER BOX CUTTER) Anatomical Region Laterality Modality Head, SUBRAD MR NEURO, UMP MR NEURO, RAD MR Magnetic Resonance Specimen (Source) Anatomical Location Collection Method / Collectio n Time Received Time / Laterality Volume Impressions 11/15/2017 9:39 AM PAPER BOX CUTTER IMPRESSION: ?? 1. No evidence of acute infarct, mass, h emorrhage, or herniation. 2. Moderate diffuse parenchymal volume l oss and white matter changes likely due to chronic microvascular isch emic disease without significant change since prior. KATIA DAVID MD Narrative 11/15/2017 9:39 AM PAPER BOX CUTTER MRI BRAIN WITHOUT AND WITH CONTRAST ??11/15/2017 [...] distorted by artifact. No evidence of ac [place] intracranial hemorrhage. No mass effect or midline [...] distorted by artifact. No evidence of ac [place] intracranial hemorrhage. No mass effect or midline [...] (ABNORMAL) Basic metabolic panel (11/15/2017 6:37 AM PAPER BOX CUTTER) Analysis Performed At Patho logist Time Signature Sodium 141 133 - 144 11/15/2017 [facility] mmol/L 7:04 AM [facility] Potassium 4.1 3.4 - 5.3 11/15/2017 [facility] mmol/L 7:04 AM [facility] Chloride 109 94 - 109 11/15/2017 [facility] mmol/L 7:04 AM [facility] Carbon Dioxide 25 20 - 32 11/15/2017 [facility] mmol/L 7:04 AM [facility] Anion Gap 7 3 - 14 11/15/2017 [facility] mmol/L 7:04 AM [facility] Glucose 105 (H) 70 - 99 11/15/2017 [facility] mg/dL 7:04 AM [facility] Urea Nitrogen 33 (H) 7 - 30 11/15/2017 [facility] mg/dL 7:04 AM [facility] Creatinine 1.51 (H) 0.66 - 11/15/2017 [facility] 1.25 mg/dL 7:04 AM [facility] GFR Estimate 45 (L) >60 11/15/2017 [facility] mL/min/1.7 7:[address] Comment: Non GFR Calc GFR Estimate If 55 (L) >60 mL/min/1.7m2 11/15/2017 7:04 A M [facility] Comment: GFR Calc Calcium 8.8 8.5 - 10.1 mg/dL 11/15/2017 7:04 AM [facility] Specimen Anatomical Collection Method Collection Time Receive d Time (Source) Location / / Volume Laterality Blood specimen 11/15/2017 6:37 AM 018 6:38 (specimen) PAPER BOX CUTTER AM PAPER BOX CUTTER Jamie Gates MD LAB - BLOOD ORDERABLES Performing Organization Address City/State/ZIP Code Phon e Number [facility] [address] [address] [facility] [address] [phone] EKG 12-lead, tracing only (11/15/2017 2:08 AM PAPER BOX CUTTER) [facility] gist Method Time Signature Interpretation ECG Click View RADIOLOGY Image link RESULTS to view waveform and result Specimen (Source) Anatomical Collection Method Collection Time Re ceived Time Location / / Volume Laterality 11/15/2017 2:08 AM PAPER BOX CUTTER Jamie Gates MD ECG ORDERABLES Performing Organization Address City/[facility]/ZIP Code Phon e Number RADIOLOGY RESULTS CT Head w Contrast (11/14/2017 11:58 PM PAPER BOX CUTTER) Anatomical Region Laterality Modality Head, NEURO, SUBRAD CT NEURO, SUBRAD CT NEURO, UMP CT Computed Tomography NEURO, RAD CT Specimen (Source) Anatomical Location Collection Method / Collectio n Time Received Time / Laterality Volume Impressions 11/15/2017 8:18 AM PAPER BOX CUTTER IMPRESSION: 1. Patent arteries in the neck [...] KATIA DAVID MD Narrative 11/15/2017 8:[address] ANGIOGRAM OF THE HEAD AND NECK [...] appear patent without vascular cutoff. No aneurysm roasnne ntified. There is atherosclerotic calcification of the [...] CTA Angiogram Head Neck (11/14/2017 11:53 PM PAPER BOX CUTTER) Anatomical Region Laterality Modality Head, SUBRAD CT NEURO, SUBRAD CT NEURO, UMP CT NEURO, Computed Tomography RAD CT Specimen (Source) Anatomical Location Collection Method / Collectio n Time Received Time / Laterality Volume Impressions 11/15/2017 8:18 AM PAPER BOX CUTTER IMPRESSION: 1. Patent arteries in the neck [...] KATIA DAVID MD Narrative 11/15/2017 8:[address]UTTER [address] ANGIOGRAM OF THE HEAD AND NECK [...] CT Head w/o Contrast (11/14/2017 11:39 PM PAPER BOX CUTTER) Anatomical Region Laterality Modality Head, SUBRAD CT NEURO, SUBRAD CT NEURO, UMP CT NEURO, Computed Tomography RAD CT Specimen (Source) Anatomical Location Collection Method / Collectio n Time Received Time / Laterality Volume Impressions 11/15/2017 8:18 AM PAPER BOX CUTTER IMPRESSION: ?? 1. No evidence of acute intracranial hem orrhage, mass, or herniation. 2. There is generalized atrophy of the b rain. White matter changes are present in the cerebral hemispheres that are consistent with small vessel ischemic disease in this age angela ent. I agree with the overnight preliminary r eport by the radiologist. KATIA DAVID MD Narrative 11/15/2017 8:[address] SCAN OF THE HEAD WITHOUT CONTRAST [...] CT ORDERABLES Troponin I (11/14/2017 11:29 PM PAPER BOX CUTTER) athologist Signature Troponin I ES <0.015 0.000 - 11/14/2017 [facility] 0.045 ug/L 11:53 PM [facility] Comment: The 99th percentile for upper reference range is 0.045 ug/L. ??Troponin values in the range of 0.045 - 0.120 ug/L may b e associated with risks of adverse clinical events. Specimen Anatomical Collection Method Collection Time Receive d Time (Source) Location / / Volume Laterality 11/14/2017 11:29 11/14/2017 PM PAPER BOX CUTTER 11:31 PM PAPER BOX CUTTER Damian Mark MD LAB - BLOOD ORDERABLES Performing Organization Address City/[facility]/ZIP [facility] Phon e [facility] [address] [place] [place] [address] [address] [address] [place] [address], [facility] [phone] Partial thromboplastin time (11/14/2017 11:29 PM PAPER BOX CUTTER) athologist Signature PTT 30 22 - 37 sec 11/14/2017 [facility] 11:45 PM PAPER BOX CUTTER [facility] Specimen Anatomical Collection Method Collection Time Receive d Time (Source) Location / / Volume Laterality 11/14/2017 11:29 11/14/2017 PM PAPER BOX CUTTER 11:31 PM PAPER BOX CUTTER Damian Mark MD LAB - BLOOD ORDERABLES Performing Organization Address City/[facility]/ZIP [facility] Phon e Number [facility] [address] [place] [place] [address] [place] [address] [address] [place] [address], [facility] [phone] INR (11/14/2017 11:29 PM PAPER BOX CUTTER) athologist Signature INR 0.96 0.86 - 1.14 11/14/2017 [facility] 11:45 PM [facility] Specimen Anatomical Collection Method Collection Time Receive d Time (Source) Location / / Volume Laterality 11/14/2017 11:29 11/14/2017 PM P[facility]ER BOX CUTTER 11:31 PM PAPER BOX CUTTER Damian Mark MD LAB - BLOOD ORDERABLES Performing Organization Address City/State/ZIP Code Phon e Number [place] [address] [address] [place], [place] [address] [facility] [address] [place], [place] [address], [facility] [phone] (ABNORMAL) CBC with platelets differential (11/14/2017 11:29 PM [facility]) [facility] gist Method Time Signature WBC 6.1 4.0 - 11/14/2017 [facility] 11.0 11:34 PM [facility] 10e9/L [facility] RBC Count 4.23 (L) 4.4 - 5.9 11/14/2017 [facility] 10e12/L 11:34 PM [facility] Hemoglobin 13.7 13.3 - 11/14/2017 [facility] 17.7 g/dL 11:34 PM [facility] Hematocrit 41.0 40.0 - 11/14/2017 [facility] 53.0 % 11:34 PM [facility] MCV 97 78 - 100 11/14/2017 [facility] fl 11:34 PM [facility] MCH 32.4 26.5 - 11/14/2017 [facility] 33.0 pg 11:34 [facility] MCHC 33.4 31.5 - 11/14/2017 [facility] 36.5 g/dL 11:34 [facility] RDW 12.9 10.0 - 11/14/2017 [facility] 15.0 % 11:34 PM [facility] Platelet Count 122 (L) 150 - 450 11/14/2017 [facility] 10e9/L 11:34 PM [facility] Diff Method Automated 11/14/2017 [facility] Method 11:34 PM [facility] % Neutrophils 57.3 % 11/14/2017 [facility] 11:34 PM [facility] % Lymphocytes 27.8 % 11/14/2017 [facility] 11:34 [facility] % Monocytes 11.3 % 11/14/2017 [facility] 11:34 [facility] % Eosinophils 3.1 % 11/14/2017 [facility] 11:34 PM [facility] % Basophils 0.3 % 11/14/2017 [facility] 11:34 PM [facility] % Immature 0.2 % 11/14/2017 [facility] Granulocytes 11:34 PM [facility] Nucleated RBCs 0 0 /100 11/14/2017 [facility] 11:34 PM [facility] Absolute 3.5 1.6 - 8.3 11/14/2017 [facility] Neutrophil 10e9/L 11:34 PM [facility] Absolute 1.7 0.8 - 5.3 11/14/2017 [facility] Lymphocytes 10e9/L 11:34 PM [facility] Absolute 0.7 0.0 - 1.3 11/14/2017 [facility] Monocytes 10e9/L 11:34 PM [facility] Absolute 0.2 0.0 - 0.7 11/14/2017 [facility] Eosinophils 10e9/L 11:34 PM [facility] Absolute 0.0 0.0 - 0.2 11/14/2017 [facility] Basophils 10e9/L 11:34 PM [facility] Abs Immature 0.0 0 - 0.4 11/14/2017 [facility] Granulocytes 10e9/L 11:34 PM [facility] Absolute 0.0 11/14/2017 [facility] Nucleated RBC 11:34 PM [facility] Specimen Anatomical Collection Method Collection Time Receive d Time (Source) Location / / Volume Laterality 11/14/2017 11:29 11/14/2017 PM PAPER BOX CUTTER 11:31 PM PAPER BOX CUTTER Damian Mark MD LAB - BLOOD ORDERABLES Performing Organization Address City/State/ZIP Code Phon e Number [place] [address] [address] [place] [address] [facility] [address] [phone] (ABNORMAL) Basic metabolic panel (11/14/2017 11:29 PM PAPER BOX CUTTER) Analysis Performed At Patho logist Time Signature Sodium 141 133 - 144 11/14/2017 [facility] mmol/L 11:53 PM [facility] Potassium 3.7 3.4 - 5.3 11/14/2017 [facility] mmol/L 11:53 PM [facility] Chloride 107 94 - 109 11/14/2017 [facility] mmol/L 11:53 PM [facility] Carbon Dioxide 26 20 - 32 11/14/2017 [facility] mmol/L 11:53 PM [facility] Anion Gap 8 3 - 14 11/14/2017 [place] mmol/L 11:53 PM [facility] Glucose 103 (H) 70 - 99 11/14/2017 [place] mg/dL 11:53 PM [facility] Urea Nitrogen 32 (H) 7 - 30 11/14/2017 [place] mg/dL 11:53 PM [facility] Creatinine 1.67 (H) 0.66 - 11/14/2017 [place] 1.25 mg/dL 11:53 PM [facility] GFR Estimate 40 (L) >60 11/14/2017 [place] mL/min/1.7 11:[address] Comment: Non GFR Calc GFR Estimate If 49 (L) >60 mL/min/1.7m2 11/14/2017 11:53 PM [facility] Comment: GFR Calc Calcium 8.9 8.5 - 10.1 mg/dL 11/14/2017 11:53 PM [facility] Specimen Anatomical Collection Method Collection Time Receive d Time (Source) Location / / Volume Laterality 11/14/2017 11:29 11/14/2017 PM PAPER BOX CUTTER 11:31 PM PAPER BOX CUTTER Damian Mark MD LAB - BLOOD ORDERABLES Performing Organization Address City/State/ZIP Code Phon e Number [place] [address] [phone] EKG 12 lead (11/14/2017 11:22 PM PAPER BOX CUTTER) [facility] Method Time Signature Interpretation ECG Click View RADIOLOGY Image link RESULTS to view waveform and result Specimen (Source) Anatomical Collection Method Collection Time Re ceived Time Location / / Volume Laterality 11/14/2017 11:22 PM PAPER BOX CUTTER Damian Mark MD ECG ORDERABLES Performing Organization Address City/State/ZIP [facility] Phon e Number [...] chloride BOLUS New Bag 11/14/2017 11:48 PM PAPER BOX CUTTER 80 mLs Intravenous, 1,000 mL, ONCE, On 11/14/17 at 2330, For 1 dose acetaminophen (TYLENOL) tablet 1,000 mg Given 11/15/2017 1:11 AM PAPER BOX CUTTER 1,000 mg 1,000 mg, Oral, ONCE, On 11/15/17 at 0054, For 1 dose, Maximum acetaminophen dose from all sources = 75 mg/kg/day not to exceed 4 gram acetaminophen (TYLENOL) tablet 650 mg Given 11/15/2017 6:11 AM PAPER BOX CUTTER 650 mg 650 mg, Oral, EVERY 4 HOURS PRN, mild pain, Starting on 11/15/17 at 0204, Alternate ibuprofen (if ordered) with acetaminophen. Maximum acetaminophen dose from all sources = 75 mg/kg/day not to exceed 4 grams/day. gadobutrol (GADAVIST) injection 10 mL Given 11/15/2017 8:30 AM PAPER BOX CUTTER 10 mLs 10 mL, Intravenous, ONCE, On 11/15/17 at 0805, For 1 dose, Supplied by, and administered by MRI. iopamidol (ISOVUE-370) solution 500 mL Given 11/14/2017 11:48 PM PAPER BOX CUTTER 120 mLs 500 mL, Intravenous, ONCE, On 11/14/17 at 2330, For 1 dose lisinopril (PRINIVIL/ZESTRIL) tablet 5 m g 5 mg, Oral, DAILY, First dose on 11/15/17 at 1102, Hold for SBP < 100 LORazepam (ATIVAN) injection 0.5-1 mg Given 11/15/2017 8:20 AM PAPER BOX CUTTER 0.5 mg 0.5-1 mg, Intravenous, ONCE, On [...] Recently Administered Medications Times are shown in PAPER BOX CUTTER. Scheduled Medication Order 11/13/2017 11/14/2017 11/15/2017 0.9% [...] minutes.
documented in this encounter Care Teams Cartographic Drafter Relationship Specialty Start Date End Date Bandar, Kehinde Portillofield PCP - General 05/12/[address] [place] [id number] documented as of this encounter
--- OUTSIDE RECORDS SUMMARY | 2022-06-20 08:53 | XMS_ITS | Encounter Summary ---
:1940 Author Organization [facility] Address [address] [place] [id number] Care Team Providers Name Role Phone Clinic, [facility] Primary Care Provider [phone] Reason for Visit CV Testing - Closed Specialty Diagnoses / Procedures Referred By Contact Refer red To Contact Cardiology Diagnoses Transient cerebral ischemia, unspecified type Luis Antonio Quintanilla MD Rh Echo cc Procedures ECHO COMPLETE BUBBLE STUDY WITH OPTISON Echo Complete Bubble [address] [address] [place] [address] [address] [place] [address] Phone: Fax: Referral ID Status Reason Start Date Expiration Date Visits Requ ested Visits Authorized [id number] Closed 11/16/2017 11/16/2018 1 1 Encounter Details Date Type Department Care Team Description 11/17/2017 Hospital Encounter [facility] Luis Antonio Quintanilla [facility] MD [place] ischemia, unspecified [facility] [address] type [address] [place], [place] [address] [address] [place], [place] [phone] (Work) [phone] Social History Tobacco Use Types Packs/Day Years [...] Re sults for this BUBBLE STUDY WITH PIE BAKER ischemia, procedure are in OPTISON unspecified type the results section. documented in this encounter Results ECHO COMPLETE BUBBLE STUDY WITH OPTISON (11/17/2017 2:35 PM PIE BAKER) Anatomical Region Laterality Modality Echocardiography Specimen (Source) Anatomical Collection Method Collection Time Re ceived Time Location / / Volume Laterality 11/17/2017 1:54 PM PIE BAKER Narrative 11/17/2017 3:15 PM PIE BAKER [id number]^ARNAUD^LUIS ANTONIO^PIPPA [facility] Echocardiography Laboratory [address] [place] [id number] Name: SPEEDY MCDUFFIE : 1940 Study Date: 11/17/2017 01:54 PM Age: 77 yrs Gender: Male Patient Location: [facility] Reason For Study: , Transient cerebral i [...] note might be different from the original. [id number]^ARNAUD^LUIS ANTONIO^PIPPA [facility] Echocardiography [facility] [address] [place] [id number] Name: SPEEDY MCDUFFIE : 1940 Study Date: 11/17/2017 01:54 PM Age: 77 yrs Gender: Male Patient Location: [facility] Reason For Study: , Transient cerebral i [...] to 2mL with Given 11/17/2017 2:45 PM PIE BAKER 3 mLs saline (OPTISON) diluted injection 3 mL 3 mL, Intravenous, ONCE, On Thu11/17/17 at 1445, For 1 dose, [facility] 5284-4168-52 sodium chloride (PF) 0.9% PF flush 10 mL Given 11/17/2017 2:37 PM PIE BAKER 10 mLs 10 mL, Intravenous, ONCE, On Thu11/17/17 at 1445, For 1 dose sodium chloride bacteriostatic 0.9 % flush 30 Given 2:37 PM PIE BAKER 30 mLs mL 30 mL, Intravenous, ONCE, On Thu11/17/17 at 1445, For 1 dose documented in this encounter Care Teams Supervisor [employer] Relationship Specialty Start Date End Date [facility], [facility] PCP - General 05/12/[address] [place] [id number] documented as of this encounter
--- OUTSIDE RECORDS SUMMARY | 2022-06-20 08:53 | XMS_ITS | Encounter Summary ---
:1940 Author Organization [place] Address [address] [facility] [place] [address] Care Team Providers Name Role Phone Clinic, [facility] Primary Care Provider Reason for Visit Auth/Cert Specialty Diagnoses / Procedures Referred By Contact Refer red To Contact Surgery Diagnoses ABDOMINAL AORTIC ANEURYSM Periop Services Procedures ENDOVASCULAR REPAIR ANEURYSM ABDOMINAL AORTA [address] [place] [address] Phone: Referral ID Status Reason Start Date Expiration Date Visits Requ ested Visits Authorized [id number] 1 1 Encounter Details Date Type Department Care Team Description 09/28/2018 Surgery [facility] Juan Vásquez FEMORAL [place] PeriOP MD Elijah CUTDOWN WITH ANGIOGRAM Services [address] [place] [address] [place] [address] [phone] Surgery Details Date/Time Status Location OR Service [...] Comments Blood Pressure 146/79 09/28/2018 3:00 PM DRAMA DIRECTOR Pulse 60 09/28/2018 11:21 AM DRAMA DIRECTOR Temperature 36.5 ??C (97.7 ??F) 09/28/2018 3:00 PM DRAMA DIRECTOR Respiratory Rate 9 09/28/2018 3:50 PM DRAMA DIRECTOR Oxygen Saturation 94% 09/28/2018 3:50 PM DRAMA DIRECTOR Inhaled Oxygen Concentration - - Weight 84.8 kg (187 lb) 09/28/2018 11:21 AM DRAMA DIRECTOR Height 170.2 cm (5' 7) 09/28/2018 11:21 AM DRAMA DIRECTOR Body Mass Index 29.41 09/28/2018 11:21 AM DRAMA DIRECTOR documented in this encounter Discharge Summaries Juan [...] MD MT: RIO Name: SPEEDY MCDUFFIE Account: [id number] : 1940 Admit Date: 09/28/2018 Discharge Date: 09/29/2018 Document: [id number] cc: Primary A DIRECTOR documented in this encounter Medications at Time [...] Levi MD - 09/29/2018 9:32 AM CST [facility] Vascular Medicine Progress Note Date [...] aorta. Exchange was made for a 6 [place]an vascular sheath. 18-gauge singlewall needle was then advanced into the left common femoral artery through which a 0.035 inch Bentson wire was advanced in the abdominal aorta. Exchange is made for a 6 [place] vascular sheath. Via the left groin access, a 5 [place] pigtail catheter was advanced over the Bentson wire into the abdominal aorta. Via the right groin, a 5 [place] pigtail catheter was advanced over the Bentson [...] concerns during business hours M-F, call the [facility] at [phone] to have the rounding/cotton opener Vascular Medicine (NOT VASCULAR SURGERY) paged. - After business hours M-F,??for medical concerns on this patient, please page hospitalist staff. - For vascular surgical questions, please page the appropriate surgeon (primary vascular surgeon or cotton opener vascular surgeon) based upon the time of day. Lambert Fontanez PA-C Zoltan Londono MD - 09/29/2018 8:19 AM CST [facility] Vascular Surgery Progress Note Assessment & [...] concerns during business hours M-F, call the [facility] at [phone] to have the rounding/cotton opener Vascular Medicine (NOT VASCULAR SURGERY) MD paged. - After business hours M-,??for medical concerns on this patient, please page hospitalist staff. - For vascular surgical questions, please page the appropriate surgeon (primary vascular surgeon or cotton opener vascular surgeon) based upon the time of day. Brandie Barrera PA-C Michelle Jones - 09/28/2018 10:42 AM CST Admission medication history interview status for the 09/28/2018 admission is complete. See [facility] admission navigator for prior to admission medications Medication history source reliability:Good Medication history interview source(s):Patient Medication history resources (including written lists, pill bottles, clinic record):Patient mailed in his medication list prior to surgery Primary pharmacy.[facility] Additional medication history information not noted on [facility] med list :None Time spent in [...] at HS Yes Unknown, Entered By History A DIRECTOR documented in this encounter Procedure Notes Jacqui [...] for procedural details. Provider name: Jacqui Odom Registered Massage Therapist(s):None A DIRECTOR documented in this encounter Consult Notes Carrie [...] 1978. 2. Cervical fusion, Dr. Donahue at [facility] 02/18/2006. 3. Hardware removal and matrixectomy, right great toe, 09/30/2012. 4. Lumbar fusion 10/1996, L5-S1. 5. Lumbar fusion 1999, L4. 6. 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 7. Laparoscopic appendectomy, 01/2009. SOCIAL HISTORY: The patient is . He has 2 children. 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 He quit smoking [id number] after a 1/4 pack per day use [...] MD MT: JACKSON Name: SPEEDY MCDUFFIE Account: [id number] : 1940 Consult Date: 09/28/2018 Document: [id number] A DIRECTOR documented in this encounter Miscellaneous Notes Op [...] MD MT: JACKSON Name: SPEEDY MCDUFFIE Account: [id number] : 1940 Procedure Date: 09/28/2018 Document: [id number] A DIRECTOR Plan of Care - Griselda Dinero RN [...] will continue to follow up with this. A DIRECTOR Provider Notification - Levi Hollingsworth MD - 09/29/2018 12:46 AM DRAMA DIRECTOR Brief update: Paged re: request for home melatonin 10 mg melatonin HS PRN added. Levi Hollingsworth MD 12:47 AM A DIRECTOR Plan of Care - Ira South RN - 09/28/2018 11:11 PM CST A&O, VSS, Lung sounds clear, Bowel sounds active,adeqaute urine output, incision right & letgroin CDI Ambulates assist 1, Regular diet, tolerating liquids with poor appetite. Pain controlled by scheduled tylenol and PRN oxycodone. A DIRECTOR Plan of Care - Vandana Smith RN - 09/28/2018 7:22 PM CST Pt is came from PACU.Groin site dressing clean dry and intact.Not void yet.Ice pack given.IVF running .will monitor. A DIRECTOR documented in this encounter Plan of Treatment Not on filedocumented as of this encounter Procedures Procedure Name Priority Date/Time Associated Comments Diagnosis CTA CHEST WITH Routine 09/29/2018 11:38 Results f or this CONTRAST AM DRAMA DIRECTOR procedure are i n the results section. BASIC METABOLIC PANEL Timed 09/29/2018 10:06 AAA (abdominal Results for this AM DRAMA DIRECTOR aortic aneurysm) procedure a re in (H) the results section. GLUCOSE BY METER Routine 09/29/2018 6:00 AM AAA (abdominal Res ults for this DRAMA DIRECTOR aortic aneurysm) procedure a re in (H) the results section. ANGIOGRAM Routine 09/28/2018 2:39 PM DRAMA DIRECTOR IR ABDOMINAL Routine 09/28/2018 2:17 PM AAA (abdominal Results for this ENDOVASCULAR STENT DRAMA DIRECTOR aortic aneurysm) proce dure are in GRAFT (H) the results section. EKG 12-LEAD, TRACING STAT 09/28/2018 11:42 Res ults for this ONLY AM DRAMA DIRECTOR procedure are i n the results section. XR CHEST 1 VIEW STAT 09/28/2018 11:21 Results for this AM DRAMA DIRECTOR procedure are i n the results section. BLOOD COMPONENT Routine 09/28/2018 11:11 AAA (abdominal Result s for this AM DRAMA DIRECTOR aortic aneurysm) procedure a re in (H) the results section. BLOOD COMPONENT Routine 09/28/2018 11:11 AAA (abdominal Result s for this AM DRAMA DIRECTOR aortic aneurysm) procedure a re in (H) the results section. POTASSIUM STAT 09/28/2018 11:11 AAA (abdominal Results f or this AM DRAMA DIRECTOR aortic aneurysm) procedure a re in (H) the results section. LIPID PROFILE STAT 09/28/2018 11:11 AAA (abdominal Results for this AM DRAMA DIRECTOR aortic aneurysm) procedure a re in (H) the results section. HEMOGLOBIN A1C STAT 09/28/2018 11:11 AAA (abdominal Results for this AM DRAMA DIRECTOR aortic aneurysm) procedure a re in (H) the results section. CREATININE STAT 09/28/2018 11:11 AAA (abdominal Results f or this AM DRAMA DIRECTOR aortic aneurysm) procedure a re in (H) the results section. ABO/RH TYPE AND STAT 09/28/2018 11:11 AAA (abdominal Result s for this SCREEN AM DRAMA DIRECTOR aortic aneurysm) procedure a re in (H) the results section. LAB RESULT - HIM SCAN 09/24/2018 12:00 AM DRAMA DIRECTOR EKG CARDIAC - HIM 09/24/2018 12:00 SCAN AM DRAMA DIRECTOR documented in this encounter Results CTA Chest with Contrast (09/29/2018 11:38 AM DRAMA DIRECTOR) Anatomical Region Laterality Modality Chest, SUBRAD IR PROCEDURE, UMP CT CTA, RAD CT Computed Tomography Specimen (Source) Anatomical Location Collection Method / Collectio n Time Received Time / Laterality Volume Impressions 09/29/2018 4:30 PM DRAMA DIRECTOR IMPRESSION: Tortuous descending thoracic aorta with bilobed aneurysmal dilatation measuring up to 50 mm in diameter in the distal descending aorta. JACQUI ODOM MD Narrative 09/29/2018 4:30 PM DRAMA DIRECTOR PROCEDURE: CTA of the chest DATE OF [...] ORDERABLES Basic metabolic panel (09/29/2018 10:06 AM DRAMA DIRECTOR) [facility] Method Time Signature Sodium 141 133 - 144 09/29/2018 [place] mmol/L 10:31 AM DRAMA DIRECTOR [facility] Potassium 4.5 3.4 - 5.3 09/29/2018 [place] mmol/L 10:31 AM [facility] Chloride 109 94 - 109 09/29/2018 [place] mmol/L 10:31 AM [facility] Carbon Dioxide 25 20 - 32 09/29/2018 [place] mmol/L 10:31 AM [facility] Anion Gap 7 3 - 14 09/29/2018 [place] mmol/L 10:31 AM [facility] Glucose 97 70 - 99 09/29/2018 [place] mg/dL 10:31 AM [facility] Urea Nitrogen 18 7 - 30 09/29/2018 [place] mg/dL 10:31 AM [facility] Creatinine 1.25 0.66 - 09/29/2018 [place] 1.25 10:31 AM [facility] GFR Estimate Not Calculated >60 09/29/2018 [place] mL/min/1. 10:[address] GFR Estimate Not Calculated >60 09/29/2018 [place] If Black mL/min/1. 10:[address] Calcium 8.8 8.5 - 09/29/2018 [place] 10.1 10:31 AM [facility] mg/dL [facility] Specimen Anatomical Collection Method Collection Time Receive d Time (Source) Location / / Volume Laterality Blood specimen 09/29/2018 10:06 8 (specimen) AM DRAMA DIRECTOR 10:07 AM DRAMA DIRECTOR Pam Conde PA-C LAB - BLOOD ORDERABLES Performing Organization Address City/State/ZIP Code Phon e Number M [facility] [address] [address] [facility] [address] [address], [place] [phone] (ABNORMAL) Glucose by meter (09/29/2018 6:00 AM DRAMA DIRECTOR) P athologist Signature Glucose 109 (H) 70 - 99 09/29/2018 POINT [facility] CARE mg/dL 6:18 AM DRAMA DIRECTOR TEST, GLUCOSE Specimen Anatomical Collection Method Collection Time Receive d Time (Source) Location / / Volume Laterality 09/29/2018 6:00 AM 8 6:18 DRAMA DIRECTOR AM DRAMA DIRECTOR Juan Vásquez MD LAB - CAROLYN POCT Performing Organization Address City/State/ZIP Code Phon e Number [facility] POINT OF CARE TEST, GLUCOSE POINT OF CARE TEST, GLUCOSE IR Abdominal Endovascular Stent Graft (09/28/2018 2:17 PM DRAMA DIRECTOR) Anatomical Region Laterality Modality Abdomen/Pelvis Radio Fluoroscopy Specimen (Source) Anatomical Location Collection Method / Collectio n Time Received Time / Laterality Volume Impressions 09/29/2018 8:52 AM DRAMA DIRECTOR Impression: 1. Thoracic and abdominal angiography de monstrating previously unknown thoracic aortic aneurysm as well as the known abdominal aortic aneurysm 2. Endovascular aneurysm repair was abor clover to allow for further investigation of the thoracic aortic ane urysm and future surgical planning. JACQUI ODOM MD Narrative 09/29/2018 8:52 AM DRAMA DIRECTOR PROCEDURE(S): 1. Thoracic and abdominal aortic angiogr [...] aorta. Exchange was made for a 6 [place]an vascula r sheath. 18-gauge singlewall needle was then advanced into the left c ommon femoral artery through which a 0.035 inch Bentson wire was adva nced in the abdominal aorta. Exchange is made for a 6 [place] vascular sheath. Via the left groin access, a 5 [place] pigtail catheter was advanced over the Bentson wire into the abdominal aorta. Via the right groin, a 5 [place] pigtail catheter was advanced over the Bentson [...] no im mediate procedure-related complications. Procedure Note Jacuqi Odom MD - 09/29/2018For matting of this [...] the procedure, a multi-disciplinary approach was used [facility] involved Mili Vásquez and Lei functioning as co-surgeons for t his procedure. Bilateral common femoral arteries were s urgically exposed, see separate operative report for details. A n 18-gauge singlewall needle was then inserted into the right common femoral artery through which a 0.035 inch Bentson wire was advanced int o the abdominal aorta. Exchange was made for a 6 [place] vascula r sheath. 18-gauge singlewall needle was then advanced into the left c ommon femoral artery through which a 0.035 inch Bentson wire was adva nced in the abdominal aorta. Exchange is made for a 6 [place]an vascular sheath. Via the left groin access, a 5 [place] pigtail catheter was advanced over the Bentson wire into the abdominal aorta. Via the right groin, a 5 [place] pigtail catheter was advanced over the Bentson [...] EKG 12-lead, tracing only (09/28/2018 11:42 AM DRAMA DIRECTOR) [facility] [place] Method Time Signature Interpretation ECG Click View RADIOLOGY Image link RESULTS to view waveform and result Specimen (Source) Anatomical Collection Method Collection Time Re ceived Time Location / / Volume Laterality 09/28/2018 11:42 AM DRAMA DIRECTOR Juan Vásquez MD ECG ORDERABLES Performing Organization Address City/State/ZIP Code Phon e Number RADIOLOGY RESULTS XR Chest 1 View (09/28/2018 11:21 AM DRAMA DIRECTOR) Anatomical Region Laterality Modality Chest Digital Radiography Specimen (Source) Anatomical Location Collection Method / Collectio n Time Received Time / Laterality Volume Impressions 09/28/2018 1:09 PM DRAMA DIRECTOR IMPRESSION: Heart size similar to prior. The thoracic aorta is elongated. No airspace consolidation or pneumothorax. There appears to be a small right pleural effusion. ELAINA HUNTLEY MD Narrative 09/28/2018 1:09 PM DRAMA DIRECTOR CHEST ONE VIEW ??09/28/2018 11:21 AM HISTORY: [...] ORDER [place] Blood component (09/28/2018 11:11 AM DRAMA DIRECTOR) [facility] [place] [facility] Method Time Signature Unit Number [id number] 09/28/2018 [facility] 1:21 PM [facility] Blood Red Blood 09/28/2018 [facility] Component Cells 1:21 PM [facility] Reduced Division 00 09/28/2018 [facility] Number 1:21 PM [facility] Status of No longer 10/02/2018 [facility] Unit available 3:00 AM [facility] 10/02/2018 HOSPITAL 0300 Blood Product [id number] 09/28/2018 [facility] Code 1:21 PM DRAMA DIRECTOR [facility] Unit Status RET [facility] Specimen Anatomical Collection Method Collection Time Receive d Time (Source) Location / / Volume Laterality 09/28/2018 11:11 09/28/2018 AM DRAMA DIRECTOR 11:44 AM DRAMA DIRECTOR Juan Vásquez MD LABORATORY Performing Organization Address City/State/ZIP Code Phon e Number M [facility] [address] [place], [place] [address] [facility] [address] [address], [facility] [address] [place], [place] [address], [facility] [phone] Blood component (09/28/2018 11:11 AM DRAMA DIRECTOR) [facility] gist Method Time Signature Unit Number [id number] 09/28/2018 [facility] 1:21 PM [facility] Blood Red Blood 09/28/2018 [facility] Component Cells 1:21 PM [facility] Reduced Division 00 09/28/2018 [facility] Number 1:21 PM [facility] Status of No longer 10/02/2018 [facility] Unit available 3:00 AM [facility] 10/02/2018 HOSPITAL 0300 Blood Product [id number] 09/28/2018 [facility] Code 1:21 PM [facility] Unit Status RET [facility] Specimen Anatomical Collection Method Collection Time Receive d Time (Source) Location / / Volume Laterality 09/28/2018 11:11 09/28/2018 AM DRAMA DIRECTOR 11:44 AM DRAMA DIRECTOR Juan Vásquez MD LABORATORY Performing Organization Address City/State/ZIP Code Phon e Number M [facility] [address] [place], [place] [address] [facility] [address] [address], [facility] [address] [place], [place] [address], [facility] [phone] Potassium (09/28/2018 11:11 AM DRAMA DIRECTOR) athologist Signature Potassium 4.0 3.4 - 5.3 09/28/2018 [place] mmol/L 12:22 PM [facility] Specimen Anatomical Collection Method Collection Time Receive d Time (Source) Location / / Volume Laterality Blood specimen 09/28/2018 11:11 8 (specimen) AM DRAMA DIRECTOR 11:43 AM DRAMA DIRECTOR Ramiro Card MD LAB - BLOOD ORDERABLES Performing Organization Address City/State/ZIP Code Phon e Number M [facility] [address] [place] [address] [facility] [address] [place] [address], [place] [phone] Lipid panel (09/28/2018 11:11 AM DRAMA DIRECTOR) Analysis Performed At Patho logist Time Signature Cholesterol 143 <200 mg/dL 09/28/2018 [place] 12:22 PM [facility] Triglycerides 115 <150 mg/dL 09/28/2018 [facility] 12:24 PM [facility] HDL Cholesterol 68 >39 mg/dL 09/28/2018 [facility] 12:24 PM [facility] LDL Cholesterol 52 <100 mg/dL 09/28/2018 [facility] Calculated 12:24 PM [facility] Comment: Desirable: <100 mg/dl Non HDL Cholesterol 75 <130 mg/dL 09/28/2018 12:24 PM [facility] Specimen Anatomical Collection Method Collection Time Receive d Time (Source) Location / / Volume Laterality Blood specimen 09/28/2018 11:11 8 (specimen) AM DRAMA DIRECTOR 11:43 AM DRAMA DIRECTOR Juan Vásquez MD LAB - BLOOD ORDERABLES Performing Organization Address City/State/ZIP Code Phon e Number M [facility] [address] [place] [address] [facility] [address] [place] [address], [place] [phone] (ABNORMAL) ABO/Rh type and screen (09/28/2018 11:11 AM DRAMA DIRECTOR) Component Value Ref Test Analysis Performed At Patholo gist Range Method Time Signature Units Ordered 2 09/28/2018 [facility] 11:54 AM [facility] ABO O 09/28/2018 [facility] 12:28 PM [facility] RH(D) Pos [facility] Antibody Screen Pos (A) 09/28/2018 [facility] 12:28 PM [facility] Test Valid Only [place] 09/28/2018 [facility] At [facility] 11:47 AM [facility] Specimen Expires 10/01/2018 09/28/2018 [facility] 11:47 AM [facility] Crossmatch Red Blood Cells 09/28/2018 [facility] 11:54 AM [facility] Blood Bank Delay in availability of Red Blood Cells called to 09/28/2018 [facility] Comment Esme in Preop at 1228 re 12:37 PM [facility] Antibody ANTI-Rosa 09/28/2018 [facility] Identification 1:26 PM [facility] Antigen Type Rosa Negative 09/28/2018 [facility] 1:26 PM [facility] Specimen Anatomical Collection Method Collection Time Receive d Time (Source) Location / / Volume Laterality Blood specimen 09/28/2018 11:11 8 (specimen) AM DRAMA DIRECTOR 11:44 AM DRAMA DIRECTOR Juan Vásquez MD LAB - BLOOD BANK TEST ORDER Performing Organization Address City/State/ZIP Code Phon e Number M [facility] [address] [address] [phone] [facility] [address] [address], [place] [phone] (ABNORMAL) Hemoglobin A1c (09/28/2018 11:11 AM DRAMA DIRECTOR) P athologist Signature Hemoglobin A1C 5.7 (H) 0 - 5.6 % 09/28/2018 [facility] 12:08 PM [facility] Comment: Normal <5.7% Prediabetes 5.7-6.4% ??Diab etes 6.5% or higher - adopted from ADA consensus guidelines. Specimen Anatomical Collection Method Collection Time Receive d Time (Source) Location / / Volume Laterality Blood specimen 09/28/2018 11:11 8 (specimen) AM DRAMA DIRECTOR 11:43 AM DRAMA DIRECTOR Juan Vásquez MD LAB - BLOOD ORDERABLES Performing Organization Address City/State/ZIP Code Phon e Number M [facility] [address] [address] [phone] [facility] [address] [address], [place] [phone] (ABNORMAL) Creatinine (09/28/2018 11:11 AM DRAMA DIRECTOR) P athologist Signature Creatinine 1.46 (H) 0.66 - 09/28/2018 [facility] 1.25 mg/dL 12:22 PM [facility] GFR Estimate 47 (L) >60 09/28/2018 [facility] mL/min/1.7 12:[address] Comment: Non GFR Calc GFR Estimate If 57 (L) >60 mL/min/1.7m2 09/28/2018 12:22 PM [facility] Comment: GFR Calc Specimen Anatomical Collection Method Collection Time Receive d Time (Source) Location / / Volume Laterality Blood specimen 09/28/2018 11:11 8 (specimen) AM DRAMA DIRECTOR 11:43 AM DRAMA DIRECTOR Juan Vásquez MD LAB - BLOOD ORDERABLES Performing Organization Address City/State/ZIP Code Phon e Number [facility] [address] [address] [facility] [address] [address], [place] [phone] LAB RESULT - HIM SCAN (09/24/2018 12:00 AM DRAMA DIRECTOR) Specimen (Source) Anatomical Location Collection Method / Collectio n Time Received Time / Laterality Volume 09/24/2018 Narrative This result has an attachment that is no t available. Provider Outside NON-BEAKER LAB TESTING EKG CARDIAC - HIM SCAN (09/24/2018 12:00 AM DRAMA DIRECTOR) Specimen (Source) Anatomical Location Collection Method / [...] (TYLENOL) tablet 975 Given 09/29/2018 5:41 AM DRAMA DIRECTOR 975 mg mg 975 mg, Oral, EVERY 8 HOURS, First dose on Thu09/28/18 at 2200, For 3 days, Do not use if patient has an active opioid/acetaminophen combined analgesic product ordered for pain. Maximum acetaminophen dose from all sources = 75 mg/kg/day not to exceed 4 grams/day., Post-procedure Given 09/28/2018 9:50 PM DRAMA DIRECTOR 975 mg atorvastatin (LIPITOR) tablet 40 mg Given 09/28/2018 9:50 PM DRAMA DIRECTOR 40 mg 40 mg, Oral, EVERY EVENING, First dose on Thu09/28/18 at 2000 heparin 10,000 units in 1000 mL 0.9% Given 09/28/2018 1:37 PM CS T 1,000 mLs sodium chloride PRN, Starting on Thu09/28/18 at 1335, Intra-procedure Given 09/28/2018 1:36 PM DRAMA DIRECTOR 1,000 mLs Given 09/28/2018 1:35 PM DRAMA DIRECTOR 1,000 mLs lactated ringers infusion New Bag 09/29/2018 2:48 AM DRAMA DIRECTOR 125 mL/hr at 125 mL/hr, Intravenous, CONTINUOUS, NOT for patient on renal dialysis. Saline lock after 1 liter if taking PO fluids., Post-procedure, Starting on Thu09/28/18 at 1800, Until Thu09/29/18 at 1753 Rate/Dose Verify 09/29/2018 12:39 AM DRAMA DIRECTOR 125 mL/hr New Bag 09/28/2018 6:31 PM DRAMA DIRECTOR 125 mL/hr lisinopril (PRINIVIL/ZESTRIL) tablet 5 m g Given 09/29/2018 8:21 AM DRAMA DIRECTOR 5 mg 5 mg, Oral, 2 TIMES DAILY, First dose on Thu09/28/18 at 2100 Given 09/28/2018 9:52 PM DRAMA DIRECTOR 5 mg melatonin tablet 10 mg Given 09/29/2018 2:48 AM DRAMA DIRECTOR 10 mg 10 mg, Oral, AT BEDTIME PRN, sleep, Starting on Thu09/29/18 at 0044 metoprolol tartrate (LOPRESSOR) tablet 5 0 mg Given 09/29/2018 8:21 AM DRAMA DIRECTOR 50 mg 50 mg, Oral, 2 TIMES DAILY, First dose on Thu09/28/18 at 2100 Given 09/28/2018 9:50 PM DRAMA DIRECTOR 50 mg oxyCODONE (ROXICODONE) tablet 5 mg Given 09/28/2018 10:49 PM DRAMA DIRECTOR 5 mg 5 mg, Oral, EVERY 3 HOURS PRN, other, pain control or improvement in physical function. Hold dose for analgesic side effects., Starting on Thu09/28/18 at 1751, Notify provider to assess for uncontrolled pain or analgesic side effects. Hold while on [employer] or with regular IV opioid dosing. Maximum total is 40 mg in 24 hours., Post-procedure sodium chloride (PF) 0.9% PF flush 3 mL Given 09/28/2018 9:58 PM DRAMA DIRECTOR 3 mLs 3 mL, Intracatheter, EVERY 8 HOURS, First dose on Thu09/28/18 at 2200, And Q1H PRN, to lock peripheral IV dormant line., Post-procedure terazosin (HYTRIN) capsule 5 mg Given 09/28/2018 10:49 PM DRAMA DIRECTOR 5 mg 5 mg, Oral, AT BEDTIME, First dose on Thu09/28/18 at 2200 documented in this encounter Active and Recently Administered Medications Times are shown in DRAMA DIRECTOR. Scheduled Medication Order 09/27/2018 09/28/2018 09/29/2018 acetaminophen [...] mg (COMPLETED) 1207 (Given - Provider: Isis iRvera RN)1210 (Given - Provider: Isis Rivera RN) [...] Volume Adjustment - Provider: Mattie Marmolejo APRN COMPUTER ENGINEERING TECHNOLOGIST)1432 (Anesthesia Volume Adjustment - Provider: Mattie Marmolejo APRN COMPUTER ENGINEERING TECHNOLOGIST) at 25 mL/hr, Intravenous, CONTINUOUS, IF patient [...] response., Post-procedure oxyCODONE (ROXICODONE) tablet 5 mg 6249 (Given - Provider: Ira South, JOSE) 5 mg, Oral, EVERY 3 HOURS PRN, other, pa in control or improvement in physical function. Hold dose for analgesic side effects., Starting Thu09/28/18 at 1751, Notify provider to assess for uncontrolled p ain or analgesic side effects. Hold whil e on [employer] or with regular IV opioid dosing. Maximum total is 40 mg in 24 hours., Post-procedure sodium chloride (PF) 0.9% PF flush 3 mL 3 mL, Intracatheter, EVERY 1 HOUR PRN, l ine flush, for peripheral IV flush post IV meds, Starting Thu09/28/18 at 1751, Post-procedure documented in this encounter Care Teams Licensed Physical Therapy Assistant Relationship Specialty Start Date End Date Clinic, [facility] PCP - General 05/12/[address] [place] [id number] documented as of this encounter
--- OUTSIDE RECORDS SUMMARY | 2022-06-20 08:53 | XMS_ITS | Encounter Summary ---
:1940 Author Organization [place] Address [facility] [place] [address] Care Team Providers Name Role Phone Clinic, [facility] Primary Care Provider [phone] Reason for Visit Auth/Cert Specialty Diagnoses / Procedures Referred By Contact Refer red To Contact Surgery Diagnoses ABDOMINAL AORTIC ANEURYSM Sh Periop Services Procedures ENDOVASCULAR REPAIR ANEURYSM ABDOMINAL AORTA [address] [place] [address] Phone: Referral ID Status Reason Start Date Expiration Date Visits Requ ested Visits Authorized [id number] 1 1 Encounter Details Date Type Department Care Team Description [facility] [address] [place] [id number] AAA (abdominal 09/29/2018 Encounter Carrie Abdi MD [address] [place] [id number] aortic aneurysm) Intermediate Care (H) [address] [...] Comments Blood Pressure 135/74 09/29/2018 11:18 AM [facility] Pulse 48 09/29/2018 11:18 AM [facility]AR[facility] Temperature 36.5 ??C (97.7 ??F) 09/29/2018 11:18 AM [facility]ARIAN Respiratory Rate 16 09/29/2018 11:18 AM [facility]ARIAN Oxygen Saturation 95% 09/29/2018 11:18 AM [facility]ARIAN Inhaled Oxygen Concentration - - Weight 85.2 kg (187 lb 12.8 oz) 09/29/2018 5:00 AM [facility]AR[facility] Height 170.2 cm (5' 7) 09/28/2018 11:21 AM [facility]AR[facility] Body Mass Index 29.41 09/28/2018 11:21 AM [facility] SANITARIAN documented in this encounter Discharge Summaries Juan [...] MD MT: RIO Name: SPEEDY MCDUFFIE Account: [id number] : 1940 Admit Date: 09/28/2018 Discharge Date: 09/29/2018 Document: [id number] cc: Primary [facility]ITARIAN documented in this encounter Medications at Time [...] Levi MD - 09/29/2018 9:32 AM CST [facility] Vascular Medicine Progress Note Date of [...] aorta. Exchange was made for a 6 [place] vascular sheath. 18-gauge singlewall needle was then advanced into the left common femoral artery through which a 0.035 inch Bentson wire was advanced in the abdominal aorta. Exchange is made for a 6 [place] vascular sheath. Via the left groin access, a 5 [place] pigtail catheter was advanced over the Bentson wire into the abdominal aorta. Via the right groin, a 5 [place] pigtail catheter was advanced over the Bentson [...] concerns during business hours M-F, call the [facility] V[facility] Center at [phone] to have the rounding/brick mason Vascular Medicine (NOT VASCULAR SURGERY) MD paged. - After business hours M-F,??for medical concerns on this patient, please page hospitalist staff. - For vascular surgical questions, please page the appropriate surgeon (primary vascular surgeon or brick mason vascular surgeon) based upon the time of day. Lambert Fontanez PA-C Zoltan Londono MD - 09/29/2018 8:19 AM CST [facility] Vascular Surgery Progress Note Assessment & [...] concerns during business hours M-F, call the [facility] Vascular [facility] at [phone] to have the rounding/brick mason Vascular Medicine (NOT VASCULAR SURGERY) MD paged. - After business hours M-F,??for medical concerns on this patient, please page hospitalist staff. - For vascular surgical questions, please page the appropriate surgeon (primary vascular surgeon or brick mason vascular surgeon) based upon the time of day. Brandie Barrera PA-C Michelle Jones - 09/28/2018 10:42 AM CST Admission medication history interview status for the 09/28/2018 admission is complete. See [facility] admission navigator for prior to admission medications Medication history source reliability:Good Medication history interview source(s):Patient Medication history resources (including written lists, pill bottles, clinic record):Patient mailed in his medication list prior to surgery Primary pharmacy.[facility] Additional medication history information not noted on RACK LO[facility]ER med list :None Time spent in this [...] at HS Yes Unknown, Entered By History [facility]ITARIAN documented in this encounter Procedure Notes Jacqui [...] for procedural details. Provider name: Jacqui Odom Customer Service Sales Associate(s):None [facility]ALTH SANITARIAN documented in this encounter Consult Notes Carrie [...] in his throat. PENICILLINS cause a rash. [facility] has an unspecified allergy associated with its use. PREVIOUS MEDICAL HISTORY: 1. Hyperlipidemia. 2. Hypertension. 3. Contact dermatitis. 4. AAA. 5. Colonic polyps. 6. Lumbar spinal stenosis. 7. Impaired fasting glucose. 8. Stage III chronic kidney disease. 9. Paroxysmal atrial fibrillation. PREVIOUS SURGICAL HISTORY: 1. Cervical fusion C7, December 1978. 2. Cervical fusion, Dr. Donahue at [facility] 02/18/2006. 3. Hardware removal and matrixectomy, right great toe, 09/30/2012. 4. Lumbar fusion 10/1996, L5-S1. 5. Lumbar fusion 1999, L4. 6. 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 7. Laparoscopic appendectomy, 01/2009. SOCIAL HISTORY: The patient is . He has 2 children. 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 He quit smoking [id number] after a 1/4 pack per day use [...] MD MT: JACKSON Name: SPEEDY MCDUFFIE Account: [id number] : 1940 Consult Date: 09/28/2018 Document: [id number] [facility]ITARIAN documented in this encounter Miscellaneous Notes Op [...] MD MT: JACKSON Name: SPEEDY MCDUFFIE Account: [id number] : 1940 Procedure Date: 09/28/2018 Document: [id number] [facility]ITARIAN Plan of Care - Griselda Dinero RN [...] will continue to follow up with this. [facility]ARIAN Provider Notification - Levi Hollingsworth MD - 09/29/2018 12:46 AM [facility]ALTH SANITARIAN Brief update: Paged re: request for home melatonin 10 mg melatonin HS PRN added. Levi Hollingsworth MD 12:47 AM [facility]ARIAN Plan of Care - Ira South RN - 09/28/2018 11:11 PM CST A&O, VSS, Lung sounds clear, Bowel sounds active,adeqaute urine output, incision right & letgroin CDI Ambulates assist 1, Regular diet, tolerating liquids with poor appetite. Pain controlled by scheduled tylenol and PRN oxycodone. [facility]ITARIAN Plan of Care - Vandana Smith RN - 09/28/2018 7:22 PM CST Pt is came from PACU.Groin site dressing clean dry and intact.Not void yet.Ice pack given.IVF running .will monitor. [facility] SANITARIAN documented in this encounter Plan of Treatment Not on filedocumented as of this encounter Procedures Procedure Name Priority Date/Time Associated Comments Diagnosis CTA CHEST WITH Routine 09/29/2018 11:38 Results f or this CONTRAST AM [facility]ALTH SANITARIAN procedure are i n the results section. BASIC METABOLIC PANEL Timed 09/29/2018 10:06 AAA (abdominal Results for this AM [facility]ITARIAN aortic aneurysm) procedure a re in (H) the results section. GLUCOSE BY METER Routine 09/29/2018 6:00 AM AAA (abdominal Res ults for this [facility] SANITARIAN aortic aneurysm) procedure a re in (H) the results section. ANGIOGRAM Routine 09/28/2018 2:39 PM [facility] SANITARIAN IR ABDOMINAL Routine 09/28/2018 2:17 PM AAA (abdominal Results for this ENDOVASCULAR STENT [facility]ALTH SANITARIAN aortic aneurysm) proce dure are in GRAFT (H) the results section. EKG 12-LEAD, TRACING STAT 09/28/2018 11:42 Res ults for this ONLY AM [facility] SANITARIAN procedure are i n the results section. XR CHEST 1 VIEW STAT 09/28/2018 11:21 Results for this AM [facility]ITARIAN procedure are i n the results section. BLOOD COMPONENT Routine 09/28/2018 11:11 AAA (abdominal Result s for this AM [facility]ITARIAN aortic aneurysm) procedure a re in (H) the results section. BLOOD COMPONENT Routine 09/28/2018 11:11 AAA (abdominal Result s for this AM [facility]ITARIAN aortic aneurysm) procedure a re in (H) the results section. POTASSIUM STAT 09/28/2018 11:11 AAA (abdominal Results f or this AM [facility]ITARIAN aortic aneurysm) procedure a re in (H) the results section. LIPID PROFILE STAT 09/28/2018 11:11 AAA (abdominal Results for this AM [facility]ARIAN aortic aneurysm) procedure a re in (H) the results section. HEMOGLOBIN A1C STAT 09/28/2018 11:11 AAA (abdominal Results for this AM [facility]IAN aortic aneurysm) procedure a re in (H) the results section. CREATININE STAT 09/28/2018 11:11 AAA (abdominal Results f or this AM [facility]ITARIAN aortic aneurysm) procedure a re in (H) the results section. ABO/RH TYPE AND STAT 09/28/2018 11:11 AAA (abdominal Result s for this SCREEN AM [facility] SANITARIAN aortic aneurysm) procedure a re in (H) the results section. LAB RESULT - HIM SCAN 09/24/2018 12:00 AM [facility]ITARIAN EKG CARDIAC - HIM 09/24/2018 12:00 SCAN AM [facility] SANITARIAN documented in this encounter Results CTA Chest with Contrast (09/29/2018 11:38 AM [facility] HEALTH SANITARIAN) Anatomical Region Laterality Modality Chest, SUBRAD IR PROCEDURE, UMP CT CTA, RAD CT Computed Tomography Specimen (Source) Anatomical Location Collection Method / Collectio n Time Received Time / Laterality Volume Impressions 09/29/2018 4:30 PM [facility]ALTH SANITARIAN IMPRESSION: Tortuous descending thoracic aorta with bilobed aneurysmal dilatation measuring up to 50 mm in diameter in the distal descending aorta. JACQUI ODOM MD Narrative 09/29/2018 4:30 PM [facility]ALTH SANITARIAN PROCEDURE: CTA of the chest DATE OF [...] ORDERABLES Basic metabolic panel (09/29/2018 10:06 AM [facility] HEALTH SANITARIAN) [facility] Time Signature Sodium 141 133 - 144 09/29/2018 [facility] mmol/L 10:31 AM [facility] Potassium 4.5 3.4 - 5.3 09/29/2018 [facility] mmol/L 10:31 AM [facility] Chloride 109 94 - 109 09/29/2018 [facility] mmol/L 10:31 AM [facility] Carbon Dioxide 25 20 - 32 09/29/2018 [place] mmol/L 10:31 AM [facility] Anion Gap 7 3 - 14 09/29/2018 [place] mmol/L 10:31 AM [facility] Glucose 97 70 - 99 09/29/2018 [place] mg/dL 10:31 AM [facility] Urea Nitrogen 18 7 - 30 09/29/2018 [place] mg/dL 10:31 AM [facility] Creatinine 1.25 0.66 - 09/29/2018 [place] 1.25 10:31 AM [facility] mg/[facility] GFR Estimate Not Calculated >60 09/29/2018 [place] mL/min/1. 10:[address] GFR Estimate Not Calculated >60 09/29/2018 [place] If Black mL/min/1. 10:[address] Calcium 8.8 8.5 - 09/29/2018 [place] 10.1 10:31 AM [facility] mg/dL [facility] Specimen Anatomical Collection Method Collection Time Receive d Time (Source) Location / / Volume Laterality Blood specimen 09/29/2018 10:06 8 (specimen) AM [facility]ARIAN 10:07 AM [facility]IAN Pam Conde PA-C LAB - BLOOD ORDERABLES Performing Organization Address City/State/ZIP Code Phon e Number [facility] [address] [place] [address] [phone] [facility] [address] [place] [address], [place] [phone] (ABNORMAL) Glucose by meter (09/29/2018 6:00 AM PUBLIC HEALTH SANITARIAN) P athologist Signature Glucose 109 (H) 70 - 99 09/29/2018 PO[facility]ARE mg/dL 6:18 AM [facility] HEALTH SANITARIAN TEST, GLUCOSE Specimen Anatomical Collection Method Collection Time Receive d Time (Source) Location / / Volume Laterality 09/29/2018 6:00 AM 8 6:18 [facility]ARIAN AM [facility]ARIAN Juan Vásquez MD LAB - BEAKER POCT Performing Organization Address City/State/ZIP Code Phon e Number [facility] POINT OF CARE TEST, GLUCOSE POINT OF CARE TEST, GLUCOSE IR Abdominal Endovascular Stent Graft (09/28/2018 2:17 PM [facility] HEALTH SANITARIAN) Anatomical Region Laterality Modality Abdomen/Pelvis Radio Fluoroscopy Specimen (Source) Anatomical Location Collection Method / Collectio n Time Received Time / Laterality Volume Impressions 09/29/2018 8:52 AM [facility] HEALTH SANITARIAN Impression: 1. Thoracic and abdominal angiography de monstrating previously unknown thoracic aortic aneurysm as well as the known abdominal aortic aneurysm 2. Endovascular aneurysm repair was abor clover to allow for further investigation of the thoracic aortic ane urysm and future surgical planning. JACQUI ODOM MD Narrative 09/29/2018 8:52 AM [facility] SANITARIAN PROCEDURE(S): 1. Thoracic and abdominal aortic angiogr [...] repair. A timeout was performed per [facility] protocol policy to confirm the correct patient, [...] aorta. Exchange was made for a 6 [place] vascula r sheath. 18-gauge singlewall needle was then advanced into the left c ommon femoral artery through which a 0.035 inch Bentson wire was adva nced in the abdominal aorta. Exchange is made for a 6 [place] vascular sheath. Via the left groin access, a 5 [place] pigtail catheter was advanced over the Bentson wire into the abdominal aorta. Via the right groin, a 5 [place] pigtail catheter was advanced over the Bentson [...] repair. A timeout was performed per [facility] protocol policy to confirm the correct patient, site and pr ocedure to be performed. Please note that due to the complex natu re of the procedure, a multi-disciplinary approach was used [facility] involved Mili Vásquez and Lei functioning as co-surgeons for t his procedure. Bilateral common femoral arteries were s urgically exposed, see separate operative report for details. A n 18-gauge singlewall needle was then inserted into the right common femoral artery through which a 0.035 inch Bentson wire was advanced int o the abdominal aorta. Exchange was made for a 6 [place] vascula r sheath. 18-gauge singlewall needle was then advanced into the left c ommon femoral artery through which a 0.035 inch Bentson wire was adva nced in the abdominal aorta. Exchange is made for a 6 [place] vascular sheath. Via the left groin access, a 5 [place] pigtail catheter was advanced over the Bentson wire into the abdominal aorta. Via the right groin, a 5 [place] pigtail catheter was advanced over the Bentson [...] EKG 12-lead, tracing only (09/28/2018 11:42 AM [facility] HEALTH SANITARIAN) [facility] Method Time Signature Interpretation ECG Click View RADIOLOGY Image link RESULTS to view waveform and result Specimen (Source) Anatomical Collection Method Collection Time Re ceived Time Location / / Volume Laterality 09/28/2018 11:42 AM [facility]ITARIAN Juan Vásquez MD ECG ORDERABLES Performing Organization Address City/State/ZIP Code Phon e Number RADIOLOGY RESULTS XR Chest 1 View (09/28/2018 11:21 AM [facility]ALTH SANITARIAN) Anatomical Region Laterality Modality Chest Digital Radiography Specimen (Source) Anatomical Location Collection Method / Collectio n Time Received Time / Laterality Volume Impressions 09/28/2018 1:09 PM [facility] SANITARIAN IMPRESSION: Heart size similar to prior. The thoracic aorta is elongated. No airspace consolidation or pneumothorax. There appears to be a small right pleural effusion. ELAINA HUNTLEY MD Narrative 09/28/2018 1:09 PM [facility] SANITARIAN CHEST ONE VIEW ??09/28/2018 11:21 AM HISTORY: [...] ORDER BRAYDEN Blood component (09/28/2018 11:11 AM [facility] SANITARIAN) [facility] Method Time Signature Unit Number [id number] 09/28/2018 [facility] 1:21 PM [facility] Blood Red Blood 09/28/2018 [facility] Component Cells 1:21 PM [facility] Reduced Division 00 09/28/2018 [facility] Number 1:21 PM [facility] Status of No longer 10/02/2018 [facility] Unit available 3:00 AM [facility] 10/02/2018 HOSPITAL 0300 Blood Product [id number] 09/28/2018 [facility] Code 1:21 PM [facility] Unit Status [facility] Specimen Anatomical Collection Method Collection Time Receive d Time (Source) Location / / Volume Laterality 09/28/2018 11:11 09/28/2018 AM [facility]ARIAN 11:44 AM [facility] Juan Vásquez MD LABORATORY Performing Organization Address City/State/ZIP Code Phon e Number M [facility] [address] [place], [place] [address] [facility] [address] [place] [address], [facility] [phone] [facility] [address] [place], [place] [address], [facility] [phone] Blood component (09/28/2018 11:11 AM [facility]ALTH SANITARIAN) Patholo gist Method Time Signature Unit Number [id number] 09/28/2018 [facility] 1:21 PM [facility] SANITARIAN [facility] Blood Red Blood 09/28/2018 [facility] Component Cells 1:21 PM [facility] SANITARIAN [facility] Reduced Division 00 09/28/2018 [facility] Number 1:21 PM [facility] Status of No longer 10/02/2018 [facility] Unit available 3:00 AM [facility] 10/02/2018 HOSPITAL 0300 Blood Product [id number] 09/28/2018 [facility] Code 1:21 PM [facility] Unit Status [facility] Specimen Anatomical Collection Method Collection Time Receive d Time (Source) Location / / Volume Laterality 09/28/2018 11:11 09/28/2018 AM [facility]ARIAN 11:44 AM [facility] Juan Vásquez MD LABORATORY Performing Organization Address City/State/ZIP Code Phon e Number M [facility] [address] [place], [place] [address] [facility] [address] [place] [address], [facility] [phone] [facility] [address] [place], [place] [address], [facility] [phone] Potassium (09/28/2018 11:11 AM [facility]ALTH SANITARIAN) P athologist Signature Potassium 4.0 3.4 - 5.3 09/28/2018 [place] mmol/L 12:22 PM [facility]ITARIAN [facility] Specimen Anatomical Collection Method Collection Time Receive d Time (Source) Location / / Volume Laterality Blood specimen 09/28/2018 11:11 12/11/201 8 (specimen) AM [facility]ARIAN 11:43 AM [facility] Ramiro Card MD LAB - BLOOD ORDERABLES Performing Organization Address City/State/ZIP Code Phon e Number [facility] [address] [place] [address] [facility] [address] [place] [address], [place] [phone] Lipid panel (09/28/2018 11:11 AM [facility] HEALTH SANITARIAN) Analysis Performed At [facility] logist Time Signature Cholesterol 143 <200 mg/dL 09/28/2018 [facility] 12:22 PM [facility] Triglycerides 115 <150 mg/dL 09/28/2018 [facility] 12:24 PM [facility] HDL Cholesterol 68 >39 mg/dL 09/28/2018 [facility] 12:24 PM [facility] LDL Cholesterol 52 <100 mg/dL 09/28/2018 [facility] Calculated 12:24 PM [facility] Comment: Desirable: <100 mg/dl Non HDL Cholesterol 75 <130 mg/dL 09/28/2018 12:24 PM [facility] Specimen Anatomical Collection Method Collection Time Receive d Time (Source) Location / / Volume Laterality Blood specimen 09/28/2018 11:11 8 (specimen) AM [facility] 11:43 AM [facility] Juan Vásquez MD LAB - BLOOD ORDERABLES Performing Organization Address City/State/ZIP Code Phon e Number [facility] [address] [place] [address] [phone] [facility] [address] [place] [address], [place] [phone] (ABNORMAL) ABO/Rh type and screen (09/28/2018 11:11 AM [facility] HEALTH SANITARIAN) Component Value Ref Test Analysis Performed At [facility] gist Range Method Time Signature Units Ordered 2 09/28/2018 [facility] 11:54 AM [facility] ABO O 09/28/2018 [facility] 12:28 PM [facility] RH(D) Pos [employer] Antibody Screen Pos (A) 09/28/2018 [facility] 12:28 PM [facility] Test Valid Only [place] 09/28/2018 [facility] At [facility] 11:47 AM [facility] Specimen Expires 10/01/2018 09/28/2018 [facility] 11:47 AM [facility] Crossmatch Red Blood Cells 09/28/2018 [facility] 11:54 AM [facility] Blood Bank Delay in availability of Red Blood Cells called to 09/28/2018 [facility] Comment Esme in Preop at 1228 re 12:37 PM [facility] Antibody ANTI-[place] 09/28/2018 [facility] Identification 1:26 PM [facility] Antigen Type [place] Negative 09/28/2018 [facility] 1:26 PM [facility] Specimen Anatomical Collection Method Collection Time Receive d Time (Source) Location / / Volume Laterality Blood specimen 09/28/2018 11:11 8 (specimen) AM [facility] 11:44 AM [facility]IAN Juan Vásquez MD LAB - BLOOD BANK TEST ORDER Performing Organization Address City/State/ZIP Code Phon e Number [facility] [address] [address] [facility] [address] [place] [address], [place] [phone] (ABNORMAL) Hemoglobin A1c (09/28/2018 11:11 AM [facility] HEALTH SANITARIAN) P athologist Signature Hemoglobin A1C 5.7 (H) 0 - 5.6 % 09/28/2018 [facility] 12:08 PM [facility] Comment: Normal <5.7% Prediabetes 5.7-6.4% ??Diab etes 6.5% or higher - adopted from ADA consensus guidelines. Specimen Anatomical Collection Method Collection Time Receive d Time (Source) Location / / Volume Laterality Blood specimen 09/28/2018 11:11 8 (specimen) AM [facility]ARIAN 11:43 AM [facility] Juan Vásquez MD LAB - BLOOD ORDERABLES Performing Organization Address City/State/ZIP Code Phon e Number [facility] [address] [place] [address] [address] [facility] [address] [place] [address], [place] [phone] (ABNORMAL) Creatinine (09/28/2018 11:11 AM [facility] HEALTH SANITARIAN) P athologist Signature Creatinine 1.46 (H) 0.66 - 09/28/2018 [place] 1.25 mg/dL 12:22 PM [facility] GFR Estimate 47 (L) >60 09/28/2018 [place] mL/min/1.7 12:[address] Comment: Non GFR Calc GFR Estimate If 57 (L) >60 mL/min/1.7m2 09/28/2018 12:22 PM [facility] Comment: GFR Calc Specimen Anatomical Collection Method Collection Time Receive d Time (Source) Location / / Volume Laterality Blood specimen 09/28/2018 11:11 8 (specimen) AM [facility] 11:43 AM [facility]AR[facility] Juan Vásquez MD LAB - BLOOD ORDERABLES Performing Organization Address City/State/ZIP Code Phon e Number [facility] [address] [address] [facility] [address] [place] [address] [address], [place] [phone] LAB RESULT - HIM SCAN (09/24/2018 12:00 AM [facility]ALTH SANITARIAN) Specimen (Source) Anatomical Location Collection Method / Collectio n Time Received Time / Laterality Volume 09/24/2018 Narrative This result has an attachment that is no t available. Provider Outside NON-BEAKER LAB TESTING EKG CARDIAC - HIM SCAN (09/24/2018 12:00 AM [facility] HEALTH SANITARIAN) Specimen (Source) Anatomical Location Collection Method / [...] (TYLENOL) tablet 975 Given 09/29/2018 5:41 AM [facility]ITARIAN 975 mg mg 975 mg, Oral, EVERY 8 HOURS, First dose on Thu09/28/18 at 2200, For 3 days, Do not use if patient has an active opioid/acetaminophen combined analgesic product ordered for pain. Maximum acetaminophen dose from all sources = 75 mg/kg/day not to exceed 4 grams/day., Post-procedure Given 09/28/2018 9:50 PM [facility]ARIAN 975 mg apixaban ANTICOAGULANT (ELIQUIS) tablet 2.5 Given 09/29/2018 8:22 AM [facility] SANITARIAN 2.5 mg mg 2.5 mg, Oral, 2 TIMES DAILY, First dose on Thu09/29/18 at 0900 atorvastatin (LIPITOR) tablet 40 mg Given 09/28/2018 9:50 PM [facility]ARIAN 40 mg 40 mg, Oral, EVERY EVENING, First dose on Thu09/28/18 at 2000 ceFAZolin (ANCEF) intermittent infusion Given 09/29/2018 5:4 1 AM [facility]ITARIAN 2 g 200 mL/hr 2 g in 100 mL dextrose PRE-MIX Routine, 2 g, Intravenous, EVERY 8 HOURS, First dose on Thu09/28/18 at 2100, For 2 doses, Indications: Perioperative Pharmacoprophylaxis, Post-procedure Given 09/28/2018 9:55 PM [facility]ITARIAN 2 g 200 mL/hr fentaNYL (PF) (SUBLIMAZE) injection 100 mcg Given 09/28/2018 12:07 PM [facility]ITARIAN 50 mcg 100 mcg, Intravenous, ONCE, On Thu09/28/18 at 1100, For 1 dose, For ordered IV doses 1-100 mcg give IV Push undiluted over a minimum of 3-5 minutes. fentaNYL (PF) (SUBLIMAZE) injection 25-5 0 mcg Given 09/28/2018 4:04 PM [facility]ITARIAN 25 mcg 25-50 mcg, Intravenous, EVERY 2 [...] 3-5 minutes., PACU Given 09/28/2018 3:50 PM [facility] HE[facility] SANITARIAN 25 mcg Given 09/28/2018 3:41 PM [facility]IAN 25 mcg hydrALAZINE (APRESOLINE) injection 2.5-5 mg Given 09/28/2018 4:10 PM [facility]ARIAN 5 mg 2.5-5 mg, Intravenous, EVERY 10 [...] solution 80 mL Given 09/29/2018 11:37 AM [facility] SANITARIAN 80 mLs 80 mL, Intravenous, ONCE, On Thu09/29/18 at 1130, For 1 dose lactated ringers infusion New Bag 09/28/2018 12:16 PM [facility] SANITARIAN 25 mL/hr at 25 mL/hr, Intravenous, CONTINUOUS, IF patient NOT on dialysis., Pre-procedure, Starting on Thu09/28/18 at 1115, Until Thu09/28/18 at 1457 lactated ringers infusion New Bag 09/29/2018 2:48 AM [facility] SANITARIAN 125 mL/hr at 125 mL/hr, Intravenous, CONTINUOUS, NOT for patient on renal dialysis. Saline lock after 1 liter if taking PO fluids., Post-procedure, Starting on Thu09/28/18 at 1800, Until Thu09/29/18 at 1753 Rate/Dose Verify 09/29/2018 12:39 AM [facility]IAN 125 mL/hr New Bag 09/28/2018 6:31 PM [facility] 125 mL/hr lidocaine 1 % 1 mL Given 09/28/2018 12:00 PM [facility]IAN 0.3 mLs 1 mL, Other, EVERY 1 HOUR PRN, mild pain with VAD insertion or accessing implanted port, Starting on Thu09/28/18 at 1101, Do NOT give if patient has a history of allergy to any local anesthetic or any louie product. MAX dose 1 mL subcutaneous OR intradermal in divided doses., Pre-procedure lisinopril (PRINIVIL/ZESTRIL) tablet 5 m g Given 09/29/2018 8:21 AM [facility]ITARIAN 5 mg 5 mg, Oral, 2 TIMES DAILY, First dose on Thu09/28/18 at 2100 Given 09/28/2018 9:52 PM [facility]IAN 5 mg melatonin tablet 10 mg Given 09/29/2018 2:48 AM [facility]ARIAN 10 mg 10 mg, Oral, AT BEDTIME PRN, sleep, Starting on Thu09/29/18 at 0044 metoprolol tartrate (LOPRESSOR) tablet 5 0 mg Given 09/29/2018 8:21 AM [facility] 50 mg 50 mg, Oral, 2 TIMES DAILY, First dose on Thu09/28/18 at 2100 Given 09/28/2018 9:50 PM [facility]IT[facility]IAN 50 mg midazolam (VERSED) injection 2 mg Given 09/28/2018 12:10 PM [facility]ARIAN 1 mg 2 mg, Intravenous, ONCE, On Thu09/28/18 at 1100, For 1 dose, For ordered IV doses 0.1-2.5 mg give IV Push slowly titrated over a minimum of 2 minutes. Dilute each 1mg in 4mL of NS. Given 09/28/2018 12:07 PM [facility] 1 mg oxyCODONE (ROXICODONE) tablet 5 mg Given 09/28/2018 10:49 PM [facility] SANITARIAN 5 mg 5 mg, Oral, EVERY 3 HOURS PRN, other, pain control or improvement in physical function. Hold dose for analgesic side effects., Starting on Thu09/28/18 at 1751, Notify provider to assess for uncontrolled pain or analgesic side effects. Hold while on PROGRAMMING INTERN or with regular IV opioid dosing. Maximum total is 40 mg in 24 hours., Post-procedure Saline flush Given 09/29/2018 11:37 AM [facility] HE[facility] SANITARIAN 80 mLs Intravenous, 80 mL, ONCE, On Thu09/29/18 at 1130, For 1 dose sodium chloride (PF) 0.9% PF flush 3 mL Given 09/28/2018 9:58 PM [facility] SANITARIAN 3 mLs 3 mL, Intracatheter, EVERY 8 HOURS, First dose on Thu09/28/18 at 2200, And Q1H PRN, to lock peripheral IV dormant line., Post-procedure terazosin (HYTRIN) capsule 5 mg Given 09/28/2018 10:49 PM [facility]IAN 5 mg 5 mg, Oral, AT BEDTIME, First dose on Thu09/28/18 at 2200 documented in this encounter Active and Recently Administered Medications Times are shown in [facility]. Scheduled Medication Order 09/27/2018 09/28/2018 09/29/2018 acetaminophen [...] RN)[id number] (Given - Provider: Mattie Marmolejo APRN SOLUTION DESIGN AND ANALYSIS MANAGER) 900 mg, Intravenous, PRE-OP/PRE-PROCEDUR E, Starting Thu09/28/18 [...] Volume Adjustment - Provider: Mattie Marmolejo APRN SOLUTION DESIGN AND ANALYSIS MANAGER)1432 (Anesthesia Volume Adjustment - Provider: Mattie Marmolejo APRN SOLUTION DESIGN AND ANALYSIS MANAGER) at 25 mL/hr, Intravenous, CONTINUOUS, IF patient [...] analgesic side effects. Hold whil e on PROGRAMMING INTERN or with regular IV opioid dosing. Maximum total is 40 mg in 24 hours., Post-procedure sodium chloride (PF) 0.9% PF flush 3 mL 3 mL, Intracatheter, EVERY 1 HOUR PRN, l ine flush, for peripheral IV flush post IV meds, Starting Thu09/28/18 at 1751, Post-procedure documented in this encounter Care Teams Minister Of Religion Relationship Specialty Start Date End Date [facility], [facility] PCP - General 05/12/[address] [place] [address] documented as of this encounter
--- OUTSIDE RECORDS SUMMARY | 2022-06-20 08:53 | XMS_ITS | Encounter Summary ---
:1940 Author Organization [place] Address [facility] [place] [address] Care Team Providers Name Role Phone Clinic, [facility] Primary Care Provider [phone] Reason for Visit Reason Onset Date Comments Medication Question 05/24/2018 Encounter Details Date Type Department Care Team Description 05/24/[address] [facility] Juan Lewis on Question Vascular Clinic Félix Nava MD [address] [phone] [address] [place] [address] (Wo rk) Social History Tobacco Use Types [...] Additional comments: Please call Raquel his daughter [phone] Phone number to reach patient: Home number on file [phone] (home) Best Time: anytime Can we leave a detailed message on this number? YES Serena Almaguer MA documented in this encounter Plan of Treatment Not on filedocumented as of this encounter Visit Diagnoses Not on filedocumented in this encounter Care Teams Casing Tester Relationship Specialty Start Date End Date Clinic, [facility] PCP - General 05/12/[address] [place] [id number] documented as of this encounter
--- OUTSIDE RECORDS SUMMARY | 2022-06-20 08:53 | XMS_ITS | Encounter Summary ---
:1940 Author Organization [place] Address [address] [facility] [place] [address] Care Team Providers Name Role Phone [facility], [facility] Primary Care Provider [phone] Reason for Referral Diagnostic Imaging CT Scan - Closed Specialty Diagnoses / Procedures Referred By Contact Refer red To Contact Diagnoses Abdominal aortic aneurysm (H) Juan Lewis MD Procedures CTA Abdomen Pelvis with Contrast [address] [place] [address] Referral ID Status Reason Start Date Expiration Date Visits Requ ested Visits Authorized [id number] Closed 06/03/2018 06/03/2019 1 1 Encounter Details Date Type Department Care Team Description 06/03/2018 Orders Only [facility] Juan Lewis Abdompepe l aortic Vascular Clinic Félix Nava MD aneurysm (H) (Primary [address] ) [address] [place] [id number] [place] [id number] Social History Tobacco Use Types Packs/Day Years [...] pture documented in this encounter Care Teams Extension Supervisor Relationship Specialty Start Date End Date Bandar, Kehinde Portillofield PCP - General 05/12/[address] [place] [id number] documented as of this encounter
--- OUTSIDE RECORDS SUMMARY | 2022-06-20 08:53 | XMS_ITS | Encounter Summary ---
:1940 Author Organization [place] Address [facility] [place] [address] Care Team Providers Name Role Phone [facility], [facility] Primary Care Provider [phone] Reason for Visit Reason Comments RECHECK pt would like to discuss Encounter Details Date Type Department Care Team Description 07/01/2018 Office Visit [facility] Juan Lewis aortic Surgery Clinic MD Elijah aneurysm (AAA) without [place] [address] rupture (H) (Primary [address]) [address] [place] [address] [place], [place] [phone] (Work) [phone] Social History Tobacco Use Types Packs/Day Years [...] Primary documented in this encounter Care Teams Corn Crop Supervisor Relationship Specialty Start Date End Date [facility] PCP - General 05/12/[address] [place] [id number] documented as of this encounter
--- OUTSIDE RECORDS SUMMARY | 2022-06-20 08:54 | XMS_ITS | Encounter Summary ---
:1940 Author Organization [facility] Address [address] [place] [id number] Care Team Providers Name Role Phone Celina Coley Primary Care Provider [facility] [place] Primary [facility] Provider Reason for Referral Specialty Diagnoses / Procedures Referred By Contact Tam parson To Contact Sanjuanita Ponce RN Referral ID Status Reason Start Date Expiration Date Visits Requ ested Visits Authorized Specialty Diagnoses / Procedures Referred By Contact Tam parson To Contact Adrian Pleitez MD [address] [place] [id number] Referral ID Status Reason Start Date Expiration Date Visits Requ ested Visits Authorized Specialty Diagnoses / Procedures Referred By Contact Tam parson To Contact Adrian Pleitez MD [address] [facility] [address] [place] [address] Referral ID Status Reason Start Date Expiration Date Visits Requ ested Visits Authorized Specialty Diagnoses / Procedures Referred By Contact Tam parson To Contact Adrian Pleitez MD [address] [place] [address] Referral ID Status Reason Start Date Expiration Date Visits Requ ested Visits Authorized ome Health Therapies & Aides Specialty Diagnoses / Procedures Referred By Contact Refer red To Contact Adrian Pleitez MD [address] [place] [address] Referral ID Status Reason Start Date Expiration Date Visits Requ ested Visits Authorized - Closed Specialty Diagnoses / Procedures Referred By Contact Refer red To Contact Diagnoses Paroxysmal atrial fibrillation (H) Taran Lugo MD [address] [place] [address] Referral ID Status Reason Start Date Expiration Date Visits Requ ested Visits Authorized [id number] Closed 06/11/2017 06/11/2018 1 1 Reason for [...] Care [address] [place] [address] Phone: Referral ID Status Reason Start Date Expiration Date Visits Requ ested Visits Authorized [id number] 1 1 Encounter Details Date Type Department Care Team Description 05/05/2017 [facility] Leesa Martinez MD [facility] [address] [id number] Opioid overdose, accidental or unintenti onal, initial encounter (Primary Dx); - Encounter Miladys Phillips MD [address] [id number] Aspiration pneumonia, unspecified aspira tion pneumonia type, unspecified laterality, unspecified part of lung (H); 05/12/2017 [facility] Stephany Farley MD [address] [place] [address] Encephalopathy; [address] Paroxysmal atrial fibrillati on (H); [place] Hyperlipidemia LDL goal <70; [address] Acute left-sided low back pa in without sciatica; [phone] Unresponsivenes s Social History Tobacco Use Types [...] Pleitez MD - 05/12/2017 3:12 PM CDT [facility] Hospitalist discharge note Date of Service (when [...] follow-up with cardiology, primary care physician in [place] Speedy Mcduffie is a 76 year old male with a past medical history of Htn, CKD, atrial tachycardia, chronic back pain who was admitted on 05/05/2017 with encephalopathy thought due to opioid overdose. ?? Altered mental status/Acute toxic encephalopathy - resolved Patient found by daughter (Raquel, PARTY BUS DRIVER) after likely prolonged period of unresponsiveness and [...] taking scheduled morphine 15mg ER BID with [place] 7.5/325 1-1.5 tabs PRN q4-6 hours started the week FURNACE OPERATOR AND TENDER. Also had been taking gabapentin and flexeril. [...] ? Suspected Aspiration PNA: as above Daughter (PARTY BUS DRIVER) found patient with large amount of material [...] had been managed by his PMD and FURNACE OPERATOR AND TENDER was on Morphine 15 mg po BID (daughter reported that in the past he was confused with Oxycontin),??[place] 7/325 mg 1 tab po q4-6 h; he is also on scheduled Gabapentin and prn Flexeril -had a recent admission to [facility] from 04/28-04/30 for severe lower [...] then stop - Consulted PT/OT. ? HTN: FURNACE OPERATOR AND TENDER on Metoprolol which was dced with bradycardia. [...] Mendes LSW - 05/12/2017 11:10 AM CDT [facility]: [phone]. documented in this encounter Medications at Time [...] continuation of in hospital lisinopril, restart of FURNACE OPERATOR AND TENDER metoprolol (had been advised against rate slowing agents by cardiology), restart of FURNACE OPERATOR AND TENDER flexeril and unclear amiodarone plan. states that [...] hospitalization events. -Raquel given phone # to [facility] and names of last 2 providers seen. -Provided information on creatinine and GFR lab values as well as last administered doses of PRN metoprolol (05/09), PO metoprolol (05/07 - 1/ FURNACE OPERATOR AND TENDER dose) and daily lisinopril (05/12) during hospital [...] located a hospital bed for rent near [place] and has made arrangements for delivery today. SW notified [place] and hospitalist to meet with daughter.per request. CC made referral to [facility] per request. Pt's family has used this agency previously. Team Members notified: Hospitalist, RN, CC, MANUGRAPHER Plan: Discharge home today with family and home care services through [facility]. Sanjuanita Ponce RN - 05/12/2017 9:44 AM CDT Met w/ pt's dtr Raquel and ADRIANO to discuss dc planning. Raquel has some concerns about pt going home rather than TCU but her sister Chastity is on FMLA and intends to stay at home to care for him. Raquel is a [facility] ICU nurse and career center advisor at [employer]. She has been on FMLA but intends [...] better today and therapy is recommending OP PT/OT/PLASTIC MANAGER if not going to TCU. His pain level is still high with ambulation so he would benefit from home care initially as he will not be going out except to his appts. He would need an RN as well. Raquel would prefer to use home care through the [facility] as it is local and they have used it before. Raquel has contacted a hospital rental company and intends to rent a hospital bed for a while at home. She states this will be delivered today and she is taking care of those arrangements. Also discussed multiple f/u appts needed. She would like to stay within the [facility] system for vascular, cardiac, and sleep study. Contacted [facility] intake [phone] and spoke to Lynn. They would be able to see pt tomorrow at home. Faxed [phone] face sheet and H&P. Will fax orders when completed. Contacted [facility] to make f/u appt with Dr Lugo. Appt made for ThuJun 19 at 2:15 to discuss AC in light of AAA. Spoke w/ Natasha Iraheta CLINICAL STAFF PHARMACIST [facility]. They do not need to see pt in f/u as strokes likely more related to hypoxia than AF and cardiology will be addressing AF issue. Contacted pt's PCP Dr Celina Coley at [facility]. Appt made for 05/15 at 10:00. Will fax handoff when dc orders complete. Contacted [facility] and appt made for ThuJun [address] Taylor to discuss sleep study. Await Dr Pleitez for further orders for vascular and urology f/u timing. Discussed transportation with dtr Raquel and bedside RN. Raquel's sister was planning on bringing [employer] to pick remover pt and he would have to walk [...] Lugo to discuss anticoagulation. Faxed orders to [facility] and left message with Lynn to call Raquel at [phone] toschedule appts. Sent [facility] handoff. Faviochayo Berrios Mattie - 05/11/2017 4:28 PM CDT [facility] Progress Note [facility], Palliative Team PRIMARY FOCUS: ? Symptom/pain management ?? Emotional/spiritual/jewish distress ILLNESS CIRCUMSTANCES: ?? Reviewed documentation. Reflective conversation shared with Ed, which integrated elements of illnessand family narratives.? Context of Serious Illness/Symptom(s) - Pt overdosed on opioid pain relievers accidentally upon treatment for a broken tailbone. ?? Resources for Support - Strong family support from and two daughters, along with a brother who is a Anabaptism advanced manufacturing technician DISTRESS: ? Emotional/Existential/Relational Distress - Pt is notably thankful for surviving this overdose. He sees that he is not finished with this life, and he is beginning to look toward how best to spend his remaining time. 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 ?? Spiritual/Oriental Orthodox Distress - None discussed. Pt surprisingly comfortable with his reality of surviving. ?? Social/Cultural/Economic Distress - None discussed? SPIRITUAL/TENRIISM (Coping): ? Mormon/Mariah - Congregation. Pt did not particularly identify his own [...] has not discharged. ? Mattie Berrios M.Div. Audit Practice Intern Pager [phone] Kassy Go APRN TIMBER GRADER - 05/11/2017 3:55 PM CDT [facility] Palliative Care Progress Note Speedy Mcduffie Date [...] if evening or weekend. Milana Go APRN, [facility] Palliative Medicine Pager [phone] Attestation: Total time on the floor involved [...] and are neighbors. Pt' daughterRaquel is an PARTY BUS DRIVER and daughter Chastity is a commercial helicopter pilot. Chastity states she is currently on [...] Nikhil Rodriguez, - 05/11/2017 10:51 AM CDT [facility] Hospitalist Progress Note Nikhil Rodriguez D.O. Date of service (Date I saw patient): 05/11/2017 Assessment & Plan Speedy Mcduffie is a 76 year old male with a past medical history of Htn, CKD, atrial tachycardia, chronic back pain who was admitted on 05/05/2017 with encephalopathy thought due to opioid overdose. Altered mental status/Acute toxic encephalopathy - resolved Patient found by daughter (Raquel, PARTY BUS DRIVER) after likely prolonged period of unresponsiveness and [...] taking scheduled morphine 15mg ER BID with [place] 7.5/325 1-1.5 tabs PRN q4-6 hours started the week FURNACE OPERATOR AND TENDER. Also had been taking gabapentin and flexeril. [...] ? Suspected Aspiration PNA: as above Daughter (PARTY BUS DRIVER) found patient with large amount of material [...] had been managed by his PMD and FURNACE OPERATOR AND TENDER was on Morphine 15 mg po BID (daughter reported that in the past he was confused with Oxycontin),??[place] 7/325 mg 1 tab po q4-6 h; he is also on scheduled Gabapentin and prn Flexeril -had a recent admission to [facility] from 04/28-04/30 for severe lower [...] then stop - Consulted PT/OT. ? HTN: FURNACE OPERATOR AND TENDER on Metoprolol which was dced with bradycardia. [...] outpt appt will be scheduled to discuss mcfp option in light of AAA Interval History: [...] Taran Lugo MD Counters, Natasha Li APRN TIMBER GRADER - 05/11/2017 9:03 AM CDT [facility] Neuroscience [facility] Daily Note Admission Date:05/05/2017 Date of [...] Sensory: Normal to light touch Coordination: Intact [id number] Gait: Up with assistance Cardiovascular: Regular rate [...] of small vessel ischemic disease. Natasha Iraheta, LEARNING SUPPORT ASSISTANT-BC Associated attestation - Raúl Keane MD - [...] Greene MD - 05/10/2017 5:32 PM CDT [facility] Hospitalist Progress Note Assessment & Plan Speedy Mcduffie is a 76 year old male who was admitted on 05/05/2017. 76 year old male who was brought in for evaluation of unresponsiveness. ? 1. Altered mental status/Acute toxic encephalopathy Patient found by daughter (Raquel, PARTY BUS DRIVER) after likely prolonged period of unresponsiveness and suspected aspiration. Airway was cleared by daughter, but patient was hypoxic in the 60s for what soundslike at least 40 minutes before oxygen was available. Patient responded to narcan and thus it was suspected that patient had an unintentional opioid overdose with worsening of renal function and taking scheduled morphine 15mg ER BID with [place] 7.5/325 1-1.5 tabs PRN q4-6 hours started [...] ? 2. Suspected Aspiration PNA - Daughter (PARTY BUS DRIVER) found patient with large amount of material [...] had been managed by his PMD and FURNACE OPERATOR AND TENDER was on Morphine 15 mg po BID (daughter reported that in the past he was confused with Oxycontin),??[place] 7/325 mg 1 tab po q4-6 h; he is also on scheduled Gabapentin and prn Flexeril -and a recent admission to [facility] from 04/28-04/30 for severe lower [...] Consulted PT/OT. ? 6. H/o HTN - FURNACE OPERATOR AND TENDER on Metoprolol 50 mg po BID for [...] Delgado MD - 05/10/2017 4:04 PM CDT [facility] Cardiology Progress Note Date of Service (when [...] Delgado MD - 05/09/2017 2:04 PM CDT [facility] Cardiology Progress Note Date of Service (when [...] Greene MD - 05/09/2017 11:58 AM CDT [facility] Hospitalist Progress Note Assessment & Plan Speedy Mcduffie is a 76 year old male who was admitted on 05/05/2017. 76 year old male who was brought in for evaluation of unresponsiveness. ? 1. Altered mental status/Acute toxic encephalopathy Patient found by daughter (Raquel, PARTY BUS DRIVER) after likely prolonged period of unresponsiveness and suspected aspiration. Airway was cleared by daughter, but patient was hypoxic in the 60s for what soundslike at least 40 minutes before oxygen was available. Patient responded to narcan and thus it was suspected that patient had an unintentional opioid overdose with worsening of renal function and taking scheduled morphine 15mg ER BID with [place] 7.5/325 1-1.5 tabs PRN q4-6 hours started [...] ? 2. Suspected Aspiration PNA - Daughter (PARTY BUS DRIVER) found patient with large amount of material [...] had been managed by his PMD and FURNACE OPERATOR AND TENDER was on Morphine 15 mg po BID (daughter reported that in the past he was confused with Oxycontin),??[place] 7/325 mg 1 tab po q4-6 h; he is also on scheduled Gabapentin and prn Flexeril -and a recent admission to [facility] from 04/28-04/30 for severe lower [...] Consulted PT/OT. ? 6. H/o HTN - FURNACE OPERATOR AND TENDER on Metoprolol 50 mg po BID for [...] Bed to Chair/Chair to Bed Level of [place]: Bed to Chair moderate assist (50% patients effort) Physical Assist/Nonphysical Assist: Bed to Chair 2 persons Weight-Bearing Restrictions full weight-bearing Assistive Device - Transfer Skill Bed to Chair Chair to Bed Rehab Eval rolling walker Transfer Skill: Sit to Stand Level of [place]: Sit/Stand minimum assist (75% patients effort) Physical Assist/Nonphysical Assist: Sit/Stand 2 persons Transfer Skill: Sit to Stand full weight-bearing Assistive Device for Transfer: Sit/Stand rolling walker Transfer Skill: Toilet Transfer Level of [place]: Toilet moderate assist (50% patients effort) Physical Assist/Nonphysical Assist: Toilet 2 persons Assistive Device seat riser;grab bars Balance Balance Comments Reduced dynamic balance Upper Body Dressing Level of [place]: Dress Upper Body minimum assist (75% patients effort) Lower Body Dressing Level of [place]: Dress Lower Body maximum assist (25% patients effort) Physical Assist/Nonphysical Assist: Dress Lower Body 1 person assist Grooming Level of [place]: Grooming stand-by assist Activities of Daily Living [...] in agreement with plan of care Yes [facility] AM-PAC TM 6 Clicks ?? 2016, Trustees of [facility], under license to [employer]. All rights reserved. 6 Clicks Short Forms Basic Mobility Inpatient Short Form [facility] AM-PAC??? 6 Clicks Daily Activity Inpatient Short [...] for IV heparin. Previously reported pauses so service architect BB on hold. Could consider resuming BB and monitoring for pauses or short acting CCB. Would recommending re- consulting EP in am if cards agrees. Continue to monitor on tele. Lindsay Watt PA-C - 05/08/2017 9:13 PM CDT Paged by nursing regarding persistent sinus tachycardia in the 140s this evening. Pt asymptomatic. Reviewed chart. Pt with tachybrady syndrome. Cardiology following. Pt's FURNACE OPERATOR AND TENDER BB has been on hold as wasalternating between periods of sinus tach and sinus dani with up to 3 second pause. Will order PRN IV Metoprolol 2.5 mg q 4 hrs PRN. Monitor. If pt should become symptomatic or HR's continue to be persistently elevated, could increase dose of IV Metoprolol or reinitiate FURNACE OPERATOR AND TENDER BB. Stephany Farley MD - 05/08/2017 2:27 PM CDT [facility] Hospitalist Progress Note Date of Service (when I saw the patient): 05/08/2017 Assessment & Plan Speedy Mcduffie is a 76 year old male who was brought in for evaluation of unresponsiveness. ? 1. Altered mental status/Acute toxic encephalopathy Patient found by daughter (Raquel, PARTY BUS DRIVER) after likely prolonged period of unresponsiveness and suspected aspiration. Airway was cleared by daughter, but patient was hypoxic in the 60s for what soundslike at least 40 minutes before oxygen was available. Patient responded to narcan and thus it was suspected that patient had an unintentional opioid overdose with worsening of renal function and taking scheduled morphine 15mg ER BID with [place] 7.5/325 1-1.5 tabs PRN q4-6 hours started [...] ? 2. Suspected Aspiration PNA - Daughter (PARTY BUS DRIVER) found patient with large amount of material [...] had been managed by his PMD and FURNACE OPERATOR AND TENDER was on Morphine 15 mg po BID (daughter reported that in the past he was confused with Oxycontin),??[place] 7/325 mg 1 tab po q4-6 h; he is also on scheduled Gabapentin and prn Flexeril -and a recent admission to [facility] from 04/28-04/30 for severe lower [...] Consulted PT/OT. ? 6. H/o HTN - FURNACE OPERATOR AND TENDER on Metoprolol 50 mg po BID for [...] planning totake patient home. Stephany Farley MD [phone] (P) Text page (7am to 6pm) Interval [...] hospital, year, though thought he was in [place], [place]. No acute distress. Non-toxic. Respiratory: Clear [...] Farley MD - 05/07/2017 10:00 PM [facility]T [facility] Date of Service (when I saw the patient): 05/07/2017 Assessment & Plan Speedy Mcduffie is a 76 year old male who was brought in for evaluation of unresponsiveness. ? 1. Altered mental status/Acute toxic encephalopathy Patient found by daughter (Raquel, PARTY BUS DRIVER) after likely prolonged period of unresponsiveness and suspected aspiration. Airway was cleared by daughter, but patient was hypoxic in the 60s for what soundslike at least 40 minutes before oxygen was available. Patient responded to narcan and thus it was suspected that patient had an unintentional opioid overdose with worsening of renal function and taking scheduled morphine 15mg ER BID with [place] 7.5/325 1-1.5 tabs PRN q4-6 hours started [...] ?? 2. Suspected Aspiration PNA - Daughter (PARTY BUS DRIVER) found patient with large amount of material [...] had been managed by his PMD and FURNACE OPERATOR AND TENDER was on Morphine 15 mg po BID (daughter reported that in the past he was confused with Oxycontin),??[place] 7/325 mg 1 tab po q4-6 h; he is also on scheduled Gabapentin and prn Flexeril -and a recent admission to [facility] from 04/28-04/30 for severe lower [...] more alert. ? 6. H/o HTN - FURNACE OPERATOR AND TENDER on Metoprolol 50 mg po BID for HTN. - Holding now with bradycardia. Will follow. - monitor BP ? 7. Dyslipidemia - hold FURNACE OPERATOR AND TENDER Atorvastatin while he is npo ? 8 [...] monitoring in ICU overnight. Stephany Farley MD [phone] (P) Text page (7am to 6pm) Interval History Patient given ativan overnight and somnolent when patient's daughter present during day. Patient also noting headache throughout day. Head CT done without any acute findings. [place] with minimal improvement. Patient's mentation improved by [...] alone. I ordered gabapentin and low dose [place] (home meds). RN concerned about alcohol withdrawal, experiencing hallucinations. CIWA, banana bag and ativan prn ordered for alcohol withdrawal. Stephany Farley MD - 05/06/2017 7:05 PM CDT [facility] Hospitalist Progress Note Date of Service (when I saw the patient): 05/06/2017 Assessment & Plan Speedy Mcduffie is a 76 year old male who was brought in for evaluation of unresponsiveness. ?? 1. Altered mental status/Acute toxic encephalopathy Patient found by daughter (Raquel, PARTY BUS DRIVER) after likely prolonged period of unresponsiveness and suspected aspiration. Airway was cleared, but patient was hypoxic in the 60s for what sounds like at least 20-40 minutes before oxygen was available. Patient responded to narcan and thus it was suspected that patient had an unintentional opioid overdose with worsening of renal function and taking scheduled morphine 15mg ER BID with [place] 7.5/325 1-1.5 tabs PRN q4-6 hours started in the past week. Also had been taking gabapentin and flexeril. - Patient started on narcan drip initially and this has since been stopped. - Appreciate primer boxer recommendations. Had initially planned to transfer to step down this afternoon, but patient having episodes of bradycardia in 40s - 50s, with one strip noting a rate of 29. These seem to happen when patient is sleeping and are sinus in nature. Reinforced Ironworker agrees with keeping patient in the ICU [...] ?? 2. Suspected Aspiration PNA - Daughter (PARTY BUS DRIVER) found patient with large amount of material [...] had been managed by his PMD and FURNACE OPERATOR AND TENDER was on Morphine 15 mg po BID (daughter reported that in the past he was confused with Oxycontin), [place] 7/325 mg 1 tab po q4-6 h; he is also on scheduled Gabapentin and prn Flexeril -and a recent admission to [facility] from 04/28-04/30 for severe lower back pain when tapering Prednisone was added. On prednisone 10mg daily at time of event with plan for 2 more days 10mg and then 3 days 5mg daily. - Holding meds initially. Avoiding narcotics. Will consult PT when more alert. ?? 6. H/o HTN - FURNACE OPERATOR AND TENDER on Metoprolol 50 mg po BID for HTN. - Holding now with episodic bradycardia. Will follow. - monitor BP - Metoprolol iv prn ordered ?? 7. Dyslipidemia - hold FURNACE OPERATOR AND TENDER Atorvastatin while he is npo ?? 8 [...] hypoxia. PT consulted. ?? Stephany Farley MD [phone] (P) Text page (7am to 6pm) Interval [...] 76 yo male found unresponsive, airlifted to [facility] for ongoing treatment of unitnentional overdose [...] in agreement with plan of care Yes [facility] TM 6 Clicks ?? 2016, Trustees of [facility], under license to [employer]. All rights reserved. 6 Clicks Short Forms Basic Mobility Inpatient Short Form [facility]??? 6 Clicks V.2 Basic Mobility Inpatient Short [...] 76 yo male found unresponsive, airlifted to [facility] for ongoing treatment of unitnentional overdose [...] in agreement with plan of care Yes [facility] TM 6 Clicks ?? 2016, Trustees of [facility], under license to [employer]. All rights reserved. 6 Clicks Short Forms Basic Mobility Inpatient Short Form [facility]??? 6 Clicks V.2 Basic Mobility Inpatient Short [...] Total Evaluation Time (Minutes) 10 Marie Zuñiga, PLASTIC MANAGER - 05/06/2017 1:30 PM CDT 05/06/17 0959 [...] aspiration of his vomit. Clinical Swallow Eval: [place] Thick Liquid Texture Trial Mode of Presentation, [place] spoon;self-fed Volume of [place] Presented 3 teaspoons Oral Phase, [place] WFL Pharyngeal Phase, [place] intact Clinical Swallow Eval: Puree Solid Texture [...] Irvin MD - 05/06/2017 9:51 AM CDT [facility] Critical Care Service Progress Note Date of Service: 05/06/2017 Assessment & Plan Speedy Mcduffie is a 76 year old male who was admitted on 05/05/2017 with altered mental status following a possible unintentional narcotic overdose. STOVE REFINISHER: Alert, appropriate, oriented this AM. - Altered [...] FEN/GI: Abdomen benign. - NPO for now. PLASTIC MANAGER evaluation to assess swallow, consider starting diet [...] Today - Stop naloxone infusion. - PT, PLASTIC MANAGER. - Possible transfer from ICU. Interval History [...] Mccullough MD - 05/05/2017 5:34 PM CDT [facility] History and Physical Hospitalist Date of Admission: [...] BID, more recently (last week) started on [place] 7.5/325 mg 1 tab po q4-6h prn - he is also on scheduled Gabapentin and Flexeril prn - his daughter- who is a PARTY BUS DRIVER does not think that he overdosed intentionally; [...] 141/81 - discussed with ICU attending; formal primer boxer consult - continue BiPAP for now- wean [...] had been managed by his PMD and FURNACE OPERATOR AND TENDER was on Morphine 15 mg po BID (daughter reported that in the past he was confused with Oxycontin), [place] 7/325 mg 1 tab po q4-6 h; he is also on scheduled Gabapentin and prn Flexeril -and a recent admission to [facility] from 04/28-04/30 for severe lower back pain when tapering Prednisone was added - it seems that he was doing fine at home, walking with walker - now holding all narcotics, Gabapentin, Flexeril - may need to be seen by PT when he will be more awake 6. H/o HTN - FURNACE OPERATOR AND TENDER on Metoprolol 50 mg po BID- hold it for now given AMS and isolated low BP - monitor BP - Metoprolol iv prn ordered 7. Dyslipidemia - hold FURNACE OPERATOR AND TENDER Atorvastatin while he is npo 8 . 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 History of Present Illness Speedy Mcduffie is [...] time); more recently- he was started on [place] 7/325 mg 1 tab poq4-6 h; he is also on scheduled Gabapentin and prn Flexeril. He was recently admitted to [facility] from 04/28- 04/30/2017 for severe back [...] called 911; he was air lifted to [facility]. As per report- he was given [...] vibration. His coordin ation is intact to [id number]. I did not his gait exam. Impression: [...] additional neurological questions. Arpita Nelson MD Document: [id number] REEDER\. Margaret Laguna MD - 05/08/2017 10:11 AM CDT [facility] Palliative Care Consultation Note Patient: Speedy Mcduffie [...] with any urgent needs. Margaret Laguna Pager: [phone] [facility] Inpatient Team Consult pager [phone] (M-F 8-4:30) After-hours Answering Service [phone] Palliative Clinic: [phone] Assessment Speedy Mcduffie is a 76 year old male with lower back pain 2/2 incomplete sacral fracture after a fall managed conservatively with opioids admitted 05/05 for suspected unintentional opioid overdose and aspiration. Course complicated by acute hypoxic respiratory failure, altered mental status, acute on CKD. Symptoms: Pain: didn't tolerate opioids throughout his treatment course (a little over a week FURNACE OPERATOR AND TENDER): felt somnolent. He doesn't recall making changes [...] done rapidly if he hasn't taken it FURNACE OPERATOR AND TENDER. Lidocaine patches didn't help in the past. Gets good relief with heat and ice, using heating pad now. I feel a trial of low-dose diclofenac with monitoring of his renal function would be a good option at this time. He is already on misoprostol FURNACE OPERATOR AND TENDER, which I assume was started with the [...] Care Planning: patient is working on a [employer] at home, wants to designate his daughters [...] sleep last night, also received one 5/325 [place] about 90min prior to my visit. ROS: [...] TOENAIL(S) 09/30/2012 Procedure: EXCISE TOENAIL(S);; Surgeon: Sal Chaaprro DPM; Location: [facility] OR ??? ORTHOPEDIC SURGERY [...] magnesia daily prn, Senna-docusate prn - none FURNACE OPERATOR AND TENDER: MS Contine 15mg bid Hydrocodone/APAP 7.5/325 1-1.5 [...] reviewed: crea 1.24 (baseline) Margaret Laguna Pager: [phone] [facility] Inpatient Team Consult pager [phone] (M-F 8-4:30) After-hours Answering Service [phone] Palliative Clinic: [phone] Total time spent was 45 minutes, >50% of time was spent counseling and/or coordination of care regarding symptom assessment, disease understanding. Rolando Burrell MD - 05/07/2017 11:00 AM CDT [facility] Cardiology Consultation Date of Admission: 05/05/2017 Rolando [...] HDL, LDL, TRIG, CHOLHDLRATIO in the last 51789 hours. Recent Labs Lab 05/07/17 0450 05/06/1744405/05/17 [...] 9:21 AM CDTAssociated Order(s): CARDIOLOGY IP CONSULT [facility] Cardiology Consultation Date of Admission: 05/05/2017 Date [...] 3 seconds) 2) Altered Mental Status - [place] to be due to incidental opioid overdose [...] opioid therapy. He had recent admission to [facility] between 711 and 713 for severe back [...] Sinus Bradycardia Kamari Jones PA-C 05/07/2017 Pager: [phone] Associated attestation - Hue Klein MD - [...] Irvin MD - 05/05/2017 6:24 PM CDT [facility] History and Physical/ Consult Critical Care Service Date of Admission: 05/05/2017 Date of Service: 05/05/17 Assessment & Plan Speedy Mcduffie is a 76 year old male who presents with altered mental status. 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 Naloxone administered during transport improved his mental status transiently. The patient has a recent sacral fracture which has caused some eetzxfozz-hb-svukchn pain. Past Medical History I have reviewed [...] NEG Ketones Urine Negative NEG mg/dL Specific [place] Urine 1.020 1.003 - 1.035 Blood Urine [...] 05/05/2017 4:45 PM CDT at bedside- hospitalist. Ophleia Monson RN - 05/05/2017 4:11 PM CDT [...] patient was brought by ambulance to a [facility] helicopter and then to the emergency department for evaluation because his other daughter is nurse in the ICU at [facility]. He was not brought to [place] for evaluation because he was initially unresponsive. [...] Remove hardware foot Left lung surgical decortication [place] teeth Family History: History reviewed. No pertinent [...] wave abnormality Abnormal ECG Rate 79 bpm. [place] interval 138. QRS duration 76. QT/QTc 376/431. [...] 05/05/2017 EMERGENCY DEPARTMENT Leesa Martinez MD 05/05/17 [id number] documented in this encounter Miscellaneous Notes Provider Notification - Aubrey Morales, RN - 05/12/2017 3:42 PM CDT Paged and spoke to Dr. Pleitez notified pharmacist from [place] pharmacy called with concern with counter indications with the d/c med sent. Senior Bi Developer given phone number to Dr. Pleitez, she will contact pharmacy to verify. Phone number [phone] Plan of Care - Nai Santacruz PT - 05/12/2017 3:42 PM CDT Problem: Goal Outcome Summary Goal: Goal Outcome Summary Physical Therapy Discharge Summary Reason for therapy discharge: Discharged to home with home therapy. Progress towards therapy goal(s). See goals on Care Plan in [facility] electronic health record for goal details. [...] goal(s). See goals on Care Plan in [facility] electronic health record for goal details. [...] Goal Outcome Summary Goal: Goal Outcome Summary Janitor PT Patient plan for discharge: Home with [...] Goal Outcome Summary Goal: Goal Outcome Summary Janitor PT Patient plan for discharge: None stated [...] PM Plan of Care - Marie Zuñiga, PLASTIC MANAGER - 05/11/2017 10:13 AM CDT Problem: Goal Outcome Summary Goal: Goal Outcome Summary Janitor PLASTIC MANAGER Patient plan for discharge: Patient would like [...] pt for OT session, pt busy with PLASTIC MANAGER and eating breakfast on 1st attempt, 2nd [...] and then 379cc at 1210 and 476cc [id number]. D/c pending, currently recommending TCU. Nrsg will continue to monitor. Plan of Care - Marie Zuñiga SLP - 05/10/2017 1:50 PM CDT Problem: Goal Outcome Summary Goal: Goal Outcome Summary Janitor PLASTIC MANAGER Patient plan for discharge: Patient would like [...] declines/aspiration signs are observed. Plan to continue PLASTIC MANAGER swallow Tx For one mores session to [...] Goal Outcome Summary Goal: Goal Outcome Summary Janitor PT Patient plan for discharge: Pt hopes [...] Goal Outcome Summary Goal: Goal Outcome Summary Janitor OT Patient plan for discharge: home with [...] Outcome: Improving Altered mental status. PT, OT, PLASTIC MANAGER. A/Ox4, forgetful, acute confusion episodes upon waking [...] Goal Outcome Summary Goal: Goal Outcome Summary Janitor PLASTIC MANAGER Patient plan for discharge: Did not state [...] declines/aspiration signs are observed. Plan to continue PLASTIC MANAGER swallow Tx short term to insure diet tolerance and train strategies. Barriers to return to prior living situation: Level of assist per OT/PT needs Recommendations for discharge: Per OT/PT needs; No PLASTIC MANAGER needs likely indicated after discharge Rationale for recommendations: Anticipate PLASTIC MANAGER swallow Tx goal to be be met [...] Goal Outcome Summary Goal: Goal Outcome Summary PLASTIC MANAGER: Attempted to see patient at breakfast for [...] Pt had assist with dressing, and IADLs. Janitor OT Patient plan for discharge: Home with [...] 05/08/2017 11:15 PM CDT Page to MD television installer, pt still tachy in high 115-150s - occasionally will drop below 100 but then tachycardia resumes. Given all PRN options. Orders for meds rec'd/updated in DEC. 0030 Bedside RN went togive meds and HR slowed, sustained into 70's long enough to capture strip. Tele strip printed by this speech writer, pt appears to be in a-flutter. Sent to CCU to verify. 0045 Re-page to MD television installer regarding underlying rhythm. STAT 12 lead ordered. [...] to hospitalist, PRN Metoprolol ordered and given. Senior Bi Developer also instructed to give scheduled BP meds. [...] Goal Outcome Summary Goal: Goal Outcome Summary Janitor PLASTIC MANAGER Patient plan for discharge: Did not state [...] Pt. Lethargic to obtunded all day, Tachy dnai all day without symptoms, bp high apresoline iv [id number] without much improvement. notified at 1300 hospitalist [...] life. Hosptalist ordered to give low dose [place] and stat head CT. Notified primary nurse. Plan of Care - Kassy Chatman SLP - 05/07/2017 2:50 PM CDT Problem: Goal Outcome Summary Goal: Goal Outcome Summary Janitor PLASTIC MANAGER Patient plan for discharge: Did not state [...] PM Plan of Care - Marie Zuñiga PLASTIC MANAGER - 05/07/2017 9:47 AM CDT Problem: Goal Outcome Summary Goal: Goal Outcome Summary PLASTIC MANAGER: Attempted to see patient for swallow treatment [...] metoprolol per prn order after discussing with primer boxer. Pt then had periods of tachy/dani. See [...] Goal Outcome Summary Goal: Goal Outcome Summary Janitor PT PT: Evaluation completed, treatment initiated. 76 [...] Goal Outcome Summary Goal: Goal Outcome Summary Janitor PLASTIC MANAGER Patient plan for discharge: Undetermined Current status: [...] his respiratory status hold the diet. 3. PLASTIC MANAGER will f/u for diet tolerance on 05/07/17. [...] intermittently to vigorous sternal rub. MD aware, primer boxer consult. [place] reassess at 2000 for intubation. CV: SR, pressure stable. Pulm: LS coarse, BIPAP. GI/: Abd distended. Adequate clear urine output. Skin: intact Lines: 2 periph iv Plan: plan to reassess arousal level and ABG at 1999 Pharmacy-Admission Medication History - Victoriano Villa RPH - 05/05/2017 4:44 PM CDT Admission medication history interview status for the 05/05/2017 admission is complete. See [facility] admission navigator for prior to admission medications Medication history source reliability:Good Actions taken by pharmacist (provider contacted, etc):None Additional medication history information not noted on FURNACE OPERATOR AND TENDER med list : ----Pt unresponsive. Medication bottles [...] with Referral Routine Paroxysmal atrial Expected : Shopping Centre Manager fibrillation (H) 05/20 (Approximate), Expires: 05/11/2018 Home Care PT Referral for Referral Routine Enceph alopathy Ordered: Hospital Discharge Aspiration pneumonia, 05/12/2017 unspecified aspiration pneumonia type, unspecified laterality, unspecified part of lung (H) Home Care OT Referral for Referral Routine Enceph alopathy Ordered: Hospital Discharge Aspiration pneumonia, 05/12/2017 unspecified aspiration pneumonia type, unspecified laterality, unspecified part of lung (H) Home Care PLASTIC MANAGER Referral for Referral Routine Encep halopathy Ordered: [...] Time Signature Sodium 144 133 - 144 [place] mmol/L [facility] Potassium 4.0 3.4 - 5.3 [place] mmol/L [facility] Chloride 112 (H) 94 - 109 [place] mmol/L [facility] Carbon Dioxide 22 20 - 32 [place] mmol/L [facility] Anion Gap 10 3 - 14 [place] mmol/L [facility] Glucose 111 (H) 70 - 99 [place] mg/dL [facility] Urea Nitrogen 25 7 - 30 [place] mg/dL [facility] Creatinine 1.55 (H) 0.66 - [place] 1.25 mg/dL [facility] GFR Estimate 44 (L) >60 [place] mL/min/1.[address] Comment: Non GFR Calc GFR Estimate If Black 53 (L) >60 mL/min/1.7m2 F [facility] Comment: GFR Calc Calcium 8.1 (L) 8.5 - 10.1 mg/dL [facility] Specimen Anatomical Collection Method Collection Time Receive d Time (Source) Location / / Volume Laterality Blood specimen 05/12/2017 8:52 AM 017 9:02 (specimen) CDT AM CDT Nikhil Rodriguez DO LAB - BLOOD ORDERABLES Performing Organization Address City/State/ZIP Code Phon e Number [facility] [address] [address] [phone] [facility] [address] [address], [place] [phone] Hemoglobin A1c (05/11/2017 11:37 AM CDT) athologist Signature Hemoglobin A1C 5.6 4.3 - 6.0 [facility] Specimen Anatomical Collection Method Collection Time Receive d Time (Source) Location / / Volume Laterality Blood specimen 05/11/2017 11:37 7 (specimen) AM CDT 11:57 AM CDT Natasha Jen Counters MID LEVEL JAVA DEVELOPER TIMBER GRADER LAB - BLOOD ORDERABLES Performing Organization Address City/State/ZIP Code Phon e Number [facility] [address] [address] [phone] [facility] [address] [address], [place] [phone] Vitamin B12 (05/11/2017 11:37 AM CDT) athologist Signature Vitamin B12 800 193 - 986 [facility] pg/mL [facility] Specimen Anatomical Collection Method Collection Time Receive d Time (Source) Location / / Volume Laterality Blood specimen 05/11/2017 11:37 7 (specimen) AM CDT 11:57 AM CDT Natasha Jen Counters MID LEVEL JAVA DEVELOPER TIMBER GRADER LAB - BLOOD ORDERABLES Performing Organization Address City/State/ZIP Code Phon e Number [address] [address] [facility] Vitamin D Deficiency (05/11/2017 11:37 AM CDT) athologist Signature Vitamin D 26 20 - 75 [facility] Deficiency ug/L [place] [facility] Comment: Season, race, dietary intake, and treatm ent affect the concentration of 50-evhvvde-Gllzduj D. Values may decrea se during winter [...] CDT 11:57 AM CDT Natasha Jen Counters MID LEVEL JAVA DEVELOPER TIMBER GRADER LAB - BLOOD ORDERABLES Performing Organization Address City/[facility]/ZIP Code Phon e Number [id number] [place] [address] (ABNORMAL) Lipid Profile (05/11/2017 11:37 AM CDT) P athologist Signature Cholesterol 128 <200 mg/dL [facility] Triglycerides 164 (H) <150 mg/dL [facility] Comment: Borderline high: ??150-199 mg/dl High: ? 200-499 mg/dl Very high: ? >499 mg/dl HDL Cholesterol 44 >39 mg/dL [facility] LDL Cholesterol Calculated 51 <100 mg/dL [facility] Comment: Desirable: <100 mg/dl Non HDL Cholesterol 84 <130 mg/dL [facility] Specimen Anatomical Collection Method Collection Time Receive d Time (Source) Location / / Volume Laterality Blood specimen 05/11/2017 11:37 7 (specimen) AM CDT 11:57 AM CDT Natasha Jen Counters MID LEVEL JAVA DEVELOPER TIMBER GRADER LAB - BLOOD ORDERABLES Performing Organization Address City/[facility]/ZIP Code Phon e Number [facility] [address] [address] [facility] [address] [address], [place] [phone] Platelet count (05/11/2017 7:17 AM CDT) P athologist Signature Platelet Count 169 150 - 450 [place] 10e9/L [facility] Specimen Anatomical Collection Method Collection Time Receive d Time (Source) Location / / Volume Laterality Blood specimen 05/11/2017 7:17 AM 017 7:30 (specimen) CDT AM CDT Stephany Farley MD LAB - BLOOD ORDERABLES Performing Organization Address City/State/ZIP Code Phon e Number [facility] [address] [place] [address] [facility] [address] [place] [address], [place] [phone] (ABNORMAL) Basic metabolic panel (05/11/2017 7:17 AM CDT) Analysis Performed At Path logist Time Signature Sodium 144 133 - 144 [place] mmol/L [facility] Potassium 3.7 3.4 - 5.3 [place] mmol/L [facility] Chloride 112 (H) 94 - 109 [place] mmol/L [facility] Carbon Dioxide 23 20 - 32 [place] mmol/L [facility] Anion Gap 9 3 - 14 [place] mmol/L [facility] Glucose 94 70 - 99 [place] mg/dL [facility] Urea Nitrogen 25 7 - 30 [place] mg/dL [facility] Creatinine 1.56 (H) 0.66 - [place] 1.25 mg/dL [facility] GFR Estimate 44 (L) >60 [place] mL/min/1.[address] Comment: Non GFR Calc GFR Estimate If Black 53 (L) >60 mL/min/1.7m2 F [facility] Comment: GFR Calc Calcium 8.5 8.5 - 10.1 mg/dL [facility] Specimen Anatomical Collection Method Collection Time Receive d Time (Source) Location / / Volume Laterality Blood specimen 05/11/2017 7:17 AM 017 7:30 (specimen) CDT AM CDT Isra Greene MD LAB - BLOOD ORDERABLES Performing Organization Address City/State/ZIP Code Phon e Number [facility] [address] [place] [address] [facility] [address] [address], [place] [phone] (ABNORMAL) CBC with platelets differential (05/10/2017 7:43 AM CDT) [facility] gist Method Time Signature WBC 7.7 4.0 - [place] 11.[address] RBC Count 3.89 (L) 4.4 - 5.9 [place] 10e12/L [facility] Hemoglobin 12.7 (L) 13.3 - [place] 17.7 g/dL [facility] Hematocrit 37.0 (L) 40.0 - [place] 53.0 % [facility] MCV 95 78 - 100 [place] fl [facility] MCH 32.6 26.5 - [place] 33.0 pg [facility] MCHC 34.3 31.5 - [place] 36.5 g/dL [facility] RDW 13.3 10.0 - [place] 15.0 % [facility] Platelet Count 168 150 - [address] Diff Method Automated [place] Method [facility] % Neutrophils 68.9 % [facility] % Lymphocytes 17.9 % [facility] % Monocytes 9.7 % [facility] % Eosinophils 2.6 % [facility] % Basophils 0.3 % [facility] % Immature 0.6 % [place] Granulocytes [facility] Nucleated RBCs 0 0 /100 [facility] Absolute 5.3 1.6 - 8.3 [place] Neutrophil [address] Absolute 1.4 0.8 - 5.3 [place] Lymphocytes [facility] Absolute 0.8 0.0 - 1.3 [place] Monocytes 10e9[facility] Absolute 0.2 0.0 - 0.7 [place] Eosinophils 10[facility] Absolute 0.0 0.0 - 0.2 [place] Basophils [facility] Abs Immature 0.1 0 - 0.[address] [place] Granulocytes [address] [place] [address] Absolute 0.0 [place] Nucleated RBC [facility] Specimen Anatomical Collection Method Collection Time Receive d Time (Source) Location / / Volume Laterality Blood specimen 05/10/2017 7:43 AM 017 8:05 (specimen) CDT AM CDT Isra Greene MD LAB - BLOOD ORDERABLES Performing Organization Address City/State/ZIP Code Phon e Number [facility] [address] [place] [address] [phone] [facility] [address] [address], [place] [phone] (ABNORMAL) Basic metabolic panel (05/10/2017 7:43 AM CDT) Analysis Performed At Path logis Time Signature Sodium 144 133 - 144 [place] mmol/L [facility] Potassium 3.5 3.4 - 5.3 [place] mmol/L [facility] Chloride 111 (H) 94 - 109 [place] mmol/L [facility] Carbon Dioxide 23 20 - 32 [place] mmol/L [facility] Anion Gap 10 3 - 14 [place] mmol/L [facility] Glucose 97 70 - 99 [place] mg/dL [facility] Urea Nitrogen 24 7 - 30 [place] mg/dL [facility] Creatinine 1.49 (H) 0.66 - [place] 1.25 mg/dL [facility] GFR Estimate 46 (L) >60 [place] mL/min/1.[address] Comment: Non GFR Calc GFR Estimate If Black 56 (L) >60 mL/min/1.7m2 F [facility] Comment: GFR Calc Calcium 8.6 8.5 - 10.1 mg/dL [facility] Specimen Anatomical Collection Method Collection Time Receive d Time (Source) Location / / Volume Laterality Blood specimen 05/10/2017 7:43 AM 017 8:05 (specimen) CDT AM CDT Isra Greene MD LAB - BLOOD ORDERABLES Performing Organization Address City/State/ZIP Code Phon e Number [facility] [address] [address] [facility] [address] [address], [place] [phone] MR Brain w/o & w Contrast (05/09/2017 [...] with platelets differential (05/09/2017 7:27 AM CDT) [facility] gist Method Time Signature WBC 9.5 4.0 - [facility] 11.0 [facility] 10e9/[facility] RBC Count 3.94 (L) 4.4 - 5.9 [place] 10e12/L [facility] Hemoglobin 12.9 (L) 13.3 - [place] 17.7 g/dL [facility] Hematocrit 37.0 (L) 40.0 - [place] 53.0 % [facility] MCV 94 78 - 100 [place] fl [facility] MCH 32.7 26.5 - [facility] 33.0 pg [facility] MCHC 34.9 31.5 - [place] 36.5 g/dL [facility] RDW 13.1 10.0 - [place] 15.0 % [facility] Platelet Count 185 150 - 450 [place] 10e9/L [facility] Diff Method Automated [place] Method [facility] % Neutrophils 74.3 % [facility] % Lymphocytes 13.7 % [facility] % Monocytes 9.3 % [facility] % Eosinophils 2.2 % [facility] % Basophils 0.1 % [facility] % Immature 0.4 % [place] Granulocytes [facility] Nucleated RBCs 0 0 /100 [facility] Absolute 7.1 1.6 - 8.3 [place] Neutrophil 10e9/L [facility] Absolute 1.3 0.8 - 5.3 [place] Lymphocytes 10e9/L [facility] Absolute 0.9 0.0 - 1.3 [place] Monocytes 10e9/L [facility] Absolute 0.2 0.0 - 0.7 [place] Eosinophils 10e9/L [facility] Absolute 0.0 0.0 - 0.2 [place] Basophils 10e9/L [facility] Abs Immature 0.0 0 - 0.4 [place] Granulocytes 10e9/L [facility] Absolute 0.0 [place] Nucleated RBC [facility] Specimen Anatomical Collection Method Collection Time Receive d Time (Source) Location / / Volume Laterality Blood specimen 05/09/2017 7:27 AM 017 7:40 (specimen) CDT AM CDT Stephany Farley MD LAB - BLOOD ORDERABLES Performing Organization Address City/[facility]/ZIP [facility] [facility] [place] Phon e Number [facility] [address] [address] [phone] [facility] [address] [address], [place] [phone] (ABNORMAL) Basic metabolic panel (05/09/2017 7:27 AM CDT) Analysis Performed At Patho logist Time Signature Sodium 142 133 - 144 [place] mmol/L [facility] Potassium 3.5 3.4 - 5.3 [place] mmol/L [facility] Chloride 110 (H) 94 - 109 [place] mmol/L [facility] Carbon Dioxide 21 20 - 32 [place] mmol/L [facility] Anion Gap 11 3 - 14 [place] mmol/L [facility] Glucose 105 (H) 70 - 99 [place] mg/dL [facility] Urea Nitrogen 22 7 - 30 [place] mg/dL [facility] Creatinine 1.44 (H) 0.66 - [place] 1.25 mg/dL [facility] GFR Estimate 48 (L) >60 [place] mL/min/1.[address] Comment: Non GFR Calc GFR Estimate If Black 58 (L) >60 mL/min/1.7m2 F [facility] Comment: GFR Calc Calcium 9.1 8.5 - 10.1 mg/dL [facility] Specimen Anatomical Collection Method Collection Time Receive d Time (Source) Location / / Volume Laterality Blood specimen 05/09/2017 7:27 AM 017 7:40 (specimen) CDT AM CDT Stephany Farley MD LAB - BLOOD ORDERABLES Performing Organization Address City/State/ZIP Code Phon e Number [facility] [address] [place] [address] [facility] [address] [place] [address], [place] [phone] EKG 12-lead, tracing only (05/09/2017 12:59 AM CDT) [facility] Method Time Signature Interpretation ECG Click View RADIOLOGY Image link RESULTS to view waveform and result Specimen (Source) Anatomical Collection Method Collection Time Re ceived Time Location / / Volume Laterality 05/09/2017 12:59 AM CDT Mickey Smith MD ECG ORDERABLES Performing Organization Address City/State/ZIP Code Phon e Number RADIOLOGY RESULTS EKG 12-lead, tracing only (05/08/2017 9:00 PM CDT) [facility] Method Time Signature Interpretation ECG Click [...] Signature Lactic Acid 1.3 0.7 - 2.1 [place] mmol/L [facility] Specimen Anatomical Collection Method Collection Time Receive d Time (Source) Location / / Volume Laterality Blood specimen 05/08/2017 8:45 PM 017 8:58 (specimen) CDT PM CDT Stephany Farley MD LAB - BLOOD ORDERABLES Performing Organization Address City/State/ZIP Code Phon e Number [facility] [address] [place] [address] [phone] [facility] [address] [place] [address], [place] [phone] (ABNORMAL) N-terminal Pro BNP Inpatient (AM Draw) (05/08/2017 5:00 AM CDT) Analysis Performed At Patho logist Time Signature N-Terminal Pro 2,947 (H) 0 - 900 [place] BNP Inpatient pg/mL [facility] Comment: Reference range shown and [...] Address City/State/ZIP Code Phon e Number [facility] [address] [address] [facility] [address] [place] [address], U [phone] (ABNORMAL) CBC with platelets differential (05/08/2017 5:00 AM CDT) [facility] Method Time Signature WBC 12.7 (H) 4.0 - [place] 11.0 [facility] 10e9/L [facility] RBC Count 4.00 (L) 4.4 - 5.9 [place] 10e12/L [facility] Hemoglobin 13.0 (L) 13.3 - [place] 17.7 g/dL [facility] Hematocrit 38.3 (L) 40.0 - [place] 53.0 % [facility] MCV 96 78 - 100 [place] fl [facility] MCH 32.5 26.5 - [place] 33.0 pg [facility] MCHC 33.9 31.5 - [place] 36.5 g/dL [facility] RDW 13.1 10.0 - [place] 15.0 % [facility] Platelet Count 162 150 - 450 [place] 10e9/L [facility] Diff Method Automated [place] Method [facility] % Neutrophils 82.5 % [facility] % Lymphocytes 8.9 % [facility] % Monocytes 6.9 % [facility] % Eosinophils 1.2 % [facility] % Basophils 0.1 % [facility] % Immature 0.4 % [place] Granulocytes [facility] Nucleated RBCs 0 0 /100 [facility] Absolute 10.5 (H) 1.6 - 8.3 [place] Neutrophil 10e9/L [facility] Absolute 1.1 0.8 - 5.3 [place] Lymphocytes 10e9/L [facility] Absolute 0.9 0.0 - 1.3 [place] Monocytes 10e9/L [facility] Absolute 0.2 0.0 - 0.7 [place] Eosinophils 10e9/L [facility] Absolute 0.0 0.0 - 0.2 [place] Basophils 10e9/L [facility] Abs Immature 0.1 0 - 0.4 [place] Granulocytes 10e9/L [facility] Absolute 0.0 [place] Nucleated RBC [facility] Specimen Anatomical Collection Method Collection Time Receive d Time (Source) Location / / Volume Laterality Blood specimen 05/08/2017 5:00 AM 017 5:06 (specimen) CDT AM CDT Stephany Farley MD LAB - BLOOD ORDERABLES Performing Organization Address City/State/ZIP Code Phon e Number [facility] [address] [address] [phone] [facility] [address] [address], [facility] [phone] (ABNORMAL) Basic metabolic panel (05/08/2017 5:00 AM CDT) athologist Signature Sodium 140 133 - 144 [place] mmol/L [facility] Potassium 4.1 3.4 - 5.3 [place] mmol/L [facility] Chloride 109 94 - 109 [place] mmol/L [facility] Carbon Dioxide 20 20 - 32 [place] mmol/L [facility] Anion Gap 11 3 - 14 [place] mmol/L [facility] Glucose 106 (H) 70 - 99 [place] mg/dL [facility] Urea Nitrogen 19 7 - 30 [place] mg/dL [facility] Creatinine 1.24 0.66 - [place] 1.25 mg/dL [facility] GFR Estimate 57 (L) >60 [place] mL/min/1.[address] Comment: Non GFR Calc GFR Estimate If Black 69 >60 mL/min/1.7m2 F [facility] Comment: GFR Calc Calcium 8.8 8.5 - 10.1 mg/dL [facility] Specimen Anatomical Collection Method Collection Time Receive d Time (Source) Location / / Volume Laterality Blood specimen 05/08/2017 5:00 AM 017 5:06 (specimen) CDT AM CDT Stephany Farley MD LAB - BLOOD ORDERABLES Performing Organization Address City/State/ZIP Code Phon e Number [facility] [address] [address] [facility] [address] [address], [place] [phone] CT Head w/o Contrast (05/07/2017 5:04 PM [...] 7 4:25 CDT PM CDT Miladys [facility] POCT Performing Organization Address City/State/ZIP Code Phon e Number FV POINT OF CARE TEST, GLUCOSE POINT OF CARE TEST, GLUCOSE ECHO COMPLETE WITH OPTISON (05/07/2017 11:36 AM CDT) Anatomical Region Laterality Modality Echocardiography Specimen (Source) Anatomical Collection Method Collection Time Re ceived Time Location / / Volume Laterality 05/07/2017 10:53 AM CDT Narrative 05/07/2017 1:17 PM T [id number] [facility] [id number]^RUSTY^KAMARI^ [facility] Echocardiography Laboratory [address] [place] [address], [place] [address] Name: SPEEDY MCDUFFIE : 1940 Study Date: 05/07/2017 10:53 AM Age: 76 yrs Gender: Male Patient Location: [facility] Reason For Study: Afib Ordering Physician: [...] note might be different from the original. [id number]^RUSTY^KAMARI^ [facility] Echocardiography Laboratory [address] [place] [id number] Name: SPEEDY MCDUFFIE : 1940 Study Date: 05/07/2017 10:53 AM Age: 76 yrs Gender: Male Patient Location: [facility] Reason For Study: Afib Ordering Physician: [...] Signature Bilirubin Direct 0.2 0.0 - 0.2 [place] mg/dL [facility] Bilirubin Total 0.5 0.2 - 1.3 [place] mg/dL [facility] Albumin 2.6 (L) 3.4 - 5.0 [place] g/dL [facility] Protein Total 6.2 (L) 6.8 - 8.8 [place] g/dL [facility] Alkaline 156 (H) 40 - 150 [place] Phosphatase U/L [facility] ALT 34 0 - 70 U/L [facility] AST 46 (H) 0 - 45 U/L [facility] Specimen Anatomical Collection Method Collection Time Receive d Time (Source) Location / / Volume Laterality Blood specimen 05/07/2017 4:50 AM 017 4:55 (specimen) CDT AM CDT Stephany Farley MD LAB - BLOOD ORDERABLES Performing Organization Address City/State/ZIP Code Phon e Number [facility] [address] [address] [phone] [facility] [address] [address], [place] [phone] (ABNORMAL) Basic metabolic panel (05/07/2017 4:50 AM CDT) Analysis Performed At Patho logist Time Signature Sodium 143 133 - 144 [place] mmol/L [facility] Potassium 4.8 3.4 - 5.3 [place] mmol/L [facility] Chloride 114 (H) 94 - 109 [place] mmol/L [facility] Carbon Dioxide 20 20 - 32 [place] mmol/L [facility] Anion Gap 9 3 - 14 [place] mmol/L [facility] Glucose 130 (H) 70 - 99 [place] mg/dL [facility] Urea Nitrogen 25 7 - 30 [place] mg/dL [facility] Creatinine 1.52 (H) 0.66 - [place] 1.25 mg/dL [facility] GFR Estimate 45 (L) >60 [place] mL/min/1.[address] Comment: Non GFR Calc GFR Estimate If Black 54 (L) >60 mL/min/1.7m2 F [facility] Comment: GFR Calc Calcium 8.8 8.5 - 10.1 mg/dL [facility] Specimen Anatomical Collection Method Collection Time Receive d Time (Source) Location / / Volume Laterality Blood specimen 05/07/2017 4:50 AM 017 4:55 (specimen) CDT AM CDT Stephany Farley MD LAB - BLOOD ORDERABLES Performing Organization Address City/State/ZIP Code Phon e Number [facility] [address] [address] [phone] [facility] [address] [address], [facility] [phone] Magnesium (05/07/2017 4:50 AM CDT) P athologist Signature Magnesium 2.3 1.6 - 2.3 [place] mg/dL [facility] Specimen Anatomical Collection Method Collection Time Receive d Time (Source) Location / / Volume Laterality Blood specimen 05/07/2017 4:50 AM 017 4:55 (specimen) CDT AM CDT Stephany Farley MD LAB - BLOOD ORDERABLES Performing Organization Address City/State/ZIP Code Phon e Number [facility] [address] [place], [place] [address] [facility] [address] [place] [address], [place] [phone] Phosphorus (05/07/2017 4:50 AM CDT) P athologist Signature Phosphorus 3.3 2.5 - 4.5 [place] mg/dL [facility] Specimen Anatomical Collection Method Collection Time Receive d Time (Source) Location / / Volume Laterality Blood specimen 05/07/2017 4:50 AM 017 4:55 (specimen) CDT AM CDT Stephany Farley MD LAB - BLOOD ORDERABLES Performing Organization Address City/State/ZIP Code Phon e Number [facility] [address] [place] [address] [facility] [address] [place] [address], [place] [phone] (ABNORMAL) CBC with platelets differential (05/07/2017 4:50 AM CDT) Component Value Ref Test Analysis Performed At [facility] Range Method Time Signature WBC 11.9 (H) 4.0 - [place] 11.0 [facility] 10e9/L [facility] RBC Count 3.79 (L) 4.4 - [place] 5.9 [facility] 10e12/L [facility] Hemoglobin 12.5 (L) 13.3 - [place] 17.7 [facility] g/dL [facility] Hematocrit 37.5 (L) 40.0 - [place] 53.0 % [facility] MCV 99 78 - 100 [facility] MCH 33.0 26.5 - [place] 33.0 pg [facility] MCHC 33.3 31.5 - [place] 36.5 [facility] g/dL [facility] RDW 13.5 10.0 - [place] 15.0 % [facility] Platelet Count 150 150 - [place] 450 [facility] 10e9/L [facility] Diff Method Manual [place] Differential [facility] % Neutrophils 92.0 % [facility] % Lymphocytes 3.0 % [facility] % Monocytes 5.0 % [facility] % Eosinophils 0.0 % [facility] % Basophils 0.0 % [facility] Absolute 10.9 (H) 1.6 - [place] Neutrophil 8.3 [facility] 10e9/L [facility] Absolute 0.4 (L) 0.8 - [place] Lymphocytes 5.3 [facility] 10e9/L [facility] Absolute 0.6 0.0 - [place] Monocytes 1.3 [facility] 10e9/L [facility] Absolute 0.0 0.0 - [place] Eosinophils 0.7 [facility] 10e9/L [facility] Absolute 0.0 0.0 - [place] Basophils 0.2 [facility] [address] RBC Morphology Normal [facility] Platelet Confirming [place] Estimate automated cell [facility] Specimen Anatomical Collection Method Collection Time Receive d Time (Source) Location / / Volume Laterality Blood specimen 05/07/2017 4:50 AM 017 4:55 (specimen) CDT AM CDT Stephany Farley MD LAB - BLOOD ORDERABLES Performing Organization Address City/State/ZIP Code Phon e Number [facility] [address] [address] [phone] [facility] [address] [address], [place] [phone] Calcium (05/06/2017 5:18 PM CDT) P athologist Signature Calcium 8.6 8.5 - 10.1 [place] mg/dL [facility] Specimen Anatomical Collection Method Collection Time Receive d Time (Source) Location / / Volume Laterality Blood specimen 05/06/2017 5:18 PM 017 5:23 (specimen) CDT PM CDT Jaswinder Goins MD LAB - BLOOD ORDERABLES Performing Organization Address City/State/ZIP Code Phon e Number [facility] [address] [address] [phone] [facility] [address] [address], [place] [phone] Magnesium (1200) (05/06/2017 5:18 PM CDT) P athologist Signature Magnesium 1.9 1.6 - 2.3 [place] mg/dL [facility] Specimen Anatomical Collection Method Collection Time Receive d Time (Source) Location / / Volume Laterality Blood specimen 05/06/2017 5:18 PM 017 5:23 (specimen) CDT PM CDT Jaswinder Goins MD LAB - BLOOD ORDERABLES Performing Organization Address City/State/ZIP Code Phon e Number [facility] [address] [place] [address] [phone] [facility] [address] [place] [address], [place] [phone] EKG 12-lead, tracing only (05/06/2017 5:08 PM CDT) Patholo gist Method Time Signature Interpretation ECG Click View RADIOLOGY Image link RESULTS to view waveform and result Specimen (Source) Anatomical Collection Method Collection Time Re ceived Time Location / / Volume Laterality 05/06/2017 5:08 PM CDT Jaswinder Goins MD ECG ORDERABLES Performing Organization Address City/[facility]/ZIP Code Phon e Number RADIOLOGY RESULTS (ABNORMAL) CBC with platelets (05/06/2017 4:45 AM CDT) Analysis Performed At Patho logist Time Signature WBC 14.4 (H) 4.0 - 11.0 [place] 10e9/L [facility] RBC Count 3.85 (L) 4.4 - 5.9 [place] 10e12/L [facility] Hemoglobin 12.5 (L) 13.3 - [place] 17.7 g/dL [facility] Hematocrit 38.3 (L) 40.0 - [place] 53.0 % [facility] MCV 100 78 - 100 [place] fl [facility] MCH 32.5 26.5 - [place] 33.0 pg [facility] MCHC 32.6 31.5 - [place] 36.5 g/dL [facility] RDW 13.3 10.0 - [place] 15.0 % [facility] Platelet Count 135 (L) 150 - 450 [place] 10e9/L [facility] Specimen Anatomical Collection Method Collection Time Receive d Time (Source) Location / / Volume Laterality Blood specimen 05/06/2017 4:45 AM 017 4:54 (specimen) CDT AM CDT Miladys Mccullough MD LAB - BLOOD ORDERABLES Performing Organization Address City/[facility]/ZIP Code Phon e Number [facility] [address] [place] [address] [facility] [address] [place] [address], [place] [phone] (ABNORMAL) Hepatic panel (05/06/2017 4:45 AM CDT) Analysis Performed At Patho logist Time Signature Bilirubin Direct 0.2 0.0 - 0.2 [place] mg/dL [facility] Bilirubin Total 0.6 0.2 - 1.3 [place] mg/dL [facility] Albumin 2.6 (L) 3.4 - 5.0 [place] g/dL [facility] Protein Total 6.0 (L) 6.8 - 8.8 [place] g/dL [facility] Alkaline 144 40 - 150 [place] Phosphatase U/L [facility] ALT 33 0 - 70 U/L [facility] AST 57 (H) 0 - 45 U/L [facility] Specimen Anatomical Collection Method Collection Time Receive d Time (Source) Location / / Volume Laterality Blood specimen 05/06/2017 4:45 AM 017 4:54 (specimen) CDT AM CDT Miladys Mccullough MD LAB - BLOOD ORDERABLES Performing Organization Address City/State/ZIP Code Phon e Number [facility] [address] [place] [address] [facility] [address] [place] [address], [place] [phone] (ABNORMAL) Basic metabolic panel (05/06/2017 4:45 AM CDT) Analysis Performed At Patho logist Time Signature Sodium 143 133 - 144 [place] mmol/L [facility] Potassium 4.5 3.4 - 5.3 [place] mmol/L [facility] Chloride 115 (H) 94 - 109 [place] mmol/L [facility] Carbon Dioxide 20 20 - 32 [place] mmol/L [facility] Anion Gap 8 3 - 14 [place] mmol/L [facility] Glucose 129 (H) 70 - 99 [place] mg/dL [facility] Urea Nitrogen 39 (H) 7 - 30 [place] mg/dL [facility] Creatinine 1.79 (H) 0.66 - [place] 1.25 mg/dL [facility] GFR Estimate 37 (L) >60 [place] mL/min/1.[address] Comment: Non GFR Calc GFR Estimate If Black 45 (L) >60 mL/min/1.7m2 F [facility] Comment: GFR Calc Calcium 7.8 (L) 8.5 - 10.1 mg/dL [facility] Specimen Anatomical Collection Method Collection Time Receive d Time (Source) Location / / Volume Laterality Blood specimen 05/06/2017 4:45 AM 017 4:54 (specimen) CDT AM CDT Miladys Mccullough MD LAB - BLOOD ORDERABLES Performing Organization Address City/State/ZIP Code Phon e Number [facility] [address] [address] [facility] [address] [address], [facility] [phone] (ABNORMAL) Glucose by meter (05/06/2017 4:17 AM [...] Time Signature Sodium 144 133 - 144 [place] mmol/L [facility] Potassium 5.0 3.4 - 5.3 [place] mmol/L [facility] Chloride 113 (H) 94 - 109 [place] mmol/L [facility] Carbon Dioxide 21 20 - 32 [place] mmol/L [facility] Anion Gap 10 3 - 14 [place] mmol/L [facility] Glucose 148 (H) 70 - 99 [place] mg/dL [facility] Urea Nitrogen 46 (H) 7 - 30 [place] mg/dL [facility] Creatinine 1.95 (H) 0.66 - [place] 1.25 mg/dL [facility] GFR Estimate 34 (L) >60 [place] mL/min/1.[address] Comment: Non GFR Calc GFR Estimate If Black 41 (L) >60 mL/min/1.7m2 F [facility] Comment: GFR Calc Calcium 7.8 (L) 8.5 - 10.1 mg/dL [facility] Specimen Anatomical Collection Method Collection Time Receive d Time (Source) Location / / Volume Laterality Blood specimen 05/05/2017 10:35 7 (specimen) PM CDT 10:46 PM CDT Milayds Mccullough MD LAB - BLOOD ORDERABLES Performing Organization Address City/State/ZIP Code Phon e Number [facility] [address] [address] [facility] [address] [address], [place] [phone] (ABNORMAL) Blood gas arterial with oxyhemoglobin (1200) (05/05/2017 8:20 PM CDT) Patholo gist Method Time Signature pH Arterial 7.23 (L) 7.35 - VA[place] 7.45 pH [facility] pCO2 Arterial 45 35 - 45 [place] mm Hg [facility] pO2 Arterial 159 (H) 80 - 105 [place] mm Hg [facility] Bicarbonate 19 (L) 21 - 28 [place] Arterial mmol/L [facility] FIO2 BIPAP [place] 60 [facility] Oxyhemoglobin 99 92 - 100 [place] Arterial % [facility] Base Deficit Art 8.2 mmol/L [facility] Comment: Reference range: -9.0 to 1.8 Specimen Anatomical Collection Method Collection Time Receive d Time (Source) Location / / Volume Laterality Blood specimen 05/05/2017 8:20 PM 017 8:25 (specimen) CDT PM CDT Aubrey Irvin MD LAB - BLOOD ORDERABLES Performing Organization Address City/State/ZIP Code Phon e Number [facility] [address] [place] [address] [facility] [address] [place] [address], [facility] [phone] (ABNORMAL) Glucose by meter (05/05/2017 8:06 PM [...] PM CDT Miladys Mccullough MD LAB - [employer] POCT Performing Organization Address City/State/ZIP Code Phon [...] negative amphetamine is 500 ng/mL or less. [facility] Barbiturates Qual Negative NEG [facility] Urine Cutoff for a negative barbiturate is 200 ng/mL or less. [facility] Benzodiazepine Negative NEG [facility] Qual Urine Cutoff for a negative benzodiazepine is 200 ng/mL or less . [facility] Cannabinoids Qual Negative NEG [facility] Urine Cutoff for a negative cannabinoid is 50 ng/mL or less. [facility] Cocaine Qual Negative NEG [facility] Urine Cutoff for a negative cocaine is 300 ng/mL or less. [facility] Opiates Positive NEG [facility] Qualitative Urine Cutoff for a positive opiat e is greater than 300 ng/mL. This is an unconfirmed [facility] screening result to be used for medical purposes only. HOSPITAL (A) PCP Qual Urine Negative NEG [facility] Cutoff for a negative PCP is 25 ng/mL or less. [facility] Specimen Anatomical Collection Method Collection Time Receive d Time (Source) Location / / Volume Laterality 05/05/2017 5:20 PM 7 7:11 CDT PM CDT Miladys Mccullough MD LAB - URINE ORDERABLES Performing Organization Address City/State/ZIP Code Phon e Number [facility] [address] [place] [address] [facility] [address] [place] [address], [place] [phone] (ABNORMAL) Urine Microscopic (05/05/2017 5:20 PM CDT) [facility] [employer] Method Time Signature WBC Urine O - 2 0 - 2 [place] /HPF [facility] RBC Urine O - 2 0 - 2 [facility] /HPF [facility] Cast Urine 2-5 0 - 2 [place] HYALINE /LPF [facility] Bacteria Urine Few (A) NEG /HPF [facility] Mucous Urine Present (A) NEG /LPF [facility] Specimen Anatomical Collection Method Collection Time Receive d Time (Source) Location / / Volume Laterality 05/05/2017 5:20 PM 7 5:29 CDT PM CDT Miladys Mccullough MD LAB - URINE ORDERABLES Performing Organization Address City/State/ZIP Code Phon e Number [facility] [address] [place], [place] [address] (ABNORMAL) UA reflex to Microscopic and Culture (05/05/2017 5:20 PM CDT) Component Value Ref Test Analysis Performed At [facility] [employer] Range Method Time Signature Color Urine Yellow [facility] Appearance Urine Clear [facility] Glucose Urine Negative NEG [place] mg/dL [facility] Bilirubin Urine Negative NEG [facility] Ketones Urine Negative NEG [place] mg/dL [facility] Specific [place] 1.020 1.003 - [place] Urine 1.035 [facility] Blood Urine Negative NEG [facility] pH Urine 5.5 5.0 - [place] 7.0 pH [facility] Protein Albumin 30 (A) NEG [facility] Urine mg/dL [facility] Urobilinogen 0.2 0.2 - [facility] Urine 1.0 [facility] EU/dL [place] Nitrite Urine Negative NEG [facility] [place] Leukocyte Negative NEG [facility] Esterase Urine [facility] [place] Source Catheterized [facility] Urine [facility] [place] Specimen Anatomical Collection Method Collection Time Receive d Time (Source) Location / / Volume Laterality 05/05/2017 5:20 PM 7 5:29 CDT PM CDT Miladys Mccullough MD LAB - URINE ORDERABLES Performing Organization Address City/[facility]/ZIP Code Phon e Number [facility] [place] [address] [place] [address] Blood culture (05/05/2017 4:30 PM CDT) [facility] gist Method Time Signature Specimen Blood Left [facility] Special Aerobic and VA[place] Requests anaerobic [facility] bottles [place] received Culture Micro No growth [...] MICRO GENERAL ORDERABL ES Performing Organization Address City/[facility]/ZIP [facility] Phon e Number INFECTIOUS DISEASES [address] [place] [address] DIAGNOSTIC LABORATORY, [address] [address] [address] [place] [address], [facility] [place] INFECTIOUS DISEASE [address] [place] [address], [facility] DIAGNOSTIC LABORATORY Lactic acid whole blood (05/05/2017 3:50 PM CDT) P athologist Signature Lactic Acid 1.5 0.7 - 2.1 [place] mmol/L [facility] Specimen Anatomical Collection Method Collection Time Receive d Time (Source) Location / / Volume Laterality 05/05/2017 3:50 PM 7 4:06 CDT PM CDT Leesa Martinez MD LAB - BLOOD ORDERABLES Performing Organization Address City/State/ZIP Code Phon e Number [facility] [address] [address] [phone] [facility] [address] [address], [facility] [phone] Blood culture (05/05/2017 3:45 PM CDT) [facility] gist Method Time Signature Specimen Blood Left [facility] Special Aerobic and VA[place] Requests anaerobic [facility] ED bottles [place] received Culture Micro [...] Code Phon e Number INFECTIOUS DISEASES [address] [place] [address] DIAGNOSTIC LABORATORY, [address] [address], [facility] [address] [address], [facility] [place] INFECTIOUS DISEASE [address] [place], [place] [address] DIAGNOSTIC LABORATORY Chest XR, 1 view [...] Signature pH Arterial 7.22 (L) 7.35 - VAIL 7.45 pH [facility] pCO2 Arterial 48 (H) 35 - 45 [place] mm Hg [facility] pO2 Arterial 112 (H) 80 - 105 [place] mm Hg [facility] Bicarbonate 20 (L) 21 - 28 [place] Arterial mmol/L [facility] Oxyhemoglobin 97 92 - 100 [place] Arterial % [facility] Base Deficit Art 7.5 mmol/L [facility] Comment: Reference range: -9.0 to 1.8 Specimen Anatomical Collection Method Collection Time Receive d Time (Source) Location / / Volume Laterality Blood specimen 05/05/2017 3:33 PM 017 3:54 (specimen) CDT PM CDT Leesa Martinez MD LAB - BLOOD ORDERABLES Performing Organization Address City/State/ZIP Code Phon e Number [facility] [address] [address] [facility] [address] [address], U [phone] Troponin POCT (05/05/2017 3:29 PM CDT) P [...] LAB - BEAKER POCT Performing Organization Address [facility] Phon e Number FV POINT OF CARE TEST, HANDHELD METER POINT OF CARE TEST, HANDHELD METER EKG 12 lead (05/05/2017 3:24 PM CDT) [facility] gist Method Time Signature Interpretation ECG Click View RADIOLOGY Image link RESULTS to view waveform and result Specimen (Source) Anatomical Collection Method Collection Time Re ceived Time Location / / Volume Laterality 05/05/2017 3:24 PM CDT Leesa Martinez MD ECG ORDERABLES Performing Organization Address City/[facility]/ZIP Code Phon e Number RADIOLOGY RESULTS (ABNORMAL) Glucose by meter (05/05/2017 3:23 PM CDT) P athologist Signature Glucose 116 (H) 70 - 99 POINT OF CARE mg/dL TEST, GLUCOSE Specimen Anatomical Collection Method Collection Time Receive d Time (Source) Location / / Volume Laterality 05/05/2017 3:23 PM 7 3:25 CDT PM CDT Provider Unknown LAB - BEAKER POCT Performing Organization Address City/[facility]/ZIP Code Phon e Number [facility]V POINT OF CARE TEST, GLUCOSE POINT OF CARE TEST, GLUCOSE (ABNORMAL) CK total (05/05/2017 3:20 PM CDT) P athologist Signature CK Total 325 (H) 30 - 300 VAIL U/L [facility] Specimen Anatomical Collection Method Collection Time Receive d Time (Source) Location / / Volume Laterality 05/05/2017 3:20 PM 7 3:31 CDT PM CDT Leesa Martinez MD LAB - BLOOD ORDERABLES Performing Organization Address City/State/ZIP Code Phon e Number [facility] [address] [place] [address] [facility] [address] [place] [address], [place] [phone] Alcohol ethyl (05/05/2017 3:20 PM CDT) P athologist Signature Ethanol g/dL <0.01 <0.01 g/dL [facility] Specimen Anatomical Collection Method Collection Time Receive d Time (Source) Location / / Volume Laterality 05/05/2017 3:20 PM 7 3:31 CDT PM CDT Leesa Martinez MD LAB - BLOOD ORDERABLES Performing Organization Address City/State/ZIP Code Phon e Number [facility] [address] [place] [address] [phone] [facility] [address] [place] [address], [place] [phone] Salicylate level (05/05/2017 3:20 PM CDT) [facility] gist Method Time Signature Salicylate <2 mg/dL [facility] Therapeutic: ?<20 [facility] [place] Anti inflammatory: ??15-30 [facility] Specimen Anatomical Collection Method Collection Time Receive d Time (Source) Location / / Volume Laterality Blood specimen 05/05/2017 3:20 PM 017 3:31 (specimen) CDT PM CDT Leesa Martinez MD LAB - BLOOD ORDERABLES Performing Organization Address City/State/ZIP Code Phon e Number [facility] [address] [place] [address] [phone] [facility] [address] [place] [address], [place] [phone] Acetaminophen level (05/05/2017 3:20 PM CDT) Component Value Ref Test Analysis Performed At Patholo gist Range Method Time Signature Acetaminophen <2 mg/L [facility] Level Therapeutic range: 10-20 mg/L [facility] Specimen Anatomical Collection Method Collection Time Receive d Time (Source) Location / / Volume Laterality Blood specimen 05/05/2017 3:20 PM 017 3:31 (specimen) CDT PM CDT Leesa Martinez MD LAB - BLOOD ORDERABLES Performing Organization Address City/State/ZIP Code Phon e Number [facility] [address] [place] [address] [facility] [address] [place] [address], [place] [phone] (ABNORMAL) Comprehensive metabolic panel (05/05/2017 3:20 PM CDT) Analysis Performed At [facility] logist Time Signature Sodium 141 133 - 144 [place] mmol/L [facility] Potassium 4.4 3.4 - 5.3 [place] mmol/L [facility] Chloride 107 94 - 109 [place] mmol/L [facility] Carbon Dioxide 23 20 - 32 [place] mmol/L [facility] Anion Gap 11 3 - 14 [place] mmol/L [facility] Glucose 126 (H) 70 - 99 [place] mg/dL [facility] Urea Nitrogen 48 (H) 7 - 30 [place] mg/dL [facility] Creatinine 2.41 (H) 0.66 - VAIL 1.25 mg/dL [facility] GFR Estimate 26 (L) >60 [place] mL/min/1.[address] Comment: Non GFR Calc GFR Estimate If Black 32 (L) >60 mL/min/1.7m2 [facility] Comment: GFR Calc Calcium 8.6 8.5 - 10.1 mg/dL [facility] Bilirubin Total 0.5 0.2 - 1.3 mg/dL [facility] Albumin 3.3 (L) 3.4 - 5.0 g/dL [facility] Protein Total 6.9 6.8 - 8.8 g/dL [facility] Alkaline Phosphatase 166 (H) 40 - 150 U/L [facility] ALT 29 0 - 70 U/L [facility] AST 22 0 - 45 U/L [facility] Specimen Anatomical Collection Method Collection Time Receive d Time (Source) Location / / Volume Laterality Blood specimen 05/05/2017 3:20 PM 017 3:31 (specimen) CDT PM CDT Lesea Martinez MD LAB - BLOOD ORDERABLES Performing Organization Address City/State/ZIP Code Phon e Number [facility] [address] [address] [facility] [address] [address], [place] [phone] (ABNORMAL) CBC with platelets differential (05/05/2017 3:20 PM CDT) [facility] gist Method Time Signature WBC 17.7 (H) 4.0 - VAIL 11.0 [facility] 10e9/L [facility] RBC Count 4.32 (L) 4.4 - 5.9 [place] 10e12/L [facility] Hemoglobin 14.3 13.3 - VAIL 17.7 g/dL [facility] Hematocrit 42.9 40.0 - [place] 53.0 % [facility] MCV 99 78 - 100 [facility] MCH 33.1 (H) 26.5 - VAIL 33.0 pg [facility] MCHC 33.3 31.5 - [place] 36.5 g/dL [facility] RDW 13.0 10.0 - [place] 15.0 % [facility] Platelet Count 170 150 - 450 [place] 10e9/L [facility] Diff Method Automated [facility] % Neutrophils 83.6 % [facility] % Lymphocytes 9.3 % [facility] % Monocytes 6.0 % [facility] % Eosinophils 0.7 % [facility] % Basophils 0.1 % [facility] % Immature 0.3 % [place] Granulocytes [facility] Nucleated RBCs 0 0 /100 [facility] Absolute 14.8 (H) 1.6 - 8.3 [place] Neutrophil 10e9/L [facility] Absolute 1.7 0.8 - 5.3 [place] Lymphocytes 10e9/L [facility] Absolute 1.1 0.0 - 1.3 [place] Monocytes 10e9/L [facility] Absolute 0.1 0.0 - 0.7 [place] Eosinophils 10e9/L [facility] Absolute 0.0 0.0 - 0.2 [place] Basophils 10e9/L [facility] Abs Immature 0.1 0 - 0.4 [place] Granulocytes 10e9/L [facility] Absolute 0.0 [place] Nucleated RBC [facility] Specimen Anatomical Collection Method Collection Time Receive d Time (Source) Location / / Volume Laterality Blood specimen 05/05/2017 3:20 PM 017 3:31 (specimen) CDT PM CDT Leesa Martinez MD LAB - BLOOD ORDERABLES Performing Organization Address City/State/ZIP Code Phon e Number [facility] [address] [address] [phone] [facility] [address] [address], [facility] [phone] documented in this encounter Visit Diagnoses Diagnosis [...] foil and gently remove. Place on to [facility] immediately. Administration with liquid unnecessary [...] mg 0825 (Given - Provider: Aubrey Morales RN)3905 (Given - Provider: Rosette Reese RN)3116 (Given - Provider: Rosette Reese RN) 0921 (Given - Provider: Aubrey Morales RN)1625 (Given - Provider: Joaquina Acosta RN)2212 (Given - Provider: Joaquina Acosta RN) 0914 [...] Reason: IV Infusing)1000 (Not Given - Provider: Aburey Morales RN - Reason: IV Infusing) 3 [...] Irritant.
documented in this encounter Care Teams Email Engineer Relationship Specialty Start Date End Date Eduardo Coleyit PCP - General Family Practice 05/05/17 05/11/[address] [address] [facility] [place] [facility] - General 05/12/17 [address] [place] [address] documented as of this encounter
--- OUTSIDE RECORDS SUMMARY | 2022-06-20 08:54 | XMS_ITS | Encounter Summary ---
:1940 Author Organization [facility] Address [address] [place] [id number] Care Team Providers Name Role Phone Celina Coley Primary Care Provider Reason for Visit Auth/Cert Specialty Diagnoses / Procedures Referred By Contact Refer red To Contact Intensive Care Diagnoses Opioid overdose, accidental or unintentional, initial encounter (H) Aspiration pneumonia, unspecified aspiration pneumonia type, unspecified laterality, unspecified part of lung (H) Unresponsiveness Intensive Care [address] [phone] Phone: Referral ID Status Reason Start Date Expiration Date Visits Requ ested Visits Authorized [id number] 1 1 Encounter Details Date Type Department Care Team Description 05/06/2017 Anesthesia Event [facility] BOAT PERSON MEDICAL ADMINISTRATIVE ASSISTANT [address] [place] [address] ANES [phone] [place] [address] (Wo rk) Anesthesia Record Procedure Summary Procedure Name Responsible Anesthesiologist Anesthesia Start Ti me Anesthesia Stop Time IV START 05/06/17212005/06/172140 Events Date Time Event Comment 05/06/20172120 An Start 2140 Quick Note Diagnosis: Venou s Insufficiency Procedure: IV Start Ordering Yadirai an: Dr Rodriguez Location:[facility] ICU 357 2141 An Stop Electronically s [...] RN Darby, Timo thy J, (difficulty standing, BOAT PERSON [employer] alerted mental status) Peripheral IV 05/06/17; 2135; 20 G; 05/06/17 2135 by 05/08/17 0300 by Right; Lower forearm; Albino Benavidez APRN Graa lum, Scott, RN Alcohol; Injectable; MEDICAL ADMINISTRATIVE ASSISTANT Tolerated well Peripheral IV 05/06/17; 2140; 20 G; 05/06/17 2140 by 05/08/17 1619 by Right; Upper forearm; Albino Benavidez APRN With am Rosette Alcohol; Injectable; MEDICAL ADMINISTRATIVE ASSISTANT JOSE Clifton Tolerated well documented in this [...] on filedocumented in this encounter Care Teams Tub Attendant Relationship Specialty Start Date End Date Celina Coley PCP - General Family Practice 05/05/17 05/11/[address] [address] documented as of this encounter
--- OUTSIDE RECORDS SUMMARY | 2022-06-20 08:54 | XMS_ITS | Encounter Summary ---
:1940 Author Organization [facility] Address [address] [place] [address] Care Team Providers Name Role Phone Primary Dr, Unknown MD Primary Care Provider Unavailable Reason for Visit Reason Comments Back Pain Leg Pain Encounter Details Date Type Department Care Team Description [facility] [address] [place] [address] Acute low back pain 04/30/2017 Encounter [facility] Dilshad John MD [address] [place] [address] due to trauma [address] Provider, Historical [address] [place] [phone] Social History Tobacco Use Types Packs/Day Years [...] John MD - 04/30/2017 2:09 PM CDT [facility] MEDICINE DISCHARGE SUMMARY Primary Care [...] COURSE: Nondisplaced insufficiency type sacral fractures - [facility] consult, patient of Dr Mcclure and his injury was described to him -no surgery inidcated - IV dilaudid. He also does ok with oral oxycodone and Alpine - taper off IV opioids and optimize [...] MULTIVITAMIN Tab Dose: 1 tablet Generic drug: multivitamin,id-sxrb-guzdsspf 1 tablet, Oral, DAILY desonide 0.05 % [...] in 2-3 weeks or as needed at [facility]. Call our scheduling line at [phone] to make an appointment if you do [...] Comments Follow-up in: [facility] Follow-up appointment with Primary [...] EMR for more detailed significant labs, imaging, cosmetic consultant notes etc. Total time spent on [...] Ca Plunkett - 04/30/2017 12:19 PM CDT EAR FLAP BINDER TREATMENT NOTE Name: Speedy Hendricks : 1940 [...] much better. Daughter will transport. TANJA Rodríguez HAND CLOTH FOLDER 04/30/2017 Rae Campo PA-C - 04/29/2017 4:26 [...] Plans: Nondisplaced insufficiency type sacral fractures - [facility] consult, patient of Dr Mcclure and his injury was described to him -no surgery inidcated - IV dilaudid. He also does ok with oral oxycodone and Alpine - taper off IV opioids and optimize [...] Lumbar Spine Without Contrast Result Date: 04/29/2017 [facility] MR LUMBAR SPINE WO CONTRAST 04/28/2017 [...] right neural foraminal stenosis. Dilshad John MD [facility] Hospitalist Jeanette Santana, [facility] - 04/28/2017 8:59 AM CDT Pharmacy Note - Admission Medication History Pertinent Provider Information: n/a Prior To Admission (FILING MACHINE OPERATOR) med list completed and updated in EMR. FILING MACHINE OPERATOR Med List Medication Sig Note Last [...] day. 04/27/2017 at just started 04/27 ??? multivitamin,qg-flhl-yqqixjtc (COMPLETE MULTIVITAMIN) Tab Take 1 tablet by mouth daily. Past Week at Unknown time ??? pramipexole (MIRAPEX) 0.5 MG tablet Take 0.5 mg by mouth at bedtime. 04/26/2017 ??? terazosin (HYTRIN) 5 MG capsule Take 5 mg by mouth at bedtime. 04/26/2017 ??? [DISCONTINUED] acetaminophen (TYLENOL ARTHRITIS PAIN) 650 MG CR tablet Take by mouth. 04/28/2017:[facility] Received Sig: Takes 1 tablet as needed. ??? [DISCONTINUED] atorvastatin (LIPITOR) 40 MG tablet Take 40 mg by mouth. 04/28/2017: Received from: [facility] Received Sig: Take 1 tablet by mouth once daily. ??? [DISCONTINUED] desonide (DESOWEN) 0.05 % lotion Apply topically. 04/28/2017: Received from: [facility] Received Sig: Apply topically to affected area(s) 2 timesdaily. ??? [DISCONTINUED] diclofenac (VOLTAREN) 75 MG EC tablet Take 75 mg by mouth. 04/28/2017: Received from: [facility] Received Sig: Take 1 tablet by mouth 2 times daily with meals. ??? [DISCONTINUED] diflorasone (PSORCON) 0.05 % ointment Apply topically. 04/28/2017: Received from: [facility] Received Sig: Apply topically to affected area(s) once daily. ??? [DISCONTINUED] gabapentin (NEURONTIN) 300 MG capsule Start 1 pill QHS, increase up to TID prn 04/28/2017: Received from: [facility] ??? [DISCONTINUED] HYDROcodone-acetaminophen (NORCO) 7.5-325 mg per tablet Take 1 tablet by mouth. 04/28/2017: Received from: [facility] Received Sig: Take 1 tabletby mouth every 4 hours if needed for Pain May take 1.5 every 4 hours for severe pain ??? [DISCONTINUED] metoprolol tartrate (LOPRESSOR) 50 MG tablet Take 50 mg by mouth. 04/28/2017: Received from: [facility] Received Sig: Take 1 tablet by mouth 2 times daily. ??? [DISCONTINUED] miSOPROStol (CYTOTEC) 200 MCG tablet Take 200 mcg by mouth. 04/28/2017: Received from: [facility] Received Sig: Take 1 tablet by mouth 2 times daily with meals. ??? [DISCONTINUED] morphine (MS CONTIN) 15 MG 12 hr tablet Take 15 mg by mouth. 04/28/2017: Received from: [facility] Received Sig: Take 1 tablet by mouth 2 times daily ??? [DISCONTINUED] multivitamin (ONE A DAY) per tablet Take by mouth. 04/28/2017: Received from: [facility] Received Sig: take 1 tablet by oral route once daily with food ??? [DISCONTINUED] pramipexole (MIRAPEX) 0.5 MG tablet Take 0.5 mg by mouth. 04/28/2017: [facility] Received Sig: Take 1 tablet by mouth at bedtime. ??? [DISCONTINUED] terazosin (HYTRIN) 5 MG capsule Take 5 mg by mouth. 04/28/2017: [facility] Received Sig: Take 1 capsule by mouth at bedtime. Information source(s): Patient Summary of Changes to FILING MACHINE OPERATOR Med List New: dulcolax, calcium +d Discontinued: none Changed: diclofenac to qday; misoprostol to qday; mirapex to qhs; Patient was asked about OTC/herbal products specifically. FILING MACHINE OPERATOR med list reflects this. Based on the pharmacist???s assessment, the FILING MACHINE OPERATOR med list information appears reliable Patient appears compliant: Yes Allergies were reviewed, assessed, and updated with the patient. Medications currently not available for use during hospital stay. Family/Patient business development representative states they will bring topicals to [facility]. Thank you for the opportunity to [...] point he can't function at home. - [facility] consult, patient of Dr Mcclure - YEVGENIY dilaudid. He also does ok with oral oxycodone and Alpine - NPO, IVMF -Also has ordered for [...] care. Talked to patient. Dilshad John MD [facility] Hospitalist documented in this encounter H&P Notes Mili Monet MD - 04/28/2017 2:30 AM CDT Admission History and Physical Speedy HendricksSHREYA 1940, [facility] Acute low back pain due to trauma [M54.5] PCP: Kannan Nieto MD, Code status: Full Code Extended Emergency Contact Information Primary Emergency Contact: Sania Hendricks [address]: [address] [place] [address] Mobile Relation: Spouse Secondary Emergency Contact: Chastity Hendricks [facility] Mobile Relation: Child Date of Service: 04/28/2017 [...] point he can't function at home. - [facility] consult, patient of Dr Mcclure - IV dilaudid. He also does ok with oral oxycodone and Alpine - NPO, IVMF - Consider steroid but [...] not show any fracture. He was prescribed Alpine. The pain did not improve. Patient saw [...] L3-4 ; Surgeon: Hang Mcclure MD; Location: [facility]; Service: ??? TONSILLECTOMY Allergies Reviewed by myself [...] mouth 2 (two) times a day. ??? multivitamin,ql-tfky-bgqpkabl (COMPLETE MULTIVITAMIN) Tab Take by mouth. ??? [...] Social History Narrative He severed in the [place]. 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 Family History Reviewed by myself with [...] COMPATIBLE Unit Type O Pos Unit Number [id number] Status Released Component Red Blood Cells PRODUCT CODE [id number] Crossmatch Result Value Ref Range Crossmatch COMPATIBLE Unit Type O Pos Unit Number [id number] Status Released Component Red Blood Cells PRODUCT CODE [id number] Creatinine Result Value Ref Range Creatinine 1.34 (H) 0.70 - 1.30 mg/dL GFR MDRD Af Amer >60 >60 mL/min/1.73m2 GFR MDRD Non Af Amer 52 (L) >60 mL/min/1.73m2 Antibody Identification Result Value Ref Range Antibody ID > 3hr for more blood;Anti-[place] No new imaging obtained EKG: Normal sinus rhythm rate 62 bpm. No previous tracing for comparison Pertinent Labs/EKG/XRAY Reviewed Social History, Family History, PMH, PSH, Medications and Allergies reviewed. Total time: 70 minutes with >50% time spent with coordination of care and counseling reviewing plan of care with patient and family 04/28/2017 Mili Monet MD [facility] Medicine Service documented in this encounter Consult Notes Rae Campo PA-C - 04/28/2017 12:49 PM CDT ORTHOPEDIC CONSULTATION Consultation Speedy HendricksSHREYA 1940, [facility] Acute low back pain due to trauma [M54.5] PCP: aKnnan Nieto MD, Code status: Full Code Extended Emergency Contact Information Primary Emergency Contact: Sania Hendricks Address: [address] [place], [place] [id number] [facility] Mobile Relation: Spouse Secondary Emergency Contact: Chastity Hendricks [facility] Mobile Relation: Child CHIEF COMPLAINT: Acute low [...] scan ordered which he had done at [facility]. He was scheduled to see Dr. [...] day. 04/27/2017 at just started 04/27 ??? multivitamin,ll-beiv-syqffwqb (COMPLETE MULTIVITAMIN) Tab Take 1 tablet by [...] Mcclure and Dr. Burger, on-call surgeon for [facility] and they are in agreement with [...] follow this patient. Thank you for including [facility] in the care of Speedy Hendricks. [...] behalf by Jhon Park, a trained medical billing associate. The creation of this record is based [...] L3-4 ; Surgeon: Hang Mcclure MD; Location: [facility] Main OR; Service: ??? TONSILLECTOMY Past [...] l stenosis. Narrative 04/29/2017 9:20 AM CDT [facility] MR LUMBAR SPINE WO CONTRAST 04/28/2017 [...] note might be different from the original. [facility] MR LUMBAR SPINE WO CONTRAST 04/28/2017 [...] 12-lead, tracing only (04/28/2017 2:05 AM CDT) [facility] Method Time Signature Systolic Blood 184 mmHg 04/28/2017 [facility] Pressure 8:51 AM CDT CONVERSION Diastolic Blood 98 mmHg 04/28/2017 [facility] Pressure 8:51 AM CDT CONVERSION Ventricular Rate 60 BPM 04/28/2017 [facility] 8:51 AM CDT CONVERSION Atrial Rate 60 BPM 04/28/2017 [facility] 8:51 AM CDT CONVERSION DE Interval 160 ms 04/28/2017 [facility] 8:51 AM CDT CONVERSION QRS Duration 88 ms 04/28/2017 [facility] 8:51 AM CDT CONVERSION QT 432 ms 04/28/2017 [facility] 8:51 AM CDT CONVERSION QTc 432 ms 04/28/2017 [facility] 8:51 AM CDT CONVERSION P Backus 16 degrees 04/28/2017 [facility] 8:51 AM CDT CONVERSION R AXIS 16 degrees 04/28/2017 [facility] 8:51 AM CDT CONVERSION T Backus 19 degrees 04/28/2017 [facility] 8:51 AM CDT CONVERSION Interpretation Normal sinus rhythm 04/28/2017 [facility] ECG Normal ECG 8:51 AM CDT CONVERSION No previous ECGs available Confirmed by VEL ??SUKHJINDER WELSH LOC:JN ([id number]) on 04/28/2017 8:5 1:37 AM Specimen Anatomical [...] Lumbago documented in this encounter Care Teams Computer Hardware Developer Relationship Specialty Start Date End Date Primary Dipak Kasper MD PCP - General 09/21/1204/18 documented as of this encounter
--- OUTSIDE RECORDS SUMMARY | 2022-06-20 08:54 | XMS_ITS | Encounter Summary ---
:1940 Author Organization [facility] Address [address] [place] [address] Care Team Providers Name Role Phone Primary Dr, Unknown MD Primary Care Provider Unavailable Reason for Visit Reason Comments Dressing Change Encounter Details Date Type Department Care Team Description 11/18/2016 Allied Health/Nurse [facility] Dressing Change Visit [place] [phone] Social History Tobacco Use Types Packs/Day [...] healed. IN CASE OF EMERGENCY: Dr White [phone] If you were seen in [place] call: [phone] If you were seen in [place] call: [phone] NESS SERVICES ASSISTANT documented in this encounter Progress Notes Lillian [...] needed. Patient verbalized understanding. .Marva Aj CMA NESS SERVICES ASSISTANT documented in this encounter Plan of Treatment Not on filedocumented as of this encounter Visit Diagnoses Diagnosis Encounter for change or removal of surgi hannah wound dressing - Primary documented in this encounter Care Teams County Health Officer Relationship Specialty Start Date End Date Primary Dipak Kasper, PCP - General 09/21/1204/18 documented as of this encounter
--- OUTSIDE RECORDS SUMMARY | 2022-06-20 08:55 | XMS_ITS | Encounter Summary ---
:1940 Author Organization [facility] Address [address] [place] [address]. [place] [address] Care Team Providers Name Role Phone Primary Dr, Unknown MD Primary Care Provider Unavailable Encounter Details Date Type Department Care Team Description 09/30/2012 Anesthesia Event [facility] Viraj Silva PeriOp Letty Tejeda MD [address] [place] [address] ANESTH [place] [address] [place], [place] [address] (Wo rk) Anesthesia Record [...] Type Details Placement Removal Peripheral IV 09/30/12; (SVP RESEARCH & EBUSINESS OPERATIONS); 20 09/30/12 0000 by 09/30/12 14 45 by G; Left; Hand Ron Velasquez Heather Ann, JSOE Manjarrez RN Incision/Surgical Site 09/30/12; 1224; 09/30/12 [...] 97.00%. Additional Comments: Doing Well. Euvolemic. AKollitzMD SSIONS REPRESENTATIVE Anesthesia Preprocedure Evaluation - Damian Silva MD [...] benefits and alternatives discussed with: patient or representative government relations. Possibility of blood products discussed. History & Physical Review History and physical reviewed; no interval change. . SSIONS REPRESENTATIVE documented in this encounter Miscellaneous Notes Anesthesia Care Transfer Note - Lety Guzman APRN CRNA - 09/30/2012 12:47 PM CST Anesthesia Care Transfer Note Patient: Speedy Hendricks Transferred to: Phase II Patient vital signs: stable Airway: none To phase 2. criteria met. SSIONS REPRESENTATIVE documented in this encounter Plan of Treatment Not on filedocumented as of this encounter Visit Diagnoses Not on filedocumented in this encounter Administered Medications Inactive Administered Medications - up to 3 most recent administrations Medication Order MAR Action Action Date Dose Rate Site clindamycin (CLEOCIN) IVPB 900 mg Given 09/30/2012 11:52 AM ADMISSIONS REPRESENTATIVE 900 mg Routine, 900 mg, Intravenous, EVERY 6 HOURS PRN, Starting on Yesenia 09/30/12 at 1034, Intra-Op Dose. Give every 6 hours while patient in surgery, starting 6 hours after pre-op dose. DO NOT GIVE intra-op dose if CrCl < 10 mL/min (on dialysis). If CrCL < 50 mL/min, double the time interval between doses., Pre-procedure fentaNYL (SUBLIMAZE) injection Given 09/30/2012 12:15 PM ADMISSIONS REPRESENTATIVE 50 mcg PRN, moderate to severe pain, Starting on Yesenia 09/30/12 at 1215, Anesthesia Intra-op lactated ringers infusion New Bag 09/30/2012 11:39 AM ADMISSIONS REPRESENTATIVE mL Intravenous, CONTINUOUS PRN, Anesthesia Intra-op, Starting on Yesenia 09/30/12 at 1139, Until Yesenia 09/30/12 at 1248 midazolam (VERSED) injection Given 09/30/2012 11:54 AM ADMISSIONS REPRESENTATIVE 2 mg PRN, anxiety, Starting on Yesenia 09/30/12 at 1145, Anesthesia Intra-op Given 09/30/2012 11:45 AM ADMISSIONS REPRESENTATIVE 2 mg propofol (DIPRIVAN) Rate/Dose 09/30/2012 12:11 20 mcg/kg/min 11.2 mL /hr injection Change PM ADMISSIONS REPRESENTATIVE CONTINUOUS PRN, Starting on Yesenia 09/30/12 at 1202, Anesthesia Intra-op Rate/Dose Change 09/30/2012 12:04 PM ADMISSIONS REPRESENTATIVE 10 mcg/kg/min 5.6 mL/hr New Bag 09/30/2012 12:02 PM ADMISSIONS REPRESENTATIVE 55 mcg/kg/min 30.7 mL/hr documented in this encounter Care Teams Batch Attendant Relationship Specialty Start Date End Date Primary Dipak Kasper, PCP - General 09/21/1204/18 documented as of this encounter
--- OUTSIDE RECORDS SUMMARY | 2022-06-20 08:55 | XMS_ITS | Encounter Summary ---
:1940 Author Organization [facility] Address [address] [place] [address] Care Team Providers Name Role Phone Primary Dr, Unknown MD Primary Care Provider Unavailable Reason for Visit Reason Comments Surgical Followup bilateral post op Encounter Details Date Type Department Care Team Description 10/22/2012 Office Visit [facility] Sal Chaparro re following Yariel Castellanos DPJami surgery of the [address] [place] [address] musculoskeletal system, [place] [address] E NEC (Primary Dx) [phone] [address] [place], [place] [address] Social History Tobacco Use Types [...] 93 kg (205 lb) 10/22/2012 9:14 AM JOINT FINISHER Height 170.2 cm (5' 7) 10/22/2012 9:14 AM JOINT FINISHER Body Mass Index 32.11 10/22/2012 9:14 AM JOINT FINISHER documented in this encounter Progress Notes Sal [...] questions or concerns and follow-up in prn. T FINISHER documented in this encounter Nursing Notes 10/22/2012 9:00 AM CST >> MELL MAGANA Fri Oct 22, 2012 9:14 AM Patient presents with: Surgical Followup - bilateral post op Mell Magana CMA documented in this encounter Plan of Treatment Not on filedocumented as of this encounter Visit Diagnoses Diagnosis Aftercare following surgery of the [facility] [place] loskeletal system, NEC - Primary documented in this encounter Care Teams Sap Business Objects Developer Relationship Specialty Start Date End Date Primary Dipak Kasper MD PCP - General 09/21/1204/18 documented as of this encounter
--- OUTSIDE RECORDS SUMMARY | 2022-06-20 08:55 | XMS_ITS | Encounter Summary ---
:1940 Author Organization [facility] Address [address] [place] [address] Care Team Providers Name Role Phone Primary DrDipak MD Primary Care Provider Unavailable Celina Coley Primary Care Provider [facility] Rose Primary Care Provider [phone] Jon White MD Unavailable [phone] Ramiro Loco MD Unavailable Encounter Details Date Type Department Care Team Description 05/03/2014 Surgery - [facility] Hang Mcclure, [facility] OR [facility] [address] [place] [address] 17 [facility] [address] [address] [place] [address] [phone] (Wo rk) Social History Tobacco Use Types [...] documented as of this encounter Care Teams Hplc Chemist Relationship Specialty Start Date End Date Primary Dipak Kasper MD PCP - General 09/21/1204/18 Celina Coley PCP - General Family Practice 05/05/17 05/11/[address] [address] [facility] PCP - General 05/12/[address] [address] Jon White Assigned Surgical Provider 08/10/20 12/08/20 MD Aubrey [address] [place] [address] Ramiro Loco MD Assigned Heart and 08/10/20 05/11/21 [address] Vascular Provider [place] [address] documented as of this encounter
--- OUTSIDE RECORDS SUMMARY | 2022-06-20 08:55 | XMS_ITS | Encounter Summary ---
:1940 Author Organization [facility] Address [address] [place] [address] Care Team Providers Name Role Phone Primary DrDipak MD Primary Care Provider Unavailable Celina Coley Primary Care Provider [facility] [place] Primary Care Provider [phone] Jon White MD Unavailable [phone] Ramiro Loco MD Unavailable Encounter Details Date Type Department Care Team Description 11/29/2014 [facility]ammal [facility] [address] [place] [phone] [place], [place] [phone] [address] Social History Tobacco Use Types Packs/Day Years [...] Hydration: adequate Anesthetic complications: no Additional Notes: TRAFFIC CONTROL SPECIALIST Anesthesia Preprocedure Evaluation - Néstor Stack - 11/29/2014 10:00 AM CST Anesthesia Evaluation Patient summary reviewed No history of anesthetic complications Airway Mallampati: II Neck ROM: full Pulmonary - negative ROS and normal exam Cardiovascular (+) hypertension well controlled, (-) past DC, CAD, CABG/stent, dysrhythmias ECG reviewed Rhythm: regular Rate: normal Neuro/Psych - negative ROS Endo/Other (+) diabetes mellitus type 2 well controlled, obesity, GI/Hepatic/Renal - negative ROS Dental - normal exam Anesthesia Plan Planned anesthetic: general endotracheal Decadron (8 mg), Zofran. ASA 2 Induction: intravenous Anesthetic plan and risks discussed with: patient Post-op plan: routine recovery TRAFFIC CONTROL SPECIALIST documented in this encounter Miscellaneous Notes Anesthesia [...] as of this encounter Care Teams Video Game Script Writer Relationship Specialty Start Date End Date Primary Dipak Kasper MD PCP - General 09/21/1204/18 Celina Coley PCP - General Family Practice 05/05/17 05/11/[address] [address] [facility] PCP - General 05/12/[address] [id number] Jon White Assigned Surgical Provider 08/10/20 12/08/20 MD Aubrey [address] [place], [place] [phone] Ramiro Loco MD Assigned Heart and 08/10/20 05/11/21 [address] Vascular Provider [place] [address] documented as of this encounter
--- OUTSIDE RECORDS SUMMARY | 2022-06-20 08:55 | XMS_ITS | Encounter Summary ---
:1940 Author Organization [place] Address [facility] [place] [address] Care Team Providers Name Role Phone Unavailable Primary Care Provider Unavailable Reason for Visit Reason Comments Surgical Followup 02/06 left foot post op and r ight great toe post op. Encounter Details Date Type Department Care Team Description 04/02/2011 Office Visit [facility] Sal Chaparro aftercare Clinic Yumiko Castellanos DPM (Primary Dx) [address] [place] [phone] [place], [place] [id number] Social History Tobacco Use Types Packs/Day Years [...]
--- OUTSIDE RECORDS SUMMARY | 2022-06-20 08:55 | XMS_ITS | Encounter Summary ---
:1940 Author Organization [place] Address [facility] [place] [address] Care Team Providers Name Role Phone Unavailable Primary Care Provider Unavailable Reason for Visit Reason Comments Surgical Followup 02/06 left foot surgery. [address]o [address] metatarsal fracture nonunion, left foot Encounter Details Date Type Department Care Team Description 04/30/2011 Office Visit [facility] Sal Chaparro aftercare Clinic Yumiko Castellanos DPM (Primary Dx) [address] [place] [phone] [place], [place] [id number] Social History Tobacco Use Types Packs/Day Years [...]
--- OUTSIDE RECORDS SUMMARY | 2022-06-20 08:55 | XMS_ITS | Encounter Summary ---
:1940 Author Organization [facility] Address [address] [place] [address] Care Team Providers Name Role Phone Primary Dr, Unknown Primary Care Provider Unavailable Reason for Visit Reason Onset Date Comments Referral 10/16/2016 [facility] Encounter Details Date Type Department Care Team Description 10/16/2016 Telephone [facility] Jon White Referral ([facility]) [facility] [address] [place] [phone] [place], [place] [phone] (Wo rk) Social History Tobacco Use Types [...] get Valium before procedure and will have construction driver with him. MOHS at 10 45 am. STER Telephone Encounter - Aruna Rodriguez - 10/16/2016 3:11 PM CST Pt returned RN (Lisa) phone call. Please call again Thursday10/17/16. 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 Pt has appt at 10 45 pm on for second opinion on skin cancer and questions. Left message for pt to clarify whether heis planning to come in for MOHS appt or just regular appt. STER documented in this encounter Plan of Treatment Not on filedocumented as of this encounter Visit Diagnoses Not on filedocumented in this encounter Care Teams Paper Machine Supervisor Relationship Specialty Start Date End Date Primary Dipak Kasper MD PCP - General 09/21/1204/18 documented as of this encounter
--- OUTSIDE RECORDS SUMMARY | 2022-06-20 08:55 | XMS_ITS | Encounter Summary ---
:1940 Author Organization [place] Address [address] [place] [address] Care Team Providers Name Role Phone Primary DrDipak MD Primary Care Provider Unavailable Celina Coley Primary Care Provider [facility] [place] Primary Care Provider [phone] Jon White MD Unavailable [phone] Ramiro Loco MD Unavailable Encounter Details Date Type Department Care Team Description 11/29/2014 Surgery - [facility] Hang Mcclure, [facility] OR [facility] [address] [place] [address] [address] [id number] [place] [address] [phone] (Wo rk) Social History Tobacco Use Types [...] 90.7 kg (200 lb) 11/29/2014 9:33 AM COMPUTER ARTIST Height 180.3 cm (5' 11) 11/29/2014 9:33 AM COMPUTER ARTIST Body Mass Index 27.89 11/29/2014 9:33 AM COMPUTER ARTIST documented in this encounter Plan of Treatment Not on filedocumented as of this encounter Visit Diagnoses Not on filedocumented in this encounter Additional Health Concerns Infection Onset Date Last Indicated Resolved Time MRSAComment: Positive 02/17/11 and 09/22/12 11/05/2018 019 Negatives 05/03/14 (HE), 12/01/14 (HE) documented as of this encounter Care Teams Scientific Laboratory Supervisor Relationship Specialty Start Date End Date Primary Dipak Kasper MD PCP - General 09/21/1204/18 Celina Coley PCP - General Family Practice 05/05/17 05/11/[address] [address] [facility] - General 05/12/[address] [address] Jon White Assigned Surgical Provider 08/10/20 12/08/20 MD Aub[address] [place] [address] Ramiro Loco MD Assigned Heart and 08/10/20 05/11/21 [address] [place] [address] Vascular Provider [place] [address] documented as of this encounter
--- OUTSIDE RECORDS SUMMARY | 2022-06-20 08:55 | XMS_ITS | Encounter Summary ---
:1940 Author Organization [place] Address [address] [place] [address] Care Team Providers Name Role Phone Primary Dr, Unknown MD Primary Care Provider Unavailable Reason for Visit Auth/Cert - Closed Specialty Diagnoses / Procedures Referred By Contact Refer red To Contact Surgery Diagnoses painful internal fixation left foot Rh Periop Services Procedures REMOVE HARDWARE FOOT [address] [place], [place] [address] Fax: Referral ID Status Reason Start Date Expiration Date Visits Requ ested Visits Authorized [id number] Closed 1 1 Encounter Details Date Type Department Care Team Description 09/30/2012 Hospital Encounter [facility] Alvin Trujillo following Andres Castellanos DPM surgery of the PreOP/PostOP [address] [facility], [address] [facility] NEC (Primary Dx) [facility] [place] [address] [phone] Social History Tobacco Use Types Packs/Day Years [...] Comments Blood Pressure 130/79 09/30/2012 2:45 PM SOURCING ANALYST Pulse - - Temperature 36.2 ??C (97.2 ??F) 09/30/2012 2:45 PM SOURCING ANALYST Respiratory Rate 16 09/30/2012 2:45 PM SOURCING ANALYST Oxygen Saturation 98% 09/30/2012 2:45 PM SOURCING ANALYST Inhaled Oxygen Concentration - - Weight 93 kg (205 lb) 09/30/2012 10:24 AM SOURCING ANALYST Height 170.2 cm (5' 7) 09/30/2012 10:24 AM SOURCING ANALYST Body Mass Index 32.11 09/30/2012 10:24 AM SOURCING ANALYST documented in this encounter Discharge Instructions Discharge [...] DR. SAL TRUJILLO M.D. CLINIC PHONE NUMBER: [phone]. CING ANALYST documented in this encounter Medications at Time [...] Trujillo DPM - 09/23/2012 4:09 PM CST CING ANALYST documented in this encounter Nursing Notes Iwona Ruiz RN - 09/30/2012 12:33 PM CST First Panel started at 1210 and ended at 1230. Second panel started at 1230 and ended at 1237. Jen Ruiz RN CING ANALYST Iwona Ruiz RN - 09/30/2012 12:22 PM CST Patient did not want his hardware that was removed from procedure on 09/30/[address] Trujillo. Jen Ruiz RN CING ANALYST documented in this encounter OR Notes OR Anesthesia - Sal Trujillo DPM - 10/01/2012 9:43 AM CST CING ANALYST documented in this encounter Miscellaneous Notes Op [...] DPM MT: [id number] Name: ELDA HENDRICKS Account: [id number] : 1940 Procedure Date: 09/30/2012 Document: [id number] cc: Ramiro Walker MD CING ANALYST Brief Op Note - Sal Trujillo DPM - 09/30/2012 1:01 PM CST [facility] Podiatry/Foot and Ankle Surgery Brief Operative Note Pre-operative diagnosis: Painful Internal Fixation left foot Painful recurrence of toenail right great toe Post-operative diagnosis same Procedure: Procedure(s): Hardware Removal left foot - Deep Surgical matrixectomy right great toe Surgeon: SAL TRUJILLO DPM Assistants(s): Anesthesia: MAC Estimated blood loss: 5 cc CING ANALYST documented in this encounter Plan of Treatment Not on filedocumented as of this encounter Procedures Procedure Name Priority Date/Time Associated Diagnosis Comme nts XR FOOT PORT LEFT 3 Routine 09/30/2012 1:44 PM Re sults for this VIEWS SOURCING ANALYST procedure are i n the results section. EXCISION, TOENAIL 09/30/2012 11:41 AM painful internal SOURCING ANALYST fixation left foot Special Needs 5# Hx MRSA REMOVAL, HARDWARE, FOOT 09/30/2012 11:41 AM SOURCING ANALYST painfu l internal fixation left foot Special Needs # Hx MRSA EKG 12-LEAD, TRACING ONLY Routine 09/30/2012 11:38 AM SOURCING ANALYST Results for this procedure are in the resu lts section. HIM ECG SCAN Routine 09/30/2012 documented in this encounter Results X-ray LEFT Foot 3 vw port (09/30/2012 1:44 PM SOURCING ANALYST) Anatomical Region Laterality Modality Left Foot Left Other Specimen (Source) Anatomical Collection Method Collection Time Re ceived Time Location / / Volume Laterality 09/30/2012 1:44 PM SOURCING ANALYST Impressions 10/01/2012 10:47 AM SOURCING ANALYST IMPRESSION: Postoperative and degenerative change. No acute abnormality. ODILON RANDOLPH MD Narrative 10/01/2012 10:47 AM SOURCING ANALYST LEFT FOOT THREE OR MORE VIEWS PORTABLE [...] EKG 12-lead, tracing only (09/30/2012 11:38 AM SOURCING ANALYST) Component Value Ref Range Test Analysis Performed Pathologis t Method Time At Signature Ventricular Rate 64 BPM RADIOLOGY RESULTS Atrial Rate 64 BPM RADIOLOGY RESULTS VA Interval 154 ms RADIOLOGY RESULTS QRS Duration 80 ms RADIOLOGY RESULTS QT 410 ms RADIOLOGY RESULTS QTc 422 ms RADIOLOGY RESULTS P Chandler -1 degrees RADIOLOGY RESULTS R AXIS -9 degrees RADIOLOGY RESULTS T Chandler -7 degrees RADIOLOGY RESULTS Interpretation Sinus rhythm [...] / / Volume Laterality 09/30/2012 11:38 AM SOURCING ANALYST Doctor Unknown MD ECG ORDERABLES Performing Organization Address City/State/ZIP Code Phon e Number RADIOLOGY RESULTS ECG - HIM ECG Scan (09/30/2012) Narrative This result has an attachment that is no t available. Sal Trujillo DPJami ECG ORDERABLES documented in this encounter Visit Diagnoses Diagnosis Aftercare following surgery of the [facility], NEC - Primary documented in this encounter Administered Medications Inactive Administered Medications - up to 3 most recent administrations Medication Order MAR Action Action Date Dose Rate Site fentaNYL (SUBLIMAZE) injection Given 09/30/2012 2:16 PM SOURCING ANALYST 50 m cg 25-50 mcg 25-50 mcg, Intravenous, EVERY 2 MIN PRN, other, acute pain, Starting on Yesenia 09/30/12 at 1251, MAX cumulative dose = 250 mcg. Use Fentanyl initially, as a short acting agent for acute pain control. If insufficient, or a longer acting agent is needed, begin Morphine or Hydromorphone if ordered., PACU Given 09/30/2012 1:33 PM SOURCING ANALYST 50 mcg HYDROcodone-acetaminophen 5-325 MG per Given 09/30/2012 2:16 PM SOURCING ANALYST 1 tablet tablet 1-2 tablet 1-2 tablet, Oral, ONCE, On Yesenia 09/30/12 at 1330, For 1 dose, One time prior to discharge., Post-procedure lactated ringers infusion New Bag 09/30/2012 1:33 PM SOURCING ANALYST 1,000 mLs 100 mL/hr at 100 mL/hr, Intravenous, CONTINUOUS, Continue until IV catheter is weaned, PACU, Starting on Yesenia 09/30/12 at 1300, Until Yesenia 09/30/12 at 1723 documented in this encounter Active and Recently Administered Medications Times are shown in SOURCING ANALYST. Scheduled Medication Order 09/28/2012 09/29/2012 09/30/2012 HYDROcodone-acetaminophen [...] 1152 (Given - Provider: Lety Guzman, TERESITA MANAGING ATTORNEY) 900 mg, Intravenous, for 60 Minutes, EMIL [...] Intra-procedure documented in this encounter Care Teams Roadside Mechanic Relationship Specialty Start Date End Date Primary Dipak Kasper MD PCP - General 09/21/1204/18 documented as of this encounter
--- OUTSIDE RECORDS SUMMARY | 2022-06-20 08:55 | XMS_ITS | Encounter Summary ---
:1940 Author Organization [place] Address [address] [place] [address] Care Team Providers Name Role Phone Primary DrDipak MD Primary Care Provider Unavailable Celina Coley Primary Care Provider [facility] [place] Primary Care Provider [phone] Jon White MD Unavailable [phone] Ramiro Loco MD Unavailable Gallito Gonzalez MD Unavailable Encounter Details Date Type Department Care Team Description 05/02/2014 Records - [facility] Cheryl Enriquez RN [address] [address] Social History Tobacco Use Types [...] weeks for routine followup. Isra Fregoso M.D. [facility] Mattie Urrutia - 05/04/2014 3:42 PM [...] - 05/07/2014 12:18 PM CDT Confirmed with [facility] acceptance of pt for PT and OT. Notified pt of [facility] PT and OT acceptance and informed pt and daughter agency will be contacting pt on Thursday, 05/08, to schedule appointment. MARIELA Dillon, [facility] Clinical Social Work Coroner Transport Technician Luciano León - 05/07/2014 11:25 AM CDT [facility] Daily Progress Note Assessment/Plan: 1. Hypertension. Continue [...] minutes grilling 50% coordination of care. Isra Fregoos MD - 05/07/2014 10:42 AM CDT ORTHOPEDIC [...] resolved, no tenderness or swelling. Isra Fregoso [facility] Date: 05/07/2014 Time: 10:42 AM Historical Provider - 05/06/2014 1:16 PM CDT [facility] met with pt re home health care services. Pt requested [facility] for PT and OT. [facility] contacted [facility] at [phone] making referral to this agency. Fax no is [phone]. [facility] will follow pt to discharge. Rita Urbina, NEWS ANCHOR, [facility] Clinical Social Work Care Managedr Low Ramirez - 05/06/2014 12:12 PM CDT FIELD STAFF TREATMENT NOTE Name: Speedy Hendricks : 1940 Acupuncture Treatment Patient Type: Orthopedic Intervention Reason: Pain Pre-session Pain ratin Post-session Pain ratin Patient complaint:: (R) foot pain Acupunture (Points):: Du 20, Yin watts, (R) Gb 20, (R) St 34, 36, (R) Sp 8, (R) Si 4 Low Ramirez L.Ac. Date: 05/06/2014 Time: 12:12 PM Luciano León - 05/06/2014 11:44 AM CDT [facility] Daily Progress Note Assessment/Plan: 1. Hypertension. Continue [...] to weight bear, equivocal SLR. Isra Fregoso [facility] Date: 05/06/2014 Time: 11:15 AM Lexie [...] Thank you for the consult. Eri Bah [facility] 05/05/2014 4:46 PM Ca Plunkett - 05/05/2014 3:50 PM CDT FIELD STAFF TREATMENT NOTE Name: Speedy Hendricks : 1940 [...] León S - 05/04/2014 2:20 PM CDT [facility] Daily Progress Note Assessment/Plan: 1. Hypertension. Continue [...] Care Management should needs arise. Cedric Borrego, NEWS ANCHOR, LOCKSTITCHER Lety Dickerson RN - 05/04/2014 12:00 PM [...] Luciano León - 05/03/2014 12:31 PM CDT [facility] Daily Progress Note Assessment/Plan: 1. Hypertension. Continue [...] swab prior to antibiotic . Per J. Woodson/ClFern RN documented in this encounter H&P Notes [...] Revision L4 laminotomy. SURGEON: Dr. Tin Mcclure. CHILDREN'S NURSERY ASSISTANT: Mahesh Rodgers PA-C, who was needed for [...] was seen in the preop area of [facility] today, 05/03/2014. The low back was marked [...] the next 6 weeks. HANG MCCLURE MD [facility] D 05/03/2014 09:21:55 T 05/03/2014 12:31:48 R 05/03/2014 12:31:48 [id number] cc:LUCIANO GUERRA MD documented in this encounter [...] Right leg veins are negative for DVT. Lucaino León MD [facility] ORDERABLES XR Foot Port Right 3 [...] evidence for acute fracture. Luciano León MD [facility] ORDER [place] XR Ankle Port [...] changes in cervical spine. Misha Weaver MD [facility] ORDER [place] XR Lumbar Spine [...] level of L4 pedicle. Hang Mcclure MD [facility] ORDER [place] XR Surgery CHRIS [...] documented as of this encounter Care Teams Paint Grinder Relationship Specialty Start Date End Date Primary DrDipak MD PCP - General 09/21/1204/18 Celina Coley PCP - General Family Practice 05/05/17 05/11/[address] [address] Kehinde Portillo PCP - General 05/12/[address] [address] Jon White Assigned Surgical Provider 08/10/20 12/08/20 MD Aubrey [address] [place] [address] Ramiro Loco MD Assigned Heart and 08/10/20 05/11/21 [address] Vascular Provider [place] [address] Gallito Gonzalez, Assigned Heart and 09/29/21 MD Vascular Provider [address] [place] [address] documented as of this encounter
--- OUTSIDE RECORDS SUMMARY | 2022-06-20 08:55 | XMS_ITS | Encounter Summary ---
:1940 Author Organization [place] Address [address] [place] [address] Care Team Providers Name Role Phone Unavailable Primary Care Provider Unavailable Reason for Visit Reason Comments Surgical Followup 02/06/11 post op left foot wi th hardware. pt is having pain. Encounter Details Date Type Department Care Team Description 07/30/[address] [facility] Sal Chaparro pa in (Primary Dx); Yariel Castellanos DPM Enthesopathy of unspecified site [address] [place] [address] E [phone] [address] [place], [place] [address] Social History Tobacco Use Types [...] Procedure Time: 30 min Anesthesia: MAC Location: [facility] Pre-Operative Medications: Clindamycin 900 mg IV pre-op Special Instrumentation: Synthes mini locking plate screw front load trash truck driver documented in this encounter Nursing Notes [...]
--- OUTSIDE RECORDS SUMMARY | 2022-06-20 08:55 | XMS_ITS | Encounter Summary ---
:1940 Author Organization [facility] Address [address] [place] [address] Care Team Providers Name Role Phone Primary Dr, Unknown MD Primary Care Provider Unavailable Reason for Visit Reason Onset Date Comments Appointment 10/30/2016 Encounter Details Date Type Department Care Team Description 10/30/2016 Telephone [facility] Jon White, Appointment Madisonjuly Coppola MD [address] [place] [phone] [place] [address] (Wo rk) Social History Tobacco [...] before procedure. Pt's daughter will accompany him. R ENGINEER Telephone Encounter - Lisa Diaz RN - 10/30/2016 2:33 PM CST Left detailed message for pt' daughter explaining patient can have MOHS done next week in order to save himself an extra trip or they can just come in and have consult 1st. R ENGINEER Telephone Encounter - Aruna Rodriguez - 10/30/2016 8:14 AM CST Patient's daughter would like clarification as to whether Mr. Hendricks is having Mohs surgery rather than consult only - as it's scheduled @ 10:45. Please advise Raquel. R ENGINEER documented in this encounter Plan of Treatment Not on filedocumented as of this encounter Visit Diagnoses Not on filedocumented in this encounter Care Teams Beam Department Supervisor Relationship Specialty Start Date End Date Primary Dipak Kasper MD PCP - General 09/21/1204/18 documented as of this encounter
--- OUTSIDE RECORDS SUMMARY | 2022-06-20 08:55 | XMS_ITS | Encounter Summary ---
:1940 Author Organization [place] Address [address] [place] [address] Care Team Providers Name Role Phone Unavailable Primary Care Provider Unavailable Reason for Visit Reason Comments Surgical Followup left foot post op. Encounter Details Date Type Department Care Team Description 09/17/2011 Office Visit [facility] Sal Chaparro y aftercare Clinic Yumiko Castellanos DPM (Primary Dx) [address] [facility] [address] [address] [place] [address] Social History Tobacco Use Types [...] a regular shoe on lt. F/U prn. NICAL LABORATORY ASST documented in this encounter Nursing Notes 09/17/2011 [...] Surgery aftercar e Results for this VIEWS TECHNICAL LABORATORY ASST procedure are i n the results section. documented in this encounter Results X-ray lt Foot G/E 3 vws* (09/17/2011 9:01 AM TECHNICAL LABORATORY ASST) Anatomical Region Laterality Modality Foot, Ankle Left Other Specimen (Source) Anatomical Collection Method Collection Time Re ceived Time Location / / Volume Laterality 09/17/2011 9:01 AM TECHNICAL LABORATORY ASST Impressions 09/17/2011 11:23 AM TECHNICAL LABORATORY ASST FOOT THREE OR MORE VIEWS LEFT Sep [...]
--- OUTSIDE RECORDS SUMMARY | 2022-06-20 08:55 | XMS_ITS | Encounter Summary ---
:1940 Author Organization [place] Address [address] [place] [address] Care Team Providers Name Role Phone Primary Dr, Unknown Primary Care Provider Unavailable Encounter Details Date Type Department Care Team Description 11/29/2014 - Hospital Encounter [facility] Hang Mcclure phoebe stenosis, lumbar region, without neurogenic claudication; 12/01/2014 [facility] MD Koki AAA (abdominal aortic aneurysm) (H); [place] [address] [facility] Diabetes mellitus (H); [address] [facility] ORTHOPEDICS Hypertension; Drive [address] BPH (benign prostatic hyperp lasia); [place], [place] [address] HLD (hyperlipidemia); [address] [place], [place] Hyperglycemia, drug-induced; [phone] MRSA (methicillin resistant staph aureus ) [...] 90.7 kg (200 lb) 11/29/2014 9:33 AM HORIZONTAL BORING MILL OPERATOR Height 180.3 cm (5' 11) 11/29/2014 9:33 AM HORIZONTAL BORING MILL OPERATOR Body Mass Index 27.89 11/29/2014 9:33 AM HORIZONTAL BORING MILL OPERATOR documented in this encounter Discharge Summaries [...] the office in about 2 weeks. Call [phone] if patient needs to schedule appointment. Dimas Hale PA-C Date: 12/01/2014 Time: 7:49 AM ZONTAL BORING MILL OPERATOR documented in this encounter Medications at [...] (for FLEET) 1 enema Rectal Daily PRN Dainele Rodgers PA-C ??? tamsulosin 24 hr capsule [...] CULTURE - Final result (09/22/2012 3:43 PM HORIZONTAL BORING MILL OPERATOR) [facility] Component Value Range SOURCE [...] Fowler MD Date: 12/01/2014 Time: 2:00 PM [facility] Family Medicine ZONTAL BORING MILL OPERATOR Dimas Hale - 12/01/2014 7:25 AM [...] Low Dias - 11/30/2014 2:35 PM CST GEAR TOOTH GRINDING MACHINE OPERATOR TREATMENT NOTE Name: Speedy Hendricks : 1940 Acupuncture Treatment Patient Type: Orthopedic Intervention Reason: Urinary Retention Patient complaint:: Unable to void Acupunture (Points):: [place] 3, 4, 6, St 29 Risks and benefits discussed. Low Ramirez L.Ac. Date: 11/30/2014 Time: 2:36 PM ZONTAL BORING MILL OPERATOR Marcelino Finch MD - 11/30/2014 8:13 AM CST [facility] Medicine Service Progress Note Assessment/Plan: -Lumbar [...] Radiology Radiology Results: personally reviewed the impression ZONTAL BORING MILL OPERATOR Radha Grey - 11/29/2014 5:01 PM CST Acute Pain Management Team Consulting provider: Dr. Mcclure/Dr. Finch POD#:[id number] Procedure: LEFT L2-3, L3-4 POSTERIOR FUSION AND L3-4 REVISION DECOMPRESSION Home pain regimen: Opioid status: Tolerant Raleigh 7.5/325 mg-1 tabs q 4 -6 h prn-pt reports taking no more than 6 /day Oxycodone 2.5-5 mg po q 4 h prn_juse recent Rx due to increased nerve pain L leg Arthrotec 75 mg po bid prn Current pain regimen: Will change standard regiment of oxycodone scheduled and oxycodone prn to Raleigh 7.5/325 and prn oxycodone. Dilaudid IV bumps [...] tolerant , especially whenviewing Rx history of Raleigh 7.5/325, but he and family report him not taking more than 6 tablets perday of Raleigh 7.5/325, and have new Rx for oxycodone, but reports only taking 2.5 mg dose at a time. He is very sedated now, and will start out conservatively, not knowing exactly how much Raleigh he was taking at home. Pt and family reported he is very sensitive to oxycodone, but does well on Raleigh. Assessment/Plan: Raleigh 7.3/325 1- tablet every 4 hours Oxycodone -2.5 -5 mg po q 4 h prn BTP Discussed with Dr. Finch Will follow pt Radha Grey RPh 11/29/2014 5:02 PM ZONTAL BORING MILL OPERATOR Marcelino Finch MD - 11/29/2014 4:45 PM CST [facility] Medicine Service Progress Note Assessment/Plan: -Lumbar [...] Radiology Radiology Results: personally reviewed the impression ZONTAL BORING MILL OPERATOR Saman Bernard - 11/29/2014 10:38 AM CST [facility]) Hopes: Pt hopes to have his leg pain stop after surgery. Needs: Pt needs support of family. Resources: pt has his spouse and several family members in the room with him as resources and support. Additional Notes: pt joked with this senior internal auditor about Gaines's Day and Saint Yonatan's Day; to thischaplain, having a sense of humor is an additional resource for this patient. Prayer declined, visitonly. Follow up: None planned. Spiritual care upon request. ZONTAL BORING MILL OPERATOR documented in this encounter H&P Notes Hang Mcclure - 11/29/2014 10:46 AM CST The patient's history has been reviewed and there are no pertinent changes ZONTAL BORING MILL OPERATOR documented in this encounter Miscellaneous Notes [...] was seen in the preop area of [facility] today. Low back was marked and [...] two 60 mm rods. The system was foodpanda / hellofood TSRH 3DX. We decorticated the facet joints [...] the instrumentation. All instrumentation was tightened to dental appliance mechanic's specifications. We then closed the deep fascia [...] used during this case Medtronic TSRH 3DX ZONTAL BORING MILL OPERATOR documented in this encounter Plan of Treatment Not on filedocumented as of this encounter Procedures Procedure Name Priority Date/Time Associated Diagnosis Comme nts CROSSMATCH RED CELLS Routine 12/02/2014 10:40 Res ults for this AM HORIZONTAL BORING MILL OPERATOR procedure are i n the results section. CROSSMATCH RED CELLS Routine 12/02/2014 10:40 Res ults for this AM HORIZONTAL BORING MILL OPERATOR procedure are i n the results section. XR LUMBAR SPINE PORT Routine 11/29/2014 1:38 Spinal stenosis, Results for this 2/3 VIEWS PM HORIZONTAL BORING MILL OPERATOR lumbar region, procedure are in without neurogenic the resul ts claudication section. XR SURGERY CHRIS FLUORO Routine 11/29/2014 1:37 Spinal stenosis , Results for this GREATER THAN 5 MIN PM HORIZONTAL BORING MILL OPERATOR lumbar region, procedu re are in without neurogenic the resul ts claudication section. RED CELL ANTIGEN Routine 11/29/2014 10:17 Results for this TYPING NON ABO AM HORIZONTAL BORING MILL OPERATOR procedure are in the results section. ANTIBODY Routine 11/29/2014 10:17 Results for this IDENTIFICATION AM HORIZONTAL BORING MILL OPERATOR procedure are in the results section. EKG CARDIAC - HIM SCAN 11/29/2014 documented in this encounter Results Crossmatch red cells (12/02/2014 10:40 AM HORIZONTAL BORING MILL OPERATOR) [facility] Method Time Signature Crossmatch COMPATIBLE 12/02/2014 BLOOD BANK 10:40 AM HORIZONTAL BORING MILL OPERATOR Unit ABO/RH O Pos 12/02/2014 BLOOD BANK 10:40 AM HORIZONTAL BORING MILL OPERATOR Unit Number [id number] 12/02/2014 BLOOD BANK 10:40 AM HORIZONTAL BORING MILL OPERATOR Status Released 12/02/2014 BLOOD BANK 10:40 AM HORIZONTAL BORING MILL OPERATOR Component Red Blood 12/02/2014 BLOOD BANK Cells 10:40 AM HORIZONTAL BORING MILL OPERATOR Product Code [id number] 12/02/2014 BLOOD BANK 10:40 AM HORIZONTAL BORING MILL OPERATOR Specimen (Source) Anatomical Location Collection Method / Collectio n Time Received Time / Laterality Volume Hang Mcclure MD LAB - BLOOD BANK PRODUCT ORD ER Performing Organization Address [facility] Phon e Number [facility] BLOOD BANK [address] [place] [address] [address] [place] [address] [place] [address] Crossmatch red cells (12/02/2014 10:40 AM HORIZONTAL BORING MILL OPERATOR) [facility] gist Method Time Signature Crossmatch COMPATIBLE 12/02/2014 BLOOD BANK 10:40 AM HORIZONTAL BORING MILL OPERATOR Unit ABO/RH O Pos 12/02/2014 BLOOD BANK 10:40 AM HORIZONTAL BORING MILL OPERATOR Unit Number [id number] 12/02/2014 BLOOD BANK 10:40 AM HORIZONTAL BORING MILL OPERATOR Status Released 12/02/2014 BLOOD BANK 10:40 AM HORIZONTAL BORING MILL OPERATOR Component Red Blood 12/02/2014 BLOOD BANK Cells 10:40 AM HORIZONTAL BORING MILL OPERATOR Product Code [id number] 12/02/2014 BLOOD BANK 10:40 AM HORIZONTAL BORING MILL OPERATOR Specimen (Source) Anatomical Location Collection Method / Collectio n Time Received Time / Laterality Volume Hang Mcclure MD LAB - BLOOD BANK PRODUCT ORD ER Performing Organization Address [facility] Phon e Number [facility] BLOOD BANK [address] [place] [address] [address] [place] [address] [place] [address] XR Lumbar Spine Port 2/3 Views (11/29/2014 1:38 PM HORIZONTAL BORING MILL OPERATOR) Anatomical Region Laterality Modality Spine Other Specimen (Source) Anatomical Location Collection Method / Collectio n Time Received Time / Laterality Volume Narrative 11/29/2014 1:51 PM HORIZONTAL BORING MILL OPERATOR XR LUMBAR SPINE 2 OR 3 [...] Fluoro G/T 5 Min (11/29/2014 1:37 PM HORIZONTAL BORING MILL OPERATOR) Anatomical Region Laterality Modality Abdomen/Pelvis Other Specimen (Source) Anatomical Location Collection Method / Collectio n Time Received Time / Laterality Volume Narrative 11/29/2014 1:37 PM HORIZONTAL BORING MILL OPERATOR Please see the Radiology Report for result for body part of interest. Procedure Note David Girard - 03/23/2021Formatt ing of this note might be different from the original. Please see the Radiology Report for resu lt for body part of interest. Hang Mcclure MD IMG DIAGNOSTIC IMAGING ORDER BRAYDEN Antibody identification (11/29/2014 10:17 AM HORIZONTAL BORING MILL OPERATOR) Patholo gist Method Time Signature Antibody > 3hr for 11/29/2014 BLOOD BANK Identification more 1:34 PM HORIZONTAL BORING MILL OPERATOR blood;[place] Specimen Anatomical Collection Method / Collection Time Recei fany Time (Source) Location / Volume Laterality Blood specimen Venipuncture / 11/29/2014 10:17 015 1:34 (specimen) Unknown AM HORIZONTAL BORING MILL OPERATOR PM HORIZONTAL BORING MILL OPERATOR Hang Mcclure MD LAB - BLOOD BANK TEST ORDER Performing Organization Address City/State/ZIP Code Phon e Number [facility] BLOOD BANK [address] [place] [address] BLOOD BANK [address] [place] [address] Red Cell Antigen Typing Non ABO: (11/29/2014 10:17 AM HORIZONTAL BORING MILL OPERATOR) P athologist Signature K Antigen Type Negative 11/29/2014 BLOOD BANK 1:16 PM HORIZONTAL BORING MILL OPERATOR Specimen Anatomical Collection Method / Collection Time Recei fany Time (Source) Location / Volume Laterality Blood specimen Venipuncture / 11/29/2014 10:17 015 1:16 (specimen) Unknown AM HORIZONTAL BORING MILL OPERATOR PM HORIZONTAL BORING MILL OPERATOR Narrative [facility] BLOOD BANK - 11/29/2014 1:16 PM HORIZONTAL BORING MILL OPERATOR K Antigen Hang Mcclure MD LAB - BLOOD BANK TEST ORDER Performing Organization Address City/State/ZIP Code Phon e Number [facility] BLOOD BANK [address] [place] [address] BLOOD BANK [address] [place] [address] EKG CARDIAC - HIM SCAN (11/29/2014) Specimen [...] documented in this encounter Care Teams Manager Civil Relationship Specialty Start Date End Date Primary Dipak Kasper MD PCP - General 09/21/1204/18 documented as of this encounter
--- OUTSIDE RECORDS SUMMARY | 2022-06-20 08:55 | XMS_ITS | Encounter Summary ---
:1940 Author Organization [facility] Address [address] [place] [address] Care Team Providers Name Role Phone Primary Dr, Dipak WELSH Primary Care Provider Unavailable Reason for Visit Reason Comments Derm Problem MOHS Encounter Details Date Type Department Care Team Description 11/06/2016 Office Visit [facility] Jon White Basal cell carcinoma of nose (Primary Dx); Clinic [place] MD Aubrey [place]; [place] [address] [place] (seborrheic keratosis); [address] [address] [place], [place] [phone] [address] (Work) [phone] Social History Tobacco Use Types Packs/Day Years [...] Comments Blood Pressure 203/105 11/06/2016 10:05 AM UNIX ADMINISTRATOR Pulse 64 11/06/2016 10:05 AM UNIX ADMINISTRATOR Temperature - - Respiratory Rate - - Oxygen Saturation 96% 11/06/2016 10:05 AM UNIX ADMINISTRATOR Inhaled Oxygen Concentration - - Weight - - Height - - Body Mass Index - - documented in this encounter Patient Instructions Patient InstructionsLillian Aj CMA - 11/06/2016 10:52 AM CST Sutured Wound Care [facility]: [phone] [facility]: [phone] ? No strenuous activity for 48 hours. [...] occurs. In case of emergency phone:Dr White [phone] ADMINISTRATOR documented in this encounter Progress Notes Jon [...] ??? Ent surgery tonsils ??? Appendectomy ??? Spalding teeth[ ??? Remove hardware foot 09/30/2012 Procedure: [...] will return in one week forwound evaluation. ADMINISTRATOR documented in this encounter Nursing Notes Farzana Harris CMA - 11/06/2016 10:52 AM CST Surgical Office Location: [facility] Dermatology [address] [place] [address] ADMINISTRATOR Lillian Aj CMA - 11/06/2016 10:06 AM CST Initial BP 203/105 mmHg Pulse 64 SpO2 96% Estimated body mass index is 32.10 kg/(m^2) as calculated from the following: Height as of 10/22/12: 1.702 m (5' 7). Weight as of 10/22/12: 92.987 kg (205 lb). . ADMINISTRATOR documented in this encounter Plan of Treatment Not on filedocumented as of this encounter Procedures Procedure Name Priority Date/Time Associated Diagnosis Comme nts HC MOHS Routine 11/06/2016 10:51 AM Basal cell carcinoma of HEAD/NCK/HND/FT/GEN UNIX ADMINISTRATOR nose 1ST STAGE UP T0 5 BLOCKS HC ADJ TISSUE XFER Routine 11/06/2016 10:51 AM Basal cell carc inoma of LID/NOS/EAR/LIP UNIX ADMINISTRATOR nose 10.1-30 CM documented in this encounter Visit Diagnoses Diagnosis Basal cell carcinoma of nose - Primary Basal cell carcinoma of skin of other an d unspecified parts of face Lentigo Other dyschromia [place] (seborrheic keratosis) Other seborrheic keratosis Angioma Hemangioma of unspecified site documented in this encounter Care Teams Pretzel Twister Relationship Specialty Start Date End Date Primary Dipak Kasper MD PCP - General 09/21/1204/18 documented as of this encounter
--- OUTSIDE RECORDS SUMMARY | 2022-06-20 08:55 | XMS_ITS | Encounter Summary ---
:1940 Author Organization [place] Address [address] [place] [address] Care Team Providers Name Role Phone Primary Dr, Dipak WELSH Primary Care Provider Unavailable Celina Coley Primary Care Provider [facility] Primary Care Provider [phone] Jon White MD Unavailable [phone] Ramiro Loco MD Unavailable Gallito Gonzalez [...] documented as of this encounter Care Teams Service Crew Supervisor Relationship Specialty Start Date End Date Primary Dr, Dipak, PCP - General 09/21/1204/18 Celina Coley PCP - General Family Practice 05/05/17 05/11/[address] [address] [facility] P[facility] - General 05/12/[address] [address] Jon White Assigned Surgical Provider 08/10/20 12/08/20 MD Aubrey [address] [place] [address] Ramiro Loco MD Assigned Heart and 08/10/20 05/11/21 [address] Vascular Provider [place] [address] Gallito Gonzalez, Assigned Heart and 09/29/21 Vascular Provider [address] [place] [address] documented as of this encounter
--- OUTSIDE RECORDS SUMMARY | 2022-06-20 08:55 | XMS_ITS | Encounter Summary ---
:1940 Author Organization [facility] Address [address] [place] [address] Care Team Providers Name Role Phone Primary Dr, Unknown MD Primary Care Provider Unavailable Reason for Visit Auth/Cert - Closed Specialty Diagnoses / Procedures Referred By Contact Refer red To Contact Surgery Diagnoses painful internal fixation left foot Rh Periop Services Procedures REMOVE HARDWARE FOOT [address] [place], [place] [address] Fax: Referral ID Status Reason Start Date Expiration Date Visits Requ ested Visits Authorized [id number] Closed 1 1 Encounter Details Date Type Department Care Team Description 09/30/2012 Surgery [facility] Daniel Trujillo har dware removel left [place] [facility] es DPM foot [address] [facility] [place] [phone] [place] [address] (Wo rk) Surgery Details Date/Time Status Location [...] Comments Blood Pressure 137/81 09/30/2012 10:30 AM WRAPPING MACHINE TENDER Pulse - - Temperature 35.9 ??C (96.6 ??F) 09/30/2012 10:24 AM WRAPPING MACHINE TENDER Respiratory Rate 20 09/30/2012 10:24 AM WRAPPING MACHINE TENDER Oxygen Saturation 98% 09/30/2012 10:24 AM WRAPPING MACHINE TENDER Inhaled Oxygen Concentration - - Weight 93 kg (205 lb) 09/30/2012 10:24 AM WRAPPING MACHINE TENDER Height 170.2 cm (5' 7) 09/30/2012 10:24 AM WRAPPING MACHINE TENDER Body Mass Index 32.11 09/30/2012 10:24 AM WRAPPING MACHINE TENDER documented in this encounter Discharge Instructions [...] DR. DANIEL TRUJILLO M.D. CLINIC PHONE NUMBER: [phone]. PING MACHINE TENDER documented in this encounter Medications at [...] Trujillo DPM - 09/23/2012 4:09 PM CST PING MACHINE TENDER documented in this encounter Nursing Notes Iwona Ruiz RN - 09/30/2012 12:33 PM CST First Panel started at 1210 and ended at 1230. Second panel started at 1230 and ended at 1237. Jen Ruiz RN PING MACHINE TENDER Iwona Ruiz RN - 09/30/2012 12:22 PM CST Patient did not want his hardware that was removed from procedure on 09/30/[address] Trujillo. Jen Ruiz RN PING MACHINE TENDER documented in this encounter OR Notes OR Anesthesia - Daniel Trujillo DPM - 10/01/2012 9:43 AM CST PING MACHINE TENDER documented in this encounter Miscellaneous Notes [...] DPM MT: [id number] Name: ELDA HENDRICKS Account: [id number] : 1940 Procedure Date: 09/30/2012 Document: [id number] cc: Ramiro Walker MD PING MACHINE TENDER Brief Op Note - Daniel Trujillo DPM - 09/30/2012 1:[address] [facility] Podiatry/Foot and Ankle Surgery Brief Operative Note Pre-operative diagnosis: Painful Internal Fixation left foot Painful recurrence of toenail right great toe Post-operative diagnosis same Procedure: Procedure(s): Hardware Removal left foot - Deep Surgical matrixectomy right great toe Surgeon: DANIEL TRUJILLO DPM Assistants(s): Anesthesia: MAC Estimated blood loss: 5 cc PING MACHINE TENDER documented in this encounter Plan of Treatment Not on filedocumented as of this encounter Procedures Procedure Name Priority Date/Time Associated Diagnosis Comme nts XR FOOT PORT LEFT 3 Routine 09/30/2012 1:44 PM Re sults for this VIEWS WRAPPING MACHINE TENDER procedure are i n the results section. EXCISION, TOENAIL 09/30/2012 11:41 AM painful internal WRAPPING MACHINE TENDER fixation left foot Special Needs 5'# Hx MRSA REMOVAL, HARDWARE, FOOT 09/30/2012 11:41 AM WRAPPING MACHINE TENDER painfu l internal fixation left foot Special Needs 5'# Hx MRSA EKG 12-LEAD, TRACING ONLY Routine 09/30/2012 11:38 AM WRAPPING MACHINE TENDER Results for this procedure are in the resu lts section. HIM ECG SCAN Routine 09/30/2012 documented in this encounter Results X-ray LEFT Foot 3 vw port (09/30/2012 1:44 PM WRAPPING MACHINE TENDER) Anatomical Region Laterality Modality Left Foot Left Other Specimen (Source) Anatomical Collection Method Collection Time Re ceived Time Location / / Volume Laterality 09/30/2012 1:44 PM WRAPPING MACHINE TENDER Impressions 10/01/2012 10:47 AM WRAPPING MACHINE TENDER IMPRESSION: Postoperative and degenerative change. No acute abnormality. ODILON RANDOLPH MD Narrative 10/01/2012 10:47 AM WRAPPING MACHINE TENDER LEFT FOOT THREE OR MORE VIEWS [...] EKG 12-lead, tracing only (09/30/2012 11:38 AM WRAPPING MACHINE TENDER) Component Value Ref Range Test Analysis Performed Pathologis t Method Time At Signature Ventricular Rate 64 BPM RADIOLOGY RESULTS Atrial Rate 64 BPM RADIOLOGY RESULTS TN Interval 154 ms RADIOLOGY RESULTS QRS Duration 80 ms RADIOLOGY RESULTS QT 410 ms RADIOLOGY RESULTS QTc 422 ms RADIOLOGY RESULTS P [place] -1 degrees RADIOLOGY RESULTS R AXIS -9 degrees RADIOLOGY RESULTS T [place] -7 degrees RADIOLOGY RESULTS Interpretation Sinus rhythm [...] / / Volume Laterality 09/30/2012 11:38 AM WRAPPING MACHINE TENDER Doctor Unknown ECG ORDERABLES Performing Organization Address [...] 15 mLs Operative injection 0.5% (PF) PM WRAPPING MACHINE TENDER Site/Surgical S ite PRN, Starting on Yesenia 09/30/12 at 1238, Intra-procedure fentaNYL (SUBLIMAZE) injection 25-50 mcg Given 09/30/2012 2:16 PM WRAPPING MACHINE TENDER 50 mcg 25-50 mcg, Intravenous, EVERY 2 MIN PRN, other, acute pain, Starting on Yesenia 09/30/12 at 1251, MAX cumulative dose = 250 mcg. Use Fentanyl initially, as a short acting agent for acute pain control. If insufficient, or a longer acting agent is needed, begin Morphine or Hydromorphone if ordered., PACU Given 09/30/2012 1:33 PM WRAPPING MACHINE TENDER 50 mcg HYDROcodone-acetaminophen 5-325 MG per Given 09/30/2012 2:16 PM WRAPPING MACHINE TENDER 1 tablet tablet 1-2 tablet 1-2 tablet, Oral, ONCE, On Yes[place] 09/30/12 at 1330, For 1 dose, One time prior to discharge., Post-procedure lactated ringers infusion New Bag 09/30/2012 1:33 PM WRAPPING MACHINE TENDER 1,000 mLs 100 mL/hr at 100 mL/hr, Intravenous, CONTINUOUS, Continue until IV catheter is weaned, PACU, Starting on Yesenia 09/30/12 at 1300, Until Yesenia 09/30/12 at 1723 lidocaine (PF) (XYLOCAINE) Given 09/30/2012 12:40 PM 4 mLs Operative Site/Surgical 1 % injection WRAPPING MACHINE TENDER Site PRN, Starting on Yes[place] 09/30/12 at 1238, Intra-procedure sodium chloride 0.9% Given 09/30/2012 12:41 PM 100 mLs Operative Site/Surgical (bottle) irrigation WRAPPING MACHINE TENDER Site PRN, Starting on [place] 09/30/12 at 1241, Area to irrigate and instructions: ., Intra-procedure documented in this encounter Active and Recently Administered Medications Times are shown in WRAPPING MACHINE TENDER. Scheduled Medication Order 09/28/2012 09/29/2012 09/30/2012 [...] 1152 (Given - Provider: Lety Guzman APRN FLIGHT SIMULATOR TEACHER) 900 mg, Intravenous, for 60 Minutes, EMIL [...] Intra-procedure documented in this encounter Care Teams Cable Installer Repairer Relationship Specialty Start Date End Date Primary Dipak Kasper MD PCP - General 09/21/1204/18 documented as of this encounter
--- OUTSIDE RECORDS SUMMARY | 2022-06-20 08:55 | XMS_ITS | Encounter Summary ---
:1940 Author Organization [facility] Address [address] [place] [address] Care Team Providers Name Role Phone Primary DrDipak MD Primary Care Provider Unavailable Celina Coley Primary Care Provider [facility] Primary Care Provider [phone] Jon White MD Unavailable [phone] Ramiro Loco MD Unavailable Encounter Details Date Type Department Care Team Description 05/02/2014 Anesthesia - [facility] Zoltan Arizmendi MD [address] [place] [address] [phone] Social History Tobacco Use Types Packs/Day [...] documented as of this encounter Care Teams Topographical Engineer Relationship Specialty Start Date End Date Primary Dipak Kasper MD PCP - General 09/21/1204/18 Celina Coley PCP - General Family Practice 05/05/17 05/11/[address] [address] Kehinde Portillo PCP - General 05/12/[address] [address] Jon White Assigned Surgical Provider 08/10/20 12/08/20 MD Aubrey [address] [place] [address] Ramiro Loco MD Assigned Heart and 08/10/20 05/11/21 [address] [place] [address] Vascular Provider [place] [address] documented as of this encounter
--- OUTSIDE RECORDS SUMMARY | 2022-06-20 08:55 | XMS_ITS | Encounter Summary ---
:1940 Author Organization [place] Address [address] [place] [address] Care Team Providers Name Role Phone Unavailable Primary Care Provider Unavailable Encounter Details Date Type Department Care Team Description 08/05/2012 Telephone [facility] Sal Chaparro DPM [address] [address] [place] [address] [place], [place] [address] (Wo rk) Social History Tobacco [...] outlook. Date/Time: 09/30/2012 @ 12:50 pm [facility] Anesthesia: MAC Surgeon: Juana CourtneyPNomanMNoman Preop:Unknown Consent: Hardware removal left foot Surgeon Procedure Time: 30 min Anesthesia: MAC Location: [facility] Pre-Operative Medications: Clindamycin 900 mg IV pre-op Special Instrumentation: Synthes mini locking plate screw coach tour driver Electronically signed by Sal Chaparro DPM [...]
--- OUTSIDE RECORDS SUMMARY | 2022-06-20 08:55 | XMS_ITS | Encounter Summary ---
:1940 Author Organization [place] Address [address] [place] [address] Care Team Providers Name Role Phone Unavailable Primary Care Provider Unavailable Reason for Visit Reason Comments Surgical Followup 02/06 post op left foot 2nd m etatarsal Fx. Encounter Details Date Type Department Care Team Description 03/05/2011 Office Visit [facility] Sal Chaparro aftercare Clinic Yumiko Castellanos DPM (Primary Dx) [address] [place] [phone] [place] [address] Social History Tobacco Use Types [...]
--- OUTSIDE RECORDS SUMMARY | 2022-06-20 08:55 | XMS_ITS | Encounter Summary ---
:1940 Author Organization [place] Address [address] [place] [address] Care Team Providers Name Role Phone Primary Dr, Unknown MD Primary Care Provider Unavailable Reason for Visit Reason Onset Date Comments Call To Schedule Appointment 10/08/2012 Encounter Details Date Type Department Care Team Description 10/08/2012 Telephone [facility] Sal Engel, Call To Schedule [address] [place] [phone] 1021 [facility] [phone] [facility] 100 [place], [place] [address] (Wo rk) Social History Tobacco Use Types [...] Is scheduled for 10/22/12. Marianne Kim RN ION PLANNER Telephone Encounter - Sal Chaparro DPM - 10/08/2012 10:28 AM MISSION PLANNER Marianne, Would recommend F/U appt either Dr. Nesbitt or myself in 2-3 wks. ION PLANNER Telephone Encounter - Brittany Phan - 10/08/2012 10:08 AM CST Pt no showed appt today and you are off next week do you want him to f/u with another provider or see you the following week? ION PLANNER Telephone Encounter - Nelida Davalos - 10/08/2012 7:53 AM CST Patient was told to schedule an appointment two weeks after operation which would be on ThursdayOctober 22. Dr. Chaparro stated he would like to see patient exactly two weeks after operation and to fit him into the schedule. Please contact patient to schedule appointment. Thank you, Nelida Lopez Central Scheduling ION PLANNER documented in this encounter Plan of Treatment Not on filedocumented as of this encounter Visit Diagnoses Not on filedocumented in this encounter Care Teams Tugger 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
--- OUTSIDE RECORDS SUMMARY | 2022-06-20 08:55 | XMS_ITS | Encounter Summary ---
:1940 Author Organization [place] Address [address] [place] [address] Care Team Providers Name Role Phone Primary Dr, Unknown MD Primary Care Provider Unavailable Reason for Visit Reason Onset Date Comments Patient/info Update 10/04/2012 Encounter Details Date Type Department Care Team Description 10/04/[address] [facility] Sal Chaparro, Patient/info Update Yumiko WELSH MD [address] [facility] [address] [facility] [phone] [place], [place] [id number] (Wo rk) Social History Tobacco Use Types [...] Sal Chaparro, DPJami - 10/05/2012 11:14 AM CASTING CLEANER Spoke w/ pt and we will check him today (10/05/12) @ 11:30 ING CLEANER Telephone Encounter - Amber Mead - 10/04/2012 11:[address] Nesbitt. ALINE Gordon. Please read. Message below. Let me know if I can assist at all. Amber Mead CMA ([facility]) ING CLEANER Telephone Encounter - Sandra Melgar - 10/04/2012 10:[address] Nesbitt has placed this rx. Rx faxed. Jaime Melgar CMA ([facility]) ING CLEANER Telephone Encounter - Amber Mead - 10/04/2012 [...] but patient feels lousy Spoke with DPM industry consultant, Dr. Green. He recommended Bactrim DS BID x 10 days Called RX into [facility] per patient's daughter request. Called Raquel back and left message on cell phone ([phone]), offered 230 appointment in [place] with Dr. Green if would like. Otherwise, f/u with Dr. Chaparro this week. Patient's daughter is requesting refill of [place] [phone] - , can you approve and I can call in? Amber Mead CMA ([facility]) ING CLEANER documented in this encounter Plan of Treatment Not on filedocumented as of this encounter Visit Diagnoses Diagnosis Ingrowing nail - Primary Pain in limb documented in this encounter Care Teams Hardware Engineer Relationship Specialty Start Date End Date Primary Dr, Unknown, MD PCP - General 09/21/1204/18 documented as of this encounter
--- OUTSIDE RECORDS SUMMARY | 2022-06-20 08:55 | XMS_ITS | Encounter Summary ---
:1940 Author Organization [place] Address [address] [place] [address] Care Team Providers Name Role Phone Unavailable Primary Care Provider Unavailable Reason for Visit Reason Onset Date Comments Patient Inquiry 02/19/2011 [facility] and Creat risi ng Encounter Details Date Type Department Care Team Description 02/19/2011 Telephone [facility] Sal Chaparro Pat iestar Inquiry ([facility] [place] DPM and Creat rising) [address] [place] [place] [address] [phone] Social History Tobacco Use Types Packs/Day Years [...] and call daughter Raquel with plan @ [phone]. Thanks, Aruna Arriaza RN documented in this encounter Plan of Treatment Not on filedocumented as of this encounter Visit Diagnoses Not on filedocumented in this encounter
--- OUTSIDE RECORDS SUMMARY | 2022-06-20 08:55 | XMS_ITS | Encounter Summary ---
:1940 Author Organization [place] Address [address] [place] [address] Care Team Providers Name Role Phone Primary Dr, Unknown MD Primary Care Provider Unavailable Reason for Visit Reason Comments Surgical Followup bilat infections Encounter Details Date Type Department Care Team Description 10/05/2012 Office Visit [facility] Sal Chaparro [facility] are following Clinic [place] F, DPM surgery of the [address] [place] [address] musculoskeletal system, [place], [place] E NEC (Primary Dx) [phone] [place] [address] [place], [place] [address] Social History Tobacco Use Types [...] Comments Blood Pressure 136/80 10/05/2012 12:04 PM [employer] Pulse 60 10/05/2012 12:04 PM [employer] Temperature 36.8 ??C (98.2 ??F) 10/05/2012 12:04 PM [employer] Respiratory Rate - - Oxygen Saturation - - Inhaled Oxygen Concentration - - Weight 93 kg (205 lb) 10/05/2012 12:04 PM [employer] Height 170.2 cm (5' 7) 10/05/2012 12:04 PM [employer] Body Mass Index 32.11 10/05/2012 12:04 PM [employer]LING H[employer] documented in this encounter Progress Notes Sal [...] or concerns and follow-up in 1-2 wks. 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 URIC ACID Routine 10/05/2012 12:21 Aftercare following Resu lts for this PM [employer] surgery of the procedure are in musculoskeletal system, the results NEC section. BASIC METABOLIC Routine 10/05/2012 12:21 Aftercare following R esults for this PANEL PM [employer] surgery of the procedure are in musculoskeletal system, the results NEC section. WOUND CULTURE Routine 10/05/2012 12:20 Aftercare following Res ults for this AEROBIC BACTERIAL PM [employer] surgery of the procedur e are in musculoskeletal system, the results NEC section. documented in this encounter Results (ABNORMAL) Basic metabolic panel (Ca, Cl, CO2, Creat, Gluc, K, Na, BUN) (10/05/2012 12:21 PM [employer]) Analysis Performed At [facility] logist Time Signature Sodium 140 133 - 144 [place] mmol/L [facility] Potassium 4.8 3.4 - 5.3 [place] mmol/L [facility] Chloride 103 94 - 109 [facility] mmol/L [facility] Carbon Dioxide 25 20 - 32 [facility] mmol/L [facility] Anion Gap 12 6 - 17 [place] mmol/L [facility] Glucose 108 (H) 60 - 99 [place] mg/dL [facility] Urea Nitrogen 23 7 - 30 [place] mg/dL [facility] Creatinine 1.41 (H) 0.66 - [facility] 1.25 mg/dL [facility] GFR Estimate 50 (L) >60 [place] mL/min/1.7 [facility] m2 LAB GFR Estimate If 60 (L) >60 [place] Black mL/min/1.7 [facility] m2 LAB Calcium 9.5 8.5 - 10.4 [place] mg/dL [facility] Specimen Anatomical Collection Method Collection Time Receive d Time (Source) Location / / Volume Laterality Blood specimen 10/05/2012 12:21 2 (specimen) PM [employer] 12:22 PM [employer] Sal Chaparro DPM LAB - BLOOD ORDERABLES Performing Organization Address City/State/ZIP Code Phon e Number [facility] [address] [place] [address] [facility] (ABNORMAL) CBC with platelets and differential (10/05/2012 12:21 PM [employer]) [facility] gist Method Time Signature WBC 7.8 4.0 - [facility] 11.0 [facility] 10e9/L CLINIC LAB RBC Count 4.45 4.4 - 5.9 [place] 10e12/L [facility] Hemoglobin 14.6 13.3 - [facility] 17.7 g/dL [facility] Hematocrit 43.2 40.0 - [facility] 53.0 % [facility] MCV 97 78 - 100 [facility] MCH 32.8 26.5 - [place] 33.0 pg [facility] MCHC 33.8 31.5 - [place] 36.5 g/dL [facility] RDW 12.9 10.0 - [place] 15.0 % [facility] Platelet Count 152 150 - 450 [place] 10e9/L [facility] Diff Method Automated [place] Method [facility] % Neutrophils 62.1 40 - 75 % [facility] % Lymphocytes 18.9 (L) 20 - 48 % [facility] % Monocytes 13.4 (H) 0 - 12 % [facility] % Eosinophils 5.2 0 - 6 % [facility] % Basophils 0.4 0 - 2 % [facility] Absolute 4.9 1.6 - 8.3 [place] Neutrophil 10e9/L [facility] Absolute 1.5 0.8 - 5.3 [place] Lymphocytes 10e9/L [facility] Absolute 1.1 0.0 - 1.3 [place] Monocytes 10e9/L [facility] Absolute 0.4 0.0 - 0.7 [place] Eosinophils 10e9/L [facility] Absolute 0.0 0.0 - 0.2 [place] Basophils 10e9/L [facility] Specimen Anatomical Collection Method Collection Time Receive d Time (Source) Location / / Volume Laterality Blood specimen 10/05/2012 12:21 2 (specimen) PM [employer] 12:22 PM [employer] Sal Chaparro DPM LAB - BLOOD ORDERABLES Performing Organization Address City/State/ZIP Code Phon e Number [facility] [address] [place] [address] [facility] Uric acid (10/05/2012 12:21 PM [employer]) P athologist Signature Uric Acid 7.1 3.5 - 8.5 [place] mg/dL CLINIC LAB Specimen Anatomical Collection Method Collection Time Receive d Time (Source) Location / / Volume Laterality Blood specimen 10/05/2012 12:21 2 (specimen) PM [employer] 12:22 PM [employer] Sal Chaparro DPJami LAB - BLOOD ORDERABLES Performing Organization Address City/State/ZIP Code Phon e Number [facility] [address] [place] [address] [facility] Wound culture (10/05/2012 12:20 PM [employer]) [employer] Method Time Signature Specimen Other [facility] [place] [facility] Culture Micro No growth [facility] MICROBIOLOGY Micro Report FINAL [facility] Status 10/07/2012 MICROBIOLOGY Specimen Anatomical Collection Method Collection Time Receive d Time (Source) Location / / Volume Laterality Specimen from 10/05/2012 12:20 10/05/2012 wound (specimen) PM [employer] 12:41 PM CS T Sal Chaparro DPM LAB - MICRO GENERAL ORDERABL ES Performing Organization Address City/State/ZIP Code Phon e Number [facility] [address] [place] [address] [facility] MICROBIOLOGY documented in this encounter Visit Diagnoses Diagnosis Aftercare following surgery of the [facility] loskeletal system, NEC - Primary documented in this encounter Care Teams Telemetry Nurse Relationship Specialty Start Date End Date Primary Dipak Kasper MD PCP - General 09/21/1204/18 documented as of this encounter
--- OUTSIDE RECORDS SUMMARY | 2022-06-20 08:55 | XMS_ITS | Encounter Summary ---
:1940 Author Organization [place] Address [address] [place] [address] Care Team Providers Name Role Phone Unavailable Primary Care Provider Unavailable Reason for Visit Reason Comments Surgical Followup 02/06 left foot post op. Encounter Details Date Type Department Care Team Description 06/04/2011 Office Visit [facility] Sal Chaparro aftercare (Primary Dx); Clinic Yumiko Castellanos DPM [place] [address] [place] [address] [place] [phone] [place] [address] Social History Tobacco Use Types [...] - Primary Other specified aftercare following surg aani [place] documented in this encounter
--- OUTSIDE RECORDS SUMMARY | 2022-06-20 08:55 | XMS_ITS | Encounter Summary ---
:1940 Author Organization [place] Address [address] [place] [address] Care Team Providers Name Role Phone Unavailable Primary Care Provider Unavailable Reason for Visit Reason Comments Surgical Followup follow up to left foot surge ry. Encounter Details Date Type Department Care Team Description 07/16/2011 Office Visit [facility] Sal Chaparro Foot p ain (Primary Dx); Clinic Yumiko Castellanos DPM [place] [address] [place] [address] [place] [phone] [place] [address] Social History Tobacco Use Types [...]
--- OUTSIDE RECORDS SUMMARY | 2022-06-20 08:55 | XMS_ITS | Encounter Summary ---
:1940 Author Organization [place] Address [address] [place] [address] Care Team Providers Name Role Phone Primary DrDipak MD Primary Care Provider Unavailable Celina Coley Primary Care Provider [facility] [place] Primary Care Provider [phone] Jon White MD Unavailable [phone] Ramiro Loco MD Unavailable Encounter Details Date Type Department Care Team Description 04/18/2014 [facility] Provider, [place] [facility] Information [facility] [address] [facility] 180 [place] [address] Social History Tobacco Use Types Packs/Day Years [...] documented as of this encounter Care Teams Loading Supervisor Relationship Specialty Start Date End Date Primary Dipak Kasper MD PCP - General 09/21/1204/18 [place] Coley PCP - General Family Practice 05/05/17 05/11/[address] [address] Kehinde Portillo PCP - General 05/12/[address] [address] Jon White Assigned Surgical Provider 08/10/20 12/08/20 MD Aubrey [address] [place] [address] Ramiro Loco MD Assigned Heart and 08/10/20 05/11/21 [address] Vascular Provider [place] [address] documented as of this encounter
--- OUTSIDE RECORDS SUMMARY | 2022-06-20 08:56 | XMS_ITS | Encounter Summary ---
:1940 Author Organization [place] Address [address] [place] [address] Care Team Providers Name Role Phone Unavailable Primary Care Provider Unavailable Reason for Visit Reason Onset Date Comments Surgical Followup 02/08/2011 Encounter Details Date Type Department Care Team Description 02/08/2011 Telephone [facility] Sal Chaparro, Surgical Followup [place] DPM [address] [place] [address] [facility] 100 [place], [place] [address] (Wo rk) Social History Tobacco [...]
--- OUTSIDE RECORDS SUMMARY | 2022-06-20 08:56 | XMS_ITS | Encounter Summary ---
:1940 Author Organization [place] Address [address] [place] [address] Care Team Providers Name Role Phone Unavailable Primary Care Provider Unavailable Encounter Details Date Type Department Care Team Description 02/06/2011 Results [facility] Tiffanie meadows, Sal Castellanos, DPM Hospital Results [address] [place] [place], [place] [address] (Wo rk) Social History Tobacco [...]
--- OUTSIDE RECORDS SUMMARY | 2022-06-20 08:56 | XMS_ITS | Encounter Summary ---
:1940 Author Organization [place] Address [facility] [place] [address] Care Team Providers Name Role Phone Unavailable Primary Care Provider Unavailable Reason for Visit Reason Comments Musculoskeletal Problem pt states he broke his left great toe and 2nd toe. He is still having trouble/pain in his 2nd toe. Sx since September. Encounter Details Date Type Department Care Team Description 01/29/2011 Office Visit [facility] Sal Chaparro Fractu re, nonunion (Primary Dx); Clinic [place] F, DPM Other hammer toe (acquired); [address] [place] [address] Pain in so ft tissues of limb [place] E [facility] [phone] [place], [place] [id number] Social History Tobacco Use Types Packs/Day Years Used Date Never Assessed Sex Assigned at Date Recorded Not on file documented as of this encounter Progress Notes Sal Chaparro - 01/30/2011 4:52 PM CDT Subjective: Pt is seen today as a new pt self referral with [facility]. 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 Pt has been treated in [facility] [...] area. X-rays were reviewed Nov 2010 [facility] clinic with the pt which show a [...]
--- OUTSIDE RECORDS SUMMARY | 2022-06-20 08:56 | XMS_ITS | Encounter Summary ---
:1940 Author Organization [place] Address [address] [place] [address] Care Team Providers Name Role Phone Unavailable Primary Care Provider Unavailable Reason for Visit Reason Comments Surgical Followup 02/06 left foot post op. Encounter Details Date Type Department Care Team Description 02/14/2011 Office Visit [facility] Sal Chaparro Afterca re following Yariel Castellanos DPM surgery of the [facility] [employer] [address] musculoskeletal system, [place] [address] E NEC (Primary Dx) [phone] [facility] 100 [place], [place] [address] Social History Tobacco Use Types [...] Component Value Ref Test Analysis Performed At [facility] Range Method Time Signature Specimen Toe [place] Description [facility] Culture Micro Heavy growth [place] Methicillin [facility] Staphylococcus aureus (MRSA) Micro Report FINAL 02/17/[address] [facility] Specimen Anatomical Collection Method Collection Time [...] Address City/State/ZIP Code Phon e Number [facility] [address] [place] [address] [facility] documented in this encounter Visit Diagnoses Diagnosis Aftercare following surgery of the [facility] loskeletal system, NEC - Primary documented in this encounter
--- OUTSIDE RECORDS SUMMARY | 2022-06-20 08:56 | XMS_ITS | Encounter Summary ---
:1940 Author Organization [place] Address [address] [place] [address] Care Team Providers Name Role Phone Unavailable Primary Care Provider Unavailable Reason for Visit Reason Onset Date Comments Schedule Surgery 01/30/2011 Encounter Details Date Type Department Care Team Description 01/30/2011 Telephone [facility] Sal Love, Schedule Surgery 14[address] [place] [address] 1021 [facility] E [phone] [address] [address] [place], [place] [address] (Wo rk) Social History Tobacco Use Types Packs/Day Years Used Date Never Assessed Sex Assigned at Date Recorded Not on file documented as of this encounter Miscellaneous Notes Telephone Encounter - Kandy Cain - 02/04/2011 1:02 PM CDT Packet mailed. Kandy Cain CMA Telephone Encounter - Kandy Cain - 01/31/2011 12:49 PM CDT Added to [place] Telephone Encounter - Kandy Cain - 01/31/2011 10:34 AM CDT Surgery scheduled. Left with details. Date/Time: 02/06/2011 @ 10:50 am Hospital: [facility] Anesthesia: POP Surgeon: Sal Chaparro D.P.M. Preop:Unknown [...] surgery details for pt? February 06 or [phone] or [phone] Thank you, Kandy Cain CMA documented in this encounter Plan of Treatment Not on filedocumented as of this encounter Visit Diagnoses Not on filedocumented in this encounter
--- OUTSIDE RECORDS SUMMARY | 2022-06-20 08:56 | XMS_ITS | Encounter Summary ---
:1940 Author Organization [place] Address [address] [place] [address] Care Team Providers Name Role Phone Unavailable Primary Care Provider Unavailable Encounter Details Date Type Department Care Team Description 02/06/2011 Operative Report [facility] Daniel Trujillo, (Textiles And Clothing Teacher) [facility] DPM Results [address] [place], [place] [address] (Wo rk) Social History Tobacco [...] medial and laterally and with a small Maury blade, I was able to carefully dissect [...] DPM MT: [id number] Name: SPEEDY MCDUFFIE Account: [id number] : 1940 Procedure Date: 02/06/2011 Document: [id number] cc: Michelle Hedrick MD documented in this encounter Plan of Treatment Not on filedocumented as of this encounter Visit Diagnoses Not on filedocumented in this encounter
--- OUTSIDE RECORDS SUMMARY | 2022-08-15 11:25 | XMS_ITS ---
:1940 Author Organization [facility] DOCUMENT DISCLAIMER The information in the [facility] Continuity of Care Document represents a summary [...] July Active (Venofer) push 2021 Iron Sucrose Every 100 [...] July 23, 2022 (Calc) Platelets 162 1000/mcL [phone]/mcL - July 23, 2022 HCT 36.8 % Males: 42 - 52% Low July 23, 2022 Females: 37 - 47% Hemoglobin x 3 35.7 % Male: 14.0 - 18.0 Low July 23, 2022 g/dL; Female: 12.0-16.0 g/dL HGB 11.9 g/dL Males: 14.0 - Low July 23 18.0 g/dL Females: 12.0 - 16.0 g/dL RBC 3.76 mill/mcL Males: 4.70 - Low July 23, 6.10 mill/mcL Females: 4.20 - 5.40 mill/mcL [...] 4.4 mEq/L 3.5-5.1 mEq/L - July 23 22 Chloride 102 mEq/L 96-108 mEq/L - July 23 2 BUN 43 mg/dL 6-19 mg/dl High July 23 2 Creatinine, Serum 3.16 mg/dL 0.6-1.3 mg/dL High July BUN/Creat Ratio 13.6 08-07 - July 23, 2022 Sodium 141 mEq/L 136-145 mEq/L - July 23 22 Bicarbonate 28 mEq/L 22-29 mEq/L - July 30 2 Sodium 142 mEq/L 136-145 mEq/L - July 30 22 Potassium 4.3 mEq/L 3.5-5.1 mEq/L - July 30 Creatinine, Serum 3.28 mg/dL 0.6-1.3 mg/dL July 192021 BUN/Creat Ratio 10.7 08-07 - [...] mg/dL 6-19 mg/dl High August 06 2 Bicarbonate 27 mEq/L 22-29 mEq/L - August 13 2 Chloride 99 mEq/L 96-108 mEq/L - August 13 2 Potassium 3.9 mEq/L 3.5-5.1 mEq/L - August 13 Sodium 140 mEq/L 136-145 mEq/L - August 13 BUN/Creat Ratio 10.5 08-07 - August 13, 2022 Creatinine, Serum 3.43 mg/dL 0.6-1.3 mg/dL High July 202021 BUN 36 mg/dL 6-19 mg/dl High August 13 2 HD Adequacy Result Type Result Value Relevant Reference Interpretation Date Range eKt/V 1.28 No Reference range Normal [facility] provided spKt/V (Daugirdas 1.52 No Reference range [...] 82 U/L Males: 40-129 U/L, - O ctober 2021 > 15 yrs Females: 35 - 104 [...] Jugular IMMUNIZATIONS Vaccine Date Dose Route Status [id number], series June 18, 2022 40.0 mcg Intramuscul [...] Units/mL Catheter Lock Arterial; 1600units,Arterial [place] 21, 2022 kg kg 2.25 Ca, Optiflux Hepar in [...]
--- OUTSIDE RECORDS SUMMARY | 2022-08-15 11:26 | XMS_ITS | Encounter Summary ---
:1940 Author Organization [facility] Address [address] [place] [address] Care Team Providers Name Role Phone Unavailable Primary Care Provider Unavailable Encounter Details Date Type Department Care Team Description 05/19/2022 Orders Only [facility] Denilson Quinones MD [address] [place] [address] [place], [place] [phone] [address] (Wo rk) Social History Tobacco Use [...] 24 mL/min APS SPECTRA 2020 [facility] Comment: [facility] has implemented the recommended eGFR calculation that [...] 05/20/2022 Unless otherwise specified, test(s) performed at: [facility], [address] [facility] [address] ASSEMBLER ADJUSTER: Raheem Malik M.D., Ph.D For any questions, please call customer service at FREQUENCY:OTHER Resulting Agency Comment Specimen source: Serum Denilson Holly MD LAB [id number] NSOLICITED RESULTS Performing Organization Address City/[facility] Phon e Number APS SPECTRA [...] 05/20/2022 Unless otherwise specified, test(s) performed at: [facility], [address] [place] [address] ASSEMBLER ADJUSTER: Raheem Malik M.D., Ph.D For any questions, please call customer service at FREQUENCY:OTHER Resulting Agency Comment Specimen source: PD Fluid Denilson Holly MD LAB BLOOD ORDERABLES Performing Organization Address City/[facility] Phon e Number APS SPECTRA [facility] documented in this encounter Visit Diagnoses Not on filedocumented in this encounter
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
--- OUTSIDE RECORDS SUMMARY | 2022-08-15 11:26 | XMS_ITS | Encounter Summary ---
:1940 Author Organization [facility] Address [address] [place] [address] Care Team Providers Name Role Phone Unavailable Primary Care Provider Unavailable Encounter Details Date Type Department Care Team Description 06/11/2022 Orders Only [facility] O f Denilson Quinones MD [address] [place] [address] [place], [place] [phone] (Wo rk) Social History Tobacco Use [...] 06/12/2022 Unless otherwise specified, test(s) performed at: [facility], [address] [place] [address], [place] [address] TOWER TECHNICIAN: Raheem Malik M.D., Ph.D For any questions, please call customer service at FREQUENCY:OTHER Resulting Agency Comment Specimen source: Blood Denilson Holly MD LAB BLOOD ORDERABLES Performing Organization Address City/State/[facility] Code Phon e Number APS [...] 06/12/2022 Unless otherwise specified, test(s) performed at: [facility], [address] [place], [place] [address]ann [place] [address] TOWER TECHNICIAN: Raheem Malik M.D., Ph.D For any questions, please call customer service at FREQUENCY:OTHER Resulting Agency Comment Specimen source: Serum Denilson Holly MD LAB BLOOD ORDERABLES Performing Organization Address City/[facility] Code Phon e Number APS SPECTRA [facility] documented in this encounter Visit Diagnoses Not on filedocumented in this encounter
--- OUTSIDE RECORDS SUMMARY | 2022-08-15 11:26 | XMS_ITS | Encounter Summary ---
:1940 Author Organization [facility] Address [address] [place] [address] Care Team Providers Name Role Phone Unavailable Primary Care Provider Unavailable Encounter Details Date Type Department Care Team Description 06/25/2022 Orders [facility] O f Denilson Quinones MD [address] [place] [address] [place], [place] [phone] (Wo rk) Social History Tobacco Use [...] 06/27/2022 Unless otherwise specified, test(s) performed at: [facility], [address] [place] [address], [place] [address] DATA CONVERSION DEVELOPER: Raheem Malik M.D., Ph.D For any [...] 06/27/2022 Unless otherwise specified, test(s) performed at: [facility], [address] [place] [address] [facility], [place] [address] DATA CONVERSION DEVELOPER: Raheem Malik M.D., Ph.D For any [...] 06/27/2022 Unless otherwise specified, test(s) performed at: [employer] [facility], [address] [place] [address], [place] [address] DATA CONVERSION DEVELOPER: Raheem Malik M.D., Ph.D For any questions, please call customer service at FREQUENCY:MONTHLY Resulting Agency Comment Specimen source: Serum Denilson Holly MD LAB BLOOD ORDERABLES Performing Organization Address City/State/ZIP Code Phon e Number APS SPECTRA [facility] (ABNORMAL) HEMATOLOGY (06/25/2022) [facility] gist Method Time Signature WBC 4.15 (L) [...] 06/27/2022 Unless otherwise specified, test(s) performed at: [employer] [facility], [address] [place] [address], [place] [address] DATA CONVERSION DEVELOPER: Raheem Malik M.D., Ph.D For any questions, please call customer service at FREQUENCY:MONTHLY Resulting Agency Comment Specimen source: Blood Denilson Holly MD LAB BLOOD ORDERABLES Performing Organization Address City/State/ZIP Code Phon e Number APS SPECTRA [facility] documented in this encounter Visit Diagnoses Not on filedocumented in this encounter
--- OUTSIDE RECORDS SUMMARY | 2022-08-15 11:26 | XMS_ITS | Encounter Summary ---
:1940 Author Organization [facility] Address [address] [place] [address] Care Team Providers Name Role Phone Unavailable Primary Care Provider Unavailable Encounter Details Date Type Department Care Team Description 07/09/2022 Orders Only [facility] O f Denilson Quinones MD [address] [place] [address] [place], [place] [phone] (Wo rk) Social History Tobacco Use [...] 07/11/2022 Unless otherwise specified, test(s) performed at: [facility], [address] [place] [address], [place] [address] PLUG GROWER: Raheem Malik M.D., Ph.D For any questions, [...] 07/10/2022 Unless otherwise specified, test(s) performed at: [facility] [facility], [address] [place], [place] [address]ann [facility] [place] [address] PLUG GROWER: Raheem Malik M.D., Ph.D For any questions, please call customer service at FREQUENCY:OTHER Resulting Agency Comment Specimen source: Serum Denilson Holly MD LAB BLOOD ORDERABLES Performing Organization Address City/[facility] Phon e Number APS SPECTRA [facility] documented in this encounter Visit Diagnoses Not on filedocumented in this encounter
--- OUTSIDE RECORDS SUMMARY | 2022-08-15 11:26 | XMS_ITS | Encounter Summary ---
:1940 Author Organization [facility] Address [address] [place] [address] Care Team Providers Name Role Phone Unavailable Primary Care Provider Unavailable Encounter Details Date Type Department Care Team Description 07/30/2022 Treatment [facility] Denilson Pagie MD [address] [address] [place], [place] [phone] [phone] (Wo rk) Social History Tobacco Use Types Packs/Day Years Used Date Smoking Tobacco: Never Assessed Sex Assigned at Date Recorded Not on file documented as of this encounter Miscellaneous Notes Dialysis Note - Denilson Holly MD - 07/30/2022 2:05 PM CDT Date: Jul 30, 2022 Patient Name: Speedy Hendricks : 1940 Chart #: [id number] Sex: M This patient was personally seen [...] PM ) BP (sit): 118/70 AP(-) / HOUSEKEEPER HEAD: 152/99 Pulse: 75 Chairside data as of [...] mcg IVP Every 4 weeks 07/07/2022 07/06/2023 STRAP SETTER: Denilson Holly MD LOCATION: [place] [phone] SCHEDULE: -- 2nd Shift EDW: kg. DIALYZER: [...] of access: PCAD Access placement scheduled at [facility] in July Anemia Assessment HEMOGLOBIN (G/DL) IN [...] at goal. Intact PTH is at goal. Valve Tester will adjust binders and vitamin D per [...]
--- OUTSIDE RECORDS SUMMARY | 2022-08-15 11:26 | XMS_ITS | Clinical Summary ---
:1940 Author Organization [facility] [place] [address] Care Team Providers Name Role Phone Marija Ramirez MD Primary Care Provider [phone] [facility], [place] Unavailable [phone] Allergies Active Allergy Reactions Severity Noted [...] (HC). 04/2017. Hospitalized for th is at [place] 05/15/2017 Overview: Thought to be secondary to [...] 10/03/2009 11/22/2013 [facility] 11/22/2013 facility Overview: Discussed colonoscopy - he'll consider Hyperglycemia 11/27/2008 11/22/2013 Encounters Date Type Specialty Care Team Description 08/11/2022 Telephone Marija Ramirez Medication Management MD Thuy 08/04/2022 Telephone Tone Quinn MD [facility] 06/24/2022 Office Visit Marija Ramirez Medicare AN [...] Description 09/01/2022 [place] [address] [place] [address] (Wo rk) Health Maintenance Due Date Last [...] 06/24/2022 Tdap Completed 06/27/2009 ([facility] Pneumococcal series for age 65+ Completed 12/02/2016, 11/19, 10/03/2009, Additional history exists Goals Goal Patient Goal Associated Recent Patient-Stated? Author Type Problems Progress BLOOD PRESSURE Blood Pressure No Yessenia barrera, - MAINTAINS BP Jami Matute less than 140/90 Medical Devices Implanted Type Area Director Of Program Management Device Shelf Model / Identifier Expiration Serial / Date Lot Screw Canclls 4.0x15mm [id number] - [id number] Spine [employer]ANEK [id number] / Implanted: Qty: 3 on 02/18/2006 at [facility] Implan ts / Plate 42.5mm Zephir - [id number] SO[employer]ANEK [id number] / Implanted: Qty: 1 on 02/18/2006 at [facility] / Procedures Procedure Name Priority Date/Time Associated [...] ss Type Group MEDICARE PART MEDICARE PART [id number] [place] B - [place] USE B HB ONLY nt [address] [place] [address] MEDICARE PART MEDICARE PART [id number] 2007-Prese [place]: [place]S A - [place] USE A HB ONLY nt [address] [place] [address] MEDICARE PPS HC MEDICARE [id number] 2007-Prese PO [address] X 2019 PPS nt [address] [place] [address] BLUE CROSS MR BLUE CROSS [id number] 2016-Presen [address] [address] [place], [place] MR PB ONLY [id number] BLUE CROSS BLUE CROSS [id number] 2016-[place] [address] [address] [place], [place] HB ONLY [id number] Speedy Hendricks Personal/Family Self 1940 [address] [facility] (Home) TRAIL [phone] [place], [place] (Work) [address] Advance Directives Latest Code Status on File Code Status Date Activated Date Inactivated Comments Full Code 04/30/2022 12:01 PM 05/01/2022 2:22 AM Code Status Discussion: Reviewed Preferences Full Code 02/18/2006 7:54 PM 02/20/2006 1:40 PM Full Code 02/18/2006 4:12 PM 02/18/2006 7:54 PM Full Code 02/18/2006 9:49 AM 02/18/2006 4:12 PM Care Teams Log Washer Relationship Specialty Start Date End Date Marija Ramirez MD PCP - General Family Practice 05/13/18 [address] [place] [address] [facility] 06/17/[address] [address]
--- OUTSIDE RECORDS SUMMARY | 2022-08-15 11:26 | XMS_ITS | Encounter Summary ---
:1940 Author Organization [facility] Address [address] [place] [address] Care Team Providers Name Role Phone Unavailable Primary Care Provider Unavailable Encounter Details Date Type Department Care Team Description 05/28/2022 Treatment [facility] O f Denilson Quinones MD [address] [place] [address] [place], [place] [address] [phone] (Wo rk) Social History Tobacco Use Types Packs/Day Years Used Date Smoking Tobacco: Never Assessed Sex Assigned at Date Recorded Not on file documented as of this encounter Miscellaneous Notes Dialysis Note - Denilson Holly MD - 05/28/2022 12:50 PM CDT Date: May 28, 2022 Patient Name: Speedy Hendricks : 1940 Chart #: [id number] Sex: M 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 Transferred from [place] rehab to [facility], hoping to get home. First Hd here today, dry weight much lower than what they had listed it appears. Med list reviewed from [facility], on midodrine for hypotension with HD. The [...] removed). Went to rehab, transferred back to [place] to [facility] for ongoing rehab closer to home. [facility] [place]. His daughter Raquel is ICU/VOCATIONAL REHABILITATION CONSULTANT (ramone currently) and is very involved. Problem [...] is considering. WIll send to [facility] as soon as he accepts Will keep [...]
--- OUTSIDE RECORDS SUMMARY | 2022-08-15 11:26 | XMS_ITS | Encounter Summary ---
:1940 Author Organization [facility] Address [address] [place] [address] Care Team Providers Name Role Phone Unavailable Primary Care Provider Unavailable Encounter Details Date Type Department Care Team Description 07/09/2022 Treatment [facility] O Denilson Chand MD [address] [place] [address] [place], [place] [phone] [address] [phone] (Wo rk) Social History Tobacco Use Types Packs/Day Years Used Date Smoking Tobacco: Never Assessed Sex Assigned at Date Recorded Not on file documented as of this encounter Miscellaneous Notes Dialysis Note - Denilson Holly MD - 07/09/2022 12:48 PM CDT Date: Jul 09, 2022 Patient Name: Speedy Hendricks : 1940 Chart #: [id number] Sex: M This patient was personally seen [...] PM ) BP (sit): 131/80 AP(-) / SALESPERSON BOOKS: 152/102 Pulse: 89 Chairside data as of [...] 03:00 Actual Treatment Time 03:01 03:00 03:03 STERILE TECH: Denilson Holly MD LOCATION: [place] [phone] SCHEDULE: M-W- 2nd Shift EDW: kg. DIALYZER: [...] of access: PCAD Access placement scheduled at [facility] in July Anemia Assessment HEMOGLOBIN (G/DL) IN [...] at goal. Intact PTH is below goal. Systems Project Manager will adjust binders and vitamin D per [...] Name: Speedy Hendricks : 1940 Chart #: [id number] Sex: M Patient Type: ESRD Modality: Hemodialysis Actuarial Trainee: Denilson Holly MD Location: [place] [address] Schedule: -W- 2nd Shift Initial Access Date [...]
--- OUTSIDE RECORDS SUMMARY | 2022-08-15 11:26 | XMS_ITS | Encounter Summary ---
:1940 Author Organization [facility] Address [address] [place] [address] Care Team Providers Name Role Phone Unavailable Primary Care Provider Unavailable Encounter Details Date Type Department Care Team Description 08/06/2022 Treatment [facility] O Denilson Chand MD [address] [address] [place], [place] [phone] (Wo rk) Social History Tobacco Use Types Packs/Day Years Used Date Smoking Tobacco: Never Assessed Sex Assigned at Date Recorded Not on file documented as of this encounter Miscellaneous Notes Dialysis Note - Denilson Holly MD - 08/06/2022 1:09 PM CDT Date: Aug 06, 2022 Patient Name: Speedy Hendricks : 1940 Chart #: [id number] Sex: M This patient was personally seen [...] PM ) BP (sit): 90/50 AP(-) / MANAGER SOLAR: 158/104 Pulse: 77 Chairside data as of [...] mcg IVP Every 4 weeks 07/07/2022 07/06/2023 COMMERCIAL FIELD INSPECTOR: Denilson Holly MD LOCATION: [place] [phone] SCHEDULE: -- 2nd Shift ACCESS: EDW: kg. [...] of access: PCAD Access placement scheduled at [facility] in August 2022 Impression and Plan Stable [...]
--- OUTSIDE RECORDS SUMMARY | 2022-08-15 11:26 | XMS_ITS | Encounter Summary ---
:1940 Author Organization [facility] Address [address] [place] [address] Care Team Providers Name Role Phone Unavailable Primary Care Provider Unavailable Encounter Details Date Type Department Care Team Description 05/23/2022 Orders Only [facility] O f Denilson Quinones MD [address] [place] [address] [place], [place] [phone] (Wo rk) Social History Tobacco Use [...] 05/26/2022 Unless otherwise specified, test(s) performed at: [facility], [address] [place] [address], [place] [address] DIRECTOR AUTO: Raheem Malik M.D., Ph.D For any questions, please call customer service at FREQUENCY:OTHER Resulting Agency Comment Specimen source: Urine Denilson Holly MD LAB URINE ORDERABLES Performing Organization Address [facility] Phon e Number APS SPECTRA [facility] PATIENT INFORMATION (05/23/2022) athologist [facility] Patient BSA 1.75 sq. M. APS SPECTRA [facility] Comment: Normalized values are calculated using t he patient's actual BSA and normalized to the average BSA of 1.73m2. Specimen (Source) Anatomical Collection Method Collection Time Re ceived Time Location / / Volume Laterality 05/23/2022 05/26/2022 12:2 5 PM CDT Narrative APS SPECTRA [facility] - 05/26/2022 Unless otherwise specified, test(s) performed at: [facility], [address] [place] [address], [place] [address] DIRECTOR AUTO: Raheem Malik M.D., Ph.D For any questions, please call customer service at FREQUENCY:OTHER Resulting Agency Comment Specimen source: PD Fluid Denilson Holly MD LAB BLOOD ORDERABLES Performing Organization Address City/[facility] Phon e Number APS SPECTRA [facility] [...] 27 mL/min APS SPECTRA 2020 [facility] Comment: [facility] has implemented the recommended eGFR calculation that [...] 05/26/2022 Unless otherwise specified, test(s) performed at: [facility], [address] [place] [address], [place] [address] DIRECTOR AUTO: Raheem Malik M.D., Ph.D For any questions, please call customer service at FREQUENCY:OTHER Resulting Agency Comment Specimen source: Serum Denilson Holly MD LAB [id number] NSOLICITED RESULTS Performing Organization Address City/State/ZIP Code [...] 05/26/2022 Unless otherwise specified, test(s) performed at: [facility], [address] [place] [address], [place] [address] DIRECTOR AUTO: Raheem Malik M.D., Ph.D For any questions, please call customer service at FREQUENCY:OTHER Resulting Agency Comment Specimen source: PD Fluid Denilson Holly MD LAB BLOOD ORDERABLES Performing Organization Address City/State/ZIP Code Phon e Number APS SPECTRA [facility] documented in this encounter Visit Diagnoses Not on filedocumented in this encounter
--- OUTSIDE RECORDS SUMMARY | 2022-08-15 11:26 | XMS_ITS | Encounter Summary ---
:1940 Author Organization [facility] Address [address] [place] [address] Care Team Providers Name Role Phone Unavailable Primary Care Provider Unavailable Encounter Details Date Type Department Care Team Description 07/02/2022 Treatment [facility] O f Denilson Quinones MD [address] [place], [place] [phone] (Wo rk) Social History Tobacco Use Types Packs/Day Years Used Date Smoking Tobacco: Never Assessed Sex Assigned at Date Recorded Not on file documented as of this encounter Miscellaneous Notes Dialysis Note - Denilson Holly MD - 07/02/2022 1:41 PM CDT Date: Jul 02, 2022 Patient Name: Speedy Hendricks : 1940 Chart #: [id number] Sex: M UNDERWATER ROBOTICIST: Denilson Holly MD LOCATION: [place] [phone] SCHEDULE: M-W-F 2nd Shift Chief Complaint: Acute kidney injury. The patient complains of the following - 07/02: He remains hesitant about access but ok if we schedule upper arm graft at [facility] after discussing again with him and both [...] requiring HD. Transferred from [place] rehab to [facility] here, hoping to [...] removed). Went to rehab, transferred back to [place] to [facility] for ongoing rehab closer to home. [facility] [place]. His daughter Raquel is ICU/MAINTENANCE APPRENTICE (ramone currently) and is very involved. Problem [...] - Tunneled AVG to be scheduled at [facility] Anemia: HEMOGLOBIN (G/DL) IN BLOOD g/dL 11.1 [...] as he does now agree to this. Denislon Holly MD [ Signed And locked electronically On 07/02/2022 at 01:45:40 PM ] Transcribed: Denilson Holly ( 07/02/2022 ) documented in this encounter Plan of Treatment Not on filedocumented as of this encounter Visit Diagnoses Not on filedocumented in this encounter
--- OUTSIDE RECORDS SUMMARY | 2022-08-15 11:26 | XMS_ITS | Encounter Summary ---
:1940 Author Organization [facility] Address [address] [place] [address] Care Team Providers Name Role Phone Unavailable Primary Care Provider Unavailable Encounter Details Date Type Department Care Team Description 07/02/2022 Orders Only [facility] O f Denilson Quinones MD [address] [place] [address] [place], [place] [phone] (Wo rk) Social History Tobacco Use [...] this encounter Results (ABNORMAL) Spectrae Chemistry (07/02/2022) [facility] gist Method Time Signature Sodium 140 [...] 07/03/2022 Unless otherwise specified, test(s) performed at: [facility], [address] [place] [address], [place] [address] ALUMINUM WELDER: Raheem Malik M.D., Ph.D For any questions, please call customer service at FREQUENCY:OTHER Resulting Agency Comment Specimen source: Serum Denilson Holly MD LAB BLOOD ORDERABLES Performing Organization Address City/[facility] Phon e Number [...] 07/03/2022 Unless otherwise specified, test(s) performed at: [facility], [address] [place] [address], [place] [address] ALUMINUM WELDER: Raheem Malik M.D., Ph.D For any questions, please call customer service at FREQUENCY:OTHER Resulting Agency Comment Specimen source: Blood Denilson Holly MD LAB BLOOD ORDERABLES Performing Organization Address City/[facility] Phon e Number APS SPECTRA [facility] documented in this encounter Visit Diagnoses Not on filedocumented in this encounter
--- OUTSIDE RECORDS SUMMARY | 2022-08-15 11:26 | XMS_ITS | Encounter Summary ---
:1940 Author Organization [facility] Address [address] [place] [address] Care Team Providers Name Role Phone Unavailable Primary Care Provider Unavailable Encounter Details Date Type Department Care Team Description 07/30/2022 Orders Only [facility] O f Denilson Quinones MD [phone] [place] [address] [place], [place] [phone] (Wo rk) Social History Tobacco Use [...] this encounter Results (ABNORMAL) Spectrae Chemistry (07/30/2022) [facility] gist Method Time Signature BUN 35 (H) [...] 07/31/2022 Unless otherwise specified, test(s) performed at: [facility], [address] [place] [address], [place] [address] MEMBERSHIP MANAGER: Raheem Malik M.D., Ph.D For any questions, please call customer service at FREQUENCY:OTHER Resulting Agency Comment Specimen source: Serum Denilson Holly MD LAB BLOOD ORDERABLES Performing Organization Address City/[facility] Phon e Number APS SPECTRA [...] 07/31/2022 Unless otherwise specified, test(s) performed at: [facility], [address] [place] [address], [place] [address] MEMBERSHIP MANAGER: Raheem Malik M.D., Ph.D For any questions, please call customer service at FREQUENCY:OTHER Resulting Agency Comment Specimen source: Blood Denilson Holly MD LAB BLOOD ORDERABLES Performing Organization Address City/[facility] Phon e Number APS SPECTRA [facility] documented in this encounter Visit Diagnoses Not on filedocumented in this encounter
--- OUTSIDE RECORDS SUMMARY | 2022-08-15 11:26 | XMS_ITS | Encounter Summary ---
:1940 Author Organization [facility] Address [address] [place] [address] Care Team Providers Name Role Phone Unavailable Primary Care Provider Unavailable Encounter Details Date Type Department Care Team Description 05/21/2022 Orders Only [facility] O f Denilson Quinones MD [phone] [place] [address] [place], [place] [phone] (Wo rk) Social History Tobacco Use [...] 05/27/2022 Unless otherwise specified, test(s) performed at: [facility], [address] [place] [address], [place] [address] SURFACE PLATE FINISHER: Raheem Malik M.D., Ph.D For any questions, [...] 24 mL/min APS SPECTRA 2020 [facility] Comment: [facility] has implemented the recommended eGFR calculation that [...] 05/27/2022 Unless otherwise specified, test(s) performed at: [facility], [facility] [place] [address] SURFACE PLATE FINISHER: Raheem Malik M.D., Ph.D For any questions, please call customer service at FREQUENCY:MONTHLY Resulting Agency Comment Specimen source: Serum Denilson Holly MD LAB [id number] NSOLICITED RESULTS Performing Organization Address City/State/[facility] Code Phon e Number APS [...] 05/22/2022 Unless otherwise specified, test(s) performed at: [facility], [address] [place] [address] [place] [address] SURFACE PLATE FINISHER: Raheem Malik M.D., Ph.D For any questions, [...] 05/22/2022 Unless otherwise specified, test(s) performed at: [facility], [address] [place] [address], [place] [address] SURFACE PLATE FINISHER: Raheem Malik M.D., Ph.D For any questions, [...] 05/22/2022 Unless otherwise specified, test(s) performed at: [facility], [address] [place] [address] gideon [facility] [place] [address] SURFACE PLATE FINISHER: Raheem Malik M.D., Ph.D For any questions, please call customer service at FREQUENCY:MONTHLY Resulting Agency Comment Specimen source: Blood Denilson Holly MD LAB BLOOD ORDERABLES Performing Organization Address City/State/ZIP Code Phon e Number APS SPECTRA [facility] documented in this encounter Visit Diagnoses Not on filedocumented in this encounter
--- OUTSIDE RECORDS SUMMARY | 2022-08-15 11:26 | XMS_ITS | Encounter Summary ---
:1940 Author Organization [facility] Address [address] [place] [address] Care Team Providers Name Role Phone Unavailable Primary Care Provider Unavailable Encounter Details Date Type Department Care Team Description 06/04/2022 Orders Only [facility] O f Denilson Quinones MD [phone] [place] [address] [place], [place] [phone] (Wo rk) Social History Tobacco Use [...] 06/05/2022 Unless otherwise specified, test(s) performed at: [facility], [address] [place] [address], [place] [address] INSURANCE LOSS ASSESSOR: Raheem Malik M.D., Ph.D For any questions, please call customer service at FREQUENCY:OTHER Resulting Agency Comment Specimen source: Serum Denilson Holly MD LAB BLOOD ORDERABLES Performing Organization Address City/[facility] Phon e Number APS SPECTRA [...] 06/05/2022 Unless otherwise specified, test(s) performed at: [facility] [employer], [address] [place] [address], [place] [address] INSURANCE LOSS ASSESSOR: Raheem Malik M.D., Ph.D For any questions, please call customer service at FREQUENCY:OTHER Resulting Agency Comment Specimen source: Blood Denilson Holly MD LAB BLOOD ORDERABLES Performing Organization Address City/[facility] Phon e Number APS SPECTRA [facility] documented in this encounter Visit Diagnoses Not on filedocumented in this encounter
--- OUTSIDE RECORDS SUMMARY | 2022-08-15 11:26 | XMS_ITS | Encounter Summary ---
:1940 Author Organization [facility] Address [address] [place] [address] Care Team Providers Name Role Phone Unavailable Primary Care Provider Unavailable Encounter Details Date Type Department Care Team Description 07/23/2022 Orders Only [facility] O f Denilson Quinones MD [phone] [place] [address] [place], [place] [phone] (Wo rk) Social History Tobacco Use [...] 07/24/2022 Unless otherwise specified, test(s) performed at: [facility], [address] [place] [address], [place] [address] FOOD AND BEVERAGE COORDINATOR: Raheem Malik M.D., Ph.D For any questions, please call customer service at FREQUENCY:MONTHLY Resulting Agency Comment Specimen source: Plasma Denilson Holly MD LAB BLOOD ORDERABLES Performing Organization Address City/State/ZIP Code Phon e Number APS SPECTRA [facility] (ABNORMAL) Spectrae Chemistry (07/23/2022) [facility] Method Time Signature BUN 43 (H) [...] 07/24/2022 Unless otherwise specified, test(s) performed at: [facility], [address] [place] [address], [place] [address] FOOD AND BEVERAGE COORDINATOR: Raheem Malik M.D., Ph.D For any questions, [...] 07/24/2022 Unless otherwise specified, test(s) performed at: [facility], [address] [place] [address], [place] [address] FOOD AND BEVERAGE COORDINATOR: Raheem Malik M.D., Ph.D For any questions, [...] for the general public, refer to MMWR [facility] 2004/Vol.54 (No. 16); -, and [...] 07/24/2022 Unless otherwise specified, test(s) performed at: [facility], [address] [place] [address], [place] [address] FOOD AND BEVERAGE COORDINATOR: Raheem Malik M.D., Ph.D For any questions, please call customer service at FREQUENCY:MONTHLY Resulting Agency Comment Specimen source: Plasma Denilson Holly MD LAB BLOOD ORDERABLES Performing Organization Address City/State/ZIP Code Phon e Number APS SPECTRA [facility] (ABNORMAL) HEMATOLOGY (07/23/2022) [facility] gist Method Time Signature WBC 5.78 [...] 07/24/2022 Unless otherwise specified, test(s) performed at: [facility], [address] [place] [address] [place] [address] FOOD AND BEVERAGE COORDINATOR: Raheem Malik M.D., Ph.D For any questions, please call customer service at FREQUENCY:MONTHLY Resulting Agency Comment Specimen source: Blood Denilson Holly MD LAB BLOOD ORDERABLES Performing Organization Address City/State/ZIP Code Phon e Number APS SPECTRA [facility] documented in this encounter Visit Diagnoses Not on filedocumented in this encounter
--- OUTSIDE RECORDS SUMMARY | 2022-08-15 11:26 | XMS_ITS | Clinical Summary ---
:1940 Author Organization [facility] Address [address] [place] [address] Care Team Providers Name Role Phone Unavailable [...] MD 05/19/2022 Orders Only NephDenilson Isidro MD from Last [...] Date/Time Associated Diagnosis Comme nts CHEMISTRY Routine 08/13/2022 Results for thi s procedure are i n the results section . HEMATOLOGY Routine 08/13/2022 Results for thi s [...] Results (ABNORMAL) HEMATOLOGY (08/13/2022)Only the most recent of13 resultswithin the time [...] 08/14/2022 Unless otherwise specified, test(s) performed at: [facility], [address] [place] [address], [place] [address] MACHINE MAINTENANCE SERVICER: Raheem Malik M.D., Ph.D For any questions, please call customer service at FREQUENCY:OTHER Resulting Agency Comment Specimen source: Blood Denilson Holly MD LAB BLOOD ORDERABLES Performing Organization Address City/State/ZIP Code Phon e Number APS SPECTRA [facility] (ABNORMAL) Spectrae Chemistry (08/13/2022)Only the most recent of17 results within the time period is included. Patholo gist Method Time Signature BUN 36 (H) 6 - 19 APS SPECTRA mg/dL [facility] Creatinine 3.43 (H) 0.60 - APS SPECTRA 1.30 mg/dL [facility] BUN/Creatinine 10.5 10.0 - APS SPECTRA Ratio 20.0 [facility] Sodium 140 136 - 145 APS SPECTRA mEq/L [facility] Potassium 3.9 3.5 - 5.1 APS SPECTRA mEq/L [facility] Chloride 99 96 - 108 APS SPECTRA mEq/L [facility] Bicarbonate 27 20 - 31 APS SPECTRA (CO2) mEq/L [facility] Comment: Please note change in reference range. Specimen (Source) Anatomical Collection Method Collection Time Re ceived Time Location / / Volume Laterality 08/13/2022 08/14/2022 8:23 AM CDT Narrative APS SPECTRA [facility] - 08/14/2022 Unless otherwise specified, test(s) performed at: [facility], [address] [place] [address], [place] [address] MACHINE MAINTENANCE SERVICER: Raheem Malik M.D., Ph.D For any questions, please call customer service at FREQUENCY:OTHER Resulting Agency Comment Specimen source: Serum Denilson Holly MD LAB BLOOD ORDERABLES Performing Organization Address City/[facility] Phon e Number APS [...] 07/24/2022 Unless otherwise specified, test(s) performed at: [facility], [address] [place] [address], [place] [address] MACHINE MAINTENANCE SERVICER: Raheem Malik M.D., Ph.D For any questions, please call customer service at FREQUENCY:MONTHLY Resulting Agency Comment Specimen source: Plasma Denilson Holly MD LAB BLOOD ORDERABLES Performing Organization Address City/[facility] Phon e Number APS [...] 07/24/2022 Unless otherwise specified, test(s) performed at: [facility], [address] [place] [address], [place] [address] MACHINE MAINTENANCE SERVICER: Raheem Malik M.D., Ph.D For any questions, [...] 06/14/2022 Unless otherwise specified, test(s) performed at: [facility], [facility] [place] [place] [address] MACHINE MAINTENANCE SERVICER: Raheem Malik M.D., Ph.D For any questions, please call customer service at FREQUENCY:OTHER Resulting Agency Comment Specimen source: Urine Denilson Holly MD LAB URINE ORDERABLES Performing Organization Address [facility] Phon e Number [facility] SL KSN PATIENT INFORMATION (06/13/2022)Only the most recent of6 resultswithin the time period is included. athologist [facility] Patient BSA 1.77 sq. M. [facility] SL KSN Comment: Normalized values are calculated using t he patient's actual BSA and normalized to the average BSA of 1.73m2. Specimen (Source) Anatomical Collection Method Collection Time Re ceived Time Location / / Volume Laterality 06/13/2022 06/14/2022 2:50 AM CDT Narrative [facility] SL [facility] - 06/14/2022 Unless otherwise specified, test(s) performed at: [facility], [address] [place] [address], [place] [address] MACHINE MAINTENANCE SERVICER: Raheem Malik M.D., Ph.D For any questions, please call customer service at FREQUENCY:OTHER Resulting Agency Comment Specimen source: PD Fluid Denilson Holly MD LAB BLOOD ORDERABLES Performing Organization Address [facility] e Number [facility] GFR (05/28/2022)Only the most recent of4 resultswithin the time period is included. athologist [facility] eGFR CKD-EPI CR 30 mL/min [facility] 2020 [facility] Comment: [facility] has implemented the recommended eGFR calculation that [...] 05/29/2022 Unless otherwise specified, test(s) performed at: [facility], [address] [place] [address], [place] [address] MACHINE MAINTENANCE SERVICER: Raheem Malik M.D., Ph.D For any questions, please call customer service at FREQUENCY:OTHER Resulting Agency Comment Specimen source: Serum Deinlson Holly MD LAB [id number] NSOLICITED RESULTS Performing Organization Address City/State/ZIP Code Phon e Number APS SPECTRA [facility] from Last 3 Months Insurance Payer Benefit Plan / Subscriber ID Effective Dates Phone Addre ss Type Group [place] [id number] 2016-Present [phone] [address] [id number] ([id number]) [place] [address]
--- OUTSIDE RECORDS SUMMARY | 2022-08-15 11:26 | XMS_ITS | Encounter Summary ---
:1940 Author Organization [facility] Address [address] [place] [address] Care Team Providers Name Role Phone Unavailable Primary Care Provider Unavailable Encounter Details Date Type Department Care Team Description 06/13/2022 Orders Only [facility] O f Denilson Quinones MD [address] [place] [address] [place], [place] [phone] (Wo rk) Social History Tobacco Use [...] URINE CLEARANCE (06/13/2022) [facility] Time Signature Urea Nitrogen, 177 [...] 06/14/2022 Unless otherwise specified, test(s) performed at: [facility], [address] [place] [address], [place] [address] ALARM SERVICE TECHNICIAN: Raheem Malik M.D., Ph.D For any questions, please call customer service at FREQUENCY:OTHER Resulting Agency Comment Specimen source: Urine Denilson Holly MD LAB URINE ORDERABLES Performing Organization Address City/[facility] Phon e Number APS SPECTRA [facility] (ABNORMAL) Spectrae Chemistry (06/13/2022) athologist Signature Creatinine 2.31 (H) 0.60 - 1.30 APS SPECTRA mg/dL [facility] Comment: Custom Exception Specimen (Source) Anatomical Collection Method Collection Time Re ceived Time Location / / Volume Laterality 06/13/2022 06/14/2022 2:50 AM CDT Resulting Agency Comment Specimen source: Serum Denilson Holly MD LAB BLOOD ORDERABLES Performing Organization Address [facility] Phon e Number APS [...] 06/14/2022 Unless otherwise specified, test(s) performed at: [facility], [address] [place] [address], [place] [address] ALARM SERVICE TECHNICIAN: Raheem Malik M.D., Ph.D For any questions, please call customer service at FREQUENCY:OTHER Resulting Agency Comment Specimen source: PD Fluid Denilson Holly MD LAB BLOOD ORDERABLES Performing Organization Address [facility] Phon e Number APS [...] 06/14/2022 Unless otherwise specified, test(s) performed at: [facility], [address] [place], [place] [address]ann [place] [address] ALARM SERVICE TECHNICIAN: Raheem Malik M.D., Ph.D For any questions, please call customer service at FREQUENCY:OTHER Resulting Agency Comment Specimen source: PD Fluid Denilson Holly MD LAB BLOOD ORDERABLES Performing Organization Address [facility] Phon e Number APS SPECTRA [facility] documented in this encounter Visit Diagnoses Not on filedocumented in this encounter
--- OUTSIDE RECORDS SUMMARY | 2022-08-15 11:26 | XMS_ITS | Encounter Summary ---
:1940 Author Organization [facility] Address [address] [place] [address] Care Team Providers Name Role Phone Unavailable Primary Care Provider Unavailable Encounter Details Date Type Department Care Team Description 07/16/2022 Orders Only [facility] O f Denilson Quinones MD [phone] [place] [address] [place], [place] [phone] (Wo rk) Social History Tobacco Use [...] 07/17/2022 Unless otherwise specified, test(s) performed at: [facility], [address] [place] [address], [place] [address] GUINEA PIG BREEDER: Raheem Malik M.D., Ph.D For any questions, please call customer service at FREQUENCY:OTHER Resulting Agency Comment Specimen source: Blood Denilson Holly MD LAB BLOOD ORDERABLES Performing Organization Address City/[facility] Code Phon e [...] 07/17/2022 Unless otherwise specified, test(s) performed at: [facility], [address] [place], [place] [address]ann [facility] [place] [address] GUINEA PIG BREEDER: Raheem Malik M.D., Ph.D For any questions, please call customer service at FREQUENCY:OTHER Resulting Agency Comment Specimen source: Serum Denilson Holly MD LAB BLOOD ORDERABLES Performing Organization Address City/[facility] Phon e Number APS SPECTRA [facility] documented in this encounter Visit Diagnoses Not on filedocumented in this encounter
--- OUTSIDE RECORDS SUMMARY | 2022-08-15 11:26 | XMS_ITS | Encounter Summary ---
:1940 Author Organization [facility] Address [address] [place] [address] Care Team Providers Name Role Phone Unavailable Primary Care Provider Unavailable Encounter Details Date Type Department Care Team Description 05/28/2022 Orders Only [facility] O f Denilson Quinones MD [phone] [place] [address] [place], [place] [phone] (Wo rk) Social History Tobacco Use [...] Performing Organization Address City/[facility] Code Phon e Number APS SPECTRA [facility] GFR (05/28/2022) P athologist Signature eGFR CKD-EPI CR 30 mL/min APS SPECTRA 2020 [facility] Comment: [employer] has implemented the recommended eGFR calculation [...] 05/29/2022 Unless otherwise specified, test(s) performed at: [employer] [address] [place] [address], [place] [address] POLICYHOLDER INFORMATION CLERK: Raheem Malik M.D., Ph.D For any questions, please call customer service at FREQUENCY:OTHER Resulting Agency Comment Specimen source: Serum Denilson Holly MD LAB [id number] NSOLICITED RESULTS Performing Organization Address City/[facility] Code Phon e Number APS [...] 05/29/2022 Unless otherwise specified, test(s) performed at: [employer] [address] [place] [address], [place] [address] POLICYHOLDER INFORMATION CLERK: Raheem Malik M.D., Ph.D For any questions, please call customer service at FREQUENCY:OTHER Resulting Agency Comment Specimen source: Blood Denilson Holly MD LAB BLOOD ORDERABLES Performing Organization Address City/State/ZIP Code Phon e Number APS SPECTRA [facility] documented in this encounter Visit Diagnoses Not on filedocumented in this encounter
--- OUTSIDE RECORDS SUMMARY | 2022-08-15 11:26 | XMS_ITS | Encounter Summary ---
:1940 Author Organization [facility] Address [address] [place] [address] Care Team Providers Name Role Phone Unavailable Primary Care Provider Unavailable Encounter Details Date Type Department Care Team Description 08/13/2022 Orders Only [facility] O f Denilson Quinones MD [address] [place] [address] [place], [place] [phone] (Wo rk) Social History Tobacco Use [...] in the resu lts section. CHEMISTRY Routine 08/13/2022 Results for thi s procedure are in the resu lts section. documented in this encounter Results (ABNORMAL) Spectrae Chemistry (08/13/2022) [facility] gist Method Time Signature BUN 36 (H) [...] 08/14/2022 Unless otherwise specified, test(s) performed at: [facility], [address] [place] [address], [place] [address] SEASONING MIXER: Raheem Malik M.D., Ph.D For any questions, please call customer service at FREQUENCY:OTHER Resulting Agency Comment Specimen source: Serum Denilson Holly MD LAB BLOOD ORDERABLES Performing Organization Address City/[facility] Phon e Number APS SPECTRA [facility] (ABNORMAL) HEMATOLOGY (08/13/2022) Analysis Performed At [facility] [...] 08/14/2022 Unless otherwise specified, test(s) performed at: [facility], [address] [place] [address], [place] [address] SEASONING MIXER: Raheem Malik M.D., Ph.D For any questions, please call customer service at FREQUENCY:OTHER Resulting Agency Comment Specimen source: Blood Denilson Holly MD LAB BLOOD ORDERABLES Performing Organization Address City/[facility] Phon e Number APS SPECTRA [facility] documented in this encounter Visit Diagnoses Not on filedocumented in this encounter
--- OUTSIDE RECORDS SUMMARY | 2022-08-15 11:26 | XMS_ITS | Encounter Summary ---
:1940 Author Organization [facility] Address [address] [place] [address] Care Team Providers Name Role Phone Unavailable Primary Care Provider Unavailable Encounter Details Date Type Department Care Team Description 08/06/2022 Orders Only [facility] O f Denilson Quinones MD [address] [place] [address] [place], [place] [phone] (Wo rk) Social History Tobacco Use [...] this encounter Results (ABNORMAL) Spectrae Chemistry (08/06/2022) [facility] gist Method Time Signature BUN 40 [...] 08/07/2022 Unless otherwise specified, test(s) performed at: [facility], [address] [place] [address], [place] [address] JURY CONSULTANT: Raheem Malik M.D., Ph.D For any questions, please call customer service at FREQUENCY:OTHER Resulting Agency Comment Specimen source: Serum Denilson Holly MD LAB BLOOD ORDERABLES Performing Organization Address City/[facility] Phon e Number APS SPECTRA [facility] [...] 08/07/2022 Unless otherwise specified, test(s) performed at: [facility], [address] [place] [address], [place] [address] JURY CONSULTANT: Raheem Malik M.D., Ph.D For any questions, please call customer service at FREQUENCY:OTHER Resulting Agency Comment Specimen source: Blood Denilson Holly MD LAB BLOOD ORDERABLES Performing Organization Address City/[facility] Phon e Number APS SPECTRA [facility] documented in this encounter Visit Diagnoses Not on filedocumented in this encounter
--- OUTSIDE RECORDS SUMMARY | 2022-08-15 11:26 | XMS_ITS | Encounter Summary ---
:1940 Author Organization [facility] Address [address] [place] [address] Care Team Providers Name Role Phone Unavailable Primary Care Provider Unavailable Encounter Details Date Type Department Care Team Description 06/18/2022 Orders Only [facility] f Denilson Quinones MD [address] [place] [address] [place], [place] [phone] (Wo rk) Social History Tobacco Use [...] 06/19/2022 Unless otherwise specified, test(s) performed at: [facility], [address] [place] [address], [place] [address] SEASONAL DRIVER: Raheem Malik M.D., Ph.D For any questions, [...] 06/19/2022 Unless otherwise specified, test(s) performed at: [facility], [address] [place], [place] [address]ann [place] [address] SEASONAL DRIVER: Raheem Malik M.D., Ph.D For any questions, please call customer service at FREQUENCY:OTHER Resulting Agency Comment Specimen source: Serum Denilson Holly MD LAB BLOOD ORDERABLES Performing Organization Address City/State/[facility] Code Phon e Number APS SPECTRA [facility] documented in this encounter Visit Diagnoses Not on filedocumented in this encounter
--- OUTSIDE RECORDS SUMMARY | 2022-08-15 11:27 | XMS_ITS | Encounter Summary ---
:1940 Author Organization [facility] Address [address] [place] [address] Care Team Providers Name Role Phone Unavailable Primary Care Provider Unavailable Encounter Details Date Type Department Care Team Description 05/14/2022 Orders Only [facility] O f Denilson Quinones MD [phone] [place] [address] [place], [place] [phone] (Wo rk) Social History Tobacco Use [...] 05/15/2022 Unless otherwise specified, test(s) performed at: [facility], [address] [place] [address] [place] [address] RATE INSERTER: Raheem Malik M.D., Ph.D For any questions, [...] MD LAB BLOOD ORDERABLES Performing Organization Address City/[facility]/ZIP Code Phon e Number APS SPECTRA [facility] GFR (05/14/2022) P athologist Signature eGFR CKD-EPI CR 24 mL/min APS SPECTRA 2020 [facility] Comment: [facility] has implemented the recommended eGFR calculation that [...] 05/15/2022 Unless otherwise specified, test(s) performed at: [facility], [address] [place] [address] [place] [address] RATE INSERTER: Raheem Malik M.D., Ph.D For any questions, please call customer service at FREQUENCY:OTHER Resulting Agency Comment Specimen source: Serum Denilson Holly MD LAB [id number] NSOLICITED RESULTS Performing Organization Address City/State/ZIP Code Phon e Number APS SPECTRA [facility] documented in this encounter Visit Diagnoses Not on filedocumented in this encounter
--- OUTSIDE RECORDS SUMMARY | 2022-08-15 11:27 | XMS_ITS | Encounter Summary ---
:1940 Author Organization [place] Address [address] [place] [address]. [place] [address] Care Team Providers Name Role Phone Clinic, [facility] Primary Care Provider [phone] Reason for Visit Reason Onset Date Comments Clinic Care Coordination - Follow-up 11/15/2019 Encounter Details Date Type Department Care Team Description 11/15/2019 Telephone [facility] Ramiro Loco Cli [facility] Félix juraez MD Coordination - [address] Follow-up [address] [place] [address] [place] [address] (Wo rk) Social History [...] 9:12 AM CST Order entered. SHASTA Winkler, RN-[facility] [employer] Telephone Encounter - Ro Taylor RN - 11/25/2019 2:34 PM CST Pt called back, left vm to discuss lab request (creat/gfr). I called pt back, pt reports labs completed on 11/24/19 at [facility]. Per [facility] Creat 1.5 and GFR 55 on 11/24/19. I explained to pt he does not need another lab draw and we will work with these lab results. Pt notes understanding. Routing to Dr. Loco's nurse Leatha for placement of imaging order (to be done in 6 months) per Dr. Loco's request. SHASTA Sotomayor, JOSE [facility] [place] [employer] Telephone Encounter - Ro Taylor RN - 11/25/2019 1:49 PM CST Pt called back , left vm to discuss labs ordered by Dr. Loco. SHASTA Sotomayor, JOSE [facility] [employer] Telephone Encounter - Ro Taylor RN - 11/15/2019 2:41 PM CST Creatinine check/lab order placed in [facility]. I called pt, left vm explaining he can get this checked at his convenience, upon results we will then order his follow up imaging and OV per Dr. Loco and to call if any questions. SHASTA Sotomayor, JOSE [facility] [place] [employer] Telephone Encounter - Ro Taylor RN - [...] or CT of chest/abd/pelvis. SHASTA Sotomayor, RN [facility] [employer] documented in this encounter Plan of Treatment [...] as of this encounter Care Teams Associate Professor Of Library Media Relationship Specialty Start Date End Date [facility] [place] PCP - General 05/12/[address] [place] [address] documented as of this encounter
--- OUTSIDE RECORDS SUMMARY | 2022-08-15 11:27 | XMS_ITS | Encounter Summary ---
:1940 Author Organization [facility] Address [address] [place] [address] Care Team Providers Name Role Phone Unavailable Primary Care Provider Unavailable Encounter Details Date Type Department Care Team Description 04/16/2022 Office Communication [facility] [place] MD [address] [address] [place] [phone] Social History Tobacco [...]
--- OUTSIDE RECORDS SUMMARY | 2022-08-15 11:27 | XMS_ITS | Encounter Summary ---
:1940 Author Organization [place] Address [address] [place] [address] Care Team Providers Name Role Phone Kehinde Portillo Primary Care Provider [phone] Encounter Details Date Type Department Care Team [...] as of this encounter Care Teams Regional Geodetic Advisor Relationship Specialty Start [facility] - [facility] [place] [address] documented as of this encounter
--- OUTSIDE RECORDS SUMMARY | 2022-08-15 11:27 | XMS_ITS | Encounter Summary ---
:1940 Author Organization [place] Address [address] [place] [place] [address] Care Team Providers Name Role Phone [facility], [facility] Primary Care Provider [phone] Reason for Visit Reason Comments RECHECK *PREV Dr Lewis, Dr Brown & Dr Loco Pt - CTA done 08/08/21- History of thoracoabdominal aortic aneu rysm; TEVAR 11/05/18; 6 mo f/u to 11/09/[address] Loco *jj Pt is sti ll having back pain *LMB 08/19/21 - R/S from 08/29/21 *B 08/28/21 Encounter Details Date Type Department Care Team Description 09/23/2021 Office Visit [facility] Gallito Gonzalez [facility] [facility] MD Eliel aneurysm (TAAA) without Tram [address] rupture (H) (Primary Dx) [address] [place] [address] [place] [phone] Social History Tobacco Use Types Packs/Day Years [...] with No / Unsure 09/23/2021 10:26 AM BATTERY STACKER someone who was confirmed or suspected to have Coronavirus / COVID-19? documented as of this encounter Last Filed Vital Signs Vital Sign Reading Time Taken Comments Blood Pressure 161/78 09/23/2021 10:34 AM BATTERY STACKER Pulse 57 09/23/2021 10:34 AM BATTERY STACKER Temperature - - Respiratory Rate 16 09/23/2021 10:34 AM BATTERY STACKER Oxygen Saturation 99% 09/23/2021 10:34 AM BATTERY STACKER Inhaled Oxygen Concentration - - Weight 79.4 kg (175 lb) 09/23/2021 10:34 AM BATTERY STACKER Height 167.6 cm (5' 6) 09/23/2021 10:34 AM BATTERY STACKER Body Mass Index 28.25 09/23/2021 10:34 AM BATTERY STACKER documented in this encounter Progress Notes Von Landeros CMA - 09/23/2021 10:30 AM CST [facility] Patient is here for a [...] services and agency name: Kelsey Landeros CMA ERY STACKER Gallito Gonzalez MD - 09/23/2021 10:30 AM CST Mr. Hendricks is a 81-year-old male who is well-known to the [facility] with and as such has been previously [...] I discussed the case with Dr. Orosco. 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
--- OUTSIDE RECORDS SUMMARY | 2022-08-15 11:27 | XMS_ITS | Encounter Summary ---
:1940 Author Organization [place] Address [address] [place] [address] Care Team Providers Name Role Phone [facility] Primary Care Provider [phone] Reason for Visit Diagnostic Imaging CT Scan (Routine) - Closed Specialty Diagnoses / Procedures Referred By Contact Refer red To Contact Diagnoses Thoracic aortic aneurysm without rupture Abdominal aortic aneurysm (AAA) without rupture Ramiro Loco MD Procedures CT Chest Abdomen Pelvis w/o Contrast CTA Chest Abdomen Pelvis w Contrast [address] [place] [address] Referral ID Status Reason Start Date Expiration Date Visits Requ ested Visits Authorized [id number] Closed 11/29/2019 11/28/2020 1 1 Encounter Details Date Type Department Care Team Description 08/08/2021 Hospital Encounter [facility] Ramiro Loco oracic aortic aneurysm without rupture (H); [facility] Gisela Garcia MD Abdominal aortic aneurysm (AAA) without rupture (H) [address] [address] [place] [address] [phone] Social History Tobacco Use Types Packs/Day Years [...] CT CHEST ABDOMEN PELVIS W/O CONTRAST LOCATION: [facility] DATE/TIME: 08/08/2021 4:20 PM INDICATION: history [...] CHEST ABDOMEN PELVIS W/O CONTRA ST LOCATION: [facility] DATE/TIME: 08/08/2021 4:20 PM INDICATION: history [...] City/State/ZIP Code Phon e Number [place] [address] Care Lab [address] floor, [...] as of this encounter Care Teams Cement Mason Helper Relationship Specialty Start Date End Date [facility] PCP - General 05/12/[address] [place] [address] documented as of this encounter
--- OUTSIDE RECORDS SUMMARY | 2022-08-15 11:27 | XMS_ITS | Encounter Summary ---
:1940 Author Organization [place] Address [address] [place] [address] Care Team Providers Name Role Phone [facility], [facility] Primary Care Provider [phone] Reason for Visit Reason Onset Date Comments Forms 06/30/2019 Encounter Details Date Type Department Care Team Description 06/30/[address] [facility] Jon White, Forms [phone] [place] [address] (Wo rk) Social History Tobacco [...] back and records faxed to them at [phone].Desire De Oliveira RN Telephone Encounter - Mallory Montgomery RN - 06/30/2019 1:04 PM CDT Flor over at [facility] called requesting patient records from his [...] frustrated by the situation. Faxed form to [facility]. Flor voiced understanding. JOSE Lockwood-BSN-[facility] [phone] documented in this encounter Plan of Treatment Not on filedocumented as of this encounter Visit Diagnoses Not on filedocumented in this encounter Additional Health Concerns Infection Onset Date Last Indicated Resolved Time MRSAComment: Positive 02/17/11 and 09/22/12 11/05/2018 019 Negatives 05/03/14 (HE), 12/01/14 (HE) documented as of this encounter Care Teams Contract Agent Relationship Specialty Start Date End Date [facility] PCP - General 05/12/[address] [place] [address] documented as of this encounter
--- OUTSIDE RECORDS SUMMARY | 2022-08-15 11:27 | XMS_ITS | Encounter Summary ---
:1940 Author Organization [place] Address [address] [place] [address] Care Team Providers Name Role Phone Clinic, [facility] Primary Care Provider [phone] Reason for Visit Reason Comments RECHECK 6 month follow up visit. 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); [facility] Ramiro Loco MD [address] [place] [id number] CKD (chronic kidney disease) stage 3, GF R 30-59 ml/min (H) [address] [place] [address] Social History Tobacco Use Types [...] Comments Blood Pressure 128/76 11/09/2019 1:19 PM SENIOR PAYROLL MANAGER Pulse 59 11/09/2019 1:19 PM SENIOR PAYROLL MANAGER Temperature - - Respiratory Rate 16 11/09/2019 1:19 PM SENIOR PAYROLL MANAGER Oxygen Saturation 98% 11/09/2019 1:19 PM SENIOR PAYROLL MANAGER Inhaled Oxygen Concentration - - Weight 82.6 kg (182 lb) 11/09/2019 1:19 PM SENIOR PAYROLL MANAGER Height 167.6 cm (5' 6) 11/09/2019 1:19 PM SENIOR PAYROLL MANAGER Body Mass Index 29.38 11/09/2019 1:19 PM SENIOR PAYROLL MANAGER documented in this encounter Progress Notes Ramiro [...] Hendricks spent the last several months in [place]. Dr. Brown has left our practice. Mr. Hendricks presents to my vascular surgical office today to review a noncontrasted CT scan of the chest, abdomen, and pelvis and to once again discuss possible EVAR. He was accompanied by his daughter. He did have a fall while vacationing in [place] with multiple resultant rib fractures. Apart from [...] repair. I would absolutely refer him to [facility] to discuss those surgical options. Presently [...] in complete agreement with our plan. Total dyfy-jr-tnuu time was 40 minutes, greater than 50% spent providing counseling and education. David Loco MD OR PAYROLL MANAGER documented in this encounter Plan of [...] as of this encounter Care Teams Human Resources Associate Relationship Specialty Start Date End Date [facility] PCP - General 05/12/[address] [place] [address] documented as of this encounter
--- OUTSIDE RECORDS SUMMARY | 2022-08-15 11:27 | XMS_ITS | Encounter Summary ---
:1940 Author Organization [facility] Address [address] [place] [address] Care Team Providers Name Role Phone Unavailable Primary Care Provider Unavailable Encounter Details Date Type Department Care Team Description 04/16/2022 Orders Only [facility] O f Denilson Quinones MD [address] [place] [address] [place], [place] [phone] (Wo rk) Social History Tobacco Use [...] and its performa nce characteristics determined by [facility]. It has not been cleared or approved [...] 04/17/2022 Unless otherwise specified, test(s) performed at: [facility], [address] [place] [address] APPLICATIONS SALES REPRESENTATIVE: Henok Correa M.D. For any questions, please call customer service at FREQUENCY:MONTHLY Resulting Agency Comment Specimen source: Serum Denilson Holly MD LAB BLOOD ORDERABLES Performing Organization Address City/[facility] Code Phon e [...] above test result was obtained using Siemens APU Solutionsaur XP chemiluminescent method. Results obtaine d with different assay methods or kits cannot be used interchangeably. Specimen (Source) Anatomical Collection Method Collection Time Re ceived Time Location / / Volume Laterality 04/16/2022 04/17/2022 9:14 AM CDT Narrative APS SPECTRA [facility] - 04/17/2022 Unless otherwise specified, test(s) performed at: [facility], [address] [place] [address] APPLICATIONS SALES REPRESENTATIVE: Henok Correa M.D. For any questions, please call customer service at FREQUENCY:MONTHLY Resulting Agency Comment Specimen source: Serum Denilson Holly MD LAB BLOOD ORDERABLES Performing Organization Address City/[facility] Code Phon e Number APS SPECTRA [facility] (ABNORMAL) Spectrae Chemistry (04/16/2022) P athologist Signature PTH 108 (H) 16 - 80 APS SPECTRA pg/mL [facility] Specimen (Source) Anatomical Collection Method Collection Time Re ceived Time Location / / Volume Laterality 04/16/2022 04/17/2022 9:16 AM CDT Narrative APS SPECTRA [facility] - 04/17/2022 Unless otherwise specified, test(s) performed at: [facility], [address] [place] [address] APPLICATIONS SALES REPRESENTATIVE: Henok Correa M.D. For any questions, please call customer service at FREQUENCY:MONTHLY Resulting Agency Comment Specimen source: Plasma Denilson Holly MD LAB BLOOD ORDERABLES Performing Organization Address City/[facility] Code Phon e [...] LAB BLOOD ORDERABLES Performing Organization Address City/[facility]/ZIP Code Phon e Number APS SPECTRA [facility] POST CHEMISTRY (04/16/2022) P athologist Signature BUN Post 18 6 - 19 APS SPECTRA Dialysis mg/dL [facility] Specimen (Source) Anatomical Collection Method Collection Time Re ceived Time Location / / Volume Laterality 04/16/2022 04/17/2022 9:08 AM CDT Narrative APS SPECTRA [facility] - 04/17/2022 Unless otherwise specified, test(s) performed at: [facility], [address] [place] [address] APPLICATIONS SALES REPRESENTATIVE: Henok Correa M.D. For any questions, please [...] 04/17/2022 Unless otherwise specified, test(s) performed at: [facility], [address] [place], [place] [id number] APPLICATIONS SALES REPRESENTATIVE: Henok Correa M.D. For any questions, please call customer service at FREQUENCY:MONTHLY Resulting Agency Comment Specimen source: Serum Denilson Holly MD LAB BLOOD ORDERABLES Performing Organization Address City/State/ZIP Code Phon e Number APS SPECTRA [facility] GFR (04/16/2022) P athologist Signature eGFR CKD-EPI CR 28 mL/min APS SPECTRA 2020 [facility] Comment: [facility] has implemented the recommended eGFR calculation that [...] 04/17/2022 Unless otherwise specified, test(s) performed at: [facility], [address] [place] [address] APPLICATIONS SALES REPRESENTATIVE: Henok Correa M.D. For any questions, please call customer service at FREQUENCY:MONTHLY Resulting Agency Comment Specimen source: Serum Denilson Holly MD LAB [id number] NSOLICITED RESULTS Performing Organization Address City/State/ZIP Code Phon e Number APS SPECTRA [facility] (ABNORMAL) HEMATOLOGY (04/16/2022) [facility] gist Method Time Signature WBC 7.73 [...] 04/17/2022 Unless otherwise specified, test(s) performed at: [facility], [address] [place] [address] APPLICATIONS SALES REPRESENTATIVE: Henok Correa M.D. For any questions, please call customer service at FREQUENCY:MONTHLY Resulting Agency Comment Specimen source: Blood Denilson Holly MD LAB BLOOD ORDERABLES Performing Organization Address City/State/ZIP Code Phon e Number APS SPECTRA [facility] documented in this encounter Visit Diagnoses Not on filedocumented in this encounter
--- OUTSIDE RECORDS SUMMARY | 2022-08-15 11:27 | XMS_ITS | Encounter Summary ---
:1940 Author Organization [place] Address [address] [place] [address] Care Team Providers Name Role Phone Kehinde Portillo Primary Care Provider [phone] Encounter Details Date Type Department Care Team [...] as of this encounter Care Teams Medical Chemist Relationship Specialty Start Date End Date [facility], Kehidne Santos PCP - General 05/12/[address] [place] [address] documented as of this encounter
--- OUTSIDE RECORDS SUMMARY | 2022-08-15 11:27 | XMS_ITS | Encounter Summary ---
:1940 Author Organization [place] Address [address] [place] [address]. [place] [address] Care Team Providers Name Role Phone Clinic, [facility] Primary Care Provider [phone] Reason for Visit Reason Comments Skin Check FSE Encounter Details Date Type Department Care Team Description 06/02/2019 Office Visit [facility] Jon White of skin cancer (Primary Dx); Clinic [place] MD Aubrey Lentigo; [facility] [address] Seborrheic keratosis; [address] [address] Angioma of skin; [place], [place] [phone] Dermal nevus ; [phone] (Work) Basal cell carcinoma (BCC) of anterior c hest; [phone] Basal wilton l carcinoma (BCC) of sideburn [...] CDT Wound Care Instructions FOR SUPERFICIAL WOUNDS [facility] [phone] [facility] [phone] AFTER 24 HOURS YOU SHOULD REMOVE THE [...] file Gets together: Not on file Attends buddhism service: Not on file Active member of club or organization: Not on file Attends meetings of clubs or organizations: Not on file Relationship status: Not on file ??? Intimate partner violence: Fear of current or ex partner: Not on file Emotionally abused: Not on file Physically abused: Not on file Forced sexual activity: Not on file Other Topics Concern ??? Parent/sibling w/ CABG, [place] or angioplasty before 65F 55M? Not Asked [...] 87.5 kg (193 lb). . Ly.JOSE Montgomery-BSN-PHN [facility] [phone] documented in this encounter Plan of Treatment [...] documented as of this encounter Care Teams Fork Lift Mechanic Relationship Specialty Start Date End Date Kehinde Portillofield PCP - General 05/12/[address] [place] [address] documented as of this encounter
--- OUTSIDE RECORDS SUMMARY | 2022-08-15 11:27 | XMS_ITS | Encounter Summary ---
:1940 Author Organization [facility] Address [address] [place] [address] Care Team Providers Name Role Phone Clinic, [facility] Primary Care Provider [phone] Reason for Visit Reason Onset Date Comments Path Results 06/02/2019 Encounter Details Date Type Department Care Team Description 06/02/2019 Telephone [facility] Jon White, Path Results [phone] [place] [address] (Wo rk) Social History Tobacco [...] : MOHS Surgery with Dr. Jon White, Pharmacovigilance Scientist to remove skin cancers. Thank you for allowing me to be involved in your health care and for choosing [facility]. If you have any questions or concerns please feel free to contact me at . Sincerely, Dr. Fernando White Telephone Encounter - Mallory Montgomery RN - 06/22/2019 9:06 AM CDT Called and LM for patient to call back in regards to scheduling x3 mohs appointments. LENA Lockwood [facility] [phone] Telephone Encounter - Mallory Montgomery RN - 06/17/2019 11:11 AM CDT Called and LM for patient to call back in regards to scheduling x3 mohs appointments. LENA Lockwood [facility] [phone] Telephone Encounter - Mallory Montgomery RN - 06/14/2019 10:15 AM CDT Called and LM for patient to call back in regards to scheduling x3 mohs appointments. LENA Lockwood [facility] [phone] Telephone Encounter - Mallory Montgomery RN - 06/13/2019 1:05 PM CDT Called and LM for patient to call back in regards to scheduling x3 mohs appointments. [facility] [phone] Telephone Encounter - Mallory Montgomery RN - 06/06/2019 4:22 PM CDT Called and spoke to patient. Educated patient on biopsy results- BCC x3. Educated patient on BCC andmohs. Patient stated his is currently in the hospital so he cannot schedule any appointments atthis time. Patient asked that I call him early next week. Patient voiced understanding. ERMA LockwoodLaxmi [facility] [phone] Telephone Encounter - Ryan Grady - 06/06/2019 3:44 PM CDT Please call patient on cell at [phone]. Telephone Encounter - Mallory Montgomery RN - 06/06/2019 8:40 AM CDT Called and LM for patient to call back in regards to biopsy results x3. L.LENA Montgomery [facility] [phone] Telephone Encounter - Mallory Montgomery RN - 06/03/2019 3:44 PM CDT Called and LM for patient to call back in regards to biopsy results x3. L.ERMA MontgomeryLaxmi [facility] [phone] Telephone Encounter - Mallory Montgomery RN - [...] documented as of this encounter Care Teams Clinical Sales Consultant Relationship Specialty Start Date End Date [facility] PCP - General 05/12/[address] [place] [address] documented as of this encounter
--- OUTSIDE RECORDS SUMMARY | 2022-08-15 11:27 | XMS_ITS | Encounter Summary ---
:1940 Author Organization [facility] Address [address] [place] [address] Care Team Providers Name Role Phone Unavailable Primary Care Provider Unavailable Encounter Details Date Type Department Care Team Description 04/23/2022 Orders Only [facility] Denilson Quinones MD [address] [place] [address] [place], [place] [phone] (Wo rk) Social History Tobacco Use [...] and its performa nce characteristics determined by [facility]. It has not been cleared or approved by the FDA. The laboratory is regulated under CLIA a s qualified to perform high complexity testing. This test is used fo r clinical purposes. It should not be regarded as investigational or fo r research. Test performed at [facility], [address] [place] [address]. Telephone . Medical Direct or: Henok Correa MD. Specimen (Source) Anatomical Collection Method Collection Time Re ceived Time Location / / Volume Laterality 04/23/2022 04/25/2022 7:04 PM CDT Narrative [facility] - 04/27/2022 Unless otherwise specified, test(s) performed at: [facility], [address] [place] [address], [place] [address] BLENDING TANK HELPER: Raheem Malik M.D., Ph.D For any [...] for the general public, refer to MMWR [facility] 2004/Vol.54 (No. 16); -, and [...] 04/26/2022 Unless otherwise specified, test(s) performed at: [facility], [address] [place] [address], [place] [address] BLENDING TANK HELPER: Raheem Malik M.D., Ph.D For any [...] 04/25/2022 Unless otherwise specified, test(s) performed at: [facility], [address] [place] [address], [place] [address] BLENDING TANK HELPER: Raheem Malik M.D., Ph.D For any [...] 04/25/2022 Unless otherwise specified, test(s) performed at: [facility], [address] [place] [address] [place] [address] BLENDING TANK HELPER: Raheem Malik M.D., Ph.D For any [...] 04/25/2022 Unless otherwise specified, test(s) performed at: [facility], [address] [place] [address] gideon [place] [address] BLENDING TANK HELPER: Raheem Malik M.D., Ph.D For any questions, please call customer service at FREQUENCY:MONTHLY Resulting Agency Comment Specimen source: Serum Denilson Holly MD LAB BLOOD ORDERABLES Performing Organization Address City/State/ZIP Code Phon e Number [facility] documented in this encounter Visit Diagnoses Not on filedocumented in this encounter
--- OUTSIDE RECORDS SUMMARY | 2022-08-15 11:27 | XMS_ITS | Encounter Summary ---
:1940 Author Organization [facility] Address [address] [place] [address] Care Team Providers Name Role Phone Clinic, [facility] Primary Care Provider [phone] Reason for Visit Reason Onset Date Comments Clinic Care Coordination - Initial 05/17/2019 CT sc an Encounter Details Date Type Department Care Team Description 05/17/2019 Telephone [facility] Car e Coordination Vascular Clinic Félix Jay MD - Initial (CT scan) [address] [place] [address] [place] [id number] Social History Tobacco Use Types Packs/Day Years [...] documented as of this encounter Care Teams Scrap Drop Operator Relationship Specialty Start Date End Date [facility] PCP - General 05/12/[address] [place] [address] documented as of this encounter
--- OUTSIDE RECORDS SUMMARY | 2022-08-15 11:27 | XMS_ITS | Clinical Summary ---
:1940 Author Organization [facility] Address [address] [place] [address] Care Team Providers Name Role Phone Clinic, [facility] Primary Care Provider [phone] Gallito Gonzalez MD Unavailable Allergies Active Allergy [...] Comments Blood Pressure 161/78 09/23/2021 10:34 AM SINGLE RESOURCE BOSS Pulse 57 09/23/2021 10:34 AM SINGLE RESOURCE BOSS Temperature 36.6 ??C (97.9 ??F) 11/09/2018 7:31 AM SINGLE RESOURCE BOSS Respiratory Rate 16 09/23/2021 10:34 AM SINGLE RESOURCE BOSS Oxygen Saturation 99% 09/23/2021 10:34 AM SINGLE RESOURCE BOSS Inhaled Oxygen Concentration - - Weight 79.4 kg (175 lb) 09/23/2021 10:34 AM SINGLE RESOURCE BOSS Height 167.6 cm (5' 6) 09/23/2021 10:34 AM SINGLE RESOURCE BOSS Body Mass Index 28.25 09/23/2021 10:34 AM SINGLE RESOURCE BOSS Plan of Treatment Health Maintenance Due Date [...] this topic Medical Devices Implanted Type Area Fishing Guide Device Shelf Model / Identifier Expiration Serial / Date Lot Graft Master Matrix 10cc [id number] Bone/Tissue N/A: Back [employer] 04/17/2017 [id number] / Implanted: Qty: 1 on 11/29/2014 /Biologic / [id number] Medtronic Valiant Navion Thoracic Graft System (37mm X 37mm X 223mm X 20fr.) Graft N/A: Aorta [employer] 07/25/2020 [id number] / Implanted: Qty: 1 on 11/05/2018 by Juna Delcid MD at [facility] [id number] / Alessio Precut Contoured 70x5.5mm Metallic N/A: Back [employer] [id number] / Implanted: Qty: 2 on 11/29/2014 Hardware/An / chor NA Cervical Rods/Screws Angio-Seal Vip Vascular Closure Device Right: 08/18/2019 [id number] / Implanted: Qty: 1 on 11/05/2018 by Juan Delcid MD at [facility] Arterial / [id number] Description: Perclose Device sutured int o the right common femoral artery. Explanted Type Area Fishing Guide Device Shelf Model / Identifier Expiration Date Ser ial / Lot Pedicle Screws Metallic And Rods Hardware/Anch or Additional Health Concerns Infection Onset Date Last Indicated MRSAComment: Positive 02/17/11 and 09/22/12 11/05/2018 11/05/2018 Negatives 05/03/14 (HE), 12/01/14 (HE) Insurance Payer Benefit Plan / Subscriber ID Effective Phone Address T ype Group Dates MEDICARE MEDICARE FOR HB [id number] 2012-Prese [phone] ATTN CLAIMS Medicare SUPPLEMENT nt 40 [address] [place] [address] BCBS BCBS [place] [id number] 2012-Prese [phone] [address] [address] PPO BLUE nt 00 [place] [address] Advance Directives For more information, please contact: [phone] Latest Code Status on File Code Status Date Activated Date Inactivated Comments Full Code 11/15/2017 2:04 AM 11/15/2017 2:27 PM Code Status History Code Status Date Activated Date Inactivated Comments Full Code 05/12/2017 1:29 PM 11/15/2017 2:04 AM Full Code 05/05/2017 5:50 PM 05/12/2017 1:29 PM Care Teams Tip Tester Relationship Specialty Start Date End Date Clinic, [facility] PCP - General 05/12/17 [address] [place] [address] Gallito Gonzalez MD Assigned Heart and Vascular 09/29/21 [address] Provider [place] [address]
--- OUTSIDE RECORDS SUMMARY | 2022-08-15 11:27 | XMS_ITS | Encounter Summary ---
:1940 Author Organization [facility] Address [address] [place] [address] Care Team Providers Name Role Phone Kehinde Portillo Primary Care Provider [phone] Encounter Details Date Type Department Care Team [...] documented as of this encounter Care Teams Solder Making Laborer Relationship Specialty Start Date End Date [facility] - General 05/12/[address] [place] [address] documented as of this encounter
--- OUTSIDE RECORDS SUMMARY | 2022-08-15 11:27 | XMS_ITS | Encounter Summary ---
:1940 Author Organization [facility] Address [address] [place] [address] Care Team Providers Name Role Phone [facility] Primary Care Provider [phone] Reason for Visit Reason Onset Date Comments Pain 08/08/2021 Encounter Details Date Type Department Care Team Description 08/08/2021 [facility] Vascular Ramiro Loco MD [facility] [address] [place] [address] [place] [address] [phone] Social History Tobacco Use Types Packs/Day Years [...] Neal - 08/20/2021 8:38 AM CDT [facility] Who is the name of the provider? Dr Gonzalez What is the location you see this provider at? [facility] Reason for call: Returned RN's call - relayed message - Pt is scheduled for Dr Gonzalez on 08/29/21 Visitor Services Technician: Raquel Phone number to call: [phone] Additional Notes: Telephone Encounter - Ro Taylor RN - 08/19/2021 4:37 PM CDT Discussed with Dr. Gonzalez, pt may have office visit with Dr. Gonzalez at next available, no further imaging needed. SHASTA Sotomayor, JOSE [facility] Office: [phone] Telephone Encounter - Cindy Taylor RN - 08/19/2021 4:29 PM CDT I called Raquel and Jami stating we will discuss with Dr. Gonzalez and get back to her. Cindy VEGAS, JOSE [facility] Office: [phone] Telephone Encounter - Kim Neal - 08/19/2021 3:55 PM CDT [facility] Who is the name of the [...] see Dr Gonzalez for another opinion/follow up. Visitor Services Technician: Raquel Phone number to call: [phone] Additional Notes: Pt stated he is still [...] Pt will need oral hydration. Routing to oxygen furnace operator to coordinate CTA c/a/p today. Please call pts daughter to coordinate [phone]. Then in person OV f/u with Dr. Loco at next nearest available. SHASTA Sotomayor, RN [facility] Office: [phone] Telephone Encounter - Ro Taylor RN - [...] has had consult with Dr. Orosco at [place], no further AAA surgery with Dr. Orosco. Reviewed with Rosario Hendricks MD. SHASTA Sotomayor, RN [facility] Office: [phone] Telephone Encounter - Lillian Uribe MA - [...] She would like a call back at [phone] documented in this encounter Plan of Treatment Not on filedocumented as of this encounter Visit Diagnoses Not on filedocumented in this encounter Additional Health Concerns Infection Onset Date Last Indicated Resolved Time MRSAComment: Positive 02/17/11 and 09/22/12 11/05/2018 019 Negatives 05/03/14 (HE), 12/01/14 (HE) documented as of this encounter Care Teams Change Release Manager Relationship Specialty Start Date End Date [facility] PCP - General 05/12/[address] [place] [address] documented as of this encounter
--- OUTSIDE RECORDS SUMMARY | 2022-08-15 11:27 | XMS_ITS | Encounter Summary ---
:1940 Author Organization [facility] Address [address] [facility] [place] [address] Care Team Providers Name Role Phone Clinic, [facility] Primary Care Provider [phone] Reason for Visit Reason Onset Date Comments Appointment 05/28/2020 Encounter Details Date Type Department Care Team Description 05/28/2020 Telephone [facility] Ramiro Loco MD Appointment [facility] [place] [address] [place] [address] [place] [address] [phone] Social History Tobacco Use Types Packs/Day Years [...] scheduling per these follow-up orders. Carolyn Jerome Senior Quality Control Technician [facility] Office: [phone] documented in this encounter Plan of Treatment Not on filedocumented as of this encounter Visit Diagnoses Not on filedocumented in this encounter Additional Health Concerns Infection Onset Date Last Indicated Resolved Time MRSAComment: Positive 02/17/11 and 09/22/12 11/05/2018 019 Negatives 05/03/14 (HE), 12/01/14 (HE) documented as of this encounter Care Teams Reinsurance Accountant Relationship Specialty Start Date End Date Bandar, Kehinde Portillofield PCP - General 05/12/[address] [place] [address] documented as of this encounter
--- OUTSIDE RECORDS SUMMARY | 2022-08-15 11:27 | XMS_ITS | Encounter Summary ---
:1940 Author Organization [facility] Address [address] [place] [address] Care Team Providers Name Role Phone Kehinde Portillo Primary Care Provider [phone] Encounter Details Date Type Department Care Team [...] documented as of this encounter Care Teams Group Supervisor Yard Relationship Specialty Start Date End Date [facility], Kehinde Santos PCP - General 05/12/[address] [place] [address] documented as of this encounter
--- OUTSIDE RECORDS SUMMARY | 2022-08-15 11:27 | XMS_ITS | Encounter Summary ---
:1940 Author Organization [facility] Address [address] [place] [address] Care Team Providers Name Role Phone Unavailable Primary Care Provider Unavailable Encounter Details Date Type Department Care Team Description 05/14/2022 Treatment [facility] Denilson Quinones MD [address] [place], [place] [phone] (Wo rk) Social History Tobacco Use Types Packs/Day Years Used Date Smoking Tobacco: Never Assessed Sex Assigned at Date Recorded Not on file documented as of this encounter Miscellaneous Notes Dialysis Note - Denilson Holly MD - 05/14/2022 1:29 PM CDT Date: May 14, 2022 Patient Name: Speedy Hendricks : 1940 Chart #: [id number] Sex: M MANAGER MEDICAL AFFAIRS: Denilson Holly MD LOCATION: [place] [phone] SCHEDULE: M-W-F 2nd Shift Chief Complaint: Acute [...] requiring HD. Transferred from [place] rehab to [facility] here, hoping to get home. First Hd here today, dry weight much lower than what they had listed it appears. Med list reviewed from [facility], on midodrine for hypotension with HD. [...] removed). Went to rehab, transferred back to [place] to [facility] for ongoing rehab closer to home. He has [facility] and in [place]. His daughter Raquel is ICU/COLLEGE FOOTBALL COACH (ramone currently) and is very involved. Problem [...] procaine Unknown Med list reviewed from [facility] Adequacy & Blood Pressure: spKt/V Gotch [...]
--- OUTSIDE RECORDS SUMMARY | 2022-08-15 11:27 | XMS_ITS | Encounter Summary ---
:1940 Author Organization [facility] Address [address] [place] [address] Care Team Providers Name Role Phone Unavailable Primary Care Provider Unavailable Encounter Details Date Type Department Care Team Description 04/16/2022 Treatment [facility] Denilson Quinones MD [address] [place], [place] [phone] [phone] (Wo rk) Social History Tobacco Use Types Packs/Day Years Used Date Smoking Tobacco: Never Assessed Sex Assigned at Date Recorded Not on file documented as of this encounter Miscellaneous Notes Dialysis Note - Denilson Holly MD - 04/16/2022 3:44 PM CDT Date: Apr 16, 2022 Patient Name: Speedy Hendricks : 1940 Chart #: [id number] Sex: M Patient Type: DEJA Modality: Hemodialysis Youth Care Professional: Denilson Holly MD Location: [place] [phone] Schedule: M-W-F 2nd Shift Initial Access Date [...] Name: Speedy Hendricks : 1940 Chart #: [id number] Sex: M SALVAGE MECHANIC: Denilson Holly MD LOCATION: [phone] SCHEDULE: -W- 2nd Shift Chief Complaint: Acute [...] requiring HD. Transferred from [place] rehab to [facility] here, hoping to get home. First Hd here today, dry weight much lower than what they had listed it appears. Med list reviewed from [facility], on midodrine for hypotension with [...] removed). Went to rehab, transferred back to [place] to [facility] for ongoing rehab closer to home. [facility] [place]. His daughter Raquel is ICU/ORDER EDITOR (ramone currently) and is very involved. Problem [...] - Cath - Tunneled [facility] [place] [facility] placement as on [...]
--- OUTSIDE RECORDS SUMMARY | 2022-08-15 11:27 | XMS_ITS | Encounter Summary ---
:1940 Author Organization [facility] Address [address] [place] [address] Care Team Providers Name Role Phone [facility], [facility] Primary Care Provider [phone] Encounter Details Date Type Department Care [...] with No / Unsure 09/23/2021 10:26 AM BREASTFEEDING PEER COUNSELOR someone who was confirmed or suspected to [...] as of this encounter Care Teams Senior Network Security Engineer Relationship Specialty Start Date End Date [facility] PCP - General 05/12/[address] [place] [address] documented as of this encounter
--- OUTSIDE RECORDS SUMMARY | 2022-08-15 11:27 | XMS_ITS | Encounter Summary ---
:1940 Author Organization [facility] Address [address] [facility] [place] [address] Care Team Providers Name Role Phone [facility], [facility] Primary Care Provider [phone] Reason for Referral Diagnostic Imaging CT Scan (Routine) - Closed Specialty Diagnoses / Procedures Referred By Contact Refer red To Contact Radiology. 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 Butch Brown MD Ct Scan [facility] Procedures CT Chest Abdomen Pelvis w/o Contrast [address] [address] Phone: Fax: Referral ID Status Reason Start Date Expiration Date Visits Requ ested Visits Authorized [id number] Closed 05/17/2019 05/16/2020 1 1 ION SEWER Reason for Visit Diagnostic Imaging CT Scan (Routine) - Closed Specialty Diagnoses / Procedures Referred By Contact Refer red To Contact Radiology. 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 Butch Brown MD Ct Scan [facility] Procedures CT Chest Abdomen Pelvis w/o Contrast [address] [place] [address] [address] Phone: Fax: Referral ID Status Reason Start Date Expiration Date Visits Requ ested Visits Authorized [id number] Closed 05/17/2019 05/16/2020 1 1 Encounter Details Date Type Department Care Team Description 11/09/2019 Hospital Encounter [facility] Butch Brown aortic [facility] MD [place] aneurysm (AAA) [address] [place] [address] AVE with out rupture (H) [address] [place] [address] Social History Tobacco Use Types Packs/Day [...] aortic Results for this PELVIS W/O CONTRAST CUSHION SEWER aneurysm (AAA) proced ure are in without rupture (H) the resu lts section. documented in this encounter Results CT Chest Abdomen Pelvis w/o Contrast (11/09/2019 11:25 AM CUSHION SEWER) Anatomical Region Laterality Modality Abdomen/Pelvis, SUBRAD CT BODY, UMP CT CHEST, UMP CT Computed Tomography ABDOMEN PELVIS, Chest, RAD CT Specimen (Source) Anatomical Location Collection Method / Collectio n Time Received Time / Laterality Volume Impressions 11/09/2019 3:17 PM CUSHION SEWER IMPRESSION: 1. 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 2. The aneurysm sac in the distal thorac ic aorta and an infrarenal abdominal aortic aneurysm have increased slightly in size since the previous exam. 3. Moderate age-indeterminate anterior c ompression of the T7 vertebral body is new since the previous exam. JON NICHOLS MD Narrative 11/09/2019 3:[address] CHEST, ABDOMEN AND PELVIS WITHOUT CONTRAST [...] as of this encounter Care Teams Hat Blocking Machine Operator Relationship Specialty Start Date End Date [facility], [facility] PCP - General 05/12/[address] [place] [address] documented as of this encounter
--- OUTSIDE RECORDS SUMMARY | 2022-08-15 11:27 | XMS_ITS | Encounter Summary ---
:1940 Author Organization [place] Address [address] [facility] [place] [address] Care Team Providers Name Role Phone [facility], [facility] Primary Care Provider [phone] Gallito Gonzalez MD Unavailable Encounter Details Date Type Department Care Team Description 11/04/2021 Telephone [facility] Gallito Gonzalez, Clinic Tram [facility] [address] [place] [address] [place] [id number] (Wo rk) Social History Tobacco Use Types [...] Gonzalez and pt notified. SHASTA Sotomayor, JOSE [facility] [place] Office: [phone] Telephone Encounter - Ro Taylor RN - 11/26/2021 1:[address] Gonzalez, Dr. Orosco was notified. Awaiting further direction from Dr. Gonzalez upon their discussion and to ensure pts daughter is notified. SHASTA Sotomayor, JOSE [facility] [place] Office: [phone] [facility] ONCOLOGY NURSE Telephone Encounter - Ro Taylor RN - 11/04/2021 4:56 PM CST JAMES 09/23/[address] Gonzalez I will get in touch with the patient's daughter after I discussed the case with Dr. Orosco Routing to Dr. Gonzalez for update on this/plan and verification of pts daughter contacted. SHASTA Sotomayor, RN [facility] [place] Office: [phone] [facility]IC ONCOLOGY NURSE documented in this encounter Plan of Treatment Not on filedocumented as of this encounter Visit Diagnoses Not on filedocumented in this encounter Additional Health Concerns Infection Onset Date Last Indicated Resolved Time MRSAComment: Positive 02/17/11 and 09/22/12 11/05/2018 019 Negatives 05/03/14 (HE), 12/01/14 (HE) documented as of this encounter Care Teams Office Bookkeeper Relationship Specialty Start Date End Date [facility], [facility] PCP - General 05/12/[address] [place] [address] Gallito Gonzalez MD Assigned Heart [facility] Vascular 09/29/21 [address] Provider [place] [id number] documented as of this encounter
--- OUTSIDE RECORDS SUMMARY | 2022-08-15 11:27 | XMS_ITS | Encounter Summary ---
:1940 Author Organization [place] Address [address] [place] [address] Care Team Providers Name Role Phone [facility] Primary Care Provider [phone] Encounter Details Date Type Department Care Team [...] documented as of this encounter Care Teams Cryptographic Technician Relationship Specialty Start Date End Date [facility] PCP - General 05/12/[address] [place] [address] documented as of this encounter
--- OUTSIDE RECORDS SUMMARY | 2022-08-15 11:27 | XMS_ITS | Encounter Summary ---
:1940 Author Organization [facility] Address [address] [place] [address] Care Team Providers Name Role Phone Unavailable Primary Care Provider Unavailable Encounter Details Date Type Department Care Team Description 05/07/2022 Orders Only [facility] Denilson Quinones MD [address] [place] [address] [place], [place] [phone] (Wo rk) Social History Tobacco Use [...] MD LAB BLOOD ORDERABLES Performing Organization Address City/[facility] Code Phon e Number [facility]PS [facility] GFR (05/07/2022) P athologist Signature eGFR CKD-EPI CR 30 mL/min [facility]PS S[facility]RA 2020 [facility] Comment: [employer] has implemented the recommended eGFR calculation that [...] 05/08/2022 Unless otherwise specified, test(s) performed at: [employer], [address] [place] [address], [place] [address] [employer] P[employer]: Raheem Malik M.D., Ph.D For any questions, please call customer service at FREQUENCY:OTHER Resulting Agency Comment Specimen source: Serum Denilson Holly MD LAB [id number] NSOLICITED RESULTS Performing Organization Address City/[facility] Code Phon e Number [...] 05/08/2022 Unless otherwise specified, test(s) performed at: [facility] [employer] [facility], [address] [place] [address], [place] [address] [employer]: Raheem Malik M.D., Ph.D For any questions, please call customer service at FREQUENCY:OTHER Resulting Agency Comment Specimen source: Blood Denilson Holly MD LAB BLOOD ORDERABLES Performing Organization Address City/State/ZIP Code Phon e Number [facility] documented in this encounter Visit Diagnoses Not on filedocumented in this encounter
--- OUTSIDE RECORDS SUMMARY | 2022-08-15 11:27 | XMS_ITS | Encounter Summary ---
:1940 Author Organization [facility] Address [address] [place] [address] Care Team Providers Name Role Phone Unavailable Primary Care Provider Unavailable Encounter Details Date Type Department Care Team Description 05/02/2022 Orders Only [facility] Denilson Quinones MD [address] [place] [address] [place], [place] [phone] (Wo rk) Social History Tobacco Use [...] 05/03/2022 Unless otherwise specified, test(s) performed at: [facility], [address] [place] [address] [place]ideon [place] [address] PANTOGRAPH WATCHER: Raheem Malik M.D., Ph.D For any questions, [...] BLOOD ORDERABLES Performing Organization Address City/[facility]/ZIP Code Phon e Number APS SPECTRA [facility] GFR (05/02/2022) P athologist Signature eGFR CKD-EPI CR 26 mL/min APS SPECTRA 2020 [facility] Comment: [facility] has implemented the recommended eGFR calculation that [...] 05/03/2022 Unless otherwise specified, test(s) performed at: [facility], [address] [place] [address] [facility]ideon [place] [address] PANTOGRAPH WATCHER: Raheem Malik M.D., Ph.D For any questions, please call customer service at FREQUENCY:OTHER Resulting Agency Comment Specimen source: Serum Denilson Holly MD LAB [id number] NSOLICITED RESULTS Performing Organization Address City/State/ZIP Code Phon e Number [facility] documented in this encounter Visit Diagnoses Not on filedocumented in this encounter
--- OUTSIDE RECORDS SUMMARY | 2022-08-15 11:27 | XMS_ITS | Encounter Summary ---
:1940 Author Organization [place] Address [address] [facility] [place] [address] Care Team Providers Name Role Phone [facility], [facility] Primary Care Provider [phone] Reason for Referral Diagnostic Imaging CT Scan (Routine) - Closed Specialty Diagnoses / Procedures Referred By Contact Refer red To Contact Radiology. 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 Butch Brown MD Rh Ct Scan [facility] Procedures CT Chest Abdomen Pelvis w/o Contrast [address] [place] [address] [place] [address] [place] [address] Phone: Fax: Referral ID Status Reason Start Date Expiration Date Visits Requ ested Visits Authorized [id number] Closed 05/17/2019 05/16/2020 1 1 Encounter Details Date Type Department Care Team Description 05/17/2019 [facility] Only [facility] Butch Brown Abdominal aortic Vascular Clinic Félix Jay MD aneurysm (AAA) without [address] ru pture (H) (Primary [address] Dx) [place] [address] [place] [address] [phone] Social History Tobacco Use Types Packs/Day Years [...] Abdomen Pelvis w/o Contrast (11/09/2019 11:25 AM FINANCE ADMIN) Anatomical Region Laterality Modality Abdomen/Pelvis, SUBRAD CT BODY, UMP CT CHEST, UMP CT Computed Tomography ABDOMEN PELVIS, Chest, RAD CT Specimen (Source) Anatomical Location Collection Method / Collectio n Time Received Time / Laterality Volume Impressions 11/09/2019 3:17 PM FINANCE ADMIN IMPRESSION: 1. 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 2. The aneurysm sac in the distal thorac ic aorta and an infrarenal abdominal aortic aneurysm have increased slightly in size since the previous exam. 3. Moderate age-indeterminate anterior c ompression of the T7 vertebral body is new since the previous exam. JON NICHOLS MD Narrative 11/09/2019 3:[address] CHEST, ABDOMEN AND PELVIS WITHOUT CONTRAST [...] documented as of this encounter Care Teams Motel Operator Relationship Specialty Start Date End Date [place], [facility] PCP - General 05/12/[address] [place] [address] documented as of this encounter
--- OUTSIDE RECORDS SUMMARY | 2022-08-15 11:27 | XMS_ITS | Encounter Summary ---
:1940 Author Organization [place] Address [address] [place] [address] Care Team Providers Name Role Phone Clinic, [facility] Primary Care Provider [phone] Encounter Details Date Type Department Care Team Description 12/08/[address] [facility] Tho racic aortic aneurysm [facility] without rupture (H) [address] [place] [address] Social History Tobacco Use [...] AM Thoracic aortic Resul ts for this [employer] aneurysm without procedure a re in the rupture (H) results section . documented in this encounter Results (ABNORMAL) Creatinine (12/08/2019 10:59 AM [employer]) Analysis Performed At [facility] logis Time Signature Creatinine 1.36 (H) 0.66 - 12/09/2019 [place] 1.25 mg/dL 9:03 AM [facility] GFR Estimate 50 (L) >60 12/09/2019 [place] mL/min/{1. 9:03 AM [facility] 73_m2} [facility] Comment: Non GFR Calc Starting 10/05/2018, serum creatinine ba sed estimated GFR (eGFR) will be calculated using the Chronic Kidney Dise [facility] Epidemiology Collaboration (CKD-EPI) equation. GFR Estimate If 58 (L) >60 mL/min/{1.73_m2} 12/09/2019 9:03 AM [facility] Comment: GFR Calc Starting 10/05/2018, serum creatinine ba sed estimated GFR (eGFR) will be calculated using the Chronic Kidney Dise ase Epidemiology Collaboration (CKD-EPI) equation. Specimen Anatomical Collection Method Collection Time Receive d Time (Source) Location / / Volume Laterality Blood specimen 12/08/2019 10:59 0 (specimen) AM [employer] 11:04 AM [employer] Ramiro Loco MD LAB - BLOOD ORDERABLES Performing Organization Address City/State/ZIP Code Phon e Number [facility] [address] [place] [address] documented in this encounter Visit Diagnoses Diagnosis Thoracic aortic aneurysm without rupture Thoracic aneurysm without mention of rup ture documented in this encounter Additional Health Concerns Infection Onset Date Last Indicated Resolved Time MRSAComment: Positive 02/17/11 and 09/22/12 11/05/2018 019 Negatives 05/03/14 (HE), 12/01/14 (HE) documented as of this encounter Care Teams Process Development Manager Relationship Specialty Start Date End Date Kehinde Portillofield PCP - General 05/12/[address] [place] [address] documented as of this encounter
--- OUTSIDE RECORDS SUMMARY | 2022-08-15 11:28 | XMS_ITS | Encounter Summary ---
:1940 Author Organization [place] Address [address] [place] [address] Care Team Providers Name Role Phone Clinic, [facility] Primary Care Provider [phone] Encounter Details Date Type Department Care Team Description 11/05/2018 Anesthesia Event [facility] Bart Feliciano [place] MD Interventional [facility] Radiology [address] [place] [address] [place] [phone] Anesthesia Record Procedure Summary Procedure Name Responsible [...] documented as of this encounter Care Teams Rural Carrier Associate Relationship Specialty Start Date End Date Clinic, [facility] PCP - General 05/12/[address] [place] [address] documented as of this encounter
--- OUTSIDE RECORDS SUMMARY | 2022-08-15 11:28 | XMS_ITS | Encounter Summary ---
:1940 Author Organization [place] Address [address] [facility] [place] [address] Care Team Providers Name Role Phone [facility], [facility] Primary Care Provider [phone] Reason for Referral Therapeutic Imaging/IR - Closed Specialty Diagnoses / Procedures Referred By Contact Refer red To Contact Diagnoses Descending thoracic aortic aneurysm Juan Lewis MD Procedures IR Thoracic Endovascular Stent Graft [address] [place] [address] Referral ID Status Reason Start Date Expiration Date Visits Requ ested Visits Authorized [id number] Closed 10/28/2018 10/28/2019 1 1 ULTING PRACTICE MANAGER Reason for Visit Auth/Cert Specialty Diagnoses / Procedures Referred By Contact Refer red To Contact Surgery Diagnoses DESCENDING THORACIC AORTIC ANEURYSM Sh Periop Services Procedures ENDOVASCULAR REPAIR ANEURYSM THORACIC AORTIC [address] [place] [address] Phone: Referral ID Status Reason Start Date Expiration Date Visits Requ ested Visits Authorized [id number] 1 1 Encounter Details Date Type Department Care Team Description 11/05/2018 - Hospital Encounter [facility] Elizabeth Lewis MD [address] [place] [id number] Thoracic aortic aneurysm without rupture (H) (Primary Dx); 11/09/2018 Gallito Sommers MD [address] [place] [id number] Descending thoracic aortic aneurysm (H) Intermediate Care Butch Brown MD [address] [place] [id number] [address] [place] [address] Social [...] Comments Blood Pressure 158/88 11/09/2018 8:28 AM CONSULTING PRACTICE MANAGER Pulse 100 11/09/2018 5:00 AM CONSULTING PRACTICE MANAGER Temperature 36.6 ??C (97.9 ??F) 11/09/2018 7:31 AM CONSULTING PRACTICE MANAGER Respiratory Rate 22 11/09/2018 8:00 AM CONSULTING PRACTICE MANAGER Oxygen Saturation 93% 11/09/2018 5:00 AM CONSULTING PRACTICE MANAGER Inhaled Oxygen Concentration - - Weight 87.3 kg (192 lb 7.4 oz) 11/09/2018 6:39 AM CONSULTING PRACTICE MANAGER Height 167.6 cm (5' 6) 11/05/2018 6:27 AM CONSULTING PRACTICE MANAGER Body Mass Index 31.06 11/05/2018 6:27 AM CONSULTING PRACTICE MANAGER documented in this encounter Discharge Summaries Bessy Mccray MD - 11/09/2018 10:56 AM CST Physician Discharge Summary Patient ID: Speedy Hendricks [id number] 78 year old 1940 Admit date: 11/05/2018 [...] an oral diet. He was discharged to [facility] on POD#4 in stable condition. [...] to. Signed: Bessy Mccray 11/09/2018 10:56 AM ULTING PRACTICE MANAGER Associated attestation - uJan Lewis MD - 11/11/2018 3:10 PM CONSULTING PRACTICE MANAGER Physician Attestation I, Juan Lewis, have reviewed [...] Traylor RN - 11/09/2018 11:47 AM CST ULTING PRACTICE MANAGER AttachmentsThe following attachments cannot be sent through Care Everywhere.(S) TREATING A THORACIC AORTIC ANEURYSM (TAA): ENDOVASCULAR GRAFT (COMORAN) documented in this encounter Medications at Time [...] home with family via car.All questions answered. ULTING PRACTICE MANAGER Gurwinder Godoy MD - 11/09/2018 12:[address] [facility] Vascular Medicine Progress Note Date of Service (when I saw the patient): 11/09/2018 Physician Supervisory Attestation: I have reviewed and discussed with the physician fiscal assistant their history, physical and plan and [...] Discussed with vascular surgery service. Gurwinder Godoy MD,[facility] Vascular Medicine service 11/09/2018 Assessment & [...] Rate: 93 Resp: 22 SpO2: 93 % [id number]: None (Room air) Vitals: 11/06/18 0211 11/07/18 [...] = values in this interval not displayed. ULTING PRACTICE MANAGER Bessy Mccray MD - 11/09/2018 7:36 AM [...] Bessy Martinez MD Vascular Surgery Fellow Pager ULTING PRACTICE MANAGER Associated attestation - Butch Brown MD - 11/16/2018 9:50 AM CONSULTING PRACTICE MANAGER I was involved with the assessment and plan, and I agree with the findings and plan of care as documented in the fellow's note. MD Wilfredo Castillo Carley, RN - 11/08/2018 6:35 PM CST Pt arrived to station 33 @ 1820 ULTING PRACTICE MANAGER Aura Crooks RN - 11/08/2018 5:05 PM CST Pt had drained removed this AM. Draining moderate amount- MDA aware. SR. BP wnl- gave hydralazine x1prn. Chapman to be removed prior to transfer. Lines out and hemostasis achieved. Up to chair- tolerated well, SBA. Frequent neuros- wnl. Will call report to [facility] and will transfer at . ULTING PRACTICE MANAGER Dimas Chapman MD - 11/08/2018 12:[address] [facility] Vascular Medicine Progress Note Date of [...] -- AST 19 -- -- -- -- ULTING PRACTICE MANAGER Bessy Mccray MD - 11/08/2018 8:18 AM [...] Bessy Martinez MD Vascular Surgery Fellow Pager ULTING PRACTICE MANAGER Associated attestation - Butch Brown MD - 11/16/2018 3:00 PM CONSULTING PRACTICE MANAGER I was involved with the assessment and [...] please contact primary service first. Kaleb Rodriguez ULTING PRACTICE MANAGER Kristy Castañeda RN - 11/08/2018 6:50 AM [...] drain tubing following [place]cl[place] [id number] down from 100s yesterday. At this time, [...] Christina Burrell MD Vascular Surgery Fellow Pgr ULTING PRACTICE MANAGER Bishop Tran MD - 11/07/2018 11:55 AM CST Oil Well Pumper: S: Mild groin pain this morning, but [...] Dr. Staley of vascular medicine at bedside. Oil Well Pumper service will sign off for now. Please re-consult as needed. ULTING PRACTICE MANAGER Gurwinder Godoy MD - 11/07/2018 9:[address] [facility] Vascular Medicine Progress Note Date of [...] If any change in neuro status contact [facility] surgery first and consider neurocritical [...] good Reviewed last night events, discussed with Oil Well Pumper and ICU nursing staff this am. Patients [...] . Avoid nephrotoxic meds. ?? Gurwinder Godoy MD,[facility] Vascular Medicine Interval History Reviewed last [...] to keep SBP <160 and MAP >80. ULTING PRACTICE MANAGER Gurwinder Godoy MD - 11/06/2018 12:[address] [facility] Vascular Medicine Progress Note Date of [...] creat 1.52 same as admission range Leave champan as long as spinal drain in place [...] . Avoid nephrotoxic meds. ?? Gurwinder Godoy MD,FS,[facility] Vascular Medicine Interval History Reviewed last [...] 7.8* 8.6 -- GLC 115* 121* -- ULTING PRACTICE MANAGER Millie Handley APRN BIZTALK CONSULTANT - 11/06/2018 11:55 AM CST Critical [...] Total critical care time today 35 min. ULTING PRACTICE MANAGER Associated attestation - Bishop Tran MD - 11/12/2018 10:50 AM CONSULTING PRACTICE MANAGER Physician Attestation I, Bishop Tran, have reviewed [...] sufficient urine. Continue plan as documented in INSPECTOR METAL FABRICATING note. The patient does not seem to [...] for the 11/05/2018 admission is complete. See [facility] admission navigator for prior to admission medications Medication history source reliability:Good Medication history interview source(s):Patient Medication history resources (including written lists, pill bottles, clinic record):Patient mailed in his medication list prior to surgery Primary pharmacy.[place] Additional medication history information not noted on ORDER WORKER med list :None Time spent in this [...] Bedtime 11/04/2018 at 2200 Yes Reported, Patient ULTING PRACTICE MANAGER documented in this encounter Procedure Notes Missael [...] management per anethesia/vasc surg Missael Garcia MD [phone] ULTING PRACTICE MANAGER documented in this encounter Consult Notes Kaleb Rodriguez NP - 11/05/2018 5:14 PM CSTAssociated Order(s): LASER ENGRAVER IP CONSULT [facility] Consult Critical Care Service Date of [...] Code Status Full Code Primary Care Physician [facility] Chief Complaint S/p TEVAR [...] IR Lumbar Drain Placement w Fluoro Narrative [facility] RADIOLOGY INTERVENTIONAL NEURORADIOLOGY PROCEDURAL NOTE [...] CPT codes included for physician reference only: 28099/99437 MISSAEL GARCIA MD Glucose by meter Result Value Ref Range Glucose 124 (H) 70 - 99 mg/dL ULTING PRACTICE MANAGER Associated attestation - Olive Bello MD - 11/05/2018 10:58 PM CONSULTING PRACTICE MANAGER ICU STAFF: I have discussed Mr. Hendricks's [...] management per vascular surgery. Olive Bello MD #[id number] 11/05/18 Bill as Advanced Practice Provider only. Gurwinder Godoy MD - 11/05/2018 1:[address] [facility] Vascular Medicine Consultation Date of Admission: 11/05/2018 Date of Consult (When I saw the patient): 11/05/18 Physician Supervisory Attestation: I have reviewed and discussed with the physician fiscal assistant their history, physical and plan and [...] consult Copy to Dr. Debbie Godoy MD ,[facility] Vascular Medicine 11/05/2018 Assessment & Plan [...] 1.67* ANIONGAP -- 7 -- 7 8 BLADEMAR -- 8.8 -- 8.8 8.9 GLC -- 97 -- 105* 103* Most Recent 3 INR's: Recent Labs Lab Test 11/14/17 2329 INR 0.96 Most Recent Cholesterol Panel: Recent Labs Lab Test 11/05/18 0655 CHOL 128 LDL 44 HDL 59 TRIG 125 Most Recent Hemoglobin A1c: Recent Labs Lab Test 11/05/18 0655 A1C 5.2 ULTING PRACTICE MANAGER documented in this encounter Nursing Notes Isis Rivera, JOSE - 11/05/2018 8:40 AM CST Noted swelling left ankle ULTING PRACTICE MANAGER documented in this encounter Miscellaneous Notes Plan [...] sites soft, bruised, CMS intact. Voiding okay. ULTING PRACTICE MANAGER Plan of Care - Misty Villalobos RN - 11/08/2018 7:10 PM CST A/O x4. AVSS on RA. Tele NSR. Hydralazine given x1. Up SBA. Neuros intact. CMS intact. Groin sites, steri strips. Back site, moist drainage. Pulses, palpable, +2. Regular diet. Chapman removed at 1740, Due to void. ULTING PRACTICE MANAGER Provider Notification - Aura rCooks RN - 11/08/2018 11:37 AM CST MD NOTIFICATION Person Notified: MDA Notified Person's Name: Yeimi Notification Date/Time: 11/08/2017 1135 Notification Interaction: Paged physician Purpose of Notification: Pt remains to have drainage from lumbar drain site. Orders Received: MDA to come assess pt. ULTING PRACTICE MANAGER Plan of Care - Kristy Castañeda RN [...] access readiness for lumbar drain removal today. ULTING PRACTICE MANAGER Provider Notification - Kristy Castañeda RN - [...] assess pulling the drain. Kristy Castañeda RN ULTING PRACTICE MANAGER Plan of Care - Aura Crooks RN - 11/07/2018 6:17 PM CST Neuro: LUCAS- strength 5/5. PERRL. Complains of soreness in groin/hips from moving them too much. Ptup in chair for a hour and tolerated well. Ok'd with Anesthesia MD, [place], to get up in chair forno more [...] some blood in tubing- Anesthesia MD aware. ULTING PRACTICE MANAGER Plan of Care - Danette Peck RN - 11/07/2018 1:12 PM CST [id number] Continued with numbness bilateral top of thighs. [...] and dtr in room when Drs here. ULTING PRACTICE MANAGER Provider Notification - Ramiro Lozano RN - 11/07/2018 6:17 AM CST Paged vascular surgery fellow Ashanti regarding new numbness to anterior thighs. CSF has been drained, will begin 500ml bolus unless directed otherwise. ULTING PRACTICE MANAGER Plan of Care - Ramiro Lozano RN [...] clamped now. Daughter Raquel updated this morning. ULTING PRACTICE MANAGER Provider Notification - Ramiro Lozano RN - 11/07/2018 5:[address] Wang regarding new leg pain and ICP increase. Opening drain for 15ml CSF over 1 hr per order. ULTING PRACTICE MANAGER Plan of Care - Danette Peck RN - 11/06/2018 4:34 PM CST [id number] Neuro checks remain intact. Able to move [...] be retested for MRSA per infection control. ULTING PRACTICE MANAGER Plan of Care - Ramiro Lozano RN [...] this shift. Daughter Raquel updated this morning. ULTING PRACTICE MANAGER Plan of Care - Danette Peck RN - 11/05/2018 9:43 PM CST [id number] Neuro: intact. Able to move hips slightly [...] by physicians. Care transferred to next nurse. ULTING PRACTICE MANAGER Provider Notification - Ramiro Lozano RN - 11/05/2018 7:46 PM CST Notified drum builder regarding failure to meet MAP goal of 80, new orders received. ULTING PRACTICE MANAGER Op Note - Butch Brown MD - [...] descending aortic angiogram SURGEON: Butch Brown MD CATCHER PLUG: Kannan Morse MD; Bessy Mas MD - [...] then able to upsized to a 6 [place] sheath over a Bentson wire.The patient was [...] femoral artery and upsized to an 11 [place] sheath. We then able to insert JULIANE [...] was removed and backfilled with a 16 [place] dry seal on the left.At this point [...] superficial femoral artery access which was 6 [place] sheath with an Angio-Seal closure device performed [...] the drain. Butch Brown MD Vascular Surgery ULTING PRACTICE MANAGER Brief Op Note - Bessy Mccray MD - 11/05/2018 12:[address] [facility] Brief Operative Note Pre-operative diagnosis: DESCENDING [...] Palp DP bilaterally Complications: None. Implants: None. ULTING PRACTICE MANAGER Associated attestation - Butch Brown MD - 11/05/2018 1:09 PM CONSULTING PRACTICE MANAGER Butch Brown MD IR Note - Gwen Rivas RN - 11/05/2018 10:27 AM CST Interventional Radiology Intra-procedural Nursing Note Patient Name: Speedy Hendricks Today's Date: November 05, 2018 Start Time: 0850 End of procedure time: 904 Procedure: lumbar drain placement Report given to: Dr. See, anesthesia Time pt departs: 919 Cash Analyst: n/a Other Notes: patient tolerated well. Drain connected to closed drainage system flushed with preservative free NS per Dr. Haro. 1mg Versed and 50mcg Fentanyl IV given for additional sedation (had received 4mg Versed and 100mcg Fentanyl in pre-op prior to arrival). SR on monitor .VSS. Patient taken back to pre-op bay in stable condition. Gwen Rivas RNarchitectural draftsperson Radiology ULTING PRACTICE MANAGER documented in this encounter Plan of Treatment Not on filedocumented as of this encounter Procedures Procedure Name Priority Date/Time Associated Comments Diagnosis CBC WITH PLATELETS & Routine 11/09/2018 7:41 AM Descending tho racic Results for this DIFFERENTIAL CONSULTING PRACTICE MANAGER aortic aneurysm (H) procedur e are in the results section. COMPREHENSIVE Routine 11/09/2018 7:41 AM Descending thoracic R esults for this METABOLIC PANEL CONSULTING PRACTICE MANAGER aortic aneurysm (H) proce dure are in the results section. MAGNESIUM Routine 11/08/2018 3:40 AM Descending thoracic Re sults for this CONSULTING PRACTICE MANAGER aortic aneurysm (H) procedur e are in the results section. COMPREHENSIVE Routine 11/08/2018 3:40 AM Descending thoracic R esults for this METABOLIC PANEL CONSULTING PRACTICE MANAGER aortic aneurysm (H) proce dure are in the results section. CBC WITH PLATELETS Routine 11/08/2018 3:40 AM Descending thora cic Results for this CONSULTING PRACTICE MANAGER aortic aneurysm (H) procedur e are in the results section. CBC WITH PLATELETS STAT 11/07/2018 3:00 PM Descending thora cic Results for this CONSULTING PRACTICE MANAGER aortic aneurysm (H) procedur e are in the results section. CBC WITH PLATELETS & Timed 11/07/2018 9:50 AM Descending tho racic Results for this DIFFERENTIAL CONSULTING PRACTICE MANAGER aortic aneurysm (H) procedur e are in the results section. MAGNESIUM Routine 11/07/2018 9:50 AM Descending thoracic Re sults for this CONSULTING PRACTICE MANAGER aortic aneurysm (H) procedur e are in the results section. BASIC METABOLIC PANEL Timed 11/07/2018 9:50 AM Descending th oracic Results for this CONSULTING PRACTICE MANAGER aortic aneurysm (H) procedur e are in the results section. GLUCOSE BY METER Routine 11/07/2018 7:44 AM Descending thoraci c Results for this CONSULTING PRACTICE MANAGER aortic aneurysm (H) procedur e are in the results section. GLUCOSE BY METER Routine 11/07/2018 3:49 AM Descending thoraci c Results for this CONSULTING PRACTICE MANAGER aortic aneurysm (H) procedur e are in the results section. GLUCOSE BY METER Routine 11/07/2018 12:08 Descending thoracic Results for this AM CONSULTING PRACTICE MANAGER aortic aneurysm (H) procedur e are in the results section. GLUCOSE BY METER Routine 11/06/2018 7:53 PM Descending thoraci c Results for this CONSULTING PRACTICE MANAGER aortic aneurysm (H) procedur e are in the results section. GLUCOSE BY METER Routine 11/06/2018 11:02 Descending thoracic Results for this AM CONSULTING PRACTICE MANAGER aortic aneurysm (H) procedur e are in the results section. GLUCOSE BY METER Routine 11/06/2018 7:38 AM Descending thoraci c Results for this CONSULTING PRACTICE MANAGER aortic aneurysm (H) procedur e are in the results section. LACTIC ACID WHOLE Routine 11/06/2018 4:15 AM Descending thorac ic Results for this BLOOD CONSULTING PRACTICE MANAGER aortic aneurysm (H) procedur e are in the results section. BASIC METABOLIC PANEL Routine 11/06/2018 4:15 AM Descending th oracic Results for this CONSULTING PRACTICE MANAGER aortic aneurysm (H) procedur e are in the results section. CBC WITH PLATELETS Routine 11/06/2018 4:15 AM Descending thora cic Results for this CONSULTING PRACTICE MANAGER aortic aneurysm (H) procedur e are in the results section. GLUCOSE BY METER Routine 11/06/2018 1:12 AM Descending thoraci c Results for this CONSULTING PRACTICE MANAGER aortic aneurysm (H) procedur e are in the results section. MRSA MSSA PCR, NASAL STAT 11/05/2018 11:41 Descending thora cic Results for this SWAB PM CONSULTING PRACTICE MANAGER aortic aneurysm (H) procedur e are in the results section. GLUCOSE BY METER Routine 11/05/2018 8:16 PM Descending thoraci c Results for this CONSULTING PRACTICE MANAGER aortic aneurysm (H) procedur e are in the results section. GLUCOSE BY METER Routine 11/05/2018 4:39 PM Descending thoraci c Results for this CONSULTING PRACTICE MANAGER aortic aneurysm (H) procedur e are in the results section. INR STAT 11/05/2018 4:35 PM Descending thoracic Re sults for this CONSULTING PRACTICE MANAGER aortic aneurysm (H) procedur e are in the results section. LACTIC ACID WHOLE STAT 11/05/2018 4:35 PM Descending thorac ic Results for this BLOOD CONSULTING PRACTICE MANAGER aortic aneurysm (H) procedur e are in the results section. BASIC METABOLIC PANEL STAT 11/05/2018 4:35 PM Descending th oracic Results for this CONSULTING PRACTICE MANAGER aortic aneurysm (H) procedur e are in the results section. CBC WITH PLATELETS STAT 11/05/2018 4:35 PM Descending thora cic Results for this CONSULTING PRACTICE MANAGER aortic aneurysm (H) procedur e are in the results section. IR THORACIC Routine 11/05/2018 12:09 Descending thoracic Resu lts for this ENDOVASCULAR STENT PM CONSULTING PRACTICE MANAGER aortic aneurysm (H) pr ocedure are in GRAFT the results section. REPAIR, ANEURYSM, 11/05/2018 9:35 AM DESCENDING THORAC IC THORACIC AORTIC, CONSULTING PRACTICE MANAGER AORTIC ANEURYSM ENDOVASCULAR Special Needs BLOOD TRANSFUSION ISSUE (RAR E ANTIBODIES) PT WILL DO A TYPE AND CROSS ON 11/03 JALEEL 10/28 IR LUMBAR DRAIN Routine 11/05/2018 9:10 AM Result s for this PLACEMENT W FLUORO CONSULTING PRACTICE MANAGER procedure are in the results section. EKG 12-LEAD, TRACING STAT 11/05/2018 6:58 AM R esults for this ONLY CONSULTING PRACTICE MANAGER procedure are i n the results section. POTASSIUM STAT 11/05/2018 6:55 AM Descending thoracic Re sults for this CONSULTING PRACTICE MANAGER aortic aneurysm (H) procedur e are in the results section. LIPID PROFILE STAT 11/05/2018 6:55 AM Descending thoracic R esults for this CONSULTING PRACTICE MANAGER aortic aneurysm (H) procedur e are in the results section. HEMOGLOBIN A1C STAT 11/05/2018 6:55 AM Descending thoracic Results for this CONSULTING PRACTICE MANAGER aortic aneurysm (H) procedur e are in the results section. CREATININE STAT 11/05/2018 6:55 AM Descending thoracic Re sults for this CONSULTING PRACTICE MANAGER aortic aneurysm (H) procedur e are in the results section. XR CHEST PORT 1 VIEW STAT 11/05/2018 6:40 AM R esults for this CONSULTING PRACTICE MANAGER procedure are i n the results section. EKG CARDIAC - HIM 09/24/2018 12:00 AM SCAN CONSULTING PRACTICE MANAGER documented in this encounter Results (ABNORMAL) CBC with platelets differential (11/09/2018 7:41 AM CONSULTING PRACTICE MANAGER) Component Value Ref Test Analysis Performed At [facility] gist Range Method Time Signature WBC 9.3 4.0 - 11/09/2018 [facility] 11.0 8:06 AM CONSULTING PRACTICE MANAGER [address] RBC Count 3.55 (L) 4.4 - 11/09/2018 [facility] 5.9 8:06 AM [place] [id number] Hemoglobin 11.3 (L) 13.3 - 11/09/2018 [facility] 17.7 8:06 AM [facility] Hematocrit 33.7 (L) 40.0 - 11/09/2018 [facility] 53.0 % 8:06 AM [facility] MCV 95 78 - 100 11/09/2018 [facility] fl 8:06 AM [facility] MCH 31.8 26.5 - 11/09/2018 [facility] 33.0 pg 8:06 AM [facility] MCHC 33.5 31.5 - 11/09/2018 [facility] 36.5 8:06 AM [facility] RDW 13.9 10.0 - 11/09/2018 [facility] 15.0 % 8:06 AM [facility] Platelet Count 83 (L) 150 - 11/09/2018 [facility] 450 8:[address] Diff Method Manual 11/09/2018 [facility] Differential 8:31 AM [facility] % Neutrophils 85.0 % 11/09/2018 [facility] 8:31 AM [facility] % Lymphocytes 6.0 % 11/09/2018 [facility] 8:31 AM [facility] % Monocytes 7.0 % 11/09/2018 [facility] 8:31 AM [facility] % Eosinophils 2.0 % 11/09/2018 [facility] 8:31 AM [facility] % Basophils 0.0 % 11/09/2018 [facility] 8:31 AM [facility] Absolute 7.9 1.6 - 11/09/2018 [facility] Neutrophil 8.3 8:[address] Absolute 0.6 (L) 0.8 - 11/09/2018 [facility] Lymphocytes 5.3 8:[address] Absolute 0.7 0.0 - 11/09/2018 [facility] Monocytes 1.3 8:[address] Absolute 0.2 0.0 - 11/09/2018 [facility] Eosinophils 0.7 8:[address] Absolute 0.0 0.0 - 11/09/2018 [facility] Basophils 0.2 8:[address] RBC Morphology Consistent with 11/09/2018 [facility] reported results 8:31 AM [facility] Platelet Automated count 11/09/2018 [facility] Estimate confirmed. 8:31 AM [facility] morphology is normal. Specimen Anatomical Collection Method Collection Time Receive d Time (Source) Location / / Volume Laterality Blood specimen 11/09/2018 7:41 AM 019 7:51 (specimen) CONSULTING PRACTICE MANAGER AM CONSULTING PRACTICE MANAGER Dimas Chapman MD LAB - BLOOD ORDERABLES Performing Organization Address City/State/ZIP Code Phon e Number M [facility] [address] [place] [address] [phone] [facility] [address] [place] [address] [address], [place] [phone] (ABNORMAL) Comprehensive metabolic panel (11/09/2018 7:41 AM CONSULTING PRACTICE MANAGER) P athologist Signature Sodium 144 133 - 144 11/09/2018 [place] mmol/L 8:11 AM [facility] Potassium 4.0 3.4 - 5.3 11/09/2018 [place] mmol/L 8:11 AM [facility] Chloride 113 (H) 94 - 109 11/09/2018 [place] mmol/L 8:11 AM [facility] Carbon Dioxide 22 20 - 32 11/09/2018 [place] mmol/L 8:17 AM [facility] Anion Gap 9 3 - 14 11/09/2018 [place] mmol/L 8:17 AM [facility] Glucose 94 70 - 99 11/09/2018 [place] mg/dL 8:17 AM [facility] Urea Nitrogen 21 7 - 30 11/09/2018 [place] mg/dL 8:17 AM [facility] Creatinine 1.24 0.66 - 11/09/2018 [place] 1.25 mg/dL 8:17 AM [facility] GFR Estimate 56 (L) >60 11/09/2018 [place] mL/min/{1. 8:17 AM [facility] 73_m2} [facility]OSPITAL Comment: Non GFR Calc Starting 10/05/2018, serum creatinine ba sed estimated GFR (eGFR) will be calculated using the Chronic Kidney Dise [facility] Epidemiology Collaboration (CKD-EPI) equation. GFR Estimate If 65 >60 mL/min/{1.73_m2} 11/09/2018 8: 17 AM [facility] Comment: GFR Calc Starting 10/05/2018, serum creatinine ba sed estimated GFR (eGFR) will be calculated using the Chronic Kidney Dise [facility] Epidemiology Collaboration (CKD-EPI) equation. Calcium 8.4 (L) 8.5 - 10.1 11/09/2018 8:17 AM [facility] mg/dL [facility] Bilirubin Total 1.3 0.2 - 1.3 mg/dL 11/09/2018 8:19 AM [facility] Albumin 2.4 (L) 3.4 - 5.0 g/dL 11/09/2018 8:19 AM [facility] Protein Total 6.2 (L) 6.8 - 8.8 g/dL 11/09/2018 8:19 AM [facility] Alkaline Phosphatase 72 40 - 150 U/L 11/09/2018 8:19 AM [facility] ALT 17 0 - 70 U/L 11/09/2018 8:19 AM [facility] AST 15 0 - 45 U/L 11/09/2018 8:19 AM [facility] Specimen Anatomical Collection Method Collection Time Receive d Time (Source) Location / / Volume Laterality Blood specimen 11/09/2018 7:41 AM 019 7:51 (specimen) CONSULTING PRACTICE MANAGER AM CONSULTING PRACTICE MANAGER Dimas Chapman MD LAB - BLOOD ORDERABLES Performing Organization Address City/State/ZIP Code Phon e Number M [facility] [address] [address] [facility] [address] [address], U [phone] Magnesium Level scheduled every Thu Wed Thu (11/08/2018 3:40 AM CONSULTING PRACTICE MANAGER) athologist Signature Magnesium 1.7 1.6 - 2.3 11/08/2018 [facility] mg/dL 4:06 AM [facility] Specimen Anatomical Collection Method Collection Time Receive d Time (Source) Location / / Volume Laterality Blood specimen 11/08/2018 3:40 AM 019 3:46 (specimen) CONSULTING PRACTICE MANAGER AM CONSULTING PRACTICE MANAGER Dimas Chapman MD LAB - BLOOD ORDERABLES Performing Organization Address City/State/ZIP Code Phon e Number M [facility] [address] [place] [address] [facility] [address] [place] [address], [place] [phone] (ABNORMAL) Comprehensive metabolic panel (11/08/2018 3:40 AM CONSULTING PRACTICE MANAGER) Analysis Performed At Patho logist Time Signature Sodium 142 133 - 144 11/08/2018 [place] mmol/L 3:58 AM [facility] Potassium 4.2 3.4 - 5.3 11/08/2018 [facility] mmol/L 3:58 AM [facility] Chloride 111 (H) 94 - 109 11/08/2018 [facility] mmol/L 3:58 AM [facility] Carbon Dioxide 22 20 - 32 11/08/2018 [place] mmol/L 4:04 AM [facility] Anion Gap 9 3 - 14 11/08/2018 [place] mmol/L 4:04 AM [facility] Glucose 164 (H) 70 - 99 11/08/2018 [place] mg/dL 4:04 AM [facility] Urea Nitrogen 20 7 - 30 11/08/2018 [place] mg/dL 4:04 AM [facility] Creatinine 1.29 (H) 0.66 - 11/08/2018 [facility] 1.25 mg/dL 4:04 AM [facility] GFR Estimate 53 (L) >60 11/08/2018 [place] mL/min/{1. 4:04 AM [facility] 73_m2} [facility] Comment: Non GFR Calc Starting 10/05/2018, [...] (L) 8.5 - 10.1 11/08/2018 4:04 AM [facility] mg/dL [facility] Bilirubin Total 1.1 0.2 - 1.3 mg/dL 11/08/2018 4:06 AM [facility] Albumin 2.6 (L) 3.4 - 5.0 g/dL 11/08/2018 4:06 AM [facility] Protein Total 6.0 (L) 6.8 - 8.8 g/dL 11/08/2018 4:06 AM [facility] Alkaline Phosphatase 62 40 - 150 U/L 11/08/2018 4:06 AM [facility] ALT 18 0 - 70 U/L 11/08/2018 4:06 AM [facility] AST 19 0 - 45 U/L 11/08/2018 4:06 AM [facility] Specimen Anatomical Collection Method Collection Time Receive d Time (Source) Location / / Volume Laterality Blood specimen 11/08/2018 3:40 AM 019 3:46 (specimen) CONSULTING PRACTICE MANAGER AM CONSULTING PRACTICE MANAGER Gurwinder Godoy MD LAB - BLOOD ORDERABLES Performing Organization Address City/State/ZIP Code Phon e Number M [facility] [address] [address] [facility] [address] [address], U [phone] (ABNORMAL) CBC (AM Draw) (11/08/2018 3:40 AM CONSULTING PRACTICE MANAGER) Analysis Performed At Patho logist Time Signature WBC 11.2 (H) 4.0 - 11.0 11/08/2018 [place] 10e9/L 3:50 AM [facility] RBC Count 3.62 (L) 4.4 - 5.9 11/08/2018 [place] 10e12/L 3:50 AM [facility] Hemoglobin 11.6 (L) 13.3 - 11/08/2018 [facility] 17.7 g/dL 3:50 AM [facility] Hematocrit 34.5 (L) 40.0 - 11/08/2018 [facility] 53.0 % 3:50 AM [facility] MCV 95 78 - 100 11/08/2018 [facility] fl 3:50 AM [facility] MCH 32.0 26.5 - 11/08/2018 [facility] 33.0 pg 3:50 AM [facility] MCHC 33.6 31.5 - 11/08/2018 [facility] 36.5 g/dL 3:50 AM [facility] RDW 13.9 10.0 - 11/08/2018 [facility] 15.0 % 3:50 AM [facility] Platelet Count 82 (L) 150 - 450 11/08/2018 [facility] 10e9/L 3:50 AM [facility] Specimen Anatomical Collection Method Collection Time Receive d Time (Source) Location / / Volume Laterality Blood specimen 11/08/2018 3:40 AM 019 3:46 (specimen) CONSULTING PRACTICE MANAGER AM CONSULTING PRACTICE MANAGER Gurwinder Godoy MD LAB - BLOOD ORDERABLES Performing Organization Address City/State/ZIP Code Phon e Number M [facility] [address] [address] [phone] [facility] [address] [address], U [phone] (ABNORMAL) CBC with platelets (11/07/2018 3:00 PM CONSULTING PRACTICE MANAGER) Analysis Performed At Patho logist Time Signature WBC 11.1 (H) 4.0 - 11.0 11/07/2018 [facility] 10e9/L 3:08 PM [facility] RBC Count 3.74 (L) 4.4 - 5.9 11/07/2018 [facility] 10e12/L 3:08 PM [facility] Hemoglobin 11.9 (L) 13.3 - 11/07/2018 [facility] 17.7 g/dL 3:08 PM [facility] Hematocrit 35.4 (L) 40.0 - 11/07/2018 [facility] 53.0 % 3:08 PM [facility] MCV 95 78 - 100 11/07/2018 [place] fl 3:08 PM [facility] MCH 31.8 26.5 - 11/07/2018 [facility] 33.0 pg 3:08 PM [facility] MCHC 33.6 31.5 - 11/07/2018 [facility] 36.5 g/dL 3:08 PM [facility] RDW 14.1 10.0 - 11/07/2018 [facility] 15.0 % 3:08 PM [facility] Platelet Count 87 (L) 150 - 450 11/07/2018 [place] 10e9/L 3:08 PM [facility] Specimen Anatomical Collection Method Collection Time Receive d Time (Source) Location / / Volume Laterality Blood specimen 11/07/2018 3:00 PM 019 3:05 (specimen) CONSULTING PRACTICE MANAGER PM CONSULTING PRACTICE MANAGER Bart Feliciano MD LAB - BLOOD ORDERABLES Performing Organization Address City/State/ZIP Code Phon e Number M [facility] [address] [place] [address] [phone] [facility] [address] [place] [address], [place] [phone] Magnesium (11/07/2018 9:50 AM CONSULTING PRACTICE MANAGER) P athologist Signature Magnesium 1.6 1.6 - 2.3 11/07/2018 [place] mg/dL 11:12 AM [facility] Specimen Anatomical Collection Method Collection Time Receive d Time (Source) Location / / Volume Laterality 11/07/2018 9:50 AM 9 CONSULTING PRACTICE MANAGER 10:04 AM CONSULTING PRACTICE MANAGER Gurwinder Godoy MD LAB - BLOOD ORDERABLES Performing Organization Address City/State/ZIP Code Phon e Number M [facility] [address] [place] [address] [facility] [address] [place] [address], [place] [phone] (ABNORMAL) CBC with platelets differential (11/07/2018 9:50 AM CONSULTING PRACTICE MANAGER) Patholo gist Method Time Signature WBC 10.4 4.0 - 11/07/2018 [facility] 11.0 10:13 AM [facility] 10e9/L [facility] RBC Count 3.63 (L) 4.4 - 5.9 [...] Absolute 1.5 (H) 0.0 - 1.3 11/07/2018 [place] Monocytes 10e9/L 10:37 AM [facility] Absolute 0.0 0.0 - 0.7 11/07/2018 [place] Eosinophils 10e9/L 10:37 AM [facility] Absolute 0.0 0.0 - 0.2 11/07/2018 [place] Basophils 10e9/L 10:37 AM [facility] Abs Immature 0.0 0 - 0.4 11/07/2018 [place] Granulocytes 10e9/L 10:37 AM [facility] Absolute 0.0 11/07/2018 [place] Nucleated RBC 10:37 AM [facility] Ovalocytes Slight 11/07/2018 [facility] 10:37 AM [facility] Platelet Automated 11/07/2018 [place] Estimate count 10:37 AM [facility] confirmed. [facility] Platelet morphology is normal. Specimen Anatomical Collection Method Collection Time Receive d Time (Source) Location / / Volume Laterality Blood specimen 11/07/2018 9:50 AM 019 (specimen) CONSULTING PRACTICE MANAGER 10:04 AM [facility] Gurwinder Godoy MD LAB - BLOOD ORDERABLES Performing Organization Address City/State/ZIP Code Phon e Number M [facility] [address] [address] [facility] [address] [address], [place] [phone] (ABNORMAL) Basic metabolic panel (11/07/2018 9:50 AM [facility]) Analysis Performed At Patho logist Time Signature Sodium 147 (H) 133 - 144 11/07/2018 [place] mmol/L 10:16 AM [facility] Potassium 4.1 3.4 - 5.3 11/07/2018 [place] mmol/L 10:16 AM [facility] Chloride 117 (H) 94 - 109 11/07/2018 [place] mmol/L 10:16 AM [facility] Carbon Dioxide 20 20 - 32 11/07/2018 [place] mmol/L 10:23 AM [facility] Anion Gap 10 3 - 14 11/07/2018 [place] mmol/L 10:23 AM [facility] Glucose 108 (H) 70 - 99 11/07/2018 [place] mg/dL 10:23 AM [facility] Urea Nitrogen 23 7 - 30 11/07/2018 [place] mg/dL 10:23 AM [facility] Creatinine 1.47 (H) 0.66 - 11/07/2018 [place] 1.25 mg/dL 10:23 AM [facility] GFR Estimate 46 (L) >60 11/07/2018 [place] mL/min/{1. 10:23 AM [facility] 73_m2} [facility] Comment: Non GFR Calc Starting 10/05/2018, serum creatinine ba sed estimated GFR (eGFR) will be calculated using the Chronic Kidney Dise [facility] Epidemiology Collaboration (CKD-EPI) equation. GFR Estimate If 53 (L) >60 mL/min/{1.73_m2} 11/07/2018 10 :23 AM [place] Black [facility] Comment: GFR Calc Starting 10/05/2018, serum creatinine ba sed estimated GFR (eGFR) will be calculated using the Chronic Kidney Dise [facility] Epidemiology Collaboration (CKD-EPI) equation. Calcium 8.2 (L) 8.5 - 10.1 mg/dL 11/07/2018 10:23 AM [facility] Specimen Anatomical Collection Method Collection Time Receive d Time (Source) Location / / Volume Laterality Blood specimen 11/07/2018 9:50 AM 019 (specimen) CONSULTING PRACTICE MANAGER 10:04 AM CONSULTING PRACTICE MANAGER Gurwinder Godoy MD LAB - BLOOD ORDERABLES Performing Organization Address City/State/ZIP Code Phon e Number M [facility] [address] [address] [phone] [facility] [address] [address], U [phone] (ABNORMAL) Glucose by meter (11/07/2018 7:44 AM CONSULTING PRACTICE MANAGER) P athologist Signature Glucose 112 (H) 70 - 99 11/07/2018 [facility] mg/dL 7:56 AM CONSULTING PRACTICE MANAGER TEST, GLUCOSE Specimen Anatomical Collection Method Collection Time Receive d Time (Source) Location / / Volume Laterality 11/07/2018 7:44 AM 9 7:56 CONSULTING PRACTICE MANAGER AM CONSULTING PRACTICE MANAGER Juan YUAN - CAROLYN POCT Performing Organization Address City/State/ZIP Code Phon e Number [facility] POINT OF CARE TEST, GLUCOSE POINT OF CARE TEST, GLUCOSE (ABNORMAL) Glucose by meter (11/07/2018 3:49 AM CONSULTING PRACTICE MANAGER) P athologist Signature Glucose 105 (H) 70 - 99 11/07/2018 [facility] mg/dL 4:01 AM CONSULTING PRACTICE MANAGER TEST, GLUCOSE Specimen Anatomical Collection Method Collection Time Receive d Time (Source) Location / / Volume Laterality 11/07/2018 3:49 AM 9 4:01 CONSULTING PRACTICE MANAGER AM CONSULTING PRACTICE MANAGER Juan YUAN - CAROLYN POCT Performing Organization Address City/[facility]/ZIP Code Phon e Number [facility] POINT OF CARE TEST, GLUCOSE POINT OF CARE TEST, GLUCOSE (ABNORMAL) Glucose by meter (11/07/2018 12:08 AM CONSULTING PRACTICE MANAGER) P athologist Signature Glucose 119 (H) 70 - 99 11/07/2018 [facility] mg/dL 12:19 AM CONSULTING PRACTICE MANAGER TEST, GLUCOSE Specimen Anatomical Collection Method Collection Time Receive d Time (Source) Location / / Volume Laterality 11/07/2018 12:08 11/07/2018 AM CONSULTING PRACTICE MANAGER 12:19 AM CONSULTING PRACTICE MANAGER Juan YUAN - CAROLYN POCT Performing Organization Address City/[facility]/ZIP Code Phon e Number [facility] POINT OF CARE TEST, GLUCOSE POINT OF CARE TEST, GLUCOSE (ABNORMAL) Glucose by meter (11/06/2018 7:53 PM CONSULTING PRACTICE MANAGER) P athologist Signature Glucose 116 (H) 70 - 99 11/06/2018 [facility] mg/dL 8:04 PM CONSULTING PRACTICE MANAGER TEST, GLUCOSE Specimen Anatomical Collection Method Collection Time Receive d Time (Source) Location / / Volume Laterality 11/06/2018 7:53 PM 9 8:04 CONSULTING PRACTICE MANAGER PM CONSULTING PRACTICE MANAGER Juan YUAN - BEFOUZIA POCT Performing Organization Address City/[facility]/ZIP Code Phon e Number [facility] POINT OF CARE TEST, GLUCOSE POINT OF CARE TEST, GLUCOSE (ABNORMAL) Glucose by meter (11/06/2018 11:02 AM CONSULTING PRACTICE MANAGER) P athologist Signature Glucose 109 (H) 70 - 99 11/06/2018 [facility] mg/dL 11:13 AM CONSULTING PRACTICE MANAGER TEST, GLUCOSE Specimen Anatomical Collection Method Collection Time Receive d Time (Source) Location / / Volume Laterality 11/06/2018 11:02 11/06/2018 AM CONSULTING PRACTICE MANAGER 11:13 AM CONSULTING PRACTICE MANAGER Juan Lewis MD LAB - BEAKER POCT Performing Organization Address City/State/ZIP Code Phon e Number [facility] POINT OF CARE TEST, GLUCOSE POINT OF CARE TEST, GLUCOSE (ABNORMAL) Glucose by meter (11/06/2018 7:38 AM CONSULTING PRACTICE MANAGER) P athologist Signature Glucose 104 (H) 70 - 99 11/06/2018 [facility] mg/dL 7:50 AM CONSULTING PRACTICE MANAGER TEST, GLUCOSE Specimen Anatomical Collection Method Collection Time Receive d Time (Source) Location / / Volume Laterality 11/06/2018 7:38 AM 9 7:50 CONSULTING PRACTICE MANAGER AM CONSULTING PRACTICE MANAGER Juan Lewis MD LAB - BEAKER POCT Performing Organization Address City/State/ZIP Code Phon e Number [facility] POINT OF CARE TEST, GLUCOSE POINT OF CARE TEST, GLUCOSE Lactic acid whole blood (11/06/2018 4:15 AM CONSULTING PRACTICE MANAGER) P athologist Signature Lactic Acid 1.4 0.7 - 2.0 11/06/2018 [facility] mmol/L 4:40 AM [facility] Specimen Anatomical Collection Method Collection Time Receive d Time (Source) Location / / Volume Laterality Blood specimen 11/06/2018 4:15 AM 019 4:25 (specimen) CONSULTING PRACTICE MANAGER AM CONSULTING PRACTICE MANAGER Bessy Mccray MD LAB - BLOOD ORDERABLES Performing Organization Address City/State/ZIP Code Phon e Number M [facility] [address] [address] [facility] [address] [address], U [phone] (ABNORMAL) Basic metabolic panel (11/06/2018 4:15 AM CONSULTING PRACTICE MANAGER) Analysis Performed At Patho logist Time Signature Sodium 142 133 - 144 11/06/2018 [facility] mmol/L 4:49 AM [facility] Potassium 4.4 3.4 - 5.3 11/06/2018 [place] mmol/L 4:49 AM [facility] Chloride 113 (H) 94 - 109 11/06/2018 [place] mmol/L 4:49 AM [facility] Carbon Dioxide 21 20 - 32 11/06/2018 [place] mmol/L 4:54 AM [facility] Anion Gap 8 3 - 14 11/06/2018 [place] mmol/L 4:54 AM [facility] Glucose 115 (H) 70 - 99 11/06/2018 [place] mg/dL 4:54 AM [facility] Urea Nitrogen 27 7 - 30 11/06/2018 [place] mg/dL 4:54 AM [facility] Creatinine 1.57 (H) 0.66 - 11/06/2018 [facility] 1.25 mg/dL 4:54 AM [facility] GFR Estimate 42 (L) >60 11/06/2018 [place] mL/min/{1. 4:54 AM [facility] 73_m2} [facility] Comment: Non GFR Calc Starting 10/05/2018, serum creatinine ba sed estimated GFR (eGFR) will be calculated using the Chronic Kidney Dise [facility] Epidemiology Collaboration (CKD-EPI) equation. GFR Estimate If 49 (L) >60 mL/min/{1.73_m2} 11/06/2018 4: 54 AM [facility] Comment: GFR Calc Starting 10/05/2018, serum creatinine ba sed estimated GFR (eGFR) will be calculated using the Chronic Kidney Dise [facility] Epidemiology Collaboration (CKD-EPI) equation. Calcium 7.8 (L) 8.5 - 10.1 mg/dL 11/06/2018 4:54 AM [facility] Specimen Anatomical Collection Method Collection Time Receive d Time (Source) Location / / Volume Laterality Blood specimen 11/06/2018 4:15 AM 019 4:25 (specimen) CONSULTING PRACTICE MANAGER AM [facility] Bessy Mccray MD LAB - BLOOD ORDERABLES Performing Organization Address City/State/ZIP Code Phon e Number M [facility] [address] [address] [facility] [address] [address], [place] [phone] (ABNORMAL) CBC with platelets (11/06/2018 4:15 AM CONSULTING PRACTICE MANAGER) Analysis Performed At Patho logist Time Signature WBC 12.9 (H) 4.0 - 11.0 11/06/2018 [facility] 10e9/L 4:45 AM [facility] RBC Count 3.93 (L) 4.4 - 5.9 11/06/2018 [facility] 10e12/L 4:45 AM [facility] Hemoglobin 12.5 (L) 13.3 - 11/06/2018 [facility] 17.7 g/dL 4:45 AM [facility] Hematocrit 36.8 (L) 40.0 - 11/06/2018 [facility] 53.0 % 4:45 AM [facility] MCV 94 78 - 100 11/06/2018 [facility] fl 4:45 AM [facility] MCH 31.8 26.5 - 11/06/2018 [facility] 33.0 pg 4:45 AM [facility] MCHC 34.0 31.5 - 11/06/2018 [facility] 36.5 g/dL 4:45 AM [facility] RDW 13.2 10.0 - 11/06/2018 [facility] 15.0 % 4:45 AM [facility] Platelet Count 153 150 - 450 11/06/2018 [facility] 10e9/L 4:45 AM [facility] Specimen Anatomical Collection Method Collection Time Receive d Time (Source) Location / / Volume Laterality Blood specimen 11/06/2018 4:15 AM 019 4:25 (specimen) CONSULTING PRACTICE MANAGER AM CONSULTING PRACTICE MANAGER Bessy Mccray MD LAB - BLOOD ORDERABLES Performing Organization Address City/State/ZIP Code Phon e Number M [facility] [address] [address] [facility] [address] [address], [place] [phone] (ABNORMAL) Glucose by meter (11/06/2018 1:12 AM CONSULTING PRACTICE MANAGER) P athologist Signature Glucose 126 (H) 70 - 99 11/06/2018 [facility] mg/dL 1:24 AM CONSULTING PRACTICE MANAGER TEST, GLUCOSE Specimen Anatomical Collection Method Collection Time Receive d Time (Source) Location / / Volume Laterality 11/06/2018 1:12 AM 9 1:24 CONSULTING PRACTICE MANAGER AM CONSULTING PRACTICE MANAGER Juan YUAN - BEAKER POCT Performing Organization Address City/State/ZIP Code Phon e Number [facility] POINT OF CARE TEST, GLUCOSE POINT OF CARE TEST, GLUCOSE Methicillin Resist/Sens S. aureus PCR (11/05/2018 11:41 PM CONSULTING PRACTICE MANAGER) Patholo gist Method Time Signature Specimen Nares 11/05/2018 [place] Description 11:45 PM CONSULTING PRACTICE MANAGER [facility] Methicillin Negative NEG^Negat 11/06/2018 [facility] Resist/Sens S. shin 2:36 AM [facility] aureus PCR [facility] Comment: MRSA Negative: SA Negative ??MRSA and St aphylococcus aureus target DNA not detected, presumed negative for MRSA and SA colonization or the number of bacteria present may be below the limit of detection for the assay. FDA approved assay performed using [employer](R) real-time PCR. Specimen (Source) Anatomical Collection Method Collection Time Re ceived Time Location / / Volume Laterality Nasal structure 11/05/2018 11:41 11/06/19 19 (body structure) PM CONSULTING PRACTICE MANAGER Bessy Mccray MD LAB - MICRO GENERAL ORDERABL ES Performing Organization Address City/[facility]/ZIP Code Phon e Number [facility] [address] [place] [address] [facility] [address] [place] [address], U [phone] (ABNORMAL) Glucose by meter (11/05/2018 8:16 PM CONSULTING PRACTICE MANAGER) P athologist Signature Glucose 128 (H) 70 - 99 11/05/2018 [facility] mg/dL 8:28 PM CONSULTING PRACTICE MANAGER TEST, GLUCOSE Specimen Anatomical Collection Method Collection Time Receive d Time (Source) Location / / Volume Laterality 11/05/2018 8:16 PM 9 8:28 CONSULTING PRACTICE MANAGER PM CONSULTING PRACTICE MANAGER Juan YUAN - BEFOUZIA POCT Performing Organization Address City/State/ZIP Code Phon e Number [facility] POINT OF CARE TEST, GLUCOSE POINT OF CARE TEST, GLUCOSE (ABNORMAL) Glucose by meter (11/05/2018 4:39 PM CONSULTING PRACTICE MANAGER) P athologist Signature Glucose 124 (H) 70 - 99 11/05/2018 [facility] mg/dL 4:50 PM CONSULTING PRACTICE MANAGER TEST, GLUCOSE Specimen Anatomical Collection Method Collection Time Receive d Time (Source) Location / / Volume Laterality 11/05/2018 4:39 PM 9 4:50 CONSULTING PRACTICE MANAGER PM CONSULTING PRACTICE MANAGER Juan Lewis MD LAB - BEAKER POCT Performing Organization Address City/State/ZIP Code Phon e Number [facility] POINT OF CARE TEST, GLUCOSE POINT OF CARE TEST, GLUCOSE (ABNORMAL) CBC with platelets (11/05/2018 4:35 PM CONSULTING PRACTICE MANAGER) Analysis Performed At Patho logist Time Signature WBC 7.3 4.0 - 11.0 11/05/2018 [facility] 10e9/L 5:22 PM [facility] RBC Count 4.35 (L) 4.4 - 5.9 11/05/2018 [facility] 10e12/L 5:22 PM [facility] Hemoglobin 13.7 13.3 - 11/05/2018 [facility] 17.7 g/dL 5:22 PM [facility] Hematocrit 40.9 40.0 - 11/05/2018 [facility] 53.0 % 5:22 PM [facility] MCV 94 78 - 100 11/05/2018 [facility] fl 5:22 PM [facility] MCH 31.5 26.5 - 11/05/2018 [facility] 33.0 pg 5:22 PM [facility] MCHC 33.5 31.5 - 11/05/2018 [facility] 36.5 g/dL 5:22 PM [facility] RDW 13.1 10.0 - 11/05/2018 [facility] 15.0 % 5:22 PM [facility] Platelet Count 108 (L) 150 - 450 11/05/2018 [facility] 10e9/L 5:22 PM [facility] Specimen Anatomical Collection Method Collection Time Receive d Time (Source) Location / / Volume Laterality Blood specimen 11/05/2018 4:35 PM 019 5:17 (specimen) CONSULTING PRACTICE MANAGER PM CONSULTING PRACTICE MANAGER Bessy Mccray MD LAB - BLOOD ORDERABLES Performing Organization Address City/State/ZIP Code Phon e Number M [facility] [address] [place] [address] [phone] [facility] [address] [place] [address], [place] [phone] INR (11/05/2018 4:35 PM CONSULTING PRACTICE MANAGER) P athologist Signature INR 1.03 0.86 - 1.14 11/05/2018 [place] 5:33 PM [facility] Specimen Anatomical Collection Method Collection Time Receive d Time (Source) Location / / Volume Laterality Blood specimen 11/05/2018 4:35 PM 019 5:17 (specimen) CONSULTING PRACTICE MANAGER PM CONSULTING PRACTICE MANAGER Bessy Mccray MD LAB - BLOOD ORDERABLES Performing Organization Address City/State/ZIP Code Phon e Number M [facility] [address] [place] [address] [phone] [facility] [address] [place] [address], [place] [phone] Lactic acid whole blood (11/05/2018 4:35 PM CONSULTING PRACTICE MANAGER) P athologist Signature Lactic Acid 1.0 0.7 - 2.0 11/05/2018 [place] mmol/L 5:57 PM [facility] Specimen Anatomical Collection Method Collection Time Receive d Time (Source) Location / / Volume Laterality Blood specimen 11/05/2018 4:35 PM 019 5:18 (specimen) CONSULTING PRACTICE MANAGER PM CONSULTING PRACTICE MANAGER Bessy Mccray MD LAB - BLOOD ORDERABLES Performing Organization Address City/State/ZIP Code Phon e Number [facility] [address] [place] [address] [phone] [facility] [address] [place] [address], [place] [phone] (ABNORMAL) Basic metabolic panel (11/05/2018 4:35 PM CONSULTING PRACTICE MANAGER) Analysis Performed At Patho logist Time Signature Sodium 143 133 - 144 11/05/2018 [place] mmol/L 5:38 PM [facility] Potassium 4.3 3.4 - 5.3 11/05/2018 [facility] mmol/L 5:38 PM [facility] Chloride 113 (H) 94 - 109 11/05/2018 [facility] mmol/L 5:38 PM [facility] Carbon Dioxide 22 20 - 32 11/05/2018 [facility] mmol/L 5:43 PM [facility] Anion Gap 8 3 - 14 11/05/2018 [facility] mmol/L 5:43 PM [facility] Glucose 121 (H) 70 - 99 11/05/2018 [facility] mg/dL 5:43 PM [facility] Urea Nitrogen 24 7 - 30 11/05/2018 [facility] mg/dL 5:43 PM [facility] Creatinine 1.30 (H) 0.66 - 11/05/2018 [facility] 1.25 mg/dL 5:43 PM [facility] GFR Estimate 53 (L) >60 11/05/2018 [place] mL/min/{1. 5:43 PM [facility] 73_m2} [facility] Comment: Non GFR Calc Starting 10/05/2018, serum creatinine ba sed estimated GFR (eGFR) will be calculated using the Chronic Kidney Dise [facility] Epidemiology Collaboration (CKD-EPI) equation. GFR Estimate If 61 >60 mL/min/{1.73_m2} 11/05/2018 5: 43 PM [facility] Comment: GFR Calc Starting 10/05/2018, serum creatinine ba sed estimated GFR (eGFR) will be calculated using the Chronic Kidney Dise [facility] Epidemiology Collaboration (CKD-EPI) equation. Calcium 8.6 8.5 - 10.1 mg/dL 11/05/2018 5:43 PM [facility] Specimen Anatomical Collection Method Collection Time Receive d Time (Source) Location / / Volume Laterality Blood specimen 11/05/2018 4:35 PM 019 5:17 (specimen) CONSULTING PRACTICE MANAGER PM [facility] Bessy Mccray MD LAB - BLOOD ORDERABLES Performing Organization Address City/State/ZIP Code Phon e Number M [facility] [address] [address] [phone] [facility] [address] [address], U [phone] IR Thoracic Endovascular Stent Graft (11/05/2018 12:09 PM CONSULTING PRACTICE MANAGER) Anatomical Region Laterality Modality Chest Radio Fluoroscopy Specimen (Source) Anatomical Location Collection Method / Collectio n Time Received Time / Laterality Volume Impressions 11/06/2018 3:33 PM CONSULTING PRACTICE MANAGER IMPRESSION: Successful deployment in 2 components for [...] KANNAN MORSE MD Narrative 11/06/2018 3:33 PM CONSULTING PRACTICE MANAGER INTERVENTIONAL RADIOLOGY THORACIC ENDOVASCULAR STENT GRAFT ??11/05/2018 [...] cm. Plan is for endovascular repair with Moov cc. Valiant Navion stent graft system. TECHNIQUE: Please [...] tion. Over a series of maneuvers, 6 [place] vascular sheath was placed. From left groin [...] cm. Plan is for endovascular repair with Moov cc. Valiant Navion stent graft system. TECHNIQUE: Please [...] tion. Over a series of maneuvers, 6 [place] vascular sheath was placed. From left groin [...] Drain Placement w Fluoro (11/05/2018 9:10 AM CONSULTING PRACTICE MANAGER) Anatomical Region Laterality Modality Spine Radio Fluoroscopy Specimen (Source) Anatomical Location Collection Method / Collectio n Time Received Time / Laterality Volume Narrative 11/05/2018 9:19 AM CONSULTING PRACTICE MANAGER [facility] RADIOLOGY INTERVENTIONAL NEURORADIOLOGY PROCEDURAL NOTE [...] codes included for physician referen ce only: [id number] MISSAEL GARCIA MD Procedure Note Missael Garcia MD - 11/05/2018For matting of this note might be different from the original. [facility] RADIOLOGY INTERVENTIONAL NEURORADIOLOGY PROCEDURAL NOTE [...] codes included for physician referen ce only: [id number] MISSAEL GARCIA MD Butch Brown MD IMG IR ORDERABLES EKG 12-lead, tracing only (11/05/2018 6:58 AM CONSULTING PRACTICE MANAGER) [facility] gist Method Time Signature Interpretation ECG Click View RADIOLOGY Image link RESULTS to view waveform and result Specimen (Source) Anatomical Collection Method Collection Time Re ceived Time Location / / Volume Laterality 11/05/2018 6:58 AM CONSULTING PRACTICE MANAGER Juan Lewis MD ECG ORDERABLES Performing Organization Address City/State/ZIP Code Phon e Number RADIOLOGY RESULTS Potassium (11/05/2018 6:55 AM CONSULTING PRACTICE MANAGER) athologist Signature Potassium 4.3 3.4 - 5.3 11/05/2018 [facility] mmol/L 7:15 AM CONSULTING PRACTICE MANAGER [facility] Specimen Anatomical Collection Method Collection Time Receive d Time (Source) Location / / Volume Laterality Blood specimen 11/05/2018 6:55 AM 019 6:56 (specimen) CONSULTING PRACTICE MANAGER AM CONSULTING PRACTICE MANAGER Zakia Tobin MD LAB - BLOOD ORDERABLES Performing Organization Address City/State/ZIP Code Phon e Number [facility] [address] [place] [address] [facility] [address] [place] [address], [place] [phone] Lipid panel (11/05/2018 6:55 AM CONSULTING PRACTICE MANAGER) Analysis Performed At Patho logist Time Signature Cholesterol 128 <200 mg/dL 11/05/2018 [facility] 7:20 AM [facility] Triglycerides 125 <150 mg/dL 11/05/2018 [facility] 7:21 AM [facility] HDL Cholesterol 59 >39 mg/dL 11/05/2018 [facility] 7:23 AM [facility] LDL Cholesterol 44 <100 mg/dL 11/05/2018 [facility] Calculated 7:23 AM [facility] Comment: Desirable: <100 mg/dl Non HDL Cholesterol 69 <130 mg/dL 11/05/2018 7:23 AM [facility] Specimen Anatomical Collection Method Collection Time Receive d Time (Source) Location / / Volume Laterality Blood specimen 11/05/2018 6:55 AM 019 6:56 (specimen) CONSULTING PRACTICE MANAGER AM CONSULTING PRACTICE MANAGER Juan Lewis MD LAB - BLOOD ORDERABLES Performing Organization Address City/State/ZIP Code Phon e Number [facility] [address] [place] [address] [facility] [address] [place] [address], [place] [phone] Hemoglobin A1c (11/05/2018 6:55 AM CONSULTING PRACTICE MANAGER) P athologist Signature Hemoglobin A1C 5.2 0 - 5.6 % 11/05/2018 [facility] 7:30 AM [facility] Comment: Normal <5.7% Prediabetes 5.7-6.4% ??Diab etes 6.5% or higher - adopted from ADA consensus guidelines. Specimen Anatomical Collection Method Collection Time Receive d Time (Source) Location / / Volume Laterality Blood specimen 11/05/2018 6:55 AM 019 6:56 (specimen) CONSULTING PRACTICE MANAGER AM CONSULTING PRACTICE MANAGER Juan Lewis MD LAB - BLOOD ORDERABLES Performing Organization Address City/State/ZIP Code Phon e Number [facility] [address] [place] [address] [facility] [address] [place] [address], [place] [phone] (ABNORMAL) Creatinine (11/05/2018 6:55 AM CONSULTING PRACTICE MANAGER) athologist Signature Creatinine 1.52 (H) 0.66 - 11/05/2018 [place] 1.25 mg/dL 7:20 AM [facility] GFR Estimate 44 (L) >60 11/05/2018 [place] mL/min/{1. 7:20 AM [facility] 73_m2} [facility] Comment: Non GFR Calc Starting 10/05/2018, serum creatinine ba sed estimated GFR (eGFR) will be calculated using the Chronic Kidney Dise [facility] Epidemiology Collaboration (CKD-EPI) equation. GFR Estimate If 51 (L) >60 mL/min/{1.73_m2} 11/05/2018 7: 20 AM [facility] Comment: GFR Calc Starting 10/05/2018, serum creatinine ba sed estimated GFR (eGFR) will be calculated using the Chronic Kidney Dise [facility] Epidemiology Collaboration (CKD-EPI) equation. Specimen Anatomical Collection Method Collection Time Receive d Time (Source) Location / / Volume Laterality Blood specimen 11/05/2018 6:55 AM 019 6:56 (specimen) CONSULTING PRACTICE MANAGER AM CONSULTING PRACTICE MANAGER Juan Lewis MD LAB - BLOOD ORDERABLES Performing Organization Address City/State/ZIP Code Phon e Number [facility] [address] [place] [address] [facility] [address] [address], [place] [phone] XR Chest Port 1 View (11/05/2018 6:40 AM CONSULTING PRACTICE MANAGER) Anatomical Region Laterality Modality Chest Digital Radiography Specimen (Source) Anatomical Location Collection Method / Collectio n Time Received Time / Laterality Volume Impressions 11/05/2018 6:58 AM CONSULTING PRACTICE MANAGER IMPRESSION: No acute abnormality. TORI SANTIZO MD Narrative 11/05/2018 6:58 AM CONSULTING PRACTICE MANAGER XR CHEST PORTABLE 1 VIEW ?? 11/05/2018 [...] CARDIAC - HIM SCAN (09/24/2018 12:00 AM CONSULTING PRACTICE MANAGER) Specimen (Source) Anatomical Location Collection Method / [...] tablet 975 mg Given 11/08/2018 11:04 PM CONSULTING PRACTICE MANAGER 975 mg 975 mg, Oral, EVERY 6 HOURS PRN, mild pain, fever, Starting on Thu11/05/18 at 1827, Maximum acetaminophen dose from all sources = 75 mg/kg/day not to exceed 4 grams/day. Given 11/08/2018 12:37 PM CONSULTING PRACTICE MANAGER 975 mg Given 11/07/2018 11:03 AM CONSULTING PRACTICE MANAGER 975 mg alum & mag hydroxide-simethicone (MYLANTA Given 11/08/2018 2:48 AM CONSULTING PRACTICE MANAGER 30 mLs ES/MAALOX ES) suspension 30 mL 30 mL, Oral, EVERY 4 HOURS PRN, indigestion, Starting on Thu11/05/18 at 1510, Shake well. apixaban ANTICOAGULANT (ELIQUIS) tablet 2.5 Given 10/20 12:04 PM CONSULTING PRACTICE MANAGER 2.5 mg mg 2.5 mg, Oral, 2 TIMES DAILY, First dose on Thu11/09/18 at 1115 atorvastatin (LIPITOR) tablet 40 mg Given 11/08/2018 8:20 PM CONSULTING PRACTICE MANAGER 40 mg 40 mg, Oral, EVERY EVENING, First dose on Thu11/05/18 at 2000 Given 11/07/2018 7:49 PM CONSULTING PRACTICE MANAGER 40 mg Given 11/06/2018 9:16 PM CONSULTING PRACTICE MANAGER 40 mg calcium carbonate (TUMS) chewable tablet Given 11/07/2018 10 :34 PM CONSULTING PRACTICE MANAGER 1,000 mg 1,000 mg 1,000 mg, Oral, EVERY 2 HOURS PRN, heartburn, Starting on Thu11/06/18 at 0408, Do not give if calcium level greater than 10 mg/dL. Given 11/07/2018 12:05 AM CONSULTING PRACTICE MANAGER 1,000 mg Given 11/06/2018 4:50 AM CONSULTING PRACTICE MANAGER 1,000 mg clindamycin (CLEOCIN) infusion 900 New Bag 11/06/2018 2:05 AM CONSULTING PRACTICE MANAGER 900 mg 50 mL/hr mg Routine, 900 mg, Intravenous, EVERY 8 HOURS, First dose on Thu11/05/18 at 1800, For 2 doses, Indications: Perioperative Pharmacoprophylaxis, Post-procedure New Bag 11/05/2018 6:08 PM CONSULTING PRACTICE MANAGER 900 mg 50 mL/hr cyclobenzaprine (FLEXERIL) tablet 5-10 m g Given 11/08/2018 3:58 AM CONSULTING PRACTICE MANAGER 10 mg 5-10 mg, Oral, 3 TIMES DAILY PRN, muscle spasms, Starting on Thu11/07/18 at 1153 Given 11/07/2018 2:26 PM CONSULTING PRACTICE MANAGER 5 mg dextrose 5% and 0.45% NaCl infusion New Bag 11/08/2018 6:44 PM CONSULTING PRACTICE MANAGER 75 mL/hr at 75 mL/hr, Intravenous, CONTINUOUS, Starting on Thu11/07/18 at 1200, Until Thu11/09/18 at 0731 Restarted 11/08/2018 4:21 PM CONSULTING PRACTICE MANAGER 75 mL/hr New Bag 11/08/2018 7:35 AM CONSULTING PRACTICE MANAGER 100 mL/hr diphenhydrAMINE (BENADRYL) injection 12. 5 mg 12.5 mg, Intravenous, EVERY 6 HOURS PRN, itching, Only give if patient unable to take PO., Starting on Thu11/05/18 at 151 0, Caution to be used when administering multiple RESEARCH LABORATORY SPECIALIST depressing meds within a sh ort time frame. For ordered IV doses 1-50 mg, give IV Push undiluted. Give each 25 mg over a minimum of 1 minute. Extend in non-emergency diphenhydrAMINE (BENADRYL) solution 12.5 mg 12.5 mg, Oral, EVERY 6 HOURS PRN, itchin g, Starting on Thu11/05/18 at 1510, Caution to be used when administering multiple RESEARCH LABORATORY SPECIALIST depressing meds within a short time frame. fentaNYL (PF) (SUBLIMAZE) 100 MCG/2ML in jection Starting on Thu11/05/18 at 0841, For 1 d Rob thomas Callie : cabinet override For ordered IV doses 1-100 mcg give IV Push undiluted over a minimum of 3-5 minutes. fentaNYL (PF) (SUBLIMAZE) injection 100 mcg Given 11/05/2018 7:45 AM CONSULTING PRACTICE MANAGER 50 mcg 100 mcg, Intravenous, ONCE, Administer over 3-5 Minutes, On Thu11/05/18 at 0745, For 1 dose, For ordered IV doses 1-100 mcg give IV Push undiluted over a minimum of 3-5 minutes., Pre-procedure Given 11/05/2018 7:31 AM CONSULTING PRACTICE MANAGER 50 mcg fentaNYL (PF) (SUBLIMAZE) injection 25-5 0 mcg Given 11/05/2018 8:48 AM CONSULTING PRACTICE MANAGER 50 mcg 25-50 mcg, Intravenous, EVERY 5 [...] 50 m cg Given 11/05/2018 1:33 PM CONSULTING PRACTICE MANAGER 50 mcg 50 mcg, Intravenous, EVERY 5 MIN PRN, moderate to severe pain, Administer over 3-5 Minutes, Starting on Thu11/05/18 at 1333, For ordered IV doses 1-100 mcg give IV Push undiluted over a minimum of 3-5 minutes., PACU hydrALAZINE (APRESOLINE) injection 10-20 mg Given 11/08/2018 7:03 PM CONSULTING PRACTICE MANAGER 10 mg 10-20 mg, Intravenous, EVERY 1 [...] over 1 minute. Given 11/08/2018 11:51 AM CONSULTING PRACTICE MANAGER 20 mg Given 11/08/2018 3:36 AM CONSULTING PRACTICE MANAGER 20 mg labetalol (NORMODYNE/TRANDATE) 5 MG/ML i njection Starting on Thu11/05/18 at 1521, For 1 d Cisco thomas Doreen : cabinet override For ordered doses up to 80 mg, give IV Push undiluted. Give each 20 mg over 2 minutes. labetalol (NORMODYNE/TRANDATE) injection 10 mg Given 11/05/2018 3:43 PM CONSULTING PRACTICE MANAGER 10 mg 10 mg, Intravenous, EVERY 10 [...] 2 minutes., Post-procedure Given 11/05/2018 3:25 PM CONSULTING PRACTICE MANAGER 10 mg labetalol (NORMODYNE/TRANDATE) injection 10 mg Given 11/05/2018 1:45 PM CONSULTING PRACTICE MANAGER 10 mg 10 mg, Intravenous, ONCE, Administer over 2-8 Minutes, On Thu11/05/18 at 1400, For 1 dose, For ordered doses up to 80 mg, give IV Push undiluted. Give each 20 mg over 2 minutes., PACU labetalol (NORMODYNE/TRANDATE) injection 10-20 Given 0 11/08/2018 3:03 AM CONSULTING PRACTICE MANAGER 10 mg mg 10-20 mg, Intravenous, EVERY [...] over 2 minutes. Given 11/08/2018 2:33 AM CONSULTING PRACTICE MANAGER 20 mg Given 11/07/2018 10:35 PM CONSULTING PRACTICE MANAGER 10 mg labetalol (NORMODYNE/TRANDATE) injection 20 Given 11/05/2018 12:37 PM CONSULTING PRACTICE MANAGER 10 mg mg 20 mg, Intravenous, ONCE, Administer over 2-8 Minutes, On Thu11/05/18 at 1315, For 1 dose, For ordered doses up to 80 mg, give IV Push undiluted. Give each 20 mg over 2 minutes., Pre-procedure labetalol (NORMODYNE/TRANDATE) injection 5 mg Given 11/05/2018 1:13 PM CONSULTING PRACTICE MANAGER 5 mg 5 mg, Intravenous, ONCE, Administer over 2-8 Minutes, On Thu11/05/18 at 1315, For 1 dose, For ordered doses up to 80 mg, give IV Push undiluted. Give each 20 mg over 2 minutes., PACU lactated ringers infusion New Bag 11/05/2018 6:52 AM CONSULTING PRACTICE MANAGER 25 mL/hr at 25 mL/hr, Intravenous, CONTINUOUS, IF patient NOT on dialysis., Pre-procedure, Starting on Thu11/05/18 at 0645, Until Thu11/05/18 at 0836 lidocaine 1 % 1 mL Given 11/05/2018 6:53 AM CONSULTING PRACTICE MANAGER 0.3 mLs 1 mL, Other, EVERY 1 [...] 2 5 mg Given 11/08/2018 8:22 AM CONSULTING PRACTICE MANAGER 25 mg 25 mg, Oral, 2 TIMES DAILY, First dose (after last modification) on Thu11/05/18 at 1615 Given 11/07/2018 7:49 PM CONSULTING PRACTICE MANAGER 25 mg Given 11/07/2018 11:14 AM CONSULTING PRACTICE MANAGER 25 mg metoprolol tartrate (LOPRESSOR) tablet 5 0 mg Given 11/09/2018 8:28 AM CONSULTING PRACTICE MANAGER 50 mg 50 mg, Oral, 2 TIMES DAILY, First dose on Thu11/08/18 at 2100, Hold for SBP < 90, HR < 50 Given 11/08/2018 8:20 PM CONSULTING PRACTICE MANAGER 50 mg midazolam (VERSED) 1 MG/ML injection Starting on Thu11/05/18 at 0841, For 1 d Rob thomas Callie : cabinet override For ordered IV doses 0.1-2.5 mg give IV Push slowly titrat ed over a minimum of 2 minutes. Dilute each 1mg in 4mL of NS. midazolam (VERSED) injection 0.5-1 mg Given 11/05/2018 8:48 AM CONSULTING PRACTICE MANAGER 1 mg 0.5-1 mg, Intravenous, Administer over [...] injection 4 mg Given 11/05/2018 7:53 AM CONSULTING PRACTICE MANAGER 1 mg 4 mg, Intravenous, Administer over 2 Minutes, EVERY 4 MIN PRN, anxiety, Starting on Thu11/05/18 at 0732, For ordered IV doses 0.1-2.5 mg give IV Push slowly titrated over a minimum of 2 minutes. Dilute each 1mg in 4mL of NS., Pre-procedure Given 11/05/2018 7:49 AM CONSULTING PRACTICE MANAGER 1 mg Given 11/05/2018 7:38 AM CONSULTING PRACTICE MANAGER 1 mg omeprazole (priLOSEC) CR capsule 20 mg Given 11/09/2018 6:33 AM CONSULTING PRACTICE MANAGER 20 mg 20 mg, Oral, EVERY MORNING BEFORE BREAKFAST, First dose on 11/07/18 at 2345 Given 11/08/2018 8:22 AM CONSULTING PRACTICE MANAGER 20 mg Given 11/07/2018 11:48 PM CONSULTING PRACTICE MANAGER 20 mg ondansetron (ZOFRAN) injection 4 mg Given 11/07/2018 11:48 PM CONSULTING PRACTICE MANAGER 4 mg 4 mg, Intravenous, EVERY 6 [...] half-tab 2.5-5 mg Given 11/08/2018 12:37 PM CONSULTING PRACTICE MANAGER 5 mg 2.5-5 mg, Oral, EVERY 4 HOURS PRN, moderate to severe pain, Starting on Thu11/05/18 at 1724 Given 11/08/2018 6:19 AM CONSULTING PRACTICE MANAGER 5 mg Given 11/07/2018 7:49 PM CONSULTING PRACTICE MANAGER 5 mg phenylephrine Rate/Dose Change 11/06/2018 6:45 0.3 mcg/kg/min 7.6 mL/ hr (OSIEL-SYNEPHRINE) 50 mg PM CONSULTING PRACTICE MANAGER in sodium chloride 0.9 % 250 mL [...] goals. Vesicant. Rate/Dose Change 11/06/2018 6:15 PM CONSULTING PRACTICE MANAGER 0.5 mcg/kg/min 12.6 mL/hr Rate/Dose Change 11/06/2018 5:34 PM CONSULTING PRACTICE MANAGER 0.7 mcg/kg/min 17.7 mL/hr sennosides (SENOKOT) tablet 8.6 mg Given 11/08/2018 3:36 AM CONSULTING PRACTICE MANAGER 8.6 mg 8.6 mg, Oral, 2 TIMES DAILY PRN, constipation, Starting on Thu11/08/18 at 0250 sodium chloride (PF) 0.9% PF flush 3 mL Given 11/07/2018 4:12 PM CONSULTING PRACTICE MANAGER 3 mLs 3 mL, Intracatheter, EVERY 8 HOURS, First dose on Thu11/05/18 at 1515, And Q1H PRN, to lock peripheral IV dormant line. Given 11/07/2018 11:34 AM CONSULTING PRACTICE MANAGER 3 mLs Given 11/07/2018 12:06 AM CONSULTING PRACTICE MANAGER 10 mLs sodium chloride 0.9% infusion New Bag 11/06/2018 7:48 PM CONSULTING PRACTICE MANAGER 100 mL/hr at 100 mL/hr, Intravenous, CONTINUOUS, For patient on renal dialysis. Saline lock after 1 liter if taking PO fluids., Post-procedure, Starting on Thu11/05/18 at 1515, Until Thu11/08/18 at 1245 New Bag 11/06/2018 12:08 PM CONSULTING PRACTICE MANAGER 100 mL/hr New Bag 11/06/2018 2:33 AM CONSULTING PRACTICE MANAGER 100 mL/hr terazosin (HYTRIN) capsule 5 mg Given 11/08/2018 9:21 PM CONSULTING PRACTICE MANAGER 5 mg 5 mg, Oral, AT BEDTIME, First dose on Thu11/05/18 at 2200 documented in this encounter Active and Recently Administered Medications Times are shown in CONSULTING PRACTICE MANAGER. Scheduled Medication Order 11/07/2018 11/08/2018 11/09/2018 apixaban [...] RN) at 75 mL/hr, Intravenous, CONTINUOUS, [facility] 11/07/18 at 1200, Until Tu11/09/18 at [...] Caution to be used when administering multiple RESEARCH LABORATORY SPECIALIST depressing meds within a short time frame. For ordered IV doses 1-50 m g, give IV Push undiluted. Give each 25mg over a minimum of 1 minute. Extend in non-emergency diphenhydrAMINE (BENADRYL) solution 12.5 mg(Linked Group 1) 12.5 mg, Oral, EVERY 6 HOURS PRN, itchin g, Starting 11/05/18 at 1510, Caution to be used when administering multiple RESEARCH LABORATORY SPECIALIST depressing meds within a short time frame. [...] (ZOFRAN-ODT) ODT tab 4 mg(Linked Group 2) 6504 (See Alternative - Provider: Kristy Castañeda, JOSE) [...]
Caution to be used when administering multiple RESEARCH LABORATORY SPECIALIST depressing meds within a short time frame.
Or diphenhydrAMINE (BENADRYL) injection 12.5 mgJump to med 12.5 mg, Intravenous, EVERY 6 HOURS PRN, itching, Only give if patient unable to take PO., Starting Thu11/05/18 at 1510
Caution to be used when administering multiple RESEARCH LABORATORY SPECIALIST depressing meds within a short time frame. [...] of this encounter Care Teams Cut Off Man Relationship Specialty Start Date End [facility] [place] [facility] - General 05/12/[address] [place] [id number] documented as of this encounter
--- OUTSIDE RECORDS SUMMARY | 2022-08-15 11:28 | XMS_ITS | Encounter Summary ---
:1940 Author Organization [facility] Address [address] [place] [address] Care Team Providers Name Role Phone Clinic, [facility] Primary Care Provider [phone] Reason for Visit Diagnostic Imaging CT Scan (Routine) - Closed Specialty Diagnoses / Procedures Referred By Contact Refer red To Contact Radiology. Diagnoses Thoracic aortic aneurysm Butch Brown MD Ct Scan Procedures CT Chest Abdomen Pelvis w/o Contrast CTA Chest Abdomen Pelvis w Contrast [address] [place] [address] [place] [address] Referral ID Status Reason Start Date Expiration Date Visits Requ ested Visits Authorized [id number] Closed 11/26/2018 11/26/2019 1 1 Encounter Details Date Type Department Care Team Description 05/17/2019 Hospital Encounter [facility] Butch Brown Thor acic aortic [facility] MD [place] aneurysm (H) [address] [place] [id number] [address] [place] [id number] Social History Tobacco Use Types Packs/Day Years [...] CDT 10:23 AM CDT Butch Brown MD [facility] Performing Organization [...] documented as of this encounter Care Teams Breaker Unit Assembler Relationship Specialty Start Date End Date [facility], [facility] PCP - General 05/12/[address] [place] [id number] documented as of this encounter
--- OUTSIDE RECORDS SUMMARY | 2022-08-15 11:28 | XMS_ITS | Encounter Summary ---
:1940 Author Organization [place] Address [address] [place] [id number] Care Team Providers Name Role Phone Kehinde Portillo Primary Care Provider [phone] Encounter Details Date Type Department Care Team [...] as of this encounter Care Teams Group Art Supervisor Relationship Specialty [facility] - [facility] [place] [id number] documented as of this encounter
--- OUTSIDE RECORDS SUMMARY | 2022-08-15 11:28 | XMS_ITS | Encounter Summary ---
:1940 Author Organization [place] Address [address] [facility] 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 Butch Brown Thoracic a ortic Vascular Clinic Félix Jay MD aneurysm without [address] ru pture (H) (Primary [address] Dx) [place] [address] [place] [id number] Social History Tobacco Use Types Packs/Day Years [...] Comments Blood Pressure 146/70 11/26/2018 10:47 AM TEMPLATE CHECKER Pulse 66 11/26/2018 10:47 AM TEMPLATE CHECKER Temperature - - Respiratory Rate - - Oxygen Saturation - - Inhaled Oxygen Concentration - - Weight 87.5 kg (193 lb) 11/26/2018 10:47 AM TEMPLATE CHECKER Height 167.6 cm (5' 6) 11/26/2018 10:47 AM TEMPLATE CHECKER Body Mass Index 31.15 11/26/2018 10:47 AM TEMPLATE CHECKER documented in this encounter Patient Instructions Patient InstructionsVon Landeros CMA - 11/26/2018 11:00 AM TEMPLATE CHECKER Patient to follow up with Primary Care provider regarding elevated blood pressure. LATE CHECKER documented in this encounter Progress Notes Von [...] kg). Pain Score: Data Unavailable Von Landeros LATE CHECKER Butch Brown MD - 11/26/2018 11:00 AM [...] 5.0-5.5 cm. Butch Brown MD Vascular Surgery LATE CHECKER documented in this encounter Plan of [...] documented as of this encounter Care Teams Bit Grinder Relationship Specialty Start Date End Date Kehinde Portillofield PCP - General 05/12/[address] [place], [place] [id number] documented as of this encounter
--- OUTSIDE RECORDS SUMMARY | 2022-08-15 11:28 | XMS_ITS | Encounter Summary ---
:1940 Author Organization [place] Address [address] [place] [address] Care Team Providers Name Role Phone Kehinde Portillo Primary Care Provider [phone] Encounter Details Date Type Department Care Team [...] documented as of this encounter Care Teams Property Damage Claims Adjustor Relationship Specialty Start Date End Date [facility], Kehinde Santos PCP - General 05/12/[address] [place] [address] documented as of this encounter
--- OUTSIDE RECORDS SUMMARY | 2022-08-15 11:28 | XMS_ITS | Encounter Summary ---
:1940 Author Organization [place] Address [address] [facility] [place] [address] Care Team Providers Name Role Phone [facility], [facility] Primary Care Provider [phone] Reason for Referral Diagnostic Imaging CT Scan - Closed Specialty Diagnoses / Procedures Referred By Contact Refer red To Contact Radiology. Diagnoses Thoracic aortic aneurysm Juan Lewis MD Ct Scan Procedures CTA Chest Abdomen Pelvis w Contrast [address] [place] [address] [place] [address] Referral ID Status Reason Start Date Expiration Date Visits Requ ested Visits Authorized [id number] Closed 11/12/2018 11/12/2019 1 1 KLAYER SUPERVISOR Encounter Details Date Type Department Care Team Description 11/12/2018 [facility] Only [facility] Juan Lewis Thoracic aortic Vascular Clinic Félix Nava MD aneurysm (H) (Primary [address] Dx ) [address] [place] [address] [place] [id number] Social History Tobacco Use Types Packs/Day Years [...] Abdomen Pelvis w Contrast (11/26/2018 9:03 AM BRICKLAYER SUPERVISOR) Anatomical Region Laterality Modality Lower Extremity, SUBRAD IR PROCEDURE, UMP CT CTA, RAD Computed Tomography CT Specimen (Source) Anatomical Location Collection Method / Collectio n Time Received Time / Laterality Volume Impressions 11/26/2018 4:44 PM BRICKLAYER SUPERVISOR IMPRESSION: 1. New thoracic aortic endograft. Tandem areas of aneurysmal dilatation are relatively unchanged in s ize. No visible endoleak. Recommend annual surveillance. 2. Infrarenal abdominal aortic aneurysm measuring 4.6 x 4.6 cm, unchanged. 3. Somewhat irregular fluid collection i n left groin, likely postoperative seroma. Surrounding enlarg ed lymph nodes. TANNER STARKS MD Narrative 11/26/2018 4:44 PM BRICKLAYER SUPERVISOR CTA CHEST, ABDOMEN AND PELVIS WITH CONTRAST [...] documented as of this encounter Care Teams Resident Engineer Relationship Specialty Start Date End Date [facility], [facility] PCP - General 05/12/[address] [place] [address] documented as of this encounter
--- OUTSIDE RECORDS SUMMARY | 2022-08-15 11:28 | XMS_ITS | Encounter Summary ---
:1940 Author Organization [place] Address [address] [facility] [place] [address] Care Team Providers Name Role Phone Clinic, [facility] Primary Care Provider [phone] Reason for Visit Reason Comments RECHECK History of thoracic aortic a neurysm without rupture; 6 month follow up to 11-26-[address] Brown Encounter Details Date Type Department Care Team Description 05/17/2019 Office Visit [facility] Butch Brown Abdominal aortic aneurysm (AAA) without rupture (H) (Primary Dx); Vascular Clinic Félix Jay MD Thoracic aortic aneurysm without rupture (H) [address] [place] [address] [place] [address] [phone] Social History Tobacco Use Types Packs/Day Years [...] aneurysms. The patient plans to go to [place] this fall and is back sometime in [...] previously covered. I spent 15 minutes of wirw-zl-joob time, > 50% spent counseling and coordinating [...] documented as of this encounter Care Teams Blanching Machine Operator Relationship Specialty Start Date End Date [facility], [facility] PCP - General 05/12/17 [address] [place] [address] documented as of this encounter
--- OUTSIDE RECORDS SUMMARY | 2022-08-15 11:28 | XMS_ITS | Encounter Summary ---
:1940 Author Organization [place] Address [address] [place] [address]. [place] [address] Care Team Providers Name Role Phone Clinic, [facility] Primary Care Provider [phone] Reason for Visit Surgical Procedure Inpatient (Routine) - Closed Specialty Diagnoses / Procedures Referred By Contact Refer red To Contact Vascular Surgery / Diagnoses DESCENDING THORACIC AORTIC ANEURYSM Juan Vásquez Brett Surgery Procedures *OR51*DR. VÁSQUEZ/DR. GAVRIN*THORACIC ENDOVASCULAR ANEURYSM REPAIR WITH MEDTRONIC GRAFT MD Pierre Nava MD [address] [place] [address] [place] [address] Fax: Referral ID Status Reason Start Date Expiration Date Visits Requ ested Visits Authorized [id number] Closed 11/05/2018 11/05/2019 1 1 Encounter Details Date Type Department Care Team Description 11/05/2018 Office Visit [facility] Butch Garvin MD [address] [place] [address] Juan Vásquez MD [address] [place] [id number] Fellow, Sh Surg Cons Social History Tobacco [...] as of this encounter Care Teams Educational Technician Relationship Specialty Start Date End Date [facility] PCP - General 05/12/[address] [place] [address] documented as of this encounter
--- OUTSIDE RECORDS SUMMARY | 2022-08-15 11:28 | XMS_ITS | Encounter Summary ---
:1940 Author Organization [place] Address [address] [facility] [place] [address] Care Team Providers Name Role Phone [facility], [facility] Primary Care Provider [phone] Encounter Details Date Type Department Care Team Description 11/12/2018 Telephone [facility] Vascular Butch Brown MD [facility] [place] [address] [place] [address] [place] [id number] (Wo rk) Social History Tobacco Use Types [...] that f/u with Dr. Brown. Aruna Simmons, Sports Athletic Trainer S SERVICE PROMOTER documented in this encounter Plan of Treatment Not on filedocumented as of this encounter Visit Diagnoses Not on filedocumented in this encounter Additional Health Concerns Infection Onset Date Last Indicated Resolved Time MRSAComment: Positive 02/17/11 and 09/22/12 11/05/2018 019 Negatives 05/03/14 (HE), 12/01/14 (HE) documented as of this encounter Care Teams Manager Compensation Relationship Specialty Start Date End Date [facility], [facility] PCP - General 05/12/[address] [place] [address] documented as of this encounter
--- OUTSIDE RECORDS SUMMARY | 2022-08-15 11:28 | XMS_ITS | Encounter Summary ---
:1940 Author Organization [place] Address [address] [place] [address] Care Team Providers Name Role Phone [facility], [facility] Primary Care Provider [phone] Reason for Referral Diagnostic Imaging CT Scan - Closed Specialty Diagnoses / Procedures Referred By Contact Refer red To Contact Radiology. Diagnoses Thoracic aortic aneurysm Juan Lewis MD Ct Scan Procedures CTA Chest Abdomen Pelvis w Contrast [address] [place] [address] [place] [address] Referral ID Status Reason Start Date Expiration Date Visits Requ ested Visits Authorized [id number] Closed 11/12/2018 11/12/2019 1 1 VITIES DIRECTOR SCOUTING Reason for Visit Diagnostic Imaging CT Scan - Closed Specialty Diagnoses / Procedures Referred By Contact Refer red To Contact Radiology. Diagnoses Thoracic aortic aneurysm Juan Lewis MD Ct Scan Procedures CTA Chest Abdomen Pelvis w Contrast [address] [place] [address] [place] [address] Referral ID Status Reason Start Date Expiration Date Visits Requ ested Visits Authorized [id number] Closed 11/12/2018 11/12/2019 1 1 Encounter Details Date Type Department Care Team Description 11/26/2018 [facility] Non-Fv Credentialed Pro vider, Lab Thoracic aortic Encounter [facility] Imaging Butch Brown MD [address] [place] [id number] aneurysm (H) [address] [place] [address] Social [...] R esults for this PELVIS W CONTRAST ACTIVITIES DIRECTOR SCOUTING aneurysm (H) procedure are in the results section. documented in this encounter Results CTA Chest Abdomen Pelvis w Contrast (11/26/2018 9:03 AM ACTIVITIES DIRECTOR SCOUTING) Anatomical Region Laterality Modality Lower Extremity, SUBRAD IR PROCEDURE, UMP CT CTA, RAD Computed Tomography CT Specimen (Source) Anatomical Location Collection Method / Collectio n Time Received Time / Laterality Volume Impressions 11/26/2018 4:44 PM ACTIVITIES DIRECTOR SCOUTING IMPRESSION: 1. New thoracic aortic endograft. Tandem areas of aneurysmal dilatation are relatively unchanged in s ize. No visible endoleak. Recommend annual surveillance. 2. Infrarenal abdominal aortic aneurysm measuring 4.6 x 4.6 cm, unchanged. 3. Somewhat irregular fluid collection i n left groin, likely postoperative seroma. Surrounding enlarg ed lymph nodes. TANNER STARKS MD Narrative 11/26/2018 4:44 PM ACTIVITIES DIRECTOR SCOUTING CTA CHEST, ABDOMEN AND PELVIS WITH CONTRAST [...] ([id number]-[id number]) solution 80 Given 11/26/2018 8:30 AM ACTIVITIES DIRECTOR SCOUTING 80 mLs mL 80 mL, Intravenous, ONCE, On Thu11/26/18 at 0830, For 1 dose Saline Flush Given 11/26/2018 8:30 AM ACTIVITIES DIRECTOR SCOUTING 80 mLs Intravenous, 80 mL, ONCE, On [...] as of this encounter Care Teams Manager Oracle Retail Relationship Specialty Start Date End Date [facility], [facility] PCP - General 05/12/[address] [place] [address] documented as of this encounter
--- OUTSIDE RECORDS SUMMARY | 2022-08-15 11:28 | XMS_ITS | Encounter Summary ---
:1940 Author Organization [place] Address [address] [place] [address]. [place] [address] Care Team Providers Name Role Phone Clinic, [facility] Primary Care Provider [phone] Encounter Details Date Type Department Care Team Description 11/26/2018 [facility] Butch Brown Thoracic a ortic Vascular Clinic Félix Jay MD aneurysm (H) (Primary [address] Dx ) [address] [place] [address] [place] [id number] Social History Tobacco Use Types Packs/Day Years [...] documented as of this encounter Care Teams Visual Merchandising Coordinator Relationship Specialty Start Date End Date Clinic, Kehinde Santos PCP - General 05/12/17 [address] [id number] documented as of this encounter
--- OUTSIDE RECORDS SUMMARY | 2022-08-15 11:28 | XMS_ITS | Encounter Summary ---
:1940 Author Organization [place] Address On license of [facility] [place] [address] Care Team Providers Name Role Phone Clinic, [facility] Primary Care Provider [phone] Encounter Details Date Type Department Care Team Description 11/05/2018 Anesthesia Event M [facility] Zakia Santoyo, Interventional Radio logy [address] [place] [address] ANESTHESIOLOGY [phone] [address] [place] [address] Anesthesia Record Procedure Summary Procedure Name Responsible [...] filedocumented in this encounter Care Teams Roll Wrapper Relationship Specialty Start Date End Date Kehinde Portillo PCP - General 05/12/[address] [place] [address] documented as of this encounter
--- OUTSIDE RECORDS SUMMARY | 2022-08-15 11:29 | XMS_ITS | Encounter Summary ---
:1940 Author Organization [place] Address [facility] [place] [address] Care Team Providers Name Role Phone [facility], [facility] Primary Care Provider [phone] Encounter Details Date Type Department Care Team Description 10/21/2018 Telephone [facility] Vascular Sophie piper, Juan Nava MD Clinic [place] [address] [place] [address] [place] [address] [phone] Social History Tobacco Use Types Packs/Day Years [...] REPAIR WITH MEDTRONIC GRAFT Location of surgery: [facility] Date and time of surgery: 11/05/18 @ 8:30AM Surgeon: DR. VÁSQUEZ AND DR. GARVIN Pre-Op Appt Date: PT TO SCHEDULE AT [facility] Post-Op Appt Date: PT TO SCHEDULE Packet sent out: MAILED 10/25/18 Pre-cert/Authorization completed: Yes Date: 10/28/18 I have notified IR, ICU and anesthesia about this case. I have verified that anesthesia agrees with 3 day Eliquis hold because pt will need spinal drain. Aruna Simmons, Manager Finance LE ROLL OPERATOR Telephone Encounter - Aruna Simmons - 10/25/2018 4:25 PM CST Spoke with daughter, Raquel, and she will have her dad come on 11/03/18 @ 9:00 to the [facility] lab for type and screen. I called the lab to make the appt for them. Aruna Simmons, Manager Finance LE ROLL OPERATOR Telephone Encounter - Sondra Johnson RN - 10/22/2018 12:50 PM CST RN called [facility] Blood Bank and informed them of pt's upcoming surgery and request for 2 units of packed RBCs are available. Discussed with Blood Bank pt has RBC antibodies. Per Pam in blood bank, pt needs to have a type and screen drawn here at [facility] 48 hours prior to procedure. Pam stated pt could makea lab appointment on 11/03/18 or morning of 11/04/18. Pt's lab from 09/28/18 cannot be used as reference. Order entered for ABO/type and screen. Will route back to surgery scheduling. SHASTA Winkler, RN LE ROLL OPERATOR Telephone Encounter - Aruna Simmons - 10/21/2018 [...] prior to the upcoming surgery. Aruna Simmons, Manager Finance LE ROLL OPERATOR documented in this encounter Plan of Treatment Not on filedocumented as of this encounter Results (ABNORMAL) ABO/Rh type and screen (11/03/2018 9:10 AM MANGLE ROLL OPERATOR) [facility] gist Method Time Signature Units Ordered 4 11/05/2018 [place] 1:30 PM [facility] ABO O 11/03/2018 [place] 10:15 AM [facility] RH(D) Pos [facility] Antibody Pos (A) 11/03/2018 [place] Screen 10:15 AM [facility] Test Valid [place] 11/03/2018 [place] Only At [facility] 9:31 AM [facility] Specimen 11/06/2018 11/03/2018 [place] Expires 9:31 AM [facility] Crossmatch Red Blood 11/03/2018 [place] Cells 9:31 AM [facility] Specimen Anatomical Collection Method Collection Time Receive d Time (Source) Location / / Volume Laterality Blood specimen 11/03/2018 9:10 AM 019 9:19 (specimen) MANGLE ROLL OPERATOR AM MANGLE ROLL OPERATOR Juan Vásquez MD LAB - BLOOD BANK TEST ORDER Performing Organization Address City/State/ZIP Code Phon e Number M [facility] [address] [place] [address] [phone] [facility] [address] [place] [address], [facility] [phone] documented in this encounter Visit Diagnoses Diagnosis Abdominal aortic aneurysm (AAA) without rupture - Primary Encounter for pre-operative laboratory t esting Preoperative examination, unspecified documented in this encounter Additional Health Concerns Infection Onset Date Last Indicated Resolved Time MRSAComment: Positive 02/17/11 and 09/22/12 11/05/2018 019 Negatives 05/03/14 (HE), 12/01/14 (HE) documented as of this encounter Care Teams Budget Engineer Relationship Specialty Start Date End Date [facility] - General 05/12/17 [address] [place] [address] documented as of this encounter
--- OUTSIDE RECORDS SUMMARY | 2022-08-15 11:29 | XMS_ITS | Encounter Summary ---
:1940 Author Organization [place] Address [address] [facility] [place] [address] Care Team Providers Name Role Phone Clinic, [facility] Primary Care Provider [phone] Reason for Visit Auth/Cert Specialty Diagnoses / Procedures Referred By Contact Refer red To Contact Surgery Diagnoses ABDOMINAL AORTIC ANEURYSM Sh Periop Services Procedures ENDOVASCULAR REPAIR ANEURYSM ABDOMINAL AORTA [address] [place] [address] Phone: Referral ID Status Reason Start Date Expiration Date Visits Requ ested Visits Authorized [id number] 1 1 Encounter Details Date Type Department Care Team Description 09/28/2018 - [facility] Juan Vásquez MD [address] [place] [id number] AAA (abdominal 09/29/2018 Encounter Carrie Abdi MD [address] [place] [id number] aortic aneurysm) Intermediate Care (H) [address] [...] Comments Blood Pressure 135/74 09/29/2018 11:18 AM INSTRUCTOR ADJUNCT SURGICAL TECHNICIAN Pulse 48 09/29/2018 11:18 AM INSTRUCTOR ADJUNCT SURGICAL TECHNICIAN Temperature 36.5 ??C (97.7 ??F) 09/29/2018 11:18 AM INSTRUCTOR ADJUNCT SURGICAL TECHNICIAN Respiratory Rate 16 09/29/2018 11:18 AM INSTRUCTOR ADJUNCT SURGICAL TECHNICIAN Oxygen Saturation 95% 09/29/2018 11:18 AM INSTRUCTOR ADJUNCT SURGICAL TECHNICIAN Inhaled Oxygen Concentration - - Weight 85.2 kg (187 lb 12.8 oz) 09/29/2018 5:00 AM INSTRUCTOR ADJUNCT SURGICAL TECHNICIAN Height 170.2 cm (5' 7) 09/28/2018 11:21 AM INSTRUCTOR ADJUNCT SURGICAL TECHNICIAN Body Mass Index 29.41 09/28/2018 11:21 AM INSTRUCTOR ADJUNCT SURGICAL TECHNICIAN documented in this encounter Discharge Summaries [...] MD MT: RIO Name: SPEEDY MCDUFFIE Account: [id number] : 1940 Admit Date: 09/28/2018 Discharge Date: 09/29/2018 Document: [id number] cc: Primary RUCTOR ADJUNCT SURGICAL TECHNICIAN documented in this encounter Medications at [...] Levi MD - 09/29/2018 9:[address] [facility] Vascular Medicine Progress Note Date [...] Exchange was made for a 6 [place]ese vascular sheath. 18-gauge singlewall needle was then advanced into the left common femoral artery through which a 0.035 inch Bentson wire was advanced in the abdominal aorta. Exchange is made for a 6 [place] vascular sheath. Via the left groin access, a 5 [place] pigtail catheter was advanced over the Bentson wire into the abdominal aorta. Via the right groin, a 5 [place] pigtail catheter was advanced over the Bentson [...] [facility] at [phone] to have the rounding/central communications specialist Vascular Medicine (NOT VASCULAR SURGERY) MD paged. - After business hours M-F,??for medical concerns on this patient, please page hospitalist staff. - For vascular surgical questions, please page the appropriate surgeon (primary vascular surgeon or central communications specialist vascular surgeon) based upon the time of day. Lambert Fontanez PA-C Zoltan Londono MD - 09/29/2018 8:[address] [facility] Vascular Surgery Progress Note Assessment [...] ??? terazosin 5 mg Oral At Bedtime RUCTOR ADJUNCT SURGICAL TECHNICIAN Brandie Barrera PA-C - 09/28/2018 5:55 PM CST HOSPITALIST CONSULT CHART CHECK: Hospitalist service was consulted for cross coverage only. We will peripherally follow and chart check throughout the week. - For vascular medical concerns during business hours M-F, call the [facility] V[facility] Center at [phone] to have the rounding/central communications specialist Vascular Medicine (NOT VASCULAR SURGERY) MD paged. - After business hours M-,??for medical concerns on this patient, please page hospitalist staff. - For vascular surgical questions, please page the appropriate surgeon (primary vascular surgeon or central communications specialist vascular surgeon) based upon the time of day. Brandie Barrera PA-C RUCTOR ADJUNCT SURGICAL TECHNICIAN Michelle Villalta - 09/28/2018 10:42 AM CST Admission medication history interview status for the 09/28/2018 admission is complete. See [facility] admission navigator for prior to admission medications Medication history source reliability:Good Medication history interview source(s):Patient Medication history resources (including written lists, pill bottles, clinic record):Patient mailed in his medication list prior to surgery Primary pharmacy.[facility] Additional medication history information not noted on [facility] med list :None Time spent in [...] at HS Yes Unknown, Entered By History RUCTOR ADJUNCT SURGICAL TECHNICIAN documented in this encounter Procedure Notes [...] for procedural details. Provider name: Jacqui Odom Head Boys Tennis Coach(s):None RUCTOR ADJUNCT SURGICAL TECHNICIAN documented in this encounter Consult Notes [...] 1978. 2. Cervical fusion, Dr. Donahue at [facility] 02/18/2006. 3. Hardware removal and matrixectomy, right great toe, 09/30/2012. 4. Lumbar fusion 10/1996, L5-S1. 5. Lumbar fusion 1999, L4. 6. 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 7. Laparoscopic appendectomy, 01/2009. SOCIAL HISTORY: The patient is . He has 2 children. 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 He quit smoking [id number] after a 1/4 pack per day use [...] MD MT: JACKSON Name: SPEEDY MCDUFFIE Account: [id number] : 1940 Consult Date: 09/28/2018 Document: [id number] RUCTOR ADJUNCT SURGICAL TECHNICIAN documented in this encounter Miscellaneous Notes [...] MD MT: JACKSON Name: SPEEDY MCDUFFIE Account: [id number] : 1940 Procedure Date: 09/28/2018 Document: [id number] RUCTOR ADJUNCT SURGICAL TECHNICIAN Plan of Care - Griselda Dinero [...] will continue to follow up with this. RUCTOR ADJUNCT SURGICAL TECHNICIAN Provider Notification - Levi Hollingsworth MD - 09/29/2018 12:46 AM INSTRUCTOR ADJUNCT SURGICAL TECHNICIAN Brief update: Paged re: request for home melatonin 10 mg melatonin HS PRN added. Levi Hollingsworth MD 12:47 AM RUCTOR ADJUNCT SURGICAL TECHNICIAN Plan of Care - Ira South RN - 09/28/2018 11:11 PM CST A&O, VSS, Lung sounds clear, Bowel sounds active,adeqaute urine output, incision right & letgroin CDI Ambulates assist 1, Regular diet, tolerating liquids with poor appetite. Pain controlled by scheduled tylenol and PRN oxycodone. RUCTOR ADJUNCT SURGICAL TECHNICIAN Plan of Care - Vandana Smith RN - 09/28/2018 7:22 PM CST Pt is came from PACU.Groin site dressing clean dry and intact.Not void yet.Ice pack given.IVF running .will monitor. RUCTOR ADJUNCT SURGICAL TECHNICIAN documented in this encounter Plan of Treatment Not on filedocumented as of this encounter Procedures Procedure Name Priority Date/Time Associated Comments Diagnosis CTA CHEST WITH Routine 09/29/2018 11:38 Results f or this CONTRAST AM INSTRUCTOR ADJUNCT SURGICAL TECHNICIAN procedure are i n the results section. BASIC METABOLIC PANEL Timed 09/29/2018 10:06 AAA (abdominal Results for this AM INSTRUCTOR ADJUNCT SURGICAL TECHNICIAN aortic aneurysm) procedure a re in (H) the results section. GLUCOSE BY METER Routine 09/29/2018 6:00 AM AAA (abdominal Res ults for this INSTRUCTOR ADJUNCT SURGICAL TECHNICIAN aortic aneurysm) procedure a re in (H) the results section. ANGIOGRAM Routine 09/28/2018 2:39 PM INSTRUCTOR ADJUNCT SURGICAL TECHNICIAN IR ABDOMINAL Routine 09/28/2018 2:17 PM AAA (abdominal Results for this ENDOVASCULAR STENT INSTRUCTOR ADJUNCT SURGICAL TECHNICIAN aortic aneurysm) proce dure are in GRAFT (H) the results section. EKG 12-LEAD, TRACING STAT 09/28/2018 11:42 Res ults for this ONLY AM INSTRUCTOR ADJUNCT SURGICAL TECHNICIAN procedure are i n the results section. XR CHEST 1 VIEW STAT 09/28/2018 11:21 Results for this AM INSTRUCTOR ADJUNCT SURGICAL TECHNICIAN procedure are i n the results section. BLOOD COMPONENT Routine 09/28/2018 11:11 AAA (abdominal Result s for this AM INSTRUCTOR ADJUNCT SURGICAL TECHNICIAN aortic aneurysm) procedure a re in (H) the results section. BLOOD COMPONENT Routine 09/28/2018 11:11 AAA (abdominal Result s for this AM INSTRUCTOR ADJUNCT SURGICAL TECHNICIAN aortic aneurysm) procedure a re in (H) the results section. POTASSIUM STAT 09/28/2018 11:11 AAA (abdominal Results f or this AM INSTRUCTOR ADJUNCT SURGICAL TECHNICIAN aortic aneurysm) procedure a re in (H) the results section. LIPID PROFILE STAT 09/28/2018 11:11 AAA (abdominal Results for this AM INSTRUCTOR ADJUNCT SURGICAL TECHNICIAN aortic aneurysm) procedure a re in (H) the results section. HEMOGLOBIN A1C STAT 09/28/2018 11:11 AAA (abdominal Results for this AM INSTRUCTOR ADJUNCT SURGICAL TECHNICIAN aortic aneurysm) procedure a re in (H) the results section. CREATININE STAT 09/28/2018 11:11 AAA (abdominal Results f or this AM INSTRUCTOR ADJUNCT SURGICAL TECHNICIAN aortic aneurysm) procedure a re in (H) the results section. ABO/RH TYPE AND STAT 09/28/2018 11:11 AAA (abdominal Result s for this SCREEN AM INSTRUCTOR ADJUNCT SURGICAL TECHNICIAN aortic aneurysm) procedure a re in (H) the results section. LAB RESULT - HIM SCAN 09/24/2018 12:00 AM INSTRUCTOR ADJUNCT SURGICAL TECHNICIAN EKG CARDIAC - HIM 09/24/2018 12:00 SCAN AM INSTRUCTOR ADJUNCT SURGICAL TECHNICIAN documented in this encounter Results CTA Chest with Contrast (09/29/2018 11:38 AM INSTRUCTOR ADJUNCT SURGICAL TECHNICIAN) Anatomical Region Laterality Modality Chest, SUBRAD IR PROCEDURE, UMP CT CTA, RAD CT Computed Tomography Specimen (Source) Anatomical Location Collection Method / Collectio n Time Received Time / Laterality Volume Impressions 09/29/2018 4:30 PM INSTRUCTOR ADJUNCT SURGICAL TECHNICIAN IMPRESSION: Tortuous descending thoracic aorta with bilobed aneurysmal dilatation measuring up to 50 mm in diameter in the distal descending aorta. JACQUI A WELNICK, MD Narrative 09/29/2018 4:30 PM INSTRUCTOR ADJUNCT SURGICAL TECHNICIAN PROCEDURE: CTA of the chest DATE [...] ORDERABLES Basic metabolic panel (09/29/2018 10:06 AM [facility]) [facility] Time Signature Sodium 141 133 - 144 09/29/2018 [facility] mmol/L 10:31 AM [facility] Potassium 4.5 3.4 - 5.3 09/29/2018 [facility] mmol/L 10:31 AM [facility] Chloride 109 94 - 109 09/29/2018 [facility] mmol/L 10:31 AM [facility] Carbon Dioxide 25 20 - 32 09/29/2018 [facility] mmol/L 10:31 AM [facility] Anion Gap 7 3 - 14 09/29/2018 [facility] mmol/L 10:31 AM [facility] Glucose 97 70 - 99 09/29/2018 [facility] mg/dL 10:31 AM [facility] Urea Nitrogen 18 7 - 30 09/29/2018 [place] mg/dL 10:31 AM [facility] Creatinine 1.25 0.66 - 09/29/2018 [facility] 1.25 10:31 AM [facility] mg/[facility] GFR Estimate Not Calculated >60 09/29/2018 [place] mL/min/1. 10:[address] GFR Estimate Not Calculated >60 09/29/2018 [place] If Black mL/min/1. 10:[address] Calcium 8.8 8.5 - 09/29/2018 [place] 10.1 10:31 AM [facility] mg/dL HOSPITAL Specimen Anatomical Collection Method Collection Time Receive d Time (Source) Location / / Volume Laterality Blood specimen 09/29/2018 10:06 8 (specimen) AM INSTRUCTOR ADJUNCT SURGICAL TECHNICIAN 10:07 AM INSTRUCTOR ADJUNCT SURGICAL TECHNICIAN Pam Conde PA-C LAB - BLOOD ORDERABLES Performing Organization Address City/State/ZIP Code Phon e Number [facility] [address] [place] [address] [facility] [address] [place] [address], [place] [phone] (ABNORMAL) Glucose by meter (09/29/2018 6:00 AM INSTRUCTOR ADJUNCT SURGICAL TECHNICIAN) P athologist Signature Glucose 109 (H) 70 - 99 09/29/2018 [facility] mg/dL 6:18 AM INSTRUCTOR ADJUNCT SURGICAL TECHNICIAN TEST, GLUCOSE Specimen Anatomical Collection Method Collection Time Receive d Time (Source) Location / / Volume Laterality 09/29/2018 6:00 AM 8 6:18 INSTRUCTOR ADJUNCT SURGICAL TECHNICIAN AM INSTRUCTOR ADJUNCT SURGICAL TECHNICIAN Juan Vásquez MD LAB - BEAKER POCT Performing Organization Address City/State/ZIP Code Phon e Number [facility] POINT OF CARE TEST, GLUCOSE POINT OF CARE TEST, GLUCOSE IR Abdominal Endovascular Stent Graft (09/28/2018 2:17 PM INSTRUCTOR ADJUNCT SURGICAL TECHNICIAN) Anatomical Region Laterality Modality Abdomen/Pelvis Radio Fluoroscopy Specimen (Source) Anatomical Location Collection Method / Collectio n Time Received Time / Laterality Volume Impressions 09/29/2018 8:52 AM INSTRUCTOR ADJUNCT SURGICAL TECHNICIAN Impression: 1. Thoracic and abdominal angiography de monstrating previously unknown thoracic aortic aneurysm as well as the known abdominal aortic aneurysm 2. Endovascular aneurysm repair was abor clover to allow for further investigation of the thoracic aortic ane urysm and future surgical planning. JACQUI ODOM MD Narrative 09/29/2018 8:52 AM INSTRUCTOR ADJUNCT SURGICAL TECHNICIAN PROCEDURE(S): 1. Thoracic and abdominal aortic [...] aneurysm repair. A timeout was performed per [facility] rsal protocol policy to confirm [...] Exchange was made for a 6 [place]ese vascula r sheath. 18-gauge singlewall needle was then advanced into the left c ommon femoral artery through which a 0.035 inch Bentson wire was adva nced in the abdominal aorta. Exchange is made for a 6 [place] vascular sheath. Via the left groin access, a 5 [place] pigtail catheter was advanced over the Bentson wire into the abdominal aorta. Via the right groin, a 5 [place] pigtail catheter was advanced over the Bentson [...] aneurysm repair. A timeout was performed per [facility] rsal protocol policy to confirm [...] Exchange was made for a 6 [place] vascula r sheath. 18-gauge singlewall needle was then advanced into the left c ommon femoral artery through which a 0.035 inch Bentson wire was adva nced in the abdominal aorta. Exchange is made for a 6 [place] vascular sheath. Via the left groin access, a 5 [place] pigtail catheter was advanced over the Bentson wire into the abdominal aorta. Via the right groin, a 5 [place] pigtail catheter was advanced over the Bentson [...] EKG 12-lead, tracing only (09/28/2018 11:42 AM INSTRUCTOR ADJUNCT SURGICAL TECHNICIAN) [facility] Method Time Signature Interpretation ECG Click View RADIOLOGY Image link RESULTS to view waveform and result Specimen (Source) Anatomical Collection Method Collection Time Re ceived Time Location / / Volume Laterality 09/28/2018 11:42 AM INSTRUCTOR ADJUNCT SURGICAL TECHNICIAN Juan Vásquez MD ECG ORDERABLES Performing Organization Address City/State/ZIP Code Phon e Number RADIOLOGY RESULTS XR Chest 1 View (09/28/2018 11:21 AM INSTRUCTOR ADJUNCT SURGICAL TECHNICIAN) Anatomical Region Laterality Modality Chest Digital Radiography Specimen (Source) Anatomical Location Collection Method / Collectio n Time Received Time / Laterality Volume Impressions 09/28/2018 1:09 PM INSTRUCTOR ADJUNCT SURGICAL TECHNICIAN IMPRESSION: Heart size similar to prior. The thoracic aorta is elongated. No airspace consolidation or pneumothorax. There appears to be a small right pleural effusion. ELAINA HUNTLEY MD Narrative 09/28/2018 1:09 PM INSTRUCTOR ADJUNCT SURGICAL TECHNICIAN CHEST ONE VIEW ??09/28/2018 11:21 AM [...] ORDER BRAYDEN Blood component (09/28/2018 11:11 AM INSTRUCTOR ADJUNCT SURGICAL TECHNICIAN) [facility] gist Method Time Signature Unit Number [id number] 09/28/2018 [facility] 1:21 PM [facility] Blood Red Blood 09/28/2018 [facility] Component Cells 1:21 PM [facility] Reduced Division 00 09/28/2018 [facility] Number 1:21 PM [facility] Status of No longer 10/02/2018 [facility] Unit available 3:00 AM [facility] 10/02/2018 [facility] 0300 Blood Product [id number] 09/28/2018 [facility] Code 1:21 PM [facility] Unit Status RET [facility] Specimen Anatomical Collection Method Collection Time Receive d Time (Source) Location / / Volume Laterality 09/28/2018 11:11 09/28/2018 AM INSTRUCTOR ADJUNCT SURGICAL TECHNICIAN 11:44 AM INSTRUCTOR ADJUNCT SURGICAL TECHNICIAN Juan Vásquez MD LABORATORY Performing Organization Address City/State/ZIP Code Phon e Number M [facility] [address] [facility] [place] [address] [facility] [address] [place] [address], [facility] [phone] [facility] [address] [place], [place] [address], [facility] [phone] Blood component (09/28/2018 11:11 AM INSTRUCTOR ADJUNCT SURGICAL TECHNICIAN) Patholo gist Method Time Signature Unit Number [id number] 09/28/2018 [facility] 1:21 PM INSTRUCTOR ADJUNCT SURGICAL TECHNICIAN [facility] Blood Red Blood 09/28/2018 [facility] Component Cells 1:21 PM INSTRUCTOR ADJUNCT SURGICAL TECHNICIAN [facility] Reduced Division 00 09/28/2018 [facility] Number 1:21 PM [facility] Status of No longer 10/02/2018 [facility] Unit available 3:00 AM [facility] 10/02/2018 [facility]OSPITAL 0300 Blood Product [id number] 09/28/2018 [facility] Code 1:21 PM [facility] Unit Status [facility] Specimen Anatomical Collection Method Collection Time Receive d Time (Source) Location / / Volume Laterality 09/28/2018 11:11 09/28/2018 AM INSTRUCTOR ADJUNCT SURGICAL TECHNICIAN 11:44 AM INSTRUCTOR ADJUNCT SURGICAL TECHNICIAN Juan Vásquez MD LABORATORY Performing Organization Address City/State/ZIP Code Phon e Number M [facility] [address] [place], [place] [address] [facility] [address] [place] [address], [facility] [phone] [facility] [address] [place], [place] [address], [facility] [phone] Potassium (09/28/2018 11:11 AM INSTRUCTOR ADJUNCT SURGICAL TECHNICIAN) P athologist Signature Potassium 4.0 3.4 - 5.3 09/28/2018 [place] mmol/L 12:22 PM INSTRUCTOR ADJUNCT SURGICAL TECHNICIAN [facility] Specimen Anatomical Collection Method Collection Time Receive d Time (Source) Location / / Volume Laterality Blood specimen 09/28/2018 11:11 8 (specimen) AM INSTRUCTOR ADJUNCT SURGICAL TECHNICIAN 11:43 AM INSTRUCTOR ADJUNCT SURGICAL TECHNICIAN Ramiro Card MD LAB - BLOOD ORDERABLES Performing Organization Address City/State/ZIP Code Phon e Number M [facility] [address] [place] [address] [phone] [facility] [address] [place] [address], [place] [phone] Lipid panel (09/28/2018 11:11 AM INSTRUCTOR ADJUNCT SURGICAL TECHNICIAN) Analysis Performed At Patho logist Time Signature Cholesterol 143 <200 mg/dL 09/28/2018 [facility] 12:22 PM [facility] Triglycerides 115 <150 mg/dL 09/28/2018 [facility] 12:24 PM [facility] HDL Cholesterol 68 >39 mg/dL 09/28/2018 [facility] 12:24 PM [facility] LDL Cholesterol 52 <100 mg/dL 09/28/2018 [facility] Calculated 12:24 PM [facility] Comment: Desirable: <100 mg/dl Non HDL Cholesterol 75 <130 mg/dL 09/28/2018 12:24 PM [facility] Specimen Anatomical Collection Method Collection Time Receive d Time (Source) Location / / Volume Laterality Blood specimen 09/28/2018 11:11 8 (specimen) AM INSTRUCTOR ADJUNCT SURGICAL TECHNICIAN 11:43 AM INSTRUCTOR ADJUNCT SURGICAL TECHNICIAN Juan Vásquez MD LAB - BLOOD ORDERABLES Performing Organization Address City/State/ZIP Code Phon e Number M [facility] [address] [place] [address] [facility] [address] [place] [address], [place] [phone] (ABNORMAL) ABO/Rh type and screen (09/28/2018 11:11 AM INSTRUCTOR ADJUNCT SURGICAL TECHNICIAN) Component Value Ref Test Analysis Performed At [facility] gist Range Method Time Signature Units Ordered 2 09/28/2018 [facility] 11:54 AM [facility] ABO O 09/28/2018 [facility] 12:28 PM [facility] RH(D) Pos [facility] Antibody Screen Pos (A) 09/28/2018 [facility] 12:28 PM [facility] Test Valid Only [place] 09/28/2018 [facility] At [facility] 11:47 AM [facility] Specimen Expires 10/01/2018 09/28/2018 [facility] 11:47 AM [facility] Crossmatch Red Blood Cells 09/28/2018 [facility] 11:54 AM [facility] Blood Bank Delay in availability of Red Blood Cells called to 09/28/2018 [facility] Comment Esme in Preop at 1228 re 12:37 PM [facility] Antibody ANTI-Rosa 09/28/2018 [facility] Identification 1:26 PM [facility] Antigen Type [place] Negative 09/28/2018 [facility] 1:26 PM [facility] Specimen Anatomical Collection Method Collection Time Receive d Time (Source) Location / / Volume Laterality Blood specimen 09/28/2018 11:11 8 (specimen) AM INSTRUCTOR ADJUNCT SURGICAL TECHNICIAN 11:44 AM INSTRUCTOR ADJUNCT SURGICAL TECHNICIAN Juan Vásquez MD LAB - BLOOD BANK TEST ORDER Performing Organization Address City/State/ZIP Code Phon e Number M [facility] [address] [place] [address] [facility] [address] [place] [address], [place] [phone] (ABNORMAL) Hemoglobin A1c (09/28/2018 11:11 AM INSTRUCTOR ADJUNCT SURGICAL TECHNICIAN) P athologist Signature Hemoglobin A1C 5.7 (H) 0 - 5.6 % 09/28/2018 [facility] 12:08 PM [facility] Comment: Normal <5.7% Prediabetes 5.7-6.4% ??Diab etes 6.5% or higher - adopted from ADA consensus guidelines. Specimen Anatomical Collection Method Collection Time Receive d Time (Source) Location / / Volume Laterality Blood specimen 09/28/2018 11:11 8 (specimen) AM INSTRUCTOR ADJUNCT SURGICAL TECHNICIAN 11:43 AM INSTRUCTOR ADJUNCT SURGICAL TECHNICIAN Juan Vásquez MD LAB - BLOOD ORDERABLES Performing Organization Address City/State/ZIP Code Phon e Number M [facility] [address] [place] [address] [facility] [address] [place] [address], [place] [phone] (ABNORMAL) Creatinine (09/28/2018 11:11 AM INSTRUCTOR ADJUNCT SURGICAL TECHNICIAN) P athologist Signature Creatinine 1.46 (H) 0.66 - 09/28/2018 [facility] 1.25 mg/dL 12:22 PM [facility] GFR Estimate 47 (L) >60 09/28/2018 [facility] mL/min/1.7 12:[address] Comment: Non GFR Calc GFR Estimate If 57 (L) >60 mL/min/1.7m2 09/28/2018 12:22 PM [facility] Comment: GFR Calc Specimen Anatomical Collection Method Collection Time Receive d Time (Source) Location / / Volume Laterality Blood specimen 09/28/2018 11:11 8 (specimen) AM INSTRUCTOR ADJUNCT SURGICAL TECHNICIAN 11:43 AM INSTRUCTOR ADJUNCT SURGICAL TECHNICIAN Juan Vásquez MD LAB - BLOOD ORDERABLES Performing Organization Address City/State/ZIP Code Phon e Number M [facility] [address] [place] [address] [address] [facility] [address] [place] [address], [place] [phone] LAB RESULT - HIM SCAN (09/24/2018 12:00 AM INSTRUCTOR ADJUNCT SURGICAL TECHNICIAN) Specimen (Source) Anatomical Location Collection Method / Collectio n Time Received Time / Laterality Volume 09/24/2018 Narrative This result has an attachment that is no t available. Provider Outside NON-BEAKER LAB TESTING EKG CARDIAC - HIM SCAN (09/24/2018 12:00 AM INSTRUCTOR ADJUNCT SURGICAL TECHNICIAN) Specimen (Source) Anatomical Location Collection Method [...] (TYLENOL) tablet 975 Given 09/29/2018 5:41 AM INSTRUCTOR ADJUNCT SURGICAL TECHNICIAN 975 mg mg 975 mg, Oral, EVERY 8 HOURS, First dose on Thu09/28/18 at 2200, For 3 days, Do not use if patient has an active opioid/acetaminophen combined analgesic product ordered for pain. Maximum acetaminophen dose from all sources = 75 mg/kg/day not to exceed 4 grams/day., Post-procedure Given 09/28/2018 9:50 PM INSTRUCTOR ADJUNCT SURGICAL TECHNICIAN 975 mg apixaban ANTICOAGULANT (ELIQUIS) tablet 2.5 Given 09/29/2018 8:22 AM INSTRUCTOR ADJUNCT SURGICAL TECHNICIAN 2.5 mg mg 2.5 mg, Oral, 2 TIMES DAILY, First dose on Thu09/29/18 at 0900 atorvastatin (LIPITOR) tablet 40 mg Given 09/28/2018 9:50 PM INSTRUCTOR ADJUNCT SURGICAL TECHNICIAN 40 mg 40 mg, Oral, EVERY EVENING, First dose on Thu09/28/18 at 2000 ceFAZolin (ANCEF) intermittent infusion Given 09/29/2018 5:4 1 AM INSTRUCTOR ADJUNCT SURGICAL TECHNICIAN 2 g 200 mL/hr 2 g in 100 mL dextrose PRE-MIX Routine, 2 g, Intravenous, EVERY 8 HOURS, First dose on Thu09/28/18 at 2100, For 2 doses, Indications: Perioperative Pharmacoprophylaxis, Post-procedure Given 09/28/2018 9:55 PM INSTRUCTOR ADJUNCT SURGICAL TECHNICIAN 2 g 200 mL/hr fentaNYL (PF) (SUBLIMAZE) injection 100 mcg Given 09/28/2018 12:07 PM INSTRUCTOR ADJUNCT SURGICAL TECHNICIAN 50 mcg 100 mcg, Intravenous, ONCE, On Thu09/28/18 at 1100, For 1 dose, For ordered IV doses 1-100 mcg give IV Push undiluted over a minimum of 3-5 minutes. fentaNYL (PF) (SUBLIMAZE) injection 25-5 0 mcg Given 09/28/2018 4:04 PM INSTRUCTOR ADJUNCT SURGICAL TECHNICIAN 25 mcg 25-50 mcg, Intravenous, EVERY [...] 3-5 minutes., PACU Given 09/28/2018 3:50 PM INSTRUCTOR ADJUNCT SURGICAL TECHNICIAN 25 mcg Given 09/28/2018 3:41 PM INSTRUCTOR ADJUNCT SURGICAL TECHNICIAN 25 mcg hydrALAZINE (APRESOLINE) injection 2.5-5 mg Given 09/28/2018 4:10 PM INSTRUCTOR ADJUNCT SURGICAL TECHNICIAN 5 mg 2.5-5 mg, Intravenous, EVERY [...] solution 80 mL Given 09/29/2018 11:37 AM INSTRUCTOR ADJUNCT SURGICAL TECHNICIAN 80 mLs 80 mL, Intravenous, ONCE, On Thu09/29/18 at 1130, For 1 dose lactated ringers infusion New Bag 09/28/2018 12:16 PM INSTRUCTOR ADJUNCT SURGICAL TECHNICIAN 25 mL/hr at 25 mL/hr, Intravenous, CONTINUOUS, IF patient NOT on dialysis., Pre-procedure, Starting on Thu09/28/18 at 1115, Until Thu09/28/18 at 1457 lactated ringers infusion New Bag 09/29/2018 2:48 AM INSTRUCTOR ADJUNCT SURGICAL TECHNICIAN 125 mL/hr at 125 mL/hr, Intravenous, CONTINUOUS, NOT for patient on renal dialysis. Saline lock after 1 liter if taking PO fluids., Post-procedure, Starting on Thu09/28/18 at 1800, Until Thu09/29/18 at 1753 Rate/Dose Verify 09/29/2018 12:39 AM INSTRUCTOR ADJUNCT SURGICAL TECHNICIAN 125 mL/hr New Bag 09/28/2018 6:31 PM INSTRUCTOR ADJUNCT SURGICAL TECHNICIAN 125 mL/hr lidocaine 1 % 1 mL Given 09/28/2018 12:00 PM INSTRUCTOR ADJUNCT SURGICAL TECHNICIAN 0.3 mLs 1 mL, Other, EVERY 1 HOUR PRN, mild pain with VAD insertion or accessing implanted port, Starting on Thu09/28/18 at 1101, Do NOT give if patient has a history of allergy to any local anesthetic or any louie product. MAX dose 1 mL subcutaneous OR intradermal in divided doses., Pre-procedure lisinopril (PRINIVIL/ZESTRIL) tablet 5 m g Given 09/29/2018 8:21 AM INSTRUCTOR ADJUNCT SURGICAL TECHNICIAN 5 mg 5 mg, Oral, 2 TIMES DAILY, First dose on Thu09/28/18 at 2100 Given 09/28/2018 9:52 PM INSTRUCTOR ADJUNCT SURGICAL TECHNICIAN 5 mg melatonin tablet 10 mg Given 09/29/2018 2:48 AM INSTRUCTOR ADJUNCT SURGICAL TECHNICIAN 10 mg 10 mg, Oral, AT BEDTIME PRN, sleep, Starting on Thu09/29/18 at 0044 metoprolol tartrate (LOPRESSOR) tablet 5 0 mg Given 09/29/2018 8:21 AM INSTRUCTOR ADJUNCT SURGICAL TECHNICIAN 50 mg 50 mg, Oral, 2 TIMES DAILY, First dose on Thu09/28/18 at 2100 Given 09/28/2018 9:50 PM INSTRUCTOR ADJUNCT SURGICAL TECHNICIAN 50 mg midazolam (VERSED) injection 2 mg Given 09/28/2018 12:10 PM INSTRUCTOR ADJUNCT SURGICAL TECHNICIAN 1 mg 2 mg, Intravenous, ONCE, On Thu09/28/18 at 1100, For 1 dose, For ordered IV doses 0.1-2.5 mg give IV Push slowly titrated over a minimum of 2 minutes. Dilute each 1mg in 4mL of NS. Given 09/28/2018 12:07 PM INSTRUCTOR ADJUNCT SURGICAL TECHNICIAN 1 mg oxyCODONE (ROXICODONE) tablet 5 mg Given 09/28/2018 10:49 PM INSTRUCTOR ADJUNCT SURGICAL TECHNICIAN 5 mg 5 mg, Oral, EVERY 3 HOURS PRN, other, pain control or improvement in physical function. Hold dose for analgesic side effects., Starting on Thu09/28/18 at 1751, Notify provider to assess for uncontrolled pain or analgesic side effects. Hold while on OUTSOLE TACKER or with regular IV opioid dosing. Maximum total is 40 mg in 24 hours., Post-procedure Saline flush Given 09/29/2018 11:37 AM INSTRUCTOR ADJUNCT SURGICAL TECHNICIAN 80 mLs Intravenous, 80 mL, ONCE, On Thu09/29/18 at 1130, For 1 dose sodium chloride (PF) 0.9% PF flush 3 mL Given 09/28/2018 9:58 PM INSTRUCTOR ADJUNCT SURGICAL TECHNICIAN 3 mLs 3 mL, Intracatheter, EVERY 8 HOURS, First dose on Thu09/28/18 at 2200, And Q1H PRN, to lock peripheral IV dormant line., Post-procedure terazosin (HYTRIN) capsule 5 mg Given 09/28/2018 10:49 PM INSTRUCTOR ADJUNCT SURGICAL TECHNICIAN 5 mg 5 mg, Oral, AT BEDTIME, First dose on Thu09/28/18 at 2200 documented in this encounter Active and Recently Administered Medications Times are shown in INSTRUCTOR ADJUNCT SURGICAL TECHNICIAN. Scheduled Medication Order 09/27/2018 09/28/2018 09/29/2018 [...] Volume Adjustment - Provider: Mattie M Angelats, AMMONIA REFRIGERATION WORKER PROVINCE ARCHIVIST)1432 (Anesthesia Volume Adjustment - Provider: Mattie Marmolejo, AMMONIA REFRIGERATION WORKER PROVINCE ARCHIVIST) at 25 mL/hr, Intravenous, CONTINUOUS, IF patient [...] analgesic side effects. Hold whil e on OUTSOLE TACKER or with regular IV opioid dosing. Maximum total is 40 mg in 24 hours., Post-procedure sodium chloride (PF) 0.9% PF flush 3 mL 3 mL, Intracatheter, EVERY 1 HOUR PRN, l ine flush, for peripheral IV flush post IV meds, Starting Thu09/28/18 at 1751, Post-procedure documented in this encounter Care Teams Relations Mgr Relationship Specialty Start Date End Date [facility], [facility] PCP - General 05/12/[address] [place] [address] documented as of this encounter
--- OUTSIDE RECORDS SUMMARY | 2022-08-15 11:29 | XMS_ITS | Encounter Summary ---
:1940 Author Organization [place] Address [address] [facility] [place] [address] Care Team Providers Name Role Phone Clinic, [facility] Primary Care Provider [phone] Reason for Visit Auth/Cert Specialty Diagnoses / Procedures Referred By Contact Refer red To Contact Surgery Diagnoses DESCENDING THORACIC AORTIC ANEURYSM Sh Periop Services Procedures ENDOVASCULAR REPAIR ANEURYSM THORACIC AORTIC [address] [place] [address] Phone: Referral ID Status Reason Start Date Expiration Date Visits Requ ested Visits Authorized [id number] 1 1 Encounter Details Date Type Department Care Team Description 11/03/2018 Hospital Encounter [facility] Juan Lewis En counter for [facility] MD Elijah pre-operative [address] laboratory testing [place] [phone] [address] [place] [id number] Social History Tobacco Use Types Packs/Day Years [...] AM Encounter for Resul ts for this INSTRUMENTAL TEACHER pre-operative procedure are in laboratory testing the resul ts section. BLOOD COMPONENT Routine 11/03/2018 9:10 AM Encounter for Resul ts for this INSTRUMENTAL TEACHER pre-operative procedure are in laboratory testing the resul ts section. BLOOD COMPONENT Routine 11/03/2018 9:10 AM Encounter for Resul ts for this INSTRUMENTAL TEACHER pre-operative procedure are in laboratory testing the resul ts section. BLOOD COMPONENT Routine 11/03/2018 9:10 AM Encounter for Resul ts for this INSTRUMENTAL TEACHER pre-operative procedure are in laboratory testing the resul ts section. ABO/RH TYPE AND Routine 11/03/2018 9:10 AM Encounter for Resul ts for this SCREEN INSTRUMENTAL TEACHER pre-operative procedure are in laboratory testing the resul ts section. documented in this encounter Results Blood component (11/03/2018 9:10 AM INSTRUMENTAL TEACHER) [employer] Method Time Signature Unit Number [id number] 11/05/2018 [facility] 7:55 AM [facility] Blood Red Blood Cells 11/05/2018 [facility] Component LeukoReduced 7:55 AM [facility] 00 11/05/2018 [facility] Number 7:55 AM [facility] Status of No longer 11/07/2018 [facility] Unit available 3:00 AM [facility] 11/07/2018 0300 [facility] Blood Product [id number] 11/05/2018 [facility] Code 7:55 AM [facility] Unit Status RET [facility] Specimen Anatomical Collection Method Collection Time Receive d Time (Source) Location / / Volume Laterality 11/03/2018 9:10 AM 9 9:19 INSTRUMENTAL TEACHER AM INSTRUMENTAL TEACHER Juan Lewis MD LABORATORY Performing Organization Address City/State/ZIP Code Phon e Number [place] [address] [place], [place] [address] [facility] [address] [place] [address], [facility] [address] [place], [place] [address], [facility] [phone] Blood component (11/03/2018 9:10 AM INSTRUMENTAL TEACHER) [employer] Method Time Signature Unit Number [id number] 11/05/2018 [facility] 7:55 AM [facility] Blood Red Blood 11/05/2018 [facility] Component Cells 7:55 AM [facility] Reduced Division 00 11/05/2018 [facility] Number 7:55 AM [facility] Status of No longer 11/07/2018 [facility] Unit available 3:00 AM [facility] 11/07/2018 HOSPITAL 0300 Blood Product [id number] 11/05/2018 [facility] Code 7:55 AM [facility] Unit Status [facility] Specimen Anatomical Collection Method Collection Time Receive d Time (Source) Location / / Volume Laterality 11/03/2018 9:10 AM 9 9:19 INSTRUMENTAL TEACHER AM INSTRUMENTAL TEACHER Juan Lewis MD LABORATORY Performing Organization Address City/State/ZIP Code Phon e Number M [facility] [address] [place], [place] [address] [facility] [address] [place] [address], [facility] [address] [place], [place] [address], [facility] [phone] Blood component (11/03/2018 9:10 AM INSTRUMENTAL TEACHER) [facility] Method Time Signature Unit Number [id number] 11/03/2018 [facility] 10:39 AM [facility] Blood Red Blood 11/03/2018 [facility] Component Cells 10:[address] [facility] Reduced Division 00 11/03/2018 [facility] Number 10:39 AM [facility] Status of No longer 11/07/2018 [facility] Unit available 3:00 AM [facility] 11/07/2018 HOSPITAL 0300 Blood Product [id number] 11/03/2018 [facility] Code 10:39 AM [facility] Unit Status [facility] Specimen Anatomical Collection Method Collection Time Receive d Time (Source) Location / / Volume Laterality 11/03/2018 9:10 AM 9 9:19 INSTRUMENTAL TEACHER AM INSTRUMENTAL TEACHER Juan Lewis MD LABORATORY Performing Organization Address City/State/ZIP Code Phon e Number M [facility] [address] [place], [place] [address] [facility] [address] [place] [address], [facility] [phone] [address], [facility] [phone] Blood component (11/03/2018 9:10 AM INSTRUMENTAL TEACHER) [facility] Method Time Signature Unit Number [id number] 11/03/2018 [facility] 10:39 AM [facility] Blood Red Blood 11/03/2018 [facility] Component Cells 10:39 AM [facility] Reduced Division 00 11/03/2018 [facility] Number 10:39 AM [facility] Status of No longer 11/07/2018 [facility] Unit available 3:00 AM [facility] 11/07/2018 HOSPITAL 0300 Blood Product [id number] 11/03/2018 [facility] Code 10:39 AM [facility] Unit Status [facility] Specimen Anatomical Collection Method Collection Time Receive d Time (Source) Location / / Volume Laterality 11/03/2018 9:10 AM 9 9:19 INSTRUMENTAL TEACHER AM INSTRUMENTAL TEACHER Juan Lewis MD LABORATORY Performing Organization Address City/State/ZIP Code Phon e Number [place] [address] [place] [phone] [place] [address] [place], [place] [address] [place] [address], [facility] [phone] (ABNORMAL) ABO/Rh type and screen (11/03/2018 9:10 AM INSTRUMENTAL TEACHER) [facility] Signature Units Ordered 4 11/05/2018 [facility] 1:30 PM [facility] ABO O 11/03/2018 [facility] 10:15 AM [facility] RH(D) Pos [facility] Antibody Pos (A) 11/03/2018 [facility] Screen 10:15 AM [facility] Test Valid [place] 11/03/2018 [facility] Only At [facility] 9:31 AM [facility] Specimen 11/06/2018 11/03/2018 [facility] Expires 9:31 AM [facility] Crossmatch Red Blood 11/03/2018 [facility] Cells 9:31 AM INSTRUMENTAL TEACHER [facility] Specimen Anatomical Collection Method Collection Time Receive d Time (Source) Location / / Volume Laterality Blood specimen 11/03/2018 9:10 AM 019 9:19 (specimen) INSTRUMENTAL TEACHER AM INSTRUMENTAL TEACHER Juan Lewis MD LAB - BLOOD BANK TEST ORDER Performing Organization Address City/State/ZIP Code Phon e Number M [facility] [address] [place] [address] [phone] [facility] [address] [place] [address], [facility] [phone] documented in this encounter Visit Diagnoses Diagnosis Encounter for pre-operative laboratory t esting Preoperative examination, unspecified documented in this encounter Care Teams Clothing Pattern Preparer Relationship Specialty Start Date End Date [facility], [facility] PCP - General 05/12/[address] [place] [phone] documented as of this encounter
--- OUTSIDE RECORDS SUMMARY | 2022-08-15 11:29 | XMS_ITS | Encounter Summary ---
:1940 Author Organization [place] Address [address] [place] [address] Care Team Providers Name Role Phone [facility] [place] Primary Care Provider [phone] Encounter Details Date Type Department Care Team [...] filedocumented in this encounter Care Teams Field Support Specialist Relationship Specialty Start Date End [facility] - [facility] 05/12/[address] [place] [phone] documented as of this encounter
--- OUTSIDE RECORDS SUMMARY | 2022-08-15 11:29 | XMS_ITS | Encounter Summary ---
:1940 Author Organization [place] Address [address] [place] [address] Care Team Providers Name Role Phone [facility] [place] Primary Care Provider [phone] Encounter Details Date Type Department Care Team [...] on filedocumented in this encounter Care Teams Dietitian Teacher Relationship Specialty Start Date End Date [facility] - [facility] [place] [address] documented as of this encounter
--- OUTSIDE RECORDS SUMMARY | 2022-08-15 11:29 | XMS_ITS | Encounter Summary ---
:1940 Author Organization [place] Address [address] [facility] [place] [address] Care Team Providers Name Role Phone Clinic, [facility] Primary Care Provider [phone] Reason for Visit Auth/Cert Specialty Diagnoses / Procedures Referred By Contact Refer red To Contact Surgery Diagnoses DESCENDING THORACIC AORTIC ANEURYSM Sh Periop Services Procedures ENDOVASCULAR REPAIR ANEURYSM THORACIC AORTIC [address] [place] [address] Phone: Referral ID Status Reason Start Date Expiration Date Visits Requ ested Visits Authorized [id number] 1 1 Encounter Details Date Type Department Care Team Description 11/05/2018 Anesthesia Event [facility] Fela Conrad PeriOP Ser vices [place] [address], [address] ANESTHESIOLOGISTS [place] [address] [address] [phone] [place] [address] (Wo rk) Anesthesia Record Procedure Summary Procedure [...] 11/05/18; 1241; Left; 11/05/18 1241 by Rasta oLrenzana RN Incision/Surgical Site 11/05/18; 1241; 11/05/18 1241 by Rasta Vera RN RETIRED ETT Mask Ventilation: 11/05/18 1105 by 11/05/18 1228 by Easy with oral Ivon Aguilar airway; Ease of MAINTENANCE LEADER SLAT BASKET MAKER MACHINE Intubation: Easy; Airway Size: 8; Cuffed; Oral; Blade Type: Glidescope; Blade Size: 4; Place by: Ryan [place]; Insertion Attempts: 1; Secured at (cm)to lip: 23 cm; Breath Sounds: Equal, clear and bilateral; End Tidal CO2: Present; Dentition: Intact, Unchanged; Grade View of Cords: 1; Airway Adjuncts: Aroda scope Left Groin Interventional #1; 09/28/18; 1500 [...] Fela Conrad November 05, 2018 3:25 PM ANICAL ADJUSTER Anesthesia Procedure Notes - Fela Conrad - 11/05/2018 3:24 PM MECHANICAL ADJUSTER Associated Order(s): Central line catheter placement CENTRAL [...] flushed: Yes Comments: Central Line No complications. ANICAL ADJUSTER Anesthesia Procedure Notes - Fela Conrad - 11/05/2018 3:23 PM MECHANICAL ADJUSTER Associated Order(s): A Line Catheter Placement ARTERIAL [...] waveform: Yes Comments: Arterial Line No complications ANICAL ADJUSTER Anesthesia Preprocedure Evaluation - Fela Conrad - [...] and alternatives discussed with: Patient.. Fela Conrad ANICAL ADJUSTER documented in this encounter Miscellaneous Notes Anesthesia [...] APRN CRNA November 05, 2018 12:44 PM ANICAL ADJUSTER documented in this encounter Plan of Treatment Not on filedocumented as of this encounter Procedures Procedure Name Priority Date/Time Associated Diagnosis Comme nts FV AN TX PA CENTRAL Routine 11/05/2018 3:24 PM MECHANICAL ADJUSTER LINE CATHETER PROCEDURE Procedure Note - Dariel [...] LINE CATHETER PLACEMENT Routine 11/05/2018 3:23 PM MECHANICAL ADJUSTER Procedure Note - Dariel Conrad - 11/05/2018 [...] clindamycin (CLEOCIN) infusion Given 11/05/2018 10:28 AM MECHANICAL ADJUSTER 900 mg Routine, PRN, Starting on Thu11/05/18 at 1028, Anesthesia Intra-op dexamethasone (DECADRON) injection Given 11/05/2018 10:25 AM MECHANICAL ADJUSTER 4 mg PRN, Administer over 1 Minutes, Starting on Thu11/05/18 at 1025, Anesthesia Intra-op ePHEDrine injection Given 11/05/2018 10:55 AM MECHANICAL ADJUSTER 10 mg PRN, Starting on Thu11/05/18 at 1025, Anesthesia Intra-op Given 11/05/2018 10:38 AM MECHANICAL ADJUSTER 5 mg Given 11/05/2018 10:25 AM MECHANICAL ADJUSTER 5 mg fentaNYL (PF) (SUBLIMAZE) injection Given 11/05/2018 11:48 AM MECHANICAL ADJUSTER 50 mcg PRN, Administer over 3-5 Minutes, Starting on Thu11/05/18 at 1010, Anesthesia Intra-op Given 11/05/2018 11:17 AM MECHANICAL ADJUSTER 50 mcg Given 11/05/2018 10:10 AM MECHANICAL ADJUSTER 100 mcg glycopyrrolate (ROBINUL) injection Given 11/05/2018 12:09 PM MECHANICAL ADJUSTER 0.2 mg PRN, Administer over 1-2 Minutes, Starting on Thu11/05/18 at 1055, Anesthesia Intra-op Given 11/05/2018 12:07 PM MECHANICAL ADJUSTER 0.4 mg Given 11/05/2018 10:55 AM MECHANICAL ADJUSTER 0.2 mg heparin (porcine) injection Given 11/05/2018 10:59 AM MECHANICAL ADJUSTER 7,000 Units PRN, Starting on Thu11/05/18 at 1059, Anesthesia Intra-op lactated ringers infusion New Bag 11/05/2018 7:30 AM MECHANICAL ADJUSTER Intravenous, CONTINUOUS PRN, Anesthesia Intra-op, Starting on Thu11/05/18 at 0957, Until Thu11/05/18 at 1244 lactated ringers infusion New Bag 11/05/2018 9:57 AM MECHANICAL ADJUSTER CONTINUOUS PRN, Anesthesia Intra-op, Starting on Thu11/05/18 at 0730, Until Thu11/05/18 at 1244 New Bag 11/05/2018 7:30 AM MECHANICAL ADJUSTER lidocaine 2% injection (MDV) Given 11/05/2018 10:14 AM MECHANICAL ADJUSTER 80 mg PRN, Starting on Thu11/05/18 at 1014, Anesthesia Intra-op neostigmine (PROSTIGMINE) injection Given 11/05/2018 12:09 PM MECHANICAL ADJUSTER 2 mg Intravenous, PRN, Starting on Thu11/05/18 at 1207, Anesthesia Intra-op Given 11/05/2018 12:07 PM MECHANICAL ADJUSTER 2 mg nitroGLYcerin 25 mg in D5W 250 mL infusi on Given 11/05/2018 12:39 PM MECHANICAL ADJUSTER 10 mcg PRN, Starting on Thu11/05/18 at 1113, Anesthesia Intra-op Given 11/05/2018 12:38 PM MECHANICAL ADJUSTER 15 mcg Given 11/05/2018 11:15 AM MECHANICAL ADJUSTER 10 mcg ondansetron (ZOFRAN) injection Given 11/05/2018 12:07 PM MECHANICAL ADJUSTER 4 mg PRN, Administer over 2-5 Minutes, Starting on Thu11/05/18 at 1207, Anesthesia Intra-op phenylephrine (CHRISTINE-SYNEPHRINE) injection Bolus 11/05/2018 11:23 AM MECHANICAL ADJUSTER 50 mcg CONTINUOUS PRN, Starting on Thu11/05/18 at 1120, Anesthesia Intra-op New Bag 11/05/2018 11:20 AM MECHANICAL ADJUSTER 50 mcg phenylephrine 0.2 mg/mL Restarted 11/05/2018 11:39 AM 0.2 mcg/kg/min 5.06 mL/hr (mcg/kg/min) drip MECHANICAL ADJUSTER CONTINUOUS PRN, Starting on Thu11/05/18 at 1024, Anesthesia Intra-op Rate/Dose Change 11/05/2018 11:27 AM MECHANICAL ADJUSTER 0.2 mcg/kg/min 5.06 mL/hr Restarted 11/05/2018 11:20 AM MECHANICAL ADJUSTER 0.3 mcg/kg/min 7.59 mL/hr propofol (DIPRIVAN) injection 10 mg/mL v ial Given 11/05/2018 11:17 AM MECHANICAL ADJUSTER 30 mg PRN, Starting on Thu11/05/18 at 1014, Anesthesia Intra-op Given 11/05/2018 10:14 AM MECHANICAL ADJUSTER 170 mg rocuronium (ZEMURON) injection Given 11/05/2018 10:15 AM MECHANICAL ADJUSTER 50 mg PRN, Starting on Thu11/05/18 at 1015, Anesthesia Intra-op sodium chloride 0.9% infusion New Bag 11/05/2018 9:57 AM MECHANICAL ADJUSTER CONTINUOUS PRN, Anesthesia Intra-op, Starting on Thu11/05/18 at 0957, Until Thu11/05/18 at 1244 vecuronium (NORCURON) injection Given 11/05/2018 11:23 AM MECHANICAL ADJUSTER 1 mg PRN, Starting on Thu11/05/18 at 1031, Anesthesia Intra-op Given 11/05/2018 10:31 AM MECHANICAL ADJUSTER 2 mg documented in this encounter Additional Health Concerns Infection Onset Date Last Indicated Resolved Time MRSAComment: Positive 02/17/11 and 09/22/12 11/05/2018 019 Negatives 05/03/14 (HE), 12/01/14 (HE) documented as of this encounter Care Teams Bank Credit Card Collection Clerk Relationship Specialty Start Date End Date [facility], [facility] PCP - General 05/12/17 [address] [place] [address] documented as of this encounter
--- OUTSIDE RECORDS SUMMARY | 2022-08-15 11:29 | XMS_ITS | Encounter Summary ---
:1940 Author Organization [place] Address [address] [facility] [place] [address] Care Team Providers Name Role Phone [facility], [facility] Primary Care Provider [phone] Reason for Visit Surgical Procedure Inpatient (Routine) - Closed Specialty Diagnoses / Procedures Referred By Contact Refer red To Contact Surgery Diagnoses AAA Juan Lewis MD Saylor, Howard Leroy, Procedures *OR 51* DR. ALANIZ TO ASSIST WITH ENDOVASCULAR REPAIR OF AAA WITH [employer] [address] [place] [address] [address] [place] [address] Phone: Fax: Referral ID Status Reason Start Date Expiration Date Visits Requ ested Visits Authorized [id number] Closed 09/28/2018 09/28/2019 1 1 Encounter Details Date Type Department Care Team Description 09/28/2018 Office Visit SX SURGERY CASES Juan Lewis MD [address] [place] [id number] Fellow, Sh Surg Cons Social History Tobacco [...] on filedocumented in this encounter Care Teams Riprap Worker Relationship Specialty Start Date End Date [facility], [facility] PCP - General 05/12/[address] [place], [place] [phone] documented as of this encounter
--- OUTSIDE RECORDS SUMMARY | 2022-08-15 11:29 | XMS_ITS | Encounter Summary ---
:1940 Author Organization [place] Address [address] [facility] [place] [address] Care Team Providers Name Role Phone 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 Periop Services Procedures ENDOVASCULAR REPAIR ANEURYSM THORACIC AORTIC [address], [address] [place] [address] Phone: Referral ID Status Reason Start Date Expiration Date Visits Requ ested Visits Authorized [id number] 1 1 Encounter Details Date Type Department Care Team Description 11/05/2018 Surgery [facility] Juan Lewis THORACIC ENDOVASCULAR [place] PeriOP MD Elijah ANEURYSM REPAIR WITH Services [address] [employer], [address] [place] [address] [place] [address] [phone] Surgery Details Date/Time Status Location OR Service [...] Comments Blood Pressure 159/88 11/05/2018 9:00 AM EXTRA HAND Pulse 57 11/05/2018 9:00 AM EXTRA HAND Temperature 36.7 ??C (98.1 ??F) 11/05/2018 6:27 AM EXTRA HAND Respiratory Rate 21 11/05/2018 9:05 AM EXTRA HAND Oxygen Saturation 100% 11/05/2018 9:05 AM EXTRA HAND Inhaled Oxygen Concentration - - Weight 84.3 kg (185 lb 14.4 oz) 11/05/2018 6:27 AM EXTRA HAND Height 167.6 cm (5' 6) 11/05/2018 6:27 AM EXTRA HAND Body Mass Index 31.06 11/05/2018 6:27 AM EXTRA HAND documented in this encounter Discharge Summaries Bessy Mccray MD - 11/09/2018 10:56 AM CST Physician Discharge Summary Patient ID: Speedy Hendricks [id number] 78 year old 1940 Admit date: 11/05/2018 [...] an oral diet. He was discharged to [facility] on POD#4 in stable [...] to. Signed: Bessy Mccray 11/09/2018 10:56 AM A HAND Associated attestation - Juan Lewis MD - 11/11/2018 3:10 PM EXTRA HAND Physician Attestation I, Juan Lewis, have [...] Traylor RN - 11/09/2018 11:47 AM CST A HAND AttachmentsThe following attachments cannot be sent through Care Everywhere.(S) TREATING A THORACIC AORTIC ANEURYSM (TAA): ENDOVASCULAR GRAFT ([place]) documented in this encounter Medications at Time [...] home with family via car.All questions answered. A HAND Gurwinder Godoy MD - 11/09/2018 12:[address] [facility] Vascular Medicine Progress Note Date of Service (when I saw the patient): 11/09/2018 Physician Supervisory Attestation: I have reviewed and discussed with the physician legal assistant their history, physical and plan and [...] with vascular surgery service. Gurwinder Godoy MD,[facility] Vascular Medicine service 11/09/2018 Assessment & [...] Rate: 93 Resp: 22 SpO2: 93 % G4Dhmmgd: None (Room air) Vitals: 11/06/18 0211 11/07/18 [...] = values in this interval not displayed. A HAND Bessy Mccray MD - 11/09/2018 7:36 [...] Bessy Martinez MD Vascular Surgery Fellow Pager A HAND Associated attestation - Butch Brown MD - 11/16/2018 9:50 AM EXTRA HAND I was involved with the assessment and plan, and I agree with the findings and plan of care as documented in the fellow's note. MD Wilfredo Castillo Carley, JOSE - 11/08/2018 6:35 PM CST Pt arrived to station 33 @ 1820 A HAND Aura Crooks RN - 11/08/2018 5:05 PM CST Pt had drained removed this AM. Draining moderate amount- MDA aware. SR. BP wnl- gave hydralazine x1prn. Chapman to be removed prior to transfer. Lines out and hemostasis achieved. Up to chair- tolerated well, SBA. Frequent neuros- wnl. Will call report to [facility] and will transfer at . A HAND Dimas Chapman MD - 11/08/2018 12:[address] [facility] Vascular Medicine Progress Note Date [...] -- AST 19 -- -- -- -- A HAND Bessy Mccray MD - 11/08/2018 8:18 [...] Bessy Martinez MD Vascular Surgery Fellow Pager A HAND Associated attestation - Butch Brown MD - 11/16/2018 3:00 PM EXTRA HAND I was involved with the assessment and plan, and I agree with the findings and plan of care as documented in the fellow's note. Butch Boyes [place] Michael Steve William, NP - 11/08/2018 8:01 [...] drain tubing following [place]clamping[place] [id number] down from 100s yesterday. At this time, [...] Christina Burrell MD Vascular Surgery Fellow Pgr A HAND Bishop Tran MD - 11/07/2018 11:55 AM CST Director Of Student Services: S: Mild groin pain this morning, but [...] Dr. Staley of vascular medicine at bedside. Director Of Student Services service will sign off for now. Please re-consult as needed. A HAND Gurwinder Godoy MD - 11/07/2018 9:[address] [facility] Vascular Medicine Progress Note Date [...] any change in neuro status contact [facility] surgery first and consider neurocritical care [...] good Reviewed last night events, discussed with Director Of Student Services and ICU nursing staff this am. Patients [...] Avoid nephrotoxic meds. ?? Gurwinder Godoy MD,[facility] Vascular Medicine Interval History Reviewed last [...] 7.8* 8.6 -- GLC 115* 121* -- A HAND Danette Peck RN - 11/07/2018 8:50 [...] to keep SBP <160 and MAP >80. A HAND Gurwinder Godoy MD - 11/06/2018 12:[address] [facility] Vascular Medicine Progress Note Date [...] Avoid nephrotoxic meds. ?? Gurwinder Godoy MD,[facility] Vascular Medicine Interval History Reviewed last [...] 7.8* 8.6 -- GLC 115* 121* -- A HAND Millie Handley APRN TRIMMER AND REINFORCER - 11/06/2018 11:55 AM CST Critical Care [...] Total critical care time today 35 min. A HAND Associated attestation - Bishop Tran MD - 11/12/2018 10:50 AM EXTRA HAND Physician Attestation I, Bishop Tran, have [...] sufficient urine. Continue plan as documented in CENTRAL CONTROL ROOM OPERATOR note. The patient does not seem to [...] Christina Burrell MD Vascular Surgery Fellow Pgr A HAND Danette Peck RN - 11/06/2018 9:15 AM CST 0845: While leveled, asleep and lying on L, SCP Increased to 15-23. I: opened drain for 5 min resulting in 2cc clear liquid. I: Clamped. E: SCP decreased to 14. Turned to R side, SCP 3-7. A HAND Michelle Villalta - 11/05/2018 6:05 AM CST Admission medication history interview status for the 11/05/2018 admission is complete. See [facility] admission navigator for prior to admission medications Medication history source reliability:Good Medication history interview source(s):Patient Medication history resources (including written lists, pill bottles, clinic record):Patient mailed in his medication list prior to surgery Primary pharmacy.[facility] Additional medication history information not noted on [employer] [address] med list :None Time spent in this [...] Bedtime 11/04/2018 at 2200 Yes Reported, Patient A HAND documented in this encounter Procedure Notes [...] management per anethesia/vasc surg Missael Garcia MD [phone] A HAND documented in this encounter Consult Notes Kaleb Rodriguez NP - 11/05/2018 5:14 PM CSTAssociated Order(s): GREASE MAN IP CONSULT [facility] Consult Critical Care Service Date [...] Code Status Full Code [facility] Chief Complaint S/p TEVAR History of [...] IR Lumbar Drain Placement w Fluoro Narrative [facility] RADIOLOGY INTERVENTIONAL NEURORADIOLOGY PROCEDURAL NOTE FLUOROSCOPICALLY [...] CPT codes included for physician reference only: 01747/29951 MISSAEL GARCIA MD Glucose by meter Result Value Ref Range Glucose 124 (H) 70 - 99 mg/dL A HAND Associated attestation - Olive Bello MD - 11/05/2018 10:58 PM EXTRA HAND ICU STAFF: I have discussed Mr. [...] MD - 11/05/2018 1:[address] [facility] Vascular Medicine Consultation Date of Admission: 11/05/2018 Date of Consult (When I saw the patient): 11/05/18 Physician Supervisory Attestation: I have reviewed and discussed with the physician legal assistant their history, physical and plan and [...] Copy to Dr. Debbie Godoy MD ,[facility] Vascular Medicine 11/05/2018 Assessment & Plan [...] Labs Lab Test 11/05/18 0655 A1C 5.2 A HAND documented in this encounter Nursing Notes Isis Rivera, JOSE - 11/05/2018 8:40 AM CST Noted swelling left ankle A HAND documented in this encounter Miscellaneous Notes [...] sites soft, bruised, CMS intact. Voiding okay. A HAND Plan of Care - Misty Villalobos RN - 11/08/2018 7:10 PM CST A/O x4. AVSS on RA. Tele NSR. Hydralazine given x1. Up SBA. Neuros intact. CMS intact. Groin sites, steri strips. Back site, moist drainage. Pulses, palpable, +2. Regular diet. Chapman removed at 1740, Due to void. A HAND Provider Notification - Aura Crooks RN - 11/08/2018 11:37 AM CST MD NOTIFICATION Person Notified: MDA Notified Person's Name: Yeimi Notification Date/Time: 11/08/2017 1135 Notification Interaction: Paged physician Purpose of Notification: Pt remains to have drainage from lumbar drain site. Orders Received: MDA to come assess pt. A HAND Plan of Care - Kristy Castañeda [...] access readiness for lumbar drain removal today. A HAND Provider Notification - Kristy Castañeda RN [...] assess pulling the drain. Kristy Castañeda RN A HAND Plan of Care - Aura Crooks, JOSE - 11/07/2018 6:17 PM CST Neuro: LUCAS- strength /. PERRL. Complains of soreness in groin/hips from moving them too much. Ptup in chair for a hour and tolerated well. Ok'd with Anesthesia MD, [place], to get up in chair forno more [...] some blood in tubing- Anesthesia MD aware. A HAND Plan of Care - Danette Peck RN - 11/07/2018 1:12 PM CST [id number] Continued with numbness bilateral top of thighs. [...] and dtr in room when Drs here. A HAND Provider Notification - Ramiro Lozano RN - 11/07/2018 6:17 AM CST Paged vascular surgery fellow Ashanti regarding new numbness to anterior thighs. CSF has been drained, will begin 500ml bolus unless directed otherwise. A HAND Plan of Care - Ramiro Lozano [...] clamped now. Daughter Raquel updated this morning. A HAND Provider Notification - Ramiro Lozano RN - 11/07/2018 5:[address] Wang regarding new leg pain and ICP increase. Opening drain for 15ml CSF over 1 hr per order. A HAND Plan of Care - Danette Peck RN - 11/06/2018 4:34 PM CST [id number] Neuro checks remain intact. Able to move [...] be retested for MRSA per infection control. A HAND Plan of Care - Ramiro Lozano [...] this shift. Daughter Raquel updated this morning. A HAND Plan of Care - Danette Peck RN - 11/05/2018 9:43 PM CST [id number] Neuro: intact. Able to move hips slightly [...] by physicians. Care transferred to next nurse. A HAND Provider Notification - Ramiro Lozano RN - 11/05/2018 7:46 PM CST Notified river transportation worker regarding failure to meet MAP goal of 80, new orders received. A HAND Op Note - Butch Brown MD [...] descending aortic angiogram SURGEON: Butch Brown MD GRADE FOREMAN: Kannan Morse MD; Bessy Mas MD - [...] then able to upsized to a 6 Guamanian sheath over a Bentson wire.The patient was [...] femoral artery and upsized to an 11 Guamanian sheath. We then able to insert JULIANE [...] was removed and backfilled with a 16 Guamanian dry seal on the left.At this point [...] superficial femoral artery access which was 6 Guamanian sheath with an Angio-Seal closure device performed [...] the drain. Butch Brown MD Vascular Surgery A HAND Brief Op Note - Bessy Mccray MD - 11/05/2018 12:[address] [facility] Brief Operative Note Pre-operative diagnosis: [...] Palp DP bilaterally Complications: None. Implants: None. A HAND Associated attestation - Butch Brown MD - 11/05/2018 1:09 PM EXTRA HAND Butch Brown MD IR Note - Gwen Rivas RN - 11/05/2018 10:27 AM CST Interventional Radiology Intra-procedural Nursing Note Patient Name: Speedy Hendricks Today's Date: November 05, 2018 Start Time: 849 End of procedure time: 904 Procedure: lumbar drain placement Report given to: Dr. See, anesthesia Time pt departs: 919 Cover Maker: n/a Other Notes: patient tolerated well. Drain connected to closed drainage system flushed with preservative free NS per Dr. Haro. 1mg Versed and 50mcg Fentanyl IV given for additional sedation (had received 4mg Versed and 100mcg Fentanyl in pre-op prior to arrival). SR on monitor .VSS. Patient taken back to pre-op bay in stable condition. Gwen Rivas, towel inspector Radiology A HAND documented in this encounter Plan of Treatment Not on filedocumented as of this encounter Procedures Procedure Name Priority Date/Time Associated Comments Diagnosis CBC WITH PLATELETS & Routine 11/09/2018 7:41 AM Descending tho racic Results for this DIFFERENTIAL EXTRA HAND aortic aneurysm (H) procedur e are in the results section. COMPREHENSIVE Routine 11/09/2018 7:41 AM Descending thoracic R esults for this METABOLIC PANEL EXTRA HAND aortic aneurysm (H) proce dure are in the results section. MAGNESIUM Routine 11/08/2018 3:40 AM Descending thoracic Re sults for this EXTRA HAND aortic aneurysm (H) procedur e are in the results section. COMPREHENSIVE Routine 11/08/2018 3:40 AM Descending thoracic R esults for this METABOLIC PANEL EXTRA HAND aortic aneurysm (H) proce dure are in the results section. CBC WITH PLATELETS Routine 11/08/2018 3:40 AM Descending thora cic Results for this EXTRA HAND aortic aneurysm (H) procedur e are in the results section. CBC WITH PLATELETS STAT 11/07/2018 3:00 PM Descending thora cic Results for this EXTRA HAND aortic aneurysm (H) procedur e are in the results section. CBC WITH PLATELETS & Timed 11/07/2018 9:50 AM Descending tho racic Results for this DIFFERENTIAL EXTRA HAND aortic aneurysm (H) procedur e are in the results section. MAGNESIUM Routine 11/07/2018 9:50 AM Descending thoracic Re sults for this EXTRA HAND aortic aneurysm (H) procedur e are in the results section. BASIC METABOLIC PANEL Timed 11/07/2018 9:50 AM Descending th oracic Results for this EXTRA HAND aortic aneurysm (H) procedur e are in the results section. GLUCOSE BY METER Routine 11/07/2018 7:44 AM Descending thoraci c Results for this EXTRA HAND aortic aneurysm (H) procedur e are in the results section. GLUCOSE BY METER Routine 11/07/2018 3:49 AM Descending thoraci c Results for this EXTRA HAND aortic aneurysm (H) procedur e are in the results section. GLUCOSE BY METER Routine 11/07/2018 12:08 Descending thoracic Results for this AM EXTRA HAND aortic aneurysm (H) procedur e are in the results section. GLUCOSE BY METER Routine 11/06/2018 7:53 PM Descending thoraci c Results for this EXTRA HAND aortic aneurysm (H) procedur e are in the results section. GLUCOSE BY METER Routine 11/06/2018 11:02 Descending thoracic Results for this AM EXTRA HAND aortic aneurysm (H) procedur e are in the results section. GLUCOSE BY METER Routine 11/06/2018 7:38 AM Descending thoraci c Results for this EXTRA HAND aortic aneurysm (H) procedur e are in the results section. LACTIC ACID WHOLE Routine 11/06/2018 4:15 AM Descending thorac ic Results for this BLOOD EXTRA HAND aortic aneurysm (H) procedur e are in the results section. BASIC METABOLIC PANEL Routine 11/06/2018 4:15 AM Descending th oracic Results for this EXTRA HAND aortic aneurysm (H) procedur e are in the results section. CBC WITH PLATELETS Routine 11/06/2018 4:15 AM Descending thora cic Results for this EXTRA HAND aortic aneurysm (H) procedur e are in the results section. GLUCOSE BY METER Routine 11/06/2018 1:12 AM Descending thoraci c Results for this EXTRA HAND aortic aneurysm (H) procedur e are in the results section. MRSA MSSA PCR, NASAL STAT 11/05/2018 11:41 Descending thora cic Results for this SWAB PM EXTRA HAND aortic aneurysm (H) procedur e are in the results section. GLUCOSE BY METER Routine 11/05/2018 8:16 PM Descending thoraci c Results for this EXTRA HAND aortic aneurysm (H) procedur e are in the results section. GLUCOSE BY METER Routine 11/05/2018 4:39 PM Descending thoraci c Results for this EXTRA HAND aortic aneurysm (H) procedur e are in the results section. INR STAT 11/05/2018 4:35 PM Descending thoracic Re sults for this EXTRA HAND aortic aneurysm (H) procedur e are in the results section. LACTIC ACID WHOLE STAT 11/05/2018 4:35 PM Descending thorac ic Results for this BLOOD EXTRA HAND aortic aneurysm (H) procedur e are in the results section. BASIC METABOLIC PANEL STAT 11/05/2018 4:35 PM Descending th oracic Results for this EXTRA HAND aortic aneurysm (H) procedur e are in the results section. CBC WITH PLATELETS STAT 11/05/2018 4:35 PM Descending thora cic Results for this EXTRA HAND aortic aneurysm (H) procedur e are in the results section. IR THORACIC Routine 11/05/2018 12:09 Descending thoracic Resu lts for this ENDOVASCULAR STENT PM EXTRA HAND aortic aneurysm (H) pr ocedure are in GRAFT the results section. REPAIR, ANEURYSM, 11/05/2018 9:35 AM DESCENDING THORAC IC THORACIC AORTIC, EXTRA HAND AORTIC ANEURYSM ENDOVASCULAR Special Needs BLOOD TRANSFUSION ISSUE (RAR E ANTIBODIES) PT WILL DO A TYPE AND CROSS ON 11/03 JALEEL 10/28 IR LUMBAR DRAIN Routine 11/05/2018 9:10 AM Result s for this PLACEMENT W FLUORO EXTRA HAND procedure are in the results section. EKG 12-LEAD, TRACING STAT 11/05/2018 6:58 AM R esults for this ONLY EXTRA HAND procedure are i n the results section. POTASSIUM STAT 11/05/2018 6:55 AM Descending thoracic Re sults for this EXTRA HAND aortic aneurysm (H) procedur e are in the results section. LIPID PROFILE STAT 11/05/2018 6:55 AM Descending thoracic R esults for this EXTRA HAND aortic aneurysm (H) procedur e are in the results section. HEMOGLOBIN A1C STAT 11/05/2018 6:55 AM Descending thoracic Results for this EXTRA HAND aortic aneurysm (H) procedur e are in the results section. CREATININE STAT 11/05/2018 6:55 AM Descending thoracic Re sults for this EXTRA HAND aortic aneurysm (H) procedur e are in the results section. XR CHEST PORT 1 VIEW STAT 11/05/2018 6:40 AM R esults for this EXTRA HAND procedure are i n the results section. EKG CARDIAC - HIM 09/24/2018 12:00 AM SCAN EXTRA HAND documented in this encounter Results (ABNORMAL) CBC with platelets differential (11/09/2018 7:41 AM [facility]) Component Value Ref Test Analysis Performed At [facility] gist Range Method Time Signature WBC 9.3 4.0 - 11/09/2018 [facility] 11.0 8:06 AM [facility] 10e9/L [facility] RBC Count 3.55 (L) 4.4 - 11/09/2018 [facility] 5.9 8:06 AM [facility] 10e12/L [facility] Hemoglobin 11.3 (L) 13.3 - 11/09/2018 [facility] 17.7 8:06 AM [facility] g/dL [facility] Hematocrit 33.7 (L) 40.0 - 11/09/2018 [facility] 53.0 % 8:06 AM [facility] MCV 95 78 - 100 11/09/2018 [facility] fl 8:06 AM [facility] MCH 31.8 26.5 - 11/09/2018 [facility] 33.0 pg 8:06 AM [facility] MCHC 33.5 31.5 - 11/09/2018 [facility] 36.5 8:06 AM [facility] g/dL [facility] RDW 13.9 10.0 - 11/09/2018 [facility] 15.0 % 8:06 AM [facility] Platelet Count 83 (L) 150 - 11/09/2018 [facility] 450 8:[address] Diff Method Manual 11/09/2018 [facility] Differential 8:31 AM [facility] % Neutrophils 85.0 % 11/09/2018 [facility] 8:31 AM [facility] % Lymphocytes 6.0 % 11/09/2018 [facility] 8:31 AM [facility] % Monocytes 7.0 % 11/09/2018 [facility] 8:31 AM [facility] % Eosinophils 2.0 % 11/09/2018 [facility] 8:31 AM [facility] % Basophils 0.0 % 11/09/2018 [facility] 8:31 AM [facility] Absolute 7.9 1.6 - 11/09/2018 [facility] Neutrophil 8.3 8:[address] Absolute 0.6 (L) 0.8 - 11/09/2018 [facility] Lymphocytes 5.3 8:[address] Absolute 0.7 0.0 - 11/09/2018 [facility] Monocytes 1.3 8:[address] Absolute 0.2 0.0 - 11/09/2018 [facility] Eosinophils 0.7 8:[address] Absolute 0.0 0.0 - 11/09/2018 [facility] Basophils 0.2 8:[address] RBC Morphology Consistent with 11/09/2018 [facility] reported results 8:31 AM [facility] Platelet Automated count 11/09/2018 [facility] Estimate confirmed. 8:31 AM [facility] morphology is normal. Specimen Anatomical Collection Method Collection Time Receive d Time (Source) Location / / Volume Laterality Blood specimen 11/09/2018 7:41 AM 019 7:51 (specimen) EXTRA HAND AM EXTRA HAND Dimas Chapman MD LAB - BLOOD ORDERABLES Performing Organization Address City/State/ZIP Code Phon e Number [facility] [address] [place] [address] [phone] [facility] [address] [place] [address], U [phone] (ABNORMAL) Comprehensive metabolic panel (11/09/2018 7:41 AM EXTRA HAND) athologist Signature Sodium 144 133 - 144 11/09/2018 [place] [place] mmol/L 8:11 AM [facility] Potassium 4.0 3.4 - 5.3 11/09/2018 [place] mmol/L 8:11 AM [facility] Chloride 113 (H) 94 - 109 11/09/2018 [place] mmol/L 8:11 AM [facility] Carbon Dioxide 22 20 - 32 11/09/2018 [place] mmol/L 8:17 AM [facility] Anion Gap 9 3 - 14 11/09/2018 [place] mmol/L 8:17 AM [facility] Glucose 94 70 - 99 11/09/2018 [place] mg/dL 8:17 AM [facility] Urea Nitrogen 21 7 - 30 11/09/2018 [place] mg/dL 8:17 AM [facility] Creatinine 1.24 0.66 - 11/09/2018 [place] 1.25 mg/dL 8:17 AM [facility] GFR Estimate 56 (L) >60 11/09/2018 [place] mL/min/{1. 8:17 AM [facility] 73_m2} HOSPITAL Comment: Non GFR Calc Starting 10/05/2018, serum creatinine ba sed estimated GFR (eGFR) will be calculated using the Chronic Kidney Dise ase Epidemiology Collaboration (CKD-EPI) equation. GFR Estimate If 65 >60 mL/min/{1.73_m2} 11/09/2018 8: 17 AM [facility] Comment: GFR Calc Starting 10/05/2018, serum creatinine ba sed estimated GFR (eGFR) will be calculated using the Chronic Kidney Dise ase Epidemiology Collaboration (CKD-EPI) equation. Calcium 8.4 (L) 8.5 - 10.1 11/09/2018 8:17 AM [facility] mg/dL [facility] Bilirubin Total 1.3 0.2 - 1.3 mg/dL 11/09/2018 8:19 AM [facility] Albumin 2.4 (L) 3.4 - 5.0 g/dL 11/09/2018 8:19 AM [facility] Protein Total 6.2 (L) 6.8 - 8.8 g/dL 11/09/2018 8:19 AM [facility] Alkaline Phosphatase 72 40 - 150 U/L 11/09/2018 8:19 AM [facility] ALT 17 0 - 70 U/L 11/09/2018 8:19 AM [facility] AST 15 0 - 45 U/L 11/09/2018 8:19 AM [facility] Specimen Anatomical Collection Method Collection Time Receive d Time (Source) Location / / Volume Laterality Blood specimen 11/09/2018 7:41 AM 019 7:51 (specimen) EXTRA HAND AM EXTRA HAND Dimas Chapman MD LAB - BLOOD ORDERABLES Performing Organization Address City/State/ZIP Code Phon e Number [facility] [address] [address] [facility] [address] [address], [facility] [phone] Magnesium Level scheduled every Thu Wed Thu (11/08/2018 3:40 AM EXTRA HAND) P athologist Signature Magnesium 1.7 1.6 - 2.3 11/08/2018 [place] mg/dL 4:06 AM [facility] Specimen Anatomical Collection Method Collection Time Receive d Time (Source) Location / / Volume Laterality Blood specimen 11/08/2018 3:40 AM 019 3:46 (specimen) EXTRA HAND AM EXTRA HAND Dimas Chapman MD LAB - BLOOD ORDERABLES Performing Organization Address City/State/ZIP Code Phon e Number [facility] [address] [address] [phone] [facility] [address] [place], [place] [address], U [phone] (ABNORMAL) Comprehensive metabolic panel (11/08/2018 3:40 AM [facility]) Analysis Performed At Patho logist Time Signature Sodium 142 133 - 144 11/08/2018 [place] mmol/L 3:58 AM [facility] Potassium 4.2 3.4 - 5.3 11/08/2018 [facility] mmol/L 3:58 AM [facility] Chloride 111 (H) 94 - 109 11/08/2018 [place] mmol/L 3:58 AM [facility] Carbon Dioxide 22 20 - 32 11/08/2018 [place] mmol/L 4:04 AM [facility] [facility] Anion Gap 9 3 - 14 11/08/2018 [facility] mmol/L 4:04 AM [facility] Glucose 164 (H) 70 - 99 11/08/2018 [facility] mg/dL 4:04 AM [facility] Urea Nitrogen 20 7 - 30 11/08/2018 [facility] mg/dL 4:04 AM [facility] Creatinine 1.29 (H) 0.66 - 11/08/2018 [place] 1.25 mg/dL 4:04 AM [facility] GFR Estimate 53 (L) >60 11/08/2018 [facility] mL/min/{1. 4:04 AM [facility] 73_m2} HOSPITAL Comment: Non GFR Calc Starting 10/05/2018, serum creatinine ba sed estimated GFR (eGFR) will be calculated using the Chronic Kidney Dise [facility] Epidemiology Collaboration (CKD-EPI) equation. GFR Estimate If 62 >60 mL/min/{1.73_m2} 11/08/2018 4: 04 AM [facility] Comment: GFR Calc Starting 10/05/2018, serum creatinine ba sed estimated GFR (eGFR) will be calculated using the Chronic Kidney Dise [facility] Epidemiology Collaboration (CKD-EPI) equation. Calcium 8.2 (L) 8.5 - 10.1 11/08/2018 4:04 AM [facility] [place] mg/dL [facility] Bilirubin Total 1.1 0.2 - 1.3 mg/dL 11/08/2018 4:06 AM [facility] Albumin 2.6 (L) 3.4 - 5.0 g/dL 11/08/2018 4:06 AM [facility] Protein Total 6.0 (L) 6.8 - 8.8 g/dL 11/08/2018 4:06 AM [facility] Alkaline Phosphatase 62 40 - 150 U/L 11/08/2018 4:06 AM [facility] ALT 18 0 - 70 U/L 11/08/2018 4:06 AM [facility] AST 19 0 - 45 U/L 11/08/2018 4:06 AM [facility] Specimen Anatomical Collection Method Collection Time Receive d Time (Source) Location / / Volume Laterality Blood specimen 11/08/2018 3:40 AM 019 3:46 (specimen) EXTRA HAND AM [facility] Gurwinder Godoy MD LAB - BLOOD ORDERABLES Performing Organization Address City/State/ZIP Code Phon e Number [facility] [address] [address] [facility] [address] [address], U [phone] (ABNORMAL) CBC (AM Draw) (11/08/2018 3:40 AM [facility]) Analysis Performed At Patho logist Time Signature WBC 11.2 (H) 4.0 - 11.0 11/08/2018 [facility] 10e9/L 3:50 AM [facility] RBC Count 3.62 (L) 4.4 - 5.9 11/08/2018 [facility] 10e12/L 3:50 AM [facility] Hemoglobin 11.6 (L) 13.3 - 11/08/2018 [facility] 17.7 g/dL 3:50 AM [facility] Hematocrit 34.5 (L) 40.0 - 11/08/2018 [facility] 53.0 % 3:50 AM [facility] MCV 95 78 - 100 11/08/2018 [facility] fl 3:50 AM [facility] MCH 32.0 26.5 - 11/08/2018 [facility] 33.0 pg 3:50 AM [facility] MCHC 33.6 31.5 - 11/08/2018 [facility] 36.5 g/dL 3:50 AM [facility] RDW 13.9 10.0 - 11/08/2018 [facility] 15.0 % 3:50 AM [facility] Platelet Count 82 (L) 150 - 450 11/08/2018 [facility] 10e9/L 3:50 AM [facility] Specimen Anatomical Collection Method Collection Time Receive d Time (Source) Location / / Volume Laterality Blood specimen 11/08/2018 3:40 AM 019 3:46 (specimen) EXTRA HAND AM [facility] Gurwinder Godoy MD LAB - BLOOD ORDERABLES Performing Organization Address City/State/ZIP Code Phon e Number [facility] [address] [address] [phone] [facility] [address] [address], [facility] [phone] (ABNORMAL) CBC with platelets (11/07/2018 3:00 PM [facility]) Analysis Performed At Patho logist Time Signature WBC 11.1 (H) 4.0 - 11.0 11/07/2018 [facility] 10e9/L 3:08 PM [facility] RBC Count 3.74 (L) 4.4 - 5.9 11/07/2018 [facility] 10e12/L 3:08 PM [facility] Hemoglobin 11.9 (L) 13.3 - 11/07/2018 [facility] 17.7 g/dL 3:08 PM [facility] Hematocrit 35.4 (L) 40.0 - 11/07/2018 [facility] 53.0 % 3:08 PM [facility] MCV 95 78 - 100 11/07/2018 [facility] fl 3:08 PM [facility] MCH 31.8 26.5 - 11/07/2018 [facility] 33.0 pg 3:08 PM [facility] MCHC 33.6 31.5 - 11/07/2018 [facility] 36.5 g/dL 3:08 PM [facility] RDW 14.1 10.0 - 11/07/2018 [facility] 15.0 % 3:08 PM [facility] Platelet Count 87 (L) 150 - 450 11/07/2018 [facility] 10e9/L 3:08 PM [facility] Specimen Anatomical Collection Method Collection Time Receive d Time (Source) Location / / Volume Laterality Blood specimen 11/07/2018 3:00 PM 019 3:05 (specimen) EXTRA HAND PM EXTRA HAND Bart Feliciano MD LAB - BLOOD ORDERABLES Performing Organization Address City/State/ZIP Code Phon e Number [facility] [address] [place] [address] [facility] [address] [place] [address], [place] [phone] Magnesium (11/07/2018 9:50 AM [facility]) P athologist Signature Magnesium 1.6 1.6 - 2.3 11/07/2018 [facility] mg/dL 11:12 AM [facility] Specimen Anatomical Collection Method Collection Time Receive d Time (Source) Location / / Volume Laterality 11/07/2018 9:50 AM 9 EXTRA [facility] 10:04 AM [facility] Gurwinder Godoy MD LAB - BLOOD ORDERABLES Performing Organization Address City/State/ZIP Code Phon e Number [facility] [address] [place] [address] [phone] [facility] [address] [place] [address], [place] [phone] (ABNORMAL) CBC with platelets differential (11/07/2018 9:50 AM EX[facility]) Patholo gist Method Time Signature WBC 10.4 4.0 - 11/07/2018 [facility] 11.0 10:13 AM [facility] 10e9/L [facility] RBC Count 3.63 (L) 4.4 - 5.9 11/07/2018 [facility] 10e12/L 10:13 AM [facility] Hemoglobin 11.5 (L) 13.3 - 11/07/2018 [facility] 17.7 g/dL 10:13 AM [facility] Hematocrit 34.3 (L) 40.0 - 11/07/2018 [facility] 53.0 % 10:13 AM [facility] MCV 95 78 - 100 11/07/2018 [facility] fl 10:13 AM [facility] MCH 31.7 26.5 - 11/07/2018 [facility] 33.0 pg 10:13 AM [facility] MCHC 33.5 31.5 - 11/07/2018 [facility] 36.5 g/dL 10:13 AM [facility] RDW 14.0 10.0 - 11/07/2018 [facility] 15.0 % 10:13 AM [facility] Platelet Count 82 (L) 150 - 450 11/07/2018 [facility] 10e9/L 10:37 AM [facility] Diff Method Automated 11/07/2018 [facility] Method 10:37 AM [facility] % Neutrophils 78.8 % 11/07/2018 [facility] 10:37 AM [facility] % Lymphocytes 6.2 % 11/07/2018 [facility] 10:37 AM [facility] % Monocytes 14.7 % 11/07/2018 [facility] 10:37 AM [facility] % Eosinophils 0.2 % 11/07/2018 [facility] 10:37 AM [facility] % Basophils 0.0 % 11/07/2018 [facility] 10:37 AM [facility] % Immature 0.1 % 11/07/2018 [facility] Granulocytes 10:37 AM [facility] Nucleated RBCs 0 0 /100 11/07/2018 [facility] 10:37 AM [facility] Absolute 8.2 1.6 - 8.3 11/07/2018 [facility] Neutrophil 10e9/L 10:37 AM [facility] Absolute 0.6 (L) 0.8 - 5.3 11/07/2018 [facility] Lymphocytes 10e9/L 10:37 AM [facility] Absolute 1.5 (H) 0.0 - 1.3 11/07/2018 [facility] Monocytes 10e9/L 10:37 AM [facility] Absolute 0.0 0.0 - 0.7 11/07/2018 [facility] Eosinophils 10e9/L 10:37 AM [facility] Absolute 0.0 0.0 - 0.2 11/07/2018 [facility] Basophils 10e9/L 10:37 AM [facility] Abs Immature 0.0 0 - 0.4 11/07/2018 [facility] Granulocytes 10e9/L 10:37 AM [facility] Absolute 0.0 11/07/2018 [facility] Nucleated RBC 10:37 AM [facility] Ovalocytes Slight 11/07/2018 [facility] 10:37 AM [facility] Platelet Automated 11/07/2018 [facility] Estimate count 10:37 AM [facility] confirmed. [facility] Platelet morphology is normal. Specimen Anatomical Collection Method Collection Time Receive d Time (Source) Location / / Volume Laterality Blood specimen 11/07/2018 9:50 AM 019 (specimen) EXTRA HAND 10:04 AM [facility] Gurwinder Godoy MD LAB - BLOOD ORDERABLES Performing Organization Address City/State/ZIP Code Phon e Number [facility] [address] [address] [facility] [address] [place] [address], [place] [phone] (ABNORMAL) Basic metabolic panel (11/07/2018 9:50 AM [facility]) Analysis Performed At Patho logist Time Signature Sodium 147 (H) 133 - 144 11/07/2018 [place] mmol/L 10:16 AM [facility] Potassium 4.1 3.4 - 5.3 11/07/2018 [place] mmol/L 10:16 AM [facility] Chloride 117 (H) 94 - 109 11/07/2018 [place] mmol/L 10:16 AM [facility] Carbon Dioxide 20 20 - 32 11/07/2018 [place] mmol/L 10:23 AM [facility] Anion Gap 10 3 - 14 11/07/2018 [place] mmol/L 10:23 AM [facility] Glucose 108 (H) 70 - 99 11/07/2018 [facility] mg/dL 10:23 AM [facility] Urea Nitrogen 23 7 - 30 11/07/2018 [place] mg/dL 10:23 AM [facility] Creatinine 1.47 (H) 0.66 - 11/07/2018 [facility] 1.25 mg/dL 10:23 AM [facility] GFR Estimate 46 (L) >60 11/07/2018 [facility] [place] mL/min/{1. 10:23 AM [facility] 73_m2} HOSPITAL Comment: Non GFR Calc Starting 10/05/2018, serum creatinine ba sed estimated GFR (eGFR) will be calculated using the Chronic Kidney Dise [facility] Epidemiology Collaboration (CKD-EPI) equation. GFR Estimate If 53 (L) >60 mL/min/{1.73_m2} 11/07/2018 10 :23 AM [facility] Comment: GFR Calc Starting 10/05/2018, serum creatinine ba sed estimated GFR (eGFR) will be calculated using the Chronic Kidney Dise [facility] Epidemiology Collaboration (CKD-EPI) equation. Calcium 8.2 (L) 8.5 - 10.1 mg/dL 11/07/2018 10:23 AM [facility] Specimen Anatomical Collection Method Collection Time Receive d Time (Source) Location / / Volume Laterality Blood specimen 11/07/2018 9:50 AM 019 (specimen) EXTRA HAND 10:04 AM [facility] Gurwinder Godoy MD LAB - BLOOD ORDERABLES Performing Organization Address City/State/ZIP Code Phon e Number [facility] [address] [address] [phone] [facility] [address] [address], [facility] [phone] (ABNORMAL) Glucose by meter (11/07/2018 7:44 AM [facility]) P athologist Signature Glucose 112 (H) 70 - 99 11/07/2018 [facility] mg/dL 7:56 AM [facility] TEST, GLUCOSE Specimen Anatomical Collection Method Collection Time Receive d Time (Source) Location / / Volume Laterality 11/07/2018 7:44 AM 9 7:56 EXTRA HAND AM EX[facility] Juan Lewis MD LAB - BEAKER POCT Performing Organization Address City/State/ZIP Code Phon e Number [facility] POINT OF CARE TEST, GLUCOSE POINT OF CARE TEST, GLUCOSE (ABNORMAL) Glucose by meter (11/07/2018 3:49 AM [facility]) P athologist Signature Glucose 105 (H) 70 - 99 11/07/2018 [facility] mg/dL 4:01 AM [facility] TEST, GLUCOSE Specimen Anatomical Collection Method Collection Time Receive d Time (Source) Location / / Volume Laterality 11/07/2018 3:49 AM 9 4:01 EXTRA HAND AM EXTRA [facility] Juan Lewis MD LAB - BEFOUZIA POCT Performing Organization Address City/[facility]/ZIP Code Phon e Number [facility] POINT OF CARE TEST, GLUCOSE POINT OF CARE TEST, GLUCOSE (ABNORMAL) Glucose by meter (11/07/2018 12:08 AM [facility]) P athologist Signature Glucose 119 (H) 70 - 99 11/07/2018 [facility] mg/dL 12:19 AM EX[facility] TEST, GLUCOSE Specimen Anatomical Collection Method Collection Time Receive d Time (Source) Location / / Volume Laterality 11/07/2018 12:08 11/07/2018 AM EXTRA [facility] 12:19 AM EXTRA HAND Juan YUAN - CAROLYN POCT Performing Organization Address [facility] Code Phon e Number [facility] POINT OF CARE TEST, GLUCOSE POINT OF CARE TEST, GLUCOSE (ABNORMAL) Glucose by meter (11/06/2018 7:53 PM EXTRA [facility]) P athologist Signature Glucose 116 (H) 70 - 99 11/06/2018 [facility] mg/dL 8:04 PM EXTRA [facility] TEST, GLUCOSE Specimen Anatomical Collection Method Collection Time Receive d Time (Source) Location / / Volume Laterality 11/06/2018 7:53 PM 9 8:04 EXTRA HAND PM EXTRA HAND Juan YUAN - CAROLYN POCT Performing Organization Address City/[facility] Code Phon e Number [facility] POINT OF CARE TEST, GLUCOSE POINT OF CARE TEST, GLUCOSE (ABNORMAL) Glucose by meter (11/06/2018 11:02 AM EX[facility]) P athologist Signature Glucose 109 (H) 70 - 99 11/06/2018 [facility] mg/dL 11:13 AM EXTRA [facility] TEST, GLUCOSE Specimen Anatomical Collection Method Collection Time Receive d Time (Source) Location / / Volume Laterality 11/06/2018 11:02 11/06/2018 AM [facility] 11:13 AM EXTRA [facility] Juan YUAN - CAROLYN POCT Performing Organization Address City/[facility]/ZIP Code Phon e Number [facility] POINT OF CARE TEST, GLUCOSE POINT OF CARE TEST, GLUCOSE (ABNORMAL) Glucose by meter (11/06/2018 7:38 AM [facility]) P athologist Signature Glucose 104 (H) 70 - 99 11/06/2018 [facility] mg/dL 7:50 AM EX[facility] TEST, GLUCOSE Specimen Anatomical Collection Method Collection Time Receive d Time (Source) Location / / Volume Laterality 11/06/2018 7:38 AM 9 7:50 EXTRA HAND AM EXTRA HAND Juan Lewis MD LAB - BEAKER POCT Performing Organization Address City/State/ZIP Code Phon e Number [facility] POINT OF CARE TEST, GLUCOSE POINT OF CARE TEST, GLUCOSE Lactic acid whole blood (11/06/2018 4:15 AM EX[facility]) athologist Signature Lactic Acid 1.4 0.7 - 2.0 11/06/2018 [facility] mmol/L 4:40 AM [facility] Specimen Anatomical Collection Method Collection Time Receive d Time (Source) Location / / Volume Laterality Blood specimen 11/06/2018 4:15 AM 019 4:25 (specimen) EXTRA HAND AM EX[facility] Bessy Mccray MD LAB - BLOOD ORDERABLES Performing Organization Address City/State/ZIP Code Phon e Number [facility] [address], [place] [address] [phone] [facility] [address] [place] [address], [facility] [phone] (ABNORMAL) Basic metabolic panel (11/06/2018 4:15 AM [facility]) Analysis Performed At Patho logist Time Signature Sodium 142 133 - 144 11/06/2018 [facility] mmol/L 4:49 AM [facility] Potassium 4.4 3.4 - 5.3 11/06/2018 [facility] mmol/L 4:49 AM [facility] Chloride 113 (H) 94 - 109 11/06/2018 [facility] mmol/L 4:49 AM [facility] Carbon Dioxide 21 20 - 32 11/06/2018 [facility] mmol/L 4:54 AM [facility] Anion Gap 8 3 - 14 11/06/2018 [facility] mmol/L 4:54 AM [facility] Glucose 115 (H) 70 - 99 11/06/2018 [place] mg/dL 4:54 AM [facility] Urea Nitrogen 27 7 - 30 11/06/2018 [place] mg/dL 4:54 AM [facility] Creatinine 1.57 (H) 0.66 - 11/06/2018 [place] 1.25 mg/dL 4:54 AM [facility] GFR Estimate 42 (L) >60 11/06/2018 [place] mL/min/{1. 4:54 AM [facility] 73_m2} HOSPITAL Comment: Non GFR Calc Starting 10/05/2018, serum creatinine ba sed estimated GFR (eGFR) will be calculated using the Chronic Kidney Dise [facility] Epidemiology Collaboration (CKD-EPI) equation. GFR Estimate If 49 (L) >60 mL/min/{1.73_m2} 11/06/2018 4: 54 AM [facility] Comment: GFR Calc Starting 10/05/2018, serum creatinine ba sed estimated GFR (eGFR) will be calculated using the Chronic Kidney Dise [facility] Epidemiology Collaboration (CKD-EPI) equation. Calcium 7.8 (L) 8.5 - 10.1 mg/dL 11/06/2018 4:54 AM [facility] Specimen Anatomical Collection Method Collection Time Receive d Time (Source) Location / / Volume Laterality Blood specimen 11/06/2018 4:15 AM 019 4:25 (specimen) EXTRA HAND AM [facility] Bessy Mccray MD LAB - BLOOD ORDERABLES Performing Organization Address City/State/ZIP Code Phon e Number [facility] [address] [address] [phone] [facility] [address] [address], U [phone] (ABNORMAL) CBC with platelets (11/06/2018 4:15 AM [facility]) Analysis Performed At Patho logist Time Signature WBC 12.9 (H) 4.0 - 11.0 11/06/2018 [facility] 10e9/L 4:45 AM [facility] RBC Count 3.93 (L) 4.4 - 5.9 11/06/2018 [facility] 10e12/L 4:45 AM [facility] Hemoglobin 12.5 (L) 13.3 - 11/06/2018 [facility] 17.7 g/dL 4:45 AM [facility] Hematocrit 36.8 (L) 40.0 - 11/06/2018 [facility] 53.0 % 4:45 AM [facility] MCV 94 78 - 100 11/06/2018 [facility] fl 4:45 AM [facility] MCH 31.8 26.5 - 11/06/2018 [facility] 33.0 pg 4:45 AM [facility] MCHC 34.0 31.5 - 11/06/2018 [facility] 36.5 g/dL 4:45 AM [facility] RDW 13.2 10.0 - 11/06/2018 [facility] 15.0 % 4:45 AM [facility] Platelet Count 153 150 - 450 11/06/2018 [facility] 10e9/L 4:45 AM [facility] Specimen Anatomical Collection Method Collection Time Receive d Time (Source) Location / / Volume Laterality Blood specimen 11/06/2018 4:15 AM 019 4:25 (specimen) EXTRA HAND AM [facility] Bessy Mccray MD LAB - BLOOD ORDERABLES Performing Organization Address City/State/ZIP Code Phon e Number [facility] [address] [address] [phone] [facility] [address] [address], [facility] [phone] (ABNORMAL) Glucose by meter (11/06/2018 1:12 AM [facility]) P athologist Signature Glucose 126 (H) 70 - 99 11/06/2018 [facility] mg/dL 1:24 AM [facility] TEST, GLUCOSE Specimen Anatomical Collection Method Collection Time Receive d Time (Source) Location / / Volume Laterality 11/06/2018 1:12 AM 9 1:24 EXTRA HAND AM EXTRA HAND Juan Lewis MD LAB - BEAKER POCT Performing Organization Address City/State/ZIP Code Phon e Number [facility] POINT OF CARE TEST, GLUCOSE POINT OF CARE TEST, GLUCOSE Methicillin Resist/Sens S. aureus PCR (11/05/2018 11:41 PM EXTRA HAND) [facility] gist Method Time Signature Specimen Nares 11/05/2018 [facility] Description 11:45 PM EXTRA HAND [facility] Methicillin Negative NEG^Negat 11/06/2018 [facility]/Sens S. shin 2:36 AM [facility] aureus PCR [facility] Comment: MRSA Negative: SA Negative ??MRSA and St aphylococcus aureus target DNA not detected, presumed negative for MRSA and SA colonization or the number of bacteria present may be below the limit of detection for the assay. FDA approved assay performed using [employer] eneXpert(R) real-time PCR. Specimen (Source) Anatomical Collection Method Collection Time Re ceived Time Location / / Volume Laterality Nasal structure 11/05/2018 11:41 11/06/19 19 (body structure) PM EXTRA HAND Bessy Mccray MD LAB - MICRO GENERAL ORDERABL ES Performing Organization Address City/State/ZIP Code Phon e Number [facility] [address] [place] [address] [facility] [address] [place] [address], [place] [phone] (ABNORMAL) Glucose by meter (11/05/2018 8:16 PM EXTRA [facility]) P athologist Signature Glucose 128 (H) 70 - 99 11/05/2018 [facility] mg/dL 8:28 PM EXTRA HAND TEST, GLUCOSE Specimen Anatomical Collection Method Collection Time Receive d Time (Source) Location / / Volume Laterality 11/05/2018 8:16 PM 9 8:28 EXTRA HAND PM EXTRA HAND Juan YUAN - BEFOUZIA POCT Performing Organization Address City/State/ZIP Code Phon e Number [facility] POINT OF CARE TEST, GLUCOSE POINT OF CARE TEST, GLUCOSE (ABNORMAL) Glucose by meter (11/05/2018 4:39 PM EX[facility]) P athologist Signature Glucose 124 (H) 70 - 99 11/05/2018 [facility] mg/dL 4:50 PM EXTRA HAND TEST, GLUCOSE Specimen Anatomical Collection Method Collection Time Receive d Time (Source) Location / / Volume Laterality 11/05/2018 4:39 PM 9 4:50 EXTRA HAND PM EXTRA HAND Juan YUAN - BEAKER POCT Performing Organization Address City/State/ZIP Code Phon e Number [facility] POINT OF CARE TEST, GLUCOSE POINT OF CARE TEST, GLUCOSE (ABNORMAL) CBC with platelets (11/05/2018 4:35 PM EX[facility]) Analysis Performed At Patho logist Time Signature WBC 7.3 4.0 - 11.0 11/05/2018 [facility] 10e9/L 5:22 PM [facility] RBC Count 4.35 (L) 4.4 - 5.9 11/05/2018 [facility] 10e12/L 5:22 PM [facility] Hemoglobin 13.7 13.3 - 11/05/2018 [facility] 17.7 g/dL 5:22 PM [facility] Hematocrit 40.9 40.0 - 11/05/2018 [facility] 53.0 % 5:22 PM [facility] MCV 94 78 - 100 11/05/2018 [facility] fl 5:22 PM [facility] MCH 31.5 26.5 - 11/05/2018 [facility] 33.0 pg 5:22 PM [facility] MCHC 33.5 31.5 - 11/05/2018 [facility] 36.5 g/dL 5:22 PM [facility] RDW 13.1 10.0 - 11/05/2018 [facility] 15.0 % 5:22 PM [facility] Platelet Count 108 (L) 150 - 450 11/05/2018 [facility] 10e9/L 5:22 PM [facility] Specimen Anatomical Collection Method Collection Time Receive d Time (Source) Location / / Volume Laterality Blood specimen 11/05/2018 4:35 PM 019 5:17 (specimen) EXTRA HAND PM EXTRA HAND Bessy Mccray MD LAB - BLOOD ORDERABLES Performing Organization Address City/[facility]/ZIP Code Phon e Number [facility] [address] [address] [phone] [facility] [address] [address], U [phone] INR (11/05/2018 4:35 PM EXTRA HAND) P athologist Signature INR 1.03 0.86 - 1.14 11/05/2018 [facility] 5:33 PM [facility] Specimen Anatomical Collection Method Collection Time Receive d Time (Source) Location / / Volume Laterality Blood specimen 11/05/2018 4:35 PM 019 5:17 (specimen) EXTRA HAND PM EXTRA HAND Bessy Mccray MD LAB - BLOOD ORDERABLES Performing Organization Address City/State/ZIP Code Phon e Number [facility] [address] [place] [address] [phone] [facility] [address] [place] [address], [place] [phone] Lactic acid whole blood (11/05/2018 4:35 PM EXTRA HAND) P athologist Signature Lactic Acid 1.0 0.7 - 2.0 11/05/2018 [facility] mmol/L 5:57 PM [facility] Specimen Anatomical Collection Method Collection Time Receive d Time (Source) Location / / Volume Laterality Blood specimen 11/05/2018 4:35 PM 019 5:18 (specimen) EXTRA HAND PM EXTRA HAND Bessy Mccray MD LAB - BLOOD ORDERABLES Performing Organization Address City/State/ZIP Code Phon e Number [facility] [address] [place] [address] [phone] [facility] [address] [place] [address], [place] [phone] (ABNORMAL) Basic metabolic panel (11/05/2018 4:35 PM EXTRA [facility]) Analysis Performed At Patho logist Time Signature Sodium 143 133 - 144 11/05/2018 [place] mmol/L 5:38 PM [facility] Potassium 4.3 3.4 - 5.3 11/05/2018 [place] mmol/L 5:38 PM [facility] Chloride 113 (H) 94 - 109 11/05/2018 [place] mmol/L 5:38 PM [facility] Carbon Dioxide 22 20 - 32 11/05/2018 [facility] mmol/L 5:43 PM [facility] Anion Gap 8 3 - 14 11/05/2018 [place] mmol/L 5:43 PM [facility] Glucose 121 (H) 70 - 99 11/05/2018 [place] mg/dL 5:43 PM [facility] Urea Nitrogen 24 7 - 30 11/05/2018 [place] mg/dL 5:43 PM [facility] Creatinine 1.30 (H) 0.66 - 11/05/2018 [place] 1.25 mg/dL 5:43 PM [facility] GFR Estimate 53 (L) >60 11/05/2018 [place] mL/min/{1. 5:43 PM [facility] 73_m2} [facility]OSPITAL Comment: Non GFR Calc Starting 10/05/2018, serum creatinine ba sed estimated GFR (eGFR) will be calculated using the Chronic Kidney Dise [facility] Epidemiology Collaboration (CKD-EPI) equation. GFR Estimate If 61 >60 mL/min/{1.73_m2} 11/05/2018 5: 43 PM [facility] Comment: GFR Calc Starting 10/05/2018, serum creatinine ba sed estimated GFR (eGFR) will be calculated using the Chronic Kidney Dise [facility] Epidemiology Collaboration (CKD-EPI) equation. Calcium 8.6 8.5 - 10.1 mg/dL 11/05/2018 5:43 PM [facility] Specimen Anatomical Collection Method Collection Time Receive d Time (Source) Location / / Volume Laterality Blood specimen 11/05/2018 4:35 PM 019 5:17 (specimen) EXTRA HAND PM EXTRA HAND Bessy Mccray MD LAB - BLOOD ORDERABLES Performing Organization Address City/State/ZIP Code Phon e Number [facility] [address] [address] [facility] [address] [address], [facility] [phone] IR Thoracic Endovascular Stent Graft (11/05/2018 12:09 PM EXTRA HAND) Anatomical Region Laterality Modality Chest Radio Fluoroscopy Specimen (Source) Anatomical Location Collection Method / Collectio n Time Received Time / Laterality Volume Impressions 11/06/2018 3:33 PM EXTRA HAND IMPRESSION: Successful deployment in 2 components [...] KANNAN MORSE MD Narrative 11/06/2018 3:33 PM EXTRA HAND INTERVENTIONAL RADIOLOGY THORACIC ENDOVASCULAR STENT GRAFT [...] cm. Plan is for endovascular repair with [employer] Valiant Navion stent graft system. TECHNIQUE: Please [...] tion. Over a series of maneuvers, 6 Guamanian vascular sheath was placed. From left groin [...] cm. Plan is for endovascular repair with [employer] Valiant Navion stent graft system. TECHNIQUE: Please [...] tion. Over a series of maneuvers, 6 Guamanian vascular sheath was placed. From left groin [...] Drain Placement w Fluoro (11/05/2018 9:10 AM EXTRA HAND) Anatomical Region Laterality Modality Spine Radio Fluoroscopy Specimen (Source) Anatomical Location Collection Method / Collectio n Time Received Time / Laterality Volume Narrative 11/05/2018 9:19 AM EXTRA HAND [facility] RADIOLOGY INTERVENTIONAL NEURORADIOLOGY PROCEDURAL NOTE FLUOROSCOPICALLY [...] codes included for physician barbara ce only: [id number] MISSAEL GARCIA MD Procedure Note Missael Garcia MD - 11/05/2018For matting of this note might be different from the original. [facility] RADIOLOGY INTERVENTIONAL NEURORADIOLOGY PROCEDURAL NOTE FLUOROSCOPICALLY [...] codes included for physician referen ce only: [id number] MISSAEL GARCIA MD Butch Brown MD IMG IR ORDERABLES EKG 12-lead, tracing only (11/05/2018 6:58 AM EXTRA HAND) [facility] gist Method Time Signature Interpretation ECG Click View RADIOLOGY Image link RESULTS to view waveform and result Specimen (Source) Anatomical Collection Method Collection Time Re ceived Time Location / / Volume Laterality 11/05/2018 6:58 AM EXTRA HAND Juan Lewis MD ECG ORDERABLES Performing Organization Address City/State/ZIP Code Phon e Number RADIOLOGY RESULTS Potassium (11/05/2018 6:55 AM EXTRA HAND) athologist Signature Potassium 4.3 3.4 - 5.3 11/05/2018 [place] [place] mmol/L 7:15 AM EXTRA HAND [facility] Specimen Anatomical Collection Method Collection Time Receive d Time (Source) Location / / Volume Laterality Blood specimen 11/05/2018 6:55 AM 019 6:56 (specimen) EXTRA HAND AM EXTRA HAND Zakia Tobin MD LAB - BLOOD ORDERABLES Performing Organization Address City/State/ZIP Code Phon e Number [facility] [address] [address] [facility] [address] [place] [address], [place] [phone] Lipid panel (11/05/2018 6:55 AM [facility]) Analysis Performed At Patho logist Time Signature Cholesterol 128 <200 mg/dL 11/05/2018 [facility] 7:20 AM [facility] Triglycerides 125 <150 mg/dL 11/05/2018 [facility] 7:21 AM [facility] HDL Cholesterol 59 >39 mg/dL 11/05/2018 [facility] 7:23 AM [facility] LDL Cholesterol 44 <100 mg/dL 11/05/2018 [facility] Calculated 7:23 AM [facility] Comment: Desirable: <100 mg/dl Non HDL Cholesterol 69 <130 mg/dL 11/05/2018 7:23 AM [facility] Specimen Anatomical Collection Method Collection Time Receive d Time (Source) Location / / Volume Laterality Blood specimen 11/05/2018 6:55 AM 019 6:56 (specimen) EXTRA HAND AM EXTRA HAND Juan Lewis MD LAB - BLOOD ORDERABLES Performing Organization Address City/State/ZIP Code Phon e Number [facility] [address] [place] [address] [facility] [address] [place] [address], [place] [phone] Hemoglobin A1c (11/05/2018 6:55 AM EXTRA HAND) P athologist Signature Hemoglobin A1C 5.2 0 - 5.6 % 11/05/2018 [facility] 7:30 AM [facility] Comment: Normal <5.7% Prediabetes 5.7-6.4% ??Diab etes 6.5% or higher - adopted from ADA consensus guidelines. Specimen Anatomical Collection Method Collection Time Receive d Time (Source) Location / / Volume Laterality Blood specimen 11/05/2018 6:55 AM 019 6:56 (specimen) EXTRA HAND AM EXTRA HAND Juan Lewis MD LAB - BLOOD ORDERABLES Performing Organization Address City/State/ZIP Code Phon e Number [facility] [address] [address] [facility] [address] [address], [place] [phone] (ABNORMAL) Creatinine (11/05/2018 6:55 AM EXTRA HAND) athologist Signature Creatinine 1.52 (H) 0.66 - 11/05/2018 [place] 1.25 mg/dL 7:20 AM [facility] GFR Estimate 44 (L) >60 11/05/2018 [place] mL/min/{1. 7:20 AM [facility] 73_m2} HOSPITAL Comment: Non GFR Calc Starting 10/05/2018, serum creatinine ba sed estimated GFR (eGFR) will be calculated using the Chronic Kidney Dise [facility] Epidemiology Collaboration (CKD-EPI) equation. GFR Estimate If 51 (L) >60 mL/min/{1.73_m2} 11/05/2018 7: 20 AM [facility] [place] Comment: GFR Calc Starting 10/05/2018, serum creatinine ba sed estimated GFR (eGFR) will be calculated using the Chronic Kidney Dise [facility] Epidemiology Collaboration (CKD-EPI) equation. Specimen Anatomical Collection Method Collection Time Receive d Time (Source) Location / / Volume Laterality Blood specimen 11/05/2018 6:55 AM 019 6:56 (specimen) EXTRA HAND AM EXTRA HAND Juan Lewis MD LAB - BLOOD ORDERABLES Performing Organization Address City/State/ZIP Code Phon e Number [facility] [address] [address] [facility] [address] [place] [address], [place] [phone] XR Chest Port 1 View (11/05/2018 6:40 AM EXTRA HAND) Anatomical Region Laterality Modality Chest Digital Radiography Specimen (Source) Anatomical Location Collection Method / Collectio n Time Received Time / Laterality Volume Impressions 11/05/2018 6:58 AM EXTRA HAND IMPRESSION: No acute abnormality. TORI SANTIZO MD Narrative 11/05/2018 6:58 AM EXTRA HAND XR CHEST PORTABLE 1 VIEW ?? [...] CARDIAC - HIM SCAN (09/24/2018 12:00 AM EXTRA HAND) Specimen (Source) Anatomical Location Collection Method [...] acetaminophen (TYLENOL) tablet Given 11/08/2018 11:04 PM EXTRA HAND 975 mg 975 mg 975 mg, Oral, EVERY 6 HOURS PRN, mild pain, fever, Starting on Thu11/05/18 at 1827, Maximum acetaminophen dose from all sources = 75 mg/kg/day not to exceed 4 grams/day. Given 11/08/2018 12:37 PM EXTRA HAND 975 mg Given 11/07/2018 11:03 AM EXTRA HAND 975 mg alum & mag hydroxide-simethicone (MYLANTA Given 11/08/2018 2:48 AM EXTRA HAND 30 mLs ES/MAALOX ES) suspension 30 mL 30 mL, Oral, EVERY 4 HOURS PRN, indigestion, Starting on Thu11/05/18 at 1510, Shake well. apixaban ANTICOAGULANT (ELIQUIS) tablet 2.5 Given 10/20 12:04 PM EXTRA HAND 2.5 mg mg 2.5 mg, Oral, 2 TIMES DAILY, First dose on Thu11/09/18 at 1115 atorvastatin (LIPITOR) tablet 40 mg Given 11/08/2018 8:20 PM EXTRA HAND 40 mg 40 mg, Oral, EVERY EVENING, First dose on Thu11/05/18 at 2000 Given 11/07/2018 7:49 PM EXTRA HAND 40 mg Given 11/06/2018 9:16 PM EXTRA HAND 40 mg BUPivacaine (MARCAINE) Given 11/05/2018 12:07 PM 20 mLs Operative Site/Surgical injection 0.5% PF EXTRA HAND Site PRN, Starting on Thu11/05/18 at 1207, Intra-procedure calcium carbonate (TUMS) chewable tablet Given 11/07/2018 10 :34 PM EXTRA HAND 1,000 mg 1,000 mg 1,000 mg, Oral, EVERY 2 HOURS PRN, heartburn, Starting on Thu11/06/18 at 0408, Do not give if calcium level greater than 10 mg/dL. Given 11/07/2018 12:05 AM EXTRA HAND 1,000 mg Given 11/06/2018 4:50 AM EXTRA HAND 1,000 mg cyclobenzaprine (FLEXERIL) tablet 5-10 m g Given 11/08/2018 3:58 AM EXTRA HAND 10 mg 5-10 mg, Oral, 3 TIMES DAILY PRN, muscle spasms, Starting on Thu11/07/18 at 1153 Given 11/07/2018 2:26 PM EXTRA HAND 5 mg diphenhydrAMINE (BENADRYL) injection 12. 5 mg 12.5 mg, Intravenous, EVERY 6 HOURS PRN, itching, Only give if patient unable to take PO., Starting on Thu11/05/18 at 151 0, Caution to be used when administering multiple MOLDED GOODS CONTROLS OPERATOR depressing meds within a sh ort time frame. For ordered IV doses 1-50 mg, give IV Push undiluted. Give each 25 mg over a minimum of 1 minute. Extend in non-emergency diphenhydrAMINE (BENADRYL) solution 12.5 mg 12.5 mg, Oral, EVERY 6 HOURS PRN, itchin g, Starting on Thu11/05/18 at 1510, Caution to be used when administering multiple MOLDED GOODS CONTROLS OPERATOR depressing meds within a short time frame. heparin 10,000 units in Given 11/05/2018 11:06 AM 200 mLs Operative Site/Surgical 1000 mL 0.9% sodium EXTRA HAND Site chloride PRN, Starting on Thu11/05/18 at 1106, Intra-procedure hydrALAZINE (APRESOLINE) injection 10-20 mg Given 11/08/2018 7:03 PM EXTRA HAND 10 mg 10-20 mg, Intravenous, EVERY [...] over 1 minute. Given 11/08/2018 11:51 AM EXTRA HAND 20 mg Given 11/08/2018 3:36 AM EXTRA HAND 20 mg iopamidol (ISOVUE-300) IV Given 11/05/2018 12:42 PM 75 mLs Operative Site/Surgical solution 61% EXTRA HAND Site PRN, Starting on Thu11/05/18 at 1242, Intra-procedure labetalol (NORMODYNE/TRANDATE) injection 10-20 Given 0 11/08/2018 3:03 AM EXTRA HAND 10 mg mg 10-20 mg, Intravenous, [...] over 2 minutes. Given 11/08/2018 2:33 AM EXTRA HAND 20 mg Given 11/07/2018 10:35 PM EXTRA HAND 10 mg magnesium sulfate 4 g in 100 mL sterile water (premade) 4 g, Intravenous, Administer over 120 Minutes, EVERY 4 HOURS PRN, magnesium supplementation, Starting on 11/07/18 at 1152, For serum Mg++ less than 1.6 mg/dL Give 4 g and recheck magnesium level 2 hours aft er dose, and next AM. metoprolol tartrate (LOPRESSOR) tablet 5 0 mg Given 11/09/2018 8:28 AM EXTRA HAND 50 mg 50 mg, Oral, 2 TIMES DAILY, First dose on 11/08/18 at 2100, Hold for SBP < 90, HR < 50 Given 11/08/2018 8:20 PM EXTRA HAND 50 mg omeprazole (priLOSEC) CR capsule 20 mg Given 11/09/2018 6:33 AM EXTRA HAND 20 mg 20 mg, Oral, EVERY MORNING BEFORE BREAKFAST, First dose on Thu11/07/18 at 2345 Given 11/08/2018 8:22 AM EXTRA HAND 20 mg Given 11/07/2018 11:48 PM EXTRA HAND 20 mg ondansetron (ZOFRAN) injection 4 mg Given 11/07/2018 11:48 PM EXTRA HAND 4 mg 4 mg, Intravenous, EVERY [...] half-tab 2.5-5 mg Given 11/08/2018 12:37 PM EXTRA HAND 5 mg 2.5-5 mg, Oral, EVERY 4 HOURS PRN, moderate to severe pain, Starting on Thu11/05/18 at 1724 Given 11/08/2018 6:19 AM EXTRA HAND 5 mg Given 11/07/2018 7:49 PM EXTRA HAND 5 mg sennosides (SENOKOT) tablet 8.6 mg Given 11/08/2018 3:36 AM EXTRA HAND 8.6 mg 8.6 mg, Oral, 2 TIMES DAILY PRN, constipation, Starting on Thu11/08/18 at 0250 sodium chloride (PF) 0.9% PF flush 3 mL Given 11/07/2018 4:12 PM EXTRA HAND 3 mLs 3 mL, Intracatheter, EVERY 8 HOURS, First dose on Thu11/05/18 at 1515, And Q1H PRN, to lock peripheral IV dormant line. Given 11/07/2018 11:34 AM EXTRA HAND 3 mLs Given 11/07/2018 12:06 AM EXTRA HAND 10 mLs terazosin (HYTRIN) capsule 5 mg Given 11/08/2018 9:21 PM EXTRA HAND 5 mg 5 mg, Oral, AT BEDTIME, First dose on Thu11/05/18 at 2200 documented in this encounter Active and Recently Administered Medications Times are shown in EXTRA HAND. Scheduled Medication Order 11/07/2018 11/08/2018 11/09/2018 [...] at 75 mL/hr, Intravenous, CONTINUOUS, St arting [place] 11/07/18 at 1200, Until Thu11/09/18 at 0731 [...] Caution to be used when administering multiple MOLDED GOODS CONTROLS OPERATOR depressing meds within a short time frame. For ordered IV doses 1-50 m g, give IV Push undiluted. Give each 25mg over a minimum of 1 minute. Extend in non-emergency diphenhydrAMINE (BENADRYL) solution 12.5 mg(Linked Group 1) 12.5 mg, Oral, EVERY 6 HOURS PRN, itchin g, Starting Thu11/05/18 at 1510, Caution to be used when administering multiple MOLDED GOODS CONTROLS OPERATOR depressing meds within a short time [...] Castañeda, JOSE)0303 (Given - Provider: Kristy Castañeda, JSOE) 10-20 mg, Intravenous, EVERY 10 MIN PRN, high blood pressure, Administer over 1- 2 Minutes, Starting Thu11/05/18 at 1621, To achieve blood pressure of systolic < 160 mmHg Note for nurse: if both labet 2044 (Given - Provider: Kristy Castañeda, JOSE)2235 (Given - Provider: Krsity Castañeda, JOSE) alol (NORMODYNE,TRANDATE) and hydrALAZIN E [...] (ZOFRAN-ODT) ODT tab 4 mg(Linked Group 2) 1785 (See Alternative - Provider: Kristy Castañeda RN) [...]
Caution to be used when administering multiple MOLDED GOODS CONTROLS OPERATOR depressing meds within a short time frame.
Or diphenhydrAMINE (BENADRYL) injection 12.5 mgJump to med 12.5 mg, Intravenous, EVERY 6 HOURS PRN, itching, Only give if patient unable to take PO., Starting 1/18/19 at 1510
Caution to be used when administering multiple MOLDED GOODS CONTROLS OPERATOR depressing meds within a short time [...] documented as of this encounter Care Teams Airborne Sensor Specialist Relationship Specialty Start Date End Date [facility] PCP - General 05/12/[address] [place] [address] documented as of this encounter
--- OUTSIDE RECORDS SUMMARY | 2022-08-15 11:29 | XMS_ITS | Encounter Summary ---
:1940 Author Organization [place] Address [address] [place] [address] Care Team Providers Name Role Phone Clinic, [facility] Primary Care Provider [phone] Reason for Visit Auth/Cert Specialty Diagnoses / Procedures Referred By Contact Refer red To Contact Surgery Diagnoses ABDOMINAL AORTIC ANEURYSM Sh Periop Services Procedures ENDOVASCULAR REPAIR ANEURYSM ABDOMINAL AORTA [address] [place] [address] Phone: Referral ID Status Reason Start Date Expiration Date Visits Requ ested Visits Authorized [id number] 1 1 Encounter Details Date Type Department Care Team Description 09/28/2018 Anesthesia Event M [facility] Marylou Asher MD [facility] [address] [id number] [facility] Mattie Monahan, MILK HAULER LOCOMOTIVE ENGINEER DIESEL [address] [address] [address] [place] [...] Angela ts, Mattie Farrell, of Intubation: Easy; MILK HAULER LOCOMOTIVE ENGINEER DIESEL MILK HAULER LOCOMOTIVE ENGINEER DIESEL Airway Size: 8; Cuffed; Oral; Blade Type: Glidescope; Blade Size: 4; Place by: EA LOCOMOTIVE ENGINEER DIESEL; Insertion Attempts: 1; Secured at (cm)to lip: 23 cm; Breath Sounds: Equal, clear and bilateral; Dentition: Intact, Unchanged; Grade View of Cords: 1; Airway Adjuncts: [place] scope Urethral Catheter 09/28/18; 1315; No; 09/28/18 [...] Asher MD September 28, 2018 3:11 PM STERED PHARMACY TECHNICIAN Anesthesia Procedure Notes - Ling Asher MD - 09/28/2018 3:10 PM REGISTERED PHARMACY TECHNICIAN Associated Order(s): A Line Catheter Placement ARTERIAL [...] Yes IBP within 10% of NIBP: Yes STERED PHARMACY TECHNICIAN Anesthesia Preprocedure Evaluation - Ling Asher MD [...] alternatives discussed with: Patient.. Ling Asher MD STERED PHARMACY TECHNICIAN documented in this encounter Miscellaneous Notes Anesthesia [...] (Last set prior to Anesthesia Care Transfer) LOCOMOTIVE ENGINEER DIESEL VITALS 09/28/2018 1428 - 09/28/2018 1506 09/28/2018 Resp Rate (set): 10 Electronically Signed By: Mattie Marmolejo APRN CRNA September 28, 2018 3:06 PM STERED PHARMACY TECHNICIAN documented in this encounter Plan of Treatment Not on filedocumented as of this encounter Procedures Procedure Name Priority Date/Time Associated Diagnosis Comme nts ANE A LINE CATHETER Routine 09/28/2018 3:10 PM REGISTERED PHARMACY TECHNICIAN PLACEMENT Procedure Note - Ritu Asher MD [...] (CLEOCIN) infusion 900 Given 09/28/2018 1:18 PM REGISTERED PHARMACY TECHNICIAN 900 mg mg Routine, 900 mg, Intravenous, PRE-OP/PRE-PROCEDURE, Starting on Thu09/28/18 at 1101, For 1 dose, Give first dose within 1 hour PRIOR to incision., Indications: Perioperative Pharmacoprophylaxis, Pre-procedure dexmedetomidine (PRECEDEX) 4 mcg/mL bolu s Bolus 09/28/2018 2:19 PM REGISTERED PHARMACY TECHNICIAN 8 mcg CONTINUOUS PRN, Starting on Thu09/28/18 at 1216, Anesthesia Intra-op Bolus 09/28/2018 1:12 PM REGISTERED PHARMACY TECHNICIAN 12 mcg Bolus 09/28/2018 1:02 PM REGISTERED PHARMACY TECHNICIAN 8 mcg ePHEDrine injection Given 09/28/2018 1:57 PM REGISTERED PHARMACY TECHNICIAN 5 mg PRN, Starting on Thu09/28/18 at 1345, Anesthesia Intra-op Given 09/28/2018 1:49 PM REGISTERED PHARMACY TECHNICIAN 5 mg Given 09/28/2018 1:45 PM REGISTERED PHARMACY TECHNICIAN 5 mg fentaNYL (PF) (SUBLIMAZE) injection Given 09/28/2018 1:34 PM REGISTERED PHARMACY TECHNICIAN 50 mcg PRN, Administer over 3-5 Minutes, Starting on Thu09/28/18 at 1302, Anesthesia Intra-op Given 09/28/2018 1:02 PM REGISTERED PHARMACY TECHNICIAN 50 mcg lactated ringers infusion New Bag 09/28/2018 1:11 PM REGISTERED PHARMACY TECHNICIAN CONTINUOUS PRN, Anesthesia Intra-op, Starting on Thu09/28/18 at 1311, Until Thu09/28/18 at 1506 lidocaine 2% injection (MDV) Given 09/28/2018 1:02 PM REGISTERED PHARMACY TECHNICIAN 100 mg PRN, Starting on Thu09/28/18 at 1302, Anesthesia Intra-op phenylephrine 0.2 mg/mL Rate/Dose Change 09/28/2018 2:17 0.1 mcg/kg /min 2.54 mL/hr (mcg/kg/min) drip PM REGISTERED PHARMACY TECHNICIAN CONTINUOUS PRN, Starting on Thu09/28/18 at 1406, Anesthesia Intra-op Rate/Dose Change 09/28/2018 2:12 PM REGISTERED PHARMACY TECHNICIAN 0.15 mcg/kg/min 3.82 mL/hr New Bag 09/28/2018 2:06 PM REGISTERED PHARMACY TECHNICIAN 0.25 mcg/kg/min 6.36 mL/hr propofol (DIPRIVAN) infusion New Bag 09/28/2018 1:11 PM 35 mcg/kg/min 17.8 mL/hr Intravenous, CONTINUOUS PRN, REGISTERED PHARMACY TECHNICIAN Starting on Thu09/28/18 at 1311, Anesthesia Intra-op propofol (DIPRIVAN) injection 10 mg/mL v ial Given 09/28/2018 1:02 PM REGISTERED PHARMACY TECHNICIAN 200 mg PRN, Starting on Thu09/28/18 at 1302, Anesthesia Intra-op rocuronium (ZEMURON) injection Given 09/28/2018 1:02 PM REGISTERED PHARMACY TECHNICIAN 50 mg PRN, Starting on Thu09/28/18 at 1302, Anesthesia Intra-op vecuronium (NORCURON) injection Given 09/28/2018 2:17 PM REGISTERED PHARMACY TECHNICIAN 2 mg PRN, Starting on Thu09/28/18 at 1334, Anesthesia Intra-op Given 09/28/2018 1:34 PM REGISTERED PHARMACY TECHNICIAN 2 mg documented in this encounter Care Teams Marketing Analytics Lead Relationship Specialty Start Date End Date [facility], [facility] - General 05/12/17 [address] [place] [address] documented as of this encounter
--- OUTSIDE RECORDS SUMMARY | 2022-08-15 11:29 | XMS_ITS | Encounter Summary ---
:1940 Author Organization [place] Address [address] [place] [address] Care Team Providers Name Role Phone Clinic, [facility] Primary Care Provider [phone] Reason for Visit Reason Onset Date Comments Clinic Care Coordination - Follow-up 10/01/2018 Encounter Details Date Type Department Care Team Description 10/01/2018 Telephone [facility] Juan Lewis [facility] C are Coordination Vascular Clinic Félix Nava MD - Follow-up [address] [place] [address] [place] [address] Social History Tobacco Use Types Packs/Day Years [...] schedule an OV and he will call [facility] on to discuss surgical plan after he has spoken with IR and the Anesthesia dept. Attempted to reach louise García with update and provided direct number for any further questions. SHASTA Winkler, RN INE OPERATOR HELPER Telephone Encounter - Sondra Johnson RN - [...] appointment with Dr. Lewis. SHASTA Winkler, RN INE OPERATOR HELPER Telephone Encounter - Sondra Johnson RN - 10/01/2018 1:[address] Lewis's request, contact pt's daughter Raquel with an update on care plan. Raquel updated that Dr. Lewis will contact her on Thursday with a new plan for her dad. Raquel was in agreement with this plan. SHASTA Winkler, RN INE OPERATOR HELPER documented in this encounter Plan of Treatment Not on filedocumented as of this encounter Visit Diagnoses Not on filedocumented in this encounter Care Teams Dyer And Washer Relationship Specialty Start Date End Date [facility] PCP - General 05/12/[address] [place] [id number] documented as of this encounter
--- OUTSIDE RECORDS SUMMARY | 2022-08-15 11:29 | XMS_ITS | Encounter Summary ---
:1940 Author Organization [place] Address [address] [place] [address] Care Team Providers Name Role Phone [facility] Primary Care Provider [phone] Encounter Details Date Type Department Care Team Description 07/30/2018 Telephone [facility] Vascular Juan Delcid MD [facility] [place] [address] [place] [address] [place] [address] [phone] Social History Tobacco Use Types Packs/Day Years [...] AAA WITH [employer] GRAFT Location of surgery: [facility] Date and time of surgery: 09/28/18 @ 12:30pm Surgeon: DR. VÁSQUEZ AND DR. ALANIZ Pre-Op Appt Date: PT TO SCHEDULE AT [facility] Post-Op Appt Date: PT TO SCHEDULE Packet sent out: YES ON 09/02/18 Pre-cert/Authorization completed: Yes Date: 09/14/18 TIC SCIENTIST Telephone Encounter - Aruna Simmons - 07/30/2018 4:00 PM CDT Daughter Raquel called to schedule her dad's surgery in September. I took note of the dates they would like. I am waiting on the schedule for the Interventional Radiologist that Dr. Vásquez requested. Raquel understands I will follow up with her next week. .Aruna Simmons, Record Tabulating Clerk documented in this encounter Plan of Treatment Not on filedocumented as of this encounter Visit Diagnoses Not on filedocumented in this encounter Care Teams Moth Exterminator Relationship Specialty Start Date End Date [facility] PCP - General 05/12/[address] [place] [id number] documented as of this encounter
--- OUTSIDE RECORDS SUMMARY | 2022-08-15 11:29 | XMS_ITS | Encounter Summary ---
:1940 Author Organization Jay Address [address] [place] [address] Care Team Providers Name Role Phone [facility], [facility] Primary Care Provider [phone] Reason for Visit Auth/Cert Specialty Diagnoses / Procedures Referred By Contact Refer red To Contact Surgery Diagnoses ABDOMINAL AORTIC ANEURYSM Sh Periop Services Procedures ENDOVASCULAR REPAIR ANEURYSM ABDOMINAL AORTA [address] [place] [address] Phone: Referral ID Status Reason Start Date Expiration Date Visits Requ ested Visits Authorized [id number] 1 1 Encounter Details Date Type Department Care Team Description 09/28/2018 Surgery [facility] Juan Vásquez FEMORAL [place] PeriOP MD Elijah CUTDOWN WITH ANGIOGRAM Services [address] [place] [address] [place] [address] [phone] Surgery Details Date/Time Status Location OR Service [...] Comments Blood Pressure 146/79 09/28/2018 3:00 PM HIDE HANDLER Pulse 60 09/28/2018 11:21 AM HIDE HANDLER Temperature 36.5 ??C (97.7 ??F) 09/28/2018 3:00 PM HIDE HANDLER Respiratory Rate 9 09/28/2018 3:50 PM HIDE HANDLER Oxygen Saturation 94% 09/28/2018 3:50 PM HIDE HANDLER Inhaled Oxygen Concentration - - Weight 84.8 kg (187 lb) 09/28/2018 11:21 AM HIDE HANDLER Height 170.2 cm (5' 7) 09/28/2018 11:21 AM HIDE HANDLER Body Mass Index 29.41 09/28/2018 11:21 AM HIDE HANDLER documented in this encounter Discharge Summaries Juan [...] MD MT: RIO Name: SPEEDY MCDUFFIE Account: [id number] : 1940 Admit Date: 09/28/2018 Discharge Date: 09/29/2018 Document: [id number] cc: Primary HANDLER documented in this encounter Medications at Time [...] Levi MD - 09/29/2018 9:32 AM CST [facility] Vascular Medicine Progress Note Date [...] aorta. Exchange was made for a 6 Palestinian vascular sheath. 18-gauge singlewall needle was then advanced into the left common femoral artery through which a 0.035 inch Bentson wire was advanced in the abdominal aorta. Exchange is made for a 6 Palestinian vascular sheath. Via the left groin access, a 5 Palestinian pigtail catheter was advanced over the Bentson wire into the abdominal aorta. Via the right groin, a 5 Palestinian pigtail catheter was advanced over the Bentson [...] concerns during business hours M-F, call the [facility] at [phone] to have the rounding/senior occupational therapist Vascular Medicine (NOT VASCULAR SURGERY) MD paged. - After business hours M-F,??for medical concerns on this patient, please page hospitalist staff. - For vascular surgical questions, please page the appropriate surgeon (primary vascular surgeon or senior occupational therapist vascular surgeon) based upon the time of day. Lambert Fontanez PA-C Zoltan Londono MD - 09/29/2018 8:19 AM CST [facility] Vascular Surgery Progress Note Assessment [...] during business hours M-F, call the [facility] at [phone] to have the rounding/senior occupational therapist Vascular Medicine (NOT VASCULAR SURGERY) MD paged. - After business hours M-F,??for medical concerns on this patient, please page hospitalist staff. - For vascular surgical questions, please page the appropriate surgeon (primary vascular surgeon or senior occupational therapist vascular surgeon) based upon the time of day. Brandie Barrera PA-C Michelle Jones - 09/28/2018 10:42 AM CST Admission medication history interview status for the 09/28/2018 admission is complete. See [facility] admission navigator for prior to admission medications Medication history source reliability:Good Medication history interview source(s):Patient Medication history resources (including written lists, pill bottles, clinic record):Patient mailed in his medication list prior to surgery Primary pharmacy.[facility] Additional medication history information not noted on [employer] med list :None Time spent in this [...] at HS Yes Unknown, Entered By History HANDLER documented in this encounter Procedure Notes Jacqui [...] for procedural details. Provider name: Jacqui Odom Edge Inker Uppers(s):None HANDLER documented in this encounter Consult Notes Carrie [...] Cervical fusion, Dr. Donahue at [facility] 02/18/2006. 3. Hardware removal and matrixectomy, right great toe, 09/30/2012. 4. Lumbar fusion 10/1996, L5-S1. 5. Lumbar fusion 1999, L4. 6. 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 7. Laparoscopic appendectomy, 01/2009. SOCIAL HISTORY: The patient is . He has 2 children. 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 He quit smoking [id number] after a 1/4 pack per day use [...] MD MT: JACKSON Name: SPEEDY MCDUFFIE Account: [id number] : 1940 Consult Date: 09/28/2018 Document: [id number] HANDLER documented in this encounter Miscellaneous Notes Op [...] MD MT: JACKSON Name: SPEEDY MCDUFFIE Account: [id number] : 1940 Procedure Date: 09/28/2018 Document: [id number] HANDLER Plan of Care - Griselda Dinero RN [...] will continue to follow up with this. HANDLER Provider Notification - Levi Hollingsworth MD - 09/29/2018 12:46 AM HIDE HANDLER Brief update: Paged re: request for home melatonin 10 mg melatonin HS PRN added. Levi Hollingsworth MD 12:47 AM HANDLER Plan of Care - Ira South RN - 09/28/2018 11:11 PM CST A&O, VSS, Lung sounds clear, Bowel sounds active,adeqaute urine output, incision right & letgroin CDI Ambulates assist 1, Regular diet, tolerating liquids with poor appetite. Pain controlled by scheduled tylenol and PRN oxycodone. HANDLER Plan of Care - Vandana Smith RN - 09/28/2018 7:22 PM CST Pt is came from PACU.Groin site dressing clean dry and intact.Not void yet.Ice pack given.IVF running .will monitor. HANDLER documented in this encounter Plan of Treatment Not on filedocumented as of this encounter Procedures Procedure Name Priority Date/Time Associated Comments Diagnosis CTA CHEST WITH Routine 09/29/2018 11:38 Results f or this CONTRAST AM HIDE HANDLER procedure are i n the results section. BASIC METABOLIC PANEL Timed 09/29/2018 10:06 AAA (abdominal Results for this AM HIDE HANDLER aortic aneurysm) procedure a re in (H) the results section. GLUCOSE BY METER Routine 09/29/2018 6:00 AM AAA (abdominal Res ults for this HIDE HANDLER aortic aneurysm) procedure a re in (H) the results section. ANGIOGRAM Routine 09/28/2018 2:39 PM HIDE HANDLER IR ABDOMINAL Routine 09/28/2018 2:17 PM AAA (abdominal Results for this ENDOVASCULAR STENT HIDE HANDLER aortic aneurysm) proce dure are in GRAFT (H) the results section. EKG 12-LEAD, TRACING STAT 09/28/2018 11:42 Res ults for this ONLY AM HIDE HANDLER procedure are i n the results section. XR CHEST 1 VIEW STAT 09/28/2018 11:21 Results for this AM HIDE HANDLER procedure are i n the results section. BLOOD COMPONENT Routine 09/28/2018 11:11 AAA (abdominal Result s for this AM HIDE HANDLER aortic aneurysm) procedure a re in (H) the results section. BLOOD COMPONENT Routine 09/28/2018 11:11 AAA (abdominal Result s for this AM HIDE HANDLER aortic aneurysm) procedure a re in (H) the results section. POTASSIUM STAT 09/28/2018 11:11 AAA (abdominal Results f or this AM HIDE HANDLER aortic aneurysm) procedure a re in (H) the results section. LIPID PROFILE STAT 09/28/2018 11:11 AAA (abdominal Results for this AM HIDE HANDLER aortic aneurysm) procedure a re in (H) the results section. HEMOGLOBIN A1C STAT 09/28/2018 11:11 AAA (abdominal Results for this AM HIDE HANDLER aortic aneurysm) procedure a re in (H) the results section. CREATININE STAT 09/28/2018 11:11 AAA (abdominal Results f or this AM HIDE HANDLER aortic aneurysm) procedure a re in (H) the results section. ABO/RH TYPE AND STAT 09/28/2018 11:11 AAA (abdominal Result s for this SCREEN AM HIDE HANDLER aortic aneurysm) procedure a re in (H) the results section. LAB RESULT - HIM SCAN 09/24/2018 12:00 AM HIDE HANDLER EKG CARDIAC - HIM 09/24/2018 12:00 SCAN AM HIDE HANDLER documented in this encounter Results CTA Chest with Contrast (09/29/2018 11:38 AM HIDE HANDLER) Anatomical Region Laterality Modality Chest, SUBRAD IR PROCEDURE, UMP CT CTA, RAD CT Computed Tomography Specimen (Source) Anatomical Location Collection Method / Collectio n Time Received Time / Laterality Volume Impressions 09/29/2018 4:30 PM HIDE HANDLER IMPRESSION: Tortuous descending thoracic aorta with bilobed aneurysmal dilatation measuring up to 50 mm in diameter in the distal descending aorta. JACQUI ODOM MD Narrative 09/29/2018 4:30 PM HIDE HANDLER PROCEDURE: CTA of the chest DATE OF [...] ORDERABLES Basic metabolic panel (09/29/2018 10:06 AM HIDE HANDLER) [facility] Time Signature Sodium 141 133 - 144 09/29/2018 [facility] mmol/L 10:31 AM [facility] Potassium 4.5 3.4 - 5.3 09/29/2018 [facility] mmol/L 10:31 AM [facility] Chloride 109 94 - 109 09/29/2018 [facility] mmol/L 10:31 AM [facility] Carbon Dioxide 25 20 - 32 09/29/2018 [facility] mmol/L 10:31 AM [facility] Anion Gap 7 3 - 14 09/29/2018 [place] mmol/L 10:31 AM [facility] Glucose 97 70 - 99 09/29/2018 [place] mg/dL 10:31 AM [facility] Urea Nitrogen 18 7 - 30 09/29/2018 [place] mg/dL 10:31 AM [facility] Creatinine 1.25 0.66 - 09/29/2018 [place] 1.25 10:31 AM [facility] GFR Estimate Not Calculated >60 09/29/2018 [place] mL/min/1. 10:[address] GFR Estimate Not Calculated >60 09/29/2018 [place] If Black mL/min/1. 10:[address] Calcium 8.8 8.5 - 09/29/2018 [place] 10.1 10:31 AM [facility] mg/dL HOSPITAL Specimen Anatomical Collection Method Collection Time Receive d Time (Source) Location / / Volume Laterality Blood specimen 09/29/2018 10:06 8 (specimen) AM HIDE HANDLER 10:07 AM HIDE HANDLER Pam Conde PA-C LAB - BLOOD ORDERABLES Performing Organization Address City/State/ZIP Code Phon e Number [facility] [address] [place] [address] [facility] [address] [place] [address], [facility] [phone] (ABNORMAL) Glucose by meter (09/29/2018 6:00 AM HIDE HANDLER) P athologist Signature Glucose 109 (H) 70 - 99 09/29/2018 [facility] mg/dL 6:18 AM HIDE HANDLER TEST, GLUCOSE Specimen Anatomical Collection Method Collection Time Receive d Time (Source) Location / / Volume Laterality 09/29/2018 6:00 AM 8 6:18 HIDE HANDLER AM HIDE HANDLER Juan Vásquez MD LAB - BEAKER POCT Performing Organization Address City/State/ZIP Code Phon e Number [facility] POINT OF CARE TEST, GLUCOSE POINT OF CARE TEST, GLUCOSE IR Abdominal Endovascular Stent Graft (09/28/2018 2:17 PM HIDE HANDLER) Anatomical Region Laterality Modality Abdomen/Pelvis Radio Fluoroscopy Specimen (Source) Anatomical Location Collection Method / Collectio n Time Received Time / Laterality Volume Impressions 09/29/2018 8:52 AM HIDE HANDLER Impression: 1. Thoracic and abdominal angiography de monstrating previously unknown thoracic aortic aneurysm as well as the known abdominal aortic aneurysm 2. Endovascular aneurysm repair was abor clover to allow for further investigation of the thoracic aortic ane urysm and future surgical planning. JACQUI ODOM MD Narrative 09/29/2018 8:52 AM HIDE HANDLER PROCEDURE(S): 1. Thoracic and abdominal aortic angiogr [...] aneurysm repair. A timeout was performed per [facility] protocol policy to confirm the correct [...] aorta. Exchange was made for a 6 Palestinian vascula r sheath. 18-gauge singlewall needle was then advanced into the left c ommon femoral artery through which a 0.035 inch Bentson wire was adva nced in the abdominal aorta. Exchange is made for a 6 Palestinian vascular sheath. Via the left groin access, a 5 Palestinian pigtail catheter was advanced over the Bentson wire into the abdominal aorta. Via the right groin, a 5 Palestinian pigtail catheter was advanced over the Bentson [...] aneurysm repair. A timeout was performed per [facility] protocol policy to confirm the correct patient, site and pr ocedure to be performed. Please note that due to the complex natu re of the procedure, a multi-disciplinary approach was used [facility] involved Mili Vásquez and Lei functioning as co-surgeons for t his procedure. Bilateral common femoral arteries were s urgically exposed, see separate operative report for details. A n 18-gauge singlewall needle was then inserted into the right common femoral artery through which a 0.035 inch Bentson wire was advanced int o the abdominal aorta. Exchange was made for a 6 Palestinian vascula r sheath. 18-gauge singlewall needle was then advanced into the left c ommon femoral artery through which a 0.035 inch Bentson wire was adva nced in the abdominal aorta. Exchange is made for a 6 Palestinian vascular sheath. Via the left groin access, a 5 Palestinian pigtail catheter was advanced over the Bentson wire into the abdominal aorta. Via the right groin, a 5 Palestinian pigtail catheter was advanced over the Bentson [...] EKG 12-lead, tracing only (09/28/2018 11:42 AM HIDE HANDLER) [facility] Method Time Signature Interpretation ECG Click View RADIOLOGY Image link RESULTS to view waveform and result Specimen (Source) Anatomical Collection Method Collection Time Re ceived Time Location / / Volume Laterality 09/28/2018 11:42 AM HIDE HANDLER Juan Vásquez MD ECG ORDERABLES Performing Organization Address City/State/ZIP Code Phon e Number RADIOLOGY RESULTS XR Chest 1 View (09/28/2018 11:21 AM HIDE HANDLER) Anatomical Region Laterality Modality Chest Digital Radiography Specimen (Source) Anatomical Location Collection Method / Collectio n Time Received Time / Laterality Volume Impressions 09/28/2018 1:09 PM HIDE HANDLER IMPRESSION: Heart size similar to prior. The thoracic aorta is elongated. No airspace consolidation or pneumothorax. There appears to be a small right pleural effusion. ELAINA HUNTLEY MD Narrative 09/28/2018 1:09 PM HIDE HANDLER CHEST ONE VIEW ??09/28/2018 11:21 AM HISTORY: [...] ORDER BRAYDEN Blood component (09/28/2018 11:11 AM HIDE HANDLER) [facility] Method Time Signature Unit Number [id number] 09/28/2018 [facility] 1:21 PM [facility] Blood Red Blood 09/28/2018 [facility] Component Cells 1:21 PM [facility] Leukocyte HOSPITAL Reduced Division 00 09/28/2018 [facility] Number 1:21 PM [facility] Status of No longer 10/02/2018 [facility] Unit available 3:00 AM [facility] 10/02/2018 HOSPITAL 0300 Blood Product [id number] 09/28/2018 [facility] Code 1:21 PM [facility] Unit Status [facility] Specimen Anatomical Collection Method Collection Time Receive d Time (Source) Location / / Volume Laterality 09/28/2018 11:11 09/28/2018 AM HIDE HANDLER 11:44 AM HIDE HANDLER Juan Vásquez MD LABORATORY Performing Organization Address City/State/ZIP Code Phon e Number M [facility] [address] [place], [place] [address] [facility] [address] [place] [address], [facility] [phone] [facility] [address] [place] [address], [facility] [phone] Blood component (09/28/2018 11:11 AM HIDE HANDLER) Patholo gist Method Time Signature Unit Number [id number] 09/28/2018 [facility] 1:21 PM HIDE HANDLER [facility] Blood Red Blood 09/28/2018 [facility] Component Cells 1:21 PM HIDE HANDLER [facility] Reduced Division 00 09/28/2018 [facility] Number 1:21 PM [facility] Status of No longer 10/02/2018 [facility] Unit available 3:00 AM [facility] 10/02/2018 HOSPITAL 0300 Blood Product [id number] 09/28/2018 [facility] Code 1:21 PM [facility] Unit Status [facility] Specimen Anatomical Collection Method Collection Time Receive d Time (Source) Location / / Volume Laterality 09/28/2018 11:11 09/28/2018 AM HIDE HANDLER 11:44 AM HIDE HANDLER Juan Vásquez MD LABORATORY Performing Organization Address City/State/ZIP Code Phon e Number [facility] [address] [place], [place] [address] [facility] [address] [place] [address], [facility] [phone] [facility] [address] [place], [place] [address], [facility] [phone] Potassium (09/28/2018 11:11 AM HIDE HANDLER) P athologist Signature Potassium 4.0 3.4 - 5.3 09/28/2018 [place] mmol/L 12:22 PM HIDE HANDLER [facility] Specimen Anatomical Collection Method Collection Time Receive d Time (Source) Location / / Volume Laterality Blood specimen 09/28/2018 11:11 8 (specimen) AM HIDE HANDLER 11:43 AM HIDE HANDLER Ramiro Card MD LAB - BLOOD ORDERABLES Performing Organization Address City/State/ZIP Code Phon e Number [facility] [address] [place] [address] [phone] [facility] [address] [place] [address], [place] [phone] Lipid panel (09/28/2018 11:11 AM HIDE HANDLER) Analysis Performed At [facility] logist Time Signature Cholesterol 143 <200 mg/dL 09/28/2018 [facility] 12:22 PM [facility] Triglycerides 115 <150 mg/dL 09/28/2018 [facility] 12:24 PM [facility] HDL Cholesterol 68 >39 mg/dL 09/28/2018 [facility] 12:24 PM [facility] LDL Cholesterol 52 <100 mg/dL 09/28/2018 [facility] Calculated 12:24 PM [facility] Comment: Desirable: <100 mg/dl Non HDL Cholesterol 75 <130 mg/dL 09/28/2018 12:24 PM [facility] Specimen Anatomical Collection Method Collection Time Receive d Time (Source) Location / / Volume Laterality Blood specimen 09/28/2018 11:11 8 (specimen) AM HIDE HANDLER 11:43 AM HIDE HANDLER Juan Vásquez MD LAB - BLOOD ORDERABLES Performing Organization Address City/State/ZIP Code Phon e Number [facility] [address] [place] [address] [phone] [facility] [address] [place] [address], [place] [phone] (ABNORMAL) ABO/Rh type and screen (09/28/2018 11:11 AM HIDE HANDLER) Component Value Ref Test Analysis Performed At [facility] gist Range Method Time Signature Units Ordered 2 09/28/2018 [facility] 11:54 AM [facility] ABO O 09/28/2018 [facility] 12:28 PM [facility] RH(D) Pos [facility] Antibody Screen Pos (A) 09/28/2018 [facility] 12:28 PM [facility] Test Valid Only Jay 09/28/[address] [facility] [address] [facility] 11:47 AM [facility] HOSPITAL Specimen Expires 10/01/2018 09/28/2018 [facility] 11:47 AM [facility] Crossmatch Red Blood Cells 09/28/2018 [facility] 11:54 AM [facility] Blood Bank Delay in availability of Red Blood Cells called to 09/28/2018 [facility] Comment Esme in Preop at 1228 re 12:37 PM [facility] Antibody ANTI-Rosa 09/28/2018 [facility] Identification 1:26 PM [facility] Antigen Type Latimer Negative 09/28/2018 [facility] 1:26 PM [facility] Specimen Anatomical Collection Method Collection Time Receive d Time (Source) Location / / Volume Laterality Blood specimen 09/28/2018 11:11 8 (specimen) AM HIDE HANDLER 11:44 AM HIDE HANDLER Juan Vásquez MD LAB - BLOOD BANK TEST ORDER Performing Organization Address City/State/ZIP Code Phon e Number [facility] [address] [address] [facility] [address] [place] [address], [place] [phone] (ABNORMAL) Hemoglobin A1c (09/28/2018 11:11 AM HIDE HANDLER) P athologist Signature Hemoglobin A1C 5.7 (H) 0 - 5.6 % 09/28/2018 [facility] 12:08 PM [facility] Comment: Normal <5.7% Prediabetes 5.7-6.4% ??Diab etes 6.5% or higher - adopted from ADA consensus guidelines. Specimen Anatomical Collection Method Collection Time Receive d Time (Source) Location / / Volume Laterality Blood specimen 09/28/2018 11:11 8 (specimen) AM HIDE HANDLER 11:43 AM HIDE HANDLER Juan Vásquez MD LAB - BLOOD ORDERABLES Performing Organization Address City/State/ZIP Code Phon e Number [facility] [address] [place] [address] [facility] [address] [place] [address], [place] [phone] (ABNORMAL) Creatinine (09/28/2018 11:11 AM HIDE HANDLER) P athologist Signature Creatinine 1.46 (H) 0.66 - 09/28/2018 [place] 1.25 mg/dL 12:22 PM [facility] GFR Estimate 47 (L) >60 09/28/2018 [place] mL/min/1.7 12:[address] Comment: Non GFR Calc GFR Estimate If 57 (L) >60 mL/min/1.7m2 09/28/2018 12:22 PM [facility] Comment: GFR Calc Specimen Anatomical Collection Method Collection Time Receive d Time (Source) Location / / Volume Laterality Blood specimen 09/28/2018 11:11 8 (specimen) AM HIDE HANDLER 11:43 AM HIDE HANDLER Juan Vásquez MD LAB - BLOOD ORDERABLES Performing Organization Address City/State/ZIP Code Phon e Number [facility] [address] [address] [facility] [address] [address], [place] [phone] LAB RESULT - HIM SCAN (09/24/2018 12:00 AM HIDE HANDLER) Specimen (Source) Anatomical Location Collection Method / Collectio n Time Received Time / Laterality Volume 09/24/2018 Narrative This result has an attachment that is no t available. Provider Outside NON-BEAKER LAB TESTING EKG CARDIAC - HIM SCAN (09/24/2018 12:00 AM HIDE HANDLER) Specimen (Source) Anatomical Location Collection Method / [...] (TYLENOL) tablet 975 Given 09/29/2018 5:41 AM HIDE HANDLER 975 mg mg 975 mg, Oral, EVERY 8 HOURS, First dose on Thu09/28/18 at 2200, For 3 days, Do not use if patient has an active opioid/acetaminophen combined analgesic product ordered for pain. Maximum acetaminophen dose from all sources = 75 mg/kg/day not to exceed 4 grams/day., Post-procedure Given 09/28/2018 9:50 PM HIDE HANDLER 975 mg atorvastatin (LIPITOR) tablet 40 mg Given 09/28/2018 9:50 PM HIDE HANDLER 40 mg 40 mg, Oral, EVERY EVENING, First dose on Thu09/28/18 at 2000 heparin 10,000 units in 1000 mL 0.9% Given 09/28/2018 1:37 PM CS T 1,000 mLs sodium chloride PRN, Starting on Thu09/28/18 at 1335, Intra-procedure Given 09/28/2018 1:36 PM HIDE HANDLER 1,000 mLs Given 09/28/2018 1:35 PM HIDE HANDLER 1,000 mLs lactated ringers infusion New Bag 09/29/2018 2:48 AM HIDE HANDLER 125 mL/hr at 125 mL/hr, Intravenous, CONTINUOUS, NOT for patient on renal dialysis. Saline lock after 1 liter if taking PO fluids., Post-procedure, Starting on Thu09/28/18 at 1800, Until Thu09/29/18 at 1753 Rate/Dose Verify 09/29/2018 12:39 AM HIDE HANDLER 125 mL/hr New Bag 09/28/2018 6:31 PM HIDE HANDLER 125 mL/hr lisinopril (PRINIVIL/ZESTRIL) tablet 5 m g Given 09/29/2018 8:21 AM HIDE HANDLER 5 mg 5 mg, Oral, 2 TIMES DAILY, First dose on Thu09/28/18 at 2100 Given 09/28/2018 9:52 PM HIDE HANDLER 5 mg melatonin tablet 10 mg Given 09/29/2018 2:48 AM HIDE HANDLER 10 mg 10 mg, Oral, AT BEDTIME PRN, sleep, Starting on Thu09/29/18 at 0044 metoprolol tartrate (LOPRESSOR) tablet 5 0 mg Given 09/29/2018 8:21 AM HIDE HANDLER 50 mg 50 mg, Oral, 2 TIMES DAILY, First dose on Thu09/28/18 at 2100 Given 09/28/2018 9:50 PM HIDE HANDLER 50 mg oxyCODONE (ROXICODONE) tablet 5 mg Given 09/28/2018 10:49 PM HIDE HANDLER 5 mg 5 mg, Oral, EVERY 3 HOURS PRN, other, pain control or improvement in physical function. Hold dose for analgesic side effects., Starting on Thu09/28/18 at 1751, Notify provider to assess for uncontrolled pain or analgesic side effects. Hold while on DRAFTER PLUMBING or with regular IV opioid dosing. Maximum total is 40 mg in 24 hours., Post-procedure sodium chloride (PF) 0.9% PF flush 3 mL Given 09/28/2018 9:58 PM HIDE HANDLER 3 mLs 3 mL, Intracatheter, EVERY 8 HOURS, First dose on Thu09/28/18 at 2200, And Q1H PRN, to lock peripheral IV dormant line., Post-procedure terazosin (HYTRIN) capsule 5 mg Given 09/28/2018 10:49 PM HIDE HANDLER 5 mg 5 mg, Oral, AT BEDTIME, First dose on Thu09/28/18 at 2200 documented in this encounter Active and Recently Administered Medications Times are shown in HIDE HANDLER. Scheduled Medication Order 09/27/2018 09/28/2018 09/29/2018 acetaminophen [...] Volume Adjustment - Provider: Mattie Marmolejo APRN PATIENT PLACEMENT COORDINATOR)1432 (Anesthesia Volume Adjustment - Provider: Mattie Marmolejo APRN PATIENT PLACEMENT COORDINATOR) at 25 mL/hr, Intravenous, CONTINUOUS, IF [...] analgesic side effects. Hold whil e on DRAFTER PLUMBING or with regular IV opioid dosing. Maximum total is 40 mg in 24 hours., Post-procedure sodium chloride (PF) 0.9% PF flush 3 mL 3 mL, Intracatheter, EVERY 1 HOUR PRN, l ine flush, for peripheral IV flush post IV meds, Starting Thu09/28/18 at 1751, Post-procedure documented in this encounter Care Teams Weigh Box Tender Relationship Specialty Start Date End Date Clinic, [facility] PCP - General 05/12/17 [address] [place] [address] documented as of this encounter
--- OUTSIDE RECORDS SUMMARY | 2022-08-15 11:29 | XMS_ITS | Encounter Summary ---
:1940 Author Organization [place] Address [facility] 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) [address] [place] [address] [place], [place] [phone] [address] (Work) [phone] Social History Tobacco Use Types Packs/Day Years [...] Primary documented in this encounter Care Teams Roping Tender Relationship Specialty Start Date End Date [facility], [facility] PCP - General 05/12/[address] [place] [address] documented as of this encounter
--- OUTSIDE RECORDS SUMMARY | 2022-08-15 11:30 | XMS_ITS | Encounter Summary ---
:1940 Author Organization [place] Address [address] [place] [address] Care Team Providers Name Role Phone Clinic, [facility] Primary Care Provider [phone] Reason for Referral - Closed Specialty Diagnoses / Procedures Referred By Contact Refer red To Contact Diagnoses Paroxysmal atrial fibrillation (H) Taran Lugo MD Procedures Zio Patch Monitor [address] [place] [address] Referral ID Status Reason Start Date Expiration Date Visits Requ ested Visits Authorized [id number] Closed 11/25/2017 11/25/2018 1 1 ER SLICING MACHINE OPERATOR Reason for Visit (Routine) - Closed Specialty Diagnoses / Procedures Referred By Contact Refer red To Contact Cardiology Procedures Zzrh Cardiac Test Rscc ZIOPATCH MONITOR [address] [place], [place] [address] Phone: Fax: Referral ID Status Reason Start Date Expiration Date Visits Requ ested Visits Authorized [id number] Closed 11/17/2017 11/17/2018 1 1 Encounter Details Date Type Department Care Team Description 11/17/2017 Hospital Encounter [facility] Taran Lugo [facility] atrial Care [place] MD fibrillation (H) [address] simplifyMD [address] [place], [place] [phone] Social History Tobacco Use Types Packs/Day Years [...] gets from the one mailed back. ER SLICING MACHINE OPERATOR Kiarra Rubalcava - 11/17/2017 3:49 PM CST Ziopatch heart monitor was set up. Patient stated that Dr. Quintanilla ordered the event monitor but Dr. Lugo wanted him to wear a ziopatch for 14 days. Patient was then set up with a ziopatch. ER SLICING MACHINE OPERATOR documented in this encounter Plan of Treatment Not on filedocumented as of this encounter Procedures Procedure Name Priority Date/Time Associated Diagnosis Comme nts ZIO PATCH HOLTER Routine 11/22/2017 Paroxysmal atrial Result s for this fibrillation (H) procedure a re in the results section . documented in this encounter Results Zio Patch Monitor (11/22/2017) Narrative [facility] - 11/22/2017 [facility] [address] [place] [phone] 11/17/2017 Patient: ??Speedy Burris [place] Chart: [id number] : ??1940 Age: ??77 year old Sex: ??male Procedure: ??ZioPatch Monitor. Handkerchief Maker performing hook-up: ??Kiarra Rubalcava Taran Gamboa MD CV CARDIAC SERVICES ORDERABL ES Performing Organization Address City/State/ZIP Code Phon e Number [facility] documented in this encounter Visit Diagnoses Diagnosis Paroxysmal atrial fibrillation (H) Atrial fibrillation documented in this encounter Care Teams Receptionist Scheduler Relationship Specialty Start Date End Date [facility], [facility] PCP - General 05/12/[address] [place] [address] documented as of this encounter
--- OUTSIDE RECORDS SUMMARY | 2022-08-15 11:30 | XMS_ITS | Encounter Summary ---
:1940 Author Organization [place] Address [address] [place] [address] Care Team Providers Name Role Phone Clinic, [facility] Primary Care Provider Reason for Visit Reason Onset Date Comments Referral 05/14/2017 MTM Encounter Details Date Type Department Care Team Description 05/14/2017 Telephone [facility] Pharm D Clinic, [facility] ([facility]) Project [id number] [place] [address] [phone] (Wo rk) Social History Tobacco Use Types [...] this time because they are not a [place] patient, will route to MTM Pharmacist/Provider as an FYI. Thank you for the referral. Juanita Herndon MTM Coordinator documented in this encounter Plan of Treatment Not on filedocumented as of this encounter Visit Diagnoses Not on filedocumented in this encounter Care Teams Commercial Census Taker Relationship Specialty Start Date End Date [facility], [facility] PCP - General 05/12/[address] [place] [address] documented as of this encounter
--- OUTSIDE RECORDS SUMMARY | 2022-08-15 11:30 | XMS_ITS | Encounter Summary ---
:1940 Author Organization [place] Address [facility] [place] [address] Care Team Providers Name Role Phone Clinic, [facility] Primary Care Provider [phone] Reason for Visit Reason Onset Date Comments Nicking Machine Operator 11/23/2017 Encounter Details Date Type Department Care Team Description 11/23/2017 Telephone [facility] Heart Erica Sal[place]ana, Nicking Machine Operator Clinic [place] RN [address] [facility] [address] [place] [address] Social History Tobacco Use Types Packs/Day Years Used Date Smoking Tobacco: Former Smokeless Tobacco: Never Comments: quit 1985 Alcohol Use Standard Drinks/Week Comments Yes 0 (1 standard drink = 0.6 oz pure alcoho l) 10 per week Sex Assigned at Date Recorded Not on file documented as of this encounter Miscellaneous Notes Telephone Encounter - Olive Saldana, JOSE - 11/27/2017 4:02 PM WELDING MACHINE OPERATOR THERMIT Call to daughter; Ed was seen again in the ED on 11-15-17, 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 Eliquis was started by Dr Quintanilla/ Eusebia ING MACHINE OPERATOR THERMIT Telephone Encounter - Taran Lugo MD - [...] if he is on one. Thanks, qp ING MACHINE OPERATOR THERMIT Telephone Encounter - Olive Saldana RN - 11/23/2017 2:47 PM WELDING MACHINE OPERATOR THERMIT Call from daughterRaquel. States her dad wore a ZioPatch ordered by Dr Lugo to assess AF burden (ischemic/infarct areas seen in the brains). Daughter states the monitor was worn for 4 days (preferred2 weeks); it fell off she feels d/t the hair on his chest. Will note to Dr Lugo to advise re: havinganother placed. Drake ING MACHINE OPERATOR THERMIT documented in this encounter Plan of Treatment Not on filedocumented as of this encounter Visit Diagnoses Not on filedocumented in this encounter Care Teams Blood Bank Attendant Relationship Specialty Start Date End Date [facility], [facility] PCP - General 05/12/[address] [place] [address] documented as of this encounter
--- OUTSIDE RECORDS SUMMARY | 2022-08-15 11:30 | XMS_ITS | Encounter Summary ---
:1940 Author Organization [place] Address [address] [facility] [place] [address] Care Team Providers Name Role Phone [facility], [facility] Primary Care Provider [phone] Reason for Referral Diagnostic Imaging CT Scan - Closed Specialty Diagnoses / Procedures Referred By Contact Refer red To Contact Diagnoses Abdominal aortic aneurysm Juan Lewis MD Procedures CTA Abdomen Pelvis with Contrast [address] [place] [address] Referral ID Status Reason Start Date Expiration Date Visits Requ ested Visits Authorized [id number] Closed 06/03/2018 06/03/2019 1 1 Encounter Details Date Type Department Care Team Description 06/03/2018 Orders Only [facility] Juan Lewis Abdompepe l aortic Vascular Clinic Félix Nava MD aneurysm (H) (Primary [address] ) [address] [place] [address] [place] [id number] Social History Tobacco Use Types Packs/Day Years [...] in the left kidney. There is corti ahnnah thinning and scarring in the kidneys. Bowel: [...] pture documented in this encounter Care Teams Tableau Developer Relationship Specialty Start Date End Date [facility], [facility] - General 05/12/[address] [place] [address] documented as of this encounter
--- OUTSIDE RECORDS SUMMARY | 2022-08-15 11:30 | XMS_ITS | Encounter Summary ---
:1940 Author Organization [place] Address [address] 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) [address] [place] [address] [place], [place] [phone] [address] (Work) [phone] Social History Tobacco Use Types Packs/Day Years [...] Primary documented in this encounter Care Teams Special Police Relationship Specialty Start Date End Date [facility], [facility] PCP - General 05/12/[address] [place], [place] [address] documented as of this encounter
--- OUTSIDE RECORDS SUMMARY | 2022-08-15 11:30 | XMS_ITS | Encounter Summary ---
:1940 Author Organization [place] Address [address] [facility] [place] [address] Care Team Providers Name Role Phone [facility], [facility] Primary Care Provider [phone] Reason for Referral - Closed Specialty Diagnoses / Procedures Referred By Contact Refer red To Contact Diagnoses Paroxysmal atrial fibrillation (H) Radha Galan MD Procedures Zio Patch Monitor [address] [place] [address] Referral ID Status Reason Start Date Expiration Date Visits Requ ested Visits Authorized [id number] Closed 11/25/2017 11/25/2018 1 1 OR TECHNICAL PROJECT MANAGER Reason for Visit Reason Comments Atrial Fib new Dx - Closed Specialty Diagnoses / Procedures Referred By Contact Refer red To Contact Diagnoses Paroxysmal atrial fibrillation (H) Radha Galan MD [address] [place] [address] Referral ID Status Reason Start Date Expiration Date Visits Requ ested Visits Authorized [id number] Closed 06/11/2017 06/11/2018 1 1 Encounter Details Date Type Department Care Team Description 11/11/2017 Office Visit [facility] Radha Galan [facility] atrial Heart Clinic [place] fibrillation (H) [address] [facility] [address] [facility] [address] [place] [address] [place] [address] [phone] Social History Tobacco Use Types Packs/Day Years [...] Comments Blood Pressure 146/78 11/11/2017 8:56 AM SENIOR TECHNICAL PROJECT MANAGER Pulse 54 11/11/2017 8:56 AM SENIOR TECHNICAL PROJECT MANAGER Temperature - - Respiratory Rate - - Oxygen Saturation - - Inhaled Oxygen Concentration - - Weight 88 kg (194 lb) 11/11/2017 8:56 AM SENIOR TECHNICAL PROJECT MANAGER Height 170.2 cm (5' 7.01) 11/11/2017 8:56 AM SENIOR TECHNICAL PROJECT MANAGER Body Mass Index 30.38 11/11/2017 8:56 AM SENIOR TECHNICAL PROJECT MANAGER documented in this encounter Progress Notes Radha [...] discharged on amiodarone and did see a professor of latin american studies over at [facility] for followup. He was recommended to wear a 24-hour Holter monitoring which demonstrated no evidence of atrial tachyarrhythmias. The patient checked his blood pressure twice a day and noticed heart rate in the 50s. He is doing quite well otherwise. Denies any shortness of breath, orthopnea, PND. His blood pressureseemed to be difficult to control and has seen a community health educator for that as well as for his [...] to see us in a year in [facility] to his convenience, as the patient does live in that area. We will notify the patient regarding results of the Zio Patch monitor and have him follow up with you or my partners in a year from now. RADHA GALAN MD MT: SEMAJ Name: SPEEDY HENDRICKS Account: [id number] : 1940 Service Date: 11/11/2017 Document: [id number] OR TECHNICAL PROJECT MANAGER Radha Galan MD - 11/11/2017 8:45 AM CST HPI and Plan: See dictation [id number] Orders Placed This Encounter Procedures ??? EKG [...] Oriented x 3 CC Radha Gamboa MD [address] [place] [address] OR TECHNICAL PROJECT MANAGER documented in this encounter Plan of Treatment Not on filedocumented as of this encounter Procedures Procedure Name Priority Date/Time Associated Diagnosis Comme nts EKG 12-LEAD Routine 11/12/2017 10:13 Paroxysmal atrial Result s for this COMPLETE W/READ - AM SENIOR TECHNICAL PROJECT MANAGER fibrillation (H) proced ure are in CLINICS the results section. documented in this encounter Results Zio Patch Monitor (11/22/2017) Narrative [facility] - 11/22/2017 [facility] [address] [facility] [address] [facility] [address] 11/17/2017 Patient: ??Speedy Hendricks Chart: [id number] : ??1940 Age: ??77 year old Sex: ??male Procedure: ??ZioPatch Monitor. Tank Driver performing hook-up: ??Kiarra Rubalcava Radha Gamboa MD CV CARDIAC SERVICES ORDERABL ES Performing Organization Address City/State/ZIP Code Phon e Number [facility] EKG 12-lead complete w/read - Clinics (performed today) (11/12/2017 10:13 AM SENIOR TECHNICAL PROJECT MANAGER) Narrative This result has an attachment that is no t available. Radha Gamboa MD ECG ORDERABLES documented in this encounter Visit Diagnoses Diagnosis Paroxysmal atrial fibrillation (H) Atrial fibrillation Paroxysmal atrial fibrillation (H) Atrial fibrillation documented in this encounter Care Teams Dial Mounter Relationship Specialty Start Date End Date [facility], [facility] PCP - General 05/12/[address] [place] [address] documented as of this encounter
--- OUTSIDE RECORDS SUMMARY | 2022-08-15 11:30 | XMS_ITS | Encounter Summary ---
:1940 Author Organization [facility] Address [address] [place] [id number] Care Team Providers Name Role Phone Clinic, [facility] Primary Care Provider [phone] Reason for Visit Reason Comments Transient Ischemic Attack Encounter Details Date Type Department Care Team Description 11/14/2017 - [facility] [address] [place] [address] Transient cerebral ischemia, unspecified type (Primary Dx); 11/15/2017 [facility] Jamie Bryan MD [address] [place] [address] Weakness on right side of face; Dept Uncontrolled hypertension [address] [place] [address] Social History Tobacco Use Types [...] Comments Blood Pressure 157/73 11/15/2017 11:35 AM ANALYTIC MANAGER Pulse 54 11/14/2017 11:13 PM ANALYTIC MANAGER Temperature 35.8 ??C (96.5 ??F) 11/15/2017 11:35 AM ANALYTIC MANAGER Respiratory Rate 18 11/15/2017 11:35 AM ANALYTIC MANAGER Oxygen Saturation 97% 11/15/2017 11:35 AM ANALYTIC MANAGER Inhaled Oxygen Concentration - - Weight 88.9 kg (196 lb) 11/15/2017 2:04 AM ANALYTIC MANAGER Height 177.8 cm (5' 10) 11/15/2017 2:04 AM ANALYTIC MANAGER Body Mass Index 28.12 11/15/2017 2:04 AM ANALYTIC MANAGER documented in this encounter Discharge Summaries Luis Antonio Quintanilla MD - 11/15/2017 11:18 AM CST [facility] Discharge Summary Name: Speedy Hendricks Date of : 1940 Age: [age] year old Date of Discharge: 11/15/2017 Date of Admission: 11/14/2017 Primary Care Provider: [facility] Discharge Physician: Luis Antonio Quintanilla MD Discharging [...] with NOAC. I also spoke with his Civil Engineering Teacher (Dr. Wilson) who agreed with starting lisinopril. [...] 50 Minutes. Luis Antonio Quintanilla MD Pager: [phone] YTIC MANAGER documented in this encounter Medications at Time [...] and placed in patient's chart. Samantha Vergara DIRECTOR PLANS YTIC MANAGER documented in this encounter H&P Notes Jamie Gates MD - 11/15/2017 1:33 AM CST [facility] Hospitalist Admission Note Name: Speedy Hendricks [...] -permissive HTN -monitor for recurrence of symptoms -PT/OT/AREA COUNSELOR -bedside swallow eval by RN, ok to [...] on amiodarone that was stopped by his cooler tender last week. Continues on 81mg aspirin and metoprolol 50mg bid. AC refused by patient/family due to enlarging AAA. -continue aspirin -continue metoprolol 50mg bid 4. Hx cardiac arrest: suspected due to mscontin buildup in setting of CKD. Hospitalized at [facility] 04/2017. Has been doing quite well since. 5. AAA: enlarging and up to 4.2cm when last checked. Due for repeat US next month. Father from AAA at age 61. 6. HTN: SBP elevated here initially to 185/99 now down to 140-150s in ED without intervention. 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 Lift room needed: No. Bariatric: No Cell Geneticist Needed: No Isolation: No. Infection: Not Applicable. [...] is able to stand, good equal bilateral skatesman, speech clear, gcs 15, AA&Ox3. Tests Performed: [...] chloride BOLUS (0 mLs Intravenous Stopped 11/14/17 8072) iopamidol (ISOVUE-370) solution 500 mL (120 mLs Intravenous Given 11/14/17 5638) Drips infusing: No For the majority of [...] hardware foot Thoracic surgery, right lung surgery [place] teeth extraction Family History: History reviewed. No [...] Screening for cardiovascular disease. Rate 58 bpm. AK interval 184 ms. QRS duration 82 ms. 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 Arriaga of the radiology service from [facility] regarding patient's presentation, findings, and plan of [...] observations and the provider's statements to me. [facility] Damian Mark MD 11/15/17 0149 YTIC MANAGER documented in this encounter Miscellaneous Notes [...] with: daughter OBSERVATION patient END time: 1210 YTIC MANAGER Plan of Care - Mitra Joshi, OT - 11/15/2017 9:39 AM CST Problem: Patient Care Overview Goal: Plan of Care/Patient Progress Review OT: Orders received and chart reviewed. Discussed with treatment team including physical therapist. No Ip OT needs at this time. Will complete orders YTIC MANAGER Plan of Care - Brittany Alcantar, PT - 11/15/2017 9:23 AM CST Problem: Patient Care Overview Goal: Plan of Care/Patient Progress Review PT: Received orders for evaluation and treatment; per chart review and Obs team, no inpatient therapy needs at this time (issues have resolved). Will complete therapy orders. YTIC MANAGER Plan of Care - Ca Major, JOSE - 11/15/2017 8:00 AM CST Problem: Patient Care Overview Goal: Plan of Care/Patient Progress Review PRIMARY DIAGNOSIS: TIA R/O OUTPATIENT/OBSERVATION GOALS TO BE MET BEFORE DISCHARGE: 1. Orthostatic performed: No 2. Diagnostic testing complete & at baseline neurologic testing: Yes 3. Cleared by consultants (if involved): No 4. Interpretation of cardiac rhythm per sterile processing technician: SR 5. Tolerating adequate PO diet and medications: Yes 6. Return to near baseline physical activity or neurologic status: Yes Hooker Off Nurse Safe discharge environment identified: Yes Barriers to discharge: Yes Entered by: Ca Major 11/15/2017 Please review provider order for any additional goals. Nurse to notify provider when observation goals have been met and patient is ready for discharge. 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 YTIC MANAGER Plan of Care - Debra Araujo RN - 11/15/2017 2:30 AM CST Problem: Patient Care Overview Goal: Plan of Care/Patient Progress Review Outcome: Improving ROOM # 226 Living Situation (if not independent, order SW consult): lives independently Facility name: personal care worker: daughters listed on chart Activity level at baseline: ind Activity level on admit: ind Patient registered to observation; given Patient Bill of Rights; given the opportunity to ask questions about observation status and their plan of care. Patient has been oriented to the observation room, bathroom and call light is in place. Discussed discharge goals and expectations with patient/family. YTIC MANAGER documented in this encounter Plan of Treatment Not on filedocumented as of this encounter Procedures Procedure Name Priority Date/Time Associated Comments Diagnosis MR BRAIN W/O & W Routine 11/15/2017 9:15 AM Resul ts for this CONTRAST ANALYTIC MANAGER procedure are i n the results section. BASIC METABOLIC PANEL Routine 11/15/2017 6:37 AM Weakness on r ight Results for this ANALYTIC MANAGER side of face procedure are i n the results section. EKG 12-LEAD, TRACING Routine 11/15/2017 2:08 AM R esults for this ONLY ANALYTIC MANAGER procedure are i n the results section. CT HEAD W CONTRAST STAT 11/14/2017 11:58 Resul ts for this PM ANALYTIC MANAGER procedure are i n the results section. CTA HEAD NECK W STAT 11/14/2017 11:53 Results for this CONTRAST PM ANALYTIC MANAGER procedure are i n the results section. CT HEAD W/O CONTRAST STAT 11/14/2017 11:39 Res ults for this PM ANALYTIC MANAGER procedure are i n the results section. CBC WITH PLATELETS & Routine 11/14/2017 11:29 Res ults for this DIFFERENTIAL PM ANALYTIC MANAGER procedure are i n the results section. TROPONIN I Routine 11/14/2017 11:29 Results for this PM ANALYTIC MANAGER procedure are i n the results section. INR Routine 11/14/2017 11:29 Results for this PM ANALYTIC MANAGER procedure are i n the results section. PARTIAL THROMBOPLASTIN Routine 11/14/2017 11:29 R esults for this TIME PM ANALYTIC MANAGER procedure are i n the results section. BASIC METABOLIC PANEL Routine 11/14/2017 11:29 Re sults for this PM ANALYTIC MANAGER procedure are i n the results section. EKG 12-LEAD, TRACING STAT 11/14/2017 11:22 Res ults for this ONLY PM ANALYTIC MANAGER procedure are i n the results section. documented in this encounter Results MRI Brain w & w/o contrast (11/15/2017 9:15 AM ANALYTIC MANAGER) Anatomical Region Laterality Modality Head, SUBRAD MR NEURO, UMP MR NEURO, RAD MR Magnetic Resonance Specimen (Source) Anatomical Location Collection Method / Collectio n Time Received Time / Laterality Volume Impressions 11/15/2017 9:39 AM ANALYTIC MANAGER IMPRESSION: ?? 1. No evidence of acute infarct, mass, h emorrhage, or herniation. 2. Moderate diffuse parenchymal volume l oss and white matter changes likely due to chronic microvascular isch emic disease without significant change since prior. KATIA DAVID MD Narrative 11/15/2017 9:39 AM ANALYTIC MANAGER MRI BRAIN WITHOUT AND WITH CONTRAST ??11/15/2017 [...] (ABNORMAL) Basic metabolic panel (11/15/2017 6:37 AM [facility]) Analysis Performed At Patho logist Time Signature Sodium 141 133 - 144 11/15/2017 [facility] mmol/L 7:04 AM [facility] Potassium 4.1 3.4 - 5.3 11/15/2017 [facility] mmol/L 7:04 AM [facility] Chloride 109 94 - 109 11/15/2017 [facility] mmol/L 7:04 AM [facility] Carbon Dioxide 25 20 - 32 [facility]/15/2017 [facility] 7:04 AM [facility] Anion Gap 7 3 - 14 11/15/2017 [facility] mmol/L 7:04 AM [facility] Glucose 105 (H) 70 - 99 11/15/2017 [facility] mg/dL 7:04 AM [facility] Urea Nitrogen 33 (H) 7 - 30 11/15/2017 [place] mg/dL 7:04 AM [facility] Creatinine 1.51 (H) 0.66 - 11/15/2017 [facility] 1.25 mg/dL 7:04 AM [facility] GFR Estimate 45 (L) >60 11/15/2017 [place] mL/min/1.7 7:[address] Comment: Non GFR Calc GFR Estimate If 55 (L) >60 mL/min/1.7m2 11/15/2017 7:04 A [facility] Comment: GFR Calc Calcium 8.8 8.5 - 10.1 mg/dL 11/15/2017 7:04 AM [facility] Specimen Anatomical Collection Method Collection Time Receive d Time (Source) Location / / Volume Laterality Blood specimen 11/15/2017 6:37 AM 018 6:38 (specimen) ANALYTIC MANAGER AM ANALYTIC MANAGER Jamie Gates MD LAB - BLOOD ORDERABLES Performing Organization Address City/State/ZIP Code Phon e Number [facility] [address] [place], [place] [address] [facility] [address] [address] [phone] EKG 12-lead, tracing only (11/15/2017 2:08 AM ANALYTIC MANAGER) [facility] gist Method Time Signature Interpretation ECG Click View RADIOLOGY Image link RESULTS to view waveform and result Specimen (Source) Anatomical Collection Method Collection Time Re ceived Time Location / / Volume Laterality 11/15/2017 2:08 AM ANALYTIC MANAGER Jamie Gates MD ECG ORDERABLES Performing Organization Address City/[facility]/ZIP Code Phon e Number RADIOLOGY RESULTS CT Head w Contrast (11/14/2017 11:58 PM ANALYTIC MANAGER) Anatomical Region Laterality Modality Head, NEURO, SUBRAD CT NEURO, SUBRAD CT NEURO, UMP CT Computed Tomography NEURO, RAD CT Specimen (Source) Anatomical Location Collection Method / Collectio n Time Received Time / Laterality Volume Impressions 11/15/2017 8:18 AM ANALYTIC MANAGER IMPRESSION: 1. Patent arteries in the neck [...] KATIA DAVID MD Narrative 11/15/2017 8:[address] ANGIOGRAM OF THE HEAD AND NECK [...] CTA Angiogram Head Neck (11/14/2017 11:53 PM ANALYTIC MANAGER) Anatomical Region Laterality Modality Head, SUBRAD CT NEURO, SUBRAD CT NEURO, UMP CT NEURO, Computed Tomography RAD CT Specimen (Source) Anatomical Location Collection Method / Collectio n Time Received Time / Laterality Volume Impressions 11/15/2017 8:18 AM ANALYTIC MANAGER IMPRESSION: 1. Patent arteries in the neck [...] KATIA DAVID MD Narrative 11/15/2017 8:[address] ANGIOGRAM OF THE HEAD AND NECK [...] CT Head w/o Contrast (11/14/2017 11:39 PM ANALYTIC MANAGER) Anatomical Region Laterality Modality Head, SUBRAD CT NEURO, SUBRAD CT NEURO, P CT NEURO, Computed Tomography RAD CT Specimen (Source) Anatomical Location Collection Method / Collectio n Time Received Time / Laterality Volume Impressions 11/15/2017 8:18 AM ANALYTIC MANAGER IMPRESSION: ?? 1. No evidence of acute intracranial hem orrhage, mass, or herniation. 2. There is generalized atrophy of the b rain. White matter changes are present in the cerebral hemispheres that are consistent with small vessel ischemic disease in this age angela ent. I agree with the overnight preliminary r eport by the radiologist. KATIA DAVID MD Narrative 11/15/2017 8:[address] SCAN OF THE HEAD WITHOUT CONTRAST [...] CT ORDERABLES Troponin I (11/14/2017 11:29 PM ANALYTIC MANAGER) P athologist Signature Troponin I ES <0.015 0.000 - 11/14/2017 [facility] 0.045 ug/L 11:53 PM [facility] Comment: The 99th percentile for upper reference range is 0.045 ug/L. ??Troponin values in the range of 0.045 - 0.120 ug/L may b e associated with risks of adverse clinical events. Specimen Anatomical Collection Method Collection Time Receive d Time (Source) Location / / Volume Laterality 11/14/2017 11:29 11/14/2017 PM ANALYTIC MANAGER 11:31 PM ANALYTIC MANAGER Damian Mark MD LAB - BLOOD ORDERABLES Performing Organization Address City/State/ZIP Code Phon e Number M [facility] [address] [place], [place] [address] [place] [address] [address] [place], [place] [address], [facility] [phone] Partial thromboplastin time (11/14/2017 11:29 PM ANALYTIC MANAGER) P athologist Signature PTT 30 22 - 37 sec 11/14/2017 [facility] 11:45 PM ANALYTIC MANAGER HOSPITAL Specimen Anatomical Collection Method Collection Time Receive d Time (Source) Location / / Volume Laterality 11/14/2017 11:29 11/14/2017 PM ANALYTIC MANAGER 11:31 PM ANALYTIC MANAGER Damian Mark MD LAB - BLOOD ORDERABLES Performing Organization Address City/[facility] Code Phon e Number M [facility] [address] [place], [place] [address] [place] [address] [address] [place], [place] [address], [facility] [phone] INR (11/14/2017 11:29 PM ANALYTIC MANAGER) P athologist Signature INR 0.96 0.86 - 1.14 11/14/2017 [facility] 11:45 PM ANALYTIC MANAGER HOSPITAL Specimen Anatomical Collection Method Collection Time Receive d Time (Source) Location / / Volume Laterality 11/14/2017 11:29 11/14/2017 PM ANALYTIC MANAGER 11:31 PM ANALYTIC MANAGER Damian Mark MD LAB - BLOOD ORDERABLES Performing Organization Address City/State/ZIP Code Phon e Number M [facility] [address] [place], [place] [address] [facility] [address] [phone] (ABNORMAL) CBC with platelets differential (11/14/2017 11:29 PM [facility]) [facility] Method Time Signature WBC 6.1 4.0 - 11/14/2017 [facility] 11.0 11:34 PM [facility] 10e9/L [facility] RBC Count 4.23 (L) 4.4 - 5.9 11/14/2017 [facility] 10e12/L 11:34 [facility] Hemoglobin 13.7 13.3 - 11/14/2017 [facility] 17.7 g/dL 11:34 [facility] Hematocrit 41.0 40.0 - 11/14/2017 [facility] 53.0 % 11:34 [facility] MCV 97 78 - 100 11/14/2017 [facility] fl 11:34 PM [facility] MCH 32.4 26.5 - 11/14/2017 [facility] 33.0 pg 11:34 [facility] MCHC 33.4 31.5 - 11/14/2017 [facility] 36.5 g/dL 11:34 [facility] RDW 12.9 10.0 - 11/14/2017 [facility] 15.0 % 11:34 [facility] Platelet Count 122 (L) 150 - 450 11/14/2017 [facility] 10e9/L 11:34 [facility] Diff Method Automated 11/14/2017 [facility] Method 11:34 [facility] % Neutrophils 57.3 % 11/14/2017 [facility] 11:34 [facility] % Lymphocytes 27.8 % 11/14/2017 [facility] 11:34 [facility] % Monocytes 11.3 % 11/14/2017 [facility] 11:34 [facility] % Eosinophils 3.1 % 11/14/2017 [facility] 11:34 [facility] % Basophils 0.3 % 11/14/2017 [facility] 11:34 [facility] % Immature 0.2 % 11/14/2017 [facility] Granulocytes 11:34 [facility] Nucleated RBCs 0 0 /100 11/14/2017 [facility] 11:34 [facility] Absolute 3.5 1.6 - 8.3 11/14/2017 [facility] Neutrophil 10e9/L 11:34 PM [facility] Absolute 1.7 0.8 - 5.3 11/14/2017 [facility] Lymphocytes 10e9/L 11:34 PM [facility] Absolute 0.7 0.0 - 1.3 11/14/2017 [facility] Monocytes 10e9/L 11:34 PM [facility] Absolute 0.2 0.0 - 0.7 11/14/2017 [facility] Eosinophils 10e9/L 11:34 PM [facility] Absolute 0.0 0.0 - 0.2 11/14/2017 [facility] Basophils 10e9/L 11:34 PM [facility] Abs Immature 0.0 0 - 0.4 11/14/2017 [facility] Granulocytes 10e9/L 11:34 PM [facility] Absolute 0.0 11/14/2017 [place] Nucleated RBC 11:34 PM [facility] Specimen Anatomical Collection Method Collection Time Receive d Time (Source) Location / / Volume Laterality 11/14/2017 11:29 11/14/2017 PM ANALYTIC MANAGER 11:31 PM ANALYTIC MANAGER Damian Mark MD LAB - BLOOD ORDERABLES Performing Organization Address City/State/ZIP Code Phon e Number [place] [address] [address] [place] [address] [facility] [address] [phone] (ABNORMAL) Basic metabolic panel (11/14/2017 11:29 PM ANALYTIC MANAGER) Analysis Performed At Patho logist Time Signature Sodium 141 133 - 144 11/14/2017 [place] mmol/L 11:53 PM [facility] Potassium 3.7 3.4 - 5.3 11/14/2017 [place] mmol/L 11:53 PM [facility] Chloride 107 94 - 109 11/14/2017 [place] mmol/L 11:53 PM [facility] Carbon Dioxide 26 20 - 32 11/14/2017 [place] mmol/L 11:53 PM [facility] Anion Gap 8 3 - 14 11/14/2017 [place] mmol/L 11:53 PM [facility] Glucose 103 (H) 70 - 99 11/14/2017 [facility] mg/dL 11:53 PM [facility] Urea Nitrogen 32 (H) 7 - 30 11/14/2017 [place] mg/dL 11:53 PM [facility] Creatinine 1.67 (H) 0.66 - 11/14/2017 [place] 1.25 mg/dL 11:53 PM [facility] GFR Estimate 40 (L) >60 11/14/2017 [place] mL/min/1.7 11:[address] Comment: Non GFR Calc GFR Estimate If 49 (L) >60 mL/min/1.7m2 11/14/2017 11:53 PM [facility] Comment: GFR Calc Calcium 8.9 8.5 - 10.1 mg/dL 11/14/2017 11:53 PM [facility] Specimen Anatomical Collection Method Collection Time Receive d Time (Source) Location / / Volume Laterality 11/14/2017 11:29 11/14/2017 PM ANALYTIC MANAGER 11:31 PM ANALYTIC MANAGER Damian Mark MD LAB - BLOOD ORDERABLES Performing Organization Address City/State/ZIP Code Phon e Number [place] [address] [address] [place] [address] [place] [address] [phone] EKG 12 lead (11/14/2017 11:22 PM ANALYTIC MANAGER) [facility] gist Method Time Signature Interpretation ECG Click View RADIOLOGY Image link RESULTS to view waveform and result Specimen (Source) Anatomical Collection Method Collection Time Re ceived Time Location / / Volume Laterality 11/14/2017 11:22 PM ANALYTIC MANAGER Damian Mark MD ECG ORDERABLES Performing Organization Address City/State/ZIP [facility] Phon e Number RADIOLOGY RESULTS documented in [...] chloride BOLUS New Bag 11/14/2017 11:48 PM ANALYTIC MANAGER 80 mLs Intravenous, 1,000 mL, ONCE, On 11/14/17 at 2330, For 1 dose acetaminophen (TYLENOL) tablet 1,000 mg Given 11/15/2017 1:11 AM ANALYTIC MANAGER 1,000 mg 1,000 mg, Oral, ONCE, On 11/15/17 at 0054, For 1 dose, Maximum acetaminophen dose from all sources = 75 mg/kg/day not to exceed 4 gram acetaminophen (TYLENOL) tablet 650 mg Given 11/15/2017 6:11 AM ANALYTIC MANAGER 650 mg 650 mg, Oral, EVERY 4 HOURS PRN, mild pain, Starting on 11/15/17 at 0204, Alternate ibuprofen (if ordered) with acetaminophen. Maximum acetaminophen dose from all sources = 75 mg/kg/day not to exceed 4 grams/day. gadobutrol (GADAVIST) injection 10 mL Given 11/15/2017 8:30 AM ANALYTIC MANAGER 10 mLs 10 mL, Intravenous, ONCE, On 11/15/17 at 0805, For 1 dose, Supplied by, and administered by MRI. iopamidol (ISOVUE-370) solution 500 mL Given 11/14/2017 11:48 PM ANALYTIC MANAGER 120 mLs 500 mL, Intravenous, ONCE, On 11/14/17 at 2330, For 1 dose lisinopril (PRINIVIL/ZESTRIL) tablet 5 m g 5 mg, Oral, DAILY, First dose on 11/15/17 at 1102, Hold for SBP < 100 LORazepam (ATIVAN) injection 0.5-1 mg Given 11/15/2017 8:20 AM ANALYTIC MANAGER 0.5 mg 0.5-1 mg, Intravenous, ONCE, On [...] Recently Administered Medications Times are shown in ANALYTIC MANAGER. Scheduled Medication Order 11/13/2017 11/14/2017 11/15/2017 0.9% [...] minutes.
documented in this encounter Care Teams Envelope Fold Operator Relationship Specialty Start Date End Date [facility], [facility] PCP - General 05/12/[address] [place] [id number] documented as of this encounter
--- OUTSIDE RECORDS SUMMARY | 2022-08-15 11:30 | XMS_ITS | Encounter Summary ---
:1940 Author Organization [facility] Address [address] [place] [id number] Care Team Providers Name Role Phone Clinic, [facility] Primary Care Provider [phone] Reason for Visit Reason Onset Date Comments Previsit 11/10/[address] Fatuma ng--visit 11/11/17 Encounter Details Date Type Department Care Team Description 11/10/2017 Telephone [facility] Heart Ebony Arnold, Previsit (New patient Clinic Tram GARCIA for Dr Lugo--visit [address] [facility] 11/11/17) [facility] [address] [place] [address] Social History Tobacco Use Types [...] reflect what patient is taking. PEngler, RN PROCESSOR documented in this encounter Plan of Treatment Not on filedocumented as of this encounter Visit Diagnoses Not on filedocumented in this encounter Care Teams Warehouse Stocker Relationship Specialty Start Date End Date [facility], [facility] PCP - General 05/12/[address] [place] [id number] documented as of this encounter
--- OUTSIDE RECORDS SUMMARY | 2022-08-15 11:30 | XMS_ITS | Encounter Summary ---
:1940 Author Organization [place] Address [address] [place] [address] Care Team Providers Name Role Phone Clinic, [facility] Primary Care Provider [phone] Reason for Visit CV Testing - Closed Specialty Diagnoses / Procedures Referred By Contact Refer red To Contact Cardiology Diagnoses Transient cerebral ischemia, unspecified type Luis Antonio Quintanilla MD Rh Echo [facility] Procedures ECHO COMPLETE BUBBLE STUDY WITH OPTISON Echo Complete Bubble [address] [address] [place] [address] [address] [place] [address] Phone: Fax: Referral ID Status Reason Start Date Expiration Date Visits Requ ested Visits Authorized [id number] Closed 11/16/2017 11/16/2018 1 1 Encounter Details Date Type Department Care Team Description 11/17/2017 Hospital Encounter [facility] Luis Antonio Quintanilla [facility] MD [place] ischemia, unspecified [facility] [address] type [address] [place], [place] [address] [address] [place], [place] [phone] [address] (Work) [phone] Social History Tobacco Use Types Packs/Day Years [...] Re sults for this BUBBLE STUDY WITH CHILD AND ADOLESCENT THERAPIST ischemia, procedure are in OPTISON unspecified type the results section. documented in this encounter Results ECHO COMPLETE BUBBLE STUDY WITH OPTISON (11/17/2017 2:35 PM CHILD AND ADOLESCENT THERAPIST) Anatomical Region Laterality Modality Echocardiography Specimen (Source) Anatomical Collection Method Collection Time Re ceived Time Location / / Volume Laterality 11/17/2017 1:54 PM CHILD AND ADOLESCENT THERAPIST Narrative 11/17/2017 3:15 PM CHILD AND ADOLESCENT THERAPIST [id number]^ARNAUD^LUIS ANTONIO^PIPPA [facility] Echocardiography Laboratory [address] [place] [address] Name: SPEEDY MCDUFFIE : 1940 Study Date: 11/17/2017 01:54 PM Age: 77 yrs Gender: Male Patient Location: [facility] Reason For Study: , Transient cerebral i [...] note might be different from the original. [id number]^ARNAUD^LUIS ANTONIO^PIPPA [facility] Echocardiography Laboratory [address] [place] [address] Name: SPEEDY MCDUFFIE : 1940 Study Date: 11/17/2017 01:54 PM Age: 77 yrs Gender: Male Patient Location: [facility] Reason For Study: , Transient cerebral i schemia, unspecified type Ordering Physician: LUIS ANTONIO QUINTANILLA Referring Physician: LUIS ANTONIO QUINTANILLA Performed By: Kiarra Ruablcava BSA: 2.1 m2 Height: 71 in Weight: [...] to 2mL with Given 11/17/2017 2:45 PM CHILD AND ADOLESCENT THERAPIST 3 mLs saline (OPTISON) diluted injection 3 mL 3 mL, Intravenous, ONCE, On Thu11/17/17 at 1445, For 1 dose, [facility] [id number] sodium chloride (PF) 0.9% PF flush 10 mL Given 11/17/2017 2:37 PM CHILD AND ADOLESCENT THERAPIST 10 mLs 10 mL, Intravenous, ONCE, On Thu11/17/17 at 1445, For 1 dose sodium chloride bacteriostatic 0.9 % flush 30 Given 2:37 PM CHILD AND ADOLESCENT THERAPIST 30 mLs mL 30 mL, Intravenous, ONCE, On Thu11/17/17 at 1445, For 1 dose documented in this encounter Care Teams Syrup Shed Supervisor Relationship Specialty Start Date End Date [facility], [facility] PCP - General 05/12/[address] [place] [address] documented as of this encounter
--- OUTSIDE RECORDS SUMMARY | 2022-08-15 11:30 | XMS_ITS | Encounter Summary ---
:1940 Author Organization [place] Address [address] [facility] [place] [address] Care Team Providers Name Role Phone Clinic, [facility] Primary Care Provider [phone] Reason for Visit Reason Onset Date Comments Medication Question 05/24/2018 Encounter Details Date Type Department Care Team Description 05/24/2018 Telephone [facility] Juan Lewis on Question Vascular Clinic Félix Nava MD [address] [place] [address] [address] [place] [id number] (Wo rk) Social History Tobacco Use Types [...] Additional comments: Please call Raquel his daughter [phone] Phone number to reach patient: Home number on file [phone] (home) Best Time: anytime Can we leave a detailed message on this number? YES Serena Almaguer MA documented in this encounter Plan of Treatment Not on filedocumented as of this encounter Visit Diagnoses Not on filedocumented in this encounter Care Teams Electricians Top Helper Relationship Specialty Start Date End Date Bandar, Kehinde [place] PCP - General 05/12/[address] [place] [address] documented as of this encounter
--- OUTSIDE RECORDS SUMMARY | 2022-08-15 11:30 | XMS_ITS | Encounter Summary ---
:1940 Author Organization [place] Address [address] [facility] [place] [address] Care Team Providers Name Role Phone Clinic, [facility] Primary Care Provider [phone] Reason for Visit Reason Onset Date Comments Appointment 06/18/2018 Encounter Details Date Type Department Care Team Description 06/18/2018 Telephone [facility] Vascular Juan Delcid MD Appointment Clinic [place] [address] [place] [address] [place] [address] [phone] Social History Tobacco Use Types Packs/Day Years [...] only with Dr. Lewis on 07/01/18 in [place]. Pt had no further questions at this [...] filedocumented in this encounter Care Teams Roll Trucker Relationship Specialty Start Date End Date Clinic, [facility] PCP - General 05/12/[address] [place] [address] documented as of this encounter
--- OUTSIDE RECORDS SUMMARY | 2022-08-15 11:30 | XMS_ITS | Encounter Summary ---
:1940 Author Organization [place] Address [address] [place] [address] Care Team Providers Name Role Phone [facility], [facility] Primary Care Provider [phone] Reason for Visit Reason Onset Date Comments Medication Question 05/13/2017 meds Encounter Details Date Type Department Care Team Description 05/13/2017 Telephone [facility] Heart Abimbola Brown M edication Question Clinic Tram GARCIA (meds) [address] [facility] [address] [place] [address] Social History Tobacco Use Types [...] and LM for her to call this sba underwriter back. JNelsonRN documented in this encounter Plan of Treatment Not on filedocumented as of this encounter Visit Diagnoses Not on filedocumented in this encounter Care Teams Acute Care Assistant Relationship Specialty Start Date End Date Clinic, Kehinde Santos PCP - General 05/12/17 [address] [place] [address] documented as of this encounter
--- OUTSIDE RECORDS SUMMARY | 2022-08-15 11:30 | XMS_ITS | Encounter Summary ---
:1940 Author Organization [place] Address [address] [place] [address] Care Team Providers Name Role Phone [facility], [facility] Primary Care Provider [phone] Reason for Referral Diagnostic Imaging CT Scan - Closed Specialty Diagnoses / Procedures Referred By Contact Refer red To Contact Diagnoses Abdominal aortic aneurysm Juan Lewis MD Procedures CTA Abdomen Pelvis with Contrast [address] [place] [address] Referral ID Status Reason Start Date Expiration Date Visits Requ ested Visits Authorized [id number] Closed 06/03/2018 06/03/2019 1 1 Reason for Visit Diagnostic Imaging CT Scan - Closed Specialty Diagnoses / Procedures Referred By Contact Refer red To Contact Diagnoses Abdominal aortic aneurysm Juan Lewis MD Procedures CTA Abdomen Pelvis with Contrast [address] [place] [address] Referral ID Status Reason Start Date Expiration Date Visits Requ ested Visits Authorized [id number] Closed 06/03/2018 06/03/2019 1 1 Encounter Details Date Type Department Care Team Description 06/07/2018 Hospital Encounter [facility] Juan Lewis Ab dominal aortic [facility] MD Elijah aneurysm (H) [address] [place] [address] [address] [place] [address] [phone] Social History Tobacco Use Types Packs/Day Years [...] dose documented in this encounter Care Teams Bobbin Cleaner Relationship Specialty Start Date End Date [facility] [place] PCP - General 05/12/[address] [place] [address] documented as of this encounter
--- OUTSIDE RECORDS SUMMARY | 2022-08-15 11:30 | XMS_ITS | Encounter Summary ---
:1940 Author Organization [place] Address [address] [facility] [place] [address] Care Team Providers Name Role Phone [facility], [facility] Primary Care Provider [phone] Reason for Visit Reason Onset Date Comments Referral 05/21/2018 Encounter Details Date Type Department Care Team Description 05/21/2018 Telephone [facility] Vascular Clinic Cindy Taylor, nutrition partner [place] [address] [facility] [address] [place] [address] Social History Tobacco Use Types [...] 05/21/2018 4:03 PM CDT Pt referred to [facility] via fax by Marija Ramirez MD for known AAA increased in size to 4.4X4.6 cm- pt has known about AAA for past 55 years and has monitored it with annual US. US done on 05/17/18 in care [facility] from [facility]. Pt needs to be scheduled for consult with Dr. Lewis. Will route to scheduling to coordinate an appointment within the next week. SHASTA Chand, RN documented in this encounter Plan of Treatment Not on filedocumented as of this encounter Visit Diagnoses Not on filedocumented in this encounter Care Teams Box Office Agent Relationship Specialty Start Date End Date Clinic, [facility] PCP - General 05/12/[address] [place] [address] documented as of this encounter
--- OUTSIDE RECORDS SUMMARY | 2022-08-15 11:31 | XMS_ITS | Encounter Summary ---
:1940 Author Organization [place] Address [address] [place] [address] Care Team Providers Name Role Phone Primary Dr, Dipak WELSH Primary Care Provider Unavailable Reason for Visit Reason Comments Derm Problem MOHS Encounter Details Date Type Department Care Team Description 11/06/2016 Office Visit [facility] Jon White Basal cell carcinoma of nose (Primary Dx); Clinic [place] MD Aubrey Lentigo; [place] [address] (seborrheic keratosis); [address] [address] [place], [place] [phone] [address] (Work) [phone] Social History Tobacco Use Types Packs/Day Years Used Date Smoking Tobacco: Former Comments: quit 1985 Alcohol Use Standard Drinks/Week Comments Yes 0 (1 standard drink = 0.6 oz pure alcoho l) 10 per week Sex Assigned at Date Recorded Not on file documented as of this encounter Last Filed Vital Signs Vital Sign Reading Time Taken Comments Blood Pressure 203/105 11/06/2016 10:05 AM DISABILITY PROGRAM NAVIGATOR Pulse 64 11/06/2016 10:05 AM DISABILITY PROGRAM NAVIGATOR Temperature - - Respiratory Rate - - Oxygen Saturation 96% 11/06/2016 10:05 AM DISABILITY PROGRAM NAVIGATOR Inhaled Oxygen Concentration - - Weight - - Height - - Body Mass Index - - documented in this encounter Patient Instructions Patient InstructionsMcLillian Aquino CMA - 11/06/2016 10:52 AM CST Sutured Wound Care [facility]: [phone] [facility]: [phone] ? No strenuous activity for 48 hours. [...] occurs. In case of emergency phone:Dr White [phone] BILITY PROGRAM NAVIGATOR documented in this encounter Progress Notes Jon [...] ??? Ent surgery tonsils ??? Appendectomy ??? Pray teeth[ ??? Remove hardware foot 09/30/2012 Procedure: [...] will return in one week forwound evaluation. BILITY PROGRAM NAVIGATOR documented in this encounter Nursing Notes Farzana Harris CMA - 11/06/2016 10:52 AM CST Surgical Office Location: [facility] [address] [place] [address] BILITY PROGRAM NAVIGATOR Lillian Aj CMA - 11/06/2016 10:06 AM CST Initial BP 203/105 mmHg Pulse 64 SpO2 96% Estimated body mass index is 32.10 kg/(m^2) as calculated from the following: Height as of 10/22/12: 1.702 m (5' 7). Weight as of 10/22/12: 92.987 kg (205 lb). . BILITY PROGRAM NAVIGATOR documented in this encounter Plan of Treatment Not on filedocumented as of this encounter Procedures Procedure Name Priority Date/Time Associated Diagnosis Comme nts HC MOHS Routine 11/06/2016 10:51 AM Basal cell carcinoma of HEAD/NCK/HND/FT/GEN DISABILITY PROGRAM NAVIGATOR nose 1ST STAGE UP T0 5 BLOCKS HC ADJ TISSUE XFER Routine 11/06/2016 10:51 AM Basal cell carc inoma of LID/NOS/EAR/LIP DISABILITY PROGRAM NAVIGATOR nose 10.1-30 CM documented in this encounter Visit Diagnoses Diagnosis Basal cell carcinoma of nose - Primary Basal cell carcinoma of skin of other an d unspecified parts of face Lentigo Other dyschromia SK (seborrheic keratosis) Other seborrheic keratosis Angioma Hemangioma of unspecified site documented in this encounter Care Teams Er Nurse Relationship Specialty Start Date End Date Primary Dipak Kasper MD PCP - General 09/21/1204/18 documented as of this encounter
--- OUTSIDE RECORDS SUMMARY | 2022-08-15 11:31 | XMS_ITS | Encounter Summary ---
:1940 Author Organization [place] Address [address] [place] [address] Care Team Providers Name Role Phone Primary Dipak Kasper MD Primary Care Provider Unavailable Celina Coley Primary Care Provider [facility] Primary Care Provider [phone] Jon White MD Unavailable [phone] Ramiro Loco MD Unavailable Encounter Details Date Type Department Care Team Description 05/03/2014 Surgery - [facility] Hang Mcculre, [facility] [place] [facility] [address] [place] [address] [place] [address] [phone] (Wo rk) Social History Tobacco Use Types [...] documented as of this encounter Care Teams Fiberglass Roller Relationship Specialty Start Date End Date Primary Dipak Kasper MD PCP - General 09/21/1204/18 Celina Coley PCP - General Family Practice 05/05/17 05/11/[address] [address] Kehinde Portillo PCP - General 05/12/[address] [address] Jon White Assigned Surgical Provider 08/10/20 12/08/20 MD [place] [address] [place], [place] [id number] Ramiro Loco MD Assigned Heart and 08/10/20 05/11/21 [address] [place] [address] Vascular Provider [place] [address] documented as of this encounter
--- OUTSIDE RECORDS SUMMARY | 2022-08-15 11:31 | XMS_ITS | Encounter Summary ---
:1940 Author Organization [facility] Address [address] [place] [id number] Care Team Providers Name Role Phone Celina Coley Primary Care Provider [facility] [place] [facility] Provider [phone] Reason for Referral Specialty Diagnoses / Procedures Referred By Contact Tam parson To Contact Sanjuanita Ponce RN Referral ID Status Reason Start Date Expiration Date Visits Requ ested Visits Authorized Specialty Diagnoses / Procedures Referred By Contact Tam parson To Contact Adrian Pleitez MD [address] [address] Referral ID Status Reason Start Date Expiration Date Visits Requ ested Visits Authorized Specialty Diagnoses / Procedures Referred By Contact Tam parson To Contact Adrian Pleitez MD [address] [facility] [address] [address] Referral ID Status Reason Start Date Expiration Date Visits Requ ested Visits Authorized Specialty Diagnoses / Procedures Referred By Contact Tam parson To Contact Adrian Pleitez MD [address] [place] [address] Referral ID Status Reason Start Date Expiration Date Visits Requ ested Visits Authorized ome Health Therapies & Aides Specialty Diagnoses / Procedures Referred By Contact Refer red To Contact Adrian Pleitez MD [address] [place] [address] Referral ID Status Reason Start Date Expiration Date Visits Requ ested Visits Authorized - Closed Specialty Diagnoses / Procedures Referred By Contact Refer red To Contact Diagnoses Paroxysmal atrial fibrillation (H) Taran Lugo MD [address] [place] [address] Referral ID Status Reason Start Date Expiration Date Visits Requ ested Visits Authorized [id number] Closed 06/11/2017 06/11/2018 1 1 Reason for [...] part of lung (H) Unresponsiveness Intensive Care [address] [address] Phone: Referral ID Status Reason Start Date Expiration Date Visits Requ ested Visits Authorized [id number] 1 1 Encounter Details Date Type Department Care Team Description 05/05/2017 [facility] Leesa Martinez MD [facility] [address] [place] [address] Opioid overdose, accidental or unintenti onal, initial encounter (Primary Dx); - Encounter Miladys Phillips MD [address] [id number] Aspiration pneumonia, unspecified aspira tion pneumonia type, unspecified laterality, unspecified part of lung (H); 05/12/2017 [facility] Stephany Farley MD [address] [place], [place] [id number] Encephalopathy; [address] Paroxysmal atrial fibrillati on (H); [place] Hyperlipidemia LDL goal <70; [id number] Acute left-sided low back pa in without sciatica; [phone] Unresponsivenes s Social History Tobacco Use Types [...] Pleitez MD - 05/12/2017 3:12 PM CDT [facility] Hospitalist discharge note Date of Service (when [...] follow-up with cardiology, primary care physician in [place] Speedy Mcduffie is a 76 year old male with a past medical history of Htn, CKD, atrial tachycardia, chronic back pain who was admitted on 05/05/2017 with encephalopathy thought due to opioid overdose. ?? 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 Also had been taking gabapentin and flexeril. [...] ? Suspected Aspiration PNA: as above Daughter (MORNING NEWS ANCHOR) found patient with large amount of material [...] had been managed by his PMD and SENIOR WEB DEVELOPER was on Morphine 15 mg po BID (daughter reported that in the past he was confused with Oxycontin),??[place] 7/325 mg 1 tab po q4-6 h; he is also on scheduled Gabapentin and prn Flexeril -had a recent admission to [facility] from 04/28-04/30 for severe lower [...] then stop - Consulted PT/OT. ? HTN: SENIOR WEB DEVELOPER on Metoprolol which was dced with bradycardia. [...] Mendes LSW - 05/12/2017 11:10 AM CDT [facility]: [phone]. documented in this encounter Medications at Time [...] continuation of in hospital lisinopril, restart of SENIOR WEB DEVELOPER metoprolol (had been advised against rate slowing agents by cardiology), restart of SENIOR WEB DEVELOPER flexeril and unclear amiodarone plan. states that [...] phone # to [facility] and names of last 2 providers seen. -Provided information on creatinine and GFR lab values as well as last administered doses of PRN metoprolol (05/09), PO metoprolol (05/07 - 1/ SENIOR WEB DEVELOPER dose) and daily lisinopril (05/12) during hospital [...] located a hospital bed for rent near [place] and has made arrangements for delivery today. SW notified [place] and hospitalist to meet with daughter.per request. CC made referral to [facility] per request. Pt's family has used this agency previously. Team Members notified: Hospitalist, RN, CC, MICROFILM MACHINE OPERATOR Plan: Discharge home today with family and home care services through [facility]. Sanjuanita Ponce RN - 05/12/2017 9:44 AM CDT Met w/ pt's dtr Raquel and ADRIANO to discuss dc planning. Raquel has some concerns about pt going home rather than TCU but her sister Chastity is on FMLA and intends to stay at home to care for him. Raquel is a [facility] ICU nurse and critical care paramedic at [employer]. She has been on FMLA but [...] better today and therapy is recommending OP PT/OT/HEALTH EDUCATION DIRECTOR if not going to TCU. His pain level is still high with ambulation so he would benefit from home care initially as he will not be going out except to his appts. He would need an RN as well. Raquel would prefer to use home care through the [facility] as it is local and they have used it before. Raquel has contacted a hospital rental company and intends to rent a hospital bed for a while at home. She states this will be delivered today and she is taking care of those arrangements. Also discussed multiple f/u appts needed. She would like to stay within the [facility] system for vascular, cardiac, and sleep study. Contacted [facility] intake [phone] and spoke to Lynn. They would be able to see pt tomorrow at home. Faxed [phone] face sheet and H&P. Will fax orders when completed. Contacted [facility] to make f/u appt with Dr Lugo. Appt made for ThuJun 19 at 2:15 to discuss AC in light of AAA. Spoke w/ Natasha Iraheta PACKING MACHINE PILOT CAN ROUTER [facility]. They do not need to see pt in f/u as strokes likely more related to hypoxia than AF and cardiology will be addressing AF issue. Contacted pt's PCP Dr Celina Coley at [facility]. Appt made for 05/15 at 10:00. Will fax handoff when dc orders complete. Contacted [facility] and appt made for ThuJun [address] Taylor to discuss sleep study. Await Dr Pleitez for further orders for vascular and urology f/u timing. Discussed transportation with dtr Raquel and bedside RN. Raquel's sister was planning on bringing [place] to bead picker pt and he would have to [...] Lugo to discuss anticoagulation. Faxed orders to [facility] and left message with Lynn to call Raquel at [phone] toschedule appts. Sent [facility] handoff. Mattie Yanes - 05/11/2017 4:28 PM CDT [facility] Progress Note [facility], Palliative Team PRIMARY FOCUS: ? Symptom/pain management ?? Emotional/spiritual/sikh distress ILLNESS CIRCUMSTANCES: ?? Reviewed documentation. Reflective conversation shared with Ed, which integrated elements of illnessand family narratives.? Context of Serious Illness/Symptom(s) - Pt overdosed on opioid pain relievers accidentally upon treatment for a broken tailbone. ?? Resources for Support - Strong family support from and two daughters, along with a brother who is a Bahai filleter DISTRESS: ? Emotional/Existential/Relational Distress - Pt is notably thankful for surviving this overdose. He sees that he is not finished with this life, and he is beginning to look toward how best to spend his remaining time. 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 ?? Spiritual/Samaritan Distress - None discussed. Pt surprisingly comfortable with his reality of surviving. ?? Social/Cultural/Economic Distress - None discussed? SPIRITUAL/EPISCOPAL (Coping): ? Druze/Mariah - [facility]. Pt did not particularly identify his own [...] has not discharged. ? Mattie Berrios M.Div. Bilingual Elementary School Teacher Pager [phone] Kassy Go APRN POULTRY BARN MANAGER - 05/11/2017 3:55 PM CDT [facility] Pall[facility] Progress Note Speedy Mcduffie Date [...] if evening or weekend. Milana Go APRN, [facility] Palliative Medicine Pager [phone] Attestation: Total time on the floor involved [...] and are neighbors. Pt' daughterRaquel is an MORNING NEWS ANCHOR and daughter Chastity is a ship's pilot. Chastity states she is currently on [...] Nikhil Rodriguez, - 05/11/2017 10:51 AM CDT [facility] Hospitalist Progress Note Nikhil Rodriguez D.O. Date of service (Date I saw patient): 05/11/2017 Assessment & Plan Speedy Mcduffie is a 76 year old male with a past medical history of Htn, CKD, atrial tachycardia, chronic back pain who was admitted on 05/05/2017 with encephalopathy thought due to opioid overdose. 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 Also had been taking gabapentin and flexeril. [...] ? Suspected Aspiration PNA: as above Daughter (MORNING NEWS ANCHOR) found patient with large amount of material [...] had been managed by his PMD and SENIOR WEB DEVELOPER was on Morphine 15 mg po BID (daughter reported that in the past he was confused with Oxycontin),??[place] 7/325 mg 1 tab po q4-6 h; he is also on scheduled Gabapentin and prn Flexeril -had a recent admission to [facility] from 04/28-04/30 for severe lower [...] then stop - Consulted PT/OT. ? HTN: SENIOR WEB DEVELOPER on Metoprolol which was dced with bradycardia. [...] outpt appt will be scheduled to discuss longwall headgate operator option in light of AAA Interval History: [...] Taran Lugo MD Counters, Natasha Li APRN POULTRY BARN MANAGER - 05/11/2017 9:03 AM CDT [facility] [place] [facility] Daily Note Admission Date:05/05/2017 Date of [...] Sensory: Normal to light touch Coordination: Intact [id number] Gait: Up with assistance Cardiovascular: Regular rate [...] of small vessel ischemic disease. Natasha Iraheta, MEDIA RELATIONS ASSOCIATE-BC Associated attestation - Raúl Keane MD - [...] Greene MD - 05/10/2017 5:[address] [facility] Hospitalist Progress Note Assessment & Plan Speedy Mcduffie is a 76 year old male who was admitted on 05/05/2017. 76 year old male who was brought in for evaluation of unresponsiveness. ? 1. Altered mental status/Acute toxic encephalopathy Patient found by daughter (Raquel, MORNING NEWS ANCHOR) after likely prolonged period of unresponsiveness and suspected aspiration. Airway was cleared by daughter, but patient was hypoxic in the 60s for what soundslike at least 40 minutes before oxygen was available. Patient responded to narcan and thus it was suspected that patient had an unintentional opioid overdose with worsening of renal function and taking scheduled morphine 15mg ER BID with [place] 7.5/325 1-1.5 tabs PRN q4-6 hours started [...] ? 2. Suspected Aspiration PNA - Daughter (MORNING NEWS ANCHOR) found patient with large amount of material [...] had been managed by his PMD and SENIOR WEB DEVELOPER was on Morphine 15 mg po BID (daughter reported that in the past he was confused with Oxycontin),??[place] 7/325 mg 1 tab po q4-6 h; he is also on scheduled Gabapentin and prn Flexeril -and a recent admission to [facility] from 04/28-04/30 for severe lower [...] Consulted PT/OT. ? 6. H/o HTN - SENIOR WEB DEVELOPER on Metoprolol 50 mg po BID for [...] Delgado MD - 05/10/2017 4:04 PM CDT [facility] Progress Note Date of Service (when [...] Delgado MD - 05/09/2017 2:04 PM CDT [facility] Progress Note Date of Service (when [...] Greene MD - 05/09/2017 11:58 AM CDT [facility] Hospitalist Progress Note Assessment & Plan Speedy Mcduffie is a 76 year old male who was admitted on 05/05/2017. 76 year old male who was brought in for evaluation of unresponsiveness. ? 1. Altered mental status/Acute toxic encephalopathy Patient found by daughter (Raquel, MORNING NEWS ANCHOR) after likely prolonged period of unresponsiveness and suspected aspiration. Airway was cleared by daughter, but patient was hypoxic in the 60s for what soundslike at least 40 minutes before oxygen was available. Patient responded to narcan and thus it was suspected that patient had an unintentional opioid overdose with worsening of renal function and taking scheduled morphine 15mg ER BID with [place] 7.5/325 1-1.5 tabs PRN q4-6 hours started [...] ? 2. Suspected Aspiration PNA - Daughter (MORNING NEWS ANCHOR) found patient with large amount of material [...] had been managed by his PMD and SENIOR WEB DEVELOPER was on Morphine 15 mg po BID (daughter reported that in the past he was confused with Oxycontin),??[place] 7/325 mg 1 tab po q4-6 h; he is also on scheduled Gabapentin and prn Flexeril -and a recent admission to [facility] from 04/28-04/30 for severe lower [...] Consulted PT/OT. ? 6. H/o HTN - SENIOR WEB DEVELOPER on Metoprolol 50 mg po BID for [...] nurse, pt was unresponsive [facility] Pt responded to Narcan, suspected accidental [...] Bed to Chair/Chair to Bed Level of Def[place]: Bed to Chair moderate assist (50% patients effort) Physical Assist/Nonphysical Assist: Bed to Chair 2 persons Weight-Bearing Restrictions full weight-bearing Assistive Device - Transfer Skill Bed to Chair Chair to Bed Rehab Eval rolling walker Transfer Skill: Sit to Stand Level of [place]: Sit/Stand minimum assist (75% patients effort) Physical Assist/Nonphysical Assist: Sit/Stand 2 persons Transfer Skill: Sit to Stand full weight-bearing Assistive Device for Transfer: Sit/Stand rolling walker Transfer Skill: Toilet Transfer Level of [place]: Toilet moderate assist (50% patients effort) Physical Assist/Nonphysical Assist: Toilet 2 persons Assistive Device seat riser;grab bars Balance Balance Comments Reduced dynamic balance Upper Body Dressing Level of [place]: Dress Upper Body minimum assist (75% patients effort) Lower Body Dressing Level of [place]: Dress Lower Body maximum assist (25% patients effort) Physical Assist/Nonphysical Assist: Dress Lower Body 1 person assist Grooming Level of Defiance: Grooming stand-by assist Activities of Daily Living [...] in agreement with plan of care Yes [employer] AM-PAC TM 6 Clicks ?? 2016, Trustees of [facility], under license to [employer]. All rights reserved. 6 Clicks Short Forms Basic Mobility Inpatient Short Form [facility] AM-PAC??? 6 Clicks Daily Activity Inpatient Short [...] for IV heparin. Previously reported pauses so sailboat captain BB on hold. Could consider resuming BB and monitoring for pauses or short acting CCB. Would recommending re- consulting EP in am if cards agrees. Continue to monitor on tele. Lindsay Watt PA-C - 05/08/2017 9:13 PM CDT Paged by nursing regarding persistent sinus tachycardia in the 140s this evening. Pt asymptomatic. Reviewed chart. Pt with tachybrady syndrome. Cardiology following. Pt's SENIOR WEB DEVELOPER BB has been on hold as wasalternating between periods of sinus tach and sinus dani with up to 3 second pause. Will order PRN IV Metoprolol 2.5 mg q 4 hrs PRN. Monitor. If pt should become symptomatic or HR's continue to be persistently elevated, could increase dose of IV Metoprolol or reinitiate SENIOR WEB DEVELOPER BB. Stephany Farley MD - 05/08/2017 2:27 PM CDT [facility] Hospitalist Progress Note Date of Service (when I saw the patient): 05/08/2017 Assessment & Plan Speedy Mcduffie is a 76 year old male who was brought in for evaluation of unresponsiveness. ? 1. Altered mental status/Acute toxic encephalopathy Patient found by daughter (Raquel, MORNING NEWS ANCHOR) after likely prolonged period of unresponsiveness and suspected aspiration. Airway was cleared by daughter, but patient was hypoxic in the 60s for what soundslike at least 40 minutes before oxygen was available. Patient responded to narcan and thus it was suspected that patient had an unintentional opioid overdose with worsening of renal function and taking scheduled morphine 15mg ER BID with [place] 7.5/325 1-1.5 tabs PRN q4-6 hours started [...] ? 2. Suspected Aspiration PNA - Daughter (MORNING NEWS ANCHOR) found patient with large amount of material [...] had been managed by his PMD and SENIOR WEB DEVELOPER was on Morphine 15 mg po BID (daughter reported that in the past he was confused with Oxycontin),??[place] 7/325 mg 1 tab po q4-6 h; he is also on scheduled Gabapentin and prn Flexeril -and a recent admission to [facility] from 04/28-04/30 for severe lower [...] Consulted PT/OT. ? 6. H/o HTN - SENIOR WEB DEVELOPER on Metoprolol 50 mg po BID for [...] planning totake patient home. Stephany Farley MD [phone] (P) Text page (7am to 6pm) Interval [...] hospital, year, though thought he was in [place], [place]. No acute distress. Non-toxic. Respiratory: Clear [...] MD - 05/07/2017 10:00 PM CDT [facility] Hospitalist Progress Note Date of Service (when I saw the patient): 05/07/2017 Assessment & Plan Speedy Mcduffie is a 76 year old male who was brought in for evaluation of unresponsiveness. ? 1. Altered mental status/Acute toxic encephalopathy Patient found by daughter (Raquel, MORNING NEWS ANCHOR) after likely prolonged period of unresponsiveness and suspected aspiration. Airway was cleared by daughter, but patient was hypoxic in the 60s for what soundslike at least 40 minutes before oxygen was available. Patient responded to narcan and thus it was suspected that patient had an unintentional opioid overdose with worsening of renal function and taking scheduled morphine 15mg ER BID with [place] 7.5/325 1-1.5 tabs PRN q4-6 hours started [...] ?? 2. Suspected Aspiration PNA - Daughter (MORNING NEWS ANCHOR) found patient with large amount of material [...] had been managed by his PMD and SENIOR WEB DEVELOPER was on Morphine 15 mg po BID (daughter reported that in the past he was confused with Oxycontin),??[place] 7/325 mg 1 tab po q4-6 h; he is also on scheduled Gabapentin and prn Flexeril -and a recent admission to [facility] from 04/28-04/30 for severe lower [...] more alert. ? 6. H/o HTN - SENIOR WEB DEVELOPER on Metoprolol 50 mg po BID for HTN. - Holding now with bradycardia. Will follow. - monitor BP ? 7. Dyslipidemia - hold SENIOR WEB DEVELOPER Atorvastatin while he is npo ? 8 [...] monitoring in ICU overnight. Stephany Farley MD [phone] (P) Text page (7am to 6pm) Interval History Patient given ativan overnight and somnolent when patient's daughter present during day. Patient also noting headache throughout day. Head CT done without any acute findings. [place] with minimal improvement. Patient's mentation improved by [...] patient. KATIA DAVID MD Afsaneh Ceja APRN POULTRY BARN MANAGER - 05/07/2017 5:24 PM CDT ICU [...] Will cont to monitor. 05/07/2017 Marie Ritter INTRUSION ANALYST Milana Rodriguez MD - 05/06/2017 11:40 PM CDT Patient with intolerable pain on acetaminophen alone. I ordered gabapentin and low dose [place] (home meds). RN concerned about alcohol withdrawal, experiencing hallucinations. CIWA, banana bag and ativan prn ordered for alcohol withdrawal. Stephany Farley MD - 05/06/2017 7:[address] [facility] Hospitalist Progress Note Date of Service (when I saw the patient): 05/06/2017 Assessment & Plan Speedy Mcduffie is a 76 year old male who was brought in for evaluation of unresponsiveness. ?? 1. Altered mental status/Acute toxic encephalopathy Patient found by daughter (Raquel, MORNING NEWS ANCHOR) after likely prolonged period of unresponsiveness and suspected aspiration. Airway was cleared, but patient was hypoxic in the 60s for what sounds like at least 20-40 minutes before oxygen was available. Patient responded to narcan and thus it was suspected that patient had an unintentional opioid overdose with worsening of renal function and taking scheduled morphine 15mg ER BID with [place] 7.5/325 1-1.5 tabs PRN q4-6 hours started in the past week. Also had been taking gabapentin and flexeril. - Patient started on narcan drip initially and this has since been stopped. - Appreciate ash handler recommendations. Had initially planned to transfer to step down this afternoon, but patient having episodes of bradycardia in 40s - 50s, with one strip noting a rate of 29. These seem to happen when patient is sleeping and are sinus in nature. Interior Paneler agrees with keeping patient in the ICU [...] ?? 2. Suspected Aspiration PNA - Daughter (MORNING NEWS ANCHOR) found patient with large amount of material [...] had been managed by his PMD and SENIOR WEB DEVELOPER was on Morphine 15 mg po BID (daughter reported that in the past he was confused with Oxycontin), [place] 7/325 mg 1 tab po q4-6 h; he is also on scheduled Gabapentin and prn Flexeril -and a recent admission to [facility] from 04/28-04/30 for severe lower back pain when tapering Prednisone was added. On prednisone 10mg daily at time of event with plan for 2 more days 10mg and then 3 days 5mg daily. - Holding meds initially. Avoiding narcotics. Will consult PT when more alert. ?? 6. H/o HTN - SENIOR WEB DEVELOPER on Metoprolol 50 mg po BID for HTN. - Holding now with episodic bradycardia. Will follow. - monitor BP - Metoprolol iv prn ordered ?? 7. Dyslipidemia - hold SENIOR WEB DEVELOPER Atorvastatin while he is npo ?? 8 [...] hypoxia. PT consulted. ?? Stephany Farley MD [phone] (P) Text page (7am to 6pm) Interval [...] 76 yo male found unresponsive, [facility] of unitnentional overdose [...] in agreement with plan of care Yes [facility] TM 6 Clicks ?? 2016, Trustees of [facility], under license to [employer]. All rights reserved. 6 Clicks Short Forms Basic Mobility Inpatient Short Form [facility]??? 6 Clicks V.2 Basic Mobility Inpatient [...] 76 yo male found unresponsive, [facility] for ongoing treatment of unitnentional overdose [...] in agreement with plan of care Yes [facility] TM 6 Clicks ?? 2016, Trustees of [facility], under license to [employer]. All rights reserved. 6 Clicks Short Forms Basic Mobility Inpatient Short Form [facility]??? 6 Clicks V.2 Basic Mobility Inpatient Short [...] Total Evaluation Time (Minutes) 10 Marie Zuñiga HEALTH EDUCATION DIRECTOR - 05/06/2017 1:30 PM CDT 05/06/17 0959 [...] aspiration of his vomit. Clinical Swallow Eval: [place] Thick Liquid Texture Trial Mode of Presentation, [place] spoon;self-fed Volume of [place] Presented 3 teaspoons Oral Phase, [place] WFL Pharyngeal Phase, [place] intact Clinical Swallow Eval: Puree Solid Texture [...] Irvin MD - 05/06/2017 9:51 AM CDT [facility] Progress Note Date of Service: 05/06/2017 Assessment & Plan Speedy Mcduffie is a 76 year old male who was admitted on 05/05/2017 with altered mental status following a possible unintentional narcotic overdose. PHOTOGRAPHIC ENGINEER: Alert, appropriate, oriented this AM. - Altered [...] FEN/GI: Abdomen benign. - NPO for now. HEALTH EDUCATION DIRECTOR evaluation to assess swallow, consider starting diet [...] Today - Stop naloxone infusion. - PT, HEALTH EDUCATION DIRECTOR. - Possible transfer from ICU. Interval History [...] Mccullough MD - 05/05/2017 5:34 PM CDT [facility] History and Physical Hospitalist Date of Admission: [...] BID, more recently (last week) started on [place] 7.5/325 mg 1 tab po q4-6h prn - he is also on scheduled Gabapentin and Flexeril prn - his daughter- who is a MORNING NEWS ANCHOR does not think that he overdosed intentionally; [...] 141/81 - discussed with ICU attending; formal ash handler consult - continue BiPAP for now- wean [...] had been managed by his PMD and SENIOR WEB DEVELOPER was on Morphine 15 mg po BID (daughter reported that in the past he was confused with Oxycontin), [place] 7/325 mg 1 tab po q4-6 h; he is also on scheduled Gabapentin and prn Flexeril -and a recent admission to [facility] from 04/28-04/30 for severe lower back pain when tapering Prednisone was added - it seems that he was doing fine at home, walking with walker - now holding all narcotics, Gabapentin, Flexeril - may need to be seen by PT when he will be more awake 6. 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 History of Present Illness Speedy Mcduffie [...] time); more recently- he was started on [place] 7/325 mg 1 tab poq4-6 h; he is also on scheduled Gabapentin and prn Flexeril. He was recently admitted to [facility] from 04/28- 04/30/2017 for severe [...] called 911; [facility] As per report- he was given [...] vibration. His coordin ation is intact to [id number]. I did not his gait exam. Impression: [...] additional neurological questions. Arpita Nelson MD Document: [id number] REEDER\. Margaret Laguna MD - 05/08/2017 10:11 AM CDT [facility] Palliative Care Consultation Note Patient: Speedy Mcduffie [...] with any urgent needs. Margaret Laguna Pager: [phone] [facility] Inpatient Team Consult pager [phone] (M-F 8-4:30) After-hours Answering Service [phone] Palliative Clinic: [phone] Assessment Speedy Mcduffie is a 76 year old male with lower back pain 2/2 incomplete sacral fracture after a fall managed conservatively with opioids admitted 05/05 for suspected unintentional opioid overdose and aspiration. Course complicated by acute hypoxic respiratory failure, altered mental status, acute on CKD. Symptoms: Pain: didn't tolerate opioids throughout his treatment course (a little over a week SENIOR WEB DEVELOPER): felt somnolent. He doesn't recall making changes [...] done rapidly if he hasn't taken it SENIOR WEB DEVELOPER. Lidocaine patches didn't help in the past. Gets good relief with heat and ice, using heating pad now. I feel a trial of low-dose diclofenac with monitoring of his renal function would be a good option at this time. He is already on misoprostol SENIOR WEB DEVELOPER, which I assume was started with the [...] sleep last night, also received one 5/325 [place] about 90min prior to my visit. ROS: [...] magnesia daily prn, Senna-docusate prn - none SENIOR WEB DEVELOPER: MS Contine 15mg bid Hydrocodone/APAP 7.5/325 1-1.5 [...] reviewed: crea 1.24 (baseline) Margaret Laguna Pager: [phone] [facility] Inpatient Team Consult pager [phone] (M-F 8-4:30) After-hours Answering Service [phone] Palliative Clinic: [phone] Total time spent was 45 minutes, >50% of time was spent counseling and/or coordination of care regarding symptom assessment, disease understanding. Rolando Burrell MD - 05/07/2017 11:00 AM CDT [facility] Cardiology Consultation Date of Admission: 05/05/2017 Rolando [...] HDL, LDL, TRIG, CHOLHDLRATIO in the last 80570 hours. Recent Labs Lab 05/07/17 0450 05/06/17 [...] 9:21 AM CDTAssociated Order(s): CARDIOLOGY IP CONSULT [facility] Cardiology Consultation Date of Admission: 05/05/2017 Date [...] - 3 beers/day, question withdrawal symptoms (on [facility] protocol) 2) Sinus Pause - This AM few episodes of sinus pauses (2.5 - 3 seconds) 2) Altered Mental Status - [place] to be due to incidental opioid overdose [...] opioid therapy. He had recent admission to [facility] between 711 and 713 for severe back [...] Sinus Bradycardia Kamari Jones PA-C 05/07/2017 Pager: [phone] Associated attestation - Hue Klein MD - [...] Irvin MD - 05/05/2017 6:24 PM CDT [facility] History and Physical/ Consult Critical Care Service Date of Admission: 05/05/2017 Date of Service: 05/05/17 Assessment & Plan Edjenniffer Mcduffie is a 76 year old male who presents with altered mental status. 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 - EDJA: ?CKD background, as creatinine from Care Everywhere [...] was airlifted to the emergency department at [facility]. Naloxone administered during transport improved his mental status transiently. The patient has a recent sacral fracture which has caused some yigvgmocl-ij-fvcgzid pain. Past Medical History I have reviewed [...] HARDWARE FOOT; hardware removel left foot; Surgeon: aSl Chaparro DPM; Location: [facility] OR ??? THORACIC [...] NEG Ketones Urine Negative NEG mg/dL Specific [place]clure Urine 1.020 1.003 - 1.035 Blood Urine [...] - 05/05/2017 4:11 PM CDT at bedside- [facility], to discuss results with family. Aubrey Bautista [...] patient was brought by ambulance to a [facility] helicopter and then to the emergency department for evaluation because his other daughter is nurse in the ICU at [facility]. He was not brought to [place] for evaluation because he was initially unresponsive. [...] Remove hardware foot Left lung surgical decortication [place] teeth Family History: History reviewed. No pertinent [...] wave abnormality Abnormal ECG Rate 79 bpm. MO interval 138. QRS duration 76. QT/QTc 376/431. [...] 05/05/2017 EMERGENCY DEPARTMENT Leesa Martinez MD 05/05/17 [id number] documented in this encounter Miscellaneous Notes Provider Notification - Aubrey Morales RN - 05/12/2017 3:42 PM CDT Paged and spoke to Dr. Pleitez notified pharmacist from [facility] called with concern with counter indications with the d/c med sent. Supervisor Special Education given phone number to Dr. Pleitez, she will contact pharmacy to verify. Phone number [phone] Plan of Care - Nai Santacruz, ALISHA - 05/12/2017 3:42 PM CDT Problem: Goal Outcome Summary Goal: Goal Outcome Summary Physical Therapy Discharge Summary Reason for therapy discharge: Discharged to home with home therapy. Progress towards therapy goal(s). See goals on Care Plan in [facility] electronic health record for goal details. [...] See goals on Care Plan in [facility] electronic health record for goal details. [...] Goal Outcome Summary Goal: Goal Outcome Summary Senior Licensing Manager PT Patient plan for discharge: Home with [...] Goal Outcome Summary Goal: Goal Outcome Summary Senior Licensing Manager PT Patient plan for discharge: None stated [...] PM Plan of Care - Marie Zuñiga HEALTH EDUCATION DIRECTOR - 05/11/2017 10:13 AM CDT Problem: Goal Outcome Summary Goal: Goal Outcome Summary Senior Licensing Manager HEALTH EDUCATION DIRECTOR Patient plan for discharge: Patient would like [...] pt for OT session, pt busy with HEALTH EDUCATION DIRECTOR and eating breakfast on 1st attempt, 2nd [...] and then 379cc at 1210 and 476cc [id number]. D/c pending, currently recommending TCU. Nrsg will continue to monitor. Plan of Care - Marie Zuñiga SLP - 05/10/2017 1:50 PM CDT Problem: Goal Outcome Summary Goal: Goal Outcome Summary Senior Licensing Manager HEALTH EDUCATION DIRECTOR Patient plan for discharge: Patient would like [...] declines/aspiration signs are observed. Plan to continue HEALTH EDUCATION DIRECTOR swallow Tx For one mores session to [...] Goal Outcome Summary Goal: Goal Outcome Summary Senior Licensing Manager PT Patient plan for discharge: Pt hopes [...] Goal Outcome Summary Goal: Goal Outcome Summary Senior Licensing Manager OT Patient plan for discharge: home with [...] Outcome: Improving Altered mental status. PT, OT, HEALTH EDUCATION DIRECTOR. A/Ox4, forgetful, acute confusion episodes upon waking [...] Goal Outcome Summary Goal: Goal Outcome Summary Senior Licensing Manager HEALTH EDUCATION DIRECTOR Patient plan for discharge: Did not state [...] declines/aspiration signs are observed. Plan to continue HEALTH EDUCATION DIRECTOR swallow Tx short term to insure diet tolerance and train strategies. Barriers to return to prior living situation: Level of assist per OT/PT needs Recommendations for discharge: Per OT/PT needs; No HEALTH EDUCATION DIRECTOR needs likely indicated after discharge Rationale for recommendations: Anticipate HEALTH EDUCATION DIRECTOR swallow Tx goal to be be met [...] Goal Outcome Summary Goal: Goal Outcome Summary HEALTH EDUCATION DIRECTOR: Attempted to see patient at breakfast for [...] Pt had assist with dressing, and IADLs. Senior Licensing Manager OT Patient plan for discharge: Home with [...] 05/08/2017 11:15 PM CDT Page to MD sales representative consultant, pt still tachy in high 115-150s - occasionally will drop below 100 but then tachycardia resumes. Given all PRN options. Orders for meds rec'd/updated in DEC. 0030 Bedside RN went togive meds and HR slowed, sustained into 70's long enough to capture strip. Tele strip printed by this policy writer sales, pt appears to be in a-flutter. Sent to CCU to verify. 0045 Re-page to MD sales representative consultant regarding underlying rhythm. STAT 12 lead ordered. [...] to hospitalist, PRN Metoprolol ordered and given. Supervisor Special Education also instructed to give scheduled BP meds. [...] Goal Outcome Summary Goal: Goal Outcome Summary Senior Licensing Manager HEALTH EDUCATION DIRECTOR Patient plan for discharge: Did not state [...] continue to monitor. Plan of Care - aDsha Powell RN - 05/07/2017 10:48 PM CDT [...] day without symptoms, bp high apresoline iv [id number] without much improvement. notified at 1300 hospitalist [...] life. Hosptalist ordered to give low dose [place] and stat head CT. Notified primary nurse. Plan of Care - Kassy Chatman SLP - 05/07/2017 2:50 PM CDT Problem: Goal Outcome Summary Goal: Goal Outcome Summary Senior Licensing Manager HEALTH EDUCATION DIRECTOR Patient plan for discharge: Did not state [...] Goal Outcome Summary Goal: Goal Outcome Summary HEALTH EDUCATION DIRECTOR: Attempted to see patient for swallow treatment [...] metoprolol per prn order after discussing with ash handler. Pt then had periods of tachy/dani. See [...] Goal Outcome Summary Goal: Goal Outcome Summary Senior Licensing Manager PT PT: Evaluation completed, treatment initiated. 76 [...] Goal Outcome Summary Goal: Goal Outcome Summary Senior Licensing Manager HEALTH EDUCATION DIRECTOR Patient plan for discharge: Undetermined Current status: [...] his respiratory status hold the diet. 3. HEALTH EDUCATION DIRECTOR will f/u for diet tolerance on 05/07/17. [...] intermittently to vigorous sternal rub. MD chávez, ash handler consult. [place] reassess at 1999 for intubation. CV: SR, pressure stable. Pulm: LS coarse, BIPAP. GI/: Abd distended. Adequate clear urine output. Skin: intact Lines: 2 periph iv Plan: plan to reassess arousal level and ABG at 1999 Pharmacy-Admission Medication History - Victoriano Villa RPH - 05/05/2017 4:44 PM CDT Admission medication history interview status for the 05/05/2017 admission is complete. See [facility] admission navigator for prior to admission medications Medication history source reliability:Good Actions taken by pharmacist (provider contacted, etc):None Additional medication history information not noted on SENIOR WEB DEVELOPER med list : ----Pt unresponsive. Medication bottles [...] with Referral Routine Paroxysmal atrial Expected : Furniture Mover Helper fibrillation (H) 05/20 (Approximate), Expires: 05/11/2018 Home Care PT Referral for Referral Routine Enceph alopathy Ordered: Hospital Discharge Aspiration pneumonia, 05/12/2017 unspecified aspiration pneumonia type, unspecified laterality, unspecified part of lung (H) Home Care OT Referral for Referral Routine Enceph alopathy Ordered: Hospital Discharge Aspiration pneumonia, 05/12/2017 unspecified aspiration pneumonia type, unspecified laterality, unspecified part of lung (H) Home Care HEALTH EDUCATION DIRECTOR Referral for Referral Routine Encep halopathy Ordered: [...] Time Signature Sodium 144 133 - 144 [place] mmol/L [facility] Potassium 4.0 3.4 - 5.3 [place] mmol/L [facility] Chloride 112 (H) 94 - 109 [place] mmol/L [facility] Carbon Dioxide 22 20 - 32 [place] mmol/L [facility] Anion Gap 10 3 - 14 [place] mmol/L [facility] Glucose 111 (H) 70 - 99 [place] mg/dL [facility] Urea Nitrogen 25 7 - 30 [place] mg/dL [facility] Creatinine 1.55 (H) 0.66 - [place] 1.25 mg/dL [facility] GFR Estimate 44 (L) >60 [place] mL/min/1.[address] Comment: Non GFR Calc GFR Estimate If Black 53 (L) >60 mL/min/1.7m2 F [facility] Comment: GFR Calc Calcium 8.1 (L) 8.5 - 10.1 mg/dL [facility] Specimen Anatomical Collection Method Collection Time Receive d Time (Source) Location / / Volume Laterality Blood specimen 05/12/2017 8:52 AM 017 9:02 (specimen) CDT AM CDT Nikhil Rodriguez DO LAB - BLOOD ORDERABLES Performing Organization Address City/State/ZIP Code Phon e Number [facility] [address] [address] [facility] [address] [address], [place] [phone] Hemoglobin A1c (05/11/2017 11:37 AM CDT) athologist Signature Hemoglobin A1C 5.6 4.3 - 6.0 [facility] Specimen Anatomical Collection Method Collection Time Receive d Time (Source) Location / / Volume Laterality Blood specimen 05/11/2017 11:37 7 (specimen) AM CDT 11:57 AM CDT Natasha Jen Counters [facility] CENTER WORKER POULTRY BARN MANAGER LAB - BLOOD ORDERABLES Performing Organization Address City/State/ZIP Code Phon e Number [facility] [address] [place] [address] [facility] [address] [place] [address], [place] [phone] Vitamin B12 (05/11/2017 11:37 AM CDT) athologist Signature Vitamin B12 800 193 - 986 [facility] pg/mL [facility] Specimen Anatomical Collection Method Collection Time Receive d Time (Source) Location / / Volume Laterality Blood specimen 05/11/2017 11:37 7 (specimen) AM CDT 11:57 AM CDT Natasha Jen Counters COMMUNITY CENTER WORKER POULTRY BARN MANAGER LAB - BLOOD ORDERABLES Performing Organization Address City/State/ZIP Code Phon e Number [facility] [address] [place] [address] [facility] Vitamin D Deficiency (05/11/2017 11:37 AM CDT) athologist Signature Vitamin D 26 20 - 75 [facility] Deficiency ug/L [facility] Comment: Season, race, dietary intake, and treatm ent affect the concentration of 52-qteimkn-Cvrosqz D. Values may decrea se during winter [...] CDT 11:57 AM CDT Natasha Jen Counters COMMUNITY CENTER WORKER POULTRY BARN MANAGER LAB - BLOOD ORDERABLES Performing Organization Address City/State/ZIP Code Phon e Number [facility] [address] [place] [address] [facility] (ABNORMAL) Lipid Profile (05/11/2017 11:37 AM CDT) P athologist Signature Cholesterol 128 <200 mg/dL [facility] Triglycerides 164 (H) <150 mg/dL [facility] Comment: Borderline high: ??150-199 mg/dl High: ? 200-499 mg/dl Very high: ? >499 mg/dl HDL Cholesterol 44 >39 mg/dL [facility] LDL Cholesterol Calculated 51 <100 mg/dL [facility] Comment: Desirable: <100 mg/dl Non HDL Cholesterol 84 <130 mg/dL [facility] Specimen Anatomical Collection Method Collection Time Receive d Time (Source) Location / / Volume Laterality Blood specimen 05/11/2017 11:37 7 (specimen) AM CDT 11:57 AM CDT Natasha Li Counters TERESITA ZIEGLER LAB - BLOOD ORDERABLES Performing Organization Address City/State/ZIP Code Phon e Number [facility] [address] [address] [phone] [facility] [address] [address], [facility] [phone] Platelet count (05/11/2017 7:17 AM CDT) P athologist Signature Platelet Count 169 150 - 450 [place] 10e9/L [facility] Specimen Anatomical Collection Method Collection Time Receive d Time (Source) Location / / Volume Laterality Blood specimen 05/11/2017 7:17 AM 017 7:30 (specimen) CDT AM CDT Stephany Farley MD LAB - BLOOD ORDERABLES Performing Organization Address City/State/ZIP Code Phon e Number [facility] [address] [address] [facility] [address] [place] [address], [place] [phone] (ABNORMAL) Basic metabolic panel (05/11/2017 7:17 AM CDT) Analysis Performed At [facility] logist Time Signature Sodium 144 133 - 144 [place] mmol/L [facility] Potassium 3.7 3.4 - 5.3 [place] mmol/L [facility] Chloride 112 (H) 94 - 109 [place] mmol/L [facility] Carbon Dioxide 23 20 - 32 [place] mmol/L [facility] Anion Gap 9 3 - 14 [place] mmol/L [facility] Glucose 94 70 - 99 [place] mg/dL [facility] Urea Nitrogen 25 7 - 30 [place] mg/dL [facility] Creatinine 1.56 (H) 0.66 - [place] 1.25 mg/dL [facility] GFR Estimate 44 (L) >60 [place] mL/min/1.[address] Comment: Non GFR Calc GFR Estimate If Black 53 (L) >60 mL/min/1.7m2 F [facility] Comment: GFR Calc Calcium 8.5 8.5 - 10.1 mg/dL [facility] Specimen Anatomical Collection Method Collection Time Receive d Time (Source) Location / / Volume Laterality Blood specimen 05/11/2017 7:17 AM 017 7:30 (specimen) CDT AM CDT Isra Greene MD LAB - BLOOD ORDERABLES Performing Organization Address City/State/ZIP Code Phon e Number [facility] [address] [address] [facility] [address] [address], [place] [phone] (ABNORMAL) CBC with platelets differential (05/10/2017 7:43 AM CDT) [facility] gist Method Time Signature WBC 7.7 4.0 - [facility] 11.0 [facility] 10e9/L [facility] RBC Count 3.89 (L) 4.4 - 5.9 [place] 10e12/L [facility] Hemoglobin 12.7 (L) 13.3 - [place] 17.7 g/dL [facility] Hematocrit 37.0 (L) 40.0 - [place] 53.0 % [facility] MCV 95 78 - 100 [place] fl [facility] MCH 32.6 26.5 - [place] 33.0 pg [facility] MCHC 34.3 31.5 - [place] 36.5 g/dL [facility] RDW 13.3 10.0 - [place] 15.0 % [facility] Platelet Count 168 150 - [address] Diff Method Automated [place] Method [facility] % Neutrophils 68.9 % [facility] % Lymphocytes 17.9 % [facility] % Monocytes 9.7 % [facility] % Eosinophils 2.6 % [facility] % Basophils 0.3 % [facility] % Immature 0.6 % [place] Granulocytes [facility] Nucleated RBCs 0 0 /100 [facility] Absolute 5.3 1.6 - 8.3 [place] Neutrophil 10e9/L [facility] Absolute 1.4 0.8 - 5.3 [place] Lymphocytes 10e9/[facility] Absolute 0.8 0.0 - 1.3 [place] Monocytes 10e9/[facility] Absolute 0.2 0.0 - 0.7 [place] Eosinophils 10e9/L [facility] Absolute 0.0 0.0 - 0.2 [place] Basophils 10e9/[facility] Abs Immature 0.1 0 - 0.[address] [place] [address] [place] [address] Absolute 0.0 [place] Nucleated RBC [facility] Specimen Anatomical Collection Method Collection Time Receive d Time (Source) Location / / Volume Laterality Blood specimen 05/10/2017 7:43 AM 017 8:05 (specimen) CDT AM CDT Isra Greene MD LAB - BLOOD ORDERABLES Performing Organization Address City/State/ZIP Code Phon e Number [facility] [address] [address] [phone] [facility] [address] [address], [place] [phone] (ABNORMAL) Basic metabolic panel (05/10/2017 7:43 AM CDT) Analysis Performed At Patho logist Time Signature Sodium 144 133 - 144 [place] mmol/L [facility] Potassium 3.5 3.4 - 5.3 [place] mmol/L [facility] Chloride 111 (H) 94 - 109 [place] mmol/L [facility] Carbon Dioxide 23 20 - 32 [place] mmol/L [facility] Anion Gap 10 3 - 14 [place] mmol/L [facility] Glucose 97 70 - 99 [place] mg/dL [facility] Urea Nitrogen 24 7 - 30 [place] mg/dL [facility] Creatinine 1.49 (H) 0.66 - [place] 1.25 mg/dL [facility] GFR Estimate 46 (L) >60 [place] mL/min/1.[address] Comment: Non GFR Calc GFR Estimate If Black 56 (L) >60 mL/min/1.7m2 F [facility] Comment: GFR Calc Calcium 8.6 8.5 - 10.1 mg/dL [facility] Specimen Anatomical Collection Method Collection Time Receive d Time (Source) Location / / Volume Laterality Blood specimen 05/10/2017 7:43 AM 017 8:05 (specimen) CDT AM CDT Isra Greene MD LAB - BLOOD ORDERABLES Performing Organization Address City/State/ZIP Code Phon e Number [facility] [address] [place] [address] [phone] [facility] [address] [place] [address], U [phone] MR Brain w/o & w Contrast (05/09/2017 [...] with platelets differential (05/09/2017 7:27 AM CDT) [facility] Method Time Signature WBC 9.5 4.0 - [facility] 11.0 [facility] RBC Count 3.94 (L) 4.4 - 5.9 [place] 10e12/L [facility] Hemoglobin 12.9 (L) 13.3 - [facility] 17.7 g/dL [facility] Hematocrit 37.0 (L) 40.0 - [place] 53.0 % [facility] MCV 94 78 - 100 [place] fl [facility] MCH 32.7 26.5 - [place] 33.0 pg [facility] MCHC 34.9 31.5 - [place] 36.5 g/dL [facility] RDW 13.1 10.0 - [place] 15.0 % [facility] Platelet Count 185 150 - [address] Diff Method Automated [place] Method [facility] % Neutrophils 74.3 % [facility] % Lymphocytes 13.7 % [facility] % Monocytes 9.3 % [facility] % Eosinophils 2.2 % [facility] % Basophils 0.1 % [facility] % Immature 0.4 % [place] Granulocytes [facility] Nucleated RBCs 0 0 /100 [facility] Absolute 7.1 1.6 - 8.3 [place] Neutrophil 10e9/L [facility] Absolute 1.3 0.8 - 5.3 [place] Lymphocytes 10e9/[facility] Absolute 0.9 0.0 - 1.3 [place] Monocytes 10e9/L [facility] Absolute 0.2 0.0 - 0.7 [place] Eosinophils 10e9/[facility] Absolute 0.0 0.0 - 0.2 [place] Basophils 10e9/[facility] Abs Immature 0.0 0 - 0.4 [place] Granulocytes [facility] Absolute 0.0 [place] Nucleated RBC [facility] Specimen Anatomical Collection Method Collection Time Receive d Time (Source) Location / / Volume Laterality Blood specimen 05/09/2017 7:27 AM 017 7:40 (specimen) CDT AM CDT Stephany Farley MD LAB - BLOOD ORDERABLES Performing Organization Address City/State/ZIP Code Phon e Number M [facility] [address] [place] [address] [facility] [address] [address], [place] [phone] (ABNORMAL) Basic metabolic panel (05/09/2017 7:27 AM CDT) Analysis Performed At [facility] Time Signature Sodium 142 133 - 144 [place] mmol/L [facility] Potassium 3.5 3.4 - 5.3 [place] mmol/L [facility] Chloride 110 (H) 94 - 109 [place] mmol/L [facility] Carbon Dioxide 21 20 - 32 [place] mmol/L [facility] Anion Gap 11 3 - 14 [place] mmol/L [facility] Glucose 105 (H) 70 - 99 [place] mg/dL [facility] Urea Nitrogen 22 7 - 30 [place] mg/dL [facility] Creatinine 1.44 (H) 0.66 - [place] 1.25 mg/dL [facility] GFR Estimate 48 (L) >60 [place] mL/min/1.[address] Comment: Non GFR Calc GFR Estimate If Black 58 (L) >60 mL/min/1.7m2 F [facility] Comment: GFR Calc Calcium 9.1 8.5 - 10.1 mg/dL [facility] Specimen Anatomical Collection Method Collection Time Receive d Time (Source) Location / / Volume Laterality Blood specimen 05/09/2017 7:27 AM 017 7:40 (specimen) CDT AM CDT Stephany Farley MD LAB - BLOOD ORDERABLES Performing Organization Address City/State/ZIP Code Phon e Number [facility] [address] [address] [facility] [address] [address], [place] [phone] EKG 12-lead, tracing only (05/09/2017 12:59 AM CDT) Patholo gist Method Time Signature Interpretation ECG Click View RADIOLOGY Image link RESULTS to view waveform and result Specimen (Source) Anatomical Collection Method Collection Time Re ceived Time Location / / Volume Laterality 05/09/2017 12:59 AM CDT Mickey Smith MD ECG ORDERABLES Performing Organization Address City/[facility]/ZIP Code Phon e Number RADIOLOGY RESULTS EKG 12-lead, tracing only (05/08/2017 9:00 PM CDT) Patholo gist Method Time Signature Interpretation ECG Click View RADIOLOGY Image link RESULTS to view waveform and result Specimen (Source) Anatomical Collection Method Collection Time Re ceived Time Location / / Volume Laterality 05/08/2017 9:00 PM CDT Stephany Farley MD ECG ORDERABLES Performing Organization Address City/[facility]/ZIP Code Phon e Number RADIOLOGY RESULTS Lactic acid level STAT (05/08/2017 8:45 PM CDT) P athologist Signature Lactic Acid 1.3 0.7 - 2.1 [place] mmol/L [facility] Specimen Anatomical Collection Method Collection Time Receive d Time (Source) Location / / Volume Laterality Blood specimen 05/08/2017 8:45 PM 017 8:58 (specimen) CDT PM CDT Stephany Farley MD LAB - BLOOD ORDERABLES Performing Organization Address [facility] Phon e Number [facility] [address] [address] [phone] [facility] [address] [address], [place] [phone] (ABNORMAL) N-terminal Pro BNP Inpatient (AM Draw) (05/08/2017 5:00 AM CDT) Analysis Performed At Patho logist Time Signature N-Terminal Pro 2,947 (H) 0 - 900 [place] BNP Inpatient pg/mL [facility] [...] e Number [facility] [address] [address] [phone] [facility] [address] [address], [facility] [phone] (ABNORMAL) CBC with platelets differential (05/08/2017 5:00 AM CDT) [facility] gist Method Time Signature WBC 12.7 (H) 4.0 - [place] 11.0 [facility] 10e9/L [facility] RBC Count 4.00 (L) 4.4 - 5.9 [place] 10e12/L [facility] Hemoglobin 13.0 (L) 13.3 - [place] 17.7 g/dL [facility] Hematocrit 38.3 (L) 40.0 - [place] 53.0 % [facility] MCV 96 78 - 100 [facility] MCH 32.5 26.5 - [place] 33.0 pg [facility] MCHC 33.9 31.5 - [place] 36.5 g/dL [facility] RDW 13.1 10.0 - [place] 15.0 % [facility] Platelet Count 162 150 - 450 [place] 10e9/L [facility] Diff Method Automated [facility] % Neutrophils 82.5 % [facility] % Lymphocytes 8.9 % [facility] % Monocytes 6.9 % [facility] % Eosinophils 1.2 % [facility] % Basophils 0.1 % [facility] % Immature 0.4 % [place] Granulocytes [facility] Nucleated RBCs 0 0 /100 [facility] Absolute 10.5 (H) 1.6 - 8.3 [place] Neutrophil 10e9/L [facility] Absolute 1.1 0.8 - 5.3 [place] Lymphocytes 10e9/L [facility] Absolute 0.9 0.0 - 1.3 [place] Monocytes 10e9/L [facility] Absolute 0.2 0.0 - 0.7 [place] Eosinophils 10e9/L [facility] Absolute 0.0 0.0 - 0.2 [place] Basophils 10e9/L [facility] Abs Immature 0.1 0 - 0.4 [place] Granulocytes 10e9/L [facility] Absolute 0.0 [place] Nucleated RBC [facility] Specimen Anatomical Collection Method Collection Time Receive d Time (Source) Location / / Volume Laterality Blood specimen 05/08/2017 5:00 AM 017 5:06 (specimen) CDT AM CDT Stephany Farley MD LAB - BLOOD ORDERABLES Performing Organization Address City/State/ZIP Code Phon e Number [facility] [address] [address] [phone] [facility] [address] [address], [facility] [phone] (ABNORMAL) Basic metabolic panel (05/08/2017 5:00 AM CDT) athologist Signature Sodium 140 133 - 144 [place] mmol/L [facility] Potassium 4.1 3.4 - 5.3 [place] mmol/L [facility] Chloride 109 94 - 109 [place] mmol/L [facility] Carbon Dioxide 20 20 - 32 [place] mmol/L [facility] Anion Gap 11 3 - 14 [place] mmol/L [facility] Glucose 106 (H) 70 - 99 [place] mg/dL [facility] Urea Nitrogen 19 7 - 30 [place] mg/dL [facility] Creatinine 1.24 0.66 - [place] 1.25 mg/dL [facility] GFR Estimate 57 (L) >60 [place] mL/min/1.[address] Comment: Non GFR Calc GFR Estimate If Black 69 >60 mL/min/1.7m2 F [facility] Comment: GFR Calc Calcium 8.8 8.5 - 10.1 mg/dL [facility] Specimen Anatomical Collection Method Collection Time Receive d Time (Source) Location / / Volume Laterality Blood specimen 05/08/2017 5:00 AM 017 5:06 (specimen) CDT AM CDT Stephany Farley MD LAB - BLOOD ORDERABLES Performing Organization Address City/State/ZIP Code Phon e Number [facility] [address] [address] [facility] [address] [place] [address], [place] [phone] CT Head w/o Contrast (05/07/2017 5:04 PM [...] 4:25 CDT PM CDT Miladys Mccullough MD [facility] POCT Performing Organization Address City/State/ZIP Code Phon e Number FV POINT OF CARE TEST, GLUCOSE POINT OF CARE TEST, GLUCOSE ECHO COMPLETE WITH OPTISON (05/07/2017 11:36 AM CDT) Anatomical Region Laterality Modality Echocardiography Specimen (Source) Anatomical Collection Method Collection Time Re ceived Time Location / / Volume Laterality 05/07/2017 10:53 AM CDT Narrative 05/07/2017 1:17 PM CDT [id number]^RUSTY^KAMARI^ [facility] [address] [place] [address] Name: SPEEDY MCDUFFIE : 1940 Study Date: [...] note might be different from the original. [id number]^RUSTY^KAMARI^ [facility] [address] [place] [address] Name: SPEEDY MCDUFFIE : 1940 Study Date: [...] (05/07/2017 4:50 AM CDT) Analysis Performed At [facility] Time Signature Bilirubin Direct 0.2 0.0 - 0.2 [place] mg/dL [facility] Bilirubin Total 0.5 0.2 - 1.3 [place] mg/dL [facility] Albumin 2.6 (L) 3.4 - 5.0 [place] g/dL [facility] Protein Total 6.2 (L) 6.8 - 8.8 [place] g/dL [facility] Alkaline 156 (H) 40 - 150 [place] Phosphatase U/L [facility] ALT 34 0 - 70 U/L [facility] AST 46 (H) 0 - 45 U/L [facility] Specimen Anatomical Collection Method Collection Time Receive d Time (Source) Location / / Volume Laterality Blood specimen 05/07/2017 4:50 AM 017 4:55 (specimen) CDT AM CDT Stephany Farley MD LAB - BLOOD ORDERABLES Performing Organization Address City/State/ZIP Code Phon e Number [facility] [address] [address] [facility] [address] [address], U [phone] (ABNORMAL) Basic metabolic panel (05/07/2017 4:50 AM CDT) Analysis Performed At [facility] Signature Sodium 143 133 - 144 [place] mmol/L [facility] Potassium 4.8 3.4 - 5.3 [place] mmol/L [facility] Chloride 114 (H) 94 - 109 [place] mmol/L [facility] Carbon Dioxide 20 20 - 32 [place] mmol/L [facility] Anion Gap 9 3 - 14 [place] mmol/L [facility] Glucose 130 (H) 70 - 99 [place] mg/dL [facility] Urea Nitrogen 25 7 - 30 [place] mg/dL [facility] Creatinine 1.52 (H) 0.66 - [place] 1.25 mg/dL [facility] GFR Estimate 45 (L) >60 [place] mL/min/1.[address] Comment: Non GFR Calc GFR Estimate If Black 54 (L) >60 mL/min/1.7m2 F [facility] Comment: GFR Calc Calcium 8.8 8.5 - 10.1 mg/dL [facility] Specimen Anatomical Collection Method Collection Time Receive d Time (Source) Location / / Volume Laterality Blood specimen 05/07/2017 4:50 AM 017 4:55 (specimen) CDT AM CDT Setphany Farley MD LAB - BLOOD ORDERABLES Performing Organization Address City/State/ZIP Code Phon e Number [facility] [address] [address] [facility] [address] [address], [facility] [phone] Magnesium (05/07/2017 4:50 AM CDT) P athologist Signature Magnesium 2.3 1.6 - 2.3 [place] mg/dL [facility] Specimen Anatomical Collection Method Collection Time Receive d Time (Source) Location / / Volume Laterality Blood specimen 05/07/2017 4:50 AM 017 4:55 (specimen) CDT AM CDT Stephany Farley MD LAB - BLOOD ORDERABLES Performing Organization Address City/State/ZIP Code Phon e Number [facility] [address] [address] [phone] [place] [address] [place] [address], [place] [phone] Phosphorus (05/07/2017 4:50 AM CDT) P athologist Signature Phosphorus 3.3 2.5 - 4.5 [place] mg/dL [facility] Specimen Anatomical Collection Method Collection Time Receive d Time (Source) Location / / Volume Laterality Blood specimen 05/07/2017 4:50 AM 017 4:55 (specimen) CDT AM CDT Stephany Farley MD LAB - BLOOD ORDERABLES Performing Organization Address City/State/ZIP Code Phon e Number [facility] [address] [place] [address] [facility] [address] [place] [address], [place] [phone] (ABNORMAL) CBC with platelets differential (05/07/2017 4:50 AM CDT) Component Value Ref Test Analysis Performed At Patholo gist Range Method Time Signature WBC 11.9 (H) 4.0 - [place] 11.0 [facility] 10e9/L [facility] RBC Count 3.79 (L) 4.4 - [place] 5.9 [facility] 10e12/L [facility] Hemoglobin 12.5 (L) 13.3 - [place] 17.7 [facility] g/dL [facility] Hematocrit 37.5 (L) 40.0 - [place] 53.0 % [facility] MCV 99 78 - 100 [place] fl [facility] MCH 33.0 26.5 - [place] 33.0 pg [facility] MCHC 33.3 31.5 - [place] 36.5 [facility] g/dL [facility] RDW 13.5 10.0 - [place] 15.0 % [facility] Platelet Count 150 150 - [place] 450 [facility] 10e9/L [facility] Diff Method Manual [place] Differential [facility] % Neutrophils 92.0 % [facility] % Lymphocytes 3.0 % [facility] % Monocytes 5.0 % [facility] % Eosinophils 0.0 % [facility] % Basophils 0.0 % [facility] Absolute 10.9 (H) 1.6 - [place] Neutrophil [address] Absolute 0.4 (L) 0.8 - [place] Lymphocytes 5.[address] Absolute 0.6 0.0 - [place] Monocytes 1.3 [facility] 10e9[facility] Absolute 0.0 0.0 - [place] Eosinophils 0.[address] Absolute 0.0 0.0 - [place] Basophils 0.[address] RBC Morphology Normal [facility] Platelet Confirming [place] Estimate automated cell [facility] Specimen Anatomical Collection Method Collection Time Receive d Time (Source) Location / / Volume Laterality Blood specimen 05/07/2017 4:50 AM 017 4:55 (specimen) CDT AM CDT Stephany Farley MD LAB - BLOOD ORDERABLES Performing Organization Address City/State/ZIP Code Phon e Number [facility] [address] [place] [address] [facility] [address] [place] [address], [place] [phone] Calcium (05/06/2017 5:18 PM CDT) P athologist Signature Calcium 8.6 8.5 - 10.1 [place] mg/dL [facility] Specimen Anatomical Collection Method Collection Time Receive d Time (Source) Location / / Volume Laterality Blood specimen 05/06/2017 5:18 PM 017 5:23 (specimen) CDT PM CDT Jaswinder Goins MD LAB - BLOOD ORDERABLES Performing Organization Address City/State/ZIP Code Phon e Number [facility] [address] [place] [address] [facility] [address] [place] [address], [place] [phone] Magnesium (1200) (05/06/2017 5:18 PM CDT) P athologist Signature Magnesium 1.9 1.6 - 2.3 [place] mg/dL [facility] Specimen Anatomical Collection Method Collection Time Receive d Time (Source) Location / / Volume Laterality Blood specimen 05/06/2017 5:18 PM 017 5:23 (specimen) CDT PM CDT Jaswinder Goins MD LAB - BLOOD ORDERABLES Performing Organization Address City/State/ZIP Code Phon e Number [facility] [address] [place] [address] [facility] [address] [place] [address], [place] [phone] EKG 12-lead, tracing only (05/06/2017 5:08 PM CDT) Patholo gist Method Time Signature Interpretation ECG Click View RADIOLOGY Image link RESULTS to view waveform and result Specimen (Source) Anatomical Collection Method Collection Time Re ceived Time Location / / Volume Laterality 05/06/2017 5:08 PM CDT Jaswinder Goins MD ECG ORDERABLES Performing Organization Address City/[facility]/ZIP Code Phon e Number RADIOLOGY RESULTS (ABNORMAL) CBC with platelets (05/06/2017 4:45 AM CDT) [facility] Time Signature WBC 14.4 (H) 4.0 - 11.0 [place] 10e9/L [facility] RBC Count 3.85 (L) 4.4 - 5.9 [place] 10e12/L [facility] Hemoglobin 12.5 (L) 13.3 - [place] 17.7 g/dL [facility] Hematocrit 38.3 (L) 40.0 - [place] 53.0 % [facility] MCV 100 78 - 100 [place] fl [facility] MCH 32.5 26.5 - [place] 33.0 pg [facility] MCHC 32.6 31.5 - [place] 36.5 g/dL [facility] RDW 13.3 10.0 - [place] 15.0 % [facility] Platelet Count 135 (L) 150 - 450 [place] 10e9/L [facility] Specimen Anatomical Collection Method Collection Time Receive d Time (Source) Location / / Volume Laterality Blood specimen 05/06/2017 4:45 AM 017 4:54 (specimen) CDT AM CDT Miladys Mccullough MD LAB - BLOOD ORDERABLES Performing Organization Address City/State/ZIP Code Phon e Number [facility] [address] [address] [facility] [address] [place] [address], [place] [phone] (ABNORMAL) Hepatic panel (05/06/2017 4:45 AM CDT) Analysis Performed At [facility] Time Signature Bilirubin Direct 0.2 0.0 - 0.2 [place] mg/dL [facility] Bilirubin Total 0.6 0.2 - 1.3 [place] mg/dL [facility] Albumin 2.6 (L) 3.4 - 5.0 [place] g/dL [facility] Protein Total 6.0 (L) 6.8 - 8.8 [place] g/dL [facility] Alkaline 144 40 - 150 [place] Phosphatase U/L [facility] ALT 33 0 - 70 U/L [facility] AST 57 (H) 0 - 45 U/L [facility] Specimen Anatomical Collection Method Collection Time Receive d Time (Source) Location / / Volume Laterality Blood specimen 05/06/2017 4:45 AM 017 4:54 (specimen) CDT AM CDT Miladys Mccullough MD LAB - BLOOD ORDERABLES Performing Organization Address City/State/ZIP Code Phon e Number [facility] [address] [address] [facility] [address] [place] [address], [place] [phone] (ABNORMAL) Basic metabolic panel (05/06/2017 4:45 AM CDT) Analysis Performed At [facility] Signature Sodium 143 133 - 144 [place] mmol/L [facility] Potassium 4.5 3.4 - 5.3 [place] mmol/L [facility] Chloride 115 (H) 94 - 109 [place] mmol/L [facility] Carbon Dioxide 20 20 - 32 [place] mmol/L [facility] Anion Gap 8 3 - 14 [place] mmol/L [facility] Glucose 129 (H) 70 - 99 [place] mg/dL [facility] Urea Nitrogen 39 (H) 7 - 30 [place] mg/dL [facility] Creatinine 1.79 (H) 0.66 - [place] 1.25 mg/dL [facility] GFR Estimate 37 (L) >60 [place] mL/min/1.[address] Comment: Non GFR Calc GFR Estimate If Black 45 (L) >60 mL/min/1.7m2 F [facility] Comment: GFR Calc Calcium 7.8 (L) 8.5 - 10.1 mg/dL [facility] Specimen Anatomical Collection Method Collection Time Receive d Time (Source) Location / / Volume Laterality Blood specimen 05/06/2017 4:45 AM 017 4:54 (specimen) CDT AM CDT Miladys Mccullough MD LAB - BLOOD ORDERABLES Performing Organization Address City/State/ZIP Code Phon e Number [facility] [address] [place] [address] [facility] [address] [place] [address], [facility] [phone] (ABNORMAL) Glucose by meter (05/06/2017 4:17 AM [...] (05/05/2017 10:35 PM CDT) Analysis Performed At [facility] logist Time Signature Sodium 144 133 - 144 [place] mmol/L [facility] Potassium 5.0 3.4 - 5.3 [place] mmol/L [facility] Chloride 113 (H) 94 - 109 [place] mmol/L [facility] Carbon Dioxide 21 20 - 32 [place] mmol/L [facility] Anion Gap 10 3 - 14 [place] mmol/L [facility] Glucose 148 (H) 70 - 99 [place] mg/dL [facility] Urea Nitrogen 46 (H) 7 - 30 [place] mg/dL [facility] Creatinine 1.95 (H) 0.66 - [place] 1.25 mg/dL [facility] GFR Estimate 34 (L) >60 [place] mL/min/1.[address] Comment: Non GFR Calc GFR Estimate If Black 41 (L) >60 mL/min/1.7m2 F [facility] Comment: GFR Calc Calcium 7.8 (L) 8.5 - 10.1 mg/dL [facility] Specimen Anatomical Collection Method Collection Time Receive d Time (Source) Location / / Volume Laterality Blood specimen 05/05/2017 10:35 7 (specimen) PM CDT 10:46 PM CDT Miladys Mccullough MD LAB - BLOOD ORDERABLES Performing Organization Address City/State/ZIP Code Phon e Number [facility] [address] [address] [facility] [address] [place] [address], [place] [phone] (ABNORMAL) Blood gas arterial with oxyhemoglobin (1200) (05/05/2017 8:20 PM CDT) Patholo gist Method Time Signature pH Arterial 7.23 (L) 7.35 - [facility] 7.45 pH [facility] pCO2 Arterial 45 35 - 45 [place] mm Hg [facility] pO2 Arterial 159 (H) 80 - 105 [place] mm Hg [facility] Bicarbonate 19 (L) 21 - 28 [place] Arterial mmol/L [facility] FIO2 BIPAP [place] 60 [facility] Oxyhemoglobin 99 92 - 100 [place] Arterial % [facility] Base Deficit Art 8.2 mmol/L [facility] Comment: Reference range: -9.0 to 1.8 Specimen Anatomical Collection Method Collection Time Receive d Time (Source) Location / / Volume Laterality Blood specimen 05/05/2017 8:20 PM 017 8:25 (specimen) CDT PM CDT Aubrey Irvin MD LAB - BLOOD ORDERABLES Performing Organization Address City/State/ZIP Code Phon e Number [facility] [address] [place] [phone] [facility] [address] [place] [address], [place] [phone] (ABNORMAL) Glucose by meter (05/05/2017 8:06 PM [...] than 300 ng/mL. This is an unconfirmed [facility] screening result to be used [...] Organization Address City/State/ZIP Code Phon e Number [facility] [address] [phone] [facility] [address] [address], [place] [phone] (ABNORMAL) Urine Microscopic (05/05/2017 5:20 PM CDT) [facility] Method Time Signature WBC Urine O - 2 0 - 2 [place] /HPF [facility] [place] RBC Urine O - 2 0 - 2 [place] /HPF [facility] Cast Urine 2-5 0 - 2 [place] HYALINE /LPF [facility] Bacteria Urine Few (A) NEG /HPF [facility] Mucous Urine Present (A) NEG /LPF [facility] Specimen Anatomical Collection Method Collection Time Receive d Time (Source) Location / / Volume Laterality 05/05/2017 5:20 PM 7 5:29 CDT PM CDT Miladys Mccullough MD LAB - URINE ORDERABLES Performing Organization Address City/[facility]/ZIP Code Phon e Number [facility] [address] [address] (ABNORMAL) UA reflex to Microscopic and Culture (05/05/2017 5:20 PM CDT) Component Value Ref Test Analysis Performed At [facility] Range Method Time Signature Color Urine Yellow [facility] Appearance Urine Clear [facility] Glucose Urine Negative NEG [place] mg/dL [facility] Bilirubin Urine Negative NEG [facility] Ketones Urine Negative NEG [place] mg/dL [facility] Specific Mcclure 1.020 1.003 - [place] Urine 1.035 [facility] Blood Urine Negative NEG [facility] pH Urine 5.5 5.0 - [place] 7.0 pH [facility] Protein Albumin 30 (A) NEG [place] Urine mg/dL [facility] Urobilinogen 0.2 0.2 - [place] Urine 1.0 [facility] EU/dL [place] Nitrite Urine Negative NEG [facility] Leukocyte Negative NEG [place] Esterase Urine [facility] [place] Source Catheterized [place] Urine [facility] [place] Specimen Anatomical Collection Method Collection Time Receive d Time (Source) Location / / Volume Laterality 05/05/2017 5:20 PM 7 5:29 CDT PM CDT Miladys Mccullough MD LAB - URINE ORDERABLES Performing Organization Address City/State/ZIP Code Phon e Number [facility] [place] [address] [place] [address] Blood culture (05/05/2017 4:30 PM CDT) [facility] gist Method Time Signature Specimen Blood Left [facility] Special Aerobic and [place] Requests anaerobic [facility] bottles [place] received Culture Micro No growth [...] MICRO GENERAL ORDERABL ES Performing Organization Address City/[facility]/ZIP Code Phon e Number INFECTIOUS DISEASES [address] [place], [place] [address] DIAGNOSTIC LABORATORY, [id number] [place] [address] [address] [place] [address] [place] INFECTIOUS DISEASE [address] DIAGNOSTIC LABORATORY Lactic acid whole blood (05/05/2017 3:50 PM CDT) P athologist Signature Lactic Acid 1.5 0.7 - 2.1 [place] mmol/L [facility] Specimen Anatomical Collection Method Collection Time Receive d Time (Source) Location / / Volume Laterality 05/05/2017 3:50 PM 7 4:06 CDT PM CDT Leesa Martinez MD LAB - BLOOD ORDERABLES Performing Organization Address City/State/ZIP Code Phon e Number [facility] [address] [place] [address] [facility] [address] [address], [facility] [phone] Blood culture (05/05/2017 3:45 PM CDT) [facility] gist Method Time Signature Specimen Blood Left [facility] Special Aerobic and [place] Requests anaerobic [facility] ED bottles [place] received Culture [...] Code Phon e Number INFECTIOUS DISEASES 420 [place] [address] DIAGNOSTIC LABORATORY, [id number] [place] [address] [address] [address], [facility] [phone] [place] INFECTIOUS DISEASE [address] [place], [place] [address] DIAGNOSTIC LABORATORY Chest XR, 1 [...] 7.22 (L) 7.35 - [place] 7.45 pH [facility] pCO2 Arterial 48 (H) 35 - 45 [place] mm Hg [facility] pO2 Arterial 112 (H) 80 - 105 [place] mm Hg [facility] Bicarbonate 20 (L) 21 - 28 [place] Arterial mmol/L [facility] Oxyhemoglobin 97 92 - 100 [place] Arterial % [facility] Base Deficit Art 7.5 mmol/L [facility] Comment: Reference range: -9.0 to 1.8 Specimen Anatomical Collection Method Collection Time Receive d Time (Source) Location / / Volume Laterality Blood specimen 05/05/2017 3:33 PM 017 3:54 (specimen) CDT PM CDT Leesa Martinez MD LAB - BLOOD ORDERABLES Performing Organization Address City/State/ZIP Code Phon e Number [facility] [address] [address] [phone] [facility] [address] [address], [facility] [phone] Troponin POCT (05/05/2017 3:29 PM CDT) P [...] EKG 12 lead (05/05/2017 3:24 PM CDT) [facility] gist Method Time Signature Interpretation ECG [...] CK Total 325 (H) 30 - 300 [facility]L [facility] Specimen Anatomical Collection Method Collection Time Receive d Time (Source) Location / / Volume Laterality 05/05/2017 3:20 PM 7 3:31 CDT PM CDT Leesa Martinez MD LAB - BLOOD ORDERABLES Performing Organization Address City/State/ZIP Code Phon e Number M [facility] [address] [place] [address] [phone] [facility] [address] [place] [address], [place] [phone] Alcohol ethyl (05/05/2017 3:20 PM CDT) P athologist Signature Ethanol g/dL <0.01 <0.01 g/dL [facility] Specimen Anatomical Collection Method Collection Time Receive d Time (Source) Location / / Volume Laterality 05/05/2017 3:20 PM 7 3:31 CDT PM CDT Leesa Martinez MD LAB - BLOOD ORDERABLES Performing Organization Address City/State/ZIP Code Phon e Number [facility] [address] [place] [address] [phone] [facility] [address] [place] [address], [place] [phone] Salicylate level (05/05/2017 3:20 PM CDT) Patholo gist Method Time Signature Salicylate <2 mg/dL [facility] Therapeutic: ?<20 [facility] [place] Anti inflammatory: ??15-30 [facility] Specimen Anatomical Collection Method Collection Time Receive d Time (Source) Location / / Volume Laterality Blood specimen 05/05/2017 3:20 PM 017 3:31 (specimen) CDT PM CDT Leesa Martinez MD LAB - BLOOD ORDERABLES Performing Organization Address City/State/ZIP Code Phon e Number [facility] [address] [place] [address] [phone] [facility] [address] [place] [address], [place] [phone] Acetaminophen level (05/05/2017 3:20 PM CDT) Component Value Ref Test Analysis Performed At [facility] gist Range Method Time Signature Acetaminophen <2 mg/L [place] Level Therapeutic range: 10-20 mg/L [facility] Specimen Anatomical Collection Method Collection Time Receive d Time (Source) Location / / Volume Laterality Blood specimen 05/05/2017 3:20 PM 017 3:31 (specimen) CDT PM CDT Leesa Martinez MD LAB - BLOOD ORDERABLES Performing Organization Address City/State/ZIP Code Phon e Number [facility] [address] [place] [address] [facility] [address] [place] [address], [place] [phone] (ABNORMAL) Comprehensive metabolic panel (05/05/2017 3:20 PM CDT) Analysis Performed At [facility] logist Time Signature Sodium 141 133 - 144 [place] mmol/L [facility] Potassium 4.4 3.4 - 5.3 [place] mmol/L [facility] Chloride 107 94 - 109 [place] mmol/L [facility] Carbon Dioxide 23 20 - 32 [place] mmol/L [facility] Anion Gap 11 3 - 14 [place] mmol/L [facility] Glucose 126 (H) 70 - 99 [place] mg/dL [facility] Urea Nitrogen 48 (H) 7 - 30 [place] mg/dL [facility] Creatinine 2.41 (H) 0.66 - [place] 1.25 mg/dL [facility] GFR Estimate 26 (L) >60 [place] mL/min/1.[address] Comment: Non GFR Calc GFR Estimate If Black 32 (L) >60 mL/min/1.7m2 F [facility] Comment: GFR Calc Calcium 8.6 8.5 - 10.1 mg/dL [facility] Bilirubin Total 0.5 0.2 - 1.3 mg/dL [facility] Albumin 3.3 (L) 3.4 - 5.0 g/dL [facility] Protein Total 6.9 6.8 - 8.8 g/dL [facility] Alkaline Phosphatase 166 (H) 40 - 150 U/L [facility] ALT 29 0 - 70 U/L [facility] AST 22 0 - 45 U/L [facility] Specimen Anatomical Collection Method Collection Time Receive d Time (Source) Location / / Volume Laterality Blood specimen 05/05/2017 3:20 PM 017 3:31 (specimen) CDT PM CDT Leesa Martinez MD LAB - BLOOD ORDERABLES Performing Organization Address City/State/ZIP Code Phon e Number M [facility] [address] [place] [address] [phone] [facility] [address] [place] [address], [place] [phone] (ABNORMAL) CBC with platelets differential (05/05/2017 3:20 PM CDT) [facility] Method Time Signature WBC 17.7 (H) 4.0 - [place] 11.0 [facility] 10e9/[facility] RBC Count 4.32 (L) 4.4 - 5.9 [place] 10e12/L [facility] Hemoglobin 14.3 13.3 - [place] 17.7 g/dL [facility] Hematocrit 42.9 40.0 - [place] 53.0 % [facility] MCV 99 78 - 100 [facility] MCH 33.1 (H) 26.5 - [place] 33.0 pg [facility] MCHC 33.3 31.5 - [place] 36.5 g/dL [facility] RDW 13.0 10.0 - [place] 15.0 % [facility] Platelet Count 170 150 - 450 [place] 10e9/L [facility] Diff Method Automated [facility] % Neutrophils 83.6 % [facility] % Lymphocytes 9.3 % [facility] % Monocytes 6.0 % [facility] % Eosinophils 0.7 % [facility] % Basophils 0.1 % [facility] % Immature 0.3 % [place] Granulocytes [facility] Nucleated RBCs 0 0 /100 [facility] Absolute 14.8 (H) 1.6 - 8.3 [place] Neutrophil 10e9/L [facility] Absolute 1.7 0.8 - 5.3 [place] Lymphocytes 10e9/L [facility] Absolute 1.1 0.0 - 1.3 [place] Monocytes 10e9/L [facility] Absolute 0.1 0.0 - 0.7 [place] Eosinophils 10e9/L [facility] Absolute 0.0 0.0 - 0.2 [place] Basophils 10e9/L [facility] Abs Immature 0.1 0 - 0.4 [place] Granulocytes 10e9/L [facility] Absolute 0.0 [place] Nucleated RBC [facility] Specimen Anatomical Collection Method Collection Time Receive d Time (Source) Location / / Volume Laterality Blood specimen 05/05/2017 3:20 PM 017 3:31 (specimen) CDT PM CDT Leesa Martinez MD LAB - BLOOD ORDERABLES Performing Organization Address City/State/ZIP Code Phon e Number [facility] [address] [address] [phone] [facility] [address] [address], [facility] [phone] documented in this encounter Visit Diagnoses Diagnosis [...] attach to NS 100 mL bag (COMPLETED) 7271 (New Bag - Provider: Rosette Reese RN) [...] Reason: IV Infusing)1717 (Not Given - Provider: Rsoette Reese RN - Reason: IV Infusing) 0100 [...] Irritant.
documented in this encounter Care Teams Shoe Fitter Relationship Specialty Start Date End Date Celina Coley PCP - General Family Practice 05/05/17 05/11/[address] [address] [place], Kehinde Portillofield PCP - General 05/12/[address] [place] [address] documented as of this encounter
--- OUTSIDE RECORDS SUMMARY | 2022-08-15 11:31 | XMS_ITS | Encounter Summary ---
:1940 Author Organization [place] Address [address] [place] [address] Care Team Providers Name Role Phone Primary Dipak Kasper MD Primary Care Provider Unavailable Celina Coley Primary Care Provider [facility] Primary Care Provider [phone] Jon White MD Unavailable [phone] Ramiro Loco MD Unavailable Gallito Gonzalez MD Unavailable Encounter Details Date Type Department Care Team Description 05/02/2014 Records - [facility] Cheryl Enriquez , RN [address] [address] Social History Tobacco Use Types [...] weeks for routine followup. Isra Fregoso M.D. [facility] Ghada Mattie [place] - 05/04/2014 3:42 [...] - 05/07/2014 12:18 PM CDT Confirmed with [facility] acceptance of pt for PT and OT. Notified pt of [facility] Care PT and OT acceptance and informed pt and daughter agency will be contacting pt on Thursday, 05/08, to schedule appointment. MARIELA Dillon, [facility] Clinical Social Work [employer] Luciano León - 05/07/2014 11:25 AM CDT [facility] Daily Progress Note Assessment/Plan: 1. Hypertension. [...] resolved, no tenderness or swelling. Isra Fregoso [facility] Date: 05/07/2014 Time: 10:42 AM Historical Provider - 05/06/2014 1:16 PM CDT [facility] met with pt re home health care services. Pt requested [facility] for PT and OT. [facility] contacted [facility] at [phone] making referral to this agency. Fax no is [phone]. [facility] will follow pt to discharge. MARIELA iDllon, [facility] Clinical Social Work Care Managedr Low Ramirez - 05/06/2014 12:12 PM CDT SHERIFF OFFICER TREATMENT NOTE Name: Speedy Hendricks : 1940 [...] to weight bear, equivocal SLR. Isra Fregoso [facility] Date: 05/06/2014 Time: 11:15 AM Lexie [...] Ca Plunkett - 05/05/2014 3:50 PM CDT SHERIFF OFFICER TREATMENT NOTE Name: Speedy Hendricks : 1940 [...] León S - 05/05/2014 9:29 AM CDT [facility] Daily Progress Note Assessment/Plan: 1. Hypertension. [...] Care Management should needs arise. Cedric Borrego MICROFILM CLERK, SPEECH PATHOLOGY SUPERVISOR Lety Dickerson RN - 05/04/2014 12:00 PM [...] Luciano León - 05/03/2014 12:31 PM CDT [facility] Daily Progress Note Assessment/Plan: 1. Hypertension. [...] Revision L4 laminotomy. SURGEON: Dr. Tin Mcclure. FULFILLMENT MAIL CLERK: Mahesh Rodgers PA-C, who was needed for [...] was seen in the preop area of [facility] today, 05/03/2014. The low back was marked [...] the next 6 weeks. HANG MCCLURE MD [facility] D 05/03/2014 09:21:55 T 05/03/2014 12:31:48 R 05/03/2014 12:31:48 [id number] cc:LUCIANO GUERRA MD documented in this encounter [...] evidence for acute fracture. Luciano León MD [facility]AG[facility] ORDER [place] XR Ankle Port [...] for fracture. Vascular calcifications. Luciano León MD [facility]IC IMAGING ORDER [place] XR Chest Port [...] documented as of this encounter Care Teams Disability Counselor Relationship Specialty Start Date End Date Primary Dr, Dipak, PCP - General 09/21/1204/18 Celina Coley PCP - General Family Practice 05/05/17 05/11/[address] [address] Kehinde Portillo PCP - General 05/12/[address] [address] Jon White Assigned Surgical Provider 08/10/20 12/08/20 MD [address] [place] [address] Ramiro Loco MD Assigned Heart and 08/10/20 05/11/21 [address] Vascular Provider [place] [address] Gallito Gonzalez, Assigned Heart and 09/29/21 Vascular Provider [address] [place] [address] documented as of this encounter
--- OUTSIDE RECORDS SUMMARY | 2022-08-15 11:31 | XMS_ITS | Encounter Summary ---
:1940 Author Organization [place] Address [address] [place] [address] Care Team Providers Name Role Phone Primary Dr, Unknown Primary Care Provider Unavailable Reason for Visit Reason Onset Date Comments Referral 10/16/2016 [facility] Encounter Details Date Type Department Care Team Description 10/16/2016 Telephone [facility] Jon White Referral ([facility]) [place] Anat Burgos MD [address] [place] [phone] [place] [address] (Wo rk) Social History Tobacco [...] get Valium before procedure and will have otr truck driver with him. MOHS at 10 45 am. [place] Telephone Encounter - Aruna Rodriguez - 10/16/2016 3:11 PM CST Pt returned RN (Lisa) phone call. Please call again Thursday AM 10/17/16. 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 Pt has appt at 10 45 pm on for second opinion on skin cancer and questions. Left message for pt to clarify whether heis planning to come in for MOHS appt or just regular appt. [place] documented in this encounter Plan of Treatment Not on filedocumented as of this encounter Visit Diagnoses Not on filedocumented in this encounter Care Teams First Aid Instructor Relationship Specialty Start Date End Date Primary Dipak Kasper MD PCP - General 09/21/1204/18 documented as of this encounter
--- OUTSIDE RECORDS SUMMARY | 2022-08-15 11:31 | XMS_ITS | Encounter Summary ---
:1940 Author Organization [place] Address [address] [place] [address] Care Team Providers Name Role Phone Primary Dr, Dipak WELSH Primary Care Provider Unavailable Encounter Details Date Type Department Care Team Description 11/29/2014 - Hospital Encounter [facility] Hang Mcclure phoebe stenosis, lumbar region, without neurogenic claudication; 12/01/2014 [facility] MD Koki AAA (abdominal aortic aneurysm) (H); [place] 3 [facility] Diabetes mellitus (H); [address] [facility] ORTHOPEDICS Hypertension; Drive [address] BPH (benign prostatic hyperp lasia); [place], [place] [address] HLD (hyperlipidemia); [address] [place], [place] Hyperglycemia, drug-induced; [phone] MRSA (methicillin resistant staph aureus ) [...] 90.7 kg (200 lb) 11/29/2014 9:33 AM FARM OWNER OPERATOR Height 180.3 cm (5' 11) 11/29/2014 9:33 AM FARM OWNER OPERATOR Body Mass Index 27.89 11/29/2014 9:33 AM FARM OWNER OPERATOR documented in this encounter Discharge Summaries [...] the office in about 2 weeks. Call [phone] if patient needs to schedule appointment. Dimas Hale PA-C Date: 12/01/2014 Time: 7:49 AM OWNER OPERATOR documented in this encounter Medications at [...] CULTURE - Final result (09/22/2012 3:43 PM FARM OWNER OPERATOR) [facility] Records Component Value Range SOURCE [...] MD Date: 12/01/2014 Time: 2:00 PM [facility] Family Medicine OWNER OPERATOR Dimas Hale - 12/01/2014 7:25 AM [...] Low Dias - 11/30/2014 2:35 PM CST ROD STRAIGHTENER TREATMENT NOTE Name: Speedy Hendricks : 1940 Acupuncture Treatment Patient Type: Orthopedic Intervention Reason: Urinary Retention Patient complaint:: Unable to void Acupunture (Points):: [place] 3, 4, 6, [address] Risks and benefits discussed. Low Ramirez L.Ac. Date: 11/30/2014 Time: 2:36 PM Marcelino Hernandez MD - 11/30/2014 8:13 AM CST [facility] Medicine Service Progress Note Assessment/Plan: -Lumbar stenosis, [...] Radiology Radiology Results: personally reviewed the impression OWNER OPERATOR Rahda Grey - 11/29/2014 5:01 PM CST Acute Pain Management Team Consulting provider: Dr. Mcclure/Dr. Finch POD#:0 Procedure: LEFT L2-3, L3-4 POSTERIOR FUSION AND L3-4 REVISION DECOMPRESSION Home pain regimen: Opioid status: Tolerant [place] 7.5/325 mg-1 tabs q 4 -6 h prn-pt reports taking no more than 6 /day Oxycodone 2.5-5 mg po q 4 h prn_juse recent Rx due to increased nerve pain L leg Arthrotec 75 mg po bid prn Current pain regimen: Will change standard regiment of oxycodone scheduled and oxycodone prn to [place] 7.5/325 and prn oxycodone. Dilaudid IV bumps [...] tolerant , especially whenviewing Rx history of [place] 7.5/325, but he and family report him not taking more than 6 tablets perday of [place] 7.5/325, and have new Rx for oxycodone, but reports only taking 2.5 mg dose at a time. He is very sedated now, and will start out conservatively, not knowing exactly how much [place] he was taking at home. Pt and family reported he is very sensitive to oxycodone, but does well on [place]. Assessment/Plan: [place] 7.3/325 1- tablet every 4 hours Oxycodone -2.5 -5 mg po q 4 h prn BTP Discussed with Dr. Finch Will follow pt Radha Grey RPh 11/29/2014 5:02 PM OWNER OPERATOR Marcelino Finch MD - 11/29/2014 4:45 PM CST [facility] Medicine Service Progress Note Assessment/Plan: -Lumbar stenosis, [...] Radiology Radiology Results: personally reviewed the impression OWNER OPERATOR Saman Bernard - 11/29/2014 10:38 AM CST [facility]) Hopes: Pt hopes to have his leg pain stop after surgery. Needs: Pt needs support of family. Resources: pt has his spouse and several family members in the room with him as resources and support. Additional Notes: pt joked with this bricklayer apprentice about Gaines's Day and Saint Yonatan's Day; to thischaplain, having a sense of humor is an additional resource for this patient. Prayer declined, visitonly. Follow up: None planned. Spiritual care upon request. OWNER OPERATOR documented in this encounter H&P Notes Hang Mcclure - 11/29/2014 10:46 AM CST The patient's history has been reviewed and there are no pertinent changes OWNER OPERATOR documented in this encounter Miscellaneous Notes [...] was seen in the preop area of [facility] today. Low back was marked and the [...] two 60 mm rods. The system was Contact At Once!RH 3DX. We decorticated the facet joints on [...] the instrumentation. All instrumentation was tightened to drafter marine's specifications. We then closed the deep fascia [...] used during this case Medtronic TSRH 3DX OWNER OPERATOR documented in this encounter Plan of Treatment Not on filedocumented as of this encounter Procedures Procedure Name Priority Date/Time Associated Diagnosis Comme nts CROSSMATCH RED CELLS Routine 12/02/2014 10:40 Res ults for this AM FARM OWNER OPERATOR procedure are i n the results section. CROSSMATCH RED CELLS Routine 12/02/2014 10:40 Res ults for this AM FARM OWNER OPERATOR procedure are i n the results section. XR LUMBAR SPINE PORT Routine 11/29/2014 1:38 Spinal stenosis, Results for this 2/3 VIEWS PM FARM OWNER OPERATOR lumbar region, procedure are in without neurogenic the resul ts claudication section. XR SURGERY CHRIS FLUORO Routine 11/29/2014 1:37 Spinal stenosis , Results for this GREATER THAN 5 MIN PM FARM OWNER OPERATOR lumbar region, procedu re are in without neurogenic the resul ts claudication section. RED CELL ANTIGEN Routine 11/29/2014 10:17 Results for this TYPING NON ABO AM FARM OWNER OPERATOR procedure are in the results section. ANTIBODY Routine 11/29/2014 10:17 Results for this IDENTIFICATION AM FARM OWNER OPERATOR procedure are in the results section. EKG CARDIAC - HIM SCAN 11/29/2014 documented in this encounter Results Crossmatch red cells (12/02/2014 10:40 AM FARM OWNER OPERATOR) [facility] Method Time Signature Crossmatch COMPATIBLE 12/02/2014 BLOOD BANK 10:40 AM FARM OWNER OPERATOR Unit ABO/RH O Pos 12/02/2014 BLOOD BANK 10:40 AM FARM OWNER OPERATOR Unit Number [id number] 12/02/2014 BLOOD BANK 10:40 AM FARM OWNER OPERATOR Status Released 12/02/2014 BLOOD BANK 10:40 AM FARM OWNER OPERATOR Component Red Blood 12/02/2014 BLOOD BANK Cells 10:40 AM FARM OWNER OPERATOR Product Code [id number] 12/02/2014 BLOOD BANK 10:40 AM FARM OWNER OPERATOR Specimen (Source) Anatomical Location Collection Method / Collectio n Time Received Time / Laterality Volume Hang Mcclure MD LAB - BLOOD BANK PRODUCT ORD ER Performing Organization Address [facility] Phon e Number [facility] BLOOD BANK [address] [place] [address] BLOOD BANK [address] [place] [address] Crossmatch red cells (12/02/2014 10:40 AM FARM OWNER OPERATOR) [facility] gist Method Time Signature Crossmatch COMPATIBLE 12/02/2014 BLOOD BANK 10:40 AM FARM OWNER OPERATOR Unit ABO/RH O Pos 12/02/2014 [facility] BLOOD BANK 10:40 AM FARM OWNER OPERATOR Unit Number [id number] 12/02/2014 BLOOD BANK 10:40 AM FARM OWNER OPERATOR Status Released 12/02/2014 BLOOD BANK 10:40 AM FARM OWNER OPERATOR Component Red Blood 12/02/2014 BLOOD BANK Cells 10:40 AM FARM OWNER OPERATOR Product Code [id number] 12/02/2014 [facility] BLOOD BANK 10:40 AM FARM OWNER OPERATOR Specimen (Source) Anatomical Location Collection Method / Collectio n Time Received Time / Laterality Volume Hang Mcclure MD LAB - BLOOD BANK PRODUCT ORD ER Performing Organization Address [facility] Phon e Number [facility] BLOOD BANK [address] [place] [address] [address]OD [address] [place] [address] XR Lumbar Spine Port 2/3 Views (11/29/2014 1:38 PM FARM OWNER OPERATOR) Anatomical Region Laterality Modality Spine Other Specimen (Source) Anatomical Location Collection Method / Collectio n Time Received Time / Laterality Volume Narrative 11/29/2014 1:51 PM FARM OWNER OPERATOR XR LUMBAR SPINE 2 OR 3 [...] Fluoro G/T 5 Min (11/29/2014 1:37 PM FARM OWNER OPERATOR) Anatomical Region Laterality Modality Abdomen/Pelvis Other Specimen (Source) Anatomical Location Collection Method / Collectio n Time Received Time / Laterality Volume Narrative 11/29/2014 1:37 PM FARM OWNER OPERATOR Please see the Radiology Report for result for body part of interest. Procedure Note Provider, Historical - 03/23/2021Formatt ing of this note might be different from the original. Please see the Radiology Report for resu lt for body part of interest. Hang Mcclure MD IMG DIAGNOSTIC IMAGING ORDER BRAYDEN Antibody identification (11/29/2014 10:17 AM FARM OWNER OPERATOR) Patholo gist Method Time Signature Antibody > 3hr for 11/29/2014 BLOOD BANK Identification more 1:34 PM FARM OWNER OPERATOR blood;Ant i-Rosa Specimen Anatomical Collection Method / Collection Time Recei fany Time (Source) Location / Volume Laterality Blood specimen Venipuncture / 11/29/2014 10:17 015 1:34 (specimen) Unknown AM FARM OWNER OPERATOR PM FARM OWNER OPERATOR Hang Mcclure MD LAB - BLOOD BANK TEST ORDER Performing Organization Address City/State/ZIP Code Phon e Number [facility] BLOOD BANK [address] [place] [address] BLOOD BANK [address] [place] [address] Red Cell Antigen Typing Non ABO: (11/29/2014 10:17 AM FARM OWNER OPERATOR) P athologist Signature K Antigen Type Negative 11/29/2014 BLOOD BANK 1:16 PM FARM OWNER OPERATOR Specimen Anatomical Collection Method / Collection Time Recei fany Time (Source) Location / Volume Laterality Blood specimen Venipuncture / 11/29/2014 10:17 015 1:16 (specimen) Unknown AM FARM OWNER OPERATOR PM FARM OWNER OPERATOR Narrative [facility] BLOOD BANK - 11/29/2014 1:16 PM FARM OWNER OPERATOR K Antigen Hang Mcclure MD LAB - BLOOD BANK TEST ORDER Performing Organization Address City/State/ZIP Code Phon e Number [facility] BLOOD BANK [address] [place] [address] BLOOD BANK [address] [place] [address] EKG CARDIAC - HIM SCAN (11/29/2014) Specimen [...] aureus documented in this encounter Care Teams Posting Specialist Relationship Specialty Start Date End Date Primary Dipak Kasper MD PCP - General 09/21/1204/18 documented as of this encounter
--- OUTSIDE RECORDS SUMMARY | 2022-08-15 11:31 | XMS_ITS | Encounter Summary ---
:1940 Author Organization [place] Address [address] [place] [address] Care Team Providers Name Role Phone Primary Dr, Unknown Primary Care Provider Unavailable Reason for Visit Reason Comments Back Pain Leg Pain Encounter Details Date Type Department Care Team Description [facility] [address] [place], [place] [id number] Acute low back pain 04/30/2017 Encounter [facility] Dilshad John MD [address] [place] [address] due to trauma [address] Provider, Historical [address] [place] [address] Social History Tobacco Use Types [...] John MD - 04/30/2017 2:09 PM CDT [facility] MEDICINE DISCHARGE SUMMARY Primary Care Physician: Kannan Nieto MD Admission Date: 04/28/2017 Discharge Provider: Dilhsad John Discharge Date: 04/30/2017 Diet: cardiac diet [...] COURSE: Nondisplaced insufficiency type sacral fractures - [facility] consult, patient of Dr Mcclure and his injury was described to him -no surgery inidcated - IV dilaudid. He also does ok with oral oxycodone and Newell - taper off IV opioids and optimize [...] MULTIVITAMIN Tab Dose: 1 tablet Generic drug: multivitamin,cc-grpj-ithtyjtc 1 tablet, Oral, DAILY desonide 0.05 % [...] in 2-3 weeks or as needed at [facility]. Call our scheduling line at [phone] to make an appointment if you do [...] Comments Follow-up in: Within [facility] Follow-up appointment with Primary Care [...] EMR for more detailed significant labs, imaging, solar sales consultant notes etc. Total time spent [...] Ca Plunkett - 04/30/2017 12:19 PM CDT BULB INSPECTOR TREATMENT NOTE Name: Speedy Burris Eladio : [...] Plans: Nondisplaced insufficiency type sacral fractures - [place] [facility] consult, patient of Dr Mcclure and his injury was described to him -no surgery inidcated - IV dilaudid. He also does ok with oral oxycodone and Newell - taper off IV opioids and optimize [...] Lumbar Spine Without Contrast Result Date: 04/29/2017 [facility] MR LUMBAR SPINE WO CONTRAST 04/28/2017 [...] right neural foraminal stenosis. 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 CUTTING AND PRINTING MACHINE OPERATOR Med List Medication Sig Note [...] day. 04/27/2017 at just started 04/27 ??? multivitamin,qu-ijmv-pxzqfszf (COMPLETE MULTIVITAMIN) Tab Take 1 tablet by mouth daily. Past Week at Unknown time ??? pramipexole (MIRAPEX) 0.5 MG tablet Take 0.5 mg by mouth at bedtime. 04/26/2017 ??? terazosin (HYTRIN) 5 MG capsule Take 5 mg by mouth at bedtime. 04/26/2017 ??? [DISCONTINUED] acetaminophen (TYLENOL ARTHRITIS PAIN) 650 MG CR tablet Take by mouth. 04/28/2017:Received from: [facility] Received Sig: Takes 1 tablet as needed. ??? [DISCONTINUED] atorvastatin (LIPITOR) 40 MG tablet Take 40 mg by mouth. 04/28/2017: Received from: [facility] Received Sig: Take 1 tablet by mouth once daily. ??? [DISCONTINUED] desonide (DESOWEN) 0.05 % lotion Apply topically. 04/28/2017: Received from: [facility] Received Sig: Apply topically to affected area(s) 2 timesdaily. ??? [DISCONTINUED] diclofenac (VOLTAREN) 75 MG EC tablet Take 75 mg by mouth. 04/28/2017: Received from: [facility] Received Sig: Take 1 tablet by mouth 2 times daily with meals. ??? [DISCONTINUED] diflorasone (PSORCON) 0.05 % ointment Apply topically. 04/28/2017: Received from: [facility] Received Sig: Apply topically to affected area(s) once daily. ??? [DISCONTINUED] gabapentin (NEURONTIN) 300 MG capsule Start 1 pill QHS, increase up to TID prn 04/28/2017: Received from: [facility] ??? [DISCONTINUED] HYDROcodone-acetaminophen (NORCO) 7.5-325 mg per tablet Take 1 tablet by mouth. 04/28/2017: Received from: [facility] Received Sig: Take 1 tabletby mouth every 4 hours if needed for Pain May take 1.5 every 4 hours for severe pain ??? [DISCONTINUED] metoprolol tartrate (LOPRESSOR) 50 MG tablet Take 50 mg by mouth. 04/28/2017: Received from: [facility] Received Sig: Take 1 tablet by mouth 2 times daily. ??? [DISCONTINUED] miSOPROStol (CYTOTEC) 200 MCG tablet Take 200 mcg by mouth. 04/28/2017: Received from: [facility] Received Sig: Take 1 tablet by mouth 2 times daily with meals. ??? [DISCONTINUED] morphine (MS CONTIN) 15 MG 12 hr tablet Take 15 mg by mouth. 04/28/2017: Received from: [facility] Received Sig: Take 1 tablet by mouth 2 times daily ??? [DISCONTINUED] multivitamin (ONE A DAY) per tablet Take by mouth. 04/28/2017: Received from: [facility] Received Sig: take 1 tablet by oral route once daily with food ??? [DISCONTINUED] pramipexole (MIRAPEX) 0.5 MG tablet Take 0.5 mg by mouth. 04/28/2017: Received from: [facility] Received Sig: Take 1 tablet by mouth at bedtime. ??? [DISCONTINUED] terazosin (HYTRIN) 5 MG capsule Take 5 mg by mouth. 04/28/2017: Received from: [facility] Received Sig: Take 1 capsule by mouth at bedtime. Information source(s): Patient Summary of Changes to CUTTING AND PRINTING MACHINE OPERATOR Med List New: dulcolax, calcium +d Discontinued: none Changed: diclofenac to qday; misoprostol to qday; mirapex to qhs; Patient was asked about OTC/herbal products specifically. CUTTING AND PRINTING MACHINE OPERATOR med list reflects this. Based on the pharmacist???s assessment, the CUTTING AND PRINTING MACHINE OPERATOR med list information appears reliable Patient appears compliant: Yes Allergies were reviewed, assessed, and updated with the patient. Medications currently not available for use during hospital stay. Family/Patient technical account representative states they will bring topicals to [facility]. Thank you for the opportunity to [...] point he can't function at home. - [place] [facility] consult, patient of Dr Mcclure - YEVGENIY dillesaid. He also does ok with oral oxycodone and Newell - NPO, IVMF -Also has ordered for [...] care. Talked to patient. Dilshad John MD [facility] Hospitalist documented in this encounter H&P Notes Mili Monet MD - 04/28/2017 2:30 AM CDT Admission History and Physical Speedy Hendricks, 1940, [facility] Acute low back pain due to trauma [M54.5] PCP: Kannan Nieto MD, Code status: Full Code Extended Emergency Contact Information Primary Emergency Contact: Sania Hendricks Address: [address] [place] [address] Mobile Relation: Spouse Secondary Emergency Contact: Chastity [facility] Mobile Relation: Child Date of Service: 04/28/2017 [...] point he can't function at home. - [place] [facility] consult, patient of Dr Mcclure - YEVGENIY jack. He also does ok with oral oxycodone and Newell - NPO, IVMF - Consider steroid but [...] not show any fracture. He was prescribed Newell. The pain did not improve. Patient saw [...] Hang Mcclure MD; Location: [facility] OR; Service: ??? TONSILLECTOMY Allergies Reviewed [...] mouth 2 (two) times a day. ??? multivitamin,tj-jdqb-dmsgalox (COMPLETE MULTIVITAMIN) Tab Take by mouth. ??? [...] Social History Narrative He severed in the [employer]. 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 [...] COMPATIBLE Unit Type O Pos Unit Number [id number] Status Released Component Red Blood Cells PRODUCT CODE [id number] Crossmatch Result Value Ref Range Crossmatch COMPATIBLE Unit Type O Pos Unit Number [id number] Status Released Component Red Blood Cells PRODUCT CODE [id number] Creatinine Result Value Ref Range Creatinine 1.34 [...] patient and family 04/28/2017 Mili Monet MD [facility] Medicine Service documented in this encounter Consult Notes Rae Campo PA-C - 04/28/2017 12:49 PM CDT ORTHOPEDIC CONSULTATION Consultation SHREYA Clarke 1940, [facility] Acute low back pain due to trauma [M54.5] PCP: Kannan Nieto MD, Code status: Full Code Extended Emergency Contact Information Primary Emergency Contact: Sania Hendrikcs Address: [address] [id number] Mobile Relation: Spouse Secondary Emergency Contact: Chastity [facility] Mobile Relation: Child CHIEF COMPLAINT: Acute low [...] and he was seen at a [facility] urgent care on 04/22 and was give a medrol dose pack which gave him somepain relief, but the pain returned once the dose pack was finished. He also had a CT scan ordered which he had done at [facility]. He was scheduled to see Dr. [...] day. 04/27/2017 at just started 04/27 ??? multivitamin,am-opkv-gmtmctec (COMPLETE MULTIVITAMIN) Tab Take 1 tablet by [...] Mcclure and Dr. Burger, on-call surgeon for [facility] and they are in agreement with [...] follow this patient. Thank you for including [facility] in the care of Speedy Hendricks. [...] behalf by Jhon Park, a trained medical clerk. The creation of this record is [...] ; Surgeon: Hang Mcclure MD; Location: [facility]; Service: ??? TONSILLECTOMY Past Medical History: [...] l stenosis. Narrative 04/29/2017 9:20 AM CDT [facility] MR LUMBAR SPINE WO CONTRAST 04/28/2017 [...] note might be different from the original. [facility] MR LUMBAR SPINE WO CONTRAST 04/28/2017 [...] tracing only (04/28/2017 2:05 AM CDT) [facility] gist Method Time Signature Systolic Blood 184 mmHg 04/28/2017 HE [facility]ANT Pressure 8:51 AM CDT CONVERSION Diastolic Blood 98 mmHg 04/28/2017 HE RADIANT Pressure 8:51 AM CDT CONVERSION Ventricular Rate 60 BPM 04/28/2017 HE RADIANT 8:51 AM CDT CONVERSION Atrial Rate 60 BPM 04/28/2017 HE RADIANT 8:51 AM CDT CONVERSION MA Interval 160 ms 04/28/2017 HE RADIANT 8:51 AM CDT CONVERSION QRS Duration 88 ms 04/28/2017 HE RADIANT 8:51 AM CDT CONVERSION QT 432 ms 04/28/2017 HE RADIANT 8:51 AM CDT CONVERSION QTc 432 ms 04/28/2017 HE RADIANT 8:51 AM CDT CONVERSION P Idamay 16 degrees 04/28/2017 HE RADIANT 8:51 AM CDT CONVERSION R AXIS 16 degrees 04/28/2017 HE RADIANT 8:51 AM CDT CONVERSION T Idamay 19 degrees 04/28/2017 HE RADIANT 8:51 AM CDT CONVERSION Interpretation Normal sinus rhythm 04/28/2017 HE R ADIANT ECG Normal ECG 8:51 AM CDT CONVERSION No previous ECGs available Confirmed by VEL ??SUKHJINDER WELSH LOC:JN ([id number]) on 04/28/2017 8:5 1:37 AM Specimen Anatomical [...] Lumbago documented in this encounter Care Teams Rotor Balancer Relationship Specialty Start Date End Date Primary Dipak Kasper MD PCP - General 09/21/1204/18 documented as of this encounter
--- OUTSIDE RECORDS SUMMARY | 2022-08-15 11:31 | XMS_ITS | Encounter Summary ---
:1940 Author Organization [place] Address [address] [place] [address]. [place] [address] Care Team Providers Name Role Phone Celina Coley Primary Care Provider Reason for Visit Auth/Cert Specialty Diagnoses / Procedures Referred By Contact Refer red To Contact Intensive Care Diagnoses Opioid overdose, accidental or unintentional, initial encounter (H) Aspiration pneumonia, unspecified aspiration pneumonia type, unspecified laterality, unspecified part of lung (H) Unresponsiveness Intensive Care [address] [address] Phone: Referral ID Status Reason Start Date Expiration Date Visits Requ ested Visits Authorized [id number] 1 1 Encounter Details Date Type Department Care Team Description 05/06/2017 Anesthesia Event M [facility]ronnie[facility] ROUGHER FOR CEMENT MOBILE LAB TECHNICIAN [address] [address] ANES [phone] [place] [place] [id number] (Wo rk) Anesthesia Record Procedure Summary Procedure Name Responsible Anesthesiologist Anesthesia Start Ti me Anesthesia Stop Time IV START 05/06/17212005/06/172140 Events Date Time Event Comment 05/06/20172120 An Start 2140 Quick Note Diagnosis: Venou s Insufficiency Procedure: IV Start Ordering Physici an: Dr Rodriguez Location:[facility] ICU 357 2141 An Stop [...] RN Darby, Timo thy J, (difficulty standing, ROUGHER FOR CEMENT IRISH MOSS OPERATOR alerted mental status) Peripheral IV 05/06/17; 2135; 20 G; 05/06/17 2135 by 05/08/17 0300 by Right; Lower forearm; Albino Benavidez APRN Graa lum, Scott, RN Alcohol; Injectable; MOBILE LAB TECHNICIAN Tolerated well Peripheral IV 05/06/17; 2140; 20 G; 05/06/17 2140 by 05/08/17 1619 by Right; Upper forearm; Albino Benavidez APRN With Rosette vieyra Alcohol; Injectable; MOBILE LAB TECHNICIAN JOSE Clifton Tolerated well documented in this [...] on filedocumented in this encounter Care Teams Patient Registration Supervisor Relationship Specialty Start Date End Date Celina Coley PCP - General Family Practice 05/05/17 05/11/[address] [address] documented as of this encounter
--- OUTSIDE RECORDS SUMMARY | 2022-08-15 11:31 | XMS_ITS | Encounter Summary ---
:1940 Author Organization [place] Address [address] [place] [address] Care Team Providers Name Role Phone Primary Dr, Dipak WELSH Primary Care Provider Unavailable Reason for Visit Reason Onset Date Comments Appointment 10/30/2016 Encounter Details Date Type Department Care Team Description 10/30/2016 Telephone [facility] Jon White, Appointment Miguel Coppola MD [address] [place] [address] [phone] [place] [address] (Wo rk) Social History Tobacco [...] before procedure. Pt's daughter will accompany him. Telephone Encounter - Lisa Diaz RN - 10/30/2016 2:33 PM CST Left detailed message for pt' daughter explaining patient can have MOHS done next week in order to save himself an extra trip or they can just come in and have consult 1st. Telephone Encounter - Aruna Rodriguez - 10/30/2016 8:14 AM CST Patient's daughter would like clarification as to whether Mr. Hendricks is having Mohs surgery rather than consult only - as it's scheduled @ 10:45. Please advise Raquel. documented in this encounter Plan of Treatment Not on filedocumented as of this encounter Visit Diagnoses Not on filedocumented in this encounter Care Teams Clinical Laboratory Aide Relationship Specialty Start Date End Date Primary Dipak Kasper MD PCP - General 09/21/1204/18 documented as of this encounter
--- OUTSIDE RECORDS SUMMARY | 2022-08-15 11:31 | XMS_ITS | Encounter Summary ---
:1940 Author Organization [place] Address [address] [place] [address] Care Team Providers Name Role Phone Primary DrDipak MD Primary Care Provider Unavailable Celina Coley Primary Care Provider [facility] Primary Care Provider [phone] Jon White MD Unavailable [phone] Ramiro Loco MD Unavailable Gallito Gonzalez [...] documented as of this encounter Care Teams Weight Trainer Relationship Specialty Start Date End Date Primary DrDipak, PCP - General 09/21/1204/18 Celina Coley PCP - General Family Practice 05/05/17 05/11/[address] [address] Kehinde Portillo PCP - General 05/12/[address] [address] Jon White Assigned Surgical Provider 08/10/20 12/08/20 MD Aubrey [address] [place] [address] Ramiro Loco MD Assigned Heart and 08/10/20 05/11/21 [address] Vascular Provider [place] [address]46[address] Gallito Gonzalez, Assigned Heart and 09/29/21 MD Vascular Provider [address] [place] [address] documented as of this encounter
--- OUTSIDE RECORDS SUMMARY | 2022-08-15 11:31 | XMS_ITS | Encounter Summary ---
:1940 Author Organization [place] Address [address] [place] [address] Care Team Providers Name Role Phone Primary Dipak Kasper MD Primary Care Provider Unavailable Celina Coley Primary Care Provider [facility] Primary Care Provider [phone] Jon White MD Unavailable [phone] Ramiro Loco MD Unavailable Encounter Details Date Type Department Care Team Description 11/29/2014 [facility]est[facility] - [facility] George Sumter [place] [address] [place] [address] [place], [place] [phone] Social History Tobacco Use Types Packs/Day Years [...] Hydration: adequate Anesthetic complications: no Additional Notes: E TOURING GUIDE Anesthesia Preprocedure Evaluation - Néstor Stack - 11/29/2014 10:00 AM CST Anesthesia Evaluation Patient summary reviewed No history of anesthetic complications Airway Mallampati: II Neck ROM: full Pulmonary - negative ROS and normal exam Cardiovascular (+) hypertension well controlled, (-) past IL, CAD, CABG/stent, dysrhythmias ECG reviewed Rhythm: regular Rate: normal Neuro/Psych - negative ROS Endo/Other (+) diabetes mellitus type 2 well controlled, obesity, GI/Hepatic/Renal - negative ROS Dental - normal exam Anesthesia Plan Planned anesthetic: general endotracheal Decadron (8 mg), Zofran. ASA 2 Induction: intravenous Anesthetic plan and risks discussed with: patient Post-op plan: routine recovery E TOURING GUIDE documented in this encounter Miscellaneous Notes [...] documented as of this encounter Care Teams Polisher Sand Relationship Specialty Start Date End Date Primary Dipak Kasper MD PCP - General 09/21/1204/18 Celina Coley PCP - General Family Practice 05/05/17 05/11/[address] [address] Kehinde Portillo PCP - General 05/12/[address] [address] Jon White Assigned Surgical Provider 08/10/20 12/08/20 MD Aubrey [address] [place] [address] Ramiro Loco MD Assigned Heart and 08/10/20 05/11/21 [address] [place] [address] Vascular Provider [place] [address] documented as of this encounter
--- OUTSIDE RECORDS SUMMARY | 2022-08-15 11:31 | XMS_ITS | Encounter Summary ---
:1940 Author Organization [place] Address [address] [place] [address] Care Team Providers Name Role Phone Primary Dipak Kasper MD Primary Care Provider Unavailable Celina Coley Primary Care Provider [facility] Primary Care Provider [phone] Jon White MD Unavailable [phone] Ramiro Loco MD Unavailable Encounter Details Date Type Department Care Team Description 11/29/2014 Surgery - [facility] Hang Mcclure, [facility] OR [facility] [address] [place] [phone] [place] [address] [phone] (Wo rk) Social History Tobacco Use Types [...] 90.7 kg (200 lb) 11/29/2014 9:33 AM OPTOMETRY DOCTOR Height 180.3 cm (5' 11) 11/29/2014 9:33 AM OPTOMETRY DOCTOR Body Mass Index 27.89 11/29/2014 9:33 AM OPTOMETRY DOCTOR documented in this encounter Plan of Treatment Not on filedocumented as of this encounter Visit Diagnoses Not on filedocumented in this encounter Additional Health Concerns Infection Onset Date Last Indicated Resolved Time MRSAComment: Positive 02/17/11 and 09/22/12 11/05/2018 019 Negatives 05/03/14 (HE), 12/01/14 (HE) documented as of this encounter Care Teams Melting Supervisor Relationship Specialty Start Date End Date Primary Dipak Kasper MD PCP - General 09/21/1204/18 Celina Coley PCP - General Family Practice 05/05/17 05/11/[address] [address] Kehinde Portillo PCP - General 05/12/[address] [address] Jon White Assigned Surgical Provider 08/10/20 12/08/20 MD Aubrey [address] [place] [address] Ramiro Loco MD Assigned Heart and 08/10/20 05/11/21 [address] [facility] Vascular Provider [place] [address] documented as of this encounter
--- OUTSIDE RECORDS SUMMARY | 2022-08-15 11:31 | XMS_ITS | Encounter Summary ---
:1940 Author Organization [place] Address [address] [place] [address] Care Team Providers Name Role Phone Primary Dr, Unknown Primary Care Provider Unavailable Reason for Visit Reason Comments Dressing Change Encounter Details Date Type Department Care Team Description 11/18/2016 Allied Health/Nurse [facility] Dressing Change Visit [address] [phone] Social History Tobacco Use [...] healed. IN CASE OF EMERGENCY: Dr White [phone] If you were seen in [place] call: [phone] If you were seen in [place] call: [phone] ORARY OFFICE ASSISTANT documented in this encounter Progress Notes [...] needed. Patient verbalized understanding. .Marva Aj CMA ORARY OFFICE ASSISTANT documented in this encounter Plan of Treatment Not on filedocumented as of this encounter Visit Diagnoses Diagnosis Encounter for change or removal of surgi hannah wound dressing - Primary documented in this encounter Care Teams Rope Twisting Machine Operator Relationship Specialty Start Date End Date Primary Dipak Kasper, PCP - General 09/21/1204/18 documented as of this encounter
--- OUTSIDE RECORDS SUMMARY | 2022-08-15 11:32 | XMS_ITS | Encounter Summary ---
:1940 Author Organization [place] Address Formerly [facility], [address] [place] [address] Care Team Providers Name Role Phone Unavailable Primary Care Provider Unavailable Reason for Visit Reason Comments Surgical Followup follow up to left foot surge ry. Encounter Details Date Type Department Care Team Description 07/16/2011 Office Visit [facility] Sal Chaparro p ain (Primary Dx); Clinic Yumiko Castellanos DPM [place] [address] [place] [address] [place] [phone] [place] [address] Social History Tobacco Use Types [...]
--- OUTSIDE RECORDS SUMMARY | 2022-08-15 11:32 | XMS_ITS | Encounter Summary ---
:1940 Author Organization [place] Address [address] [place] [address] Care Team Providers Name Role Phone Unavailable Primary Care Provider Unavailable Encounter Details Date Type Department Care Team Description 08/05/2012 Telephone [facility] Sal Chaparro DPM [address] [place] [phone] [place] [address] [place] [address] (Wo rk) Social History Tobacco Use Types [...] outlook. Date/Time: 09/30/2012 @ 12:50 pm Hospital: [facility] Anesthesia: MAC Surgeon: Juana CuortneyPNomanMNoman Preop:Unknown Consent: Hardware removal left foot Surgeon Procedure Time: 30 min Anesthesia: MAC Location: [facility] Pre-Operative Medications: Clindamycin 900 mg IV pre-op Special Instrumentation: Synthes mini locking plate screw tractor sweeper driver Electronically signed by Sal F. Krysta,DPM [...]
--- OUTSIDE RECORDS SUMMARY | 2022-08-15 11:32 | XMS_ITS | Encounter Summary ---
:1940 Author Organization [place] Address [address] [place] [address] Care Team Providers Name Role Phone Unavailable Primary Care Provider Unavailable Reason for Visit Reason Comments Surgical Followup 02/06 left foot post op. Encounter Details Date Type Department Care Team Description 02/14/2011 Office Visit [facility] aSl Chaparroca re following Yariel Castellanos DPM surgery of the [facility] [address] musculoskeletal system, [place] [address] E NEC (Primary Dx) [phone] [address] [place], [place] [address] Social History Tobacco Use Types [...] Component Value Ref Test Analysis Performed At [facility] Range Method Time Signature Specimen Toe [place] Description [facility] Culture Micro Heavy growth [place] Methicillin [facility] Staphylococcus aureus (MRSA) Micro Report FINAL 02/17/2011 [place] Status [facility] Specimen Anatomical Collection Method Collection [...] Address City/State/ZIP Code Phon e Number M [facility] [address] [place] [address] [facility] documented in this encounter Visit Diagnoses Diagnosis Aftercare following surgery of the [facility] loskeletal system, NEC - Primary documented in this encounter
--- OUTSIDE RECORDS SUMMARY | 2022-08-15 11:32 | XMS_ITS | Encounter Summary ---
:1940 Author Organization [place] Address [address] [place] [address] Care Team Providers Name Role Phone Unavailable Primary Care Provider Unavailable Reason for Visit Reason Onset Date Comments Schedule Surgery 01/30/2011 Encounter Details Date Type Department Care Team Description 01/30/2011 Telephone [facility] Sal Engel, Schedule Surgery [address] [place] [address] 1021 [facility] [phone] [facility] [address] [place], [place] [address] (Wo rk) Social History Tobacco Use Types Packs/Day Years Used Date Smoking Tobacco: Never Assessed Sex Assigned at Date Recorded Not on file documented as of this encounter Miscellaneous Notes Telephone Encounter - Kandy Cain - 02/04/2011 1:02 PM CDT Packet mailed. Kandy Cain CMA Telephone Encounter - Kandy Cain - 01/31/2011 12:49 PM CDT Added to [place] Telephone Encounter - Kandy Cain - 01/31/2011 [...] surgery details for pt? February 06 or [phone] or [phone] Thank you, Kandy Cain CMA documented in this encounter Plan of Treatment Not on filedocumented as of this encounter Visit Diagnoses Not on filedocumented in this encounter
--- OUTSIDE RECORDS SUMMARY | 2022-08-15 11:32 | XMS_ITS | Encounter Summary ---
:1940 Author Organization [place] Address [address] [place] [address] Care Team Providers Name Role Phone Unavailable Primary Care Provider Unavailable Reason for Visit Reason Comments Surgical Followup 02/06 left foot post op and r ight great toe post op. Encounter Details Date Type Department Care Team Description 04/02/2011 Office Visit [facility] Sal Chaparro aftercare Clinic Yumiko Castellanos DPM (Primary Dx) [address] [place] [phone] [place], [place] [id number] Social History Tobacco Use Types Packs/Day Years [...]
--- OUTSIDE RECORDS SUMMARY | 2022-08-15 11:32 | XMS_ITS | Encounter Summary ---
:1940 Author Organization [place] Address [address] [place] [address] Care Team Providers Name Role Phone Primary Dr, Unknown Primary Care Provider Unavailable Reason for Visit Reason Comments Surgical Followup bilat infections Encounter Details Date Type Department Care Team Description 10/05/2012 Office Visit [facility] Sal Chaparro [facility] are following Clinic [place] F, DPM surgery of the [address] [place] [address] musculoskeletal system, [place], [place] E NEC (Primary Dx) [phone] [place] [address] [place], [place] [address] Social History Tobacco Use Types [...] Comments Blood Pressure 136/80 10/05/2012 12:04 PM HAND STEMMER Pulse 60 10/05/2012 12:04 PM HAND STEMMER Temperature 36.8 ??C (98.2 ??F) 10/05/2012 12:04 PM HAND STEMMER Respiratory Rate - - Oxygen Saturation - - Inhaled Oxygen Concentration - - Weight 93 kg (205 lb) 10/05/2012 12:04 PM HAND STEMMER Height 170.2 cm (5' 7) 10/05/2012 12:04 PM HAND STEMMER Body Mass Index 32.11 10/05/2012 12:04 PM HAND STEMMER documented in this encounter Progress Notes Sal [...] or concerns and follow-up in 1-2 wks. STEMMER documented in this encounter Plan of Treatment Not on filedocumented as of this encounter Procedures Procedure Name Priority Date/Time Associated Diagnosis Comme nts CBC WITH PLATELETS & Routine 10/05/2012 12:21 Aftercare follow ing Results for this DIFFERENTIAL PM HAND STEMMER surgery of the procedure are in musculoskeletal system, the results NEC section. URIC ACID Routine 10/05/2012 12:21 Aftercare following Resu lts for this PM HAND STEMMER surgery of the procedure are in musculoskeletal system, the results NEC section. BASIC METABOLIC Routine 10/05/2012 12:21 Aftercare following R esults for this PANEL PM HAND STEMMER surgery of the procedure are in musculoskeletal system, the results NEC section. WOUND CULTURE Routine 10/05/2012 12:20 Aftercare following Res ults for this AEROBIC BACTERIAL PM HAND STEMMER surgery of the procedur e are in musculoskeletal system, the results NEC section. documented in this encounter Results (ABNORMAL) Basic metabolic panel (Ca, Cl, CO2, Creat, Gluc, K, Na, BUN) (10/05/2012 12:21 PM HAND STEMMER) Analysis Performed At Patho logist Time Signature Sodium 140 133 - 144 [place] mmol/L [facility] Potassium 4.8 3.4 - 5.3 [place] mmol/L [facility] Chloride 103 94 - 109 [place] mmol/L [facility] Carbon Dioxide 25 20 - 32 [place] mmol/L [facility] Anion Gap 12 6 - 17 [place] mmol/L [facility] Glucose 108 (H) 60 - 99 [place] mg/dL [facility] Urea Nitrogen 23 7 - 30 [place] mg/dL [facility] Creatinine 1.41 (H) 0.66 - [facility] 1.25 mg/dL [facility] GFR Estimate 50 (L) >60 [place] mL/min/1.7 [facility] m2 LAB GFR Estimate If 60 (L) >60 [place] Black mL/min/1.7 [facility] m2 LAB Calcium 9.5 8.5 - 10.4 [place] mg/dL [facility] Specimen Anatomical Collection Method Collection Time Receive d Time (Source) Location / / Volume Laterality Blood specimen 10/05/2012 12:21 2 (specimen) PM HAND STEMMER 12:22 PM HAND STEMMER Sal Chaparro DPM LAB - BLOOD ORDERABLES Performing Organization Address City/State/ZIP Code Phon e Number [address] [address] [facility] (ABNORMAL) CBC with platelets and differential (10/05/2012 12:21 PM HAND STEMMER) [facility] Method Time Signature WBC 7.8 4.0 - [facility] 11.0 [facility] 10e9/L CLINIC LAB RBC Count 4.45 4.4 - 5.9 [facility] 10e12/L [facility] Hemoglobin 14.6 13.3 - [facility] 17.7 g/dL [facility] Hematocrit 43.2 40.0 - [facility] 53.0 % [facility] MCV 97 78 - 100 [facility] fl [facility] MCH 32.8 26.5 - [facility] 33.0 pg [facility] MCHC 33.8 31.5 - [facility] 36.5 g/dL [facility] RDW 12.9 10.0 - [facility] 15.0 % [facility] Platelet Count 152 150 - 450 [place] 10e9/L [facility] Diff Method Automated [place] Method [facility] % Neutrophils 62.1 40 - 75 % [facility] % Lymphocytes 18.9 (L) 20 - 48 % [facility] % Monocytes 13.4 (H) 0 - 12 % [facility] % Eosinophils 5.2 0 - 6 % [facility] % Basophils 0.4 0 - 2 % [facility] Absolute 4.9 1.6 - 8.3 [place] Neutrophil 10e9/L [facility] Absolute 1.5 0.8 - 5.3 [place] Lymphocytes 10e9/L [facility] Absolute 1.1 0.0 - 1.3 [place] Monocytes 10e9/L [facility] Absolute 0.4 0.0 - 0.7 [place] Eosinophils 10e9/L [facility] Absolute 0.0 0.0 - 0.2 [place] Basophils 10e9/L [facility] Specimen Anatomical Collection Method Collection Time Receive d Time (Source) Location / / Volume Laterality Blood specimen 10/05/2012 12:21 2 (specimen) PM HAND STEMMER 12:22 PM HAND STEMMER Sal Chaparro [facility] - BLOOD ORDERABLES Performing Organization Address City/[facility]/ZIP Code Phon e Number [facility] [id number] [place] [address] [facility] Uric acid (10/05/2012 12:21 PM HAND STEMMER) P athologist Signature Uric Acid 7.1 3.5 - 8.5 [facility] mg[facility] LAB Specimen Anatomical Collection Method Collection Time Receive d Time (Source) Location / / Volume Laterality Blood specimen 10/05/2012 12:21 2 (specimen) PM HAND STEMMER 12:22 PM HAND STEMMER Sal Chaparro DP LAB - BLOOD ORDERABLES Performing Organization Address [facility] Phon e Number [facility] [address] [place] [address] [facility] Wound culture (10/05/2012 12:20 PM HAND STEMMER) [facility] Method Time Signature Specimen Other [facility] [place] [facility] Culture Micro No growth [facility] MICROBIOLOGY Micro Report FINAL [facility] Status 10/07/2012 MICROBIOLOGY Specimen Anatomical Collection Method Collection Time Receive d Time (Source) Location / / Volume Laterality Specimen from 10/05/2012 12:20 10/05/2012 wound (specimen) PM HAND STEMMER 12:41 PM CS T Sal [facility] - MICRO GENERAL ORDERABL ES Performing Organization Address City/State/ZIP Code Phon e Number [address] LAB [facility] MICROBIOLOGY documented in this encounter Visit Diagnoses Diagnosis Aftercare following surgery of the muscu loskeletal system, NEC - Primary documented in this encounter Care Teams Load Planner Relationship Specialty Start Date End Date Primary Dipak Kasper, PCP - General 09/21/1204/18 documented as of this encounter
--- OUTSIDE RECORDS SUMMARY | 2022-08-15 11:32 | XMS_ITS | Encounter Summary ---
:1940 Author Organization [place] Address [address] [place] [address] Care Team Providers Name Role Phone Primary Dr, Unknown Primary Care Provider Unavailable Reason for Visit Reason Onset Date Comments Call To Schedule Appointment 10/08/2012 Encounter Details Date Type Department Care Team Description 10/08/2012 Telephone [facility] Sal Chaparro, Call To Schedule [address] [facility] [place] [address] 1021 [facility] [phone] [facility] [address] [place], [place] [address] (Wo rk) Social History Tobacco Use Types [...] Is scheduled for 10/22/12. Marianne Kim RN CH LECTURER Telephone Encounter - Sal Chaparro, DPM - 10/08/2012 10:28 AM FRENCH LECTURER Marianne, Would recommend F/U appt either Dr. Nesbitt or myself in 2-3 wks. CH LECTURER Telephone Encounter - Brittany Phan - 10/08/2012 10:08 AM CST Pt no showed appt today and you are off next week do you want him to f/u with another provider or see you the following week? CH LECTURER Telephone Encounter - Nelida Davalos - 10/08/2012 7:53 AM CST Patient was told to schedule an appointment two weeks after operation which would be on ThursdayOctober 22. Dr. Chaparro stated he would like to see patient exactly two weeks after operation and to fit him into the schedule. Please contact patient to schedule appointment. Thank you, Nelida Lopez Central Scheduling CH LECTURER documented in this encounter Plan of Treatment Not on filedocumented as of this encounter Visit Diagnoses Not on filedocumented in this encounter Care Teams Advertising Dispatch Clerks Supervisor Relationship Specialty Start Date End Date Primary Dipak Kasper MD PCP - General 09/21/1204/18 documented as of this encounter
--- OUTSIDE RECORDS SUMMARY | 2022-08-15 11:32 | XMS_ITS | Encounter Summary ---
:1940 Author Organization [place] Address [address] [place] [address] Care Team Providers Name Role Phone Unavailable Primary Care Provider Unavailable Reason for Visit Reason Comments Surgical Followup 02/06 left foot post op. Encounter Details Date Type Department Care Team Description 06/04/2011 Office Visit [facility] Sal Chaparro aftercare (Primary Dx); Clinic Yumiko Castellanos DPM [place] [address] [place] [address] [facility] [place] [phone] [place] [address] Social History Tobacco Use Types [...]
--- OUTSIDE RECORDS SUMMARY | 2022-08-15 11:32 | XMS_ITS | Encounter Summary ---
:1940 Author Organization [place] Address [address] [place] [address] Care Team Providers Name Role Phone Unavailable Primary Care Provider Unavailable Reason for Visit Reason Onset Date Comments Patient Inquiry 02/19/2011 [facility] and Creat risi ng Encounter Details Date Type Department Care Team Description 02/19/2011 Telephone [facility] Sal Chaparro Pat iestar Inquiry ([facility] DPM and Creat rising) [address] [place] [address] [facility] [address] [phone] Social History Tobacco Use Types Packs/Day Years [...] and call daughter Raquel with plan @ [phone]. Thanks, Aruna Arriaza RN documented in this encounter Plan of Treatment Not on filedocumented as of this encounter Visit Diagnoses Not on filedocumented in this encounter
--- OUTSIDE RECORDS SUMMARY | 2022-08-15 11:32 | XMS_ITS | Encounter Summary ---
:1940 Author Organization [place] Address [address] [place] [address] Care Team Providers Name Role Phone Unavailable Primary Care Provider Unavailable Encounter Details Date Type Department Care Team Description 02/06/2011 Results [facility] Tiffanie me[place], Sal Castellanos, [facility] Results [address] [place], [place] [address] (Wo rk) Social History Tobacco [...]
--- OUTSIDE RECORDS SUMMARY | 2022-08-15 11:32 | XMS_ITS | Encounter Summary ---
:1940 Author Organization [place] Address [address] [place] [address] Care Team Providers Name Role Phone Unavailable Primary Care Provider Unavailable Reason for Visit Reason Comments Surgical Followup left foot post op. Encounter Details Date Type Department Care Team Description 09/17/2011 Office Visit [facility] aftercare [facility] [place] ADALID Castellanos (Primary Dx) [address] [place] [phone] [place] [address] Social History Tobacco Use Types [...] a regular shoe on lt. F/U prn. URIC ACID PLANT OPERATOR documented in this encounter Nursing Notes 09/17/2011 [...] Surgery aftercar e Results for this VIEWS SULFURIC ACID PLANT OPERATOR procedure are i n the results section. documented in this encounter Results X-ray lt Foot G/E 3 vws* (09/17/2011 9:01 AM SULFURIC ACID PLANT OPERATOR) Anatomical Region Laterality Modality Foot, Ankle Left Other Specimen (Source) Anatomical Collection Method Collection Time Re ceived Time Location / / Volume Laterality 09/17/2011 9:01 AM SULFURIC ACID PLANT OPERATOR Impressions 09/17/2011 11:23 AM SULFURIC ACID PLANT OPERATOR FOOT THREE OR MORE VIEWS LEFT Sep [...]
--- OUTSIDE RECORDS SUMMARY | 2022-08-15 11:32 | XMS_ITS | Encounter Summary ---
:1940 Author Organization [place] Address [address] [place] [address] Care Team Providers Name Role Phone Primary Dr, Unknown Primary Care Provider Unavailable Reason for Visit Reason Comments Surgical Followup bilateral post op Encounter Details Date Type Department Care Team Description 10/22/[address] [facility] Sal Chaparro Afterca re following Yariel Castellanos DPM surgery of the [address] [employer] [address] [place] [address] musculoskeletal system, [place] [address] E NEC (Primary Dx) [phone] [address] [place], [place] [address] Social History Tobacco Use Types [...] 93 kg (205 lb) 10/22/2012 9:14 AM RADIO PROGRAM CHECKER Height 170.2 cm (5' 7) 10/22/2012 9:14 AM RADIO PROGRAM CHECKER Body Mass Index 32.11 10/22/2012 9:14 AM RADIO PROGRAM CHECKER documented in this encounter Progress Notes [...] questions or concerns and follow-up in prn. O PROGRAM CHECKER documented in this encounter Nursing Notes [...] Primary documented in this encounter Care Teams Underwriting Technician Relationship Specialty Start Date End Date Primary Dipak Kasper MD PCP - General 09/21/1204/18 documented as of this encounter
--- OUTSIDE RECORDS SUMMARY | 2022-08-15 11:32 | XMS_ITS | Encounter Summary ---
:1940 Author Organization [place] Address [address] [place] [address]. [place] [address] Care Team Providers Name Role Phone Primary Dr, Unknown Primary Care Provider Unavailable Encounter Details Date Type Department Care Team Description 09/30/2012 Anesthesia Event [facility] Viraj Silva PeriOp Letty Tejeda MD [address] [place] [address] ANESTHESIA [phone] [facility] [address] [place], [place] [address] (Wo rk) Anesthesia Record [...] Type Details Placement Removal Peripheral IV 09/30/12; (NON PROFIT FINANCIAL CONTROLLER); 20 09/30/12 0000 by 09/30/12 14 45 [...] 97.00%. Additional Comments: Doing Well. Euvolemic. AKollitzMD TESTING TECHNICIAN Anesthesia Preprocedure Evaluation - Damian Silva MD [...] benefits and alternatives discussed with: patient or security systems sales representative. Possibility of blood products discussed. History & Physical Review History and physical reviewed; no interval change. . TESTING TECHNICIAN documented in this encounter Miscellaneous Notes Anesthesia Care Transfer Note - Lety Guzman APRN CRNA - 09/30/2012 12:47 PM CST Anesthesia Care Transfer Note Patient: Speedy Hendricks Transferred to: Phase II Patient vital signs: stable Airway: none To phase 2. criteria met. TESTING TECHNICIAN documented in this encounter Plan of Treatment Not on filedocumented as of this encounter Visit Diagnoses Not on filedocumented in this encounter Administered Medications Inactive Administered Medications - up to 3 most recent administrations Medication Order MAR Action Action Date Dose Rate Site clindamycin (CLEOCIN) IVPB 900 mg Given 09/30/2012 11:52 AM FUEL TESTING TECHNICIAN 900 mg Routine, 900 mg, Intravenous, EVERY 6 HOURS PRN, Starting on Yesenia 09/30/12 at 1034, Intra-Op Dose. Give every 6 hours while patient in surgery, starting 6 hours after pre-op dose. DO NOT GIVE intra-op dose if CrCl < 10 mL/min (on dialysis). If CrCL < 50 mL/min, double the time interval between doses., Pre-procedure fentaNYL (SUBLIMAZE) injection Given 09/30/2012 12:15 PM FUEL TESTING TECHNICIAN 50 mcg PRN, moderate to severe pain, Starting on Yesenia 09/30/12 at 1215, Anesthesia Intra-op lactated ringers infusion New Bag 09/30/2012 11:39 AM FUEL TESTING TECHNICIAN mL Intravenous, CONTINUOUS PRN, Anesthesia Intra-op, Starting on Yesenia 09/30/12 at 1139, Until Yesenia 09/30/12 at 1248 midazolam (VERSED) injection Given 09/30/2012 11:54 AM FUEL TESTING TECHNICIAN 2 mg PRN, anxiety, Starting on Yesenia 09/30/12 at 1145, Anesthesia Intra-op Given 09/30/2012 11:45 AM FUEL TESTING TECHNICIAN 2 mg propofol (DIPRIVAN) Rate/Dose 09/30/2012 12:11 20 mcg/kg/min 11.2 mL /hr injection Change PM FUEL TESTING TECHNICIAN CONTINUOUS PRN, Starting on Yesenia 09/30/12 at 1202, Anesthesia Intra-op Rate/Dose Change 09/30/2012 12:04 PM FUEL TESTING TECHNICIAN 10 mcg/kg/min 5.6 mL/hr New Bag 09/30/2012 12:02 PM FUEL TESTING TECHNICIAN 55 mcg/kg/min 30.7 mL/hr documented in this encounter Care Teams Lofter Relationship Specialty Start Date End Date Primary Dipak Kasper, PCP - General 09/21/1204/18 documented as of this encounter
--- OUTSIDE RECORDS SUMMARY | 2022-08-15 11:32 | XMS_ITS | Encounter Summary ---
:1940 Author Organization [place] Address [facility] [place] [address] Care Team Providers Name Role Phone Unavailable Primary Care Provider Unavailable Reason for Visit Reason Comments Surgical Followup 02/06/11 post op left foot wi th hardware. pt is having pain. Encounter Details Date Type Department Care Team Description 07/30/[address] [facility] Sal Chaparro pa in (Primary Dx); Yariel Castellanos DPM Enthesopathy of unspecified site [address] [place] [address] E [phone] [facility] [address] [place], [place] [address] Social History Tobacco Use Types [...] Procedure Time: 30 min Anesthesia: MAC Location: [facility] Pre-Operative Medications: Clindamycin 900 mg IV pre-op Special Instrumentation: Synthes mini locking plate screw school boat driver documented in this encounter Nursing Notes [...]
--- OUTSIDE RECORDS SUMMARY | 2022-08-15 11:32 | XMS_ITS | Encounter Summary ---
:1940 Author Organization [place] Address [address] [facility] [place] [address] Care Team Providers Name Role Phone Unavailable Primary Care Provider Unavailable Reason for Visit Reason Comments Surgical Followup 02/06 left foot surgery. Seco nd metatarsal fracture nonunion, left foot Encounter Details Date Type Department Care Team Description 04/30/2011 Office Visit [facility] aftercare Clinic Yumiko Castellanos DPM (Primary Dx) [address] [place] [address] [place] [address] [phone] Social History Tobacco Use Types Packs/Day Years [...]
--- OUTSIDE RECORDS SUMMARY | 2022-08-15 11:32 | XMS_ITS | Encounter Summary ---
:1940 Author Organization [place] Address [address] [place] [address] Care Team Providers Name Role Phone Primary Dr, Unknown Primary Care Provider Unavailable Reason for Visit Auth/Cert - Closed Specialty Diagnoses / Procedures Referred By Contact Refer red To Contact Surgery Diagnoses painful internal fixation left foot Rh Periop Services Procedures REMOVE HARDWARE FOOT [address] [place], [place] [address] Phone: Fax: Referral ID Status Reason Start Date Expiration Date Visits Requ ested Visits Authorized [id number] Closed 1 1 Encounter Details Date Type Department Care Team Description 09/30/2012 Surgery [facility] Daniel Trujillo har dware removel left [place] PeriOp Servic es DPM foot [address] [facility] [address] [place] [facility] E [facility] 100 [address] [place], [place] [id number] (Wo rk) Surgery Details Date/Time Status Location [...] Comments Blood Pressure 137/81 09/30/2012 10:30 AM DIRECTOR PROJECT MANAGEMENT Pulse - - Temperature 35.9 ??C (96.6 ??F) 09/30/2012 10:24 AM DIRECTOR PROJECT MANAGEMENT Respiratory Rate 20 09/30/2012 10:24 AM DIRECTOR PROJECT MANAGEMENT Oxygen Saturation 98% 09/30/2012 10:24 AM DIRECTOR PROJECT MANAGEMENT Inhaled Oxygen Concentration - - Weight 93 kg (205 lb) 09/30/2012 10:24 AM DIRECTOR PROJECT MANAGEMENT Height 170.2 cm (5' 7) 09/30/2012 10:24 AM DIRECTOR PROJECT MANAGEMENT Body Mass Index 32.11 09/30/2012 10:24 AM DIRECTOR PROJECT MANAGEMENT documented in this encounter Discharge Instructions Discharge [...] DR. DANIEL TRUJILLO M.D. CLINIC PHONE NUMBER: [phone]. CTOR PROJECT MANAGEMENT documented in this encounter Medications at Time [...] Trujillo DPM - 09/23/2012 4:09 PM CST CTOR PROJECT MANAGEMENT documented in this encounter Nursing Notes Iwona Ruiz RN - 09/30/2012 12:33 PM CST First Panel started at 1210 and ended at 1230. Second panel started at 1230 and ended at 1237. Jen Ruiz RN CTOR PROJECT MANAGEMENT Iwona Ruiz RN - 09/30/2012 12:22 PM CST Patient did not want his hardware that was removed from procedure on 09/30/[address] Trujillo. Jen Ruiz RN CTOR PROJECT MANAGEMENT documented in this encounter OR Notes OR Anesthesia - Daniel Trujillo DPM - 10/01/2012 9:43 AM CST CTOR PROJECT MANAGEMENT documented in this encounter Miscellaneous Notes Op [...] DPM MT: [id number] Name: ELDA HENDRICKS Account: [id number] : 1940 Procedure Date: 09/30/2012 Document: [id number] cc: Ramiro Walker MD CTOR PROJECT MANAGEMENT Brief Op Note - Daniel Trujillo DPM - 09/30/2012 1:01 PM CST [facility] Podiatry/Foot and Ankle Surgery Brief Operative Note Pre-operative diagnosis: Painful Internal Fixation left foot Painful recurrence of toenail right great toe Post-operative diagnosis same Procedure: Procedure(s): Hardware Removal left foot - Deep Surgical matrixectomy right great toe Surgeon: DANIEL TRUJILLO DPM Assistants(s): Anesthesia: MAC Estimated blood loss: 5 cc CTOR PROJECT MANAGEMENT documented in this encounter Plan of Treatment Not on filedocumented as of this encounter Procedures Procedure Name Priority Date/Time Associated Diagnosis Comme nts XR FOOT PORT LEFT 3 Routine 09/30/2012 1:44 PM Re sults for this VIEWS DIRECTOR PROJECT MANAGEMENT procedure are i n the results section. EXCISION, TOENAIL 09/30/2012 11:41 AM painful internal DIRECTOR PROJECT MANAGEMENT fixation left foot Special Needs # Hx MRSA REMOVAL, HARDWARE, FOOT 09/30/2012 11:41 AM DIRECTOR PROJECT MANAGEMENT painfu l internal fixation left foot Special Needs # Hx MRSA EKG 12-LEAD, TRACING ONLY Routine 09/30/2012 11:38 AM DIRECTOR PROJECT MANAGEMENT Results for this procedure are in the resu lts section. HIM ECG SCAN Routine 09/30/2012 documented in this encounter Results X-ray LEFT Foot 3 vw port (09/30/2012 1:44 PM DIRECTOR PROJECT MANAGEMENT) Anatomical Region Laterality Modality Left Foot Left Other Specimen (Source) Anatomical Collection Method Collection Time Re ceived Time Location / / Volume Laterality 09/30/2012 1:44 PM DIRECTOR PROJECT MANAGEMENT Impressions 10/01/2012 10:47 AM DIRECTOR PROJECT MANAGEMENT IMPRESSION: Postoperative and degenerative change. No acute abnormality. ODILON RANDOLPH MD Narrative 10/01/2012 10:47 AM DIRECTOR PROJECT MANAGEMENT LEFT FOOT THREE OR MORE VIEWS PORTABLE [...] EKG 12-lead, tracing only (09/30/2012 11:38 AM DIRECTOR PROJECT MANAGEMENT) Component Value Ref Range Test Analysis Performed Pathologis t Method Time At Signature Ventricular Rate 64 BPM RADIOLOGY RESULTS Atrial Rate 64 BPM RADIOLOGY RESULTS OR Interval 154 ms RADIOLOGY RESULTS QRS Duration 80 ms RADIOLOGY RESULTS QT 410 ms RADIOLOGY RESULTS QTc 422 ms RADIOLOGY RESULTS P [place] -1 degrees RADIOLOGY RESULTS R AXIS -9 degrees RADIOLOGY RESULTS T [place] -7 degrees RADIOLOGY RESULTS Interpretation Sinus rhythm [...] / / Volume Laterality 09/30/2012 11:38 AM DIRECTOR PROJECT MANAGEMENT Doctor Unknown ECG ORDERABLES Performing Organization Address [...] 15 mLs Operative injection 0.5% (PF) PM DIRECTOR PROJECT MANAGEMENT Site/Surgical S ite PRN, Starting on Yesenia 09/30/12 at 1238, Intra-procedure fentaNYL (SUBLIMAZE) injection 25-50 mcg Given 09/30/2012 2:16 PM DIRECTOR PROJECT MANAGEMENT 50 mcg 25-50 mcg, Intravenous, EVERY 2 MIN PRN, other, acute pain, Starting on Yesenia 09/30/12 at 1251, MAX cumulative dose = 250 mcg. Use Fentanyl initially, as a short acting agent for acute pain control. If insufficient, or a longer acting agent is needed, begin Morphine or Hydromorphone if ordered., PACU Given 09/30/2012 1:33 PM DIRECTOR PROJECT MANAGEMENT 50 mcg HYDROcodone-acetaminophen 5-325 MG per Given 09/30/2012 2:16 PM DIRECTOR PROJECT MANAGEMENT 1 tablet tablet 1-2 tablet 1-2 tablet, Oral, ONCE, On Yesenia 09/30/12 at 1330, For 1 dose, One time prior to discharge., Post-procedure lactated ringers infusion New Bag 09/30/2012 1:33 PM DIRECTOR PROJECT MANAGEMENT 1,000 mLs 100 mL/hr at 100 mL/hr, Intravenous, CONTINUOUS, Continue until IV catheter is weaned, PACU, Starting on Yesenia 09/30/12 at 1300, Until Yesenia 09/30/12 at 1723 lidocaine (PF) (XYLOCAINE) Given 09/30/2012 12:40 PM 4 mLs Operative Site/Surgical 1 % injection DIRECTOR PROJECT MANAGEMENT Site PRN, Starting on Yesenia 09/30/12 at 1238, Intra-procedure sodium chloride 0.9% Given 09/30/2012 12:41 PM 100 mLs Operative Site/Surgical (bottle) irrigation DIRECTOR PROJECT MANAGEMENT Site PRN, Starting on Yesenia 09/30/12 at 1241, Area to irrigate and instructions: ., Intra-procedure documented in this encounter Active and Recently Administered Medications Times are shown in DIRECTOR PROJECT MANAGEMENT. Scheduled Medication Order 09/28/2012 09/29/2012 09/30/2012 HYDROcodone-acetaminophen [...] 1152 (Given - Provider: Lety Guzman APRN FOOD SERVICE CLERK) Routine, 900 mg, Intravenous, EVERY 6 HO [...] Intra-procedure documented in this encounter Care Teams Sapphire Stylus Grinder Relationship Specialty Start Date End Date Primary Dipak Kasper MD PCP - General 09/21/1204/18 documented as of this encounter
--- OUTSIDE RECORDS SUMMARY | 2022-08-15 11:32 | XMS_ITS | Encounter Summary ---
:1940 Author Organization [place] Address [address] [place] [address] Care Team Providers Name Role Phone Unavailable Primary Care Provider Unavailable Reason for Visit Reason Onset Date Comments Surgical Followup 02/08/2011 Encounter Details Date Type Department Care Team Description 02/08/2011 Telephone [facility] Sal Chaparro, Surgical Followup Ajo DPM [address] [place] [address] [facility] 100 [place], [place] [address] (Wo rk) Social History Tobacco Use Types Packs/Day Years Used Date Smoking Tobacco: Never Assessed Sex Assigned at Date Recorded Not on file documented as of this encounter Miscellaneous Notes Telephone Encounter - April Membreno - 02/12/2011 9:22 AM CDT Follow up visit scheduled with Dr. Chaaprro on 02/14/11 @ 3:15. Telephone Encounter - [...]
--- OUTSIDE RECORDS SUMMARY | 2022-08-15 11:32 | XMS_ITS | Encounter Summary ---
:1940 Author Organization [facility] Address [address] [place] [address] Care Team Providers Name Role Phone Primary Dr, Dipak WELSH Primary Care Provider Unavailable Reason for Visit Reason Onset Date Comments Patient/info Update 10/04/2012 Encounter Details Date Type Department Care Team Description 10/04/2012 Telephone [facility] Sal Chaparro, Patient/info Update Yumiko WELSH MD [address] [facility] [address] [facility] [phone] [place] [phone] (Wo rk) Social History Tobacco Use Types Packs/Day Years Used Date Smoking Tobacco: Former Comments: quit 1984 Alcohol Use Standard Drinks/Week Comments Yes 0 (1 standard drink = 0.6 oz pure alcoho l) 10 per week Sex Assigned at Date Recorded Not on file documented as of this encounter Miscellaneous Notes Telephone Encounter - Sal Chaparro DPM - 10/05/2012 11:14 AM NUCLEAR MONITORING TECHNICIAN Spoke w/ pt and we will check him today (10/05/12) @ 11:30 EAR MONITORING TECHNICIAN Telephone Encounter - Amber Mead - 10/04/2012 11:[address] Dr[address] Chaparro, GALILEA. Please read. Message below. Let me know if I can assist at all. Amber Mead CMA ([facility]) EAR MONITORING TECHNICIAN Telephone Encounter - Sandra Melgar - 10/04/2012 10:[address] Nesbitt has placed this rx. Rx faxed. Jaime Melgar CMA ([facility]) EAR MONITORING TECHNICIAN Telephone Encounter - Amber Mead - 10/04/2012 [...] but patient feels lousy Spoke with DPM implementation services analyst, Dr. Green. He recommended Bactrim DS BID x 10 days Called RX into [facility] per patient's daughter request. Called Raquel back and left message on cell phone ([phone]), offered 230 appointment in [place] with Dr. Green if would like. Otherwise, f/u with Dr. Chaparro this week. Patient's daughter is requesting refill of [place] 5-325 - , can you approve and I can call in? Amber Mead CMA ([facility]) EAR MONITORING TECHNICIAN documented in this encounter Plan of Treatment Not on filedocumented as of this encounter Visit Diagnoses Diagnosis Ingrowing nail - Primary Pain in limb documented in this encounter Care Teams Data Entry 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
--- OUTSIDE RECORDS SUMMARY | 2022-08-15 11:32 | XMS_ITS | Encounter Summary ---
:1940 Author Organization [place] Address [address] [place] [address] Care Team Providers Name Role Phone Primary Dipak Kasper MD Primary Care Provider Unavailable Celina Coley [facility] Primary Care Provider [phone] Jon White MD Unavailable [phone] Ramiro Loco MD Unavailable Encounter Details Date Type Department Care Team Description 04/18/2014 [facility] Provider, [facility] Health Information Management [address] [place] [address] [address] [place] [address] Social History Tobacco Use Types Packs/Day Years [...] as of this encounter Care Teams Student Officer Relationship Specialty Start Date End Date Primary Dipak Kasper MD PCP - General 09/21/1204/18 Celina Coley PCP - General Family Practice 05/05/17 05/11/[address] [address] Kehnide Portillo PCP - General 05/12/17 [place] [address] [place], [place] [phone] Jon White Assigned Surgical Provider 08/10/20 12/08/20 MD [place] [address] [place], [place] [phone] Ramiro Loco MD Assigned Heart and 08/10/20 05/11/21 [address] [place] [address] Vascular Provider [place]LANDO GORDON [address] documented as of this encounter
--- OUTSIDE RECORDS SUMMARY | 2022-08-15 11:32 | XMS_ITS | Encounter Summary ---
:1940 Author Organization [place] Address [address] [place] [address] Care Team Providers Name Role Phone Primary Dr, Unknown Primary Care Provider Unavailable Reason for Visit Auth/Cert - Closed Specialty Diagnoses / Procedures Referred By Contact Refer red To Contact Surgery Diagnoses painful internal fixation left foot Rh Periop Services Procedures REMOVE HARDWARE FOOT [address] [place], [place] [address] Phone: Fax: Referral ID Status Reason Start Date Expiration Date Visits Requ ested Visits Authorized [id number] Closed 1 1 Encounter Details Date Type Department Care Team Description 09/30/2012 Hospital Encounter [facility] Alvin Trujillo rcare following Andres Castellanos, ADALID surgery of the PreOP/PostOP [address] [facility], [address] (Primary Dx) [address] [place] [address] [phone] Social History Tobacco Use Types Packs/Day Years Used Date Smoking Tobacco: Former Comments: quit 1984 Alcohol Use Standard Drinks/Week Comments Yes 0 (1 standard drink = 0.6 oz pure alcoho l) 10 per week Sex Assigned at Date Recorded Not on file documented as of this encounter Last Filed Vital Signs Vital Sign Reading Time Taken Comments Blood Pressure 130/79 09/30/2012 2:45 PM TRUCK JUMPER Pulse - - Temperature 36.2 ??C (97.2 ??F) 09/30/2012 2:45 PM TRUCK JUMPER Respiratory Rate 16 09/30/2012 2:45 PM TRUCK JUMPER Oxygen Saturation 98% 09/30/2012 2:45 PM TRUCK JUMPER Inhaled Oxygen Concentration - - Weight 93 kg (205 lb) 09/30/2012 10:24 AM TRUCK JUMPER Height 170.2 cm (5' 7) 09/30/2012 10:24 AM TRUCK JUMPER Body Mass Index 32.11 09/30/2012 10:24 AM TRUCK JUMPER documented in this encounter Discharge Instructions Discharge [...] DR. SAL TRUJILLO M.D. CLINIC PHONE NUMBER: [phone]. K JUMPER documented in this encounter Medications at Time [...] Trujillo DPM - 09/23/2012 4:09 PM CST K JUMPER documented in this encounter Nursing Notes Iwona Ruiz RN - 09/30/2012 12:33 PM CST First Panel started at 1210 and ended at 1230. Second panel started at 1230 and ended at 1237. Jen Ruiz RN K JUMPER Iwona Ruiz RN - 09/30/2012 12:22 PM CST Patient did not want his hardware that was removed from procedure on 09/30/[address] Trujillo. Jen Ruiz RN K JUMPER documented in this encounter OR Notes OR Anesthesia - Sal Trujillo DPM - 10/01/2012 9:43 AM CST K JUMPER documented in this encounter Miscellaneous Notes Op [...] DPM MT: #[id number] Name: ELDA HENDRICKS Account: [id number] : 1940 Procedure Date: 09/30/2012 Document: [id number] cc: Ramiro Walker MD K JUMPER Brief Op Note - Sal Trujillo DPM - 09/30/2012 1:01 PM CST [facility] Podiatry/Foot and Ankle Surgery Brief Operative Note Pre-operative diagnosis: Painful Internal Fixation left foot Painful recurrence of toenail right great toe Post-operative diagnosis same Procedure: Procedure(s): Hardware Removal left foot - Deep Surgical matrixectomy right great toe Surgeon: SAL TRUJILLO DPM Assistants(s): Anesthesia: MAC Estimated blood loss: 5 cc K JUMPER documented in this encounter Plan of Treatment Not on filedocumented as of this encounter Procedures Procedure Name Priority Date/Time Associated Diagnosis Comme nts XR FOOT PORT LEFT 3 Routine 09/30/2012 1:44 PM Re sults for this VIEWS TRUCK JUMPER procedure are i n the results section. EXCISION, TOENAIL 09/30/2012 11:41 AM painful internal TRUCK JUMPER fixation left foot Special Needs 5'# Hx MRSA REMOVAL, HARDWARE, FOOT 09/30/2012 11:41 AM TRUCK JUMPER painfu l internal fixation left foot Special Needs 5# Hx MRSA EKG 12-LEAD, TRACING ONLY Routine 09/30/2012 11:38 AM TRUCK JUMPER Results for this procedure are in the resu lts section. HIM ECG SCAN Routine 09/30/2012 documented in this encounter Results X-ray LEFT Foot 3 vw port (09/30/2012 1:44 PM TRUCK JUMPER) Anatomical Region Laterality Modality Left Foot Left Other Specimen (Source) Anatomical Collection Method Collection Time Re ceived Time Location / / Volume Laterality 09/30/2012 1:44 PM TRUCK JUMPER Impressions 10/01/2012 10:47 AM TRUCK JUMPER IMPRESSION: Postoperative and degenerative change. No acute abnormality. ODILON RANDOLPH MD Narrative 10/01/2012 10:47 AM TRUCK JUMPER LEFT FOOT THREE OR MORE VIEWS PORTABLE [...] EKG 12-lead, tracing only (09/30/2012 11:38 AM TRUCK JUMPER) Component Value Ref Range Test Analysis Performed Pathologis t Method Time At Signature Ventricular Rate 64 BPM RADIOLOGY RESULTS Atrial Rate 64 BPM RADIOLOGY RESULTS ME Interval 154 ms RADIOLOGY RESULTS QRS Duration 80 ms RADIOLOGY RESULTS QT 410 ms RADIOLOGY RESULTS QTc 422 ms RADIOLOGY RESULTS P Unity -1 degrees RADIOLOGY RESULTS R AXIS -9 degrees RADIOLOGY RESULTS T Unity -7 degrees RADIOLOGY RESULTS Interpretation Sinus rhythm [...] / / Volume Laterality 09/30/2012 11:38 AM TRUCK JUMPER Doctor Unknown MD ECG ORDERABLES Performing Organization Address City/State/ZIP Code Phon e Number RADIOLOGY RESULTS ECG - HIM ECG Scan (09/30/2012) Narrative This result has an attachment that is no t available. Sal Trujillo DPM ECG ORDERABLES documented in this encounter Visit Diagnoses Diagnosis Aftercare following surgery of the [facility], NEC - Primary documented in this encounter Administered Medications Inactive Administered Medications - up to 3 most recent administrations Medication Order MAR Action Action Date Dose Rate Site fentaNYL (SUBLIMAZE) injection Given 09/30/2012 2:16 PM TRUCK JUMPER 50 m cg 25-50 mcg 25-50 mcg, Intravenous, EVERY 2 MIN PRN, other, acute pain, Starting on Yesenia 09/30/12 at 1251, MAX cumulative dose = 250 mcg. Use Fentanyl initially, as a short acting agent for acute pain control. If insufficient, or a longer acting agent is needed, begin Morphine or Hydromorphone if ordered., PACU Given 09/30/2012 1:33 PM TRUCK JUMPER 50 mcg HYDROcodone-acetaminophen 5-325 MG per Given 09/30/2012 2:16 PM TRUCK JUMPER 1 tablet tablet 1-2 tablet 1-2 tablet, Oral, ONCE, On Yesenia 09/30/12 at 1330, For 1 dose, One time prior to discharge., Post-procedure lactated ringers infusion New Bag 09/30/2012 1:33 PM TRUCK JUMPER 1,000 mLs 100 mL/hr at 100 mL/hr, Intravenous, CONTINUOUS, Continue until IV catheter is weaned, PACU, Starting on Yesenia 09/30/12 at 1300, Until Yesenia 09/30/12 at 1723 documented in this encounter Active and Recently Administered Medications Times are shown in TRUCK JUMPER. Scheduled Medication Order 09/28/2012 09/29/2012 09/30/2012 HYDROcodone-acetaminophen 5-325 MG per tablet 1-2 tablet (COMPLE KENAN) 1416 (Given - Provider: Nai Galarza, RN) 1-2 tablet, Oral, ONCE, On Yesenia 09/30/12 at 1330, For 1 dose, One time prior to discharge., Post-procedure Continuous Medication Order 09/28/2012 09/29/2012 09/30/2012 lactated ringers infusion (CANCELED) 1333 (New Bag - Provider: Nai Glaarza, JOSE) at 100 mL/hr, Intravenous, CONTINUOUS, C [...] Intra-procedure documented in this encounter Care Teams Coat Joiner Relationship Specialty Start Date End Date Primary Dipak Kasper MD PCP - General 09/21/1204/18 documented as of this encounter
--- OUTSIDE RECORDS SUMMARY | 2022-08-15 11:32 | XMS_ITS | Encounter Summary ---
:1940 Author Organization [place] Address [address] [place] [address] Care Team Providers Name Role Phone Unavailable Primary Care Provider Unavailable Reason for Visit Reason Comments Surgical Followup 02/06 post op left foot 2nd m etatarsal Fx. Encounter Details Date Type Department Care Team Description 03/05/2011 Office Visit [facility] Yumiko Castellanos DPM (Primary Dx) [address] [phone] [place] [address] Social History Tobacco Use Types [...]
--- OUTSIDE RECORDS SUMMARY | 2022-08-15 11:32 | XMS_ITS | Encounter Summary ---
:1940 Author Organization [place] Address [address] [place] [address] Care Team Providers Name Role Phone Primary DrDipak MD Primary Care Provider Unavailable Celina Coley Primary Care Provider [facility] Primary Care Provider [phone] Jon White MD Unavailable [phone] Ramiro Loco MD Unavailable Encounter Details Date Type Department Care Team Description 05/02/2014 Anesthesia - [facility] Zoltan Arizmendi MD [address] [place] [address] [phone] Social History Tobacco Use Types Packs/Day Years [...] as of this encounter Care Teams Advertising Strategist Relationship Specialty Start Date End Date Primary Dipak Kasper MD PCP - General 09/21/1204/18 Celina Coley PCP - General Family Practice 05/05/17 05/11/[address] [address] Kehinde Portillo PCP - General 05/12/17 [address] [place] [address] Jon White Assigned Surgical Provider 08/10/20 12/08/20 MD [address] [place], [place] [id number] Ramiro Loco MD Assigned Heart and 08/10/20 05/11/21 [address] [place] [address] Vascular Provider ORLANDO GORDON [address] documented as of this encounter
--- OUTSIDE RECORDS SUMMARY | 2022-08-15 11:32 | XMS_ITS | Encounter Summary ---
:1940 Author Organization [facility] Address [address] [place] [address] Care Team Providers Name Role Phone Unavailable Primary Care Provider Unavailable Encounter Details Date Type Department Care Team Description 02/06/2011 Operative Report [facility] Daniel Trujillo, (Automotive Parts Counter Assistant) [facility] DPM Results [address] [place], [place] [address] (Wo rk) Social History Tobacco [...] medial and laterally and with a small [place] blade, I was able to carefully dissect [...] DPM MT: [id number] Name: SPEEDY MCDUFFIE Account: [id number] : 1940 Procedure Date: 02/06/2011 Document: [id number] cc: Michelle Hedrick MD documented in this encounter Plan of Treatment Not on filedocumented as of this encounter Visit Diagnoses Not on filedocumented in this encounter
--- OUTSIDE RECORDS SUMMARY | 2022-08-15 11:32 | XMS_ITS | Encounter Summary ---
:1940 Author Organization [place] Address [address] [facility] [place] [address] Care Team Providers Name Role Phone Unavailable Primary Care Provider Unavailable Reason for Visit Reason Comments Musculoskeletal Problem pt states he broke his left great toe and 2nd toe. He is still having trouble/pain in his 2nd toe. Sx since September. Encounter Details Date Type Department Care Team Description 01/29/2011 Office Visit [facility] Sal Chaparro Fractu re, nonunion (Primary Dx); [facility] [place] F, DPM Other hammer toe (acquired); [address] Pain in so ft tissues of limb [place] [address] [place], [place] [address] [address] [place], [place] [id number] Social History Tobacco Use Types Packs/Day Years [...] 2010. Crush type injury w/ a skid fructose loader. Pt has been treated in [facility] [...]
== END 2022-06-19 08:47 | disposition home or self-care (01) ==
LOC: WOUND 08-15 11:04
PROVIDERS: PCP Family Medicine; Visit Provider Nurse Practitioner Family
DX: L89.324 Pressure ulcer of left buttock, stage 4 (principal)
CPT/HCPCS: 11042

== ENCOUNTER 2022-07-03 14:19 | Outpatient (CLI) | payer MEDICARE, BC, SELFPAY ==
--- OUTSIDE RECORDS SUMMARY | 2022-07-03 14:22 | XMS_ITS | Encounter Summary ---
:1940 Author Organization [facility] Address [address] [place] [address] Care Team Providers Name Role Phone Unavailable Primary Care Provider Unavailable Encounter Details Date Type Department Care Team Description 05/23/2022 Orders Only [facility] f Denilson Quinones MD [phone] [place] [address] [place], [place] [phone] (Wo rk) Social History Tobacco Use [...] 05/26/2022 Unless otherwise specified, test(s) performed at: [facility], [address] [place] [address], [place] [address] GENERAL INTERN: Raheem Malik M.D., Ph.D For any questions, please call customer service at FREQUENCY:OTHER Resulting Agency Comment Specimen source: Urine Denilson Holly MD LAB URINE ORDERABLES Performing Organization Address [facility] Phon e Number [facility]PS SPECTRA [facility] PATIENT INFORMATION (05/23/2022) athologist [facility] Patient BSA 1.75 sq. M. [facility] Comment: Normalized values are calculated using t he patient's actual BSA and normalized to the average BSA of 1.73m2. Specimen (Source) Anatomical Collection Method Collection Time Re ceived Time Location / / Volume Laterality 05/23/2022 05/26/2022 12:2 5 PM CDT Narrative [facility] - 05/26/2022 Unless otherwise specified, test(s) performed at: [facility], [address] [place] [address], [place] [address] GENERAL INTERN: Raheem Malik M.D., Ph.D For any questions, please call customer service at FREQUENCY:OTHER Resulting Agency Comment Specimen source: PD Fluid Denilson Holly MD LAB BLOOD ORDERABLES Performing Organization Address City/[facility] Phon e Number APS SPECTRA [...] 27 mL/min APS SPECTRA 2020 [facility] Comment: [facility] has implemented the recommended eGFR calculation that [...] 05/26/2022 Unless otherwise specified, test(s) performed at: [facility], [address] [place] [address], [place] [address] GENERAL INTERN: Raheem Malik M.D., Ph.D For any questions, please call customer service at FREQUENCY:OTHER Resulting Agency Comment Specimen source: Serum Denilson Holly MD LAB [id number] NSOLICITED RESULTS Performing Organization Address City/State/ZIP Code [...] 05/26/2022 Unless otherwise specified, test(s) performed at: [facility], [address] [place] [address], [place] [address] GENERAL INTERN: Raheem Malik M.D., Ph.D For any questions, please call customer service at FREQUENCY:OTHER Resulting Agency Comment Specimen source: PD Fluid Denilson Holly MD LAB BLOOD ORDERABLES Performing Organization Address City/State/ZIP Code Phon e Number [facility] SPECTRA [facility] documented in this encounter Visit Diagnoses Not on filedocumented in this encounter
--- OUTSIDE RECORDS SUMMARY | 2022-07-03 14:22 | XMS_ITS | Encounter Summary ---
:1940 Author Organization [facility] Address [address] [place] [address] Care Team Providers Name Role Phone Unavailable Primary Care Provider Unavailable Encounter Details Date Type Department Care Team Description 05/28/2022 Orders Only [facility] f Denilson Quinones MD [phone] [place] [address] [place], [place] [phone] (Wo rk) Social History Tobacco Use [...] MD LAB BLOOD ORDERABLES Performing Organization Address City/[facility] Code Phon e Number APS SPECTRA [facility] GFR (05/28/2022) P athologist Signature eGFR CKD-EPI CR 30 mL/min APS SPECTRA 2020 [facility] Comment: [facility] has implemented the recommended eGFR calculation that [...] 05/29/2022 Unless otherwise specified, test(s) performed at: [facility], [address] [place] [address], [place] [address] LINING CLOSER: Raheem Malik M.D., Ph.D For any questions, please call customer service at FREQUENCY:OTHER Resulting Agency Comment Specimen source: Serum Denilson Holly MD LAB [id number] NSOLICITED RESULTS Performing Organization Address City/[facility] Code Phon e Number APS SPECTRA [...] 05/29/2022 Unless otherwise specified, test(s) performed at: [facility], [address] [place] [address], [place] [address] LINING CLOSER: Raheem Malik M.D., Ph.D For any questions, please call customer service at FREQUENCY:OTHER Resulting Agency Comment Specimen source: Blood Denilson Holly MD LAB BLOOD ORDERABLES Performing Organization Address City/State/ZIP Code Phon e Number [facility]PS SPECTRA [facility] documented in this encounter Visit Diagnoses Not on filedocumented in this encounter
--- OUTSIDE RECORDS SUMMARY | 2022-07-03 14:22 | XMS_ITS | Encounter Summary ---
:1940 Author Organization [facility] Address [address] [place] [address] Care Team Providers Name Role Phone Unavailable Primary Care Provider Unavailable Encounter Details Date Type Department Care Team Description 06/18/2022 Orders Only [facility] O f Denilson Quinones MD [phone] [place] [address] [place], [place] [phone] (Wo rk) Social History Tobacco Use [...] 06/19/2022 Unless otherwise specified, test(s) performed at: [facility], [address] [place] [address], [place] [address] MANNEQUIN REFINISHER: Raheem Malik M.D., Ph.D For any questions, [...] 06/19/2022 Unless otherwise specified, test(s) performed at: [facility], [address] [place], [place] [address]ann [place] [address] MANNEQUIN REFINISHER: Raheem Malik M.D., Ph.D For any questions, please call customer service at FREQUENCY:OTHER Resulting Agency Comment Specimen source: Serum Denilson Holly MD LAB BLOOD ORDERABLES Performing Organization Address City/State/[facility] Code Phon e Number APS SPECTRA [facility] documented in this encounter Visit Diagnoses Not on filedocumented in this encounter
--- OUTSIDE RECORDS SUMMARY | 2022-07-03 14:22 | XMS_ITS | Encounter Summary ---
:1940 Author Organization [facility] Address [address] [place] [address] Care Team Providers Name Role Phone Unavailable Primary Care Provider Unavailable Encounter Details Date Type Department Care Team Description 07/02/2022 Treatment [facility] O f Denilson Quinones MD [address] [place], [place] [phone] (Wo rk) Social History Tobacco Use Types Packs/Day Years Used Date Smoking Tobacco: Never Assessed Sex Assigned at Date Recorded Not on file documented as of this encounter Miscellaneous Notes Dialysis Note - Denilson Holly MD - 07/02/2022 1:41 PM CDT Date: Jul 02, 2022 Patient Name: Speedy Hendricks : 1940 Chart #: [id number] Sex: M HOUSEKEEPING AIDE: Denilson Holly MD LOCATION: [place] [phone] SCHEDULE: M-W-F 2nd Shift Chief Complaint: Acute kidney injury. The patient complains of the following - 07/02: He remains hesitant about access but ok if we schedule upper arm graft at [facility] after discussing again with him and both his daughters today. He is overall feeling better. He is back home, help from daughters but now walking with walker and can do toilet and most ADL's on his own and getting stronger. Eating not great. CrCl was 10 with urea clearance much lower on 24hr urine. Fluid gains lower. 06/11: Still at [facility]. NO symptoms with dialysis. Cr essentially unchanged. He says he willdo 24hr urine next week, staff at SNF [...] HD, but still requiring HD. Transferred from [place] rehab to [facility] here, hoping to get home. First Hd here today, dry weight much lower than what they had listed it appears. Med list reviewed from [facility], on midodrine for hypotension with HD. The [...] Hx of above, complex co-morbidities, hospitalized in [place] for AAA rupture while on boat -> TEVAR extension on 01/03/22 -> multiple complications including ARF requiring CRRT/HD, staph pneumonia, chronic resp failure with long mech vent/trach (trach out), R hydropneumothorax, DVT, a-fih, UGI bleed, DIC, critical illness myopathy, sepsis, and dysphagia (had feeding tube, now removed). Went to rehab, transferred back to [place] to [facility] for ongoing rehab closer to home. [facility] [place]. His daughter Raquel is ICU/PHYSICIAN SURGEON (ramone currently) and is very involved. Problem List No problem list is available. History not documented History not documented Review of Systems: No shortness of breath. No fever. No edema. No nausea. No report of cramps. Pt still producing urine. Exam: HEENT - PERRLA. No oral lesions. Lungs - Good respiratory effort. Clear. Heart - S1. S2. irregular heart rate Abdomen - Soft and non distended. Edema - No edema. Appears better overall Medication List Medication Sig Start Date apixaban [...] LInks Adequacy & Blood Pressure: spKt/V Gotch 1.39 (06/25/22) 1.78 (05/21/22) 1.8 (04/23/22) eKdrt/V 1.27 (06/25/22) 1.45 (05/21/22) 1.47 (04/23/22) spKt/V (Daugirdas II) 1.3600 (06/25/22) 1.6600 (05/21/22) 1.6300 (04/23/22) 1.3700 (04/16/22) BUN mg/dL 24 (06/25/22) 34 (06/18/22) 29 (06/11/22) 37 (06/04/22) 54 (05/28/22) UREA NITROGEN (MG/DL) IN SER/PLAS - POST DIALYSIS mg/dL 7 (06/25/22) 13 (05/21/22) 11 (04/23/22) 18 (04/16/22) URR % 71 (06/25/22) 76 (05/21/22) 74 (04/23/22) 69 (04/16/22) KT/V adequate. Meets prescribed frequency target. Hypotension avoided. Excessive weight gain avoided. Dry weight stable. Vascular Access: Type of access - Cath - Tunneled AVG to be scheduled at [facility] Anemia: HEMOGLOBIN (G/DL) IN BLOOD g/dL 11.1 (06/25/22) 10.2 (06/18/22) 10.6 (06/11/22) 10.1 (06/04/22) 9.9 (05/28/22) PLATELETS 1000/mcL 198 (06/25/22) 244 (05/21/22) 203 (04/23/22) 229 (04/16/22) IRON SATURATION % 31 (04/16/22) FERRITIN ng/mL 704 (04/23/22) 989 (04/16/22) Hemoglobin within target. Transferrin saturation within target. Supplemental iron not needed at this time. Labs today, will start iron/mircera protocol Nutrition: ALBUMIN (G/DL) g/dL 3.9 (06/25/22) 3.7 (05/21/22) 3.2 (04/23/22) 2.7 (04/16/22) Sodium mEq/L 138 (06/25/22) 140 (06/18/22) 142 (06/11/22) 141 (06/04/22) 139 (05/28/22) POTASSIUM (MMOL/L) IN SER/PLAS mEq/L 4.3 (06/25/22) 4.7 (06/18/22) 4.6 (06/11/22) 3.7 (06/04/22) 4.4 (05/28/22) BICARBONATE (CO2) mEq/L 29 (06/25/22) 23 (06/18/22) 28 (06/11/22) 30 (06/04/22) 26 (05/28/22) Albumin adequate. Potassium controlled. Albumin improved Bone and Mineral: CALCIUM mg/dL 8.9 (06/25/22) 9.1 (05/21/22) 8.6 (05/19/22) 9.1 (05/02/22) 8.6 (04/23/22) CALCIUM (MG/DL) CORRECTED FOR ALBUMIN IN SER/PLAS mg/dL 9.0 (06/25/22) 9.3 (05/21/22) 9.2 (04/23/22) 9.2 (04/16/22) PHOSPHATE (MG/DL) IN SER/PLAS mg/dL 5.0 (06/25/22) 3.7 (05/21/22) 4.5 (04/23/22) 3.7 (04/16/22) CALCIUM PHOSPHORUS PRODUCT, COR 45 (06/25/22) 34 (05/21/22) 41 (04/23/22) 34 (04/16/22) IPTH pg/mL 121 (04/23/22) 108 (04/16/22) Phosphorus controlled. PTH is within target range. Impression and Plan: Patient stable - continue current treatment parameters. Patient discussed with nursing. Patient CrCl 10 and lower IDWG's but urea clearance lower and GFR 3 months with Cr remaining in upper 3's with GFR <10. Will get AVG scheduled as he does now agree to this. Denilson Holly MD [ Signed And locked electronically On 07/02/2022 at 01:45:40 PM ] Transcribed: Denilson Holly ( 07/02/2022 ) documented in this encounter Plan of Treatment Not on filedocumented as of this encounter Visit Diagnoses Not on filedocumented in this encounter
--- OUTSIDE RECORDS SUMMARY | 2022-07-03 14:22 | XMS_ITS | Encounter Summary ---
:1940 Author Organization [facility] Address [address] [place] [address] Care Team Providers Name Role Phone Unavailable Primary Care Provider Unavailable Encounter Details Date Type Department Care Team Description 05/28/2022 Treatment [facility] O f Denilson Quinones MD [address] [place], [place] [phone] (Wo rk) Social History Tobacco Use Types Packs/Day Years Used Date Smoking Tobacco: Never Assessed Sex Assigned at Date Recorded Not on file documented as of this encounter Miscellaneous Notes Dialysis Note - Denilson Holly MD - 05/28/2022 12:50 PM CDT Date: May 28, 2022 Patient Name: Speedy Hendricks : 1940 Chart #: [id number] Sex: M PAVING RAMMER: Denilson Holly MD LOCATION: [place] [phone] SCHEDULE: M-W- 2nd Shift Chief Complaint: Acute [...] HD, but still requiring HD. Transferred from [place] rehab to [facility], hoping to get home. First Hd here today, dry weight much lower than what they had listed it appears. Med list reviewed from [facility], on midodrine for hypotension with HD. [...] Hx of above, complex co-morbidities, hospitalized in [place] for AAA rupture while on boat -> TEVAR extension on 01/03/22 -> multiple complications including ARF requiring CRRT/HD, staph pneumonia, chronic resp failure with long mech vent/trach (trach out), R hydropneumothorax, DVT, a-fih, UGI bleed, DIC, critical illness myopathy, sepsis, and dysphagia (had feeding tube, now removed). Went to rehab, transferred back to [place] to [facility] for ongoing rehab closer to home. [facility] in [place]. His daughter Raquel is ICU/BROOMMAKING SUPERVISOR (ramone currently) and is very involved. [...] and he is considering. WIll send to [facility] as soon as he accepts Will keep [...]
--- OUTSIDE RECORDS SUMMARY | 2022-07-03 14:22 | XMS_ITS | Encounter Summary ---
:1940 Author Organization [facility] Address [address] [place] [address] Care Team Providers Name Role Phone Unavailable Primary Care Provider Unavailable Encounter Details Date Type Department Care Team Description 06/11/2022 Treatment [facility] f Denilson Quinones MD [address] [place], [place] [phone] (Wo rk) Social History Tobacco Use Types Packs/Day Years Used Date Smoking Tobacco: Never Assessed Sex Assigned at Date Recorded Not on file documented as of this encounter Miscellaneous Notes Dialysis Note - Denilson Holly MD - 06/11/2022 3:02 PM CDT Date: Jun 11, 2022 Patient Name: Speedy Hendricks : 1940 Chart #: [id number] Sex: M PIPE RACKER: Denilson Holly MD LOCATION: [place] [phone] SCHEDULE: M-W-F 2nd Shift Chief Complaint: Acute [...] HD, but still requiring HD. Transferred from [place] rehab to [facility] here, hoping to get home. First Hd here today, dry weight much lower than what they had listed it appears. Med list reviewed from [facility], on midodrine for hypotension with HD. 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 Went to rehab, transferred back to [place] to [facility] for ongoing rehab closer to home. [facility] in [place]. His daughter Raquel is ICU/WILDLIFE AND GAME PROTECTOR (ramone currently) and is very involved. Problem [...] and he is considering. WIll send to [facility] as soon as he accepts Will keep [...]
--- OUTSIDE RECORDS SUMMARY | 2022-07-03 14:22 | XMS_ITS | Encounter Summary ---
:1940 Author Organization [facility] Address [address] [place] [address] Care Team Providers Name Role Phone Unavailable Primary Care Provider Unavailable Encounter Details Date Type Department Care Team Description 06/11/2022 Orders Only [facility] O f Denilson Quinones MD [phone] [place] [address] [place], [place] [phone] (Wo rk) Social History Tobacco Use [...] 06/12/2022 Unless otherwise specified, test(s) performed at: [facility], [address] [place] [address], [place] [address] CAMPAIGN ANALYST: Raheem Malik M.D., Ph.D For any questions, please call customer service at FREQUENCY:OTHER Resulting Agency Comment Specimen source: Blood Denilson Holly MD LAB BLOOD ORDERABLES Performing Organization Address City/State/[facility] Code Phon [...] 06/12/2022 Unless otherwise specified, test(s) performed at: [facility], [address] [place], [place] [address]ann [facility] [address] CAMPAIGN ANALYST: Raheem Malik M.D., Ph.D For any questions, please call customer service at FREQUENCY:OTHER Resulting Agency Comment Specimen source: Serum Denilson Holly MD LAB BLOOD ORDERABLES Performing Organization Address City/[facility] Code Phon e Number APS SPECTRA [facility] documented in this encounter Visit Diagnoses Not on filedocumented in this encounter
--- OUTSIDE RECORDS SUMMARY | 2022-07-03 14:22 | XMS_ITS | Encounter Summary ---
:1940 Author Organization [facility] Address [address] [place] [address] Care Team Providers Name Role Phone Unavailable Primary Care Provider Unavailable Encounter Details Date Type Department Care Team Description 06/04/2022 Orders Only [facility] O f Denilson Quinones MD [phone] [place] [address] [place], [place] [phone] (Wo rk) Social History Tobacco Use [...] 06/05/2022 Unless otherwise specified, test(s) performed at: [facility], [address] [place] [address], [place] [address] RELASTER: Raheem Malik M.D., Ph.D For any questions, please call customer service at FREQUENCY:OTHER Resulting Agency Comment Specimen source: Serum Denilson Holly MD LAB BLOOD ORDERABLES Performing Organization Address City/[facility] Phon e Number APS SPECTRA [...] 06/05/2022 Unless otherwise specified, test(s) performed at: [facility], [address] [place] [address], [place] [address] RELASTER: Raheem Malik M.D., Ph.D For any questions, please call customer service at FREQUENCY:OTHER Resulting Agency Comment Specimen source: Blood Denilson Holly MD LAB BLOOD ORDERABLES Performing Organization Address City/[facility] Phon e Number APS SPECTRA [facility] documented in this encounter Visit Diagnoses Not on filedocumented in this encounter
--- OUTSIDE RECORDS SUMMARY | 2022-07-03 14:22 | XMS_ITS ---
:1940 Author Organization [facility], NA DOCUMENT DISCLAIMER The information in the [facility] Continuity of Care Document represents a summary [...] Characteristics Need Level ADL Type Relationship of talent buyer Requires some assistance Bathing Dressing Shopping Meal Fami ly Care, Facility preparation Laundry Housekeeping Medication management Managing medical appointments Managing finances Characteristics of Home environment Housing Status Patient Resides With House Pt is currently in rehab and lives with other rehab residents. MEDICATIONS Prescribed Medications for Dialysis Treatments Medication Instructions Dosage Route Start End Date Status Date Heparin Every 1600 Arterial Red April 16April 15, Activ e Sodium Treatment units Port 2021 2022 (Porcine) 1,000 Units/mL Catheter Lock Arterial Heparin Every 1600 Venous Blue April 16April 15, Active Sodium Treatment units Port 2021 2022 (Porcine) 1,000 Units/mL Catheter Lock Venous Iron Sucrose 1X Week 50 mg Intravenous - May Active (Venofer) push 2021 Mircera Every 4 weeks 75 mcg Intravenous - May Discontinued push 2021 Home Medications Medication Instructions Dosage [...] Sign Value Date / Time Blood Pressure-sitting 131/71 mmHg June 30 11:54 AM Blood Pressure-standing 124/65 mmHg June 30 11:54 AM Heart Rate 79 beats per minute June 30, 2022 1 1:54 AM Respiratory Rate 16 breaths per minute June 30, 2022 11:54 AM Temperature 97.8 deg. F June 30, 2022 1 1:54 AM Weight Vital Sign Value Date / Time Estimated Dry Weight 71.5 kg July 02, 2022 11:59 PM Pre-Dialysis 73.20 kg June 30, 2022 1 1:54 AM Post-Dialysis 71.70 kg June 30, 2022 1 1:54 AM Other Other Value Date / Time Height 161 cm May 26, 2022 12:0 0 AM [facility] LAB RESULTS Hematology Result Type Result Value Relevant Interpretation Date Reference Range Hemoglobin x 3 30.3 % Male: 14.0 - 18.0 Low May 192021 g/dL; Female: 12.0-16.0 g/dL HGB 10.1 g/dL Males: 14.0 - Low June 04 18.0 g/dL Females: 12.0 - 16.0 g/dL Hemoglobin x 3 31.8 % Male: 14.0 - 18.0 Low May 202021 g/dL; Female: 12.0-16.0 g/dL HGB 10.6 g/dL Males: 14.0 - Low June 11 18.0 g/dL Females: 12.0 - 16.0 g/dL HGB 10.2 g/dL Males: 14.0 - Low June 18 18.0 g/dL Females: 12.0 - 16.0 g/dL Hemoglobin x 3 30.6 % Male: 14.0 - 18.0 Low May 212021 g/dL; Female: 12.0-16.0 g/dL MCH 30.7 pg 27 - 31 pg/cell - June MCHC 31.5 g/dL 30 - 36 g/dL - June 25, 2022 RDW 15.2 % No Reference High June 25, range provided 2021 Neutrophils 64.2 % 40.0-75.0% - June 25, 2022 Lymphocytes 20.5 % 19.0-48.0% - June 25, 2022 Monocytes 8.7 % 3.0-10.0% - June 25, 2022 Eosinophil 2.0 % 0.0-7.0% - June 25, 2022 Iron 70 mcg/dL Females: 30-160 - June 25 , mcg/dL Males: 2021 45-160 mcg/dL Basophils 0.5 % 0.0-1.5% - June 25, 2022 UIBC (Calc) 189 mcg/dL 155-355 mcg/dL - June 25, 2022 YARIEL 4.1 % 0.0-4.0% High June 25, 2022 TIBC 259 mcg/dL 185-515 mcg/dL - June 25, 2022 Transferrin Sat. 27 % 20-55% - June, (Calc) 2021 Platelets 198 1000/mcL 016-519 4162/mcL - June WBC (No Diff) 4.15 1000/mcL 4.8-10.8 Low June 25, thous/mcL 2021 RBC 3.60 mill/mcL Males: 4.70 - Low June 25, 6.10 mill/mcL 2021 Females: 4.20 - 5.40 mill/mcL HGB 11.1 g/dL Males: 14.0 - Low June 25, 18.0 g/dL 2021 Females: 12.0 - 16.0 g/dL Hemoglobin x 3 33.3 % Male: 14.0 - 18.0 Low Junembe r 07, g/dL; Female: 2021 12.0-16.0 g/dL HCT 35.1 % Males: 42 - 52% Low June 25 , Females: 37 - 47% 2021 Metabolic/Renal Result Type Result Value Relevant Reference Interpretation Date Range Creatinine, Serum 2.15 mg/dL 0.6-1.3 mg/dL High May BUN/Creat Ratio 17.2 08-07 - June 04, 022 BUN 37 mg/dL 6-19 mg/dl High [...] 2.31 mg/dL 0.6-1.3 mg/dL High May Creatinine 10.2 mL/min Creatinine Low June 13, 2022 Clearance, Urine Clearance, Normalized Male 94.0-122.0 mL/min Female 77.0-94.0 mL/min Urea Nitrogen, 177 mg/dL 12-20 g/24 hrs - June 13, 2022 Urine, Timed BUN 34 mg/dL 6-19 mg/dl High June 18, 2022 Creatinine, Serum 2.67 mg/dL 0.6-1.3 mg/dL High May BUN/Creat Ratio 12.7 08-07 - June 18, 2 022 Sodium 140 mEq/L 136-145 mEq/L - June 18 2 Potassium 4.7 mEq/L 3.5-5.1 mEq/L - June 18 2 Chloride 103 mEq/L 96-108 mEq/L - June 18, 2022 Bicarbonate 23 mEq/L 22-29 mEq/L - June 18, 2022 BUN, Post 7 mg/dL 6-19 mg/dL - June 25, 2022 URR, Calc 71 % 65 - 80% - June 25, 2022 BUN 24 mg/dL 6-19 mg/dl High June 25, 2022 Creatinine, Serum 2.84 mg/dL 0.6-1.3 mg/dL High June 25, 2022 BUN/Creat Ratio 8.5 10-20 Low June Sodium 138 mEq/L 136-145 mEq/L - June 25, 2022 Potassium 4.3 mEq/L 3.5-5.1 mEq/L - June 25, 2022 Chloride 100 mEq/L 96-108 mEq/L - June 25, 2022 Bicarbonate 29 mEq/L 22-29 mEq/L - June 25, 2022 HD Adequacy Result Type Result Value Relevant Reference Interpretation Date Range eKt/V 1.14 No Reference range Normal June 25, 2022 (Kayleeall) provided spKt/V (Daugirdas 1.36 No Reference range Normal Jun II) provided Bone/Mineral Result Type Result Value Relevant Reference Interpretation Date Range Corrected Ca x P 45 < 55 - June Product Magnesium 1.7 mg/dL 1.6-2.6 mg/dL - June 25, 2022 Calcium, Total 8.9 mg/dL 8.4-10.2 mg/dL - June Phosphorus 5.0 mg/dL 2.6-4.5 mg/dL High June 25, 2022 Ca x P Product 45 < 55 - June 25, 2022 Liver/Nutrition Result Type Result Value Relevant Reference Interpretation Date Range Globulin (Calc) 2.7 g/dL 1.0 - 2.0 - June A/G Ratio 1.4 1.0-2.0 - June 25 Total Protein 6.6 g/dL 6.0-8.5 g/dL - June 25, 2022 Albumin (BCG) 3.9 g/dL 3.5-5.2 g/dL - June 25, 2022 Peritoneal Dialysis Testing Result Type Result Value Relevant Reference Interpretation Date Range Total Urea 1.4 g/24 hr No Reference range Low May Nitrogen, Urine provided Creatinine, Urine 43.6 mg/dL No Reference range - 2021 provided Total Creatinine, 0.3 g/24 hr No Reference range Low 2021 Urine provided Infectious Diseases Result Type Result Value Relevant Reference Interpretation Date Range Hep B core Ab Negative Negative - April 23, 2022 Total (anti-HBc) Hep B Surface Ag Negative Negative - June (HBsAg) Hep B Surface Ab 41 mIU/mL < 10 mIU/mL, Non- - Septem 2021 (anti-HBs) Immune DIALYSIS PRESCRIPTION Conventional Hemodialysis Data Element Value Order Date/Time July 02, 2022 Frequency 3X Week Treatment Days MonWedFri Dialyzer 180NRe Optiflux Treatment Time (Total Minutes) 180 min Blood Flow Rate (mL/min) 350 mL/min Dialysate Flow Rate Manual 600 Estimated Dry Weight 71.5 kg Dialysate Concentrate 3.0 K, 2.25 Ca, 1.0 Mg, 100 Dextrose (G3231) Sodium (mEq/L) 138 meq/L Bicarb Machine Setting (mEq/L) 36 meq/L Dialysis Access Hemodialysis-CV Catheter-Kodak neled, Chest, Right Jugular IMMUNIZATIONS Vaccine Date Dose Route Status [id number], series June 18, 2022 40.0 mcg Intramuscul ar Completed 3 of 4 HEPLISAV-B April 25, 2022 20.0 mcg Intramuscular Completed TRANSPLANT WAITLIST STATUS No Information on Transplant Waitlist Status DIALYSIS TREATMENTS Conventional Hemodialysis Date Pre-Treatment Post-Treatment Duration BFR Dialysate Dialyzer Dialysis Meds Vitals Vitals (hr) (mL/min) Access Admin June Weight 73.10 Weight 72.40 03:00:00 350 2.0 K, 180nre Hemod ialysis-CV Catheter-Tunneled, Chest, Right Jugular Heparin Sodium (Porcine) 1,000 Units/mL Catheter Lock Arterial; 1600units,Arterial Red Port 2021 kg kg 2.5 Ca, Optiflux Hepari n Sodium (Porcine) 1,000 Units/mL Catheter Lock Venous; 1600units,Venous Blue Port 1.0 Mg, 100 Dextrose (N2251) Blood Pressure-sitting 124/80 mmHg Blood Pressure-sitting 12 9/71 mmHg Blood Pressure-standing 163/86 mmHg Blood Pressure-standing 128/71 mmHg Heart Rate 85 beats per Heart Rate 81 beats per minute minute Respiratory Rate 16 breaths per Respiratory Rate 16 breaths per minute minute Temperature 99.5 deg. F Temperature 96.8 deg. F June Weight 72.80 Weight 72.90 03:04:00 350 2.0 K, 180nre Hemod ialysis-CV Catheter-Tunneled, Chest, Right Jugular Heparin Sodium (Porcine) 1,000 Units/mL Catheter Lock Arterial; 1600units,Arterial Red Port 2021 kg kg 2.5 Ca, Optiflux Hepari n Sodium (Porcine) 1,000 Units/mL Catheter Lock Venous; 1600units,Venous Blue Port 1.0 Mg, 100 Dextrose (N2251) Blood Pressure-sitting 120/65 mmHg Blood Pressure-sitting 11 9/52 mmHg Blood Pressure-standing 138/83 mmHg Blood Pressure-standing 122/64 mmHg Heart Rate 97 beats per Heart Rate 78 beats per minute minute Respiratory Rate 16 breaths per Respiratory Rate 16 breaths per minute minute Temperature 97.5 deg. F Temperature 97.6 deg. F June Weight 73.20 Weight 71.70 03:02:00 350 2.0 K, 180nre Hemod ialysis-CV Catheter-Tunneled, Chest, Right Jugular Heparin Sodium (Porcine) 1,000 Units/mL Catheter Lock Arterial; 1600units,Arterial Red Port 2021 kg kg 2.5 Ca, Optiflux Hepari n Sodium (Porcine) 1,000 Units/mL Catheter Lock Venous; 1600units,Venous Blue Port 1.0 Mg, Iron Sucrose (Venofer); 50mg,Intravenous - push 100 Dextrose (N2251) Blood Pressure-sitting 147/75 mmHg Blood Pressure-sitting 13 1/71 mmHg Blood Pressure-standing 163/87 mmHg Blood Pressure-standing 124/65 mmHg Heart Rate 84 beats per Heart Rate 79 beats per minute minute Respiratory Rate 16 breaths per Respiratory Rate 16 breaths per minute minute Temperature 97.3 deg. F Temperature 97.8 deg. F
--- OUTSIDE RECORDS SUMMARY | 2022-07-03 14:22 | XMS_ITS | Clinical Summary ---
:1940 Author Organization [facility] Facility Address [address] [place] [id number] Care Team Providers Name Role Phone Unavailable Primary Care Provider Unavailable Encounters Date Type Specialty Care Team Description 07/02/2022 Treatment Denilson Holly MD 06/25/2022 Orders Only NephDenilson Isidro MD 06/18/2022 Orders Only NephDenilson Isidro MD 06/13/2022 [...] NephDenilson Isidro MD 04/16/2022 Orders Only Denilson Leahy MD [...] Name Priority Date/Time Associated Diagnosis Comme nts SPECTRA JALEEL LAB RESULTS Routine 06/25/2022 Resul ts for this procedure are i n the results section . HD KINETICS Routine 06/25/2022 Results for thi s procedure are i n the results section . POST CHEMISTRY Routine 06/25/2022 Results for t his procedure are i n the results section . IMMUNO CHEMISTRY Routine 06/25/2022 Results for this procedure are i n the results section . CHEMISTRY Routine 06/25/2022 Results for thi s procedure are i n the results section . HEMATOLOGY Routine 06/25/2022 Results for thi s procedure are i n the results section . HEMATOLOGY Routine 06/18/2022 Results for thi s [...] section . from Last 3 Months Results HD KINETICS (06/25/2022)Only the most recent of4 resultswithin the time period is included. P athologist Signature % Urea 71 65 - 80 % APS SPECTRA Reduction [facility] Specimen (Source) Anatomical Collection Method Collection Time Re ceived Time Location / / Volume Laterality 06/25/2022 06/27/2022 8:15 AM CDT Resulting Agency Comment Specimen source: Plasma Denilson Holly MD LAB BLOOD ORDERABLES Performing Organization Address City/State/ZIP Code Phon e Number APS SPECTRA [facility] POST CHEMISTRY (06/25/2022)Only the most recent of4 resultswithin the time period is included. P athologist Signature BUN Post 7 6 - 19 APS SPECTRA Dialysis mg/dL [facility] Specimen (Source) Anatomical Collection Method Collection Time Re ceived Time Location / / Volume Laterality 06/25/2022 06/27/2022 8:15 AM CDT Narrative APS SPECTRA [facility] - 06/27/2022 Unless otherwise specified, test(s) performed at: [facility], [address] [place] [address] CLINICAL PRODUCT MANAGER: Raheem Malik M.D., Ph.D For any questions, please call customer service at FREQUENCY:MONTHLY Resulting Agency Comment Specimen source: Plasma Denilson Holly MD LAB BLOOD ORDERABLES Performing Organization Address City/State/ZIP Code Phon e Number [facility] SPECTRA [facility] IMMUNO CHEMISTRY (06/25/2022)Only the most recent of4 resultswithin the time period is included. P athologist Signature Hep B Surface Negative Negative [facility] SPECT[facility] Ag [facility] Hepatitis B 41 mIU/mL [facility]PECT[facility] Surface Ab [facility] Comment: The anti-HBs (Hepatitis B surface antibo dy) is greater than or equal to 10 mIU/mL and implies immunity. The angela ent has either had an antibody response to HBV vaccination, received a transfusion, or has recovered from HBV infection. For post-vaccination antibody testing guidelines for the general public, refer to MMWR Dece 2004/Vol.54 (No. 16); 1-23, and for healthcare workers, refer to MMWR October 07, 2013/Vol.62 (No. 10); 1-18. Reference Range: <10 mIU/mL ? Non-Immune >=10 mIU/mL ?Immune The magnitude of the measured result abo ve 10 mIU/mL is not indicative of the total amount of antibody present. Specimen (Source) Anatomical Collection Method Collection Time Re ceived Time Location / / Volume Laterality 06/25/2022 06/27/2022 6:33 AM CDT Narrative APS SPECTRA [facility] - 06/27/2022 Unless otherwise specified, test(s) performed at: [facility], [address] [place] [address] CLINICAL PRODUCT MANAGER: Raheem Malik M.D., Ph.D For any questions, please call customer service at FREQUENCY:MONTHLY Resulting Agency Comment Specimen source: Plasma Denilson Holly MD LAB BLOOD ORDERABLES Performing Organization Address City/State/ZIP Code Phon e Number APS SPECTRA [facility] (ABNORMAL) HEMATOLOGY (06/25/2022)Only the most recent of11 resultswithin the time period is included. [facility] gist Method Time Signature WBC 4.15 (L) 4.80 - APS SPECTRA 10.80 [facility] 1000/mcL RBC 3.60 (L) 4.70 - APS SPECTRA 6.10 [facility] mill/mcL Hemoglobin 11.1 (L) 14.0 - APS SPECTRA 18.0 g/dL [facility] Hemoglobin x 3 33.3 (L) 42.0 - APS SPECTRA 54.0 % [facility] Hematocrit 35.1 (L) 42.0 - APS SPECTRA 52.0 % [facility] MCV 98 80 - 100 APS SPECTRA fl [facility] MCH 30.7 27.0 - APS SPECTRA 31.0 pg [facility] MCHC 31.5 30.0 - APS SPECTRA 36.0 g/dL [facility] RDW 15.2 (H) 11.5 - APS SPECTRA 14.5 % [facility] Neutrophils 64.2 40.0 - APS SPECTRA 75.0 % [facility] Lymphocytes 20.5 19.0 - APS SPECTRA Relative 48.0 % [facility] Monocytes 8.7 3.0 - 10.0 APS SPECTRA % [facility] Eosinophils 2.0 0.0 - 7.0 APS SPECTRA Relative % [facility] Basophils 0.5 0.0 - 1.5 APS SPECTRA Relative % [facility] YARIEL 4.1 (H) 0.0 - 4.0 APS SPECTRA % [facility] Platelets 198 130 - 400 APS SPECTRA 1000/mcL [facility] Specimen (Source) Anatomical Collection Method Collection Time Re ceived Time Location / / Volume Laterality 06/25/2022 06/27/2022 6:41 AM CDT Narrative APS SPECTRA [facility] - 06/27/2022 Unless otherwise specified, test(s) performed at: [facility], [address] [place] [address] CLINICAL PRODUCT MANAGER: Raheem aMlik M.D., Ph.D For any questions, please call customer service at FREQUENCY:MONTHLY Resulting Agency Comment Specimen source: Blood Denilson Holly MD LAB BLOOD ORDERABLES Performing Organization Address City/State/ZIP Code Phon e Number APS SPECTRA [facility] (ABNORMAL) Spectrae Chemistry (06/25/2022)Only the most recent of16 results within the time period is included. P athologist Signature BUN 24 (H) 6 - 19 APS SPECTRA mg/dL [facility] Creatinine 2.84 (H) 0.60 - 1.30 APS SPECTRA mg/dL [facility] Comment: Custom Exception BUN/Creatinine Ratio 8.5 (L) 10.0 - 20.0 APS SPE CTRA [facility] Sodium 138 136 - 145 mEq/L [facility] Potassium 4.3 3.5 - 5.1 mEq/L [facility] Chloride 100 96 - 108 mEq/L [facility] Bicarbonate (CO2) 29 20 - 31 mEq/L APS SPEC TRA [facility] Comment: Please note change in reference range. Calcium 8.9 8.7 - 10.4 mg/dL APS SPECTRA [facility] Comment: Please note change in reference range. Corrected Calcium 9.0 8.7 - 10.4 mg/dL APS S PECTRA [facility] Comment: Corrected Calcium is not equivalent to m easured Ionized Calcium. Phosphorus 5.0 (H) 2.6 - 4.5 mg/dL APS SPECTRA [facility] Calcium Phosphorus Product 45 0 - 54 APS SPECTRA [facility] Calcium Phosporus Product, Cor 45 0 - 54 APS SPECTRA [facility] Total Protein 6.6 6.0 - 8.5 g/dL APS SPECTRA [facility] Albumin 3.9 3.5 - 5.2 g/dL [facility] S[facility]RA [facility] Globulin, Total 2.7 2.0 - 4.0 g/dL APS SPECT RA [facility] A/G Ratio 1.4 1.0 - 2.0 APS SPECTRA [facility] Magnesium 1.7 1.6 - 2.6 mg/dL [facility] Iron 70 45 - 160 mcg/dL [facility] UIBC 189 155 - 355 mcg/dL APS SPECTRA [facility] TIBC 259 185 - 515 mcg/dL APS SPECTRA [facility] Iron Saturation (TSat) 27 20 - 55 % APS SPE CTRA [facility] Specimen (Source) Anatomical Collection Method Collection Time Re ceived Time Location / / Volume Laterality 06/25/2022 06/27/2022 5:57 AM CDT Narrative APS SPECTRA [facility] - 06/27/2022 Unless otherwise specified, test(s) performed at: [facility], [address] [place] [address], [place] [address] CLINICAL PRODUCT MANAGER: Raheem Malik M.D., Ph.D For any questions, please call customer service at FREQUENCY:MONTHLY Resulting Agency Comment Specimen source: Serum Denilson Holly MD LAB BLOOD ORDERABLES Performing Organization Address City/State/ZIP Code Phon e Number APS SPECTRA [facility] Spectra JALEEL Lab Results (06/25/2022)Only the most recent of4 resultswithin the time period is included. P athologist Signature spKt/V 1.36 JALEEL (Daugirdas II) nPCR_HD 0.53 JALEEL eKt/V 1.14 JALEEL ([place]) eKdrt/V 1.27 JALEEL eNPCR 0.48 JALEEL spKt/V Gotch 1.39 JALEEL eKt/V Gotch 1.14 JALEEL PCR 21.84 JALEEL Specimen (Source) Anatomical Location Collection Method / Collectio n Time Received Time / Laterality Volume 06/25/2022 06/25/2022 Jaleel Ordering Provider LAB BLOOD ORDERABLES Performing Organization Address City/State/ZIP Code Phon e Number JALEEL (ABNORMAL) URINE CLEARANCE (06/13/2022)Only the most recent [...] Laterality 06/13/2022 06/14/2022 2:48 AM CDT Narrative [facility] SPECTRA [facility] - 06/14/2022 Unless otherwise specified, test(s) performed at: [facility], [address] [place] [address], [place] [address] CLINICAL PRODUCT MANAGER: Raheem Malik M.D., Ph.D For any questions, please call customer service at FREQUENCY:OTHER Resulting Agency Comment Specimen source: Urine Denilson Holly MD LAB URINE ORDERABLES Performing Organization Address City/[facility] Phon e Number [facility] SPECTRA [facility] PATIENT INFORMATION (06/13/2022)Only the most recent of6 resultswithin the time period is included. athologist [facility] Patient BSA 1.77 sq. M. APS SPECTRA [facility] Comment: Normalized values are calculated using t he patient's actual BSA and normalized to the average BSA of 1.73m2. Specimen (Source) Anatomical Collection Method Collection Time Re ceived Time Location / / Volume Laterality 06/13/2022 06/14/2022 2:50 AM CDT Narrative [facility] SPECTRA [facility] - 06/14/2022 Unless otherwise specified, test(s) performed at: [facility], [address] [place] [address], [place] [address] CLINICAL PRODUCT MANAGER: Raheem Malik M.D., Ph.D For any questions, please call customer service at FREQUENCY:OTHER Resulting Agency Comment Specimen source: PD Fluid Denilson Holly MD LAB BLOOD ORDERABLES Performing Organization Address City/[facility] Phon e Number APS SPECTRA [facility] GFR (05/28/2022)Only the most recent of8 resultswithin the time period is included. athologist Signature eGFR CKD-EPI CR 30 mL/min [facility] SPECTRA 2020 [facility] Comment: [facility] has implemented the recommended eGFR calculation that [...] 05/29/2022 Unless otherwise specified, test(s) performed at: [facility], [address] [place] [address], [place] [address] CLINICAL PRODUCT MANAGER: Raheem Malik M.D., Ph.D For any questions, please call customer service at FREQUENCY:OTHER Resulting Agency Comment Specimen source: Serum Denilson Holly MD LAB [id number] NSOLICITED RESULTS Performing Organization Address City/State/ZIP Code Phon e Number APS SPECTRA [facility] TRACE ELEMENTS (04/23/2022)Only the most recent of2 resultswithin the time period is included. athologist Signature Aluminum <5 0 - 10 APS SPECTRA mcg/L [facility] Comment: This test was developed and its performa nce characteristics determined by [facility]. It has not been cleared or approved by the FDA. The laboratory is regulated under CLIA a s qualified to perform high complexity testing. This test is used fo r clinical purposes. It should not be regarded as investigational or fo r research. Test performed at [facility], [address] [place] [address]. Telephone . [employer] or: Henok Correa MD. Specimen (Source) Anatomical Collection Method Collection Time Re ceived Time Location / / Volume Laterality 04/23/2022 04/25/2022 7:04 PM CDT Narrative APS SPECTRA [facility] - 04/27/2022 Unless otherwise specified, test(s) performed at: [facility], [address] [place] [address] CLINICAL PRODUCT MANAGER: Raheem Malik M.D., Ph.D For any questions, please call customer service at FREQUENCY:MONTHLY Resulting Agency Comment Specimen source: Serum Denilson Holly MD LAB BLOOD ORDERABLES Performing Organization Address City/State/ZIP Code Phon e Number APS SPECTRA [facility] from Last 3 Months Insurance Payer Benefit Plan / Subscriber ID Effective Dates Phone Addre ss Type Group [place] [id number] 2016-Present [phone] [address] [address] ([id number]) [place] [address]
--- OUTSIDE RECORDS SUMMARY | 2022-07-03 14:22 | XMS_ITS | Encounter Summary ---
:1940 Author Organization [facility] Address [address] [place] [address] Care Team Providers Name Role Phone Unavailable Primary Care Provider Unavailable Encounter Details Date Type Department Care Team Description 06/25/2022 Orders Only [facility] O f Denilson Quinones MD [phone] [place] [address] [place], [place] [phone] (Wo rk) Social History Tobacco Use Types Packs/Day Years Used Date Smoking Tobacco: Never Assessed Sex Assigned at Date Recorded Not on file documented as of this encounter Plan of Treatment Not on filedocumented as of this encounter Procedures Procedure Name Priority Date/Time Associated Diagnosis Comme nts HD KINETICS Routine 06/25/2022 Results for thi [...] section . SPECTRA JALEEL LAB RESULTS Routine 06/25/2022 Resul ts for this procedure are i n the results section . documented in this encounter Results Spectra JALEEL Lab Results (06/25/2022) P athologist Signature spKt/V 1.36 JALEEL (Daugirdas [...] Code Phon e Number JALEEL HD KINETICS (06/25/2022) athologist Signature % Urea 71 65 - 80 % APS SPECTRA Reduction [facility] Specimen (Source) Anatomical Collection Method Collection Time Re ceived Time Location / / Volume Laterality 06/25/2022 06/27/2022 8:15 AM CDT Resulting Agency Comment Specimen source: Plasma Denilson Holly MD LAB BLOOD ORDERABLES Performing Organization Address City/State/ZIP Code Phon e Number APS SPECTRA [facility] POST CHEMISTRY (06/25/2022) athologist Signature BUN Post 7 6 - 19 APS SPECTRA Dialysis mg/dL [facility] Specimen (Source) Anatomical Collection Method Collection Time Re ceived Time Location / / Volume Laterality 06/25/2022 06/27/2022 8:15 AM CDT Narrative APS SPECTRA [facility] - 06/27/2022 Unless otherwise specified, test(s) performed at: [facility], [address] [place] [address], [place] [address] ENROLLMENT SPECIALIST: Raheem Malik M.D., Ph.D For any questions, please call customer service at FREQUENCY:MONTHLY Resulting Agency Comment Specimen source: Plasma Denilson Holly MD LAB BLOOD ORDERABLES Performing Organization Address City/State/ZIP Code Phon e Number APS SPECTRA [facility] IMMUNO CHEMISTRY (06/25/2022) athologist Signature Hep B Surface Negative Negative [...] general public, refer to MMWR Decemb er 232004/Vol.54 (No. 16); 1-23, and for healthcare workers, [...] 06/27/2022 Unless otherwise specified, test(s) performed at: [facility], [address] [place] [address] [address] [facility], [place] [address] ENROLLMENT SPECIALIST: Raheem Malik M.D., Ph.D For any questions, please call customer service at FREQUENCY:MONTHLY Resulting Agency Comment Specimen source: Plasma Denilson Holly MD LAB BLOOD ORDERABLES Performing Organization Address City/State/ZIP Code Phon e Number APS SPECTRA [facility] (ABNORMAL) Spectrae Chemistry (06/25/2022) P athologist Signature BUN 24 (H) 6 [...] 06/27/2022 Unless otherwise specified, test(s) performed at: [facility], [address] [place] [address], [place] [address] ENROLLMENT SPECIALIST: Raheem Malik M.D., Ph.D For any questions, please call customer service at FREQUENCY:MONTHLY Resulting Agency Comment Specimen source: Serum Denilson Holly MD LAB BLOOD ORDERABLES Performing Organization Address City/State/ZIP Code Phon e Number APS SPECTRA [facility] (ABNORMAL) HEMATOLOGY (06/25/2022) [facility] [place] gist Method Time Signature WBC 4.15 (L) [...] 06/27/2022 Unless otherwise specified, test(s) performed at: [facility], [address] [place] [address], [place] [address] ENROLLMENT SPECIALIST: Raheem Malik M.D., Ph.D For any questions, please call customer service at FREQUENCY:MONTHLY Resulting Agency Comment Specimen source: Blood Denilson Holly MD LAB BLOOD ORDERABLES Performing Organization Address City/State/ZIP Code Phon e Number APS SPECTRA [facility] documented in this encounter Visit Diagnoses Not on filedocumented in this encounter
--- OUTSIDE RECORDS SUMMARY | 2022-07-03 14:22 | XMS_ITS | Encounter Summary ---
:1940 Author Organization [facility] Address [address] [place] [address] Care Team Providers Name Role Phone Unavailable Primary Care Provider Unavailable Encounter Details Date Type Department Care Team Description 06/13/2022 Orders Only [facility] O f Denilson Quinones MD [phone] [place] [address] [place], [place] [phone] (Wo rk) Social History Tobacco Use [...] URINE CLEARANCE (06/13/2022) [facility] Time Signature Urea Nitrogen, 177 mg/dL APS [...] 06/14/2022 Unless otherwise specified, test(s) performed at: [facility], [address] [place] [address], [place] [address] DAYCARE ASSISTANT: Raheem Malik M.D., Ph.D For any questions, please call customer service at FREQUENCY:OTHER Resulting Agency Comment Specimen source: Urine Denilson Holly MD LAB URINE ORDERABLES Performing Organization Address City/[facility] Phon e Number APS SPECTRA [facility] (ABNORMAL) Spectrae Chemistry (06/13/2022) athologist Signature Creatinine 2.31 (H) 0.60 - 1.30 APS SPECTRA mg/dL [facility] Comment: Custom Exception Specimen (Source) Anatomical Collection Method Collection Time Re ceived Time Location / / Volume Laterality 06/13/2022 06/14/2022 2:50 AM CDT Resulting Agency Comment Specimen source: Serum Denilson Holly MD LAB BLOOD ORDERABLES Performing Organization Address [facility] Phon e Number APS SPECTRA [facility] [...] 06/14/2022 Unless otherwise specified, test(s) performed at: [facility], [address] [place] [address], [place] [address] DAYCARE ASSISTANT: Raheem Malik M.D., Ph.D For any questions, please call customer service at FREQUENCY:OTHER Resulting Agency Comment Specimen source: PD Fluid Denilson Holly MD LAB BLOOD ORDERABLES Performing Organization Address [facility] Phon e Number APS SPECTRA [facility] [...] 06/14/2022 Unless otherwise specified, test(s) performed at: [facility], [address] [place], [place] [address]ann [place] [address] DAYCARE ASSISTANT: Raheem Malik M.D., Ph.D For any questions, please call customer service at FREQUENCY:OTHER Resulting Agency Comment Specimen source: PD Fluid Denilson Holly MD LAB BLOOD ORDERABLES Performing Organization Address [facility] Phon e Number APS SPECTRA [facility] documented in this encounter Visit Diagnoses Not on filedocumented in this encounter
--- OUTSIDE RECORDS SUMMARY | 2022-07-03 14:22 | XMS_ITS | Encounter Summary ---
:1940 Author Organization [facility] Address [address] [place] [address] Care Team Providers Name Role Phone Unavailable Primary Care Provider Unavailable Encounter Details Date Type Department Care Team Description 05/21/2022 Orders Only [facility] O f Denilson Quinones MD [phone] [place] [address] [place], [place] [phone] (Wo rk) Social History Tobacco Use [...] 05/27/2022 Unless otherwise specified, test(s) performed at: [facility], [address] [place] [address], [place] [address] VETERINARY MEDICAL OFFICER: Raheem Malik M.D., Ph.D For any questions, [...] 24 mL/min APS SPECTRA 2020 [facility] Comment: [facility] has implemented the recommended eGFR calculation that [...] 05/27/2022 Unless otherwise specified, test(s) performed at: [facility], [facility] [place] [address] [facility] [place] [address] VETERINARY MEDICAL OFFICER: Raheem Malik M.D., Ph.D For any questions, please call customer service at FREQUENCY:MONTHLY Resulting Agency Comment Specimen source: Serum Denilson Holly MD LAB HYYORAWJNA-[id number] NSOLICITED RESULTS Performing Organization Address City/State/[facility] Code Phon e Number APS [...] 05/22/2022 Unless otherwise specified, test(s) performed at: [facility], [address] [place] [address] [address] [place] [facility] [place] [address] VETERINARY MEDICAL OFFICER: Raheem Malik M.D., Ph.D For any questions, [...] 05/22/2022 Unless otherwise specified, test(s) performed at: [facility], [address] [place] [address], [place] [address] VETERINARY MEDICAL OFFICER: Raheem Malik M.D., Ph.D For any questions, [...] 05/22/2022 Unless otherwise specified, test(s) performed at: [facility], [address] [place] [address] [address] [place] [address] VETERINARY MEDICAL OFFICER: Raheem Malik M.D., Ph.D For any questions, please call customer service at FREQUENCY:MONTHLY Resulting Agency Comment Specimen source: Blood Denilson Holly MD LAB BLOOD ORDERABLES Performing Organization Address City/State/ZIP Code Phon e Number APS SPECTRA [facility] documented in this encounter Visit Diagnoses Not on filedocumented in this encounter
--- OUTSIDE RECORDS SUMMARY | 2022-07-03 14:22 | XMS_ITS | Clinical Summary ---
:1940 Author Organization [email or web address] [place] [address] Care Team Providers Name Role Phone Marija Ramirez MD Primary Care Provider [phone] [facility], [place] Unavailable [phone] Allergies Active Allergy Reactions Severity Noted Date Comments Amlodipine 03/05/2009 Foot swelling Procaine Hives 02/17/2006 Penicillins Hives 02/17/2006 Medications Medication Sig Dispensed Refills Start End Status Date Date TYLENOL ARTHRITIS Takes 1 tablet as 0 06/27/20 Active 650 MG TAB needed. 09 atorvastatin Take 1 Tablet (40 90 tablet. 3 09/04/20 Active (LIPITOR) 40 mg mg) by mouth once 21 tabletIndications: daily. Hyperlipidemia, unspecified hyperlipidemia type apixaban (Eliquis) Take 1 Tablet 180 tablet. 3 09/04/20 Active 2.5 mg (2.5 mg) by mouth 21 tabletIndications: 2 times daily. Transient cerebral ischemia, unspecified type furosemide (LASIX) Take 2 Tablets 180 tablet. 3 10/03/20 Active 20 mg (40 mg) by mouth 21 tabletIndications: every morning. Chronic renal failure, stage 3b (HC) Sennosides 8.6 mg Take 1 Capsule by 0 04/28/20 Active cap mouth in the 22 morning and 1 Capsule in the evening. ascorbic acid, Take 500 mg by 0 04/28/20 Active vitamin C, 500 mg mouth 2 times 22 cap daily. lansoprazole Take 1 Capsule by 0 06/14/20 Active (PREVACID) 15 mg mouth once daily. 22 capsule melatonin 10 mg Take 1 Tablet (10 0 06/24/20 Active tab mg) by mouth at 22 bedtime. metoprolol Take 0.5 Tablets 45 Tablet 3 06/24/20 Ac tive tartrate (12.5 mg) by 22 (LOPRESSOR) 25 mg mouth two times tabletIndications: daily. Essential hypertension HYDROcodone-acetam Take 1 Tablet by 24 Tablet 0 04/12/2003/20 Discontinued inophen (NORCO) mouth every 4 (*Med 5-325 mg per hours if needed c omplete/Regime tabletIndications: for Pain. Max n Primary acetaminophen comple te/Level osteoarthritis of dose: 4000 mg in of care change) right hip 24 hrs. pramipexole Take 1 Tablet 90 Tablet 3 09/04/20 Disc ontinued (MIRAPEX) 0.5 mg (0.5 mg) by mouth (*Patient tabletIndications: at bedtime. states no Restless legs longer syndrome (RLS) takin g/Not on sending facility l ist) terazosin (HYTRIN) Take 1 Capsule (5 90 capsule. 3 09/04/20 0 Discontinued 5 mg mg) by mouth at (*Pa tient capsuleIndications bedtime. s tates no : Essential longer hypertension taking/ Not on sending facility l ist) metoprolol Take 1 Tablet (50 180 tablet. 3 09/04/20 Discontinued tartrate mg) by mouth 2 (*Med ication (LOPRESSOR) 50 mg times daily. adjustment) tabletIndications: Essential hypertension lisinopriL Take 1 Tablet (10 90 Tablet 3 09/04/20 D iscontinued (PRINIVIL; mg) by mouth once ( *Medication ZESTRIL) 10 mg daily. adjus tment) tabletIndications: Essential hypertension furosemide (LASIX) Take 2 Tablets 180 tablet. 3 10/03/2003/20 Discontinued 20 mg (40 mg) by mouth (Du plicate tabletIndications: every morning. therapy Chronic renal (E-can wilton not failure, stage 3b se nt)) (HC) amiodarone Administer 200 mg 0 03/12/20 D iscontinued (CORDARONE) 200 mg through feeding (*Med tablet tube once daily. com plete/Regime n complete/L evel of care jose roberto) ciprofloxacin HCl Take 500 mg by 0 04/28/20 Discontinued (Cipro) 500 mg mouth once daily. 022 (*Med tablet complete/R egime n complete/L evel of care jose roberto) melatonin 3 mg Take 3 mg by 0 04/28/20 Di scontinued tablet mouth at bedtime. (* Patient states no longer taking/Not on sending facility l ist) Midodrine HCl 10 Administer 10 mg 0 03/11/20 Discontinued mg tablet through feeding (*Pa tient tube in the states n o morning and 10 mg lo nger at noon and 10 mg ta teressa/Not on in the evening. send ing facility l ist) Active Problems Problem Noted Date Red blood [...] (HC). 04/2017. Hospitalized for th is at [place] 05/15/2017 Overview: Thought to be secondary to [...] 10/03/2009 11/22/2013 [facility] 11/22/2013 facility Overview: Discussed colonoscopy - he'll consider Hyperglycemia 11/27/2008 11/22/2013 Encounters Date Type Specialty Care Team Description 06/24/2022 Office Visit Marija Ramirez Medicare AN KENDALL Daley MD (subsequent) Vi sit; Follow Up; Medi cation Management 06/24/2022 Telephone Marija Ramirez Follow Up MD Thuy 06/24/2022 Travel 06/19/2022 Home Care Visit Jeanette Hunt, JOSE SN - NOT TAKEN UNDER HOME CARE - [facility] E VISIT 06/17/2022 Telephone Marija Ramirez Referral MD Thuy 05/30/2022 Orders Only Scanner <No scans attac hed> 04/30/2022 Hospital Encounter Lillian Peterson, TAPE MAKER P soas abscess, left (HC) 04/30/2022 Travel 04/14/2022 Lab Requisition Odilon Carrera MD from Last 3 Months Immunizations Name Administration Dates Next Due AMB INFLUENZA IIV3 (AGE 65+ YRS) PF (Flu Clinic Only) 2017 COVID-19 vaccine ([employer] 30mcg/0.3mL) PF, 1, 11/15/2020 MDV Hep B (Hepatitis B (Adult) Recombinant Adjuvanted) 2 Hepatitis B (Adult) 06/18/2022 Hepatitis B, Unspecified 07/25/1991, 01/31/1991 Influenza Virus, [...] Yes Alcohol Use Standard Drinks/Week Comments Yes 1 (1 standard drink = 0.6 oz pure alcoho l) Sex Assigned at Date Recorded Not on file COVID-19 Exposure Response Date Recorded In the last 10 days, have you been in contact with No / Unsu re 06/24/2022 1:05 PM CDT someone who was confirmed or suspected to have Coronavirus/COVID-19? Obstetrics History Last Filed Vital Signs Vital Sign Reading Time Taken Comments Blood Pressure 110/68 06/24/2022 1:47 PM CDT Pulse 76 06/24/2022 1:47 PM CDT Temperature 36.3 ??C (97.3 ??F) 04/30/2022 12:38 PM CDT Respiratory Rate 15 04/30/2022 3:30 PM CDT Oxygen Saturation 98% 06/24/2022 1:47 PM CDT Inhaled Oxygen Concentration - - Weight 72.1 kg (159 lb) 06/24/2022 1:47 PM CDT Height 170.2 cm (5' 7) 04/30/2022 12:38 PM CDT Body Mass Index 24.9 04/30/2022 12:38 PM CDT Plan of Treatment Upcoming Encounters Date Type Specialty Care Team Description 09/16/2022 Office Visit Moises Patterson MD [address] [place] [address] [phone] (Wo rk) Health Maintenance Due Date Last Done Comments Hepatitis C screening for age 1108/28/1958 18-79 Zoster (shingles) series for age 1108/28/1959 50+ (1 of 2) Tetanus booster 06/27/2019 06/27/2009, 07/03/1995 BMI (ht and wt on same day) for 02/21/2022 02/21/2021, 08/19, age 18+ 08/10/2020, Additional history exists Influenza for age 65+ 06/19/2022 08/16/2021, 08/10/2020, 08/12/2018, Additional history exists Depression screening for age 12+ 06/24/2023 06/24/2022, 03/2022, 03/04/2019, Additional history exists Medicare Wellness for age 65+ 06/24/2023 06/24/2022 Tdap Completed 06/27/2009 (Completed outside of [facility]) Pneumococcal series for age 65+ Completed 12/02/2016, 11/19, 10/03/2009, Additional history exists COVID-19 vaccine series Completed 05/30/2022, 07/25/2021, 12/04/2020, Additional history exists Goals Goal Patient Goal Associated Recent Patient-Stated? Author Type Problems Progress BLOOD PRESSURE Blood Pressure No Yessenia barrera, - MAINTAINS BP Jami Matute less than 140/90 Medical Devices Implanted Type Area Rn Endocrinology Device Shelf Model / Identifier Expiration Serial / Date Lot Screw Canclls 4.0x15mm [id number] - [id number] Spine [employer] [id number] / Implanted: Qty: 3 on 02/18/2006 at [facility] Implan ts / Plate 42.5mm Zephir - [id number] [employer]ANEK [id number] / Implanted: Qty: 1 on 02/18/2006 at [facility] / Procedures Procedure Name Priority Date/Time [...] PM CDT Uncomplicated CT-guided placement of a 12-Polish Ballard Bah drainage catheter into the left psoas fluid collection. Please note that [facility] use dose modulation, iterative reconstruction, and/or weight-based dosing when appropriate to reduce radiation dose to as low as reasonably achievable. Dictated by Orin Goff MD @ 2021 3:55:47 PM (Electronically Signed) Narrative 04/30/2022 3:55 PM CDT For Patients: ??As a result of the Cures Act, medical imaging exams and procedure report s are released immediately into your [facility] medical record. ??You may view this [...] hemorrhage and an informed consent was obtained. [place] protocol was observed. Time-out was conducted. With [...] the tract was dilated and a 12- Polish Ballard Bah drainage catheter was placed. At [...] IV during the procedure Procedure Note Orin Goff MBBS - 04/30/2022For matting of this note might be different from the original. For Patients: As a result of the ntury Cures Act, medical imaging exams and procedure reports are released immediately into your electronic medical record. You may view this report before your referring provider. If you have questions, please contact yo health care provider. INDICATION: Possible left psoas abscess; needs drain age. Technique : CT-guided placement of a drainage cathet er into the left psoas fluid collection. PROCEDURE: The procedure was explained to the patie nt including the possible complications of hemorrhage and an informed consent was obtained. [place] protocol was observed. Time-out was conducted. With [...] guidewire the tract was dilated and a 12-Polish Ballard Bah drainage cath eter was placed. [...] IMPRESSION: Uncomplicated CT-guided placement of a 1 2-Polish Ballard Bah drainage catheter into the left psoas fluid collection. Please note that all CT scans at this [facility] use dose modulation, iterative reconstruction, and/or weight-based dosing when appropriate to reduce radiation dose to as low as reasonably achievable. Dictated by Orin Goff MD @ 2021 3:55:47 PM (Electronically Signed) Lillian Peterson NP CT BODY FLUID CULTURE,STAIN (AEROBIC) (04/30/2022 2:21 PM CDT) [facility] Method Time Signature CULTURE No Growth. 05/03/2022 [facility] 9:06 AM CDT LABORATORY-LANI TRAL LABORATORY GRAM STAIN No PMNs 05/03/2022 [facility] 9:06 AM CDT LABORATORY-LANI TRAL LABORATORY GRAM STAIN No organisms 05/03/2022 [facility] seen 9:06 AM CDT LABORATORY-LANI TRAL LABORATORY Specimen Anatomical Collection Method Collection Time Receive d Time (Source) Location / / Volume Laterality Body Fluid BODY FLUID SAMPLE Non-Blood / 04/30/2022 2:21 PM 04/18 2:45 / Unknown Unknown CDT PM CDT Lillian Peterson NP MICROBIOLOGY Performing Organization Address City/State/ZIP Code Phon e Number [facility] [address] [place] [address] LABORATORY-CENTRAL 2000 LABORATORY ANAEROBIC CULTURE (04/30/2022 2:21 PM CDT) [facility] Method Time Signature CULTURE No anaerobes 05/05/2022 [facility] isolated 11:02 AM CDT LABORATORY-LANI TRAL LABORATORY Specimen Anatomical Collection Method Collection Time Receive d Time (Source) Location / / Volume Laterality Other (Other) Non-Blood / 04/30/2022 2:21 PM 04/30/20 2:45 Unknown CDT PM CDT Lillian Peterson NP MICROBIOLOGY Performing Organization Address City/State/ZIP Code Phon e Number [facility] [address] [place] [address] LABORATORY-CENTRAL 1999 LABORATORY (ABNORMAL) Platelet Count (04/30/2022 12:15 PM CDT) [facility] PLATELET COUNT 208 140 - 440 04/30/2022 [facility] thou/cu mm 12:31 PM CDT LABORATORY-LANI TRAL LABORATORY MPV 11.1 (H) 6.5 - 11.0 04/30/2022 [facility] fL 12:31 PM CDT LABORATORY-LANI TRAL LABORATORY Specimen Anatomical Collection Method / Collection Time Recei fany Time (Source) Location / Volume Laterality Blood BLOOD SPECIMEN / Venipuncture / 04/30/2022 12:15 04/30 Unknown Unknown PM CDT 12:25 PM CDT Orin Goff MBBS HEMATOLOGY Performing Organization Address City/State/ZIP Code Phon e Number [facility] [address] [place] [address] LABORATORY-CENTRAL 1999 LABORATORY (ABNORMAL) Hemoglobin (04/30/2022 12:15 PM CDT) athologist Signature HEMOGLOBIN 10.8 (L) 13.5 - 04/30/2022 [facility] 17.5 g/dL 12:31 PM CDT LABORATORY-CENT RAL LABORATORY MCV 94 80 - 100 04/30/2022 [facility] fL 12:31 PM CDT LABORATORY-CENT RAL LABORATORY Specimen Anatomical Collection Method / Collection Time Recei fany Time (Source) Location / Volume Laterality Blood BLOOD SPECIMEN / Venipuncture / 04/30/2022 12:15 04/30 Unknown Unknown PM CDT 12:25 PM CDT [facility] HEMATOLOGY Performing Organization Address City/[facility]/ZIP Code Phon e Number [facility] [address] [place] [address] LABORATORY-CENTRAL 2000 LABORATORY Protime-INR (04/30/2022 12:15 PM CDT) athologist Signature INR 1.0 <1.3 04/30/2022 [facility] 12:38 PM CDT LABORATORY-CENTR AL LABORATORY PROTIME 13.0 11.8 - 13.9 04/30/2022 [facility] sec 12:38 PM CDT LABORATORY-CENTR AL LABORATORY Specimen Anatomical Collection Method / Collection Time Recei fany Time (Source) Location / Volume Laterality Blood BLOOD SPECIMEN / Venipuncture / 04/30/2022 12:15 04/30 Unknown Unknown PM CDT 12:25 PM CDT Narrative [facility] LABORATORY-CENTRAL LABORAT ORY - 04/30/2022 12:38 PM [...] seconds if the patient is on UFH. [facility] HEMATOLOGY Performing Organization Address City/State/ZIP Code Phon e Number [facility] [address] [place] [address] LABORATORY-CENTRAL 2000 LABORATORY from Last 3 Months Insurance Payer Benefit Plan / Subscriber ID Effective Dates Phone Addre ss Type Group MEDICARE PART MEDICARE PART [id number] 2007-[place] B - [place] USE B HB ONLY nt [address] [place] [address] MEDICARE PART MEDICARE PART [id number] 2007-[place]: [place] A - [place] USE A HB ONLY nt [address] [place] [address] MEDICARE PPS HC MEDICARE [id number] 2007-Prese PO GERI X 2019 PPS nt [address] [place] [address] BLUE CROSS MR BLUE CROSS [id number] 2016-Presen [address] [address] [employer] [place], [place] ONLY [id number] BLUE CROSS BLUE CROSS [id number] 2016-[place] [address] [address] [employer] [place], [place] ONLY [id number] Speedy Hendricks Personal/Family Self 1940 59 [address] [facility] (Home) [place] [phone] [place], [place] (Work) [address] Advance Directives Latest Code Status on File Code Status Date Activated Date Inactivated Comments Full Code 04/30/2022 12:01 PM 05/01/2022 2:22 AM Code Status Discussion: Reviewed Preferences Full Code 02/18/2006 7:54 PM 02/20/2006 1:40 PM Full Code 02/18/2006 4:12 PM 02/18/2006 7:54 PM Full Code 02/18/2006 9:49 AM 02/18/2006 4:12 PM Care Teams Music Mixer Relationship Specialty Start Date End Date Marija Ramirez MD PCP - General Family Practice 05/13/18 [address] [place] [address] Robert Youssef 06/17/22 [address] [place] [facility] [place] [address]
--- OUTSIDE RECORDS SUMMARY | 2022-07-03 14:23 | XMS_ITS | Encounter Summary ---
:1940 Author Organization [place] Address [address] [facility] [place] [address] Care Team Providers Name Role Phone [facility], [facility] Primary Care Provider [phone] Reason for Referral Diagnostic Imaging CT Scan (Routine) - Closed Specialty Diagnoses / Procedures Referred By Contact Refer red To Contact Radiology. 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 (H) Butch Brown MD Rh Ct Scan [facility] Procedures CT Chest Abdomen Pelvis w/o Contrast [address] [place] [address] [place] [address] [place] [address] Phone: Fax: Referral ID Status Reason Start Date Expiration Date Visits Requ ested Visits Authorized [id number] Closed 05/17/2019 05/16/2020 1 1 Encounter Details Date Type Department Care Team Description 05/17/2019 Orders Only [facility] Butch Brown Abdominal aortic [facility] Félix Jay MD aneurysm (AAA) without [address] ru pture (H) (Primary [address] Dx) [place] [address] [place] [address] [phone] Social History Tobacco Use Types Packs/Day Years [...] Abdomen Pelvis w/o Contrast (11/09/2019 11:25 AM RELIGIOUS ASSISTANT) Anatomical Region Laterality Modality Abdomen/Pelvis, SUBRAD CT BODY, UMP CT CHEST, UMP CT Computed Tomography ABDOMEN PELVIS, Chest, RAD CT Specimen (Source) Anatomical Location Collection Method / Collectio n Time Received Time / Laterality Volume Impressions 11/09/2019 3:17 PM RELIGIOUS ASSISTANT IMPRESSION: 1. 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 2. The aneurysm sac in the distal thorac ic aorta and an infrarenal abdominal aortic aneurysm have increased slightly in size since the previous exam. 3. Moderate age-indeterminate anterior c ompression of the T7 vertebral body is new since the previous exam. JON NICHOLS MD Narrative 11/09/2019 3:[address] CHEST, ABDOMEN AND PELVIS WITHOUT CONTRAST [...] as of this encounter Care Teams Senior Instructor Relationship Specialty Start Date End Date [facility], [facility] PCP - General 05/12/[address] [place] [address] documented as of this encounter
--- OUTSIDE RECORDS SUMMARY | 2022-07-03 14:23 | XMS_ITS | Encounter Summary ---
:1940 Author Organization [place] Address [address] [place] [address] Care Team Providers Name Role Phone Clinic, [facility] Primary Care Provider [phone] Reason for Visit Reason Onset Date Comments Forms 06/30/2019 Encounter Details Date Type Department Care Team Description 06/30/2019 Telephone [facility] Jon White, Forms [address] [place] [address] [phone] (Wo rk) Social History Tobacco Use Types [...] back and records faxed to them at [phone].Desire De Oliveira RN Telephone Encounter - Mallory Montgomery RN - 06/30/2019 1:04 PM CDT Flor over at [facility] called requesting patient records from [...] frustrated by the situation. Faxed form to [facility]. Flor voiced understanding. JOSE Lockwood-BSN-N [facility] [phone] documented in this encounter Plan of Treatment Not on filedocumented as of this encounter Visit Diagnoses Not on filedocumented in this encounter Additional Health Concerns Infection Onset Date Last Indicated Resolved Time MRSAComment: Positive 02/17/11 and 09/22/12 11/05/2018 019 Negatives 05/03/14 (HE), 12/01/14 (HE) documented as of this encounter Care Teams Manager Clinical Services Relationship Specialty Start Date End Date [facility], [facility] PCP - General 05/12/[address] [place] [address] documented as of this encounter
--- OUTSIDE RECORDS SUMMARY | 2022-07-03 14:23 | XMS_ITS | Encounter Summary ---
:1940 Author Organization [facility] Address [address] [place] [address] Care Team Providers Name Role Phone Unavailable Primary Care Provider Unavailable Encounter Details Date Type Department Care Team Description 04/16/2022 Office Communication [facility] [place] MD [address] [place] [phone] Social History Tobacco Use [...]
--- OUTSIDE RECORDS SUMMARY | 2022-07-03 14:23 | XMS_ITS | Encounter Summary ---
:1940 Author Organization [place] Address [address] [place] [address] Care Team Providers Name Role Phone Clinic, [facility] Primary Care Provider [phone] Reason for Visit Reason Comments Skin Check FSE Encounter Details Date Type Department Care Team Description 06/02/2019 Office Visit [facility] Jon White of skin cancer (Primary Dx); Clinic Norton MD Aubrey Lentigo; [place] [address] Seborrheic keratosis; [address] [address] Angioma of skin; [place], [place] [phone] Dermal nevus ; [phone] (Work) Basal cell carcinoma (BCC) of anterior c hest; [phone] Basal wilton l carcinoma (BCC) of sideburn [...] CDT Wound Care Instructions FOR SUPERFICIAL WOUNDS [facility] [phone] [facility] [phone] AFTER 24 HOURS YOU SHOULD REMOVE THE [...] file Gets together: Not on file Attends jehovah's witness service: Not on file Active member of club or organization: Not on file Attends meetings of clubs or organizations: Not on file Relationship status: Not on file ??? Intimate partner violence: Fear of current or ex partner: Not on file Emotionally abused: Not on file Physically abused: Not on file Forced sexual activity: Not on file Other Topics Concern ??? Parent/sibling w/ CABG, ND or angioplasty before 65F 55M? Not Asked [...] 87.5 kg (193 lb). . JOSE Lockwood-BSN-N [facility] [phone] documented in this encounter Plan of Treatment [...] documented as of this encounter Care Teams Core Shaper Top Relationship Specialty Start Date End Date Clinic, [facility] PCP - General 05/12/[address] [place] [address] documented as of this encounter
--- OUTSIDE RECORDS SUMMARY | 2022-07-03 14:23 | XMS_ITS | Encounter Summary ---
:1940 Author Organization [place] Address [address] [place] [address] Care Team Providers Name Role Phone [facility], [facility] Primary Care Provider [phone] Encounter Details Date Type Department Care Team [...] documented as of this encounter Care Teams Sex Worker Or Escort Relationship Specialty Start Date End Date [facility], [facility] PCP - General 05/12/[address] [place] [address] documented as of this encounter
--- OUTSIDE RECORDS SUMMARY | 2022-07-03 14:23 | XMS_ITS | Encounter Summary ---
:1940 Author Organization [facility] Address [address] [place] [address] Care Team Providers Name Role Phone Clinic, [facility] Primary Care Provider [phone] Reason for Visit Reason Onset Date Comments Path Results 06/02/2019 Encounter Details Date Type Department Care Team Description 06/02/2019 [facility] Jon White, Path Results [address] [place] [address] [phone] (Wo rk) Social History Tobacco Use Types [...] : MOHS Surgery with Dr. Jon White, Records Analysis Manager to remove skin cancers. Thank you for allowing me to be involved in your health care and for choosing [facility]. If you have any questions or concerns please feel free to contact me at . Sincerely, Dr. Fernando White Telephone Encounter - Mallory Montgomery RN - 06/22/2019 9:06 AM CDT Called and LM for patient to call back in regards to scheduling x3 mohs appointments. ERMA LockwoodLaxmi [facility] [phone] Telephone Encounter - Mallory Montgomery RN - 06/17/2019 11:11 AM CDT Called and LM for patient to call back in regards to scheduling x3 mohs appointments. LENA Lockwood [facility] [phone] Telephone Encounter - Mallory Montgomery RN - 06/14/2019 10:15 AM CDT Called and LM for patient to call back in regards to scheduling x3 mohs appointments. LENA Lockwood [facility] [phone] Telephone Encounter - Mallory Montgomery RN - 06/13/2019 1:05 PM CDT Called and LM for patient to call back in regards to scheduling x3 mohs appointments. LENA Lockwood [facility] [phone] Telephone Encounter - Mallory Montgomery RN - 06/06/2019 4:22 PM CDT Called and spoke to patient. Educated patient on biopsy results- BCC x3. Educated patient on BCC andmohs. Patient stated his is currently in the hospital so he cannot schedule any appointments atthis time. Patient asked that I call him early next week. Patient voiced understanding. LENA Lockwood [facility] [phone] Telephone Encounter - Ryan Grady - 06/06/2019 3:44 PM CDT Please call patient on cell at [phone]. Telephone Encounter - Mallory Montgomery RN - 06/06/2019 8:40 AM CDT Called and LM for patient to call back in regards to biopsy results x3. LENA Lockwood [facility] [phone] Telephone Encounter - Mallory Montgomery RN - 06/03/2019 3:44 PM CDT Called and LM for patient to call back in regards to biopsy results x3. LENA Lockwood [facility] [phone] Telephone Encounter - Mallory Montgomery RN - [...] documented as of this encounter Care Teams Incinerator Plant Laborer Relationship Specialty Start Date End Date [facility], [facility] PCP - General 05/12/[address] [place] [address] documented as of this encounter
--- OUTSIDE RECORDS SUMMARY | 2022-07-03 14:23 | XMS_ITS | Encounter Summary ---
:1940 Author Organization [facility] Address [address] [place] [address] Care Team Providers Name Role Phone Unavailable Primary Care Provider Unavailable Encounter Details Date Type Department Care Team Description 05/14/2022 Orders Only [facility] Denilson Quinones MD [address] [place] [address] [place], [place] [phone] (Wo rk) Social History Tobacco Use [...] 05/15/2022 Unless otherwise specified, test(s) performed at: [facility], [address] [place] [address] [place] [address] HEALTHCARE ADMINISTRATION INTERNSHIP: Raheem Malik M.D., Ph.D For any questions, [...] Organization Address City/[facility]/ZIP Code Phon e Number APS SPECTRA [facility] GFR (05/14/2022) P athologist Signature eGFR CKD-EPI CR 24 mL/min APS SPECTRA 2020 [facility] Comment: [facility] has implemented the recommended eGFR calculation that [...] accurate in DEJA or other non-steady s cadr clinical presentations including, but not limited to, [...] 05/15/2022 Unless otherwise specified, test(s) performed at: [facility], [address] [place] [address] [place] [address] HEALTHCARE ADMINISTRATION INTERNSHIP: Raheem Malik M.D., Ph.D For any questions, please call customer service at FREQUENCY:OTHER Resulting Agency Comment Specimen source: Serum Denilson Holly MD LAB [id number] NSOLICITED RESULTS Performing Organization Address City/State/ZIP Code Phon e Number APS SPECTRA [facility] documented in this encounter Visit Diagnoses Not on filedocumented in this encounter
--- OUTSIDE RECORDS SUMMARY | 2022-07-03 14:23 | XMS_ITS | Encounter Summary ---
:1940 Author Organization [place] Address [address] [place] [address] Care Team Providers Name Role Phone Clinic, [facility] Primary Care Provider [phone] Encounter Details Date Type Department Care Team [...] with No / Unsure 09/23/2021 10:26 AM POST ADOPTION COORDINATOR someone who was confirmed or suspected to have Coronavirus / COVID-19? documented as of this encounter Plan of Treatment Not on filedocumented as of this encounter Visit Diagnoses Not on filedocumented in this encounter Additional Health Concerns Infection Onset Date Last Indicated Resolved Time MRSAComment: Positive 02/17/11 and 09/22/12 11/05/2018 019 Negatives 05/03/14 (HE), 12/01/14 (HE) documented as of this encounter Care Teams Aircraft Shipping Checker Relationship Specialty Start Date End Date Clinic, [facility] PCP - General 05/12/17 [address] [id number] documented as of this encounter
--- OUTSIDE RECORDS SUMMARY | 2022-07-03 14:23 | XMS_ITS | Encounter Summary ---
:1940 Author Organization [facility] Address [address] [place] [address] Care Team Providers Name Role Phone Unavailable Primary Care Provider Unavailable Encounter Details Date Type Department Care Team Description 04/16/2022 Orders Only [facility] Denilson Quinones MD [address] [place] [address] [place], [place] [phone] (Wo rk) Social History Tobacco Use [...] Organization Address City/State/ZIP Code Phon e Number AJLEEL TRACE ELEMENTS (04/16/2022) P athologist Signature Aluminum <5 0 - 10 APS SPECTRA mcg/L [facility] Comment: This test was developed and its performa nce characteristics determined by [facility]. It has not been cleared or approved [...] 04/17/2022 Unless otherwise specified, test(s) performed at: [facility], [address] [place] [address] WARP PREPARER: Henok Correa M.D. For any questions, please call customer service at FREQUENCY:MONTHLY Resulting Agency Comment Specimen source: Serum Denilson Holly MD LAB BLOOD ORDERABLES Performing Organization Address City/[facility] Code Phon e Number APS SPECTRA [...] above test result was obtained using Siemens Analytics Enginesaur XP chemiluminescent method. Results obtaine d with different assay methods or kits cannot be used interchangeably. Specimen (Source) Anatomical Collection Method Collection Time Re ceived Time Location / / Volume Laterality 04/16/2022 04/17/2022 9:14 AM CDT Narrative APS SPECTRA [facility] - 04/17/2022 Unless otherwise specified, test(s) performed at: [facility], [address] [place] [address] WARP PREPARER: Henok Correa M.D. For any questions, please call customer service at FREQUENCY:MONTHLY Resulting Agency Comment Specimen source: Serum Denilson Holly MD LAB BLOOD ORDERABLES Performing Organization Address City/[facility] Code Phon e Number APS SPECTRA [facility] (ABNORMAL) [facility]rae Chemistry (04/16/2022) P athologist Signature PTH 108 (H) 16 - 80 APS SPECTRA pg/mL [facility] Specimen (Source) Anatomical Collection Method Collection Time Re ceived Time Location / / Volume Laterality 04/16/2022 04/17/2022 9:16 AM CDT Narrative APS SPECTRA [facility] - 04/17/2022 Unless otherwise specified, test(s) performed at: [facility], [address] [place] [address] WARP PREPARER: Henok Correa M.D. For any questions, please call customer service at FREQUENCY:MONTHLY Resulting Agency Comment Specimen source: Plasma Denilson Holly MD LAB BLOOD ORDERABLES Performing Organization Address City/[facility] Code Phon e Number APS SPECTRA [facility] HD KINETICS (04/16/2022) P athologist Signature % Urea 69 65 - 80 % APS SPECTRA Reduction [facility] Specimen (Source) Anatomical Collection Method Collection Time Re ceived Time Location / / Volume Laterality 04/16/2022 04/17/2022 9:14 AM CDT Resulting Agency Comment Specimen source: Serum Denilson Holly MD LAB BLOOD ORDERABLES Performing Organization Address City/[facility]/ZIP Code Phon e Number APS SPECTRA [facility] POST CHEMISTRY (04/16/2022) P athologist Signature BUN Post 18 6 - 19 APS SPECTRA Dialysis mg/dL [facility] Specimen (Source) Anatomical Collection Method Collection Time Re ceived Time Location / / Volume Laterality 04/16/2022 04/17/2022 9:08 AM CDT Narrative APS SPECTRA [facility] - 04/17/2022 Unless otherwise specified, test(s) performed at: [facility], [address] [place] [address] WARP PREPARER: Henok Correa M.D. For any questions, please [...] 04/17/2022 Unless otherwise specified, test(s) performed at: [facility], [address] [place], [place] [id number] WARP PREPARER: Henok Correa M.D. For any questions, please call customer service at FREQUENCY:MONTHLY Resulting Agency Comment Specimen source: Serum Denilson Holly MD LAB BLOOD ORDERABLES Performing Organization Address City/State/ZIP Code Phon e Number APS SPECTRA [facility] GFR (04/16/2022) P athologist Signature eGFR CKD-EPI CR 28 mL/min APS SPECTRA 2020 [facility] Comment: [facility] has implemented the recommended eGFR calculation that [...] 04/17/2022 Unless otherwise specified, test(s) performed at: [facility], [address] [place] [address] WARP PREPARER: Henok Correa M.D. For any questions, please call customer service at FREQUENCY:MONTHLY Resulting Agency Comment Specimen source: Serum Denilson Holly MD LAB [id number] NSOLICITED RESULTS Performing Organization Address City/State/ZIP Code Phon e Number APS SPECTRA [facility] (ABNORMAL) HEMATOLOGY (04/16/2022) [facility] gist Method Time Signature WBC 7.73 [...] 04/17/2022 Unless otherwise specified, test(s) performed at: [facility], [address] [place] [address] WARP PREPARER: Henok Correa M.D. For any questions, please call customer service at FREQUENCY:MONTHLY Resulting Agency Comment Specimen source: Blood Denilson Holly MD LAB BLOOD ORDERABLES Performing Organization Address City/State/ZIP Code Phon e Number APS SPECTRA [facility] documented in this encounter Visit Diagnoses Not on filedocumented in this encounter
--- OUTSIDE RECORDS SUMMARY | 2022-07-03 14:23 | XMS_ITS | Encounter Summary ---
:1940 Author Organization [facility] Address [address] [place] [address] Care Team Providers Name Role Phone Unavailable Primary Care Provider Unavailable Encounter Details Date Type Department Care Team Description 05/14/2022 Treatment [facility] Denilson Quinones MD [address] [place], [place] [phone] (Wo rk) Social History Tobacco Use Types Packs/Day Years Used Date Smoking Tobacco: Never Assessed Sex Assigned at Date Recorded Not on file documented as of this encounter Miscellaneous Notes Dialysis Note - Denilson Holly MD - 05/14/2022 1:29 PM CDT Date: May 14, 2022 Patient Name: Speedy Hendricks : 1940 Chart #: [id number] Sex: M TAX INTERN: Denilson Holly MD LOCATION: [place] [phone] SCHEDULE: M-W-F 2nd Shift Chief Complaint: Acute [...] HD, but still requiring HD. Transferred from [place] rehab to [facility] here, hoping to get home. First Hd here today, dry weight much lower than what they had listed it appears. Med list reviewed from [facility], on midodrine for hypotension with HD. [...] Hx of above, complex co-morbidities, hospitalized in [place] for AAA rupture while on boat -> TEVAR extension on 01/03/22 -> multiple complications including ARF requiring CRRT/HD, staph pneumonia, chronic resp failure with long mech vent/trach (trach out), R hydropneumothorax, DVT, a-fih, UGI bleed, DIC, critical illness myopathy, sepsis, and dysphagia (had feeding tube, now removed). Went to rehab, transferred back to [place] to [facility] for ongoing rehab closer to home. He has [facility] and in [place]. His daughter Raquel is ICU/LMSW (ramone currently) and is very involved. Problem [...] procaine Unknown Med list reviewed from [facility] Adequacy & Blood Pressure: spKt/V Gotch 1.8 [...]
--- OUTSIDE RECORDS SUMMARY | 2022-07-03 14:23 | XMS_ITS | Encounter Summary ---
:1940 Author Organization [facility] Address [address] [place] [address] Care Team Providers Name Role Phone Unavailable Primary Care Provider Unavailable Encounter Details Date Type Department Care Team Description 05/02/2022 Orders Only [facility] f Denilson Quinones MD [address] [place] [address] [place], [place] [phone] (Wo rk) Social History Tobacco Use [...] 05/03/2022 Unless otherwise specified, test(s) performed at: [facility], [address] [place] [address] gideon [facility] [place] [address] SPECIAL EDUCATION ADMINISTRATOR: Raheem Malik M.D., Ph.D For any questions, [...] MD LAB BLOOD ORDERABLES Performing Organization Address City/[facility]/ZIP Code Phon e Number APS SPECTRA [facility] GFR (05/02/2022) P athologist Signature eGFR CKD-EPI CR 26 mL/min APS SPECTRA 2020 [facility] Comment: [facility] has implemented the recommended eGFR calculation that [...] 05/03/2022 Unless otherwise specified, test(s) performed at: [facility], [address] [place] [address] gideon [facility] [place] [address] SPECIAL EDUCATION ADMINISTRATOR: Raheem Malik M.D., Ph.D For any questions, please call customer service at FREQUENCY:OTHER Resulting Agency Comment Specimen source: Serum Denilson Holly MD LAB [id number] NSOLICITED RESULTS Performing Organization Address City/State/ZIP Code Phon e Number APS SPECTRA [facility] documented in this encounter Visit Diagnoses Not on filedocumented in this encounter
--- OUTSIDE RECORDS SUMMARY | 2022-07-03 14:23 | XMS_ITS | Encounter Summary ---
:1940 Author Organization [place] Address [address] [place] [address] Care Team Providers Name Role Phone [facility], [facility] Primary Care Provider [phone] Encounter Details Date Type Department Care Team [...] documented as of this encounter Care Teams Cut Off Sawyer [place] Relationship Specialty Start Date End Date [facility], [facility] PCP - General 05/12/[address] [place] [address] documented as of this encounter
--- OUTSIDE RECORDS SUMMARY | 2022-07-03 14:23 | XMS_ITS | Encounter Summary ---
:1940 Author Organization [facility] Address [address] [place] [address] Care Team Providers Name Role Phone Unavailable Primary Care Provider Unavailable Encounter Details Date Type Department Care Team Description 05/19/2022 Orders Only [facility] f Denilson Quinones MD [address] [place] [address] [place] [employer], [place] [phone] (Wo rk) Social History Tobacco Use [...] 24 mL/min APS SPECTRA 2020 [facility] Comment: [facility] has implemented the recommended eGFR calculation that [...] 05/20/2022 Unless otherwise specified, test(s) performed at: [facility], [address] [place] [address] DIRECTOR OF STUDENT FINANCIAL SERVICES: Raheem Malik M.D., Ph.D For any questions, please call customer service at FREQUENCY:OTHER Resulting Agency Comment Specimen source: Serum Denilson Holly MD LAB [id number] NSOLICITED RESULTS Performing Organization Address City/[facility] Phon e Number APS SPECTRA [...] 05/20/2022 Unless otherwise specified, test(s) performed at: [facility], [address] [place] [address] DIRECTOR OF STUDENT FINANCIAL SERVICES: Raheem Malik M.D., Ph.D For any questions, please call customer service at FREQUENCY:OTHER Resulting Agency Comment Specimen source: PD Fluid Denilosn Holly MD LAB BLOOD ORDERABLES Performing Organization Address City/[facility] Phon e Number APS SPECTRA [facility] documented in this encounter Visit Diagnoses Not on filedocumented in this encounter
--- OUTSIDE RECORDS SUMMARY | 2022-07-03 14:23 | XMS_ITS | Encounter Summary ---
:1940 Author Organization [facility] Address [address] [place] [address] Care Team Providers Name Role Phone Unavailable Primary Care Provider Unavailable Encounter Details Date Type Department Care Team Description 04/16/2022 Treatment [facility] Denilson Quinones MD [address] [place] [address] [place], [place] [phone] [phone] (Wo rk) Social History Tobacco Use Types Packs/Day Years Used Date Smoking Tobacco: Never Assessed Sex Assigned at Date Recorded Not on file documented as of this encounter Miscellaneous Notes Dialysis Note - Denilson Holly MD - 04/16/2022 3:44 PM CDT Date: Apr 16, 2022 Patient Name: Speedy Hendricks : 1940 Chart #: [id number] Sex: M Patient Type: DEJA Modality: Hemodialysis Victim Advocate: Denilson Holly MD Location: [place] [phone] Schedule: M-W-F 2nd Shift Initial Access Date [...] Name: Speedy Hendricks : 1940 Chart #: [id number] Sex: M RELIABILITY TECHNICIANS: Denilson Holly MD LOCATION: [phone] SCHEDULE: -W- 2nd Shift Chief Complaint: Acute kidney injury. The patient complains of the following - 04/16/22: Meeting patient today. Met with patient and his daughter Raquel. Patient saw me in clinic in past, baseline Cr 1.5 range. 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 Recently on Mon/Fri HD, but still requiring HD. Transferred from [place] rehab to [facility] here, hoping to get home. First Hd here today, dry weight much lower than what they had listed it appears. Med list reviewed from [facility], on midodrine for hypotension with HD. [...] Hx of above, complex co-morbidities, hospitalized in [place] for AAA rupture while on boat -> TEVAR extension on 01/03/22 -> multiple complications including ARF requiring CRRT/HD, staph pneumonia, chronic resp failure with long mech vent/trach (trach out), R hydropneumothorax, DVT, a-fih, UGI bleed, DIC, critical illness myopathy, sepsis, and dysphagia (had feeding tube, now removed). Went to rehab, transferred back to [place] to [facility] for ongoing rehab closer to home. [facility] [place] His daughter Raquel is ICU/DIRECTOR OF NUCLEAR MEDICINE (ramone currently) and is very involved. Problem [...] - Cath - Tunneled Will send to [facility] for AVF/AVG placement as on HD for [...]
--- OUTSIDE RECORDS SUMMARY | 2022-07-03 14:23 | XMS_ITS | Encounter Summary ---
:1940 Author Organization [facility] Address [address] [place] [address] Care Team Providers Name Role Phone Unavailable Primary Care Provider Unavailable Encounter Details Date Type Department Care Team Description 04/23/2022 Orders Only [facility] Denilson Quinones MD [address] [place] [address] [place], [place] [phone] (Wo rk) Social History Tobacco Use [...] and its performa nce characteristics determined by [facility]. It has not been cleared or approved by the FDA. The laboratory is regulated under CLIA a s qualified to perform high complexity testing. This test is used fo r clinical purposes. It should not be regarded as investigational or fo r research. Test performed at [facility], [address] [place] [address]. Telephone . [facility] Direct or: Henok Correa MD. Specimen (Source) Anatomical Collection Method Collection Time Re ceived Time Location / / Volume Laterality 04/23/2022 04/25/2022 7:04 PM CDT Narrative [facility] - 04/27/2022 Unless otherwise specified, test(s) performed at: [facility], [address] [place] [address], [place] [address] DIETARY SUPERVISOR: Raheem Malik M.D., Ph.D For any [...] for the general public, refer to MMWR [facility] 2004/Vol.54 (No. 16); -, and for healthcare [...] 04/26/2022 Unless otherwise specified, test(s) performed at: [facility], [address] [place] [address], [place] [address] DIETARY SUPERVISOR: Raheem Malik M.D., Ph.D For any [...] 04/25/2022 Unless otherwise specified, test(s) performed at: [facility], [address] [place] [address], [place] [address] DIETARY SUPERVISOR: Raheem Malik M.D., Ph.D For any [...] 04/25/2022 Unless otherwise specified, test(s) performed at: [facility], [address] [place] [address] [place] [address] DIETARY SUPERVISOR: Raheem Malik M.D., Ph.D For any [...] 04/25/2022 Unless otherwise specified, test(s) performed at: [facility], [address] [place] [address] [place] [address] DIETARY SUPERVISOR: Raheem Malik M.D., Ph.D For any questions, please call customer service at FREQUENCY:MONTHLY Resulting Agency Comment Specimen source: Serum Denilson Holly MD LAB BLOOD ORDERABLES Performing Organization Address City/State/ZIP Code Phon e Number [facility] documented in this encounter Visit Diagnoses Not on filedocumented in this encounter
--- OUTSIDE RECORDS SUMMARY | 2022-07-03 14:23 | XMS_ITS | Encounter Summary ---
:1940 Author Organization [place] Address [address] [place] [address]. [place] [address] Care Team Providers Name Role Phone Clinic, [facility] Primary Care Provider [phone] Reason for Visit Reason Onset Date Comments Appointment 05/28/2020 Encounter Details Date Type Department Care Team Description 05/28/2020 Telephone [facility] Vascular Ramiro Loco MD Appointment Clinic [place] [address] [place] [address] [place] [address] [phone] Social History Tobacco Use Types Packs/Day Years [...] 04/26/2020 and 05/28/2020 reminding patient to call [facility] & schedule an appointment per follow-up orders by Dr. Loco. These orders were expected to be completed by April,. No further attempts will be made to contact patient for scheduling per these follow-up orders. Carolyn [facility] [employer] Manager [facility] Office: [phone] documented in this encounter Plan of Treatment Not on filedocumented as of this encounter Visit Diagnoses Not on filedocumented in this encounter Additional Health Concerns Infection Onset Date Last Indicated Resolved Time MRSAComment: Positive 02/17/11 and 09/22/12 11/05/2018 019 Negatives 05/03/14 (HE), 12/01/14 (HE) documented as of this encounter Care Teams Certified Cytotechnologist Relationship Specialty Start Date End Date [facility] [place] P[facility] - General 05/12/[address] [place] [address] documented as of this encounter
--- OUTSIDE RECORDS SUMMARY | 2022-07-03 14:23 | XMS_ITS | Encounter Summary ---
:1940 Author Organization [place] Address [address] [place] [address] Care Team Providers Name Role Phone Clinic, [facility] Primary Care Provider [phone] Reason for Visit Reason Comments RECHECK *PREV Dr Lewis, Dr Brown & Dr Loco Pt - CTA done 08/08/21- History of thoracoabdominal aortic aneu rysm; TEVAR 11/05/18; 6 mo f/u to 11/09/[address] Loco *jj Pt is sti ll having back pain *LMB 08/19/21 - R/S from 08/29/21 *B 08/28/21 Encounter Details Date Type Department Care Team Description 09/23/2021 Office Visit [facility] Gallito Gonzalez Thoracoa bdominal aortic Vascular Clinic MD Eliel aneurysm (TAAA) without [place] [address] rupture (H) (Primary Dx) [address] [place] [address] [place] [address] Social History Tobacco Use [...] with No / Unsure 09/23/2021 10:26 AM PHOTOENGRAVING HELPER someone who was confirmed or suspected to have Coronavirus / COVID-19? documented as of this encounter Last Filed Vital Signs Vital Sign Reading Time Taken Comments Blood Pressure 161/78 09/23/2021 10:34 AM PHOTOENGRAVING HELPER Pulse 57 09/23/2021 10:34 AM PHOTOENGRAVING HELPER Temperature - - Respiratory Rate 16 09/23/2021 10:34 AM PHOTOENGRAVING HELPER Oxygen Saturation 99% 09/23/2021 10:34 AM PHOTOENGRAVING HELPER Inhaled Oxygen Concentration - - Weight 79.4 kg (175 lb) 09/23/2021 10:34 AM PHOTOENGRAVING HELPER Height 167.6 cm (5' 6) 09/23/2021 10:34 AM PHOTOENGRAVING HELPER Body Mass Index 28.25 09/23/2021 10:34 AM PHOTOENGRAVING HELPER documented in this encounter Progress Notes Von L[facility]os CMA - 09/23/2021 10:30 AM CST [facility] Vascular Clinic Patient is here for [...] and agency name: No Von Landeros CMA OENGRAVING HELPER Gallito Gonzalez MD - 09/23/2021 10:30 AM [...] I discussed the case with Dr. Orosco. 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
--- OUTSIDE RECORDS SUMMARY | 2022-07-03 14:23 | XMS_ITS | Encounter Summary ---
:1940 Author Organization [place] Address [address] [facility] [place] [address] Care Team Providers Name Role Phone Clinic, [facility] Primary Care Provider [phone] Reason for Visit Reason Onset Date Comments Clinic Care Coordination - Follow-up 11/15/2019 Encounter Details Date Type Department Care Team Description 11/15/2019 Telephone [facility] Ramiro Loco Cli [facility] Vascular Clinic Félix juarez MD Coordination - [address] Follow-up 340 [address] [place] [address] [place] [id number] (Wo rk) Social History Tobacco Use Types [...] 9:12 AM CST Order entered. SHASTA Winkler, RN-[facility] T [employer] M[employer]ER Telephone Encounter - Ro Taylor RN - 11/25/2019 2:34 PM CST Pt called back, left vm to discuss lab request (creat/gfr). I called pt back, pt reports labs completed on 11/24/19 at [facility] GFR 55 [facility]. I explained to pt he does not need another lab draw and we will work with these lab results. Pt notes understanding. Routing to Dr. Loco's nurse Leatha for placement of imaging order (to be done in 6 months) per Dr[address] Loco's request. SHASTA Sotomayor, JOSE [facility] T [employer]ER Telephone Encounter - Ro Taylor RN - 11/25/2019 1:49 PM CST Pt called back , left vm to discuss labs ordered by Dr. Loco. SHASTA Sotomayor, JOSE [facility] T [employer] Telephone Encounter - Ro Taylor RN - 11/15/2019 2:41 PM CST Creatinine check/lab order placed in [facility]. I called pt, left vm explaining he can get this checked at his convenience, upon results we will then order his follow up imaging and OV per Dr. Loco and to call if any questions. SHASTA Sotomayor, RN [facility] [place] T [employer] Telephone Encounter - Ro Taylor RN - [...] CT of chest/abd/pelvis. SHASTA Sotomayor, RN [facility] T [employer] documented in this encounter Plan of Treatment [...] as of this encounter Care Teams Director Of Student Affairs Relationship Specialty Start Date End Date [facility] [place] PCP - General 05/12/[address] [place] [address] documented as of this encounter
--- OUTSIDE RECORDS SUMMARY | 2022-07-03 14:23 | XMS_ITS | Encounter Summary ---
:1940 Author Organization [facility] Address [address] [place] [address] Care Team Providers Name Role Phone Unavailable Primary Care Provider Unavailable Encounter Details Date Type Department Care Team Description 05/07/2022 Orders Only [facility] f Denilson Quinones MD [address] [place] [address] [place], [place] [phone] (Wo rk) Social History Tobacco Use [...] Performing Organization Address City/[facility] Code Phon e Number [facility] GFR (05/07/2022) P athologist Signature eGFR CKD-EPI CR 30 mL/min [facility] 2020 [facility] Comment: [facility] has implemented the recommended eGFR calculation that [...] 05/08/2022 Unless otherwise specified, test(s) performed at: [facility], [address] [place] [address], [place] [address] RUNNING SPECIALIST: Raheem Malik M.D., Ph.D For any questions, please call customer service at FREQUENCY:OTHER Resulting Agency Comment Specimen source: Serum Denilson Holly MD LAB [id number] NSOLICITED RESULTS Performing Organization Address City/[facility] Code Phon e Number [...] 05/08/2022 Unless otherwise specified, test(s) performed at: [facility], [address] [place] [address], [place] [address] RUNNING SPECIALIST: Raheem Malik M.D., Ph.D For any questions, please call customer service at FREQUENCY:OTHER Resulting Agency Comment Specimen source: Blood Denilson Holly MD LAB BLOOD ORDERABLES Performing Organization Address City/State/ZIP Code Phon e Number [facility] documented in this encounter Visit Diagnoses Not on filedocumented in this encounter
--- OUTSIDE RECORDS SUMMARY | 2022-07-03 14:23 | XMS_ITS | Encounter Summary ---
:1940 Author Organization [place] Address [address] [place] [address] Care Team Providers Name Role Phone [facility], [facility] Primary Care Provider [phone] Encounter Details Date Type Department Care Team [...] documented as of this encounter Care Teams Marksmanship Instructor Relationship Specialty Start Date End Date [facility], [facility] PCP - General 05/12/[address] [place] [address] documented as of this encounter
--- OUTSIDE RECORDS SUMMARY | 2022-07-03 14:23 | XMS_ITS | Encounter Summary ---
:1940 Author Organization [place] Address [address] [place] [address] Care Team Providers Name Role Phone Clinic, [facility] Primary Care Provider Encounter Details Date Type Department Care Team Description 12/08/2019 Orders Only [facility] Tho racic aortic aneurysm [facility] without rupture (H) [address] [place] [address] Social History Tobacco Use [...] AM Thoracic aortic Resul ts for this SLEEVE SEWER aneurysm without procedure a re in the rupture (H) results section . documented in this encounter Results (ABNORMAL) Creatinine (12/08/2019 10:59 AM SLEEVE SEWER) Analysis Performed At Patho logist Time Signature Creatinine 1.36 (H) 0.66 - 12/09/2019 [place] 1.25 mg/dL 9:[address] [facility] GFR Estimate 50 (L) >60 12/09/2019 [place] mL/min/{1. 9:03 AM [facility] 73_m2} [facility] Comment: Non GFR Calc Starting 10/05/2018, serum creatinine ba sed estimated GFR (eGFR) will be calculated using the Chronic Kidney Dise banner Epidemiology Collaboration (CKD-EPI) equation. GFR Estimate If 58 (L) >60 mL/min/{1.73_m2} 12/09/2019 9:[address] [facility] Comment: GFR Calc Starting 10/05/2018, serum creatinine ba sed estimated GFR (eGFR) will be calculated using the Chronic Kidney Dise banner Epidemiology Collaboration (CKD-EPI) equation. Specimen Anatomical Collection Method Collection Time Receive d Time (Source) Location / / Volume Laterality Blood specimen 12/08/2019 10:59 0 (specimen) AM SLEEVE SEWER 11:04 AM SLEEVE SEWER Ramiro Loco MD LAB - BLOOD ORDERABLES Performing Organization Address City/State/ZIP Code Phon e Number [facility] [address] [place] [address] documented in this encounter Visit Diagnoses Diagnosis Thoracic aortic aneurysm without rupture (H) Thoracic aneurysm without mention of rup ture documented in this encounter Additional Health Concerns Infection Onset Date Last Indicated Resolved Time MRSAComment: Positive 02/17/11 and 09/22/12 11/05/2018 019 Negatives 05/03/14 (HE), 12/01/14 (HE) documented as of this encounter Care Teams Procurement Consultant Relationship Specialty Start Date End Date Kehinde Portillo PCP - General 05/12/17 [address] [place] [address] documented as of this encounter
--- OUTSIDE RECORDS SUMMARY | 2022-07-03 14:23 | XMS_ITS | Encounter Summary ---
:1940 Author Organization [place] Address [facility] [facility] [place] [place] [address] Care Team Providers Name Role Phone Clinic, [facility] Primary Care Provider [phone] Reason for Visit Reason Onset Date Comments Pain 08/08/2021 Encounter Details Date Type Department Care Team Description 08/08/2021 Telephone [facility] Ramiro Loco MD Pain Clinic [place] [address] [place] [address] [place] [address] [phone] Social History Tobacco Use Types Packs/Day Years [...] Kim Neal - 08/20/2021 8:38 AM CDT [facility] Who is the name of the provider? Dr Gonzalez What is the location you see this provider at? [place] Reason for call: Returned RN's call - relayed message - Pt is scheduled for Dr Gonzalez on 08/29/21 International Sourcing Manager: Raquel Phone number to call: [phone] Additional Notes: Telephone Encounter - Ro Taylor RN - 08/19/2021 4:37 PM CDT Discussed with Dr. Gonzalez, pt may have office visit with Dr. Gonzalez at next available, no further imaging needed. SHASTA Sotomayor, JOSE [facility] [place] Office: [phone] Telephone Encounter - Cindy Taylor RN - 08/19/2021 4:29 PM CDT I called Raquel and PHIL stating we will discuss with Dr. Gonzalez and get back to her. Cindy VEGAS, JOSE [facility] Office: [phone] Telephone Encounter - Kim Neal - 08/19/2021 3:55 PM CDT [facility] Who is the name of the provider? Prev Dr Lewis, Dr Brown and Dr Loco Pt What is the location you see this provider at? [place] / [place] Reason for call: 1. Pt has not [...] see Dr Gonzalez for another opinion/follow up. International Sourcing Manager: Raquel Phone number to call: [phone] Additional Notes: Pt stated he is still [...] Pt will need oral hydration. Routing to museum service scheduler to coordinate CTA c/a/p today. Please call pts daughter to coordinate [phone]. Then in person OV f/u with Dr. Loco at next nearest available. SHASTA Sotomayor, RN [facility] Office: [phone] Telephone Encounter - Ro Taylor RN - [...] has had consult with Dr. Orosco at [place], no further AAA surgery with Dr. Orosco. Reviewed with Rosario Hendricks MD. SHASTA Sotomayor, RN [facility] Office: [phone] Telephone Encounter - Lillian Uribe MA - [...] She would like a call back at [phone] documented in this encounter Plan of Treatment Not on filedocumented as of this encounter Visit Diagnoses Not on filedocumented in this encounter Additional Health Concerns Infection Onset Date Last Indicated Resolved Time MRSAComment: Positive 02/17/11 and 09/22/12 11/05/2018 019 Negatives 05/03/14 (HE), 12/01/14 (HE) documented as of this encounter Care Teams Cco & President Relationship Specialty Start Date End Date Clinic, [facility] PCP - General 05/12/[address] [place] [address] documented as of this encounter
--- OUTSIDE RECORDS SUMMARY | 2022-07-03 14:23 | XMS_ITS | Encounter Summary ---
:1940 Author Organization [place] Address [facility] [place] [address] Care Team Providers Name Role Phone Clinic, [facility] Primary Care Provider [phone] Reason for Referral Diagnostic Imaging CT Scan (Routine) - Closed Specialty Diagnoses / Procedures Referred By Contact Refer red To Contact Radiology. 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 (H) Butch Brown MD Ct Scan [facility] Procedures CT Chest Abdomen Pelvis w/o Contrast [address] [place] [address] [place] [address] [address] Phone: Fax: Referral ID Status Reason Start Date Expiration Date Visits Requ ested Visits Authorized [id number] Closed 05/17/2019 05/16/2020 1 1 CE CADET Reason for Visit Diagnostic Imaging CT Scan (Routine) - Closed Specialty Diagnoses / Procedures Referred By Contact Refer red To Contact Radiology. 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 (H) Butch Brown MD Ct Scan [facility] Procedures CT Chest Abdomen Pelvis w/o Contrast [address] [place] [address] [place] [address] [address] Phone: Fax: Referral ID Status Reason Start Date Expiration Date Visits Requ ested Visits Authorized [id number] Closed 05/17/2019 05/16/2020 1 1 Encounter Details Date Type Department Care Team Description 11/09/2019 Hospital Encounter [facility] Butch Brown aortic [facility] MD [place] aneurysm (AAA) [address] with out rupture (H) [address] [place] [address] Social History Tobacco Use Types Packs/Day [...] aortic Results for this PELVIS W/O CONTRAST POLICE CADET aneurysm (AAA) proced ure are in without rupture (H) the resu lts section. documented in this encounter Results CT Chest Abdomen Pelvis w/o Contrast (11/09/2019 11:25 AM POLICE CADET) Anatomical Region Laterality Modality Abdomen/Pelvis, SUBRAD CT BODY, UMP CT CHEST, UMP CT Computed Tomography ABDOMEN PELVIS, Chest, RAD CT Specimen (Source) Anatomical Location Collection Method / Collectio n Time Received Time / Laterality Volume Impressions 11/09/2019 3:17 PM POLICE [employer]ET IMPRESSION: 1. 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 2. The aneurysm sac in the distal thorac ic aorta and an infrarenal abdominal aortic aneurysm have increased slightly in size since the previous exam. 3. Moderate age-indeterminate anterior c ompression of the T7 vertebral body is new since the previous exam. JON NICHOLS MD Narrative 11/09/2019 3:[address] CHEST, ABDOMEN AND PELVIS WITHOUT CONTRAST [...] documented as of this encounter Care Teams Acid Etch Operator Relationship Specialty Start Date End Date [facility], [facility] PCP - General 05/12/[address] [place], [place] [id number] documented as of this encounter
--- OUTSIDE RECORDS SUMMARY | 2022-07-03 14:23 | XMS_ITS | Clinical Summary ---
:1940 Author Organization [facility] Address [address] [place] [address] Care Team Providers Name Role Phone Clinic, [facility] Primary Care Provider [phone] Gallito Gonzalez MD Unavailable Allergies Active Allergy [...] Comments Blood Pressure 161/78 09/23/2021 10:34 AM OUTDOOR PURSUITS INSTRUCTOR Pulse 57 09/23/2021 10:34 AM OUTDOOR PURSUITS INSTRUCTOR Temperature 36.6 ??C (97.9 ??F) 11/09/2018 7:31 AM OUTDOOR PURSUITS INSTRUCTOR Respiratory Rate 16 09/23/2021 10:34 AM OUTDOOR PURSUITS INSTRUCTOR Oxygen Saturation 99% 09/23/2021 10:34 AM OUTDOOR PURSUITS INSTRUCTOR Inhaled Oxygen Concentration - - Weight 79.4 kg (175 lb) 09/23/2021 10:34 AM OUTDOOR PURSUITS INSTRUCTOR Height 167.6 cm (5' 6) 09/23/2021 10:34 AM OUTDOOR PURSUITS INSTRUCTOR Body Mass Index 28.25 09/23/2021 10:34 AM OUTDOOR PURSUITS INSTRUCTOR Plan of Treatment Health Maintenance Due Date [...] this topic Medical Devices Implanted Type Area Circular Knife Machine Cutter Device Shelf Model / Identifier Expiration Serial / Date Lot Graft Master Matrix 10cc [id number] Bone/Tissue N/A: Back [employer] 04/17/2017 [id number] / Implanted: Qty: 1 on 11/29/2014 /Biologic / [id number] Medtronic Valiant Navion Thoracic Graft System (37mm X 37mm X 223mm X 20fr.) Graft N/A: Aorta [employer] 07/25/2020 [id number] / Implanted: Qty: 1 on 11/05/2018 by Juan Delcid MD at [facility] [id number] / Alessio Precut Contoured 70x5.5mm Metallic N/A: Back [employer] [id number] / Implanted: Qty: 2 on 11/29/2014 Hardware/An / chor NA Cervical Rods/Screws Angio-Seal Vip Vascular Closure Device Right: 08/18/2019 [id number] / Implanted: Qty: 1 on 11/05/2018 by Juan Delcid MD at [facility] Arterial / [id number] Description: Perclose Device sutured int o the right common femoral artery. Explanted Type Area Circular Knife Machine Cutter Device Shelf Model / Identifier Expiration Date Ser ial / Lot Pedicle Screws Metallic And Rods Hardware/Anch or Additional Health Concerns Infection Onset Date Last Indicated MRSAComment: Positive 02/17/11 and 09/22/12 11/05/2018 11/05/2018 Negatives 05/03/14 (HE), 12/01/14 (HE) Insurance Payer Benefit Plan / Subscriber ID Effective Phone Address T ype Group Dates MEDICARE MEDICARE FOR HB [id number] 2012-Prese [phone] ATTN CLAIMS Medicare SUPPLEMENT nt 40 [address] [place] [address] BCBS BCBS CHEVAK [id number] 2012-Prese [phone] [address] [address] PPO BLUE nt 00 [place] [address] Advance Directives For more information, please contact: [phone] Latest Code Status on File Code Status Date Activated Date Inactivated Comments Full Code 11/15/2017 2:04 AM 11/15/2017 2:27 PM Full Code 05/12/2017 1:29 PM 11/15/2017 2:04 AM Full Code 05/05/2017 5:50 PM 05/12/2017 1:29 PM Care Teams Injection Molding Process Technician Relationship Specialty Start Date End Date [facility] PCP - General 05/12/[address] [place] [address] Gallito Gonzalez MD Assigned Heart and Vascular 09/29/21 [address] Provider [place] [address]
--- OUTSIDE RECORDS SUMMARY | 2022-07-03 14:23 | XMS_ITS | Encounter Summary ---
:1940 Author Organization [place] Address [facility] [place] [address] Care Team Providers Name Role Phone Clinic, [facility] Primary Care Provider [phone] Reason for Visit Diagnostic Imaging CT Scan (Routine) - Closed Specialty Diagnoses / Procedures Referred By Contact Refer red To Contact Diagnoses Thoracic aortic aneurysm without rupture (H) Abdominal aortic aneurysm (AAA) without rupture (H) Ramiro Loco MD Procedures CT Chest Abdomen Pelvis w/o Contrast CTA Chest Abdomen Pelvis w Contrast [address] [place] [address] Referral ID Status Reason Start Date Expiration Date Visits Requ ested Visits Authorized [id number] Closed 11/29/2019 11/28/2020 1 1 Encounter Details Date Type Department Care Team Description 08/08/2021 Hospital Encounter [facility] Ramiro Loco oracic aortic aneurysm without rupture (H); [facility] Gisela Garcia MD Abdominal aortic aneurysm (AAA) without rupture (H) [address] [place] [address] [place] [address] [phone] Social History Tobacco Use Types Packs/Day Years [...] CT CHEST ABDOMEN PELVIS W/O CONTRAST LOCATION: [facility] DATE/TIME: 08/08/2021 4:20 PM INDICATION: history [...] CHEST ABDOMEN PELVIS W/O CONTRA ST LOCATION: [facility] DATE/TIME: 08/08/2021 4:20 PM INDICATION: history [...] City/State/ZIP Code Phon [place] [id number] Care Lab [address] [...] documented as of this encounter Care Teams Delivery Nurse Relationship Specialty Start Date End Date Kehinde Portillofield PCP - General 05/12/[address] [place] [address] documented as of this encounter
--- OUTSIDE RECORDS SUMMARY | 2022-07-03 14:23 | XMS_ITS | Encounter Summary ---
:1940 Author Organization [facility] Address [address] [facility] [place] [address] Care Team Providers Name Role Phone Clinic, [facility] Primary Care Provider [phone] Reason for Visit Reason Onset Date Comments Clinic Care Coordination - Initial 05/17/2019 CT sc an Encounter Details Date Type Department Care Team Description 05/17/2019 Telephone [facility] Butch Brown Clinic Car e Coordination Vascular Clinic Félix Jay MD - Initial (CT scan) [address] [place] [address] [place] [address]67[address] Social History Tobacco Use Types Packs/Day Years [...] documented as of this encounter Care Teams Merchant Banker Relationship Specialty Start Date End Date [facility] PCP - General 05/12/[address] [place] [address] [id number] documented as of this encounter
--- OUTSIDE RECORDS SUMMARY | 2022-07-03 14:23 | XMS_ITS | Encounter Summary ---
:1940 Author Organization [place] Address [address] [place] [address] Care Team Providers Name Role Phone Clinic, Ke[facility]e [facility] Primary Care Provider [phone] Encounter Details Date Type Department Care Team [...] documented as of this encounter Care Teams Laborer Fryer Farm Relationship Specialty Start Date End Date [facility] PCP - General 05/12/17 [address] [id number] documented as of this encounter
--- OUTSIDE RECORDS SUMMARY | 2022-07-03 14:23 | XMS_ITS | Encounter Summary ---
:1940 Author Organization [place] Address [facility] [address] Care Team Providers Name Role Phone Clinic, [facility] Primary Care Provider Gallito Gonzalez MD Unavailable Encounter Details Date Type Department Care Team Description 11/04/2021 Telephone [facility] Vascular Gallito Gonzalez, Clinic Tram [facility] [address] [place] [address] [place] [address] [phone] (Wo rk) Social History Tobacco Use Types [...] Gonzalez and pt notified. SHASTA Sotomayor, JOSE [facility] Office: [phone] Telephone Encounter - Ro Taylor RN - 11/26/2021 1:[address] Gonzalez, Dr. Orosco was notified. Awaiting further direction from Dr. Gonzalez upon their discussion and to ensure pts daughter is notified. SHASTA Sotomayor, JOSE [facility] Office: [phone] OR OPERATIONS ANALYST Telephone Encounter - Ro Taylor RN - 11/04/2021 4:56 PM CST JAMES 09/23/[address] Gonzalez I will get in touch with the patient's daughter after I discussed the case with Dr. Orosco Routing to Dr. Gonzalez for update on this/plan and verification of pts daughter contacted. SHASTA Sotomayor, JOES [facility] Office: [phone] OR OPERATIONS ANALYST documented in this encounter Plan of Treatment Not on filedocumented as of this encounter Visit Diagnoses Not on filedocumented in this encounter Additional Health Concerns Infection Onset Date Last Indicated Resolved Time MRSAComment: Positive 02/17/11 and 09/22/12 11/05/2018 019 Negatives 05/03/14 (HE), 12/01/14 (HE) documented as of this encounter Care Teams Brattice Builder Relationship Specialty Start Date End Date Clinic, [facility] PCP - General 05/12/17 [address] [place] [address] Gallito Gonzalez MD Assigned Heart and Vascular 09/29/21 [address] Provider [place] [address] documented as of this encounter
--- OUTSIDE RECORDS SUMMARY | 2022-07-03 14:23 | XMS_ITS | Encounter Summary ---
:1940 Author Organization [place] Address [facility] [place] [address] Care Team Providers Name Role Phone Clinic, [facility] Primary Care Provider [phone] Reason for Visit Reason Comments RECHECK 6 month follow up visit. 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) (Primary Dx); Surgery Clinic Ramiro Loco MD [address] [place] [id number] CKD (chronic kidney disease) stage 3, GF R 30-59 ml/min (H) [place] [address] Ariel Burnett [facility] [address] [place] [address] Social History Tobacco Use Types [...] Comments Blood Pressure 128/76 11/09/2019 1:19 PM MEDIA CONSULTANT Pulse 59 11/09/2019 1:19 PM MEDIA CONSULTANT Temperature - - Respiratory Rate 16 11/09/2019 1:19 PM MEDIA CONSULTANT Oxygen Saturation 98% 11/09/2019 1:19 PM MEDIA CONSULTANT Inhaled Oxygen Concentration - - Weight 82.6 kg (182 lb) 11/09/2019 1:19 PM MEDIA CONSULTANT Height 167.6 cm (5' 6) 11/09/2019 1:19 PM MEDIA CONSULTANT Body Mass Index 29.38 11/09/2019 1:19 PM MEDIA CONSULTANT documented in this encounter Progress Notes Ramiro [...] Hendricks spent the last several months in [place]. Dr. Brown has left our practice. Mr. Hendricks presents to my vascular surgical office today to review a noncontrasted CT scan of the chest, abdomen, and pelvis and to once again discuss possible EVAR. He was accompanied by his daughter. He did have a fall while vacationing in [place] with multiple resultant rib fractures. Apart from [...] repair. I would absolutely refer him to [facility] to discuss those surgical options. Presently repair [...] in complete agreement with our plan. Total vsfj-nj-egck time was 40 minutes, greater than 50% spent providing counseling and education. David Loco MD A CONSULTANT documented in this encounter Plan of [...] as of this encounter Care Teams Supervisor Filter Assembly Relationship Specialty Start Date End Date [facility] PCP - General 05/12/[address] [place] [address] documented as of this encounter
--- OUTSIDE RECORDS SUMMARY | 2022-07-03 14:23 | XMS_ITS | Encounter Summary ---
:1940 Author Organization [place] Address [address] [facility] [place] [address] Care Team Providers Name Role Phone Clinic, [facility] Primary Care Provider [phone] Encounter Details Date Type Department Care Team Description 11/15/2019 Orders Only [facility] Ramiro Loco Thoracic aortic Vascular Clinic Félix Garcia MD aneurysm without [address] rupt ure (H) (Primary [address] Dx) [place] [address] [place] [address]485 Social History Tobacco Use Types Packs/Day Years [...] encounter Results (ABNORMAL) Creatinine (12/08/2019 10:59 AM GLASS CUTTING MACHINE FEEDER) Analysis Performed At Patho logist Time Signature Creatinine 1.36 (H) 0.66 - 12/09/2019 [place] 1.25 mg/dL 9:03 AM [facility] GFR Estimate 50 (L) >60 12/09/2019 [place] mL/min/{1. 9:03 AM [facility] 73_m2} [facility] Comment: Non GFR Calc Starting 10/05/2018, serum creatinine ba sed estimated GFR (eGFR) will be calculated using the Chronic Kidney Dise ase Epidemiology Collaboration (CKD-EPI) equation. GFR Estimate If 58 (L) >60 mL/min/{1.73_m2} 12/09/2019 9:03 AM [facility] Comment: GFR Calc Starting 10/05/2018, serum creatinine ba sed estimated GFR (eGFR) will be calculated using the Chronic Kidney Dise [facility] Epidemiology Collaboration (CKD-EPI) equation. Specimen Anatomical Collection Method Collection Time Receive d Time (Source) Location / / Volume Laterality Blood specimen 12/08/2019 10:59 0 (specimen) AM GLASS CUTTING MACHINE FEEDER 11:04 AM GLASS CUTTING MACHINE FEEDER Ramiro Loco MD LAB - BLOOD ORDERABLES Performing Organization Address City/State/ZIP Code Phon e Number [facility] [address] [place] [address] documented in this encounter Visit Diagnoses Diagnosis Thoracic aortic aneurysm without rupture (H) - Primary Thoracic aneurysm without mention of rup ture documented in this encounter Additional Health Concerns Infection Onset Date Last Indicated Resolved Time MRSAComment: Positive 02/17/11 and 09/22/12 11/05/2018 019 Negatives 05/03/14 (HE), 12/01/14 (HE) documented as of this encounter Care Teams Quality Assurance Consultant Relationship Specialty Start Date End Date Kehinde Portillo PCP - General 05/12/[address] [place] [address] documented as of this encounter
--- OUTSIDE RECORDS SUMMARY | 2022-07-03 14:24 | XMS_ITS | Encounter Summary ---
:1940 Author Organization [place] Address [address] [place] [address]. [place] [address] Care Team Providers Name Role Phone [facility], [facility] Primary Care Provider [phone] Encounter Details Date Type Department Care Team Description 11/12/2018 Telephone [facility] Vascular Butch Brown MD Clinic [place] [address] [place] [address] [place] [id number] (Wo rk) Social History Tobacco Use Types [...] that f/u with Dr. Brown. Aruna Simmons, Seed Cleaner MACY MANAGER documented in this encounter Plan of Treatment Not on filedocumented as of this encounter Visit Diagnoses Not on filedocumented in this encounter Additional Health Concerns Infection Onset Date Last Indicated Resolved Time MRSAComment: Positive 02/17/11 and 09/22/12 11/05/2018 019 Negatives 05/03/14 (HE), 12/01/14 (HE) documented as of this encounter Care Teams Administrative Services Assistant Relationship Specialty Start Date End Date [facility], [facility] PCP - General 05/12/[address] [place] [address] documented as of this encounter
--- OUTSIDE RECORDS SUMMARY | 2022-07-03 14:24 | XMS_ITS | Encounter Summary ---
:1940 Author Organization [place] Address [address] [place] [address] Care Team Providers Name Role Phone Clinic, [facility] Primary Care Provider [phone] Reason for Visit Reason Comments RECHECK History of thoracic aortic a neurysm without rupture; 6 month follow up to 11-26-[address] Brown Encounter Details Date Type Department Care Team Description 05/17/2019 Office Visit [facility] Butch Brown Abdominal aortic aneurysm (AAA) without rupture (H) (Primary Dx); Vascular Clinic Félix Jay MD Thoracic aortic aneurysm without rupture (H) [address] [place] [address] [place] [id number] Social History Tobacco Use Types Packs/Day Years [...] aneurysms. The patient plans to go to [place] this fall and is back sometime in [...] previously covered. I spent 15 minutes of lhra-cu-ehek time, > 50% spent counseling and coordinating [...] documented as of this encounter Care Teams Cognos Administrator Relationship Specialty Start Date End Date [facility] PCP - General 05/12/17 [address] [place] [address] documented as of this encounter
--- OUTSIDE RECORDS SUMMARY | 2022-07-03 14:24 | XMS_ITS | Encounter Summary ---
:1940 Author Organization [place] Address [address] [facility] [place] [address] Care Team Providers Name Role Phone Clinic, [facility] Primary Care Provider [phone] Reason for Visit Diagnostic Imaging CT Scan (Routine) - Closed Specialty Diagnoses / Procedures Referred By Contact Refer red To Contact Radiology. Diagnoses Thoracic aortic aneurysm (H) Butch Brown MD Ct Scan Procedures CT Chest Abdomen Pelvis w/o Contrast CTA Chest Abdomen Pelvis w Contrast [address] [place] [address] [place] [address] Referral ID Status Reason Start Date Expiration Date Visits Requ ested Visits Authorized [id number] Closed 11/26/2018 11/26/2019 1 1 Encounter Details Date Type Department Care Team Description 05/17/2019 Hospital Encounter [facility] [place] aneurysm (H) [address] [place] [address] [address] [place] [id number] Social History Tobacco Use Types Packs/Day Years [...] CDT 10:23 AM CDT Butch Brown MD [facility] POCT Performing Organization Address [...] as of this encounter Care Teams Credit Card Control Clerk Relationship Specialty Start Date End Date [facility] P[facility] - General 05/12/[address] [place] [address] documented as of this encounter
--- OUTSIDE RECORDS SUMMARY | 2022-07-03 14:24 | XMS_ITS | Encounter Summary ---
:1940 Author Organization [place] Address [address] [place] [address] Care Team Providers Name Role Phone [facility], [facility] Primary Care Provider [phone] Encounter Details Date Type Department Care Team [...] documented as of this encounter Care Teams Primary Special Education Teacher Relationship Specialty Start Date End Date [facility], [facility] PCP - General 05/12/[address] [place] [address] documented as of this encounter
--- OUTSIDE RECORDS SUMMARY | 2022-07-03 14:24 | XMS_ITS | Encounter Summary ---
:1940 Author Organization [place] Address [address] [facility] [place] [address] Care Team Providers Name Role Phone [facility], [facility] Primary Care Provider [phone] Reason for Referral Diagnostic Imaging CT Scan - Closed Specialty Diagnoses / Procedures Referred By Contact Refer red To Contact Radiology. Diagnoses Thoracic aortic aneurysm (H) Juan Lewis MD Ct Scan Procedures CTA Chest Abdomen Pelvis w Contrast [address] [place] [address] [place] [address] Referral ID Status Reason Start Date Expiration Date Visits Requ ested Visits Authorized [id number] Closed 11/12/2018 11/12/2019 1 1 ER OPERATOR Encounter Details Date Type Department Care Team Description 11/12/2018 [facility] Only [facility] Juan Lewis Thoracic aortic Vascular Clinic Félix Nava MD aneurysm (H) (Primary [address] Dx ) [address] [place] [address] [place] [id number] Social History Tobacco Use Types Packs/Day Years [...] Abdomen Pelvis w Contrast (11/26/2018 9:03 AM RIPPER OPERATOR) Anatomical Region Laterality Modality Lower Extremity, SUBRAD IR PROCEDURE, UMP CT CTA, RAD Computed Tomography CT Specimen (Source) Anatomical Location Collection Method / Collectio n Time Received Time / Laterality Volume Impressions 11/26/2018 4:44 PM RIPPER OPERATOR IMPRESSION: 1. New thoracic aortic endograft. Tandem areas of aneurysmal dilatation are relatively unchanged in s ize. No visible endoleak. Recommend annual surveillance. 2. Infrarenal abdominal aortic aneurysm measuring 4.6 x 4.6 cm, unchanged. 3. Somewhat irregular fluid collection i n left groin, likely postoperative seroma. Surrounding enlarg ed lymph nodes. TANNER STARKS MD Narrative 11/26/2018 4:44 PM RIPPER OPERATOR CTA CHEST, ABDOMEN AND PELVIS WITH CONTRAST [...] of this encounter Care Teams Director Of Materials Relationship Specialty Start Date End Date [facility], [facility] PCP - General 05/12/17 [address] [place] [address] documented as of this encounter
--- OUTSIDE RECORDS SUMMARY | 2022-07-03 14:24 | XMS_ITS | Encounter Summary ---
:1940 Author Organization [place] Address [facility] [address] Care Team Providers Name Role Phone Clinic, [facility] Primary Care Provider [phone] Encounter Details Date Type Department Care Team Description 11/26/2018 [facility] Butch Brown Thoracic a ortic Vascular Clinic Félix Jay MD aneurysm (H) (Primary [address] Dx ) [address] [place] [address] [place] 735[address] Social History Tobacco Use Types Packs/Day Years [...] documented as of this encounter Care Teams Collection Analyst Relationship Specialty Start Date End Date [facility], [facility] PCP - General 05/12/[address] [place] [address] documented as of this encounter
--- OUTSIDE RECORDS SUMMARY | 2022-07-03 14:24 | XMS_ITS | Encounter Summary ---
:1940 Author Organization [place] Address [address] [facility] [place] [address] Care Team Providers Name Role Phone Clinic, [facility] Primary Care Provider [phone] Reason for Visit Reason Comments RECHECK 1st PO; THORACIC ENDOVASCULA R ANEURYSM REPAIR WITH [employer] GRAFT Encounter Details Date Type Department Care Team Description 11/26/2018 Office Visit [facility] Butch Brown Thoracic a ortic Vascular Clinic Félix Jay MD aneurysm without [address] pture (H) (Primary [address] Dx) [place] [address] [place] [address] Social History Tobacco Use Types Packs/Day Years [...] Comments Blood Pressure 146/70 11/26/2018 10:47 AM OPERATING ROOM ASSISTANT Pulse 66 11/26/2018 10:47 AM OPERATING ROOM ASSISTANT Temperature - - Respiratory Rate - - Oxygen Saturation - - Inhaled Oxygen Concentration - - Weight 87.5 kg (193 lb) 11/26/2018 10:47 AM OPERATING ROOM ASSISTANT Height 167.6 cm (5' 6) 11/26/2018 10:47 AM OPERATING ROOM ASSISTANT Body Mass Index 31.15 11/26/2018 10:47 AM OPERATING ROOM ASSISTANT documented in this encounter Patient Instructions Patient InstructionsVon Landeros CMA - 11/26/2018 11:00 AM OPERATING ROOM ASSISTANT Patient to follow up with Primary Care provider regarding elevated blood pressure. ATING ROOM ASSISTANT documented in this encounter Progress Notes Von [...] kg). Pain Score: Data Unavailable Von Landeros ATING ROOM ASSISTANT Butch Brown MD - 11/26/2018 11:00 AM [...] 5.0-5.5 cm. Butch Brown MD Vascular Surgery ATING ROOM ASSISTANT documented in this encounter Plan of [...] as of this encounter Care Teams Customer Insight Analyst Relationship Specialty Start Date End Date [facility], [facility] PCP - General 05/12/[address] [place], [place] [id number] documented as of this encounter
--- OUTSIDE RECORDS SUMMARY | 2022-07-03 14:24 | XMS_ITS | Encounter Summary ---
:1940 Author Organization [place] Address [address] [place] [address] Care Team Providers Name Role Phone [facility], [facility] Primary Care Provider [phone] Encounter Details Date Type Department Care Team [...] documented as of this encounter Care Teams Cutter V Groove Relationship Specialty Start Date End Date [facility], [facility] PCP - General 05/12/[address] [place] [address] documented as of this encounter
--- OUTSIDE RECORDS SUMMARY | 2022-07-03 14:24 | XMS_ITS | Encounter Summary ---
:1940 Author Organization [place] Address [facility] [place] [address] Care Team Providers Name Role Phone Clinic, [facility] Primary Care Provider [phone] Reason for Referral Diagnostic Imaging CT Scan - Closed Specialty Diagnoses / Procedures Referred By Contact Refer red To Contact Radiology. Diagnoses Thoracic aortic aneurysm (H) Juan Lewis MD Ct Scan Procedures CTA Chest Abdomen Pelvis w Contrast [address] [place] [address] [place] [address] Referral ID Status Reason Start Date Expiration Date Visits Requ ested Visits Authorized [id number] Closed 11/12/2018 11/12/2019 1 1 DULING CLERK Reason for Visit Diagnostic Imaging CT Scan - Closed Specialty Diagnoses / Procedures Referred By Contact Refer red To Contact Radiology. Diagnoses Thoracic aortic aneurysm (H) Juan Lewis MD Ct Scan Procedures CTA Chest Abdomen Pelvis w Contrast [address] [place] [address] [place] [address] Referral ID Status Reason Start Date Expiration Date Visits Requ ested Visits Authorized [id number] Closed 11/12/2018 11/12/2019 1 1 Encounter Details Date Type Department Care Team Description 11/26/2018 [facility] Non-Fv Credentialed Pro vider, Lab Thoracic aortic Encounter [facility] Butch Brown MD [address] [place] [id number] aneurysm (H) [address] [place] [address] [address] Social [...] R esults for this PELVIS W CONTRAST SCHEDULING CLERK aneurysm (H) procedure are in the results section. documented in this encounter Results CTA Chest Abdomen Pelvis w Contrast (11/26/2018 9:03 AM SCHEDULING CLERK) Anatomical Region Laterality Modality Lower Extremity, SUBRAD IR PROCEDURE, UMP CT CTA, RAD Computed Tomography CT Specimen (Source) Anatomical Location Collection Method / Collectio n Time Received Time / Laterality Volume Impressions 11/26/2018 4:44 PM SCHEDULING CLERK IMPRESSION: 1. New thoracic aortic endograft. Tandem areas of aneurysmal dilatation are relatively unchanged in s ize. No visible endoleak. Recommend annual surveillance. 2. Infrarenal abdominal aortic aneurysm measuring 4.6 x 4.6 cm, unchanged. 3. Somewhat irregular fluid collection i n left groin, likely postoperative seroma. Surrounding enlarg ed lymph nodes. TANNER STARKS MD Narrative 11/26/2018 4:44 PM SCHEDULING CLERK CTA CHEST, ABDOMEN AND PELVIS WITH CONTRAST [...] (ISOVUE-370) solution 80 Given 11/26/2018 8:30 AM SCHEDULING CLERK 80 mLs mL 80 mL, Intravenous, ONCE, On Thu11/26/18 at 0830, For 1 dose Saline Flush Given 11/26/2018 8:30 AM SCHEDULING CLERK 80 mLs Intravenous, 80 mL, ONCE, On [...] as of this encounter Care Teams Lead Nurse Relationship Specialty Start Date End Date [facility] [place] PCP - General 05/12/[address] [place] [address] documented as of this encounter
--- OUTSIDE RECORDS SUMMARY | 2022-07-03 14:25 | XMS_ITS | Encounter Summary ---
:1940 Author Organization [place] Address [facility] [place] [address] Care Team Providers Name Role Phone [facility], [facility] Primary Care Provider [phone] Encounter Details Date Type Department Care Team Description 10/21/2018 Telephone [facility] Vascular Sophie piper, Juan aNva MD Clinic Tram [address] [place] [address] [place] [address] [phone] Social History Tobacco Use Types Packs/Day Years [...] REPAIR WITH [employer] Location of surgery: [facility] Date and time of surgery: 11/05/18 @ 8:30AM Surgeon: DR. VÁSQUEZ AND DR. GARVIN Pre-Op Appt Date: PT TO SCHEDULE AT [facility] Post-Op Appt Date: PT TO SCHEDULE Packet sent out: MAILED 10/25/18 Pre-cert/Authorization completed: Yes Date: 10/28/18 I have notified IR, ICU and anesthesia about this case. I have verified that anesthesia agrees with 3 day Eliquis hold because pt will need spinal drain. Aruna Simmons, Passenger Service Manager GE MANAGEMENT DIRECTOR Telephone Encounter - Aruna Simmons - 10/25/2018 4:25 PM CST Spoke with daughter, Raquel, and she will have her dad come on 11/03/18 @ 9:00 to the [facility] lab for type and screen. I called the lab to make the appt for them. Aruna Simmons, Passenger Service Manager GE MANAGEMENT DIRECTOR Telephone Encounter - Sondra Johnson RN - 10/22/2018 12:50 PM CST RN called [facility] Blood Bank and informed them of pt's upcoming surgery and request for 2 units of packed RBCs are available. Discussed with Blood Bank pt has RBC antibodies. Per Pam in blood bank, pt needs to have a type and screen drawn here at [facility] 48 hours prior to procedure. Pam stated pt could makea lab appointment on 11/03/18 or morning of 11/04/18. Pt's lab from 09/28/18 cannot be used as reference. Order entered for ABO/type and screen. Will route back to surgery scheduling. SHASTA Winkler, RN GE MANAGEMENT DIRECTOR Telephone Encounter - Aruna Simmons - 10/21/2018 [...] prior to the upcoming surgery. Aruna Simmons, Passenger Service Manager GE MANAGEMENT DIRECTOR documented in this encounter Plan of Treatment Not on filedocumented as of this encounter Results (ABNORMAL) ABO/Rh type and screen (11/03/2018 9:10 AM CHANGE MANAGEMENT DIRECTOR) [facility] Method Time Signature Units Ordered 4 11/05/2018 [place] 1:30 PM [facility] ABO O 11/03/2018 [place] 10:15 AM [facility] RH(D) Pos [facility] Antibody Pos (A) 11/03/2018 [place] Screen 10:15 AM [facility] Test Valid [place] 11/03/2018 [place] Only At [facility] 9:31 AM [facility] Specimen 11/06/2018 11/03/2018 [place] Expires 9:31 AM [facility] Crossmatch Red Blood 11/03/2018 [place] Cells 9:31 AM [facility] Specimen Anatomical Collection Method Collection Time Receive d Time (Source) Location / / Volume Laterality Blood specimen 11/03/2018 9:10 AM 019 9:19 (specimen) CHANGE MANAGEMENT DIRECTOR AM CHANGE MANAGEMENT DIRECTOR Juan Vásquez MD LAB - BLOOD BANK TEST ORDER Performing Organization Address City/State/ZIP Code Phon e Number M [facility] [address] [place] [address] [facility] [address] [place] [address], [facility] [phone] documented in this encounter Visit Diagnoses Diagnosis Abdominal aortic aneurysm (AAA) without rupture (H) - Primary Encounter for pre-operative laboratory t esting Preoperative examination, unspecified documented in this encounter Additional Health Concerns Infection Onset Date Last Indicated Resolved Time MRSAComment: Positive 02/17/11 and 09/22/12 11/05/2018 019 Negatives 05/03/14 (HE), 12/01/14 (HE) documented as of this encounter Care Teams Associate School Psychologist Relationship Specialty Start Date End Date [facility], [facility] PCP - General 05/12/17 [address] [place] [address] documented as of this encounter
--- OUTSIDE RECORDS SUMMARY | 2022-07-03 14:25 | XMS_ITS | Encounter Summary ---
:1940 Author Organization [place] Address [address] [place] [address] Care Team Providers Name Role Phone Clinic, [facility] Primary Care Provider [phone] Reason for Visit Auth/Cert Specialty Diagnoses / Procedures Referred By Contact Refer red To Contact Surgery Diagnoses DESCENDING THORACIC AORTIC ANEURYSM Sh Periop Services Procedures ENDOVASCULAR REPAIR ANEURYSM THORACIC AORTIC [address] [place] [address] Phone: Referral ID Status Reason Start Date Expiration Date Visits Requ ested Visits Authorized [id number] 1 1 Encounter Details Date Type Department Care Team Description 11/05/2018 Anesthesia Event [facility] Fela Conrad PeriOP Ser vices Andrade [address] ANESTHESIOLOGISTS [place] [address] [phone] [place] [id number] (Wo rk) Anesthesia Record Procedure Summary Procedure [...] with oral Ivon Aguilar airway; Ease of SECURITY OPERATIONS CENTER OPERATOR PICK UP MAN Intubation: Easy; Airway Size: 8; Cuffed; Oral; Blade Type: Glidescope; Blade Size: 4; Place by: Ryan Whitmorezer; Insertion Attempts: 1; Secured at (cm)to lip: 23 cm; Breath Sounds: Equal, clear and bilateral; End Tidal CO2: Present; Dentition: Intact, Unchanged; Grade View of Cords: 1; Airway Adjuncts: [place] scope Left Groin Interventional #1; 09/28/18; 1500 [...] Fela Conrad November 05, 2018 3:25 PM ANCE WILDLIFE TRAPPER Anesthesia Procedure Notes - Fela Conrad - 11/05/2018 3:24 PM NUISANCE WILDLIFE TRAPPER Associated Order(s): Central line catheter placement CENTRAL [...] flushed: Yes Comments: Central Line No complications. ANCE WILDLIFE TRAPPER Anesthesia Procedure Notes - Fela Conrad - 11/05/2018 3:23 PM NUISANCE WILDLIFE TRAPPER Associated Order(s): A Line Catheter Placement ARTERIAL [...] waveform: Yes Comments: Arterial Line No complications ANCE WILDLIFE TRAPPER Anesthesia Preprocedure Evaluation - Fela Conrad - [...] and alternatives discussed with: Patient.. Fela Conrad ANCE WILDLIFE TRAPPER documented in this encounter Miscellaneous Notes Anesthesia [...] APRN CRNA November 05, 2018 12:44 PM ANCE WILDLIFE TRAPPER documented in this encounter Plan of Treatment Not on filedocumented as of this encounter Procedures Procedure Name Priority Date/Time Associated Diagnosis Comme nts FV AN NC PA CENTRAL Routine 11/05/2018 3:24 PM NUISANCE WILDLIFE TRAPPER LINE CATHETER PROCEDURE Procedure Note - Dariel [...] LINE CATHETER PLACEMENT Routine 11/05/2018 3:23 PM NUISANCE WILDLIFE TRAPPER Procedure Note - Dariel Conrad - 11/05/2018 [...] clindamycin (CLEOCIN) infusion Given 11/05/2018 10:28 AM NUISANCE WILDLIFE TRAPPER 900 mg Routine, PRN, Starting on Thu11/05/18 at 1028, Anesthesia Intra-op dexamethasone (DECADRON) injection Given 11/05/2018 10:25 AM NUISANCE WILDLIFE TRAPPER 4 mg PRN, Administer over 1 Minutes, Starting on Thu11/05/18 at 1025, Anesthesia Intra-op ePHEDrine injection Given 11/05/2018 10:55 AM NUISANCE WILDLIFE TRAPPER 10 mg PRN, Starting on Thu11/05/18 at 1025, Anesthesia Intra-op Given 11/05/2018 10:38 AM NUISANCE WILDLIFE TRAPPER 5 mg Given 11/05/2018 10:25 AM NUISANCE WILDLIFE TRAPPER 5 mg fentaNYL (PF) (SUBLIMAZE) injection Given 11/05/2018 11:48 AM NUISANCE WILDLIFE TRAPPER 50 mcg PRN, Administer over 3-5 Minutes, Starting on Thu11/05/18 at 1010, Anesthesia Intra-op Given 11/05/2018 11:17 AM NUISANCE WILDLIFE TRAPPER 50 mcg Given 11/05/2018 10:10 AM NUISANCE WILDLIFE TRAPPER 100 mcg glycopyrrolate (ROBINUL) injection Given 11/05/2018 12:09 PM NUISANCE WILDLIFE TRAPPER 0.2 mg PRN, Administer over 1-2 Minutes, Starting on Thu11/05/18 at 1055, Anesthesia Intra-op Given 11/05/2018 12:07 PM NUISANCE WILDLIFE TRAPPER 0.4 mg Given 11/05/2018 10:55 AM NUISANCE WILDLIFE TRAPPER 0.2 mg heparin (porcine) injection Given 11/05/2018 10:59 AM NUISANCE WILDLIFE TRAPPER 7,000 Units PRN, Starting on Thu11/05/18 at 1059, Anesthesia Intra-op lactated ringers infusion New Bag 11/05/2018 7:30 AM NUISANCE WILDLIFE TRAPPER Intravenous, CONTINUOUS PRN, Anesthesia Intra-op, Starting on Thu11/05/18 at 0957, Until Thu11/05/18 at 1244 lactated ringers infusion New Bag 11/05/2018 9:57 AM NUISANCE WILDLIFE TRAPPER CONTINUOUS PRN, Anesthesia Intra-op, Starting on Thu11/05/18 at 0730, Until Thu11/05/18 at 1244 New Bag 11/05/2018 7:30 AM NUISANCE WILDLIFE TRAPPER lidocaine 2% injection (MDV) Given 11/05/2018 10:14 AM NUISANCE WILDLIFE TRAPPER 80 mg PRN, Starting on Thu11/05/18 at 1014, Anesthesia Intra-op neostigmine (PROSTIGMINE) injection Given 11/05/2018 12:09 PM NUISANCE WILDLIFE TRAPPER 2 mg Intravenous, PRN, Starting on Thu11/05/18 at 1207, Anesthesia Intra-op Given 11/05/2018 12:07 PM NUISANCE WILDLIFE TRAPPER 2 mg nitroGLYcerin 25 mg in D5W 250 mL infusi on Given 11/05/2018 12:39 PM NUISANCE WILDLIFE TRAPPER 10 mcg PRN, Starting on Thu11/05/18 at 1113, Anesthesia Intra-op Given 11/05/2018 12:38 PM NUISANCE WILDLIFE TRAPPER 15 mcg Given 11/05/2018 11:15 AM NUISANCE WILDLIFE TRAPPER 10 mcg ondansetron (ZOFRAN) injection Given 11/05/2018 12:07 PM NUISANCE WILDLIFE TRAPPER 4 mg PRN, Administer over 2-5 Minutes, Starting on Thu11/05/18 at 1207, Anesthesia Intra-op phenylephrine (CHRISTINE-SYNEPHRINE) injection Bolus 11/05/2018 11:23 AM NUISANCE WILDLIFE TRAPPER 50 mcg CONTINUOUS PRN, Starting on Thu11/05/18 at 1120, Anesthesia Intra-op New Bag 11/05/2018 11:20 AM NUISANCE WILDLIFE TRAPPER 50 mcg phenylephrine 0.2 mg/mL Restarted 11/05/2018 11:39 AM 0.2 mcg/kg/min 5.06 mL/hr (mcg/kg/min) drip NUISANCE WILDLIFE TRAPPER CONTINUOUS PRN, Starting on Thu11/05/18 at 1024, Anesthesia Intra-op Rate/Dose Change 11/05/2018 11:27 AM NUISANCE WILDLIFE TRAPPER 0.2 mcg/kg/min 5.06 mL/hr Restarted 11/05/2018 11:20 AM NUISANCE WILDLIFE TRAPPER 0.3 mcg/kg/min 7.59 mL/hr propofol (DIPRIVAN) injection 10 mg/mL v ial Given 11/05/2018 11:17 AM NUISANCE WILDLIFE TRAPPER 30 mg PRN, Starting on Thu11/05/18 at 1014, Anesthesia Intra-op Given 11/05/2018 10:14 AM NUISANCE WILDLIFE TRAPPER 170 mg rocuronium (ZEMURON) injection Given 11/05/2018 10:15 AM NUISANCE WILDLIFE TRAPPER 50 mg PRN, Starting on Thu11/05/18 at 1015, Anesthesia Intra-op sodium chloride 0.9% infusion New Bag 11/05/2018 9:57 AM NUISANCE WILDLIFE TRAPPER CONTINUOUS PRN, Anesthesia Intra-op, Starting on Thu11/05/18 at 0957, Until Thu11/05/18 at 1244 vecuronium (NORCURON) injection Given 11/05/2018 11:23 AM NUISANCE WILDLIFE TRAPPER 1 mg PRN, Starting on Thu11/05/18 at 1031, Anesthesia Intra-op Given 11/05/2018 10:31 AM NUISANCE WILDLIFE TRAPPER 2 mg documented in this encounter Additional Health Concerns Infection Onset Date Last Indicated Resolved Time MRSAComment: Positive 02/17/11 and 09/22/12 11/05/2018 019 Negatives 05/03/14 (HE), 12/01/14 (HE) documented as of this encounter Care Teams Geospatial Technologist Relationship Specialty Start Date End Date [facility], [facility] PCP - General 05/12/[address] [place], [place] [phone] documented as of this encounter
--- OUTSIDE RECORDS SUMMARY | 2022-07-03 14:25 | XMS_ITS | Encounter Summary ---
:1940 Author Organization [place] Address [facility] [place] [address] Care Team Providers Name Role Phone Clinic, [facility] Primary Care Provider [phone] Encounter Details Date Type Department Care Team Description 11/05/2018 Anesthesia Event [facility] Zakia Santoyo, Interventional Radio logy [address] [place] [address] ANESTHESIOLOGY [phone] [address] [place] [address] Anesthesia Record Procedure Summary Procedure Name Responsible [...] on filedocumented in this encounter Care Teams Nuclear Supervising Operator Relationship Specialty Start Date End Date Kehinde Portillo PCP - General 05/12/[address] [place] [address] documented as of this encounter
--- OUTSIDE RECORDS SUMMARY | 2022-07-03 14:25 | XMS_ITS | Encounter Summary ---
:1940 Author Organization [place] Address [address] [place] [address] Care Team Providers Name Role Phone Kehinde Portillo Primary Care Provider [phone] Encounter Details Date Type Department Care Team [...] on filedocumented in this encounter Care Teams Conciliation Court Judge Relationship Specialty Start Date End [facility] - [facility] [place] [phone] documented as of this encounter
--- OUTSIDE RECORDS SUMMARY | 2022-07-03 14:25 | XMS_ITS | Encounter Summary ---
:1940 Author Organization [place] Address [address] [facility] 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 Periop Services Procedures ENDOVASCULAR REPAIR ANEURYSM THORACIC AORTIC [address] [place] [address] Phone: Referral ID Status Reason Start Date Expiration Date Visits Requ ested Visits Authorized [id number] 1 1 Encounter Details Date Type Department Care Team Description 11/03/2018 Hospital Encounter [facility] Juan Lewis En counter for [facility] MD Elijah pre-operative [address] [place] [address] [address] [place] [address] Social History Tobacco Use Types Packs/Day Years [...] AM Encounter for Resul ts for this PERSONNEL ADVISER pre-operative procedure are in laboratory testing the resul ts section. BLOOD COMPONENT Routine 11/03/2018 9:10 AM Encounter for Resul ts for this PERSONNEL ADVISER pre-operative procedure are in laboratory testing the resul ts section. BLOOD COMPONENT Routine 11/03/2018 9:10 AM Encounter for Resul ts for this PERSONNEL ADVISER pre-operative procedure are in laboratory testing the resul ts section. BLOOD COMPONENT Routine 11/03/2018 9:10 AM Encounter for Resul ts for this PERSONNEL ADVISER pre-operative procedure are in laboratory testing the resul ts section. ABO/RH TYPE AND Routine 11/03/2018 9:10 AM Encounter for Resul ts for this SCREEN PERSONNEL ADVISER pre-operative procedure are in laboratory testing the resul ts section. documented in this encounter Results Blood component (11/03/2018 9:10 AM PERSONNEL ADVISER) [facility] Method Time Signature Unit Number [id number] 11/05/2018 [facility] 7:55 AM [facility] Blood Red Blood Cells 11/05/2018 [facility] Component LeukoReduced 7:55 AM [facility] HOSPITAL Division 00 11/05/2018 [facility] Number 7:55 AM [facility] Status of No longer 11/07/2018 [facility] Unit available 3:00 AM [facility] 11/07/2018 0300 [facility] Blood Product [id number] 11/05/2018 [facility] Code 7:55 AM [facility] Unit Status [facility] Specimen Anatomical Collection Method Collection Time Receive d Time (Source) Location / / Volume Laterality 11/03/2018 9:10 AM 9 9:19 PERSONNEL ADVISER AM PERSONNEL ADVISER Juan Lewis MD LABORATORY Performing Organization Address City/State/ZIP Code Phon e Number M [facility] [address], [place] [address] [facility] [address] [place] [address], [facility] [address], [place] [address], [facility] [phone] Blood component (11/03/2018 9:10 AM PERSONNEL ADVISER) [facility] gist Method Time Signature Unit Number [id number] 11/05/2018 [facility] 7:55 AM [facility] Blood Red Blood 11/05/2018 [facility] Component Cells 7:55 AM [facility] Reduced Division 00 11/05/2018 [facility] Number 7:55 AM [facility] Status of No longer 11/07/2018 [facility] Unit available 3:00 AM [facility] 11/07/2018 HOSPITAL 0300 Blood Product [id number] 11/05/2018 [facility] Code 7:55 AM [facility] Unit Status RET [facility] Specimen Anatomical Collection Method Collection Time Receive d Time (Source) Location / / Volume Laterality 11/03/2018 9:10 AM 9 9:19 PERSONNEL ADVISER AM PERSONNEL ADVISER Juan Lewis MD LABORATORY Performing Organization Address City/State/ZIP Code Phon e Number M [facility] [address], [place] [address] [place] [id number] [place] [address], [facility] [address], [place] [address], [facility] [phone] Blood component (11/03/2018 9:10 AM PERSONNEL ADVISER) [facility] Method Time Signature Unit Number [id number] 11/03/2018 [facility] 10:39 AM [facility] Blood Red Blood 11/03/2018 [facility] Component Cells 10:39 AM [facility] Reduced Division 00 11/03/2018 [facility] Number 10:39 AM [facility] Status of No longer 11/07/2018 [facility] Unit available 3:00 AM [facility] 11/07/2018 HOSPITAL 0300 Blood Product [id number] 11/03/2018 [facility] Code 10:39 AM [facility] Unit Status [facility] Specimen Anatomical Collection Method Collection Time Receive d Time (Source) Location / / Volume Laterality 11/03/2018 9:10 AM 9 9:19 PERSONNEL ADVISER AM PERSONNEL ADVISER Juan Lewis MD LABORATORY Performing Organization Address City/State/ZIP Code Phon e Number M [facility] [address], [place] [address] [facility] [address] [address], [facility] [address], [place] [address], [facility] [phone] Blood component (11/03/2018 9:10 AM PERSONNEL ADVISER) [facility] Soysuper Method Time Signature Unit Number [id number] 11/03/2018 [facility] 10:39 AM [facility] Blood Red Blood 11/03/2018 [facility] Component Cells 10:39 AM [facility] Leukocyte HOSPITAL Reduced Division 00 11/03/2018 [facility] Number 10:39 AM [facility] Status of No longer 11/07/2018 [facility] Unit available 3:00 AM [facility] 11/07/2018 HOSPITAL 0300 Blood Product [id number] 11/03/2018 [facility] Code 10:39 AM [facility] Unit Status [facility] Specimen Anatomical Collection Method Collection Time Receive d Time (Source) Location / / Volume Laterality 11/03/2018 9:10 AM 9 9:19 PERSONNEL ADVISER AM PERSONNEL ADVISER Juan Lewis MD LABORATORY Performing Organization Address City/State/ZIP Code Phon e Number M [facility] [address], [place] [address] [facility] [address] [place] [address], [facility] [address], [place] [address], [facility] [phone] (ABNORMAL) ABO/Rh type and screen (11/03/2018 9:10 AM PERSONNEL ADVISER) [facility] Soysuper Method Time Signature Units Ordered 4 11/05/2018 [facility] 1:30 PM [facility] ABO O 11/03/2018 [facility] 10:15 AM [facility] RH(D) Pos [facility] Antibody Pos (A) 11/03/2018 [facility] Screen 10:15 AM [facility] Test Valid [place] 11/03/2018 [place] Only At [facility] 9:31 AM [facility] Specimen 11/06/2018 11/03/2018 [place] Expires 9:31 AM [facility] Crossmatch Red Blood 11/03/2018 [place] Cells 9:31 AM [facility] Specimen Anatomical Collection Method Collection Time Receive d Time (Source) Location / / Volume Laterality Blood specimen 11/03/2018 9:10 AM 019 9:19 (specimen) PERSONNEL ADVISER AM PERSONNEL ADVISER Juan Lewis MD LAB - BLOOD BANK TEST ORDER Performing Organization Address City/State/ZIP Code Phon e Number M [facility] [address] [place] [address] [facility] [address] [place] [address], [facility] [phone] documented in this encounter Visit Diagnoses Diagnosis Encounter for pre-operative laboratory t esting Preoperative examination, unspecified documented in this encounter Care Teams Outboard Motor Mechanic Relationship Specialty Start Date End Date Clinic, [facility] PCP - General 05/12/[address] [place] [phone] documented as of this encounter
--- OUTSIDE RECORDS SUMMARY | 2022-07-03 14:25 | XMS_ITS | Encounter Summary ---
:1940 Author Organization [place] Address [address] 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 Periop Services Procedures ENDOVASCULAR REPAIR ANEURYSM THORACIC AORTIC [address], [address] [place] [address] Phone: Referral ID Status Reason Start Date Expiration Date Visits Requ ested Visits Authorized [id number] 1 1 Encounter Details Date Type Department Care Team Description 11/05/2018 Surgery [facility] Juan Lewis THORACIC ENDOVASCULAR [place] PeriOP MD Elijah ANEURYSM REPAIR WITH Services [address] [employer], [address] [place] [address] [place] [address] [phone] Surgery Details Date/Time Status Location OR Service [...] Comments Blood Pressure 159/88 11/05/2018 9:00 AM FINE UNHAIRER Pulse 57 11/05/2018 9:00 AM FINE UNHAIRER Temperature 36.7 ??C (98.1 ??F) 11/05/2018 6:27 AM FINE UNHAIRER Respiratory Rate 21 11/05/2018 9:05 AM FINE UNHAIRER Oxygen Saturation 100% 11/05/2018 9:05 AM FINE UNHAIRER Inhaled Oxygen Concentration - - Weight 84.3 kg (185 lb 14.4 oz) 11/05/2018 6:27 AM FINE UNHAIRER Height 167.6 cm (5' 6) 11/05/2018 6:27 AM FINE UNHAIRER Body Mass Index 31.06 11/05/2018 6:27 AM FINE UNHAIRER documented in this encounter Discharge Summaries Bessy Mccray MD - 11/09/2018 10:56 AM CST Physician Discharge Summary Patient ID: Speedy Hendricks [id number] 78 year old 1940 Admit date: 11/05/2018 [...] an oral diet. He was discharged to [facility] on POD#4 in stable condition. Consults: pulmonary/intensive [...] to. Signed: Bessy Mccray 11/09/2018 10:56 AM UNHAIRER Associated attestation - Juan Lewis MD - 11/11/2018 3:10 PM FINE UNHAIRER Physician Attestation I, Juan Lewis, have reviewed [...] Traylor RN - 11/09/2018 11:47 AM CST UNHAIRER AttachmentsThe following attachments cannot be sent through Care Everywhere.(S) TREATING A THORACIC AORTIC ANEURYSM (TAA): ENDOVASCULAR GRAFT (ROMANIAN) documented in this encounter Medications at Time [...] home with family via car.All questions answered. UNHAIRER Gurwinder Godoy MD - 11/09/2018 12:02 PM CST [facility] Vascular Medicine Progress Note Date of Service (when I saw the patient): 11/09/2018 Physician Supervisory Attestation: I have reviewed and discussed with the physician assistant production manager their history, physical and plan and independently [...] Discussed with vascular surgery service. Gurwinder Godoy MD,[facility] Vascular Medicine service 11/09/2018 Assessment & Plan [...] Rate: 93 Resp: 22 SpO2: 93 % [id number]: None (Room air) Vitals: 11/06/18 0211 11/07/18 [...] = values in this interval not displayed. UNHAIRER Bessy Mccray MD - 11/09/2018 7:36 AM [...] Bessy Martinez MD Vascular Surgery Fellow Pager UNHAIRER Associated attestation - Butch Brown MD - 11/16/2018 9:50 AM FINE UNHAIRER I was involved with the assessment and plan, and I agree with the findings and plan of care as documented in the fellow's note. MD Wilfredo Castillo Carley, RN - 11/08/2018 6:35 PM CST Pt arrived to station 33 @ 1820 UNHAIRER Aura Crooks RN - 11/08/2018 5:05 PM CST Pt had drained removed this AM. Draining moderate amount- MDA aware. SR. BP wnl- gave hydralazine x1prn. Chapman to be removed prior to transfer. Lines out and hemostasis achieved. Up to chair- tolerated well, SBA. Frequent neuros- wnl. Will call report to [facility] and will transfer at . UNHAIRER Dimas Chapman MD - 11/08/2018 12:41 PM CST [facility] Vascular Medicine [...] -- AST 19 -- -- -- -- UNHAIRER Bessy Mccray MD - 11/08/2018 8:18 AM [...] Bessy Martinez MD Vascular Surgery Fellow Pager UNHAIRER Associated attestation - Butch Brown MD - 11/16/2018 3:00 PM FINE UNHAIRER I was involved with the assessment and [...] please contact primary service first. Kaleb Rodriguez UNHAIRER Kristy Castañeda RN - 11/08/2018 6:50 AM CST [address] Tobin at bedside and removed lumbar drain. Pt tolerated well. Neuro checks q 30 min for the next 6 hours. Dry gaze and Tegaderm to site. Kristy Gamez RN UNHAIRER Zakia Tobin MD - 11/08/2018 6:47 AM [...] drain tubing following [place]clamping[place] [id number] down from 100s yesterday. At this time, [...] Nunes MD - 11/07/2018 11:55 AM CST Registered Nurse Supervisor: S: Mild groin pain this morning, but [...] Dr. Staley of vascular medicine at bedside. Registered Nurse Supervisor service will sign off for now. Please re-consult as needed. UNHAIRER Gurwinder Godoy MD - 11/07/2018 9:09 AM CST [facility] Vascular [...] any change in neuro status contact [facility] surgery first and consider neurocritical [...] good Reviewed last night events, discussed with Registered Nurse Supervisor and ICU nursing staff this am. Patients [...] . Avoid nephrotoxic meds. ?? Gurwinder Godoy MD,[facility] Vascular Medicine Interval History Reviewed last night [...] 7.8* 8.6 -- GLC 115* 121* -- UNHAIRER Danette Peck RN - 11/07/2018 8:50 AM [...] to keep SBP <160 and MAP >80. UNHAIRER Gurwinder Godoy MD - 11/06/2018 12:00 PM CST [facility] Vascular Medicine [...] . Avoid nephrotoxic meds. ?? Gurwinder Godoy MD,[facility] Vascular Medicine Interval History Reviewed last night [...] 7.8* 8.6 -- GLC 115* 121* -- UNHAIRER Millie Handley APRN AUTOMATIC PRESSER - 11/06/2018 11:55 AM CST Critical Care [...] Total critical care time today 35 min. UNHAIRER Associated attestation - Bishop Tran MD - 11/12/2018 10:50 AM FINE UNHAIRER Physician Attestation I, Bishop Tran, have reviewed [...] sufficient urine. Continue plan as documented in SUPERVISOR CELL MAINTENANCE note. The patient does not seem to [...] for the 11/05/2018 admission is complete. See [facility] admission navigator for prior to admission medications Medication history source reliability:Good Medication history interview source(s):Patient Medication history resources (including written lists, pill bottles, clinic record):Patient mailed in his medication list prior to surgery Primary pharmacy.[facility] Additional medication history information not noted on OPERATIONS DISPATCHER med list :None Time spent in [...] Bedtime 11/04/2018 at 2200 Yes Reported, Patient UNHAIRER documented in this encounter Procedure Notes Missael [...] management per anethesia/vasc surg Missael Garcia MD [phone] UNHAIRER documented in this encounter Consult Notes Kaleb Rodriguez NP - 11/05/2018 5:14 PM CSTAssociated Order(s): CARE TRANSITIONS NURSE IP CONSULT [facility] Consult Critical Care Service Date [...] Code Status Full Code Primary Care Physician [facility] Chief Complaint S/p TEVAR History of [...] IR Lumbar Drain Placement w Fluoro Narrative [facility] RADIOLOGY INTERVENTIONAL NEURORADIOLOGY PROCEDURAL NOTE [...] CPT codes included for physician reference only: 76088/24042 MISSAEL GARCIA MD Glucose by meter Result Value Ref Range Glucose 124 (H) 70 - 99 mg/dL UNHAIRER Associated attestation - Olive Bello MD - 11/05/2018 10:58 PM FINE UNHAIRER ICU STAFF: I have discussed Mr. Hendricks's [...] management per vascular surgery. Olive Bello MD #[id number] 11/05/18 Bill as Advanced Practice Provider only. Gurwinder Godoy MD - 11/05/2018 1:40 PM CST [facility] Vascular Medicine Consultation Date of Admission: 11/05/2018 Date of Consult (When I saw the patient): 11/05/18 Physician Supervisory Attestation: I have reviewed and discussed with the physician assistant production manager their history, physical and plan and independently [...] consult Copy to Dr. Debbie Godoy MD ,[facility] Vascular Medicine 11/05/2018 Assessment & Plan 1. [...] 78 year old male Primary Care Physician [facility] History of Present Illness Speedy Hendricks [...] Labs Lab Test 11/05/18 0655 A1C 5.2 UNHAIRER documented in this encounter Nursing Notes Isis Rivera, JOSE - 11/05/2018 8:40 AM CST Noted swelling left ankle UNHAIRER documented in this encounter Miscellaneous Notes Plan [...] sites soft, bruised, CMS intact. Voiding okay. UNHAIRER Plan of Care - Misty Villalobos RN - 11/08/2018 7:10 PM CST A/O x4. AVSS on RA. Tele NSR. Hydralazine given x1. Up SBA. Neuros intact. CMS intact. Groin sites, steri strips. Back site, moist drainage. Pulses, palpable, +2. Regular diet. Chapman removed at 1740, Due to void. UNHAIRER Provider Notification - Aura Crooks RN - 11/08/2018 11:37 AM CST MD NOTIFICATION Person Notified: MDA Notified Person's Name: Yeimi Notification Date/Time: 11/08/2017 1135 Notification Interaction: Paged physician Purpose of Notification: Pt remains to have drainage from lumbar drain site. Orders Received: MDA to come assess pt. UNHAIRER Plan of Care - Kristy Castañeda RN [...] access readiness for lumbar drain removal today. UNHAIRER Provider Notification - Kristy Castañeda RN - [...] assess pulling the drain. Kristy Castañeda RN UNHAIRER Plan of Care - Aura Crooks RN - 11/07/2018 6:17 PM CST Neuro: LUCAS- strength 5/5. PERRL. Complains of soreness in groin/hips from moving them too much. Ptup in chair for a hour and tolerated well. Ok'd with Anesthesia MD, [place], to get up in chair forno more [...] some blood in tubing- Anesthesia MD aware. UNHAIRER Plan of Care - Danette Peck RN - 11/07/2018 1:12 PM CST [id number] Continued with numbness bilateral top of thighs. [...] and dtr in room when Drs here. UNHAIRER Provider Notification - Ramiro Lozano RN - 11/07/2018 6:17 AM CST Paged vascular surgery fellow Ashanti regarding new numbness to anterior thighs. CSF has been drained, will begin 500ml bolus unless directed otherwise. UNHAIRER Plan of Care - Ramiro Lozano RN [...] clamped now. Daughter Raquel updated this morning. UNHAIRER Provider Notification - Ramiro Lozano RN - 11/07/2018 5:[address] Wang regarding new leg pain and ICP increase. Opening drain for 15ml CSF over 1 hr per order. UNHAIRER Plan of Care - Danette Peck RN - 11/06/2018 4:34 PM CST [id number] Neuro checks remain intact. Able to move [...] be retested for MRSA per infection control. UNHAIRER Plan of Care - Ramiro Lozano RN [...] this shift. Daughter Raquel updated this morning. UNHAIRER Plan of Care - Danette Peck RN - 11/05/2018 9:43 PM CST [id number] Neuro: intact. Able to move hips slightly [...] by physicians. Care transferred to next nurse. UNHAIRER Provider Notification - Ramiro Lozano RN - 11/05/2018 7:46 PM CST Notified marketing operations associate regarding failure to meet MAP goal of 80, new orders received. UNHAIRER Op Note - Butch Brown MD - [...] descending aortic angiogram SURGEON: Butch Brown MD BANQUET HOUSEPERSON: Kannan Morse MD; Bessy Mas MD - [...] then able to upsized to a 6 [place] sheath over a Bentson wire.The patient was [...] femoral artery and upsized to an 11 [place] sheath. We then able to insert JULIANE [...] was removed and backfilled with a 16 [place] dry seal on the left.At this point [...] superficial femoral artery access which was 6 [place] sheath with an Angio-Seal closure device performed [...] the drain. Butch Brown MD Vascular Surgery UNHAIRER Brief Op Note - Bessy Mccray MD - 11/05/2018 12:29 PM CST [facility] Brief Operative Note Pre-operative diagnosis: [...] Palp DP bilaterally Complications: None. Implants: None. UNHAIRER Associated attestation - Butch Brown MD - 11/05/2018 1:09 PM FINE UNHAIRER Butch Brown MD IR Note - Gwen Rivas RN - 11/05/2018 10:27 AM CST Interventional Radiology Intra-procedural Nursing Note Patient Name: Speedy Hendricks Today's Date: November 05, 2018 Start Time: 849 End of procedure time: 904 Procedure: lumbar drain placement Report given to: Dr. See, anesthesia Time pt departs: 0920 Tobacco Conditioner: n/a Other Notes: patient tolerated well. Drain connected to closed drainage system flushed with preservative free NS per Dr. Haro. 1mg Versed and 50mcg Fentanyl IV given for additional sedation (had received 4mg Versed and 100mcg Fentanyl in pre-op prior to arrival). SR on monitor .VSS. Patient taken back to pre-op bay in stable condition. Gwen Rivas RNshop girl Radiology UNHAIRER documented in this encounter Plan of Treatment Not on filedocumented as of this encounter Procedures Procedure Name Priority Date/Time Associated Comments Diagnosis CBC WITH PLATELETS & Routine 11/09/2018 7:41 AM Descending tho racic Results for this DIFFERENTIAL FINE UNHAIRER aortic aneurysm (H) procedur e are in the results section. COMPREHENSIVE Routine 11/09/2018 7:41 AM Descending thoracic R esults for this METABOLIC PANEL FINE UNHAIRER aortic aneurysm (H) proce dure are in the results section. MAGNESIUM Routine 11/08/2018 3:40 AM Descending thoracic Re sults for this FINE UNHAIRER aortic aneurysm (H) procedur e are in the results section. COMPREHENSIVE Routine 11/08/2018 3:40 AM Descending thoracic R esults for this METABOLIC PANEL FINE UNHAIRER aortic aneurysm (H) proce dure are in the results section. CBC WITH PLATELETS Routine 11/08/2018 3:40 AM Descending thora cic Results for this FINE UNHAIRER aortic aneurysm (H) procedur e are in the results section. CBC WITH PLATELETS STAT 11/07/2018 3:00 PM Descending thora cic Results for this FINE UNHAIRER aortic aneurysm (H) procedur e are in the results section. CBC WITH PLATELETS & Timed 11/07/2018 9:50 AM Descending tho racic Results for this DIFFERENTIAL FINE UNHAIRER aortic aneurysm (H) procedur e are in the results section. MAGNESIUM Routine 11/07/2018 9:50 AM Descending thoracic Re sults for this FINE UNHAIRER aortic aneurysm (H) procedur e are in the results section. BASIC METABOLIC PANEL Timed 11/07/2018 9:50 AM Descending th oracic Results for this FINE UNHAIRER aortic aneurysm (H) procedur e are in the results section. GLUCOSE BY METER Routine 11/07/2018 7:44 AM Descending thoraci c Results for this FINE UNHAIRER aortic aneurysm (H) procedur e are in the results section. GLUCOSE BY METER Routine 11/07/2018 3:49 AM Descending thoraci c Results for this FINE UNHAIRER aortic aneurysm (H) procedur e are in the results section. GLUCOSE BY METER Routine 11/07/2018 12:08 Descending thoracic Results for this AM FINE UNHAIRER aortic aneurysm (H) procedur e are in the results section. GLUCOSE BY METER Routine 11/06/2018 7:53 PM Descending thoraci c Results for this FINE UNHAIRER aortic aneurysm (H) procedur e are in the results section. GLUCOSE BY METER Routine 11/06/2018 11:02 Descending thoracic Results for this AM FINE UNHAIRER aortic aneurysm (H) procedur e are in the results section. GLUCOSE BY METER Routine 11/06/2018 7:38 AM Descending thoraci c Results for this FINE UNHAIRER aortic aneurysm (H) procedur e are in the results section. LACTIC ACID WHOLE Routine 11/06/2018 4:15 AM Descending thorac ic Results for this BLOOD FINE UNHAIRER aortic aneurysm (H) procedur e are in the results section. BASIC METABOLIC PANEL Routine 11/06/2018 4:15 AM Descending th oracic Results for this FINE UNHAIRER aortic aneurysm (H) procedur e are in the results section. CBC WITH PLATELETS Routine 11/06/2018 4:15 AM Descending thora cic Results for this FINE UNHAIRER aortic aneurysm (H) procedur e are in the results section. GLUCOSE BY METER Routine 11/06/2018 1:12 AM Descending thoraci c Results for this FINE UNHAIRER aortic aneurysm (H) procedur e are in the results section. MRSA MSSA PCR, NASAL STAT 11/05/2018 11:41 Descending thora cic Results for this SWAB PM FINE UNHAIRER aortic aneurysm (H) procedur e are in the results section. GLUCOSE BY METER Routine 11/05/2018 8:16 PM Descending thoraci c Results for this FINE UNHAIRER aortic aneurysm (H) procedur e are in the results section. GLUCOSE BY METER Routine 11/05/2018 4:39 PM Descending thoraci c Results for this FINE UNHAIRER aortic aneurysm (H) procedur e are in the results section. INR STAT 11/05/2018 4:35 PM Descending thoracic Re sults for this FINE UNHAIRER aortic aneurysm (H) procedur e are in the results section. LACTIC ACID WHOLE STAT 11/05/2018 4:35 PM Descending thorac ic Results for this BLOOD FINE UNHAIRER aortic aneurysm (H) procedur e are in the results section. BASIC METABOLIC PANEL STAT 11/05/2018 4:35 PM Descending th oracic Results for this FINE UNHAIRER aortic aneurysm (H) procedur e are in the results section. CBC WITH PLATELETS STAT 11/05/2018 4:35 PM Descending thora cic Results for this FINE UNHAIRER aortic aneurysm (H) procedur e are in the results section. IR THORACIC Routine 11/05/2018 12:09 Descending thoracic Resu lts for this ENDOVASCULAR STENT PM FINE UNHAIRER aortic aneurysm (H) pr ocedure are in GRAFT the results section. REPAIR, ANEURYSM, 11/05/2018 9:35 AM DESCENDING THORAC IC THORACIC AORTIC, FINE UNHAIRER AORTIC ANEURYSM ENDOVASCULAR Special Needs BLOOD TRANSFUSION ISSUE (RAR E ANTIBODIES) PT WILL DO A TYPE AND CROSS ON 11/03 JALEEL 10/28 IR LUMBAR DRAIN Routine 11/05/2018 9:10 AM Result s for this PLACEMENT W FLUORO FINE UNHAIRER procedure are in the results section. EKG 12-LEAD, TRACING STAT 11/05/2018 6:58 AM R esults for this ONLY FINE UNHAIRER procedure are i n the results section. POTASSIUM STAT 11/05/2018 6:55 AM Descending thoracic Re sults for this FINE UNHAIRER aortic aneurysm (H) procedur e are in the results section. LIPID PROFILE STAT 11/05/2018 6:55 AM Descending thoracic R esults for this FINE UNHAIRER aortic aneurysm (H) procedur e are in the results section. HEMOGLOBIN A1C STAT 11/05/2018 6:55 AM Descending thoracic Results for this FINE UNHAIRER aortic aneurysm (H) procedur e are in the results section. CREATININE STAT 11/05/2018 6:55 AM Descending thoracic Re sults for this FINE UNHAIRER aortic aneurysm (H) procedur e are in the results section. XR CHEST PORT 1 VIEW STAT 11/05/2018 6:40 AM R esults for this FINE UNHAIRER procedure are i n the results section. EKG CARDIAC - HIM 09/24/2018 12:00 AM SCAN FINE UNHAIRER documented in this encounter Results (ABNORMAL) CBC with platelets differential (11/09/2018 7:41 AM FINE UNHAIRER) Component Value Ref Test Analysis Performed At [facility] gist Range Method Time Signature WBC 9.3 4.0 - 11/09/2018 [facility] 11.0 8:06 AM [facility] 10e9/L [facility] RBC Count 3.55 (L) 4.4 - 11/09/2018 [facility] 5.9 8:06 AM [facility] [address] [place] [address] Hemoglobin 11.3 (L) 13.3 - 11/09/2018 [facility] 17.7 8:06 AM [facility] Hematocrit 33.7 (L) 40.0 - 11/09/2018 [facility] 53.0 % 8:06 AM [facility] MCV 95 78 - 100 11/09/2018 [facility] fl 8:06 AM [facility] MCH 31.8 26.5 - 11/09/2018 [facility] 33.0 pg 8:06 AM [facility] MCHC 33.5 31.5 - 11/09/2018 [facility] 36.5 8:06 AM [facility] RDW 13.9 10.0 - 11/09/2018 [facility] 15.0 % 8:06 AM [facility] Platelet Count 83 (L) 150 - 11/09/2018 [facility] 450 8:[address] Diff Method Manual 11/09/2018 [facility] Differential 8:31 AM [facility] % Neutrophils 85.0 % 11/09/2018 [facility] 8:31 AM [facility] % Lymphocytes 6.0 % 11/09/2018 [facility] 8:31 AM [facility] % Monocytes 7.0 % 11/09/2018 [facility] 8:31 AM [facility] % Eosinophils 2.0 % 11/09/2018 [facility] 8:31 AM [facility] % Basophils 0.0 % 11/09/2018 [facility] 8:31 AM [facility] Absolute 7.9 1.6 - 11/09/2018 [facility] Neutrophil 8.3 8:[address] Absolute 0.6 (L) 0.8 - 11/09/2018 [facility] Lymphocytes 5.3 8:[address] Absolute 0.7 0.0 - 11/09/2018 [facility] Monocytes 1.3 8:[address] Absolute 0.2 0.0 - 11/09/2018 [facility] Eosinophils 0.7 8:[address] Absolute 0.0 0.0 - 11/09/2018 [facility] Basophils 0.2 8:[address] RBC Morphology Consistent with 11/09/2018 [place] reported results 8:31 AM [facility] Platelet Automated count 11/09/2018 [facility] Estimate confirmed. 8:31 AM [facility] morphology is normal. Specimen Anatomical Collection Method Collection Time Receive d Time (Source) Location / / Volume Laterality Blood specimen 11/09/2018 7:41 AM 019 7:51 (specimen) FINE UNHAIRER AM FINE UNHAIRER Dimas Chapman MD LAB - BLOOD ORDERABLES Performing Organization Address City/State/ZIP Code Phon e Number [facility] [address] [place] [address] [facility] [address] [place] [address], [place] [phone] (ABNORMAL) Comprehensive metabolic panel (11/09/2018 7:41 AM FINE UNHAIRER) athologist Signature Sodium 144 133 - 144 11/09/2018 [place] mmol/L 8:11 AM [facility] Potassium 4.0 3.4 - 5.3 11/09/2018 [place] mmol/L 8:11 AM [facility] Chloride 113 (H) 94 - 109 11/09/2018 [place] mmol/L 8:11 AM [facility] Carbon Dioxide 22 20 - 32 11/09/2018 [place] mmol/L 8:17 AM [facility] Anion Gap 9 3 - 14 11/09/2018 [place] mmol/L 8:17 AM [facility] Glucose 94 70 - 99 11/09/2018 [place] mg/dL 8:17 AM [facility] Urea Nitrogen 21 7 - 30 11/09/2018 [place] mg/dL 8:17 AM [facility] Creatinine 1.24 0.66 - 11/09/2018 [facility] 1.25 mg/dL 8:17 AM [facility] GFR Estimate 56 (L) >60 11/09/2018 [place] mL/min/{1. 8:17 AM [facility] 73_m2} HOSPITAL Comment: Non GFR Calc Starting 10/05/2018, serum creatinine ba sed estimated GFR (eGFR) will be calculated using the Chronic Kidney Dise ase Epidemiology Collaboration (CKD-EPI) equation. GFR Estimate If 65 >60 mL/min/{1.73_m2} 11/09/2018 8: 17 AM [facility] Comment: GFR Calc Starting 10/05/2018, serum creatinine ba sed estimated GFR (eGFR) will be calculated using the Chronic Kidney Dise ase Epidemiology Collaboration (CKD-EPI) equation. Calcium 8.4 (L) 8.5 - 10.1 11/09/2018 8:17 AM [facility] mg/dL [facility] Bilirubin Total 1.3 0.2 - 1.3 mg/dL 11/09/2018 8:19 AM [facility] Albumin 2.4 (L) 3.4 - 5.0 g/dL 11/09/2018 8:19 AM [facility] Protein Total 6.2 (L) 6.8 - 8.8 g/dL 11/09/2018 8:19 AM [facility] Alkaline Phosphatase 72 40 - 150 U/L 11/09/2018 8:19 AM [facility] ALT 17 0 - 70 U/L 11/09/2018 8:[address] [facility] AST 15 0 - 45 U/L 11/09/2018 8:[address] [facility] Specimen Anatomical Collection Method Collection Time Receive d Time (Source) Location / / Volume Laterality Blood specimen 11/09/2018 7:41 AM 019 7:51 (specimen) FINE UNHAIRER AM FINE UNHAIRER Dimas Chapman MD LAB - BLOOD ORDERABLES Performing Organization Address City/State/ZIP Code Phon e Number [facility] [address] [address] [facility] [address] [address], U [phone] Magnesium Level scheduled every Thu (11/08/2018 3:40 AM FINE UNHAIRER) P athologist Signature Magnesium 1.7 1.6 - 2.3 11/08/2018 [place] mg/dL 4:06 AM [facility] Specimen Anatomical Collection Method Collection Time Receive d Time (Source) Location / / Volume Laterality Blood specimen 11/08/2018 3:40 AM 019 3:46 (specimen) FINE UNHAIRER AM FINE UNHAIRER Dimas Chapman MD LAB - BLOOD ORDERABLES Performing Organization Address City/State/ZIP Code Phon e Number [facility] [address] [address] [phone] [facility] [address] [place] [address], [place] [phone] (ABNORMAL) Comprehensive metabolic panel (11/08/2018 3:40 AM FINE UNHAIRER) Analysis Performed At Patho logist Time Signature Sodium 142 133 - 144 11/08/2018 [place] mmol/L 3:58 AM [facility] Potassium 4.2 3.4 - 5.3 11/08/2018 [place] mmol/L 3:58 AM [facility] Chloride 111 (H) 94 - 109 11/08/2018 [place] mmol/L 3:58 AM [facility] Carbon Dioxide 22 20 - 32 11/08/2018 [place] mmol/L 4:04 AM [facility] Anion Gap 9 3 - 14 11/08/2018 [place] mmol/L 4:04 AM [facility] Glucose 164 (H) 70 - 99 11/08/2018 [place] mg/dL 4:04 AM [facility] Urea Nitrogen 20 7 - 30 11/08/2018 [place] mg/dL 4:04 AM [facility] Creatinine 1.29 (H) 0.66 - 11/08/2018 [place] 1.25 mg/dL 4:04 AM [facility] GFR Estimate 53 (L) >60 11/08/2018 [place] mL/min/{1. 4:04 AM [facility] 73_m2} HOSPITAL Comment: Non GFR Calc Starting 10/05/2018, serum creatinine ba sed estimated GFR (eGFR) will be calculated using the Chronic Kidney Dise [facility] Epidemiology Collaboration (CKD-EPI) equation. GFR Estimate If 62 >60 mL/min/{1.73_m2} 11/08/2018 4: 04 AM [facility] Comment: GFR Calc Starting 10/05/2018, serum creatinine ba sed estimated GFR (eGFR) will be calculated using the Chronic Kidney Dise [place] Epidemiology Collaboration (CKD-EPI) equation. Calcium 8.2 (L) 8.5 - 10.1 11/08/2018 4:04 AM [facility] mg/dL [facility] Bilirubin Total 1.1 0.2 - 1.3 mg/dL 11/08/2018 4:06 AM [facility] Albumin 2.6 (L) 3.4 - 5.0 g/dL 11/08/2018 4:06 AM [facility] Protein Total 6.0 (L) 6.8 - 8.8 g/dL 11/08/2018 4:06 AM [facility] Alkaline Phosphatase 62 40 - 150 U/L 11/08/2018 4:06 AM [facility] ALT 18 0 - 70 U/L 11/08/2018 4:[address] [facility] AST 19 0 - 45 U/L 11/08/2018 4:[address] [facility] Specimen Anatomical Collection Method Collection Time Receive d Time (Source) Location / / Volume Laterality Blood specimen 11/08/2018 3:40 AM 019 3:46 (specimen) FINE UNHAIRER AM [facility] Gurwinder Godoy MD LAB - BLOOD ORDERABLES Performing Organization Address City/State/ZIP Code Phon e Number [employer] [facility] [employer] [address] [address] [phone] [facility] [address] [address], [place] [phone] (ABNORMAL) CBC (AM Draw) (11/08/2018 3:40 AM [facility]) Analysis Performed At Patho logist Time Signature WBC 11.2 (H) 4.0 - 11.0 11/08/2018 [place] 10e9/L 3:50 AM [facility] RBC Count 3.62 (L) 4.4 - 5.9 11/08/2018 [place] 10e12/L 3:50 AM [facility] Hemoglobin 11.6 (L) 13.3 - 11/08/2018 [place] 17.7 g/dL 3:50 AM [facility] Hematocrit 34.5 (L) 40.0 - 11/08/2018 [facility] 53.0 % 3:50 AM [facility] MCV 95 78 - 100 11/08/2018 [facility] fl 3:50 AM [facility] MCH 32.0 26.5 - 11/08/2018 [facility] 33.0 pg 3:50 AM [facility] MCHC 33.6 31.5 - 11/08/2018 [facility] 36.5 g/dL 3:50 AM [facility] RDW 13.9 10.0 - 11/08/2018 [facility] 15.0 % 3:50 AM [facility] Platelet Count 82 (L) 150 - 450 11/08/2018 [facility] 10e9/L 3:50 AM [facility] Specimen Anatomical Collection Method Collection Time Receive d Time (Source) Location / / Volume Laterality Blood specimen 11/08/2018 3:40 AM 019 3:46 (specimen) FINE UNHAIRER AM [facility] Gurwinder Godoy MD LAB - BLOOD ORDERABLES Performing Organization Address City/State/ZIP Code Phon e Number [facility] [address] [address] [facility] [address] [address], [facility] [phone] (ABNORMAL) CBC with platelets (11/07/2018 3:00 PM [facility]) Analysis Performed At Patho logist Time Signature WBC 11.1 (H) 4.0 - 11.0 11/07/2018 [facility] 10e9/L 3:08 PM [facility] RBC Count 3.74 (L) 4.4 - 5.9 11/07/2018 [facility] 10e12/L 3:08 PM [facility] Hemoglobin 11.9 (L) 13.3 - 11/07/2018 [facility] 17.7 g/dL 3:08 PM [facility] Hematocrit 35.4 (L) 40.0 - 11/07/2018 [facility] 53.0 % 3:08 PM [facility] MCV 95 78 - 100 11/07/2018 [facility] fl 3:08 PM [facility] MCH 31.8 26.5 - 11/07/2018 [facility] 33.0 pg 3:08 PM [facility] MCHC 33.6 31.5 - 11/07/2018 [facility] 36.5 g/dL 3:08 PM [facility] RDW 14.1 10.0 - 11/07/2018 [facility] 15.0 % 3:08 PM [facility] Platelet Count 87 (L) 150 - 450 11/07/2018 [facility] 10e9/L 3:08 PM [facility] Specimen Anatomical Collection Method Collection Time Receive d Time (Source) Location / / Volume Laterality Blood specimen 11/07/2018 3:00 PM 019 3:05 (specimen) FINE UNHAIRER PM [facility] Bart Feliciano MD LAB - BLOOD ORDERABLES Performing Organization Address City/State/ZIP Code Phon e Number [facility] [address] [place] [address] [phone] [facility] [address] [place] [address], [place] [phone] Magnesium (11/07/2018 9:50 AM [facility]) P athologist Signature Magnesium 1.6 1.6 - 2.3 11/07/2018 [place] mg/dL 11:12 AM [facility] Specimen Anatomical Collection Method Collection Time Receive d Time (Source) Location / / Volume Laterality 11/07/2018 9:50 AM 9 [facility]ER 10:04 AM [facility] Gurwinder Godoy MD LAB - BLOOD ORDERABLES Performing Organization Address City/State/ZIP Code Phon e Number [facility] [address] [place] [address] [facility] [address] [place] [address], [place] [phone] (ABNORMAL) CBC with platelets differential (11/07/2018 9:50 AM [facility] [employer]) Patholo gist Method Time Signature WBC 10.4 4.0 - 11/07/2018 [facility] 11.0 10:[address] [facility] 10e9/L [facility] RBC Count 3.63 (L) 4.4 - 5.9 11/07/2018 [facility] 10e12/L 10:13 AM [facility] Hemoglobin 11.5 (L) 13.3 - 11/07/2018 [facility] 17.7 g/dL 10:13 AM [facility] Hematocrit 34.3 (L) 40.0 - 11/07/2018 [facility] 53.0 % 10:13 AM [facility] MCV 95 78 - 100 11/07/2018 [facility] fl 10:13 AM [facility] MCH 31.7 26.5 - 11/07/2018 [facility] 33.0 pg 10:13 AM [facility] MCHC 33.5 31.5 - 11/07/2018 [facility] 36.5 g/dL 10:13 AM [facility] RDW 14.0 10.0 - 11/07/2018 [facility] 15.0 % 10:13 AM [facility] Platelet Count 82 (L) 150 - 450 11/07/2018 [facility] 10e9/L 10:37 AM [facility] Diff Method Automated 11/07/2018 [facility] Method 10:37 AM [facility] % Neutrophils 78.8 % 11/07/2018 [facility] 10:37 AM [facility] % Lymphocytes 6.2 % 11/07/2018 [facility] 10:37 AM [facility] % Monocytes 14.7 % 11/07/2018 [facility] 10:37 [facility] % Eosinophils 0.2 % 11/07/2018 [facility] 10:37 AM [facility] % Basophils 0.0 % 11/07/2018 [facility] 10:37 AM [facility] % Immature 0.1 % 11/07/2018 [facility] Granulocytes 10:37 AM [facility] Nucleated RBCs 0 0 /100 11/07/2018 [facility] 10:37 AM [facility] Absolute 8.2 1.6 - 8.3 11/07/2018 [facility] Neutrophil 10e9/L 10:37 AM [facility] Absolute 0.6 (L) 0.8 - 5.3 11/07/2018 [facility] Lymphocytes 10e9/L 10:37 AM [facility] Absolute 1.5 (H) 0.0 - 1.3 11/07/2018 [facility] Monocytes 10e9/L 10:37 AM [facility] Absolute 0.0 0.0 - 0.7 11/07/2018 [place] Eosinophils 10e9/L 10:37 AM [facility] Absolute 0.0 0.0 - 0.2 11/07/2018 [facility] Basophils 10e9/L 10:37 AM [facility] Abs Immature 0.0 0 - 0.4 11/07/2018 [place] Granulocytes 10e9/L 10:37 AM [facility] Absolute 0.0 11/07/2018 [place] Nucleated RBC 10:37 AM [facility] Ovalocytes Slight 11/07/2018 [facility] 10:37 AM [facility] Platelet Automated 11/07/2018 [place] Estimate count 10:[address] [facility] confirmed. [facility] Platelet morphology is normal. Specimen Anatomical Collection Method Collection Time Receive d Time (Source) Location / / Volume Laterality Blood specimen 11/07/2018 9:50 AM 019 (specimen) FINE [employer]HAIRER 10:04 AM [facility] Gurwinder Godoy MD LAB - BLOOD ORDERABLES Performing Organization Address City/State/ZIP Code Phon e Number [facility] [address] [address] [phone] [facility] [address] [address], [facility] [phone] (ABNORMAL) Basic metabolic panel (11/07/2018 9:50 AM [facility]) Analysis Performed At Patho logist Time Signature Sodium 147 (H) 133 - 144 11/07/2018 [place] mmol/L 10:16 AM [facility] Potassium 4.1 3.4 - 5.3 11/07/2018 [place] mmol/L 10:16 AM [facility] Chloride 117 (H) 94 - 109 11/07/2018 [place] mmol/L 10:16 AM [facility] Carbon Dioxide 20 20 - 32 11/07/2018 [place] mmol/L 10:23 AM [facility] Anion Gap 10 3 - 14 11/07/2018 [place] mmol/L 10:23 AM [facility] Glucose 108 (H) 70 - 99 11/07/2018 [place] mg/dL 10:23 AM [facility] Urea Nitrogen 23 7 - 30 11/07/2018 [place] mg/dL 10:23 AM [facility] Creatinine 1.47 (H) 0.66 - 11/07/2018 [place] 1.25 mg/dL 10:23 AM [facility] GFR Estimate 46 (L) >60 11/07/2018 [place] mL/min/{1. 10:23 AM [facility] 73_m2} HOSPITAL Comment: Non GFR Calc Starting 10/05/2018, serum creatinine ba sed estimated GFR (eGFR) will be calculated using the Chronic Kidney Dise [facility] Epidemiology Collaboration (CKD-EPI) equation. GFR Estimate If 53 (L) >60 mL/min/{1.73_m2} 11/07/2018 10 :23 AM [place] Black [facility] Comment: GFR Calc Starting 10/05/2018, serum creatinine ba sed estimated GFR (eGFR) will be calculated using the Chronic Kidney Dise [facility] Epidemiology Collaboration (CKD-EPI) equation. Calcium 8.2 (L) 8.5 - 10.1 mg/dL 11/07/2018 10:23 AM [facility] Specimen Anatomical Collection Method Collection Time Receive d Time (Source) Location / / Volume Laterality Blood specimen 11/07/2018 9:50 AM 019 (specimen) FINE [employer]HAIRER 10:04 AM [facility] Gurwinder Godoy MD LAB - BLOOD ORDERABLES Performing Organization Address City/State/ZIP Code Phon e Number [facility] [address] [address] [facility] [address] [address], [facility] [phone] (ABNORMAL) Glucose by meter (11/07/2018 7:44 AM [facility] [employer]) P athologist Signature Glucose 112 (H) 70 - 99 11/07/2018 [facility] mg/dL 7:56 AM FINE [facility]HAIRER TEST, GLUCOSE Specimen Anatomical Collection Method Collection Time Receive d Time (Source) Location / / Volume Laterality 11/07/2018 7:44 AM 9 7:56 FINE UNHAIRER AM [facility]INE [facility]IRER Juan Lewis MD LAB - BEAKER POCT Performing Organization Address City/State/ZIP Code Phon e Number [facility] POINT OF CARE TEST, GLUCOSE POINT OF CARE TEST, GLUCOSE (ABNORMAL) Glucose by meter (11/07/2018 3:49 AM [facility]) P athologist Signature Glucose 105 (H) 70 - 99 11/07/2018 [facility] mg/dL 4:01 AM FINE [employer]IRER TEST, GLUCOSE Specimen Anatomical Collection Method Collection Time Receive d Time (Source) Location / / Volume Laterality 11/07/2018 3:49 AM 9 4:01 FINE UNHAIRER AM [facility]INE [facility]HAIRER Juan Lewis MD LAB - BEAKER POCT Performing Organization Address City/State/ZIP Code Phon e Number [facility] POINT OF CARE TEST, GLUCOSE POINT OF CARE TEST, GLUCOSE (ABNORMAL) Glucose by meter (11/07/2018 12:08 AM [facility]) P athologist Signature Glucose 119 (H) 70 - 99 11/07/2018 [facility] mg/dL 12:19 AM FINE UNHAIRER TEST, GLUCOSE Specimen Anatomical Collection Method Collection Time Receive d Time (Source) Location / / Volume Laterality 11/07/2018 12:08 11/07/2018 AM FINE [employer]HAIRER 12:19 AM FINE [employer]IRER Juan Lewis MD LAB - CAROLYN POCT Performing Organization Address City/State/ZIP Code Phon e Number [facility] POINT OF CARE TEST, GLUCOSE POINT OF CARE TEST, GLUCOSE (ABNORMAL) Glucose by meter (11/06/2018 7:53 PM FINE [employer]HAIRER) P athologist Signature Glucose 116 (H) 70 - 99 11/06/2018 [facility] mg/dL 8:04 PM FINE UNHAIRER TEST, GLUCOSE Specimen Anatomical Collection Method Collection Time Receive d Time (Source) Location / / Volume Laterality 11/06/2018 7:53 PM 9 8:04 FINE UNHAIRER PM FINE UNHAIRER Juan Lewis MD LAB - BEFOUZIA POCT Performing Organization Address City/State/ZIP Code Phon e Number [facility] POINT OF CARE TEST, GLUCOSE POINT OF CARE TEST, GLUCOSE (ABNORMAL) Glucose by meter (11/06/2018 11:02 AM FINE [employer]ER) P athologist Signature Glucose 109 (H) 70 - 99 11/06/2018 [facility] mg/dL 11:13 AM FINE UNHAIRER TEST, GLUCOSE Specimen Anatomical Collection Method Collection Time Receive d Time (Source) Location / / Volume Laterality 11/06/2018 11:02 11/06/2018 AM FINE [employer]HAIRER 11:13 AM [facility]INE [employer]HAIRER Juan YUAN - BEFOUZIA POCT Performing Organization Address City/State/ZIP Code Phon e Number [facility] POINT OF CARE TEST, GLUCOSE POINT OF CARE TEST, GLUCOSE (ABNORMAL) Glucose by meter (11/06/2018 7:38 AM [facility] [employer]) P athologist Signature Glucose 104 (H) 70 - 99 11/06/2018 [facility] mg/dL 7:50 AM FINE UNHAIRER TEST, GLUCOSE Specimen Anatomical Collection Method Collection Time Receive d Time (Source) Location / / Volume Laterality 11/06/2018 7:38 AM 9 7:50 FINE UNHAIRER AM FINE UNHAIRER Juan YUAN - BEFOUZIA POCT Performing Organization Address City/[facility]/ZIP Code Phon e Number [facility] POINT OF CARE TEST, GLUCOSE POINT OF CARE TEST, GLUCOSE Lactic acid whole blood (11/06/2018 4:15 AM FINE [employer]HAIRER) P athologist Signature Lactic Acid 1.4 0.7 - 2.0 11/06/2018 [place] mmol/L 4:40 AM [facility] Specimen Anatomical Collection Method Collection Time Receive d Time (Source) Location / / Volume Laterality Blood specimen 11/06/2018 4:15 AM 019 4:25 (specimen) FINE UNHAIRER AM [facility]ER Bessy Mccray MD LAB - BLOOD ORDERABLES Performing Organization Address City/[facility]/ZIP Code Phon e Number [facility] [address] [place] [address] [facility] [address] [place] [address], [place] [phone] (ABNORMAL) Basic metabolic panel (11/06/2018 4:15 AM [facility]) Analysis Performed At Patho logist Time Signature Sodium 142 133 - 144 11/06/2018 [facility] mmol/L 4:49 AM [facility] Potassium 4.4 3.4 - 5.3 11/06/2018 [place] mmol/L 4:49 AM [facility] Chloride 113 (H) 94 - 109 11/06/2018 [place] mmol/L 4:49 AM [facility] Carbon Dioxide 21 20 - 32 11/06/2018 [place] mmol/L 4:54 AM [facility] Anion Gap 8 3 - 14 11/06/2018 [place] mmol/L 4:54 AM [facility] Glucose 115 (H) 70 - 99 11/06/2018 [place] mg/dL 4:54 AM [facility] Urea Nitrogen 27 7 - 30 11/06/2018 [place] mg/dL 4:54 AM [facility] Creatinine 1.57 (H) 0.66 - 11/06/2018 [place] 1.25 mg/dL 4:54 AM [facility] GFR Estimate 42 (L) >60 11/06/2018 [place] mL/min/{1. 4:54 AM [facility] 73_m2} [facility]OSPITAL Comment: Non GFR Calc Starting 10/05/2018, serum creatinine ba sed estimated GFR (eGFR) will be calculated using the Chronic Kidney Dise [facility] Epidemiology Collaboration (CKD-EPI) equation. GFR Estimate If 49 (L) >60 mL/min/{1.73_m2} 11/06/2018 4: 54 AM [place] Black [facility] Comment: GFR Calc Starting 10/05/2018, serum creatinine ba sed estimated GFR (eGFR) will be calculated using the Chronic Kidney Dise [facility] Epidemiology Collaboration (CKD-EPI) equation. Calcium 7.8 (L) 8.5 - 10.1 mg/dL 11/06/2018 4:54 AM [facility] Specimen Anatomical Collection Method Collection Time Receive d Time (Source) Location / / Volume Laterality Blood specimen 11/06/2018 4:15 AM 019 4:25 (specimen) FINE UNHAIRER AM [facility] Bessy Mccray MD LAB - BLOOD ORDERABLES Performing Organization Address City/State/ZIP Code Phon e Number [facility] [address] [address] [phone] [facility] [address] [address], [place] [phone] (ABNORMAL) CBC with platelets (11/06/2018 4:15 AM [facility] [employer]) Analysis Performed At Patho logist Time Signature WBC 12.9 (H) 4.0 - 11.0 11/06/2018 [facility] 10e9/L 4:45 AM [facility] RBC Count 3.93 (L) 4.4 - 5.9 11/06/2018 [facility] 10e12/L 4:45 AM [facility] Hemoglobin 12.5 (L) 13.3 - 11/06/2018 [facility] 17.7 g/dL 4:45 AM [facility] Hematocrit 36.8 (L) 40.0 - 11/06/2018 [facility] 53.0 % 4:45 AM [facility] MCV 94 78 - 100 11/06/2018 [facility] fl 4:45 AM [facility] MCH 31.8 26.5 - 11/06/2018 [facility] 33.0 pg 4:45 AM [facility] MCHC 34.0 31.5 - 11/06/2018 [facility] 36.5 g/dL 4:45 AM [facility] RDW 13.2 10.0 - 11/06/2018 [facility] 15.0 % 4:45 AM [facility] Platelet Count 153 150 - 450 11/06/2018 [facility] 10e9/L 4:45 AM [facility] Specimen Anatomical Collection Method Collection Time Receive d Time (Source) Location / / Volume Laterality Blood specimen 11/06/2018 4:15 AM 019 4:25 (specimen) FINE UNHAIRER AM [facility] Bessy Mccray MD LAB - BLOOD ORDERABLES Performing Organization Address City/State/ZIP Code Phon e Number [facility] [address] [address] [facility] [address] [address], [place] [phone] (ABNORMAL) Glucose by meter (11/06/2018 1:12 AM FINE [employer]ER) P athologist Signature Glucose 126 (H) 70 - 99 11/06/2018 [facility] mg/dL 1:24 AM FINE UNHAIRER TEST, GLUCOSE Specimen Anatomical Collection Method Collection Time Receive d Time (Source) Location / / Volume Laterality 11/06/2018 1:12 AM 9 1:24 FINE UNHAIRER AM FINE UNHAIRER Juan YUAN - BEAKER POCT Performing Organization Address City/State/ZIP Code Phon e Number [facility] POINT OF CARE TEST, GLUCOSE POINT OF CARE TEST, GLUCOSE Methicillin Resist/Sens S. aureus PCR (11/05/2018 11:41 PM FINE UNHAIRER) [facility] Method Time Signature Specimen Nares 11/05/2018 [place] Description 11:45 PM FINE UNHAIRER [facility] Methicillin Negative NEG^Negat 11/06/2018 [facility] Resist/Sens S. shin 2:36 AM [facility] aureus PCR [facility] Comment: MRSA Negative: SA Negative ??MRSA and St aphylococcus aureus target DNA not detected, presumed negative for MRSA and SA colonization or the number of bacteria present may be below the limit of detection for the assay. FDA approved assay performed using [employer] eneXpert(R) real-time PCR. Specimen (Source) Anatomical Collection Method Collection Time Re ceived Time Location / / Volume Laterality Nasal structure 11/05/2018 11:41 11/06/19 19 (body structure) PM FINE UNHAIRER Bessy Mccray MD LAB - MICRO GENERAL ORDERABL ES Performing Organization Address City/[facility]/ZIP Code Phon e Number [facility] [address] [place] [address] [facility] [address] [place] [address], [facility] [phone] (ABNORMAL) Glucose by meter (11/05/2018 8:16 PM FINE UNHAIRER) P athologist Signature Glucose 128 (H) 70 - 99 11/05/2018 [facility] mg/dL 8:28 PM FINE UNHAIRER TEST, GLUCOSE Specimen Anatomical Collection Method Collection Time Receive d Time (Source) Location / / Volume Laterality 11/05/2018 8:16 PM 9 8:28 FINE UNHAIRER PM FINE UNHAIRER Juan YUAN - BEFOUZIA POCT Performing Organization Address City/State/ZIP Code Phon e Number [facility] POINT OF CARE TEST, GLUCOSE POINT OF CARE TEST, GLUCOSE (ABNORMAL) Glucose by meter (11/05/2018 4:39 PM FINE UNHAIRER) P athologist Signature Glucose 124 (H) 70 - 99 11/05/2018 [facility] mg/dL 4:50 PM FINE UNHAIRER TEST, GLUCOSE Specimen Anatomical Collection Method Collection Time Receive d Time (Source) Location / / Volume Laterality 11/05/2018 4:39 PM 9 4:50 FINE UNHAIRER PM FINE UNHAIRER Juan Lewis MD LAB - BEAKER POCT Performing Organization Address City/State/ZIP Code Phon e Number [facility] POINT OF CARE TEST, GLUCOSE POINT OF CARE TEST, GLUCOSE (ABNORMAL) CBC with platelets (11/05/2018 4:35 PM FINE [employer]HAIRER) Analysis Performed At Patho logist Time Signature WBC 7.3 4.0 - 11.0 11/05/2018 [facility] 10e9/L 5:22 PM [facility] RBC Count 4.35 (L) 4.4 - 5.9 11/05/2018 [facility] 10e12/L 5:22 PM [facility] Hemoglobin 13.7 13.3 - 11/05/2018 [facility] 17.7 g/dL 5:22 PM [facility] Hematocrit 40.9 40.0 - 11/05/2018 [facility] 53.0 % 5:22 PM [facility] MCV 94 78 - 100 11/05/2018 [facility] fl 5:22 PM [facility] MCH 31.5 26.5 - 11/05/2018 [facility] 33.0 pg 5:22 PM [facility] MCHC 33.5 31.5 - 11/05/2018 [facility] 36.5 g/dL 5:22 PM [facility] RDW 13.1 10.0 - 11/05/2018 [facility] 15.0 % 5:22 PM [facility] Platelet Count 108 (L) 150 - 450 11/05/2018 [facility] 10e9/L 5:22 PM [facility] Specimen Anatomical Collection Method Collection Time Receive d Time (Source) Location / / Volume Laterality Blood specimen 11/05/2018 4:35 PM 019 5:17 (specimen) FINE UNHAIRER PM FINE UNHAIRER Bessy Mccray MD LAB - BLOOD ORDERABLES Performing Organization Address City/State/ZIP Code Phon e Number [facility] [address] [address] [facility] [address] [address], [place] [phone] INR (11/05/2018 4:35 PM FINE UNHAIRER) P athologist Signature INR 1.03 0.86 - 1.14 11/05/2018 [facility] 5:33 PM [facility] Specimen Anatomical Collection Method Collection Time Receive d Time (Source) Location / / Volume Laterality Blood specimen 11/05/2018 4:35 PM 019 5:17 (specimen) FINE UNHAIRER PM FINE UNHAIRER Bessy Mccray MD LAB - BLOOD ORDERABLES Performing Organization Address City/State/ZIP Code Phon e Number [facility] [address] [place] [address] [facility] [address] [place] [address], [place] [phone] Lactic acid whole blood (11/05/2018 4:35 PM FINE [employer]HAIRER) P athologist Signature Lactic Acid 1.0 0.7 - 2.0 11/05/2018 [place] mmol/L 5:57 PM [facility] Specimen Anatomical Collection Method Collection Time Receive d Time (Source) Location / / Volume Laterality Blood specimen 11/05/2018 4:35 PM 019 5:18 (specimen) FINE UNHAIRER PM FINE UNHAIRER Bessy Mccray MD LAB - BLOOD ORDERABLES Performing Organization Address City/State/ZIP Code Phon e Number [facility] [address] [place] [address] [phone] [facility] [address] [place] [address], [place] [phone] (ABNORMAL) Basic metabolic panel (11/05/2018 4:35 PM FINE UNHAIRER) Analysis Performed At Patho logist Time Signature Sodium 143 133 - 144 11/05/2018 [place] mmol/L 5:38 PM [facility] Potassium 4.3 3.4 - 5.3 11/05/2018 [facility] mmol/L 5:38 PM [facility] Chloride 113 (H) 94 - 109 11/05/2018 [place] mmol/L 5:38 PM [facility] Carbon Dioxide 22 20 - 32 11/05/2018 [place] mmol/L 5:43 PM [facility] Anion Gap 8 3 - 14 11/05/2018 [place] mmol/L 5:43 PM [facility] Glucose 121 (H) 70 - 99 11/05/2018 [place] mg/dL 5:43 PM [facility] Urea Nitrogen 24 7 - 30 11/05/2018 [place] mg/dL 5:43 PM [facility] Creatinine 1.30 (H) 0.66 - 11/05/2018 [place] 1.25 mg/dL 5:43 PM [facility] GFR Estimate 53 (L) >60 11/05/2018 [place] mL/min/{1. 5:43 PM [facility] 73_m2} HOSPITAL Comment: Non GFR Calc Starting 10/05/2018, serum creatinine ba sed estimated GFR (eGFR) will be calculated using the Chronic Kidney Dise [facility] Epidemiology Collaboration (CKD-EPI) equation. GFR Estimate If 61 >60 mL/min/{1.73_m2} 11/05/2018 5: 43 PM [facility] Comment: GFR Calc Starting 10/05/2018, serum creatinine ba sed estimated GFR (eGFR) will be calculated using the Chronic Kidney Dise [facility] Epidemiology Collaboration (CKD-EPI) equation. Calcium 8.6 8.5 - 10.1 mg/dL 11/05/2018 5:43 PM [facility] Specimen Anatomical Collection Method Collection Time Receive d Time (Source) Location / / Volume Laterality Blood specimen 11/05/2018 4:35 PM 019 5:17 (specimen) [facility] PM [facility] Bessy Mccray MD LAB - BLOOD ORDERABLES Performing Organization Address City/State/ZIP Code Phon e Number [facility] [address] [id number] [facility] [address] [address], [place] [phone] IR Thoracic Endovascular Stent Graft (11/05/2018 12:09 PM [facility]) Anatomical Region Laterality Modality Chest Radio Fluoroscopy Specimen (Source) Anatomical Location Collection Method / Collectio n Time Received Time / Laterality Volume Impressions 11/06/2018 3:33 PM [facility] IMPRESSION: Successful deployment in 2 components for [...] KANNAN MORSE MD Narrative 11/06/2018 3:33 PM [facility] INTERVENTIONAL RADIOLOGY THORACIC ENDOVASCULAR STENT GRAFT ??11/05/2018 [...] tion. Over a series of maneuvers, 6 [place] vascular sheath was placed. From left groin [...] tion. Over a series of maneuvers, 6 [place] vascular sheath was placed. From left groin [...] Drain Placement w Fluoro (11/05/2018 9:10 AM [facility]) Anatomical Region Laterality Modality Spine Radio Fluoroscopy Specimen (Source) Anatomical Location Collection Method / Collectio n Time Received Time / Laterality Volume Narrative 11/05/2018 9:19 AM [facility] RADIOLOGY INTERVENTIONAL NEURORADIOLOGY PROCEDURAL NOTE [...] codes included for physician referen ce only: [id number] MISSAEL GARCIA MD Procedure Note Missael Garcia MD - 11/05/2018For matting of this note might be different from the original. [facility] RADIOLOGY INTERVENTIONAL NEURORADIOLOGY PROCEDURAL NOTE [...] codes included for physician referen ce only: [id number] MISSAEL GARCIA MD Butch Brown MD IMG IR ORDERABLES EKG 12-lead, tracing only (11/05/2018 6:58 AM [facility]) [facility] gist Method Time Signature Interpretation ECG Click View RADIOLOGY Image link RESULTS to view waveform and result Specimen (Source) Anatomical Collection Method Collection Time Re ceived Time Location / / Volume Laterality 11/05/2018 6:58 AM [facility] Juan Lewis MD ECG ORDERABLES Performing Organization Address City/State/ZIP Code Phon e Number RADIOLOGY RESULTS Potassium (11/05/2018 6:55 AM [facility]) athologist Signature Potassium 4.3 3.4 - 5.3 11/05/2018 [facility] mmol/L 7:15 AM [facility] Specimen Anatomical Collection Method Collection Time Receive d Time (Source) Location / / Volume Laterality Blood specimen 11/05/2018 6:55 AM 019 6:56 (specimen) [facility] AM [facility] Zakia Tobin MD LAB - BLOOD ORDERABLES Performing Organization Address City/State/ZIP Code Phon e Number [facility] [address] [place] [address] [phone] [facility] [address] [place] [address], [place] [phone] Lipid panel (11/05/2018 6:55 AM [facility]) Analysis Performed At Patho logist Time Signature Cholesterol 128 <200 mg/dL 11/05/2018 [facility] 7:20 AM [facility] Triglycerides 125 <150 mg/dL 11/05/2018 [facility] 7:21 AM [facility] HDL Cholesterol 59 >39 mg/dL 11/05/2018 [facility] 7:23 AM [facility] LDL Cholesterol 44 <100 mg/dL 11/05/2018 [facility] Calculated 7:23 AM [facility] Comment: Desirable: <100 mg/dl Non HDL Cholesterol 69 <130 mg/dL 11/05/2018 7:23 AM [facility] Specimen Anatomical Collection Method Collection Time Receive d Time (Source) Location / / Volume Laterality Blood specimen 11/05/2018 6:55 AM 019 6:56 (specimen) [facility] AM [facility] Juan Lewis MD LAB - BLOOD ORDERABLES Performing Organization Address City/State/ZIP Code Phon e Number [facility] [address] [place] [address] [facility] [address] [place] [address], [place] [phone] Hemoglobin A1c (11/05/2018 6:55 AM [facility]) P athologist Signature Hemoglobin A1C 5.2 0 - 5.6 % 11/05/2018 [facility] 7:30 AM [facility] Comment: Normal <5.7% Prediabetes 5.7-6.4% ??Diab etes 6.5% or higher - adopted from ADA consensus guidelines. Specimen Anatomical Collection Method Collection Time Receive d Time (Source) Location / / Volume Laterality Blood specimen 11/05/2018 6:55 AM 019 6:56 (specimen) [facility] AM [facility] Juan Lewis MD LAB - BLOOD ORDERABLES Performing Organization Address City/State/ZIP Code Phon e Number [facility] [address] [address] [phone] [facility] [address] [place] [address], [place] [phone] (ABNORMAL) Creatinine (11/05/2018 6:55 AM [facility]) athologist Signature Creatinine 1.52 (H) 0.66 - 11/05/2018 [place] 1.25 mg/dL 7:20 AM [facility] GFR Estimate 44 (L) >60 11/05/2018 [place] mL/min/{1. 7:20 AM [facility] 73_m2} [facility] Comment: Non GFR Calc Starting 10/05/2018, serum creatinine ba sed estimated GFR (eGFR) will be calculated using the Chronic Kidney Dise [facility] Epidemiology Collaboration (CKD-EPI) equation. GFR Estimate If 51 (L) >60 mL/min/{1.73_m2} 11/05/2018 7: 20 AM [facility] Comment: GFR Calc Starting 10/05/2018, serum creatinine ba sed estimated GFR (eGFR) will be calculated using the Chronic Kidney Dise [facility] Epidemiology Collaboration (CKD-EPI) equation. Specimen Anatomical Collection Method Collection Time Receive d Time (Source) Location / / Volume Laterality Blood specimen 11/05/2018 6:55 AM 019 6:56 (specimen) FINE [facility]ER AM [facility] Juan Lewis MD LAB - BLOOD ORDERABLES Performing Organization Address City/State/ZIP Code Phon e Number [facility] [address] [place] [address] [phone] [facility] [address] [place] [address], [place] [phone] XR Chest Port 1 View (11/05/2018 6:40 AM [facility]) Anatomical Region Laterality Modality Chest Digital Radiography Specimen (Source) Anatomical Location Collection Method / Collectio n Time Received Time / Laterality Volume Impressions 11/05/2018 6:58 AM [facility] IMPRESSION: No acute abnormality. TORI SANTIZO MD Narrative 11/05/2018 6:58 AM [facility] XR CHEST PORTABLE 1 VIEW ?? 11/05/2018 [...] CARDIAC - HIM SCAN (09/24/2018 12:00 AM [facility]ER) Specimen (Source) Anatomical Location Collection Method / [...] acetaminophen (TYLENOL) tablet Given 11/08/2018 11:04 PM [facility] 975 mg 975 mg 975 mg, Oral, EVERY 6 HOURS PRN, mild pain, fever, Starting on Thu11/05/18 at 1827, Maximum acetaminophen dose from all sources = 75 mg/kg/day not to exceed 4 grams/day. Given 11/08/2018 12:37 PM [facility] 975 mg Given 11/07/2018 11:03 AM [facility] 975 mg alum & mag hydroxide-simethicone (MYLANTA Given 11/08/2018 2:48 AM [facility]ER 30 mLs ES/MAALOX ES) suspension 30 mL 30 mL, Oral, EVERY 4 HOURS PRN, indigestion, Starting on Thu11/05/18 at 1510, Shake well. apixaban ANTICOAGULANT (ELIQUIS) tablet 2.5 Given 10/20 12:04 PM [facility] 2.5 mg mg 2.5 mg, Oral, 2 TIMES DAILY, First dose on Thu11/09/18 at 1115 atorvastatin (LIPITOR) tablet 40 mg Given 11/08/2018 8:20 PM [facility] 40 mg 40 mg, Oral, EVERY EVENING, First dose on Thu11/05/18 at 2000 Given 11/07/2018 7:49 PM [facility] 40 mg Given 11/06/2018 9:16 PM [facility] 40 mg BUPivacaine (MARCAINE) Given 11/05/2018 12:07 PM 20 mLs Operative Site/Surgical injection 0.5% PF [facility] Site PRN, Starting on Thu11/05/18 at 1207, Intra-procedure calcium carbonate (TUMS) chewable tablet Given 11/07/2018 10 :34 PM [facility] 1,000 mg 1,000 mg 1,000 mg, Oral, EVERY 2 HOURS PRN, heartburn, Starting on Thu11/06/18 at 0408, Do not give if calcium level greater than 10 mg/dL. Given 11/07/2018 12:05 AM [facility] 1,000 mg Given 11/06/2018 4:50 AM [facility]ER 1,000 mg cyclobenzaprine (FLEXERIL) tablet 5-10 m g Given 11/08/2018 3:58 AM [facility] 10 mg 5-10 mg, Oral, 3 TIMES DAILY PRN, muscle spasms, Starting on Thu11/07/18 at 1153 Given 11/07/2018 2:26 PM [facility] 5 mg diphenhydrAMINE (BENADRYL) injection 12. 5 mg 12.5 mg, Intravenous, EVERY 6 HOURS PRN, itching, Only give if patient unable to take PO., Starting on Thu11/05/18 at 151 0, Caution to be used when administering multiple FLIGHT HOSTESS depressing meds within a sh ort time frame. For ordered IV doses 1-50 mg, give IV Push undiluted. Give each 25 mg over a minimum of 1 minute. Extend in non-emergency diphenhydrAMINE (BENADRYL) solution 12.5 mg 12.5 mg, Oral, EVERY 6 HOURS PRN, itchin g, Starting on Thu11/05/18 at 1510, Caution to be used when administering multiple FLIGHT HOSTESS depressing meds within a short time frame. heparin 10,000 units in Given 11/05/2018 11:06 AM 200 mLs Operative Site/Surgical 1000 mL 0.9% sodium [facility]ER Site chloride PRN, Starting on Thu11/05/18 at 1106, Intra-procedure hydrALAZINE (APRESOLINE) injection 10-20 mg Given 11/08/2018 7:03 PM [facility]ER 10 mg 10-20 mg, Intravenous, EVERY 1 [...] over 1 minute. Given 11/08/2018 11:51 AM [facility]ER 20 mg Given 11/08/2018 3:36 AM [facility]ER 20 mg iopamidol (ISOVUE-300) IV Given 11/05/2018 12:42 PM 75 mLs Operative Site/Surgical solution 61% FINE UNHAIRER Site PRN, Starting on Thu11/05/18 at 1242, Intra-procedure labetalol (NORMODYNE/TRANDATE) injection 10-20 Given 0 11/08/2018 3:03 AM [facility]ER 10 mg mg 10-20 mg, Intravenous, EVERY [...] over 2 minutes. Given 11/08/2018 2:33 AM [facility]ER 20 mg Given 11/07/2018 10:35 PM [facility]ER 10 mg magnesium sulfate 4 g in 100 mL sterile water (premade) 4 g, Intravenous, Administer over 120 Minutes, EVERY 4 HOURS PRN, magnesium supplementation, Starting on 11/07/18 at 1152, For serum Mg++ less than 1.6 mg/dL Give 4 g and recheck magnesium level 2 hours aft er dose, and next AM. metoprolol tartrate (LOPRESSOR) tablet 5 0 mg Given 11/09/2018 8:28 AM [facility]ER 50 mg 50 mg, Oral, 2 TIMES DAILY, First dose on Thu11/08/18 at 2100, Hold for SBP < 90, HR < 50 Given 11/08/2018 8:20 PM [facility]ER 50 mg omeprazole (priLOSEC) CR capsule 20 mg Given 11/09/2018 6:33 AM FINE [facility]HAIRER 20 mg 20 mg, Oral, EVERY MORNING BEFORE BREAKFAST, First dose on Thu11/07/18 at 2345 Given 11/08/2018 8:22 AM [facility]HA[facility]ER 20 mg Given 11/07/2018 11:48 PM [facility]HAIRER 20 mg ondansetron (ZOFRAN) injection 4 mg Given 11/07/2018 11:48 PM [facility]HAIRER 4 mg 4 mg, Intravenous, EVERY 6 [...] half-tab 2.5-5 mg Given 11/08/2018 12:37 PM [facility]HAIRER 5 mg 2.5-5 mg, Oral, EVERY 4 HOURS PRN, moderate to severe pain, Starting on Thu11/05/18 at 1724 Given 11/08/2018 6:19 AM FINE [facility]HAIRER 5 mg Given 11/07/2018 7:49 PM FINE [facility]HAIRER 5 mg sennosides (SENOKOT) tablet 8.6 mg Given 11/08/2018 3:36 AM [facility]INE [facility]HAIRER 8.6 mg 8.6 mg, Oral, 2 TIMES DAILY PRN, constipation, Starting on Thu11/08/18 at 0250 sodium chloride (PF) 0.9% PF flush 3 mL Given 11/07/2018 4:12 PM [facility]HAIRER 3 mLs 3 mL, Intracatheter, EVERY 8 HOURS, First dose on Thu11/05/18 at 1515, And Q1H PRN, to lock peripheral IV dormant line. Given 11/07/2018 11:34 AM [facility]IRER 3 mLs Given 11/07/2018 12:06 AM [facility]HAIRER 10 mLs terazosin (HYTRIN) capsule 5 mg Given 11/08/2018 9:21 PM [facility]ER 5 mg 5 mg, Oral, AT BEDTIME, First dose on Thu11/05/18 at 2200 documented in this encounter Active and Recently Administered Medications Times are shown in [facility]. Scheduled Medication Order 11/07/2018 11/08/2018 11/09/2018 apixaban [...] Caution to be used when administering multiple FLIGHT HOSTESS depressing meds within a short time frame. For ordered IV doses 1-50 m g, give IV Push undiluted. Give each 25mg over a minimum of 1 minute. Extend in non-emergency diphenhydrAMINE (BENADRYL) solution 12.5 mg(Linked Group 1) 12.5 mg, Oral, EVERY 6 HOURS PRN, itchin g, Starting Thu11/05/18 at 1510, Caution to be used when administering multiple FLIGHT HOSTESS depressing meds within a short time frame. [...]
Caution to be used when administering multiple FLIGHT HOSTESS depressing meds within a short time frame.
Or diphenhydrAMINE (BENADRYL) injection 12.5 mgJump to med 12.5 mg, Intravenous, EVERY 6 HOURS PRN, itching, Only give if patient unable to take PO., Starting 11/05/18 at 1510
Caution to be used when administering multiple FLIGHT HOSTESS depressing meds within a short time frame. [...] documented as of this encounter Care Teams Music Rehabilitation Therapist Relationship Specialty Start Date End Date Clinic, Kehinde Santos PCP - General 05/12/17 [address] [phone] documented as of this encounter
--- OUTSIDE RECORDS SUMMARY | 2022-07-03 14:25 | XMS_ITS | Encounter Summary ---
:1940 Author Organization [place] Address [facility] [place] [address] Care Team Providers Name Role Phone Clinic, [facility] Primary Care Provider [phone] Reason for Referral Therapeutic Imaging/IR - Closed Specialty Diagnoses / Procedures Referred By Contact Refer red To Contact Diagnoses Descending thoracic aortic aneurysm (H) Juan Lewis MD Procedures IR Thoracic Endovascular Stent Graft [address] [place] [address] Referral ID Status Reason Start Date Expiration Date Visits Requ ested Visits Authorized [id number] Closed 10/28/2018 10/28/2019 1 1 NT BABYSITTER Reason for Visit Auth/Cert Specialty Diagnoses / Procedures Referred By Contact Refer red To Contact Surgery Diagnoses DESCENDING THORACIC AORTIC ANEURYSM Sh Periop Services Procedures ENDOVASCULAR REPAIR ANEURYSM THORACIC AORTIC [address] [place] [address] Phone: Referral ID Status Reason Start Date Expiration Date Visits Requ ested Visits Authorized [id number] 1 1 Encounter Details Date Type Department Care Team Description 11/05/2018 - Hospital Encounter [facility] Elizabeth Lewis MD [address] [place] [id number] Thoracic aortic aneurysm without rupture (H) (Primary Dx); 11/09/2018 Gallito Sommers MD [address] [place] [id number] Descending thoracic aortic aneurysm (H) Intermediate Care Butch Brown MD [address] [place] [id number] [address] [address] Social History Tobacco [...] Comments Blood Pressure 158/88 11/09/2018 8:28 AM INFANT BABYSITTER Pulse 100 11/09/2018 5:00 AM INFANT BABYSITTER Temperature 36.6 ??C (97.9 ??F) 11/09/2018 7:31 AM INFANT BABYSITTER Respiratory Rate 22 11/09/2018 8:00 AM INFANT BABYSITTER Oxygen Saturation 93% 11/09/2018 5:00 AM INFANT BABYSITTER Inhaled Oxygen Concentration - - Weight 87.3 kg (192 lb 7.4 oz) 11/09/2018 6:39 AM INFANT BABYSITTER Height 167.6 cm (5' 6) 11/05/2018 6:27 AM INFANT BABYSITTER Body Mass Index 31.06 11/05/2018 6:27 AM INFANT BABYSITTER documented in this encounter Discharge Summaries Bessy Mccray MD - 11/09/2018 10:56 AM CST Physician Discharge Summary Patient ID: Speedy Hendricks [id number] 78 year old 1940 Admit date: 11/05/2018 [...] oral diet. He was discharged to [facility] on POD#4 in stable condition. Consults: pulmonary/intensive [...] to. Signed: Bessy Mccray 11/09/2018 10:56 AM NT BABYSITTER Associated attestation - Juan Lewis MD - 11/11/2018 3:10 PM INFANT BABYSITTER Physician Attestation I, Juan Lewis, have reviewed [...] Traylor RN - 11/09/2018 11:47 AM CST NT BABYSITTER AttachmentsThe following attachments cannot be sent through Care Everywhere.(S) TREATING A THORACIC AORTIC ANEURYSM (TAA): ENDOVASCULAR GRAFT (AMHARIC) documented in this encounter Medications at Time [...] home with family via car.All questions answered. NT BABYSITTER Gurwinder Godoy MD - 11/09/2018 12:02 PM CST [facility] Vascular Medicine Progress Note Date of Service (when I saw the patient): 11/09/2018 Physician Supervisory Attestation: I have reviewed and discussed with the physician investment sales assistant their history, physical and plan and [...] vascular surgery service. Gurwinder Godoy MD,[facility] Vascular Medicine service 11/09/2018 Assessment & [...] Rate: 93 Resp: 22 SpO2: 93 % A1Zkcqmo: None (Room air) Vitals: 11/06/18 0211 11/07/18 [...] = values in this interval not displayed. NT BABYSITTER Bessy Mccray MD - 11/09/2018 7:36 AM [...] Bessy Martinez MD Vascular Surgery Fellow Pager NT BABYSITTER Associated attestation - Butch Brown MD - 11/16/2018 9:50 AM INFANT BABYSITTER I was involved with the assessment and plan, and I agree with the findings and plan of care as documented in the fellow's note. MD Wilfredo Castillo Carley, JOSE - 11/08/2018 6:35 PM CST Pt arrived to station 33 @ 1820 NT BABYSITTER Aura Crooks RN - 11/08/2018 5:05 PM CST Pt had drained removed this AM. Draining moderate amount- MDA aware. SR. BP wnl- gave hydralazine x1prn. Chapman to be removed prior to transfer. Lines out and hemostasis achieved. Up to chair- tolerated well, SBA. Frequent neuros- wnl. Will call report to [facility] and will transfer at p. NT BABYSITTER Dimas Chapman MD - 11/08/2018 12:41 PM CST [facility] Vascular Medicine Progress [...] -- AST 19 -- -- -- -- NT BABYSITTER Bessy Mccray MD - 11/08/2018 8:18 AM [...] Bessy Martinez MD Vascular Surgery Fellow Pager NT BABYSITTER Associated attestation - Butch Brown MD - 11/16/2018 3:00 PM INFANT BABYSITTER I was involved with the assessment and [...] please contact primary service first. Kaleb Rodriguez NT BABYSITTER Kristy Castañeda RN - 11/08/2018 6:50 AM [...] any neuro changes. ?? Zakia Tobin MD. NT BABYSITTER Bart Feliciano MD - 11/07/2018 3:39 PM [...] drain tubing following unclamping[place] [id number] down from 100s yesterday. At this time, [...] with any neuro changes. Bart Feliciano MD. NT BABYSITTER Christina Burrell MD - 11/07/2018 3:03 PM [...] Christina Burrell MD Vascular Surgery Fellow Pgr NT BABYSITTER Bishop Tran MD - 11/07/2018 11:55 AM CST Electrical Research Engineer: S: Mild groin pain this morning, but [...] Dr. Staley of vascular medicine at bedside. Electrical Research Engineer service will sign off for now. Please re-consult as needed. NT BABYSITTER Gurwinder Godoy MD - 11/07/2018 9:09 AM CST [facility] Vascular Medicine Progress [...] any change in neuro status contact [facility] surgery first and consider neurocritical [...] good Reviewed last night events, discussed with Electrical Research Engineer and ICU nursing staff this am. Patients [...] nephrotoxic meds. ?? Gurwinder Godoy MD,[facility] Vascular Medicine Interval History Reviewed last [...] 7.8* 8.6 -- GLC 115* 121* -- NT BABYSITTER Danette Peck RN - 11/07/2018 8:50 AM [...] to keep SBP <160 and MAP >80. NT BABYSITTER Gurwinder Godoy MD - 11/06/2018 12:00 PM CST [facility] Vascular Medicine Progress [...] nephrotoxic meds. ?? Gurwinder Godoy MD,[facility] Vascular Medicine Interval History Reviewed last [...] 7.8* 8.6 -- GLC 115* 121* -- NT BABYSITTER Millie Handley APRN INDUSTRIAL PAINTER - 11/06/2018 11:55 AM CST Critical Care [...] Total critical care time today 35 min. NT BABYSITTER Associated attestation - Bishop Tran MD - 11/12/2018 10:50 AM INFANT BABYSITTER Physician Attestation I, Bishop Tran, have reviewed [...] sufficient urine. Continue plan as documented in PLASTICS FABRICATION SUPERVISOR note. The patient does not seem [...] for the 11/05/2018 admission is complete. See [facility] admission navigator for prior to admission medications Medication history source reliability:Good Medication history interview source(s):Patient Medication history resources (including written lists, pill bottles, clinic record):Patient mailed in his medication list prior to surgery Primary pharmacy.[place] Additional medication history information not noted on HYDRAULIC BULL RIVETER OPERATOR med list :None Time spent in this [...] Bedtime 11/04/2018 at 2200 Yes Reported, Patient NT BABYSITTER documented in this encounter Procedure Notes Missael [...] management per anethesia/vasc surg Missael Garcia MD [phone] NT BABYSITTER documented in this encounter Consult Notes Kaleb Rodriguez NP - 11/05/2018 5:14 PM CSTAssociated Order(s): PENS AND PENCILS REPAIRER IP CONSULT [facility] Consult Critical Care Service Date of Admission: [...] IR Lumbar Drain Placement w Fluoro Narrative [facility] INTERVENTIONAL NEURORADIOLOGY PROCEDURAL NOTE FLUOROSCOPICALLY GUIDED [...] CPT codes included for physician reference only: 91875/48763 MISSAEL GARCIA MD Glucose by meter Result Value Ref Range Glucose 124 (H) 70 - 99 mg/dL NT BABYSITTER Associated attestation - Olive Bello MD - 11/05/2018 10:58 PM INFANT BABYSITTER ICU STAFF: I have discussed Mr. Hendricks's [...] management per vascular surgery. Olive Bello MD #[id number] 11/05/18 Bill as Advanced Practice Provider only. Gurwinder Godoy MD - 11/05/2018 1:40 PM CST [facility] Vascular Medicine Consultation Date of Admission: 11/05/2018 Date of Consult (When I saw the patient): 11/05/18 Physician Supervisory Attestation: I have reviewed and discussed with the physician investment sales assistant their history, physical and plan and [...] to Dr. Debbie Godoy MD ,[facility] Vascular Medicine 11/05/2018 Assessment & Plan [...] Labs Lab Test 11/05/18 0655 A1C 5.2 NT BABYSITTER documented in this encounter Nursing Notes Isis Rivera RN - 11/05/2018 8:40 AM CST Noted swelling left ankle NT BABYSITTER documented in this encounter Miscellaneous Notes Plan [...] sites soft, bruised, CMS intact. Voiding okay. NT BABYSITTER Plan of Care - Misty Villalobos RN - 11/08/2018 7:10 PM CST A/O x4. AVSS on RA. Tele NSR. Hydralazine given x1. Up SBA. Neuros intact. CMS intact. Groin sites, steri strips. Back site, moist drainage. Pulses, palpable, +2. Regular diet. Chapman removed at 1740, Due to void. NT BABYSITTER Provider Notification - Aura Crooks RN - 11/08/2018 11:37 AM CST MD NOTIFICATION Person Notified: MDA Notified Person's Name: Yeimi Notification Date/Time: 11/08/2017 1135 Notification Interaction: Paged physician Purpose of Notification: Pt remains to have drainage from lumbar drain site. Orders Received: MDA to come assess pt. NT BABYSITTER Plan of Care - Kristy Castañeda RN [...] access readiness for lumbar drain removal today. NT BABYSITTER Provider Notification - Kristy Castañeda RN - [...] assess pulling the drain. Kristy Castañeda RN NT BABYSITTER Plan of Care - Aura Crooks RN - 11/07/2018 6:17 PM CST Neuro: LUCAS- strength 5/5. PERRL. Complains of soreness in groin/hips from moving them too much. Ptup in chair for a hour and tolerated well. Ok'd with Anesthesia MD, [place], to get up in chair forno more [...] some blood in tubing- Anesthesia MD aware. NT BABYSITTER Plan of Care - Danette Peck RN - 11/07/2018 1:12 PM CST [id number] Continued with numbness bilateral top of thighs. [...] and dtr in room when Drs here. NT BABYSITTER Provider Notification - Ramiro Lozano RN - 11/07/2018 6:17 AM CST Paged vascular surgery fellow Ashanti regarding new numbness to anterior thighs. CSF has been drained, will begin 500ml bolus unless directed otherwise. NT BABYSITTER Plan of Care - Ramiro Lozano RN [...] clamped now. Daughter Raquel updated this morning. NT BABYSITTER Provider Notification - Ramiro Lozano RN - 11/07/2018 5:[address] Wang regarding new leg pain and ICP increase. Opening drain for 15ml CSF over 1 hr per order. NT BABYSITTER Plan of Care - Danette Peck RN - 11/06/2018 4:34 PM CST [id number] Neuro checks remain intact. Able to move [...] be retested for MRSA per infection control. NT BABYSITTER Plan of Care - Ramiro Lozano RN [...] this shift. Daughter Raquel updated this morning. NT BABYSITTER Plan of Care - Danette Peck RN - 11/05/2018 9:43 PM CST [id number] Neuro: intact. Able to move hips slightly [...] by physicians. Care transferred to next nurse. NT BABYSITTER Provider Notification - Ramiro Lozano RN - 11/05/2018 7:46 PM CST Notified interior design consultant regarding failure to meet MAP goal of 80, new orders received. NT BABYSITTER Op Note - Butch Brown MD - [...] descending aortic angiogram SURGEON: Butch Brown MD ONLINE MERCHANDISING COORDINATOR: Kannan Morse MD; Bessy Mas MD - [...] then able to upsized to a 6 Kazakh sheath over a Bentson wire.The patient was [...] femoral artery and upsized to an 11 Kazakh sheath. We then able to insert JULIANE [...] was removed and backfilled with a 16 Kazakh dry seal on the left.At this point [...] superficial femoral artery access which was 6 Kazakh sheath with an Angio-Seal closure device performed [...] the drain. Butch Brown MD Vascular Surgery NT BABYSITTER Brief Op Note - Bessy Mccray MD - 11/05/2018 12:29 PM CST [facility] Brief Operative Note Pre-operative diagnosis: DESCENDING THORACIC [...] Palp DP bilaterally Complications: None. Implants: None. NT BABYSITTER Associated attestation - Butch Brown MD - 11/05/2018 1:09 PM INFANT BABYSITTER Butch Brown MD IR Note - Gwen Rivas RN - 11/05/2018 10:27 AM CST Interventional Radiology Intra-procedural Nursing Note Patient Name: Speedy Hendricks Today's Date: November 05, 2018 Start Time: 0850 End of procedure time: 904 Procedure: lumbar drain placement Report given to: Dr. See, anesthesia Time pt departs: 919 Automation Analyst: n/a Other Notes: patient tolerated well. Drain connected to closed drainage system flushed with preservative free NS per Dr. Haro. 1mg Versed and 50mcg Fentanyl IV given for additional sedation (had received 4mg Versed and 100mcg Fentanyl in pre-op prior to arrival). SR on monitor .VSS. Patient taken back to pre-op bay in stable condition. Gwen Rivas RNassembler flexible leads Radiology NT BABYSITTER documented in this encounter Plan of Treatment Not on filedocumented as of this encounter Procedures Procedure Name Priority Date/Time Associated Comments Diagnosis CBC WITH PLATELETS & Routine 11/09/2018 7:41 AM Descending tho racic Results for this DIFFERENTIAL INFANT BABYSITTER aortic aneurysm (H) procedur e are in the results section. COMPREHENSIVE Routine 11/09/2018 7:41 AM Descending thoracic R esults for this METABOLIC PANEL INFANT BABYSITTER aortic aneurysm (H) proce dure are in the results section. MAGNESIUM Routine 11/08/2018 3:40 AM Descending thoracic Re sults for this INFANT BABYSITTER aortic aneurysm (H) procedur e are in the results section. COMPREHENSIVE Routine 11/08/2018 3:40 AM Descending thoracic R esults for this METABOLIC PANEL INFANT BABYSITTER aortic aneurysm (H) proce dure are in the results section. CBC WITH PLATELETS Routine 11/08/2018 3:40 AM Descending thora cic Results for this INFANT BABYSITTER aortic aneurysm (H) procedur e are in the results section. CBC WITH PLATELETS STAT 11/07/2018 3:00 PM Descending thora cic Results for this INFANT BABYSITTER aortic aneurysm (H) procedur e are in the results section. CBC WITH PLATELETS & Timed 11/07/2018 9:50 AM Descending tho racic Results for this DIFFERENTIAL INFANT BABYSITTER aortic aneurysm (H) procedur e are in the results section. MAGNESIUM Routine 11/07/2018 9:50 AM Descending thoracic Re sults for this INFANT BABYSITTER aortic aneurysm (H) procedur e are in the results section. BASIC METABOLIC PANEL Timed 11/07/2018 9:50 AM Descending th oracic Results for this INFANT BABYSITTER aortic aneurysm (H) procedur e are in the results section. GLUCOSE BY METER Routine 11/07/2018 7:44 AM Descending thoraci c Results for this INFANT BABYSITTER aortic aneurysm (H) procedur e are in the results section. GLUCOSE BY METER Routine 11/07/2018 3:49 AM Descending thoraci c Results for this INFANT BABYSITTER aortic aneurysm (H) procedur e are in the results section. GLUCOSE BY METER Routine 11/07/2018 12:08 Descending thoracic Results for this AM INFANT BABYSITTER aortic aneurysm (H) procedur e are in the results section. GLUCOSE BY METER Routine 11/06/2018 7:53 PM Descending thoraci c Results for this INFANT BABYSITTER aortic aneurysm (H) procedur e are in the results section. GLUCOSE BY METER Routine 11/06/2018 11:02 Descending thoracic Results for this AM INFANT BABYSITTER aortic aneurysm (H) procedur e are in the results section. GLUCOSE BY METER Routine 11/06/2018 7:38 AM Descending thoraci c Results for this INFANT BABYSITTER aortic aneurysm (H) procedur e are in the results section. LACTIC ACID WHOLE Routine 11/06/2018 4:15 AM Descending thorac ic Results for this BLOOD INFANT BABYSITTER aortic aneurysm (H) procedur e are in the results section. BASIC METABOLIC PANEL Routine 11/06/2018 4:15 AM Descending th oracic Results for this INFANT BABYSITTER aortic aneurysm (H) procedur e are in the results section. CBC WITH PLATELETS Routine 11/06/2018 4:15 AM Descending thora cic Results for this INFANT BABYSITTER aortic aneurysm (H) procedur e are in the results section. GLUCOSE BY METER Routine 11/06/2018 1:12 AM Descending thoraci c Results for this INFANT BABYSITTER aortic aneurysm (H) procedur e are in the results section. MRSA MSSA PCR, NASAL STAT 11/05/2018 11:41 Descending thora cic Results for this SWAB PM INFANT BABYSITTER aortic aneurysm (H) procedur e are in the results section. GLUCOSE BY METER Routine 11/05/2018 8:16 PM Descending thoraci c Results for this INFANT BABYSITTER aortic aneurysm (H) procedur e are in the results section. GLUCOSE BY METER Routine 11/05/2018 4:39 PM Descending thoraci c Results for this INFANT BABYSITTER aortic aneurysm (H) procedur e are in the results section. INR STAT 11/05/2018 4:35 PM Descending thoracic Re sults for this INFANT BABYSITTER aortic aneurysm (H) procedur e are in the results section. LACTIC ACID WHOLE STAT 11/05/2018 4:35 PM Descending thorac ic Results for this BLOOD INFANT BABYSITTER aortic aneurysm (H) procedur e are in the results section. BASIC METABOLIC PANEL STAT 11/05/2018 4:35 PM Descending th oracic Results for this INFANT BABYSITTER aortic aneurysm (H) procedur e are in the results section. CBC WITH PLATELETS STAT 11/05/2018 4:35 PM Descending thora cic Results for this INFANT BABYSITTER aortic aneurysm (H) procedur e are in the results section. IR THORACIC Routine 11/05/2018 12:09 Descending thoracic Resu lts for this ENDOVASCULAR STENT PM INFANT BABYSITTER aortic aneurysm (H) pr ocedure are in GRAFT the results section. REPAIR, ANEURYSM, 11/05/2018 9:35 AM DESCENDING THORAC IC THORACIC AORTIC, INFANT BABYSITTER AORTIC ANEURYSM ENDOVASCULAR Special Needs BLOOD TRANSFUSION ISSUE (RAR E ANTIBODIES) PT WILL DO A TYPE AND CROSS ON 11/03 JALEEL 10/28 IR LUMBAR DRAIN Routine 11/05/2018 9:10 AM Result s for this PLACEMENT W FLUORO INFANT BABYSITTER procedure are in the results section. EKG 12-LEAD, TRACING STAT 11/05/2018 6:58 AM R esults for this ONLY INFANT BABYSITTER procedure are i n the results section. POTASSIUM STAT 11/05/2018 6:55 AM Descending thoracic Re sults for this INFANT BABYSITTER aortic aneurysm (H) procedur e are in the results section. LIPID PROFILE STAT 11/05/2018 6:55 AM Descending thoracic R esults for this INFANT BABYSITTER aortic aneurysm (H) procedur e are in the results section. HEMOGLOBIN A1C STAT 11/05/2018 6:55 AM Descending thoracic Results for this INFANT BABYSITTER aortic aneurysm (H) procedur e are in the results section. CREATININE STAT 11/05/2018 6:55 AM Descending thoracic Re sults for this INFANT BABYSITTER aortic aneurysm (H) procedur e are in the results section. XR CHEST PORT 1 VIEW STAT 11/05/2018 6:40 AM R esults for this INFANT BABYSITTER procedure are i n the results section. EKG CARDIAC - HIM 09/24/2018 12:00 AM SCAN INFANT BABYSITTER documented in this encounter Results (ABNORMAL) CBC with platelets differential (11/09/2018 7:41 AM [facility]) Component Value Ref Test Analysis Performed At [facility] Range Method Time Signature WBC 9.3 4.0 - 11/09/2018 [facility] 11.0 8:06 [address] [place] [id number] RBC Count 3.55 (L) 4.4 - 11/09/2018 [facility] 5.9 8:06 AM [place] [id number] Hemoglobin 11.3 (L) 13.3 - 11/09/2018 [facility] 17.7 8:06 AM [facility] Hematocrit 33.7 (L) 40.0 - 11/09/2018 [facility] 53.0 % 8:06 AM [facility] MCV 95 78 - 100 11/09/2018 [facility] fl 8:06 AM [facility] MCH 31.8 26.5 - 11/09/2018 [facility] 33.0 pg 8:06 AM [facility] MCHC 33.5 31.5 - 11/09/2018 [facility] 36.5 8:06 AM [facility] RDW 13.9 10.0 - 11/09/2018 [facility] 15.0 % 8:06 AM [facility] Platelet Count 83 (L) 150 - 11/09/2018 [facility] 450 8:[address] Diff Method Manual 11/09/2018 [facility] Differential 8:31 AM [facility] % Neutrophils 85.0 % 11/09/2018 [facility] 8:31 AM [facility] % Lymphocytes 6.0 % 11/09/2018 [facility] 8:31 AM [facility] % Monocytes 7.0 % 11/09/2018 [facility] 8:31 AM [facility] % Eosinophils 2.0 % 11/09/2018 [facility] 8:31 AM [facility] % Basophils 0.0 % 11/09/2018 [facility] 8:31 AM [facility] Absolute 7.9 1.6 - 11/09/2018 [facility] Neutrophil 8.3 8:[address] Absolute 0.6 (L) 0.8 - 11/09/2018 [facility] Lymphocytes 5.3 8:[address] Absolute 0.7 0.0 - 11/09/2018 [facility] Monocytes 1.3 8:[address] Absolute 0.2 0.0 - 11/09/2018 [facility] Eosinophils 0.7 8:[address] Absolute 0.0 0.0 - 11/09/2018 [facility] Basophils 0.2 8:[address] RBC Morphology Consistent with 11/09/2018 [facility] reported results 8:31 AM [facility] Platelet Automated count 11/09/2018 [facility] Estimate confirmed. 8:31 AM [facility] morphology is normal. Specimen Anatomical Collection Method Collection Time Receive d Time (Source) Location / / Volume Laterality Blood specimen 11/09/2018 7:41 AM 019 7:51 (specimen) INFANT BABYSITTER AM INFANT BABYSITTER Dimas Chapman MD LAB - BLOOD ORDERABLES Performing Organization Address City/State/ZIP Code Phon e Number M [facility] [address] [address] [phone] [facility] [address] [address], [facility] [phone] (ABNORMAL) Comprehensive metabolic panel (11/09/2018 7:41 AM [facility]) P athologist Signature Sodium 144 133 - 144 11/09/2018 [place] mmol/L 8:11 AM [facility] Potassium 4.0 3.4 - 5.3 11/09/2018 [place] mmol/L 8:11 AM [facility] Chloride 113 (H) 94 - 109 11/09/2018 [place] mmol/L 8:11 AM [facility] Carbon Dioxide 22 20 - 32 11/09/2018 [place] mmol/L 8:17 AM [facility] Anion Gap 9 3 - 14 11/09/2018 [place] mmol/L 8:17 AM [facility] Glucose 94 70 - 99 11/09/2018 [place] mg/dL 8:17 AM [facility] Urea Nitrogen 21 7 - 30 11/09/2018 [place] mg/dL 8:17 AM [facility] Creatinine 1.24 0.66 - 11/09/2018 [place] 1.25 mg/dL 8:17 AM [facility] GFR Estimate 56 (L) >60 11/09/2018 [place] mL/min/{1. 8:17 AM [facility] 73_m2} HOSPITAL Comment: Non GFR Calc Starting 10/05/2018, serum creatinine ba sed estimated GFR (eGFR) will be calculated using the Chronic Kidney Dise [facility] Epidemiology Collaboration (CKD-EPI) equation. GFR Estimate If 65 >60 mL/min/{1.73_m2} 11/09/2018 8: 17 AM [facility] Comment: GFR Calc Starting 10/05/2018, serum creatinine ba sed estimated GFR (eGFR) will be calculated using the Chronic Kidney Dise [facility] Epidemiology Collaboration (CKD-EPI) equation. Calcium 8.4 (L) 8.5 - 10.1 11/09/2018 8:17 AM [facility] mg/dL [facility] Bilirubin Total 1.3 0.2 - 1.3 mg/dL 11/09/2018 8:19 AM [facility] Albumin 2.4 (L) 3.4 - 5.0 g/dL 11/09/2018 8:19 AM [facility] Protein Total 6.2 (L) 6.8 - 8.8 g/dL 11/09/2018 8:19 AM [facility] Alkaline Phosphatase 72 40 - 150 U/L 11/09/2018 8:19 AM [facility] ALT 17 0 - 70 U/L 11/09/2018 8:19 AM [facility] AST 15 0 - 45 U/L 11/09/2018 8:19 AM [facility] Specimen Anatomical Collection Method Collection Time Receive d Time (Source) Location / / Volume Laterality Blood specimen 11/09/2018 7:41 AM 019 7:51 (specimen) INFANT BABYSITTER AM [facility] Dimas Chapman MD LAB - BLOOD ORDERABLES Performing Organization Address City/State/ZIP Code Phon e Number M [facility] [address] [address] [phone] [facility] [address] [place] [address], [place] [phone] Magnesium Level scheduled every Thu Wed Thu (11/08/2018 3:40 AM INFANT BABYSITTER) P athologist Signature Magnesium 1.7 1.6 - 2.3 11/08/2018 [facility] mg/dL 4:06 AM [facility] Specimen Anatomical Collection Method Collection Time Receive d Time (Source) Location / / Volume Laterality Blood specimen 11/08/2018 3:40 AM 019 3:46 (specimen) INFANT BABYSITTER AM INFANT BABYSITTER Dimas Chapman MD LAB - BLOOD ORDERABLES Performing Organization Address City/State/ZIP Code Phon e Number M [facility] [address] [place] [address] [phone] [facility] [address] [place] [address], [place] [phone] (ABNORMAL) Comprehensive metabolic panel (11/08/2018 3:40 AM INFANT BABYSITTER) Analysis Performed At Patho logist Time Signature Sodium 142 133 - 144 11/08/2018 [facility] mmol/L 3:58 AM [facility] Potassium 4.2 3.4 - 5.3 11/08/2018 [facility] mmol/L 3:58 AM [facility] Chloride 111 (H) 94 - 109 11/08/2018 [facility] mmol/L 3:58 AM [facility] Carbon Dioxide 22 20 - 32 11/08/2018 [facility] mmol/L 4:04 AM [facility] Anion Gap 9 3 - 14 11/08/2018 [facility] mmol/L 4:04 AM [facility] Glucose 164 (H) 70 - 99 11/08/2018 [facility] mg/dL 4:04 AM [facility] Urea Nitrogen 20 7 - 30 11/08/2018 [facility] mg/dL 4:04 AM [facility] Creatinine 1.29 (H) 0.66 - 11/08/2018 [facility] 1.25 mg/dL 4:04 AM [facility] GFR Estimate 53 (L) >60 11/08/2018 [facility] mL/min/{1. 4:04 AM [facility] 73_m2} [facility]OSP[facility] Comment: Non GFR Calc Starting 10/05/2018, serum creatinine ba sed estimated GFR (eGFR) will be calculated using the Chronic Kidney Dise [facility] Epidemiology Collaboration (CKD-EPI) equation. GFR Estimate If 62 >60 mL/min/{1.73_m2} 11/08/2018 4: 04 AM [facility] Comment: GFR Calc Starting 10/05/2018, serum creatinine ba sed estimated GFR (eGFR) will be calculated using the Chronic Kidney Dise [facility] Epidemiology Collaboration (CKD-EPI) equation. Calcium 8.2 (L) 8.5 - 10.1 11/08/2018 4:04 AM [facility] mg/dL [facility] Bilirubin Total 1.1 0.2 - 1.3 mg/dL 11/08/2018 4:06 AM [facility] Albumin 2.6 (L) 3.4 - 5.0 g/dL 11/08/2018 4:06 AM [facility] Protein Total 6.0 (L) 6.8 - 8.8 g/dL 11/08/2018 4:06 AM [facility] Alkaline Phosphatase 62 40 - 150 U/L 11/08/2018 4:06 AM [facility] ALT 18 0 - 70 U/L 11/08/2018 4:06 AM [facility] AST 19 0 - 45 U/L 11/08/2018 4:06 AM [facility] Specimen Anatomical Collection Method Collection Time Receive d Time (Source) Location / / Volume Laterality Blood specimen 11/08/2018 3:40 AM 019 3:46 (specimen) INFANT BABYSITTER AM INFANT BABYSITTER Gurwinder Godoy MD LAB - BLOOD ORDERABLES Performing Organization Address City/State/ZIP Code Phon e Number M [facility] [address] [address] [facility] [address] [address], U [phone] (ABNORMAL) CBC (AM Draw) (11/08/2018 3:40 AM INFANT BABYSITTER) Analysis Performed At Patho logist Time Signature WBC 11.2 (H) 4.0 - 11.0 11/08/2018 [facility] 10e9/L 3:50 AM [facility] RBC Count 3.62 (L) 4.4 - 5.9 11/08/2018 [facility] 10e12/L 3:50 AM [facility] Hemoglobin 11.6 (L) 13.3 - 11/08/2018 [facility] 17.7 g/dL 3:50 AM [facility] Hematocrit 34.5 (L) 40.0 - 11/08/2018 [facility] 53.0 % 3:50 AM [facility] MCV 95 78 - 100 11/08/2018 [facility] fl 3:50 AM [facility] MCH 32.0 26.5 - 11/08/2018 [facility] 33.0 pg 3:50 AM [facility] MCHC 33.6 31.5 - 11/08/2018 [facility] 36.5 g/dL 3:50 AM [facility] RDW 13.9 10.0 - 11/08/2018 [facility] 15.0 % 3:50 AM [facility] Platelet Count 82 (L) 150 - 450 11/08/2018 [facility] 10e9/L 3:50 AM [facility] Specimen Anatomical Collection Method Collection Time Receive d Time (Source) Location / / Volume Laterality Blood specimen 11/08/2018 3:40 AM 019 3:46 (specimen) INFANT BABYSITTER AM INFANT BABYSITTER Gurwinder Godoy MD LAB - BLOOD ORDERABLES Performing Organization Address City/State/ZIP Code Phon e Number M [facility] [address] [address] [phone] [facility] [address] [address], U [phone] (ABNORMAL) CBC with platelets (11/07/2018 3:00 PM INFANT BABYSITTER) Analysis Performed At Patho logist Time Signature WBC 11.1 (H) 4.0 - 11.0 11/07/2018 [facility] 10e9/L 3:08 PM [facility] RBC Count 3.74 (L) 4.4 - 5.9 11/07/2018 [facility] 10e12/L 3:08 PM [facility] Hemoglobin 11.9 (L) 13.3 - 11/07/2018 [facility] 17.7 g/dL 3:08 PM [facility] Hematocrit 35.4 (L) 40.0 - 11/07/2018 [facility] 53.0 % 3:08 PM [facility] MCV 95 78 - 100 11/07/2018 [facility] fl 3:08 PM [facility] MCH 31.8 26.5 - 11/07/2018 [facility] 33.0 pg 3:08 PM [facility] MCHC 33.6 31.5 - 11/07/2018 [facility] 36.5 g/dL 3:08 PM [facility] RDW 14.1 10.0 - 11/07/2018 [facility] 15.0 % 3:08 PM [facility] Platelet Count 87 (L) 150 - 450 11/07/2018 [facility] 10[facility]9/L 3:08 PM [facility] Specimen Anatomical Collection Method Collection Time Receive d Time (Source) Location / / Volume Laterality Blood specimen 11/07/2018 3:00 PM 019 3:05 (specimen) INFANT BABYSITTER PM INFANT BABYSITTER Bart Feliciano MD LAB - BLOOD ORDERABLES Performing Organization Address City/State/ZIP Code Phon e Number M [facility] [address] [address] [place] [id number] [place] [address] [address], [facility] [phone] Magnesium (11/07/2018 9:50 AM INFANT BABYSITTER) P athologist Signature Magnesium 1.6 1.6 - 2.3 11/07/2018 [facility] mg/dL 11:12 AM [facility] Specimen Anatomical Collection Method Collection Time Receive d Time (Source) Location / / Volume Laterality 11/07/2018 9:50 AM 9 INFANT BABYSITTER 10:04 AM INFANT BABYSITTER Gurwinder Godoy MD LAB - BLOOD ORDERABLES Performing Organization Address City/State/ZIP Code Phon e Number M [facility] [address] [address] [place] [address] [place] [address], [place] [phone] (ABNORMAL) CBC with platelets differential (11/07/2018 9:50 AM [facility]) [facility] Method Time Signature WBC 10.4 4.0 - 11/07/2018 [facility] 11.0 10:13 AM [facility] 10e9/L [facility] RBC Count 3.63 (L) 4.4 - 5.9 11/07/2018 [facility] 10e12/L 10:13 AM [facility] Hemoglobin 11.5 (L) 13.3 - 11/07/2018 [facility] 17.7 g/dL 10:13 AM [facility] Hematocrit 34.3 (L) 40.0 - 11/07/2018 [facility] 53.0 % 10:13 AM [facility] MCV 95 78 - 100 11/07/2018 [facility] fl 10:13 AM [facility] MCH 31.7 26.5 - 11/07/2018 [facility] 33.0 pg 10:13 AM [facility] MCHC 33.5 31.5 - 11/07/2018 [facility] 36.5 g/dL 10:13 AM [facility] RDW 14.0 10.0 - 11/07/2018 [facility] 15.0 % 10:13 AM [facility] Platelet Count 82 (L) 150 - 450 11/07/2018 [facility] 10e9/L 10:37 AM [facility] Diff Method Automated 11/07/2018 [facility] Method 10:37 AM [facility] % Neutrophils 78.8 % 11/07/2018 [facility] 10:37 AM [facility] % Lymphocytes 6.2 % 11/07/2018 [facility] 10:37 AM [facility] % Monocytes 14.7 % 11/07/2018 [facility] 10:37 AM [facility] % Eosinophils 0.2 % 11/07/2018 [facility] 10:37 AM [facility] % Basophils 0.0 % 11/07/2018 [facility] 10:37 AM [facility] % Immature 0.1 % 11/07/2018 [facility] Granulocytes 10:37 AM [facility] Nucleated RBCs 0 0 /100 11/07/2018 [facility] 10:37 AM [facility] Absolute 8.2 1.6 - 8.3 11/07/2018 [facility] Neutrophil 10e9/L 10:37 AM [facility] Absolute 0.6 (L) 0.8 - 5.3 11/07/2018 [facility] Lymphocytes 10e9/L 10:37 AM [facility] Absolute 1.5 (H) 0.0 - 1.3 11/07/2018 [facility] Monocytes 10e9/L 10:37 AM [facility] Absolute 0.0 0.0 - 0.7 11/07/2018 [facility] Eosinophils 10e9/L 10:37 AM [facility] Absolute 0.0 0.0 - 0.2 11/07/2018 [facility] Basophils 10e9/L 10:37 AM [facility] Abs Immature 0.0 0 - 0.4 11/07/2018 [facility] Granulocytes 10e9/L 10:37 AM [facility] Absolute 0.0 11/07/2018 [facility] Nucleated RBC 10:37 AM [facility] Ovalocytes Slight 11/07/2018 [facility] 10:37 AM [facility] Platelet Automated 11/07/2018 [facility] Estimate count 10:37 AM [facility] confirmed. [facility] Platelet morphology is normal. Specimen Anatomical Collection Method Collection Time Receive d Time (Source) Location / / Volume Laterality Blood specimen 11/07/2018 9:50 AM 019 (specimen) INFANT BABYSITTER 10:04 AM INFANT BABYSITTER Gurwinder Godoy MD LAB - BLOOD ORDERABLES Performing Organization Address City/State/ZIP Code Phon e Number M [facility] [address] [address] [facility] [address] [place] [address], U [phone] (ABNORMAL) Basic metabolic panel (11/07/2018 9:50 AM INFANT BABYSITTER) Analysis Performed At Patho logist Time Signature Sodium 147 (H) 133 - 144 11/07/2018 [facility] mmol/L 10:16 AM [facility] Potassium 4.1 3.4 - 5.3 11/07/2018 [facility] mmol/L 10:16 AM [facility] Chloride 117 (H) 94 - 109 11/07/2018 [facility] mmol/L 10:16 AM [facility] Carbon Dioxide 20 20 - 32 11/07/2018 [facility] mmol/L 10:23 AM [facility] Anion Gap 10 3 - 14 11/07/2018 [facility] mmol/L 10:23 AM [facility] Glucose 108 (H) 70 - 99 11/07/2018 [facility] mg/dL 10:23 AM [facility] Urea Nitrogen 23 7 - 30 11/07/2018 [facility] mg/dL 10:23 AM [facility] Creatinine 1.47 (H) 0.66 - 11/07/2018 [facility] 1.25 mg/dL 10:23 AM [facility] GFR Estimate 46 (L) >60 11/07/2018 [facility] mL/min/{1. 10:23 AM [facility] 73_m2} [facility]OSPITAL Comment: Non GFR Calc Starting 10/05/2018, serum creatinine ba sed estimated GFR (eGFR) will be calculated using the Chronic Kidney Dise [facility] Epidemiology Collaboration (CKD-EPI) equation. GFR Estimate If 53 (L) >60 mL/min/{1.73_m2} 11/07/2018 10 :23 AM [facility] Black [facility] Comment: GFR Calc Starting 10/05/2018, serum creatinine ba sed estimated GFR (eGFR) will be calculated using the Chronic Kidney Dise [facility] Epidemiology Collaboration (CKD-EPI) equation. Calcium 8.2 (L) 8.5 - 10.1 mg/dL 11/07/2018 10:23 AM [facility] Specimen Anatomical Collection Method Collection Time Receive d Time (Source) Location / / Volume Laterality Blood specimen 11/07/2018 9:50 AM 019 (specimen) INFANT BABYSITTER 10:04 AM INFANT BABYSITTER Gurwinder Godoy MD LAB - BLOOD ORDERABLES Performing Organization Address City/State/ZIP Code Phon e Number M [facility] [address] [address] [facility] [address] [address], [place] [phone] (ABNORMAL) Glucose by meter (11/07/2018 7:44 AM INFANT BABYSITTER) P athologist Signature Glucose 112 (H) 70 - 99 11/07/2018 [facility] mg/dL 7:56 AM INFANT BABYSITTER TEST, GLUCOSE Specimen Anatomical Collection Method Collection Time Receive d Time (Source) Location / / Volume Laterality 11/07/2018 7:44 AM 9 7:56 INFANT BABYSITTER AM INFANT BABYSITTER Juan Lewis MD LAB - BEFOUZIA POCT Performing Organization Address [facility]/ZIP Code Phon e Number FV POINT OF CARE TEST, GLUCOSE POINT OF CARE TEST, GLUCOSE (ABNORMAL) Glucose by meter (11/07/2018 3:49 AM INFANT BABYSITTER) P athologist Signature Glucose 105 (H) 70 - 99 11/07/2018 [facility] mg/dL 4:01 AM INFANT BABYSITTER TEST, GLUCOSE Specimen Anatomical Collection Method Collection Time Receive d Time (Source) Location / / Volume Laterality 11/07/2018 3:49 AM 9 4:01 INFANT BABYSITTER AM INFANT BABYSITTER Juan YUAN - CAROLYN POCT Performing Organization Address City/[facility]/ZIP Code Phon e Number [facility] POINT OF CARE TEST, GLUCOSE POINT OF CARE TEST, GLUCOSE (ABNORMAL) Glucose by meter (11/07/2018 12:08 AM INFANT BABYSITTER) P athologist Signature Glucose 119 (H) 70 - 99 11/07/2018 [facility] mg/dL 12:19 AM INFANT BABYSITTER TEST, GLUCOSE Specimen Anatomical Collection Method Collection Time Receive d Time (Source) Location / / Volume Laterality 11/07/2018 12:08 11/07/2018 AM INFANT BABYSITTER 12:19 AM INFANT BABYSITTER Juan YUAN - BEFOUZIA POCT Performing Organization Address City/[facility]/ZIP Code Phon e Number [facility] POINT OF CARE TEST, GLUCOSE POINT OF CARE TEST, GLUCOSE (ABNORMAL) Glucose by meter (11/06/2018 7:53 PM INFANT BABYSITTER) P athologist Signature Glucose 116 (H) 70 - 99 11/06/2018 [facility] mg/dL 8:04 PM INFANT BABYSITTER TEST, GLUCOSE Specimen Anatomical Collection Method Collection Time Receive d Time (Source) Location / / Volume Laterality 11/06/2018 7:53 PM 9 8:04 INFANT BABYSITTER PM INFANT BABYSITTER Juan Elijah Debbie MD LAB - BEAKER POCT Performing Organization Address City/State/ZIP Code Phon e Number [facility] POINT OF CARE TEST, GLUCOSE POINT OF CARE TEST, GLUCOSE (ABNORMAL) Glucose by meter (11/06/2018 11:02 AM INFANT BABYSITTER) P athologist Signature Glucose 109 (H) 70 - 99 11/06/2018 [facility] mg/dL 11:13 AM INFANT BABYSITTER TEST, GLUCOSE Specimen Anatomical Collection Method Collection Time Receive d Time (Source) Location / / Volume Laterality 11/06/2018 11:02 11/06/2018 AM INFANT BABYSITTER 11:13 AM INFANT BABYSITTER uJan Lewis MD LAB - BEAKER POCT Performing Organization Address City/State/ZIP Code Phon e Number [facility] POINT OF CARE TEST, GLUCOSE POINT OF CARE TEST, GLUCOSE (ABNORMAL) Glucose by meter (11/06/2018 7:38 AM INFANT BABYSITTER) P athologist Signature Glucose 104 (H) 70 - 99 11/06/2018 [facility] mg/dL 7:50 AM INFANT BABYSITTER TEST, GLUCOSE Specimen Anatomical Collection Method Collection Time Receive d Time (Source) Location / / Volume Laterality 11/06/2018 7:38 AM 9 7:50 INFANT BABYSITTER AM INFANT BABYSITTER Juan YUAN - BEAKER POCT Performing Organization Address City/[facility]/ZIP Code Phon e Number [facility] POINT OF CARE TEST, GLUCOSE POINT OF CARE TEST, GLUCOSE Lactic acid whole blood (11/06/2018 4:15 AM INFANT BABYSITTER) P athologist Signature Lactic Acid 1.4 0.7 - 2.0 11/06/2018 [facility] mmol/L 4:40 AM INFANT BABYSITTER [facility] Specimen Anatomical Collection Method Collection Time Receive d Time (Source) Location / / Volume Laterality Blood specimen 11/06/2018 4:15 AM 019 4:25 (specimen) INFANT BABYSITTER AM INFANT BABYSITTER Bessy Mccray MD LAB - BLOOD ORDERABLES Performing Organization Address City/[facility]/ZIP Code Phon e Number M [facility] [address] [address] [facility] [address] [address], [facility] [phone] (ABNORMAL) Basic metabolic panel (11/06/2018 4:15 AM INFANT BABYSITTER) Analysis Performed At Patho logist Time Signature Sodium 142 133 - 144 11/06/2018 [facility] mmol/L 4:49 AM [facility] Potassium 4.4 3.4 - 5.3 11/06/2018 [facility] mmol/L 4:49 AM [facility] Chloride 113 (H) 94 - 109 11/06/2018 [facility] mmol/L 4:49 AM [facility] Carbon Dioxide 21 20 - 32 11/06/2018 [facility] mmol/L 4:54 AM [facility] Anion Gap 8 3 - 14 11/06/2018 [facility] mmol/L 4:54 AM [facility] Glucose 115 (H) 70 - 99 11/06/2018 [facility] mg/dL 4:54 AM [facility] Urea Nitrogen 27 7 - 30 11/06/2018 [facility] mg/dL 4:54 AM [facility] Creatinine 1.57 (H) 0.66 - 11/06/2018 [facility] 1.25 mg/dL 4:54 AM [facility] GFR Estimate 42 (L) >60 11/06/2018 [facility] mL/min/{1. 4:54 AM [facility] 73_m2} [facility] Comment: Non GFR Calc Starting 10/05/2018, serum creatinine ba sed estimated GFR (eGFR) will be calculated using the Chronic Kidney Dise [facility] Epidemiology Collaboration (CKD-EPI) equation. GFR Estimate If 49 (L) >60 mL/min/{1.73_m2} 11/06/2018 4: 54 AM [place] Black [facility] Comment: GFR Calc Starting 10/05/2018, serum creatinine ba sed estimated GFR (eGFR) will be calculated using the Chronic Kidney Dise [facility] Epidemiology Collaboration (CKD-EPI) equation. Calcium 7.8 (L) 8.5 - 10.1 mg/dL 11/06/2018 4:54 AM [facility] Specimen Anatomical Collection Method Collection Time Receive d Time (Source) Location / / Volume Laterality Blood specimen 11/06/2018 4:15 AM 019 4:25 (specimen) INFANT BABYSITTER AM [facility] Bessy Mccray MD LAB - BLOOD ORDERABLES Performing Organization Address City/State/ZIP Code Phon e Number M [facility] [address] [place] [address] [facility] [address] [place] [address], [place] [phone] (ABNORMAL) CBC with platelets (11/06/2018 4:15 AM INFANT BABYSITTER) Analysis Performed At Patho logist Time Signature WBC 12.9 (H) 4.0 - 11.0 11/06/2018 [facility] 10e9/L 4:45 AM [facility] RBC Count 3.93 (L) 4.4 - 5.9 11/06/2018 [facility] 10e12/L 4:45 AM [facility] Hemoglobin 12.5 (L) 13.3 - 11/06/2018 [facility] 17.7 g/dL 4:45 AM [facility] Hematocrit 36.8 (L) 40.0 - 11/06/2018 [facility] 53.0 % 4:45 AM [facility] MCV 94 78 - 100 11/06/2018 [facility] fl 4:45 AM [facility] MCH 31.8 26.5 - 11/06/2018 [facility] 33.0 pg 4:45 AM [facility] MCHC 34.0 31.5 - 11/06/2018 [facility] 36.5 g/dL 4:45 AM [facility] RDW 13.2 10.0 - 11/06/2018 [facility] 15.0 % 4:45 AM [facility] Platelet Count 153 150 - 450 11/06/2018 [facility] 10e9/L 4:45 AM [facility] Specimen Anatomical Collection Method Collection Time Receive d Time (Source) Location / / Volume Laterality Blood specimen 11/06/2018 4:15 AM 019 4:25 (specimen) INFANT BABYSITTER AM INFANT BABYSITTER Bessy Mccray MD LAB - BLOOD ORDERABLES Performing Organization Address City/State/ZIP Code Phon e Number M [facility] [address] [place] [address] [facility] [address] [address], [place] [phone] (ABNORMAL) Glucose by meter (11/06/2018 1:12 AM INFANT BABYSITTER) P athologist Signature Glucose 126 (H) 70 - 99 11/06/2018 [facility] mg/dL 1:24 AM INFANT BABYSITTER TEST, GLUCOSE Specimen Anatomical Collection Method Collection Time Receive d Time (Source) Location / / Volume Laterality 11/06/2018 1:12 AM 9 1:24 INFANT BABYSITTER AM INFANT BABYSITTER Juan Lewis MD LAB - BEAKER POCT Performing Organization Address City/State/ZIP [facility] Phon e Number FV POINT OF CARE TEST, GLUCOSE POINT OF CARE TEST, GLUCOSE Methicillin Resist/Sens S. aureus PCR (11/05/2018 11:41 PM INFANT BABYSITTER) [facility] gist Method Time Signature Specimen Nares 11/05/2018 [facility] Description 11:45 PM INFANT BABYSITTER [facility] Methicillin Negative NEG^Negat 11/06/2018 [facility] Resist/Sens S. shin 2:36 AM [facility] MEDICAL aureus PCR [facility] Comment: MRSA Negative: SA Negative ??MRSA and St aphylococcus aureus target DNA not detected, presumed negative for MRSA and SA colonization or the number of bacteria present may be below the limit of detection for the assay. FDA approved assay performed using [employer] en[employer](R) real-time PCR. Specimen (Source) Anatomical Collection Method Collection Time Re ceived Time Location / / Volume Laterality Nasal structure 11/05/2018 11:41 11/06/19 19 (body structure) PM INFANT BABYSITTER Bessy Mccray MD LAB - MICRO GENERAL ORDERABL ES Performing Organization Address City/[facility] Code Phon e Number [facility] [address] [place] [address] [facility] [address] [place] [address], U [phone] (ABNORMAL) Glucose by meter (11/05/2018 8:16 PM INFANT BABYSITTER) P athologist Signature Glucose 128 (H) 70 - 99 11/05/2018 [facility] mg/dL 8:28 PM INFANT BABYSITTER TEST, GLUCOSE Specimen Anatomical Collection Method Collection Time Receive d Time (Source) Location / / Volume Laterality 11/05/2018 8:16 PM 9 8:28 INFANT BABYSITTER PM INFANT BABYSITTER Juan Lewis MD LAB - BEFOUZIA POCT Performing Organization Address City/State/ZIP Code Phon e Number FV POINT OF CARE TEST, GLUCOSE POINT OF CARE TEST, GLUCOSE (ABNORMAL) Glucose by meter (11/05/2018 4:39 PM INFANT BABYSITTER) P athologist Signature Glucose 124 (H) 70 - 99 11/05/2018 [facility] mg/dL 4:50 PM INFANT BABYSITTER TEST, GLUCOSE Specimen Anatomical Collection Method Collection Time Receive d Time (Source) Location / / Volume Laterality 11/05/2018 4:39 PM 9 4:50 INFANT BABYSITTER PM INFANT BABYSITTER Juan Lewis MD LAB - BEFOUZIA POCT Performing Organization Address City/State/ZIP Code Phon e Number [facility]V POINT OF CARE TEST, GLUCOSE POINT OF CARE TEST, GLUCOSE (ABNORMAL) CBC with platelets (11/05/2018 4:35 PM INFANT BABYSITTER) Analysis Performed At Patho logist Time Signature WBC 7.3 4.0 - 11.0 11/05/2018 [facility] 10e9/L 5:22 PM [facility] RBC Count 4.35 (L) 4.4 - 5.9 11/05/2018 [facility] 10e12/L 5:22 PM [facility] Hemoglobin 13.7 13.3 - 11/05/2018 [facility] 17.7 g/dL 5:22 PM [facility] Hematocrit 40.9 40.0 - 11/05/2018 [facility] 53.0 % 5:22 PM [facility] MCV 94 78 - 100 11/05/2018 [facility] fl 5:22 PM [facility] MCH 31.5 26.5 - 11/05/2018 [facility] 33.0 pg 5:22 PM [facility] MCHC 33.5 31.5 - 11/05/2018 [facility] 36.5 g/dL 5:22 PM [facility] RDW 13.1 10.0 - 11/05/2018 [facility] 15.0 % 5:22 PM [facility] Platelet Count 108 (L) 150 - 450 11/05/2018 [facility] 10e9/L 5:22 PM [facility] Specimen Anatomical Collection Method Collection Time Receive d Time (Source) Location / / Volume Laterality Blood specimen 11/05/2018 4:35 PM 019 5:17 (specimen) INFANT BABYSITTER PM INFANT BABYSITTER Bessy Mccray MD LAB - BLOOD ORDERABLES Performing Organization Address City/State/ZIP Code Phon e Number M [facility] [address] [place] [phone] [facility] [address] [place] [address], [place] [phone] INR (11/05/2018 4:35 PM INFANT BABYSITTER) P athologist Signature INR 1.03 0.86 - 1.14 11/05/2018 [place] 5:33 PM [facility] Specimen Anatomical Collection Method Collection Time Receive d Time (Source) Location / / Volume Laterality Blood specimen 11/05/2018 4:35 PM 019 5:17 (specimen) INFANT BABYSITTER PM INFANT BABYSITTER Bessy Mccray MD LAB - BLOOD ORDERABLES Performing Organization Address City/State/ZIP Code Phon e Number M [facility] [address] [place] [address] [phone] [facility] [address] [place] [address], [place] [phone] Lactic acid whole blood (11/05/2018 4:35 PM INFANT BABYSITTER) P athologist Signature Lactic Acid 1.0 0.7 - 2.0 11/05/2018 [place] mmol/L 5:57 PM INFANT BABYSITTER [facility] Specimen Anatomical Collection Method Collection Time Receive d Time (Source) Location / / Volume Laterality Blood specimen 11/05/2018 4:35 PM 019 5:18 (specimen) INFANT BABYSITTER PM INFANT BABYSITTER Bessy Mccray MD LAB - BLOOD ORDERABLES Performing Organization Address City/State/ZIP Code Phon e Number M [facility] [address] [place] [address] [phone] [facility] [address] [place] [address], [place] [phone] (ABNORMAL) Basic metabolic panel (11/05/2018 4:35 PM INFANT BABYSITTER) Analysis Performed At Patho logist Time Signature Sodium 143 133 - 144 11/05/2018 [place] mmol/L 5:38 PM [facility] Potassium 4.3 3.4 - 5.3 11/05/2018 [facility] mmol/L 5:38 PM [facility] Chloride 113 (H) 94 - 109 11/05/2018 [facility] mmol/L 5:38 PM [facility] Carbon Dioxide 22 20 - 32 11/05/2018 [facility] mmol/L 5:43 PM [place] [facility] Anion Gap 8 3 - 14 11/05/2018 [facility] mmol/L 5:43 PM [facility] Glucose 121 (H) 70 - 99 11/05/2018 [facility] mg/dL 5:43 PM [facility] Urea Nitrogen 24 7 - 30 11/05/2018 [facility] mg/dL 5:43 PM [facility] Creatinine 1.30 (H) 0.66 - 11/05/2018 [facility] 1.25 mg/dL 5:43 PM [facility] GFR Estimate 53 (L) >60 11/05/2018 [facility] mL/min/{1. 5:43 PM [facility] 73_m2} [facility] Comment: Non GFR Calc Starting 10/05/2018, serum creatinine ba sed estimated GFR (eGFR) will be calculated using the Chronic Kidney Dise [facility] Epidemiology Collaboration (CKD-EPI) equation. GFR Estimate If 61 >60 mL/min/{1.73_m2} 11/05/2018 5: 43 PM [facility] Comment: GFR Calc Starting 10/05/2018, serum creatinine ba sed estimated GFR (eGFR) will be calculated using the Chronic Kidney Dise [facility] Epidemiology Collaboration (CKD-EPI) equation. Calcium 8.6 8.5 - 10.1 mg/dL 11/05/2018 5:43 PM [facility] Specimen Anatomical Collection Method Collection Time Receive d Time (Source) Location / / Volume Laterality Blood specimen 11/05/2018 4:35 PM 019 5:17 (specimen) INFANT BABYSITTER PM [facility] Bessy Mccray MD LAB - BLOOD ORDERABLES Performing Organization Address City/State/ZIP Code Phon e Number M [facility] [address] [place] [address] [facility] [address] [place] [address], U [phone] IR Thoracic Endovascular Stent Graft (11/05/2018 12:09 PM INFANT BABYSITTER) Anatomical Region Laterality Modality Chest Radio Fluoroscopy Specimen (Source) Anatomical Location Collection Method / Collectio n Time Received Time / Laterality Volume Impressions 11/06/2018 3:33 PM INFANT BABYSITTER IMPRESSION: Successful deployment in 2 components for [...] KANNAN MORSE MD Narrative 11/06/2018 3:33 PM INFANT BABYSITTER INTERVENTIONAL RADIOLOGY THORACIC ENDOVASCULAR STENT GRAFT ??11/05/2018 [...] Plan is for endovascular repair with Med [employer] Valiant Navion stent graft system. TECHNIQUE: Please [...] tion. Over a series of maneuvers, 6 Kazakh vascular sheath was placed. From left groin [...] tion. Over a series of maneuvers, 6 Kazakh vascular sheath was placed. From left groin [...] Drain Placement w Fluoro (11/05/2018 9:10 AM INFANT BABYSITTER) Anatomical Region Laterality Modality Spine Radio Fluoroscopy Specimen (Source) Anatomical Location Collection Method / Collectio n Time Received Time / Laterality Volume Narrative 11/05/2018 9:19 AM INFANT BABYSITTER [facility] RADIOLOGY INTERVENTIONAL NEURORADIOLOGY PROCEDURAL NOTE FLUOROSCOPICALLY [...] codes included for physician referen ce only: [id number] MISSAEL GARCIA MD Procedure Note Missael Garcia [...] codes included for physician referen ce only: 80782/99157 MISSAEL GARCIA MD Butch Brown MD IMG IR ORDERABLES EKG 12-lead, tracing only (11/05/2018 6:58 AM INFANT BABYSITTER) [facility] gist Method Time Signature Interpretation ECG Click View RADIOLOGY Image link RESULTS to view waveform and result Specimen (Source) Anatomical Collection Method Collection Time Re ceived Time Location / / Volume Laterality 11/05/2018 6:58 AM INFANT BABYSITTER Juan Lewis MD ECG ORDERABLES Performing Organization Address City/State/ZIP Code Phon e Number RADIOLOGY RESULTS Potassium (11/05/2018 6:55 AM INFANT BABYSITTER) P athologist Signature Potassium 4.3 3.4 - 5.3 11/05/2018 [place] mmol/L 7:15 AM [facility] Specimen Anatomical Collection Method Collection Time Receive d Time (Source) Location / / Volume Laterality Blood specimen 11/05/2018 6:55 AM 019 6:56 (specimen) INFANT BABYSITTER AM INFANT BABYSITTER Zakia Tobin MD LAB - BLOOD ORDERABLES Performing Organization Address City/State/ZIP Code Phon e Number M [facility] [address] [place] [address] [facility] [address] [place] [address], [place] [phone] Lipid panel (11/05/2018 6:55 AM INFANT BABYSITTER) Analysis Performed At Patho logist Time Signature Cholesterol 128 <200 mg/dL 11/05/2018 [facility] 7:20 AM [facility] Triglycerides 125 <150 mg/dL 11/05/2018 [facility] 7:21 AM [facility] HDL Cholesterol 59 >39 mg/dL 11/05/2018 [facility] 7:23 AM [facility] LDL Cholesterol 44 <100 mg/dL 11/05/2018 [facility] Calculated 7:23 AM [facility] Comment: Desirable: <100 mg/dl Non HDL Cholesterol 69 <130 mg/dL 11/05/2018 7:23 AM [facility] Specimen Anatomical Collection Method Collection Time Receive d Time (Source) Location / / Volume Laterality Blood specimen 11/05/2018 6:55 AM 019 6:56 (specimen) INFANT BABYSITTER AM INFANT BABYSITTER Juan Lewis MD LAB - BLOOD ORDERABLES Performing Organization Address City/State/ZIP Code Phon e Number M [facility] [address] [place] [address] [facility] [address] [place] [address], [place] [phone] Hemoglobin A1c (11/05/2018 6:55 AM INFANT BABYSITTER) athologist Signature Hemoglobin A1C 5.2 0 - 5.6 % 11/05/2018 [facility] 7:30 AM [facility] Comment: Normal <5.7% Prediabetes 5.7-6.4% ??Diab etes 6.5% or higher - adopted from ADA consensus guidelines. Specimen Anatomical Collection Method Collection Time Receive d Time (Source) Location / / Volume Laterality Blood specimen 11/05/2018 6:55 AM 019 6:56 (specimen) INFANT BABYSITTER AM INFANT BABYSITTER Juan Lewis MD LAB - BLOOD ORDERABLES Performing Organization Address City/State/ZIP Code Phon e Number M [facility] [address] [place] [address] [phone] [facility] [address] [place] [address], [place] [phone] (ABNORMAL) Creatinine (11/05/2018 6:55 AM [facility]) athologist Signature Creatinine 1.52 (H) 0.66 - 11/05/2018 [facility] 1.25 mg/dL 7:20 AM [facility] GFR Estimate 44 (L) >60 11/05/2018 [place] mL/min/{1. 7:20 AM [facility] 73_m2} [facility] Comment: Non GFR Calc Starting 10/05/2018, serum creatinine ba sed estimated GFR (eGFR) will be calculated using the Chronic Kidney Dise [facility] Epidemiology Collaboration (CKD-EPI) equation. GFR Estimate If 51 (L) >60 mL/min/{1.73_m2} 11/05/2018 7: 20 AM [place] Black [facility] Comment: GFR Calc Starting 10/05/2018, serum creatinine ba sed estimated GFR (eGFR) will be calculated using the Chronic Kidney Dise [facility] Epidemiology Collaboration (CKD-EPI) equation. Specimen Anatomical Collection Method Collection Time Receive d Time (Source) Location / / Volume Laterality Blood specimen 11/05/2018 6:55 AM 019 6:56 (specimen) INFANT BABYSITTER AM INFANT BABYSITTER Juan Lewis MD LAB - BLOOD ORDERABLES Performing Organization Address City/State/ZIP Code Phon e Number M [facility] [address] [place] [phone] [facility] [address] [place] [address], [facility] [phone] XR Chest Port 1 View (11/05/2018 6:40 AM INFANT BABYSITTER) Anatomical Region Laterality Modality Chest Digital Radiography Specimen (Source) Anatomical Location Collection Method / Collectio n Time Received Time / Laterality Volume Impressions 11/05/2018 6:58 AM INFANT BABYSITTER IMPRESSION: No acute abnormality. TOIR SANTIZO MD Narrative 11/05/2018 6:58 AM INFANT BABYSITTER XR CHEST PORTABLE 1 VIEW ?? 11/05/2018 [...] CARDIAC - HIM SCAN (09/24/2018 12:00 AM INFANT BABYSITTER) Specimen (Source) Anatomical Location Collection Method / [...] tablet 975 mg Given 11/08/2018 11:04 PM INFANT BABYSITTER 975 mg 975 mg, Oral, EVERY 6 HOURS PRN, mild pain, fever, Starting on Thu11/05/18 at 1827, Maximum acetaminophen dose from all sources = 75 mg/kg/day not to exceed 4 grams/day. Given 11/08/2018 12:37 PM INFANT BABYSITTER 975 mg Given 11/07/2018 11:03 AM INFANT BABYSITTER 975 mg alum & mag hydroxide-simethicone (MYLANTA Given 11/08/2018 2:48 AM INFANT BABYSITTER 30 mLs ES/MAALOX ES) suspension 30 mL 30 mL, Oral, EVERY 4 HOURS PRN, indigestion, Starting on Thu11/05/18 at 1510, Shake well. apixaban ANTICOAGULANT (ELIQUIS) tablet 2.5 Given 10/20 12:04 PM INFANT BABYSITTER 2.5 mg mg 2.5 mg, Oral, 2 TIMES DAILY, First dose on Thu11/09/18 at 1115 atorvastatin (LIPITOR) tablet 40 mg Given 11/08/2018 8:20 PM INFANT BABYSITTER 40 mg 40 mg, Oral, EVERY EVENING, First dose on Thu11/05/18 at 2000 Given 11/07/2018 7:49 PM INFANT BABYSITTER 40 mg Given 11/06/2018 9:16 PM INFANT BABYSITTER 40 mg calcium carbonate (TUMS) chewable tablet Given 11/07/2018 10 :34 PM INFANT BABYSITTER 1,000 mg 1,000 mg 1,000 mg, Oral, EVERY 2 HOURS PRN, heartburn, Starting on Thu11/06/18 at 0408, Do not give if calcium level greater than 10 mg/dL. Given 11/07/2018 12:05 AM INFANT BABYSITTER 1,000 mg Given 11/06/2018 4:50 AM INFANT BABYSITTER 1,000 mg clindamycin (CLEOCIN) infusion 900 New Bag 11/06/2018 2:05 AM INFANT BABYSITTER 900 mg 50 mL/hr mg Routine, 900 mg, Intravenous, EVERY 8 HOURS, First dose on Thu11/05/18 at 1800, For 2 doses, Indications: Perioperative Pharmacoprophylaxis, Post-procedure New Bag 11/05/2018 6:08 PM INFANT BABYSITTER 900 mg 50 mL/hr cyclobenzaprine (FLEXERIL) tablet 5-10 m g Given 11/08/2018 3:58 AM INFANT BABYSITTER 10 mg 5-10 mg, Oral, 3 TIMES DAILY PRN, muscle spasms, Starting on Thu11/07/18 at 1153 Given 11/07/2018 2:26 PM INFANT BABYSITTER 5 mg dextrose 5% and 0.45% NaCl infusion New Bag 11/08/2018 6:44 PM INFANT BABYSITTER 75 mL/hr at 75 mL/hr, Intravenous, CONTINUOUS, Starting on Thu11/07/18 at 1200, Until Thu11/09/18 at 0731 Restarted 11/08/2018 4:21 PM INFANT BABYSITTER 75 mL/hr New Bag 11/08/2018 7:35 AM INFANT BABYSITTER 100 mL/hr diphenhydrAMINE (BENADRYL) injection 12. 5 mg 12.5 mg, Intravenous, EVERY 6 HOURS PRN, itching, Only give if patient unable to take PO., Starting on Thu11/05/18 at 151 0, Caution to be used when administering multiple CARD GRADER depressing meds within a sh ort time frame. For ordered IV doses 1-50 mg, give IV Push undiluted. Give each 25 mg over a minimum of 1 minute. Extend in non-emergency diphenhydrAMINE (BENADRYL) solution 12.5 mg 12.5 mg, Oral, EVERY 6 HOURS PRN, itchin g, Starting on Thu11/05/18 at 1510, Caution to be used when administering multiple CARD GRADER depressing meds within a short time frame. fentaNYL (PF) (SUBLIMAZE) 100 MCG/2ML in jection Starting on Thu11/05/18 at 0841, For 1 d ose, Gwen Rivas : cabinet override For ordered IV doses 1-100 mcg give IV Push undiluted over a minimum of 3-5 minutes. fentaNYL (PF) (SUBLIMAZE) injection 100 mcg Given 11/05/2018 7:45 AM INFANT BABYSITTER 50 mcg 100 mcg, Intravenous, ONCE, Administer over 3-5 Minutes, On Thu11/05/18 at 0745, For 1 dose, For ordered IV doses 1-100 mcg give IV Push undiluted over a minimum of 3-5 minutes., Pre-procedure Given 11/05/2018 7:31 AM INFANT BABYSITTER 50 mcg fentaNYL (PF) (SUBLIMAZE) injection 25-5 0 mcg Given 11/05/2018 8:48 AM INFANT BABYSITTER 50 mcg 25-50 mcg, Intravenous, EVERY 5 [...] 50 m cg Given 11/05/2018 1:33 PM INFANT BABYSITTER 50 mcg 50 mcg, Intravenous, EVERY 5 MIN PRN, moderate to severe pain, Administer over 3-5 Minutes, Starting on Thu11/05/18 at 1333, For ordered IV doses 1-100 mcg give IV Push undiluted over a minimum of 3-5 minutes., PACU hydrALAZINE (APRESOLINE) injection 10-20 mg Given 11/08/2018 7:03 PM INFANT BABYSITTER 10 mg 10-20 mg, Intravenous, EVERY 1 [...] over 1 minute. Given 11/08/2018 11:51 AM INFANT BABYSITTER 20 mg Given 11/08/2018 3:36 AM INFANT BABYSITTER 20 mg labetalol (NORMODYNE/TRANDATE) 5 MG/ML i njection Starting on Thu11/05/18 at 1521, For 1 d [employer] thomas Doreen : cabinet override For ordered doses up to 80 mg, give IV Push undiluted. Give each 20 mg over 2 minutes. labetalol (NORMODYNE/TRANDATE) injection 10 mg Given 11/05/2018 3:43 PM INFANT BABYSITTER 10 mg 10 mg, Intravenous, EVERY 10 [...] 2 minutes., Post-procedure Given 11/05/2018 3:25 PM INFANT BABYSITTER 10 mg labetalol (NORMODYNE/TRANDATE) injection 10 mg Given 11/05/2018 1:45 PM INFANT BABYSITTER 10 mg 10 mg, Intravenous, ONCE, Administer over 2-8 Minutes, On Thu11/05/18 at 1400, For 1 dose, For ordered doses up to 80 mg, give IV Push undiluted. Give each 20 mg over 2 minutes., PACU labetalol (NORMODYNE/TRANDATE) injection 10-20 Given 0 11/08/2018 3:03 AM INFANT BABYSITTER 10 mg mg 10-20 mg, Intravenous, EVERY [...] over 2 minutes. Given 11/08/2018 2:33 AM INFANT BABYSITTER 20 mg Given 11/07/2018 10:35 PM INFANT BABYSITTER 10 mg labetalol (NORMODYNE/TRANDATE) injection 20 Given 11/05/2018 12:37 PM INFANT BABYSITTER 10 mg mg 20 mg, Intravenous, ONCE, Administer over 2-8 Minutes, On Thu11/05/18 at 1315, For 1 dose, For ordered doses up to 80 mg, give IV Push undiluted. Give each 20 mg over 2 minutes., Pre-procedure labetalol (NORMODYNE/TRANDATE) injection 5 mg Given 11/05/2018 1:13 PM INFANT BABYSITTER 5 mg 5 mg, Intravenous, ONCE, Administer over 2-8 Minutes, On Thu11/05/18 at 1315, For 1 dose, For ordered doses up to 80 mg, give IV Push undiluted. Give each 20 mg over 2 minutes., PACU lactated ringers infusion New Bag 11/05/2018 6:52 AM INFANT BABYSITTER 25 mL/hr at 25 mL/hr, Intravenous, CONTINUOUS, IF patient NOT on dialysis., Pre-procedure, Starting on Thu11/05/18 at 0645, Until Thu11/05/18 at 0836 lidocaine 1 % 1 mL Given 11/05/2018 6:53 AM INFANT BABYSITTER 0.3 mLs 1 mL, Other, EVERY 1 [...] 2 5 mg Given 11/08/2018 8:22 AM INFANT BABYSITTER 25 mg 25 mg, Oral, 2 TIMES DAILY, First dose (after last modification) on Thu11/05/18 at 1615 Given 11/07/2018 7:49 PM INFANT BABYSITTER 25 mg Given 11/07/2018 11:14 AM INFANT BABYSITTER 25 mg metoprolol tartrate (LOPRESSOR) tablet 5 0 mg Given 11/09/2018 8:28 AM INFANT BABYSITTER 50 mg 50 mg, Oral, 2 TIMES DAILY, First dose on Thu11/08/18 at 2100, Hold for SBP < 90, HR < 50 Given 11/08/2018 8:20 PM INFANT BABYSITTER 50 mg midazolam (VERSED) 1 MG/ML injection Starting on Thu11/05/18 at 0841, For 1 d Rob thomas Callie : cabinet override For ordered IV doses 0.1-2.5 mg give IV Push slowly titrat ed over a minimum of 2 minutes. Dilute each 1mg in 4mL of NS. midazolam (VERSED) injection 0.5-1 mg Given 11/05/2018 8:48 AM INFANT BABYSITTER 1 mg 0.5-1 mg, Intravenous, Administer over [...] injection 4 mg Given 11/05/2018 7:53 AM INFANT BABYSITTER 1 mg 4 mg, Intravenous, Administer over 2 Minutes, EVERY 4 MIN PRN, anxiety, Starting on Thu11/05/18 at 0732, For ordered IV doses 0.1-2.5 mg give IV Push slowly titrated over a minimum of 2 minutes. Dilute each 1mg in 4mL of NS., Pre-procedure Given 11/05/2018 7:49 AM INFANT BABYSITTER 1 mg Given 11/05/2018 7:38 AM INFANT BABYSITTER 1 mg omeprazole (priLOSEC) CR capsule 20 mg Given 11/09/2018 6:33 AM INFANT BABYSITTER 20 mg 20 mg, Oral, EVERY MORNING BEFORE BREAKFAST, First dose on 11/07/18 at 2345 Given 11/08/2018 8:22 AM INFANT BABYSITTER 20 mg Given 11/07/2018 11:48 PM INFANT BABYSITTER 20 mg ondansetron (ZOFRAN) injection 4 mg Given 11/07/2018 11:48 PM INFANT BABYSITTER 4 mg 4 mg, Intravenous, EVERY 6 [...] half-tab 2.5-5 mg Given 11/08/2018 12:37 PM INFANT BABYSITTER 5 mg 2.5-5 mg, Oral, EVERY 4 HOURS PRN, moderate to severe pain, Starting on Thu11/05/18 at 1724 Given 11/08/2018 6:19 AM INFANT BABYSITTER 5 mg Given 11/07/2018 7:49 PM INFANT BABYSITTER 5 mg phenylephrine Rate/Dose Change 11/06/2018 6:45 0.3 mcg/kg/min 7.6 mL/ hr (OSIEL-SYNEPHRINE) 50 mg PM INFANT BABYSITTER in sodium chloride 0.9 % 250 mL [...] goals. Vesicant. Rate/Dose Change 11/06/2018 6:15 PM INFANT BABYSITTER 0.5 mcg/kg/min 12.6 mL/hr Rate/Dose Change 11/06/2018 5:34 PM INFANT BABYSITTER 0.7 mcg/kg/min 17.7 mL/hr sennosides (SENOKOT) tablet 8.6 mg Given 11/08/2018 3:36 AM INFANT BABYSITTER 8.6 mg 8.6 mg, Oral, 2 TIMES DAILY PRN, constipation, Starting on Thu11/08/18 at 0250 sodium chloride (PF) 0.9% PF flush 3 mL Given 11/07/2018 4:12 PM INFANT BABYSITTER 3 mLs 3 mL, Intracatheter, EVERY 8 HOURS, First dose on Thu11/05/18 at 1515, And Q1H PRN, to lock peripheral IV dormant line. Given 11/07/2018 11:34 AM INFANT BABYSITTER 3 mLs Given 11/07/2018 12:06 AM INFANT BABYSITTER 10 mLs sodium chloride 0.9% infusion New Bag 11/06/2018 7:48 PM INFANT BABYSITTER 100 mL/hr at 100 mL/hr, Intravenous, CONTINUOUS, For patient on renal dialysis. Saline lock after 1 liter if taking PO fluids., Post-procedure, Starting on Thu11/05/18 at 1515, Until Thu11/08/18 at 1245 New Bag 11/06/2018 12:08 PM INFANT BABYSITTER 100 mL/hr New Bag 11/06/2018 2:33 AM INFANT BABYSITTER 100 mL/hr terazosin (HYTRIN) capsule 5 mg Given 11/08/2018 9:21 PM INFANT BABYSITTER 5 mg 5 mg, Oral, AT BEDTIME, First dose on Thu11/05/18 at 2200 documented in this encounter Active and Recently Administered Medications Times are shown in INFANT BABYSITTER. Scheduled Medication Order 11/07/2018 11/08/2018 11/09/2018 apixaban [...] Caution to be used when administering multiple CARD GRADER depressing meds within a short time frame. For ordered IV doses 1-50 m g, give IV Push undiluted. Give each 25mg over a minimum of 1 minute. Extend in non-emergency diphenhydrAMINE (BENADRYL) solution 12.5 mg(Linked Group 1) 12.5 mg, Oral, EVERY 6 HOURS PRN, itchin g, Starting 11/05/18 at 1510, Caution to be used when administering multiple CARD GRADER depressing meds within a short time frame. [...]
Caution to be used when administering multiple CARD GRADER depressing meds within a short time frame.
Or diphenhydrAMINE (BENADRYL) injection 12.5 mgJump to med 12.5 mg, Intravenous, EVERY 6 HOURS PRN, itching, Only give if patient unable to take PO., Starting Thu11/05/18 at 1510
Caution to be used when administering multiple CARD GRADER depressing meds within a short time frame. [...] documented as of this encounter Care Teams Municipal Bond Trader Relationship Specialty Start Date End Date [facility] [place] PCP - General 05/12/17 [address] [place] [address] documented as of this encounter
--- OUTSIDE RECORDS SUMMARY | 2022-07-03 14:25 | XMS_ITS | Encounter Summary ---
:1940 Author Organization [facility] Address [address] [place] [address] Care Team Providers Name Role Phone [facility], [facility] Primary Care Provider [phone] Encounter Details Date Type Department Care Team [...] documented as of this encounter Care Teams Lease Buyer Relationship Specialty Start Date End Date [facility], [facility] PCP - General 05/12/[address] [place] [address] documented as of this encounter
--- OUTSIDE RECORDS SUMMARY | 2022-07-03 14:25 | XMS_ITS | Encounter Summary ---
:1940 Author Organization [facility] Address [address] [place] [address] Care Team Providers Name Role Phone Clinic, [facility] Primary Care Provider [phone] Reason for Visit Surgical Procedure Inpatient (Routine) - Closed Specialty Diagnoses / Procedures Referred By Contact Refer red To Contact Vascular Surgery / Diagnoses DESCENDING THORACIC AORTIC ANEURYSM Juan Vásquez Brett Surgery Procedures *OR51*DR. VÁSQUEZ/DR. GARVIN*THORACIC ENDOVASCULAR ANEURYSM REPAIR WITH [employer] GRAFT MD Pierre Nava MD [address] [place] [address] [place] [address] Fax: Referral ID Status Reason Start Date Expiration Date Visits Requ ested Visits Authorized [id number] Closed 11/05/2018 11/05/2019 1 1 Encounter Details Date Type Department Care Team Description 11/05/2018 Office Visit SX SURGERY CASES Butch Garvin MD [address] [place] [address] Juan Vásquez MD [address] [place] [id number] Fellow, Sh Surg Cons Social History Tobacco [...] documented as of this encounter Care Teams Business Planning Director Relationship Specialty Start Date End Date [facility] PCP - General 05/12/17 [address] [place] [address] documented as of this encounter
--- OUTSIDE RECORDS SUMMARY | 2022-07-03 14:25 | XMS_ITS | Encounter Summary ---
:1940 Author Organization [facility] Address [facility] [place] [address] Care Team Providers Name Role Phone Clinic, [facility] Primary Care Provider [phone] Encounter Details Date Type Department Care Team Description 11/05/[address] [facility] Bart Feliciano [place] MD Interventional [facility] Radiology [address] [place] [address] [place] [id number] [phone] Anesthesia Record Procedure Summary Procedure Name Responsible [...] documented as of this encounter Care Teams Electrical Timing Device Calibrator Relationship Specialty Start Date End Date [facility], [facility] PCP - General 05/12/[address] [place] [address] documented as of this encounter
--- OUTSIDE RECORDS SUMMARY | 2022-07-03 14:26 | XMS_ITS | Encounter Summary ---
:1940 Author Organization [facility] Address [facility] [place] [address] Care Team Providers Name Role Phone Clinic, [facility] Primary Care Provider [phone] Encounter Details Date Type Department Care Team Description 07/30/[address] [facility] Vascular Sophie ipper, Juan Nava MD Clinic [place] [address] [place] [address] [place] [address] [phone] Social History Tobacco Use Types Packs/Day Years [...] AAA WITH [employer] GRAFT Location of surgery: [facility] OR Date and time of surgery: 09/28/18 @ 12:30pm Surgeon: DR. VÁSQUEZ AND DR. ALANIZ Pre-Op Appt Date: PT TO SCHEDULE AT [facility] Post-Op Appt Date: PT TO SCHEDULE Packet sent out: YES ON 09/02/18 Pre-cert/Authorization completed: Yes Date: 09/14/18 [facility] Telephone Encounter - Aruna Simmons - 07/30/2018 4:00 PM CDT Daughter Raquel called to schedule her dad's surgery in September. I took note of the dates they would like. I am waiting on the schedule for the Interventional Radiologist that Dr. Vásquez requested. Raquel understands I will follow up with her next week. .Aruna Simmons, Nurse'S Aides Teacher documented in this encounter Plan of Treatment Not on filedocumented as of this encounter Visit Diagnoses Not on filedocumented in this encounter Care Teams Clinical Business Analyst Relationship Specialty Start Date End Date Clinic, [facility] PCP - General 05/12/[address] [place] [address] documented as of this encounter
--- OUTSIDE RECORDS SUMMARY | 2022-07-03 14:26 | XMS_ITS | Encounter Summary ---
:1940 Author Organization [place] Address [address] [place] [address] Care Team Providers Name Role Phone Clinic, [facility] Primary Care Provider [phone] Reason for Visit Auth/Cert Specialty Diagnoses / Procedures Referred By Contact Refer red To Contact Surgery Diagnoses ABDOMINAL AORTIC ANEURYSM Periop Services Procedures ENDOVASCULAR REPAIR ANEURYSM ABDOMINAL AORTA [address], [address] [place] [address] Phone: Referral ID Status Reason Start Date Expiration Date Visits Requ ested Visits Authorized [id number] 1 1 Encounter Details Date Type Department Care Team Description 09/28/2018 Surgery [facility] Juan Vásquez FEMORAL [place] PeriOP MD Elijah CUTDOWN WITH ANGIOGRAM Services [address] [place] [address] [place] [address] [phone] Surgery Details Date/Time Status Location OR Service [...] Comments Blood Pressure 146/79 09/28/2018 3:00 PM MISSILE TECHNICIAN Pulse 60 09/28/2018 11:21 AM MISSILE TECHNICIAN Temperature 36.5 ??C (97.7 ??F) 09/28/2018 3:00 PM MISSILE TECHNICIAN Respiratory Rate 9 09/28/2018 3:50 PM MISSILE TECHNICIAN Oxygen Saturation 94% 09/28/2018 3:50 PM MISSILE TECHNICIAN Inhaled Oxygen Concentration - - Weight 84.8 kg (187 lb) 09/28/2018 11:21 AM MISSILE TECHNICIAN Height 170.2 cm (5' 7) 09/28/2018 11:21 AM MISSILE TECHNICIAN Body Mass Index 29.41 09/28/2018 11:21 AM MISSILE TECHNICIAN documented in this encounter Discharge Summaries Juan [...] MD MT: RIO Name: SPEEDY MCDUFFIE Account: [id number] : 1940 Admit Date: 09/28/2018 Discharge Date: 09/29/2018 Document: [id number] cc: Primary ILE TECHNICIAN documented in this encounter Medications at Time [...] Levi MD - 09/29/2018 9:32 AM CST [facility] Vascular Medicine [...] aorta. Exchange was made for a 6 Tanzanian vascular sheath. 18-gauge singlewall needle was then advanced into the left common femoral artery through which a 0.035 inch Bentson wire was advanced in the abdominal aorta. Exchange is made for a 6 Tanzanian vascular sheath. Via the left groin access, a 5 Tanzanian pigtail catheter was advanced over the Bentson wire into the abdominal aorta. Via the right groin, a 5 Tanzanian pigtail catheter was advanced over the Bentson [...] concerns during business hours M-F, call the [facility] at [phone] to have the rounding/communications senior associate Vascular Medicine (NOT VASCULAR SURGERY) paged. - After business hours M-F,??for medical concerns on this patient, please page hospitalist staff. - For vascular surgical questions, please page the appropriate surgeon (primary vascular surgeon or communications senior associate vascular surgeon) based upon the time of day. Lambert Fontanez PA-C Zoltan Londono MD - 09/29/2018 8:19 AM CST [facility] Vascular Surgery Progress Note Assessment [...] concerns during business hours M-F, call the [facility] Vascular [facility] at [phone] to have the rounding/communications senior associate Vascular Medicine (NOT VASCULAR SURGERY) MD paged. - After business hours M-,??for medical concerns on this patient, please page hospitalist staff. - For vascular surgical questions, please page the appropriate surgeon (primary vascular surgeon or communications senior associate vascular surgeon) based upon the time of day. Brandie Barrera PA-C Michelle Jones - 09/28/2018 10:42 AM CST Admission medication history interview status for the 09/28/2018 admission is complete. See [facility] admission navigator for prior to admission medications Medication history source reliability:Good Medication history interview source(s):Patient Medication history resources (including written lists, pill bottles, clinic record):Patient mailed in his medication list prior to surgery Primary pharmacy.[facility] Additional medication history information not noted on LIBRARY SPECIALIST med list :None Time spent in this [...] at HS Yes Unknown, Entered By History ILE TECHNICIAN documented in this encounter Procedure Notes Jacqui [...] for procedural details. Provider name: Jacqui Odom Talent Manager(s):None ILE TECHNICIAN documented in this encounter Consult Notes Carrie [...] 1978. 2. Cervical fusion, Dr. Donahue at [facility] 02/18/2006. 3. Hardware removal and matrixectomy, right great toe, 09/30/2012. 4. Lumbar fusion 10/1996, L5-S1. 5. Lumbar fusion 1999, L4. 6. 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 7. Laparoscopic appendectomy, 01/2009. SOCIAL HISTORY: The patient is . He has 2 children. 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 He quit smoking [id number] after a 1/4 pack per day use [...] MD MT: JACKSON Name: SPEEDY MCDUFFIE Account: [id number] : 1940 Consult Date: 09/28/2018 Document: [id number] ILE TECHNICIAN documented in this encounter Miscellaneous Notes Op Note - Juan Vásuqez MD - 09/29/2018 3:53 PM CST Procedure [...] MD MT: JACKSON Name: SPEEDY MCDUFFIE Account: [id number] : 1940 Procedure Date: 09/28/2018 Document: [id number] ILE TECHNICIAN Plan of Care - Griselda Dinero RN [...] will continue to follow up with this. ILE TECHNICIAN Provider Notification - Levi Hollingsworth MD - 09/29/2018 12:46 AM MISSILE TECHNICIAN Brief update: Paged re: request for home melatonin 10 mg melatonin HS PRN added. Levi Hollingsworth MD 12:47 AM ILE TECHNICIAN Plan of Care - Ira South RN - 09/28/2018 11:11 PM CST A&O, VSS, Lung sounds clear, Bowel sounds active,adeqaute urine output, incision right & letgroin CDI Ambulates assist 1, Regular diet, tolerating liquids with poor appetite. Pain controlled by scheduled tylenol and PRN oxycodone. ILE TECHNICIAN Plan of Care - Vandana Smith RN - 09/28/2018 7:22 PM CST Pt is came from PACU.Groin site dressing clean dry and intact.Not void yet.Ice pack given.IVF running .will monitor. ILE TECHNICIAN documented in this encounter Plan of Treatment Not on filedocumented as of this encounter Procedures Procedure Name Priority Date/Time Associated Comments Diagnosis CTA CHEST WITH Routine 09/29/2018 11:38 Results f or this CONTRAST AM MISSILE TECHNICIAN procedure are i n the results section. BASIC METABOLIC PANEL Timed 09/29/2018 10:06 AAA (abdominal Results for this AM MISSILE TECHNICIAN aortic aneurysm) procedure a re in (H) the results section. GLUCOSE BY METER Routine 09/29/2018 6:00 AM AAA (abdominal Res ults for this MISSILE TECHNICIAN aortic aneurysm) procedure a re in (H) the results section. ANGIOGRAM Routine 09/28/2018 2:39 PM MISSILE TECHNICIAN IR ABDOMINAL Routine 09/28/2018 2:17 PM AAA (abdominal Results for this ENDOVASCULAR STENT MISSILE TECHNICIAN aortic aneurysm) proce dure are in GRAFT (H) the results section. EKG 12-LEAD, TRACING STAT 09/28/2018 11:42 Res ults for this ONLY AM MISSILE TECHNICIAN procedure are i n the results section. XR CHEST 1 VIEW STAT 09/28/2018 11:21 Results for this AM MISSILE TECHNICIAN procedure are i n the results section. BLOOD COMPONENT Routine 09/28/2018 11:11 AAA (abdominal Result s for this AM MISSILE TECHNICIAN aortic aneurysm) procedure a re in (H) the results section. BLOOD COMPONENT Routine 09/28/2018 11:11 AAA (abdominal Result s for this AM MISSILE TECHNICIAN aortic aneurysm) procedure a re in (H) the results section. POTASSIUM STAT 09/28/2018 11:11 AAA (abdominal Results f or this AM MISSILE TECHNICIAN aortic aneurysm) procedure a re in (H) the results section. LIPID PROFILE STAT 09/28/2018 11:11 AAA (abdominal Results for this AM MISSILE TECHNICIAN aortic aneurysm) procedure a re in (H) the results section. HEMOGLOBIN A1C STAT 09/28/2018 11:11 AAA (abdominal Results for this AM MISSILE TECHNICIAN aortic aneurysm) procedure a re in (H) the results section. CREATININE STAT 09/28/2018 11:11 AAA (abdominal Results f or this AM MISSILE TECHNICIAN aortic aneurysm) procedure a re in (H) the results section. ABO/RH TYPE AND STAT 09/28/2018 11:11 AAA (abdominal Result s for this SCREEN AM MISSILE TECHNICIAN aortic aneurysm) procedure a re in (H) the results section. LAB RESULT - HIM SCAN 09/24/2018 12:00 AM MISSILE TECHNICIAN EKG CARDIAC - HIM 09/24/2018 12:00 SCAN AM MISSILE TECHNICIAN documented in this encounter Results CTA Chest with Contrast (09/29/2018 11:38 AM MISSILE TECHNICIAN) Anatomical Region Laterality Modality Chest, SUBRAD IR PROCEDURE, UMP CT CTA, RAD CT Computed Tomography Specimen (Source) Anatomical Location Collection Method / Collectio n Time Received Time / Laterality Volume Impressions 09/29/2018 4:30 PM MISSILE TECHNICIAN IMPRESSION: Tortuous descending thoracic aorta with bilobed aneurysmal dilatation measuring up to 50 mm in diameter in the distal descending aorta. JACQUI ODOM MD Narrative 09/29/2018 4:30 PM MISSILE TECHNICIAN PROCEDURE: CTA of the chest DATE OF [...] ORDERABLES Basic metabolic panel (09/29/2018 10:06 AM MISSILE TECHNICIAN) [facility] Method Time Signature Sodium 141 133 - 144 09/29/2018 [place] mmol/L 10:31 AM MISSILE TECHNICIAN [facility] Potassium 4.5 3.4 - 5.3 09/29/2018 [place] mmol/L 10:31 AM [facility] Chloride 109 94 - 109 09/29/2018 [place] mmol/L 10:31 AM [facility] Carbon Dioxide 25 20 - 32 09/29/2018 [place] mmol/L 10:31 AM [facility] Anion Gap 7 3 - 14 09/29/2018 [place] mmol/L 10:31 AM [facility] Glucose 97 70 - 99 09/29/2018 [place] mg/dL 10:31 AM [facility] Urea Nitrogen 18 7 - 30 09/29/2018 [place] mg/dL 10:31 AM [facility] Creatinine 1.25 0.66 - 09/29/2018 [place] 1.25 10:31 AM [facility] GFR Estimate Not Calculated >60 09/29/2018 [place] mL/min/1. 10:[address] GFR Estimate Not Calculated >60 09/29/2018 [place] If Black mL/min/1. 10:[address] Calcium 8.8 8.5 - 09/29/2018 [place] 10.1 10:31 AM [facility] mg/dL [facility] Specimen Anatomical Collection Method Collection Time Receive d Time (Source) Location / / Volume Laterality Blood specimen 09/29/2018 10:06 8 (specimen) AM MISSILE TECHNICIAN 10:07 AM MISSILE TECHNICIAN Pam Conde PA-C LAB - BLOOD ORDERABLES Performing Organization Address City/State/ZIP Code Phon e Number M [facility] [address] [address] [facility] [address] [address], [facility] [phone] (ABNORMAL) Glucose by meter (09/29/2018 6:00 AM MISSILE TECHNICIAN) P athologist Signature Glucose 109 (H) 70 - 99 09/29/2018 POINT OF CARE mg/dL 6:18 AM MISSILE TECHNICIAN TEST, GLUCOSE Specimen Anatomical Collection Method Collection Time Receive d Time (Source) Location / / Volume Laterality 09/29/2018 6:00 AM 8 6:18 MISSILE TECHNICIAN AM MISSILE TECHNICIAN Juan Vásquez MD LAB - CAROLYN POCT Performing Organization Address City/State/ZIP Code Phon e Number [facility] POINT OF CARE TEST, GLUCOSE POINT OF CARE TEST, GLUCOSE IR Abdominal Endovascular Stent Graft (09/28/2018 2:17 PM MISSILE TECHNICIAN) Anatomical Region Laterality Modality Abdomen/Pelvis Radio Fluoroscopy Specimen (Source) Anatomical Location Collection Method / Collectio n Time Received Time / Laterality Volume Impressions 09/29/2018 8:52 AM MISSILE TECHNICIAN Impression: 1. Thoracic and abdominal angiography de monstrating previously unknown thoracic aortic aneurysm as well as the known abdominal aortic aneurysm 2. Endovascular aneurysm repair was abor clover to allow for further investigation of the thoracic aortic ane urysm and future surgical planning. JACQUI ODOM MD Narrative 09/29/2018 8:52 AM MISSILE TECHNICIAN PROCEDURE(S): 1. Thoracic and abdominal aortic angiogr aphy DATE OF PROCEDURE: 09/28/2018 2:17 PM OPERATORS: Interventional radiology staff: Jacqui strauss MD Vascular surgery staff: Jami Trejo Vascular surgery fellow: Zlotan Crowell MD MEDICATIONS: ?? All medications were [...] aneurysm repair. A timeout was performed per [facility]al protocol policy to confirm the [...] aorta. Exchange was made for a 6 Tanzanian vascula r sheath. 18-gauge singlewall needle was then advanced into the left c ommon femoral artery through which a 0.035 inch Bentson wire was adva nced in the abdominal aorta. Exchange is made for a 6 [place]anian vascular sheath. Via the left groin access, a 5 [place]anian pigtail catheter was advanced over the Bentson wire into the abdominal aorta. Via the right groin, a 5 [place] pigtail catheter was advanced over the Bentson [...] repair. A timeout was performed per [facility] protocol policy to confirm the correct patient, site and pr ocedure to be performed. Please note that due to the complex natu re of the procedure, a multi-disciplinary approach was used [facility] involved Mili Vásquez and Lei functioning as co-surgeons for t his procedure. Bilateral common femoral arteries were s urgically exposed, see separate operative report for details. A n 18-gauge singlewall needle was then inserted into the right common femoral artery through which a 0.035 inch Bentson wire was advanced int o the abdominal aorta. Exchange was made for a 6 [place]anian vascula r sheath. 18-gauge singlewall needle was then advanced into the left c ommon femoral artery through which a 0.035 inch Bentson wire was adva nced in the abdominal aorta. Exchange is made for a 6 Tanzanian vascular sheath. Via the left groin access, a 5 [place]anian pigtail catheter was advanced over the Bentson wire into the abdominal aorta. Via the right groin, a 5 [place] pigtail catheter was advanced over the Bentson [...] EKG 12-lead, tracing only (09/28/2018 11:42 AM MISSILE TECHNICIAN) [facility] [employer] Method Time Signature Interpretation ECG Click View RADIOLOGY Image link RESULTS to view waveform and result Specimen (Source) Anatomical Collection Method Collection Time Re ceived Time Location / / Volume Laterality 09/28/2018 11:42 AM MISSILE TECHNICIAN Juan Vásquez MD ECG ORDERABLES Performing Organization Address City/State/ZIP Code Phon e Number RADIOLOGY RESULTS XR Chest 1 View (09/28/2018 11:21 AM MISSILE TECHNICIAN) Anatomical Region Laterality Modality Chest Digital Radiography Specimen (Source) Anatomical Location Collection Method / Collectio n Time Received Time / Laterality Volume Impressions 09/28/2018 1:09 PM MISSILE TECHNICIAN IMPRESSION: Heart size similar to prior. The thoracic aorta is elongated. No airspace consolidation or pneumothorax. There appears to be a small right pleural effusion. ELAINA HUNTLEY MD Narrative 09/28/2018 1:09 PM MISSILE TECHNICIAN CHEST ONE VIEW ??09/28/2018 11:21 AM HISTORY: [...] ORDER BRAYDEN Blood component (09/28/2018 11:11 AM MISSILE TECHNICIAN) [facility] [employer] Method Time Signature Unit Number [id number] 09/28/2018 [facility] 1:21 PM [facility] Blood Red Blood 09/28/2018 [facility] Component Cells 1:21 PM [facility] HOSPITAL Reduced Division 00 09/28/2018 [facility] Number 1:21 PM [facility] Status of No longer 10/02/2018 [facility] Unit available 3:00 AM [facility] 10/02/2018 HOSPITAL 0300 Blood Product [id number] 09/28/2018 [facility] Code 1:21 PM MISSILE TECHNICIAN [facility] Unit Status [facility] Specimen Anatomical Collection Method Collection Time Receive d Time (Source) Location / / Volume Laterality 09/28/2018 11:11 09/28/2018 AM MISSILE TECHNICIAN 11:44 AM MISSILE TECHNICIAN Juan Vásquez MD LABORATORY Performing Organization Address City/State/ZIP Code Phon e Number M [facility] [address] [place], [place] [address] [facility] [address] [address], [facility] [address], [place] [address], [facility] [phone] Blood component (09/28/2018 11:11 AM MISSILE TECHNICIAN) [facility] gist Method Time Signature Unit Number [id number] 09/28/2018 [facility] 1:21 PM [facility] Blood Red Blood 09/28/2018 [facility] Component Cells 1:21 PM [facility] Reduced Division 00 09/28/2018 [facility] Number 1:21 PM [facility] Status of No longer 10/02/2018 [facility] Unit available 3:00 AM [facility] 10/02/2018 [facility]OS[facility] 0300 Blood Product [id number] 09/28/2018 [facility] Code 1:21 PM [facility] Unit Status [facility] Specimen Anatomical Collection Method Collection Time Receive d Time (Source) Location / / Volume Laterality 09/28/2018 11:11 09/28/2018 AM MISSILE TECHNICIAN 11:44 AM MISSILE TECHNICIAN Juan Vásquez MD LABORATORY Performing Organization Address City/State/ZIP Code Phon e Number M [facility] [address] [place], [place] [address] [facility] [address] [address], [facility] [address], [place] [address], [facility] [phone] Potassium (09/28/2018 11:11 AM MISSILE TECHNICIAN) athologist Signature Potassium 4.0 3.4 - 5.3 09/28/2018 [place] mmol/L 12:22 PM [facility] Specimen Anatomical Collection Method Collection Time Receive d Time (Source) Location / / Volume Laterality Blood specimen 09/28/2018 11:11 8 (specimen) AM MISSILE TECHNICIAN 11:43 AM MISSILE TECHNICIAN Ramiro Card MD LAB - BLOOD ORDERABLES Performing Organization Address City/State/ZIP Code Phon e Number M [facility] [address] [place] [address] [phone] [facility] [address] [place] [address], [place] [phone] Lipid panel (09/28/2018 11:11 AM MISSILE TECHNICIAN) Analysis Performed At Patho logist Time Signature Cholesterol 143 <200 mg/dL 09/28/2018 [place] 12:22 PM [facility] Triglycerides 115 <150 mg/dL 09/28/2018 [facility] 12:24 PM [facility] HDL Cholesterol 68 >39 mg/dL 09/28/2018 [facility] 12:24 PM [facility] LDL Cholesterol 52 <100 mg/dL 09/28/2018 [facility] Calculated 12:24 PM [facility] Comment: Desirable: <100 mg/dl Non HDL Cholesterol 75 <130 mg/dL 09/28/2018 12:24 PM [facility] Specimen Anatomical Collection Method Collection Time Receive d Time (Source) Location / / Volume Laterality Blood specimen 09/28/2018 11:11 8 (specimen) AM MISSILE TECHNICIAN 11:43 AM MISSILE TECHNICIAN Juan Vásquez MD LAB - BLOOD ORDERABLES Performing Organization Address City/State/ZIP Code Phon e Number M [facility] [address] [place] [address] [phone] [facility] [address] [place] [address], [place] [phone] (ABNORMAL) ABO/Rh type and screen (09/28/2018 11:11 AM MISSILE TECHNICIAN) Component Value Ref Test Analysis Performed At Patholo gist Range Method Time Signature Units Ordered 2 09/28/2018 [facility] 11:54 AM [facility] ABO O 09/28/2018 [facility] 12:28 PM [facility] RH(D) Pos [facility] Antibody Screen Pos (A) 09/28/2018 [facility] 12:28 PM [facility] Test Valid Only [place] 09/28/2018 [facility] 11:47 AM [facility] Specimen Expires 10/01/2018 09/28/2018 [facility] 11:47 AM [facility] Crossmatch Red Blood Cells 09/28/2018 [facility] 11:54 AM [facility] Blood Bank Delay in availability of Red Blood Cells called to 09/28/2018 [facility] Comment Esme in Preop at 1228 re 12:37 PM [facility] Antibody ANTI-Rosa 09/28/2018 [facility] Identification 1:26 PM [facility] Antigen Type Rosa Negative 09/28/2018 [facility] 1:26 PM [facility] Specimen Anatomical Collection Method Collection Time Receive d Time (Source) Location / / Volume Laterality Blood specimen 09/28/2018 11:11 8 (specimen) AM MISSILE TECHNICIAN 11:44 AM MISSILE TECHNICIAN Juan Vásquez MD LAB - BLOOD BANK TEST ORDER Performing Organization Address City/State/ZIP Code Phon e Number M [facility] [address] [phone] [facility] [address] [address], [facility] [phone] (ABNORMAL) Hemoglobin A1c (09/28/2018 11:11 AM MISSILE TECHNICIAN) P athologist Signature Hemoglobin A1C 5.7 (H) 0 - 5.6 % 09/28/2018 [facility] 12:08 PM [facility] Comment: Normal <5.7% Prediabetes 5.7-6.4% ??Diab etes 6.5% or higher - adopted from ADA consensus guidelines. Specimen Anatomical Collection Method Collection Time Receive d Time (Source) Location / / Volume Laterality Blood specimen 09/28/2018 11:11 8 (specimen) AM MISSILE TECHNICIAN 11:43 AM MISSILE TECHNICIAN Juan Vásquez MD LAB - BLOOD ORDERABLES Performing Organization Address City/State/ZIP Code Phon e Number M [facility] [address] [address] [facility] [address] [address], [place] [phone] (ABNORMAL) Creatinine (09/28/2018 11:11 AM MISSILE TECHNICIAN) P athologist Signature Creatinine 1.46 (H) 0.66 - 09/28/2018 [place] 1.25 mg/dL 12:22 PM [facility] GFR Estimate 47 (L) >60 09/28/2018 [place] mL/min/1.7 12:[address] Comment: Non GFR Calc GFR Estimate If 57 (L) >60 mL/min/1.7m2 09/28/2018 12:[address] [facility] Comment: GFR Calc Specimen Anatomical Collection Method Collection Time Receive d Time (Source) Location / / Volume Laterality Blood specimen 09/28/2018 11:11 8 (specimen) AM MISSILE TECHNICIAN 11:43 AM MISSILE TECHNICIAN Juan Vásquez MD LAB - BLOOD ORDERABLES Performing Organization Address City/State/ZIP Code Phon e Number Jami [facility] [address] [address] [facility] [address] [address], [place] [phone] LAB RESULT - HIM SCAN (09/24/2018 12:00 AM MISSILE TECHNICIAN) Specimen (Source) Anatomical Location Collection Method / Collectio n Time Received Time / Laterality Volume 09/24/2018 Narrative This result has an attachment that is no t available. Provider Outside NON-BEAKER LAB TESTING EKG CARDIAC - HIM SCAN (09/24/2018 12:00 AM MISSILE TECHNICIAN) Specimen (Source) Anatomical Location Collection Method / [...] (TYLENOL) tablet 975 Given 09/29/2018 5:41 AM MISSILE TECHNICIAN 975 mg mg 975 mg, Oral, EVERY 8 HOURS, First dose on Thu09/28/18 at 2200, For 3 days, Do not use if patient has an active opioid/acetaminophen combined analgesic product ordered for pain. Maximum acetaminophen dose from all sources = 75 mg/kg/day not to exceed 4 grams/day., Post-procedure Given 09/28/2018 9:50 PM MISSILE TECHNICIAN 975 mg atorvastatin (LIPITOR) tablet 40 mg Given 09/28/2018 9:50 PM MISSILE TECHNICIAN 40 mg 40 mg, Oral, EVERY EVENING, First dose on Thu09/28/18 at 2000 heparin 10,000 units in 1000 mL 0.9% Given 09/28/2018 1:37 PM CS T 1,000 mLs sodium chloride PRN, Starting on Thu09/28/18 at 1335, Intra-procedure Given 09/28/2018 1:36 PM MISSILE TECHNICIAN 1,000 mLs Given 09/28/2018 1:35 PM MISSILE TECHNICIAN 1,000 mLs lactated ringers infusion New Bag 09/29/2018 2:48 AM MISSILE TECHNICIAN 125 mL/hr at 125 mL/hr, Intravenous, CONTINUOUS, NOT for patient on renal dialysis. Saline lock after 1 liter if taking PO fluids., Post-procedure, Starting on Thu09/28/18 at 1800, Until Thu09/29/18 at 1753 Rate/Dose Verify 09/29/2018 12:39 AM MISSILE TECHNICIAN 125 mL/hr New Bag 09/28/2018 6:31 PM MISSILE TECHNICIAN 125 mL/hr lisinopril (PRINIVIL/ZESTRIL) tablet 5 m g Given 09/29/2018 8:21 AM MISSILE TECHNICIAN 5 mg 5 mg, Oral, 2 TIMES DAILY, First dose on Thu09/28/18 at 2100 Given 09/28/2018 9:52 PM MISSILE TECHNICIAN 5 mg melatonin tablet 10 mg Given 09/29/2018 2:48 AM MISSILE TECHNICIAN 10 mg 10 mg, Oral, AT BEDTIME PRN, sleep, Starting on Thu09/29/18 at 0044 metoprolol tartrate (LOPRESSOR) tablet 5 0 mg Given 09/29/2018 8:21 AM MISSILE TECHNICIAN 50 mg 50 mg, Oral, 2 TIMES DAILY, First dose on Thu09/28/18 at 2100 Given 09/28/2018 9:50 PM MISSILE TECHNICIAN 50 mg oxyCODONE (ROXICODONE) tablet 5 mg Given 09/28/2018 10:49 PM MISSILE TECHNICIAN 5 mg 5 mg, Oral, EVERY 3 HOURS PRN, other, pain control or improvement in physical function. Hold dose for analgesic side effects., Starting on Thu09/28/18 at 1751, Notify provider to assess for uncontrolled pain or analgesic side effects. Hold while on GLASS BREAKER or with regular IV opioid dosing. Maximum total is 40 mg in 24 hours., Post-procedure sodium chloride (PF) 0.9% PF flush 3 mL Given 09/28/2018 9:58 PM MISSILE TECHNICIAN 3 mLs 3 mL, Intracatheter, EVERY 8 HOURS, First dose on Thu09/28/18 at 2200, And Q1H PRN, to lock peripheral IV dormant line., Post-procedure terazosin (HYTRIN) capsule 5 mg Given 09/28/2018 10:49 PM MISSILE TECHNICIAN 5 mg 5 mg, Oral, AT BEDTIME, First dose on Thu09/28/18 at 2200 documented in this encounter Active and Recently Administered Medications Times are shown in MISSILE TECHNICIAN. Scheduled Medication Order 09/27/2018 09/28/2018 09/29/2018 acetaminophen [...] Volume Adjustment - Provider: Mattie Marmolejo APRN PAINTER APPRENTICE)1432 (Anesthesia Volume Adjustment - Provider: Mattie Marmolejo APRN PAINTER APPRENTICE) at 25 mL/hr, Intravenous, CONTINUOUS, IF patient [...] response., Post-procedure oxyCODONE (ROXICODONE) tablet 5 mg 9188 (Given - Provider: Ira South, JOSE) 5 mg, Oral, EVERY 3 HOURS PRN, other, pa in control or improvement in physical function. Hold dose for analgesic side effects., Starting Thu09/28/18 at 1751, Notify provider to assess for uncontrolled p ain or analgesic side effects. Hold whil e on GLASS BREAKER or with regular IV opioid dosing. Maximum total is 40 mg in 24 hours., Post-procedure sodium chloride (PF) 0.9% PF flush 3 mL 3 mL, Intracatheter, EVERY 1 HOUR PRN, l ine flush, for peripheral IV flush post IV meds, Starting Thu09/28/18 at 1751, Post-procedure documented in this encounter Care Teams Route Sales Representative Relationship Specialty Start Date End Date Clinic, [facility] PCP - General 05/12/[address] [place] [address] documented as of this encounter
--- OUTSIDE RECORDS SUMMARY | 2022-07-03 14:26 | XMS_ITS | Encounter Summary ---
:1940 Author Organization [place] Address [address] [place] [address] Care Team Providers Name Role Phone Clinic, [facility] Primary Care Provider [phone] Reason for Visit Surgical Procedure Inpatient (Routine) - Closed Specialty Diagnoses / Procedures Referred By Contact Refer red To Contact Surgery Diagnoses AAA Juan Lewis MD Saylor, Howard Leroy, Procedures *OR 51* DR. ALANIZ TO ASSIST WITH ENDOVASCULAR REPAIR OF AAA WITH [employer] GRAFT [address] [place] [id number] [address] [place] [address] Phone: Fax: Referral ID Status Reason Start Date Expiration Date Visits Requ ested Visits Authorized [id number] Closed 09/28/2018 09/28/2019 1 1 Encounter Details Date Type Department Care Team Description 09/28/2018 Office Visit [facility] Juan Lewis MD [address] [place] [id number] Fellow, Sh Surg Cons Social History Tobacco [...] on filedocumented in this encounter Care Teams Core Checker Relationship Specialty Start Date End Date [facility] [place] [facility] - General 05/12/[address] [place] [address] documented as of this encounter
--- OUTSIDE RECORDS SUMMARY | 2022-07-03 14:26 | XMS_ITS | Encounter Summary ---
:1940 Author Organization [place] Address [facility] [place] [address] Care Team Providers Name Role Phone Clinic, [facility] Primary Care Provider [phone] Reason for Visit Reason Onset Date Comments Medication Question 05/24/2018 Encounter Details Date Type Department Care Team Description 05/24/[address] [facility] Juan Lewis on Question Vascular Clinic Félix Nava MD [address] [place] [phone] [address] [place] [address] (Wo rk) Social History Tobacco Use Types [...] Additional comments: Please call Raquel his daughter [phone] Phone number to reach patient: Home number on file [phone] (home) Best Time: anytime Can we leave a detailed message on this number? YES Serena Almaguer MA documented in this encounter Plan of Treatment Not on filedocumented as of this encounter Visit Diagnoses Not on filedocumented in this encounter Care Teams Blood Bank Attendant Relationship Specialty Start Date End Date Clinic, [facility] PCP - General 05/12/[address] [place] [address] documented as of this encounter
--- OUTSIDE RECORDS SUMMARY | 2022-07-03 14:26 | XMS_ITS | Encounter Summary ---
:1940 Author Organization [place] Address [address] [place] [address] Care Team Providers Name Role Phone Kehinde Portillo Primary Care Provider [phone] Encounter Details Date Type Department Care Team [...] on filedocumented in this encounter Care Teams Funeral Car Chauffeur Relationship Specialty [facility] - [facility] [place] [address] [phone] documented as of this encounter
--- OUTSIDE RECORDS SUMMARY | 2022-07-03 14:26 | XMS_ITS | Encounter Summary ---
:1940 Author Organization [place] Address [facility] [address] Care Team Providers Name Role Phone Clinic, [facility] Primary Care Provider Reason for Visit Reason Comments Consult U/S done 05/17/2018 Encounter Details Date Type Department Care Team Description 06/03/2018 Office Visit [facility] Juan Lewis aortic Surgery Clinic MD Elijah aneurysm (AAA) without [place] [address] rupture (H) (Primary [address]) [address] [place] [address] [place], [place] [phone] [address] (Work) [phone] Social History Tobacco Use Types Packs/Day Years [...] Primary documented in this encounter Care Teams Mobile Service Rv Technician Relationship Specialty Start Date End Date [facility], [facility] PCP - General 05/12/[address] [place], [place] [phone] documented as of this encounter
--- OUTSIDE RECORDS SUMMARY | 2022-07-03 14:26 | XMS_ITS | Encounter Summary ---
:1940 Author Organization [place] Address [facility] [place] [address] Care Team Providers Name Role Phone [facility] Primary Care Provider [phone] Reason for Visit Reason Comments RECHECK pt would like to discuss Encounter Details Date Type Department Care Team Description 07/01/2018 Office Visit [facility] Juan Lweis aortic Surgery Clinic MD Elijah aneurysm (AAA) without [place] [address] rupture (H) (Primary [address]) [address] [place] [address] [place], [place] [phone] [address] (Work) [phone] Social History Tobacco Use Types Packs/Day Years [...] Primary documented in this encounter Care Teams Occupational Therapy Aide Relationship Specialty Start Date End Date [facility] PCP - General 05/12/[address] [place] [address] documented as of this encounter
--- OUTSIDE RECORDS SUMMARY | 2022-07-03 14:26 | XMS_ITS | Encounter Summary ---
:1940 Author Organization [place] Address [address] [place] [address] Care Team Providers Name Role Phone Clinic, [facility] Primary Care Provider [phone] Reason for Referral - Closed Specialty Diagnoses / Procedures Referred By Contact Refer red To Contact Diagnoses Paroxysmal atrial fibrillation (H) Taran Lugo MD Procedures Zio Patch Monitor [address] [place] [address] Referral ID Status Reason Start Date Expiration Date Visits Requ ested Visits Authorized [id number] Closed 11/25/2017 11/25/2018 1 1 ROOM CHECKER Reason for Visit (Routine) - Closed Specialty Diagnoses / Procedures Referred By Contact Refer red To Contact Cardiology Procedures Zzrh Cardiac Test Rscc ZIOPATCH MONITOR [address] [place], [place] [address] Phone: Fax: Referral ID Status Reason Start Date Expiration Date Visits Requ ested Visits Authorized [id number] Closed 11/17/2017 11/17/2018 1 1 Encounter Details Date Type Department Care Team Description 11/17/2017 Hospital Encounter [facility] Taran Lugo [facility] atrial [facility] MD fibrillation (H) [address] [employer] [address] [place], [place] [phone] Social History Tobacco Use Types Packs/Day Years [...] Per EPIC and pt, pt's daughter called [facility]'s nurse and they are aware of the situation. I called pt back and he did mail the monitor yesterday. We will see what shows up and see if Brittney would like him to redo the monitor or keep what he gets from the one mailed back. ROOM CHECKER Kiarra Rubalcava - 11/17/2017 3:49 PM CST Ziopatch heart monitor was set up. Patient stated that Dr. Quintanilla ordered the event monitor but Dr. Lugo wanted him to wear a ziopatch for 14 days. Patient was then set up with a ziopatch. ROOM CHECKER documented in this encounter Plan of Treatment Not on filedocumented as of this encounter Procedures Procedure Name Priority Date/Time Associated Diagnosis Comme nts ZIO PATCH HOLTER Routine 11/22/2017 Paroxysmal atrial Result s for this fibrillation (H) procedure a re in the results section . documented in this encounter Results Zio Patch Monitor (11/22/2017) Narrative RADIANT - 11/22/[address] [facility] [address] [place] [phone] 11/17/2017 Patient: ??Speedy Burris Stephens Chart: [id number] : ??1940 Age: ??77 year old Sex: ??male Procedure: ??ZioPatch Monitor. Asset Analyst performing hook-up: ??Kiarra Rubalcava Taran Gamboa MD CV CARDIAC SERVICES ORDERABL ES Performing Organization Address City/State/ZIP Code Phon e Number RADIANT documented in this encounter Visit Diagnoses Diagnosis Paroxysmal atrial fibrillation (H) Atrial fibrillation documented in this encounter Care Teams Electrical Lineman Relationship Specialty Start Date End Date [facility], [facility] PCP - General 05/12/[address] [place], [place] [phone] documented as of this encounter
--- OUTSIDE RECORDS SUMMARY | 2022-07-03 14:26 | XMS_ITS | Encounter Summary ---
:1940 Author Organization [place] Address [address] [place] [address] Care Team Providers Name Role Phone Clinic, [facility] Primary Care Provider [phone] Reason for Visit CV Testing - Closed Specialty Diagnoses / Procedures Referred By Contact Refer red To Contact Cardiology Diagnoses Transient cerebral ischemia, unspecified type Luis Antonio Quintanilla MD Rh Echo cc Procedures ECHO COMPLETE BUBBLE STUDY WITH OPTISON Echo Complete Bubble [address] [address] [place] [address] [address] [place] [address] Phone: Fax: Referral ID Status Reason Start Date Expiration Date Visits Requ ested Visits Authorized [id number] Closed 11/16/2017 11/16/2018 1 1 Encounter Details Date Type Department Care Team Description 11/17/2017 Hospital Encounter [facility] [place] Luis Antonio Quintanilla [facility] MD [place] ischemia, unspecified [facility] [address] type [address] [place], [place] [address] [address] [place], [place] [phone] [address] (Work) [phone] Social History Tobacco Use Types Packs/Day Years [...] Re sults for this BUBBLE STUDY WITH RAIL DIRECTOR ischemia, procedure are in OPTISON unspecified type the results section. documented in this encounter Results ECHO COMPLETE BUBBLE STUDY WITH OPTISON (11/17/2017 2:35 PM RAIL DIRECTOR) Anatomical Region Laterality Modality Echocardiography Specimen (Source) Anatomical Collection Method Collection Time Re ceived Time Location / / Volume Laterality 11/17/2017 1:54 PM RAIL DIRECTOR Narrative 11/17/2017 3:15 PM RAIL DIRECTOR [id number]^ARNAUD^LUIS ANTONIO^PIPPA [facility] Echocardiography Laboratory [address] [place] [address] Name: SPEEDY MCDUFFIE : 1940 Study Date: 11/17/2017 01:54 PM Age: 77 yrs Gender: Male Patient Location: [facility] Reason For Study: , Transient cerebral i [...] note might be different from the original. [id number]^ARNAUD^LUIS ANTONIO^PIPPA [facility] Echocardiography Laboratory [address] [place] [address] Name: SPEEDY MCDUFFIE : 1940 Study Date: 11/17/2017 01:54 PM Age: 77 yrs Gender: Male Patient Location: [facility] Reason For Study: , Transient cerebral i [...] to 2mL with Given 11/17/2017 2:45 PM RAIL DIRECTOR 3 mLs saline (OPTISON) diluted injection 3 mL 3 mL, Intravenous, ONCE, On Thu11/17/17 at 1445, For 1 dose, [facility] [id number] sodium chloride (PF) 0.9% PF flush 10 mL Given 11/17/2017 2:37 PM RAIL DIRECTOR 10 mLs 10 mL, Intravenous, ONCE, On Thu11/17/17 at 1445, For 1 dose sodium chloride bacteriostatic 0.9 % flush 30 Given 2:37 PM RAIL DIRECTOR 30 mLs mL 30 mL, Intravenous, ONCE, On Thu11/17/17 at 1445, For 1 dose documented in this encounter Care Teams Res Habilitation Assistant Relationship Specialty Start Date End Date [facility], [facility] PCP - General 05/12/[address] [place] [address] documented as of this encounter
--- OUTSIDE RECORDS SUMMARY | 2022-07-03 14:26 | XMS_ITS | Encounter Summary ---
:1940 Author Organization [place] Address [facility] [place] [address] Care Team Providers Name Role Phone Clinic, [facility] Primary Care Provider [phone] Reason for Visit Reason Onset Date Comments Clinic Care Coordination - Follow-up 10/01/2018 Encounter Details Date Type Department Care Team Description 10/01/2018 Telephone [facility] C are Coordination Vascular Clinic Félix Nava MD - Follow-up [address] [place] [address] [place] [address] [phone] Social History Tobacco Use Types Packs/Day Years [...] for any further questions. SHASTA Winkler, RN [facility] PULP Telephone Encounter - Sondra Johnson RN - [...] appointment with Dr. Lewis. SHASTA Winkler, RN [facility] Telephone Encounter - Sondra Johnson RN - 10/01/2018 1:[address] Lewis's request, contact pt's daughter Raquel with an update on care plan. Raquel updated that Dr. Lewis will contact her on Thursday with a new plan for her dad. Raquel was in agreement with this plan. SHASTA Winkler, RN [facility] PULP documented in this encounter Plan of Treatment Not on filedocumented as of this encounter Visit Diagnoses Not on filedocumented in this encounter Care Teams Independent Living Instructor Relationship Specialty Start Date End Date Kehinde Portillofield PCP - General 05/12/[address] [place] [address] documented as of this encounter
--- OUTSIDE RECORDS SUMMARY | 2022-07-03 14:26 | XMS_ITS | Encounter Summary ---
:1940 Author Organization [place] Address [facility] [place] [address] Care Team Providers Name Role Phone Clinic, [facility] Primary Care Provider [phone] Reason for Visit Reason Onset Date Comments Appointment 06/18/2018 Encounter Details Date Type Department Care Team Description 06/18/2018 Telephone [facility] Vascular Juan Delcid MD Appointment Clinic [place] [address] [place] [address] [place] [address] [phone] Social History Tobacco Use Types Packs/Day Years [...] only with Dr. Lewis on 07/01/18 in [place]. Pt had no further questions at this [...] on filedocumented in this encounter Care Teams Electric Cell Tender Relationship Specialty Start Date End Date Bandar, Kehinde Portillofield PCP - General 05/12/[address] [place] [address] documented as of this encounter
--- OUTSIDE RECORDS SUMMARY | 2022-07-03 14:26 | XMS_ITS | Encounter Summary ---
:1940 Author Organization [place] Address [address] [place] [address] Care Team Providers Name Role Phone Clinic, [facility] Primary Care Provider [phone] Reason for Visit Reason Onset Date Comments Garnett Feeder 11/23/2017 Encounter Details Date Type Department Care Team Description 11/23/2017 Telephone [facility] Erica Saldana, Garnett Feeder Clinic [place] [place] [address] [facility] [address] [place] [address] Social History Tobacco Use Types [...] Olive Saldana RN - 11/27/2017 4:02 PM LEADERSHIP INTERN Call to daughter; Ed was seen again in the ED on 11-15-17, 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 Eliquis was started by Dr Quintanilla/ Eusebia ERSHIP INTERN Telephone Encounter - Taran Lugo MD - [...] if he is on one. Thanks, qp ERSHIP INTERN Telephone Encounter - Olive Saldana RN - 11/23/2017 2:47 PM LEADERSHIP INTERN Call from daughterRaquel. States her dad wore a ZioPatch ordered by Dr Lugo to assess AF burden (ischemic/infarct areas seen in the brains). Daughter states the monitor was worn for 4 days (preferred2 weeks); it fell off she feels d/t the hair on his chest. Will note to Dr Lugo to advise re: havinganother placed. SueLangenbrunnerRN ERSHIP INTERN documented in this encounter Plan of Treatment Not on filedocumented as of this encounter Visit Diagnoses Not on filedocumented in this encounter Care Teams Dolly Driver Relationship Specialty Start Date End Date [facility], [facility] PCP - General 05/12/[address] [place] [address] documented as of this encounter
--- OUTSIDE RECORDS SUMMARY | 2022-07-03 14:26 | XMS_ITS | Encounter Summary ---
:1940 Author Organization [place] Address [address] [facility] [place] [address] Care Team Providers Name Role Phone Clinic, [facility] Primary Care Provider [phone] Reason for Visit Auth/Cert Specialty Diagnoses / Procedures Referred By Contact Refer red To Contact Surgery Diagnoses ABDOMINAL AORTIC ANEURYSM Sh Periop Services Procedures ENDOVASCULAR REPAIR ANEURYSM ABDOMINAL AORTA [address] [place] [address] Phone: Referral ID Status Reason Start Date Expiration Date Visits Requ ested Visits Authorized [id number] 1 1 Encounter Details Date Type Department Care Team Description 09/28/2018 Anesthesia Event [facility] Marylou Asher MD [facility] [address] [place] [address] [address] [place] [facility] Mattie Monahan, THEATRICAL VARIETY AGENT EXECUTIVE ASSISTANT TO GENERAL COUNSEL [address] [place] [address] [address] [place] [...] Angela ts, Mattie Farrell, of Intubation: Easy; THEATRICAL VARIETY AGENT EXECUTIVE ASSISTANT TO GENERAL COUNSEL THEATRICAL VARIETY AGENT EXECUTIVE ASSISTANT TO GENERAL COUNSEL Airway Size: 8; Cuffed; Oral; Blade Type: Glidescope; Blade Size: 4; Place by: EA EXECUTIVE ASSISTANT TO GENERAL COUNSEL; Insertion Attempts: 1; Secured at (cm)to lip: 23 cm; Breath Sounds: Equal, clear and bilateral; Dentition: Intact, Unchanged; Grade View of Cords: 1; Airway Adjuncts: [place] scope Urethral Catheter 09/28/18; 1315; No; 09/28/18 [...] Asher MD September 28, 2018 3:11 PM CING SPECIALIST Anesthesia Procedure Notes - Ling Asher MD - 09/28/2018 3:10 PM PIERCING SPECIALIST Associated Order(s): A Line Catheter Placement ARTERIAL [...] Yes IBP within 10% of NIBP: Yes CING SPECIALIST Anesthesia Preprocedure Evaluation - Ling Asher MD [...] alternatives discussed with: Patient.. Ling Asher MD CING SPECIALIST documented in this encounter Miscellaneous Notes [...] APRN CRNA September 28, 2018 3:06 PM CING SPECIALIST documented in this encounter Plan of Treatment Not on filedocumented as of this encounter Procedures Procedure Name Priority Date/Time Associated Diagnosis Comme nts ANE A LINE CATHETER Routine 09/28/2018 3:10 PM PIERCING SPECIALIST PLACEMENT Procedure Note - Ritu Asher MD [...] (CLEOCIN) infusion 900 Given 09/28/2018 1:18 PM PIERCING SPECIALIST 900 mg mg Routine, 900 mg, Intravenous, PRE-OP/PRE-PROCEDURE, Starting on Thu09/28/18 at 1101, For 1 dose, Give first dose within 1 hour PRIOR to incision., Indications: Perioperative Pharmacoprophylaxis, Pre-procedure dexmedetomidine (PRECEDEX) 4 mcg/mL bolu s Bolus 09/28/2018 2:19 PM PIERCING SPECIALIST 8 mcg CONTINUOUS PRN, Starting on Thu09/28/18 at 1216, Anesthesia Intra-op Bolus 09/28/2018 1:12 PM PIERCING SPECIALIST 12 mcg Bolus 09/28/2018 1:02 PM PIERCING SPECIALIST 8 mcg ePHEDrine injection Given 09/28/2018 1:57 PM PIERCING SPECIALIST 5 mg PRN, Starting on Thu09/28/18 at 1345, Anesthesia Intra-op Given 09/28/2018 1:49 PM PIERCING SPECIALIST 5 mg Given 09/28/2018 1:45 PM PIERCING SPECIALIST 5 mg fentaNYL (PF) (SUBLIMAZE) injection Given 09/28/2018 1:34 PM PIERCING SPECIALIST 50 mcg PRN, Administer over 3-5 Minutes, Starting on Thu09/28/18 at 1302, Anesthesia Intra-op Given 09/28/2018 1:02 PM PIERCING SPECIALIST 50 mcg lactated ringers infusion New Bag 09/28/2018 1:11 PM PIERCING SPECIALIST CONTINUOUS PRN, Anesthesia Intra-op, Starting on Thu09/28/18 at 1311, Until Thu09/28/18 at 1506 lidocaine 2% injection (MDV) Given 09/28/2018 1:02 PM PIERCING SPECIALIST 100 mg PRN, Starting on Thu09/28/18 at 1302, Anesthesia Intra-op phenylephrine 0.2 mg/mL Rate/Dose Change 09/28/2018 2:17 0.1 mcg/kg /min 2.54 mL/hr (mcg/kg/min) drip PM PIERCING SPECIALIST CONTINUOUS PRN, Starting on Thu09/28/18 at 1406, Anesthesia Intra-op Rate/Dose Change 09/28/2018 2:12 PM PIERCING SPECIALIST 0.15 mcg/kg/min 3.82 mL/hr New Bag 09/28/2018 2:06 PM PIERCING SPECIALIST 0.25 mcg/kg/min 6.36 mL/hr propofol (DIPRIVAN) infusion New Bag 09/28/2018 1:11 PM 35 mcg/kg/min 17.8 mL/hr Intravenous, CONTINUOUS PRN, PIERCING SPECIALIST Starting on Thu09/28/18 at 1311, Anesthesia Intra-op propofol (DIPRIVAN) injection 10 mg/mL v ial Given 09/28/2018 1:02 PM PIERCING SPECIALIST 200 mg PRN, Starting on Thu09/28/18 at 1302, Anesthesia Intra-op rocuronium (ZEMURON) injection Given 09/28/2018 1:02 PM PIERCING SPECIALIST 50 mg PRN, Starting on Thu09/28/18 at 1302, Anesthesia Intra-op vecuronium (NORCURON) injection Given 09/28/2018 2:17 PM PIERCING SPECIALIST 2 mg PRN, Starting on Thu09/28/18 at 1334, Anesthesia Intra-op Given 09/28/2018 1:34 PM PIERCING SPECIALIST 2 mg documented in this encounter Care Teams Drum Plater Relationship Specialty Start Date End Date Clinic, Kehinde Portillofield PCP - General 05/12/17 [address] [phone] documented as of this encounter
--- OUTSIDE RECORDS SUMMARY | 2022-07-03 14:26 | XMS_ITS | Encounter Summary ---
:1940 Author Organization [place] Address [address] [place] [id number] Care Team Providers Name Role Phone Clinic, [facility] Primary Care Provider [phone] Reason for Visit Reason Onset Date Comments Referral 05/21/2018 Encounter Details Date Type Department Care Team Description 05/21/2018 [facility] Cindy Taylor, process maintenance technician [address] [place] [address] [address] Social History Tobacco Use Types [...] 05/21/2018 4:03 PM CDT Pt referred to [facility] via fax by Marija Ramirez MD for known AAA increased in size to 4.4X4.6 cm- pt has known about AAA for past 55 years and has monitored it with annual US. US done on 05/17/18 in care [facility] from [facility]. Pt needs to be scheduled for consult with Dr. Lewis. Will route to scheduling to coordinate an appointment within the next week. SHASTA Chand, RN documented in this encounter Plan of Treatment Not on filedocumented as of this encounter Visit Diagnoses Not on filedocumented in this encounter Care Teams Decision Support Analyst Relationship Specialty Start Date End Date [facility], [facility] PCP - General 05/12/[address] [place] [id number] documented as of this encounter
--- OUTSIDE RECORDS SUMMARY | 2022-07-03 14:26 | XMS_ITS | Encounter Summary ---
:1940 Author Organization [place] Address [address] [place] [id number] Care Team Providers Name Role Phone Clinic, [facility] Primary Care Provider [phone] Reason for Referral Diagnostic Imaging CT Scan - Closed Specialty Diagnoses / Procedures Referred By Contact Refer red To Contact Diagnoses Abdominal aortic aneurysm (H) Juan Lewis MD Procedures CTA Abdomen Pelvis with Contrast [address] [place] [address] Referral ID Status Reason Start Date Expiration Date Visits Requ ested Visits Authorized [id number] Closed 06/03/2018 06/03/2019 1 1 Reason for Visit Diagnostic Imaging CT Scan - Closed Specialty Diagnoses / Procedures Referred By Contact Refer red To Contact Diagnoses Abdominal aortic aneurysm (H) Juan Lewis MD Procedures CTA Abdomen Pelvis with Contrast [address] [place] [address] Referral ID Status Reason Start Date Expiration Date Visits Requ ested Visits Authorized [id number] Closed 06/03/2018 06/03/2019 1 1 Encounter Details Date Type Department Care Team Description 06/07/2018 Hospital Encounter [facility] Juan Lewis Ab dominal aortic [facility] MD Elijah aneurysm (H) [address] [place] [address] [id number] [place] [address] [phone] Social History Tobacco Use Types Packs/Day Years [...] dose documented in this encounter Care Teams Event Security Officer Relationship Specialty Start Date End Date Kehinde Portillo PCP - General 05/12/[address] [place] [id number] documented as of this encounter
--- OUTSIDE RECORDS SUMMARY | 2022-07-03 14:26 | XMS_ITS | Encounter Summary ---
:1940 Author Organization [place] Address [address] [facility] [place] [address] Care Team Providers Name Role Phone [facility], [facility] Primary Care Provider [phone] Reason for Referral Diagnostic Imaging CT Scan - Closed Specialty Diagnoses / Procedures Referred By Contact Refer red To Contact Diagnoses Abdominal aortic aneurysm (H) Juan Lewis MD Procedures CTA Abdomen Pelvis with Contrast [address] [place] [address] Referral ID Status Reason Start Date Expiration Date Visits Requ ested Visits Authorized [id number] Closed 06/03/2018 06/03/2019 1 1 Encounter Details Date Type Department Care Team Description 06/03/2018 Orders Only [facility] Juan Lewis Abdompepe l aortic [facility] Félix Nava MD aneurysm (H) (Primary [address] ) [address] [place] [address] [place] [id number] Social History Tobacco Use Types Packs/Day Years [...] pture documented in this encounter Care Teams Photogrammetric Compilation Specialist Relationship Specialty Start Date End Date Bandar, Kehinde Portillofield PCP - General 05/12/[address] [place] [id number] documented as of this encounter
--- OUTSIDE RECORDS SUMMARY | 2022-07-03 14:26 | XMS_ITS | Encounter Summary ---
:1940 Author Organization Long [place] Address [facility] [place] [address] Care Team Providers Name Role Phone Clinic, [facility] Primary Care Provider [phone] Reason for Visit Auth/Cert Specialty Diagnoses / Procedures Referred By Contact Refer red To Contact Surgery Diagnoses ABDOMINAL AORTIC ANEURYSM Sh Periop Services Procedures ENDOVASCULAR REPAIR ANEURYSM ABDOMINAL AORTA [address] [place] [address] Phone: Referral ID Status Reason Start Date Expiration Date Visits Requ ested Visits Authorized [id number] 1 1 Encounter Details Date Type Department Care Team Description 09/28/[facility] [address] [place] [id number] AAA (abdominal 09/29/2018 Encounter Carrie Abdi MD [address] [place] [id number] aortic aneurysm) Intermediate Care (H) [address] [...] Comments Blood Pressure 135/74 09/29/2018 11:18 AM CNC TECHNICIAN Pulse 48 09/29/2018 11:18 AM CNC TECHNICIAN Temperature 36.5 ??C (97.7 ??F) 09/29/2018 11:18 AM CNC TECHNICIAN Respiratory Rate 16 09/29/2018 11:18 AM CNC TECHNICIAN Oxygen Saturation 95% 09/29/2018 11:18 AM CNC TECHNICIAN Inhaled Oxygen Concentration - - Weight 85.2 kg (187 lb 12.8 oz) 09/29/2018 5:00 AM CNC TECHNICIAN Height 170.2 cm (5' 7) 09/28/2018 11:21 AM CNC TECHNICIAN Body Mass Index 29.41 09/28/2018 11:21 AM CNC TECHNICIAN documented in this encounter Discharge Summaries [...] MD MT: RIO Name: SPEEDY MCDUFFIE Account: [id number] : 1940 Admit Date: 09/28/2018 Discharge Date: 09/29/2018 Document: [id number] cc: Primary TECHNICIAN documented in this encounter Medications at [...] Levi MD - 09/29/2018 9:32 AM CST [facility] Vascular Medicine Progress Note Date of [...] to be a small right pleural effusion. ELAIAN HUNTLEY MD IR Abdominal Endovascular Stent Graft [...] aorta. Exchange was made for a 6 Libyan vascular sheath. 18-gauge singlewall needle was then advanced into the left common femoral artery through which a 0.035 inch Bentson wire was advanced in the abdominal aorta. Exchange is made for a 6 Libyan vascular sheath. Via the left groin access, a 5 Libyan pigtail catheter was advanced over the Bentson wire into the abdominal aorta. Via the right groin, a 5 Libyan pigtail catheter was advanced over the Bentson [...] concerns during business hours M-F, call the [facility] at [phone] to have the rounding/railway station manager Vascular Medicine (NOT VASCULAR SURGERY) MD paged. - After business hours M-F,??for medical concerns on this patient, please page hospitalist staff. - For vascular surgical questions, please page the appropriate surgeon (primary vascular surgeon or railway station manager vascular surgeon) based upon the time of day. Lambert Fontanez PA-C Zoltan Londono MD - 09/29/2018 8:19 AM CST [facility] Vascular Surgery Progress Note Assessment & [...] concerns during business hours M-F, call the [facility] at [phone] to have the rounding/railway station manager Vascular Medicine (NOT VASCULAR SURGERY) MD paged. - After business hours M-F,??for medical concerns on this patient, please page hospitalist staff. - For vascular surgical questions, please page the appropriate surgeon (primary vascular surgeon or railway station manager vascular surgeon) based upon the time of day. Brandie Barrera PA-C Michelle Jones - 09/28/2018 10:42 AM CST Admission medication history interview status for the 09/28/2018 admission is complete. See [facility] admission navigator for prior to admission medications Medication history source reliability:Good Medication history interview source(s):Patient Medication history resources (including written lists, pill bottles, clinic record):Patient mailed in his medication list prior to surgery Primary pharmacy.[facility] Additional medication history information not noted on [employer] med list :None Time spent in this [...] at HS Yes Unknown, Entered By History TECHNICIAN documented in this encounter Procedure Notes [...] for procedural details. Provider name: Jacqui Odom Electric Motor Winder(s):None TECHNICIAN documented in this encounter Consult Notes [...] in his throat. PENICILLINS cause a rash. [facility] has an unspecified allergy associated with its use. PREVIOUS MEDICAL HISTORY: 1. Hyperlipidemia. 2. Hypertension. 3. Contact dermatitis. 4. AAA. 5. Colonic polyps. 6. Lumbar spinal stenosis. 7. Impaired fasting glucose. 8. Stage III chronic kidney disease. 9. Paroxysmal atrial fibrillation. PREVIOUS SURGICAL HISTORY: 1. Cervical fusion C7, December 1978. 2. Cervical fusion, Dr. Donahue at [facility] 02/18/2006. 3. Hardware removal and matrixectomy, right great toe, 09/30/2012. 4. Lumbar fusion 10/1996, L5-S1. 5. Lumbar fusion 1999, L4. 6. 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 7. Laparoscopic appendectomy, 01/2009. SOCIAL HISTORY: The patient is . He has 2 children. 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 He quit smoking [id number] after a 1/4 pack per day use [...] MD MT: JACKSON Name: SPEEDY MCDUFFIE Account: [id number] : 1940 Consult Date: 09/28/2018 Document: [id number] TECHNICIAN documented in this encounter Miscellaneous Notes [...] MD MT: JACKSON Name: SPEEDY MCDUFFIE Account: [id number] : 1940 Procedure Date: 09/28/2018 Document: [id number] TECHNICIAN Plan of Care - Griselda Dinero [...] will continue to follow up with this. TECHNICIAN Provider Notification - Levi Hollingsworth MD - 09/29/2018 12:46 AM CNC TECHNICIAN Brief update: Paged re: request for home melatonin 10 mg melatonin HS PRN added. Levi Hollingsworth MD 12:47 AM TECHNICIAN Plan of Care - Ira South RN - 09/28/2018 11:11 PM CST A&O, VSS, Lung sounds clear, Bowel sounds active,adeqaute urine output, incision right & letgroin CDI Ambulates assist 1, Regular diet, tolerating liquids with poor appetite. Pain controlled by scheduled tylenol and PRN oxycodone. TECHNICIAN Plan of Care - Vandana Smith RN - 09/28/2018 7:22 PM CST Pt is came from PACU.Groin site dressing clean dry and intact.Not void yet.Ice pack given.IVF running .will monitor. TECHNICIAN documented in this encounter Plan of Treatment Not on filedocumented as of this encounter Procedures Procedure Name Priority Date/Time Associated Comments Diagnosis CTA CHEST WITH Routine 09/29/2018 11:38 Results f or this CONTRAST AM CNC TECHNICIAN procedure are i n the results section. BASIC METABOLIC PANEL Timed 09/29/2018 10:06 AAA (abdominal Results for this AM CNC TECHNICIAN aortic aneurysm) procedure a re in (H) the results section. GLUCOSE BY METER Routine 09/29/2018 6:00 AM AAA (abdominal Res ults for this CNC TECHNICIAN aortic aneurysm) procedure a re in (H) the results section. ANGIOGRAM Routine 09/28/2018 2:39 PM CNC TECHNICIAN IR ABDOMINAL Routine 09/28/2018 2:17 PM AAA (abdominal Results for this ENDOVASCULAR STENT CNC TECHNICIAN aortic aneurysm) proce dure are in GRAFT (H) the results section. EKG 12-LEAD, TRACING STAT 09/28/2018 11:42 Res ults for this ONLY AM CNC TECHNICIAN procedure are i n the results section. XR CHEST 1 VIEW STAT 09/28/2018 11:21 Results for this AM CNC TECHNICIAN procedure are i n the results section. BLOOD COMPONENT Routine 09/28/2018 11:11 AAA (abdominal Result s for this AM CNC TECHNICIAN aortic aneurysm) procedure a re in (H) the results section. BLOOD COMPONENT Routine 09/28/2018 11:11 AAA (abdominal Result s for this AM CNC TECHNICIAN aortic aneurysm) procedure a re in (H) the results section. POTASSIUM STAT 09/28/2018 11:11 AAA (abdominal Results f or this AM CNC TECHNICIAN aortic aneurysm) procedure a re in (H) the results section. LIPID PROFILE STAT 09/28/2018 11:11 AAA (abdominal Results for this AM CNC TECHNICIAN aortic aneurysm) procedure a re in (H) the results section. HEMOGLOBIN A1C STAT 09/28/2018 11:11 AAA (abdominal Results for this AM CNC TECHNICIAN aortic aneurysm) procedure a re in (H) the results section. CREATININE STAT 09/28/2018 11:11 AAA (abdominal Results f or this AM CNC TECHNICIAN aortic aneurysm) procedure a re in (H) the results section. ABO/RH TYPE AND STAT 09/28/2018 11:11 AAA (abdominal Result s for this SCREEN AM CNC TECHNICIAN aortic aneurysm) procedure a re in (H) the results section. LAB RESULT - HIM SCAN 09/24/2018 12:00 AM CNC TECHNICIAN EKG CARDIAC - HIM 09/24/2018 12:00 SCAN AM CNC TECHNICIAN documented in this encounter Results CTA Chest with Contrast (09/29/2018 11:38 AM CNC TECHNICIAN) Anatomical Region Laterality Modality Chest, SUBRAD IR PROCEDURE, UMP CT CTA, RAD CT Computed Tomography Specimen (Source) Anatomical Location Collection Method / Collectio n Time Received Time / Laterality Volume Impressions 09/29/2018 4:30 PM CNC TECHNICIAN IMPRESSION: Tortuous descending thoracic aorta with bilobed aneurysmal dilatation measuring up to 50 mm in diameter in the distal descending aorta. JACQUI ODOM MD Narrative 09/29/2018 4:30 PM CNC TECHNICIAN PROCEDURE: CTA of the chest DATE [...] ORDERABLES Basic metabolic panel (09/29/2018 10:06 AM CNC TECHNICIAN) [facility] Time Signature Sodium 141 133 - 144 09/29/2018 [facility] mmol/L 10:31 AM [facility] Potassium 4.5 3.4 - 5.3 09/29/2018 [facility] mmol/L 10:31 AM [facility] Chloride 109 94 - 109 09/29/2018 [facility] mmol/L 10:31 AM [facility] Carbon Dioxide 25 20 - 32 09/29/2018 [place] mmol/L 10:31 AM [facility] Anion Gap 7 3 - 14 09/29/2018 [place] mmol/L 10:31 AM [facility] Glucose 97 70 - 99 09/29/2018 [place] mg/dL 10:31 AM [facility] Urea Nitrogen 18 7 - 30 09/29/2018 [place] mg/dL 10:31 AM [facility] Creatinine 1.25 0.66 - 09/29/2018 [place] 1.25 10:31 AM [facility] mg/[facility] GFR Estimate Not Calculated >60 09/29/2018 [place] mL/min/1. 10:[address] GFR Estimate Not Calculated >60 09/29/2018 [place] If Black mL/min/1. 10:[address] Calcium 8.8 8.5 - 09/29/2018 [place] 10.1 10:31 AM [facility] mg/dL [facility] Specimen Anatomical Collection Method Collection Time Receive d Time (Source) Location / / Volume Laterality Blood specimen 09/29/2018 10:06 8 (specimen) AM CNC TECHNICIAN 10:07 AM CNC TECHNICIAN Pam Conde PA-C LAB - BLOOD ORDERABLES Performing Organization Address City/State/ZIP Code Phon e Number M [facility] [address] [place] [address] [phone] [facility] [address] [place] [address] [address], [facility] [phone] (ABNORMAL) Glucose by meter (09/29/2018 6:00 AM CNC TECHNICIAN) P athologist Signature Glucose 109 (H) 70 - 99 09/29/2018 [facility] mg/dL 6:18 AM CNC TECHNICIAN TEST, GLUCOSE Specimen Anatomical Collection Method Collection Time Receive d Time (Source) Location / / Volume Laterality 09/29/2018 6:00 AM 8 6:18 CNC TECHNICIAN AM CNC TECHNICIAN Juan Vásquez MD LAB - BEAKER POCT Performing Organization Address City/State/ZIP Code Phon e Number [facility] POINT OF CARE TEST, GLUCOSE POINT OF CARE TEST, GLUCOSE IR Abdominal Endovascular Stent Graft (09/28/2018 2:17 PM CNC TECHNICIAN) Anatomical Region Laterality Modality Abdomen/Pelvis Radio Fluoroscopy Specimen (Source) Anatomical Location Collection Method / Collectio n Time Received Time / Laterality Volume Impressions 09/29/2018 8:52 AM CNC TECHNICIAN Impression: 1. Thoracic and abdominal angiography de monstrating previously unknown thoracic aortic aneurysm as well as the known abdominal aortic aneurysm 2. Endovascular aneurysm repair was abor clover to allow for further investigation of the thoracic aortic ane urysm and future surgical planning. JACQUI ODOM MD Narrative 09/29/2018 8:52 AM CNC TECHNICIAN PROCEDURE(S): 1. Thoracic and abdominal aortic [...] aneurysm repair. A timeout was performed per [facility] protocol policy to confirm the correct [...] aorta. Exchange was made for a 6 Libyan vascula r sheath. 18-gauge singlewall needle was then advanced into the left c ommon femoral artery through which a 0.035 inch Bentson wire was adva nced in the abdominal aorta. Exchange is made for a 6 Libyan vascular sheath. Via the left groin access, a 5 Libyan pigtail catheter was advanced over the Bentson wire into the abdominal aorta. Via the right groin, a 5 Libyan pigtail catheter was advanced over the Bentson [...] aneurysm repair. A timeout was performed per [facility] protocol policy to confirm the correct patient, site and pr ocedure to be performed. Please note that due to the complex natu re of the procedure, a multi-disciplinary approach was used [facility] involved Mili Vásquez and Lei functioning as co-surgeons for t his procedure. Bilateral common femoral arteries were s urgically exposed, see separate operative report for details. A n 18-gauge singlewall needle was then inserted into the right common femoral artery through which a 0.035 inch Bentson wire was advanced int o the abdominal aorta. Exchange was made for a 6 Libyan vascula r sheath. 18-gauge singlewall needle was then advanced into the left c ommon femoral artery through which a 0.035 inch Bentson wire was adva nced in the abdominal aorta. Exchange is made for a 6 Libyan vascular sheath. Via the left groin access, a 5 Libyan pigtail catheter was advanced over the Bentson wire into the abdominal aorta. Via the right groin, a 5 Libyan pigtail catheter was advanced over the Bentson [...] EKG 12-lead, tracing only (09/28/2018 11:42 AM CNC TECHNICIAN) [facility] Method Time Signature Interpretation ECG Click View RADIOLOGY Image link RESULTS to view waveform and result Specimen (Source) Anatomical Collection Method Collection Time Re ceived Time Location / / Volume Laterality 09/28/2018 11:42 AM CNC TECHNICIAN Juan Vásquez MD ECG ORDERABLES Performing Organization Address City/State/ZIP Code Phon e Number RADIOLOGY RESULTS XR Chest 1 View (09/28/2018 11:21 AM CNC TECHNICIAN) Anatomical Region Laterality Modality Chest Digital Radiography Specimen (Source) Anatomical Location Collection Method / Collectio n Time Received Time / Laterality Volume Impressions 09/28/2018 1:09 PM CNC TECHNICIAN IMPRESSION: Heart size similar to prior. The thoracic aorta is elongated. No airspace consolidation or pneumothorax. There appears to be a small right pleural effusion. ELAINA HUNTLEY MD Narrative 09/28/2018 1:09 PM CNC TECHNICIAN CHEST ONE VIEW ??09/28/2018 11:21 AM [...] ORDER BRAYDEN Blood component (09/28/2018 11:11 AM CNC TECHNICIAN) [facility] Method Time Signature Unit Number [id number] 09/28/2018 [facility] 1:21 PM [facility] Blood Red Blood 09/28/2018 [facility] Component Cells 1:21 PM [facility] Reduced Division 00 09/28/2018 [facility] Number 1:21 PM [facility] Status of No longer 10/02/2018 [facility] Unit available 3:00 AM [facility] 10/02/2018 HOSPITAL 0300 Blood Product [id number] 09/28/2018 [facility] Code 1:21 PM [facility] Unit Status [facility] Specimen Anatomical Collection Method Collection Time Receive d Time (Source) Location / / Volume Laterality 09/28/2018 11:11 09/28/2018 AM CNC TECHNICIAN 11:44 AM CNC TECHNICIAN Juan Vásquez MD LABORATORY Performing Organization Address City/State/ZIP Code Phon e Number M [facility] [address] [place], [place] [address] [facility] [address] [place] [address], [facility] [address], [place] [address], [facility] [phone] Blood component (09/28/2018 11:11 AM CNC TECHNICIAN) Patholo gist Method Time Signature Unit Number [id number] 09/28/2018 [facility] 1:21 PM CNC TECHNICIAN [facility] Blood Red Blood 09/28/2018 [facility] Component Cells 1:21 PM CNC TECHNICIAN [facility] Reduced Division 00 09/28/2018 [facility] Number 1:21 PM [facility] Status of No longer 10/02/2018 [facility] Unit available 3:00 AM [facility] 10/02/2018 HOSPITAL 0300 Blood Product [id number] 09/28/2018 [facility] Code 1:21 PM [facility] Unit Status [facility] Specimen Anatomical Collection Method Collection Time Receive d Time (Source) Location / / Volume Laterality 09/28/2018 11:11 09/28/2018 AM CNC TECHNICIAN 11:44 AM CNC TECHNICIAN Juan Vásquez MD LABORATORY Performing Organization Address City/State/ZIP Code Phon e Number M [facility] [address] [place], [place] [address] [facility] [address] [place] [address], [facility] [phone] [facility] [address] [place], [place] [address], [facility] [phone] Potassium (09/28/2018 11:11 AM CNC TECHNICIAN) P athologist Signature Potassium 4.0 3.4 - 5.3 09/28/2018 [place] mmol/L 12:22 PM CNC TECHNICIAN [facility] Specimen Anatomical Collection Method Collection Time Receive d Time (Source) Location / / Volume Laterality Blood specimen 09/28/2018 11:11 12/11/201 8 (specimen) AM CNC TECHNICIAN 11:43 AM CNC TECHNICIAN Ramiro Card MD LAB - BLOOD ORDERABLES Performing Organization Address City/State/ZIP Code Phon e Number M [facility] [address] [place] [address] [facility] [address] [place] [address], [place] [phone] Lipid panel (09/28/2018 11:11 AM CNC TECHNICIAN) Analysis Performed At [facility] logist Time Signature Cholesterol 143 <200 mg/dL 09/28/2018 [facility] 12:22 PM [facility] Triglycerides 115 <150 mg/dL 09/28/2018 [facility] 12:24 PM [facility] HDL Cholesterol 68 >39 mg/dL 09/28/2018 [facility] 12:24 PM [facility] LDL Cholesterol 52 <100 mg/dL 09/28/2018 [facility] Calculated 12:24 PM [facility] Comment: Desirable: <100 mg/dl Non HDL Cholesterol 75 <130 mg/dL 09/28/2018 12:24 PM [facility] Specimen Anatomical Collection Method Collection Time Receive d Time (Source) Location / / Volume Laterality Blood specimen 09/28/2018 11:11 8 (specimen) AM CNC TECHNICIAN 11:43 AM CNC TECHNICIAN Juan Vásquez MD LAB - BLOOD ORDERABLES Performing Organization Address City/State/ZIP Code Phon e Number M [facility] [address] [place] [address] [facility] [address] [place] [address], [place] [phone] (ABNORMAL) ABO/Rh type and screen (09/28/2018 11:11 AM CNC TECHNICIAN) Component Value Ref Test Analysis Performed At [facility] gist Range Method Time Signature Units Ordered 2 09/28/2018 [facility] 11:54 AM [facility] ABO O 09/28/2018 [facility] 12:28 PM [facility] RH(D) Pos [facility] Antibody Screen Pos (A) 09/28/2018 [facility] 12:28 PM [facility] Test Valid Only [place] 09/28/2018 [facility] At [facility] 11:47 AM [facility] Specimen Expires 10/01/2018 09/28/2018 [facility] 11:47 AM [facility] Crossmatch Red Blood Cells 09/28/2018 [facility] 11:54 AM [facility] Blood Bank Delay in availability of Red Blood Cells called to 09/28/2018 [facility] Comment Esme in Preop at 1228 re 12:37 PM [facility] Antibody ANTI-Gustine 09/28/2018 [facility] Identification 1:26 PM [facility] Antigen Type Gustine Negative 09/28/2018 [facility] 1:26 PM [facility] Specimen Anatomical Collection Method Collection Time Receive d Time (Source) Location / / Volume Laterality Blood specimen 09/28/2018 11:11 8 (specimen) AM CNC TECHNICIAN 11:44 AM CNC TECHNICIAN Juan Vásquez MD LAB - BLOOD BANK TEST ORDER Performing Organization Address City/State/ZIP Code Phon e Number M [facility] [address] [address] [facility] [address] [place] [address], [place] [phone] (ABNORMAL) Hemoglobin A1c (09/28/2018 11:11 AM CNC TECHNICIAN) P athologist Signature Hemoglobin A1C 5.7 (H) 0 - 5.6 % 09/28/2018 [facility] 12:08 PM [facility] Comment: Normal <5.7% Prediabetes 5.7-6.4% ??Diab etes 6.5% or higher - adopted from ADA consensus guidelines. Specimen Anatomical Collection Method Collection Time Receive d Time (Source) Location / / Volume Laterality Blood specimen 09/28/2018 11:11 8 (specimen) AM CNC TECHNICIAN 11:43 AM CNC TECHNICIAN Juan Vásquez MD LAB - BLOOD ORDERABLES Performing Organization Address City/State/ZIP Code Phon e Number M [facility] [address] [address] [phone] [facility] [address] [place] [address], [place] [phone] (ABNORMAL) Creatinine (09/28/2018 11:11 AM CNC TECHNICIAN) P athologist Signature Creatinine 1.46 (H) 0.66 - 09/28/2018 [place] 1.25 mg/dL 12:22 PM [facility] GFR Estimate 47 (L) >60 09/28/2018 [place] mL/min/1.7 12:[address] Comment: Non GFR Calc GFR Estimate If 57 (L) >60 mL/min/1.7m2 09/28/2018 12:22 PM [facility] Comment: GFR Calc Specimen Anatomical Collection Method Collection Time Receive d Time (Source) Location / / Volume Laterality Blood specimen 09/28/2018 11:11 8 (specimen) AM CNC TECHNICIAN 11:43 AM CNC TECHNICIAN Juan Vásquez MD LAB - BLOOD ORDERABLES Performing Organization Address City/State/ZIP Code Phon e Number M [facility] [address] [address] [facility] [address] [address], [place] [phone] LAB RESULT - HIM SCAN (09/24/2018 12:00 AM CNC TECHNICIAN) Specimen (Source) Anatomical Location Collection Method / Collectio n Time Received Time / Laterality Volume 09/24/2018 Narrative This result has an attachment that is no t available. Provider Outside NON-BEAKER LAB TESTING EKG CARDIAC - HIM SCAN (09/24/2018 12:00 AM CNC TECHNICIAN) Specimen (Source) Anatomical Location Collection Method [...] (TYLENOL) tablet 975 Given 09/29/2018 5:41 AM CNC TECHNICIAN 975 mg mg 975 mg, Oral, EVERY 8 HOURS, First dose on Thu09/28/18 at 2200, For 3 days, Do not use if patient has an active opioid/acetaminophen combined analgesic product ordered for pain. Maximum acetaminophen dose from all sources = 75 mg/kg/day not to exceed 4 grams/day., Post-procedure Given 09/28/2018 9:50 PM CNC TECHNICIAN 975 mg apixaban ANTICOAGULANT (ELIQUIS) tablet 2.5 Given 09/29/2018 8:22 AM CNC TECHNICIAN 2.5 mg mg 2.5 mg, Oral, 2 TIMES DAILY, First dose on Thu09/29/18 at 0900 atorvastatin (LIPITOR) tablet 40 mg Given 09/28/2018 9:50 PM CNC TECHNICIAN 40 mg 40 mg, Oral, EVERY EVENING, First dose on Thu09/28/18 at 2000 ceFAZolin (ANCEF) intermittent infusion Given 09/29/2018 5:4 1 AM CNC TECHNICIAN 2 g 200 mL/hr 2 g in 100 mL dextrose PRE-MIX Routine, 2 g, Intravenous, EVERY 8 HOURS, First dose on Thu09/28/18 at 2100, For 2 doses, Indications: Perioperative Pharmacoprophylaxis, Post-procedure Given 09/28/2018 9:55 PM CNC TECHNICIAN 2 g 200 mL/hr fentaNYL (PF) (SUBLIMAZE) injection 100 mcg Given 09/28/2018 12:07 PM CNC TECHNICIAN 50 mcg 100 mcg, Intravenous, ONCE, On Thu09/28/18 at 1100, For 1 dose, For ordered IV doses 1-100 mcg give IV Push undiluted over a minimum of 3-5 minutes. fentaNYL (PF) (SUBLIMAZE) injection 25-5 0 mcg Given 09/28/2018 4:04 PM CNC TECHNICIAN 25 mcg 25-50 mcg, Intravenous, EVERY 2 [...] 3-5 minutes., PACU Given 09/28/2018 3:50 PM CNC TECHNICIAN 25 mcg Given 09/28/2018 3:41 PM CNC TECHNICIAN 25 mcg hydrALAZINE (APRESOLINE) injection 2.5-5 mg Given 09/28/2018 4:10 PM CNC TECHNICIAN 5 mg 2.5-5 mg, Intravenous, EVERY 10 [...] solution 80 mL Given 09/29/2018 11:37 AM CNC TECHNICIAN 80 mLs 80 mL, Intravenous, ONCE, On Thu09/29/18 at 1130, For 1 dose lactated ringers infusion New Bag 09/28/2018 12:16 PM CNC TECHNICIAN 25 mL/hr at 25 mL/hr, Intravenous, CONTINUOUS, IF patient NOT on dialysis., Pre-procedure, Starting on Thu09/28/18 at 1115, Until Thu09/28/18 at 1457 lactated ringers infusion New Bag 09/29/2018 2:48 AM CNC TECHNICIAN 125 mL/hr at 125 mL/hr, Intravenous, CONTINUOUS, NOT for patient on renal dialysis. Saline lock after 1 liter if taking PO fluids., Post-procedure, Starting on Thu09/28/18 at 1800, Until Thu09/29/18 at 1753 Rate/Dose Verify 09/29/2018 12:39 AM CNC TECHNICIAN 125 mL/hr New Bag 09/28/2018 6:31 PM CNC TECHNICIAN 125 mL/hr lidocaine 1 % 1 mL Given 09/28/2018 12:00 PM CNC TECHNICIAN 0.3 mLs 1 mL, Other, EVERY 1 HOUR PRN, mild pain with VAD insertion or accessing implanted port, Starting on Thu09/28/18 at 1101, Do NOT give if patient has a history of allergy to any local anesthetic or any louie product. MAX dose 1 mL subcutaneous OR intradermal in divided doses., Pre-procedure lisinopril (PRINIVIL/ZESTRIL) tablet 5 m g Given 09/29/2018 8:21 AM CNC TECHNICIAN 5 mg 5 mg, Oral, 2 TIMES DAILY, First dose on Thu09/28/18 at 2100 Given 09/28/2018 9:52 PM CNC TECHNICIAN 5 mg melatonin tablet 10 mg Given 09/29/2018 2:48 AM CNC TECHNICIAN 10 mg 10 mg, Oral, AT BEDTIME PRN, sleep, Starting on Thu09/29/18 at 0044 metoprolol tartrate (LOPRESSOR) tablet 5 0 mg Given 09/29/2018 8:21 AM CNC TECHNICIAN 50 mg 50 mg, Oral, 2 TIMES DAILY, First dose on Thu09/28/18 at 2100 Given 09/28/2018 9:50 PM CNC TECHNICIAN 50 mg midazolam (VERSED) injection 2 mg Given 09/28/2018 12:10 PM CNC TECHNICIAN 1 mg 2 mg, Intravenous, ONCE, On Thu09/28/18 at 1100, For 1 dose, For ordered IV doses 0.1-2.5 mg give IV Push slowly titrated over a minimum of 2 minutes. Dilute each 1mg in 4mL of NS. Given 09/28/2018 12:07 PM CNC TECHNICIAN 1 mg oxyCODONE (ROXICODONE) tablet 5 mg Given 09/28/2018 10:49 PM CNC TECHNICIAN 5 mg 5 mg, Oral, EVERY 3 HOURS PRN, other, pain control or improvement in physical function. Hold dose for analgesic side effects., Starting on Thu09/28/18 at 1751, Notify provider to assess for uncontrolled pain or analgesic side effects. Hold while on WELLNESS GUIDE or with regular IV opioid dosing. Maximum total is 40 mg in 24 hours., Post-procedure Saline flush Given 09/29/2018 11:37 AM CNC TECHNICIAN 80 mLs Intravenous, 80 mL, ONCE, On Thu09/29/18 at 1130, For 1 dose sodium chloride (PF) 0.9% PF flush 3 mL Given 09/28/2018 9:58 PM CNC TECHNICIAN 3 mLs 3 mL, Intracatheter, EVERY 8 HOURS, First dose on Thu09/28/18 at 2200, And Q1H PRN, to lock peripheral IV dormant line., Post-procedure terazosin (HYTRIN) capsule 5 mg Given 09/28/2018 10:49 PM CNC TECHNICIAN 5 mg 5 mg, Oral, AT BEDTIME, First dose on Thu09/28/18 at 2200 documented in this encounter Active and Recently Administered Medications Times are shown in CNC TECHNICIAN. Scheduled Medication Order 09/27/2018 09/28/2018 09/29/2018 [...] [id number] (Given - Provider: Mattie Marmolejo APRN STUDENT SERVICES COORDINATOR) 900 mg, Intravenous, PRE-OP/PRE-PROCEDUR E, Starting Thu09/28/18 [...] Volume Adjustment - Provider: Mattie Marmolejo APRN STUDENT SERVICES COORDINATOR)1432 (Anesthesia Volume Adjustment - Provider: Mattie Marmolejo APRN STUDENT SERVICES COORDINATOR) at 25 mL/hr, Intravenous, CONTINUOUS, IF patient [...] analgesic side effects. Hold whil e on WELLNESS GUIDE or with regular IV opioid dosing. Maximum total is 40 mg in 24 hours., Post-procedure sodium chloride (PF) 0.9% PF flush 3 mL 3 mL, Intracatheter, EVERY 1 HOUR PRN, l ine flush, for peripheral IV flush post IV meds, Starting Thu09/28/18 at 1751, Post-procedure documented in this encounter Care Teams Well Drill Operator Rotary Drill Relationship Specialty Start Date End Date [facility], [facility] PCP - General 05/12/[address] [place] [address] documented as of this encounter
--- OUTSIDE RECORDS SUMMARY | 2022-07-03 14:27 | XMS_ITS | Encounter Summary ---
:1940 Author Organization [facility] Address [address] [place] [id number] Care Team Providers Name Role Phone [facility] Provider Reason for Visit Reason Onset Date Comments Referral 05/14/2017 [facility] Encounter Details Date Type Department Care Team Description 05/14/2017 Telephone [facility], [place] ([place]) Project [address] [id number] [phone] (Wo rk) Social History Tobacco Use Types [...] this time because they are not a [facility] patient, will route to [facility] Pharmacist/Provider as an FYI. Thank you for the referral. Juanita Herndon MTM Coordinator documented in this encounter Plan of Treatment Not on filedocumented as of this encounter Visit Diagnoses Not on filedocumented in this encounter Care Teams [employer] Truck Driver Relationship Specialty Start Date End Date [facility], [facility] PCP - General 05/12/[address] [place] [id number] documented as of this encounter
--- OUTSIDE RECORDS SUMMARY | 2022-07-03 14:27 | XMS_ITS | Encounter Summary ---
:1940 Author Organization [place] Address [address] [place] [address] Care Team Providers Name Role Phone Clinic, [facility] Primary Care Provider [phone] Reason for Visit Reason Comments Transient Ischemic Attack Encounter Details Date Type Department Care Team Description 11/14/2017 - [facility] brittani Stauffer MD [facility] [address] [place] [address] Transient cerebral ischemia, unspecified type (Primary Dx); 11/15/2017 Anders Jamie Bryan MD [address] [place] [address] Weakness on right side of face; Dept Uncontrolled hypertension [address] [place] [address] Social History Tobacco Use Types [...] Comments Blood Pressure 157/73 11/15/2017 11:35 AM [employer] Pulse 54 11/14/2017 11:13 PM [employer] Temperature 35.8 ??C (96.5 ??F) 11/15/2017 11:35 AM [employer] Respiratory Rate 18 11/15/2017 11:35 AM [employer] Oxygen Saturation 97% 11/15/2017 11:35 AM [employer] Inhaled Oxygen Concentration - - Weight 88.9 kg (196 lb) 11/15/2017 2:04 AM [employer] Height 177.8 cm (5' 10) 11/15/2017 2:04 AM [employer] Body Mass Index 28.12 11/15/2017 2:04 AM [employer] documented in this encounter Discharge Summaries Luis Antonio Quintanilla MD - 11/15/2017 11:18 AM CST [facility] Discharge Summary Name: Speedy Hendricks Date of : 1940 Age: [age] year old Date of Discharge: 11/15/2017 Date of Admission: 11/14/2017 Primary Care Provider: Kehinde Portillo [place] Discharge Physician: Luis Antonio Quintanilla MD Discharging [...] with NOAC. I also spoke with his Junior Linux Administrator (Dr. Wilson) who agreed with starting lisinopril. [...] 50 Minutes. Luis Antonio Quintanilla MD Pager: [phone] [employer] documented in this encounter Medications at Time [...] placed in patient's chart. Samantha Vergara RRT [employer] documented in this encounter H&P Notes Jamie Gates MD - 11/15/2017 1:33 AM CST [facility] Hospitalist Admission Note Name: Speedy Hendricks Date [...] -permissive HTN -monitor for recurrence of symptoms -PT/OT/FEEDER TENDER -bedside swallow eval by RN, ok to [...] on amiodarone that was stopped by his mold stamper and repairer last week. Continues on 81mg aspirin and metoprolol 50mg bid. AC refused by patient/family due to enlarging AAA. -continue aspirin -continue metoprolol 50mg bid 4. Hx cardiac arrest: suspected due to mscontin buildup in setting of CKD. Hospitalized at [facility] 04/2017. Has been doing quite well since. 5. AAA: enlarging and up to 4.2cm when last checked. Due for repeat US next month. Father from AAA at age 61. 6. HTN: SBP elevated here initially to 185/99 now down to 140-150s in ED without intervention. 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 -continue metoprolol given arrhythmia issues -allow permissive HTN so hold his user acceptance tester lasix and also terazosin for now which [...] and normal perfusion Jamie Gates MD Hospitalist [facility] [employer] documented in this encounter ED Notes Debra Araujo RN - 11/15/2017 12:36 AM CST [facility] ED Nurse Handoff Report Speedy Hendricks is [...] Independent. Lift room needed: No. Bariatric: No Manual Qa Tester Needed: No Isolation: No. Infection: Not Applicable. [...] is able to stand, good equal bilateral diet supervisor, speech clear, gcs 15, AA&Ox3. Tests Performed: [...] chloride BOLUS (0 mLs Intravenous Stopped 11/14/17 0442) iopamidol (ISOVUE-370) solution 500 mL (120 mLs Intravenous Given 11/14/17 4118) Drips infusing: No For the majority of [...] hardware foot Thoracic surgery, right lung surgery [place] teeth extraction Family History: History reviewed. No [...] Screening for cardiovascular disease. Rate 58 bpm. OK interval 184 ms. QRS duration 82 ms. [...] focal stenosis of the left P2 segment ADMINISTRATIVE OFFICE ASSISTANT with a small trickle of contrast extending [...] Dr. Arriaga of the radiology service from [facility] regarding patient's presentation, findings, and [...] observations and the provider's statements to me. [facility] EMERGENCY DEPARTMENT Damian Mark MD 11/15/17 0149 [employer] documented in this encounter Miscellaneous Notes Plan [...] with: daughter OBSERVATION patient END time: 1210 [employer] Plan of Care - Mitra Joshi OT - 11/15/2017 9:39 AM CST Problem: Patient Care Overview Goal: Plan of Care/Patient Progress Review OT: Orders received and chart reviewed. Discussed with treatment team including physical therapist. No Ip OT needs at this time. Will complete orders [employer] Plan of Care - Brittany Alcantar, PT - 11/15/2017 9:23 AM CST Problem: Patient Care Overview Goal: Plan of Care/Patient Progress Review PT: Received orders for evaluation and treatment; per chart review and Obs team, no inpatient therapy needs at this time (issues have resolved). Will complete therapy orders. [employer] Plan of Care - Ca Major RN - 11/15/2017 8:00 AM CST Problem: Patient Care Overview Goal: Plan of Care/Patient Progress Review PRIMARY DIAGNOSIS: TIA R/O OUTPATIENT/OBSERVATION GOALS TO BE MET BEFORE DISCHARGE: 1. Orthostatic performed: No 2. Diagnostic testing complete & at baseline neurologic testing: Yes 3. Cleared by consultants (if involved): No 4. Interpretation of cardiac rhythm per land mobile radio technician: SR 5. Tolerating adequate PO diet and medications: Yes 6. Return to near baseline physical activity or neurologic status: Yes [place] Nurse Safe discharge environment identified: Yes Barriers to discharge: Yes Entered by: Ca Major 11/15/2017 Please review provider order for any additional goals. Nurse to notify provider when observation goals have been met and patient is ready for discharge. VSS, up independent, A&Ox4, steady gait, denies dizziness, reports 5/10 headache, improved aftertylenol given early childhood teacher, denies N/T, plan for MRI this AM, neuro consult, daughter at bedside, will continue to monitor and provide supportive cares. [employer] Plan of Care - Debra Araujo RN - 11/15/2017 2:30 AM CST Problem: Patient Care Overview Goal: Plan of Care/Patient Progress Review Outcome: Improving ROOM # 226 Living Situation (if not independent, order SW consult): lives independently Facility name: shipping lead person: daughters listed on chart Activity level at baseline: ind Activity level on admit: ind Patient registered to observation; given Patient Bill of Rights; given the opportunity to ask questions about observation status and their plan of care. Patient has been oriented to the observation room, bathroom and call light is in place. Discussed discharge goals and expectations with patient/family. [employer] documented in this encounter Plan of Treatment Not on filedocumented as of this encounter Procedures Procedure Name Priority Date/Time Associated Comments Diagnosis MR BRAIN W/O & W Routine 11/15/2017 9:15 AM Resul ts for this CONTRAST [employer] procedure are i n the results section. BASIC METABOLIC PANEL Routine 11/15/2017 6:37 AM Weakness on r ight Results for this [employer] side of face procedure are i n the results section. EKG 12-LEAD, TRACING Routine 11/15/2017 2:08 AM R esults for this ONLY [employer] procedure are i n the results section. CT HEAD W CONTRAST STAT 11/14/2017 11:58 Resul ts for this PM [employer] procedure are i n the results section. CTA HEAD NECK W STAT 11/14/2017 11:53 Results for this CONTRAST PM [employer] procedure are i n the results section. CT HEAD W/O CONTRAST STAT 11/14/2017 11:39 Res ults for this PM [employer] procedure are i n the results section. CBC WITH PLATELETS & Routine 11/14/2017 11:29 Res ults for this DIFFERENTIAL PM [employer] procedure are i n the results section. TROPONIN I Routine 11/14/2017 11:29 Results for this PM [employer] procedure are i n the results section. INR Routine 11/14/2017 11:29 Results for this PM [employer] procedure are i n the results section. PARTIAL THROMBOPLASTIN Routine 11/14/2017 11:29 R esults for this TIME PM [employer] procedure are i n the results section. BASIC METABOLIC PANEL Routine 11/14/2017 11:29 Re sults for this PM [employer] procedure are i n the results section. EKG 12-LEAD, TRACING STAT 11/14/2017 11:22 Res ults for this ONLY PM [employer]IC[employer] procedure are i n the results section. documented in this encounter Results MRI Brain w & w/o contrast (11/15/2017 9:15 AM [employer]) Anatomical Region Laterality Modality Head, SUBRAD MR NEURO, UMP MR NEURO, RAD MR Magnetic Resonance Specimen (Source) Anatomical Location Collection Method / Collectio n Time Received Time / Laterality Volume Impressions 11/15/2017 9:39 AM [employer] IMPRESSION: ?? 1. No evidence of acute infarct, mass, h emorrhage, or herniation. 2. Moderate diffuse parenchymal volume l oss and white matter changes likely due to chronic microvascular isch emic disease without significant change since prior. KATIA DAVID MD Narrative 11/15/2017 9:39 AM [employer] MRI BRAIN WITHOUT AND WITH CONTRAST ??11/15/2017 [...] distorted by artifact. No evidence of ac [place] intracranial hemorrhage. No mass effect or midline [...] distorted by artifact. No evidence of ac [place] intracranial hemorrhage. No mass effect or midline [...] (ABNORMAL) Basic metabolic panel (11/15/2017 6:37 AM [employer]) Analysis Performed At Patho logist Time Signature Sodium 141 133 - 144 11/15/2017 [facility] mmol/L 7:04 AM [facility] Potassium 4.1 3.4 - 5.3 11/15/2017 [facility] mmol/L 7:04 AM [facility] Chloride 109 94 - 109 11/15/2017 [facility] mmol/L 7:04 AM [facility] Carbon Dioxide 25 20 - 32 11/15/2017 [facility] mmol/L 7:04 AM [facility] Anion Gap 7 3 - 14 11/15/2017 [facility] mmol/L 7:04 AM [facility] Glucose 105 (H) 70 - 99 11/15/2017 [facility] mg/dL 7:04 AM [facility] Urea Nitrogen 33 (H) 7 - 30 11/15/2017 [facility] mg/dL 7:04 AM [facility] Creatinine 1.51 (H) 0.66 - 11/15/2017 [facility] 1.25 mg/dL 7:04 AM [facility] GFR Estimate 45 (L) >60 11/15/2017 [facility] mL/min/1.7 7:[address] Comment: Non GFR Calc GFR Estimate If 55 (L) >60 mL/min/1.7m2 11/15/2017 7:04 A [facility] Comment: GFR Calc Calcium 8.8 8.5 - 10.1 mg/dL 11/15/2017 7:[address] [facility] Specimen Anatomical Collection Method Collection Time Receive d Time (Source) Location / / Volume Laterality Blood specimen 11/15/2017 6:37 AM 018 6:38 (specimen) [employer] AM [employer] Jamie Gates MD LAB - BLOOD ORDERABLES Performing Organization Address City/State/ZIP Code Phon e Number [facility] [address] [address] [facility] [address] [phone] EKG 12-lead, tracing only (11/15/2017 2:08 AM [employer]IC[employer]) [facility] gist Method Time Signature Interpretation ECG Click View RADIOLOGY Image link RESULTS to view waveform and result Specimen (Source) Anatomical Collection Method Collection Time Re ceived Time Location / / Volume Laterality 11/15/2017 2:08 AM [employer] Jamie Gates MD ECG ORDERABLES Performing Organization Address City/[facility]/ZIP Code Phon e Number RADIOLOGY RESULTS CT Head w Contrast (11/14/2017 11:58 PM [employer] OFFIC[employer]) Anatomical Region Laterality Modality Head, NEURO, SUBRAD CT NEURO, SUBRAD CT NEURO, UMP CT Computed Tomography NEURO, RAD CT Specimen (Source) Anatomical Location Collection Method / Collectio n Time Received Time / Laterality Volume Impressions 11/15/2017 8:18 AM [employer] OFFIC[employer] IMPRESSION: 1. Patent arteries in the neck [...] KATIA DAVID MD Narrative 11/15/2017 8:18 AM [employer] OFFICER CT ANGIOGRAM OF THE HEAD AND NECK [...] CTA Angiogram Head Neck (11/14/2017 11:53 PM [employer] OFFIC[employer]) Anatomical Region Laterality Modality Head, SUBRAD CT NEURO, SUBRAD CT NEURO, UMP CT NEURO, Computed Tomography RAD CT Specimen (Source) Anatomical Location Collection Method / Collectio n Time Received Time / Laterality Volume Impressions 11/15/2017 8:18 AM [employer] IMPRESSION: 1. Patent arteries in the neck [...] KATIA DAVID MD Narrative 11/15/2017 8:18 AM [employer] OFFICER CT ANGIOGRAM OF THE HEAD AND NECK [...] CT Head w/o Contrast (11/14/2017 11:39 PM [employer] OFFIC[employer]) Anatomical Region Laterality Modality Head, SUBRAD CT NEURO, SUBRAD CT NEURO, UMP CT NEURO, Computed Tomography RAD CT Specimen (Source) Anatomical Location Collection Method / Collectio n Time Received Time / Laterality Volume Impressions 11/15/2017 8:18 AM [employer] OFF[employer] IMPRESSION: ?? 1. No evidence of acute intracranial hem orrhage, mass, or herniation. 2. There is generalized atrophy of the b rain. White matter changes are present in the cerebral hemispheres that are consistent with small vessel ischemic disease in this age angela ent. I agree with the overnight preliminary r eport by the radiologist. KATIA DAVID MD Narrative 11/15/2017 8:18 AM [employer] OFFICER CT SCAN OF THE HEAD WITHOUT CONTRAST [...] CT ORDERABLES Troponin I (11/14/2017 11:29 PM [employer]IC[employer]) athologist Signature Troponin I ES <0.015 0.000 - 11/14/2017 [place] 0.045 ug/L 11:53 PM [facility] Comment: The 99th percentile for upper reference range is 0.045 ug/L. ??Troponin values in the range of 0.045 - 0.120 ug/L may b e associated with risks of adverse clinical events. Specimen Anatomical Collection Method Collection Time Receive d Time (Source) Location / / Volume Laterality 11/14/2017 11:29 11/14/2017 PM [employer] 11:31 PM [employer] OFFIC[employer] Damian Mark MD LAB - BLOOD ORDERABLES Performing Organization Address City/[facility]/ZIP [facility] Phon e [facility] [address] [place], [place] [address] [place] [address] [address] [place] [address] [address], [facility] [phone] Partial thromboplastin time (11/14/2017 11:29 PM [employer] OFFIC[employer]) athologist Signature PTT 30 22 - 37 sec 11/14/2017 [facility] 11:45 PM [employer] OFFICER [facility] Specimen Anatomical Collection Method Collection Time Receive d Time (Source) Location / / Volume Laterality 11/14/2017 11:29 11/14/2017 PM [employer] 11:31 PM [employer] Damian Mark MD LAB - BLOOD ORDERABLES Performing Organization Address City/[facility]/ZIP [facility] Phon e Number [facility] [address] [place], [place] [address] [place] [address] [address] [place] [address], [facility] [phone] INR (11/14/2017 11:29 PM [employer] OFFIC[employer]) athologist Signature INR 0.96 0.86 - 1.14 11/14/2017 [facility] 11:45 PM [employer] OFFICER HOSPITAL Specimen Anatomical Collection Method Collection Time Receive d Time (Source) Location / / Volume Laterality 11/14/2017 11:29 11/14/2017 PM [employer] OFF[employer] 11:31 PM [employer] OFFIC[employer] Damian Mark MD LAB - BLOOD ORDERABLES Performing Organization Address City/State/ZIP Code Phon e Number [place] [address] [address] [place], [place] [address] [facility] [address] [place], [place] [address], [facility] [phone] (ABNORMAL) CBC with platelets differential (11/14/2017 11:29 PM [facility]) [facility] gist Method Time Signature WBC 6.1 4.0 - 11/14/2017 [facility] 11.0 11:34 PM [facility] 10e9/L [facility] RBC Count 4.23 (L) 4.4 - 5.9 11/14/2017 [facility] 10e12/L 11:34 PM [facility] Hemoglobin 13.7 13.3 - 11/14/2017 [facility] 17.7 g/dL 11:34 PM [facility] Hematocrit 41.0 40.0 - 11/14/2017 [facility] 53.0 % 11:34 PM [facility] MCV 97 78 - 100 11/14/2017 [facility] fl 11:34 PM [facility] MCH 32.4 26.5 - 11/14/2017 [facility] 33.0 pg 11:34 [facility] MCHC 33.4 31.5 - 11/14/2017 [facility] 36.5 g/dL 11:34 [facility] RDW 12.9 10.0 - 11/14/2017 [facility] 15.0 % 11:34 PM [facility] Platelet Count 122 (L) 150 - 450 11/14/2017 [facility] 10e9/L 11:34 PM [facility] Diff Method Automated 11/14/2017 [facility] Method 11:34 PM [facility] % Neutrophils 57.3 % 11/14/2017 [facility] 11:34 PM [facility] % Lymphocytes 27.8 % 11/14/2017 [facility] 11:34 [facility] % Monocytes 11.3 % 11/14/2017 [facility] 11:34 [facility] % Eosinophils 3.1 % 11/14/2017 [facility] 11:34 PM [facility] % Basophils 0.3 % 11/14/2017 [facility] 11:34 PM [facility] % Immature 0.2 % 11/14/2017 [facility] Granulocytes 11:34 PM [facility] Nucleated RBCs 0 0 /100 11/14/2017 [facility] 11:34 PM [facility] Absolute 3.5 1.6 - 8.3 11/14/2017 [facility] Neutrophil 10e9/L 11:34 PM [facility] Absolute 1.7 0.8 - 5.3 11/14/2017 [facility] Lymphocytes 10e9/L 11:34 PM [facility] Absolute 0.7 0.0 - 1.3 11/14/2017 [facility] Monocytes 10e9/L 11:34 PM [facility] Absolute 0.2 0.0 - 0.7 11/14/2017 [facility] Eosinophils 10e9/L 11:34 PM [facility] Absolute 0.0 0.0 - 0.2 11/14/2017 [facility] Basophils 10e9/L 11:34 PM [facility] Abs Immature 0.0 0 - 0.4 11/14/2017 [facility] Granulocytes 10e9/L 11:34 PM [facility] Absolute 0.0 11/14/2017 [facility] Nucleated RBC 11:34 PM [facility] Specimen Anatomical Collection Method Collection Time Receive d Time (Source) Location / / Volume Laterality 11/14/2017 11:29 11/14/2017 PM [employer] 11:31 PM [employer] Damian Mark MD LAB - BLOOD ORDERABLES Performing Organization Address City/State/ZIP Code Phon e Number [place] [address] [address] [place] [address] [facility] [address] [phone] (ABNORMAL) Basic metabolic panel (11/14/2017 11:29 PM [employer]IC[employer]) Analysis Performed At Patho logist Time Signature Sodium 141 133 - 144 [facility]/L 11:53 PM [facility] Potassium 3.7 3.4 - 5.3 11/14/2017 [facility] mmol/L 11:53 PM [facility] Chloride 107 94 - 109 11/14/2017 [facility] mmol/L 11:53 PM [facility] Carbon Dioxide 26 20 - 32 11/14/2017 [facility] mmol/L 11:53 PM [facility] Anion Gap 8 3 - 14 11/14/2017 [place] mmol/L 11:53 PM [facility] Glucose 103 (H) 70 - 99 11/14/2017 [place] mg/dL 11:53 PM [facility] Urea Nitrogen 32 (H) 7 - 30 11/14/2017 [place] mg/dL 11:53 PM [facility] Creatinine 1.67 (H) 0.66 - 11/14/2017 [place] 1.25 mg/dL 11:53 PM [facility] GFR Estimate 40 (L) >60 11/14/2017 [place] mL/min/1.7 11:[address] Comment: Non GFR Calc GFR Estimate If 49 (L) >60 mL/min/1.7m2 11/14/2017 11:53 PM [facility] Comment: GFR Calc Calcium 8.9 8.5 - 10.1 mg/dL 11/14/2017 11:[address] [facility] Specimen Anatomical Collection Method Collection Time Receive d Time (Source) Location / / Volume Laterality 11/14/2017 11:29 11/14/2017 PM [employer] 11:31 PM [employer] Damian Mark MD LAB - BLOOD ORDERABLES Performing Organization Address City/State/ZIP Code Phon e Number [place] [address] [phone] EKG 12 lead (11/14/2017 11:22 PM [employer] OFFIC[employer]) [facility] Method Time Signature Interpretation ECG Click View RADIOLOGY Image link RESULTS to view waveform and result Specimen (Source) Anatomical Collection Method Collection Time Re ceived Time Location / / Volume Laterality 11/14/2017 11:22 PM [employer] Damian Mark MD ECG ORDERABLES Performing Organization Address City/State/ZIP [facility] Phon e Number RADIOLOGY [...] chloride BOLUS New Bag 11/14/2017 11:48 PM [employer] 80 mLs Intravenous, 1,000 mL, ONCE, On 11/14/17 at 2330, For 1 dose acetaminophen (TYLENOL) tablet 1,000 mg Given 11/15/2017 1:11 AM [employer] 1,000 mg 1,000 mg, Oral, ONCE, On 11/15/17 at 0054, For 1 dose, Maximum acetaminophen dose from all sources = 75 mg/kg/day not to exceed 4 gram acetaminophen (TYLENOL) tablet 650 mg Given 11/15/2017 6:11 AM [employer] OFFIC[employer] 650 mg 650 mg, Oral, EVERY 4 HOURS PRN, mild pain, Starting on 11/15/17 at 0204, Alternate ibuprofen (if ordered) with acetaminophen. Maximum acetaminophen dose from all sources = 75 mg/kg/day not to exceed 4 grams/day. gadobutrol (GADAVIST) injection 10 mL Given 11/15/2017 8:30 AM [employer]IC[employer] 10 mLs 10 mL, Intravenous, ONCE, On 11/15/17 at 0805, For 1 dose, Supplied by, and administered by MRI. iopamidol (ISOVUE-370) solution 500 mL Given 11/14/2017 11:48 PM [employer] 120 mLs 500 mL, Intravenous, ONCE, On 11/14/17 at 2330, For 1 dose lisinopril (PRINIVIL/ZESTRIL) tablet 5 m g 5 mg, Oral, DAILY, First dose on 11/15/17 at 1102, Hold for SBP < 100 LORazepam (ATIVAN) injection 0.5-1 mg Given 11/15/2017 8:20 AM [employer] OFFIC[employer] 0.5 mg 0.5-1 mg, Intravenous, ONCE, On [...] Recently Administered Medications Times are shown in [employer]. Scheduled Medication Order 11/13/2017 11/14/2017 11/15/2017 0.9% [...] minutes.
documented in this encounter Care Teams College Sports Assistant Relationship Specialty Start Date End Date Bandar, Kehinde Portillofield PCP - General 05/12/[address] [place] [id number] documented as of this encounter
--- OUTSIDE RECORDS SUMMARY | 2022-07-03 14:27 | XMS_ITS | Encounter Summary ---
:1940 Author Organization [facility] Address [address] [place] [id number] Care Team Providers Name Role Phone Celina Coley Primary Care Provider [facility] [place] Primary [facility] Provider [phone] Reason for Referral Specialty Diagnoses / Procedures Referred By Contact Tam parson To Contact Sanjuanita Ponce RN Referral ID Status Reason Start Date Expiration Date Visits Requ ested Visits Authorized Specialty Diagnoses / Procedures Referred By Contact Tam parson To Contact Adrian Pleitez MD [address] [place] [id number] Referral ID Status Reason Start Date Expiration Date Visits Requ ested Visits Authorized Specialty Diagnoses / Procedures Referred By Contact Tam parson To Contact Adrian Pleitez MD [address] [facility] [address] [place] [address] Referral ID Status Reason Start Date Expiration Date Visits Requ ested Visits Authorized Specialty Diagnoses / Procedures Referred By Contact Tam parson To Contact Adrian Pleitez MD [address] [place] [address] Referral ID Status Reason Start Date Expiration Date Visits Requ ested Visits Authorized ome Health Therapies & Aides Specialty Diagnoses / Procedures Referred By Contact Refer red To Contact Adrian Pleitez MD [address] [place] [address] Referral ID Status Reason Start Date Expiration Date Visits Requ ested Visits Authorized - Closed Specialty Diagnoses / Procedures Referred By Contact Refer red To Contact Diagnoses Paroxysmal atrial fibrillation (H) Taran Lugo MD [address] [place] [address] Referral ID Status Reason Start Date Expiration Date Visits Requ ested Visits Authorized [id number] Closed 06/11/2017 06/11/2018 1 1 Reason for [...] Care [address] [place] [address] Phone: Referral ID Status Reason Start Date Expiration Date Visits Requ ested Visits Authorized [id number] 1 1 Encounter Details Date Type Department Care Team Description 05/05/2017 [facility] Leesa Martinez MD [facility] [address] [id number] Opioid overdose, accidental or unintenti onal, initial encounter (Primary Dx); - Encounter Miladys Phillips MD [address] [id number] Aspiration pneumonia, unspecified aspira tion pneumonia type, unspecified laterality, unspecified part of lung (H); 05/12/2017 [facility] Stephany Farley MD [address] [place] [address] Encephalopathy; [address] Paroxysmal atrial fibrillati on (H); [place] Hyperlipidemia LDL goal <70; [address] Acute left-sided low back pa in without sciatica; [phone] Unresponsivenes s Social History Tobacco Use Types [...] Pleitez MD - 05/12/2017 3:12 PM CDT [facility] Hospitalist discharge note Date of Service (when [...] follow-up with cardiology, primary care physician in [place] Speedy Mcduffie is a 76 year old male with a past medical history of Htn, CKD, atrial tachycardia, chronic back pain who was admitted on 05/05/2017 with encephalopathy thought due to opioid overdose. ?? 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 Also had been taking gabapentin and flexeril. [...] ? Suspected Aspiration PNA: as above Daughter (REMEDIAL MASSEUR) found patient with large amount of material [...] had been managed by his PMD and ULTIMATE HOOPS TRAINER was on Morphine 15 mg po BID (daughter reported that in the past he was confused with Oxycontin),??Burley 7/325 mg 1 tab po q4-6 h; he is also on scheduled Gabapentin and prn Flexeril -had a recent admission to [facility] from 04/28-04/30 for severe lower back pain [...] then stop - Consulted PT/OT. ? HTN: ULTIMATE HOOPS TRAINER on Metoprolol which was dced with bradycardia. [...] Mendes LSW - 05/12/2017 11:10 AM CDT [facility]: [phone]. documented in this encounter Medications at Time [...] continuation of in hospital lisinopril, restart of ULTIMATE HOOPS TRAINER metoprolol (had been advised against rate slowing agents by cardiology), restart of ULTIMATE HOOPS TRAINER flexeril and unclear amiodarone plan. states that [...] hospitalization events. -Raquel given phone # to [place] [facility] and names of last 2 providers seen. -Provided information on creatinine and GFR lab values as well as last administered doses of PRN metoprolol (05/09), PO metoprolol (05/07 - 1/ ULTIMATE HOOPS TRAINER dose) and daily lisinopril (05/12) during hospital [...] located a hospital bed for rent near [place] and has made arrangements for delivery today. SW notified CA and hospitalist to meet with daughter.per request. CC made referral to [facility] per request. Pt's family has used this agency previously. Team Members notified: Hospitalist, RN, CC, ELECTRICAL PANEL BUILDER Plan: Discharge home today with family and home care services through [facility]. Sanjuanita Ponce RN - 05/12/2017 9:44 AM CDT Met w/ pt's dtr Raquel and ADRIANO to discuss dc planning. Raquel has some concerns about pt going home rather than TCU but her sister Chastity is on FMLA and intends to stay at home to care for him. Raquel is a [facility] ICU nurse and patient care provider at [employer]. She has been on FMLA but [...] better today and therapy is recommending OP PT/OT/COAL EQUIPMENT OPERATOR if not going to TCU. His [...] She would like to stay within the [facility] system for vascular, cardiac, and sleep study. Contacted [facility] intake [phone] and spoke to Lynn. They would be able to see pt tomorrow at home. Faxed [phone] face sheet and H&P. Will fax orders when completed. Contacted [facility] Heart to make f/u appt with Dr Lugo. Appt made for ThuJun 19 at 2:15 to discuss AC in light of AAA. Spoke w/ Natasha Iraheta JAVA PROGRAMMER ANALYST [facility]. They do not need to see pt in f/u as strokes likely more related to hypoxia than AF and cardiology will be addressing AF issue. Contacted pt's PCP Dr Celina Coley at [facility]. Appt made for 05/15 at 10:00. Will fax handoff when dc orders complete. Contacted [facility] and appt made for ThuJun [address] Taylor to discuss sleep study. Await Dr Pleitez for further orders for vascular and urology f/u timing. Discussed transportation with dtr Raquel and bedside RN. Raquel's sister was planning on bringing [employer] to order picker/assembler pt and he would have to walk [...] Lugo to discuss anticoagulation. Faxed orders to [facility] and left message with Lynn to call Raquel at [phone] toschedule appts. Sent [facility] handoff. Faviochayo Berrios Mattie - 05/11/2017 4:28 PM CDT [facility] Progress Note [facility], Palliative Team PRIMARY FOCUS: ? Symptom/pain management ?? Emotional/spiritual/judaism distress ILLNESS CIRCUMSTANCES: ?? Reviewed documentation. Reflective conversation shared with Ed, which integrated elements of illnessand family narratives.? Context of Serious Illness/Symptom(s) - Pt overdosed on opioid pain relievers accidentally upon treatment for a broken tailbone. ?? Resources for Support - Strong family support from and two daughters, along with a brother who is a Orthodoxy tube roller DISTRESS: ? Emotional/Existential/Relational Distress - Pt is notably thankful for surviving this overdose. He sees that he is not finished with this life, and he is beginning to look toward how best to spend his remaining time. 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 ?? Spiritual/Zoroastrian Distress - None discussed. Pt surprisingly comfortable with his reality of surviving. ?? Social/Cultural/Economic Distress - None discussed? SPIRITUAL/JEW (Coping): ? Restorationism/Mariah - Yazidism. Pt did not particularly identify his own [...] has not discharged. ? Mattie Berrios M.Div. Line Service Technician Pager [phone] Kassy Go APRN CALCULUS TUTOR - 05/11/2017 3:55 PM CDT [facility] Palliative Care Progress Note Speedy Mcduffie Date [...] if evening or weekend. Milana Go APRN, [facility] Palliative Medicine Pager [phone] Attestation: Total time on the floor involved [...] and are neighbors. Pt' daughterRaquel is an REMEDIAL MASSEUR and daughter Chastity is a private pilot. Chastity states she is currently on [...] Nikhil Rodriguez, - 05/11/2017 10:51 AM CDT [facility] Hospitalist Progress Note Nikhil Rodriguez D.O. Date of service (Date I saw patient): 05/11/2017 Assessment & Plan Speedy Mcduffie is a 76 year old male with a past medical history of Htn, CKD, atrial tachycardia, chronic back pain who was admitted on 05/05/2017 with encephalopathy thought due to opioid overdose. 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 Also had been taking gabapentin and flexeril. [...] ? Suspected Aspiration PNA: as above Daughter (REMEDIAL MASSEUR) found patient with large amount of material [...] had been managed by his PMD and ULTIMATE HOOPS TRAINER was on Morphine 15 mg po BID (daughter reported that in the past he was confused with Oxycontin),??Burley 7/325 mg 1 tab po q4-6 h; he is also on scheduled Gabapentin and prn Flexeril -had a recent admission to [facility] from 04/28-04/30 for severe lower back pain [...] then stop - Consulted PT/OT. ? HTN: ULTIMATE HOOPS TRAINER on Metoprolol which was dced with bradycardia. [...] outpt appt will be scheduled to discuss snf option in light of AAA Interval History: [...] Taran Lugo MD Counters, Natasha Li APRN CALCULUS TUTOR - 05/11/2017 9:03 AM CDT [facility]science [facility] Sp[facility] Neurology Daily Note Admission Date:05/05/2017 Date of [...] Sensory: Normal to light touch Coordination: Intact [id number] Gait: Up with assistance Cardiovascular: Regular rate [...] of small vessel ischemic disease. Natasha Iraheta, MOBILE HOME INSTALLER-BC Associated attestation - Raúl Keane MD - [...] Greene MD - 05/10/2017 5:32 PM CDT [facility] Hospitalist Progress Note Assessment & Plan Speedy Mcduffie is a 76 year old male who was admitted on 05/05/2017. 76 year old male who was brought in for evaluation of unresponsiveness. ? 1. Altered mental status/Acute toxic encephalopathy Patient found by daughter (Raquel, REMEDIAL MASSEUR) after likely prolonged period of unresponsiveness and suspected aspiration. Airway was cleared by daughter, but patient was hypoxic in the 60s for what soundslike at least 40 minutes before oxygen was available. Patient responded to narcan and thus it was suspected that patient had an unintentional opioid overdose with worsening of renal function and taking scheduled morphine 15mg ER BID with Burley 7.5/325 1-1.5 tabs PRN q4-6 hours started [...] ? 2. Suspected Aspiration PNA - Daughter (REMEDIAL MASSEUR) found patient with large amount of material [...] had been managed by his PMD and ULTIMATE HOOPS TRAINER was on Morphine 15 mg po BID (daughter reported that in the past he was confused with Oxycontin),??Burley 7/325 mg 1 tab po q4-6 h; he is also on scheduled Gabapentin and prn Flexeril -and a recent admission to [facility] from 04/28-04/30 for severe lower back pain [...] Consulted PT/OT. ? 6. H/o HTN - ULTIMATE HOOPS TRAINER on Metoprolol 50 mg po BID for [...] Delgado MD - 05/10/2017 4:04 PM CDT [facility] Cardiology Progress Note Date of Service (when [...] Delgado MD - 05/09/2017 2:04 PM CDT [facility] Cardiology Progress Note Date of Service (when [...] Greene MD - 05/09/2017 11:58 AM CDT [facility] Hospitalist Progress Note Assessment & Plan Speedy Mcduffie is a 76 year old male who was admitted on 05/05/2017. 76 year old male who was brought in for evaluation of unresponsiveness. ? 1. Altered mental status/Acute toxic encephalopathy Patient found by daughter (Raquel, REMEDIAL MASSEUR) after likely prolonged period of unresponsiveness and suspected aspiration. Airway was cleared by daughter, but patient was hypoxic in the 60s for what soundslike at least 40 minutes before oxygen was available. Patient responded to narcan and thus it was suspected that patient had an unintentional opioid overdose with worsening of renal function and taking scheduled morphine 15mg ER BID with Burley 7.5/325 1-1.5 tabs PRN q4-6 hours started [...] ? 2. Suspected Aspiration PNA - Daughter (REMEDIAL MASSEUR) found patient with large amount of material [...] had been managed by his PMD and ULTIMATE HOOPS TRAINER was on Morphine 15 mg po BID (daughter reported that in the past he was confused with Oxycontin),??Burley 7/325 mg 1 tab po q4-6 h; he is also on scheduled Gabapentin and prn Flexeril -and a recent admission to [facility] from 04/28-04/30 for severe lower back pain [...] Consulted PT/OT. ? 6. H/o HTN - ULTIMATE HOOPS TRAINER on Metoprolol 50 mg po BID for [...] Bed to Chair/Chair to Bed Level of Paia: Bed to Chair moderate assist (50% patients effort) Physical Assist/Nonphysical Assist: Bed to Chair 2 persons Weight-Bearing Restrictions full weight-bearing Assistive Device - Transfer Skill Bed to Chair Chair to Bed Rehab Eval rolling walker Transfer Skill: Sit to Stand Level of Paia: Sit/Stand minimum assist (75% patients effort) Physical Assist/Nonphysical Assist: Sit/Stand 2 persons Transfer Skill: Sit to Stand full weight-bearing Assistive Device for Transfer: Sit/Stand rolling walker Transfer Skill: Toilet Transfer Level of Paia: Toilet moderate assist (50% patients effort) Physical Assist/Nonphysical Assist: Toilet 2 persons Assistive Device seat riser;grab bars Balance Balance Comments Reduced dynamic balance Upper Body Dressing Level of Paia: Dress Upper Body minimum assist (75% patients effort) Lower Body Dressing Level of Paia: Dress Lower Body maximum assist (25% patients effort) Physical Assist/Nonphysical Assist: Dress Lower Body 1 person assist Grooming Level of Paia: Grooming stand-by assist Activities of Daily Living [...] in agreement with plan of care Yes [facility] AM-PAC TM 6 Clicks ?? 2016, Trustees of [facility], under license to [employer]. All rights reserved. 6 Clicks Short Forms Basic Mobility Inpatient Short Form [facility] AM-PAC??? 6 Clicks Daily Activity Inpatient [...] for IV heparin. Previously reported pauses so senior account director BB on hold. Could consider resuming BB and monitoring for pauses or short acting CCB. Would recommending re- consulting EP in am if cards agrees. Continue to monitor on tele. Lindsay Watt PA-C - 05/08/2017 9:13 PM CDT Paged by nursing regarding persistent sinus tachycardia in the 140s this evening. Pt asymptomatic. Reviewed chart. Pt with tachybrady syndrome. Cardiology following. Pt's ULTIMATE HOOPS TRAINER BB has been on hold as wasalternating between periods of sinus tach and sinus dani with up to 3 second pause. Will order PRN IV Metoprolol 2.5 mg q 4 hrs PRN. Monitor. If pt should become symptomatic or HR's continue to be persistently elevated, could increase dose of IV Metoprolol or reinitiate ULTIMATE HOOPS TRAINER BB. Stephany Farley MD - 05/08/2017 2:27 PM CDT [facility] Hospitalist Progress Note Date of Service (when I saw the patient): 05/08/2017 Assessment & Plan Speedy Mcduffie is a 76 year old male who was brought in for evaluation of unresponsiveness. ? 1. Altered mental status/Acute toxic encephalopathy Patient found by daughter (Raquel, REMEDIAL MASSEUR) after likely prolonged period of unresponsiveness and suspected aspiration. Airway was cleared by daughter, but patient was hypoxic in the 60s for what soundslike at least 40 minutes before oxygen was available. Patient responded to narcan and thus it was suspected that patient had an unintentional opioid overdose with worsening of renal function and taking scheduled morphine 15mg ER BID with Burley 7.5/325 1-1.5 tabs PRN q4-6 hours started [...] ? 2. Suspected Aspiration PNA - Daughter (REMEDIAL MASSEUR) found patient with large amount of material [...] had been managed by his PMD and ULTIMATE HOOPS TRAINER was on Morphine 15 mg po BID (daughter reported that in the past he was confused with Oxycontin),??Burley 7/325 mg 1 tab po q4-6 h; he is also on scheduled Gabapentin and prn Flexeril -and a recent admission to [facility] from 04/28-04/30 for severe lower back pain [...] Consulted PT/OT. ? 6. H/o HTN - ULTIMATE HOOPS TRAINER on Metoprolol 50 mg po BID for [...] planning totake patient home. Stephany Farley MD [phone] (P) Text page (7am to 6pm) Interval [...] hospital, year, though thought he was in [place]. No acute distress. Non-toxic. Respiratory: Clear [...] Farley MD - 05/07/2017 10:00 PM [facility]T [facility] Date of Service (when I saw the patient): 05/07/2017 Assessment & Plan Speedy Mcduffie is a 76 year old male who was brought in for evaluation of unresponsiveness. ? 1. Altered mental status/Acute toxic encephalopathy Patient found by daughter (Raquel, REMEDIAL MASSEUR) after likely prolonged period of unresponsiveness and suspected aspiration. Airway was cleared by daughter, but patient was hypoxic in the 60s for what soundslike at least 40 minutes before oxygen was available. Patient responded to narcan and thus it was suspected that patient had an unintentional opioid overdose with worsening of renal function and taking scheduled morphine 15mg ER BID with Burley 7.5/325 1-1.5 tabs PRN q4-6 hours started [...] ?? 2. Suspected Aspiration PNA - Daughter (REMEDIAL MASSEUR) found patient with large amount of material [...] had been managed by his PMD and ULTIMATE HOOPS TRAINER was on Morphine 15 mg po BID (daughter reported that in the past he was confused with Oxycontin),??Burley 7/325 mg 1 tab po q4-6 h; he is also on scheduled Gabapentin and prn Flexeril -and a recent admission to [facility] from 04/28-04/30 for severe lower back pain [...] more alert. ? 6. H/o HTN - ULTIMATE HOOPS TRAINER on Metoprolol 50 mg po BID for HTN. - Holding now with bradycardia. Will follow. - monitor BP ? 7. Dyslipidemia - hold ULTIMATE HOOPS TRAINER Atorvastatin while he is npo ? 8 [...] monitoring in ICU overnight. Stephany Farley MD [phone] (P) Text page (7am to 6pm) Interval History Patient given ativan overnight and somnolent when patient's daughter present during day. Patient also noting headache throughout day. Head CT done without any acute findings. Burley with minimal improvement. Patient's mentation improved by [...] alone. I ordered gabapentin and low dose Burley (home meds). RN concerned about alcohol withdrawal, experiencing hallucinations. CIWA, banana bag and ativan prn ordered for alcohol withdrawal. Stephany Farley MD - 05/06/2017 7:05 PM CDT [facility] Hospitalist Progress Note Date of Service (when I saw the patient): 05/06/2017 Assessment & Plan Speedy Mcduffie is a 76 year old male who was brought in for evaluation of unresponsiveness. ?? 1. Altered mental status/Acute toxic encephalopathy Patient found by daughter (Raquel, REMEDIAL MASSEUR) after likely prolonged period of unresponsiveness and suspected aspiration. Airway was cleared, but patient was hypoxic in the 60s for what sounds like at least 20-40 minutes before oxygen was available. Patient responded to narcan and thus it was suspected that patient had an unintentional opioid overdose with worsening of renal function and taking scheduled morphine 15mg ER BID with Burley 7.5/325 1-1.5 tabs PRN q4-6 hours started in the past week. Also had been taking gabapentin and flexeril. - Patient started on narcan drip initially and this has since been stopped. - Appreciate human resources trainer recommendations. Had initially planned to transfer to step down this afternoon, but patient having episodes of bradycardia in 40s - 50s, with one strip noting a rate of 29. These seem to happen when patient is sleeping and are sinus in nature. Family Consumer Science Fcs Teacher agrees with keeping patient in the ICU [...] ?? 2. Suspected Aspiration PNA - Daughter (REMEDIAL MASSEUR) found patient with large amount of material [...] had been managed by his PMD and ULTIMATE HOOPS TRAINER was on Morphine 15 mg po BID (daughter reported that in the past he was confused with Oxycontin), Burley 7/325 mg 1 tab po q4-6 h; he is also on scheduled Gabapentin and prn Flexeril -and a recent admission to [facility] from 04/28-04/30 for severe lower back pain when tapering Prednisone was added. On prednisone 10mg daily at time of event with plan for 2 more days 10mg and then 3 days 5mg daily. - Holding meds initially. Avoiding narcotics. Will consult PT when more alert. ?? 6. H/o HTN - ULTIMATE HOOPS TRAINER on Metoprolol 50 mg po BID for HTN. - Holding now with episodic bradycardia. Will follow. - monitor BP - Metoprolol iv prn ordered ?? 7. Dyslipidemia - hold ULTIMATE HOOPS TRAINER Atorvastatin while he is npo ?? 8 [...] hypoxia. PT consulted. ?? Stephany Farley MD [phone] (P) Text page (7am to 6pm) Interval [...] male found unresponsive, airlifted to [facility] for ongoing treatment of unitnentional overdose [...] in agreement with plan of care Yes [facility] TM 6 Clicks ?? 2016, Trustees of [facility], under license to [employer]. All rights reserved. 6 Clicks Short Forms Basic Mobility Inpatient Short Form [facility]??? 6 Clicks V.2 Basic Mobility Inpatient Short [...] male found unresponsive, airlifted to [facility] for ongoing treatment of unitnentional overdose [...] in agreement with plan of care Yes [facility] TM 6 Clicks ?? 2016, Trustees of [facility], under license to [employer]. All rights reserved. 6 Clicks Short Forms Basic Mobility Inpatient Short Form [facility]??? 6 Clicks V.2 Basic Mobility Inpatient Short [...] Total Evaluation Time (Minutes) 10 Marie Zuñiga, COAL EQUIPMENT OPERATOR - 05/06/2017 1:30 PM CDT 05/06/17 [...] aspiration of his vomit. Clinical Swallow Eval: [place] Thick Liquid Texture Trial Mode of Presentation, [place] spoon;self-fed Volume of [place] Presented 3 teaspoons Oral Phase, [place] WFL Pharyngeal Phase, [place] intact Clinical Swallow Eval: Puree Solid Texture [...] Irvin MD - 05/06/2017 9:51 AM CDT [facility] Critical Care Service Progress Note Date of Service: 05/06/2017 Assessment & Plan Speedy Mcduffie is a 76 year old male who was admitted on 05/05/2017 with altered mental status following a possible unintentional narcotic overdose. PARTS DESIGNER: Alert, appropriate, oriented this AM. - Altered [...] FEN/GI: Abdomen benign. - NPO for now. COAL EQUIPMENT OPERATOR evaluation to assess swallow, consider starting [...] Today - Stop naloxone infusion. - PT, COAL EQUIPMENT OPERATOR. - Possible transfer from ICU. Interval [...] Mccullough MD - 05/05/2017 5:34 PM CDT [facility] History and Physical Hospitalist Date of Admission: [...] BID, more recently (last week) started on Burley 7.5/325 mg 1 tab po q4-6h prn - he is also on scheduled Gabapentin and Flexeril prn - his daughter- who is a REMEDIAL MASSEUR does not think that he overdosed intentionally; [...] 141/81 - discussed with ICU attending; formal human resources trainer consult - continue BiPAP for now- wean [...] had been managed by his PMD and ULTIMATE HOOPS TRAINER was on Morphine 15 mg po BID (daughter reported that in the past he was confused with Oxycontin), Burley 7/325 mg 1 tab po q4-6 h; he is also on scheduled Gabapentin and prn Flexeril -and a recent admission to [facility] from 04/28-04/30 for severe lower back pain when tapering Prednisone was added - it seems that he was doing fine at home, walking with walker - now holding all narcotics, Gabapentin, Flexeril - may need to be seen by PT when he will be more awake 6. H/o HTN - ULTIMATE HOOPS TRAINER on Metoprolol 50 mg po BID- hold it for now given AMS and isolated low BP - monitor BP - Metoprolol iv prn ordered 7. Dyslipidemia - hold ULTIMATE HOOPS TRAINER Atorvastatin while he is npo 8 . [...] the time of my examination;she is a REMEDIAL MASSEUR at [employer]. History of Present Illness Speedy Mcduffie [...] time); more recently- he was started on Burley 7/325 mg 1 tab poq4-6 h; he is also on scheduled Gabapentin and prn Flexeril. He was recently admitted to [facility] from 04/28- 04/30/2017 for severe back pain; [...] he was air lifted to [facility]. As per report- he was given [...] vibration. His coordin ation is intact to [id number]. I did not his gait exam. Impression: [...] additional neurological questions. Arpita Nelson MD Document: [id number] REEEDR\. Margaret Laguna MD - 05/08/2017 10:11 AM CDT [facility] Palliative Care Consultation Note Patient: Speedy Mcduffie [...] with any urgent needs. Margaret Laguna Pager: [phone] [facility] Inpatient Team Consult pager [phone] (M-F 8-4:30) After-hours Answering Service [phone] Palliative Clinic: [phone] Assessment Speedy Mcduffie is a 76 year old male with lower back pain 2/2 incomplete sacral fracture after a fall managed conservatively with opioids admitted 05/05 for suspected unintentional opioid overdose and aspiration. Course complicated by acute hypoxic respiratory failure, altered mental status, acute on CKD. 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 He doesn't recall making changes [...] done rapidly if he hasn't taken it ULTIMATE HOOPS TRAINER. Lidocaine patches didn't help in the past. Gets good relief with heat and ice, using heating pad now. I feel a trial of low-dose diclofenac with monitoring of his renal function would be a good option at this time. He is already on misoprostol ULTIMATE HOOPS TRAINER, which I assume was started with the [...] Care Planning: patient is working on a [employer] at home, wants to designate his daughters [...] sleep last night, also received one 5/325 Burley about 90min prior to my visit. ROS: [...] magnesia daily prn, Senna-docusate prn - none ULTIMATE HOOPS TRAINER: MS Contine 15mg bid Hydrocodone/APAP 7.5/325 1-1.5 [...] reviewed: crea 1.24 (baseline) Margaret Laguna Pager: [phone] [facility] Inpatient Team Consult pager [phone] (M-F 8-4:30) After-hours Answering Service [phone] Palliative Clinic: [phone] Total time spent was 45 minutes, >50% of time was spent counseling and/or coordination of care regarding symptom assessment, disease understanding. Rolando Burrell MD - 05/07/2017 11:00 AM CDT [facility] Cardiology Consultation Date of Admission: 05/05/2017 Rolando [...] HDL, LDL, TRIG, CHOLHDLRATIO in the last 24559 hours. Recent Labs Lab 05/07/17 0450 05/06/1744405/05/17 [...] 9:21 AM CDTAssociated Order(s): CARDIOLOGY IP CONSULT [facility] Cardiology Consultation Date of Admission: 05/05/2017 Date [...] 3 seconds) 2) Altered Mental Status - [place] to be due to incidental opioid overdose [...] opioid therapy. He had recent admission to [facility] between 711 and 713 for severe [...] Sinus Bradycardia Kamari Jones PA-C 05/07/2017 Pager: [phone] Associated attestation - Hue Klein MD - [...] Irvin MD - 05/05/2017 6:24 PM CDT [facility] History and Physical/ Consult Critical Care Service Date of Admission: 05/05/2017 Date of Service: 05/05/17 Assessment & Plan Speedy Mcduffie is a 76 year old male who presents with altered mental status. PARTS DESIGNER: Somnolent, has responded to naloxone in ED [...] was airlifted to the emergency department at [facility]. Naloxone administered during transport improved his mental status transiently. The patient has a recent sacral fracture which has caused some pjjxgkgbn-ag-bgfwdfu pain. Past Medical History I have reviewed [...] NEG Ketones Urine Negative NEG mg/dL Specific [place] Urine 1.020 1.003 - 1.035 Blood Urine [...] patient was brought by ambulance to a [facility] helicopter and then to the emergency department for evaluation because his other daughter is nurse in the ICU at [facility]. He was not brought to [place] for evaluation because he was initially unresponsive. [...] Remove hardware foot Left lung surgical decortication [place] teeth Family History: History reviewed. No pertinent [...] wave abnormality Abnormal ECG Rate 79 bpm. CA interval 138. QRS duration 76. QT/QTc 376/431. [...] 05/05/2017 EMERGENCY DEPARTMENT Leesa Martinez MD 05/05/17 4040 documented in this encounter Miscellaneous Notes Provider Notification - Aubrey Morales, RN - 05/12/2017 3:42 PM CDT Paged and spoke to Dr. Pleitez notified pharmacist from [facility] called with concern with counter indications with the d/c med sent. Net Developer Architect given phone number to Dr. Pleitez, she will contact pharmacy to verify. Phone number [phone] Plan of Care - Nai Santacruz PT - 05/12/2017 3:42 PM CDT Problem: Goal Outcome Summary Goal: Goal Outcome Summary Physical Therapy Discharge Summary Reason for therapy discharge: Discharged to home with home therapy. Progress towards therapy goal(s). See goals on Care Plan in [facility] electronic health record for goal details. [...] goal(s). See goals on Care Plan in [facility] electronic health record for goal details. [...] Goal Outcome Summary Goal: Goal Outcome Summary Lead Quality Technician PT Patient plan for discharge: Home with [...] Goal Outcome Summary Goal: Goal Outcome Summary Lead Quality Technician PT Patient plan for discharge: None stated [...] PM Plan of Care - Marie Zuñiga, COAL EQUIPMENT OPERATOR - 05/11/2017 10:13 AM CDT Problem: Goal Outcome Summary Goal: Goal Outcome Summary Lead Quality Technician COAL EQUIPMENT OPERATOR Patient plan for discharge: Patient would [...] pt for OT session, pt busy with COAL EQUIPMENT OPERATOR and eating breakfast on 1st attempt, [...] and then 379cc at 1210 and 476cc [id number]. D/c pending, currently recommending TCU. Nrsg will continue to monitor. Plan of Care - Marie Zuñiga SLP - 05/10/2017 1:50 PM CDT Problem: Goal Outcome Summary Goal: Goal Outcome Summary Lead Quality Technician COAL EQUIPMENT OPERATOR Patient plan for discharge: Patient would [...] declines/aspiration signs are observed. Plan to continue COAL EQUIPMENT OPERATOR swallow Tx For one mores session to insure diet tolerance and train strategies. Barriers to return to prior living situation: Cognition and deconditioning. Recommendations for discharge: TCU Rationale for recommendations: Patient will likely meet IP goals for swallowing. Entered by: Marie Zuñiag 05/10/2017 1:44 PM Plan of Care - Marie Ortega PT - 05/10/2017 12:13 PM CDT Problem: Goal Outcome Summary Goal: Goal Outcome Summary Lead Quality Technician PT Patient plan for discharge: Pt hopes [...] Goal Outcome Summary Goal: Goal Outcome Summary Lead Quality Technician OT Patient plan for discharge: home with [...] Outcome: Improving Altered mental status. PT, OT, COAL EQUIPMENT OPERATOR. A/Ox4, forgetful, acute confusion episodes upon [...] Goal Outcome Summary Goal: Goal Outcome Summary Lead Quality Technician COAL EQUIPMENT OPERATOR Patient plan for discharge: Did not [...] declines/aspiration signs are observed. Plan to continue COAL EQUIPMENT OPERATOR swallow Tx short term to insure diet tolerance and train strategies. Barriers to return to prior living situation: Level of assist per OT/PT needs Recommendations for discharge: Per OT/PT needs; No COAL EQUIPMENT OPERATOR needs likely indicated after discharge Rationale for recommendations: Anticipate COAL EQUIPMENT OPERATOR swallow Tx goal to be be [...] Goal Outcome Summary Goal: Goal Outcome Summary COAL EQUIPMENT OPERATOR: Attempted to see patient at breakfast [...] Pt had assist with dressing, and IADLs. Lead Quality Technician OT Patient plan for discharge: Home with [...] 05/08/2017 11:15 PM CDT Page to MD special education teachers, pt still tachy in high 115-150s - occasionally will drop below 100 but then tachycardia resumes. Given all PRN options. Orders for meds rec'd/updated in DEC. 0030 Bedside RN went togive meds and HR slowed, sustained into 70's long enough to capture strip. Tele strip printed by this insurance underwriter, pt appears to be in a-flutter. Sent to CCU to verify. 0045 Re-page to MD special education teachers regarding underlying rhythm. STAT 12 lead ordered. [...] to hospitalist, PRN Metoprolol ordered and given. Net Developer Architect also instructed to give scheduled BP meds. [...] Goal Outcome Summary Goal: Goal Outcome Summary Lead Quality Technician COAL EQUIPMENT OPERATOR Patient plan for discharge: Did not [...] day without symptoms, bp high apresoline iv [id number] without much improvement. notified at 1300 hospitalist [...] life. Hosptalist ordered to give low dose Burley and stat head CT. Notified primary nurse. Plan of Care - Kassy Chatman SLP - 05/07/2017 2:50 PM CDT Problem: Goal Outcome Summary Goal: Goal Outcome Summary Lead Quality Technician COAL EQUIPMENT OPERATOR Patient plan for discharge: Did not [...] PM Plan of Care - Marie Zuñiga COAL EQUIPMENT OPERATOR - 05/07/2017 9:47 AM CDT Problem: Goal Outcome Summary Goal: Goal Outcome Summary COAL EQUIPMENT OPERATOR: Attempted to see patient for swallow [...] metoprolol per prn order after discussing with human resources trainer. Pt then had periods of tachy/dani. See [...] to rest. Plan of Care - Kirsten Ramirze RN - 05/06/2017 7:31 PM CDT Problem: [...] Goal Outcome Summary Goal: Goal Outcome Summary Lead Quality Technician PT PT: Evaluation completed, treatment initiated. 76 [...] Goal Outcome Summary Goal: Goal Outcome Summary Lead Quality Technician COAL EQUIPMENT OPERATOR Patient plan for discharge: Undetermined Current [...] his respiratory status hold the diet. 3. COAL EQUIPMENT OPERATOR will f/u for diet tolerance on [...] intermittently to vigorous sternal rub. MD aware, human resources trainer consult. [place] reassess at 2000 for intubation. CV: SR, pressure stable. Pulm: LS coarse, BIPAP. GI/: Abd distended. Adequate clear urine output. Skin: intact Lines: 2 periph iv Plan: plan to reassess arousal level and ABG at 1999 Pharmacy-Admission Medication History - Victoriano Villa RPH - 05/05/2017 4:44 PM CDT Admission medication history interview status for the 05/05/2017 admission is complete. See [facility] admission navigator for prior to admission medications Medication history source reliability:Good Actions taken by pharmacist (provider contacted, etc):None Additional medication history information not noted on ULTIMATE HOOPS TRAINER med list : ----Pt unresponsive. Medication bottles [...] with Referral Routine Paroxysmal atrial Expected : Hosiery Bagger fibrillation (H) 05/20 (Approximate), Expires: 05/11/2018 Home Care PT Referral for Referral Routine Enceph alopathy Ordered: Hospital Discharge Aspiration pneumonia, 05/12/2017 unspecified aspiration pneumonia type, unspecified laterality, unspecified part of lung (H) Home Care OT Referral for Referral Routine Enceph alopathy Ordered: Hospital Discharge Aspiration pneumonia, 05/12/2017 unspecified aspiration pneumonia type, unspecified laterality, unspecified part of lung (H) Home Care COAL EQUIPMENT OPERATOR Referral for Referral Routine Encep halopathy [...] Time Signature Sodium 144 133 - 144 [place] mmol/L [facility] Potassium 4.0 3.4 - 5.3 [place] mmol/L [facility] Chloride 112 (H) 94 - 109 [place] mmol/L [facility] Carbon Dioxide 22 20 - 32 [place] mmol/L [facility] Anion Gap 10 3 - 14 [place] mmol/L [facility] Glucose 111 (H) 70 - 99 [place] mg/dL [facility] Urea Nitrogen 25 7 - 30 [place] mg/dL [facility] Creatinine 1.55 (H) 0.66 - [place] 1.25 mg/dL [facility] GFR Estimate 44 (L) >60 [place] mL/min/1.[address] Comment: Non GFR Calc GFR Estimate If Black 53 (L) >60 mL/min/1.7m2 [facility] Comment: GFR Calc Calcium 8.1 (L) 8.5 - 10.1 mg/dL [facility] Specimen Anatomical Collection Method Collection Time Receive d Time (Source) Location / / Volume Laterality Blood specimen 05/12/2017 8:52 AM 017 9:02 (specimen) CDT AM CDT Nikhil Rodriguez DO LAB - BLOOD ORDERABLES Performing Organization Address City/State/ZIP Code Phon e Number M [facility] [address] [address] [facility] [address] [address], [place] [phone] Hemoglobin A1c (05/11/2017 11:37 AM CDT) athologist Signature Hemoglobin A1C 5.6 4.3 - 6.0 [facility] Specimen Anatomical Collection Method Collection Time Receive d Time (Source) Location / / Volume Laterality Blood specimen 05/11/2017 11:37 7 (specimen) AM CDT 11:57 AM CDT Natasha Jen Counters TECHNICAL AGRONOMIST CALCULUS TUTOR LAB - BLOOD ORDERABLES Performing Organization Address City/State/ZIP Code Phon e Number [facility] [address] [address] [facility] [address] [address], [place] [phone] Vitamin B12 (05/11/2017 11:37 AM CDT) athologist Signature Vitamin B12 800 193 - 986 [facility] pg/mL [facility] Specimen Anatomical Collection Method Collection Time Receive d Time (Source) Location / / Volume Laterality Blood specimen 05/11/2017 11:37 7 (specimen) AM CDT 11:57 AM CDT Natasha Jen Counters TECHNICAL AGRONOMIST CALCULUS TUTOR LAB - BLOOD ORDERABLES Performing Organization Address City/State/ZIP Code Phon e Number [address] [address] [facility] Vitamin D Deficiency (05/11/2017 11:37 AM CDT) athologist Signature Vitamin D 26 20 - 75 [facility] Deficiency ug/L [facility] Comment: Season, race, dietary intake, and treatm ent affect the concentration of 42-gjumkga-Zsfyxdz D. Values may decrea se during winter [...] CDT 11:57 AM CDT Natasha Jen Counters TECHNICAL AGRONOMIST CALCULUS TUTOR LAB - BLOOD ORDERABLES Performing Organization Address City/[facility]/ZIP Code Phon e Number [id number] [place] [address] (ABNORMAL) Lipid Profile (05/11/2017 11:37 AM CDT) P athologist Signature Cholesterol 128 <200 mg/dL [facility] Triglycerides 164 (H) <150 mg/dL [facility] Comment: Borderline high: ??150-199 mg/dl High: ? 200-499 mg/dl Very high: ? >499 mg/dl HDL Cholesterol 44 >39 mg/dL [facility] LDL Cholesterol Calculated 51 <100 mg/dL [facility] Comment: Desirable: <100 mg/dl Non HDL Cholesterol 84 <130 mg/dL [facility] Specimen Anatomical Collection Method Collection Time Receive d Time (Source) Location / / Volume Laterality Blood specimen 05/11/2017 11:37 7 (specimen) AM CDT 11:57 AM CDT Natasha Jen Counters TECHNICAL AGRONOMIST CALCULUS TUTOR LAB - BLOOD ORDERABLES Performing Organization Address City/[facility]/ZIP Code Phon e Number [facility] [address] [address] [facility] [address] [address], [place] [phone] Platelet count (05/11/2017 7:17 AM CDT) P athologist Signature Platelet Count 169 150 - 450 [place] 10e9/L [facility] Specimen Anatomical Collection Method Collection Time Receive d Time (Source) Location / / Volume Laterality Blood specimen 05/11/2017 7:17 AM 017 7:30 (specimen) CDT AM CDT Stephany Farley MD LAB - BLOOD ORDERABLES Performing Organization Address City/State/ZIP Code Phon e Number M [facility] [address] [address] [facility] [address] [place] [address], [place] [phone] (ABNORMAL) Basic metabolic panel (05/11/2017 7:17 AM CDT) Analysis Performed At Path logist Time Signature Sodium 144 133 - 144 [place] mmol/L [facility] Potassium 3.7 3.4 - 5.3 [place] mmol/L [facility] Chloride 112 (H) 94 - 109 [place] mmol/L [facility] Carbon Dioxide 23 20 - 32 [place] mmol/L [facility] Anion Gap 9 3 - 14 [place] mmol/L [facility] Glucose 94 70 - 99 [place] mg/dL [facility] Urea Nitrogen 25 7 - 30 [place] mg/dL [facility] Creatinine 1.56 (H) 0.66 - [place] 1.25 mg/dL [facility] GFR Estimate 44 (L) >60 [place] mL/min/1.[address] Comment: Non GFR Calc GFR Estimate If Black 53 (L) >60 mL/min/1.7m2 [facility] Comment: GFR Calc Calcium 8.5 8.5 - 10.1 mg/dL [facility] Specimen Anatomical Collection Method Collection Time Receive d Time (Source) Location / / Volume Laterality Blood specimen 05/11/2017 7:17 AM 017 7:30 (specimen) CDT AM CDT Isra Greene MD LAB - BLOOD ORDERABLES Performing Organization Address City/State/ZIP Code Phon e Number M [facility] [address] [address] [facility] [address] [address], [place] [phone] (ABNORMAL) CBC with platelets differential (05/10/2017 7:43 AM CDT) [facility] gist Method Time Signature WBC 7.7 4.0 - [place] 11.[address] RBC Count 3.89 (L) 4.4 - 5.9 [place] 10e12/L [facility] Hemoglobin 12.7 (L) 13.3 - [place] 17.7 g/dL [facility] Hematocrit 37.0 (L) 40.0 - [place] 53.0 % [facility] MCV 95 78 - 100 [place] fl [facility] MCH 32.6 26.5 - [place] 33.0 pg [facility] MCHC 34.3 31.5 - [place] 36.5 g/dL [facility] RDW 13.3 10.0 - [place] 15.0 % [facility] Platelet Count 168 150 - [address] Diff Method Automated [place] Method [facility] % Neutrophils 68.9 % [facility] % Lymphocytes 17.9 % [facility] % Monocytes 9.7 % [facility] % Eosinophils 2.6 % [facility] % Basophils 0.3 % [facility] % Immature 0.6 % [place] Granulocytes [facility] Nucleated RBCs 0 0 /100 [facility] Absolute 5.3 1.6 - 8.3 [place] Neutrophil [facility] Absolute 1.4 0.8 - 5.3 [place] Lymphocytes [facility] Absolute 0.8 0.0 - 1.3 [place] Monocytes [facility] Absolute 0.2 0.0 - 0.7 [place] Eosinophils [facility] Absolute 0.0 0.0 - 0.2 [place] Basophils [facility] Abs Immature 0.1 0 - 0.4 [place] Granulocytes [address] [place] [address] Absolute 0.0 [place] Nucleated RBC [facility] Specimen Anatomical Collection Method Collection Time Receive d Time (Source) Location / / Volume Laterality Blood specimen 05/10/2017 7:43 AM 017 8:05 (specimen) CDT AM CDT Isra Greene MD LAB - BLOOD ORDERABLES Performing Organization Address City/State/ZIP Code Phon e Number M [facility] [address] [place] [address] [facility] [address] [address], [place] [phone] (ABNORMAL) Basic metabolic panel (05/10/2017 7:43 AM CDT) Analysis Performed At Path logis Time Signature Sodium 144 133 - 144 [place] mmol/L [facility] Potassium 3.5 3.4 - 5.3 [place] mmol/L [facility] Chloride 111 (H) 94 - 109 [place] mmol/L [facility] Carbon Dioxide 23 20 - 32 [place] mmol/L [facility] Anion Gap 10 3 - 14 [place] mmol/L [facility] Glucose 97 70 - 99 [place] mg/dL [facility] Urea Nitrogen 24 7 - 30 [place] mg/dL [facility] Creatinine 1.49 (H) 0.66 - [place] 1.25 mg/dL [facility] GFR Estimate 46 (L) >60 [place] mL/min/1.[address] Comment: Non GFR Calc GFR Estimate If Black 56 (L) >60 mL/min/1.7m2 [facility] Comment: GFR Calc Calcium 8.6 8.5 - 10.1 mg/dL [facility] Specimen Anatomical Collection Method Collection Time Receive d Time (Source) Location / / Volume Laterality Blood specimen 05/10/2017 7:43 AM 017 8:05 (specimen) CDT AM CDT Isra Greene MD LAB - BLOOD ORDERABLES Performing Organization Address City/State/ZIP Code Phon e Number M [facility] [address] [address] [facility] [address] [address], [place] [phone] MR Brain w/o & w Contrast (05/09/2017 [...] with platelets differential (05/09/2017 7:27 AM CDT) [facility] gist Method Time Signature WBC 9.5 4.0 - [place] 11.0 [facility] 10e9/[facility] RBC Count 3.94 (L) 4.4 - 5.9 [place] 10e12/L [facility] Hemoglobin 12.9 (L) 13.3 - [place] 17.7 g/dL [facility] Hematocrit 37.0 (L) 40.0 - [place] 53.0 % [facility] MCV 94 78 - 100 [place] fl [facility] MCH 32.7 26.5 - [facility] 33.0 pg [facility] MCHC 34.9 31.5 - [place] 36.5 g/dL [facility] RDW 13.1 10.0 - [place] 15.0 % [facility] Platelet Count 185 150 - 450 [place] 10e9/L [facility] Diff Method Automated [place] Method [facility] % Neutrophils 74.3 % [facility] % Lymphocytes 13.7 % [facility] % Monocytes 9.3 % [facility] % Eosinophils 2.2 % [facility] % Basophils 0.1 % [facility] % Immature 0.4 % [place] Granulocytes [facility] Nucleated RBCs 0 0 /100 [facility] Absolute 7.1 1.6 - 8.3 [place] Neutrophil 10e9/L [facility] Absolute 1.3 0.8 - 5.3 [place] Lymphocytes 10e9/L [facility] Absolute 0.9 0.0 - 1.3 [place] Monocytes 10e9/L [facility] Absolute 0.2 0.0 - 0.7 [place] Eosinophils 10e9/L [facility] Absolute 0.0 0.0 - 0.2 [place] Basophils 10e9/L [facility] Abs Immature 0.0 0 - 0.4 [place] Granulocytes 10e9/L [facility] Absolute 0.0 [place] Nucleated RBC [facility] Specimen Anatomical Collection Method Collection Time Receive d Time (Source) Location / / Volume Laterality Blood specimen 05/09/2017 7:27 AM 017 7:40 (specimen) CDT AM CDT Stephany Farley MD LAB - BLOOD ORDERABLES Performing Organization Address City/[facility]/ZIP [facility] Phon e Number [facility] [address] [phone] [facility] [address] [address], [place] [phone] (ABNORMAL) Basic metabolic panel (05/09/2017 7:27 AM CDT) Analysis Performed At Patho logist Time Signature Sodium 142 133 - 144 [place] mmol/L [facility] Potassium 3.5 3.4 - 5.3 [place] mmol/L [facility] Chloride 110 (H) 94 - 109 [place] mmol/L [facility] Carbon Dioxide 21 20 - 32 [place] mmol/L [facility] Anion Gap 11 3 - 14 [place] mmol/L [facility] Glucose 105 (H) 70 - 99 [place] mg/dL [facility] Urea Nitrogen 22 7 - 30 [place] mg/dL [facility] Creatinine 1.44 (H) 0.66 - [place] 1.25 mg/dL [facility] GFR Estimate 48 (L) >60 [place] mL/min/1.[address] Comment: Non GFR Calc GFR Estimate If Black 58 (L) >60 mL/min/1.7m2 [facility] Comment: GFR Calc Calcium 9.1 8.5 - 10.1 mg/dL [facility] Specimen Anatomical Collection Method Collection Time Receive d Time (Source) Location / / Volume Laterality Blood specimen 05/09/2017 7:27 AM 017 7:40 (specimen) CDT AM CDT Stephany Farley MD LAB - BLOOD ORDERABLES Performing Organization Address City/State/ZIP Code Phon e Number M [facility] [address] [place] [address] [facility] [address] [place] [address], [place] [phone] EKG 12-lead, tracing only (05/09/2017 12:59 AM CDT) [facility] Method Time Signature Interpretation ECG Click View RADIOLOGY Image link RESULTS to view waveform and result Specimen (Source) Anatomical Collection Method Collection Time Re ceived Time Location / / Volume Laterality 05/09/2017 12:59 AM CDT Mickey Smith MD ECG ORDERABLES Performing Organization Address City/State/ZIP Code Phon e Number RADIOLOGY RESULTS EKG 12-lead, tracing only (05/08/2017 9:00 PM CDT) [facility] Method Time Signature Interpretation ECG Click [...] Signature Lactic Acid 1.3 0.7 - 2.1 [place] mmol/L [facility] Specimen Anatomical Collection Method Collection Time Receive d Time (Source) Location / / Volume Laterality Blood specimen 05/08/2017 8:45 PM 017 8:58 (specimen) CDT PM CDT Stephany Farley MD LAB - BLOOD ORDERABLES Performing Organization Address City/State/ZIP Code Phon e Number M [facility] [address] [place] [address] [phone] [facility] [address] [place] [address], [place] [phone] (ABNORMAL) N-terminal Pro BNP Inpatient (AM Draw) (05/08/2017 5:00 AM CDT) Analysis Performed At Patho logist Time Signature N-Terminal Pro 2,947 (H) 0 - 900 [place] BNP Inpatient pg/mL [facility] Comment: Reference range shown and results flagge [...] Address City/State/ZIP Code Phon e Number M [facility] [address] [address] [facility] [address] [place] [address], [place] [phone] (ABNORMAL) CBC with platelets differential (05/08/2017 5:00 AM CDT) [facility] Method Time Signature WBC 12.7 (H) 4.0 - [place] 11.0 [facility] 10e9/L [facility] RBC Count 4.00 (L) 4.4 - 5.9 [place] 10e12/L [facility] Hemoglobin 13.0 (L) 13.3 - [place] 17.7 g/dL [facility] Hematocrit 38.3 (L) 40.0 - [place] 53.0 % [facility] MCV 96 78 - 100 [place] fl [facility] MCH 32.5 26.5 - [place] 33.0 pg [facility] MCHC 33.9 31.5 - [place] 36.5 g/dL [facility] RDW 13.1 10.0 - [place] 15.0 % [facility] Platelet Count 162 150 - 450 [place] 10e9/L [facility] Diff Method Automated [place] Method [facility] % Neutrophils 82.5 % [facility] % Lymphocytes 8.9 % [facility] % Monocytes 6.9 % [facility] % Eosinophils 1.2 % [facility] % Basophils 0.1 % [facility] % Immature 0.4 % [place] Granulocytes [facility] Nucleated RBCs 0 0 /100 [facility] Absolute 10.5 (H) 1.6 - 8.3 [place] Neutrophil 10e9/L [facility] Absolute 1.1 0.8 - 5.3 [place] Lymphocytes 10e9/L [facility] Absolute 0.9 0.0 - 1.3 [place] Monocytes 10e9/L [facility] Absolute 0.2 0.0 - 0.7 [place] Eosinophils 10e9/L [facility] Absolute 0.0 0.0 - 0.2 [place] Basophils 10e9/L [facility] Abs Immature 0.1 0 - 0.4 [place] Granulocytes 10e9/L [facility] Absolute 0.0 [place] Nucleated RBC [facility] Specimen Anatomical Collection Method Collection Time Receive d Time (Source) Location / / Volume Laterality Blood specimen 05/08/2017 5:00 AM 017 5:06 (specimen) CDT AM CDT Stephany Farley MD LAB - BLOOD ORDERABLES Performing Organization Address City/State/ZIP Code Phon e Number M [facility] [address] [address] [phone] [facility] [address] [address], [facility] [phone] (ABNORMAL) Basic metabolic panel (05/08/2017 5:00 AM CDT) athologist Signature Sodium 140 133 - 144 [place] mmol/L [facility] Potassium 4.1 3.4 - 5.3 [place] mmol/L [facility] Chloride 109 94 - 109 [place] mmol/L [facility] Carbon Dioxide 20 20 - 32 [place] mmol/L [facility] Anion Gap 11 3 - 14 [place] mmol/L [facility] Glucose 106 (H) 70 - 99 [place] mg/dL [facility] Urea Nitrogen 19 7 - 30 [place] mg/dL [facility] Creatinine 1.24 0.66 - [place] 1.25 mg/dL [facility] GFR Estimate 57 (L) >60 [place] mL/min/1.[address] Comment: Non GFR Calc GFR Estimate If Black 69 >60 mL/min/1.7m2 F [facility] Comment: GFR Calc Calcium 8.8 8.5 - 10.1 mg/dL [facility] Specimen Anatomical Collection Method Collection Time Receive d Time (Source) Location / / Volume Laterality Blood specimen 05/08/2017 5:00 AM 017 5:06 (specimen) CDT AM CDT Stephany Farley MD LAB - BLOOD ORDERABLES Performing Organization Address City/State/ZIP Code Phon e Number M [facility] [address] [address] [facility] [address] [address], U [phone] CT Head w/o Contrast (05/07/2017 5:04 PM [...] 7 4:25 CDT PM CDT Miladys Y[facility]AN [employer] [facility] [employer] POCT Performing Organization Address City/State/ZIP Code Phon e Number FV POINT OF CARE TEST, GLUCOSE POINT OF CARE TEST, GLUCOSE ECHO COMPLETE WITH OPTISON (05/07/2017 11:36 AM CDT) Anatomical Region Laterality Modality Echocardiography Specimen (Source) Anatomical Collection Method Collection Time Re ceived Time Location / / Volume Laterality 05/07/2017 10:53 AM CDT Narrative 05/07/2017 1:17 PM T [id number] [facility]73 [id number]^RUSTY^KAMARI^ [facility] Echocardiography Laboratory [address] [place] [address], [place] [address] Name: SPEEDY MCDUFFIE : 1940 Study Date: 05/07/2017 10:53 AM Age: 76 yrs Gender: Male Patient Location: [facility] Reason For Study: Afib Ordering Physician: [...] note might be different from the original. [id number]^RUSTY^KAMARI^ [facility] Echocardiography Laboratory [address] [place] [id number] Name: SPEEDY MCDUFFIE : 1940 Study Date: 05/07/2017 10:53 AM Age: 76 yrs Gender: Male Patient Location: [facility] Reason For Study: Afib Ordering Physician: [...] MV dec time: 0.20 sec TR max xeina: 182.3 cm/sec TR max P.3 mmHg Lateral [...] Signature Bilirubin Direct 0.2 0.0 - 0.2 [place] mg/dL [facility] Bilirubin Total 0.5 0.2 - 1.3 [place] mg/dL [facility] Albumin 2.6 (L) 3.4 - 5.0 [place] g/dL [facility] Protein Total 6.2 (L) 6.8 - 8.8 [place] g/dL [facility] Alkaline 156 (H) 40 - 150 [place] Phosphatase U/L [facility] ALT 34 0 - 70 U/L [facility] AST 46 (H) 0 - 45 U/L [facility] Specimen Anatomical Collection Method Collection Time Receive d Time (Source) Location / / Volume Laterality Blood specimen 05/07/2017 4:50 AM 017 4:55 (specimen) CDT AM CDT Stephany Farley MD LAB - BLOOD ORDERABLES Performing Organization Address City/State/ZIP Code Phon e Number M [facility] [address] [phone] [facility] [address] [address], [place] [phone] (ABNORMAL) Basic metabolic panel (05/07/2017 4:50 AM CDT) Analysis Performed At Patho logist Time Signature Sodium 143 133 - 144 [place] mmol/L [facility] Potassium 4.8 3.4 - 5.3 [place] mmol/L [facility] Chloride 114 (H) 94 - 109 [place] mmol/L [facility] Carbon Dioxide 20 20 - 32 [place] mmol/L [facility] Anion Gap 9 3 - 14 [place] mmol/L [facility] Glucose 130 (H) 70 - 99 [place] mg/dL [facility] Urea Nitrogen 25 7 - 30 [place] mg/dL [facility] Creatinine 1.52 (H) 0.66 - [place] 1.25 mg/dL [facility] GFR Estimate 45 (L) >60 [place] mL/min/1.[address] Comment: Non GFR Calc GFR Estimate If Black 54 (L) >60 mL/min/1.7m2 F [facility] Comment: GFR Calc Calcium 8.8 8.5 - 10.1 mg/dL [facility] Specimen Anatomical Collection Method Collection Time Receive d Time (Source) Location / / Volume Laterality Blood specimen 05/07/2017 4:50 AM 017 4:55 (specimen) CDT AM CDT Stephany Farley MD LAB - BLOOD ORDERABLES Performing Organization Address City/State/ZIP Code Phon e Number M [facility] [address] [address] [phone] [facility] [address] [address], [facility] [phone] Magnesium (05/07/2017 4:50 AM CDT) P athologist Signature Magnesium 2.3 1.6 - 2.3 [place] mg/dL [facility] Specimen Anatomical Collection Method Collection Time Receive d Time (Source) Location / / Volume Laterality Blood specimen 05/07/2017 4:50 AM 017 4:55 (specimen) CDT AM CDT Stephany Farley MD LAB - BLOOD ORDERABLES Performing Organization Address City/State/ZIP Code Phon e Number M [facility] [address] [place], [place] [address] [phone] [facility] [address] [place] [address], [place] [phone] Phosphorus (05/07/2017 4:50 AM CDT) P athologist Signature Phosphorus 3.3 2.5 - 4.5 [place] mg/dL [facility] Specimen Anatomical Collection Method Collection Time Receive d Time (Source) Location / / Volume Laterality Blood specimen 05/07/2017 4:50 AM 017 4:55 (specimen) CDT AM CDT Stephany Farley MD LAB - BLOOD ORDERABLES Performing Organization Address City/State/ZIP Code Phon e Number M [facility] [address] [place] [address] [facility] [address] [place] [address], [place] [phone] (ABNORMAL) CBC with platelets differential (05/07/2017 4:50 AM CDT) Component Value Ref Test Analysis Performed At [facility] Range Method Time Signature WBC 11.9 (H) 4.0 - [place] 11.0 [facility] 10e9/L [facility] RBC Count 3.79 (L) 4.4 - [place] 5.9 [facility] 10e12/L [facility] Hemoglobin 12.5 (L) 13.3 - [place] 17.7 [facility] g/dL [facility] Hematocrit 37.5 (L) 40.0 - [place] 53.0 % [facility] MCV 99 78 - 100 [facility] MCH 33.0 26.5 - [place] 33.0 pg [facility] MCHC 33.3 31.5 - [place] 36.5 [facility] g/dL [facility] RDW 13.5 10.0 - [place] 15.0 % [facility] Platelet Count 150 150 - [place] 450 [facility] 10e9/L [facility] Diff Method Manual [place] Differential [facility] % Neutrophils 92.0 % [facility] % Lymphocytes 3.0 % [facility] % Monocytes 5.0 % [facility] % Eosinophils 0.0 % [facility] % Basophils 0.0 % [facility] Absolute 10.9 (H) 1.6 - [place] Neutrophil 8.3 [facility] 10e9/L [facility] Absolute 0.4 (L) 0.8 - [place] Lymphocytes 5.3 [facility] 10e9/L [facility] Absolute 0.6 0.0 - [place] Monocytes 1.3 [facility] 10e9/L [facility] Absolute 0.0 0.0 - [place] Eosinophils 0.7 [facility] 10e9/L [facility] Absolute 0.0 0.0 - [place] Basophils 0.2 [facility] [address] RBC Morphology Normal [facility] Platelet Confirming [place] Estimate automated cell [facility] Specimen Anatomical Collection Method Collection Time Receive d Time (Source) Location / / Volume Laterality Blood specimen 05/07/2017 4:50 AM 017 4:55 (specimen) CDT AM CDT Stephany Farley MD LAB - BLOOD ORDERABLES Performing Organization Address City/State/ZIP Code Phon e Number M [facility] [address] [address] [facility] [address] [address], [place] [phone] Calcium (05/06/2017 5:18 PM CDT) P athologist Signature Calcium 8.6 8.5 - 10.1 [place] mg/dL [facility] Specimen Anatomical Collection Method Collection Time Receive d Time (Source) Location / / Volume Laterality Blood specimen 05/06/2017 5:18 PM 017 5:23 (specimen) CDT PM CDT Jaswinder Goins MD LAB - BLOOD ORDERABLES Performing Organization Address City/State/ZIP Code Phon e Number M [facility] [address] [address] [facility] [address] [address], [place] [phone] Magnesium (1200) (05/06/2017 5:18 PM CDT) P athologist Signature Magnesium 1.9 1.6 - 2.3 [place] mg/dL [facility] Specimen Anatomical Collection Method Collection Time Receive d Time (Source) Location / / Volume Laterality Blood specimen 05/06/2017 5:18 PM 017 5:23 (specimen) CDT PM CDT Jaswinder Goins MD LAB - BLOOD ORDERABLES Performing Organization Address City/State/ZIP Code Phon e Number [facility] [address] [place] [address] [phone] [facility] [address] [place] [address], [place] [phone] EKG 12-lead, tracing only (05/06/2017 5:08 PM CDT) Patholo gist Method Time Signature Interpretation ECG Click View RADIOLOGY Image link RESULTS to view waveform and result Specimen (Source) Anatomical Collection Method Collection Time Re ceived Time Location / / Volume Laterality 05/06/2017 5:08 PM CDT Jaswinder Goins MD ECG ORDERABLES Performing Organization Address City/[facility]/ZIP Code Phon e Number RADIOLOGY RESULTS (ABNORMAL) CBC with platelets (05/06/2017 4:45 AM CDT) Analysis Performed At Patho logist Time Signature WBC 14.4 (H) 4.0 - 11.0 [place] 10e9/L [facility] RBC Count 3.85 (L) 4.4 - 5.9 [place] 10e12/L [facility] Hemoglobin 12.5 (L) 13.3 - [place] 17.7 g/dL [facility] Hematocrit 38.3 (L) 40.0 - [place] 53.0 % [facility] MCV 100 78 - 100 [place] fl [facility] MCH 32.5 26.5 - [place] 33.0 pg [facility] MCHC 32.6 31.5 - [place] 36.5 g/dL [facility] RDW 13.3 10.0 - [place] 15.0 % [facility] Platelet Count 135 (L) 150 - 450 [place] 10e9/L [facility] Specimen Anatomical Collection Method Collection Time Receive d Time (Source) Location / / Volume Laterality Blood specimen 05/06/2017 4:45 AM 017 4:54 (specimen) CDT AM CDT Miladys Mccullough MD LAB - BLOOD ORDERABLES Performing Organization Address City/[facility]/ZIP Code Phon e Number M [facility] [address] [place] [address] [facility] [address] [place] [address], [place] [phone] (ABNORMAL) Hepatic panel (05/06/2017 4:45 AM CDT) Analysis Performed At Patho logist Time Signature Bilirubin Direct 0.2 0.0 - 0.2 [place] mg/dL [facility] Bilirubin Total 0.6 0.2 - 1.3 [place] mg/dL [facility] Albumin 2.6 (L) 3.4 - 5.0 [place] g/dL [facility] Protein Total 6.0 (L) 6.8 - 8.8 [place] g/dL [facility] Alkaline 144 40 - 150 [place] Phosphatase U/L [facility] ALT 33 0 - 70 U/L [facility] AST 57 (H) 0 - 45 U/L [facility] Specimen Anatomical Collection Method Collection Time Receive d Time (Source) Location / / Volume Laterality Blood specimen 05/06/2017 4:45 AM 017 4:54 (specimen) CDT AM CDT Miladys Mccullough MD LAB - BLOOD ORDERABLES Performing Organization Address City/State/ZIP Code Phon e Number [facility] [address] [place] [address] [facility] [address] [place] [address], [place] [phone] (ABNORMAL) Basic metabolic panel (05/06/2017 4:45 AM CDT) Analysis Performed At Patho logist Time Signature Sodium 143 133 - 144 [place] mmol/L [facility] Potassium 4.5 3.4 - 5.3 [place] mmol/L [facility] Chloride 115 (H) 94 - 109 [place] mmol/L [facility] Carbon Dioxide 20 20 - 32 [place] mmol/L [facility] Anion Gap 8 3 - 14 [place] mmol/L [facility] Glucose 129 (H) 70 - 99 [place] mg/dL [facility] Urea Nitrogen 39 (H) 7 - 30 [place] mg/dL [facility] Creatinine 1.79 (H) 0.66 - [place] 1.25 mg/dL [facility] GFR Estimate 37 (L) >60 [place] mL/min/1.[address] Comment: Non GFR Calc GFR Estimate If Black 45 (L) >60 mL/min/1.7m2 F [facility] Comment: GFR Calc Calcium 7.8 (L) 8.5 - 10.1 mg/dL [facility] Specimen Anatomical Collection Method Collection Time Receive d Time (Source) Location / / Volume Laterality Blood specimen 05/06/2017 4:45 AM 017 4:54 (specimen) CDT AM CDT Miladys Mccullough MD LAB - BLOOD ORDERABLES Performing Organization Address City/State/ZIP Code Phon e Number [facility] [address] [address] [phone] [facility] [address] [address], [facility] [phone] (ABNORMAL) Glucose by meter (05/06/2017 4:17 AM [...] Time Signature Sodium 144 133 - 144 [place] mmol/L [facility] Potassium 5.0 3.4 - 5.3 [place] mmol/L [facility] Chloride 113 (H) 94 - 109 [place] mmol/L [facility] Carbon Dioxide 21 20 - 32 [place] mmol/L [facility] Anion Gap 10 3 - 14 [place] mmol/L [facility] Glucose 148 (H) 70 - 99 [place] mg/dL [facility] Urea Nitrogen 46 (H) 7 - 30 [place] mg/dL [facility] Creatinine 1.95 (H) 0.66 - [place] 1.25 mg/dL [facility] GFR Estimate 34 (L) >60 [place] mL/min/1.[address] Comment: Non GFR Calc GFR Estimate If Black 41 (L) >60 mL/min/1.7m2 F [facility] Comment: GFR Calc Calcium 7.8 (L) 8.5 - 10.1 mg/dL [facility] Specimen Anatomical Collection Method Collection Time Receive d Time (Source) Location / / Volume Laterality Blood specimen 05/05/2017 10:35 7 (specimen) PM CDT 10:46 PM CDT Miladys Mccullough MD LAB - BLOOD ORDERABLES Performing Organization Address City/State/ZIP Code Phon e Number [facility] [address] [address] [phone] [facility] [address] [address], [place] [phone] (ABNORMAL) Blood gas arterial with oxyhemoglobin (1200) (05/05/2017 8:20 PM CDT) Patholo gist Method Time Signature pH Arterial 7.23 (L) 7.35 - [place] 7.45 pH [facility] pCO2 Arterial 45 35 - 45 [place] mm Hg [facility] pO2 Arterial 159 (H) 80 - 105 [place] mm Hg [facility] Bicarbonate 19 (L) 21 - 28 [place] Arterial mmol/L [facility] FIO2 BIPAP [place] 60 [facility] Oxyhemoglobin 99 92 - 100 [place] Arterial % [facility] Base Deficit Art 8.2 mmol/L [facility] Comment: Reference range: -9.0 to 1.8 Specimen Anatomical Collection Method Collection Time Receive d Time (Source) Location / / Volume Laterality Blood specimen 05/05/2017 8:20 PM 017 8:25 (specimen) CDT PM CDT Aubrey Irvin MD LAB - BLOOD ORDERABLES Performing Organization Address City/State/ZIP Code Phon e Number [facility] [address] [place] [address] [facility] [address] [place] [address], [facility] [phone] (ABNORMAL) Glucose by meter (05/05/2017 8:06 PM [...] PM CDT Miladys Mccullough MD LAB - [employer] POCT Performing Organization Address City/State/ZIP Code Phon [...] negative amphetamine is 500 ng/mL or less. [facility] Barbiturates Qual Negative NEG [facility] Urine Cutoff for a negative barbiturate is 200 ng/mL or less. [facility] Benzodiazepine Negative NEG [facility] Qual Urine Cutoff for a negative benzodiazepine is 200 ng/mL or less . [facility] Cannabinoids Qual Negative NEG [facility] Urine Cutoff for a negative cannabinoid is 50 ng/mL or less. [facility] Cocaine Qual Negative NEG [facility] Urine Cutoff for a negative cocaine is 300 ng/mL or less. [facility] Opiates Positive NEG [facility] Qualitative Urine Cutoff for a positive opiat e is greater than 300 ng/mL. This is an unconfirmed [facility] screening result to be used for medical purposes only. HOSPITAL (A) PCP Qual Urine Negative NEG [facility] Cutoff for a negative PCP is 25 ng/mL or less. [facility] Specimen Anatomical Collection Method Collection Time Receive d Time (Source) Location / / Volume Laterality 05/05/2017 5:20 PM 7 7:11 CDT PM CDT Miladys Mccullough MD LAB - URINE ORDERABLES Performing Organization Address City/State/ZIP Code Phon e Number [facility] [address] [place] [address] [phone] [facility] [address] [place] [address], [place] [phone] (ABNORMAL) Urine Microscopic (05/05/2017 5:20 PM CDT) [facility] [employer] Method Time Signature WBC Urine O - 2 0 - 2 [place] /HPF [facility] RBC Urine O - 2 0 - 2 [place] /HPF [facility] Cast Urine 2-5 0 - 2 [place] HYALINE /LPF [facility] Bacteria Urine Few (A) NEG /HPF [facility] Mucous Urine Present (A) NEG /LPF [facility] Specimen Anatomical Collection Method Collection Time Receive d Time (Source) Location / / Volume Laterality 05/05/2017 5:20 PM 7 5:29 CDT PM CDT Miladys Mccullough MD LAB - URINE ORDERABLES Performing Organization Address City/State/ZIP Code Phon e Number [facility] [address] [place], [place] [address] (ABNORMAL) UA reflex to Microscopic and Culture (05/05/2017 5:20 PM CDT) Component Value Ref Test Analysis Performed At [facility] [employer] Range Method Time Signature Color Urine Yellow [facility] Appearance Urine Clear [facility] Glucose Urine Negative NEG [place] mg/dL [facility] Bilirubin Urine Negative NEG [facility] Ketones Urine Negative NEG [place] mg/dL [facility] Specific [place] 1.020 1.003 - [place] Urine 1.035 [facility] Blood Urine Negative NEG [facility] pH Urine 5.5 5.0 - [place] 7.0 pH [facility] Protein Albumin 30 (A) NEG [place] Urine mg/dL [facility] Urobilinogen 0.2 0.2 - [place] Urine 1.0 [facility] EU/dL [place] Nitrite Urine Negative NEG [facility] [place] Leukocyte Negative NEG [place] Esterase Urine [facility] [place] Source Catheterized [place] Urine [facility] [place] Specimen Anatomical Collection Method Collection Time Receive d Time (Source) Location / / Volume Laterality 05/05/2017 5:20 PM 7 5:29 CDT PM CDT Miladys Mccullough MD LAB - URINE ORDERABLES Performing Organization Address City/[facility]/ZIP Code Phon e Number [facility] [place] [address] [place] [address] Blood culture (05/05/2017 4:30 PM CDT) [facility] gist Method Time Signature Specimen Blood Left [facility] Special Aerobic and [place] Requests anaerobic [facility] bottles [place] received Culture Micro No [...] MICRO GENERAL ORDERABL ES Performing Organization Address City/[facility]/ZIP [facility] Phon e Number INFECTIOUS DISEASES [address] [place] [address] DIAGNOSTIC LABORATORY, [address] [id number] [address] [place] [address], [facility] [phone] [place] INFECTIOUS DISEASE [address] [place] [address], [facility] DIAGNOSTIC LABORATORY Lactic acid whole blood (05/05/2017 3:50 PM CDT) P athologist Signature Lactic Acid 1.5 0.7 - 2.1 [place] mmol/L [facility] Specimen Anatomical Collection Method Collection Time Receive d Time (Source) Location / / Volume Laterality 05/05/2017 3:50 PM 7 4:06 CDT PM CDT Leesa Martinez MD LAB - BLOOD ORDERABLES Performing Organization Address City/State/ZIP Code Phon e Number [facility] [address] [address] [phone] [facility] [address] [address], [facility] [phone] Blood culture (05/05/2017 3:45 PM CDT) [facility] gist Method Time Signature Specimen Blood Left [facility] Special Aerobic and [place] Requests anaerobic [facility] ED bottles [place] received Culture [...] Code Phon e Number INFECTIOUS DISEASES [address] [place] [address] DIAGNOSTIC LABORATORY, [address] [address], [facility] [address] [address], [facility] [place] INFECTIOUS DISEASE [address] [place], [place] [address] DIAGNOSTIC LABORATORY Chest XR, 1 view [...] Signature pH Arterial 7.22 (L) 7.35 - [place] 7.45 pH [facility] pCO2 Arterial 48 (H) 35 - 45 [place] mm Hg [facility] pO2 Arterial 112 (H) 80 - 105 [place] mm Hg [facility] Bicarbonate 20 (L) 21 - 28 [place] Arterial mmol/L [facility] Oxyhemoglobin 97 92 - 100 [place] Arterial % [facility] Base Deficit Art 7.5 mmol/L [facility] Comment: Reference range: -9.0 to 1.8 Specimen Anatomical Collection Method Collection Time Receive d Time (Source) Location / / Volume Laterality Blood specimen 05/05/2017 3:33 PM 017 3:54 (specimen) CDT PM CDT Leesa Martinez MD LAB - BLOOD ORDERABLES Performing Organization Address City/State/ZIP Code Phon e Number M [facility] [address] [address] [facility] [address] [address], U [phone] Troponin POCT (05/05/2017 3:29 PM CDT) P [...] LAB - BEAKER POCT Performing Organization Address [facility] Phon e Number FV POINT OF CARE TEST, HANDHELD METER POINT OF CARE TEST, HANDHELD METER EKG 12 lead (05/05/2017 3:24 PM CDT) [facility] gist Method Time Signature Interpretation ECG Click View RADIOLOGY Image link RESULTS to view waveform and result Specimen (Source) Anatomical Collection Method Collection Time Re ceived Time Location / / Volume Laterality 05/05/2017 3:24 PM CDT Leesa Martinez MD ECG ORDERABLES Performing Organization Address City/[facility]/ZIP Code Phon e Number RADIOLOGY RESULTS (ABNORMAL) Glucose by meter (05/05/2017 3:23 PM CDT) P athologist Signature Glucose 116 (H) 70 - 99 POINT OF CARE mg/dL TEST, GLUCOSE Specimen Anatomical Collection Method Collection Time Receive d Time (Source) Location / / Volume Laterality 05/05/2017 3:23 PM 7 3:25 CDT PM CDT Provider Unknown LAB - BEAKER POCT Performing Organization Address City/[facility]/ZIP Code Phon e Number FV POINT OF CARE TEST, GLUCOSE POINT OF CARE TEST, GLUCOSE (ABNORMAL) CK total (05/05/2017 3:20 PM CDT) P athologist Signature CK Total 325 (H) 30 - 300 [place] U/L [facility] Specimen Anatomical Collection Method Collection Time Receive d Time (Source) Location / / Volume Laterality 05/05/2017 3:20 PM 7 3:31 CDT PM CDT Leesa Martinez MD LAB - BLOOD ORDERABLES Performing Organization Address City/State/ZIP Code Phon e Number M [facility] [address] [place] [address] [facility] [address] [place] [address], [place] [phone] Alcohol ethyl (05/05/2017 3:20 PM CDT) P athologist Signature Ethanol g/dL <0.01 <0.01 g/dL [facility] Specimen Anatomical Collection Method Collection Time Receive d Time (Source) Location / / Volume Laterality 05/05/2017 3:20 PM 7 3:31 CDT PM CDT Leesa Martinez MD LAB - BLOOD ORDERABLES Performing Organization Address City/State/ZIP Code Phon e Number M [facility] [address] [place] [address] [phone] [facility] [address] [place] [address], [place] [phone] Salicylate level (05/05/2017 3:20 PM CDT) [facility] gist Method Time Signature Salicylate <2 mg/dL [facility] Therapeutic: ?<20 [facility] [place] Anti inflammatory: ??15-30 [facility] Specimen Anatomical Collection Method Collection Time Receive d Time (Source) Location / / Volume Laterality Blood specimen 05/05/2017 3:20 PM 017 3:31 (specimen) CDT PM CDT Leesa Martinez MD LAB - BLOOD ORDERABLES Performing Organization Address City/State/ZIP Code Phon e Number M [facility] [address] [place] [address] [phone] [facility] [address] [address], [place] [phone] Acetaminophen level (05/05/2017 3:20 PM CDT) Component Value Ref Test Analysis Performed At Patholo gist Range Method Time Signature Acetaminophen <2 mg/L [facility] Level Therapeutic range: 10-20 mg/L [facility] Specimen Anatomical Collection Method Collection Time Receive d Time (Source) Location / / Volume Laterality Blood specimen 05/05/2017 3:20 PM 017 3:31 (specimen) CDT PM CDT Leesa Martinez MD LAB - BLOOD ORDERABLES Performing Organization Address City/State/ZIP Code Phon e Number M [facility] [address] [place] [address] [facility] [address] [address], [place] [phone] (ABNORMAL) Comprehensive metabolic panel (05/05/2017 3:20 PM CDT) Analysis Performed At [facility] logist Time Signature Sodium 141 133 - 144 [place] mmol/L [facility] Potassium 4.4 3.4 - 5.3 [place] mmol/L [facility] Chloride 107 94 - 109 [place] mmol/L [facility] Carbon Dioxide 23 20 - 32 [place] mmol/L [facility] Anion Gap 11 3 - 14 [place] mmol/L [facility] Glucose 126 (H) 70 - 99 [place] mg/dL [facility] Urea Nitrogen 48 (H) 7 - 30 [place] mg/dL [facility] Creatinine 2.41 (H) 0.66 - [place] 1.25 mg/dL [facility] GFR Estimate 26 (L) >60 [place] mL/min/1.[address] Comment: Non GFR Calc GFR Estimate If Black 32 (L) >60 mL/min/1.7m2 F [facility] Comment: GFR Calc Calcium 8.6 8.5 - 10.1 mg/dL [facility] Bilirubin Total 0.5 0.2 - 1.3 mg/dL [facility] Albumin 3.3 (L) 3.4 - 5.0 g/dL [facility] Protein Total 6.9 6.8 - 8.8 g/dL [facility] Alkaline Phosphatase 166 (H) 40 - 150 U/L [facility] ALT 29 0 - 70 U/L [facility] AST 22 0 - 45 U/L [facility] Specimen Anatomical Collection Method Collection Time Receive d Time (Source) Location / / Volume Laterality Blood specimen 05/05/2017 3:20 PM 017 3:31 (specimen) CDT PM CDT Leesa Martinez MD LAB - BLOOD ORDERABLES Performing Organization Address City/State/ZIP Code Phon e Number M [facility] [address] [address] [facility] [address] [address], [place] [phone] (ABNORMAL) CBC with platelets differential (05/05/2017 3:20 PM CDT) [facility] gist Method Time Signature WBC 17.7 (H) 4.0 - [place] 11.0 [facility] 10e9/L [facility] RBC Count 4.32 (L) 4.4 - 5.9 [place] 10e12/L [facility] Hemoglobin 14.3 13.3 - [place] 17.7 g/dL [facility] Hematocrit 42.9 40.0 - [place] 53.0 % [facility] MCV 99 78 - 100 [facility] MCH 33.1 (H) 26.5 - [place] 33.0 pg [facility] MCHC 33.3 31.5 - [place] 36.5 g/dL [facility] RDW 13.0 10.0 - [place] 15.0 % [facility] Platelet Count 170 150 - 450 [place] 10e9/L [facility] Diff Method Automated [facility] % Neutrophils 83.6 % [facility] % Lymphocytes 9.3 % [facility] % Monocytes 6.0 % [facility] % Eosinophils 0.7 % [facility] % Basophils 0.1 % [facility] % Immature 0.3 % [place] Granulocytes [facility] Nucleated RBCs 0 0 /100 [facility] Absolute 14.8 (H) 1.6 - 8.3 [place] Neutrophil 10e9/L [facility] Absolute 1.7 0.8 - 5.3 [place] Lymphocytes 10e9/L [facility] Absolute 1.1 0.0 - 1.3 [place] Monocytes 10e9/L [facility] Absolute 0.1 0.0 - 0.7 [place] Eosinophils 10e9/L [facility] Absolute 0.0 0.0 - 0.2 [place] Basophils 10e9/L [facility] Abs Immature 0.1 0 - 0.4 [place] Granulocytes 10e9/L [facility] Absolute 0.0 [place] Nucleated RBC [facility] Specimen Anatomical Collection Method Collection Time Receive d Time (Source) Location / / Volume Laterality Blood specimen 05/05/2017 3:20 PM 017 3:31 (specimen) CDT PM CDT Leesa Martinez MD LAB - BLOOD ORDERABLES Performing Organization Address City/State/ZIP Code Phon e Number M [facility] [address] [address] [phone] [facility] [address] [address], [facility] [phone] documented in this encounter Visit Diagnoses Diagnosis [...] and gently remove. Place on to banner immediately. Administration with liquid unnecessary oxyCODONE (ROXICODONE) [...] mg 0825 (Given - Provider: Aubrey Morales RN)6429 (Given - Provider: Rosette Reese RN)1906 (Given - Provider: Rosette Reese RN) 0921 [...] Morales RN) 0914 (Giv en - Provider: Trores Altamirano) 10 mg, Oral, DAILY, First dose [...] Irritant.
documented in this encounter Care Teams Clerk General Office Relationship Specialty Start Date End Date Eduardo Coleyit PCP - General Family Practice 05/05/17 05/11/[address] [address] [facility] PCP - General 05/12/17 [address] [place] [address] documented as of this encounter
--- OUTSIDE RECORDS SUMMARY | 2022-07-03 14:27 | XMS_ITS | Encounter Summary ---
:1940 Author Organization [place] Address [address] [place] [address] Care Team Providers Name Role Phone Clinic, [facility] Primary Care Provider [phone] Reason for Visit Reason Onset Date Comments Medication Question 05/13/2017 meds Encounter Details Date Type Department Care Team Description 05/13/[address] [facility] Heart Abimbola Brown M edication Question Clinic Tram GARCIA (meds) [address] [facility] [address] [place] [address] Social History Tobacco Use Types Packs/Day [...] LM for her to call this senior technical writer back. JNelsonRN documented in this encounter Plan of Treatment Not on filedocumented as of this encounter Visit Diagnoses Not on filedocumented in this encounter Care Teams Shipping And Receiving Weigher Relationship Specialty Start Date End Date Clinic, [facility] PCP - General 05/12/17 [address] [place] [address] documented as of this encounter
--- OUTSIDE RECORDS SUMMARY | 2022-07-03 14:27 | XMS_ITS | Encounter Summary ---
:1940 Author Organization [place] Address [address] [place] [address] Care Team Providers Name Role Phone Clinic, [facility] Primary Care Provider [phone] Reason for Visit Reason Onset Date Comments Previsit 11/10/[address] Fatuma ng--visit 11/11/17 Encounter Details Date Type Department Care Team Description 11/10/2017 Telephone [facility] Ebony Arnold, Previsit (New patient Clinic Linwood RN for Dr Lugo--visit [address] [facility] 11/11/17) [address] [address] Social History Tobacco Use Types [...] reflect what patient is taking. JOSE Shahid K DRIVER documented in this encounter Plan of Treatment Not on filedocumented as of this encounter Visit Diagnoses Not on filedocumented in this encounter Care Teams Graduate Student Relationship Specialty Start Date End Date Clinic, [facility] PCP - General 05/12/[address] [place] [address] documented as of this encounter
--- OUTSIDE RECORDS SUMMARY | 2022-07-03 14:27 | XMS_ITS | Encounter Summary ---
:1940 Author Organization [place] Address [facility] [place] [address] Care Team Providers Name Role Phone [facility], [facility] Primary Care Provider [phone] Reason for Referral - Closed Specialty Diagnoses / Procedures Referred By Contact Refer red To Contact Diagnoses Paroxysmal atrial fibrillation (H) Radha Galan MD Procedures Zio Patch Monitor [address] [place] [address] Referral ID Status Reason Start Date Expiration Date Visits Requ ested Visits Authorized [id number] Closed 11/25/2017 11/25/2018 1 1 MODYNAMIC PHYSICIST Reason for Visit Reason Comments Atrial Fib new Dx - Closed Specialty Diagnoses / Procedures Referred By Contact Refer red To Contact Diagnoses Paroxysmal atrial fibrillation (H) Radha Galan MD [address] [place] [address] Referral ID Status Reason Start Date Expiration Date Visits Requ ested Visits Authorized [id number] Closed 06/11/2017 06/11/2018 1 1 Encounter Details Date Type Department Care Team Description 11/11/[address] [facility] Radha Galan Paroxys [facility] atrial Heart Clinic Tram WELSH fibrillation (H) [address] [facility] [address] [address] [place] [address] [phone] Social History Tobacco Use Types Packs/Day Years [...] Comments Blood Pressure 146/78 11/11/2017 8:56 AM THERMODYNAMIC PHYSICIST Pulse 54 11/11/2017 8:56 AM THERMODYNAMIC PHYSICIST Temperature - - Respiratory Rate - - Oxygen Saturation - - Inhaled Oxygen Concentration - - Weight 88 kg (194 lb) 11/11/2017 8:56 AM THERMODYNAMIC PHYSICIST Height 170.2 cm (5' 7.01) 11/11/2017 8:56 AM THERMODYNAMIC PHYSICIST Body Mass Index 30.38 11/11/2017 8:56 AM THERMODYNAMIC PHYSICIST documented in this encounter Progress Notes Radha [...] discharged on amiodarone and did see a client service professional over at [facility] for followup. He was recommended to wear a 24-hour Holter monitoring which demonstrated no evidence of atrial tachyarrhythmias. The patient checked his blood pressure twice a day and noticed heart rate in the 50s. He is doing quite well otherwise. Denies any shortness of breath, orthopnea, PND. His blood pressureseemed to be difficult to control and has seen a band shover for that as well as for his [...] MD MT: SEMAJ Name: SPEEDY HENDRICKS Account: [id number] : 1940 Service Date: 11/11/2017 Document: [id number] MODYNAMIC PHYSICIST Radha Galan MD - 11/11/2017 8:45 AM CST HPI and Plan: See dictation [id number] Orders Placed This Encounter Procedures ??? EKG [...] Galan, MD [address] [place] [address] MODYNAMIC PHYSICIST documented in this encounter Plan of Treatment Not on filedocumented as of this encounter Procedures Procedure Name Priority Date/Time Associated Diagnosis Comme nts EKG 12-LEAD Routine 11/12/2017 10:13 Paroxysmal atrial Result s for this COMPLETE W/READ - AM THERMODYNAMIC PHYSICIST fibrillation (H) proced ure are in CLINICS the results section. documented in this encounter Results Zio Patch Monitor (11/22/2017) Narrative [facility] - 11/22/2017 [facility] [address] [facility] [address] [facility] [address] 11/17/2017 Patient: ??Speedy Hendricks Chart: [id number] : ??1940 Age: ??77 year old Sex: ??male Procedure: ??ZioPatch Monitor. Rehabilitation Specialist performing hook-up: ??Kiarra Rubalcava Radha Gamboa MD CV CARDIAC SERVICES ORDERABL ES Performing Organization Address City/State/ZIP Code Phon e Number RAD[facility] EKG 12-lead complete w/read - Clinics (performed today) (11/12/2017 10:13 AM THERMODYNAMIC PHYSICIST) Narrative This result has an attachment that is no t available. Radha Gamboa MD ECG ORDERABLES documented in this encounter Visit Diagnoses Diagnosis Paroxysmal atrial fibrillation (H) Atrial fibrillation Paroxysmal atrial fibrillation (H) Atrial fibrillation documented in this encounter Care Teams Public Information Relations Manager Relationship Specialty Start Date End Date Clinic, [facility] PCP - General 05/12/[address] [place] [address] documented as of this encounter
--- OUTSIDE RECORDS SUMMARY | 2022-07-03 14:27 | XMS_ITS | Encounter Summary ---
:1940 Author Organization [place] Address [address] [place] [address] Care Team Providers Name Role Phone Celina Coley Primary Care Provider Reason for Visit Auth/Cert Specialty Diagnoses / Procedures Referred By Contact Refer red To Contact Intensive Care Diagnoses Opioid overdose, accidental or unintentional, initial encounter (H) Aspiration pneumonia, unspecified aspiration pneumonia type, unspecified laterality, unspecified part of lung (H) Unresponsiveness Intensive Care [address] [address] Phone: Referral ID Status Reason Start Date Expiration Date Visits Requ ested Visits Authorized [id number] 1 1 Encounter Details Date Type Department Care Team Description 05/06/2017 Anesthesia Event [facility] TIMBER RIDER ASSOCIATE BRAND MANAGER [address] [place] [address] ANES [phone] [place] [address] (Wo rk) Anesthesia Record Procedure Summary Procedure Name Responsible Anesthesiologist Anesthesia Start Ti me Anesthesia Stop Time IV START 05/06/17212005/06/172140 Events Date Time Event Comment 05/06/20172120 An Start 2140 Quick Note Diagnosis: Venou s Insufficiency Procedure: IV Start Ordering Yadirai an: Dr Rodriguez Location:[facility] ICU 357 2141 An Stop Electronically [...] RN Darby, Timo thy J, (difficulty standing, TIMBER RIDER CUSTODIAN SUPERVISOR alerted mental status) Peripheral IV 05/06/17; 2135; 20 G; 05/06/17 2135 by 05/08/17 0300 by Right; Lower forearm; Albino Benavidez APRN Graa lum, Scott, RN Alcohol; Injectable; ASSOCIATE BRAND MANAGER Tolerated well Peripheral IV 05/06/17; 2140; 20 G; 05/06/17 2140 by 05/08/17 1619 by Right; Upper forearm; Albino Benavidez APRN With am Rosette Alcohol; Injectable; ASSOCIATE BRAND MANAGER JOSE Clifton Tolerated well documented in [...] on filedocumented in this encounter Care Teams Esl Tutor Relationship Specialty Start Date End Date Celina Coley PCP - General Family Practice 05/05/17 05/11/[address] [address] documented as of this encounter
--- OUTSIDE RECORDS SUMMARY | 2022-07-03 14:28 | XMS_ITS | Encounter Summary ---
:1940 Author Organization [place] Address [address] [place] [address] Care Team Providers Name Role Phone Primary DrDipak MD Primary Care Provider Unavailable Celina Coley Primary Care Provider [facility] [place] Primary Care Provider [phone] Jon White MD Unavailable [phone] Ramiro Loco MD Unavailable Encounter Details Date Type Department Care Team Description 04/18/2014 [facility] Provider, [facility] Information Management [address] [facility] [address] [place] [address] Social History Tobacco Use Types Packs/Day Years [...] documented as of this encounter Care Teams Light Rail Vehicle Operator Relationship Specialty Start Date End Date Primary Dipak Kasper MD PCP - General 09/21/1204/18 Celina Coley PCP - General Family Practice 05/05/17 05/11/[address] [address] Kehinde Portillo PCP - General 05/12/[address] [address] Jon White Assigned Surgical Provider 08/10/20 12/08/20 MD Aubrey [address] [place] [address] Ramiro Loco MD Assigned Heart and 08/10/20 05/11/21 [address] Vascular Provider [place] [address] documented as of this encounter
--- OUTSIDE RECORDS SUMMARY | 2022-07-03 14:28 | XMS_ITS | Encounter Summary ---
:1940 Author Organization [place] Address [address] [place] [address] Care Team Providers Name Role Phone Primary Dr, Unknown MD Primary Care Provider Unavailable Reason for Visit Reason Onset Date Comments Patient/info Update 10/04/2012 Encounter Details Date Type Department Care Team Description 10/04/2012 Telephone [facility] Sal Chaparro, Patient/info Update Yumiko WELSH MD [address] [facility] [address] [facility] [phone] [place], [place] [id number] (Wo rk) Social History Tobacco Use Types [...] Sal Chaparro, DPJami - 10/05/2012 11:14 AM FAMILY LAW SPECIALIST Spoke w/ pt and we will check him today (10/05/12) @ 11:30 LY LAW SPECIALIST Telephone Encounter - Amber Mead - 10/04/2012 11:[address] Nesbitt. ALINE [place]. Please read. Message below. Let me know if I can assist at all. Amber Mead CMA ([facility]) LY LAW SPECIALIST Telephone Encounter - Sandra Melgar - 10/04/2012 10:[address] Nesbitt has placed this rx. Rx faxed. Jaime Melgar CMA ([facility]) LY LAW SPECIALIST Telephone Encounter - Amber Mead - [...] but patient feels lousy Spoke with DPM qa automation developer, Dr. Green. He recommended Bactrim DS BID x 10 days Called RX into [facility] per patient's daughter request. Called Raquel back and left message on cell phone ([phone]), offered 230 appointment in [place] with Dr. Green if would like. Otherwise, f/u with Dr. Chaparro this week. Patient's daughter is requesting refill of Pavo [phone] - , can you approve and I can call in? Amber Mead CMA ([facility]) LY LAW SPECIALIST documented in this encounter Plan of Treatment Not on filedocumented as of this encounter Visit Diagnoses Diagnosis Ingrowing nail - Primary Pain in limb documented in this encounter Care Teams Refractory Bricklayer Relationship Specialty Start Date End Date Primary Dr, Unknown, MD PCP - General 09/21/1204/18 documented as of this encounter
--- OUTSIDE RECORDS SUMMARY | 2022-07-03 14:28 | XMS_ITS | Encounter Summary ---
:1940 Author Organization [place] Address [address] [place] [address] Care Team Providers Name Role Phone Primary Dr, Unknown Primary Care Provider Unavailable Reason for Visit Reason Onset Date Comments Referral 10/16/2016 [place] Encounter Details Date Type Department Care Team Description 10/16/2016 Telephone [facility] Jon White Referral ([place]) [facility] [address] [place] [phone] [place], [place] [phone] (Wo rk) Social History Tobacco Use Types [...] get Valium before procedure and will have coal tram driver with him. MOHS at 10 45 am. PATIAL EXTRACTOR ANALYSIS Telephone Encounter - Aruna Rodriguez - 10/16/2016 3:11 PM CST Pt returned RN (Lisa) phone call. Please call again Thursday10/17/16. 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 Pt has appt at 10 45 pm on for second opinion on skin cancer and questions. Left message for pt to clarify whether heis planning to come in for MOHS appt or just regular appt. PATIAL EXTRACTOR ANALYSIS documented in this encounter Plan of Treatment Not on filedocumented as of this encounter Visit Diagnoses Not on filedocumented in this encounter Care Teams Automobile Insurance Claim Examiner Relationship Specialty Start Date End Date Primary Dipak Kasper MD PCP - General 09/21/1204/18 documented as of this encounter
--- OUTSIDE RECORDS SUMMARY | 2022-07-03 14:28 | XMS_ITS | Encounter Summary ---
:1940 Author Organization [place] Address [address] [place] [address] Care Team Providers Name Role Phone Primary DrDipak MD Primary Care Provider Unavailable Celina Coley Primary Care Provider [facility] Primary Care Provider [phone] Jon White MD Unavailable [phone] Ramiro Loco MD Unavailable Encounter Details Date Type Department Care Team Description 05/03/2014 Surgery - [facility] Hang Mcclure, [facility] OR [facility] [address] [place] [address] 17 [facility] 31 [address] [place] [address] [phone] (Wo rk) Social History Tobacco Use Types [...] documented as of this encounter Care Teams Lpn Or Medical Assistant Relationship Specialty Start Date End Date Primary Dipak Kasper MD PCP - General 09/21/1204/18 Celina Coley PCP - General Family Practice 05/05/17 05/11/[address] [address] [facility] PCP - General 05/12/[address] [address] Jon White Assigned Surgical Provider 08/10/20 12/08/20 MD Aubrey [address] [place] [address] Ramiro Loco MD Assigned Heart and 08/10/20 05/11/21 [address] [place] 340 Vascular Provider [place]LANDO GORDON [address] documented as of this encounter
--- OUTSIDE RECORDS SUMMARY | 2022-07-03 14:28 | XMS_ITS | Encounter Summary ---
:1940 Author Organization [place] Address [address] [place] [address] Care Team Providers Name Role Phone Primary Dr, Unknown Primary Care Provider Unavailable Encounter Details Date Type Department Care Team Description 11/29/2014 - Hospital Encounter [facility] Hang Mcclure phoebe stenosis, lumbar region, without neurogenic claudication; 12/01/2014 [facility] MD Koki AAA (abdominal aortic aneurysm) (H); [place] [address] [facility] Diabetes mellitus (H); 1925 [facility] Hypertension; Drive [address] BPH (benign prostatic hyperp lasia); [place], [place] ROGERIO 31 HLD (hyperlipidemia); [address] [place], [place] Hyperglycemia, drug-induced; [phone] [id number] MRSA (methicillin resistant staph aureus ) [...] 90.7 kg (200 lb) 11/29/2014 9:33 AM SACK KEEPER Height 180.3 cm (5' 11) 11/29/2014 9:33 AM SACK KEEPER Body Mass Index 27.89 11/29/2014 9:33 AM SACK KEEPER documented in this encounter Discharge Summaries Dimas [...] the office in about 2 weeks. Call [phone] if patient needs to schedule appointment. Dimas Hale PA-C Date: 12/01/2014 Time: 7:49 AM KEEPER documented in this encounter Medications at Time [...] CULTURE - Final result (09/22/2012 3:43 PM SACK KEEPER) [facility] Records Component Value Range SOURCE Nasal [...] Fowler MD Date: 12/01/2014 Time: 2:00 PM [facility] KEEPER Dimas Hale - 12/01/2014 7:25 AM CST [...] Low Dias - 11/30/2014 2:35 PM CST GLOBAL CONSUMER SECTOR VICE PRESIDENT TREATMENT NOTE Name: Speedy Hendricks : 1940 Acupuncture Treatment Patient Type: Orthopedic Intervention Reason: Urinary Retention Patient complaint:: Unable to void Acupunture (Points):: [place] 3, 4, 6, St 29 Risks and benefits discussed. Low Ramirez L.Ac. Date: 11/30/2014 Time: 2:36 PM KEEPER Marcelino Finch MD - 11/30/2014 8:13 AM CST [facility] Medicine Service Progress Note Assessment/Plan: -Lumbar stenosis, [...] Radiology Radiology Results: personally reviewed the impression KEEPER Radha Grey - 11/29/2014 5:01 PM CST Acute Pain Management Team Consulting provider: Dr. Mcclure/Dr. Finch POD#:0 Procedure: LEFT L2-3, L3-4 POSTERIOR FUSION AND L3-4 REVISION DECOMPRESSION Home pain regimen: Opioid status: Tolerant Deale 7.5/325 mg-1 tabs q 4 -6 h prn-pt reports taking no more than 6 /day Oxycodone 2.5-5 mg po q 4 h prn_juse recent Rx due to increased nerve pain L leg Arthrotec 75 mg po bid prn Current pain regimen: Will change standard regiment of oxycodone scheduled and oxycodone prn to Deale 7.5/325 and prn oxycodone. Dilaudid IV bumps [...] tolerant , especially whenviewing Rx history of Deale 7.5/325, but he and family report him not taking more than 6 tablets perday of Deale 7.5/325, and have new Rx for oxycodone, but reports only taking 2.5 mg dose at a time. He is very sedated now, and will start out conservatively, not knowing exactly how much Deale he was taking at home. Pt and family reported he is very sensitive to oxycodone, but does well on Deale. Assessment/Plan: Deale 7.3/325 1- tablet every 4 hours Oxycodone -2.5 -5 mg po q 4 h prn BTP Discussed with Dr. Finch Will follow pt Radha Grey RPh 11/29/2014 5:02 PM KEEPER Marcelino Finch MD - 11/29/2014 4:45 PM CST [facility] Medicine Service Progress Note Assessment/Plan: -Lumbar stenosis, [...] Radiology Radiology Results: personally reviewed the impression KEEPER Saman Bernard - 11/29/2014 10:38 AM CST [facility]) Hopes: Pt hopes to have his leg pain stop after surgery. Needs: Pt needs support of family. Resources: pt has his spouse and several family members in the room with him as resources and support. Additional Notes: pt joked with this food service aide about Gaines's Day and Saint Yonatan's Day; to thischaplain, having a sense of humor is an additional resource for this patient. Prayer declined, visitonly. Follow up: None planned. Spiritual care upon request. KEEPER documented in this encounter H&P Notes Hang Mcclure - 11/29/2014 10:46 AM CST The patient's history has been reviewed and there are no pertinent changes KEEPER documented in this encounter Miscellaneous Notes Op [...] was seen in the preop area of [facility] today. Low back was marked and the [...] two 60 mm rods. The system was [employer] TSRH 3DX. We decorticated the facet joints [...] the instrumentation. All instrumentation was tightened to insurance loss control surveyor's specifications. We then closed the deep fascia [...] used during this case [employer] TSRH 3DX KEEPER documented in this encounter Plan of Treatment Not on filedocumented as of this encounter Procedures Procedure Name Priority Date/Time Associated Diagnosis Comme nts CROSSMATCH RED CELLS Routine 12/02/2014 10:40 Res ults for this AM SACK KEEPER procedure are i n the results section. CROSSMATCH RED CELLS Routine 12/02/2014 10:40 Res ults for this AM SACK KEEPER procedure are i n the results section. XR LUMBAR SPINE PORT Routine 11/29/2014 1:38 Spinal stenosis, Results for this 2/3 VIEWS PM SACK KEEPER lumbar region, procedure are in without neurogenic the resul ts claudication section. XR SURGERY CHRIS FLUORO Routine 11/29/2014 1:37 Spinal stenosis , Results for this GREATER THAN 5 MIN PM SACK KEEPER lumbar region, procedu re are in without neurogenic the resul ts claudication section. RED CELL ANTIGEN Routine 11/29/2014 10:17 Results for this TYPING NON ABO AM SACK KEEPER procedure are in the results section. ANTIBODY Routine 11/29/2014 10:17 Results for this IDENTIFICATION AM SACK KEEPER procedure are in the results section. EKG CARDIAC - HIM SCAN 11/29/2014 documented in this encounter Results Crossmatch red cells (12/02/2014 10:40 AM SACK KEEPER) [facility] Method Time Signature Crossmatch COMPATIBLE 12/02/2014 BLOOD BANK 10:40 AM SACK KEEPER Unit ABO/RH O Pos 12/02/2014 BLOOD BANK 10:40 AM SACK KEEPER Unit Number [id number] 12/02/2014 BLOOD BANK 10:40 AM SACK KEEPER Status Released 12/02/2014 BLOOD BANK 10:40 AM SACK KEEPER Component Red Blood 12/02/2014 BLOOD BANK Cells 10:40 AM SACK KEEPER Product Code [id number] 12/02/2014 BLOOD BANK 10:40 AM SACK KEEPER Specimen (Source) Anatomical Location Collection Method / Collectio n Time Received Time / Laterality Volume Hang Mcclure MD LAB - BLOOD BANK PRODUCT ORD ER Performing Organization Address [facility] Phon e Number [facility] BLOOD BANK [address] [place] [address] BLOOD [address]ANK [address] [place] [address] [place] [address] Crossmatch red cells (12/02/2014 10:40 AM SACK KEEPER) [facility] gist Method Time Signature Crossmatch COMPATIBLE 12/02/2014 BLOOD BANK 10:40 AM SACK KEEPER Unit ABO/RH O Pos 12/02/2014 BLOOD BANK 10:40 AM SACK KEEPER Unit Number [id number] 12/02/2014 BLOOD BANK 10:40 AM SACK KEEPER Status Released 12/02/2014 BLOOD BANK 10:40 AM SACK KEEPER Component Red Blood 12/02/2014 BLOOD BANK Cells 10:40 AM SACK KEEPER Product Code [id number] 12/02/2014 BLOOD BANK 10:40 AM SACK KEEPER Specimen (Source) Anatomical Location Collection Method / Collectio n Time Received Time / Laterality Volume Hang Mcclure MD LAB - BLOOD BANK PRODUCT ORD ER Performing Organization Address [facility] Phon e Number [facility] BLOOD BANK [address] [place] [address] BLOOD [address] [place] [address] [place] [address] XR Lumbar Spine Port 2/3 Views (11/29/2014 1:38 PM SACK KEEPER) Anatomical Region Laterality Modality Spine Other Specimen (Source) Anatomical Location Collection Method / Collectio n Time Received Time / Laterality Volume Narrative 11/29/2014 1:51 PM SACK KEEPER XR LUMBAR SPINE 2 OR 3 VWS [...] Fluoro G/T 5 Min (11/29/2014 1:37 PM SACK KEEPER) Anatomical Region Laterality Modality Abdomen/Pelvis Other Specimen (Source) Anatomical Location Collection Method / Collectio n Time Received Time / Laterality Volume Narrative 11/29/2014 1:37 PM SACK KEEPER Please see the Radiology Report for result for body part of interest. Procedure Note David Girard - 03/23/2021Formatt ing of this note might be different from the original. Please see the Radiology Report for resu lt for body part of interest. Hang Mcclure MD IMG DIAGNOSTIC IMAGING ORDER [place] Antibody identification (11/29/2014 10:17 AM SACK KEEPER) Patholo gist Method Time Signature Antibody > 3hr for 11/29/2014 BLOOD BANK Identification more 1:34 PM SACK KEEPER blood;Ant i-[place] Specimen Anatomical Collection Method / Collection Time Recei fany Time (Source) Location / Volume Laterality Blood specimen Venipuncture / 11/29/2014 10:17 015 1:34 (specimen) Unknown AM SACK KEEPER PM SACK KEEPER Hang Mcclure MD LAB - BLOOD BANK TEST ORDER Performing Organization Address City/State/ZIP Code Phon e Number [facility] BLOOD BANK [address] [place] [address] BLOOD BANK [address] [place] [address] Red Cell Antigen Typing Non ABO: (11/29/2014 10:17 AM SACK KEEPER) P athologist Signature K Antigen Type Negative 11/29/2014 BLOOD BANK 1:16 PM SACK KEEPER Specimen Anatomical Collection Method / Collection Time Recei fany Time (Source) Location / Volume Laterality Blood specimen Venipuncture / 11/29/2014 10:17 015 1:16 (specimen) Unknown AM SACK KEEPER PM SACK KEEPER Narrative [facility] BLOOD BANK - 11/29/2014 1:16 PM SACK KEEPER K Antigen Hang Mcclure MD LAB - BLOOD BANK TEST ORDER Performing Organization Address City/State/ZIP Code Phon e Number [facility] BLOOD BANK [address] [place] [address] BLOOD BANK [address] [place] [address] EKG CARDIAC - HIM SCAN (11/29/2014) Specimen [...] aureus documented in this encounter Care Teams Bootmaker Hand Relationship Specialty Start Date End Date Primary Dipak Kasper MD PCP - General 09/21/1204/18 documented as of this encounter
--- OUTSIDE RECORDS SUMMARY | 2022-07-03 14:28 | XMS_ITS | Encounter Summary ---
:1940 Author Organization [place] Address [address] [place] [address] Care Team Providers Name Role Phone Primary Dr, Unknown MD Primary Care Provider Unavailable Reason for Visit Auth/Cert - Closed Specialty Diagnoses / Procedures Referred By Contact Refer red To Contact Surgery Diagnoses painful internal fixation left foot Rh Periop Services Procedures REMOVE HARDWARE FOOT [address] [place], [place] [address] Fax: Referral ID Status Reason Start Date Expiration Date Visits Requ ested Visits Authorized [id number] Closed 1 1 Encounter Details Date Type Department Care Team Description 09/30/2012 Hospital Encounter [facility] Alvin Trujillo following Andres Castellanos DPM surgery of the PreOP/PostOP [address] [place] [facility], [address] [facility] E NEC (Primary Dx) [facility] [address] [place] [address] [phone] Social History Tobacco Use Types Packs/Day Years [...] Comments Blood Pressure 130/79 09/30/2012 2:45 PM SOFTWARE PROJECT ENGINEER Pulse - - Temperature 36.2 ??C (97.2 ??F) 09/30/2012 2:45 PM SOFTWARE PROJECT ENGINEER Respiratory Rate 16 09/30/2012 2:45 PM SOFTWARE PROJECT ENGINEER Oxygen Saturation 98% 09/30/2012 2:45 PM SOFTWARE PROJECT ENGINEER Inhaled Oxygen Concentration - - Weight 93 kg (205 lb) 09/30/2012 10:24 AM SOFTWARE PROJECT ENGINEER Height 170.2 cm (5' 7) 09/30/2012 10:24 AM SOFTWARE PROJECT ENGINEER Body Mass Index 32.11 09/30/2012 10:24 AM SOFTWARE PROJECT ENGINEER documented in this encounter Discharge Instructions [...] DR. SAL TRUJILLO M.D. CLINIC PHONE NUMBER: [phone]. WARE PROJECT ENGINEER documented in this encounter Medications at [...] Trujillo DPM - 09/23/2012 4:09 PM CST WARE PROJECT ENGINEER documented in this encounter Nursing Notes Iwona Ruiz RN - 09/30/2012 12:33 PM CST First Panel started at 1210 and ended at 1230. Second panel started at 1230 and ended at 1237. Jen Ruiz RN WARE PROJECT ENGINEER Iwona Ruiz RN - 09/30/2012 12:22 PM CST Patient did not want his hardware that was removed from procedure on 09/30/[address] Trujillo. Jen Ruiz RN WARE PROJECT ENGINEER documented in this encounter OR Notes OR Anesthesia - Sal Trujillo DPM - 10/01/2012 9:43 AM CST WARE PROJECT ENGINEER documented in this encounter Miscellaneous Notes [...] DPM MT: [id number] Name: ELDA HENDRICKS Account: [id number] : 1940 Procedure Date: 09/30/2012 Document: [id number] cc: Ramiro Walker MD WARE PROJECT ENGINEER Brief Op Note - Sal Trujillo DPM - 09/30/2012 1:[address] [facility] Podiatry/Foot and Ankle Surgery Brief Operative Note Pre-operative diagnosis: Painful Internal Fixation left foot Painful recurrence of toenail right great toe Post-operative diagnosis same Procedure: Procedure(s): Hardware Removal left foot - Deep Surgical matrixectomy right great toe Surgeon: SAL TRUJILLO DPM Assistants(s): Anesthesia: MAC Estimated blood loss: 5 cc WARE PROJECT ENGINEER documented in this encounter Plan of Treatment Not on filedocumented as of this encounter Procedures Procedure Name Priority Date/Time Associated Diagnosis Comme nts XR FOOT PORT LEFT 3 Routine 09/30/2012 1:44 PM Re sults for this VIEWS SOFTWARE PROJECT ENGINEER procedure are i n the results section. EXCISION, TOENAIL 09/30/2012 11:41 AM painful internal SOFTWARE PROJECT ENGINEER fixation left foot Special Needs 5# Hx MRSA REMOVAL, HARDWARE, FOOT 09/30/2012 11:41 AM SOFTWARE PROJECT ENGINEER painfu l internal fixation left foot Special Needs # Hx MRSA EKG 12-LEAD, TRACING ONLY Routine 09/30/2012 11:38 AM SOFTWARE PROJECT ENGINEER Results for this procedure are in the resu lts section. HIM ECG SCAN Routine 09/30/2012 documented in this encounter Results X-ray LEFT Foot 3 vw port (09/30/2012 1:44 PM SOFTWARE PROJECT ENGINEER) Anatomical Region Laterality Modality Left Foot Left Other Specimen (Source) Anatomical Collection Method Collection Time Re ceived Time Location / / Volume Laterality 09/30/2012 1:44 PM SOFTWARE PROJECT ENGINEER Impressions 10/01/2012 10:47 AM SOFTWARE PROJECT ENGINEER IMPRESSION: Postoperative and degenerative change. No acute abnormality. ODILON RANDOLPH MD Narrative 10/01/2012 10:47 AM SOFTWARE PROJECT ENGINEER LEFT FOOT THREE OR MORE VIEWS [...] EKG 12-lead, tracing only (09/30/2012 11:38 AM SOFTWARE PROJECT ENGINEER) Component Value Ref Range Test Analysis Performed Pathologis t Method Time At Signature Ventricular Rate 64 BPM RADIOLOGY RESULTS Atrial Rate 64 BPM RADIOLOGY RESULTS LA Interval 154 ms RADIOLOGY RESULTS QRS Duration 80 ms RADIOLOGY RESULTS QT 410 ms RADIOLOGY RESULTS QTc 422 ms RADIOLOGY RESULTS P [place] -1 degrees RADIOLOGY RESULTS R AXIS -9 degrees RADIOLOGY RESULTS T [place] -7 degrees RADIOLOGY RESULTS Interpretation Sinus rhythm [...] / / Volume Laterality 09/30/2012 11:38 AM SOFTWARE PROJECT ENGINEER Doctor Unknown MD ECG ORDERABLES Performing Organization Address City/State/ZIP Code Phon e Number RADIOLOGY RESULTS ECG - HIM ECG Scan (09/30/2012) Narrative This result has an attachment that is no t available. Sal Trujillo DPJami ECG ORDERABLES documented in this encounter Visit Diagnoses Diagnosis Aftercare following surgery of the [facility], NEC - Primary documented in this encounter Administered Medications Inactive Administered Medications - up to 3 most recent administrations Medication Order MAR Action Action Date Dose Rate Site fentaNYL (SUBLIMAZE) injection Given 09/30/2012 2:16 PM SOFTWARE PROJECT ENGINEER 50 m cg 25-50 mcg 25-50 mcg, Intravenous, EVERY 2 MIN PRN, other, acute pain, Starting on Yesenia 09/30/12 at 1251, MAX cumulative dose = 250 mcg. Use Fentanyl initially, as a short acting agent for acute pain control. If insufficient, or a longer acting agent is needed, begin Morphine or Hydromorphone if ordered., PACU Given 09/30/2012 1:33 PM SOFTWARE PROJECT ENGINEER 50 mcg HYDROcodone-acetaminophen 5-325 MG per Given 09/30/2012 2:16 PM SOFTWARE PROJECT ENGINEER 1 tablet tablet 1-2 tablet 1-2 tablet, Oral, ONCE, On Yesenia 09/30/12 at 1330, For 1 dose, One time prior to discharge., Post-procedure lactated ringers infusion New Bag 09/30/2012 1:33 PM SOFTWARE PROJECT ENGINEER 1,000 mLs 100 mL/hr at 100 mL/hr, Intravenous, CONTINUOUS, Continue until IV catheter is weaned, PACU, Starting on Yesenia 09/30/12 at 1300, Until Yesenia 09/30/12 at 1723 documented in this encounter Active and Recently Administered Medications Times are shown in SOFTWARE PROJECT ENGINEER. Scheduled Medication Order 09/28/2012 09/29/2012 09/30/2012 HYDROcodone-acetaminophen 5-325 MG per tablet 1-2 tablet (COMPLE KENAN) 1416 (Given - Provider: Nai Galarza, RN) 1-2 tablet, Oral, ONCE, On Yesenia 09/30/12 at 1330, For 1 dose, One time prior to discharge., Post-procedure Continuous Medication Order 09/28/2012 09/29/2012 09/30/2012 lactated ringers infusion (CANCELED) 1333 (New Bag - Provider: Nai Galarza, JOSE) at 100 mL/hr, Intravenous, CONTINUOUS, C ontinue until IV catheter is weaned, PACU, Starting on Yesenia 09/30/12 at 1300, Until Yesenia 09/30/12 at 1723 PRN Medication Order 09/28/2012 09/29/2012 09/30/2012 bupivacaine (MARCAINE) injection 0.5% (PF) (CANCELED) 1238 (Given - Provider: Sal Trujillo DPM - Comment: 7.5mL of 1% Lidocaine mixed with 7.5mL of 0.5% BUPivicaine was injected for a total of 10mL prior to incision of Left foot.) PRN, Starting on Yesenia 09/30/12 at 1238, Intra-procedure clindamycin (CLEOCIN) IVPB 900 mg (CANCELED) 1152 (Given - Provider: Lety Guzman APRN POTABLE WATER TREATMENT OPERATOR) Routine, 900 mg, Intravenous, EVERY 6 HO URS PRN, Starting on Yesenia 09/30/12 at 1034, Intra-Op Dose. Give every 6 hours while patient in surgery, starting 6 hours after pre-op dose. DO NOT GIVE intra-op do se if CrCl < 10 mL/min (on dialysis). If CrCL < 50 mL/min, double the time interval between doses., Pre-procedure fentaNYL (SUBLIMAZE) injection 25-50 mcg (CANCELED) 1333 (Given - Provider: Nai Galarza, JOSE)1416 (Given - Provider: Nai Galarza, JOSE) 25-50 mcg, Intravenous, EVERY 2 MIN PRN, other, acute pain, Starting on Yesenia 09/30/12 at 1251, MAX cumulative dose = 250 mcg. Use Fentanyl initially, as a short acting agent for acute pain control. If in sufficient, or a longer acting agent is needed, begin Morphine or Hydromorphone if ordered., PACU lidocaine (PF) (XYLOCAINE) 1 % injection (CANCELED) 1238 (Canceled Entry - Provider: Sal Trujillo DPM)1240 (Given - Provider: Sal Trujillo DPM - Comment: Into Right great toe) PRN, Starting on Yesenia 09/30/12 at 1238, Intra-procedure sodium chloride 0.9% (bottle) irrigation (CANCELED) 1241 (Given - Provider: Sal Trujillo DPM) PRN, Starting on Yes[place] 09/30/12 at 1241, A wander to irrigate and instructions: ., Intra-procedure documented in this encounter Care Teams Lawn Mower Sharpener Relationship Specialty Start Date End Date Primary Dipak Kasper, PCP - General 09/21/1204/18 documented as of this encounter
--- OUTSIDE RECORDS SUMMARY | 2022-07-03 14:28 | XMS_ITS | Encounter Summary ---
:1940 Author Organization [place] Address [address] [place] [address] Care Team Providers Name Role Phone Primary DrDipak MD Primary Care Provider Unavailable Celina Coley Primary Care Provider [facility] Primary Care Provider [phone] Jon White MD Unavailable [phone] Ramiro Loco MD Unavailable Gallito Gonzalez MD Unavailable Encounter Details Date Type Department Care Team Description 05/02/2014 Records - [facility] Cheryl Enriquez RN [address] [address] Social History Tobacco Use Types [...] weeks for routine followup. Isra Fregoso M.D. [facility] Mattie Urrutia - 05/04/2014 3:42 PM [...] - 05/07/2014 12:18 PM CDT Confirmed with [facility] acceptance of pt for PT and OT. Notified pt of [facility] PT and OT acceptance and informed pt and daughter agency will be contacting pt on Thursday, 05/08, to schedule appointment. MARIELA Dillon, [facility] Clinical Social Work Bus Attendant Luciano León - 05/07/2014 11:25 AM CDT [facility] Daily Progress Note Assessment/Plan: 1. Hypertension. [...] resolved, no tenderness or swelling. Isra Fregoso [facility] Date: 05/07/2014 Time: 10:42 AM Historical Provider - 05/06/2014 1:16 PM CDT [facility] met with pt re home health care services. Pt requested [facility] for PT and OT. [facility] contacted [facility] at [phone] making referral to this agency. Fax no is [phone]. [facility] will follow pt to discharge. Rita Urbina, MOVIE STUNT PERFORMER, [facility] Clinical Social Work Care Managedr Low Ramirez - 05/06/2014 12:12 PM CDT WILDLIFE MANAGEMENT PROFESSOR TREATMENT NOTE Name: Speedy Hendricks : 1940 Acupuncture Treatment Patient Type: Orthopedic Intervention Reason: Pain Pre-session Pain ratin Post-session Pain ratin Patient complaint:: (R) foot pain Acupunture (Points):: Du 20, Yin watts, (R) Gb 20, (R) St 34, 36, (R) Sp 8, (R) Si 4 Low Ramirez L.Ac. Date: 05/06/2014 Time: 12:12 PM Luciano León - 05/06/2014 11:44 AM CDT [facility] Daily Progress Note Assessment/Plan: 1. Hypertension. [...] to weight bear, equivocal SLR. Isra Fregoso [facility] Date: 05/06/2014 Time: 11:15 AM Lexie [...] Thank you for the consult. Eri Bah [facility] 05/05/2014 4:46 PM Ca Plunkett - 05/05/2014 3:50 PM CDT WILDLIFE MANAGEMENT PROFESSOR TREATMENT NOTE Name: Speedy Hendricks : 1940 [...] León S - 05/04/2014 2:20 PM CDT [facility] Daily Progress Note Assessment/Plan: 1. Hypertension. [...] Care Management should needs arise. Cedric Borrego, MOVIE STUNT PERFORMER, SANITARY INSPECTOR Lety Dickerson RN - 05/04/2014 12:00 PM [...] Luciano León - 05/03/2014 12:31 PM CDT [facility] Daily Progress Note Assessment/Plan: 1. Hypertension. [...] swab prior to antibiotic . Per J. Power/ClFern RN documented in this encounter H&P Notes [...] Revision L4 laminotomy. SURGEON: Dr. Tin Mcclure. ETHYLBENZENE OXIDIZER: Mahesh Rodgers PA-C, who was needed for [...] the preop area of [facility] today, 05/03/2014. The low back was [...] the next 6 weeks. HANG MCCLURE MD [facility] D 05/03/2014 09:21:55 T 05/03/2014 12:31:48 R 05/03/2014 12:31:48 [id number] cc:LUCIANO GUERRA MD documented in this encounter [...] are negative for DVT. Luciano León MD [facility] US ORDERABLES XR Foot Port Right 3 [...] evidence for acute fracture. Luciano León MD [facility] DIAGNOSTIC IMAGING ORDER BRAYDEN XR Ankle Port [...] changes in cervical spine. Misha Weaver MD [facility] DIAGNOSTIC IMAGING ORDER BRAYDEN XR Lumbar Spine [...] level of L4 pedicle. Hang Mcclure MD [facility] DIAGNOSTIC IMAGING ORDER BRAYDEN XR Surgery CHRIS [...] documented as of this encounter Care Teams Superintendent Stevedoring Relationship Specialty Start Date End Date Primary DrDipak MD PCP - General 09/21/1204/18 Celina Coley PCP - General Family Practice 05/05/17 05/11/[address] [address] Kehinde Portillo PCP - General 05/12/[address] [address] Jon White Assigned Surgical Provider 08/10/20 12/08/20 MD [address] [place] [address] Ramiro Loco MD Assigned Heart and 08/10/20 05/11/21 [address] Vascular Provider [place] [address] Gallito Gonzalez, Assigned Heart and 09/29/21 MD Vascular Provider [address] [place] [address] documented as of this encounter
--- OUTSIDE RECORDS SUMMARY | 2022-07-03 14:28 | XMS_ITS | Encounter Summary ---
:1940 Author Organization [place] Address [address] [place] [address] Care Team Providers Name Role Phone Primary DrDipak MD Primary Care Provider Unavailable Celina Coley Primary Care Provider [facility] Primary Care Provider [phone] Jon White MD Unavailable [phone] Ramiro Loco MD Unavailable Encounter Details Date Type Department Care Team Description 05/02/2014 Anesthesia - [facility] Zoltan Arizmendi MD [address] [place] [address] [id number] Social History Tobacco Use Types Packs/Day [...] documented as of this encounter Care Teams Miller Head Wet Process Relationship Specialty Start Date End Date Primary Dipak Kasper MD PCP - General 09/21/1204/18 Celina Coley PCP - General Family Practice 05/05/17 05/11/[address] [address] Kehinde Portillo PCP - General 05/12/[address] [address] Jon White Assigned Surgical Provider 08/10/20 12/08/20 MD Aubrey [address] [place] [address] Ramiro Loco MD Assigned Heart and 08/10/20 05/11/21 [address] [place] [address] Vascular Provider [place] [address] documented as of this encounter
--- OUTSIDE RECORDS SUMMARY | 2022-07-03 14:28 | XMS_ITS | Encounter Summary ---
:1940 Author Organization [place] Address [address] [place] [address]. [place] [address] Care Team Providers Name Role Phone Primary Dr, Unknown MD Primary Care Provider Unavailable Encounter Details Date Type Department Care Team Description 09/30/2012 Anesthesia Event [facility] Viraj Silva PeriOp Letty Tejeda MD [address] [place] [address] ANESTH [place] [address] [place], [place] [address] (Wo rk) Anesthesia Record [...] Type Details Placement Removal Peripheral IV 09/30/12; (OSD CLERK); 20 09/30/12 0000 by 09/30/12 14 45 [...] 97.00%. Additional Comments: Doing Well. Euvolemic. AKollitzMD LRY POLISHER Anesthesia Preprocedure Evaluation - Damian Silva MD [...] benefits and alternatives discussed with: patient or route service representative. Possibility of blood products discussed. History & Physical Review History and physical reviewed; no interval change. . LRY POLISHER documented in this encounter Miscellaneous Notes Anesthesia Care Transfer Note - Lety Guzman APRN CRNA - 09/30/2012 12:47 PM CST Anesthesia Care Transfer Note Patient: Spedey Hendricks Transferred to: Phase II Patient vital signs: stable Airway: none To phase 2. criteria met. LRY POLISHER documented in this encounter Plan of Treatment Not on filedocumented as of this encounter Visit Diagnoses Not on filedocumented in this encounter Administered Medications Inactive Administered Medications - up to 3 most recent administrations Medication Order MAR Action Action Date Dose Rate Site clindamycin (CLEOCIN) IVPB 900 mg Given 09/30/2012 11:52 AM JEWELRY POLISHER 900 mg Routine, 900 mg, Intravenous, EVERY 6 HOURS PRN, Starting on Yesenia 09/30/12 at 1034, Intra-Op Dose. Give every 6 hours while patient in surgery, starting 6 hours after pre-op dose. DO NOT GIVE intra-op dose if CrCl < 10 mL/min (on dialysis). If CrCL < 50 mL/min, double the time interval between doses., Pre-procedure fentaNYL (SUBLIMAZE) injection Given 09/30/2012 12:15 PM JEWELRY POLISHER 50 mcg PRN, moderate to severe pain, Starting on Yesenia 09/30/12 at 1215, Anesthesia Intra-op lactated ringers infusion New Bag 09/30/2012 11:39 AM JEWELRY POLISHER mL Intravenous, CONTINUOUS PRN, Anesthesia Intra-op, Starting on Yesenia 09/30/12 at 1139, Until Yesenia 09/30/12 at 1248 midazolam (VERSED) injection Given 09/30/2012 11:54 AM JEWELRY POLISHER 2 mg PRN, anxiety, Starting on Yesenia 09/30/12 at 1145, Anesthesia Intra-op Given 09/30/2012 11:45 AM JEWELRY POLISHER 2 mg propofol (DIPRIVAN) Rate/Dose 09/30/2012 12:11 20 mcg/kg/min 11.2 mL /hr injection Change PM JEWELRY POLISHER CONTINUOUS PRN, Starting on Yesenia 09/30/12 at 1202, Anesthesia Intra-op Rate/Dose Change 09/30/2012 12:04 PM JEWELRY POLISHER 10 mcg/kg/min 5.6 mL/hr New Bag 09/30/2012 12:02 PM JEWELRY POLISHER 55 mcg/kg/min 30.7 mL/hr documented in this encounter Care Teams Bottom Pounder Cement Shoes Relationship Specialty Start Date End Date Primary Dipak Kasper, PCP - General 09/21/1204/18 documented as of this encounter
--- OUTSIDE RECORDS SUMMARY | 2022-07-03 14:28 | XMS_ITS | Encounter Summary ---
:1940 Author Organization [place] Address [address] [place] [address] Care Team Providers Name Role Phone Primary DrDipak MD Primary Care Provider Unavailable Celina Coley Primary Care Provider [facility] [place] Primary Care Provider [phone] Jon White MD Unavailable [phone] Ramiro Loco MD Unavailable Encounter Details Date Type Department Care Team Description 11/29/2014 Surgery - [facility] Hang Mcclure, [facility] OR [facility] [address] [place] [address] [address] [id number] [place] [address] [phone] (Wo rk) Social History Tobacco Use Types [...] 90.7 kg (200 lb) 11/29/2014 9:33 AM CANDLES POURER Height 180.3 cm (5' 11) 11/29/2014 9:33 AM CANDLES POURER Body Mass Index 27.89 11/29/2014 9:33 AM CANDLES POURER documented in this encounter Plan of Treatment Not on filedocumented as of this encounter Visit Diagnoses Not on filedocumented in this encounter Additional Health Concerns Infection Onset Date Last Indicated Resolved Time MRSAComment: Positive 02/17/11 and 09/22/12 11/05/2018 019 Negatives 05/03/14 (HE), 12/01/14 (HE) documented as of this encounter Care Teams Pattern Lease Inspector Relationship Specialty Start Date End Date Primary Dipak Kasper MD PCP - General 09/21/1204/18 Celina Coley PCP - General Family Practice 05/05/17 05/11/[address] [address] [facility] PCP - General 05/12/[address] [address] Jon White Assigned Surgical Provider 08/10/20 12/08/20 MD [address]rey [address] [place] [address] Ramiro Loco MD Assigned Heart and 08/10/20 05/11/21 [address] [place] [address] Vascular Provider [place] [address] documented as of this encounter
--- OUTSIDE RECORDS SUMMARY | 2022-07-03 14:28 | XMS_ITS | Encounter Summary ---
:1940 Author Organization [place] Address [address] [place] [address] Care Team Providers Name Role Phone Primary Dr, Unknown MD Primary Care Provider Unavailable Reason for Visit Auth/Cert - Closed Specialty Diagnoses / Procedures Referred By Contact Refer red To Contact Surgery Diagnoses painful internal fixation left foot Rh Periop Services Procedures REMOVE HARDWARE FOOT [address] [place], [place] [address] Fax: Referral ID Status Reason Start Date Expiration Date Visits Requ ested Visits Authorized [id number] Closed 1 1 Encounter Details Date Type Department Care Team Description 09/30/2012 Surgery [facility] Daniel Trujillo har dware removel left [place] PeriOp Servic es DPM foot [address] [place] [facility] [address] [address] [place] [address] (Wo rk) Surgery Details Date/Time Status Location OR Service Patient Case Class Case Tr auma Class Type Case? 09/30/12 11:30 Posted OR OR 04 Podiatry Same Day AM Surgery Panel 1 Procedure LRB Anes Op Region Wound Class Commen ts hardware removel left foot Left MAC Foot I-Clean hardware removel left foot EXCISION, TOENAIL Right MAC Toe I-Clean Surgeon Surgeon Role Service Panel Daniel Trujillo, [...] Comments Blood Pressure 137/81 09/30/2012 10:30 AM GOLD LEAF LAYER Pulse - - Temperature 35.9 ??C (96.6 ??F) 09/30/2012 10:24 AM GOLD LEAF LAYER Respiratory Rate 20 09/30/2012 10:24 AM GOLD LEAF LAYER Oxygen Saturation 98% 09/30/2012 10:24 AM GOLD LEAF LAYER Inhaled Oxygen Concentration - - Weight 93 kg (205 lb) 09/30/2012 10:24 AM GOLD LEAF LAYER Height 170.2 cm (5' 7) 09/30/2012 10:24 AM GOLD LEAF LAYER Body Mass Index 32.11 09/30/2012 10:24 AM GOLD LEAF LAYER documented in this encounter Discharge Instructions Discharge [...] DR. DANIEL TRUJILLO M.D. CLINIC PHONE NUMBER: [phone]. LEAF LAYER documented in this encounter Medications at Time [...] Trujillo DPM - 09/23/2012 4:09 PM CST LEAF LAYER documented in this encounter Nursing Notes Iwona Ruiz RN - 09/30/2012 12:33 PM CST First Panel started at 1210 and ended at 1230. Second panel started at 1230 and ended at 1237. Jen Ruiz RN LEAF LAYER Iwona Ruiz RN - 09/30/2012 12:22 PM CST Patient did not want his hardware that was removed from procedure on 09/30/[address] Trujillo. Jen Ruiz RN LEAF LAYER documented in this encounter OR Notes OR Anesthesia - Daniel Trujillo DPM - 10/01/2012 9:43 AM CST LEAF LAYER documented in this encounter Miscellaneous Notes Op [...] DPM MT: EM#[id number] Name: ELDA HENDRICKS Account: [id number] : 1940 Procedure Date: 09/30/2012 Document: [id number] cc: Ramiro Walker MD LEAF LAYER Brief Op Note - Daniel Trujillo DPM - 09/30/2012 1:01 PM CST [facility] Podiatry/Foot and Ankle Surgery Brief Operative Note Pre-operative diagnosis: Painful Internal Fixation left foot Painful recurrence of toenail right great toe Post-operative diagnosis same Procedure: Procedure(s): Hardware Removal left foot - Deep Surgical matrixectomy right great toe Surgeon: DANIEL TRUJILLO DPM Assistants(s): Anesthesia: MAC Estimated blood loss: 5 cc LEAF LAYER documented in this encounter Plan of Treatment Not on filedocumented as of this encounter Procedures Procedure Name Priority Date/Time Associated Diagnosis Comme nts XR FOOT PORT LEFT 3 Routine 09/30/2012 1:44 PM Re sults for this VIEWS GOLD LEAF LAYER procedure are i n the results section. EXCISION, TOENAIL 09/30/2012 11:41 AM painful internal GOLD LEAF LAYER fixation left foot Special Needs # Hx MRSA REMOVAL, HARDWARE, FOOT 09/30/2012 11:41 AM GOLD LEAF LAYER painfu l internal fixation left foot Special Needs # Hx MRSA EKG 12-LEAD, TRACING ONLY Routine 09/30/2012 11:38 AM GOLD LEAF LAYER Results for this procedure are in the resu lts section. HIM ECG SCAN Routine 09/30/2012 documented in this encounter Results X-ray LEFT Foot 3 vw port (09/30/2012 1:44 PM GOLD LEAF LAYER) Anatomical Region Laterality Modality Left Foot Left Other Specimen (Source) Anatomical Collection Method Collection Time Re ceived Time Location / / Volume Laterality 09/30/2012 1:44 PM GOLD LEAF LAYER Impressions 10/01/2012 10:47 AM GOLD LEAF LAYER IMPRESSION: Postoperative and degenerative change. No acute abnormality. ODILON RANDOLPH MD Narrative 10/01/2012 10:47 AM GOLD LEAF LAYER LEFT FOOT THREE OR MORE VIEWS PORTABLE [...] EKG 12-lead, tracing only (09/30/2012 11:38 AM GOLD LEAF LAYER) Component Value Ref Range Test Analysis Performed Pathologis t Method Time At Signature Ventricular Rate 64 BPM RADIOLOGY RESULTS Atrial Rate 64 BPM RADIOLOGY RESULTS [place] Interval 154 ms RADIOLOGY RESULTS QRS Duration 80 ms RADIOLOGY RESULTS QT 410 ms RADIOLOGY RESULTS QTc 422 ms RADIOLOGY RESULTS P [place] -1 degrees RADIOLOGY RESULTS R AXIS -9 degrees RADIOLOGY RESULTS T [place] -7 degrees RADIOLOGY RESULTS Interpretation Sinus rhythm [...] / / Volume Laterality 09/30/2012 11:38 AM GOLD LEAF LAYER Doctor Unknown ECG ORDERABLES Performing Organization Address [...] 15 mLs Operative injection 0.5% (PF) PM GOLD LEAF LAYER Site/Surgical S ite PRN, Starting on Yesenia 09/30/12 at 1238, Intra-procedure fentaNYL (SUBLIMAZE) injection 25-50 mcg Given 09/30/2012 2:16 PM GOLD LEAF LAYER 50 mcg 25-50 mcg, Intravenous, EVERY 2 MIN PRN, other, acute pain, Starting on Yesenia 09/30/12 at 1251, MAX cumulative dose = 250 mcg. Use Fentanyl initially, as a short acting agent for acute pain control. If insufficient, or a longer acting agent is needed, begin Morphine or Hydromorphone if ordered., PACU Given 09/30/2012 1:33 PM GOLD LEAF LAYER 50 mcg HYDROcodone-acetaminophen 5-325 MG per Given 09/30/2012 2:16 PM GOLD LEAF LAYER 1 tablet tablet 1-2 tablet 1-2 tablet, Oral, ONCE, On Yesenia 09/30/12 at 1330, For 1 dose, One time prior to discharge., Post-procedure lactated ringers infusion New Bag 09/30/2012 1:33 PM GOLD LEAF LAYER 1,000 mLs 100 mL/hr at 100 mL/hr, Intravenous, CONTINUOUS, Continue until IV catheter is weaned, PACU, Starting on Yesenia 09/30/12 at 1300, Until Yesenia 09/30/12 at 1723 lidocaine (PF) (XYLOCAINE) Given 09/30/2012 12:40 PM 4 mLs Operative Site/Surgical 1 % injection GOLD LEAF LAYER Site PRN, Starting on Yesenia 09/30/12 at 1238, Intra-procedure sodium chloride 0.9% Given 09/30/2012 12:41 PM 100 mLs Operative Site/Surgical (bottle) irrigation GOLD LEAF LAYER Site PRN, Starting on Yesenia 09/30/12 at 1241, Area to irrigate and instructions: ., Intra-procedure documented in this encounter Active and Recently Administered Medications Times are shown in GOLD LEAF LAYER. Scheduled Medication Order 09/28/2012 09/29/2012 09/30/2012 HYDROcodone-acetaminophen 5-325 MG per tablet 1-2 tablet (COMPLE KENAN) 1416 (Given - Provider: Nai Galarza, JOSE) 1-2 tablet, Oral, ONCE, On Yesenia 09/30/12 [...] 1152 (Given - Provider: Lety Guzman APRN RN STARS) Routine, 900 mg, Intravenous, EVERY 6 HO [...] Nai Galarza, JOSE)1416 (Given - Provider: Nai Galarza RN) 25-50 mcg, Intravenous, EVERY 2 MIN [...] - Provider: Daniel Trujillo DPM) PRN, Starting on Yesenia 09/30/12 at 1241, A wander to irrigate and instructions: ., Intra-procedure documented in this encounter Care Teams Customs Broker Relationship Specialty Start Date End Date Primary Dipak Kasper MD PCP - General 09/21/1204/18 documented as of this encounter
--- OUTSIDE RECORDS SUMMARY | 2022-07-03 14:28 | XMS_ITS | Encounter Summary ---
:1940 Author Organization [place] Address [address] [place] [address] Care Team Providers Name Role Phone Primary Dr, Unknown MD Primary Care Provider Unavailable Reason for Visit Reason Comments Surgical Followup bilateral post op Encounter Details Date Type Department Care Team Description 10/22/2012 Office Visit [facility] Sal Chaparro re following Yariel Castellanos DPJami surgery of the [address] [place] [address] musculoskeletal system, [place] [address] E NEC (Primary Dx) [phone] [address] [place], [place] [address] Social History Tobacco Use Types [...] 93 kg (205 lb) 10/22/2012 9:14 AM REFINERY OPERATOR GAS PLANT Height 170.2 cm (5' 7) 10/22/2012 9:14 AM REFINERY OPERATOR GAS PLANT Body Mass Index 32.11 10/22/2012 9:14 AM REFINERY OPERATOR GAS PLANT documented in this encounter Progress Notes Sal [...] questions or concerns and follow-up in prn. NERY OPERATOR GAS PLANT documented in this encounter Nursing Notes 10/22/2012 9:00 AM CST >> MELL MAGANA Fri Oct 22, 2012 9:14 AM Patient presents with: Surgical Followup - bilateral post op Mell Magana CMA documented in this encounter Plan of Treatment Not on filedocumented as of this encounter Visit Diagnoses Diagnosis Aftercare following surgery of [facility], NEC - Primary documented in this encounter Care Teams Skip Tender Relationship Specialty Start Date End Date Primary Dipak Kasper MD PCP - General 09/21/1204/18 documented as of this encounter
--- OUTSIDE RECORDS SUMMARY | 2022-07-03 14:28 | XMS_ITS | Encounter Summary ---
:1940 Author Organization [place] Address [address] [place] [address] Care Team Providers Name Role Phone Primary Dr, Unknown MD Primary Care Provider Unavailable Reason for Visit Reason Onset Date Comments Appointment 10/30/2016 Encounter Details Date Type Department Care Team Description 10/30/2016 Telephone [facility] Jon White, Appointment [place] MD [address] [place] [phone] [place] [address] (Wo rk) Social History Tobacco [...] before procedure. Pt's daughter will accompany him. PLAY PROGRAMMER Telephone Encounter - Lisa Diaz RN - 10/30/2016 2:33 PM CST Left detailed message for pt' daughter explaining patient can have MOHS done next week in order to save himself an extra trip or they can just come in and have consult 1st. PLAY PROGRAMMER Telephone Encounter - Aruna Rodriguez - 10/30/2016 8:14 AM CST Patient's daughter would like clarification as to whether Mr. Hendricks is having Mohs surgery rather than consult only - as it's scheduled @ 10:45. Please advise Raquel. PLAY PROGRAMMER documented in this encounter Plan of Treatment Not on filedocumented as of this encounter Visit Diagnoses Not on filedocumented in this encounter Care Teams Legal Transcriber Relationship Specialty Start Date End Date Primary Dipak Kasper MD PCP - General 09/21/1204/18 documented as of this encounter
--- OUTSIDE RECORDS SUMMARY | 2022-07-03 14:28 | XMS_ITS | Encounter Summary ---
:1940 Author Organization [place] Address [address] [place] [address] Care Team Providers Name Role Phone Primary Dr, Dipak WELSH Primary Care Provider Unavailable Reason for Visit Reason Comments Derm Problem MOHS Encounter Details Date Type Department Care Team Description 11/06/2016 Office Visit [facility] Jon White Basal cell carcinoma of nose (Primary Dx); [facility] [place] Aubrey [place]; [place] [address] [place] (seborrheic keratosis); [address] [address] [place], [place] [phone] (Work) [phone] Social History Tobacco Use Types Packs/Day Years [...] Comments Blood Pressure 203/105 11/06/2016 10:05 AM LEGAL BILLING COORDINATOR Pulse 64 11/06/2016 10:05 AM LEGAL BILLING COORDINATOR Temperature - - Respiratory Rate - - Oxygen Saturation 96% 11/06/2016 10:05 AM LEGAL BILLING COORDINATOR Inhaled Oxygen Concentration - - Weight - - Height - - Body Mass Index - - documented in this encounter Patient Instructions Patient InstructionsLillian Aj CMA - 11/06/2016 10:52 AM CST Sutured Wound Care [facility]: [phone] [facility]: [phone] ? No strenuous activity for 48 hours. [...] occurs. In case of emergency phone:Dr White [phone] L BILLING COORDINATOR documented in this encounter Progress Notes Jon [...] ??? Ent surgery tonsils ??? Appendectomy ??? [place] teeth[ ??? Remove hardware foot 09/30/2012 Procedure: [...] will return in one week forwound evaluation. L BILLING COORDINATOR documented in this encounter Nursing Notes Farzana Harris CMA - 11/06/2016 10:52 AM CST Surgical Office Location: [facility] Dermatology [address] [place] [address] L BILLING COORDINATOR Llilian Aj CMA - 11/06/2016 10:06 AM CST Initial BP 203/105 mmHg Pulse 64 SpO2 96% Estimated body mass index is 32.10 kg/(m^2) as calculated from the following: Height as of 10/22/12: 1.702 m (5' 7). Weight as of 10/22/12: 92.987 kg (205 lb). . L BILLING COORDINATOR documented in this encounter Plan of Treatment Not on filedocumented as of this encounter Procedures Procedure Name Priority Date/Time Associated Diagnosis Comme nts HC MOHS Routine 11/06/2016 10:51 AM Basal cell carcinoma of HEAD/NCK/HND/FT/GEN LEGAL BILLING COORDINATOR nose 1ST STAGE UP T0 5 BLOCKS HC ADJ TISSUE XFER Routine 11/06/2016 10:51 AM Basal cell carc inoma of LID/NOS/EAR/LIP LEGAL BILLING COORDINATOR nose 10.1-30 CM documented in this encounter Visit Diagnoses Diagnosis Basal cell carcinoma of nose - Primary Basal cell carcinoma of skin of other an d unspecified parts of face L[place] Other dyschromia SK (seborrheic keratosis) Other seborrheic keratosis Ang[place] Hemangioma of unspecified site documented in this encounter Care Teams Office Asst Relationship Specialty Start Date End Date Primary Dipak Kasper MD PCP - General 09/21/1204/18 documented as of this encounter
--- OUTSIDE RECORDS SUMMARY | 2022-07-03 14:28 | XMS_ITS | Encounter Summary ---
:1940 Author Organization [place] Address [address] [place] [address] Care Team Providers Name Role Phone Primary Dr, Dipak WELSH Primary Care Provider Unavailable Celina Coley Primary Care Provider [facility] Primary Care Provider [phone] Jon White MD Unavailable [phone] Ramiro Loco MD Unavailable Gallito Gonzalez [...] as of this encounter Care Teams Production Potter Relationship Specialty Start Date End Date Primary Dr, Dipak, PCP - General 09/21/1204/18 Celina Coley PCP - General Family Practice 05/05/17 05/11/[address] [address] [facility] P[facility] - General 05/12/[address] [address] Jon White Assigned Surgical Provider 08/10/20 12/08/20 MD Aubrey [address] [place] [address] Ramiro Loco MD Assigned Heart and 08/10/20 05/11/21 [address] Vascular Provider [place] [address] Gallito Gonzalez, Assigned Heart and 09/29/21 Vascular Provider [address] [place] [address] documented as of this encounter
--- OUTSIDE RECORDS SUMMARY | 2022-07-03 14:28 | XMS_ITS | Encounter Summary ---
:1940 Author Organization [place] Address [address] [place] [address] Care Team Providers Name Role Phone Unavailable Primary Care Provider Unavailable Encounter Details Date Type Department Care Team Description 08/05/2012 Telephone [facility] Sal Chaparro DPM [address] [phone] [place] [address] [place], [place] [address] (Wo rk) Social History Tobacco [...] outlook. Date/Time: 09/30/2012 @ 12:50 pm Hospital: [facility] Anesthesia: MAC Surgeon: Juana CourtneyPNomanMNoman Preop:Unknown Consent: Hardware removal left foot Surgeon Procedure Time: 30 min Anesthesia: MAC Location: [facility] Pre-Operative Medications: Clindamycin 900 mg IV pre-op Special Instrumentation: Synthes mini locking plate screw roll off driver Electronically signed by Sal Chaparro DPM [...]
--- OUTSIDE RECORDS SUMMARY | 2022-07-03 14:28 | XMS_ITS | Encounter Summary ---
:1940 Author Organization [place] Address [address] [place] [address] Care Team Providers Name Role Phone Primary Dr, Unknown MD Primary Care Provider Unavailable Reason for Visit Reason Comments Surgical Followup bilat infections Encounter Details Date Type Department Care Team Description 10/05/2012 Office Visit [facility] Sal Chaparro [facility] are following [facility] [place] F, DPM surgery of the [address] [place] [address] musculoskeletal system, [place], [place] E NEC (Primary Dx) [phone] [place] [address] [place], [place] [address] Social History Tobacco Use Types [...] Comments Blood Pressure 136/80 10/05/2012 12:04 PM SAT MATH TUTOR Pulse 60 10/05/2012 12:04 PM SAT MATH TUTOR Temperature 36.8 ??C (98.2 ??F) 10/05/2012 12:04 PM SAT MATH TUTOR Respiratory Rate - - Oxygen Saturation - - Inhaled Oxygen Concentration - - Weight 93 kg (205 lb) 10/05/2012 12:04 PM SAT MATH TUTOR Height 170.2 cm (5' 7) 10/05/2012 12:04 PM SAT MATH TUTOR Body Mass Index 32.11 10/05/2012 12:04 PM SAT MATH TUTOR documented in this encounter Progress Notes Sal [...] or concerns and follow-up in 1-2 wks. MATH TUTOR documented in this encounter Plan of Treatment Not on filedocumented as of this encounter Procedures Procedure Name Priority Date/Time Associated Diagnosis Comme nts CBC WITH PLATELETS & Routine 10/05/2012 12:21 Aftercare follow ing Results for this DIFFERENTIAL PM SAT MATH TUTOR surgery of the procedure are in musculoskeletal system, the results NEC section. URIC ACID Routine 10/05/2012 12:21 Aftercare following Resu lts for this PM SAT MATH TUTOR surgery of the procedure are in musculoskeletal system, the results NEC section. BASIC METABOLIC Routine 10/05/2012 12:21 Aftercare following R esults for this PANEL PM SAT MATH TUTOR surgery of the procedure are in musculoskeletal system, the results NEC section. WOUND CULTURE Routine 10/05/2012 12:20 Aftercare following Res ults for this AEROBIC BACTERIAL PM SAT MATH TUTOR surgery of the procedur e are in musculoskeletal system, the results NEC section. documented in this encounter Results (ABNORMAL) Basic metabolic panel (Ca, Cl, CO2, Creat, Gluc, K, Na, BUN) (10/05/2012 12:21 PM SAT MATH TUTOR) Analysis Performed At [facility] logist Time Signature Sodium 140 133 - 144 [place] mmol/L [facility] Potassium 4.8 3.4 - 5.3 [place] mmol/L [facility] Chloride 103 94 - 109 [facility] mmol/L [facility] Carbon Dioxide 25 20 - 32 [facility] mmol/L [facility] Anion Gap 12 6 - 17 [place] mmol/L [facility] Glucose 108 (H) 60 - 99 [place] mg/dL [facility] Urea Nitrogen 23 7 - 30 [place] mg/dL [facility] Creatinine 1.41 (H) 0.66 - [facility] 1.25 mg/dL [facility] GFR Estimate 50 (L) >60 [place] mL/min/1.7 [facility] m2 LAB GFR Estimate If 60 (L) >60 [place] Black mL/min/1.7 [facility] m2 LAB Calcium 9.5 8.5 - 10.4 [place] mg/dL [facility] Specimen Anatomical Collection Method Collection Time Receive d Time (Source) Location / / Volume Laterality Blood specimen 10/05/2012 12:21 2 (specimen) PM SAT MATH TUTOR 12:22 PM SAT MATH TUTOR Sal Chaparro DPM LAB - BLOOD ORDERABLES Performing Organization Address City/State/ZIP Code Phon e Number [facility] [address] [place] [address] [facility] (ABNORMAL) CBC with platelets and differential (10/05/2012 12:21 PM SAT MATH TUTOR) [facility] gist Method Time Signature WBC 7.8 4.0 - [facility] 11.0 [facility] 10e9/L CLINIC LAB RBC Count 4.45 4.4 - 5.9 [place] 10e12/L [facility] Hemoglobin 14.6 13.3 - [facility] 17.7 g/dL [facility] Hematocrit 43.2 40.0 - [facility] 53.0 % [facility] MCV 97 78 - 100 [facility] MCH 32.8 26.5 - [place] 33.0 pg [facility] MCHC 33.8 31.5 - [place] 36.5 g/dL [facility] RDW 12.9 10.0 - [place] 15.0 % [facility] Platelet Count 152 150 - 450 [place] 10e9/L [facility] Diff Method Automated [place] Method [facility] % Neutrophils 62.1 40 - 75 % [facility] % Lymphocytes 18.9 (L) 20 - 48 % [facility] % Monocytes 13.4 (H) 0 - 12 % [facility] % Eosinophils 5.2 0 - 6 % [facility] % Basophils 0.4 0 - 2 % [facility] Absolute 4.9 1.6 - 8.3 [place] Neutrophil 10e9/L [facility] Absolute 1.5 0.8 - 5.3 [place] Lymphocytes 10e9/L [facility] Absolute 1.1 0.0 - 1.3 [place] Monocytes 10e9/L [facility] Absolute 0.4 0.0 - 0.7 [place] Eosinophils 10e9/L [facility] Absolute 0.0 0.0 - 0.2 [place] Basophils 10e9/L [facility] Specimen Anatomical Collection Method Collection Time Receive d Time (Source) Location / / Volume Laterality Blood specimen 10/05/2012 12:21 2 (specimen) PM SAT MATH TUTOR 12:22 PM SAT MATH TUTOR Sal Chaparro DPM LAB - BLOOD ORDERABLES Performing Organization Address City/State/ZIP Code Phon e Number [facility] [address] [place] [address] [facility] Uric acid (10/05/2012 12:21 PM SAT MATH TUTOR) P athologist Signature Uric Acid 7.1 3.5 - 8.5 [place] mg/dL CLINIC LAB Specimen Anatomical Collection Method Collection Time Receive d Time (Source) Location / / Volume Laterality Blood specimen 10/05/2012 12:21 2 (specimen) PM SAT MATH TUTOR 12:22 PM SAT MATH TUTOR Sal Chaparro DPJami LAB - BLOOD ORDERABLES Performing Organization Address City/State/ZIP Code Phon e Number [facility] [address] [place] [address] [facility] Wound culture (10/05/2012 12:20 PM SAT MATH TUTOR) [facility] Method Time Signature Specimen Other [facility] [place] Culture Micro No growth [facility] MICROBIOLOGY Micro Report FINAL [facility] Status 10/07/2012 MICROBIOLOGY Specimen Anatomical Collection Method Collection Time Receive d Time (Source) Location / / Volume Laterality Specimen from 10/05/2012 12:20 10/05/2012 wound (specimen) PM SAT MATH TUTOR 12:41 PM CS T Sal Chaparro DPM LAB - MICRO GENERAL ORDERABL ES Performing Organization Address City/State/ZIP Code Phon e Number [facility] [address] [place] [address] [facility] MICROBIOLOGY documented in this encounter Visit Diagnoses Diagnosis Aftercare following [facility] los[facility], NEC - Primary documented in this encounter Care Teams Salesperson Used Cars Relationship Specialty Start Date End Date Primary Dipak Kasper MD PCP - General 09/21/1204/18 documented as of this encounter
--- OUTSIDE RECORDS SUMMARY | 2022-07-03 14:28 | XMS_ITS | Encounter Summary ---
:1940 Author Organization [place] Address [address] [place] [address] Care Team Providers Name Role Phone Primary Dr, Unknown MD Primary Care Provider Unavailable Reason for Visit Reason Onset Date Comments Call To Schedule Appointment 10/08/2012 Encounter Details Date Type Department Care Team Description 10/08/2012 Telephone [facility] Sal Engel, Call To Schedule [address] [employer] [place] [phone] 1021 [facility] [phone] [facility] [address] [place], [place] [address] (Wo rk) Social History Tobacco Use Types [...] Is scheduled for 10/22/12. Marianne Kim RN IT CHECKER Telephone Encounter - Sal Chaparro DPM - 10/08/2012 10:28 AM CREDIT CHECKER Marianne, Would recommend F/U appt either Dr. Nesbitt or myself in 2-3 wks. IT CHECKER Telephone Encounter - Brittany Phan - 10/08/2012 10:08 AM CST Pt no showed appt today and you are off next week do you want him to f/u with another provider or see you the following week? IT CHECKER Telephone Encounter - Nelida Davalos - 10/08/2012 7:53 AM CST Patient was told to schedule an appointment two weeks after operation which would be on ThursdayOctober 22. Dr. Chaparro stated he would like to see patient exactly two weeks after operation and to fit him into the schedule. Please contact patient to schedule appointment. Thank you, Nelida Lopez Central Scheduling IT CHECKER documented in this encounter Plan of Treatment Not on filedocumented as of this encounter Visit Diagnoses Not on filedocumented in this encounter Care Teams Irrigation Equipment Installer Relationship Specialty Start Date End Date Primary Dipak Kasper MD PCP - General 09/21/1204/18 documented as of this encounter
--- OUTSIDE RECORDS SUMMARY | 2022-07-03 14:28 | XMS_ITS | Encounter Summary ---
:1940 Author Organization [place] Address [address] [place] [address] Care Team Providers Name Role Phone Primary Dr, Unknown MD Primary Care Provider Unavailable Reason for Visit Reason Comments Dressing Change Encounter Details Date Type Department Care Team Description 11/18/2016 Allied Health/Nurse [facility] Clinic Dressing Change Visit [place] [phone] Social History Tobacco Use Types Packs/Day [...] healed. IN CASE OF EMERGENCY: Dr White [phone] If you were seen in [place] call: [phone] If you were seen in [place] call: [phone] PING PROCESSOR documented in this encounter Progress Notes Lillian [...] needed. Patient verbalized understanding. .Marva Aj CMA PING PROCESSOR documented in this encounter Plan of Treatment Not on filedocumented as of this encounter Visit Diagnoses Diagnosis Encounter for change or removal of surgi hannah wound dressing - Primary documented in this encounter Care Teams Shot Hole Shooter Relationship Specialty Start Date End Date Primary Dipak Kasper, PCP - General 09/21/1204/18 documented as of this encounter
--- OUTSIDE RECORDS SUMMARY | 2022-07-03 14:28 | XMS_ITS | Encounter Summary ---
:1940 Author Organization [place] Address [address] [place] [address] Care Team Providers Name Role Phone Primary DrDipak MD Primary Care Provider Unavailable Celina Coley Primary Care Provider [facility] Primary Care Provider [phone] Jon White MD Unavailable [phone] Ramiro Loco MD Unavailable Encounter Details Date Type Department Care Team Description 11/29/2014 [facility] [place] [address] [place] [phone] [place], [place] [phone] [address] Social History Tobacco Use Types Packs/Day Years [...] Hydration: adequate Anesthetic complications: no Additional Notes: T TAPER Anesthesia Preprocedure Evaluation - Néstor Stack - 11/29/2014 10:00 AM CST Anesthesia Evaluation Patient summary reviewed No history of anesthetic complications Airway Mallampati: II Neck ROM: full Pulmonary - negative ROS and normal exam Cardiovascular (+) hypertension well controlled, (-) past [place], CAD, CABG/stent, dysrhythmias ECG reviewed Rhythm: regular Rate: normal Neuro/Psych - negative ROS Endo/Other (+) diabetes mellitus type 2 well controlled, obesity, GI/Hepatic/Renal - negative ROS Dental - normal exam Anesthesia Plan Planned anesthetic: general endotracheal Decadron (8 mg), Zofran. ASA 2 Induction: intravenous Anesthetic plan and risks discussed with: patient Post-op plan: routine recovery T TAPER documented in this encounter Miscellaneous Notes Anesthesia [...] as of this encounter Care Teams Final Touch Up Painter Relationship Specialty Start Date End Date Primary Dipak Kasper MD PCP - General 09/21/1204/18 Celina Coley PCP - General Family Practice 05/05/17 05/11/[address] [address] [facility] PCP - General 05/12/[address] [id number] Jon White Assigned Surgical Provider 08/10/20 12/08/20 MD Aubrey [address] [place], [place] [id number] Ramiro Loco MD Assigned Heart and 08/10/20 05/11/21 [address] Vascular Provider [place] [address] documented as of this encounter
--- OUTSIDE RECORDS SUMMARY | 2022-07-03 14:28 | XMS_ITS | Encounter Summary ---
:1940 Author Organization [place] Address [address] [place] [address] Care Team Providers Name Role Phone Primary Dr, Unknown MD Primary Care Provider Unavailable Reason for Visit Reason Comments Back Pain Leg Pain Encounter Details Date Type Department Care Team Description [facility] [address] [place] [address] Acute low back pain 04/30/2017 Encounter [facility] Dilshad John MD [address] [place] [address] due to trauma [address] Provider, Historical [address] [place] [phone] Social History Tobacco Use Types Packs/Day Years [...] John MD - 04/30/2017 2:09 PM CDT [facility] MEDICINE DISCHARGE SUMMARY Primary Care Physician: Kannan [...] COURSE: Nondisplaced insufficiency type sacral fractures - [facility] consult, patient of Dr Mcclure and his injury was described to him -no surgery inidcated - IV dilaudid. He also does ok with oral oxycodone and [place] - taper off IV opioids and optimize [...] MULTIVITAMIN Tab Dose: 1 tablet Generic drug: multivitamin,zq-ealz-glkdyssl 1 tablet, Oral, DAILY desonide 0.05 % [...] in 2-3 weeks or as needed at [facility]. Call our scheduling line at [phone] to make an appointment if you do [...] Comments Follow-up in: Within [facility] follow-up [facility] Follow-up appointment with Primary [...] EMR for more detailed significant labs, imaging, customer consultant notes etc. Total time spent on [...] Ca Plunkett - 04/30/2017 12:19 PM CDT COMPUTATOR TREATMENT NOTE Name: Speedy Hendricks : 1940 [...] much better. Daughter will transport. TANJA Rodríguez FARM OPERATIONS MANAGER 04/30/2017 Rae Campo PA-C - 04/29/2017 4:26 [...] Plans: Nondisplaced insufficiency type sacral fractures - [facility] consult, patient of Dr Mcclure and his injury was described to him -no surgery inidcated - IV dilaudid. He also does ok with oral oxycodone and [place] - taper off IV opioids and optimize [...] Lumbar Spine Without Contrast Result Date: 04/29/2017 [facility] MR LUMBAR SPINE WO CONTRAST 04/28/2017 2:12 [...] right neural foraminal stenosis. Dilshad John MD [facility] Hospitalist Jeanette Santana, [facility] - 04/28/2017 8:59 AM CDT Pharmacy Note - Admission Medication History Pertinent Provider Information: n/a Prior To Admission (ECHO VASC TECH) med list completed and updated in EMR. ECHO VASC TECH Med List Medication Sig Note Last Dose [...] day. 04/27/2017 at just started 04/27 ??? multivitamin,ck-ucqv-llqlfxfx (COMPLETE MULTIVITAMIN) Tab Take 1 tablet by mouth daily. Past Week at Unknown time ??? pramipexole (MIRAPEX) 0.5 MG tablet Take 0.5 mg by mouth at bedtime. 04/26/2017 ??? terazosin (HYTRIN) 5 MG capsule Take 5 mg by mouth at bedtime. 04/26/2017 ??? [DISCONTINUED] acetaminophen (TYLENOL ARTHRITIS PAIN) 650 MG CR tablet Take by mouth. 04/28/2017:[facility] Received Sig: Takes 1 tablet as needed. ??? [DISCONTINUED] atorvastatin (LIPITOR) 40 MG tablet Take 40 mg by mouth. 04/28/2017: Received from: [facility] Received Sig: Take 1 tablet by mouth once daily. ??? [DISCONTINUED] desonide (DESOWEN) 0.05 % lotion Apply topically. 04/28/2017: Received from: [facility] Received Sig: Apply topically to affected area(s) 2 timesdaily. ??? [DISCONTINUED] diclofenac (VOLTAREN) 75 MG EC tablet Take 75 mg by mouth. 04/28/2017: Received from: [facility] Received Sig: Take 1 tablet by mouth 2 times daily with meals. ??? [DISCONTINUED] diflorasone (PSORCON) 0.05 % ointment Apply topically. 04/28/2017: Received from: [facility] Received Sig: Apply topically to affected area(s) once daily. ??? [DISCONTINUED] gabapentin (NEURONTIN) 300 MG capsule Start 1 pill QHS, increase up to TID prn 04/28/2017: Received from: [facility] ??? [DISCONTINUED] HYDROcodone-acetaminophen (NORCO) 7.5-325 mg per tablet Take 1 tablet by mouth. 04/28/2017: Received from: [facility] Received Sig: Take 1 tabletby mouth every 4 hours if needed for Pain May take 1.5 every 4 hours for severe pain ??? [DISCONTINUED] metoprolol tartrate (LOPRESSOR) 50 MG tablet Take 50 mg by mouth. 04/28/2017: Received from: [facility] Received Sig: Take 1 tablet by mouth 2 times daily. ??? [DISCONTINUED] miSOPROStol (CYTOTEC) 200 MCG tablet Take 200 mcg by mouth. 04/28/2017: Received from: [facility] Received Sig: Take 1 tablet by mouth 2 times daily with meals. ??? [DISCONTINUED] morphine (MS CONTIN) 15 MG 12 hr tablet Take 15 mg by mouth. 04/28/2017: Received from: [facility] Received Sig: Take 1 tablet by mouth 2 times daily ??? [DISCONTINUED] multivitamin (ONE A DAY) per tablet Take by mouth. 04/28/2017: Received from: [facility] Received Sig: take 1 tablet by oral route once daily with food ??? [DISCONTINUED] pramipexole (MIRAPEX) 0.5 MG tablet Take 0.5 mg by mouth. 04/28/2017: [facility] Received Sig: Take 1 tablet by mouth at bedtime. ??? [DISCONTINUED] terazosin (HYTRIN) 5 MG capsule Take 5 mg by mouth. 04/28/2017: [facility] Received Sig: Take 1 capsule by mouth at bedtime. Information source(s): Patient Summary of Changes to ECHO VASC TECH Med List New: dulcolax, calcium +d Discontinued: none Changed: diclofenac to qday; misoprostol to qday; mirapex to qhs; Patient was asked about OTC/herbal products specifically. ECHO VASC TECH med list reflects this. Based on the pharmacist???s assessment, the ECHO VASC TECH med list information appears reliable Patient appears compliant: Yes Allergies were reviewed, assessed, and updated with the patient. Medications currently not available for use during hospital stay. Family/Patient construction sales representative states they will bring topicals to [facility]. Thank you for the opportunity to participate [...] point he can't function at home. - [facility] consult, patient of Dr Mcclure - YEVGENIY dilaudid. He also does ok with oral oxycodone and [place] - NPO, IVMF -Also has ordered for [...] care. Talked to patient. Dilshad John MD [facility] Hospitalist documented in this encounter H&P Notes Mili Monet MD - 04/28/2017 2:30 AM CDT Admission History and Physical Speedy HendricksSHREYA 1940, [facility] Prd Acute low back pain due to trauma [M54.5] PCP: Kannan Nieto MD, Code status: Full Code Extended Emergency Contact Information Primary Emergency Contact: Sania Hendricks Address: [address] [place] [address] Mobile Relation: Spouse Secondary Emergency Contact: Chastity Hendricks [facility] Mobile Relation: Child Date of Service: 04/28/2017 [...] point he can't function at home. - [facility] consult, patient of Dr Mcclure - IV dilaudid. He also does ok with oral oxycodone and [place] - NPO, IVMF - Consider steroid but [...] not show any fracture. He was prescribed [place]. The pain did not improve. Patient saw [...] L3-4 ; Surgeon: Hang Mcclure MD; Location: [facility]; Service: ??? TONSILLECTOMY Allergies Reviewed by myself [...] mouth 2 (two) times a day. ??? multivitamin,rv-moag-nzeienug (COMPLETE MULTIVITAMIN) Tab Take by mouth. ??? [...] Social History Narrative He severed in the [employer]. 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 Family History Reviewed by myself with [...] COMPATIBLE Unit Type O Pos Unit Number [id number] Status Released Component Red Blood Cells PRODUCT CODE [id number] Crossmatch Result Value Ref Range Crossmatch COMPATIBLE Unit Type O Pos Unit Number [id number] Status Released Component Red Blood Cells PRODUCT CODE [id number] Creatinine Result Value Ref Range Creatinine 1.34 (H) 0.70 - 1.30 mg/dL GFR MDRD Af Amer >60 >60 mL/min/1.73m2 GFR MDRD Non Af Amer 52 (L) >60 mL/min/1.73m2 Antibody Identification Result Value Ref Range Antibody ID > 3hr for more blood;Anti-Mcalester No new imaging obtained EKG: Normal sinus rhythm rate 62 bpm. No previous tracing for comparison Pertinent Labs/EKG/XRAY Reviewed Social History, Family History, PMH, PSH, Medications and Allergies reviewed. Total time: 70 minutes with >50% time spent with coordination of care and counseling reviewing plan of care with patient and family 04/28/2017 Mili Monet MD [facility] Medicine Service documented in this encounter Consult Notes Rae Campo PA-C - 04/28/2017 12:49 PM CDT ORTHOPEDIC CONSULTATION Consultation Speedy HendricksSHREYA 1940, [facility] Prd Acute low back pain due to trauma [M54.5] PCP: Kannan Nieto MD, Code status: Full Code Extended Emergency Contact Information Primary Emergency Contact: Sania Hendricks Address: [address] [place], [place] [id number] [facility] Mobile Relation: Spouse Secondary Emergency Contact: Chastity Hendricks [facility] Mobile Relation: Child CHIEF COMPLAINT: Acute low [...] scan ordered which he had done at [facility]. He was scheduled to see [...] day. 04/27/2017 at just started 04/27 ??? multivitamin,xu-oddw-ucrnhuff (COMPLETE MULTIVITAMIN) Tab Take 1 tablet by [...] Mcclure and Dr. Burger, on-call surgeon for [facility] and they are in agreement with [...] follow this patient. Thank you for including [facility] in the care of Speedy Hendricks. [...] behalf by Jhon Park, a trained medical record coder. The creation of this record is based [...] L3-4 ; Surgeon: Hang Mcclure MD; Location: [facility] Main OR; Service: ??? TONSILLECTOMY Past Medical [...] l stenosis. Narrative 04/29/2017 9:20 AM CDT [facility] MR LUMBAR SPINE WO CONTRAST 04/28/2017 2:12 [...] note might be different from the original. [facility] MR LUMBAR SPINE WO CONTRAST 04/28/2017 2:12 [...] 12-lead, tracing only (04/28/2017 2:05 AM CDT) [facility] Method Time Signature Systolic Blood 184 mmHg 04/28/2017 [facility] Pressure 8:51 AM CDT CONVERSION Diastolic Blood 98 mmHg 04/28/2017 [facility] Pressure 8:51 AM CDT CONVERSION Ventricular Rate 60 BPM 04/28/2017 [facility] 8:51 AM CDT CONVERSION Atrial Rate 60 BPM 04/28/2017 [facility] 8:51 AM CDT CONVERSION MT Interval 160 ms 04/28/2017 [facility] 8:51 AM CDT CONVERSION QRS Duration 88 ms 04/28/2017 [facility] 8:51 AM CDT CONVERSION QT 432 ms 04/28/2017 [facility] 8:51 AM CDT CONVERSION QTc 432 ms 04/28/2017 [facility] 8:51 AM CDT CONVERSION P Donner 16 degrees 04/28/2017 [facility] 8:51 AM CDT CONVERSION R AXIS 16 degrees 04/28/2017 [facility] 8:51 AM CDT CONVERSION T Donner 19 degrees 04/28/2017 HE RADIANT 8:51 AM CDT CONVERSION Interpretation Normal sinus rhythm 04/28/2017 HE R ADIANT ECG Normal ECG 8:51 AM CDT CONVERSION No previous ECGs available Confirmed by VEL ??SUKHJINDER WELSH LOC:JN ([id number]) on 04/28/2017 8:5 1:37 AM Specimen Anatomical [...] Lumbago documented in this encounter Care Teams Battery Tester And Repairer Relationship Specialty Start Date End Date Primary Dipak Kasper MD PCP - General 09/21/1204/18 documented as of this encounter
--- OUTSIDE RECORDS SUMMARY | 2022-07-03 14:29 | XMS_ITS | Encounter Summary ---
:1940 Author Organization [place] Address [facility] [place] [address] Care Team Providers Name Role Phone Unavailable Primary Care Provider Unavailable Reason for Visit Reason Comments Surgical Followup 02/06 left foot surgery. Seco nd metatarsal fracture nonunion, left foot Encounter Details Date Type Department Care Team Description 04/30/2011 Office Visit [facility] aftercare Clinic Yumiko Castellanos DPM (Primary Dx) [address] [phone] [place], [place] [id number] Social History Tobacco Use Types Packs/Day Years [...]
--- OUTSIDE RECORDS SUMMARY | 2022-07-03 14:29 | XMS_ITS | Encounter Summary ---
:1940 Author Organization [place] Address [address] [place] [address] Care Team Providers Name Role Phone Unavailable Primary Care Provider Unavailable Reason for Visit Reason Comments Surgical Followup 02/06 post op left foot 2nd m etatarsal Fx. Encounter Details Date Type Department Care Team Description 03/05/2011 Office Visit [facility] Yumiko Castellanos DPM (Primary Dx) [address] [place] [address] [place] [address] [phone] [place] [address] Social History Tobacco Use Types [...]
--- OUTSIDE RECORDS SUMMARY | 2022-07-03 14:29 | XMS_ITS | Encounter Summary ---
:1940 Author Organization [place] Address [address] [place] [address] Care Team Providers Name Role Phone Unavailable Primary Care Provider Unavailable Reason for Visit Reason Comments Surgical Followup 02/06 left foot post op. Encounter Details Date Type Department Care Team Description 02/14/2011 Office Visit [facility] Sal [facility]arro Afterca re following Yariel Castellanos DPM surgery of the [facility] [employer] [place] [address] musculoskeletal system, [place] [address] E NEC (Primary Dx) [phone] [facility] 100 [place], [place] [address] Social History Tobacco Use Types [...] Ref Test Analysis Performed At [facility] Range Method Time Signature Specimen Toe [place] Description [facility] Culture Micro Heavy growth [place] Methicillin [facility] Staphylococcus aureus (MRSA) Micro Report FINAL 02/17/[address] [place] [address] [facility] Specimen Anatomical Collection Method Collection Time [...] Number [facility] [employer] [address] [place] [address] [facility] documented in this encounter Visit Diagnoses Diagnosis Aftercare following surgery of the [facility], NEC - Primary documented in this encounter
--- OUTSIDE RECORDS SUMMARY | 2022-07-03 14:29 | XMS_ITS | Encounter Summary ---
:1940 Author Organization [place] Address [address] [place] [address] Care Team Providers Name Role Phone Unavailable Primary Care Provider Unavailable Reason for Visit Reason Comments Surgical Followup left foot post op. Encounter Details Date Type Department Care Team Description 09/17/2011 Office Visit [facility] Sal [facility]arro y aftercare Clinic Yumiko Castellanos DPM (Primary Dx) [address] [place] [address] [facility] [phone] [place] [address] Social History Tobacco Use [...] a regular shoe on lt. F/U prn. OVEMENT INTERN documented in this encounter Nursing Notes 09/17/2011 [...] Surgery aftercar e Results for this VIEWS IMPROVEMENT INTERN procedure are i n the results section. documented in this encounter Results X-ray lt Foot G/E 3 vws* (09/17/2011 9:01 AM IMPROVEMENT INTERN) Anatomical Region Laterality Modality Foot, Ankle Left Other Specimen (Source) Anatomical Collection Method Collection Time Re ceived Time Location / / Volume Laterality 09/17/2011 9:01 AM IMPROVEMENT INTERN Impressions 09/17/2011 11:23 AM IMPROVEMENT INTERN FOOT THREE OR MORE VIEWS LEFT Sep [...]
--- OUTSIDE RECORDS SUMMARY | 2022-07-03 14:29 | XMS_ITS | Encounter Summary ---
:1940 Author Organization [place] Address [address] [place] [address] Care Team Providers Name Role Phone Unavailable Primary Care Provider Unavailable Encounter Details Date Type Department Care Team Description 02/06/2011 Operative Report [facility] Daniel Trujillo, (Quick Technician) [facility] DPM Results [address] [place], [place] [address] (Wo rk) Social History Tobacco [...] medial and laterally and with a small Sequoyah blade, I was able to carefully dissect [...] DPM MT: [id number] Name: SPEEDY MCDUFFIE Account: [id number] : 1940 Procedure Date: 02/06/2011 Document: [id number] cc: Michelle Hedrick MD documented in this encounter Plan of Treatment Not on filedocumented as of this encounter Visit Diagnoses Not on filedocumented in this encounter
--- OUTSIDE RECORDS SUMMARY | 2022-07-03 14:29 | XMS_ITS | Encounter Summary ---
:1940 Author Organization [place] Address [facility] [place] [address] Care Team Providers Name Role Phone Unavailable Primary Care Provider Unavailable Reason for Visit Reason Comments Surgical Followup 02/06 left foot post op and r ight great toe post op. Encounter Details Date Type Department Care Team Description 04/02/2011 Office Visit [facility] aftercare Clinic Yumiko Castellanos DPM (Primary Dx) [address] [place] [address] [phone] [place], [place] [phone] Social History Tobacco Use Types Packs/Day Years [...]
--- OUTSIDE RECORDS SUMMARY | 2022-07-03 14:29 | XMS_ITS | Encounter Summary ---
:1940 Author Organization [place] Address [address] [place] [address] Care Team Providers Name Role Phone Unavailable Primary Care Provider Unavailable Encounter Details Date Type Department Care Team Description 02/06/2011 Results [facility] [place], Sal Castellanos, DPM Hospital Results [address] [place], [place] [address] (Wo rk) Social History Tobacco [...]
--- OUTSIDE RECORDS SUMMARY | 2022-07-03 14:29 | XMS_ITS | Encounter Summary ---
:1940 Author Organization [place] Address [address] [place] [address] Care Team Providers Name Role Phone Unavailable Primary Care Provider Unavailable Reason for Visit Reason Onset Date Comments Patient Inquiry 02/19/2011 [facility] ng Encounter Details Date Type Department Care Team Description 02/19/2011 Telephone [facility] Sal Chaparro Pat iestar Inquiry ([facility] [place] DPM and Creat rising) [address] [place] [address] [phone] Social History Tobacco Use Types Packs/Day Years [...] and call daughter Raquel with plan @ [phone]. Thanks, Aruna Arriaza RN documented in this encounter Plan of Treatment Not on filedocumented as of this encounter Visit Diagnoses Not on filedocumented in this encounter
--- OUTSIDE RECORDS SUMMARY | 2022-07-03 14:29 | XMS_ITS | Encounter Summary ---
:1940 Author Organization [place] Address [address] [place] [address] Care Team Providers Name Role Phone Unavailable Primary Care Provider Unavailable Reason for Visit Reason Onset Date Comments Schedule Surgery 01/30/2011 Encounter Details Date Type Department Care Team Description 01/30/2011 Telephone [facility] Sal Love, Schedule Surgery [address] [facility] [place] [address] 1021 [facility] E [phone] [address] [place], [place] [address] (Wo rk) Social History Tobacco Use Types Packs/Day Years Used Date Never Assessed Sex Assigned at Date Recorded Not on file documented as of this encounter Miscellaneous Notes Telephone Encounter - Kandy Cain - 02/04/2011 1:02 PM CDT Packet mailed. Kandy Cain CMA Telephone Encounter - Kandy Cain - 01/31/2011 12:49 PM CDT Added to [place] Telephone Encounter - Kandy Cain - 01/31/2011 10:34 AM CDT Surgery scheduled. Left with details. Date/Time: 02/06/2011 @ 10:50 am Hospital: [facility] Anesthesia: POP Surgeon: Sal [facility]arro D.P.M. Preop:Unknown [...] surgery details for pt? February 06 or [phone] or [phone] Thank you, Kandy Cain CMA documented in this encounter Plan of Treatment Not on filedocumented as of this encounter Visit Diagnoses Not on filedocumented in this encounter
--- OUTSIDE RECORDS SUMMARY | 2022-07-03 14:29 | XMS_ITS | Encounter Summary ---
:1940 Author Organization [place] Address [facility] [place] [address] Care Team Providers Name Role Phone Unavailable Primary Care Provider Unavailable Reason for Visit Reason Comments Musculoskeletal Problem pt states he broke his left great toe and 2nd toe. He is still having trouble/pain in his 2nd toe. Sx since September. Encounter Details Date Type Department Care Team Description 01/29/2011 Office Visit [facility] Sal Chaparro Fractu re, nonunion (Primary Dx); Clinic [place] F, DPM Other hammer toe (acquired); [address] [place] [address] Pain in so ft tissues of limb [place] [facility] [phone] [place], [place] [phone] Social History Tobacco Use Types Packs/Day Years Used Date Never Assessed Sex Assigned at Date Recorded Not on file documented as of this encounter Progress Notes Sal Chaparro - 01/30/2011 4:52 PM CDT Subjective: Pt is seen today as a new pt self referral with the [facility]. 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 Pt has been treated in CAM boot [...] area. X-rays were reviewed Nov 2010 from [facility] with the pt which show [...]
--- OUTSIDE RECORDS SUMMARY | 2022-07-03 14:29 | XMS_ITS | Encounter Summary ---
:1940 Author Organization [place] Address [address] [place] [address] Care Team Providers Name Role Phone Unavailable Primary Care Provider Unavailable Reason for Visit Reason Onset Date Comments Surgical Followup 02/08/2011 Encounter Details Date Type Department Care Team Description 02/08/2011 Telephone [facility] Sal Chaparro, Surgical Followup [place] DPM [address] [place] [address] [facility] 100 [place], [place] [address] (Wo rk) Social History Tobacco [...]
--- OUTSIDE RECORDS SUMMARY | 2022-07-03 14:29 | XMS_ITS | Encounter Summary ---
:1940 Author Organization [place] Address [address] [place] [address] Care Team Providers Name Role Phone Unavailable Primary Care Provider Unavailable Reason for Visit Reason Comments Surgical Followup 02/06/11 post op left foot wi th hardware. pt is having pain. 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
--- OUTSIDE RECORDS SUMMARY | 2022-07-03 14:29 | XMS_ITS | Encounter Summary ---
:1940 Author Organization [place] Address [address] [place] [address] Care Team Providers Name Role Phone Unavailable Primary Care Provider Unavailable Reason for Visit Reason Comments Surgical Followup 02/06 left foot post op. Encounter Details Date Type Department Care Team Description 06/04/2011 Office Visit [facility] Sal Chaparro aftercare (Primary Dx); Clinic Yumiko Castellanos DPM [place] [address] [place] [address] [place] [address] [place] [phone] [place] [address] Social History Tobacco Use Types [...]
--- OUTSIDE RECORDS SUMMARY | 2022-07-03 14:29 | XMS_ITS | Encounter Summary ---
:1940 Author Organization [facility] Address [address] [place] [address] Care Team Providers Name Role Phone Unavailable Primary Care Provider Unavailable Reason for Visit Reason Comments Surgical Followup follow up to left foot surge ry. Encounter Details Date Type Department Care Team Description 07/16/2011 Office Visit [facility] Sal Chaparro Foot p ain (Primary Dx); Clinic Yumiko Castellanos DPM [address] [address] [place] [phone] [place] [address] Social History Tobacco Use Types [...]
== END 2022-07-03 14:20 | disposition home or self-care (01) ==
LOC: WOUND 14:20
PROVIDERS: PCP Family Medicine; Visit Provider Nurse Practitioner Family
DX: L89.324 Pressure ulcer of left buttock, stage 4 (principal)
CPT/HCPCS: 15271; Q4151

== ENCOUNTER 2022-07-17 13:47 | Outpatient (CLI) | payer MEDICARE, BC, SELFPAY ==
--- OUTSIDE RECORDS SUMMARY | 2022-07-17 13:51 | XMS_ITS | Clinical Summary ---
:1940 Author Organization [facility] [place] [address] Care Team Providers Name Role Phone Marija Ramirez MD Primary Care Provider [phone] [facility], [place] Unavailable [phone] Allergies Active Allergy Reactions Severity Noted [...] mouth two times tabletIndications: daily. Essential hypertension WalkerIndications: Walker with 1 Each 0 07/10/20 Active Left leg weakness wheels,seat,hand 22 brakes,and basket for home use. HYDROcodone-acetam Take 1 Tablet by 24 Tablet 0 04/12/2003/20 Discontinued inophen (NORCO) mouth every 4 022 (*Med 5-325 mg per hours if needed [...] Discontinued 5 mg mg) by mouth at 022 (*Pa tient capsuleIndications bedtime. s tates no [...] com plete/Regime n complete/L evel of care [facility]) ciprofloxacin HCl Take 500 mg by 0 04/28/20 Discontinued (Cipro) 500 mg mouth once daily. (*Med tablet complete/R egime n complete/L evel of [facility]) melatonin 3 mg Take 3 mg by [...] (HC). 04/2017. Hospitalized for th is at [facility] 05/15/2017 Overview: Thought to be secondary to [...] 10/03/2009 11/22/2013 Routine general medical examination at [facility] 009 11/22/2013 facility Overview: Discussed colonoscopy - he'll consider Hyperglycemia 11/27/2008 11/22/2013 Encounters Date Type Specialty Care Team Description 06/24/2022 Office Visit Marija Ramirez Medicare AN VICIA MD Thuy (subsequent) Vi sit; Follow Up; Medi cation Management 06/24/2022 Telephone Marija Ramirez Follow Up MD Thuy 06/24/2022 Travel 06/19/2022 Home Care Visit Jeanette Hunt, RN SN - NOT TAKEN UNDER HOME CARE - ELIZABETH E VISIT 06/17/2022 Telephone Marija Ramirez MD 05/30/2022 Orders Only Scanner <No scans attac hed> 04/30/2022 Hospital Encounter Lillian Peterson, ONCOLOGY PATIENT NAVIGATOR P soas abscess, left (HC) 04/30/2022 Travel from Last 3 Months Immunizations Name Administration Dates Next Due AMB INFLUENZA IIV3 (AGE 65+ YRS) PF (Flu Clinic Only) 2017 COVID-19 vaccine ([employer] 30mcg/0.3mL) PF, 1, 11/15/2020 MDV Hep B [...] Family History Relation Name Status Comments Brother iJtendra Alive Father Ronald (Age 61) Mother Marisol [...] Description 09/16/2022 Office Visit Moises Patterson MD [address] [address] (Wo rk) Health Maintenance Due Date Last [...] 06/24/2022 Tdap Completed 06/27/2009 [facility] Pneumococcal series for age 65+ Completed 12/02/2016, 11/19, 10/03/2009, Additional history exists COVID-19 vaccine series Completed 05/30/2022, 07/25/2021, 12/04/2020, Additional history exists Goals Goal Patient Goal Associated Recent Patient-Stated? Author Type Problems Progress BLOOD PRESSURE Blood Pressure No Yessenia barrera, - MAINTAINS BP Jami Matute less than 140/90 Medical Devices Implanted Type Area Fudge Candy Maker Device Shelf Model / Identifier Expiration Serial / Date Lot Screw Canclls 4.0x15mm [id number] - [id number] Spine SOFAMOR DANEK [id number] / Implanted: Qty: 3 on 02/18/2006 at [facility] Implan ts / Plate 42.5mm Zephir - [id number] SOFAMOR DANEK [id number] / Implanted: Qty: 1 on 02/18/2006 at [facility] / Procedures Procedure Name Priority Date/Time [...] PM CDT Uncomplicated CT-guided placement of a 12-Romanian Ballard Bah drainage catheter into the left psoas fluid collection. Please note that all CT scans at this [facility] use dose modulation, iterative reconstruction, and/or weight-based dosing when appropriate to reduce radiation dose to as low as reasonably achievable. Dictated by Orin Goff MD @ 2021 3:55:47 PM (Electronically Signed) Narrative 04/30/2022 3:55 PM CDT For Patients: ??As a result of the Cures Act, medical imaging exams and procedure report s are released immediately into your [facility] medical record. ??You may view this report [...] hemorrhage and an informed consent was obtained. [place] protocol was observed. Time-out was conducted. With [...] the tract was dilated and a 12- Romanian Ballard Bah drainage catheter was placed. At [...] during the procedure Procedure Note Orin Goff, COSMEBS - 04/30/2022For matting of this note might be different from the original. For Patients: As a result of the ntury Cures Act, medical imaging exams and procedure reports are released immediately into your electronic medical record. You may view this report before your referring provider. If you have questions, please contact [facility] health care provider. INDICATION: Possible left psoas abscess; needs drain age. Technique : CT-guided placement of a drainage cathet er into the left psoas fluid collection. PROCEDURE: The procedure was explained to the patie nt including the possible complications of hemorrhage and an informed consent was obtained. [place] protocol was observed. Time-out was conducted. With [...] guidewire the tract was dilated and a 12-Romanian Ballard Bah drainage cath eter was placed. [...] IMPRESSION: Uncomplicated CT-guided placement of a 1 2-Romanian Ballard Bah drainage catheter into the left psoas fluid collection. Please note that all CT scans at this [facility] use dose modulation, iterative reconstruction, and/or weight-based dosing when appropriate to reduce radiation dose to as low as reasonably achievable. Dictated by Orin Goff MD @ 2021 3:55:47 PM (Electronically Signed) Lillian Peterson NP CT BODY FLUID CULTURE,STAIN (AEROBIC) (04/30/2022 2:21 PM CDT) [facility] Method Time Signature CULTURE No Growth. 05/03/2022 [facility] 9:06 AM CDT LABORATORY-LANI TRAL LABORATORY GRAM STAIN No PMNs 05/03/2022 [facility] 9:06 AM CDT LABORATORY-LANI TRAL LABORATORY GRAM STAIN No organisms 05/03/2022 [facility] seen 9:06 AM CDT LABORATORY-LANI TRAL LABORATORY Specimen Anatomical Collection Method Collection Time Receive d Time (Source) Location / / Volume Laterality Body Fluid BODY FLUID Non-Blood / 04/30/2022 2:21 PM 2 2:45 SPECIMEN / Unknown Unknown CDT PM CDT Lillian Peterson NP MICROBIOLOGY Performing Organization Address City/State/ZIP Code Phon e Number [facility] [address] [place] [address] LABORATORY-CENTRAL 2000 LABORATORY ANAEROBIC CULTURE (04/30/2022 2:21 PM CDT) [facility] gist Method Time Signature CULTURE No anaerobes 05/05/2022 [facility] isolated 11:02 AM CDT LABORATORY-LANI TRAL LABORATORY Specimen Anatomical Collection Method Collection Time Receive d Time (Source) Location / / Volume Laterality Other (Other) Non-Blood / 04/30/2022 2:21 PM 04/30/20 22 2:45 Unknown CDT PM CDT Lillian Peterson NP MICROBIOLOGY Performing Organization Address City/[facility]/ZIP Code Phon e Number [facility] [address] [place] [address] LABORATORY-CENTRAL 1999 LABORATORY (ABNORMAL) Platelet Count (04/30/2022 12:15 PM CDT) Analysis Performed At [facility] logist Time Signature PLATELET COUNT 208 140 - 440 04/30/2022 [facility] thou/cu mm 12:31 PM CDT LABORATORY-LANI TRAL LABORATORY MPV 11.1 (H) 6.5 - 11.0 04/30/2022 [facility] fL 12:31 PM CDT LABORATORY-LANI TRAL LABORATORY Specimen Anatomical Collection Method / Collection Time Recei fany Time (Source) Location / Volume Laterality Blood BLOOD SPECIMEN / Venipuncture / 04/30/2022 12:15 04/30 Unknown Unknown PM CDT 12:25 PM CDT Orin Goff MBBS HEMATOLOGY Performing Organization Address City/[facility]/ZIP Code Phon e Number [facility] [address] [place] [address] LABORATORY-CENTRAL 1999 LABORATORY (ABNORMAL) Hemoglobin (04/30/2022 12:15 PM CDT) athologist Signature HEMOGLOBIN 10.8 (L) 13.5 - 04/30/2022 [facility] 17.5 g/dL 12:31 PM CDT LABORATORY-CENT RAL LABORATORY MCV 94 80 - 100 04/30/2022 [facility] fL 12:31 PM CDT LABORATORY-[facility]ENT [facility] LABORATORY Specimen Anatomical Collection Method / Collection Time Recei fany Time (Source) Location / Volume Laterality Blood BLOOD SPECIMEN / Venipuncture / 04/30/2022 12:15 04/30 Unknown Unknown PM CDT 12:25 PM CDT [facility] HEMATOLOGY Performing Organization Address City/[facility]/ZIP Code Phon e Number [facility] [employer] [address] [place] [address] [place] [address] LABORATORY-CENTRAL 2000 LABORATORY Protime-INR (04/30/2022 12:15 PM CDT) athologist Signature INR 1.0 <1.3 04/30/2022 [facility] 12:38 PM CDT LABORATORY-CENTR AL LABORATORY PROTIME 13.0 11.8 - 13.9 04/30/2022 [facility] sec 12:38 PM CDT LABORATORY-CENTR AL LABORATORY Specimen Anatomical Collection Method / Collection Time Recei fany Time (Source) Location / Volume Laterality Blood BLOOD SPECIMEN / Venipuncture / 04/30/2022 12:15 04/30 Unknown Unknown PM CDT 12:25 PM CDT Narrative [facility] LABORATORY-CENTRAL LABORAT ORY - 04/30/2022 12:38 [...] seconds if the patient is on UFH. [facility] HEMATOLOGY Performing Organization Address City/State/ZIP Code Phon e Number [facility] [address] [place] [address] [facility] [place] [address] LABORATORY-CENTRAL 2000 LABORATORY from Last 3 Months Insurance Payer Benefit Plan / Subscriber ID Effective Dates Phone Addre ss Type Group MEDICARE PART MEDICARE PART [id number] 2007[place] B - [place] USE B [place] ONLY nt [address] [place] [address] MEDICARE PART MEDICARE PART [id number] 2007-[place] A - [place] USE A HB ONLY nt [address] [place] [address] MEDICARE PPS HC MEDICARE [id number] 2007-Prese PO GERI X 2019 PPS nt [address] [place] [address] [place] BLUE CROSS [id number] 2016-Presen [address] [address] [place], [place] [id number] [place]OSS BLUE CROSS [id number] 2016-[place] [address] [address] [place], [place] [id number] Speedy Hendricks Personal/Family Self 1940 [address] [facility] (Home) [place] [phone] [place], [place] (Work) [address] Advance Directives Latest Code Status on File Code Status Date Activated Date Inactivated Comments Full Code 04/30/2022 12:01 PM 05/01/2022 2:22 AM Code Status Discussion: Reviewed Preferences Full Code 02/18/2006 7:54 PM 02/20/2006 1:40 PM Full Code 02/18/2006 4:12 PM 02/18/2006 7:54 PM Full Code 02/18/2006 9:49 AM 02/18/2006 4:12 PM Care Teams General Helper Relationship Specialty Start Date End Date Marija Ramirez MD PCP - General Family Practice 05/13/[address] [place] [address] [facility] [place] 06/17/[address] [place] [address]
--- OUTSIDE RECORDS SUMMARY | 2022-07-17 13:51 | XMS_ITS | Encounter Summary ---
:1940 Author Organization [facility] Address [address] [place] [address] Care Team Providers Name Role Phone Unavailable Primary Care Provider Unavailable Encounter Details Date Type Department Care Team Description 07/16/2022 Orders Only [facility] Denilson Quinones MD [address] [place] [address] [place], [place] [phone] (Wo rk) Social History Tobacco Use Types Packs/Day Years Used Date Smoking Tobacco: Never Assessed Sex Assigned at Date Recorded Not on file documented as of this encounter Plan of Treatment Not on filedocumented as of this encounter Procedures Procedure Name Priority Date/Time Associated Diagnosis Comme nts CHEMISTRY Routine 07/16/2022 Results for thi s procedure are in the resu lts section. documented in this encounter Results (ABNORMAL) Spectrae Chemistry (07/16/2022) P athologist Signature BUN 30 (H) 6 - 19 [facility]PS [facility]PECTRA mg/dL [facility] Creatinine 3.05 (H) 0.60 - 1.30 APS [facility]PECTRA mg/dL [facility] Comment: Custom Exception BUN/Creatinine Ratio 9.8 (L) 10.0 - 20.0 APS SPE CTRA [...] ceived Time Location / / Volume Laterality 07/16/2022 07/17/2022 8:10 AM CDT Narrative [facility] - 07/17/2022 Unless otherwise specified, test(s) performed at: [facility], [address] [place], [place] [address]a [place] [address] [employer] TECHNICIAN: Raheem Malik M.D., Ph.D For any questions, please call customer service at FREQUENCY:OTHER Resulting Agency Comment Specimen source: Serum Denilson Holly MD LAB BLOOD ORDERABLES Performing Organization Address City/State/ZIP Code Phon e Number [facility]PS [facility] documented in this encounter Visit Diagnoses Not on filedocumented in this encounter
--- OUTSIDE RECORDS SUMMARY | 2022-07-17 13:51 | XMS_ITS | Encounter Summary ---
:1940 Author Organization [facility] Address [address] [place] [address] Care Team Providers Name Role Phone Unavailable Primary Care Provider Unavailable Encounter Details Date Type Department Care Team Description 07/09/2022 Treatment [facility] Denilson Chand MD [address] [place] [address] [place], [place] [phone] (Wo rk) Social History Tobacco Use Types Packs/Day Years Used Date Smoking Tobacco: Never Assessed Sex Assigned at Date Recorded Not on file documented as of this encounter Miscellaneous Notes Dialysis Note - Denilson Holly MD - 07/09/2022 12:48 PM CDT Date: Jul 09, 2022 Patient Name: Speedy Hendricks : 1940 Chart #: [id number] Sex: M This patient was personally seen for a complete visit as part of routine monthly dialysis care. A review of the dialysis treatment, blood pressure, estimated dry weight and recent lab values was made. These were discussed with the patient and staff as necessary. Treatment Data for 07/09/2022 started at:11:49 AM Dialyzer: 180NRe Optiflux Na: 138 mEq/L Bicarb: 36 mEq/L Dialysate: 3.0 K, 2.25 Ca, 1.0 Mg, 100 Dextrose (G3231) Dialysate/Machine Temp (prescribed): 37 C Dialysate/Machine Temp (actual): 36.5 C BFR (prescribed): 350 BFR (actual): 350 Prescribed time: 03:00 EDW: 71.5 kg Access Type: Active (In Use):CVCatheter-Tunneled/Chest Pre Dialysis Vitals (for 07/09/2022 11:40 AM ) Pre BP (sit): 161/86 Pre Wt: 72.3 kg Temp: 97 F Post Dialysis Vitals (for 07/07/2022 2:58 PM ) Post BP (sit): 141/83 Post Wt: 72.6 kg Current Dialysis Vitals (for 07/09/2022 12:05 PM ) BP (sit): 131/80 AP(-) / INTAKE CLERK: 152/102 Pulse: 89 Chairside data as of 07/09/2022 12:05 PM Last 3 Treatments 07/07/2022 07/04/2022 07/02/2022 EDW (kg) 71.5 71.5 71.5 Weight Pre (kg) 72.9 72.5 72.3 Weight Post (kg) 72.6 71.5 71.7 Dialytic Weight Loss (kg) -0.3 -1 -0.6 EDW Deviation (kg) 1.1 0.0 0.2 BP Sit Pre 132/68 139/76 131/66 BP Sit Post 141/83 135/80 140/98 UF Rate (mL/kg/hr) 1 5 3 Prescribed BFR 350 350 350 Average Delivered BFR 360 360 350 Prescribed Treatment Time 03:00 03:00 03:00 Actual Treatment Time 03:01 03:00 03:03 CRYSTAL FINISHER: Denilson Holly MD LOCATION: [place] [id number] SCHEDULE: M-W- 2nd Shift EDW: kg. DIALYZER: HD DURATION: NEEDLE SIZE: ANTICOAG: BATH: QB: ml/min QD: ml/min Subjective No new complaints. 07/09/22: Patient made ESRD, previously prolonged DEJA given ongoing slow recovery of renal function but stalled and still requiring 3x/week dialysis. He is back home from SNF after long hospitalization and then stay at rehab. Daughters very supportive to him. He has access placement scheduled next month, has been difficult to convince him to do this Advanced Practitioner Subjective Review of Systems None reported. Problem List Description ICD9 Code ICD10 Code End stage renal disease 585.6 N18.6 Dependence on renal dialysis V45.11 Z99.2 Exam Respiratory - Clear to auscultation bilaterally. Cardiovascular - Regular rate. Regular rhythm. Edema - No leg edema. Access - PCAD c/d/o Medication List Medication Sig Start Date apixaban [...] Date Penicillins Skin Rash~Skin Rash procaine Unknown Medications reviewed and no changes were made. Treatment and Adequacy Assessment BUN mg/dL 28 (07/02/22) 24 (06/25/22) 34 (06/18/22) 29 (06/11/22) 37 (06/04/22) UREA NITROGEN (MG/DL) IN SER/PLAS - POST DIALYSIS mg/dL 7 (06/25/22) 13 (05/21/22) 11 (04/23/22) 18 (04/16/22) URR % 71 (06/25/22) 76 (05/21/22) 74 (04/23/22) 69 (04/16/22) spKt/V Gotch 1.39 (06/25/22) 1.78 (05/21/22) 1.8 (04/23/22) eKdrt/V 1.27 (06/25/22) 1.45 (05/21/22) 1.47 (04/23/22) spKt/V (Daugirdas II) 1.3600 (06/25/22) 1.6600 (05/21/22) 1.6300 (04/23/22) 1.3700 (04/16/22) Dialysis is adequate. Achieves prescribed time - Yes Achieves prescribed frequency - Yes Continue current prescription. Vascular Access Assessment Type of access: PCAD Access placement scheduled at [facility] in July Anemia Assessment HEMOGLOBIN (G/DL) IN BLOOD g/dL 11.6 (07/02/22) 11.1 (06/25/22) 10.2 (06/18/22) 10.6 (06/11/22) 10.1 (06/04/22) PLATELETS 1000/mcL 198 (06/25/22) 244 (05/21/22) 203 (04/23/22) 229 (04/16/22) IRON SATURATION % 31 (04/16/22) FERRITIN ng/mL 704 (04/23/22) 989 (04/16/22) Hemoglobin is above goal. Iron Saturation is Ferritin is at goal. Will adjust DYLAN and intravenous iron per protocol. Nutritional and Metabolic Assessment ALBUMIN (G/DL) g/dL 3.9 (06/25/22) 3.7 (05/21/22) 3.2 (04/23/22) 2.7 (04/16/22) Sodium mEq/L 140 (07/02/22) 138 (06/25/22) 140 (06/18/22) 142 (06/11/22) 141 (06/04/22) POTASSIUM (MMOL/L) IN SER/PLAS mEq/L 4.0 (07/02/22) 4.3 (06/25/22) 4.7 (06/18/22) 4.6 (06/11/22) 3.7 (06/04/22) BICARBONATE (CO2) mEq/L 28 (07/02/22) 29 (06/25/22) 23 (06/18/22) 28 (06/11/22) 30 (06/04/22) Albumin is below goal. Encourage high-biological value protein intake. Oral Nutritional Supplement program. Potassium is at goal. Bicarbonate is at goal. Continue same bicarbonate in dialysate. Bone and Mineral Metabolism Assessment CALCIUM mg/dL 8.9 (06/25/22) 9.1 (05/21/22) 8.6 (05/19/22) 9.1 (05/02/22) 8.6 (04/23/22) CALCIUM (MG/DL) CORRECTED FOR ALBUMIN IN SER/PLAS mg/dL 9.0 (06/25/22) 9.3 (05/21/22) 9.2 (04/23/22) 9.2 (04/16/22) PHOSPHATE (MG/DL) IN SER/PLAS mg/dL 5.0 (06/25/22) 3.7 (05/21/22) 4.5 (04/23/22) 3.7 (04/16/22) CALCIUM PHOSPHORUS PRODUCT, COR 45 (06/25/22) 34 (05/21/22) 41 (04/23/22) 34 (04/16/22) IPTH pg/mL 121 (04/23/22) 108 (04/16/22) Corrected Calcium is at goal. Phosphorous is at goal. Intact PTH is below goal. Administrative Services Officer will adjust binders and vitamin D per protocol and continue to provide dietary education. Cardiovascular Assessment Blood pressures reviewed and are acceptable. Intradialytic weight gains are appropriate. Estimated dry weight is appropriate. Transplant Status: Patient is not a candidate. age and co-morbidities Resuscitation Status Stable dialysis No changes today in prescription Access placement planned in July and it is scheduled, planning upper arm AVG as patient will not accept AVF or lower arm access Denilson Holly MD [ Signed And locked electronically On 07/09/2022 at 12:51:54 PM ] Transcribed: Denilson Holly ( 07/09/2022 ) Dialysis Note - Denilson Holly MD - 07/09/2022 11:52 AM CDT Date: Jul 09, 2022 Patient Name: Speedy Hendricks : 1940 Chart #: [id number] Sex: M Patient Type: ESRD Modality: Hemodialysis Manager Hardware: Denilson Holly MD Location: [place] [address] Schedule: -W- 2nd Shift Initial Access Date Regular Chronic Dialysis Began: 01/08/2022Initial Modality: Hemodialysis Initial Access used on first patient dialysis: Catheter - No Reason Selected Current Access Access used for current outpatient dialysis: Catheter - No Reason Selected Most recent History and Physical: 07/02/2022 Denilson Holly MD [ Signed And locked electronically On 07/09/2022 at 10:52:04 AM ] Transcribed: Denilson Holly MD ( 07/09/2022 ) documented in this encounter Plan of Treatment Not on filedocumented as of this encounter Visit Diagnoses Not on filedocumented in this encounter
--- OUTSIDE RECORDS SUMMARY | 2022-07-17 13:51 | XMS_ITS | Clinical Summary ---
:1940 Author Organization [facility] Address [address] [place] [address] Care Team Providers Name Role Phone Unavailable Primary Care Provider Unavailable Encounters Date Type Specialty Care Team Description 07/16/2022 Orders Only NephDenilson Isidro MD 07/09/2022 Orders Only NephDenilson Isidro MD 07/09/2022 Treatment Denilson Hloly MD 07/02/2022 Orders Only NephDenilson Isidro MD 07/02/2022 Treatment Denilson Holly MD 06/25/2022 Orders [...] 07/16/2022 Results for thi s procedure are i n the results section . HEMATOLOGY Routine 07/09/2022 Results for thi s procedure are i n the results section . CHEMISTRY Routine 07/09/2022 Results for thi s procedure are i n the results section . CHEMISTRY Routine 07/02/2022 Results for thi s procedure are i n the results section . HEMATOLOGY Routine 07/02/2022 Results for thi s procedure are i [...] . from Last 3 Months Results (ABNORMAL) Spectrae Chemistry (07/16/2022)Only the most recent of19 results within the time period is included. P athologist Signature BUN 30 (H) 6 [...] 07/17/2022 Unless otherwise specified, test(s) performed at: [facility], [address] [place] [address], [place] [address] COMPOSING ROOM MACHINIST: Raheem Malik M.D., Ph.D For any questions, please call customer service at FREQUENCY:OTHER Resulting Agency Comment Specimen source: Serum Denilson Holly MD LAB BLOOD ORDERABLES Performing Organization Address City/State/ZIP Code Phon e Number [facility] (ABNORMAL) HEMATOLOGY (07/09/2022)Only the most recent of13 resultswithin the time period is included. Analysis Performed At Patho logist Time Signature Hemoglobin 11.3 (L) 14.0 - [facility] 18.0 g/dL [facility] Hemoglobin x 3 33.9 (L) 42.0 - [facility] 54.0 % [facility] Specimen (Source) Anatomical Collection Method Collection Time Re ceived Time Location / / Volume Laterality 07/09/2022 07/11/2022 3:18 PM CDT Narrative [facility] - 07/11/2022 Unless otherwise specified, test(s) performed at: [facility], [address] [place] [address], [place] [address] COMPOSING ROOM MACHINIST: Raheem Malik M.D., Ph.D For any questions, please call customer service at FREQUENCY:OTHER Resulting Agency Comment Specimen source: Blood Denilson Holly MD LAB BLOOD ORDERABLES Performing Organization Address [place] Code Phon e Number [facility] HD KINETICS (06/25/2022)Only the most recent of4 resultswithin the time period is included. P athologist Signature % Urea 71 65 - 80 % [facility] Reduction [facility] Specimen (Source) Anatomical Collection Method Collection Time Re ceived Time Location / / Volume Laterality 06/25/2022 06/27/2022 8:15 AM CDT Resulting Agency Comment Specimen source: Plasma Denilson Holly MD LAB BLOOD ORDERABLES Performing Organization Address [place] Phon e Number [facility]PS SPECTRA [facility] [...] 06/27/2022 Unless otherwise specified, test(s) performed at: [facility], [address] [place] [address], [place] [address] COMPOSING ROOM MACHINIST: Raheem Malik M.D., Ph.D For any questions, please call customer service at FREQUENCY:MONTHLY Resulting Agency Comment Specimen source: Plasma Denilson Holly MD LAB BLOOD ORDERABLES Performing Organization Address [place] Phon e Number [facility]PS SPECTRA [facility] [...] 06/25/2022 06/27/2022 6:33 AM CDT Narrative [facility]PS Exablox [facility] - 06/27/2022 Unless otherwise specified, test(s) performed at: [facility], [address] [place] [address], [place] [address] COMPOSING ROOM MACHINIST: Raheem Malik M.D., Ph.D For any questions, please call customer service at FREQUENCY:MONTHLY Resulting Agency Comment Specimen source: Plasma Denilson Holyl MD LAB BLOOD ORDERABLES Performing Organization Address [...] 06/14/2022 Unless otherwise specified, test(s) performed at: [facility], [facility] [place] [address] COMPOSING ROOM MACHINIST: Raheem Malik M.D., Ph.D For any questions, please call customer service at FREQUENCY:OTHER Resulting Agency Comment Specimen source: Urine Denilson Holly MD LAB URINE ORDERABLES Performing Organization Address City/State/ZIP Code Phon e Number [facility] PATIENT INFORMATION (06/13/2022)Only the most recent of6 resultswithin the time period is included. P athologist Signature Patient BSA 1.77 sq. M. [facility] Comment: Normalized values are calculated using t he patient's actual BSA and normalized to the average BSA of 1.73m2. Specimen (Source) Anatomical Collection Method Collection Time Re ceived Time Location / / Volume Laterality 06/13/2022 06/14/2022 2:50 AM CDT Narrative [facility]PS [facility]RA [facility] - 06/14/2022 Unless otherwise specified, test(s) performed at: [facility], [facility] [place] [address] COMPOSING ROOM MACHINIST: Raheem Malik M.D., Ph.D For any questions, please call customer service at FREQUENCY:OTHER Resulting Agency Comment Specimen source: PD Fluid Denilson Holly MD LAB BLOOD ORDERABLES Performing Organization Address City/State/ZIP Code Phon e Number [facility] GFR (05/28/2022)Only the most recent of8 resultswithin the time period is included. athologist Signature eGFR CKD-EPI CR 30 mL/min [facility] 2020 [facility] Comment: [facility] has implemented the recommended eGFR calculation that [...] 05/29/2022 Unless otherwise specified, test(s) performed at: [facility], [address] [place] [address], [place] [address] COMPOSING ROOM MACHINIST: Raheem Malik M.D., Ph.D For any questions, please call customer service at FREQUENCY:OTHER Resulting Agency Comment Specimen source: Serum Denilson Holly MD LAB [id number] NSOLICITED RESULTS Performing Organization Address City/[facility] Code Phon e Number [facility] TRACE ELEMENTS (04/23/2022)Only the most recent of2 resultswithin the time period is included. P athologist Signature Aluminum <5 0 - 10 [facility] mcg/L [facility] Comment: This test was developed and its performa nce characteristics determined by [facility]. It has not been cleared or approved by the FDA. The laboratory is regulated under CLIA a s qualified to perform high complexity testing. This test is used fo r clinical purposes. It should not be regarded as investigational or fo r research. Test performed at [facility], [address] [place] [address]. Telephone . Medical Direct or: Henok Correa MD. Specimen (Source) Anatomical Collection Method Collection Time Re ceived Time Location / / Volume Laterality 04/23/2022 04/25/2022 7:04 PM CDT Narrative [facility]PS SPECT[facility] - 04/27/2022 Unless otherwise specified, test(s) performed at: [facility], [address] [place] [address] [facility] [facility] [place] [address] COMPOSING ROOM MACHINIST: Raheem Malik M.D., Ph.D For any questions, please call customer service at FREQUENCY:MONTHLY Resulting Agency Comment Specimen source: Serum Denilson Holly MD LAB BLOOD ORDERABLES Performing Organization Address City/State/ZIP Code Phon e Number [facility]PS SPECTRA [facility] from Last 3 Months Insurance Payer Benefit Plan / Subscriber ID Effective Dates Phone Addre ss Type [place] [id number] 2016-Present [phone] [address] [address] ([id number]) [place] [address]
--- OUTSIDE RECORDS SUMMARY | 2022-07-17 13:51 | XMS_ITS ---
:1940 Author Organization [facility], [facility] DOCUMENT DISCLAIMER The information in the [facility] Continuity of Care Document represents a summary of certain health and medical information. It may not contain the complete medical history for the patient and should be independently verified. The represented time in the document is Eastern Time. 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 His wif e a few months ago. MEDICATIONS Prescribed Medications for Dialysis Treatments Medication Instructions Dosage Route Start Date End Date Statu s Heparin Every 1600 Arterial Red April 16April 15, Activ e Sodium Treatment units Port 2021 2022 (Porcine) 1,000 Units/mL Catheter Lock Arterial Heparin Every 1600 Venous Blue April 16April 15, Active Sodium Treatment units Port 2021 2022 (Porcine) 1,000 Units/mL Catheter Lock Venous Iron Sucrose Every 100 mg Intravenous June A ctive (Venofer) Treatment - push 2021 Mircera Every 4 weeks 30 mcg Intravenous June Active - push 2021 Iron Sucrose 1X Week 50 mg Intravenous May 26May 25, Discontinued (Venofer) - push 2021 2022 Home Medications Medication Instructions Dosage Route Start [...] melatonin 3 mg ORAL April 28, Act shni 2021 metoprolol Take by mouth 1 tablet [...] Sign Value Date / Time Blood Pressure-sitting 149/81 mmHg July 16 12:00 PM Blood Pressure-standing 137/86 mmHg July 16 12:00 PM Heart Rate 82 beats per minute July 16, 2022 1 2:00 PM Respiratory Rate 16 breaths per minute July 16, 2022 12:00 PM Temperature 98.0 deg. F July 16, 2022 1 2:00 PM Weight Vital Sign Value Date / Time Estimated Dry Weight 71.5 kg July 02, 2022 11:59 PM Pre-Dialysis 71.90 kg July 16, 2022 1 2:00 PM Post-Dialysis 71.40 kg July 16, 2022 1 2:00 PM Other Other Value Date / Time Height 161 cm May 26, 2022 12:0 0 AM [facility] LAB RESULTS Hematology Result Type Result Value Relevant Interpretation Date Reference Range HGB 10.2 g/dL Males: 14.0 - Low [...] - June, (Calc) 2021 Platelets 198 1000/mcL 737-288 2234/mcL - June WBC (No Diff) 4.15 1000/mcL 4.8-10.8 Low June 25, thous/mcL 2021 RBC 3.60 mill/mcL Males: 4.70 - Low June 25, 6.10 mill/mcL 2021 Females: 4.20 - 5.40 mill/mcL HGB 11.1 g/dL Males: 14.0 - Low June 25, 18.0 g/dL 2021 Females: 12.0 - 16.0 g/dL Hemoglobin x 3 33.3 % Male: 14.0 - 18.0 Low Septembe r 07, g/dL; Female: 2021 12.0-16.0 g/dL HCT 35.1 % Males: 42 - 52% Low June 25 , Females: 37 - 47% 2021 HGB 11.6 g/dL Males: 14.0 - Low July 02, 18.0 g/dL 2021 Females: 12.0 - 16.0 g/dL Hemoglobin x 3 34.8 % Male: 14.0 - 18.0 Low Septembe r 14, g/dL; Female: 2021 12.0-16.0 g/dL HGB 11.3 g/dL Males: 14.0 - Low July 09, 18.0 g/dL 2021 Females: 12.0 - 16.0 g/dL Hemoglobin x 3 33.9 % Male: 14.0 - 18.0 Low Septembe r 21, g/dL; Female: 2021 12.0-16.0 g/dL Metabolic/Renal Result Type Result Value Relevant Reference Interpretation Date Range BUN 34 mg/dL 6-19 mg/dl High June 18, 2022 Creatinine, Serum 2.67 mg/dL 0.6-1.3 mg/dL High May BUN/Creat Ratio 12.7 08-07 - June 18, Sodium 140 mEq/L 136-145 mEq/L - June 18 2 Potassium 4.7 mEq/L 3.5-5.1 mEq/L - June 18 2 Chloride 103 mEq/L 96-108 mEq/L - June 18, 2022 Bicarbonate 23 mEq/L 22-29 mEq/L - June 18, 2022 BUN, Post 7 mg/dL 6-19 mg/dL - June 25, URR, Calc 71 % 65 - 80% - June 25, BUN 24 mg/dL 6-19 mg/dl High June 25, Creatinine, Serum 2.84 mg/dL 0.6-1.3 mg/dL High June 25, 2022 BUN/Creat Ratio 8.5 - Low June Sodium 138 mEq/L 136-145 mEq/L - June 25, 2022 Potassium 4.3 mEq/L 3.5-5.1 mEq/L - June 25, 2022 Chloride 100 mEq/L 96-108 mEq/L - June 25, Bicarbonate 29 mEq/L 22-29 mEq/L - June 25, Creatinine, Serum 3.00 mg/dL 0.6-1.3 mg/dL High July 02, 2022 BUN/Creat Ratio 9.3 - Low June BUN 28 mg/dL 6-19 mg/dl High July 02 Bicarbonate 28 mEq/L 22-29 mEq/L - July 02 Potassium 4.0 mEq/L 3.5-5.1 mEq/L - July 02, 2022 Chloride 101 mEq/L 96-108 mEq/L - July 02, Sodium 140 mEq/L 136-145 mEq/L - July 02, 2022 Bicarbonate 27 mEq/L 22-29 mEq/L - July 09 Potassium 4.2 mEq/L 3.5-5.1 mEq/L - July 09, 2022 Chloride 102 mEq/L 96-108 mEq/L - July 09 BUN/Creat Ratio 9.1 08-07 Low June Sodium 141 mEq/L 136-145 mEq/L - July 09, 2022 Creatinine, Serum 2.97 mg/dL 0.6-1.3 mg/dL High July 09, 2022 BUN 27 mg/dL 6-19 mg/dl High July 09 BUN/Creat Ratio 9.8 08-07 Low June Creatinine, Serum 3.05 mg/dL 0.6-1.3 mg/dL High July 16, 2022 BUN 30 mg/dL 6-19 mg/dl High July 16 Bicarbonate 30 mEq/L 22-29 mEq/L - July 16 Chloride 100 mEq/L 96-108 mEq/L - July 16 Potassium 4.2 mEq/L 3.5-5.1 mEq/L - July 16, 2022 Sodium 140 mEq/L 136-145 mEq/L - July 16, 2022 HD Adequacy Result Type Result Value Relevant Reference Interpretation Date Range eKt/V 1.14 No Reference range Normal June 25, 2022 ([place]) provided spKt/V (Daugirdas 1.36 No Reference range [...] g/dL 3.5-5.2 g/dL - June 25, 2022 Infectious Diseases Result Type Result Value Relevant [...] Jugular IMMUNIZATIONS Vaccine Date Dose Route Status [id number], series June 18, 2022 40.0 mcg Intramuscul ar Completed 3 of 4 HEPLISAV-B April 25, 2022 20.0 mcg Intramuscular Completed TRANSPLANT WAITLIST STATUS No Information on Transplant Waitlist Status DIALYSIS TREATMENTS Conventional Hemodialysis Date Pre-Treatment Post-Treatment Duration BFR Dialysate Dialyzer Dialysis Meds Vitals Vitals (hr) (mL/min) Access Admin June Weight 73.00 Weight 71.50 03:00:00 360 3.0 K, 180nre Hemod ialysis-CV Catheter-Tunneled, Chest, Right Jugular Heparin Sodium (Porcine) 1,000 Units/mL Catheter Lock Arterial; 1600units,Arterial Red Port 2021 kg kg 2.25 Ca, Optiflux Hepar in Sodium (Porcine) 1,000 Units/mL Catheter Lock Venous; 1600units,Venous Blue Port 1.0 Mg, 100 Dextrose (G3231) Blood Pressure-sitting 140/78 mmHg Blood Pressure-sitting 10 2/62 mmHg Blood Pressure-standing 164/86 mmHg Blood Pressure-standing 122/68 mmHg Heart Rate 90 beats per Heart Rate 87 beats per minute minute Respiratory Rate 16 breaths per Respiratory Rate 16 breaths per minute minute Temperature 97.0 deg. F Temperature 96.0 deg. F June Weight 72.40 Weight 71.40 03:02:00 360 3.0 K, 180nre Hemod ialysis-CV Catheter-Tunneled, Chest, Right Jugular Heparin Sodium (Porcine) 1,000 Units/mL Catheter Lock Arterial; 1600units,Arterial Red Port 26, 2021 kg kg 2.25 Ca, Optiflux Hepar in Sodium (Porcine) 1,000 Units/mL Catheter Lock Venous; 1600units,Venous Blue Port 1.0 Mg, Iron Sucrose (Venofer); 50mg,Intravenous - push 100 Dextrose (G3231) Blood Pressure-sitting 130/66 mmHg Blood Pressure-sitting 14 7/84 mmHg Blood Pressure-standing 142/82 mmHg Blood Pressure-standing 121/75 mmHg Heart Rate 94 beats per Heart Rate 81 beats per minute minute Respiratory Rate 16 breaths per Respiratory Rate 16 breaths per minute minute Temperature 96.0 deg. F Temperature 97.0 deg. F June Weight 71.90 Weight 71.40 03:03:00 350 3.0 K, 180nre Hemod ialysis-CV Catheter-Tunneled, Chest, Right Jugular Heparin Sodium (Porcine) 1,000 Units/mL Catheter Lock Arterial; 1600units,Arterial Red Port 28, 2021 kg kg 2.25 Ca, Optiflux Hepar in Sodium (Porcine) 1,000 Units/mL Catheter Lock Venous; 1600units,Venous Blue Port 1.0 Mg, Iron Sucrose (Venofer); 100mg,Intravenous - push 100 Dextrose (G3231) Blood Pressure-sitting 153/85 mmHg Blood Pressure-sitting 14 9/81 mmHg Blood Pressure-standing 140/81 mmHg Blood Pressure-standing 137/86 mmHg Heart Rate 87 beats per Heart Rate 82 beats per minute minute Respiratory Rate 16 breaths per Respiratory Rate 16 breaths per minute minute Temperature 97.5 deg. F Temperature 98.0 deg. F
--- OUTSIDE RECORDS SUMMARY | 2022-07-17 13:52 | XMS_ITS | Encounter Summary ---
:1940 Author Organization [facility] Address [address] [place] [address] Care Team Providers Name Role Phone Unavailable Primary Care Provider Unavailable Encounter Details Date Type Department Care Team Description 04/23/2022 Orders Only [facility] f Denilson Quinones MD [address] [place] [address] [place], [place] [phone] (Wo rk) Social History Tobacco Use [...] and its performa nce characteristics determined by [facility]. It has not been cleared or approved by the FDA. The laboratory is regulated under CLIA a s qualified to perform high complexity testing. This test is used fo r clinical purposes. It should not be regarded as investigational or fo r research. Test performed at [facility], [address] [place] [address]. Telephone . [facility] Direct or: Henok Correa MD. Specimen (Source) Anatomical Collection Method Collection Time Re ceived Time Location / / Volume Laterality 04/23/2022 04/25/2022 7:04 PM CDT Narrative [facility] - 04/27/2022 Unless otherwise specified, test(s) performed at: [facility], [address] [place] [address], [place] [address] DRUM STRAIGHTENER: Raheem Malik M.D., Ph.D For any questions, [...] for the general public, refer to MMWR [facility] 2004/Vol.54 (No. 16); -, and [...] 04/26/2022 Unless otherwise specified, test(s) performed at: [facility], [address] [place] [address], [place] [address] DRUM STRAIGHTENER: Raheem Malik M.D., Ph.D For any questions, [...] 04/25/2022 Unless otherwise specified, test(s) performed at: [facility], [address] [place] [address], [place] [address] DRUM STRAIGHTENER: Raheem Malik M.D., Ph.D For any questions, [...] 04/25/2022 Unless otherwise specified, test(s) performed at: [facility], [address] [place] [address] gideon [facility] [place] [address] DRUM STRAIGHTENER: Raheem Malik M.D., Ph.D For any questions, [...] 04/25/2022 Unless otherwise specified, test(s) performed at: [facility], [address] [place] [address] [place] [address] DRUM STRAIGHTENER: Raheem Malik M.D., Ph.D For any questions, please call customer service at FREQUENCY:MONTHLY Resulting Agency Comment Specimen source: Serum Denilson oHlly MD LAB BLOOD ORDERABLES Performing Organization Address City/State/ZIP Code Phon e Number [facility] documented in this encounter Visit Diagnoses Not on filedocumented in this encounter
--- OUTSIDE RECORDS SUMMARY | 2022-07-17 13:52 | XMS_ITS | Clinical Summary ---
:1940 Author Organization [facility] Address [address] [place] [address] Care Team Providers Name Role Phone Clinic, [facility] Primary Care Provider [phone] Gallito Gonzalez MD Unavailable Allergies Active Allergy [...] aneurysm without rupture hours as needed for moderate to severe pain Additional Information Patient [...] Comments Blood Pressure 161/78 09/23/2021 10:34 AM [facility] Pulse 57 09/23/2021 10:34 AM [facility] Temperature 36.6 ??C (97.9 ??F) 11/09/2018 7:31 AM [facility] Respiratory Rate 16 09/23/2021 10:34 AM [facility] Oxygen Saturation 99% 09/23/2021 10:34 AM [facility] Inhaled Oxygen Concentration - - Weight 79.4 kg (175 lb) 09/23/2021 10:34 AM [facility] Height 167.6 cm (5' 6) 09/23/2021 10:34 AM [facility] Body Mass Index 28.25 09/23/2021 10:34 AM [facility] Plan of Treatment Health Maintenance Due Date [...] this topic Medical Devices Implanted Type Area Kiln Loader Device Shelf Model / Identifier Expiration Serial / Date Lot Graft Master Matrix 10 [id number] Bone/Tissue N/A: Back [employer] 04/17/2017 [id number] / Implanted: Qty: 1 on 11/29/2014 /Biologic / [id number] Medtronic Valiant Navion Thoracic Graft System (37mm X 37mm X 223mm X 20fr.) Graft N/A: Aorta [employer] 07/25/2020 [id number] / Implanted: Qty: 1 on 11/05/2018 by Juan Delcid MD at [facility] [id number] / Alessio Precut Contoured 70x5.5mm Metallic N/A: Back [employer] [id number] / Implanted: Qty: 2 on 11/29/2014 Hardware/An / chor NA Cervical Rods/Screws Angio-Seal Vip Vascular Closure Device Right: 08/18/2019 [id number] / Implanted: Qty: 1 on 11/05/2018 by Juan Delcid MD at [facility] Arterial / [id number] Description: Perclose Device sutured int o the right common femoral artery. Explanted Type Area Kiln Loader Device Shelf Model / Identifier Expiration Date Ser ial / Lot Pedicle Screws Metallic And Rods Hardware/Anch or Additional Health Concerns Infection Onset Date Last Indicated MRSAComment: Positive 02/17/11 and 09/22/12 11/05/2018 11/05/2018 Negatives 05/03/14 (HE), 12/01/14 (HE) Insurance Payer Benefit Plan / Subscriber ID Effective Phone Address T ype Group Dates MEDICARE MEDICARE FOR HB [id number] 2012-Prese [phone] ATTN CLAIMS Medicare SUPPLEMENT nt 40 [address] [place] [address] BCBS BCBS [place] [id number] 2012-Prese [phone] [address] [address] PPO BLUE nt 00 [place] [address] Advance Directives For more information, please contact: [phone] Latest Code Status on File Code Status Date Activated Date Inactivated Comments Full Code 11/15/2017 2:04 AM 11/15/2017 2:27 PM Full Code 05/12/2017 1:29 PM 11/15/2017 2:04 AM Full Code 05/05/2017 5:50 PM 05/12/2017 1:29 PM Care Teams Factory Maintenance Technician Relationship Specialty Start Date End Date [facility], [facility] PCP - General 05/12/[address] [place] [address] Gallito Gonzalez MD Assigned Heart and Vascular 09/29/21 [address] Provider [place] [address]
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
--- OUTSIDE RECORDS SUMMARY | 2022-07-17 13:52 | XMS_ITS | Encounter Summary ---
:1940 Author Organization [place] Address [facility] [place] [address] Care Team Providers Name Role Phone Clinic, [facility] Primary Care Provider [phone] Reason for Visit Diagnostic Imaging CT Scan (Routine) - Closed Specialty Diagnoses / Procedures Referred By Contact Refer red To Contact Diagnoses Thoracic aortic aneurysm without rupture Abdominal aortic aneurysm (AAA) without rupture Ramiro Loco MD Procedures CT Chest Abdomen Pelvis w/o Contrast CTA Chest Abdomen Pelvis w Contrast [address] [place] [address] Referral ID Status Reason Start Date Expiration Date Visits Requ ested Visits Authorized [id number] Closed 11/29/2019 11/28/2020 1 1 Encounter Details Date Type Department Care Team Description 08/08/2021 Hospital Encounter [facility] Ramiro Loco oracic aortic aneurysm without rupture (H); [facility] Gisela Garcia MD Abdominal aortic aneurysm (AAA) without rupture (H) [address] [place] [address] [phone] [place] [id number] Social History Tobacco Use Types Packs/Day Years [...] aneurysm without hours as needed for rupture moderate to severe pain sodium bicarbonate 650 [...] CT CHEST ABDOMEN PELVIS W/O CONTRAST LOCATION: [facility] DATE/TIME: 08/08/2021 4:20 PM INDICATION: history of [...] CHEST ABDOMEN PELVIS W/O CONTRA ST LOCATION: [facility] DATE/TIME: 08/08/2021 4:20 PM INDICATION: history of [...] City/State/ZIP Code Phon [place] [phone] Care Lab [address] 1st floor, Room 20B documented in this encounter Visit Diagnoses Diagnosis Thoracic aortic aneurysm without rupture Thoracic aneurysm without mention of rup ture Abdominal aortic aneurysm (AAA) without rupture documented in this encounter Additional Health Concerns Infection Onset Date Last Indicated Resolved Time MRSAComment: Positive 02/17/11 and 09/22/12 11/05/2018 019 Negatives 05/03/14 (HE), 12/01/14 (HE) documented as of this encounter Care Teams Washer Meat Relationship Specialty Start Date End Date Bandar, Kehinde Portillofield PCP - General 05/12/[address] [place] [address] documented as of this encounter
--- OUTSIDE RECORDS SUMMARY | 2022-07-17 13:52 | XMS_ITS | Encounter Summary ---
:1940 Author Organization [facility] Address [address] [place] [address] Care Team Providers Name Role Phone Unavailable Primary Care Provider Unavailable Encounter Details Date Type Department Care Team Description 06/13/2022 Orders Only [facility] O f Denilson Quinones MD [address] [place] [address] [place], [place] [phone] (Wo rk) Social History Tobacco Use [...] URINE CLEARANCE (06/13/2022) [facility] Time Signature Urea Nitrogen, 177 mg/dL APS [...] 06/14/2022 Unless otherwise specified, test(s) performed at: [facility], [address] [place] [address], [place] [address] CASTING ASSISTANT: Raheem aMlik M.D., Ph.D For any questions, please call customer service at FREQUENCY:OTHER Resulting Agency Comment Specimen source: Urine Denilson Holly MD LAB URINE ORDERABLES Performing Organization Address City/[facility] Phon e Number [facility]PS S[facility]RA [facility] (ABNORMAL) Spectrae Chemistry (06/13/2022) athologist Signature Creatinine 2.31 (H) 0.60 - 1.30 APS SPECTRA mg/dL [facility] Comment: Custom Exception Specimen (Source) Anatomical Collection Method Collection Time Re ceived Time Location / / Volume Laterality 06/13/2022 06/14/2022 2:50 AM CDT Resulting Agency Comment Specimen source: Serum Denilson Holly MD LAB BLOOD ORDERABLES Performing Organization Address [facility] Phon e Number [facility]RA [facility] [...] 06/14/2022 Unless otherwise specified, test(s) performed at: [facility], [address] [place] [address], [place] [address] CASTING ASSISTANT: Raheem Malik M.D., Ph.D For any questions, please call customer service at FREQUENCY:OTHER Resulting Agency Comment Specimen source: PD Fluid Denilson Holly MD LAB BLOOD ORDERABLES Performing Organization Address [facility] Phon e Number [facility]RA [facility] [...] 06/14/2022 Unless otherwise specified, test(s) performed at: [facility], [address] [place], [place] [address]ann [place] [place] [address] CASTING ASSISTANT: Raheem Malik M.D., Ph.D For any questions, please call customer service at FREQUENCY:OTHER Resulting Agency Comment Specimen source: PD Fluid Denilson Holly MD LAB BLOOD ORDERABLES Performing Organization Address [facility] Phon e Number [facility] documented in this encounter Visit Diagnoses Not on filedocumented in this encounter
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
--- OUTSIDE RECORDS SUMMARY | 2022-07-17 13:52 | XMS_ITS | Encounter Summary ---
:1940 Author Organization [facility] Address [address] [place] [address] Care Team Providers Name Role Phone Unavailable Primary Care Provider Unavailable Encounter Details Date Type Department Care Team Description 06/25/2022 Orders Only [facility] O f Denilson Quinones MD [address] [place] [address] [place], [place] [phone] (Wo rk) Social History Tobacco Use [...] 06/27/2022 Unless otherwise specified, test(s) performed at: [facility], [address] [place] [address], [place] [address] PREPARATION SUPERVISOR CANNING: Raheem Malik M.D., Ph.D For any questions, [...] 06/27/2022 Unless otherwise specified, test(s) performed at: [facility], [address] [place] [address] gideon [facility] [place] [address] PREPARATION SUPERVISOR CANNING: Raheem Malik M.D., Ph.D For any questions, [...] 06/27/2022 Unless otherwise specified, test(s) performed at: [facility], [address] [place] [address], [place] [address] PREPARATION SUPERVISOR CANNING: Raheem Malik M.D., Ph.D For any questions, please call customer service at FREQUENCY:MONTHLY Resulting Agency Comment Specimen source: Serum Denilson Holly MD LAB BLOOD ORDERABLES Performing Organization Address City/State/ZIP Code Phon e Number [facility] (ABNORMAL) HEMATOLOGY (06/25/2022) [facility] gist Method Time Signature WBC 4.15 [...] 06/27/2022 Unless otherwise specified, test(s) performed at: [facility], [address] [place] [address], [place] [address] PREPARATION SUPERVISOR CANNING: Raheem Malik M.D., Ph.D For any questions, please call customer service at FREQUENCY:MONTHLY Resulting Agency Comment Specimen source: Blood Denilson Holly MD LAB BLOOD ORDERABLES Performing Organization Address City/State/ZIP Code Phon e Number [facility] documented in this encounter Visit Diagnoses Not on filedocumented in this encounter
--- OUTSIDE RECORDS SUMMARY | 2022-07-17 13:52 | XMS_ITS | Encounter Summary ---
:1940 Author Organization [facility] Address [address] [place] [address] Care Team Providers Name Role Phone Unavailable Primary Care Provider Unavailable Encounter Details Date Type Department Care Team Description 06/04/2022 Orders Only [facility] O f Denilson Quinones MD [address] [place] [address] [place], [place] [phone] (Wo rk) Social History Tobacco Use [...] 06/05/2022 Unless otherwise specified, test(s) performed at: [facility], [address] [place] [address], [place] [address] OCCUPATIONAL THER: Raheem Malik M.D., Ph.D For any questions, please call customer service at FREQUENCY:OTHER Resulting Agency Comment Specimen source: Serum Denilson Holly MD LAB BLOOD ORDERABLES Performing Organization Address City/[facility] Phon e Number APS SPECTRA [...] 06/05/2022 Unless otherwise specified, test(s) performed at: [facility], [address] [place] [address], [place] [address] OCCUPATIONAL THER: Raheem Malik M.D., Ph.D For any questions, please call customer service at FREQUENCY:OTHER Resulting Agency Comment Specimen source: Blood Denilson Holly MD LAB BLOOD ORDERABLES Performing Organization Address City/[facility] Phon e Number [facility]RA [facility] documented in this encounter Visit Diagnoses Not on filedocumented in this encounter
--- OUTSIDE RECORDS SUMMARY | 2022-07-17 13:52 | XMS_ITS | Encounter Summary ---
:1940 Author Organization [facility] Address [address] [place] [address] Care Team Providers Name Role Phone Unavailable Primary Care Provider Unavailable Encounter Details Date Type Department Care Team Description 05/14/2022 Orders Only [facility] O f Denilson Quinones MD [address] [place] [address] [place], [place] [phone] (Wo rk) Social History Tobacco Use [...] 05/15/2022 Unless otherwise specified, test(s) performed at: [facility], [address] [place] [address] gideon [place] [address] FREELANCE ART DIRECTOR: Raheem Malik M.D., Ph.D For any [...] MD LAB BLOOD ORDERABLES Performing Organization Address City/[facility]/ZIP Code Phon e Number [facility]PS [facility]RA [facility] GFR (05/14/2022) P athologist Signature eGFR CKD-EPI CR 24 mL/min [facility] 2020 [facility] Comment: [facility] has implemented the recommended eGFR calculation that [...] 05/15/2022 Unless otherwise specified, test(s) performed at: [facility], [address] [place] [address] [place] [address] FREELANCE ART DIRECTOR: Raheem Malik M.D., Ph.D For any questions, please call customer service at FREQUENCY:OTHER Resulting Agency Comment Specimen source: Serum Denilson Holly MD LAB [id number] NSOLICITED RESULTS Performing Organization Address City/State/ZIP Code Phon e Number [facility] documented in this encounter Visit Diagnoses Not on filedocumented in this encounter
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
--- OUTSIDE RECORDS SUMMARY | 2022-07-17 13:52 | XMS_ITS | Encounter Summary ---
:1940 Author Organization [facility] Address [address] [place] [address] Care Team Providers Name Role Phone Unavailable Primary Care Provider Unavailable Encounter Details Date Type Department Care Team Description 05/19/2022 Orders Only [facility] O f Denilson Quinones MD [address] [place] [address] [place], [place] [phone] (Wo rk) Social History Tobacco Use [...] 24 mL/min APS SPECTRA 2020 [facility] Comment: [email or web address] has implemented the recommended eGFR calculation that [...] 05/20/2022 Unless otherwise specified, test(s) performed at: [email or web address], [address] [facility] [place] [address] CUTTER HEAD SHARPENER: Raheem Malik M.D., Ph.D For any questions, please call customer service at FREQUENCY:OTHER Resulting Agency Comment Specimen source: Serum Denilson Holly MD LAB [id number] NSOLICITED RESULTS Performing Organization Address City/[facility] Phon e Number APS SPECTRA [...] 05/20/2022 Unless otherwise specified, test(s) performed at: [facility], [address] [facility] [place] [address] CUTTER HEAD SHARPENER: Raheem Malik M.D., Ph.D For any questions, please call customer service at FREQUENCY:OTHER Resulting Agency Comment Specimen source: PD Fluid Denilson Holly MD LAB BLOOD ORDERABLES Performing Organization Address City/[facility] Phon e Number APS SPECTRA [facility] documented in this encounter Visit Diagnoses Not on filedocumented in this encounter
--- OUTSIDE RECORDS SUMMARY | 2022-07-17 13:52 | XMS_ITS | Encounter Summary ---
:1940 Author Organization [facility] Address [address] [place] [address] Care Team Providers Name Role Phone Unavailable Primary Care Provider Unavailable Encounter Details Date Type Department Care Team Description 05/07/2022 Orders Only [facility] O f Denilson Quinones MD [phone] [place] [address] [place], [place] [phone] (Wo rk) Social History Tobacco Use [...] MD LAB BLOOD ORDERABLES Performing Organization Address City/[facility] Code Phon e Number APS SPECTRA [facility] GFR (05/07/2022) P athologist Signature eGFR CKD-EPI CR 30 mL/min APS SPECTRA 2020 [facility] Comment: [employer] has implemented the recommended eGFR calculation that [...] 05/08/2022 Unless otherwise specified, test(s) performed at: [employer], [address] [place] [address], [place] [address] TRAINING FACILITATOR: Raheem Malik M.D., Ph.D For any questions, please call customer service at FREQUENCY:OTHER Resulting Agency Comment Specimen source: Serum Denilson Holly MD LAB [id number] NSOLICITED RESULTS Performing Organization Address City/[facility] Code Phon e Number APS SPECTRA [...] 05/08/2022 Unless otherwise specified, test(s) performed at: [facility], [address] [place] [address], [place] [address] TRAINING FACILITATOR: Raheem Malik M.D., Ph.D For any questions, please call customer service at FREQUENCY:OTHER Resulting Agency Comment Specimen source: Blood Denilson Holly MD LAB BLOOD ORDERABLES Performing Organization Address City/State/ZIP Code Phon e Number APS SPECTRA [facility] documented in this encounter Visit Diagnoses Not on filedocumented in this encounter
--- OUTSIDE RECORDS SUMMARY | 2022-07-17 13:52 | XMS_ITS | Encounter Summary ---
:1940 Author Organization [facility] Address [address] [place] [address] Care Team Providers Name Role Phone Unavailable Primary Care Provider Unavailable Encounter Details Date Type Department Care Team Description 05/28/2022 Orders Only [facility] O f Denilson Quinones MD [phone] [place] [address] [place], [place] [phone] (Wo rk) Social History Tobacco Use [...] MD LAB BLOOD ORDERABLES Performing Organization Address City/[facility] Code Phon e Number APS SPECTRA [facility] GFR (05/28/2022) P athologist Signature eGFR CKD-EPI CR 30 mL/min APS SPECTRA 2020 [facility] Comment: [employer] has implemented the recommended eGFR calculation that [...] 05/29/2022 Unless otherwise specified, test(s) performed at: [employer], [address] [place] [address], [place] [address] CYBER OPS PLANNER: Raheem aMlik M.D., Ph.D For any questions, please call customer service at FREQUENCY:OTHER Resulting Agency Comment Specimen source: Serum Denilson Holly MD LAB [id number] NSOLICITED RESULTS Performing Organization Address City/[facility] Code Phon e Number APS [...] 05/29/2022 Unless otherwise specified, test(s) performed at: [facility], [address] [place] [address], [place] [address] CYBER OPS PLANNER: Raheem Malik M.D., Ph.D For any questions, please call customer service at FREQUENCY:OTHER Resulting Agency Comment Specimen source: Blood Denilson Holly MD LAB BLOOD ORDERABLES Performing Organization Address City/State/ZIP Code Phon e Number APS SPECTRA [facility] documented in this encounter Visit Diagnoses Not on filedocumented in this encounter
--- OUTSIDE RECORDS SUMMARY | 2022-07-17 13:52 | XMS_ITS | Encounter Summary ---
:1940 Author Organization [facility] Address [address] [place] [address] Care Team Providers Name Role Phone Unavailable Primary Care Provider Unavailable Encounter Details Date Type Department Care Team Description 05/23/2022 Orders Only [facility] O f Denilson Quinones MD [phone] [place] [address] [place], [place] [phone] (Wo rk) Social History Tobacco Use [...] 05/26/2022 Unless otherwise specified, test(s) performed at: [facility], [address] [place] [address], [place] [address] ADJUNCT ART HISTORY INSTRUCTOR: Raheem Malik M.D., Ph.D For any questions, please call customer service at FREQUENCY:OTHER Resulting Agency Comment Specimen source: Urine Denilson Holly MD LAB URINE ORDERABLES Performing Organization Address [facility] Phon e Number APS SPECTRA [facility] PATIENT INFORMATION (05/23/2022) athologist [facility] Patient BSA 1.75 sq. M. APS SPECTRA [facility] Comment: Normalized values are calculated using t he patient's actual BSA and normalized to the average BSA of 1.73m2. Specimen (Source) Anatomical Collection Method Collection Time Re ceived Time Location / / Volume Laterality 05/23/2022 05/26/2022 12:2 5 PM CDT Narrative APS SPECTRA [facility] - 05/26/2022 Unless otherwise specified, test(s) performed at: [facility], [address] [place] [address], [place] [address] ADJUNCT ART HISTORY INSTRUCTOR: Raheem Malik M.D., Ph.D For any questions, please call customer service at FREQUENCY:OTHER Resulting Agency Comment Specimen source: PD Fluid Denilson Holly MD LAB BLOOD ORDERABLES Performing Organization Address City/[facility] Phon e Number APS SPECTRA [facility] [...] 27 mL/min APS SPECTRA 2020 [facility] Comment: [employer] has implemented the recommended eGFR calculation that [...] 05/26/2022 Unless otherwise specified, test(s) performed at: [facility], [address] [place] [address], [place] [address] ADJUNCT ART HISTORY INSTRUCTOR: Raheem Malik M.D., Ph.D For any questions, please call customer service at FREQUENCY:OTHER Resulting Agency Comment Specimen source: Serum Denilson Holly MD LAB [id number] NSOLICITED RESULTS Performing Organization Address City/State/ZIP Code [...] 05/26/2022 Unless otherwise specified, test(s) performed at: [facility], [address] [place] [address], [place] [address] ADJUNCT ART HISTORY INSTRUCTOR: Raheem Malik M.D., Ph.D For any questions, please call customer service at FREQUENCY:OTHER Resulting Agency Comment Specimen source: PD Fluid Denilson Holly MD LAB BLOOD ORDERABLES Performing Organization Address City/State/ZIP Code Phon e Number APS SPECTRA [facility] documented in this encounter Visit Diagnoses Not on filedocumented in this encounter
--- OUTSIDE RECORDS SUMMARY | 2022-07-17 13:52 | XMS_ITS | Encounter Summary ---
:1940 Author Organization [facility] Address [address] [place] [address] Care Team Providers Name Role Phone Unavailable Primary Care Provider Unavailable Encounter Details Date Type Department Care Team Description 07/02/2022 Treatment [facility] O f Denilson Quinones MD [address] [place], [place] [phone] (Wo rk) Social History Tobacco Use Types Packs/Day Years Used Date Smoking Tobacco: Never Assessed Sex Assigned at Date Recorded Not on file documented as of this encounter Miscellaneous Notes Dialysis Note - Denilson Holly MD - 07/02/2022 1:41 PM CDT Date: Jul 02, 2022 Patient Name: Speedy Hendricks : 1940 Chart #: [id number] Sex: M MAINTENANCE TRUCK DRIVER: Denilson Holly MD LOCATION: [place] [phone] SCHEDULE: M-W-F 2nd Shift Chief Complaint: Acute kidney injury. The patient complains of the following - 07/02: He remains hesitant about access but ok if [place] [facility] [place] discussing again with him and both [...] HD, but still requiring HD. Transferred from [place] rehab to [facility] here, hoping to [...] Hx of above, complex co-morbidities, hospitalized in [place] for AAA rupture while on boat -> TEVAR extension on 01/03/22 -> multiple complications including ARF requiring CRRT/HD, staph pneumonia, chronic resp failure with long mech vent/trach (trach out), R hydropneumothorax, DVT, a-fih, UGI bleed, DIC, critical illness myopathy, sepsis, and dysphagia (had feeding tube, now removed). Went to rehab, transferred back to [place] to [facility] for ongoing rehab closer to home. [facility] [place] His daughter Raquel is ICU/INSTRUCTIONAL LEADER ([employer] currently) and is very involved. [...] - Tunneled AV[place] [facility] [place] Anemia: HEMOGLOBIN (G/DL) IN BLOOD g/dL 11.1 [...]
--- OUTSIDE RECORDS SUMMARY | 2022-07-17 13:52 | XMS_ITS | Encounter Summary ---
:1940 Author Organization [facility] Address [address] [place] [address] Care Team Providers Name Role Phone Clinic, [facility] Primary Care Provider [phone] Encounter Details Date Type Department Care Team [...] documented as of this encounter Care Teams Electric Solderer Relationship Specialty Start Date End Date [facility] P[facility] - General 05/12/17 [address] [place] [phone] documented as of this encounter
--- OUTSIDE RECORDS SUMMARY | 2022-07-17 13:52 | XMS_ITS | Encounter Summary ---
:1940 Author Organization [facility] Address [address] [place] [address] Care Team Providers Name Role Phone Unavailable Primary Care Provider Unavailable Encounter Details Date Type Department Care Team Description 04/16/2022 Orders Only [facility] O f Denilson Quinones MD [address] [place] [address] [place], [place] [phone] (Wo rk) Social History Tobacco Use [...] and its performa nce characteristics determined by [facility] It has not been cleared or approved [...] 04/17/2022 Unless otherwise specified, test(s) performed at: [facility] [address] [place] [address] DISTRICT SUPERVISOR: Henok Correa M.D. For any questions, please call customer service at FREQUENCY:MONTHLY Resulting Agency Comment Specimen source: Serum Denilson Holly MD LAB BLOOD ORDERABLES Performing Organization Address City/[facility] Code Phon e Number APS SPECTRA [facility] [...] above test result was obtained using Siemens CallistoTVaur XP chemiluminescent method. Results obtaine d with different assay methods or kits cannot be used interchangeably. Specimen (Source) Anatomical Collection Method Collection Time Re ceived Time Location / / Volume Laterality 04/16/2022 04/17/2022 9:14 AM CDT Narrative APS SPECTRA [facility] - 04/17/2022 Unless otherwise specified, test(s) performed at: [facility] [address] [place] [address] DISTRICT SUPERVISOR: Henok Correa M.D. For any questions, please call customer service at FREQUENCY:MONTHLY Resulting Agency Comment Specimen source: Serum Denilson Holly MD LAB BLOOD ORDERABLES Performing Organization Address City/[facility] Code Phon e Number APS SPECTRA [facility] (ABNORMAL) Spectrae Chemistry (04/16/2022) P athologist Signature PTH 108 (H) 16 - 80 APS SPECTRA pg/mL [facility] Specimen (Source) Anatomical Collection Method Collection Time Re ceived Time Location / / Volume Laterality 04/16/2022 04/17/2022 9:16 AM CDT Narrative APS SPECTRA [facility] - 04/17/2022 Unless otherwise specified, test(s) performed at: [facility] [address] [place] [address] DISTRICT SUPERVISOR: Henok Correa M.D. For any questions, please call customer service at FREQUENCY:MONTHLY Resulting Agency Comment Specimen source: Plasma Denilson Holly MD LAB BLOOD ORDERABLES Performing Organization Address City/[facility] Code Phon e Number APS SPECTRA [facility] HD KINETICS (04/16/2022) P athologist Signature % Urea 69 65 - 80 % APS SPECTRA Reduction [facility] Specimen (Source) Anatomical Collection Method Collection Time Re ceived Time Location / / Volume Laterality 04/16/2022 04/17/2022 9:14 AM CDT Resulting Agency Comment Specimen source: Serum Denilson Holly MD LAB BLOOD ORDERABLES Performing Organization Address City/[facility]/ZIP Code Phon e Number APS SPECTRA [facility] POST CHEMISTRY (04/16/2022) P athologist Signature BUN Post 18 6 - 19 APS SPECTRA Dialysis mg/dL [facility] Specimen (Source) Anatomical Collection Method Collection Time Re ceived Time Location / / Volume Laterality 04/16/2022 04/17/2022 9:08 AM CDT Narrative APS SPECTRA [facility] - 04/17/2022 Unless otherwise specified, test(s) performed at: [facility] [address] [place] [address] DISTRICT SUPERVISOR: Henok Correa M.D. For any questions, please [...] 04/17/2022 Unless otherwise specified, test(s) performed at: [facility] [address] [place], [place] [id number] DISTRICT SUPERVISOR: Henok Correa M.D. For any questions, please call customer service at FREQUENCY:MONTHLY Resulting Agency Comment Specimen source: Serum Denilson Holly MD LAB BLOOD ORDERABLES Performing Organization Address City/State/ZIP Code Phon e Number APS SPECTRA [facility] GFR (04/16/2022) P athologist Signature eGFR CKD-EPI CR 28 mL/min APS SPECTRA 2020 [facility] Comment: [employer] has implemented the recommended eGFR calculation that [...] 04/17/2022 Unless otherwise specified, test(s) performed at: [facility] [address] [place] [address] DISTRICT SUPERVISOR: Henok Correa M.D. For any questions, please call customer service at FREQUENCY:MONTHLY Resulting Agency Comment Specimen source: Serum Denilson Holly MD LAB [id number] NSOLICITED RESULTS Performing Organization Address City/State/ZIP Code Phon e Number APS SPECTRA [facility] (ABNORMAL) HEMATOLOGY (04/16/2022) [facility] gist Method Time Signature WBC 7.73 [...] 04/17/2022 Unless otherwise specified, test(s) performed at: [facility] [address] [place] [address] DISTRICT SUPERVISOR: Henok Correa M.D. For any questions, please call customer service at FREQUENCY:MONTHLY Resulting Agency Comment Specimen source: Blood Denilson Holly MD LAB BLOOD ORDERABLES Performing Organization Address City/State/ZIP Code Phon e Number APS SPECTRA [facility] documented in this encounter Visit Diagnoses Not on filedocumented in this encounter
--- OUTSIDE RECORDS SUMMARY | 2022-07-17 13:52 | XMS_ITS | Encounter Summary ---
:1940 Author Organization [facility] Address [address] [place] [address] Care Team Providers Name Role Phone Unavailable Primary Care Provider Unavailable Encounter Details Date Type Department Care Team Description 06/18/2022 Orders Only [facility] O f Denilson Quinones MD [address] [place] [address] [place], [place] [phone] (Wo rk) Social History Tobacco Use [...] 06/19/2022 Unless otherwise specified, test(s) performed at: [facility], [address] [place] [address], [place] [address] COMMUNITY DEVELOPMENT DIRECTOR: Raheem Malik M.D., Ph.D For any [...] 06/19/2022 Unless otherwise specified, test(s) performed at: [facility], [address] [place], [place] [address]ann [facility] [place] [address] COMMUNITY DEVELOPMENT DIRECTOR: Raheem Malik M.D., Ph.D For any questions, please call customer service at FREQUENCY:OTHER Resulting Agency Comment Specimen source: Serum Denilson Holly MD LAB BLOOD ORDERABLES Performing Organization Address City/State/[facility] Code Phon e Number APS SPECTRA [facility] documented in this encounter Visit Diagnoses Not on filedocumented in this encounter
--- OUTSIDE RECORDS SUMMARY | 2022-07-17 13:52 | XMS_ITS | Encounter Summary ---
:1940 Author Organization [facility] Address [facility] [place] [address] Care Team Providers Name Role Phone Clinic, [facility] Primary Care Provider [phone] Gallito Gonzalez MD Unavailable Encounter Details Date Type Department Care Team Description 11/04/[address] [facility] Vascular Gallito Gonzalez, Clinic Tram [facility] [address] [place] [address] [place] [address] [phone] (Wo rk) Social History Tobacco Use Types [...] Gonzalez and pt notified. SHASTA Sotomayor, JOSE [facility] Office: [phone] Telephone Encounter - Ro Taylor RN - 11/26/2021 1:[address] Gonzalez, Dr. Orosco was notified. Awaiting further direction from Dr. Gonzalez upon their discussion and to ensure pts daughter is notified. SHASTA Sotomayor, JOSE [facility] Office: [phone] ILE DESIGNS SALES REPRESENTATIVE Telephone Encounter - Ro Taylor RN - 11/04/2021 4:56 PM CST JAMES 09/23/[address] Gonzalez I will get in touch with the patient's daughter after I discussed the case with Dr. Orosco Routing to Dr. Gonzalez for update on this/plan and verification of pts daughter contacted. SHASTA Sotmoayor, JOSE [facility] Office: [phone] ILE DESIGNS SALES REPRESENTATIVE documented in this encounter Plan of Treatment Not on filedocumented as of this encounter Visit Diagnoses Not on filedocumented in this encounter Additional Health Concerns Infection Onset Date Last Indicated Resolved Time MRSAComment: Positive 02/17/11 and 09/22/12 11/05/2018 019 Negatives 05/03/14 (HE), 12/01/14 (HE) documented as of this encounter Care Teams Hand Hide Stretcher Relationship Specialty Start Date End Date Clinic, [facility] PCP - General 05/12/17 [address] [place] [address] Gallito Gonzalez MD Assigned Heart and Vascular 09/29/21 [address] Provider [place] [address] documented as of this encounter
--- OUTSIDE RECORDS SUMMARY | 2022-07-17 13:52 | XMS_ITS | Encounter Summary ---
:1940 Author Organization [facility] Address [address] [place] [address] Care Team Providers Name Role Phone Unavailable Primary Care Provider Unavailable Encounter Details Date Type Department Care Team Description 04/16/2022 Office Communication [facility] [place] MD [address] [place] [phone] Social History Tobacco Use [...]
--- OUTSIDE RECORDS SUMMARY | 2022-07-17 13:52 | XMS_ITS | Encounter Summary ---
:1940 Author Organization [facility] Address [address] [place] [address] Care Team Providers Name Role Phone Clinic, [facility] Primary Care Provider [phone] Encounter Details Date Type Department Care Team [...] with No / Unsure 09/23/2021 10:26 AM BOX STRAPPER someone who was confirmed or suspected to have Coronavirus / COVID-19? documented as of this encounter Plan of Treatment Not on filedocumented as of this encounter Visit Diagnoses Not on filedocumented in this encounter Additional Health Concerns Infection Onset Date Last Indicated Resolved Time MRSAComment: Positive 02/17/11 and 09/22/12 11/05/2018 019 Negatives 05/03/14 (HE), 12/01/14 (HE) documented as of this encounter Care Teams Coal Pulverizing Operator Relationship Specialty Start Date End Date Clinic, [facility] PCP - General 05/12/17 [address] [place] [phone] documented as of this encounter
--- OUTSIDE RECORDS SUMMARY | 2022-07-17 13:52 | XMS_ITS | Encounter Summary ---
:1940 Author Organization [facility] Address [address] [place] [address] Care Team Providers Name Role Phone Unavailable Primary Care Provider Unavailable Encounter Details Date Type Department Care Team Description 05/02/2022 Orders Only [facility] O f Denilson Quinones MD [address] [place] [address] [place], [place] [phone] (Wo rk) Social History Tobacco Use [...] 05/03/2022 Unless otherwise specified, test(s) performed at: [facility], [address] [place] [address] gideon [facility] [place] [address] WOOL SACKER: Raheem Malik M.D., Ph.D For any questions, [...] Performing Organization Address City/[facility]/ZIP Code Phon e Number APS SPECTRA [facility] GFR (05/02/2022) P athologist Signature eGFR CKD-EPI CR 26 mL/min APS SPECTRA 2020 [facility] Comment: [facility] has implemented the recommended eGFR calculation that [...] 05/03/2022 Unless otherwise specified, test(s) performed at: [facility], [address] [place] [address] gideon [facility] [place] [address] WOOL SACKER: Raheem Malik M.D., Ph.D For any questions, please call customer service at FREQUENCY:OTHER Resulting Agency Comment Specimen source: Serum Denilson Holly MD LAB [id number] NSOLICITED RESULTS Performing Organization Address City/State/ZIP Code Phon e Number APS SPECTRA [facility] documented in this encounter Visit Diagnoses Not on filedocumented in this encounter
--- OUTSIDE RECORDS SUMMARY | 2022-07-17 13:52 | XMS_ITS | Encounter Summary ---
:1940 Author Organization [place] Address [address] [place] [address] Care Team Providers Name Role Phone Clinic, [facility] Primary Care Provider [phone] Reason for Visit Reason Comments RECHECK *PREV Dr Lewis, Dr Brown & Dr Loco Pt - CTA done 08/08/21- History of thoracoabdominal aortic aneu rysm; TEVAR 11/05/18; 6 mo f/u to 11/09/[address] Loco *jj Pt is sti ll having back pain *LMB 08/19/21 - R/S from 08/29/21 *B 08/28/21 Encounter Details Date Type Department Care Team Description 09/23/2021 Office Visit [facility] Gallito Gonzaelz [place] bdominal aortic Vascular Clinic MD Eliel aneurysm (TAAA) without Jean [address] rupture (H) (Primary Dx) [address] [place] [address] [place] [address] Social History Tobacco Use [...] with No / Unsure 09/23/2021 10:26 AM TMH TEACHER someone who was confirmed or suspected to have Coronavirus / COVID-19? documented as of this encounter Last Filed Vital Signs Vital Sign Reading Time Taken Comments Blood Pressure 161/78 09/23/2021 10:34 AM TMH TEACHER Pulse 57 09/23/2021 10:34 AM TMH TEACHER Temperature - - Respiratory Rate 16 09/23/2021 10:34 AM TMH TEACHER Oxygen Saturation 99% 09/23/2021 10:34 AM TMH TEACHER Inhaled Oxygen Concentration - - Weight 79.4 kg (175 lb) 09/23/2021 10:34 AM TMH TEACHER Height 167.6 cm (5' 6) 09/23/2021 10:34 AM TMH TEACHER Body Mass Index 28.25 09/23/2021 10:34 AM TMH TEACHER documented in this encounter Progress Notes Von Landeros CMA - 09/23/2021 10:30 AM CST [facility] Patient is here for [...] and agency name: No Von Landeros CMA TEACHER Gallito Gonzalez MD - 09/23/2021 10:30 [...] I discussed the case with Dr. Orosco. 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
--- OUTSIDE RECORDS SUMMARY | 2022-07-17 13:52 | XMS_ITS | Encounter Summary ---
:1940 Author Organization [facility] Address [address] [place] [address] Care Team Providers Name Role Phone Unavailable Primary Care Provider Unavailable Encounter Details Date Type Department Care Team Description 05/21/2022 Orders Only [facility] Denilson Quinones MD [address] [place] [address] [place], [place] [phone] [address] (Wo rk) Social History Tobacco Use [...] 05/27/2022 Unless otherwise specified, test(s) performed at: [facility], [address] [place] [address], [place] [address] SR. SOCIAL MEDIA & MOBILE MANAGER: Raheem Malik M.D., Ph.D For any [...] 24 mL/min APS SPECTRA 2020 [facility] Comment: [facility] has implemented the recommended eGFR calculation that [...] 05/27/2022 Unless otherwise specified, test(s) performed at: [facility], [facility] [place] [address] SR. SOCIAL MEDIA & MOBILE MANAGER: Raheem Malik M.D., Ph.D For any questions, please call customer service at FREQUENCY:MONTHLY Resulting Agency Comment Specimen source: Serum Denilson Holly MD LAB [id number] NSOLICITED RESULTS Performing Organization Address City/State/[facility] Code Phon e Number APS SPECTRA [facility] [...] 05/22/2022 Unless otherwise specified, test(s) performed at: [facility], [address] [place] [address] [place] [address] SR. SOCIAL MEDIA & MOBILE MANAGER: Raheem Malik M.D., Ph.D For any [...] 05/22/2022 Unless otherwise specified, test(s) performed at: [facility], [address] [place] [address], [place] [address] SR. SOCIAL MEDIA & MOBILE MANAGER: Raheem Malik M.D., Ph.D For any [...] 05/22/2022 Unless otherwise specified, test(s) performed at: [facility], [address] [place] [address] gideon Formerly [facility], [place] [address] SR. SOCIAL MEDIA & MOBILE MANAGER: Raheem Malik M.D., Ph.D For any questions, please call customer service at FREQUENCY:MONTHLY Resulting Agency Comment Specimen source: Blood Denilson Holly MD LAB BLOOD ORDERABLES Performing Organization Address City/State/ZIP Code Phon e Number APS SPECTRA [facility] documented in this encounter Visit Diagnoses Not on filedocumented in this encounter
--- OUTSIDE RECORDS SUMMARY | 2022-07-17 13:53 | XMS_ITS | Encounter Summary ---
:1940 Author Organization [place] Address [address] [place] [address] Care Team Providers Name Role Phone [facility] Primary Care Provider [phone] Encounter Details Date Type Department Care Team [...] documented as of this encounter Care Teams Race Relations Adviser Relationship Specialty Start Date End Date [facility] PCP - General 05/12/[address] [place] [address] documented as of this encounter
--- OUTSIDE RECORDS SUMMARY | 2022-07-17 13:53 | XMS_ITS | Encounter Summary ---
:1940 Author Organization [place] Address [address] [place] [address] Care Team Providers Name Role Phone Clinic, [facility] Primary Care Provider [phone] Reason for Visit Reason Comments Skin Check FSE Encounter Details Date Type Department Care Team Description 06/02/2019 Office Visit [facility] oJn White of skin cancer (Primary Dx); Clinic Lennox MD Aubrey Lentigo; [place] [address] Seborrheic keratosis; [address] [address] Angioma of skin; [place], [place] [phone] Dermal nevus ; [phone] (Work) Basal cell carcinoma (BCC) of anterior c hest; [phone] Basal wilton l carcinoma (BCC) of sideburn [...] CDT Wound Care Instructions FOR SUPERFICIAL WOUNDS [facility] [phone] [facility] [phone] AFTER 24 HOURS YOU SHOULD REMOVE THE [...] file Gets together: Not on file Attends islam service: Not on file Active member of club or organization: Not on file Attends meetings of clubs or organizations: Not on file Relationship status: Not on file ??? Intimate partner violence: Fear of current or ex partner: Not on file Emotionally abused: Not on file Physically abused: Not on file Forced sexual activity: Not on file Other Topics Concern ??? Parent/sibling w/ CABG, [place] or angioplasty before 65F 55M? Not Asked [...] 87.5 kg (193 lb). . JOSE Lockwood-BSN-N [facility] [phone] documented in this encounter Plan of Treatment [...] documented as of this encounter Care Teams Operative Supervisor Relationship Specialty Start Date End Date Clinic, [facility] PCP - General 05/12/[address] [place] [address] documented as of this encounter
--- OUTSIDE RECORDS SUMMARY | 2022-07-17 13:53 | XMS_ITS | Encounter Summary ---
:1940 Author Organization [place] Address [address] [place] [address] Care Team Providers Name Role Phone Clinic, [facility] Primary Care Provider [phone] Encounter Details Date Type Department Care Team Description 12/08/2019 Orders Only [facility] Tho racic aortic aneurysm [facility] without rupture (H) [address] [place] [address] Social History Tobacco Use [...] AM Thoracic aortic Resul ts for this OPERATIONS MANAGER STATION aneurysm without procedure a re in the rupture (H) results section . documented in this encounter Results (ABNORMAL) Creatinine (12/08/2019 10:59 AM OPERATIONS MANAGER STATION) Analysis Performed At Patho logist Time Signature Creatinine 1.36 (H) 0.66 - 12/09/2019 [place] 1.25 mg/dL 9:03 AM [facility] GFR Estimate 50 (L) >60 12/09/2019 [place] mL/min/{1. 9:03 AM [facility] 73_m2} [facility] Comment: Non GFR Calc Starting 10/05/2018, serum creatinine ba sed estimated GFR (eGFR) will be calculated using the Chronic Kidney Dise [facility] Epidemiology Collaboration (CKD-EPI) equation. GFR Estimate If 58 (L) >60 mL/min/{1.73_m2} 12/09/2019 9:03 AM [facility] Black [facility] Comment: GFR Calc Starting 10/05/2018, serum creatinine ba sed estimated GFR (eGFR) will be calculated using the Chronic Kidney Dise [facility] Epidemiology Collaboration (CKD-EPI) equation. Specimen Anatomical Collection Method Collection Time Receive d Time (Source) Location / / Volume Laterality Blood specimen 12/08/2019 10:59 0 (specimen) AM OPERATIONS MANAGER STATION 11:04 AM OPERATIONS MANAGER STATION Ramiro Loco MD LAB - BLOOD ORDERABLES Performing Organization Address City/State/ZIP Code Phon e Number [facility] [address] [place] [address] documented in this encounter Visit Diagnoses Diagnosis Thoracic aortic aneurysm without rupture Thoracic aneurysm without mention of rup ture documented in this encounter Additional Health Concerns Infection Onset Date Last Indicated Resolved Time MRSAComment: Positive 02/17/11 and 09/22/12 11/05/2018 019 Negatives 05/03/14 (HE), 12/01/14 (HE) documented as of this encounter Care Teams Jewelry Inspector Relationship Specialty Start Date End Date Kehinde Portillo PCP - General 05/12/[address] [place] [address] documented as of this encounter
--- OUTSIDE RECORDS SUMMARY | 2022-07-17 13:53 | XMS_ITS | Encounter Summary ---
:1940 Author Organization [place] Address [address] [facility] [place] [address] Care Team Providers Name Role Phone [facility] Primary Care Provider [phone] Reason for Referral Diagnostic Imaging CT Scan (Routine) - Closed Specialty Diagnoses / Procedures Referred By Contact Refer red To Contact Radiology. 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 Butch Brown MD Rh Ct Scan [facility] Procedures CT Chest Abdomen Pelvis w/o Contrast [address] [place] [address] [place] [address] [place] [address] Phone: Fax: Referral ID Status Reason Start Date Expiration Date Visits Requ ested Visits Authorized [id number] Closed 05/17/2019 05/16/2020 1 1 Encounter Details Date Type Department Care Team Description 05/17/2019 [facility] Only [facility] Butch Brown Abdominal aortic Vascular Clinic Félix Jay MD aneurysm (AAA) without [address] ru pture (H) (Primary [address] Dx) [place] [address] [place] [id number] Social History Tobacco Use Types Packs/Day Years [...] Abdomen Pelvis w/o Contrast (11/09/2019 11:25 AM DAIRY HUSBANDMAN) Anatomical Region Laterality Modality Abdomen/Pelvis, SUBRAD CT BODY, UMP CT CHEST, UMP CT Computed Tomography ABDOMEN PELVIS, Chest, RAD CT Specimen (Source) Anatomical Location Collection Method / Collectio n Time Received Time / Laterality Volume Impressions 11/09/2019 3:17 PM DAIRY HUSBANDMAN IMPRESSION: 1. 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 2. The aneurysm sac in the distal thorac ic aorta and an infrarenal abdominal aortic aneurysm have increased slightly in size since the previous exam. 3. Moderate age-indeterminate anterior c ompression of the T7 vertebral body is new since the previous exam. JON NICHOLS MD Narrative 11/09/2019 3:[address] CHEST, ABDOMEN AND PELVIS WITHOUT CONTRAST [...] Diagnosis Abdominal aortic aneurysm (AAA) without rupture - Primary Abdominal aortic aneurysm (AAA) without rupture documented in this encounter Additional Health Concerns Infection Onset Date Last Indicated Resolved Time MRSAComment: Positive 02/17/11 and 09/22/12 11/05/2018 019 Negatives 05/03/14 (HE), 12/01/14 (HE) documented as of this encounter Care Teams Infection Control Manager Relationship Specialty Start Date End Date [facility] PCP - General 05/12/[address] [place] [address] documented as of this encounter
--- OUTSIDE RECORDS SUMMARY | 2022-07-17 13:53 | XMS_ITS | Encounter Summary ---
:1940 Author Organization [place] Address [address] [facility] [place] [address] Care Team Providers Name Role Phone Clinic, [facility] Primary Care Provider [phone] Reason for Visit Reason Onset Date Comments Clinic Care Coordination - Follow-up 11/15/2019 Encounter Details Date Type Department Care Team Description 11/15/2019 Telephone [facility] Ramiro Loco Cli [facility] Vascular Clinic Félix juarez MD Coordination - [address] Follow-up [address] [place] [address] [place] [phone] (Wo rk) Social History Tobacco Use Types [...] 9:12 AM CST Order entered. SHASTA Winkler, RN-[facility] ORGANIZATIONAL DEVELOPMENT Telephone Encounter - Ro Taylor RN - 11/25/2019 2:34 PM CST Pt called back, left vm to discuss lab request (creat/gfr). I called pt back, pt reports labs [facility]19 [facility]. I explained to pt he does not need another lab draw and we will work with these lab results. Pt notes understanding. Routing to Dr. Loco's nurse Leatha for placement of imaging order (to be done in 6 months) [address] Loco's request. SHASTA Sotomayor, JOSE [facility] ORGANIZATIONAL DEVELOPMENT Telephone Encounter - Ro Taylor RN - 11/25/2019 1:49 PM CST Pt called back , left vm to discuss labs ordered by Dr. Loco. SHASTA Sotomayor, JOSE [facility] ORGANIZATIONAL DEVELOPMENT Telephone Encounter - Ro Taylor RN - 11/15/2019 2:41 PM CST Creatinine check/lab order placed in [facility]. I called pt, left vm explaining he can get this checked at his convenience, upon results we will then order his follow up imaging and OV per Dr. Loco and to call if any questions. SHASTA Sotomayor, RN [facility] [place] ORGANIZATIONAL DEVELOPMENT Telephone Encounter - Ro Taylor RN - [...] or CT of chest/abd/pelvis. SHASTA Sotomayor, RN [facility] ORGANIZATIONAL DEVELOPMENT documented in this encounter Plan of Treatment Not on filedocumented as of this encounter Visit Diagnoses Diagnosis Thoracic aortic aneurysm without rupture - Primary Thoracic aneurysm without mention of rup ture Abdominal aortic aneurysm (AAA) without rupture documented in this encounter Additional Health Concerns Infection Onset Date Last Indicated Resolved Time MRSAComment: Positive 02/17/11 and 09/22/12 11/05/2018 019 Negatives 05/03/14 (HE), 12/01/14 (HE) documented as of this encounter Care Teams Beach Lifeguard Relationship Specialty Start Date End Date Bandar, Kehinde Portillofield PCP - General 05/12/[address] [place] [address] documented as of this encounter
--- OUTSIDE RECORDS SUMMARY | 2022-07-17 13:53 | XMS_ITS | Encounter Summary ---
:1940 Author Organization [place] Address [address] [place] [address] Care Team Providers Name Role Phone [facility] Primary Care Provider [phone] Encounter Details Date Type Department Care Team [...] documented as of this encounter Care Teams Bill Peddler Relationship Specialty Start Date End Date [facility], [facility] PCP - General 05/12/[address] [place] [address] documented as of this encounter
--- OUTSIDE RECORDS SUMMARY | 2022-07-17 13:53 | XMS_ITS | Encounter Summary ---
:1940 Author Organization [place] Address [facility] [place] [address] Care Team Providers Name Role Phone Clinic, [facility] Primary Care Provider [phone] Reason for Referral Diagnostic Imaging CT Scan - Closed Specialty Diagnoses / Procedures Referred By Contact Refer red To Contact Radiology. Diagnoses Thoracic aortic aneurysm Juan Lewis MD Ct Scan Procedures CTA Chest Abdomen Pelvis w Contrast [address] [place] [address] [place] [address] Referral ID Status Reason Start Date Expiration Date Visits Requ ested Visits Authorized [id number] Closed 11/12/2018 11/12/2019 1 1 BLE PRESS OPERATOR Reason for Visit Diagnostic Imaging CT Scan - Closed Specialty Diagnoses / Procedures Referred By Contact Refer red To Contact Radiology. Diagnoses Thoracic aortic aneurysm Juan Lewis MD Ct Scan Procedures CTA Chest Abdomen Pelvis w Contrast [address] [place] [address] [place] [address] Referral ID Status Reason Start Date Expiration Date Visits Requ ested Visits Authorized [id number] Closed 11/12/2018 11/12/2019 1 1 Encounter Details Date Type Department Care Team Description 11/26/2018 [facility] Non-Fv Credentialed Pro vider, Lab Thoracic aortic Encounter [facility] Butch Brown MD [address] [place] [address] aneurysm (H) [address] [place] [address] Social [...] R esults for this PELVIS W CONTRAST THIMBLE PRESS OPERATOR aneurysm (H) procedure are in the results section. documented in this encounter Results CTA Chest Abdomen Pelvis w Contrast (11/26/2018 9:03 AM THIMBLE PRESS OPERATOR) Anatomical Region Laterality Modality Lower Extremity, SUBRAD IR PROCEDURE, UMP CT CTA, RAD Computed Tomography CT Specimen (Source) Anatomical Location Collection Method / Collectio n Time Received Time / Laterality Volume Impressions 11/26/2018 4:44 PM THIMBLE PRESS OPERATOR IMPRESSION: 1. New thoracic aortic endograft. Tandem areas of aneurysmal dilatation are relatively unchanged in s ize. No visible endoleak. Recommend annual surveillance. 2. Infrarenal abdominal aortic aneurysm measuring 4.6 x 4.6 cm, unchanged. 3. Somewhat irregular fluid collection i n left groin, likely postoperative seroma. Surrounding enlarg ed lymph nodes. TANNER STARKS MD Narrative 11/26/2018 4:44 PM THIMBLE PRESS OPERATOR CTA CHEST, ABDOMEN AND PELVIS WITH [...] encounter Visit Diagnoses Diagnosis Thoracic aortic aneurysm Thoracic aneurysm without mention of rup ture documented in this encounter Administered Medications Inactive Administered Medications - up to 3 most recent administrations Medication Order MAR Action Action Date Dose Rate Site iopamidol (ISOVUE-370) solution 80 Given 11/26/2018 8:30 AM THIMBLE PRESS OPERATOR 80 mLs mL 80 mL, Intravenous, ONCE, On Thu11/26/18 at 0830, For 1 dose Saline Flush Given 11/26/2018 8:30 AM THIMBLE PRESS OPERATOR 80 mLs Intravenous, 80 mL, ONCE, On [...] documented as of this encounter Care Teams Unleavened Dough Mixer Relationship Specialty Start Date End Date [facility], [facility] PCP - General 05/12/[address] [place] [address] documented as of this encounter
--- OUTSIDE RECORDS SUMMARY | 2022-07-17 13:53 | XMS_ITS | Encounter Summary ---
:1940 Author Organization [place] Address [address] [facility] [place] [address] Care Team Providers Name Role Phone Clinic, [facility] Primary Care Provider [phone] Reason for Visit Reason Comments RECHECK History of thoracic aortic a neurysm without rupture; 6 month follow up to 11-26-[address] Brown Encounter Details Date Type Department Care Team Description 05/17/2019 Office Visit [facility] Butch Brown Abdominal aortic aneurysm (AAA) without rupture (H) (Primary Dx); Vascular Clinic Félix Jay MD Thoracic aortic aneurysm without rupture (H) [address] [place] [address] [place] [id number] Social History Tobacco Use Types Packs/Day Years [...] aneurysms. The patient plans to go to [place] this fall and is back sometime in [...] previously covered. I spent 15 minutes of [id number] time, > 50% spent counseling and coordinating care. Butch Brown MD Vascular Surgery documented in this encounter Plan of Treatment Not on filedocumented as of this encounter Visit Diagnoses Diagnosis Abdominal aortic aneurysm (AAA) without rupture - Primary Thoracic aortic aneurysm without rupture Thoracic aneurysm without mention of rup ture documented in this encounter Additional Health Concerns Infection Onset Date Last Indicated Resolved Time MRSAComment: Positive 02/17/11 and 09/22/12 11/05/2018 019 Negatives 05/03/14 (HE), 12/01/14 (HE) documented as of this encounter Care Teams Blueprint Reproducer Relationship Specialty Start Date End Date [facility], [facility] PCP - General 05/12/[address] [place] [address] documented as of this encounter
--- OUTSIDE RECORDS SUMMARY | 2022-07-17 13:53 | XMS_ITS | Encounter Summary ---
:1940 Author Organization [place] Address [address] [place] [address] Care Team Providers Name Role Phone [facility], [facility] Primary Care Provider Encounter Details Date Type [...] documented as of this encounter Care Teams Jazz Musician Relationship Specialty Start Date End Date [facility], [facility] PCP - General 05/12/[address] [place] [address] documented as of this encounter
--- OUTSIDE RECORDS SUMMARY | 2022-07-17 13:53 | XMS_ITS | Encounter Summary ---
:1940 Author Organization [place] Address [address] [facility] [place] [address] Care Team Providers Name Role Phone [facility], [facility] Primary Care Provider [phone] Reason for Referral Diagnostic Imaging CT Scan - Closed Specialty Diagnoses / Procedures Referred By Contact Refer red To Contact Radiology. Diagnoses Thoracic aortic aneurysm Juan Lewis MD Ct Scan Procedures CTA Chest Abdomen Pelvis w Contrast [address] [place] [address] [place] [address] Referral ID Status Reason Start Date Expiration Date Visits Requ ested Visits Authorized [id number] Closed 11/12/2018 11/12/2019 1 1 SCRUBBER OPERATOR Encounter Details Date Type Department Care Team Description 11/12/2018 [facility] Félix Nava MD aneurysm (H) (Primary [address] Dx ) [address] [place] [address] [place] [address] Social History Tobacco Use Types Packs/Day Years [...] Abdomen Pelvis w Contrast (11/26/2018 9:03 AM GAS SCRUBBER OPERATOR) Anatomical Region Laterality Modality Lower Extremity, SUBRAD IR PROCEDURE, UMP CT CTA, RAD Computed Tomography CT Specimen (Source) Anatomical Location Collection Method / Collectio n Time Received Time / Laterality Volume Impressions 11/26/2018 4:44 PM GAS SCRUBBER OPERATOR IMPRESSION: 1. New thoracic aortic endograft. Tandem areas of aneurysmal dilatation are relatively unchanged in s ize. No visible endoleak. Recommend annual surveillance. 2. Infrarenal abdominal aortic aneurysm measuring 4.6 x 4.6 cm, unchanged. 3. Somewhat irregular fluid collection i n left groin, likely postoperative seroma. Surrounding enlarg ed lymph nodes. TANNER SATRKS MD Narrative 11/26/2018 4:44 PM GAS SCRUBBER OPERATOR CTA CHEST, ABDOMEN AND PELVIS WITH [...] encounter Visit Diagnoses Diagnosis Thoracic aortic aneurysm - Primary Thoracic aneurysm without mention of rup ture Thoracic aortic aneurysm Thoracic aneurysm without mention of rup ture documented in this encounter Additional Health Concerns Infection Onset Date Last Indicated Resolved Time MRSAComment: Positive 02/17/11 and 09/22/12 11/05/2018 019 Negatives 05/03/14 (HE), 12/01/14 (HE) documented as of this encounter Care Teams Drier Tender Naphthalene Relationship Specialty Start Date End Date [facility] PCP - General 05/12/[address] [place] [address] documented as of this encounter
--- OUTSIDE RECORDS SUMMARY | 2022-07-17 13:53 | XMS_ITS | Encounter Summary ---
:1940 Author Organization [place] Address [address] [place] [address] Care Team Providers Name Role Phone [facility] Primary Care Provider [phone] Encounter Details Date Type Department Care Team [...] documented as of this encounter Care Teams Skates Operator Relationship Specialty Start Date End Date [facility] PCP - General 05/12/[address] [place] [address] documented as of this encounter
--- OUTSIDE RECORDS SUMMARY | 2022-07-17 13:53 | XMS_ITS | Encounter Summary ---
:1940 Author Organization [place] Address [address] [place] [address] Care Team Providers Name Role Phone Clinic, [facility] Primary Care Provider [phone] Reason for Referral Diagnostic Imaging CT Scan (Routine) - Closed Specialty Diagnoses / Procedures Referred By Contact Refer red To Contact Radiology. 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 Butch Brown MD Ct Scan [facility] Procedures CT Chest Abdomen Pelvis w/o Contrast [address] [place] [address] [place] [address] [address] Phone: Fax: Referral ID Status Reason Start Date Expiration Date Visits Requ ested Visits Authorized [id number] Closed 05/17/2019 05/16/2020 1 1 OMS APPRAISER Reason for Visit Diagnostic Imaging CT Scan (Routine) - Closed Specialty Diagnoses / Procedures Referred By Contact Refer red To Contact Radiology. 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 Butch Brown MD Ct Scan [facility] Procedures CT Chest Abdomen Pelvis w/o Contrast [address] [place] [address] [place] [address] [phone] [address] Phone: Fax: Referral ID Status Reason Start Date Expiration Date Visits Requ ested Visits Authorized [id number] Closed 05/17/2019 05/16/2020 1 1 Encounter Details Date Type Department Care Team Description 11/09/2019 Hospital Encounter [facility] Butch Brown aortic [facility] MD Pierre aneurysm (AAA) [address] [facility] with out rupture (H) [address] [place] [address] Social History Tobacco Use Types Packs/Day [...] aortic Results for this PELVIS W/O CONTRAST CUSTOMS APPRAISER aneurysm (AAA) proced ure are in without rupture (H) the resu lts section. documented in this encounter Results CT Chest Abdomen Pelvis w/o Contrast (11/09/2019 11:25 AM CUSTOMS APPRAISER) Anatomical Region Laterality Modality Abdomen/Pelvis, SUBRAD CT BODY, UMP CT CHEST, UMP CT Computed Tomography ABDOMEN PELVIS, Chest, RAD CT Specimen (Source) Anatomical Location Collection Method / Collectio n Time Received Time / Laterality Volume Impressions 11/09/2019 3:17 PM CUSTOMS APPRAISER IMPRESSION: 1. 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 2. The aneurysm sac in the distal thorac ic aorta and an infrarenal abdominal aortic aneurysm have increased slightly in size since the previous exam. 3. Moderate age-indeterminate anterior c ompression of the T7 vertebral body is new since the previous exam. JON NICHOLS MD Narrative 11/09/2019 3:[address] CHEST, ABDOMEN AND PELVIS WITHOUT CONTRAST [...] Diagnosis Abdominal aortic aneurysm (AAA) without rupture documented in this encounter Additional Health Concerns Infection Onset Date Last Indicated Resolved Time MRSAComment: Positive 02/17/11 and 09/22/12 11/05/2018 019 Negatives 05/03/14 (HE), 12/01/14 (HE) documented as of this encounter Care Teams Longshore Equipment Operator Relationship Specialty Start Date End Date [facility] PCP - General 05/12/[address] [place] [address] documented as of this encounter
--- OUTSIDE RECORDS SUMMARY | 2022-07-17 13:53 | XMS_ITS | Encounter Summary ---
:1940 Author Organization [place] Address [address] [place] [address] Care Team Providers Name Role Phone Clinic, [facility] Primary Care Provider [phone] Reason for Visit Reason Onset Date Comments Forms 06/30/2019 Encounter Details Date Type Department Care Team Description 06/30/2019 Telephone [facility] Jon White, Forms [address] [place] [address] [phone] (Wo rk) Social History Tobacco Use Types [...] back and records faxed to them at [phone].Desire De Oliveira RN Telephone Encounter - Mallory Montgomery RN - 06/30/2019 1:04 PM CDT Flor over at [facility] called requesting patient records from [...] frustrated by the situation. Faxed form to [facility]. Flor voiced understanding. JOSE Lockwood-BSN-N [facility] [phone] documented in this encounter Plan of Treatment Not on filedocumented as of this encounter Visit Diagnoses Not on filedocumented in this encounter Additional Health Concerns Infection Onset Date Last Indicated Resolved Time MRSAComment: Positive 02/17/11 and 09/22/12 11/05/2018 019 Negatives 05/03/14 (HE), 12/01/14 (HE) documented as of this encounter Care Teams Creative Developer Relationship Specialty Start Date End Date [facility], [facility] PCP - General 05/12/[address] [place] [address] documented as of this encounter
--- OUTSIDE RECORDS SUMMARY | 2022-07-17 13:53 | XMS_ITS | Encounter Summary ---
:1940 Author Organization [place] Address [facility] [place] [address] Care Team Providers Name Role Phone Clinic, [facility] Primary Care Provider [phone] Reason for Visit Reason Comments RECHECK 6 month follow up visit. Encounter Details Date Type Department Care Team Description 11/09/2019 Office Visit [facility] Butch Brown MD [address] [place] [id number] Thoracoabdominal aortic aneurysm (TAAA) without rupture (H) (Primary Dx); Surgery Clinic Ramiro Loco MD [address] [place] [place] [address] CKD (chronic kidney disease) stage 3, GF R 30-59 ml/min (H) [place] [address] [address] [facility] [address] [place] [address] Social History Tobacco Use Types [...] Comments Blood Pressure 128/76 11/09/2019 1:19 PM DEODORIZER OPERATOR Pulse 59 11/09/2019 1:19 PM DEODORIZER OPERATOR Temperature - - Respiratory Rate 16 11/09/2019 1:19 PM DEODORIZER OPERATOR Oxygen Saturation 98% 11/09/2019 1:19 PM DEODORIZER OPERATOR Inhaled Oxygen Concentration - - Weight 82.6 kg (182 lb) 11/09/2019 1:19 PM DEODORIZER OPERATOR Height 167.6 cm (5' 6) 11/09/2019 1:19 PM DEODORIZER OPERATOR Body Mass Index 29.38 11/09/2019 1:19 PM DEODORIZER OPERATOR documented in this encounter Progress Notes Ramiro [...] would absolutely refer him to [facility] to discuss those surgical options. Presently [...] in complete agreement with our plan. Total gyoc-ob-afcl time was 40 minutes, greater than 50% spent providing counseling and education. David Loco MD ORIZER OPERATOR documented in this encounter Plan of Treatment Not on filedocumented as of this encounter Visit Diagnoses Diagnosis Thoracoabdominal aortic aneurysm (TAAA) without rupture - Primary CKD (chronic kidney disease) stage 3, GF R 30-59 ml/min (H) Chronic kidney disease, Stage III (moder ate) documented in this encounter Additional Health Concerns Infection Onset Date Last Indicated Resolved Time MRSAComment: Positive 02/17/11 and 09/22/12 11/05/2018 019 Negatives 05/03/14 (HE), 12/01/14 (HE) documented as of this encounter Care Teams Sterile Instrument Technician Relationship Specialty Start Date End Date [facility] PCP - General 05/12/[address] [place], [place] [address] documented as of this encounter
--- OUTSIDE RECORDS SUMMARY | 2022-07-17 13:53 | XMS_ITS | Encounter Summary ---
:1940 Author Organization [place] Address [address] [place] [address]. [place] [address] Care Team Providers Name Role Phone [facility], [facility] Primary Care Provider [phone] Encounter Details Date Type Department Care Team Description 11/12/2018 Telephone [facility] Vascular Butch Brown MD Clinic [place] [address] [place] [address] [place] [address] [place] [id number] (Wo rk) Social History Tobacco Use Types [...] that f/u with Dr. Brown. Aruna Simmons, Cask Maker GRINDER documented in this encounter Plan of Treatment Not on filedocumented as of this encounter Visit Diagnoses Not on filedocumented in this encounter Additional Health Concerns Infection Onset Date Last Indicated Resolved Time MRSAComment: Positive 02/17/11 and 09/22/12 11/05/2018 019 Negatives 05/03/14 (HE), 12/01/14 (HE) documented as of this encounter Care Teams Puffer Tender Relationship Specialty Start Date End Date [facility], [facility] PCP - General 05/12/[address] [place] [address] documented as of this encounter
--- OUTSIDE RECORDS SUMMARY | 2022-07-17 13:53 | XMS_ITS | Encounter Summary ---
:1940 Author Organization [place] Address [address] [facility] [address] Care Team Providers Name Role Phone Clinic, [facility] Primary Care Provider [phone] Reason for Visit Diagnostic Imaging CT Scan (Routine) - Closed Specialty Diagnoses / Procedures Referred By Contact Refer red To Contact Radiology. Diagnoses Thoracic aortic aneurysm Butch Brown MD Ct Scan Procedures CT Chest Abdomen Pelvis w/o Contrast CTA Chest Abdomen Pelvis w Contrast [address] [place] [address] [place] [address] [place] [address] Referral ID Status Reason Start Date Expiration Date Visits Requ ested Visits Authorized [id number] Closed 11/26/2018 11/26/2019 1 1 Encounter Details Date Type Department Care Team Description 05/17/2019 Hospital Encounter [facility] Butch Brown [place] acic aortic [facility] MD Pierre aneurysm (H) [address] [place] [address] [address] [place] [id number] Social History Tobacco Use Types Packs/Day Years [...] few mildly enlarged left inguinal lymph nodes. AMRISOL MEYER MD Butch Brown MD IMG CT [...] CDT 10:23 AM CDT Butch Brown MD LAB - AKER POCT Performing Organization Address City/State/ZIP Code Phon [...] documented as of this encounter Care Teams Ribbon Lap Machine Tender Relationship Specialty Start Date End Date Clinic, [facility] PCP - General 05/12/17 [address] [place] [address] documented as of this encounter
--- OUTSIDE RECORDS SUMMARY | 2022-07-17 13:53 | XMS_ITS | Encounter Summary ---
:1940 Author Organization [place] Address [address] [place] [address] Care Team Providers Name Role Phone [facility], [facility] Primary Care Provider [phone] Encounter Details Date Type Department Care [...] documented as of this encounter Care Teams Occupational Physician Relationship Specialty Start Date End Date [facility], [facility] PCP - General 05/12/[address] [place] [address] documented as of this encounter
--- OUTSIDE RECORDS SUMMARY | 2022-07-17 13:53 | XMS_ITS | Encounter Summary ---
:1940 Author Organization [place] Address [address] [place] [address] Care Team Providers Name Role Phone Clinic, [facility] Primary Care Provider [phone] Reason for Visit Reason Onset Date Comments Path Results 06/02/2019 Encounter Details Date Type Department Care Team Description 06/02/2019 [facility] Jon White, Path Results [address] [place] [address] [phone] (Wo rk) Social History Tobacco Use Types [...] : MOHS Surgery with Dr. Jon White, Field Machinist to remove skin cancers. Thank you for allowing me to be involved in your health care and for choosing [facility]. If you have any questions or concerns please feel free to contact me at . Sincerely, Dr. Fernando White Telephone Encounter - Mallory Montgomery RN - 06/22/2019 9:06 AM CDT Called and LM for patient to call back in regards to scheduling x3 mohs appointments. ERMA LockwoodLaxmi [facility] [phone] Telephone Encounter - Mallory Montgomery RN - 06/17/2019 11:11 AM CDT Called and LM for patient to call back in regards to scheduling x3 mohs appointments. LENA Lockwood [facility] [phone] Telephone Encounter - Mallory Montgomery RN - 06/14/2019 10:15 AM CDT Called and LM for patient to call back in regards to scheduling x3 mohs appointments. LENA Lockwood [facility] [phone] Telephone Encounter - Mallory Montgomery RN - 06/13/2019 1:05 PM CDT Called and LM for patient to call back in regards to scheduling x3 mohs appointments. LENA Lockwood [facility] [phone] Telephone Encounter - Mallory Montgomery RN - 06/06/2019 4:22 PM CDT Called and spoke to patient. Educated patient on biopsy results- BCC x3. Educated patient on BCC andmohs. Patient stated his is currently in the hospital so he cannot schedule any appointments atthis time. Patient asked that I call him early next week. Patient voiced understanding. LENA Lockwood [facility] [phone] Telephone Encounter - Ryan Grady - 06/06/2019 3:44 PM CDT Please call patient on cell at [phone]. Telephone Encounter - Mallory Montgomery RN - 06/06/2019 8:40 AM CDT Called and LM for patient to call back in regards to biopsy results x3. LENA Lockwood [facility] [phone] Telephone Encounter - Mallory Montgomery RN - 06/03/2019 3:44 PM CDT Called and LM for patient to call back in regards to biopsy results x3. LENA Lockwood [facility] [phone] Telephone Encounter - Mallory Montgomery RN - [...] as of this encounter Care Teams Rn Stars Relationship Specialty Start Date End Date [facility], [facility] PCP - General 05/12/[address] [place] [address] documented as of this encounter
--- OUTSIDE RECORDS SUMMARY | 2022-07-17 13:53 | XMS_ITS | Encounter Summary ---
:1940 Author Organization [place] Address [facility] [facility] [address] Care Team Providers Name Role Phone Clinic, [facility] Primary Care Provider [phone] Reason for Visit Reason Onset Date Comments Pain 08/08/2021 Encounter Details Date Type Department Care Team Description 08/08/2021 Telephone [facility] Ramiro Loco MD Pain Clinic [place] [address] [place] [address] [place] [address] [phone] Social History Tobacco Use Types Packs/Day Years [...] Kim Neal - 08/20/2021 8:38 AM CDT [facility] Who is the name of the provider? Dr Gonzalez What is the location you see this provider at? [place] Reason for call: Returned RN's call - relayed message - Pt is scheduled for Dr Gonzalez on 08/29/21 Auto Body Repair Teacher: Raquel Phone number to call: [phone] Additional Notes: Telephone Encounter - Ro Taylor RN - 08/19/2021 4:37 PM CDT Discussed with Dr. Gonzalez, pt may have office visit with Dr. Gonzalez at next available, no further imaging needed. SHASTA Sotomayor, JOSE [facility] [place] Office: [phone] Telephone Encounter - Cindy Taylor RN - 08/19/2021 4:29 PM CDT I called Raquel and PHIL stating we will discuss with Dr. Gonzalez and get back to her. Cindy VEGAS, JOSE [facility] Office: [phone] Telephone Encounter - Kim Neal - 08/19/2021 3:55 PM CDT [facility] Who is the name of the provider? Prev Dr Lewis, Dr Brown and Dr Loco Pt What is the location you see this provider at? [place] / [place] Reason for call: 1. Pt has not [...] see Dr Gonzalez for another opinion/follow up. Auto Body Repair Teacher: Raquel Phone number to call: [phone] Additional Notes: Pt stated he is still [...] Pt will need oral hydration. Routing to receptionist scheduler to coordinate CTA c/a/p today. Please call pts daughter to coordinate [phone]. Then in person OV f/u with Dr. Loco at next nearest available. SHASTA Sotomayor, RN [facility] Office: [phone] Telephone Encounter - Ro Taylor RN - [...] has had consult with Dr. Orosco at [facility], no further AAA surgery with Dr. Orosco. Reviewed with Rosario Hendricks MD. SHASTA Sotomayor, RN [facility] Office: [phone] Telephone Encounter - Lillian Uribe MA - [...] She would like a call back at [phone] documented in this encounter Plan of Treatment Not on filedocumented as of this encounter Visit Diagnoses Not on filedocumented in this encounter Additional Health Concerns Infection Onset Date Last Indicated Resolved Time MRSAComment: Positive 02/17/11 and 09/22/12 11/05/2018 019 Negatives 05/03/14 (HE), 12/01/14 (HE) documented as of this encounter Care Teams Golf Cart Mechanic Relationship Specialty Start Date End Date Clinic, [facility] PCP - General 05/12/[address] [place] [address] documented as of this encounter
--- OUTSIDE RECORDS SUMMARY | 2022-07-17 13:54 | XMS_ITS | Encounter Summary ---
:1940 Author Organization [place] Address [address] [place] [address] Care Team Providers Name Role Phone Clinic, [facility] Primary Care Provider [phone] Reason for Visit Surgical Procedure Inpatient (Routine) - Closed Specialty Diagnoses / Procedures Referred By Contact Refer red To Contact Vascular Surgery / Diagnoses DESCENDING THORACIC AORTIC ANEURYSM Juan Vásquez Brett Surgery Procedures *OR51*DR. VÁSQUEZ/DR. GARVIN*THORACIC ENDOVASCULAR ANEURYSM REPAIR WITH [employer] GRAFT MD Pierre Nava MD [address] [place] [address] [place] [address] Fax: Referral ID Status Reason Start Date Expiration Date Visits Requ ested Visits Authorized [id number] Closed 11/05/2018 11/05/2019 1 1 Encounter Details Date Type Department Care Team Description 11/05/2018 Office Visit [facility] Butch Garvin MD [address] [place] [address] Juan Vásquez MD [address] [place] [id number] Fellow, Sh Surg Cons Social History Tobacco [...] documented as of this encounter Care Teams Asphalt Roller Operator Relationship Specialty Start Date End Date [facility] PCP - General 05/12/17 [address] [place] [address] documented as of this encounter
--- OUTSIDE RECORDS SUMMARY | 2022-07-17 13:54 | XMS_ITS | Encounter Summary ---
:1940 Author Organization [place] Address [address] [place] [address] Care Team Providers Name Role Phone [facility], [facility] Primary Care Provider [phone] Encounter Details Date Type Department Care Team [...] documented as of this encounter Care Teams Physical Security Specialist Relationship Specialty Start Date End Date [facility], [facility] PCP - General 05/12/[address] [place] [address] documented as of this encounter
--- OUTSIDE RECORDS SUMMARY | 2022-07-17 13:54 | XMS_ITS | Encounter Summary ---
:1940 Author Organization [place] Address [facility] [place] [address] Care Team Providers Name Role Phone Clinic, [facility] Primary Care Provider [phone] Encounter Details Date Type Department Care Team Description 11/05/2018 Anesthesia Event [facility] Zakia Santoyo, Interventional Radio logy [address] [place] [address] ANESTHESIOLOGY [phone] [address] [place] [address] Anesthesia Record Procedure Summary Procedure Name Responsible [...] on filedocumented in this encounter Care Teams Sales Representative Girls' Apparel Relationship Specialty Start Date End Date [facility] Portillo PCP - General 05/12/[address] [place] [address] documented as of this encounter
--- OUTSIDE RECORDS SUMMARY | 2022-07-17 13:54 | XMS_ITS | Encounter Summary ---
:1940 Author Organization [place] Address [facility] [place] [address] Care Team Providers Name Role Phone Clinic, [facility] Primary Care Provider [phone] Reason for Referral Therapeutic Imaging/IR - Closed Specialty Diagnoses / Procedures Referred By Contact Refer red To Contact Diagnoses Descending thoracic aortic aneurysm Juan Lewis MD Procedures IR Thoracic Endovascular Stent Graft [address] [place] [address] Referral ID Status Reason Start Date Expiration Date Visits Requ ested Visits Authorized [id number] Closed 10/28/2018 10/28/2019 1 1 GRINDER Reason for Visit Auth/Cert Specialty Diagnoses / Procedures Referred By Contact Refer red To Contact Surgery Diagnoses DESCENDING THORACIC AORTIC ANEURYSM Sh Periop Services Procedures ENDOVASCULAR REPAIR ANEURYSM THORACIC AORTIC [address] [place] [address] Phone: Referral ID Status Reason Start Date Expiration Date Visits Requ ested Visits Authorized [id number] 1 1 Encounter Details Date Type Department Care Team Description 11/05/2018 - Hospital Encounter [facility] Elizabeth Lewis MD [address] [place] [id number] Thoracic aortic aneurysm without rupture (H) (Primary Dx); 11/09/2018 Gallito Sommers MD [address] [place] [id number] Descending thoracic aortic aneurysm (H) Intermediate Care Butch Brown MD [address] [place] [id number] [address] [phone] Social History Tobacco Use Types Packs/Day Years [...] Comments Blood Pressure 158/88 11/09/2018 8:28 AM SOAP GRINDER Pulse 100 11/09/2018 5:00 AM SOAP GRINDER Temperature 36.6 ??C (97.9 ??F) 11/09/2018 7:31 AM SOAP GRINDER Respiratory Rate 22 11/09/2018 8:00 AM SOAP GRINDER Oxygen Saturation 93% 11/09/2018 5:00 AM SOAP GRINDER Inhaled Oxygen Concentration - - Weight 87.3 kg (192 lb 7.4 oz) 11/09/2018 6:39 AM SOAP GRINDER Height 167.6 cm (5' 6) 11/05/2018 6:27 AM SOAP GRINDER Body Mass Index 31.06 11/05/2018 6:27 AM SOAP GRINDER documented in this encounter Discharge Summaries Bessy Mccray MD - 11/09/2018 10:56 AM CST Physician Discharge Summary Patient ID: Speedy Hendricks [id number] 78 year old 1940 Admit date: 11/05/2018 [...] an oral diet. He was discharged to [facility] on POD#4 in stable condition. Consults: pulmonary/intensive [...] repeat creatinine checked prior to. Signed: Bessy Rigo 11/09/2018 10:56 AM GRINDER Associated attestation - Juan Lewis MD - 11/11/2018 3:10 PM SOAP GRINDER Physician Attestation I, Juan Lewis, have reviewed [...] Traylor RN - 11/09/2018 11:47 AM CST GRINDER AttachmentsThe following attachments cannot be sent through Care Everywhere.(S) TREATING A THORACIC AORTIC ANEURYSM (TAA): ENDOVASCULAR GRAFT (CUBAN) documented in this encounter Medications at Time [...] home with family via car.All questions answered. GRINDER Gurwinder Godoy MD - 11/09/2018 12:02 PM CST [facility] Vascular Medicine Progress Note Date of Service (when I saw the patient): 11/09/2018 Physician Supervisory Attestation: I have reviewed and discussed with the physician diagnostic assistant their history, physical and plan and independently interviewed and examined Devonjenniffer Hendricks and agree with the plan as [...] Discussed with vascular surgery service. Gurwinder Godoy MD,[facility] Vascular Medicine service 11/09/2018 Assessment & [...] Rate: 93 Resp: 22 SpO2: 93 % B2Jxsruk: None (Room air) Vitals: 11/06/18 0211 11/07/18 [...] = values in this interval not displayed. GRINDER Bessy Mccray MD - 11/09/2018 7:36 AM [...] Bessy Martinez MD Vascular Surgery Fellow Pager GRINDER Associated attestation - Butch Brown MD - 11/16/2018 9:50 AM SOAP GRINDER I was involved with the assessment and plan, and I agree with the findings and plan of care as documented in the fellow's note. MD Wilfredo Castillo Carley, JOSE - 11/08/2018 6:35 PM CST Pt arrived to station 33 @ 1820 GRINDER Aura Crooks RN - 11/08/2018 5:05 PM CST Pt had drained removed this AM. Draining moderate amount- MDA aware. SR. BP wnl- gave hydralazine x1prn. Chapman to be removed prior to transfer. Lines out and hemostasis achieved. Up to chair- tolerated well, SBA. Frequent neuros- wnl. Will call report to [facility] and will transfer at 6p. GRINDER Dimas Chapman MD - 11/08/2018 12:41 PM CST [facility] Vascular Medicine Progress Note Date of [...] -- AST 19 -- -- -- -- GRINDER Bessy Mccray MD - 11/08/2018 8:18 AM [...] Bessy Martinez MD Vascular Surgery Fellow Pager GRINDER Associated attestation - Butch Brown MD - 11/16/2018 3:00 PM SOAP GRINDER I was involved with the assessment and [...] please contact primary service first. Kaleb Rodriguez GRINDER Kristy Castañeda RN - 11/08/2018 6:50 AM [...] drain tubing following [place] [id number] down from 100s yesterday. At this time, [...] with any neuro changes. Bart Feliciano MD. GRINDER Christina Burrell MD - 11/07/2018 3:03 PM [...] Christina Burrell MD Vascular Surgery Fellow Pgr GRINDER Bishop Tran MD - 11/07/2018 11:55 AM CST Control Specialist: S: Mild groin pain this [...] Dr. Staley of vascular medicine at bedside. Control Specialist service will sign off for now. Please re-consult as needed. GRINDER Gurwinder Godoy MD - 11/07/2018 9:09 AM CST [facility] Vascular Medicine Progress Note Date of [...] If any change in neuro status contact vasc surgery first and consider neurocritical care to [...] good Reviewed last night events, discussed with Control Specialist and ICU nursing staff this [...] . Avoid nephrotoxic meds. ?? Gurwinder Godoy MD,FS,[facility] Vascular Medicine Interval History Reviewed last [...] 7.8* 8.6 -- GLC 115* 121* -- Danette Cleveland RN - 11/07/2018 8:50 AM CST 0800: [...] to keep SBP <160 and MAP >80. Gurwinder Manning MD - 11/06/2018 12:00 PM CST [facility] Vascular Medicine Progress Note Date of [...] . Avoid nephrotoxic meds. ?? Gurwinder Godoy MD,[facility] Vascular Medicine Interval History Reviewed last [...] 7.8* 8.6 -- GLC 115* 121* -- GRINDER Millie Handley APRN [employer] - 11/06/2018 11:55 AM CST Critical Care [...] Total critical care time today 35 min. GRINDER Associated attestation - Bishop Tran MD - 11/12/2018 10:50 AM SOAP GRINDER Physician Attestation I, Bishop Tran, have reviewed [...] sufficient urine. Continue plan as documented in PERIPHERAL VASCULAR TECH note. The patient does not seem to [...] for the 11/05/2018 admission is complete. See [facility] admission navigator for prior to admission medications Medication history source reliability:Good Medication history interview source(s):Patient Medication history resources (including written lists, pill bottles, clinic record):Patient mailed in his medication list prior to surgery Primary pharmacy.[facility] Additional medication history information not noted on FL[employer] med list :None Time spent in this [...] Bedtime 11/04/2018 at 2200 Yes Reported, Patient GRINDER documented in this encounter Procedure Notes Missael [...] management per anethesia/vasc surg Missael Garcia MD [phone] GRINDER documented in this encounter Consult Notes Kaleb Rodriguez NP - 11/05/2018 5:14 PM CSTAssociated Order(s): EXTRUSION LINE OPERATOR IP CONSULT [facility] Consult Critical Care Service Date of [...] Code Status Full Code Primary Care Physician [facility] Chief Complaint S/p TEVAR History of [...] IR Lumbar Drain Placement w Fluoro Narrative [facility] RADIOLOGY INTERVENTIONAL NEURORADIOLOGY PROCEDURAL NOTE FLUOROSCOPICALLY GUIDED [...] CPT codes included for physician reference only: 94865/21003 MISSAEL GARCIA MD Glucose by meter Result Value Ref Range Glucose 124 (H) 70 - 99 mg/dL GRINDER Associated attestation - Olive Bello MD - 11/05/2018 10:58 PM SOAP GRINDER ICU STAFF: I have discussed Mr. Hendricks's [...] management per vascular surgery. Olive Bello MD #[id number] 11/05/18 Bill as Advanced Practice Provider only. Gurwinder Godoy MD - 11/05/2018 1:40 PM CST [facility] Vascular Medicine Consultation Date of Admission: 11/05/2018 Date of Consult (When I saw the patient): 11/05/18 Physician Supervisory Attestation: I have reviewed and discussed with the physician diagnostic assistant their history, physical and plan and [...] consult Copy to Dr. Debbie Godoy MD ,[facility] Vascular Medicine 11/05/2018 Assessment & Plan [...] 78 year old male Primary Care Physician [facility] History of Present Illness Speedy Hendricks [...] Labs Lab Test 11/05/18 0655 A1C 5.2 GRINDER documented in this encounter Nursing Notes Isis Rivera RN - 11/05/2018 8:40 AM CST Noted swelling left ankle GRINDER documented in this encounter Miscellaneous Notes Plan of Care - MariaC Dunbar RN - 11/09/2018 7:00 AM CST [...] sites soft, bruised, CMS intact. Voiding okay. GRINDER Plan of Care - Misty Villalobos RN - 11/08/2018 7:10 PM CST A/O x4. AVSS on RA. Tele NSR. Hydralazine given x1. Up SBA. Neuros intact. CMS intact. Groin sites, steri strips. Back site, moist drainage. Pulses, palpable, +2. Regular diet. Chapman removed at 1740, Due to void. GRINDER Provider Notification - Aura Crooks RN - 11/08/2018 11:37 AM CST MD NOTIFICATION Person Notified: MDA Notified Person's Name: Yeimi Notification Date/Time: 11/08/2017 1135 Notification Interaction: Paged physician Purpose of Notification: Pt remains to have drainage from lumbar drain site. Orders Received: MDA to come assess pt. GRINDER Plan of Care - Kristy Castañeda RN [...] access readiness for lumbar drain removal today. GRINDER Provider Notification - Kristy Castañeda RN - [...] assess pulling the drain. Kristy Castañeda RN GRINDER Plan of Care - Aura Crooks RN - 11/07/2018 6:17 PM CST Neuro: LUCAS- strength 5/5. PERRL. Complains of soreness in groin/hips from moving them too much. Ptup in chair for a hour and tolerated well. Ok'd with Anesthesia MD, Rabun, to get up in chair forno more [...] some blood in tubing- Anesthesia MD aware. GRINDER Plan of Care - Danette Peck RN - 11/07/2018 1:12 PM CST [id number] Continued with numbness bilateral top of thighs. [...] and dtr in room when Drs here. GRINDER Provider Notification - Ramiro Lozano RN - 11/07/2018 6:17 AM CST Paged vascular surgery fellow Ashanti regarding new numbness to anterior thighs. CSF has been drained, will begin 500ml bolus unless directed otherwise. GRINDER Plan of Care - Ramiro Lozano RN [...] clamped now. Daughter Raquel updated this morning. GRINDER Provider Notification - Ramiro Lozano RN - 11/07/2018 5:[address] Wang regarding new leg pain and ICP increase. Opening drain for 15ml CSF over 1 hr per order. GRINDER Plan of Care - Danette Peck RN - 11/06/2018 4:34 PM CST [id number] Neuro checks remain intact. Able to move [...] be retested for MRSA per infection control. GRINDER Plan of Care - Ramiro Lozano RN [...] this shift. Daughter Raquel updated this morning. GRINDER Plan of Care - Danette Peck RN - 11/05/2018 9:43 PM CST [id number] Neuro: intact. Able to move hips slightly [...] by physicians. Care transferred to next nurse. GRINDER Provider Notification - Ramiro Lozano RN - 11/05/2018 7:46 PM CST Notified software asset manager regarding failure to meet MAP goal of 80, new orders received. GRINDER Op Note - Butch Brown MD - [...] descending aortic angiogram SURGEON: Butch Brown MD REGULATORY AFFAIRS ASSISTANT: Kannan Starks MD; Bessy Mas MD - Vascular Fellow [...] then able to upsized to a 6 Cambodian sheath over a Bentson wire.The patient was [...] femoral artery and upsized to an 11 Cambodian sheath. We then able to insert JULIANE [...] was removed and backfilled with a 16 Cambodian dry seal on the left.At this point [...] superficial femoral artery access which was 6 Cambodian sheath with an Angio-Seal closure device performed by Dr. Kannan Starks. We held pressure in this location for [...] the drain. Butch Brown MD Vascular Surgery GRINDER Brief Op Note - Bessy Mccray MD - 11/05/2018 12:29 PM CST [facility] Brief Operative Note Pre-operative diagnosis: DESCENDING THORACIC AORTIC ANEURYSM Post-operative diagnosis same Procedure: Procedure(s): THORACIC ENDOVASCULAR ANEURYSM REPAIR WITH MEDTRONIC GRAFT Surgeon: Surgeon(s) and Role: * Juna Lewis MD - Primary * Butch Brown [...] Palp DP bilaterally Complications: None. Implants: None. GRINDER Associated attestation - Butch Brown MD - 11/05/2018 1:09 PM SOAP GRINDER Butch Brown MD IR Note - Gwen Rivas RN - 11/05/2018 10:27 AM CST Interventional Radiology Intra-procedural Nursing Note Patient Name: Speedy Hendricks Today's Date: November 05, 2018 Start Time: 0850 End of procedure time: 09 Procedure: lumbar drain placement Report given to: Dr. See, anesthesia Time pt departs: 919 Artificial Breast Fabricator: n/a Other Notes: patient tolerated well. Drain connected to closed drainage system flushed with preservative free NS per Dr. Haro. 1mg Versed and 50mcg Fentanyl IV given for additional sedation (had received 4mg Versed and 100mcg Fentanyl in pre-op prior to arrival). SR on monitor .VSS. Patient taken back to pre-op bay in stable condition. Gwen Rivas RNreal time analyst Radiology GRINDER documented in this encounter Plan of Treatment Not on filedocumented as of this encounter Procedures Procedure Name Priority Date/Time Associated Comments Diagnosis CBC WITH PLATELETS & Routine 11/09/2018 7:41 AM Descending tho racic Results for this DIFFERENTIAL SOAP GRINDER aortic aneurysm (H) procedur e are in the results section. COMPREHENSIVE Routine 11/09/2018 7:41 AM Descending thoracic R esults for this METABOLIC PANEL SOAP GRINDER aortic aneurysm (H) proce dure are in the results section. MAGNESIUM Routine 11/08/2018 3:40 AM Descending thoracic Re sults for this SOAP GRINDER aortic aneurysm (H) procedur e are in the results section. COMPREHENSIVE Routine 11/08/2018 3:40 AM Descending thoracic R esults for this METABOLIC PANEL SOAP GRINDER aortic aneurysm (H) proce dure are in the results section. CBC WITH PLATELETS Routine 11/08/2018 3:40 AM Descending thora cic Results for this SOAP GRINDER aortic aneurysm (H) procedur e are in the results section. CBC WITH PLATELETS STAT 11/07/2018 3:00 PM Descending thora cic Results for this SOAP GRINDER aortic aneurysm (H) procedur e are in the results section. CBC WITH PLATELETS & Timed 11/07/2018 9:50 AM Descending tho racic Results for this DIFFERENTIAL SOAP GRINDER aortic aneurysm (H) procedur e are in the results section. MAGNESIUM Routine 11/07/2018 9:50 AM Descending thoracic Re sults for this SOAP GRINDER aortic aneurysm (H) procedur e are in the results section. BASIC METABOLIC PANEL Timed 11/07/2018 9:50 AM Descending th oracic Results for this SOAP GRINDER aortic aneurysm (H) procedur e are in the results section. GLUCOSE BY METER Routine 11/07/2018 7:44 AM Descending thoraci c Results for this SOAP GRINDER aortic aneurysm (H) procedur e are in the results section. GLUCOSE BY METER Routine 11/07/2018 3:49 AM Descending thoraci c Results for this SOAP GRINDER aortic aneurysm (H) procedur e are in the results section. GLUCOSE BY METER Routine 11/07/2018 12:08 Descending thoracic Results for this AM SOAP GRINDER aortic aneurysm (H) procedur e are in the results section. GLUCOSE BY METER Routine 11/06/2018 7:53 PM Descending thoraci c Results for this SOAP GRINDER aortic aneurysm (H) procedur e are in the results section. GLUCOSE BY METER Routine 11/06/2018 11:02 Descending thoracic Results for this AM SOAP GRINDER aortic aneurysm (H) procedur e are in the results section. GLUCOSE BY METER Routine 11/06/2018 7:38 AM Descending thoraci c Results for this SOAP GRINDER aortic aneurysm (H) procedur e are in the results section. LACTIC ACID WHOLE Routine 11/06/2018 4:15 AM Descending thorac ic Results for this BLOOD SOAP GRINDER aortic aneurysm (H) procedur e are in the results section. BASIC METABOLIC PANEL Routine 11/06/2018 4:15 AM Descending th oracic Results for this SOAP GRINDER aortic aneurysm (H) procedur e are in the results section. CBC WITH PLATELETS Routine 11/06/2018 4:15 AM Descending thora cic Results for this SOAP GRINDER aortic aneurysm (H) procedur e are in the results section. GLUCOSE BY METER Routine 11/06/2018 1:12 AM Descending thoraci c Results for this SOAP GRINDER aortic aneurysm (H) procedur e are in the results section. MRSA MSSA PCR, NASAL STAT 11/05/2018 11:41 Descending thora cic Results for this SWAB PM SOAP GRINDER aortic aneurysm (H) procedur e are in the results section. GLUCOSE BY METER Routine 11/05/2018 8:16 PM Descending thoraci c Results for this SOAP GRINDER aortic aneurysm (H) procedur e are in the results section. GLUCOSE BY METER Routine 11/05/2018 4:39 PM Descending thoraci c Results for this SOAP GRINDER aortic aneurysm (H) procedur e are in the results section. INR STAT 11/05/2018 4:35 PM Descending thoracic Re sults for this SOAP GRINDER aortic aneurysm (H) procedur e are in the results section. LACTIC ACID WHOLE STAT 11/05/2018 4:35 PM Descending thorac ic Results for this BLOOD SOAP GRINDER aortic aneurysm (H) procedur e are in the results section. BASIC METABOLIC PANEL STAT 11/05/2018 4:35 PM Descending th oracic Results for this SOAP GRINDER aortic aneurysm (H) procedur e are in the results section. CBC WITH PLATELETS STAT 11/05/2018 4:35 PM Descending thora cic Results for this SOAP GRINDER aortic aneurysm (H) procedur e are in the results section. IR THORACIC Routine 11/05/2018 12:09 Descending thoracic Resu lts for this ENDOVASCULAR STENT PM SOAP GRINDER aortic aneurysm (H) pr ocedure are in GRAFT the results section. REPAIR, ANEURYSM, 11/05/2018 9:35 AM DESCENDING THORAC IC THORACIC AORTIC, SOAP GRINDER AORTIC ANEURYSM ENDOVASCULAR Special Needs BLOOD TRANSFUSION ISSUE (RAR E ANTIBODIES) PT WILL DO A TYPE AND CROSS ON 11/03 JALEEL 10/28 IR LUMBAR DRAIN Routine 11/05/2018 9:10 AM Result s for this PLACEMENT W FLUORO SOAP GRINDER procedure are in the results section. EKG 12-LEAD, TRACING STAT 11/05/2018 6:58 AM R esults for this ONLY SOAP GRINDER procedure are i n the results section. POTASSIUM STAT 11/05/2018 6:55 AM Descending thoracic Re sults for this SOAP GRINDER aortic aneurysm (H) procedur e are in the results section. LIPID PROFILE STAT 11/05/2018 6:55 AM Descending thoracic R esults for this SOAP GRINDER aortic aneurysm (H) procedur e are in the results section. HEMOGLOBIN A1C STAT 11/05/2018 6:55 AM Descending thoracic Results for this SOAP GRINDER aortic aneurysm (H) procedur e are in the results section. CREATININE STAT 11/05/2018 6:55 AM Descending thoracic Re sults for this SOAP GRINDER aortic aneurysm (H) procedur e are in the results section. XR CHEST PORT 1 VIEW STAT 11/05/2018 6:40 AM R esults for this SOAP GRINDER procedure are i n the results section. EKG CARDIAC - HIM 09/24/2018 12:00 AM SCAN SOAP GRINDER documented in this encounter Results (ABNORMAL) CBC with platelets differential (11/09/2018 7:41 AM [facility]) Component Value Ref Test Analysis Performed At [facility] gist Range Method Time Signature WBC 9.3 4.0 - 11/09/2018 [facility] 11.0 8:06 AM [place] [id number] RBC Count 3.55 (L) 4.4 - 11/09/2018 [facility] 5.9 8:06 AM [place] [id number] Hemoglobin 11.3 (L) 13.3 - 11/09/2018 [facility] 17.7 8:06 AM [facility] Hematocrit 33.7 (L) 40.0 - 11/09/2018 [facility] 53.0 % 8:06 AM [facility] MCV 95 78 - 100 11/09/2018 [facility] fl 8:06 AM [facility] MCH 31.8 26.5 - 11/09/2018 [facility] 33.0 pg 8:06 AM [facility] MCHC 33.5 31.5 - 11/09/2018 [facility] 36.5 8:06 AM [facility] RDW 13.9 10.0 - 11/09/2018 [facility] 15.0 % 8:06 AM [facility] Platelet Count 83 (L) 150 - 11/09/2018 [facility] 450 8:[address] Diff Method Manual 11/09/2018 [facility] Differential [...] - 11/09/2018 [facility] Neutrophil 8.3 8:[address] Absolute 0.6 (L) 0.8 - 11/09/2018 [facility] Lymphocytes 5.3 8:[address] Absolute 0.7 0.0 - 11/09/2018 [facility] Monocytes 1.3 8:[address] Absolute 0.2 0.0 - 11/09/2018 [facility] Eosinophils 0.7 8:[address] Absolute 0.0 0.0 - 11/09/2018 [facility] Basophils 0.2 8:[address] RBC Morphology Consistent with 11/09/2018 [facility] reported results 8:31 AM [facility] Platelet Automated count 11/09/2018 [facility] Estimate confirmed. 8:31 AM [facility] morphology is normal. Specimen Anatomical Collection Method Collection Time Receive d Time (Source) Location / / Volume Laterality Blood specimen 11/09/2018 7:41 AM 019 7:51 (specimen) SOAP GRINDER AM SOAP GRINDER Dimas Chapman MD LAB - BLOOD ORDERABLES Performing Organization Address City/State/ZIP Code Phon e Number M [facility] [address] [place] [address] [facility] [address] [place] [address], [place] [phone] (ABNORMAL) Comprehensive metabolic panel (11/09/2018 7:41 AM SOAP GRINDER) P athologist Signature Sodium 144 133 - 144 11/09/2018 [place] mmol/L 8:11 AM [facility] Potassium 4.0 3.4 - 5.3 11/09/2018 [place] mmol/L 8:11 AM [facility] Chloride 113 (H) 94 - 109 11/09/2018 [place] mmol/L 8:11 AM [facility] Carbon Dioxide 22 20 - 32 11/09/2018 [place] mmol/L 8:17 AM [facility] Anion Gap 9 3 - 14 11/09/2018 [place] mmol/L 8:17 AM [facility] Glucose 94 70 - 99 11/09/2018 [place] mg/dL 8:17 AM [facility] Urea Nitrogen 21 7 - 30 11/09/2018 [place] mg/dL 8:17 AM [facility] Creatinine 1.24 0.66 - 11/09/2018 [place] 1.25 mg/dL 8:17 AM [facility] GFR Estimate 56 (L) >60 11/09/2018 [place] mL/min/{1. 8:17 AM [facility] 73_m2} HOSPITAL Comment: Non GFR Calc Starting 10/05/2018, serum creatinine ba sed estimated GFR (eGFR) will be calculated using the Chronic Kidney Dise [facility] Epidemiology Collaboration (CKD-EPI) equation. GFR Estimate If 65 >60 mL/min/{1.73_m2} 11/09/2018 8: 17 AM [facility] Comment: GFR Calc Starting 10/05/2018, serum creatinine ba sed estimated GFR (eGFR) will be calculated using the Chronic Kidney Dise [facility] Epidemiology Collaboration (CKD-EPI) equation. Calcium 8.4 (L) 8.5 - 10.1 11/09/2018 8:17 AM [facility] mg/dL [facility] Bilirubin Total 1.3 0.2 - 1.3 mg/dL 11/09/2018 8:19 AM [facility] Albumin 2.4 (L) 3.4 - 5.0 g/dL 11/09/2018 8:19 AM [facility] Protein Total 6.2 (L) 6.8 - 8.8 g/dL 11/09/2018 8:19 AM [facility] Alkaline Phosphatase 72 40 - 150 U/L 11/09/2018 8:19 AM [facility] ALT 17 0 - 70 U/L 11/09/2018 8:19 AM [facility] AST 15 0 - 45 U/L 11/09/2018 8:19 AM [facility] Specimen Anatomical Collection Method Collection Time Receive d Time (Source) Location / / Volume Laterality Blood specimen 11/09/2018 7:41 AM 019 7:51 (specimen) SOAP GRINDER AM [facility] Dimas Chapman MD LAB - BLOOD ORDERABLES Performing Organization Address City/State/ZIP Code Phon e Number M [facility] [address] [place] [address] [phone] [facility] [address] [place] [address], [place] [phone] Magnesium Level scheduled every Thu Wed Thu (11/08/2018 3:40 AM SOAP GRINDER) P athologist Signature Magnesium 1.7 1.6 - 2.3 11/08/2018 [facility] mg/dL 4:06 AM [facility] Specimen Anatomical Collection Method Collection Time Receive d Time (Source) Location / / Volume Laterality Blood specimen 11/08/2018 3:40 AM 019 3:46 (specimen) SOAP GRINDER AM SOAP GRINDER Dimas Chapman MD LAB - BLOOD ORDERABLES Performing Organization Address City/State/ZIP Code Phon e Number M [facility] [address] [address] [facility] [address] [place] [address], [place] [phone] (ABNORMAL) Comprehensive metabolic panel (11/08/2018 3:40 AM SOAP GRINDER) Analysis Performed At Patho logist Time Signature [...] (L) >60 11/08/2018 [facility] mL/min/{1. 4:04 AM [facility] 73_m2} HOSPITAL Comment: Non GFR Calc Starting 10/05/2018, serum creatinine ba sed estimated GFR (eGFR) will be calculated using the Chronic Kidney Dise [facility] Epidemiology Collaboration (CKD-EPI) equation. GFR Estimate If 62 >60 mL/min/{1.73_m2} 11/08/2018 4: 04 AM [facility] Comment: GFR Calc Starting 10/05/2018, serum creatinine ba sed estimated GFR (eGFR) will be calculated using the Chronic Kidney Dise [facility] Epidemiology Collaboration (CKD-EPI) equation. Calcium 8.2 (L) 8.5 - 10.1 11/08/2018 4:04 AM [facility] mg/dL [facility] Bilirubin Total 1.1 0.2 - 1.3 mg/dL 11/08/2018 4:06 AM [facility] Albumin 2.6 (L) 3.4 - 5.0 g/dL 11/08/2018 4:06 AM [facility] Protein Total 6.0 (L) 6.8 - 8.8 g/dL 11/08/2018 4:06 AM [facility] Alkaline Phosphatase 62 40 - 150 U/L 11/08/2018 4:06 AM [facility] ALT 18 0 - 70 U/L 11/08/2018 4:06 AM [facility] AST 19 0 - 45 U/L 11/08/2018 4:06 AM [facility] Specimen Anatomical Collection Method Collection Time Receive d Time (Source) Location / / Volume Laterality Blood specimen 11/08/2018 3:40 AM 019 3:46 (specimen) SOAP GRINDER AM SOAP GRINDER Gurwinder Godoy MD LAB - BLOOD ORDERABLES Performing Organization Address City/State/ZIP Code Phon e Number M [facility] [address] [address] [facility] [address] [address], U [phone] (ABNORMAL) CBC (AM Draw) (11/08/2018 3:40 AM SOAP GRINDER) Analysis Performed At Patho logist Time Signature [...] specimen 11/08/2018 3:40 AM 019 3:46 (specimen) SOAP GRINDER AM SOAP GRINDER Gurwinder Godoy MD LAB - BLOOD ORDERABLES Performing Organization Address City/State/ZIP Code Phon e Number M [facility] [address] [address] [phone] [facility] [address] [place] [address], U [phone] (ABNORMAL) CBC with platelets (11/07/2018 3:00 PM SOAP GRINDER) Analysis Performed At Patho logist Time Signature [...] - 450 11/07/2018 [facility] 10e9/L 3:08 PM [facility] Specimen Anatomical Collection Method Collection Time Receive d Time (Source) Location / / Volume Laterality Blood specimen 11/07/2018 3:00 PM 019 3:05 (specimen) SOAP GRINDER PM SOAP GRINDER Bart Feliciano MD LAB - BLOOD ORDERABLES Performing Organization Address City/State/ZIP Code Phon e Number M [facility] [address] [address] [place] [address] [place] [address], U [phone] Magnesium (11/07/2018 9:50 AM SOAP GRINDER) P athologist Signature Magnesium 1.6 1.6 - 2.3 11/07/2018 [facility] mg/dL 11:12 AM [facility] Specimen Anatomical Collection Method Collection Time Receive d Time (Source) Location / / Volume Laterality 11/07/2018 9:50 AM 9 SOAP GRINDER 10:04 AM SOAP GRINDER Gurwinder Godoy MD LAB - BLOOD ORDERABLES Performing Organization Address City/State/ZIP Code Phon e Number M [facility] [address] [address] [phone] [place] [address] [place] [address] [address], [place] [phone] (ABNORMAL) CBC with platelets differential (11/07/2018 9:50 AM [facility]) [facility] Method Time Signature WBC 10.4 4.0 - 11/07/2018 [facility] 11.0 10:13 AM [facility] 10e9/L [facility] RBC Count 3.63 (L) 4.4 - 5.9 11/07/2018 [facility] 10e12/L 10:13 AM [facility] Hemoglobin 11.5 (L) 13.3 - 11/07/2018 [facility] 17.7 g/dL 10:13 AM [facility] Hematocrit 34.3 (L) 40.0 - 11/07/2018 [facility] 53.0 % 10:13 AM [facility] MCV 95 78 - 100 11/07/2018 [facility] fl 10:13 AM [facility] MCH 31.7 26.5 - 11/07/2018 [facility] 33.0 pg 10:13 AM [facility] MCHC 33.5 31.5 - 11/07/2018 [facility] 36.5 g/dL 10:13 AM [facility] RDW 14.0 10.0 - 11/07/2018 [facility] 15.0 % 10:13 AM [facility] Platelet Count 82 (L) 150 - 450 11/07/2018 [facility] 10e9/L 10:37 AM [facility] Diff Method Automated 11/07/2018 [facility] Method 10:37 AM [facility] % Neutrophils 78.8 % 11/07/2018 [facility] 10:37 AM [facility] % Lymphocytes 6.2 % 11/07/2018 [facility] 10:37 AM [facility] % Monocytes 14.7 % 11/07/2018 [facility] 10:37 AM [facility] % Eosinophils 0.2 % 11/07/2018 [facility] 10:37 AM [facility] % Basophils 0.0 % 11/07/2018 [facility] 10:37 AM [facility] % Immature 0.1 % 11/07/2018 [facility] Granulocytes 10:37 AM [facility] Nucleated RBCs 0 0 /100 11/07/2018 [facility] 10:37 AM [facility] Absolute 8.2 1.6 - 8.3 11/07/2018 [facility] Neutrophil 10e9/L 10:37 AM [facility] Absolute 0.6 (L) 0.8 - 5.3 11/07/2018 [facility] Lymphocytes 10e9/L 10:37 AM [facility] Absolute 1.5 (H) 0.0 - 1.3 11/07/2018 [facility] Monocytes 10e9/L 10:37 AM [facility] Absolute 0.0 0.0 - 0.7 11/07/2018 [facility] Eosinophils 10e9/L 10:37 AM [facility] Absolute 0.0 0.0 - 0.2 11/07/2018 [facility] Basophils 10e9/L 10:37 AM [facility] Abs Immature 0.0 0 - 0.4 11/07/2018 [facility] Granulocytes 10e9/L 10:37 AM [facility] Absolute 0.0 11/07/2018 [facility] Nucleated RBC 10:37 AM [facility] Ovalocytes Slight 11/07/2018 [facility] 10:37 AM [facility] Platelet Automated 11/07/2018 [facility] Estimate count 10:37 AM [facility] confirmed. [facility] Platelet morphology is normal. Specimen Anatomical Collection Method Collection Time Receive d Time (Source) Location / / Volume Laterality Blood specimen 11/07/2018 9:50 AM 019 (specimen) SOAP GRINDER 10:04 AM [facility] Gurwinder Godoy MD LAB - BLOOD ORDERABLES Performing Organization Address City/State/ZIP Code Phon e Number M [facility] [address] [address] [phone] [facility] [address] [address], U [phone] (ABNORMAL) Basic metabolic panel (11/07/2018 9:50 AM SOAP GRINDER) Analysis Performed At Patho logist Time Signature Sodium 147 (H) 133 - 144 11/07/2018 [facility] mmol/L 10:16 AM [facility] Potassium 4.1 3.4 - 5.3 11/07/2018 [facility] mmol/L 10:16 AM [facility] Chloride 117 (H) 94 - 109 11/07/2018 [facility] mmol/L 10:16 AM [facility] Carbon Dioxide 20 20 - 32 11/07/2018 [facility] mmol/L 10:23 AM [facility] Anion Gap 10 3 - 14 11/07/2018 [facility] mmol/L 10:23 AM [facility] Glucose 108 (H) 70 - 99 11/07/2018 [facility] mg/dL 10:23 AM [facility] Urea Nitrogen 23 7 - 30 11/07/2018 [facility] mg/dL 10:23 AM [facility] Creatinine 1.47 (H) 0.66 - 11/07/2018 [facility] 1.25 mg/dL 10:23 AM [facility] GFR Estimate 46 (L) >60 11/07/2018 [facility] mL/min/{1. 10:23 AM [facility] 73_m2} [facility] Comment: Non GFR Calc Starting 10/05/2018, serum creatinine ba sed estimated GFR (eGFR) will be calculated using the Chronic Kidney Dise [facility] Epidemiology Collaboration (CKD-EPI) equation. GFR Estimate If 53 (L) >60 mL/min/{1.73_m2} 11/07/2018 10 :23 AM [place] Comment: GFR Calc Starting 10/05/2018, serum creatinine ba sed estimated GFR (eGFR) will be calculated using the Chronic Kidney Dise [facility] Epidemiology Collaboration (CKD-EPI) equation. Calcium 8.2 (L) 8.5 - 10.1 mg/dL 11/07/2018 10:23 AM [facility] Specimen Anatomical Collection Method Collection Time Receive d Time (Source) Location / / Volume Laterality Blood specimen 11/07/2018 9:50 AM 019 (specimen) SOAP GRINDER 10:04 AM [facility] Gurwinder Godoy MD LAB - BLOOD ORDERABLES Performing Organization Address City/State/ZIP Code Phon e Number M [facility] [address] [address] [phone] [facility] [address] [address], U [phone] (ABNORMAL) Glucose by meter (11/07/2018 7:44 AM SOAP GRINDER) P athologist Signature Glucose 112 (H) 70 - 99 11/07/2018 [facility] mg/dL 7:56 AM SOAP GRINDER TEST, GLUCOSE Specimen Anatomical Collection Method Collection Time Receive d Time (Source) Location / / Volume Laterality 11/07/2018 7:44 AM 9 7:56 SOAP GRINDER AM SOAP GRINDER Juan Lewis MD LAB - BEFOUZIA POCT Performing Organization Address City/[facility]/ZIP Code Phon e Number [facility] POINT OF CARE TEST, GLUCOSE POINT OF CARE TEST, GLUCOSE (ABNORMAL) Glucose by meter (11/07/2018 3:49 AM SOAP GRINDER) P athologist Signature Glucose 105 (H) 70 - 99 11/07/2018 [facility] mg/dL 4:01 AM SOAP GRINDER TEST, GLUCOSE Specimen Anatomical Collection Method Collection Time Receive d Time (Source) Location / / Volume Laterality 11/07/2018 3:49 AM 9 4:01 SOAP GRINDER AM SOAP GRINDER Juan Lewis MD LAB - CAROLYN POCT Performing Organization Address City/[facility]/ZIP Code Phon e Number [facility] POINT OF CARE TEST, GLUCOSE POINT OF CARE TEST, GLUCOSE (ABNORMAL) Glucose by meter (11/07/2018 12:08 AM SOAP GRINDER) P athologist Signature Glucose 119 (H) 70 - 99 11/07/2018 [facility] mg/dL 12:19 AM SOAP GRINDER TEST, GLUCOSE Specimen Anatomical Collection Method Collection Time Receive d Time (Source) Location / / Volume Laterality 11/07/2018 12:08 11/07/2018 AM SOAP GRINDER 12:19 AM SOAP GRINDER Juan Lewis MD LAB - BEFOUZIA POCT Performing Organization Address City/State/ZIP Code Phon e Number [facility] POINT OF CARE TEST, GLUCOSE POINT OF CARE TEST, GLUCOSE (ABNORMAL) Glucose by meter (11/06/2018 7:53 PM SOAP GRINDER) P athologist Signature Glucose 116 (H) 70 - 99 11/06/2018 [facility] mg/dL 8:04 PM SOAP GRINDER TEST, GLUCOSE Specimen Anatomical Collection Method Collection Time Receive d Time (Source) Location / / Volume Laterality 11/06/2018 7:53 PM 9 8:04 SOAP GRINDER PM SOAP GRINDER Juan Elijah Debbie MD LAB - BEAKER POCT Performing Organization Address City/[facility]/ZIP Code Phon e Number [facility] POINT OF CARE TEST, GLUCOSE POINT OF CARE TEST, GLUCOSE (ABNORMAL) Glucose by meter (11/06/2018 11:02 AM SOAP GRINDER) P athologist Signature Glucose 109 (H) 70 - 99 11/06/2018 [facility] mg/dL 11:13 AM SOAP GRINDER TEST, GLUCOSE Specimen Anatomical Collection Method Collection Time Receive d Time (Source) Location / / Volume Laterality 11/06/2018 11:02 11/06/2018 AM SOAP GRINDER 11:13 AM SOAP GRINDER Juan Lewis MD LAB - BEAKER POCT Performing Organization Address City/[facility]/ZIP Code Phon e Number [facility] POINT OF CARE TEST, GLUCOSE POINT OF CARE TEST, GLUCOSE (ABNORMAL) Glucose by meter (11/06/2018 7:38 AM SOAP GRINDER) P athologist Signature Glucose 104 (H) 70 - 99 11/06/2018 [facility] mg/dL 7:50 AM SOAP GRINDER TEST, GLUCOSE Specimen Anatomical Collection Method Collection Time Receive d Time (Source) Location / / Volume Laterality 11/06/2018 7:38 AM 9 7:50 SOAP GRINDER AM SOAP GRINDER Juan YUAN - BEAKER POCT Performing Organization Address City/[facility]/ZIP Code Phon e Number [facility] POINT OF CARE TEST, GLUCOSE POINT OF CARE TEST, GLUCOSE Lactic acid whole blood (11/06/2018 4:15 AM SOAP GRINDER) P athologist Signature Lactic Acid 1.4 0.7 - 2.0 11/06/2018 [facility] mmol/L 4:[address] [facility] Specimen Anatomical Collection Method Collection Time Receive d Time (Source) Location / / Volume Laterality Blood specimen 11/06/2018 4:15 AM 019 4:25 (specimen) SOAP GRINDER AM SOAP GRINDER Bessy Mccray MD LAB - BLOOD ORDERABLES Performing Organization Address City/[facility]/ZIP [facility] Phon e Number M [facility] [address] [address] [facility] [address] [address], [place] [phone] (ABNORMAL) Basic metabolic panel (11/06/2018 4:15 AM SOAP GRINDER) Analysis Performed At Patho logist Time Signature [...] CENTER GFR Estimate 42 (L) >60 11/06/2018 [facility] mL/min/{1. 4:54 AM [facility] 73_m2} [facility] Comment: Non GFR Calc Starting 10/05/2018, serum creatinine ba sed estimated GFR (eGFR) will be calculated using the Chronic Kidney Dise [facility] Epidemiology Collaboration (CKD-EPI) equation. GFR Estimate If 49 (L) >60 mL/min/{1.73_m2} 11/06/2018 4: 54 AM [facility] Black [facility] Comment: GFR Calc Starting 10/05/2018, serum creatinine ba sed estimated GFR (eGFR) will be calculated using the Chronic Kidney Dise [facility] Epidemiology Collaboration (CKD-EPI) equation. Calcium 7.8 (L) 8.5 - 10.1 mg/dL 11/06/2018 4:54 AM [facility] Specimen Anatomical Collection Method Collection Time Receive d Time (Source) Location / / Volume Laterality Blood specimen 11/06/2018 4:15 AM 019 4:25 (specimen) SOAP GRINDER AM [facility] Bessy Mccray MD LAB - BLOOD ORDERABLES Performing Organization Address City/State/ZIP Code Phon e Number M [facility] [address] [place] [address] [facility] [address] [place] [address], [place] [phone] (ABNORMAL) CBC with platelets (11/06/2018 4:15 AM SOAP GRINDER) Analysis Performed At Patho logist Time Signature [...] specimen 11/06/2018 4:15 AM 019 4:25 (specimen) SOAP GRINDER AM SOAP GRINDER Bessy Mccray MD LAB - BLOOD ORDERABLES Performing Organization Address City/State/ZIP Code Phon e Number M [facility] [address] [place] [address] [facility] [address] [place] [address], [place] [phone] (ABNORMAL) Glucose by meter (11/06/2018 1:12 AM SOAP GRINDER) athologist Signature Glucose 126 (H) 70 - 99 11/06/2018 [facility] mg/dL 1:24 AM SOAP GRINDER TEST, GLUCOSE Specimen Anatomical Collection Method Collection Time Receive d Time (Source) Location / / Volume Laterality 11/06/2018 1:12 AM 9 1:24 SOAP GRINDER AM SOAP GRINDER Juan Lewis MD LAB - BEAKER POCT Performing Organization Address City/State/ZIP Code Phon e Number [facility] POINT OF CARE TEST, GLUCOSE POINT OF CARE TEST, GLUCOSE Methicillin Resist/Sens S. aureus PCR (11/05/2018 11:41 PM SOAP GRINDER) [facility] Method Time Signature Specimen Nares 11/05/2018 [facility] Description 11:[address] [facility] Methicillin Negative NEG^Negat 11/06/2018 [facility] Resist/Sens S. shin 2:36 AM [facility] MEDICAL aureus PCR [facility] Comment: MRSA Negative: SA Negative ??MRSA and St aphylococcus aureus target DNA not detected, presumed negative for MRSA and SA colonization or the number of bacteria present may be below the limit of detection for the assay. FDA approved assay performed using [employer]pert(R) real-time PCR. Specimen (Source) Anatomical Collection Method Collection Time Re ceived Time Location / / Volume Laterality Nasal structure 11/05/2018 11:41 11/06/19 19 (body structure) PM SOAP GRINDER Bessy Mccray MD LAB - MICRO GENERAL ORDERABL ES Performing Organization Address City/[facility]/ZIP Code Phon e Number [facility] [address] [place] [address] [facility] [address] [place] [address], U [phone] (ABNORMAL) Glucose by meter (11/05/2018 8:16 PM SOAP GRINDER) athologist Signature Glucose 128 (H) 70 - 99 11/05/2018 [facility] mg/dL 8:28 PM SOAP GRINDER TEST, GLUCOSE Specimen Anatomical Collection Method Collection Time Receive d Time (Source) Location / / Volume Laterality 11/05/2018 8:16 PM 9 8:28 SOAP GRINDER PM SOAP GRINDER Juan Lewis MD LAB - BEAKER POCT Performing Organization Address City/State/ZIP Code Phon e Number [facility] POINT OF CARE TEST, GLUCOSE POINT OF CARE TEST, GLUCOSE (ABNORMAL) Glucose by meter (11/05/2018 4:39 PM SOAP GRINDER) P athologist Signature Glucose 124 (H) 70 - 99 11/05/2018 [facility] mg/dL 4:50 PM SOAP GRINDER TEST, GLUCOSE Specimen Anatomical Collection Method Collection Time Receive d Time (Source) Location / / Volume Laterality 11/05/2018 4:39 PM 9 4:50 SOAP GRINDER PM SOAP GRINDER Juan Lewis MD LAB - BEAKER POCT Performing Organization Address City/State/ZIP Code Phon e Number [facility] POINT OF CARE TEST, GLUCOSE POINT OF CARE TEST, GLUCOSE (ABNORMAL) CBC with platelets (11/05/2018 4:35 PM SOAP GRINDER) Analysis Performed At Patho logist Time Signature [...] specimen 11/05/2018 4:35 PM 019 5:17 (specimen) SOAP GRINDER PM SOAP GRINDER Bessy Mccray MD LAB - BLOOD ORDERABLES Performing Organization Address City/State/ZIP Code Phon e Number M [facility] [address] [place] [address] 95 [phone] [facility] [address] [place] [address], [place] [phone] INR (11/05/2018 4:35 PM SOAP GRINDER) P athologist Signature INR 1.03 0.86 - 1.14 11/05/2018 [place] 5:[address] [facility] Specimen Anatomical Collection Method Collection Time Receive d Time (Source) Location / / Volume Laterality Blood specimen 11/05/2018 4:35 PM 019 5:17 (specimen) SOAP GRINDER PM SOAP GRINDER Bessy Mccray MD LAB - BLOOD ORDERABLES Performing Organization Address City/State/ZIP Code Phon e Number M [facility] [address] [place] [address] [phone] [facility] [address] [place] [address], [place] [phone] Lactic acid whole blood (11/05/2018 4:35 PM SOAP GRINDER) P athologist Signature Lactic Acid 1.0 0.7 - 2.0 11/05/2018 [place] mmol/L 5:[address] [facility] Specimen Anatomical Collection Method Collection Time Receive d Time (Source) Location / / Volume Laterality Blood specimen 11/05/2018 4:35 PM 019 5:18 (specimen) SOAP GRINDER PM SOAP GRINDER Bessy Mccray MD LAB - BLOOD ORDERABLES Performing Organization Address City/State/ZIP Code Phon e Number [facility] [address] [place] [address] 95 [phone] [facility] [address] [place] [address], [place] [phone] (ABNORMAL) Basic metabolic panel (11/05/2018 4:35 PM [facility]) Analysis Performed At Patho logist Time Signature Sodium 143 133 - 144 11/05/2018 [place] mmol/L 5:38 PM [facility] Potassium 4.3 3.4 - 5.3 11/05/2018 [facility] mmol/L 5:38 PM [facility] Chloride 113 (H) 94 - 109 11/05/2018 [facility] mmol/L 5:38 PM [facility] Carbon Dioxide 22 20 - 32 11/05/2018 [facility] mmol/L 5:43 PM [facility] Anion Gap 8 3 - 14 11/05/2018 [facility]/L 5:43 PM [facility] Glucose 121 (H) 70 - 99 11/05/2018 [place] mg/dL 5:43 PM [facility] Urea Nitrogen 24 7 - 30 11/05/2018 [place] mg/dL 5:43 PM [facility] Creatinine 1.30 (H) 0.66 - 11/05/2018 [facility] 1.25 mg/dL 5:43 PM [facility] GFR Estimate 53 (L) >60 11/05/2018 [place] mL/min/{1. 5:43 PM [facility] 73_m2} [facility] Comment: Non GFR Calc Starting 10/05/2018, serum creatinine ba sed estimated GFR (eGFR) will be calculated using the Chronic Kidney Dise [facility] Epidemiology Collaboration (CKD-EPI) equation. GFR Estimate If 61 >60 mL/min/{1.73_m2} 11/05/2018 5: 43 PM [facility] Comment: GFR Calc Starting 10/05/2018, serum creatinine ba sed estimated GFR (eGFR) will be calculated using the Chronic Kidney Dise [facility] Epidemiology Collaboration (CKD-EPI) equation. Calcium 8.6 8.5 - 10.1 mg/dL 11/05/2018 5:43 PM [facility] Specimen Anatomical Collection Method Collection Time Receive d Time (Source) Location / / Volume Laterality Blood specimen 11/05/2018 4:35 PM 019 5:17 (specimen) SOAP GRINDER PM [facility] Bessy Mccray MD LAB - BLOOD ORDERABLES Performing Organization Address City/State/ZIP Code Phon e Number [facility] [address], [place] [address] [facility] [address] [place] [address], U [phone] IR Thoracic Endovascular Stent Graft (11/05/2018 12:09 PM SOAP GRINDER) Anatomical Region Laterality Modality Chest Radio Fluoroscopy Specimen (Source) Anatomical Location Collection Method / Collectio n Time Received Time / Laterality Volume Impressions 11/06/2018 3:33 PM SOAP GRINDER IMPRESSION: Successful deployment in 2 components for [...] monitored closely during patient 's recovery. KANNAN STARKS MD Narrative 11/06/2018 3:33 PM SOAP GRINDER INTERVENTIONAL RADIOLOGY THORACIC ENDOVASCULAR STENT GRAFT ??11/05/2018 [...] Plan is for endovascular repair with Med [email or web address] Valiant Navion stent graft system. TECHNIQUE: Please [...] tion. Over a series of maneuvers, 6 Cambodian vascular sheath was placed. From left groin [...] are patent. No endoleak. Procedure Note Kannan Starks MD - 11/06/2018 INTERVENTIONAL RADIOLOGY THORACIC ENDOVA [...] tion. Over a series of maneuvers, 6 Cambodian vascular sheath was placed. From left groin access, angiogram was performed to confi rm iliac anatomy and passage of wires. Through each access, JULIANE 1 was used to navigate through the thoracic aorta, which was tortuous, ellie gh eventually able to advance to the [...] monitored closely during patient 's recovery. KANNAN STARKS MD Bessy Mccray MD IMG IR ORDERABLES IR Lumbar Drain Placement w Fluoro (11/05/2018 9:10 AM SOAP GRINDER) Anatomical Region Laterality Modality Spine Radio Fluoroscopy Specimen (Source) Anatomical Location Collection Method / Collectio n Time Received Time / Laterality Volume Narrative 11/05/2018 9:[address] [facility] INTERVENTIONAL NEURORADIOLOGY PROCEDURAL NOTE FLUOROSCOPICALLY GUIDED [...] codes included for physician referen ce only: 48530/05775 MISSAEL GARCIA MD Procedure Note Missael Garcia MD - 11/05/2018For matting of this note might be different from the original. [facility] INTERVENTIONAL NEURORADIOLOGY PROCEDURAL NOTE FLUOROSCOPICALLY GUIDED [...] codes included for physician referen ce only: [id number] MISSAEL GARCIA MD Butch Brown MD IMG IR ORDERABLES EKG 12-lead, tracing only (11/05/2018 6:58 AM SOAP GRINDER) [facility] gist Method Time Signature Interpretation ECG Click View RADIOLOGY Image link RESULTS to view waveform and result Specimen (Source) Anatomical Collection Method Collection Time Re ceived Time Location / / Volume Laterality 11/05/2018 6:58 AM SOAP GRINDER Juan Lewis MD ECG ORDERABLES Performing Organization Address City/State/ZIP Code Phon e Number RADIOLOGY RESULTS Potassium (11/05/2018 6:55 AM SOAP GRINDER) P athologist Signature Potassium 4.3 3.4 - 5.3 11/05/2018 [place] mmol/L 7:15 AM [facility] Specimen Anatomical Collection Method Collection Time Receive d Time (Source) Location / / Volume Laterality Blood specimen 11/05/2018 6:55 AM 019 6:56 (specimen) SOAP GRINDER AM SOAP GRINDER Zakia Tobin MD LAB - BLOOD ORDERABLES Performing Organization Address City/State/ZIP Code Phon e Number [facility] [address] [place] [address] [facility] [address] [place] [address], [place] [phone] Lipid panel (11/05/2018 6:55 AM SOAP GRINDER) Analysis Performed At Patho logist Time Signature [...] Cholesterol 69 <130 mg/dL 11/05/2018 7:23 AM [facility] Specimen Anatomical Collection Method Collection Time Receive d Time (Source) Location / / Volume Laterality Blood specimen 11/05/2018 6:55 AM 019 6:56 (specimen) SOAP GRINDER AM SOAP GRINDER Juan Lewis MD LAB - BLOOD ORDERABLES Performing Organization Address City/State/ZIP Code Phon e Number [facility] [address] [place] [address] [facility] [facility] [address] [place] [address], [place] [phone] Hemoglobin A1c (11/05/2018 6:55 AM SOAP GRINDER) athologist Signature Hemoglobin A1C 5.2 0 - 5.6 % 11/05/2018 [place] 7:30 AM [facility] Comment: Normal <5.7% Prediabetes 5.7-6.4% ??Diab etes 6.5% or higher - adopted from ADA consensus guidelines. Specimen Anatomical Collection Method Collection Time Receive d Time (Source) Location / / Volume Laterality Blood specimen 11/05/2018 6:55 AM 019 6:56 (specimen) SOAP GRINDER AM SOAP GRINDER Juan Lewis MD LAB - BLOOD ORDERABLES Performing Organization Address City/State/ZIP Code Phon e Number M [facility] [address] [id number] [phone] [facility] [address] [address], [place] [phone] (ABNORMAL) Creatinine (11/05/2018 6:55 AM SOAP GRINDER) athologist Signature Creatinine 1.52 (H) 0.66 - 11/05/2018 [place] 1.25 mg/dL 7:20 AM [facility] GFR Estimate 44 (L) >60 11/05/2018 [place] mL/min/{1. 7:20 AM [facility] 73_m2} [facility] Comment: Non GFR Calc Starting 10/05/2018, serum creatinine ba sed estimated GFR (eGFR) will be calculated using the Chronic Kidney Dise [facility] Epidemiology Collaboration (CKD-EPI) equation. GFR Estimate If 51 (L) >60 mL/min/{1.73_m2} 11/05/2018 7: 20 AM [place] Black [facility] Comment: GFR Calc Starting 10/05/2018, serum creatinine ba sed estimated GFR (eGFR) will be calculated using the Chronic Kidney Dise [facility] Epidemiology Collaboration (CKD-EPI) equation. Specimen Anatomical Collection Method Collection Time Receive d Time (Source) Location / / Volume Laterality Blood specimen 11/05/2018 6:55 AM 019 6:56 (specimen) SOAP GRINDER AM SOAP GRINDER Juan Lewis MD LAB - BLOOD ORDERABLES Performing Organization Address City/State/ZIP Code Phon e Number M [facility] [address] [phone] [facility] [address] [address], [facility] [phone] XR Chest Port 1 View (11/05/2018 6:40 AM SOAP GRINDER) Anatomical Region Laterality Modality Chest Digital Radiography Specimen (Source) Anatomical Location Collection Method / Collectio n Time Received Time / Laterality Volume Impressions 11/05/2018 6:58 AM SOAP GRINDER IMPRESSION: No acute abnormality. TORI SANTIZO MD Narrative 11/05/2018 6:58 AM SOAP GRINDER XR CHEST PORTABLE 1 VIEW ?? 11/05/2018 [...] CARDIAC - HIM SCAN (09/24/2018 12:00 AM SOAP GRINDER) Specimen (Source) Anatomical Location Collection Method / Collectio n Time Received Time / Laterality Volume 09/24/2018 Narrative This result has an attachment that is no t available. 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 - Primary Thoracic aneurysm without mention of rup ture Descending thoracic aortic aneurysm Thoracic aneurysm without mention of rup ture Thoracic aortic aneurysm Thoracic aneurysm without mention of rup ture documented in this encounter Admitting Diagnoses Diagnosis Thoracic aortic aneurysm Thoracic aneurysm without mention of rup ture documented in this encounter Administered Medications Inactive Administered Medications - up to 3 most recent administrations Medication Order MAR Action Action Date Dose Rate Site acetaminophen (TYLENOL) 325 MG tablet Starting on Thu11/05/18 at 1828, For 1 d william Danette Peck : cabinet override Maximum acetaminophen dose from all sources = 75 mg/kg /day not to exceed 4 grams/day. acetaminophen (TYLENOL) tablet 975 mg Given 11/08/2018 11:04 PM SOAP GRINDER 975 mg 975 mg, Oral, EVERY 6 HOURS PRN, mild pain, fever, Starting on Thu11/05/18 at 1827, Maximum acetaminophen dose from all sources = 75 mg/kg/day not to exceed 4 grams/day. Given 11/08/2018 12:37 PM SOAP GRINDER 975 mg Given 11/07/2018 11:03 AM SOAP GRINDER 975 mg alum & mag hydroxide-simethicone (MYLANTA Given 11/08/2018 2:48 AM SOAP GRINDER 30 mLs ES/MAALOX ES) suspension 30 mL 30 mL, Oral, EVERY 4 HOURS PRN, indigestion, Starting on Thu11/05/18 at 1510, Shake well. apixaban ANTICOAGULANT (ELIQUIS) tablet 2.5 Given 10/20 12:04 PM SOAP GRINDER 2.5 mg mg 2.5 mg, Oral, 2 TIMES DAILY, First dose on Thu11/09/18 at 1115 atorvastatin (LIPITOR) tablet 40 mg Given 11/08/2018 8:20 PM SOAP GRINDER 40 mg 40 mg, Oral, EVERY EVENING, First dose on Thu11/05/18 at 2000 Given 11/07/2018 7:49 PM SOAP GRINDER 40 mg Given 11/06/2018 9:16 PM SOAP GRINDER 40 mg calcium carbonate (TUMS) chewable tablet Given 11/07/2018 10 :34 PM SOAP GRINDER 1,000 mg 1,000 mg 1,000 mg, Oral, EVERY 2 HOURS PRN, heartburn, Starting on Thu11/06/18 at 0408, Do not give if calcium level greater than 10 mg/dL. Given 11/07/2018 12:05 AM SOAP GRINDER 1,000 mg Given 11/06/2018 4:50 AM SOAP GRINDER 1,000 mg clindamycin (CLEOCIN) infusion 900 New Bag 11/06/2018 2:05 AM SOAP GRINDER 900 mg 50 mL/hr mg Routine, 900 mg, Intravenous, EVERY 8 HOURS, First dose on Thu11/05/18 at 1800, For 2 doses, Indications: Perioperative Pharmacoprophylaxis, Post-procedure New Bag 11/05/2018 6:08 PM SOAP GRINDER 900 mg 50 mL/hr cyclobenzaprine (FLEXERIL) tablet 5-10 m g Given 11/08/2018 3:58 AM SOAP GRINDER 10 mg 5-10 mg, Oral, 3 TIMES DAILY PRN, muscle spasms, Starting on Thu11/07/18 at 1153 Given 11/07/2018 2:26 PM SOAP GRINDER 5 mg dextrose 5% and 0.45% NaCl infusion New Bag 11/08/2018 6:44 PM SOAP GRINDER 75 mL/hr at 75 mL/hr, Intravenous, CONTINUOUS, Starting on Thu11/07/18 at 1200, Until Thu11/09/18 at 0731 Restarted 11/08/2018 4:21 PM SOAP GRINDER 75 mL/hr New Bag 11/08/2018 7:35 AM SOAP GRINDER 100 mL/hr diphenhydrAMINE (BENADRYL) injection 12. 5 mg 12.5 mg, Intravenous, EVERY 6 HOURS PRN, itching, Only give if patient unable to take PO., Starting on Thu11/05/18 at 151 0, Caution to be used when administering multiple SENIOR SAFETY MANAGEMENT CONSULTANT depressing meds within a sh ort time frame. For ordered IV doses 1-50 mg, give IV Push undiluted. Give each 25 mg over a minimum of 1 minute. Extend in non-emergency diphenhydrAMINE (BENADRYL) solution 12.5 mg 12.5 mg, Oral, EVERY 6 HOURS PRN, itchin g, Starting on Thu11/05/18 at 1510, Caution to be used when administering multiple SENIOR SAFETY MANAGEMENT CONSULTANT depressing meds within a short time frame. fentaNYL (PF) (SUBLIMAZE) 100 MCG/2ML in jection Starting on Thu11/05/18 at 0841, For 1 d william, Gwen Rivas : cabinet override For ordered IV doses 1-100 mcg give IV Push undiluted over a minimum of 3-5 minutes. fentaNYL (PF) (SUBLIMAZE) injection 100 mcg Given 11/05/2018 7:45 AM SOAP GRINDER 50 mcg 100 mcg, Intravenous, ONCE, Administer over 3-5 Minutes, On Thu11/05/18 at 0745, For 1 dose, For ordered IV doses 1-100 mcg give IV Push undiluted over a minimum of 3-5 minutes., Pre-procedure Given 11/05/2018 7:31 AM SOAP GRINDER 50 mcg fentaNYL (PF) (SUBLIMAZE) injection 25-5 0 mcg Given 11/05/2018 8:48 AM SOAP GRINDER 50 mcg 25-50 mcg, Intravenous, EVERY 5 [...] 50 m cg Given 11/05/2018 1:33 PM SOAP GRINDER 50 mcg 50 mcg, Intravenous, EVERY 5 MIN PRN, moderate to severe pain, Administer over 3-5 Minutes, Starting on Thu11/05/18 at 1333, For ordered IV doses 1-100 mcg give IV Push undiluted over a minimum of 3-5 minutes., PACU hydrALAZINE (APRESOLINE) injection 10-20 mg Given 11/08/2018 7:03 PM SOAP GRINDER 10 mg 10-20 mg, Intravenous, EVERY 1 [...] over 1 minute. Given 11/08/2018 11:51 AM SOAP GRINDER 20 mg Given 11/08/2018 3:36 AM SOAP GRINDER 20 mg labetalol (NORMODYNE/TRANDATE) 5 MG/ML i njection Starting on Thu11/05/18 at 1521, For 1 d ose, Leiviska, Danette : cabinet override For ordered doses up to 80 mg, give IV Push undiluted. Give each 20 mg over 2 minutes. labetalol (NORMODYNE/TRANDATE) injection 10 mg Given 11/05/2018 3:43 PM SOAP GRINDER 10 mg 10 mg, Intravenous, EVERY 10 [...] 2 minutes., Post-procedure Given 11/05/2018 3:25 PM SOAP GRINDER 10 mg labetalol (NORMODYNE/TRANDATE) injection 10 mg Given 11/05/2018 1:45 PM SOAP GRINDER 10 mg 10 mg, Intravenous, ONCE, Administer over 2-8 Minutes, On Thu11/05/18 at 1400, For 1 dose, For ordered doses up to 80 mg, give IV Push undiluted. Give each 20 mg over 2 minutes., PACU labetalol (NORMODYNE/TRANDATE) injection 10-20 Given 0 11/08/2018 3:03 AM SOAP GRINDER 10 mg mg 10-20 mg, Intravenous, EVERY [...] over 2 minutes. Given 11/08/2018 2:33 AM SOAP GRINDER 20 mg Given 11/07/2018 10:35 PM SOAP GRINDER 10 mg labetalol (NORMODYNE/TRANDATE) injection 20 Given 11/05/2018 12:37 PM SOAP GRINDER 10 mg mg 20 mg, Intravenous, ONCE, Administer over 2-8 Minutes, On Thu11/05/18 at 1315, For 1 dose, For ordered doses up to 80 mg, give IV Push undiluted. Give each 20 mg over 2 minutes., Pre-procedure labetalol (NORMODYNE/TRANDATE) injection 5 mg Given 11/05/2018 1:13 PM SOAP GRINDER 5 mg 5 mg, Intravenous, ONCE, Administer over 2-8 Minutes, On Thu11/05/18 at 1315, For 1 dose, For ordered doses up to 80 mg, give IV Push undiluted. Give each 20 mg over 2 minutes., PACU lactated ringers infusion New Bag 11/05/2018 6:52 AM SOAP GRINDER 25 mL/hr at 25 mL/hr, Intravenous, CONTINUOUS, IF patient NOT on dialysis., Pre-procedure, Starting on Thu11/05/18 at 0645, Until Thu11/05/18 at 0836 lidocaine 1 % 1 mL Given 11/05/2018 6:53 AM SOAP GRINDER 0.3 mLs 1 mL, Other, EVERY 1 [...] 2 5 mg Given 11/08/2018 8:22 AM SOAP GRINDER 25 mg 25 mg, Oral, 2 TIMES DAILY, First dose (after last modification) on Thu11/05/18 at 1615 Given 11/07/2018 7:49 PM SOAP GRINDER 25 mg Given 11/07/2018 11:14 AM SOAP GRINDER 25 mg metoprolol tartrate (LOPRESSOR) tablet 5 0 mg Given 11/09/2018 8:28 AM SOAP GRINDER 50 mg 50 mg, Oral, 2 TIMES DAILY, First dose on Thu11/08/18 at 2100, Hold for SBP < 90, HR < 50 Given 11/08/2018 8:20 PM SOAP GRINDER 50 mg midazolam (VERSED) 1 MG/ML injection Starting on Thu11/05/18 at 0841, For 1 d Rob thomas Callie : cabinet override For ordered IV doses 0.1-2.5 mg give IV Push slowly titrat ed over a minimum of 2 minutes. Dilute each 1mg in 4mL of NS. midazolam (VERSED) injection 0.5-1 mg Given 11/05/2018 8:48 AM SOAP GRINDER 1 mg 0.5-1 mg, Intravenous, Administer over [...] injection 4 mg Given 11/05/2018 7:53 AM SOAP GRINDER 1 mg 4 mg, Intravenous, Administer over 2 Minutes, EVERY 4 MIN PRN, anxiety, Starting on Thu11/05/18 at 0732, For ordered IV doses 0.1-2.5 mg give IV Push slowly titrated over a minimum of 2 minutes. Dilute each 1mg in 4mL of NS., Pre-procedure Given 11/05/2018 7:49 AM SOAP GRINDER 1 mg Given 11/05/2018 7:38 AM SOAP GRINDER 1 mg omeprazole (priLOSEC) CR capsule 20 mg Given 11/09/2018 6:33 AM SOAP GRINDER 20 mg 20 mg, Oral, EVERY MORNING BEFORE BREAKFAST, First dose on Thu11/07/18 at 2345 Given 11/08/2018 8:22 AM SOAP GRINDER 20 mg Given 11/07/2018 11:48 PM SOAP GRINDER 20 mg ondansetron (ZOFRAN) injection 4 mg Given 11/07/2018 11:48 PM SOAP GRINDER 4 mg 4 mg, Intravenous, EVERY 6 [...] half-tab 2.5-5 mg Given 11/08/2018 12:37 PM SOAP GRINDER 5 mg 2.5-5 mg, Oral, EVERY 4 HOURS PRN, moderate to severe pain, Starting on Thu11/05/18 at 1724 Given 11/08/2018 6:19 AM SOAP GRINDER 5 mg Given 11/07/2018 7:49 PM SOAP GRINDER 5 mg phenylephrine Rate/Dose Change 11/06/2018 6:45 0.3 mcg/kg/min 7.6 mL/ hr (OSIEL-SYNEPHRINE) 50 mg PM SOAP GRINDER in sodium chloride 0.9 % 250 mL [...] goals. Vesicant. Rate/Dose Change 11/06/2018 6:15 PM SOAP GRINDER 0.5 mcg/kg/min 12.6 mL/hr Rate/Dose Change 11/06/2018 5:34 PM SOAP GRINDER 0.7 mcg/kg/min 17.7 mL/hr sennosides (SENOKOT) tablet 8.6 mg Given 11/08/2018 3:36 AM SOAP GRINDER 8.6 mg 8.6 mg, Oral, 2 TIMES DAILY PRN, constipation, Starting on Thu11/08/18 at 0250 sodium chloride (PF) 0.9% PF flush 3 mL Given 11/07/2018 4:12 PM SOAP GRINDER 3 mLs 3 mL, Intracatheter, EVERY 8 HOURS, First dose on Thu11/05/18 at 1515, And Q1H PRN, to lock peripheral IV dormant line. Given 11/07/2018 11:34 AM SOAP GRINDER 3 mLs Given 11/07/2018 12:06 AM SOAP GRINDER 10 mLs sodium chloride 0.9% infusion New Bag 11/06/2018 7:48 PM SOAP GRINDER 100 mL/hr at 100 mL/hr, Intravenous, CONTINUOUS, For patient on renal dialysis. Saline lock after 1 liter if taking PO fluids., Post-procedure, Starting on Thu11/05/18 at 1515, Until Thu11/08/18 at 1245 New Bag 11/06/2018 12:08 PM SOAP GRINDER 100 mL/hr New Bag 11/06/2018 2:33 AM SOAP GRINDER 100 mL/hr terazosin (HYTRIN) capsule 5 mg Given 11/08/2018 9:21 PM SOAP GRINDER 5 mg 5 mg, Oral, AT BEDTIME, First dose on Thu11/05/18 at 2200 documented in this encounter Active and Recently Administered Medications Times are shown in SOAP GRINDER. Scheduled Medication Order 11/07/2018 11/08/2018 11/09/2018 apixaban ANTICOAGULANT (ELIQUIS) tablet 2.5 mg 1204 (Given - Provider: Kiki Traylor RN) 2.5 mg, Oral, 2 TIMES DAILY, First dose on Thu11/09/18 at 1115 atorvastatin (LIPITOR) tablet 40 mg 1949 (Given - Provider: Kristy Castañeda RN) 2020 (Given - Provider: Maria C Dunbar RN) [...] ) 1114 (Given - Provider: Danette Peck RN)194 (Given - Provider: Kristy Castañeda RN)2054 (Canceled Entry - Provider: Kristy Castañeda RN) 0822 (Given - Provider: Auar Crooks, JOSE) 25 mg, Oral, 2 TIMES DAILY, First [...] EVERY MORNING BEFORE BREAKFAST, First dose on S 11/07/18 at 2345 sodium bicarbonate tablet 650 mg 222 (Not Given - Pro vider: Kristy Castañeda [...] Danette Peck RN)1612 (Given - Provider: Aura Crooks RN)2222 (Not Given - Provider: Kristy Castañeda RN - Reason: IV Infusing) 0658 (Not Given - Provider: Kristy Castañeda RN - Reason: IV Infusing)1627 (Not Given - Provider: Aura Crooks RN - Reason: IV Infusing) 0048 (Not Given - Provider: Maria C Dunbar RN - Reason: IV Infusing)0855 (Not Given - Provider: Kiki Traylor RN - Reason: Loss of IV access) 3 mL, Intracatheter, EVERY 8 HOURS, Firs t dose on Thu11/05/18 at 1515, And Q1H PRN, to lock peripheral IV dormant line. terazosin (HYTRIN) capsule 5 mg 2222 (Not Given - Prov ider: Kristy Castañeda RN - Reason: NPO) 2121 (Given - Provider: Maria C Dunbar RN) 5 mg, Oral, AT BEDTIME, First dose on Thu11/05/18 at 2200 Continuous Medication Order 11/07/2018 11/08/2018 11/09/2018 dextrose 5% and 0.45% NaCl infusion (CANCELED) 1426 (N ew Bag - Provider: Danette Peck RN)1535 (Rate/Dose Verify - Provider: Aura Crooks, JOSE)2330 (New Bag - Provider: Kristy Castañeda RN) 0735 (New Bag - Provider: Aura Crooks , JOSE)1400 (Stopped - Provider: Aura Crooks, JOSE)1621 (Restarted - Provider: Aura Crooks, RN)1844 (New Bag - Provider: Misty Villalobos RN) at 75 mL/hr, Intravenous, CONTINUOUS, [facility] 11/07/18 at 1200, Until Thu11/09/18 at 0731 PRN [...] Ramiro Lozano RN)1103 (Given - Provider: Danette Peck, JOSE) 1237 (Given - Provider: Aura Crooks, JOSE)2304 (Given - Provider: Maria C Dunbar RN) [...] Lozano RN)2234 (Given - Provider: Kristy Castañeda, RN) 1,000 mg, Oral, EVERY 2 HOURS PRN, heart burn, Starting 11/06/18 at 0408, Do not give if calcium level greater than 10 mg/dL. cyclobenzaprine (FLEXERIL) tablet 5-10 mg 1426 (Given - Provider: Dnaette Peck RN) 0358 (Given - Provider: Kristy Castañeda, JOSE) 5-10 mg, Oral, 3 TIMES DAILY PRN, muscle spasms, Starting Sun at 1153 diphenhydrAMINE (BENADRYL) injection 12.5 mg(Linked Group 1) 12.5 mg, Intravenous, EVERY 6 HOURS PRN, itching, Only give if patient unable to take PO., Starting 11/05/18 at 1510, Caution to be used when administering multiple SENIOR SAFETY MANAGEMENT CONSULTANT depressing meds within a short time frame. For ordered IV doses 1-50 m g, give IV Push undiluted. Give each 25mg over a minimum of 1 minute. Extend in non-emergency diphenhydrAMINE (BENADRYL) solution 12.5 mg(Linked Group 1) 12.5 mg, Oral, EVERY 6 HOURS PRN, itchin g, Starting 11/05/18 at 1510, Caution to be used when administering multiple SENIOR SAFETY MANAGEMENT CONSULTANT depressing meds within a short time frame. hydrALAZINE (APRESOLINE) injection 10-20 mg 0155 (Give n - Provider: Ramiro Lozano RN)0343 (Given - Provider: Ramiro Lozano RN)1053 (Given - Provider: Danette Peck RN) 0336 (Given - Provider: Kristy Castañeda RN )1151 (Given - Provider: Aura Crooks, JOSE)1903 (Given - Provider: Misty Villalobos RN) 10-20 [...] Ramiro Lozano RN)0419 (Given - Provider: Ramiro Lozano, JOSE)0758 (Given - Provider: Danette Peck RN)0939 (Given - Provider: Danette Peck RN)1014 (Given - Provider: Danette Peck RN) 0233 (Given - Provider: Kristy Castañeda, JOSE)0303 [...] mg 0456 (Give n - Provider: Ramiro Lozano, JOSE)1009 (Given - Provider: Danette Peck, JOSE)1530 (Given - Provider: Aura Crooks, JOSE)1949 (Given - Provider: Kristy Castañeda, JOSE) 0619 (Given - Provider: Kristy Castañeda, JOSE)1237 [...] to be used when administering multiple SENIOR SAFETY MANAGEMENT CONSULTANT depressing meds within a short time frame.
Or diphenhydrAMINE (BENADRYL) injection 12.5 mgJump to med 12.5 mg, Intravenous, EVERY 6 HOURS PRN, itching, Only give if patient unable to take PO., Starting 11/05/18 at 1510
Caution to be used when administering multiple SENIOR SAFETY MANAGEMENT CONSULTANT depressing meds within a short time frame. [...] usea, vomiting, Administer over 2-5 Minutes, Starting 11/05/18 at 1510
This is Step [...] documented as of this encounter Care Teams Contract Law Specialist Relationship Specialty Start Date End Date Clinic, [facility] PCP - General 05/12/[address] [place] [id number] documented as of this encounter
--- OUTSIDE RECORDS SUMMARY | 2022-07-17 13:55 | XMS_ITS | Encounter Summary ---
:1940 Author Organization [facility] Address [facility] [place] [address] Care Team Providers Name Role Phone Clinic, [facility] Primary Care Provider [phone] Reason for Visit Reason Onset Date Comments Clinic Care Coordination - Follow-up 10/01/2018 Encounter Details Date Type Department Care Team Description 10/01/2018 Telephone [facility] C are Coordination Vascular Clinic Félix Nava MD - Follow-up [id number] [id number] [address] [place] [address] [phone] Social History Tobacco Use Types Packs/Day Years [...] for any further questions. SHASTA Winkler, RN [employer]RA [employer]TER Telephone Encounter - Sondra Johnson RN - [...] appointment with Dr. Lewis. SHASTA Winkler, RN ARA [employer]TER Telephone Encounter - Sondra Johnson RN - 10/01/2018 1:[address] Lewis's request, contact pt's daughter Raquel with an update on care plan. Raquel updated that Dr. Lewis will contact her on Thursday with a new plan for her dad. Raquel was in agreement with this plan. SHASTA Winkler, RN ARA [employer]TER documented in this encounter Plan of Treatment Not on filedocumented as of this encounter Visit Diagnoses Not on filedocumented in this encounter Care Teams Coding Compliance Specialist Relationship Specialty Start Date End Date Kehinde Portillofield PCP - General 05/12/[address] [place] [id number] documented as of this encounter
--- OUTSIDE RECORDS SUMMARY | 2022-07-17 13:55 | XMS_ITS | Encounter Summary ---
:1940 Author Organization [place] Address [address] [facility] 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 Periop Services Procedures ENDOVASCULAR REPAIR ANEURYSM THORACIC AORTIC [address], [address] [place] [address] Phone: Referral ID Status Reason Start Date Expiration Date Visits Requ ested Visits Authorized [id number] 1 1 Encounter Details Date Type Department Care Team Description 11/03/2018 Hospital Encounter [facility] Juan Lewis En counter for [facility] MD Elijah pre-operative [address] [place] [address] [address] [place] [address] Social History Tobacco Use Types Packs/Day Years [...] aneurysm 4 hours as needed without rupture for moderate to severe pain sodium bicarbonate 650 MG Take 650 mg by 0 tablet mouth At Bedtime terazosin (HYTRIN) 5 MG Take 5 mg by mouth 0 capsule At Bedtime METOPROLOL TARTRATE PO Take 50 mg by mouth 0 11/05/2018 2 times daily. Acetaminophen (TYLENOL PO) Take 500 mg by [...] AM Encounter for Resul ts for this HITCH TECHNICIAN pre-operative procedure are in laboratory testing the resul ts section. BLOOD COMPONENT Routine 11/03/2018 9:10 AM Encounter for Resul ts for this HITCH TECHNICIAN pre-operative procedure are in laboratory testing the resul ts section. BLOOD COMPONENT Routine 11/03/2018 9:10 AM Encounter for Resul ts for this HITCH TECHNICIAN pre-operative procedure are in laboratory testing the resul ts section. BLOOD COMPONENT Routine 11/03/2018 9:10 AM Encounter for Resul ts for this HITCH TECHNICIAN pre-operative procedure are in laboratory testing the resul ts section. ABO/RH TYPE AND Routine 11/03/2018 9:10 AM Encounter for Resul ts for this SCREEN HITCH TECHNICIAN pre-operative procedure are in laboratory testing the resul ts section. documented in this encounter Results Blood component (11/03/2018 9:10 AM HITCH TECHNICIAN) [facility] Method Time Signature Unit Number [id number] 11/05/2018 [facility] 7:55 AM [facility] Blood Red Blood Cells 11/05/2018 [facility] Component LeukoReduced 7:55 AM [facility] Division 00 11/05/2018 [facility] Number 7:55 AM [facility] Status of No longer 11/07/2018 [facility] Unit available 3:00 AM [facility] 11/07/[address] [facility] Blood Product [id number] 11/05/2018 [facility] Code 7:55 AM [facility] Unit Status RET [facility] Specimen Anatomical Collection Method Collection Time Receive d Time (Source) Location / / Volume Laterality 11/03/2018 9:10 AM 9 9:19 HITCH TECHNICIAN AM HITCH TECHNICIAN Juan Lewis MD LABORATORY Performing Organization Address City/State/ZIP Code Phon e Number M [facility] [address], [place] [address] [facility] [address] [place] [place] [address], [facility] [phone] [facility] [address] [place], [place] [address], [facility] [phone] Blood component (11/03/2018 9:10 AM HITCH TECHNICIAN) Patholo gist Method Time Signature Unit Number [id number] 11/05/2018 [facility] 7:55 AM [facility] Blood Red Blood 11/05/2018 [facility] Component Cells 7:55 AM [facility] Reduced Division 00 11/05/2018 [facility] Number 7:55 AM [facility] Status of No longer 11/07/2018 [facility] Unit available 3:00 AM [facility] 11/07/2018 HOSPITAL 0300 Blood Product [id number] 11/05/2018 [facility] Code 7:55 AM [facility] Unit Status RET [facility] Specimen Anatomical Collection Method Collection Time Receive d Time (Source) Location / / Volume Laterality 11/03/2018 9:10 AM 9 9:19 HITCH TECHNICIAN AM HITCH TECHNICIAN Juan Lewis MD LABORATORY Performing Organization Address City/State/ZIP Code Phon e Number M [facility] [address], [place] [address] [place] [phone] [place] [address], [facility] [address], [place] [address], [facility] [phone] Blood component (11/03/2018 9:10 AM HITCH TECHNICIAN) [facility] Adstrix Method Time Signature Unit Number [id number] 11/03/2018 [facility] 10:39 AM [facility] Blood Red Blood 11/03/2018 [facility] Component Cells 10:39 AM [facility] Reduced Division 00 11/03/2018 [facility] Number 10:39 AM [facility] Status of No longer 11/07/2018 [facility] Unit available 3:00 AM [facility] 11/07/2018 HOSPITAL 0300 Blood Product [id number] 11/03/2018 [facility] Code 10:39 AM [facility] Unit Status RET [facility] Specimen Anatomical Collection Method Collection Time Receive d Time (Source) Location / / Volume Laterality 11/03/2018 9:10 AM 9 9:19 HITCH TECHNICIAN AM HITCH TECHNICIAN Juan Lewis MD LABORATORY Performing Organization Address City/State/ZIP Code Phon e Number M [facility] [address], [place] [address] [facility] [address] [place] [address], [facility] [place] [address] [address], [place] [address], [facility] [phone] Blood component (11/03/2018 9:10 AM HITCH TECHNICIAN) [facility] Adstrix Method Time Signature Unit Number [id number] 11/03/2018 [facility] 10:39 AM [facility] Blood Red Blood 11/03/2018 [facility] Component Cells 10:39 AM [facility] HOSPITAL Reduced Division 00 11/03/2018 [facility] Number 10:39 AM [facility] Status of No longer 11/07/2018 [facility] Unit available 3:00 AM [facility] 11/07/2018 HOSPITAL 0300 Blood Product [id number] 11/03/2018 [facility] Code 10:39 AM [facility] Unit Status RET [facility] Specimen Anatomical Collection Method Collection Time Receive d Time (Source) Location / / Volume Laterality 11/03/2018 9:10 AM 9 9:19 HITCH TECHNICIAN AM HITCH TECHNICIAN Juan Lewis MD LABORATORY Performing Organization Address City/State/ZIP Code Phon e Number M [facility] [address], [place] [address] [facility] [address] [place] [address], [facility] [address] [place], [place] [address], [facility] [phone] (ABNORMAL) ABO/Rh type and screen (11/03/2018 9:10 AM HITCH TECHNICIAN) [facility] Adstrix Method Time Signature Units Ordered 4 11/05/2018 [facility] 1:30 PM [facility] ABO O 11/03/2018 [facility] 10:15 AM [facility] RH(D) Pos [facility] Antibody Pos (A) 11/03/2018 [facility] Screen 10:15 AM [facility] Test Valid [place] 11/03/2018 [place] Only At [facility] 9:31 AM HITCH TECHNICIAN [facility] Specimen 11/06/2018 11/03/2018 [place] Expires 9:31 AM [facility] Crossmatch Red Blood 11/03/2018 [place] Cells 9:31 AM [facility] Specimen Anatomical Collection Method Collection Time Receive d Time (Source) Location / / Volume Laterality Blood specimen 11/03/2018 9:10 AM 019 9:19 (specimen) HITCH TECHNICIAN AM HITCH TECHNICIAN Juan Lewis MD LAB - BLOOD BANK TEST ORDER Performing Organization Address City/State/ZIP Code Phon e Number M [facility] [address] [place] [place] [address] [facility] [address] [place] [place] [address], [facility] [phone] documented in this encounter Visit Diagnoses Diagnosis Encounter for pre-operative laboratory t esting Preoperative examination, unspecified documented in this encounter Care Teams Secondary English Teacher Relationship Specialty Start Date End Date [facility] P[facility] - General 05/12/[address] [place] [address] documented as of this encounter
--- OUTSIDE RECORDS SUMMARY | 2022-07-17 13:55 | XMS_ITS | Encounter Summary ---
:1940 Author Organization [place] Address [address] [place] [address]. [place] [address] Care Team Providers Name Role Phone [facility], [facility] Primary Care Provider [phone] Reason for Referral Diagnostic Imaging CT Scan - Closed Specialty Diagnoses / Procedures Referred By Contact Refer red To Contact Diagnoses Abdominal aortic aneurysm Juan Lewis MD Procedures CTA Abdomen Pelvis with Contrast [address] [place] [address] Referral ID Status Reason Start Date Expiration Date Visits Requ ested Visits Authorized [id number] Closed 06/03/2018 06/03/2019 1 1 Encounter Details Date Type Department Care Team Description 06/03/2018 [facility] Only [facility] Juan Lewis Abdompepe l aortic Vascular Clinic Félix Nava MD aneurysm (H) (Primary [address] Dx ) [address] [place] [address] [place] [id number] Social History Tobacco Use Types Packs/Day Years [...] encounter Visit Diagnoses Diagnosis Abdominal aortic aneurysm - Primary Abdominal aneurysm without mention of ru pture Abdominal aortic aneurysm Abdominal aneurysm without mention of ru pture documented in this encounter Care Teams Cleat Maker Relationship Specialty Start Date End Date Clinic, Kehinde Santos PCP - General 05/12/[address] [place] [phone] documented as of this encounter
--- OUTSIDE RECORDS SUMMARY | 2022-07-17 13:55 | XMS_ITS | Encounter Summary ---
:1940 Author Organization [place] Address [facility] [place] [address] Care Team Providers Name Role Phone [facility], [facility] Primary Care Provider [phone] Encounter Details Date Type Department Care Team Description 10/21/2018 Telephone [facility] Vascular Sophie piper, Juan Nava MD Clinic Tram [address] [place] [address] [place] [address] [phone] Social History Tobacco Use Types Packs/Day Years [...] [employer] Location of surgery: [facility] Date and time of surgery: 11/05/18 [...] pt will need spinal drain. Aruna Simmons, Inspection Manager ON COLLECTION CLERK Telephone Encounter - Aruna Simmons - 10/25/2018 4:25 PM CST Spoke with daughter, Raquel, and she will have her dad come on 11/03/18 @ 9:00 to the [facility] lab for type and screen. I called the lab to make the appt for them. Aruna Simmons, Inspection Manager ON COLLECTION CLERK Telephone Encounter - Sondra Johnson RN - 10/22/2018 12:50 PM CST RN called [facility] Blood Bank and informed them of pt's upcoming surgery and request for 2 units of packed RBCs are available. Discussed with Blood Bank pt has RBC antibodies. Per Pam in blood bank, pt needs to have a type and screen drawn here at [facility] 48 hours prior to procedure. Pam stated pt could makea lab appointment on 11/03/18 or morning of 11/04/18. Pt's lab from 09/28/18 cannot be used as reference. Order entered for ABO/type and screen. Will route back to surgery scheduling. SHASTA Winkler, RN ON COLLECTION CLERK Telephone Encounter - Aruna Simmons - 10/21/2018 [...] prior to the upcoming surgery. Aruna Simmons, Inspection Manager ON COLLECTION CLERK documented in this encounter Plan of Treatment Not on filedocumented as of this encounter Results (ABNORMAL) ABO/Rh type and screen (11/03/2018 9:10 AM COUPON COLLECTION CLERK) [facility] Method Time Signature Units Ordered 4 11/05/2018 [facility] 1:30 PM [facility] ABO O 11/03/2018 [facility] 10:15 AM [facility] RH(D) Pos [facility] Antibody Pos (A) 11/03/2018 [facility] Screen 10:15 AM [facility] Test Valid [place] 11/03/2018 [place] Only At [facility] 9:31 AM [facility] Specimen 11/06/2018 11/03/2018 [facility] Expires 9:31 AM [facility] Crossmatch Red Blood 11/03/2018 [place] Cells 9:31 AM [facility] Specimen Anatomical Collection Method Collection Time Receive d Time (Source) Location / / Volume Laterality Blood specimen 11/03/2018 9:10 AM 019 9:19 (specimen) COUPON COLLECTION CLERK AM COUPON COLLECTION CLERK Juan Vásquez MD LAB - BLOOD BANK TEST ORDER Performing Organization Address City/State/ZIP Code Phon e Number M [facility] [address] [place] [address] [facility] [address] [place] [address], [facility] [phone] documented in this encounter Visit Diagnoses Diagnosis Abdominal aortic aneurysm (AAA) without rupture - Primary Encounter for pre-operative laboratory t esting Preoperative examination, unspecified documented in this encounter Additional Health Concerns Infection Onset Date Last Indicated Resolved Time MRSAComment: Positive 02/17/11 and 09/22/12 11/05/2018 019 Negatives 05/03/14 (HE), 12/01/14 (HE) documented as of this encounter Care Teams [employer] Sprayer Relationship Specialty Start Date End Date Clinic, [facility] PCP - General 05/12/17 [address] [place] [address] documented as of this encounter
--- OUTSIDE RECORDS SUMMARY | 2022-07-17 13:55 | XMS_ITS | Encounter Summary ---
:1940 Author Organization [place] Address [address] [place] [address] Care Team Providers Name Role Phone Kehinde Portillo Primary Care Provider [phone] Encounter Details Date Type Department Care Team [...] on filedocumented in this encounter Care Teams Shake Cutter Relationship Specialty Start Date End Date [facility] - [facility] [place] [address] [phone] documented as of this encounter
--- OUTSIDE RECORDS SUMMARY | 2022-07-17 13:55 | XMS_ITS | Encounter Summary ---
:1940 Author Organization [place] Address [facility] [place] [address] Care Team Providers Name Role Phone Clinic, [facility] Primary Care Provider [phone] Reason for Visit Auth/Cert Specialty Diagnoses / Procedures Referred By Contact Refer red To Contact Surgery Diagnoses ABDOMINAL AORTIC ANEURYSM Sh Periop Services Procedures ENDOVASCULAR REPAIR ANEURYSM ABDOMINAL AORTA [address] [place] [address] Phone: Referral ID Status Reason Start Date Expiration Date Visits Requ ested Visits Authorized [id number] 1 1 Encounter Details Date Type Department Care Team Description 09/28/2018 - [facility][1]Juan llamas MD [address] [place] [id number] AAA (abdominal 09/29/2018 Encounter Carrie Abdi MD [address] [place] [id number] aortic aneurysm) Intermediate Care (H) [address] [place] [...] Comments Blood Pressure 135/74 09/29/2018 11:18 AM CERTIFIED PROCEDURAL CODER Pulse 48 09/29/2018 11:18 AM CERTIFIED PROCEDURAL CODER Temperature 36.5 ??C (97.7 ??F) 09/29/2018 11:18 AM CERTIFIED PROCEDURAL CODER Respiratory Rate 16 09/29/2018 11:18 AM CERTIFIED PROCEDURAL CODER Oxygen Saturation 95% 09/29/2018 11:18 AM CERTIFIED PROCEDURAL CODER Inhaled Oxygen Concentration - - Weight 85.2 kg (187 lb 12.8 oz) 09/29/2018 5:00 AM CERTIFIED PROCEDURAL CODER Height 170.2 cm (5' 7) 09/28/2018 11:21 AM CERTIFIED PROCEDURAL CODER Body Mass Index 29.41 09/28/2018 11:21 AM CERTIFIED PROCEDURAL CODER documented in this encounter Discharge Summaries Juan [...] MD MT: RIO Name: SPEEDY MCDUFFIE Account: [id number] : 1940 Admit Date: 09/28/2018 Discharge Date: 09/29/2018 Document: [id number] cc: Primary IFIED PROCEDURAL CODER documented in this encounter Medications at Time [...] Acute left-sided low back pain without sciatica METOPROLOL TARTRATE PO Take 50 mg by [...] Levi MD - 09/29/2018 9:32 AM CST [facility] Vascular Medicine Progress Note Date of [...] aorta. Exchange was made for a 6 Tristanian vascular sheath. 18-gauge singlewall needle was then advanced into the left common femoral artery through which a 0.035 inch Bentson wire was advanced in the abdominal aorta. Exchange is made for a 6 Tristanian vascular sheath. Via the left groin access, a 5 Tristanian pigtail catheter was advanced over the Bentson wire into the abdominal aorta. Via the right groin, a 5 Tristanian pigtail catheter was advanced over the Bentson [...] concerns during business hours M-F, call the [facility] at [phone] to have the rounding/germination testing manager Vascular Medicine (NOT VASCULAR SURGERY) MD paged. - After business hours M-F,??for medical concerns on this patient, please page hospitalist staff. - For vascular surgical questions, please page the appropriate surgeon (primary vascular surgeon or germination testing manager vascular surgeon) based upon the time of day. Lambert Fontanez PA-C Zoltan Londono MD - 09/29/2018 8:19 AM CST [facility] Vascular Surgery Progress Note Assessment & [...] concerns during business hours M-F, call the [facility] at [phone] to have the rounding/germination testing manager Vascular Medicine (NOT VASCULAR SURGERY) MD paged. - After business hours M-F,??for medical concerns on this patient, please page hospitalist staff. - For vascular surgical questions, please page the appropriate surgeon (primary vascular surgeon or germination testing manager vascular surgeon) based upon the time of day. Brandie Barrera PA-C Michelle Jones - 09/28/2018 10:42 AM CST Admission medication history interview status for the 09/28/2018 admission is complete. See [facility] admission navigator for prior to admission medications Medication history source reliability:Good Medication history interview source(s):Patient Medication history resources (including written lists, pill bottles, clinic record):Patient mailed in his medication list prior to surgery Primary pharmacy.[facility] Additional medication history information not noted on TOOL CHECKER med list :None Time spent in this [...] at HS Yes Unknown, Entered By History IFIED PROCEDURAL CODER documented in this encounter Procedure Notes Jacqui [...] for procedural details. Provider name: Jacqui Odom Rn Acute Dialysis(s):None IFIED PROCEDURAL CODER documented in this encounter Consult Notes Carrie [...] his throat. PENICILLINS cause a rash. [facility] has an unspecified allergy associated with its [...] . He has 2 children. 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 He quit smoking [id number] after a 1/4 pack per day use [...] MD MT: JACKSON Name: SPEEDY MCDUFFIE Account: [id number] : 1940 Consult Date: 09/28/2018 Document: [id number] IFIED PROCEDURAL CODER documented in this encounter Miscellaneous Notes Op [...] MD MT: JACKSON Name: SPEEDY MCDUFFIE Account: [id number] : 1940 Procedure Date: 09/28/2018 Document: [id number] IFIED PROCEDURAL CODER Plan of Care - Griselda Dinero RN [...] will continue to follow up with this. IFIED PROCEDURAL CODER Provider Notification - Levi Hollingsworth MD - 09/29/2018 12:46 AM CERTIFIED PROCEDURAL CODER Brief update: Paged re: request for home melatonin 10 mg melatonin HS PRN added. Levi Hollingsworth MD 12:47 AM IFIED PROCEDURAL CODER Plan of Care - Ira South RN - 09/28/2018 11:11 PM CST A&O, VSS, Lung sounds clear, Bowel sounds active,adeqaute urine output, incision right & letgroin CDI Ambulates assist 1, Regular diet, tolerating liquids with poor appetite. Pain controlled by scheduled tylenol and PRN oxycodone. IFIED PROCEDURAL CODER Plan of Care - Vandana Smith RN - 09/28/2018 7:22 PM CST Pt is came from PACU.Groin site dressing clean dry and intact.Not void yet.Ice pack given.IVF running .will monitor. IFIED PROCEDURAL CODER documented in this encounter Plan of Treatment Not on filedocumented as of this encounter Procedures Procedure Name Priority Date/Time Associated Comments Diagnosis CTA CHEST WITH Routine 09/29/2018 11:38 Results f or this CONTRAST AM CERTIFIED PROCEDURAL CODER procedure are i n the results section. BASIC METABOLIC PANEL Timed 09/29/2018 10:06 AAA (abdominal Results for this AM CERTIFIED PROCEDURAL CODER aortic aneurysm) procedure a re in (H) the results section. GLUCOSE BY METER Routine 09/29/2018 6:00 AM AAA (abdominal Res ults for this CERTIFIED PROCEDURAL CODER aortic aneurysm) procedure a re in (H) the results section. ANGIOGRAM Routine 09/28/2018 2:39 PM CERTIFIED PROCEDURAL CODER IR ABDOMINAL Routine 09/28/2018 2:17 PM AAA (abdominal Results for this ENDOVASCULAR STENT CERTIFIED PROCEDURAL CODER aortic aneurysm) proce dure are in GRAFT (H) the results section. EKG 12-LEAD, TRACING STAT 09/28/2018 11:42 Res ults for this ONLY AM CERTIFIED PROCEDURAL CODER procedure are i n the results section. XR CHEST 1 VIEW STAT 09/28/2018 11:21 Results for this AM CERTIFIED PROCEDURAL CODER procedure are i n the results section. BLOOD COMPONENT Routine 09/28/2018 11:11 AAA (abdominal Result s for this AM CERTIFIED PROCEDURAL CODER aortic aneurysm) procedure a re in (H) the results section. BLOOD COMPONENT Routine 09/28/2018 11:11 AAA (abdominal Result s for this AM CERTIFIED PROCEDURAL CODER aortic aneurysm) procedure a re in (H) the results section. POTASSIUM STAT 09/28/2018 11:11 AAA (abdominal Results f or this AM CERTIFIED PROCEDURAL CODER aortic aneurysm) procedure a re in (H) the results section. LIPID PROFILE STAT 09/28/2018 11:11 AAA (abdominal Results for this AM CERTIFIED PROCEDURAL CODER aortic aneurysm) procedure a re in (H) the results section. HEMOGLOBIN A1C STAT 09/28/2018 11:11 AAA (abdominal Results for this AM CERTIFIED PROCEDURAL CODER aortic aneurysm) procedure a re in (H) the results section. CREATININE STAT 09/28/2018 11:11 AAA (abdominal Results f or this AM CERTIFIED PROCEDURAL CODER aortic aneurysm) procedure a re in (H) the results section. ABO/RH TYPE AND STAT 09/28/2018 11:11 AAA (abdominal Result s for this SCREEN AM CERTIFIED PROCEDURAL CODER aortic aneurysm) procedure a re in (H) the results section. LAB RESULT - HIM SCAN 09/24/2018 12:00 AM CERTIFIED PROCEDURAL CODER EKG CARDIAC - HIM 09/24/2018 12:00 SCAN AM CERTIFIED PROCEDURAL CODER documented in this encounter Results CTA Chest with Contrast (09/29/2018 11:38 AM CERTIFIED PROCEDURAL CODER) Anatomical Region Laterality Modality Chest, SUBRAD IR PROCEDURE, UMP CT CTA, RAD CT Computed Tomography Specimen (Source) Anatomical Location Collection Method / Collectio n Time Received Time / Laterality Volume Impressions 09/29/2018 4:30 PM CERTIFIED PROCEDURAL CODER IMPRESSION: Tortuous descending thoracic aorta with bilobed aneurysmal dilatation measuring up to 50 mm in diameter in the distal descending aorta. JACUQI ODOM MD Narrative 09/29/2018 4:30 PM CERTIFIED PROCEDURAL CODER PROCEDURE: CTA of the chest DATE OF [...] ORDERABLES Basic metabolic panel (09/29/2018 10:06 AM CERTIFIED PROCEDURAL CODER) [facility] Time Signature Sodium 141 133 - 144 09/29/2018 [facility] mmol/L 10:31 AM [facility] Potassium 4.5 3.4 - 5.3 09/29/2018 [facility] mmol/L 10:31 AM [facility] Chloride 109 94 - 109 09/29/2018 [facility] mmol/L 10:31 AM [facility] Carbon Dioxide 25 20 - 32 09/29/2018 [facility] mmol/L 10:31 AM [facility] Anion Gap 7 3 - 14 09/29/2018 [place] mmol/L 10:31 AM [facility] Glucose 97 70 - 99 09/29/2018 [place] mg/dL 10:31 AM [facility] Urea Nitrogen 18 7 - 30 09/29/2018 [place] mg/dL 10:31 AM [facility] Creatinine 1.25 0.66 - 09/29/2018 [place] 1.25 10:31 AM [facility] mg/[facility] GFR Estimate Not Calculated >60 09/29/2018 [place] mL/min/1. 10:[address] GFR Estimate Not Calculated >60 09/29/2018 [place] If Black mL/min/1. 10:[address] Calcium 8.8 8.5 - 09/29/2018 [place] 10.1 10:31 AM [facility] mg/dL [facility] Specimen Anatomical Collection Method Collection Time Receive d Time (Source) Location / / Volume Laterality Blood specimen 09/29/2018 10:06 8 (specimen) AM CERTIFIED PROCEDURAL CODER 10:07 AM CERTIFIED PROCEDURAL CODER Pam Conde PA-C LAB - BLOOD ORDERABLES Performing Organization Address City/State/ZIP Code Phon e Number M [facility] [address] [place] [phone] [facility] [address] [place] [address] [address], [facility] [phone] (ABNORMAL) Glucose by meter (09/29/2018 6:00 AM CERTIFIED PROCEDURAL CODER) P athologist Signature Glucose 109 (H) 70 - 99 09/29/2018 [facility] mg/dL 6:18 AM CERTIFIED PROCEDURAL CODER TEST, GLUCOSE Specimen Anatomical Collection Method Collection Time Receive d Time (Source) Location / / Volume Laterality 09/29/2018 6:00 AM 8 6:18 CERTIFIED PROCEDURAL CODER AM CERTIFIED PROCEDURAL CODER Juan Vásquez MD LAB - BEAKER POCT Performing Organization Address City/State/ZIP Code Phon e Number [facility] POINT OF CARE TEST, GLUCOSE POINT OF CARE TEST, GLUCOSE IR Abdominal Endovascular Stent Graft (09/28/2018 2:17 PM CERTIFIED PROCEDURAL CODER) Anatomical Region Laterality Modality Abdomen/Pelvis Radio Fluoroscopy Specimen (Source) Anatomical Location Collection Method / Collectio n Time Received Time / Laterality Volume Impressions 09/29/2018 8:52 AM CERTIFIED PROCEDURAL CODER Impression: 1. Thoracic and abdominal angiography de monstrating previously unknown thoracic aortic aneurysm as well as the known abdominal aortic aneurysm 2. Endovascular aneurysm repair was abor clover to allow for further investigation of the thoracic aortic ane urysm and future surgical planning. JACQUI ODOM MD Narrative 09/29/2018 8:52 AM CERTIFIED PROCEDURAL CODER PROCEDURE(S): 1. Thoracic and abdominal aortic angiogr [...] repair. A timeout was performed per [facility] protocol policy to confirm the correct patient, [...] aorta. Exchange was made for a 6 Tristanian vascula r sheath. 18-gauge singlewall needle was then advanced into the left c ommon femoral artery through which a 0.035 inch Bentson wire was adva nced in the abdominal aorta. Exchange is made for a 6 Tristanian vascular sheath. Via the left groin access, a 5 Tristanian pigtail catheter was advanced over the Bentson wire into the abdominal aorta. Via the right groin, a 5 Tristanian pigtail catheter was advanced over the Bentson [...] repair. A timeout was performed per [facility] protocol policy to confirm the correct patient, site and pr ocedure to be performed. Please note that due to the complex natu re of the procedure, a multi-disciplinary approach was used [facility] involved Mili Vásquez and Lei functioning as co-surgeons for t his procedure. Bilateral common femoral arteries were s urgically exposed, see separate operative report for details. A n 18-gauge singlewall needle was then inserted into the right common femoral artery through which a 0.035 inch Bentson wire was advanced int o the abdominal aorta. Exchange was made for a 6 Tristanian vascula r sheath. 18-gauge singlewall needle was then advanced into the left c ommon femoral artery through which a 0.035 inch Bentson wire was adva nced in the abdominal aorta. Exchange is made for a 6 Tristanian vascular sheath. Via the left groin access, a 5 Tristanian pigtail catheter was advanced over the Bentson wire into the abdominal aorta. Via the right groin, a 5 Tristanian pigtail catheter was advanced over the Bentson [...] EKG 12-lead, tracing only (09/28/2018 11:42 AM CERTIFIED PROCEDURAL CODER) [facility] Method Time Signature Interpretation ECG Click View RADIOLOGY Image link RESULTS to view waveform and result Specimen (Source) Anatomical Collection Method Collection Time Re ceived Time Location / / Volume Laterality 09/28/2018 11:42 AM CERTIFIED PROCEDURAL CODER Juan Vásquez MD ECG ORDERABLES Performing Organization Address City/State/ZIP Code Phon e Number RADIOLOGY RESULTS XR Chest 1 View (09/28/2018 11:21 AM CERTIFIED PROCEDURAL CODER) Anatomical Region Laterality Modality Chest Digital Radiography Specimen (Source) Anatomical Location Collection Method / Collectio n Time Received Time / Laterality Volume Impressions 09/28/2018 1:09 PM CERTIFIED PROCEDURAL CODER IMPRESSION: Heart size similar to prior. The thoracic aorta is elongated. No airspace consolidation or pneumothorax. There appears to be a small right pleural effusion. ELAINA HUNTLEY MD Narrative 09/28/2018 1:09 PM CERTIFIED PROCEDURAL CODER CHEST ONE VIEW ??09/28/2018 11:21 AM HISTORY: [...] ORDER BRAYDEN Blood component (09/28/2018 11:11 AM CERTIFIED PROCEDURAL CODER) [facility] Method Time Signature Unit Number [id number] 09/28/2018 [facility] 1:21 PM [facility] Blood Red Blood 09/28/2018 [facility] Component Cells 1:21 PM [facility] Reduced Division 00 09/28/2018 [facility] Number 1:21 PM [facility] Status of No longer 10/02/2018 [facility] Unit available 3:00 AM [facility] 10/02/2018 HOSPITAL 0300 Blood Product [id number] 09/28/2018 [facility] Code 1:21 PM [facility] Unit Status RET [facility] Specimen Anatomical Collection Method Collection Time Receive d Time (Source) Location / / Volume Laterality 09/28/2018 11:11 09/28/2018 AM CERTIFIED PROCEDURAL CODER 11:44 AM CERTIFIED PROCEDURAL CODER Juan Vásquez MD LABORATORY Performing Organization Address City/State/ZIP Code Phon e Number M [facility] [address] [place], [place] [address] [facility] [address] [place] [address], [facility] [address] [place], [place] [address], [facility] [phone] Blood component (09/28/2018 11:11 AM CERTIFIED PROCEDURAL CODER) Patholo gist Method Time Signature Unit Number [id number] 09/28/2018 [facility] 1:21 PM CERTIFIED PROCEDURAL CODER [facility] Blood Red Blood 09/28/2018 [facility] Component Cells 1:21 PM CERTIFIED PROCEDURAL CODER [facility] Reduced Division 00 09/28/2018 [facility] Number 1:21 PM [facility] Status of No longer 10/02/2018 [facility] Unit available 3:00 AM [facility] 10/02/2018 HOSPITAL 0300 Blood Product [id number] 09/28/2018 [facility] Code 1:21 PM [facility] Unit Status RET [facility] Specimen Anatomical Collection Method Collection Time Receive d Time (Source) Location / / Volume Laterality 09/28/2018 11:11 09/28/2018 AM CERTIFIED PROCEDURAL CODER 11:44 AM CERTIFIED PROCEDURAL CODER Juan Vásquez MD LABORATORY Performing Organization Address City/State/ZIP Code Phon e Number [facility] [address] [place], [place] [address] [facility] [address] [place] [address], [facility] [phone] [facility] [address] [place], [place] [address], [facility] [phone] Potassium (09/28/2018 11:11 AM CERTIFIED PROCEDURAL CODER) P athologist Signature Potassium 4.0 3.4 - 5.3 09/28/2018 [place] mmol/L 12:22 PM CERTIFIED PROCEDURAL CODER [facility] Specimen Anatomical Collection Method Collection Time Receive d Time (Source) Location / / Volume Laterality Blood specimen 09/28/2018 11:11 12/11/201 8 (specimen) AM CERTIFIED PROCEDURAL CODER 11:43 AM CERTIFIED PROCEDURAL CODER Ramiro Card MD LAB - BLOOD ORDERABLES Performing Organization Address City/State/ZIP Code Phon e Number M [facility] [address] [place] [address] [facility] [address] [place] [address], [place] [phone] Lipid panel (09/28/2018 11:11 AM CERTIFIED PROCEDURAL CODER) Analysis Performed At [facility] logist Time Signature Cholesterol 143 <200 mg/dL 09/28/2018 [facility] 12:22 PM [facility] Triglycerides 115 <150 mg/dL 09/28/2018 [facility] 12:24 PM [facility] HDL Cholesterol 68 >39 mg/dL 09/28/2018 [facility] 12:24 PM [facility] LDL Cholesterol 52 <100 mg/dL 09/28/2018 [facility] Calculated 12:24 PM [facility] Comment: Desirable: <100 mg/dl Non HDL Cholesterol 75 <130 mg/dL 09/28/2018 12:24 PM [facility] Specimen Anatomical Collection Method Collection Time Receive d Time (Source) Location / / Volume Laterality Blood specimen 09/28/2018 11:11 8 (specimen) AM CERTIFIED PROCEDURAL CODER 11:43 AM CERTIFIED PROCEDURAL CODER Juan Vásquez MD LAB - BLOOD ORDERABLES Performing Organization Address City/State/ZIP Code Phon e Number M [facility] [address] [place] [address] [facility] [address] [place] [address], [place] [phone] (ABNORMAL) ABO/Rh type and screen (09/28/2018 11:11 AM CERTIFIED PROCEDURAL CODER) Component Value Ref Test Analysis Performed At [facility] gist Range Method Time Signature Units Ordered 2 09/28/2018 [facility] 11:54 AM [facility] ABO O 09/28/2018 [facility] 12:28 PM [facility] RH(D) Pos [facility] Antibody Screen Pos (A) 09/28/2018 [facility] 12:28 PM [facility] Test Valid Only [place] 09/28/2018 [facility] 11:47 AM [facility] Specimen Expires 10/01/2018 09/28/2018 [facility] 11:47 AM [facility] Crossmatch Red Blood Cells 09/28/2018 [facility] 11:54 AM [facility] Blood Bank Delay in availability of Red Blood Cells called to 09/28/2018 [facility] Comment Esme in Preop at 1228 re 12:37 PM [facility] Antibody ANTI-[place] 09/28/2018 [facility] Identification 1:26 PM [facility] Antigen Type [place] Negative 09/28/2018 [facility] 1:26 PM [facility] Specimen Anatomical Collection Method Collection Time Receive d Time (Source) Location / / Volume Laterality Blood specimen 09/28/2018 11:11 8 (specimen) AM CERTIFIED PROCEDURAL CODER 11:44 AM CERTIFIED PROCEDURAL CODER Juan Vásquez MD LAB - BLOOD BANK TEST ORDER Performing Organization Address City/State/ZIP Code Phon e Number M [facility] [address] [place] [address] [facility] [address] [place] [address], [place] [phone] (ABNORMAL) Hemoglobin A1c (09/28/2018 11:11 AM CERTIFIED PROCEDURAL CODER) P athologist Signature Hemoglobin A1C 5.7 (H) 0 - 5.6 % 09/28/2018 [facility] 12:08 PM [facility] Comment: Normal <5.7% Prediabetes 5.7-6.4% ??Diab etes 6.5% or higher - adopted from ADA consensus guidelines. Specimen Anatomical Collection Method Collection Time Receive d Time (Source) Location / / Volume Laterality Blood specimen 09/28/2018 11:11 8 (specimen) AM CERTIFIED PROCEDURAL CODER 11:43 AM CERTIFIED PROCEDURAL CODER Juan Vásquez MD LAB - BLOOD ORDERABLES Performing Organization Address City/State/ZIP Code Phon e Number M [facility] [address] [place] [address] [address] [facility] [address] [place] [address], [place] [phone] (ABNORMAL) Creatinine (09/28/2018 11:11 AM CERTIFIED PROCEDURAL CODER) P athologist Signature Creatinine 1.46 (H) 0.66 - 09/28/2018 [facility] 1.25 mg/dL 12:22 PM [facility] GFR Estimate 47 (L) >60 09/28/2018 [place] mL/min/1.7 12:[address] Comment: Non GFR Calc GFR Estimate If 57 (L) >60 mL/min/1.7m2 09/28/2018 12:22 PM [facility] Comment: GFR Calc Specimen Anatomical Collection Method Collection Time Receive d Time (Source) Location / / Volume Laterality Blood specimen 09/28/2018 11:11 8 (specimen) AM CERTIFIED PROCEDURAL CODER 11:43 AM CERTIFIED PROCEDURAL CODER Juan Vásquez MD LAB - BLOOD ORDERABLES Performing Organization Address City/State/ZIP Code Phon e Number M [facility] [address] [place] [address] [address] [phone] [facility] [address] [address], [place] [phone] LAB RESULT - HIM SCAN (09/24/2018 12:00 AM CERTIFIED PROCEDURAL CODER) Specimen (Source) Anatomical Location Collection Method / Collectio n Time Received Time / Laterality Volume 09/24/2018 Narrative This result has an attachment that is no t available. Provider Outside NON-BEAKER LAB TESTING EKG CARDIAC - HIM SCAN (09/24/2018 12:00 AM CERTIFIED PROCEDURAL CODER) Specimen (Source) Anatomical Location Collection Method / Collectio n Time Received Time / Laterality Volume 09/24/2018 Narrative This result has an attachment that is no t available. Provider Outside ECG ORDERABLES documented in this encounter Visit Diagnoses Diagnosis AAA (abdominal aortic aneurysm) Abdominal aneurysm without mention of ru pture documented in this encounter Administered Medications Inactive Administered Medications - up to 3 most recent administrations Medication Order MAR Action Action Date Dose Rate Site acetaminophen (TYLENOL) tablet 975 Given 09/29/2018 5:41 AM CERTIFIED PROCEDURAL CODER 975 mg mg 975 mg, Oral, EVERY 8 HOURS, First dose on Thu09/28/18 at 2200, For 3 days, Do not use if patient has an active opioid/acetaminophen combined analgesic product ordered for pain. Maximum acetaminophen dose from all sources = 75 mg/kg/day not to exceed 4 grams/day., Post-procedure Given 09/28/2018 9:50 PM CERTIFIED PROCEDURAL CODER 975 mg apixaban ANTICOAGULANT (ELIQUIS) tablet 2.5 Given 09/29/2018 8:22 AM CERTIFIED PROCEDURAL CODER 2.5 mg mg 2.5 mg, Oral, 2 TIMES DAILY, First dose on Thu09/29/18 at 0900 atorvastatin (LIPITOR) tablet 40 mg Given 09/28/2018 9:50 PM CERTIFIED PROCEDURAL CODER 40 mg 40 mg, Oral, EVERY EVENING, First dose on Thu09/28/18 at 2000 ceFAZolin (ANCEF) intermittent infusion Given 09/29/2018 5:4 1 AM CERTIFIED PROCEDURAL CODER 2 g 200 mL/hr 2 g in 100 mL dextrose PRE-MIX Routine, 2 g, Intravenous, EVERY 8 HOURS, First dose on Thu09/28/18 at 2100, For 2 doses, Indications: Perioperative Pharmacoprophylaxis, Post-procedure Given 09/28/2018 9:55 PM CERTIFIED PROCEDURAL CODER 2 g 200 mL/hr fentaNYL (PF) (SUBLIMAZE) injection 100 mcg Given 09/28/2018 12:07 PM CERTIFIED PROCEDURAL CODER 50 mcg 100 mcg, Intravenous, ONCE, On Thu09/28/18 at 1100, For 1 dose, For ordered IV doses 1-100 mcg give IV Push undiluted over a minimum of 3-5 minutes. fentaNYL (PF) (SUBLIMAZE) injection 25-5 0 mcg Given 09/28/2018 4:04 PM CERTIFIED PROCEDURAL CODER 25 mcg 25-50 mcg, Intravenous, EVERY 2 [...] 3-5 minutes., PACU Given 09/28/2018 3:50 PM CERTIFIED PROCEDURAL CODER 25 mcg Given 09/28/2018 3:41 PM CERTIFIED PROCEDURAL CODER 25 mcg hydrALAZINE (APRESOLINE) injection 2.5-5 mg Given 09/28/2018 4:10 PM CERTIFIED PROCEDURAL CODER 5 mg 2.5-5 mg, Intravenous, EVERY 10 [...] solution 80 mL Given 09/29/2018 11:37 AM CERTIFIED PROCEDURAL CODER 80 mLs 80 mL, Intravenous, ONCE, On Thu09/29/18 at 1130, For 1 dose lactated ringers infusion New Bag 09/28/2018 12:16 PM CERTIFIED PROCEDURAL CODER 25 mL/hr at 25 mL/hr, Intravenous, CONTINUOUS, IF patient NOT on dialysis., Pre-procedure, Starting on Thu09/28/18 at 1115, Until Thu09/28/18 at 1457 lactated ringers infusion New Bag 09/29/2018 2:48 AM CERTIFIED PROCEDURAL CODER 125 mL/hr at 125 mL/hr, Intravenous, CONTINUOUS, NOT for patient on renal dialysis. Saline lock after 1 liter if taking PO fluids., Post-procedure, Starting on Thu09/28/18 at 1800, Until Thu09/29/18 at 1753 Rate/Dose Verify 09/29/2018 12:39 AM CERTIFIED PROCEDURAL CODER 125 mL/hr New Bag 09/28/2018 6:31 PM CERTIFIED PROCEDURAL CODER 125 mL/hr lidocaine 1 % 1 mL Given 09/28/2018 12:00 PM CERTIFIED PROCEDURAL CODER 0.3 mLs 1 mL, Other, EVERY 1 HOUR PRN, mild pain with VAD insertion or accessing implanted port, Starting on Thu09/28/18 at 1101, Do NOT give if patient has a history of allergy to any local anesthetic or any louie product. MAX dose 1 mL subcutaneous OR intradermal in divided doses., Pre-procedure lisinopril (PRINIVIL/ZESTRIL) tablet 5 m g Given 09/29/2018 8:21 AM CERTIFIED PROCEDURAL CODER 5 mg 5 mg, Oral, 2 TIMES DAILY, First dose on Thu09/28/18 at 2100 Given 09/28/2018 9:52 PM CERTIFIED PROCEDURAL CODER 5 mg melatonin tablet 10 mg Given 09/29/2018 2:48 AM CERTIFIED PROCEDURAL CODER 10 mg 10 mg, Oral, AT BEDTIME PRN, sleep, Starting on Thu09/29/18 at 0044 metoprolol tartrate (LOPRESSOR) tablet 5 0 mg Given 09/29/2018 8:21 AM CERTIFIED PROCEDURAL CODER 50 mg 50 mg, Oral, 2 TIMES DAILY, First dose on Thu09/28/18 at 2100 Given 09/28/2018 9:50 PM CERTIFIED PROCEDURAL CODER 50 mg midazolam (VERSED) injection 2 mg Given 09/28/2018 12:10 PM CERTIFIED PROCEDURAL CODER 1 mg 2 mg, Intravenous, ONCE, On Thu09/28/18 at 1100, For 1 dose, For ordered IV doses 0.1-2.5 mg give IV Push slowly titrated over a minimum of 2 minutes. Dilute each 1mg in 4mL of NS. Given 09/28/2018 12:07 PM CERTIFIED PROCEDURAL CODER 1 mg oxyCODONE (ROXICODONE) tablet 5 mg Given 09/28/2018 10:49 PM CERTIFIED PROCEDURAL CODER 5 mg 5 mg, Oral, EVERY 3 HOURS PRN, other, pain control or improvement in physical function. Hold dose for analgesic side effects., Starting on Thu09/28/18 at 1751, Notify provider to assess for uncontrolled pain or analgesic side effects. Hold while on PRESS SET UP PERSON or with regular IV opioid dosing. Maximum total is 40 mg in 24 hours., Post-procedure Saline flush Given 09/29/2018 11:37 AM CERTIFIED PROCEDURAL CODER 80 mLs Intravenous, 80 mL, ONCE, On Thu09/29/18 at 1130, For 1 dose sodium chloride (PF) 0.9% PF flush 3 mL Given 09/28/2018 9:58 PM CERTIFIED PROCEDURAL CODER 3 mLs 3 mL, Intracatheter, EVERY 8 HOURS, First dose on Thu09/28/18 at 2200, And Q1H PRN, to lock peripheral IV dormant line., Post-procedure terazosin (HYTRIN) capsule 5 mg Given 09/28/2018 10:49 PM CERTIFIED PROCEDURAL CODER 5 mg 5 mg, Oral, AT BEDTIME, First dose on Thu09/28/18 at 2200 documented in this encounter Active and Recently Administered Medications Times are shown in CERTIFIED PROCEDURAL CODER. Scheduled Medication Order 09/27/2018 09/28/2018 09/29/2018 acetaminophen [...] RN)1318 (Given - Provider: Mattie Marmolejo APRN DAIRY ASSOCIATE) 900 mg, Intravenous, PRE-OP/PRE-PROCEDUR E, Starting Thu09/28/18 at 1101, For 1 dose, Give first dose within 1 hour PRIOR to incision., Indications: Perioperative Pharmacoprophylaxis, Pre-procedure fentaNYL (PF) (SUBLIMAZE) injection 100 mcg (COMPLETED) 1207 (Given - Provider: Isis Rivera, JOSE) 100 mcg, Intravenous, ONCE, Thu09/28/18 at 1100, [...] 2149 (Given - Provider: Ira South RN) 820 (Given - Provider: Cary Harper) 50 mg, [...] chloride (PF) 0.9% PF flush 3 mL 2157 (Given - Provider: Ira South RN) 0555 [...] Volume Adjustment - Provider: Mattie Marmolejo APRN DAIRY ASSOCIATE)1432 (Anesthesia Volume Adjustment - Provider: Mattie Marmolejo APRN DAIRY ASSOCIATE) at 25 mL/hr, Intravenous, CONTINUOUS, IF patient NOT on dialysis., Pre- procedure, Starting Thu09/28/18 at 1115, Until Thu09/28/18 at 1457 lactated ringers infusion 1831 (New Bag - Provid er: Vandana Smith RN) 0039 (Rate/Dose Verify - Provider: Griselda Dinero, RN)0248 (New Bag - Provider: Griselda Dinero, RN)1202 (Stopped - Provider: Jose Dave RN) [...] analgesic side effects. Hold whil e on PRESS SET UP PERSON or with regular IV opioid dosing. Maximum total is 40 mg in 24 hours., Post-procedure sodium chloride (PF) 0.9% PF flush 3 mL 3 mL, Intracatheter, EVERY 1 HOUR PRN, l ine flush, for peripheral IV flush post IV meds, Starting Thu09/28/18 at 1751, Post-procedure documented in this encounter Care Teams Roller Pneumatic Relationship Specialty Start Date End Date [facility] PCP - General 05/12/[address] [place] [address] documented as of this encounter
--- OUTSIDE RECORDS SUMMARY | 2022-07-17 13:55 | XMS_ITS | Encounter Summary ---
:1940 Author Organization [place] Address [address] [place] [address] Care Team Providers Name Role Phone Clinic, [facility] Primary Care Provider Reason for Visit Surgical Procedure Inpatient (Routine) - Closed Specialty Diagnoses / Procedures Referred By Contact Refer red To Contact Surgery Diagnoses AAA Juan Lewis MD Saylor, Howard Leroy, Procedures *OR 51* DR. ALANIZ TO ASSIST WITH ENDOVASCULAR REPAIR OF AAA WITH [employer] [address] [place] [id number] [address] [place] [address] Phone: Fax: Referral ID Status Reason Start Date Expiration Date Visits Requ ested Visits Authorized [id number] Closed 09/28/2018 09/28/2019 1 1 Encounter Details Date Type Department Care Team Description 09/28/2018 Office Visit SX SURGERY CASES Juan Lewis MD [address] [place] [id number] Fellow, Sh Surg Cons Social History Tobacco [...] filedocumented in this encounter Care Teams Pharmacy Benefit Manager Relationship Specialty Start Date End Date [facility] [place] PCP - General 05/12/[address] [place] [id number] documented as of this encounter
--- OUTSIDE RECORDS SUMMARY | 2022-07-17 13:55 | XMS_ITS | Encounter Summary ---
:1940 Author Organization [place] Address [address] [place] [address] Care Team Providers Name Role Phone Clinic, [facility] Primary Care Provider [phone] Reason for Referral Diagnostic Imaging CT Scan - Closed Specialty Diagnoses / Procedures Referred By Contact Refer red To Contact Diagnoses Abdominal aortic aneurysm Juan Lewis MD Procedures CTA Abdomen Pelvis with Contrast [address] [place] [address] Referral ID Status Reason Start Date Expiration Date Visits Requ ested Visits Authorized [id number] Closed 06/03/2018 06/03/2019 1 1 Reason for Visit Diagnostic Imaging CT Scan - Closed Specialty Diagnoses / Procedures Referred By Contact Refer red To Contact Diagnoses Abdominal aortic aneurysm Juan Lewis MD Procedures CTA Abdomen Pelvis with Contrast [address] [place] [address] Referral ID Status Reason Start Date Expiration Date Visits Requ ested Visits Authorized [id number] Closed 06/03/2018 06/03/2019 1 1 Encounter Details Date Type Department Care Team Description 06/07/[address] [facility] Juan Lewis dominal aortic [facility] MD Elijah aneurysm (H) [address] [place], [place] [address] [id number] [place] [address] [phone] Social History Tobacco Use Types Packs/Day Years [...] mg) by mouth daily tabletIndications: Uncontrolled hypertension TERAZOSIN HCL PO Take 5 mg by [...] encounter Visit Diagnoses Diagnosis Abdominal aortic aneurysm Abdominal aneurysm without mention [...] dose documented in this encounter Care Teams Concrete Mixing Plant Laborer Relationship Specialty Start Date End Date Bandar, Kehinde Santos PCP - General 05/12/[address] [place] [address] documented as of this encounter
--- OUTSIDE RECORDS SUMMARY | 2022-07-17 13:55 | XMS_ITS | Encounter Summary ---
:1940 Author Organization [place] Address [address] [place] [address] Care Team Providers Name Role Phone Clinic, [facility] Primary Care Provider [phone] Reason for Visit Auth/Cert Specialty Diagnoses / Procedures Referred By Contact Refer red To Contact Surgery Diagnoses DESCENDING THORACIC AORTIC ANEURYSM Sh Periop Services Procedures ENDOVASCULAR REPAIR ANEURYSM THORACIC AORTIC [address] [place] [address] Phone: Referral ID Status Reason Start Date Expiration Date Visits Requ ested Visits Authorized [id number] 1 1 Encounter Details Date Type Department Care Team Description 11/05/2018 Anesthesia Event [facility] Fela Conrad PeriOP Ser vices [facility] [address], [address] [facility] [place] [address] [phone] [place] [phone] (Wo rk) Anesthesia Record Procedure Summary Procedure [...] with oral Ivon Aguilar airway; Ease of MARBLE SETTER HELPER COMPUTER FIELD TECHNICIAN Intubation: Easy; Airway Size: 8; Cuffed; Oral; Blade Type: Glidescope; Blade Size: 4; Place by: Ryan Whitmorezer; Insertion Attempts: 1; Secured at (cm)to lip: 23 cm; Breath Sounds: Equal, clear and bilateral; End Tidal CO2: Present; Dentition: Intact, Unchanged; Grade View of Cords: 1; Airway Adjuncts: [place] scope Left Groin Interventional #1; 09/28/18; 1500 [...] Fela Conrad November 05, 2018 3:25 PM KEEPER Anesthesia Procedure Notes - Fela Conrad - 11/05/2018 3:24 PM BEAR KEEPER Associated Order(s): Central line catheter placement CENTRAL [...] flushed: Yes Comments: Central Line No complications. KEEPER Anesthesia Procedure Notes - Fela Conrad - 11/05/2018 3:23 PM BEAR KEEPER Associated Order(s): A Line Catheter Placement ARTERIAL [...] waveform: Yes Comments: Arterial Line No complications KEEPER Anesthesia Preprocedure Evaluation - Feal Conrad - 11/04/2018 6:53 PM CST Anesthesia [...] and alternatives discussed with: Patient.. Fela Conrad KEEPER documented in this encounter Miscellaneous Notes Anesthesia [...] APRN CRNA November 05, 2018 12:44 PM KEEPER documented in this encounter Plan of Treatment Not on filedocumented as of this encounter Procedures Procedure Name Priority Date/Time Associated Diagnosis Comme nts FV AN MI PA CENTRAL Routine 11/05/2018 3:24 PM BEAR KEEPER LINE CATHETER PROCEDURE Procedure Note - Dariel [...] LINE CATHETER PLACEMENT Routine 11/05/2018 3:23 PM BEAR KEEPER Procedure Note - Dariel Conrad - 11/05/2018 [...] clindamycin (CLEOCIN) infusion Given 11/05/2018 10:28 AM BEAR KEEPER 900 mg Routine, PRN, Starting on Thu11/05/18 at 1028, Anesthesia Intra-op dexamethasone (DECADRON) injection Given 11/05/2018 10:25 AM BEAR KEEPER 4 mg PRN, Administer over 1 Minutes, Starting on Thu11/05/18 at 1025, Anesthesia Intra-op ePHEDrine injection Given 11/05/2018 10:55 AM BEAR KEEPER 10 mg PRN, Starting on Thu11/05/18 at 1025, Anesthesia Intra-op Given 11/05/2018 10:38 AM BEAR KEEPER 5 mg Given 11/05/2018 10:25 AM BEAR KEEPER 5 mg fentaNYL (PF) (SUBLIMAZE) injection Given 11/05/2018 11:48 AM BEAR KEEPER 50 mcg PRN, Administer over 3-5 Minutes, Starting on Thu11/05/18 at 1010, Anesthesia Intra-op Given 11/05/2018 11:17 AM BEAR KEEPER 50 mcg Given 11/05/2018 10:10 AM BEAR KEEPER 100 mcg glycopyrrolate (ROBINUL) injection Given 11/05/2018 12:09 PM BEAR KEEPER 0.2 mg PRN, Administer over 1-2 Minutes, Starting on Thu11/05/18 at 1055, Anesthesia Intra-op Given 11/05/2018 12:07 PM BEAR KEEPER 0.4 mg Given 11/05/2018 10:55 AM BEAR KEEPER 0.2 mg heparin (porcine) injection Given 11/05/2018 10:59 AM BEAR KEEPER 7,000 Units PRN, Starting on Thu11/05/18 at 1059, Anesthesia Intra-op lactated ringers infusion New Bag 11/05/2018 7:30 AM BEAR KEEPER Intravenous, CONTINUOUS PRN, Anesthesia Intra-op, Starting on Thu11/05/18 at 0957, Until Thu11/05/18 at 1244 lactated ringers infusion New Bag 11/05/2018 9:57 AM BEAR KEEPER CONTINUOUS PRN, Anesthesia Intra-op, Starting on Thu11/05/18 at 0730, Until Thu11/05/18 at 1244 New Bag 11/05/2018 7:30 AM BEAR KEEPER lidocaine 2% injection (MDV) Given 11/05/2018 10:14 AM BEAR KEEPER 80 mg PRN, Starting on Thu11/05/18 at 1014, Anesthesia Intra-op neostigmine (PROSTIGMINE) injection Given 11/05/2018 12:09 PM BEAR KEEPER 2 mg Intravenous, PRN, Starting on Thu11/05/18 at 1207, Anesthesia Intra-op Given 11/05/2018 12:07 PM BEAR KEEPER 2 mg nitroGLYcerin 25 mg in D5W 250 mL infusi on Given 11/05/2018 12:39 PM BEAR KEEPER 10 mcg PRN, Starting on Thu11/05/18 at 1113, Anesthesia Intra-op Given 11/05/2018 12:38 PM BEAR KEEPER 15 mcg Given 11/05/2018 11:15 AM BEAR KEEPER 10 mcg ondansetron (ZOFRAN) injection Given 11/05/2018 12:07 PM BEAR KEEPER 4 mg PRN, Administer over 2-5 Minutes, Starting on Thu11/05/18 at 1207, Anesthesia Intra-op phenylephrine (CHRISTINE-SYNEPHRINE) injection Bolus 11/05/2018 11:23 AM BEAR KEEPER 50 mcg CONTINUOUS PRN, Starting on Thu11/05/18 at 1120, Anesthesia Intra-op New Bag 11/05/2018 11:20 AM BEAR KEEPER 50 mcg phenylephrine 0.2 mg/mL Restarted 11/05/2018 11:39 AM 0.2 mcg/kg/min 5.06 mL/hr (mcg/kg/min) drip BEAR KEEPER CONTINUOUS PRN, Starting on Thu11/05/18 at 1024, Anesthesia Intra-op Rate/Dose Change 11/05/2018 11:27 AM BEAR KEEPER 0.2 mcg/kg/min 5.06 mL/hr Restarted 11/05/2018 11:20 AM BEAR KEEPER 0.3 mcg/kg/min 7.59 mL/hr propofol (DIPRIVAN) injection 10 mg/mL v ial Given 11/05/2018 11:17 AM BEAR KEEPER 30 mg PRN, Starting on Thu11/05/18 at 1014, Anesthesia Intra-op Given 11/05/2018 10:14 AM BEAR KEEPER 170 mg rocuronium (ZEMURON) injection Given 11/05/2018 10:15 AM BEAR KEEPER 50 mg PRN, Starting on Thu11/05/18 at 1015, Anesthesia Intra-op sodium chloride 0.9% infusion New Bag 11/05/2018 9:57 AM BEAR KEEPER CONTINUOUS PRN, Anesthesia Intra-op, Starting on Thu11/05/18 at 0957, Until Thu11/05/18 at 1244 vecuronium (NORCURON) injection Given 11/05/2018 11:23 AM BEAR KEEPER 1 mg PRN, Starting on Thu11/05/18 at 1031, Anesthesia Intra-op Given 11/05/2018 10:31 AM BEAR KEEPER 2 mg documented in this encounter Additional Health Concerns Infection Onset Date Last Indicated Resolved Time MRSAComment: Positive 02/17/11 and 09/22/12 11/05/2018 019 Negatives 05/03/14 (HE), 12/01/14 (HE) documented as of this encounter Care Teams Policewoman Relationship Specialty Start Date End Date [facility], [facility] PCP - General 05/12/[address] [place], [place] [id number] documented as of this encounter
--- OUTSIDE RECORDS SUMMARY | 2022-07-17 13:55 | XMS_ITS | Encounter Summary ---
:1940 Author Organization [place] Address [facility] [place] [address] Care Team Providers Name Role Phone Clinic, [facility] Primary Care Provider [phone] Reason for Visit Reason Onset Date Comments Appointment 06/18/2018 Encounter Details Date Type Department Care Team Description 06/18/2018 Telephone [facility] Vascular Juan Delcid MD Appointment Clinic [place] [address] [place] [address] [place] [address] [phone] Social History Tobacco Use Types Packs/Day Years [...] only with Dr. Lewis on 07/01/18 in [place]. Pt had no further questions at this [...] on filedocumented in this encounter Care Teams Iron Piler Relationship Specialty Start Date End Date Bandar, Kehinde Portillofield PCP - General 05/12/[address] [place] [address] documented as of this encounter
--- OUTSIDE RECORDS SUMMARY | 2022-07-17 13:55 | XMS_ITS | Encounter Summary ---
:1940 Author Organization [place] Address [facility] [place] [address] Care Team Providers Name Role Phone [facility], [facility] Primary Care Provider [phone] Reason for Visit Reason Comments RECHECK pt would like to discuss Encounter Details Date Type Department Care Team Description 07/01/2018 Office Visit [facility] Juan Lewis aortic Surgery Clinic MD Elijah aneurysm (AAA) without [facility] [address] rupture (H) (Primary [address] [place] [address] [place], [place] [phone] [address] (Work) [phone] Social History Tobacco Use Types Packs/Day Years [...] aortic aneurysm (AAA) without rupture - Primary documented in this encounter Care Teams Testing Machine Operator Relationship Specialty Start Date End Date [facility] P[facility] - General 05/12/[address] [place] [address] documented as of this encounter
--- OUTSIDE RECORDS SUMMARY | 2022-07-17 13:55 | XMS_ITS | Encounter Summary ---
:1940 Author Organization [place] Address [address] [facility] [place] [address] Care Team Providers Name Role Phone Clinic, [facility] Primary Care Provider [phone] Reason for Visit Auth/Cert Specialty Diagnoses / Procedures Referred By Contact Refer red To Contact Surgery Diagnoses ABDOMINAL AORTIC ANEURYSM Sh Periop Services Procedures ENDOVASCULAR REPAIR ANEURYSM ABDOMINAL AORTA [address] [place] [address] Phone: Referral ID Status Reason Start Date Expiration Date Visits Requ ested Visits Authorized [id number] 1 1 Encounter Details Date Type Department Care Team Description 09/28/2018 Anesthesia Event [facility] Marylou Asher MD [facility] [address] [place] [address] [place] [facility] Mattie Monahan, BUSINESS DEVELOPMENT DIRECTOR COMPOUND WORKER [address] [place] [id number] [address] [place] [...] Angela ts, Mattie Farrell, of Intubation: Easy; BUSINESS DEVELOPMENT DIRECTOR COMPOUND WORKER BUSINESS DEVELOPMENT DIRECTOR COMPOUND WORKER Airway Size: 8; Cuffed; Oral; Blade Type: Glidescope; Blade Size: 4; Place by: EA COMPOUND WORKER; Insertion Attempts: 1; Secured at (cm)to lip: 23 cm; Breath Sounds: Equal, clear and bilateral; Dentition: Intact, Unchanged; Grade View of Cords: 1; Airway Adjuncts: [place] scope Urethral Catheter 09/28/18; 1315; No; 09/28/18 [...] Asher MD September 28, 2018 3:11 PM PULLER Anesthesia Procedure Notes - Ling Asher MD - 09/28/2018 3:10 PM PAN PULLER Associated Order(s): A Line Catheter Placement [...] Yes IBP within 10% of NIBP: Yes PULLER Anesthesia Preprocedure Evaluation - Ling Asher MD [...] risks, benefits and alternatives discussed with: Patient.. Lnig Asher MD PULLER documented in this encounter Miscellaneous Notes [...] APRN CRNA September 28, 2018 3:06 PM PULLER documented in this encounter Plan of Treatment Not on filedocumented as of this encounter Procedures Procedure Name Priority Date/Time Associated Diagnosis Comme nts ANE A LINE CATHETER Routine 09/28/2018 3:10 PM PAN PULLER PLACEMENT Procedure Note - Ritu Asher MD [...] (CLEOCIN) infusion 900 Given 09/28/2018 1:18 PM PAN PULLER 900 mg mg Routine, 900 mg, Intravenous, PRE-OP/PRE-PROCEDURE, Starting on Thu09/28/18 at 1101, For 1 dose, Give first dose within 1 hour PRIOR to incision., Indications: Perioperative Pharmacoprophylaxis, Pre-procedure dexmedetomidine (PRECEDEX) 4 mcg/mL bolu s Bolus 09/28/2018 2:19 PM PAN PULLER 8 mcg CONTINUOUS PRN, Starting on Thu09/28/18 at 1216, Anesthesia Intra-op Bolus 09/28/2018 1:12 PM PAN PULLER 12 mcg Bolus 09/28/2018 1:02 PM PAN PULLER 8 mcg ePHEDrine injection Given 09/28/2018 1:57 PM PAN PULLER 5 mg PRN, Starting on Thu09/28/18 at 1345, Anesthesia Intra-op Given 09/28/2018 1:49 PM PAN PULLER 5 mg Given 09/28/2018 1:45 PM PAN PULLER 5 mg fentaNYL (PF) (SUBLIMAZE) injection Given 09/28/2018 1:34 PM PAN PULLER 50 mcg PRN, Administer over 3-5 Minutes, Starting on Thu09/28/18 at 1302, Anesthesia Intra-op Given 09/28/2018 1:02 PM PAN PULLER 50 mcg lactated ringers infusion New Bag 09/28/2018 1:11 PM PAN PULLER CONTINUOUS PRN, Anesthesia Intra-op, Starting on Thu09/28/18 at 1311, Until Thu09/28/18 at 1506 lidocaine 2% injection (MDV) Given 09/28/2018 1:02 PM PAN PULLER 100 mg PRN, Starting on Thu09/28/18 at 1302, Anesthesia Intra-op phenylephrine 0.2 mg/mL Rate/Dose Change 09/28/2018 2:17 0.1 mcg/kg /min 2.54 mL/hr (mcg/kg/min) drip PM PAN PULLER CONTINUOUS PRN, Starting on Thu09/28/18 at 1406, Anesthesia Intra-op Rate/Dose Change 09/28/2018 2:12 PM PAN PULLER 0.15 mcg/kg/min 3.82 mL/hr New Bag 09/28/2018 2:06 PM PAN PULLER 0.25 mcg/kg/min 6.36 mL/hr propofol (DIPRIVAN) infusion New Bag 09/28/2018 1:11 PM 35 mcg/kg/min 17.8 mL/hr Intravenous, CONTINUOUS PRN, PAN PULLER Starting on Thu09/28/18 at 1311, Anesthesia Intra-op propofol (DIPRIVAN) injection 10 mg/mL v ial Given 09/28/2018 1:02 PM PAN PULLER 200 mg PRN, Starting on Thu09/28/18 at 1302, Anesthesia Intra-op rocuronium (ZEMURON) injection Given 09/28/2018 1:02 PM PAN PULLER 50 mg PRN, Starting on Thu09/28/18 at 1302, Anesthesia Intra-op vecuronium (NORCURON) injection Given 09/28/2018 2:17 PM PAN PULLER 2 mg PRN, Starting on Thu09/28/18 at 1334, Anesthesia Intra-op Given 09/28/2018 1:34 PM PAN PULLER 2 mg documented in this encounter Care Teams Vehicle Fuel Systems Converter Relationship Specialty Start Date End Date Clinic, Kehinde Portillofield PCP - General 05/12/17 [address] [phone] documented as of this encounter
--- OUTSIDE RECORDS SUMMARY | 2022-07-17 13:55 | XMS_ITS | Encounter Summary ---
:1940 Author Organization [place] Address [address] [address] Care Team Providers Name Role Phone Clinic, [facility] Primary Care Provider [phone] Reason for Visit Auth/Cert Specialty Diagnoses / Procedures Referred By Contact Refer red To Contact Surgery Diagnoses ABDOMINAL AORTIC ANEURYSM Periop Services Procedures ENDOVASCULAR REPAIR ANEURYSM ABDOMINAL AORTA [address], [address] [place] [address] Phone: Referral ID Status Reason Start Date Expiration Date Visits Requ ested Visits Authorized [id number] 1 1 Encounter Details Date Type Department Care Team Description 09/28/2018 Surgery [facility] Jaun Vásquez FEMORAL [place] PeriOP MD Elijah CUTDOWN WITH ANGIOGRAM Services [address] [place] [address] [place] [address] [phone] Surgery Details Date/Time Status Location OR Service [...] Comments Blood Pressure 146/79 09/28/2018 3:00 PM SENIOR SYSTEMS ANALYST Pulse 60 09/28/2018 11:21 AM SENIOR SYSTEMS ANALYST Temperature 36.5 ??C (97.7 ??F) 09/28/2018 3:00 PM SENIOR SYSTEMS ANALYST Respiratory Rate 9 09/28/2018 3:50 PM SENIOR SYSTEMS ANALYST Oxygen Saturation 94% 09/28/2018 3:50 PM SENIOR SYSTEMS ANALYST Inhaled Oxygen Concentration - - Weight 84.8 kg (187 lb) 09/28/2018 11:21 AM SENIOR SYSTEMS ANALYST Height 170.2 cm (5' 7) 09/28/2018 11:21 AM SENIOR SYSTEMS ANALYST Body Mass Index 29.41 09/28/2018 11:21 AM SENIOR SYSTEMS ANALYST documented in this encounter Discharge Summaries Juan [...] MD MT: RIO Name: SPEEDY MCDUFFIE Account: [id number] : 1940 Admit Date: 09/28/2018 Discharge Date: 09/29/2018 Document: [id number] cc: Primary OR SYSTEMS ANALYST documented in this encounter Medications at [...] Levi MD - 09/29/2018 9:32 AM CST [facility] Vascular Medicine Progress [...] Normal bowel sounds, soft, non-distended, non-tender Genitourinary: Elvi out. Skin: No bruising or bleeding, normal [...] aorta. Exchange was made for a 6 Nigerian vascular sheath. 18-gauge singlewall needle was then advanced into the left common femoral artery through which a 0.035 inch Bentson wire was advanced in the abdominal aorta. Exchange is made for a 6 Nigerian vascular sheath. Via the left groin access, a 5 Nigerian pigtail catheter was advanced over the Bentson wire into the abdominal aorta. Via the right groin, a 5 Nigerian pigtail catheter was advanced over the Bentson [...] concerns during business hours M-F, call the [facility] at [phone] to have the rounding/special education tutor Vascular Medicine (NOT VASCULAR SURGERY) paged. - After business hours M-F,??for medical concerns on this patient, please page hospitalist staff. - For vascular surgical questions, please page the appropriate surgeon (primary vascular surgeon or special education tutor vascular surgeon) based upon the time of day. Lambert Fontanez PA-C Zoltan Londono MD - 09/29/2018 8:19 AM CST [facility] Vascular Surgery Progress Note Assessment & Plan [...] concerns during business hours M-F, call the [facility] Vascular [facility] at [phone] to have the rounding/special education tutor Vascular Medicine (NOT VASCULAR SURGERY) MD paged. - After business hours M-,??for medical concerns on this patient, please page hospitalist staff. - For vascular surgical questions, please page the appropriate surgeon (primary vascular surgeon or special education tutor vascular surgeon) based upon the time of day. Brandie Barrera PA-C Michelle Jones - 09/28/2018 10:42 AM CST Admission medication history interview status for the 09/28/2018 admission is complete. See [facility] admission navigator for prior to admission medications Medication history source reliability:Good Medication history interview source(s):Patient Medication history resources (including written lists, pill bottles, clinic record):Patient mailed in his medication list prior to surgery Primary pharmacy.[facility] Additional medication history information not noted on ANESTHESIOLOGY CRNA med list :None Time spent in this [...] at HS Yes Unknown, Entered By History OR SYSTEMS ANALYST documented in this encounter Procedure Notes Jacqui [...] for procedural details. Provider name: Jacqui Odom Mold Repairer(s):None OR SYSTEMS ANALYST documented in this encounter Consult Notes Carrie [...] 1978. 2. Cervical fusion, Dr. Donahue at [facility] 02/18/2006. 3. Hardware removal and matrixectomy, right great toe, 09/30/2012. 4. Lumbar fusion 10/1996, L5-S1. 5. Lumbar fusion 1999, L4. 6. 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 7. Laparoscopic appendectomy, 01/2009. SOCIAL HISTORY: The patient is . He has 2 children. 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 He quit smoking [id number] after a 1/4 pack per day use [...] MD MT: JACKSON Name: SPEEDY MCDUFFIE Account: [id number] : 1940 Consult Date: 09/28/2018 Document: [id number] OR SYSTEMS ANALYST documented in this encounter Miscellaneous Notes [...] made for placement of the sheaths. Dr. Odmo then entered the operating room and cannulated [...] MD MT: JACKSON Name: SPEEDY MCDUFFIE Account: [id number] : 1940 Procedure Date: 09/28/2018 Document: [id number] OR SYSTEMS ANALYST Plan of Care - Griselda Dinero RN [...] will continue to follow up with this. OR SYSTEMS ANALYST Provider Notification - Levi Hollingsworth MD - 09/29/2018 12:46 AM SENIOR SYSTEMS ANALYST Brief update: Paged re: request for home melatonin 10 mg melatonin HS PRN added. Levi Hollingsworth MD 12:47 AM OR SYSTEMS ANALYST Plan of Care - Ira South RN - 09/28/2018 11:11 PM CST A&O, VSS, Lung sounds clear, Bowel sounds active,adeqaute urine output, incision right & letgroin CDI Ambulates assist 1, Regular diet, tolerating liquids with poor appetite. Pain controlled by scheduled tylenol and PRN oxycodone. OR SYSTEMS ANALYST Plan of Care - Vandana Smith RN - 09/28/2018 7:22 PM CST Pt is came from PACU.Groin site dressing clean dry and intact.Not void yet.Ice pack given.IVF running .will monitor. OR SYSTEMS ANALYST documented in this encounter Plan of Treatment Not on filedocumented as of this encounter Procedures Procedure Name Priority Date/Time Associated Comments Diagnosis CTA CHEST WITH Routine 09/29/2018 11:38 Results f or this CONTRAST AM SENIOR SYSTEMS ANALYST procedure are i n the results section. BASIC METABOLIC PANEL Timed 09/29/2018 10:06 AAA (abdominal Results for this AM SENIOR SYSTEMS ANALYST aortic aneurysm) procedure a re in (H) the results section. GLUCOSE BY METER Routine 09/29/2018 6:00 AM AAA (abdominal Res ults for this SENIOR SYSTEMS ANALYST aortic aneurysm) procedure a re in (H) the results section. ANGIOGRAM Routine 09/28/2018 2:39 PM SENIOR SYSTEMS ANALYST IR ABDOMINAL Routine 09/28/2018 2:17 PM AAA (abdominal Results for this ENDOVASCULAR STENT SENIOR SYSTEMS ANALYST aortic aneurysm) proce dure are in GRAFT (H) the results section. EKG 12-LEAD, TRACING STAT 09/28/2018 11:42 Res ults for this ONLY AM SENIOR SYSTEMS ANALYST procedure are i n the results section. XR CHEST 1 VIEW STAT 09/28/2018 11:21 Results for this AM SENIOR SYSTEMS ANALYST procedure are i n the results section. BLOOD COMPONENT Routine 09/28/2018 11:11 AAA (abdominal Result s for this AM SENIOR SYSTEMS ANALYST aortic aneurysm) procedure a re in (H) the results section. BLOOD COMPONENT Routine 09/28/2018 11:11 AAA (abdominal Result s for this AM SENIOR SYSTEMS ANALYST aortic aneurysm) procedure a re in (H) the results section. POTASSIUM STAT 09/28/2018 11:11 AAA (abdominal Results f or this AM SENIOR SYSTEMS ANALYST aortic aneurysm) procedure a re in (H) the results section. LIPID PROFILE STAT 09/28/2018 11:11 AAA (abdominal Results for this AM SENIOR SYSTEMS ANALYST aortic aneurysm) procedure a re in (H) the results section. HEMOGLOBIN A1C STAT 09/28/2018 11:11 AAA (abdominal Results for this AM SENIOR SYSTEMS ANALYST aortic aneurysm) procedure a re in (H) the results section. CREATININE STAT 09/28/2018 11:11 AAA (abdominal Results f or this AM SENIOR SYSTEMS ANALYST aortic aneurysm) procedure a re in (H) the results section. ABO/RH TYPE AND STAT 09/28/2018 11:11 AAA (abdominal Result s for this SCREEN AM SENIOR SYSTEMS ANALYST aortic aneurysm) procedure a re in (H) the results section. LAB RESULT - HIM SCAN 09/24/2018 12:00 AM SENIOR SYSTEMS ANALYST EKG CARDIAC - HIM 09/24/2018 12:00 SCAN AM SENIOR SYSTEMS ANALYST documented in this encounter Results CTA Chest with Contrast (09/29/2018 11:38 AM SENIOR SYSTEMS ANALYST) Anatomical Region Laterality Modality Chest, SUBRAD IR PROCEDURE, UMP CT CTA, RAD CT Computed Tomography Specimen (Source) Anatomical Location Collection Method / Collectio n Time Received Time / Laterality Volume Impressions 09/29/2018 4:30 PM SENIOR SYSTEMS ANALYST IMPRESSION: Tortuous descending thoracic aorta with bilobed aneurysmal dilatation measuring up to 50 mm in diameter in the distal descending aorta. JACQUI ODOM MD Narrative 09/29/2018 4:30 PM SENIOR SYSTEMS ANALYST PROCEDURE: CTA of the chest DATE OF [...] ORDERABLES Basic metabolic panel (09/29/2018 10:06 AM SENIOR SYSTEMS ANALYST) [facility] Method Time Signature Sodium 141 133 - 144 09/29/2018 [place] mmol/L 10:31 AM SENIOR SYSTEMS ANALYST [facility] Potassium 4.5 3.4 - 5.3 09/29/2018 [place] mmol/L 10:31 AM [facility] Chloride 109 94 - 109 09/29/2018 [place] mmol/L 10:31 AM [facility] Carbon Dioxide 25 20 - 32 09/29/2018 [place] mmol/L 10:31 AM [facility] Anion Gap 7 3 - 14 09/29/2018 [place] mmol/L 10:31 AM [facility] Glucose 97 70 - 99 09/29/2018 [place] mg/dL 10:31 AM [facility] Urea Nitrogen 18 7 - 30 09/29/2018 [place] mg/dL 10:31 AM [facility] Creatinine 1.25 0.66 - 09/29/2018 [place] 1.25 10:31 AM [facility] GFR Estimate Not Calculated >60 09/29/2018 [place] mL/min/1. 10:[address] GFR Estimate Not Calculated >60 09/29/2018 [place] If Black mL/min/1. 10:[address] Calcium 8.8 8.5 - 09/29/2018 [place] 10.1 10:31 AM [facility] mg/dL [facility] Specimen Anatomical Collection Method Collection Time Receive d Time (Source) Location / / Volume Laterality Blood specimen 09/29/2018 10:06 8 (specimen) AM SENIOR SYSTEMS ANALYST 10:07 AM SENIOR SYSTEMS ANALYST Pam Conde PA-C LAB - BLOOD ORDERABLES Performing Organization Address City/State/ZIP Code Phon e Number M [facility] [address] [address] [facility] [address] [address], [facility] [phone] (ABNORMAL) Glucose by meter (09/29/2018 6:00 AM SENIOR SYSTEMS ANALYST) P athologist Signature Glucose 109 (H) 70 - 99 09/29/2018 POINT [facility] CARE mg/dL 6:18 AM SENIOR SYSTEMS ANALYST TEST, GLUCOSE Specimen Anatomical Collection Method Collection Time Receive d Time (Source) Location / / Volume Laterality 09/29/2018 6:00 AM 8 6:18 SENIOR SYSTEMS ANALYST AM SENIOR SYSTEMS ANALYST Juan Vásquez MD LAB - CAROLYN POCT Performing Organization Address City/State/ZIP Code Phon e Number [facility] POINT OF CARE TEST, GLUCOSE POINT OF CARE TEST, GLUCOSE IR Abdominal Endovascular Stent Graft (09/28/2018 2:17 PM SENIOR SYSTEMS ANALYST) Anatomical Region Laterality Modality Abdomen/Pelvis Radio Fluoroscopy Specimen (Source) Anatomical Location Collection Method / Collectio n Time Received Time / Laterality Volume Impressions 09/29/2018 8:52 AM SENIOR SYSTEMS ANALYST Impression: 1. Thoracic and abdominal angiography de monstrating previously unknown thoracic aortic aneurysm as well as the known abdominal aortic aneurysm 2. Endovascular aneurysm repair was abor clover to allow for further investigation of the thoracic aortic ane urysm and future surgical planning. JACQUI ODOM MD Narrative 09/29/2018 8:52 AM SENIOR SYSTEMS ANALYST PROCEDURE(S): 1. Thoracic and abdominal aortic angiogr [...] aneurysm repair. A timeout was performed per [facility] rsal protocol policy to confirm [...] aorta. Exchange was made for a 6 Nigerian vascula r sheath. 18-gauge singlewall needle was then advanced into the left c ommon femoral artery through which a 0.035 inch Bentson wire was adva nced in the abdominal aorta. Exchange is made for a 6 Nigerian vascular sheath. Via the left groin access, a 5 Nigerian pigtail catheter was advanced over the Bentson wire into the abdominal aorta. Via the right groin, a 5 Nigerian pigtail catheter was advanced over the Bentson [...] aneurysm repair. A timeout was performed per [facility] protocol policy to confirm the correct patient, site and pr ocedure to be performed. Please note that due to the complex natu re of the procedure, a multi-disciplinary approach was used [facility] involved Mili Vásquez and Lei functioning as co-surgeons for t his procedure. Bilateral common femoral arteries were s urgically exposed, see separate operative report for details. A n 18-gauge singlewall needle was then inserted into the right common femoral artery through which a 0.035 inch Bentson wire was advanced int o the abdominal aorta. Exchange was made for a 6 Nigerian vascula r sheath. 18-gauge singlewall needle was then advanced into the left c ommon femoral artery through which a 0.035 inch Bentson wire was adva nced in the abdominal aorta. Exchange is made for a 6 Nigerian vascular sheath. Via the left groin access, a 5 Nigerian pigtail catheter was advanced over the Bentson wire into the abdominal aorta. Via the right groin, a 5 Nigerian pigtail catheter was advanced over the Bentson [...] EKG 12-lead, tracing only (09/28/2018 11:42 AM SENIOR SYSTEMS ANALYST) [facility] [employer] Method Time Signature Interpretation ECG Click View RADIOLOGY Image link RESULTS to view waveform and result Specimen (Source) Anatomical Collection Method Collection Time Re ceived Time Location / / Volume Laterality 09/28/2018 11:42 AM SENIOR SYSTEMS ANALYST Juan Vásquez MD ECG ORDERABLES Performing Organization Address City/State/ZIP Code Phon e Number RADIOLOGY RESULTS XR Chest 1 View (09/28/2018 11:21 AM SENIOR SYSTEMS ANALYST) Anatomical Region Laterality Modality Chest Digital Radiography Specimen (Source) Anatomical Location Collection Method / Collectio n Time Received Time / Laterality Volume Impressions 09/28/2018 1:09 PM SENIOR SYSTEMS ANALYST IMPRESSION: Heart size similar to prior. The thoracic aorta is elongated. No airspace consolidation or pneumothorax. There appears to be a small right pleural effusion. ELAINA HUNTLEY MD Narrative 09/28/2018 1:09 PM SENIOR SYSTEMS ANALYST CHEST ONE VIEW ??09/28/2018 11:21 AM HISTORY: [...] ORDER BRAYDEN Blood component (09/28/2018 11:11 AM SENIOR SYSTEMS ANALYST) [facility] [employer] Method Time Signature Unit Number [id number] 09/28/2018 [facility] 1:21 PM [facility] Blood Red Blood 09/28/2018 [facility] Component Cells 1:21 PM [facility] HOSPITAL Reduced Division 00 09/28/2018 [facility] Number 1:21 PM [facility] Status of No longer 10/02/2018 [facility] Unit available 3:00 AM [facility] 10/02/2018 HOSPITAL 0300 Blood Product [id number] 09/28/2018 [facility] Code 1:21 PM SENIOR SYSTEMS ANALYST [facility] Unit Status [facility] Specimen Anatomical Collection Method Collection Time Receive d Time (Source) Location / / Volume Laterality 09/28/2018 11:11 09/28/2018 AM SENIOR SYSTEMS ANALYST 11:44 AM SENIOR SYSTEMS ANALYST Juan Vásquez MD LABORATORY Performing Organization Address City/State/ZIP Code Phon e Number M [facility] [address] [place], [place] [address] [facility] [address] [address], [facility] [address] [place], [place] [address], [facility] [phone] Blood component (09/28/2018 11:11 AM SENIOR SYSTEMS ANALYST) [facility] gist Method Time Signature Unit Number [id number] 09/28/2018 [facility] 1:21 PM [facility] Blood Red Blood 09/28/2018 [place] Component Cells 1:21 PM [facility] Reduced Division 00 09/28/2018 [facility] Number 1:21 PM [facility] Status of No longer 10/02/2018 [facility] Unit available 3:00 AM [facility] 10/02/2018 HOSPITAL 0300 Blood Product [id number] 09/28/2018 [facility] Code 1:21 PM [facility] Unit Status [facility] Specimen Anatomical Collection Method Collection Time Receive d Time (Source) Location / / Volume Laterality 09/28/2018 11:11 09/28/2018 AM SENIOR SYSTEMS ANALYST 11:44 AM SENIOR SYSTEMS ANALYST Juan Vásquez MD LABORATORY Performing Organization Address City/State/ZIP Code Phon e Number M [facility] [address] [place], [place] [address] [facility] [address] [address], [facility] [address] [place], [place] [address], [facility] [phone] Potassium (09/28/2018 11:11 AM SENIOR SYSTEMS ANALYST) athologist Signature Potassium 4.0 3.4 - 5.3 09/28/2018 [place] mmol/L 12:22 PM [facility] Specimen Anatomical Collection Method Collection Time Receive d Time (Source) Location / / Volume Laterality Blood specimen 09/28/2018 11:11 8 (specimen) AM SENIOR SYSTEMS ANALYST 11:43 AM SENIOR SYSTEMS ANALYST Ramiro Card MD LAB - BLOOD ORDERABLES Performing Organization Address City/State/ZIP Code Phon e Number M [facility] [address] [place] [address] [facility] [address] [place] [address], [place] [phone] Lipid panel (09/28/2018 11:11 AM SENIOR SYSTEMS ANALYST) Analysis Performed At Patho logist Time Signature Cholesterol 143 <200 mg/dL 09/28/2018 [place] 12:22 PM [facility] Triglycerides 115 <150 mg/dL 09/28/2018 [facility] 12:24 PM [facility] HDL Cholesterol 68 >39 mg/dL 09/28/2018 [facility] 12:24 PM [facility] LDL Cholesterol 52 <100 mg/dL 09/28/2018 [facility] Calculated 12:24 PM [facility] Comment: Desirable: <100 mg/dl Non HDL Cholesterol 75 <130 mg/dL 09/28/2018 12:24 PM [facility] Specimen Anatomical Collection Method Collection Time Receive d Time (Source) Location / / Volume Laterality Blood specimen 09/28/2018 11:11 8 (specimen) AM SENIOR SYSTEMS ANALYST 11:43 AM SENIOR SYSTEMS ANALYST Juan Vásquez MD LAB - BLOOD ORDERABLES Performing Organization Address City/State/ZIP Code Phon e Number M [facility] [address] [place] [address] [facility] [address] [place] [address], [place] [phone] (ABNORMAL) ABO/Rh type and screen (09/28/2018 11:11 AM SENIOR SYSTEMS ANALYST) Component Value Ref Test Analysis Performed At Patholo gist Range Method Time Signature Units Ordered 2 09/28/2018 [facility] 11:54 AM [facility] ABO O 09/28/2018 [facility] 12:28 PM [facility] RH(D) Pos [facility] Antibody Screen Pos (A) 09/28/2018 [facility] 12:28 PM [facility] Test Valid Only [place] 09/28/2018 [facility] 11:47 AM [facility] Specimen Expires 10/01/2018 09/28/2018 [facility] 11:47 AM [facility] Crossmatch Red Blood Cells 09/28/2018 [facility] 11:54 AM [facility] Blood Bank Delay in availability of Red Blood Cells called to 09/28/2018 [facility] Comment Esme in Preop at 1228 re 12:37 PM [facility] Antibody ANTI-Rosa 09/28/2018 [facility] Identification 1:26 PM [facility] Antigen Type Rosa Negative 09/28/2018 [facility] 1:26 PM [facility] Specimen Anatomical Collection Method Collection Time Receive d Time (Source) Location / / Volume Laterality Blood specimen 09/28/2018 11:11 8 (specimen) AM SENIOR SYSTEMS ANALYST 11:44 AM SENIOR SYSTEMS ANALYST Juan Vásquez MD LAB - BLOOD BANK TEST ORDER Performing Organization Address City/State/ZIP Code Phon e Number M [facility] [address] [address] [phone] [facility] [address] [address], [facility] [phone] (ABNORMAL) Hemoglobin A1c (09/28/2018 11:11 AM SENIOR SYSTEMS ANALYST) P athologist Signature Hemoglobin A1C 5.7 (H) 0 - 5.6 % 09/28/2018 [facility] 12:08 PM [facility] Comment: Normal <5.7% Prediabetes 5.7-6.4% ??Diab etes 6.5% or higher - adopted from ADA consensus guidelines. Specimen Anatomical Collection Method Collection Time Receive d Time (Source) Location / / Volume Laterality Blood specimen 09/28/2018 11:11 8 (specimen) AM SENIOR SYSTEMS ANALYST 11:43 AM SENIOR SYSTEMS ANALYST Juan Vásquez MD LAB - BLOOD ORDERABLES Performing Organization Address City/State/ZIP Code Phon e Number M [facility] [address] [address] [phone] [facility] [address] [address], [place] [phone] (ABNORMAL) Creatinine (09/28/2018 11:11 AM SENIOR SYSTEMS ANALYST) P athologist Signature Creatinine 1.46 (H) 0.66 - 09/28/2018 [place] 1.25 mg/dL 12:22 PM [facility] GFR Estimate 47 (L) >60 09/28/2018 [place] mL/min/1.7 12:[address] Comment: Non GFR Calc GFR Estimate If 57 (L) >60 mL/min/1.7m2 09/28/2018 12:22 PM [facility] Comment: GFR Calc Specimen Anatomical Collection Method Collection Time Receive d Time (Source) Location / / Volume Laterality Blood specimen 09/28/2018 11:11 8 (specimen) AM SENIOR SYSTEMS ANALYST 11:43 AM SENIOR SYSTEMS ANALYST Juan Vásquez MD LAB - BLOOD ORDERABLES Performing Organization Address City/State/ZIP Code Phon e Number Jami [facility] [address] [address] [phone] [facility] [address] [address], [place] [phone] LAB RESULT - HIM SCAN (09/24/2018 12:00 AM SENIOR SYSTEMS ANALYST) Specimen (Source) Anatomical Location Collection Method / Collectio n Time Received Time / Laterality Volume 09/24/2018 Narrative This result has an attachment that is no t available. Provider Outside NON-BEAKER LAB TESTING EKG CARDIAC - HIM SCAN (09/24/2018 12:00 AM SENIOR SYSTEMS ANALYST) Specimen (Source) Anatomical Location Collection Method [...] (TYLENOL) tablet 975 Given 09/29/2018 5:41 AM SENIOR SYSTEMS ANALYST 975 mg mg 975 mg, Oral, EVERY 8 HOURS, First dose on Thu09/28/18 at 2200, For 3 days, Do not use if patient has an active opioid/acetaminophen combined analgesic product ordered for pain. Maximum acetaminophen dose from all sources = 75 mg/kg/day not to exceed 4 grams/day., Post-procedure Given 09/28/2018 9:50 PM SENIOR SYSTEMS ANALYST 975 mg atorvastatin (LIPITOR) tablet 40 mg Given 09/28/2018 9:50 PM SENIOR SYSTEMS ANALYST 40 mg 40 mg, Oral, EVERY EVENING, First dose on Thu09/28/18 at 2000 heparin 10,000 units in 1000 mL 0.9% Given 09/28/2018 1:37 PM CS T 1,000 mLs sodium chloride PRN, Starting on Thu09/28/18 at 1335, Intra-procedure Given 09/28/2018 1:36 PM SENIOR SYSTEMS ANALYST 1,000 mLs Given 09/28/2018 1:35 PM SENIOR SYSTEMS ANALYST 1,000 mLs lactated ringers infusion New Bag 09/29/2018 2:48 AM SENIOR SYSTEMS ANALYST 125 mL/hr at 125 mL/hr, Intravenous, CONTINUOUS, NOT for patient on renal dialysis. Saline lock after 1 liter if taking PO fluids., Post-procedure, Starting on Thu09/28/18 at 1800, Until Thu09/29/18 at 1753 Rate/Dose Verify 09/29/2018 12:39 AM SENIOR SYSTEMS ANALYST 125 mL/hr New Bag 09/28/2018 6:31 PM SENIOR SYSTEMS ANALYST 125 mL/hr lisinopril (PRINIVIL/ZESTRIL) tablet 5 m g Given 09/29/2018 8:21 AM SENIOR SYSTEMS ANALYST 5 mg 5 mg, Oral, 2 TIMES DAILY, First dose on Thu09/28/18 at 2100 Given 09/28/2018 9:52 PM SENIOR SYSTEMS ANALYST 5 mg melatonin tablet 10 mg Given 09/29/2018 2:48 AM SENIOR SYSTEMS ANALYST 10 mg 10 mg, Oral, AT BEDTIME PRN, sleep, Starting on Thu09/29/18 at 0044 metoprolol tartrate (LOPRESSOR) tablet 5 0 mg Given 09/29/2018 8:21 AM SENIOR SYSTEMS ANALYST 50 mg 50 mg, Oral, 2 TIMES DAILY, First dose on Thu09/28/18 at 2100 Given 09/28/2018 9:50 PM SENIOR SYSTEMS ANALYST 50 mg oxyCODONE (ROXICODONE) tablet 5 mg Given 09/28/2018 10:49 PM SENIOR SYSTEMS ANALYST 5 mg 5 mg, Oral, EVERY 3 HOURS PRN, other, pain control or improvement in physical function. Hold dose for analgesic side effects., Starting on Thu09/28/18 at 1751, Notify provider to assess for uncontrolled pain or analgesic side effects. Hold while on TEMPLATE CUTTER or with regular IV opioid dosing. Maximum total is 40 mg in 24 hours., Post-procedure sodium chloride (PF) 0.9% PF flush 3 mL Given 09/28/2018 9:58 PM SENIOR SYSTEMS ANALYST 3 mLs 3 mL, Intracatheter, EVERY 8 HOURS, First dose on Thu09/28/18 at 2200, And Q1H PRN, to lock peripheral IV dormant line., Post-procedure terazosin (HYTRIN) capsule 5 mg Given 09/28/2018 10:49 PM SENIOR SYSTEMS ANALYST 5 mg 5 mg, Oral, AT BEDTIME, First dose on Thu09/28/18 at 2200 documented in this encounter Active and Recently Administered Medications Times are shown in SENIOR SYSTEMS ANALYST. Scheduled Medication Order 09/27/2018 09/28/2018 09/29/2018 acetaminophen [...] Volume Adjustment - Provider: Mattie Marmolejo APRN MANAGER CHANNEL)1432 (Anesthesia Volume Adjustment - Provider: Mattie Marmolejo APRN MANAGER CHANNEL) at 25 mL/hr, Intravenous, CONTINUOUS, IF patient [...] response., Post-procedure oxyCODONE (ROXICODONE) tablet 5 mg 9860 (Given - Provider: Ira South, JOSE) 5 mg, Oral, EVERY 3 HOURS PRN, other, pa in control or improvement in physical function. Hold dose for analgesic side effects., Starting Thu09/28/18 at 1751, Notify provider to assess for uncontrolled p ain or analgesic side effects. Hold whil e on TEMPLATE CUTTER or with regular IV opioid dosing. Maximum total is 40 mg in 24 hours., Post-procedure sodium chloride (PF) 0.9% PF flush 3 mL 3 mL, Intracatheter, EVERY 1 HOUR PRN, l ine flush, for peripheral IV flush post IV meds, Starting Thu09/28/18 at 1751, Post-procedure documented in this encounter Care Teams Animal Keeper Head Relationship Specialty Start Date End Date Clinic, [facility] PCP - General 05/12/[address] [place] [id number] documented as of this encounter
--- OUTSIDE RECORDS SUMMARY | 2022-07-17 13:55 | XMS_ITS | Encounter Summary ---
:1940 Author Organization [place] Address [address] [facility] 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 Juan Lewis THORACIC ENDOVASCULAR [place] PeriOP MD Elijah ANEURYSM REPAIR WITH Services [address] [employer], [address] [place] [address] [place] [address] [phone] Surgery Details Date/Time Status Location OR Service [...] Comments Blood Pressure 159/88 11/05/2018 9:00 AM HOSPITAL SALES REPRESENTATIVE Pulse 57 11/05/2018 9:00 AM HOSPITAL SALES REPRESENTATIVE Temperature 36.7 ??C (98.1 ??F) 11/05/2018 6:27 AM HOSPITAL SALES REPRESENTATIVE Respiratory Rate 21 11/05/2018 9:05 AM HOSPITAL SALES REPRESENTATIVE Oxygen Saturation 100% 11/05/2018 9:05 AM HOSPITAL SALES REPRESENTATIVE Inhaled Oxygen Concentration - - Weight 84.3 kg (185 lb 14.4 oz) 11/05/2018 6:27 AM HOSPITAL SALES REPRESENTATIVE Height 167.6 cm (5' 6) 11/05/2018 6:27 AM HOSPITAL SALES REPRESENTATIVE Body Mass Index 31.06 11/05/2018 6:27 AM HOSPITAL SALES REPRESENTATIVE documented in this encounter Discharge Summaries Bessy Mccray MD - 11/09/2018 10:56 AM CST Physician Discharge Summary Patient ID: Speedy Hendricks [id number] 78 year old 1940 Admit date: 11/05/2018 [...] an oral diet. He was discharged to [facility] on POD#4 in stable condition. Consults: pulmonary/intensive [...] to. Signed: Bessy Mccray 11/09/2018 10:56 AM ITAL SALES REPRESENTATIVE Associated attestation - Juan Lewis MD - 11/11/2018 3:10 PM HOSPITAL SALES REPRESENTATIVE Physician Attestation I, Juan Lewis, have reviewed [...] Traylor RN - 11/09/2018 11:47 AM CST ITAL SALES REPRESENTATIVE AttachmentsThe following attachments cannot be sent through Care Everywhere.(S) TREATING A THORACIC AORTIC ANEURYSM (TAA): ENDOVASCULAR GRAFT (INDONESIAN) documented in this encounter Medications at Time [...] home with family via car.All questions answered. ITAL SALES REPRESENTATIVE Gurwinder Godoy MD - 11/09/2018 12:02 PM CST [facility] Vascular Medicine Progress Note Date of Service (when I saw the patient): 11/09/2018 Physician Supervisory Attestation: I have reviewed and discussed with the physician perinatal breastfeeding assistant their history, physical and plan and [...] Discussed with vascular surgery service. Gurwinder Godoy MD,[facility] Vascular Medicine service 11/09/2018 Assessment [...] Rate: 93 Resp: 22 SpO2: 93 % R8Lkioma: None (Room air) Vitals: 11/06/18 0211 11/07/18 [...] = values in this interval not displayed. ITAL SALES REPRESENTATIVE Bessy Mccray MD - 11/09/2018 7:36 AM [...] Bessy Martinez MD Vascular Surgery Fellow Pager ITAL SALES REPRESENTATIVE Associated attestation - Butch Brown MD - 11/16/2018 9:50 AM HOSPITAL SALES REPRESENTATIVE I was involved with the assessment and plan, and I agree with the findings and plan of care as documented in the fellow's note. MD Wilfredo Castillo Carley, RN - 11/08/2018 6:35 PM CST Pt arrived to station 33 @ 1820 ITAL SALES REPRESENTATIVE Aura Crooks RN - 11/08/2018 5:05 PM CST Pt had drained removed this AM. Draining moderate amount- MDA aware. SR. BP wnl- gave hydralazine x1prn. Chapman to be removed prior to transfer. Lines out and hemostasis achieved. Up to chair- tolerated well, SBA. Frequent neuros- wnl. Will call report to [facility] and will transfer at . ITAL SALES REPRESENTATIVE Dimas Chapman MD - 11/08/2018 12:41 PM CST [facility] Vascular Medicine Progress Note Date of Service [...] -- AST 19 -- -- -- -- ITAL SALES REPRESENTATIVE Bessy Mccray MD - 11/08/2018 8:18 AM [...] Bessy Martinez MD Vascular Surgery Fellow Pager ITAL SALES REPRESENTATIVE Associated attestation - Butch Brown MD - 11/16/2018 3:00 PM HOSPITAL SALES REPRESENTATIVE I was involved with the assessment and [...] please contact primary service first. Kaleb Rodriguez ITAL SALES REPRESENTATIVE Kristy Castañeda RN - 11/08/2018 6:50 AM CST [address] Tobin at bedside and removed lumbar drain. Pt tolerated well. Neuro checks q 30 min for the next 6 hours. Dry gaze and Tegaderm to site. Kristy Gamez RN ITAL SALES REPRESENTATIVE Zakia Tobin MD - 11/08/2018 6:47 AM [...] drain tubing following unclamping[place] [address]212 down from 100s yesterday. At this time, [...] Nunes MD - 11/07/2018 11:55 AM CST Tennis Net Maker: S: Mild groin pain this morning, but [...] Dr. Staley of vascular medicine at bedside. Tennis Net Maker service will sign off for now. Please re-consult as needed. Gurwinder Manning MD - 11/07/2018 9:09 AM CST [facility] Vascular Medicine Progress Note Date of Service [...] If any change in neuro status contact [facility] surgery first and consider neurocritical [...] good Reviewed last night events, discussed with Tennis Net Maker and ICU nursing staff this am. Patients [...] . Avoid nephrotoxic meds. ?? Gurwinder Godoy MD,FS,[facility] Vascular Medicine Interval History Reviewed last night events, off of osile, BP elevated Lumbar/spinal drain clamped and this [...] 7.8* 8.6 -- GLC 115* 121* -- ITAL SALES REPRESENTATIVE Danette Peck RN - 11/07/2018 8:50 AM [...] to keep SBP <160 and MAP >80. ITAL SALES REPRESENTATIVE Gurwinder Godoy MD - 11/06/2018 12:00 PM CST [facility] Vascular Medicine Progress Note Date of Service [...] . Avoid nephrotoxic meds. ?? Gurwinder Godoy MD,[facility] Vascular Medicine Interval History Reviewed [...] 7.8* 8.6 -- GLC 115* 121* -- ITAL SALES REPRESENTATIVE Millie Handley APRN SENIOR CIVIL ENGINEER - 11/06/2018 11:55 AM CST Critical Care [...] Total critical care time today 35 min. ITAL SALES REPRESENTATIVE Associated attestation - Bishop Tran MD - 11/12/2018 10:50 AM HOSPITAL SALES REPRESENTATIVE Physician Attestation I, Bishop Tran, have reviewed [...] sufficient urine. Continue plan as documented in CIVIL ENGINEERING PROFESSOR note. The patient does not seem to [...] admission is complete. See [facility] admission navigator for prior to admission medications Medication history source reliability:Good Medication history interview source(s):Patient Medication history resources (including written lists, pill bottles, clinic record):Patient mailed in his medication list prior to surgery Primary pharmacy.[facility] Additional medication history information not noted on CAR RECORD CLERK med list :None Time spent in this [...] Bedtime 11/04/2018 at 2200 Yes Reported, Patient ITAL SALES REPRESENTATIVE documented in this encounter Procedure Notes Missael [...] management per anethesia/vasc surg Missael Garcia MD [phone] ITAL SALES REPRESENTATIVE documented in this encounter Consult Notes Kaleb Rodriguez NP - 11/05/2018 5:14 PM CSTAssociated Order(s): RECONCILING CLERK IP CONSULT [facility] Consult Critical Care Service Date of Admission: [...] Code Status Full Code Primary Care Physician [facility] Chief Complaint S/p TEVAR History of [...] IR Lumbar Drain Placement w Fluoro Narrative [facility] RADIOLOGY INTERVENTIONAL NEURORADIOLOGY PROCEDURAL NOTE FLUOROSCOPICALLY GUIDED [...] CPT codes included for physician reference only: 26209/98352 MISSAEL GARCIA MD Glucose by meter Result Value Ref Range Glucose 124 (H) 70 - 99 mg/dL ITAL SALES REPRESENTATIVE Associated attestation - Olive Bello MD - 11/05/2018 10:58 PM HOSPITAL SALES REPRESENTATIVE ICU STAFF: I have discussed Mr. Hendricks's [...] management per vascular surgery. Olive Bello MD #[id number] 11/05/18 Bill as Advanced Practice Provider only. Gurwinder Godoy MD - 11/05/2018 1:40 PM CST [facility] Vascular Medicine Consultation Date of Admission: 11/05/2018 Date of Consult (When I saw the patient): 11/05/18 Physician Supervisory Attestation: I have reviewed and discussed with the physician perinatal breastfeeding assistant their history, physical and plan and [...] consult Copy to Dr. Debbie Godoy MD ,[facility] Vascular Medicine 11/05/2018 Assessment & [...] 78 year old male Primary Care Physician [facility] History of Present Illness Speedy Hendricks [...] Labs Lab Test 11/05/18 0655 A1C 5.2 ITAL SALES REPRESENTATIVE documented in this encounter Nursing Notes Isis Rivera, JOSE - 11/05/2018 8:40 AM CST Noted swelling left ankle ITAL SALES REPRESENTATIVE documented in this encounter Miscellaneous Notes Plan [...] sites soft, bruised, CMS intact. Voiding okay. ITAL SALES REPRESENTATIVE Plan of Care - Misty Villalobos RN - 11/08/2018 7:10 PM CST A/O x4. AVSS on RA. Tele NSR. Hydralazine given x1. Up SBA. Neuros intact. CMS intact. Groin sites, steri strips. Back site, moist drainage. Pulses, palpable, +2. Regular diet. Chapman removed at 1740, Due to void. ITAL SALES REPRESENTATIVE Provider Notification - Aura Crooks RN - 11/08/2018 11:37 AM CST MD NOTIFICATION Person Notified: MDA Notified Person's Name: Yeimi Notification Date/Time: 11/08/2017 1135 Notification Interaction: Paged physician Purpose of Notification: Pt remains to have drainage from lumbar drain site. Orders Received: MDA to come assess pt. ITAL SALES REPRESENTATIVE Plan of Care - Kristy Castañeda RN [...] access readiness for lumbar drain removal today. ITAL SALES REPRESENTATIVE Provider Notification - Kristy Castañeda RN - [...] assess pulling the drain. Kristy Castañeda RN ITAL SALES REPRESENTATIVE Plan of Care - Aura Crooks RN - 11/07/2018 6:17 PM CST Neuro: LUCAS- strength 5/5. PERRL. Complains of soreness in groin/hips from moving them too much. Ptup in chair for a hour and tolerated well. Ok'd with Anesthesia MD, [place], to get up in chair forno more [...] some blood in tubing- Anesthesia MD aware. ITAL SALES REPRESENTATIVE Plan of Care - Danette Peck RN - 11/07/2018 1:12 PM CST [id number] Continued with numbness bilateral top of thighs. [...] and dtr in room when Drs here. ITAL SALES REPRESENTATIVE Provider Notification - Ramiro Lozano RN - 11/07/2018 6:17 AM CST Paged vascular surgery fellow Ashanti regarding new numbness to anterior thighs. CSF has been drained, will begin 500ml bolus unless directed otherwise. ITAL SALES REPRESENTATIVE Plan of Care - Ramiro Lozano RN [...] clamped now. Daughter Raquel updated this morning. ITAL SALES REPRESENTATIVE Provider Notification - Ramiro Lozano RN - 11/07/2018 5:[address] Wang regarding new leg pain and ICP increase. Opening drain for 15ml CSF over 1 hr per order. ITAL SALES REPRESENTATIVE Plan of Care - Danette Peck RN - 11/06/2018 4:34 PM CST [id number] Neuro checks remain intact. Able to move [...] be retested for MRSA per infection control. ITAL SALES REPRESENTATIVE Plan of Care - Ramiro Lozano RN [...] this shift. Daughter Raquel updated this morning. ITAL SALES REPRESENTATIVE Plan of Care - Danette Peck RN - 11/05/2018 9:43 PM CST [phone] Neuro: intact. Able to move hips slightly [...] by physicians. Care transferred to next nurse. ITAL SALES REPRESENTATIVE Provider Notification - Ramiro Lozano RN - 11/05/2018 7:46 PM CST Notified researcher regarding failure to meet MAP goal of 80, new orders received. ITAL SALES REPRESENTATIVE Op Note - Butch Brown MD - [...] descending aortic angiogram SURGEON: Butch Brown MD DAY LIGHT RELIEF OPERATOR: Kannan Starks MD; Bessy Mas MD - [...] then able to upsized to a 6 American sheath over a Bentson wire.The patient was [...] femoral artery and upsized to an 11 American sheath. We then able to insert JULIANE [...] was removed and backfilled with a 16 American dry seal on the left.At this point [...] superficial femoral artery access which was 6 American sheath with an Angio-Seal closure device performed [...] the drain. Butch Brown MD Vascular Surgery ITAL SALES REPRESENTATIVE Brief Op Note - Bessy Mccray MD - 11/05/2018 12:29 PM CST [facility] Brief Operative Note Pre-operative diagnosis: DESCENDING THORACIC [...] Palp DP bilaterally Complications: None. Implants: None. ITAL SALES REPRESENTATIVE Associated attestation - Butch Brown MD - 11/05/2018 1:09 PM HOSPITAL SALES REPRESENTATIVE Butch Brown MD IR Note - Gwen Rivas RN - 11/05/2018 10:27 AM CST Interventional Radiology Intra-procedural Nursing Note Patient Name: Speedy Hendricks Today's Date: November 05, 2018 Start Time: 849 End of procedure time: 904 Procedure: lumbar drain placement Report given to: Dr. See, anesthesia Time pt departs: 0920 Hospitality Specialist: n/a Other Notes: patient tolerated well. Drain connected to closed drainage system flushed with preservative free NS per Dr. Haro. 1mg Versed and 50mcg Fentanyl IV given for additional sedation (had received 4mg Versed and 100mcg Fentanyl in pre-op prior to arrival). SR on monitor .VSS. Patient taken back to pre-op bay in stable condition. Gwen Rivas RNmeat team lead Radiology ITAL SALES REPRESENTATIVE documented in this encounter Plan of Treatment Not on filedocumented as of this encounter Procedures Procedure Name Priority Date/Time Associated Comments Diagnosis CBC WITH PLATELETS & Routine 11/09/2018 7:41 AM Descending tho racic Results for this DIFFERENTIAL HOSPITAL SALES REPRESENTATIVE aortic aneurysm (H) procedur e are in the results section. COMPREHENSIVE Routine 11/09/2018 7:41 AM Descending thoracic R esults for this METABOLIC PANEL HOSPITAL SALES REPRESENTATIVE aortic aneurysm (H) proce dure are in the results section. MAGNESIUM Routine 11/08/2018 3:40 AM Descending thoracic Re sults for this HOSPITAL SALES REPRESENTATIVE aortic aneurysm (H) procedur e are in the results section. COMPREHENSIVE Routine 11/08/2018 3:40 AM Descending thoracic R esults for this METABOLIC PANEL HOSPITAL SALES REPRESENTATIVE aortic aneurysm (H) proce dure are in the results section. CBC WITH PLATELETS Routine 11/08/2018 3:40 AM Descending thora cic Results for this HOSPITAL SALES REPRESENTATIVE aortic aneurysm (H) procedur e are in the results section. CBC WITH PLATELETS STAT 11/07/2018 3:00 PM Descending thora cic Results for this HOSPITAL SALES REPRESENTATIVE aortic aneurysm (H) procedur e are in the results section. CBC WITH PLATELETS & Timed 11/07/2018 9:50 AM Descending tho racic Results for this DIFFERENTIAL HOSPITAL SALES REPRESENTATIVE aortic aneurysm (H) procedur e are in the results section. MAGNESIUM Routine 11/07/2018 9:50 AM Descending thoracic Re sults for this HOSPITAL SALES REPRESENTATIVE aortic aneurysm (H) procedur e are in the results section. BASIC METABOLIC PANEL Timed 11/07/2018 9:50 AM Descending th oracic Results for this HOSPITAL SALES REPRESENTATIVE aortic aneurysm (H) procedur e are in the results section. GLUCOSE BY METER Routine 11/07/2018 7:44 AM Descending thoraci c Results for this HOSPITAL SALES REPRESENTATIVE aortic aneurysm (H) procedur e are in the results section. GLUCOSE BY METER Routine 11/07/2018 3:49 AM Descending thoraci c Results for this HOSPITAL SALES REPRESENTATIVE aortic aneurysm (H) procedur e are in the results section. GLUCOSE BY METER Routine 11/07/2018 12:08 Descending thoracic Results for this AM HOSPITAL SALES REPRESENTATIVE aortic aneurysm (H) procedur e are in the results section. GLUCOSE BY METER Routine 11/06/2018 7:53 PM Descending thoraci c Results for this HOSPITAL SALES REPRESENTATIVE aortic aneurysm (H) procedur e are in the results section. GLUCOSE BY METER Routine 11/06/2018 11:02 Descending thoracic Results for this AM HOSPITAL SALES REPRESENTATIVE aortic aneurysm (H) procedur e are in the results section. GLUCOSE BY METER Routine 11/06/2018 7:38 AM Descending thoraci c Results for this HOSPITAL SALES REPRESENTATIVE aortic aneurysm (H) procedur e are in the results section. LACTIC ACID WHOLE Routine 11/06/2018 4:15 AM Descending thorac ic Results for this BLOOD HOSPITAL SALES REPRESENTATIVE aortic aneurysm (H) procedur e are in the results section. BASIC METABOLIC PANEL Routine 11/06/2018 4:15 AM Descending th oracic Results for this HOSPITAL SALES REPRESENTATIVE aortic aneurysm (H) procedur e are in the results section. CBC WITH PLATELETS Routine 11/06/2018 4:15 AM Descending thora cic Results for this HOSPITAL SALES REPRESENTATIVE aortic aneurysm (H) procedur e are in the results section. GLUCOSE BY METER Routine 11/06/2018 1:12 AM Descending thoraci c Results for this HOSPITAL SALES REPRESENTATIVE aortic aneurysm (H) procedur e are in the results section. MRSA MSSA PCR, NASAL STAT 11/05/2018 11:41 Descending thora cic Results for this SWAB PM HOSPITAL SALES REPRESENTATIVE aortic aneurysm (H) procedur e are in the results section. GLUCOSE BY METER Routine 11/05/2018 8:16 PM Descending thoraci c Results for this HOSPITAL SALES REPRESENTATIVE aortic aneurysm (H) procedur e are in the results section. GLUCOSE BY METER Routine 11/05/2018 4:39 PM Descending thoraci c Results for this HOSPITAL SALES REPRESENTATIVE aortic aneurysm (H) procedur e are in the results section. INR STAT 11/05/2018 4:35 PM Descending thoracic Re sults for this HOSPITAL SALES REPRESENTATIVE aortic aneurysm (H) procedur e are in the results section. LACTIC ACID WHOLE STAT 11/05/2018 4:35 PM Descending thorac ic Results for this BLOOD HOSPITAL SALES REPRESENTATIVE aortic aneurysm (H) procedur e are in the results section. BASIC METABOLIC PANEL STAT 11/05/2018 4:35 PM Descending th oracic Results for this HOSPITAL SALES REPRESENTATIVE aortic aneurysm (H) procedur e are in the results section. CBC WITH PLATELETS STAT 11/05/2018 4:35 PM Descending thora cic Results for this HOSPITAL SALES REPRESENTATIVE aortic aneurysm (H) procedur e are in the results section. IR THORACIC Routine 11/05/2018 12:09 Descending thoracic Resu lts for this ENDOVASCULAR STENT PM HOSPITAL SALES REPRESENTATIVE aortic aneurysm (H) pr ocedure are in GRAFT the results section. REPAIR, ANEURYSM, 11/05/2018 9:35 AM DESCENDING THORAC IC THORACIC AORTIC, HOSPITAL SALES REPRESENTATIVE AORTIC ANEURYSM ENDOVASCULAR Special Needs BLOOD TRANSFUSION ISSUE (RAR E ANTIBODIES) PT WILL DO A TYPE AND CROSS ON 11/03 JALEEL 10/28 IR LUMBAR DRAIN Routine 11/05/2018 9:10 AM Result s for this PLACEMENT W [place] HOSPITAL SALES REPRESENTATIVE procedure are in the results section. EKG 12-LEAD, TRACING STAT 11/05/2018 6:58 AM R esults for this ONLY HOSPITAL SALES REPRESENTATIVE procedure are i n the results section. POTASSIUM STAT 11/05/2018 6:55 AM Descending thoracic Re sults for this HOSPITAL SALES REPRESENTATIVE aortic aneurysm (H) procedur e are in the results section. LIPID PROFILE STAT 11/05/2018 6:55 AM Descending thoracic R esults for this HOSPITAL SALES REPRESENTATIVE aortic aneurysm (H) procedur e are in the results section. HEMOGLOBIN A1C STAT 11/05/2018 6:55 AM Descending thoracic Results for this HOSPITAL SALES REPRESENTATIVE aortic aneurysm (H) procedur e are in the results section. CREATININE STAT 11/05/2018 6:55 AM Descending thoracic Re sults for this HOSPITAL SALES REPRESENTATIVE aortic aneurysm (H) procedur e are in the results section. XR CHEST PORT 1 VIEW STAT 11/05/2018 6:40 AM R esults for this HOSPITAL SALES REPRESENTATIVE procedure are i n the results section. EKG CARDIAC - HIM 09/24/2018 12:00 AM SCAN HOSPITAL SALES REPRESENTATIVE documented in this encounter Results (ABNORMAL) CBC with platelets differential (11/09/2018 7:41 AM HOSPITAL SALES REPRESENTATIVE) Component Value Ref Test Analysis Performed At [facility] gist Range Method Time Signature WBC 9.3 4.0 - 11/09/2018 [facility] 11.0 8:06 AM [facility] 10e9/L [facility] RBC Count 3.55 (L) 4.4 - 11/09/2018 [facility] 5.9 8:06 AM [facility] 10e12[facility] Hemoglobin 11.3 (L) 13.3 - 11/09/2018 [facility] 17.7 8:06 AM [facility] Hematocrit 33.7 (L) 40.0 - 11/09/2018 [facility] 53.0 % 8:06 AM [facility] MCV 95 78 - 100 11/09/2018 [facility] fl 8:06 AM [facility] MCH 31.8 26.5 - 11/09/2018 [facility] 33.0 pg 8:06 AM [facility] MCHC 33.5 31.5 - 11/09/2018 [facility] 36.5 8:06 AM [facility] RDW 13.9 10.0 - 11/09/2018 [facility] 15.0 % 8:06 AM [facility] Platelet Count 83 (L) 150 - 11/09/2018 [facility] 450 8:[address] Diff Method Manual 11/09/2018 [facility] Differential 8:31 AM [facility] % Neutrophils 85.0 % 11/09/2018 [facility] 8:31 AM [facility] % Lymphocytes 6.0 % 11/09/2018 [facility] 8:31 AM [facility] % Monocytes 7.0 % 11/09/2018 [facility] 8:31 AM [facility] % Eosinophils 2.0 % 11/09/2018 [facility] 8:31 AM [facility] % Basophils 0.0 % 11/09/2018 [facility] 8:31 AM [facility] Absolute 7.9 1.6 - 11/09/2018 [facility] Neutrophil 8.3 8:[address] Absolute 0.6 (L) 0.8 - 11/09/2018 [facility] Lymphocytes 5.3 8:[address] Absolute 0.7 0.0 - 11/09/2018 [facility] Monocytes 1.3 8:[address] Absolute 0.2 0.0 - 11/09/2018 [facility] Eosinophils 0.7 8:[address] Absolute 0.0 0.0 - 11/09/2018 [facility] Basophils 0.2 8:[address] RBC Morphology Consistent with 11/09/2018 [facility] reported results 8:31 AM [facility] Platelet Automated count 11/09/2018 [place] Estimate confirmed. 8:31 AM [facility] morphology is normal. Specimen Anatomical Collection Method Collection Time Receive d Time (Source) Location / / Volume Laterality Blood specimen 11/09/2018 7:41 AM 019 7:51 (specimen) HOSPITAL SALES REPRESENTATIVE AM HOSPITAL SALES REPRESENTATIVE Dimas Chapman MD LAB - BLOOD ORDERABLES Performing Organization Address City/State/ZIP Code Phon e Number [facility] [address] [place] [address] [facility] [address] [place] [address], [place] [phone] (ABNORMAL) Comprehensive metabolic panel (11/09/2018 7:41 AM HOSPITAL SALES REPRESENTATIVE) P athologist Signature Sodium 144 133 - 144 11/09/2018 [place] mmol/L 8:11 AM [facility] Potassium 4.0 3.4 - 5.3 11/09/2018 [place] mmol/L 8:11 AM [facility] Chloride 113 (H) 94 - 109 11/09/2018 [place] mmol/L 8:11 AM [facility] Carbon Dioxide 22 20 - 32 11/09/2018 [place] mmol/L 8:17 AM [facility] Anion Gap 9 3 - 14 11/09/2018 [place] mmol/L 8:17 AM [facility] Glucose 94 70 - 99 11/09/2018 [place] mg/dL 8:17 AM [facility] Urea Nitrogen 21 7 - 30 11/09/2018 [place] mg/dL 8:17 AM [facility] Creatinine 1.24 0.66 - 11/09/2018 [facility] 1.25 mg/dL 8:17 AM [facility] GFR Estimate 56 (L) >60 11/09/2018 [place] mL/min/{1. 8:17 AM [facility] 73_m2} HOSPITAL Comment: Non GFR Calc Starting 10/05/2018, serum creatinine ba sed estimated GFR (eGFR) will be calculated using the Chronic Kidney Dise ase Epidemiology Collaboration (CKD-EPI) equation. GFR Estimate If 65 >60 mL/min/{1.73_m2} 11/09/2018 8: 17 AM [facility] Comment: GFR Calc Starting 10/05/2018, serum creatinine ba sed estimated GFR (eGFR) will be calculated using the Chronic Kidney Dise ase Epidemiology Collaboration (CKD-EPI) equation. Calcium 8.4 (L) 8.5 - 10.1 11/09/2018 8:17 AM [facility] mg/dL [facility] Bilirubin Total 1.3 0.2 - 1.3 mg/dL 11/09/2018 8:19 AM [facility] Albumin 2.4 (L) 3.4 - 5.0 g/dL 11/09/2018 8:19 AM [facility] Protein Total 6.2 (L) 6.8 - 8.8 g/dL 11/09/2018 8:19 AM [facility] Alkaline Phosphatase 72 40 - 150 U/L 11/09/2018 8:19 AM [facility] ALT 17 0 - 70 U/L 11/09/2018 8:19 AM [facility] AST 15 0 - 45 U/L 11/09/2018 8:19 AM [facility] Specimen Anatomical Collection Method Collection Time Receive d Time (Source) Location / / Volume Laterality Blood specimen 11/09/2018 7:41 AM 019 7:51 (specimen) HOSPITAL SALES REPRESENTATIVE AM [facility] Dimas Chapman MD LAB - BLOOD ORDERABLES Performing Organization Address City/State/ZIP Code Phon e Number [facility] [address] [address] [phone] [facility] [address] [address], U [phone] Magnesium Level scheduled every Thu (11/08/2018 3:40 AM HOSPITAL SALES REPRESENTATIVE) P athologist Signature Magnesium 1.7 1.6 - 2.3 11/08/2018 [place] mg/dL 4:06 AM [facility] Specimen Anatomical Collection Method Collection Time Receive d Time (Source) Location / / Volume Laterality Blood specimen 11/08/2018 3:40 AM 019 3:46 (specimen) HOSPITAL SALES REPRESENTATIVE AM HOSPITAL SALES REPRESENTATIVE Dimas Chapman MD LAB - BLOOD ORDERABLES Performing Organization Address City/State/ZIP Code Phon e Number [facility] [address] [address] [phone] [facility] [address] [place] [address], U [phone] (ABNORMAL) Comprehensive metabolic panel (11/08/2018 3:40 AM HOSPITAL SALES REPRESENTATIVE) Analysis Performed At Patho logist Time Signature Sodium 142 133 - 144 11/08/2018 [place] mmol/L 3:58 AM [facility] Potassium 4.2 3.4 - 5.3 11/08/2018 [place] mmol/L 3:58 AM [facility] Chloride 111 (H) 94 - 109 11/08/2018 [place] mmol/L 3:58 AM [facility] Carbon Dioxide 22 20 - 32 11/08/2018 [place] mmol/L 4:04 AM [facility] Anion Gap 9 3 - 14 11/08/2018 [place] mmol/L 4:04 AM [facility] Glucose 164 (H) 70 - 99 11/08/2018 [place] mg/dL 4:04 AM [facility] Urea Nitrogen 20 7 - 30 11/08/2018 [place] mg/dL 4:04 AM [facility] Creatinine 1.29 (H) 0.66 - 11/08/2018 [place] 1.25 mg/dL 4:04 AM [facility] GFR Estimate 53 (L) >60 11/08/2018 [place] mL/min/{1. 4:04 AM [facility] 73_m2} HOSPITAL Comment: Non GFR Calc Starting 10/05/2018, serum creatinine ba sed estimated GFR (eGFR) will be calculated using the Chronic Kidney Dise [facility] Epidemiology Collaboration (CKD-EPI) equation. GFR Estimate If 62 >60 mL/min/{1.73_m2} 11/08/2018 4: 04 AM [facility] Comment: GFR Calc Starting 10/05/2018, serum creatinine ba sed estimated GFR (eGFR) will be calculated using the Chronic Kidney Dise [place] Epidemiology Collaboration (CKD-EPI) equation. Calcium 8.2 (L) 8.5 - 10.1 11/08/2018 4:04 AM [facility] mg/dL [facility] Bilirubin Total 1.1 0.2 - 1.3 mg/dL 11/08/2018 4:06 AM [facility] Albumin 2.6 (L) 3.4 - 5.0 g/dL 11/08/2018 4:06 AM [facility] Protein Total 6.0 (L) 6.8 - 8.8 g/dL 11/08/2018 4:06 AM [facility] Alkaline Phosphatase 62 40 - 150 U/L 11/08/2018 4:06 AM [facility] ALT 18 0 - 70 U/L 11/08/2018 4:06 AM [facility] AST 19 0 - 45 U/L 11/08/2018 4:06 AM [facility] Specimen Anatomical Collection Method Collection Time Receive d Time (Source) Location / / Volume Laterality Blood specimen 11/08/2018 3:40 AM 019 3:46 (specimen) HOSPITAL SALES REPRESENTATIVE AM [facility] Gurwinder Godoy MD LAB - BLOOD ORDERABLES Performing Organization Address City/State/ZIP Code Phon e Number [facility] [address] [place] [address] [phone] [facility] [address] [address], U [phone] (ABNORMAL) CBC (AM Draw) (11/08/2018 3:40 AM HOSPITAL SALES REPRESENTATIVE) Analysis Performed At Patho logist Time Signature WBC 11.2 (H) 4.0 - 11.0 11/08/2018 [place] 10e9/L 3:50 AM [facility] RBC Count 3.62 (L) 4.4 - 5.9 11/08/2018 [place] 10e12/L 3:50 AM [facility] Hemoglobin 11.6 (L) 13.3 - 11/08/2018 [facility] 17.7 g/dL 3:50 AM [facility] Hematocrit 34.5 (L) 40.0 - 11/08/2018 [facility] 53.0 % 3:50 AM [facility] MCV 95 78 - 100 11/08/2018 [facility] fl 3:50 AM [facility] MCH 32.0 26.5 - 11/08/2018 [facility] 33.0 pg 3:50 AM [facility] MCHC 33.6 31.5 - 11/08/2018 [facility] 36.5 g/dL 3:50 AM [facility] RDW 13.9 10.0 - 11/08/2018 [facility] 15.0 % 3:50 AM [facility] Platelet Count 82 (L) 150 - 450 11/08/2018 [facility] 10e9/L 3:50 AM [facility] Specimen Anatomical Collection Method Collection Time Receive d Time (Source) Location / / Volume Laterality Blood specimen 11/08/2018 3:40 AM 019 3:46 (specimen) HOSPITAL SALES REPRESENTATIVE AM HOSPITAL SALES REPRESENTATIVE Gurwinder Godoy MD LAB - BLOOD ORDERABLES Performing Organization Address City/State/ZIP Code Phon e Number [facility] [address] [address] [facility] [address] [address], [facility] [phone] (ABNORMAL) CBC with platelets (11/07/2018 3:00 PM HOSPITAL SALES REPRESENTATIVE) Analysis Performed At Patho logist Time Signature WBC 11.1 (H) 4.0 - 11.0 11/07/2018 [facility] 10e9/L 3:08 PM [facility] RBC Count 3.74 (L) 4.4 - 5.9 11/07/2018 [facility] 10e12/L 3:08 PM [facility] Hemoglobin 11.9 (L) 13.3 - 11/07/2018 [facility] 17.7 g/dL 3:08 PM [facility] Hematocrit 35.4 (L) 40.0 - 11/07/2018 [facility] 53.0 % 3:08 PM [facility] MCV 95 78 - 100 11/07/2018 [facility] fl 3:08 PM [facility] MCH 31.8 26.5 - 11/07/2018 [facility] 33.0 pg 3:08 PM [facility] MCHC 33.6 31.5 - 11/07/2018 [facility] 36.5 g/dL 3:08 PM [facility] RDW 14.1 10.0 - 11/07/2018 [facility] 15.0 % 3:08 PM [facility] Platelet Count 87 (L) 150 - 450 11/07/2018 [facility] 10e9/L 3:08 PM [facility] Specimen Anatomical Collection Method Collection Time Receive d Time (Source) Location / / Volume Laterality Blood specimen 11/07/2018 3:00 PM 019 3:05 (specimen) HOSPITAL SALES REPRESENTATIVE PM HOSPITAL SALES REPRESENTATIVE Bart Feliciano MD LAB - BLOOD ORDERABLES Performing Organization Address City/State/ZIP Code Phon e Number [facility] [address] [place] [address] [facility] [address] [place] [address], [place] [phone] Magnesium (11/07/2018 9:50 AM HOSPITAL SALES REPRESENTATIVE) P athologist Signature Magnesium 1.6 1.6 - 2.3 11/07/2018 [place] mg/dL 11:12 AM [facility] Specimen Anatomical Collection Method Collection Time Receive d Time (Source) Location / / Volume Laterality 11/07/2018 9:50 AM 9 HOSPITAL SALES REPRESENTATIVE 10:04 AM HOSPITAL SALES REPRESENTATIVE Gurwinder Godoy MD LAB - BLOOD ORDERABLES Performing Organization Address City/State/ZIP Code Phon e Number [facility] [address] [place] [address] [phone] [facility] [address] [place] [address], [place] [phone] (ABNORMAL) CBC with platelets differential (11/07/2018 9:50 AM HOSPITAL SALES REPRESENTATIVE) Patholo gist Method Time Signature WBC 10.4 4.0 - 11/07/2018 [facility] 11.0 10:13 AM [facility] 10e9/L [facility] RBC Count 3.63 (L) 4.4 - 5.9 11/07/2018 [facility] 10e12/L 10:13 AM [facility] Hemoglobin 11.5 (L) 13.3 - 11/07/2018 [facility] 17.7 g/dL 10:13 AM [facility] Hematocrit 34.3 (L) 40.0 - 11/07/2018 [facility] 53.0 % 10:13 AM [facility] MCV 95 78 - 100 11/07/2018 [facility] fl 10:13 AM [facility] MCH 31.7 26.5 - 11/07/2018 [facility] 33.0 pg 10:13 AM [facility] MCHC 33.5 31.5 - 11/07/2018 [facility] 36.5 g/dL 10:13 AM [facility] RDW 14.0 10.0 - 11/07/2018 [facility] 15.0 % 10:13 AM [facility] Platelet Count 82 (L) 150 - 450 11/07/2018 [facility] 10e9/L 10:37 AM [facility] Diff Method Automated 11/07/2018 [facility] Method 10:37 AM [facility] % Neutrophils 78.8 % 11/07/2018 [facility] 10:37 AM [facility] % Lymphocytes 6.2 % 11/07/2018 [facility] 10:37 AM [facility] % Monocytes 14.7 % 11/07/2018 [facility] 10:37 AM [facility] % Eosinophils 0.2 % 11/07/2018 [facility] 10:37 [facility] % Basophils 0.0 % 11/07/2018 [facility] 10:37 AM [facility] % Immature 0.1 % 11/07/2018 [facility] Granulocytes 10:37 AM [facility] Nucleated RBCs 0 0 /100 11/07/2018 [facility] 10:37 AM [facility] Absolute 8.2 1.6 - 8.3 11/07/2018 [facility] Neutrophil 10e9/L 10:37 AM [facility] Absolute 0.6 (L) 0.8 - 5.3 11/07/2018 [facility] Lymphocytes 10e9/L 10:37 AM [facility] Absolute 1.5 (H) 0.0 - 1.3 11/07/2018 [facility] Monocytes 10e9/L 10:37 AM [facility] Absolute 0.0 0.0 - 0.7 11/07/2018 [place] Eosinophils 10e9/L 10:37 AM [facility] Absolute 0.0 0.0 - 0.2 11/07/2018 [facility] Basophils 10e9/L 10:37 AM [facility] Abs Immature 0.0 0 - 0.4 11/07/2018 [facility] Granulocytes 10e9/L 10:37 AM [facility] Absolute 0.0 11/07/2018 [place] Nucleated RBC 10:37 AM [facility] Ovalocytes Slight 11/07/2018 [facility] 10:37 AM [facility] Platelet Automated 11/07/2018 [place] Estimate count 10:37 AM [facility] confirmed. [facility] Platelet morphology is normal. Specimen Anatomical Collection Method Collection Time Receive d Time (Source) Location / / Volume Laterality Blood specimen 11/07/2018 9:50 AM 019 (specimen) HOSPITAL SALES REPRESENTATIVE 10:04 AM HOSPITAL SALES REPRESENTATIVE Gurwinder Godoy MD LAB - BLOOD ORDERABLES Performing Organization Address City/State/ZIP Code Phon e Number [facility] [address], [place] [address] [facility] [address] [address], [facility] [phone] (ABNORMAL) Basic metabolic panel (11/07/2018 9:[address] [facility]) Analysis Performed At Patho logist Time Signature Sodium 147 (H) 133 - 144 11/07/2018 [place] mmol/L 10:16 AM [facility] Potassium 4.1 3.4 - 5.3 11/07/2018 [place] mmol/L 10:16 AM [facility] Chloride 117 (H) 94 - 109 11/07/2018 [place] mmol/L 10:16 AM [facility] Carbon Dioxide 20 20 - 32 11/07/2018 [place] mmol/L 10:23 AM [facility] Anion Gap 10 3 - 14 11/07/2018 [place] mmol/L 10:23 AM [facility] Glucose 108 (H) 70 - 99 11/07/2018 [place] mg/dL 10:23 AM [facility] Urea Nitrogen 23 7 - 30 11/07/2018 [place] mg/dL 10:23 AM [facility] Creatinine 1.47 (H) 0.66 - 11/07/2018 [place] 1.25 mg/dL 10:23 AM [facility] GFR Estimate 46 (L) >60 11/07/2018 [place] mL/min/{1. 10:23 AM [facility] 73_m2} HOSPITAL Comment: Non GFR Calc Starting 10/05/2018, serum creatinine ba sed estimated GFR (eGFR) will be calculated using the Chronic Kidney Dise [facility] Epidemiology Collaboration (CKD-EPI) equation. GFR Estimate If 53 (L) >60 mL/min/{1.73_m2} 11/07/2018 10 :23 AM [place] Black [facility] Comment: GFR Calc Starting 10/05/2018, serum creatinine ba sed estimated GFR (eGFR) will be calculated using the Chronic Kidney Dise [facility] Epidemiology Collaboration (CKD-EPI) equation. Calcium 8.2 (L) 8.5 - 10.1 mg/dL 11/07/2018 10:23 AM [facility] Specimen Anatomical Collection Method Collection Time Receive d Time (Source) Location / / Volume Laterality Blood specimen 11/07/2018 9:50 AM 019 (specimen) HOSPITAL SALES REPRESENTATIVE 10:04 AM HOSPITAL SALES REPRESENTATIVE Gurwinder Godoy MD LAB - BLOOD ORDERABLES Performing Organization Address City/State/ZIP Code Phon e Number [facility] [address] [address] [facility] [address] [address], [facility] [phone] (ABNORMAL) Glucose by meter (11/07/2018 7:44 AM HOSPITAL SALES REPRESENTATIVE) P athologist Signature Glucose 112 (H) 70 - 99 11/07/2018 [facility] mg/dL 7:56 AM HOSPITAL SALES REPRESENTATIVE TEST, GLUCOSE Specimen Anatomical Collection Method Collection Time Receive d Time (Source) Location / / Volume Laterality 11/07/2018 7:44 AM 9 7:56 HOSPITAL SALES REPRESENTATIVE AM HOSPITAL SALES REPRESENTATIVE Juan Lewis MD LAB - BEAKER POCT Performing Organization Address City/State/ZIP Code Phon e Number [facility] POINT OF CARE TEST, GLUCOSE POINT OF CARE TEST, GLUCOSE (ABNORMAL) Glucose by meter (11/07/2018 3:49 AM HOSPITAL SALES REPRESENTATIVE) P athologist Signature Glucose 105 (H) 70 - 99 11/07/2018 [facility] mg/dL 4:01 AM HOSPITAL SALES REPRESENTATIVE TEST, GLUCOSE Specimen Anatomical Collection Method Collection Time Receive d Time (Source) Location / / Volume Laterality 11/07/2018 3:49 AM 9 4:01 HOSPITAL SALES REPRESENTATIVE AM HOSPITAL SALES REPRESENTATIVE Juan Lewis MD LAB - BEAKER POCT Performing Organization Address City/State/ZIP Code Phon e Number [facility] POINT OF CARE TEST, GLUCOSE POINT OF CARE TEST, GLUCOSE (ABNORMAL) Glucose by meter (11/07/2018 12:08 AM HOSPITAL SALES REPRESENTATIVE) P athologist Signature Glucose 119 (H) 70 - 99 11/07/2018 [facility] mg/dL 12:19 AM HOSPITAL SALES REPRESENTATIVE TEST, GLUCOSE Specimen Anatomical Collection Method Collection Time Receive d Time (Source) Location / / Volume Laterality 11/07/2018 12:08 11/07/2018 AM HOSPITAL SALES REPRESENTATIVE 12:19 AM HOSPITAL SALES REPRESENTATIVE Juan YUAN - CAROLYN POCT Performing Organization Address City/State/ZIP Code Phon e Number [facility] POINT OF CARE TEST, GLUCOSE POINT OF CARE TEST, GLUCOSE (ABNORMAL) Glucose by meter (11/06/2018 7:53 PM HOSPITAL SALES REPRESENTATIVE) P athologist Signature Glucose 116 (H) 70 - 99 11/06/2018 [facility] mg/dL 8:04 PM HOSPITAL SALES REPRESENTATIVE TEST, GLUCOSE Specimen Anatomical Collection Method Collection Time Receive d Time (Source) Location / / Volume Laterality 11/06/2018 7:53 PM 9 8:04 HOSPITAL SALES REPRESENTATIVE PM HOSPITAL SALES REPRESENTATIVE Juan Lewis MD LAB - BEFOUZIA POCT Performing Organization Address City/State/ZIP Code Phon e Number [facility] POINT OF CARE TEST, GLUCOSE POINT OF CARE TEST, GLUCOSE (ABNORMAL) Glucose by meter (11/06/2018 11:02 AM HOSPITAL SALES REPRESENTATIVE) P athologist Signature Glucose 109 (H) 70 - 99 11/06/2018 [facility] mg/dL 11:13 AM HOSPITAL SALES REPRESENTATIVE TEST, GLUCOSE Specimen Anatomical Collection Method Collection Time Receive d Time (Source) Location / / Volume Laterality 11/06/2018 11:02 11/06/2018 AM HOSPITAL SALES REPRESENTATIVE 11:13 AM HOSPITAL SALES REPRESENTATIVE Juan YUAN - BEFOUZIA POCT Performing Organization Address City/[facility]/ZIP Code Phon e Number [facility] POINT OF CARE TEST, GLUCOSE POINT OF CARE TEST, GLUCOSE (ABNORMAL) Glucose by meter (11/06/2018 7:38 AM HOSPITAL SALES REPRESENTATIVE) P athologist Signature Glucose 104 (H) 70 - 99 11/06/2018 [facility] mg/dL 7:50 AM HOSPITAL SALES REPRESENTATIVE TEST, GLUCOSE Specimen Anatomical Collection Method Collection Time Receive d Time (Source) Location / / Volume Laterality 11/06/2018 7:38 AM 9 7:50 HOSPITAL SALES REPRESENTATIVE AM HOSPITAL SALES REPRESENTATIVE Juan YUAN - BEFOUZIA POCT Performing Organization Address City/[facility]/ZIP Code Phon e Number [facility] POINT OF CARE TEST, GLUCOSE POINT OF CARE TEST, GLUCOSE Lactic acid whole blood (11/06/2018 4:15 AM HOSPITAL SALES REPRESENTATIVE) P athologist Signature Lactic Acid 1.4 0.7 - 2.0 11/06/2018 [facility] mmol/L 4:40 AM [facility] Specimen Anatomical Collection Method Collection Time Receive d Time (Source) Location / / Volume Laterality Blood specimen 11/06/2018 4:15 AM 019 4:25 (specimen) HOSPITAL SALES REPRESENTATIVE AM HOSPITAL SALES REPRESENTATIVE Bessy Mccray MD LAB - BLOOD ORDERABLES Performing Organization Address City/[facility]/ZIP Code Phon e Number [facility] [address] [place] [address] [phone] [facility] [address] [place] [address], [place] [phone] (ABNORMAL) Basic metabolic panel (11/06/2018 4:15 AM HOSPITAL SALES REPRESENTATIVE) Analysis Performed At Patho logist Time Signature Sodium 142 133 - 144 11/06/2018 [facility] mmol/L 4:49 AM [facility] Potassium 4.4 3.4 - 5.3 11/06/2018 [facility] mmol/L 4:49 AM [facility] Chloride 113 (H) 94 - 109 11/06/2018 [facility] mmol/L 4:49 AM [facility] Carbon Dioxide 21 20 - 32 11/06/2018 [place] mmol/L 4:54 AM [facility] Anion Gap 8 3 - 14 11/06/2018 [place] mmol/L 4:54 AM [facility] Glucose 115 (H) 70 - 99 11/06/2018 [place] mg/dL 4:54 AM [facility] Urea Nitrogen 27 7 - 30 11/06/2018 [place] mg/dL 4:54 AM [facility] Creatinine 1.57 (H) 0.66 - 11/06/2018 [place] 1.25 mg/dL 4:54 AM [facility] GFR Estimate 42 (L) >60 11/06/2018 [place] mL/min/{1. 4:54 AM [facility] 73_m2} HOSPITAL Comment: Non GFR Calc Starting 10/05/2018, serum creatinine ba sed estimated GFR (eGFR) will be calculated using the Chronic Kidney Dise [facility] Epidemiology Collaboration (CKD-EPI) equation. GFR Estimate If 49 (L) >60 mL/min/{1.73_m2} 11/06/2018 4: 54 AM [place] Black [facility] Comment: GFR Calc Starting 10/05/2018, serum creatinine ba sed estimated GFR (eGFR) will be calculated using the Chronic Kidney Dise [facility] Epidemiology Collaboration (CKD-EPI) equation. Calcium 7.8 (L) 8.5 - 10.1 mg/dL 11/06/2018 4:54 AM [facility] Specimen Anatomical Collection Method Collection Time Receive d Time (Source) Location / / Volume Laterality Blood specimen 11/06/2018 4:15 AM 019 4:25 (specimen) HOSPITAL SALES REPRESENTATIVE AM HOSPITAL SALES REPRESENTATIVE Bessy Mccray MD LAB - BLOOD ORDERABLES Performing Organization Address City/State/ZIP Code Phon e Number [facility] [address] [address] [phone] [facility] [address] [address], [place] [phone] (ABNORMAL) CBC with platelets (11/06/2018 4:15 AM HOSPITAL SALES REPRESENTATIVE) Analysis Performed At Patho logist Time Signature WBC 12.9 (H) 4.0 - 11.0 11/06/2018 [facility] 10e9/L 4:45 AM [facility] RBC Count 3.93 (L) 4.4 - 5.9 11/06/2018 [facility] 10e12/L 4:45 AM [facility] Hemoglobin 12.5 (L) 13.3 - 11/06/2018 [facility] 17.7 g/dL 4:45 AM [facility] Hematocrit 36.8 (L) 40.0 - 11/06/2018 [facility] 53.0 % 4:45 AM [facility] MCV 94 78 - 100 11/06/2018 [facility] fl 4:45 AM [facility] MCH 31.8 26.5 - 11/06/2018 [facility] 33.0 pg 4:45 AM [facility] MCHC 34.0 31.5 - 11/06/2018 [facility] 36.5 g/dL 4:45 AM [facility] RDW 13.2 10.0 - 11/06/2018 [facility] 15.0 % 4:45 AM [facility] Platelet Count 153 150 - 450 11/06/2018 [facility] 10e9/L 4:45 AM [facility] Specimen Anatomical Collection Method Collection Time Receive d Time (Source) Location / / Volume Laterality Blood specimen 11/06/2018 4:15 AM 019 4:25 (specimen) HOSPITAL SALES REPRESENTATIVE AM HOSPITAL SALES REPRESENTATIVE Bessy Mccray MD LAB - BLOOD ORDERABLES Performing Organization Address City/State/ZIP Code Phon e Number [facility] [address] [address] [phone] [facility] [address] [address], U [phone] (ABNORMAL) Glucose by meter (11/06/2018 1:12 AM HOSPITAL SALES REPRESENTATIVE) P athologist Signature Glucose 126 (H) 70 - 99 11/06/2018 [facility] mg/dL 1:24 AM HOSPITAL SALES REPRESENTATIVE TEST, GLUCOSE Specimen Anatomical Collection Method Collection Time Receive d Time (Source) Location / / Volume Laterality 11/06/2018 1:12 AM 9 1:24 HOSPITAL SALES REPRESENTATIVE AM HOSPITAL SALES REPRESENTATIVE Juan YUAN - BEAKER POCT Performing Organization Address City/State/ZIP Code Phon e Number [facility] POINT OF CARE TEST, GLUCOSE POINT OF CARE TEST, GLUCOSE Methicillin Resist/Sens S. aureus PCR (11/05/2018 11:41 PM HOSPITAL SALES REPRESENTATIVE) [facility] Method Time Signature Specimen Nares 11/05/2018 [place] Description 11:45 PM HOSPITAL SALES REPRESENTATIVE [facility] Methicillin Negative NEG^Negat 11/06/2018 [facility] Resist/Sens S. shin 2:36 AM HOSPITAL SALES REPRESENTATIVE [place] [facility] aureus PCR [facility] Comment: MRSA Negative: SA Negative ??MRSA and St aphylococcus aureus target DNA not detected, presumed negative for MRSA and SA colonization or the number of bacteria present may be below the limit of detection for the assay. FDA approved assay performed using [employer] eneXpert(R) real-time PCR. Specimen (Source) Anatomical Collection Method Collection Time Re ceived Time Location / / Volume Laterality Nasal structure 11/05/2018 11:41 11/06/19 19 (body structure) PM HOSPITAL SALES REPRESENTATIVE Bessy Mccray MD LAB - MICRO GENERAL ORDERABL ES Performing Organization Address City/[facility]/ZIP Code Phon e Number [facility] [address] [place] [address] [facility] [address] [place] [address], [facility] [phone] (ABNORMAL) Glucose by meter (11/05/2018 8:16 PM HOSPITAL SALES REPRESENTATIVE) P athologist Signature Glucose 128 (H) 70 - 99 11/05/2018 [facility] mg/dL 8:28 PM HOSPITAL SALES REPRESENTATIVE TEST, GLUCOSE Specimen Anatomical Collection Method Collection Time Receive d Time (Source) Location / / Volume Laterality 11/05/2018 8:16 PM 9 8:28 HOSPITAL SALES REPRESENTATIVE PM HOSPITAL SALES REPRESENTATIVE Juan YUAN - BEAKER POCT Performing Organization Address City/State/ZIP Code Phon e Number [facility] POINT OF CARE TEST, GLUCOSE POINT OF CARE TEST, GLUCOSE (ABNORMAL) Glucose by meter (11/05/2018 4:39 PM HOSPITAL SALES REPRESENTATIVE) P athologist Signature Glucose 124 (H) 70 - 99 11/05/2018 [facility] mg/dL 4:50 PM HOSPITAL SALES REPRESENTATIVE TEST, GLUCOSE Specimen Anatomical Collection Method Collection Time Receive d Time (Source) Location / / Volume Laterality 11/05/2018 4:39 PM 9 4:50 HOSPITAL SALES REPRESENTATIVE PM HOSPITAL SALES REPRESENTATIVE Juan Lewis MD LAB - BEAKER POCT Performing Organization Address City/State/ZIP Code Phon e Number [facility] POINT OF CARE TEST, GLUCOSE POINT OF CARE TEST, GLUCOSE (ABNORMAL) CBC with platelets (11/05/2018 4:35 PM HOSPITAL SALES REPRESENTATIVE) Analysis Performed At Patho logist Time Signature WBC 7.3 4.0 - 11.0 11/05/2018 [facility] 10e9/L 5:22 PM [facility] RBC Count 4.35 (L) 4.4 - 5.9 11/05/2018 [facility] 10e12/L 5:22 PM [facility] Hemoglobin 13.7 13.3 - 11/05/2018 [facility] 17.7 g/dL 5:22 PM [facility] Hematocrit 40.9 40.0 - 11/05/2018 [facility] 53.0 % 5:22 PM [facility] MCV 94 78 - 100 11/05/2018 [facility] fl 5:22 PM [facility] MCH 31.5 26.5 - 11/05/2018 [facility] 33.0 pg 5:22 PM [facility] MCHC 33.5 31.5 - 11/05/2018 [facility] 36.5 g/dL 5:22 PM [facility] RDW 13.1 10.0 - 11/05/2018 [facility] 15.0 % 5:22 PM [facility] Platelet Count 108 (L) 150 - 450 11/05/2018 [facility] 10e9/L 5:22 PM [facility] Specimen Anatomical Collection Method Collection Time Receive d Time (Source) Location / / Volume Laterality Blood specimen 11/05/2018 4:35 PM 019 5:17 (specimen) HOSPITAL SALES REPRESENTATIVE PM HOSPITAL SALES REPRESENTATIVE Bessy Mccray MD LAB - BLOOD ORDERABLES Performing Organization Address City/State/ZIP Code Phon e Number [facility] [address] [id number] [facility] [address] [address], [place] [phone] INR (11/05/2018 4:35 PM HOSPITAL SALES REPRESENTATIVE) P athologist Signature INR 1.03 0.86 - 1.14 11/05/2018 [facility] 5:33 PM [facility] Specimen Anatomical Collection Method Collection Time Receive d Time (Source) Location / / Volume Laterality Blood specimen 11/05/2018 4:35 PM 019 5:17 (specimen) HOSPITAL SALES REPRESENTATIVE PM HOSPITAL SALES REPRESENTATIVE Bessy Mccray MD LAB - BLOOD ORDERABLES Performing Organization Address City/State/ZIP Code Phon e Number [facility] [address] [place] [address] [facility] [address] [place] [address], [place] [phone] Lactic acid whole blood (11/05/2018 4:35 PM HOSPITAL SALES REPRESENTATIVE) P athologist Signature Lactic Acid 1.0 0.7 - 2.0 11/05/2018 [place] mmol/L 5:57 PM [facility] Specimen Anatomical Collection Method Collection Time Receive d Time (Source) Location / / Volume Laterality Blood specimen 11/05/2018 4:35 PM 019 5:18 (specimen) HOSPITAL SALES REPRESENTATIVE PM HOSPITAL SALES REPRESENTATIVE Bessy Mccray MD LAB - BLOOD ORDERABLES Performing Organization Address City/State/ZIP Code Phon e Number [facility] [address] [place] [address] [phone] [facility] [address] [place] [address], [place] [phone] (ABNORMAL) Basic metabolic panel (11/05/2018 4:35 PM HOSPITAL SALES REPRESENTATIVE) Analysis Performed At Patho logist Time Signature Sodium 143 133 - 144 11/05/2018 [place] mmol/L 5:38 PM [facility] Potassium 4.3 3.4 - 5.3 11/05/2018 [place] mmol/L 5:38 PM [facility] Chloride 113 (H) 94 - 109 11/05/2018 [place] mmol/L 5:38 PM [facility] Carbon Dioxide 22 20 - 32 11/05/2018 [place] mmol/L 5:43 PM [facility] Anion Gap 8 3 - 14 11/05/2018 [place] mmol/L 5:43 PM [facility] Glucose 121 (H) 70 - 99 11/05/2018 [place] mg/dL 5:43 PM [facility] Urea Nitrogen 24 7 - 30 11/05/2018 [place] mg/dL 5:43 PM [facility] Creatinine 1.30 (H) 0.66 - 11/05/2018 [place] 1.25 mg/dL 5:43 PM [facility] GFR Estimate 53 (L) >60 11/05/2018 [place] mL/min/{1. 5:43 PM [facility] 73_m2} HOSPITAL Comment: Non GFR Calc Starting 10/05/2018, serum creatinine ba sed estimated GFR (eGFR) will be calculated using the Chronic Kidney Dise [facility] Epidemiology Collaboration (CKD-EPI) equation. GFR Estimate If 61 >60 mL/min/{1.73_m2} 11/05/2018 5: 43 PM [facility] Comment: GFR Calc Starting 10/05/2018, serum creatinine ba sed estimated GFR (eGFR) will be calculated using the Chronic Kidney Dise [facility] Epidemiology Collaboration (CKD-EPI) equation. Calcium 8.6 8.5 - 10.1 mg/dL 11/05/2018 5:43 PM [facility] Specimen Anatomical Collection Method Collection Time Receive d Time (Source) Location / / Volume Laterality Blood specimen 11/05/2018 4:35 PM 019 5:17 (specimen) HOSPITAL SALES REPRESENTATIVE PM HOSPITAL SALES REPRESENTATIVE Bessy Mccray MD LAB - BLOOD ORDERABLES Performing Organization Address City/State/ZIP Code Phon e Number [facility] [address] [address] [facility] [address] [address], [place] [phone] IR Thoracic Endovascular Stent Graft (11/05/2018 12:09 PM HOSPITAL SALES REPRESENTATIVE) Anatomical Region Laterality Modality Chest Radio Fluoroscopy Specimen (Source) Anatomical Location Collection Method / Collectio n Time Received Time / Laterality Volume Impressions 11/06/2018 3:33 PM HOSPITAL SALES REPRESENTATIVE IMPRESSION: Successful deployment in 2 components for [...] KANNAN STARKS MD Narrative 11/06/2018 3:33 PM HOSPITAL SALES REPRESENTATIVE INTERVENTIONAL RADIOLOGY THORACIC ENDOVASCULAR STENT GRAFT ??11/05/2018 [...] tion. Over a series of maneuvers, 6 American vascular sheath was placed. From left groin [...] tion. Over a series of maneuvers, 6 American vascular sheath was placed. From left groin [...] Drain Placement w Fluoro (11/05/2018 9:10 AM HOSPITAL SALES REPRESENTATIVE) Anatomical Region Laterality Modality Spine Radio Fluoroscopy Specimen (Source) Anatomical Location Collection Method / Collectio n Time Received Time / Laterality Volume Narrative 11/05/2018 9:19 AM HOSPITAL SALES REPRESENTATIVE [facility] RADIOLOGY INTERVENTIONAL NEURORADIOLOGY PROCEDURAL NOTE FLUOROSCOPICALLY GUIDED [...] codes included for physician referen ce only: 94486/09503 MISSAEL GARCIA MD Procedure Note Missael Garcia MD - 11/05/2018For matting of this note might be different from the original. [facility] RADIOLOGY INTERVENTIONAL NEURORADIOLOGY PROCEDURAL NOTE FLUOROSCOPICALLY GUIDED [...] codes included for physician referen ce only: 36368/36164 MISSAEL GARCIA MD Butch Brown MD IMG IR ORDERABLES EKG 12-lead, tracing only (11/05/2018 6:58 AM HOSPITAL SALES REPRESENTATIVE) [facility] gist Method Time Signature Interpretation ECG Click View RADIOLOGY Image link RESULTS to view waveform and result Specimen (Source) Anatomical Collection Method Collection Time Re ceived Time Location / / Volume Laterality 11/05/2018 6:58 AM HOSPITAL SALES REPRESENTATIVE Juan Lewis MD ECG ORDERABLES Performing Organization Address City/State/ZIP Code Phon e Number RADIOLOGY RESULTS Potassium (11/05/2018 6:55 AM HOSPITAL SALES REPRESENTATIVE) athologist Signature Potassium 4.3 3.4 - 5.3 11/05/2018 [facility] mmol/L 7:15 AM HOSPITAL SALES REPRESENTATIVE [facility] Specimen Anatomical Collection Method Collection Time Receive d Time (Source) Location / / Volume Laterality Blood specimen 11/05/2018 6:55 AM 019 6:56 (specimen) HOSPITAL SALES REPRESENTATIVE AM HOSPITAL SALES REPRESENTATIVE Zakia Tobin MD LAB - BLOOD ORDERABLES Performing Organization Address City/State/ZIP Code Phon e Number [facility] [address] [place] [address] [phone] [facility] [address] [place] [address], [place] [phone] Lipid panel (11/05/2018 6:55 AM HOSPITAL SALES REPRESENTATIVE) Analysis Performed At Patho logist Time Signature Cholesterol 128 <200 mg/dL 11/05/2018 [facility] 7:20 AM [facility] Triglycerides 125 <150 mg/dL 11/05/2018 [facility] 7:21 AM [facility] HDL Cholesterol 59 >39 mg/dL 11/05/2018 [facility] 7:23 AM [facility] LDL Cholesterol 44 <100 mg/dL 11/05/2018 [facility] Calculated 7:23 AM [facility] Comment: Desirable: <100 mg/dl Non HDL Cholesterol 69 <130 mg/dL 11/05/2018 7:23 AM [facility] Specimen Anatomical Collection Method Collection Time Receive d Time (Source) Location / / Volume Laterality Blood specimen 11/05/2018 6:55 AM 019 6:56 (specimen) HOSPITAL SALES REPRESENTATIVE AM HOSPITAL SALES REPRESENTATIVE Juan Lewis MD LAB - BLOOD ORDERABLES Performing Organization Address City/State/ZIP Code Phon e Number [facility] [address] [place] [address] [facility] [address] [place] [address], [place] [phone] Hemoglobin A1c (11/05/2018 6:55 AM HOSPITAL SALES REPRESENTATIVE) P athologist Signature Hemoglobin A1C 5.2 0 - 5.6 % 11/05/2018 [facility] 7:30 AM [facility] Comment: Normal <5.7% Prediabetes 5.7-6.4% ??Diab etes 6.5% or higher - adopted from ADA consensus guidelines. Specimen Anatomical Collection Method Collection Time Receive d Time (Source) Location / / Volume Laterality Blood specimen 11/05/2018 6:55 AM 019 6:56 (specimen) HOSPITAL SALES REPRESENTATIVE AM HOSPITAL SALES REPRESENTATIVE Juan Lewis MD LAB - BLOOD ORDERABLES Performing Organization Address City/State/ZIP Code Phon e Number [facility] [address] [address] [facility] [address] [place] [address], [place] [phone] (ABNORMAL) Creatinine (11/05/2018 6:55 AM HOSPITAL SALES REPRESENTATIVE) athologist Signature Creatinine 1.52 (H) 0.66 - 11/05/2018 [place] 1.25 mg/dL 7:20 AM [facility] GFR Estimate 44 (L) >60 11/05/2018 [place] mL/min/{1. 7:20 AM [facility] 73_m2} HOSPITAL Comment: Non GFR Calc Starting 10/05/2018, serum creatinine ba sed estimated GFR (eGFR) will be calculated using the Chronic Kidney Dise [facility] Epidemiology Collaboration (CKD-EPI) equation. GFR Estimate If 51 (L) >60 mL/min/{1.73_m2} 11/05/2018 7: 20 AM [facility] Comment: GFR Calc Starting 10/05/2018, serum creatinine ba sed estimated GFR (eGFR) will be calculated using the Chronic Kidney Dise [facility] Epidemiology Collaboration (CKD-EPI) equation. Specimen Anatomical Collection Method Collection Time Receive d Time (Source) Location / / Volume Laterality Blood specimen 11/05/2018 6:55 AM 019 6:56 (specimen) HOSPITAL SALES REPRESENTATIVE AM HOSPITAL SALES REPRESENTATIVE Juan Lewis MD LAB - BLOOD ORDERABLES Performing Organization Address City/State/ZIP Code Phon e Number [facility] [address] [address] [facility] [address] [place] [address], [place] [phone] XR Chest Port 1 View (11/05/2018 6:40 AM HOSPITAL SALES REPRESENTATIVE) Anatomical Region Laterality Modality Chest Digital Radiography Specimen (Source) Anatomical Location Collection Method / Collectio n Time Received Time / Laterality Volume Impressions 11/05/2018 6:58 AM HOSPITAL SALES REPRESENTATIVE IMPRESSION: No acute abnormality. TORI SANTIZO MD Narrative 11/05/2018 6:58 AM HOSPITAL SALES REPRESENTATIVE XR CHEST PORTABLE 1 VIEW ?? 11/05/2018 [...] CARDIAC - HIM SCAN (09/24/2018 12:00 AM HOSPITAL SALES REPRESENTATIVE) Specimen (Source) Anatomical Location Collection Method / [...] acetaminophen (TYLENOL) tablet Given 11/08/2018 11:04 PM HOSPITAL SALES REPRESENTATIVE 975 mg 975 mg 975 mg, Oral, EVERY 6 HOURS PRN, mild pain, fever, Starting on Thu11/05/18 at 1827, Maximum acetaminophen dose from all sources = 75 mg/kg/day not to exceed 4 grams/day. Given 11/08/2018 12:37 PM HOSPITAL SALES REPRESENTATIVE 975 mg Given 11/07/2018 11:03 AM HOSPITAL SALES REPRESENTATIVE 975 mg alum & mag hydroxide-simethicone (MYLANTA Given 11/08/2018 2:48 AM HOSPITAL SALES REPRESENTATIVE 30 mLs ES/MAALOX ES) suspension 30 mL 30 mL, Oral, EVERY 4 HOURS PRN, indigestion, Starting on Thu11/05/18 at 1510, Shake well. apixaban ANTICOAGULANT (ELIQUIS) tablet 2.5 Given 10/20 12:04 PM HOSPITAL SALES REPRESENTATIVE 2.5 mg mg 2.5 mg, Oral, 2 TIMES DAILY, First dose on Thu11/09/18 at 1115 atorvastatin (LIPITOR) tablet 40 mg Given 11/08/2018 8:20 PM HOSPITAL SALES REPRESENTATIVE 40 mg 40 mg, Oral, EVERY EVENING, First dose on Thu11/05/18 at 2000 Given 11/07/2018 7:49 PM HOSPITAL SALES REPRESENTATIVE 40 mg Given 11/06/2018 9:16 PM HOSPITAL SALES REPRESENTATIVE 40 mg BUPivacaine (MARCAINE) Given 11/05/2018 12:07 PM 20 mLs Operative Site/Surgical injection 0.5% PF HOSPITAL SALES REPRESENTATIVE Site PRN, Starting on Thu11/05/18 at 1207, Intra-procedure calcium carbonate (TUMS) chewable tablet Given 11/07/2018 10 :34 PM HOSPITAL SALES REPRESENTATIVE 1,000 mg 1,000 mg 1,000 mg, Oral, EVERY 2 HOURS PRN, heartburn, Starting on Thu11/06/18 at 0408, Do not give if calcium level greater than 10 mg/dL. Given 11/07/2018 12:05 AM HOSPITAL SALES REPRESENTATIVE 1,000 mg Given 11/06/2018 4:50 AM HOSPITAL SALES REPRESENTATIVE 1,000 mg cyclobenzaprine (FLEXERIL) tablet 5-10 m g Given 11/08/2018 3:58 AM HOSPITAL SALES REPRESENTATIVE 10 mg 5-10 mg, Oral, 3 TIMES DAILY PRN, muscle spasms, Starting on Thu11/07/18 at 1153 Given 11/07/2018 2:26 PM HOSPITAL SALES REPRESENTATIVE 5 mg diphenhydrAMINE (BENADRYL) injection 12. 5 mg 12.5 mg, Intravenous, EVERY 6 HOURS PRN, itching, Only give if patient unable to take PO., Starting on Thu11/05/18 at 151 0, Caution to be used when administering multiple PORT CAPTAIN depressing meds within a sh ort time frame. For ordered IV doses 1-50 mg, give IV Push undiluted. Give each 25 mg over a minimum of 1 minute. Extend in non-emergency diphenhydrAMINE (BENADRYL) solution 12.5 mg 12.5 mg, Oral, EVERY 6 HOURS PRN, itchin g, Starting on Thu11/05/18 at 1510, Caution to be used when administering multiple PORT CAPTAIN depressing meds within a short time frame. heparin 10,000 units in Given 11/05/2018 11:06 AM 200 mLs Operative Site/Surgical 1000 mL 0.9% sodium HOSPITAL SALES REPRESENTATIVE Site chloride PRN, Starting on Thu11/05/18 at 1106, Intra-procedure hydrALAZINE (APRESOLINE) injection 10-20 mg Given 11/08/2018 7:03 PM HOSPITAL SALES REPRESENTATIVE 10 mg 10-20 mg, Intravenous, EVERY 1 [...] over 1 minute. Given 11/08/2018 11:51 AM HOSPITAL SALES REPRESENTATIVE 20 mg Given 11/08/2018 3:36 AM HOSPITAL SALES REPRESENTATIVE 20 mg iopamidol (ISOVUE-300) IV Given 11/05/2018 12:42 PM 75 mLs Operative Site/Surgical solution 61% HOSPITAL SALES REPRESENTATIVE Site PRN, Starting on Thu11/05/18 at 1242, Intra-procedure labetalol (NORMODYNE/TRANDATE) injection 10-20 Given 0 11/08/2018 3:03 AM HOSPITAL SALES REPRESENTATIVE 10 mg mg 10-20 mg, Intravenous, EVERY [...] over 2 minutes. Given 11/08/2018 2:33 AM HOSPITAL SALES REPRESENTATIVE 20 mg Given 11/07/2018 10:35 PM HOSPITAL SALES REPRESENTATIVE 10 mg magnesium sulfate 4 g in 100 mL sterile water (premade) 4 g, Intravenous, Administer over 120 Minutes, EVERY 4 HOURS PRN, magnesium supplementation, Starting on 11/07/18 at 1152, For serum Mg++ less than 1.6 mg/dL Give 4 g and recheck magnesium level 2 hours aft er dose, and next AM. metoprolol tartrate (LOPRESSOR) tablet 5 0 mg Given 11/09/2018 8:28 AM HOSPITAL SALES REPRESENTATIVE 50 mg 50 mg, Oral, 2 TIMES DAILY, First dose on 11/08/18 at 2100, Hold for SBP < 90, HR < 50 Given 11/08/2018 8:20 PM HOSPITAL SALES REPRESENTATIVE 50 mg omeprazole (priLOSEC) CR capsule 20 mg Given 11/09/2018 6:33 AM HOSPITAL SALES REPRESENTATIVE 20 mg 20 mg, Oral, EVERY MORNING BEFORE BREAKFAST, First dose on Thu11/07/18 at 2345 Given 11/08/2018 8:22 AM HOSPITAL SALES REPRESENTATIVE 20 mg Given 11/07/2018 11:48 PM HOSPITAL SALES REPRESENTATIVE 20 mg ondansetron (ZOFRAN) injection 4 mg Given 11/07/2018 11:48 PM HOSPITAL SALES REPRESENTATIVE 4 mg 4 mg, Intravenous, EVERY 6 [...] half-tab 2.5-5 mg Given 11/08/2018 12:37 PM HOSPITAL SALES REPRESENTATIVE 5 mg 2.5-5 mg, Oral, EVERY 4 HOURS PRN, moderate to severe pain, Starting on Thu11/05/18 at 1724 Given 11/08/2018 6:19 AM HOSPITAL SALES REPRESENTATIVE 5 mg Given 11/07/2018 7:49 PM HOSPITAL SALES REPRESENTATIVE 5 mg sennosides (SENOKOT) tablet 8.6 mg Given 11/08/2018 3:36 AM HOSPITAL SALES REPRESENTATIVE 8.6 mg 8.6 mg, Oral, 2 TIMES DAILY PRN, constipation, Starting on Thu11/08/18 at 0250 sodium chloride (PF) 0.9% PF flush 3 mL Given 11/07/2018 4:12 PM HOSPITAL SALES REPRESENTATIVE 3 mLs 3 mL, Intracatheter, EVERY 8 HOURS, First dose on Thu11/05/18 at 1515, And Q1H PRN, to lock peripheral IV dormant line. Given 11/07/2018 11:34 AM HOSPITAL SALES REPRESENTATIVE 3 mLs Given 11/07/2018 12:06 AM HOSPITAL SALES REPRESENTATIVE 10 mLs terazosin (HYTRIN) capsule 5 mg Given 11/08/2018 9:21 PM HOSPITAL SALES REPRESENTATIVE 5 mg 5 mg, Oral, AT BEDTIME, First dose on Thu11/05/18 at 2200 documented in this encounter Active and Recently Administered Medications Times are shown in HOSPITAL SALES REPRESENTATIVE. Scheduled Medication Order 11/07/2018 11/08/2018 11/09/2018 apixaban ANTICOAGULANT (ELIQUIS) tablet 2.5 mg 1204 (Given - Provider: Kiki Traylor, JOSE) 2.5 mg, Oral, 2 TIMES DAILY, First dose on Thu11/09/18 at 1115 atorvastatin (LIPITOR) tablet 40 mg 1949 (Given - Provider: Kristy Castañeda RN) 2019 (Given - Provider: Maria C Dunbar RN) 40 mg, Oral, EVERY EVENING, First dose on Thu11/05/18 at 2000 HYDROmorphone (PF) (DILAUDID) injection 0.2-0.4 mg 0.2-0.4 mg, Intravenous, ONCE, 1 dose, F ri 1/18/19 at 1515, For ordered IV doses 0.1-4 mg give IV Push undiluted. Administer each 2mg over 2-5 minutes. metoprolol tartrate (LOPRESSOR) tablet 25 mg (CANCELED ) 1114 (Given - Provider: Danette Peck RN)1949 (Given - Provider: Kristy Castañeda RN)2055 (Canceled Entry - Provider: Kristy Castañeda RN) [...] ider: Kristy Castañeda RN - Reason: NPO) 212 (Given - Provider: Maria C Dunbar, JOSE) [...] RN) at 75 mL/hr, Intravenous, CONTINUOUS, [facility] 11/07/18 at 1200, Until Thu11/09/18 at 0731 [...] 30 mL 0248 (Given - Provider: Kristy Castañeda RN) 30 mL, Oral, EVERY 4 HOURS [...] Caution to be used when administering multiple PORT CAPTAIN depressing meds within a short time frame. For ordered IV doses 1-50 m g, give IV Push undiluted. Give each 25mg over a minimum of 1 minute. Extend in non-emergency diphenhydrAMINE (BENADRYL) solution 12.5 mg(Linked Group 1) 12.5 mg, Oral, EVERY 6 HOURS PRN, itchin g, Starting 11/05/18 at 1510, Caution to be used when administering multiple PORT CAPTAIN depressing meds within a short time frame. hydrALAZINE (APRESOLINE) injection 10-20 mg 0155 (Give n - Provider: Ramiro Lozano RN)0343 (Given - Provider: Ramiro Lozano RN)1053 (Given - Provider: Danette Peck, JOSE) 0336 (Given - Provider: Kristy Castañeda, JOSE [...]
Caution to be used when administering multiple PORT CAPTAIN depressing meds within a short time frame.
Or diphenhydrAMINE (BENADRYL) injection 12.5 mgJump to med 12.5 mg, Intravenous, EVERY 6 HOURS PRN, itching, Only give if patient unable to take PO., Starting Thu11/05/18 at 1510
Caution to be used when administering multiple PORT CAPTAIN depressing meds within a short time frame. [...] documented as of this encounter Care Teams Reel Repairer Relationship Specialty Start Date End Date Clinic, Kehinde Santos PCP - General 05/12/17 [address] [phone] documented as of this encounter
--- OUTSIDE RECORDS SUMMARY | 2022-07-17 13:55 | XMS_ITS | Encounter Summary ---
:1940 Author Organization [place] [facility] Address [address] [place] [address] Care Team Providers Name Role Phone Kehinde Portillo Primary Care Provider [phone] Encounter Details Date Type Department Care Team [...] filedocumented in this encounter Care Teams Hand Lacer Relationship Specialty Start Date [facility] - [facility] [place] [address] [phone] documented as of this encounter
--- OUTSIDE RECORDS SUMMARY | 2022-07-17 13:56 | XMS_ITS | Encounter Summary ---
:1940 Author Organization [facility] Address [address] [place] [address] Care Team Providers Name Role Phone Clinic, [facility] Primary Care Provider [phone] Reason for Visit CV Testing - Closed Specialty Diagnoses / Procedures Referred By Contact Refer red To Contact Cardiology Diagnoses Transient cerebral ischemia, unspecified type Luis Antonio Quintanilla MD Rh Echo cc Procedures ECHO COMPLETE BUBBLE STUDY WITH OPTISON Echo Complete Bubble [address] [address] [place] [address] [address] [place] [address] Phone: Fax: Referral ID Status Reason Start Date Expiration Date Visits Requ ested Visits Authorized [id number] Closed 11/16/2017 11/16/2018 1 1 Encounter Details Date Type Department Care Team Description 11/17/2017 Hospital Encounter [facility] Luis Antonio Quintanilla [facility] MD [place] ischemia, unspecified [facility] [address] type [address] [place], [place] [address] [address] [place], [place] [phone] [address] (Work) [phone] Social History Tobacco Use Types Packs/Day Years [...] Re sults for this BUBBLE STUDY WITH OIL TRANSPORT DRIVER ischemia, procedure are in OPTISON unspecified type the results section. documented in this encounter Results ECHO COMPLETE BUBBLE STUDY WITH OPTISON (11/17/2017 2:35 PM OIL TRANSPORT DRIVER) Anatomical Region Laterality Modality Echocardiography Specimen (Source) Anatomical Collection Method Collection Time Re ceived Time Location / / Volume Laterality 11/17/2017 1:54 PM OIL TRANSPORT DRIVER Narrative 11/17/2017 3:15 PM OIL TRANSPORT DRIVER [id number]^ARNAUD^LUIS ANTONIO^PIPPA [facility] Echocardiography Laboratory [address] [place] [address] Name: SPEEDY MCDUFFIE : 1940 Study Date: 11/17/2017 01:54 PM Age: 77 yrs Gender: Male Patient Location: [facility] Reason For Study: , Transient cerebral i [...] Jon peter 11/17/2017 03:15 PM Procedure Note oJn Jason MD - 11/17/2017For matting of this note might be different from the original. [id number]^ARNAUD^LUIS ANTONIO^PIPPA [facility] Echocardiography Laboratory [address] [place] [address] Name: SPEEDY MCDUFFIE : 1940 Study Date: 11/17/2017 01:54 PM Age: 77 yrs Gender: Male Patient Location: [facility] Reason For Study: , Transient cerebral i [...] to 2mL with Given 11/17/2017 2:45 PM OIL TRANSPORT DRIVER 3 mLs saline (OPTISON) diluted injection 3 mL 3 mL, Intravenous, ONCE, On Thu11/17/17 at 1445, For 1 dose, [facility] [id number] sodium chloride (PF) 0.9% PF flush 10 mL Given 11/17/2017 2:37 PM OIL TRANSPORT DRIVER 10 mLs 10 mL, Intravenous, ONCE, On Thu11/17/17 at 1445, For 1 dose sodium chloride bacteriostatic 0.9 % flush 30 Given 2:37 PM OIL TRANSPORT DRIVER 30 mLs mL 30 mL, Intravenous, ONCE, On Thu11/17/17 at 1445, For 1 dose documented in this encounter Care Teams Senior Architect/Design Manager Relationship Specialty Start Date End Date [facility], [facility] PCP - General 05/12/[address] [place] [id number] documented as of this encounter
--- OUTSIDE RECORDS SUMMARY | 2022-07-17 13:56 | XMS_ITS | Encounter Summary ---
:1940 Author Organization [facility] Address [facility] 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) [address] [place] [address] [place], [place] [phone] (Work) [phone] Social History Tobacco Use Types Packs/Day Years [...] Primary documented in this encounter Care Teams Protocol Manager Relationship Specialty Start Date End Date [facility], [facility] PCP - General 05/12/[address] [place], [place] [phone] documented as of this encounter
--- OUTSIDE RECORDS SUMMARY | 2022-07-17 13:56 | XMS_ITS | Encounter Summary ---
:1940 Author Organization [place] Address [address] [place] [address] Care Team Providers Name Role Phone Clinic, [facility] Primary Care Provider [phone] Reason for Visit Reason Comments Transient Ischemic Attack Encounter Details Date Type Department Care Team Description 11/14/2017 - [facility] brittani Stauffer MD [facility] [address] [place] [address] Transient cerebral ischemia, unspecified type (Primary Dx); 11/15/2017 Anders Jamie Bryan MD [address] [place] [address] Weakness on right side of face; Dept Uncontrolled hypertension [address] [place] [address] Social History Tobacco Use Types [...] Comments Blood Pressure 157/73 11/15/2017 11:[address] TECH Pulse 54 11/14/2017 11:[address] TECH Temperature 35.8 ??C (96.5 ??F) 11/15/2017 11:[address] TECH Respiratory Rate 18 11/15/2017 11:[address] TECH Oxygen Saturation 97% 11/15/2017 11:[address] TECH Inhaled Oxygen Concentration - - Weight 88.9 kg (196 lb) 11/15/2017 2:[address] TECH Height 177.8 cm (5' 10) 11/15/2017 2:[address] TECH Body Mass Index 28.12 11/15/2017 2:[address] TECH documented in this encounter Discharge Summaries Luis Antonio Quintanilla MD - 11/15/2017 11:18 AM CST [facility] Discharge Summary Name: Speedy Hendricks Date of : 1940 Age: [age] year old Date of Discharge: 11/15/2017 Date of Admission: 11/14/2017 Primary Care Provider: Kehinde Portillo [place] Discharge Physician: Luis Antonio Quintanilla MD Discharging [...] with NOAC. I also spoke with his Components Engineer (Dr. Wilson) who agreed with starting lisinopril. [...] 50 Minutes. Luis Antonio Quintanilla MD Pager: [phone] CT TECH documented in this encounter Medications at Time [...] placed in patient's chart. Samantha Vergara RRT CT TECH documented in this encounter H&P Notes Jamie Gates MD - 11/15/2017 1:33 AM CST [facility] Hospitalist Admission Note Name: Speedy Hendricks [...] -permissive HTN -monitor for recurrence of symptoms -PT/OT/DIRECTOR OF NUCLEAR MEDICINE -bedside swallow eval by RN, ok to [...] on amiodarone that was stopped by his senior back end java developer last week. Continues on 81mg aspirin and metoprolol 50mg bid. AC refused by patient/family due to enlarging AAA. -continue aspirin -continue metoprolol 50mg bid 4. Hx cardiac arrest: suspected due to mscontin buildup in setting of CKD. Hospitalized at [facility] 04/2017. Has been doing quite well since. 5. AAA: enlarging and up to 4.2cm when last checked. Due for repeat US next month. Father from AAA at age 61. 6. HTN: SBP elevated here initially to 185/99 now down to 140-150s in ED without intervention. 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 Lift room needed: No. Bariatric: No Laboratory Animal Caretaker Needed: No Isolation: No. Infection: Not Applicable. 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 Tests Performed: [...] chloride BOLUS (0 mLs Intravenous Stopped 11/14/17 1672) iopamidol (ISOVUE-370) solution 500 mL (120 mLs Intravenous Given 11/14/17 2758) Drips infusing: No For the majority of [...] hardware foot Thoracic surgery, right lung surgery Mobile teeth extraction Family History: History reviewed. No [...] Screening for cardiovascular disease. Rate 58 bpm. LA interval 184 ms. QRS duration 82 ms. [...] focal stenosis of the left P2 segment METAL RECLAMATION KETTLE TENDER with a small trickle of contrast extending [...] Arriaga of the radiology service from [facility] regarding patient's presentation, findings, and [...] observations and the provider's statements to me. [facility] EMERGENCY DEPARTMENT Damian Mark MD 11/15/[address] TECH documented in this encounter Miscellaneous Notes Plan [...] with: daughter OBSERVATION patient END time: 1210 CT TECH Plan of Care - Mitra Joshi OT - 11/15/2017 9:39 AM CST Problem: Patient Care Overview Goal: Plan of Care/Patient Progress Review OT: Orders received and chart reviewed. Discussed with treatment team including physical therapist. No Ip OT needs at this time. Will complete orders CT TECH Plan of Care - Brittany Alcantar, PT - 11/15/2017 9:23 AM CST Problem: Patient Care Overview Goal: Plan of Care/Patient Progress Review PT: Received orders for evaluation and treatment; per chart review and Obs team, no inpatient therapy needs at this time (issues have resolved). Will complete therapy orders. CT TECH Plan of Care - Ca Major RN - 11/15/2017 8:00 AM CST Problem: Patient Care Overview Goal: Plan of Care/Patient Progress Review PRIMARY DIAGNOSIS: TIA R/O OUTPATIENT/OBSERVATION GOALS TO BE MET BEFORE DISCHARGE: 1. Orthostatic performed: No 2. Diagnostic testing complete & at baseline neurologic testing: Yes 3. Cleared by consultants (if involved): No 4. Interpretation of cardiac rhythm per radiographic technologist: SR 5. Tolerating adequate PO diet and medications: Yes 6. Return to near baseline physical activity or neurologic status: Yes Skidder Runner Nurse Safe discharge environment identified: Yes Barriers to discharge: Yes Entered by: Ca Major 11/15/2017 Please review provider order for any additional goals. Nurse to notify provider when observation goals have been met and patient is ready for discharge. VSS, up independent, A&Ox4, steady gait, denies dizziness, reports 5/10 headache, improved aftertylenol given field agronomist, denies N/T, plan for MRI this AM, neuro consult, daughter at bedside, will continue to monitor and provide supportive cares. CT TECH Plan of Care - Debra Araujo RN - 11/15/2017 2:30 AM CST Problem: Patient Care Overview Goal: Plan of Care/Patient Progress Review Outcome: Improving ROOM # 226 Living Situation (if not independent, order SW consult): lives independently Facility name: salesperson neckties: daughters listed on chart Activity level at baseline: ind Activity level on admit: ind Patient registered to observation; given Patient Bill of Rights; given the opportunity to ask questions about observation status and their plan of care. Patient has been oriented to the observation room, bathroom and call light is in place. Discussed discharge goals and expectations with patient/family. CT TECH documented in this encounter Plan of Treatment Not on filedocumented as of this encounter Procedures Procedure Name Priority Date/Time Associated Comments Diagnosis MR BRAIN W/O & W Routine 11/15/2017 9:15 AM Resul ts for this CONTRAST MRI CT TECH procedure are i n the results section. BASIC METABOLIC PANEL Routine 11/15/2017 6:37 AM Weakness on r ight Results for this MRI CT TECH side of face procedure are i n the results section. EKG 12-LEAD, TRACING Routine 11/15/2017 2:08 AM R esults for this ONLY MRI CT TECH procedure are i n the results section. CT HEAD W CONTRAST STAT 11/14/2017 11:58 Resul ts for this PM MRI CT TECH procedure are i n the results section. CTA HEAD NECK W STAT 11/14/2017 11:53 Results for this CONTRAST PM MRI CT TECH procedure are i n the results section. CT HEAD W/O CONTRAST STAT 11/14/2017 11:39 Res ults for this PM MRI CT TECH procedure are i n the results section. CBC WITH PLATELETS & Routine 11/14/2017 11:29 Res ults for this DIFFERENTIAL PM MRI CT TECH procedure are i n the results section. TROPONIN I Routine 11/14/2017 11:29 Results for this PM MRI CT TECH procedure are i n the results section. INR Routine 11/14/2017 11:29 Results for this PM MRI CT TECH procedure are i n the results section. PARTIAL THROMBOPLASTIN Routine 11/14/2017 11:29 R esults for this TIME PM MRI CT TECH procedure are i n the results section. BASIC METABOLIC PANEL Routine 11/14/2017 11:29 Re sults for this PM MRI CT TECH procedure are i n the results section. EKG 12-LEAD, TRACING STAT 11/14/2017 11:22 Res ults for this ONLY PM MRI CT TECH procedure are i n the results section. documented in this encounter Results MRI Brain w & w/o contrast (11/15/2017 9:[address] TECH) Anatomical Region Laterality Modality Head, SUBRAD MR NEURO, UMP MR NEURO, RAD MR Magnetic Resonance Specimen (Source) Anatomical Location Collection Method / Collectio n Time Received Time / Laterality Volume Impressions 11/15/2017 9:[address] TECH IMPRESSION: ?? 1. No evidence of acute infarct, mass, h emorrhage, or herniation. 2. Moderate diffuse parenchymal volume l oss and white matter changes likely due to chronic microvascular isch emic disease without significant change since prior. KATIA DAVID MD Narrative 11/15/2017 9:[address] TECH MRI BRAIN WITHOUT AND WITH CONTRAST ??11/15/2017 [...] distorted by artifact. No evidence of ac [place] intracranial hemorrhage. No mass effect or midline [...] distorted by artifact. No evidence of ac [place] intracranial hemorrhage. No mass effect or midline [...] (ABNORMAL) Basic metabolic panel (11/15/2017 6:[address] TECH) Analysis Performed At Patho logist Time Signature Sodium 141 133 - 144 11/15/2017 [facility] mmol/L 7:04 AM [facility] Potassium 4.1 3.4 - 5.3 11/15/2017 [facility] mmol/L 7:04 AM [facility] Chloride 109 94 - 109 11/15/2017 [facility] mmol/L 7:04 AM [facility] Carbon Dioxide 25 20 - 32 11/15/2017 [facility] mmol/L 7:04 AM [facility] Anion Gap 7 3 - 14 11/15/2017 [facility] mmol/L 7:04 AM [facility] Glucose 105 (H) 70 - 99 11/15/2017 [facility] mg/dL 7:04 AM [facility] Urea Nitrogen 33 (H) 7 - 30 11/15/2017 [facility] mg/dL 7:04 AM [facility] Creatinine 1.51 (H) 0.66 - 11/15/2017 [facility] 1.25 mg/dL 7:04 AM [facility] GFR Estimate 45 (L) >60 11/15/2017 [facility] mL/min/1.7 7:[address] Comment: Non GFR Calc GFR Estimate If 55 (L) >60 mL/min/1.7m2 11/15/2017 7:04 A M [facility] Comment: GFR Calc Calcium 8.8 8.5 - 10.1 mg/dL 11/15/2017 7:04 AM [facility] Specimen Anatomical Collection Method Collection Time Receive d Time (Source) Location / / Volume Laterality Blood specimen 11/15/2017 6:37 AM 018 6:38 (specimen) MRI CT TECH AM MRI CT TECH Jamie Gates MD LAB - BLOOD ORDERABLES Performing Organization Address City/State/ZIP Code Phon e Number [facility] [address] [address] [facility] [address] [phone] EKG 12-lead, tracing only (11/15/2017 2:[address] TECH) [facility] gist Method Time Signature Interpretation ECG Click View RADIOLOGY Image link RESULTS to view waveform and result Specimen (Source) Anatomical Collection Method Collection Time Re ceived Time Location / / Volume Laterality 11/15/2017 2:[address]CH Jamie Gates MD ECG ORDERABLES Performing Organization Address City/[facility]/ZIP Code Phon e Number RADIOLOGY RESULTS CT Head w Contrast (11/14/2017 11:[address] TECH) Anatomical Region Laterality Modality Head, NEURO, SUBRAD CT NEURO, SUBRAD CT NEURO, UMP CT Computed Tomography NEURO, RAD CT Specimen (Source) Anatomical Location Collection Method / Collectio n Time Received Time / Laterality Volume Impressions 11/15/2017 8:[address] TECH IMPRESSION: 1. Patent arteries in the neck [...] KATIA DAVID MD Narrative 11/15/2017 8:[address] CT ANGIOGRAM OF THE HEAD AND NECK [...] CTA Angiogram Head Neck (11/14/2017 11:[address] TECH) Anatomical Region Laterality Modality Head, SUBRAD CT NEURO, SUBRAD CT NEURO, UMP CT NEURO, Computed Tomography RAD CT Specimen (Source) Anatomical Location Collection Method / Collectio n Time Received Time / Laterality Volume Impressions 11/15/2017 8:[address]CH IMPRESSION: 1. Patent arteries in the neck [...] KATIA DAVID MD Narrative 11/15/2017 8:[address] CT ANGIOGRAM OF THE HEAD AND NECK [...] CT Head w/o Contrast (11/14/2017 11:[address] TECH) Anatomical Region Laterality Modality Head, SUBRAD CT NEURO, SUBRAD CT NEURO, UMP CT NEURO, Computed Tomography RAD CT Specimen (Source) Anatomical Location Collection Method / Collectio n Time Received Time / Laterality Volume Impressions 11/15/2017 8:[address]CH IMPRESSION: ?? 1. No evidence of acute intracranial hem orrhage, mass, or herniation. 2. There is generalized atrophy of the b rain. White matter changes are present in the cerebral hemispheres that are consistent with small vessel ischemic disease in this age angela ent. I agree with the overnight preliminary r eport by the radiologist. KATIA DAVID MD Narrative 11/15/2017 8:[address] CT SCAN OF THE HEAD WITHOUT CONTRAST [...] CT ORDERABLES Troponin I (11/14/2017 11:[address] TECH) athologist Signature Troponin I ES <0.015 0.000 - 11/14/2017 [facility] 0.045 ug/L 11:53 PM [facility] Comment: The 99th percentile for upper reference range is 0.045 ug/L. ??Troponin values in the range of 0.045 - 0.120 ug/L may b e associated with risks of adverse clinical events. Specimen Anatomical Collection Method Collection Time Receive d Time (Source) Location / / Volume Laterality 11/14/2017 11:29 11/14/[address] TECH 11:[address]CH Damian Mark MD LAB - BLOOD ORDERABLES Performing Organization Address City/[facility]/ZIP [facility] Phon e [facility] [address] [place], [place] [address] [address] [address] [address] [address], [facility] [phone] Partial thromboplastin time (11/14/2017 11:[address] TECH) athologist Signature PTT 30 22 - 37 sec 11/14/2017 [facility] 11:[address] TECH [facility] Specimen Anatomical Collection Method Collection Time Receive d Time (Source) Location / / Volume Laterality 11/14/2017 11:29 11/14/[address] TECH 11:[address]CH Damian Mark MD LAB - BLOOD ORDERABLES Performing Organization Address City/[facility]/ZIP [facility] Phon e Number [facility] [address] [place], [place] [address] [address] [address] [address], [facility] [phone] INR (11/14/2017 11:[address] TECH) athologist Signature INR 0.96 0.86 - 1.14 11/14/2017 [facility] 11:[address] TECH HOSPITAL Specimen Anatomical Collection Method Collection Time Receive d Time (Source) Location / / Volume Laterality 11/14/2017 11:29 11/14/[address] TECH 11:[address]CH Damian Mark MD LAB - BLOOD ORDERABLES Performing Organization Address City/State/ZIP Code Phon e Number [place] [address] [address] [place], [place] [address] [facility] [address] [place], [place] [address], [facility] [phone] (ABNORMAL) CBC with platelets differential (11/14/2017 11:29 PM [facility]) [facility] gist Method Time Signature WBC 6.1 4.0 - 11/14/2017 [facility] 11.0 11:34 PM [facility] 10e9/L [facility] RBC Count 4.23 (L) 4.4 - 5.9 11/14/2017 [facility] 10e12/L 11:34 PM [facility] Hemoglobin 13.7 13.3 - 11/14/2017 [facility] 17.7 g/dL 11:34 PM [facility] Hematocrit 41.0 40.0 - 11/14/2017 [facility] 53.0 % 11:34 PM [facility] MCV 97 78 - 100 11/14/2017 [facility] fl 11:34 PM [facility] MCH 32.4 26.5 - 11/14/2017 [facility] 33.0 pg 11:34 [facility] MCHC 33.4 31.5 - 11/14/2017 [facility] 36.5 g/dL 11:34 [facility] RDW 12.9 10.0 - 11/14/2017 [facility] 15.0 % 11:34 PM [facility] Platelet Count 122 (L) 150 - 450 11/14/2017 [facility] 10e9/L 11:34 PM [facility] Diff Method Automated 11/14/2017 [facility] Method 11:34 PM [facility] % Neutrophils 57.3 % 11/14/2017 [facility] 11:34 PM [facility] % Lymphocytes 27.8 % 11/14/2017 [facility] 11:34 [facility] % Monocytes 11.3 % 11/14/2017 [facility] 11:34 [facility] % Eosinophils 3.1 % 11/14/2017 [facility] 11:34 PM [facility] % Basophils 0.3 % 11/14/2017 [facility] 11:34 PM [facility] % Immature 0.2 % 11/14/2017 [facility] Granulocytes 11:34 PM [facility] Nucleated RBCs 0 0 /100 11/14/2017 [facility] 11:34 PM [facility] Absolute 3.5 1.6 - 8.3 11/14/2017 [facility] Neutrophil 10e9/L 11:34 PM [facility] Absolute 1.7 0.8 - 5.3 11/14/2017 [facility] Lymphocytes 10e9/L 11:34 PM [facility] Absolute 0.7 0.0 - 1.3 11/14/2017 [facility] Monocytes 10e9/L 11:34 PM [facility] Absolute 0.2 0.0 - 0.7 11/14/2017 [facility] Eosinophils 10e9/L 11:34 PM [facility] Absolute 0.0 0.0 - 0.2 11/14/2017 [facility] Basophils 10e9/L 11:34 PM [facility] Abs Immature 0.0 0 - 0.4 11/14/2017 [facility] Granulocytes 10e9/L 11:34 PM [facility] Absolute 0.0 11/14/2017 [facility] Nucleated RBC 11:34 PM [facility] Specimen Anatomical Collection Method Collection Time Receive d Time (Source) Location / / Volume Laterality 11/14/2017 11:29 11/14/[address] TECH 11:[address]CH Damian Mark MD LAB - BLOOD ORDERABLES Performing Organization Address City/State/ZIP Code Phon e Number [place] [address] [address] [address] [facility] [address] [phone] (ABNORMAL) Basic metabolic panel (11/14/2017 11:[address] TECH) Analysis Performed At Patho logist Time Signature Sodium 141 133 - 144 11/14/2017 [facility] mmol/L 11:53 PM [facility] Potassium 3.7 3.4 - 5.3 11/14/2017 [facility] mmol/L 11:53 PM [facility] Chloride 107 94 - 109 11/14/2017 [facility] mmol/L 11:53 PM [facility] Carbon Dioxide 26 20 - 32 11/14/2017 [facility] mmol/L 11:53 PM [facility] Anion Gap 8 3 - 14 11/14/2017 [facility] mmol/L 11:53 PM [facility] Glucose 103 (H) 70 - 99 11/14/2017 [facility] mg/dL 11:53 PM [facility] Urea Nitrogen 32 (H) 7 - 30 11/14/2017 [facility] mg/dL 11:53 PM [facility] Creatinine 1.67 (H) 0.66 - 11/14/2017 [facility] 1.25 mg/dL 11:53 PM [facility] GFR Estimate 40 (L) >60 11/14/2017 [facility] mL/min/1.7 11:[address] Comment: Non GFR Calc GFR Estimate If 49 (L) >60 mL/min/1.7m2 11/14/2017 11:53 PM [facility] Comment: GFR Calc Calcium 8.9 8.5 - 10.1 mg/dL 11/14/2017 11:53 PM [facility] Specimen Anatomical Collection Method Collection Time Receive d Time (Source) Location / / Volume Laterality 11/14/2017 11:29 11/14/[address] TECH 11:[address]CH Damian Mark MD LAB - BLOOD ORDERABLES Performing Organization Address City/State/ZIP Code Phon e Number [place] [address] [phone] EKG 12 lead (11/14/2017 11:[address] TECH) [facility] Method Time Signature Interpretation ECG Click View RADIOLOGY Image link RESULTS to view waveform and result Specimen (Source) Anatomical Collection Method Collection Time Re ceived Time Location / / Volume Laterality 11/14/2017 11:[address] Damian Mark MD ECG ORDERABLES Performing Organization Address City/State/ZIP [facility] Phon e Number RADIOLOGY RESULTS documented [...] chloride BOLUS New Bag 11/14/2017 11:[address] TECH 80 mLs Intravenous, 1,000 mL, ONCE, On 11/14/17 at 2330, For 1 dose acetaminophen (TYLENOL) tablet 1,000 mg Given 11/15/2017 1:[address] TECH 1,000 mg 1,000 mg, Oral, ONCE, On 11/15/17 at 0054, For 1 dose, Maximum acetaminophen dose from all sources = 75 mg/kg/day not to exceed 4 gram acetaminophen (TYLENOL) tablet 650 mg Given 11/15/2017 6:[address]CH 650 mg 650 mg, Oral, EVERY 4 HOURS PRN, mild pain, Starting on 11/15/17 at 0204, Alternate ibuprofen (if ordered) with acetaminophen. Maximum acetaminophen dose from all sources = 75 mg/kg/day not to exceed 4 grams/day. gadobutrol (GADAVIST) injection 10 mL Given 11/15/2017 8:[address] TECH 10 mLs 10 mL, Intravenous, ONCE, On 11/15/17 at 0805, For 1 dose, Supplied by, and administered by MRI. iopamidol (ISOVUE-370) solution 500 mL Given 11/14/2017 11:[address] TECH 120 mLs 500 mL, Intravenous, ONCE, On 11/14/17 at 2330, For 1 dose lisinopril (PRINIVIL/ZESTRIL) tablet 5 m g 5 mg, Oral, DAILY, First dose on 11/15/17 at 1102, Hold for SBP < 100 LORazepam (ATIVAN) injection 0.5-1 mg Given 11/15/2017 8:[address] TECH 0.5 mg 0.5-1 mg, Intravenous, ONCE, On [...] Recently Administered Medications Times are shown in MRI CT TECH. Scheduled Medication Order 11/13/2017 11/14/2017 11/15/2017 0.9% [...] minutes.
documented in this encounter Care Teams Propeller Layout Worker Relationship Specialty Start Date End Date Bandar, Kehinde Portillofield PCP - General 05/12/[address] [place] [id number] documented as of this encounter
--- OUTSIDE RECORDS SUMMARY | 2022-07-17 13:56 | XMS_ITS | Encounter Summary ---
:1940 Author Organization [place] Address [address] [place] [address] Care Team Providers Name Role Phone Clinic, [facility] Primary Care Provider [phone] Reason for Visit Reason Onset Date Comments Previsit 11/10/[address] Fatuma ng--visit 11/11/17 Encounter Details Date Type Department Care Team Description 11/10/2017 Telephone [facility] Heart Ebony Arnold, Previsit (New patient [facility] RN for Dr Lugo--visit 1779 [facility] 11/11/17) [address] [address] Social History Tobacco Use Types [...] reflect what patient is taking. JOSE Shahid RMINATION INSPECTOR documented in this encounter Plan of Treatment Not on filedocumented as of this encounter Visit Diagnoses Not on filedocumented in this encounter Care Teams Boiler Shop Mechanic Relationship Specialty Start Date End Date Clinic, [facility] PCP - General 05/12/[address] [place] [id number] documented as of this encounter
--- OUTSIDE RECORDS SUMMARY | 2022-07-17 13:56 | XMS_ITS | Encounter Summary ---
:1940 Author Organization [place] Address [address] [place] [address] Care Team Providers Name Role Phone Clinic, [facility] Primary Care Provider [phone] Reason for Visit Reason Onset Date Comments Referral 05/21/2018 Encounter Details Date Type Department Care Team Description 05/21/2018 [facility] Cindy Taylor, welt stitcher Tram [address] [address] Social History Tobacco Use Types [...] 05/21/2018 4:03 PM CDT Pt referred to [facility] via fax by Marija Ramirez MD for known AAA increased in size to 4.4X4.6 cm- pt has known about AAA for past 55 years and has monitored it with annual US. US done on 05/17/18 in care [facility] from [facility]. Pt needs to be scheduled for consult with Dr. Lewis. Will route to scheduling to coordinate an appointment within the next week. SHASTA Chand, RN documented in this encounter Plan of Treatment Not on filedocumented as of this encounter Visit Diagnoses Not on filedocumented in this encounter Care Teams It Operations Manager Relationship Specialty Start Date End Date [facility], [facility] PCP - General 05/12/[address] [place] [phone] documented as of this encounter
--- OUTSIDE RECORDS SUMMARY | 2022-07-17 13:56 | XMS_ITS | Encounter Summary ---
:1940 Author Organization [place] Address [facility] [place] [address] Care Team Providers Name Role Phone [facility], [facility] Primary Care Provider [phone] Reason for Referral - Closed Specialty Diagnoses / Procedures Referred By Contact Refer red To Contact Diagnoses Paroxysmal atrial fibrillation (H) Radha Galan MD Procedures Zio Patch Monitor [address] [place] [address] Referral ID Status Reason Start Date Expiration Date Visits Requ ested Visits Authorized [id number] Closed 11/25/2017 11/25/2018 1 1 AGE CHECKER Reason for Visit Reason Comments Atrial Fib new Dx - Closed Specialty Diagnoses / Procedures Referred By Contact Refer red To Contact Diagnoses Paroxysmal atrial fibrillation (H) Radha Galan MD [address] [place] [address] Referral ID Status Reason Start Date Expiration Date Visits Requ ested Visits Authorized [id number] Closed 06/11/2017 06/11/2018 1 1 Encounter Details Date Type Department Care Team Description 11/11/2017 Office Visit [facility] Radha Galan [facility] Tram WELSH fibrillation (H) [address] [facility] [address] [place] [address] [place] [address] [phone] Social History Tobacco Use Types Packs/Day Years [...] Comments Blood Pressure 146/78 11/11/2017 8:56 AM PACKAGE CHECKER Pulse 54 11/11/2017 8:56 AM PACKAGE CHECKER Temperature - - Respiratory Rate - - Oxygen Saturation - - Inhaled Oxygen Concentration - - Weight 88 kg (194 lb) 11/11/2017 8:56 AM PACKAGE CHECKER Height 170.2 cm (5' 7.01) 11/11/2017 8:56 AM PACKAGE CHECKER Body Mass Index 30.38 11/11/2017 8:56 AM PACKAGE CHECKER documented in this encounter Progress Notes Radha [...] discharged on amiodarone and did see a pattern wheel maker over at [facility] for followup. He was recommended to wear a 24-hour Holter monitoring which demonstrated no evidence of atrial tachyarrhythmias. The patient checked his blood pressure twice a day and noticed heart rate in the 50s. He is doing quite well otherwise. Denies any shortness of breath, orthopnea, PND. His blood pressureseemed to be difficult to control and has seen a multi disciplined language analyst for that as well as for [...] to see us in a year in [facility] to his convenience, as the patient does live in that area. We will notify the patient regarding results of the Zio Patch monitor and have him follow up with you or my partners in a year from now. RADHA GALAN MD MT: [id number] Name: SPEEDY HENDRICKS Account: [id number] : 1940 Service Date: 11/11/2017 Document: [id number] AGE CHECKER Radha Galan MD - 11/11/2017 8:45 AM CST HPI and Plan: See dictation [id number] Orders Placed This Encounter Procedures ??? EKG [...] Galan, MD [address] [place] [address] AGE CHECKER documented in this encounter Plan of Treatment Not on filedocumented as of this encounter Procedures Procedure Name Priority Date/Time Associated Diagnosis Comme nts EKG 12-LEAD Routine 11/12/2017 10:13 Paroxysmal atrial Result s for this COMPLETE W/READ - AM PACKAGE CHECKER fibrillation (H) proced ure are in CLINICS the results section. documented in this encounter Results Zio Patch Monitor (11/22/2017) Narrative [facility] - 11/22/2017 [facility] [address] [facility] [address] [facility] [address] 11/17/2017 Patient: ??Speedy Hendricks Chart: [id number] : ??1940 Age: ??77 year old Sex: ??male Procedure: ??ZioPatch Monitor. Hi Ranger Operator performing hook-up: ??Kiarra Rubalcava Radha Gamboa MD CV CARDIAC SERVICES ORDERABL ES Performing Organization Address City/State/ZIP Code Phon e Number [facility] EKG 12-lead complete w/read - Clinics (performed today) (11/12/2017 10:13 AM PACKAGE CHECKER) Narrative This result has an attachment that is no t available. Radha Gamboa MD ECG ORDERABLES documented in this encounter Visit Diagnoses Diagnosis Paroxysmal atrial fibrillation (H) Atrial fibrillation Paroxysmal atrial fibrillation (H) Atrial fibrillation documented in this encounter Care Teams Human Resources Consultant Relationship Specialty Start Date End Date Clinic, [facility] PCP - General 05/12/[address] [place] [address] documented as of this encounter
--- OUTSIDE RECORDS SUMMARY | 2022-07-17 13:56 | XMS_ITS | Encounter Summary ---
:1940 Author Organization [place] Address [facility] [place] [address] Care Team Providers Name Role Phone Clinic, [facility] Primary Care Provider [phone] Reason for Visit Reason Onset Date Comments Medication Question 05/24/2018 Encounter Details Date Type Department Care Team Description 05/24/2018 Telephone [facility] Juan Lewis on Question Vascular Clinic Félix Nava MD [address] [place] [address] [address] [place] [address] (Wo rk) Social History Tobacco Use Types [...] Additional comments: Please call Raquel his daughter [phone] Phone number to reach patient: Home number on file [phone] (home) Best Time: anytime Can we leave a detailed message on this number? YES Serena Almaguer MA documented in this encounter Plan of Treatment Not on filedocumented as of this encounter Visit Diagnoses Not on filedocumented in this encounter Care Teams Ship Rigger Relationship Specialty Start Date End Date Clinic, [facility] PCP - General 05/12/[address] [place] [address] documented as of this encounter
--- OUTSIDE RECORDS SUMMARY | 2022-07-17 13:56 | XMS_ITS | Encounter Summary ---
:1940 Author Organization [place] Address [address] [place] [address] Care Team Providers Name Role Phone Clinic, [facility] Primary Care Provider [phone] Reason for Visit Reason Onset Date Comments Medication Question 05/13/2017 meds Encounter Details Date Type Department Care Team Description 05/13/2017 Telephone [facility] Heart Abimbola Brown M edication Question Clinic Tram GARCIA (meds) [address] [facility] [address] [place] [address] Social History Tobacco Use Types Packs/Day [...] and LM for her to call this journalists and other writers back. JNelsonRN documented in this encounter Plan of Treatment Not on filedocumented as of this encounter Visit Diagnoses Not on filedocumented in this encounter Care Teams General House Worker Relationship Specialty Start Date End Date Clinic, [facility] PCP - General 05/12/17 [address] [place] [address] documented as of this encounter
--- OUTSIDE RECORDS SUMMARY | 2022-07-17 13:56 | XMS_ITS | Encounter Summary ---
:1940 Author Organization [place] Address [address] [place] [address] Care Team Providers Name Role Phone Clinic, [facility] Primary Care Provider [phone] Reason for Referral - Closed Specialty Diagnoses / Procedures Referred By Contact Refer red To Contact Diagnoses Paroxysmal atrial fibrillation (H) Taran Lugo MD Procedures Zio Patch Monitor [address] [place] [address] Referral ID Status Reason Start Date Expiration Date Visits Requ ested Visits Authorized [id number] Closed 11/25/2017 11/25/2018 1 1 RETE CRAFTSMAN Reason for Visit (Routine) - Closed Specialty Diagnoses / Procedures Referred By Contact Refer red To Contact Cardiology Procedures Zzrh Cardiac Test Rscc ZIOPATCH MONITOR [address] [place], [place] [address] Phone: Fax: Referral ID Status Reason Start Date Expiration Date Visits Requ ested Visits Authorized [id number] Closed 11/17/2017 11/17/2018 1 1 Encounter Details Date Type Department Care Team Description 11/17/2017 Hospital Encounter [facility] Taran Lugo [facility] atrial [facility] MD fibrillation (H) [address] [place], [place] [phone] Social History Tobacco Use Types Packs/Day Years [...] Per EPIC and pt, pt's daughter called [facility]'s nurse and they are aware of the situation. I called pt back and he did mail the monitor yesterday. We will see what shows up and see if Brittney would like him to redo the monitor or keep what he gets from the one mailed back. RETE CRAFTSMAN Kiarra Rubalcava - 11/17/2017 3:49 PM CST Ziopatch heart monitor was set up. Patient stated that Dr. Quintanilla ordered the event monitor but Dr. Lugo wanted him to wear a ziopatch for 14 days. Patient was then set up with a ziopatch. RETE CRAFTSMAN documented in this encounter Plan of Treatment Not on filedocumented as of this encounter Procedures Procedure Name Priority Date/Time Associated Diagnosis Comme nts ZIO PATCH HOLTER Routine 11/22/2017 Paroxysmal atrial Result s for this fibrillation (H) procedure a re in the results section . documented in this encounter Results Zio Patch Monitor (11/22/2017) Narrative [facility] - 11/22/2017 [facility] [address] [place] [address] 11/17/2017 Patient: ??Speedy Burris Moro Chart: [id number] : ??1940 Age: ??77 year old Sex: ??male Procedure: ??ZioPatch Monitor. Parachute Officer performing hook-up: ??Kiarra Rubalcava Taran Gamboa MD CV CARDIAC SERVICES ORDERABL ES Performing Organization Address City/State/ZIP Code Phon e Number RADIANT documented in this encounter Visit Diagnoses Diagnosis Paroxysmal atrial fibrillation (H) Atrial fibrillation documented in this encounter Care Teams Time Study Analyst Relationship Specialty Start Date End Date [facility], [facility] PCP - General 05/12/[address] [place], [place] [id number] documented as of this encounter
--- OUTSIDE RECORDS SUMMARY | 2022-07-17 13:56 | XMS_ITS | Encounter Summary ---
:1940 Author Organization [place] Address [address] [place] [address] Care Team Providers Name Role Phone Clinic, [facility] Primary Care Provider [phone] Reason for Visit Reason Onset Date Comments Director Of Public Safety 11/23/2017 Encounter Details Date Type Department Care Team Description 11/23/2017 Telephone [facility] Heart Erica Saldana, Director Of Public Safety Clinic Tram GARCIA [address] [facility] [address] [place] [address] Social History Tobacco Use Types [...] Olive Saldana RN - 11/27/2017 4:02 PM LODGE ATTENDANT Call to daughter; Ed was seen again in the ED on 11-15-17, 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 Eliquis was started by Dr Quintanilla/ Eusebia E ATTENDANT Telephone Encounter - Taran Lugo MD - [...] if he is on one. Thanks, qp E ATTENDANT Telephone Encounter - Olive Saldana RN - 11/23/2017 2:47 PM LODGE ATTENDANT Call from daughterRaquel. States her dad wore a ZioPatch ordered by Dr Lugo to assess AF burden (ischemic/infarct areas seen in the brains). Daughter states the monitor was worn for 4 days (preferred2 weeks); it fell off she feels d/t the hair on his chest. Will note to Dr Lugo to advise re: havinganother placed. SueLangenbrunnerRN E ATTENDANT documented in this encounter Plan of Treatment Not on filedocumented as of this encounter Visit Diagnoses Not on filedocumented in this encounter Care Teams Languages And Literature Instructor Relationship Specialty Start Date End Date [facility], [facility] PCP - General 05/12/[address] [place] [address] documented as of this encounter
--- OUTSIDE RECORDS SUMMARY | 2022-07-17 13:57 | XMS_ITS | Encounter Summary ---
:1940 Author Organization [place] Address [address] [place] [address] Care Team Providers Name Role Phone Primary DrDipak MD Primary Care Provider Unavailable Celina Coley Primary Care Provider [facility] [place] Primary Care Provider [phone] Jon White MD Unavailable [phone] Ramiro Loco MD Unavailable Encounter Details Date Type Department Care Team Description 11/29/2014 [facility] [place] [address] [place] [address] [place], [place] [phone] [address] Social History Tobacco Use Types Packs/Day Years [...] Hydration: adequate Anesthetic complications: no Additional Notes: OARD MOTOR INSPECTOR Anesthesia Preprocedure Evaluation - Néstor Stack - [...] discussed with: patient Post-op plan: routine recovery OARD MOTOR INSPECTOR documented in this encounter Miscellaneous Notes Anesthesia [...] documented as of this encounter Care Teams Head Animal Trainer Relationship Specialty Start Date End Date Primary Dipak Kasper MD PCP - General 09/21/1204/18 Celina Coley PCP - General Family Practice 05/05/17 05/11/[address] [address] [facility] PCP - General 05/12/[address] [phone] Jon White Assigned Surgical Provider 08/10/20 12/08/20 MD Aubrey [address] [place], [place] [phone] Ramiro Loco MD Assigned Heart and 08/10/20 05/11/21 [address] Vascular Provider [place] [address] documented as of this encounter
--- OUTSIDE RECORDS SUMMARY | 2022-07-17 13:57 | XMS_ITS | Encounter Summary ---
:1940 Author Organization [place] Address [address] [place] [address] Care Team Providers Name Role Phone Primary DrDipak MD Primary Care Provider Unavailable Celina Coley Primary [facility] Provider [facility] Primary Care Provider [phone] Jon White MD Unavailable [phone] Ramiro Loco MD Unavailable Encounter Details Date Type Department Care Team Description 05/03/2014 Surgery - [facility] [place], [facility] OR [facility] [address] [place] [address] 17 [facility] [address] [address] [place] [address] [phone] (Wo rk) Social History Tobacco Use Types [...] documented as of this encounter Care Teams Cd Manufacturing Supervisor Relationship Specialty Start Date End Date Primary Dipak Kasper MD PCP - General 09/21/1204/18 Celina Coley PCP - General Family Practice 05/05/17 05/11/[address] [address] [facility] P[facility] - General 05/12/[address] [address] Jon White Assigned Surgical Provider 08/10/20 12/08/20 MD Aubrey [address] [place] [address] Ramiro Loco MD Assigned Heart and 08/10/20 05/11/21 [address] Vascular Provider [place] [address] documented as of this encounter
--- OUTSIDE RECORDS SUMMARY | 2022-07-17 13:57 | XMS_ITS | Encounter Summary ---
:1940 Author Organization [facility] Address [address] [place] [id number] Care Team Providers Name Role Phone Celina Coley Primary Care Provider [facility] [place] Primary [facility] Provider [phone] Reason for Referral Specialty Diagnoses / Procedures Referred By Contact Tam parson To Contact Sanjuanita Ponce RN Referral ID Status Reason Start Date Expiration Date Visits Requ ested Visits Authorized Specialty Diagnoses / Procedures Referred By Contact Tam parson To Contact Adrian Pleitez MD [address] [place] [id number] Referral ID Status Reason Start Date Expiration Date Visits Requ ested Visits Authorized Specialty Diagnoses / Procedures Referred By Contact Tam parson To Contact Adrian Pleitez MD [address] [facility] [address] [place] [address] Referral ID Status Reason Start Date Expiration Date Visits Requ ested Visits Authorized Specialty Diagnoses / Procedures Referred By Contact Tam parson To Contact Adrian Pleitez MD [address] [place] [address] Referral ID Status Reason Start Date Expiration Date Visits Requ ested Visits Authorized ome Health Therapies & Aides Specialty Diagnoses / Procedures Referred By Contact Refer red To Contact Adrian Pleitez MD [address] [place] [address] Referral ID Status Reason Start Date Expiration Date Visits Requ ested Visits Authorized - Closed Specialty Diagnoses / Procedures Referred By Contact Refer red To Contact Diagnoses Paroxysmal atrial fibrillation (H) Taran Lugo MD [address] [place] [id number] Referral ID Status Reason Start Date Expiration Date Visits Requ ested Visits Authorized [id number] Closed 06/11/2017 06/11/2018 1 1 Reason for [...] Care [address] [place] [address] Phone: Referral ID Status Reason Start Date Expiration Date Visits Requ ested Visits Authorized [id number] 1 1 Encounter Details Date Type Department Care Team Description 05/05/2017 [facility] Leesa Martinez MD [facility] [address] [id number] Opioid overdose, accidental or unintenti onal, initial encounter (Primary Dx); - Encounter Miladys Phillips MD [address] [id number] Aspiration pneumonia, unspecified aspira tion pneumonia type, unspecified laterality, unspecified part of lung (H); 05/12/2017 [facility] Stephany Farley MD [address] [place] [address] Encephalopathy; [address] Paroxysmal atrial fibrillati on (H); [place] Hyperlipidemia LDL goal <70; [id number] Acute left-sided low back pa in without sciatica; [phone] Unresponsivenes s Social History Tobacco Use Types [...] Pleitez MD - 05/12/2017 3:12 PM CDT [facility] Hospitalist discharge note Date of Service [...] follow-up with cardiology, primary care physician in [place] Speedy Mcduffie is a 76 year old male with a past medical history of Htn, CKD, atrial tachycardia, chronic back pain who was admitted on 05/05/2017 with encephalopathy thought due to opioid overdose. ?? Altered mental status/Acute toxic encephalopathy - resolved Patient found by daughter (Raquel, MECHANIC WELDER TRUCK DRIVER) after likely prolonged period of unresponsiveness [...] taking scheduled morphine 15mg ER BID with [place] 7.5/325 1-1.5 tabs PRN q4-6 hours started the week COMPUTATIONAL LINGUIST. Also had been taking gabapentin and flexeril. [...] ? Suspected Aspiration PNA: as above Daughter (MECHANIC WELDER TRUCK DRIVER) found patient with large amount of [...] had been managed by his PMD and COMPUTATIONAL LINGUIST was on Morphine 15 mg po BID (daughter reported that in the past he was confused with Oxycontin),??L[place]bock 7/325 mg 1 tab po q4-6 h; he is also on scheduled Gabapentin and prn Flexeril -had a recent admission to [facility] from 04/28-04/30 for severe lower back [...] then stop - Consulted PT/OT. ? HTN: COMPUTATIONAL LINGUIST on Metoprolol which was dced with bradycardia. [...] Mendes LSW - 05/12/2017 11:10 AM CDT [facility]: [phone]. documented in this encounter Medications at Time of Discharge Medication Sig Dispensed Refills Start Date End Date atorvastatin (LIPITOR) 40 Take 1 tablet (40 30 tablet 0 MG tabletIndications: mg) by mouth daily Hyperlipidemia LDL goal <70, Acute left-sided low back pain without sciatica METOPROLOL TARTRATE PO Take 50 mg by 0 11/05/2018 mouth 2 times daily. levofloxacin (LEVAQUIN) Take 1 tablet (500 4 [...] mouth daily tabletIndications: Paroxysmal atrial fibrillation (H) PREDNISONE PO Filled on 04/30/17. 0 Take [...] continuation of in hospital lisinopril, restart of COMPUTATIONAL LINGUIST metoprolol (had been advised against rate slowing agents by cardiology), restart of COMPUTATIONAL LINGUIST flexeril and unclear amiodarone plan. states that [...] hospitalization events. -Raquel given phone # to [facility] and names of last 2 providers seen. -Provided information on creatinine and GFR lab values as well as last administered doses of PRN metoprolol (05/09), PO metoprolol (05/07 - 1/ COMPUTATIONAL LINGUIST dose) and daily lisinopril (05/12) during hospital [...] located a hospital bed for rent near [place] and has made arrangements for delivery today. SW notified [place] and hospitalist to meet with daughter.per request. CC made referral to [facility] per request. Pt's family has used this agency previously. Team Members notified: Hospitalist, RN, CC, LOW VOLTAGE ELECTRICIAN Plan: Discharge home today with family and home care services through [facility]. Sanjuanita Ponce RN - 05/12/2017 9:44 AM CDT Met w/ pt's dtr Raquel and ADRIANO to discuss dc planning. Raquel has some concerns about pt going home rather than TCU but her sister Chastity is on FMLA and intends to stay at home to care for him. Raquel is a [facility] ICU nurse and patient care at [employer]. She has been on FMLA but intends [...] better today and therapy is recommending OP PT/OT/AFTERNOON NANNY if not going to TCU. His pain level is still high with ambulation so he would benefit from home care initially as he will not be going out except to his appts. He would need an RN as well. Raquel would prefer to use home care through the [facility] as it is local and they have used it before. Raquel has contacted a hospital rental company and intends to rent a hospital bed for a while at home. She states this will be delivered today and she is taking care of those arrangements. Also discussed multiple f/u appts needed. She would like to stay within the [facility] system for vascular, cardiac, and sleep study. Contacted [facility] intake [phone] and spoke to Lynn. They would be able to see pt tomorrow at home. Faxed [phone] face sheet and H&P. Will fax orders when completed. Contacted [facility] to make f/u appt with Dr Lugo. Appt made for ThuJun 19 at 2:15 to discuss AC in light of AAA. Spoke w/ Natasha Iraheta FRONT END SPECIALIST [facility]. They do not need to see pt in f/u as strokes likely more related to hypoxia than AF and cardiology will be addressing AF issue. Contacted pt's PCP Dr Celina Coley at [facility]. Appt made for 05/15 at 10:00. Will fax handoff when dc orders complete. Contacted [facility] and appt made for ThuJun [address] Taylor to discuss sleep study. Await Dr Pleitez for further orders for vascular and urology f/u timing. Discussed transportation with dtr Raquel and bedside RN. 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 Faxed orders to [facility] and left message with Lynn to call Raquel at [phone] toschedule appts. Sent [facility] handoff. Faviochayo Berrios Mattie - 05/11/2017 4:28 PM CDT [facility] Progress Note [facility], Palliative Team PRIMARY FOCUS: ? Symptom/pain management ?? Emotional/spiritual/moravian distress ILLNESS CIRCUMSTANCES: ?? Reviewed documentation. Reflective conversation shared with Ed, which integrated elements of illnessand family narratives.? Context of Serious Illness/Symptom(s) - Pt overdosed on opioid pain relievers accidentally upon treatment for a broken tailbone. ?? Resources for Support - Strong family support from and two daughters, along with a brother who is a Mandaen scooter mechanic DISTRESS: ? Emotional/Existential/Relational Distress - Pt is notably thankful for surviving this overdose. He sees that he is not finished with this life, and he is beginning to look toward how best to spend his remaining time. 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 ?? Spiritual/Confucianism Distress - None discussed. Pt surprisingly comfortable with his reality of surviving. ?? Social/Cultural/Economic Distress - None discussed? SPIRITUAL/HOAHAOISM (Coping): ? Christian/Mariah - Worship. Pt did not particularly identify his own [...] has not discharged. ? Mattie Berrios M.Div. Laser Print Operator Pager [phone] Kassy Go APRN DENTISTRY TEACHER - 05/11/2017 3:55 PM CDT [facility] Palliative Care Progress Note Speedy Mdcuffie Date of Admission: 05/05/2017 Date of Service [...] if evening or weekend. Milana Go APRN, [facility] Palliative Medicine Pager [phone] Attestation: Total time on the floor involved [...] and are neighbors. Pt' daughterRaquel is an MECHANIC WELDER TRUCK DRIVER and daughter Chastity is a hard rock miner. Chastity states she is currently on FMLA. [...] Nikhil Rodriguez, - 05/11/2017 10:51 AM CDT [facility] Hospitalist Progress Note Nikhil Rodriguez D.O. Date of service (Date I saw patient): 05/11/2017 Assessment & Plan Speedy Mcduffie is a 76 year old male with a past medical history of Htn, CKD, atrial tachycardia, chronic back pain who was admitted on 05/05/2017 with encephalopathy thought due to opioid overdose. Altered mental status/Acute toxic encephalopathy - resolved Patient found by daughter (Raquel, MECHANIC WELDER TRUCK DRIVER) after likely prolonged period of unresponsiveness [...] taking scheduled morphine 15mg ER BID with [place] 7.5/325 1-1.5 tabs PRN q4-6 hours started the week COMPUTATIONAL LINGUIST. Also had been taking gabapentin and flexeril. [...] ? Suspected Aspiration PNA: as above Daughter (MECHANIC WELDER TRUCK DRIVER) found patient with large amount of [...] had been managed by his PMD and COMPUTATIONAL LINGUIST was on Morphine 15 mg po BID (daughter reported that in the past he was confused with Oxycontin),??[place] 7/325 mg 1 tab po q4-6 h; he is also on scheduled Gabapentin and prn Flexeril -had a recent admission to [facility] from 04/28-04/30 for severe lower back [...] then stop - Consulted PT/OT. ? HTN: COMPUTATIONAL LINGUIST on Metoprolol which was dced with bradycardia. [...] outpt appt will be scheduled to discuss correction option in light of AAA Interval History: [...] Taran Lugo MD Counters, Natasha Li APRN DENTISTRY TEACHER - 05/11/2017 9:03 AM CDT [facility] Daily Note Admission Date:05/05/2017 Date of [...] Sensory: Normal to light touch Coordination: Intact [id number] Gait: Up with assistance Cardiovascular: Regular rate [...] of small vessel ischemic disease. Natasha Iraheta, WATER CHEMIST-BC Associated attestation - Raúl Keane MD - [...] Greene MD - 05/10/2017 5:32 PM CDT [facility] Hospitalist Progress Note Assessment & Plan Speedy Mcduffie is a 76 year old male who was admitted on 05/05/2017. 76 year old male who was brought in for evaluation of unresponsiveness. ? 1. Altered mental status/Acute toxic encephalopathy Patient found by daughter (Raquel, MECHANIC WELDER TRUCK DRIVER) after likely prolonged period of unresponsiveness and suspected aspiration. Airway was cleared by daughter, but patient was hypoxic in the 60s for what soundslike at least 40 minutes before oxygen was available. Patient responded to narcan and thus it was suspected that patient had an unintentional opioid overdose with worsening of renal function and taking scheduled morphine 15mg ER BID with [place] 7.5/325 1-1.5 tabs PRN q4-6 hours started [...] ? 2. Suspected Aspiration PNA - Daughter (MECHANIC WELDER TRUCK DRIVER) found patient with large amount of [...] had been managed by his PMD and COMPUTATIONAL LINGUIST was on Morphine 15 mg po BID (daughter reported that in the past he was confused with Oxycontin),??[place] 7/325 mg 1 tab po q4-6 h; he is also on scheduled Gabapentin and prn Flexeril -and a recent admission to [facility] from 04/28-04/30 for severe lower back [...] Consulted PT/OT. ? 6. H/o HTN - COMPUTATIONAL LINGUIST on Metoprolol 50 mg po BID for [...] Delgado MD - 05/10/2017 4:04 PM CDT [facility] Cardiology Progress Note Date of Service [...] Delgado MD - 05/09/2017 2:04 PM CDT [facility] Cardiology Progress Note Date of Service [...] Greene MD - 05/09/2017 11:58 AM CDT [facility] Hospitalist Progress Note Assessment & Plan Speedy Mcduffie is a 76 year old male who was admitted on 05/05/2017. 76 year old male who was brought in for evaluation of unresponsiveness. ? 1. Altered mental status/Acute toxic encephalopathy Patient found by daughter (Raquel, MECHANIC WELDER TRUCK DRIVER) after likely prolonged period of unresponsiveness and suspected aspiration. Airway was cleared by daughter, but patient was hypoxic in the 60s for what soundslike at least 40 minutes before oxygen was available. Patient responded to narcan and thus it was suspected that patient had an unintentional opioid overdose with worsening of renal function and taking scheduled morphine 15mg ER BID with [place] 7.5/325 1-1.5 tabs PRN q4-6 hours started [...] ? 2. Suspected Aspiration PNA - Daughter (MECHANIC WELDER TRUCK DRIVER) found patient with large amount of [...] had been managed by his PMD and COMPUTATIONAL LINGUIST was on Morphine 15 mg po BID (daughter reported that in the past he was confused with Oxycontin),??[place] 7/325 mg 1 tab po q4-6 h; he is also on scheduled Gabapentin and prn Flexeril -and a recent admission to [facility] from 04/28-04/30 for severe lower back [...] Consulted PT/OT. ? 6. H/o HTN - COMPUTATIONAL LINGUIST on Metoprolol 50 mg po BID for [...] Bed to Chair/Chair to Bed Level of Faith: Bed to Chair moderate assist (50% patients effort) Physical Assist/Nonphysical Assist: Bed to Chair 2 persons Weight-Bearing Restrictions full weight-bearing Assistive Device - Transfer Skill Bed to Chair Chair to Bed Rehab Eval rolling walker Transfer Skill: Sit to Stand Level of Faith: Sit/Stand minimum assist (75% patients effort) Physical Assist/Nonphysical Assist: Sit/Stand 2 persons Transfer Skill: Sit to Stand full weight-bearing Assistive Device for Transfer: Sit/Stand rolling walker Transfer Skill: Toilet Transfer Level of Faith: Toilet moderate assist (50% patients effort) Physical Assist/Nonphysical Assist: Toilet 2 persons Assistive Device seat riser;grab bars Balance Balance Comments Reduced dynamic balance Upper Body Dressing Level of Faith: Dress Upper Body minimum assist (75% patients effort) Lower Body Dressing Level of Faith: Dress Lower Body maximum assist (25% patients effort) Physical Assist/Nonphysical Assist: Dress Lower Body 1 person assist Grooming Level of Faith: Grooming stand-by assist Activities of Daily Living [...] in agreement with plan of care Yes [facility] AM-PAC TM 6 Clicks ?? 2016, Trustees of [facility], under license to [employer]. All rights reserved. 6 Clicks Short Forms Basic Mobility Inpatient Short Form [facility] AM-PAC??? 6 Clicks Daily Activity Inpatient [...] for IV heparin. Previously reported pauses so water vessel captain BB on hold. Could consider resuming BB and monitoring for pauses or short acting CCB. Would recommending re- consulting EP in am if cards agrees. Continue to monitor on tele. Lindsay Watt PA-C - 05/08/2017 9:13 PM CDT Paged by nursing regarding persistent sinus tachycardia in the 140s this evening. Pt asymptomatic. Reviewed chart. Pt with tachybrady syndrome. Cardiology following. Pt's COMPUTATIONAL LINGUIST BB has been on hold as wasalternating between periods of sinus tach and sinus dani with up to 3 second pause. Will order PRN IV Metoprolol 2.5 mg q 4 hrs PRN. Monitor. If pt should become symptomatic or HR's continue to be persistently elevated, could increase dose of IV Metoprolol or reinitiate COMPUTATIONAL LINGUIST BB. Stephany Farley MD - 05/08/2017 2:27 PM CDT [facility] Hospitalist Progress Note Date of Service (when I saw the patient): 05/08/2017 Assessment & Plan Speedy Mcduffie is a 76 year old male who was brought in for evaluation of unresponsiveness. ? 1. Altered mental status/Acute toxic encephalopathy Patient found by daughter (Raquel, MECHANIC WELDER TRUCK DRIVER) after likely prolonged period of unresponsiveness and suspected aspiration. Airway was cleared by daughter, but patient was hypoxic in the 60s for what soundslike at least 40 minutes before oxygen was available. Patient responded to narcan and thus it was suspected that patient had an unintentional opioid overdose with worsening of renal function and taking scheduled morphine 15mg ER BID with [place] 7.5/325 1-1.5 tabs PRN q4-6 hours started [...] ? 2. Suspected Aspiration PNA - Daughter (MECHANIC WELDER TRUCK DRIVER) found patient with large amount of [...] had been managed by his PMD and COMPUTATIONAL LINGUIST was on Morphine 15 mg po BID (daughter reported that in the past he was confused with Oxycontin),??[place] 7/325 mg 1 tab po q4-6 h; he is also on scheduled Gabapentin and prn Flexeril -and a recent admission to [facility] from 04/28-04/30 for severe lower back [...] Consulted PT/OT. ? 6. H/o HTN - COMPUTATIONAL LINGUIST on Metoprolol 50 mg po BID for [...] planning totake patient home. Stephany Farley MD [phone] (P) Text page (7am to 6pm) Interval [...] hospital, year, though thought he was in [place], [place]. No acute distress. Non-toxic. Respiratory: Clear [...] Farley MD - 05/07/2017 10:00 PM CDT [facility] Date of Service (when I saw the patient): 05/07/2017 Assessment & Plan Speedy Mcduffie is a 76 year old male who was brought in for evaluation of unresponsiveness. ? 1. Altered mental status/Acute toxic encephalopathy Patient found by daughter (Raquel, MECHANIC WELDER TRUCK DRIVER) after likely prolonged period of unresponsiveness and suspected aspiration. Airway was cleared by daughter, but patient was hypoxic in the 60s for what soundslike at least 40 minutes before oxygen was available. Patient responded to narcan and thus it was suspected that patient had an unintentional opioid overdose with worsening of renal function and taking scheduled morphine 15mg ER BID with [place] 7.5/325 1-1.5 tabs PRN q4-6 hours started [...] ?? 2. Suspected Aspiration PNA - Daughter (MECHANIC WELDER TRUCK DRIVER) found patient with large amount of [...] had been managed by his PMD and COMPUTATIONAL LINGUIST was on Morphine 15 mg po BID (daughter reported that in the past he was confused with Oxycontin),??L[place] 7/325 mg 1 tab po q4-6 h; he is also on scheduled Gabapentin and prn Flexeril -and a recent admission to [facility] from 04/28-04/30 for severe lower back [...] more alert. ? 6. H/o HTN - COMPUTATIONAL LINGUIST on Metoprolol 50 mg po BID for HTN. - Holding now with bradycardia. Will follow. - monitor BP ? 7. Dyslipidemia - hold COMPUTATIONAL LINGUIST Atorvastatin while he is npo ? 8 [...] monitoring in ICU overnight. Stephany Farley MD [phone] (P) Text page (7am to 6pm) Interval History Patient given ativan overnight and somnolent when patient's daughter present during day. Patient also noting headache throughout day. Head CT done without any acute findings. [place]ock with minimal improvement. Patient's mentation improved by [...] alone. I ordered gabapentin and low dose [place]bock (home meds). RN concerned about alcohol withdrawal, experiencing hallucinations. CIWA, banana bag and ativan prn ordered for alcohol withdrawal. Stephany Farley MD - 05/06/2017 7:05 PM CDT [facility] Hospitalist Progress Note Date of Service (when I saw the patient): 05/06/2017 Assessment & Plan Speedy Mcduffie is a 76 year old male who was brought in for evaluation of unresponsiveness. ?? 1. Altered mental status/Acute toxic encephalopathy Patient found by daughter (Raquel, MECHANIC WELDER TRUCK DRIVER) after likely prolonged period of unresponsiveness and suspected aspiration. Airway was cleared, but patient was hypoxic in the 60s for what sounds like at least 20-40 minutes before oxygen was available. Patient responded to narcan and thus it was suspected that patient had an unintentional opioid overdose with worsening of renal function and taking scheduled morphine 15mg ER BID with [place] 7.5/325 1-1.5 tabs PRN q4-6 hours started in the past week. Also had been taking gabapentin and flexeril. - Patient started on narcan drip initially and this has since been stopped. - Appreciate concrete laborer recommendations. Had initially planned to transfer to step down this afternoon, but patient having episodes of bradycardia in 40s - 50s, with one strip noting a rate of 29. These seem to happen when patient is sleeping and are sinus in nature. Resource Specialist Teacher agrees with keeping patient in the [...] ?? 2. Suspected Aspiration PNA - Daughter (MECHANIC WELDER TRUCK DRIVER) found patient with large amount of [...] had been managed by his PMD and COMPUTATIONAL LINGUIST was on Morphine 15 mg po BID (daughter reported that in the past he was confused with Oxycontin), [place] 7/325 mg 1 tab po q4-6 h; he is also on scheduled Gabapentin and prn Flexeril -and a recent admission to [facility] from 04/28-04/30 for severe lower back pain when tapering Prednisone was added. On prednisone 10mg daily at time of event with plan for 2 more days 10mg and then 3 days 5mg daily. - Holding meds initially. Avoiding narcotics. Will consult PT when more alert. ?? 6. H/o HTN - COMPUTATIONAL LINGUIST on Metoprolol 50 mg po BID for HTN. - Holding now with episodic bradycardia. Will follow. - monitor BP - Metoprolol iv prn ordered ?? 7. Dyslipidemia - hold COMPUTATIONAL LINGUIST Atorvastatin while he is npo ?? 8 [...] hypoxia. PT consulted. ?? Stephany Farley MD [phone] (P) Text page (7am to 6pm) Interval [...] male found unresponsive, airlifted to [facility] for ongoing treatment of unitnentional overdose [...] in agreement with plan of care Yes [facility] TM 6 Clicks ?? 2016, Trustees of [facility], under license to [employer]. All rights reserved. 6 Clicks Short Forms Basic Mobility Inpatient Short Form [facility]??? 6 Clicks V.2 Basic Mobility Inpatient [...] male found unresponsive, airlifted to [facility] for ongoing treatment of unitnentional overdose [...] in agreement with plan of care Yes [facility] TM 6 Clicks ?? 2016, Trustees of [facility], under license to [employer]. All rights reserved. 6 Clicks Short Forms Basic Mobility Inpatient Short Form [facility]??? 6 Clicks V.2 Basic Mobility Inpatient [...] Total Evaluation Time (Minutes) 10 Marie Zuñiga, AFTERNOON NANNY - 05/06/2017 1:30 PM CDT 05/06/17 0959 [...] aspiration of his vomit. Clinical Swallow Eval: [place] Thick Liquid Texture Trial Mode of Presentation, [place] spoon;self-fed Volume of [place] Presented 3 teaspoons Oral Phase, [place] WFL Pharyngeal Phase, [place] intact Clinical Swallow Eval: Puree Solid Texture [...] Irvin MD - 05/06/2017 9:51 AM CDT [facility] Critical Care Service Progress Note Date of Service: 05/06/2017 Assessment & Plan Speedy Mcduffie is a 76 year old male who was admitted on 05/05/2017 with altered mental status following a possible unintentional narcotic overdose. CHARTER BOAT CAPTAIN: Alert, appropriate, oriented this AM. - Altered [...] FEN/GI: Abdomen benign. - NPO for now. AFTERNOON NANNY evaluation to assess swallow, consider starting diet [...] Today - Stop naloxone infusion. - PT, AFTERNOON NANNY. - Possible transfer from ICU. Interval History [...] Mccullough MD - 05/05/2017 5:34 PM CDT [facility] History and Physical Hospitalist Date of [...] BID, more recently (last week) started on [place] 7.5/325 mg 1 tab po q4-6h prn - he is also on scheduled Gabapentin and Flexeril prn - his daughter- who is a MECHANIC WELDER TRUCK DRIVER does not think that he overdosed [...] 141/81 - discussed with ICU attending; formal concrete laborer consult - continue BiPAP for now- wean [...] had been managed by his PMD and COMPUTATIONAL LINGUIST was on Morphine 15 mg po BID (daughter reported that in the past he was confused with Oxycontin), [place] 7/325 mg 1 tab po q4-6 h; he is also on scheduled Gabapentin and prn Flexeril -and a recent admission to [facility] from 04/28-04/30 for severe lower back pain when tapering Prednisone was added - it seems that he was doing fine at home, walking with walker - now holding all narcotics, Gabapentin, Flexeril - may need to be seen by PT when he will be more awake 6. H/o HTN - COMPUTATIONAL LINGUIST on Metoprolol 50 mg po BID- hold it for now given AMS and isolated low BP - monitor BP - Metoprolol iv prn ordered 7. Dyslipidemia - hold COMPUTATIONAL LINGUIST Atorvastatin while he is npo 8 . 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 History of Present Illness Speedy Mcduffie is [...] time); more recently- he was started on [place] 7/325 mg 1 tab poq4-6 h; he is also on scheduled Gabapentin and prn Flexeril. He was recently admitted to [facility] from 04/28- 04/30/2017 for severe back [...] he was air lifted to [facility]. As per report- he was given [...] vibration. His coordin ation is intact to [id number]. I did not his gait exam. Impression: [...] additional neurological questions. Arpita Nelson MD Document: [id number] REEDER\. Margaret Laguna MD - 05/08/2017 10:11 AM CDT [facility] Palliative Care Consultation Note Patient: Speedy [...] with any urgent needs. Margaret Laguna Pager: [phone] [facility] Inpatient Team Consult pager [phone] (M-F 8-4:30) After-hours Answering Service [phone] Palliative Clinic: [phone] Assessment Speedy Mcduffie is a 76 year old male with lower back pain 2/2 incomplete sacral fracture after a fall managed conservatively with opioids admitted 05/05 for suspected unintentional opioid overdose and aspiration. Course complicated by acute hypoxic respiratory failure, altered mental status, acute on CKD. Symptoms: Pain: didn't tolerate opioids throughout his treatment course (a little over a week COMPUTATIONAL LINGUIST): felt somnolent. He doesn't recall making changes [...] done rapidly if he hasn't taken it COMPUTATIONAL LINGUIST. Lidocaine patches didn't help in the past. Gets good relief with heat and ice, using heating pad now. I feel a trial of low-dose diclofenac with monitoring of his renal function would be a good option at this time. He is already on misoprostol COMPUTATIONAL LINGUIST, which I assume was started with the [...] Care Planning: patient is working on a AI Merchant at home, wants to designate his daughters [...] sleep last night, also received one 5/325 [place] about 90min prior to my visit. ROS: [...] magnesia daily prn, Senna-docusate prn - none COMPUTATIONAL LINGUIST: MS Contine 15mg bid Hydrocodone/APAP 7.5/325 1-1.5 [...] reviewed: crea 1.24 (baseline) Margaret Laguna Pager: [phone] [facility] Inpatient Team Consult pager [phone] (M-F 8-4:30) After-hours Answering Service [phone] Palliative Clinic: [phone] Total time spent was 45 minutes, >50% of time was spent counseling and/or coordination of care regarding symptom assessment, disease understanding. Rolando Burrell MD - 05/07/2017 11:00 AM CDT [facility] Cardiology Consultation Date of Admission: 05/05/2017 [...] HDL, LDL, TRIG, CHOLHDLRATIO in the last 60168 hours. Recent Labs Lab 05/07/17 0450 05/06/1744405/05/17 [...] 9:21 AM CDTAssociated Order(s): CARDIOLOGY IP CONSULT [facility] Cardiology Consultation Date of Admission: 05/05/2017 [...] 3 seconds) 2) Altered Mental Status - Leroy to be due to incidental opioid overdose [...] opioid therapy. He had recent admission to [facility] between 711 and 713 for [...] Sinus Bradycardia Kamari Jones PA-C 05/07/2017 Pager: [phone] Associated attestation - Hue Klein MD - [...] Irvin MD - 05/05/2017 6:24 PM CDT [facility] History and Physical/ Consult Critical Care Service Date of Admission: 05/05/2017 Date of Service: 05/05/17 Assessment & Plan Speedy Mcduffie is a 76 year old male who presents with altered mental status. 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 - NPO for now. : DJEA with Cr 2.4 today. - DEJA: ?CKD [...] was airlifted to the emergency department at [facility]. Naloxone administered during transport improved his mental status transiently. The patient has a recent sacral fracture which has caused some [id number]-au-xeqpjvv pain. Past Medical History I have reviewed [...] NEG Ketones Urine Negative NEG mg/dL Specific Drift Urine 1.020 1.003 - 1.035 Blood Urine [...] daughter is nurse in the ICU at [facility] [employer]. He was not brought to [place] for evaluation because he was initially unresponsive. [...] Remove hardware foot Left lung surgical decortication [place] teeth Family History: History reviewed. No pertinent [...] wave abnormality Abnormal ECG Rate 79 bpm. FL interval 138. QRS duration 76. QT/QTc 376/431. [...] 05/05/2017 EMERGENCY DEPARTMENT Leesa Martinez MD 05/05/17 [id number] documented in this encounter Miscellaneous Notes Provider Notification - Aubrey Morales, RN - 05/12/2017 3:42 PM CDT Paged and spoke to Dr. Pleitez notified pharmacist from [place] pharmacy called with concern with counter indications with the d/c med sent. Acid Polymerization Operator given phone number to Dr. Pleitez, she will contact pharmacy to verify. Phone number [phone] Plan of Care - Nai Santacruz PT - 05/12/2017 3:42 PM CDT Problem: Goal Outcome Summary Goal: Goal Outcome Summary Physical Therapy Discharge Summary Reason for therapy discharge: Discharged to home with home therapy. Progress towards therapy goal(s). See goals on Care Plan in [facility] electronic health record for goal details. [...] goals on Care Plan in [facility] electronic health record for goal details. [...] Goal Outcome Summary Goal: Goal Outcome Summary Photoengraver Apprentice PT Patient plan for discharge: Home with [...] Goal Outcome Summary Goal: Goal Outcome Summary Photoengraver Apprentice PT Patient plan for discharge: None stated [...] PM Plan of Care - Marie Zuñiga, AFTERNOON NANNY - 05/11/2017 10:13 AM CDT Problem: Goal Outcome Summary Goal: Goal Outcome Summary Photoengraver Apprentice AFTERNOON NANNY Patient plan for discharge: Patient would like [...] pt for OT session, pt busy with AFTERNOON NANNY and eating breakfast on 1st attempt, 2nd [...] and then 379cc at 1210 and 476cc [id number]. D/c pending, currently recommending TCU. Nrsg will continue to monitor. Plan of Care - Marie Zuñiga SLP - 05/10/2017 1:50 PM CDT Problem: Goal Outcome Summary Goal: Goal Outcome Summary Photoengraver Apprentice AFTERNOON NANNY Patient plan for discharge: Patient would like [...] declines/aspiration signs are observed. Plan to continue AFTERNOON NANNY swallow Tx For one mores session to [...] Goal Outcome Summary Goal: Goal Outcome Summary Photoengraver Apprentice PT Patient plan for discharge: Pt hopes [...] Goal Outcome Summary Goal: Goal Outcome Summary Photoengraver Apprentice OT Patient plan for discharge: home with [...] Outcome: Improving Altered mental status. PT, OT, AFTERNOON NANNY. A/Ox4, forgetful, acute confusion episodes upon waking [...] Goal Outcome Summary Goal: Goal Outcome Summary Photoengraver Apprentice AFTERNOON NANNY Patient plan for discharge: Did not state [...] declines/aspiration signs are observed. Plan to continue AFTERNOON NANNY swallow Tx short term to insure diet tolerance and train strategies. Barriers to return to prior living situation: Level of assist per OT/PT needs Recommendations for discharge: Per OT/PT needs; No AFTERNOON NANNY needs likely indicated after discharge Rationale for recommendations: Anticipate AFTERNOON NANNY swallow Tx goal to be be met [...] Goal Outcome Summary Goal: Goal Outcome Summary AFTERNOON NANNY: Attempted to see patient at breakfast for [...] Pt had assist with dressing, and IADLs. Photoengraver Apprentice OT Patient plan for discharge: Home with [...] 05/08/2017 11:15 PM CDT Page to MD vacation sales advisor, pt still tachy in high 115-150s - occasionally will drop below 100 but then tachycardia resumes. Given all PRN options. Orders for meds rec'd/updated in DEC. 0030 Bedside RN went togive meds and HR slowed, sustained into 70's long enough to capture strip. Tele strip printed by this telegraphic typewriter mechanic, pt appears to be in a-flutter. Sent to CCU to verify. 0045 Re-page to MD vacation sales advisor regarding underlying rhythm. STAT 12 lead ordered. [...] to hospitalist, PRN Metoprolol ordered and given. Acid Polymerization Operator also instructed to give scheduled BP [...] Goal Outcome Summary Goal: Goal Outcome Summary Photoengraver Apprentice AFTERNOON NANNY Patient plan for discharge: Did not state [...] day without symptoms, bp high apresoline iv [id number] without much improvement. notified at 1300 hospitalist [...] life. Hosptalist ordered to give low dose [place] and stat head CT. Notified primary nurse. Plan of Care - Kassy Chatman SLP - 05/07/2017 2:50 PM CDT Problem: Goal Outcome Summary Goal: Goal Outcome Summary Photoengraver Apprentice AFTERNOON NANNY Patient plan for discharge: Did not state [...] PM Plan of Care - Marie Zuñiga AFTERNOON NANNY - 05/07/2017 9:47 AM CDT Problem: Goal Outcome Summary Goal: Goal Outcome Summary AFTERNOON NANNY: Attempted to see patient for swallow treatment [...] metoprolol per prn order after discussing with concrete laborer. Pt then had periods of tachy/dani. See [...] Goal Outcome Summary Goal: Goal Outcome Summary Photoengraver Apprentice PT PT: Evaluation completed, treatment initiated. 76 [...] Goal Outcome Summary Goal: Goal Outcome Summary Photoengraver Apprentice AFTERNOON NANNY Patient plan for discharge: Undetermined Current status: [...] his respiratory status hold the diet. 3. AFTERNOON NANNY will f/u for diet tolerance on 05/07/17. [...] intermittently to vigorous sternal rub. MD aware, concrete laborer consult. [place] reassess at 2000 for intubation. CV: SR, pressure stable. Pulm: LS coarse, BIPAP. GI/: Abd distended. Adequate clear urine output. Skin: intact Lines: 2 periph iv Plan: plan to reassess arousal level and ABG at 1999 Pharmacy-Admission Medication History - Victoriano Villa RPH - 05/05/2017 4:44 PM CDT Admission medication history interview status for the 05/05/2017 admission is complete. See [facility] admission navigator for prior to admission medications Medication history source reliability:Good Actions taken by pharmacist (provider contacted, etc):None Additional medication history information not noted on COMPUTATIONAL LINGUIST med list : ----Pt unresponsive. Medication bottles [...] with Referral Routine Paroxysmal atrial Expected : Boiler Coverer Helper fibrillation (H) 05/20 (Approximate), Expires: 05/11/2018 Home Care PT Referral for Referral Routine Enceph alopathy Ordered: Hospital Discharge Aspiration pneumonia, 05/12/2017 unspecified aspiration pneumonia type, unspecified laterality, unspecified part of lung (H) Home Care OT Referral for Referral Routine Enceph alopathy Ordered: Hospital Discharge Aspiration pneumonia, 05/12/2017 unspecified aspiration pneumonia type, unspecified laterality, unspecified part of lung (H) Home Care AFTERNOON NANNY Referral for Referral Routine Encep halopathy Ordered: [...] Time Signature Sodium 144 133 - 144 [place] mmol/L [facility] Potassium 4.0 3.4 - 5.3 [place] mmol/L [facility] Chloride 112 (H) 94 - 109 [place] mmol/L [facility] Carbon Dioxide 22 20 - 32 [place] mmol/L [facility] Anion Gap 10 3 - 14 [place] mmol/L [facility] Glucose 111 (H) 70 - 99 [place] mg/dL [facility] Urea Nitrogen 25 7 - 30 [place] mg/dL [facility] Creatinine 1.55 (H) 0.66 - [place] 1.25 mg/dL [facility] GFR Estimate 44 (L) >60 [place] mL/min/1.[address] Comment: Non GFR Calc GFR Estimate If Black 53 (L) >60 mL/min/1.7m2 F [facility] Comment: GFR Calc Calcium 8.1 (L) 8.5 - 10.1 mg/dL [facility] Specimen Anatomical Collection Method Collection Time Receive d Time (Source) Location / / Volume Laterality Blood specimen 05/12/2017 8:52 AM 017 9:02 (specimen) CDT AM CDT Nikhil Rodriguez DO LAB - BLOOD ORDERABLES Performing Organization Address City/State/ZIP Code Phon e Number [facility] [address] [address] [facility] [address] [address], [place] [phone] Hemoglobin A1c (05/11/2017 11:37 AM CDT) athologist Signature Hemoglobin A1C 5.6 4.3 - 6.0 [facility] Specimen Anatomical Collection Method Collection Time Receive d Time (Source) Location / / Volume Laterality Blood specimen 05/11/2017 11:37 7 (specimen) AM CDT 11:57 AM CDT Natasha Jen Counters BUDGET ENGINEER DENTISTRY TEACHER LAB - BLOOD ORDERABLES Performing Organization Address City/State/ZIP Code Phon e Number [facility] [address] [address] [phone] [facility] [address] [address], [place] [phone] Vitamin B12 (05/11/2017 11:37 AM CDT) athologist Signature Vitamin B12 800 193 - 986 [facility] pg/mL [facility] Specimen Anatomical Collection Method Collection Time Receive d Time (Source) Location / / Volume Laterality Blood specimen 05/11/2017 11:37 7 (specimen) AM CDT 11:57 AM CDT Natasha Jen Counters BUDGET ENGINEER DENTISTRY TEACHER LAB - BLOOD ORDERABLES Performing Organization Address City/State/ZIP Code Phon e Number [address] [address] [facility] Vitamin D Deficiency (05/11/2017 11:37 AM CDT) athologist Signature Vitamin D 26 20 - 75 [facility] Deficiency ug/L [place] [facility] Comment: Season, race, dietary intake, and treatm ent affect the concentration of 32-yudofck-Icjwfoo D. Values may decrea se during winter [...] CDT 11:57 AM CDT Natasha Jen Counters BUDGET ENGINEER DENTISTRY TEACHER LAB - BLOOD ORDERABLES Performing Organization Address City/[facility]/ZIP Code Phon e Number [id number] [place] [address] (ABNORMAL) Lipid Profile (05/11/2017 11:37 AM CDT) P athologist Signature Cholesterol 128 <200 mg/dL [facility] Triglycerides 164 (H) <150 mg/dL [facility] Comment: Borderline high: ??150-199 mg/dl High: ? 200-499 mg/dl Very high: ? >499 mg/dl HDL Cholesterol 44 >39 mg/dL [facility] LDL Cholesterol Calculated 51 <100 mg/dL [facility] Comment: Desirable: <100 mg/dl Non HDL Cholesterol 84 <130 mg/dL [facility] Specimen Anatomical Collection Method Collection Time Receive d Time (Source) Location / / Volume Laterality Blood specimen 05/11/2017 11:37 7 (specimen) AM CDT 11:57 AM CDT Natasha Jen Counters BUDGET ENGINEER DENTISTRY TEACHER LAB - BLOOD ORDERABLES Performing Organization Address City/[facility]/ZIP Code Phon e Number [facility] [address] [address] [facility] [address] [address], [place] [phone] Platelet count (05/11/2017 7:17 AM CDT) P athologist Signature Platelet Count 169 150 - 450 [place] 10e9/L [facility] Specimen Anatomical Collection Method Collection Time Receive d Time (Source) Location / / Volume Laterality Blood specimen 05/11/2017 7:17 AM 017 7:30 (specimen) CDT AM CDT Stephany Farley MD LAB - BLOOD ORDERABLES Performing Organization Address City/State/ZIP Code Phon e Number [facility] [address] [place] [address] [facility] [address] [place] [address], [place] [phone] (ABNORMAL) Basic metabolic panel (05/11/2017 7:17 AM CDT) Analysis Performed At Path logist Time Signature Sodium 144 133 - 144 [place] mmol/L [facility] Potassium 3.7 3.4 - 5.3 [place] mmol/L [facility] Chloride 112 (H) 94 - 109 [place] mmol/L [facility] Carbon Dioxide 23 20 - 32 [place] mmol/L [facility] Anion Gap 9 3 - 14 [place] mmol/L [facility] Glucose 94 70 - 99 [place] mg/dL [facility] Urea Nitrogen 25 7 - 30 [place] mg/dL [facility] Creatinine 1.56 (H) 0.66 - [place] 1.25 mg/dL [facility] GFR Estimate 44 (L) >60 [place] mL/min/1.[address] Comment: Non GFR Calc GFR Estimate If Black 53 (L) >60 mL/min/1.7m2 F [facility] Comment: GFR Calc Calcium 8.5 8.5 - 10.1 mg/dL [facility] Specimen Anatomical Collection Method Collection Time Receive d Time (Source) Location / / Volume Laterality Blood specimen 05/11/2017 7:17 AM 017 7:30 (specimen) CDT AM CDT Isra Greene MD LAB - BLOOD ORDERABLES Performing Organization Address City/State/ZIP Code Phon e Number [facility] [address] [place] [address] [facility] [address] [address], [place] [phone] (ABNORMAL) CBC with platelets differential (05/10/2017 7:43 AM CDT) [facility] gist Method Time Signature WBC 7.7 4.0 - [place] 11.[address] RBC Count 3.89 (L) 4.4 - 5.9 [place] 10e12/L [facility] Hemoglobin 12.7 (L) 13.3 - [place] 17.7 g/dL [facility] Hematocrit 37.0 (L) 40.0 - [place] 53.0 % [facility] MCV 95 78 - 100 [place] fl [facility] MCH 32.6 26.5 - [place] 33.0 pg [facility] MCHC 34.3 31.5 - [place] 36.5 g/dL [facility] RDW 13.3 10.0 - [place] 15.0 % [facility] Platelet Count 168 150 - [address] Diff Method Automated [place] Method [facility] % Neutrophils 68.9 % [facility] % Lymphocytes 17.9 % [facility] % Monocytes 9.7 % [facility] % Eosinophils 2.6 % [facility] % Basophils 0.3 % [facility] % Immature 0.6 % [place] Granulocytes [facility] Nucleated RBCs 0 0 /100 [facility] Absolute 5.3 1.6 - 8.3 [place] Neutrophil 109[facility] Absolute 1.4 0.8 - 5.3 [place] Lymphocytes 109[facility] Absolute 0.8 0.0 - 1.3 [place] Monocytes 10e9[facility] Absolute 0.2 0.0 - 0.7 [place] Eosinophils 10e9[facility] Absolute 0.0 0.0 - 0.2 [place] Basophils 109[facility] Abs Immature 0.1 0 - 0.4 [place] Granulocytes [address] [place] [address] Absolute 0.0 [place] Nucleated RBC [facility] Specimen Anatomical Collection Method Collection Time Receive d Time (Source) Location / / Volume Laterality Blood specimen 05/10/2017 7:43 AM 017 8:05 (specimen) CDT AM CDT Isra Greene MD LAB - BLOOD ORDERABLES Performing Organization Address City/State/ZIP Code Phon e Number [facility] [address] [place] [address] [facility] [address] [address], [place] [phone] (ABNORMAL) Basic metabolic panel (05/10/2017 7:43 AM CDT) Analysis Performed At Path logis Time Signature Sodium 144 133 - 144 [place] mmol/L [facility] Potassium 3.5 3.4 - 5.3 [place] mmol/L [facility] Chloride 111 (H) 94 - 109 [place] mmol/L [facility] Carbon Dioxide 23 20 - 32 [place] mmol/L [facility] Anion Gap 10 3 - 14 [place] mmol/L [facility] Glucose 97 70 - 99 [place] mg/dL [facility] Urea Nitrogen 24 7 - 30 [place] mg/dL [facility] Creatinine 1.49 (H) 0.66 - [place] 1.25 mg/dL [facility] GFR Estimate 46 (L) >60 [place] mL/min/1.[address] Comment: Non GFR Calc GFR Estimate If Black 56 (L) >60 mL/min/1.7m2 F [facility] Comment: GFR Calc Calcium 8.6 8.5 - 10.1 mg/dL [facility] Specimen Anatomical Collection Method Collection Time Receive d Time (Source) Location / / Volume Laterality Blood specimen 05/10/2017 7:43 AM 017 8:05 (specimen) CDT AM CDT Isra Greene MD LAB - BLOOD ORDERABLES Performing Organization Address City/State/ZIP Code Phon e Number [facility] [address] [address] [facility] [address] [address], [place] [phone] MR Brain w/o & w Contrast (05/09/2017 [...] with platelets differential (05/09/2017 7:27 AM CDT) [facility] gist Method Time Signature WBC 9.5 4.0 - [place] 11.0 [facility] 10e9/[facility] RBC Count 3.94 (L) 4.4 - 5.9 [place] 10e12/L [facility] Hemoglobin 12.9 (L) 13.3 - [place] 17.7 g/dL [facility] Hematocrit 37.0 (L) 40.0 - [place] 53.0 % [facility] MCV 94 78 - 100 [place] fl [facility] MCH 32.7 26.5 - [facility] 33.0 pg [facility] MCHC 34.9 31.5 - [place] 36.5 g/dL [facility] RDW 13.1 10.0 - [place] 15.0 % [facility] Platelet Count 185 150 - 450 [place] 10e9/L [facility] Diff Method Automated [place] Method [facility] % Neutrophils 74.3 % [facility] % Lymphocytes 13.7 % [facility] % Monocytes 9.3 % [facility] % Eosinophils 2.2 % [facility] % Basophils 0.1 % [facility] % Immature 0.4 % [place] Granulocytes [facility] Nucleated RBCs 0 0 /100 [facility] Absolute 7.1 1.6 - 8.3 [place] Neutrophil 10e9/L [facility] Absolute 1.3 0.8 - 5.3 [place] Lymphocytes 10e9/L [facility] Absolute 0.9 0.0 - 1.3 [place] Monocytes 10e9/L [facility] Absolute 0.2 0.0 - 0.7 [place] Eosinophils 10e9/L [facility] Absolute 0.0 0.0 - 0.2 [place] Basophils 10e9/L [facility] Abs Immature 0.0 0 - 0.4 [place] Granulocytes 10e9/L [facility] Absolute 0.0 [place] Nucleated RBC [facility] Specimen Anatomical Collection Method Collection Time Receive d Time (Source) Location / / Volume Laterality Blood specimen 05/09/2017 7:27 AM 017 7:40 (specimen) CDT AM CDT Stephany Farley MD LAB - BLOOD ORDERABLES Performing Organization Address City/[facility]/ZIP [facility] Phon e Number [facility] [address] [address] [phone] [facility] [address] [address], [place] [phone] (ABNORMAL) Basic metabolic panel (05/09/2017 7:27 AM CDT) Analysis Performed At Patho logist Time Signature Sodium 142 133 - 144 [place] mmol/L [facility] Potassium 3.5 3.4 - 5.3 [place] mmol/L [facility] Chloride 110 (H) 94 - 109 [place] mmol/L [facility] Carbon Dioxide 21 20 - 32 [place] mmol/L [facility] Anion Gap 11 3 - 14 [place] mmol/L [facility] Glucose 105 (H) 70 - 99 [place] mg/dL [facility] Urea Nitrogen 22 7 - 30 [place] mg/dL [facility] Creatinine 1.44 (H) 0.66 - [place] 1.25 mg/dL [facility] GFR Estimate 48 (L) >60 [place] mL/min/1.[address] Comment: Non GFR Calc GFR Estimate If Black 58 (L) >60 mL/min/1.7m2 F [facility] Comment: GFR Calc Calcium 9.1 8.5 - 10.1 mg/dL [facility] Specimen Anatomical Collection Method Collection Time Receive d Time (Source) Location / / Volume Laterality Blood specimen 05/09/2017 7:27 AM 017 7:40 (specimen) CDT AM CDT Stephany Farley MD LAB - BLOOD ORDERABLES Performing Organization Address City/State/ZIP Code Phon e Number [facility] [address] [place] [address] [facility] [address] [place] [address], [place] [phone] EKG 12-lead, tracing only (05/09/2017 12:59 AM CDT) [facility] Method Time Signature Interpretation ECG Click View RADIOLOGY Image link RESULTS to view waveform and result Specimen (Source) Anatomical Collection Method Collection Time Re ceived Time Location / / Volume Laterality 05/09/2017 12:59 AM CDT Mickey Smith MD ECG ORDERABLES Performing Organization Address City/State/ZIP Code Phon e Number RADIOLOGY RESULTS EKG 12-lead, tracing only (05/08/2017 9:00 PM CDT) [facility] Method Time Signature Interpretation ECG Click [...] Signature Lactic Acid 1.3 0.7 - 2.1 [place] mmol/L [facility] Specimen Anatomical Collection Method Collection Time Receive d Time (Source) Location / / Volume Laterality Blood specimen 05/08/2017 8:45 PM 017 8:58 (specimen) CDT PM CDT Stephany Farley MD LAB - BLOOD ORDERABLES Performing Organization Address City/State/ZIP Code Phon e Number [facility] [address] [place] [address] [facility] [address] [place] [address], [place] [phone] (ABNORMAL) N-terminal Pro BNP Inpatient (AM Draw) (05/08/2017 5:00 AM CDT) Analysis Performed At Patho logist Time Signature N-Terminal Pro 2,947 (H) 0 - 900 [place] BNP Inpatient pg/mL [facility] Comment: Reference range shown and [...] Code Phon e Number [facility] [address] [address] [facility] [address] [place] [address], U [phone] (ABNORMAL) CBC with platelets differential (05/08/2017 5:00 AM CDT) [facility] Method Time Signature WBC 12.7 (H) 4.0 - [place] 11.0 [facility] 10e9/L [facility] RBC Count 4.00 (L) 4.4 - 5.9 [place] 10e12/L [facility] Hemoglobin 13.0 (L) 13.3 - [place] 17.7 g/dL [facility] Hematocrit 38.3 (L) 40.0 - [place] 53.0 % [facility] MCV 96 78 - 100 [place] fl [facility] MCH 32.5 26.5 - [place] 33.0 pg [facility] MCHC 33.9 31.5 - [place] 36.5 g/dL [facility] RDW 13.1 10.0 - [place] 15.0 % [facility] Platelet Count 162 150 - 450 [place] 10e9/L [facility] Diff Method Automated [place] Method [facility] % Neutrophils 82.5 % [facility] % Lymphocytes 8.9 % [facility] % Monocytes 6.9 % [facility] % Eosinophils 1.2 % [facility] % Basophils 0.1 % [facility] % Immature 0.4 % [place] Granulocytes [facility] Nucleated RBCs 0 0 /100 [facility] Absolute 10.5 (H) 1.6 - 8.3 [place] Neutrophil 10e9/L [facility] Absolute 1.1 0.8 - 5.3 [place] Lymphocytes 10e9/L [facility] Absolute 0.9 0.0 - 1.3 [place] Monocytes 10e9/L [facility] Absolute 0.2 0.0 - 0.7 [place] Eosinophils 10e9/L [facility] Absolute 0.0 0.0 - 0.2 [place] Basophils 10e9/L [facility] Abs Immature 0.1 0 - 0.4 [place] Granulocytes 10e9/L [facility] Absolute 0.0 [place] Nucleated RBC [facility] Specimen Anatomical Collection Method Collection Time Receive d Time (Source) Location / / Volume Laterality Blood specimen 05/08/2017 5:00 AM 017 5:06 (specimen) CDT AM CDT Stephany Farley MD LAB - BLOOD ORDERABLES Performing Organization Address City/State/ZIP Code Phon e Number [facility] [address] [address] [phone] [facility] [address] [address], [facility] [phone] (ABNORMAL) Basic metabolic panel (05/08/2017 5:00 AM CDT) athologist Signature Sodium 140 133 - 144 [place] mmol/L [facility] Potassium 4.1 3.4 - 5.3 [place] mmol/L [facility] Chloride 109 94 - 109 [place] mmol/L [facility] Carbon Dioxide 20 20 - 32 [place] mmol/L [facility] Anion Gap 11 3 - 14 [place] mmol/L [facility] Glucose 106 (H) 70 - 99 [place] mg/dL [facility] Urea Nitrogen 19 7 - 30 [place] mg/dL [facility] Creatinine 1.24 0.66 - [place] 1.25 mg/dL [facility] GFR Estimate 57 (L) >60 [place] mL/min/1.[address] Comment: Non GFR Calc GFR Estimate If Black 69 >60 mL/min/1.7m2 F [facility] Comment: GFR Calc Calcium 8.8 8.5 - 10.1 mg/dL [facility] Specimen Anatomical Collection Method Collection Time Receive d Time (Source) Location / / Volume Laterality Blood specimen 05/08/2017 5:00 AM 017 5:06 (specimen) CDT AM CDT Stephany Farley MD LAB - BLOOD ORDERABLES Performing Organization Address City/State/ZIP Code Phon e Number [facility] [address] [address] [facility] [address] [address], U [phone] CT Head w/o Contrast (05/07/2017 5:04 PM [...] 7 4:25 CDT PM CDT Miladys [facility] POCT Performing Organization Address City/State/ZIP Code Phon e Number [facility] POINT OF CARE TEST, GLUCOSE POINT OF CARE TEST, GLUCOSE ECHO COMPLETE WITH OPTISON (05/07/2017 11:36 AM CDT) Anatomical Region Laterality Modality Echocardiography Specimen (Source) Anatomical Collection Method Collection Time Re ceived Time Location / / Volume Laterality 05/07/2017 10:53 AM CDT Narrative 05/07/2017 1:17 PM T [id number] [facility]73 [id number]^RUSTY^KAMARI^ [facility] Echocardiography Laboratory [address] [place] [address], [place] [address] Name: SPEEDY MCDUFFIE : 1940 Study Date: 05/07/2017 10:53 AM Age: 76 yrs Gender: Male Patient Location: [facility] Reason For Study: Afib Ordering Physician: [...] note might be different from the original. [id number]^RUSTY^KAMARI^ [facility] Echocardiography Laboratory [address] [place] [id number] Name: SPEEDY MCDUFFIE : 1940 Study Date: 05/07/2017 10:53 AM Age: 76 yrs Gender: Male Patient Location: [facility] Reason For Study: Afib Ordering Physician: [...] Signature Bilirubin Direct 0.2 0.0 - 0.2 [place] mg/dL [facility] Bilirubin Total 0.5 0.2 - 1.3 [place] mg/dL [facility] Albumin 2.6 (L) 3.4 - 5.0 [place] g/dL [facility] Protein Total 6.2 (L) 6.8 - 8.8 [place] g/dL [facility] Alkaline 156 (H) 40 - 150 [place] Phosphatase U/L [facility] ALT 34 0 - 70 U/L [facility] AST 46 (H) 0 - 45 U/L [facility] Specimen Anatomical Collection Method Collection Time Receive d Time (Source) Location / / Volume Laterality Blood specimen 05/07/2017 4:50 AM 017 4:55 (specimen) CDT AM CDT Stephany Farley MD LAB - BLOOD ORDERABLES Performing Organization Address City/State/ZIP Code Phon e Number [facility] [address] [address] [phone] [facility] [address] [address], [place] [phone] (ABNORMAL) Basic metabolic panel (05/07/2017 4:50 AM CDT) Analysis Performed At Patho logist Time Signature Sodium 143 133 - 144 [place] mmol/L [facility] Potassium 4.8 3.4 - 5.3 [place] mmol/L [facility] Chloride 114 (H) 94 - 109 [place] mmol/L [facility] Carbon Dioxide 20 20 - 32 [place] mmol/L [facility] Anion Gap 9 3 - 14 [place] mmol/L [facility] Glucose 130 (H) 70 - 99 [place] mg/dL [facility] Urea Nitrogen 25 7 - 30 [place] mg/dL [facility] Creatinine 1.52 (H) 0.66 - [place] 1.25 mg/dL [facility] GFR Estimate 45 (L) >60 [place] mL/min/1.[address] Comment: Non GFR Calc GFR Estimate If Black 54 (L) >60 mL/min/1.7m2 F [facility] Comment: GFR Calc Calcium 8.8 8.5 - 10.1 mg/dL [facility] Specimen Anatomical Collection Method Collection Time Receive d Time (Source) Location / / Volume Laterality Blood specimen 05/07/2017 4:50 AM 017 4:55 (specimen) CDT AM CDT Stephany Farley MD LAB - BLOOD ORDERABLES Performing Organization Address City/State/ZIP Code Phon e Number [facility] [address] [address] [phone] [facility] [address] [address], [facility] [phone] Magnesium (05/07/2017 4:50 AM CDT) P athologist Signature Magnesium 2.3 1.6 - 2.3 [place] mg/dL [facility] Specimen Anatomical Collection Method Collection Time Receive d Time (Source) Location / / Volume Laterality Blood specimen 05/07/2017 4:50 AM 017 4:55 (specimen) CDT AM CDT Stephany Farley MD LAB - BLOOD ORDERABLES Performing Organization Address City/State/ZIP Code Phon e Number [facility] [address] [place], [place] [address] [facility] [address] [place] [address], [place] [phone] Phosphorus (05/07/2017 4:50 AM CDT) P athologist Signature Phosphorus 3.3 2.5 - 4.5 [place] mg/dL [facility] Specimen Anatomical Collection Method Collection Time Receive d Time (Source) Location / / Volume Laterality Blood specimen 05/07/2017 4:50 AM 017 4:55 (specimen) CDT AM CDT Stephany Farley MD LAB - BLOOD ORDERABLES Performing Organization Address City/State/ZIP Code Phon e Number [facility] [address] [place] [address] [facility] [address] [place] [address], [place] [phone] (ABNORMAL) CBC with platelets differential (05/07/2017 4:50 AM CDT) Component Value Ref Test Analysis Performed At [facility] Range Method Time Signature WBC 11.9 (H) 4.0 - [place] 11.0 [facility] 10e9/L [facility] RBC Count 3.79 (L) 4.4 - [place] 5.9 [facility] 10e12/L [facility] Hemoglobin 12.5 (L) 13.3 - [place] 17.7 [facility] g/dL [facility] Hematocrit 37.5 (L) 40.0 - [place] 53.0 % [facility] MCV 99 78 - 100 [facility] MCH 33.0 26.5 - [place] 33.0 pg [facility] MCHC 33.3 31.5 - [place] 36.5 [facility] g/dL [facility] RDW 13.5 10.0 - [place] 15.0 % [facility] Platelet Count 150 150 - [place] 450 [facility] 10e9/L [facility] Diff Method Manual [place] Differential [facility] % Neutrophils 92.0 % [facility] % Lymphocytes 3.0 % [facility] % Monocytes 5.0 % [facility] % Eosinophils 0.0 % [facility] % Basophils 0.0 % [facility] Absolute 10.9 (H) 1.6 - [place] Neutrophil 8.3 [facility] 10e9/L [facility] Absolute 0.4 (L) 0.8 - [place] Lymphocytes 5.3 [facility] 10e9/L [facility] Absolute 0.6 0.0 - [place] Monocytes 1.3 [facility] 10e9/L [facility] Absolute 0.0 0.0 - [place] Eosinophils 0.7 [facility] 10e9/L [facility] Absolute 0.0 0.0 - [place] Basophils 0.2 [facility] [address] RBC Morphology Normal [facility] Platelet Confirming [place] Estimate automated cell [facility] Specimen Anatomical Collection Method Collection Time Receive d Time (Source) Location / / Volume Laterality Blood specimen 05/07/2017 4:50 AM 017 4:55 (specimen) CDT AM CDT Stephany Farley MD LAB - BLOOD ORDERABLES Performing Organization Address City/State/ZIP Code Phon e Number [facility] [address] [address] [facility] [address] [address], [place] [phone] Calcium (05/06/2017 5:18 PM CDT) P athologist Signature Calcium 8.6 8.5 - 10.1 [place] mg/dL [facility] Specimen Anatomical Collection Method Collection Time Receive d Time (Source) Location / / Volume Laterality Blood specimen 05/06/2017 5:18 PM 017 5:23 (specimen) CDT PM CDT Jaswinder oGins MD LAB - BLOOD ORDERABLES Performing Organization Address City/State/ZIP Code Phon e Number [facility] [address] [address] [facility] [address] [address], [place] [phone] Magnesium (1200) (05/06/2017 5:18 PM CDT) P athologist Signature Magnesium 1.9 1.6 - 2.3 [place] mg/dL [facility] Specimen Anatomical Collection Method Collection Time Receive d Time (Source) Location / / Volume Laterality Blood specimen 05/06/2017 5:18 PM 017 5:23 (specimen) CDT PM CDT Jaswinder Goins MD LAB - BLOOD ORDERABLES Performing Organization Address City/State/ZIP Code Phon e Number [facility] [address] [place] [address] [phone] [facility] [address] [place] [address], [place] [phone] EKG 12-lead, tracing only (05/06/2017 5:08 PM CDT) Patholo gist Method Time Signature Interpretation ECG Click View RADIOLOGY Image link RESULTS to view waveform and result Specimen (Source) Anatomical Collection Method Collection Time Re ceived Time Location / / Volume Laterality 05/06/2017 5:08 PM CDT Jaswinder Goins MD ECG ORDERABLES Performing Organization Address City/[facility]/ZIP Code Phon e Number RADIOLOGY RESULTS (ABNORMAL) CBC with platelets (05/06/2017 4:45 AM CDT) Analysis Performed At Patho logist Time Signature WBC 14.4 (H) 4.0 - 11.0 [place] 10e9/L [facility] RBC Count 3.85 (L) 4.4 - 5.9 [place] 10e12/L [facility] Hemoglobin 12.5 (L) 13.3 - [place] 17.7 g/dL [facility] Hematocrit 38.3 (L) 40.0 - [place] 53.0 % [facility] MCV 100 78 - 100 [place] fl [facility] MCH 32.5 26.5 - [place] 33.0 pg [facility] MCHC 32.6 31.5 - [place] 36.5 g/dL [facility] RDW 13.3 10.0 - [place] 15.0 % [facility] Platelet Count 135 (L) 150 - 450 [place] 10e9/L [facility] Specimen Anatomical Collection Method Collection Time Receive d Time (Source) Location / / Volume Laterality Blood specimen 05/06/2017 4:45 AM 017 4:54 (specimen) CDT AM CDT Miladys Mccullough MD LAB - BLOOD ORDERABLES Performing Organization Address City/[facility]/ZIP Code Phon e Number [facility] [address] [place] [address] [facility] [address] [place] [address], [place] [phone] (ABNORMAL) Hepatic panel (05/06/2017 4:45 AM CDT) Analysis Performed At Patho logist Time Signature Bilirubin Direct 0.2 0.0 - 0.2 [place] mg/dL [facility] Bilirubin Total 0.6 0.2 - 1.3 [place] mg/dL [facility] Albumin 2.6 (L) 3.4 - 5.0 [place] g/dL [facility] Protein Total 6.0 (L) 6.8 - 8.8 [place] g/dL [facility] Alkaline 144 40 - 150 [place] Phosphatase U/L [facility] ALT 33 0 - 70 U/L [facility] AST 57 (H) 0 - 45 U/L [facility] Specimen Anatomical Collection Method Collection Time Receive d Time (Source) Location / / Volume Laterality Blood specimen 05/06/2017 4:45 AM 017 4:54 (specimen) CDT AM CDT Miladys Mccullough MD LAB - BLOOD ORDERABLES Performing Organization Address City/State/ZIP Code Phon e Number [facility] [address] [place] [address] [phone] [facility] [address] [place] [address], [place] [phone] (ABNORMAL) Basic metabolic panel (05/06/2017 4:45 AM CDT) Analysis Performed At Patho logist Time Signature Sodium 143 133 - 144 [place] mmol/L [facility] Potassium 4.5 3.4 - 5.3 [place] mmol/L [facility] Chloride 115 (H) 94 - 109 [place] mmol/L [facility] Carbon Dioxide 20 20 - 32 [place] mmol/L [facility] Anion Gap 8 3 - 14 [place] mmol/L [facility] Glucose 129 (H) 70 - 99 [place] mg/dL [facility] Urea Nitrogen 39 (H) 7 - 30 [place] mg/dL [facility] Creatinine 1.79 (H) 0.66 - [place] 1.25 mg/dL [facility] GFR Estimate 37 (L) >60 [place] mL/min/1.[address] Comment: Non GFR Calc GFR Estimate If Black 45 (L) >60 mL/min/1.7m2 F [facility] Comment: GFR Calc Calcium 7.8 (L) 8.5 - 10.1 mg/dL [facility] Specimen Anatomical Collection Method Collection Time Receive d Time (Source) Location / / Volume Laterality Blood specimen 05/06/2017 4:45 AM 017 4:54 (specimen) CDT AM CDT Miladys Mccullough MD LAB - BLOOD ORDERABLES Performing Organization Address City/State/ZIP Code Phon e Number [facility] [address] [address] [facility] [address] [address], [facility] [phone] (ABNORMAL) Glucose by meter (05/06/2017 4:17 AM [...] Time Signature Sodium 144 133 - 144 [place] mmol/L [facility] Potassium 5.0 3.4 - 5.3 [place] mmol/L [facility] Chloride 113 (H) 94 - 109 [place] mmol/L [facility] Carbon Dioxide 21 20 - 32 [place] mmol/L [facility] Anion Gap 10 3 - 14 [place] mmol/L [facility] Glucose 148 (H) 70 - 99 [place] mg/dL [facility] Urea Nitrogen 46 (H) 7 - 30 [place] mg/dL [facility] Creatinine 1.95 (H) 0.66 - [place] 1.25 mg/dL [facility] GFR Estimate 34 (L) >60 [place] mL/min/1.[address] Comment: Non GFR Calc GFR Estimate If Black 41 (L) >60 mL/min/1.7m2 F [facility] Comment: GFR Calc Calcium 7.8 (L) 8.5 - 10.1 mg/dL [facility] Specimen Anatomical Collection Method Collection Time Receive d Time (Source) Location / / Volume Laterality Blood specimen 05/05/2017 10:35 7 (specimen) PM CDT 10:46 PM CDT Miladys Mccullough MD LAB - BLOOD ORDERABLES Performing Organization Address City/State/ZIP Code Phon e Number [facility] [address] [address] [facility] [address] [address], [place] [phone] (ABNORMAL) Blood gas arterial with oxyhemoglobin (1200) (05/05/2017 8:20 PM CDT) Patholo gist Method Time Signature pH Arterial 7.23 (L) 7.35 - [place] 7.45 pH [facility] pCO2 Arterial 45 35 - 45 [place] mm Hg [facility] pO2 Arterial 159 (H) 80 - 105 [place] mm Hg [facility] Bicarbonate 19 (L) 21 - 28 [place] Arterial mmol/L [facility] FIO2 BIPAP [place] 60 [facility] Oxyhemoglobin 99 92 - 100 [place] Arterial % [facility] Base Deficit Art 8.2 mmol/L [facility] Comment: Reference range: -9.0 to 1.8 Specimen Anatomical Collection Method Collection Time Receive d Time (Source) Location / / Volume Laterality Blood specimen 05/05/2017 8:20 PM 017 8:25 (specimen) CDT PM CDT Aubrey Irvin MD LAB - BLOOD ORDERABLES Performing Organization Address City/State/ZIP Code Phon e Number [facility] [address] [place] [address] [facility] [address] [place] [address], [facility] [phone] (ABNORMAL) Glucose by meter (05/05/2017 8:06 PM [...] PM CDT Miladys Mccullough MD LAB - [facility] POCT Performing Organization Address City/State/ZIP Code Phon [...] negative amphetamine is 500 ng/mL or less. [facility] Barbiturates Qual Negative NEG [facility] Urine Cutoff for a negative barbiturate is 200 ng/mL or less. [facility] Benzodiazepine Negative NEG [facility] Qual Urine Cutoff for a negative benzodiazepine is 200 ng/mL or less . [facility] Cannabinoids Qual Negative NEG [facility] Urine Cutoff for a negative cannabinoid is 50 ng/mL or less. [facility] Cocaine Qual Negative NEG [facility] Urine Cutoff for a negative cocaine is 300 ng/mL or less. [facility] Opiates Positive NEG [facility] Qualitative Urine Cutoff for a positive opiat e is greater than 300 ng/mL. This is an unconfirmed [facility] screening result to be used for medical purposes only. HOSPITAL (A) PCP Qual Urine Negative NEG [facility] Cutoff for a negative PCP is 25 ng/mL or less. [facility] Specimen Anatomical Collection Method Collection Time Receive d Time (Source) Location / / Volume Laterality 05/05/2017 5:20 PM 7 7:11 CDT PM CDT Miladys Mccullough MD LAB - URINE ORDERABLES Performing Organization Address City/State/ZIP Code Phon e Number [facility] [address] [place] [address] [facility] [address] [place] [address], [place] [phone] (ABNORMAL) Urine Microscopic (05/05/2017 5:20 PM CDT) [facility] Vaultize Method Time Signature WBC Urine O - 2 0 - 2 [place] /HPF [facility] RBC Urine O - 2 0 - 2 [place] /HPF [facility] Cast Urine 2-5 0 - 2 [place] HYALINE /LPF [facility] Bacteria Urine Few (A) NEG /HPF [facility] Mucous Urine Present (A) NEG /LPF [facility] Specimen Anatomical Collection Method Collection Time Receive d Time (Source) Location / / Volume Laterality 05/05/2017 5:20 PM 7 5:29 CDT PM CDT Miladys Mccullough MD LAB - URINE ORDERABLES Performing Organization Address City/State/ZIP Code Phon e Number [facility] [address] [place], [place] [address] (ABNORMAL) UA reflex to Microscopic and Culture (05/05/2017 5:20 PM CDT) Component Value Ref Test Analysis Performed At [facility] Vault[facility] Range Method Time Signature Color Urine Yellow [facility] Appearance Urine Clear [facility] Glucose Urine Negative NEG [place] mg/dL [facility] Bilirubin Urine Negative NEG [facility] Ketones Urine Negative NEG [place] mg/dL [facility] Specific Drift 1.020 1.003 - [place] Urine 1.035 [facility] Blood Urine Negative NEG [facility] pH Urine 5.5 5.0 - [place] 7.0 [facility] [place] Protein Albumin 30 (A) NEG [place] Urine mg/dL [facility] Urobilinogen 0.2 0.2 - [place] Urine 1.0 [facility] EU/dL [place] Nitrite Urine Negative NEG [facility] [place] Leukocyte Negative NEG [place] Esterase Urine [facility] [place] Source Catheterized [place] Urine [facility] [place] Specimen Anatomical Collection Method Collection Time Receive d Time (Source) Location / / Volume Laterality 05/05/2017 5:20 PM 7 5:29 CDT PM CDT Miladys Mccullough MD LAB - URINE ORDERABLES Performing Organization Address City/[facility]/ZIP Code Phon e Number [facility] [place] [address] [place] [address] Blood culture (05/05/2017 4:30 PM CDT) [facility] gist Method Time Signature Specimen Blood Left [facility] Special Aerobic and [place]OR Requests anaerobic [facility] bottles [place] received Culture Micro No [...] MICRO GENERAL ORDERABL ES Performing Organization Address City/[facility]/ZIP [facility] Phon e Number INFECTIOUS DISEASES [address] [place] [address] DIAGNOSTIC LABORATORY, [address] [address] [address] [place] [address], [facility] [phone] [place] INFECTIOUS DISEASE [address] [place] [address], [facility] DIAGNOSTIC LABORATORY Lactic acid whole blood (05/05/2017 3:50 PM CDT) P athologist Signature Lactic Acid 1.5 0.7 - 2.1 [place] mmol/L [facility] Specimen Anatomical Collection Method Collection Time Receive d Time (Source) Location / / Volume Laterality 05/05/2017 3:50 PM 7 4:06 CDT PM CDT Leesa Martinez MD LAB - BLOOD ORDERABLES Performing Organization Address City/State/ZIP Code Phon e Number [facility] [address] [address] [phone] [facility] [address] [address], [facility] [phone] Blood culture (05/05/2017 3:45 PM CDT) [facility] gist Method Time Signature Specimen Blood Left [facility] Special Aerobic and [place]OR Requests anaerobic [facility] bottles [place] received Culture Micro No [...] Code Phon e Number INFECTIOUS DISEASES [address] [place] [address] DIAGNOSTIC LABORATORY, [address] [address], [facility] [address] [address], [facility] [place] INFECTIOUS DISEASE [address] [place], [place] [address] DIAGNOSTIC LABORATORY Chest XR, 1 view [...] Signature pH Arterial 7.22 (L) 7.35 - TAY[place]OR 7.45 pH [facility] pCO2 Arterial 48 (H) 35 - 45 [place] mm Hg [facility] pO2 Arterial 112 (H) 80 - 105 [place] mm Hg [facility] Bicarbonate 20 (L) 21 - 28 [place] Arterial mmol/L [facility] Oxyhemoglobin 97 92 - 100 [place] Arterial % [facility] Base Deficit Art 7.5 mmol/L [facility] Comment: Reference range: -9.0 to 1.8 Specimen Anatomical Collection Method Collection Time Receive d Time (Source) Location / / Volume Laterality Blood specimen 05/05/2017 3:33 PM 017 3:54 (specimen) CDT PM CDT Leesa Martinez MD LAB - BLOOD ORDERABLES Performing Organization Address City/State/ZIP Code Phon e Number [facility] [address] [address] [facility] [address] [address], U [phone] Troponin POCT (05/05/2017 3:29 PM CDT) P [...] LAB - BEAKER POCT Performing Organization Address [facility] Phon e Number FV POINT OF CARE TEST, HANDHELD METER POINT OF CARE TEST, HANDHELD METER EKG 12 lead (05/05/2017 3:24 PM CDT) [facility] gist Method Time Signature Interpretation ECG Click View RADIOLOGY Image link RESULTS to view waveform and result Specimen (Source) Anatomical Collection Method Collection Time Re ceived Time Location / / Volume Laterality 05/05/2017 3:24 PM CDT Leesa Martinez MD ECG ORDERABLES Performing Organization Address City/[facility]/ZIP Code Phon e Number RADIOLOGY RESULTS (ABNORMAL) Glucose by meter (05/05/2017 3:23 PM CDT) P athologist Signature Glucose 116 (H) 70 - 99 POINT OF CARE mg/dL TEST, GLUCOSE Specimen Anatomical Collection Method Collection Time Receive d Time (Source) Location / / Volume Laterality 05/05/2017 3:23 PM 7 3:25 CDT PM CDT Provider Unknown LAB - BEAKER POCT Performing Organization Address City/[facility]/ZIP Code Phon e Number FV POINT OF CARE TEST, GLUCOSE POINT OF CARE TEST, GLUCOSE (ABNORMAL) CK total (05/05/2017 3:20 PM CDT) P athologist Signature CK Total 325 (H) 30 - 300 [place] U/L [facility] Specimen Anatomical Collection Method Collection Time Receive d Time (Source) Location / / Volume Laterality 05/05/2017 3:20 PM 7 3:31 CDT PM CDT Leesa Martinez MD LAB - BLOOD ORDERABLES Performing Organization Address City/State/ZIP Code Phon e Number [facility] [address] [place] [address] [phone] [facility] [address] [place] [address], [place] [phone] Alcohol ethyl (05/05/2017 3:20 PM CDT) P athologist Signature Ethanol g/dL <0.01 <0.01 g/dL [facility] Specimen Anatomical Collection Method Collection Time Receive d Time (Source) Location / / Volume Laterality 05/05/2017 3:20 PM 7 3:31 CDT PM CDT Leesa Martinez MD LAB - BLOOD ORDERABLES Performing Organization Address City/State/ZIP Code Phon e Number [facility] [address] [place] [address] [phone] [facility] [address] [place] [address], [place] [phone] Salicylate level (05/05/2017 3:20 PM CDT) [facility] gist Method Time Signature Salicylate <2 mg/dL [facility] Therapeutic: ?<20 [facility] [place] Anti inflammatory: ??15-30 [facility] Specimen Anatomical Collection Method Collection Time Receive d Time (Source) Location / / Volume Laterality Blood specimen 05/05/2017 3:20 PM 017 3:31 (specimen) CDT PM CDT Leesa Martinez MD LAB - BLOOD ORDERABLES Performing Organization Address City/State/ZIP Code Phon e Number [facility] [address] [place] [address] [facility] [address] [place] [address], [place] [phone] Acetaminophen level (05/05/2017 3:20 PM CDT) Component Value Ref Test Analysis Performed At Patholo gist Range Method Time Signature Acetaminophen <2 mg/L [facility] Level Therapeutic range: 10-20 mg/L [facility] Specimen Anatomical Collection Method Collection Time Receive d Time (Source) Location / / Volume Laterality Blood specimen 05/05/2017 3:20 PM 017 3:31 (specimen) CDT PM CDT Leesa Martinez MD LAB - BLOOD ORDERABLES Performing Organization Address City/State/ZIP Code Phon e Number [facility] [address] [place] [address] [phone] [facility] [address] [place] [address], [place] [phone] (ABNORMAL) Comprehensive metabolic panel (05/05/2017 3:20 PM CDT) Analysis Performed At [facility] logist Time Signature Sodium 141 133 - 144 [place] mmol/L [facility] Potassium 4.4 3.4 - 5.3 [place] mmol/L [facility] Chloride 107 94 - 109 [place] mmol/L [facility] Carbon Dioxide 23 20 - 32 [place] mmol/L [facility] Anion Gap 11 3 - 14 [place] mmol/L [facility] Glucose 126 (H) 70 - 99 [place] mg/dL [facility] Urea Nitrogen 48 (H) 7 - 30 [place] mg/dL [facility] Creatinine 2.41 (H) 0.66 - [place] 1.25 mg/dL [facility] GFR Estimate 26 (L) >60 [place] mL/min/1.[address] Comment: Non GFR Calc GFR Estimate If Black 32 (L) >60 mL/min/1.7m2 F [facility] Comment: GFR Calc Calcium 8.6 8.5 - 10.1 mg/dL [facility] Bilirubin Total 0.5 0.2 - 1.3 mg/dL [facility] Albumin 3.3 (L) 3.4 - 5.0 g/dL [facility] Protein Total 6.9 6.8 - 8.8 g/dL [facility] Alkaline Phosphatase 166 (H) 40 - 150 U/L [facility] ALT 29 0 - 70 U/L [facility] AST 22 0 - 45 U/L [facility] Specimen Anatomical Collection Method Collection Time Receive d Time (Source) Location / / Volume Laterality Blood specimen 05/05/2017 3:20 PM 017 3:31 (specimen) CDT PM CDT Leesa Martinez MD LAB - BLOOD ORDERABLES Performing Organization Address City/State/ZIP Code Phon e Number [facility] [address] [address] [facility] [address] [address], [place] [phone] (ABNORMAL) CBC with platelets differential (05/05/2017 3:20 PM CDT) [facility] gist Method Time Signature WBC 17.7 (H) 4.0 - [place] 11.0 [facility] 10e9/L [facility] RBC Count 4.32 (L) 4.4 - 5.9 [place] 10e12/L [facility] Hemoglobin 14.3 13.3 - [place] 17.7 g/dL [facility] Hematocrit 42.9 40.0 - [place] 53.0 % [facility] MCV 99 78 - 100 [facility] MCH 33.1 (H) 26.5 - [place] 33.0 pg [facility] MCHC 33.3 31.5 - [place] 36.5 g/dL [facility] RDW 13.0 10.0 - [place] 15.0 % [facility] Platelet Count 170 150 - 450 [place] 10e9/L [facility] Diff Method Automated [facility] % Neutrophils 83.6 % [facility] % Lymphocytes 9.3 % [facility] % Monocytes 6.0 % [facility] % Eosinophils 0.7 % [facility] % Basophils 0.1 % [facility] % Immature 0.3 % [place] Granulocytes [facility] Nucleated RBCs 0 0 /100 [facility] Absolute 14.8 (H) 1.6 - 8.3 [place] Neutrophil 10e9/L [facility] Absolute 1.7 0.8 - 5.3 [place] Lymphocytes 10e9/L [facility] Absolute 1.1 0.0 - 1.3 [place] Monocytes 10e9/L [facility] Absolute 0.1 0.0 - 0.7 [place] Eosinophils 10e9/L [facility] Absolute 0.0 0.0 - 0.2 [place] Basophils 10e9/L [facility] Abs Immature 0.1 0 - 0.4 [place] Granulocytes 10e9/L [facility] Absolute 0.0 [place] Nucleated RBC [facility] Specimen Anatomical Collection Method Collection Time Receive d Time (Source) Location / / Volume Laterality Blood specimen 05/05/2017 3:20 PM 017 3:31 (specimen) CDT PM CDT Leesa Martinez MD LAB - BLOOD ORDERABLES Performing Organization Address City/State/ZIP Code Phon e Number [facility] [address] [address] [phone] [facility] [address] [address], [facility] [phone] documented in this encounter Visit Diagnoses Diagnosis [...] foil and gently remove. Place on to [facility] immediately. Administration with liquid unnecessary oxyCODONE [...] mg 0825 (Given - Provider: Aubrey Morales RN)9821 (Given - Provider: Rosette Reese RN)9210 (Given - Provider: Rosette Reese RN) 0921 (Given - Provider: Aubrey Morales RN)1627 (Given - Provider: Joaquina Acosta RN)2214 (Given - Provider: Joaquina Acosta RN) 0914 [...] Irritant.
documented in this encounter Care Teams Health And Social Care Teacher Relationship Specialty Start Date End Date Eduardo Coleyit PCP - General Family Practice 05/05/17 05/11/[address] [address] [facility] [place] P[facility] - General 05/12/17 [address] [place] [address] documented as of this encounter
--- OUTSIDE RECORDS SUMMARY | 2022-07-17 13:57 | XMS_ITS | Encounter Summary ---
:1940 Author Organization [facility] Address [address] [place] [address] Care Team Providers Name Role Phone Primary Dr, Unknown Primary Care Provider Unavailable Encounter Details Date Type Department Care Team Description 11/29/2014 - Hospital Encounter [facility] Hang Mcclure phoebe stenosis, lumbar region, without neurogenic claudication; 12/01/2014 [facility] MD Koki AAA (abdominal aortic aneurysm) (H); [place] [facility] Diabetes mellitus (H); [address] [facility] ORTHOPEDICS Hypertension; Drive [address] BPH (benign prostatic hyperp lasia); [place], [place] [address] HLD (hyperlipidemia); [phone] [place], [place] Hyperglycemia, drug-induced; [phone] [id number] MRSA (methicillin resistant staph aureus ) [...] 90.7 kg (200 lb) 11/29/2014 9:33 AM BOTTOM CRANE OPERATOR Height 180.3 cm (5' 11) 11/29/2014 9:33 AM BOTTOM CRANE OPERATOR Body Mass Index 27.89 11/29/2014 9:33 AM BOTTOM CRANE OPERATOR documented in this encounter Discharge Summaries [...] the office in about 2 weeks. Call [phone] if patient needs to schedule appointment. Dimas Hale PA-C Date: 12/01/2014 Time: 7:49 AM OM CRANE OPERATOR documented in this encounter Medications at [...] 0 05/05/2017 daily. Extended release (every 24hrs) HYDROcodone-acetaminophen Take 1 tablet by 30 tablet 0 09/1805/05/2017 5-325 MG per mouth every 6 hours tabletIndications: as needed for pain. Aftercare following surgery of the musculoskeletal system, NEC HYDROcodone-acetaminophen Take 1 tablet by 30 tablet 0 09/1805/05/2017 5-325 MG per mouth every 6 hours tabletIndications: as needed for pain. Ingrowing nail, Pain in limb sulfamethoxazole-trimethop Take 1 tablet by 20 tablet 0 05/05/2017 rim (BACTRIM DS,SEPTRA DS) mouth 2 times 800-160 MG per daily. tabletIndications: Ingrowing nail, Pain in limb documented as of this encounter Progress Notes [...] CULTURE - Final result (09/22/2012 3:43 PM BOTTOM CRANE OPERATOR) [facility] Records Component Value Range SOURCE [...] Fowler MD Date: 12/01/2014 Time: 2:00 PM [facility] OM CRANE OPERATOR Dimas Hale - 12/01/2014 7:25 AM [...] Low Dias - 11/30/2014 2:35 PM CST COLLISION TECHNICIAN TREATMENT NOTE Name: Speedy Hendricks : 1940 Acupuncture Treatment Patient Type: Orthopedic Intervention Reason: Urinary Retention Patient complaint:: Unable to void Acupunture (Points):: [place] 3, 4, 6, St [address] Risks and benefits discussed. Low Ramirez L.Ac. Date: 11/30/2014 Time: 2:36 PM OM CRANE OPERATOR Marcelino Finch MD - 11/30/2014 8:13 AM CST [facility] Medicine Service Progress Note Assessment/Plan: [...] Radiology Radiology Results: personally reviewed the impression OM CRANE OPERATOR Radha Grey - 11/29/2014 5:01 PM CST Acute Pain Management Team Consulting provider: Dr. Mcclure/Dr. Finch POD#:0 Procedure: LEFT L2-3, L3-4 POSTERIOR FUSION AND L3-4 REVISION DECOMPRESSION Home pain regimen: Opioid status: Tolerant [place] 7.5/325 mg-1 tabs q 4 -6 h prn-pt reports taking no more than 6 /day Oxycodone 2.5-5 mg po q 4 h prn_juse recent Rx due to increased nerve pain L leg Arthrotec 75 mg po bid prn Current pain regimen: Will change standard regiment of oxycodone scheduled and oxycodone prn to [place] 7.5/325 and prn oxycodone. Dilaudid IV bumps [...] tolerant , especially whenviewing Rx history of [place] 7.5/325, but he and family report him not taking more than 6 tablets perday of [place] 7.5/325, and have new Rx for oxycodone, but reports only taking 2.5 mg dose at a time. He is very sedated now, and will start out conservatively, not knowing exactly how much [place] he was taking at home. Pt and family reported he is very sensitive to oxycodone, but does well on [place]. Assessment/Plan: [place] 7.3/325 1- tablet every 4 hours Oxycodone -2.5 -5 mg po q 4 h prn BTP Discussed with Dr. Finch Will follow pt Radha Grey RPh 11/29/2014 5:02 PM OM CRANE OPERATOR Marcelino iFnch MD - 11/29/2014 4:45 PM CST [facility] Medicine Service Progress Note Assessment/Plan: [...] Radiology Radiology Results: personally reviewed the impression OM CRANE OPERATOR Saman Bernard - 11/29/2014 10:38 AM CST [facility](s) Hopes: Pt hopes to have his leg pain stop after surgery. Needs: Pt needs support of family. Resources: pt has his spouse and several family members in the room with him as resources and support. Additional Notes: pt joked with this gyn about Gaines's Day and Saint Yonatan's Day; to thischaplain, having a sense of humor is an additional resource for this patient. Prayer declined, visitonly. Follow up: None planned. Spiritual care upon request. OM CRANE OPERATOR documented in this encounter H&P Notes Hang Mcclure - 11/29/2014 10:46 AM CST The patient's history has been reviewed and there are no pertinent changes OM CRANE OPERATOR documented in this encounter Miscellaneous Notes [...] was seen in the preop area of [facility] today. Low back was marked [...] two 60 mm rods. The system was [employer] TSRH 3DX. We decorticated the facet joints [...] the instrumentation. All instrumentation was tightened to shore hand dredge or barge's specifications. We then closed the deep fascia [...] used during this case [employer] TSRH 3DX OM CRANE OPERATOR documented in this encounter Plan of Treatment Not on filedocumented as of this encounter Procedures Procedure Name Priority Date/Time Associated Diagnosis Comme nts CROSSMATCH RED CELLS Routine 12/02/2014 10:40 Res ults for this AM BOTTOM CRANE OPERATOR procedure are i n the results section. CROSSMATCH RED CELLS Routine 12/02/2014 10:40 Res ults for this AM BOTTOM CRANE OPERATOR procedure are i n the results section. XR LUMBAR SPINE PORT Routine 11/29/2014 1:38 Spinal stenosis, Results for this 2/3 VIEWS PM BOTTOM CRANE OPERATOR lumbar region, procedure are in without neurogenic the resul ts claudication section. XR SURGERY CHRIS FLUORO Routine 11/29/2014 1:37 Spinal stenosis , Results for this GREATER THAN 5 MIN PM BOTTOM CRANE OPERATOR lumbar region, procedu re are in without neurogenic the resul ts claudication section. RED CELL ANTIGEN Routine 11/29/2014 10:17 Results for this TYPING NON ABO AM BOTTOM CRANE OPERATOR procedure are in the results section. ANTIBODY Routine 11/29/2014 10:17 Results for this IDENTIFICATION AM BOTTOM CRANE OPERATOR procedure are in the results section. EKG CARDIAC - HIM SCAN 11/29/2014 documented in this encounter Results Crossmatch red cells (12/02/2014 10:40 AM BOTTOM CRANE OPERATOR) [facility] Method Time Signature Crossmatch COMPATIBLE 12/02/2014 BLOOD BANK 10:40 AM BOTTOM CRANE OPERATOR Unit ABO/RH O Pos 12/02/2014 BLOOD BANK 10:40 AM BOTTOM CRANE OPERATOR Unit Number [id number] 12/02/2014 BLOOD BANK 10:40 AM BOTTOM CRANE OPERATOR Status Released 12/02/2014 BLOOD BANK 10:40 AM BOTTOM CRANE OPERATOR Component Red Blood 12/02/2014 BLOOD BANK Cells 10:40 AM BOTTOM CRANE OPERATOR Product Code [id number] 12/02/2014 BLOOD BANK 10:40 AM BOTTOM CRANE OPERATOR Specimen (Source) Anatomical Location Collection Method / Collectio n Time Received Time / Laterality Volume Hang Mcclure MD LAB - BLOOD BANK PRODUCT ORD ER Performing Organization Address [facility] Phon e Number [facility] BLOOD BANK [address] [place] [address] BLOOD [address] [place] [address] [place] [address] Crossmatch red cells (12/02/2014 10:40 AM BOTTOM CRANE OPERATOR) [facility] gist Method Time Signature Crossmatch COMPATIBLE 12/02/2014 BLOOD BANK 10:40 AM BOTTOM CRANE OPERATOR Unit ABO/RH O Pos 12/02/2014 BLOOD BANK 10:40 AM BOTTOM CRANE OPERATOR Unit Number [id number] 12/02/2014 BLOOD BANK 10:40 AM BOTTOM CRANE OPERATOR Status Released 12/02/2014 BLOOD BANK 10:40 AM BOTTOM CRANE OPERATOR Component Red Blood 12/02/2014 BLOOD BANK Cells 10:40 AM BOTTOM CRANE OPERATOR Product Code [id number] 12/02/2014 BLOOD BANK 10:40 AM BOTTOM CRANE OPERATOR Specimen (Source) Anatomical Location Collection Method / Collectio n Time Received Time / Laterality Volume Hang Mcclure MD LAB - BLOOD BANK PRODUCT ORD ER Performing Organization Address [facility] Phon e Number [facility] BLOOD BANK [address] [place] [address] BLOOD [address] [place] [address] [place] [address] XR Lumbar Spine Port 2/3 Views (11/29/2014 1:38 PM BOTTOM CRANE OPERATOR) Anatomical Region Laterality Modality Spine Other Specimen (Source) Anatomical Location Collection Method / Collectio n Time Received Time / Laterality Volume Narrative 11/29/2014 1:51 PM BOTTOM CRANE OPERATOR XR LUMBAR SPINE 2 OR 3 [...] Fluoro G/T 5 Min (11/29/2014 1:37 PM BOTTOM CRANE OPERATOR) Anatomical Region Laterality Modality Abdomen/Pelvis Other Specimen (Source) Anatomical Location Collection Method / Collectio n Time Received Time / Laterality Volume Narrative 11/29/2014 1:37 PM BOTTOM CRANE OPERATOR Please see the Radiology Report for result for body part of interest. Procedure Note David Girard - 03/23/2021Formatt ing of this note might be different from the original. Please see the Radiology Report for resu lt for body part of interest. Hang Mcclure MD IMG DIAGNOSTIC IMAGING ORDER [place] Antibody identification (11/29/2014 10:17 AM BOTTOM CRANE OPERATOR) Patholo gist Method Time Signature Antibody > 3hr for 11/29/2014 BLOOD BANK Identification more 1:34 PM BOTTOM CRANE OPERATOR blood;[place] Specimen Anatomical Collection Method / Collection Time Recei fany Time (Source) Location / Volume Laterality Blood specimen Venipuncture / 11/29/2014 10:17 015 1:34 (specimen) Unknown AM BOTTOM CRANE OPERATOR PM BOTTOM CRANE OPERATOR Hang Mcclure MD LAB - BLOOD BANK TEST ORDER Performing Organization Address City/State/ZIP Code Phon e Number [facility] BLOOD BANK [address] [place] [address] BLOOD BANK [address] [place] [address] Red Cell Antigen Typing Non ABO: (11/29/2014 10:17 AM BOTTOM CRANE OPERATOR) P athologist Signature K Antigen Type Negative 11/29/2014 BLOOD BANK 1:16 PM BOTTOM CRANE OPERATOR Specimen Anatomical Collection Method / Collection Time Recei fany Time (Source) Location / Volume Laterality Blood specimen Venipuncture / 11/29/2014 10:17 015 1:16 (specimen) Unknown AM BOTTOM CRANE OPERATOR PM BOTTOM CRANE OPERATOR Narrative [facility] BLOOD BANK - 11/29/2014 1:16 PM BOTTOM CRANE OPERATOR K Antigen Hang Mcclure MD LAB - BLOOD BANK TEST ORDER Performing Organization Address City/State/ZIP Code Phon e Number [facility] BLOOD BANK [address] [place] [address] BLOOD BANK [address] [place] [address] EKG CARDIAC - HIM SCAN (11/29/2014) Specimen (Source) Anatomical Location Collection Method / Collectio n Time Received Time / Laterality Volume Narrative This result has an attachment that is no t available. Historical Provider ECG ORDERABLES documented in this encounter Visit Diagnoses Diagnosis Spinal stenosis, lumbar region, without neurogenic claudication AAA (abdominal aortic aneurysm) Abdominal aneurysm without [...] aureus documented in this encounter Care Teams [employer]lass Autobody Repairer Relationship Specialty Start Date End Date Primary DrDipak MD PCP - General 09/21/1204/18 documented as of this encounter
--- OUTSIDE RECORDS SUMMARY | 2022-07-17 13:57 | XMS_ITS | Encounter Summary ---
:1940 Author Organization [place] Address [address] [place] [address] Care Team Providers Name Role Phone Primary Dr, Unknown Primary Care Provider Unavailable Reason for Visit Reason Onset Date Comments Referral 10/16/2016 [facility] Encounter Details Date Type Department Care Team Description 10/16/2016 Telephone [facility] Jon White Referral ([facility]) [facility] [address] [place] [address] [phone] [place], [place] [phone] (Wo rk) Social History Tobacco Use Types [...] get Valium before procedure and will have taxi cab driver with him. MOHS at 10 45 am. CARRIER ASSISTANT Telephone Encounter - Aruna Rodriguez - 10/16/2016 3:11 PM CST Pt returned RN (Lisa) phone call. Please call again Thursday10/17/16. CARRIER ASSISTANT Telephone Encounter - Lisa Diaz RN - 10/16/2016 11:11 AM CST Received fax from central lab pathology from [facility] for pt with BCC on nose. Pt has appt at 10 45 pm on for second opinion on skin cancer and questions. Left message for pt to clarify whether heis planning to come in for MOHS appt or just regular appt. CARRIER ASSISTANT documented in this encounter Plan of Treatment Not on filedocumented as of this encounter Visit Diagnoses Not on filedocumented in this encounter Care Teams Watch Technician Relationship Specialty Start Date End Date Primary Dipak Kasper MD PCP - General 09/21/1204/18 documented as of this encounter
--- OUTSIDE RECORDS SUMMARY | 2022-07-17 13:57 | XMS_ITS | Encounter Summary ---
:1940 Author Organization [place] Address [address] [place] [address] Care Team Providers Name Role Phone Primary DrDipak MD Primary Care Provider Unavailable Celina Coley Primary Care Provider [facility] [place] Primary Care Provider [phone] Jon White MD Unavailable [phone] Ramiro Loco MD Unavailable Encounter Details Date Type Department Care Team Description 04/18/2014 [facility] Provider, [facility] Information Management [address] [facility] [address] [place] [address] Social History Tobacco Use Types Packs/Day Years [...] documented as of this encounter Care Teams Exhibition Specialist Relationship Specialty Start Date End Date Primary Dipak Kasper MD PCP - General 09/21/1204/18 Celina Coley PCP - General Family Practice 05/05/17 05/11/[address] [address] Kehinde Portillo PCP - General 05/12/[address] [address] Jon White Assigned Surgical Provider 08/10/20 12/08/20 MD Aubrey [address] [place] [address] Ramiro Loco MD Assigned Heart and 08/10/20 05/11/21 [address] Vascular Provider [place] [address] documented as of this encounter
--- OUTSIDE RECORDS SUMMARY | 2022-07-17 13:57 | XMS_ITS | Encounter Summary ---
:1940 Author Organization [place] Address [address] [place] [address] Care Team Providers Name Role Phone Primary Dr, Dipak WELSH Primary Care Provider Unavailable Reason for Visit Reason Comments Derm Problem MOHS Encounter Details Date Type Department Care Team Description 11/06/2016 Office Visit [facility] Jon White Basal cell carcinoma of nose (Primary Dx); Clinic [place] MD Aubrey [place]; [place] [address] (seborrheic keratosis); [address] [address] [place], [place] [phone] [address] (Work) [phone] Social History Tobacco Use Types Packs/Day Years [...] Comments Blood Pressure 203/105 11/06/2016 10:05 AM AIRCRAFT SKIN BURNISHER Pulse 64 11/06/2016 10:05 AM AIRCRAFT SKIN BURNISHER Temperature - - Respiratory Rate - - Oxygen Saturation 96% 11/06/2016 10:05 AM AIRCRAFT SKIN BURNISHER Inhaled Oxygen Concentration - - Weight - - Height - - Body Mass Index - - documented in this encounter Patient Instructions Patient InstructionsLillian Aj CMA - 11/06/2016 10:52 AM CST Sutured Wound Care [facility]: [phone] [facility]: [phone] ? No strenuous activity for 48 hours. [...] occurs. In case of emergency phone:Dr White [phone] RAFT SKIN BURNISHER documented in this encounter Progress Notes Jon [...] ??? Ent surgery tonsils ??? Appendectomy ??? [place] teeth[ ??? Remove hardware foot 09/30/2012 Procedure: [...] will return in one week forwound evaluation. RAFT SKIN BURNISHER documented in this encounter Nursing Notes Farzana Harris CMA - 11/06/2016 10:52 AM CST Surgical Office Location: [facility] [address] [place] [address] RAFT SKIN BURNISHER Lillian Aj CMA - 11/06/2016 10:06 AM CST Initial BP 203/105 mmHg Pulse 64 SpO2 96% Estimated body mass index is 32.10 kg/(m^2) as calculated from the following: Height as of 10/22/12: 1.702 m (5' 7). Weight as of 10/22/12: 92.987 kg (205 lb). . RAFT SKIN BURNISHER documented in this encounter Plan of Treatment Not on filedocumented as of this encounter Procedures Procedure Name Priority Date/Time Associated Diagnosis Comme nts HC MOHS Routine 11/06/2016 10:51 AM Basal cell carcinoma of HEAD/NCK/HND/FT/GEN AIRCRAFT SKIN BURNISHER nose 1ST STAGE UP T0 5 BLOCKS HC ADJ TISSUE XFER Routine 11/06/2016 10:51 AM Basal cell carc inoma of LID/NOS/EAR/LIP AIRCRAFT SKIN BURNISHER nose 10.1-30 CM documented in this encounter Visit Diagnoses Diagnosis Basal cell carcinoma of nose - Primary Basal cell carcinoma of skin of other an d unspecified parts of face [place] Other dyschromia SK (seborrheic keratosis) Other seborrheic keratosis Angi[place] Hemangioma of unspecified site documented in this encounter Care Teams Sunglass Clip Attacher Relationship Specialty Start Date End Date Primary Dipak Kasper MD PCP - General 09/21/1204/18 documented as of this encounter
--- OUTSIDE RECORDS SUMMARY | 2022-07-17 13:57 | XMS_ITS | Encounter Summary ---
:1940 Author Organization [facility] Address [address] [place] [address] Care Team Providers Name Role Phone Primary Dr, Unknown MD Primary Care Provider Unavailable Reason for Visit Reason Comments Dressing Change Encounter Details Date Type Department Care Team Description 11/18/2016 Allied Health/Nurse [facility] Clinic Dressing Change Visit [place] [phone] Social History Tobacco Use Types Packs/Day [...] healed. IN CASE OF EMERGENCY: Dr White [phone] If you were seen in [place] call: [phone] If you were seen in [place] call: [phone] TIONS ENGINEER documented in this encounter Progress Notes Lillian [...] needed. Patient verbalized understanding. .Marva Aj CMA TIONS ENGINEER documented in this encounter Plan of Treatment Not on filedocumented as of this encounter Visit Diagnoses Diagnosis Encounter for change or removal of surgi hannah wound dressing - Primary documented in this encounter Care Teams Senior Firewall Engineer Relationship Specialty Start Date End Date Primary Dipak Kasper, PCP - General 09/21/1204/18 documented as of this encounter
--- OUTSIDE RECORDS SUMMARY | 2022-07-17 13:57 | XMS_ITS | Encounter Summary ---
:1940 Author Organization [place] Address [address] [place] [address] Care Team Providers Name Role Phone Primary DrDipak MD Primary Care Provider Unavailable Celina Coley Primary Care Provider [facility] [place] Primary Care Provider [phone] Jon White MD Unavailable [phone] Ramiro Loco MD Unavailable Gallito Gonzalez MD Unavailable Encounter Details Date Type Department Care Team Description 05/02/2014 Records - [facility] Cheryl Enriquez RN [address] [address] Social History Tobacco Use Types [...] weeks for routine followup. Isra Fregoso M.D. [facility] Mattie Urrutia - 05/04/2014 3:42 PM [...] - 05/07/2014 12:18 PM CDT Confirmed with [facility] acceptance of pt for PT and OT. Notified pt of [facility] PT and OT acceptance and informed pt and daughter agency will be contacting pt on Thursday, 05/08, to schedule appointment. MARIELA Dillon, [facility] Clinical Social Work Collection Systems Modeler Luciano León - 05/07/2014 11:25 AM CDT [facility] Daily Progress Note Assessment/Plan: 1. Hypertension. [...] resolved, no tenderness or swelling. Isra Fregoso [facility] Date: 05/07/2014 Time: 10:42 AM Historical Provider - 05/06/2014 1:16 PM CDT [facility] met with pt re home health care services. Pt requested [facility] for PT and OT. [facility] contacted [facility] at [phone] making referral to this agency. Fax no is [phone]. [facility] will follow pt to discharge. Rita Urbina, DISASTER RECOVERY ANALYST, [facility] Clinical Social Work Care Managedr Low Ramirez - 05/06/2014 12:12 PM CDT SLUNK SKIN CURER TREATMENT NOTE Name: Speedy Hendricks : 1940 Acupuncture Treatment Patient Type: Orthopedic Intervention Reason: Pain Pre-session Pain ratin Post-session Pain ratin Patient complaint:: (R) foot pain Acupunture (Points):: Du 20, Yin watts, (R) Gb 20, (R) St 34, 36, (R) Sp 8, (R) Si 4 Low Ramirez L.Ac. Date: 05/06/2014 Time: 12:12 PM Luciano León - 05/06/2014 11:44 AM CDT [facility] Daily Progress Note Assessment/Plan: 1. Hypertension. [...] to weight bear, equivocal SLR. Isra Fregoso [facility] Date: 05/06/2014 Time: 11:15 AM Lexie [...] Thank you for the consult. Eri Bah [facility] 05/05/2014 4:46 PM Ca Plunkett - 05/05/2014 3:50 PM CDT SLUNK SKIN CURER TREATMENT NOTE Name: Speedy Hendricks : 1940 [...] León S - 05/04/2014 2:20 PM CDT [facility] Daily Progress Note Assessment/Plan: 1. Hypertension. [...] Care Management should needs arise. Cedric Borrego, DISASTER RECOVERY ANALYST, DIVERSIONAL THERAPIST'S ASSISTANT Lety Dickerson RN - 05/04/2014 12:00 PM [...] Luciano León - 05/03/2014 12:31 PM CDT [facility] Daily Progress Note Assessment/Plan: 1. Hypertension. [...] swab prior to antibiotic . Per J. Grundy/ClFern RN documented in this encounter H&P Notes [...] Revision L4 laminotomy. SURGEON: Dr. Tin Mcclure. DYE MACHINE OPERATOR: Mahesh Rodgers PA-C, who was needed for [...] seen in the preop area of [facility] today, 05/03/2014. The low back was [...] the next 6 weeks. HANG MCCLURE MD [facility] D 05/03/2014 09:21:55 T 05/03/2014 12:31:48 R 05/03/2014 12:31:48 [id number] cc:LUCIANO GUERRA MD documented in this encounter [...] are negative for DVT. Luciano León MD [facility] ORDERABLES XR Foot Port Right 3 [...] evidence for acute fracture. Luciano León MD [facility]NO[facility]IC [facility]AG[facility] ORDER [place] XR Ankle Port [...] changes in cervical spine. Misha Weaver MD [facility] ORDER [place] XR Lumbar Spine [...] level of L4 pedicle. Hang Mcclure MD [facility] ORDER [place] XR Surgery CHRIS [...] as of this encounter Care Teams Laborer Stores Relationship Specialty Start Date End Date Primary DrDipak MD PCP - General 09/21/1204/18 Celina Coley PCP - General Family Practice 05/05/17 05/11/[address] [address] Kehinde Portillo PCP - General 05/12/[address] [address] Jon White Assigned Surgical Provider 08/10/20 12/08/20 MD Aubrey [address] [place] [address] Ramiro Loco MD Assigned Heart and 08/10/20 05/11/21 [address] Vascular Provider [place] [address] Gallito Gonzalez, Assigned Heart and 09/29/21 MD Vascular Provider [address] [place] [address] documented as of this encounter
--- OUTSIDE RECORDS SUMMARY | 2022-07-17 13:57 | XMS_ITS | Encounter Summary ---
:1940 Author Organization [place] Address [address] [place] [address] Care Team Providers Name Role Phone Primary DrDipak MD Primary Care Provider Unavailable Celina Coley Primary Care Provider [facility] [place] Primary Care Provider [phone] Jon White MD Unavailable [phone] Ramiro Loco MD Unavailable Encounter Details Date Type Department Care Team Description 05/02/2014 Anesthesia - [facility] Zoltan Arizmendi MD [address] [place] [address] [phone] Social History Tobacco Use Types Packs/Day [...] documented as of this encounter Care Teams Gameplay Engineer Relationship Specialty Start Date End Date Primary Dipak Kasper MD PCP - General 09/21/1204/18 Celina Coley PCP - General Family Practice 05/05/17 05/11/[address] [address] Kehinde Portillo PCP - General 05/12/[address] [address] Jon White Assigned Surgical Provider 08/10/20 12/08/20 MD Aubrey [address] [place] [address] Ramiro Loco MD Assigned Heart and 08/10/20 05/11/21 [address] [place] [address] Vascular Provider [place] [address] documented as of this encounter
--- OUTSIDE RECORDS SUMMARY | 2022-07-17 13:57 | XMS_ITS | Encounter Summary ---
:1940 Author Organization [facility] Address [address] [place] [address] Care Team Providers Name Role Phone Celina Coley Primary Care Provider Reason for Visit Auth/Cert Specialty Diagnoses / Procedures Referred By Contact Refer red To Contact Intensive Care Diagnoses Opioid overdose, accidental or unintentional, initial encounter (H) Aspiration pneumonia, unspecified aspiration pneumonia type, unspecified laterality, unspecified part of lung (H) Unresponsiveness Intensive Care [address] [place] [address] Phone: Referral ID Status Reason Start Date Expiration Date Visits Requ ested Visits Authorized [id number] 1 1 Encounter Details Date Type Department Care Team Description 05/06/[address] [facility] FLOUR WORKER INSTRUCTIONAL MATERIALS DIRECTOR [address] [place] [address] ANES [phone] [place] [address] (Wo rk) Anesthesia Record Procedure Summary Procedure Name Responsible Anesthesiologist Anesthesia Start Ti me Anesthesia Stop Time IV START 05/06/17212005/06/172140 Events Date Time Event Comment 05/06/20172120 An Start 2140 Quick Note Diagnosis: Venou s Insufficiency Procedure: IV Start Ordering Yadirai an: Dr Rodriguez Location:[facility] ICU 357 2141 An Stop Electronically s [...] RN Darby, Timo thy J, (difficulty standing, FLOUR WORKER FOOD SERVICE ASSOCIATE alerted mental status) Peripheral IV 05/06/17; 2135; 20 G; 05/06/17 2135 by 05/08/17 0300 by Right; Lower forearm; Albino Benavidez APRN Graa lum, Scott, RN Alcohol; Injectable; INSTRUCTIONAL MATERIALS DIRECTOR Tolerated well Peripheral IV 05/06/17; 2140; 20 G; 05/06/17 2140 by 05/08/17 1619 by Right; Upper forearm; Albino Benavidez APRN With am Rosette Alcohol; Injectable; INSTRUCTIONAL MATERIALS DIRECTOR JOSE Clifton Tolerated well documented in this [...] on filedocumented in this encounter Care Teams Wire Weaver Relationship Specialty Start Date End Date Celina Coley PCP - General Family Practice 05/05/17 05/11/[address] [address] documented as of this encounter
--- OUTSIDE RECORDS SUMMARY | 2022-07-17 13:57 | XMS_ITS | Encounter Summary ---
:1940 Author Organization [place] Address [address] [place] [address] Care Team Providers Name Role Phone Primary Dr, Dipak WELSH Primary Care Provider Unavailable Celina Coley Primary Care Provider [facility] Primary Care Provider [phone] Jon White MD Unavailable [phone] Ramiro Loco MD Unavailable Gallito Gonzalez [...] documented as of this encounter Care Teams Compliance Analyst Relationship Specialty Start Date End Date Primary Dr, Dipak, PCP - General 09/21/1204/18 Celina Coley PCP - General Family Practice 05/05/17 05/11/[address] [address] [facility] P[facility] - General 05/12/[address] [address] Jon White Assigned Surgical Provider 08/10/20 12/08/20 MD Aubrey [address] [place] [address] Ramiro Loco MD Assigned Heart and 08/10/20 05/11/21 [address] Vascular Provider [place] [address] Gallito Gonzalez, Assigned Heart and 09/29/21 Vascular Provider [address] [place] [address] documented as of this encounter
--- OUTSIDE RECORDS SUMMARY | 2022-07-17 13:57 | XMS_ITS | Encounter Summary ---
:1940 Author Organization [place] Address [address] [place] [address] Care Team Providers Name Role Phone Primary Dr, Unknown MD Primary Care Provider Unavailable Reason for Visit Reason Comments Back Pain Leg Pain Encounter Details Date Type Department Care Team Description [facility] [address] [place] [address] Acute low back pain 04/30/2017 Encounter [facility] Dilshad John MD [address] [place] [address] due to trauma [address] Provider, Historical [address] [place] [phone] Social History Tobacco Use Types Packs/Day Years [...] John MD - 04/30/2017 2:09 PM CDT [facility] MEDICINE DISCHARGE SUMMARY Primary Care Physician: Kannan [...] COURSE: Nondisplaced insufficiency type sacral fractures - [facility], patient of Dr Mcclure and his injury was described to him -no surgery inidcated - IV dilaudid. He also does ok with oral oxycodone and [place] - taper off IV opioids and optimize [...] MULTIVITAMIN Tab Dose: 1 tablet Generic drug: multivitamin,tf-twle-ewspxqbx 1 tablet, Oral, DAILY desonide 0.05 % [...] in 2-3 weeks or as needed at [facility]. Call our scheduling line at [phone] to make an appointment if you do [...] Comments Follow-up in: Within [facility] follow-up [facility] [...] EMR for more detailed significant labs, imaging, client experience consultant notes etc. Total time spent on [...] Ca Plunkett - 04/30/2017 12:19 PM CDT BAKERY SUPERVISOR TREATMENT NOTE Name: Speedy Hendricks : 1940 [...] much better. Daughter will transport. TANJA Rodríguez SUPERVISOR RECORD PRESS 04/30/2017 Rae aCmpo PA-C - 04/29/2017 4:26 PM CDT Orthopedic [...] Plans: Nondisplaced insufficiency type sacral fractures - [facility] consult, patient of Dr Mcclure and his injury was described to him -no surgery inidcated - IV dilaudid. He also does ok with oral oxycodone and [place] - taper off IV opioids and optimize [...] Lumbar Spine Without Contrast Result Date: 04/29/2017 [facility] MR LUMBAR SPINE WO CONTRAST 04/28/2017 [...] right neural foraminal stenosis. Dilshad John MD [facility] Hospitalist Jeanette Santana, [facility] - 04/28/2017 8:59 AM CDT Pharmacy Note - Admission Medication History Pertinent Provider Information: n/a Prior To Admission (BRUSH MACHINE SETTER) med list completed and updated in EMR. BRUSH MACHINE SETTER Med List Medication Sig Note Last Dose [...] day. 04/27/2017 at just started 04/27 ??? multivitamin,tx-mvfh-mabmapzn (COMPLETE MULTIVITAMIN) Tab Take 1 tablet by mouth daily. Past Week at Unknown time ??? pramipexole (MIRAPEX) 0.5 MG tablet Take 0.5 mg by mouth at bedtime. 04/26/2017 ??? terazosin (HYTRIN) 5 MG capsule Take 5 mg by mouth at bedtime. 04/26/2017 ??? [DISCONTINUED] acetaminophen (TYLENOL ARTHRITIS PAIN) 650 MG CR tablet Take by mouth. 04/28/2017:[facility] Received Sig: Takes 1 tablet as needed. ??? [DISCONTINUED] atorvastatin (LIPITOR) 40 MG tablet Take 40 mg by mouth. 04/28/2017: Received from: [facility] Received Sig: Take 1 tablet by mouth once daily. ??? [DISCONTINUED] desonide (DESOWEN) 0.05 % lotion Apply topically. 04/28/2017: Received from: [facility] Received Sig: Apply topically to affected area(s) 2 timesdaily. ??? [DISCONTINUED] diclofenac (VOLTAREN) 75 MG EC tablet Take 75 mg by mouth. 04/28/2017: Received from: [facility] Received Sig: Take 1 tablet by mouth 2 times daily with meals. ??? [DISCONTINUED] diflorasone (PSORCON) 0.05 % ointment Apply topically. 04/28/2017: Received from: [facility] Received Sig: Apply topically to affected area(s) once daily. ??? [DISCONTINUED] gabapentin (NEURONTIN) 300 MG capsule Start 1 pill QHS, increase up to TID prn 04/28/2017: Received from: [facility] ??? [DISCONTINUED] HYDROcodone-acetaminophen (NORCO) 7.5-325 mg per tablet Take 1 tablet by mouth. 04/28/2017: Received from: [facility] Received Sig: Take 1 tabletby mouth every 4 hours if needed for Pain May take 1.5 every 4 hours for severe pain ??? [DISCONTINUED] metoprolol tartrate (LOPRESSOR) 50 MG tablet Take 50 mg by mouth. 04/28/2017: Received from: [facility] Received Sig: Take 1 tablet by mouth 2 times daily. ??? [DISCONTINUED] miSOPROStol (CYTOTEC) 200 MCG tablet Take 200 mcg by mouth. 04/28/2017: Received from: [facility] Received Sig: Take 1 tablet by mouth 2 times daily with meals. ??? [DISCONTINUED] morphine (MS CONTIN) 15 MG 12 hr tablet Take 15 mg by mouth. 04/28/2017: Received from: [facility] Received Sig: Take 1 tablet by mouth 2 times daily ??? [DISCONTINUED] multivitamin (ONE A DAY) per tablet Take by mouth. 04/28/2017: Received from: [facility] Received Sig: take 1 tablet by oral route once daily with food ??? [DISCONTINUED] pramipexole (MIRAPEX) 0.5 MG tablet Take 0.5 mg by mouth. 04/28/2017: [facility] Received Sig: Take 1 tablet by mouth at bedtime. ??? [DISCONTINUED] terazosin (HYTRIN) 5 MG capsule Take 5 mg by mouth. 04/28/2017: [facility] Received Sig: Take 1 capsule by mouth at bedtime. Information source(s): Patient Summary of Changes to BRUSH MACHINE SETTER Med List New: dulcolax, calcium +d Discontinued: none Changed: diclofenac to qday; misoprostol to qday; mirapex to qhs; Patient was asked about OTC/herbal products specifically. BRUSH MACHINE SETTER med list reflects this. Based on the pharmacist???s assessment, the BRUSH MACHINE SETTER med list information appears reliable Patient appears compliant: Yes Allergies were reviewed, assessed, and updated with the patient. Medications currently not available for use during hospital stay. Family/Patient sales representative trainee states they will bring topicals to [facility]. Thank you for the opportunity to [...] point he can't function at home. - [facility], patient of Dr Mcclure - YEVGENIY dilaudid. He also does ok with oral oxycodone and [place] - NPO, IVMF -Also has ordered for [...] care. Talked to patient. Dilshad John MD [facility] Hospitalist documented in this encounter H&P Notes Mili Monet MD - 04/28/2017 2:30 AM CDT Admission History and Physical Speedy HendricksSHREYA 1940, [facility] Prd Acute low back pain due to trauma [M54.5] PCP: Kannan Nieto MD, Code status: Full Code Extended Emergency Contact Information Primary Emergency Contact: Sania Hendricks [address]: [address] [place] [address] Mobile Relation: Spouse Secondary Emergency Contact: Chastity Hendricks [facility] Mobile Relation: Child Date of Service: 04/28/2017 [...] point he can't function at home. - [facility] consult, patient of Dr Mcclure - IV dilaudid. He also does ok with oral oxycodone and [place] - NPO, IVMF - Consider steroid but [...] not show any fracture. He was prescribed [place]. The pain did not improve. Patient saw [...] L3-4 ; Surgeon: Hang Mcclure MD; Location: [facility]; Service: ??? TONSILLECTOMY Allergies Reviewed [...] mouth 2 (two) times a day. ??? multivitamin,kf-vxrm-oghpovvi (COMPLETE MULTIVITAMIN) Tab Take by mouth. ??? [...] Social History Narrative He severed in the [place]. 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 Family History Reviewed by myself with [...] COMPATIBLE Unit Type O Pos Unit Number [id number] Status Released Component Red Blood Cells PRODUCT CODE [id number] Crossmatch Result Value Ref Range Crossmatch COMPATIBLE Unit Type O Pos Unit Number [id number] Status Released Component Red Blood Cells PRODUCT CODE [id number] Creatinine Result Value Ref Range Creatinine 1.34 (H) 0.70 - 1.30 mg/dL GFR MDRD Af Amer >60 >60 mL/min/1.73m2 GFR MDRD Non Af Amer 52 (L) >60 mL/min/1.73m2 Antibody Identification Result Value Ref Range Antibody ID > 3hr for more blood;Anti-[place] No new imaging obtained EKG: Normal sinus rhythm rate 62 bpm. No previous tracing for comparison Pertinent Labs/EKG/XRAY Reviewed Social History, Family History, PMH, PSH, Medications and Allergies reviewed. Total time: 70 minutes with >50% time spent with coordination of care and counseling reviewing plan of care with patient and family 04/28/2017 Mili Monet MD [facility] Medicine Service documented in this encounter Consult Notes Rae Campo PA-C - 04/28/2017 12:49 PM CDT ORTHOPEDIC CONSULTATION Consultation Speedy HendricksSHREYA 1940, [facility] Prd Acute low back pain due to trauma [M54.5] PCP: Kannan Nieto MD, Code status: Full Code Extended Emergency Contact Information Primary Emergency Contact: Sania Hendricks Address: [address] [place], [place] [id number] [facility] Mobile Relation: Spouse Secondary Emergency Contact: Chastity Hendricks [facility] Mobile Relation: Child CHIEF COMPLAINT: Acute low [...] ordered which he had done at [facility]. He was scheduled to see Dr. Mcclure [...] day. 04/27/2017 at just started 04/27 ??? multivitamin,dm-kpkj-jiaeenim (COMPLETE MULTIVITAMIN) Tab Take 1 tablet by [...] Mcclure and Dr. Burger, on-call surgeon for [facility] and they are in agreement with [...] follow this patient. Thank you for including [facility] in the care of Speedy Hendricks. [...] their behalf by Jhon Park, a trained director global medical affairs. The creation of this record is based [...] L3-4 ; Surgeon: Hang Mcclure MD; Location: [facility] Main OR; Service: ??? TONSILLECTOMY Past Medical [...] l stenosis. Narrative 04/29/2017 9:20 AM CDT [facility] MR LUMBAR SPINE WO CONTRAST 04/28/2017 [...] note might be different from the original. [facility] MR LUMBAR SPINE WO CONTRAST 04/28/2017 [...] 12-lead, tracing only (04/28/2017 2:05 AM CDT) [facility] Method Time Signature Systolic Blood 184 [...] HE RADIANT 8:51 AM CDT CONVERSION P [place] 16 degrees 04/28/2017 HE RADIANT 8:51 AM CDT CONVERSION R AXIS 16 degrees 04/28/2017 HE RADIANT 8:51 AM CDT CONVERSION T [place] 19 degrees 04/28/2017 HE RADIANT 8:51 AM CDT CONVERSION Interpretation Normal sinus rhythm 04/28/2017 HE R ADIANT ECG Normal ECG 8:51 AM CDT CONVERSION No previous ECGs available Confirmed by VEL ??SUKHJINDER WELSH LOC:JN ([id number]) on 04/28/2017 8:5 1:37 AM Specimen Anatomical [...] Lumbago documented in this encounter Care Teams Logistics Administrator Relationship Specialty Start Date End Date Primary Dipak Kasper MD PCP - General 09/21/1204/18 documented as of this encounter
--- OUTSIDE RECORDS SUMMARY | 2022-07-17 13:57 | XMS_ITS | Encounter Summary ---
:1940 Author Organization [place] Address [address] [place] [address] Care Team Providers Name Role Phone Primary Dr, Unknown MD Primary Care Provider Unavailable Reason for Visit Reason Onset Date Comments Appointment 10/30/2016 Encounter Details Date Type Department Care Team Description 10/30/[address] [facility] Jon White, Appointment [place] Coppola MD [address] [place] [address] [phone] [place] [address] (Wo rk) Social History Tobacco [...] before procedure. Pt's daughter will accompany him. ERENCE PRODUCER Telephone Encounter - Lisa Diaz RN - 10/30/2016 2:33 PM CST Left detailed message for pt' daughter explaining patient can have MOHS done next week in order to save himself an extra trip or they can just come in and have consult 1st. ERENCE PRODUCER Telephone Encounter - Aruna Rodriguez - 10/30/2016 8:14 AM CST Patient's daughter would like clarification as to whether Mr. Hendricks is having Mohs surgery rather than consult only - as it's scheduled @ 10:45. Please advise Raquel. ERENCE PRODUCER documented in this encounter Plan of Treatment Not on filedocumented as of this encounter Visit Diagnoses Not on filedocumented in this encounter Care Teams Stonework Tracer Relationship Specialty Start Date End Date Primary Dipak Kasper MD PCP - General 09/21/1204/18 documented as of this encounter
--- OUTSIDE RECORDS SUMMARY | 2022-07-17 13:58 | XMS_ITS | Encounter Summary ---
:1940 Author Organization [place] Address [address] [place] [address] Care Team Providers Name Role Phone Primary Dr, Unknown MD Primary Care Provider Unavailable Reason for Visit Auth/Cert - Closed Specialty Diagnoses / Procedures Referred By Contact Refer red To Contact Surgery Diagnoses painful internal fixation left foot Rh Periop Services Procedures REMOVE HARDWARE FOOT [address] [place], [place] [address] Phone: Fax: Referral ID Status Reason Start Date Expiration Date Visits Requ ested Visits Authorized [id number] Closed 1 1 Encounter Details Date Type Department Care Team Description 09/30/2012 Surgery [facility] Daniel Trujillo har dware removel left [place] [facility] D[facility] [address] [facility] [address] [facility] [phone] [place], [place] [id number] (Wo rk) Surgery Details Date/Time Status Location OR Service Patient Case Class Case Tr auma Class Type Case? 09/30/12 11:30 Posted [facility] OR OR 04 Podiatry Same Day AM Surgery Panel 1 Procedure LRB Anes Op Region Wound Class Commen ts hardware removel left foot Left MAC Foot I-Clean hardware removel left foot EXCISION, TOENAIL Right MAC Toe I-Clean Surgeon Surgeon Role Service Panel Daniel Trujillo, DPJami Primary Podiatry 1 Special Needs # Hx [...] Comments Blood Pressure 137/81 09/30/2012 10:30 AM OUTSIDE BARREL LATHE OPERATOR Pulse - - Temperature 35.9 ??C (96.6 ??F) 09/30/2012 10:24 AM OUTSIDE BARREL LATHE OPERATOR Respiratory Rate 20 09/30/2012 10:24 AM OUTSIDE BARREL LATHE OPERATOR Oxygen Saturation 98% 09/30/2012 10:24 AM OUTSIDE BARREL LATHE OPERATOR Inhaled Oxygen Concentration - - Weight 93 kg (205 lb) 09/30/2012 10:24 AM OUTSIDE BARREL LATHE OPERATOR Height 170.2 cm (5' 7) 09/30/2012 10:24 AM OUTSIDE BARREL LATHE OPERATOR Body Mass Index 32.11 09/30/2012 10:24 AM OUTSIDE BARREL LATHE OPERATOR documented in this encounter Discharge Instructions [...] DR. DANIEL TRUJILLO M.D. CLINIC PHONE NUMBER: [phone]. IDE BARREL LATHE OPERATOR documented in this encounter Medications at [...] Trujillo DPM - 09/23/2012 4:09 PM CST IDE BARREL LATHE OPERATOR documented in this encounter Nursing Notes Iwona Ruiz RN - 09/30/2012 12:33 PM CST First Panel started at 1210 and ended at 1230. Second panel started at 1230 and ended at 1237. Jen Ruiz RN IDE BARREL LATHE OPERATOR Iwona Ruiz RN - 09/30/2012 12:22 PM CST Patient did not want his hardware that was removed from procedure on 09/30/[address] Trujillo. Jen Ruiz RN IDE BARREL LATHE OPERATOR documented in this encounter OR Notes OR Anesthesia - Daniel Trujillo DPM - 10/01/2012 9:43 AM CST IDE BARREL LATHE OPERATOR documented in this encounter Miscellaneous Notes [...] DPM MT: [id number] Name: ELDA HENDRICKS Account: [id number] : 1940 Procedure Date: 09/30/2012 Document: [id number] cc: Ramiro Walker MD IDE BARREL LATHE OPERATOR Brief Op Note - Daniel Trujillo DPM - 09/30/2012 1:[address] [facility] Podiatry/Foot and Ankle Surgery Brief Operative Note Pre-operative diagnosis: Painful Internal Fixation left foot Painful recurrence of toenail right great toe Post-operative diagnosis same Procedure: Procedure(s): Hardware Removal left foot - Deep Surgical matrixectomy right great toe Surgeon: DANIEL TRUJILLO DPM Assistants(s): Anesthesia: MAC Estimated blood loss: 5 cc IDE BARREL LATHE OPERATOR documented in this encounter Plan of Treatment Not on filedocumented as of this encounter Procedures Procedure Name Priority Date/Time Associated Diagnosis Comme nts XR FOOT PORT LEFT 3 Routine 09/30/2012 1:44 PM Re sults for this VIEWS OUTSIDE BARREL LATHE OPERATOR procedure are i n the results section. EXCISION, TOENAIL 09/30/2012 11:41 AM painful internal OUTSIDE BARREL LATHE OPERATOR fixation left foot Special Needs 5'# Hx MRSA REMOVAL, HARDWARE, FOOT 09/30/2012 11:41 AM OUTSIDE BARREL LATHE OPERATOR painfu l internal fixation left foot Special Needs # Hx MRSA EKG 12-LEAD, TRACING ONLY Routine 09/30/2012 11:38 AM OUTSIDE BARREL LATHE OPERATOR Results for this procedure are in the resu lts section. HIM ECG SCAN Routine 09/30/2012 documented in this encounter Results X-ray LEFT Foot 3 vw port (09/30/2012 1:44 PM OUTSIDE BARREL LATHE OPERATOR) Anatomical Region Laterality Modality Left Foot Left Other Specimen (Source) Anatomical Collection Method Collection Time Re ceived Time Location / / Volume Laterality 09/30/2012 1:44 PM OUTSIDE BARREL LATHE OPERATOR Impressions 10/01/2012 10:47 AM OUTSIDE BARREL LATHE OPERATOR IMPRESSION: Postoperative and degenerative change. No acute abnormality. ODILON RANDOLPH MD Narrative 10/01/2012 10:47 AM OUTSIDE BARREL LATHE OPERATOR LEFT FOOT THREE OR MORE VIEWS [...] EKG 12-lead, tracing only (09/30/2012 11:38 AM OUTSIDE BARREL LATHE OPERATOR) Component Value Ref Range Test Analysis Performed Pathologis t Method Time At Signature Ventricular Rate 64 BPM RADIOLOGY RESULTS Atrial Rate 64 BPM RADIOLOGY RESULTS WI Interval 154 ms RADIOLOGY RESULTS QRS Duration 80 ms RADIOLOGY RESULTS QT 410 ms RADIOLOGY RESULTS QTc 422 ms RADIOLOGY RESULTS P [place] -1 degrees RADIOLOGY RESULTS R AXIS -9 degrees RADIOLOGY RESULTS T [place] -7 degrees RADIOLOGY RESULTS Interpretation Sinus rhythm [...] / / Volume Laterality 09/30/2012 11:38 AM OUTSIDE BARREL LATHE OPERATOR Doctor Unknown ECG ORDERABLES Performing Organization [...] 15 mLs Operative injection 0.5% (PF) PM OUTSIDE BARREL LATHE OPERATOR Site/Surgical S ite PRN, Starting on [place] 09/30/12 at 1238, Intra-procedure fentaNYL (SUBLIMAZE) injection 25-50 mcg Given 09/30/2012 2:16 PM OUTSIDE BARREL LATHE OPERATOR 50 mcg 25-50 mcg, Intravenous, EVERY 2 MIN PRN, other, acute pain, Starting on [place] 09/30/12 at 1251, MAX cumulative dose = 250 mcg. Use Fentanyl initially, as a short acting agent for acute pain control. If insufficient, or a longer acting agent is needed, begin Morphine or Hydromorphone if ordered., PACU Given 09/30/2012 1:33 PM OUTSIDE BARREL LATHE OPERATOR 50 mcg HYDROcodone-acetaminophen 5-325 MG per Given 09/30/2012 2:16 PM OUTSIDE BARREL LATHE OPERATOR 1 tablet tablet 1-2 tablet 1-2 tablet, Oral, ONCE, On [place] 09/30/12 at 1330, For 1 dose, One time prior to discharge., Post-procedure lactated ringers infusion New Bag 09/30/2012 1:33 PM OUTSIDE BARREL LATHE OPERATOR 1,000 mLs 100 mL/hr at 100 mL/hr, Intravenous, CONTINUOUS, Continue until IV catheter is weaned, PACU, Starting on [place] 09/30/12 at 1300, Until [place] 09/30/12 at 1723 lidocaine (PF) (XYLOCAINE) Given 09/30/2012 12:40 PM 4 mLs Operative Site/Surgical 1 % injection OUTSIDE BARREL LATHE OPERATOR Site PRN, Starting on [place] 09/30/12 at 1238, Intra-procedure sodium chloride 0.9% Given 09/30/2012 12:41 PM 100 mLs Operative Site/Surgical (bottle) irrigation OUTSIDE BARREL LATHE OPERATOR Site PRN, Starting on [place] 09/30/12 at 1241, Area to irrigate and instructions: ., Intra-procedure documented in this encounter Active and Recently Administered Medications Times are shown in OUTSIDE BARREL LATHE OPERATOR. Scheduled Medication Order 09/28/2012 09/29/2012 09/30/2012 [...] 1152 (Given - Provider: Lety Guzman APRN [place] LO DRIVER) Routine, 900 mg, Intravenous, EVERY 6 HO [...] mcg (CANCELED) 1333 (Given - Provider: Nai Galarza RN)1416 (Given - Provider: Nai Galarza RN) 25-50 [...] Intra-procedure documented in this encounter Care Teams Greenhouse Specialist Relationship Specialty Start Date End Date Primary Dipak Kasper MD PCP - General 09/21/1204/18 documented as of this encounter
--- OUTSIDE RECORDS SUMMARY | 2022-07-17 13:58 | XMS_ITS | Encounter Summary ---
:1940 Author Organization [place] Address [facility] [place] [address] Care Team Providers Name Role Phone Unavailable Primary Care Provider Unavailable Reason for Visit Reason Comments Surgical Followup 02/06 left foot post op and r ight great toe post op. Encounter Details Date Type Department Care Team Description 04/02/[address] [facility] Yumiko Castellanos DPM (Primary Dx) [address] [phone] [place], [place] [id number] Social History Tobacco Use Types Packs/Day Years [...]
--- OUTSIDE RECORDS SUMMARY | 2022-07-17 13:58 | XMS_ITS | Encounter Summary ---
:1940 Author Organization [place] Address [address] [place] [address] Care Team Providers Name Role Phone Unavailable Primary Care Provider Unavailable Reason for Visit Reason Comments Surgical Followup 02/06 left foot post op. Encounter Details Date Type Department Care Team Description 02/14/2011 Office Visit [facility] Afterca re following Yariel Castellanos DPM surgery of the [facility] [address] musculoskeletal system, [place] [address] E NEC (Primary Dx) [phone] [facility] [address] [place], [place] [address] Social History Tobacco Use Types [...] Component Value Ref Test Analysis Performed At [facility] Range Method Time Signature Specimen Toe MAL[place] Description [facility] Culture Micro Heavy growth [place] Methicillin [facility] Staphylococcus aureus (MRSA) Micro Report FINAL 02/17/2011 [place] Status [facility] Specimen Anatomical Collection Method Collection [...] M [facility] [address] [address] [facility] documented in this encounter Visit Diagnoses Diagnosis Aftercare following [facility], NEC - Primary documented in this encounter
--- OUTSIDE RECORDS SUMMARY | 2022-07-17 13:58 | XMS_ITS | Encounter Summary ---
:1940 Author Organization [place] Address [address] [place] [address] Care Team Providers Name Role Phone Unavailable Primary Care Provider Unavailable Reason for Visit Reason Onset Date Comments Patient Inquiry 02/19/2011 [facility] and Creat risi ng Encounter Details Date Type Department Care Team Description 02/19/2011 Telephone [facility] Sal [facility]arro Pat iestar Inquiry ([facility] [place] DPM and Creat rising) [address] [place] [address] [phone] Social History Tobacco Use Types Packs/Day Years [...] and call daughter Raquel with plan @ [phone]. Thanks, Aruna Arriaza RN documented in this encounter Plan of Treatment Not on filedocumented as of this encounter Visit Diagnoses Not on filedocumented in this encounter
--- OUTSIDE RECORDS SUMMARY | 2022-07-17 13:58 | XMS_ITS | Encounter Summary ---
:1940 Author Organization [place] Address [facility] [place] [address] Care Team Providers Name Role Phone Unavailable Primary Care Provider Unavailable Reason for Visit Reason Comments Musculoskeletal Problem pt states he broke his left great toe and 2nd toe. He is still having trouble/pain in his 2nd toe. Sx since September. Encounter Details Date Type Department Care Team Description 01/29/2011 Office Visit [facility] Sal Chaparro Fractu re, nonunion (Primary Dx); Clinic Cowdrey F, DPM Other hammer toe (acquired); [address] Pain in so ft tissues of limb [facility] [facility] 100 [address] [place], [place] [id number] Social History Tobacco Use Types Packs/Day Years Used Date Never Assessed Sex Assigned at Date Recorded Not on file documented as of this encounter Progress Notes Sal Chaparro - 01/30/2011 4:52 PM CDT Subjective: Pt is seen today as a new pt self referral with the c[facility]c [facility]. 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 Pt has been treated in [...] area. X-rays were reviewed Nov 2010 from [facility] clinic with the pt which [...]
--- OUTSIDE RECORDS SUMMARY | 2022-07-17 13:58 | XMS_ITS | Encounter Summary ---
:1940 Author Organization [place] Address [facility] [place] [address] Care Team Providers Name Role Phone Unavailable Primary Care Provider Unavailable Reason for Visit Reason Comments Surgical Followup 02/06 left foot surgery. Seco nd metatarsal fracture nonunion, left foot Encounter Details Date Type Department Care Team Description 04/30/2011 Office Visit [facility] Sal Chaparro aftercare Clinic Yumiko Castellanos DPM (Primary Dx) [address] [phone] [place], [place] [id number] Social History Tobacco Use Types Packs/Day Years [...]
--- OUTSIDE RECORDS SUMMARY | 2022-07-17 13:58 | XMS_ITS | Encounter Summary ---
:1940 Author Organization [place] Address [address] [place] [address] Care Team Providers Name Role Phone Unavailable Primary Care Provider Unavailable Encounter Details Date Type Department Care Team Description 02/06/2011 Results [facility] Tiffanie meadows, Sal Castellanos, DPM Hospital Results [address] [place], [place] [address] (Wo rk) Social History Tobacco [...]
--- OUTSIDE RECORDS SUMMARY | 2022-07-17 13:58 | XMS_ITS | Encounter Summary ---
:1940 Author Organization [place] Address [address] [place] [address] Care Team Providers Name Role Phone Unavailable Primary Care Provider Unavailable Reason for Visit Reason Comments Surgical Followup follow up to left foot surge ry. Encounter Details Date Type Department Care Team Description 07/16/2011 Office Visit [facility] Sal Chaparro Foot p ain (Primary Dx); Clinic Yumiko Castellanos DPM [place] [address] [place] [phone] [place] [address] Social History Tobacco Use [...]
--- OUTSIDE RECORDS SUMMARY | 2022-07-17 13:58 | XMS_ITS | Encounter Summary ---
:1940 Author Organization [place] Address [address] [place] [address] Care Team Providers Name Role Phone Unavailable Primary Care Provider Unavailable Reason for Visit Reason Comments Surgical Followup 02/06 left foot post op. Encounter Details Date Type Department Care Team Description 06/04/2011 Office Visit [facility] Sal Chaparro aftercare (Primary Dx); Clinic Yumiko Castellanos DPM [place] [address] [place] [phone] [place] [address] Social History Tobacco Use Types [...]
--- OUTSIDE RECORDS SUMMARY | 2022-07-17 13:58 | XMS_ITS | Encounter Summary ---
:1940 Author Organization [place] Address [address] [place] [address] Care Team Providers Name Role Phone Unavailable Primary Care Provider Unavailable Reason for Visit Reason Comments Surgical Followup left foot post op. Encounter Details Date Type Department Care Team Description 09/17/2011 Office Visit [facility] Sal Chaparro y aftercare Clinic Yumiko Castellanos DPM (Primary Dx) [address] [facility] [address] [place] [address] Social History Tobacco Use Types [...] a regular shoe on lt. F/U prn. HOUSE KEEPER documented in this encounter Nursing Notes 09/17/2011 [...] Surgery aftercar e Results for this VIEWS BOATHOUSE KEEPER procedure are i n the results section. documented in this encounter Results X-ray lt Foot G/E 3 vws* (09/17/2011 9:01 AM BOATHOUSE KEEPER) Anatomical Region Laterality Modality Foot, Ankle Left Other Specimen (Source) Anatomical Collection Method Collection Time Re ceived Time Location / / Volume Laterality 09/17/2011 9:01 AM BOATHOUSE KEEPER Impressions 09/17/2011 11:23 AM BOATHOUSE KEEPER FOOT THREE OR MORE VIEWS LEFT Sep [...]
--- OUTSIDE RECORDS SUMMARY | 2022-07-17 13:58 | XMS_ITS | Encounter Summary ---
:1940 Author Organization [place] Address [address] [place] [address] Care Team Providers Name Role Phone Unavailable Primary Care Provider Unavailable Encounter Details Date Type Department Care Team Description 08/05/2012 Telephone [facility] Sal Chaparro DPM [address] [address] [place] [address] [place], [place] [address] (Wo rk) Social History Tobacco [...] outlook. Date/Time: 09/30/2012 @ 12:50 pm Hospital: [facility] Anesthesia: MAC Surgeon: Juana CourtneyPNomanMNoman Preop:Unknown Consent: Hardware removal left foot Surgeon Procedure Time: 30 min Anesthesia: MAC Location: [facility] Pre-Operative Medications: Clindamycin 900 mg IV pre-op Special Instrumentation: Synthes mini locking plate screw lifter/driver Electronically signed by Sal Chaparro DPM Advised [...]
--- OUTSIDE RECORDS SUMMARY | 2022-07-17 13:58 | XMS_ITS | Encounter Summary ---
:1940 Author Organization [place] Address [address] [place] [address] Care Team Providers Name Role Phone Primary Dr, Unknown MD Primary Care Provider Unavailable Reason for Visit Reason Comments Surgical Followup bilat infections Encounter Details Date Type Department Care Team Description 10/05/[address] [facility] Sal Chaparro [facility] are following Clinic Cochise F, DPM surgery of the [address] [place] [address] musculoskeletal system, [place], [place] E NEC (Primary Dx) [phone] [place] [address] [address] [place], [place] [address] Social History Tobacco Use Types [...] Comments Blood Pressure 136/80 10/05/2012 12:04 PM MANAGER OF TRANSPORTATION Pulse 60 10/05/2012 12:04 PM MANAGER OF TRANSPORTATION Temperature 36.8 ??C (98.2 ??F) 10/05/2012 12:04 PM MANAGER OF TRANSPORTATION Respiratory Rate - - Oxygen Saturation - - Inhaled Oxygen Concentration - - Weight 93 kg (205 lb) 10/05/2012 12:04 PM MANAGER OF TRANSPORTATION Height 170.2 cm (5' 7) 10/05/2012 12:04 PM MANAGER OF TRANSPORTATION Body Mass Index 32.11 10/05/2012 12:04 PM MANAGER OF TRANSPORTATION documented in this encounter Progress Notes Sal [...] or concerns and follow-up in 1-2 wks. GER OF TRANSPORTATION documented in this encounter Plan of Treatment Not on filedocumented as of this encounter Procedures Procedure Name Priority Date/Time Associated Diagnosis Comme nts CBC WITH PLATELETS & Routine 10/05/2012 12:21 Aftercare follow ing Results for this DIFFERENTIAL PM MANAGER OF TRANSPORTATION surgery of the procedure are in musculoskeletal system, the results NEC section. URIC ACID Routine 10/05/2012 12:21 Aftercare following Resu lts for this PM MANAGER OF TRANSPORTATION surgery of the procedure are in musculoskeletal system, the results NEC section. BASIC METABOLIC Routine 10/05/2012 12:21 Aftercare following R esults for this PANEL PM MANAGER OF TRANSPORTATION surgery of the procedure are in musculoskeletal system, the results NEC section. WOUND CULTURE Routine 10/05/2012 12:20 Aftercare following Res ults for this AEROBIC BACTERIAL PM MANAGER OF TRANSPORTATION surgery of the procedur e are in musculoskeletal system, the results NEC section. documented in this encounter Results (ABNORMAL) Basic metabolic panel (Ca, Cl, CO2, Creat, Gluc, K, Na, BUN) (10/05/2012 12:21 PM MANAGER OF TRANSPORTATION) Analysis Performed At [facility] logist Time Signature Sodium 140 133 - 144 [place] mmol/L [facility] Potassium 4.8 3.4 - 5.3 [place] mmol/L [facility] Chloride 103 94 - 109 [facility] mmol/L [facility] Carbon Dioxide 25 20 - 32 [place] mmol/L [facility] Anion Gap 12 6 - 17 [place] mmol/L [facility] Glucose 108 (H) 60 - 99 [place] mg/dL [facility] Urea Nitrogen 23 7 - 30 [place] mg/dL [facility] Creatinine 1.41 (H) 0.66 - COUNT INCLUD[facility] 1.25 mg/dL [facility] GFR Estimate 50 (L) >60 [place] mL/min/1.7 [facility] m2 LAB GFR Estimate If 60 (L) >60 [place] Black mL/min/1.7 [facility] m2 LAB Calcium 9.5 8.5 - 10.4 [place] mg/dL [facility] Specimen Anatomical Collection Method Collection Time Receive d Time (Source) Location / / Volume Laterality Blood specimen 10/05/2012 12:21 2 (specimen) PM MANAGER OF TRANSPORTATION 12:22 PM MANAGER OF TRANSPORTATION Sal Cahparro DPM LAB - BLOOD ORDERABLES Performing Organization Address City/State/ZIP Code Phon e Number [facility] [address] [place] [address] [facility] (ABNORMAL) CBC with platelets and differential (10/05/2012 12:21 PM MANAGER OF TRANSPORTATION) [facility] gist Method Time Signature WBC 7.8 4.0 - [place] 11.0 [facility] 10e9/L CLINIC LAB RBC Count 4.45 4.4 - 5.9 [place] 10e12/L [facility] Hemoglobin 14.6 13.3 - COUNT INCLUDES [facility] 17.7 g/dL [facility] Hematocrit 43.2 40.0 - [place] 53.0 % [facility] MCV 97 78 - 100 [facility] MCH 32.8 26.5 - [place] 33.0 pg [facility] MCHC 33.8 31.5 - [place] 36.5 g/dL [facility] RDW 12.9 10.0 - [place] 15.0 % [facility] Platelet Count 152 150 - 450 [place] 10e9/L [facility] Diff Method Automated [place] Method [facility] % Neutrophils 62.1 40 - 75 % [facility] % Lymphocytes 18.9 (L) 20 - 48 % [facility] % Monocytes 13.4 (H) 0 - 12 % [facility] % Eosinophils 5.2 0 - 6 % [facility] % Basophils 0.4 0 - 2 % [facility] Absolute 4.9 1.6 - 8.3 [place] Neutrophil 10e9/L [facility] Absolute 1.5 0.8 - 5.3 [place] Lymphocytes 10e9/L [facility] Absolute 1.1 0.0 - 1.3 [place] Monocytes 10e9/L [facility] Absolute 0.4 0.0 - 0.7 [place] Eosinophils 10e9/L [facility] Absolute 0.0 0.0 - 0.2 [place] Basophils 10e9/L [facility] Specimen Anatomical Collection Method Collection Time Receive d Time (Source) Location / / Volume Laterality Blood specimen 10/05/2012 12:21 2 (specimen) PM MANAGER OF TRANSPORTATION 12:22 PM MANAGER OF TRANSPORTATION Sal Chaparro DPM LAB - BLOOD ORDERABLES Performing Organization Address City/State/ZIP Code Phon e Number [facility] [address] [place] [address] [facility] Uric acid (10/05/2012 12:21 PM MANAGER OF TRANSPORTATION) P athologist Signature Uric Acid 7.1 3.5 - 8.5 [place] mg/dL CLINIC LAB Specimen Anatomical Collection Method Collection Time Receive d Time (Source) Location / / Volume Laterality Blood specimen 10/05/2012 12:21 2 (specimen) PM MANAGER OF TRANSPORTATION 12:22 PM MANAGER OF TRANSPORTATION Sal Chaparro DPJami LAB - BLOOD ORDERABLES Performing Organization Address City/State/ZIP Code Phon e Number [facility] [address] [place] [address] [facility] Wound culture (10/05/2012 12:20 PM MANAGER OF TRANSPORTATION) [facility] Method Time Signature Specimen Other [facility] Culture Micro No growth [facility] MICROBIOLOGY Micro Report FINAL [facility] Status 10/07/2012 MICROBIOLOGY Specimen Anatomical Collection Method Collection Time Receive d Time (Source) Location / / Volume Laterality Specimen from 10/05/2012 12:20 10/05/2012 wound (specimen) PM MANAGER OF TRANSPORTATION 12:41 PM CS T Sal Chaparro DPM LAB - MICRO GENERAL ORDERABL ES Performing Organization Address City/State/ZIP Code Phon e Number [facility] [address] [place] [address] [facility] MICROBIOLOGY documented in this encounter Visit Diagnoses Diagnosis Aftercare [facility] N[facility] - Primary documented in this encounter Care Teams Monitoring Analyst Relationship Specialty Start Date End Date Primary Dipak Kasper MD PCP - General 09/21/1204/18 documented as of this encounter
--- OUTSIDE RECORDS SUMMARY | 2022-07-17 13:58 | XMS_ITS | Encounter Summary ---
:1940 Author Organization [place] Address [address] [place] [address]. [place] [address] Care Team Providers Name Role Phone Primary Dr, Unknown MD Primary Care Provider Unavailable Encounter Details Date Type Department Care Team Description 09/30/2012 Anesthesia Event [facility] Viraj Silva Peri Letty Tejeda MD [address] [place] [address] ANESTHESIA [phone] [facility] 20 [place], [place] [address] (Wo rk) Anesthesia Record [...] Type Details Placement Removal Peripheral IV 09/30/12; (MEMORY CARE PROGRAM RESIDENT); 20 09/30/12 0000 by 09/30/12 14 45 by G; Left; Hand Ron Velasquez Heather Ann, JOSE Manjarrez, JOSE Incision/Surgical Site 09/30/12; 1224; 09/30/12 1224 by 09/29/18 1456 by Left; Foot; Iwona Ruiz RN Kabwbereket, Oly sales RN 09/29/18; 1456 documented in this encounter [...] 97.00%. Additional Comments: Doing Well. Euvolemic. AKollitzMD OW ASSISTANT Anesthesia Preprocedure Evaluation - Damian Silva MD [...] benefits and alternatives discussed with: patient or access services representative. Possibility of blood products discussed. History & Physical Review History and physical reviewed; no interval change. . OW ASSISTANT documented in this encounter Miscellaneous Notes Anesthesia Care Transfer Note - Lety Guzman APRN CRNA - 09/30/2012 12:47 PM CST Anesthesia Care Transfer Note Patient: Speedy Hendricks Transferred to: Phase II Patient vital signs: stable Airway: none To phase 2. criteria met. OW ASSISTANT documented in this encounter Plan of Treatment Not on filedocumented as of this encounter Visit Diagnoses Not on filedocumented in this encounter Administered Medications Inactive Administered Medications - up to 3 most recent administrations Medication Order MAR Action Action Date Dose Rate Site clindamycin (CLEOCIN) IVPB 900 mg Given 09/30/2012 11:52 AM ESCROW ASSISTANT 900 mg Routine, 900 mg, Intravenous, EVERY 6 HOURS PRN, Starting on Yes[place] 09/30/12 at 1034, Intra-Op Dose. Give every 6 hours while patient in surgery, starting 6 hours after pre-op dose. DO NOT GIVE intra-op dose if CrCl < 10 mL/min (on dialysis). If CrCL < 50 mL/min, double the time interval between doses., Pre-procedure fentaNYL (SUBLIMAZE) injection Given 09/30/2012 12:15 PM ESCROW ASSISTANT 50 mcg PRN, moderate to severe pain, Starting on [place] 09/30/12 at 1215, Anesthesia Intra-op lactated ringers infusion New Bag 09/30/2012 11:39 AM ESCROW ASSISTANT mL Intravenous, CONTINUOUS PRN, Anesthesia Intra-op, Starting on [place] 09/30/12 at 1139, Until [place] 09/30/12 at 1248 midazolam (VERSED) injection Given 09/30/2012 11:54 AM ESCROW ASSISTANT 2 mg PRN, anxiety, Starting on [place] 09/30/12 at 1145, Anesthesia Intra-op Given 09/30/2012 11:45 AM ESCROW ASSISTANT 2 mg propofol (DIPRIVAN) Rate/Dose 09/30/2012 12:11 20 mcg/kg/min 11.2 mL /hr injection Change PM ESCROW ASSISTANT CONTINUOUS PRN, Starting on Yes[place] 09/30/12 at 1202, Anesthesia Intra-op Rate/Dose Change 09/30/2012 12:04 PM ESCROW ASSISTANT 10 mcg/kg/min 5.6 mL/hr New Bag 09/30/2012 12:02 PM ESCROW ASSISTANT 55 mcg/kg/min 30.7 mL/hr documented in this encounter Care Teams Patient Companion Relationship Specialty Start Date End Date Primary Dipak Kasper, PCP - General 09/21/1204/18 documented as of this encounter
--- OUTSIDE RECORDS SUMMARY | 2022-07-17 13:58 | XMS_ITS | Encounter Summary ---
:1940 Author Organization [place] Address [address] [place] [address] Care Team Providers Name Role Phone Primary Dr, Unknown MD Primary Care Provider Unavailable Reason for Visit Auth/Cert - Closed Specialty Diagnoses / Procedures Referred By Contact Refer red To Contact Surgery Diagnoses painful internal fixation left foot Rh Periop Services Procedures REMOVE HARDWARE FOOT [address] [place], [place] [address] Phone: Fax: Referral ID Status Reason Start Date Expiration Date Visits Requ ested Visits Authorized [id number] Closed 1 1 Encounter Details Date Type Department Care Team Description 09/30/2012 Hospital Encounter [facility] Alvin Trujillo rcare following Andres Castellanos DPM surgery of the PreOP/PostOP [address] [place] musculoskeletal system, [address] (Primary Dx) [address] [place] [address] [phone] Social History Tobacco Use Types Packs/Day Years [...] Comments Blood Pressure 130/79 09/30/2012 2:45 PM BRANCH CONTROLLER Pulse - - Temperature 36.2 ??C (97.2 ??F) 09/30/2012 2:45 PM BRANCH CONTROLLER Respiratory Rate 16 09/30/2012 2:45 PM BRANCH CONTROLLER Oxygen Saturation 98% 09/30/2012 2:45 PM BRANCH CONTROLLER Inhaled Oxygen Concentration - - Weight 93 kg (205 lb) 09/30/2012 10:24 AM BRANCH CONTROLLER Height 170.2 cm (5' 7) 09/30/2012 10:24 AM BRANCH CONTROLLER Body Mass Index 32.11 09/30/2012 10:24 AM BRANCH CONTROLLER documented in this encounter Discharge Instructions Discharge [...] DR. SAL TRUJILLO M.D. CLINIC PHONE NUMBER: [phone]. CH CONTROLLER documented in this encounter Medications at Time [...] Trujillo DPM - 09/23/2012 4:09 PM CST CH CONTROLLER documented in this encounter Nursing Notes Iwona Ruiz RN - 09/30/2012 12:33 PM CST First Panel started at 1210 and ended at 1230. Second panel started at 1230 and ended at 1237. Jen Ruiz RN CH CONTROLLER Iwona Ruiz RN - 09/30/2012 12:22 PM CST Patient did not want his hardware that was removed from procedure on 09/30/[address] Trujillo. Jen Ruiz RN CH CONTROLLER documented in this encounter OR Notes OR Anesthesia - Sal Trujillo DPM - 10/01/2012 9:43 AM CST CH CONTROLLER documented in this encounter Miscellaneous Notes Op [...] vascular status intact. SAL TRUJILLO DPM MT: #[id number] Name: ELDA HENDRICKS Account: [id number] : 1940 Procedure Date: 09/30/2012 Document: [id number] cc: Ramiro Walker MD CH CONTROLLER Brief Op Note - Sal Trujillo DPM - 09/30/2012 1:01 PM CST [facility] Podiatry/Foot and Ankle Surgery Brief Operative Note Pre-operative diagnosis: Painful Internal Fixation left foot Painful recurrence of toenail right great toe Post-operative diagnosis same Procedure: Procedure(s): Hardware Removal left foot - Deep Surgical matrixectomy right great toe Surgeon: SAL TRUJILLO DPM Assistants(s): Anesthesia: MAC Estimated blood loss: 5 cc CH CONTROLLER documented in this encounter Plan of Treatment Not on filedocumented as of this encounter Procedures Procedure Name Priority Date/Time Associated Diagnosis Comme nts XR FOOT PORT LEFT 3 Routine 09/30/2012 1:44 PM Re sults for this VIEWS BRANCH CONTROLLER procedure are i n the results section. EXCISION, TOENAIL 09/30/2012 11:41 AM painful internal BRANCH CONTROLLER fixation left foot Special Needs 5# Hx MRSA REMOVAL, HARDWARE, FOOT 09/30/2012 11:41 AM BRANCH CONTROLLER painfu l internal fixation left foot Special Needs # Hx MRSA EKG 12-LEAD, TRACING ONLY Routine 09/30/2012 11:38 AM BRANCH CONTROLLER Results for this procedure are in the resu lts section. HIM ECG SCAN Routine 09/30/2012 documented in this encounter Results X-ray LEFT Foot 3 vw port (09/30/2012 1:44 PM BRANCH CONTROLLER) Anatomical Region Laterality Modality Left Foot Left Other Specimen (Source) Anatomical Collection Method Collection Time Re ceived Time Location / / Volume Laterality 09/30/2012 1:44 PM BRANCH CONTROLLER Impressions 10/01/2012 10:47 AM BRANCH CONTROLLER IMPRESSION: Postoperative and degenerative change. No acute abnormality. ODILON RANDOLPH MD Narrative 10/01/2012 10:47 AM BRANCH CONTROLLER LEFT FOOT THREE OR MORE VIEWS PORTABLE [...] EKG 12-lead, tracing only (09/30/2012 11:38 AM BRANCH CONTROLLER) Component Value Ref Range Test Analysis Performed Pathologis t Method Time At Signature Ventricular Rate 64 BPM RADIOLOGY RESULTS Atrial Rate 64 BPM RADIOLOGY RESULTS SD Interval 154 ms RADIOLOGY RESULTS QRS Duration 80 ms RADIOLOGY RESULTS QT 410 ms RADIOLOGY RESULTS QTc 422 ms RADIOLOGY RESULTS P [place] -1 degrees RADIOLOGY RESULTS R AXIS -9 degrees RADIOLOGY RESULTS T [place] -7 degrees RADIOLOGY RESULTS Interpretation Sinus rhythm [...] / / Volume Laterality 09/30/2012 11:38 AM BRANCH CONTROLLER Doctor Unknown MD ECG ORDERABLES Performing Organization Address City/State/ZIP Code Phon e Number RADIOLOGY RESULTS ECG - HIM ECG Scan (09/30/2012) Narrative This result has an attachment that is no t available. Sal Trujillo DPM ECG ORDERABLES documented in this encounter Visit Diagnoses Diagnosis Aftercare following surgery of the [facility] system, NEC - Primary documented in this encounter Administered Medications Inactive Administered Medications - up to 3 most recent administrations Medication Order MAR Action Action Date Dose Rate Site fentaNYL (SUBLIMAZE) injection Given 09/30/2012 2:16 PM BRANCH CONTROLLER 50 m cg 25-50 mcg 25-50 mcg, Intravenous, EVERY 2 MIN PRN, other, acute pain, Starting on Yes[place] 09/30/12 at 1251, MAX cumulative dose = 250 mcg. Use Fentanyl initially, as a short acting agent for acute pain control. If insufficient, or a longer acting agent is needed, begin Morphine or Hydromorphone if ordered., PACU Given 09/30/2012 1:33 PM BRANCH CONTROLLER 50 mcg HYDROcodone-acetaminophen 5-325 MG per Given 09/30/2012 2:16 PM BRANCH CONTROLLER 1 tablet tablet 1-2 tablet 1-2 tablet, Oral, ONCE, On Yesenia 09/30/12 at 1330, For 1 dose, One time prior to discharge., Post-procedure lactated ringers infusion New Bag 09/30/2012 1:33 PM BRANCH CONTROLLER 1,000 mLs 100 mL/hr at 100 mL/hr, Intravenous, CONTINUOUS, Continue until IV catheter is weaned, PACU, Starting on Yes[place] 09/30/12 at 1300, Until Yes[place] 09/30/12 at 1723 documented in this encounter Active and Recently Administered Medications Times are shown in BRANCH CONTROLLER. Scheduled Medication Order 09/28/2012 09/29/2012 09/30/2012 HYDROcodone-acetaminophen [...] 1152 (Given - Provider: Lety Guzman APRN [employer]DING CAKE DESIGNER) Routine, 900 mg, Intravenous, EVERY 6 HO [...] Intra-procedure documented in this encounter Care Teams Front Office Administrator Relationship Specialty Start Date End Date Primary Dipak Kasper MD PCP - General 09/21/1204/18 documented as of this encounter
--- OUTSIDE RECORDS SUMMARY | 2022-07-17 13:58 | XMS_ITS | Encounter Summary ---
:1940 Author Organization [facility] Address [address] [place] [address] Care Team Providers Name Role Phone Primary Dr, Unknown MD Primary Care Provider Unavailable Reason for Visit Reason Onset Date Comments Call To Schedule Appointment 10/08/2012 Encounter Details Date Type Department Care Team Description 10/08/2012 Telephone [facility] Sal Engel, Call To Schedule [address] [employer] [place] [address] [address] [phone] [address] [place], [place] [address] (Wo rk) Social History Tobacco Use Types [...] Is scheduled for 10/22/12. Marianne Kim RN MA MANAGER Telephone Encounter - Sal Chaparro DPM - 10/08/2012 10:28 AM TRAUMA MANAGER Marianne, Would recommend F/U appt either Dr. Nesbitt or myself in 2-3 wks. MA MANAGER Telephone Encounter - Brittany Phan - 10/08/2012 10:08 AM CST Pt no showed appt today and you are off next week do you want him to f/u with another provider or see you the following week? MA MANAGER Telephone Encounter - Nelida Davalos - 10/08/2012 7:53 AM CST Patient was told to schedule an appointment two weeks after operation which would be on ThursdayOctober 22. Dr. Chaparro stated he would like to see patient exactly two weeks after operation and to fit him into the schedule. Please contact patient to schedule appointment. Thank you, Nelida Lopez Central Scheduling MA MANAGER documented in this encounter Plan of Treatment Not on filedocumented as of this encounter Visit Diagnoses Not on filedocumented in this encounter Care Teams Mems Engineer Relationship Specialty Start Date End Date Primary Dipak Kasper MD PCP - General 09/21/1204/18 documented as of this encounter
--- OUTSIDE RECORDS SUMMARY | 2022-07-17 13:58 | XMS_ITS | Encounter Summary ---
:1940 Author Organization [facility] Address [address] [place] [address] Care Team Providers Name Role Phone Unavailable Primary Care Provider Unavailable Reason for Visit Reason Comments Surgical Followup 02/06/11 post op left foot wi th hardware. pt is having pain. Encounter Details Date Type Department Care Team Description 07/30/2012 Office Visit [facility] Sal Chaparro pa in (Primary Dx); Yariel Castellanos DPM Enthesopathy of unspecified site [address] [place] [address] E [phone] [facility] [address] [place], [place] [address] Social History Tobacco Use Types [...] Procedure Time: 30 min Anesthesia: MAC Location: [facility] Pre-Operative Medications: Clindamycin 900 mg IV pre-op Special Instrumentation: Synthes mini locking plate screw contract driver documented in this encounter Nursing Notes [...]
--- OUTSIDE RECORDS SUMMARY | 2022-07-17 13:58 | XMS_ITS | Encounter Summary ---
:1940 Author Organization [facility] Address [address] [place] [address] Care Team Providers Name Role Phone Unavailable Primary Care Provider Unavailable Reason for Visit Reason Comments Surgical Followup 02/06 post op left foot 2nd m etatarsal Fx. Encounter Details Date Type Department Care Team Description 03/05/2011 Office Visit [facility] Sal [facility] Yumiko Castellanos DPM (Primary Dx) [address] [phone] [place] [address] Social History Tobacco Use Types [...]
--- OUTSIDE RECORDS SUMMARY | 2022-07-17 13:58 | XMS_ITS | Encounter Summary ---
:1940 Author Organization [facility] Address [address] [place] [address] Care Team Providers Name Role Phone Unavailable Primary Care Provider Unavailable Encounter Details Date Type Department Care Team Description 02/06/[address] [facility] Daniel Trujillo, (School Traffic Guard) [facility] DPM Results [address] [place], [place] [address] (Wo rk) Social History Tobacco [...] medial and laterally and with a small Burleigh blade, I was able to carefully dissect [...] DPM MT: [id number] Name: SPEEDY MCDUFFIE Account: [id number] : 1940 Procedure Date: 02/06/2011 Document: [id number] cc: Michelle Hedrick MD documented in this encounter Plan of Treatment Not on filedocumented as of this encounter Visit Diagnoses Not on filedocumented in this encounter
== END 2022-07-17 13:48 | disposition home or self-care (01) ==
LOC: WOUND 13:48
PROVIDERS: PCP Family Medicine; Visit Provider Nurse Practitioner Family
DX: L89.324 Pressure ulcer of left buttock, stage 4 (principal)
CPT/HCPCS: 15271; Q4151

== ENCOUNTER 2022-07-31 13:50 | Outpatient (CLI) | payer MEDICARE, BC, SELFPAY ==
--- OUTSIDE RECORDS SUMMARY | 2022-07-31 13:53 | XMS_ITS ---
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 F July 30, 2022 11: 51 AM Weight Vital Sign Value Date / Time Estimated Dry Weight 71.5 kg July 02, 2022 11:59 PM Pre-Dialysis 72.50 kg July 30, 2022 11: 51 AM Post-Dialysis 71.50 kg July 30, 2022 11: 51 AM Other Other Value Date / Time Height 177.8 cm July 25, 2022 12: 00 AM [facility] RESULTS Hematology Result Type Result Value Relevant Interpretation Date Reference Range HGB 11.6 g/dL Males: 14.0 - Low July 02, 18.0 g/dL 2021 Females: 12.0 - 16.0 g/dL Hemoglobin x 3 34.8 % Male: 14.0 - 18.0 Low Septembe r , g/dL; Female: 2021 12.0-16.0 g/dL HGB 11.3 g/dL Males: 14.0 - Low July 09, 18.0 g/dL 2021 Females: 12.0 - 16.0 g/dL Hemoglobin x 3 33.9 % Male: 14.0 - 18.0 Low Septembe r 21, g/dL; Female: 2021 12.0-16.0 g/dL HGB 11.2 g/dL Males: 14.0 - Low July 16, 18.0 g/dL 2021 Females: 12.0 - 16.0 g/dL Hemoglobin x 3 33.6 % Male: 14.0 - 18.0 Low Septembe r 28, g/dL; Female: 2021 12.0-16.0 g/dL YARIEL 3.4 % 0.0-4.0% - July 23, 2 Basophils 0.2 % 0.0-1.5% - July 23, 2 Eosinophil 2.1 % 0.0-7.0% - July 23, 2 Monocytes 7.8 % 3.0-10.0% - July 23 2 Lymphocytes 17.3 % 19.0-48.0% Low July 23 2 Neutrophils 69.3 % 40.0-75.0% - July 23 2 RDW 14.7 % No Reference High July 23 2 range provided MCHC 32.4 g/dL 30 - 36 g/dL - July 23 2 MCH 31.7 pg 27 - 31 pg/cell High July 23, 2022 Ferritin 864 ng/mL Males: 22 - 322 High July 23, 2022 ng/mL; Females: 10 - 291 ng/mL Iron 93 mcg/dL Females: 30-160 - July 23, 2022 mcg/dL Males: 45-160 mcg/dL UIBC (Calc) 155 mcg/dL 155-355 mcg/dL - July 23, 022 TIBC 248 mcg/dL 185-515 mcg/dL - July 23 022 Transferrin Sat. 38 % 20-55% - July 23, 2022 (Calc) Platelets 162 1000/mcL 555-613 6881/mcL - July 23, 2022 HCT 36.8 % Males: 42 - 52% Low July 23, 2022 Females: 37 - 47% Hemoglobin x 3 35.7 % Male: 14.0 - 18.0 Low July 23, 2022 g/dL; Female: 12.0-16.0 g/dL HGB 11.9 g/dL Males: 14.0 - Low July 23 18.0 g/dL Females: 12.0 - 16.0 g/dL RBC 3.76 mill/mcL Males: 4.70 - Low July 23 6.10 mill/mcL Females: 4.20 - 5.40 mill/mcL WBC (No Diff) 5.78 1000/mcL 4.8-10.8 - July 23 thous/mcL HGB 11.8 g/dL Males: 14.0 - Low July 30 18.0 g/dL Females: 12.0 - 16.0 g/dL Hemoglobin x 3 35.4 % Male: 14.0 - 18.0 Low July 30, 2022 g/dL; Female: 12.0-16.0 g/dL Metabolic/Renal Result Type Result Value Relevant Reference Interpretation Date Range Creatinine, Serum 3.00 mg/dL 0.6-1.3 mg/dL High July 02, 2022 BUN/Creat Ratio 9.3 08-07 Low June BUN 28 mg/dL 6-19 mg/dl [...] mg/dl High July 09 BUN/Creat Ratio 9.8 - Low June Creatinine, Serum 3.05 mg/dL 0.6-1.3 mg/dL High July 16, 2022 BUN 30 mg/dL 6-19 mg/dl High July 16 Bicarbonate 30 mEq/L 22-29 mEq/L - July 16 Chloride 100 mEq/L 96-108 mEq/L - July 16 Potassium 4.2 mEq/L 3.5-5.1 mEq/L - July 16, 2022 Sodium 140 mEq/L 136-145 mEq/L - July 16, 2022 URR, Calc 74 % 65 - 80% - July 23 BUN, Post 11 mg/dL 6-19 mg/dL - July 23 Bicarbonate 24 mEq/L 22-29 mEq/L - July 23 Potassium 4.4 mEq/L 3.5-5.1 mEq/L - July 23 Chloride 102 mEq/L 96-108 mEq/L - July 23 BUN 43 mg/dL 6-19 mg/dl High July 23 Creatinine, Serum 3.16 mg/dL 0.6-1.3 mg/dL High July BUN/Creat Ratio 13.6 - - July 23, 2022 Sodium 141 mEq/L 136-145 mEq/L - July 23 HD Adequacy Result Type Result Value Relevant Reference Interpretation Date Range eKt/V 1.28 No Reference range Normal July (Kayleeall) provided spKt/V (Daugirdas 1.52 No Reference range Normal 2021 II) provided Bone/Mineral Result Type Result Value Relevant Reference Interpretation Date Range PTH-Intact, Plasma 165 pg/mL 16 to 80 pg/mL High July 23, 2022 Magnesium 2.2 mg/dL 1.6-2.6 mg/dL - July 23 Corrected Ca x P 46 < 55 - July 23, 2022 Product Calcium, Total 9.7 mg/dL 8.4-10.2 mg/dL - July 23, 2022 Phosphorus 4.8 mg/dL 2.6-4.5 mg/dL High July 23 Ca x P Product 47 < 55 - July 23 Alkaline Phosphatase 82 U/L Males: 40-129 U/L, - O ct2021 > 15 yrs Females: 35 - 104 U/L, > 15 yrs Liver/Nutrition Result Type Result Value Relevant Reference Interpretation Date Range A/G Ratio 1.5 1.0-2.0 - July 23 Globulin (Calc) 2.7 g/dL 1.0 - 2.0 - July 23, 2022 Total Protein 6.8 g/dL 6.0-8.5 g/dL - July 23 Albumin (BCG) 4.1 g/dL 3.5-5.2 g/dL - July 23 Infectious Diseases Result Type Result Value Relevant Reference Interpretation Date Range Hep B Surface Ag Negative Negative - July 23, 2022 (HBsAg) Hep B Surface Ab 76 mIU/mL < 10 mIU/mL, Non- - Octobe r 2021 (anti-HBs) Immune Hep B core Ab Negative Negative - July 23 Total (anti-HBc) DIALYSIS PRESCRIPTION Conventional Hemodialysis Data Element Value Order Date/Time July 02, 2022 Frequency 3X Week Treatment Days MonWedFri Dialyzer 180NRe Optiflux Treatment Time (Total Minutes) 180 min Blood Flow Rate (mL/min) 350 mL/min Dialysate Flow Rate Manual 600 Estimated Dry Weight 71.5 kg Dialysate Concentrate 3.0 K, 2.25 Ca, 1.0 Mg, 100 Dextrose (G3231) Sodium (mEq/L) 138 mEq/L Bicarb Machine Setting (mEq/L) 36 mEq/L Dialysis Access Hemodialysis-CV Catheter-Kodak neled, Chest, Right Jugular IMMUNIZATIONS Vaccine Date Dose Route Status [id number], series June 18, 2022 40.0 mcg Intramuscul ar Completed 3 of 4 HEPLISAV-B April 25, 2022 20.0 mcg Intramuscular Completed TRANSPLANT WAITLIST STATUS No Information on Transplant Waitlist Status DIALYSIS TREATMENTS Conventional Hemodialysis Date Pre-Treatment Post-Treatment Duration BFR Dialysate Dialyzer Dialysis Meds Vitals Vitals (hr) (mL/min) Access Admin July Weight 72.20 Weight 70.30 03:00:00 360 3.0 K, 180nre Hemodia lysis-CV Catheter-Tunneled, Chest, Right Jugular Heparin Sodium (Porcine) 1,000 Units/mL Catheter Lock Arterial; 1600units,Arterial Red Port 2021 kg kg 2.25 Ca, Optiflux Hepar in Sodium (Porcine) 1,000 Units/mL Catheter Lock Venous; 1600units,Venous Blue Port 1.0 Mg, Iron Sucrose (Venofer); 100mg,Intravenous - push 100 Dextrose (G3231) Blood Pressure-sitting 152/87 mmHg Blood Pressure-sitting 12 5/72 mmHg Blood Pressure-standing 165/96 mmHg Blood Pressure-standing 117/53 mmHg Heart Rate 93 beats per Heart Rate 81 beats per minute minute Respiratory Rate 16 breaths per Respiratory Rate 16 breaths per minute minute Temperature 95.0 deg. F Temperature 96.0 deg. F July Weight 71.80 Weight 71.40 03:00:00 360 3.0 K, 180nre Hemodia lysis-CV Catheter-Tunneled, Chest, Right Jugular Heparin Sodium (Porcine) 1,000 Units/mL Catheter Lock Arterial; 1600units,Arterial Red Port 2021 kg kg 2.25 Ca, Optiflux Hepar in Sodium (Porcine) 1,000 Units/mL Catheter Lock Venous; 1600units,Venous Blue Port 1.0 Mg, Iron Sucrose (Venofer); 100mg,Intravenous - push 100 Dextrose (G3231) Blood Pressure-sitting 129/77 mmHg Blood Pressure-sitting 16 3/101 mmHg Blood Pressure-standing 149/84 mmHg Blood Pressure-standing 163/90 mmHg Heart Rate 90 beats per Heart Rate 79 beats per minute minute Respiratory Rate 16 breaths per Respiratory Rate 16 breaths per minute minute Temperature 97.5 deg. F Temperature 97.0 deg. F July Weight 72.50 Weight 71.50 03:00:00 360 3.0 K, 180nre Hemodia lysis-CV Catheter-Tunneled, Chest, Right Jugular Heparin Sodium (Porcine) 1,000 Units/mL Catheter Lock Arterial; 1600units,Arterial Red Port 2021 kg kg 2.25 Ca, Optiflux Hepar in Sodium (Porcine) 1,000 Units/mL Catheter Lock Venous; 1600units,Venous Blue Port 1.0 Mg, Iron Sucrose (Venofer); 100mg,Intravenous - push 100 Dextrose (G3231) Blood Pressure-sitting 131/65 mmHg Blood Pressure-sitting 14 7/87 mmHg Blood Pressure-standing 131/68 mmHg Blood Pressure-standing 132/73 mmHg Heart Rate 91 beats per Heart Rate 77 beats per minute minute Respiratory Rate 16 breaths per Respiratory Rate 16 breaths per minute minute Temperature 96.8 deg. F Temperature 96.0 deg. F
--- OUTSIDE RECORDS SUMMARY | 2022-07-31 13:53 | XMS_ITS | Clinical Summary ---
:1940 Author Organization [facility] [place] [address] Care Team Providers Name Role Phone Marija Ramirez MD Primary Care Provider [phone] [facility], [place] Unavailable Allergies Active Allergy Reactions Severity Noted Date Comments Amlodipine 03/05/2009 Foot swelling Procaine Hives 02/17/2006 Penicillins Hives 02/17/2006 Medications Medication Sig Dispensed Refills Start Date End Date Status TYLENOL ARTHRITIS 650 Takes 1 tablet 0 06/27/2009 Active MG TAB as needed. atorvastatin (LIPITOR) Take 1 Tablet 90 tablet. 3 09/04/2021 Active 40 mg (40 mg) by tabletIndications: mouth once Hyperlipidemia, daily. unspecified hyperlipidemia type apixaban (Eliquis) 2.5 Take 1 Tablet 180 tablet. 3 09/04/2021 Active mg tabletIndications: (2.5 mg) by Transient cerebral mouth 2 times ischemia, unspecified daily. type furosemide (LASIX) 20 Take 2 Tablets 180 tablet. 3 10/03/2021 Active mg tabletIndications: (40 mg) by Chronic renal failure, mouth every stage 3b (HC) morning. Sennosides 8.6 mg cap Take 1 Capsule 0 04/28/2022 Active by mouth in the morning and 1 Capsule in the evening. ascorbic acid, vitamin Take 500 mg by 0 04/28/2022 Active C, 500 mg cap mouth 2 times daily. lansoprazole (PREVACID) Take 1 Capsule 0 06/14/2022 Active 15 mg capsule by mouth once daily. melatonin 10 mg tab Take 1 Tablet 0 06/24/2022 Active (10 mg) by mouth at bedtime. metoprolol tartrate Take 0.5 45 Tablet 3 06/24/2022 Active (LOPRESSOR) 25 mg Tablets (12.5 tabletIndications: mg) by mouth Essential hypertension two times daily. WalkerIndications: Left Walker with 1 Each 0 07/10/2022 Active leg weakness wheels,seat,bryan d brakes,and basket for home use. Active Problems Problem Noted Date Red blood [...] (HC). 04/2017. Hospitalized for th is at [facility] 05/15/2017 Overview: Thought to be secondary to [...] 10/03/2009 11/22/2013 Routine general medical examination at [facility] 009 11/22/2013 facility Overview: Discussed colonoscopy - [...] attac hed> 04/30/2022 Hospital Encounter Lillian Peterson, SENIOR NUCLEAR MEDICINE TECHNOLOGIST P soas abscess, left (HC) 04/30/2022 Travel from Last 3 Months Immunizations Name Administration Dates Next Due AMB INFLUENZA IIV3 (AGE 65+ YRS) PF (Flu Clinic Only) 2017 COVID-19 vaccine (Pfizer-BioNTech 30mcg/0.3mL) PF, 1, 11/15/2020 MDV Hep B [...] Heart Surge ry Aortic aneurysm Father Ronald bonilla1 aneurysm of the aorta Cancer-breast Mother Marisol [...] 09/16/2022 Office Visit Moises Patterson MD [address] [address] (Wo rk) Health Maintenance Due Date Last Done Comments Hepatitis C screening for age 1108/28/1958 18-79 Zoster (shingles) series for age 1108/28/1959 50+ (1 of 2) Tetanus booster 06/27/2019 06/27/2009, 07/03/1995 BMI (ht and wt on same day) for 02/21/2022 02/21/2021, 08/19, age 18+ 08/10/2020, Additional history exists Influenza for age 65+ 06/19/2022 08/16/2021, 08/10/2020, 08/12/2018, Additional history exists COVID-19 vaccine series (5 - 07/25/2022 05/30/2022, 021, Booster for Pfizer series) 12/04/2020, Additiona l history exists Depression screening for age 12+ 06/24/2023 06/24/2022, 03/2022, 03/04/2019, Additional history exists Medicare Wellness for age 65+ 06/24/2023 06/24/2022 Tdap Completed 06/27/2009 (Completed outside of [facility]) Pneumococcal series for age 65+ Completed 12/02/2016, 11/19, 10/03/2009, Additional history exists Goals Goal Patient Goal Associated Recent Patient-Stated? Author Type Problems Progress BLOOD PRESSURE Blood Pressure No Yessenia barrera, - MAINTAINS BP Jami Matute less than 140/90 Medical Devices Implanted Type Area National Account Representative Device Shelf Model / Identifier Expiration Serial / Date Lot Screw Canclls 4.0x15mm [id number] - [id number] Spine SO[employer]AMOR DANEK [id number] / Implanted: Qty: 3 on 02/18/2006 at [facility] Implan ts / Plate 42.5mm Zephir - [id number] SOF[employer]OR DANEK [id number] / Implanted: Qty: 1 on 02/18/2006 at [facility] / Procedures Procedure Name Priority Date/Time [...] PM CDT Uncomplicated CT-guided placement of a 12-Cameroonian Ballard Bah drainage catheter into the left psoas fluid collection. Please note that all CT scans at this [facility] use dose modulation, iterative reconstruction, and/or weight-based dosing when appropriate to reduce radiation dose to as low as reasonably achievable. Dictated by Orin Goff MD @ 2021 3:55:47 PM (Electronically Signed) Narrative 04/30/2022 3:55 PM CDT For Patients: ??As a result of the Cures Act, medical imaging exams and procedure report s are released immediately into your ana ctronic medical record. ??You may view this report [...] hemorrhage and an informed consent was obtained. Canby protocol was observed. Time-out was conducted. With [...] the tract was dilated and a 12- Cameroonian Ballard Bah drainage catheter was placed. At [...] For Patients: As a result of the Cures Act, medical [...] hemorrhage and an informed consent was obtained. Canby protocol was observed. Time-out was conducted. With [...] guidewire the tract was dilated and a 12-Cameroonian Ballard Bah drainage cath eter was placed. [...] IMPRESSION: Uncomplicated CT-guided placement of a 1 2-Cameroonian Ballard Bah drainage catheter into the left psoas fluid collection. Please note that [facility] scans at [facility] use dose modulation, iterative reconstruction, and/or weight-based dosing when appropriate to reduce radiation dose to as low as reasonably achievable. Dictated by Orin Goff MD @ 2021 3:55:47 PM (Electronically Signed) Lillian Peterson NP CT BODY FLUID CULTURE,STAIN (AEROBIC) (04/30/2022 2:21 PM CDT) [facility] Method Time Signature CULTURE No Growth. 05/03/2022 [facility] 9:06 AM CDT LABORATORY-LANI TRAL LABORATORY GRAM STAIN No PMNs 05/03/2022 [facility] 9:06 AM CDT LABORATORY-L[facility] TRAL LABORATORY GRAM STAIN No organisms 05/03/2022 [facility] seen 9:06 AM CDT LABORATORY-LANI TRAL LABORATORY Specimen Anatomical Collection Method Collection Time Receive d Time (Source) Location / / Volume Laterality Body Fluid BODY FLUID Non-Blood / 04/30/2022 2:21 PM 2 2:45 SPECIMEN / Unknown Unknown CDT PM CDT Lillian Peterson NP MICROBIOLOGY Performing Organization Address City/State/ZIP Code Phon e Number [facility] [address] [place] [address] LABORATORY-CENTRAL 2000 LABORATORY ANAEROBIC CULTURE (04/30/2022 2:21 PM CDT) [facility] gist Method Time Signature CULTURE No anaerobes 05/05/2022 [facility] isolated 11:02 AM CDT LABORATORY-LANI TRAL LABORATORY Specimen Anatomical Collection Method Collection Time Receive d Time (Source) Location / / Volume Laterality Other (Other) Non-Blood / 04/30/2022 2:21 PM 04/30/20 22 2:45 Unknown CDT PM CDT Lillian Peterson NP MICROBIOLOGY Performing Organization Address City/[facility]/ZIP Code Phon e Number [facility] [address] [place] [address] LABORATORY-CENTRAL 2000 LABORATORY (ABNORMAL) Platelet Count (04/30/2022 12:15 PM CDT) [facility] Time Signature PLATELET COUNT 208 140 - 440 04/30/2022 [facility] thou/cu mm 12:31 PM CDT LABORATORY-LANI TRAL LABORATORY MPV 11.1 (H) 6.5 - 11.0 04/30/2022 [facility] [employer] fL 12:31 PM CDT LABORATORY-LANI TRAL LABORATORY Specimen Anatomical Collection Method / Collection Time Recei fany Time (Source) Location / Volume Laterality Blood BLOOD SPECIMEN / Venipuncture / 04/30/2022 12:15 04/30 Unknown Unknown PM CDT 12:25 PM CDT Orin AGUIAR HEMATOLOGY Performing Organization Address City/[facility]/ZIP Code Phon e Number [facility] [address] [facility] [place] [address] LABORATORY-CENTRAL 2000 LABORATORY (ABNORMAL) Hemoglobin (04/30/2022 12:15 PM CDT) P athologist Signature HEMOGLOBIN 10.8 (L) 13.5 - 04/30/2022 [facility] 17.5 g/dL 12:31 PM CDT LABORATORY-CENT RAL LABORATORY MCV 94 80 - 100 04/30/2022 [facility] [employer] fL 12:31 PM CDT LABORATORY-CENT RAL LABORATORY Specimen Anatomical Collection Method / Collection Time Recei fany Time (Source) Location / Volume Laterality Blood BLOOD SPECIMEN / Venipuncture / 04/30/2022 12:15 04/30 Unknown Unknown PM CDT 12:25 PM CDT Orin AGUIAR HEMATOLOGY Performing Organization Address City/State/ZIP Code Phon e Number [facility] [address] [place] [address] LABORATORY-CENTRAL 2000 LABORATORY Protime-INR (04/30/2022 12:15 PM CDT) P athologist Signature INR 1.0 <1.3 04/30/2022 [facility] 12:38 PM CDT LABORATORY-CENTR AL LABORATORY PROTIME 13.0 11.8 - 13.9 04/30/2022 [facility] sec 12:38 PM CDT LABORATORY-CENTR AL LABORATORY Specimen Anatomical Collection Method / Collection Time Recei fany Time (Source) Location / Volume Laterality Blood BLOOD SPECIMEN / Venipuncture / 04/30/2022 12:15 04/30 Unknown Unknown PM CDT 12:25 PM CDT Narrative [facility] LABORATORY-CENTRAL LABORAT ORY - 04/30/2022 12:38 PM [...] seconds if the patient is on UFH. Orin Goff BS HEMATOLOGY Performing Organization Address City/State/ZIP Code Phon e Number [facility] [address] [place] [address] LABORATORY-CENTRAL 2000 LABORATORY from Last 3 Months Insurance Payer Benefit Plan / Subscriber ID Effective Dates Phone Addre ss Type Group MEDICARE PART MEDICARE PART [id number] [place] B - [place] USE B HB ONLY [place] [address] [place] [address] MEDICARE PART MEDICARE PART [id number] 2007-[place]: [place] A - [place] USE A HB ONLY nt [address] [place] [address] MEDICARE PPS HC MEDICARE [id number] 2007-Prese PO GERI X 2019 PPS nt [address] [place] [address] BLUE CROSS MR BLUE CROSS [id number] 2016-Presen [address] [address] [place], [place] [id number] BLUE CROSS BLUE CROSS [id number] 2016-[place] [address] [address] [place] [address], [place] [id number] EladioDevonjenniffer Fatuma Personal/Family Self 1940 [address] [facility] (Home) [place] [phone] [place], [place] ([place]) [address] Advance Directives Latest Code Status on File Code Status Date Activated Date Inactivated Comments Full Code 04/30/2022 12:01 PM 05/01/2022 2:22 AM Code Status Discussion: Reviewed Preferences Full Code 02/18/2006 7:54 PM 02/20/2006 1:40 PM Full Code 02/18/2006 4:12 PM 02/18/2006 7:54 PM Full Code 02/18/2006 9:49 AM 02/18/2006 4:12 PM Care Teams Process Improvement Engineer Relationship Specialty Start Date End Date Marija Ramirez MD PCP - General Family Practice 05/13/18 [address] [place] [address] [facility] Services[facility] 06/17/[address] [address]
--- OUTSIDE RECORDS SUMMARY | 2022-07-31 13:54 | XMS_ITS | Encounter Summary ---
:1940 Author Organization [facility] Address [address] [place] [address] Care Team Providers Name Role Phone Unavailable Primary Care Provider Unavailable Encounter Details Date Type Department Care Team Description 05/23/2022 Orders Only [facility] O f Denilson Quinones MD [phone] [place] [address] [place], [place] [phone] (Wo rk) Social History Tobacco Use [...] 05/26/2022 Unless otherwise specified, test(s) performed at: [facility], [address] [place] [address], [place] [address] WORDPRESS DEVELOPER: Raheem Malik M.D., Ph.D For any questions, please call customer service at FREQUENCY:OTHER Resulting Agency Comment Specimen source: Urine Denilson Holly MD LAB URINE ORDERABLES Performing Organization Address [facility] Phon e Number APS SPECTRA [facility] PATIENT INFORMATION (05/23/2022) athologist [facility] Patient BSA 1.75 sq. M. [facility]PS SPECT[facility] Comment: Normalized values are calculated using t he patient's actual BSA and normalized to the average BSA of 1.73m2. Specimen (Source) Anatomical Collection Method Collection Time Re ceived Time Location / / Volume Laterality 05/23/2022 05/26/2022 12:2 5 PM CDT Narrative APS SPECTRA [facility] - 05/26/2022 Unless otherwise specified, test(s) performed at: [facility], [address] [place] [address], [place] [address] WORDPRESS DEVELOPER: Raheem Malik M.D., Ph.D For any questions, please call customer service at FREQUENCY:OTHER Resulting Agency Comment Specimen source: PD Fluid Denilson Holly MD LAB BLOOD ORDERABLES Performing Organization Address City/[facility] Phon e Number APS SPECTRA [facility] [...] 27 mL/min APS SPECTRA 2020 [facility] Comment: [facility] has implemented the recommended eGFR calculation that [...] 05/26/2022 Unless otherwise specified, test(s) performed at: [facility], [address] [place] [address], [place] [address] WORDPRESS DEVELOPER: Raheem Malik M.D., Ph.D For any questions, please call customer service at FREQUENCY:OTHER Resulting Agency Comment Specimen source: Serum Denilson Holly MD LAB [id number] NSOLICITED RESULTS Performing Organization Address City/State/ZIP Code [...] 05/26/2022 Unless otherwise specified, test(s) performed at: [facility], [address] [place] [address], [place] [address] WORDPRESS DEVELOPER: Raheem Malik M.D., Ph.D For any questions, please call customer service at FREQUENCY:OTHER Resulting Agency Comment Specimen source: PD Fluid Denilson Holly MD LAB BLOOD ORDERABLES Performing Organization Address City/State/ZIP Code Phon e Number APS SPECTRA [facility] documented in this encounter Visit Diagnoses Not on filedocumented in this encounter
--- OUTSIDE RECORDS SUMMARY | 2022-07-31 13:54 | XMS_ITS | Encounter Summary ---
:1940 Author Organization [facility] Address [address] [place] [address] Care Team Providers Name Role Phone Unavailable Primary Care Provider Unavailable Encounter Details Date Type Department Care Team Description 06/11/2022 Orders Only [facility] O f Denilson Quinones MD [phone] [place] [address] [place], [place] [phone] (Wo rk) Social History Tobacco Use [...] 06/12/2022 Unless otherwise specified, test(s) performed at: [facility], [address] [place] [address], [place] [address] SOUND SYSTEM INSTALLER: Raheem Malik M.D., Ph.D For any questions, please call customer service at FREQUENCY:OTHER Resulting Agency Comment Specimen source: Blood Denilson Holly MD LAB BLOOD ORDERABLES Performing Organization Address City/State/[facility] Code Phon e Number APS [...] 06/12/2022 Unless otherwise specified, test(s) performed at: [facility], [address] [place], [place] [address]ann [place] [address] SOUND SYSTEM INSTALLER: Raheem Malik M.D., Ph.D For any questions, please call customer service at FREQUENCY:OTHER Resulting Agency Comment Specimen source: Serum Denilson Holly MD LAB BLOOD ORDERABLES Performing Organization Address City/[facility] Code Phon e Number APS SPECTRA [facility] documented in this encounter Visit Diagnoses Not on filedocumented in this encounter
--- OUTSIDE RECORDS SUMMARY | 2022-07-31 13:54 | XMS_ITS | Encounter Summary ---
:1940 Author Organization [facility] Address [address] [place] [address] Care Team Providers Name Role Phone Unavailable Primary Care Provider Unavailable Encounter Details Date Type Department Care Team Description 07/09/2022 Orders Only [facility] O f Denilson Quinones MD [phone] [place] [address] [place], [place] [phone] (Wo rk) Social History Tobacco Use Types Packs/Day Years Used Date Smoking Tobacco: Never Assessed Sex Assigned at Date Recorded Not on file documented as of this encounter Plan of Treatment Not on filedocumented as of this encounter Procedures Procedure Name Priority Date/Time Associated Diagnosis Comme nts HEMATOLOGY Routine 07/09/2022 Results for thi s procedure are in the resu lts section. CHEMISTRY Routine 07/09/2022 Results for thi s procedure are in the resu lts section. documented in this encounter Results (ABNORMAL) HEMATOLOGY (07/09/2022) Analysis Performed At Patho logist Time Signature Hemoglobin 11.3 (L) 14.0 - APS SPECTRA 18.0 g/dL [facility] Hemoglobin x 3 33.9 (L) 42.0 - APS SPECTRA 54.0 % [facility] Specimen (Source) Anatomical Collection Method Collection Time Re ceived Time Location / / Volume Laterality 07/09/2022 07/11/2022 3:18 PM CDT Narrative APS SPECTRA [facility] - 07/11/2022 Unless otherwise specified, test(s) performed at: [facility], [address] [place] [address], [place] [address] WIRELESS TEAM MEMBER: Raheem Malik M.D., Ph.D For any questions, please call customer service at FREQUENCY:OTHER Resulting Agency Comment Specimen source: Blood Denilson Holly MD LAB BLOOD ORDERABLES Performing Organization Address City/State/ZIP Code Phon e Number APS SPECTRA [facility] (ABNORMAL) Spectrae Chemistry (07/09/2022) P athologist Signature BUN 27 (H) 6 - 19 APS SPECTRA mg/dL [facility] Creatinine 2.97 (H) 0.60 - 1.30 APS SPECTRA mg/dL [facility] Comment: Custom Exception BUN/Creatinine Ratio 9.1 (L) 10.0 - 20.0 APS SPE CTRA [...] Time Location / / Volume Laterality 07/09/2022 07/10/2022 7:59 AM CDT Narrative APS SPECTRA [facility] - 07/10/2022 Unless otherwise specified, test(s) performed at: [facility], [address] [place], [place] [address]ann [facility] [address] WIRELESS TEAM MEMBER: Raheem Malik M.D., Ph.D For any questions, please call customer service at FREQUENCY:OTHER Resulting Agency Comment Specimen source: Serum Denilson Holly MD LAB BLOOD ORDERABLES Performing Organization Address City/[facility] Phon e Number APS SPECTRA [facility] documented in this encounter Visit Diagnoses Not on filedocumented in this encounter
--- OUTSIDE RECORDS SUMMARY | 2022-07-31 13:54 | XMS_ITS | Encounter Summary ---
:1940 Author Organization [facility] Address [address] [place] [address] Care Team Providers Name Role Phone Unavailable Primary Care Provider Unavailable Encounter Details Date Type Department Care Team Description 06/04/2022 Orders Only [facility] O f Denilson Quinones MD [phone] [place] [address] [place], [place] [phone] (Wo rk) Social History Tobacco Use [...] 06/05/2022 Unless otherwise specified, test(s) performed at: [facility], [address] [place] [address], [place] [address] TRUCK TRAILER MECHANIC: Raheem Malik M.D., Ph.D For any questions, please call customer service at FREQUENCY:OTHER Resulting Agency Comment Specimen source: Serum Denilson Holly MD LAB BLOOD ORDERABLES Performing Organization Address City/[facility] Phon e Number APS SPECTRA [facility] (ABNORMAL) [...] 06/05/2022 Unless otherwise specified, test(s) performed at: [facility], [address] [place] [address], [place] [address] TRUCK TRAILER MECHANIC: Raheem Malik M.D., Ph.D For any questions, please call customer service at FREQUENCY:OTHER Resulting Agency Comment Specimen source: Blood Denilson Holly MD LAB BLOOD ORDERABLES Performing Organization Address City/[facility] Phon e Number APS SPECTRA [facility] documented in this encounter Visit Diagnoses Not on filedocumented in this encounter
--- OUTSIDE RECORDS SUMMARY | 2022-07-31 13:54 | XMS_ITS | Encounter Summary ---
:1940 Author Organization [facility] Address [address] [place] [address] Care Team Providers Name Role Phone Unavailable Primary Care Provider Unavailable Encounter Details Date Type Department Care Team Description 06/13/2022 Orders Only [facility] O f Denilson Quinones MD [phone] [place] [address] [place], [place] [phone] (Wo rk) Social History Tobacco Use [...] URINE CLEARANCE (06/13/2022) [facility] Time Signature Urea Nitrogen, 177 mg/dL APS [...] 06/14/2022 Unless otherwise specified, test(s) performed at: [facility], [address] [place] [address], [place] [address] GLUE MAKER BONE: Raheem Malik M.D., Ph.D For any questions, please call customer service at FREQUENCY:OTHER Resulting Agency Comment Specimen source: Urine Denilson Holly MD LAB URINE ORDERABLES Performing Organization Address City/[facility] Phon e Number APS SPECTRA [facility] (ABNORMAL) Spectrae Chemistry (06/13/2022) athologist Signature Creatinine 2.31 (H) 0.60 - 1.30 APS SPECTRA mg/dL [facility] Comment: Custom Exception Specimen (Source) Anatomical Collection Method Collection Time Re ceived Time Location / / Volume Laterality 06/13/2022 06/14/2022 2:50 AM CDT Resulting Agency Comment Specimen source: Serum Denilson Holly MD LAB BLOOD ORDERABLES Performing Organization Address [facility] Phon e Number APS SPECTRA [facility] PATIENT [...] 06/14/2022 Unless otherwise specified, test(s) performed at: [facility], [address] [place] [address], [place] [address] GLUE MAKER BONE: Raheem Malik M.D., Ph.D For any questions, please call customer service at FREQUENCY:OTHER Resulting Agency Comment Specimen source: PD Fluid Denilson Holly MD LAB BLOOD ORDERABLES Performing Organization Address [facility] Phon e Number APS SPECTRA [facility] PATIENT [...] 06/14/2022 Unless otherwise specified, test(s) performed at: [facility], [address] [place], [place] [address]ann [place] [address] GLUE MAKER BONE: Raheem Malik M.D., Ph.D For any questions, please call customer service at FREQUENCY:OTHER Resulting Agency Comment Specimen source: PD Fluid Denilson Holly MD LAB BLOOD ORDERABLES Performing Organization Address [facility] Phon e Number APS SPECTRA [facility] documented in this encounter Visit Diagnoses Not on filedocumented in this encounter
--- OUTSIDE RECORDS SUMMARY | 2022-07-31 13:54 | XMS_ITS | Encounter Summary ---
:1940 Author Organization [facility] Address [address] [place] [address] Care Team Providers Name Role Phone Unavailable Primary Care Provider Unavailable Encounter Details Date Type Department Care Team Description 05/28/2022 Treatment [facility] f Denilson Quinones MD [address] [place] [address] [place], [place] [phone] (Wo rk) Social History Tobacco Use Types Packs/Day Years Used Date Smoking Tobacco: Never Assessed Sex Assigned at Date Recorded Not on file documented as of this encounter Miscellaneous Notes Dialysis Note - Denilson Holly MD - 05/28/2022 12:50 PM CDT Date: May 28, 2022 Patient Name: Speedy Hendricks : 1940 Chart #: [id number] Sex: M TUTORING ASSISTANT: Denilson Holly MD LOCATION: [place] [phone] SCHEDULE: M-W- 2nd Shift Chief Complaint: Acute [...] HD, but still requiring HD. Transferred from [place] rehab to [facility], hoping to get home. First Hd here today, dry weight much lower than what they had listed it appears. Med list reviewed from [facility], on midodrine for hypotension with HD. 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 Went to rehab, transferred back to [place] to [facility] for ongoing rehab closer to home. [facility] [place]. His daughter Raquel is ICU/SUPPLY COORDINATOR ([employer] currently) and is very involved. Problem [...] and he is considering. WIll send to [facility] as soon as he accepts Will keep [...]
--- OUTSIDE RECORDS SUMMARY | 2022-07-31 13:54 | XMS_ITS | Clinical Summary ---
:1940 Author Organization [facility] Address [address] [place] [address] Care Team Providers Name Role Phone Unavailable Primary Care Provider Unavailable Encounters Date Type Specialty Care Team Description 07/30/2022 Orders Only NephDenilson Isidro MD 07/30/2022 Treatment Denilson Holly MD 07/23/2022 Orders Only NephDenilson Isidro MD 07/16/2022 Orders Only NephDenilson Isidro MD 07/09/2022 Orders Only NephDenilson Isidro MD 07/09/2022 Treatment Denilson Holly MD 07/02/2022 Orders Only NephDenilson Isidro MD 07/02/2022 Treatment Denilson Holly MD 06/25/2022 Orders Only NephDenilson Isidro MD 06/18/2022 Orders Only NephDenilson Isidro MD 06/13/2022 Orders Only NephDenilson Isidro MD 06/11/2022 Orders Only NephDenilson Isidro MD 06/11/2022 Denilson Ordonez MD 06/04/2022 Orders Only NephDenilson Isidro MD 05/28/2022 Orders Only NephDenilson Isidro MD 05/28/2022 Treatment Denilson Holly MD 05/23/2022 Orders Only NephDenilson Isidro MD 05/21/2022 Orders Only NephDenilson Isidro MD 05/19/2022 Orders Only NephDenilson Isidro MD 05/14/2022 Orders Only NephDenilson Isidro MD 05/14/2022 Treatment Denilson Holly MD 05/07/2022 Orders Only NephDenilson Isidro MD 05/02/2022 Orders Only NephDenilson Isidro MD from Last 3 Months [...] Date/Time Associated Diagnosis Comme nts HEMATOLOGY Routine 07/30/2022 Results for thi s procedure are i n the results section . SPECTRA JALEEL LAB RESULTS Routine 07/23/2022 Resul ts for this procedure are i n the results section . HD KINETICS Routine 07/23/2022 Results for thi s procedure are i n the results section . CHEMISTRY Routine 07/23/2022 Results for thi s procedure are i n the results section . POST CHEMISTRY Routine 07/23/2022 Results for t his procedure are i n the results section . IMMUNO CHEMISTRY Routine 07/23/2022 Results for this procedure are i n the results section . CHEMISTRY Routine 07/23/2022 Results for thi s procedure are i n the results section . HEMATOLOGY Routine 07/23/2022 Results for thi s procedure are i n the results section . HEMATOLOGY Routine 07/16/2022 Results for thi s procedure are i n the results section . CHEMISTRY Routine 07/16/2022 Results for thi s [...] from Last 3 Months Results (ABNORMAL) HEMATOLOGY (07/30/2022)Only the most recent of14 resultswithin the time period is included. Analysis Performed At Patho logist Time Signature Hemoglobin 11.8 (L) 14.0 - [facility] 18.0 g/dL [facility] Hemoglobin x 3 35.4 (L) 42.0 - [facility] 54.0 % [facility] Specimen (Source) Anatomical Collection Method Collection Time Re ceived Time Location / / Volume Laterality 07/30/2022 07/31/2022 6:31 AM CDT Narrative [facility]PECT[facility] - 07/31/2022 Unless otherwise specified, test(s) performed at: [facility], [address] [place] [address] gideon [facility] [address] LAYUP WORKER: Raheem Malik M.D., Ph.D For any questions, please call customer service at FREQUENCY:OTHER Resulting Agency Comment Specimen source: Blood Denilson Holly MD LAB BLOOD ORDERABLES Performing Organization Address City/[facility] Phon e Number [facility] HD KINETICS (07/23/2022)Only the most recent of3 resultswithin the time period is included. P athologist Signature % Urea 74 65 - 80 % [facility] Reduction [facility] Specimen (Source) Anatomical Collection Method Collection Time Re ceived Time Location / / Volume Laterality 07/23/2022 07/24/2022 10:4 0 AM CDT Narrative [facility]PS [facility]PECT[facility] - 07/24/2022 Unless otherwise specified, test(s) performed at: [facility], [address] [place] [address], [place] [address] LAYUP WORKER: Raheem Malik M.D., Ph.D For any questions, please call customer service at FREQUENCY:MONTHLY Resulting Agency Comment Specimen source: Plasma Denilson Holly MD LAB BLOOD ORDERABLES Performing Organization Address [facility] Phon e Number [facility] POST CHEMISTRY (07/23/2022)Only the most recent of3 resultswithin the time period is included. P athologist Signature BUN Post 11 6 - 19 [facility] Dialysis mg/dL [facility] Specimen (Source) Anatomical Collection Method Collection Time Re ceived Time Location / / Volume Laterality 07/23/2022 07/24/2022 10:4 0 AM CDT Narrative [facility]PS SPECTRA [facility] - 07/24/2022 Unless otherwise specified, test(s) performed at: [facility], [address] [place] [address], [place] [address] LAYUP WORKER: Raheem Malik M.D., Ph.D For any questions, please call customer service at FREQUENCY:MONTHLY Resulting Agency Comment Specimen source: Plasma Denilson Holly MD LAB BLOOD ORDERABLES Performing Organization Address City/[facility] Phon e Number [facility] IMMUNO CHEMISTRY (07/23/2022)Only the most recent of3 resultswithin the time period is included. P athologist Signature Hep B Surface Negative Negative [facility] Ag [facility] Hepatitis B 76 mIU/mL [facility] Surface Ab [facility] Comment: [...] to MMWR October 07, 2013/Vol.62 (No. 10); -. Reference Range: <10 mIU/mL ? Non-Immune >=10 mIU/mL ?Immune The magnitude of the measured result abo ve 10 mIU/mL is not indicative of the total amount of antibody present. Hep B Core Total Ab Negative Negative [facility]PS SPECTR A [facility] Comment: Hep B Core Ab, Total appears during the acute infection stage and remains reactive/positive throughout the recovery stage. Please note, effective 07/14/2022, the a damaris test result was obtained using the [employer] Liaison XL chemilumin escent method. Results obtained with different assay methods or kits can not be used interchangeably. Specimen (Source) Anatomical Collection Method Collection Time Re ceived Time Location / / Volume Laterality 07/23/2022 07/24/2022 10:3 0 AM CDT Resulting Agency Comment Specimen source: Plasma Denilson Holly MD LAB BLOOD ORDERABLES Performing Organization Address City/State/ZIP Code Phon e Number [facility]PS [facility]RA [facility] (ABNORMAL) Spectrae Chemistry (07/23/2022)Only the most recent of17 results within the time period is included. Patholo gist Method Time Signature BUN 43 (H) 6 - 19 [facility] mg/dL [facility] Creatinine 3.16 (H) 0.60 - [facility] 1.30 mg/dL [facility] BUN/Creatinine 13.6 10.0 - [facility] Ratio 20.0 [facility] Sodium 141 136 - 145 [facility] mEq/L [facility] Potassium 4.4 3.5 - 5.1 [facility] mEq/L [facility] Chloride 102 96 - 108 [facility] mEq/L [facility] Bicarbonate 24 20 - 31 [facility] (CO2) mEq/L [facility] Comment: Please note change in reference range. Calcium 9.7 8.7 - 10.4 mg/dL [facility] Comment: Please note change in reference range. Corrected Calcium 9.6 8.7 - 10.4 mg/dL APS S PECTRA [facility] Comment: Corrected Calcium is not equivalent to m easured Ionized Calcium. Phosphorus 4.8 (H) 2.6 - 4.5 mg/dL [facility]PECT[facility] Calcium Phosphorus Product 47 0 - 54 [facility] Calcium Phosporus Product, Cor 46 0 - 54 [facility] Alkaline Phosphatase 82 40 - 129 U/L APS SP ECTRA [facility] Total Protein 6.8 6.0 - 8.5 g/dL [facility] Albumin 4.1 3.5 - 5.2 g/dL [facility] Globulin, Total 2.7 2.0 - 4.0 g/dL APS SPECT RA [facility] A/G Ratio 1.5 1.0 - 2.0 [facility] Magnesium 2.2 1.6 - 2.6 mg/dL [facility] Ferritin 864 (H) 22 - 322 ng/mL [facility] Iron 93 45 - 160 mcg/dL [facility] UIBC 155 155 - 355 mcg/dL [facility]PECT[facility] TIBC 248 185 - 515 mcg/dL APS SPECTRA [facility] Iron Saturation (TSat) 38 20 - 55 % APS SPE CTRA [facility] Specimen (Source) Anatomical Collection Method Collection Time Re ceived Time Location / / Volume Laterality 07/23/2022 07/24/2022 7:03 AM CDT Narrative APS SPECTRA [facility] - 07/24/2022 Unless otherwise specified, test(s) performed at: [facility], [address] [place] [address], [place] [address] LAYUP WORKER: Raheem Malik M.D., Ph.D For any questions, please call customer service at FREQUENCY:MONTHLY Resulting Agency Comment Specimen source: Serum Denilson Holly MD LAB BLOOD ORDERABLES Performing Organization Address City/State/ZIP Code Phon e Number APS SPECTRA [facility] Spectra JALEEL Lab Results (07/23/2022)Only the most recent of3 resultswithin the time period is included. P athologist Signature PCR 35.95 JALEEL nPCR_HD 0.88 JALEEL eKt/V Gotch 1.28 JALEEL eKt/V 1.28 JALEEL ([place]) spKt/V 1.52 JALEEL ([place]ird[place] II) eNPCR 0.78 JALEEL eKdrt/V 1.42 JALEEL spKt/V Gotch 1.56 JALEEL Specimen (Source) Anatomical Location Collection Method / Collectio n Time Received Time / Laterality Volume 07/23/2022 07/23/2022 Jaleel Ordering Provider LAB BLOOD ORDERABLES Performing Organization Address City/[facility]/ZIP Code Phon e Number JALEEL (ABNORMAL) URINE [...] 06/14/2022 Unless otherwise specified, test(s) performed at: [facility], [address] [place] [address] gideon [facility] [address] LAYUP WORKER: Raheem Malik M.D., Ph.D For any questions, please call customer service at FREQUENCY:OTHER Resulting Agency Comment Specimen source: Urine Denilson Holly MD LAB URINE ORDERABLES Performing Organization Address City/[facility]/ZIP Code Phon e Number [facility] PATIENT INFORMATION (06/13/2022)Only the most recent of6 resultswithin the time period is included. [facility] Patient BSA 1.77 sq. M. [facility] SPECTRA [facility] Comment: Normalized values are calculated using t he patient's actual BSA and normalized to the average BSA of 1.73m2. Specimen (Source) Anatomical Collection Method Collection Time Re ceived Time Location / / Volume Laterality 06/13/2022 06/14/2022 2:50 AM CDT Narrative [facility] SPECTRA [facility] - 06/14/2022 Unless otherwise specified, test(s) performed at: [facility], [address] [place] [address], [place] [address] LAYUP WORKER: Raheem Malik M.D., Ph.D For any questions, please call customer service at FREQUENCY:OTHER Resulting Agency Comment Specimen source: PD Fluid Denilson Holly MD LAB BLOOD ORDERABLES Performing Organization Address [facility] Phon e Number [facility] GFR (05/28/2022)Only the most recent of7 resultswithin the time period is included. [facility] eGFR CKD-EPI CR 30 mL/min [facility] 2020 [facility] Comment: [facility] has implemented the recommended eGFR calculation that [...] Laterality 05/28/2022 05/29/2022 2:27 PM CDT Narrative [facility] SPECTRA [facility] - 05/29/2022 Unless otherwise specified, test(s) performed at: [facility], [address], [place] [address] LAYUP WORKER: Raheem Malik M.D., Ph.D For any questions, please call customer service at FREQUENCY:OTHER Resulting Agency Comment Specimen source: Serum Denilson Holly MD LAB [id number] NSOLICITED RESULTS Performing Organization Address City/State/ZIP Code Phon e Number APS SPECTRA [facility] from Last 3 Months Insurance Payer Benefit Plan / Subscriber ID Effective Dates Phone Addre ss Type Group [place] [id number] 2016-Present [phone] [address] [id number] ([id number]) [place] [address]
--- OUTSIDE RECORDS SUMMARY | 2022-07-31 13:54 | XMS_ITS | Encounter Summary ---
:1940 Author Organization [facility] Address [address] [place] [address] Care Team Providers Name Role Phone Unavailable Primary Care Provider Unavailable Encounter Details Date Type Department Care Team Description 05/19/2022 Orders Only [facility] O f Denilson Quinones MD [phone] [place] [address] [place], [place] [phone] (Wo rk) Social History Tobacco Use [...] 24 mL/min [facility] 2020 [facility] Comment: [employer] has implemented the recommended eGFR calculation that [...] 05/20/2022 Unless otherwise specified, test(s) performed at: [employer], [address]ideon [facility] [place] [address] JEWELRY TECHNICIAN: Raheem Malik M.D., Ph.D For any questions, please call customer service at FREQUENCY:OTHER Resulting Agency Comment Specimen source: Serum Denilson Holly MD LAB [id number] NSOLICITED RESULTS Performing Organization Address City/[facility] Phon e Number APS SPECTRA [facility] [...] 05/20/2022 Unless otherwise specified, test(s) performed at: [employer] [facility], [address] [facility] [place] [address] JEWELRY TECHNICIAN: Raheem Malik M.D., Ph.D For any questions, please call customer service at FREQUENCY:OTHER Resulting Agency Comment Specimen source: PD Fluid Denilson Holly MD LAB BLOOD ORDERABLES Performing Organization Address City/[facility] Phon e Number [facility]PECT[facility] documented in this encounter Visit Diagnoses Not on filedocumented in this encounter
--- OUTSIDE RECORDS SUMMARY | 2022-07-31 13:54 | XMS_ITS | Encounter Summary ---
:1940 Author Organization [facility] Address [address] [place] [address] Care Team Providers Name Role Phone Unavailable Primary Care Provider Unavailable Encounter Details Date Type Department Care Team Description 05/14/2022 Treatment [facility] O f Denilson Quinones MD [address] [place] [address] [place], [place] [phone] (Wo rk) Social History Tobacco Use Types Packs/Day Years Used Date Smoking Tobacco: Never Assessed Sex Assigned at Date Recorded Not on file documented as of this encounter Miscellaneous Notes Dialysis Note - Denilson Holly MD - 05/14/2022 1:29 PM CDT Date: May 14, 2022 Patient Name: Speedy Hendricks : 1940 Chart #: [id number] Sex: M DIRECTOR GIFT: Denilson Holly MD LOCATION: [place] [phone] SCHEDULE: M-W-F 2nd Shift Chief Complaint: Acute [...] HD, but still requiring HD. Transferred from [place] rehab to [facility] here, hoping to get home. [facility] here today, dry weight much lower than what they had listed it appears. Med list reviewed from [facility], on midodrine for hypotension with HD. 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 Went to rehab, transferred back to [place] to [facility] for ongoing rehab closer to home. He has [facility] and in [place]. His daughter Raquel is ICU/MANAGER NET (ramone currently) and is very involved. Problem [...] procaine Unknown Med list reviewed from [facility] Adequacy & Blood Pressure: spKt/V Gotch [...]
--- OUTSIDE RECORDS SUMMARY | 2022-07-31 13:54 | XMS_ITS | Encounter Summary ---
:1940 Author Organization [facility] Address [address] [place] [address] Care Team Providers Name Role Phone Unavailable Primary Care Provider Unavailable Encounter Details Date Type Department Care Team Description 07/09/2022 Treatment [facility] O Denilson Chand MD [address] [place] [address] [place], [place] [phone] (Wo rk) Social History Tobacco Use Types Packs/Day Years Used Date Smoking Tobacco: Never Assessed Sex Assigned at Date Recorded Not on file documented as of this encounter Miscellaneous Notes Dialysis Note - Denilson Holly MD - 07/09/2022 12:48 PM CDT Date: Jul 09, 2022 Patient Name: Speedy Hendricks : 1940 Chart #: [id number] Sex: M This patient was personally seen [...] PM ) BP (sit): 131/80 AP(-) / REGULATED PROGRAM MANAGER: 152/102 Pulse: 89 Chairside data as of [...] 03:00 Actual Treatment Time 03:01 03:00 03:[address] ATTENDANT: Denilson Holly MD LOCATION: [place] [phone] SCHEDULE: M-W- 2nd Shift EDW: kg. DIALYZER: [...] of access: PCAD Access placement scheduled at [facility] in July Anemia [...] at goal. Intact PTH is below goal. Bulb Assembler will adjust binders and vitamin D per [...] Name: Speedy Hendricks : 1940 Chart #: [id number] Sex: M Patient Type: ESRD Modality: Hemodialysis Battery Tester Field: Denilson Holly MD Location: [place] [address] Schedule: -W- 2nd Shift Initial Access Date Regular Chronic Dialysis Began: 01/08/2022Initial Modality: Hemodialysis Initial Access used on first patient dialysis: Catheter - No Reason Selected Current Access Access used for current outpatient dialysis: Catheter - No Reason Selected Most recent History and Physical: 07/02/2022 Denilson oHlly MD [ Signed And locked electronically On 07/09/2022 at 10:52:04 AM ] Transcribed: Denilson Holly MD ( 07/09/2022 ) documented in this encounter Plan of Treatment Not on filedocumented as of this encounter Visit Diagnoses Not on filedocumented in this encounter
--- OUTSIDE RECORDS SUMMARY | 2022-07-31 13:54 | XMS_ITS | Encounter Summary ---
:1940 Author Organization [facility] Address [address] [place] [address] Care Team Providers Name Role Phone Unavailable Primary Care Provider Unavailable Encounter Details Date Type Department Care Team Description 06/18/2022 Orders Only [facility] O f Denilson Quinones MD [phone] [place] [address] [place], [place] [phone] (Wo rk) Social History Tobacco Use [...] 06/19/2022 Unless otherwise specified, test(s) performed at: [facility], [address] [place] [address], [place] [address] AUTO CAMP ATTENDANT: Raheem Malik M.D., Ph.D For any questions, [...] 06/19/2022 Unless otherwise specified, test(s) performed at: [facility], [address] [place], [place] [address]ann [facility] [place] [address] AUTO CAMP ATTENDANT: Raheem Malik M.D., Ph.D For any questions, please call customer service at FREQUENCY:OTHER Resulting Agency Comment Specimen source: Serum Denilson Holly MD LAB BLOOD ORDERABLES Performing Organization Address City/State/[facility] Code Phon e Number [facility] documented in this encounter Visit Diagnoses Not on filedocumented in this encounter
--- OUTSIDE RECORDS SUMMARY | 2022-07-31 13:54 | XMS_ITS | Encounter Summary ---
:1940 Author Organization [facility] Address [address] [place] [address] Care Team Providers Name Role Phone Unavailable Primary Care Provider Unavailable Encounter Details Date Type Department Care Team Description 05/14/2022 Orders Only [facility] O f Denilson Quinones MD [phone] [place] [address] [place], [place] [phone] (Wo rk) Social History Tobacco Use [...] 05/15/2022 Unless otherwise specified, test(s) performed at: [facility], [address] [place] [address] gideon [place] [address] ACCOUNTING SUPPORT SPECIALIST: Raheem Malik M.D., Ph.D For any [...] MD LAB BLOOD ORDERABLES Performing Organization Address City/[facility]/ZIP Code Phon e Number [facility] GFR (05/14/2022) P athologist Signature eGFR CKD-EPI CR 24 mL/min [facility] 2020 [facility] Comment: [facility] has implemented the recommended eGFR calculation that [...] 05/15/2022 Unless otherwise specified, test(s) performed at: [facility], [address] [place] [address] [place] [address] ACCOUNTING SUPPORT SPECIALIST: Raheem Malik M.D., Ph.D For any questions, please call customer service at FREQUENCY:OTHER Resulting Agency Comment Specimen source: Serum Denilson Holly MD LAB [id number] NSOLICITED RESULTS Performing Organization Address City/State/ZIP Code Phon e Number [facility] documented in this encounter Visit Diagnoses Not on filedocumented in this encounter
--- OUTSIDE RECORDS SUMMARY | 2022-07-31 13:54 | XMS_ITS | Encounter Summary ---
:1940 Author Organization [facility] Address [address] [place] [address] Care Team Providers Name Role Phone Unavailable Primary Care Provider Unavailable Encounter Details Date Type Department Care Team Description 07/02/2022 Treatment [facility] f Denilson Quinones MD [address] [place] [address] [place], [place] [phone] (Wo rk) Social History Tobacco Use Types Packs/Day Years Used Date Smoking Tobacco: Never Assessed Sex Assigned at Date Recorded Not on file documented as of this encounter Miscellaneous Notes Dialysis Note - Denilson Holly MD - 07/02/2022 1:41 PM CDT Date: Jul 02, 2022 Patient Name: Speedy Hendricks : 1940 Chart #: [id number] Sex: M TECHNICAL INFORMATION SPECIALIST: Denilson Holly MD LOCATION: [place] [phone] SCHEDULE: M-W-F 2nd Shift Chief Complaint: Acute kidney injury. The patient complains of the following - 07/02: He remains hesitant about access but ok if we schedule [place] graft [place] [facility] [place] discussing again with him and both [...] requiring HD. Transferred from [place] rehab to [facility] here, hoping to [...] removed). Went to rehab, transferred back to [place] to [facility] for ongoing rehab [facility] to [place]. [facility] [place] His daughter Raquel is ICU/CASING SPLITTER (ramone currently) and is very involved. Problem [...] - Tunneled AVG to be scheduled at [facility] Anemia: HEMOGLOBIN (G/DL) IN BLOOD g/dL 11.1 [...]
--- OUTSIDE RECORDS SUMMARY | 2022-07-31 13:54 | XMS_ITS | Encounter Summary ---
:1940 Author Organization [facility] Address [address] [place] [address] Care Team Providers Name Role Phone Unavailable Primary Care Provider Unavailable Encounter Details Date Type Department Care Team Description 07/30/2022 Orders Only [facility] O f Denilson Quinones MD [phone] [place] [address] [place], [place] [phone] (Wo rk) Social History Tobacco Use Types Packs/Day Years Used Date Smoking Tobacco: Never Assessed Sex Assigned at Date Recorded Not on file documented as of this encounter Plan of Treatment Not on filedocumented as of this encounter Procedures Procedure Name Priority Date/Time Associated Diagnosis Comme nts HEMATOLOGY Routine 07/30/2022 Results for thi s procedure are in the resu lts section. documented in this encounter Results (ABNORMAL) HEMATOLOGY (07/30/2022) Analysis Performed At Patho logist Time Signature Hemoglobin 11.8 (L) 14.0 - [facility] 18.0 g/dL [facility] Hemoglobin x 3 35.4 (L) 42.0 - [facility] 54.0 % [facility] Specimen (Source) Anatomical Collection Method Collection Time Re ceived Time Location / / Volume Laterality 07/30/2022 07/31/2022 6:31 AM CDT Narrative [facility] - 07/31/2022 Unless otherwise specified, test(s) performed at: [facility], [address] [place] [address], [place] [address] SMALL ENGINE MECHANIC: Raheem Malik M.D., Ph.D For any questions, please call customer service at FREQUENCY:OTHER Resulting Agency Comment Specimen source: Blood Denilson Holly MD LAB BLOOD ORDERABLES Performing Organization Address City/State/ZIP Code Phon e Number [facility] documented in this encounter Visit Diagnoses Not on filedocumented in this encounter
--- OUTSIDE RECORDS SUMMARY | 2022-07-31 13:54 | XMS_ITS | Encounter Summary ---
:1940 Author Organization [facility] Address [address] [place] [address] Care Team Providers Name Role Phone Unavailable Primary Care Provider Unavailable Encounter Details Date Type Department Care Team Description 05/28/2022 Orders Only [facility] O f Denilson Quinones MD [phone] [place] [address] [place], [place] [phone] (Wo rk) Social History Tobacco Use [...] MD LAB BLOOD ORDERABLES Performing Organization Address City/[facility] Code Phon e Number APS SPECTRA [facility] GFR (05/28/2022) P athologist Signature eGFR CKD-EPI CR 30 mL/min APS SPECTRA 2020 [facility] Comment: [facility] has implemented the recommended eGFR calculation that [...] 05/29/2022 Unless otherwise specified, test(s) performed at: [facility], [address] [place] [address], [place] [address] CLICKER OPERATOR: Raheem Malik M.D., Ph.D For any questions, please call customer service at FREQUENCY:OTHER Resulting Agency Comment Specimen source: Serum Denilson Holly MD LAB [id number] NSOLICITED RESULTS Performing Organization Address City/[facility] Code Phon e Number APS SPECTRA [facility] [...] 05/29/2022 Unless otherwise specified, test(s) performed at: [facility], [address] [place] [address], [place] [address] CLICKER OPERATOR: Raheem Malik M.D., Ph.D For any questions, please call customer service at FREQUENCY:OTHER Resulting Agency Comment Specimen source: Blood Denilson Holly MD LAB BLOOD ORDERABLES Performing Organization Address City/State/ZIP Code Phon e Number APS SPECTRA [facility] documented in this encounter Visit Diagnoses Not on filedocumented in this encounter
--- OUTSIDE RECORDS SUMMARY | 2022-07-31 13:54 | XMS_ITS | Encounter Summary ---
:1940 Author Organization [facility] Address [address] [place] [address] Care Team Providers Name Role Phone Unavailable Primary Care Provider Unavailable Encounter Details Date Type Department Care Team Description 05/07/2022 Orders Only [facility] O f Denilson Quinones MD [phone] [place] [address] [place], [place] [phone] (Wo rk) Social History Tobacco Use [...] BLOOD ORDERABLES Performing Organization Address City/[facility] Code Phon e Number APS SPECTRA [facility] GFR (05/07/2022) P athologist Signature eGFR CKD-EPI CR 30 mL/min APS SPECTRA 2020 [facility] Comment: [facility] has implemented the recommended eGFR calculation that [...] 05/08/2022 Unless otherwise specified, test(s) performed at: [facility], [address] [place] [address], [place] [address] ELECTRONICS ENGINEER: Raheem Malik M.D., Ph.D For any questions, please call customer service at FREQUENCY:OTHER Resulting Agency Comment Specimen source: Serum Denilson Holly MD LAB [id number] NSOLICITED RESULTS Performing Organization Address City/[facility] Code Phon e Number APS SPECTRA [...] 05/08/2022 Unless otherwise specified, test(s) performed at: [facility], [address] [place] [address], [place] [address] ELECTRONICS ENGINEER: Raheem Malik M.D., Ph.D For any questions, please call customer service at FREQUENCY:OTHER Resulting Agency Comment Specimen source: Blood Denilson Holly MD LAB BLOOD ORDERABLES Performing Organization Address City/State/ZIP Code Phon e Number APS SPECTRA [facility] documented in this encounter Visit Diagnoses Not on filedocumented in this encounter
--- OUTSIDE RECORDS SUMMARY | 2022-07-31 13:54 | XMS_ITS | Encounter Summary ---
:1940 Author Organization [facility] Address [address] [place] [address] Care Team Providers Name Role Phone Unavailable Primary Care Provider Unavailable Encounter Details Date Type Department Care Team Description 06/11/2022 Treatment [facility] O f Denilson Quinones MD [address] [place] [address] [place], [place] [phone] (Wo rk) Social History Tobacco Use Types Packs/Day Years Used Date Smoking Tobacco: Never Assessed Sex Assigned at Date Recorded Not on file documented as of this encounter Miscellaneous Notes Dialysis Note - Denilson Holly MD - 06/11/2022 3:02 PM CDT Date: Jun 11, 2022 Patient Name: Speedy Hendricks : 1940 Chart #: [id number] Sex: M RADARMAN: Denilson Holly MD LOCATION: [place] [phone] SCHEDULE: M-W-F 2nd Shift Chief Complaint: Acute [...] requiring HD. Transferred from [place] rehab to [facility] here, hoping to get home. First Hd here today, dry weight much lower than what they had listed it appears. Med list reviewed from [facility], on midodrine for hypotension with HD. [...] removed). Went to rehab, transferred back to [place] to [facility] for ongoing rehab closer to home. [facility] [place] His daughter Raquel is ICU/BILLBOARD MECHANIC ([employer]one currently) and is very involved. [...] and he is considering. WIll send to [facility] as soon as he accepts Will keep [...]
--- OUTSIDE RECORDS SUMMARY | 2022-07-31 13:54 | XMS_ITS | Encounter Summary ---
:1940 Author Organization [facility] Address [address] [place] [address] Care Team Providers Name Role Phone Unavailable Primary Care Provider Unavailable Encounter Details Date Type Department Care Team Description 07/02/2022 Orders Only [facility] O f Denilson Quinones MD [phone] [place] [address] [place], [place] [phone] (Wo rk) Social History Tobacco Use Types Packs/Day Years Used Date Smoking Tobacco: Never Assessed Sex Assigned at Date Recorded Not on file documented as of this encounter Plan of Treatment Not on filedocumented as of this encounter Procedures Procedure Name Priority Date/Time Associated Diagnosis Comme nts HEMATOLOGY Routine 07/02/2022 Results for thi s procedure are in the resu lts section. CHEMISTRY Routine 07/02/2022 Results for thi s procedure are in the resu lts section. documented in this encounter Results (ABNORMAL) Spectrae Chemistry (07/02/2022) [facility] gist Method Time Signature Sodium 140 136 - 145 APS SPECTRA mEq/L [facility] Potassium 4.0 3.5 - 5.1 APS SPECTRA mEq/L [facility] Chloride 101 96 - 108 APS SPECTRA mEq/L [facility] Bicarbonate 28 20 - 31 APS SPECTRA (CO2) mEq/L [facility] BUN 28 (H) 6 - 19 APS SPECTRA mg/dL [facility] Creatinine 3.00 (H) 0.60 - APS SPECTRA 1.30 mg/dL [facility] Comment: Custom Exception BUN/Creatinine Ratio 9.3 (L) 10.0 - 20.0 APS SPE CTRA [facility] Specimen (Source) Anatomical Collection Method Collection Time Re ceived Time Location / / Volume Laterality 07/02/2022 07/03/2022 5:40 PM CDT Narrative APS SPECTRA [facility] - 07/03/2022 Unless otherwise specified, test(s) performed at: [facility], [address] [place] [address], [place] [address] EBAY RESELLER: Raheem Malik M.D., Ph.D For any questions, please call customer service at FREQUENCY:OTHER Resulting Agency Comment Specimen source: Serum Denilson Holly MD LAB BLOOD ORDERABLES Performing Organization Address City/[facility] Phon e Number APS SPECTRA [facility] (ABNORMAL) HEMATOLOGY (07/02/2022) Analysis Performed At Patho logist Time Signature Hemoglobin 11.6 (L) 14.0 - APS SPECTRA 18.0 g/dL [facility] Hemoglobin x 3 34.8 (L) 42.0 - APS SPECTRA 54.0 % [facility] Specimen (Source) Anatomical Collection Method Collection Time Re ceived Time Location / / Volume Laterality 07/02/2022 07/03/2022 2:44 PM CDT Narrative APS SPECTRA [facility] - 07/03/2022 Unless otherwise specified, test(s) performed at: [facility], [address] [place] [address], [place] [address] EBAY RESELLER: Raheem Malik M.D., Ph.D For any questions, please call customer service at FREQUENCY:OTHER Resulting Agency Comment Specimen source: Blood Denilson Holly MD LAB BLOOD ORDERABLES Performing Organization Address City/[facility] Phon e Number APS SPECTRA [facility] documented in this encounter Visit Diagnoses Not on filedocumented in this encounter
--- OUTSIDE RECORDS SUMMARY | 2022-07-31 13:54 | XMS_ITS | Encounter Summary ---
:1940 Author Organization [facility] Address [address] [place] [address] Care Team Providers Name Role Phone Unavailable Primary Care Provider Unavailable Encounter Details Date Type Department Care Team Description 07/16/2022 Orders Only [facility] O f Denilson Quinones MD [address] [place] [address] [place], [place] [phone] (Wo rk) Social History Tobacco Use Types Packs/Day Years Used Date Smoking Tobacco: Never Assessed Sex Assigned at Date Recorded Not on file documented as of this encounter Plan of Treatment Not on filedocumented as of this encounter Procedures Procedure Name Priority Date/Time Associated Diagnosis Comme nts HEMATOLOGY Routine 07/16/2022 Results for thi s procedure are in the resu lts section. CHEMISTRY Routine 07/16/2022 Results for thi s procedure are in the resu lts section. documented in this encounter Results (ABNORMAL) HEMATOLOGY (07/16/2022) Analysis Performed At Patho logist Time Signature Hemoglobin 11.2 (L) 14.0 - APS SPECTRA 18.0 g/dL [facility] Hemoglobin x 3 33.6 (L) 42.0 - APS SPECTRA 54.0 % [facility] Specimen (Source) Anatomical Collection Method Collection Time Re ceived Time Location / / Volume Laterality 07/16/2022 07/17/2022 11:3 1 AM CDT Narrative APS SPECTRA [facility] - 07/17/2022 Unless otherwise specified, test(s) performed at: [facility], [address] [place] [address], [place] [address] INVESTIGATOR WELFARE: Raheem Malik M.D., Ph.D For any questions, please call customer service at FREQUENCY:OTHER Resulting Agency Comment Specimen source: Blood Denilson Holly MD LAB BLOOD ORDERABLES Performing Organization Address City/[facility] Code Phon e Number APS SPECTRA [facility] (ABNORMAL) Spectrae Chemistry (07/16/2022) P athologist Signature [...] 07/17/2022 Unless otherwise specified, test(s) performed at: [facility], [address] [place], [place] [address]ann [place] [address] INVESTIGATOR WELFARE: Raheem Malik M.D., Ph.D For any questions, please call customer service at FREQUENCY:OTHER Resulting Agency Comment Specimen source: Serum Denilson Holly MD LAB BLOOD ORDERABLES Performing Organization Address City/[facility] Phon e Number APS SPECTRA [facility] documented in this encounter Visit Diagnoses Not on filedocumented in this encounter
--- OUTSIDE RECORDS SUMMARY | 2022-07-31 13:54 | XMS_ITS | Encounter Summary ---
:1940 Author Organization [facility] Address [address] [place] [address] Care Team Providers Name Role Phone Unavailable Primary Care Provider Unavailable Encounter Details Date Type Department Care Team Description 05/21/2022 Orders Only [facility] O f Denilson Quinones MD [phone] [place] [address] [place], [place] [phone] (Wo rk) Social History Tobacco Use [...] 05/27/2022 Unless otherwise specified, test(s) performed at: [facility], [address] [place] [address], [place] [address] BLENDING MACHINE OPERATOR: Raheem Malik M.D., Ph.D For any [...] 24 mL/min APS SPECTRA 2020 [facility] Comment: [facility] has implemented the recommended eGFR calculation that [...] 05/27/2022 Unless otherwise specified, test(s) performed at: [facility], [facility] [place] [place] [address] BLENDING MACHINE OPERATOR: Raheem Malik M.D., Ph.D For any questions, please call customer service at FREQUENCY:MONTHLY Resulting Agency Comment Specimen source: Serum Denilson Holly MD LAB [id number] NSOLICITED RESULTS Performing Organization Address City/State/[facility] Code Phon e Number APS SPECTRA [facility] [...] 05/22/2022 Unless otherwise specified, test(s) performed at: [facility], [address] [place] [address] [place] [facility] [place] [address] BLENDING MACHINE OPERATOR: Raheem Malik M.D., Ph.D For any [...] 05/22/2022 Unless otherwise specified, test(s) performed at: [facility], [address] [place] [address], [place] [address] BLENDING MACHINE OPERATOR: Raheem Malik M.D., Ph.D For any [...] 05/22/2022 Unless otherwise specified, test(s) performed at: [facility], [address] [place] [address] gideon [facility] [place] [address] BLENDING MACHINE OPERATOR: Raheem Malik M.D., Ph.D For any questions, please call customer service at FREQUENCY:MONTHLY Resulting Agency Comment Specimen source: Blood Denilson Holly MD LAB BLOOD ORDERABLES Performing Organization Address City/State/ZIP Code Phon e Number APS SPECTRA [facility] documented in this encounter Visit Diagnoses Not on filedocumented in this encounter
--- OUTSIDE RECORDS SUMMARY | 2022-07-31 13:54 | XMS_ITS | Encounter Summary ---
:1940 Author Organization [facility] Address [address] [place] [address] Care Team Providers Name Role Phone Unavailable Primary Care Provider Unavailable Encounter Details Date Type Department Care Team Description 05/02/2022 Orders Only [facility] O f Denilson Quinones MD [phone] [place] [address] [place], [place] [phone] (Wo rk) Social History Tobacco Use [...] 05/03/2022 Unless otherwise specified, test(s) performed at: [facility], [address] [place] [address] [place] [address] APPLICATIONS TRAINER: Raheem Malik M.D., Ph.D For any questions, [...] 26 mL/min APS SPECTRA 2020 [facility] Comment: [facility] has implemented the recommended eGFR calculation that [...] 05/03/2022 Unless otherwise specified, test(s) performed at: [facility], [address] [place] [address] [place] [address] APPLICATIONS TRAINER: Raheem Malik M.D., Ph.D For any questions, please call customer service at FREQUENCY:OTHER Resulting Agency Comment Specimen source: Serum Denilson Holly MD LAB [id number] NSOLICITED RESULTS Performing Organization Address City/State/ZIP Code Phon e Number APS SPECTRA [facility] documented in this encounter Visit Diagnoses Not on filedocumented in this encounter
--- OUTSIDE RECORDS SUMMARY | 2022-07-31 13:54 | XMS_ITS | Encounter Summary ---
:1940 Author Organization [facility] Address [address] [place] [address] Care Team Providers Name Role Phone Unavailable Primary Care Provider Unavailable Encounter Details Date Type Department Care Team Description 07/23/2022 Orders Only [facility] O f Denilson Quinones MD [address] [place] [address] [place], [place] [phone] (Wo rk) Social History Tobacco Use Types Packs/Day Years Used Date Smoking Tobacco: Never Assessed Sex Assigned at Date Recorded Not on file documented as of this encounter Plan of Treatment Not on filedocumented as of this encounter Procedures Procedure Name Priority Date/Time Associated Diagnosis Comme nts HD KINETICS Routine 07/23/2022 Results for thi [...] this encounter Results Spectra JALEEL Lab Results (07/23/2022) P athologist Signature PCR 35.95 JALEEL nPCR_HD [...] Code Phon e Number JALEEL HD KINETICS (07/23/2022) P athologist Signature % Urea 74 65 - 80 % APS SPECTRA Reduction [facility] Specimen (Source) Anatomical Collection Method Collection Time Re ceived Time Location / / Volume Laterality 07/23/2022 07/24/2022 10:4 0 AM CDT Narrative APS SPECTRA [facility] - 07/24/2022 Unless otherwise specified, test(s) performed at: [facility], [address] [place] [address], [place] [address] MOLD SHAKER: Raheem Malik M.D., Ph.D For any questions, please call customer service at FREQUENCY:MONTHLY Resulting Agency Comment Specimen source: Plasma Denilson Holly MD LAB BLOOD ORDERABLES Performing Organization Address City/State/ZIP Code Phon e Number APS SPECTRA [facility] (ABNORMAL) Spectrae Chemistry (07/23/2022) [facility] gist Method Time Signature BUN 43 (H) [...] 07/24/2022 Unless otherwise specified, test(s) performed at: [facility], [address] [place] [address], [place] [address] MOLD SHAKER: Raheem Malik M.D., Ph.D For any questions, please call customer service at FREQUENCY:MONTHLY Resulting Agency Comment Specimen source: Serum Denilson Holly MD LAB BLOOD ORDERABLES Performing Organization Address City/State/ZIP Code Phon e Number APS SPECTRA [facility] POST CHEMISTRY (07/23/2022) P athologist Signature BUN Post 11 6 - 19 APS SPECTRA Dialysis mg/dL [facility] Specimen (Source) Anatomical Collection Method Collection Time Re ceived Time Location / / Volume Laterality 07/23/2022 07/24/2022 10:4 0 AM CDT Narrative APS SPECTRA [facility] - 07/24/2022 Unless otherwise specified, test(s) performed at: [facility], [address] [place] [address], [place] [address] MOLD SHAKER: Raheem Malik M.D., Ph.D For any questions, please call customer service at FREQUENCY:MONTHLY Resulting Agency Comment Specimen source: Plasma Denilson Holly MD LAB BLOOD ORDERABLES Performing Organization Address City/State/ZIP Code Phon e Number APS SPECTRA [facility] IMMUNO CHEMISTRY (07/23/2022) P athologist Signature Hep B Surface Negative [...] for the general public, refer to MMWR [facility] 2004/Vol.54 (No. 16); -, and [...] damaris test result was obtained using the DiaSorin Liaison XL chemilumin escent method. Results obtained [...] Number APS SPECTRA [facility] (ABNORMAL) Spectrae Chemistry (07/23/2022) P athologist Signature PTH 165 (H) 16 - 80 APS SPECTRA pg/mL [facility] Specimen (Source) Anatomical Collection Method Collection Time Re ceived Time Location / / Volume Laterality 07/23/2022 07/24/2022 10:3 0 AM CDT Narrative APS SPECTRA [facility] - 07/24/2022 Unless otherwise specified, test(s) performed at: [facility], [address] [place] [address], [place] [address] MOLD SHAKER: Raheem Malik M.D., Ph.D For any questions, please call customer service at FREQUENCY:MONTHLY Resulting Agency Comment Specimen source: Plasma Denilson Holly MD LAB BLOOD ORDERABLES Performing Organization Address City/State/ZIP Code Phon e Number APS SPECTRA [facility] (ABNORMAL) HEMATOLOGY (07/23/2022) [facility] gist Method Time Signature WBC 5.78 4.80 - APS SPECTRA 10.80 [facility] 1000/mcL RBC 3.76 (L) 4.70 - APS SPECTRA 6.10 [facility] mill/mcL Hemoglobin 11.9 (L) 14.0 - APS SPECTRA 18.0 g/dL [facility] Hemoglobin x 3 35.7 (L) 42.0 - APS SPECTRA 54.0 % [facility] Hematocrit 36.8 (L) 42.0 - APS SPECTRA 52.0 % [facility] MCV 98 80 - 100 APS SPECTRA fl [facility] MCH 31.7 (H) 27.0 - APS SPECTRA 31.0 pg [facility] MCHC 32.4 30.0 - APS SPECTRA 36.0 g/dL [facility] RDW 14.7 (H) 11.5 - APS SPECTRA 14.5 % [facility] Neutrophils 69.3 40.0 - APS SPECTRA 75.0 % [facility] Lymphocytes 17.3 (L) 19.0 - APS SPECTRA Relative 48.0 % [facility] Monocytes 7.8 3.0 - 10.0 APS SPECTRA % [facility] Eosinophils 2.1 0.0 - 7.0 APS SPECTRA Relative % [facility] Basophils 0.2 0.0 - 1.5 APS SPECTRA Relative % [facility] YARIEL 3.4 0.0 - 4.0 APS SPECTRA % [facility] Platelets 162 130 - 400 APS SPECTRA 1000/mcL [facility] Specimen (Source) Anatomical Collection Method Collection Time Re ceived Time Location / / Volume Laterality 07/23/2022 07/24/2022 5:07 AM CDT Narrative APS SPECTRA [facility] - 07/24/2022 Unless otherwise specified, test(s) performed at: [facility], [address] [place] [address] [place] [address] MOLD SHAKER: Raheem Malik M.D., Ph.D For any questions, please call customer service at FREQUENCY:MONTHLY Resulting Agency Comment Specimen source: Blood Denilson Holly MD LAB BLOOD ORDERABLES Performing Organization Address City/State/ZIP Code Phon e Number APS SPECTRA [facility] documented in this encounter Visit Diagnoses Not on filedocumented in this encounter
--- OUTSIDE RECORDS SUMMARY | 2022-07-31 13:54 | XMS_ITS | Encounter Summary ---
:1940 Author Organization [facility] Address [address] [place] [address] Care Team Providers Name Role Phone Unavailable Primary Care Provider Unavailable Encounter Details Date Type Department Care Team Description 06/25/2022 Orders Only [facility] O f Denilson Quinones MD [address] [place] [address] [place], [place] [phone] (Wo rk) Social History Tobacco Use [...] 06/27/2022 Unless otherwise specified, test(s) performed at: [facility], [address] [place] [address], [place] [address] INTERNATIONAL TRADE ANALYST: Raheem Malik M.D., Ph.D For any [...] 06/27/2022 Unless otherwise specified, test(s) performed at: [facility], [address] [place] [address] gideon [facility], [place] [address] INTERNATIONAL TRADE ANALYST: Raheem Malik M.D., Ph.D For any [...] 06/27/2022 Unless otherwise specified, test(s) performed at: [facility], [address] [place] [address], [place] [address] INTERNATIONAL TRADE ANALYST: Raheem Malik M.D., Ph.D For any questions, please call customer service at FREQUENCY:MONTHLY Resulting Agency Comment Specimen source: Serum Denilson Holly MD LAB BLOOD ORDERABLES Performing Organization Address City/State/ZIP Code Phon e Number APS SPECTRA [facility] (ABNORMAL) HEMATOLOGY (06/25/2022) [facility] gist Method Time Signature WBC 4.15 [...] 06/27/2022 Unless otherwise specified, test(s) performed at: [facility], [address] [place] [address], [place] [address] INTERNATIONAL TRADE ANALYST: Raheem Malik M.D., Ph.D For any questions, please call customer service at FREQUENCY:MONTHLY Resulting Agency Comment Specimen source: Blood Denilson Holly MD LAB BLOOD ORDERABLES Performing Organization Address City/State/ZIP Code Phon e Number APS SPECTRA [facility] documented in this encounter Visit Diagnoses Not on filedocumented in this encounter
--- OUTSIDE RECORDS SUMMARY | 2022-07-31 13:54 | XMS_ITS | Encounter Summary ---
:1940 Author Organization [facility] Address [address] [place] [address] Care Team Providers Name Role Phone Unavailable Primary Care Provider Unavailable Encounter Details Date Type Department Care Team Description 07/30/2022 Treatment [facility] Denilson Paige MD [address] [place], [place] [phone] (Wo rk) Social History Tobacco Use Types Packs/Day Years Used Date Smoking Tobacco: Never Assessed Sex Assigned at Date Recorded Not on file documented as of this encounter Miscellaneous Notes Dialysis Note - Denilson Holly MD - 07/30/2022 2:05 PM CDT Date: Jul 30, 2022 Patient Name: Speedy Hendricks : 1940 Chart #: [id number] Sex: M This patient was personally seen for a complete visit as part of routine monthly dialysis care. A review of the dialysis treatment, blood pressure, estimated dry weight and recent lab values was made. These were discussed with the patient and staff as necessary. Treatment Data for 07/30/2022 started at:11:51 AM Dialyzer: 180NRe Optiflux Na: 138 mEq/L Bicarb: 36 mEq/L Dialysate: 3.0 K, 2.25 Ca, 1.0 Mg, 100 Dextrose (G3231) Dialysate/Machine Temp (prescribed): 37 C Dialysate/Machine Temp (actual): 35.8 C BFR (prescribed): 350 BFR (actual): 350 Prescribed time: 03:00 EDW: 71.5 kg Access Type: Active (In Use):CVCatheter-Tunneled/Chest Pre Dialysis Vitals (for 07/30/2022 11:47 AM ) Pre BP (sit): 131/65 Pre Wt: 72.5 kg Temp: 96.8 F Post Dialysis Vitals (for 07/28/2022 2:54 PM ) Post BP (sit): 163/101 Post Wt: 71.4 kg Current Dialysis Vitals (for 07/30/2022 1:04 PM ) BP (sit): 118/70 AP(-) / SOLE TRIMMER: 152/99 Pulse: 75 Chairside data as of 07/30/2022 1:04 PM Last 3 Treatments 07/28/2022 07/25/2022 07/23/2022 EDW (kg) 71.5 71.5 71.5 Weight Pre (kg) 71.8 72.2 71.3 Weight Post (kg) 71.4 70.3 70.3 Dialytic Weight Loss (kg) -0.4 -1.9 -1 EDW Deviation (kg) -0.1 -1.2 -1.2 BP Sit Pre 129/77 152/87 130/76 BP Sit Post 163/101 125/72 107/61 UF Rate (mL/kg/hr) 2 9 5 Prescribed BFR 350 350 350 Average Delivered BFR 360 360 350 Prescribed Treatment Time 03:00 03:00 03:00 Actual Treatment Time 03:00 03:00 03:00 Treatment Medication Orders Medication Sig Start Date End Date Heparin Sodium (Porcine) 1,000 Units/mL Catheter Lock Arterial 1600 units Arterial Red Port Every Treatment 04/16/2022 04/15/2023 Heparin Sodium (Porcine) 1,000 Units/mL Catheter Lock Venous 1600 units Venous Blue Port Every Treatment 04/16/2022 04/15/2023 Iron Sucrose (Venofer) 100 mg IVP Every Treatment 07/16/2022 08/06/2022 Mircera 30 mcg IVP Every 4 weeks 07/07/2022 07/06/2023 RADIOLOGY TECHNOLOGIST: Denilson Holly MD LOCATION: [place] [phone] SCHEDULE: -- 2nd Shift EDW: kg. DIALYZER: HD DURATION: NEEDLE SIZE: ANTICOAG: BATH: QB: ml/min QD: ml/min Subjective No new complaints. 07/30/22: He is doing really a lot better. He is still at home, now driving and doing things in the yard and cooking meals. Appetite is improved. He feels he is urinating the same. Still gaining 2-2.5Lbetween treatments most of the time. BP's are adequate. Has AVG procedure planned next week. 07/09/22: Patient made ESRD, previously prolonged DEJA [...] Exam Respiratory - Clear to auscultation bilaterally. nl effort Cardiovascular - Regular rate. Regular rhythm. Edema [...] made. Treatment and Adequacy Assessment BUN mg/dL 43 (07/23/22) 30 (07/16/22) 27 (07/09/22) 28 (07/02/22) 24 (06/25/22) UREA NITROGEN (MG/DL) IN SER/PLAS - POST DIALYSIS mg/dL 11 (07/23/22) 7 (06/25/22) 13 (05/21/22) 11 (04/23/22) 18 (04/16/22) URR % 74 (07/23/22) 71 (06/25/22) 76 (05/21/22) 74 (04/23/22) 69 (04/16/22) spKt/V Gotch 1.56 (07/23/22) 1.39 (06/25/22) 1.78 (05/21/22) 1.8 (04/23/22) eKdrt/V 1.42 (07/23/22) 1.27 (06/25/22) 1.45 (05/21/22) 1.47 (04/23/22) spKt/V (Daugirdas II) 1.5200 (07/23/22) 1.3600 (06/25/22) 1.6600 (05/21/22) 1.6300 (04/23/22) 1.3700 (04/16/22) Dialysis is adequate. Achieves prescribed time - Yes Achieves prescribed frequency - Yes Continue current prescription. Vascular Access Assessment Type of access: PCAD Access placement scheduled at [facility] July Anemia Assessment HEMOGLOBIN (G/DL) IN BLOOD g/dL 11.9 (07/23/22) 11.2 (07/16/22) 11.3 (07/09/22) 11.6 (07/02/22) 11.1 (06/25/22) PLATELETS 1000/mcL 162 (07/23/22) 198 (06/25/22) 244 (05/21/22) 203 (04/23/22) 229 (04/16/22) IRON SATURATION % 31 (04/16/22) FERRITIN ng/mL 864 (07/23/22) 704 (04/23/22) 989 (04/16/22) Hemoglobin is above goal. Iron Saturation is at goal. Ferritin is at goal. Will adjust DYLAN and intravenous iron per protocol. Nutritional and Metabolic Assessment ALBUMIN (G/DL) g/dL 4.1 (07/23/22) 3.9 (06/25/22) 3.7 (05/21/22) 3.2 (04/23/22) 2.7 (04/16/22) Sodium mEq/L 141 (07/23/22) 140 (07/16/22) 141 (07/09/22) 140 (07/02/22) 138 (06/25/22) POTASSIUM (MMOL/L) IN SER/PLAS mEq/L 4.4 (07/23/22) 4.2 (07/16/22) 4.2 (07/09/22) 4.0 (07/02/22) 4.3 (06/25/22) BICARBONATE (CO2) mEq/L 24 (07/23/22) 30 (07/16/22) 27 (07/09/22) 28 (07/02/22) 29 (06/25/22) Albumin is at goal. Encourage high-biological value protein intake. Oral Nutritional Supplement program. Potassium is at goal. Bicarbonate is at goal. Continue same bicarbonate in dialysate. Bone and Mineral Metabolism Assessment CALCIUM mg/dL 9.7 (07/23/22) 8.9 (06/25/22) 9.1 (05/21/22) 8.6 (05/19/22) 9.1 (05/02/22) CALCIUM (MG/DL) CORRECTED FOR ALBUMIN IN SER/PLAS mg/dL 9.6 (07/23/22) 9.0 (06/25/22) 9.3 (05/21/22) 9.2 (04/23/22) 9.2 (04/16/22) PHOSPHATE (MG/DL) IN SER/PLAS mg/dL 4.8 (07/23/22) 5.0 (06/25/22) 3.7 (05/21/22) 4.5 (04/23/22) 3.7 (04/16/22) CALCIUM PHOSPHORUS PRODUCT, COR 46 (07/23/22) 45 (06/25/22) 34 (05/21/22) 41 (04/23/22) 34 (04/16/22) IPTH pg/mL 165 (07/23/22) 121 (04/23/22) 108 (04/16/22) Corrected Calcium is at goal. Phosphorous is at goal. Intact PTH is at goal. Elevator Inspector will adjust binders and vitamin D per protocol and continue to provide dietary education. Cardiovascular Assessment Blood pressures reviewed and are acceptable. Intradialytic weight gains are appropriate. Estimated dry weight is appropriate. Continue same cardiovascular medications. Transplant Status: Patient is not a candidate. age and co-morbidities Resuscitation Status Stable dialysis Access placement planned next week CrCl was 12 on last check but urea clearance 2L between treatments and thus will not reduce frequency of dialysis. BMP still showing Cr not improving, actually now >3 with him gaining muscle mass back. I will plan to repeat another 24hr urine in the future however given some improvement over months. I will discuss with his daughter, perhaps we would do this next month Denilson Holly MD [ Signed And locked electronically On 07/30/2022 at 02:08:08 PM ] Transcribed: Denilson Holly ( 07/30/2022 ) documented in this encounter Plan of Treatment Not on filedocumented as of this encounter Visit Diagnoses Not on filedocumented in this encounter
--- OUTSIDE RECORDS SUMMARY | 2022-07-31 13:55 | XMS_ITS | Encounter Summary ---
:1940 Author Organization [facility] Address [address] [place] [address] Care Team Providers Name Role Phone Clinic, [facility] Primary Care Provider [phone] Reason for Visit Reason Onset Date Comments Path Results 06/02/2019 Encounter Details Date Type Department Care Team Description 06/02/2019 Telephone [facility] Jon White, Path Results [phone] [place] [address] (Wo rk) Social History Tobacco Use Types Packs/Day Years Used Date Smoking Tobacco: Former Cigarettes 0.3 Quit : 1985 Smokeless Tobacco: Never Comments: quit 1984 Alcohol Use Standard Drinks/Week Comments Yes 0 (1 standard drink = 0.6 oz pure alcoho l) 10 per week Sex Assigned at Date Recorded [...] : MOHS Surgery with Dr. Jon White, [facility] to remove skin cancers. Thank you for allowing me to be involved in your health care and for choosing [facility]. If you have any questions or concerns please feel free to contact me at . Sincerely, Dr. Fernando White Telephone Encounter - Mallory Montgomery RN - 06/22/2019 9:06 AM CDT Called and LM for patient to call back in regards to scheduling x3 mohs appointments. LENA Lockwood [facility] [phone] Telephone Encounter - Mallory Montgomery RN - 06/17/2019 11:11 AM CDT Called and LM for patient to call back in regards to scheduling x3 mohs appointments. LENA Lockwood [facility] [phone] Telephone Encounter - Mallory Montgomery RN - 06/14/2019 10:15 AM CDT Called and LM for patient to call back in regards to scheduling x3 mohs appointments. LENA Lockwood [facility] [phone] Telephone Encounter - Mallory Montgomery RN - 06/13/2019 1:05 PM CDT Called and LM for patient to call back in regards to scheduling x3 mohs appointments. [facility] [phone] Telephone Encounter - Mallory Montgomery RN - 06/06/2019 4:22 PM CDT Called and spoke to patient. Educated patient on biopsy results- BCC x3. Educated patient on BCC andmohs. Patient stated his is currently in the hospital so he cannot schedule any appointments atthis time. Patient asked that I call him early next week. Patient voiced understanding. ERMA LockwoodLaxmi [facility] [phone] Telephone Encounter - Ryan Grady - 06/06/2019 3:44 PM CDT Please call patient on cell at [phone]. Telephone Encounter - Mallory Montgomery RN - 06/06/2019 8:40 AM CDT Called and LM for patient to call back in regards to biopsy results x3. L.LENA Montgomery [facility] [phone] Telephone Encounter - Mallory Montgomery RN - 06/03/2019 3:44 PM CDT Called and LM for patient to call back in regards to biopsy results x3. L.ERMA MontgomeryLaxmi [facility] [phone] Telephone Encounter - Mallory Montgomery RN - [...] documented as of this encounter Care Teams Airport Attendant Relationship Specialty Start Date End Date [facility] PCP - General 05/12/[address] [place] [address] documented as of this encounter
--- OUTSIDE RECORDS SUMMARY | 2022-07-31 13:55 | XMS_ITS | Encounter Summary ---
:1940 Author Organization [facility] Address [address] [place] [address] Care Team Providers Name Role Phone Kehinde Portillo Primary Care Provider [phone] Encounter Details Date Type Department Care Team [...] documented as of this encounter Care Teams Oncology Registrar Relationship Specialty Start Date End Date [facility], Kehinde Santos PCP - General 05/12/[address] [place] [address] documented as of this encounter
--- OUTSIDE RECORDS SUMMARY | 2022-07-31 13:55 | XMS_ITS | Encounter Summary ---
:1940 Author Organization [facility] Address [address] [place] [address] Care Team Providers Name Role Phone [facility] Primary Care Provider [phone] Encounter Details Date Type Department Care Team [...] documented as of this encounter Care Teams Pole Peeler Relationship Specialty Start Date End Date [facility] PCP - General 05/12/[address] [place] [address] documented as of this encounter
--- OUTSIDE RECORDS SUMMARY | 2022-07-31 13:55 | XMS_ITS | Encounter Summary ---
:1940 Author Organization [facility] Address [address] [place] [address] Care Team Providers Name Role Phone Clinic, [facility] Primary Care Provider [phone] Encounter Details Date Type Department Care Team Description 12/08/2019 Orders Only [facility] Tho racic aortic aneurysm [facility] without rupture (H) [address] [place] [address] Social History Tobacco Use [...] AM Thoracic aortic Resul ts for this ASSISTANT CENTER DIRECTOR aneurysm without procedure a re in the rupture (H) results section . documented in this encounter Results (ABNORMAL) Creatinine (12/08/2019 10:59 AM ASSISTANT CENTER DIRECTOR) Analysis Performed At [facility] logis Time Signature Creatinine 1.36 (H) 0.66 - 12/09/2019 [place] 1.25 mg/dL 9:03 AM ASSISTANT CENTER DIRECTOR CLINICS [facility] GFR Estimate 50 (L) >60 12/09/2019 MELLETTE mL/min/{1. 9:03 AM [facility] 73_m2} [facility] Comment: Non GFR Calc Starting 10/05/2018, serum creatinine ba sed estimated GFR (eGFR) will be calculated using the Chronic Kidney Dise [facility] Epidemiology Collaboration (CKD-EPI) equation. GFR Estimate If 58 (L) >60 mL/min/{1.73_m2} 12/09/2019 9:03 AM [facility] Black [facility] Comment: GFR Calc Starting 10/05/2018, serum creatinine ba sed estimated GFR (eGFR) will be calculated using the Chronic Kidney Dise ase Epidemiology Collaboration (CKD-EPI) equation. Specimen Anatomical Collection Method Collection Time Receive d Time (Source) Location / / Volume Laterality Blood specimen 12/08/2019 10:59 0 (specimen) AM ASSISTANT CENTER DIRECTOR 11:04 AM ASSISTANT CENTER DIRECTOR Ramiro Loco MD LAB - BLOOD ORDERABLES Performing Organization Address City/State/ZIP Code Phon e Number [facility] [address] [place] [address] documented in this encounter Visit Diagnoses Diagnosis Thoracic aortic aneurysm without rupture Thoracic aneurysm without mention of rup ture documented in this encounter Additional Health Concerns Infection Onset Date Last Indicated Resolved Time MRSAComment: Positive 02/17/11 and 09/22/12 11/05/2018 019 Negatives 05/03/14 (HE), 12/01/14 (HE) documented as of this encounter Care Teams Freight Flow Sales Leader Relationship Specialty Start Date End Date Kehinde Portillofield PCP - General 05/12/[address] [place] [address] documented as of this encounter
--- OUTSIDE RECORDS SUMMARY | 2022-07-31 13:55 | XMS_ITS | Clinical Summary ---
:1940 Author Organization [facility] Address [address] [place] [address] Care Team Providers Name Role Phone Clinic, [facility] Primary Care Provider [phone] Gallito Gonzalez MD Unavailable Allergies Active Allergy [...] 0.3 Quit : 1985 Smokeless Tobacco: Never Tobacco Cessation: Counseling Given: Yes Comments: quit 1984 Alcohol Use Standard Drinks/Week Comments Yes 0 (1 standard drink = 0.6 oz pure alcoho l) 10 per week Sex Assigned at Date Recorded Not on file Last Filed Vital Signs Vital Sign Reading Time Taken Comments Blood Pressure 161/78 09/23/2021 10:34 AM BUSINESS TRAVEL CONSULTANT Pulse 57 09/23/2021 10:34 AM BUSINESS TRAVEL CONSULTANT Temperature 36.6 ??C (97.9 ??F) 11/09/2018 7:31 AM BUSINESS TRAVEL CONSULTANT Respiratory Rate 16 09/23/2021 10:34 AM BUSINESS TRAVEL CONSULTANT Oxygen Saturation 99% 09/23/2021 10:34 AM BUSINESS TRAVEL CONSULTANT Inhaled Oxygen Concentration - - Weight 79.4 kg (175 lb) 09/23/2021 10:34 AM BUSINESS TRAVEL CONSULTANT Height 167.6 cm (5' 6) 09/23/2021 10:34 AM BUSINESS TRAVEL CONSULTANT Body Mass Index 28.25 09/23/2021 10:34 AM BUSINESS TRAVEL CONSULTANT Plan of Treatment Health Maintenance Due Date Last Done Comments ANNUAL REVIEW OF HM ORDERS 1940 MICROALBUMIN 1940 HEPATITIS C SCREENING 1960 HEPATITIS B IMMUNIZATION (3 09/19/1991 07/25/1991, 01/31/19 91 of 3 - 3-dose series) ZOSTER IMMUNIZATION (1 of 1992 2) MEDICARE ANNUAL WELLNESS 2007 VISIT DTAP/TDAP/TD IMMUNIZATION 06/27/2019 06/27/2009 (2 - Td or Tdap) LIPID 11/05/2019 11/05/2018, 09/28/2018, 05/11/2017 BMP 11/09/2019 11/09/2018, 11/08/2018, 11/07/2018, Additional history exists HEMOGLOBIN 11/09/2019 11/09/2018, 11/08/2018, 11/07/2018, Additional history exists COVID-19 Vaccine (4 - 09/19/2021 07/25/2021, 12/04/2020, Booster for Pfizer series) 11/15/2020 PHQ-2 (once per calendar 10/19/2021 year) INFLUENZA VACCINE (#1) 2022 08/16/2021, 08/10/2020, 08/12/2018, Additional history exists FALL RISK ASSESSMENT 09/23/2022 09/23/2021, 05/17/2019, 11/26/2018 ADVANCE CARE PLANNING 09/29/2023 09/29/2018 Pneumococcal Vaccine: 65+ Completed 12/02/2016, 10/03/2009 , Years 05/01/2009 URINALYSIS Completed 05/05/2017 IPV IMMUNIZATION Aged Out No longer eligi ble based on patient 's age to complete this topic MENINGITIS IMMUNIZATION Aged Out No longe r eligible based on patient 's age to complete this topic Medical Devices Implanted Type Area Content Management Specialist Device Shelf Model / Identifier Expiration Serial / Date Lot Graft Master Matrix 10cc [id number] Bone/Tissue N/A: Back [employer] 04/17/2017 [id number] / Implanted: Qty: 1 on 11/29/2014 /Biologic / [id number] Medtronic Valiant Navion Thoracic Graft System (37mm X 37mm X 223mm X 20fr.) Graft N/A: Aorta [employer] 07/25/2020 [id number] / Implanted: Qty: 1 on 11/05/2018 by Juan Delcid MD at [facility] [id number] / Alessio Precut Contoured 70x5.5mm Metallic N/A: Back [employer] [id number] / Implanted: Qty: 2 on 11/29/2014 Hardware/An / chor NA Cervical Rods/Screws Angio-Seal Vip Vascular Closure Device Right: 08/18/2019 [id number] / Implanted: Qty: 1 on 11/05/2018 by Juan Delcid MD at [facility] Arterial / [id number] Description: Perclose Device sutured int o the right common femoral artery. Explanted Type Area Content Management Specialist Device Shelf Model / Identifier Expiration Date Ser ial / Lot Pedicle Screws Metallic And Rods Hardware/Anch or Additional Health Concerns Infection Onset Date Last Indicated MRSAComment: Positive 02/17/11 and 09/22/12 11/05/2018 11/05/2018 Negatives 05/03/14 (HE), 12/01/14 (HE) Insurance Payer Benefit Plan / Subscriber ID Effective Phone Address T ype Group Dates MEDICARE MEDICARE FOR HB [id number] 2012-Prese [phone] ATTN CLAIMS Medicare SUPPLEMENT nt 40 [address] [place] [address] BCBS BCBS [place] [id number] 2012-Prese [phone] [address] [address] PPO BLUE nt 00 [place] [address] Advance Directives For more information, please contact: [phone] Latest Code Status on File Code Status Date Activated Date Inactivated Comments Full Code 11/15/2017 2:04 AM 11/15/2017 2:27 PM Code Status History Code Status Date Activated Date Inactivated Comments Full Code 05/12/2017 1:29 PM 11/15/2017 2:04 AM Full Code 05/05/2017 5:50 PM 05/12/2017 1:29 PM Care Teams Laborer Steel Handling Relationship Specialty Start Date End Date Clinic, [facility] PCP - General 05/12/17 [address] [place] [address] Gallito Gonzalez MD Assigned Heart and Vascular 09/29/21 [address] Provider [place] [address]
--- OUTSIDE RECORDS SUMMARY | 2022-07-31 13:55 | XMS_ITS | Encounter Summary ---
:1940 Author Organization [facility] Address [address] [place] [address] Care Team Providers Name Role Phone Kehinde Portillo Primary Care Provider [phone] Encounter Details Date Type Department Care Team [...] documented as of this encounter Care Teams Team Leader Relationship Specialty Start Date End [facility] - [facility] [place] [address] documented as of this encounter
--- OUTSIDE RECORDS SUMMARY | 2022-07-31 13:55 | XMS_ITS | Encounter Summary ---
:1940 Author Organization [facility] Address [address] [facility] [place] [address] Care Team Providers Name Role Phone Clinic, [facility] Primary Care Provider [phone] Encounter Details Date Type Department Care Team Description 11/15/2019 Orders Only [facility] Ramiro Loco Thoracic aortic Vascular Clinic Félix Garcia MD aneurysm without [address] rupt ure (H) (Primary [address] Dx) [place] [phone] [place] [id number] Social History Tobacco Use Types Packs/Day Years [...] encounter Results (ABNORMAL) Creatinine (12/08/2019 10:59 AM LIEUTENANT GOVERNOR) Analysis Performed At [facility] Time Signature Creatinine 1.36 (H) 0.66 - 12/09/2019 [place] 1.25 mg/dL 9:03 AM LIEUTENANT GOVERNOR CLINICS [facility] GFR Estimate 50 (L) >60 12/09/2019 [place] mL/min/{1. 9:03 AM LIEUTENANT GOVERNOR CLINICS 73_m2} [facility] Comment: Non GFR Calc Starting 10/05/2018, serum creatinine ba sed estimated GFR (eGFR) will be calculated using the Chronic Kidney Dise ase Epidemiology Collaboration (CKD-EPI) equation. GFR Estimate If 58 (L) >60 mL/min/{1.73_m2} 12/09/2019 9:03 AM [facility] Black [facility] Comment: GFR Calc Starting 10/05/2018, serum creatinine ba sed estimated GFR (eGFR) will be calculated using the Chronic Kidney Dise ase Epidemiology Collaboration (CKD-EPI) equation. Specimen Anatomical Collection Method Collection Time Receive d Time (Source) Location / / Volume Laterality Blood specimen 12/08/2019 10:59 0 (specimen) AM LIEUTENANT GOVERNOR 11:04 AM LIEUTENANT GOVERNOR Ramiro Loco MD LAB - BLOOD ORDERABLES Performing Organization Address City/State/ZIP Code Phon e Number [facility] [address] [place] [address] documented in this encounter Visit Diagnoses Diagnosis Thoracic aortic aneurysm without rupture - Primary Thoracic aneurysm without mention of rup ture documented in this encounter Additional Health Concerns Infection Onset Date Last Indicated Resolved Time MRSAComment: Positive 02/17/11 and 09/22/12 11/05/2018 019 Negatives 05/03/14 (HE), 12/01/14 (HE) documented as of this encounter Care Teams Development Administrator Relationship Specialty Start Date End Date [facility] Portillo[facility] PCP - General 05/12/[address] [place] [address] documented as of this encounter
--- OUTSIDE RECORDS SUMMARY | 2022-07-31 13:55 | XMS_ITS | Encounter Summary ---
:1940 Author Organization [facility] Address [address] [place] [address] Care Team Providers Name Role Phone [facility], [facility] Primary Care Provider [phone] Reason for Visit Reason Onset Date Comments Forms 06/30/2019 Encounter Details Date Type Department Care Team Description 06/30/2019 Telephone [facility] Jon White, Forms [phone] [place] [address] (Wo rk) Social History Tobacco [...] back and records faxed to them at [phone].Desire De Oliveira RN Telephone Encounter - Mallory Montgomery RN - 06/30/2019 1:04 PM CDT Flor over at [facility] called requesting patient records from [...] frustrated by the situation. Faxed form to [facility]. Flor voiced understanding. JOSE [facility] [phone] documented in this encounter Plan of Treatment Not on filedocumented as of this encounter Visit Diagnoses Not on filedocumented in this encounter Additional Health Concerns Infection Onset Date Last Indicated Resolved Time MRSAComment: Positive 02/17/11 and 09/22/12 11/05/2018 019 Negatives 05/03/14 (HE), 12/01/14 (HE) documented as of this encounter Care Teams Music Educator Relationship Specialty Start Date End Date [facility] PCP - General 05/12/[address] [place] [address] documented as of this encounter
--- OUTSIDE RECORDS SUMMARY | 2022-07-31 13:55 | XMS_ITS | Encounter Summary ---
:1940 Author Organization [facility] Address [address] [place] [address] Care Team Providers Name Role Phone Unavailable Primary Care Provider Unavailable Encounter Details Date Type Department Care Team Description 04/16/2022 Treatment [facility] Denilson Quinones MD [address] [place], [place] [phone] [phone] (Wo rk) Social History Tobacco Use Types Packs/Day Years Used Date Smoking Tobacco: Never Assessed Sex Assigned at Date Recorded Not on file documented as of this encounter Miscellaneous Notes Dialysis Note - Denilson Holly MD - 04/16/2022 3:44 PM CDT Date: Apr 16, 2022 Patient Name: Speedy Hendricks : 1940 Chart #: [id number] Sex: M Patient Type: DEJA Modality: Hemodialysis Loans Consultant: Denilson Holly MD Location: [place] [phone] Schedule: M-W-F 2nd Shift Initial Access Date [...] Name: Speedy Hendricks : 1940 Chart #: [id number] Sex: M SUPERVISOR NURSE: Denilson Holly MD LOCATION: [phone] SCHEDULE: -W- 2nd Shift Chief Complaint: Acute kidney injury. The patient complains of the following - 04/16/22: Meeting patient today. Met with patient and his daughter Raquel. Patient saw me in clinic in past, baseline Cr 1.5 range. 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 Recently on Mon/Fri HD, but still requiring HD. Transferred from [place] rehab to [facility] here, hoping to get home. First H[facility] here today, dry weight much lower than what they had listed it appears. Med list reviewed from [facility], on midodrine for hypotension with HD. [...] Hx of above, complex co-morbidities, hospitalized in [place] for AAA rupture while on boat -> TEVAR extension on 01/03/22 -> multiple complications including ARF requiring CRRT/HD, staph pneumonia, chronic resp failure with long mech vent/trach (trach out), R hydropneumothorax, DVT, a-fih, UGI bleed, DIC, critical illness myopathy, sepsis, and dysphagia (had feeding tube, now removed). Went to rehab, transferred back to [place] to [facility] for ongoing rehab closer to home. [facility] [place]. His daughter Raquel is ICU/ENROLLMENT MANAGER (ramone currently) and is very involved. [...] - Cath - Tunneled Will send to [facility] for AVF/AVG placement as [...]
--- OUTSIDE RECORDS SUMMARY | 2022-07-31 13:55 | XMS_ITS | Encounter Summary ---
:1940 Author Organization [facility] Address [address] [place] [address] Care Team Providers Name Role Phone [facility], [facility] Primary Care Provider [phone] Encounter Details Date Type Department Care Team [...] with No / Unsure 09/23/2021 10:26 AM MANAGER RESIDENTIAL someone who was confirmed or suspected to have Coronavirus / COVID-19? documented as of this encounter Plan of Treatment Not on filedocumented as of this encounter Visit Diagnoses Not on filedocumented in this encounter Additional Health Concerns Infection Onset Date Last Indicated Resolved Time MRSAComment: Positive 02/17/11 and 09/22/12 11/05/2018 019 Negatives 05/03/14 (HE), 12/01/14 (HE) documented as of this encounter Care Teams Automatic Door Mechanic Relationship Specialty Start Date End Date [facility] PCP - General 05/12/[address] [place] [address] documented as of this encounter
--- OUTSIDE RECORDS SUMMARY | 2022-07-31 13:55 | XMS_ITS | Encounter Summary ---
:1940 Author Organization [place] Address [address] [facility] [place] [address] Care Team Providers Name Role Phone [facility], [facility] Primary Care Provider [phone] Reason for Referral Diagnostic Imaging CT Scan (Routine) - Closed Specialty Diagnoses / Procedures Referred By Contact Refer red To Contact Radiology. 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 Butch Brown MD Rh Ct Scan [facility] Procedures CT Chest Abdomen Pelvis w/o Contrast [address] [place] [address] [place] [address] [place] [address] [place] [address] Phone: Fax: Referral ID Status Reason Start Date Expiration Date Visits Requ ested Visits Authorized [id number] Closed 05/17/2019 05/16/2020 1 1 Encounter Details Date Type Department Care Team Description 05/17/2019 [facility] Only [facility] Butch Brown Abdominal aortic Vascular Clinic Félix Jay MD aneurysm (AAA) without [address] ru pture (H) (Primary [address] Dx) [place] [address] [place] [address] [phone] Social History Tobacco Use Types Packs/Day Years [...] Abdomen Pelvis w/o Contrast (11/09/2019 11:25 AM VEGETABLE WORKER) Anatomical Region Laterality Modality Abdomen/Pelvis, SUBRAD CT BODY, UMP CT CHEST, UMP CT Computed Tomography ABDOMEN PELVIS, Chest, RAD CT Specimen (Source) Anatomical Location Collection Method / Collectio n Time Received Time / Laterality Volume Impressions 11/09/2019 3:17 PM VEGETABLE WORKER IMPRESSION: 1. 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 2. The aneurysm sac in the distal thorac ic aorta and an infrarenal abdominal aortic aneurysm have increased slightly in size since the previous exam. 3. Moderate age-indeterminate anterior c ompression of the T7 vertebral body is new since the previous exam. JON NICHOLS MD Narrative 11/09/2019 3:[address] CHEST, ABDOMEN AND PELVIS WITHOUT [...] documented as of this encounter Care Teams Cable Swager Relationship Specialty Start Date End Date [facility], [facility] PCP - General 05/12/[address] [place] [address] documented as of this encounter
--- OUTSIDE RECORDS SUMMARY | 2022-07-31 13:55 | XMS_ITS | Encounter Summary ---
:1940 Author Organization [place] Address [address] [facility] [place] [address] Care Team Providers Name Role Phone [facility], [facility] Primary Care Provider [phone] Reason for Referral Diagnostic Imaging CT Scan (Routine) - Closed Specialty Diagnoses / Procedures Referred By Contact Refer red To Contact Radiology. 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 Butch Brown MD Ct Scan [facility] Procedures CT Chest Abdomen Pelvis w/o Contrast [address] [place] [address] [address] Phone: Fax: Referral ID Status Reason Start Date Expiration Date Visits Requ ested Visits Authorized [id number] Closed 05/17/2019 05/16/2020 1 1 NHOUSE INSTRUCTOR Reason for Visit Diagnostic Imaging CT Scan (Routine) - Closed Specialty Diagnoses / Procedures Referred By Contact Refer red To Contact Radiology. 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 Butch Brown MD Ct Scan [facility] Procedures CT Chest Abdomen Pelvis w/o Contrast [address] [place] [address] [address] Phone: Fax: Referral ID Status Reason Start Date Expiration Date Visits Requ ested Visits Authorized [id number] Closed 05/17/2019 05/16/2020 1 1 Encounter Details Date Type Department Care Team Description 11/09/2019 Hospital Encounter [facility] Butch Brown aortic [facility] MD Pierre aneurysm (AAA) [address] [place] [address] AVE with out rupture (H) [address] [place] [address] Social History Tobacco Use Types Packs/Day [...] aortic Results for this PELVIS W/O CONTRAST GREENHOUSE INSTRUCTOR aneurysm (AAA) proced ure are in without rupture (H) the resu lts section. documented in this encounter Results CT Chest Abdomen Pelvis w/o Contrast (11/09/2019 11:25 AM GREENHOUSE INSTRUCTOR) Anatomical Region Laterality Modality Abdomen/Pelvis, SUBRAD CT BODY, UMP CT CHEST, UMP CT Computed Tomography ABDOMEN PELVIS, Chest, RAD CT Specimen (Source) Anatomical Location Collection Method / Collectio n Time Received Time / Laterality Volume Impressions 11/09/2019 3:17 PM GREENHOUSE INSTRUCTOR IMPRESSION: 1. 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 2. The aneurysm sac in the distal thorac ic aorta and an infrarenal abdominal aortic aneurysm have increased slightly in size since the previous exam. 3. Moderate age-indeterminate anterior c ompression of the T7 vertebral body is new since the previous exam. JON NICHOLS MD Narrative 11/09/2019 3:[address] CHEST, ABDOMEN AND PELVIS WITHOUT CONTRAST [...] documented as of this encounter Care Teams Filter Changing Technician Relationship Specialty Start Date End Date [facility], [facility] PCP - General 05/12/[address] [place] [address] documented as of this encounter
--- OUTSIDE RECORDS SUMMARY | 2022-07-31 13:55 | XMS_ITS | Encounter Summary ---
:1940 Author Organization [facility] Address [address] [facility] [place] [address] Care Team Providers Name Role Phone Clinic, [facility] Primary Care Provider [phone] Reason for Visit Reason Onset Date Comments Clinic Care Coordination - Initial 05/17/2019 CT sc an Encounter Details Date Type Department Care Team Description 05/17/2019 Telephone [facility] Butch Brown Clinic Car e Coordination Vascular Clinic Félix Jay MD - Initial (CT scan) [address] [place] [address] [place] [address] Social History Tobacco Use Types Packs/Day Years [...] please compete the scan without contrast. Cindy VAZQUEZN, RN documented in this encounter Plan of Treatment Not on filedocumented as of this encounter Visit Diagnoses Not on filedocumented in this encounter Additional Health Concerns Infection Onset Date Last Indicated Resolved Time MRSAComment: Positive 02/17/11 and 09/22/12 11/05/2018 019 Negatives 05/03/14 (HE), 12/01/14 (HE) documented as of this encounter Care Teams Glove Turner Relationship Specialty Start Date End Date [facility] PCP - General 05/12/[address] [place] [address] documented as of this encounter
--- OUTSIDE RECORDS SUMMARY | 2022-07-31 13:55 | XMS_ITS | Encounter Summary ---
:1940 Author Organization [place] Address [address] [facility] [place] [address] Care Team Providers Name Role Phone Clinic, [facility] Primary Care Provider [phone] Reason for Visit Reason Onset Date Comments Appointment 05/28/2020 Encounter Details Date Type Department Care Team Description 05/28/2020 Telephone [facility] Ramiro Loco MD Appointment [facility] [place] [address] [place] [address] [place] [address] [phone] Social History Tobacco Use Types Packs/Day Years Used Date Smoking Tobacco: Former Cigarettes 0.3 Quit : 1985 Smokeless Tobacco: Never Comments: quit 1984 Alcohol Use Standard Drinks/Week Comments Yes 0 (1 standard drink = 0.6 oz pure alcoho l) 10 per week Sex Assigned at Date Recorded Not on file documented as of this encounter Miscellaneous Notes Telephone Encounter - Serenityvolodymyr Carolyn Browne - 05/28/2020 2:58 PM CDT May 28, 2020 Mailed recall letters to patient on 04/26/2020 and 05/28/2020 reminding patient to call [facility] & schedule an appointment per follow-up orders by Dr. Loco. These orders were expected to be completed by April,. No further attempts will be made to contact patient for scheduling per these follow-up orders. Carolyn Jerome Bonbon Cream Warmer [facility] Office: [phone] documented in this encounter Plan of Treatment Not on filedocumented as of this encounter Visit Diagnoses Not on filedocumented in this encounter Additional Health Concerns Infection Onset Date Last Indicated Resolved Time MRSAComment: Positive 02/17/11 and 09/22/12 11/05/2018 019 Negatives 05/03/14 (HE), 12/01/14 (HE) documented as of this encounter Care Teams Director Of Catering Sales Relationship Specialty Start Date End Date Bandar, Kehinde Portillofield PCP - General 05/12/[address] [place] [address] documented as of this encounter
--- OUTSIDE RECORDS SUMMARY | 2022-07-31 13:55 | XMS_ITS | Encounter Summary ---
:1940 Author Organization [place] Address [address] [facility] [place] [address] Care Team Providers Name Role Phone [facility], [facility] Primary Care Provider [phone] Reason for Visit Reason Onset Date Comments Pain 08/08/2021 Encounter Details Date Type Department Care Team Description 08/08/2021 [facility] Vascular Ramiro Loco MD [facility] [place] [address] [address] [place] [address] [place] [address] [phone] Social History Tobacco Use Types Packs/Day Years [...] the location you see this provider at? [place] Reason for call: Returned RN's call - relayed message - Pt is scheduled for Dr Gonzalez on 08/29/21 Bed Laborer: Raquel Phone number to call: [phone] Additional Notes: Telephone Encounter - Ro Taylor RN - 08/19/2021 4:37 PM CDT Discussed with Dr. Gonzalez, pt may have office visit with Dr. Gonzalez at next available, no further imaging needed. SHASTA Sotomayor, JOSE [facility] Office: [phone] Telephone Encounter - Cindy Taylor RN - 08/19/2021 4:29 PM CDT I called Raquel and Jami stating we will discuss with Dr. Gonzalez and get back to her. Cindy VEGAS, JOSE [facility] Office: [phone] Telephone Encounter - Kim Neal - 08/19/2021 3:55 PM CDT [facility] Who is the name of the provider? Prev Dr Lewis, Dr Brown and Dr Loco Pt What is the location you see this provider at? [facility] / [place] Reason for call: 1. Pt has not [...] see Dr Gonzalez for another opinion/follow up. Bed Laborer: Raquel Phone number to call: [phone] Additional Notes: Pt stated he is still [...] Pt will need oral hydration. Routing to power crane operator to coordinate CTA c/a/p today. Please call pts daughter to coordinate [phone]. Then in person OV f/u with Dr. Loco at next nearest available. SHASTA Sotomayor, RN [facility] Office: [phone] Telephone Encounter - Ro Taylor RN - [...] has had consult with Dr. Orosco at [place], no further AAA surgery with Dr. Orosco. Reviewed with Rosario Hendricks MD. SHASTA Sotomayor, RN [facility] Office: [phone] Telephone Encounter - Lillian Uribe MA - [...] She would like a call back at [phone] documented in this encounter Plan of Treatment Not on filedocumented as of this encounter Visit Diagnoses Not on filedocumented in this encounter Additional Health Concerns Infection Onset Date Last Indicated Resolved Time MRSAComment: Positive 02/17/11 and 09/22/12 11/05/2018 019 Negatives 05/03/14 (HE), 12/01/14 (HE) documented as of this encounter Care Teams Char Filter Operator Relationship Specialty Start Date End Date [facility] PCP - General 05/12/[address] [place] [address] documented as of this encounter
--- OUTSIDE RECORDS SUMMARY | 2022-07-31 13:55 | XMS_ITS | Encounter Summary ---
:1940 Author Organization [facility] Address [address] [place] [address]. [place] [address] Care Team Providers Name Role Phone Clinic, [facility] Primary Care Provider [phone] Reason for Visit Reason Comments Skin Check FSE Encounter Details Date Type Department Care Team Description 06/02/2019 Office Visit [facility] Jon White of skin cancer (Primary Dx); Clinic [place] MD Aubrey Lentigo; [facility] [address] Seborrheic keratosis; [address] [address] Angioma of skin; [place], [place] [phone] Dermal nevus ; [phone] (Work) Basal cell carcinoma (BCC) of anterior c hest; [phone] Basal wilton l carcinoma (BCC) of sideburn area; Basal cell carc inoma of neck Social History Tobacco Use Types Packs/Day Years Used Date Smoking Tobacco: Former Cigarettes 0.3 Quit : 1985 Smokeless Tobacco: Never Tobacco Cessation: Counseling Given: No Comments: quit [...] documented in this encounter Patient Instructions Patient InstructionsRony Ira LyYOBANI - 06/02/2019 1:15 PM CDT Wound Care Instructions FOR SUPERFICIAL WOUNDS [facility] [phone] [facility] [phone] AFTER 24 HOURS YOU SHOULD REMOVE THE [...] tobacco: Never Used ??? Tobacco comment: quit 1984 Substance and Sexual Activity ??? Alcohol use: Yes Comment: 10 per week ??? Drug use: No ??? Sexual activity: Not on file Lifestyle ??? Physical activity: Days per week: Not on file Minutes per session: Not on file ??? Stress: Not on file Relationships ??? Social connections: Talks on phone: Not on file Gets together: Not on file Attends mormonism service: Not on file Active member of club or organization: Not on file Attends meetings of clubs or organizations: Not on file Relationship status: Not on file ??? Intimate partner violence: Fear of current or ex partner: Not on file Emotionally abused: Not on file Physically abused: Not on file Forced sexual activity: Not on file Other Topics Concern ??? Parent/sibling w/ CABG, [place] or angioplasty before 65F 55M? Not Asked [...] of 11/26/18: 87.5 kg (193 lb). . Ly.JOSE [place]-BSN-PHN [facility] [phone] documented in this encounter Plan of Treatment [...] documented as of this encounter Care Teams Inside Account Executive Relationship Specialty Start Date End Date Kehinde Portillofield PCP - General 05/12/[address] [place] [address] documented as of this encounter
--- OUTSIDE RECORDS SUMMARY | 2022-07-31 13:55 | XMS_ITS | Encounter Summary ---
:1940 Author Organization [place] Address [address] [facility] [address] Care Team Providers Name Role Phone Clinic, [facility] Primary Care Provider [phone] Reason for Visit Reason Comments RECHECK 6 month follow up visit. 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); Surgery Clinic Ramiro Loco MD [address] [place] [address] CKD (chronic kidney disease) stage 3, GF R 30-59 ml/min (H) [address] [place] [address] Social History Tobacco Use Types [...] Comments Blood Pressure 128/76 11/09/2019 1:19 PM BLOOD OR BLOOD BANK TECHNICIAN Pulse 59 11/09/2019 1:19 PM BLOOD OR BLOOD BANK TECHNICIAN Temperature - - Respiratory Rate 16 11/09/2019 1:19 PM BLOOD OR BLOOD BANK TECHNICIAN Oxygen Saturation 98% 11/09/2019 1:19 PM BLOOD OR BLOOD BANK TECHNICIAN Inhaled Oxygen Concentration - - Weight 82.6 kg (182 lb) 11/09/2019 1:19 PM BLOOD OR BLOOD BANK TECHNICIAN Height 167.6 cm (5' 6) 11/09/2019 1:19 PM BLOOD OR BLOOD BANK TECHNICIAN Body Mass Index 29.38 11/09/2019 1:19 PM BLOOD OR BLOOD BANK TECHNICIAN documented in this encounter Progress Notes Ramiro Lcoo MD - 11/09/2019 1:30 PM CST Speedy [...] Hendricks spent the last several months in [place]. Dr. Brown has left our practice. Mr. Hendricks presents to my vascular surgical office today to review a noncontrasted CT scan of the chest, abdomen, and pelvis and to once again discuss possible EVAR. He was accompanied by his daughter. He did have a fall while vacationing in [place] with multiple resultant rib fractures. Apart from [...] repair. I would absolutely refer him to [facility] to discuss those surgical options. Presently repair [...] in complete agreement with our plan. Total [id number] time was 40 minutes, greater than 50% spent providing counseling and education. David Loco MD D OR BLOOD BANK TECHNICIAN documented in this encounter Plan of [...] documented as of this encounter Care Teams Ethylene Oxide Panelboard Operator Relationship Specialty Start Date End Date [facility] PCP - General 05/12/[address] [place] [address] documented as of this encounter
--- OUTSIDE RECORDS SUMMARY | 2022-07-31 13:55 | XMS_ITS | Encounter Summary ---
:1940 Author Organization [facility] Address [address] [place] [address] Care Team Providers Name Role Phone Unavailable Primary Care Provider Unavailable Encounter Details Date Type Department Care Team Description 04/23/2022 Orders Only [facility] O f Denilson Quinones MD [address] [place] [address] [place], [place] [phone] [address] (Wo rk) Social History Tobacco Use [...] and its performa nce characteristics determined by [facility]. It has not been cleared or approved by the FDA. The laboratory is regulated under CLIA a s qualified to perform high complexity testing. This test is used fo r clinical purposes. It should not be regarded as investigational or fo r research. Test performed at [facility], [address] [place] [address]. Telephone . [facility] Direct or: Henok Correa MD. Specimen (Source) Anatomical Collection Method Collection Time Re ceived Time Location / / Volume Laterality 04/23/2022 04/25/2022 7:04 PM CDT Narrative [facility] - 04/27/2022 Unless otherwise specified, test(s) performed at: [facility], [address] [place] [address], [place] [address] ULTRASONIC TESTER: Raheem Malik M.D., Ph.D For any questions, [...] for the general public, refer to MMWR [facility] 2004/Vol.54 (No. 16); -, and for [...] 04/26/2022 Unless otherwise specified, test(s) performed at: [facility], [address] [place] [address], [place] [address] ULTRASONIC TESTER: Raheem Malik M.D., Ph.D For any questions, [...] 04/25/2022 Unless otherwise specified, test(s) performed at: [facility], [address] [place] [address], [place] [address] ULTRASONIC TESTER: Raheem Malik M.D., Ph.D For any questions, [...] 04/25/2022 Unless otherwise specified, test(s) performed at: [facility], [address] [place] [address] [place] [address] ULTRASONIC TESTER: Raheem Malik M.D., Ph.D For any questions, [...] 04/25/2022 Unless otherwise specified, test(s) performed at: [facility], [address] [place] [address] gideon [place] [address] ULTRASONIC TESTER: Raheem Malik M.D., Ph.D For any questions, please call customer service at FREQUENCY:MONTHLY Resulting Agency Comment Specimen source: Serum Denilson Holly MD LAB BLOOD ORDERABLES Performing Organization Address City/State/ZIP Code Phon e Number [facility] documented in this encounter Visit Diagnoses Not on filedocumented in this encounter
--- OUTSIDE RECORDS SUMMARY | 2022-07-31 13:55 | XMS_ITS | Encounter Summary ---
:1940 Author Organization [place] Address [address] [place] [address] Care Team Providers Name Role Phone Kehinde Portillo Primary Care Provider [phone] Encounter Details Date Type Department Care Team [...] documented as of this encounter Care Teams Bottling Equipment Sales Representative Relationship Specialty Start Date End Date [facility] - [facility] [place] [address] documented as of this encounter
--- OUTSIDE RECORDS SUMMARY | 2022-07-31 13:55 | XMS_ITS | Encounter Summary ---
:1940 Author Organization [facility] Address [address] [place] [address] Care Team Providers Name Role Phone Unavailable Primary Care Provider Unavailable Encounter Details Date Type Department Care Team Description 04/16/2022 Office Communication [facility] [place] MD [address] [place] [phone] Social History Tobacco Use [...]
--- OUTSIDE RECORDS SUMMARY | 2022-07-31 13:55 | XMS_ITS | Encounter Summary ---
:1940 Author Organization [facility] Address [address] [place] [address] Care Team Providers Name Role Phone Unavailable Primary Care Provider Unavailable Encounter Details Date Type Department Care Team Description 04/16/2022 Orders Only [facility] Denilson Quinones MD [address] [place] [address] [place], [place] [phone] (Wo rk) Social History Tobacco Use [...] and its performa nce characteristics determined by [facility]. It has not been cleared or approved [...] 04/17/2022 Unless otherwise specified, test(s) performed at: [facility], [address] [place] [address] COUNTER CUTTER: Henok Correa M.D. For any questions, please call customer service at FREQUENCY:MONTHLY Resulting Agency Comment Specimen source: Serum Denilson Holly MD LAB BLOOD ORDERABLES Performing Organization Address City/[facility] Code Phon e Number APS SPECTRA [...] above test result was obtained using Siemens Sweetie Highaur XP chemiluminescent method. Results obtaine d with different assay methods or kits cannot be used interchangeably. Specimen (Source) Anatomical Collection Method Collection Time Re ceived Time Location / / Volume Laterality 04/16/2022 04/17/2022 9:14 AM CDT Narrative APS SPECTRA [facility] - 04/17/2022 Unless otherwise specified, test(s) performed at: [facility], [address] [place] [address] COUNTER CUTTER: Henok Correa M.D. For any questions, please call customer service at FREQUENCY:MONTHLY Resulting Agency Comment Specimen source: Serum Denilson Holly MD LAB BLOOD ORDERABLES Performing Organization Address City/[facility] Code Phon e Number APS SPECTRA [facility] (ABNORMAL) Spectrae Chemistry (04/16/2022) P athologist Signature PTH 108 (H) 16 - 80 APS SPECTRA pg/mL [facility] Specimen (Source) Anatomical Collection Method Collection Time Re ceived Time Location / / Volume Laterality 04/16/2022 04/17/2022 9:16 AM CDT Narrative APS SPECTRA [facility] - 04/17/2022 Unless otherwise specified, test(s) performed at: [facility], [address] [place] [address] COUNTER CUTTER: Henok Correa M.D. For any questions, please call customer service at FREQUENCY:MONTHLY Resulting Agency Comment Specimen source: Plasma Denilson Holly MD LAB BLOOD ORDERABLES Performing Organization Address City/[facility] Code Phon e Number APS SPECTRA [facility] HD KINETICS (04/16/2022) P athologist Signature % Urea 69 65 - 80 % APS SPECTRA Reduction [facility] Specimen (Source) Anatomical Collection Method Collection Time Re ceived Time Location / / Volume Laterality 04/16/2022 04/17/2022 9:14 AM CDT Resulting Agency Comment Specimen source: Serum Denilson Holly MD LAB BLOOD ORDERABLES Performing Organization Address City[facility] [...] 04/17/2022 Unless otherwise specified, test(s) performed at: [facility], [address] [place] [address] COUNTER CUTTER: Henok Correa M.D. For any questions, please [...] 04/17/2022 Unless otherwise specified, test(s) performed at: [facility], [address] [place], [place] [id number] COUNTER CUTTER: Henok Correa M.D. For any questions, please call customer service at FREQUENCY:MONTHLY Resulting Agency Comment Specimen source: Serum Denilson Holly MD LAB BLOOD ORDERABLES Performing Organization Address City/State/ZIP Code Phon e Number APS SPECTRA [facility] GFR (04/16/2022) P athologist Signature eGFR CKD-EPI CR 28 mL/min APS SPECTRA 2020 [facility] Comment: [facility] has implemented the recommended eGFR calculation that [...] 04/17/2022 Unless otherwise specified, test(s) performed at: [facility], [address] [place] [address] COUNTER CUTTER: Henok Correa M.D. For any questions, please call customer service at FREQUENCY:MONTHLY Resulting Agency Comment Specimen source: Serum Denilson Holly MD LAB [id number] NSOLICITED RESULTS Performing Organization Address City/State/ZIP Code Phon e Number APS SPECTRA [facility] (ABNORMAL) HEMATOLOGY (04/16/2022) [facility] gist Method Time Signature WBC 7.73 [...] 04/17/2022 Unless otherwise specified, test(s) performed at: [facility], [address] [place] [address] COUNTER CUTTER: Henok Correa M.D. For any questions, please call customer service at FREQUENCY:MONTHLY Resulting Agency Comment Specimen source: Blood Denilson Holly MD LAB BLOOD ORDERABLES Performing Organization Address City/State/ZIP Code Phon e Number APS SPECTRA [facility] documented in this encounter Visit Diagnoses Not on filedocumented in this encounter
--- OUTSIDE RECORDS SUMMARY | 2022-07-31 13:55 | XMS_ITS | Encounter Summary ---
:1940 Author Organization [place] Address [address] [facility] [address] Care Team Providers Name Role Phone [facility], [facility] Primary Care Provider [phone] Reason for Visit Diagnostic Imaging CT Scan (Routine) - Closed Specialty Diagnoses / Procedures Referred By Contact Refer red To Contact Diagnoses Thoracic aortic aneurysm without rupture Abdominal aortic aneurysm (AAA) without rupture Ramiro Loco MD Procedures CT Chest Abdomen Pelvis w/o Contrast CTA Chest Abdomen Pelvis w Contrast [address] [place] [address] Referral ID Status Reason Start Date Expiration Date Visits Requ ested Visits Authorized [id number] Closed 11/29/2019 11/28/2020 1 1 Encounter Details Date Type Department Care Team Description 08/08/[address] [facility] Ramiro Loco oracic aortic aneurysm without rupture (H); [facility] Gisela Garcia MD Abdominal aortic aneurysm (AAA) without rupture (H) [address] [place] [address] [place] [address] [phone] Social History Tobacco Use Types Packs/Day Years [...] CT CHEST ABDOMEN PELVIS W/O CONTRAST LOCATION: [facility] DATE/TIME: 08/08/2021 4:20 PM INDICATION: history [...] vertebral body uncha nged. Procedure Note Noe Oneill DO - 2020 EXAM: CT CHEST ABDOMEN PELVIS W/O CONTRA ST LOCATION: [facility] DATE/TIME: 08/08/2021 4:20 PM INDICATION: history [...] POC GFR, ESTIMATED 28 (L) >60 08/08/2021 [facility] LABORATORY POCT mL/min/1.7 4:17 PM CDT POC 3m2 Specimen Anatomical Collection Method Collection Time Receive d Time (Source) Location / / Volume Laterality Blood BLOOD SPECIMEN / 08/08/2021 4:13 PM 08/08 4:17 Unknown CDT PM CDT Ramiro Loco MD LAB - BEAKER POCT Performing Organization Address City/State/ZIP Code Phon [place] [address] Care Lab [address] floor, [...] documented as of this encounter Care Teams Sleep Manager Relationship Specialty Start Date End Date [facility] PCP - General 05/12/[address] [place] [address] documented as of this encounter
--- OUTSIDE RECORDS SUMMARY | 2022-07-31 13:55 | XMS_ITS | Encounter Summary ---
:1940 Author Organization [place] Address [address] [place] [address]. [place] [address] Care Team Providers Name Role Phone Clinic, [facility] Primary Care Provider [phone] Reason for Visit Reason Onset Date Comments Clinic Care Coordination - Follow-up 11/15/2019 Encounter Details Date Type Department Care Team Description 11/15/2019 Telephone [facility] Ramiro Loco Cli [facility] Félix juarez MD Coordination - [address] Follow-up 340 [address] [place] [address] [place] [address] (Wo rk) Social History Tobacco Use Types [...] 9:12 AM CST Order entered. SHASTA Winkler, RN-[facility] MENT EDUCATION SPECIALIST Telephone Encounter - Ro Taylor RN - 11/25/2019 2:34 PM CST Pt called back, left vm to discuss lab request (creat/gfr). I called pt back, pt reports labs completed on 11/24/19 at [facility]. Per [facility] Creat 1.5 and GFR 55 on 11/24/19. I explained to pt he does not need another lab draw and we will work with these lab results. Pt notes understanding. Routing to Dr. Loco's nurse Leatha for placement of imaging order (to be done in 6 months) per Dr[address] Loco's request. SHASTA Sotomayor, JOSE [facility] [place] MENT EDUCATION SPECIALIST Telephone Encounter - Ro Taylor RN - 11/25/2019 1:49 PM CST Pt called back , left vm to discuss labs ordered by Dr. Loco. SHASTA Sotomayor, JOSE [facility] MENT EDUCATION SPECIALIST Telephone Encounter - Ro Taylor RN - 11/15/2019 2:41 PM CST Creatinine check/lab order placed in [facility]. I called pt, left vm explaining he can get this checked at his convenience, upon results we will then order his follow up imaging and OV per Dr. Loco and to call if any questions. SHASTA Sotomayor, JOSE [facility] [place] MENT EDUCATION SPECIALIST Telephone Encounter - Ro Taylor RN - 11/15/2019 2:[address] Loco We will recheck his creatinine. I will see him back again in 6 months with either a standard CTA of the chest, abdomen and pelvis versus a noncontrasted study depending upon his renal function. Will order recheck of creatinine, based on creatinine results will order either CTA or CT of chest/abd/pelvis. SHASTA Sotomayor, RN [facility] MENT EDUCATION SPECIALIST documented in this encounter Plan of [...] as of this encounter Care Teams Traffic Assistant Relationship Specialty Start Date End Date [facility] [place] PCP - General 05/12/[address] [place] [address] documented as of this encounter
--- OUTSIDE RECORDS SUMMARY | 2022-07-31 13:55 | XMS_ITS | Encounter Summary ---
:1940 Author Organization [place] Address [address] [place] [address] Care Team Providers Name Role Phone [facility], [facility] Primary Care Provider [phone] Gallito Gonzalez MD Unavailable Encounter Details Date Type Department Care Team Description 11/04/2021 Telephone [facility] Gallito Gonzalez, Clinic Tram [place] [address] [place] [address] [place] [phone] (Wo rk) Social History Tobacco Use Types [...] Gonzalez and pt notified. SHASTA Sotomayor, JOSE [facility] [place] Office: [phone] Telephone Encounter - Ro Taylor RN - 11/26/2021 1:[address] Gonzalez, Dr. Orosco was notified. Awaiting further direction from Dr. Gonzalez upon their discussion and to ensure pts daughter is notified. SHASTA Sotomayor, JOSE [facility] [place] Office: [phone] MOTIVE SHOP FOREMAN Telephone Encounter - Ro Taylor RN - 11/04/2021 4:56 PM CST JAMES 09/23/[address] Gonzalez I will get in touch with the patient's daughter after I discussed the case with Dr. Orosco Routing to Dr. Gonzalez for update on this/plan and verification of pts daughter contacted. SHASTA Sotomayor, RN [facility] [place] Office: [phone] MOTIVE SHOP FOREMAN documented in this encounter Plan of Treatment Not on filedocumented as of this encounter Visit Diagnoses Not on filedocumented in this encounter Additional Health Concerns Infection Onset Date Last Indicated Resolved Time MRSAComment: Positive 02/17/11 and 09/22/12 11/05/2018 019 Negatives 05/03/14 (HE), 12/01/14 (HE) documented as of this encounter Care Teams Chiropractic Doctor Relationship Specialty Start Date End Date [facility], [facility] PCP - General 05/12/[address] [place] [address] Gallito Gonzalez MD Assigned Heart and Vascular 09/29/21 [address] Provider [place] [id number] documented as of this encounter
--- OUTSIDE RECORDS SUMMARY | 2022-07-31 13:55 | XMS_ITS | Encounter Summary ---
:1940 Author Organization [place] Address [address] [place] [address] Care Team Providers Name Role Phone [facility], [facility] Primary Care Provider [phone] Reason for Visit Reason Comments RECHECK *PREV Dr Lewis, Dr Brown & Dr Loco Pt - CTA done 08/08/21- History of thoracoabdominal aortic aneu rysm; TEVAR 11/05/18; 6 mo f/u to 11/09/[address] Loco *jj Pt is sti ll having back pain *LMB 08/19/21 - R/S from 08/29/21 *B 08/28/21 Encounter Details Date Type Department Care Team Description 09/23/2021 Office Visit [facility] Gallito Gonzalez Thoracoa bdominal aortic Vascular Clinic MD Eliel aneurysm (TAAA) without Tram [address] rupture (H) (Primary Dx) [address] [place] [address] [place] [phone] Social History Tobacco Use Types Packs/Day Years [...] with No / Unsure 09/23/2021 10:26 AM PRODUCTION HONING MACHINE OPERATOR someone who was confirmed or suspected to have Coronavirus / COVID-19? documented as of this encounter Last Filed Vital Signs Vital Sign Reading Time Taken Comments Blood Pressure 161/78 09/23/2021 10:34 AM PRODUCTION HONING MACHINE OPERATOR Pulse 57 09/23/2021 10:34 AM PRODUCTION HONING MACHINE OPERATOR Temperature - - Respiratory Rate 16 09/23/2021 10:34 AM PRODUCTION HONING MACHINE OPERATOR Oxygen Saturation 99% 09/23/2021 10:34 AM PRODUCTION HONING MACHINE OPERATOR Inhaled Oxygen Concentration - - Weight 79.4 kg (175 lb) 09/23/2021 10:34 AM PRODUCTION HONING MACHINE OPERATOR Height 167.6 cm (5' 6) 09/23/2021 10:34 AM PRODUCTION HONING MACHINE OPERATOR Body Mass Index 28.25 09/23/2021 10:34 AM PRODUCTION HONING MACHINE OPERATOR documented in this encounter Progress Notes Von Landeros CMA - 09/23/2021 10:30 AM CST [facility] Vascular Clinic Patient is here for a [...] No Has homecare services and agency name: Kelsey Landeros CMA UCTION HONING MACHINE OPERATOR Galliot Gonzalez MD - 09/23/2021 10:30 AM CST Mr. Hendricks is a 81-year-old male who is well-known to the vascular [facility] with and as such has been previously seen by Drs. Lewis, Stephanie and Claudy. He has what I would [...] I discussed the case with Dr. Orosco. UCTION HONING MACHINE OPERATOR documented in this encounter Plan of Treatment Not on filedocumented as of this encounter Visit Diagnoses Diagnosis Thoracoabdominal aortic aneurysm (TAAA) without rupture - Primary documented in this encounter Additional Health Concerns Infection Onset Date Last Indicated Resolved Time MRSAComment: Positive 02/17/11 and 09/22/12 11/05/2018 019 Negatives 05/03/14 (HE), 12/01/14 (HE) documented as of this encounter Care Teams Model Making Supervisor Relationship Specialty Start Date End Date Clinic, [facility] PCP - General 05/12/17 [address] [place] [address] documented as of this encounter
--- OUTSIDE RECORDS SUMMARY | 2022-07-31 13:56 | XMS_ITS | Encounter Summary ---
:1940 Author Organization [place] Address [address] [place] [address] Care Team Providers Name Role Phone Kehinde Portillo Primary Care Provider [phone] Encounter Details Date Type Department Care Team [...] documented as of this encounter Care Teams Key Account Representative Relationship Specialty Start Date [facility] - [facility] [place] [address] documented as of this encounter
--- OUTSIDE RECORDS SUMMARY | 2022-07-31 13:56 | XMS_ITS | Encounter Summary ---
:1940 Author Organization [place] Address [address] [place] [address] Care Team Providers Name Role Phone Clinic, [facility] Primary Care Provider Reason for Visit Reason Comments RECHECK 1st PO; THORACIC ENDOVASCULA R ANEURYSM REPAIR WITH [employer]TRONIC GRAFT Encounter Details Date Type Department Care Team Description 11/26/2018 Office Visit [facility] Butch Brown Thoracic a ortic Vascular Clinic Félix Jay MD aneurysm without [address] ru pture (H) (Primary [address] Dx) [place] [address] [place] [address] Social History Tobacco Use Types Packs/Day Years [...] Comments Blood Pressure 146/70 11/26/2018 10:47 AM SPEED READING TEACHER Pulse 66 11/26/2018 10:47 AM SPEED READING TEACHER Temperature - - Respiratory Rate - - Oxygen Saturation - - Inhaled Oxygen Concentration - - Weight 87.5 kg (193 lb) 11/26/2018 10:47 AM SPEED READING TEACHER Height 167.6 cm (5' 6) 11/26/2018 10:47 AM SPEED READING TEACHER Body Mass Index 31.15 11/26/2018 10:47 AM SPEED READING TEACHER documented in this encounter Patient Instructions Patient InstructionsVon Landeros CMA - 11/26/2018 11:00 AM SPEED READING TEACHER Patient to follow up with Primary Care provider regarding elevated blood pressure. D READING TEACHER documented in this encounter Progress Notes [...] kg). Pain Score: Data Unavailable Von Landeros D READING TEACHER Butch Brown MD - 11/26/2018 11:00 AM [...] AAA. Plan: I will plan to see Edward back at the 6 month post-op visit [...] 5.0-5.5 cm. Butch Brown MD Vascular Surgery D READING TEACHER documented in this encounter Plan of [...] documented as of this encounter Care Teams Conveyor Belt Operator Relationship Specialty Start Date End Date Kehinde Portillofield PCP - General 05/12/[address] [place], [place] [phone] documented as of this encounter
--- OUTSIDE RECORDS SUMMARY | 2022-07-31 13:56 | XMS_ITS | Encounter Summary ---
:1940 Author Organization [place] Address [address] [facility] [address] Care Team Providers Name Role Phone [facility], [facility] Primary Care Provider [phone] Encounter Details Date Type Department Care Team Description 11/12/2018 Telephone [facility] Butch Brown MD Clinic [place] [address] [place] [address] [place] [id number] (Wo rk) Social History Tobacco Use Types [...] Miscellaneous Notes Telephone Encounter - Aruna Simmons - 11/12/2018 3:36 PM CST Spoke with [...] that f/u with Dr. Brown. Aruna Simmons, Tobacco Hanger UATE INTERN documented in this encounter Plan of Treatment Not on filedocumented as of this encounter Visit Diagnoses Not on filedocumented in this encounter Additional Health Concerns Infection Onset Date Last Indicated Resolved Time MRSAComment: Positive 02/17/11 and 09/22/12 11/05/2018 019 Negatives 05/03/14 (HE), 12/01/14 (HE) documented as of this encounter Care Teams Dye Stand Loader Relationship Specialty Start Date End Date [facility], [facility] PCP - General 05/12/[address] [place] [address] documented as of this encounter
--- OUTSIDE RECORDS SUMMARY | 2022-07-31 13:56 | XMS_ITS | Encounter Summary ---
:1940 Author Organization [place] Address [address] [place] [address]. [place] [address] Care Team Providers Name Role Phone Clinic, [facility] Primary Care Provider [phone] Encounter Details Date Type Department Care Team Description 11/26/2018 [facility] Butch Brown Thoracic a ortic Vascular Clinic Félix Jay MD aneurysm (H) (Primary [address] Dx ) [address] [place] [address] [place] [id number] Social History Tobacco Use Types Packs/Day Years [...] documented as of this encounter Care Teams Commercial Lines Account Assistant Relationship Specialty Start Date End Date Clinic, Kehinde Santos PCP - General 05/12/17 [address] [place] [id number] documented as of this encounter
--- OUTSIDE RECORDS SUMMARY | 2022-07-31 13:56 | XMS_ITS | Encounter Summary ---
:1940 Author Organization [place] Address [address] [place] [address] Care Team Providers Name Role Phone Clinic, [facility] Primary Care Provider [phone] Reason for Visit Diagnostic Imaging CT Scan (Routine) - Closed Specialty Diagnoses / Procedures Referred By Contact Refer red To Contact Radiology. Diagnoses Thoracic aortic aneurysm Butch Brown MD Ct Scan Procedures CT Chest Abdomen Pelvis w/o Contrast CTA Chest Abdomen Pelvis w Contrast [address] [place] [address] [place] [address] Referral ID Status Reason Start Date Expiration Date Visits Requ ested Visits Authorized [id number] Closed 11/26/2018 11/26/2019 1 1 Encounter Details Date Type Department Care Team Description 05/17/[address] [facility] Butch Brown Thor acic aortic [facility] MD Pierre aneurysm (H) [address] [place] [address] [address] [place] [address] Social History Tobacco Use Types Packs/Day Years [...] CDT 10:23 AM CDT Butch Brown MD [facility] PO[facility] Performing Organization Address City/State/ZIP [...] documented as of this encounter Care Teams Bridal Gown Fitter Relationship Specialty Start Date End Date [facility], [facility] PCP - General 05/12/[address] [place] [address] documented as of this encounter
--- OUTSIDE RECORDS SUMMARY | 2022-07-31 13:56 | XMS_ITS | Encounter Summary ---
:1940 Author Organization [place] Address [address] [place] [address] Care Team Providers Name Role Phone Kehinde Portillo Primary Care Provider [phone] Encounter Details Date Type Department Care Team [...] documented as of this encounter Care Teams Acute Care Nursing Assistant Relationship Specialty Start Date End Date [facility], Kehinde Santos PCP - General 05/12/[address] [place] [address] documented as of this encounter
--- OUTSIDE RECORDS SUMMARY | 2022-07-31 13:56 | XMS_ITS | Encounter Summary ---
:1940 Author Organization [place] Address [address] [facility] [place] [address] Care Team Providers Name Role Phone Clinic, [facility] Primary Care Provider [phone] Reason for Visit Reason Comments RECHECK History of thoracic aortic a neurysm without rupture; 6 month follow up to 11-26-[address] Brown Encounter Details Date Type Department Care Team Description 05/17/2019 Office Visit [facility] Butch Brown Abdominal aortic aneurysm (AAA) without rupture (H) (Primary Dx); Vascular Clinic Félix Jay MD Thoracic aortic aneurysm without rupture (H) [address] [place] [address] [place] [address] [phone] Social History Tobacco Use Types Packs/Day Years [...] aneurysms. The patient plans to go to [place] this fall and is back sometime in [...] previously covered. I spent 15 minutes of [id number]-dhph time, > 50% spent counseling and coordinating care. Bucth Brown MD Vascular Surgery documented in this [...] documented as of this encounter Care Teams Nurse Assessor Relationship Specialty Start Date End Date [facility], [facility] PCP - General 05/12/17 [address] [place] [address] documented as of this encounter
--- OUTSIDE RECORDS SUMMARY | 2022-07-31 13:56 | XMS_ITS | Encounter Summary ---
:1940 Author Organization [place] Address [address] [facility] [place] [address] Care Team Providers Name Role Phone [facility], [facility] Primary Care Provider [phone] Reason for Referral Diagnostic Imaging CT Scan - Closed Specialty Diagnoses / Procedures Referred By Contact Refer red To Contact Radiology. Diagnoses Thoracic aortic aneurysm Juan Lewis MD Ct Scan Procedures CTA Chest Abdomen Pelvis w Contrast [address] [place] [address] [place] [phone] Referral ID Status Reason Start Date Expiration Date Visits Requ ested Visits Authorized [id number] Closed 11/12/2018 11/12/2019 1 1 F CONSULTANT Encounter Details Date Type Department Care Team Description 11/12/2018 [facility] Only [facility] Juan Lewis Thoracic aortic [facility] Félix Nava MD aneurysm (H) (Primary [address] ) [address] [place] [phone] [place] [id number] Social History Tobacco Use Types Packs/Day Years [...] Abdomen Pelvis w Contrast (11/26/2018 9:03 AM STAFF CONSULTANT) Anatomical Region Laterality Modality Lower Extremity, SUBRAD IR PROCEDURE, UMP CT CTA, RAD Computed Tomography CT Specimen (Source) Anatomical Location Collection Method / Collectio n Time Received Time / Laterality Volume Impressions 11/26/2018 4:44 PM STAFF CONSULTANT IMPRESSION: 1. New thoracic aortic endograft. Tandem areas of aneurysmal dilatation are relatively unchanged in s ize. No visible endoleak. Recommend annual surveillance. 2. Infrarenal abdominal aortic aneurysm measuring 4.6 x 4.6 cm, unchanged. 3. Somewhat irregular fluid collection i n left groin, likely postoperative seroma. Surrounding enlarg ed lymph nodes. TANNER STARKS MD Narrative 11/26/2018 4:44 PM STAFF CONSULTANT CTA CHEST, ABDOMEN AND PELVIS WITH [...] documented as of this encounter Care Teams Garage Construction Equipment Mechanic Relationship Specialty Start Date End Date [facility], [facility] PCP - General 05/12/[address] [place] [phone] documented as of this encounter
--- OUTSIDE RECORDS SUMMARY | 2022-07-31 13:56 | XMS_ITS | Encounter Summary ---
:1940 Author Organization [place] Address [address] [place] [address] Care Team Providers Name Role Phone [facility], [facility] Primary Care Provider [phone] Reason for Referral Diagnostic Imaging CT Scan - Closed Specialty Diagnoses / Procedures Referred By Contact Refer red To Contact Radiology. Diagnoses Thoracic aortic aneurysm Juan Lewis MD Ct Scan Procedures CTA Chest Abdomen Pelvis w Contrast [address] [place] [address] [place] [phone] Referral ID Status Reason Start Date Expiration Date Visits Requ ested Visits Authorized [id number] Closed 11/12/2018 11/12/2019 1 1 MENT COORDINATOR Reason for Visit Diagnostic Imaging CT Scan - Closed Specialty Diagnoses / Procedures Referred By Contact Refer red To Contact Radiology. Diagnoses Thoracic aortic aneurysm Juan Lewis MD Ct Scan Procedures CTA Chest Abdomen Pelvis w Contrast [address] [place] [address] [place] [phone] Referral ID Status Reason Start Date Expiration Date Visits Requ ested Visits Authorized [id number] Closed 11/12/2018 11/12/2019 1 1 Encounter Details Date Type Department Care Team Description 11/26/2018 [facility] Non-Fv Credentialed Pro vider, Lab Thoracic aortic Encounter [facility] Imaging Butch Brown MD [address] [place] [id number] aneurysm (H) [address] [place] [phone] Social [...] R esults for this PELVIS W CONTRAST DOCUMENT COORDINATOR aneurysm (H) procedure are in the results section. documented in this encounter Results CTA Chest Abdomen Pelvis w Contrast (11/26/2018 9:03 AM DOCUMENT COORDINATOR) Anatomical Region Laterality Modality Lower Extremity, SUBRAD IR PROCEDURE, UMP CT CTA, RAD Computed Tomography CT Specimen (Source) Anatomical Location Collection Method / Collectio n Time Received Time / Laterality Volume Impressions 11/26/2018 4:44 PM DOCUMENT COORDINATOR IMPRESSION: 1. New thoracic aortic endograft. Tandem areas of aneurysmal dilatation are relatively unchanged in s ize. No visible endoleak. Recommend annual surveillance. 2. Infrarenal abdominal aortic aneurysm measuring 4.6 x 4.6 cm, unchanged. 3. Somewhat irregular fluid collection i n left groin, likely postoperative seroma. Surrounding enlarg ed lymph nodes. TANNER STARKS MD Narrative 11/26/2018 4:44 PM DOCUMENT COORDINATOR CTA CHEST, ABDOMEN AND PELVIS WITH [...] ([id number]) solution 80 Given 11/26/2018 8:30 AM DOCUMENT COORDINATOR 80 mLs mL 80 mL, Intravenous, ONCE, On Thu11/26/18 at 0830, For 1 dose Saline Flush Given 11/26/2018 8:30 AM DOCUMENT COORDINATOR 80 mLs Intravenous, 80 mL, ONCE, [...] as of this encounter Care Teams Educational Interpreter Relationship Specialty Start Date End Date [facility], [facility] PCP - General 05/12/[address] [place] [phone] documented as of this encounter
--- OUTSIDE RECORDS SUMMARY | 2022-07-31 13:57 | XMS_ITS | Encounter Summary ---
:1940 Author Organization [place] Address [address] [place] [address]. [place] [address] Care Team Providers Name Role Phone Clinic, [facility] Primary Care Provider [phone] Reason for Visit Surgical Procedure Inpatient (Routine) - Closed Specialty Diagnoses / Procedures Referred By Contact Refer red To Contact Vascular Surgery / Diagnoses DESCENDING THORACIC AORTIC ANEURYSM Juan Vásquez Brett Surgery Procedures *OR51*DR. VÁSQUEZ/DR. GARVIN*THORACIC ENDOVASCULAR ANEURYSM REPAIR WITH [facility]FT MD Pierre Nava MD [address] [place] [address] [place] [address] Fax: Referral ID Status Reason Start Date Expiration Date Visits Requ ested Visits Authorized [id number] Closed 11/05/2018 11/05/2019 1 1 Encounter Details Date Type Department Care Team Description 11/05/2018 Office Visit SX SURGERY CASES Butch Garvin MD [address] [place] [address] Juan Vásquez MD [address] [place] [phone] Fellow, Sh Surg Cons Social History Tobacco [...] documented as of this encounter Care Teams Resizer Operator Relationship Specialty Start Date End Date [facility] PCP - General 05/12/[address] [place] [phone] documented as of this encounter
--- OUTSIDE RECORDS SUMMARY | 2022-07-31 13:57 | XMS_ITS | Encounter Summary ---
:1940 Author Organization [place] Address [address] [place] [phone] Care Team Providers Name Role Phone Kehinde Portillo Primary Care Provider [phone] Encounter Details Date Type Department Care Team [...] documented as of this encounter Care Teams Driver Guide Relationship Specialty Start Date End Date [facility], Kehinde Santos PCP - General 05/12/[address] [place] [address] documented as of this encounter
--- OUTSIDE RECORDS SUMMARY | 2022-07-31 13:57 | XMS_ITS | Encounter Summary ---
:1940 Author Organization [place] Address [address] [facility] 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 Periop Services Procedures ENDOVASCULAR REPAIR ANEURYSM THORACIC AORTIC [address], [address] [place] [address] Phone: Referral ID Status Reason Start Date Expiration Date Visits Requ ested Visits Authorized [id number] 1 1 Encounter Details Date Type Department Care Team Description 11/05/2018 Surgery [facility] Juan Lewis THORACIC ENDOVASCULAR [place] PeriOP MD Elijah ANEURYSM REPAIR WITH Services [address] [employer] [address], [address] [place] [address] [place] [address] [phone] Surgery Details Date/Time Status Location OR Service [...] DO A TYPE AND CROSS ON 11/03 AJLEEL 10/28 documented in this encounter Social History [...] Comments Blood Pressure 159/88 11/05/2018 9:00 AM NURSE ADVISOR Pulse 57 11/05/2018 9:00 AM NURSE ADVISOR Temperature 36.7 ??C (98.1 ??F) 11/05/2018 6:27 AM NURSE ADVISOR Respiratory Rate 21 11/05/2018 9:05 AM NURSE ADVISOR Oxygen Saturation 100% 11/05/2018 9:05 AM NURSE ADVISOR Inhaled Oxygen Concentration - - Weight 84.3 kg (185 lb 14.4 oz) 11/05/2018 6:27 AM NURSE ADVISOR Height 167.6 cm (5' 6) 11/05/2018 6:27 AM NURSE ADVISOR Body Mass Index 31.06 11/05/2018 6:27 AM NURSE ADVISOR documented in this encounter Discharge Summaries Bessy Mccray MD - 11/09/2018 10:56 AM CST Physician Discharge Summary Patient ID: Speedy Hendricks [id number] 78 year old 1940 Admit date: 11/05/2018 [...] an oral diet. He was discharged to [facility] on POD#4 in stable condition. [...] to. Signed: Bessy Mccray 11/09/2018 10:56 AM E ADVISOR Associated attestation - Juan Lewis MD - 11/11/2018 3:10 PM NURSE ADVISOR Physician Attestation I, Juan Lewis, have reviewed [...] Traylor RN - 11/09/2018 11:47 AM CST E ADVISOR AttachmentsThe following attachments cannot be sent through Care Everywhere.(S) TREATING A THORACIC AORTIC ANEURYSM (TAA): ENDOVASCULAR GRAFT ([place]RA[place]) documented in this encounter Medications at Time [...] home with family via car.All questions answered. E ADVISOR Gurwinder Godoy MD - 11/09/2018 12:[address] [facility] Vascular Medicine Progress Note Date of Service (when I saw the patient): 11/09/2018 Physician Supervisory Attestation: I have reviewed and discussed with the physician server assistant their history, physical and plan and [...] Discussed with vascular surgery service. Gurwinder Godoy MD,[facility] Vascular Medicine service 11/09/2018 [...] Rate: 93 Resp: 22 SpO2: 93 % M0Mdidce: None (Room air) Vitals: 11/06/18 0211 11/07/18 [...] = values in this interval not displayed. E ADVISOR Bessy Mccray MD - 11/09/2018 7:36 AM [...] Bessy Martinez MD Vascular Surgery Fellow Pager E ADVISOR Associated attestation - Butch Brown MD - 11/16/2018 9:50 AM NURSE ADVISOR I was involved with the assessment and plan, and I agree with the findings and plan of care as documented in the fellow's note. MD Wilfredo Castillo Carley, JOSE - 11/08/2018 6:35 PM CST Pt arrived to station 33 @ 1820 E ADVISOR Aura Crooks RN - 11/08/2018 5:05 PM CST Pt had drained removed this AM. Draining moderate amount- MDA aware. SR. BP wnl- gave hydralazine x1prn. Chapman to be removed prior to transfer. Lines out and hemostasis achieved. Up to chair- tolerated well, SBA. Frequent neuros- wnl. Will call report to [facility] and will transfer at . E ADVISOR Dimas Chapman MD - 11/08/2018 12:[address] [facility] Vascular Medicine Progress Note Date [...] -- AST 19 -- -- -- -- E ADVISOR Bessy Mccray MD - 11/08/2018 8:18 AM [...] Bessy Martinez MD Vascular Surgery Fellow Pager E ADVISOR Associated attestation - Butch Brown MD - 11/16/2018 3:00 PM NURSE ADVISOR I was involved with the assessment and plan, and I agree with the findings and plan of care as documented in the fellow's note. Butch [place]MD Michael Steve William, NP - 11/08/2018 8:01 AM [...] please contact primary service first. Kaleb Rodriguez Kristy Geiger RN - 11/08/2018 6:50 AM CST 0600 [...] drain tubing following [place]cl[place] [address] down from 100s yesterday. At this time, [...] BALDEMAR 8.2* 7.8* 8.6 -- CO2 20 22 -- BUN 23 27 24 -- [...] Christina Burrell MD Vascular Surgery Fellow Pgr E ADVISOR Bishop Tran MD - 11/07/2018 11:55 AM CST Chief Of Police: S: Mild groin pain this morning, but [...] Dr. Staley of vascular medicine at bedside. Chief Of Police service will sign off for now. Please re-consult as needed. E ADVISOR Gurwinder Godoy MD - 11/07/2018 9:[address] [facility] Vascular Medicine Progress Note Date [...] If any change in neuro status contact [facility] surgery first and consider neurocritical [...] good Reviewed last night events, discussed with Chief Of Police and ICU nursing staff this am. Patients daughter at bedside , discussedwith her. He is having difficulty in lying down flat , requesting muscle relaxants flexeril 5-10 tid prn Replace mag low dose protocol due to CKD Sodium elevated free water deficit . Encourage po water intake, change IVF NS to D 5 10/20 NS 100 /hr Leave chapman as long [...] . Avoid nephrotoxic meds. ?? Gurwinder Godoy MD,[facility] Vascular Medicine Interval History [...] 7.8* 8.6 -- GLC 115* 121* -- E ADVISOR Danette Peck RN - 11/07/2018 8:50 AM [...] to keep SBP <160 and MAP >80. E ADVISOR Gurwinder Godoy MD - 11/06/2018 12:[address] [facility] Vascular Medicine Progress Note Date [...] . Avoid nephrotoxic meds. ?? Gurwinder Godoy MD,[facility] Vascular Medicine Interval History [...] 7.8* 8.6 -- GLC 115* 121* -- E ADVISOR Millie Handley APRN JACK MACHINE OPERATOR - 11/06/2018 11:55 AM CST Critical Care [...] Total critical care time today 35 min. E ADVISOR Associated attestation - Bishop Tran MD - 11/12/2018 10:50 AM NURSE ADVISOR Physician Attestation I, Bishop Tran, have reviewed [...] sufficient urine. Continue plan as documented in RUG DRY ROOM ATTENDANT note. The patient does not seem to [...] Christina Burrell MD Vascular Surgery Fellow Pgr E ADVISOR Danette Peck RN - 11/06/2018 9:15 AM CST 0845: While leveled, asleep and lying on L, SCP Increased to 15-23. I: opened drain for 5 min resulting in 2cc clear liquid. I: Clamped. E: SCP decreased to 14. Turned to R side, SCP 3-7. E ADVISOR Michelle Villalta - 11/05/2018 6:05 AM CST Admission medication history interview status for the 11/05/2018 admission is complete. See [facility] admission navigator for prior to admission medications Medication history source reliability:Good Medication history interview source(s):Patient Medication history resources (including written lists, pill bottles, clinic record):Patient mailed in his medication list prior to surgery Primary pharmacy.[place] Additional medication history information not noted on INSURANCE EXAMINER med list :None Time spent in this [...] Bedtime 11/04/2018 at 2200 Yes Reported, Patient E ADVISOR documented in this encounter Procedure Notes Missael [...] management per anethesia/vasc surg Missael Garcia MD [phone] E ADVISOR documented in this encounter Consult Notes Kaleb Rodriguez NP - 11/05/2018 5:14 PM CSTAssociated Order(s): PORT CAPTAIN IP CONSULT [facility] Consult Critical Care Service Date [...] Code Status Full Code Primary Care Physician [facility] Chief Complaint S/p TEVAR History of [...] IR Lumbar Drain Placement w Fluoro Narrative [facility] RADIOLOGY INTERVENTIONAL NEURORADIOLOGY PROCEDURAL NOTE FLUOROSCOPICALLY [...] CPT codes included for physician reference only: 69624/36543 MISSAEL GARCIA MD Glucose by meter Result Value Ref Range Glucose 124 (H) 70 - 99 mg/dL E ADVISOR Associated attestation - Olive Bello MD - 11/05/2018 10:58 PM NURSE ADVISOR ICU STAFF: I have discussed Mr. Hendricks's [...] management per vascular surgery. Olive Bello MD #[id number] 11/05/18 Bill as Advanced Practice Provider only. Gurwinder Godoy MD - 11/05/2018 1:[address] [facility] Vascular Medicine Consultation Date of Admission: 11/05/2018 Date of Consult (When I saw the patient): 11/05/18 Physician Supervisory Attestation: I have reviewed and discussed with the physician server assistant their history, physical and plan and [...] consult Copy to Dr. Debbie Godoy MD ,[facility] Vascular Medicine 11/05/2018 Assessment [...] 78 year old male Primary Care Physician [facility] History of Present Illness Speedy [...] Recent 3 INR's: Recent Labs Lab Test 11/14/179 INR 0.96 Most Recent Cholesterol Panel: Recent Labs Lab Test 11/05/18 0655 CHOL 128 LDL 44 HDL 59 TRIG 125 Most Recent Hemoglobin A1c: Recent Labs Lab Test 11/05/18 0655 A1C 5.2 E ADVISOR documented in this encounter Nursing Notes Isis Rivera, JOSE - 11/05/2018 8:40 AM CST Noted swelling left ankle E ADVISOR documented in this encounter Miscellaneous Notes Plan [...] sites soft, bruised, CMS intact. Voiding okay. E ADVISOR Plan of Care - iMsty Villalobos RN - 11/08/2018 7:10 PM CST A/O x4. AVSS on RA. Tele NSR. Hydralazine given x1. Up SBA. Neuros intact. CMS intact. Groin sites, steri strips. Back site, moist drainage. Pulses, palpable, +2. Regular diet. Chapman removed at 1740, Due to void. E ADVISOR Provider Notification - Aura Crooks RN - 11/08/2018 11:37 AM CST MD NOTIFICATION Person Notified: MDA Notified Person's Name: Yeimi Notification Date/Time: 11/08/2017 1135 Notification Interaction: Paged physician Purpose of Notification: Pt remains to have drainage from lumbar drain site. Orders Received: MDA to come assess pt. E ADVISOR Plan of Care - Kristy Castañeda RN [...] access readiness for lumbar drain removal today. E ADVISOR Provider Notification - Kristy Castañeda RN - [...] assess pulling the drain. Kristy Castañeda RN E ADVISOR Plan of Care - Aura Crooks, JOSE - 11/07/2018 6:17 PM CST Neuro: LUCAS- strength /. PERRL. Complains of soreness in groin/hips from moving them too much. Ptup in chair for a hour and tolerated well. Ok'd with Anesthesia MD, [place], to get up in chair forno more [...] some blood in tubing- Anesthesia MD aware. E ADVISOR Plan of Care - Danette Peck RN - 11/07/2018 1:12 PM CST [id number] Continued with numbness bilateral top of thighs. [...] and dtr in room when Drs here. E ADVISOR Provider Notification - Ramiro Lozano RN - 11/07/2018 6:17 AM CST Paged vascular surgery fellow Ashanti regarding new numbness to anterior thighs. CSF has been drained, will begin 500ml bolus unless directed otherwise. E ADVISOR Plan of Care - Ramiro Lozano RN [...] clamped now. Daughter Raquel updated this morning. E ADVISOR Provider Notification - Ramiro Lozano RN - 11/07/2018 5:[address] Wang regarding new leg pain and ICP increase. Opening drain for 15ml CSF over 1 hr per order. E ADVISOR Plan of Care - Danette Peck RN - 11/06/2018 4:34 PM CST [id number] Neuro checks remain intact. Able to move [...] be retested for MRSA per infection control. E ADVISOR Plan of Care - Ramiro Lozano RN [...] this shift. Daughter Raquel updated this morning. E ADVISOR Plan of Care - Danette Peck RN - 11/05/2018 9:43 PM CST [id number] Neuro: intact. Able to move hips slightly [...] by physicians. Care transferred to next nurse. E ADVISOR Provider Notification - Ramiro Lozano RN - 11/05/2018 7:46 PM CST Notified migratory farm hand regarding failure to meet MAP goal of 80, new orders received. E ADVISOR Op Note - Butch Brown MD - [...] descending aortic angiogram SURGEON: Butch Brown MD COMPUTER OPERATIONS SPECIALIST: Kannan Morse MD; Bessy Mas MD - [...] then able to upsized to a 6 [place] sheath over a [place]on wire.The patient was [...] femoral artery and upsized to an 11 [place]an sheath. We then able to insert JULIANE [...] was removed and backfilled with a 16 [place] dry seal on the left.At this point [...] superficial femoral artery access which was 6 [place] sheath with an Angio-Seal closure device performed [...] the drain. Butch Brown MD Vascular Surgery E ADVISOR Brief Op Note - Bessy Mccray MD - 11/05/2018 12:[address] [facility] Brief Operative Note Pre-operative diagnosis: [...] Palp DP bilaterally Complications: None. Implants: None. E ADVISOR Associated attestation - Butch Brown MD - 11/05/2018 1:09 PM NURSE ADVISOR Butch Brown MD IR Note - Gwen Rivas RN - 11/05/2018 10:27 AM CST Interventional Radiology Intra-procedural Nursing Note Patient Name: Speedy Hendricks Today's Date: November 05, 2018 Start Time: 849 End of procedure time: 904 Procedure: lumbar drain placement Report given to: Dr. See, anesthesia Time pt departs: 919 Poultry Pathologist: n/a Other Notes: patient tolerated well. Drain connected to closed drainage system flushed with preservative free NS per Dr. Haro. 1mg Versed and 50mcg Fentanyl IV given for additional sedation (had received 4mg Versed and 100mcg Fentanyl in pre-op prior to arrival). SR on monitor .VSS. Patient taken back to pre-op bay in stable condition. Gwen Rivas, cold rolling machine setter Radiology E ADVISOR documented in this encounter Plan of Treatment Not on filedocumented as of this encounter Procedures Procedure Name Priority Date/Time Associated Comments Diagnosis CBC WITH PLATELETS & Routine 11/09/2018 7:41 AM Descending tho racic Results for this DIFFERENTIAL NURSE ADVISOR aortic aneurysm (H) procedur e are in the results section. COMPREHENSIVE Routine 11/09/2018 7:41 AM Descending thoracic R esults for this METABOLIC PANEL NURSE ADVISOR aortic aneurysm (H) proce dure are in the results section. MAGNESIUM Routine 11/08/2018 3:40 AM Descending thoracic Re sults for this NURSE ADVISOR aortic aneurysm (H) procedur e are in the results section. COMPREHENSIVE Routine 11/08/2018 3:40 AM Descending thoracic R esults for this METABOLIC PANEL NURSE ADVISOR aortic aneurysm (H) proce dure are in the results section. CBC WITH PLATELETS Routine 11/08/2018 3:40 AM Descending thora cic Results for this NURSE ADVISOR aortic aneurysm (H) procedur e are in the results section. CBC WITH PLATELETS STAT 11/07/2018 3:00 PM Descending thora cic Results for this NURSE ADVISOR aortic aneurysm (H) procedur e are in the results section. CBC WITH PLATELETS & Timed 11/07/2018 9:50 AM Descending tho racic Results for this DIFFERENTIAL NURSE ADVISOR aortic aneurysm (H) procedur e are in the results section. MAGNESIUM Routine 11/07/2018 9:50 AM Descending thoracic Re sults for this NURSE ADVISOR aortic aneurysm (H) procedur e are in the results section. BASIC METABOLIC PANEL Timed 11/07/2018 9:50 AM Descending th oracic Results for this NURSE ADVISOR aortic aneurysm (H) procedur e are in the results section. GLUCOSE BY METER Routine 11/07/2018 7:44 AM Descending thoraci c Results for this NURSE ADVISOR aortic aneurysm (H) procedur e are in the results section. GLUCOSE BY METER Routine 11/07/2018 3:49 AM Descending thoraci c Results for this NURSE ADVISOR aortic aneurysm (H) procedur e are in the results section. GLUCOSE BY METER Routine 11/07/2018 12:08 Descending thoracic Results for this AM NURSE ADVISOR aortic aneurysm (H) procedur e are in the results section. GLUCOSE BY METER Routine 11/06/2018 7:53 PM Descending thoraci c Results for this NURSE ADVISOR aortic aneurysm (H) procedur e are in the results section. GLUCOSE BY METER Routine 11/06/2018 11:02 Descending thoracic Results for this AM NURSE ADVISOR aortic aneurysm (H) procedur e are in the results section. GLUCOSE BY METER Routine 11/06/2018 7:38 AM Descending thoraci c Results for this NURSE ADVISOR aortic aneurysm (H) procedur e are in the results section. LACTIC ACID WHOLE Routine 11/06/2018 4:15 AM Descending thorac ic Results for this BLOOD NURSE ADVISOR aortic aneurysm (H) procedur e are in the results section. BASIC METABOLIC PANEL Routine 11/06/2018 4:15 AM Descending th oracic Results for this NURSE ADVISOR aortic aneurysm (H) procedur e are in the results section. CBC WITH PLATELETS Routine 11/06/2018 4:15 AM Descending thora cic Results for this NURSE ADVISOR aortic aneurysm (H) procedur e are in the results section. GLUCOSE BY METER Routine 11/06/2018 1:12 AM Descending thoraci c Results for this NURSE ADVISOR aortic aneurysm (H) procedur e are in the results section. MRSA MSSA PCR, NASAL STAT 11/05/2018 11:41 Descending thora cic Results for this SWAB PM NURSE ADVISOR aortic aneurysm (H) procedur e are in the results section. GLUCOSE BY METER Routine 11/05/2018 8:16 PM Descending thoraci c Results for this NURSE ADVISOR aortic aneurysm (H) procedur e are in the results section. GLUCOSE BY METER Routine 11/05/2018 4:39 PM Descending thoraci c Results for this NURSE ADVISOR aortic aneurysm (H) procedur e are in the results section. INR STAT 11/05/2018 4:35 PM Descending thoracic Re sults for this NURSE ADVISOR aortic aneurysm (H) procedur e are in the results section. LACTIC ACID WHOLE STAT 11/05/2018 4:35 PM Descending thorac ic Results for this BLOOD NURSE ADVISOR aortic aneurysm (H) procedur e are in the results section. BASIC METABOLIC PANEL STAT 11/05/2018 4:35 PM Descending th oracic Results for this NURSE ADVISOR aortic aneurysm (H) procedur e are in the results section. CBC WITH PLATELETS STAT 11/05/2018 4:35 PM Descending thora cic Results for this NURSE ADVISOR aortic aneurysm (H) procedur e are in the results section. IR THORACIC Routine 11/05/2018 12:09 Descending thoracic Resu lts for this ENDOVASCULAR STENT PM NURSE ADVISOR aortic aneurysm (H) pr ocedure are in GRAFT the results section. REPAIR, ANEURYSM, 11/05/2018 9:35 AM DESCENDING THORAC IC THORACIC AORTIC, NURSE ADVISOR AORTIC ANEURYSM ENDOVASCULAR Special Needs BLOOD TRANSFUSION ISSUE (RAR E ANTIBODIES) PT WILL DO A TYPE AND CROSS ON 11/03 JALEEL 10/28 IR LUMBAR DRAIN Routine 11/05/2018 9:10 AM Result s for this PLACEMENT W FLUORO NURSE ADVISOR procedure are in the results section. EKG 12-LEAD, TRACING STAT 11/05/2018 6:58 AM R esults for this ONLY NURSE ADVISOR procedure are i n the results section. POTASSIUM STAT 11/05/2018 6:55 AM Descending thoracic Re sults for this NURSE ADVISOR aortic aneurysm (H) procedur e are in the results section. LIPID PROFILE STAT 11/05/2018 6:55 AM Descending thoracic R esults for this NURSE ADVISOR aortic aneurysm (H) procedur e are in the results section. HEMOGLOBIN A1C STAT 11/05/2018 6:55 AM Descending thoracic Results for this NURSE ADVISOR aortic aneurysm (H) procedur e are in the results section. CREATININE STAT 11/05/2018 6:55 AM Descending thoracic Re sults for this NURSE ADVISOR aortic aneurysm (H) procedur e are in the results section. XR CHEST PORT 1 VIEW STAT 11/05/2018 6:40 AM R esults for this NURSE ADVISOR procedure are i n the results section. EKG CARDIAC - HIM 09/24/2018 12:00 AM SCAN NURSE ADVISOR documented in this encounter Results (ABNORMAL) CBC with platelets differential (11/09/2018 7:[address] [facility]) Component Value Ref Test Analysis Performed At [facility] gist Range Method Time Signature WBC 9.3 4.0 - 11/09/2018 [facility] 11.0 8:06 AM [facility] 10e9/L [facility] RBC Count 3.55 (L) 4.4 - 11/09/2018 [facility] 5.9 8:06 AM [facility] 10e12/L [facility] Hemoglobin 11.3 (L) 13.3 - 11/09/2018 [facility] 17.7 8:06 AM [facility] g/dL [facility] Hematocrit 33.7 (L) 40.0 - 11/09/2018 [facility] 53.0 % 8:06 AM [facility] MCV 95 78 - 100 11/09/2018 [facility] fl 8:06 AM [facility] MCH 31.8 26.5 - 11/09/2018 [facility] 33.0 pg 8:06 AM [facility] MCHC 33.5 31.5 - 11/09/2018 [facility] 36.5 8:06 AM [facility] g/dL [facility] RDW 13.9 10.0 - 11/09/2018 [facility] 15.0 % 8:06 AM [facility] Platelet Count 83 (L) 150 - 11/09/2018 [facility] 450 8:[address] Diff Method Manual 11/09/2018 [facility] Differential 8:31 AM [facility] % Neutrophils 85.0 % 11/09/2018 [facility] 8:31 AM [facility] % Lymphocytes 6.0 % 11/09/2018 [facility] 8:31 AM [facility] % Monocytes 7.0 % 11/09/2018 [facility] 8:31 AM [facility] % Eosinophils 2.0 % 11/09/2018 [facility] 8:31 AM [facility] % Basophils 0.0 % 11/09/2018 [facility] 8:31 AM [facility] Absolute 7.9 1.6 - 11/09/2018 [facility] Neutrophil 8.3 8:[address] Absolute 0.6 (L) 0.8 - 11/09/2018 [facility] Lymphocytes 5.3 8:[address] Absolute 0.7 0.0 - 11/09/2018 [facility] Monocytes 1.3 8:[address] Absolute 0.2 0.0 - 11/09/2018 [facility] Eosinophils 0.7 8:[address] Absolute 0.0 0.0 - 11/09/2018 [facility] Basophils 0.2 8:[address] RBC Morphology Consistent with 11/09/2018 [facility] reported results 8:31 AM [facility] Platelet Automated count 11/09/2018 [facility] Estimate confirmed. 8:31 AM [facility] morphology is normal. Specimen Anatomical Collection Method Collection Time Receive d Time (Source) Location / / Volume Laterality Blood specimen 11/09/2018 7:41 AM 019 7:51 (specimen) NURSE ADVISOR AM NURSE ADVISOR Dimas Chapman MD LAB - BLOOD ORDERABLES Performing Organization Address City/State/ZIP Code Phon e Number M [facility] [address] [place] [address] [phone] [facility] [address] [place] [address], U [phone] (ABNORMAL) Comprehensive metabolic panel (11/09/2018 7:41 AM NURSE ADVISOR) athologist Signature Sodium 144 133 - 144 11/09/2018 [place] mmol/L 8:11 AM [facility] Potassium 4.0 3.4 - 5.3 11/09/2018 [place] mmol/L 8:11 AM [facility] Chloride 113 (H) 94 - 109 11/09/2018 [place] mmol/L 8:11 AM [facility] Carbon Dioxide 22 20 - 32 11/09/2018 [place] mmol/L 8:17 AM [facility] Anion Gap 9 3 - 14 11/09/2018 [place] mmol/L 8:17 AM [facility] Glucose 94 70 - 99 11/09/2018 [place] mg/dL 8:17 AM [facility] Urea Nitrogen 21 7 - 30 11/09/2018 [place] mg/dL 8:17 AM [facility] Creatinine 1.24 0.66 - 11/09/2018 [place] 1.25 mg/dL 8:17 AM [facility] GFR Estimate 56 (L) >60 11/09/2018 [place] mL/min/{1. 8:17 AM [facility] 73_m2} HOSPITAL Comment: Non GFR [...] (L) 8.5 - 10.1 11/09/2018 8:17 AM [facility] mg/dL [facility] Bilirubin Total 1.3 0.2 - 1.3 mg/dL 11/09/2018 8:19 AM [facility] Albumin 2.4 (L) 3.4 - 5.0 g/dL 11/09/2018 8:[address] [facility] Protein Total 6.2 (L) 6.8 - 8.8 g/dL 11/09/2018 8:19 AM [facility] Alkaline Phosphatase 72 40 - 150 U/L 11/09/2018 8:19 AM [facility] ALT 17 0 - 70 U/L 11/09/2018 8:19 AM [facility] AST 15 0 - 45 U/L 11/09/2018 8:19 AM [facility] Specimen Anatomical Collection Method Collection Time Receive d Time (Source) Location / / Volume Laterality Blood specimen 11/09/2018 7:41 AM 019 7:51 (specimen) NURSE ADVISOR AM NURSE ADVISOR Dimas Chapman MD LAB - BLOOD ORDERABLES Performing Organization Address City/State/ZIP Code Phon e Number M [facility] [address] [address] 95 [phone] [facility] [address] [address], [facility] [phone] Magnesium Level scheduled every Thu Wed Thu (11/08/2018 3:40 AM NURSE ADVISOR) P athologist Signature Magnesium 1.7 1.6 - 2.3 11/08/2018 [facility] mg/dL 4:06 AM [facility] Specimen Anatomical Collection Method Collection Time Receive d Time (Source) Location / / Volume Laterality Blood specimen 11/08/2018 3:40 AM 019 3:46 (specimen) NURSE ADVISOR AM NURSE ADVISOR Dimas Chapman MD LAB - BLOOD ORDERABLES Performing Organization Address City/State/ZIP Code Phon e Number M [facility] [address] [address] [phone] [facility] [address], [place] [address], [place] [phone] (ABNORMAL) Comprehensive metabolic panel (11/08/2018 3:[address] [facility]) Analysis Performed At Patho logist Time Signature Sodium 142 133 - 144 11/08/2018 [facility] mmol/L 3:58 AM [facility] Potassium 4.2 3.4 - 5.3 11/08/2018 [facility] mmol/L 3:58 AM [facility] Chloride 111 (H) 94 - 109 11/08/2018 [facility] mmol/L 3:58 AM [facility] Carbon Dioxide 22 20 - 32 11/08/2018 [facility] mmol/L 4:04 AM [facility] Anion Gap 9 3 - 14 11/08/2018 [facility] mmol/L 4:04 AM [facility] Glucose 164 (H) 70 - 99 11/08/2018 [facility] mg/dL 4:04 AM [facility] Urea Nitrogen 20 7 - 30 11/08/2018 [facility] mg/dL 4:04 AM [facility] Creatinine 1.29 (H) 0.66 - 11/08/2018 [facility] 1.25 mg/dL 4:04 AM [facility] GFR Estimate 53 (L) >60 11/08/2018 [facility] mL/min/{1. 4:04 AM [facility] 73_m2} HOSPITAL Comment: Non GFR Calc Starting 10/05/2018, serum creatinine ba sed estimated GFR (eGFR) will be calculated using the Chronic Kidney Dise [facility] Epidemiology Collaboration (CKD-EPI) equation. GFR Estimate If 62 >60 mL/min/{1.73_m2} 11/08/2018 4: 04 AM [facility] Comment: GFR Calc Starting 10/05/2018, serum creatinine ba sed estimated GFR (eGFR) will be calculated using the Chronic Kidney Dise [facility] Epidemiology Collaboration (CKD-EPI) equation. Calcium 8.2 (L) 8.5 - 10.1 11/08/2018 4:04 AM [facility] [place] mg/dL [facility] Bilirubin Total 1.1 0.2 - 1.3 mg/dL 11/08/2018 4:06 AM [facility] Albumin 2.6 (L) 3.4 - 5.0 g/dL 11/08/2018 4:[address] [facility] Protein Total 6.0 (L) 6.8 - 8.8 g/dL 11/08/2018 4:06 AM [facility] Alkaline Phosphatase 62 40 - 150 U/L 11/08/2018 4:06 AM [facility] ALT 18 0 - 70 U/L 11/08/2018 4:06 AM [facility] AST 19 0 - 45 U/L 11/08/2018 4:06 AM [facility] Specimen Anatomical Collection Method Collection Time Receive d Time (Source) Location / / Volume Laterality Blood specimen 11/08/2018 3:40 AM 019 3:46 (specimen) NURSE ADVISOR AM [facility] Gurwinder Godoy MD LAB - BLOOD ORDERABLES Performing Organization Address City/State/ZIP Code Phon e Number M [facility] [address] [address] [facility] [address] [address], [place] [phone] (ABNORMAL) CBC (AM Draw) (11/08/2018 3:40 AM NURSE ADVISOR) Analysis Performed At Patho logist Time Signature WBC 11.2 (H) 4.0 - 11.0 11/08/2018 [facility] 10e9/L 3:50 AM [facility] RBC Count 3.62 (L) 4.4 - 5.9 11/08/2018 [facility] 10e12/L 3:50 AM [facility] Hemoglobin 11.6 (L) 13.3 - 11/08/2018 [facility] 17.7 g/dL 3:50 AM [facility] Hematocrit 34.5 (L) 40.0 - 11/08/2018 [facility] 53.0 % 3:50 AM [facility] MCV 95 78 - 100 11/08/2018 [facility] fl 3:50 AM [facility] MCH 32.0 26.5 - 11/08/2018 [facility] 33.0 pg 3:50 AM [facility] MCHC 33.6 31.5 - 11/08/2018 [facility] 36.5 g/dL 3:50 AM [facility] RDW 13.9 10.0 - 11/08/2018 [facility] 15.0 % 3:50 AM [facility] Platelet Count 82 (L) 150 - 450 11/08/2018 [facility] 10e9/L 3:50 AM [facility] Specimen Anatomical Collection Method Collection Time Receive d Time (Source) Location / / Volume Laterality Blood specimen 11/08/2018 3:40 AM 019 3:46 (specimen) NURSE ADVISOR AM NURSE ADVISOR Gurwinder Godoy MD LAB - BLOOD ORDERABLES Performing Organization Address City/State/ZIP Code Phon e Number M [facility] [address] [address] [phone] [facility] [address] [address], [facility] [phone] (ABNORMAL) CBC with platelets (11/07/2018 3:00 PM NURSE ADVISOR) Analysis Performed At Patho logist Time Signature WBC 11.1 (H) 4.0 - 11.0 11/07/2018 [facility] 10e9/L 3:08 PM [facility] RBC Count 3.74 (L) 4.4 - 5.9 11/07/2018 [facility] 10e12/L 3:08 PM [facility] Hemoglobin 11.9 (L) 13.3 - 11/07/2018 [facility] 17.7 g/dL 3:08 PM [facility] Hematocrit 35.4 (L) 40.0 - 11/07/2018 [facility] 53.0 % 3:08 PM [facility] MCV 95 78 - 100 11/07/2018 [facility] fl 3:08 PM [facility] MCH 31.8 26.5 - 11/07/2018 [facility] 33.0 pg 3:08 PM [facility] MCHC 33.6 31.5 - 11/07/2018 [facility] 36.5 g/dL 3:08 PM [facility] RDW 14.1 10.0 - 11/07/2018 [facility] 15.0 % 3:08 PM [facility] Platelet Count 87 (L) 150 - 450 11/07/2018 [facility] 10e9/L 3:08 PM [facility] Specimen Anatomical Collection Method Collection Time Receive d Time (Source) Location / / Volume Laterality Blood specimen 11/07/2018 3:00 PM 019 3:05 (specimen) NURSE ADVISOR PM NURSE ADVISOR Bart Feliciano MD LAB - BLOOD ORDERABLES Performing Organization Address City/State/ZIP Code Phon e Number M [facility] [address] [place] [address] [facility] [address] [place] [address], [place] [phone] Magnesium (11/07/2018 9:50 AM NURSE ADVISOR) P athologist Signature Magnesium 1.6 1.6 - 2.3 11/07/2018 [facility] mg/dL 11:12 AM [facility] Specimen Anatomical Collection Method Collection Time Receive d Time (Source) Location / / Volume Laterality 11/07/2018 9:50 AM 9 NURSE ADVISOR 10:04 AM NURSE ADVISOR Gurwinder Godoy MD LAB - BLOOD ORDERABLES Performing Organization Address City/State/ZIP Code Phon e Number [facility] [address] [place] [address] [phone] [facility] [address] [place] [address], [place] [phone] (ABNORMAL) CBC with platelets differential (11/07/2018 9:50 AM NURSE ADVISOR) Patholo gist Method Time Signature WBC 10.4 4.0 - 11/07/2018 [facility] 11.0 10:[address] [facility] 10e9/L [facility] RBC Count 3.63 (L) 4.4 - 5.9 11/07/2018 [facility] 10e12/L 10:13 AM [facility] Hemoglobin 11.5 (L) 13.3 - 11/07/2018 [facility] 17.7 g/dL 10:13 AM [facility] Hematocrit 34.3 (L) 40.0 - 11/07/2018 [facility] 53.0 % 10:13 AM [facility] MCV 95 78 - 100 11/07/2018 [facility] fl 10:13 AM [facility] MCH 31.7 26.5 - 11/07/2018 [facility] 33.0 pg 10:13 AM [facility] MCHC 33.5 31.5 - 11/07/2018 [facility] 36.5 g/dL 10:13 AM [facility] RDW 14.0 10.0 - 11/07/2018 [facility] 15.0 % 10:13 AM [facility] Platelet Count 82 (L) 150 - 450 11/07/2018 [facility] 10e9/L 10:37 AM [facility] Diff Method Automated 11/07/2018 [facility] Method 10:37 AM [facility] % Neutrophils 78.8 % 11/07/2018 [facility] 10:37 AM [facility] % Lymphocytes 6.2 % 11/07/2018 [facility] 10:37 AM [facility] % Monocytes 14.7 % 11/07/2018 [facility] 10:37 AM [facility] % Eosinophils 0.2 % 11/07/2018 [facility] 10:37 AM [facility] % Basophils 0.0 % 11/07/2018 [facility] 10:37 AM [facility] % Immature 0.1 % 11/07/2018 [facility] Granulocytes 10:37 AM [facility] Nucleated RBCs 0 0 /100 11/07/2018 [facility] 10:37 AM [facility] Absolute 8.2 1.6 - 8.3 11/07/2018 [facility] Neutrophil 10e9/L 10:37 AM [facility] Absolute 0.6 (L) 0.8 - 5.3 11/07/2018 [facility] Lymphocytes 10e9/L 10:37 AM [facility] Absolute 1.5 (H) 0.0 - 1.3 11/07/2018 [facility] Monocytes 10e9/L 10:37 AM [facility] Absolute 0.0 0.0 - 0.7 11/07/2018 [facility] Eosinophils 10e9/L 10:37 AM [facility] Absolute 0.0 0.0 - 0.2 11/07/2018 [facility] Basophils 10e9/L 10:37 AM [facility] Abs Immature 0.0 0 - 0.4 11/07/2018 [facility] Granulocytes 10e9/L 10:37 AM [facility] Absolute 0.0 11/07/2018 [facility] Nucleated RBC 10:37 AM [facility] Ovalocytes Slight 11/07/2018 [facility] 10:37 AM [facility] Platelet Automated 11/07/2018 [facility] Estimate count 10:[address] [facility] confirmed. [facility] Platelet morphology is normal. Specimen Anatomical Collection Method Collection Time Receive d Time (Source) Location / / Volume Laterality Blood specimen 11/07/2018 9:50 AM 019 (specimen) NURSE ADVISOR 10:[address] [facility] Gurwinder Godoy MD LAB - BLOOD ORDERABLES Performing Organization Address City/State/ZIP Code Phon e Number [facility] [address] [address] [phone] [facility] [address] [place] [address], [place] [phone] (ABNORMAL) Basic metabolic panel (11/07/2018 9:[address] [facility]) Analysis Performed At Patho logist Time Signature Sodium 147 (H) 133 - 144 11/07/2018 [facility] mmol/L 10:16 AM [facility] Potassium 4.1 3.4 - 5.3 11/07/2018 [facility] mmol/L 10:16 AM [facility] Chloride 117 (H) 94 - 109 11/07/2018 [facility] mmol/L 10:16 AM [facility] Carbon Dioxide 20 20 - 32 11/07/2018 [facility] mmol/L 10:23 AM [facility] Anion Gap 10 3 - 14 11/07/2018 [facility] mmol/L 10:23 AM [facility] Glucose 108 (H) 70 - 99 11/07/2018 [facility] mg/dL 10:23 AM [facility] Urea Nitrogen 23 7 - 30 11/07/2018 [facility] mg/dL 10:23 AM [facility] Creatinine 1.47 (H) 0.66 - 11/07/2018 [facility] 1.25 mg/dL 10:23 AM [facility] GFR Estimate 46 (L) >60 11/07/2018 [facility] mL/min/{1. 10:23 AM [facility] 73_m2} HOSPITAL Comment: Non GFR Calc Starting 10/05/2018, serum creatinine ba sed estimated GFR (eGFR) will be calculated using the Chronic Kidney Dise [facility] Epidemiology Collaboration (CKD-EPI) equation. GFR Estimate If 53 (L) >60 mL/min/{1.73_m2} 11/07/2018 10 :23 AM [facility] Black [facility] Comment: GFR Calc Starting 10/05/2018, serum creatinine ba sed estimated GFR (eGFR) will be calculated using the Chronic Kidney Dise [facility] Epidemiology Collaboration (CKD-EPI) equation. Calcium 8.2 (L) 8.5 - 10.1 mg/dL 11/07/2018 10:23 AM [facility] Specimen Anatomical Collection Method Collection Time Receive d Time (Source) Location / / Volume Laterality Blood specimen 11/07/2018 9:50 AM 019 (specimen) NURSE ADVISOR 10:04 AM NURSE ADVISOR Gurwinder Godoy MD LAB - BLOOD ORDERABLES Performing Organization Address City/State/ZIP Code Phon e Number M [facility] [address] [address] [phone] [facility] [address] [address], [facility] [phone] (ABNORMAL) Glucose by meter (11/07/2018 7:44 AM NURSE ADVISOR) P athologist Signature Glucose 112 (H) 70 - 99 11/07/2018 [facility] mg/dL 7:56 AM NURSE ADVISOR TEST, GLUCOSE Specimen Anatomical Collection Method Collection Time Receive d Time (Source) Location / / Volume Laterality 11/07/2018 7:44 AM 9 7:56 NURSE ADVISOR AM NURSE ADVISOR Juan Lewis MD LAB - BEAKER POCT Performing Organization Address City/State/ZIP Code Phon e Number [facility] POINT OF CARE TEST, GLUCOSE POINT OF CARE TEST, GLUCOSE (ABNORMAL) Glucose by meter (11/07/2018 3:49 AM NURSE ADVISOR) P athologist Signature Glucose 105 (H) 70 - 99 11/07/2018 [facility] mg/dL 4:01 AM NURSE ADVISOR TEST, GLUCOSE Specimen Anatomical Collection Method Collection Time Receive d Time (Source) Location / / Volume Laterality 11/07/2018 3:49 AM 9 4:01 NURSE ADVISOR AM NURSE ADVISOR Juan Lewis MD LAB - BEFOUZIA POCT Performing Organization Address City/[facility]/ZIP Code Phon e Number [facility] POINT OF CARE TEST, GLUCOSE POINT OF CARE TEST, GLUCOSE (ABNORMAL) Glucose by meter (11/07/2018 12:08 AM NURSE ADVISOR) P athologist Signature Glucose 119 (H) 70 - 99 11/07/2018 [facility] mg/dL 12:19 AM NURSE ADVISOR TEST, GLUCOSE Specimen Anatomical Collection Method Collection Time Receive d Time (Source) Location / / Volume Laterality 11/07/2018 12:08 11/07/2018 AM NURSE ADVISOR 12:19 AM NURSE ADVISOR Juan YUAN - CAROLYN POCT Performing Organization Address [facility] Code Phon e Number [facility] POINT OF CARE TEST, GLUCOSE POINT OF CARE TEST, GLUCOSE (ABNORMAL) Glucose by meter (11/06/2018 7:53 PM NURSE ADVISOR) P athologist Signature Glucose 116 (H) 70 - 99 11/06/2018 [facility] mg/dL 8:04 PM NURSE ADVISOR TEST, GLUCOSE Specimen Anatomical Collection Method Collection Time Receive d Time (Source) Location / / Volume Laterality 11/06/2018 7:53 PM 9 8:04 NURSE ADVISOR PM NURSE ADVISOR Juan YUAN - CAROLYN POCT Performing Organization Address City/[facility] Code Phon e Number [facility] POINT OF CARE TEST, GLUCOSE POINT OF CARE TEST, GLUCOSE (ABNORMAL) Glucose by meter (11/06/2018 11:02 AM NURSE ADVISOR) P athologist Signature Glucose 109 (H) 70 - 99 11/06/2018 [facility] mg/dL 11:13 AM NURSE ADVISOR TEST, GLUCOSE Specimen Anatomical Collection Method Collection Time Receive d Time (Source) Location / / Volume Laterality 11/06/2018 11:02 11/06/2018 AM NURSE ADVISOR 11:13 AM NURSE ADVISOR Juan YUAN - CAROLYN POCT Performing Organization Address City/[facility]/ZIP Code Phon e Number [facility] POINT OF CARE TEST, GLUCOSE POINT OF CARE TEST, GLUCOSE (ABNORMAL) Glucose by meter (11/06/2018 7:38 AM NURSE ADVISOR) P athologist Signature Glucose 104 (H) 70 - 99 11/06/2018 [facility] mg/dL 7:50 AM NURSE ADVISOR TEST, GLUCOSE Specimen Anatomical Collection Method Collection Time Receive d Time (Source) Location / / Volume Laterality 11/06/2018 7:38 AM 9 7:50 NURSE ADVISOR AM NURSE ADVISOR Juan Lewis MD LAB - BEAKER POCT Performing Organization Address City/State/ZIP Code Phon e Number [facility] POINT OF CARE TEST, GLUCOSE POINT OF CARE TEST, GLUCOSE Lactic acid whole blood (11/06/2018 4:15 AM NURSE ADVISOR) athologist Signature Lactic Acid 1.4 0.7 - 2.0 11/06/2018 [facility] mmol/L 4:40 AM [facility] Specimen Anatomical Collection Method Collection Time Receive d Time (Source) Location / / Volume Laterality Blood specimen 11/06/2018 4:15 AM 019 4:25 (specimen) NURSE ADVISOR AM NURSE ADVISOR Bessy cMcray MD LAB - BLOOD ORDERABLES Performing Organization Address City/State/ZIP Code Phon e Number [facility] [address], [place] [address] [phone] [facility] [address] [place] [address], [facility] [phone] (ABNORMAL) Basic metabolic panel (11/06/2018 4:15 AM NURSE ADVISOR) Analysis Performed At Patho logist Time Signature Sodium 142 133 - 144 11/06/2018 [facility] mmol/L 4:49 AM [facility] Potassium 4.4 3.4 - 5.3 11/06/2018 [facility] mmol/L 4:49 AM [facility] Chloride 113 (H) 94 - 109 11/06/2018 [facility] mmol/L 4:49 AM [facility] Carbon Dioxide 21 20 - 32 11/06/2018 [facility] mmol/L 4:54 AM [facility] Anion Gap 8 3 - 14 11/06/2018 [facility] mmol/L 4:54 AM [facility] Glucose 115 (H) 70 - 99 11/06/2018 [facility] mg/dL 4:54 AM [facility] Urea Nitrogen 27 7 - 30 11/06/2018 [facility] mg/dL 4:54 AM [facility] Creatinine 1.57 (H) 0.66 - 11/06/2018 [facility] 1.25 mg/dL 4:54 AM [facility] GFR Estimate 42 (L) >60 11/06/2018 [facility] mL/min/{1. 4:54 AM [facility] 73_m2} HOSPITAL Comment: Non GFR Calc Starting 10/05/2018, serum creatinine ba sed estimated GFR (eGFR) will be calculated using the Chronic Kidney Dise [facility] Epidemiology Collaboration (CKD-EPI) equation. GFR Estimate If 49 (L) >60 mL/min/{1.73_m2} 11/06/2018 4: 54 AM [facility] Black [facility] Comment: GFR Calc Starting 10/05/2018, serum creatinine ba sed estimated GFR (eGFR) will be calculated using the Chronic Kidney Dise [facility] Epidemiology Collaboration (CKD-EPI) equation. Calcium 7.8 (L) 8.5 - 10.1 mg/dL 11/06/2018 4:54 AM [facility] Specimen Anatomical Collection Method Collection Time Receive d Time (Source) Location / / Volume Laterality Blood specimen 11/06/2018 4:15 AM 019 4:25 (specimen) NURSE ADVISOR AM [facility] Bessy Mccray MD LAB - BLOOD ORDERABLES Performing Organization Address City/State/ZIP Code Phon e Number [facility] [address] [address] [phone] [facility] [address] [address], [place] [phone] (ABNORMAL) CBC with platelets (11/06/2018 4:[address] [facility]) Analysis Performed At Patho logist Time Signature WBC 12.9 (H) 4.0 - 11.0 11/06/2018 [facility] 10e9/L 4:45 AM [facility] RBC Count 3.93 (L) 4.4 - 5.9 11/06/2018 [facility] 10e12/L 4:45 AM [facility] Hemoglobin 12.5 (L) 13.3 - 11/06/2018 [facility] 17.7 g/dL 4:45 AM [facility] Hematocrit 36.8 (L) 40.0 - 11/06/2018 [facility] 53.0 % 4:45 AM [facility] MCV 94 78 - 100 11/06/2018 [facility] fl 4:45 AM [facility] MCH 31.8 26.5 - 11/06/2018 [facility] 33.0 pg 4:45 AM [facility] MCHC 34.0 31.5 - 11/06/2018 [facility] 36.5 g/dL 4:45 AM [facility] RDW 13.2 10.0 - 11/06/2018 [facility] 15.0 % 4:45 AM [facility] Platelet Count 153 150 - 450 11/06/2018 [facility] 10e9/L 4:45 AM [facility] Specimen Anatomical Collection Method Collection Time Receive d Time (Source) Location / / Volume Laterality Blood specimen 11/06/2018 4:15 AM 019 4:25 (specimen) NURSE ADVISOR AM NURSE ADVISOR Bessy Mccray MD LAB - BLOOD ORDERABLES Performing Organization Address City/State/ZIP Code Phon e Number [facility] [address] [address] [phone] [facility] [address] [address], [facility] [phone] (ABNORMAL) Glucose by meter (11/06/2018 1:12 AM NURSE ADVISOR) P athologist Signature Glucose 126 (H) 70 - 99 11/06/2018 [facility] mg/dL 1:24 AM NURSE ADVISOR TEST, GLUCOSE Specimen Anatomical Collection Method Collection Time Receive d Time (Source) Location / / Volume Laterality 11/06/2018 1:12 AM 9 1:24 NURSE ADVISOR AM NURSE ADVISOR Juan Lewis MD LAB - BEAKER POCT Performing Organization Address City/State/ZIP Code Phon e Number [facility] POINT OF CARE TEST, GLUCOSE POINT OF CARE TEST, GLUCOSE Methicillin Resist/Sens S. aureus PCR (11/05/2018 11:41 PM NURSE ADVISOR) [facility] gist Method Time Signature Specimen Nares 11/05/2018 [facility] Description 11:45 PM NURSE ADVISOR [facility] Methicillin Negative NEG^Negat 11/06/2018 [facility]/Sens S. shin 2:36 AM [facility] MEDICAL aureus PCR [facility]ENTER [facility] Comment: MRSA Negative: SA Negative ??MRSA and St aphylococcus aureus target DNA not detected, presumed negative for MRSA and SA colonization or the number of bacteria present may be below the limit of detection for the assay. FDA approved assay performed using [employer] en[employer]Xpert(R) real-time PCR. Specimen (Source) Anatomical Collection Method Collection Time Re ceived Time Location / / Volume Laterality Nasal structure 11/05/2018 11:41 11/06/19 19 (body structure) PM NURSE ADVISOR Bessy Mccray MD LAB - MICRO GENERAL ORDERABL ES Performing Organization Address City/State/ZIP Code Phon e Number [facility] [address] [place] [address] [facility] [address] [place] [address], [place] [phone] (ABNORMAL) Glucose by meter (11/05/2018 8:16 PM NURSE ADVISOR) P athologist Signature Glucose 128 (H) 70 - 99 11/05/2018 [facility] mg/dL 8:28 PM NURSE ADVISOR TEST, GLUCOSE Specimen Anatomical Collection Method Collection Time Receive d Time (Source) Location / / Volume Laterality 11/05/2018 8:16 PM 9 8:28 NURSE ADVISOR PM NURSE ADVISOR Juan YUAN - BEFOUZIA POCT Performing Organization Address City/State/ZIP Code Phon e Number [facility] POINT OF CARE TEST, GLUCOSE POINT OF CARE TEST, GLUCOSE (ABNORMAL) Glucose by meter (11/05/2018 4:39 PM NURSE ADVISOR) P athologist Signature Glucose 124 (H) 70 - 99 11/05/2018 [facility] mg/dL 4:50 PM NURSE ADVISOR TEST, GLUCOSE Specimen Anatomical Collection Method Collection Time Receive d Time (Source) Location / / Volume Laterality 11/05/2018 4:39 PM 9 4:50 NURSE ADVISOR PM NURSE ADVISOR Juan YUAN - BEAKER POCT Performing Organization Address City/State/ZIP Code Phon e Number [facility] POINT OF CARE TEST, GLUCOSE POINT OF CARE TEST, GLUCOSE (ABNORMAL) CBC with platelets (11/05/2018 4:35 PM NURSE ADVISOR) Analysis Performed At Patho logist Time Signature WBC 7.3 4.0 - 11.0 11/05/2018 [facility] 10e9/L 5:22 PM [facility] RBC Count 4.35 (L) 4.4 - 5.9 11/05/2018 [facility] 10e12/L 5:22 PM [facility] Hemoglobin 13.7 13.3 - 11/05/2018 [facility] 17.7 g/dL 5:22 PM [facility] Hematocrit 40.9 40.0 - 11/05/2018 [facility] 53.0 % 5:22 PM [facility] MCV 94 78 - 100 11/05/2018 [facility] fl 5:22 PM [facility] MCH 31.5 26.5 - 11/05/2018 [facility] 33.0 pg 5:22 PM [facility] MCHC 33.5 31.5 - 11/05/2018 [facility] 36.5 g/dL 5:22 PM [facility] RDW 13.1 10.0 - 11/05/2018 [facility] 15.0 % 5:22 PM [facility] Platelet Count 108 (L) 150 - 450 11/05/2018 [facility] 10e9/L 5:22 PM [facility] Specimen Anatomical Collection Method Collection Time Receive d Time (Source) Location / / Volume Laterality Blood specimen 11/05/2018 4:35 PM 019 5:17 (specimen) NURSE ADVISOR PM NURSE ADVISOR Bessy Mccray MD LAB - BLOOD ORDERABLES Performing Organization Address City/[facility]/ZIP Code Phon e Number M [facility] [address] [address] [facility] [address] [address], [place] [phone] INR (11/05/2018 4:35 PM NURSE ADVISOR) P athologist Signature INR 1.03 0.86 - 1.14 11/05/2018 [facility] 5:33 PM [facility] Specimen Anatomical Collection Method Collection Time Receive d Time (Source) Location / / Volume Laterality Blood specimen 11/05/2018 4:35 PM 019 5:17 (specimen) NURSE ADVISOR PM NURSE ADVISOR Bessy Mccray MD LAB - BLOOD ORDERABLES Performing Organization Address City/State/ZIP Code Phon e Number [facility] [address] [place] [address] [phone] [facility] [address] [place] [address], [place] [phone] Lactic acid whole blood (11/05/2018 4:35 PM NURSE ADVISOR) P athologist Signature Lactic Acid 1.0 0.7 - 2.0 11/05/2018 [facility] mmol/L 5:57 PM [facility] Specimen Anatomical Collection Method Collection Time Receive d Time (Source) Location / / Volume Laterality Blood specimen 11/05/2018 4:35 PM 019 5:18 (specimen) NURSE ADVISOR PM NURSE ADVISOR Bessy Mccray MD LAB - BLOOD ORDERABLES Performing Organization Address City/State/ZIP Code Phon e Number [facility] [address] [place] [address] [phone] [facility] [address] [place] [address], [place] [phone] (ABNORMAL) Basic metabolic panel (11/05/2018 4:35 PM NURSE ADVISOR) Analysis Performed At Patho logist Time Signature Sodium 143 133 - 144 11/05/2018 [facility] mmol/L 5:38 PM [facility] Potassium 4.3 3.4 - 5.3 11/05/2018 [facility] mmol/L 5:38 PM [facility] Chloride 113 (H) 94 - 109 11/05/2018 [facility] mmol/L 5:38 PM [facility] Carbon Dioxide 22 20 - 32 11/05/2018 [facility] mmol/L 5:43 PM [facility] Anion Gap 8 3 - 14 11/05/2018 [facility] mmol/L 5:43 PM [facility] Glucose 121 (H) 70 - 99 11/05/2018 [facility] mg/dL 5:43 PM [facility] Urea Nitrogen 24 7 - 30 11/05/2018 [facility] mg/dL 5:43 PM [facility] Creatinine 1.30 (H) 0.66 - 11/05/2018 [facility] 1.25 mg/dL 5:43 PM [facility] GFR Estimate 53 (L) >60 11/05/2018 [facility] mL/min/{1. 5:43 PM [facility] 73_m2} HOSPITAL Comment: Non GFR Calc Starting 10/05/2018, serum creatinine ba sed estimated GFR (eGFR) will be calculated using the Chronic Kidney Dise [facility] Epidemiology Collaboration (CKD-EPI) equation. GFR Estimate If 61 >60 mL/min/{1.73_m2} 11/05/2018 5: 43 PM [facility] Comment: GFR Calc Starting 10/05/2018, serum creatinine ba sed estimated GFR (eGFR) will be calculated using the Chronic Kidney Dise [facility] Epidemiology Collaboration (CKD-EPI) equation. Calcium 8.6 8.5 - 10.1 mg/dL 11/05/2018 5:43 PM [facility] Specimen Anatomical Collection Method Collection Time Receive d Time (Source) Location / / Volume Laterality Blood specimen 11/05/2018 4:35 PM 019 5:17 (specimen) NURSE ADVISOR PM NURSE ADVISOR Bessy Mccray MD LAB - BLOOD ORDERABLES Performing Organization Address City/State/ZIP Code Phon e Number [facility] [address] [address] [facility] [address] [address], [facility] [phone] IR Thoracic Endovascular Stent Graft (11/05/2018 12:09 PM NURSE ADVISOR) Anatomical Region Laterality Modality Chest Radio Fluoroscopy Specimen (Source) Anatomical Location Collection Method / Collectio n Time Received Time / Laterality Volume Impressions 11/06/2018 3:33 PM NURSE ADVISOR IMPRESSION: Successful deployment in 2 components for [...] KANNAN MORSE MD Narrative 11/06/2018 3:33 PM NURSE ADVISOR INTERVENTIONAL RADIOLOGY THORACIC ENDOVASCULAR STENT GRAFT ??11/05/2018 [...] cm. Plan is for endovascular repair with Charitas [employer] Navion stent graft system. TECHNIQUE: Please note this examination was performed with Dr. Butch Brown of vascular surgery service and Dr Noman Martinez, vascular surgery fellow. Patient was brought to OR 51 and placed in a supine position. Skin [...] tion. Over a series of maneuvers, 6 [place] vascular sheath was placed. From left groin [...] cm. Plan is for endovascular repair with Charitas Valiant Navion stent graft system. TECHNIQUE: Please [...] tion. Over a series of maneuvers, 6 [place] vascular sheath was placed. From left groin [...] Drain Placement w Fluoro (11/05/2018 9:10 AM NURSE ADVISOR) Anatomical Region Laterality Modality Spine Radio Fluoroscopy Specimen (Source) Anatomical Location Collection Method / Collectio n Time Received Time / Laterality Volume Narrative 11/05/2018 9:19 AM NURSE ADVISOR [facility] RADIOLOGY INTERVENTIONAL NEURORADIOLOGY PROCEDURAL NOTE FLUOROSCOPICALLY [...] at T9. CPT codes included for physician barbara ce only: [id number] MISSAEL GARCIA MD Procedure Note Missael Garcia MD - 11/05/2018For matting of this note might be different from the original. [facility] RADIOLOGY INTERVENTIONAL NEURORADIOLOGY PROCEDURAL NOTE FLUOROSCOPICALLY [...] codes included for physician referen ce only: [id number] MISSAEL GARCIA MD Butch Brown MD IMG IR ORDERABLES EKG 12-lead, tracing only (11/05/2018 6:58 AM NURSE ADVISOR) [facility] gist Method Time Signature Interpretation ECG Click View RADIOLOGY Image link RESULTS to view waveform and result Specimen (Source) Anatomical Collection Method Collection Time Re ceived Time Location / / Volume Laterality 11/05/2018 6:58 AM NURSE ADVISOR Juan Lewis MD ECG ORDERABLES Performing Organization Address City/State/ZIP Code Phon e Number RADIOLOGY RESULTS Potassium (11/05/2018 6:55 AM NURSE ADVISOR) athologist Signature Potassium 4.3 3.4 - 5.3 11/05/2018 [facility] mmol/L 7:15 AM NURSE ADVISOR [facility] Specimen Anatomical Collection Method Collection Time Receive d Time (Source) Location / / Volume Laterality Blood specimen 11/05/2018 6:55 AM 019 6:56 (specimen) NURSE ADVISOR AM NURSE ADVISOR Zakia Tobin MD LAB - BLOOD ORDERABLES Performing Organization Address City/State/ZIP Code Phon e Number [facility] [address] [address] [facility] [address] [place] [address], [place] [phone] Lipid panel (11/05/2018 6:[address] [facility]) Analysis Performed At Patho logist Time Signature Cholesterol 128 <200 mg/dL 11/05/2018 [facility] 7:20 AM [facility] Triglycerides 125 <150 mg/dL 11/05/2018 [facility] 7:21 AM [facility] HDL Cholesterol 59 >39 mg/dL 11/05/2018 [facility] 7:23 AM [facility] LDL Cholesterol 44 <100 mg/dL 11/05/2018 [facility] Calculated 7:23 AM [facility] Comment: Desirable: <100 mg/dl Non HDL Cholesterol 69 <130 mg/dL 11/05/2018 7:23 AM [facility] Specimen Anatomical Collection Method Collection Time Receive d Time (Source) Location / / Volume Laterality Blood specimen 11/05/2018 6:55 AM 019 6:56 (specimen) NURSE ADVISOR AM NURSE ADVISOR Juan Lewis MD LAB - BLOOD ORDERABLES Performing Organization Address City/State/ZIP Code Phon e Number [facility] [address] [place] [address] [phone] [facility] [address] [place] [address], [place] [phone] Hemoglobin A1c (11/05/2018 6:55 AM NURSE ADVISOR) P athologist Signature Hemoglobin A1C 5.2 0 - 5.6 % 11/05/2018 [facility] 7:30 AM [facility] Comment: Normal <5.7% Prediabetes 5.7-6.4% ??Diab etes 6.5% or higher - adopted from ADA consensus guidelines. Specimen Anatomical Collection Method Collection Time Receive d Time (Source) Location / / Volume Laterality Blood specimen 11/05/2018 6:55 AM 019 6:56 (specimen) NURSE ADVISOR AM NURSE ADVISOR Juan Lewis MD LAB - BLOOD ORDERABLES Performing Organization Address City/State/ZIP Code Phon e Number [facility] [address] [address] [phone] [facility] [address] [address], [place] [phone] (ABNORMAL) Creatinine (11/05/2018 6:55 AM NURSE ADVISOR) athologist Signature Creatinine 1.52 (H) 0.66 - 11/05/2018 [facility] 1.25 mg/dL 7:20 AM [facility] GFR Estimate 44 (L) >60 11/05/2018 [facility] mL/min/{1. 7:20 AM [facility] 73_m2} HOSPITAL Comment: Non GFR Calc Starting 10/05/2018, serum creatinine ba sed estimated GFR (eGFR) will be calculated using the Chronic Kidney Dise [facility] Epidemiology Collaboration (CKD-EPI) equation. GFR Estimate If 51 (L) >60 mL/min/{1.73_m2} 11/05/2018 7: 20 AM [facility] Black [facility] Comment: GFR Calc Starting 10/05/2018, serum creatinine ba sed estimated GFR (eGFR) will be calculated using the Chronic Kidney Dise [facility] Epidemiology Collaboration (CKD-EPI) equation. Specimen Anatomical Collection Method Collection Time Receive d Time (Source) Location / / Volume Laterality Blood specimen 11/05/2018 6:55 AM 019 6:56 (specimen) NURSE ADVISOR AM NURSE ADVISOR Juan Lewis MD LAB - BLOOD ORDERABLES Performing Organization Address City/State/ZIP Code Phon e Number [facility] [address] [address] [facility] [address] [place] [address], [place] [phone] XR Chest Port 1 View (11/05/2018 6:40 AM NURSE ADVISOR) Anatomical Region Laterality Modality Chest Digital Radiography Specimen (Source) Anatomical Location Collection Method / Collectio n Time Received Time / Laterality Volume Impressions 11/05/2018 6:58 AM NURSE ADVISOR IMPRESSION: No acute abnormality. TORI SANTIZO MD Narrative 11/05/2018 6:58 AM NURSE ADVISOR XR CHEST PORTABLE 1 VIEW ?? 11/05/2018 [...] CARDIAC - HIM SCAN (09/24/2018 12:00 AM NURSE ADVISOR) Specimen (Source) Anatomical Location Collection Method / [...] acetaminophen (TYLENOL) tablet Given 11/08/2018 11:04 PM NURSE ADVISOR 975 mg 975 mg 975 mg, Oral, EVERY 6 HOURS PRN, mild pain, fever, Starting on Thu11/05/18 at 1827, Maximum acetaminophen dose from all sources = 75 mg/kg/day not to exceed 4 grams/day. Given 11/08/2018 12:37 PM NURSE ADVISOR 975 mg Given 11/07/2018 11:03 AM NURSE ADVISOR 975 mg alum & mag hydroxide-simethicone (MYLANTA Given 11/08/2018 2:48 AM NURSE ADVISOR 30 mLs ES/MAALOX ES) suspension 30 mL 30 mL, Oral, EVERY 4 HOURS PRN, indigestion, Starting on Thu11/05/18 at 1510, Shake well. apixaban ANTICOAGULANT (ELIQUIS) tablet 2.5 Given 10/20 12:04 PM NURSE ADVISOR 2.5 mg mg 2.5 mg, Oral, 2 TIMES DAILY, First dose on Thu11/09/18 at 1115 atorvastatin (LIPITOR) tablet 40 mg Given 11/08/2018 8:20 PM NURSE ADVISOR 40 mg 40 mg, Oral, EVERY EVENING, First dose on Thu11/05/18 at 2000 Given 11/07/2018 7:49 PM NURSE ADVISOR 40 mg Given 11/06/2018 9:16 PM NURSE ADVISOR 40 mg BUPivacaine (MARCAINE) Given 11/05/2018 12:07 PM 20 mLs Operative Site/Surgical injection 0.5% PF NURSE ADVISOR Site PRN, Starting on Thu11/05/18 at 1207, Intra-procedure calcium carbonate (TUMS) chewable tablet Given 11/07/2018 10 :34 PM NURSE ADVISOR 1,000 mg 1,000 mg 1,000 mg, Oral, EVERY 2 HOURS PRN, heartburn, Starting on Thu11/06/18 at 0408, Do not give if calcium level greater than 10 mg/dL. Given 11/07/2018 12:05 AM NURSE ADVISOR 1,000 mg Given 11/06/2018 4:50 AM NURSE ADVISOR 1,000 mg cyclobenzaprine (FLEXERIL) tablet 5-10 m g Given 11/08/2018 3:58 AM NURSE ADVISOR 10 mg 5-10 mg, Oral, 3 TIMES DAILY PRN, muscle spasms, Starting on Thu11/07/18 at 1153 Given 11/07/2018 2:26 PM NURSE ADVISOR 5 mg diphenhydrAMINE (BENADRYL) injection 12. 5 mg 12.5 mg, Intravenous, EVERY 6 HOURS PRN, itching, Only give if patient unable to take PO., Starting on Thu11/05/18 at 151 0, Caution to be used when administering multiple GRAIN WEIGHER depressing meds within a sh ort time frame. For ordered IV doses 1-50 mg, give IV Push undiluted. Give each 25 mg over a minimum of 1 minute. Extend in non-emergency diphenhydrAMINE (BENADRYL) solution 12.5 mg 12.5 mg, Oral, EVERY 6 HOURS PRN, itchin g, Starting on Thu11/05/18 at 1510, Caution to be used when administering multiple GRAIN WEIGHER depressing meds within a short time frame. heparin 10,000 units in Given 11/05/2018 11:06 AM 200 mLs Operative Site/Surgical 1000 mL 0.9% sodium NURSE ADVISOR Site chloride PRN, Starting on Thu11/05/18 at 1106, Intra-procedure hydrALAZINE (APRESOLINE) injection 10-20 mg Given 11/08/2018 7:03 PM NURSE ADVISOR 10 mg 10-20 mg, Intravenous, EVERY 1 [...] over 1 minute. Given 11/08/2018 11:51 AM NURSE ADVISOR 20 mg Given 11/08/2018 3:36 AM NURSE ADVISOR 20 mg iopamidol (ISOVUE-300) IV Given 11/05/2018 12:42 PM 75 mLs Operative Site/Surgical solution 61% NURSE ADVISOR Site PRN, Starting on Thu11/05/18 at 1242, Intra-procedure labetalol (NORMODYNE/TRANDATE) injection 10-20 Given 0 11/08/2018 3:03 AM NURSE ADVISOR 10 mg mg 10-20 mg, Intravenous, EVERY [...] over 2 minutes. Given 11/08/2018 2:33 AM NURSE ADVISOR 20 mg Given 11/07/2018 10:35 PM NURSE ADVISOR 10 mg magnesium sulfate 4 g in 100 mL sterile water (premade) 4 g, Intravenous, Administer over 120 Minutes, EVERY 4 HOURS PRN, magnesium supplementation, Starting on 11/07/18 at 1152, For serum Mg++ less than 1.6 mg/dL Give 4 g and recheck magnesium level 2 hours aft er dose, and next AM. metoprolol tartrate (LOPRESSOR) tablet 5 0 mg Given 11/09/2018 8:28 AM NURSE ADVISOR 50 mg 50 mg, Oral, 2 TIMES DAILY, First dose on 11/08/18 at 2100, Hold for SBP < 90, HR < 50 Given 11/08/2018 8:20 PM NURSE ADVISOR 50 mg omeprazole (priLOSEC) CR capsule 20 mg Given 11/09/2018 6:33 AM NURSE ADVISOR 20 mg 20 mg, Oral, EVERY MORNING BEFORE BREAKFAST, First dose on Thu11/07/18 at 2345 Given 11/08/2018 8:22 AM NURSE ADVISOR 20 mg Given 11/07/2018 11:48 PM NURSE ADVISOR 20 mg ondansetron (ZOFRAN) injection 4 mg Given 11/07/2018 11:48 PM NURSE ADVISOR 4 mg 4 mg, Intravenous, EVERY 6 [...] half-tab 2.5-5 mg Given 11/08/2018 12:37 PM NURSE ADVISOR 5 mg 2.5-5 mg, Oral, EVERY 4 HOURS PRN, moderate to severe pain, Starting on Thu11/05/18 at 1724 Given 11/08/2018 6:19 AM NURSE ADVISOR 5 mg Given 11/07/2018 7:49 PM NURSE ADVISOR 5 mg sennosides (SENOKOT) tablet 8.6 mg Given 11/08/2018 3:36 AM NURSE ADVISOR 8.6 mg 8.6 mg, Oral, 2 TIMES DAILY PRN, constipation, Starting on Thu11/08/18 at 0250 sodium chloride (PF) 0.9% PF flush 3 mL Given 11/07/2018 4:12 PM NURSE ADVISOR 3 mLs 3 mL, Intracatheter, EVERY 8 HOURS, First dose on Thu11/05/18 at 1515, And Q1H PRN, to lock peripheral IV dormant line. Given 11/07/2018 11:34 AM NURSE ADVISOR 3 mLs Given 11/07/2018 12:06 AM NURSE ADVISOR 10 mLs terazosin (HYTRIN) capsule 5 mg Given 11/08/2018 9:21 PM NURSE ADVISOR 5 mg 5 mg, Oral, AT BEDTIME, First dose on Thu11/05/18 at 2200 documented in this encounter Active and Recently Administered Medications Times are shown in NURSE ADVISOR. Scheduled Medication Order 11/07/2018 11/08/2018 11/09/2018 apixaban ANTICOAGULANT (ELIQUIS) tablet 2.5 mg 1204 (Given - Provider: Kiki Traylor, JOSE) 2.5 mg, Oral, 2 TIMES DAILY, First dose on Thu11/09/18 at 1115 atorvastatin (LIPITOR) tablet 40 mg 1948 (Given - Provider: Kristy Castañeda, JOSE) 2019 (Given - Provider: Maria C Dunbar, JOSE) 40 mg, Oral, EVERY EVENING, First dose on Thu11/05/18 at 2000 HYDROmorphone (PF) (DILAUDID) injection 0.2-0.4 mg 0.2-0.4 mg, Intravenous, ONCE, 1 dose, F 11/05/18 at 1515, For ordered IV doses [...] 1615 metoprolol tartrate (LOPRESSOR) tablet 50 mg 2020 (Given - Provider: Maria C Dunbar [...] NPO) 2120 (Given - Provider: Maria C Dunbar, RN) 5 mg, Oral, AT BEDTIME, First dose on Thu11/05/18 at 2200 Continuous Medication Order 11/07/2018 11/08/2018 11/09/2018 dextrose 5% and 0.45% NaCl infusion (CANCELED) 1426 (N ew Bag - Provider: Daentte Peck RN)1535 (Rate/Dose Verify - Provider: Aura Crooks RN)2330 (New Bag - Provider: Kristy Castañeda RN) 0735 (New Bag - Provider: Aura Crooks , RN)1400 (Stopped - Provider: Aura Croosk RN)1621 (Restarted - Provider: Aura Crooks, JOSE)1844 (New Bag - Provider: Misty Villalobos, JOSE) at 75 mL/hr, Intravenous, CONTINUOUS, St arting [place] 11/07/18 at 1200, Until Thu11/09/18 at 0731 [...] HOURS PRN, mild pa in, fever, Starting Thu11/05/18 at 1827, Maximum acetaminophen dose from [...] 5-10 mg 1426 (Given - Provider: Danette Peck, JOSE) 0358 (Given - Provider: Kristy Castañeda RN) 5-10 mg, Oral, 3 TIMES DAILY PRN, muscle spasms, Starting Sun at 1153 diphenhydrAMINE (BENADRYL) injection 12.5 mg(Linked Group 1) 12.5 mg, Intravenous, EVERY 6 HOURS PRN, itching, Only give if patient unable to take PO., Starting 11/05/18 at 1510, Caution to be used when administering multiple GRAIN WEIGHER depressing meds within a short time frame. For ordered IV doses 1-50 m g, give IV Push undiluted. Give each 25mg over a minimum of 1 minute. Extend in non-emergency diphenhydrAMINE (BENADRYL) solution 12.5 mg(Linked Group 1) 12.5 mg, Oral, EVERY 6 HOURS PRN, itchin g, Starting Thu11/05/18 at 1510, Caution to be used when administering multiple GRAIN WEIGHER depressing meds within a short time frame. hydrALAZINE (APRESOLINE) injection 10-20 mg 0155 (Give n - Provider: Ramiro Lozano RN)0343 (Given - Provider: Ramiro Lozano, JOSE)1053 (Given - Provider: Danette Peck, JOSE) 0336 [...] Ramiro Lozano RN)0758 (Given - Provider: Danette Peck, JOSE)0939 (Given - Provider: Danette Peck, JOSE)1014 (Given - Provider: Danette Peck RN) 0233 (Given - Provider: Kristy Castañeda, JOSE)0303 (Given - Provider: Kristy Castañeda, JOSE) 10-20 mg, Intravenous, EVERY 10 MIN PRN, high blood pressure, Administer over 1- 2 Minutes, Starting Thu11/05/18 at 1621, To achieve blood pressure of systolic < 160 mmHg Note for nurse: if both labet 2044 (Given - Provider: Kristy Castañeda, JOSE)2235 (Given - Provider: Kristy Castañeda, JOSE) alol [...] (ZOFRAN-ODT) ODT tab 4 mg(Linked Group 2) 5735 (See Alternative - Provider: Kristy Castañeda RN) [...] Ramiro Lozano, JOSE)1009 (Given - Provider: Danette Peck RN)1530 (Given [...]
Caution to be used when administering multiple GRAIN WEIGHER depressing meds within a short time frame.
Or diphenhydrAMINE (BENADRYL) injection 12.5 mgJump to med 12.5 mg, Intravenous, EVERY 6 HOURS PRN, itching, Only give if patient unable to take PO., Starting 1/18/19 at 1510
Caution to be used when administering multiple GRAIN WEIGHER depressing meds within a short time frame. [...] documented as of this encounter Care Teams Kelly Machine Operator Relationship Specialty Start Date End Date [facility], [facility] PCP - General 05/12/[address] [place] [address] documented as of this encounter
--- OUTSIDE RECORDS SUMMARY | 2022-07-31 13:57 | XMS_ITS | Encounter Summary ---
:1940 Author Organization [place] Address [address] [facility] [place] [address] Care Team Providers Name Role Phone [facility], [facility] Primary Care Provider [phone] Reason for Referral Therapeutic Imaging/IR - Closed Specialty Diagnoses / Procedures Referred By Contact Refer red To Contact Diagnoses Descending thoracic aortic aneurysm Juan Lewis MD Procedures IR Thoracic Endovascular Stent Graft [address] [place] [address] Referral ID Status Reason Start Date Expiration Date Visits Requ ested Visits Authorized [id number] Closed 10/28/2018 10/28/2019 1 1 T DRYER Reason for Visit Auth/Cert Specialty Diagnoses / Procedures Referred By Contact Refer red To Contact Surgery Diagnoses DESCENDING THORACIC AORTIC ANEURYSM Sh Periop Services Procedures ENDOVASCULAR REPAIR ANEURYSM THORACIC AORTIC [address] [place] [address] Phone: Referral ID Status Reason Start Date Expiration Date Visits Requ ested Visits Authorized [id number] 1 1 Encounter Details Date Type Department Care Team Description 11/05/2018 - Hospital Encounter [facility] Elizabeth Lewis MD [address] [place] [id number] Thoracic aortic aneurysm without rupture (H) (Primary Dx); 11/09/2018 Gallito Sommers MD [address] [place] [id number] Descending thoracic aortic aneurysm (H) Intermediate Care Butch Brown MD [address] [place] [id number] [address] [place] [address] Social History Tobacco Use Types Packs/Day [...] Comments Blood Pressure 158/88 11/09/2018 8:28 AM FRUIT DRYER Pulse 100 11/09/2018 5:00 AM FRUIT DRYER Temperature 36.6 ??C (97.9 ??F) 11/09/2018 7:31 AM FRUIT DRYER Respiratory Rate 22 11/09/2018 8:00 AM FRUIT DRYER Oxygen Saturation 93% 11/09/2018 5:00 AM FRUIT DRYER Inhaled Oxygen Concentration - - Weight 87.3 kg (192 lb 7.4 oz) 11/09/2018 6:39 AM FRUIT DRYER Height 167.6 cm (5' 6) 11/05/2018 6:27 AM FRUIT DRYER Body Mass Index 31.06 11/05/2018 6:27 AM FRUIT DRYER documented in this encounter Discharge Summaries Bessy Mccray MD - 11/09/2018 10:56 AM CST Physician Discharge Summary Patient ID: Speedy Hendricks [id number] 78 year old 1940 Admit date: 11/05/2018 [...] to. Signed: Bessy Mccray 11/09/2018 10:56 AM T DRYER Associated attestation - Juna Lewis MD - 11/11/2018 3:10 PM FRUIT DRYER Physician Attestation I, Juan Lewis, have reviewed [...] Traylor RN - 11/09/2018 11:47 AM CST T DRYER AttachmentsThe following attachments cannot be sent through [...] home with family via car.All questions answered. T DRYER Gurwinder Godoy MD - 11/09/2018 12:02 PM CST [facility] Vascular Medicine Progress Note Date of Service (when I saw the patient): 11/09/2018 Physician Supervisory Attestation: I have reviewed and discussed with the physician sound assistant their history, physical and plan and [...] Discussed with vascular surgery service. Gurwinder Godoy MD,[facility] Vascular Medicine service 11/09/2018 Assessment [...] Rate: 93 Resp: 22 SpO2: 93 % [id number]: None (Room air) Vitals: 11/06/18 0211 11/07/18 [...] = values in this interval not displayed. T DRYER Bessy Mccray MD - 11/09/2018 7:36 AM [...] Bessy Martinez MD Vascular Surgery Fellow Pager T DRYER Associated attestation - Butch Brown MD - 11/16/2018 9:50 AM FRUIT DRYER I was involved with the assessment and plan, and I agree with the findings and plan of care as documented in the fellow's note. MD Wilfredo Castillo Carley, RN - 11/08/2018 6:35 PM CST Pt arrived to station 33 @ 1820 T DRYER Aura Crooks RN - 11/08/2018 5:05 PM CST Pt had drained removed this AM. Draining moderate amount- MDA aware. SR. BP wnl- gave hydralazine x1prn. Chapman to be removed prior to transfer. Lines out and hemostasis achieved. Up to chair- tolerated well, SBA. Frequent neuros- wnl. Will call report to [facility] and will transfer at . T DRYER Dimas Chapman MD - 11/08/2018 12:41 PM CST [facility] Vascular Medicine Progress Note Date [...] -- AST 19 -- -- -- -- T DRYER Bessy Mccray MD - 11/08/2018 8:18 AM [...] Bessy Martinez MD Vascular Surgery Fellow Pager T DRYER Associated attestation - Butch Brown MD - 11/16/2018 3:00 PM FRUIT DRYER I was involved with the assessment and [...] please contact primary service first. Kaleb Rodriguez T DRYER Kristy Castañeda RN - 11/08/2018 6:50 AM CST [address] oTbin at bedside and removed lumbar drain. Pt tolerated well. Neuro checks q 30 min for the next 6 hours. Dry gaze and Tegaderm to site. Kristy Gamez RN aZkia Vyas MD - 11/08/2018 6:47 AM CST [...] drain tubing [place] [id number] down from 100s yesterday. At this time, [...] -- BALDEMAR 8.2* 7.8* 8.6 -- CO2 -- BUN 24 -- CR 1.47* 1.57* 1.30* 1.52* [...] Christina Burrell MD Vascular Surgery Fellow Pgr T DRYER Bishop Tran MD - 11/07/2018 11:55 AM CST Piece Work Checker: S: Mild groin pain this morning, but [...] Dr. Staley of vascular medicine at bedside. Piece Work Checker service will sign off for now. Please re-consult as needed. T DRYER Gurwinder Godoy MD - 11/07/2018 9:09 AM CST [facility] Vascular Medicine Progress Note Date [...] If any change in neuro status contact [facility] surgery first and consider neurocritical [...] good Reviewed last night events, discussed with Piece Work Checker and ICU nursing staff this am. Patients [...] . Avoid nephrotoxic meds. ?? Gurwinder Godoy MD,[facility] Vascular Medicine Interval History Reviewed [...] to keep SBP <160 and MAP >80. T DRYER Gurwinder Godoy MD - 11/06/2018 12:00 PM CST [facility] Vascular Medicine Progress Note Date [...] . Avoid nephrotoxic meds. ?? Gurwinder Godoy MD,FS,[facility] Vascular Medicine Interval History Reviewed [...] 7.8* 8.6 -- GLC 115* 121* -- T DRYER Millie Handley APRN REJECTOR - 11/06/2018 11:55 AM CST Critical Care [...] Total critical care time today 35 min. T DRYER Associated attestation - Bishop Tran MD - 11/12/2018 10:50 AM FRUIT DRYER Physician Attestation I, Bishop Tran, have reviewed [...] sufficient urine. Continue plan as documented in NOUGAT CUTTER MACHINE note. The patient does not seem to [...] for the 11/05/2018 admission is complete. See [facility] admission navigator for prior to admission medications Medication history source reliability:Good Medication history interview source(s):Patient Medication history resources (including written lists, pill bottles, clinic record):Patient mailed in his medication list prior to surgery Primary pharmacy.[facility] Additional medication history information not noted on [employer] med list :None Time spent in this [...] Bedtime 11/04/2018 at 2200 Yes Reported, Patient T DRYER documented in this encounter Procedure Notes Missael [...] management per anethesia/vasc surg Missael Garcia MD [phone] T DRYER documented in this encounter Consult Notes Kaleb Rodriguez NP - 11/05/2018 5:14 PM CSTAssociated Order(s): LOSS CONTROL MANAGER IP CONSULT [facility] Consult Critical Care Service Date [...] Code Status Full Code Primary Care Physician [facility] Chief Complaint S/p TEVAR History [...] IR Lumbar Drain Placement w Fluoro Narrative [facility] RADIOLOGY INTERVENTIONAL NEURORADIOLOGY PROCEDURAL NOTE FLUOROSCOPICALLY [...] CPT codes included for physician reference only: 55462/52119 MISSAEL GARCIA MD Glucose by meter Result Value Ref Range Glucose 124 (H) 70 - 99 mg/dL T DRYER Associated attestation - Olive Bello MD - 11/05/2018 10:58 PM FRUIT DRYER ICU STAFF: I have discussed Mr. Hendricks's [...] management per vascular surgery. Olive Bello MD #[id number] 11/05/18 Bill as Advanced Practice Provider only. Gurwinder Godoy MD - 11/05/2018 1:40 PM CST [facility] Vascular Medicine Consultation Date of Admission: 11/05/2018 Date of Consult (When I saw the patient): 11/05/18 Physician Supervisory Attestation: I have reviewed and discussed with the physician sound assistant their history, physical and plan and [...] consult Copy to Dr. Debbie Godoy MD ,[facility] Vascular Medicine 11/05/2018 Assessment & [...] 78 year old male Primary Care Physician [facility] History of Present Illness Speedy [...] Labs Lab Test 11/05/18 0655 A1C 5.2 T DRYER documented in this encounter Nursing Notes Isis Rivera, JOSE - 11/05/2018 8:40 AM CST Noted swelling left ankle T DRYER documented in this encounter Miscellaneous Notes Plan [...] sites soft, bruised, CMS intact. Voiding okay. T DRYER Plan of Care - Misty Villalobos RN - 11/08/2018 7:10 PM CST A/O x4. AVSS on RA. Tele NSR. Hydralazine given x1. Up SBA. Neuros intact. CMS intact. Groin sites, steri strips. Back site, moist drainage. Pulses, palpable, +2. Regular diet. Chapman removed at 1740, Due to void. T DRYER Provider Notification - Aura Crooks RN - 11/08/2018 11:37 AM CST MD NOTIFICATION Person Notified: MDA Notified Person's Name: Yeimi Notification Date/Time: 11/08/2017 1135 Notification Interaction: Paged physician Purpose of Notification: Pt remains to have drainage from lumbar drain site. Orders Received: MDA to come assess pt. T DRYER Plan of Care - Kristy Castañeda RN [...] access readiness for lumbar drain removal today. T DRYER Provider Notification - Kristy Castañeda RN - [...] assess pulling the drain. Kristy Castañeda RN T DRYER Plan of Care - Aura Crooks RN - 11/07/2018 6:17 PM CST Neuro: LUCAS- strength 5/5. PERRL. Complains of soreness in groin/hips from moving them too much. Ptup in chair for a hour and tolerated well. Ok'd with Anesthesia MD, [place], to get up in chair forno more [...] some blood in tubing- Anesthesia MD aware. T DRYER Plan of Care - Danette Peck RN - 11/07/2018 1:12 PM CST [id number] Continued with numbness bilateral top of thighs. [...] and dtr in room when Drs here. T DRYER Provider Notification - Ramiro Lozano RN - 11/07/2018 6:17 AM CST Paged vascular surgery fellow Ashanti regarding new numbness to anterior thighs. CSF has been drained, will begin 500ml bolus unless directed otherwise. T DRYER Plan of Care - Ramiro Lozano RN [...] clamped now. Daughter Raquel updated this morning. T DRYER Provider Notification - Ramiro Lozano RN - 11/07/2018 5:[address] Wang regarding new leg pain and ICP increase. Opening drain for 15ml CSF over 1 hr per order. T DRYER Plan of Care - Danette Peck RN - 11/06/2018 4:34 PM CST [id number] Neuro checks remain intact. Able to move [...] be retested for MRSA per infection control. T DRYER Plan of Care - Ramiro Lozano RN [...] this shift. Daughter Raquel updated this morning. T DRYER Plan of Care - Danette Peck RN - 11/05/2018 9:43 PM CST [id number] Neuro: intact. Able to move hips slightly due to keeping legs straight. No numbness or tingling. Lumbar drain draining clear liquid. Open until here and clamped per order. Pressure 10-15 [...] by physicians. Care transferred to next nurse. T DRYER Provider Notification - Ramiro Lozano RN - 11/05/2018 7:46 PM CST Notified research dairy farm supervisor regarding failure to meet MAP goal of 80, new orders received. T DRYER Op Note - Butch Brown MD - [...] descending aortic angiogram SURGEON: Butch Brown MD HEAD CAGER: Kannan Morse MD; Bessy Mas MD - [...] then able to upsized to a 6 Ethiopian sheath over a Bentson wire.The patient was [...] femoral artery and upsized to an 11 Ethiopian sheath. We then able to insert JULIANE [...] was removed and backfilled with a 16 Ethiopian dry seal on the left.At this point [...] superficial femoral artery access which was 6 Ethiopian sheath with an Angio-Seal closure device performed [...] the drain. Butch Brown MD Vascular Surgery T DRYER Brief Op Note - Bessy Mccray MD - 11/05/2018 12:29 PM CST [facility] Brief Operative Note Pre-operative diagnosis: [...] Palp DP bilaterally Complications: None. Implants: None. T DRYER Associated attestation - Butch Brown MD - 11/05/2018 1:09 PM FRUIT DRYER Butch Brown MD IR Note - Gwen Rivas RN - 11/05/2018 10:27 AM CST Interventional Radiology Intra-procedural Nursing Note Patient Name: Speedy Hendricks Today's Date: November 05, 2018 Start Time: 0850 End of procedure time: 904 Procedure: lumbar drain placement Report given to: Dr. See, anesthesia Time pt departs: 919 Diet Supervisor: n/a Other Notes: patient tolerated well. Drain connected to closed drainage system flushed with preservative free NS per Dr. Haro. 1mg Versed and 50mcg Fentanyl IV given for additional sedation (had received 4mg Versed and 100mcg Fentanyl in pre-op prior to arrival). SR on monitor .VSS. Patient taken back to pre-op bay in stable condition. Gwen Rivas RNhydrogenation operator Radiology T DRYER documented in this encounter Plan of Treatment Not on filedocumented as of this encounter Procedures Procedure Name Priority Date/Time Associated Comments Diagnosis CBC WITH PLATELETS & Routine 11/09/2018 7:41 AM Descending tho racic Results for this DIFFERENTIAL FRUIT DRYER aortic aneurysm (H) procedur e are in the results section. COMPREHENSIVE Routine 11/09/2018 7:41 AM Descending thoracic R esults for this METABOLIC PANEL FRUIT DRYER aortic aneurysm (H) proce dure are in the results section. MAGNESIUM Routine 11/08/2018 3:40 AM Descending thoracic Re sults for this FRUIT DRYER aortic aneurysm (H) procedur e are in the results section. COMPREHENSIVE Routine 11/08/2018 3:40 AM Descending thoracic R esults for this METABOLIC PANEL FRUIT DRYER aortic aneurysm (H) proce dure are in the results section. CBC WITH PLATELETS Routine 11/08/2018 3:40 AM Descending thora cic Results for this FRUIT DRYER aortic aneurysm (H) procedur e are in the results section. CBC WITH PLATELETS STAT 11/07/2018 3:00 PM Descending thora cic Results for this FRUIT DRYER aortic aneurysm (H) procedur e are in the results section. CBC WITH PLATELETS & Timed 11/07/2018 9:50 AM Descending tho racic Results for this DIFFERENTIAL FRUIT DRYER aortic aneurysm (H) procedur e are in the results section. MAGNESIUM Routine 11/07/2018 9:50 AM Descending thoracic Re sults for this FRUIT DRYER aortic aneurysm (H) procedur e are in the results section. BASIC METABOLIC PANEL Timed 11/07/2018 9:50 AM Descending th oracic Results for this FRUIT DRYER aortic aneurysm (H) procedur e are in the results section. GLUCOSE BY METER Routine 11/07/2018 7:44 AM Descending thoraci c Results for this FRUIT DRYER aortic aneurysm (H) procedur e are in the results section. GLUCOSE BY METER Routine 11/07/2018 3:49 AM Descending thoraci c Results for this FRUIT DRYER aortic aneurysm (H) procedur e are in the results section. GLUCOSE BY METER Routine 11/07/2018 12:08 Descending thoracic Results for this AM FRUIT DRYER aortic aneurysm (H) procedur e are in the results section. GLUCOSE BY METER Routine 11/06/2018 7:53 PM Descending thoraci c Results for this FRUIT DRYER aortic aneurysm (H) procedur e are in the results section. GLUCOSE BY METER Routine 11/06/2018 11:02 Descending thoracic Results for this AM FRUIT DRYER aortic aneurysm (H) procedur e are in the results section. GLUCOSE BY METER Routine 11/06/2018 7:38 AM Descending thoraci c Results for this FRUIT DRYER aortic aneurysm (H) procedur e are in the results section. LACTIC ACID WHOLE Routine 11/06/2018 4:15 AM Descending thorac ic Results for this BLOOD FRUIT DRYER aortic aneurysm (H) procedur e are in the results section. BASIC METABOLIC PANEL Routine 11/06/2018 4:15 AM Descending th oracic Results for this FRUIT DRYER aortic aneurysm (H) procedur e are in the results section. CBC WITH PLATELETS Routine 11/06/2018 4:15 AM Descending thora cic Results for this FRUIT DRYER aortic aneurysm (H) procedur e are in the results section. GLUCOSE BY METER Routine 11/06/2018 1:12 AM Descending thoraci c Results for this FRUIT DRYER aortic aneurysm (H) procedur e are in the results section. MRSA MSSA PCR, NASAL STAT 11/05/2018 11:41 Descending thora cic Results for this SWAB PM FRUIT DRYER aortic aneurysm (H) procedur e are in the results section. GLUCOSE BY METER Routine 11/05/2018 8:16 PM Descending thoraci c Results for this FRUIT DRYER aortic aneurysm (H) procedur e are in the results section. GLUCOSE BY METER Routine 11/05/2018 4:39 PM Descending thoraci c Results for this FRUIT DRYER aortic aneurysm (H) procedur e are in the results section. INR STAT 11/05/2018 4:35 PM Descending thoracic Re sults for this FRUIT DRYER aortic aneurysm (H) procedur e are in the results section. LACTIC ACID WHOLE STAT 11/05/2018 4:35 PM Descending thorac ic Results for this BLOOD FRUIT DRYER aortic aneurysm (H) procedur e are in the results section. BASIC METABOLIC PANEL STAT 11/05/2018 4:35 PM Descending th oracic Results for this FRUIT DRYER aortic aneurysm (H) procedur e are in the results section. CBC WITH PLATELETS STAT 11/05/2018 4:35 PM Descending thora cic Results for this FRUIT DRYER aortic aneurysm (H) procedur e are in the results section. IR THORACIC Routine 11/05/2018 12:09 Descending thoracic Resu lts for this ENDOVASCULAR STENT PM FRUIT DRYER aortic aneurysm (H) pr ocedure are in GRAFT the results section. REPAIR, ANEURYSM, 11/05/2018 9:35 AM DESCENDING THORAC IC THORACIC AORTIC, FRUIT DRYER AORTIC ANEURYSM ENDOVASCULAR Special Needs BLOOD TRANSFUSION ISSUE (RAR E ANTIBODIES) PT WILL DO A TYPE AND CROSS ON 11/03 JALEEL 10/28 IR LUMBAR DRAIN Routine 11/05/2018 9:10 AM Result s for this PLACEMENT W FLUORO FRUIT DRYER procedure are in the results section. EKG 12-LEAD, TRACING STAT 11/05/2018 6:58 AM R esults for this ONLY FRUIT DRYER procedure are i n the results section. POTASSIUM STAT 11/05/2018 6:55 AM Descending thoracic Re sults for this FRUIT DRYER aortic aneurysm (H) procedur e are in the results section. LIPID PROFILE STAT 11/05/2018 6:55 AM Descending thoracic R esults for this FRUIT DRYER aortic aneurysm (H) procedur e are in the results section. HEMOGLOBIN A1C STAT 11/05/2018 6:55 AM Descending thoracic Results for this FRUIT DRYER aortic aneurysm (H) procedur e are in the results section. CREATININE STAT 11/05/2018 6:55 AM Descending thoracic Re sults for this FRUIT DRYER aortic aneurysm (H) procedur e are in the results section. XR CHEST PORT 1 VIEW STAT 11/05/2018 6:40 AM R esults for this FRUIT DRYER procedure are i n the results section. EKG CARDIAC - HIM 09/24/2018 12:00 AM SCAN FRUIT DRYER documented in this encounter Results (ABNORMAL) CBC with platelets differential (11/09/2018 7:41 AM FRUIT DRYER) Component Value Ref Test Analysis Performed At [facility] gist Range Method Time Signature WBC 9.3 4.0 - 11/09/2018 [facility] 11.0 8:06 AM FRUIT DRYER [address] RBC Count 3.55 (L) 4.4 - 11/09/2018 [facility] 5.9 8:06 AM [place] [id number] Hemoglobin 11.3 (L) 13.3 - 11/09/2018 [facility] 17.7 8:06 AM [facility] Hematocrit 33.7 (L) 40.0 - 11/09/2018 [facility] 53.0 % 8:06 AM [facility] MCV 95 78 - 100 11/09/2018 [facility] fl 8:06 AM [facility] MCH 31.8 26.5 - 11/09/2018 [facility] 33.0 pg 8:06 AM [facility] MCHC 33.5 31.5 - 11/09/2018 [facility] 36.5 8:06 AM [facility] RDW 13.9 10.0 - 11/09/2018 [facility] 15.0 % 8:06 AM [facility] Platelet Count 83 (L) 150 - 11/09/2018 [facility] 450 8:[address] Diff Method Manual 11/09/2018 [facility] Differential 8:31 AM [facility] % Neutrophils 85.0 % 11/09/2018 [facility] 8:31 AM [facility] % Lymphocytes 6.0 % 11/09/2018 [facility] 8:31 AM [facility] % Monocytes 7.0 % 11/09/2018 [facility] 8:31 AM [facility] % Eosinophils 2.0 % 11/09/2018 [facility] 8:31 AM [facility] % Basophils 0.0 % 11/09/2018 [facility] 8:31 AM [facility] Absolute 7.9 1.6 - 11/09/2018 [facility] Neutrophil 8.3 8:[address] Absolute 0.6 (L) 0.8 - 11/09/2018 [facility] Lymphocytes 5.3 8:[address] Absolute 0.7 0.0 - 11/09/2018 [facility] Monocytes 1.3 8:[address] Absolute 0.2 0.0 - 11/09/2018 [facility] Eosinophils 0.7 8:[address] Absolute 0.0 0.0 - 11/09/[address] [facility] Basophils 0.2 8:[address] RBC Morphology Consistent with 11/09/[address] [facility] reported results 8:31 AM [facility] Platelet Automated count 11/09/[address] [facility] Estimate confirmed. 8:31 AM [facility] morphology is normal. Specimen Anatomical Collection Method Collection Time Receive d Time (Source) Location / / Volume Laterality Blood specimen 11/09/2018 7:41 AM 019 7:51 (specimen) FRUIT DRYER AM FRUIT DRYER Dimas Chapman MD LAB - BLOOD ORDERABLES Performing Organization Address City/State/ZIP Code Phon e Number [facility] [address] [place] [address] [address] [facility] [address] [place] [address], [place] [phone] (ABNORMAL) Comprehensive metabolic panel (11/09/2018 7:41 AM FRUIT DRYER) P athologist Signature Sodium 144 133 - 144 11/09/2018 [place] mmol/L 8:11 AM [facility] Potassium 4.0 3.4 - 5.3 11/09/2018 [place] mmol/L 8:11 AM [facility] Chloride 113 (H) 94 - 109 11/09/2018 [place] mmol/L 8:11 AM [facility] Carbon Dioxide 22 20 - 32 11/09/2018 [place] mmol/L 8:17 AM [facility] Anion Gap 9 3 - 14 11/09/2018 [place] mmol/L 8:17 AM [facility] Glucose 94 70 - 99 11/09/2018 [place] mg/dL 8:17 AM [facility] Urea Nitrogen 21 7 - 30 11/09/2018 [place] mg/dL 8:17 AM [facility] Creatinine 1.24 0.66 - 11/09/2018 [place] 1.25 mg/dL 8:17 AM [facility] GFR Estimate 56 (L) >60 11/09/2018 [place] mL/min/{1. 8:17 AM [facility] 73_m2} HOSPITAL Comment: Non GFR Calc Starting 10/05/2018, serum creatinine ba sed estimated GFR (eGFR) will be calculated using the Chronic Kidney Dise [facility] Epidemiology Collaboration (CKD-EPI) equation. GFR Estimate If 65 >60 mL/min/{1.73_m2} 11/09/2018 8: 17 AM [facility] Comment: GFR Calc Starting 10/05/2018, serum creatinine ba sed estimated GFR (eGFR) will be calculated using the Chronic Kidney Dise [facility] Epidemiology Collaboration (CKD-EPI) equation. Calcium 8.4 (L) 8.5 - 10.1 11/09/2018 8:17 AM [facility] mg/dL [facility] Bilirubin Total 1.3 0.2 - 1.3 mg/dL 11/09/2018 8:[address] [facility] Albumin 2.4 (L) 3.4 - 5.0 g/dL 11/09/2018 8:19 AM [facility] Protein Total 6.2 (L) 6.8 - 8.8 g/dL 11/09/2018 8:19 AM [facility] Alkaline Phosphatase 72 40 - 150 U/L 11/09/2018 8:[address] [facility] ALT 17 0 - 70 U/L 11/09/2018 8:19 AM [facility] AST 15 0 - 45 U/L 11/09/2018 8:19 AM [facility] Specimen Anatomical Collection Method Collection Time Receive d Time (Source) Location / / Volume Laterality Blood specimen 11/09/2018 7:41 AM 019 7:51 (specimen) FRUIT DRYER AM FRUIT DRYER Dimas Chapman MD LAB - BLOOD ORDERABLES Performing Organization Address City/State/ZIP Code Phon e Number [facility] [address] [address] [facility] [address] [place] [address], [place] [phone] Magnesium Level scheduled every Thu Wed Thu (11/08/2018 3:40 AM FRUIT DRYER) athologist Signature Magnesium 1.7 1.6 - 2.3 11/08/2018 [facility] mg/dL 4:06 AM [facility] Specimen Anatomical Collection Method Collection Time Receive d Time (Source) Location / / Volume Laterality Blood specimen 11/08/2018 3:40 AM 019 3:46 (specimen) FRUIT DRYER AM FRUIT DRYER Dimas Chapman MD LAB - BLOOD ORDERABLES Performing Organization Address City/State/ZIP Code Phon e Number [facility] [address] [place] [address] [facility] [address] [place] [address], U [place] [phone] (ABNORMAL) Comprehensive metabolic panel (11/08/2018 3:40 AM FRUIT [facility]YER) Analysis Performed At Patho logist Time Signature Sodium 142 133 - 144 11/08/2018 [place] mmol/L 3:58 AM [facility] Potassium 4.2 3.4 - 5.3 11/08/2018 [facility] mmol/L 3:58 AM [facility] Chloride 111 (H) 94 - 109 11/08/2018 [facility] mmol/L 3:58 AM [facility] Carbon Dioxide 22 20 - 32 11/08/2018 [place] mmol/L 4:04 AM [facility] Anion Gap 9 3 - 14 11/08/2018 [place] mmol/L 4:04 AM [facility] Glucose 164 (H) 70 - 99 11/08/2018 [place] mg/dL 4:04 AM [facility] Urea Nitrogen 20 7 - 30 11/08/2018 [place] mg/dL 4:04 AM [facility] Creatinine 1.29 (H) 0.66 - 11/08/2018 [facility] 1.25 mg/dL 4:04 AM [facility] GFR Estimate 53 (L) >60 11/08/2018 [place] mL/min/{1. 4:04 AM [facility] 73_m2} [facility] Comment: Non GFR Calc Starting 10/05/2018, serum creatinine ba sed estimated GFR (eGFR) will be calculated using the Chronic Kidney Dise ase Epidemiology Collaboration (CKD-EPI) equation. GFR Estimate If 62 >60 mL/min/{1.73_m2} 11/08/2018 4: 04 AM [facility] Comment: GFR Calc Starting 10/05/2018, serum creatinine ba sed estimated GFR (eGFR) will be calculated using the Chronic Kidney Dise ase Epidemiology Collaboration (CKD-EPI) equation. Calcium 8.2 (L) 8.5 - 10.1 11/08/2018 4:04 AM [facility] mg/dL [facility] Bilirubin Total 1.1 0.2 - 1.3 mg/dL 11/08/2018 4:[address] [facility] Albumin 2.6 (L) 3.4 - 5.0 g/dL 11/08/2018 4:06 AM [facility] Protein Total 6.0 (L) 6.8 - 8.8 g/dL 11/08/2018 4:06 AM [facility] Alkaline Phosphatase 62 40 - 150 U/L 11/08/2018 4:[address] [facility] ALT 18 0 - 70 U/L 11/08/2018 4:06 AM [facility] AST 19 0 - 45 U/L 11/08/2018 4:06 AM [facility] Specimen Anatomical Collection Method Collection Time Receive d Time (Source) Location / / Volume Laterality Blood specimen 11/08/2018 3:40 AM 019 3:46 (specimen) FRUIT [facility]YER AM [facility] Gurwnider Godoy MD LAB - BLOOD ORDERABLES Performing Organization Address City/State/ZIP Code Phon e Number [facility] [address] [address] [facility] [address] [address], U [phone] (ABNORMAL) CBC (AM Draw) (11/08/2018 3:40 AM FR[facility]) Analysis Performed At Patho logist Time Signature WBC 11.2 (H) 4.0 - 11.0 11/08/2018 [place] 10e9/L 3:50 AM [facility] RBC Count 3.62 (L) 4.4 - 5.9 11/08/2018 [place] 10e12/L 3:50 AM [facility] Hemoglobin 11.6 (L) 13.3 - 11/08/2018 [facility] 17.7 g/dL 3:50 AM [facility] Hematocrit 34.5 (L) 40.0 - 11/08/2018 [facility] 53.0 % 3:50 AM [facility] MCV 95 78 - 100 11/08/2018 [facility] fl 3:50 AM [facility] MCH 32.0 26.5 - 11/08/2018 [facility] 33.0 pg 3:50 AM [facility] MCHC 33.6 31.5 - 11/08/2018 [facility] 36.5 g/dL 3:50 AM [facility] RDW 13.9 10.0 - 11/08/2018 [facility] 15.0 % 3:50 AM [facility] Platelet Count 82 (L) 150 - 450 11/08/2018 [facility] 10e9/L 3:50 AM [facility] Specimen Anatomical Collection Method Collection Time Receive d Time (Source) Location / / Volume Laterality Blood specimen 11/08/2018 3:40 AM 019 3:46 (specimen) FRUIT DRYER AM FR[facility]ER Gurwinder Godoy MD LAB - BLOOD ORDERABLES Performing Organization Address City/State/ZIP Code Phon e Number [facility] [address] [address] [phone] [facility] [address] [address], U [phone] (ABNORMAL) CBC with platelets (11/07/2018 3:00 PM [facility]) Analysis Performed At Patho logist Time Signature WBC 11.1 (H) 4.0 - 11.0 11/07/2018 [facility] 10e9/L 3:08 PM [facility] RBC Count 3.74 (L) 4.4 - 5.9 11/07/2018 [facility] 10e12/L 3:08 PM [facility] Hemoglobin 11.9 (L) 13.3 - 11/07/2018 [facility] 17.7 g/dL 3:08 PM [facility] Hematocrit 35.4 (L) 40.0 - 11/07/2018 [facility] 53.0 % 3:08 PM [facility] MCV 95 78 - 100 11/07/2018 [place] fl 3:08 PM [facility] MCH 31.8 26.5 - 11/07/2018 [facility] 33.0 pg 3:08 PM [facility] MCHC 33.6 31.5 - 11/07/2018 [facility] 36.5 g/dL 3:08 PM [facility] RDW 14.1 10.0 - 11/07/[address] [facility] 15.0 % 3:08 PM [facility] Platelet Count 87 (L) 150 - 450 11/07/2018 [place] 10e9/L 3:08 PM [facility] Specimen Anatomical Collection Method Collection Time Receive d Time (Source) Location / / Volume Laterality Blood specimen 11/07/2018 3:00 PM 019 3:05 (specimen) FRUIT DRYER PM FR[facility]ER Bart Feliciano MD LAB - BLOOD ORDERABLES Performing Organization Address City/State/ZIP Code Phon e Number [facility] [address] [place] [address] [facility] [address] [place] [address], [place] [phone] Magnesium (11/07/2018 9:50 AM FR[facility]ER) P athologist Signature Magnesium 1.6 1.6 - 2.3 11/07/2018 [place] mg/dL 11:12 AM [facility] Specimen Anatomical Collection Method Collection Time Receive d Time (Source) Location / / Volume Laterality 11/07/2018 9:50 AM 9 [facility] 10:04 AM [facility] Gurwinder Godoy MD LAB - BLOOD ORDERABLES Performing Organization Address City/State/ZIP Code Phon e Number [facility] [address] [place] [address] [facility] [address] [place] [address], [place] [phone] (ABNORMAL) CBC with platelets differential (11/07/2018 9:50 AM FR[facility]ER) Patholo gist Method Time Signature WBC 10.4 4.0 - 11/07/2018 [facility] 11.0 10:13 AM [facility] 10e9/L [facility] RBC Count 3.63 (L) 4.4 - [...] Absolute 1.5 (H) 0.0 - 1.3 11/07/2018 [place] Monocytes 10e9/L 10:37 AM [facility] Absolute 0.0 0.0 - 0.7 11/07/2018 [place] Eosinophils 10e9/L 10:37 AM [facility] Absolute 0.0 0.0 - 0.2 11/07/2018 [place] Basophils 10e9/L 10:37 AM [facility] Abs Immature 0.0 0 - 0.4 11/07/2018 [place] Granulocytes 10e9/L 10:37 AM [facility] Absolute 0.0 11/07/2018 [place] Nucleated RBC 10:37 AM [facility] Ovalocytes Slight 11/07/[address] [facility] 10:37 AM [facility] Platelet Automated 11/07/2018 [place] Estimate count 10:37 AM [facility] confirmed. [facility] Platelet morphology is normal. Specimen Anatomical Collection Method Collection Time Receive d Time (Source) Location / / Volume Laterality Blood specimen 11/07/2018 9:50 AM 019 (specimen) FR[facility]YER 10:04 AM [facility] Gurwinder Godoy MD LAB - BLOOD ORDERABLES Performing Organization Address City/State/ZIP Code Phon e Number [facility] [address] [address] [phone] [facility] [address] [address], [place] [phone] (ABNORMAL) Basic metabolic panel (11/07/2018 9:50 AM [facility]) Analysis Performed At Patho logist Time Signature Sodium 147 (H) 133 - 144 11/07/2018 [place] mmol/L 10:16 AM [facility] Potassium 4.1 3.4 - 5.3 11/07/2018 [place] mmol/L 10:16 AM [facility] Chloride 117 (H) 94 - 109 11/07/2018 [place] mmol/L 10:16 AM [facility] Carbon Dioxide 20 20 - 32 11/07/2018 [place] mmol/L 10:23 AM [facility] Anion Gap 10 3 - 14 11/07/2018 [place] mmol/L 10:23 AM [facility] Glucose 108 (H) 70 - 99 11/07/2018 [place] mg/dL 10:23 AM [facility] Urea Nitrogen 23 7 - 30 11/07/2018 [place] mg/dL 10:23 AM [facility] Creatinine 1.47 (H) 0.66 - 11/07/2018 [place] 1.25 mg/dL 10:23 AM [facility] GFR Estimate 46 (L) >60 11/07/2018 [place] mL/min/{1. 10:23 AM [facility] 73_m2} [facility]OSPITAL Comment: Non GFR Calc Starting 10/05/2018, serum creatinine ba sed estimated GFR (eGFR) will be calculated using the Chronic Kidney Dise [facility] Epidemiology Collaboration (CKD-EPI) equation. GFR Estimate If 53 (L) >60 mL/min/{1.73_m2} 11/07/2018 10 :23 AM [place] Black [facility] Comment: GFR Calc Starting 10/05/2018, serum creatinine ba sed estimated GFR (eGFR) will be calculated using the Chronic Kidney Dise [facility] Epidemiology Collaboration (CKD-EPI) equation. Calcium 8.2 (L) 8.5 - 10.1 mg/dL 11/07/2018 10:[address] [facility] Specimen Anatomical Collection Method Collection Time Receive d Time (Source) Location / / Volume Laterality Blood specimen 11/07/2018 9:50 AM 019 (specimen) FRUIT [facility]YER 10:04 AM [facility] Gurwinder Godoy MD LAB - BLOOD ORDERABLES Performing Organization Address City/State/ZIP Code Phon e Number [facility] [address] [address] [phone] [facility] [address] [address], U [phone] (ABNORMAL) Glucose by meter (11/07/2018 7:44 AM FR[facility] DRYER) P athologist Signature Glucose 112 (H) 70 - 99 11/07/2018 [facility] mg/dL 7:56 AM [facility] TEST, GLUCOSE Specimen Anatomical Collection Method Collection Time Receive d Time (Source) Location / / Volume Laterality 11/07/2018 7:44 AM 9 7:56 FRUIT DRYER AM FRUIT DRYER Juan YUAN - CAROLYN POCT Performing Organization Address City/State/ZIP Code Phon e Number [facility] POINT OF CARE TEST, GLUCOSE POINT OF CARE TEST, GLUCOSE (ABNORMAL) Glucose by meter (11/07/2018 3:49 AM FR[facility]YER) P athologist Signature Glucose 105 (H) 70 - 99 11/07/2018 [facility] mg/dL 4:01 AM FR[facility] TEST, GLUCOSE Specimen Anatomical Collection Method Collection Time Receive d Time (Source) Location / / Volume Laterality 11/07/2018 3:49 AM 9 4:01 FRUIT DRYER AM FRUIT DRYER Juan YUAN - CAROLYN POCT Performing Organization Address City/[facility]/ZIP Code Phon e Number [facility] POINT OF CARE TEST, GLUCOSE POINT OF CARE TEST, GLUCOSE (ABNORMAL) Glucose by meter (11/07/2018 12:08 AM FR[facility]YER) P athologist Signature Glucose 119 (H) 70 - 99 11/07/2018 [facility] mg/dL 12:19 AM FR[facility]ER TEST, GLUCOSE Specimen Anatomical Collection Method Collection Time Receive d Time (Source) Location / / Volume Laterality 11/07/2018 12:08 11/07/2018 AM [facility] 12:19 AM FRUIT DR[facility]ER Juan YUAN - CAROLYN POCT Performing Organization Address City/[facility]/ZIP Code Phon e Number [facility] POINT OF CARE TEST, GLUCOSE POINT OF CARE TEST, GLUCOSE (ABNORMAL) Glucose by meter (11/06/2018 7:53 PM FR[facility] DRYER) P athologist Signature Glucose 116 (H) 70 - 99 11/06/2018 [facility] mg/dL 8:04 PM FR[facility]ER TEST, GLUCOSE Specimen Anatomical Collection Method Collection Time Receive d Time (Source) Location / / Volume Laterality 11/06/2018 7:53 PM 9 8:04 FRUIT [facility]YER PM FR[facility]ER Juan YUAN - BEFOUZIA POCT Performing Organization Address City/[facility]/ZIP Code Phon e Number [facility] POINT OF CARE TEST, GLUCOSE POINT OF CARE TEST, GLUCOSE (ABNORMAL) Glucose by meter (11/06/2018 11:02 AM FR[facility]ER) P athologist Signature Glucose 109 (H) 70 - 99 11/06/2018 [facility] mg/dL 11:13 AM FR[facility]ER TEST, GLUCOSE Specimen Anatomical Collection Method Collection Time Receive d Time (Source) Location / / Volume Laterality 11/06/2018 11:02 11/06/2018 AM [facility] 11:13 AM [facility] Juan Lewis MD LAB - BEAKER POCT Performing Organization Address City/State/ZIP Code Phon e Number [facility] POINT OF CARE TEST, GLUCOSE POINT OF CARE TEST, GLUCOSE (ABNORMAL) Glucose by meter (11/06/2018 7:38 AM FR[facility]) P athologist Signature Glucose 104 (H) 70 - 99 11/06/2018 [facility] mg/dL 7:50 AM FR[facility]ER TEST, GLUCOSE Specimen Anatomical Collection Method Collection Time Receive d Time (Source) Location / / Volume Laterality 11/06/2018 7:38 AM 9 7:50 FRUIT [facility]YER AM FRUIT DRYER Juan Lewis MD LAB - BEAKER POCT Performing Organization Address City/State/ZIP Code Phon e Number [facility] POINT OF CARE TEST, GLUCOSE POINT OF CARE TEST, GLUCOSE Lactic acid whole blood (11/06/2018 4:15 AM FR[facility]) P athologist Signature Lactic Acid 1.4 0.7 - 2.0 11/06/2018 [facility] mmol/L 4:40 AM [facility] Specimen Anatomical Collection Method Collection Time Receive d Time (Source) Location / / Volume Laterality Blood specimen 11/06/2018 4:15 AM 019 4:25 (specimen) FRUIT DRYER AM FRUIT DRYER Bessy Mccray MD LAB - BLOOD ORDERABLES Performing Organization Address City/State/ZIP Code Phon e Number [facility] [address] [address] [facility] [address] [address], U [phone] (ABNORMAL) Basic metabolic panel (11/06/2018 4:15 AM FR[facility]ER) Analysis Performed At Patho logist Time Signature Sodium 142 133 - 144 11/06/2018 [facility] mmol/L 4:49 AM [facility] Potassium 4.4 3.4 - 5.3 11/06/2018 [place] mmol/L 4:49 AM [facility] Chloride 113 (H) 94 - 109 11/06/2018 [place] mmol/L 4:49 AM [facility] Carbon Dioxide 21 20 - 32 11/06/2018 [place] mmol/L 4:54 AM [facility] Anion Gap 8 3 - 14 11/06/2018 [place] mmol/L 4:54 AM [facility] Glucose 115 (H) 70 - 99 11/06/2018 [place] mg/dL 4:54 AM [facility] Urea Nitrogen 27 7 - 30 11/06/2018 [place] mg/dL 4:54 AM [facility] Creatinine 1.57 (H) 0.66 - 11/06/2018 [facility] 1.25 mg/dL 4:54 AM [facility] GFR Estimate 42 (L) >60 11/06/2018 [place] mL/min/{1. 4:54 AM [facility] 73_m2} HOSPITAL Comment: Non GFR Calc Starting 10/05/2018, serum creatinine ba sed estimated GFR (eGFR) will be calculated using the Chronic Kidney Dise [facility] Epidemiology Collaboration (CKD-EPI) equation. GFR Estimate If 49 (L) >60 mL/min/{1.73_m2} 11/06/2018 4: 54 AM [facility] Comment: GFR Calc Starting 10/05/2018, serum creatinine ba sed estimated GFR (eGFR) will be calculated using the Chronic Kidney Dise [facility] Epidemiology Collaboration (CKD-EPI) equation. Calcium 7.8 (L) 8.5 - 10.1 mg/dL 11/06/2018 4:[address] [facility] Specimen Anatomical Collection Method Collection Time Receive d Time (Source) Location / / Volume Laterality Blood specimen 11/06/2018 4:15 AM 019 4:25 (specimen) FRUIT DRYER AM [facility] Bessy Mccray MD LAB - BLOOD ORDERABLES Performing Organization Address City/State/ZIP Code Phon e Number [facility] [address] [address] [facility] [address] [address], U SA [phone] (ABNORMAL) CBC with platelets (11/06/2018 4:15 AM FR[facility]YER) Analysis Performed At Patho logist Time Signature WBC 12.9 (H) 4.0 - 11.0 11/06/2018 [facility] 10e9/L 4:45 AM [facility] RBC Count 3.93 (L) 4.4 - 5.9 11/06/2018 [facility] 10e12/L 4:45 AM [facility] Hemoglobin 12.5 (L) 13.3 - 11/06/2018 [facility] 17.7 g/dL 4:45 AM [facility] Hematocrit 36.8 (L) 40.0 - 11/06/2018 [facility] 53.0 % 4:45 AM [facility] MCV 94 78 - 100 11/06/2018 [facility] fl 4:45 AM [facility] MCH 31.8 26.5 - 11/06/2018 [facility] 33.0 pg 4:45 AM [facility] MCHC 34.0 31.5 - 11/06/2018 [facility] 36.5 g/dL 4:45 AM [facility] RDW 13.2 10.0 - 11/06/2018 [facility] 15.0 % 4:45 AM [facility] Platelet Count 153 150 - 450 11/06/2018 [facility] 10e9/L 4:45 AM [facility] Specimen Anatomical Collection Method Collection Time Receive d Time (Source) Location / / Volume Laterality Blood specimen 11/06/2018 4:15 AM 019 4:25 (specimen) FRUIT DRYER AM FR[facility] Bessy Mccray MD LAB - BLOOD ORDERABLES Performing Organization Address City/State/ZIP Code Phon e Number [facility] [address] [address] [facility] [address] [address], [place] [phone] (ABNORMAL) Glucose by meter (11/06/2018 1:12 AM FRUIT DRYER) P athologist Signature Glucose 126 (H) 70 - 99 11/06/2018 [facility] mg/dL 1:24 AM FRUIT [facility]YER TEST, GLUCOSE Specimen Anatomical Collection Method Collection Time Receive d Time (Source) Location / / Volume Laterality 11/06/2018 1:12 AM 9 1:24 FRUIT DRYER AM FRUIT DRYER Juan YUAN - BEAKER POCT Performing Organization Address City/State/ZIP Code Phon e Number [facility] POINT OF CARE TEST, GLUCOSE POINT OF CARE TEST, GLUCOSE Methicillin Resist/Sens S. aureus PCR (11/05/2018 11:41 PM FRUIT DRYER) Patholo gist Method Time Signature Specimen Nares 11/05/2018 [place] Description 11:45 PM FRUIT DRYER [facility] Methicillin Negative NEG^Negat 11/06/2018 [facility] Resist/Sens S. shin 2:36 AM [facility] aureus PCR [facility] Comment: MRSA Negative: SA Negative ??MRSA and St aphylococcus aureus target DNA not detected, presumed negative for MRSA and SA colonization or the number of bacteria present may be below the limit of detection for the assay. FDA approved assay performed using [employer] enTabSquareert(R) real-time PCR. Specimen (Source) Anatomical Collection Method Collection Time Re ceived Time Location / / Volume Laterality Nasal structure 11/05/2018 11:41 11/06/19 19 (body structure) PM FR[facility]ER Bessy Mccray MD LAB - MICRO GENERAL ORDERABL ES Performing Organization Address City/[facility]/ZIP Code Phon e Number [facility] [address] [place] [address] [facility] [address] [place] [address], U [phone] (ABNORMAL) Glucose by meter (11/05/2018 8:16 PM FRUIT DRYER) P athologist Signature Glucose 128 (H) 70 - 99 11/05/2018 [facility] mg/dL 8:28 PM FRUIT DRYER TEST, GLUCOSE Specimen Anatomical Collection Method Collection Time Receive d Time (Source) Location / / Volume Laterality 11/05/2018 8:16 PM 9 8:28 FRUIT DRYER PM FRUIT DRYER Juan YUAN - BEFOUZIA POCT Performing Organization Address City/State/ZIP Code Phon e Number [facility] POINT OF CARE TEST, GLUCOSE POINT OF CARE TEST, GLUCOSE (ABNORMAL) Glucose by meter (11/05/2018 4:39 PM FR[facility] DRYER) P athologist Signature Glucose 124 (H) 70 - 99 11/05/2018 [facility] mg/dL 4:50 PM FRUIT DRYER TEST, GLUCOSE Specimen Anatomical Collection Method Collection Time Receive d Time (Source) Location / / Volume Laterality 11/05/2018 4:39 PM 9 4:50 FRUIT DRYER PM FRUIT [facility]YER Juan Lewis MD LAB - BEAKER POCT Performing Organization Address City/State/ZIP Code Phon e Number [facility] POINT OF CARE TEST, GLUCOSE POINT OF CARE TEST, GLUCOSE (ABNORMAL) CBC with platelets (11/05/2018 4:35 PM FRUIT DRYER) Analysis Performed At Patho logist Time Signature WBC 7.3 4.0 - 11.0 11/05/2018 [facility] 10e9/L 5:22 PM [facility] RBC Count 4.35 (L) 4.4 - 5.9 11/05/2018 [facility] 10e12/L 5:22 PM [facility] Hemoglobin 13.7 13.3 - 11/05/2018 [facility] 17.7 g/dL 5:22 PM [facility] Hematocrit 40.9 40.0 - 11/05/2018 [facility] 53.0 % 5:22 PM [facility] MCV 94 78 - 100 11/05/2018 [facility] fl 5:22 PM [facility] MCH 31.5 26.5 - 11/05/2018 [facility] 33.0 pg 5:22 PM [facility] MCHC 33.5 31.5 - 11/05/2018 [facility] 36.5 g/dL 5:22 PM [facility] RDW 13.1 10.0 - 11/05/2018 [facility] 15.0 % 5:22 PM [facility] Platelet Count 108 (L) 150 - 450 11/05/2018 [facility] 10e9/L 5:22 PM [facility] Specimen Anatomical Collection Method Collection Time Receive d Time (Source) Location / / Volume Laterality Blood specimen 11/05/2018 4:35 PM 019 5:17 (specimen) FRUIT DRYER PM FR[facility]YER Bessy Mccray MD LAB - BLOOD ORDERABLES Performing Organization Address City/State/ZIP Code Phon e Number [facility] [address] [place] [address] [phone] [facility] [address] [place] [address], U [place] [phone] INR (11/05/2018 4:35 PM FRUIT DRYER) P athologist Signature INR 1.03 0.86 - 1.14 11/05/2018 [place] 5:33 PM [facility] Specimen Anatomical Collection Method Collection Time Receive d Time (Source) Location / / Volume Laterality Blood specimen 11/05/2018 4:35 PM 019 5:17 (specimen) FRUIT DRYER PM FR[facility] Bessy Mccray MD LAB - BLOOD ORDERABLES Performing Organization Address City/State/ZIP Code Phon e Number [facility] [address] [place] [address] [phone] [facility] [address] [place] [address], U SA [phone] Lactic acid whole blood (11/05/2018 4:35 PM FRUIT DRYER) P athologist Signature Lactic Acid 1.0 0.7 - 2.0 11/05/2018 [place] mmol/L 5:57 PM [facility] Specimen Anatomical Collection Method Collection Time Receive d Time (Source) Location / / Volume Laterality Blood specimen 11/05/2018 4:35 PM 019 5:18 (specimen) FRUIT DRYER PM FRUIT DRYER Bessy Mccray MD LAB - BLOOD ORDERABLES Performing Organization Address City/State/ZIP Code Phon e Number [facility] [address] [place] [address] [phone] [facility] [address] [place] [address], U [place] [phone] (ABNORMAL) Basic metabolic panel (11/05/2018 4:35 PM FRUIT DRYER) Analysis Performed At Patho logist Time Signature Sodium 143 133 - 144 11/05/2018 [place] mmol/L 5:38 PM [facility] Potassium 4.3 3.4 - 5.3 11/05/2018 [facility] mmol/L 5:38 PM [facility] Chloride 113 (H) 94 - 109 11/05/2018 [facility] mmol/L 5:38 PM [facility] Carbon Dioxide 22 20 - 32 11/05/2018 [facility] mmol/L 5:43 PM [facility] Anion Gap 8 3 - 14 11/05/2018 [facility] mmol/L 5:43 PM [facility] Glucose 121 (H) 70 - 99 11/05/2018 [facility] mg/dL 5:43 PM [facility] Urea Nitrogen 24 7 - 30 11/05/2018 [facility] mg/dL 5:43 PM [facility] Creatinine 1.30 (H) 0.66 - 11/05/2018 [facility] 1.25 mg/dL 5:43 PM [facility] GFR Estimate 53 (L) >60 11/05/2018 [place] mL/min/{1. 5:43 PM [facility] 73_m2} HOSPITAL Comment: Non GFR Calc Starting 10/05/2018, serum creatinine ba sed estimated GFR (eGFR) will be calculated using the Chronic Kidney Dise [facility] Epidemiology Collaboration (CKD-EPI) equation. GFR Estimate If 61 >60 mL/min/{1.73_m2} 11/05/2018 5: 43 PM [facility] Comment: GFR Calc Starting 10/05/2018, serum creatinine ba sed estimated GFR (eGFR) will be calculated using the Chronic Kidney Dise [facility] Epidemiology Collaboration (CKD-EPI) equation. Calcium 8.6 8.5 - 10.1 mg/dL 11/05/2018 5:[address] [facility] Specimen Anatomical Collection Method Collection Time Receive d Time (Source) Location / / Volume Laterality Blood specimen 11/05/2018 4:35 PM 019 5:17 (specimen) FRUIT DRYER PM [facility] Bessy Mccray MD LAB - BLOOD ORDERABLES Performing Organization Address City/State/ZIP Code Phon e Number [facility] [address] [address] [phone] [facility] [address] [place] [address], U [phone] IR Thoracic Endovascular Stent Graft (11/05/2018 12:09 PM [facility]) Anatomical Region Laterality Modality Chest Radio Fluoroscopy Specimen (Source) Anatomical Location Collection Method / Collectio n Time Received Time / Laterality Volume Impressions 11/06/2018 3:33 PM [facility] IMPRESSION: Successful deployment in 2 components for [...] KANNAN MORSE MD Narrative 11/06/2018 3:33 PM [facility] INTERVENTIONAL RADIOLOGY THORACIC ENDOVASCULAR STENT GRAFT ??11/05/2018 [...] cm. Plan is for endovascular repair with Alcyone [employer] Valiant Navion stent graft system. TECHNIQUE: Please [...] tion. Over a series of maneuvers, 6 Ethiopian vascular sheath was placed. From left groin [...] cm. Plan is for endovascular repair with Alcyone [employer] Valiant Navion stent graft system. TECHNIQUE: Please [...] tion. Over a series of maneuvers, 6 Ethiopian vascular sheath was placed. From left groin [...] Drain Placement w Fluoro (11/05/2018 9:10 AM FR[facility]) Anatomical Region Laterality Modality Spine Radio Fluoroscopy Specimen (Source) Anatomical Location Collection Method / Collectio n Time Received Time / Laterality Volume Narrative 11/05/2018 9:19 AM [facility] RAD[facility]Y INTERVENTIONAL NEURORADIOLOGY PROCEDURAL NOTE FLUOROSCOPICALLY [...] codes included for physician referen ce only: [id number] MISSAEL GARCIA MD Procedure Note Missael Garcia MD - 11/05/2018For matting of this note might be different from the original. [facility] RADIOLOGY INTERVENTIONAL NEURORADIOLOGY PROCEDURAL NOTE FLUOROSCOPICALLY [...] codes included for physician referen ce only: [id number] MISSAEL GARCIA MD Butch Brown MD IMG IR ORDERABLES EKG 12-lead, tracing only (11/05/2018 6:58 AM [facility]) [facility] gist Method Time Signature Interpretation ECG Click View RADIOLOGY Image link RESULTS to view waveform and result Specimen (Source) Anatomical Collection Method Collection Time Re ceived Time Location / / Volume Laterality 11/05/2018 6:58 AM [facility] Juan Lewis MD ECG ORDERABLES Performing Organization Address City/State/ZIP Code Phon e Number RADIOLOGY RESULTS Potassium (11/05/2018 6:55 AM [facility]) athologist Signature Potassium 4.3 3.4 - 5.3 11/05/2018 [facility] mmol/L 7:15 AM [facility] Specimen Anatomical Collection Method Collection Time Receive d Time (Source) Location / / Volume Laterality Blood specimen 11/05/2018 6:55 AM 019 6:56 (specimen) FRUIT [facility] AM [facility] Zakia Tobin MD LAB - BLOOD ORDERABLES Performing Organization Address City/State/ZIP Code Phon e Number [facility] [address] [place] [address] [facility] [address] [place] [address], [place] [phone] Lipid panel (11/05/2018 6:55 AM [facility]ER) Analysis Performed At Patho logist Time Signature Cholesterol 128 <200 mg/dL 11/05/2018 [facility] 7:20 AM [facility] Triglycerides 125 <150 mg/dL 11/05/2018 [facility] 7:21 AM [facility] HDL Cholesterol 59 >39 mg/dL 11/05/2018 [facility] 7:23 AM [facility] LDL Cholesterol 44 <100 mg/dL 11/05/2018 [facility] Calculated 7:23 AM [facility] Comment: Desirable: <100 mg/dl Non HDL Cholesterol 69 <130 mg/dL 11/05/2018 7:[address] [facility] Specimen Anatomical Collection Method Collection Time Receive d Time (Source) Location / / Volume Laterality Blood specimen 11/05/2018 6:55 AM 019 6:56 (specimen) FRUIT [facility]YER AM [facility]ER Juan Leiws MD LAB - BLOOD ORDERABLES Performing Organization Address City/State/ZIP Code Phon e Number [facility] [address] [place] [address] [facility] [address] [place] [address], [place] [phone] Hemoglobin A1c (11/05/2018 6:55 AM [facility]) P athologist Signature Hemoglobin A1C 5.2 0 - 5.6 % 11/05/2018 [facility] 7:30 AM [facility] Comment: Normal <5.7% Prediabetes 5.7-6.4% ??Diab etes 6.5% or higher - adopted from ADA consensus guidelines. Specimen Anatomical Collection Method Collection Time Receive d Time (Source) Location / / Volume Laterality Blood specimen 11/05/2018 6:55 AM 019 6:56 (specimen) FRUIT [facility]YER AM [facility]ER Juan Lewis MD LAB - BLOOD ORDERABLES Performing Organization Address City/State/ZIP Code Phon e Number [facility] [address] [place] [address] [facility] [address] [place] [address], [place] [phone] (ABNORMAL) Creatinine (11/05/2018 6:55 AM [facility]ER) athologist Signature Creatinine 1.52 (H) 0.66 - 11/05/2018 [place] 1.25 mg/dL 7:20 AM [facility] GFR Estimate 44 (L) >60 11/05/2018 [place] mL/min/{1. 7:20 AM [facility] 73_m2} [facility] Comment: Non GFR Calc Starting 10/05/2018, serum creatinine ba sed estimated GFR (eGFR) will be calculated using the Chronic Kidney Dise [facility] Epidemiology Collaboration (CKD-EPI) equation. GFR Estimate If 51 (L) >60 mL/min/{1.73_m2} 11/05/2018 7: 20 AM [facility] Comment: GFR Calc Starting 10/05/2018, serum creatinine ba sed estimated GFR (eGFR) will be calculated using the Chronic Kidney Dise [facility] Epidemiology Collaboration (CKD-EPI) equation. Specimen Anatomical Collection Method Collection Time Receive d Time (Source) Location / / Volume Laterality Blood specimen 11/05/2018 6:55 AM 019 6:56 (specimen) FRUIT DRYER AM [facility]ER Juan Lewis MD LAB - BLOOD ORDERABLES Performing Organization Address City/State/ZIP Code Phon e Number [facility] [address] [place] [address] [facility] [address] [place] [address], [place] [phone] XR Chest Port 1 View (11/05/2018 6:40 AM [facility]ER) Anatomical Region Laterality Modality Chest Digital Radiography Specimen (Source) Anatomical Location Collection Method / Collectio n Time Received Time / Laterality Volume Impressions 11/05/2018 6:58 AM [facility]ER IMPRESSION: No acute abnormality. TORI SANTIZO MD Narrative 11/05/2018 6:58 AM [facility] XR CHEST PORTABLE 1 VIEW ?? 11/05/2018 [...] CARDIAC - HIM SCAN (09/24/2018 12:00 AM FR[facility]ER) Specimen (Source) Anatomical Location Collection Method / [...] tablet 975 mg Given 11/08/2018 11:04 PM [facility]ER 975 mg 975 mg, Oral, EVERY 6 HOURS PRN, mild pain, fever, Starting on Thu11/05/18 at 1827, Maximum acetaminophen dose from all sources = 75 mg/kg/day not to exceed 4 grams/day. Given 11/08/2018 12:37 PM [facility] 975 mg Given 11/07/2018 11:03 AM [facility] 975 mg alum & mag hydroxide-simethicone (MYLANTA Given 11/08/2018 2:48 AM [facility] 30 mLs ES/MAALOX ES) suspension 30 mL 30 mL, Oral, EVERY 4 HOURS PRN, indigestion, Starting on Thu11/05/18 at 1510, Shake well. apixaban ANTICOAGULANT (ELIQUIS) tablet 2.5 Given 10/20 12:04 PM [facility] 2.5 mg mg 2.5 mg, Oral, 2 TIMES DAILY, First dose on Thu11/09/18 at 1115 atorvastatin (LIPITOR) tablet 40 mg Given 11/08/2018 8:20 PM [facility] 40 mg 40 mg, Oral, EVERY EVENING, First dose on Thu11/05/18 at 2000 Given 11/07/2018 7:49 PM [facility] 40 mg Given 11/06/2018 9:16 PM [facility] 40 mg calcium carbonate (TUMS) chewable tablet Given 11/07/2018 10 :34 PM [facility] 1,000 mg 1,000 mg 1,000 mg, Oral, EVERY 2 HOURS PRN, heartburn, Starting on Thu11/06/18 at 0408, Do not give if calcium level greater than 10 mg/dL. Given 11/07/2018 12:05 AM [facility] 1,000 mg Given 11/06/2018 4:50 AM [facility] 1,000 mg clindamycin (CLEOCIN) infusion 900 New Bag 11/06/2018 2:05 AM [facility] 900 mg 50 mL/hr mg Routine, 900 mg, Intravenous, EVERY 8 HOURS, First dose on Thu11/05/18 at 1800, For 2 doses, Indications: Perioperative Pharmacoprophylaxis, Post-procedure New Bag 11/05/2018 6:08 PM [facility]ER 900 mg 50 mL/hr cyclobenzaprine (FLEXERIL) tablet 5-10 m g Given 11/08/2018 3:58 AM [facility] 10 mg 5-10 mg, Oral, 3 TIMES DAILY PRN, muscle spasms, Starting on Thu11/07/18 at 1153 Given 11/07/2018 2:26 PM [facility] 5 mg dextrose 5% and 0.45% NaCl infusion New Bag 11/08/2018 6:44 PM [facility] 75 mL/hr at 75 mL/hr, Intravenous, CONTINUOUS, Starting on Thu11/07/18 at 1200, Until Thu11/09/18 at 0731 Restarted 11/08/2018 4:21 PM FR[facility]ER 75 mL/hr New Bag 11/08/2018 7:35 AM [facility] 100 mL/hr diphenhydrAMINE (BENADRYL) injection 12. 5 mg 12.5 mg, Intravenous, EVERY 6 HOURS PRN, itching, Only give if patient unable to take PO., Starting on Thu11/05/18 at 151 0, Caution to be used when administering multiple BREAKER OPERATOR depressing meds within a sh ort time frame. For ordered IV doses 1-50 mg, give IV Push undiluted. Give each 25 mg over a minimum of 1 minute. Extend in non-emergency diphenhydrAMINE (BENADRYL) solution 12.5 mg 12.5 mg, Oral, EVERY 6 HOURS PRN, itchin g, Starting on Thu11/05/18 at 1510, Caution to be used when administering multiple BREAKER OPERATOR depressing meds within a short time frame. fentaNYL (PF) (SUBLIMAZE) 100 MCG/2ML in jection Starting on Thu11/05/18 at 0841, For 1 d Rob thomas Callie : cabinet override For ordered IV doses 1-100 mcg give IV Push undiluted over a minimum of 3-5 minutes. fentaNYL (PF) (SUBLIMAZE) injection 100 mcg Given 11/05/2018 7:45 AM [facility] 50 mcg 100 mcg, Intravenous, ONCE, Administer over 3-5 Minutes, On Thu11/05/18 at 0745, For 1 dose, For ordered IV doses 1-100 mcg give IV Push undiluted over a minimum of 3-5 minutes., Pre-procedure Given 11/05/2018 7:31 AM [facility] 50 mcg fentaNYL (PF) (SUBLIMAZE) injection 25-5 0 mcg Given 11/05/2018 8:48 AM [facility] 50 mcg 25-50 mcg, Intravenous, EVERY 5 [...] 50 m cg Given 11/05/2018 1:33 PM [facility] 50 mcg 50 mcg, Intravenous, EVERY 5 MIN PRN, moderate to severe pain, Administer over 3-5 Minutes, Starting on Thu11/05/18 at 1333, For ordered IV doses 1-100 mcg give IV Push undiluted over a minimum of 3-5 minutes., PACU hydrALAZINE (APRESOLINE) injection 10-20 mg Given 11/08/2018 7:03 PM [facility] 10 mg 10-20 mg, Intravenous, EVERY 1 [...] over 1 minute. Given 11/08/2018 11:51 AM FR[facility]ER 20 mg Given 11/08/2018 3:36 AM [facility]ER 20 mg labetalol (NORMODYNE/TRANDATE) 5 MG/ML i njection Starting on Thu11/05/18 at 1521, For 1 d [employer] thomas Doreen : cabinet override For ordered doses up to 80 mg, give IV Push undiluted. Give each 20 mg over 2 minutes. labetalol (NORMODYNE/TRANDATE) injection 10 mg Given 11/05/2018 3:43 PM [facility]ER 10 mg 10 mg, Intravenous, EVERY 10 [...] 2 minutes., Post-procedure Given 11/05/2018 3:25 PM FR[facility]ER 10 mg labetalol (NORMODYNE/TRANDATE) injection 10 mg Given 11/05/2018 1:45 PM [facility]ER 10 mg 10 mg, Intravenous, ONCE, Administer over 2-8 Minutes, On Thu11/05/18 at 1400, For 1 dose, For ordered doses up to 80 mg, give IV Push undiluted. Give each 20 mg over 2 minutes., PACU labetalol (NORMODYNE/TRANDATE) injection 10-20 Given 0 11/08/2018 3:03 AM [facility] 10 mg mg 10-20 mg, Intravenous, EVERY [...] over 2 minutes. Given 11/08/2018 2:33 AM [facility] 20 mg Given 11/07/2018 10:35 PM [facility] DR[facility]ER 10 mg labetalol (NORMODYNE/TRANDATE) injection 20 Given 11/05/2018 12:37 PM [facility] DR[facility]ER 10 mg mg 20 mg, Intravenous, ONCE, Administer over 2-8 Minutes, On Thu11/05/18 at 1315, For 1 dose, For ordered doses up to 80 mg, give IV Push undiluted. Give each 20 mg over 2 minutes., Pre-procedure labetalol (NORMODYNE/TRANDATE) injection 5 mg Given 11/05/2018 1:13 PM [facility] 5 mg 5 mg, Intravenous, ONCE, Administer over 2-8 Minutes, On Thu11/05/18 at 1315, For 1 dose, For ordered doses up to 80 mg, give IV Push undiluted. Give each 20 mg over 2 minutes., PACU lactated ringers infusion New Bag 11/05/2018 6:52 AM [facility] 25 mL/hr at 25 mL/hr, Intravenous, CONTINUOUS, IF patient NOT on dialysis., Pre-procedure, Starting on Thu11/05/18 at 0645, Until Thu11/05/18 at 0836 lidocaine 1 % 1 mL Given 11/05/2018 6:53 AM [facility] 0.3 mLs 1 mL, Other, EVERY 1 [...] 2 5 mg Given 11/08/2018 8:22 AM [facility] 25 mg 25 mg, Oral, 2 TIMES DAILY, First dose (after last modification) on Thu11/05/18 at 1615 Given 11/07/2018 7:49 PM [facility] 25 mg Given 11/07/2018 11:14 AM [facility] 25 mg metoprolol tartrate (LOPRESSOR) tablet 5 0 mg Given 11/09/2018 8:28 AM [facility] 50 mg 50 mg, Oral, 2 TIMES DAILY, First dose on Thu11/08/18 at 2100, Hold for SBP < 90, HR < 50 Given 11/08/2018 8:20 PM [facility] 50 mg midazolam (VERSED) 1 MG/ML injection Starting on Thu11/05/18 at 0841, For 1 d Rob thomas Callie : cabinet override For ordered IV doses 0.1-2.5 mg give IV Push slowly titrat ed over a minimum of 2 minutes. Dilute each 1mg in 4mL of NS. midazolam (VERSED) injection 0.5-1 mg Given 11/05/2018 8:48 AM [facility]ER 1 mg 0.5-1 mg, Intravenous, Administer over [...] injection 4 mg Given 11/05/2018 7:53 AM [facility]ER 1 mg 4 mg, Intravenous, Administer over 2 Minutes, EVERY 4 MIN PRN, anxiety, Starting on Thu11/05/18 at 0732, For ordered IV doses 0.1-2.5 mg give IV Push slowly titrated over a minimum of 2 minutes. Dilute each 1mg in 4mL of NS., Pre-procedure Given 11/05/2018 7:49 AM [facility]ER 1 mg Given 11/05/2018 7:38 AM FR[facility] DR[facility]ER 1 mg omeprazole (priLOSEC) CR capsule 20 mg Given 11/09/2018 6:33 AM FR[facility] DR[facility]ER 20 mg 20 mg, Oral, EVERY MORNING BEFORE BREAKFAST, First dose on 11/07/18 at 2345 Given 11/08/2018 8:22 AM FR[facility]ER 20 mg Given 11/07/2018 11:48 PM [facility]ER 20 mg ondansetron (ZOFRAN) injection 4 mg Given 11/07/2018 11:48 PM [facility] 4 mg 4 mg, Intravenous, EVERY 6 [...] half-tab 2.5-5 mg Given 11/08/2018 12:37 PM [facility]ER 5 mg 2.5-5 mg, Oral, EVERY 4 HOURS PRN, moderate to severe pain, Starting on Thu11/05/18 at 1724 Given 11/08/2018 6:19 AM FR[facility]ER 5 mg Given 11/07/2018 7:49 PM FR[facility]ER 5 mg phenylephrine Rate/Dose Change 11/06/2018 6:45 0.3 mcg/kg/min 7.6 mL/ hr (OSIEL-SYNEPHRINE) 50 mg PM FRUIT DRYER in sodium chloride 0.9 % 250 mL [...] goals. Vesicant. Rate/Dose Change 11/06/2018 6:15 PM [facility]ER 0.5 mcg/kg/min 12.6 mL/hr Rate/Dose Change 11/06/2018 5:34 PM FR[facility]ER 0.7 mcg/kg/min 17.7 mL/hr sennosides (SENOKOT) tablet 8.6 mg Given 11/08/2018 3:36 AM FR[facility] DR[facility]ER 8.6 mg 8.6 mg, Oral, 2 TIMES DAILY PRN, constipation, Starting on Thu11/08/18 at 0250 sodium chloride (PF) 0.9% PF flush 3 mL Given 11/07/2018 4:12 PM FR[facility] DR[facility]ER 3 mLs 3 mL, Intracatheter, EVERY 8 HOURS, First dose on Thu11/05/18 at 1515, And Q1H PRN, to lock peripheral IV dormant line. Given 11/07/2018 11:34 AM FR[facility] DRYER 3 mLs Given 11/07/2018 12:06 AM FR[facility] DRYER 10 mLs sodium chloride 0.9% infusion New Bag 11/06/2018 7:48 PM FR[facility] DRYER 100 mL/hr at 100 mL/hr, Intravenous, CONTINUOUS, For patient on renal dialysis. Saline lock after 1 liter if taking PO fluids., Post-procedure, Starting on Thu11/05/18 at 1515, Until Thu11/08/18 at 1245 New Bag 11/06/2018 12:08 PM FR[facility]YER 100 mL/hr New Bag 11/06/2018 2:33 AM FR[facility] DRYER 100 mL/hr terazosin (HYTRIN) capsule 5 mg Given 11/08/2018 9:21 PM FR[facility] DRYER 5 mg 5 mg, Oral, AT BEDTIME, First dose on Thu11/05/18 at 2200 documented in this encounter Active and Recently Administered Medications Times are shown in FRUIT [facility]YER. Scheduled Medication Order 11/07/2018 11/08/2018 11/09/2018 apixaban ANTICOAGULANT (ELIQUIS) tablet 2.5 mg 1204 (Given - Provider: Kiki Traylor RN) 2.5 mg, Oral, 2 TIMES DAILY, First dose on Thu11/09/18 at 1115 atorvastatin (LIPITOR) tablet 40 mg 194 (Given - Provider: Kristy Castañeda RN) 2019 [...] Peck RN)194 (Given - Provider: Kristy Castañeda RN)2055 (Canceled [...] Provider: Ramiro Lozano RN)1134 (Given - Provider: Danetet Peck RN)1612 (Given - Provider: Aura Crooks [...] 1426 (N ew Bag - Provider: Danette Peck, RN)1535 (Rate/Dose Verify - Provider: Aura Crooks, RN)2330 (New Bag - Provider: Kristy Castañeda, JOSE) 0735 (New Bag - Provider: Aura Crooks , RN)1400 (Stopped - Provider: Aura Crooks, RN)1621 (Restarted - Provider: Aura Crooks, RN)1844 (New Bag - Provider: Misty Villalobos RN) at 75 mL/hr, Intravenous, CONTINUOUS, [facility] 11/07/18 at 1200, Until Tu11/09/18 at 0731 PRN Medication Order 11/07/2018 11/08/2018 [...] Peck RN) 1237 (Given - Provider: Aura Crooks, JOSE)2304 (Given - Provider: Maria C Dunbar, JOSE) [...] 1,000 mg 0005 (Given - Provider: Ramiro Lozano, RN)2234 (Given - Provider: Kristy Castañeda, RN) [...] Caution to be used when administering multiple BREAKER OPERATOR depressing meds within a short time frame. For ordered IV doses 1-50 m g, give IV Push undiluted. Give each 25mg over a minimum of 1 minute. Extend in non-emergency diphenhydrAMINE (BENADRYL) solution 12.5 mg(Linked Group 1) 12.5 mg, Oral, EVERY 6 HOURS PRN, itchin g, Starting 11/05/18 at 1510, Caution to be used when administering multiple BREAKER OPERATOR depressing meds within a short time frame. hydrALAZINE (APRESOLINE) injection 10-20 mg 0155 (Give n - Provider: Ramiro Lozano RN)0343 (Given - Provider: Ramiro Lozano RN)1053 (Given - Provider: Danette Peck, JOSE) 0336 (Given - Provider: Kristy Castañeda, JOSE )1151 (Given - Provider: Aura Crooks, JOSE)1903 [...] 10-20 mg 0147 (Given - Provider: Ramiro Lozano, RN)0419 (Given - Provider: Ramiro Lozano, RN)0758 (Given - Provider: Danette Peck, JOSE)0939 (Given - Provider: Danette Peck, RN)1014 (Given - Provider: Danette Peck, RN) 0233 (Given - Provider: Kristy Castañeda, RN)0303 (Given - Provider: Kristy Castañeda, JOSE) 10-20 mg, Intravenous, EVERY 10 MIN PRN, high blood pressure, Administer over 1- 2 Minutes, Starting Thu11/05/18 at 1621, To achieve blood pressure of systolic < 160 mmHg Note for nurse: if both labet 4 (Given - Provider: Kristy Castañeda, JOSE)2235 (Given [...] 2) 23 48 (Given - Provider: Kristy Castañeda, JOSE) 4 mg, Intravenous, EVERY 6 HOURS PRN, na usea, vomiting, Administer over 2-5 Minutes, Starting 11/05/18 at 1510, This is Step 1 of nausea and vomiting management. If nausea not resolved in 15 minutes, go to Step 2 prochlorperazine (COMPAZIN E). Irritant. For ordered IV doses 0.1-4 mg, give IV Push undiluted over 2-5 minutes. ondansetron (ZOFRAN-ODT) ODT tab 4 mg(Linked Group 2) 0870 (See Alternative - Provider: Kristy Castañeda, JOSE) [...] 0456 (Give n - Provider: Ramiro Lozano, RN)1009 (Given - Provider: Danette Peck, RN)1530 (Given - Provider: Aura Crooks, RN)1949 (Given - Provider: Kristy Castañeda, JOSE) 0619 [...]
Caution to be used when administering multiple BREAKER OPERATOR depressing meds within a short time frame.
Or diphenhydrAMINE (BENADRYL) injection 12.5 mgJump to med 12.5 mg, Intravenous, EVERY 6 HOURS PRN, itching, Only give if patient unable to take PO., Starting Thu11/05/18 at 1510
Caution to be used when administering multiple BREAKER OPERATOR depressing meds within a short time [...] documented as of this encounter Care Teams Open Hearth Furnace Laborer Relationship Specialty Start Date End Date [facility] [place] PCP - General 05/12/[address] [place] [id number] documented as of this encounter
--- OUTSIDE RECORDS SUMMARY | 2022-07-31 13:57 | XMS_ITS | Encounter Summary ---
:1940 Author Organization [place] Address [facility] [place] [address] Care Team Providers Name Role Phone Clinic, [facility] Primary Care Provider [phone] Encounter Details Date Type Department Care Team Description 11/05/2018 Anesthesia Event [facility] Zakia Santoyo, Interventional Radio logy [address] [place] [address] ANESTHESIOLOGY [phone] [address] [place] [address] [address] Anesthesia Record Procedure Summary Procedure Name Responsible [...] Site 11/08/18; 0600; Lower; 11/08/18 0600 by Vicky garcia Back; Lumbar drain site Kristy Farrell RN documented [...] on filedocumented in this encounter Care Teams Forging Machine Hand Relationship Specialty Start Date End Date Kehinde Portillo PCP - General 05/12/[address] [place] [address] documented as of this encounter
--- OUTSIDE RECORDS SUMMARY | 2022-07-31 13:57 | XMS_ITS | Encounter Summary ---
:1940 Author Organization [place] Address [address] [facility] [place] [address] Care Team Providers Name Role Phone Clinic, [facility] Primary Care Provider [phone] Encounter Details Date Type Department Care Team Description 11/05/2018 Anesthesia Event [facility] Bart Feliciano [place] MD Interventional [facility] Radiology [address] [place] [address] [place] [id number] [phone] Anesthesia Record Procedure Summary Procedure Name Responsible [...] Indicated Resolved Time MRSAComment: Positive 02/17/11 and 1211/05/2018 019 Negatives 05/03/14 (HE), 12/01/14 (HE) documented as of this encounter Care Teams Warping Mill Operator Relationship Specialty Start Date End Date Clinic, [facility] PCP - General 05/12/[address] [place] [id number] documented as of this encounter
--- OUTSIDE RECORDS SUMMARY | 2022-07-31 13:58 | XMS_ITS | Encounter Summary ---
:1940 Author Organization [place] Address [address] [facility] [place] [address] Care Team Providers Name Role Phone Clinic, [facility] Primary Care Provider [phone] Reason for Visit Reason Onset Date Comments Clinic Care Coordination - Follow-up 10/01/2018 Encounter Details Date Type Department Care Team Description 10/01/2018 Telephone [facility] Juan Lewis [facility] C are Coordination Vascular Clinic Félix Nava MD - Follow-up [address] [place] [address] [place] [address] Social History Tobacco Use Types Packs/Day Years [...] schedule an OV and he will call [place] on to discuss surgical plan after he has spoken with IR and the Anesthesia dept. Attempted to reach louise García with update and provided direct number for any further questions. SHASTA Winkler, RN NT SCOUT Telephone Encounter - Sondra Johnson RN - [...] appointment with Dr. Lewis. SHASTA Winkler, RN NT SCOUT Telephone Encounter - Sondra Johnson RN - 10/01/2018 1:[address] Lewis's request, contact pt's daughter Raquel with an update on care plan. Raquel updated that Dr. Lewis will contact her on Thursday with a new plan for her dad. Raquel was in agreement with this plan. SHASTA Winkler, RN NT SCOUT documented in this encounter Plan of Treatment Not on filedocumented as of this encounter Visit Diagnoses Not on filedocumented in this encounter Care Teams Insurance Agent Relationship Specialty Start Date End Date [place] [facility] PCP - General 05/12/[address] [place] [id number] documented as of this encounter
--- OUTSIDE RECORDS SUMMARY | 2022-07-31 13:58 | XMS_ITS | Encounter Summary ---
:1940 Author Organization [place] Address [address] [facility] [place] [address] Care Team Providers Name Role Phone [facility] Primary Care Provider [phone] Reason for Visit Surgical Procedure Inpatient (Routine) - Closed Specialty Diagnoses / Procedures Referred By Contact Refer red To Contact Surgery Diagnoses AAA Juan Lewis MD Saylor, Howard Leroy, Procedures *OR 51* DR. ALANIZ TO ASSIST WITH ENDOVASCULAR REPAIR OF AAA WITH [employer] [address] [place] [address] [address] [place] [address] Phone: Fax: Referral ID Status Reason Start Date Expiration Date Visits Requ ested Visits Authorized [id number] Closed 09/28/2018 09/28/2019 1 1 Encounter Details Date Type Department Care Team Description 09/28/2018 Office Visit SX SURGERY CASES Juan Lewis MD [address] [place] [id number] Fellow, Sh Surg Cons Social History Tobacco [...] filedocumented in this encounter Care Teams Statistical Technician Relationship Specialty Start Date End Date [facility] PCP - General 05/12/[address] [place], [place] [id number] documented as of this encounter
--- OUTSIDE RECORDS SUMMARY | 2022-07-31 13:58 | XMS_ITS | Encounter Summary ---
:1940 Author Organization [place] Address [address] [place] [address] Care Team Providers Name Role Phone [facility] Primary Care Provider [phone] Encounter Details Date Type Department Care Team [...] on filedocumented in this encounter Care Teams Children'S Attendant Relationship Specialty Start Date End [facility] - General 05/12/[address] [place] [id number] documented as of this encounter
--- OUTSIDE RECORDS SUMMARY | 2022-07-31 13:58 | XMS_ITS | Encounter Summary ---
:1940 Author Organization [place] Address [address] [facility] [place] [address] Care Team Providers Name Role Phone Clinic, [facility] Primary Care Provider [phone] Reason for Visit Reason Onset Date Comments Appointment 06/18/2018 Encounter Details Date Type Department Care Team Description 06/18/2018 Telephone [facility] Juan Delcid MD Appointment Clinic [place] [address] [place] [address] [place] [address] [phone] Social History Tobacco Use Types Packs/Day Years Used Date Smoking Tobacco: Former Smokeless Tobacco: Never Comments: quit 1985 Alcohol Use Standard Drinks/Week [...] only with Dr. Lewis on 07/01/18 in [place]. Pt had no further questions at this [...] on filedocumented in this encounter Care Teams Demolition Expert Relationship Specialty Start Date End Date Clinic, [facility] PCP - General 05/12/[address] [place] [phone] documented as of this encounter
--- OUTSIDE RECORDS SUMMARY | 2022-07-31 13:58 | XMS_ITS | Encounter Summary ---
:1940 Author Organization [place] Address [address] [facility] [facility] [place] [address] Care Team Providers Name Role Phone Clinic, [facility] Primary Care Provider [phone] Reason for Visit Auth/Cert Specialty Diagnoses / Procedures Referred By Contact Refer red To Contact Surgery Diagnoses DESCENDING THORACIC AORTIC ANEURYSM Sh Periop Services Procedures ENDOVASCULAR REPAIR ANEURYSM THORACIC AORTIC [address] [place] [address] Phone: Referral ID Status Reason Start Date Expiration Date Visits Requ ested Visits Authorized [id number] 1 1 Encounter Details Date Type Department Care Team Description 11/05/2018 Anesthesia Event [facility] Fela Conrad PeriOP Ser vices [facility] [address], [address] [facility]OLOGISTS [place] [address] [address] [phone] [place] [id number] (Wo rk) Anesthesia Record Procedure Summary Procedure Name Responsible Anesthesia Start Anesthesia Stop Anesthesiologist Time Time THORACIC ENDOVASCULAR Fela Conrad 11/05/18 0957 0 11/05/18 1244 ANEURYSM REPAIR WITH MEDTRONIC GRAFT (Abdomen) Events Date Time Event Comment 11/05/2018 0644 [...] with oral Ivon Aguilar airway; Ease of STEM SETTER SECURITIES SETTLEMENT PROCESSOR Intubation: Easy; Airway Size: 8; Cuffed; Oral; Blade Type: Glidescope; Blade Size: 4; Place by: Ryan [place]; Insertion Attempts: 1; Secured at (cm)to lip: 23 cm; Breath Sounds: Equal, clear and bilateral; End Tidal CO2: Present; Dentition: Intact, Unchanged; Grade View of Cords: 1; Airway Adjuncts: [place] scope Left Groin Interventional #1; 09/28/18; 1500 [...] - 11/05/2018 3:25 PM CST Patient: Speedy Henrdicks Procedure(s): THORACIC ENDOVASCULAR ANEURYSM REPAIR WITH MEDTRONIC [...] Fela Conrad November 05, 2018 3:25 PM OTAPE OPERATOR Anesthesia Procedure Notes - Fela Conrad - 11/05/2018 3:24 PM VIDEOTAPE OPERATOR Associated Order(s): Central line catheter placement [...] flushed: Yes Comments: Central Line No complications. OTAPE OPERATOR Anesthesia Procedure Notes - Fela Conrad - 11/05/2018 3:23 PM VIDEOTAPE OPERATOR Associated Order(s): A Line Catheter Placement ARTERIAL LINE PROCEDURE NOTE: Pre-Procedure Performed by Fela oCnrad Location: pre-op Pre-Anesthestic Checklist: patient identified, IV [...] waveform: Yes Comments: Arterial Line No complications OTAPE OPERATOR Anesthesia Preprocedure Evaluation - Fela Conrad [...] and alternatives discussed with: Patient.. Fela Conrad OTAPE OPERATOR documented in this encounter Miscellaneous Notes [...] APRN CRNA November 05, 2018 12:44 PM OTAPE OPERATOR documented in this encounter Plan of Treatment Not on filedocumented as of this encounter Procedures Procedure Name Priority Date/Time Associated Diagnosis Comme nts FV AN SC PA CENTRAL Routine 11/05/2018 3:24 PM VIDEOTAPE OPERATOR LINE CATHETER PROCEDURE Procedure Note - [...] LINE CATHETER PLACEMENT Routine 11/05/2018 3:23 PM VIDEOTAPE OPERATOR Procedure Note - Dariel Conrad - [...] clindamycin (CLEOCIN) infusion Given 11/05/2018 10:28 AM VIDEOTAPE OPERATOR 900 mg Routine, PRN, Starting on Thu11/05/18 at 1028, Anesthesia Intra-op dexamethasone (DECADRON) injection Given 11/05/2018 10:25 AM VIDEOTAPE OPERATOR 4 mg PRN, Administer over 1 Minutes, Starting on Thu11/05/18 at 1025, Anesthesia Intra-op ePHEDrine injection Given 11/05/2018 10:55 AM VIDEOTAPE OPERATOR 10 mg PRN, Starting on Thu11/05/18 at 1025, Anesthesia Intra-op Given 11/05/2018 10:38 AM VIDEOTAPE OPERATOR 5 mg Given 11/05/2018 10:25 AM VIDEOTAPE OPERATOR 5 mg fentaNYL (PF) (SUBLIMAZE) injection Given 11/05/2018 11:48 AM VIDEOTAPE OPERATOR 50 mcg PRN, Administer over 3-5 Minutes, Starting on Thu11/05/18 at 1010, Anesthesia Intra-op Given 11/05/2018 11:17 AM VIDEOTAPE OPERATOR 50 mcg Given 11/05/2018 10:10 AM VIDEOTAPE OPERATOR 100 mcg glycopyrrolate (ROBINUL) injection Given 11/05/2018 12:09 PM VIDEOTAPE OPERATOR 0.2 mg PRN, Administer over 1-2 Minutes, Starting on Thu11/05/18 at 1055, Anesthesia Intra-op Given 11/05/2018 12:07 PM VIDEOTAPE OPERATOR 0.4 mg Given 11/05/2018 10:55 AM VIDEOTAPE OPERATOR 0.2 mg heparin (porcine) injection Given 11/05/2018 10:59 AM VIDEOTAPE OPERATOR 7,000 Units PRN, Starting on Thu11/05/18 at 1059, Anesthesia Intra-op lactated ringers infusion New Bag 11/05/2018 7:30 AM VIDEOTAPE OPERATOR Intravenous, CONTINUOUS PRN, Anesthesia Intra-op, Starting on Thu11/05/18 at 0957, Until Thu11/05/18 at 1244 lactated ringers infusion New Bag 11/05/2018 9:57 AM VIDEOTAPE OPERATOR CONTINUOUS PRN, Anesthesia Intra-op, Starting on Thu11/05/18 at 0730, Until Thu11/05/18 at 1244 New Bag 11/05/2018 7:30 AM VIDEOTAPE OPERATOR lidocaine 2% injection (MDV) Given 11/05/2018 10:14 AM VIDEOTAPE OPERATOR 80 mg PRN, Starting on Thu11/05/18 at 1014, Anesthesia Intra-op neostigmine (PROSTIGMINE) injection Given 11/05/2018 12:09 PM VIDEOTAPE OPERATOR 2 mg Intravenous, PRN, Starting on Thu11/05/18 at 1207, Anesthesia Intra-op Given 11/05/2018 12:07 PM VIDEOTAPE OPERATOR 2 mg nitroGLYcerin 25 mg in D5W 250 mL infusi on Given 11/05/2018 12:39 PM VIDEOTAPE OPERATOR 10 mcg PRN, Starting on Thu11/05/18 at 1113, Anesthesia Intra-op Given 11/05/2018 12:38 PM VIDEOTAPE OPERATOR 15 mcg Given 11/05/2018 11:15 AM VIDEOTAPE OPERATOR 10 mcg ondansetron (ZOFRAN) injection Given 11/05/2018 12:07 PM VIDEOTAPE OPERATOR 4 mg PRN, Administer over 2-5 Minutes, Starting on Thu11/05/18 at 1207, Anesthesia Intra-op phenylephrine (CHRISTINE-SYNEPHRINE) injection Bolus 11/05/2018 11:23 AM VIDEOTAPE OPERATOR 50 mcg CONTINUOUS PRN, Starting on Thu11/05/18 at 1120, Anesthesia Intra-op New Bag 11/05/2018 11:20 AM VIDEOTAPE OPERATOR 50 mcg phenylephrine 0.2 mg/mL Restarted 11/05/2018 11:39 AM 0.2 mcg/kg/min 5.06 mL/hr (mcg/kg/min) drip VIDEOTAPE OPERATOR CONTINUOUS PRN, Starting on Thu11/05/18 at 1024, Anesthesia Intra-op Rate/Dose Change 11/05/2018 11:27 AM VIDEOTAPE OPERATOR 0.2 mcg/kg/min 5.06 mL/hr Restarted 11/05/2018 11:20 AM VIDEOTAPE OPERATOR 0.3 mcg/kg/min 7.59 mL/hr propofol (DIPRIVAN) injection 10 mg/mL v ial Given 11/05/2018 11:17 AM VIDEOTAPE OPERATOR 30 mg PRN, Starting on Thu11/05/18 at 1014, Anesthesia Intra-op Given 11/05/2018 10:14 AM VIDEOTAPE OPERATOR 170 mg rocuronium (ZEMURON) injection Given 11/05/2018 10:15 AM VIDEOTAPE OPERATOR 50 mg PRN, Starting on Thu11/05/18 at 1015, Anesthesia Intra-op sodium chloride 0.9% infusion New Bag 11/05/2018 9:57 AM VIDEOTAPE OPERATOR CONTINUOUS PRN, Anesthesia Intra-op, Starting on Thu11/05/18 at 0957, Until Thu11/05/18 at 1244 vecuronium (NORCURON) injection Given 11/05/2018 11:23 AM VIDEOTAPE OPERATOR 1 mg PRN, Starting on Thu11/05/18 at 1031, Anesthesia Intra-op Given 11/05/2018 10:31 AM VIDEOTAPE OPERATOR 2 mg documented in this encounter Additional Health Concerns Infection Onset Date Last Indicated Resolved Time MRSAComment: Positive 02/17/11 and 09/22/12 11/05/2018 019 Negatives 05/03/14 (HE), 12/01/14 (HE) documented as of this encounter Care Teams Flatwork Finisher Relationship Specialty Start Date End Date [facility], [facility] PCP - General 05/12/17 [address] [place] [address] documented as of this encounter
--- OUTSIDE RECORDS SUMMARY | 2022-07-31 13:58 | XMS_ITS | Encounter Summary ---
:1940 Author Organization [place] Address [address] [address] Care Team Providers Name Role Phone Clinic, [facility] Primary Care Provider [phone] Reason for Visit Auth/Cert Specialty Diagnoses / Procedures Referred By Contact Refer red To Contact Surgery Diagnoses ABDOMINAL AORTIC ANEURYSM Sh Periop Services Procedures ENDOVASCULAR REPAIR ANEURYSM ABDOMINAL AORTA [address] [place] [address] Phone: Referral ID Status Reason Start Date Expiration Date Visits Requ ested Visits Authorized [id number] 1 1 Encounter Details Date Type Department Care Team Description 09/28/2018 Anesthesia Event [facility] Marylou Asher MD [facility] [address] [place] [id number] [facility] Mattie Monahan, CAPITAL CAMPAIGN FUNDRAISER [facility] [address] [place] [id number] [address] [place] [address] Anesthesia Record Procedure Summary Procedure Name Responsible Anesthesia Start Anesthesia Stop Time Anesthesiologist Time BILATERAL FEMORAL Ling Asher MD 09/28/18 1252 09/28/18 1506 CUTDOWN WITH ANGIOGRAM (Abdomen) Events Date Time Event Comment 09/28/2018 1144 [...] Angela ts, Mattie Farrell, of Intubation: Easy; CAPITAL CAMPAIGN FUNDRAISER [facility] [place] CAPITAL CAMPAIGN FUNDRAISER [facility] [place] Airway Size: 8; Cuffed; Oral; Blade Type: Glidescope; Blade Size: 4; Place by: EA [facility] [place]; Insertion Attempts: 1; Secured at (cm)to lip: 23 cm; Breath Sounds: Equal, clear and bilateral; Dentition: Intact, Unchanged; Grade View of Cords: 1; Airway Adjuncts: [place] scope Urethral Catheter 09/28/18; 1315; No; 09/28/18 1315 by 09/28/18 1449 by Other (Comment) Georgette Umanzor, RN Georgette Umanzor, RN (surgeon ordered for the procedure); 16 fr Left Groin Interventional #1; 09/28/18; 1500 09/28/18 1500 by 0104 by Procedure Access (present prior to Rylee Muñiz, Inkatalina heaton, Nurse arrival to PACU); RN 08/09/21; [...] Asher MD September 28, 2018 3:11 PM BLISHMENT GUIDE Anesthesia Procedure Notes - Ling Asher MD - 09/28/2018 3:10 PM ESTABLISHMENT GUIDE Associated Order(s): A Line Catheter Placement ARTERIAL [...] Yes IBP within 10% of NIBP: Yes BLISHMENT GUIDE Anesthesia Preprocedure Evaluation - Ling Asher MD [...] alternatives discussed with: Patient.. Ling Asher MD BLISHMENT GUIDE documented in this encounter Miscellaneous Notes Anesthesia Care Transfer Note - Mattie Marmolejo APRN CRNA - 09/28/2018 3:06 PM CST Patient: Speedy Hendricks Procedure(s): BILATERAL FEMORAL CUTDOWN WITH ANGIOGRAM Diagnosis: ABDOMINAL AORTIC ANEURYSM Diagnosis Additional Information: No value filed. Anesthesia Type: General Note: Airway :Face Mask Patient transferred to:PACU Comments: JOSE CARLOSandoff Report: Identifed the Patient, Identified the Reponsible Provider, Reviewed thepertinent medical history, Discussed the surgical course, Reviewed Intra-OP anesthesia mangement andissues during anesthesia, Set expectations for post-procedure period and Allowed opportunity for questions and acknowledgement of understanding Vitals: (Last set prior to Anesthesia Care Transfer) TR[facility]ARK [facility] VITALS 09/28/2018 1428 - 09/28/2018 1506 09/28/2018 Resp Rate (set): 10 Electronically Signed By: Mattie Marmolejo APRN CRNA September 28, 2018 3:06 PM BLISHMENT GUIDE documented in this encounter Plan of Treatment Not on filedocumented as of this encounter Procedures Procedure Name Priority Date/Time Associated Diagnosis Comme nts ANE A LINE CATHETER Routine 09/28/2018 3:10 PM ESTABLISHMENT GUIDE PLACEMENT Procedure Note - Ritu Asher MD [...] (CLEOCIN) infusion 900 Given 09/28/2018 1:18 PM ESTABLISHMENT GUIDE 900 mg mg Routine, 900 mg, Intravenous, PRE-OP/PRE-PROCEDURE, Starting on Thu09/28/18 at 1101, For 1 dose, Give first dose within 1 hour PRIOR to incision., Indications: Perioperative Pharmacoprophylaxis, Pre-procedure dexmedetomidine (PRECEDEX) 4 mcg/mL bolu s Bolus 09/28/2018 2:19 PM ESTABLISHMENT GUIDE 8 mcg CONTINUOUS PRN, Starting on Thu09/28/18 at 1216, Anesthesia Intra-op Bolus 09/28/2018 1:12 PM ESTABLISHMENT GUIDE 12 mcg Bolus 09/28/2018 1:02 PM ESTABLISHMENT GUIDE 8 mcg ePHEDrine injection Given 09/28/2018 1:57 PM ESTABLISHMENT GUIDE 5 mg PRN, Starting on Thu09/28/18 at 1345, Anesthesia Intra-op Given 09/28/2018 1:49 PM ESTABLISHMENT GUIDE 5 mg Given 09/28/2018 1:45 PM ESTABLISHMENT GUIDE 5 mg fentaNYL (PF) (SUBLIMAZE) injection Given 09/28/2018 1:34 PM ESTABLISHMENT GUIDE 50 mcg PRN, Administer over 3-5 Minutes, Starting on Thu09/28/18 at 1302, Anesthesia Intra-op Given 09/28/2018 1:02 PM ESTABLISHMENT GUIDE 50 mcg lactated ringers infusion New Bag 09/28/2018 1:11 PM ESTABLISHMENT GUIDE CONTINUOUS PRN, Anesthesia Intra-op, Starting on Thu09/28/18 at 1311, Until Thu09/28/18 at 1506 lidocaine 2% injection (MDV) Given 09/28/2018 1:02 PM ESTABLISHMENT GUIDE 100 mg PRN, Starting on Thu09/28/18 at 1302, Anesthesia Intra-op phenylephrine 0.2 mg/mL Rate/Dose Change 09/28/2018 2:17 0.1 mcg/kg /min 2.54 mL/hr (mcg/kg/min) drip PM ESTABLISHMENT GUIDE CONTINUOUS PRN, Starting on Thu09/28/18 at 1406, Anesthesia Intra-op Rate/Dose Change 09/28/2018 2:12 PM ESTABLISHMENT GUIDE 0.15 mcg/kg/min 3.82 mL/hr New Bag 09/28/2018 2:06 PM ESTABLISHMENT GUIDE 0.25 mcg/kg/min 6.36 mL/hr propofol (DIPRIVAN) infusion New Bag 09/28/2018 1:11 PM 35 mcg/kg/min 17.8 mL/hr Intravenous, CONTINUOUS PRN, ESTABLISHMENT GUIDE Starting on Thu09/28/18 at 1311, Anesthesia Intra-op propofol (DIPRIVAN) injection 10 mg/mL v ial Given 09/28/2018 1:02 PM ESTABLISHMENT GUIDE 200 mg PRN, Starting on Thu09/28/18 at 1302, Anesthesia Intra-op rocuronium (ZEMURON) injection Given 09/28/2018 1:02 PM ESTABLISHMENT GUIDE 50 mg PRN, Starting on Thu09/28/18 at 1302, Anesthesia Intra-op vecuronium (NORCURON) injection Given 09/28/2018 2:17 PM ESTABLISHMENT GUIDE 2 mg PRN, Starting on Thu09/28/18 at 1334, Anesthesia Intra-op Given 09/28/2018 1:34 PM ESTABLISHMENT GUIDE 2 mg documented in this encounter Care Teams Warm In Relationship Specialty Start Date End Date [facility], [facility] - General 05/12/17 [address] [place] [address] documented as of this encounter
--- OUTSIDE RECORDS SUMMARY | 2022-07-31 13:58 | XMS_ITS | Encounter Summary ---
:1940 Author Organization [place] Address [address] [facility] [place] [address] Care Team Providers Name Role Phone Clinic, [facility] Primary Care Provider [phone] Reason for Visit Auth/Cert Specialty Diagnoses / Procedures Referred By Contact Refer red To Contact Surgery Diagnoses DESCENDING THORACIC AORTIC ANEURYSM Sh Periop Services Procedures ENDOVASCULAR REPAIR ANEURYSM THORACIC AORTIC [address], [address] [place] [address] Phone: Referral ID Status Reason Start Date Expiration Date Visits Requ ested Visits Authorized [id number] 1 1 Encounter Details Date Type Department Care Team Description 11/03/2018 Hospital Encounter [facility] Juan Lewis En counter for [facility] MD Elijah pre-operative [address] laboratory testing [place] [address] [address] [place] [id number] Social History Tobacco Use Types Packs/Day Years [...] AM Encounter for Resul ts for this RAIL OPERATOR pre-operative procedure are in laboratory testing the resul ts section. BLOOD COMPONENT Routine 11/03/2018 9:10 AM Encounter for Resul ts for this RAIL OPERATOR pre-operative procedure are in laboratory testing the resul ts section. BLOOD COMPONENT Routine 11/03/2018 9:10 AM Encounter for Resul ts for this RAIL OPERATOR pre-operative procedure are in laboratory testing the resul ts section. BLOOD COMPONENT Routine 11/03/2018 9:10 AM Encounter for Resul ts for this RAIL OPERATOR pre-operative procedure are in laboratory testing the resul ts section. ABO/RH TYPE AND Routine 11/03/2018 9:10 AM Encounter for Resul ts for this SCREEN RAIL OPERATOR pre-operative procedure are in laboratory testing the resul ts section. documented in this encounter Results Blood component (11/03/2018 9:10 AM RAIL OPERATOR) [facility] Method Time Signature Unit Number [id number] 11/05/2018 [facility] 7:55 AM [facility] Blood Red Blood Cells 11/05/2018 [facility] Component LeukoReduced 7:55 AM [facility] Division 00 11/05/2018 [facility] Number 7:55 AM [facility] Status of No longer 11/07/2018 [facility] Unit available 3:00 AM [facility] 11/07/2018 [address] [facility] Blood Product [id number] 11/05/2018 [facility] Code 7:55 AM [facility] Unit Status [facility] Specimen Anatomical Collection Method Collection Time Receive d Time (Source) Location / / Volume Laterality 11/03/2018 9:10 AM 9 9:19 RAIL OPERATOR AM RAIL OPERATOR Juan Lewis MD LABORATORY Performing Organization Address City/State/ZIP Code Phon e Number M [place] [address], [place] [address] [facility] [address] [place] [address], [facility] [address] [place], [place] [address], [facility] [phone] Blood component (11/03/2018 9:10 AM RAIL OPERATOR) [employer] Method Time Signature Unit Number [id number] 11/05/2018 [facility] 7:55 AM [facility] Blood Red Blood 11/05/2018 [facility] Component Cells 7:55 AM [facility] Reduced Division 00 11/05/2018 [facility] Number 7:55 AM [facility] Status of No longer 11/07/2018 [facility] Unit available 3:00 AM [facility] 11/07/2018 [facility] 0300 Blood Product [id number] 11/05/2018 [facility] Code 7:55 AM [facility] Unit Status [facility] Specimen Anatomical Collection Method Collection Time Receive d Time (Source) Location / / Volume Laterality 11/03/2018 9:10 AM 9 9:19 RAIL OPERATOR AM RAIL OPERATOR Juan Lewis MD LABORATORY Performing Organization Address City/State/ZIP Code Phon e Number M [facility] [address], [place] [address] [facility] [address] [place] [address], [facility] [address], [place] [address], [facility] [phone] Blood component (11/03/2018 9:10 AM RAIL OPERATOR) [facility] Method Time Signature Unit Number [id number] 11/03/2018 [facility] 10:39 AM [facility] Blood Red Blood 11/03/2018 [facility] Component Cells 10:39 AM [facility] Reduced Division 00 11/03/2018 [facility] Number 10:39 AM [facility] Status of No longer 11/07/2018 [facility] Unit available 3:00 AM [facility] 11/07/2018 [facility]OSPITAL 0300 Blood Product [id number] 11/03/2018 [facility] Code 10:39 AM [facility] Unit Status [facility] Specimen Anatomical Collection Method Collection Time Receive d Time (Source) Location / / Volume Laterality 11/03/2018 9:10 AM 9 9:19 RAIL OPERATOR AM RAIL OPERATOR Juan Lewis MD LABORATORY Performing Organization Address City/State/ZIP Code Phon e Number M [facility] [address], [place] [address] [facility] [address] [place] [address], [facility] [phone] [address], [facility] [phone] Blood component (11/03/2018 9:10 AM RAIL OPERATOR) [facility] Method Time Signature Unit Number [id number] 11/03/2018 [facility] 10:39 AM [facility] Blood Red Blood 11/03/2018 [facility] Component Cells 10:39 AM [facility] Leukocyte HOSPITAL Reduced Division 00 11/03/2018 [facility] Number 10:39 AM [facility] Status of No longer 11/07/2018 [facility] Unit available 3:00 AM [facility] 11/07/2018 [facility]OSPITAL 0300 Blood Product [id number] 11/03/2018 [facility] Code 10:39 AM [facility] Unit Status [facility] Specimen Anatomical Collection Method Collection Time Receive d Time (Source) Location / / Volume Laterality 11/03/2018 9:10 AM 9 9:19 RAIL OPERATOR AM RAIL OPERATOR Juan Lewis MD LABORATORY Performing Organization Address City/State/ZIP Code Phon e Number [place] [address] [place] [phone] [place] [address] [place], [place] [phone] [place] [address], [facility] [phone] (ABNORMAL) ABO/Rh type and screen (11/03/2018 9:10 AM RAIL OPERATOR) [facility] Signature Units Ordered 4 11/05/2018 [facility] 1:30 PM [facility] ABO O 11/03/2018 [facility] 10:15 AM [facility] RH(D) Pos [facility] Antibody Pos (A) 11/03/2018 [facility] Screen 10:15 AM [facility] Test Valid [place] 11/03/2018 [facility] Only At [facility] 9:31 AM [facility] Specimen 11/06/2018 11/03/2018 [facility] Expires 9:31 AM [facility] Crossmatch Red Blood 11/03/2018 [facility] Cells 9:31 AM RAIL OPERATOR [facility] Specimen Anatomical Collection Method Collection Time Receive d Time (Source) Location / / Volume Laterality Blood specimen 11/03/2018 9:10 AM 019 9:19 (specimen) RAIL OPERATOR AM RAIL OPERATOR Juan Lewis MD LAB - BLOOD BANK TEST ORDER Performing Organization Address City/State/ZIP Code Phon e Number M [facility] [address] [place] [phone] [facility] [address] [place] [address], [facility] [phone] documented in this encounter Visit Diagnoses Diagnosis Encounter for pre-operative laboratory t esting Preoperative examination, unspecified documented in this encounter Care Teams Set Up Inspector Relationship Specialty Start Date End Date [facility], [facility] PCP - General 05/12/[address] [place] [address] documented as of this encounter
--- OUTSIDE RECORDS SUMMARY | 2022-07-31 13:58 | XMS_ITS | Encounter Summary ---
:1940 Author Organization [place] Address [address] [facility] [place] [address] Care Team Providers Name Role Phone [facility], [facility] Primary Care Provider [phone] Reason for Referral Diagnostic Imaging CT Scan - Closed Specialty Diagnoses / Procedures Referred By Contact Refer red To Contact Diagnoses Abdominal aortic aneurysm Juan Lewis MD Procedures CTA Abdomen Pelvis with Contrast [address] [place] [address] Referral ID Status Reason Start Date Expiration Date Visits Requ ested Visits Authorized [id number] Closed 06/03/2018 06/03/2019 1 1 Reason for Visit Diagnostic Imaging CT Scan - Closed Specialty Diagnoses / Procedures Referred By Contact Refer red To Contact Diagnoses Abdominal aortic aneurysm Juan Lewis MD Procedures CTA Abdomen Pelvis with Contrast [address] [place] [address] Referral ID Status Reason Start Date Expiration Date Visits Requ ested Visits Authorized [id number] Closed 06/03/2018 06/03/2019 1 1 Encounter Details Date Type Department Care Team Description 06/07/2018 Hospital Encounter [facility] Juan Lewis Ab dominal aortic [facility] MD Elijah aneurysm (H) [address] [place] [address] [id number] [place] [address] [phone] Social History Tobacco Use Types Packs/Day Years Used Date Smoking Tobacco: Former Smokeless Tobacco: Never Comments: quit 1984 Alcohol [...] PM 8 4:23 CDT PM CDT Juan YUAN - CAROLYN POCT Performing Organization [...] 77 mLs Intravenous, 100 mL, ONCE, On 06/07/18 at 1645, For 1 dose iopamidol (ISOVUE-370) solution 500 mL Given 06/07/2018 4:38 PM CDT 60 mLs 500 mL, Intravenous, ONCE, On Thu06/07/18 at 1645, For 1 dose documented in this encounter Care Teams Alterations Sewer Relationship Specialty Start Date End Date [facility] [place] PCP - General 05/12/[address] [place] [id number] documented as of this encounter
--- OUTSIDE RECORDS SUMMARY | 2022-07-31 13:58 | XMS_ITS | Encounter Summary ---
:1940 Author Organization [place] Address [address] [place] [address] Care Team Providers Name Role Phone [facility], [facility] Primary Care Provider [phone] Encounter Details Date Type Department Care Team Description 07/30/2018 Telephone [facility] Juan Delcid MD [facility] [place] [address] [place] [address] [place] [address] [phone] Social History Tobacco Use Types Packs/Day Years [...] AAA WITH [employer] Location of surgery: [facility] Date and time of surgery: 09/28/18 @ 12:30pm Surgeon: DR. VÁSQUEZ AND DR. ALANIZ Pre-Op Appt Date: PT TO SCHEDULE AT [facility] Post-Op Appt Date: PT TO SCHEDULE Packet sent out: YES ON 09/02/18 Pre-cert/Authorization completed: Yes Date: 09/14/18 [employer] Telephone Encounter - Aruna Simmons - 07/30/2018 4:00 PM CDT Daughter Raquel called to schedule her dad's surgery in September. I took note of the dates they would like. I am waiting on the schedule for the Interventional Radiologist that Dr. Vásquez requested. Raquel understands I will follow up with her next week. .Aruna Simmons, Assembly Member documented in this encounter Plan of Treatment Not on filedocumented as of this encounter Visit Diagnoses Not on filedocumented in this encounter Care Teams Clinical Research Coordinator Relationship Specialty Start Date End Date [facility], [facility] PCP - General 05/12/[address] [place] [id number] documented as of this encounter
--- OUTSIDE RECORDS SUMMARY | 2022-07-31 13:58 | XMS_ITS | Encounter Summary ---
:1940 Author Organization [place] Address [address] [facility] [place] [address] Care Team Providers Name Role Phone [facility], [facility] Primary Care Provider [phone] Reason for Visit Reason Onset Date Comments Referral 05/21/2018 Encounter Details Date Type Department Care Team Description 05/21/2018 Telephone [facility] Cindy Taylor, customer experience associate [place] [address] [facility] [address] [place] [address] Social History Tobacco Use Types Packs/Day [...] with Dr. Lewis. Telephone Encounter - Cindy Taylor RN - 05/21/2018 4:03 PM CDT Pt referred to [facility] via fax by Marija Ramirez MD for known AAA increased in size to 4.4X4.6 cm- pt has known about AAA for past 55 years and has monitored it with annual US. US done on 05/17/18 in care everywhere from [facility]. Pt needs to be scheduled for consult with Dr. Lewis. Will route to scheduling to coordinate an appointment within the next week. SHASTA Chand, RN documented in this encounter Plan of Treatment Not on filedocumented as of this encounter Visit Diagnoses Not on filedocumented in this encounter Care Teams Sulky Driver Relationship Specialty Start Date End Date Clinic, [facility] PCP - General 05/12/[address] [place] [address] documented as of this encounter
--- OUTSIDE RECORDS SUMMARY | 2022-07-31 13:58 | XMS_ITS | Encounter Summary ---
:1940 Author Organization [place] Address [address] [place] [address] Care Team Providers Name Role Phone [facility], [facility] Primary Care Provider [phone] Reason for Visit Auth/Cert Specialty Diagnoses / Procedures Referred By Contact Refer red To Contact Surgery Diagnoses ABDOMINAL AORTIC ANEURYSM Sh Periop Services Procedures ENDOVASCULAR REPAIR ANEURYSM ABDOMINAL AORTA [address], [address] [place] [address] Phone: Referral ID Status Reason Start Date Expiration Date Visits Requ ested Visits Authorized [id number] 1 1 Encounter Details Date Type Department Care Team Description 09/28/2018 Surgery [facility] Juan Vásquez FEMORAL [place] PeriOP MD Elijah CUTDOWN WITH ANGIOGRAM Services [address] [place] [address] [place] [address] [phone] Surgery Details Date/Time Status Location OR Service [...] Comments Blood Pressure 146/79 09/28/2018 3:00 PM PROFILE MILL OPERATOR TAPE CONTROL Pulse 60 09/28/2018 11:21 AM PROFILE MILL OPERATOR TAPE CONTROL Temperature 36.5 ??C (97.7 ??F) 09/28/2018 3:00 PM PROFILE MILL OPERATOR TAPE CONTROL Respiratory Rate 9 09/28/2018 3:50 PM PROFILE MILL OPERATOR TAPE CONTROL Oxygen Saturation 94% 09/28/2018 3:50 PM PROFILE MILL OPERATOR TAPE CONTROL Inhaled Oxygen Concentration - - Weight 84.8 kg (187 lb) 09/28/2018 11:21 AM PROFILE MILL OPERATOR TAPE CONTROL Height 170.2 cm (5' 7) 09/28/2018 11:21 AM PROFILE MILL OPERATOR TAPE CONTROL Body Mass Index 29.41 09/28/2018 11:21 AM PROFILE MILL OPERATOR TAPE CONTROL documented in this encounter Discharge Summaries Juan [...] MD MT: RIO Name: SPEEDY MCDUFFIE Account: [id number] : 1940 Admit Date: 09/28/2018 Discharge Date: 09/29/2018 Document: [id number] cc: Primary ILE MILL OPERATOR TAPE CONTROL documented in this encounter Medications at Time [...] Levi MD - 09/29/2018 9:32 AM CST [facility] Vascular Medicine Progress Note Date [...] aorta. Exchange was made for a 6 Prydeinig vascular sheath. 18-gauge singlewall needle was then advanced into the left common femoral artery through which a 0.035 inch Bentson wire was advanced in the abdominal aorta. Exchange is made for a 6 Prydeinig vascular sheath. Via the left groin access, a 5 Prydeinig pigtail catheter was advanced over the Bentson wire into the abdominal aorta. Via the right groin, a 5 Prydeinig pigtail catheter was advanced over the Bentson [...] concerns during business hours M-F, call the [facility] at [phone] to have the rounding/non linear editor Vascular Medicine (NOT VASCULAR SURGERY) MD paged. - After business hours M-F,??for medical concerns on this patient, please page hospitalist staff. - For vascular surgical questions, please page the appropriate surgeon (primary vascular surgeon or non linear editor vascular surgeon) based upon the time of day. Lambert Fontanez PA-C Zoltan Londono MD - 09/29/2018 8:19 AM CST [facility] Vascular Surgery Progress Note Assessment [...] concerns during business hours M-F, call the [facility] at [phone] to have the rounding/non linear editor Vascular Medicine (NOT VASCULAR SURGERY) MD paged. - After business hours M-F,??for medical concerns on this patient, please page hospitalist staff. - For vascular surgical questions, please page the appropriate surgeon (primary vascular surgeon or non linear editor vascular surgeon) based upon the time of day. Brandie Barrera PA-C Michelle Jones - 09/28/2018 10:42 AM CST Admission medication history interview status for the 09/28/2018 admission is complete. See [facility] admission navigator for prior to admission medications Medication history source reliability:Good Medication history interview source(s):Patient Medication history resources (including written lists, pill bottles, clinic record):Patient mailed in his medication list prior to surgery Primary pharmacy.[facility] Additional medication history information not noted on CASEWORK MANAGER med list :None Time spent in this [...] HS Yes Unknown, Entered By History ILE MILL OPERATOR TAPE CONTROL documented in this encounter Procedure Notes Jacqui [...] for procedural details. Provider name: Jacqui Odom Pulp Drier(s):None ILE MILL OPERATOR TAPE CONTROL documented in this encounter Consult Notes Carrie [...] 1978. 2. Cervical fusion, Dr. Donahue at [facility] 02/18/2006. 3. Hardware removal and matrixectomy, right great toe, 09/30/2012. 4. Lumbar fusion 10/1996, L5-S1. 5. Lumbar fusion 1999, L4. 6. 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 7. Laparoscopic appendectomy, 01/2009. SOCIAL HISTORY: The patient is . He has 2 children. 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 He quit smoking [id number] after a 1/4 pack per day use [...] MD MT: JACKSON Name: SPEEDY MCDUFFIE Account: [id number] : 1940 Consult Date: 09/28/2018 Document: [id number] ILE MILL OPERATOR TAPE CONTROL documented in this encounter Miscellaneous Notes Op [...] MD MT: JACKSON Name: SPEEDY MCDUFFIE Account: [id number] : 1940 Procedure Date: 09/28/2018 Document: [id number] ILE MILL OPERATOR TAPE CONTROL Plan of Care - Griselda Dinero RN [...] continue to follow up with this. ILE MILL OPERATOR TAPE CONTROL Provider Notification - Levi Hollingsworth MD - 09/29/2018 12:46 AM PROFILE MILL OPERATOR TAPE CONTROL Brief update: Paged re: request for home melatonin 10 mg melatonin HS PRN added. Levi Hollingsworth MD 12:47 AM ILE MILL OPERATOR TAPE CONTROL Plan of Care - Ira South RN - 09/28/2018 11:11 PM CST A&O, VSS, Lung sounds clear, Bowel sounds active,adeqaute urine output, incision right & letgroin CDI Ambulates assist 1, Regular diet, tolerating liquids with poor appetite. Pain controlled by scheduled tylenol and PRN oxycodone. ILE MILL OPERATOR TAPE CONTROL Plan of Care - Vandana Smith RN - 09/28/2018 7:22 PM CST Pt is came from PACU.Groin site dressing clean dry and intact.Not void yet.Ice pack given.IVF running .will monitor. ILE MILL OPERATOR TAPE CONTROL documented in this encounter Plan of Treatment Not on filedocumented as of this encounter Procedures Procedure Name Priority Date/Time Associated Comments Diagnosis CTA CHEST WITH Routine 09/29/2018 11:38 Results f or this CONTRAST AM PROFILE MILL OPERATOR TAPE CONTROL procedure are i n the results section. BASIC METABOLIC PANEL Timed 09/29/2018 10:06 AAA (abdominal Results for this AM PROFILE MILL OPERATOR TAPE CONTROL aortic aneurysm) procedure a re in (H) the results section. GLUCOSE BY METER Routine 09/29/2018 6:00 AM AAA (abdominal Res ults for this PROFILE MILL OPERATOR TAPE CONTROL aortic aneurysm) procedure a re in (H) the results section. ANGIOGRAM Routine 09/28/2018 2:39 PM PROFILE MILL OPERATOR TAPE CONTROL IR ABDOMINAL Routine 09/28/2018 2:17 PM AAA (abdominal Results for this ENDOVASCULAR STENT PROFILE MILL OPERATOR TAPE CONTROL aortic aneurysm) proce dure are in GRAFT (H) the results section. EKG 12-LEAD, TRACING STAT 09/28/2018 11:42 Res ults for this ONLY AM PROFILE MILL OPERATOR TAPE CONTROL procedure are i n the results section. XR CHEST 1 VIEW STAT 09/28/2018 11:21 Results for this AM PROFILE MILL OPERATOR TAPE CONTROL procedure are i n the results section. BLOOD COMPONENT Routine 09/28/2018 11:11 AAA (abdominal Result s for this AM PROFILE MILL OPERATOR TAPE CONTROL aortic aneurysm) procedure a re in (H) the results section. BLOOD COMPONENT Routine 09/28/2018 11:11 AAA (abdominal Result s for this AM PROFILE MILL OPERATOR TAPE CONTROL aortic aneurysm) procedure a re in (H) the results section. POTASSIUM STAT 09/28/2018 11:11 AAA (abdominal Results f or this AM PROFILE MILL OPERATOR TAPE CONTROL aortic aneurysm) procedure a re in (H) the results section. LIPID PROFILE STAT 09/28/2018 11:11 AAA (abdominal Results for this AM PROFILE MILL OPERATOR TAPE CONTROL aortic aneurysm) procedure a re in (H) the results section. HEMOGLOBIN A1C STAT 09/28/2018 11:11 AAA (abdominal Results for this AM PROFILE MILL OPERATOR TAPE CONTROL aortic aneurysm) procedure a re in (H) the results section. CREATININE STAT 09/28/2018 11:11 AAA (abdominal Results f or this AM PROFILE MILL OPERATOR TAPE CONTROL aortic aneurysm) procedure a re in (H) the results section. ABO/RH TYPE AND STAT 09/28/2018 11:11 AAA (abdominal Result s for this SCREEN AM PROFILE MILL OPERATOR TAPE CONTROL aortic aneurysm) procedure a re in (H) the results section. LAB RESULT - HIM SCAN 09/24/2018 12:00 AM PROFILE MILL OPERATOR TAPE CONTROL EKG CARDIAC - HIM 09/24/2018 12:00 SCAN AM PROFILE MILL OPERATOR TAPE CONTROL documented in this encounter Results CTA Chest with Contrast (09/29/2018 11:38 AM PROFILE MILL OPERATOR TAPE CONTROL) Anatomical Region Laterality Modality Chest, SUBRAD IR PROCEDURE, UMP CT CTA, RAD CT Computed Tomography Specimen (Source) Anatomical Location Collection Method / Collectio n Time Received Time / Laterality Volume Impressions 09/29/2018 4:30 PM PROFILE MILL OPERATOR TAPE CONTROL IMPRESSION: Tortuous descending thoracic aorta with bilobed aneurysmal dilatation measuring up to 50 mm in diameter in the distal descending aorta. JACQUI ODOM MD Narrative 09/29/2018 4:30 PM PROFILE MILL OPERATOR TAPE CONTROL PROCEDURE: CTA of the chest DATE OF [...] are unremarkable. No hydronephrosis. Procedure Note Jacqui Oodm MD - 09/29/2018For matting of this note [...] ORDERABLES Basic metabolic panel (09/29/2018 10:06 AM PROFILE MILL OPERATOR TAPE CONTROL) [facility] Time Signature Sodium 141 133 - 144 09/29/2018 [facility] mmol/L 10:31 AM [facility] Potassium 4.5 3.4 - 5.3 09/29/2018 [facility] mmol/L 10:31 AM [facility] Chloride 109 94 - 109 09/29/2018 [facility] mmol/L 10:31 AM [facility] Carbon Dioxide 25 20 - 32 09/29/2018 [facility] mmol/L 10:31 AM [facility] Anion Gap 7 3 - 14 09/29/2018 [facility] mmol/L 10:31 AM [facility] Glucose 97 70 - 99 09/29/2018 [facility] mg/dL 10:31 AM [facility] Urea Nitrogen 18 7 - 30 09/29/2018 [facility] mg/dL 10:31 AM [facility] Creatinine 1.25 0.66 - 09/29/2018 [facility] 1.25 10:31 AM [facility] GFR Estimate Not Calculated >60 09/29/2018 [facility] mL/min/1. 10:[address] GFR Estimate Not Calculated >60 09/29/2018 [facility] If Black mL/min/1. 10:[address] Calcium 8.8 8.5 - 09/29/2018 [facility] 10.1 10:31 AM [facility] mg/dL HOSPITAL Specimen Anatomical Collection Method Collection Time Receive d Time (Source) Location / / Volume Laterality Blood specimen 09/29/2018 10:06 8 (specimen) AM PROFILE MILL OPERATOR TAPE CONTROL 10:07 AM PROFILE MILL OPERATOR TAPE CONTROL Pam Conde PA-C LAB - BLOOD ORDERABLES Performing Organization Address City/State/ZIP Code Phon e Number M [facility] [address] [place] [address] [phone] [facility] [address] [place] [address], [facility] [phone] (ABNORMAL) Glucose by meter (09/29/2018 6:00 AM PROFILE MILL OPERATOR TAPE CONTROL) P athologist Signature Glucose 109 (H) 70 - 99 09/29/2018 [facility] mg/dL 6:18 AM PROFILE MILL OPERATOR TAPE CONTROL TEST, GLUCOSE Specimen Anatomical Collection Method Collection Time Receive d Time (Source) Location / / Volume Laterality 09/29/2018 6:00 AM 8 6:18 PROFILE MILL OPERATOR TAPE CONTROL AM PROFILE MILL OPERATOR TAPE CONTROL Juan Vásquez MD LAB - BEAKER POCT Performing Organization Address City/State/ZIP Code Phon e Number [facility] POINT OF CARE TEST, GLUCOSE POINT OF CARE TEST, GLUCOSE IR Abdominal Endovascular Stent Graft (09/28/2018 2:17 PM PROFILE MILL OPERATOR TAPE CONTROL) Anatomical Region Laterality Modality Abdomen/Pelvis Radio Fluoroscopy Specimen (Source) Anatomical Location Collection Method / Collectio n Time Received Time / Laterality Volume Impressions 09/29/2018 8:52 AM PROFILE MILL OPERATOR TAPE CONTROL Impression: 1. Thoracic and abdominal angiography de monstrating previously unknown thoracic aortic aneurysm as well as the known abdominal aortic aneurysm 2. Endovascular aneurysm repair was abor clover to allow for further investigation of the thoracic aortic ane urysm and future surgical planning. JACQUI ODOM MD Narrative 09/29/2018 8:52 AM PROFILE MILL OPERATOR TAPE CONTROL PROCEDURE(S): 1. Thoracic and abdominal aortic angiogr [...] aneurysm repair. A timeout was performed per [facility] protocol policy to confirm the [...] aorta. Exchange was made for a 6 Prydeinig vascula r sheath. 18-gauge singlewall needle was then advanced into the left c ommon femoral artery through which a 0.035 inch Bentson wire was adva nced in the abdominal aorta. Exchange is made for a 6 Prydeinig vascular sheath. Via the left groin access, a 5 Prydeinig pigtail catheter was advanced over the Bentson wire into the abdominal aorta. Via the right groin, a 5 Prydeinig pigtail catheter was advanced over the Bentson [...] aneurysm repair. A timeout was performed per [facility] rsal protocol policy to confirm the correct patient, site and pr ocedure to be performed. Please note that due to the complex natu re of the procedure, a multi-disciplinary approach was used [facility] involved Mili Vásquez and Lei functioning as co-surgeons for t his procedure. Bilateral common femoral arteries were s urgically exposed, see separate operative report for details. A n 18-gauge singlewall needle was then inserted into the right common femoral artery through which a 0.035 inch Bentson wire was advanced int o the abdominal aorta. Exchange was made for a 6 Prydeinig vascula r sheath. 18-gauge singlewall needle was then advanced into the left c ommon femoral artery through which a 0.035 inch Bentson wire was adva nced in the abdominal aorta. Exchange is made for a 6 Prydeinig vascular sheath. Via the left groin access, a 5 Prydeinig pigtail catheter was advanced over the Bentson wire into the abdominal aorta. Via the right groin, a 5 Prydeinig pigtail catheter was advanced over the Bentson [...] EKG 12-lead, tracing only (09/28/2018 11:42 AM PROFILE MILL OPERATOR TAPE CONTROL) [facility] Method Time Signature Interpretation ECG Click View RADIOLOGY Image link RESULTS to view waveform and result Specimen (Source) Anatomical Collection Method Collection Time Re ceived Time Location / / Volume Laterality 09/28/2018 11:42 AM PROFILE MILL OPERATOR TAPE CONTROL Juan Vásquez MD ECG ORDERABLES Performing Organization Address City/State/ZIP Code Phon e Number RADIOLOGY RESULTS XR Chest 1 View (09/28/2018 11:21 AM PROFILE MILL OPERATOR TAPE CONTROL) Anatomical Region Laterality Modality Chest Digital Radiography Specimen (Source) Anatomical Location Collection Method / Collectio n Time Received Time / Laterality Volume Impressions 09/28/2018 1:09 PM PROFILE MILL OPERATOR TAPE CONTROL IMPRESSION: Heart size similar to prior. The thoracic aorta is elongated. No airspace consolidation or pneumothorax. There appears to be a small right pleural effusion. ELAINA HUNTLEY MD Narrative 09/28/2018 1:09 PM PROFILE MILL OPERATOR TAPE CONTROL CHEST ONE VIEW ??09/28/2018 11:21 AM HISTORY: [...] ORDER BRAYDEN Blood component (09/28/2018 11:11 AM PROFILE MILL OPERATOR TAPE CONTROL) [facility] Method Time Signature Unit Number [id number] 09/28/2018 [facility] 1:21 PM [facility] Blood Red Blood 09/28/2018 [facility] Component Cells 1:21 PM [facility] Reduced Division 00 09/28/2018 [facility] Number 1:21 PM [facility] Status of No longer 10/02/2018 [facility] Unit available 3:00 AM [facility] 10/02/2018 HOSPITAL 0300 Blood Product [id number] 09/28/2018 [facility] Code 1:21 PM [facility] Unit Status [facility] Specimen Anatomical Collection Method Collection Time Receive d Time (Source) Location / / Volume Laterality 09/28/2018 11:11 09/28/2018 AM PROFILE MILL OPERATOR TAPE CONTROL 11:44 AM PROFILE MILL OPERATOR TAPE CONTROL Juan Vásquez MD LABORATORY Performing Organization Address City/State/ZIP Code Phon e Number M [facility] [address] [place], [place] [address] [facility] [address] [place] [address], [facility] [phone] [facility] [address] [place] [address], [facility] [phone] Blood component (09/28/2018 11:11 AM PROFILE MILL OPERATOR TAPE CONTROL) Patholo gist Method Time Signature Unit Number [id number] 09/28/2018 [facility] 1:21 PM PROFILE MILL OPERATOR TAPE CONTROL [facility] Blood Red Blood 09/28/2018 [facility] Component Cells 1:21 PM PROFILE MILL OPERATOR TAPE CONTROL [facility] Reduced Division 00 09/28/2018 [facility] Number 1:21 PM [facility] Status of No longer 10/02/2018 [facility] Unit available 3:00 AM [facility] 10/02/2018 HOSPITAL 0300 Blood Product [id number] 09/28/2018 [facility] Code 1:21 PM [facility] Unit Status [facility] Specimen Anatomical Collection Method Collection Time Receive d Time (Source) Location / / Volume Laterality 09/28/2018 11:11 09/28/2018 AM PROFILE MILL OPERATOR TAPE CONTROL 11:44 AM PROFILE MILL OPERATOR TAPE CONTROL Juan Vásquez MD LABORATORY Performing Organization Address City/State/ZIP Code Phon e Number M [facility] [address] [place], [place] [address] [facility] [address] [place] [address], [facility] [phone] [facility] [address] [place], [place] [address], [facility] [phone] Potassium (09/28/2018 11:11 AM PROFILE MILL OPERATOR TAPE CONTROL) P athologist Signature Potassium 4.0 3.4 - 5.3 09/28/2018 [facility] mmol/L 12:22 PM PROFILE MILL OPERATOR TAPE CONTROL [facility] Specimen Anatomical Collection Method Collection Time Receive d Time (Source) Location / / Volume Laterality Blood specimen 09/28/2018 11:11 8 (specimen) AM PROFILE MILL OPERATOR TAPE CONTROL 11:43 AM PROFILE MILL OPERATOR TAPE CONTROL Ramiro Card MD LAB - BLOOD ORDERABLES Performing Organization Address City/State/ZIP Code Phon e Number M [facility] [address] [place] [address] [facility] [address] [place] [address], [place] [phone] Lipid panel (09/28/2018 11:11 AM PROFILE MILL OPERATOR TAPE CONTROL) Analysis Performed At [facility] logist Time Signature Cholesterol 143 <200 mg/dL 09/28/2018 [facility] 12:22 PM [facility] Triglycerides 115 <150 mg/dL 09/28/2018 [facility] 12:24 PM [facility] HDL Cholesterol 68 >39 mg/dL 09/28/2018 [facility] 12:24 PM [facility] LDL Cholesterol 52 <100 mg/dL 09/28/2018 [facility] Calculated 12:24 PM [facility] Comment: Desirable: <100 mg/dl Non HDL Cholesterol 75 <130 mg/dL 09/28/2018 12:24 PM [facility] Specimen Anatomical Collection Method Collection Time Receive d Time (Source) Location / / Volume Laterality Blood specimen 09/28/2018 11:11 8 (specimen) AM PROFILE MILL OPERATOR TAPE CONTROL 11:43 AM PROFILE MILL OPERATOR TAPE CONTROL Juan Vásquez MD LAB - BLOOD ORDERABLES Performing Organization Address City/State/ZIP Code Phon e Number M [facility] [address] [place] [address] [facility] [address] [place] [address], [place] [phone] (ABNORMAL) ABO/Rh type and screen (09/28/2018 11:11 AM PROFILE MILL OPERATOR TAPE CONTROL) Component Value Ref Test Analysis Performed At [facility] gist Range Method Time Signature Units Ordered 2 09/28/2018 [facility] 11:54 AM [facility] ABO O 09/28/2018 [facility] 12:28 PM [facility] RH(D) Pos [facility] Antibody Screen Pos (A) 09/28/2018 [facility] 12:28 PM [facility] Test Valid Only [place] 09/28/2018 [facility] At [facility] 11:47 AM [facility] HOSPITAL Specimen Expires 10/01/2018 09/28/2018 [facility] 11:47 AM [facility] Crossmatch Red Blood Cells 09/28/2018 [facility] 11:54 AM [facility] Blood Bank Delay in availability of Red Blood Cells called to 09/28/2018 [facility] Comment Esme in Preop at 1228 re 12:37 PM [facility] Antibody ANTI-Rosa 09/28/2018 [facility] Identification 1:26 PM [facility] Antigen Type [place] Negative 09/28/2018 [facility] 1:26 PM [facility] Specimen Anatomical Collection Method Collection Time Receive d Time (Source) Location / / Volume Laterality Blood specimen 09/28/2018 11:11 8 (specimen) AM PROFILE MILL OPERATOR TAPE CONTROL 11:44 AM PROFILE MILL OPERATOR TAPE CONTROL Juan Vásquez MD LAB - BLOOD BANK TEST ORDER Performing Organization Address City/State/ZIP Code Phon e Number M [facility] [address] [address] [facility] [address] [place] [address], [place] [phone] (ABNORMAL) Hemoglobin A1c (09/28/2018 11:11 AM PROFILE MILL OPERATOR TAPE CONTROL) P athologist Signature Hemoglobin A1C 5.7 (H) 0 - 5.6 % 09/28/2018 [facility] 12:08 PM [facility] Comment: Normal <5.7% Prediabetes 5.7-6.4% ??Diab etes 6.5% or higher - adopted from ADA consensus guidelines. Specimen Anatomical Collection Method Collection Time Receive d Time (Source) Location / / Volume Laterality Blood specimen 09/28/2018 11:11 8 (specimen) AM PROFILE MILL OPERATOR TAPE CONTROL 11:43 AM PROFILE MILL OPERATOR TAPE CONTROL Juan Vásquez MD LAB - BLOOD ORDERABLES Performing Organization Address City/State/ZIP Code Phon e Number M [facility] [address] [place] [address] [facility] [address] [place] [address], [place] [phone] (ABNORMAL) Creatinine (09/28/2018 11:11 AM PROFILE MILL OPERATOR TAPE CONTROL) P athologist Signature Creatinine 1.46 (H) 0.66 - 09/28/2018 [facility] 1.25 mg/dL 12:22 PM [facility] GFR Estimate 47 (L) >60 09/28/2018 [facility] mL/min/1.7 12:[address] Comment: Non GFR Calc GFR Estimate If 57 (L) >60 mL/min/1.7m2 09/28/2018 12:22 PM [facility] Comment: GFR Calc Specimen Anatomical Collection Method Collection Time Receive d Time (Source) Location / / Volume Laterality Blood specimen 09/28/2018 11:11 8 (specimen) AM PROFILE MILL OPERATOR TAPE CONTROL 11:43 AM PROFILE MILL OPERATOR TAPE CONTROL Juan Vásquez MD LAB - BLOOD ORDERABLES Performing Organization Address City/State/ZIP Code Phon e Number M [facility] [address] [address] [facility] [address] [address], [place] [phone] LAB RESULT - HIM SCAN (09/24/2018 12:00 AM PROFILE MILL OPERATOR TAPE CONTROL) Specimen (Source) Anatomical Location Collection Method / Collectio n Time Received Time / Laterality Volume 09/24/2018 Narrative This result has an attachment that is no t available. Provider Outside NON-BEAKER LAB TESTING EKG CARDIAC - HIM SCAN (09/24/2018 12:00 AM PROFILE MILL OPERATOR TAPE CONTROL) Specimen (Source) Anatomical Location Collection Method / [...] (TYLENOL) tablet 975 Given 09/29/2018 5:41 AM PROFILE MILL OPERATOR TAPE CONTROL 975 mg mg 975 mg, Oral, EVERY 8 HOURS, First dose on Thu09/28/18 at 2200, For 3 days, Do not use if patient has an active opioid/acetaminophen combined analgesic product ordered for pain. Maximum acetaminophen dose from all sources = 75 mg/kg/day not to exceed 4 grams/day., Post-procedure Given 09/28/2018 9:50 PM PROFILE MILL OPERATOR TAPE CONTROL 975 mg atorvastatin (LIPITOR) tablet 40 mg Given 09/28/2018 9:50 PM PROFILE MILL OPERATOR TAPE CONTROL 40 mg 40 mg, Oral, EVERY EVENING, First dose on Thu09/28/18 at 2000 heparin 10,000 units in 1000 mL 0.9% Given 09/28/2018 1:37 PM CS T 1,000 mLs sodium chloride PRN, Starting on Thu09/28/18 at 1335, Intra-procedure Given 09/28/2018 1:36 PM PROFILE MILL OPERATOR TAPE CONTROL 1,000 mLs Given 09/28/2018 1:35 PM PROFILE MILL OPERATOR TAPE CONTROL 1,000 mLs lactated ringers infusion New Bag 09/29/2018 2:48 AM PROFILE MILL OPERATOR TAPE CONTROL 125 mL/hr at 125 mL/hr, Intravenous, CONTINUOUS, NOT for patient on renal dialysis. Saline lock after 1 liter if taking PO fluids., Post-procedure, Starting on Thu09/28/18 at 1800, Until Thu09/29/18 at 1753 Rate/Dose Verify 09/29/2018 12:39 AM PROFILE MILL OPERATOR TAPE CONTROL 125 mL/hr New Bag 09/28/2018 6:31 PM PROFILE MILL OPERATOR TAPE CONTROL 125 mL/hr lisinopril (PRINIVIL/ZESTRIL) tablet 5 m g Given 09/29/2018 8:21 AM PROFILE MILL OPERATOR TAPE CONTROL 5 mg 5 mg, Oral, 2 TIMES DAILY, First dose on Thu09/28/18 at 2100 Given 09/28/2018 9:52 PM PROFILE MILL OPERATOR TAPE CONTROL 5 mg melatonin tablet 10 mg Given 09/29/2018 2:48 AM PROFILE M[employer] OPERATOR TAPE CONTROL 10 mg 10 mg, Oral, AT BEDTIME PRN, sleep, Starting on Thu09/29/18 at 0044 metoprolol tartrate (LOPRESSOR) tablet 5 0 mg Given 09/29/2018 8:21 AM PROFILE MILL OPERATOR TAPE CONTROL 50 mg 50 mg, Oral, 2 TIMES DAILY, First dose on Thu09/28/18 at 2100 Given 09/28/2018 9:50 PM PROFILE MILL OPERATOR TAPE CONTROL 50 mg oxyCODONE (ROXICODONE) tablet 5 mg Given 09/28/2018 10:49 PM PROFILE MILL OPERATOR TAPE CONTROL 5 mg 5 mg, Oral, EVERY 3 HOURS PRN, other, pain control or improvement in physical function. Hold dose for analgesic side effects., Starting on Thu09/28/18 at 1751, Notify provider to assess for uncontrolled pain or analgesic side effects. Hold while on ORIENTAL RUG STRETCHER or with regular IV opioid dosing. Maximum total is 40 mg in 24 hours., Post-procedure sodium chloride (PF) 0.9% PF flush 3 mL Given 09/28/2018 9:58 PM PROFILE MILL OPERATOR TAPE CONTROL 3 mLs 3 mL, Intracatheter, EVERY 8 HOURS, First dose on Thu09/28/18 at 2200, And Q1H PRN, to lock peripheral IV dormant line., Post-procedure terazosin (HYTRIN) capsule 5 mg Given 09/28/2018 10:49 PM PROFILE MILL OPERATOR TAPE CONTROL 5 mg 5 mg, Oral, AT BEDTIME, First dose on Thu09/28/18 at 2200 documented in this encounter Active and Recently Administered Medications Times are shown in PROFILE MILL OPERATOR TAPE CONTROL. Scheduled Medication Order 09/27/2018 09/28/2018 09/29/2018 acetaminophen (TYLENOL) tablet 975 mg 21 50 (Given - Provider: Ira South RN) 0541 (Given - Provider: Griselda iDnero RN)1457 (Not Given - Provider: Jose Dave [...] 40 mg 2149 (Given - Provider: Ira South RN) 40 mg, Oral, EVERY EVENING, First dose on Thu09/28/18 at 2000 ceFAZolin (ANCEF) intermittent infusion 2 g in 100 mL dextrose PRE-MIX (COMPLETED) 215 (Given - Provider: Ira South RN ) 0541 (Given - Provider: Grisedla Dinero RN) 2 g, Intravenous, EVERY 8 [...] South RN) 0821 (Given - Provider: Cary aHrper) 5 mg, Oral, 2 TIMES DAILY, First [...] mL 2158 (Given - Provider: Ira South, JOSE) 0555 (Not Given - Provider: Griselda bradshaw RN - Reason: IV Infusing)1457 (Not Given - Provider: Jose Dave RN - Reason: Loss of IV access) 3 mL, Intracatheter, EVERY 8 HOURS, Firs t dose on Thu09/28/18 at 2200, And Q1H PRN, to lock peripheral IV dormant line., Post-procedure terazosin (HYTRIN) capsule 5 mg 2249 (Given - Pr ovider: Ira South, JOSE) 5 mg, Oral, AT BEDTIME, First dose on Thu09/28/18 at 2200 Continuous Medication Order 09/27/2018 09/28/2018 09/29/2018 lactated ringers infusion (CANCELED) 121 6 (New Bag - Provider: Isis Rivera RN)1319 (Anesthesia Volume Adjustment - Provider: Mattie Marmolejo APRN ROASTER HELPER)1432 (Anesthesia Volume Adjustment - Provider: Mattie Marmolejo APRN ROASTER HELPER) at 25 mL/hr, Intravenous, CONTINUOUS, IF patient NOT on dialysis., Pre- procedure, Starting Thu09/28/18 at 1115, Until Thu09/28/18 at 1457 lactated ringers infusion 1831 (New Bag - Provid er: Vandana Smith RN) 0039 (Rate/Dose Verify - Provider: Griselda Dinero, JOSE)0248 (New Bag - Provider: Griselda Dinero, JOSE)1202 [...] Muñiz RN)1550 (Given - Provider: Rylee Muñiz, JOSE)1604 (Given - Provider: Rylee Muñiz RN) 25-50 [...] mg 0248 (Giv en - Provider: Griselda Dinero, JOSE) 10 mg, Oral, AT BEDTIME PRN, sleep, [...] 5 mg 2248 (Given - Provider: Ira South, JOSE) 5 mg, Oral, EVERY 3 HOURS PRN, other, pa in control or improvement in physical function. Hold dose for analgesic side effects., Starting Thu09/28/18 at 1751, Notify provider to assess for uncontrolled p ain or analgesic side effects. Hold whil e on ORIENTAL RUG STRETCHER or with regular IV opioid dosing. Maximum total is 40 mg in 24 hours., Post-procedure sodium chloride (PF) 0.9% PF flush 3 mL 3 mL, Intracatheter, EVERY 1 HOUR PRN, l ine flush, for peripheral IV flush post IV meds, Starting Thu09/28/18 at 1751, Post-procedure documented in this encounter Care Teams Track Vehicle Repairer Relationship Specialty Start Date End Date Clinic, [facility] PCP - General 05/12/17 [address] [place] [address] documented as of this encounter
--- OUTSIDE RECORDS SUMMARY | 2022-07-31 13:58 | XMS_ITS | Encounter Summary ---
:1940 Author Organization [place] Address [address] [facility] [place] [address] Care Team Providers Name Role Phone Clinic, [facility] Primary Care Provider [phone] Reason for Visit Auth/Cert Specialty Diagnoses / Procedures Referred By Contact Refer red To Contact Surgery Diagnoses ABDOMINAL AORTIC ANEURYSM Sh Periop Services Procedures ENDOVASCULAR REPAIR ANEURYSM ABDOMINAL AORTA [address] [place] [address] Phone: Referral ID Status Reason Start Date Expiration Date Visits Requ ested Visits Authorized [id number] 1 1 Encounter Details Date Type Department Care Team Description 09/28/2018 - [facility] Juan Vásquez MD [address] [place] [id number] AAA (abdominal 09/29/2018 Encounter Carrie Abdi MD [address] [place] [id number] aortic aneurysm) Intermediate Care (H) [address] [place] [...] Comments Blood Pressure 135/74 09/29/2018 11:18 AM PLATEN DRIER OPERATOR Pulse 48 09/29/2018 11:18 AM PLATEN DRIER OPERATOR Temperature 36.5 ??C (97.7 ??F) 09/29/2018 11:18 AM PLATEN DRIER OPERATOR Respiratory Rate 16 09/29/2018 11:18 AM PLATEN DRIER OPERATOR Oxygen Saturation 95% 09/29/2018 11:18 AM PLATEN DRIER OPERATOR Inhaled Oxygen Concentration - - Weight 85.2 kg (187 lb 12.8 oz) 09/29/2018 5:00 AM PLATEN DRIER OPERATOR Height 170.2 cm (5' 7) 09/28/2018 11:21 AM PLATEN DRIER OPERATOR Body Mass Index 29.41 09/28/2018 11:21 AM PLATEN DRIER OPERATOR documented in this encounter Discharge Summaries Juan [...] MD MT: RIO Name: SPEEDY MCDUFFIE Account: [id number] : 1940 Admit Date: 09/28/2018 Discharge Date: 09/29/2018 Document: [id number] cc: Primary EN DRIER OPERATOR documented in this encounter Medications at [...] Levi MD - 09/29/2018 9:32 AM CST [facility] Vascular Medicine Progress Note Date of Service (when I saw the patient): 09/29/2018 Attestation: I have examined the patient independently of Pam Conde PA-C and agree with the examination and plan as delineated below. Carrie Leiv MD Assessment & Plan 1. A 46 [...] aorta. Exchange was made for a 6 Russian vascular sheath. 18-gauge singlewall needle was then advanced into the left common femoral artery through which a 0.035 inch Bentson wire was advanced in the abdominal aorta. Exchange is made for a 6 Russian vascular sheath. Via the left groin access, a 5 Russian pigtail catheter was advanced over the Bentson wire into the abdominal aorta. Via the right groin, a 5 Russian pigtail catheter was advanced over the Bentson [...] during business hours M-F, call the [facility] at [phone] to have the rounding/airborne weapons technical manager Vascular Medicine (NOT VASCULAR SURGERY) MD paged. - After business hours M-F,??for medical concerns on this patient, please page hospitalist staff. - For vascular surgical questions, please page the appropriate surgeon (primary vascular surgeon or airborne weapons technical manager vascular surgeon) based upon the time of day. Lambert Fontanez PA-C Zoltan Londono MD - 09/29/2018 8:19 AM CST [facility] Vascular Surgery Progress Note Assessment & Plan [...] ??? terazosin 5 mg Oral At Bedtime EN DRIER OPERATOR Brandie Barrera PA-C - 09/28/2018 5:55 PM CST HOSPITALIST CONSULT CHART CHECK: Hospitalist service was consulted for cross coverage only. We will peripherally follow and chart check throughout the week. - For vascular medical concerns during business hours M-F, call the [facility] at [phone] to have the rounding/airborne weapons technical manager Vascular Medicine (NOT VASCULAR SURGERY) MD paged. - After business hours M-,??for medical concerns on this patient, please page hospitalist staff. - For vascular surgical questions, please page the appropriate surgeon (primary vascular surgeon or airborne weapons technical manager vascular surgeon) based upon the time of day. Brandie Barrera PA-C EN DRIER OPERATOR Michelle Villalta - 09/28/2018 10:42 AM CST Admission medication history interview status for the 09/28/2018 admission is complete. See [facility] admission navigator for prior to admission medications Medication history source reliability:Good Medication history interview source(s):Patient Medication history resources (including written lists, pill bottles, clinic record):Patient mailed in his medication list prior to surgery Primary pharmacy.[facility] Additional medication history information not noted on [facility] med list :None Time spent in this [...] at HS Yes Unknown, Entered By History EN DRIER OPERATOR documented in this encounter Procedure Notes Jacqui [...] for procedural details. Provider name: Jacqui Odom Steam Trap Worker(s):None EN DRIER OPERATOR documented in this encounter Consult Notes Carrie [...] in his throat. PENICILLINS cause a rash. NORVASC has an unspecified allergy associated with its use. PREVIOUS MEDICAL HISTORY: 1. Hyperlipidemia. 2. Hypertension. 3. Contact dermatitis. 4. AAA. 5. Colonic polyps. 6. Lumbar spinal stenosis. 7. Impaired fasting glucose. 8. Stage III chronic kidney disease. 9. Paroxysmal atrial fibrillation. PREVIOUS SURGICAL HISTORY: 1. Cervical fusion December 1978. 2. Cervical fusion, Dr. Donahue at [facility] 02/18/2006. 3. Hardware removal and matrixectomy, right great toe, 09/30/2012. 4. Lumbar fusion 10/1996, L5-S1. 5. Lumbar fusion 1999, L4. 6. 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 7. Laparoscopic appendectomy, 01/2009. SOCIAL HISTORY: The patient is . He has 2 children. 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 He quit smoking [id number] after a 1/4 pack per day use [...] MD MT: JACKSON Name: SPEEDY MCDUFFIE Account: [id number] : 1940 Consult Date: 09/28/2018 Document: [id number] EN DRIER OPERATOR documented in this encounter Miscellaneous Notes Op Note - Debbie, Juan Nava MD - 09/29/2018 3:53 PM CST Procedure [...] MD MT: JACKSON Name: SPEEDY MCDUFFIE Account: [id number] : 1940 Procedure Date: 09/28/2018 Document: [id number] EN DRIER OPERATOR Plan of Care - Griselda Dinero RN [...] will continue to follow up with this. EN DRIER OPERATOR Provider Notification - Levi Hollingsworth MD - 09/29/2018 12:46 AM PLATEN DRIER OPERATOR Brief update: Paged re: request for home melatonin 10 mg melatonin HS PRN added. Levi Hollingsworth MD 12:47 AM EN DRIER OPERATOR Plan of Care - Ira South RN - 09/28/2018 11:11 PM CST A&O, VSS, Lung sounds clear, Bowel sounds active,adeqaute urine output, incision right & letgroin CDI Ambulates assist 1, Regular diet, tolerating liquids with poor appetite. Pain controlled by scheduled tylenol and PRN oxycodone. EN DRIER OPERATOR Plan of Care - Vandana Smith RN - 09/28/2018 7:22 PM CST Pt is came from PACU.Groin site dressing clean dry and intact.Not void yet.Ice pack given.IVF running .will monitor. EN DRIER OPERATOR documented in this encounter Plan of Treatment Not on filedocumented as of this encounter Procedures Procedure Name Priority Date/Time Associated Comments Diagnosis CTA CHEST WITH Routine 09/29/2018 11:38 Results f or this CONTRAST AM PLATEN DRIER OPERATOR procedure are i n the results section. BASIC METABOLIC PANEL Timed 09/29/2018 10:06 AAA (abdominal Results for this AM PLATEN DRIER OPERATOR aortic aneurysm) procedure a re in (H) the results section. GLUCOSE BY METER Routine 09/29/2018 6:00 AM AAA (abdominal Res ults for this PLATEN DRIER OPERATOR aortic aneurysm) procedure a re in (H) the results section. ANGIOGRAM Routine 09/28/2018 2:39 PM PLATEN DRIER OPERATOR IR ABDOMINAL Routine 09/28/2018 2:17 PM AAA (abdominal Results for this ENDOVASCULAR STENT PLATEN DRIER OPERATOR aortic aneurysm) proce dure are in GRAFT (H) the results section. EKG 12-LEAD, TRACING STAT 09/28/2018 11:42 Res ults for this ONLY AM PLATEN DRIER OPERATOR procedure are i n the results section. XR CHEST 1 VIEW STAT 09/28/2018 11:21 Results for this AM PLATEN DRIER OPERATOR procedure are i n the results section. BLOOD COMPONENT Routine 09/28/2018 11:11 AAA (abdominal Result s for this AM PLATEN DRIER OPERATOR aortic aneurysm) procedure a re in (H) the results section. BLOOD COMPONENT Routine 09/28/2018 11:11 AAA (abdominal Result s for this AM PLATEN DRIER OPERATOR aortic aneurysm) procedure a re in (H) the results section. POTASSIUM STAT 09/28/2018 11:11 AAA (abdominal Results f or this AM PLATEN DRIER OPERATOR aortic aneurysm) procedure a re in (H) the results section. LIPID PROFILE STAT 09/28/2018 11:11 AAA (abdominal Results for this AM PLATEN DRIER OPERATOR aortic aneurysm) procedure a re in (H) the results section. HEMOGLOBIN A1C STAT 09/28/2018 11:11 AAA (abdominal Results for this AM PLATEN DRIER OPERATOR aortic aneurysm) procedure a re in (H) the results section. CREATININE STAT 09/28/2018 11:11 AAA (abdominal Results f or this AM PLATEN DRIER OPERATOR aortic aneurysm) procedure a re in (H) the results section. ABO/RH TYPE AND STAT 09/28/2018 11:11 AAA (abdominal Result s for this SCREEN AM PLATEN DRIER OPERATOR aortic aneurysm) procedure a re in (H) the results section. LAB RESULT - HIM SCAN 09/24/2018 12:00 AM PLATEN DRIER OPERATOR EKG CARDIAC - HIM 09/24/2018 12:00 SCAN AM PLATEN DRIER OPERATOR documented in this encounter Results CTA Chest with Contrast (09/29/2018 11:38 AM PLATEN DRIER OPERATOR) Anatomical Region Laterality Modality Chest, SUBRAD IR PROCEDURE, UMP CT CTA, RAD CT Computed Tomography Specimen (Source) Anatomical Location Collection Method / Collectio n Time Received Time / Laterality Volume Impressions 09/29/2018 4:30 PM PLATEN DRIER OPERATOR IMPRESSION: Tortuous descending thoracic aorta with bilobed aneurysmal dilatation measuring up to 50 mm in diameter in the distal descending aorta. JACQUI A WELNICK, MD Narrative 09/29/2018 4:30 PM PLATEN DRIER OPERATOR PROCEDURE: CTA of the chest DATE OF [...] ORDERABLES Basic metabolic panel (09/29/2018 10:06 AM [facility]) [facility] Time Signature Sodium 141 133 - 144 09/29/2018 [facility] mmol/L 10:31 AM [facility] Potassium 4.5 3.4 - 5.3 09/29/2018 [facility] mmol/L 10:31 AM [facility] Chloride 109 94 - 109 09/29/2018 [facility] mmol/L 10:31 AM [facility] Carbon Dioxide 25 20 - 32 09/29/2018 [facility] mmol/L 10:31 AM [facility] Anion Gap 7 3 - 14 09/29/2018 [facility] mmol/L 10:31 AM [facility] Glucose 97 70 - 99 09/29/2018 [facility] mg/dL 10:31 AM [facility] Urea Nitrogen 18 7 - 30 09/29/2018 [facility] mg/dL 10:31 AM [facility] Creatinine 1.25 0.66 - 09/29/2018 [facility] 1.25 10:31 AM [facility] mg/[facility] GFR Estimate Not Calculated >60 09/29/2018 [facility] mL/min/1. 10:[address] GFR Estimate Not Calculated >60 09/29/2018 [facility] If Black mL/min/1. 10:[address] Calcium 8.8 8.5 - 09/29/2018 [facility] 10.1 10:31 AM [facility] mg/dL HOSPITAL Specimen Anatomical Collection Method Collection Time Receive d Time (Source) Location / / Volume Laterality Blood specimen 09/29/2018 10:06 8 (specimen) AM PLATEN DRIER OPERATOR 10:07 AM PLATEN DRIER OPERATOR Pam Conde PA-C LAB - BLOOD ORDERABLES Performing Organization Address City/State/ZIP Code Phon e Number [facility] [address] [place] [address] [facility] [address] [place] [address], [place] [phone] (ABNORMAL) Glucose by meter (09/29/2018 6:00 AM PLATEN DRIER OPERATOR) P athologist Signature Glucose 109 (H) 70 - 99 09/29/2018 [facility] mg/dL 6:18 AM PLATEN DRIER OPERATOR TEST, GLUCOSE Specimen Anatomical Collection Method Collection Time Receive d Time (Source) Location / / Volume Laterality 09/29/2018 6:00 AM 8 6:18 PLATEN DRIER OPERATOR AM PLATEN DRIER OPERATOR Juan Vásquez MD LAB - BEAKER POCT Performing Organization Address City/State/ZIP Code Phon e Number [facility] POINT OF CARE TEST, GLUCOSE POINT OF CARE TEST, GLUCOSE IR Abdominal Endovascular Stent Graft (09/28/2018 2:17 PM PLATEN DRIER OPERATOR) Anatomical Region Laterality Modality Abdomen/Pelvis Radio Fluoroscopy Specimen (Source) Anatomical Location Collection Method / Collectio n Time Received Time / Laterality Volume Impressions 09/29/2018 8:52 AM PLATEN DRIER OPERATOR Impression: 1. Thoracic and abdominal angiography de monstrating previously unknown thoracic aortic aneurysm as well as the known abdominal aortic aneurysm 2. Endovascular aneurysm repair was abor clover to allow for further investigation of the thoracic aortic ane urysm and future surgical planning. JACQUI ODOM MD Narrative 09/29/2018 8:52 AM PLATEN DRIER OPERATOR PROCEDURE(S): 1. Thoracic and abdominal aortic angiogr [...] the procedure, a multi-disciplinary approach was used wh ch involved Mili Vásquez and Lei functioning as co-surgeons for t his procedure. Bilateral common femoral arteries were s urgically exposed, see separate operative report for details. A n 18-gauge singlewall needle was then inserted into the right common femoral artery through which a 0.035 inch Bentson wire was advanced int o the abdominal aorta. Exchange was made for a 6 Russian vascula r sheath. 18-gauge singlewall needle was then advanced into the left c ommon femoral artery through which a 0.035 inch Bentson wire was adva nced in the abdominal aorta. Exchange is made for a 6 Russian vascular sheath. Via the left groin access, a 5 Russian pigtail catheter was advanced over the Bentson wire into the abdominal aorta. Via the right groin, a 5 Russian pigtail catheter was advanced over the Bentson [...] aorta. Exchange was made for a 6 Russian vascula r sheath. 18-gauge singlewall needle was then advanced into the left c ommon femoral artery through which a 0.035 inch Bentson wire was adva nced in the abdominal aorta. Exchange is made for a 6 Russian vascular sheath. Via the left groin access, a 5 Russian pigtail catheter was advanced over the Bentson wire into the abdominal aorta. Via the right groin, a 5 Russian pigtail catheter was advanced over the Bentson [...] EKG 12-lead, tracing only (09/28/2018 11:42 AM PLATEN DRIER OPERATOR) [facility] Method Time Signature Interpretation ECG Click View RADIOLOGY Image link RESULTS to view waveform and result Specimen (Source) Anatomical Collection Method Collection Time Re ceived Time Location / / Volume Laterality 09/28/2018 11:42 AM PLATEN DRIER OPERATOR Juan Vásquez MD ECG ORDERABLES Performing Organization Address City/State/ZIP Code Phon e Number RADIOLOGY RESULTS XR Chest 1 View (09/28/2018 11:21 AM PLATEN DRIER OPERATOR) Anatomical Region Laterality Modality Chest Digital Radiography Specimen (Source) Anatomical Location Collection Method / Collectio n Time Received Time / Laterality Volume Impressions 09/28/2018 1:09 PM PLATEN DRIER OPERATOR IMPRESSION: Heart size similar to prior. The thoracic aorta is elongated. No airspace consolidation or pneumothorax. There appears to be a small right pleural effusion. ELAINA HUNTLEY MD Narrative 09/28/2018 1:09 PM PLATEN DRIER OPERATOR CHEST ONE VIEW ??09/28/2018 11:21 AM HISTORY: [...] ORDER BRAYDEN Blood component (09/28/2018 11:11 AM PLATEN DRIER OPERATOR) [facility] gist Method Time Signature Unit Number [id number] 09/28/2018 [facility] 1:21 PM [facility] Blood Red Blood 09/28/2018 [facility] Component Cells 1:21 PM [facility] Reduced Division 00 09/28/2018 [facility] Number 1:21 PM [facility] Status of No longer 10/02/2018 [facility] Unit available 3:00 AM [facility] 10/02/2018 [facility] 0300 Blood Product [id number] 09/28/2018 [facility] Code 1:21 PM [facility] Unit Status [facility] Specimen Anatomical Collection Method Collection Time Receive d Time (Source) Location / / Volume Laterality 09/28/2018 11:11 09/28/2018 AM PLATEN DRIER OPERATOR 11:44 AM PLATEN DRIER OPERATOR Juan Vásquez MD LABORATORY Performing Organization Address City/State/ZIP Code Phon e Number M [facility] [address] [facility] [place] [address] [facility] [address] [place] [address], [facility] [id number] [facility] [address] [place], [place] [address], [facility] [phone] Blood component (09/28/2018 11:11 AM PLATEN DRIER OPERATOR) Patholo gist Method Time Signature Unit Number [id number] 09/28/2018 [facility] 1:21 PM PLATEN DRIER OPERATOR [facility] Blood Red Blood 09/28/2018 [facility] Component Cells 1:21 PM PLATEN DRIER OPERATOR [facility] Reduced Division 00 09/28/2018 [facility] Number 1:21 PM [facility] Status of No longer 10/02/2018 [facility] Unit available 3:00 AM [facility] 10/02/2018 [facility]OSPITAL 0300 Blood Product [id number] 09/28/2018 [facility] Code 1:21 PM [facility] Unit Status [facility] Specimen Anatomical Collection Method Collection Time Receive d Time (Source) Location / / Volume Laterality 09/28/2018 11:11 09/28/2018 AM PLATEN DRIER OPERATOR 11:44 AM PLATEN DRIER OPERATOR Juan Vásquez MD LABORATORY Performing Organization Address City/State/ZIP Code Phon e Number [facility] [address] [place], [place] [address] [facility] [address] [place] [address], [facility] [phone] [facility] [address] [place], [place] [address], [facility] [phone] Potassium (09/28/2018 11:11 AM PLATEN DRIER OPERATOR) P athologist Signature Potassium 4.0 3.4 - 5.3 09/28/2018 [facility] mmol/L 12:22 PM PLATEN DRIER OPERATOR [facility] Specimen Anatomical Collection Method Collection Time Receive d Time (Source) Location / / Volume Laterality Blood specimen 09/28/2018 11:11 8 (specimen) AM PLATEN DRIER OPERATOR 11:43 AM PLATEN DRIER OPERATOR Ramiro Card MD LAB - BLOOD ORDERABLES Performing Organization Address City/State/ZIP Code Phon e Number M [facility] [address] [place] [address] [phone] [facility] [address] [place] [address], [place] [phone] Lipid panel (09/28/2018 11:11 AM PLATEN DRIER OPERATOR) Analysis Performed At Patho logist Time Signature Cholesterol 143 <200 mg/dL 09/28/2018 [facility] 12:22 PM [facility] Triglycerides 115 <150 mg/dL 09/28/2018 [facility] 12:24 PM [facility] HDL Cholesterol 68 >39 mg/dL 09/28/2018 [facility] 12:24 PM [facility] LDL Cholesterol 52 <100 mg/dL 09/28/2018 [facility] Calculated 12:24 PM [facility] Comment: Desirable: <100 mg/dl Non HDL Cholesterol 75 <130 mg/dL 09/28/2018 12:24 PM [facility] Specimen Anatomical Collection Method Collection Time Receive d Time (Source) Location / / Volume Laterality Blood specimen 09/28/2018 11:11 8 (specimen) AM PLATEN DRIER OPERATOR 11:43 AM PLATEN DRIER OPERATOR Juan Vásquez MD LAB - BLOOD ORDERABLES Performing Organization Address City/State/ZIP Code Phon e Number M [facility] [address] [place] [address] [facility] [address] [place] [address], [place] [phone] (ABNORMAL) ABO/Rh type and screen (09/28/2018 11:11 AM PLATEN DRIER OPERATOR) Component Value Ref Test Analysis Performed At [facility] gist Range Method Time Signature Units Ordered 2 09/28/2018 [facility] 11:54 AM [facility] ABO O 09/28/2018 [facility] 12:28 PM [facility] RH(D) Pos [facility] Antibody Screen Pos (A) 09/28/2018 [facility] 12:28 PM [facility] Test Valid Only [place] 09/28/2018 [facility] 11:47 AM [facility] Specimen Expires 10/01/2018 09/28/2018 [facility] 11:47 AM [facility] Crossmatch Red Blood Cells 09/28/2018 [facility] 11:54 AM [facility] Blood Bank Delay in availability of Red Blood Cells called to 09/28/2018 [facility] Comment Esme in Preop at 1228 re 12:37 PM [facility] Antibody ANTI-Rosa 09/28/2018 [facility] Identification 1:26 PM [facility] Antigen Type [place] Negative 09/28/2018 [facility] 1:26 PM [facility] Specimen Anatomical Collection Method Collection Time Receive d Time (Source) Location / / Volume Laterality Blood specimen 09/28/2018 11:11 8 (specimen) AM PLATEN DRIER OPERATOR 11:44 AM PLATEN DRIER OPERATOR Juan Vásquez MD LAB - BLOOD BANK TEST ORDER Performing Organization Address City/State/ZIP Code Phon e Number M [facility] [address] [place] [address] [facility] [address] [place] [address], [place] [phone] (ABNORMAL) Hemoglobin A1c (09/28/2018 11:11 AM PLATEN DRIER OPERATOR) P athologist Signature Hemoglobin A1C 5.7 (H) 0 - 5.6 % 09/28/2018 [facility] 12:08 PM [facility] Comment: Normal <5.7% Prediabetes 5.7-6.4% ??Diab etes 6.5% or higher - adopted from ADA consensus guidelines. Specimen Anatomical Collection Method Collection Time Receive d Time (Source) Location / / Volume Laterality Blood specimen 09/28/2018 11:11 8 (specimen) AM PLATEN DRIER OPERATOR 11:43 AM PLATEN DRIER OPERATOR Juan Vásquez MD LAB - BLOOD ORDERABLES Performing Organization Address City/State/ZIP Code Phon e Number M [facility] [address] [place] [address] [facility] [address] [place] [address], [place] [phone] (ABNORMAL) Creatinine (09/28/2018 11:11 AM PLATEN DRIER OPERATOR) P athologist Signature Creatinine 1.46 (H) 0.66 - 09/28/2018 [facility] 1.25 mg/dL 12:22 PM [facility] GFR Estimate 47 (L) >60 09/28/2018 [facility] mL/min/1.7 12:[address] Comment: Non GFR Calc GFR Estimate If 57 (L) >60 mL/min/1.7m2 09/28/2018 12:22 PM [facility] Comment: GFR Calc Specimen Anatomical Collection Method Collection Time Receive d Time (Source) Location / / Volume Laterality Blood specimen 09/28/2018 11:11 8 (specimen) AM PLATEN DRIER OPERATOR 11:43 AM PLATEN DRIER OPERATOR Juan Vásquez MD LAB - BLOOD ORDERABLES Performing Organization Address City/State/ZIP Code Phon e Number M [facility] [address] [place] [address] [phone] [facility] [address] [place] [address], [place] [phone] LAB RESULT - HIM SCAN (09/24/2018 12:00 AM PLATEN DRIER OPERATOR) Specimen (Source) Anatomical Location Collection Method / Collectio n Time Received Time / Laterality Volume 09/24/2018 Narrative This result has an attachment that is no t available. Provider Outside NON-BEAKER LAB TESTING EKG CARDIAC - HIM SCAN (09/24/2018 12:00 AM PLATEN DRIER OPERATOR) Specimen (Source) Anatomical Location Collection Method / Collectio n Time Received Time / Laterality Volume 09/24/2018 Narrative This result has an attachment that is no t available. Provider Outside ECG ORDERABLES documented in this encounter Visit Diagnoses Diagnosis AAA (abdominal aortic aneurysm) Abdominal aneurysm without mention of ru pture AAA (abdominal aortic aneurysm) Abdominal aneurysm without mention of ru pture documented in this encounter Administered Medications Inactive Administered Medications - up to 3 most recent administrations Medication Order MAR Action Action Date Dose Rate Site acetaminophen (TYLENOL) tablet 975 Given 09/29/2018 5:41 AM PLATEN DRIER OPERATOR 975 mg mg 975 mg, Oral, EVERY 8 HOURS, First dose on Thu09/28/18 at 2200, For 3 days, Do not use if patient has an active opioid/acetaminophen combined analgesic product ordered for pain. Maximum acetaminophen dose from all sources = 75 mg/kg/day not to exceed 4 grams/day., Post-procedure Given 09/28/2018 9:50 PM PLATEN DRIER OPERATOR 975 mg apixaban ANTICOAGULANT (ELIQUIS) tablet 2.5 Given 09/29/2018 8:22 AM PLATEN DRIER OPERATOR 2.5 mg mg 2.5 mg, Oral, 2 TIMES DAILY, First dose on Thu09/29/18 at 0900 atorvastatin (LIPITOR) tablet 40 mg Given 09/28/2018 9:50 PM PLATEN DRIER OPERATOR 40 mg 40 mg, Oral, EVERY EVENING, First dose on Thu09/28/18 at 2000 ceFAZolin (ANCEF) intermittent infusion Given 09/29/2018 5:4 1 AM PLATEN DRIER OPERATOR 2 g 200 mL/hr 2 g in 100 mL dextrose PRE-MIX Routine, 2 g, Intravenous, EVERY 8 HOURS, First dose on Thu09/28/18 at 2100, For 2 doses, Indications: Perioperative Pharmacoprophylaxis, Post-procedure Given 09/28/2018 9:55 PM PLATEN DRIER OPERATOR 2 g 200 mL/hr fentaNYL (PF) (SUBLIMAZE) injection 100 mcg Given 09/28/2018 12:07 PM PLATEN DRIER OPERATOR 50 mcg 100 mcg, Intravenous, ONCE, On Thu09/28/18 at 1100, For 1 dose, For ordered IV doses 1-100 mcg give IV Push undiluted over a minimum of 3-5 minutes. fentaNYL (PF) (SUBLIMAZE) injection 25-5 0 mcg Given 09/28/2018 4:04 PM PLATEN DRIER OPERATOR 25 mcg 25-50 mcg, Intravenous, EVERY 2 [...] 3-5 minutes., PACU Given 09/28/2018 3:50 PM PLATEN DRIER OPERATOR 25 mcg Given 09/28/2018 3:41 PM PLATEN DRIER OPERATOR 25 mcg hydrALAZINE (APRESOLINE) injection 2.5-5 mg Given 09/28/2018 4:10 PM PLATEN DRIER OPERATOR 5 mg 2.5-5 mg, Intravenous, EVERY 10 [...] solution 80 mL Given 09/29/2018 11:37 AM PLATEN DRIER OPERATOR 80 mLs 80 mL, Intravenous, ONCE, On Thu09/29/18 at 1130, For 1 dose lactated ringers infusion New Bag 09/28/2018 12:16 PM PLATEN DRIER OPERATOR 25 mL/hr at 25 mL/hr, Intravenous, CONTINUOUS, IF patient NOT on dialysis., Pre-procedure, Starting on Thu09/28/18 at 1115, Until Thu09/28/18 at 1457 lactated ringers infusion New Bag 09/29/2018 2:48 AM PLATEN DRIER OPERATOR 125 mL/hr at 125 mL/hr, Intravenous, CONTINUOUS, NOT for patient on renal dialysis. Saline lock after 1 liter if taking PO fluids., Post-procedure, Starting on Thu09/28/18 at 1800, Until Thu09/29/18 at 1753 Rate/Dose Verify 09/29/2018 12:39 AM PLATEN DRIER OPERATOR 125 mL/hr New Bag 09/28/2018 6:31 PM PLATEN DRIER OPERATOR 125 mL/hr lidocaine 1 % 1 mL Given 09/28/2018 12:00 PM PLATEN DRIER OPERATOR 0.3 mLs 1 mL, Other, EVERY 1 HOUR PRN, mild pain with VAD insertion or accessing implanted port, Starting on Thu09/28/18 at 1101, Do NOT give if patient has a history of allergy to any local anesthetic or any louie product. MAX dose 1 mL subcutaneous OR intradermal in divided doses., Pre-procedure lisinopril (PRINIVIL/ZESTRIL) tablet 5 m g Given 09/29/2018 8:21 AM PLATEN DRIER OPERATOR 5 mg 5 mg, Oral, 2 TIMES DAILY, First dose on Thu09/28/18 at 2100 Given 09/28/2018 9:52 PM PLATEN DRIER OPERATOR 5 mg melatonin tablet 10 mg Given 09/29/2018 2:48 AM PLATEN DRIER OPERATOR 10 mg 10 mg, Oral, AT BEDTIME PRN, sleep, Starting on Thu09/29/18 at 0044 metoprolol tartrate (LOPRESSOR) tablet 5 0 mg Given 09/29/2018 8:21 AM PLATEN DRIER OPERATOR 50 mg 50 mg, Oral, 2 TIMES DAILY, First dose on Thu09/28/18 at 2100 Given 09/28/2018 9:50 PM PLATEN DRIER OPERATOR 50 mg midazolam (VERSED) injection 2 mg Given 09/28/2018 12:10 PM PLATEN DRIER OPERATOR 1 mg 2 mg, Intravenous, ONCE, On Thu09/28/18 at 1100, For 1 dose, For ordered IV doses 0.1-2.5 mg give IV Push slowly titrated over a minimum of 2 minutes. Dilute each 1mg in 4mL of NS. Given 09/28/2018 12:07 PM PLATEN DRIER OPERATOR 1 mg oxyCODONE (ROXICODONE) tablet 5 mg Given 09/28/2018 10:49 PM PLATEN DRIER OPERATOR 5 mg 5 mg, Oral, EVERY 3 HOURS PRN, other, pain control or improvement in physical function. Hold dose for analgesic side effects., Starting on Thu09/28/18 at 1751, Notify provider to assess for uncontrolled pain or analgesic side effects. Hold while on MARKETING EXECUTIVE or with regular IV opioid dosing. Maximum total is 40 mg in 24 hours., Post-procedure Saline flush Given 09/29/2018 11:37 AM PLATEN DRIER OPERATOR 80 mLs Intravenous, 80 mL, ONCE, On Thu09/29/18 at 1130, For 1 dose sodium chloride (PF) 0.9% PF flush 3 mL Given 09/28/2018 9:58 PM PLATEN DRIER OPERATOR 3 mLs 3 mL, Intracatheter, EVERY 8 HOURS, First dose on Thu09/28/18 at 2200, And Q1H PRN, to lock peripheral IV dormant line., Post-procedure terazosin (HYTRIN) capsule 5 mg Given 09/28/2018 10:49 PM PLATEN DRIER OPERATOR 5 mg 5 mg, Oral, AT BEDTIME, First dose on Thu09/28/18 at 2200 documented in this encounter Active and Recently Administered Medications Times are shown in PLATEN DRIER OPERATOR. Scheduled Medication Order 09/27/2018 09/28/2018 09/29/2018 acetaminophen [...] mg (CANCELED) 821 (Given - Provider: Jose Dave, RN) 2.5 mg, Oral, 2 TIMES DAILY, First dose on Thu09/29/18 at 0900 atorvastatin (LIPITOR) tablet 40 mg 2149 (Given - Provider: Ira South, RN) 40 mg, Oral, EVERY EVENING, First dose on Thu09/28/18 at 2000 ceFAZolin (ANCEF) intermittent infusion 2 g in 100 mL dextrose PRE-MIX (COMPLETED) 2154 (Given - Provider: Ira South, RN ) 05 (Given - Provider: Griselda Dinero, JOSE) 2 g, Intravenous, EVERY 8 HOURS, First [...] Ira South RN) 0821 (Given - Provider: Cayr Harper) 5 mg, Oral, 2 TIMES DAILY, First dose on Thu09/28/18 at 2100 metoprolol tartrate (LOPRESSOR) tablet 50 mg 2149 (Given - Provider: Ira South RN) 0821 (Given - Provider: Cary Harper) 50 mg, Oral, 2 TIMES DAILY, First dose on Thu09/28/18 at 2100 midazolam (VERSED) injection 2 mg (COMPLETED) 1207 (Given - Provider: Isis Rivera, JOSE)1210 (Given - Provider: Isis Rivera RN) 2 [...] RN)1319 (Anesthesia Volume Adjustment - Provider: Mattie M Angelats, AUTOMOBILE DESIGNER HOME HEALTH SPECIALIST)1432 (Anesthesia Volume Adjustment - Provider: Mattie Marmolejo, AUTOMOBILE DESIGNER HOME HEALTH SPECIALIST) at 25 mL/hr, Intravenous, CONTINUOUS, IF patient NOT on dialysis., Pre- procedure, Starting Thu09/28/18 at 1115, Until Thu09/28/18 at 1457 lactated ringers infusion 1831 (New Bag - Provid er: Vandana Smith RN) 0039 (Rate/Dose Verify - Provider: Griselda Dinero, JOSE)0248 (New Bag - Provider: Griselda Dinero RN)1202 [...] mg 2248 (Given - Provider: Ira South, RN) 5 mg, Oral, EVERY 3 HOURS PRN, other, pa in control or improvement in physical function. Hold dose for analgesic side effects., Starting Thu09/28/18 at 1751, Notify provider to assess for uncontrolled p ain or analgesic side effects. Hold whil e on MARKETING EXECUTIVE or with regular IV opioid dosing. Maximum total is 40 mg in 24 hours., Post-procedure sodium chloride (PF) 0.9% PF flush 3 mL 3 mL, Intracatheter, EVERY 1 HOUR PRN, l ine flush, for peripheral IV flush post IV meds, Starting Thu09/28/18 at 1751, Post-procedure documented in this encounter Care Teams Distribution Center Associate Relationship Specialty Start Date End Date [facility], [facility] PCP - General 05/12/[address] [place] [address] documented as of this encounter
--- OUTSIDE RECORDS SUMMARY | 2022-07-31 13:58 | XMS_ITS | Encounter Summary ---
:1940 Author Organization [place] Address [facility] [place] [address] Care Team Providers Name Role Phone [facility], [facility] Primary Care Provider [phone] Encounter Details Date Type Department Care Team Description 10/21/[address] [facility] Vascular Sophie piper, Juan Nava MD Clinic [place] [address] [place] [address] [place] [address] [phone] Social History Tobacco Use Types Packs/Day Years [...] REPAIR WITH [employer] Location of surgery: [facility] Date and time of surgery: 11/05/18 @ 8:30AM Surgeon: DR. VÁSQUEZ AND DR. GARVIN Pre-Op Appt Date: PT TO SCHEDULE AT [facility] Post-Op Appt Date: PT TO SCHEDULE Packet sent out: MAILED 10/25/18 Pre-cert/Authorization completed: Yes Date: 10/28/18 I have notified IR, ICU and anesthesia about this case. I have verified that anesthesia agrees with 3 day Eliquis hold because pt will need spinal drain. Aruna Simmons, Controller Instructor ERCIAL ACCOUNTANT Telephone Encounter - Aruna Simmons - 10/25/2018 4:25 PM CST Spoke with daughter, Raquel, and she will have her dad come on 11/03/18 @ 9:00 to the [facility] lab for type and screen. I called the lab to make the appt for them. Aruna Simmons, Controller Instructor ERCIAL ACCOUNTANT Telephone Encounter - Sondra Johnson RN - 10/22/2018 12:50 PM CST RN called [facility] Blood Bank and informed them of pt's upcoming surgery and request for 2 units of packed RBCs are available. Discussed with Blood Bank pt has RBC antibodies. Per Pam in blood bank, pt needs to have a type and screen drawn here at [facility] 48 hours prior to procedure. Pam stated pt could makea lab appointment on 11/03/18 or morning of 11/04/18. Pt's lab from 09/28/18 cannot be used as reference. Order entered for ABO/type and screen. Will route back to surgery scheduling. SHASTA Winkler, RN ERCIAL ACCOUNTANT Telephone Encounter - Aruna Simmons - 10/21/2018 [...] prior to the upcoming surgery. Aruna Simmons, Controller Instructor ERCIAL ACCOUNTANT documented in this encounter Plan of Treatment Not on filedocumented as of this encounter Results (ABNORMAL) ABO/Rh type and screen (11/03/2018 9:10 AM COMMERCIAL ACCOUNTANT) [facility] gist Method Time Signature Units Ordered 4 11/05/2018 [place] 1:30 PM [facility] ABO O 11/03/2018 [place] 10:15 AM [facility] RH(D) Pos [facility] Antibody Pos (A) 11/03/2018 [place] Screen 10:15 AM [facility] Test Valid [place] 11/03/2018 [place] Only At [facility] 9:31 AM [facility] Specimen 11/06/2018 11/03/2018 [place] Expires 9:31 AM [facility] Crossmatch Red Blood 11/03/2018 [place] Cells 9:31 AM [facility] Specimen Anatomical Collection Method Collection Time Receive d Time (Source) Location / / Volume Laterality Blood specimen 11/03/2018 9:10 AM 019 9:19 (specimen) COMMERCIAL ACCOUNTANT AM COMMERCIAL ACCOUNTANT Juan Vásquez MD LAB - BLOOD BANK TEST ORDER Performing Organization Address City/State/ZIP Code Phon e Number M [facility] [address] [place] [address] [phone] [facility] [address] [place] [address] [address], [facility] [phone] documented in this encounter Visit Diagnoses Diagnosis Abdominal aortic aneurysm (AAA) without rupture - Primary Encounter for pre-operative laboratory t esting Preoperative examination, unspecified documented in this encounter Additional Health Concerns Infection Onset Date Last Indicated Resolved Time MRSAComment: Positive 02/17/11 and 09/22/12 11/05/2018 019 Negatives 05/03/14 (HE), 12/01/14 (HE) documented as of this encounter Care Teams Lyft Driver Relationship Specialty Start Date End Date [facility] PCP - General 05/12/17 [address] [place] [address] documented as of this encounter
--- OUTSIDE RECORDS SUMMARY | 2022-07-31 13:58 | XMS_ITS | Encounter Summary ---
:1940 Author Organization [place] Address [address] [facility] [place] [address] Care Team Providers Name Role Phone [facility], [facility] Primary Care Provider [phone] Reason for Visit Reason Comments Consult U/S done 05/17/2018 Encounter Details Date Type Department Care Team Description 06/03/2018 Office Visit [facility] Juan Lewis aortic Surgery Clinic MD Elijah aneurysm (AAA) without [place] [id number] [place] rupture (H) (Primary [address]) [address] [place] [address] [place], [place] [phone] [address] (Work) [phone] Social History Tobacco Use Types Packs/Day Years Used Date Smoking Tobacco: Former Smokeless Tobacco: Never Tobacco Cessation: Counseling Given: [...] Primary documented in this encounter Care Teams Finance Analyst Relationship Specialty Start Date End Date [facility], [facility] PCP - General 05/12/[address] [place], [place] [id number] documented as of this encounter
--- OUTSIDE RECORDS SUMMARY | 2022-07-31 13:58 | XMS_ITS | Encounter Summary ---
:1940 Author Organization [place] Address [address] [facility] [place] [address] Care Team Providers Name Role Phone [facility], [facility] Primary Care Provider [phone] Reason for Referral Diagnostic Imaging CT Scan - Closed Specialty Diagnoses / Procedures Referred By Contact Refer red To Contact Diagnoses Abdominal aortic aneurysm Juan Lewis MD Procedures CTA Abdomen Pelvis with Contrast [address] [place] [address] Referral ID Status Reason Start Date Expiration Date Visits Requ ested Visits Authorized [id number] Closed 06/03/2018 06/03/2019 1 1 Encounter Details Date Type Department Care Team Description 06/03/2018 Orders Only [facility] Juan Lewis Abdompepe l aortic Vascular Clinic Félix Nava MD aneurysm (H) (Primary [address] ) [address] [place] [address] [place] [id number] Social History Tobacco Use Types Packs/Day Years [...] pture documented in this encounter Care Teams Dispatch Associate Relationship Specialty Start Date End Date [facility], [facility] - General 05/12/[address] [place] [address] documented as of this encounter
--- OUTSIDE RECORDS SUMMARY | 2022-07-31 13:58 | XMS_ITS | Encounter Summary ---
:1940 Author Organization [place] Address [facility] [place] [address] Care Team Providers Name Role Phone [facility], [facility] Primary Care Provider [phone] Reason for Visit Reason Comments RECHECK pt would like to discuss Encounter Details Date Type Department Care Team Description 07/01/2018 Office Visit [facility] Juan Lewis aortic Surgery Clinic MD Elijah aneurysm (AAA) without [place] [address] rupture (H) (Primary [address]) [address] [place] [address] [place], [place] [phone] [address] (Work) [phone] Social History Tobacco Use Types Packs/Day Years [...] Primary documented in this encounter Care Teams Supercalender Operator Relationship Specialty Start Date End Date [facility], [facility] PCP - General 05/12/[address] [place] [address] documented as of this encounter
--- OUTSIDE RECORDS SUMMARY | 2022-07-31 13:58 | XMS_ITS | Encounter Summary ---
:1940 Author Organization [place] Address [address] [place] [address] Care Team Providers Name Role Phone [facility] Primary Care Provider [phone] Encounter Details Date Type Department Care Team [...] on filedocumented in this encounter Care Teams Multiple Wire Sawyer Relationship Specialty Start Date End Date [facility] - General 05/12/[address] [place] [address] documented as of this encounter
--- OUTSIDE RECORDS SUMMARY | 2022-07-31 13:58 | XMS_ITS | Encounter Summary ---
:1940 Author Organization [place] Address [facility] [place] [address] Care Team Providers Name Role Phone Clinic, [facility] Primary Care Provider [phone] Reason for Visit Reason Onset Date Comments Assistant Press Operator 11/23/2017 Encounter Details Date Type Department Care Team Description 11/23/2017 Telephone [facility] Heart Erica [place], Assistant Press Operator Clinic [place] RN [address] [facility] [address] [place] [address] Social History Tobacco Use Types Packs/Day Years Used Date Smoking Tobacco: Former Smokeless Tobacco: Never Comments: quit 1985 Alcohol Use Standard Drinks/Week Comments Yes 0 (1 standard drink = 0.6 oz pure alcoho l) 10 per week Sex Assigned at Date Recorded Not on file documented as of this encounter Miscellaneous Notes Telephone Encounter - Olive Saldana, JOSE - 11/27/2017 4:02 PM SENIOR QUALITY CONTROL INSPECTOR Call to daughter; Ed was seen again in the ED on 11-15-17, 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 Eliquis was started by Dr Quintanilla/ Eusebia OR QUALITY CONTROL INSPECTOR Telephone Encounter - Taran Lugo MD - [...] if he is on one. Thanks, qp OR QUALITY CONTROL INSPECTOR Telephone Encounter - Olive Saldana RN - 11/23/2017 2:47 PM SENIOR QUALITY CONTROL INSPECTOR Call from daughterRaquel. States her dad wore a ZioPatch ordered by Dr Lugo to assess AF burden (ischemic/infarct areas seen in the brains). Daughter states the monitor was worn for 4 days (preferred2 weeks); it fell off she feels d/t the hair on his chest. Will note to Dr Lugo to advise re: havinganother placed. Drake OR QUALITY CONTROL INSPECTOR documented in this encounter Plan of Treatment Not on filedocumented as of this encounter Visit Diagnoses Not on filedocumented in this encounter Care Teams Biophysics Scientist Relationship Specialty Start Date End Date [facility], [facility] PCP - General 05/12/[address] [place] [address] documented as of this encounter
--- OUTSIDE RECORDS SUMMARY | 2022-07-31 13:58 | XMS_ITS | Encounter Summary ---
:1940 Author Organization [place] Address [address] [facility] [place] [address] Care Team Providers Name Role Phone Clinic, [facility] Primary Care Provider [phone] Reason for Visit Reason Onset Date Comments Medication Question 05/24/2018 Encounter Details Date Type Department Care Team Description 05/24/2018 Telephone [facility] Juan Lewis on Question Vascular Clinic Félix Nava MD [address] [place] [address] [address] [place] [address] (Wo rk) Social History Tobacco Use Types [...] Additional comments: Please call Raquel his daughter [phone] Phone number to reach patient: Home number on file [phone] (home) Best Time: anytime Can we leave a detailed message on this number? YES Serena Almaguer MA documented in this encounter Plan of Treatment Not on filedocumented as of this encounter Visit Diagnoses Not on filedocumented in this encounter Care Teams Bung Dropper Relationship Specialty Start Date End Date Bandar, Kehinde [place] PCP - General 05/12/[address] [place] [address] documented as of this encounter
--- OUTSIDE RECORDS SUMMARY | 2022-07-31 13:59 | XMS_ITS | Encounter Summary ---
:1940 Author Organization [place] Address [address] [place] [address] Care Team Providers Name Role Phone Clinic, [facility] Primary Care Provider [phone] Reason for Visit Reason Comments Transient Ischemic Attack Encounter Details Date Type Department Care Team Description 11/14/2017 - [facility] [address] [place] [address] Transient cerebral ischemia, unspecified type (Primary Dx); 11/15/2017 [facility] Jamie Bryan MD [address] [place] [address] Weakness on right side of face; Dept Uncontrolled hypertension [address] [place] [address] Social History Tobacco Use Types [...] Comments Blood Pressure 157/73 11/15/2017 11:35 AM [facility] Pulse 54 11/14/2017 11:13 PM [facility] Temperature 35.8 ??C (96.5 ??F) 11/15/2017 11:35 AM [facility] Respiratory Rate 18 11/15/2017 11:35 AM [facility] Oxygen Saturation 97% 11/15/2017 11:35 AM [facility] Inhaled Oxygen Concentration - - Weight 88.9 kg (196 lb) 11/15/2017 2:04 AM [facility] Height 177.8 cm (5' 10) 11/15/2017 2:04 AM [facility] Body Mass Index 28.12 11/15/2017 2:04 AM [facility] documented in this encounter Discharge Summaries Lui sAntonio Quintanilla MD - 11/15/2017 11:[address] [facility] Discharge Summary Name: Speedy Hendricks Date of : 1940 Age: [age] year old Date of Discharge: 11/15/2017 Date of Admission: 11/14/2017 Primary Care Provider: [facility] Discharge Physician: Luis Antonio Quintanilla MD Discharging [...] with NOAC. I also spoke with his Camera Tuning Engineer (Dr. Wilson) who agreed with starting [...] 50 Minutes. Luis Antonio Quintanilla MD Pager: [phone] [facility] documented in this encounter Medications at Time [...] - 11/15/2017 2:19 AM CST RT Note MD ordered EKG. EKG performed and placed in patient's chart. Samantha Vergara NUTRITION SERVICES WORKER [facility] documented in this encounter H&P Notes Jamie Gates MD - 11/15/2017 1:[address] [facility] Hospitalist Admission Note Name: Speedy Hendricks Date of : 1940 Age: [age] year old Date of admission: 11/14/2017 Primary care provider: Kehinde Portillo Chief Complaint: Facial droop, confusion Assessment and [...] -permissive HTN -monitor for recurrence of symptoms -PT/OT/COMPUTER LAB ASSISTANT -bedside swallow eval by RN, ok to [...] on amiodarone that was stopped by his academic assistant last week. Continues on 81mg aspirin and metoprolol 50mg bid. AC refused by patient/family due to enlarging AAA. -continue aspirin -continue metoprolol 50mg bid 4. Hx cardiac arrest: suspected due to mscontin buildup in setting of CKD. Hospitalized at [facility] 04/2017. Has been doing quite well since. 5. AAA: enlarging and up to 4.2cm when last checked. Due for repeat US next month. Father from AAA at age 61. 6. HTN: SBP elevated here initially to 185/99 now down to 140-150s in ED without intervention. 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 -continue metoprolol given arrhythmia issues -allow permissive HTN so hold his tow boat captain lasix and also terazosin for [...] GFRESTBLACK 49* BALDEMAR 8.9 Recent Labs Lab 11/14/172328 TROPI <0.015 INR 0.96 EKG: NSR Imaging: Prelim head CT, CTA head and neck appears ok with acute stroke and normal perfusion Jamie Gates MD Hospitalist [facility] [employer] [facility] documented in this encounter ED Notes Debra Araujo RN - 11/15/2017 12:[address] [facility] ED Nurse Handoff Report Speedy Hendricks [...] Independent. Lift room needed: No. Bariatric: No Government Service Executive Needed: No Isolation: No. Infection: Not Applicable. [...] is able to stand, good equal bilateral sewer separation designer, speech clear, gcs 15, AA&Ox3. Tests Performed: [...] chloride BOLUS (0 mLs Intravenous Stopped 11/14/17 7912) iopamidol (ISOVUE-370) solution 500 mL (120 mLs Intravenous Given 11/14/17 1888) Drips infusing: No For the majority of [...] answer questions for approximately 5 minutes at 2154. Symptoms have resolved, pt continues to c/o [...] headache. Tonight around 2154, the patient was eating dinner with one [...] hardware foot Thoracic surgery, right lung surgery [place] teeth extraction Family History: History reviewed. No [...] Screening for cardiovascular disease. Rate 58 bpm. CA interval 184 ms. QRS duration 82 ms. [...] focal stenosis of the left P2 segment CRUDE TESTER with a small trickle of contrast extending [...] Dr. Arriaga of the radiology service from [facility] regarding patient's presentation, findings, and plan of [...] observations and the provider's statements to me. [facility] Damian Mark MD 11/15/17 0149 [facility] documented in this encounter Miscellaneous Notes Plan [...] with: daughter OBSERVATION patient END time: 1210 [facility] Plan of Care - Mitra Joshi, OT - 11/15/2017 9:39 AM CST Problem: Patient Care Overview Goal: Plan of Care/Patient Progress Review OT: Orders received and chart reviewed. Discussed with treatment team including physical therapist. No Ip OT needs at this time. Will complete orders [facility] Plan of Care - Brittany Alcantar, PT - 11/15/2017 9:23 AM CST Problem: Patient Care Overview Goal: Plan of Care/Patient Progress Review PT: Received orders for evaluation and treatment; per chart review and Obs team, no inpatient therapy needs at this time (issues have resolved). Will complete therapy orders. [facility] Plan of Care - Ca Major, JOSE - 11/15/2017 8:00 AM CST Problem: Patient Care Overview Goal: Plan of Care/Patient Progress Review PRIMARY DIAGNOSIS: TIA R/O OUTPATIENT/OBSERVATION GOALS TO BE MET BEFORE DISCHARGE: 1. Orthostatic performed: No 2. Diagnostic testing complete & at baseline neurologic testing: Yes 3. Cleared by consultants (if involved): No 4. Interpretation of cardiac rhythm per technical inspector: SR 5. Tolerating adequate PO diet and medications: Yes 6. Return to near baseline physical activity or neurologic status: Yes Web Production Assistant Nurse Safe discharge environment identified: Yes Barriers to discharge: Yes Entered by: Ca Major 11/15/2017 Please review provider order for any additional goals. Nurse to notify provider when observation goals have been met and patient is ready for discharge. 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 [facility] [employer] [facility] Plan of Care - Debra Araujo RN - 11/15/2017 2:30 AM CST Problem: Patient Care Overview Goal: Plan of Care/Patient Progress Review Outcome: Improving ROOM # 226 Living Situation (if not independent, order SW consult): lives independently Facility name: salesperson corsets: daughters listed on chart Activity level at baseline: ind Activity level on admit: ind Patient registered to observation; given Patient Bill of Rights; given the opportunity to ask questions about observation status and their plan of care. Patient has been oriented to the observation room, bathroom and call light is in place. Discussed discharge goals and expectations with patient/family. [facility] [employer] [facility] documented in this encounter Plan of Treatment Not on filedocumented as of this encounter Procedures Procedure Name Priority Date/Time Associated Comments Diagnosis MR BRAIN W/O & W Routine 11/15/2017 9:15 AM Resul ts for this CONTRAST [facility] procedure are i n the results section. BASIC METABOLIC PANEL Routine 11/15/2017 6:37 AM Weakness on r ight Results for this [facility] side of face procedure are i n the results section. EKG 12-LEAD, TRACING Routine 11/15/2017 2:08 AM R esults for this ONLY [facility] procedure are i n the results section. CT HEAD W CONTRAST STAT 11/14/2017 11:58 Resul ts for this PM [facility] procedure are i n the results section. CTA HEAD NECK W STAT 11/14/2017 11:53 Results for this CONTRAST PM [facility] procedure are i n the results section. CT HEAD W/O CONTRAST STAT 11/14/2017 11:39 Res ults for this PM [facility] procedure are i n the results section. CBC WITH PLATELETS & Routine 11/14/2017 11:29 Res ults for this DIFFERENTIAL PM [facility] procedure are i n the results section. TROPONIN I Routine 11/14/2017 11:29 Results for this PM [facility] procedure are i n the results section. INR Routine 11/14/2017 11:29 Results for this PM [facility] procedure are i n the results section. PARTIAL THROMBOPLASTIN Routine 11/14/2017 11:29 R esults for this TIME PM [facility] procedure are i n the results section. BASIC METABOLIC PANEL Routine 11/14/2017 11:29 Re sults for this PM [facility] procedure are i n the results section. EKG 12-LEAD, TRACING STAT 11/14/2017 11:22 Res ults for this ONLY PM [facility] procedure are i n the results section. documented in this encounter Results MRI Brain w & w/o contrast (11/15/2017 9:15 AM [facility]) Anatomical Region Laterality Modality Head, SUBRAD MR NEURO, UMP MR NEURO, RAD MR Magnetic Resonance Specimen (Source) Anatomical Location Collection Method / Collectio n Time Received Time / Laterality Volume Impressions 11/15/2017 9:39 AM [facility] IMPRESSION: ?? 1. No evidence of acute infarct, mass, h emorrhage, or herniation. 2. Moderate diffuse parenchymal volume l oss and white matter changes likely due to chronic microvascular isch emic disease without significant change since prior. KATIA DAVID MD Narrative 11/15/2017 9:39 AM [facility] MRI BRAIN WITHOUT AND WITH CONTRAST ??11/15/2017 [...] distorted by artifact. No evidence of ac marcie intracranial hemorrhage. No mass effect or midline [...] distorted by artifact. No evidence of ac marcie intracranial hemorrhage. No mass effect or midline [...] (ABNORMAL) Basic metabolic panel (11/15/2017 6:37 AM [facility]) Analysis Performed At Patho logist Time Signature Sodium 141 133 - 144 11/15/2017 [facility] mmol/L 7:04 AM [facility] Potassium 4.1 3.4 - 5.3 11/15/2017 [facility] mmol/L 7:04 AM [facility] Chloride 109 94 - 109 11/15/2017 [facility] mmol/L 7:04 AM [facility] Carbon Dioxide 25 20 - 32 11/15/2017 [facility] mmol/L 7:04 AM [facility] Anion Gap 7 3 - 14 11/15/2017 [facility] mmol/L 7:04 AM [facility] Glucose 105 (H) 70 - 99 11/15/2017 [facility] mg/dL 7:04 AM [facility] Urea Nitrogen 33 (H) 7 - 30 11/15/2017 [facility] mg/dL 7:04 AM [facility] Creatinine 1.51 (H) 0.66 - 11/15/2017 [facility] 1.25 mg/dL 7:04 AM [facility] GFR Estimate 45 (L) >60 11/15/2017 [facility] mL/min/1.7 7:[address] Comment: Non GFR Calc GFR Estimate If 55 (L) >60 mL/min/1.7m2 11/15/2017 7:04 A [facility] Comment: GFR Calc Calcium 8.8 8.5 - 10.1 mg/dL 11/15/2017 7:04 AM [facility] Specimen Anatomical Collection Method Collection Time Receive d Time (Source) Location / / Volume Laterality Blood specimen 11/15/2017 6:37 AM 018 6:38 (specimen) [facility] AM [facility] Jamie Gates MD LAB - BLOOD ORDERABLES Performing Organization Address City/State/ZIP Code Phon e Number [facility] [address] [place], [place] [address] [facility] [address] [place] [address] [phone] EKG 12-lead, tracing only (11/15/2017 2:08 AM [facility]) [facility] gist Method Time Signature Interpretation ECG Click View RADIOLOGY Image link RESULTS to view waveform and result Specimen (Source) Anatomical Collection Method Collection Time Re ceived Time Location / / Volume Laterality 11/15/2017 2:08 AM [facility] Jamie Gates MD ECG ORDERABLES Performing Organization Address City/[facility]/ZIP Code Phon e Number RADIOLOGY RESULTS CT Head w Contrast (11/14/2017 11:58 PM [facility]) Anatomical Region Laterality Modality Head, NEURO, SUBRAD CT NEURO, SUBRAD CT NEURO, UMP CT Computed Tomography NEURO, RAD CT Specimen (Source) Anatomical Location Collection Method / Collectio n Time Received Time / Laterality Volume Impressions 11/15/2017 8:18 AM [facility] IMPRESSION: 1. Patent arteries in the neck without e vidence of dissection. Atherosclerotic calcifications at the ca rotid bifurcations bilaterally without significant stenosis by NASCWalter argueta. Mild narrowing at the origin of [...] KATIA DAVID MD Narrative 11/15/2017 8:18 [address] [facility] CT ANGIOGRAM OF THE HEAD AND NECK [...] CTA Angiogram Head Neck (11/14/2017 11:53 PM [facility]) Anatomical Region Laterality Modality Head, SUBRAD CT NEURO, SUBRAD CT NEURO, UMP CT NEURO, Computed Tomography RAD CT Specimen (Source) Anatomical Location Collection Method / Collectio n Time Received Time / Laterality Volume Impressions 11/15/2017 8:18 AM [facility] IMPRESSION: 1. Patent arteries in the neck [...] KATIA DAVID MD Narrative 11/15/2017 8:18 AM [facility] CT ANGIOGRAM OF THE HEAD AND NECK [...] CT Head w/o Contrast (11/14/2017 11:39 PM [facility]) Anatomical Region Laterality Modality Head, SUBRAD CT NEURO, SUBRAD CT NEURO, P CT NEURO, Computed Tomography RAD CT Specimen (Source) Anatomical Location Collection Method / Collectio n Time Received Time / Laterality Volume Impressions 11/15/2017 8:18 AM [facility] IMPRESSION: ?? 1. No evidence of acute intracranial hem orrhage, mass, or herniation. 2. There is generalized atrophy of the b rain. White matter changes are present in the cerebral hemispheres that are consistent with small vessel ischemic disease in this age angela ent. I agree with the overnight preliminary r eport by the radiologist. KATIA DAVID MD Narrative 11/15/2017 8:18 AM [facility] CT SCAN OF THE HEAD WITHOUT CONTRAST [...] CT ORDERABLES Troponin I (11/14/2017 11:29 PM [facility]) P athologist Signature Troponin I ES <0.015 0.000 - 11/14/2017 [facility] 0.045 ug/L 11:53 PM [facility] Comment: The 99th percentile for upper reference range is 0.045 ug/L. ??Troponin values in the range of 0.045 - 0.120 ug/L may b e associated with risks of adverse clinical events. Specimen Anatomical Collection Method Collection Time Receive d Time (Source) Location / / Volume Laterality 11/14/2017 11:29 11/14/2017 PM [facility] 11:31 PM [facility] Damian Mark MD LAB - BLOOD ORDERABLES Performing Organization Address City/State/ZIP Code Phon e Number M [facility] [address] [place], [place] [address] [place] [address] [address] [place], [place] [address], [facility] [phone] Partial thromboplastin time (11/14/2017 11:29 PM [facility]) P athologist Signature PTT 30 22 - 37 sec 11/14/2017 [facility] 11:45 PM [facility] Specimen Anatomical Collection Method Collection Time Receive d Time (Source) Location / / Volume Laterality 11/14/2017 11:29 11/14/2017 PM [facility] 11:31 PM [facility] Damian Mark MD LAB - BLOOD ORDERABLES Performing Organization Address City/[facility] Code Phon e Number M [facility] [address] [place], [place] [address] [place] [address] [address] [place], [place] [address], [facility] [phone] INR (11/14/2017 11:29 PM [facility]) P athologist Signature INR 0.96 0.86 - 1.14 11/14/2017 [facility] 11:45 PM [facility] Specimen Anatomical Collection Method Collection Time Receive d Time (Source) Location / / Volume Laterality 11/14/2017 11:29 11/14/2017 PM [facility] 11:31 PM [facility] Damian Mark MD LAB - BLOOD ORDERABLES Performing Organization Address City/State/ZIP Code Phon e Number M [facility] [address] [place], [place] [address] [facility] [address] [place] [phone] (ABNORMAL) CBC with platelets differential (11/14/2017 11:29 PM [facility]) [facility] Method Time Signature WBC 6.1 4.0 - 11/14/2017 [facility] 11.0 11:34 PM [facility] 10e9/L [facility] RBC Count 4.23 (L) 4.4 - 5.9 11/14/2017 [facility] 10e12/L 11:34 [facility] Hemoglobin 13.7 13.3 - 11/14/2017 [facility] 17.7 g/dL 11:34 [facility] Hematocrit 41.0 40.0 - 11/14/2017 [facility] 53.0 % 11:34 [facility] MCV 97 78 - 100 11/14/2017 [facility] fl 11:34 PM [facility] MCH 32.4 26.5 - 11/14/2017 [facility] 33.0 pg 11:34 [facility] MCHC 33.4 31.5 - 11/14/2017 [facility] 36.5 g/dL 11:34 [facility] RDW 12.9 10.0 - 11/14/2017 [facility] 15.0 % 11:34 [facility] Platelet Count 122 (L) 150 - 450 11/14/2017 [facility] 10e9/L 11:34 [facility] Diff Method Automated 11/14/2017 [facility] Method 11:34 [facility] % Neutrophils 57.3 % 11/14/2017 [facility] 11:34 [facility] % Lymphocytes 27.8 % 11/14/2017 [facility] 11:34 [facility] % Monocytes 11.3 % 11/14/2017 [facility] 11:34 [facility] % Eosinophils 3.1 % 11/14/2017 [facility] 11:34 [facility] % Basophils 0.3 % 11/14/2017 [facility] 11:34 [facility] % Immature 0.2 % 11/14/2017 [facility] Granulocytes 11:34 [facility] Nucleated RBCs 0 0 /100 11/14/2017 [facility] 11:34 [facility] Absolute 3.5 1.6 - 8.3 11/14/2017 [facility] Neutrophil 10e9/L 11:34 PM [facility] Absolute 1.7 0.8 - 5.3 11/14/2017 [facility] Lymphocytes 10e9/L 11:34 PM [facility] Absolute 0.7 0.0 - 1.3 11/14/2017 [facility] Monocytes 10e9/L 11:34 PM [facility] Absolute 0.2 0.0 - 0.7 11/14/2017 [facility] Eosinophils 10e9/L 11:34 PM [facility] Absolute 0.0 0.0 - 0.2 11/14/2017 [facility] Basophils 10e9/L 11:34 PM [facility] Abs Immature 0.0 0 - 0.4 11/14/2017 [facility] Granulocytes 10e9/L 11:34 PM [facility] Absolute 0.0 11/14/2017 [facility] Nucleated RBC 11:34 PM [facility] Specimen Anatomical Collection Method Collection Time Receive d Time (Source) Location / / Volume Laterality 11/14/2017 11:29 11/14/2017 PM [facility] 11:31 PM [facility] Damian Mark MD LAB - BLOOD ORDERABLES Performing Organization Address City/State/ZIP Code Phon e Number [place] [address] [address] [place] [address] [facility] [address] [phone] (ABNORMAL) Basic metabolic panel (11/14/2017 11:29 PM [facility]) Analysis Performed At Patho logist Time Signature Sodium 141 133 - 144 11/14/2017 [facility] mmol/L 11:53 PM [facility] Potassium 3.7 3.4 - 5.3 11/14/2017 [facility] mmol/L 11:53 PM [facility] Chloride 107 94 - 109 11/14/2017 [facility] mmol/L 11:53 PM [facility] Carbon Dioxide 26 20 - 32 11/14/2017 [facility] mmol/L 11:53 PM [facility] Anion Gap 8 3 - 14 11/14/2017 [facility] mmol/L 11:53 PM [facility] Glucose 103 (H) 70 - 99 11/14/2017 [facility] mg/dL 11:53 PM [facility] Urea Nitrogen 32 (H) 7 - 30 11/14/2017 [facility] mg/dL 11:53 PM [facility] Creatinine 1.67 (H) 0.66 - 11/14/2017 [facility] 1.25 mg/dL 11:53 PM [facility] GFR Estimate 40 (L) >60 11/14/2017 [facility] mL/min/1.7 11:[address] Comment: Non GFR Calc GFR Estimate If 49 (L) >60 mL/min/1.7m2 11/14/2017 11:53 PM [facility] Comment: GFR Calc Calcium 8.9 8.5 - 10.1 mg/dL 11/14/2017 11:53 PM [facility] Specimen Anatomical Collection Method Collection Time Receive d Time (Source) Location / / Volume Laterality 11/14/2017 11:29 11/14/2017 PM [facility] 11:31 PM [facility] Damian Mark MD LAB - BLOOD ORDERABLES Performing Organization Address City/State/ZIP Code Phon e Number [place] [address] [address] [place] [address] [place] [address] [phone] EKG 12 lead (11/14/2017 11:22 PM [facility]) [facility] gist Method Time Signature Interpretation ECG Click View RADIOLOGY Image link RESULTS to view waveform and result Specimen (Source) Anatomical Collection Method Collection Time Re ceived Time Location / / Volume Laterality 11/14/2017 11:22 PM [facility] Damian Mark MD ECG ORDERABLES Performing Organization Address City/State/ZIP [facility] Phon e Number RADIOLOGY RESULTS documented in [...] chloride BOLUS New Bag 11/14/2017 11:48 PM [facility] 80 mLs Intravenous, 1,000 mL, ONCE, On 11/14/17 at 2330, For 1 dose acetaminophen (TYLENOL) tablet 1,000 mg Given 11/15/2017 1:11 AM [facility] 1,000 mg 1,000 mg, Oral, ONCE, On 11/15/17 at 0054, For 1 dose, Maximum acetaminophen dose from all sources = 75 mg/kg/day not to exceed 4 gram acetaminophen (TYLENOL) tablet 650 mg Given 11/15/2017 6:11 AM [facility] 650 mg 650 mg, Oral, EVERY 4 HOURS PRN, mild pain, Starting on 11/15/17 at 0204, Alternate ibuprofen (if ordered) with acetaminophen. Maximum acetaminophen dose from all sources = 75 mg/kg/day not to exceed 4 grams/day. gadobutrol (GADAVIST) injection 10 mL Given 11/15/2017 8:30 AM [facility] 10 mLs 10 mL, Intravenous, ONCE, On 11/15/17 at 0805, For 1 dose, Supplied by, and administered by MRI. iopamidol (ISOVUE-370) solution 500 mL Given 11/14/2017 11:48 PM [facility] 120 mLs 500 mL, Intravenous, ONCE, On 11/14/17 at 2330, For 1 dose lisinopril (PRINIVIL/ZESTRIL) tablet 5 m g 5 mg, Oral, DAILY, First dose on 11/15/17 at 1102, Hold for SBP < 100 LORazepam (ATIVAN) injection 0.5-1 mg Given 11/15/2017 8:20 AM [facility] 0.5 mg 0.5-1 mg, Intravenous, ONCE, On [...] Recently Administered Medications Times are shown in [facility]. Scheduled Medication Order 11/13/2017 11/14/2017 11/15/2017 0.9% [...] 23 (Not Given - Provider: Ca Major, RN - Reason: Patient/family refused) 81 mg, Oral, DAILY, First dose on 11/15/17 at 0800 atorvastatin (LIPITOR) tablet 40 mg 1124 (Not Given - Provider: Ca Major, JOSE - Reason: Patient/family refused) 40 mg, Oral, [...] mg (COMPLETED) 0820 (Given - Provider: Ca aMjor RN) 0.5-1 mg, Intravenous, ONCE, 11/15/17 at [...] minutes.
documented in this encounter Care Teams Chili Powder Mixer Relationship Specialty Start Date End Date [facility], [facility] PCP - General 05/12/[address] [place] [id number] documented as of this encounter
--- OUTSIDE RECORDS SUMMARY | 2022-07-31 13:59 | XMS_ITS | Encounter Summary ---
:1940 Author Organization [place] Address [address] [place] [address] Care Team Providers Name Role Phone Clinic, [facility] Primary Care Provider [phone] Reason for Visit Reason Onset Date Comments Referral 05/14/2017 MTM Encounter Details Date Type Department Care Team Description 05/14/2017 Telephone [facility], Kehinde eagle ([facility]) Project [id number] [place] [address] [phone] (Wo rk) Social History Tobacco Use Types Packs/Day Years Used Date Smoking Tobacco: Former Comments: quit 1985 Alcohol Use Standard Drinks/Week Comments Yes 0 (1 standard drink = 0.6 oz pure alcoho l) 10 per week Sex Assigned at Date Recorded Not on file documented as of this encounter Miscellaneous Notes Telephone Encounter - America Herndon - 05/14/2017 10:56 AM CDT MTM referral from: Transitions of Care (recent hospital discharge or ED visit) MTM referral outreach attempt #1 on May 14, 2017 at 10:56 AM Outcome: Patient is not interested at this time because they are not a [place] patient, will route to MTM Pharmacist/Provider as an FYI. Thank you for the referral. Juanita Herndon MTM Coordinator documented in this encounter Plan of Treatment Not on filedocumented as of this encounter Visit Diagnoses Not on filedocumented in this encounter Care Teams Public Relations Account Supervisor Relationship Specialty Start Date End Date [facility], [facility] PCP - General 05/12/[address] [place] [address] documented as of this encounter
--- OUTSIDE RECORDS SUMMARY | 2022-07-31 13:59 | XMS_ITS | Encounter Summary ---
:1940 Author Organization [place] Address [address] [place] [address] Care Team Providers Name Role Phone Clinic, [facility] Primary Care Provider [phone] Reason for Visit Reason Onset Date Comments Previsit 11/10/[address] Fatuma ng--visit 11/11/17 Encounter Details Date Type Department Care Team Description 11/10/2017 Telephone [facility] Heart Ebony Arnold, Previsit (New patient Clinic Tram GARCIA for Dr Lugo--visit [address] [facility] 11/11/17) [facility] [address] [place] [address] Social History Tobacco Use Types [...] list to reflect what patient is taking. PEngler, RN AND SHOE LABORER documented in this encounter Plan of Treatment Not on filedocumented as of this encounter Visit Diagnoses Not on filedocumented in this encounter Care Teams Water Treatment Plant Operator Relationship Specialty Start Date End Date [facility], [facility] PCP - General 05/12/[address] [place] [address] documented as of this encounter
--- OUTSIDE RECORDS SUMMARY | 2022-07-31 13:59 | XMS_ITS | Encounter Summary ---
:1940 Author Organization [place] Address [address] [place] [address] Care Team Providers Name Role Phone Clinic, [facility] Primary Care Provider Reason for Referral - Closed Specialty Diagnoses / Procedures Referred By Contact Refer red To Contact Diagnoses Paroxysmal atrial fibrillation (H) Taran Lugo MD Procedures Zio Patch Monitor [address] [place] [address] Referral ID Status Reason Start Date Expiration Date Visits Requ ested Visits Authorized [id number] Closed 11/25/2017 11/25/2018 1 1 ERTY ECONOMIST Reason for Visit (Routine) - Closed Specialty Diagnoses / Procedures Referred By Contact Refer red To Contact Cardiology Procedures Zzrh Cardiac Test Rscc ZIOPATCH MONITOR [address] [address] [employer] [address] [place], [place] [address] Phone: Fax: Referral ID Status Reason Start Date Expiration Date Visits Requ ested Visits Authorized [id number] Closed 11/17/2017 11/17/2018 1 1 Encounter Details Date Type Department Care Team Description 11/17/2017 Hospital Encounter [facility] Taran Lugo Pa [facility] atrial Care [place] MD fibrillation (H) [address] [address] [place], [place] [phone] Social History Tobacco Use Types Packs/Day Years [...] Per EPIC and pt, pt's daughter called Brittney's nurse and they are aware of the situation. I called pt back and he did mail the monitor yesterday. We will see what shows up and see if Brittney would like him to redo the monitor or keep what he gets from the one mailed back. ERTY ECONOMIST Kiarra Rubalcava - 11/17/2017 3:49 PM CST Ziopatch heart monitor was set up. Patient stated that Dr. Quintanilla ordered the event monitor but Dr. Lugo wanted him to wear a ziopatch for 14 days. Patient was then set up with a ziopatch. ERTY ECONOMIST documented in this encounter Plan of Treatment Not on filedocumented as of this encounter Procedures Procedure Name Priority Date/Time Associated Diagnosis Comme nts ZIO PATCH HOLTER Routine 11/22/2017 Paroxysmal atrial Result s for this fibrillation (H) procedure a re in the results section . documented in this encounter Results Zio Patch Monitor (11/22/2017) Narrative [facility]ANT - 11/22/2017 [facility] [address] [place] [phone] 11/17/2017 Patient: ??Speedy Burris [place] Chart: [id number] : ??1940 Age: ??77 year old Sex: ??male Procedure: ??ZioPatch Monitor. Pneumatic Tester Mechanic performing hook-up: ??Kiarra Rubalcava Taran Gamboa MD CV CARDIAC SERVICES ORDERABL ES Performing Organization Address City/State/ZIP Code Phon e Number RADIANT documented in this encounter Visit Diagnoses Diagnosis Paroxysmal atrial fibrillation (H) Atrial fibrillation documented in this encounter Care Teams Tare Worker Relationship Specialty Start Date End Date [facility], [facility] PCP - General 05/12/[address] [place] [address] documented as of this encounter
--- OUTSIDE RECORDS SUMMARY | 2022-07-31 13:59 | XMS_ITS | Encounter Summary ---
:1940 Author Organization [place] Address [address] [place] [address] Care Team Providers Name Role Phone Clinic, [facility] Primary Care Provider [phone] Reason for Visit CV Testing - Closed Specialty Diagnoses / Procedures Referred By Contact Refer red To Contact Cardiology Diagnoses Transient cerebral ischemia, unspecified type Luis Antonio Quintanilla MD Rh Echo Rscc Procedures ECHO COMPLETE BUBBLE STUDY WITH OPTISON Echo Complete Bubble [address] [address] [place] [address] [address] [place] [address] Phone: Fax: Referral ID Status Reason Start Date Expiration Date Visits Requ ested Visits Authorized [id number] Closed 11/16/2017 11/16/2018 1 1 Encounter Details Date Type Department Care Team Description 11/17/2017 Hospital Encounter [facility] Luis Antonio Quintanilla [facility] MD [place] ischemia, unspecified Heart Care [address] [address] [place], [place] [address] [address] [place], [place] [phone] [address] (Work) [phone] Social History Tobacco Use Types Packs/Day Years [...] Re sults for this BUBBLE STUDY WITH TRUCK LEASING MANAGER ischemia, procedure are in OPTISON unspecified type the results section. documented in this encounter Results ECHO COMPLETE BUBBLE STUDY WITH OPTISON (11/17/2017 2:35 PM TRUCK LEASING MANAGER) Anatomical Region Laterality Modality Echocardiography Specimen (Source) Anatomical Collection Method Collection Time Re ceived Time Location / / Volume Laterality 11/17/2017 1:54 PM TRUCK LEASING MANAGER Narrative 11/17/2017 3:15 PM TRUCK LEASING MANAGER [id number]^ARNAUD^LUIS ANTONIO^PIPPA [facility] Echocardiography Laboratory [address] [place] [address] Name: SPEEDY MCDUFFIE : 1940 Study Date: 11/17/2017 01:54 PM Age: 77 yrs Gender: Male Patient Location: [facility] Reason For Study: , Transient cerebral i [...] note might be different from the original. [id number]^ARNAUD^LUIS ANTONIO^PIPPA [facility] Echocardiography Laboratory [address] [place] [address] Name: SPEEDY MCDUFFIE : 1940 Study Date: 11/17/2017 01:54 PM Age: 77 yrs Gender: Male Patient Location: [facility] Reason For Study: , Transient cerebral i [...] to 2mL with Given 11/17/2017 2:45 PM TRUCK LEASING MANAGER 3 mLs saline (OPTISON) diluted injection 3 mL 3 mL, Intravenous, ONCE, On Thu11/17/17 at 1445, For 1 dose, [facility] [id number] sodium chloride (PF) 0.9% PF flush 10 mL Given 11/17/2017 2:37 PM TRUCK LEASING MANAGER 10 mLs 10 mL, Intravenous, ONCE, On Thu11/17/17 at 1445, For 1 dose sodium chloride bacteriostatic 0.9 % flush 30 Given 2:37 PM TRUCK LEASING MANAGER 30 mLs mL 30 mL, Intravenous, ONCE, On Thu11/17/17 at 1445, For 1 dose documented in this encounter Care Teams Tapering Machine Operator Relationship Specialty Start Date End Date [facility], [facility] PCP - General 05/12/[address] [place] [address] documented as of this encounter
--- OUTSIDE RECORDS SUMMARY | 2022-07-31 13:59 | XMS_ITS | Encounter Summary ---
:1940 Author Organization [place] Address [address] [place] [address] Care Team Providers Name Role Phone [facility], [facility] Primary Care Provider [phone] Reason for Visit Reason Onset Date Comments Medication Question 05/13/2017 meds Encounter Details Date Type Department Care Team Description 05/13/2017 Telephone [facility] Heart Abimbola Brown M edication Question Clinic Tram GARCIA (meds) [address] [facility] [address] [place] [address] Social History Tobacco Use Types Packs/Day Years Used Date Smoking Tobacco: Former Comments: quit 1985 Alcohol Use Standard Drinks/Week Comments Yes 0 (1 standard drink = 0.6 oz pure alcoho l) 10 per week Sex Assigned at Date Recorded Not on file documented as of this encounter Miscellaneous Notes Telephone Encounter - Abimbola Brown, RN - 05/13/2017 11:07 AM CDT Pt Daughter Raquel called and states that med list sent home with pt on discharge has some errors. Called Raquel back and LM for her to call this credit underwriter back. JNelsonRN documented in this encounter Plan of Treatment Not on filedocumented as of this encounter Visit Diagnoses Not on filedocumented in this encounter Care Teams Cap Coverer Relationship Specialty Start Date End Date Clinic, [facility] PCP - General 05/12/17 [address] [place] [address] documented as of this encounter
--- OUTSIDE RECORDS SUMMARY | 2022-07-31 13:59 | XMS_ITS | Encounter Summary ---
:1940 Author Organization [place] Address [address] [place] [place] [address] Care Team Providers Name Role Phone [facility], [facility] Primary Care Provider [phone] Reason for Referral - Closed Specialty Diagnoses / Procedures Referred By Contact Refer red To Contact Diagnoses Paroxysmal atrial fibrillation (H) Radha Galan MD Procedures Zio Patch Monitor [address] [place] [address] Referral ID Status Reason Start Date Expiration Date Visits Requ ested Visits Authorized [id number] Closed 11/25/2017 11/25/2018 1 1 RAL CAR CHAUFFEUR Reason for Visit Reason Comments Atrial Fib new Dx - Closed Specialty Diagnoses / Procedures Referred By Contact Refer red To Contact Diagnoses Paroxysmal atrial fibrillation (H) Radha Galan MD [address] [place] [address] Referral ID Status Reason Start Date Expiration Date Visits Requ ested Visits Authorized [id number] Closed 06/11/2017 06/11/2018 1 1 Encounter Details Date Type Department Care Team Description 11/11/2017 Office Visit [facility] Radah Galan [facility] atrial Heart Clinic Tram WELSH fibrillation (H) [address] [facility] [address] [facility] [address] [place] [address] [place] [address] [phone] Social History Tobacco Use Types Packs/Day Years [...] Comments Blood Pressure 146/78 11/11/2017 8:56 AM FUNERAL CAR CHAUFFEUR Pulse 54 11/11/2017 8:56 AM FUNERAL CAR CHAUFFEUR Temperature - - Respiratory Rate - - Oxygen Saturation - - Inhaled Oxygen Concentration - - Weight 88 kg (194 lb) 11/11/2017 8:56 AM FUNERAL CAR CHAUFFEUR Height 170.2 cm (5' 7.01) 11/11/2017 8:56 AM FUNERAL CAR CHAUFFEUR Body Mass Index 30.38 11/11/2017 8:56 AM FUNERAL CAR CHAUFFEUR documented in this encounter Progress Notes Radha [...] discharged on amiodarone and did see a packager over at [facility] for followup. He was recommended to wear a 24-hour Holter monitoring which demonstrated no evidence of atrial tachyarrhythmias. The patient checked his blood pressure twice a day and noticed heart rate in the 50s. He is doing quite well otherwise. Denies any shortness of breath, orthopnea, PND. His blood pressureseemed to be difficult to control and has seen a sports clerk for that as well as for his [...] to see us in a year in [facility] to his convenience, as the patient does live in that area. We will notify the patient regarding results of the Zio Patch monitor and have him follow up with you or my partners in a year from now. RADHA GALAN MD MT: SEMAJ Name: SPEEDY HENDRICKS Account: [id number] : 1940 Service Date: 11/11/2017 Document: [id number] RAL CAR CHAUFFEUR Radha Galan MD - 11/11/2017 8:45 AM CST HPI and Plan: See dictation [id number] Orders Placed This Encounter Procedures ??? EKG [...] ??? Smokeless tobacco: Never Used Comment: quit 1985 ??? Alcohol use Yes Comment: 10 per [...] Alert and Oriented x 3 CC Radha Gamboa MD [address] [place] [address] RAL CAR CHAUFFEUR documented in this encounter Plan of Treatment Not on filedocumented as of this encounter Procedures Procedure Name Priority Date/Time Associated Diagnosis Comme nts EKG 12-LEAD Routine 11/12/2017 10:13 Paroxysmal atrial Result s for this COMPLETE W/READ - AM FUNERAL CAR CHAUFFEUR fibrillation (H) proced ure are in CLINICS the results section. documented in this encounter Results Zio Patch Monitor (11/22/2017) Narrative [facility] - 11/22/2017 [facility] [address] [facility] [address] [facility] [address] 11/17/2017 Patient: ??Speedy Hendricks Chart: [id number] : ??1940 Age: ??77 year old Sex: ??male Procedure: ??ZioPatch Monitor. Hearing Dog Trainer performing hook-up: ??Kiarra Rubalcava Radha Gamboa MD CV CARDIAC SERVICES ORDERABL ES Performing Organization Address City/State/ZIP Code Phon e Number RAD[facility] EKG 12-lead complete w/read - Clinics (performed today) (11/12/2017 10:13 AM FUNERAL CAR CHAUFFEUR) Narrative This result has an attachment that is no t available. Radha Gamboa MD ECG ORDERABLES documented in this encounter Visit Diagnoses Diagnosis Paroxysmal atrial fibrillation (H) Atrial fibrillation Paroxysmal atrial fibrillation (H) Atrial fibrillation documented in this encounter Care Teams Beam Dyer Recessed Vat Relationship Specialty Start Date End Date [facility], [facility] PCP - General 05/12/[address] [place] [address] documented as of this encounter
--- OUTSIDE RECORDS SUMMARY | 2022-07-31 14:00 | XMS_ITS | Encounter Summary ---
:1940 Author Organization [place] Address [address] [place] [address] Care Team Providers Name Role Phone Primary Dr, Dipak WELSH Primary Care Provider Unavailable Encounter Details Date Type Department Care Team Description 11/29/2014 - Hospital Encounter [facility] Hang Mcclure phoebe stenosis, lumbar region, without neurogenic claudication; 12/01/2014 [facility] MD Koki AAA (abdominal aortic aneurysm) (H); [place] [facility] Diabetes mellitus (H); [address] [facility] Hypertension; Drive [address] BPH (benign prostatic hyperp lasia); [place], [place] 31 HLD (hyperlipidemia); [id number] [place], [place] Hyperglycemia, drug-induced; [phone] [id number] MRSA (methicillin resistant staph aureus ) culture positive Social History Tobacco Use Types Packs/Day Years Used Date Smoking Tobacco: Former Comments: quit 1984 Alcohol Use Standard Drinks/Week [...] 90.7 kg (200 lb) 11/29/2014 9:33 AM HEADING MAKER Height 180.3 cm (5' 11) 11/29/2014 9:33 AM HEADING MAKER Body Mass Index 27.89 11/29/2014 9:33 AM HEADING MAKER documented in this encounter Discharge Summaries Dimas [...] the office in about 2 weeks. Call [phone] if patient needs to schedule appointment. Dimas Hale PA-C Date: 12/01/2014 Time: 7:49 AM ING MAKER documented in this encounter Medications at Time [...] QHS Marcelino Finch MD 40 mg at 11/30/14 2038 ??? bisacodyl suppository 10 mg (DULCOLAX) 10 [...] CULTURE - Final result (09/22/2012 3:43 PM HEADING MAKER) [facility] Records Component Value Range SOURCE Nasal [...] Fowler MD Date: 12/01/2014 Time: 2:00 PM [facility] ING MAKER Dimas Hale - 12/01/2014 7:25 AM CST [...] Low Dias - 11/30/2014 2:35 PM CST COMMUNICATIONS ANALYST TREATMENT NOTE Name: Speedy Hendricks : 1940 Acupuncture Treatment Patient Type: Orthopedic Intervention Reason: Urinary Retention Patient complaint:: Unable to void Acupunture (Points):: Hayden 3, 4, 6, St 29 Risks and benefits discussed. Low Ramirez L.Ac. Date: 11/30/2014 Time: 2:36 PM Marcelino Hernandez MD - 11/30/2014 8:13 AM CST [facility] Medicine Service Progress Note Assessment/Plan: -Lumbar [...] Radiology Radiology Results: personally reviewed the impression ING MAKER Radha Grey - 11/29/2014 5:01 PM CST Acute Pain Management Team Consulting provider: Dr. Mcclure/Dr. Finch POD#:0 Procedure: LEFT L2-3, L3-4 POSTERIOR FUSION AND L3-4 REVISION DECOMPRESSION Home pain regimen: Opioid status: Tolerant Catano 7.5/325 mg-1 tabs q 4 -6 h prn-pt reports taking no more than 6 /day Oxycodone 2.5-5 mg po q 4 h prn_juse recent Rx due to increased nerve pain L leg Arthrotec 75 mg po bid prn Current pain regimen: Will change standard regiment of oxycodone scheduled and oxycodone prn to Catano 7.5/325 and prn oxycodone. Dilaudid IV bumps [...] tolerant , especially whenviewing Rx history of Catano 7.5/325, but he and family report him not taking more than 6 tablets perday of Catano 7.5/325, and have new Rx for oxycodone, but reports only taking 2.5 mg dose at a time. He is very sedated now, and will start out conservatively, not knowing exactly how much Catano he was taking at home. Pt and family reported he is very sensitive to oxycodone, but does well on Catano. Assessment/Plan: Catano 7.3/325 1- tablet every 4 hours Oxycodone -2.5 -5 mg po q 4 h prn BTP Discussed with Dr. Finch Will follow pt Radha Grey RPh 11/29/2014 5:02 PM ING MAKER Marcelino Finch MD - 11/29/2014 4:45 PM CST [facility] Medicine Service Progress Note Assessment/Plan: -Lumbar [...] Radiology Radiology Results: personally reviewed the impression ING MAKER Saman Bernard - 11/29/2014 10:38 AM CST [facility]) Hopes: Pt hopes to have his leg pain stop after surgery. Needs: Pt needs support of family. Resources: pt has his spouse and several family members in the room with him as resources and support. Additional Notes: pt joked with this lozenge dough mixer about Gaines's Day and Saint Yonatan's Day; to thischaplain, having a sense of humor is an additional resource for this patient. Prayer declined, visitonly. Follow up: None planned. Spiritual care upon request. ING MAKER documented in this encounter H&P Notes Hang Mcclure - 11/29/2014 10:46 AM CST The patient's history has been reviewed and there are no pertinent changes ING MAKER documented in this encounter Miscellaneous Notes Op [...] was seen in the preop area of [facility] today. Low back was marked and [...] two 60 mm rods. The system was rubberitRH 3DX. We decorticated the facet joints on [...] the instrumentation. All instrumentation was tightened to ironing pleater's specifications. We then closed the deep fascia [...] used during this case Medtronic TSRH 3DX ING MAKER documented in this encounter Plan of Treatment Not on filedocumented as of this encounter Procedures Procedure Name Priority Date/Time Associated Diagnosis Comme nts CROSSMATCH RED CELLS Routine 12/02/2014 10:40 Res ults for this AM HEADING MAKER procedure are i n the results section. CROSSMATCH RED CELLS Routine 12/02/2014 10:40 Res ults for this AM HEADING MAKER procedure are i n the results section. XR LUMBAR SPINE PORT Routine 11/29/2014 1:38 Spinal stenosis, Results for this 2/3 VIEWS PM HEADING MAKER lumbar region, procedure are in without neurogenic the resul ts claudication section. XR SURGERY CHRIS FLUORO Routine 11/29/2014 1:37 Spinal stenosis , Results for this GREATER THAN 5 MIN PM HEADING MAKER lumbar region, procedu re are in without neurogenic the resul ts claudication section. RED CELL ANTIGEN Routine 11/29/2014 10:17 Results for this TYPING NON ABO AM HEADING MAKER procedure are in the results section. ANTIBODY Routine 11/29/2014 10:17 Results for this IDENTIFICATION AM HEADING MAKER procedure are in the results section. EKG CARDIAC - HIM SCAN 11/29/2014 documented in this encounter Results Crossmatch red cells (12/02/2014 10:40 AM HEADING MAKER) [facility] Method Time Signature Crossmatch COMPATIBLE 12/02/2014 BLOOD BANK 10:40 AM HEADING MAKER Unit ABO/RH O Pos 12/02/2014 BLOOD BANK 10:40 AM HEADING MAKER Unit Number [id number] 12/02/2014 BLOOD BANK 10:40 AM HEADING MAKER Status Released 12/02/2014 BLOOD BANK 10:40 AM HEADING MAKER Component Red Blood 12/02/2014 BLOOD BANK Cells 10:40 AM HEADING MAKER Product Code [id number] 12/02/2014 BLOOD BANK 10:40 AM HEADING MAKER Specimen (Source) Anatomical Location Collection Method / Collectio n Time Received Time / Laterality Volume Hang Mcclure MD LAB - BLOOD BANK PRODUCT ORD ER Performing Organization Address [facility] Phon e Number [facility] BLOOD BANK [address] [place] [address] BLOOD BANK [address] [facility] [place] [place] [address] Crossmatch red cells (12/02/2014 10:40 AM HEADING MAKER) [facility] gist Method Time Signature Crossmatch COMPATIBLE 12/02/2014 BLOOD BANK 10:40 AM HEADING MAKER Unit ABO/RH O Pos 12/02/2014 [facility] BLOOD BANK 10:40 AM HEADING MAKER Unit Number [id number] 12/02/2014 BLOOD BANK 10:40 AM HEADING MAKER Status Released 12/02/2014 BLOOD BANK 10:40 AM HEADING MAKER Component Red Blood 12/02/2014 BLOOD BANK Cells 10:40 AM HEADING MAKER Product Code [id number] 12/02/2014 [facility] BLOOD BANK 10:40 AM HEADING MAKER Specimen (Source) Anatomical Location Collection Method / Collectio n Time Received Time / Laterality Volume Hang Mcclure MD LAB - BLOOD BANK PRODUCT ORD ER Performing Organization Address [facility] Phon e Number [facility] BLOOD BANK [address] [place] [address] [address] [place] [address] XR Lumbar Spine Port 2/3 Views (11/29/2014 1:38 PM HEADING MAKER) Anatomical Region Laterality Modality Spine Other Specimen (Source) Anatomical Location Collection Method / Collectio n Time Received Time / Laterality Volume Narrative 11/29/2014 1:51 PM HEADING MAKER XR LUMBAR SPINE 2 OR 3 VWS [...] Fluoro G/T 5 Min (11/29/2014 1:37 PM HEADING MAKER) Anatomical Region Laterality Modality Abdomen/Pelvis Other Specimen (Source) Anatomical Location Collection Method / Collectio n Time Received Time / Laterality Volume Narrative 11/29/2014 1:37 PM HEADING MAKER Please see the Radiology Report for result for body part of interest. Procedure Note Provider, Historical - 03/23/2021Formatt ing of this note might be different from the original. Please see the Radiology Report for resu lt for body part of interest. Hang Mcclure MD IMG DIAGNOSTIC IMAGING ORDER BRAYDEN Antibody identification (11/29/2014 10:17 AM HEADING MAKER) Patholo gist Method Time Signature Antibody > 3hr for 11/29/2014 BLOOD BANK Identification more 1:34 PM HEADING MAKER blood;Ant i-Rosa Specimen Anatomical Collection Method / Collection Time Recei fany Time (Source) Location / Volume Laterality Blood specimen Venipuncture / 11/29/2014 10:17 015 1:34 (specimen) Unknown AM HEADING MAKER PM HEADING MAKER Hang Mcclure MD LAB - BLOOD BANK TEST ORDER Performing Organization Address City/State/ZIP Code Phon e Number [facility] BLOOD BANK [address] [place] [address] BLOOD BANK [address] [place] [address] Red Cell Antigen Typing Non ABO: (11/29/2014 10:17 AM HEADING MAKER) P athologist Signature K Antigen Type Negative 11/29/2014 BLOOD BANK 1:16 PM HEADING MAKER Specimen Anatomical Collection Method / Collection Time Recei fany Time (Source) Location / Volume Laterality Blood specimen Venipuncture / 11/29/2014 10:17 015 1:16 (specimen) Unknown AM HEADING MAKER PM HEADING MAKER Narrative [facility] BLOOD BANK - 11/29/2014 1:16 PM HEADING MAKER K Antigen Hang Mcclure MD LAB - BLOOD BANK TEST ORDER Performing Organization Address City/State/ZIP Code Phon e Number [facility] BLOOD BANK [address] [place] [address] BLOOD BANK [address] [place] [address] EKG CARDIAC - HIM SCAN (11/29/2014) Specimen [...] aureus documented in this encounter Care Teams Spring Fitter Relationship Specialty Start Date End Date Primary Dipak Kasper MD PCP - General 09/21/1204/18 documented as of this encounter
--- OUTSIDE RECORDS SUMMARY | 2022-07-31 14:00 | XMS_ITS | Encounter Summary ---
:1940 Author Organization [place] Address [address] [place] [address] Care Team Providers Name Role Phone Primary Dipak Kasper MD Primary Care Provider Unavailable Celina Coley Primary Care Provider [facility] Primary Care Provider [phone] Jon White MD Unavailable [phone] Ramiro Loco MD Unavailable Encounter Details Date Type Department Care Team Description 11/29/2014 Surgery - [facility] Hang Mcclure, [facility] OR [facility] [address] [place] [phone] [place] [address] [phone] (Wo rk) Social History Tobacco Use Types [...] 90.7 kg (200 lb) 11/29/2014 9:33 AM OBSTETRICAL ANESTHESIOLOGIST Height 180.3 cm (5' 11) 11/29/2014 9:33 AM OBSTETRICAL ANESTHESIOLOGIST Body Mass Index 27.89 11/29/2014 9:33 AM OBSTETRICAL ANESTHESIOLOGIST documented in this encounter Plan of Treatment Not on filedocumented as of this encounter Visit Diagnoses Not on filedocumented in this encounter Additional Health Concerns Infection Onset Date Last Indicated Resolved Time MRSAComment: Positive 02/17/11 and 09/22/12 11/05/2018 019 Negatives 05/03/14 (HE), 12/01/14 (HE) documented as of this encounter Care Teams Hand Compositor Relationship Specialty Start Date End Date Primary Dipak Kasper MD PCP - General 09/21/1204/18 Celina Coley PCP - General Family Practice 05/05/17 05/11/[address] [address] Kehinde Portillo PCP - General 05/12/[address] [address] Jon White Assigned Surgical Provider 08/10/20 12/08/20 MD [address] [place] [address] Ramiro Loco MD Assigned Heart and 08/10/20 05/11/[address] [facility] Vascular Provider [place] [address] documented as of this encounter
--- OUTSIDE RECORDS SUMMARY | 2022-07-31 14:00 | XMS_ITS | Encounter Summary ---
:1940 Author Organization [place] Address [address] [place] [address] Care Team Providers Name Role Phone Primary DrDipak MD Primary Care Provider Unavailable Celina Coley Primary Care Provider [facility] Primary Care Provider [phone] Jon White MD Unavailable [phone] Ramiro Loco MD Unavailable Encounter Details Date Type Department Care Team Description 05/02/2014 Anesthesia - [facility] Zoltan Arizmendi MD [address] [place] [address] [phone] Social History Tobacco Use Types Packs/Day Years [...] documented as of this encounter Care Teams Java Architect Relationship Specialty Start Date End Date Primary Dipak Kasper MD PCP - General 09/21/1204/18 Celina Coley PCP - General Family Practice 05/05/17 05/11/[address] [address] Kehinde Portillo PCP - General 05/12/17 [place] [address] [place] [address] Jon White Assigned Surgical Provider 08/10/20 12/08/20 MD [address] [place], [place] [id number] Ramiro Loco MD Assigned Heart and 08/10/20 05/11/21 [address] [place] [address] Vascular Provider [place] [address] documented as of this encounter
--- OUTSIDE RECORDS SUMMARY | 2022-07-31 14:00 | XMS_ITS | Encounter Summary ---
:1940 Author Organization [place] Address [address] [place] [address] Care Team Providers Name Role Phone Primary Dipak Kasper MD Primary Care Provider Unavailable Celina Coley Primary Care Provider [facility] Primary Care Provider [phone] Jon White MD Unavailable Ramiro Loco MD Unavailable Gallito Gonzalez MD Unavailable Encounter Details Date Type Department Care Team Description 05/02/2014 Records - [facility] Cheryl Enriquez , RN [address] [address] Social History Tobacco Use Types [...] weeks for routine followup. Isra Fregoso M.D. [facility] Ghada Mattie Isis - 05/04/2014 3:42 PM CDT Orthopedics Discharge [...] - 05/07/2014 12:18 PM CDT Confirmed with [facility] acceptance of pt for PT and OT. Notified pt of [facility] Care PT and OT acceptance and informed pt and daughter agency will be contacting pt on Thursday, 05/08, to schedule appointment. MARIELA Dillon, [facility] Clinical Social Work Adventure Guide Luciano León - 05/07/2014 11:25 AM CDT [facility] Daily Progress Note Assessment/Plan: 1. Hypertension. [...] resolved, no tenderness or swelling. Isra Fregoso [facility] Date: 05/07/2014 Time: 10:42 AM Historical Provider - 05/06/2014 1:16 PM CDT [facility] met with pt re home health care services. Pt requested [facility] for PT and OT. [facility] contacted [facility] at [phone] making referral to this agency. Fax no is [phone]. [facility] will follow pt to discharge. MARIELA Dillon, [facility] Clinical Social Work Care Managedr Low Ramirez - 05/06/2014 12:12 PM CDT SENIOR PLANNING MANAGER TREATMENT NOTE Name: Speedy Hendricks : 1940 Acupuncture Treatment Patient Type: Orthopedic Intervention Reason: Pain Pre-session Pain ratin Post-session Pain ratin Patient complaint:: (R) foot pain Acupunture (Points):: Du 20, Yin watts, (R) Gb 20, (R) St 34, 36, (R) Sp 8, (R) Si 4 Low Ramirez L.Ac. Date: 05/06/2014 Time: 12:12 PM Luciano León S - 05/06/2014 11:44 AM CDT S Daily Progress Note Assessment/Plan: [...] to weight bear, equivocal SLR. Isra Fregoso [facility] Date: 05/06/2014 Time: 11:15 AM Lexie [...] Thank you for the consult. Eri Bah viktor 05/05/2014 4:46 PM Ca Plunkett - 05/05/2014 3:50 PM CDT SENIOR PLANNING MANAGER TREATMENT NOTE Name: Speedy Hendricks : 1940 [...] suspectedUTI. Report completed by: Mattie Urrutia MS, [facility] Date: 05/05/2014 Time: 2:39 PM Luciano León S - 05/05/2014 9:29 AM CDT [facility] Daily Progress Note Assessment/Plan: 1. Hypertension. [...] Date: 05/04/2014 Time: 3:35 PM Luciano León - 05/04/2014 2:20 PM CDT [facility] Daily Progress Note Assessment/Plan: 1. Hypertension. Continue [...] notify Care Management should needs arise. Cedric Borrego RETAIL ADVERTISING ACCOUNT EXECUTIVE, R&D LAB TECHNICIAN Lety Dickerson RN - 05/04/2014 12:00 PM [...] Luciano León - 05/03/2014 12:31 PM CDT [facility] Daily Progress Note Assessment/Plan: 1. Hypertension. [...] ,nare swab prior to antibiotic . Per Dorcas Harden/Al RN documented in this encounter H&P Notes [...] Revision L4 laminotomy. SURGEON: Dr. Tin Mcclure. PRINTED CIRCUIT BOARDS SOLDER LEVELER: Mahesh Rodgers PA-C, who was needed for [...] was seen in the preop area of [facility] today, 05/03/2014. The low back [...] 09:21:55 T 05/03/2014 12:31:48 R 05/03/2014 12:31:48 [id number] cc:LUCIANO GUERRA MD documented in this encounter [...] are negative for DVT. Luciano León MD IMG US ORDERABLES XR Foot Port Right 3 [...] evidence for acute fracture. Luciano León MD [facility] IMAGING ORDER [place]RAYDEN [...] COMPARISON: None. FINDINGS: Plantar calcaneal spur. The ranadll verna are intact. No evidence for fracture. Vascular calcifications. Luciano León MD [facility] ORDER [place] XR Chest Port [...] changes in cervical spine. Misha Weaver MD IM DIAGNOSTIC IMAGING ORDER BRAYDEN XR Lumbar Spine [...] level of L4 pedicle. Hang Mcclure MD IMG DIAGNOSTIC IMAGING ORDER [...] documented as of this encounter Care Teams Lingo Cleaner Relationship Specialty Start Date End Date Primary Dr, Dipak, PCP - General 09/21/1204/18 Celina Coley PCP - General Family Practice 05/05/17 05/11/[address] [address] Kehinde Portillo PCP - General 05/12/[address] [address] Jon White Assigned Surgical Provider 08/10/20 12/08/20 MD Aubrey [address] [place] [address] Ramiro Loco MD Assigned Heart and 08/10/20 05/11/21 [address] Vascular Provider [place] [address] Gallito Gonzalez, Assigned Heart and 09/29/21 Vascular Provider [address] [place] [address] documented as of this encounter
--- OUTSIDE RECORDS SUMMARY | 2022-07-31 14:00 | XMS_ITS | Encounter Summary ---
:1940 Author Organization [place] Address [address] [place] [address] Care Team Providers Name Role Phone Primary Dr, Unknown Primary Care Provider Unavailable Reason for Visit Reason Comments Back Pain Leg Pain Encounter Details Date Type Department Care Team Description [facility] [address] [place], [place] [phone] Acute low back pain 04/30/2017 Encounter [facility] Dilshad John MD [address] [place] [address] due to trauma [address] Provider, Historical [address] [place] [address] Social History Tobacco Use Types Packs/Day [...] John MD - 04/30/2017 2:09 PM CDT [facility] MEDICINE DISCHARGE SUMMARY Primary Care [...] COURSE: Nondisplaced insufficiency type sacral fractures - [facility] consult, patient of Dr Mcclure and his injury was described to him -no surgery inidcated - IV dilaudid. He also does ok with oral oxycodone and Stevenson - taper off IV opioids and optimize [...] MULTIVITAMIN Tab Dose: 1 tablet Generic drug: multivitamin,bu-gegt-miiyeweu 1 tablet, Oral, DAILY desonide 0.05 % [...] in 2-3 weeks or as needed at [facility]. Call our scheduling line at [phone] to make an appointment if you do [...] Comments Follow-up in: Within [facility] follow-[facility] Follow-up [...] EMR for more detailed significant labs, imaging, outplacement consultant notes etc. Total time spent on [...] Ca Plunkett - 04/30/2017 12:19 PM CDT CAUSTIC PREPARER TREATMENT NOTE Name: Speedy Burris Eladio : 1940 Acupuncture Treatment Patient Type: Medical Intervention Reason: Urinary Retention Patient complaint:: urinary retention Acupuncture (Points):: [place] (6,4,3); St 28, St 29, LI 4, BL 39, St 36, Sp 9, Ki 3, Batool 3 Checklist: Progress Note Completed, Consent Reveiwed Risks and benefits of acupuncture were discussed with patient. Consent for treatment was given. We thank you for the referral. Ca Plunkett L.Ac. Date: 04/30/2017 Time: 12:19 PM Rae Campo PA-C - 04/30/2017 11:08 AM CDT Orthopedic [...] much better. Daughter will transport. TANJA Rodríguez 04/30/2017 Rae Campo PA-C - 04/29/2017 4:26 [...] Plans: Nondisplaced insufficiency type sacral fractures - [facility] consult, patient of Dr Mcclure and his injury was described to him -no surgery inidcated - IV dilaudid. 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 BABY FORMULA WORKER Med List Medication Sig Note Last Dose [...] day. 04/27/2017 at just started 04/27 ??? multivitamin,nl-uxms-udzhnenr (COMPLETE MULTIVITAMIN) Tab Take 1 tablet by mouth daily. Past Week at Unknown time ??? pramipexole (MIRAPEX) 0.5 MG tablet Take 0.5 mg by mouth at bedtime. 04/26/2017 ??? terazosin (HYTRIN) 5 MG capsule Take 5 mg by mouth at bedtime. 04/26/2017 ??? [DISCONTINUED] acetaminophen (TYLENOL ARTHRITIS PAIN) 650 MG CR tablet Take by mouth. 04/28/2017:Received from: [facility] Received Sig: Takes 1 tablet as needed. ??? [DISCONTINUED] atorvastatin (LIPITOR) 40 MG tablet Take 40 mg by mouth. 04/28/2017: Received from: [facility] Received Sig: Take 1 tablet by mouth once daily. ??? [DISCONTINUED] desonide (DESOWEN) 0.05 % lotion Apply topically. 04/28/2017: Received from: [facility] Received Sig: Apply topically to affected area(s) 2 timesdaily. ??? [DISCONTINUED] diclofenac (VOLTAREN) 75 MG EC tablet Take 75 mg by mouth. 04/28/2017: Received from: [facility] Received Sig: Take 1 tablet by mouth 2 times daily with meals. ??? [DISCONTINUED] diflorasone (PSORCON) 0.05 % ointment Apply topically. 04/28/2017: Received from: [facility] Received Sig: Apply topically to affected area(s) once daily. ??? [DISCONTINUED] gabapentin (NEURONTIN) 300 MG capsule Start 1 pill QHS, increase up to TID prn 04/28/2017: Received from: [facility] ??? [DISCONTINUED] HYDROcodone-acetaminophen (NORCO) 7.5-325 mg per tablet Take 1 tablet by mouth. 04/28/2017: Received from: [facility] Received Sig: Take 1 tabletby mouth every 4 hours if needed for Pain May take 1.5 every 4 hours for severe pain ??? [DISCONTINUED] metoprolol tartrate (LOPRESSOR) 50 MG tablet Take 50 mg by mouth. 04/28/2017: Received from: [facility] Received Sig: Take 1 tablet by mouth 2 times daily. ??? [DISCONTINUED] miSOPROStol (CYTOTEC) 200 MCG tablet Take 200 mcg by mouth. 04/28/2017: Received from: [facility] Received Sig: Take 1 tablet by mouth 2 times daily with meals. ??? [DISCONTINUED] morphine (MS CONTIN) 15 MG 12 hr tablet Take 15 mg by mouth. 04/28/2017: Received from: [facility] Received Sig: Take 1 tablet by mouth 2 times daily ??? [DISCONTINUED] multivitamin (ONE A DAY) per tablet Take by mouth. 04/28/2017: Received from: [facility] Received Sig: take 1 tablet by oral route once daily with food ??? [DISCONTINUED] pramipexole (MIRAPEX) 0.5 MG tablet Take 0.5 mg by mouth. 04/28/2017: Received from: [facility] Received Sig: Take 1 tablet by mouth at bedtime. ??? [DISCONTINUED] terazosin (HYTRIN) 5 MG capsule Take 5 mg by mouth. 04/28/2017: Received from: [facility] Received Sig: Take 1 capsule by mouth at bedtime. Information source(s): Patient Summary of Changes to BABY FORMULA WORKER Med List New: dulcolax, calcium +d Discontinued: none Changed: diclofenac to qday; misoprostol to qday; mirapex to qhs; Patient was asked about OTC/herbal products specifically. BABY FORMULA WORKER med list reflects this. Based on the pharmacist???s assessment, the BABY FORMULA WORKER med list information appears reliable Patient appears compliant: Yes Allergies were reviewed, assessed, and updated with the patient. Medications currently not available for use during hospital stay. Family/Patient livestock sales representative states they will bring topicals to [facility]. Thank you for the opportunity to participate in the care of this patient. Jeanette Santana, PharmD 04/28/2017 8:59 AM Dilshad John MD - 04/28/2017 8:27 AM [...] point he can't function at home. - [facility] consult, patient of Dr Mcclure - YEVGENIY dillesaid. He also does ok with oral oxycodone and Stevenson - NPO, IVMF -Also has ordered for [...] AM CDT Admission History and Physical Speedy Hendricks, 1940, [facility] Acute low back pain due to trauma [M54.5] PCP: Kannan Nieto MD, Code status: Full Code Extended Emergency Contact Information Primary Emergency Contact: Sania Hendricks [address]: [address] [place] [address] Mobile Relation: Spouse Secondary Emergency Contact: Chastity Hendricks [facility] Mobile Relation: Child Date of Service: 04/28/2017 [...] point he can't function at home. - [facility] consult, patient of Dr Mcclure - YEVGENIY jack. He also does ok with oral oxycodone and Stevenson - NPO, IVMF - Consider steroid but [...] not show any fracture. He was prescribed Stevenson. The pain did not improve. Patient saw [...] L3-4 ; Surgeon: Hang Mcclure MD; Location: [facility] OR; Service: ??? TONSILLECTOMY Allergies Reviewed by myself [...] mouth 2 (two) times a day. ??? multivitamin,fe-pjji-nwjwxoqv (COMPLETE MULTIVITAMIN) Tab Take by mouth. ??? [...] Social History Narrative He severed in the [employer]. 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 Family History Reviewed by myself with [...] COMPATIBLE Unit Type O Pos Unit Number [id number] Status Released Component Red Blood Cells PRODUCT CODE [id number] Crossmatch Result Value Ref Range Crossmatch COMPATIBLE Unit Type O Pos Unit Number [id number] Status Released Component Red Blood Cells PRODUCT CODE [id number] Creatinine Result Value Ref Range Creatinine 1.34 (H) 0.70 - 1.30 mg/dL GFR MDRD Af Amer >60 >60 mL/min/1.73m2 GFR MDRD Non Af Amer 52 (L) >60 mL/min/1.73m2 Antibody Identification Result Value Ref Range Antibody ID > 3hr for more blood;Anti-Rosa No new imaging obtained EKG: Normal sinus rhythm rate 62 bpm. No previous tracing for comparison Pertinent Labs/EKG/XRAY Reviewed Social History, Family History, PMH, PSH, Medications and Allergies reviewed. Total time: 70 minutes with >50% time spent with coordination of care and counseling reviewing plan of care with patient and family 04/28/2017 Mili Monet MD [facility] Medicine Service documented in this encounter Consult Notes Rae Campo PA-C - 04/28/2017 12:49 PM CDT ORTHOPEDIC CONSULTATION Consultation SHREYA Clarke 1940, [facility] Acute low back pain due to trauma [M54.5] PCP: Kannan Nieto MD, Code status: Full Code Extended Emergency Contact Information Primary Emergency Contact: Sania Hendricks Address: [address] [id number] [facility] Mobile Relation: Spouse Secondary Emergency Contact: Chastity Hendricks [facility] Mobile Relation: Child CHIEF COMPLAINT: Acute low [...] progress and he was seen at a [facility] urgent care on 04/22 and was give a medrol dose pack which gave him somepain relief, but the pain returned once the dose pack was finished. He also had a CT scan ordered which he had done at [facility]. He was scheduled to see Dr. [...] day. 04/27/2017 at just started 04/27 ??? multivitamin,pw-zsve-ubrgsezw (COMPLETE MULTIVITAMIN) Tab Take 1 tablet by [...] Mcclure and Dr. Burger, on-call surgeon for [facility] and they are in agreement with [...] follow this patient. Thank you for including [facility] in the care of Speedy Hendricks. [...] behalf by Jhon Park, a trained medical charge entry specialist. The creation of this record is based [...] L3-4 ; Surgeon: Hang Mcclure MD; Location: [facility]; Service: ??? TONSILLECTOMY Past Medical History: Diagnosis [...] l stenosis. Narrative 04/29/2017 9:20 AM CDT [facility] MR LUMBAR SPINE WO CONTRAST 04/28/2017 2:12 [...] note might be different from the original. [facility] MR LUMBAR SPINE WO CONTRAST 04/28/2017 2:12 [...] 12-lead, tracing only (04/28/2017 2:05 AM CDT) [facility] gist Method Time Signature Systolic Blood 184 mmHg 04/28/2017 [facility] Pressure 8:51 AM CDT CONVERSION Diastolic Blood 98 mmHg 04/28/2017 [facility] Pressure 8:51 AM CDT CONVERSION Ventricular Rate 60 BPM 04/28/2017 [facility] 8:51 AM CDT CONVERSION Atrial Rate 60 BPM 04/28/2017 [facility] 8:51 AM CDT CONVERSION KS Interval 160 ms 04/28/2017 [facility] 8:51 AM CDT CONVERSION QRS Duration 88 ms 04/28/2017 [facility] 8:51 AM CDT CONVERSION QT 432 ms 04/28/2017 [facility] 8:51 AM CDT CONVERSION QTc 432 ms 04/28/2017 [facility] 8:51 AM CDT CONVERSION P Murphy 16 degrees 04/28/2017 [facility] 8:51 AM CDT CONVERSION R AXIS 16 degrees 04/28/2017 [facility] 8:51 AM CDT CONVERSION T Murphy 19 degrees 04/28/2017 HE [facility] 8:51 AM CDT CONVERSION Interpretation Normal sinus rhythm 04/28/2017 HE R ADIANT ECG Normal ECG 8:51 AM CDT CONVERSION No previous ECGs available Confirmed by VEL ??SUKHJINDER WELSH LOC:JN ([id number]) on 04/28/2017 8:5 1:37 AM Specimen Anatomical [...] Lumbago documented in this encounter Care Teams Drywall Hanger Relationship Specialty Start Date End Date Primary Dipak Kasper MD PCP - General 09/21/1204/18 documented as of this encounter
--- OUTSIDE RECORDS SUMMARY | 2022-07-31 14:00 | XMS_ITS | Encounter Summary ---
:1940 Author Organization [place] Address [address] [place] [address] Care Team Providers Name Role Phone Primary Dr, Unknown Primary Care Provider Unavailable Reason for Visit Reason Comments Dressing Change Encounter Details Date Type Department Care Team Description 11/18/2016 Allied Health/Nurse [facility] Dressing Change Visit [address] [phone] Social History Tobacco Use Types Packs/Day Years Used Date Smoking Tobacco: Former Comments: quit 1985 Alcohol Use Standard Drinks/Week Comments Yes 0 (1 standard drink = 0.6 oz pure alcoho l) 10 per week Sex Assigned at Date Recorded Not on file documented as of this encounter Patient Instructions Patient InstructionsLillian Aj CMA - 11/18/2016 9:59 AM CST WOUND [...] healed. IN CASE OF EMERGENCY: Dr White [phone] If you were seen in [place] call: [phone] If you were seen in [place] call: [phone] POUNCER MACHINE OPERATOR documented in this encounter Progress Notes Lillian [...] needed. Patient verbalized understanding. .Marva Aj CMA POUNCER MACHINE OPERATOR documented in this encounter Plan of Treatment Not on filedocumented as of this encounter Visit Diagnoses Diagnosis Encounter for change or removal of surgi hannah wound dressing - Primary documented in this encounter Care Teams Manager Solution Relationship Specialty Start Date End Date Primary Dipak Kasper, PCP - General 09/21/1204/18 documented as of this encounter
--- OUTSIDE RECORDS SUMMARY | 2022-07-31 14:00 | XMS_ITS | Encounter Summary ---
:1940 Author Organization [place] Address [address] [place] [address] Care Team Providers Name Role Phone Primary Dipak Kasper MD Primary Care Provider Unavailable Celina Coley Primary Care Provider [facility] Primary Care Provider [phone] Jon White MD Unavailable [phone] Ramiro Loco MD Unavailable Encounter Details Date Type Department Care Team Description 11/29/2014 Anesthesia - [facility] George [facility] [place] [address] [place] [address] [place], [place] [phone] [id number] Social History Tobacco Use Types Packs/Day Years [...] Hydration: adequate Anesthetic complications: no Additional Notes: MBLASTER Anesthesia Preprocedure Evaluation - Néstor Stack - [...] discussed with: patient Post-op plan: routine recovery MBLASTER documented in this encounter Miscellaneous Notes Anesthesia [...] documented as of this encounter Care Teams Executive Associate Relationship Specialty Start Date End Date Primary Dipak Kasper MD PCP - General 09/21/1204/18 Celina Coley PCP - General Family Practice 05/05/17 05/11/[address] [address] Kehinde Portillo PCP - General 05/12/[address] [address] Jon White Assigned Surgical Provider 08/10/20 12/08/20 MD Aubrey [address] [place] [address] Ramiro Loco MD Assigned Heart and 08/10/20 05/11/21 [address] [place] [address] Vascular Provider [place] [address] documented as of this encounter
--- OUTSIDE RECORDS SUMMARY | 2022-07-31 14:00 | XMS_ITS | Encounter Summary ---
:1940 Author Organization [place] Address [address] [place] [address]. [place] [address] Care Team Providers Name Role Phone Celina Coley Primary Care Provider Reason for Visit Auth/Cert Specialty Diagnoses / Procedures Referred By Contact Refer red To Contact Intensive Care Diagnoses Opioid overdose, accidental or unintentional, initial encounter (H) Aspiration pneumonia, unspecified aspiration pneumonia type, unspecified laterality, unspecified part of lung (H) Unresponsiveness Intensive Care [address] [place] [address] Phone: Referral ID Status Reason Start Date Expiration Date Visits Requ ested Visits Authorized [id number] 1 1 Encounter Details Date Type Department Care Team Description 05/06/2017 Anesthesia Event [facility]ronnie[facility] FOOD SAFETY DIRECTOR WELL SERVICE FLOORPERSON [address] [place] [address] ANES [phone] [place] [id number] (Wo rk) Anesthesia Record Procedure Summary Procedure Name Responsible Anesthesiologist Anesthesia Start Ti me Anesthesia Stop Time IV START 05/06/17212005/06/172140 Events Date Time Event Comment 05/06/20172120 An Start 2140 Quick Note Diagnosis: Venou s Insufficiency Procedure: IV Start Ordering Physici an: Dr Rodriguez Location:[facility] ICU 357 2141 An Stop [...] RN Darby, Timo thy J, (difficulty standing, FOOD SAFETY DIRECTOR OUTPATIENT CODING SPECIALIST alerted mental status) Peripheral IV 05/06/17; 2135; 20 G; 05/06/17 2135 by 05/08/17 0300 by Right; Lower forearm; Albino Benavidez APRN Graa lum, Scott, RN Alcohol; Injectable; WELL SERVICE FLOORPERSON Tolerated well Peripheral IV 05/06/17; 2140; 20 G; 05/06/17 2140 by 05/08/17 1619 by Right; Upper forearm; Albino Benavidez APRN With Rosette vieyra Alcohol; Injectable; WELL SERVICE FLOORPERSON JOSE Clifton Tolerated well documented in this [...] on filedocumented in this encounter Care Teams Channel Opener Relationship Specialty Start Date End Date Celina Coley PCP - General Family Practice 05/05/17 05/11/[address] [address] documented as of this encounter
--- OUTSIDE RECORDS SUMMARY | 2022-07-31 14:00 | XMS_ITS | Encounter Summary ---
:1940 Author Organization [place] Address [address] [place] [address] Care Team Providers Name Role Phone Primary Dipak Kasper MD Primary Care Provider Unavailable Celina Coley Primary Care Provider [facility] Primary Care Provider [phone] Jon White MD Unavailable [phone] Ramiro Loco MD Unavailable Encounter Details Date Type Department Care Team Description 05/03/2014 Surgery - [facility] Hang Mcclure, [facility] OR [facility] [address] [place] [address] [place] [address] [phone] (Wo rk) Social History Tobacco Use Types [...] documented as of this encounter Care Teams Owner/Operator Relationship Specialty Start Date End Date Primary Dipak Kasper MD PCP - General 09/21/1204/18 Celina Coley PCP - General Family Practice 05/05/17 05/11/[address] [address] Kehinde Portillo PCP - General 05/12/[address] [address] Jon White Assigned Surgical Provider 08/10/20 12/08/20 MD Aubrey [address] [place], [place] [phone] Ramiro Loco MD Assigned Heart and 08/10/20 05/11/21 [address] [place] [address] Vascular Provider [place] [address] documented as of this encounter
--- OUTSIDE RECORDS SUMMARY | 2022-07-31 14:00 | XMS_ITS | Encounter Summary ---
:1940 Author Organization [place] Address [address] [place] [address] Care Team Providers Name Role Phone Primary Dr, Dipak WELSH Primary Care Provider Unavailable Reason for Visit Reason Comments Derm Problem MOHS Encounter Details Date Type Department Care Team Description 11/06/2016 Office Visit [facility] Jon White Basal cell carcinoma of nose (Primary Dx); Clinic [place] MD Aubrey [place]; [place] [address] (seborrheic keratosis); [address] [address] [place], [place] [phone] [address] (Work) [phone] Social History Tobacco Use Types Packs/Day Years Used Date Smoking Tobacco: Former Comments: quit 1985 Alcohol Use Standard Drinks/Week Comments Yes 0 (1 standard drink = 0.6 oz pure alcoho l) 10 per week Sex Assigned at Date Recorded Not on file documented as of this encounter Last Filed Vital Signs Vital Sign Reading Time Taken Comments Blood Pressure 203/105 11/06/2016 10:05 AM COMPOSER TEACHING ARTIST Pulse 64 11/06/2016 10:05 AM COMPOSER TEACHING ARTIST Temperature - - Respiratory Rate - - Oxygen Saturation 96% 11/06/2016 10:05 AM COMPOSER TEACHING ARTIST Inhaled Oxygen Concentration - - Weight - - Height - - Body Mass Index - - documented in this encounter Patient Instructions Patient InstructionsMcLillian Aquino CMA - 11/06/2016 10:52 AM CST Sutured Wound Care [facility]: [phone] [facility]: [phone] ? No strenuous activity for 48 hours. [...] occurs. In case of emergency phone:Dr White [phone] OSER TEACHING ARTIST documented in this encounter Progress Notes Jon [...] ??? Ent surgery tonsils ??? Appendectomy ??? [place] teeth[ ??? Remove hardware foot 09/30/2012 Procedure: [...] will return in one week forwound evaluation. OSER TEACHING ARTIST documented in this encounter Nursing Notes Farzana Harris CMA - 11/06/2016 10:52 AM CST Surgical Office Location: [facility] [address] [place] [address] OSER TEACHING ARTIST Lillian Aj CMA - 11/06/2016 10:06 AM CST Initial BP 203/105 mmHg Pulse 64 SpO2 96% Estimated body mass index is 32.10 kg/(m^2) as calculated from the following: Height as of 10/22/12: 1.702 m (5' 7). Weight as of 10/22/12: 92.987 kg (205 lb). . OSER TEACHING ARTIST documented in this encounter Plan of Treatment Not on filedocumented as of this encounter Procedures Procedure Name Priority Date/Time Associated Diagnosis Comme nts HC MOHS Routine 11/06/2016 10:51 AM Basal cell carcinoma of HEAD/NCK/HND/FT/GEN COMPOSER TEACHING ARTIST nose 1ST STAGE UP T0 5 BLOCKS HC ADJ TISSUE XFER Routine 11/06/2016 10:51 AM Basal cell carc inoma of LID/NOS/EAR/LIP COMPOSER TEACHING ARTIST nose 10.1-30 CM documented in this encounter Visit Diagnoses Diagnosis Basal cell carcinoma of nose - Primary Basal cell carcinoma of skin of other an d unspecified parts of face Lentigo Other dyschromia SK (seborrheic keratosis) Other seborrheic keratosis Angioma Hemangioma of unspecified site documented in this encounter Care Teams Chip Loft Worker Relationship Specialty Start Date End Date Primary Dipak Kasper MD PCP - General 09/21/1204/18 documented as of this encounter
--- OUTSIDE RECORDS SUMMARY | 2022-07-31 14:00 | XMS_ITS | Encounter Summary ---
:1940 Author Organization [place] Address [address] [place] [address] Care Team Providers Name Role Phone Primary Dr, Dipak WELSH Primary Care Provider Unavailable Reason for Visit Reason Onset Date Comments Appointment 10/30/2016 Encounter Details Date Type Department Care Team Description 10/30/2016 Telephone [facility] Jon White, Appointment Miguel Coppola MD [address] [place] [phone] [place] [address] (Wo rk) Social History Tobacco [...] before procedure. Pt's daughter will accompany him. T PROTECTION SUPERINTENDENT Telephone Encounter - Lisa Diaz RN - 10/30/2016 2:33 PM CST Left detailed message for pt' daughter explaining patient can have MOHS done next week in order to save himself an extra trip or they can just come in and have consult 1st. T PROTECTION SUPERINTENDENT Telephone Encounter - Aruna Rodriguez - 10/30/2016 8:14 AM CST Patient's daughter would like clarification as to whether Mr. Hendricks is having Mohs surgery rather than consult only - as it's scheduled @ 10:45. Please advise Raquel. T PROTECTION SUPERINTENDENT documented in this encounter Plan of Treatment Not on filedocumented as of this encounter Visit Diagnoses Not on filedocumented in this encounter Care Teams Mechanical Assembly Technician Relationship Specialty Start Date End Date Primary Dipak Kasper MD PCP - General 09/21/1204/18 documented as of this encounter
--- OUTSIDE RECORDS SUMMARY | 2022-07-31 14:00 | XMS_ITS | Encounter Summary ---
:1940 Author Organization [facility] Address [address] [place] [id number] Care Team Providers Name Role Phone Primary DrDipak MD Primary Care Provider Unavailable Celina Coley Primary Care Provider [facility] Primary Care Provider [phone] Jon White MD Unavailable [phone] Ramiro Loco MD Unavailable Gallito Gonzalez [...] documented as of this encounter Care Teams Crystal Growing Technician Relationship Specialty Start Date End Date Primary DrDipak, PCP - General 09/21/1204/18 Celina Coley PCP - General Family Practice 05/05/17 05/11/[address] [address] Kehinde Portillo PCP - General 05/12/[address] [address] Jon White Assigned Surgical Provider 08/10/20 12/08/20 MD [address] [place] [address] Ramiro Loco MD Assigned Heart and 08/10/20 05/11/21 [address] Vascular Provider [place] [id number] Gallito Gonzalez, Assigned Heart and 09/29/21 MD Vascular Provider [address] [place] [address] documented as of this encounter
--- OUTSIDE RECORDS SUMMARY | 2022-07-31 14:00 | XMS_ITS | Encounter Summary ---
:1940 Author Organization [facility] Address [address] [place] [id number] Care Team Providers Name Role Phone Primary Dr, Unknown Primary Care Provider Unavailable Reason for Visit Reason Onset Date Comments Referral 10/16/2016 [facility] Encounter Details Date Type Department Care Team Description 10/16/[address] [facility] Jon White Referral ([facility]) [place] Anat Burgos MD [address] [place] [address] [phone] [place] [address] (Wo rk) Social History Tobacco [...] get Valium before procedure and will have petroleum transport driver with him. MOHS at 10 45 am. T DESIGNER Telephone Encounter - Aruna Rodriguez - 10/16/2016 3:11 PM CST Pt returned RN (Lisa) phone call. Please call again Thursday AM 10/17/16. T DESIGNER Telephone Encounter - Lisa Diaz RN - 10/16/2016 11:11 AM CST Received fax from central lab pathology from [place] for pt with BCC on nose. Pt has appt at 10 45 pm on for second opinion on skin cancer and questions. Left message for pt to clarify whether heis planning to come in for MOHS appt or just regular appt. T DESIGNER documented in this encounter Plan of Treatment Not on filedocumented as of this encounter Visit Diagnoses Not on filedocumented in this encounter Care Teams Tissue Packer Relationship Specialty Start Date End Date Primary Dipak Kasper MD PCP - General 09/21/1204/18 documented as of this encounter
--- OUTSIDE RECORDS SUMMARY | 2022-07-31 14:00 | XMS_ITS | Encounter Summary ---
:1940 Author Organization [facility] Address [address] [place] [address] Care Team Providers Name Role Phone Celina Coley Primary Care Provider [facility] [place] Primary [facility] Provider [phone] Reason for Referral Specialty Diagnoses / Procedures Referred By Contact Tam parson To Contact Sanjuanita Ponce RN Referral ID Status Reason Start Date Expiration Date Visits Requ ested Visits Authorized Specialty Diagnoses / Procedures Referred By Contact Tam parson To Contact Adrian Pleitez MD [address] [address] Referral ID Status Reason Start Date Expiration Date Visits Requ ested Visits Authorized Specialty Diagnoses / Procedures Referred By Contact Tam parson To Contact Adrian Pleitez MD [address] [facility] [address] [address] Referral ID Status Reason Start Date Expiration Date Visits Requ ested Visits Authorized Specialty Diagnoses / Procedures Referred By Contact Tam parson To Contact Adrian Pleitez MD [address] [place] [address] Referral ID Status Reason Start Date Expiration Date Visits Requ ested Visits Authorized ome Health Therapies & Aides Specialty Diagnoses / Procedures Referred By Contact Refer red To Contact Adrian Pleitez MD [address] [place] [address] Referral ID Status Reason Start Date Expiration Date Visits Requ ested Visits Authorized - Closed Specialty Diagnoses / Procedures Referred By Contact Refer red To Contact Diagnoses Paroxysmal atrial fibrillation (H) Taran Lugo MD [address] [place] [address] Referral ID Status Reason Start Date Expiration Date Visits Requ ested Visits Authorized [id number] Closed 06/11/2017 06/11/2018 1 1 Reason for [...] part of lung (H) Unresponsiveness Intensive Care [address] [address] Phone: Referral ID Status Reason Start Date Expiration Date Visits Requ ested Visits Authorized [id number] 1 1 Encounter Details Date Type Department Care Team Description 05/05/2017 [facility] Leesa Martinez MD [facility] [address] [place] [address] Opioid overdose, accidental or unintenti onal, initial encounter (Primary Dx); - Encounter Miladys Phillips MD [address] [id number] Aspiration pneumonia, unspecified aspira tion pneumonia type, unspecified laterality, unspecified part of lung (H); 05/12/2017 [facility] Stephany Farley MD [address] [place], [place] [id number] Encephalopathy; [address] Paroxysmal atrial fibrillati on (H); [place] Hyperlipidemia LDL goal <70; [address] Acute left-sided low back pa in without sciatica; [phone] Unresponsivenes s Social History Tobacco Use Types [...] Pleitez MD - 05/12/2017 3:12 PM CDT [facility] Hospitalist discharge note Date of Service (when I saw the patient): 05/12/2017 Assessment & Plan And discharge diagnoses Edward P Mcduffie is a 76 year old male who was admitted on 05/05/2017. I have followed him only today and therefore for me to do justice to a discharge summary Please follow the hospital progress notes I have met with patient and his daughter Pending work up: Sleep study as well as urology He will also follow-up with cardiology, primary care physician in [place] Speedy Mcduffie is a 76 year old male with a past medical history of Htn, CKD, atrial tachycardia, chronic back pain who was admitted on 05/05/2017 with encephalopathy thought due to opioid overdose. ?? 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 Also had been taking gabapentin and flexeril. [...] ? Suspected Aspiration PNA: as above Daughter (LOKIE DRIVER) found patient with large amount of [...] had been managed by his PMD and ANALYTICAL ENGINEER was on Morphine 15 mg po BID (daughter reported that in the past he was confused with Oxycontin),??[place] 7/325 mg 1 tab po q4-6 h; he is also on scheduled Gabapentin and prn Flexeril -had a recent admission to [facility] from 04/28-04/30 for severe lower back [...] then stop - Consulted PT/OT. ? HTN: ANALYTICAL ENGINEER on Metoprolol which was dced with bradycardia. [...] Mendes LSW - 05/12/2017 11:10 AM CDT [facility]: [phone]. documented in this encounter Medications at Time [...] continuation of in hospital lisinopril, restart of ANALYTICAL ENGINEER metoprolol (had been advised against rate slowing agents by cardiology), restart of ANALYTICAL ENGINEER flexeril and unclear amiodarone plan. states that [...] hospitalization events. -Raquel given phone # to [facility] and names of last 2 providers seen. -Provided information on creatinine and GFR lab values as well as last administered doses of PRN metoprolol (05/09), PO metoprolol (05/07 - 1/ ANALYTICAL ENGINEER dose) and daily lisinopril (05/12) during hospital stay. - Raquel indicated that she would follow up in am with cardiology service regarding medication changes. Olive Mendes LSW - 05/12/2017 11:00 AM CDT [facility] Progress Note Chart Reviewed, Pt discussed in Interdisciplinary Rounds. Pt anticipated discharge to home today with family pending medical clearance. Intervention: ADRIANO met with pt's daughter, Raquel to discuss [...] located a hospital bed for rent near [place] and has made arrangements for delivery today. SW notified CA and hospitalist to meet with daughter.per request. CC made referral to [facility] per request. Pt's family has used this agency previously. Team Members notified: Hospitalist, RN, CC, PSYCHIATRIC NURSING AIDE Plan: Discharge home today with family and home care services through [facility]. Sanjuanita Ponce RN - 05/12/2017 9:44 AM CDT Met w/ pt's dtr Raquel and ADRIANO to discuss dc planning. Raquel has some concerns about pt going home rather than TCU but her sister Chastity is on FMLA and intends to stay at home to care for him. Raquel is a [facility] ICU nurse and urgent care at [employer]. She has been on FMLA but [...] better today and therapy is recommending OP PT/OT/KILN DOOR REPAIRER if not going to TCU. His pain level is still high with ambulation so he would benefit from home care initially as he will not be going out except to his appts. He would need an RN as well. Raquel would prefer to use home care through the [facility] as it is local and they have used it before. Raquel has contacted a hospital rental company and intends to rent a hospital bed for a while at home. She states this will be delivered today and she is taking care of those arrangements. Also discussed multiple f/u appts needed. She would like to stay within the [facility] system for vascular, cardiac, and sleep study. Contacted [facility] intake [phone] and spoke to Lynn. They would be able to see pt tomorrow at home. Faxed [phone] face sheet and H&P. Will fax orders when completed. Contacted [facility] to make f/u appt with Dr Lugo. Appt made for ThuJun 19 at 2:15 to discuss AC in light of AAA. Spoke w/ Natasha Iraheta MANAGER OF TRANSPORTATION [facility]. They do not need to see pt in f/u as strokes likely more related to hypoxia than AF and cardiology will be addressing AF issue. Contacted pt's PCP Dr Celina Coley at [facility]. Appt made for 05/15 at 10:00. Will fax handoff when dc orders complete. Contacted [facility] and appt made for ThuJun [...] Lugo to discuss anticoagulation. Faxed orders to [facility] and left message with Lynn to call Raquel at [phone] toschedule appts. Sent [facility] handoff. Mattie Yanes - 05/11/2017 4:28 PM CDT [facility] Progress Note [facility], Palliative Team PRIMARY FOCUS: ? Symptom/pain management ?? Emotional/spiritual/yazidism distress ILLNESS CIRCUMSTANCES: ?? Reviewed documentation. Reflective conversation shared with Ed, which integrated elements of illnessand family narratives.? Context of Serious Illness/Symptom(s) - Pt overdosed on opioid pain relievers accidentally upon treatment for a broken tailbone. ?? Resources for Support - Strong family support from and two daughters, along with a brother who is a Shinto supervisor prop making DISTRESS: ? Emotional/Existential/Relational Distress - Pt is notably thankful for surviving this overdose. He sees that he is not finished with this life, and he is beginning to look toward how best to spend his remaining time. 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 ?? Spiritual/Sikh Distress - None discussed. Pt surprisingly comfortable with his reality of surviving. ?? Social/Cultural/Economic Distress - None discussed? SPIRITUAL/PENTECOSTALISM (Coping): ? Buddhism/Mariah - Restorationism. Pt did not particularly identify his own mairah and spoke more of his brother's. ?? [...] has not discharged. ? Mattie Berrios M.Div. Bending Shed Worker Pager [phone] Kassy Go APRN CREDIT UNION MANAGER - 05/11/2017 3:55 PM CDT [facility] Palliative Care Progress Note Speedy Mcduffie [...] if evening or weekend. Milana Go APRN, [facility] Palliative Medicine Pager [phone] Attestation: Total time on the floor involved [...] 400 mg Oral BID 400 mg at 05/11/17 09 ??? ertapenem (INVanz) 1 g vial to [...] and are neighbors. Pt' daughterRaquel is an LOKIE DRIVER and daughter Chastity is a remotely piloted vehicle controller. Chastity states she is currently on FMLA. [...] all live close proximity to one anther. SW spoke with Chastity garcia this am and at this time, they do not want any TCU referrals sent. PLAN Financial costs for the patient includes N/A Patient Goals and Preferences: Pt and family prefer that pt return to his home under the family's care. Patient anticipates discharging to: home if possible. Nikhil Rodriguez, - 05/11/2017 10:51 AM CDT [facility] Hospitalist Progress Note Nikhil Rodriguez D.O. Date of service (Date I saw patient): 05/11/2017 Assessment & Plan Speedy Mcduffie is a 76 year old male with a past medical history of Htn, CKD, atrial tachycardia, chronic back pain who was admitted on 05/05/2017 with encephalopathy thought due to opioid overdose. 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 Also had been taking gabapentin and flexeril. [...] ? Suspected Aspiration PNA: as above Daughter (LOKIE DRIVER) found patient with large amount of [...] had been managed by his PMD and ANALYTICAL ENGINEER was on Morphine 15 mg po BID (daughter reported that in the past he was confused with Oxycontin),??[place] 7/325 mg 1 tab po q4-6 h; he is also on scheduled Gabapentin and prn Flexeril -had a recent admission to [facility] from 04/28-04/30 for severe lower back [...] then stop - Consulted PT/OT. ? HTN: ANALYTICAL ENGINEER on Metoprolol which was dced with bradycardia. [...] outpt appt will be scheduled to discuss termite exterminator helper option in light of AAA Interval History: [...] Micro Report Status 10/05/2012 FINAL 10/07/2012 Final Tarna Lugo MD Counters, Natasha Li APRN CREDIT UNION MANAGER - 05/11/2017 9:03 AM CDT [facility] Daily Note Admission Date:05/05/2017 Date of [...] Sensory: Normal to light touch Coordination: Intact [id number] Gait: Up with assistance Cardiovascular: Regular rate [...] CBC RESULTS: Recent Labs Lab Test 05/11/17 0705/10/17 0743 05/09/17 0727 05/08/17 0500 WBC -- 7.7 9.5 12.7* RBC -- 3.89* 3.94* 4.00* HGB -- 12.7* 12.9* 13.0* HCT -- 37.0* 37.0* 38.3* PLT 169 168 185 162 Basic Metabolic Panel: Recent Labs Lab Test 05/11/17 0705/10/17 0743 05/09/17 0727 NA 144 144 142 [...] of small vessel ischemic disease. Natasha Iraheta, SEWER AND INSPECTOR-BC Associated attestation - Raúl Keane MD - [...] Greene MD - 05/10/2017 5:32 PM [facility]T [facility] Plan Speedy Mcduffie is a 76 year old male who was admitted on 05/05/2017. 76 year old male who was brought in for evaluation of unresponsiveness. ? 1. Altered mental status/Acute toxic encephalopathy Patient found by daughter (Raquel, LOKIE DRIVER) after likely prolonged period of unresponsiveness and suspected aspiration. Airway was cleared by daughter, but patient was hypoxic in the 60s for what soundslike at least 40 minutes before oxygen was available. Patient responded to narcan and thus it was suspected that patient had an unintentional opioid overdose with worsening of renal function and taking scheduled morphine 15mg ER BID with [place] 7.5/325 1-1.5 tabs PRN q4-6 hours started [...] ? 2. Suspected Aspiration PNA - Daughter (LOKIE DRIVER) found patient with large amount of [...] had been managed by his PMD and ANALYTICAL ENGINEER was on Morphine 15 mg po BID (daughter reported that in the past he was confused with Oxycontin),??[place] 7/325 mg 1 tab po q4-6 h; he is also on scheduled Gabapentin and prn Flexeril -and a recent admission to [facility] from 04/28-04/30 for severe lower back [...] Consulted PT/OT. ? 6. H/o HTN - ANALYTICAL ENGINEER on Metoprolol 50 mg po BID for [...] completed shifts: In: 2187 [P.O.:250; I.V.:1937] Out: 1949 [Urine:1950] Constitutional: No distress Respiratory: [...] Delgado MD - 05/10/2017 4:04 PM CDT [facility] Cardiology Progress Note Date of Service (when I saw the patient): 05/10/2017 Assessment & Plan Speedy Mcduffie is a 76 year old male who was admitted on 05/05/2017 with altered mental status. Cardiology was consulted for episodes of tachycardia. ?? 1. Atrial fibrillation/flutter: Patient has been having episodes of tachycardia which were thought to be atrial tachycardia. - ECG from Jennifer 21 and 22 show atrial flutter and fibrillation. - Patient [...] completed shifts: In: 2187 [P.O.:250; I.V.:1937] Out: 1949 [Urine:1950] Constitutional: Alert and oriented, no acute [...] Delgado MD - 05/09/2017 2:04 PM CDT [facility] Progress Note Date of Service [...] Greene MD - 05/09/2017 11:58 AM CDT [facility] Hospitalist Progress Note Assessment & Plan Speedy Mcduffie is a 76 year old male who was admitted on 05/05/2017. 76 year old male who was brought in for evaluation of unresponsiveness. ? 1. Altered mental status/Acute toxic encephalopathy Patient found by daughter (Raquel, LOKIE DRIVER) after likely prolonged period of unresponsiveness and suspected aspiration. Airway was cleared by daughter, but patient was hypoxic in the 60s for what soundslike at least 40 minutes before oxygen was available. Patient responded to narcan and thus it was suspected that patient had an unintentional opioid overdose with worsening of renal function and taking scheduled morphine 15mg ER BID with [place] 7.5/325 1-1.5 tabs PRN q4-6 hours started [...] ? 2. Suspected Aspiration PNA - Daughter (LOKIE DRIVER) found patient with large amount of [...] had been managed by his PMD and ANALYTICAL ENGINEER was on Morphine 15 mg po BID (daughter reported that in the past he was confused with Oxycontin),??[place] 7/325 mg 1 tab po q4-6 h; he is also on scheduled Gabapentin and prn Flexeril -and a recent admission to [facility] from 04/28-04/30 for severe lower back [...] Consulted PT/OT. ? 6. H/o HTN - ANALYTICAL ENGINEER on Metoprolol 50 mg po BID for [...] nurse, pt was unresponsive and airlifted to [facility]. Pt responded to Narcan, suspected accidental overdose [...] Bed to Chair/Chair to Bed Level of [place]: Bed to Chair moderate assist (50% patients effort) Physical Assist/Nonphysical Assist: Bed to Chair 2 persons Weight-Bearing Restrictions full weight-bearing Assistive Device - Transfer Skill Bed to Chair Chair to Bed Rehab Eval rolling walker Transfer Skill: Sit to Stand Level of [place]: Sit/Stand minimum assist (75% patients effort) Physical Assist/Nonphysical Assist: Sit/Stand 2 persons Transfer Skill: Sit to Stand full weight-bearing Assistive Device for Transfer: Sit/Stand rolling walker Transfer Skill: Toilet Transfer Level of [place]: Toilet moderate assist (50% patients effort) Physical Assist/Nonphysical Assist: Toilet 2 persons Assistive Device seat riser;grab bars Balance Balance Comments Reduced dynamic balance Upper Body Dressing Level of [place]: Dress Upper Body minimum assist (75% patients effort) Lower Body Dressing Level of [place]: Dress Lower Body maximum assist (25% patients effort) Physical Assist/Nonphysical Assist: Dress Lower Body 1 person assist Grooming Level of [place]: Grooming stand-by assist Activities of Daily Living [...] in agreement with plan of care Yes [employer] AM-PAC TM 6 Clicks ?? 2016, Trustees of [facility], under license to [employer]. All rights reserved. 6 Clicks Short Forms Basic Mobility Inpatient Short Form [facility] AM-PAC??? 6 Clicks Daily Activity Inpatient [...] for IV heparin. Previously reported pauses so marketing development specialist BB on hold. Could consider resuming BB and monitoring for pauses or short acting CCB. Would recommending re- consulting EP in am if cards agrees. Continue to monitor on tele. Lindsay Watt PA-C - 05/08/2017 9:13 PM CDT Paged by nursing regarding persistent sinus tachycardia in the 140s this evening. Pt asymptomatic. Reviewed chart. Pt with tachybrady syndrome. Cardiology following. Pt's ANALYTICAL ENGINEER BB has been on hold as wasalternating between periods of sinus tach and sinus dani with up to 3 second pause. Will order PRN IV Metoprolol 2.5 mg q 4 hrs PRN. Monitor. If pt should become symptomatic or HR's continue to be persistently elevated, could increase dose of IV Metoprolol or reinitiate ANALYTICAL ENGINEER BB. Stephany Farley MD - 05/08/2017 2:27 PM CDT [facility] Hospitalist Progress Note Date of Service (when I saw the patient): 05/08/2017 Assessment & Plan Speedy Mcduffie is a 76 year old male who was brought in for evaluation of unresponsiveness. ? 1. Altered mental status/Acute toxic encephalopathy Patient found by daughter (Raquel, LOKIE DRIVER) after likely prolonged period of unresponsiveness and suspected aspiration. Airway was cleared by daughter, but patient was hypoxic in the 60s for what soundslike at least 40 minutes before oxygen was available. Patient responded to narcan and thus it was suspected that patient had an unintentional opioid overdose with worsening of renal function and taking scheduled morphine 15mg ER BID with [place] 7.5/325 1-1.5 tabs PRN q4-6 hours started [...] ? 2. Suspected Aspiration PNA - Daughter (LOKIE DRIVER) found patient with large amount of [...] had been managed by his PMD and ANALYTICAL ENGINEER was on Morphine 15 mg po BID (daughter reported that in the past he was confused with Oxycontin),??[place] 7/325 mg 1 tab po q4-6 h; he is also on scheduled Gabapentin and prn Flexeril -and a recent admission to [facility] from 04/28-04/30 for severe lower back [...] Consulted PT/OT. ? 6. H/o HTN - ANALYTICAL ENGINEER on Metoprolol 50 mg po BID for [...] planning totake patient home. Stephany Farley MD [phone] (P) Text page (7am to 6pm) Interval [...] Nasal cannula Oxygen Delivery: 2 LPM Vitals: 05/05/17199905/07/17 0549 05/08/17 0400 Weight: 98 kg (216 [...] hospital, year, though thought he was in [place], [place]. No acute distress. Non-toxic. Respiratory: Clear [...] Farley MD - 05/07/2017 10:00 PM CDT [facility] Hospitalist Progress Note Date of Service (when I saw the patient): 05/07/2017 Assessment & Plan Speedy Mcduffie is a 76 year old male who was brought in for evaluation of unresponsiveness. ? 1. Altered mental status/Acute toxic encephalopathy Patient found by daughter (Raquel, LOKIE DRIVER) after likely prolonged period of unresponsiveness and suspected aspiration. Airway was cleared by daughter, but patient was hypoxic in the 60s for what soundslike at least 40 minutes before oxygen was available. Patient responded to narcan and thus it was suspected that patient had an unintentional opioid overdose with worsening of renal function and taking scheduled morphine 15mg ER BID with [place] 7.5/325 1-1.5 tabs PRN q4-6 hours started [...] ?? 2. Suspected Aspiration PNA - Daughter (LOKIE DRIVER) found patient with large amount of [...] had been managed by his PMD and ANALYTICAL ENGINEER was on Morphine 15 mg po BID (daughter reported that in the past he was confused with Oxycontin),??[place] 7/325 mg 1 tab po q4-6 h; he is also on scheduled Gabapentin and prn Flexeril -and a recent admission to [facility] from 04/28-04/30 for severe lower back [...] more alert. ? 6. H/o HTN - ANALYTICAL ENGINEER on Metoprolol 50 mg po BID for HTN. - Holding now with bradycardia. Will follow. - monitor BP ? 7. Dyslipidemia - hold ANALYTICAL ENGINEER Atorvastatin while he is npo ? 8 [...] monitoring in ICU overnight. Stephany Farley MD [phone] (P) Text page (7am to 6pm) Interval History Patient given ativan overnight and somnolent when patient's daughter present during day. Patient also noting headache throughout day. Head CT done without any acute findings. [place] with minimal improvement. Patient's mentation improved by end of day. Discussed plan at length with daughter, Raquel. -Data reviewed today: I reviewed all new [...] last 3 completed shifts: In: 2705 [P.O.:645; I.V.:0] Out: 3450 [Urine:3450] Constitutional: Patient somnolent, but [...] patient. KATIA DAVID MD Afsaneh Ceja APRN CREDIT UNION MANAGER - 05/07/2017 5:24 PM CDT ICU Multi-Disciplinary [...] Will cont to monitor. 05/07/2017 Marie Ritter MACHINE LEATHER TRIMMER Milana Rodriguez MD - 05/06/2017 11:40 PM CDT Patient with intolerable pain on acetaminophen alone. I ordered gabapentin and low dose [place] (home meds). RN concerned about alcohol withdrawal, experiencing hallucinations. CIWA, banana bag and ativan prn ordered for alcohol withdrawal. Stephany Farley MD - 05/06/2017 7:05 PM [facility]T [facility] Date of Service (when I saw the patient): 05/06/2017 Assessment & Plan Speedy Mcduffie is a 76 year old male who was brought in for evaluation of unresponsiveness. ?? 1. Altered mental status/Acute toxic encephalopathy Patient found by daughter (Raquel, LOKIE DRIVER) after likely prolonged period of unresponsiveness and suspected aspiration. Airway was cleared, but patient was hypoxic in the 60s for what sounds like at least 20-40 minutes before oxygen was available. Patient responded to narcan and thus it was suspected that patient had an unintentional opioid overdose with worsening of renal function and taking scheduled morphine 15mg ER BID with [place] 7.5/325 1-1.5 tabs PRN q4-6 hours started in the past week. Also had been taking gabapentin and flexeril. - Patient started on narcan drip initially and this has since been stopped. - Appreciate inspector fuel hose recommendations. Had initially planned to transfer to step down this afternoon, but patient having episodes of bradycardia in 40s - 50s, with one strip noting a rate of 29. These seem to happen when patient is sleeping and are sinus in nature. Accident Investigator agrees with keeping patient in the ICU [...] ?? 2. Suspected Aspiration PNA - Daughter (LOKIE DRIVER) found patient with large amount of [...] had been managed by his PMD and ANALYTICAL ENGINEER was on Morphine 15 mg po BID (daughter reported that in the past he was confused with Oxycontin), [place] 7/325 mg 1 tab po q4-6 h; he is also on scheduled Gabapentin and prn Flexeril -and a recent admission to [facility] from 04/28-04/30 for severe lower back pain when tapering Prednisone was added. On prednisone 10mg daily at time of event with plan for 2 more days 10mg and then 3 days 5mg daily. - Holding meds initially. Avoiding narcotics. Will consult PT when more alert. ?? 6. H/o HTN - ANALYTICAL ENGINEER on Metoprolol 50 mg po BID for HTN. - Holding now with episodic bradycardia. Will follow. - monitor BP - Metoprolol iv prn ordered ?? 7. Dyslipidemia - hold ANALYTICAL ENGINEER Atorvastatin while he is npo ?? 8 [...] hypoxia. PT consulted. ?? Stephany Farley MD [phone] (P) Text page (7am to 6pm) Interval [...] 76 yo male found unresponsive, airlifted to [facility] for ongoing treatment of unitnentional overdose with [...] with plan of care Yes [facility] TM 6 Clicks ?? 2016, Trustees of [facility], under license to [employer]. All rights reserved. 6 Clicks Short Forms Basic Mobility Inpatient Short Form [facility]??? 6 Clicks V.2 Basic Mobility Inpatient Short [...] 76 yo male found unresponsive, airlifted to [facility] for ongoing treatment of unitnentional overdose with [...] with plan of care Yes [facility] TM 6 Clicks ?? 2016, Trustees of [facility], under license to [employer]. All rights reserved. 6 Clicks Short Forms Basic Mobility Inpatient Short Form [facility]??? 6 Clicks V.2 Basic Mobility Inpatient [...] Time Total Evaluation Time (Minutes) 10 Marie Zuñiga KILN DOOR REPAIRER - 05/06/2017 1:30 PM CDT 05/06/17 0959 [...] aspiration of his vomit. Clinical Swallow Eval: Frannie Thick Liquid Texture Trial Mode of Presentation, Frannie spoon;self-fed Volume of Frannie Presented 3 teaspoons Oral Phase, Frannie WFL Pharyngeal Phase, Frannie intact Clinical Swallow Eval: Puree Solid Texture [...] Irvin MD - 05/06/2017 9:51 AM CDT [facility] Critical Care Service Progress Note Date of Service: 05/06/2017 Assessment & Plan Speedy Mcduffie is a 76 year old male who was admitted on 05/05/2017 with altered mental status following a possible unintentional narcotic overdose. ELECTRIC CELL TENDER: Alert, appropriate, oriented this AM. - Altered [...] FEN/GI: Abdomen benign. - NPO for now. KILN DOOR REPAIRER evaluation to assess swallow, consider starting diet [...] Today - Stop naloxone infusion. - PT, KILN DOOR REPAIRER. - Possible transfer from ICU. Interval History [...] oz) I/O last 3 completed shifts: In: [I.V.:1916.33] Out: 1700 [Urine:1700] GEN: Alert, appropriate answers [...] limits of normal. KYA INTERIANO MD Molly Fernandez, RT - 05/06/2017 5:25 AM CDT Pt on BIPAP 13/5 40% throughout the night. Gel pad and mepilex on under the mask. Will continue to follow. 05/06/2017 Molly Fernandez documented in this encounter H&P Notes Miladys Mcucllough MD - 05/05/2017 5:34 PM CDT [facility] History and Physical Hospitalist Date of [...] BID, more recently (last week) started on [place] 7.5/325 mg 1 tab po q4-6h prn - he is also on scheduled Gabapentin and Flexeril prn - his daughter- who is a LOKIE DRIVER does not think that he overdosed intentionally; she is giving him his scheduled morning and evening dose of MS contin - as per report- 14 left of his Hydrocodone 7.5-325mg filled 7/10 of which there were 30 and 17 leftof his morphine 15mg extended release filled 7/10 of which there were 28. - he [...] 141/81 - discussed with ICU attending; formal inspector fuel hose consult - continue BiPAP for now- wean [...] had been managed by his PMD and ANALYTICAL ENGINEER was on Morphine 15 mg po BID (daughter reported that in the past he was confused with Oxycontin), [place] 7/325 mg 1 tab po q4-6 h; he is also on scheduled Gabapentin and prn Flexeril -and a recent admission to [facility] from 04/28-04/30 for severe lower back pain when tapering Prednisone was added - it seems that he was doing fine at home, walking with walker - now holding all narcotics, Gabapentin, Flexeril - may need to be seen by PT when he will be more awake 6. H/o HTN - ANALYTICAL ENGINEER on Metoprolol 50 mg po BID- hold it for now given AMS and isolated low BP - monitor BP - Metoprolol iv prn ordered 7. Dyslipidemia - hold ANALYTICAL ENGINEER Atorvastatin while he is npo 8 . [...] the time of my examination;she is a LOKIE DRIVER at [employer]. History of Present Illness Speedy Mcduffie [...] time); more recently- he was started on [place] 7/325 mg 1 tab poq4-6 h; he is also on scheduled Gabapentin and prn Flexeril. He was recently admitted to [facility] from 04/28- 04/30/2017 for severe back pain; [...] called 911; he was air lifted to [facility]. As per report- he was given Narcan [...] vibration. His coordin ation is intact to [id number]. I did not his gait exam. Impression: [...] additional neurological questions. Arpita Nelson MD Document: [id number] REEDER\. Margaret Laguna MD - 05/08/2017 10:11 AM CDT [facility] Palliative Care Consultation Note Patient: Speedy [...] with any urgent needs. Margaret Laguna Pager: [phone] [facility] Inpatient Team Consult pager [phone] (M-F 8-4:30) After-hours Answering Service [phone] Palliative Clinic: [phone] Assessment Speedy Mcduffie is a 76 year old male with lower back pain 2/2 incomplete sacral fracture after a fall managed conservatively with opioids admitted 05/05 for suspected unintentional opioid overdose and aspiration. Course complicated by acute hypoxic respiratory failure, altered mental status, acute on CKD. Symptoms: Pain: didn't tolerate opioids throughout his treatment course (a little over a week ANALYTICAL ENGINEER): felt somnolent. He doesn't recall making changes [...] done rapidly if he hasn't taken it ANALYTICAL ENGINEER. Lidocaine patches didn't help in the past. Gets good relief with heat and ice, using heating pad now. I feel a trial of low-dose diclofenac with monitoring of his renal function would be a good option at this time. He is already on misoprostol ANALYTICAL ENGINEER, which I assume was started with the [...] Care Planning: patient is working on a HCD at home, wants to designate his daughters [...] sleep last night, also received one 5/325 [place] about 90min prior to my visit. ROS: [...] magnesia daily prn, Senna-docusate prn - none ANALYTICAL ENGINEER: MS Contine 15mg bid Hydrocodone/APAP 7.5/325 1-1.5 [...] reviewed: crea 1.24 (baseline) Margaret Laguna Pager: [phone] [facility] Inpatient Team Consult pager [phone] (M-F 8-4:30) After-hours Answering Service [phone] Palliative Clinic: [phone] Total time spent was 45 minutes, >50% of time was spent counseling and/or coordination of care regarding symptom assessment, disease understanding. Rolando Burrell MD - 05/07/2017 11:00 AM CDT [facility] Cardiology Consultation Date of Admission: 05/05/2017 [...] 05/07/17 97.2 kg (214 lb 4.6 oz) 10/22/12 93 kg (205 lb) 10/05/12 93 kg [...] TROPONINIES Recent Labs Lab 05/07/17 0450 05/06/17 17105/06/1744405/05/17223405/05/17 1527 05/05/17 1520 WBC 11.9* -- 14.4* [...] HDL, LDL, TRIG, CHOLHDLRATIO in the last 59425 hours. Recent Labs Lab 05/07/17 0450 05/06/17 04405/05/17 15205/05/17 1520 WBC 11.9* 14.4* -- 17.7* HGB 12.5* 12.5* 14.3 14.3 HCT 37.5* 38.3* -- 42.9 MCV 99 100 -- 99 PLT 150 135* -- 170 Recent Labs Lab 05/05/17201905/05/17 1727 05/05/17 1533 PH 7.23* 7.22* 7.22* [...] 9:21 AM CDTAssociated Order(s): CARDIOLOGY IP CONSULT [facility] Cardiology Consultation Date of Admission: 05/05/2017 [...] - 3 beers/day, question withdrawal symptoms (on [facility] protocol) 2) Sinus Pause - This AM few episodes of sinus pauses (2.5 - 3 seconds) 2) Altered Mental Status - [place] to be due to incidental opioid overdose [...] opioid therapy. He had recent admission to [facility] between 711 and 713 for severe back pain. MR Murray at that time demonstrated none placed insufficiency [...] Sinus Bradycardia Kamari Jones PA-C 05/07/2017 Pager: [phone] Associated attestation - Hue Klein MD - 05/07/2017 2:31 PM CDT Physician Attestation IHue, saw and evaluated Speedy Mcduffie as part [...] Irvin MD - 05/05/2017 6:24 PM CDT [facility] History and Physical/ Consult Critical Care Service Date of Admission: 05/05/2017 Date of Service: 05/05/17 Assessment & Plan Edjenniffer Mcduffie is a 76 year old male who presents with altered mental status. ELECTRIC CELL TENDER: Somnolent, has responded to naloxone in ED [...] - Pulmonary insufficiency: Hypercapnea improving, latest ABG 7./43/198/99. He awakens and is coughing well; would [...] was airlifted to the emergency department at [facility]. Naloxone administered during transport improved his mental status transiently. The patient has a recent sacral fracture which has caused some asrudmfah-fu-wdlnrsv pain. Past Medical History I have reviewed [...] it with pertinent information if needed. Speedy Mcduffie reports that he has quit smoking. [...] NEG Ketones Urine Negative NEG mg/dL Specific [place] Urine 1.020 1.003 - 1.035 Blood Urine [...] Monson RN - 05/05/2017 4:11 PM CDT at bedside- [facility], to discuss results with family. Aubrey Bautista RN - 05/05/2017 3:23 PM CDT Bed: ST01 Expected date: Expected time: Means of arrival: Comments: [place] - 76 M unresponsive eta 1515 Leesa [...] patient was brought by ambulance to a [facility] helicopter and then to the emergency department for evaluation because his other daughter is nurse in the ICU at [facility]. He was not brought to [facility] for evaluation because he was initially unresponsive. [...] Remove hardware foot Left lung surgical decortication [place] teeth Family History: History reviewed. No pertinent [...] Pending Blood culture: Pending Troponin POCT (collected 152): 0.02 ISTAT electrolytes POCT: NA 140, Potassium [...] the ICU under the supervision of Dr. Jamel Caruso Disclosure: I, Serena Yeager, am serving as a scribe at 3:23 PM on 05/05/2017 to document services personally performed by Leesa Martinez MD, based on my observations and the provider's statements to me. 05/05/2017 EMERGENCY DEPARTMENT Leesa Martinez MD 05/05/17 2712 documented in this encounter Miscellaneous Notes Provider Notification - Aubrey Morales RN - 05/12/2017 3:42 PM CDT Paged and spoke to Dr. Pleitez notified pharmacist from [place] pharmacy called with concern with counter indications with the d/c med sent. Ruby On Rails Developer given phone number to Dr. Pleitez, she will contact pharmacy to verify. Phone number [phone] Plan of Care - Nai Santacruz, ALISHA - 05/12/2017 3:42 PM CDT Problem: Goal Outcome Summary Goal: Goal Outcome Summary Physical Therapy Discharge Summary Reason for therapy discharge: Discharged to home with home therapy. Progress towards therapy goal(s). See goals on Care Plan in [facility] electronic health record for goal details. [...] goal(s). See goals on Care Plan in [facility] electronic health record for goal details. [...] Goal Outcome Summary Goal: Goal Outcome Summary Heel Painter PT Patient plan for discharge: Home with [...] 9:30 AM Plan of Care - Fela Agulilon RN - 05/12/2017 5:09 AM CDT Problem: [...] with GB and walker. Plan of Care Joaquina Person RN - 05/11/2017 11:28 PM CDT Problem: Goal [...] Nrsg will continue to monitor. Plan of Bishop Min - 05/11/2017 12:07 PM CDT Problem: Goal Outcome Summary Goal: Goal Outcome Summary Heel Painter PT Patient plan for discharge: None stated [...] 12:02 PM Plan of Care - Marie Zuñiga KILN DOOR REPAIRER - 05/11/2017 10:13 AM CDT Problem: Goal Outcome Summary Goal: Goal Outcome Summary Heel Painter KILN DOOR REPAIRER Patient plan for discharge: Patient would like [...] pt for OT session, pt busy with KILN DOOR REPAIRER and eating breakfast on 1st attempt, 2nd [...] plan pending. Plan of Care - Aubrey Morales RN - 05/10/2017 2:47 PM CDT Problem: [...] and then 379cc at 1210 and 476cc [id number]. D/c pending, currently recommending TCU. Nrsg will continue to monitor. Plan of Care - Marie Zuñiga SLP - 05/10/2017 1:50 PM CDT Problem: Goal Outcome Summary Goal: Goal Outcome Summary Heel Painter KILN DOOR REPAIRER Patient plan for discharge: Patient would like [...] declines/aspiration signs are observed. Plan to continue KILN DOOR REPAIRER swallow Tx For one mores session to insure diet tolerance and train strategies. Barriers to return to prior living situation: Cognition and deconditioning. Recommendations for discharge: TCU Rationale for recommendations: Patient will likely meet IP goals for swallowing. Entered by: Marie Zuñiga 05/10/2017 1:44 PM Plan of Nikos - Marie Ortega, PT - 05/10/2017 12:13 PM CDT Problem: Goal Outcome Summary Goal: Goal Outcome Summary Heel Painter PT Patient plan for discharge: Pt hopes [...] Goal Outcome Summary Goal: Goal Outcome Summary Heel Painter OT Patient plan for discharge: home with [...] Outcome: Improving Altered mental status. PT, OT, KILN DOOR REPAIRER. A/Ox4, forgetful, acute confusion episodes upon waking [...] in agreement. Plan of Care - Nikki Almendarez SLP - 05/09/2017 4:14 PM CDT Problem: Goal Outcome Summary Goal: Goal Outcome Summary Heel Painter KILN DOOR REPAIRER Patient plan for discharge: Did not state [...] declines/aspiration signs are observed. Plan to continue KILN DOOR REPAIRER swallow Tx short term to insure diet tolerance and train strategies. Barriers to return to prior living situation: Level of assist per OT/PT needs Recommendations for discharge: Per OT/PT needs; No KILN DOOR REPAIRER needs likely indicated after discharge Rationale for recommendations: Anticipate KILN DOOR REPAIRER swallow Tx goal to be be met [...] Goal Outcome Summary Goal: Goal Outcome Summary KILN DOOR REPAIRER: Attempted to see patient at breakfast for diet tolerance, but he was having to much pain to focus safely on eating. Daughter and OT at bedside. Will re- attempt later as able. Plan of Care - Jeanette Carbajal, OT - 05/09/2017 9:14 AM CDT Problem: [...] Pt had assist with dressing, and IADLs. Heel Painter OT Patient plan for discharge: Home with [...] 9:06 AM Plan of Care - Christa Vega RN - 05/09/2017 5:18 AM CDT Problem: Goal [...] pills in applesauce. Provider Notification - Joaquina Acosta RN - 05/08/2017 11:15 PM CDT Page to MD wagon driller, pt still tachy in high 115-150s - occasionally will drop below 100 but then tachycardia resumes. Given all PRN options. Orders for meds rec'd/updated in DEC. 0030 Bedside RN went togive meds and HR slowed, sustained into 70's long enough to capture strip. Tele strip printed by this jingle writer, pt appears to be in a-flutter. Sent to CCU to verify. 0045 Re-page to MD wagon driller regarding underlying rhythm. STAT 12 lead ordered. [...] to hospitalist, PRN Metoprolol ordered and given. Ruby On Rails Developer also instructed to give scheduled BP [...] Goal Outcome Summary Goal: Goal Outcome Summary Heel Painter KILN DOOR REPAIRER Patient plan for discharge: Did not state [...] day without symptoms, bp high apresoline iv [id number] without much improvement. notified at 1300 hospitalist to see family per request, then pt. Got up to the chair at 1415 brisa. It poorly, got back to bed then had bm and then a worse h/a ever. Dtr conscerned, md called again, order for CT head , bp meds given with norco. Cont. To observe, asked MD To assess but MD did not come. Provider Notification - Priscilla Machuca RN - 05/07/2017 3:[address] Garcia notified of patient complaining of worst headache of his life. Hosptalist ordered to give low dose [place] and stat head CT. Notified primary nurse. Plan of Care - Kassy Chatman SLP - 05/07/2017 2:50 PM CDT Problem: Goal Outcome Summary Goal: Goal Outcome Summary Heel Painter KILN DOOR REPAIRER Patient plan for discharge: Did not state [...] of Care - Marie Zuñiga SLP - 05/07/2017 9:47 AM CDT Problem: Goal Outcome Summary Goal: Goal Outcome Summary KILN DOOR REPAIRER: Attempted to see patient for swallow treatment but was only able to keep his eyes opened briefly. Due to lethargy and confusion recommend: 1. NPO except for medications if awake otherwise, I.V. Form. Plan of Care - Vijaya Resendiz OT - 05/07/2017 8:14 AM CDT Problem: [...] metoprolol per prn order after discussing with inspector fuel hose. Pt then had periods of tachy/dani. See [...] Goal Outcome Summary Goal: Goal Outcome Summary Heel Painter PT PT: Evaluation completed, treatment initiated. 76 [...] Goal Outcome Summary Goal: Goal Outcome Summary Heel Painter KILN DOOR REPAIRER Patient plan for discharge: Undetermined Current status: [...] his respiratory status hold the diet. 3. KILN DOOR REPAIRER will f/u for diet tolerance on 05/07/17. [...] Arouses intermittently to vigorous sternal rub. MD chávez, inspector fuel hose consult. [place] reassess at 1999 for intubation. CV: SR, pressure stable. Pulm: LS coarse, BIPAP. GI/: Abd distended. Adequate clear urine output. Skin: intact Lines: 2 periph iv Plan: plan to reassess arousal level and ABG at 1999 Pharmacy-Admission Medication History - Victoriano Villa RPH - 05/05/2017 4:44 PM CDT Admission medication history interview status for the 05/05/2017 admission is complete. See [facility] admission navigator for prior to admission medications Medication history source reliability:Good Actions taken by pharmacist (provider contacted, etc):None Additional medication history information not noted on ANALYTICAL ENGINEER med list : ----Pt unresponsive. Medication bottles [...] with Referral Routine Paroxysmal atrial Expected : Shell Plater fibrillation (H) 05/20 (Approximate), Expires: 05/11/2018 Home Care PT Referral for Referral Routine Enceph alopathy Ordered: Hospital Discharge Aspiration pneumonia, 05/12/2017 unspecified aspiration pneumonia type, unspecified laterality, unspecified part of lung (H) Home Care OT Referral for Referral Routine Enceph alopathy Ordered: Hospital Discharge Aspiration pneumonia, 05/12/2017 unspecified aspiration pneumonia type, unspecified laterality, unspecified part of lung (H) Home Care KILN DOOR REPAIRER Referral for Referral Routine Encep halopathy Ordered: [...] (05/12/2017 8:52 AM CDT) Analysis Performed At Patho logist Time Signature Sodium 144 133 - 144 [place] mmol/L [facility] Potassium 4.0 3.4 - 5.3 [place] mmol/L [facility] Chloride 112 (H) 94 - 109 [place] mmol/L [facility] Carbon Dioxide 22 20 - 32 [place] mmol/L [facility] Anion Gap 10 3 - 14 [place] mmol/L [facility] Glucose 111 (H) 70 - 99 [place] mg/dL [facility] Urea Nitrogen 25 7 - 30 [place] mg/dL [facility] Creatinine 1.55 (H) 0.66 - [place] 1.25 mg/dL [facility] GFR Estimate 44 (L) >60 [place] mL/min/1.[address] Comment: Non GFR Calc GFR Estimate If Black 53 (L) >60 mL/min/1.7m2 F [facility] Comment: GFR Calc Calcium 8.1 (L) 8.5 - 10.1 mg/dL [facility] Specimen Anatomical Collection Method Collection Time Receive d Time (Source) Location / / Volume Laterality Blood specimen 05/12/2017 8:52 AM 017 9:02 (specimen) CDT AM CDT Nikhil Rodriguez DO LAB - BLOOD ORDERABLES Performing Organization Address City/State/ZIP Code Phon e Number M [facility] [address] [address] [phone] [facility] [address] [address], [place] [phone] Hemoglobin A1c (05/11/2017 11:37 AM CDT) athologist Signature Hemoglobin A1C 5.6 4.3 - 6.0 [facility] Specimen Anatomical Collection Method Collection Time Receive d Time (Source) Location / / Volume Laterality Blood specimen 05/11/2017 11:37 7 (specimen) AM CDT 11:57 AM CDT Natasha Jen Counters BATCH RECORDS CLERK CREDIT UNION MANAGER LAB - BLOOD ORDERABLES Performing Organization Address City/State/ZIP Code Phon e Number [facility] [address] [place] [address] [facility] [address] [place] [address], [place] [phone] Vitamin B12 (05/11/2017 11:37 AM CDT) athologist Signature Vitamin B12 800 193 - 986 [facility] pg/mL [facility] Specimen Anatomical Collection Method Collection Time Receive d Time (Source) Location / / Volume Laterality Blood specimen 05/11/2017 11:37 7 (specimen) AM CDT 11:57 AM CDT Natasha Jen Counters BATCH RECORDS CLERK CREDIT UNION MANAGER LAB - BLOOD ORDERABLES Performing Organization Address City/State/ZIP Code Phon e Number [facility] [address] [place] [address] [facility] Vitamin D Deficiency (05/11/2017 11:37 AM CDT) athologist Signature Vitamin D 26 20 - 75 [facility] Deficiency ug/L [facility] [place] Comment: Season, race, dietary intake, and treatm ent affect the concentration of 43-reibkdn-Mgqidoq D. Values may decrea se during winter [...] CDT 11:57 AM CDT Natasha Jen Counters BATCH RECORDS CLERK CREDIT UNION MANAGER LAB - BLOOD ORDERABLES Performing Organization Address City/State/ZIP Code Phon e Number [facility] [address] [place] [address] [facility] (ABNORMAL) Lipid Profile (05/11/2017 11:37 AM CDT) P athologist Signature Cholesterol 128 <200 mg/dL [facility] Triglycerides 164 (H) <150 mg/dL [facility] Comment: Borderline high: ??150-199 mg/dl High: ? 200-499 mg/dl Very high: ? >499 mg/dl HDL Cholesterol 44 >39 mg/dL [facility] LDL Cholesterol Calculated 51 <100 mg/dL [facility] Comment: Desirable: <100 mg/dl Non HDL Cholesterol 84 <130 mg/dL [facility] Specimen Anatomical Collection Method Collection Time Receive d Time (Source) Location / / Volume Laterality Blood specimen 05/11/2017 11:37 7 (specimen) AM CDT 11:57 AM CDT Natasha Li Counters TERESITA ZIEGLER LAB - BLOOD ORDERABLES Performing Organization Address City/State/ZIP Code Phon e Number M [facility] [address] [phone] [facility] [address] [address], [facility] [phone] Platelet count (05/11/2017 7:17 AM CDT) P athologist Signature Platelet Count 169 150 - 450 [place] 10e9/L [facility] Specimen Anatomical Collection Method Collection Time Receive d Time (Source) Location / / Volume Laterality Blood specimen 05/11/2017 7:17 AM 017 7:30 (specimen) CDT AM CDT Stephany Farley MD LAB - BLOOD ORDERABLES Performing Organization Address City/State/ZIP Code Phon e Number M [facility] [address] [address] [facility] [address] [place] [address], [place] [phone] (ABNORMAL) Basic metabolic panel (05/11/2017 7:17 AM CDT) Analysis Performed At [facility] logist Time Signature Sodium 144 133 - 144 [place] mmol/L [facility] Potassium 3.7 3.4 - 5.3 [place] mmol/L [facility] Chloride 112 (H) 94 - 109 [place] mmol/L [facility] Carbon Dioxide 23 20 - 32 [place] mmol/L [facility] Anion Gap 9 3 - 14 [place] mmol/L [facility] Glucose 94 70 - 99 [place] mg/dL [facility] Urea Nitrogen 25 7 - 30 [place] mg/dL [facility] Creatinine 1.56 (H) 0.66 - [place] 1.25 mg/dL [facility] GFR Estimate 44 (L) >60 [place] mL/min/1.[address] Comment: Non GFR Calc GFR Estimate If Black 53 (L) >60 mL/min/1.7m2 F [facility] Comment: GFR Calc Calcium 8.5 8.5 - 10.1 mg/dL [facility] Specimen Anatomical Collection Method Collection Time Receive d Time (Source) Location / / Volume Laterality Blood specimen 05/11/2017 7:17 AM 017 7:30 (specimen) CDT AM CDT Isra Greene MD LAB - BLOOD ORDERABLES Performing Organization Address City/State/ZIP Code Phon e Number M [facility] [address] [place] [address] [facility] [address] [place] [address], [place] [phone] (ABNORMAL) CBC with platelets differential (05/10/2017 7:43 AM CDT) [facility] gist Method Time Signature WBC 7.7 4.0 - [facility] 11.0 [facility] 10e9/L [facility] RBC Count 3.89 (L) 4.4 - 5.9 [place] 10e12/L [facility] Hemoglobin 12.7 (L) 13.3 - [place] 17.7 g/dL [facility] Hematocrit 37.0 (L) 40.0 - [place] 53.0 % [facility] MCV 95 78 - 100 [place] fl [facility] MCH 32.6 26.5 - [place] 33.0 pg [facility] MCHC 34.3 31.5 - [place] 36.5 g/dL [facility] RDW 13.3 10.0 - [place] 15.0 % [facility] Platelet Count 168 150 - [address] Diff Method Automated [place] Method [facility] % Neutrophils 68.9 % [facility] % Lymphocytes 17.9 % [facility] % Monocytes 9.7 % [facility] % Eosinophils 2.6 % [facility] % Basophils 0.3 % [facility] % Immature 0.6 % [place] Granulocytes [facility] Nucleated RBCs 0 0 /100 [facility] Absolute 5.3 1.6 - 8.3 [place] Neutrophil 10e9/L [facility] Absolute 1.4 0.8 - 5.3 [place] Lymphocytes 10e9/[facility] Absolute 0.8 0.0 - 1.3 [place] Monocytes 10e9/[facility] Absolute 0.2 0.0 - 0.7 [place] Eosinophils 10e9/L [facility] Absolute 0.0 0.0 - 0.2 [place] Basophils 10e9/[facility] Abs Immature 0.1 0 - 0.4 [place] Granulocytes [address] [place] [address] Absolute 0.0 [place] Nucleated RBC [facility] Specimen Anatomical Collection Method Collection Time Receive d Time (Source) Location / / Volume Laterality Blood specimen 05/10/2017 7:43 AM 017 8:05 (specimen) CDT AM CDT Isra Greene MD LAB - BLOOD ORDERABLES Performing Organization Address City/State/ZIP Code Phon e Number M [facility] [address] [address] [facility] [address] [address], [place] [phone] (ABNORMAL) Basic metabolic panel (05/10/2017 7:43 AM CDT) Analysis Performed At Patho logist Time Signature Sodium 144 133 - 144 [place] mmol/L [facility] Potassium 3.5 3.4 - 5.3 [place] mmol/L [facility] Chloride 111 (H) 94 - 109 [place] mmol/L [facility] Carbon Dioxide 23 20 - 32 [place] mmol/L [facility] Anion Gap 10 3 - 14 [place] mmol/L [facility] Glucose 97 70 - 99 [place] mg/dL [facility] Urea Nitrogen 24 7 - 30 [place] mg/dL [facility] Creatinine 1.49 (H) 0.66 - [place] 1.25 mg/dL [facility] GFR Estimate 46 (L) >60 [place] mL/min/1.[address] Comment: Non GFR Calc GFR Estimate If Black 56 (L) >60 mL/min/1.7m2 F [facility] Comment: GFR Calc Calcium 8.6 8.5 - 10.1 mg/dL [facility] Specimen Anatomical Collection Method Collection Time Receive d Time (Source) Location / / Volume Laterality Blood specimen 05/10/2017 7:43 AM 017 8:05 (specimen) CDT AM CDT Isra Greene MD LAB - BLOOD ORDERABLES Performing Organization Address City/State/ZIP Code Phon e Number M [facility] [address] [place] [address] [phone] [facility] [address] [place] [address], [place] [phone] MR Brain w/o & w Contrast (05/09/2017 [...] with platelets differential (05/09/2017 7:27 AM CDT) [facility] Method Time Signature WBC 9.5 4.0 - [facility] 11.0 [facility] 109[facility] RBC Count 3.94 (L) 4.4 - 5.9 [place] 10e12/L [facility] Hemoglobin 12.9 (L) 13.3 - [facility] 17.7 g/dL [facility] Hematocrit 37.0 (L) 40.0 - [place] 53.0 % [facility] MCV 94 78 - 100 [place] fl [facility] MCH 32.7 26.5 - [place] 33.0 pg [facility] MCHC 34.9 31.5 - [place] 36.5 g/dL [facility] RDW 13.1 10.0 - [place] 15.0 % [facility] Platelet Count 185 150 - [address] Diff Method Automated [place] Method [facility] % Neutrophils 74.3 % [facility] % Lymphocytes 13.7 % [facility] % Monocytes 9.3 % [facility] % Eosinophils 2.2 % [facility] % Basophils 0.1 % [facility] % Immature 0.4 % [place] Granulocytes [facility] Nucleated RBCs 0 0 /100 [facility] Absolute 7.1 1.6 - 8.3 [place] Neutrophil 10e9/L [facility] Absolute 1.3 0.8 - 5.3 [place] Lymphocytes 10e9/[facility] Absolute 0.9 0.0 - 1.3 [place] Monocytes 10e9/L [facility] Absolute 0.2 0.0 - 0.7 [place] Eosinophils 10e9/[facility] Absolute 0.0 0.0 - 0.2 [place] Basophils 10e9/[facility] Abs Immature 0.0 0 - 0.4 [place] Granulocytes [facility] Absolute 0.0 [place] Nucleated RBC [facility] Specimen Anatomical Collection Method Collection Time Receive d Time (Source) Location / / Volume Laterality Blood specimen 05/09/2017 7:27 AM 017 7:40 (specimen) CDT AM CDT Stephany Farley MD LAB - BLOOD ORDERABLES Performing Organization Address City/State/ZIP Code Phon e Number M [facility] [address] [place] [address] [facility] [address] [place] [address], [place] [phone] (ABNORMAL) Basic metabolic panel (05/09/2017 7:27 AM CDT) Analysis Performed At [facility] Time Signature Sodium 142 133 - 144 [place] mmol/L [facility] Potassium 3.5 3.4 - 5.3 [place] mmol/L [facility] Chloride 110 (H) 94 - 109 [place] mmol/L [facility] Carbon Dioxide 21 20 - 32 [place] mmol/L [facility] Anion Gap 11 3 - 14 [place] mmol/L [facility] Glucose 105 (H) 70 - 99 [place] mg/dL [facility] Urea Nitrogen 22 7 - 30 [place] mg/dL [facility] Creatinine 1.44 (H) 0.66 - [place] 1.25 mg/dL [facility] GFR Estimate 48 (L) >60 [place] mL/min/1.[address] Comment: Non GFR Calc GFR Estimate If Black 58 (L) >60 mL/min/1.7m2 F [facility] Comment: GFR Calc Calcium 9.1 8.5 - 10.1 mg/dL [facility] Specimen Anatomical Collection Method Collection Time Receive d Time (Source) Location / / Volume Laterality Blood specimen 05/09/2017 7:27 AM 017 7:40 (specimen) CDT AM CDT Stephany Farley MD LAB - BLOOD ORDERABLES Performing Organization Address City/State/ZIP Code Phon e Number M [facility] [address] [address] [facility] [address] [address], [place] [phone] EKG 12-lead, tracing only (05/09/2017 12:59 AM CDT) Patholo gist Method Time Signature Interpretation ECG Click View RADIOLOGY Image link RESULTS to view waveform and result Specimen (Source) Anatomical Collection Method Collection Time Re ceived Time Location / / Volume Laterality 05/09/2017 12:59 AM CDT Mickey Smith MD ECG ORDERABLES Performing Organization Address City/[facility]/ZIP Code Phon e Number RADIOLOGY RESULTS EKG 12-lead, tracing only (05/08/2017 9:00 PM CDT) Patholo gist Method Time Signature Interpretation ECG Click View RADIOLOGY Image link RESULTS to view waveform and result Specimen (Source) Anatomical Collection Method Collection Time Re ceived Time Location / / Volume Laterality 05/08/2017 9:00 PM CDT Stephany Farley MD ECG ORDERABLES Performing Organization Address City/[facility]/ZIP Code Phon e Number RADIOLOGY RESULTS Lactic acid level STAT (05/08/2017 8:45 PM CDT) P athologist Signature Lactic Acid 1.3 0.7 - 2.1 [place] mmol/L [facility] Specimen Anatomical Collection Method Collection Time Receive d Time (Source) Location / / Volume Laterality Blood specimen 05/08/2017 8:45 PM 017 8:58 (specimen) CDT PM CDT Stephany Farley MD LAB - BLOOD ORDERABLES Performing Organization Address [facility] Phon e Number [facility] [address] [address] [facility] [address] [address], [place] [phone] (ABNORMAL) N-terminal Pro BNP Inpatient (AM Draw) (05/08/2017 5:00 AM CDT) Analysis Performed At Patho logist Time Signature N-Terminal Pro 2,947 (H) 0 - 900 [place] BNP Inpatient pg/mL [facility] Comment: Reference range shown and results [...] M [facility] [address] [address] [phone] [facility] [address] [address], [facility] [phone] (ABNORMAL) CBC with platelets differential (05/08/2017 5:00 AM CDT) [facility] gist Method Time Signature WBC 12.7 (H) 4.0 - [place] 11.0 [facility] 10e9/L [facility] RBC Count 4.00 (L) 4.4 - 5.9 [place] 10e12/L [facility] Hemoglobin 13.0 (L) 13.3 - [place] 17.7 g/dL [facility] Hematocrit 38.3 (L) 40.0 - [place] 53.0 % [facility] MCV 96 78 - 100 [facility] MCH 32.5 26.5 - [place] 33.0 pg [facility] MCHC 33.9 31.5 - [place] 36.5 g/dL [facility] RDW 13.1 10.0 - [place] 15.0 % [facility] Platelet Count 162 150 - 450 [place] 10e9/L [facility] Diff Method Automated [facility] % Neutrophils 82.5 % [facility] % Lymphocytes 8.9 % [facility] % Monocytes 6.9 % [facility] % Eosinophils 1.2 % [facility] % Basophils 0.1 % [facility] % Immature 0.4 % [place] Granulocytes [facility] Nucleated RBCs 0 0 /100 [facility] Absolute 10.5 (H) 1.6 - 8.3 [place] Neutrophil 10e9/L [facility] Absolute 1.1 0.8 - 5.3 [place] Lymphocytes 10e9/L [facility] Absolute 0.9 0.0 - 1.3 [place] Monocytes 10e9/L [facility] Absolute 0.2 0.0 - 0.7 [place] Eosinophils 10e9/L [facility] Absolute 0.0 0.0 - 0.2 [place] Basophils 10e9/L [facility] Abs Immature 0.1 0 - 0.4 [place] Granulocytes 10e9/L [facility] Absolute 0.0 [place] Nucleated RBC [facility] Specimen Anatomical Collection Method Collection Time Receive d Time (Source) Location / / Volume Laterality Blood specimen 05/08/2017 5:00 AM 017 5:06 (specimen) CDT AM CDT Stephany Farley MD LAB - BLOOD ORDERABLES Performing Organization Address City/State/ZIP Code Phon e Number M [facility] [address] [address] [phone] [facility] [address] [address], [facility] [phone] (ABNORMAL) Basic metabolic panel (05/08/2017 5:00 AM CDT) athologist Signature Sodium 140 133 - 144 [place] mmol/L [facility] Potassium 4.1 3.4 - 5.3 [place] mmol/L [facility] Chloride 109 94 - 109 [place] mmol/L [facility] Carbon Dioxide 20 20 - 32 [place] mmol/L [facility] Anion Gap 11 3 - 14 [place] mmol/L [facility] Glucose 106 (H) 70 - 99 [place] mg/dL [facility] Urea Nitrogen 19 7 - 30 [place] mg/dL [facility] Creatinine 1.24 0.66 - [place] 1.25 mg/dL [facility] GFR Estimate 57 (L) >60 [place] mL/min/1.[address] Comment: Non GFR Calc GFR Estimate If Black 69 >60 mL/min/1.7m2 F [facility] Comment: GFR Calc Calcium 8.8 8.5 - 10.1 mg/dL [facility] Specimen Anatomical Collection Method Collection Time Receive d Time (Source) Location / / Volume Laterality Blood specimen 05/08/2017 5:00 AM 017 5:06 (specimen) CDT AM CDT Stephany Farley MD LAB - BLOOD ORDERABLES Performing Organization Address City/State/ZIP Code Phon e Number M [facility] [address] [place] [address] [phone] [facility] [address] [place] [address], [place] [phone] CT Head w/o Contrast (05/07/2017 5:04 PM [...] PM 7 4:25 CDT PM CDT Miladys Mccullough MD [facility] [...] 10:53 AM CDT Narrative 05/07/2017 1:17 PM CDT [id number]^RUSTY^KAMARI^ [facility] [address] [place] [id number] Name: SPEEDY MCDUFFIE : 1940 Study Date: 05/07/2017 10:53 AM Age: 76 yrs Gender: Male Patient Location: [facility] Reason For Study: Afib Ordering Physician: [...] note might be different from the original. [id number] [facility]73 [id number]^RUSTY^KAMARI^ [facility] [address] [place] [id number] Name: SPEEDY MCDUFFIE : 1940 Study Date: 05/07/2017 10:53 AM Age: 76 yrs Gender: Male Patient Location: [facility] Reason For Study: Afib Ordering Physician: TWAN JONSE Referring Physician: Celina Coley Performed By: Connie [...] 0 05/07/2017 01:17 PM Kamari Jones PA-C ECHO ORDERABLES XR Chest Port 1 View [...] (05/07/2017 4:50 AM CDT) Analysis Performed At [facility] Time Signature Bilirubin Direct 0.2 0.0 - 0.2 [place] mg/dL [facility] Bilirubin Total 0.5 0.2 - 1.3 [place] mg/dL [facility] Albumin 2.6 (L) 3.4 - 5.0 [place] g/dL [facility] Protein Total 6.2 (L) 6.8 - 8.8 [place] g/dL [facility] Alkaline 156 (H) 40 - 150 [place] Phosphatase U/L [facility] ALT 34 0 - 70 U/L [facility] AST 46 (H) 0 - 45 U/L [facility] Specimen Anatomical Collection Method Collection Time Receive d Time (Source) Location / / Volume Laterality Blood specimen 05/07/2017 4:50 AM 017 4:55 (specimen) CDT AM CDT Stephany Farley MD LAB - BLOOD ORDERABLES Performing Organization Address City/State/ZIP Code Phon e Number M [facility] [address] [address] [facility] [address] [address], [place] [phone] (ABNORMAL) Basic metabolic panel (05/07/2017 4:50 AM CDT) Analysis Performed At [facility] Signature Sodium 143 133 - 144 [place] mmol/L [facility] Potassium 4.8 3.4 - 5.3 [place] mmol/L [facility] Chloride 114 (H) 94 - 109 [place] mmol/L [facility] Carbon Dioxide 20 20 - 32 [place] mmol/L [facility] Anion Gap 9 3 - 14 [place] mmol/L [facility] Glucose 130 (H) 70 - 99 [place] mg/dL [facility] Urea Nitrogen 25 7 - 30 [place] mg/dL [facility] Creatinine 1.52 (H) 0.66 - [place] 1.25 mg/dL [facility] GFR Estimate 45 (L) >60 [place] mL/min/1.[address] Comment: Non GFR Calc GFR Estimate If Black 54 (L) >60 mL/min/1.7m2 F [facility] Comment: GFR Calc Calcium 8.8 8.5 - 10.1 mg/dL [facility] Specimen Anatomical Collection Method Collection Time Receive d Time (Source) Location / / Volume Laterality Blood specimen 05/07/2017 4:50 AM 017 4:55 (specimen) CDT AM CDT Stephany Farley MD LAB - BLOOD ORDERABLES Performing Organization Address City/State/ZIP Code Phon e Number M [facility] [address] [address] [facility] [address] [address], [facility] [phone] Magnesium (05/07/2017 4:50 AM CDT) P athologist Signature Magnesium 2.3 1.6 - 2.3 [place] mg/dL [facility] Specimen Anatomical Collection Method Collection Time Receive d Time (Source) Location / / Volume Laterality Blood specimen 05/07/2017 4:50 AM 017 4:55 (specimen) CDT AM CDT Stephany Farley MD LAB - BLOOD ORDERABLES Performing Organization Address City/State/ZIP Code Phon e Number M [facility] [address] [address] [phone] [place] [address] [place] [address], [place] [phone] Phosphorus (05/07/2017 4:50 AM CDT) P athologist Signature Phosphorus 3.3 2.5 - 4.5 [place] mg/dL [facility] Specimen Anatomical Collection Method Collection Time Receive d Time (Source) Location / / Volume Laterality Blood specimen 05/07/2017 4:50 AM 017 4:55 (specimen) CDT AM CDT Stephany Farley MD LAB - BLOOD ORDERABLES Performing Organization Address City/State/ZIP Code Phon e Number M [facility] [address] [place] [address] [facility] [address] [place] [address], [place] [phone] (ABNORMAL) CBC with platelets differential (05/07/2017 4:50 AM CDT) Component Value Ref Test Analysis Performed At Patholo gist Range Method Time Signature WBC 11.9 (H) 4.0 - [place] 11.0 [facility] 10e9/L [facility] RBC Count 3.79 (L) 4.4 - [place] 5.9 [facility] 10e12/L [facility] Hemoglobin 12.5 (L) 13.3 - [place] 17.7 [facility] g/dL [facility] Hematocrit 37.5 (L) 40.0 - [place] 53.0 % [facility] MCV 99 78 - 100 [place] fl [facility] MCH 33.0 26.5 - [place] 33.0 pg [facility] MCHC 33.3 31.5 - [place] 36.5 [facility] g/dL [facility] RDW 13.5 10.0 - [place] 15.0 % [facility] Platelet Count 150 150 - [place] 450 [facility] 10e9/L [facility] Diff Method Manual [place] Differential [facility] % Neutrophils 92.0 % [facility] % Lymphocytes 3.0 % [facility] % Monocytes 5.0 % [facility] % Eosinophils 0.0 % [facility] % Basophils 0.0 % [facility] Absolute 10.9 (H) 1.6 - [place] Neutrophil [address] Absolute 0.4 (L) 0.8 - [place] Lymphocytes 5.[address] Absolute 0.6 0.0 - [place] Monocytes 1.3 [facility] 10e9[facility] Absolute 0.0 0.0 - [place] Eosinophils [address] Absolute 0.0 0.0 - [place] Basophils 0.[address] RBC Morphology Normal [facility] Platelet Confirming [place] Estimate automated cell [facility] Specimen Anatomical Collection Method Collection Time Receive d Time (Source) Location / / Volume Laterality Blood specimen 05/07/2017 4:50 AM 017 4:55 (specimen) CDT AM CDT Stephany Farley MD LAB - BLOOD ORDERABLES Performing Organization Address City/State/ZIP Code Phon e Number M [facility] [address] [place] [address] [facility] [address] [place] [address], [place] [phone] Calcium (05/06/2017 5:18 PM CDT) P athologist Signature Calcium 8.6 8.5 - 10.1 [place] mg/dL [facility] Specimen Anatomical Collection Method Collection Time Receive d Time (Source) Location / / Volume Laterality Blood specimen 05/06/2017 5:18 PM 017 5:23 (specimen) CDT PM CDT Jaswinder Goins MD LAB - BLOOD ORDERABLES Performing Organization Address City/State/ZIP Code Phon e Number M [facility] [address] [place] [address] [facility] [address] [place] [address], [place] [phone] Magnesium (1200) (05/06/2017 5:18 PM CDT) P athologist Signature Magnesium 1.9 1.6 - 2.3 [place] mg/dL [facility] Specimen Anatomical Collection Method Collection Time Receive d Time (Source) Location / / Volume Laterality Blood specimen 05/06/2017 5:18 PM 017 5:23 (specimen) CDT PM CDT Jaswinder Goins MD LAB - BLOOD ORDERABLES Performing Organization Address City/State/ZIP Code Phon e Number M [facility] [address] [place] [address] [facility] [address] [place] [address], [place] [phone] EKG 12-lead, tracing only (05/06/2017 5:08 PM CDT) Patholo gist Method Time Signature Interpretation ECG Click View RADIOLOGY Image link RESULTS to view waveform and result Specimen (Source) Anatomical Collection Method Collection Time Re ceived Time Location / / Volume Laterality 05/06/2017 5:08 PM CDT Jaswinder Goins MD ECG ORDERABLES Performing Organization Address City/[facility]/ZIP Code Phon e Number RADIOLOGY RESULTS (ABNORMAL) CBC with platelets (05/06/2017 4:45 AM CDT) [facility] Time Signature WBC 14.4 (H) 4.0 - 11.0 [place] 10e9/L [facility] RBC Count 3.85 (L) 4.4 - 5.9 [place] 10e12/L [facility] Hemoglobin 12.5 (L) 13.3 - [place] 17.7 g/dL [facility] Hematocrit 38.3 (L) 40.0 - [place] 53.0 % [facility] MCV 100 78 - 100 [place] fl [facility] MCH 32.5 26.5 - [place] 33.0 pg [facility] MCHC 32.6 31.5 - [place] 36.5 g/dL [facility] RDW 13.3 10.0 - [place] 15.0 % [facility] Platelet Count 135 (L) 150 - 450 [place] 10e9/L [facility] Specimen Anatomical Collection Method Collection Time Receive d Time (Source) Location / / Volume Laterality Blood specimen 05/06/2017 4:45 AM 017 4:54 (specimen) CDT AM CDT Miladys Mccullough MD LAB - BLOOD ORDERABLES Performing Organization Address City/State/ZIP Code Phon e Number M [facility] [address] [address] [facility] [address] [place] [address], [place] [phone] (ABNORMAL) Hepatic panel (05/06/2017 4:45 AM CDT) Analysis Performed At [facility] Time Signature Bilirubin Direct 0.2 0.0 - 0.2 [place] mg/dL [facility] Bilirubin Total 0.6 0.2 - 1.3 [place] mg/dL [facility] Albumin 2.6 (L) 3.4 - 5.0 [place] g/dL [facility] Protein Total 6.0 (L) 6.8 - 8.8 [place] g/dL [facility] Alkaline 144 40 - 150 [place] Phosphatase U/L [facility] ALT 33 0 - 70 U/L [facility] AST 57 (H) 0 - 45 U/L [facility] Specimen Anatomical Collection Method Collection Time Receive d Time (Source) Location / / Volume Laterality Blood specimen 05/06/2017 4:45 AM 017 4:54 (specimen) CDT AM CDT Miladys Mccullough MD LAB - BLOOD ORDERABLES Performing Organization Address City/State/ZIP Code Phon e Number M [facility] [address] [place] [id number] [phone] [facility] [address] [place] [address], [place] [phone] (ABNORMAL) Basic metabolic panel (05/06/2017 4:45 AM CDT) Analysis Performed At [facility] Signature Sodium 143 133 - 144 [place] mmol/L [facility] Potassium 4.5 3.4 - 5.3 [place] mmol/L [facility] Chloride 115 (H) 94 - 109 [place] mmol/L [facility] Carbon Dioxide 20 20 - 32 [place] mmol/L [facility] Anion Gap 8 3 - 14 [place] mmol/L [facility] Glucose 129 (H) 70 - 99 [place] mg/dL [facility] Urea Nitrogen 39 (H) 7 - 30 [place] mg/dL [facility] Creatinine 1.79 (H) 0.66 - [place] 1.25 mg/dL [facility] GFR Estimate 37 (L) >60 [place] mL/min/1.[address] Comment: Non GFR Calc GFR Estimate If Black 45 (L) >60 mL/min/1.7m2 F [facility] Comment: GFR Calc Calcium 7.8 (L) 8.5 - 10.1 mg/dL [facility] Specimen Anatomical Collection Method Collection Time Receive d Time (Source) Location / / Volume Laterality Blood specimen 05/06/2017 4:45 AM 017 4:54 (specimen) CDT AM CDT Miladys Mccullough MD LAB - BLOOD ORDERABLES Performing Organization Address City/State/ZIP Code Phon e Number M [facility] [address] [place] [address] [facility] [address] [place] [address], [facility] [phone] (ABNORMAL) Glucose by meter (05/06/2017 4:17 AM [...] (05/05/2017 10:35 PM CDT) Analysis Performed At [facility] logist Time Signature Sodium 144 133 - 144 [place] mmol/L [facility] Potassium 5.0 3.4 - 5.3 [place] mmol/L [facility] Chloride 113 (H) 94 - 109 [place] mmol/L [facility] Carbon Dioxide 21 20 - 32 [place] mmol/L [facility] Anion Gap 10 3 - 14 [place] mmol/L [facility] Glucose 148 (H) 70 - 99 [place] mg/dL [facility] Urea Nitrogen 46 (H) 7 - 30 [place] mg/dL [facility] Creatinine 1.95 (H) 0.66 - [place] 1.25 mg/dL [facility] GFR Estimate 34 (L) >60 [place] mL/min/1.[address] Comment: Non GFR Calc GFR Estimate If Black 41 (L) >60 mL/min/1.7m2 F [facility] Comment: GFR Calc Calcium 7.8 (L) 8.5 - 10.1 mg/dL [facility] Specimen Anatomical Collection Method Collection Time Receive d Time (Source) Location / / Volume Laterality Blood specimen 05/05/2017 10:35 7 (specimen) PM CDT 10:46 PM CDT Miladys Mccullough MD LAB - BLOOD ORDERABLES Performing Organization Address City/State/ZIP Code Phon e Number M [facility] [address] [address] [phone] [facility] [address] [address], U [phone] (ABNORMAL) Blood gas arterial with oxyhemoglobin (1200) (05/05/2017 8:20 PM CDT) Patholo gist Method Time Signature pH Arterial 7.23 (L) 7.35 [facility] 7.45 pH [facility] pCO2 Arterial 45 35 - 45 [place] mm Hg [facility] pO2 Arterial 159 (H) 80 - 105 [place] mm Hg [facility] Bicarbonate 19 (L) 21 - 28 [place] Arterial mmol/L [facility] FIO2 BIPAP [place] 60 [facility] Oxyhemoglobin 99 92 - 100 [place] Arterial % [facility] Base Deficit Art 8.2 mmol/L [facility] Comment: Reference range: -9.0 to 1.8 Specimen Anatomical Collection Method Collection Time Receive d Time (Source) Location / / Volume Laterality Blood specimen 05/05/2017 8:20 PM 017 8:25 (specimen) CDT PM CDT Aubrey Irvin MD LAB - BLOOD ORDERABLES Performing Organization Address City/State/ZIP Code Phon e Number M [facility] [address] [place] [address] [phone] [facility] [address] [place] [address], [place] [phone] (ABNORMAL) Glucose by meter (05/05/2017 8:06 PM CDT) P athologist Signature Glucose 135 (H) 70 - 99 [facility] mg/dL TEST, GLUCOSE Specimen Anatomical Collection Method Collection Time Receive d Time (Source) Location / / Volume Laterality 05/05/2017 8:06 PM 7 8:10 CDT PM CDT Miladys YUAN - BEFOUZIA POCT Performing Organization Address [...] PM CDT Miladys Mccullough MD LAB - BEFOUZIA POCT Performing Organization [...] negative amphetamine is 500 ng/mL or less. [facility] Barbiturates Qual Negative NEG [facility] Urine Cutoff for a negative barbiturate is 200 ng/mL or less. [facility] Benzodiazepine Negative NEG [facility] Qual Urine Cutoff for a negative benzodiazepine is 200 ng/mL or less . [facility] Cannabinoids Qual Negative NEG [facility] Urine Cutoff for a negative cannabinoid is 50 ng/mL or less. [facility] Cocaine Qual Negative NEG [facility] Urine Cutoff for a negative cocaine is 300 ng/mL or less. [facility] Opiates Positive NEG [facility] Qualitative Urine Cutoff for a positive opiat e is greater than 300 ng/mL. This is an unconfirmed [facility] screening result to be used for medical purposes only. HOSPITAL (A) PCP Qual Urine Negative NEG [facility] Cutoff for a negative PCP is 25 ng/mL or less. [facility] Specimen Anatomical Collection Method Collection Time Receive d Time (Source) Location / / Volume Laterality 05/05/2017 5:20 PM 7 7:11 CDT PM CDT Miladys Mccullough MD LAB - URINE ORDERABLES Performing Organization Address City/State/ZIP Code Phon e Number [facility] [address] [address] [phone] [facility] [address] [address], [place] [phone] (ABNORMAL) Urine Microscopic (05/05/2017 5:20 PM CDT) [facility] Method Time Signature WBC Urine O - 2 0 - 2 [place] /HPF [facility] [place] RBC Urine O - 2 0 - 2 [place] /HPF [facility] Cast Urine 2-5 0 - 2 [place] HYALINE /LPF [facility] Bacteria Urine Few (A) NEG /HPF [facility] Mucous Urine Present (A) NEG /LPF [facility] Specimen Anatomical Collection Method Collection Time Receive d Time (Source) Location / / Volume Laterality 05/05/2017 5:20 PM 7 5:29 CDT PM CDT Miladys Mccullough MD LAB - URINE ORDERABLES Performing Organization Address City/[facility]/ZIP Code Phon e Number [facility] [address] [address] (ABNORMAL) UA reflex to Microscopic and Culture (05/05/2017 5:20 PM CDT) Component Value Ref Test Analysis Performed At [facility] Range Method Time Signature Color Urine Yellow [facility] Appearance Urine Clear [facility] Glucose Urine Negative NEG [place] mg/dL [facility] Bilirubin Urine Negative NEG [facility] Ketones Urine Negative NEG [place] mg/dL [facility] Specific [place] 1.020 1.003 - [place] Urine 1.035 [facility] Blood Urine Negative NEG [facility] pH Urine 5.5 5.0 - [place] 7.0 pH [facility] Protein Albumin 30 (A) NEG [place] Urine mg/dL [facility] Urobilinogen 0.2 0.2 - [place] Urine 1.0 [facility] EU/dL [place] Nitrite Urine Negative NEG [facility] Leukocyte Negative NEG [place] Esterase Urine [facility] [place] Source Catheterized [place] Urine [facility] [place] Specimen Anatomical Collection Method Collection Time Receive d Time (Source) Location / / Volume Laterality 05/05/2017 5:20 PM 7 5:29 CDT PM CDT Miladys Mccullough MD LAB - URINE ORDERABLES Performing Organization Address City/State/ZIP Code Phon e Number [facility] [place] [address] [place], [place] [address] Blood culture (05/05/2017 4:30 PM CDT) [facility] gist Method Time Signature Specimen Blood Left [facility] Special Aerobic and [place] Requests anaerobic [facility] bottles [place] received Culture Micro No growth [...] MICRO GENERAL ORDERABL ES Performing Organization Address City/[facility]/ZIP Code Phon e Number INFECTIOUS DISEASES [address] [place] [address] DIAGNOSTIC LABORATORY, [phone] [place] [address] [address] [place] [address] [place] INFECTIOUS DISEASE [address] DIAGNOSTIC LABORATORY Lactic acid whole blood (05/05/2017 3:50 PM CDT) P athologist Signature Lactic Acid 1.5 0.7 - 2.1 [place] mmol/L [facility] Specimen Anatomical Collection Method Collection Time Receive d Time (Source) Location / / Volume Laterality 05/05/2017 3:50 PM 7 4:06 CDT PM CDT Leesa Martinez MD LAB - BLOOD ORDERABLES Performing Organization Address City/State/ZIP Code Phon e Number [facility] [address] [place] [address] [facility] [address] [address], [facility] [phone] Blood culture (05/05/2017 3:45 PM CDT) [facility] Method Time Signature Specimen Blood Left [facility] Special Aerobic and [place] Requests anaerobic [facility] ED bottles [place] received [...] Code Phon e Number INFECTIOUS DISEASES [address] [place] [address] DIAGNOSTIC LABORATORY, [phone] [place] [address] [address] [address], [facility] [place] INFECTIOUS DISEASE [address] [place], [place] [address] DI[facility]STIC LAB[facility]ORY Chest XR, 1 view PORTABLE [...] Signature pH Arterial 7.22 (L) 7.35 - [facility] 7.45 pH [facility] pCO2 Arterial 48 (H) 35 - 45 [place] mm Hg [facility] pO2 Arterial 112 (H) 80 - 105 [place] mm Hg [facility] Bicarbonate 20 (L) 21 - 28 [place] Arterial mmol/L [facility] Oxyhemoglobin 97 92 - 100 [place] Arterial % [facility] Base Deficit Art 7.5 mmol/L [facility] Comment: Reference range: -9.0 to 1.8 Specimen Anatomical Collection Method Collection Time Receive d Time (Source) Location / / Volume Laterality Blood specimen 05/05/2017 3:33 PM 017 3:54 (specimen) CDT PM CDT Leesa Martinez MD LAB - BLOOD ORDERABLES Performing Organization Address City/State/ZIP Code Phon e Number M [facility] [address] [address] [phone] [facility] [address] [address], [facility] [phone] Troponin POCT (05/05/2017 3:29 PM CDT) P [...] ISTAT electrolytes POCT (05/05/2017 3:27 PM CDT) athologist Signature Sodium 140 133 - [...] EKG 12 lead (05/05/2017 3:24 PM CDT) [facility] gist Method Time Signature Interpretation ECG Click View RADIOLOGY Image link RESULTS to view waveform and result Specimen (Source) Anatomical Collection Method Collection Time Re ceived Time Location / / Volume Laterality 05/05/2017 3:24 PM CDT Leesa Martinez MD ECG ORDERABLES Performing Organization Address City/State/ZIP Code Phon e Number RADIOLOGY RESULTS (ABNORMAL) Glucose by meter (05/05/2017 3:23 PM CDT) athologist Signature Glucose 116 (H) 70 - [...] (ABNORMAL) CK total (05/05/2017 3:20 PM CDT) athologist Signature CK Total 325 (H) 30 - 300 [facility] U/L [facility] Specimen Anatomical Collection Method Collection Time Receive d Time (Source) Location / / Volume Laterality 05/05/2017 3:20 PM 7 3:31 CDT PM CDT Leesa Martinez MD LAB - BLOOD ORDERABLES Performing Organization Address City/State/ZIP Code Phon e Number M [facility] [address] [place] [address] [phone] [facility] [address] [place] [address], [place] [phone] Alcohol ethyl (05/05/2017 3:20 PM CDT) P athologist Signature Ethanol g/dL <0.01 <0.01 g/dL [facility] Specimen Anatomical Collection Method Collection Time Receive d Time (Source) Location / / Volume Laterality 05/05/2017 3:20 PM 7 3:31 CDT PM CDT Leesa Martinez MD LAB - BLOOD ORDERABLES Performing Organization Address City/State/ZIP Code Phon e Number M [facility] [address] [place] [address] [phone] [facility] [address] [place] [address], [place] [phone] Salicylate level (05/05/2017 3:20 PM CDT) Patholo gist Method Time Signature Salicylate <2 mg/dL [facility] Therapeutic: ?<20 [place] Anti inflammatory: ??15-30 [facility] Specimen Anatomical Collection Method Collection Time Receive d Time (Source) Location / / Volume Laterality Blood specimen 05/05/2017 3:20 PM 017 3:31 (specimen) CDT PM CDT eLesa Martinez MD LAB - BLOOD ORDERABLES Performing Organization Address City/State/ZIP Code Phon e Number M [facility] [address] [place] [address] [phone] [facility] [address] [place] [address], [place] [phone] Acetaminophen level (05/05/2017 3:20 PM CDT) Component Value Ref Test Analysis Performed At [facility] gist Range Method Time Signature Acetaminophen <2 mg/L [place] Level Therapeutic range: 10-20 mg/L [facility] Specimen Anatomical Collection Method Collection Time Receive d Time (Source) Location / / Volume Laterality Blood specimen 05/05/2017 3:20 PM 017 3:31 (specimen) CDT PM CDT Leesa Martinez MD LAB - BLOOD ORDERABLES Performing Organization Address City/State/ZIP Code Phon e Number M [facility] [address] [place] [address] [phone] [facility] [address] [place] [address], [place] [phone] (ABNORMAL) Comprehensive metabolic panel (05/05/2017 3:20 PM CDT) Analysis Performed At [facility] logist Time Signature Sodium 141 133 - 144 [place] mmol/L [facility] Potassium 4.4 3.4 - 5.3 [place] mmol/L [facility] Chloride 107 94 - 109 [place] mmol/L [facility] Carbon Dioxide 23 20 - 32 [place] mmol/L [facility] Anion Gap 11 3 - 14 [place] mmol/L [facility] Glucose 126 (H) 70 - 99 [place] mg/dL [facility] Urea Nitrogen 48 (H) 7 - 30 [place] mg/dL [facility] Creatinine 2.41 (H) 0.66 - [place] 1.25 mg/dL [facility] GFR Estimate 26 (L) >60 [place] mL/min/1.[address] Comment: Non GFR Calc GFR Estimate If Black 32 (L) >60 mL/min/1.7m2 F [facility] Comment: GFR Calc Calcium 8.6 8.5 - 10.1 mg/dL [facility] Bilirubin Total 0.5 0.2 - 1.3 mg/dL [facility] Albumin 3.3 (L) 3.4 - 5.0 g/dL [facility] Protein Total 6.9 6.8 - 8.8 g/dL [facility] Alkaline Phosphatase 166 (H) 40 - 150 U/L [facility] ALT 29 0 - 70 U/L [facility] AST 22 0 - 45 U/L [facility] Specimen Anatomical Collection Method Collection Time Receive d Time (Source) Location / / Volume Laterality Blood specimen 05/05/2017 3:20 PM 017 3:31 (specimen) CDT PM CDT Leesa Martinez MD LAB - BLOOD ORDERABLES Performing Organization Address City/State/ZIP Code Phon e Number M [facility] [address] [place] [address] [facility] [address] [place] [address], [place] [phone] (ABNORMAL) CBC with platelets differential (05/05/2017 3:20 PM CDT) [facility] Method Time Signature WBC 17.7 (H) 4.0 - [place] 11.0 [facility] 10e9/[facility] RBC Count 4.32 (L) 4.4 - 5.9 [place] 10e12/L [facility] Hemoglobin 14.3 13.3 - [place] 17.7 g/dL [facility] Hematocrit 42.9 40.0 - [place] 53.0 % [facility] MCV 99 78 - 100 [facility] MCH 33.1 (H) 26.5 - [place] 33.0 pg [facility] MCHC 33.3 31.5 - [place] 36.5 g/dL [facility] RDW 13.0 10.0 - [place] 15.0 % [facility] Platelet Count 170 150 - 450 [place] 10e9/L [facility] Diff Method Automated [facility] % Neutrophils 83.6 % [facility] % Lymphocytes 9.3 % [facility] % Monocytes 6.0 % [facility] % Eosinophils 0.7 % [facility] % Basophils 0.1 % [facility] % Immature 0.3 % [place] Granulocytes [facility] Nucleated RBCs 0 0 /100 [facility] Absolute 14.8 (H) 1.6 - 8.3 [place] Neutrophil 10e9/L [facility] Absolute 1.7 0.8 - 5.3 [place] Lymphocytes 10e9/L [facility] Absolute 1.1 0.0 - 1.3 [place] Monocytes 10e9/L [facility] Absolute 0.1 0.0 - 0.7 [place] Eosinophils 10e9/L [facility] Absolute 0.0 0.0 - 0.2 [place] Basophils 10e9/L [facility] Abs Immature 0.1 0 - 0.4 [place] Granulocytes 10e9/L [facility] Absolute 0.0 [place] Nucleated RBC [facility] Specimen Anatomical Collection Method Collection Time Receive d Time (Source) Location / / Volume Laterality Blood specimen 05/05/2017 3:20 PM 017 3:31 (specimen) CDT PM CDT Leesa Martinez MD LAB - BLOOD ORDERABLES Performing Organization Address City/State/ZIP Code Phon e Number M [facility] [address] [address] [phone] [facility] [address] [address], [facility] [phone] documented in this encounter Visit Diagnoses Diagnosis Opioid overdose, accidental or unintenti onal, initial encounter (H) - Primary Aspiration pneumonia, unspecified aspira tion pneumonia type, unspecified laterality, unspecified part of lung (H) Encephalopathy Encephalopathy, unspecified Paroxysmal atrial fibrillation (H) Atrial fibrillation Hyperlipidemia LDL goal <70 Other and unspecified hyperlipidemia Acute left-sided low back pain without s ciatica Unresponsiveness Other alteration of consciousness Unresponsiveness Other alteration of consciousness documented in [...] 05/12/2017 4:05 AM CDT 100 mL/hr New Bag 05/11/2017 7:50 PM CDT 100 mL/hr 0.9% sodium chloride BOLUS New Bag 05/05/2017 3:32 PM CDT 1,000 mLs 1000 mL/hr Intravenous, 1,000 mL, ONCE, at 1,000 mL/hr, Administer over 1 Hours, On Thu05/05/17 at 1531, For 1 dose 0.9% sodium chloride BOLUS New Bag 05/05/2017 5:08 PM CDT 1,000 mLs Intravenous, 1,000 mL, ONCE, On Thu05/05/17 at 1650, For 1 dose 0.9% sodium chloride infusion New Bag 05/05/2017 3:57 PM CDT 1,000 mLs 125 [...] at 1545, For 1 dose, Demar Berumen: cabinet override ipratropium - albuterol 0.5 mg/2.5 mg/3 [...] run maintenance IV during vitamin infusion. New 05/10/2017 12:20 AM CDT 100 mL/hr New 05/09/2017 12:29 AM CDT 100 mL/hr naloxone (NARCAN) 2.5 mg in NaCl New 05/05/2017 4:37 PM CD T 0.4 mg/hr 40 mL/hr 0.9 % 250 mL infusion 0.3 mg/hr (30 mL/hr), Intravenous, CONTINUOUS, Starting on Thu05/05/17 at 1617 naloxone (NARCAN) 2.5 mg Rate/Dose Verify 05/06/2017 8:00 AM CDT 0. 2 mg/hr 20 mL/hr in NaCl 0.9 % 250 mL infusion 0.2 mg/hr (20 mL/hr), Intravenous, CONTINUOUS, Starting on Thu05/05/17 at 1800 New 05/06/2017 1:33 AM CDT 0.2 mg/hr 20 mL/hr New 05/05/2017 6:43 PM CDT 0.2 mg/hr 20 [...] to ngue immediately. Administration with liquid unnecessary oxyCODONE (ROXICODONE) IR half-tab 2.5 m g Given 05/09/2017 2:43 PM CDT 2.5 mg 2.5 mg, Oral, EVERY 4 HOURS PRN, moderate to severe pain, Starting on Thu05/08/17 at 1651 Given 05/09/2017 8:55 AM CDT 2.5 mg Given 05/08/2017 9:23 PM CDT 2.5 mg oxyCODONE (ROXICODONE) IR tablet 5 mg Given 05/12/2017 2:33 PM CDT 5 mg 5 mg, Oral, EVERY 4 HOURS PRN, moderate to severe pain, Starting on Thu05/09/17 at 1620 Given 05/12/2017 10:34 AM CDT [...] Intracatheter, EVERY 8 HOURS, First dose on Thu05/09/17 at 1345 sodium chloride (PF) 0.9% PF [...] mg 0825 (Given - Provider: Aubrey Morales RN)1558 (Given - Provider: Rosette Reese RN)2116 (Given - Provider: Rosette Reese RN) 0921 (Given - Provider: Aubrey Morales RN)1628 (Given - Provider: Joaquina Acosta RN)2216 (Given - Provider: Joaquina Acosta RN) 0914 [...] amiodarone treatment. amiodarone (PACERONE/CODARONE) tablet 400 mg 0825 (Giv en - Provider: Aubrey Morales RN)2115 (Given - Provider: Rosette Reese RN) 09 (Given - Provider: Aubrey Morales RN)2031 (Given - Provider: Joaquina Acosta, JOSE) 09 (Given - Provider: Torres Altamirano) 400 mg, Oral, 2 TIMES DAILY, First dose on Thu05/09/17 at 2100, For 7 days, Avoid grapefruit juice during oral amiodarone treatment. aspirin chewable tablet 81 mg 0826 (Given - Provider: Aubrey Morales RN) 0921 (Given - Provider: Aubrey Morales RN) 0914 (Given - Provider: Torres Altamirano) 81 mg, Oral, DAILY, First dose on Thu05/08/17 at 1215 atorvastatin (LIPITOR) tablet 40 mg 0826 (Given - Prov ider: Aubrey Morales RN) 0922 (Given - Provider: Aubrey Morales RN) 0913 (Giv en - Provider: Torres Altamirano) 40 mg, Oral, DAILY, First dose on Thu05/08/17 at 1215 ertapenem (INVanz) 1 g vial to attach to NS 100 mL bag (COMPLETED) 9788 (New Bag - Provider: Rosette Reese RN) [...] Morales RN)1559 (Given - Provider: Rosette Reese RN)211 (Given - Provider: Rosette Reese RN) 0922 [...] RN) 0931 (Given - Provider: Aubrey Morales RN)2031 (Given - Provider: Joaquina Acosta RN) 0914 [...] Lozano RN)1558 (Given - Provider: Rosette Reese RN)211 (Given - Provider: Rosette Reese RN) 0536 [...] 30 mg, Oral, DAILY, First dose on Thu at 1415, DO NOT CRUSH. Can split tablet in half along score donnie. isosorbide mononitrate (IMDUR) 24 hr tablet 60 mg 0922 (Given - Provider: Aubrey Morales, RN) 0913 (Given - Provider: Torres Altamirano) 60 mg, Oral, DAILY, First dose on Thu at 0900, DO NOT CRUSH. Can split tablet in half along score donnie. lidocaine (LIDODERM) 5 % Patch 3 patch 1 645 (Given - Provider: Joaquina Acosta RN - Comment: low back and L hip) [...] (COMPLETED) 1418 (Given - Provider: Molly Brown, RN) 10-20 mL, Urethral, ONCE, Thu05/11/17 at 1400, [...] infusion. predniSONE (DELTASONE) tablet 10 mg (CANCELED) 08 (G iven - Provider: Aubrey Morales RN) [...] Infusing) 0202 (Not Given - Provider: Fela mcfarland RN - Reason: IV Infusing)1000 (Not Given - Provider: Aubrey Morales RN - Reason: IV Infusing) 3 mL, Intracatheter, EVERY 8 HOURS, Firs t dose on Thu05/05/17 at 1800, And Q1H PRN, to lock peripheral IV dormant line. terazosin (HYTRIN) capsule 5 mg 2115 (Given - Provider : Rosette Reese, RN) 2215 (Given - Provider: Joaquina Acosta, JOSE) 5 mg, Oral, AT BEDTIME, First dose on Thu05/08/17 at 2200 Continuous Medication Order 05/10/2017 05/11/2017 05/12/2017 0.45% sodium chloride + KCl 20 mEq/L infusion 0800 (Ra te/Dose Verify - Provider: Aubrey Morales, JOSE)0821 (New Bag - Provider: Aubrey Morales RN)1928 (New Bag - Provider: Rosette Reese, JOSE) 0928 (Rate/Dose Verify - Provider: Aubrey Morales RN)0931 (New Bag - Provider: Aubrey Morales, JOSE)1629 (Rate/Dose Verify - Provider: Joaquina Acosta, JOSE)1950 (New Bag - Provider: Dulce Stack RN) 0405 (New Bag - Provider: Fela ferguson, RN)0800 (Rate/Dose Verify - Provider: Aubrey Morales, JOSE) at 100 mL/hr, Intravenous, CONTINUOUS, S tarting [...] Nebulization, EVERY 4 HOURS PRN, wheezing, Starting Thu at 1451 lidocaine (LMX4) cream Topical, EVERY [...] Administer over 2-5 Minutes, Starting Thu05/05/17 at 1750, This is Step 1 [...] Jumana Rodriguez RN)0536 (Given - Provider: Jumana Rodriguez, JOSE)0922 (Given - Provider: Aubrey Morales RN)1335 (Given - Provider: Aubrey Morales RN)1800 (Given - Provider: Rosette Reese RN) 0201 (Given - Provider: Fela Aguillon , JOSE)0556 (Given - Provider: Fela Aguillon RN)1034 (Given - Provider: Haley García RN)1433 (Given - Provider: Aubrey Morales RN) 5 mg, Oral, EVERY 4 HOURS PRN, moderate to severe pain, Starting 05/09/17 at 1620 2216 (Given - Provider: Joaquina Acosta RN) senna-docusate (SENOKOT-S;PERICOLACE) 8.6-50 MG per tablet 1-2 t ablet 1-2 tablet, Oral, 2 TIMES DAILY PRN, con stipation , Starting 05/05/17 at 1750, If no bowel movement in [...] jelly (COMPLETED) 0533 (Given - Provider: Jumana Rodriguez, JOSE) Starting on Thu05/11/17 at 0533, For 1 [...] Irritant.
documented in this encounter Care Teams Reimbursement Consultant Relationship Specialty Start Date End Date Celina Coley PCP - General Family Practice 05/05/17 05/11/[address] [address] [place], Kehinde Portillofield PCP - General 05/12/[address] [place] [id number] documented as of this encounter
--- OUTSIDE RECORDS SUMMARY | 2022-07-31 14:01 | XMS_ITS | Encounter Summary ---
:1940 Author Organization [facility] Address [address] [place] [address] Care Team Providers Name Role Phone Primary Dr, Unknown Primary Care Provider Unavailable Reason for Visit Auth/Cert - Closed Specialty Diagnoses / Procedures Referred By Contact Refer red To Contact Surgery Diagnoses painful internal fixation left foot Rh Periop Services Procedures REMOVE HARDWARE FOOT [address] [place], [place] [address] Phone: Fax: Referral ID Status Reason Start Date Expiration Date Visits Requ ested Visits Authorized [id number] Closed 1 1 Encounter Details Date Type Department Care Team Description 09/30/2012 Hospital Encounter [facility] Alvin Trujillo rcare following Andres Castellanos, ADALID surgery of the PreOP/PostOP [address] [place] [facility], [address] NEC (Primary Dx) [address] [place] [address] [phone] Social History Tobacco Use Types Packs/Day Years Used Date Smoking Tobacco: Former Comments: quit 1984 Alcohol Use Standard Drinks/Week Comments Yes 0 (1 standard drink = 0.6 oz pure alcoho l) 10 per week Sex Assigned at Date Recorded Not on file documented as of this encounter Last Filed Vital Signs Vital Sign Reading Time Taken Comments Blood Pressure 130/79 09/30/2012 2:45 PM WAGON DRIVER Pulse - - Temperature 36.2 ??C (97.2 ??F) 09/30/2012 2:45 PM WAGON DRIVER Respiratory Rate 16 09/30/2012 2:45 PM WAGON DRIVER Oxygen Saturation 98% 09/30/2012 2:45 PM WAGON DRIVER Inhaled Oxygen Concentration - - Weight 93 kg (205 lb) 09/30/2012 10:24 AM WAGON DRIVER Height 170.2 cm (5' 7) 09/30/2012 10:24 AM WAGON DRIVER Body Mass Index 32.11 09/30/2012 10:24 AM WAGON DRIVER documented in this encounter Discharge Instructions Discharge [...] DR. SAL TRUJILLO M.D. CLINIC PHONE NUMBER: [phone]. N DRIVER documented in this encounter Medications at [...] Trujillo DPM - 09/23/2012 4:09 PM CST N DRIVER documented in this encounter Nursing Notes Iwona Ruiz RN - 09/30/2012 12:33 PM CST First Panel started at 1210 and ended at 1230. Second panel started at 1230 and ended at 1237. Jen Ruiz RN N DRIVER Iwona Ruiz RN - 09/30/2012 12:22 PM CST Patient did not want his hardware that was removed from procedure on 09/30/[address] Trujillo. Jen Ruiz RN N DRIVER documented in this encounter OR Notes OR Anesthesia - Sal Trujillo DPM - 10/01/2012 9:43 AM CST N DRIVER documented in this encounter Miscellaneous Notes [...] DPM MT: #[id number] Name: ELDA HENDRICKS Account: [id number] : 1940 Procedure Date: 09/30/2012 Document: [id number] cc: Ramiro Walker MD N DRIVER Brief Op Note - Sal Trujillo DPM - 09/30/2012 1:01 PM CST [facility] Podiatry/Foot and Ankle Surgery Brief Operative Note Pre-operative diagnosis: Painful Internal Fixation left foot Painful recurrence of toenail right great toe Post-operative diagnosis same Procedure: Procedure(s): Hardware Removal left foot - Deep Surgical matrixectomy right great toe Surgeon: SAL TRUJILLO DPM Assistants(s): Anesthesia: MAC Estimated blood loss: 5 cc N DRIVER documented in this encounter Plan of Treatment Not on filedocumented as of this encounter Procedures Procedure Name Priority Date/Time Associated Diagnosis Comme nts XR FOOT PORT LEFT 3 Routine 09/30/2012 1:44 PM Re sults for this VIEWS WAGON DRIVER procedure are i n the results section. EXCISION, TOENAIL 09/30/2012 11:41 AM painful internal WAGON DRIVER fixation left foot Special Needs 5'# Hx MRSA REMOVAL, HARDWARE, FOOT 09/30/2012 11:41 AM WAGON DRIVER painfu l internal fixation left foot Special Needs 5# Hx MRSA EKG 12-LEAD, TRACING ONLY Routine 09/30/2012 11:38 AM WAGON DRIVER Results for this procedure are in the resu lts section. HIM ECG SCAN Routine 09/30/2012 documented in this encounter Results X-ray LEFT Foot 3 vw port (09/30/2012 1:44 PM WAGON DRIVER) Anatomical Region Laterality Modality Left Foot Left Other Specimen (Source) Anatomical Collection Method Collection Time Re ceived Time Location / / Volume Laterality 09/30/2012 1:44 PM WAGON DRIVER Impressions 10/01/2012 10:47 AM WAGON DRIVER IMPRESSION: Postoperative and degenerative change. No acute abnormality. ODILON RANDOLPH MD Narrative 10/01/2012 10:47 AM WAGON DRIVER LEFT FOOT THREE OR MORE VIEWS PORTABLE [...] EKG 12-lead, tracing only (09/30/2012 11:38 AM WAGON DRIVER) Component Value Ref Range Test Analysis Performed Pathologis t Method Time At Signature Ventricular Rate 64 BPM RADIOLOGY RESULTS Atrial Rate 64 BPM RADIOLOGY RESULTS [place] Interval 154 ms RADIOLOGY RESULTS QRS Duration 80 ms RADIOLOGY RESULTS QT 410 ms RADIOLOGY RESULTS QTc 422 ms RADIOLOGY RESULTS P [place] -1 degrees RADIOLOGY RESULTS R AXIS -9 degrees RADIOLOGY RESULTS T [place] -7 degrees RADIOLOGY RESULTS Interpretation Sinus rhythm [...] / / Volume Laterality 09/30/2012 11:38 AM WAGON DRIVER Doctor Unknown MD ECG ORDERABLES Performing Organization Address City/State/ZIP Code Phon e Number RADIOLOGY RESULTS ECG - HIM ECG Scan (09/30/2012) Narrative This result has an attachment that is no t available. Sal Trujillo DPM ECG ORDERABLES documented in this encounter Visit Diagnoses Diagnosis Aftercare following surgery of the [facility], NEC - Primary documented in this encounter Administered Medications Inactive Administered Medications - up to 3 most recent administrations Medication Order MAR Action Action Date Dose Rate Site fentaNYL (SUBLIMAZE) injection Given 09/30/2012 2:16 PM WAGON DRIVER 50 m cg 25-50 mcg 25-50 mcg, Intravenous, EVERY 2 MIN PRN, other, acute pain, Starting on Yesenia 09/30/12 at 1251, MAX cumulative dose = 250 mcg. Use Fentanyl initially, as a short acting agent for acute pain control. If insufficient, or a longer acting agent is needed, begin Morphine or Hydromorphone if ordered., PACU Given 09/30/2012 1:33 PM WAGON DRIVER 50 mcg HYDROcodone-acetaminophen 5-325 MG per Given 09/30/2012 2:16 PM WAGON DRIVER 1 tablet tablet 1-2 tablet 1-2 tablet, Oral, ONCE, On Yesenia 09/30/12 at 1330, For 1 dose, One time prior to discharge., Post-procedure lactated ringers infusion New Bag 09/30/2012 1:33 PM WAGON DRIVER 1,000 mLs 100 mL/hr at 100 mL/hr, Intravenous, CONTINUOUS, Continue until IV catheter is weaned, PACU, Starting on Yesenia 09/30/12 at 1300, Until Yesenia 09/30/12 at 1723 documented in this encounter Active and Recently Administered Medications Times are shown in WAGON DRIVER. Scheduled Medication Order 09/28/2012 09/29/2012 09/30/2012 HYDROcodone-acetaminophen [...] 1152 (Given - Provider: Lety Guzman APRN CRNA) Routine, 900 mg, Intravenous, EVERY 6 HO [...] Provider: Nai Galarza, JOSE)[phone] (Given - Provider: Nia Galarza, JOSE) 25-50 mcg, Intravenous, EVERY 2 [...] Intra-procedure documented in this encounter Care Teams Legal Document Assistant Relationship Specialty Start Date End Date Primary Dipak Kasper MD PCP - General 09/21/1204/18 documented as of this encounter
--- OUTSIDE RECORDS SUMMARY | 2022-07-31 14:01 | XMS_ITS | Encounter Summary ---
:1940 Author Organization [facility] Address [address] [place] [address] Care Team Providers Name Role Phone Unavailable Primary Care Provider Unavailable Reason for Visit Reason Onset Date Comments Surgical Followup 02/08/2011 Encounter Details Date Type Department Care Team Description 02/08/2011 Telephone [facility] Sal Chaparro, Surgical Followup [place] DPM [address] [place] [address] [facility] 100 [place], [place] [address] (Wo rk) Social History Tobacco Use Types [...]
--- OUTSIDE RECORDS SUMMARY | 2022-07-31 14:01 | XMS_ITS | Encounter Summary ---
:1940 Author Organization [facility] Address [address] [place] [address] Care Team Providers Name Role Phone Unavailable Primary Care Provider Unavailable Reason for Visit Reason Comments Surgical Followup left foot post op. Encounter Details Date Type Department Care Team Description 09/17/2011 Office Visit [facility] Sal hCaparro aftercare Clinic [place] ADALID Castellanos (Primary Dx) [address] [place] [phone] [place] [address] Social History Tobacco Use Types Packs/Day Years Used Date Smoking Tobacco: Unknown Alcohol Use Standard Drinks/Week Comments Not Asked [...] a regular shoe on lt. F/U prn. LAY MECHANIC documented in this encounter Nursing Notes 09/17/2011 [...] Surgery aftercar e Results for this VIEWS DISPLAY MECHANIC procedure are i n the results section. documented in this encounter Results X-ray lt Foot G/E 3 vws* (09/17/2011 9:01 AM DISPLAY MECHANIC) Anatomical Region Laterality Modality Foot, Ankle Left Other Specimen (Source) Anatomical Collection Method Collection Time Re ceived Time Location / / Volume Laterality 09/17/2011 9:01 AM DISPLAY MECHANIC Impressions 09/17/2011 11:23 AM DISPLAY MECHANIC FOOT THREE OR MORE VIEWS LEFT Sep 17 9:01 AM HISTORY: Surgery aftercare. COMPARISON: 07/16/2011. FINDINGS: Status post fixation of a seco nd metatarsal fracture with a bridging cortical plate and screws, as b efore. Alignment remains near anatomic and hardware is intact. No sign ificant change from prior examination. No new acute bony abnormali ties. Sal Chaparro DPM IMG DIAGNOSTIC IMAGING ORDER BRAYDEN documented in this encounter Visit Diagnoses Diagnosis Surgery aftercare - Primary Other specified aftercare following surg anai documented in this encounter
--- OUTSIDE RECORDS SUMMARY | 2022-07-31 14:01 | XMS_ITS | Encounter Summary ---
:1940 Author Organization [facility] Address [address] [place] [address] Care Team Providers Name Role Phone Unavailable Primary Care Provider Unavailable Reason for Visit Reason Comments Surgical Followup 02/06 left foot post op. Encounter Details Date Type Department Care Team Description 06/04/2011 Office Visit [facility] Sal Chaparro aftercare (Primary Dx); Clinic Yumiko Castellanos DPM [place] [address] [facility] [place] [phone] [place] [address] Social History Tobacco Use Types [...] Notes 06/04/2011 8:45 AM CDT >> MELL MAGANA Wed Jun 04, 2011 9:26 AM Patient presents [...]
--- OUTSIDE RECORDS SUMMARY | 2022-07-31 14:01 | XMS_ITS | Encounter Summary ---
:1940 Author Organization [facility] Address [address] [place] [address] Care Team Providers Name Role Phone Primary Dr, Unknown Primary Care Provider Unavailable Reason for Visit Auth/Cert - Closed Specialty Diagnoses / Procedures Referred By Contact Refer red To Contact Surgery Diagnoses painful internal fixation left foot Rh Periop Services Procedures REMOVE HARDWARE FOOT [address] [place], [place] [address] Phone: Fax: Referral ID Status Reason Start Date Expiration Date Visits Requ ested Visits Authorized [id number] Closed 1 1 Encounter Details Date Type Department Care Team Description 09/30/2012 Surgery [facility] Daniel Trujillo har dware removel left [place] [facility] es D[facility] [address] [facility] [address] [facility] 100 [address] [place], [place] [id number] (Wo rk) Surgery Details Date/Time Status Location OR Service Patient Case Class Case Tr auma Class Type Case? 09/30/12 11:30 Posted OR OR Podiatry Same Day AM Surgery Panel 1 Procedure LRB Anes Op Region Wound Class Commen ts hardware removel left foot Left MAC Foot I-Clean hardware removel left foot EXCISION, TOENAIL Right MAC Toe I-Clean Surgeon Surgeon Role Service Panel Daniel Trujillo, DPM Primary Podiatry 1 Special Needs # Hx [...] Comments Blood Pressure 137/81 09/30/2012 10:30 AM PLACEMENT SECRETARY Pulse - - Temperature 35.9 ??C (96.6 ??F) 09/30/2012 10:24 AM PLACEMENT SECRETARY Respiratory Rate 20 09/30/2012 10:24 AM PLACEMENT SECRETARY Oxygen Saturation 98% 09/30/2012 10:24 AM PLACEMENT SECRETARY Inhaled Oxygen Concentration - - Weight 93 kg (205 lb) 09/30/2012 10:24 AM PLACEMENT SECRETARY Height 170.2 cm (5' 7) 09/30/2012 10:24 AM PLACEMENT SECRETARY Body Mass Index 32.11 09/30/2012 10:24 AM PLACEMENT SECRETARY documented in this encounter Discharge Instructions Discharge [...] DR. DANIEL TRUJILLO M.D. CLINIC PHONE NUMBER: [phone]. EMENT SECRETARY documented in this encounter Medications at Time [...] Trujillo DPM - 09/23/2012 4:09 PM CST EMENT SECRETARY documented in this encounter Nursing Notes Iwona Ruiz RN - 09/30/2012 12:33 PM CST First Panel started at 1210 and ended at 1230. Second panel started at 1230 and ended at 1237. Jen Ruiz RN EMENT SECRETARY Iwona Ruiz RN - 09/30/2012 12:22 PM CST Patient did not want his hardware that was removed from procedure on 09/30/[address] Trujillo. Jen Ruiz RN EMENT SECRETARY documented in this encounter OR Notes OR Anesthesia - Daniel Trujillo DPM - 10/01/2012 9:43 AM CST EMENT SECRETARY documented in this encounter Miscellaneous Notes Op [...] DPM MT: [id number] Name: ELDA HENDRICKS Account: [id number] : 1940 Procedure Date: 09/30/2012 Document: [id number] cc: Ramiro Walker MD EMENT SECRETARY Brief Op Note - Daniel Trujillo DPM - 09/30/2012 1:01 PM CST [facility] Podiatry/Foot and Ankle Surgery Brief Operative Note Pre-operative diagnosis: Painful Internal Fixation left foot Painful recurrence of toenail right great toe Post-operative diagnosis same Procedure: Procedure(s): Hardware Removal left foot - Deep Surgical matrixectomy right great toe Surgeon: DANIEL TRUJILLO DPM Assistants(s): Anesthesia: MAC Estimated blood loss: 5 cc EMENT SECRETARY documented in this encounter Plan of Treatment Not on filedocumented as of this encounter Procedures Procedure Name Priority Date/Time Associated Diagnosis Comme nts XR FOOT PORT LEFT 3 Routine 09/30/2012 1:44 PM Re sults for this VIEWS PLACEMENT SECRETARY procedure are i n the results section. EXCISION, TOENAIL 09/30/2012 11:41 AM painful internal PLACEMENT SECRETARY fixation left foot Special Needs # Hx MRSA REMOVAL, HARDWARE, FOOT 09/30/2012 11:41 AM PLACEMENT SECRETARY painfu l internal fixation left foot Special Needs # Hx MRSA EKG 12-LEAD, TRACING ONLY Routine 09/30/2012 11:38 AM PLACEMENT SECRETARY Results for this procedure are in the resu lts section. HIM ECG SCAN Routine 09/30/2012 documented in this encounter Results X-ray LEFT Foot 3 vw port (09/30/2012 1:44 PM PLACEMENT SECRETARY) Anatomical Region Laterality Modality Left Foot Left Other Specimen (Source) Anatomical Collection Method Collection Time Re ceived Time Location / / Volume Laterality 09/30/2012 1:44 PM PLACEMENT SECRETARY Impressions 10/01/2012 10:47 AM PLACEMENT SECRETARY IMPRESSION: Postoperative and degenerative change. No acute abnormality. ODILON RANDOLPH MD Narrative 10/01/2012 10:47 AM PLACEMENT SECRETARY LEFT FOOT THREE OR MORE VIEWS PORTABLE [...] EKG 12-lead, tracing only (09/30/2012 11:38 AM PLACEMENT SECRETARY) Component Value Ref Range Test Analysis Performed Pathologis t Method Time At Signature Ventricular Rate 64 BPM RADIOLOGY RESULTS Atrial Rate 64 BPM RADIOLOGY RESULTS [place] Interval 154 ms RADIOLOGY RESULTS QRS Duration 80 ms RADIOLOGY RESULTS QT 410 ms RADIOLOGY RESULTS QTc 422 ms RADIOLOGY RESULTS P [place] -1 degrees RADIOLOGY RESULTS R AXIS -9 degrees RADIOLOGY RESULTS T [place] -7 degrees RADIOLOGY RESULTS Interpretation Sinus rhythm [...] / / Volume Laterality 09/30/2012 11:38 AM PLACEMENT SECRETARY Doctor Unknown ECG ORDERABLES Performing Organization Address City/State/ZIP Code Phon e Number RADIOLOGY RESULTS ECG - HIM ECG Scan (09/30/2012) Narrative This result has an attachment that is no t available. Daniel Trujillo DPJami ECG ORDERABLES documented in this encounter Visit Diagnoses Not on filedocumented in this encounter Administered Medications Inactive Administered Medications - up to 3 most recent administrations Medication Order MAR Action Action Date Dose Rate Site bupivacaine (MARCAINE) Given 09/30/2012 12:38 15 mLs Operative injection 0.5% (PF) PM PLACEMENT SECRETARY Site/Surgical S ite PRN, Starting on Yesenia 09/30/12 at 1238, Intra-procedure fentaNYL (SUBLIMAZE) injection 25-50 mcg Given 09/30/2012 2:16 PM PLACEMENT SECRETARY 50 mcg 25-50 mcg, Intravenous, EVERY 2 MIN PRN, other, acute pain, Starting on Yesenia 09/30/12 at 1251, MAX cumulative dose = 250 mcg. Use Fentanyl initially, as a short acting agent for acute pain control. If insufficient, or a longer acting agent is needed, begin Morphine or Hydromorphone if ordered., PACU Given 09/30/2012 1:33 PM PLACEMENT SECRETARY 50 mcg HYDROcodone-acetaminophen 5-325 MG per Given 09/30/2012 2:16 PM PLACEMENT SECRETARY 1 tablet tablet 1-2 tablet 1-2 tablet, Oral, ONCE, On Yesenia 09/30/12 at 1330, For 1 dose, One time prior to discharge., Post-procedure lactated ringers infusion New Bag 09/30/2012 1:33 PM PLACEMENT SECRETARY 1,000 mLs 100 mL/hr at 100 mL/hr, Intravenous, CONTINUOUS, Continue until IV catheter is weaned, PACU, Starting on Yesenia 09/30/12 at 1300, Until Yesenia 09/30/12 at 1723 lidocaine (PF) (XYLOCAINE) Given 09/30/2012 12:40 PM 4 mLs Operative Site/Surgical 1 % injection PLACEMENT SECRETARY Site PRN, Starting on Yesenia 09/30/12 at 1238, Intra-procedure sodium chloride 0.9% Given 09/30/2012 12:41 PM 100 mLs Operative Site/Surgical (bottle) irrigation PLACEMENT SECRETARY Site PRN, Starting on Yesenia 09/30/12 at 1241, Area to irrigate and instructions: ., Intra-procedure documented in this encounter Active and Recently Administered Medications Times are shown in PLACEMENT SECRETARY. Scheduled Medication Order 09/28/2012 09/29/2012 09/30/2012 HYDROcodone-acetaminophen [...] 1152 (Given - Provider: Lety Guzman APRN FASHION DESIGN PROFESSOR) Routine, 900 mg, Intravenous, EVERY 6 HO [...] Intra-procedure documented in this encounter Care Teams Planning Director Relationship Specialty Start Date End Date Primary Dipak Kasper MD PCP - General 09/21/1204/18 documented as of this encounter
--- OUTSIDE RECORDS SUMMARY | 2022-07-31 14:01 | XMS_ITS | Encounter Summary ---
:1940 Author Organization [facility] Address [address] [place] [address] Care Team Providers Name Role Phone Unavailable Primary Care Provider Unavailable Encounter Details Date Type Department Care Team Description 08/05/2012 Telephone [facility] Sal Chaparro DPM [address] [place] [phone] [place] [address] [place] [address] (Wo rk) Social History Tobacco Use Types [...] outlook. Date/Time: 09/30/2012 @ 12:50 pm Hospital: [facility] Anesthesia: MAC Surgeon: Juana CourtneyPNomanMNoman Preop:Unknown Consent: Hardware removal left foot Surgeon Procedure Time: 30 min Anesthesia: MAC Location: [facility] Pre-Operative Medications: Clindamycin 900 mg IV pre-op Special Instrumentation: Synthes mini locking plate screw p d driver Electronically signed by Sal F. Krysta,DPM Advised NPO after midnight on the day [...]
--- OUTSIDE RECORDS SUMMARY | 2022-07-31 14:01 | XMS_ITS | Encounter Summary ---
:1940 Author Organization [place] [facility] Address [address] [place] [address] Care Team Providers Name Role Phone Unavailable Primary Care Provider Unavailable Encounter Details Date Type Department Care Team Description 02/06/2011 Results [facility] Tiffanie meadows, Sal Castellanos, [facility] Hospital Results [address] [place], [place] [address] (Wo rk) Social History Tobacco [...] 3 vw port (02/06/2011 1:12 PM CDT) Anatomical Region Laterality Modality Left Foot Left Other Specimen (Source) Anatomical Collection Method Collection Time Re ceived Time Location / / Volume Laterality 02/06/2011 1:12 PM CDT Impressions 02/06/2011 2:37 PM CDT FOOT G/E 3VW PORTABLE LEFT ??Feb 06 1 1:12:00 PM HISTORY: ??Post operative. COMPARISON: ??01/29/2011. IMPRESSION: Sideplate with supporting sc rew across a distal second metatarsal osteotomy. A pin traverses th e phalanges of the second toe. Alignment appears satisfactory. Sal Chaparro DPJami IMG DIAGNOSTIC IMAGING ORDER BRAYDEN documented in this encounter Visit Diagnoses Not on filedocumented in this encounter
--- OUTSIDE RECORDS SUMMARY | 2022-07-31 14:01 | XMS_ITS | Encounter Summary ---
:1940 Author Organization [facility] Address [facility] [place] [address] Care Team Providers Name Role Phone Unavailable Primary Care Provider Unavailable Reason for Visit Reason Comments Surgical Followup 02/06/11 post op left foot wi th hardware. pt is having pain. Encounter Details Date Type Department Care Team Description 07/30/2012 Office Visit [facility] Sal Chaparro pa in (Primary Dx); Yariel Castellanos DPM Enthesopathy of unspecified site [address] [place] [address] E [phone] [facility] 100 [place], [place] [address] Social History Tobacco Use Types [...] Procedure Time: 30 min Anesthesia: MAC Location: [facility] Pre-Operative Medications: Clindamycin 900 mg IV pre-op Special Instrumentation: Synthes mini locking plate screw local delivery truck driver documented in this encounter Nursing [...]
--- OUTSIDE RECORDS SUMMARY | 2022-07-31 14:01 | XMS_ITS | Encounter Summary ---
:1940 Author Organization [place] Address [address] [place] [address] Care Team Providers Name Role Phone Primary Dr, Unknown Primary Care Provider Unavailable Reason for Visit Reason Comments Surgical Followup bilateral post op Encounter Details Date Type Department Care Team Description 10/22/2012 Office Visit [facility] Sal Chaparro Afterca re following Yariel Castellanos DPM surgery of the [address] [place] [address] musculoskeletal system, [place] [address] E NEC (Primary Dx) [phone] [address] [place], [place] [address] Social History Tobacco Use Types [...] 93 kg (205 lb) 10/22/2012 9:14 AM TELEGRAPHIC SERVICE DISPATCHER Height 170.2 cm (5' 7) 10/22/2012 9:14 AM TELEGRAPHIC SERVICE DISPATCHER Body Mass Index 32.11 10/22/2012 9:14 AM TELEGRAPHIC SERVICE DISPATCHER documented in this encounter Progress Notes Sal [...] questions or concerns and follow-up in prn. GRAPHIC SERVICE DISPATCHER documented in this encounter Nursing Notes 10/22/2012 9:00 AM CST >> MELL MAGANA Fri Oct 22, 2012 9:14 AM Patient presents with: Surgical Followup - bilateral post op Mell Magana CMA documented in this encounter Plan of Treatment Not on filedocumented as of this encounter Visit Diagnoses Diagnosis Aftercare [facility], NEC - Primary documented in this encounter Care Teams Manager Willow Relationship Specialty Start Date End Date Primary Dipak Kasper MD PCP - General 09/21/1204/18 documented as of this encounter
--- OUTSIDE RECORDS SUMMARY | 2022-07-31 14:01 | XMS_ITS | Encounter Summary ---
:1940 Author Organization [place] Address [address] [place] [address] Care Team Providers Name Role Phone Primary Dipak Kasper MD Primary Care Provider Unavailable Celina Coley [facility] [place] Primary Care Provider [phone] Jon White MD Unavailable [phone] Ramiro Loco MD Unavailable Encounter Details Date Type Department Care Team Description 04/18/2014 [facility] Provider, [facility] Health Information Management [address] [place] [address] [address] [place] [address] Social History Tobacco Use Types Packs/Day Years [...] documented as of this encounter Care Teams Suction Worker Relationship Specialty Start Date End Date Primary Dipak Kasper MD PCP - General 09/21/1204/18 Celina Coley PCP - General Family Practice 05/05/17 05/11/[address] [address] Kehinde Portillo PCP - General 05/12/17 [place] [address] [place], [place] [id number] Jon White Assigned Surgical Provider 08/10/20 12/08/20 MD [place] [address] [place], [place] [phone] Ramiro Loco MD Assigned Heart and 08/10/20 05/11/21 [address] [place] [address] Vascular Provider [place]O GORDON [address] documented as of this encounter
--- OUTSIDE RECORDS SUMMARY | 2022-07-31 14:01 | XMS_ITS | Encounter Summary ---
:1940 Author Organization [place] Address [address] [place] [address] Care Team Providers Name Role Phone Unavailable Primary Care Provider Unavailable Encounter Details Date Type Department Care Team Description 02/06/[address] [facility] Daniel Trujillo, (Steam Box Tender) [facility] DPM Results [address] [place], [place] [address] (Wo rk) Social History Tobacco [...] medial and laterally and with a small Minto blade, I was able to carefully dissect [...] DPM MT: [id number] Name: SPEEDY MCDUFFIE Account: [id number] : 1940 Procedure Date: 02/06/2011 Document: [id number] cc: Michelle Hedrick MD documented in this encounter Plan of Treatment Not on filedocumented as of this encounter Visit Diagnoses Not on filedocumented in this encounter
--- OUTSIDE RECORDS SUMMARY | 2022-07-31 14:01 | XMS_ITS | Encounter Summary ---
:1940 Author Organization [place] Address [address] [place] [address] Care Team Providers Name Role Phone Primary Dr, Dipak WELSH Primary Care Provider Unavailable Reason for Visit Reason Onset Date Comments Patient/info Update 10/04/2012 Encounter Details Date Type Department Care Team Description 10/04/2012 Telephone [facility] Sal Chaparro, Patient/info Update Yumiko WELSH MD [address] [facility] [phone] [facility] [phone] [place] [id number] (Wo rk) Social History Tobacco Use Types Packs/Day Years Used Date Smoking Tobacco: Former Comments: quit 1984 Alcohol Use Standard Drinks/Week Comments Yes 0 (1 standard drink = 0.6 oz pure alcoho l) 10 per week Sex Assigned at Date Recorded Not on file documented as of this encounter Miscellaneous Notes Telephone Encounter - Sal Chaparro DPM - 10/05/2012 11:14 AM GREEN MATERIAL VALUE ADDED ASSESSOR Spoke w/ pt and we will check him today (10/05/12) @ 11:30 N MATERIAL VALUE ADDED ASSESSOR Telephone Encounter - Amber Mead - 10/04/2012 11:[address] Dr. Chaparro, GALILEA. Please read. Message below. Let me know if I can assist at all. Amber Mead CMA ([facility]) N MATERIAL VALUE ADDED ASSESSOR Telephone Encounter - Sandra Melgar - 10/04/2012 10:[address] Nesbitt has placed this rx. Rx faxed. Jaime Melgar CMA ([facility]) N MATERIAL VALUE ADDED ASSESSOR Telephone Encounter - Amber Mead - 10/04/2012 [...] but patient feels lousy Spoke with DPM communications equipment installer, Dr. Green. He recommended Bactrim DS BID x 10 days Called RX into [facility] per patient's daughter request. Called Raquel back and left message on cell phone ([phone]), offered 230 appointment in [place] with Dr. Green if would like. Otherwise, f/u with Dr. Chaparro this week. Patient's daughter is requesting refill of [place] [phone] - , can you approve and I can call in? Amber Mead CMA ([facility]) N MATERIAL VALUE ADDED ASSESSOR documented in this encounter Plan of Treatment Not on filedocumented as of this encounter Visit Diagnoses Diagnosis Ingrowing nail - Primary Pain in limb documented in this encounter Care Teams Data Center Architect Relationship Specialty Start Date End Date Primary Dipak Kasper MD PCP - General 09/21/1204/18 documented as of this encounter
--- OUTSIDE RECORDS SUMMARY | 2022-07-31 14:01 | XMS_ITS | Encounter Summary ---
:1940 Author Organization [place] Address [address] [place] [address] Care Team Providers Name Role Phone Unavailable Primary Care Provider Unavailable Reason for Visit Reason Comments Surgical Followup 02/06 post op left foot 2nd m etatarsal Fx. Encounter Details Date Type Department Care Team Description 03/05/2011 Office Visit [facility] Sal Chaparro aftercare Clinic Yumiko Castellanos DPM (Primary Dx) [address] [place] [phone] [place] [address] Social History Tobacco Use Types [...] toe s of the second digit. Sal Chaparro DPM IMG DIAGNOSTIC IMAGING ORDER BRAYDEN documented in this encounter Visit Diagnoses Diagnosis Surgery aftercare - Primary Other specified aftercare following surg anai documented in this encounter
--- OUTSIDE RECORDS SUMMARY | 2022-07-31 14:01 | XMS_ITS | Encounter Summary ---
:1940 Author Organization [place] Address [address] [place] [address] Care Team Providers Name Role Phone Primary Dr, Unknown Primary Care Provider Unavailable Reason for Visit Reason Onset Date Comments Call To Schedule Appointment 10/08/2012 Encounter Details Date Type Department Care Team Description 10/08/2012 Telephone [facility] Sal Chaparro, Call To Schedule [address] [facility] [place] [address] 1021 [facility] [phone] [facility] 100 [place], [place] [address] (Wo rk) Social History Tobacco Use Types [...] Is scheduled for 10/22/12. Marianne Kim RN ACT WORKER Telephone Encounter - Sal Chaparro, DPM - 10/08/2012 10:28 AM CONTACT WORKER Marianne, Would recommend F/U appt either Dr. Nesbitt or myself in 2-3 wks. ACT WORKER Telephone Encounter - Brittany Phan - 10/08/2012 10:08 AM CST Pt no showed appt today and you are off next week do you want him to f/u with another provider or see you the following week? ACT WORKER Telephone Encounter - eNlida Davalos - 10/08/2012 7:53 AM CST Patient was told to schedule an appointment two weeks after operation which would be on ThursdayOctober 22. Dr. Chaparro stated he would like to see patient exactly two weeks after operation and to fit him into the schedule. Please contact patient to schedule appointment. Thank you, Nelida Lopez Central Scheduling ACT WORKER documented in this encounter Plan of Treatment Not on filedocumented as of this encounter Visit Diagnoses Not on filedocumented in this encounter Care Teams Stenographer Secretary Relationship Specialty Start Date End Date Primary Dipak Kasper MD PCP - General 09/21/1204/18 documented as of this encounter
--- OUTSIDE RECORDS SUMMARY | 2022-07-31 14:01 | XMS_ITS | Encounter Summary ---
:1940 Author Organization [place] Address [address] [facility] [place] [address] Care Team Providers Name Role Phone Unavailable Primary Care Provider Unavailable Reason for Visit Reason Comments Surgical Followup 02/06 left foot surgery. Seco nd metatarsal fracture nonunion, left foot Encounter Details Date Type Department Care Team Description 04/30/2011 Office Visit [facility] Sal Chaparro aftercare Clinic Yumiko Castellanos DPM (Primary Dx) [address] [place] [phone] [place] [address] [phone] Social History Tobacco Use Types Packs/Day Years [...] Notes 04/30/2011 9:00 AM CDT >> MELL MAAGNA Wed Apr 30, 2011 9:00 AM Patient [...]
--- OUTSIDE RECORDS SUMMARY | 2022-07-31 14:01 | XMS_ITS | Encounter Summary ---
:1940 Author Organization [place] Address [address] [place] [address] Care Team Providers Name Role Phone Primary Dr, Unknown Primary Care Provider Unavailable Reason for Visit Reason Comments Surgical Followup bilat infections Encounter Details Date Type Department Care Team Description 10/05/2012 Office Visit [facility] Sal Chaparro [facility] are following Clinic [place] F, DPM surgery of the [address] [place] [address] musculoskeletal system, [place], [place] E NEC (Primary Dx) [phone] [place] [address] [place], [place] [address] Social History Tobacco Use Types [...] Comments Blood Pressure 136/80 10/05/2012 12:04 PM PIPE SMOKER MACHINE OPERATOR Pulse 60 10/05/2012 12:04 PM PIPE SMOKER MACHINE OPERATOR Temperature 36.8 ??C (98.2 ??F) 10/05/2012 12:04 PM PIPE SMOKER MACHINE OPERATOR Respiratory Rate - - Oxygen Saturation - - Inhaled Oxygen Concentration - - Weight 93 kg (205 lb) 10/05/2012 12:04 PM PIPE SMOKER MACHINE OPERATOR Height 170.2 cm (5' 7) 10/05/2012 12:04 PM PIPE SMOKER MACHINE OPERATOR Body Mass Index 32.11 10/05/2012 12:04 PM PIPE SMOKER MACHINE OPERATOR documented in this encounter Progress [...] or concerns and follow-up in 1-2 wks. SMOKER MACHINE OPERATOR documented in this encounter Plan of Treatment Not on filedocumented as of this encounter Procedures Procedure Name Priority Date/Time Associated Diagnosis Comme nts CBC WITH PLATELETS & Routine 10/05/2012 12:21 Aftercare follow ing Results for this DIFFERENTIAL PM PIPE SMOKER MACHINE OPERATOR surgery of the procedure are in musculoskeletal system, the results NEC section. URIC ACID Routine 10/05/2012 12:21 Aftercare following Resu lts for this PM PIPE SMOKER MACHINE OPERATOR surgery of the procedure are in musculoskeletal system, the results NEC section. BASIC METABOLIC Routine 10/05/2012 12:21 Aftercare following R esults for this PANEL PM PIPE SMOKER MACHINE OPERATOR surgery of the procedure are in musculoskeletal system, the results NEC section. WOUND CULTURE Routine 10/05/2012 12:20 Aftercare following Res ults for this AEROBIC BACTERIAL PM PIPE SMOKER MACHINE OPERATOR surgery of the procedur e are in musculoskeletal system, the results NEC section. documented in this encounter Results (ABNORMAL) Basic metabolic panel (Ca, Cl, CO2, Creat, Gluc, K, Na, BUN) (10/05/2012 12:21 PM PIPE SMOKER MACHINE OPERATOR) Analysis Performed At Patho logist Time Signature Sodium 140 133 - 144 [place] mmol/L [facility] Potassium 4.8 3.4 - 5.3 [place] mmol/L [facility] Chloride 103 94 - 109 [place] mmol/L [facility] Carbon Dioxide 25 20 - 32 [place] mmol/L [facility] Anion Gap 12 6 - 17 [place] mmol/L [facility] Glucose 108 (H) 60 - 99 [place] mg/dL [facility] Urea Nitrogen 23 7 - 30 [place] mg/dL [facility] Creatinine 1.41 (H) 0.66 - [facility] 1.25 mg/dL [facility] GFR Estimate 50 (L) >60 [place] mL/min/1.7 [facility] m2 LAB GFR Estimate If 60 (L) >60 [place] Black mL/min/1.7 [facility] m2 LAB Calcium 9.5 8.5 - 10.4 [place] mg/dL [facility] Specimen Anatomical Collection Method Collection Time Receive d Time (Source) Location / / Volume Laterality Blood specimen 10/05/2012 12:21 2 (specimen) PM PIPE SMOKER MACHINE OPERATOR 12:22 PM PIPE SMOKER MACHINE OPERATOR Sal Chaparro DPM LAB - BLOOD ORDERABLES Performing Organization Address City/State/ZIP Code Phon e Number [address] [address] [facility] (ABNORMAL) CBC with platelets and differential (10/05/2012 12:21 PM PIPE SMOKER MACHINE OPERATOR) [facility] Method Time Signature WBC 7.8 4.0 - [facility] 11.0 [facility] 10e9/L CLINIC LAB RBC Count 4.45 4.4 - 5.9 [facility] 10e12/L [facility] Hemoglobin 14.6 13.3 - [facility] 17.7 g/dL [facility] Hematocrit 43.2 40.0 - [facility] 53.0 % [facility] MCV 97 78 - 100 [facility] fl [facility] MCH 32.8 26.5 - [facility] 33.0 pg [facility] MCHC 33.8 31.5 - [facility] 36.5 g/dL [facility] RDW 12.9 10.0 - [facility] 15.0 % [facility] Platelet Count 152 150 - 450 [place] 10e9/L [facility] Diff Method Automated [place] Method [facility] % Neutrophils 62.1 40 - 75 % [facility] % Lymphocytes 18.9 (L) 20 - 48 % [facility] % Monocytes 13.4 (H) 0 - 12 % [facility] % Eosinophils 5.2 0 - 6 % [facility] % Basophils 0.4 0 - 2 % [facility] Absolute 4.9 1.6 - 8.3 [place] Neutrophil 10e9/L [facility] Absolute 1.5 0.8 - 5.3 [place] Lymphocytes 10e9/L [facility] Absolute 1.1 0.0 - 1.3 [place] Monocytes 10e9/L [facility] Absolute 0.4 0.0 - 0.7 [place] Eosinophils 10e9/L [facility] Absolute 0.0 0.0 - 0.2 [place] Basophils 10e9/L [facility] Specimen Anatomical Collection Method Collection Time Receive d Time (Source) Location / / Volume Laterality Blood specimen 10/05/2012 12:21 2 (specimen) PM PIPE SMOKER MACHINE OPERATOR 12:22 PM PIPE SMOKER MACHINE OPERATOR Sal Chaparro [facility] - BLOOD ORDERABLES Performing Organization Address City/[facility]/ZIP Code Phon e Number [facility] [id number] [place] [address] [facility] Uric acid (10/05/2012 12:21 PM PIPE SMOKER MACHINE OPERATOR) P athologist Signature Uric Acid 7.1 3.5 - 8.5 [facility] mg[facility]dL CLINIC LAB Specimen Anatomical Collection Method Collection Time Receive d Time (Source) Location / / Volume Laterality Blood specimen 10/05/2012 12:21 2 (specimen) PM PIPE SMOKER MACHINE OPERATOR 12:22 PM PIPE SMOKER MACHINE OPERATOR Sal Chaparro DP LAB - BLOOD ORDERABLES Performing Organization Address [facility] Phon e Number [facility] [address] [place] [address] [facility] Wound culture (10/05/2012 12:20 PM PIPE SMOKER MACHINE OPERATOR) [facility] gist Method Time Signature Specimen Other [facility] Culture Micro No growth [facility] MICROBIOLOGY Micro Report FINAL [facility] Status 10/07/2012 MICROBIOLOGY Specimen Anatomical Collection Method Collection Time Receive d Time (Source) Location / / Volume Laterality Specimen from 10/05/2012 12:20 10/05/2012 wound (specimen) PM PIPE SMOKER MACHINE OPERATOR 12:41 PM CS T Sal [facility] LAB - MICRO GENERAL ORDERABL ES Performing Organization Address City/State/ZIP Code Phon e Number [address] LAB [facility] MICROBIOLOGY documented in this encounter Visit Diagnoses Diagnosis Aftercare following surgery of the muscu loskeletal system, NEC - Primary documented in this encounter Care Teams Machined Parts Quality Inspector Relationship Specialty Start Date End Date Primary Dipak Kasper, PCP - General 09/21/1204/18 documented as of this encounter
--- OUTSIDE RECORDS SUMMARY | 2022-07-31 14:01 | XMS_ITS | Encounter Summary ---
:1940 Author Organization [place] Address [facility] [place] [address] Care Team Providers Name Role Phone Unavailable Primary Care Provider Unavailable Reason for Visit Reason Comments Surgical Followup follow up to left foot surge ry. Encounter Details Date Type Department Care Team Description 07/16/2011 Office Visit [facility] Sal Chaparro p ain (Primary Dx); Clinic Yumiko Castellanos DPM [place] [address] [place] [phone] [place] [address] Social History Tobacco Use Types [...] Notes 07/16/2011 9:00 AM CDT >> MELL Maria Jul 16, 2011 8:51 AM Patient presents [...]
--- OUTSIDE RECORDS SUMMARY | 2022-07-31 14:01 | XMS_ITS | Encounter Summary ---
:1940 Author Organization [place] Address [address] [facility] [address] Care Team Providers Name Role Phone Unavailable Primary Care Provider Unavailable Reason for Visit Reason Comments Musculoskeletal Problem pt states he broke his left great toe and 2nd toe. He is still having trouble/pain in his 2nd toe. Sx since September. Encounter Details Date Type Department Care Team Description 01/29/2011 Office Visit [facility] Sal Chaparro Fractu re, nonunion (Primary Dx); Clinic [place] F, DPM Other hammer toe (acquired); [address] [place] [address] Pain in so ft tissues of limb [place], [place] [address] [phone] [place], [place] [id number] Social History Tobacco Use Types Packs/Day Years Used Date Smoking Tobacco: Never Assessed Sex Assigned at Date Recorded Not on file documented as of this encounter Progress Notes Sal Chaparro - 01/30/2011 4:52 PM CDT Subjective: Pt is seen today as a new pt self referral with the c/c of an injury to his left foot. This happenedDe 2010. Crush type injury w/ a skid oyster unloader. Pt has been treated in [facility] [...] area. X-rays were reviewed Nov 2010 from [facility] clinic with the pt which show [...] Notes 01/29/2011 10:00 AM CDT >> MELL GARCIALEE Maria Jan 29, 2011 10:04 AM Patient presents [...]
--- OUTSIDE RECORDS SUMMARY | 2022-07-31 14:01 | XMS_ITS | Encounter Summary ---
:1940 Author Organization [place] Address [address] [place] [address] Care Team Providers Name Role Phone Unavailable Primary Care Provider Unavailable Reason for Visit Reason Onset Date Comments Patient Inquiry 02/19/2011 [facility] and Creat risi ng Encounter Details Date Type Department Care Team Description 02/19/2011 Telephone [facility] Sal Chaparro Pat iestar Inquiry ([facility] DPM and Creat rising) [address] [address] [facility] [address] [phone] Social History Tobacco Use Types Packs/Day Years [...] and call daughter Raquel with plan @ [phone]. Thanks, Aruna Arriaza RN documented in this encounter Plan of Treatment Not on filedocumented as of this encounter Visit Diagnoses Not on filedocumented in this encounter
--- OUTSIDE RECORDS SUMMARY | 2022-07-31 14:01 | XMS_ITS | Encounter Summary ---
:1940 Author Organization [place] Address [address] [place] [address] Care Team Providers Name Role Phone Unavailable Primary Care Provider Unavailable Reason for Visit Reason Comments Surgical Followup 02/06 left foot post op. Encounter Details Date Type Department Care Team Description 02/14/2011 Office Visit [facility] Sal Chaparroca re following Yariel Castellanos DPM surgery of the [facility] [address] musculoskeletal system, [place] [address] E NEC (Primary Dx) [phone] [address] [place], [place] [address] Social History Tobacco Use Types [...] Component Value Ref Test Analysis Performed At [facility] Range Method Time Signature Specimen Toe [place] Description [facility] Culture Micro Heavy growth [place] Methicillin [facility] Staphylococcus aureus (MRSA) Micro Report FINAL 02/17/2011 [place] Status [facility] Specimen Anatomical Collection Method Collection [...] Number M [facility] [address] [address] [facility] documented in this encounter Visit Diagnoses Diagnosis Aftercare following [facility] the [facility] los[facility], NEC - Primary documented in this encounter
--- OUTSIDE RECORDS SUMMARY | 2022-07-31 14:01 | XMS_ITS | Encounter Summary ---
:1940 Author Organization [place] Address [address] [place] [address] Care Team Providers Name Role Phone Unavailable Primary Care Provider Unavailable Reason for Visit Reason Comments Surgical Followup 02/06 left foot post op and r ight great toe post op. Encounter Details Date Type Department Care Team Description 04/02/2011 Office Visit [facility] Sal Chaparro aftercare Clinic Yumiko Castellanos DPM (Primary Dx) [address] [place] [address] [phone] [place], [place] [phone] Social History Tobacco Use Types Packs/Day Years [...] THREE OR MORE VIEWS LEFT Apr 02 10:09 AM HISTORY: Surgery aftercare, weightbearin g. [...] formation suggesting interval healing. Sal Chaparro DPM IMTiffani DIAGNOSTIC IMAGING ORDER BRAYDEN documented in this encounter Visit Diagnoses Diagnosis Surgery aftercare - Primary Other specified aftercare following surg anai documented in this encounter
--- OUTSIDE RECORDS SUMMARY | 2022-07-31 14:01 | XMS_ITS | Encounter Summary ---
:1940 Author Organization [place] Address [address] [place] [address]. [place] [address] Care Team Providers Name Role Phone Primary Dr, Unknown Primary Care Provider Unavailable Encounter Details Date Type Department Care Team Description 09/30/2012 Anesthesia Event [facility] Viraj Silva PeriOp Letty Tejeda MD [address] [place] [address] ANESTHESIA [phone] [facility] [address] [place], [place] [address] (Wo rk) Anesthesia Record Procedure Summary Procedure Name Responsible Anesthesia Start Anesthesia Stop Time Anesthesiologist Time hardware removel Damian Silva MD 09/30/12 1145 1248 left foot (Left: Foot) Events Date Time Event Comment 09/30/2012 [...] Type Details Placement Removal Peripheral IV 09/30/12; (MEDICAL TRANSCRIPTION EDITOR); 20 09/30/12 0000 by 09/30/12 14 45 [...] 97.00%. Additional Comments: Doing Well. Euvolemic. AKollitzMD ITE TREATER HELPER Anesthesia Preprocedure Evaluation - Damian Silva [...] benefits and alternatives discussed with: patient or sales representative supervisor. Possibility of blood products discussed. History & Physical Review History and physical reviewed; no interval change. . ITE TREATER HELPER documented in this encounter Miscellaneous Notes Anesthesia Care Transfer Note - Lety Guzman APRN CRNA - 09/30/2012 12:47 PM CST Anesthesia Care Transfer Note Patient: Speedy Hendricks Transferred to: Phase II Patient vital signs: stable Airway: none To phase 2. criteria met. ITE TREATER HELPER documented in this encounter Plan of Treatment Not on filedocumented as of this encounter Visit Diagnoses Not on filedocumented in this encounter Administered Medications Inactive Administered Medications - up to 3 most recent administrations Medication Order MAR Action Action Date Dose Rate Site clindamycin (CLEOCIN) IVPB 900 mg Given 09/30/2012 11:52 AM TERMITE TREATER HELPER 900 mg Routine, 900 mg, Intravenous, [...] fentaNYL (SUBLIMAZE) injection Given 09/30/2012 12:15 PM TERMITE TREATER HELPER 50 mcg PRN, moderate to severe pain, Starting on Yesenia 09/30/12 at 1215, Anesthesia Intra-op lactated ringers infusion New Bag 09/30/2012 11:39 AM TERMITE TREATER HELPER mL Intravenous, CONTINUOUS PRN, Anesthesia Intra-op, Starting on Yesenia 09/30/12 at 1139, Until Yesenia 09/30/12 at 1248 midazolam (VERSED) injection Given 09/30/2012 11:54 AM TERMITE TREATER HELPER 2 mg PRN, anxiety, Starting on Yesenia 09/30/12 at 1145, Anesthesia Intra-op Given 09/30/2012 11:45 AM TERMITE TREATER HELPER 2 mg propofol (DIPRIVAN) Rate/Dose 09/30/2012 12:11 20 mcg/kg/min 11.2 mL /hr injection Change PM TERMITE TREATER HELPER CONTINUOUS PRN, Starting on Yesenia 09/30/12 at 1202, Anesthesia Intra-op Rate/Dose Change 09/30/2012 12:04 PM TERMITE TREATER HELPER 10 mcg/kg/min 5.6 mL/hr New Bag 09/30/2012 12:02 PM TERMITE TREATER HELPER 55 mcg/kg/min 30.7 mL/hr documented in this encounter Care Teams Customer Service Sales Consultant Relationship Specialty Start Date End Date Primary Dipak Kasper, PCP - General 09/21/1204/18 documented as of this encounter
--- OUTSIDE RECORDS SUMMARY | 2022-07-31 14:01 | XMS_ITS | Encounter Summary ---
:1940 Author Organization [facility] Address [address] [place] [address] Care Team Providers Name Role Phone Unavailable Primary Care Provider Unavailable Reason for Visit Reason Onset Date Comments Schedule Surgery 01/30/2011 Encounter Details Date Type Department Care Team Description 01/30/2011 Telephone [facility] Sal Engel, Schedule Surgery [address] [place] [address] 1021 [facility] [phone] [facility] [address] [place], [place] [address] (Wo rk) Social History Tobacco Use Types Packs/Day Years Used Date Smoking Tobacco: Never Assessed Sex Assigned at Date Recorded Not on file documented as of this encounter Miscellaneous Notes Telephone Encounter - Kandy Cain - 02/04/2011 1:02 PM CDT Packet mailed. Kandy Cain CMA Telephone Encounter - Kandy Cain - 01/31/2011 12:49 PM CDT Added to [place] Telephone Encounter - Kandy Cain - 01/31/2011 10:34 AM CDT Surgery scheduled. VM Left with details. Date/Time: 02/06/2011 @ 10:50 am Hospital: [facility] Anesthesia: POP Surgeon: Sal Chaparro D.P.M. Preop:Unknown Consent: ORIF w/ possible bone grafting 2nd metatarsal lt foot Hammertoe correction 2nd toe lt foot Surgeon Procedure Time: 1 hour Anesthesia: POPL Location: [place] Pre-Operative Medications: Clindamycin 600 mg IV pre-op Heparin 5000 Units SQ pre-op Special Instrumentation: Sagittal saw, Synthes Mini Locking Plates, Mini C-arm Electronically signed by Sal Chaparro DPM Advised [...] surgery details for pt? February 06 or [phone] or [phone] Thank you, Kandy Cain CMA documented in this encounter Plan of Treatment Not on filedocumented as of this encounter Visit Diagnoses Not on filedocumented in this encounter
== END 2022-07-31 13:51 | disposition home or self-care (01) ==
LOC: WOUND 13:51
PROVIDERS: PCP Family Medicine; Visit Provider Nurse Practitioner Family
DX: L89.324 Pressure ulcer of left buttock, stage 4 (principal); R77.0 Abnormality of albumin; D50.9 Iron deficiency anemia, unspecified
CPT/HCPCS: 15271; Q4151

== ENCOUNTER 2022-08-14 11:00 | Outpatient (CLI) | payer MEDICARE, BC, SELFPAY ==
--- OUTSIDE RECORDS SUMMARY | 2022-08-14 11:13 | XMS_ITS | Encounter Summary ---
:1940 Author Organization [facility] Address [address] [place] [address] Care Team Providers Name Role Phone Unavailable Primary Care Provider Unavailable Encounter Details Date Type Department Care Team Description 07/23/2022 Orders Only [facility] f Denilson Quinones MD [phone] [place] [address] [place], [place] [phone] (Wo rk) Social History Tobacco Use [...] 07/24/2022 Unless otherwise specified, test(s) performed at: [facility], [address] [place] [address], [place] [address] PERSONNEL TRAINING OFFICER: Raheem Malik M.D., Ph.D For any questions, please call customer service at FREQUENCY:MONTHLY Resulting Agency Comment Specimen source: Plasma Denilson Holly MD LAB BLOOD ORDERABLES Performing Organization Address City/State/ZIP Code Phon e Number [facility]PS [facility] (ABNORMAL) Spectrae Chemistry (07/23/2022) [facility] Method Time Signature BUN 43 (H) [...] 07/24/2022 Unless otherwise specified, test(s) performed at: [facility], [address] [place] [address], [place] [address] PERSONNEL TRAINING OFFICER: Raheem Malik M.D., Ph.D For any [...] 07/24/2022 Unless otherwise specified, test(s) performed at: [facility], [address] [place] [address], [place] [address] PERSONNEL TRAINING OFFICER: Raheem Malik M.D., Ph.D For any [...] for the general public, refer to MMWR [facility] 2004/Vol.54 (No. 16); -, and [...] 07/24/2022 Unless otherwise specified, test(s) performed at: [facility], [address] [place] [address], [place] [address] PERSONNEL TRAINING OFFICER: Raheem Malik M.D., Ph.D For any questions, please call customer service at FREQUENCY:MONTHLY Resulting Agency Comment Specimen source: Plasma Denilson Holly MD LAB BLOOD ORDERABLES Performing Organization Address City/State/ZIP Code Phon e Number [facility] (ABNORMAL) HEMATOLOGY (07/23/2022) [facility] gist Method Time Signature WBC 5.78 4.80 [...] 07/24/2022 Unless otherwise specified, test(s) performed at: [facility], [address] [place] [address] [place] [address] PERSONNEL TRAINING OFFICER: Raheem Malik M.D., Ph.D For any questions, please call customer service at FREQUENCY:MONTHLY Resulting Agency Comment Specimen source: Blood Denilson Holly MD LAB BLOOD ORDERABLES Performing Organization Address City/State/ZIP Code Phon e Number [facility] documented in this encounter Visit Diagnoses Not on filedocumented in this encounter
--- OUTSIDE RECORDS SUMMARY | 2022-08-14 11:13 | XMS_ITS | Encounter Summary ---
:1940 Author Organization [facility] Address [address] [place] [address] Care Team Providers Name Role Phone Unavailable Primary Care Provider Unavailable Encounter Details Date Type Department Care Team Description 06/04/2022 Orders Only [facility] O f Denilson Quinones MD [phone] [place] [address] [place], [place] [phone] (Wo rk) Social History Tobacco Use [...] 06/05/2022 Unless otherwise specified, test(s) performed at: [facility], [address] [place] [address], [place] [address] NURSE TRANSITION: Raheem Malik M.D., Ph.D For any questions, please call customer service at FREQUENCY:OTHER Resulting Agency Comment Specimen source: Serum Denilson Holly MD LAB BLOOD ORDERABLES Performing Organization Address City/[facility] Phon e Number APS SPECTRA [...] 06/05/2022 Unless otherwise specified, test(s) performed at: [facility], [address] [place] [address], [place] [address] NURSE TRANSITION: Raheem Malik M.D., Ph.D For any questions, please call customer service at FREQUENCY:OTHER Resulting Agency Comment Specimen source: Blood Denilson Holly MD LAB BLOOD ORDERABLES Performing Organization Address City/[facility] Phon e Number [facility] documented in this encounter Visit Diagnoses Not on filedocumented in this encounter
--- OUTSIDE RECORDS SUMMARY | 2022-08-14 11:13 | XMS_ITS | Encounter Summary ---
:1940 Author Organization [facility] Address [address] [place] [address] Care Team Providers Name Role Phone Unavailable Primary Care Provider Unavailable Encounter Details Date Type Department Care Team Description 07/02/2022 Orders Only [facility] O f Denilson Quinones MD [phone] [place] [address] [place], [place] [phone] (Wo rk) Social History Tobacco Use [...] this encounter Results (ABNORMAL) Spectrae Chemistry (07/02/2022) [facility] gist Method Time Signature Sodium 140 [...] 07/03/2022 Unless otherwise specified, test(s) performed at: [facility], [address] [place] [address], [place] [address] PROBE OPERATOR: Raheem Malik M.D., Ph.D For any questions, please call customer service at FREQUENCY:OTHER Resulting Agency Comment Specimen source: Serum Denilson Holly MD LAB BLOOD ORDERABLES Performing Organization Address City/[facility] Phon e Number APS SPECTRA [facility] (ABNORMAL) [...] 07/03/2022 Unless otherwise specified, test(s) performed at: [facility], [address] [place] [address], [place] [address] PROBE OPERATOR: Raheem Malik M.D., Ph.D For any questions, please call customer service at FREQUENCY:OTHER Resulting Agency Comment Specimen source: Blood Denilson Holly MD LAB BLOOD ORDERABLES Performing Organization Address City/[facility] Phon e Number [facility] documented in this encounter Visit Diagnoses Not on filedocumented in this encounter
--- OUTSIDE RECORDS SUMMARY | 2022-08-14 11:13 | XMS_ITS | Encounter Summary ---
:1940 Author Organization [facility] Address [address] [place] [address] Care Team Providers Name Role Phone Unavailable Primary Care Provider Unavailable Encounter Details Date Type Department Care Team Description 06/11/2022 Treatment [facility] f Denilson Quinones MD [address] [place] [address] [place], [place] [phone] (Wo rk) Social History Tobacco Use Types Packs/Day Years Used Date Smoking Tobacco: Never Assessed Sex Assigned at Date Recorded Not on file documented as of this encounter Miscellaneous Notes Dialysis Note - Denilson Holly MD - 06/11/2022 3:02 PM CDT Date: Jun 11, 2022 Patient Name: Speedy Hendricks : 1940 Chart #: [id number] Sex: M PATTERN DRAFTER: Denilson Holly MD LOCATION: [place] [phone] SCHEDULE: M-W-F 2nd Shift Chief Complaint: Acute [...] requiring HD. Transferred from [place] rehab to [facility] here, hoping to get home. First Hd here today, dry weight much lower than what they had listed it appears. Med list reviewed from [facility], on midodrine for hypotension with HD. The [...] removed). Went to rehab, [facility] [place] [facility] [place]. [facility] [place]. His daughter Raquel is ICU/REAL ESTATE BROKER ASSOCIATE (ramone currently) and is very involved. Problem [...] and he is considering. WIll send to [facility] as soon as he accepts Will keep [...]
--- OUTSIDE RECORDS SUMMARY | 2022-08-14 11:13 | XMS_ITS | Encounter Summary ---
:1940 Author Organization [facility] Address [address] [place] [address] Care Team Providers Name Role Phone Unavailable Primary Care Provider Unavailable Encounter Details Date Type Department Care Team Description 06/25/2022 Orders Only [facility] O f Denilson Quinones MD [phone] [place] [address] [place], [place] [phone] (Wo rk) Social History Tobacco Use [...] 06/27/2022 Unless otherwise specified, test(s) performed at: [facility], [address] [place] [address], [place] [address] BUSINESS INTELLIGENCE ANALYST: Raheem Malik M.D., Ph.D For any [...] 06/27/2022 Unless otherwise specified, test(s) performed at: [facility], [address] [place] [address] [facility] [facility], [place] [address] BUSINESS INTELLIGENCE ANALYST: Raheem Malik M.D., Ph.D For any [...] 06/27/2022 Unless otherwise specified, test(s) performed at: [facility], [address] [place] [address], [place] [address] BUSINESS INTELLIGENCE ANALYST: Raheem Malik M.D., Ph.D For any questions, please call customer service at FREQUENCY:MONTHLY Resulting Agency Comment Specimen source: Serum Denilson Holly MD LAB BLOOD ORDERABLES Performing Organization Address City/State/ZIP Code Phon e Number [facility]PS S[facility]RA [facility] (ABNORMAL) HEMATOLOGY (06/25/2022) [facility] gist Method Time Signature WBC 4.15 [...] 06/27/2022 Unless otherwise specified, test(s) performed at: [facility], [address] [place] [address], [place] [address] BUSINESS INTELLIGENCE ANALYST: Raheem Malik M.D., Ph.D For any questions, please call customer service at FREQUENCY:MONTHLY Resulting Agency Comment Specimen source: Blood Denilson Holly MD LAB BLOOD ORDERABLES Performing Organization Address City/State/ZIP Code Phon e Number [facility] documented in this encounter Visit Diagnoses Not on filedocumented in this encounter
--- OUTSIDE RECORDS SUMMARY | 2022-08-14 11:13 | XMS_ITS | Encounter Summary ---
:1940 Author Organization [facility] Address [address] [place] [address] Care Team Providers Name Role Phone Unavailable Primary Care Provider Unavailable Encounter Details Date Type Department Care Team Description 07/09/2022 Treatment [facility] O Denilson Chand MD [address] [place] [address] [place], [place] [phone] (Wo rk) Social History Tobacco Use Types Packs/Day Years Used Date Smoking Tobacco: Never Assessed Sex Assigned at Date Recorded Not on file documented as of this encounter Miscellaneous Notes Dialysis Note - Denilson Holly MD - 07/09/2022 12:48 PM CDT Date: Jul 09, 2022 Patient Name: Speedy Hendricks : 1940 Chart #: [id number] Sex: M This patient was personally seen [...] PM ) BP (sit): 131/80 AP(-) / CRTTS: 152/102 Pulse: 89 Chairside data as of [...] 03:00 Actual Treatment Time 03:01 03:00 03:03 PROGRAMS ASSISTANT: Denilson Holly MD LOCATION: [place] [phone] SCHEDULE: M-W- 2nd Shift EDW: kg. DIALYZER: [...] of access: PCAD Access placement scheduled at [facility] in July Anemia Assessment HEMOGLOBIN (G/DL) IN [...] at goal. Intact PTH is below goal. Jig And Fixture Builder Apprentice will adjust binders and vitamin D per [...] Name: Speedy Hendricks : 1940 Chart #: [id number] Sex: M Patient Type: ESRD Modality: Hemodialysis Repairer Pump: Denilson Holly MD Location: [place] [address] Schedule: -W- 2nd Shift Initial Access Date [...]
--- OUTSIDE RECORDS SUMMARY | 2022-08-14 11:13 | XMS_ITS | Clinical Summary ---
:1940 Author Organization [facility] Address [address] [place] [address] Care Team Providers Name Role Phone Unavailable Primary Care Provider Unavailable Encounters Date Type Specialty Care Team Description 08/13/2022 Orders Only NephDenilson Isidro MD 08/06/2022 Orders Only NephDenilson Isidro MD 08/06/2022 Treatment Denilson Holly MD 07/30/2022 Orders Only NephDenilson Isidro MD 07/30/2022 [...] Isidro MD 05/14/2022 Treatment Denilson Holly MD from Last 3 Months Social History Tobacco Use Types Packs/Day Years Used Date Smoking Tobacco: Never Assessed Sex Assigned at Date Recorded Not on file Plan of Treatment Health Maintenance Due Date Last Done Comments Hepatitis B Vaccine (1 of 5 - Risk 1962 07/25/1991, 0 01/31/1991 Dialysis 4-dose series) Influenza Vaccine (#1) 2022 08/16/2021, 08/10/2020, 08/12/2018, Additional history exists Pneumococcal Vaccine: 65+ Years Completed 12/02/2016, 09/18, 05/01/2009 Procedures Procedure Name Priority Date/Time Associated Diagnosis Comme nts HEMATOLOGY Routine 08/13/2022 Results for thi s procedure are i n the results section . CHEMISTRY Routine 08/06/2022 Results for thi s procedure are i n the results section . HEMATOLOGY Routine 08/06/2022 Results for thi s procedure are i n the results section . CHEMISTRY Routine 07/30/2022 Results for thi s procedure are i n the results section . HEMATOLOGY Routine 07/30/2022 Results for thi s [...] from Last 3 Months Results (ABNORMAL) HEMATOLOGY (08/13/2022)Only the most recent of14 resultswithin the time period is included. Analysis Performed At Patho logist Time Signature Hemoglobin 11.8 (L) 14.0 - APS [facility]RA 18.0 g/dL [facility] Hemoglobin x 3 35.4 (L) 42.0 - [facility] 54.0 % [facility] Specimen (Source) Anatomical Collection Method Collection Time Re ceived Time Location / / Volume Laterality 08/13/2022 08/14/2022 3:22 AM CDT Narrative [facility] - 08/14/2022 Unless otherwise specified, test(s) performed at: [facility], [address] [place] [address], [place] [address] NUCLEAR WASTE MANAGEMENT ENGINEER: Raheem Malik M.D., Ph.D For any questions, please call customer service at FREQUENCY:OTHER Resulting Agency Comment Specimen source: Blood Denilson Holly MD LAB BLOOD ORDERABLES Performing Organization Address City/State/ZIP Code Phon e Number APS SPECTRA [facility] (ABNORMAL) Spectrae Chemistry (08/06/2022)Only the most recent of17 results within the time period is included. Patholo gist Method Time Signature BUN 40 (H) 6 - 19 [facility] mg/dL [facility] Creatinine 3.30 (H) 0.60 - [facility] 1.30 mg/dL [facility] BUN/Creatinine 12.1 10.0 - [facility] Ratio 20.0 [facility] Sodium 142 136 - 145 [facility] mEq/L [facility] Potassium 4.0 3.5 - 5.1 [facility] mEq/L [facility] Chloride 102 96 - 108 [facility] mEq/L [facility] Bicarbonate 26 20 - 31 [facility] (CO2) mEq/L [facility] Comment: Please note change in reference range. Specimen (Source) Anatomical Collection Method Collection Time Re ceived Time Location / / Volume Laterality 08/06/2022 08/07/2022 3:48 AM CDT Narrative [facility] - 08/07/2022 Unless otherwise specified, test(s) performed at: [facility], [facility] [place] [address] NUCLEAR WASTE MANAGEMENT ENGINEER: Raheem Malik M.D., Ph.D For any questions, please call customer service at FREQUENCY:OTHER Resulting Agency Comment Specimen source: Serum Denilson Holly MD LAB BLOOD ORDERABLES Performing Organization Address City/[facility] Phon e Number APS SPECTRA [facility] HD [...] 07/24/2022 Unless otherwise specified, test(s) performed at: [facility], [place] [address] NUCLEAR WASTE MANAGEMENT ENGINEER: Raheem Malik M.D., Ph.D For any questions, please call customer service at FREQUENCY:MONTHLY Resulting Agency Comment Specimen source: Plasma Denilson Holly MD LAB BLOOD ORDERABLES Performing Organization Address City/[facility]/ZIP Code Phon e Number APS SPECTRA [facility] POST CHEMISTRY (07/23/2022)Only the most recent of3 resultswithin the time period is included. athologist Signature BUN Post 11 6 - 19 [facility] Dialysis mg/dL [facility] Specimen (Source) Anatomical Collection Method Collection Time Re ceived Time Location / / Volume Laterality 07/23/2022 07/24/2022 10:4 0 AM CDT Narrative [facility]PS [facility] - 07/24/2022 Unless otherwise specified, test(s) performed at: [facility], [address] [place] [address], [place] [address] NUCLEAR WASTE MANAGEMENT ENGINEER: Raheem Malik M.D., Ph.D For any questions, please call customer service at FREQUENCY:MONTHLY Resulting Agency Comment Specimen source: Plasma Denilson Holly MD LAB BLOOD ORDERABLES Performing Organization Address [facility] Phon e Number APS SPECTRA [facility] [...] refer to MMWR Decemb 2004/Vol.54 (No. 16); -, and for healthcare [...] damaris test result was obtained using the D[employer]rin Liaison XL chemilumin escent method. Results obtained [...] 06/14/2022 Unless otherwise specified, test(s) performed at: [facility], [address] [place] [address], [place] [address] NUCLEAR WASTE MANAGEMENT ENGINEER: Raheem Malik M.D., Ph.D For any questions, please call customer service at FREQUENCY:OTHER Resulting Agency Comment Specimen source: Urine Denilson Holly MD LAB URINE ORDERABLES Performing Organization Address City/[facility] Phon e Number [facility] PATIENT INFORMATION (06/13/2022)Only the most recent of6 resultswithin the time period is included. athologist [facility] Patient BSA 1.77 sq. M. [facility]PS S[facility] Comment: Normalized values are calculated using t he patient's actual BSA and normalized to the average BSA of 1.73m2. Specimen (Source) Anatomical Collection Method Collection Time Re ceived Time Location / / Volume Laterality 06/13/2022 06/14/2022 2:50 AM CDT Narrative APS SPECTRA [facility] - 06/14/2022 Unless otherwise specified, test(s) performed at: [facility], [address] [place] [address], [place] [address] NUCLEAR WASTE MANAGEMENT ENGINEER: Raheem Malik M.D., Ph.D For any questions, please call customer service at FREQUENCY:OTHER Resulting Agency Comment Specimen source: PD Fluid Denilson Holly MD LAB BLOOD ORDERABLES Performing Organization Address City/[facility] Phon e Number [facility] GFR (05/28/2022)Only the most recent of5 resultswithin the time period is included. athologist Signature eGFR CKD-EPI CR 30 mL/min [facility] 2020 [facility] Comment: [facility] has implemented the recommended eGFR calculation that [...] 05/29/2022 Unless otherwise specified, test(s) performed at: [facility], [address] [place] [address], [place] [address] NUCLEAR WASTE MANAGEMENT ENGINEER: Raheem Malik M.D., Ph.D For any questions, please call customer service at FREQUENCY:OTHER Resulting Agency Comment Specimen source: Serum Denilson Holly MD LAB [id number] NSOLICITED RESULTS Performing Organization Address City/State/ZIP Code Phon e Number [facility]PS SPECT[facility] from Last 3 Months Insurance Payer Benefit Plan / Subscriber ID Effective Dates Phone Addre ss Type Group [place] [id number] 2016-Present [phone] [address] [address] ([id number]) [place] [address]
--- OUTSIDE RECORDS SUMMARY | 2022-08-14 11:13 | XMS_ITS | Encounter Summary ---
:1940 Author Organization [facility] Address [address] [place] [address] Care Team Providers Name Role Phone Unavailable Primary Care Provider Unavailable Encounter Details Date Type Department Care Team Description 08/13/2022 Orders Only [facility] O f Denilson Quinones MD [phone] [place] [address] [place], [place] [phone] (Wo rk) Social History Tobacco Use Types Packs/Day Years Used Date Smoking Tobacco: Never Assessed Sex Assigned at Date Recorded Not on file documented as of this encounter Plan of Treatment Not on filedocumented as of this encounter Procedures Procedure Name Priority Date/Time Associated Diagnosis Comme nts HEMATOLOGY Routine 08/13/2022 Results for thi s procedure are in the resu lts section. documented in this encounter Results (ABNORMAL) HEMATOLOGY (08/13/2022) Analysis Performed At Patho logist Time Signature Hemoglobin 11.8 (L) 14.0 - [facility] 18.0 g/dL [facility] Hemoglobin x 3 35.4 (L) 42.0 - [facility] 54.0 % [facility] Specimen (Source) Anatomical Collection Method Collection Time Re ceived Time Location / / Volume Laterality 08/13/2022 08/14/2022 3:22 AM CDT Narrative APS SPECTRA [facility] - 08/14/2022 Unless otherwise specified, test(s) performed at: [facility], [address] [place] [address], [place] [address] ASSISTANT TERMINAL MANAGER: Raheem Malik M.D., Ph.D For any questions, please call customer service at FREQUENCY:OTHER Resulting Agency Comment Specimen source: Blood Denilson Holly MD LAB BLOOD ORDERABLES Performing Organization Address City/State/ZIP Code Phon e Number [facility] documented in this encounter Visit Diagnoses Not on filedocumented in this encounter
--- OUTSIDE RECORDS SUMMARY | 2022-08-14 11:13 | XMS_ITS | Encounter Summary ---
:1940 Author Organization [facility] Address [address] [place] [address] Care Team Providers Name Role Phone Unavailable Primary Care Provider Unavailable Encounter Details Date Type Department Care Team Description 07/30/2022 Orders Only [facility] O f Denilson Quinones MD [phone] [place] [address] [place], [place] [phone] (Wo rk) Social History Tobacco Use [...] in the resu lts section. CHEMISTRY Routine 07/30/2022 Results for thi s procedure are in the resu lts section. documented in this encounter Results (ABNORMAL) Spectrae Chemistry (07/30/2022) [facility] gist Method Time Signature BUN 35 (H) 6 - 19 APS SPECTRA mg/dL [facility] Creatinine 3.28 (H) 0.60 - APS SPECTRA 1.30 mg/dL [facility] BUN/Creatinine 10.7 10.0 - APS SPECTRA Ratio 20.0 [facility] Sodium 142 136 - 145 APS [facility]RA mEq/L [facility] Potassium 4.3 3.5 - 5.1 APS SPECTRA mEq/L [facility] Chloride 102 96 - 108 APS SPECTRA mEq/L [facility] Bicarbonate 28 20 - 31 APS SPECTRA (CO2) mEq/L [facility] Comment: Please note change in reference range. Specimen (Source) Anatomical Collection Method Collection Time Re ceived Time Location / / Volume Laterality 07/30/2022 07/31/2022 7:59 AM CDT Narrative APS SPECTRA [facility] - 07/31/2022 Unless otherwise specified, test(s) performed at: [facility], [address] [place] [address], [place] [address] ENVIRONMENTAL TECHNICAL OFFICER: Raheem Malik M.D., Ph.D For any questions, please call customer service at FREQUENCY:OTHER Resulting Agency Comment Specimen source: Serum Denilson Holly MD LAB BLOOD ORDERABLES Performing Organization Address City/[facility] Phon e Number APS SPECTRA [facility] (ABNORMAL) HEMATOLOGY (07/30/2022) Analysis Performed At Patho [...] 07/31/2022 Unless otherwise specified, test(s) performed at: [facility], [address] [place] [address], [place] [address] ENVIRONMENTAL TECHNICAL OFFICER: Raheem Malik M.D., Ph.D For any questions, please call customer service at FREQUENCY:OTHER Resulting Agency Comment Specimen source: Blood Denilson Holly MD LAB BLOOD ORDERABLES Performing Organization Address City/[facility] Phon e Number APS SPECTRA [facility] documented in this encounter Visit Diagnoses Not on filedocumented in this encounter
--- OUTSIDE RECORDS SUMMARY | 2022-08-14 11:13 | XMS_ITS | Encounter Summary ---
:1940 Author Organization [facility] Address [address] [place] [address] Care Team Providers Name Role Phone Unavailable Primary Care Provider Unavailable Encounter Details Date Type Department Care Team Description 07/30/2022 Treatment [facility] Denilson Paige MD [address] [place] [address] [place], [place] [phone] (Wo rk) Social History Tobacco Use Types Packs/Day Years Used Date Smoking Tobacco: Never Assessed Sex Assigned at Date Recorded Not on file documented as of this encounter Miscellaneous Notes Dialysis Note - Denilson Holly MD - 07/30/2022 2:05 PM CDT Date: Jul 30, 2022 Patient Name: Speedy Hendricks : 1940 Chart #: [id number] Sex: M This patient was personally seen [...] PM ) BP (sit): 118/70 AP(-) / LEGAL BILLING CLERK: 152/99 Pulse: 75 Chairside data as of [...] mcg IVP Every 4 weeks 07/07/2022 07/06/2023 CLINICAL ADVISOR: Denilson Holly MD LOCATION: [place] [phone] SCHEDULE: -- 2nd Shift EDW: kg. DIALYZER: [...] of access: PCAD Access placement scheduled at [facility] in July Anemia Assessment HEMOGLOBIN (G/DL) IN [...] at goal. Intact PTH is at goal. [facility] will adjust binders and vitamin D per [...]
--- OUTSIDE RECORDS SUMMARY | 2022-08-14 11:13 | XMS_ITS | Encounter Summary ---
:1940 Author Organization [facility] Address [address] [place] [address] Care Team Providers Name Role Phone Unavailable Primary Care Provider Unavailable Encounter Details Date Type Department Care Team Description 08/06/2022 Treatment [facility] O Denilson Chand MD [address] [place] [address] [place], [place] [address] [phone] (Wo rk) Social History Tobacco Use Types Packs/Day Years Used Date Smoking Tobacco: Never Assessed Sex Assigned at Date Recorded Not on file documented as of this encounter Miscellaneous Notes Dialysis Note - Denilson Holly MD - 08/06/2022 1:09 PM CDT Date: Aug 06, 2022 Patient Name: Speedy Hendricks : 1940 Chart #: [id number] Sex: M This patient was personally seen for a basic visit as part of routine weekly dialysis care. A reviewof the dialysis treatment, blood pressure, estimated dry weight and recent lab values was made. These were discussed with the patient and staff as necessary. Treatment Data for 08/06/2022 started at:12:00 PM Dialyzer: 180NRe Optiflux Na: 138 mEq/L Bicarb: 36 mEq/L Dialysate: 3.0 K, 2.25 Ca, 1.0 Mg, 100 Dextrose (G3231) Dialysate/Machine Temp (prescribed): 37 C Dialysate/Machine Temp (actual): 35.8 C BFR (prescribed): 350 BFR (actual): 350 Prescribed time: 03:00 EDW: 71.5 kg Access Type: Active (In Use):CVCatheter-Tunneled/Chest Pre Dialysis Vitals (for 08/06/2022 11:49 AM ) Pre BP (sit): 156/83 Pre Wt: 73.2 kg Temp: 97.2 F Post Dialysis Vitals (for 08/04/2022 3:27 PM ) Post BP (sit): 107/67 Post Wt: 72.8 kg Current Dialysis Vitals (for 08/06/2022 1:06 PM ) BP (sit): 90/50 AP(-) / BEAM WARPER: 158/104 Pulse: 77 Chairside data as of 08/06/2022 1:06 PM Last 3 Treatments 08/04/2022 08/01/2022 07/30/2022 EDW (kg) 71.5 71.5 71.5 Weight Pre (kg) 74.3 72.9 72.5 Weight Post (kg) 72.8 71.8 71.5 Dialytic Weight Loss (kg) -1.5 -1.1 -1 EDW Deviation (kg) 1.3 0.3 0.0 BP Sit Pre 109/63 153/79 131/65 BP Sit Post 107/67 158/93 147/87 UF Rate (mL/kg/hr) 7 5 5 Prescribed BFR 350 350 350 Average Delivered BFR 350 360 360 Prescribed Treatment Time 03:00 03:00 03:00 Actual Treatment Time 03:02 03:01 03:00 Treatment Medication Orders Medication Sig Start Date End Date Heparin Sodium (Porcine) 1,000 Units/mL Catheter Lock Arterial 1600 units Arterial Red Port Every Treatment 04/16/2022 04/15/2023 Heparin Sodium (Porcine) 1,000 Units/mL Catheter Lock Venous 1600 units Venous Blue Port Every Treatment 04/16/2022 04/15/2023 Iron Sucrose (Venofer) 100 mg IVP Every Treatment 07/16/2022 08/06/2022 Mircera 30 mcg IVP Every 4 weeks 07/07/2022 07/06/2023 BOTTLE LINE WORKER: Denilson Holly MD LOCATION: [place] [phone] SCHEDULE: -- 2nd Shift ACCESS: EDW: kg. DIALYZER: HD DURATION: NEEDLE SIZE: ANTICOAG: BATH: QB: ml/min QD: ml/min Subjective No new complaints. 08/06/22: He has no new symptoms, no symptoms on dialysis. BP controlled. Vascular visit postponed, was supposed to be yesterday, he says to ask his daughter as he is not sure why. 07/30/22: He is doing really a lot [...] convince him to do this Advanced Practitioner Subjective: Review of Systems None reported. Problem List Description ICD9 Code ICD10 Code End stage renal disease 585.6 N18.6 Dependence on renal dialysis V45.11 Z99.2 Exam Respiratory - Clear to auscultation bilaterally. Cardiovascular Regular rate. Edema - No leg edema. Access - PCAD c/d/i Medication List Medication Sig Start Date apixaban [...] Medications reviewed and no changes were made. BUN mg/dL 35 (07/30/22) 43 (07/23/22) 30 (07/16/22) 27 (07/09/22) 28 (07/02/22) UREA NITROGEN (MG/DL) IN SER/PLAS - POST DIALYSIS mg/dL 11 (07/23/22) 7 (06/25/22) 13 (05/21/22) 11 (04/23/22) 18 (04/16/22) URR % 74 (07/23/22) 71 (06/25/22) 76 (05/21/22) 74 (04/23/22) 69 (04/16/22) spKt/V Gotch 1.56 (07/23/22) 1.39 (06/25/22) 1.78 (05/21/22) 1.8 (04/23/22) eKdrt/V 1.42 (07/23/22) 1.27 (06/25/22) 1.45 (05/21/22) 1.47 (04/23/22) spKt/V (Daugirdas II) 1.5200 (07/23/22) 1.3600 (06/25/22) 1.6600 (05/21/22) 1.6300 (04/23/22) 1.3700 (04/16/22) HEMOGLOBIN (G/DL) IN BLOOD g/dL 11.8 (07/30/22) 11.9 (07/23/22) 11.2 (07/16/22) 11.3 (07/09/22) 11.6 (07/02/22) PLATELETS 1000/mcL 162 (07/23/22) 198 (06/25/22) 244 (05/21/22) 203 (04/23/22) 229 (04/16/22) IRON SATURATION % 31 (04/16/22) FERRITIN ng/mL 864 (07/23/22) 704 (04/23/22) 989 (04/16/22) ALBUMIN (G/DL) g/dL 4.1 (07/23/22) 3.9 (06/25/22) 3.7 (05/21/22) Sodium mEq/L 142 (07/30/22) 141 (07/23/22) 140 (07/16/22) POTASSIUM (MMOL/L) IN SER/PLAS mEq/L 4.3 (07/30/22) 4.4 (07/23/22) 4.2 (07/16/22) BICARBONATE (CO2) mEq/L 28 (07/30/22) 24 (07/23/22) 30 (07/16/22) BUN/CREATININE (MASS RATIO) IN SER/PLAS 10.7 (07/30/22) 13.6 (07/23/22) 9.8 (07/16/22) GLUCOSE (MG/DL) IN SER/PLAS mg/dL 85 (05/19/22) 95 (05/02/22) VOLUME OF URINE mL 800 (06/13/22) 200 (05/23/22) 500 (05/19/22) CALCIUM mg/dL 9.7 (07/23/22) 8.9 (06/25/22) 9.1 (05/21/22) Calcium Phos Product 47 (07/23/22) 45 (06/25/22) 34 (05/21/22) CALCIUM (MG/DL) CORRECTED FOR ALBUMIN IN SER/PLAS mg/dL 9.6 (07/23/22) 9.0 (06/25/22) 9.3 (05/21/22) PHOSPHATE (MG/DL) IN SER/PLAS mg/dL 4.8 (07/23/22) 5.0 (06/25/22) 3.7 (05/21/22) IPTH pg/mL 165 (07/23/22) 121 (04/23/22) 108 (04/16/22) Vascular Access Assessment: Type of access: PCAD Access placement scheduled at [facility] in August 2022 Impression and Plan Stable dialysis, no changes to prescription Access appt re-scheduled for August Denilson Holly MD [ Signed And locked electronically On 08/06/2022 at 01:10:33 PM ] Transcribed: Denilson Holly ( 08/06/2022 ) documented in this encounter Plan of Treatment Not on filedocumented as of this encounter Visit Diagnoses Not on filedocumented in this encounter
--- OUTSIDE RECORDS SUMMARY | 2022-08-14 11:13 | XMS_ITS | Encounter Summary ---
:1940 Author Organization [facility] Address [address] [place] [address] Care Team Providers Name Role Phone Unavailable Primary Care Provider Unavailable Encounter Details Date Type Department Care Team Description 07/09/2022 Orders Only [facility] O f Denilson Quinones MD [phone] [place] [address] [place], [place] [phone] (Wo rk) Social History Tobacco Use [...] 07/11/2022 Unless otherwise specified, test(s) performed at: [email or web address], [address] [place] [address], [place] [address] PRESS BOX CUSTODIAN: Raheem Malik M.D., Ph.D For any questions, [...] 07/10/2022 Unless otherwise specified, test(s) performed at: [email or web address], [address] [place], [place] [address]ann [place] [address] PRESS BOX CUSTODIAN: Raheem Malik M.D., Ph.D For any questions, please call customer service at FREQUENCY:OTHER Resulting Agency Comment Specimen source: Serum Denilson Holly MD LAB BLOOD ORDERABLES Performing Organization Address City/[facility] Phon e Number APS SPECTRA [facility] documented in this encounter Visit Diagnoses Not on filedocumented in this encounter
--- OUTSIDE RECORDS SUMMARY | 2022-08-14 11:13 | XMS_ITS | Encounter Summary ---
:1940 Author Organization [facility] Address [address] [place] [address] Care Team Providers Name Role Phone Unavailable Primary Care Provider Unavailable Encounter Details Date Type Department Care Team Description 08/06/2022 Orders Only [facility] O f Denilson Quinones MD [phone] [place] [address] [place], [place] [phone] (Wo rk) Social History Tobacco Use Types Packs/Day Years Used Date Smoking Tobacco: Never Assessed Sex Assigned at Date Recorded Not on file documented as of this encounter Plan of Treatment Not on filedocumented as of this encounter Procedures Procedure Name Priority Date/Time Associated Diagnosis Comme nts HEMATOLOGY Routine 08/06/2022 Results for thi s procedure are in the resu lts section. CHEMISTRY Routine 08/06/2022 Results for thi s procedure are in the resu lts section. documented in this encounter Results (ABNORMAL) Spectrae Chemistry (08/06/2022) [facility] gist Method Time Signature BUN 40 (H) [...] 08/07/2022 Unless otherwise specified, test(s) performed at: [facility], [address] [place] [address], [place] [address] DIRECTOR OF GUIDANCE IN [employer]CHOOL[employer]: Raheem Malik M.D., Ph.D For any questions, please call customer service at FREQUENCY:OTHER Resulting Agency Comment Specimen source: Serum Denilson Holly MD LAB BLOOD ORDERABLES Performing Organization Address City/[facility] Phon e Number APS SPECTRA [facility] (ABNORMAL) HEMATOLOGY (08/06/2022) Analysis Performed At Patho logist Time Signature Hemoglobin 11.8 (L) 14.0 - APS SPECTRA 18.0 g/dL [facility] Hemoglobin x 3 35.4 (L) 42.0 - APS SPECTRA 54.0 % [facility] Specimen (Source) Anatomical Collection Method Collection Time Re ceived Time Location / / Volume Laterality 08/06/2022 08/07/2022 3:44 AM CDT Narrative APS SPECTRA [facility] - 08/07/2022 Unless otherwise specified, test(s) performed at: [facility], [address] [place] [address], [place] [address] DIRECTOR OF GUIDANCE IN [employer]: Raheem Malik M.D., Ph.D For any questions, please call customer service at FREQUENCY:OTHER Resulting Agency Comment Specimen source: Blood Denilson Holly MD LAB BLOOD ORDERABLES Performing Organization Address City/[facility] Phon e Number APS SPECTRA [facility] documented in this encounter Visit Diagnoses Not on filedocumented in this encounter
--- OUTSIDE RECORDS SUMMARY | 2022-08-14 11:13 | XMS_ITS | Encounter Summary ---
:1940 Author Organization [facility] Address [address] [place] [address] Care Team Providers Name Role Phone Unavailable Primary Care Provider Unavailable Encounter Details Date Type Department Care Team Description 06/18/2022 Orders Only [facility] O f Denilson Quinones MD [phone] [place] [address] [place], [place] [phone] (Wo rk) Social History Tobacco Use [...] 06/19/2022 Unless otherwise specified, test(s) performed at: [facility], [address] [place] [address], [place] [address] CUSTOMER RESPONSE REPRESENTATIVE: Raheem Malik M.D., Ph.D For any questions, [...] 06/19/2022 Unless otherwise specified, test(s) performed at: [facility], [address] [place], [place] [address]ann [facility] [place] [address] CUSTOMER RESPONSE REPRESENTATIVE: Raheem Malik M.D., Ph.D For any questions, please call customer service at FREQUENCY:OTHER Resulting Agency Comment Specimen source: Serum Denilson Holly MD LAB BLOOD ORDERABLES Performing Organization Address City/State/[facility] Code Phon e Number APS SPECTRA [facility] documented in this encounter Visit Diagnoses Not on filedocumented in this encounter
--- OUTSIDE RECORDS SUMMARY | 2022-08-14 11:13 | XMS_ITS ---
:[address] [facility], [place] DOCUMENT DISCLAIMER The information in the [facility] Continuity of Care Document represents a [...] if ever consumed tobacco - Caregiver Characteristics No Information Available Characteristics of Home environment No Information Available MEDICATIONS Prescribed Medications for Dialysis Treatments Medication [...] Sucrose 1X Week 50 mg Intravenous - July Active (Venofer) push 2021 Iron Sucrose 1X Week 50 mg Intravenous - May 26May Discontinued (Venofer) push 2021 Iron Sucrose Every 100 mg Intravenous - June Discontinued (Venofer) Treatment push 2021 Home Medications Medication Instructions Dosage [...] Sign Value Date / Time Blood Pressure-sitting 126/77 mmHg August 13, 2022 11:45 AM Blood Pressure-standing 161/78 mmHg August 13, 2022 11:45 AM Heart Rate 84 beats per minute August 13, 2022 11: 45 AM Respiratory Rate 16 breaths per minute August 13, 2022 1 1:45 AM Temperature 97.0 deg. F August 13, 2022 11: 45 AM Weight Vital Sign Value Date / Time Estimated Dry Weight 71.5 kg July 02, 2022 11:59 PM Pre-Dialysis 72.80 kg August 13, 2022 11: 45 AM Post-Dialysis 71.50 kg August 13, 2022 11: 45 AM Other Other Value Date / Time Height 177.8 cm July 25, 2022 12: 00 AM [facility] LAB RESULTS Hematology Result Type Result Value Relevant Interpretation Date Reference Range HGB 11.2 g/dL Males: 14.0 - Low July 16, 18.0 g/dL 2021 Females: 12.0 - 16.0 g/dL Hemoglobin x 3 33.6 % Male: 14.0 - 18.0 Low , g/dL; Female: 2021 12.0-16.0 g/dL YARIEL 3.4 % 0.0-4.0% - July 23 2 Basophils 0.2 % 0.0-1.5% - July 23 2 Eosinophil 2.1 % 0.0-7.0% - July 23 2 Monocytes 7.8 % 3.0-10.0% - July 23 2 Lymphocytes 17.3 % 19.0-48.0% Low July 23 Neutrophils 69.3 % 40.0-75.0% - July 23 RDW 14.7 % No Reference High July 23 range provided MCHC 32.4 g/dL 30 - 36 g/dL - July 23 MCH 31.7 pg 27 - 31 pg/cell High July 23, 2022 Ferritin 864 ng/mL Males: 22 - 322 High July 23, 2022 ng/mL; Females: 10 - 291 ng/mL Iron 93 mcg/dL Females: 30-160 - July 23, 2022 mcg/dL Males: 45-160 mcg/dL UIBC (Calc) 155 mcg/dL 155-355 mcg/dL - July 23 TIBC 248 mcg/dL 185-515 mcg/dL - July 23 Transferrin Sat. 38 % 20-55% - July 23, 2022 (Calc) Platelets 162 1000/mcL 699-865 2395/mcL - July 23, 2022 HCT 36.8 % Males: 42 - 52% Low July 23, 2022 Females: 37 - 47% Hemoglobin x 3 35.7 % Male: 14.0 - 18.0 Low July 23, 2022 g/dL; Female: 12.0-16.0 g/dL HGB 11.9 g/dL Males: 14.0 - Low July 23 18.0 g/dL Females: 12.0 - 16.0 g/dL RBC 3.76 mill/mcL Males: 4.70 - July 23 6.10 mill/mcL Females: 4.20 - 5.40 mill/mcL WBC (No Diff) 5.78 1000/mcL 4.8-10.8 - July 23 thous/mcL HGB 11.8 g/dL Males: 14.0 - Low July 30 18.0 g/dL Females: 12.0 - 16.0 g/dL Hemoglobin x 3 35.4 % Male: 14.0 - 18.0 Low July 30, 2022 g/dL; Female: 12.0-16.0 g/dL Hemoglobin x 3 35.4 % Male: 14.0 - 18.0 Low August 06, 2022 g/dL; Female: 12.0-16.0 g/dL HGB 11.8 g/dL Males: 14.0 - Low August 06 18.0 g/dL Females: 12.0 - 16.0 g/dL HGB 11.8 g/dL Males: 14.0 - Low August 13 18.0 g/dL Females: 12.0 - 16.0 g/dL Hemoglobin x 3 35.4 % Male: 14.0 - 18.0 Low August 13, 2022 g/dL; Female: 12.0-16.0 g/dL Metabolic/Renal Result Type Result Value Relevant Reference Interpretation Date Range BUN/Creat Ratio 9.8 - Low June Creatinine, Serum 3.05 mg/dL 0.6-1.3 mg/dL High July 16, 2022 BUN 30 mg/dL 6-19 mg/dl High July 16, Bicarbonate 30 mEq/L 22-29 mEq/L - July 16, Chloride 100 mEq/L 96-108 mEq/L - July 16, Potassium 4.2 mEq/L 3.5-5.1 mEq/L - July 16, 2022 Sodium 140 mEq/L 136-145 mEq/L - July 16, 2022 URR, Calc 74 % 65 - 80% - July 23 2 BUN, Post 11 mg/dL 6-19 mg/dL - July 23 2 Bicarbonate 24 mEq/L 22-29 mEq/L - July 23 2 Potassium 4.4 mEq/L 3.5-5.1 mEq/L - July 23 Chloride 102 mEq/L 96-108 mEq/L - July 23 2 BUN 43 mg/dL 6-19 mg/dl High July 23 2 Creatinine, Serum 3.16 mg/dL 0.6-1.3 mg/dL High July BUN/Creat Ratio 13.6 - - July 23, 2022 Sodium 141 mEq/L 136-145 mEq/L - July 23 Bicarbonate 28 mEq/L 22-29 mEq/L - July 30 Sodium 142 mEq/L 136-145 mEq/L - July 30 Potassium 4.3 mEq/L 3.5-5.1 mEq/L - July 30 Creatinine, Serum 3.28 mg/dL 0.6-1.3 mg/dL High July 192021 BUN/Creat Ratio 10.7 08-07 - July 30, 2022 Chloride 102 mEq/L 96-108 mEq/L - July 30 2 BUN 35 mg/dL 6-19 mg/dl High July 30 2 Bicarbonate 26 mEq/L 22-29 mEq/L - August 06 2 Chloride 102 mEq/L 96-108 mEq/L - August 06 2 Potassium 4.0 mEq/L 3.5-5.1 mEq/L - August 06 Sodium 142 mEq/L 136-145 mEq/L - August 06 BUN/Creat Ratio 12.1 08-07 - August 06, 2022 Creatinine, Serum 3.30 mg/dL 0.6-1.3 mg/dL High July 192021 BUN 40 mg/dL 6-19 mg/dl High August 06 2 HD Adequacy Result Type Result Value Relevant Reference Interpretation Date Range eKt/V 1.28 No Reference range Normal July ([place]) provided spKt/V (Daugirdas 1.52 No Reference range [...] Product 47 < 55 - July 23 022 Alkaline Phosphatase 82 U/L Males: 40-129 U/L, [...] Jugular IMMUNIZATIONS Vaccine Date Dose Route Status [id number], series June 18, 2022 40.0 mcg Intramuscul ar Completed 3 of 4 HEPLISAV-B April 25, 2022 20.0 mcg Intramuscular Completed TRANSPLANT WAITLIST STATUS No Information on Transplant Waitlist Status DIALYSIS TREATMENTS Conventional Hemodialysis Date Pre-Treatment Post-Treatment Duration BFR Dialysate Dialyzer Dialysis Meds Vitals Vitals (hr) (mL/min) Access Admin July Weight 73.80 Weight 72.30 02:51:00 410 3.0 K, 180nre Hemodia lysis-CV Catheter-Tunneled, Chest, Right Jugular Heparin Sodium (Porcine) 1,000 Units/mL Catheter Lock Arterial; 1600units,Arterial Red Port 2021 kg kg 2.25 Ca, Optiflux Hepar in Sodium (Porcine) 1,000 Units/mL Catheter Lock Venous; 1600units,Venous Blue Port 1.0 Mg, 100 Dextrose (G3231) Blood Pressure-sitting 127/69 mmHg Blood Pressure-sitting 15 3/92 mmHg Blood Pressure-standing 143/78 mmHg Blood Pressure-standing 134/81 mmHg Heart Rate 94 beats per Heart Rate 81 beats per minute minute Respiratory Rate 16 breaths per Respiratory Rate 16 breaths per minute minute Temperature 97.0 deg. F Temperature 97.2 deg. F July Weight 73.10 Weight 71.80 02:55:00 360 3.0 K, 180nre Hemodia lysis-CV Catheter-Tunneled, Chest, Right Jugular Heparin Sodium (Porcine) 1,000 Units/mL Catheter Lock Arterial; 1600units,Arterial Red Port 24, 2021 kg kg 2.25 Ca, Optiflux Hepar in Sodium (Porcine) 1,000 Units/mL Catheter Lock Venous; 1600units,Venous Blue Port 1.0 Mg, Iron Sucrose (Venofer); 50mg,Intravenous - push 100 Dextrose (G3231) Blood Pressure-sitting 145/78 mmHg Blood Pressure-sitting 13 7/74 mmHg Blood Pressure-standing 140/71 mmHg Blood Pressure-standing 118/68 mmHg Heart Rate 94 beats per Heart Rate 85 beats per minute minute Respiratory Rate 16 breaths per Respiratory Rate 16 breaths per minute minute Temperature 96.6 deg. F Temperature 97.0 deg. F July Weight 72.80 Weight 71.50 03:00:00 370 3.0 K, 180nre Hemodia lysis-CV Catheter-Tunneled, Chest, Right Jugular Heparin Sodium (Porcine) 1,000 Units/mL Catheter Lock Arterial; 1600units,Arterial Red Port 2021 kg kg 2.25 Ca, Optiflux Hepar in Sodium (Porcine) 1,000 Units/mL Catheter Lock Venous; 1600units,Venous Blue Port 1.0 Mg, 100 Dextrose (G3231) Blood Pressure-sitting 98/53 mmHg Blood Pressure-sitting 12 6/77 mmHg Blood Pressure-standing 110/59 mmHg Blood Pressure-standing 161/78 mmHg Heart Rate 88 beats per Heart Rate 84 beats per minute minute Respiratory Rate 16 breaths per Respiratory Rate 16 breaths per minute minute Temperature 97.3 deg. F Temperature 97.0 deg. F
--- OUTSIDE RECORDS SUMMARY | 2022-08-14 11:13 | XMS_ITS | Clinical Summary ---
:1940 Author Organization [employer] [facility] [place] [address] Care Team Providers Name Role Phone Marija Ramirez MD Primary Care Provider [phone] [facility], [place] Unavailable [phone] Allergies Active Allergy Reactions Severity Noted [...] (HC). 04/2017. Hospitalized for th is at [facility] 05/15/2017 Overview: Thought to be secondary to [...] 10/03/2009 11/22/2013 Routine general medical examination at [facility] ed 009 11/22/2013 facility Overview: Discussed colonoscopy - he'll consider Hyperglycemia 11/27/2008 11/22/2013 Encounters Date Type Specialty Care Team Description 08/11/2022 Telephone Marija Ramirez Medication Management MD Thuy 08/04/2022 Telephone Tone Quinn MD [facility] 06/24/2022 Office Visit Marija Ramirez Medicare AN NUAL MD Thuy (subsequent) Vi sit; Follow Up; Medication Management 06/24/2022 Telephone Marija Ramirez Follow Up MD Thuy 06/24/2022 Travel 06/19/2022 Home Care Visit Jeanette Hunt, JOSE SN - NOT TAKEN UNDER HOME CARE - HOME VIS IT 06/17/2022 Telephone Marija Ramirez Referral MD Thuy 05/30/2022 Orders Only Scanner <No scans attac hed> from Last 3 Months Immunizations Name Administration [...] Encounters Date Type Specialty Care Team Description 09/01/2022 [place] [address] [place] [address] (Wo rk) Health Maintenance Due Date Last [...] 06/24/2022 Tdap Completed 06/27/2009 (Completed outside of [facility]) Pneumococcal series for age 65+ Completed 12/02/2016, 11/19, 10/03/2009, Additional history exists Goals Goal Patient Goal Associated Recent Patient-Stated? Author Type Problems Progress BLOOD PRESSURE Blood Pressure No Yessenia barrera, - MAINTAINS BP Jami Matute less than 140/90 Medical Devices Implanted Type Area Furniture Shampooer Device Shelf Model / Identifier Expiration Serial / Date Lot Screw Canclls 4.0x15mm [id number] - [id number] Spine SOFAMOR DANEK [id number] / Implanted: Qty: 3 on 02/18/2006 at [facility] Implan ts / Plate 42.5mm Zephir - [id number] SOFAMOR DANEK [id number] / Implanted: Qty: 1 on 02/18/2006 at [facility] / Procedures Procedure Name Priority Date/Time [...] that is no t available. Scanner OTHER from Last 3 Months Insurance Payer Benefit Plan / Subscriber ID Effective Dates Phone Addre ss Type Group MEDICARE PART MEDIC[place] PART [id number] [place] B - [place] USE B HB ONLY nt [address] [place] [address] MEDICARE PART MEDICARE PART [id number] 2007[place]: [place] A - [place] USE A HB ONLY nt [address] [place] [address] MEDICARE PPS HC MEDICARE [id number] 2007-Prese PO GERI X 2019 PPS nt [address] [place] [address] BLUE CROSS MR BLUE CROSS [id number] 2016-Presen [address] [address] [place], [place] MR [place] [id number] BLUE CROSS BLUE CROSS [id number] 2016-Presen [address] [address] [place] [id number] Speedy Hendricks Personal/Family Self 1940 [address] [facility] (Home) TRAIL [phone] [place], [place] (Work) [address] Advance Directives Latest Code Status on File Code Status Date Activated Date Inactivated Comments Full Code 04/30/2022 12:01 PM 05/01/2022 2:22 AM Code Status Discussion: Reviewed Preferences Full Code 02/18/2006 7:54 PM 02/20/2006 1:40 PM Full Code 02/18/2006 4:12 PM 02/18/2006 7:54 PM Full Code 02/18/2006 9:49 AM 02/18/2006 4:12 PM Care Teams Director Hair Relationship Specialty Start Date End Date Marija Ramirez MD PCP - General Family Practice 05/13/18 [address] [place] [address] [facility] 06/17/[address] [address]
--- OUTSIDE RECORDS SUMMARY | 2022-08-14 11:13 | XMS_ITS | Encounter Summary ---
:1940 Author Organization [facility] Address [address] [place] [address] Care Team Providers Name Role Phone Unavailable Primary Care Provider Unavailable Encounter Details Date Type Department Care Team Description 05/28/2022 Orders Only [facility] O f Denilson Quinones MD [phone] [place] [address] [place], [place] [phone] (Wo rk) Social History Tobacco Use [...] MD LAB BLOOD ORDERABLES Performing Organization Address City/[facility] Code Phon e Number APS SPECTRA [facility] GFR (05/28/2022) P athologist Signature eGFR CKD-EPI CR 30 mL/min APS SPECTRA 2020 [facility] Comment: [facility] has implemented the recommended eGFR calculation that [...] 05/29/2022 Unless otherwise specified, test(s) performed at: [facility], [address] [place] [address], [place] [address] VIRTUAL CUSTOMER ASSISTANT: Raheem Malik M.D., Ph.D For any questions, please call customer service at FREQUENCY:OTHER Resulting Agency Comment Specimen source: Serum Denilson Holly MD LAB [id number] NSOLICITED RESULTS Performing Organization Address City/[facility] Code Phon e Number APS SPECTRA [...] 05/29/2022 Unless otherwise specified, test(s) performed at: [facility], [address] [place] [address], [place] [address] VIRTUAL CUSTOMER ASSISTANT: Raheem Malik M.D., Ph.D For any questions, please call customer service at FREQUENCY:OTHER Resulting Agency Comment Specimen source: Blood Denilson Holly MD LAB BLOOD ORDERABLES Performing Organization Address City/State/ZIP Code Phon e Number APS SPECTRA [facility] documented in this encounter Visit Diagnoses Not on filedocumented in this encounter
--- OUTSIDE RECORDS SUMMARY | 2022-08-14 11:13 | XMS_ITS | Encounter Summary ---
:1940 Author Organization [facility] Address [address] [place] [address] Care Team Providers Name Role Phone Unavailable Primary Care Provider Unavailable Encounter Details Date Type Department Care Team Description 07/16/2022 Orders Only [facility] O f Denilson Quinones MD [phone] [place] [address] [place], [place] [phone] (Wo rk) Social History Tobacco Use [...] 07/17/2022 Unless otherwise specified, test(s) performed at: [facility], [address] [place] [address], [place] [address] DIVERSIFIED CROPS FARMER: Raheem Malik M.D., Ph.D For any questions, please call customer service at FREQUENCY:OTHER Resulting Agency Comment Specimen source: Blood Denilson Holly MD LAB BLOOD ORDERABLES Performing Organization Address City/[facility] Code Phon e Number APS [...] 07/17/2022 Unless otherwise specified, test(s) performed at: [facility], [address] [place], [place] [address]ann [place] [address] DIVERSIFIED CROPS FARMER: Raheem Malik M.D., Ph.D For any questions, please call customer service at FREQUENCY:OTHER Resulting Agency Comment Specimen source: Serum Denilson Holly MD LAB BLOOD ORDERABLES Performing Organization Address City/[facility] Phon e Number APS SPECTRA [facility] documented in this encounter Visit Diagnoses Not on filedocumented in this encounter
--- OUTSIDE RECORDS SUMMARY | 2022-08-14 11:13 | XMS_ITS | Encounter Summary ---
:1940 Author Organization [facility] Address [address] [place] [address] Care Team Providers Name Role Phone Unavailable Primary Care Provider Unavailable Encounter Details Date Type Department Care Team Description 07/02/2022 Treatment [facility] O f Denilson Quinones MD [address] [place], [place] [phone] (Wo rk) Social History Tobacco Use Types Packs/Day Years Used Date Smoking Tobacco: Never Assessed Sex Assigned at Date Recorded Not on file documented as of this encounter Miscellaneous Notes Dialysis Note - Denilson Holly MD - 07/02/2022 1:41 PM CDT Date: Jul 02, 2022 Patient Name: Speedy Hendricks : 1940 Chart #: [id number] Sex: M TRACK OILER: Denilson Holly MD LOCATION: [place] [phone] SCHEDULE: M-W-F 2nd Shift Chief Complaint: Acute kidney injury. The patient complains of the following - 07/02: He remains hesitant about access but ok if we schedule upper arm graft at [facility] after discussing again with him and both [...] HD, but still requiring HD. 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 Went to rehab, transferred back to [place] to [facility] for ongoing rehab closer to home. He has [facility] and in [place]. His daughter Raquel is ICU/BIOINFORMATICS DEVELOPER ([employer]one currently) and is very involved. Problem [...] - Tunneled AVG to be scheduled at [facility] Anemia: HEMOGLOBIN (G/DL) IN BLOOD g/dL 11.1 [...]
--- OUTSIDE RECORDS SUMMARY | 2022-08-14 11:13 | XMS_ITS | Encounter Summary ---
:1940 Author Organization [facility] Address [address] [place] [address] Care Team Providers Name Role Phone Unavailable Primary Care Provider Unavailable Encounter Details Date Type Department Care Team Description 06/13/2022 Orders Only [facility] O f Denilson Quinones MD [address] [place] [address] [place], [place] [phone] (Wo rk) Social History Tobacco Use [...] URINE CLEARANCE (06/13/2022) Analysis [facility]formed [facility] Time Signature Urea Nitrogen, 177 mg/dL [...] 06/14/2022 Unless otherwise specified, test(s) performed at: [facility], [address] [place] [address], [place] [address] RAIL SWITCH OPERATOR: Raheem Malik M.D., Ph.D For any questions, please call customer service at FREQUENCY:OTHER Resulting Agency Comment Specimen source: Urine Denilson Holly MD LAB URINE ORDERABLES Performing Organization Address City/[facility] Phon e Number APS SPECTRA [facility] (ABNORMAL) Spectrae Chemistry (06/13/2022) athologist Signature Creatinine 2.31 (H) 0.60 - 1.30 APS SPECTRA mg/dL [facility] Comment: Custom Exception Specimen (Source) Anatomical Collection Method Collection Time Re ceived Time Location / / Volume Laterality 06/13/2022 06/14/2022 2:50 AM CDT Resulting Agency Comment Specimen source: Serum Denilson Holly MD LAB BLOOD ORDERABLES Performing Organization Address [facility] Phon e Number APS SPECTRA [...] 06/14/2022 Unless otherwise specified, test(s) performed at: [facility], [address] [place] [address], [place] [address] RAIL SWITCH OPERATOR: Raheem Malik M.D., Ph.D For any questions, please call customer service at FREQUENCY:OTHER Resulting Agency Comment Specimen source: PD Fluid Denilson Holly MD LAB BLOOD ORDERABLES Performing Organization Address [facility] Phon e Number APS SPECTRA [...] 06/14/2022 Unless otherwise specified, test(s) performed at: [facility], [address] [place], [place] [address]ann [place] [address] RAIL SWITCH OPERATOR: Raheem Malik M.D., Ph.D For any questions, please call customer service at FREQUENCY:OTHER Resulting Agency Comment Specimen source: PD Fluid Denilson Holly MD LAB BLOOD ORDERABLES Performing Organization Address [facility] Phon e Number APS SPECTRA [facility] documented in this encounter Visit Diagnoses Not on filedocumented in this encounter
--- OUTSIDE RECORDS SUMMARY | 2022-08-14 11:13 | XMS_ITS | Encounter Summary ---
:1940 Author Organization [facility] Address [address] [place] [address] Care Team Providers Name Role Phone Unavailable Primary Care Provider Unavailable Encounter Details Date Type Department Care Team Description 06/11/2022 Orders Only [facility] O f Denilson Quinones MD [phone] [place] [address] [place], [place] [phone] (Wo rk) Social History Tobacco Use [...] 06/12/2022 Unless otherwise specified, test(s) performed at: [facility], [address] [place] [address], [place] [address] BUSINESS LAWYER: Raheem Malik M.D., Ph.D For any questions, please call customer service at FREQUENCY:OTHER Resulting Agency Comment Specimen source: Blood Denilson Holly MD LAB BLOOD ORDERABLES Performing Organization Address City/State/[facility] Code Phon e Number APS [...] 06/12/2022 Unless otherwise specified, test(s) performed at: [facility], [address] [place], [place] [address] [address] BUSINESS LAWYER: Raheem Malik M.D., Ph.D For any questions, please call customer service at FREQUENCY:OTHER Resulting Agency Comment Specimen source: Serum Denilson Holly MD LAB BLOOD ORDERABLES Performing Organization Address City/[facility] Code Phon e Number APS SPECTRA [facility] documented in this encounter Visit Diagnoses Not on filedocumented in this encounter
--- OUTSIDE RECORDS SUMMARY | 2022-08-14 11:14 | XMS_ITS | Encounter Summary ---
:1940 Author Organization [facility] Address [address] [place] [address] Care Team Providers Name Role Phone [facility] Primary Care Provider [phone] Reason for Visit Reason Onset Date Comments Pain 08/08/2021 Encounter Details Date Type Department Care Team Description 08/08/2021 [facility] Vascular Ramiro Loco MD [facility] [address] [place] [address] [place] [address] [phone] Social History Tobacco Use Types Packs/Day Years [...] Kim Neal - 08/20/2021 8:38 AM CDT [facility] Who is the name of the provider? Dr Gonzalez What is the location you see this provider at? [facility] Reason for call: Returned RN's call - relayed message - Pt is scheduled for Dr Gonzalez on 08/29/21 Reporting Coordinator: Raquel Phone number to call: [phone] Additional Notes: Telephone Encounter - Ro Taylor RN - 08/19/2021 4:37 PM CDT Discussed with Dr. Gonzalez, pt may have office visit with Dr. Gonzalez at next available, no further imaging needed. SHASTA Sotomayor, JOSE [facility] Office: [phone] Telephone Encounter - Cindy Taylor RN - 08/19/2021 4:29 PM CDT I called Raquel and Jami stating we will discuss with Dr. Gonzalez and get back to her. Cindy VEGAS, JOSE [facility] Office: [phone] Telephone Encounter - Kim Neal - 08/19/2021 3:55 PM CDT [facility] Who is the name of the [...] see Dr Gonzalez for another opinion/follow up. Reporting Coordinator: Raquel Phone number to call: [phone] Additional Notes: Pt stated he is still [...] Pt will need oral hydration. Routing to nursing scheduler to coordinate CTA c/a/p today. Please call pts daughter to coordinate [phone]. Then in person OV f/u with Dr. Loco at next nearest available. SHASTA Sotomayor, RN [facility] Office: [phone] Telephone Encounter - Ro Taylor RN - [...] has had consult with Dr. Orosco at [place], no further AAA surgery with Dr. Orosco. Reviewed with Rosario Hendricks MD. SHASTA Sotomayor, RN [facility] Office: [phone] Telephone Encounter - Lillian Uribe MA - [...] She would like a call back at [phone] documented in this encounter Plan of Treatment Not on filedocumented as of this encounter Visit Diagnoses Not on filedocumented in this encounter Additional Health Concerns Infection Onset Date Last Indicated Resolved Time MRSAComment: Positive 02/17/11 and 09/22/12 11/05/2018 019 Negatives 05/03/14 (HE), 12/01/14 (HE) documented as of this encounter Care Teams Intake Counselor Relationship Specialty Start Date End Date [facility] PCP - General 05/12/[address] [place] [address] documented as of this encounter
--- OUTSIDE RECORDS SUMMARY | 2022-08-14 11:14 | XMS_ITS | Encounter Summary ---
:1940 Author Organization [facility] Address [address] [place] [address] Care Team Providers Name Role Phone [facility] Primary Care Provider [phone] Encounter Details Date Type Department Care Team [...] with No / Unsure 09/23/2021 10:26 AM DAYLIGHT DRILLER someone who was confirmed or suspected to have Coronavirus / COVID-19? documented as of this encounter Plan of Treatment Not on filedocumented as of this encounter Visit Diagnoses Not on filedocumented in this encounter Additional Health Concerns Infection Onset Date Last Indicated Resolved Time MRSAComment: Positive 02/17/11 and 09/22/12 11/05/2018 019 Negatives 05/03/14 (HE), 12/01/14 (HE) documented as of this encounter Care Teams Double End Production Grinder Relationship Specialty Start Date End Date [facility] PCP - General 05/12/[address] [place] [address] documented as of this encounter
--- OUTSIDE RECORDS SUMMARY | 2022-08-14 11:14 | XMS_ITS | Encounter Summary ---
:1940 Author Organization [facility] Address [address] [place] [address] Care Team Providers Name Role Phone Clinic, [facility] Primary Care Provider [phone] Reason for Visit Reason Onset Date Comments Appointment 05/28/2020 Encounter Details Date Type Department Care Team Description 05/28/2020 Telephone [facility] Ramiro Loco MD Appointment [facility] [place] [address] [place] [address] [place] [address] [phone] Social History Tobacco Use Types Packs/Day Years [...] 04/26/2020 and 05/28/2020 reminding patient to call [facility] & schedule an appointment per follow-up orders by Dr. Loco. These orders were expected to be completed by April,. No further attempts will be made to contact patient for scheduling per these follow-up orders. Carolyn Jerome Cone Cleaner [facility] Office: [phone] documented in this encounter Plan of Treatment Not on filedocumented as of this encounter Visit Diagnoses Not on filedocumented in this encounter Additional Health Concerns Infection Onset Date Last Indicated Resolved Time MRSAComment: Positive 02/17/11 and 09/22/12 11/05/2018 019 Negatives 05/03/14 (HE), 12/01/14 (HE) documented as of this encounter Care Teams Tree Warden Relationship Specialty Start Date End Date Bandar, Kehinde [place] PCP - General 05/12/[address] [place] [address] documented as of this encounter
--- OUTSIDE RECORDS SUMMARY | 2022-08-14 11:14 | XMS_ITS | Encounter Summary ---
:1940 Author Organization [facility] Address [address] [place] [address] Care Team Providers Name Role Phone Unavailable Primary Care Provider Unavailable Encounter Details Date Type Department Care Team Description 05/21/2022 Orders Only [facility] O f Denilson Quinones MD [address] [place] [address] [place], [place] [phone] (Wo rk) Social History Tobacco Use [...] 05/27/2022 Unless otherwise specified, test(s) performed at: [facility], [address] [place] [address], [place] [address] SUPERVISOR PUMPING STATION: Raheem Malik M.D., Ph.D For any questions, [...] 24 mL/min APS SPECTRA 2020 [facility] Comment: [facility] has implemented the recommended eGFR calculation that [...] 05/27/2022 Unless otherwise specified, test(s) performed at: [facility], [facility] [place] [place] [address] SUPERVISOR PUMPING STATION: Raheem Malik M.D., Ph.D For any questions, please call customer service at FREQUENCY:MONTHLY Resulting Agency Comment Specimen source: Serum Denilson Holly MD LAB [id number] NSOLICITED RESULTS Performing Organization Address City/State/[facility] [...] 05/22/2022 Unless otherwise specified, test(s) performed at: [facility], [address] [place] [address] [place] [address] SUPERVISOR PUMPING STATION: Raheem Malik M.D., Ph.D For any questions, [...] 05/22/2022 Unless otherwise specified, test(s) performed at: [facility], [address] [place] [address], [place] [address] SUPERVISOR PUMPING STATION: Raheem Malik M.D., Ph.D For any questions, [...] 05/22/2022 Unless otherwise specified, test(s) performed at: [facility], [address] [place] [address] gideon [facility] [address] SUPERVISOR PUMPING STATION: Raheem Malik M.D., Ph.D For any questions, please call customer service at FREQUENCY:MONTHLY Resulting Agency Comment Specimen source: Blood Denilson Holly MD LAB BLOOD ORDERABLES Performing Organization Address City/State/ZIP Code Phon e Number APS SPECTRA [facility] documented in this encounter Visit Diagnoses Not on filedocumented in this encounter
--- OUTSIDE RECORDS SUMMARY | 2022-08-14 11:14 | XMS_ITS | Encounter Summary ---
:1940 Author Organization [facility] Address [address] [place] [address] Care Team Providers Name Role Phone Unavailable Primary Care Provider Unavailable Encounter Details Date Type Department Care Team Description 05/23/2022 Orders Only [facility] f Denilson Quinones MD [address] [place] [address] [place], [place] [phone] (Wo rk) Social History Tobacco Use [...] 05/26/2022 Unless otherwise specified, test(s) performed at: [facility], [address] [place] [address], [place] [address] CLINICAL VETERINARIAN: Raheem Malik M.D., Ph.D For any questions, please call customer service at FREQUENCY:OTHER Resulting Agency Comment Specimen source: Urine Denilson Holly MD LAB URINE ORDERABLES Performing Organization Address [facility] Phon e Number [facility] PATIENT INFORMATION (05/23/2022) athologist [facility] Patient BSA 1.75 sq. M. [facility] Comment: Normalized values are calculated using t he patient's actual BSA and normalized to the average BSA of 1.73m2. Specimen (Source) Anatomical Collection Method Collection Time Re ceived Time Location / / Volume Laterality 05/23/2022 05/26/2022 12:2 5 PM CDT Narrative [facility] - 05/26/2022 Unless otherwise specified, test(s) performed at: [facility], [address] [place] [address], [place] [address] CLINICAL VETERINARIAN: Raheem Malik M.D., Ph.D For any questions, please call customer service at FREQUENCY:OTHER Resulting Agency Comment Specimen source: PD Fluid Denilson Holly MD LAB BLOOD ORDERABLES Performing Organization Address City/[facility] Phon e Number [facility] (ABNORMAL) [...] 27 mL/min APS SPECTRA 2020 [facility] Comment: [facility] has implemented the recommended eGFR calculation [...] 05/26/2022 Unless otherwise specified, test(s) performed at: [facility], [address] [place] [address], [place] [address] CLINICAL VETERINARIAN: Raheem Malik M.D., Ph.D For any questions, please call customer service at FREQUENCY:OTHER Resulting Agency Comment Specimen source: Serum Denilson Holly MD LAB [id number] NSOLICITED RESULTS Performing Organization Address City/State/ZIP Code [...] 05/26/2022 Unless otherwise specified, test(s) performed at: [facility], [address] [place] [address], [place] [address] CLINICAL VETERINARIAN: Raheem Malik M.D., Ph.D For any questions, please call customer service at FREQUENCY:OTHER Resulting Agency Comment Specimen source: PD Fluid Denilson Holly MD LAB BLOOD ORDERABLES Performing Organization Address City/State/ZIP Code Phon e Number [facility] documented in this encounter Visit Diagnoses Not on filedocumented in this encounter
--- OUTSIDE RECORDS SUMMARY | 2022-08-14 11:14 | XMS_ITS | Encounter Summary ---
:1940 Author Organization [place] Address [address] [place] [address] Care Team Providers Name Role Phone [facility] Primary Care Provider Reason for Visit Diagnostic Imaging CT Scan (Routine) - Closed Specialty Diagnoses / Procedures Referred By Contact Refer red To Contact Diagnoses Thoracic aortic aneurysm without rupture Abdominal aortic aneurysm (AAA) without rupture Ramiro Loco MD Procedures CT Chest Abdomen Pelvis w/o Contrast CTA Chest Abdomen Pelvis w Contrast [address] [place] [address] Referral ID Status Reason Start Date Expiration Date Visits Requ ested Visits Authorized [id number] Closed 11/29/2019 11/28/2020 1 1 Encounter Details Date Type Department Care Team Description 08/08/2021 Hospital Encounter [facility] Ramiro Loco oracic aortic aneurysm without rupture (H); [facility] Gisela Garcia MD Abdominal aortic aneurysm (AAA) without rupture (H) [address] [place] [phone] [place] [address] [phone] Social History Tobacco Use Types Packs/Day Years [...] CT CHEST ABDOMEN PELVIS W/O CONTRAST LOCATION: [facility] DATE/TIME: 08/08/2021 4:20 PM INDICATION: history [...] CHEST ABDOMEN PELVIS W/O CONTRA ST LOCATION: [facility] DATE/TIME: 08/08/2021 4:20 PM INDICATION: history [...] City/State/ZIP Code Phon e Number [place] [address] Care Lab [address] 1st floor, [...] documented as of this encounter Care Teams Bridge Manager Relationship Specialty Start Date End Date [facility] PCP - General 05/12/[address] [place] [address] documented as of this encounter
--- OUTSIDE RECORDS SUMMARY | 2022-08-14 11:14 | XMS_ITS | Encounter Summary ---
:1940 Author Organization [place] Address [address] [place] [address]. [place] [address] Care Team Providers Name Role Phone [facility] Primary Care Provider Reason for Visit Reason Onset Date Comments Clinic Care Coordination - Follow-up 11/15/2019 Encounter Details Date Type Department Care Team Description 11/15/2019 Telephone [facility] Ramiro Loco Cli [facility]ly [facility] Félix juarez MD Coordination - [address] Follow-up [phone] [place] [address] [place] [address] (Wo rk) Social History Tobacco [...] 9:12 AM CST Order entered. SHASTA Winkler, RN-[facility] NG CLOTH CUTTER Telephone Encounter - Ro Taylor RN - 11/25/2019 2:34 PM CST Pt called back, left vm to discuss lab request (creat/gfr). I called pt back, pt reports labs completed on 11/24/19 at [facility]. Per [facility] Creat 1.5 and GFR 55 on 11/24/19. I explained to pt he does not need another lab draw and we will work with these lab results. Pt notes understanding. Routing to Dr. Loco's nurse Leatha for placement of imaging order (to be done in 6 months) per Dr. Loco's request. SHASTA Sotomayor, JOSE [facility] [place] NG CLOTH CUTTER Telephone Encounter - oR Taylor RN - 11/25/2019 1:49 PM CST Pt called back , left vm to discuss labs ordered by Dr. Loco. SHASTA Sotomayor, JOSE [facility] NG CLOTH CUTTER Telephone Encounter - Ro Taylor RN - 11/15/2019 2:41 PM CST Creatinine check/lab order placed in [facility]. I called pt, left vm explaining he can get this checked at his convenience, upon results we will then order his follow up imaging and OV per Dr. Loco and to call if any questions. SHASTA Sotomayor, JOSE [facility] [place] NG CLOTH CUTTER Telephone Encounter - Ro Taylor RN - [...] or CT of chest/abd/pelvis. SHASTA Sotomayor, RN [facility] NG CLOTH CUTTER documented in this encounter Plan of [...] documented as of this encounter Care Teams Bilingual Customer Service Specialist Relationship Specialty Start Date End Date [facility], [facility] [place] PCP - General 05/12/[address] [place] [address] documented as of this encounter
--- OUTSIDE RECORDS SUMMARY | 2022-08-14 11:14 | XMS_ITS | Encounter Summary ---
:1940 Author Organization [facility] Address [address] [place] [address] Care Team Providers Name Role Phone Unavailable Primary Care Provider Unavailable Encounter Details Date Type Department Care Team Description 05/02/2022 Orders Only [facility] f Denilson Quinones MD [address] [place] [address] [place], [place] [phone] (Wo rk) Social History Tobacco Use [...] 05/03/2022 Unless otherwise specified, test(s) performed at: [facility], [address] [place] [address] [place] [address] SURGICAL SERVICES TECH: Raheem Malik M.D., Ph.D For any questions, [...] MD LAB BLOOD ORDERABLES Performing Organization Address City/[facility]/ZIP Code Phon e Number APS SPECTRA [facility] GFR (05/02/2022) P athologist Signature eGFR CKD-EPI CR 26 mL/min [facility]PS SPECTRA 2020 [facility] Comment: [facility] has implemented the recommended eGFR calculation that [...] 05/03/2022 Unless otherwise specified, test(s) performed at: [facility], [address] [place] [address] [place] [address] SURGICAL SERVICES TECH: Raheem Malik M.D., Ph.D For any questions, please call customer service at FREQUENCY:OTHER Resulting Agency Comment Specimen source: Serum Denilson Holly MD LAB [id number] NSOLICITED RESULTS Performing Organization Address City/State/ZIP Code Phon e Number [facility] documented in this encounter Visit Diagnoses Not on filedocumented in this encounter
--- OUTSIDE RECORDS SUMMARY | 2022-08-14 11:14 | XMS_ITS | Encounter Summary ---
:1940 Author Organization [facility] Address [address] [place] [address] Care Team Providers Name Role Phone Unavailable Primary Care Provider Unavailable Encounter Details Date Type Department Care Team Description 05/28/2022 Treatment [facility] f Denilson Quinones MD [address] [place], [place] [phone] (Wo rk) Social History Tobacco Use Types Packs/Day Years Used Date Smoking Tobacco: Never Assessed Sex Assigned at Date Recorded Not on file documented as of this encounter Miscellaneous Notes Dialysis Note - Denilson Holly MD - 05/28/2022 12:50 PM CDT Date: May 28, 2022 Patient Name: Speedy Hendricks : 1940 Chart #: [id number] Sex: M CAMPAIGN FUNDRAISER: Denilson Holly MD LOCATION: [place] [phone] SCHEDULE: M-W- 2nd Shift Chief Complaint: Acute [...] requiring HD. Transferred from [place] rehab to [facility], hoping to get home. [facility] here today, dry weight much lower than what they had listed it appears. Med list reviewed from [facility], on midodrine for hypotension with HD. [...] removed). Went to rehab, transferred back to [place] to [facility] for ongoing rehab closer to home. [facility] [place]. His daughter Raquel is ICU/TOLL MECHANIC (ramone currently) and is very involved. [...] and he is considering. WIll send to [facility] as soon as he accepts Will keep [...]
--- OUTSIDE RECORDS SUMMARY | 2022-08-14 11:14 | XMS_ITS | Encounter Summary ---
:1940 Author Organization [place] Address [address] [place] [address] Care Team Providers Name Role Phone Clinic, [facility] Primary Care Provider [phone] Encounter Details Date Type Department Care Team Description 11/15/[address] [facility] Ramiro Loco Thoracic aortic Vascular Clinic Félix Garcia MD aneurysm without [address] rupt ure (H) (Primary [address] Dx) [place] [address] [place] [id number] Social History Tobacco Use Types Packs/Day Years [...] encounter Results (ABNORMAL) Creatinine (12/08/2019 10:59 AM HEAD WRESTLING COACH) Analysis Performed At [facility] Time Signature Creatinine 1.36 (H) 0.66 - 12/09/2019 [place] 1.25 mg/dL 9:03 AM HEAD WRESTLING COACH CLINICS [facility] GFR Estimate 50 (L) >60 12/09/2019 [place] mL/min/{1. 9:03 AM HEAD WRESTLING COACH CLINICS 73_m2} [facility] Comment: Non GFR Calc Starting 10/05/2018, serum creatinine ba sed estimated GFR (eGFR) will be calculated using the Chronic Kidney Dise ase Epidemiology Collaboration (CKD-EPI) equation. GFR Estimate If 58 (L) >60 mL/min/{1.73_m2} 12/09/2019 9:03 AM [facility] Comment: GFR Calc Starting 10/05/2018, serum creatinine ba sed estimated GFR (eGFR) will be calculated using the Chronic Kidney Dise ase Epidemiology Collaboration (CKD-EPI) equation. Specimen Anatomical Collection Method Collection Time Receive d Time (Source) Location / / Volume Laterality Blood specimen 12/08/2019 10:59 0 (specimen) AM HEAD WRESTLING COACH 11:04 AM HEAD WRESTLING COACH Ramiro Loco MD LAB - BLOOD ORDERABLES Performing Organization Address City/State/ZIP Code Phon e Number [facility] [address] [place] [address] documented in this encounter Visit Diagnoses Diagnosis Thoracic aortic aneurysm without rupture - Primary Thoracic aneurysm without mention of rup ture documented in this encounter Additional Health Concerns Infection Onset Date Last Indicated Resolved Time MRSAComment: Positive 02/17/11 and 09/22/12 11/05/2018 019 Negatives 05/03/14 (HE), 12/01/14 (HE) documented as of this encounter Care Teams Artificial Inseminator Relationship Specialty Start Date End Date [facility] - General 05/12/[address] [place] [address] documented as of this encounter
--- OUTSIDE RECORDS SUMMARY | 2022-08-14 11:14 | XMS_ITS | Encounter Summary ---
:1940 Author Organization [facility] Address [address] [place] [address] Care Team Providers Name Role Phone Unavailable Primary Care Provider Unavailable Encounter Details Date Type Department Care Team Description 04/16/2022 Office Communication [facility] [place] MD [address] [place] [phone] Social History Tobacco Use [...]
--- OUTSIDE RECORDS SUMMARY | 2022-08-14 11:14 | XMS_ITS | Encounter Summary ---
:1940 Author Organization [facility] Address [address] [place] [address] Care Team Providers Name Role Phone Unavailable Primary Care Provider Unavailable Encounter Details Date Type Department Care Team Description 04/16/2022 Treatment [facility] f Denilson Quinones MD [address] [place], [place] [address] [phone] (Wo rk) Social History Tobacco Use Types Packs/Day Years Used Date Smoking Tobacco: Never Assessed Sex Assigned at Date Recorded Not on file documented as of this encounter Miscellaneous Notes Dialysis Note - Denilson Holly MD - 04/16/2022 3:44 PM CDT Date: Apr 16, 2022 Patient Name: Speedy Hendricks : 1940 Chart #: [id number] Sex: M Patient Type: DEJA Modality: Hemodialysis Authorization Coordinator: Denilson Holly MD Location: [place] [phone] Schedule: M-W-F 2nd Shift Initial Access Date [...] Name: Speedy Hendricks : 1940 Chart #: [id number] Sex: M V/STOL LANDING SIGNAL OFFICER: Denilson Holly MD LOCATION: [phone] SCHEDULE: -W- 2nd Shift Chief Complaint: Acute [...] requiring HD. Transferred from [place] rehab to [facility] here, hoping to get home. First Hd here today, dry weight much lower than what they had listed it appears. Med list reviewed from [facility], on midodrine for hypotension with [...] removed). Went to rehab, transferred back to [place] to [facility] for ongoing rehab closer to home. [facility] [place]. His daughter Raquel is ICU/NET TECHNICAL ARCHITECT (ramone currently) and is very involved. Problem [...] - Cath - Tunneled Will send to [facility] for AVF/AVG placement as on HD for [...]
--- OUTSIDE RECORDS SUMMARY | 2022-08-14 11:14 | XMS_ITS | Encounter Summary ---
:1940 Author Organization [place] Address [address] [place] [address] Care Team Providers Name Role Phone Kehinde Portillo Primary Care Provider [phone] Encounter Details Date Type Department Care [...] documented as of this encounter Care Teams Transport Aircrewman Relationship Specialty Start Date [facility] - [facility] [place] [address] documented as of this encounter
--- OUTSIDE RECORDS SUMMARY | 2022-08-14 11:14 | XMS_ITS | Clinical Summary ---
:1940 Author Organization [place] Address [address] [place] [address] Care Team Providers Name Role Phone Clinic, [facility] Primary Care Provider [phone] Gallito Gonzalez MD Unavailable Allergies Active Allergy [...] Comments Blood Pressure 161/78 09/23/2021 10:34 AM STUDENT COUNSELLOR Pulse 57 09/23/2021 10:34 AM STUDENT COUNSELLOR Temperature 36.6 ??C (97.9 ??F) 11/09/2018 7:31 AM STUDENT COUNSELLOR Respiratory Rate 16 09/23/2021 10:34 AM STUDENT COUNSELLOR Oxygen Saturation 99% 09/23/2021 10:34 AM STUDENT COUNSELLOR Inhaled Oxygen Concentration - - Weight 79.4 kg (175 lb) 09/23/2021 10:34 AM STUDENT COUNSELLOR Height 167.6 cm (5' 6) 09/23/2021 10:34 AM STUDENT COUNSELLOR Body Mass Index 28.25 09/23/2021 10:34 AM STUDENT COUNSELLOR Plan of Treatment Health Maintenance Due Date [...] this topic Medical Devices Implanted Type Area Guard Range Device Shelf Model / Identifier Expiration Serial / Date Lot Graft Master Matrix 10cc [id number] Bone/Tissue N/A: Back [employer] 04/17/2017 [id number] / Implanted: Qty: 1 on 11/29/2014 /Biologic / [id number] Medtronic Valiant Navion Thoracic Graft System (37mm X 37mm X 223mm X 20fr.) Graft N/A: Aorta [employer] 07/25/2020 [id number] / Implanted: Qty: 1 on 11/05/2018 by Juan Delcid MD at [facility] [id number] / Alessio Precut Contoured 70x5.5mm Metallic N/A: Back [employer] [id number] / Implanted: Qty: 2 on 11/29/2014 Hardware/An / chor NA Cervical Rods/Screws Angio-Seal Vip Vascular Closure Device Right: 08/18/2019 [id number] / Implanted: Qty: 1 on 11/05/2018 by Juan Delcid MD at [facility] Arterial / [id number] Description: Perclose Device sutured int o the right common femoral artery. Explanted Type Area Guard Range Device Shelf Model / Identifier Expiration Date Ser ial / Lot Pedicle Screws Metallic And Rods Hardware/Anch or Additional Health Concerns Infection Onset Date Last Indicated MRSAComment: Positive 02/17/11 and 09/22/12 11/05/2018 11/05/2018 Negatives 05/03/14 (HE), 12/01/14 (HE) Insurance Payer Benefit Plan / Subscriber ID Effective Phone Address T ype Group Dates MEDICARE MEDICARE FOR HB [id number] 2012-Prese [phone] ATTN CLAIMS Medicare SUPPLEMENT nt 40 [address] [place] [address] BCBS BCBS [place] [id number] 2012-Prese [phone] [address] [address] PPO BLUE nt 00 [place] [address] Advance Directives For more information, please contact: [phone] Latest Code Status on File Code Status Date Activated Date Inactivated Comments Full Code 11/15/2017 2:04 AM 11/15/2017 2:27 PM Code Status History Code Status Date Activated Date Inactivated Comments Full Code 05/12/2017 1:29 PM 11/15/2017 2:04 AM Full Code 05/05/2017 5:50 PM 05/12/2017 1:29 PM Care Teams Stitcher Utility Relationship Specialty Start Date End Date Clinic, [facility] PCP - General 05/12/17 [address] [place] [address] Gallito Gonzalez MD Assigned Heart and Vascular 09/29/21 [address] Provider [place] [address]
--- OUTSIDE RECORDS SUMMARY | 2022-08-14 11:14 | XMS_ITS | Encounter Summary ---
:1940 Author Organization [facility] Address [address] [place] [address] Care Team Providers Name Role Phone Unavailable Primary Care Provider Unavailable Encounter Details Date Type Department Care Team Description 05/14/2022 Orders Only [facility] O f Denilson Quinones MD [address] [place] [address] [place], [place] [phone] (Wo rk) Social History Tobacco Use [...] 05/15/2022 Unless otherwise specified, test(s) performed at: [facility], [address] [place] [address] [place]ideon [place] [address] IMAGE ASSEMBLER: Raheem Malik M.D., Ph.D For any questions, [...] ORDERABLES Performing Organization Address City/[facility]/ZIP Code Phon e Number APS SPECTRA [facility] GFR (05/14/2022) P athologist Signature eGFR CKD-EPI CR 24 mL/min APS SPECTRA 2020 [facility] Comment: [facility] has implemented the recommended eGFR calculation that [...] 05/15/2022 Unless otherwise specified, test(s) performed at: [facility], [address] [place] [address] [place] [address] IMAGE ASSEMBLER: Raheem Malik M.D., Ph.D For any questions, please call customer service at FREQUENCY:OTHER Resulting Agency Comment Specimen source: Serum Denilson Holly MD LAB [id number] NSOLICITED RESULTS Performing Organization Address City/State/ZIP Code Phon e Number [facility]PS SPECTRA [facility] documented in this encounter Visit Diagnoses Not on filedocumented in this encounter
--- OUTSIDE RECORDS SUMMARY | 2022-08-14 11:14 | XMS_ITS | Encounter Summary ---
:1940 Author Organization [place] Address [address] [place] [address] Care Team Providers Name Role Phone Kehinde Portillo Primary Care Provider [phone] Encounter Details Date Type Department Care Team [...] documented as of this encounter Care Teams Quotation Clerk Relationship Specialty Start Date End Date [facility] - [facility] [place] [address] documented as of this encounter
--- OUTSIDE RECORDS SUMMARY | 2022-08-14 11:14 | XMS_ITS | Encounter Summary ---
:1940 Author Organization [place] Address [address] [facility] [place] [address] Care Team Providers Name Role Phone [facility], [facility] Primary Care Provider [phone] Reason for Referral Diagnostic Imaging CT Scan (Routine) - Closed Specialty Diagnoses / Procedures Referred By Contact Refer red To Contact Radiology. 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 Butch Brown MD Ct Scan [facility] Procedures CT Chest Abdomen Pelvis w/o Contrast [address] [place] [address] [address] Phone: Fax: Referral ID Status Reason Start Date Expiration Date Visits Requ ested Visits Authorized [id number] Closed 05/17/2019 05/16/2020 1 1 Encounter Details Date Type Department Care Team Description 11/09/2019 Hospital Encounter [facility] Butch Brown aortic [facility] MD Pierre aneurysm (AAA) [address] [place] [address] AVE with out rupture (H) [address] [place] [address] Social History Tobacco Use Types Packs/Day [...] aortic Results for this PELVIS W/O CONTRAST ACCIDENT INVESTIGATOR aneurysm (AAA) proced ure are in without rupture (H) the resu lts section. documented in this encounter Results CT Chest Abdomen Pelvis w/o Contrast (11/09/2019 11:25 AM ACCIDENT INVESTIGATOR) Anatomical Region Laterality Modality Abdomen/Pelvis, SUBRAD CT BODY, UMP CT CHEST, UMP CT Computed Tomography ABDOMEN PELVIS, Chest, RAD CT Specimen (Source) Anatomical Location Collection Method / Collectio n Time Received Time / Laterality Volume Impressions 11/09/2019 3:17 PM ACCIDENT INVESTIGATOR IMPRESSION: 1. 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 2. The aneurysm sac in the distal thorac ic aorta and an infrarenal abdominal aortic aneurysm have increased slightly in size since the previous exam. 3. Moderate age-indeterminate anterior c ompression of the T7 vertebral body is new since the previous exam. JON NICHOLS MD Narrative 11/09/2019 3:[address] CHEST, ABDOMEN AND PELVIS WITHOUT CONTRAST [...] as of this encounter Care Teams Care Management Assistant Relationship Specialty Start Date End Date [facility], [facility] PCP - General 05/12/[address] [place] [address] documented as of this encounter
--- OUTSIDE RECORDS SUMMARY | 2022-08-14 11:14 | XMS_ITS | Encounter Summary ---
:1940 Author Organization [place] Address [address] [facility] [place] [address] Care Team Providers Name Role Phone [facility], [facility] Primary Care Provider [phone] Reason for Visit Reason Comments RECHECK *PREV Dr Lewis, Dr Brown & Dr Loco Pt - CTA done 08/08/21- History of thoracoabdominal aortic aneu rysm; TEVAR 11/05/18; 6 mo f/u to 11/09/[address] Loco *jj Pt is sti ll having back pain *LMB 08/19/21 - R/S from 08/29/21 *B 08/28/21 Encounter Details Date Type Department Care Team Description 09/23/2021 Office Visit [facility] Gallito Gonzalez [place]ac[place] bdominal aortic [facility] MD Eliel aneurysm (TAAA) without Tram [address] rupture (H) (Primary Dx) [address] [place] [address] [place] [phone] Social History Tobacco Use Types Packs/Day Years [...] with No / Unsure 09/23/2021 10:26 AM MAIL DELIVERY SUPERVISOR someone who was confirmed or suspected to have Coronavirus / COVID-19? documented as of this encounter Last Filed Vital Signs Vital Sign Reading Time Taken Comments Blood Pressure 161/78 09/23/2021 10:34 AM MAIL DELIVERY SUPERVISOR Pulse 57 09/23/2021 10:34 AM MAIL DELIVERY SUPERVISOR Temperature - - Respiratory Rate 16 09/23/2021 10:34 AM MAIL DELIVERY SUPERVISOR Oxygen Saturation 99% 09/23/2021 10:34 AM MAIL DELIVERY SUPERVISOR Inhaled Oxygen Concentration - - Weight 79.4 kg (175 lb) 09/23/2021 10:34 AM MAIL DELIVERY SUPERVISOR Height 167.6 cm (5' 6) 09/23/2021 10:34 AM MAIL DELIVERY SUPERVISOR Body Mass Index 28.25 09/23/2021 10:34 AM MAIL DELIVERY SUPERVISOR documented in this encounter Progress Notes Von Landeros CMA - 09/23/2021 10:30 AM CST [facility] Patient is here for [...] services and agency name: Kelsey Landeros CMA DELIVERY SUPERVISOR Gallito Gonzalez MD - 09/23/2021 10:30 AM CST Mr. Hendricks is a 81-year-old male who is well-known to the [facility] with and as such has been previously [...] I discussed the case with Dr. Orosco. DELIVERY SUPERVISOR documented in this encounter Plan of Treatment Not on filedocumented as of this encounter Visit Diagnoses Diagnosis Thoracoabdominal aortic aneurysm (TAAA) without rupture - Primary documented in this encounter Additional Health Concerns Infection Onset Date Last Indicated Resolved Time MRSAComment: Positive 02/17/11 and 09/22/12 11/05/2018 019 Negatives 05/03/14 (HE), 12/01/14 (HE) documented as of this encounter Care Teams Casting Repairer Relationship Specialty Start Date End Date Clinic, [facility] PCP - General 05/12/17 [address] [place] [address] documented as of this encounter
--- OUTSIDE RECORDS SUMMARY | 2022-08-14 11:14 | XMS_ITS | Encounter Summary ---
:1940 Author Organization [facility] Address [address] [place] [address] Care Team Providers Name Role Phone Unavailable Primary Care Provider Unavailable Encounter Details Date Type Department Care Team Description 05/14/2022 Treatment [facility] Denilson Quinones MD [address] [place] [address] [place], [place] [phone] (Wo rk) Social History Tobacco Use Types Packs/Day Years Used Date Smoking Tobacco: Never Assessed Sex Assigned at Date Recorded Not on file documented as of this encounter Miscellaneous Notes Dialysis Note - Denilson Holly MD - 05/14/2022 1:29 PM CDT Date: May 14, 2022 Patient Name: Speedy Hendricks : 1940 Chart #: [id number] Sex: M NAMED ACCOUNT EXECUTIVE: Denilson Holly MD LOCATION: [place] [phone] SCHEDULE: M-W-F 2nd Shift Chief Complaint: Acute [...] but still requiring HD. Transferred from [place] rehab to [facility] here, hoping to get home. [facility] here today, dry weight much lower than what they had listed it appears. Med list reviewed from [facility], on midodrine for hypotension with [...] of above, complex co-morbidities, hospitalized in [place] for AAA rupture while on boat -> TEVAR extension on 01/03/22 -> multiple complications including ARF requiring CRRT/HD, staph pneumonia, chronic resp failure with long mech vent/trach (trach out), R hydropneumothorax, DVT, a-fih, UGI bleed, DIC, critical illness myopathy, sepsis, and dysphagia (had feeding tube, now removed). Went to rehab, transferred back to [place] to [facility] for ongoing rehab closer to home. He has [facility] and in [place]. His daughter Raquel is ICU/DISTRICT SALES MANAGER (ramone currently) and is very involved. [...] procaine Unknown Med list reviewed from [facility] Adequacy & Blood Pressure: spKt/V [...]
--- OUTSIDE RECORDS SUMMARY | 2022-08-14 11:14 | XMS_ITS | Encounter Summary ---
:1940 Author Organization [facility] Address [address] [place] [address] Care Team Providers Name Role Phone Unavailable Primary Care Provider Unavailable Encounter Details Date Type Department Care Team Description 05/19/2022 Orders Only [facility] Denilson Quinones MD [address] [place] [address] [place], [place] [phone] (Wo rk) Social History Tobacco Use [...] 24 mL/min APS SPECTRA 2020 [facility] Comment: [facility] has implemented the recommended eGFR calculation that [...] 05/20/2022 Unless otherwise specified, test(s) performed at: [facility], [address] [place] [address] DRIVING INSTRUCTOR: Raheem Malik M.D., Ph.D For any questions, please call customer service at FREQUENCY:OTHER Resulting Agency Comment Specimen source: Serum Denilson Holly MD LAB [id number] NSOLICITED RESULTS Performing Organization Address City/[facility] Phon e Number APS SPECTRA [...] 05/20/2022 Unless otherwise specified, test(s) performed at: [facility], [address] [place] [address] DRIVING INSTRUCTOR: Raheem Malik M.D., Ph.D For any questions, please call customer service at FREQUENCY:OTHER Resulting Agency Comment Specimen source: PD Fluid Denilson Holly MD LAB BLOOD ORDERABLES Performing Organization Address City/[facility] Phon e Number APS SPECTRA [facility] documented in this encounter Visit Diagnoses Not on filedocumented in this encounter
--- OUTSIDE RECORDS SUMMARY | 2022-08-14 11:14 | XMS_ITS | Encounter Summary ---
:1940 Author Organization [place] Address [address] [facility] [place] [address] Care Team Providers Name Role Phone Clinic, [facility] Primary Care Provider [phone] Reason for Visit Reason Comments RECHECK 6 month follow up visit. Encounter Details Date Type Department Care Team Description 11/09/2019 Office Visit [facility] Butch Brown MD [address] [place] [id number] Thoracoabdominal aortic aneurysm (TAAA) without rupture (H) (Primary Dx); Surgery Clinic Ramiro Loco MD [address] [place] [place] [id number] CKD (chronic kidney disease) stage 3, GF R 30-59 ml/min (H) [address] [place] [address] Social History Tobacco Use Types [...] Comments Blood Pressure 128/76 11/09/2019 1:19 PM COMPUTER NETWORKER Pulse 59 11/09/2019 1:19 PM COMPUTER NETWORKER Temperature - - Respiratory Rate 16 11/09/2019 1:19 PM COMPUTER NETWORKER Oxygen Saturation 98% 11/09/2019 1:19 PM COMPUTER NETWORKER Inhaled Oxygen Concentration - - Weight 82.6 kg (182 lb) 11/09/2019 1:19 PM COMPUTER NETWORKER Height 167.6 cm (5' 6) 11/09/2019 1:19 PM COMPUTER NETWORKER Body Mass Index 29.38 11/09/2019 1:19 PM COMPUTER NETWORKER documented in this encounter Progress Notes Ramiro [...] Hendricks spent the last several months in [place]. Dr. Brown has left our practice. Mr. Hendricks presents to my vascular surgical office today to review a noncontrasted CT scan of the chest, abdomen, and pelvis and to once again discuss possible EVAR. He was accompanied by his daughter. He did have a fall while vacationing in [place] with multiple resultant rib fractures. Apart from [...] would absolutely refer him to [facility] to discuss those surgical options. Presently [...] in complete agreement with our plan. Total dbmy-di-oagy time was 40 minutes, greater than 50% spent providing counseling and education. David Loco MD UTER NETWORKER documented in this encounter Plan of Treatment [...] documented as of this encounter Care Teams Regasification Plant Operator Relationship Specialty Start Date End Date [facility] PCP - General 05/12/[address] [place] [address] documented as of this encounter
--- OUTSIDE RECORDS SUMMARY | 2022-08-14 11:14 | XMS_ITS | Encounter Summary ---
:1940 Author Organization [place] Address [address] [place] [address] Care Team Providers Name Role Phone Clinic, [facility] Primary Care Provider [phone] Encounter Details Date Type Department Care Team Description 12/08/2019 Orders Only [facility] Tho racic aortic aneurysm [facility] without rupture (H) [address] [place] [address] Social History Tobacco Use [...] AM Thoracic aortic Resul ts for this MEDICAL AND HEALTH SERVICES MANAGER aneurysm without procedure a re in the rupture (H) results section . documented in this encounter Results (ABNORMAL) Creatinine (12/08/2019 10:59 AM MEDICAL AND HEALTH SERVICES MANAGER) Analysis Performed At [facility] logis Time Signature Creatinine 1.36 (H) 0.66 - 12/09/2019 [place] 1.25 mg/dL 9:03 AM MEDICAL AND HEALTH SERVICES MANAGER [facility]INICS [facility] GFR Estimate 50 (L) >60 12/09/2019 [place] mL/min/{1. 9:03 AM [facility] 73_m2} [facility] Comment: Non GFR Calc Starting 10/05/2018, serum creatinine ba sed estimated GFR (eGFR) will be calculated using the Chronic Kidney Dise [facility] Epidemiology Collaboration (CKD-EPI) equation. GFR Estimate If 58 (L) >60 mL/min/{1.73_m2} 12/09/2019 9:03 AM [facility] Comment: GFR Calc Starting 10/05/2018, serum creatinine ba sed estimated GFR (eGFR) will be calculated using the Chronic Kidney Dise ase Epidemiology Collaboration (CKD-EPI) equation. Specimen Anatomical Collection Method Collection Time Receive d Time (Source) Location / / Volume Laterality Blood specimen 12/08/2019 10:59 0 (specimen) AM MEDICAL AND HEALTH SERVICES MANAGER 11:04 AM MEDICAL AND HEALTH SERVICES MANAGER Ramiro Loco MD LAB - BLOOD ORDERABLES Performing Organization Address City/State/ZIP Code Phon e Number [facility] [address] [place] [address] documented in this encounter Visit Diagnoses Diagnosis Thoracic aortic aneurysm without rupture Thoracic aneurysm without mention of rup ture documented in this encounter Additional Health Concerns Infection Onset Date Last Indicated Resolved Time MRSAComment: Positive 02/17/11 and 09/22/12 11/05/2018 019 Negatives 05/03/14 (HE), 12/01/14 (HE) documented as of this encounter Care Teams Decorating Inspector Relationship Specialty Start Date End Date Kehinde Portillofield PCP - General 05/12/[address] [place] [address] documented as of this encounter
--- OUTSIDE RECORDS SUMMARY | 2022-08-14 11:14 | XMS_ITS | Encounter Summary ---
:1940 Author Organization [facility] Address [address] [place] [address] Care Team Providers Name Role Phone Unavailable Primary Care Provider Unavailable Encounter Details Date Type Department Care Team Description 05/07/2022 Orders Only [facility] f Denilson Quinones MD [address] [place] [address] [place], [place] [phone] (Wo rk) Social History Tobacco Use [...] BLOOD ORDERABLES Performing Organization Address City/[facility] Code Phon e Number APS SPECTRA [facility] GFR (05/07/2022) P athologist Signature eGFR CKD-EPI CR 30 mL/min APS SPECTRA 2020 [facility] Comment: [facility] has implemented the recommended eGFR calculation that [...] 05/08/2022 Unless otherwise specified, test(s) performed at: [facility], [address] [place] [address], [place] [address] [facility] COMMUNICATIONS ADMINISTRATOR: Raheem Malik M.D., Ph.D For any questions, please call customer service at FREQUENCY:OTHER Resulting Agency Comment Specimen source: Serum Denilson Holly MD LAB [id number] NSOLICITED RESULTS Performing Organization Address City/[facility] Code Phon e [...] 05/08/2022 Unless otherwise specified, test(s) performed at: [facility], [address] [place] [address], [place] [address] [place] COMMUNICATIONS ADMINISTRATOR: Raheem Malik M.D., Ph.D For any questions, please call customer service at FREQUENCY:OTHER Resulting Agency Comment Specimen source: Blood Denilson Holly MD LAB BLOOD ORDERABLES Performing Organization Address City/State/ZIP Code Phon e Number APS SPECTRA [facility] documented in this encounter Visit Diagnoses Not on filedocumented in this encounter
--- OUTSIDE RECORDS SUMMARY | 2022-08-14 11:14 | XMS_ITS | Encounter Summary ---
:1940 Author Organization [place] Address [address] [place] [address] Care Team Providers Name Role Phone [facility], [facility] Primary Care Provider [phone] Reason for Visit Reason Onset Date Comments Forms 06/30/2019 Encounter Details Date Type Department Care Team Description 06/30/2019 Telephone [facility] Jon White, Forms [phone] [place] [address] (Wo rk) Social History Tobacco [...] back and records faxed to them at [phone].Desire De Oliveira RN Telephone Encounter - Mallory Montgomery RN - 06/30/2019 1:04 PM CDT Flor over at [facility] called requesting patient records from his [...] frustrated by the situation. Faxed form to [facility]. Flor voiced understanding. JOSE [facility] [phone] documented in this encounter Plan of Treatment Not on filedocumented as of this encounter Visit Diagnoses Not on filedocumented in this encounter Additional Health Concerns Infection Onset Date Last Indicated Resolved Time MRSAComment: Positive 02/17/11 and 09/22/12 11/05/2018 019 Negatives 05/03/14 (HE), 12/01/14 (HE) documented as of this encounter Care Teams Specialty Finishing Utility Person Relationship Specialty Start Date End Date [facility] PCP - General 05/12/[address] [place] [address] documented as of this encounter
--- OUTSIDE RECORDS SUMMARY | 2022-08-14 11:14 | XMS_ITS | Encounter Summary ---
:1940 Author Organization [facility] Address [address] [place] [address] Care Team Providers Name Role Phone Unavailable Primary Care Provider Unavailable Encounter Details Date Type Department Care Team Description 04/23/2022 Orders Only [facility] O f Denilson Quinones MD [address] [place] [address] [place], [place] [phone] (Wo rk) Social History Tobacco Use [...] and its performa nce characteristics determined by [facility]. It has not been cleared or approved by the FDA. The laboratory is regulated under CLIA a s qualified to perform high complexity testing. This test is used fo r clinical purposes. It should not be regarded as investigational or fo r research. Test performed at [facility], [address] [place] [address]. Telephone . [facility] or: Henok Correa MD. Specimen (Source) Anatomical Collection Method Collection Time Re ceived Time Location / / Volume Laterality 04/23/2022 04/25/2022 7:04 PM CDT Narrative APS SPECTRA [facility] - 04/27/2022 Unless otherwise specified, test(s) performed at: [facility], [address] [place] [address], [place] [address] LEAD JAVASCRIPT DEVELOPER: Raheem Malik M.D., Ph.D For any [...] for the general public, refer to MMWR [facility] 2004/Vol.54 (No. 16); -, and for healthcare [...] 04/26/2022 Unless otherwise specified, test(s) performed at: [facility], [address] [place] [address], [place] [address] LEAD JAVASCRIPT DEVELOPER: Raheem Malik M.D., Ph.D For any [...] 04/25/2022 Unless otherwise specified, test(s) performed at: [facility], [address] [place] [address], [place] [address] LEAD JAVASCRIPT DEVELOPER: Raheem Malik M.D., Ph.D For any [...] 04/25/2022 Unless otherwise specified, test(s) performed at: [facility], [address] [place] [address] gdieon [facility] [place] [address] LEAD JAVASCRIPT DEVELOPER: Raheem Malik M.D., Ph.D For any [...] 04/25/2022 Unless otherwise specified, test(s) performed at: [facility], [address] [place] [address] [facility] [place] [address] LEAD JAVASCRIPT DEVELOPER: Raheem Malik M.D., Ph.D For any questions, please call customer service at FREQUENCY:MONTHLY Resulting Agency Comment Specimen source: Serum Denilson Holly MD LAB BLOOD ORDERABLES Performing Organization Address City/State/ZIP Code Phon e Number APS SPECTRA [facility] documented in this encounter Visit Diagnoses Not on filedocumented in this encounter
--- OUTSIDE RECORDS SUMMARY | 2022-08-14 11:14 | XMS_ITS | Encounter Summary ---
:1940 Author Organization [facility] Address [address] [place] [address] Care Team Providers Name Role Phone Clinic, [facility] Primary Care Provider [phone] Reason for Visit Reason Onset Date Comments Path Results 06/02/2019 Encounter Details Date Type Department Care Team Description 06/02/2019 Telephone [facility] Jon White, Path Results [phone] [place] [address] (Wo rk) Social History Tobacco [...] : MOHS Surgery with Dr. Jon White, Mash Filter Press Operator to remove skin cancers. Thank you for allowing me to be involved in your health care and for choosing [facility]. If you have any questions or concerns please feel free to contact me at . Sincerely, Dr. Fernando White Telephone Encounter - Mallory Montgomery RN - 06/22/2019 9:06 AM CDT Called and LM for patient to call back in regards to scheduling x3 mohs appointments. LENA Lockwood [facility] [phone] Telephone Encounter - Mallory Montgomery RN - 06/17/2019 11:11 AM CDT Called and LM for patient to call back in regards to scheduling x3 mohs appointments. LENA Lockwood [facility] [phone] Telephone Encounter - Mallory Montgomery RN - 06/14/2019 10:15 AM CDT Called and LM for patient to call back in regards to scheduling x3 mohs appointments. LENA Lockwood [facility] [phone] Telephone Encounter - Mallory Montgomery RN - 06/13/2019 1:05 PM CDT Called and LM for patient to call back in regards to scheduling x3 mohs appointments. [facility] [phone] Telephone Encounter - Mallory Montgomery RN - 06/06/2019 4:22 PM CDT Called and spoke to patient. Educated patient on biopsy results- BCC x3. Educated patient on BCC andmohs. Patient stated his is currently in the hospital so he cannot schedule any appointments atthis time. Patient asked that I call him early next week. Patient voiced understanding. ERMA LockwoodLaxmi [facility] [phone] Telephone Encounter - Ryan Grady - 06/06/2019 3:44 PM CDT Please call patient on cell at [phone]. Telephone Encounter - Mallory Montgomery RN - 06/06/2019 8:40 AM CDT Called and LM for patient to call back in regards to biopsy results x3. L.LENA Montgomery [facility] [phone] Telephone Encounter - Mallory Montgomery RN - 06/03/2019 3:44 PM CDT Called and LM for patient to call back in regards to biopsy results x3. L.ERMA MontgomeryLaxmi [facility] [phone] Telephone Encounter - Mallory Montgomery RN - [...] documented as of this encounter Care Teams Glass Vial Filler Relationship Specialty Start Date End Date [place], [facility] Countypepe PortilloGalt PCP - General 05/12/[address] [place] [address] documented as of this encounter
--- OUTSIDE RECORDS SUMMARY | 2022-08-14 11:14 | XMS_ITS | Encounter Summary ---
:1940 Author Organization [facility] Address [address] [place] [address] Care Team Providers Name Role Phone Unavailable Primary Care Provider Unavailable Encounter Details Date Type Department Care Team Description 04/16/2022 Orders Only [facility] Denilson Quinones MD [address] [place] [address] [place], [place] [phone] (Wo rk) Social History Tobacco Use [...] and its performa nce characteristics determined by [facility]. It has not been cleared or approved [...] 04/17/2022 Unless otherwise specified, test(s) performed at: [facility], [address] [place] [address] [employer] MANAGER: Henok Correa M.D. For any questions, please call customer service at FREQUENCY:MONTHLY Resulting Agency Comment Specimen source: Serum Denilson Holly MD LAB BLOOD ORDERABLES Performing Organization Address City/[facility] Code Phon [...] above test result was obtained using Siemens VOSS Solutionsaur XP chemiluminescent method. Results obtaine d with different assay methods or kits cannot be used interchangeably. Specimen (Source) Anatomical Collection Method Collection Time Re ceived Time Location / / Volume Laterality 04/16/2022 04/17/2022 9:14 AM CDT Narrative APS SPECTRA [facility] - 04/17/2022 Unless otherwise specified, test(s) performed at: [facility], [address] [place] [address] [employer] MANAGER: Henok Correa M.D. For any questions, please call customer service at FREQUENCY:MONTHLY Resulting Agency Comment Specimen source: Serum Denilson Holly MD LAB BLOOD ORDERABLES Performing Organization Address City/[facility] Code Phon e Number APS SPECTRA [facility] (ABNORMAL) [facility] Chemistry (04/16/2022) P athologist Signature PTH 108 (H) 16 - 80 APS SPECTRA pg/mL [facility] Specimen (Source) Anatomical Collection Method Collection Time Re ceived Time Location / / Volume Laterality 04/16/2022 04/17/2022 9:16 AM CDT Narrative APS SPECTRA [facility] - 04/17/2022 Unless otherwise specified, test(s) performed at: [facility], [address] [place] [address] [employer] MANAGER: Henok Correa M.D. For any questions, please call customer service at FREQUENCY:MONTHLY Resulting Agency Comment Specimen source: Plasma Denilson Holly MD LAB BLOOD ORDERABLES Performing Organization Address City/[facility] Code Phon [...] MD LAB BLOOD ORDERABLES Performing Organization Address City/[facility]/ZIP Code Phon e Number APS SPECTRA [facility] POST CHEMISTRY (04/16/2022) P athologist Signature BUN Post 18 6 - 19 APS SPECTRA Dialysis mg/dL [facility] Specimen (Source) Anatomical Collection Method Collection Time Re ceived Time Location / / Volume Laterality 04/16/2022 04/17/2022 9:08 AM CDT Narrative APS SPECTRA [facility] - 04/17/2022 Unless otherwise specified, test(s) performed at: [facility], [address] [place] [address] [employer] MANAGER: Henok Correa M.D. For any questions, please [...] 04/17/2022 Unless otherwise specified, test(s) performed at: [facility], [address] [place], [place] [phone] [employer] MANAGER: Henok Correa M.D. For any questions, please call customer service at FREQUENCY:MONTHLY Resulting Agency Comment Specimen source: Serum Denilson Holly MD LAB BLOOD ORDERABLES Performing Organization Address City/State/ZIP Code Phon e Number APS SPECTRA [facility] GFR (04/16/2022) P athologist Signature eGFR CKD-EPI CR 28 mL/min APS [facility]PECT[facility] 2020 [facility] Comment: [facility] has implemented the recommended eGFR calculation that [...] 04/17/2022 Unless otherwise specified, test(s) performed at: [facility], [address] [place] [address] [employer] MANAGER: Henok Correa M.D. For any questions, please call customer service at FREQUENCY:MONTHLY Resulting Agency Comment Specimen source: Serum Denilson Holly MD LAB [id number] NSOLICITED RESULTS Performing Organization Address City/State/ZIP Code Phon e Number APS SPECTRA [facility] (ABNORMAL) HEMATOLOGY (04/16/2022) [facility] gist Method Time Signature [...] 04/17/2022 Unless otherwise specified, test(s) performed at: [facility], [address] [place] [address] [employer] MANAGER: Henok Correa M.D. For any questions, please call customer service at FREQUENCY:MONTHLY Resulting Agency Comment Specimen source: Blood Denilson Holly MD LAB BLOOD ORDERABLES Performing Organization Address City/State/ZIP Code Phon e Number APS SPECTRA [facility] documented in this encounter Visit Diagnoses Not on filedocumented in this encounter
--- OUTSIDE RECORDS SUMMARY | 2022-08-14 11:14 | XMS_ITS | Encounter Summary ---
:1940 Author Organization [place] Address [address] [place] [address] Care Team Providers Name Role Phone [facility] Primary Care Provider [phone] Encounter Details Date Type Department Care Team [...] documented as of this encounter Care Teams Wire Spring Relay Adjuster Relationship Specialty Start Date End Date [facility] PCP - General 05/12/[address] [place] [address] documented as of this encounter
--- OUTSIDE RECORDS SUMMARY | 2022-08-14 11:14 | XMS_ITS | Encounter Summary ---
:1940 Author Organization [place] Address [address] [facility] [place] [address] Care Team Providers Name Role Phone [facility], [facility] Primary Care Provider [phone] Gallito Gonzalez MD Unavailable Encounter Details Date Type Department Care Team Description 11/04/2021 Telephone [facility] Gallito Gonzalez, Clinic Tram [facility] [address] [place] [address] [place] [id number] (Wo rk) Social History Tobacco Use Types [...] Gonzalez and pt notified. SHASTA Sotomayor, JOSE [facility] [place] Office: [phone] Telephone Encounter - Ro Taylor RN - 11/26/2021 1:[address] Gonzalez, Dr. Orosco was notified. Awaiting further direction from Dr. Gonzalez upon their discussion and to ensure pts daughter is notified. SHASTA Sotomayor, JOSE [facility] [place] Office: [phone] ERY WORKER Telephone Encounter - Ro Taylor RN - 11/04/2021 4:56 PM CST JAMES 09/23/[address] Gonzalez I will get in touch with the patient's daughter after I discussed the case with Dr. Orosco Routing to Dr. Gonzalez for update on this/plan and verification of pts daughter contacted. SHASTA Sotomayor, RN [facility] [place] Office: [phone] ERY WORKER documented in this encounter Plan of Treatment Not on filedocumented as of this encounter Visit Diagnoses Not on filedocumented in this encounter Additional Health Concerns Infection Onset Date Last Indicated Resolved Time MRSAComment: Positive 02/17/11 and 09/22/12 11/05/2018 019 Negatives 05/03/14 (HE), 12/01/14 (HE) documented as of this encounter Care Teams Chief Projectionist Relationship Specialty Start Date End Date [facility], [facility] PCP - General 05/12/[address] [place] [address] Gallito Gonzalez MD Assigned [facility] Vascular 09/29/21 [address] Provider [place] [id number] documented as of this encounter
--- OUTSIDE RECORDS SUMMARY | 2022-08-14 11:15 | XMS_ITS | Encounter Summary ---
:1940 Author Organization [place] Address [address] [facility] [place] [address] Care Team Providers Name Role Phone [facility], [facility] Primary Care Provider [phone] Reason for Referral Diagnostic Imaging CT Scan (Routine) - Closed Specialty Diagnoses / Procedures Referred By Contact Refer red To Contact Radiology. 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 Butch Brown MD Rh Ct Scan [facility] Procedures CT Chest Abdomen Pelvis w/o Contrast [address] [place] [address] [place] [address] [place] [address] [place] [address] Phone: Fax: Referral ID Status Reason Start Date Expiration Date Visits Requ ested Visits Authorized [id number] Closed 05/17/2019 05/16/2020 1 1 Encounter Details Date Type Department Care Team Description 05/17/2019 [facility] Only [facility] Butch Brown Abdominal aortic Vascular Clinic Félix Jay MD aneurysm (AAA) without [address] ru pture (H) (Primary [address] Dx) [place] [address] [place] [address] [phone] Social History Tobacco Use Types Packs/Day Years [...] Abdomen Pelvis w/o Contrast (11/09/2019 11:25 AM SCHEDULER CONVEYOR) Anatomical Region Laterality Modality Abdomen/Pelvis, SUBRAD CT BODY, UMP CT CHEST, UMP CT Computed Tomography ABDOMEN PELVIS, Chest, RAD CT Specimen (Source) Anatomical Location Collection Method / Collectio n Time Received Time / Laterality Volume Impressions 11/09/2019 3:17 PM SCHEDULER CONVEYOR IMPRESSION: 1. 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 2. The aneurysm sac in the distal thorac ic aorta and an infrarenal abdominal aortic aneurysm have increased slightly in size since the previous exam. 3. Moderate age-indeterminate anterior c ompression of the T7 vertebral body is new since the previous exam. JON NICHOLS MD Narrative 11/09/2019 3:[address] CHEST, ABDOMEN AND PELVIS WITHOUT CONTRAST [...] documented as of this encounter Care Teams Advertising Rep Relationship Specialty Start Date End Date [place], [facility] PCP - General 05/12/[address] [place] [address] documented as of this encounter
--- OUTSIDE RECORDS SUMMARY | 2022-08-14 11:15 | XMS_ITS | Encounter Summary ---
:1940 Author Organization [place] Address [address] [facility] [place] [address] Care Team Providers Name Role Phone Clinic, [facility] Primary Care Provider [phone] Reason for Visit Reason Onset Date Comments Clinic Care Coordination - Initial 05/17/2019 CT sc an Encounter Details Date Type Department Care Team Description 05/17/2019 Telephone [facility] Butch Brown Clinic Car e Coordination Vascular Clinic Félix Jay MD - Initial (CT scan) [address] [place] [address] [place] [id number] Social History Tobacco Use Types Packs/Day Years [...] documented as of this encounter Care Teams Furnace Tender Relationship Specialty Start Date End Date [facility] PCP - General 05/12/[address] [place] [address] documented as of this encounter
--- OUTSIDE RECORDS SUMMARY | 2022-08-14 11:15 | XMS_ITS | Encounter Summary ---
:1940 Author Organization [facility] Address [address] [place] [address]. [place] [address] Care Team Providers Name Role Phone Clinic, [facility] Primary Care Provider [phone] Reason for Visit Reason Comments Skin Check FSE Encounter Details Date Type Department Care Team Description 06/02/2019 Office Visit [facility] Jon White of skin cancer (Primary Dx); Clinic [place] MD Aubrey L[facility]; [facility] [address] Seborrheic keratosis; [address] [address] Angioma of skin; [place], [place] [phone] Dermal nevus ; [phone] (Work) Basal cell carcinoma (BCC) of anterior c hest; [phone] Basal wilton l carcinoma (BCC) of sideburn [...] CDT Wound Care Instructions FOR SUPERFICIAL WOUNDS [facility] [phone] [facility] [phone] AFTER 24 HOURS YOU SHOULD REMOVE THE [...] file Gets together: Not on file Attends jainism service: Not on file Active member of club or organization: Not on file Attends meetings of clubs or organizations: Not on file Relationship status: Not on file ??? Intimate partner violence: Fear of current or ex partner: Not on file Emotionally abused: Not on file Physically abused: Not on file Forced sexual activity: Not on file Other Topics Concern ??? Parent/sibling w/ CABG, IA or angioplasty before 65F 55M? Not Asked [...] 87.5 kg (193 lb). . Ly.JOSE Montgomery-BSN-PHN [facility] [phone] documented in this encounter Plan of Treatment [...] documented as of this encounter Care Teams Program Evaluator Relationship Specialty Start Date End Date Kehinde Portillofield PCP - General 05/12/[address] [place] [address] documented as of this encounter
--- OUTSIDE RECORDS SUMMARY | 2022-08-14 11:15 | XMS_ITS | Encounter Summary ---
:1940 Author Organization [place] Address [facility] [place] [address] Care Team Providers Name Role Phone Clinic, [facility] Primary Care Provider [phone] Encounter Details Date Type Department Care Team Description 11/05/2018 Anesthesia Event [facility] Zakia Santoyo, Interventional Radio logy [address] [place] [address] ANESTHESIOLOGY [phone] [place] [address] Anesthesia Record Procedure Summary Procedure Name Responsible [...] on filedocumented in this encounter Care Teams District Administrative Assistant Relationship Specialty Start Date End Date Kehinde Portillo PCP - General 05/12/[address] [place] [address] documented as of this encounter
--- OUTSIDE RECORDS SUMMARY | 2022-08-14 11:15 | XMS_ITS | Encounter Summary ---
:1940 Author Organization [place] Address [address] [place] [address] Care Team Providers Name Role Phone Kehinde Portillo Primary Care Provider [phone] Encounter Details Date Type Department Care Team [...] as of this encounter Care Teams Manager Reliability Relationship Specialty Start Date End Date [facility], Kehinde Santos PCP - General 05/12/[address] [place] [address] documented as of this encounter
--- OUTSIDE RECORDS SUMMARY | 2022-08-14 11:15 | XMS_ITS | Encounter Summary ---
:1940 Author Organization [place] Address [address] [facility] [place] [address] Care Team Providers Name Role Phone [facility], [facility] Primary Care Provider [phone] Reason for Referral Therapeutic Imaging/IR - Closed Specialty Diagnoses / Procedures Referred By Contact Refer red To Contact Diagnoses Descending thoracic aortic aneurysm Juan Lewis MD Procedures IR Thoracic Endovascular Stent Graft [address] [place] [address] Referral ID Status Reason Start Date Expiration Date Visits Requ ested Visits Authorized [id number] Closed 10/28/2018 10/28/2019 1 1 AVENOUS THERAPY NURSE Reason for Visit Auth/Cert Specialty Diagnoses / Procedures Referred By Contact Refer red To Contact Surgery Diagnoses DESCENDING THORACIC AORTIC ANEURYSM Sh Periop Services Procedures ENDOVASCULAR REPAIR ANEURYSM THORACIC AORTIC [address] [place] [address] Phone: Referral ID Status Reason Start Date Expiration Date Visits Requ ested Visits Authorized [id number] 1 1 Encounter Details Date Type Department Care Team Description 11/05/2018 - Hospital Encounter [facility] Elizabeth Lewis MD [address] [place] [id number] Thoracic aortic aneurysm without rupture (H) (Primary Dx); 11/09/2018 Gallito Sommers MD [address] [place] [id number] Descending thoracic aortic aneurysm (H) Intermediate Care Butch Brown MD [address] [place] [id number] [address] [place] [address] Social [...] Comments Blood Pressure 158/88 11/09/2018 8:28 AM INTRAVENOUS THERAPY NURSE Pulse 100 11/09/2018 5:00 AM INTRAVENOUS THERAPY NURSE Temperature 36.6 ??C (97.9 ??F) 11/09/2018 7:31 AM INTRAVENOUS THERAPY NURSE Respiratory Rate 22 11/09/2018 8:00 AM INTRAVENOUS THERAPY NURSE Oxygen Saturation 93% 11/09/2018 5:00 AM INTRAVENOUS THERAPY NURSE Inhaled Oxygen Concentration - - Weight 87.3 kg (192 lb 7.4 oz) 11/09/2018 6:39 AM INTRAVENOUS THERAPY NURSE Height 167.6 cm (5' 6) 11/05/2018 6:27 AM INTRAVENOUS THERAPY NURSE Body Mass Index 31.06 11/05/2018 6:27 AM INTRAVENOUS THERAPY NURSE documented in this encounter Discharge Summaries Bessy Mccray MD - 11/09/2018 10:56 AM CST Physician Discharge Summary Patient ID: Speedy Hendricks [id number] 78 year old 1940 Admit date: 11/05/2018 [...] an oral diet. He was discharged to [facility] on POD#4 in stable condition. [...] to. Signed: Bessy Mccray 11/09/2018 10:56 AM AVENOUS THERAPY NURSE Associated attestation - Juan Lewis MD - 11/11/2018 3:10 PM INTRAVENOUS THERAPY NURSE Physician Attestation I, Juan Lewis, have reviewed [...] Traylor RN - 11/09/2018 11:47 AM CST AVENOUS THERAPY NURSE AttachmentsThe following attachments cannot be sent through Care Everywhere.(S) TREATING A THORACIC AORTIC ANEURYSM (TAA): ENDOVASCULAR GRAFT (KOSOVAN) documented in this encounter Medications at Time [...] home with family via car.All questions answered. AVENOUS THERAPY NURSE Gurwinder Godoy MD - 11/09/2018 12:02 PM CST [facility] Vascular Medicine Progress Note Date of Service (when I saw the patient): 11/09/2018 Physician Supervisory Attestation: I have reviewed and discussed with the physician bindery assistant their history, physical and plan and [...] Discussed with vascular surgery service. Gurwinder Godoy MD,[facility] Vascular Medicine service 11/09/2018 Assessment & [...] Rate: 93 Resp: 22 SpO2: 93 % [id number]: None (Room air) Vitals: 11/06/18 0211 11/07/18 [...] = values in this interval not displayed. AVENOUS THERAPY NURSE Bessy Mccray MD - 11/09/2018 7:36 AM [...] Bessy Martinez MD Vascular Surgery Fellow Pager AVENOUS THERAPY NURSE Associated attestation - Butch Brown MD - 11/16/2018 9:50 AM INTRAVENOUS THERAPY NURSE I was involved with the assessment and plan, and I agree with the findings and plan of care as documented in the fellow's note. MD Wilfredo Castillo Carley, RN - 11/08/2018 6:35 PM CST Pt arrived to station 33 @ 1820 AVENOUS THERAPY NURSE Aura Crooks RN - 11/08/2018 5:05 PM CST Pt had drained removed this AM. Draining moderate amount- MDA aware. SR. BP wnl- gave hydralazine x1prn. Chapman to be removed prior to transfer. Lines out and hemostasis achieved. Up to chair- tolerated well, SBA. Frequent neuros- wnl. Will call report to [facility] and will transfer at . AVENOUS THERAPY NURSE Dimas Chapman MD - 11/08/2018 12:41 PM CST [facility] Vascular Medicine Progress Note [...] -- AST 19 -- -- -- -- AVENOUS THERAPY NURSE Bessy Mccray MD - 11/08/2018 8:18 AM [...] Bessy Martinez MD Vascular Surgery Fellow Pager AVENOUS THERAPY NURSE Associated attestation - Butch Brown MD - 11/16/2018 3:00 PM INTRAVENOUS THERAPY NURSE I was involved with the assessment and [...] please contact primary service first. Kaleb Rodriguez AVENOUS THERAPY NURSE Kristy Castañeda RN - 11/08/2018 6:50 AM [...] drain tubing following unclamping. [place]ts [place] [id number] down from 100s yesterday. At this time, [...] Christina Burrell MD Vascular Surgery Fellow Pgr AVENOUS THERAPY NURSE Bishop Tran MD - 11/07/2018 11:55 AM CST Chemical Processing Equipment Repairer: S: Mild groin pain this morning, but [...] Dr. Staley of vascular medicine at bedside. Chemical Processing Equipment Repairer service will sign off for now. Please re-consult as needed. AVENOUS THERAPY NURSE Gurwinder Godoy MD - 11/07/2018 9:09 AM CST [facility] Vascular Medicine Progress Note [...] If any change in neuro status contact [facility] surgery first and consider neurocritical care [...] good Reviewed last night events, discussed with Chemical Processing Equipment Repairer and ICU nursing staff this am. Patients [...] . Avoid nephrotoxic meds. ?? Gurwinder Godoy MD,[facility] Vascular Medicine Interval History Reviewed last [...] to keep SBP <160 and MAP >80. AVENOUS THERAPY NURSE Gurwinder Godoy MD - 11/06/2018 12:00 PM CST [facility] Vascular Medicine Progress Note [...] . Avoid nephrotoxic meds. ?? Gurwinder Godoy MD,[facility] Vascular Medicine Interval History Reviewed last [...] 7.8* 8.6 -- GLC 115* 121* -- AVENOUS THERAPY NURSE Millie Handley APRN FUEL DISTRIBUTION SYSTEM OPERATOR - 11/06/2018 11:55 AM CST Critical [...] Total critical care time today 35 min. AVENOUS THERAPY NURSE Associated attestation - Bishop Tran MD - 11/12/2018 10:50 AM INTRAVENOUS THERAPY NURSE Physician Attestation I, Bishop Tran, have reviewed [...] sufficient urine. Continue plan as documented in RUBBER BLOCK LAYER note. The patient does not seem to [...] his medication list prior to surgery Primary pharmacy.[place] Additional medication history information not noted on WAFER FABRICATOR med list :None Time spent in this [...] Bedtime 11/04/2018 at 2200 Yes Reported, Patient AVENOUS THERAPY NURSE documented in this encounter Procedure Notes Missael [...] management per anethesia/vasc surg Missael Garcia MD [phone] AVENOUS THERAPY NURSE documented in this encounter Consult Notes Kaleb Rodriguez NP - 11/05/2018 5:14 PM CSTAssociated Order(s): CABLE TELEVISION LINE TECHNICIAN IP CONSULT [facility] Consult Critical Care Service [...] Code Status Full Code Primary Care Physician [facility] Chief Complaint S/p TEVAR History [...] IR Lumbar Drain Placement w Fluoro Narrative [facility] INTERVENTIONAL NEURORADIOLOGY PROCEDURAL NOTE FLUOROSCOPICALLY [...] CPT codes included for physician reference only: 29623/22813 MISSAEL GARCIA MD Glucose by meter Result Value Ref Range Glucose 124 (H) 70 - 99 mg/dL AVENOUS THERAPY NURSE Associated attestation - Olive Bello MD - 11/05/2018 10:58 PM INTRAVENOUS THERAPY NURSE ICU STAFF: I have discussed Mr. Hendricks's [...] management per vascular surgery. Olive Bello MD #[id number] 11/05/18 Bill as Advanced Practice Provider only. Gurwinder Godoy MD - 11/05/2018 1:40 PM CST [facility] Vascular Medicine Consultation Date of Admission: 11/05/2018 Date of Consult (When I saw the patient): 11/05/18 Physician Supervisory Attestation: I have reviewed and discussed with the physician bindery assistant their history, physical and plan and [...] consult Copy to Dr. Debbie Godoy MD ,[facility] Vascular Medicine 11/05/2018 Assessment & Plan [...] 78 year old male Primary Care Physician [facility] History of Present Illness [...] Labs Lab Test 11/05/18 0655 A1C 5.2 AVENOUS THERAPY NURSE documented in this encounter Nursing Notes Isis Rivera, JOSE - 11/05/2018 8:40 AM CST Noted swelling left ankle AVENOUS THERAPY NURSE documented in this encounter Miscellaneous Notes Plan [...] sites soft, bruised, CMS intact. Voiding okay. AVENOUS THERAPY NURSE Plan of Care - Misty Villalobos RN - 11/08/2018 7:10 PM CST A/O x4. AVSS on RA. Tele NSR. Hydralazine given x1. Up SBA. Neuros intact. CMS intact. Groin sites, steri strips. Back site, moist drainage. Pulses, palpable, +2. Regular diet. Chapman removed at 1740, Due to void. AVENOUS THERAPY NURSE Provider Notification - Aura Crooks RN - 11/08/2018 11:37 AM CST MD NOTIFICATION Person Notified: MDA Notified Person's Name: Yeimi Notification Date/Time: 11/08/2017 1135 Notification Interaction: Paged physician Purpose of Notification: Pt remains to have drainage from lumbar drain site. Orders Received: MDA to come assess pt. AVENOUS THERAPY NURSE Plan of Care - Kristy Castañeda RN [...] access readiness for lumbar drain removal today. AVENOUS THERAPY NURSE Provider Notification - Kristy Castañeda RN - [...] assess pulling the drain. Kristy Castañeda RN AVENOUS THERAPY NURSE Plan of Care - Aura Crooks RN - 11/07/2018 6:17 PM CST Neuro: LUCAS- strength 5/5. PERRL. Complains of soreness in groin/hips from moving them too much. Ptup in chair for a hour and tolerated well. Ok'd with Anesthesia MD, [place], to get up in chair forno more [...] some blood in tubing- Anesthesia MD aware. AVENOUS THERAPY NURSE Plan of Care - Danette Peck RN - 11/07/2018 1:12 PM CST [id number] Continued with numbness bilateral top of thighs. [...] and dtr in room when Drs here. AVENOUS THERAPY NURSE Provider Notification - Ramiro Lozano RN - 11/07/2018 6:17 AM CST Paged vascular surgery fellow Ashanti regarding new numbness to anterior thighs. CSF has been drained, will begin 500ml bolus unless directed otherwise. AVENOUS THERAPY NURSE Plan of Care - Ramiro Lozano RN [...] clamped now. Daughter Raquel updated this morning. AVENOUS THERAPY NURSE Provider Notification - Ramiro Lozano RN - 11/07/2018 5:[address] Wang regarding new leg pain and ICP increase. Opening drain for 15ml CSF over 1 hr per order. AVENOUS THERAPY NURSE Plan of Care - Danette Peck RN - 11/06/2018 4:34 PM CST [id number] Neuro checks remain intact. Able to move [...] be retested for MRSA per infection control. AVENOUS THERAPY NURSE Plan of Care - Ramiro Lozano RN [...] this shift. Daughter Raquel updated this morning. AVENOUS THERAPY NURSE Plan of Care - Danette Peck RN - 11/05/2018 9:43 PM CST [id number] Neuro: intact. Able to move hips slightly [...] by physicians. Care transferred to next nurse. AVENOUS THERAPY NURSE Provider Notification - Ramiro Lozano RN - 11/05/2018 7:46 PM CST Notified field representative/health education regarding failure to meet MAP goal of 80, new orders received. AVENOUS THERAPY NURSE Op Note - Butch Brown MD - [...] descending aortic angiogram SURGEON: Butch Brown MD GARMENT MANUFACTURER: Kannan Morse MD; Bessy Mas MD - [...] then able to upsized to a 6 Honduran sheath over a Bentson wire.The patient was [...] femoral artery and upsized to an 11 [place]uran sheath. We then able to insert JULIANE [...] was removed and backfilled with a 16 [place]uran dry seal on the left.At this point [...] superficial femoral artery access which was 6 [place]uran sheath with an Angio-Seal closure device performed [...] the drain. Butch Brown MD Vascular Surgery AVENOUS THERAPY NURSE Brief Op Note - Bessy Mccray MD - 11/05/2018 12:29 PM CST [facility] Brief Operative Note Pre-operative [...] Palp DP bilaterally Complications: None. Implants: None. AVENOUS THERAPY NURSE Associated attestation - Butch Brown MD - 11/05/2018 1:09 PM INTRAVENOUS THERAPY NURSE Butch Brown MD IR Note - Gwen Rivas RN - 11/05/2018 10:27 AM CST Interventional Radiology Intra-procedural Nursing Note Patient Name: Speedy Hendricks Today's Date: November 05, 2018 Start Time: 0850 End of procedure time: 904 Procedure: lumbar drain placement Report given to: Dr. See, anesthesia Time pt departs: 919 Preschool Adviser: n/a Other Notes: patient tolerated well. Drain connected to closed drainage system flushed with preservative free NS per Dr. Haro. 1mg Versed and 50mcg Fentanyl IV given for additional sedation (had received 4mg Versed and 100mcg Fentanyl in pre-op prior to arrival). SR on monitor .VSS. Patient taken back to pre-op bay in stable condition. Gwen Rivas RNplasticator Radiology AVENOUS THERAPY NURSE documented in this encounter Plan of Treatment Not on filedocumented as of this encounter Procedures Procedure Name Priority Date/Time Associated Comments Diagnosis CBC WITH PLATELETS & Routine 11/09/2018 7:41 AM Descending tho racic Results for this DIFFERENTIAL INTRAVENOUS THERAPY NURSE aortic aneurysm (H) procedur e are in the results section. COMPREHENSIVE Routine 11/09/2018 7:41 AM Descending thoracic R esults for this METABOLIC PANEL INTRAVENOUS THERAPY NURSE aortic aneurysm (H) proce dure are in the results section. MAGNESIUM Routine 11/08/2018 3:40 AM Descending thoracic Re sults for this INTRAVENOUS THERAPY NURSE aortic aneurysm (H) procedur e are in the results section. COMPREHENSIVE Routine 11/08/2018 3:40 AM Descending thoracic R esults for this METABOLIC PANEL INTRAVENOUS THERAPY NURSE aortic aneurysm (H) proce dure are in the results section. CBC WITH PLATELETS Routine 11/08/2018 3:40 AM Descending thora cic Results for this INTRAVENOUS THERAPY NURSE aortic aneurysm (H) procedur e are in the results section. CBC WITH PLATELETS STAT 11/07/2018 3:00 PM Descending thora cic Results for this INTRAVENOUS THERAPY NURSE aortic aneurysm (H) procedur e are in the results section. CBC WITH PLATELETS & Timed 11/07/2018 9:50 AM Descending tho racic Results for this DIFFERENTIAL INTRAVENOUS THERAPY NURSE aortic aneurysm (H) procedur e are in the results section. MAGNESIUM Routine 11/07/2018 9:50 AM Descending thoracic Re sults for this INTRAVENOUS THERAPY NURSE aortic aneurysm (H) procedur e are in the results section. BASIC METABOLIC PANEL Timed 11/07/2018 9:50 AM Descending th oracic Results for this INTRAVENOUS THERAPY NURSE aortic aneurysm (H) procedur e are in the results section. GLUCOSE BY METER Routine 11/07/2018 7:44 AM Descending thoraci c Results for this INTRAVENOUS THERAPY NURSE aortic aneurysm (H) procedur e are in the results section. GLUCOSE BY METER Routine 11/07/2018 3:49 AM Descending thoraci c Results for this INTRAVENOUS THERAPY NURSE aortic aneurysm (H) procedur e are in the results section. GLUCOSE BY METER Routine 11/07/2018 12:08 Descending thoracic Results for this AM INTRAVENOUS THERAPY NURSE aortic aneurysm (H) procedur e are in the results section. GLUCOSE BY METER Routine 11/06/2018 7:53 PM Descending thoraci c Results for this INTRAVENOUS THERAPY NURSE aortic aneurysm (H) procedur e are in the results section. GLUCOSE BY METER Routine 11/06/2018 11:02 Descending thoracic Results for this AM INTRAVENOUS THERAPY NURSE aortic aneurysm (H) procedur e are in the results section. GLUCOSE BY METER Routine 11/06/2018 7:38 AM Descending thoraci c Results for this INTRAVENOUS THERAPY NURSE aortic aneurysm (H) procedur e are in the results section. LACTIC ACID WHOLE Routine 11/06/2018 4:15 AM Descending thorac ic Results for this BLOOD INTRAVENOUS THERAPY NURSE aortic aneurysm (H) procedur e are in the results section. BASIC METABOLIC PANEL Routine 11/06/2018 4:15 AM Descending th oracic Results for this INTRAVENOUS THERAPY NURSE aortic aneurysm (H) procedur e are in the results section. CBC WITH PLATELETS Routine 11/06/2018 4:15 AM Descending thora cic Results for this INTRAVENOUS THERAPY NURSE aortic aneurysm (H) procedur e are in the results section. GLUCOSE BY METER Routine 11/06/2018 1:12 AM Descending thoraci c Results for this INTRAVENOUS THERAPY NURSE aortic aneurysm (H) procedur e are in the results section. MRSA MSSA PCR, NASAL STAT 11/05/2018 11:41 Descending thora cic Results for this SWAB PM INTRAVENOUS THERAPY NURSE aortic aneurysm (H) procedur e are in the results section. GLUCOSE BY METER Routine 11/05/2018 8:16 PM Descending thoraci c Results for this INTRAVENOUS THERAPY NURSE aortic aneurysm (H) procedur e are in the results section. GLUCOSE BY METER Routine 11/05/2018 4:39 PM Descending thoraci c Results for this INTRAVENOUS THERAPY NURSE aortic aneurysm (H) procedur e are in the results section. INR STAT 11/05/2018 4:35 PM Descending thoracic Re sults for this INTRAVENOUS THERAPY NURSE aortic aneurysm (H) procedur e are in the results section. LACTIC ACID WHOLE STAT 11/05/2018 4:35 PM Descending thorac ic Results for this BLOOD INTRAVENOUS THERAPY NURSE aortic aneurysm (H) procedur e are in the results section. BASIC METABOLIC PANEL STAT 11/05/2018 4:35 PM Descending th oracic Results for this INTRAVENOUS THERAPY NURSE aortic aneurysm (H) procedur e are in the results section. CBC WITH PLATELETS STAT 11/05/2018 4:35 PM Descending thora cic Results for this INTRAVENOUS THERAPY NURSE aortic aneurysm (H) procedur e are in the results section. IR THORACIC Routine 11/05/2018 12:09 Descending thoracic Resu lts for this ENDOVASCULAR STENT PM INTRAVENOUS THERAPY NURSE aortic aneurysm (H) pr ocedure are in GRAFT the results section. REPAIR, ANEURYSM, 11/05/2018 9:35 AM DESCENDING THORAC IC THORACIC AORTIC, INTRAVENOUS THERAPY NURSE AORTIC ANEURYSM ENDOVASCULAR Special Needs BLOOD TRANSFUSION ISSUE (RAR E ANTIBODIES) PT WILL DO A TYPE AND CROSS ON 11/03 JALEEL 10/28 IR LUMBAR DRAIN Routine 11/05/2018 9:10 AM Result s for this PLACEMENT W FLUORO INTRAVENOUS THERAPY NURSE procedure are in the results section. EKG 12-LEAD, TRACING STAT 11/05/2018 6:58 AM R esults for this ONLY INTRAVENOUS THERAPY NURSE procedure are i n the results section. POTASSIUM STAT 11/05/2018 6:55 AM Descending thoracic Re sults for this INTRAVENOUS THERAPY NURSE aortic aneurysm (H) procedur e are in the results section. LIPID PROFILE STAT 11/05/2018 6:55 AM Descending thoracic R esults for this INTRAVENOUS THERAPY NURSE aortic aneurysm (H) procedur e are in the results section. HEMOGLOBIN A1C STAT 11/05/2018 6:55 AM Descending thoracic Results for this INTRAVENOUS THERAPY NURSE aortic aneurysm (H) procedur e are in the results section. CREATININE STAT 11/05/2018 6:55 AM Descending thoracic Re sults for this INTRAVENOUS THERAPY NURSE aortic aneurysm (H) procedur e are in the results section. XR CHEST PORT 1 VIEW STAT 11/05/2018 6:40 AM R esults for this INTRAVENOUS THERAPY NURSE procedure are i n the results section. EKG CARDIAC - HIM 09/24/2018 12:00 AM SCAN INTRAVENOUS THERAPY NURSE documented in this encounter Results (ABNORMAL) CBC with platelets differential (11/09/2018 7:41 AM INTRAVENOUS THERAPY NURSE) Component Value Ref Test Analysis Performed At [facility] gist Range Method Time Signature WBC 9.3 4.0 - 11/09/2018 [facility] 11.0 8:06 AM INTRAVENOUS THERAPY NURSE [address] RBC Count 3.55 (L) 4.4 - 11/09/2018 [facility] 5.9 8:06 AM [place] [id number] Hemoglobin 11.3 (L) 13.3 - 11/09/2018 [facility] 17.7 8:06 AM [facility] Hematocrit 33.7 (L) 40.0 - 11/09/2018 [facility] 53.0 % 8:06 AM [facility] MCV 95 78 - 100 11/09/2018 [facility] fl 8:06 AM [facility] MCH 31.8 26.5 - 11/09/2018 [facility] 33.0 pg 8:06 AM [facility] MCHC 33.5 31.5 - 11/09/2018 [facility] 36.5 8:06 AM [facility] RDW 13.9 10.0 - 11/09/2018 [facility] 15.0 % 8:06 AM [facility] Platelet Count 83 (L) 150 - 11/09/2018 [facility] 450 8:[address] Diff Method Manual 11/09/2018 [facility] Differential 8:31 AM [facility] % Neutrophils 85.0 % 11/09/2018 [facility] 8:31 AM [facility] % Lymphocytes 6.0 % 11/09/2018 [facility] 8:31 AM [facility] % Monocytes 7.0 % 11/09/2018 [facility] 8:31 AM [facility] % Eosinophils 2.0 % 11/09/2018 [facility] 8:31 AM [facility] % Basophils 0.0 % 11/09/2018 [facility] 8:31 AM [facility] Absolute 7.9 1.6 - 11/09/2018 [facility] Neutrophil 8.3 8:[address] Absolute 0.6 (L) 0.8 - 11/09/2018 [facility] Lymphocytes 5.3 8:[address] Absolute 0.7 0.0 - 11/09/2018 [facility] Monocytes 1.3 8:[address] Absolute 0.2 0.0 - 11/09/2018 [facility] Eosinophils 0.7 8:[address] Absolute 0.0 0.0 - 11/09/2018 [facility] Basophils 0.2 8:[address] RBC Morphology Consistent with 11/09/2018 [facility] reported results 8:31 AM [facility] Platelet Automated count 11/09/2018 [facility] Estimate confirmed. 8:31 AM [facility] morphology is normal. Specimen Anatomical Collection Method Collection Time Receive d Time (Source) Location / / Volume Laterality Blood specimen 11/09/2018 7:41 AM 019 7:51 (specimen) INTRAVENOUS THERAPY NURSE AM INTRAVENOUS THERAPY NURSE Dimas Chapman MD LAB - BLOOD ORDERABLES Performing Organization Address City/State/ZIP Code Phon e Number [facility] [address] [address] [facility] [address] [place] [address] [address], [place] [phone] (ABNORMAL) Comprehensive metabolic panel (11/09/2018 7:41 AM INTRAVENOUS THERAPY NURSE) P athologist Signature Sodium 144 133 - 144 11/09/2018 [place] mmol/L 8:11 AM [facility] Potassium 4.0 3.4 - 5.3 11/09/2018 [place] mmol/L 8:11 AM [facility] Chloride 113 (H) 94 - 109 11/09/2018 [place] mmol/L 8:11 AM [facility] Carbon Dioxide 22 20 - 32 11/09/2018 [place] mmol/L 8:17 AM [facility] Anion Gap 9 3 - 14 11/09/2018 [place] mmol/L 8:17 AM [facility] Glucose 94 70 - 99 11/09/2018 [place] mg/dL 8:17 AM [facility] Urea Nitrogen 21 7 - 30 11/09/2018 [place] mg/dL 8:17 AM [facility] Creatinine 1.24 0.66 - 11/09/2018 [place] 1.25 mg/dL 8:17 AM [facility] GFR Estimate 56 (L) >60 11/09/2018 [place] mL/min/{1. 8:17 AM [facility] 73_m2} HOSPITAL Comment: Non GFR Calc Starting 10/05/2018, serum creatinine ba sed estimated GFR (eGFR) will be calculated using the Chronic Kidney Dise [facility] Epidemiology Collaboration (CKD-EPI) equation. GFR Estimate If 65 >60 mL/min/{1.73_m2} 11/09/2018 8: 17 AM [facility] Comment: GFR Calc Starting 10/05/2018, serum creatinine ba sed estimated GFR (eGFR) will be calculated using the Chronic Kidney Dise [facility] Epidemiology Collaboration (CKD-EPI) equation. Calcium 8.4 (L) 8.5 - 10.1 11/09/2018 8:17 AM [facility] mg/dL [facility] Bilirubin Total 1.3 0.2 - 1.3 mg/dL 11/09/2018 8:19 AM [facility] Albumin 2.4 (L) 3.4 - 5.0 g/dL 11/09/2018 8:19 AM [facility] Protein Total 6.2 (L) 6.8 - 8.8 g/dL 11/09/2018 8:19 AM [facility] Alkaline Phosphatase 72 40 - 150 U/L 11/09/2018 8:19 AM [facility] ALT 17 0 - 70 U/L 11/09/2018 8:19 AM [facility] AST 15 0 - 45 U/L 11/09/2018 8:19 AM [facility] Specimen Anatomical Collection Method Collection Time Receive d Time (Source) Location / / Volume Laterality Blood specimen 11/09/2018 7:41 AM 019 7:51 (specimen) INTRAVENOUS THERAPY NURSE AM INTRAVENOUS THERAPY NURSE Dimas Chapman MD LAB - BLOOD ORDERABLES Performing Organization Address City/State/ZIP Code Phon e Number [facility] [address] [address] [facility] [address] [address], U [phone] Magnesium Level scheduled every Thu Wed Thu (11/08/2018 3:40 AM INTRAVENOUS THERAPY NURSE) athologist Signature Magnesium 1.7 1.6 - 2.3 11/08/2018 [facility] mg/dL 4:06 AM [facility] Specimen Anatomical Collection Method Collection Time Receive d Time (Source) Location / / Volume Laterality Blood specimen 11/08/2018 3:40 AM 019 3:46 (specimen) INTRAVENOUS THERAPY NURSE AM INTRAVENOUS THERAPY NURSE iDmas Chapman MD LAB - BLOOD ORDERABLES Performing Organization Address City/State/ZIP Code Phon e Number [facility] [address] [place] [address] [phone] [facility] [address] [place] [address], [place] [phone] (ABNORMAL) Comprehensive metabolic panel (11/08/2018 3:40 AM INTRAVENOUS THERAPY NURSE) Analysis Performed At Patho logist Time Signature Sodium 142 133 - 144 11/08/2018 [place] mmol/L 3:58 AM [facility] Potassium 4.2 3.4 - 5.3 11/08/2018 [facility] mmol/L 3:58 AM [facility] Chloride 111 (H) 94 - 109 11/08/2018 [facility] mmol/L 3:58 AM [facility] Carbon Dioxide 22 20 - 32 11/08/2018 [place] mmol/L 4:04 AM [facility] Anion Gap 9 3 - 14 11/08/2018 [place] mmol/L 4:04 AM [facility] Glucose 164 (H) 70 - 99 11/08/2018 [place] mg/dL 4:04 AM [facility] Urea Nitrogen 20 7 - 30 11/08/2018 [place] mg/dL 4:04 AM [facility] Creatinine 1.29 (H) 0.66 - 11/08/2018 [facility] 1.25 mg/dL 4:04 AM [facility] GFR Estimate 53 (L) >60 11/08/2018 [place] mL/min/{1. 4:04 AM [facility] 73_m2} [facility] Comment: Non GFR Calc Starting 10/05/2018, serum creatinine ba sed estimated GFR (eGFR) will be calculated using the Chronic Kidney Dise [place] Epidemiology Collaboration (CKD-EPI) equation. GFR Estimate If 62 >60 mL/min/{1.73_m2} 11/08/2018 4: 04 AM [facility] Comment: GFR Calc Starting 10/05/2018, serum creatinine ba sed estimated GFR (eGFR) will be calculated using the Chronic Kidney Dise [place]se Epidemiology Collaboration (CKD-EPI) equation. Calcium 8.2 (L) 8.5 - 10.1 11/08/2018 4:04 AM [facility] mg/dL [facility] Bilirubin Total 1.1 0.2 - 1.3 mg/dL 11/08/2018 4:06 AM [facility] Albumin 2.6 (L) 3.4 - 5.0 g/dL 11/08/2018 4:06 AM [facility] Protein Total 6.0 (L) 6.8 - 8.8 g/dL 11/08/2018 4:06 AM [facility] Alkaline Phosphatase 62 40 - 150 U/L 11/08/2018 4:06 AM [facility] ALT 18 0 - 70 U/L 11/08/2018 4:06 AM [facility] AST 19 0 - 45 U/L 11/08/2018 4:06 AM [facility] Specimen Anatomical Collection Method Collection Time Receive d Time (Source) Location / / Volume Laterality Blood specimen 11/08/2018 3:40 AM 019 3:46 (specimen) INTRAVENOUS THERAPY NURSE AM INTRAVENOUS THERAPY NURSE Gurwinder Godoy MD LAB - BLOOD ORDERABLES Performing Organization Address City/State/ZIP Code Phon e Number [facility] [address] [address] [phone] [facility] [address] [address], U [phone] (ABNORMAL) CBC (AM Draw) (11/08/2018 3:40 AM INTRAVENOUS THERAPY NURSE) Analysis Performed At Patho logist Time Signature WBC 11.2 (H) 4.0 - 11.0 11/08/2018 [place] 10e9/L 3:50 AM [facility] RBC Count 3.62 (L) 4.4 - 5.9 11/08/2018 [place] 10e12/L 3:50 AM [facility] Hemoglobin 11.6 (L) 13.3 - 11/08/2018 [facility] 17.7 g/dL 3:50 AM [facility] Hematocrit 34.5 (L) 40.0 - 11/08/2018 [facility] 53.0 % 3:50 AM [facility] MCV 95 78 - 100 11/08/2018 [facility] fl 3:50 AM [facility] MCH 32.0 26.5 - 11/08/2018 [facility] 33.0 pg 3:50 AM [facility] MCHC 33.6 31.5 - 11/08/2018 [facility] 36.5 g/dL 3:50 AM [facility] RDW 13.9 10.0 - 11/08/2018 [facility] 15.0 % 3:50 AM [facility] Platelet Count 82 (L) 150 - 450 11/08/2018 [facility] 10e9/L 3:50 AM [facility] Specimen Anatomical Collection Method Collection Time Receive d Time (Source) Location / / Volume Laterality Blood specimen 11/08/2018 3:40 AM 019 3:46 (specimen) INTRAVENOUS THERAPY NURSE AM INTRAVENOUS THERAPY NURSE Gurwinder Godoy MD LAB - BLOOD ORDERABLES Performing Organization Address City/State/ZIP Code Phon e Number [facility] [address] [address] [phone] [facility] [address] [address], U [phone] (ABNORMAL) CBC with platelets (11/07/2018 3:00 PM INTRAVENOUS THERAPY NURSE) Analysis Performed At Patho logist Time Signature WBC 11.1 (H) 4.0 - 11.0 11/07/2018 [facility] 10e9/L 3:08 PM [facility] RBC Count 3.74 (L) 4.4 - 5.9 11/07/2018 [facility] 10e12/L 3:08 PM [facility] Hemoglobin 11.9 (L) 13.3 - 11/07/2018 [facility] 17.7 g/dL 3:08 PM [facility] Hematocrit 35.4 (L) 40.0 - 11/07/2018 [facility] 53.0 % 3:08 PM [facility] MCV 95 78 - 100 11/07/2018 [place] fl 3:08 PM [facility] MCH 31.8 26.5 - 11/07/2018 [facility] 33.0 pg 3:08 PM [facility] MCHC 33.6 31.5 - 11/07/2018 [facility] 36.5 g/dL 3:08 PM [facility] RDW 14.1 10.0 - 11/07/2018 [facility] 15.0 % 3:08 PM [facility] Platelet Count 87 (L) 150 - 450 11/07/2018 [place] 10e9/L 3:08 PM [facility] Specimen Anatomical Collection Method Collection Time Receive d Time (Source) Location / / Volume Laterality Blood specimen 11/07/2018 3:00 PM 019 3:05 (specimen) INTRAVENOUS THERAPY NURSE PM INTRAVENOUS THERAPY NURSE Bart Feliciano MD LAB - BLOOD ORDERABLES Performing Organization Address City/State/ZIP Code Phon e Number [facility] [address] [place] [address] [phone] [facility] [address] [place] [address], [place] [phone] Magnesium (11/07/2018 9:50 AM INTRAVENOUS THERAPY NURSE) P athologist Signature Magnesium 1.6 1.6 - 2.3 11/07/2018 [place] mg/dL 11:12 AM [facility] Specimen Anatomical Collection Method Collection Time Receive d Time (Source) Location / / Volume Laterality 11/07/2018 9:50 AM 9 INTRAVENOUS THERAPY NURSE 10:04 AM INTRAVENOUS THERAPY NURSE Gurwinder Godoy MD LAB - BLOOD ORDERABLES Performing Organization Address City/State/ZIP Code Phon e Number [facility] [address] [place] [address] [phone] [facility] [address] [place] [address], [place] [phone] (ABNORMAL) CBC with platelets differential (11/07/2018 9:50 AM INTRAVENOUS THERAPY NURSE) Patholo gist Method Time Signature WBC 10.4 4.0 - 11/07/2018 [facility] 11.0 10:13 AM [facility] 10e9/L [facility] RBC Count 3.63 (L) 4.4 [...] Absolute 1.5 (H) 0.0 - 1.3 11/07/2018 [place] Monocytes 10e9/L 10:37 AM [facility] Absolute 0.0 0.0 - 0.7 11/07/2018 [place] Eosinophils 10e9/L 10:37 AM [facility] Absolute 0.0 0.0 - 0.2 11/07/2018 [place] Basophils 10e9/L 10:37 AM [facility] Abs Immature 0.0 0 - 0.4 11/07/2018 [place] Granulocytes 10e9/L 10:37 AM [facility] Absolute 0.0 11/07/2018 [place] Nucleated RBC 10:37 AM [facility] Ovalocytes Slight 11/07/2018 [facility] 10:37 AM [facility] Platelet Automated 11/07/2018 [place] Estimate count 10:37 AM [facility] confirmed. [facility] Platelet morphology is normal. Specimen Anatomical Collection Method Collection Time Receive d Time (Source) Location / / Volume Laterality Blood specimen 11/07/2018 9:50 AM 019 (specimen) INTRAVENOUS THERAPY NURSE 10:04 AM [facility] Gurwinder Godoy MD LAB - BLOOD ORDERABLES Performing Organization Address City/State/ZIP Code Phon e Number [facility] [address] [address] [facility] [address] [address], [place] [phone] (ABNORMAL) Basic metabolic panel (11/07/2018 9:50 AM [facility]) Analysis Performed At Patho logist Time Signature Sodium 147 (H) 133 - 144 11/07/2018 [place] mmol/L 10:16 AM [facility] Potassium 4.1 3.4 - 5.3 11/07/2018 [place] mmol/L 10:16 AM [facility] Chloride 117 (H) 94 - 109 11/07/2018 [place] mmol/L 10:16 AM [facility] Carbon Dioxide 20 20 - 32 11/07/2018 [place] mmol/L 10:23 AM [facility] Anion Gap 10 3 - 14 11/07/2018 [place] mmol/L 10:23 AM [facility] Glucose 108 (H) 70 - 99 11/07/2018 [place] mg/dL 10:23 AM [facility] Urea Nitrogen 23 7 - 30 11/07/2018 [place] mg/dL 10:23 AM [facility] Creatinine 1.47 (H) 0.66 - 11/07/2018 [place] 1.25 mg/dL 10:23 AM [facility] GFR Estimate 46 (L) >60 11/07/2018 [place] mL/min/{1. 10:23 AM [facility] 73_m2} [facility]OSPITAL Comment: Non GFR Calc Starting 10/05/2018, serum creatinine ba sed estimated GFR (eGFR) will be calculated using the Chronic Kidney Dise [facility] Epidemiology Collaboration (CKD-EPI) equation. GFR Estimate If 53 (L) >60 mL/min/{1.73_m2} 11/07/2018 10 :23 AM [place] Black [facility] Comment: GFR Calc Starting 10/05/2018, serum creatinine ba sed estimated GFR (eGFR) will be calculated using the Chronic Kidney Dise [facility] Epidemiology Collaboration (CKD-EPI) equation. Calcium 8.2 (L) 8.5 - 10.1 mg/dL 11/07/2018 10:23 AM [facility] Specimen Anatomical Collection Method Collection Time Receive d Time (Source) Location / / Volume Laterality Blood specimen 11/07/2018 9:50 AM 019 (specimen) INTRAVENOUS THERAPY NURSE 10:04 AM INTRAVENOUS THERAPY NURSE Gurwinder Godoy MD LAB - BLOOD ORDERABLES Performing Organization Address City/State/ZIP Code Phon e Number [facility] [address] [address] [phone] [facility] [address] [address], U [phone] (ABNORMAL) Glucose by meter (11/07/2018 7:44 AM INTRAVENOUS THERAPY NURSE) P athologist Signature Glucose 112 (H) 70 - 99 11/07/2018 [facility] mg/dL 7:56 AM INTRAVENOUS THERAPY NURSE TEST, GLUCOSE Specimen Anatomical Collection Method Collection Time Receive d Time (Source) Location / / Volume Laterality 11/07/2018 7:44 AM 9 7:56 INTRAVENOUS THERAPY NURSE AM INTRAVENOUS THERAPY NURSE Juan YUAN - CAROLYN POCT Performing Organization Address City/State/ZIP Code Phon e Number [facility] POINT OF CARE TEST, GLUCOSE POINT OF CARE TEST, GLUCOSE (ABNORMAL) Glucose by meter (11/07/2018 3:49 AM INTRAVENOUS THERAPY NURSE) P athologist Signature Glucose 105 (H) 70 - 99 11/07/2018 [facility] mg/dL 4:01 AM INTRAVENOUS THERAPY NURSE TEST, GLUCOSE Specimen Anatomical Collection Method Collection Time Receive d Time (Source) Location / / Volume Laterality 11/07/2018 3:49 AM 9 4:01 INTRAVENOUS THERAPY NURSE AM INTRAVENOUS THERAPY NURSE Juan YUAN - CAROLYN POCT Performing Organization Address City/[facility]/ZIP Code Phon e Number [facility] POINT OF CARE TEST, GLUCOSE POINT OF CARE TEST, GLUCOSE (ABNORMAL) Glucose by meter (11/07/2018 12:08 AM INTRAVENOUS THERAPY NURSE) P athologist Signature Glucose 119 (H) 70 - 99 11/07/2018 [facility] mg/dL 12:19 AM INTRAVENOUS THERAPY NURSE TEST, GLUCOSE Specimen Anatomical Collection Method Collection Time Receive d Time (Source) Location / / Volume Laterality 11/07/2018 12:08 11/07/2018 AM INTRAVENOUS THERAPY NURSE 12:19 AM INTRAVENOUS THERAPY NURSE Juan YUAN - CAROLYN POCT Performing Organization Address City/[facility]/ZIP Code Phon e Number [facility] POINT OF CARE TEST, GLUCOSE POINT OF CARE TEST, GLUCOSE (ABNORMAL) Glucose by meter (11/06/2018 7:53 PM INTRAVENOUS THERAPY NURSE) P athologist Signature Glucose 116 (H) 70 - 99 11/06/2018 [facility] mg/dL 8:04 PM INTRAVENOUS THERAPY NURSE TEST, GLUCOSE Specimen Anatomical Collection Method Collection Time Receive d Time (Source) Location / / Volume Laterality 11/06/2018 7:53 PM 9 8:04 INTRAVENOUS THERAPY NURSE PM INTRAVENOUS THERAPY NURSE Juan YUAN - BEFOUZIA POCT Performing Organization Address City/[facility]/ZIP Code Phon e Number [facility] POINT OF CARE TEST, GLUCOSE POINT OF CARE TEST, GLUCOSE (ABNORMAL) Glucose by meter (11/06/2018 11:02 AM INTRAVENOUS THERAPY NURSE) P athologist Signature Glucose 109 (H) 70 - 99 11/06/2018 [facility] mg/dL 11:13 AM INTRAVENOUS THERAPY NURSE TEST, GLUCOSE Specimen Anatomical Collection Method Collection Time Receive d Time (Source) Location / / Volume Laterality 11/06/2018 11:02 11/06/2018 AM INTRAVENOUS THERAPY NURSE 11:13 AM INTRAVENOUS THERAPY NURSE Juan Lewis MD LAB - BEAKER POCT Performing Organization Address City/State/ZIP Code Phon e Number [facility] POINT OF CARE TEST, GLUCOSE POINT OF CARE TEST, GLUCOSE (ABNORMAL) Glucose by meter (11/06/2018 7:38 AM INTRAVENOUS THERAPY NURSE) P athologist Signature Glucose 104 (H) 70 - 99 11/06/2018 [facility] mg/dL 7:50 AM INTRAVENOUS THERAPY NURSE TEST, GLUCOSE Specimen Anatomical Collection Method Collection Time Receive d Time (Source) Location / / Volume Laterality 11/06/2018 7:38 AM 9 7:50 INTRAVENOUS THERAPY NURSE AM INTRAVENOUS THERAPY NURSE Juan Lewis MD LAB - BEAKER POCT Performing Organization Address City/State/ZIP Code Phon e Number [facility] POINT OF CARE TEST, GLUCOSE POINT OF CARE TEST, GLUCOSE Lactic acid whole blood (11/06/2018 4:15 AM INTRAVENOUS THERAPY NURSE) P athologist Signature Lactic Acid 1.4 0.7 - 2.0 11/06/2018 [facility] mmol/L 4:40 AM [facility] Specimen Anatomical Collection Method Collection Time Receive d Time (Source) Location / / Volume Laterality Blood specimen 11/06/2018 4:15 AM 019 4:25 (specimen) INTRAVENOUS THERAPY NURSE AM INTRAVENOUS THERAPY NURSE Bessy Mccray MD LAB - BLOOD ORDERABLES Performing Organization Address City/State/ZIP Code Phon e Number [facility] [address] [address] [facility] [address] [address], U [phone] (ABNORMAL) Basic metabolic panel (11/06/2018 4:15 AM INTRAVENOUS THERAPY NURSE) Analysis Performed At Patho logist Time Signature Sodium 142 133 - 144 11/06/2018 [facility]L 4:49 AM [facility] Potassium 4.4 3.4 - 5.3 11/06/2018 [place] mmol/L 4:49 AM [facility] Chloride 113 (H) 94 - 109 11/06/2018 [place] mmol/L 4:49 AM [facility] Carbon Dioxide 21 20 - 32 11/06/2018 [place] mmol/L 4:54 AM [facility] Anion Gap 8 3 - 14 11/06/2018 [place] mmol/L 4:54 AM [facility] Glucose 115 (H) 70 - 99 11/06/2018 [place] mg/dL 4:54 AM [facility] Urea Nitrogen 27 7 - 30 11/06/2018 [place] mg/dL 4:54 AM [facility] Creatinine 1.57 (H) 0.66 - 11/06/2018 [facility] 1.[facility] mg/dL 4:54 AM [facility] GFR Estimate 42 (L) >60 11/06/2018 [place] mL/min/{1. 4:54 AM [facility] 73_m2} [facility]OSPITAL Comment: Non GFR Calc Starting 10/05/2018, serum creatinine ba sed estimated GFR (eGFR) will be calculated using the Chronic Kidney Dise [facility] Epidemiology Collaboration (CKD-EPI) equation. GFR Estimate If 49 (L) >60 mL/min/{1.73_m2} 11/06/2018 4: 54 AM [facility] Comment: GFR Calc Starting 10/05/2018, serum creatinine ba sed estimated GFR (eGFR) will be calculated using the Chronic Kidney Dise [facility] Epidemiology Collaboration (CKD-EPI) equation. Calcium 7.8 (L) 8.5 - 10.1 mg/dL 11/06/2018 4:54 AM [facility] Specimen Anatomical Collection Method Collection Time Receive d Time (Source) Location / / Volume Laterality Blood specimen 11/06/2018 4:15 AM 019 4:25 (specimen) INTRAVENOUS THERAPY NURSE AM [facility] Bessy Mccray MD LAB - BLOOD ORDERABLES Performing Organization Address City/State/ZIP Code Phon e Number [facility] [address] [address] [facility] [address] [address], [place] [phone] (ABNORMAL) CBC with platelets (11/06/2018 4:15 AM INTRAVENOUS THERAPY NURSE) Analysis Performed At Patho logist Time Signature WBC 12.9 (H) 4.0 - 11.0 11/06/2018 [facility] 10e9/L 4:45 AM [facility] RBC Count 3.93 (L) 4.4 - 5.9 11/06/2018 [facility] 10e12/L 4:45 AM [facility] Hemoglobin 12.5 (L) 13.3 - 11/06/2018 [facility] 17.7 g/dL 4:45 AM [facility] Hematocrit 36.8 (L) 40.0 - 11/06/2018 [facility] 53.0 % 4:45 AM [facility] MCV 94 78 - 100 11/06/2018 [facility] fl 4:45 AM [facility] MCH 31.8 26.5 - 11/06/2018 [facility] 33.0 pg 4:45 AM [facility] MCHC 34.0 31.5 - 11/06/2018 [facility] 36.5 g/dL 4:45 AM [facility] RDW 13.2 10.0 - 11/06/2018 [facility] 15.0 % 4:45 AM [facility] Platelet Count 153 150 - 450 11/06/2018 [facility] 10e9/L 4:45 AM [facility] Specimen Anatomical Collection Method Collection Time Receive d Time (Source) Location / / Volume Laterality Blood specimen 11/06/2018 4:15 AM 019 4:25 (specimen) INTRAVENOUS THERAPY NURSE AM INTRAVENOUS THERAPY NURSE Bessy Mccray MD LAB - BLOOD ORDERABLES Performing Organization Address City/State/ZIP Code Phon e Number [facility] [address] [address] [facility] [address] [address], [place] [phone] (ABNORMAL) Glucose by meter (11/06/2018 1:12 AM INTRAVENOUS THERAPY NURSE) P athologist Signature Glucose 126 (H) 70 - 99 11/06/2018 [facility] mg/dL 1:24 AM INTRAVENOUS THERAPY NURSE TEST, GLUCOSE Specimen Anatomical Collection Method Collection Time Receive d Time (Source) Location / / Volume Laterality 11/06/2018 1:12 AM 9 1:24 INTRAVENOUS THERAPY NURSE AM INTRAVENOUS THERAPY NURSE Juan YUAN - BEAKER POCT Performing Organization Address City/State/ZIP Code Phon e Number [facility] POINT OF CARE TEST, GLUCOSE POINT OF CARE TEST, GLUCOSE Methicillin Resist/Sens S. aureus PCR (11/05/2018 11:41 PM INTRAVENOUS THERAPY NURSE) Patholo gist Method Time Signature Specimen Nares 11/05/2018 [place] Description 11:45 PM INTRAVENOUS THERAPY NURSE [facility] Methicillin Negative NEG^Negat 11/06/[address] [facility] Resist/Sens S. shin 2:36 AM [facility] MEDICAL aureus PCR [facility] Comment: MRSA Negative: SA Negative ??MRSA and St aphylococcus aureus target DNA not detected, presumed negative for MRSA and SA colonization or the number of bacteria present may be below the limit of detection for the assay. FDA approved assay performed using [employer]) real-time PCR. Specimen (Source) Anatomical Collection Method Collection Time Re ceived Time Location / / Volume Laterality Nasal structure 11/05/2018 11:41 11/06/19 19 (body structure) PM INTRAVENOUS THERAPY NURSE Bessy Mccray MD LAB - MICRO GENERAL ORDERABL ES Performing Organization Address City/[facility]/ZIP Code Phon e Number [facility] [address] [place] [address] [facility] [address] [place] [address], U [phone] (ABNORMAL) Glucose by meter (11/05/2018 8:16 PM INTRAVENOUS THERAPY NURSE) P athologist Signature Glucose 128 (H) 70 - 99 11/05/2018 [facility] mg/dL 8:28 PM INTRAVENOUS THERAPY NURSE TEST, GLUCOSE Specimen Anatomical Collection Method Collection Time Receive d Time (Source) Location / / Volume Laterality 11/05/2018 8:16 PM 9 8:28 INTRAVENOUS THERAPY NURSE PM INTRAVENOUS THERAPY NURSE Juan YUAN - BEFOUZIA POCT Performing Organization Address City/State/ZIP Code Phon e Number [facility] POINT OF CARE TEST, GLUCOSE POINT OF CARE TEST, GLUCOSE (ABNORMAL) Glucose by meter (11/05/2018 4:39 PM INTRAVENOUS THERAPY NURSE) P athologist Signature Glucose 124 (H) 70 - 99 11/05/2018 [facility] mg/dL 4:50 PM INTRAVENOUS THERAPY NURSE TEST, GLUCOSE Specimen Anatomical Collection Method Collection Time Receive d Time (Source) Location / / Volume Laterality 11/05/2018 4:39 PM 9 4:50 INTRAVENOUS THERAPY NURSE PM INTRAVENOUS THERAPY NURSE Juan Lewis MD LAB - BEAKER POCT Performing Organization Address City/State/ZIP Code Phon e Number [facility] POINT OF CARE TEST, GLUCOSE POINT OF CARE TEST, GLUCOSE (ABNORMAL) CBC with platelets (11/05/2018 4:35 PM INTRAVENOUS THERAPY NURSE) Analysis Performed At Patho logist Time Signature WBC 7.3 4.0 - 11.0 11/05/2018 [facility] 10e9/L 5:22 PM [facility] RBC Count 4.35 (L) 4.4 - 5.9 11/05/2018 [facility] 10e12/L 5:22 PM [facility] Hemoglobin 13.7 13.3 - 11/05/2018 [facility] 17.7 g/dL 5:22 PM [facility] Hematocrit 40.9 40.0 - 11/05/2018 [facility] 53.0 % 5:22 PM [facility] MCV 94 78 - 100 11/05/2018 [facility] fl 5:22 PM [facility] MCH 31.5 26.5 - 11/05/2018 [facility] 33.0 pg 5:22 PM [facility] MCHC 33.5 31.5 - 11/05/2018 [facility] 36.5 g/dL 5:22 PM [facility] RDW 13.1 10.0 - 11/05/2018 [facility] 15.0 % 5:22 PM [facility] Platelet Count 108 (L) 150 - 450 11/05/2018 [facility] 10e9/L 5:22 PM [facility] Specimen Anatomical Collection Method Collection Time Receive d Time (Source) Location / / Volume Laterality Blood specimen 11/05/2018 4:35 PM 019 5:17 (specimen) INTRAVENOUS THERAPY NURSE PM INTRAVENOUS THERAPY NURSE Bessy Mccray MD LAB - BLOOD ORDERABLES Performing Organization Address City/State/ZIP Code Phon e Number [facility] [address] [place] [address] [phone] [facility] [address] [place] [address], [place] [phone] INR (11/05/2018 4:35 PM INTRAVENOUS THERAPY NURSE) P athologist Signature INR 1.03 0.86 - 1.14 11/05/2018 [place] 5:33 PM [facility] Specimen Anatomical Collection Method Collection Time Receive d Time (Source) Location / / Volume Laterality Blood specimen 11/05/2018 4:35 PM 019 5:17 (specimen) INTRAVENOUS THERAPY NURSE PM INTRAVENOUS THERAPY NURSE Bessy Mccray MD LAB - BLOOD ORDERABLES Performing Organization Address City/State/ZIP Code Phon e Number [facility] [address] [place] [address] [phone] [facility] [address] [place] [address], [place] [phone] Lactic acid whole blood (11/05/2018 4:35 PM INTRAVENOUS THERAPY NURSE) P athologist Signature Lactic Acid 1.0 0.7 - 2.0 11/05/2018 [place] mmol/L 5:57 PM [facility] Specimen Anatomical Collection Method Collection Time Receive d Time (Source) Location / / Volume Laterality Blood specimen 11/05/2018 4:35 PM 019 5:18 (specimen) INTRAVENOUS THERAPY NURSE PM INTRAVENOUS THERAPY NURSE Bessy Mccray MD LAB - BLOOD ORDERABLES Performing Organization Address City/State/ZIP Code Phon e Number [facility] [address] [place] [address] [phone] [facility] [address] [place] [address], [place] [phone] (ABNORMAL) Basic metabolic panel (11/05/2018 4:35 PM INTRAVENOUS THERAPY NURSE) Analysis Performed At Patho logist Time Signature Sodium 143 133 - 144 11/05/2018 [place] mmol/L 5:38 PM [facility] Potassium 4.3 3.4 - 5.3 11/05/2018 [place] mmol/L 5:38 PM [facility] Chloride 113 (H) 94 - 109 11/05/2018 [facility]/L 5:38 PM [facility] Carbon Dioxide 22 20 - 32 11/05/2018 [facility] mmol/L 5:43 PM [facility] Anion Gap 8 3 - 14 11/05/2018 [facility] mmol/L 5:43 PM [facility] Glucose 121 (H) 70 - 99 11/05/2018 [facility] mg/dL 5:43 PM [facility] Urea Nitrogen 24 7 - 30 11/05/2018 [facility] mg/dL 5:43 PM [facility] Creatinine 1.30 (H) 0.66 - 11/05/2018 [facility] 1.25 mg/dL 5:43 PM [facility] GFR Estimate 53 (L) >60 11/05/2018 [place] mL/min/{1. 5:43 PM [facility] [id number]} HOSPITAL Comment: Non GFR Calc Starting 10/05/2018, serum creatinine ba sed estimated GFR (eGFR) will be calculated using the Chronic Kidney Dise [facility] Epidemiology Collaboration (CKD-EPI) equation. GFR Estimate If 61 >60 mL/min/{1.73_m2} 11/05/2018 5: 43 PM [facility] Comment: GFR Calc Starting 10/05/2018, serum creatinine ba sed estimated GFR (eGFR) will be calculated using the Chronic Kidney Dise [facility] Epidemiology Collaboration (CKD-EPI) equation. Calcium 8.6 8.5 - 10.1 mg/dL 11/05/2018 5:43 PM [facility] Specimen Anatomical Collection Method Collection Time Receive d Time (Source) Location / / Volume Laterality Blood specimen 11/05/2018 4:35 PM 019 5:17 (specimen) INTRAVENOUS THERAPY NURSE PM [facility] Bessy Mccray MD LAB - BLOOD ORDERABLES Performing Organization Address City/State/ZIP Code Phon e Number [facility] [address] [address] [phone] [facility] [address] [address], [place] [phone] IR Thoracic Endovascular Stent Graft (11/05/2018 12:09 PM INTRAVENOUS THERAPY NURSE) Anatomical Region Laterality Modality Chest Radio Fluoroscopy Specimen (Source) Anatomical Location Collection Method / Collectio n Time Received Time / Laterality Volume Impressions 11/06/2018 3:33 PM INTRAVENOUS THERAPY NURSE IMPRESSION: Successful deployment in 2 components for [...] KANNAN MORSE MD Narrative 11/06/2018 3:33 PM INTRAVENOUS THERAPY NURSE INTERVENTIONAL RADIOLOGY THORACIC ENDOVASCULAR STENT GRAFT ??11/05/2018 [...] cm. Plan is for endovascular repair with J[employer]ool Valiant Navion stent graft system. TECHNIQUE: Please [...] tion. Over a series of maneuvers, 6 [place] vascular sheath was placed. From left groin [...] cm. Plan is for endovascular repair with [employer] Valiant Navion stent graft system. TECHNIQUE: Please [...] tion. Over a series of maneuvers, 6 [place] vascular sheath was placed. From left groin [...] Drain Placement w Fluoro (11/05/2018 9:10 AM INTRAVENOUS THERAPY NURSE) Anatomical Region Laterality Modality Spine Radio Fluoroscopy Specimen (Source) Anatomical Location Collection Method / Collectio n Time Received Time / Laterality Volume Narrative 11/05/2018 9:19 AM INTRAVENOUS THERAPY NURSE [facility] RADIOLOGY INTERVENTIONAL NEURORADIOLOGY PROCEDURAL NOTE [...] codes included for physician referen ce only: [id number] MISSAEL GARCIA MD Procedure Note Missael Garcia MD - 11/05/2018For matting of this note might be different from the original. [facility] RADIOLOGY INTERVENTIONAL NEURORADIOLOGY PROCEDURAL NOTE FLUOROSCOPICALLY [...] codes included for physician referen ce only: 62749/76005 MISSAEL GARCIA MD Butch Brown MD IMG IR ORDERABLES EKG 12-lead, tracing only (11/05/2018 6:58 AM INTRAVENOUS THERAPY NURSE) [facility] gist Method Time Signature Interpretation ECG Click View RADIOLOGY Image link RESULTS to view waveform and result Specimen (Source) Anatomical Collection Method Collection Time Re ceived Time Location / / Volume Laterality 11/05/2018 6:58 AM INTRAVENOUS THERAPY NURSE Juan Lewis MD ECG ORDERABLES Performing Organization Address City/State/ZIP Code Phon e Number RADIOLOGY RESULTS Potassium (11/05/2018 6:55 AM INTRAVENOUS THERAPY NURSE) athologist Signature Potassium 4.3 3.4 - 5.3 11/05/2018 [facility] mmol/L 7:15 AM INTRAVENOUS THERAPY NURSE [facility] Specimen Anatomical Collection Method Collection Time Receive d Time (Source) Location / / Volume Laterality Blood specimen 11/05/2018 6:55 AM 019 6:56 (specimen) INTRAVENOUS THERAPY NURSE AM INTRAVENOUS THERAPY NURSE Zakia Tobin MD LAB - BLOOD ORDERABLES Performing Organization Address City/State/ZIP Code Phon e Number [facility] [address] [place] [address] [facility] [address] [place] [address], [place] [phone] Lipid panel (11/05/2018 6:55 AM INTRAVENOUS THERAPY NURSE) Analysis Performed At Patho logist Time Signature Cholesterol 128 <200 mg/dL 11/05/2018 [facility] 7:20 AM [facility] Triglycerides 125 <150 mg/dL 11/05/2018 [facility] 7:21 AM [facility] HDL Cholesterol 59 >39 mg/dL 11/05/2018 [facility] 7:23 AM [facility] LDL Cholesterol 44 <100 mg/dL 11/05/2018 [facility] Calculated 7:23 AM [facility] Comment: Desirable: <100 mg/dl Non HDL Cholesterol 69 <130 mg/dL 11/05/2018 7:23 AM [facility] Specimen Anatomical Collection Method Collection Time Receive d Time (Source) Location / / Volume Laterality Blood specimen 11/05/2018 6:55 AM 019 6:56 (specimen) INTRAVENOUS THERAPY NURSE AM INTRAVENOUS THERAPY NURSE Juan Lewis MD LAB - BLOOD ORDERABLES Performing Organization Address City/State/ZIP Code Phon e Number [facility] [address] [place] [address] [phone] [facility] [address] [place] [address], [place] [phone] Hemoglobin A1c (11/05/2018 6:55 AM INTRAVENOUS THERAPY NURSE) P athologist Signature Hemoglobin A1C 5.2 0 - 5.6 % 11/05/2018 [facility] 7:30 AM [facility] Comment: Normal <5.7% Prediabetes 5.7-6.4% ??Diab etes 6.5% or higher - adopted from ADA consensus guidelines. Specimen Anatomical Collection Method Collection Time Receive d Time (Source) Location / / Volume Laterality Blood specimen 11/05/2018 6:55 AM 019 6:56 (specimen) INTRAVENOUS THERAPY NURSE AM INTRAVENOUS THERAPY NURSE Juan Lewis MD LAB - BLOOD ORDERABLES Performing Organization Address City/State/ZIP Code Phon e Number [facility] [address] [place] [address] [facility] [address] [place] [address], [place] [phone] (ABNORMAL) Creatinine (11/05/2018 6:55 AM INTRAVENOUS THERAPY NURSE) athologist Signature Creatinine 1.52 (H) 0.66 - 11/05/2018 [place] 1.25 mg/dL 7:20 AM [facility] GFR Estimate 44 (L) >60 11/05/2018 [place] mL/min/{1. 7:20 AM [facility] 73_m2} [facility] Comment: Non GFR Calc Starting 10/05/2018, serum creatinine ba sed estimated GFR (eGFR) will be calculated using the Chronic Kidney Dise [facility] Epidemiology Collaboration (CKD-EPI) equation. GFR Estimate If 51 (L) >60 mL/min/{1.73_m2} 11/05/2018 7: 20 AM [facility] Comment: GFR Calc Starting 10/05/2018, serum creatinine ba sed estimated GFR (eGFR) will be calculated using the Chronic Kidney Dise [facility] Epidemiology Collaboration (CKD-EPI) equation. Specimen Anatomical Collection Method Collection Time Receive d Time (Source) Location / / Volume Laterality Blood specimen 11/05/2018 6:55 AM 019 6:56 (specimen) INTRAVENOUS THERAPY NURSE AM INTRAVENOUS THERAPY NURSE Juan Lewis MD LAB - BLOOD ORDERABLES Performing Organization Address City/State/ZIP Code Phon e Number [facility] [address] [place] [address] [facility] [address] [address], [place] [phone] XR Chest Port 1 View (11/05/2018 6:40 AM INTRAVENOUS THERAPY NURSE) Anatomical Region Laterality Modality Chest Digital Radiography Specimen (Source) Anatomical Location Collection Method / Collectio n Time Received Time / Laterality Volume Impressions 11/05/2018 6:58 AM INTRAVENOUS THERAPY NURSE IMPRESSION: No acute abnormality. TORI SANTIZO MD Narrative 11/05/2018 6:58 AM INTRAVENOUS THERAPY NURSE XR CHEST PORTABLE 1 VIEW ?? 11/05/2018 [...] CARDIAC - HIM SCAN (09/24/2018 12:00 AM INTRAVENOUS THERAPY NURSE) Specimen (Source) Anatomical Location Collection Method / [...] tablet 975 mg Given 11/08/2018 11:04 PM INTRAVENOUS THERAPY NURSE 975 mg 975 mg, Oral, EVERY 6 HOURS PRN, mild pain, fever, Starting on Thu11/05/18 at 1827, Maximum acetaminophen dose from all sources = 75 mg/kg/day not to exceed 4 grams/day. Given 11/08/2018 12:37 PM INTRAVENOUS THERAPY NURSE 975 mg Given 11/07/2018 11:03 AM INTRAVENOUS THERAPY NURSE 975 mg alum & mag hydroxide-simethicone (MYLANTA Given 11/08/2018 2:48 AM INTRAVENOUS THERAPY NURSE 30 mLs ES/MAALOX ES) suspension 30 mL 30 mL, Oral, EVERY 4 HOURS PRN, indigestion, Starting on Thu11/05/18 at 1510, Shake well. apixaban ANTICOAGULANT (ELIQUIS) tablet 2.5 Given 10/20 12:04 PM INTRAVENOUS THERAPY NURSE 2.5 mg mg 2.5 mg, Oral, 2 TIMES DAILY, First dose on Thu11/09/18 at 1115 atorvastatin (LIPITOR) tablet 40 mg Given 11/08/2018 8:20 PM INTRAVENOUS THERAPY NURSE 40 mg 40 mg, Oral, EVERY EVENING, First dose on Thu11/05/18 at 2000 Given 11/07/2018 7:49 PM INTRAVENOUS THERAPY NURSE 40 mg Given 11/06/2018 9:16 PM INTRAVENOUS THERAPY NURSE 40 mg calcium carbonate (TUMS) chewable tablet Given 11/07/2018 10 :34 PM INTRAVENOUS THERAPY NURSE 1,000 mg 1,000 mg 1,000 mg, Oral, EVERY 2 HOURS PRN, heartburn, Starting on Thu11/06/18 at 0408, Do not give if calcium level greater than 10 mg/dL. Given 11/07/2018 12:05 AM INTRAVENOUS THERAPY NURSE 1,000 mg Given 11/06/2018 4:50 AM INTRAVENOUS THERAPY NURSE 1,000 mg clindamycin (CLEOCIN) infusion 900 New Bag 11/06/2018 2:05 AM INTRAVENOUS THERAPY NURSE 900 mg 50 mL/hr mg Routine, 900 mg, Intravenous, EVERY 8 HOURS, First dose on Thu11/05/18 at 1800, For 2 doses, Indications: Perioperative Pharmacoprophylaxis, Post-procedure New Bag 11/05/2018 6:08 PM INTRAVENOUS THERAPY NURSE 900 mg 50 mL/hr cyclobenzaprine (FLEXERIL) tablet 5-10 m g Given 11/08/2018 3:58 AM INTRAVENOUS THERAPY NURSE 10 mg 5-10 mg, Oral, 3 TIMES DAILY PRN, muscle spasms, Starting on Thu11/07/18 at 1153 Given 11/07/2018 2:26 PM INTRAVENOUS THERAPY NURSE 5 mg dextrose 5% and 0.45% NaCl infusion New Bag 11/08/2018 6:44 PM INTRAVENOUS THERAPY NURSE 75 mL/hr at 75 mL/hr, Intravenous, CONTINUOUS, Starting on Thu11/07/18 at 1200, Until Thu11/09/18 at 0731 Restarted 11/08/2018 4:21 PM INTRAVENOUS THERAPY NURSE 75 mL/hr New Bag 11/08/2018 7:35 AM INTRAVENOUS THERAPY NURSE 100 mL/hr diphenhydrAMINE (BENADRYL) injection 12. 5 mg 12.5 mg, Intravenous, EVERY 6 HOURS PRN, itching, Only give if patient unable to take PO., Starting on Thu11/05/18 at 151 0, Caution to be used when administering multiple FORGESMITH depressing meds within a sh ort time frame. For ordered IV doses 1-50 mg, give IV Push undiluted. Give each 25 mg over a minimum of 1 minute. Extend in non-emergency diphenhydrAMINE (BENADRYL) solution 12.5 mg 12.5 mg, Oral, EVERY 6 HOURS PRN, itchin g, Starting on Thu11/05/18 at 1510, Caution to be used when administering multiple FORGESMITH depressing meds within a short time frame. fentaNYL (PF) (SUBLIMAZE) 100 MCG/2ML in jection Starting on Thu11/05/18 at 0841, For 1 d Rob thomas Callie : cabinet override For ordered IV doses 1-100 mcg give IV Push undiluted over a minimum of 3-5 minutes. fentaNYL (PF) (SUBLIMAZE) injection 100 mcg Given 11/05/2018 7:45 AM INTRAVENOUS THERAPY NURSE 50 mcg 100 mcg, Intravenous, ONCE, Administer over 3-5 Minutes, On Thu11/05/18 at 0745, For 1 dose, For ordered IV doses 1-100 mcg give IV Push undiluted over a minimum of 3-5 minutes., Pre-procedure Given 11/05/2018 7:31 AM INTRAVENOUS THERAPY NURSE 50 mcg fentaNYL (PF) (SUBLIMAZE) injection 25-5 0 mcg Given 11/05/2018 8:48 AM INTRAVENOUS THERAPY NURSE 50 mcg 25-50 mcg, Intravenous, EVERY 5 [...] 50 m cg Given 11/05/2018 1:33 PM INTRAVENOUS THERAPY NURSE 50 mcg 50 mcg, Intravenous, EVERY 5 MIN PRN, moderate to severe pain, Administer over 3-5 Minutes, Starting on Thu11/05/18 at 1333, For ordered IV doses 1-100 mcg give IV Push undiluted over a minimum of 3-5 minutes., PACU hydrALAZINE (APRESOLINE) injection 10-20 mg Given 11/08/2018 7:03 PM INTRAVENOUS THERAPY NURSE 10 mg 10-20 mg, Intravenous, EVERY 1 [...] over 1 minute. Given 11/08/2018 11:51 AM INTRAVENOUS THERAPY NURSE 20 mg Given 11/08/2018 3:36 AM INTRAVENOUS THERAPY NURSE 20 mg labetalol (NORMODYNE/TRANDATE) 5 MG/ML i njection Starting on Thu11/05/18 at 1521, For 1 d Cisco thomas Doreen : cabinet override For ordered doses up to 80 mg, give IV Push undiluted. Give each 20 mg over 2 minutes. labetalol (NORMODYNE/TRANDATE) injection 10 mg Given 11/05/2018 3:43 PM INTRAVENOUS THERAPY NURSE 10 mg 10 mg, Intravenous, EVERY 10 [...] 2 minutes., Post-procedure Given 11/05/2018 3:25 PM INTRAVENOUS THERAPY NURSE 10 mg labetalol (NORMODYNE/TRANDATE) injection 10 mg Given 11/05/2018 1:45 PM INTRAVENOUS THERAPY NURSE 10 mg 10 mg, Intravenous, ONCE, Administer over 2-8 Minutes, On Thu11/05/18 at 1400, For 1 dose, For ordered doses up to 80 mg, give IV Push undiluted. Give each 20 mg over 2 minutes., PACU labetalol (NORMODYNE/TRANDATE) injection 10-20 Given 0 11/08/2018 3:03 AM INTRAVENOUS THERAPY NURSE 10 mg mg 10-20 mg, Intravenous, EVERY [...] over 2 minutes. Given 11/08/2018 2:33 AM INTRAVENOUS THERAPY NURSE 20 mg Given 11/07/2018 10:35 PM INTRAVENOUS THERAPY NURSE 10 mg labetalol (NORMODYNE/TRANDATE) injection 20 Given 11/05/2018 12:37 PM INTRAVENOUS THERAPY NURSE 10 mg mg 20 mg, Intravenous, ONCE, Administer over 2-8 Minutes, On Thu11/05/18 at 1315, For 1 dose, For ordered doses up to 80 mg, give IV Push undiluted. Give each 20 mg over 2 minutes., Pre-procedure labetalol (NORMODYNE/TRANDATE) injection 5 mg Given 11/05/2018 1:13 PM INTRAVENOUS THERAPY NURSE 5 mg 5 mg, Intravenous, ONCE, Administer over 2-8 Minutes, On Thu11/05/18 at 1315, For 1 dose, For ordered doses up to 80 mg, give IV Push undiluted. Give each 20 mg over 2 minutes., PACU lactated ringers infusion New Bag 11/05/2018 6:52 AM INTRAVENOUS THERAPY NURSE 25 mL/hr at 25 mL/hr, Intravenous, CONTINUOUS, IF patient NOT on dialysis., Pre-procedure, Starting on Thu11/05/18 at 0645, Until Thu11/05/18 at 0836 lidocaine 1 % 1 mL Given 11/05/2018 6:53 AM INTRAVENOUS THERAPY NURSE 0.3 mLs 1 mL, Other, EVERY 1 [...] 2 5 mg Given 11/08/2018 8:22 AM INTRAVENOUS THERAPY NURSE 25 mg 25 mg, Oral, 2 TIMES DAILY, First dose (after last modification) on Thu11/05/18 at 1615 Given 11/07/2018 7:49 PM INTRAVENOUS THERAPY NURSE 25 mg Given 11/07/2018 11:14 AM INTRAVENOUS THERAPY NURSE 25 mg metoprolol tartrate (LOPRESSOR) tablet 5 0 mg Given 11/09/2018 8:28 AM INTRAVENOUS THERAPY NURSE 50 mg 50 mg, Oral, 2 TIMES DAILY, First dose on Thu11/08/18 at 2100, Hold for SBP < 90, HR < 50 Given 11/08/2018 8:20 PM INTRAVENOUS THERAPY NURSE 50 mg midazolam (VERSED) 1 MG/ML injection Starting on Thu11/05/18 at 0841, For 1 d Rob thomas Callie : cabinet override For ordered IV doses 0.1-2.5 mg give IV Push slowly titrat ed over a minimum of 2 minutes. Dilute each 1mg in 4mL of NS. midazolam (VERSED) injection 0.5-1 mg Given 11/05/2018 8:48 AM INTRAVENOUS THERAPY NURSE 1 mg 0.5-1 mg, Intravenous, Administer over [...] injection 4 mg Given 11/05/2018 7:53 AM INTRAVENOUS THERAPY NURSE 1 mg 4 mg, Intravenous, Administer over 2 Minutes, EVERY 4 MIN PRN, anxiety, Starting on Thu11/05/18 at 0732, For ordered IV doses 0.1-2.5 mg give IV Push slowly titrated over a minimum of 2 minutes. Dilute each 1mg in 4mL of NS., Pre-procedure Given 11/05/2018 7:49 AM INTRAVENOUS THERAPY NURSE 1 mg Given 11/05/2018 7:38 AM INTRAVENOUS THERAPY NURSE 1 mg omeprazole (priLOSEC) CR capsule 20 mg Given 11/09/2018 6:33 AM INTRAVENOUS THERAPY NURSE 20 mg 20 mg, Oral, EVERY MORNING BEFORE BREAKFAST, First dose on 11/07/18 at 2345 Given 11/08/2018 8:22 AM INTRAVENOUS THERAPY NURSE 20 mg Given 11/07/2018 11:48 PM INTRAVENOUS THERAPY NURSE 20 mg ondansetron (ZOFRAN) injection 4 mg Given 11/07/2018 11:48 PM INTRAVENOUS THERAPY NURSE 4 mg 4 mg, Intravenous, EVERY 6 [...] half-tab 2.5-5 mg Given 11/08/2018 12:37 PM INTRAVENOUS THERAPY NURSE 5 mg 2.5-5 mg, Oral, EVERY 4 HOURS PRN, moderate to severe pain, Starting on Thu11/05/18 at 1724 Given 11/08/2018 6:19 AM INTRAVENOUS THERAPY NURSE 5 mg Given 11/07/2018 7:49 PM INTRAVENOUS THERAPY NURSE 5 mg phenylephrine Rate/Dose Change 11/06/2018 6:45 0.3 mcg/kg/min 7.6 mL/ hr (OSIEL-SYNEPHRINE) 50 mg PM INTRAVENOUS THERAPY NURSE in sodium chloride 0.9 % 250 mL [...] goals. Vesicant. Rate/Dose Change 11/06/2018 6:15 PM INTRAVENOUS THERAPY NURSE 0.5 mcg/kg/min 12.6 mL/hr Rate/Dose Change 11/06/2018 5:34 PM INTRAVENOUS THERAPY NURSE 0.7 mcg/kg/min 17.7 mL/hr sennosides (SENOKOT) tablet 8.6 mg Given 11/08/2018 3:36 AM INTRAVENOUS THERAPY NURSE 8.6 mg 8.6 mg, Oral, 2 TIMES DAILY PRN, constipation, Starting on Thu11/08/18 at 0250 sodium chloride (PF) 0.9% PF flush 3 mL Given 11/07/2018 4:12 PM INTRAVENOUS THERAPY NURSE 3 mLs 3 mL, Intracatheter, EVERY 8 HOURS, First dose on Thu11/05/18 at 1515, And Q1H PRN, to lock peripheral IV dormant line. Given 11/07/2018 11:34 AM INTRAVENOUS THERAPY NURSE 3 mLs Given 11/07/2018 12:06 AM INTRAVENOUS THERAPY NURSE 10 mLs sodium chloride 0.9% infusion New Bag 11/06/2018 7:48 PM INTRAVENOUS THERAPY NURSE 100 mL/hr at 100 mL/hr, Intravenous, CONTINUOUS, For patient on renal dialysis. Saline lock after 1 liter if taking PO fluids., Post-procedure, Starting on Thu11/05/18 at 1515, Until Thu11/08/18 at 1245 New Bag 11/06/2018 12:08 PM INTRAVENOUS THERAPY NURSE 100 mL/hr New Bag 11/06/2018 2:33 AM INTRAVENOUS THERAPY NURSE 100 mL/hr terazosin (HYTRIN) capsule 5 mg Given 11/08/2018 9:21 PM INTRAVENOUS THERAPY NURSE 5 mg 5 mg, Oral, AT BEDTIME, First dose on Thu11/05/18 at 2200 documented in this encounter Active and Recently Administered Medications Times are shown in INTRAVENOUS THERAPY NURSE. Scheduled Medication Order 11/07/2018 11/08/2018 11/09/2018 apixaban ANTICOAGULANT (ELIQUIS) tablet 2.5 mg 1204 (Given - Provider: Kiki Traylor RN) 2.5 mg, Oral, 2 TIMES DAILY, First dose on Thu11/09/18 at 1115 atorvastatin (LIPITOR) tablet 40 mg 194 (Given - Provider: Kristy Castañeda RN) 2019 (Given - Provider: Maria C Dubnar RN) 40 mg, Oral, EVERY EVENING, First [...] RN) at 75 mL/hr, Intravenous, CONTINUOUS, [facility] 11/07/18 at 1200, Until Tu11/09/18 at 0731 [...] ovider: Ramiro Lozano RN)1103 (Given - Provider: Dnaette Peck RN) 1237 (Given - Provider: Aura [...] Caution to be used when administering multiple FORGESMITH depressing meds within a short time frame. For ordered IV doses 1-50 m g, give IV Push undiluted. Give each 25mg over a minimum of 1 minute. Extend in non-emergency diphenhydrAMINE (BENADRYL) solution 12.5 mg(Linked Group 1) 12.5 mg, Oral, EVERY 6 HOURS PRN, itchin g, Starting 11/05/18 at 1510, Caution to be used when administering multiple FORGESMITH depressing meds within a short time frame. [...] (ZOFRAN-ODT) ODT tab 4 mg(Linked Group 2) 8839 (See Alternative - Provider: Kristy Castañeda, JOSE) [...]
Caution to be used when administering multiple FORGESMITH depressing meds within a short time frame.
Or diphenhydrAMINE (BENADRYL) injection 12.5 mgJump to med 12.5 mg, Intravenous, EVERY 6 HOURS PRN, itching, Only give if patient unable to take PO., Starting Thu11/05/18 at 1510
Caution to be used when administering multiple FORGESMITH depressing meds within a short time frame. [...] documented as of this encounter Care Teams It Risk And Assurance Senior Manager Relationship Specialty Start Date End [facility] - [facility] 05/[facility]/[address] [place] [id number] documented as of this encounter
--- OUTSIDE RECORDS SUMMARY | 2022-08-14 11:15 | XMS_ITS | Encounter Summary ---
:1940 Author Organization [place] Address [address] [place] [address] Care Team Providers Name Role Phone Kehinde Portillo Primary Care Provider [phone] Encounter Details Date Type Department Care Team [...] documented as of this encounter Care Teams Tetryl Nitrator Operator Relationship Specialty Start Date End Date [facility], Kehinde Santos PCP - General 05/12/[address] [place] [id number] documented as of this encounter
--- OUTSIDE RECORDS SUMMARY | 2022-08-14 11:15 | XMS_ITS | Encounter Summary ---
:1940 Author Organization [place] Address [address] [place] [address] Care Team Providers Name Role Phone [facility], [facility] Primary Care Provider [phone] Reason for Referral Diagnostic Imaging CT Scan - Closed Specialty Diagnoses / Procedures Referred By Contact Refer red To Contact Radiology. Diagnoses Thoracic aortic aneurysm Juan Lewis MD Ct Scan Procedures CTA Chest Abdomen Pelvis w Contrast [address] [place] [address] [place] [phone] Referral ID Status Reason Start Date Expiration Date Visits Requ ested Visits Authorized [id number] Closed 11/12/2018 11/12/2019 1 1 R DISTRIBUTOR Encounter Details Date Type Department Care Team Description 11/12/2018 [facility] Only [facility] Juan Lewis Thoracic aortic Vascular Clinic Félix Nava MD aneurysm (H) (Primary [address] ) [address] [place] [phone] [place] [id number] Social History Tobacco Use Types Packs/Day Years [...] Abdomen Pelvis w Contrast (11/26/2018 9:03 AM POWER DISTRIBUTOR) Anatomical Region Laterality Modality Lower Extremity, SUBRAD IR PROCEDURE, UMP CT CTA, RAD Computed Tomography CT Specimen (Source) Anatomical Location Collection Method / Collectio n Time Received Time / Laterality Volume Impressions 11/26/2018 4:44 PM POWER DISTRIBUTOR IMPRESSION: 1. New thoracic aortic endograft. Tandem areas of aneurysmal dilatation are relatively unchanged in s ize. No visible endoleak. Recommend annual surveillance. 2. Infrarenal abdominal aortic aneurysm measuring 4.6 x 4.6 cm, unchanged. 3. Somewhat irregular fluid collection i n left groin, likely postoperative seroma. Surrounding enlarg ed lymph nodes. TANNER STARKS MD Narrative 11/26/2018 4:44 PM POWER DISTRIBUTOR CTA CHEST, ABDOMEN AND PELVIS WITH CONTRAST [...] documented as of this encounter Care Teams Assembly Machine Feeder Relationship Specialty Start Date End Date [facility], [facility] PCP - General 05/12/[address] [place] [id number] documented as of this encounter
--- OUTSIDE RECORDS SUMMARY | 2022-08-14 11:15 | XMS_ITS | Encounter Summary ---
:1940 Author Organization [place] Address [address] [place] [address]. [place] [address] Care Team Providers Name Role Phone Clinic, [facility] Primary Care Provider [phone] Encounter Details Date Type Department Care Team Description 11/26/2018 [facility] Butch Brown Thoracic a ortic Vascular Clinic Félix Jay MD aneurysm (H) (Primary [address] ) [address] [place] [phone] [place] [address] Social History Tobacco Use Types Packs/Day Years [...] as of this encounter Care Teams Inspector And Mender Relationship Specialty Start Date End Date Clinic, Kehinde Santos PCP - General 05/12/17 [address] [phone] documented as of this encounter
--- OUTSIDE RECORDS SUMMARY | 2022-08-14 11:15 | XMS_ITS | Encounter Summary ---
:1940 Author Organization [place] Address [address] [facility] [place] [address] Care Team Providers Name Role Phone [facility], [facility] Primary Care Provider [phone] Reason for Referral Diagnostic Imaging CT Scan - Closed Specialty Diagnoses / Procedures Referred By Contact Refer red To Contact Radiology. Diagnoses Thoracic aortic aneurysm Juna Lewis MD Ct Scan Procedures CTA Chest Abdomen Pelvis w Contrast [address] [place] [address] [place] [address] Referral ID Status Reason Start Date Expiration Date Visits Requ ested Visits Authorized [id number] Closed 11/12/2018 11/12/2019 1 1 ONAL PSYCHIATRIC DIRECTOR Reason for Visit Diagnostic Imaging CT Scan - Closed Specialty Diagnoses / Procedures Referred By Contact Refer red To Contact Radiology. Diagnoses Thoracic aortic aneurysm Juan Lewis MD Ct Scan Procedures CTA Chest Abdomen Pelvis w Contrast [address] [place] [address] [place] [address] Referral ID Status Reason Start Date Expiration Date Visits Requ ested Visits Authorized [id number] Closed 11/12/2018 11/12/2019 1 1 Encounter Details Date Type Department Care Team Description 11/26/2018 [facility] Non-Fv Credentialed Pro vider, Lab Thoracic aortic Encounter [facility] Butch Brown MD [address] [place] [id number] aneurysm (H) [address] [place] [address] Social [...] R esults for this PELVIS W CONTRAST REGIONAL PSYCHIATRIC DIRECTOR aneurysm (H) procedure are in the results section. documented in this encounter Results CTA Chest Abdomen Pelvis w Contrast (11/26/2018 9:03 AM REGIONAL PSYCHIATRIC DIRECTOR) Anatomical Region Laterality Modality Lower Extremity, SUBRAD IR PROCEDURE, UMP CT CTA, RAD Computed Tomography CT Specimen (Source) Anatomical Location Collection Method / Collectio n Time Received Time / Laterality Volume Impressions 11/26/2018 4:44 PM REGIONAL PSYCHIATRIC DIRECTOR IMPRESSION: 1. New thoracic aortic endograft. Tandem areas of aneurysmal dilatation are relatively unchanged in s ize. No visible endoleak. Recommend annual surveillance. 2. Infrarenal abdominal aortic aneurysm measuring 4.6 x 4.6 cm, unchanged. 3. Somewhat irregular fluid collection i n left groin, likely postoperative seroma. Surrounding enlarg ed lymph nodes. TANNER STARKS MD Narrative 11/26/2018 4:44 PM REGIONAL PSYCHIATRIC DIRECTOR CTA CHEST, ABDOMEN AND PELVIS WITH CONTRAST [...] (ISOVUE-370) solution 80 Given 11/26/2018 8:30 AM REGIONAL PSYCHIATRIC DIRECTOR 80 mLs mL 80 mL, Intravenous, ONCE, On Thu11/26/18 at 0830, For 1 dose Saline Flush Given 11/26/2018 8:30 AM REGIONAL PSYCHIATRIC DIRECTOR 80 mLs Intravenous, 80 mL, ONCE, On [...] as of this encounter Care Teams Service Provider Relationship Specialty Start Date End Date [facility], [facility] PCP - General 05/12/[address] [place] [address] documented as of this encounter
--- OUTSIDE RECORDS SUMMARY | 2022-08-14 11:15 | XMS_ITS | Encounter Summary ---
:1940 Author Organization [place] Address [address] [facility] [place] [address] Care Team Providers Name Role Phone Clinic, [facility] Primary Care Provider [phone] Encounter Details Date Type Department Care Team Description 11/05/2018 Anesthesia Event [facility] Bart Feliciano [place] MD Interventional [facility] Radiology [address] [place] [address] [place] [id number] [phone] Anesthesia Record Procedure Summary Procedure Name Responsible [...] documented as of this encounter Care Teams Database Marketing Manager Relationship Specialty Start Date End Date Clinic, [facility] PCP - General 05/12/[address] [place] [address] documented as of this encounter
--- OUTSIDE RECORDS SUMMARY | 2022-08-14 11:15 | XMS_ITS | Encounter Summary ---
:1940 Author Organization [place] Address [address] [facility] [place] [address] Care Team Providers Name Role Phone [facility] Primary Care Provider [phone] Encounter Details Date Type Department Care Team Description 11/12/2018 Telephone [facility] Butch Brown MD [facility] [place] [address] [place] [address] [place] [id number] (Wo rk) Social History Tobacco Use Types [...] that f/u with Dr. Brown. Aruna Simmons, Consulting Systems Engineer T TICKETING GATE documented in this encounter Plan of Treatment Not on filedocumented as of this encounter Visit Diagnoses Not on filedocumented in this encounter Additional Health Concerns Infection Onset Date Last Indicated Resolved Time MRSAComment: Positive 02/17/11 and 09/22/12 11/05/2018 019 Negatives 05/03/14 (HE), 12/01/14 (HE) documented as of this encounter Care Teams Textile Pin Worker Relationship Specialty Start Date End Date [facility] PCP - General 05/12/[address] [place] [address] documented as of this encounter
--- OUTSIDE RECORDS SUMMARY | 2022-08-14 11:15 | XMS_ITS | Encounter Summary ---
:1940 Author Organization [place] Address [address] [place] [address] Care Team Providers Name Role Phone Kehinde Portillo Primary Care Provider [phone] Encounter Details Date Type Department Care Team [...] documented as of this encounter Care Teams Interior Decorator Paperhanging Relationship Specialty Start Date End Date [facility], Kehinde Santos PCP - General 05/12/[address] [place] [address] documented as of this encounter
--- OUTSIDE RECORDS SUMMARY | 2022-08-14 11:15 | XMS_ITS | Encounter Summary ---
:1940 Author Organization [place] Address [address] [place] [address] Care Team Providers Name Role Phone Clinic, [facility] Primary Care Provider [phone] Reason for Visit Reason Comments RECHECK History of thoracic aortic a neurysm without rupture; 6 month follow up to 11-26-[address] Brown Encounter Details Date Type Department Care Team Description 05/17/[address] 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 [place] [address] [place] [address] [phone] Social History Tobacco Use Types Packs/Day Years [...] lb (87.5 kg). Pain Score: Data Unavailable oVn Landeros Butch Brown MD - 05/17/2019 11:30 [...] aneurysms. The patient plans to go to [place] this fall and is back sometime in [...] previously covered. I spent 15 minutes of [id number] time, > 50% spent counseling and coordinating [...] as of this encounter Care Teams Supervisor Slate Splitting Relationship Specialty Start Date End Date [facility], [facility] PCP - General 05/12/17 [address] [place] [address] documented as of this encounter
--- OUTSIDE RECORDS SUMMARY | 2022-08-14 11:15 | XMS_ITS | Encounter Summary ---
:1940 Author Organization [place] Address [address] [facility] [place] [address] Care Team Providers Name Role Phone Clinic, [facility] Primary Care Provider [phone] Reason for Visit Diagnostic Imaging CT Scan (Routine) - Closed Specialty Diagnoses / Procedures Referred By Contact Refer red To Contact Radiology. Diagnoses Thoracic aortic aneurysm Butch Brown MD Ct Scan Procedures CT Chest Abdomen Pelvis w/o Contrast CTA Chest Abdomen Pelvis w Contrast [address] [place] [address] [place] [address] Referral ID Status Reason Start Date Expiration Date Visits Requ ested Visits Authorized [id number] Closed 11/26/2018 11/26/2019 1 1 Encounter Details Date Type Department Care Team Description 05/17/2019 Hospital Encounter [facility] Butch Brown Thor acic aortic [place] [facility] MD Pierre aneurysm (H) [address] [place] [address] [address] [place] [id number] Social History Tobacco Use Types Packs/Day Years [...] CDT 10:23 AM CDT Butch Brown MD [facility] Performing Organization Address [...] as of this encounter Care Teams Electrical Helper Relationship Specialty Start Date End Date [facility], [facility] PCP - General 05/12/[address] [place] [address] documented as of this encounter
--- OUTSIDE RECORDS SUMMARY | 2022-08-14 11:15 | XMS_ITS | Encounter Summary ---
:1940 Author Organization [place] Address [address] [place] [address] Care Team Providers Name Role Phone Kehinde Portillo Primary Care Provider [phone] Encounter Details Date Type Department Care Team [...] documented as of this encounter Care Teams Cigar Tobacco Rehandler Relationship Specialty Start Date End [facility] - [facility] [place] [address] documented as of this encounter
--- OUTSIDE RECORDS SUMMARY | 2022-08-14 11:15 | XMS_ITS | Encounter Summary ---
:1940 Author Organization [place] Address [address] [place] [address]. [place] [address] Care Team Providers Name Role Phone Clinic, [facility] Primary Care Provider [phone] Reason for Visit Surgical Procedure Inpatient (Routine) - Closed Specialty Diagnoses / Procedures Referred By Contact Refer red To Contact Vascular Surgery / Diagnoses DESCENDING THORACIC AORTIC ANEURYSM Juan Vásquez Brett Surgery Procedures *OR51*DR. VÁSQUEZ/DR. GARVIN*THORACIC ENDOVASCULAR ANEURYSM REPAIR WITH [facility] GRAFT MD Pierre Nava MD [address] [place] [address] [place] [address] Fax: Referral ID Status Reason Start Date Expiration Date Visits Requ ested Visits Authorized [id number] Closed 11/05/2018 11/05/2019 1 1 Encounter Details Date Type Department Care Team Description 11/05/2018 Office Visit [facility] Butch Garvin MD [address] [place] [address] Juan Vásquez MD [address] [place] [id number] Fellow, Sh Surg Cons Social History Tobacco [...] documented as of this encounter Care Teams Scrubber System Attendant Relationship Specialty Start Date End Date [facility] PCP - General 05/12/[address] [place] [address] documented as of this encounter
--- OUTSIDE RECORDS SUMMARY | 2022-08-14 11:15 | XMS_ITS | Encounter Summary ---
:1940 Author Organization [place] Address [address] [facility] [place] [address] Care Team Providers Name Role Phone Clinic, [facility] Primary Care Provider [phone] Reason for Visit Reason Comments RECHECK 1st PO; THORACIC ENDOVASCULA R ANEURYSM REPAIR WITH [facility]FT Encounter Details Date Type Department Care Team Description 11/26/2018 Office Visit [facility] Butch Brown Thoracic a ortic Vascular Clinic Félix Jay MD aneurysm without [address] ru pture (H) (Primary [address] Dx) [place] [address] [place] [address] Social History Tobacco Use Types Packs/Day Years [...] Comments Blood Pressure 146/70 11/26/2018 10:47 AM MEDIA/INSTRUCTIONAL DESIGNER Pulse 66 11/26/2018 10:47 AM MEDIA/INSTRUCTIONAL DESIGNER Temperature - - Respiratory Rate - - Oxygen Saturation - - Inhaled Oxygen Concentration - - Weight 87.5 kg (193 lb) 11/26/2018 10:47 AM MEDIA/INSTRUCTIONAL DESIGNER Height 167.6 cm (5' 6) 11/26/2018 10:47 AM MEDIA/INSTRUCTIONAL DESIGNER Body Mass Index 31.15 11/26/2018 10:47 AM MEDIA/INSTRUCTIONAL DESIGNER documented in this encounter Patient Instructions Patient InstructionsVon Landeros CMA - 11/26/2018 11:00 AM MEDIA/INSTRUCTIONAL DESIGNER Patient to follow up with Primary Care provider regarding elevated blood pressure. A/INSTRUCTIONAL DESIGNER documented in this encounter Progress Notes [...] kg). Pain Score: Data Unavailable Von Landeros A/INSTRUCTIONAL DESIGNER Butch Brown MD - 11/26/2018 11:00 [...] 5.0-5.5 cm. Butch Brown MD Vascular Surgery A/INSTRUCTIONAL DESIGNER documented in this encounter Plan of [...] documented as of this encounter Care Teams Agricultural Engineering Technicians Relationship Specialty Start Date End Date Kehinde Portillofield PCP - General 05/12/[address] [place], [place] [id number] documented as of this encounter
--- OUTSIDE RECORDS SUMMARY | 2022-08-14 11:16 | XMS_ITS | Encounter Summary ---
:1940 Author Organization [place] Address [address] [place] [address] Care Team Providers Name Role Phone [facility] [place] Primary Care Provider [phone] Encounter Details Date Type Department Care Team [...] on filedocumented in this encounter Care Teams Party Plan Salesperson Relationship Specialty Start Date End [facility] - [facility] 05/[facility] [place] [address] documented as of this encounter
--- OUTSIDE RECORDS SUMMARY | 2022-08-14 11:16 | XMS_ITS | Encounter Summary ---
:1940 Author Organization [facility] Address [address] [facility] [place] [address] Care Team Providers Name Role Phone [facility], [facility] Primary Care Provider [phone] Reason for Visit Auth/Cert Specialty Diagnoses / Procedures Referred By Contact Refer red To Contact Surgery Diagnoses DESCENDING THORACIC AORTIC ANEURYSM Sh Periop Services Procedures ENDOVASCULAR REPAIR ANEURYSM THORACIC AORTIC [address], [address] [place] [address] Phone: Referral ID Status Reason Start Date Expiration Date Visits Requ ested Visits Authorized [id number] 1 1 Encounter Details Date Type Department Care Team Description 11/05/2018 Surgery [facility] Juan Lewis THORACIC ENDOVASCULAR [place] PeriOP MD Elijah ANEURYSM REPAIR WITH Services [address] [employer] [address], [address] [place] [address] [place] [address] [phone] Surgery Details Date/Time Status Location OR Service [...] Comments Blood Pressure 159/88 11/05/2018 9:00 AM SEAFOOD CLERK Pulse 57 11/05/2018 9:00 AM SEAFOOD CLERK Temperature 36.7 ??C (98.1 ??F) 11/05/2018 6:27 AM SEAFOOD CLERK Respiratory Rate 21 11/05/2018 9:05 AM SEAFOOD CLERK Oxygen Saturation 100% 11/05/2018 9:05 AM SEAFOOD CLERK Inhaled Oxygen Concentration - - Weight 84.3 kg (185 lb 14.4 oz) 11/05/2018 6:27 AM SEAFOOD CLERK Height 167.6 cm (5' 6) 11/05/2018 6:27 AM SEAFOOD CLERK Body Mass Index 31.06 11/05/2018 6:27 AM SEAFOOD CLERK documented in this encounter Discharge Summaries Bessy Mccray MD - 11/09/2018 10:56 AM CST Physician Discharge Summary Patient ID: Speedy Hendricks [id number] 78 year old 1940 Admit date: 11/05/2018 [...] an oral diet. He was [facility] on POD[facility]4 in stable condition. Consults: [...] to. Signed: Bessy Mccray 11/09/2018 10:56 AM OOD CLERK Associated attestation - Juan Lewis MD - 11/11/2018 3:10 PM SEAFOOD CLERK Physician Attestation I, Juan Lewis, have reviewed [...] Traylor RN - 11/09/2018 11:47 AM CST OOD CLERK AttachmentsThe following attachments cannot be sent through Care Everywhere.(S) TREATING A THORACIC AORTIC ANEURYSM (TAA): ENDOVASCULAR GRAFT ([place]) documented in this encounter Medications at Time [...] home with family via car.All questions answered. OOD CLERK Gurwinder Godoy MD - 11/09/2018 12:02 PM CST [facility] Vascular Medicine Progress Note Date of Service (when I saw the patient): 11/09/2018 Physician Supervisory Attestation: I have reviewed and discussed with the physician quality assistant their history, physical and plan and [...] Discussed with vascular surgery service. Gurwinder Godoy MD,[facility] Vascular Medicine service 11/09/2018 Assessment & [...] Rate: 93 Resp: 22 SpO2: 93 % T9Onlxev: None (Room air) Vitals: 11/06/18 0211 11/07/18 [...] = values in this interval not displayed. OOD CLERK Bessy Mccray MD - 11/09/2018 7:36 AM [...] Bessy Martinez MD Vascular Surgery Fellow Pager OOD CLERK Associated attestation - Butch Brown MD - 11/16/2018 9:50 AM SEAFOOD CLERK I was involved with the assessment and plan, and I agree with the findings and plan of care as documented in the fellow's note. MD Wilfredo Castillo Carley, JOSE - 11/08/2018 6:35 PM CST Pt arrived to station 33 @ 1820 OOD CLERK Aura Crooks RN - 11/08/2018 5:05 PM CST Pt had drained removed this AM. Draining moderate amount- MDA aware. SR. BP wnl- gave hydralazine x1prn. Chapman to be removed prior to transfer. Lines out and hemostasis achieved. Up to chair- tolerated well, SBA. Frequent neuros- wnl. Will call report to [facility] and will transfer at . OOD CLERK Dimas Chapman MD - 11/08/2018 12:41 PM CST [facility] Vascular Medicine Progress Note Date [...] -- AST 19 -- -- -- -- OOD CLERK Bessy Mccray MD - 11/08/2018 8:18 AM [...] Bessy Martinez MD Vascular Surgery Fellow Pager OOD CLERK Associated attestation - Butch Brown MD - 11/16/2018 3:00 PM SEAFOOD CLERK I was involved with the assessment and plan, and I agree with the findings and plan of care as documented in the fellow's note. Butch DrakeMD Michael Steve William, NP - 11/08/2018 8:01 [...] drain tubing following [place]clamping[place] [id number] down from 100s yesterday. At this time, [...] Christina Burrell MD Vascular Surgery Fellow Pgr OOD CLERK Bishop Tran MD - 11/07/2018 11:55 AM CST Magazine Publisher: S: Mild groin pain this morning, but [...] Dr. Staley of vascular medicine at bedside. Magazine Publisher service will sign off for now. Please re-consult as needed. OOD CLERK Gurwinder Godoy MD - 11/07/2018 9:09 AM CST [facility] Vascular Medicine Progress Note Date [...] If any change in neuro status contact [facility] surgery first and consider neurocritical [...] good Reviewed last night events, discussed with Magazine Publisher and ICU nursing staff this am. Patients [...] . Avoid nephrotoxic meds. ?? Gurwinder Godoy MD,[facility] Vascular Medicine Interval History Reviewed last [...] 7.8* 8.6 -- GLC 115* 121* -- OOD CLERK Danette Peck RN - 11/07/2018 8:50 AM [...] to keep SBP <160 and MAP >80. OOD CLERK Gurwinder Godoy MD - 11/06/2018 12:00 PM CST [facility] Vascular Medicine Progress Note Date [...] . Avoid nephrotoxic meds. ?? Gurwinder Godoy MD,[facility] Vascular Medicine Interval History Reviewed last [...] 7.8* 8.6 -- GLC 115* 121* -- OOD CLERK Millie Handley APRN JUV[address] COURT JUDGE - 11/06/2018 11:55 AM CST Critical Care [...] Total critical care time today 35 min. OOD CLERK Associated attestation - Bishop Tran MD - 11/12/2018 10:50 AM SEAFOOD CLERK Physician Attestation I, Bishop Tran, have reviewed [...] sufficient urine. Continue plan as documented in [employer] [facility] note. The patient does not seem to [...] Christina Burrell MD Vascular Surgery Fellow Pgr OOD CLERK Danette Peck RN - 11/06/2018 9:15 AM CST 0845: While leveled, asleep and lying on L, SCP Increased to 15-23. I: opened drain for 5 min resulting in 2cc clear liquid. I: Clamped. E: SCP decreased to 14. Turned to R side, SCP 3-7. OOD CLERK Michelle Villalta - 11/05/2018 6:05 AM CST Admission medication history interview status for the 11/05/2018 admission is complete. See [facility] admission navigator for prior to admission medications Medication history source reliability:Good Medication history interview source(s):Patient Medication history resources (including written lists, pill bottles, clinic record):Patient mailed in his medication list prior to surgery Primary pharmacy.[facility] Additional medication history information not noted on CHANNEL MARKETING MANAGER med list :None Time spent in [...] Bedtime 11/04/2018 at 2200 Yes Reported, Patient OOD CLERK documented in this encounter Procedure Notes Missael [...] management per anethesia/vasc surg Missael Garcia MD [phone] OOD CLERK documented in this encounter Consult Notes Kaleb Rodriguez NP - 11/05/2018 5:14 PM CSTAssociated Order(s): TEXTILE CONVERSION MANAGER IP CONSULT [facility] Consult Critical Care Service Date [...] Code Status Full Code [facility] Chief Complaint S/p TEVAR History of [...] IR Lumbar Drain Placement w Fluoro Narrative [facility] RADIOLOGY INTERVENTIONAL NEURORADIOLOGY PROCEDURAL NOTE [...] CPT codes included for physician reference only: 78106/74031 MISSAEL GARCIA MD Glucose by meter Result Value Ref Range Glucose 124 (H) 70 - 99 mg/dL OOD CLERK Associated attestation - Olive Bello MD - 11/05/2018 10:58 PM SEAFOOD CLERK ICU STAFF: I have discussed Mr. Hendricks's [...] Godoy MD - 11/05/2018 1:40 PM CST [facility] Vascular Medicine Consultation Date of Admission: 11/05/2018 Date of Consult (When I saw the patient): 11/05/18 Physician Supervisory Attestation: I have reviewed and discussed with the physician quality assistant their history, physical and plan and [...] consult Copy to Dr. Debbie Godoy MD ,[facility] Vascular Medicine 11/05/2018 Assessment & Plan [...] 78 year old male Primary Care Physician [facility] History of Present Illness Speedy [...] Labs Lab Test 11/05/18 0655 A1C 5.2 OOD CLERK documented in this encounter Nursing Notes Iiss Rivera, JOSE - 11/05/2018 8:40 AM CST Noted swelling left ankle OOD CLERK documented in this encounter Miscellaneous Notes Plan of Care - Maria C Dunbar RN - 11/09/2018 7:00 AM CST Neuro exams WDL. VSS, BPs elevated in 160's last larueen, trended galina to 120's systolic this am. [...] sites soft, bruised, CMS intact. Voiding okay. OOD CLERK Plan of Care - Misty Villalobos RN - 11/08/2018 7:10 PM CST A/O x4. AVSS on RA. Tele NSR. Hydralazine given x1. Up SBA. Neuros intact. CMS intact. Groin sites, steri strips. Back site, moist drainage. Pulses, palpable, +2. Regular diet. Chapman removed at 1740, Due to void. OOD CLERK Provider Notification - Aura Crooks RN - 11/08/2018 11:37 AM CST MD NOTIFICATION Person Notified: MDA Notified Person's Name: Yeimi Notification Date/Time: 11/08/2017 1135 Notification Interaction: Paged physician Purpose of Notification: Pt remains to have drainage from lumbar drain site. Orders Received: MDA to come assess pt. OOD CLERK Plan of Care - Kristy Castañeda RN [...] access readiness for lumbar drain removal today. OOD CLERK Provider Notification - Kristy Castañeda RN - [...] assess pulling the drain. Kristy Castañeda RN OOD CLERK Plan of Care - Aura Crooks, JOSE - 11/07/2018 6:17 PM CST Neuro: LUCAS- strength /. PERRL. Complains of soreness in groin/hips from moving them too much. Ptup in chair for a hour and tolerated well. Ok'd with Anesthesia MD, [place], to get up in chair forno more [...] some blood in tubing- Anesthesia MD aware. OOD CLERK Plan of Care - Danette Peck RN - 11/07/2018 1:12 PM CST [id number] Continued with numbness bilateral top of thighs. [...] and dtr in room when Drs here. OOD CLERK Provider Notification - Ramiro Lozano RN - 11/07/2018 6:17 AM CST Paged vascular surgery fellow Ashanti regarding new numbness to anterior thighs. CSF has been drained, will begin 500ml bolus unless directed otherwise. OOD CLERK Plan of Care - Ramiro Lozano RN [...] clamped now. Daughter Raquel updated this morning. OOD CLERK Provider Notification - Ramiro Lozano RN - 11/07/2018 5:[address] Wang regarding new leg pain and ICP increase. Opening drain for 15ml CSF over 1 hr per order. OOD CLERK Plan of Care - Danette Peck RN - 11/06/2018 4:34 PM CST [id number] Neuro checks remain intact. Able to move [...] be retested for MRSA per infection control. OOD CLERK Plan of Care - Ramiro Lozano RN [...] this shift. Daughter Raquel updated this morning. OOD CLERK Plan of Care - Danette Peck RN - 11/05/2018 9:43 PM CST [id number] Neuro: intact. Able to move hips slightly [...] by physicians. Care transferred to next nurse. OOD CLERK Provider Notification - Ramiro Lozano RN - 11/05/2018 7:46 PM CST Notified hoop expander regarding failure to meet MAP goal of 80, new orders received. OOD CLERK Op Note - Butch Brown MD - [...] descending aortic angiogram SURGEON: Butch Brown MD TATTOO AND BODY ARTIST: Kannan Morse MD; Bessy Mas MD - [...] then able to upsized to a 6 Slovenian sheath over a Bentson wire.The patient was [...] femoral artery and upsized to an 11 Slovenian sheath. We then able to insert JULIANE [...] was removed and backfilled with a 16 Slovenian dry seal on the left.At this point [...] superficial femoral artery access which was 6 Slovenian sheath with an Angio-Seal closure device performed [...] the drain. Butch Brown MD Vascular Surgery OOD CLERK Brief Op Note - Bessy Mccray MD - 11/05/2018 12:29 PM CST [facility] Brief Operative Note Pre-operative diagnosis: DESCENDING THORACIC AORTIC ANEURYSM Post-operative diagnosis same Procedure: Procedure(s): THORACIC ENDOVASCULAR ANEURYSM REPAIR WITH [employer]TRONIC GRAFT Surgeon: Surgeon(s) and Role: * Juan Lewis MD - Primary * Buthc Brown MD - Assisting * Bessy Mccray [...] Palp DP bilaterally Complications: None. Implants: None. OOD CLERK Associated attestation - Butch Brown MD - 11/05/2018 1:09 PM SEAFOOD CLERK Butch Brown MD IR Note - Gwen Rivas RN - 11/05/2018 10:27 AM CST Interventional Radiology Intra-procedural Nursing Note Patient Name: Speedy Hendricks Today's Date: November 05, 2018 Start Time: 849 End of procedure time: 904 Procedure: lumbar drain placement Report given to: Dr. See, anesthesia Time pt departs: 919 Mixing Operator: n/a Other Notes: patient tolerated well. Drain connected to closed drainage system flushed with preservative free NS per Dr. Haro. 1mg Versed and 50mcg Fentanyl IV given for additional sedation (had received 4mg Versed and 100mcg Fentanyl in pre-op prior to arrival). SR on monitor .VSS. Patient taken back to pre-op bay in stable condition. Gwen Rivas, reed maker Radiology OOD CLERK documented in this encounter Plan of Treatment Not on filedocumented as of this encounter Procedures Procedure Name Priority Date/Time Associated Comments Diagnosis CBC WITH PLATELETS & Routine 11/09/2018 7:41 AM Descending tho racic Results for this DIFFERENTIAL SEAFOOD CLERK aortic aneurysm (H) procedur e are in the results section. COMPREHENSIVE Routine 11/09/2018 7:41 AM Descending thoracic R esults for this METABOLIC PANEL SEAFOOD CLERK aortic aneurysm (H) proce dure are in the results section. MAGNESIUM Routine 11/08/2018 3:40 AM Descending thoracic Re sults for this SEAFOOD CLERK aortic aneurysm (H) procedur e are in the results section. COMPREHENSIVE Routine 11/08/2018 3:40 AM Descending thoracic R esults for this METABOLIC PANEL SEAFOOD CLERK aortic aneurysm (H) proce dure are in the results section. CBC WITH PLATELETS Routine 11/08/2018 3:40 AM Descending thora cic Results for this SEAFOOD CLERK aortic aneurysm (H) procedur e are in the results section. CBC WITH PLATELETS STAT 11/07/2018 3:00 PM Descending thora cic Results for this SEAFOOD CLERK aortic aneurysm (H) procedur e are in the results section. CBC WITH PLATELETS & Timed 11/07/2018 9:50 AM Descending tho racic Results for this DIFFERENTIAL SEAFOOD CLERK aortic aneurysm (H) procedur e are in the results section. MAGNESIUM Routine 11/07/2018 9:50 AM Descending thoracic Re sults for this SEAFOOD CLERK aortic aneurysm (H) procedur e are in the results section. BASIC METABOLIC PANEL Timed 11/07/2018 9:50 AM Descending th oracic Results for this SEAFOOD CLERK aortic aneurysm (H) procedur e are in the results section. GLUCOSE BY METER Routine 11/07/2018 7:44 AM Descending thoraci c Results for this SEAFOOD CLERK aortic aneurysm (H) procedur e are in the results section. GLUCOSE BY METER Routine 11/07/2018 3:49 AM Descending thoraci c Results for this SEAFOOD CLERK aortic aneurysm (H) procedur e are in the results section. GLUCOSE BY METER Routine 11/07/2018 12:08 Descending thoracic Results for this AM SEAFOOD CLERK aortic aneurysm (H) procedur e are in the results section. GLUCOSE BY METER Routine 11/06/2018 7:53 PM Descending thoraci c Results for this SEAFOOD CLERK aortic aneurysm (H) procedur e are in the results section. GLUCOSE BY METER Routine 11/06/2018 11:02 Descending thoracic Results for this AM SEAFOOD CLERK aortic aneurysm (H) procedur e are in the results section. GLUCOSE BY METER Routine 11/06/2018 7:38 AM Descending thoraci c Results for this SEAFOOD CLERK aortic aneurysm (H) procedur e are in the results section. LACTIC ACID WHOLE Routine 11/06/2018 4:15 AM Descending thorac ic Results for this BLOOD SEAFOOD CLERK aortic aneurysm (H) procedur e are in the results section. BASIC METABOLIC PANEL Routine 11/06/2018 4:15 AM Descending th oracic Results for this SEAFOOD CLERK aortic aneurysm (H) procedur e are in the results section. CBC WITH PLATELETS Routine 11/06/2018 4:15 AM Descending thora cic Results for this SEAFOOD CLERK aortic aneurysm (H) procedur e are in the results section. GLUCOSE BY METER Routine 11/06/2018 1:12 AM Descending thoraci c Results for this SEAFOOD CLERK aortic aneurysm (H) procedur e are in the results section. MRSA MSSA PCR, NASAL STAT 11/05/2018 11:41 Descending thora cic Results for this SWAB PM SEAFOOD CLERK aortic aneurysm (H) procedur e are in the results section. GLUCOSE BY METER Routine 11/05/2018 8:16 PM Descending thoraci c Results for this SEAFOOD CLERK aortic aneurysm (H) procedur e are in the results section. GLUCOSE BY METER Routine 11/05/2018 4:39 PM Descending thoraci c Results for this SEAFOOD CLERK aortic aneurysm (H) procedur e are in the results section. INR STAT 11/05/2018 4:35 PM Descending thoracic Re sults for this SEAFOOD CLERK aortic aneurysm (H) procedur e are in the results section. LACTIC ACID WHOLE STAT 11/05/2018 4:35 PM Descending thorac ic Results for this BLOOD SEAFOOD CLERK aortic aneurysm (H) procedur e are in the results section. BASIC METABOLIC PANEL STAT 11/05/2018 4:35 PM Descending th oracic Results for this SEAFOOD CLERK aortic aneurysm (H) procedur e are in the results section. CBC WITH PLATELETS STAT 11/05/2018 4:35 PM Descending thora cic Results for this SEAFOOD CLERK aortic aneurysm (H) procedur e are in the results section. IR THORACIC Routine 11/05/2018 12:09 Descending thoracic Resu lts for this ENDOVASCULAR STENT PM SEAFOOD CLERK aortic aneurysm (H) pr ocedure are in GRAFT the results section. REPAIR, ANEURYSM, 11/05/2018 9:35 AM DESCENDING THORAC IC THORACIC AORTIC, SEAFOOD CLERK AORTIC ANEURYSM ENDOVASCULAR Special Needs BLOOD TRANSFUSION ISSUE (RAR E ANTIBODIES) PT WILL DO A TYPE AND CROSS ON 11/03 JALEEL 10/28 IR LUMBAR DRAIN Routine 11/05/2018 9:10 AM Result s for this PLACEMENT W FLUORO SEAFOOD CLERK procedure are in the results section. EKG 12-LEAD, TRACING STAT 11/05/2018 6:58 AM R esults for this ONLY SEAFOOD CLERK procedure are i n the results section. POTASSIUM STAT 11/05/2018 6:55 AM Descending thoracic Re sults for this SEAFOOD CLERK aortic aneurysm (H) procedur e are in the results section. LIPID PROFILE STAT 11/05/2018 6:55 AM Descending thoracic R esults for this SEAFOOD CLERK aortic aneurysm (H) procedur e are in the results section. HEMOGLOBIN A1C STAT 11/05/2018 6:55 AM Descending thoracic Results for this SEAFOOD CLERK aortic aneurysm (H) procedur e are in the results section. CREATININE STAT 11/05/2018 6:55 AM Descending thoracic Re sults for this SEAFOOD CLERK aortic aneurysm (H) procedur e are in the results section. XR CHEST PORT 1 VIEW STAT 11/05/2018 6:40 AM R esults for this SEAFOOD CLERK procedure are i n the results section. EKG CARDIAC - HIM 09/24/2018 12:00 AM SCAN SEAFOOD CLERK documented in this encounter Results (ABNORMAL) CBC with platelets differential (11/09/2018 7:41 AM [facility]) Component Value Ref Test Analysis Performed At [facility] gist Range Method Time Signature WBC 9.3 4.0 - 11/09/2018 [facility] 11.0 8:06 AM [facility] 10e9/L [facility] RBC Count 3.55 (L) 4.4 - 11/09/2018 [facility] 5.9 8:06 AM [facility] 10e12/L [facility] Hemoglobin 11.3 (L) 13.3 - 11/09/2018 [facility] 17.7 8:06 AM [facility] g/dL [facility] Hematocrit 33.7 (L) 40.0 - 11/09/2018 [facility] 53.0 % 8:06 AM [facility] MCV 95 78 - 100 11/09/2018 [facility] fl 8:06 AM [facility] MCH 31.8 26.5 - 11/09/2018 [facility] 33.0 pg 8:06 AM [facility] MCHC 33.5 31.5 - 11/09/2018 [facility] 36.5 8:06 AM [facility] g/dL [facility] RDW 13.9 10.0 - 11/09/2018 [facility] 15.0 % 8:06 AM [facility] Platelet Count 83 (L) 150 - 11/09/2018 [facility] 450 8:[address] Diff Method Manual 11/09/2018 [facility] Differential 8:31 AM [facility] % Neutrophils 85.0 % 11/09/2018 [facility] 8:31 AM [facility] % Lymphocytes 6.0 % 11/09/2018 [facility] 8:31 AM [facility] % Monocytes 7.0 % 11/09/2018 [facility] 8:31 AM [facility] % Eosinophils 2.0 % 11/09/2018 [facility] 8:31 AM [facility] % Basophils 0.0 % 11/09/2018 [facility] 8:31 AM [facility] Absolute 7.9 1.6 - 11/09/2018 [facility] Neutrophil 8.3 8:[address] Absolute 0.6 (L) 0.8 - 11/09/2018 [facility] Lymphocytes 5.3 8:[address] Absolute 0.7 0.0 - 11/09/2018 [facility] Monocytes 1.3 8:[address] Absolute 0.2 0.0 - 11/09/2018 [facility] Eosinophils 0.7 8:[address] Absolute 0.0 0.0 - 11/09/2018 [facility] Basophils 0.2 8:[address] RBC Morphology Consistent with 11/09/2018 [facility] reported results 8:31 AM [facility] Platelet Automated count 11/09/2018 [facility] Estimate confirmed. 8:31 AM [facility] morphology is normal. Specimen Anatomical Collection Method Collection Time Receive d Time (Source) Location / / Volume Laterality Blood specimen 11/09/2018 7:41 AM 019 7:51 (specimen) SEAFOOD CLERK AM SEAFOOD CLERK Dimas Chapman MD LAB - BLOOD ORDERABLES Performing Organization Address City/State/ZIP Code Phon e Number M [facility] [address] [place] [address] [phone] [facility] [address] [place] [address], U [phone] (ABNORMAL) Comprehensive metabolic panel (11/09/2018 7:41 AM SEAFOOD CLERK) athologist Signature Sodium 144 133 - 144 11/09/2018 [place] mmol/L 8:11 AM [facility] Potassium 4.0 3.4 - 5.3 11/09/2018 [place] mmol/L 8:11 AM [facility] Chloride 113 (H) 94 - 109 11/09/2018 [place] mmol/L 8:11 AM [facility] Carbon Dioxide 22 20 - 32 11/09/2018 [place] mmol/L 8:17 AM [facility] Anion Gap 9 3 - 14 11/09/2018 [place] mmol/L 8:17 AM [facility] Glucose 94 70 - 99 11/09/2018 [place] mg/dL 8:17 AM [facility] Urea Nitrogen 21 7 - 30 11/09/2018 [place] mg/dL 8:17 AM [facility] Creatinine 1.24 0.66 - 11/09/2018 [place] 1.25 mg/dL 8:17 AM [facility] GFR Estimate 56 (L) >60 11/09/2018 [place] mL/min/{1. 8:17 AM [facility] 73_m2} HOSPITAL Comment: Non GFR Calc Starting 10/05/2018, serum creatinine ba sed estimated GFR (eGFR) will be calculated using the Chronic Kidney Dise ase Epidemiology Collaboration (CKD-EPI) equation. GFR Estimate If 65 >60 mL/min/{1.73_m2} 11/09/2018 8: 17 AM [facility] Comment: GFR Calc Starting 10/05/2018, serum creatinine ba sed estimated GFR (eGFR) will be calculated using the Chronic Kidney Dise ase Epidemiology Collaboration (CKD-EPI) equation. Calcium 8.4 (L) 8.5 - 10.1 11/09/2018 8:17 AM [facility] mg/dL [facility] Bilirubin Total 1.3 0.2 - 1.3 mg/dL 11/09/2018 8:[address] [facility] Albumin 2.4 (L) 3.4 - 5.0 g/dL 11/09/2018 8:19 AM [facility] Protein Total 6.2 (L) 6.8 - 8.8 g/dL 11/09/2018 8:19 AM [facility] Alkaline Phosphatase 72 40 - 150 U/L 11/09/2018 8:[address] [facility] ALT 17 0 - 70 U/L 11/09/2018 8:19 AM [facility] AST 15 0 - 45 U/L 11/09/2018 8:19 AM [facility] Specimen Anatomical Collection Method Collection Time Receive d Time (Source) Location / / Volume Laterality Blood specimen 11/09/2018 7:41 AM 019 7:51 (specimen) SEAFOOD CLERK AM SEAFOOD CLERK Dimas Chapman MD LAB - BLOOD ORDERABLES Performing Organization Address City/State/ZIP Code Phon e Number M [facility] [address] [address] [phone] [facility] [address] [address], [facility] [phone] Magnesium Level scheduled every Thu Wed Thu (11/08/2018 3:40 AM SEAFOOD CLERK) P athologist Signature Magnesium 1.7 1.6 - 2.3 11/08/2018 [place] mg/dL 4:06 AM [facility] Specimen Anatomical Collection Method Collection Time Receive d Time (Source) Location / / Volume Laterality Blood specimen 11/08/2018 3:40 AM 019 3:46 (specimen) SEAFOOD CLERK AM SEAFOOD CLERK Dimas Chapman MD LAB - BLOOD ORDERABLES Performing Organization Address City/State/ZIP Code Phon e Number M [facility] [address] [address] [phone] [facility] [address], [place] [address], U [phone] (ABNORMAL) Comprehensive metabolic panel (11/08/2018 3:40 AM [facility]) Analysis Performed At Patho logist Time Signature Sodium 142 133 - 144 11/08/2018 [place] mmol/L 3:58 AM [facility] Potassium 4.2 3.4 - 5.3 11/08/2018 [facility] mmol/L 3:58 AM [facility] Chloride 111 (H) 94 - 109 11/08/2018 [place] mmol/L 3:58 AM [facility] Carbon Dioxide 22 20 - 32 11/08/2018 [place] mmol/L 4:04 AM [facility] Anion Gap 9 3 - 14 11/08/2018 [place] mmol/L 4:04 AM [facility] Glucose 164 (H) 70 - 99 11/08/2018 [place] mg/dL 4:04 AM [facility] Urea Nitrogen 20 7 - 30 11/08/2018 [place] mg/dL 4:04 AM [facility] Creatinine 1.29 (H) 0.66 - 11/08/2018 [place] 1.25 mg/dL 4:04 AM [facility] GFR Estimate 53 (L) >60 11/08/2018 [place] mL/min/{1. 4:04 AM [facility] 73_m2} HOSPITAL Comment: Non GFR Calc Starting 10/05/2018, serum creatinine ba sed estimated GFR (eGFR) will be calculated using the Chronic Kidney Dise [facility] Epidemiology Collaboration (CKD-EPI) equation. GFR Estimate If 62 >60 mL/min/{1.73_m2} 11/08/2018 4: 04 AM [facility] Comment: GFR Calc Starting 10/05/2018, serum creatinine ba sed estimated GFR (eGFR) will be calculated using the Chronic Kidney Dise [facility] Epidemiology Collaboration (CKD-EPI) equation. Calcium 8.2 (L) 8.5 - 10.1 11/08/2018 4:04 AM [place] mg/dL [facility] Bilirubin Total 1.1 0.2 - 1.3 mg/dL 11/08/2018 4:[address] [facility] Albumin 2.6 (L) 3.4 - 5.0 g/dL 11/08/2018 4:06 AM [facility] Protein Total 6.0 (L) 6.8 - 8.8 g/dL 11/08/2018 4:06 AM [facility] Alkaline Phosphatase 62 40 - 150 U/L 11/08/2018 4:[address] [facility] ALT 18 0 - 70 U/L 11/08/2018 4:06 AM [facility] AST 19 0 - 45 U/L 11/08/2018 4:06 AM [facility] Specimen Anatomical Collection Method Collection Time Receive d Time (Source) Location / / Volume Laterality Blood specimen 11/08/2018 3:40 AM 019 3:46 (specimen) SEAFOOD CLERK AM [facility] Gurwinder Godoy MD LAB - BLOOD ORDERABLES Performing Organization Address City/State/ZIP Code Phon e Number M [facility] [address] [address] [facility] [address] [address], U [phone] (ABNORMAL) CBC (AM Draw) (11/08/2018 3:40 AM SEAFOOD CLERK) Analysis Performed At Patho logist Time Signature WBC 11.2 (H) 4.0 - 11.0 11/08/2018 [place] 10e9/L 3:50 AM [facility] RBC Count 3.62 (L) 4.4 - 5.9 11/08/2018 [facility] 10e12/L 3:50 AM [facility] Hemoglobin 11.6 (L) 13.3 - 11/08/2018 [facility] 17.7 g/dL 3:50 AM [facility] Hematocrit 34.5 (L) 40.0 - 11/08/2018 [facility] 53.0 % 3:50 AM [facility] MCV 95 78 - 100 11/08/2018 [facility] fl 3:50 AM [facility] MCH 32.0 26.5 - 11/08/2018 [facility] 33.0 pg 3:50 AM [facility] MCHC 33.6 31.5 - 11/08/2018 [facility] 36.5 g/dL 3:50 AM [facility] RDW 13.9 10.0 - 11/08/2018 [facility] 15.0 % 3:50 AM [facility] Platelet Count 82 (L) 150 - 450 11/08/2018 [place] 10e9/L 3:50 AM [facility] Specimen Anatomical Collection Method Collection Time Receive d Time (Source) Location / / Volume Laterality Blood specimen 11/08/2018 3:40 AM 019 3:46 (specimen) SEAFOOD CLERK AM SEAFOOD CLERK Gurwinder Godoy MD LAB - BLOOD ORDERABLES Performing Organization Address City/State/ZIP Code Phon e Number [facility] [address] [address] [phone] [facility] [address] [address], [facility] [phone] (ABNORMAL) CBC with platelets (11/07/2018 3:00 PM SEAFOOD CLERK) Analysis Performed At Patho logist Time Signature WBC 11.1 (H) 4.0 - 11.0 11/07/2018 [place] 10e9/L 3:08 PM [facility] RBC Count 3.74 (L) 4.4 - 5.9 11/07/2018 [facility] 10e12/L 3:08 PM [facility] Hemoglobin 11.9 (L) 13.3 - 11/07/2018 [facility] 17.7 g/dL 3:08 PM [facility] Hematocrit 35.4 (L) 40.0 - 11/07/2018 [facility] 53.0 % 3:08 PM [facility] MCV 95 78 - 100 11/07/2018 [facility] fl 3:08 PM [facility] MCH 31.8 26.5 - 11/07/2018 [facility] 33.0 pg 3:08 PM [facility] MCHC 33.6 31.5 - 11/07/2018 [facility] 36.5 g/dL 3:08 PM [facility] RDW 14.1 10.0 - 11/07/2018 [facility] 15.0 % 3:08 PM [facility] Platelet Count 87 (L) 150 - 450 11/07/2018 [place] 10e9/L 3:08 PM [facility] Specimen Anatomical Collection Method Collection Time Receive d Time (Source) Location / / Volume Laterality Blood specimen 11/07/2018 3:00 PM 019 3:05 (specimen) SEAFOOD CLERK PM SEAFOOD CLERK Bart Feliciano MD LAB - BLOOD ORDERABLES Performing Organization Address City/State/ZIP Code Phon e Number [facility] [address] [place] [address] [facility] [address] [place] [address], [place] [phone] Magnesium (11/07/2018 9:50 AM SEAFOOD CLERK) P athologist Signature Magnesium 1.6 1.6 - 2.3 11/07/2018 [place] mg/dL 11:12 AM [facility] Specimen Anatomical Collection Method Collection Time Receive d Time (Source) Location / / Volume Laterality 11/07/2018 9:50 AM 9 SEAFOOD CLERK 10:04 AM SEAFOOD CLERK Gurwinder Godoy MD LAB - BLOOD ORDERABLES Performing Organization Address City/State/ZIP Code Phon e Number [facility] [address] [place] [address] [phone] [facility] [address] [place] [address], [place] [phone] (ABNORMAL) CBC with platelets differential (11/07/2018 9:50 AM SEAFOOD CLERK) Patholo gist Method Time Signature WBC 10.4 4.0 - 11/07/2018 [place] 11.0 10:13 AM [facility] 10e9/L [facility] RBC Count 3.63 (L) 4.4 - 5.9 11/07/2018 [facility] 10e12/L 10:13 AM [facility] Hemoglobin 11.5 (L) 13.3 - 11/07/2018 [facility] 17.7 g/dL 10:13 AM [facility] Hematocrit 34.3 (L) 40.0 - 11/07/2018 [facility] 53.0 % 10:13 AM [facility] MCV 95 78 - 100 11/07/2018 [facility] fl 10:13 AM [facility] MCH 31.7 26.5 - 11/07/2018 [facility] 33.0 pg 10:13 AM [facility] MCHC 33.5 31.5 - 11/07/2018 [facility] 36.5 g/dL 10:13 AM [facility] RDW 14.0 10.0 - 11/07/2018 [facility] 15.0 % 10:13 AM [facility] Platelet Count 82 (L) 150 - 450 11/07/2018 [facility] 10e9/L 10:37 AM [facility] Diff Method Automated 11/07/2018 [facility] Method 10:37 AM [facility] % Neutrophils 78.8 % 11/07/2018 [facility] 10:37 AM [facility] % Lymphocytes 6.2 % 11/07/2018 [facility] 10:37 AM [facility] % Monocytes 14.7 % 11/07/2018 [facility] 10:37 AM [facility] % Eosinophils 0.2 % 11/07/2018 [facility] 10:37 AM [facility] % Basophils 0.0 % 11/07/2018 [facility] 10:37 AM [facility] % Immature 0.1 % 11/07/2018 [facility] Granulocytes 10:37 AM [facility] Nucleated RBCs 0 0 /100 11/07/2018 [facility] 10:37 AM [facility] Absolute 8.2 1.6 - 8.3 11/07/2018 [facility] Neutrophil 10e9/L 10:37 AM [facility] Absolute 0.6 (L) 0.8 - 5.3 11/07/2018 [facility] Lymphocytes 10e9/L 10:37 AM [facility] Absolute 1.5 (H) 0.0 - 1.3 11/07/2018 [facility] Monocytes 10e9/L 10:37 AM [facility] Absolute 0.0 0.0 - 0.7 11/07/2018 [facility] Eosinophils 10e9/L 10:37 AM [facility] Absolute 0.0 0.0 - 0.2 11/07/2018 [facility] Basophils 10e9/L 10:37 AM [facility] Abs Immature 0.0 0 - 0.4 11/07/2018 [place] Granulocytes 10e9/L 10:37 AM [facility] Absolute 0.0 11/07/2018 [facility] Nucleated RBC 10:37 AM [facility] Ovalocytes Slight 11/07/2018 [facility] 10:37 AM [facility] Platelet Automated 11/07/2018 [place] Estimate count 10:37 AM [facility] confirmed. [facility] Platelet morphology is normal. Specimen Anatomical Collection Method Collection Time Receive d Time (Source) Location / / Volume Laterality Blood specimen 11/07/2018 9:50 AM 019 (specimen) SEAFOOD CLERK 10:04 AM [facility] Gurwinder Godoy MD LAB - BLOOD ORDERABLES Performing Organization Address City/State/ZIP Code Phon e Number M [facility] [address] [address] [phone] [facility] [address] [place] [address], [place] [phone] (ABNORMAL) Basic metabolic panel (11/07/2018 9:50 AM [facility]) Analysis Performed At Patho logist Time Signature Sodium 147 (H) 133 - 144 11/07/2018 [place] mmol/L 10:16 AM [facility] Potassium 4.1 3.4 - 5.3 11/07/2018 [place] mmol/L 10:16 AM [facility] Chloride 117 (H) 94 - 109 11/07/2018 [place] mmol/L 10:16 AM [facility] Carbon Dioxide 20 20 - 32 11/07/2018 [place] mmol/L 10:23 AM [facility] Anion Gap 10 3 - 14 11/07/2018 [place] mmol/L 10:23 AM [facility] Glucose 108 (H) 70 - 99 11/07/2018 [facility] mg/dL 10:23 AM [facility] Urea Nitrogen 23 7 - 30 11/07/2018 [place] mg/dL 10:23 AM [facility] Creatinine 1.47 (H) 0.66 - 11/07/2018 [facility] 1.25 mg/dL 10:23 AM [facility] GFR Estimate 46 (L) >60 11/07/2018 [place] mL/min/{1. 10:23 AM [facility] 73_m2} HOSPITAL Comment: Non GFR Calc Starting 10/05/2018, serum creatinine ba sed estimated GFR (eGFR) will be calculated using the Chronic Kidney Dise [facility] Epidemiology Collaboration (CKD-EPI) equation. GFR Estimate If 53 (L) >60 mL/min/{1.73_m2} 11/07/2018 10 :23 AM [place] Black [facility] Comment: GFR Calc Starting 10/05/2018, serum creatinine ba sed estimated GFR (eGFR) will be calculated using the Chronic Kidney Dise [facility] Epidemiology Collaboration (CKD-EPI) equation. Calcium 8.2 (L) 8.5 - 10.1 mg/dL 11/07/2018 10:23 AM [facility] Specimen Anatomical Collection Method Collection Time Receive d Time (Source) Location / / Volume Laterality Blood specimen 11/07/2018 9:50 AM 019 (specimen) SEAFOOD CLERK 10:04 AM SEAFOOD CLERK Gurwinder Godoy MD LAB - BLOOD ORDERABLES Performing Organization Address City/State/ZIP Code Phon e Number M [facility] [address] [address] [facility] [address] [address], [facility] [phone] (ABNORMAL) Glucose by meter (11/07/2018 7:44 AM SEAFOOD CLERK) P athologist Signature Glucose 112 (H) 70 - 99 11/07/2018 [facility] mg/dL 7:56 AM SEAFOOD CLERK TEST, GLUCOSE Specimen Anatomical Collection Method Collection Time Receive d Time (Source) Location / / Volume Laterality 11/07/2018 7:44 AM 9 7:56 SEAFOOD CLERK AM SEAFOOD CLERK Juan Lewis MD LAB - BEAKER POCT Performing Organization Address City/State/ZIP Code Phon e Number [facility] POINT OF CARE TEST, GLUCOSE POINT OF CARE TEST, GLUCOSE (ABNORMAL) Glucose by meter (11/07/2018 3:49 AM SEAFOOD CLERK) P athologist Signature Glucose 105 (H) 70 - 99 11/07/2018 [facility] mg/dL 4:01 AM SEAFOOD CLERK TEST, GLUCOSE Specimen Anatomical Collection Method Collection Time Receive d Time (Source) Location / / Volume Laterality 11/07/2018 3:49 AM 9 4:01 SEAFOOD CLERK AM SEAFOOD CLERK Juan Lewis MD LAB - BEFOUZIA POCT Performing Organization Address City/[facility]/ZIP Code Phon e Number [facility] POINT OF CARE TEST, GLUCOSE POINT OF CARE TEST, GLUCOSE (ABNORMAL) Glucose by meter (11/07/2018 12:08 AM SEAFOOD CLERK) P athologist Signature Glucose 119 (H) 70 - 99 11/07/2018 [facility] mg/dL 12:19 AM SEAFOOD CLERK TEST, GLUCOSE Specimen Anatomical Collection Method Collection Time Receive d Time (Source) Location / / Volume Laterality 11/07/2018 12:08 11/07/2018 AM SEAFOOD CLERK 12:19 AM SEAFOOD CLERK Juan YUAN - CAROLYN POCT Performing Organization Address [facility] Code Phon e Number [facility] POINT OF CARE TEST, GLUCOSE POINT OF CARE TEST, GLUCOSE (ABNORMAL) Glucose by meter (11/06/2018 7:53 PM SEAFOOD CLERK) P athologist Signature Glucose 116 (H) 70 - 99 11/06/2018 [facility] mg/dL 8:04 PM SEAFOOD CLERK TEST, GLUCOSE Specimen Anatomical Collection Method Collection Time Receive d Time (Source) Location / / Volume Laterality 11/06/2018 7:53 PM 9 8:04 SEAFOOD CLERK PM SEAFOOD CLERK Juan YUAN - CAROLYN POCT Performing Organization Address City/[facility] Code Phon e Number [facility] POINT OF CARE TEST, GLUCOSE POINT OF CARE TEST, GLUCOSE (ABNORMAL) Glucose by meter (11/06/2018 11:02 AM SEAFOOD CLERK) P athologist Signature Glucose 109 (H) 70 - 99 11/06/2018 [facility] mg/dL 11:13 AM SEAFOOD CLERK TEST, GLUCOSE Specimen Anatomical Collection Method Collection Time Receive d Time (Source) Location / / Volume Laterality 11/06/2018 11:02 11/06/2018 AM SEAFOOD CLERK 11:13 AM SEAFOOD CLERK Juan YUAN - CAROLYN POCT Performing Organization Address City/[facility]/ZIP Code Phon e Number [facility] POINT OF CARE TEST, GLUCOSE POINT OF CARE TEST, GLUCOSE (ABNORMAL) Glucose by meter (11/06/2018 7:38 AM SEAFOOD CLERK) P athologist Signature Glucose 104 (H) 70 - 99 11/06/2018 [facility] mg/dL 7:50 AM SEAFOOD CLERK TEST, GLUCOSE Specimen Anatomical Collection Method Collection Time Receive d Time (Source) Location / / Volume Laterality 11/06/2018 7:38 AM 9 7:50 SEAFOOD CLERK AM SEAFOOD CLERK Juan Lewis MD LAB - BEAKER POCT Performing Organization Address City/State/ZIP Code Phon e Number [facility] POINT OF CARE TEST, GLUCOSE POINT OF CARE TEST, GLUCOSE Lactic acid whole blood (11/06/2018 4:15 AM SEAFOOD CLERK) athologist Signature Lactic Acid 1.4 0.7 - 2.0 11/06/2018 [facility] mmol/L 4:40 AM [facility] Specimen Anatomical Collection Method Collection Time Receive d Time (Source) Location / / Volume Laterality Blood specimen 11/06/2018 4:15 AM 019 4:25 (specimen) SEAFOOD CLERK AM SEAFOOD CLERK Bessy Mccray MD LAB - BLOOD ORDERABLES Performing Organization Address City/State/ZIP Code Phon e Number M [facility] [address], [place] [address] [phone] [facility] [address] [place] [address], [facility] [phone] (ABNORMAL) Basic metabolic panel (11/06/2018 4:15 AM SEAFOOD CLERK) Analysis Performed At Patho logist Time Signature Sodium 142 133 - 144 11/06/2018 [facility] mmol/L 4:49 AM [facility] Potassium 4.4 3.4 - 5.3 11/06/2018 [facility] mmol/L 4:49 AM [facility] Chloride 113 (H) 94 - 109 11/06/2018 [facility] mmol/L 4:49 AM [facility] Carbon Dioxide 21 20 - 32 11/06/2018 [facility] mmol/L 4:54 AM [facility] Anion Gap 8 3 - 14 11/06/2018 [facility] mmol/L 4:54 AM [facility] Glucose 115 (H) 70 - 99 11/06/2018 [place] mg/dL 4:54 AM [facility] Urea Nitrogen 27 7 - 30 11/06/2018 [place] mg/dL 4:54 AM [facility] Creatinine 1.57 (H) 0.66 - 11/06/2018 [place] 1.25 mg/dL 4:54 AM [facility] GFR Estimate 42 (L) >60 11/06/2018 [place] mL/min/{1. 4:54 AM [facility] 73_m2} HOSPITAL Comment: Non GFR Calc Starting 10/05/2018, serum creatinine ba sed estimated GFR (eGFR) will be calculated using the Chronic Kidney Dise [facility] Epidemiology Collaboration (CKD-EPI) equation. GFR Estimate If 49 (L) >60 mL/min/{1.73_m2} 11/06/2018 4: 54 AM [place] Black [facility] Comment: GFR Calc Starting 10/05/2018, serum creatinine ba sed estimated GFR (eGFR) will be calculated using the Chronic Kidney Dise [facility] Epidemiology Collaboration (CKD-EPI) equation. Calcium 7.8 (L) 8.5 - 10.1 mg/dL 11/06/2018 4:54 AM [facility] Specimen Anatomical Collection Method Collection Time Receive d Time (Source) Location / / Volume Laterality Blood specimen 11/06/2018 4:15 AM 019 4:25 (specimen) SEAFOOD CLERK AM [facility] Bessy Mccray MD LAB - BLOOD ORDERABLES Performing Organization Address City/State/ZIP Code Phon e Number M [facility] [address] [address] [phone] [facility] [address] [address], U [phone] (ABNORMAL) CBC with platelets (11/06/2018 4:15 AM [facility]) Analysis Performed At Patho logist Time Signature WBC 12.9 (H) 4.0 - 11.0 11/06/2018 [place] 10e9/L 4:45 AM [facility] RBC Count 3.93 (L) 4.4 - 5.9 11/06/2018 [facility] 10e12/L 4:45 AM [facility] Hemoglobin 12.5 (L) 13.3 - 11/06/2018 [facility] 17.7 g/dL 4:45 AM [facility] Hematocrit 36.8 (L) 40.0 - 11/06/2018 [facility] 53.0 % 4:45 AM [facility] MCV 94 78 - 100 11/06/2018 [facility] fl 4:45 AM [facility] MCH 31.8 26.5 - 11/06/2018 [facility] 33.0 pg 4:45 AM [facility] MCHC 34.0 31.5 - 11/06/2018 [facility] 36.5 g/dL 4:45 AM [facility] RDW 13.2 10.0 - 11/06/2018 [facility] 15.0 % 4:45 AM [facility] Platelet Count 153 150 - 450 11/06/2018 [facility] 10e9/L 4:45 AM [facility] Specimen Anatomical Collection Method Collection Time Receive d Time (Source) Location / / Volume Laterality Blood specimen 11/06/2018 4:15 AM 019 4:25 (specimen) SEAFOOD CLERK AM SEAFOOD CLERK Bessy Mccray MD LAB - BLOOD ORDERABLES Performing Organization Address City/State/ZIP Code Phon e Number [facility] [address] [address] [phone] [facility] [address] [address], [facility] [phone] (ABNORMAL) Glucose by meter (11/06/2018 1:12 AM SEAFOOD CLERK) P athologist Signature Glucose 126 (H) 70 - 99 11/06/2018 [facility] mg/dL 1:24 AM SEAFOOD CLERK TEST, GLUCOSE Specimen Anatomical Collection Method Collection Time Receive d Time (Source) Location / / Volume Laterality 11/06/2018 1:12 AM 9 1:24 SEAFOOD CLERK AM SEAFOOD CLERK Juan Lewis MD LAB - BEAKER POCT Performing Organization Address City/State/ZIP Code Phon e Number [facility] POINT OF CARE TEST, GLUCOSE POINT OF CARE TEST, GLUCOSE Methicillin Resist/Sens S. aureus PCR (11/05/2018 11:41 PM SEAFOOD CLERK) [facility] gist Method Time Signature Specimen Nares 11/05/2018 [place] Description 11:45 PM SEAFOOD CLERK [facility] Methicillin Negative NEG^Negat 11/06/2018 [facility]/Sens S. shin 2:36 AM [facility] aureus PCR [facility] Comment: MRSA Negative: SA Negative ??MRSA and St aphylococcus aureus target DNA not detected, presumed negative for MRSA and SA colonization or the number of bacteria present may be below the limit of detection for the assay. FDA approved assay performed using [employer] G eneXpert(R) real-time PCR. Specimen (Source) Anatomical Collection Method Collection Time Re ceived Time Location / / Volume Laterality Nasal structure 11/05/2018 11:41 11/06/19 19 (body structure) PM SEAFOOD CLERK Bessy Mccray MD LAB - MICRO GENERAL ORDERABL ES Performing Organization Address City/State/ZIP Code Phon e Number [facility] [address] [place] [address] [facility] [address] [place] [address], [place] [phone] (ABNORMAL) Glucose by meter (11/05/2018 8:16 PM SEAFOOD CLERK) P athologist Signature Glucose 128 (H) 70 - 99 11/05/2018 [facility] mg/dL 8:28 PM SEAFOOD CLERK TEST, GLUCOSE Specimen Anatomical Collection Method Collection Time Receive d Time (Source) Location / / Volume Laterality 11/05/2018 8:16 PM 9 8:28 SEAFOOD CLERK PM SEAFOOD CLERK Juan YUAN - BEFOUZIA POCT Performing Organization Address City/State/ZIP Code Phon e Number [facility] POINT OF CARE TEST, GLUCOSE POINT OF CARE TEST, GLUCOSE (ABNORMAL) Glucose by meter (11/05/2018 4:39 PM SEAFOOD CLERK) P athologist Signature Glucose 124 (H) 70 - 99 11/05/2018 [facility] mg/dL 4:50 PM SEAFOOD CLERK TEST, GLUCOSE Specimen Anatomical Collection Method Collection Time Receive d Time (Source) Location / / Volume Laterality 11/05/2018 4:39 PM 9 4:50 SEAFOOD CLERK PM SEAFOOD CLERK Juan YUAN - BEAKER POCT Performing Organization Address City/State/ZIP Code Phon e Number [facility] POINT OF CARE TEST, GLUCOSE POINT OF CARE TEST, GLUCOSE (ABNORMAL) CBC with platelets (11/05/2018 4:35 PM SEAFOOD CLERK) Analysis Performed At Patho logist Time Signature WBC 7.3 4.0 - 11.0 11/05/2018 [facility] 10e9/L 5:22 PM [facility] RBC Count 4.35 (L) 4.4 - 5.9 11/05/2018 [facility] 10e12/L 5:22 PM [facility] Hemoglobin 13.7 13.3 - 11/05/2018 [facility] 17.7 g/dL 5:22 PM [facility] Hematocrit 40.9 40.0 - 11/05/2018 [facility] 53.0 % 5:22 PM [facility] MCV 94 78 - 100 11/05/2018 [facility] fl 5:22 PM [facility] MCH 31.5 26.5 - 11/05/2018 [facility] 33.0 pg 5:22 PM [facility] MCHC 33.5 31.5 - 11/05/2018 [facility] 36.5 g/dL 5:22 PM [facility] RDW 13.1 10.0 - 11/05/2018 [facility] 15.0 % 5:22 PM [facility] Platelet Count 108 (L) 150 - 450 11/05/2018 [facility] 10e9/L 5:22 PM [facility] Specimen Anatomical Collection Method Collection Time Receive d Time (Source) Location / / Volume Laterality Blood specimen 11/05/2018 4:35 PM 019 5:17 (specimen) SEAFOOD CLERK PM SEAFOOD CLERK Bessy Mccray MD LAB - BLOOD ORDERABLES Performing Organization Address City/[facility]/ZIP Code Phon e Number M [facility] [address] [address] [facility] [address] [address], U [phone] INR (11/05/2018 4:35 PM SEAFOOD CLERK) P athologist Signature INR 1.03 0.86 - 1.14 11/05/2018 [facility] 5:33 PM [facility] Specimen Anatomical Collection Method Collection Time Receive d Time (Source) Location / / Volume Laterality Blood specimen 11/05/2018 4:35 PM 019 5:17 (specimen) SEAFOOD CLERK PM SEAFOOD CLERK Bessy Mccray MD LAB - BLOOD ORDERABLES Performing Organization Address City/State/ZIP Code Phon e Number M [facility] [address] [place] [address] [phone] [facility] [address] [place] [address], [place] [phone] Lactic acid whole blood (11/05/2018 4:35 PM SEAFOOD CLERK) P athologist Signature Lactic Acid 1.0 0.7 - 2.0 11/05/2018 [facility] mmol/L 5:57 PM [facility] Specimen Anatomical Collection Method Collection Time Receive d Time (Source) Location / / Volume Laterality Blood specimen 11/05/2018 4:35 PM 019 5:18 (specimen) SEAFOOD CLERK PM SEAFOOD CLERK Bessy Mccray MD LAB - BLOOD ORDERABLES Performing Organization Address City/State/ZIP Code Phon e Number M [facility] [address] [place] [address] [phone] [facility] [address] [place] [address], [place] [phone] (ABNORMAL) Basic metabolic panel (11/05/2018 4:35 PM SEAFOOD CLERK) Analysis Performed At Patho logist Time Signature Sodium 143 133 - 144 11/05/2018 [place] mmol/L 5:38 PM [facility] Potassium 4.3 3.4 - 5.3 11/05/2018 [place] mmol/L 5:38 PM [facility] Chloride 113 (H) 94 - 109 11/05/2018 [place] mmol/L 5:38 PM [facility] Carbon Dioxide 22 20 - 32 11/05/2018 [facility] mmol/L 5:43 PM [facility] Anion Gap 8 3 - 14 11/05/2018 [place] mmol/L 5:43 PM [facility] Glucose 121 (H) 70 - 99 11/05/2018 [place] mg/dL 5:43 PM [facility] Urea Nitrogen 24 7 - 30 11/05/2018 [place] mg/dL 5:43 PM [facility] Creatinine 1.30 (H) 0.66 - 11/05/2018 [place] 1.25 mg/dL 5:43 PM [facility] GFR Estimate 53 (L) >60 11/05/2018 [place] mL/min/{1. 5:43 PM [facility] 73_m2} HOSPITAL Comment: Non GFR Calc Starting 10/05/2018, serum creatinine ba sed estimated GFR (eGFR) will be calculated using the Chronic Kidney Dise [facility] Epidemiology Collaboration (CKD-EPI) equation. GFR Estimate If 61 >60 mL/min/{1.73_m2} 11/05/2018 5: 43 PM [facility] Comment: GFR Calc Starting 10/05/2018, serum creatinine ba sed estimated GFR (eGFR) will be calculated using the Chronic Kidney Dise [facility] Epidemiology Collaboration (CKD-EPI) equation. Calcium 8.6 8.5 - 10.1 mg/dL 11/05/2018 5:43 PM [facility] Specimen Anatomical Collection Method Collection Time Receive d Time (Source) Location / / Volume Laterality Blood specimen 11/05/2018 4:35 PM 019 5:17 (specimen) SEAFOOD CLERK PM SEAFOOD CLERK Bessy Mccray MD LAB - BLOOD ORDERABLES Performing Organization Address City/State/ZIP Code Phon e Number [facility] [address] [address] [facility] [address] [address], [facility] [phone] IR Thoracic Endovascular Stent Graft (11/05/2018 12:09 PM SEAFOOD CLERK) Anatomical Region Laterality Modality Chest Radio Fluoroscopy Specimen (Source) Anatomical Location Collection Method / Collectio n Time Received Time / Laterality Volume Impressions 11/06/2018 3:33 PM SEAFOOD CLERK IMPRESSION: Successful deployment in 2 components for [...] KANNAN MORSE MD Narrative 11/06/2018 3:33 PM SEAFOOD CLERK INTERVENTIONAL RADIOLOGY THORACIC ENDOVASCULAR STENT GRAFT ??11/05/2018 [...] cm. Plan is for endovascular repair with Clip Valiant Navion stent graft system. TECHNIQUE: Please [...] tion. Over a series of maneuvers, 6 Slovenian vascular sheath was placed. From left groin [...] cm. Plan is for endovascular repair with Clip Valiant Navion stent graft system. TECHNIQUE: Please [...] tion. Over a series of maneuvers, 6 [place]ian vascular sheath was placed. From left groin [...] Drain Placement w Fluoro (11/05/2018 9:10 AM SEAFOOD CLERK) Anatomical Region Laterality Modality Spine Radio Fluoroscopy Specimen (Source) Anatomical Location Collection Method / Collectio n Time Received Time / Laterality Volume Narrative 11/05/2018 9:19 AM SEAFOOD CLERK [facility] RADIOLOGY INTERVENTIONAL NEURORADIOLOGY PROCEDURAL NOTE [...] codes included for physician barbara ce only: 17930/24990 MISSAEL GARCIA MD Procedure Note Missael Garcia MD - 11/05/2018For matting of this note might be different from the original. [facility] RADIOLOGY INTERVENTIONAL NEURORADIOLOGY PROCEDURAL NOTE [...] codes included for physician referen ce only: 66780/70134 MISSAEL GARCIA MD Butch Brown MD IMG IR ORDERABLES EKG 12-lead, tracing only (11/05/2018 6:58 AM SEAFOOD CLERK) [facility] gist Method Time Signature Interpretation ECG Click View RADIOLOGY Image link RESULTS to view waveform and result Specimen (Source) Anatomical Collection Method Collection Time Re ceived Time Location / / Volume Laterality 11/05/2018 6:58 AM SEAFOOD CLERK Juan Lewis MD ECG ORDERABLES Performing Organization Address City/State/ZIP Code Phon e Number RADIOLOGY RESULTS Potassium (11/05/2018 6:55 AM SEAFOOD CLERK) athologist Signature Potassium 4.3 3.4 - 5.3 11/05/2018 [place] mmol/L 7:15 AM SEAFOOD CLERK [facility] Specimen Anatomical Collection Method Collection Time Receive d Time (Source) Location / / Volume Laterality Blood specimen 11/05/2018 6:55 AM 019 6:56 (specimen) SEAFOOD CLERK AM SEAFOOD CLERK Zakia Tobin MD LAB - BLOOD ORDERABLES Performing Organization Address City/State/ZIP Code Phon e Number [facility] [address] [address] [facility] [address] [place] [address], [place] [phone] Lipid panel (11/05/2018 6:55 AM [facility]) Analysis Performed At Patho logist Time Signature Cholesterol 128 <200 mg/dL 11/05/2018 [place] 7:20 AM [facility] Triglycerides 125 <150 mg/dL 11/05/2018 [place] 7:21 AM [facility] HDL Cholesterol 59 >39 mg/dL 11/05/2018 [place] 7:23 AM [facility] LDL Cholesterol 44 <100 mg/dL 11/05/2018 [facility] Calculated 7:23 AM [facility] Comment: Desirable: <100 mg/dl Non HDL Cholesterol 69 <130 mg/dL 11/05/2018 7:23 AM [facility] Specimen Anatomical Collection Method Collection Time Receive d Time (Source) Location / / Volume Laterality Blood specimen 11/05/2018 6:55 AM 019 6:56 (specimen) SEAFOOD CLERK AM SEAFOOD CLERK Juan Lewis MD LAB - BLOOD ORDERABLES Performing Organization Address City/State/ZIP Code Phon e Number [facility] [address] [place] [address] [facility] [address] [place] [address], [place] [phone] Hemoglobin A1c (11/05/2018 6:55 AM SEAFOOD CLERK) P athologist Signature Hemoglobin A1C 5.2 0 - 5.6 % 11/05/2018 [place] 7:30 AM [facility] Comment: Normal <5.7% Prediabetes 5.7-6.4% ??Diab etes 6.5% or higher - adopted from ADA consensus guidelines. Specimen Anatomical Collection Method Collection Time Receive d Time (Source) Location / / Volume Laterality Blood specimen 11/05/2018 6:55 AM 019 6:56 (specimen) SEAFOOD CLERK AM SEAFOOD CLERK Juan Lewis MD LAB - BLOOD ORDERABLES Performing Organization Address City/State/ZIP Code Phon e Number [facility] [address] [address] [facility] [address] [address], [place] [phone] (ABNORMAL) Creatinine (11/05/2018 6:55 AM SEAFOOD CLERK) athologist Signature Creatinine 1.52 (H) 0.66 - 11/05/2018 [place] 1.25 mg/dL 7:20 AM [facility] GFR Estimate 44 (L) >60 11/05/2018 [place] mL/min/{1. 7:20 AM [facility] 73_m2} HOSPITAL Comment: Non GFR Calc Starting 10/05/2018, serum creatinine ba sed estimated GFR (eGFR) will be calculated using the Chronic Kidney Dise [facility] Epidemiology Collaboration (CKD-EPI) equation. GFR Estimate If 51 (L) >60 mL/min/{1.73_m2} 11/05/2018 7: 20 AM [place] Black [facility] Comment: GFR Calc Starting 10/05/2018, serum creatinine ba sed estimated GFR (eGFR) will be calculated using the Chronic Kidney Dise [facility] Epidemiology Collaboration (CKD-EPI) equation. Specimen Anatomical Collection Method Collection Time Receive d Time (Source) Location / / Volume Laterality Blood specimen 11/05/2018 6:55 AM 019 6:56 (specimen) SEAFOOD CLERK AM SEAFOOD CLERK Juan Lewis MD LAB - BLOOD ORDERABLES Performing Organization Address City/State/ZIP Code Phon e Number [facility] [address] [address] [facility] [address] [place] [address], [place] [phone] XR Chest Port 1 View (11/05/2018 6:40 AM SEAFOOD CLERK) Anatomical Region Laterality Modality Chest Digital Radiography Specimen (Source) Anatomical Location Collection Method / Collectio n Time Received Time / Laterality Volume Impressions 11/05/2018 6:58 AM SEAFOOD CLERK IMPRESSION: No acute abnormality. TORI SANTIZO MD Narrative 11/05/2018 6:58 AM SEAFOOD CLERK XR CHEST PORTABLE 1 VIEW ?? 11/05/2018 [...] CARDIAC - HIM SCAN (09/24/2018 12:00 AM SEAFOOD CLERK) Specimen (Source) Anatomical Location Collection Method / [...] acetaminophen (TYLENOL) tablet Given 11/08/2018 11:04 PM SEAFOOD CLERK 975 mg 975 mg 975 mg, Oral, EVERY 6 HOURS PRN, mild pain, fever, Starting on Thu11/05/18 at 1827, Maximum acetaminophen dose from all sources = 75 mg/kg/day not to exceed 4 grams/day. Given 11/08/2018 12:37 PM SEAFOOD CLERK 975 mg Given 11/07/2018 11:03 AM SEAFOOD CLERK 975 mg alum & mag hydroxide-simethicone (MYLANTA Given 11/08/2018 2:48 AM SEAFOOD CLERK 30 mLs ES/MAALOX ES) suspension 30 mL 30 mL, Oral, EVERY 4 HOURS PRN, indigestion, Starting on Thu11/05/18 at 1510, Shake well. apixaban ANTICOAGULANT (ELIQUIS) tablet 2.5 Given 10/20 12:04 PM SEAFOOD CLERK 2.5 mg mg 2.5 mg, Oral, 2 TIMES DAILY, First dose on Thu11/09/18 at 1115 atorvastatin (LIPITOR) tablet 40 mg Given 11/08/2018 8:20 PM SEAFOOD CLERK 40 mg 40 mg, Oral, EVERY EVENING, First dose on Thu11/05/18 at 2000 Given 11/07/2018 7:49 PM SEAFOOD CLERK 40 mg Given 11/06/2018 9:16 PM SEAFOOD CLERK 40 mg BUPivacaine (MARCAINE) Given 11/05/2018 12:07 PM 20 mLs Operative Site/Surgical injection 0.5% PF SEAFOOD CLERK Site PRN, Starting on Thu11/05/18 at 1207, Intra-procedure calcium carbonate (TUMS) chewable tablet Given 11/07/2018 10 :34 PM SEAFOOD CLERK 1,000 mg 1,000 mg 1,000 mg, Oral, EVERY 2 HOURS PRN, heartburn, Starting on Thu11/06/18 at 0408, Do not give if calcium level greater than 10 mg/dL. Given 11/07/2018 12:05 AM SEAFOOD CLERK 1,000 mg Given 11/06/2018 4:50 AM SEAFOOD CLERK 1,000 mg cyclobenzaprine (FLEXERIL) tablet 5-10 m g Given 11/08/2018 3:58 AM SEAFOOD CLERK 10 mg 5-10 mg, Oral, 3 TIMES DAILY PRN, muscle spasms, Starting on Thu11/07/18 at 1153 Given 11/07/2018 2:26 PM SEAFOOD CLERK 5 mg diphenhydrAMINE (BENADRYL) injection 12. 5 mg 12.5 mg, Intravenous, EVERY 6 HOURS PRN, itching, Only give if patient unable to take PO., Starting on Thu11/05/18 at 151 0, Caution to be used when administering multiple [employer] depressing meds within a sh ort time frame. For ordered IV doses 1-50 mg, give IV Push undiluted. Give each 25 mg over a minimum of 1 minute. Extend in non-emergency diphenhydrAMINE (BENADRYL) solution 12.5 mg 12.5 mg, Oral, EVERY 6 HOURS PRN, itchin g, Starting on Thu11/05/18 at 1510, Caution to be used when administering multiple [employer] depressing meds within a short time frame. heparin 10,000 units in Given 11/05/2018 11:06 AM 200 mLs Operative Site/Surgical 1000 mL 0.9% sodium SEAFOOD CLERK Site chloride PRN, Starting on Thu11/05/18 at 1106, Intra-procedure hydrALAZINE (APRESOLINE) injection 10-20 mg Given 11/08/2018 7:03 PM SEAFOOD CLERK 10 mg 10-20 mg, Intravenous, EVERY 1 [...] over 1 minute. Given 11/08/2018 11:51 AM SEAFOOD CLERK 20 mg Given 11/08/2018 3:36 AM SEAFOOD CLERK 20 mg iopamidol (ISOVUE-300) IV Given 11/05/2018 12:42 PM 75 mLs Operative Site/Surgical solution 61% SEAFOOD CLERK Site PRN, Starting on Thu11/05/18 at 1242, Intra-procedure labetalol (NORMODYNE/TRANDATE) injection 10-20 Given 0 11/08/2018 3:03 AM SEAFOOD CLERK 10 mg mg 10-20 mg, Intravenous, EVERY [...] over 2 minutes. Given 11/08/2018 2:33 AM SEAFOOD CLERK 20 mg Given 11/07/2018 10:35 PM SEAFOOD CLERK 10 mg magnesium sulfate 4 g in 100 mL sterile water (premade) 4 g, Intravenous, Administer over 120 Minutes, EVERY 4 HOURS PRN, magnesium supplementation, Starting on 11/07/18 at 1152, For serum Mg++ less than 1.6 mg/dL Give 4 g and recheck magnesium level 2 hours aft er dose, and next AM. metoprolol tartrate (LOPRESSOR) tablet 5 0 mg Given 11/09/2018 8:28 AM SEAFOOD CLERK 50 mg 50 mg, Oral, 2 TIMES DAILY, First dose on 11/08/18 at 2100, Hold for SBP < 90, HR < 50 Given 11/08/2018 8:20 PM SEAFOOD CLERK 50 mg omeprazole (priLOSEC) CR capsule 20 mg Given 11/09/2018 6:33 AM SEAFOOD CLERK 20 mg 20 mg, Oral, EVERY MORNING BEFORE BREAKFAST, First dose on Thu11/07/18 at 2345 Given 11/08/2018 8:22 AM SEAFOOD CLERK 20 mg Given 11/07/2018 11:48 PM SEAFOOD CLERK 20 mg ondansetron (ZOFRAN) injection 4 mg Given 11/07/2018 11:48 PM SEAFOOD CLERK 4 mg 4 mg, Intravenous, EVERY 6 [...] half-tab 2.5-5 mg Given 11/08/2018 12:37 PM SEAFOOD CLERK 5 mg 2.5-5 mg, Oral, EVERY 4 HOURS PRN, moderate to severe pain, Starting on Thu11/05/18 at 1724 Given 11/08/2018 6:19 AM SEAFOOD CLERK 5 mg Given 11/07/2018 7:49 PM SEAFOOD CLERK 5 mg sennosides (SENOKOT) tablet 8.6 mg Given 11/08/2018 3:36 AM SEAFOOD CLERK 8.6 mg 8.6 mg, Oral, 2 TIMES DAILY PRN, constipation, Starting on Thu11/08/18 at 0250 sodium chloride (PF) 0.9% PF flush 3 mL Given 11/07/2018 4:12 PM SEAFOOD CLERK 3 mLs 3 mL, Intracatheter, EVERY 8 HOURS, First dose on Thu11/05/18 at 1515, And Q1H PRN, to lock peripheral IV dormant line. Given 11/07/2018 11:34 AM SEAFOOD CLERK 3 mLs Given 11/07/2018 12:06 AM SEAFOOD CLERK 10 mLs terazosin (HYTRIN) capsule 5 mg Given 11/08/2018 9:21 PM SEAFOOD CLERK 5 mg 5 mg, Oral, AT BEDTIME, First dose on Thu11/05/18 at 2200 documented in this encounter Active and Recently Administered Medications Times are shown in SEAFOOD CLERK. Scheduled Medication Order 11/07/2018 11/08/2018 11/09/2018 apixaban [...] Crooks , RN)1400 (Stopped - Provider: Aura Crooks RN)1621 (Restarted - Provider: Aura Crooks, JOSE)1844 (New Bag - Provider: Misty Villalobos, OJSE) at 75 mL/hr, Intravenous, CONTINUOUS, St arting [place] 11/07/18 at 1200, Until Thu11/09/18 at 0731 [...] Caution to be used when administering multiple [employer] depressing meds within a short time frame. For ordered IV doses 1-50 m g, give IV Push undiluted. Give each 25mg over a minimum of 1 minute. Extend in non-emergency diphenhydrAMINE (BENADRYL) solution 12.5 mg(Linked Group 1) 12.5 mg, Oral, EVERY 6 HOURS PRN, itchin g, Starting Thu11/05/18 at 1510, Caution to be used when administering multiple [employer] depressing meds within a short time frame. [...] allergy to any local anesthetic or any akthy ne product. MAX dose 1 mL subcutaneous [...] (ZOFRAN-ODT) ODT tab 4 mg(Linked Group 2) 5001 (See Alternative - Provider: Kristy Castañeda RN) [...]
Caution to be used when administering multiple [employer] depressing meds within a short time frame.
Or diphenhydrAMINE (BENADRYL) injection 12.5 mgJump to med 12.5 mg, Intravenous, EVERY 6 HOURS PRN, itching, Only give if patient unable to take PO., Starting 1/18/19 at 1510
Caution to be used when administering multiple [employer] depressing meds within a short time frame. [...] as of this encounter Care Teams Engineering Specialist Technician Relationship Specialty Start Date End Date [facility], [facility] PCP - General 05/12/[address] [place] [address] documented as of this encounter
--- OUTSIDE RECORDS SUMMARY | 2022-08-14 11:16 | XMS_ITS | Encounter Summary ---
:1940 Author Organization [place] Address [address] [facility] [place] [address] Care Team Providers Name Role Phone Clinic, [facility] Primary Care Provider [phone] Reason for Visit Auth/Cert Specialty Diagnoses / Procedures Referred By Contact Refer red To Contact Surgery Diagnoses ABDOMINAL AORTIC ANEURYSM Sh Periop Services Procedures ENDOVASCULAR REPAIR ANEURYSM ABDOMINAL AORTA [address] [place] [address] Phone: Referral ID Status Reason Start Date Expiration Date Visits Requ ested Visits Authorized [id number] 1 1 Encounter Details Date Type Department Care Team Description 09/28/2018 - [facility] Juan Vásquez MD [address] [place] [id number] AAA (abdominal 09/29/2018 Encounter Carrie Abdi MD [address] [place] [id number] aortic aneurysm) Intermediate Care (H) [address] [place] [...] Comments Blood Pressure 135/74 09/29/2018 11:18 AM CORRECTIONAL MEDICINE PHYSICIAN Pulse 48 09/29/2018 11:18 AM CORRECTIONAL MEDICINE PHYSICIAN Temperature 36.5 ??C (97.7 ??F) 09/29/2018 11:18 AM CORRECTIONAL MEDICINE PHYSICIAN Respiratory Rate 16 09/29/2018 11:18 AM CORRECTIONAL MEDICINE PHYSICIAN Oxygen Saturation 95% 09/29/2018 11:18 AM CORRECTIONAL MEDICINE PHYSICIAN Inhaled Oxygen Concentration - - Weight 85.2 kg (187 lb 12.8 oz) 09/29/2018 5:00 AM CORRECTIONAL MEDICINE PHYSICIAN Height 170.2 cm (5' 7) 09/28/2018 11:21 AM CORRECTIONAL MEDICINE PHYSICIAN Body Mass Index 29.41 09/28/2018 11:21 AM CORRECTIONAL MEDICINE PHYSICIAN documented in this encounter Discharge Summaries Juan [...] MD MT: RIO Name: SPEEDY MCDUFFIE Account: [id number] : 1940 Admit Date: 09/28/2018 Discharge Date: 09/29/2018 Document: [id number] cc: Primary ECTIONAL MEDICINE PHYSICIAN documented in this encounter Medications at Time [...] Levi MD - 09/29/2018 9:32 AM CST [facility] Vascular Medicine Progress Note Date [...] concerns during business hours M-F, call the [facility] at [phone] to have the rounding/it solutions architect Vascular Medicine (NOT VASCULAR SURGERY) MD paged. - After business hours M-F,??for medical concerns on this patient, please page hospitalist staff. - For vascular surgical questions, please page the appropriate surgeon (primary vascular surgeon or it solutions architect vascular surgeon) based upon the time of day. Lambert Fontanez PA-C Zoltan Londono MD - 09/29/2018 8:19 AM CST [facility] Vascular Surgery Progress Note Assessment [...] ??? terazosin 5 mg Oral At Bedtime ECTIONAL MEDICINE PHYSICIAN Brandie Barrera PA-C - 09/28/2018 5:55 PM CST HOSPITALIST CONSULT CHART CHECK: Hospitalist service was consulted for cross coverage only. We will peripherally follow and chart check throughout the week. - For vascular medical concerns during business hours M-F, call the [facility] at [phone] to have the rounding/it solutions architect Vascular Medicine (NOT VASCULAR SURGERY) MD paged. - After business hours M-,??for medical concerns on this patient, please page hospitalist staff. - For vascular surgical questions, please page the appropriate surgeon (primary vascular surgeon or it solutions architect vascular surgeon) based upon the time of day. Brandie Barrera PA-C ECTIONAL MEDICINE PHYSICIAN Michelle Villalta - 09/28/2018 10:42 AM CST Admission medication history interview status for the 09/28/2018 admission is complete. See [facility] admission navigator for prior to admission medications Medication history source reliability:Good Medication history interview source(s):Patient Medication history resources (including written lists, pill bottles, clinic record):Patient mailed in his medication list prior to surgery Primary pharmacy.[facility] Additional medication history information not noted on [facility] med list :None Time spent in this [...] at HS Yes Unknown, Entered By History ECTIONAL MEDICINE PHYSICIAN documented in this encounter Procedure Notes Jacqui [...] for procedural details. Provider name: Jacqui Odom Cook Fish And Chips(s):None ECTIONAL MEDICINE PHYSICIAN documented in this encounter Consult Notes Carrie Levi MD - 09/28/2018 4:08 PM CST Consult Date: 09/28/2018 REQUESTING PHYSICIAN: Howard. Carmina Vsáquez III, MD REASON FOR CONSULTATION REQUEST: Postoperative [...] 1978. 2. Cervical fusion, Dr. Donahue at [facility] 02/18/2006. 3. Hardware removal and matrixectomy, right great toe, 09/30/2012. 4. Lumbar fusion 10/1996, L5-S1. 5. Lumbar fusion 1999, L4. 6. 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 7. Laparoscopic appendectomy, 01/2009. SOCIAL HISTORY: The patient is . He has 2 children. 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 He quit smoking [id number] after a 1/4 pack per day use [...] MD MT: JACKSON Name: SPEEDY MCDUFFIE Account: [id number] : 1940 Consult Date: 09/28/2018 Document: [id number] ECTIONAL MEDICINE PHYSICIAN documented in this encounter Miscellaneous Notes Op [...] MD MT: JACKSON Name: SPEEDY MCDUFFIE Account: [id number] : 1940 Procedure Date: 09/28/2018 Document: [id number] ECTIONAL MEDICINE PHYSICIAN Plan of Care - rGiselda Dinero RN - 09/29/2018 8:12 AM CST [...] will continue to follow up with this. ECTIONAL MEDICINE PHYSICIAN Provider Notification - Levi Hollingsworth MD - 09/29/2018 12:46 AM CORRECTIONAL MEDICINE PHYSICIAN Brief update: Paged re: request for home melatonin 10 mg melatonin HS PRN added. Levi Hollingsworth MD 12:47 AM ECTIONAL MEDICINE PHYSICIAN Plan of Care - Ira South RN - 09/28/2018 11:11 PM CST A&O, VSS, Lung sounds clear, Bowel sounds active,adeqaute urine output, incision right & letgroin CDI Ambulates assist 1, Regular diet, tolerating liquids with poor appetite. Pain controlled by scheduled tylenol and PRN oxycodone. ECTIONAL MEDICINE PHYSICIAN Plan of Care - Vandana Smith RN - 09/28/2018 7:22 PM CST Pt is came from PACU.Groin site dressing clean dry and intact.Not void yet.Ice pack given.IVF running .will monitor. ECTIONAL MEDICINE PHYSICIAN documented in this encounter Plan of Treatment Not on filedocumented as of this encounter Procedures Procedure Name Priority Date/Time Associated Comments Diagnosis CTA CHEST WITH Routine 09/29/2018 11:38 Results f or this CONTRAST AM CORRECTIONAL MEDICINE PHYSICIAN procedure are i n the results section. BASIC METABOLIC PANEL Timed 09/29/2018 10:06 AAA (abdominal Results for this AM CORRECTIONAL MEDICINE PHYSICIAN aortic aneurysm) procedure a re in (H) the results section. GLUCOSE BY METER Routine 09/29/2018 6:00 AM AAA (abdominal Res ults for this CORRECTIONAL MEDICINE PHYSICIAN aortic aneurysm) procedure a re in (H) the results section. ANGIOGRAM Routine 09/28/2018 2:39 PM CORRECTIONAL MEDICINE PHYSICIAN IR ABDOMINAL Routine 09/28/2018 2:17 PM AAA (abdominal Results for this ENDOVASCULAR STENT CORRECTIONAL MEDICINE PHYSICIAN aortic aneurysm) proce dure are in GRAFT (H) the results section. EKG 12-LEAD, TRACING STAT 09/28/2018 11:42 Res ults for this ONLY AM CORRECTIONAL MEDICINE PHYSICIAN procedure are i n the results section. XR CHEST 1 VIEW STAT 09/28/2018 11:21 Results for this AM CORRECTIONAL MEDICINE PHYSICIAN procedure are i n the results section. BLOOD COMPONENT Routine 09/28/2018 11:11 AAA (abdominal Result s for this AM CORRECTIONAL MEDICINE PHYSICIAN aortic aneurysm) procedure a re in (H) the results section. BLOOD COMPONENT Routine 09/28/2018 11:11 AAA (abdominal Result s for this AM CORRECTIONAL MEDICINE PHYSICIAN aortic aneurysm) procedure a re in (H) the results section. POTASSIUM STAT 09/28/2018 11:11 AAA (abdominal Results f or this AM CORRECTIONAL MEDICINE PHYSICIAN aortic aneurysm) procedure a re in (H) the results section. LIPID PROFILE STAT 09/28/2018 11:11 AAA (abdominal Results for this AM CORRECTIONAL MEDICINE PHYSICIAN aortic aneurysm) procedure a re in (H) the results section. HEMOGLOBIN A1C STAT 09/28/2018 11:11 AAA (abdominal Results for this AM CORRECTIONAL MEDICINE PHYSICIAN aortic aneurysm) procedure a re in (H) the results section. CREATININE STAT 09/28/2018 11:11 AAA (abdominal Results f or this AM CORRECTIONAL MEDICINE PHYSICIAN aortic aneurysm) procedure a re in (H) the results section. ABO/RH TYPE AND STAT 09/28/2018 11:11 AAA (abdominal Result s for this SCREEN AM CORRECTIONAL MEDICINE PHYSICIAN aortic aneurysm) procedure a re in (H) the results section. LAB RESULT - HIM SCAN 09/24/2018 12:00 AM CORRECTIONAL MEDICINE PHYSICIAN EKG CARDIAC - HIM 09/24/2018 12:00 SCAN AM CORRECTIONAL MEDICINE PHYSICIAN documented in this encounter Results CTA Chest with Contrast (09/29/2018 11:38 AM CORRECTIONAL MEDICINE PHYSICIAN) Anatomical Region Laterality Modality Chest, SUBRAD IR PROCEDURE, UMP CT CTA, RAD CT Computed Tomography Specimen (Source) Anatomical Location Collection Method / Collectio n Time Received Time / Laterality Volume Impressions 09/29/2018 4:30 PM CORRECTIONAL MEDICINE PHYSICIAN IMPRESSION: Tortuous descending thoracic aorta with bilobed aneurysmal dilatation measuring up to 50 mm in diameter in the distal descending aorta. JACQUI A WELNICK, MD Narrative 09/29/2018 4:30 PM CORRECTIONAL MEDICINE PHYSICIAN PROCEDURE: CTA of the chest DATE OF [...] ORDERABLES Basic metabolic panel (09/29/2018 10:06 AM [facility]) [facility] Time Signature Sodium 141 133 - 144 09/29/2018 [facility] mmol/L 10:31 AM [facility] Potassium 4.5 3.4 - 5.3 09/29/2018 [facility] mmol/L 10:31 AM [facility] Chloride 109 94 - 109 09/29/2018 [facility] mmol/L 10:31 AM [facility] Carbon Dioxide 25 20 - 32 09/29/2018 [facility] mmol/L 10:31 AM [facility] Anion Gap 7 3 - 14 09/29/2018 [facility] mmol/L 10:31 AM [facility] Glucose 97 70 - 99 09/29/2018 [facility] mg/dL 10:31 AM [facility] Urea Nitrogen 18 7 - 30 09/29/2018 [facility] mg/dL 10:31 AM [facility] Creatinine 1.25 0.66 - 09/29/2018 [facility] 1.25 10:31 AM [facility] mg/[facility] GFR Estimate Not Calculated >60 09/29/2018 [facility] mL/min/1. 10:[address] GFR Estimate Not Calculated >60 09/29/2018 [facility] If Black mL/min/1. 10:[address] Calcium 8.8 8.5 - 09/29/2018 [facility] 10.1 10:31 AM [facility] mg/dL HOSPITAL Specimen Anatomical Collection Method Collection Time Receive d Time (Source) Location / / Volume Laterality Blood specimen 09/29/2018 10:06 8 (specimen) AM CORRECTIONAL MEDICINE PHYSICIAN 10:07 AM CORRECTIONAL MEDICINE PHYSICIAN Pam Conde PA-C LAB - BLOOD ORDERABLES Performing Organization Address City/State/ZIP Code Phon e Number [facility] [address] [place] [address] [facility] [address] [place] [address], [place] [phone] (ABNORMAL) Glucose by meter (09/29/2018 6:00 AM CORRECTIONAL MEDICINE PHYSICIAN) P athologist Signature Glucose 109 (H) 70 - 99 09/29/2018 [facility] mg/dL 6:18 AM CORRECTIONAL MEDICINE PHYSICIAN TEST, GLUCOSE Specimen Anatomical Collection Method Collection Time Receive d Time (Source) Location / / Volume Laterality 09/29/2018 6:00 AM 8 6:18 CORRECTIONAL MEDICINE PHYSICIAN AM CORRECTIONAL MEDICINE PHYSICIAN Juan Vásquez MD LAB - BEAKER POCT Performing Organization Address City/State/ZIP Code Phon e Number [facility] POINT OF CARE TEST, GLUCOSE POINT OF CARE TEST, GLUCOSE IR Abdominal Endovascular Stent Graft (09/28/2018 2:17 PM CORRECTIONAL MEDICINE PHYSICIAN) Anatomical Region Laterality Modality Abdomen/Pelvis Radio Fluoroscopy Specimen (Source) Anatomical Location Collection Method / Collectio n Time Received Time / Laterality Volume Impressions 09/29/2018 8:52 AM CORRECTIONAL MEDICINE PHYSICIAN Impression: 1. Thoracic and abdominal angiography de monstrating previously unknown thoracic aortic aneurysm as well as the known abdominal aortic aneurysm 2. Endovascular aneurysm repair was abor clvoer to allow for further investigation of the thoracic aortic ane urysm and future surgical planning. JACQUI OODM MD Narrative 09/29/2018 8:52 AM CORRECTIONAL MEDICINE PHYSICIAN PROCEDURE(S): 1. Thoracic and abdominal aortic angiogr [...] aneurysm repair. A timeout was performed per [facility] rsal protocol policy to confirm the [...] aneurysm repair. A timeout was performed per [facility] rsal protocol policy to confirm the [...] EKG 12-lead, tracing only (09/28/2018 11:42 AM CORRECTIONAL MEDICINE PHYSICIAN) [facility] Method Time Signature Interpretation ECG Click View RADIOLOGY Image link RESULTS to view waveform and result Specimen (Source) Anatomical Collection Method Collection Time Re ceived Time Location / / Volume Laterality 09/28/2018 11:42 AM CORRECTIONAL MEDICINE PHYSICIAN Juan Vásquez MD ECG ORDERABLES Performing Organization Address City/State/ZIP Code Phon e Number RADIOLOGY RESULTS XR Chest 1 View (09/28/2018 11:21 AM CORRECTIONAL MEDICINE PHYSICIAN) Anatomical Region Laterality Modality Chest Digital Radiography Specimen (Source) Anatomical Location Collection Method / Collectio n Time Received Time / Laterality Volume Impressions 09/28/2018 1:09 PM CORRECTIONAL MEDICINE PHYSICIAN IMPRESSION: Heart size similar to prior. The thoracic aorta is elongated. No airspace consolidation or pneumothorax. There appears to be a small right pleural effusion. ELAINA HUNTLEY MD Narrative 09/28/2018 1:09 PM CORRECTIONAL MEDICINE PHYSICIAN CHEST ONE VIEW ??09/28/2018 11:21 AM HISTORY: [...] ORDER BRAYDEN Blood component (09/28/2018 11:11 AM CORRECTIONAL MEDICINE PHYSICIAN) [facility] gist Method Time Signature Unit Number [id number] 09/28/2018 [facility] 1:21 PM [facility] Blood Red Blood 09/28/2018 [facility] Component Cells 1:21 PM [facility] Reduced Division 00 09/28/2018 [facility] Number 1:21 PM [facility] Status of No longer 10/02/2018 [facility] Unit available 3:00 AM [facility] 10/02/2018 HOSPITAL 0300 Blood Product [id number] 09/28/2018 [facility] Code 1:21 PM [facility] Unit Status [facility] Specimen Anatomical Collection Method Collection Time Receive d Time (Source) Location / / Volume Laterality 09/28/2018 11:11 09/28/2018 AM CORRECTIONAL MEDICINE PHYSICIAN 11:44 AM CORRECTIONAL MEDICINE PHYSICIAN Juan Vásquez MD LABORATORY Performing Organization Address City/State/ZIP Code Phon e Number M [facility] [address] [facility] [place] [address] [facility] [address] [place] [address], [facility] [phone] [facility] [address] [place], [place] [address], [facility] [phone] Blood component (09/28/2018 11:11 AM CORRECTIONAL MEDICINE PHYSICIAN) Patholo gist Method Time Signature Unit Number [id number] 09/28/2018 [facility] 1:21 PM CORRECTIONAL MEDICINE PHYSICIAN [facility] Blood Red Blood 09/28/2018 [facility] Component Cells 1:21 PM CORRECTIONAL MEDICINE PHYSICIAN [facility] Reduced Division 00 09/28/2018 [facility] Number 1:21 PM [facility] Status of No longer 10/02/2018 [facility] Unit available 3:00 AM [facility] 10/02/2018 HOSPITAL 0300 Blood Product [id number] 09/28/2018 [facility] Code 1:21 PM [facility] Unit Status [facility] Specimen Anatomical Collection Method Collection Time Receive d Time (Source) Location / / Volume Laterality 09/28/2018 11:11 09/28/2018 AM CORRECTIONAL MEDICINE PHYSICIAN 11:44 AM CORRECTIONAL MEDICINE PHYSICIAN Juan Vásquez MD LABORATORY Performing Organization Address City/State/ZIP Code Phon e Number M [facility] [address] [place], [place] [address] [facility] [address] [place] [address], [facility] [address] [place], [place] [address], [facility] [phone] Potassium (09/28/2018 11:11 AM CORRECTIONAL MEDICINE PHYSICIAN) P athologist Signature Potassium 4.0 3.4 - 5.3 09/28/2018 [facility] mmol/L 12:22 PM CORRECTIONAL MEDICINE PHYSICIAN [facility] Specimen Anatomical Collection Method Collection Time Receive d Time (Source) Location / / Volume Laterality Blood specimen 09/28/2018 11:11 8 (specimen) AM CORRECTIONAL MEDICINE PHYSICIAN 11:43 AM CORRECTIONAL MEDICINE PHYSICIAN Ramiro Card MD LAB - BLOOD ORDERABLES Performing Organization Address City/State/ZIP Code Phon e Number M [facility] [address] [place] [address] [phone] [facility] [address] [place] [address], [place] [phone] Lipid panel (09/28/2018 11:11 AM CORRECTIONAL MEDICINE PHYSICIAN) Analysis Performed At Patho logist Time Signature Cholesterol 143 <200 mg/dL 09/28/2018 [facility] 12:22 PM [facility] Triglycerides 115 <150 mg/dL 09/28/2018 [facility] 12:24 PM [facility] HDL Cholesterol 68 >39 mg/dL 09/28/2018 [facility] 12:24 PM [facility] LDL Cholesterol 52 <100 mg/dL 09/28/2018 [facility] Calculated 12:24 PM [facility] Comment: Desirable: <100 mg/dl Non HDL Cholesterol 75 <130 mg/dL 09/28/2018 12:24 PM [facility] Specimen Anatomical Collection Method Collection Time Receive d Time (Source) Location / / Volume Laterality Blood specimen 09/28/2018 11:11 8 (specimen) AM CORRECTIONAL MEDICINE PHYSICIAN 11:43 AM CORRECTIONAL MEDICINE PHYSICIAN Juan Vásquez MD LAB - BLOOD ORDERABLES Performing Organization Address City/State/ZIP Code Phon e Number M [facility] [address] [place] [address] [facility] [address] [place] [address], [place] [phone] (ABNORMAL) ABO/Rh type and screen (09/28/2018 11:11 AM CORRECTIONAL MEDICINE PHYSICIAN) Component Value Ref Test Analysis Performed At [facility] gist Range Method Time Signature Units Ordered 2 09/28/2018 [facility] 11:54 AM [facility] ABO O 09/28/2018 [facility] 12:28 PM [facility] RH(D) Pos [facility] Antibody Screen Pos (A) 09/28/2018 [facility] 12:28 PM [facility] Test Valid Only [place] 09/28/2018 [facility] At [facility] 11:47 AM [facility] Specimen Expires 10/01/2018 09/28/2018 [facility] 11:47 AM [facility] Crossmatch Red Blood Cells 09/28/2018 [facility] 11:54 AM [facility] Blood Bank Delay in availability of Red Blood Cells called to 09/28/2018 [facility] Comment Esme in Preop at 1228 re 12:37 PM [facility] Antibody ANTI-Rosa 09/28/2018 [facility] Identification 1:26 PM [facility] Antigen Type [place] Negative 09/28/2018 [facility] 1:26 PM [facility] Specimen Anatomical Collection Method Collection Time Receive d Time (Source) Location / / Volume Laterality Blood specimen 09/28/2018 11:11 8 (specimen) AM CORRECTIONAL MEDICINE PHYSICIAN 11:44 AM CORRECTIONAL MEDICINE PHYSICIAN Juan Vásquez MD LAB - BLOOD BANK TEST ORDER Performing Organization Address City/State/ZIP Code Phon e Number M [facility] [address] [place] [address] [facility] [address] [place] [address], [place] [phone] (ABNORMAL) Hemoglobin A1c (09/28/2018 11:11 AM CORRECTIONAL MEDICINE PHYSICIAN) P athologist Signature Hemoglobin A1C 5.7 (H) 0 - 5.6 % 09/28/2018 [facility] 12:08 PM [facility] Comment: Normal <5.7% Prediabetes 5.7-6.4% ??Diab etes 6.5% or higher - adopted from ADA consensus guidelines. Specimen Anatomical Collection Method Collection Time Receive d Time (Source) Location / / Volume Laterality Blood specimen 09/28/2018 11:11 8 (specimen) AM CORRECTIONAL MEDICINE PHYSICIAN 11:43 AM CORRECTIONAL MEDICINE PHYSICIAN Juan Vásquez MD LAB - BLOOD ORDERABLES Performing Organization Address City/State/ZIP Code Phon e Number [facility] [address] [place] [address] [facility] [address] [place] [address], [place] [phone] (ABNORMAL) Creatinine (09/28/2018 11:11 AM CORRECTIONAL MEDICINE PHYSICIAN) P athologist Signature Creatinine 1.46 (H) 0.66 - 09/28/2018 [facility] 1.25 mg/dL 12:22 PM [facility] GFR Estimate 47 (L) >60 09/28/2018 [facility] mL/min/1.7 12:[address] Comment: Non GFR Calc GFR Estimate If 57 (L) >60 mL/min/1.7m2 09/28/2018 12:22 PM [facility] Comment: GFR Calc Specimen Anatomical Collection Method Collection Time Receive d Time (Source) Location / / Volume Laterality Blood specimen 09/28/2018 11:11 8 (specimen) AM CORRECTIONAL MEDICINE PHYSICIAN 11:43 AM CORRECTIONAL MEDICINE PHYSICIAN Juan Vásquez MD LAB - BLOOD ORDERABLES Performing Organization Address City/State/ZIP Code Phon e Number [facility] [address] [place] [address] [phone] [facility] [address] [place] [address], [place] [phone] LAB RESULT - HIM SCAN (09/24/2018 12:00 AM CORRECTIONAL MEDICINE PHYSICIAN) Specimen (Source) Anatomical Location Collection Method / Collectio n Time Received Time / Laterality Volume 09/24/2018 Narrative This result has an attachment that is no t available. Provider Outside NON-BEAKER LAB TESTING EKG CARDIAC - HIM SCAN (09/24/2018 12:00 AM CORRECTIONAL MEDICINE PHYSICIAN) Specimen (Source) Anatomical Location Collection Method / [...] (TYLENOL) tablet 975 Given 09/29/2018 5:41 AM CORRECTIONAL MEDICINE PHYSICIAN 975 mg mg 975 mg, Oral, EVERY 8 HOURS, First dose on Thu09/28/18 at 2200, For 3 days, Do not use if patient has an active opioid/acetaminophen combined analgesic product ordered for pain. Maximum acetaminophen dose from all sources = 75 mg/kg/day not to exceed 4 grams/day., Post-procedure Given 09/28/2018 9:50 PM CORRECTIONAL MEDICINE PHYSICIAN 975 mg apixaban ANTICOAGULANT (ELIQUIS) tablet 2.5 Given 09/29/2018 8:22 AM CORRECTIONAL MEDICINE PHYSICIAN 2.5 mg mg 2.5 mg, Oral, 2 TIMES DAILY, First dose on Thu09/29/18 at 0900 atorvastatin (LIPITOR) tablet 40 mg Given 09/28/2018 9:50 PM CORRECTIONAL MEDICINE PHYSICIAN 40 mg 40 mg, Oral, EVERY EVENING, First dose on Thu09/28/18 at 2000 ceFAZolin (ANCEF) intermittent infusion Given 09/29/2018 5:4 1 AM CORRECTIONAL MEDICINE PHYSICIAN 2 g 200 mL/hr 2 g in 100 mL dextrose PRE-MIX Routine, 2 g, Intravenous, EVERY 8 HOURS, First dose on Thu09/28/18 at 2100, For 2 doses, Indications: Perioperative Pharmacoprophylaxis, Post-procedure Given 09/28/2018 9:55 PM CORRECTIONAL MEDICINE PHYSICIAN 2 g 200 mL/hr fentaNYL (PF) (SUBLIMAZE) injection 100 mcg Given 09/28/2018 12:07 PM CORRECTIONAL MEDICINE PHYSICIAN 50 mcg 100 mcg, Intravenous, ONCE, On Thu09/28/18 at 1100, For 1 dose, For ordered IV doses 1-100 mcg give IV Push undiluted over a minimum of 3-5 minutes. fentaNYL (PF) (SUBLIMAZE) injection 25-5 0 mcg Given 09/28/2018 4:04 PM CORRECTIONAL MEDICINE PHYSICIAN 25 mcg 25-50 mcg, Intravenous, EVERY 2 [...] 3-5 minutes., PACU Given 09/28/2018 3:50 PM CORRECTIONAL MEDICINE PHYSICIAN 25 mcg Given 09/28/2018 3:41 PM CORRECTIONAL MEDICINE PHYSICIAN 25 mcg hydrALAZINE (APRESOLINE) injection 2.5-5 mg Given 09/28/2018 4:10 PM CORRECTIONAL MEDICINE PHYSICIAN 5 mg 2.5-5 mg, Intravenous, EVERY 10 [...] solution 80 mL Given 09/29/2018 11:37 AM CORRECTIONAL MEDICINE PHYSICIAN 80 mLs 80 mL, Intravenous, ONCE, On Thu09/29/18 at 1130, For 1 dose lactated ringers infusion [place] Bag 09/28/2018 12:16 PM CORRECTIONAL MEDICINE PHYSICIAN 25 mL/hr at 25 mL/hr, Intravenous, CONTINUOUS, IF patient NOT on dialysis., Pre-procedure, Starting on Thu09/28/18 at 1115, Until Thu09/28/18 at 1457 lactated ringers infusion New Bag 09/29/2018 2:48 AM CORRECTIONAL MEDICINE PHYSICIAN 125 mL/hr at 125 mL/hr, Intravenous, CONTINUOUS, NOT for patient on renal dialysis. Saline lock after 1 liter if taking PO fluids., Post-procedure, Starting on Thu09/28/18 at 1800, Until Thu09/29/18 at 1753 Rate/Dose Verify 09/29/2018 12:39 AM CORRECTIONAL MEDICINE PHYSICIAN 125 mL/hr New Bag 09/28/2018 6:31 PM CORRECTIONAL MEDICINE PHYSICIAN 125 mL/hr lidocaine 1 % 1 mL Given 09/28/2018 12:00 PM CORRECTIONAL MEDICINE PHYSICIAN 0.3 mLs 1 mL, Other, EVERY 1 HOUR PRN, mild pain with VAD insertion or accessing implanted port, Starting on Thu09/28/18 at 1101, Do NOT give if patient has a history of allergy to any local anesthetic or any louie product. MAX dose 1 mL subcutaneous OR intradermal in divided doses., Pre-procedure lisinopril (PRINIVIL/ZESTRIL) tablet 5 m g Given 09/29/2018 8:21 AM CORRECTIONAL MEDICINE PHYSICIAN 5 mg 5 mg, Oral, 2 TIMES DAILY, First dose on Thu09/28/18 at 2100 Given 09/28/2018 9:52 PM CORRECTIONAL MEDICINE PHYSICIAN 5 mg melatonin tablet 10 mg Given 09/29/2018 2:48 AM CORRECTIONAL MEDICINE PHYSICIAN 10 mg 10 mg, Oral, AT BEDTIME PRN, sleep, Starting on Thu09/29/18 at 0044 metoprolol tartrate (LOPRESSOR) tablet 5 0 mg Given 09/29/2018 8:21 AM CORRECTIONAL MEDICINE PHYSICIAN 50 mg 50 mg, Oral, 2 TIMES DAILY, First dose on Thu09/28/18 at 2100 Given 09/28/2018 9:50 PM CORRECTIONAL MEDICINE PHYSICIAN 50 mg midazolam (VERSED) injection 2 mg Given 09/28/2018 12:10 PM CORRECTIONAL MEDICINE PHYSICIAN 1 mg 2 mg, Intravenous, ONCE, On Thu09/28/18 at 1100, For 1 dose, For ordered IV doses 0.1-2.5 mg give IV Push slowly titrated over a minimum of 2 minutes. Dilute each 1mg in 4mL of NS. Given 09/28/2018 12:07 PM CORRECTIONAL MEDICINE PHYSICIAN 1 mg oxyCODONE (ROXICODONE) tablet 5 mg Given 09/28/2018 10:49 PM CORRECTIONAL MEDICINE PHYSICIAN 5 mg 5 mg, Oral, EVERY 3 HOURS PRN, other, pain control or improvement in physical function. Hold dose for analgesic side effects., Starting on Thu09/28/18 at 1751, Notify provider to assess for uncontrolled pain or analgesic side effects. Hold while on DOOR MAKER or with regular IV opioid dosing. Maximum total is 40 mg in 24 hours., Post-procedure Saline flush Given 09/29/2018 11:37 AM CORRECTIONAL MEDICINE PHYSICIAN 80 mLs Intravenous, 80 mL, ONCE, On Thu09/29/18 at 1130, For 1 dose sodium chloride (PF) 0.9% PF flush 3 mL Given 09/28/2018 9:58 PM CORRECTIONAL MEDICINE PHYSICIAN 3 mLs 3 mL, Intracatheter, EVERY 8 HOURS, First dose on Thu09/28/18 at 2200, And Q1H PRN, to lock peripheral IV dormant line., Post-procedure terazosin (HYTRIN) capsule 5 mg Given 09/28/2018 10:49 PM CORRECTIONAL MEDICINE PHYSICIAN 5 mg 5 mg, Oral, AT BEDTIME, First dose on Thu09/28/18 at 2200 documented in this encounter Active and Recently Administered Medications Times are shown in CORRECTIONAL MEDICINE PHYSICIAN. Scheduled Medication Order 09/27/2018 09/28/2018 09/29/2018 acetaminophen [...] Volume Adjustment - Provider: Mattie M Angelats, BREAD ICER HUMAN RESOURCES RECEPTIONIST)1432 (Anesthesia Volume Adjustment - Provider: Mattie Marmolejo, BREAD ICER HUMAN RESOURCES RECEPTIONIST) at 25 mL/hr, Intravenous, CONTINUOUS, IF patient [...] analgesic side effects. Hold whil e on DOOR MAKER or with regular IV opioid dosing. Maximum total is 40 mg in 24 hours., Post-procedure sodium chloride (PF) 0.9% PF flush 3 mL 3 mL, Intracatheter, EVERY 1 HOUR PRN, l ine flush, for peripheral IV flush post IV meds, Starting Thu09/28/18 at 1751, Post-procedure documented in this encounter Care Teams Property Controller Relationship Specialty Start Date End Date [facility], [facility] PCP - General 05/12/[address] [place] [id number] documented as of this encounter
--- OUTSIDE RECORDS SUMMARY | 2022-08-14 11:16 | XMS_ITS | Encounter Summary ---
:1940 Author Organization [place] Address [address] [place] [address] Care Team Providers Name Role Phone Clinic, [facility] Primary Care Provider [phone] Reason for Visit Auth/Cert Specialty Diagnoses / Procedures Referred By Contact Refer red To Contact Surgery Diagnoses DESCENDING THORACIC AORTIC ANEURYSM Sh Periop Services Procedures ENDOVASCULAR REPAIR ANEURYSM THORACIC AORTIC [address] [place] [address] Phone: Referral ID Status Reason Start Date Expiration Date Visits Requ ested Visits Authorized [id number] 1 1 Encounter Details Date Type Department Care Team Description 11/05/2018 Anesthesia Event [facility] Fela Conrad PeriOP Ser vices [place] [address] ANESTHESIOLOGISTS [place] [phone] [address] [phone] [place] [id number] (Wo rk) Anesthesia Record Procedure Summary Procedure [...] with oral Ivon Aguilar airway; Ease of PIPELINE CONTROLLER CROZE CUTTER Intubation: Easy; Airway Size: 8; Cuffed; Oral; Blade Type: Glidescope; Blade Size: 4; Place by: [place]; Insertion Attempts: 1; Secured at (cm)to lip: 23 cm; Breath Sounds: Equal, clear and bilateral; End Tidal CO2: Present; Dentition: Intact, Unchanged; Grade View of Cords: 1; Airway Adjuncts: [place] scope Left Groin Interventional #1; 09/28/18; 1500 [...] Fela Conrad November 05, 2018 3:25 PM TER HELPER Anesthesia Procedure Notes - Fela Conrad - 11/05/2018 3:24 PM BLASTER HELPER Associated Order(s): Central line catheter placement [...] flushed: Yes Comments: Central Line No complications. TER HELPER Anesthesia Procedure Notes - Fela Conrad - 11/05/2018 3:23 PM BLASTER HELPER Associated Order(s): A Line Catheter Placement [...] waveform: Yes Comments: Arterial Line No complications TER HELPER Anesthesia Preprocedure Evaluation - Fela Conrad [...] and alternatives discussed with: Patient.. Fela Conrad TER HELPER documented in this encounter Miscellaneous Notes [...] APRN CRNA November 05, 2018 12:44 PM TER HELPER documented in this encounter Plan of Treatment Not on filedocumented as of this encounter Procedures Procedure Name Priority Date/Time Associated Diagnosis Comme nts FV AN CA PA CENTRAL Routine 11/05/2018 3:24 PM BLASTER HELPER LINE CATHETER PROCEDURE Procedure Note - [...] LINE CATHETER PLACEMENT Routine 11/05/2018 3:23 PM BLASTER HELPER Procedure Note - Dariel Conrad - [...] clindamycin (CLEOCIN) infusion Given 11/05/2018 10:28 AM BLASTER HELPER 900 mg Routine, PRN, Starting on Thu11/05/18 at 1028, Anesthesia Intra-op dexamethasone (DECADRON) injection Given 11/05/2018 10:25 AM BLASTER HELPER 4 mg PRN, Administer over 1 Minutes, Starting on Thu11/05/18 at 1025, Anesthesia Intra-op ePHEDrine injection Given 11/05/2018 10:55 AM BLASTER HELPER 10 mg PRN, Starting on Thu11/05/18 at 1025, Anesthesia Intra-op Given 11/05/2018 10:38 AM BLASTER HELPER 5 mg Given 11/05/2018 10:25 AM BLASTER HELPER 5 mg fentaNYL (PF) (SUBLIMAZE) injection Given 11/05/2018 11:48 AM BLASTER HELPER 50 mcg PRN, Administer over 3-5 Minutes, Starting on Thu11/05/18 at 1010, Anesthesia Intra-op Given 11/05/2018 11:17 AM BLASTER HELPER 50 mcg Given 11/05/2018 10:10 AM BLASTER HELPER 100 mcg glycopyrrolate (ROBINUL) injection Given 11/05/2018 12:09 PM BLASTER HELPER 0.2 mg PRN, Administer over 1-2 Minutes, Starting on Thu11/05/18 at 1055, Anesthesia Intra-op Given 11/05/2018 12:07 PM BLASTER HELPER 0.4 mg Given 11/05/2018 10:55 AM BLASTER HELPER 0.2 mg heparin (porcine) injection Given 11/05/2018 10:59 AM BLASTER HELPER 7,000 Units PRN, Starting on Thu11/05/18 at 1059, Anesthesia Intra-op lactated ringers infusion New Bag 11/05/2018 7:30 AM BLASTER HELPER Intravenous, CONTINUOUS PRN, Anesthesia Intra-op, Starting on Thu11/05/18 at 0957, Until Thu11/05/18 at 1244 lactated ringers infusion New Bag 11/05/2018 9:57 AM BLASTER HELPER CONTINUOUS PRN, Anesthesia Intra-op, Starting on Thu11/05/18 at 0730, Until Thu11/05/18 at 1244 New Bag 11/05/2018 7:30 AM BLASTER HELPER lidocaine 2% injection (MDV) Given 11/05/2018 10:14 AM BLASTER HELPER 80 mg PRN, Starting on Thu11/05/18 at 1014, Anesthesia Intra-op neostigmine (PROSTIGMINE) injection Given 11/05/2018 12:09 PM BLASTER HELPER 2 mg Intravenous, PRN, Starting on Thu11/05/18 at 1207, Anesthesia Intra-op Given 11/05/2018 12:07 PM BLASTER HELPER 2 mg nitroGLYcerin 25 mg in D5W 250 mL infusi on Given 11/05/2018 12:39 PM BLASTER HELPER 10 mcg PRN, Starting on Thu11/05/18 at 1113, Anesthesia Intra-op Given 11/05/2018 12:38 PM BLASTER HELPER 15 mcg Given 11/05/2018 11:15 AM BLASTER HELPER 10 mcg ondansetron (ZOFRAN) injection Given 11/05/2018 12:07 PM BLASTER HELPER 4 mg PRN, Administer over 2-5 Minutes, Starting on Thu11/05/18 at 1207, Anesthesia Intra-op phenylephrine (CHRISTINE-SYNEPHRINE) injection Bolus 11/05/2018 11:23 AM BLASTER HELPER 50 mcg CONTINUOUS PRN, Starting on Thu11/05/18 at 1120, Anesthesia Intra-op New Bag 11/05/2018 11:20 AM BLASTER HELPER 50 mcg phenylephrine 0.2 mg/mL Restarted 11/05/2018 11:39 AM 0.2 mcg/kg/min 5.06 mL/hr (mcg/kg/min) drip BLASTER HELPER CONTINUOUS PRN, Starting on Thu11/05/18 at 1024, Anesthesia Intra-op Rate/Dose Change 11/05/2018 11:27 AM BLASTER HELPER 0.2 mcg/kg/min 5.06 mL/hr Restarted 11/05/2018 11:20 AM BLASTER HELPER 0.3 mcg/kg/min 7.59 mL/hr propofol (DIPRIVAN) injection 10 mg/mL v ial Given 11/05/2018 11:17 AM BLASTER HELPER 30 mg PRN, Starting on Thu11/05/18 at 1014, Anesthesia Intra-op Given 11/05/2018 10:14 AM BLASTER HELPER 170 mg rocuronium (ZEMURON) injection Given 11/05/2018 10:15 AM BLASTER HELPER 50 mg PRN, Starting on Thu11/05/18 at 1015, Anesthesia Intra-op sodium chloride 0.9% infusion New Bag 11/05/2018 9:57 AM BLASTER HELPER CONTINUOUS PRN, Anesthesia Intra-op, Starting on Thu11/05/18 at 0957, Until Thu11/05/18 at 1244 vecuronium (NORCURON) injection Given 11/05/2018 11:23 AM BLASTER HELPER 1 mg PRN, Starting on Thu11/05/18 at 1031, Anesthesia Intra-op Given 11/05/2018 10:31 AM BLASTER HELPER 2 mg documented in this encounter Additional Health Concerns Infection Onset Date Last Indicated Resolved Time MRSAComment: Positive 02/17/11 and 09/22/12 11/05/2018 019 Negatives 05/03/14 (HE), 12/01/14 (HE) documented as of this encounter Care Teams Muck Hauler Relationship Specialty Start Date End Date [facility], [facility] PCP - General 05/12/17 [address] [place] [address] documented as of this encounter
--- OUTSIDE RECORDS SUMMARY | 2022-08-14 11:16 | XMS_ITS | Encounter Summary ---
:1940 Author Organization [place] Address [facility] [place] [place] [address] Care Team Providers Name Role Phone [facility], [facility] Primary Care Provider [phone] Encounter Details Date Type Department Care Team Description 10/21/2018 Telephone [facility] Sophie piper, Juan Nava MD [facility] [place] [address] [place] [address] [place] [address] [phone] Social History Tobacco Use Types Packs/Day Years [...] REPAIR WITH [employer] Location of surgery: [facility] Date and time of surgery: 11/05/18 @ 8:30AM Surgeon: DR. VÁSQUEZ AND DR. GARVIN Pre-Op Appt Date: PT TO SCHEDULE AT [facility] Post-Op Appt Date: PT TO SCHEDULE Packet sent out: MAILED 10/25/18 Pre-cert/Authorization completed: Yes Date: 10/28/18 I have notified IR, ICU and anesthesia about this case. I have verified that anesthesia agrees with 3 day Eliquis hold because pt will need spinal drain. Aruna Simmons, Supervisor Building Maintenance TRONIC SYSTEMS SECURITY ASSESSMENT Telephone Encounter - Aruna Simmons - 10/25/2018 4:25 PM CST Spoke with daughter, Raquel, and she will have her dad come on 11/03/18 @ 9:00 to the [facility] lab for type and screen. I called the lab to make the appt for them. Aruna Simmons, Supervisor Building Maintenance TRONIC SYSTEMS SECURITY ASSESSMENT Telephone Encounter - Sondra Johnson RN - 10/22/2018 12:50 PM CST RN called [facility] Blood Bank and informed them of pt's upcoming surgery and request for 2 units of packed RBCs are available. Discussed with Blood Bank pt has RBC antibodies. Per Pam in blood bank, pt needs to have a type and screen drawn here at [facility] 48 hours prior to procedure. Pam stated pt could makea lab appointment on 11/03/18 or morning of 11/04/18. Pt's lab from 09/28/18 cannot be used as reference. Order entered for ABO/type and screen. Will route back to surgery scheduling. SHASTA Winkler, RN [employer]ONIC SYSTEMS SECURITY ASSESSMENT Telephone Encounter - Aruna Simmons - 10/21/2018 [...] prior to the upcoming surgery. Aruna Simmons, Supervisor Building Maintenance TRONIC SYSTEMS SECURITY ASSESSMENT documented in this encounter Plan of Treatment Not on filedocumented as of this encounter Results (ABNORMAL) ABO/Rh type and screen (11/03/2018 9:10 AM ELECTRONIC SYSTEMS SECURITY ASSESSMENT) [facility] gist Method Time Signature Units Ordered 4 11/05/2018 [place] 1:30 PM [facility] ABO O 11/03/2018 [place] 10:15 AM [facility] RH(D) Pos [facility] Antibody Pos (A) 11/03/2018 [place] Screen 10:15 AM [facility] Test Valid [place] 11/03/2018 [place] Only At [facility] 9:31 AM [facility] Specimen 11/06/2018 11/03/2018 [place] Expires 9:31 AM [facility] Crossmatch Red Blood 11/03/2018 [place] Cells 9:31 AM [facility] Specimen Anatomical Collection Method Collection Time Receive d Time (Source) Location / / Volume Laterality Blood specimen 11/03/2018 9:10 AM 019 9:19 (specimen) ELECTRONIC SYSTEMS SECURITY ASSESSMENT AM ELECTRONIC SYSTEMS SECURITY ASSESSMENT Juan Vásquez MD LAB - BLOOD BANK TEST ORDER Performing Organization Address City/State/ZIP Code Phon e Number M [facility] [address] [place] [address] [phone] [facility] [address] [place] [address], [facility] [phone] documented in this encounter Visit Diagnoses Diagnosis Abdominal aortic aneurysm (AAA) without rupture - Primary Encounter for pre-operative laboratory t esting Preoperative examination, unspecified documented in this encounter Additional Health Concerns Infection Onset Date Last Indicated Resolved Time MRSAComment: Positive 02/17/11 and 09/22/12 11/05/2018 019 Negatives 05/03/14 (HE), 12/01/14 (HE) documented as of this encounter Care Teams Health Inspector Food Relationship Specialty Start Date End Date [facility] [place] PCP - General 05/12/17 [address] [place] [address] documented as of this encounter
--- OUTSIDE RECORDS SUMMARY | 2022-08-14 11:16 | XMS_ITS | Encounter Summary ---
:1940 Author Organization [place] Address [address] [facility] [place] [address] Care Team Providers Name Role Phone Clinic, [facility] Primary Care Provider [phone] Reason for Visit Reason Onset Date Comments Clinic Care Coordination - Follow-up 10/01/2018 Encounter Details Date Type Department Care Team Description 10/01/2018 Telephone [facility] Juan Lewis [employer] C are Coordination Vascular Clinic Félix Nava MD - Follow-up [address] [place] [phone] [place] [id number] Social History Tobacco Use Types Packs/Day Years [...] schedule an OV and he will call [facility] on to discuss surgical plan after he has spoken with IR and the Anesthesia dept. Attempted to reach louise García with update and provided direct number for any further questions. SHASTA Winkler, RN NESS DEVELOPMENT CONSULTANT Telephone Encounter - Sondra Johnson RN - [...] appointment with Dr. Lewis. SHASTA Winkler, RN NESS DEVELOPMENT CONSULTANT Telephone Encounter - Sondra Johnson RN - 10/01/2018 1:[address] Lewis's request, contact pt's daughter Raquel with an update on care plan. Raquel updated that Dr. Lewis will contact her on Thursday with a new plan for her dad. Raquel was in agreement with this plan. SHASTA Winkler, RN NESS DEVELOPMENT CONSULTANT documented in this encounter Plan of Treatment Not on filedocumented as of this encounter Visit Diagnoses Not on filedocumented in this encounter Care Teams Ecclesiastical Worker Relationship Specialty Start Date End Date [facility] PCP - General 05/12/[address] [place] [id number] documented as of this encounter
--- OUTSIDE RECORDS SUMMARY | 2022-08-14 11:16 | XMS_ITS | Encounter Summary ---
:1940 Author Organization [place] Address [address] [place] [address] Care Team Providers Name Role Phone Clinic, [facility] Primary Care Provider [phone] Reason for Visit Auth/Cert Specialty Diagnoses / Procedures Referred By Contact Refer red To Contact Surgery Diagnoses DESCENDING THORACIC AORTIC ANEURYSM Sh Periop Services Procedures ENDOVASCULAR REPAIR ANEURYSM THORACIC AORTIC [address], [address] [place] [address] Phone: Referral ID Status Reason Start Date Expiration Date Visits Requ ested Visits Authorized [id number] 1 1 Encounter Details Date Type Department Care Team Description 11/03/2018 Hospital Encounter [facility] Juan Lewis En counter for [facility] MD Elijah pre-operative [address] laboratory testing [place] [address] [address] [place] [address] Social History Tobacco Use Types Packs/Day Years [...] AM Encounter for Resul ts for this [place] pre-operative procedure are in laboratory testing the resul ts section. BLOOD COMPONENT Routine 11/03/2018 9:10 AM Encounter for Resul ts for this [place] pre-operative procedure are in laboratory testing the resul ts section. BLOOD COMPONENT Routine 11/03/2018 9:10 AM Encounter for Resul ts for this [place] pre-operative procedure are in laboratory testing the resul ts section. BLOOD COMPONENT Routine 11/03/2018 9:10 AM Encounter for Resul ts for this [place] pre-operative procedure are in laboratory testing the resul ts section. ABO/RH TYPE AND Routine 11/03/2018 9:10 AM Encounter for Resul ts for this SCREEN [place] pre-operative procedure are in laboratory testing the resul ts section. documented in this encounter Results Blood component (11/03/2018 9:10 AM [place]) [facility] Method Time Signature Unit Number [id number] 11/05/2018 [facility] 7:55 AM [facility] Blood Red Blood Cells 11/05/2018 [facility] Component LeukoReduced 7:55 AM [facility] (Part 2[facility] HOSPITAL Division 00 11/05/2018 [facility] Number 7:55 AM [facility] Status of No longer 11/07/2018 [facility] Unit available 3:00 AM [facility] 11/07/2018 0300 [facility] Blood Product [id number] 11/05/2018 [facility] Code 7:55 AM [facility] Unit Status RET [facility] Specimen Anatomical Collection Method Collection Time Receive d Time (Source) Location / / Volume Laterality 11/03/2018 9:10 AM 9 9:19 [place] AM [facility] Juan Lewis MD LABORATORY Performing Organization Address City/State/ZIP Code Phon e Number [place] [address] [address] [place], [place] [address] [facility] [address] [place] [address], [facility] [address] [employer], [place] [address], [facility] [phone] Blood component (11/03/2018 9:10 AM [place]) [facility] Method Time Signature Unit Number [id number] 11/05/2018 [facility] 7:55 AM [facility] Blood Red Blood 11/05/2018 [facility] Component Cells 7:55 AM [facility] Leukocyte HOSPITAL Reduced Division 00 11/05/2018 [facility] Number 7:55 AM [facility] Status of No longer 11/07/2018 [facility] Unit available 3:00 AM [facility] 11/07/2018 HOSPITAL 0300 Blood Product [id number] 11/05/2018 [facility] Code 7:55 AM [facility] Unit Status RET [facility] Specimen Anatomical Collection Method Collection Time Receive d Time (Source) Location / / Volume Laterality 11/03/2018 9:10 AM 9 9:19 [place] AM [facility] Juan Lewis MD LABORATORY Performing Organization Address City/State/ZIP Code Phon e Number M [facility] [address] [place], [place] [address] [facility] [address] [place] [address], [facility] [address] [employer], [place] [address], [facility] [phone] Blood component (11/03/2018 9:10 AM [facility]) [facility] Method Time Signature Unit Number [id number] 11/03/2018 [facility] 10:39 AM [facility] Blood Red Blood 11/03/2018 [facility] Component Cells 10:39 AM [facility] Reduced Division 00 11/03/2018 [facility] Number 10:39 AM [facility] Status of No longer 11/07/2018 [facility] Unit available 3:00 AM [facility] 11/07/2018 HOSPITAL 0300 Blood Product [id number] 11/03/2018 [facility] Code 10:39 AM [facility] Unit Status RET [facility] Specimen Anatomical Collection Method Collection Time Receive d Time (Source) Location / / Volume Laterality 11/03/2018 9:10 AM 9 9:19 [place] AM [facility] Juan Lewis MD LABORATORY Performing Organization Address City/State/ZIP Code Phon e Number M [facility] [address] [place], [place] [address] [facility] [address] [place] [address], [facility] [phone] [address], [facility] [phone] Blood component (11/03/2018 9:10 AM [place]) [facility] Method Time Signature Unit Number [id number] 11/03/2018 [facility] 10:39 AM [facility] Blood Red Blood 11/03/2018 [facility] Component Cells 10:39 AM [facility] Leukocyte HOSPITAL Reduced Division 00 11/03/2018 [facility] Number 10:39 AM [facility] Status of No longer 11/07/2018 [facility] Unit available 3:00 AM [facility] 11/07/2018 HOSPITAL 0300 Blood Product [id number] 11/03/2018 [facility] Code 10:39 AM [facility] Unit Status RET [facility] Specimen Anatomical Collection Method Collection Time Receive d Time (Source) Location / / Volume Laterality 11/03/2018 9:10 AM 9 9:19 [place] AM [facility] Juan Lewis MD LABORATORY Performing Organization Address City/State/ZIP Code Phon e Number [place] [address] [address] [place] [phone] [place] [address] [place], [place] [phone] [place] [address], [facility] [phone] (ABNORMAL) ABO/Rh type and screen (11/03/2018 9:10 AM [place]) [facility] Signature Units Ordered 4 11/05/2018 [facility] 1:30 PM [facility] ABO O 11/03/2018 [facility] 10:15 AM [facility] RH(D) Pos [facility] Antibody Pos (A) 11/03/2018 [facility] Screen 10:15 AM [facility] Test Valid [place] 11/03/2018 [facility] Only At [facility] 9:31 AM [facility] Specimen 11/06/2018 11/03/2018 [facility] Expires 9:31 AM [facility] Crossmatch Red Blood 11/03/2018 [facility] Cells 9:31 AM [facility] Specimen Anatomical Collection Method Collection Time Receive d Time (Source) Location / / Volume Laterality Blood specimen 11/03/2018 9:10 AM 019 9:19 (specimen) [place] AM [facility] Juan Lewis MD LAB - BLOOD BANK TEST ORDER Performing Organization Address City/State/ZIP Code Phon e Number M [facility] [address] [place] [address] [phone] [facility] [address] [place] [address], [facility] [phone] documented in this encounter Visit Diagnoses Diagnosis Encounter for pre-operative laboratory t esting Preoperative examination, unspecified documented in this encounter Care Teams Director Of Real Estate Relationship Specialty Start Date End Date [facility], [facility] PCP - General 05/12/[address] [place] [address] documented as of this encounter
--- OUTSIDE RECORDS SUMMARY | 2022-08-14 11:16 | XMS_ITS | Encounter Summary ---
:1940 Author Organization [place] Address [address] [place] [address] Care Team Providers Name Role Phone [facility] Beatty Primary Care Provider [phone] Encounter Details Date Type Department Care Team [...] on filedocumented in this encounter Care Teams Olap Developer Relationship Specialty Start Date End [facility] - General 05/12/[address] [place] [address] documented as of this encounter
--- OUTSIDE RECORDS SUMMARY | 2022-08-14 11:16 | XMS_ITS | Encounter Summary ---
:1940 Author Organization [place] Address [address] [facility] [place] [address] Care Team Providers Name Role Phone [facility], [facility] Primary Care Provider [phone] Reason for Visit Surgical Procedure Inpatient (Routine) - Closed Specialty Diagnoses / Procedures Referred By Contact Refer red To Contact Surgery Diagnoses AAA Juan Lewis MD Saylor, Howard Leroy, Procedures *OR 51* DR. ALANIZ TO ASSIST WITH ENDOVASCULAR REPAIR OF AAA WITH [employer]FT [address] [place] [address] [address] [place] [address] Phone: Fax: Referral ID Status Reason Start Date Expiration Date Visits Requ ested Visits Authorized [id number] Closed 09/28/2018 09/28/2019 1 1 Encounter Details Date Type Department Care Team Description 09/28/2018 Office Visit [facility] SURGERY [facility] Juan Lewis MD [address] [place] [address] Fellow, Sh Surg Cons Social History Tobacco [...] on filedocumented in this encounter Care Teams Build Technician Relationship Specialty Start Date End Date [facility], [facility] PCP - General 05/12/[address] [place], [place] [phone] documented as of this encounter
--- OUTSIDE RECORDS SUMMARY | 2022-08-14 11:17 | XMS_ITS | Encounter Summary ---
:1940 Author Organization [place] Address [address] [place] [address] Care Team Providers Name Role Phone [facility] Primary Care Provider Reason for Referral - Closed Specialty Diagnoses / Procedures Referred By Contact Refer red To Contact Diagnoses Paroxysmal atrial fibrillation (H) Radha Galan MD Procedures Zio Patch Monitor [address] [place] [address] Referral ID Status Reason Start Date Expiration Date Visits Requ ested Visits Authorized [id number] Closed 11/25/2017 11/25/2018 1 1 TH LEAD Reason for Visit Reason Comments Atrial Fib new Dx - Closed Specialty Diagnoses / Procedures Referred By Contact Refer red To Contact Diagnoses Paroxysmal atrial fibrillation (H) Radha Galan MD [address] [place] [address] Referral ID Status Reason Start Date Expiration Date Visits Requ ested Visits Authorized [id number] Closed 06/11/2017 06/11/2018 1 1 Encounter Details Date Type Department Care Team Description 11/11/2017 Office Visit [facility] Radha Galan Paroxys [facility] atrial [facility] Tram WELSH fibrillation (H) [address] [facility] [address] [place] [address] [place] [address] [phone] Social History Tobacco Use Types Packs/Day Years [...] Comments Blood Pressure 146/78 11/11/2017 8:56 AM HEALTH LEAD Pulse 54 11/11/2017 8:56 AM HEALTH LEAD Temperature - - Respiratory Rate - - Oxygen Saturation - - Inhaled Oxygen Concentration - - Weight 88 kg (194 lb) 11/11/2017 8:56 AM HEALTH LEAD Height 170.2 cm (5' 7.01) 11/11/2017 8:56 AM HEALTH LEAD Body Mass Index 30.38 11/11/2017 8:56 AM HEALTH LEAD documented in this encounter Progress Notes Radha [...] discharged on amiodarone and did see a learning specialist over at [facility] for followup. He was recommended to wear a 24-hour Holter monitoring which demonstrated no evidence of atrial tachyarrhythmias. The patient checked his blood pressure twice a day and noticed heart rate in the 50s. He is doing quite well otherwise. Denies any shortness of breath, orthopnea, PND. His blood pressureseemed to be difficult to control and has seen a load tallier for that as well as for his [...] see us in a year in [facility] to his convenience, as the patient does live in that area. We will notify the patient regarding results of the Zio Patch monitor and have him follow up with you or my partners in a year from now. RADHA GALAN MD MT: SEMAJ Name: SPEEDY HENDRICKS Account: [id number] : 1940 Service Date: 11/11/2017 Document: [id number] TH LEAD Radha Galan MD - 11/11/2017 8:45 AM CST HPI and Plan: See dictation [id number] Orders Placed This Encounter Procedures ??? EKG [...] Oriented x 3 CC Radha Gamboa MD [address] [place] [address] TH LEAD documented in this encounter Plan of Treatment Not on filedocumented as of this encounter Procedures Procedure Name Priority Date/Time Associated Diagnosis Comme nts EKG 12-LEAD Routine 11/12/2017 10:13 Paroxysmal atrial Result s for this COMPLETE W/READ - AM HEALTH LEAD fibrillation (H) proced ure are in CLINICS the results section. documented in this encounter Results Zio Patch Monitor (11/22/2017) Narrative [facility] - 11/22/2017 [address] [facility] [address] [facility] [address] 11/17/2017 Patient: ??Speedy Hendricks Chart: [id number] : ??1940 Age: ??77 year old Sex: ??male Procedure: ??ZioPatch Monitor. Microfilm Equipment Inspector performing hook-up: ??Kiarra Rubalcava Radha Gamboa MD CV CARDIAC SERVICES ORDERABL ES Performing Organization Address City/State/ZIP Code Phon e Number [facility] EKG 12-lead complete w/read - Clinics (performed today) (11/12/2017 10:13 AM HEALTH LEAD) Narrative This result has an attachment that is no t available. Radha Gamboa MD ECG ORDERABLES documented in this encounter Visit Diagnoses Diagnosis Paroxysmal atrial fibrillation (H) Atrial fibrillation Paroxysmal atrial fibrillation (H) Atrial fibrillation documented in this encounter Care Teams Auto Porter Relationship Specialty Start Date End Date [facility] PCP - General 05/12/[address] [place] [address] documented as of this encounter
--- OUTSIDE RECORDS SUMMARY | 2022-08-14 11:17 | XMS_ITS | Encounter Summary ---
:1940 Author Organization [place] Address [address] [facility] [place] [address] Care Team Providers Name Role Phone [facility], [facility] Primary Care Provider [phone] Reason for Visit Reason Onset Date Comments Referral 05/21/2018 Encounter Details Date Type Department Care Team Description 05/21/2018 Telephone [facility] Vascular Clinic Cindy Taylor, stitcher tape controlled machine Secretary [address] [facility] [address] [place] [address] Social History Tobacco Use Types [...] 05/21/2018 4:03 PM CDT Pt referred to [facility] via fax by Marija Ramirez MD for known AAA increased in size to 4.4X4.6 cm- pt has known about AAA for past 55 years and has monitored it with annual US. US done on 05/17/18 in care [facility] from [facility]. Pt needs to be scheduled for consult with Dr. Lewis. Will route to scheduling to coordinate an appointment within the next week. SHASTA Chand, RN documented in this encounter Plan of Treatment Not on filedocumented as of this encounter Visit Diagnoses Not on filedocumented in this encounter Care Teams Rand Butting Machine Operator Relationship Specialty Start Date End Date Clinic, [facility] PCP - General 05/12/[address] [place] [address] documented as of this encounter
--- OUTSIDE RECORDS SUMMARY | 2022-08-14 11:17 | XMS_ITS | Encounter Summary ---
:1940 Author Organization [place] Address [address] [place] [address] Care Team Providers Name Role Phone Clinic, [facility] Primary Care Provider [phone] Reason for Visit Reason Onset Date Comments Referral 05/14/2017 MTM Encounter Details Date Type Department Care Team Description 05/14/2017 Telephone [facility] D [facility], Kehinde eagle ([facility]) Project [address] [place] [address] [phone] (Wo rk) Social History Tobacco Use Types [...] this time because they are not a [facility] patient, will route to MTM Pharmacist/Provider as an FYI. Thank you for the referral. Juanita [place]don MTM Coordinator documented in this encounter Plan of Treatment Not on filedocumented as of this encounter Visit Diagnoses Not on filedocumented in this encounter Care Teams Demolition Worker Relationship Specialty Start Date End Date [facility], [facility] PCP - General 05/12/[address] [place] [address] documented as of this encounter
--- OUTSIDE RECORDS SUMMARY | 2022-08-14 11:17 | XMS_ITS | Encounter Summary ---
:1940 Author Organization [place] Address [address] [facility] [place] [address] Care Team Providers Name Role Phone Clinic, [facility] Primary Care Provider [phone] Reason for Visit Reason Onset Date Comments Medication Question 05/24/2018 Encounter Details Date Type Department Care Team Description 05/24/2018 Telephone [facility] Juan Lewis on Question Vascular Clinic Félix Nava MD [address] [place] [address] [address] [place] [address] (Wo rk) Social History Tobacco Use Types [...] phone number should any further questions arise. SHASAT Winkler, RN Telephone Encounter - Serena Almaguer [...] Additional comments: Please call Raquel his daughter [phone] Phone number to reach patient: Home number on file [phone] (home) Best Time: anytime Can we leave a detailed message on this number? YES Serena Almaguer MA documented in this encounter Plan of Treatment Not on filedocumented as of this encounter Visit Diagnoses Not on filedocumented in this encounter Care Teams Equipment Validation Engineer Relationship Specialty Start Date End Date Bandar, Kehinde [place] PCP - General 05/12/[address] [place] [address] documented as of this encounter
--- OUTSIDE RECORDS SUMMARY | 2022-08-14 11:17 | XMS_ITS | Encounter Summary ---
:1940 Author Organization [place] Address [address] [place] [address] Care Team Providers Name Role Phone Clinic, [facility] Primary Care Provider [phone] Reason for Visit CV Testing - Closed Specialty Diagnoses / Procedures Referred By Contact Refer red To Contact Cardiology Diagnoses Transient cerebral ischemia, unspecified type Luis Antonio Quintanilla MD Rh Echo Rscc Procedures ECHO COMPLETE BUBBLE STUDY WITH OPTISON Echo Complete Bubble [address] [address] [place] [address] [address] [place] [address] Phone: Fax: Referral ID Status Reason Start Date Expiration Date Visits Requ ested Visits Authorized [id number] Closed 11/16/2017 11/16/2018 1 1 Encounter Details Date Type Department Care Team Description 11/17/2017 Hospital Encounter [facility] Luis Antonio Quintanilla [facility] MD Pippa ischemia, unspecified Heart Care [address] [address] [place], [place] [address] [address] [place], [place] [phone] [address] (Work) [phone] Social History Tobacco Use Types Packs/Day Years [...] Re sults for this BUBBLE STUDY WITH MEDICINE AND HEALTH SERVICE MANAGER ischemia, procedure are in OPTISON unspecified type the results section. documented in this encounter Results ECHO COMPLETE BUBBLE STUDY WITH OPTISON (11/17/2017 2:35 PM MEDICINE AND HEALTH SERVICE MANAGER) Anatomical Region Laterality Modality Echocardiography Specimen (Source) Anatomical Collection Method Collection Time Re ceived Time Location / / Volume Laterality 11/17/2017 1:54 PM MEDICINE AND HEALTH SERVICE MANAGER Narrative 11/17/2017 3:15 PM MEDICINE AND HEALTH SERVICE MANAGER [id number]^ARNAUD^LUIS ANTONIO^PIPPA [facility] Echocardiography Laboratory [address] [place] [address] Name: SPEEDY MCDUFFIE : 1940 Study Date: 11/17/2017 01:54 PM Age: 77 yrs Gender: Male [place] [facility] For Study: , Transient [...] note might be different from the original. [id number]^ARNAUD^LUIS ANTONIO^PIPPA [facility] Echocardiography Laboratory [address] [place] [address] Name: SPEEDY MCDUFFIE : 1940 Study Date: 11/17/2017 01:54 PM Age: 77 yrs Gender: Male [place] [facility] Reason For Study: , Transient [...] to 2mL with Given 11/17/2017 2:45 PM MEDICINE AND HEALTH SERVICE MANAGER 3 mLs saline (OPTISON) diluted injection 3 mL 3 mL, Intravenous, ONCE, On Thu11/17/17 at 1445, For 1 dose, [facility] [id number] sodium chloride (PF) 0.9% PF flush 10 mL Given 11/17/2017 2:37 PM MEDICINE AND HEALTH SERVICE MANAGER 10 mLs 10 mL, Intravenous, ONCE, On Thu11/17/17 at 1445, For 1 dose sodium chloride bacteriostatic 0.9 % flush 30 Given 2:37 PM MEDICINE AND HEALTH SERVICE MANAGER 30 mLs mL 30 mL, Intravenous, ONCE, On Thu11/17/17 at 1445, For 1 dose documented in this encounter Care Teams Rn Advice Relationship Specialty Start Date End Date [facility], [facility] PCP - General 05/12/[address] [place] [address] documented as of this encounter
--- OUTSIDE RECORDS SUMMARY | 2022-08-14 11:17 | XMS_ITS | Encounter Summary ---
:1940 Author Organization [place] Address [address] [facility] [place] [address] Care Team Providers Name Role Phone Clinic, [facility] Primary Care Provider [phone] Reason for Visit Reason Onset Date Comments Appointment 06/18/2018 Encounter Details Date Type Department Care Team Description 06/18/2018 Telephone [facility] Vascular Juan Delcid MD Appointment Clinic [place] [address] [place] [address] [place] [address] [phone] Social History Tobacco Use Types Packs/Day Years [...] only with Dr. Lewis on 07/01/18 in [place]. Pt had no further questions at this [...] on filedocumented in this encounter Care Teams Lump Roller Relationship Specialty Start Date End Date Clinic, [facility] PCP - General 05/12/[address] [place] [address] documented as of this encounter
--- OUTSIDE RECORDS SUMMARY | 2022-08-14 11:17 | XMS_ITS | Encounter Summary ---
:1940 Author Organization [place] Address [address] [place] [address] Care Team Providers Name Role Phone [facility], [facility] Primary Care Provider [phone] Reason for Visit Reason Onset Date Comments Medication Question 05/13/2017 meds Encounter Details Date Type Department Care Team Description 05/13/2017 Telephone [facility] Abimbola [place] M edication Question Clinic Tram GARCIA (meds) [address] [facility] [address] [place] [address] Social History Tobacco Use Types [...] and LM for her to call this bond writer back. JNelsonRN documented in this encounter Plan of Treatment Not on filedocumented as of this encounter Visit Diagnoses Not on filedocumented in this encounter Care Teams Breaker Operator Relationship Specialty Start Date End Date Clinic, Ke[facility]e Santos PCP - General 05/12/17 [address] [place] [address] documented as of this encounter
--- OUTSIDE RECORDS SUMMARY | 2022-08-14 11:17 | XMS_ITS | Encounter Summary ---
:1940 Author Organization [place] Address [facility] [place] [address] Care Team Providers Name Role Phone Clinic, [facility] Primary Care Provider [phone] Reason for Visit Reason Onset Date Comments Trader Fixed Income 11/23/2017 Encounter Details Date Type Department Care Team Description 11/23/2017 Telephone [facility] Heart Erica [place], Trader Fixed Income Clinic [place] RN [address] [facility] [address] [place] [address] Social History Tobacco Use Types Packs/Day Years Used Date Smoking Tobacco: Former Smokeless Tobacco: Never Comments: quit 1985 Alcohol Use Standard Drinks/Week Comments Yes 0 (1 standard drink = 0.6 oz pure alcoho l) 10 per week Sex Assigned at Date Recorded Not on file documented as of this encounter Miscellaneous Notes Telephone Encounter - Olive Saldana, JOSE - 11/27/2017 4:02 PM DIE KEEPER Call to daughter; Ed was seen again in the ED on 11-15-17, 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 Eliquis was started by Dr Quintanilla/ Eusebia KEEPER Telephone Encounter - Taran Lugo MD - [...] if he is on one. Thanks, qp KEEPER Telephone Encounter - Olive Saldana RN - 11/23/2017 2:47 PM DIE KEEPER Call from daughterRaquel. States her dad wore a ZioPatch ordered by Dr Lugo to assess AF burden (ischemic/infarct areas seen in the brains). Daughter states the monitor was worn for 4 days (preferred2 weeks); it fell off she feels d/t the hair on his chest. Will note to Dr Lugo to advise re: havinganother placed. Drake KEEPER documented in this encounter Plan of Treatment Not on filedocumented as of this encounter Visit Diagnoses Not on filedocumented in this encounter Care Teams Gravel Truck Driver Relationship Specialty Start Date End Date [facility], [facility] PCP - General 05/12/[address] [place] [address] documented as of this encounter
--- OUTSIDE RECORDS SUMMARY | 2022-08-14 11:17 | XMS_ITS | Encounter Summary ---
:1940 Author Organization [place] Address [address] [facility] [place] [address] Care Team Providers Name Role Phone [facility], [facility] Primary Care Provider [phone] Reason for Referral Diagnostic Imaging CT Scan - Closed Specialty Diagnoses / Procedures Referred By Contact Refer red To Contact Diagnoses Abdominal aortic aneurysm Juan Lewis MD Procedures CTA Abdomen Pelvis with Contrast [address] [place] [address] Referral ID Status Reason Start Date Expiration Date Visits Requ ested Visits Authorized [id number] Closed 06/03/2018 06/03/2019 1 1 Encounter Details Date Type Department Care Team Description 06/03/2018 Orders Only [facility] Juan Lewis Abdompepe l aortic Vascular Clinic Félix Nava MD aneurysm (H) (Primary [address] ) [address] [place] [address] [place] [id number] Social History Tobacco Use Types Packs/Day Years [...] pture documented in this encounter Care Teams Lead Driver Relationship Specialty Start Date End Date [facility], [facility] - General 05/12/[address] [place] [address] documented as of this encounter
--- OUTSIDE RECORDS SUMMARY | 2022-08-14 11:17 | XMS_ITS | Encounter Summary ---
:1940 Author Organization [place] Address [facility] [place] [address] Care Team Providers Name Role Phone [facility], [facility] Primary Care Provider [phone] Reason for Visit Reason Comments RECHECK pt would like to discuss Encounter Details Date Type Department Care Team Description 07/01/2018 Office Visit [facility] Juan Lewis aortic Surgery Clinic MD Elijah aneurysm (AAA) without Guy [address] rupture (H) (Primary [address]) [address] [place] [address] [place], [place] [phone] [address] (Work) [phone] Social History Tobacco Use Types Packs/Day Years [...] Primary documented in this encounter Care Teams Leather Scrubber Relationship Specialty Start Date End Date [facility], [facility] PCP - General 05/12/[address] [place] [address] documented as of this encounter
--- OUTSIDE RECORDS SUMMARY | 2022-08-14 11:17 | XMS_ITS | Encounter Summary ---
:1940 Author Organization [place] Address [address] [facility] [place] [address] Care Team Providers Name Role Phone [facility], [facility] Primary Care Provider [phone] Encounter Details Date Type Department Care Team Description 07/30/[address] [facility] Vascular Juan Delcid MD [facility] [place] [address] [place] [address] [place] [address] [phone] Social History Tobacco Use Types Packs/Day Years [...] AAA WITH [employer] G[employer]FT Location of surgery: [facility] Date and time of surgery: 09/28/18 @ 12:30pm Surgeon: DR. VÁSQUEZ AND DR. ALANIZ Pre-Op Appt Date: PT TO SCHEDULE AT [facility] Post-Op Appt Date: PT TO SCHEDULE Packet sent out: YES ON 09/02/18 Pre-cert/Authorization completed: Yes Date: 09/14/18 STRIPPER Telephone Encounter - Aruna Simmons - 07/30/2018 4:00 PM CDT Daughter Raquel called to schedule her dad's surgery in September. I took note of the dates they would like. I am waiting on the schedule for the Interventional Radiologist that Dr. Vásquez requested. Raquel understands I will follow up with her next week. .Aruna Simmons, Intermediate Teacher documented in this encounter Plan of Treatment Not on filedocumented as of this encounter Visit Diagnoses Not on filedocumented in this encounter Care Teams Carbon Coater Machine Operator Relationship Specialty Start Date End Date [facility], [facility] PCP - General 05/12/[address] [place] [id number] documented as of this encounter
--- OUTSIDE RECORDS SUMMARY | 2022-08-14 11:17 | XMS_ITS | Encounter Summary ---
:1940 Author Organization [place] Address [address] [place] [address] Care Team Providers Name Role Phone Clinic, [facility] Primary Care Provider Reason for Visit Reason Onset Date Comments Previsit 11/10/[address] Fatuma ng--visit 11/11/17 Encounter Details Date Type Department Care Team Description 11/10/2017 Telephone [facility] Heart Ebony [place], Previsit (New patient Clinic [place] GARCIA for Dr Lugo--visit [address] [facility] 11/11/17) [facility] [address] [place] [address] Social History Tobacco Use Types [...] reflect what patient is taking. PEngler, RN [employer] CONSULTANT documented in this encounter Plan of Treatment Not on filedocumented as of this encounter Visit Diagnoses Not on filedocumented in this encounter Care Teams Drug And Alcohol Counselor Relationship Specialty Start Date End Date [facility], [facility] PCP - General 05/12/[address] [place] [id number] documented as of this encounter
--- OUTSIDE RECORDS SUMMARY | 2022-08-14 11:17 | XMS_ITS | Encounter Summary ---
:1940 Author Organization [place] Address [address] [place] [address] Care Team Providers Name Role Phone Clinic, [facility] Primary Care Provider [phone] Reason for Visit Reason Comments Transient Ischemic Attack Encounter Details Date Type Department Care Team Description 11/14/2017 - [facility] [address] [place] [address] Transient cerebral ischemia, unspecified type (Primary Dx); 11/15/2017 [facility] Jamie Bryan MD [address] [place] [address] Weakness on right side of face; Dept Uncontrolled hypertension [address] [place] [address] Social History Tobacco Use Types [...] Comments Blood Pressure 157/73 11/15/2017 11:35 AM [facility] Pulse 54 11/14/2017 11:13 PM [facility] Temperature 35.8 ??C (96.5 ??F) 11/15/2017 11:35 AM [facility] Respiratory Rate 18 11/15/2017 11:35 AM [facility] Oxygen Saturation 97% 11/15/2017 11:35 AM [facility] Inhaled Oxygen Concentration - - Weight 88.9 kg (196 lb) 11/15/2017 2:04 AM [facility] Height 177.8 cm (5' 10) 11/15/2017 2:04 AM [facility] Body Mass Index 28.12 11/15/2017 2:04 AM [facility] documented in this encounter Discharge Summaries Luis Antonio Quintanilla MD - 11/15/2017 11:18 AM CST [facility] Discharge Summary Name: Speedy Hendricks Date of : 1940 Age: [age] year old Date of Discharge: 11/15/2017 Date of Admission: 11/14/2017 Primary Care Provider: [facility] Discharge Physician: Luis Antonio Quintanilla MD Discharging [...] with NOAC. I also spoke with his Psychic Reader (Dr. Wilson) who agreed with starting lisinopril. [...] 50 Minutes. Luis Antonio Quintanilla MD Pager: [phone] [facility] documented in this encounter Medications at Time [...] and placed in patient's chart. Samantha Vergara MAINTENANCE OF WAY CLERK [facility] documented in this encounter H&P Notes Jamie [...] -permissive HTN -monitor for recurrence of symptoms -PT/OT/RIM BUSTER -bedside swallow eval by RN, ok to [...] on amiodarone that was stopped by his missile technician last week. Continues on 81mg aspirin and metoprolol 50mg bid. AC refused by patient/family due to enlarging AAA. -continue aspirin -continue metoprolol 50mg bid 4. Hx cardiac arrest: suspected due to mscontin buildup in setting of CKD. Hospitalized at [facility] [place] [facility] 04/2017. Has been doing quite well since. 5. AAA: enlarging and up to 4.2cm when last checked. Due for repeat US next month. Father from AAA at age 61. 6. HTN: SBP elevated here initially to 185/99 now down to 140-150s in ED without intervention. 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 Lift room needed: No. Bariatric: No Sausage Tier Needed: No Isolation: No. Infection: Not Applicable. [...] is able to stand, good equal bilateral mineral technologist, speech clear, gcs 15, AA&Ox3. Tests Performed: [...] chloride BOLUS (0 mLs Intravenous Stopped 11/14/17 1862) iopamidol (ISOVUE-370) solution 500 mL (120 mLs Intravenous Given 11/14/17 3638) Drips infusing: No For the majority of [...] hardware foot Thoracic surgery, right lung surgery [place] teeth extraction Family History: History reviewed. No [...] Screening for cardiovascular disease. Rate 58 bpm. WV interval 184 ms. QRS duration 82 ms. [...] focal stenosis of the left P2 segment SALES CORRESPONDENT with a small trickle of contrast extending [...] Dr. Arriaga of the radiology service from [facility] regarding patient's presentation, findings, and [...] observations and the provider's statements to me. [facility] EM[facility]ENCY [facility]PARTMENT Damian Mark MD 11/15/17 0149 [facility] documented in this encounter Miscellaneous Notes Plan [...] with: daughter OBSERVATION patient END time: 1210 [facility] Plan of Care - Mitra Joshi, OT - 11/15/2017 9:39 AM CST Problem: Patient Care Overview Goal: Plan of Care/Patient Progress Review OT: Orders received and chart reviewed. Discussed with treatment team including physical therapist. No Ip OT needs at this time. Will complete orders [facility] Plan of Care - Brittany Alcantar, PT - 11/15/2017 9:23 AM CST Problem: Patient Care Overview Goal: Plan of Care/Patient Progress Review PT: Received orders for evaluation and treatment; per chart review and Obs team, no inpatient therapy needs at this time (issues have resolved). Will complete therapy orders. [facility] Plan of Care - Ca Major, JOSE - 11/15/2017 8:00 AM CST Problem: Patient Care Overview Goal: Plan of Care/Patient Progress Review PRIMARY DIAGNOSIS: TIA R/O OUTPATIENT/OBSERVATION GOALS TO BE MET BEFORE DISCHARGE: 1. Orthostatic performed: No 2. Diagnostic testing complete & at baseline neurologic testing: Yes 3. Cleared by consultants (if involved): No 4. Interpretation of cardiac rhythm per library information technician: SR 5. Tolerating adequate PO diet and medications: Yes 6. Return to near baseline physical activity or neurologic status: Yes Band Head Saw Operator Nurse Safe discharge environment identified: Yes Barriers to discharge: Yes Entered by: Ca Major 11/15/2017 Please review provider order for any additional goals. Nurse to notify provider when observation goals have been met and patient is ready for discharge. VSS, up independent, A&Ox4, steady gait, denies dizziness, reports 5/10 headache, improved aftertylenol given dermatology specialist, denies N/T, plan for MRI this AM, neuro consult, daughter at bedside, will continue to monitor and provide supportive cares. [facility] Plan of Care - Debra Araujo RN - 11/15/2017 2:30 AM CST Problem: Patient Care Overview Goal: Plan of Care/Patient Progress Review Outcome: Improving ROOM # 226 Living Situation (if not independent, order SW consult): lives independently Facility name: storeperson: daughters listed on chart Activity level at baseline: ind Activity level on admit: ind Patient registered to observation; given Patient Bill of Rights; given the opportunity to ask questions about observation status and their plan of care. Patient has been oriented to the observation room, bathroom and call light is in place. Discussed discharge goals and expectations with patient/family. [facility] documented in this encounter Plan of Treatment Not on filedocumented as of this encounter Procedures Procedure Name Priority Date/Time Associated Comments Diagnosis MR BRAIN W/O & W Routine 11/15/2017 9:15 AM Resul ts for this CONTRAST [facility] procedure are i n the results section. BASIC METABOLIC PANEL Routine 11/15/2017 6:37 AM Weakness on r ight Results for this [facility] side of face procedure are i n the results section. EKG 12-LEAD, TRACING Routine 11/15/2017 2:08 AM R esults for this ONLY [facility] procedure are i n the results section. CT HEAD W CONTRAST STAT 11/14/2017 11:58 Resul ts for this PM [facility] procedure are i n the results section. CTA HEAD NECK W STAT 11/14/2017 11:53 Results for this CONTRAST PM [facility] procedure are i n the results section. CT HEAD W/O CONTRAST STAT 11/14/2017 11:39 Res ults for this PM [facility] procedure are i n the results section. CBC WITH PLATELETS & Routine 11/14/2017 11:29 Res ults for this DIFFERENTIAL PM [facility] procedure are i n the results section. TROPONIN I Routine 11/14/2017 11:29 Results for this PM [facility] procedure are i n the results section. INR Routine 11/14/2017 11:29 Results for this PM [facility] procedure are i n the results section. PARTIAL THROMBOPLASTIN Routine 11/14/2017 11:29 R esults for this TIME PM [facility] procedure are i n the results section. BASIC METABOLIC PANEL Routine 11/14/2017 11:29 Re sults for this PM [facility] procedure are i n the results section. EKG 12-LEAD, TRACING STAT 11/14/2017 11:22 Res ults for this ONLY PM [facility] procedure are i n the results section. documented in this encounter Results MRI Brain w & w/o contrast (11/15/2017 9:15 AM [facility]) Anatomical Region Laterality Modality Head, SUBRAD MR NEURO, UMP MR NEURO, RAD MR Magnetic Resonance Specimen (Source) Anatomical Location Collection Method / Collectio n Time Received Time / Laterality Volume Impressions 11/15/2017 9:39 AM [facility] IMPRESSION: ?? 1. No evidence of acute infarct, mass, h emorrhage, or herniation. 2. Moderate diffuse parenchymal volume l oss and white matter changes likely due to chronic microvascular isch emic disease without significant change since prior. KATIA DAVID MD Narrative 11/15/2017 9:39 AM [facility] MRI BRAIN WITHOUT AND WITH CONTRAST ??11/15/2017 [...] (ABNORMAL) Basic metabolic panel (11/15/2017 6:37 AM [facility]) Analysis Performed At Patho logist Time Signature Sodium 141 133 - 144 11/15/2017 [facility] mmol/L 7:04 AM [facility] Potassium 4.1 3.4 - 5.3 11/15/2017 [facility] mmol/L 7:04 AM [facility] Chloride 109 94 - 109 11/15/2017 [facility] mmol/L 7:04 AM [facility] Carbon Dioxide 25 20 - 32 11/15/2017 [facility] mmol/L 7:04 AM [facility] Anion Gap 7 3 - 14 11/15/2017 [place] mmol/L 7:04 AM [facility] Glucose 105 (H) 70 - 99 11/15/2017 [facility] mg/dL 7:04 AM [facility] Urea Nitrogen 33 (H) 7 - 30 11/15/2017 [place] [facility] mg/dL 7:04 AM [facility] Creatinine 1.51 (H) 0.66 - 11/15/2017 [facility] 1.25 mg/dL 7:04 AM [facility] GFR Estimate 45 (L) >60 11/15/2017 [place] [facility] [facility] mL/min/1.7 7:[address] Comment: Non GFR Calc GFR Estimate If 55 (L) >60 mL/min/1.7m2 11/15/2017 7:04 A [facility] Comment: GFR Calc Calcium 8.8 8.5 - 10.1 mg/dL 11/15/2017 7:04 AM [facility] Specimen Anatomical Collection Method Collection Time Receive d Time (Source) Location / / Volume Laterality Blood specimen 11/15/2017 6:37 AM 018 6:38 (specimen) [facility] AM [facility] Jamie Gates MD LAB - BLOOD ORDERABLES Performing Organization Address City/State/ZIP Code Phon e Number [facility] [address] [place], [place] [address] [facility] [address] [address] [facility] [phone] EKG 12-lead, tracing only (11/15/2017 2:08 AM [facility]) [facility] gist Method Time Signature Interpretation ECG Click View RADIOLOGY Image link RESULTS to view waveform and result Specimen (Source) Anatomical Collection Method Collection Time Re ceived Time Location / / Volume Laterality 11/15/2017 2:08 AM [facility] Jamie Gates MD ECG ORDERABLES Performing Organization Address City/[facility]/ZIP Code Phon e Number RADIOLOGY RESULTS CT Head w Contrast (11/14/2017 11:58 PM [facility]) Anatomical Region Laterality Modality Head, NEURO, SUBRAD CT NEURO, SUBRAD CT NEURO, UMP CT Computed Tomography NEURO, RAD CT Specimen (Source) Anatomical Location Collection Method / Collectio n Time Received Time / Laterality Volume Impressions 11/15/2017 8:18 AM [facility] IMPRESSION: 1. Patent arteries in the neck [...] KATIA DAVID MD Narrative 11/15/2017 8:18 [address] [facility] ANGIOGRAM OF THE HEAD AND NECK [...] CTA Angiogram Head Neck (11/14/2017 11:53 PM [facility]) Anatomical Region Laterality Modality Head, SUBRAD CT NEURO, SUBRAD CT NEURO, UMP CT NEURO, Computed Tomography RAD CT Specimen (Source) Anatomical Location Collection Method / Collectio n Time Received Time / Laterality Volume Impressions 11/15/2017 8:18 AM [facility] IMPRESSION: 1. Patent arteries in the neck [...] KATIA DAVID MD Narrative 11/15/2017 8:18 AM [facility] CT ANGIOGRAM OF THE HEAD AND NECK [...] CT Head w/o Contrast (11/14/2017 11:39 PM [facility]) Anatomical Region Laterality Modality Head, SUBRAD CT NEURO, SUBRAD CT NEURO, P CT NEURO, Computed Tomography RAD CT Specimen (Source) Anatomical Location Collection Method / Collectio n Time Received Time / Laterality Volume Impressions 11/15/2017 8:18 AM [facility] IMPRESSION: ?? 1. No evidence of acute intracranial hem orrhage, mass, or herniation. 2. There is generalized atrophy of the b rain. White matter changes are present in the cerebral hemispheres that are consistent with small vessel ischemic disease in this age angela ent. I agree with the overnight preliminary r eport by the radiologist. KATIA DAVID MD Narrative 11/15/2017 8:[address] [facility] CT SCAN OF THE HEAD WITHOUT CONTRAST [...] CT ORDERABLES Troponin I (11/14/2017 11:29 PM [facility]) P athologist Signature Troponin I ES <0.015 0.000 - 11/14/2017 [facility] 0.045 ug/L 11:53 PM [facility] Comment: The 99th percentile for upper reference range is 0.045 ug/L. ??Troponin values in the range of 0.045 - 0.120 ug/L may b e associated with risks of adverse clinical events. Specimen Anatomical Collection Method Collection Time Receive d Time (Source) Location / / Volume Laterality 11/14/2017 11:29 11/14/2017 PM [facility] 11:31 PM [facility] Damian Mark MD LAB - BLOOD ORDERABLES Performing Organization Address City/State/ZIP Code Phon e Number M [facility] [address] [place], [place] [address] [place] [address] [address] [place], [place] [address], [facility] [phone] Partial thromboplastin time (11/14/2017 11:29 PM [facility]) P athologist Signature PTT 30 22 - 37 sec 11/14/2017 [facility] 11:45 PM [facility] Specimen Anatomical Collection Method Collection Time Receive d Time (Source) Location / / Volume Laterality 11/14/2017 11:29 11/14/2017 PM [facility] 11:31 PM [facility] Damian Mark MD LAB - BLOOD ORDERABLES Performing Organization Address City/[facility] Code Phon e Number M [facility] [address] [place], [place] [address] [place] [address] [address] [place], [place] [address], [facility] [phone] INR (11/14/2017 11:29 PM [facility]) P athologist Signature INR 0.96 0.86 - 1.14 11/14/2017 [facility] 11:45 PM [facility] Specimen Anatomical Collection Method Collection Time Receive d Time (Source) Location / / Volume Laterality 11/14/2017 11:29 11/14/2017 PM [facility] 11:31 PM [facility] Damian Mark MD LAB - BLOOD ORDERABLES Performing Organization Address City/State/ZIP Code Phon e Number M [facility] [address] [place], [place] [address] [facility] [address] [phone] (ABNORMAL) CBC with platelets differential (11/14/2017 11:29 PM [facility]) [facility] Method Time Signature WBC 6.1 4.0 - 11/14/2017 [facility] 11.0 11:34 PM [facility] 10e9/L [facility] RBC Count 4.23 (L) 4.4 - 5.9 11/14/2017 [facility] 10e12/L 11:34 [facility] Hemoglobin 13.7 13.3 - 11/14/2017 [facility] 17.7 g/dL 11:34 [facility] Hematocrit 41.0 40.0 - 11/14/2017 [facility] 53.0 % 11:34 [facility] MCV 97 78 - 100 11/14/2017 [facility] fl 11:34 PM [facility] MCH 32.4 26.5 - 11/14/2017 [facility] 33.0 pg 11:34 [facility] MCHC 33.4 31.5 - 11/14/2017 [facility] 36.5 g/dL 11:34 [facility] RDW 12.9 10.0 - 11/14/2017 [facility] 15.0 % 11:34 [facility] Platelet Count 122 (L) 150 - 450 11/14/2017 [facility] 10e9/L 11:34 [facility] Diff Method Automated 11/14/2017 [facility] Method 11:34 [facility] % Neutrophils 57.3 % 11/14/2017 [facility] 11:34 [facility] % Lymphocytes 27.8 % 11/14/2017 [facility] 11:34 [facility] % Monocytes 11.3 % 11/14/2017 [facility] 11:34 [facility] % Eosinophils 3.1 % 11/14/2017 [facility] 11:34 [facility] % Basophils 0.3 % 11/14/2017 [facility] 11:34 [facility] % Immature 0.2 % 11/14/2017 [facility] Granulocytes 11:34 [facility] Nucleated RBCs 0 0 /100 11/14/2017 [facility] 11:34 [facility] Absolute 3.5 1.6 - 8.3 11/14/2017 [facility] Neutrophil 10e9/L 11:34 PM [facility] Absolute 1.7 0.8 - 5.3 11/14/2017 [facility] Lymphocytes 10e9/L 11:34 PM [facility] Absolute 0.7 0.0 - 1.3 11/14/2017 [facility] Monocytes 10e9/L 11:34 PM [facility] Absolute 0.2 0.0 - 0.7 11/14/2017 [facility] Eosinophils 10e9/L 11:34 PM [facility] Absolute 0.0 0.0 - 0.2 11/14/2017 [facility] Basophils 10e9/L 11:34 PM [facility] Abs Immature 0.0 0 - 0.4 11/14/2017 [facility] Granulocytes 10e9/L 11:34 PM [facility] Absolute 0.0 11/14/2017 [place] Nucleated RBC 11:34 PM [facility] Specimen Anatomical Collection Method Collection Time Receive d Time (Source) Location / / Volume Laterality 11/14/2017 11:29 11/14/2017 PM [facility] 11:31 PM [facility] Damian Mark MD LAB - BLOOD ORDERABLES Performing Organization Address City/State/ZIP Code Phon e Number [address] [place] [address] [place] [address] [facility] [address] [phone] (ABNORMAL) Basic metabolic panel (11/14/2017 11:29 PM [facility]) Analysis Performed At Patho logist Time Signature Sodium 141 133 - 144 11/14/2017 [place] mmol/L 11:53 PM [facility] Potassium 3.7 3.4 - 5.3 11/14/2017 [place] mmol/L 11:53 PM [facility] Chloride 107 94 - 109 11/14/2017 [place] mmol/L 11:53 PM [facility] Carbon Dioxide 26 20 - 32 11/14/2017 [place] mmol/L 11:53 PM [facility] Anion Gap 8 3 - 14 11/14/2017 [place] mmol/L 11:53 PM [facility] Glucose 103 (H) 70 - 99 11/14/2017 [facility] mg/dL 11:53 PM [facility] Urea Nitrogen 32 (H) 7 - 30 11/14/2017 [place] mg/dL 11:53 PM [facility] Creatinine 1.67 (H) 0.66 - 11/14/2017 [place] 1.25 mg/dL 11:53 PM [facility] GFR Estimate 40 (L) >60 11/14/2017 [place] mL/min/1.7 11:[address] Comment: Non GFR Calc GFR Estimate If 49 (L) >60 mL/min/1.7m2 11/14/2017 11:53 PM [facility] Comment: GFR Calc Calcium 8.9 8.5 - 10.1 mg/dL 11/14/2017 11:53 PM [facility] Specimen Anatomical Collection Method Collection Time Receive d Time (Source) Location / / Volume Laterality 11/14/2017 11:29 11/14/2017 PM [facility] 11:31 PM [facility] Damian Mark MD LAB - BLOOD ORDERABLES Performing Organization Address City/State/ZIP Code Phon e Number [place] [address] [address] [place] [address] [place] [address] [phone] EKG 12 lead (11/14/2017 11:22 PM [facility]) [facility] gist Method Time Signature Interpretation ECG Click View RADIOLOGY Image link RESULTS to view waveform and result Specimen (Source) Anatomical Collection Method Collection Time Re ceived Time Location / / Volume Laterality 11/14/2017 11:22 PM [facility] Damian Mark MD ECG ORDERABLES Performing Organization Address City/State/ZIP [facility] Phon e Number [...] chloride BOLUS New Bag 11/14/2017 11:48 PM [facility] 80 mLs Intravenous, 1,000 mL, ONCE, On 11/14/17 at 2330, For 1 dose acetaminophen (TYLENOL) tablet 1,000 mg Given 11/15/2017 1:11 AM [facility] 1,000 mg 1,000 mg, Oral, ONCE, On 11/15/17 at 0054, For 1 dose, Maximum acetaminophen dose from all sources = 75 mg/kg/day not to exceed 4 gram acetaminophen (TYLENOL) tablet 650 mg Given 11/15/2017 6:11 AM [facility] 650 mg 650 mg, Oral, EVERY 4 HOURS PRN, mild pain, Starting on 11/15/17 at 0204, Alternate ibuprofen (if ordered) with acetaminophen. Maximum acetaminophen dose from all sources = 75 mg/kg/day not to exceed 4 grams/day. gadobutrol (GADAVIST) injection 10 mL Given 11/15/2017 8:30 AM [facility] 10 mLs 10 mL, Intravenous, ONCE, On 11/15/17 at 0805, For 1 dose, Supplied by, and administered by MRI. iopamidol (ISOVUE-370) solution 500 mL Given 11/14/2017 11:48 PM [facility] 120 mLs 500 mL, Intravenous, ONCE, On 11/14/17 at 2330, For 1 dose lisinopril (PRINIVIL/ZESTRIL) tablet 5 m g 5 mg, Oral, DAILY, First dose on 11/15/17 at 1102, Hold for SBP < 100 LORazepam (ATIVAN) injection 0.5-1 mg Given 11/15/2017 8:20 AM [facility] 0.5 mg 0.5-1 mg, Intravenous, ONCE, On [...] Recently Administered Medications Times are shown in [facility]. Scheduled Medication Order 11/13/2017 11/14/2017 11/15/2017 0.9% [...] minutes.
documented in this encounter Care Teams Waiter/Waitress Head Relationship Specialty Start Date End Date [facility], [facility] PCP - General 05/12/[address] [place] [phone] documented as of this encounter
--- OUTSIDE RECORDS SUMMARY | 2022-08-14 11:17 | XMS_ITS | Encounter Summary ---
:1940 Author Organization [place] Address [address] [facility] [place] [address] Care Team Providers Name Role Phone [facility], [facility] Primary Care Provider [phone] Reason for Referral Diagnostic Imaging CT Scan - Closed Specialty Diagnoses / Procedures Referred By Contact Refer red To Contact Diagnoses Abdominal aortic aneurysm Juan Lewis MD Procedures CTA Abdomen Pelvis with Contrast [address] [place] [address] Referral ID Status Reason Start Date Expiration Date Visits Requ ested Visits Authorized [id number] Closed 06/03/2018 06/03/2019 1 1 Reason for Visit Diagnostic Imaging CT Scan - Closed Specialty Diagnoses / Procedures Referred By Contact Refer red To Contact Diagnoses Abdominal aortic aneurysm Juan Lewis MD Procedures CTA Abdomen Pelvis with Contrast [address] [place] [address] Referral ID Status Reason Start Date Expiration Date Visits Requ ested Visits Authorized [id number] Closed 06/03/2018 06/03/2019 1 1 Encounter Details Date Type Department Care Team Description 06/07/2018 Hospital Encounter [facility] Juan Lewis Ab dominal aortic [facility] MD Elijah aneurysm (H) [address] [place] [address] [address] [place] [address] [phone] Social History Tobacco Use Types Packs/Day Years [...] dose documented in this encounter Care Teams Cigar Packer And Sorter Relationship Specialty Start Date End Date [facility] [place] PCP - General 05/12/[address] [place] [phone] documented as of this encounter
--- OUTSIDE RECORDS SUMMARY | 2022-08-14 11:17 | XMS_ITS | Encounter Summary ---
:1940 Author Organization [facility] Address [address] [place] [id number] Care Team Providers Name Role Phone Clinic, [facility] Primary Care Provider [phone] Reason for Referral - Closed Specialty Diagnoses / Procedures Referred By Contact Refer red To Contact Diagnoses Paroxysmal atrial fibrillation (H) Taran Lugo MD Procedures Zio Patch Monitor [address] [place] [address] Referral ID Status Reason Start Date Expiration Date Visits Requ ested Visits Authorized [id number] Closed 11/25/2017 11/25/2018 1 1 EXAMINER Reason for Visit (Routine) - Closed Specialty Diagnoses / Procedures Referred By Contact Refer red To Contact Cardiology Procedures Zzrh Cardiac Test Rscc ZIOPATCH MONITOR [address] [place], [place] [phone] Phone: Fax: Referral ID Status Reason Start Date Expiration Date Visits Requ ested Visits Authorized [id number] Closed 11/17/2017 11/17/2018 1 1 Encounter Details Date Type Department Care Team Description 11/17/2017 Hospital Encounter [facility] Taran Lugo Pa [facility] [place] MD fibrillation (H) [id number] [address] [place], [place] [phone] Social History Tobacco Use Types Packs/Day Years [...] he gets from the one mailed back. EXAMINER Kiarra Rubalcava - 11/17/2017 3:49 PM CST Ziopatch heart monitor was set up. Patient stated that Dr. Quintanilla ordered the event monitor but Dr. Lugo wanted him to wear a ziopatch for 14 days. Patient was then set up with a ziopatch. EXAMINER documented in this encounter Plan of Treatment Not on filedocumented as of this encounter Procedures Procedure Name Priority Date/Time Associated Diagnosis Comme nts ZIO PATCH HOLTER Routine 11/22/2017 Paroxysmal atrial Result s for this fibrillation (H) procedure a re in the results section . documented in this encounter Results Zio Patch Monitor (11/22/2017) Narrative [facility] - 11/22/2017 [facility] [id number] [place] [phone] 11/17/2017 Patient: ??Speedy Burris [place] Chart: [id number] : ??1940 Age: ??77 year old Sex: ??male Procedure: ??ZioPatch Monitor. Auto Transmission Mechanic performing hook-up: ??Kiarra Rubalcava Taran Gamboa MD [facility] ORDERABL ES Performing Organization Address City/State/ZIP Code Phon e Number [facility] documented in this encounter Visit Diagnoses Diagnosis Paroxysmal atrial fibrillation (H) Atrial fibrillation documented in this encounter Care Teams Fashion Show Director Relationship Specialty Start Date End Date [facility], [facility] PCP - General 05/12/[address] [place] [phone] documented as of this encounter
--- OUTSIDE RECORDS SUMMARY | 2022-08-14 11:17 | XMS_ITS | Encounter Summary ---
:1940 Author Organization [facility] Address [address] [facility] [place] [address] Care Team Providers Name Role Phone [facility], [facility] Primary Care Provider [phone] Reason for Visit Auth/Cert Specialty Diagnoses / Procedures Referred By Contact Refer red To Contact Surgery Diagnoses ABDOMINAL AORTIC ANEURYSM Sh Periop Services Procedures ENDOVASCULAR REPAIR ANEURYSM ABDOMINAL AORTA [address], [address] [place] [address] Phone: Referral ID Status Reason Start Date Expiration Date Visits Requ ested Visits Authorized [id number] 1 1 Encounter Details Date Type Department Care Team Description 09/28/2018 Surgery [facility] Juan Vásquez FEMORAL [place] PeriOP MD Elijah CUTDOWN WITH ANGIOGRAM Services [address] [place] [address] [place] [address] [phone] Surgery Details Date/Time Status Location OR Service [...] Comments Blood Pressure 146/79 09/28/2018 3:00 PM PAINTINGS RESTORER Pulse 60 09/28/2018 11:21 AM PAINTINGS RESTORER Temperature 36.5 ??C (97.7 ??F) 09/28/2018 3:00 PM PAINTINGS RESTORER Respiratory Rate 9 09/28/2018 3:50 PM PAINTINGS RESTORER Oxygen Saturation 94% 09/28/2018 3:50 PM PAINTINGS RESTORER Inhaled Oxygen Concentration - - Weight 84.8 kg (187 lb) 09/28/2018 11:21 AM PAINTINGS RESTORER Height 170.2 cm (5' 7) 09/28/2018 11:21 AM PAINTINGS RESTORER Body Mass Index 29.41 09/28/2018 11:21 AM PAINTINGS RESTORER documented in this encounter Discharge Summaries Juan [...] MD MT: RIO Name: SPEEDY MCDUFFIE Account: [id number] : 1940 Admit Date: 09/28/2018 Discharge Date: 09/29/2018 Document: [id number] cc: Primary TINGS RESTORER documented in this encounter Medications at Time [...] Levi MD - 09/29/2018 9:32 AM CST [facility] Vascular Medicine Progress Note Date of [...] aorta. Exchange was made for a 6 Kittitian vascular sheath. 18-gauge singlewall needle was then advanced into the left common femoral artery through which a 0.035 inch Bentson wire was advanced in the abdominal aorta. Exchange is made for a 6 Kittitian vascular sheath. Via the left groin access, a 5 Kittitian pigtail catheter was advanced over the Bentson wire into the abdominal aorta. Via the right groin, a 5 Kittitian pigtail catheter was advanced over the Bentson [...] concerns during business hours M-F, call the [facility] at [phone] to have the rounding/aviation neuropsychologist Vascular Medicine (NOT VASCULAR SURGERY) MD paged. - After business hours M-F,??for medical concerns on this patient, please page hospitalist staff. - For vascular surgical questions, please page the appropriate surgeon (primary vascular surgeon or aviation neuropsychologist vascular surgeon) based upon the time of day. Lambert Fontanez PA-C Zoltan Londono MD - 09/29/2018 8:19 AM CST [facility] Vascular Surgery Progress Note Assessment & [...] concerns during business hours M-F, call the [facility] at [phone] to have the rounding/aviation neuropsychologist Vascular Medicine (NOT VASCULAR SURGERY) MD paged. - After business hours M-F,??for medical concerns on this patient, please page hospitalist staff. - For vascular surgical questions, please page the appropriate surgeon (primary vascular surgeon or aviation neuropsychologist vascular surgeon) based upon the time of day. Brandie Barrera PA-C Michelle Jones - 09/28/2018 10:42 AM CST Admission medication history interview status for the 09/28/2018 admission is complete. See [facility] admission navigator for prior to admission medications Medication history source reliability:Good Medication history interview source(s):Patient Medication history resources (including written lists, pill bottles, clinic record):Patient mailed in his medication list prior to surgery Primary pharmacy.[facility] Additional medication history information not noted on GUI DEVELOPER med list :None Time spent in this [...] at HS Yes Unknown, Entered By History TINGS RESTORER documented in this encounter Procedure Notes Jacqui [...] for procedural details. Provider name: Jacqui Odom Self Storage Manager(s):None TINGS RESTORER documented in this encounter Consult Notes Carrie [...] 1978. 2. Cervical fusion, Dr. Donahue at [facility] 02/18/2006. 3. Hardware removal and matrixectomy, right great toe, 09/30/2012. 4. Lumbar fusion 10/1996, L5-S1. 5. Lumbar fusion 1999, L4. 6. 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 7. Laparoscopic appendectomy, 01/2009. SOCIAL HISTORY: The patient is . He has 2 children. 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 He quit smoking [id number] after a 1/4 pack per day use [...] MD MT: JACKSON Name: SPEEDY MCDUFFIE Account: [id number] : 1940 Consult Date: 09/28/2018 Document: [id number] TINGS RESTORER documented in this encounter Miscellaneous Notes Op [...] MD MT: JACKSON Name: SPEEDY MCDUFFIE Account: [id number] : 1940 Procedure Date: 09/28/2018 Document: [id number] TINGS RESTORER Plan of Care - Griselda Dinero RN [...] will continue to follow up with this. TINGS RESTORER Provider Notification - Leiv Hollingsworth MD - 09/29/2018 12:46 AM PAINTINGS RESTORER Brief update: Paged re: request for home melatonin 10 mg melatonin HS PRN added. Levi Hollingsworth MD 12:47 AM TINGS RESTORER Plan of Care - Ira South RN - 09/28/2018 11:11 PM CST A&O, VSS, Lung sounds clear, Bowel sounds active,adeqaute urine output, incision right & letgroin CDI Ambulates assist 1, Regular diet, tolerating liquids with poor appetite. Pain controlled by scheduled tylenol and PRN oxycodone. TINGS RESTORER Plan of Care - Vandana Smith RN - 09/28/2018 7:22 PM CST Pt is came from PACU.Groin site dressing clean dry and intact.Not void yet.Ice pack given.IVF running .will monitor. TINGS RESTORER documented in this encounter Plan of Treatment Not on filedocumented as of this encounter Procedures Procedure Name Priority Date/Time Associated Comments Diagnosis CTA CHEST WITH Routine 09/29/2018 11:38 Results f or this CONTRAST AM PAINTINGS RESTORER procedure are i n the results section. BASIC METABOLIC PANEL Timed 09/29/2018 10:06 AAA (abdominal Results for this AM PAINTINGS RESTORER aortic aneurysm) procedure a re in (H) the results section. GLUCOSE BY METER Routine 09/29/2018 6:00 AM AAA (abdominal Res ults for this PAINTINGS RESTORER aortic aneurysm) procedure a re in (H) the results section. ANGIOGRAM Routine 09/28/2018 2:39 PM PAINTINGS RESTORER IR ABDOMINAL Routine 09/28/2018 2:17 PM AAA (abdominal Results for this ENDOVASCULAR STENT PAINTINGS RESTORER aortic aneurysm) proce dure are in GRAFT (H) the results section. EKG 12-LEAD, TRACING STAT 09/28/2018 11:42 Res ults for this ONLY AM PAINTINGS RESTORER procedure are i n the results section. XR CHEST 1 VIEW STAT 09/28/2018 11:21 Results for this AM PAINTINGS RESTORER procedure are i n the results section. BLOOD COMPONENT Routine 09/28/2018 11:11 AAA (abdominal Result s for this AM PAINTINGS RESTORER aortic aneurysm) procedure a re in (H) the results section. BLOOD COMPONENT Routine 09/28/2018 11:11 AAA (abdominal Result s for this AM PAINTINGS RESTORER aortic aneurysm) procedure a re in (H) the results section. POTASSIUM STAT 09/28/2018 11:11 AAA (abdominal Results f or this AM PAINTINGS RESTORER aortic aneurysm) procedure a re in (H) the results section. LIPID PROFILE STAT 09/28/2018 11:11 AAA (abdominal Results for this AM PAINTINGS RESTORER aortic aneurysm) procedure a re in (H) the results section. HEMOGLOBIN A1C STAT 09/28/2018 11:11 AAA (abdominal Results for this AM PAINTINGS RESTORER aortic aneurysm) procedure a re in (H) the results section. CREATININE STAT 09/28/2018 11:11 AAA (abdominal Results f or this AM PAINTINGS RESTORER aortic aneurysm) procedure a re in (H) the results section. ABO/RH TYPE AND STAT 09/28/2018 11:11 AAA (abdominal Result s for this SCREEN AM PAINTINGS RESTORER aortic aneurysm) procedure a re in (H) the results section. LAB RESULT - HIM SCAN 09/24/2018 12:00 AM PAINTINGS RESTORER EKG CARDIAC - HIM 09/24/2018 12:00 SCAN AM PAINTINGS RESTORER documented in this encounter Results CTA Chest with Contrast (09/29/2018 11:38 AM PAINTINGS RESTORER) Anatomical Region Laterality Modality Chest, SUBRAD IR PROCEDURE, UMP CT CTA, RAD CT Computed Tomography Specimen (Source) Anatomical Location Collection Method / Collectio n Time Received Time / Laterality Volume Impressions 09/29/2018 4:30 PM PAINTINGS RESTORER IMPRESSION: Tortuous descending thoracic aorta with bilobed aneurysmal dilatation measuring up to 50 mm in diameter in the distal descending aorta. JACQUI ODOM MD Narrative 09/29/2018 4:30 PM PAINTINGS RESTORER PROCEDURE: CTA of the chest DATE OF [...] ORDERABLES Basic metabolic panel (09/29/2018 10:06 AM PAINTINGS RESTORER) [facility] Time Signature Sodium 141 133 - 144 09/29/2018 [facility] mmol/L 10:31 AM [facility] Potassium 4.5 3.4 - 5.3 09/29/2018 [facility] mmol/L 10:31 AM [facility] Chloride 109 94 - 109 09/29/2018 [facility] mmol/L 10:31 AM [facility] Carbon Dioxide 25 20 - 32 09/29/2018 [facility] mmol/L 10:31 AM [facility] Anion Gap 7 3 - 14 09/29/2018 [facility] mmol/L 10:31 AM [facility] Glucose 97 70 - 99 09/29/2018 [facility] mg/dL 10:31 AM [facility] Urea Nitrogen 18 7 - 30 09/29/2018 [facility] mg/dL 10:31 AM [facility] Creatinine 1.25 0.66 - 09/29/2018 [facility] 1.25 10:31 AM [facility] GFR Estimate Not Calculated >60 09/29/2018 [facility] mL/min/1. 10:[address] GFR Estimate Not Calculated >60 09/29/2018 [facility] If Black mL/min/1. 10:[address] Calcium 8.8 8.5 - 09/29/2018 [facility] 10.1 10:31 AM [facility] mg/dL HOSPITAL Specimen Anatomical Collection Method Collection Time Receive d Time (Source) Location / / Volume Laterality Blood specimen 09/29/2018 10:06 8 (specimen) AM PAINTINGS RESTORER 10:07 AM PAINTINGS RESTORER Pam Conde PA-C LAB - BLOOD ORDERABLES Performing Organization Address City/State/ZIP Code Phon e Number [facility] [address] [place] [address] [phone] [facility] [address] [place] [address], [facility] [phone] (ABNORMAL) Glucose by meter (09/29/2018 6:00 AM PAINTINGS RESTORER) P athologist Signature Glucose 109 (H) 70 - 99 09/29/2018 [facility] mg/dL 6:18 AM PAINTINGS RESTORER TEST, GLUCOSE Specimen Anatomical Collection Method Collection Time Receive d Time (Source) Location / / Volume Laterality 09/29/2018 6:00 AM 8 6:18 PAINTINGS RESTORER AM PAINTINGS RESTORER Juan Vásquez MD LAB - BEAKER POCT Performing Organization Address City/State/ZIP Code Phon e Number [facility] POINT OF CARE TEST, GLUCOSE POINT OF CARE TEST, GLUCOSE IR Abdominal Endovascular Stent Graft (09/28/2018 2:17 PM PAINTINGS RESTORER) Anatomical Region Laterality Modality Abdomen/Pelvis Radio Fluoroscopy Specimen (Source) Anatomical Location Collection Method / Collectio n Time Received Time / Laterality Volume Impressions 09/29/2018 8:52 AM PAINTINGS RESTORER Impression: 1. Thoracic and abdominal angiography de monstrating previously unknown thoracic aortic aneurysm as well as the known abdominal aortic aneurysm 2. Endovascular aneurysm repair was abor clover to allow for further investigation of the thoracic aortic ane urysm and future surgical planning. JACQUI ODOM MD Narrative 09/29/2018 8:52 AM PAINTINGS RESTORER PROCEDURE(S): 1. Thoracic and abdominal aortic angiogr [...] aneurysm repair. A timeout was performed [facility] policy to confirm the correct [...] aorta. Exchange was made for a 6 Kittitian vascula r sheath. 18-gauge singlewall needle was then advanced into the left c ommon femoral artery through which a 0.035 inch Bentson wire was adva nced in the abdominal aorta. Exchange is made for a 6 Kittitian vascular sheath. Via the left groin access, a 5 Kittitian pigtail catheter was advanced over the Bentson wire into the abdominal aorta. Via the right groin, a 5 Kittitian pigtail catheter was advanced over the Bentson [...] aneurysm repair. A timeout was performed per [facility] rsal protocol policy to confirm the correct patient, site and pr ocedure to be performed. Please note that due to the complex natu re of the procedure, a multi-disciplinary approach was used [facility] ch involved Mili Vásquez and Lei functioning as co-surgeons for t his procedure. Bilateral common femoral arteries were s urgically exposed, see separate operative report for details. A n 18-gauge singlewall needle was then inserted into the right common femoral artery through which a 0.035 inch Bentson wire was advanced int o the abdominal aorta. Exchange was made for a 6 Kittitian vascula r sheath. 18-gauge singlewall needle was then advanced into the left c ommon femoral artery through which a 0.035 inch Bentson wire was adva nced in the abdominal aorta. Exchange is made for a 6 Kittitian vascular sheath. Via the left groin access, a 5 Kittitian pigtail catheter was advanced over the Bentson wire into the abdominal aorta. Via the right groin, a 5 Kittitian pigtail catheter was advanced over the Bentson [...] EKG 12-lead, tracing only (09/28/2018 11:42 AM PAINTINGS RESTORER) [facility] Method Time Signature Interpretation ECG Click View RADIOLOGY Image link RESULTS to view waveform and result Specimen (Source) Anatomical Collection Method Collection Time Re ceived Time Location / / Volume Laterality 09/28/2018 11:42 AM PAINTINGS RESTORER Juan Vásquez MD ECG ORDERABLES Performing Organization Address City/State/ZIP Code Phon e Number RADIOLOGY RESULTS XR Chest 1 View (09/28/2018 11:21 AM PAINTINGS RESTORER) Anatomical Region Laterality Modality Chest Digital Radiography Specimen (Source) Anatomical Location Collection Method / Collectio n Time Received Time / Laterality Volume Impressions 09/28/2018 1:09 PM PAINTINGS RESTORER IMPRESSION: Heart size similar to prior. The thoracic aorta is elongated. No airspace consolidation or pneumothorax. There appears to be a small right pleural effusion. ELAINA HUNTLEY MD Narrative 09/28/2018 1:09 PM PAINTINGS RESTORER CHEST ONE VIEW ??09/28/2018 11:21 AM HISTORY: [...] ORDER BRAYDEN Blood component (09/28/2018 11:11 AM PAINTINGS RESTORER) [facility] Method Time Signature Unit Number [id number] 09/28/2018 [facility] 1:21 PM [facility] Blood Red Blood 09/28/2018 [facility] Component Cells 1:21 PM [facility] Reduced Division 00 09/28/2018 [facility] Number 1:21 PM [facility] Status of No longer 10/02/2018 [facility] Unit available 3:00 AM [facility] 10/02/2018 HOSPITAL 0300 Blood Product [id number] 09/28/2018 [facility] Code 1:21 PM [facility] Unit Status [facility] Specimen Anatomical Collection Method Collection Time Receive d Time (Source) Location / / Volume Laterality 09/28/2018 11:11 09/28/2018 AM PAINTINGS RESTORER 11:44 AM PAINTINGS RESTORER Juan Vásquez MD LABORATORY Performing Organization Address City/State/ZIP Code Phon e Number M [facility] [address] [place], [place] [address] [facility] [address] [place] [address], [facility] [phone] [facility] [address] [place] [address], [facility] [phone] Blood component (09/28/2018 11:11 AM PAINTINGS RESTORER) Patholo gist Method Time Signature Unit Number [id number] 09/28/2018 [facility] 1:[address] [facility] Blood Red Blood 09/28/2018 [facility] Component Cells 1:21 PM PAINTINGS RESTORER [facility] Reduced Division 00 09/28/2018 [facility] Number 1:21 PM [facility] Status of No longer 10/02/2018 [facility] Unit available 3:00 AM [facility] 10/02/2018 HOSPITAL 0300 Blood Product [id number] 09/28/2018 [facility] Code 1:21 PM [facility] Unit Status [facility] Specimen Anatomical Collection Method Collection Time Receive d Time (Source) Location / / Volume Laterality 09/28/2018 11:11 09/28/2018 AM PAINTINGS RESTORER 11:44 AM PAINTINGS RESTORER Juan Vásquez MD LABORATORY Performing Organization Address City/State/ZIP Code Phon e Number [facility] [address] [place], [place] [address] [facility] [address] [place] [address], [facility] [phone] [facility] [address] [place], [place] [address], [facility] [phone] Potassium (09/28/2018 11:11 AM PAINTINGS RESTORER) P athologist Signature Potassium 4.0 3.4 - 5.3 09/28/2018 [facility] mmol/L 12:[address] [facility] Specimen Anatomical Collection Method Collection Time Receive d Time (Source) Location / / Volume Laterality Blood specimen 09/28/2018 11:11 8 (specimen) AM PAINTINGS RESTORER 11:43 AM PAINTINGS RESTORER Ramiro Card MD LAB - BLOOD ORDERABLES Performing Organization Address City/State/ZIP Code Phon e Number [facility] [address] [place] [address] [phone] [facility] [address] [place] [address], [place] [phone] Lipid panel (09/28/2018 11:11 AM PAINTINGS RESTORER) Analysis Performed At [facility] logist Time Signature Cholesterol 143 <200 mg/dL 09/28/2018 [facility] 12:22 PM [facility] Triglycerides 115 <150 mg/dL 09/28/2018 [facility] 12:24 PM [facility] HDL Cholesterol 68 >39 mg/dL 09/28/2018 [facility] 12:24 PM [facility] LDL Cholesterol 52 <100 mg/dL 09/28/2018 [facility] Calculated 12:24 PM [facility] Comment: Desirable: <100 mg/dl Non HDL Cholesterol 75 <130 mg/dL 09/28/2018 12:24 PM [facility] Specimen Anatomical Collection Method Collection Time Receive d Time (Source) Location / / Volume Laterality Blood specimen 09/28/2018 11:11 8 (specimen) AM PAINTINGS RESTORER 11:43 AM PAINTINGS RESTORER Juan Vásquez MD LAB - BLOOD ORDERABLES Performing Organization Address City/State/ZIP Code Phon e Number [facility] [address] [place] [address] [phone] [facility] [address] [place] [address], [place] [phone] (ABNORMAL) ABO/Rh type and screen (09/28/2018 11:11 AM PAINTINGS RESTORER) Component Value Ref Test Analysis Performed At [facility] gist Range Method Time Signature Units Ordered 2 09/28/2018 [facility] 11:54 AM [facility] ABO O 09/28/2018 [facility] 12:28 PM [facility] RH(D) Pos [facility] Antibody Screen Pos (A) 09/28/2018 [facility] 12:28 PM [facility] Test Valid Only [facility] 09/28/2018 [facility] At [facility] 11:47 AM [facility]OSPITAL Specimen Expires 10/01/2018 09/28/2018 [facility] 11:47 AM [facility] Crossmatch Red Blood Cells 09/28/2018 [facility] 11:54 AM [facility] Blood Bank Delay in availability of Red Blood Cells called to 09/28/2018 [facility] Comment Esme in Preop at 1228 re 12:37 PM [facility] Antibody ANTI-Rosa 09/28/2018 [facility] Identification 1:26 PM [facility] Antigen Type [place] Negative 09/28/2018 [facility] 1:26 PM [facility] Specimen Anatomical Collection Method Collection Time Receive d Time (Source) Location / / Volume Laterality Blood specimen 09/28/2018 11:11 8 (specimen) AM PAINTINGS RESTORER 11:44 AM PAINTINGS RESTORER Juan Vásquez MD LAB - BLOOD BANK TEST ORDER Performing Organization Address City/State/ZIP Code Phon e Number [facility] [address] [address] [facility] [address] [place] [address], [place] [phone] (ABNORMAL) Hemoglobin A1c (09/28/2018 11:11 AM PAINTINGS RESTORER) P athologist Signature Hemoglobin A1C 5.7 (H) 0 - 5.6 % 09/28/2018 [facility] 12:08 PM [facility] Comment: Normal <5.7% Prediabetes 5.7-6.4% ??Diab etes 6.5% or higher - adopted from ADA consensus guidelines. Specimen Anatomical Collection Method Collection Time Receive d Time (Source) Location / / Volume Laterality Blood specimen 09/28/2018 11:11 8 (specimen) AM PAINTINGS RESTORER 11:43 AM PAINTINGS RESTORER Juan Vásquez MD LAB - BLOOD ORDERABLES Performing Organization Address City/State/ZIP Code Phon e Number [facility] [address] [place] [address] [facility] [address] [place] [address], [place] [phone] (ABNORMAL) Creatinine (09/28/2018 11:11 AM PAINTINGS RESTORER) P athologist Signature Creatinine 1.46 (H) 0.66 - 09/28/2018 [facility] 1.25 mg/dL 12:22 PM [facility] GFR Estimate 47 (L) >60 09/28/2018 [facility] mL/min/1.7 12:[address] Comment: Non GFR Calc GFR Estimate If 57 (L) >60 mL/min/1.7m2 09/28/2018 12:22 PM [facility] Comment: GFR Calc Specimen Anatomical Collection Method Collection Time Receive d Time (Source) Location / / Volume Laterality Blood specimen 09/28/2018 11:11 8 (specimen) AM PAINTINGS RESTORER 11:43 AM PAINTINGS RESTORER Juan Vásquez MD LAB - BLOOD ORDERABLES Performing Organization Address City/State/ZIP Code Phon e Number [facility] [address] [address] [facility] [address] [address], [place] [phone] LAB RESULT - HIM SCAN (09/24/2018 12:00 AM PAINTINGS RESTORER) Specimen (Source) Anatomical Location Collection Method / Collectio n Time Received Time / Laterality Volume 09/24/2018 Narrative This result has an attachment that is no t available. Provider Outside NON-BEAKER LAB TESTING EKG CARDIAC - HIM SCAN (09/24/2018 12:00 AM PAINTINGS RESTORER) Specimen (Source) Anatomical Location Collection Method / [...] (TYLENOL) tablet 975 Given 09/29/2018 5:41 AM PAINTINGS RESTORER 975 mg mg 975 mg, Oral, EVERY 8 HOURS, First dose on Thu09/28/18 at 2200, For 3 days, Do not use if patient has an active opioid/acetaminophen combined analgesic product ordered for pain. Maximum acetaminophen dose from all sources = 75 mg/kg/day not to exceed 4 grams/day., Post-procedure Given 09/28/2018 9:50 PM PAINTINGS RESTORER 975 mg atorvastatin (LIPITOR) tablet 40 mg Given 09/28/2018 9:50 PM PAINTINGS RESTORER 40 mg 40 mg, Oral, EVERY EVENING, First dose on Thu09/28/18 at 2000 heparin 10,000 units in 1000 mL 0.9% Given 09/28/2018 1:37 PM CS T 1,000 mLs sodium chloride PRN, Starting on Thu09/28/18 at 1335, Intra-procedure Given 09/28/2018 1:36 PM PAINTINGS RESTORER 1,000 mLs Given 09/28/2018 1:35 PM PAINTINGS RESTORER 1,000 mLs lactated ringers infusion New Bag 09/29/2018 2:48 AM PAINTINGS RESTORER 125 mL/hr at 125 mL/hr, Intravenous, CONTINUOUS, NOT for patient on renal dialysis. Saline lock after 1 liter if taking PO fluids., Post-procedure, Starting on Thu09/28/18 at 1800, Until Thu09/29/18 at 1753 Rate/Dose Verify 09/29/2018 12:39 AM PAINTINGS RESTORER 125 mL/hr New Bag 09/28/2018 6:31 PM PAINTINGS RESTORER 125 mL/hr lisinopril (PRINIVIL/ZESTRIL) tablet 5 m g Given 09/29/2018 8:21 AM PAINTINGS RESTORER 5 mg 5 mg, Oral, 2 TIMES DAILY, First dose on Thu09/28/18 at 2100 Given 09/28/2018 9:52 PM PAINTINGS RESTORER 5 mg melatonin tablet 10 mg Given 09/29/2018 2:48 AM PAINTINGS RESTORER 10 mg 10 mg, Oral, AT BEDTIME PRN, sleep, Starting on Thu09/29/18 at 0044 metoprolol tartrate (LOPRESSOR) tablet 5 0 mg Given 09/29/2018 8:21 AM PAINTINGS RESTORER 50 mg 50 mg, Oral, 2 TIMES DAILY, First dose on Thu09/28/18 at 2100 Given 09/28/2018 9:50 PM PAINTINGS RESTORER 50 mg oxyCODONE (ROXICODONE) tablet 5 mg Given 09/28/2018 10:49 PM PAINTINGS RESTORER 5 mg 5 mg, Oral, EVERY 3 HOURS PRN, other, pain control or improvement in physical function. Hold dose for analgesic side effects., Starting on Thu09/28/18 at 1751, Notify provider to assess for uncontrolled pain or analgesic side effects. Hold while on GALLERY INTERN or with regular IV opioid dosing. Maximum total is 40 mg in 24 hours., Post-procedure sodium chloride (PF) 0.9% PF flush 3 mL Given 09/28/2018 9:58 PM PAINTINGS RESTORER 3 mLs 3 mL, Intracatheter, EVERY 8 HOURS, First dose on Thu09/28/18 at 2200, And Q1H PRN, to lock peripheral IV dormant line., Post-procedure terazosin (HYTRIN) capsule 5 mg Given 09/28/2018 10:49 PM PAINTINGS RESTORER 5 mg 5 mg, Oral, AT BEDTIME, First dose on Thu09/28/18 at 2200 documented in this encounter Active and Recently Administered Medications Times are shown in PAINTINGS RESTORER. Scheduled Medication Order 09/27/2018 09/28/2018 09/29/2018 acetaminophen [...] South RN ) 0541 (Given - Provider: Griselda Dinero [...] Volume Adjustment - Provider: Mattie Marmolejo APRN PRINT SUPPORT SPECIALIST)1432 (Anesthesia Volume Adjustment - Provider: Mattie Marmolejo APRN PRINT SUPPORT SPECIALIST) at 25 mL/hr, Intravenous, CONTINUOUS, IF [...] analgesic side effects. Hold whil e on GALLERY INTERN or with regular IV opioid dosing. Maximum total is 40 mg in 24 hours., Post-procedure sodium chloride (PF) 0.9% PF flush 3 mL 3 mL, Intracatheter, EVERY 1 HOUR PRN, l ine flush, for peripheral IV flush post IV meds, Starting Thu09/28/18 at 1751, Post-procedure documented in this encounter Care Teams Finisher Machine Relationship Specialty Start Date End Date Clinic, [facility] PCP - General 05/12/17 [address] [place] [address] documented as of this encounter
--- OUTSIDE RECORDS SUMMARY | 2022-08-14 11:17 | XMS_ITS | Encounter Summary ---
:1940 Author Organization [place] Address [address] [place] [address] Care Team Providers Name Role Phone Clinic, [facility] Primary Care Provider [phone] Reason for Visit Auth/Cert Specialty Diagnoses / Procedures Referred By Contact Refer red To Contact Surgery Diagnoses ABDOMINAL AORTIC ANEURYSM Sh Periop Services Procedures ENDOVASCULAR REPAIR ANEURYSM ABDOMINAL AORTA [address] [place] [address] Phone: Referral ID Status Reason Start Date Expiration Date Visits Requ ested Visits Authorized [id number] 1 1 Encounter Details Date Type Department Care Team Description 09/28/2018 Anesthesia Event M [facility] Marylou Asher MD [facility] [address] [place] [address] [id number] [facility] Mattie Monahan, SPEECH COMMUNICATION INSTRUCTOR COUNTER CONTROL OPERATOR [address] [place] [id number] [address] [place] [...] Angela ts, Mattie Farrell, of Intubation: Easy; SPEECH COMMUNICATION INSTRUCTOR COUNTER CONTROL OPERATOR SPEECH COMMUNICATION INSTRUCTOR COUNTER CONTROL OPERATOR Airway Size: 8; Cuffed; Oral; Blade Type: Glidescope; Blade Size: 4; Place by: EA COUNTER CONTROL OPERATOR; Insertion Attempts: 1; Secured at (cm)to lip: 23 cm; Breath Sounds: Equal, clear and bilateral; Dentition: Intact, Unchanged; Grade View of Cords: 1; Airway Adjuncts: [place] scope Urethral Catheter 09/28/18; 1315; No; 09/28/18 [...] Asher MD September 28, 2018 3:11 PM GER NC Anesthesia Procedure Notes - Ling Asher MD - 09/28/2018 3:10 PM MANAGER NC Associated Order(s): A Line Catheter Placement ARTERIAL [...] Yes IBP within 10% of NIBP: Yes GER NC Anesthesia Preprocedure Evaluation - Ling Asher MD [...] alternatives discussed with: Patient.. Ling Asher MD GER NC documented in this encounter Miscellaneous Notes Anesthesia [...] (Last set prior to Anesthesia Care Transfer) COUNTER CONTROL OPERATOR VITALS 09/28/2018 1428 - 09/28/2018 1506 09/28/2018 Resp Rate (set): 10 Electronically Signed By: Mattie Marmolejo APRN CRNA September 28, 2018 3:06 PM GER NC documented in this encounter Plan of Treatment Not on filedocumented as of this encounter Procedures Procedure Name Priority Date/Time Associated Diagnosis Comme nts ANE A LINE CATHETER Routine 09/28/2018 3:10 PM MANAGER NC PLACEMENT Procedure Note - Ritu Asher MD [...] (CLEOCIN) infusion 900 Given 09/28/2018 1:18 PM MANAGER NC 900 mg mg Routine, 900 mg, Intravenous, PRE-OP/PRE-PROCEDURE, Starting on Thu09/28/18 at 1101, For 1 dose, Give first dose within 1 hour PRIOR to incision., Indications: Perioperative Pharmacoprophylaxis, Pre-procedure dexmedetomidine (PRECEDEX) 4 mcg/mL bolu s Bolus 09/28/2018 2:19 PM MANAGER NC 8 mcg CONTINUOUS PRN, Starting on Thu09/28/18 at 1216, Anesthesia Intra-op Bolus 09/28/2018 1:12 PM MANAGER NC 12 mcg Bolus 09/28/2018 1:02 PM MANAGER NC 8 mcg ePHEDrine injection Given 09/28/2018 1:57 PM MANAGER NC 5 mg PRN, Starting on Thu09/28/18 at 1345, Anesthesia Intra-op Given 09/28/2018 1:49 PM MANAGER NC 5 mg Given 09/28/2018 1:45 PM MANAGER NC 5 mg fentaNYL (PF) (SUBLIMAZE) injection Given 09/28/2018 1:34 PM MANAGER NC 50 mcg PRN, Administer over 3-5 Minutes, Starting on Thu09/28/18 at 1302, Anesthesia Intra-op Given 09/28/2018 1:02 PM MANAGER NC 50 mcg lactated ringers infusion New Bag 09/28/2018 1:11 PM MANAGER NC CONTINUOUS PRN, Anesthesia Intra-op, Starting on Thu09/28/18 at 1311, Until Thu09/28/18 at 1506 lidocaine 2% injection (MDV) Given 09/28/2018 1:02 PM MANAGER NC 100 mg PRN, Starting on Thu09/28/18 at 1302, Anesthesia Intra-op phenylephrine 0.2 mg/mL Rate/Dose Change 09/28/2018 2:17 0.1 mcg/kg /min 2.54 mL/hr (mcg/kg/min) drip PM MANAGER NC CONTINUOUS PRN, Starting on Thu09/28/18 at 1406, Anesthesia Intra-op Rate/Dose Change 09/28/2018 2:12 PM MANAGER NC 0.15 mcg/kg/min 3.82 mL/hr New Bag 09/28/2018 2:06 PM MANAGER NC 0.25 mcg/kg/min 6.36 mL/hr propofol (DIPRIVAN) infusion New Bag 09/28/2018 1:11 PM 35 mcg/kg/min 17.8 mL/hr Intravenous, CONTINUOUS PRN, MANAGER NC Starting on Thu09/28/18 at 1311, Anesthesia Intra-op propofol (DIPRIVAN) injection 10 mg/mL v ial Given 09/28/2018 1:02 PM MANAGER NC 200 mg PRN, Starting on Thu09/28/18 at 1302, Anesthesia Intra-op rocuronium (ZEMURON) injection Given 09/28/2018 1:02 PM MANAGER NC 50 mg PRN, Starting on Thu09/28/18 at 1302, Anesthesia Intra-op vecuronium (NORCURON) injection Given 09/28/2018 2:17 PM MANAGER NC 2 mg PRN, Starting on Thu09/28/18 at 1334, Anesthesia Intra-op Given 09/28/2018 1:34 PM MANAGER NC 2 mg documented in this encounter Care Teams Backend Java Developer Relationship Specialty Start Date End Date [facility] - General 05/12/17 [address] [place] [address] documented as of this encounter
--- OUTSIDE RECORDS SUMMARY | 2022-08-14 11:17 | XMS_ITS | Encounter Summary ---
:1940 Author Organization [place] Address [address] [facility] 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 [place] [address] [place], [place] [phone] [address] (Work) [phone] Social History Tobacco Use Types Packs/Day Years [...] Primary documented in this encounter Care Teams Pollution Control Chemist Relationship Specialty Start Date End Date [facility] PCP - General 05/12/[address] [place], [place] [phone] documented as of this encounter
--- OUTSIDE RECORDS SUMMARY | 2022-08-14 11:18 | XMS_ITS | Encounter Summary ---
:1940 Author Organization [place] Address [address] [place] [address] Care Team Providers Name Role Phone Primary Dr, Unknown Primary Care Provider Unavailable Reason for Visit Reason Onset Date Comments Referral 10/16/2016 [facility] Encounter Details Date Type Department Care Team Description 10/16/2016 Telephone [facility] Jon White Referral ([facility]) [place] Anat Burgos MD [address] [place] [phone] [place] [address] (Wo rk) Social History Tobacco [...] get Valium before procedure and will have ross carrier driver with him. MOHS at 10 45 am. UNDERLAY MACHINE OPERATOR Telephone Encounter - Aruna Rodriguez - 10/16/2016 3:11 PM CST Pt returned RN (Lisa) phone call. Please call again Thursday AM 10/17/16. UNDERLAY MACHINE OPERATOR Telephone Encounter - Lisa Diaz RN - 10/16/2016 11:11 AM CST Received fax from central lab pathology from [place] for pt with BCC on nose. Pt has appt at 10 45 pm on for second opinion on skin cancer and questions. Left message for pt to clarify whether heis planning to come in for MOHS appt or just regular appt. UNDERLAY MACHINE OPERATOR documented in this encounter Plan of Treatment Not on filedocumented as of this encounter Visit Diagnoses Not on filedocumented in this encounter Care Teams Entry Level Web Developer Relationship Specialty Start Date End Date Primary Dipak Kasper MD PCP - General 09/21/1204/18 documented as of this encounter
--- OUTSIDE RECORDS SUMMARY | 2022-08-14 11:18 | XMS_ITS | Encounter Summary ---
:1940 Author Organization [place] Address [address] [place] [address]. [place] [address] Care Team Providers Name Role Phone Celina Coley Primary Care Provider Reason for Visit Auth/Cert Specialty Diagnoses / Procedures Referred By Contact Refer red To Contact Intensive Care Diagnoses Opioid overdose, accidental or unintentional, initial encounter (H) Aspiration pneumonia, unspecified aspiration pneumonia type, unspecified laterality, unspecified part of lung (H) Unresponsiveness Intensive Care [address] [place] [address] Phone: Referral ID Status Reason Start Date Expiration Date Visits Requ ested Visits Authorized [id number] 1 1 Encounter Details Date Type Department Care Team Description 05/06/2017 Anesthesia Event M [facility] HOME HEALTH ADMINISTRATOR RADIO RECORDER [address] [place] [address] ANES [phone] [place] [address] (Wo rk) Anesthesia Record Procedure Summary Procedure Name Responsible Anesthesiologist Anesthesia Start Ti me Anesthesia Stop Time IV START 05/06/17212005/06/172140 Events Date Time Event Comment 05/06/20172120 An Start 2140 Quick Note Diagnosis: Venou s Insufficiency Procedure: IV Start Ordering Physici an: Dr Rodriguez Location:[facility] ICU 357 2141 An Stop Electronically [...] RN Darby, Timo thy J, (difficulty standing, HOME HEALTH ADMINISTRATOR CARDROOM SUPERVISOR alerted mental status) Peripheral IV 05/06/17; 2135; 20 G; 05/06/17 2135 by 05/08/17 0300 by Right; Lower forearm; Albino Benavidez APRN Graa lum, Scott, RN Alcohol; Injectable; RADIO RECORDER Tolerated well Peripheral IV 05/06/17; 2140; 20 G; 05/06/17 2140 by 05/08/17 1619 by Right; Upper forearm; Albino Benavidez APRN With Rosette vieyra Alcohol; Injectable; RADIO RECORDER JOSE Clifton Tolerated well documented in this [...] filedocumented in this encounter Care Teams Agricultural Plow Operator Relationship Specialty Start Date End Date Celina Coley PCP - General Family Practice 05/05/17 05/11/[address] [address] documented as of this encounter
--- OUTSIDE RECORDS SUMMARY | 2022-08-14 11:18 | XMS_ITS | Encounter Summary ---
:1940 Author Organization [place] Address [address] [place] [address] Care Team Providers Name Role Phone Primary Dipak Kasper MD Primary Care Provider Unavailable Celina Coley Primary Care Provider [facility] Primary Care Provider [phone] Jon White MD Unavailable [phone] Ramiro Loco MD Unavailable Encounter Details Date Type Department Care Team Description 11/29/2014 [facility]est[facility] - [facility] George Secretary OR [address] [place] [address] [place], [place] [phone] [id number] Social History Tobacco Use Types Packs/Day Years [...] Hydration: adequate Anesthetic complications: no Additional Notes: ILIZING MACHINE OPERATOR Anesthesia Preprocedure Evaluation - Néstor Stack - 11/29/2014 10:00 AM CST Anesthesia Evaluation Patient summary reviewed No history of anesthetic complications Airway Mallampati: II Neck ROM: full Pulmonary - negative ROS and normal exam Cardiovascular (+) hypertension well controlled, (-) past RI, CAD, CABG/stent, dysrhythmias ECG reviewed Rhythm: regular Rate: normal Neuro/Psych - negative ROS Endo/Other (+) diabetes mellitus type 2 well controlled, obesity, GI/Hepatic/Renal - negative ROS Dental - normal exam Anesthesia Plan Planned anesthetic: general endotracheal Decadron (8 mg), Zofran. ASA 2 Induction: intravenous Anesthetic plan and risks discussed with: patient Post-op plan: routine recovery ILIZING MACHINE OPERATOR documented in this encounter Miscellaneous [...] documented as of this encounter Care Teams Software Packager Relationship Specialty Start Date End Date Primary Dipak Kasper MD PCP - General 09/21/1204/18 Celina Coley PCP - General Family Practice 05/05/17 05/11/[address] [address] Kehinde Portillo PCP - General 05/12/[address] [address] Jon White Assigned Surgical Provider 08/10/20 12/08/20 MD Aubrey [address] [place] [address] Ramiro Loco MD Assigned Heart and 08/10/20 05/11/21 [address] [place] [address] Vascular Provider [place] [address] documented as of this encounter
--- OUTSIDE RECORDS SUMMARY | 2022-08-14 11:18 | XMS_ITS | Encounter Summary ---
:1940 Author Organization [place] Address [address] [place] [address] Care Team Providers Name Role Phone Primary Dr, Dipak WELSH Primary Care Provider Unavailable Reason for Visit Reason Onset Date Comments Appointment 10/30/2016 Encounter Details Date Type Department Care Team Description 10/30/[address] [facility] Jon White, Appointment Miguel Coppola MD [address] [place] [phone] [place] [address] (Wo rk) Social History Tobacco [...] before procedure. Pt's daughter will accompany him. LE PREP TECHNICIAN Telephone Encounter - Lisa Diaz RN - 10/30/2016 2:33 PM CST Left detailed message for pt' daughter explaining patient can have MOHS done next week in order to save himself an extra trip or they can just come in and have consult 1st. LE PREP TECHNICIAN Telephone Encounter - Aruna Rodriguez - 10/30/2016 8:14 AM CST Patient's daughter would like clarification as to whether Mr. Hendricks is having Mohs surgery rather than consult only - as it's scheduled @ 10:45. Please advise Raquel. LE PREP TECHNICIAN documented in this encounter Plan of Treatment Not on filedocumented as of this encounter Visit Diagnoses Not on filedocumented in this encounter Care Teams Pharmacy Informaticist Relationship Specialty Start Date End Date Primary Dipak Kasper MD PCP - General 09/21/1204/18 documented as of this encounter
--- OUTSIDE RECORDS SUMMARY | 2022-08-14 11:18 | XMS_ITS | Encounter Summary ---
:1940 Author Organization [place] Address [address] [place] [address] Care Team Providers Name Role Phone Primary Dipak Kasper MD Primary Care Provider Unavailable Celina Coley Primary Care Provider [facility] Primary Care Provider [phone] Jon White MD Unavailable [phone] Ramiro Loco MD Unavailable Encounter Details Date Type Department Care Team Description 11/29/2014 Surgery - [facility] Hang Mccl[place], [facility] OR [facility] [address] [place] [address] [place] [address] [phone] (Wo rk) Social History Tobacco Use Types [...] 90.7 kg (200 lb) 11/29/2014 9:33 AM LAB INSTRUCTOR Height 180.3 cm (5' 11) 11/29/2014 9:33 AM LAB INSTRUCTOR Body Mass Index 27.89 11/29/2014 9:33 AM LAB INSTRUCTOR documented in this encounter Plan of Treatment Not on filedocumented as of this encounter Visit Diagnoses Not on filedocumented in this encounter Additional Health Concerns Infection Onset Date Last Indicated Resolved Time MRSAComment: Positive 02/17/11 and 09/22/12 11/05/2018 019 Negatives 05/03/14 (HE), 12/01/14 (HE) documented as of this encounter Care Teams Wet Roller Relationship Specialty Start Date End Date Primary Dipak Kasper MD PCP - General 09/21/1204/18 Celina Coley PCP - General Family Practice 05/05/17 05/11/[address] [address] Kehinde Portillo PCP - General 05/12/[address] [address] Jon White Assigned Surgical Provider 08/10/20 12/08/20 MD Aubrey [address] [place] [address] Ramiro Loco MD Assigned Heart and 08/10/20 05/11/21 [address] [facility] Vascular Provider [place] [address] documented as of this encounter
--- OUTSIDE RECORDS SUMMARY | 2022-08-14 11:18 | XMS_ITS | Encounter Summary ---
:1940 Author Organization [place] Address [address] [place] [address] Care Team Providers Name Role Phone Primary Dr, Unknown Primary Care Provider Unavailable Reason for Visit Reason Comments Dressing Change Encounter Details Date Type Department Care Team Description 11/18/2016 Allied Health/Nurse [facility] Dressing Change Visit [address] [phone] Social History Tobacco Use [...] healed. IN CASE OF EMERGENCY: Dr White [phone] If you were seen in [place] call: [phone] If you were seen in [place] call: [phone] ICAL ACCOUNT SPECIALIST documented in this encounter Progress Notes Lillian [...] needed. Patient verbalized understanding. .Marva Aj CMA ICAL ACCOUNT SPECIALIST documented in this encounter Plan of Treatment Not on filedocumented as of this encounter Visit Diagnoses Diagnosis Encounter for change or removal of surgi hannah wound dressing - Primary documented in this encounter Care Teams Customs Compliance Director Relationship Specialty Start Date End Date Primary Dipak Kasper, PCP - General 09/21/1204/18 documented as of this encounter
--- OUTSIDE RECORDS SUMMARY | 2022-08-14 11:18 | XMS_ITS | Encounter Summary ---
:1940 Author Organization [facility] Address [address] [place] [address] Care Team Providers Name Role Phone Primary Dr, Unknown Primary Care Provider Unavailable Reason for Visit Reason Comments Back Pain Leg Pain Encounter Details Date Type Department Care Team Description [facility] [address] [place], [place] [id number] Acute low back pain 04/30/2017 Encounter [facility] Dilshad John MD [address] [place] [address] due to trauma [address] Provider, Historical [address] [place] [address] Social History Tobacco Use Types [...] John MD - 04/30/2017 2:09 PM CDT [facility] MEDICINE DISCHARGE SUMMARY Primary Care Physician: [...] COURSE: Nondisplaced insufficiency type sacral fractures - [facility] consult, patient of Dr Mcclure and his injury was described to him -no surgery inidcated - IV dilaudid. He also does ok with oral oxycodone and [place] - taper off IV opioids and optimize [...] MULTIVITAMIN Tab Dose: 1 tablet Generic drug: multivitamin,ua-rtbu-wfscvmef 1 tablet, Oral, DAILY desonide 0.05 % [...] in 2-3 weeks or as needed at [facility]. Call our scheduling line at [phone] to make an appointment if you do [...] Comments Follow-up in: [facility] Follow-up appointment with Primary [...] EMR for more detailed significant labs, imaging, senior science consultant notes etc. Total time spent on [...] Ca Plunkett - 04/30/2017 12:19 PM CDT LOAN INTERVIEWER TREATMENT NOTE Name: Speedy Burris Eladio : [...] steroid taper upon discharge PT/OT today Remove chpaman catheter, monitor ability to void Continue pain [...] Plans: Nondisplaced insufficiency type sacral fractures - [facility] consult, patient of Dr Mcclure and his injury was described to him -no surgery inidcated - IV dilaudid. He also does ok with oral oxycodone and [place] - taper off IV opioids and optimize [...] Spine Without Contrast Result Date: 04/29/2017 [facility] MR LUMBAR SPINE WO CONTRAST 04/28/2017 2:12 [...] right neural foraminal stenosis. Dilshad John MD [facility] Hospitalist Jeanette Santana, [facility] - 04/28/2017 8:59 AM CDT Pharmacy Note - Admission Medication History Pertinent Provider Information: n/a Prior To Admission (TAR PROCESSING TECHNICIAN) med list completed and updated in EMR. TAR PROCESSING TECHNICIAN Med List Medication Sig Note Last Dose [...] day. 04/27/2017 at just started 04/27 ??? multivitamin,ar-klxu-thmgtsej (COMPLETE MULTIVITAMIN) Tab Take 1 tablet by mouth daily. Past Week at Unknown time ??? pramipexole (MIRAPEX) 0.5 MG tablet Take 0.5 mg by mouth at bedtime. 04/26/2017 ??? terazosin (HYTRIN) 5 MG capsule Take 5 mg by mouth at bedtime. 04/26/2017 ??? [DISCONTINUED] acetaminophen (TYLENOL ARTHRITIS PAIN) 650 MG CR tablet Take by mouth. 04/28/2017:Received from: [facility] Received Sig: Takes 1 tablet as needed. ??? [DISCONTINUED] atorvastatin (LIPITOR) 40 MG tablet Take 40 mg by mouth. 04/28/2017: Received from: [facility] Received Sig: Take 1 tablet by mouth once daily. ??? [DISCONTINUED] desonide (DESOWEN) 0.05 % lotion Apply topically. 04/28/2017: Received from: [facility] Received Sig: Apply topically to affected area(s) 2 timesdaily. ??? [DISCONTINUED] diclofenac (VOLTAREN) 75 MG EC tablet Take 75 mg by mouth. 04/28/2017: Received from: [facility] Received Sig: Take 1 tablet by mouth 2 times daily with meals. ??? [DISCONTINUED] diflorasone (PSORCON) 0.05 % ointment Apply topically. 04/28/2017: Received from: [facility] Received Sig: Apply topically to affected area(s) once daily. ??? [DISCONTINUED] gabapentin (NEURONTIN) 300 MG capsule Start 1 pill QHS, increase up to TID prn 04/28/2017: Received from: [facility] ??? [DISCONTINUED] HYDROcodone-acetaminophen (NORCO) 7.5-325 mg per tablet Take 1 tablet by mouth. 04/28/2017: Received from: [facility] Received Sig: Take 1 tabletby mouth every 4 hours if needed for Pain May take 1.5 every 4 hours for severe pain ??? [DISCONTINUED] metoprolol tartrate (LOPRESSOR) 50 MG tablet Take 50 mg by mouth. 04/28/2017: Received from: [facility] Received Sig: Take 1 tablet by mouth 2 times daily. ??? [DISCONTINUED] miSOPROStol (CYTOTEC) 200 MCG tablet Take 200 mcg by mouth. 04/28/2017: Received from: [facility] Received Sig: Take 1 tablet by mouth 2 times daily with meals. ??? [DISCONTINUED] morphine (MS CONTIN) 15 MG 12 hr tablet Take 15 mg by mouth. 04/28/2017: Received from: [facility] Received Sig: Take 1 tablet by mouth 2 times daily ??? [DISCONTINUED] multivitamin (ONE A DAY) per tablet Take by mouth. 04/28/2017: Received from: [facility] Received Sig: take 1 tablet by oral route once daily with food ??? [DISCONTINUED] pramipexole (MIRAPEX) 0.5 MG tablet Take 0.5 mg by mouth. 04/28/2017: Received from: [facility] Received Sig: Take 1 tablet by mouth at bedtime. ??? [DISCONTINUED] terazosin (HYTRIN) 5 MG capsule Take 5 mg by mouth. 04/28/2017: Received from: [facility] Received Sig: Take 1 capsule by mouth at bedtime. Information source(s): Patient Summary of Changes to TAR PROCESSING TECHNICIAN Med List New: dulcolax, calcium +d Discontinued: none Changed: diclofenac to qday; misoprostol to qday; mirapex to qhs; Patient was asked about OTC/herbal products specifically. TAR PROCESSING TECHNICIAN med list reflects this. Based on the pharmacist???s assessment, the TAR PROCESSING TECHNICIAN med list information appears reliable Patient appears compliant: Yes Allergies were reviewed, assessed, and updated with the patient. Medications currently not available for use during hospital stay. Family/Patient loss prevention representative states they will bring topicals to [facility]. Thank you for the opportunity to participate [...] point he can't function at home. - [facility] consult, patient of Dr Mcclure - YEVGENIY dillesaid. He also does ok with oral oxycodone and [place] - NPO, IVMF -Also has ordered for [...] care. Talked to patient. Dilshad John MD [facility] Hospitalist documented in this encounter H&P Notes Mili Monet MD - 04/28/2017 2:30 AM CDT Admission History and Physical Speedy Hendricks, 1940, [facility] Prd Acute low back pain due to trauma [M54.5] PCP: Kannan Nieto MD, Code status: Full Code Extended Emergency Contact Information Primary Emergency Contact: Sania Hendricks Address: [address] [place] [address] Mobile Relation: Spouse Secondary Emergency Contact: Chastity Hendricks [facility] Mobile Relation: Child Date of [...] point he can't function at home. - [facility] consult, patient of Dr Mcclure - YEVGENIY jack. He also does ok with oral oxycodone and [place] - NPO, IVMF - Consider steroid but [...] not show any fracture. He was prescribed [place]. The pain did not improve. Patient saw [...] L3-4 ; Surgeon: Hang Mcclure MD; Location: [facility] OR; Service: ??? TONSILLECTOMY Allergies Reviewed [...] mouth 2 (two) times a day. ??? multivitamin,on-iqgc-eenmbpgl (COMPLETE MULTIVITAMIN) Tab Take by mouth. ??? [...] Social History Narrative He severed in the [place]. 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 [...] COMPATIBLE Unit Type O Pos Unit Number [id number] Status Released Component Red Blood Cells PRODUCT CODE [id number] Crossmatch Result Value Ref Range Crossmatch COMPATIBLE Unit Type O Pos Unit Number [id number] Status Released Component Red Blood Cells PRODUCT CODE [id number] Creatinine Result Value Ref Range Creatinine 1.34 [...] patient and family 04/28/2017 Mili Monet MD [facility] Medicine Service documented in this encounter Consult Notes Rae Campo PA-C - 04/28/2017 12:49 PM CDT ORTHOPEDIC CONSULTATION Consultation SHREYA Clarke 1940, [facility] Prd Acute low back pain due to trauma [M54.5] PCP: Kannan Nieto MD, Code status: Full Code Extended Emergency Contact Information Primary Emergency Contact: Sania Hendricks Address: [address] [id number] [facility] Mobile Relation: Spouse Secondary Emergency Contact: Chastity Hendricks [facility] Mobile Relation: Child CHIEF COMPLAINT: [...] progress and he was seen at a [facility] urgent care on 04/22 and was give a medrol dose pack which gave him somepain relief, but the pain returned once the dose pack was finished. He also had a CT scan ordered which he had done at [facility]. He was scheduled to see Dr. Mcclure [...] day. 04/27/2017 at just started 04/27 ??? multivitamin,ns-iagq-wthbdyrv (COMPLETE MULTIVITAMIN) Tab Take 1 tablet by [...] Mcclure and Dr. Burger, on-call surgeon for [facility] and they are in agreement with [...] follow this patient. Thank you for including [facility] in the care of Speedy Hendricks. [...] behalf by Jhon Park, a trained medical assistant supervisor. The creation of this record is [...] L3-4 ; Surgeon: Hang Mcclure MD; Location: [facility]; Service: ??? TONSILLECTOMY Past Medical History: [...] stenosis. Narrative 04/29/2017 9:20 AM CDT [facility] MR LUMBAR SPINE WO CONTRAST 04/28/2017 2:12 [...] might be different from the original. [facility] MR LUMBAR SPINE WO CONTRAST 04/28/2017 2:12 [...] 12-lead, tracing only (04/28/2017 2:05 AM CDT) [facility] gist Method Time Signature Systolic Blood 184 mmHg 04/28/2017 [facility] Pressure 8:51 AM CDT CONVERSION Diastolic Blood 98 mmHg 04/28/2017 [facility] Pressure 8:51 AM CDT CONVERSION Ventricular Rate 60 BPM 04/28/2017 [facility] 8:51 AM CDT CONVERSION Atrial Rate 60 BPM 04/28/2017 [facility] 8:51 AM CDT CONVERSION AZ Interval 160 ms 04/28/2017 [facility] 8:51 AM CDT CONVERSION QRS Duration 88 ms 04/28/2017 [facility] 8:51 AM CDT CONVERSION QT 432 ms 04/28/2017 [facility] 8:51 AM CDT CONVERSION QTc 432 ms 04/28/2017 [facility] 8:51 AM CDT CONVERSION P [place] 16 degrees 04/28/2017 [facility] 8:51 AM CDT CONVERSION R AXIS 16 degrees 04/28/2017 [facility] 8:51 AM CDT CONVERSION T [place] 19 degrees 04/28/2017 [facility] 8:51 AM CDT CONVERSION Interpretation Normal sinus rhythm 04/28/2017 HE R [facility] ECG Normal ECG 8:51 AM CDT CONVERSION No previous ECGs available Confirmed by VEL ??SUKHJINDER WELSH LOC:JN ([id number]) on 04/28/2017 8:5 1:37 AM Specimen Anatomical [...] Lumbago documented in this encounter Care Teams Burr Mill 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
--- OUTSIDE RECORDS SUMMARY | 2022-08-14 11:18 | XMS_ITS | Encounter Summary ---
:1940 Author Organization [facility] Address [address] [place] [id number] Care Team Providers Name Role Phone Primary Dr, Dipak WELSH Primary Care Provider Unavailable Encounter Details Date Type Department Care Team Description 11/29/2014 - Hospital Encounter [facility] Hang Mcclure phoebe stenosis, lumbar region, without neurogenic claudication; 12/01/2014 [facility] MD Koki AAA (abdominal aortic aneurysm) (H); [place] [facility] Diabetes mellitus (H); [address] [facility] ORTHOPEDICS Hypertension; Drive [address] BPH (benign prostatic hyperp lasia); [place], [place] [address] HLD (hyperlipidemia); [id number] [place], [place] Hyperglycemia, drug-induced; [phone] [id number] MRSA (methicillin resistant staph aureus ) [...] 90.7 kg (200 lb) 11/29/2014 9:33 AM PRODUCT ASSURANCE ENGINEER Height 180.3 cm (5' 11) 11/29/2014 9:33 AM PRODUCT ASSURANCE ENGINEER Body Mass Index 27.89 11/29/2014 9:33 AM PRODUCT ASSURANCE ENGINEER documented in this encounter Discharge Summaries Dimas [...] the office in about 2 weeks. Call [phone] if patient needs to schedule appointment. Dimas Hale PA-C Date: 12/01/2014 Time: 7:49 AM UCT ASSURANCE ENGINEER documented in this encounter Medications at [...] CULTURE - Final result (09/22/2012 3:43 PM PRODUCT ASSURANCE ENGINEER) [facility] Records Component Value Range SOURCE Nasal [...] Fowler MD Date: 12/01/2014 Time: 2:00 PM [facility] Family Medicine UCT ASSURANCE ENGINEER Dimas Hale - 12/01/2014 7:25 AM CST [...] Low Dias - 11/30/2014 2:35 PM CST SOLE SKIVER TREATMENT NOTE Name: Speedy Hendricks : 1940 Acupuncture Treatment Patient Type: Orthopedic Intervention Reason: Urinary Retention Patient complaint:: Unable to void Acupunture (Points):: [place] 3, 4, 6, [address] Risks and benefits discussed. Low Ramirez L.Ac. Date: 11/30/2014 Time: 2:36 PM Marcelino Hernandez MD - 11/30/2014 8:13 AM CST [facility] Medicine Service Progress Note Assessment/Plan: -Lumbar [...] Radiology Radiology Results: personally reviewed the impression UCT ASSURANCE ENGINEER Radha Grey - 11/29/2014 5:01 PM CST Acute Pain Management Team Consulting provider: Dr. Mcclure/Dr. Finch POD#:0 Procedure: LEFT L2-3, L3-4 POSTERIOR FUSION AND L3-4 REVISION DECOMPRESSION Home pain regimen: Opioid status: Tolerant [place] 7.5/325 mg-1 tabs q 4 -6 h prn-pt reports taking no more than 6 /day Oxycodone 2.5-5 mg po q 4 h prn_juse recent Rx due to increased nerve pain L leg Arthrotec 75 mg po bid prn Current pain regimen: Will change standard regiment of oxycodone scheduled and oxycodone prn to [place] 7.5/325 and prn oxycodone. Dilaudid IV bumps [...] tolerant , especially whenviewing Rx history of [place] 7.5/325, but he and family report him not taking more than 6 tablets perday of [place] 7.5/325, and have new Rx for oxycodone, but reports only taking 2.5 mg dose at a time. He is very sedated now, and will start out conservatively, not knowing exactly how much [place] he was taking at home. Pt and family reported he is very sensitive to oxycodone, but does well on [place]. Assessment/Plan: [place] 7.3/325 1- tablet every 4 hours Oxycodone -2.5 -5 mg po q 4 h prn BTP Discussed with Dr. Finch Will follow pt Radha Grey RPh 11/29/2014 5:02 PM UCT ASSURANCE ENGINEER Marcelino Finch MD - 11/29/2014 4:45 PM CST [facility] Medicine Service Progress Note Assessment/Plan: -Lumbar [...] Radiology Radiology Results: personally reviewed the impression UCT ASSURANCE ENGINEER Saman Bernard - 11/29/2014 10:38 AM CST [facility](s) Hopes: Pt hopes to have his leg pain stop after surgery. Needs: Pt needs support of family. Resources: pt has his spouse and several family members in the room with him as resources and support. Additional Notes: pt joked with this micro paleontologist about Gaines's Day and Saint Yonatan's Day; to thischaplain, having a sense of humor is an additional resource for this patient. Prayer declined, visitonly. Follow up: None planned. Spiritual care upon request. UCT ASSURANCE ENGINEER documented in this encounter H&P Notes Hang Mcclure - 11/29/2014 10:46 AM CST The patient's history has been reviewed and there are no pertinent changes UCT ASSURANCE ENGINEER documented in this encounter Miscellaneous Notes [...] was seen in the preop area of [facility] today. Low back was marked and [...] two 60 mm rods. The system was QypeRH 3DX. We decorticated the facet joints on [...] the instrumentation. All instrumentation was tightened to lead maintenance technician's specifications. We then closed the deep fascia [...] used during this case Medtronic TSRH 3DX UCT ASSURANCE ENGINEER documented in this encounter Plan of Treatment Not on filedocumented as of this encounter Procedures Procedure Name Priority Date/Time Associated Diagnosis Comme nts CROSSMATCH RED CELLS Routine 12/02/2014 10:40 Res ults for this AM PRODUCT ASSURANCE ENGINEER procedure are i n the results section. CROSSMATCH RED CELLS Routine 12/02/2014 10:40 Res ults for this AM PRODUCT ASSURANCE ENGINEER procedure are i n the results section. XR LUMBAR SPINE PORT Routine 11/29/2014 1:38 Spinal stenosis, Results for this 2/3 VIEWS PM PRODUCT ASSURANCE ENGINEER lumbar region, procedure are in without neurogenic the resul ts claudication section. XR SURGERY CHRIS FLUORO Routine 11/29/2014 1:37 Spinal stenosis , Results for this GREATER THAN 5 MIN PM PRODUCT ASSURANCE ENGINEER lumbar region, procedu re are in without neurogenic the resul ts claudication section. RED CELL ANTIGEN Routine 11/29/2014 10:17 Results for this TYPING NON ABO AM PRODUCT ASSURANCE ENGINEER procedure are in the results section. ANTIBODY Routine 11/29/2014 10:17 Results for this IDENTIFICATION AM PRODUCT ASSURANCE ENGINEER procedure are in the results section. EKG CARDIAC - HIM SCAN 11/29/2014 documented in this encounter Results Crossmatch red cells (12/02/2014 10:40 AM PRODUCT ASSURANCE ENGINEER) [facility] Method Time Signature Crossmatch COMPATIBLE 12/02/2014 BLOOD BANK 10:40 AM PRODUCT ASSURANCE ENGINEER Unit ABO/RH O Pos 12/02/2014 BLOOD BANK 10:40 AM PRODUCT ASSURANCE ENGINEER Unit Number [id number] 12/02/2014 BLOOD BANK 10:40 AM PRODUCT ASSURANCE ENGINEER Status Released 12/02/2014 BLOOD BANK 10:40 AM PRODUCT ASSURANCE ENGINEER Component Red Blood 12/02/2014 BLOOD BANK Cells 10:40 AM PRODUCT ASSURANCE ENGINEER Product Code [id number] 12/02/2014 BLOOD BANK 10:40 AM PRODUCT ASSURANCE ENGINEER Specimen (Source) Anatomical Location Collection Method / Collectio n Time Received Time / Laterality Volume Hang Mcclure MD LAB - BLOOD BANK PRODUCT ORD ER Performing Organization Address [facility] Phon e Number [facility] BLOOD BANK [address] [place] [address] BLOOD BANK [address] [facility] [place] [address] Crossmatch red cells (12/02/2014 10:40 AM PRODUCT ASSURANCE ENGINEER) [facility] gist Method Time Signature Crossmatch COMPATIBLE 12/02/2014 BLOOD BANK 10:40 AM PRODUCT ASSURANCE ENGINEER Unit ABO/RH O Pos 12/02/2014 [facility] BLOOD BANK 10:40 AM PRODUCT ASSURANCE ENGINEER Unit Number [id number] 12/02/2014 BLOOD BANK 10:40 AM PRODUCT ASSURANCE ENGINEER Status Released 12/02/2014 BLOOD BANK 10:40 AM PRODUCT ASSURANCE ENGINEER Component Red Blood 12/02/2014 BLOOD BANK Cells 10:40 AM PRODUCT ASSURANCE ENGINEER Product Code [id number] 12/02/2014 [facility] BLOOD BANK 10:40 AM PRODUCT ASSURANCE ENGINEER Specimen (Source) Anatomical Location Collection Method / Collectio n Time Received Time / Laterality Volume Hang Mcclure MD LAB - BLOOD BANK PRODUCT ORD ER Performing Organization Address [facility] Phon e Number [facility] BLOOD BANK [address] [place] [address] BLOOD BANK [address] [place] [address] XR Lumbar Spine Port 2/3 Views (11/29/2014 1:38 PM PRODUCT ASSURANCE ENGINEER) Anatomical Region Laterality Modality Spine Other Specimen (Source) Anatomical Location Collection Method / Collectio n Time Received Time / Laterality Volume Narrative 11/29/2014 1:51 PM PRODUCT ASSURANCE ENGINEER XR LUMBAR SPINE 2 OR 3 VWS [...] Fluoro G/T 5 Min (11/29/2014 1:37 PM PRODUCT ASSURANCE ENGINEER) Anatomical Region Laterality Modality Abdomen/Pelvis Other Specimen (Source) Anatomical Location Collection Method / Collectio n Time Received Time / Laterality Volume Narrative 11/29/2014 1:37 PM PRODUCT ASSURANCE ENGINEER Please see the Radiology Report for result for body part of interest. Procedure Note Provider, Historical - 03/23/2021Formatt ing of this note might be different from the original. Please see the Radiology Report for resu lt for body part of interest. Hang Mcclure MD IMG DIAGNOSTIC IMAGING ORDER [place] Antibody identification (11/29/2014 10:17 AM PRODUCT ASSURANCE ENGINEER) Patholo gist Method Time Signature Antibody > 3hr for 11/29/2014 BLOOD BANK Identification more 1:34 PM PRODUCT ASSURANCE ENGINEER blood;Ant i-Rosa Specimen Anatomical Collection Method / Collection Time Recei fany Time (Source) Location / Volume Laterality Blood specimen Venipuncture / 11/29/2014 10:17 015 1:34 (specimen) Unknown AM PRODUCT ASSURANCE ENGINEER PM PRODUCT ASSURANCE ENGINEER Hang Mcclure MD LAB - BLOOD BANK TEST ORDER Performing Organization Address City/State/ZIP Code Phon e Number [facility] BLOOD BANK [address] [place] [address] BLOOD BANK [address] [place] [address] Red Cell Antigen Typing Non ABO: (11/29/2014 10:17 AM PRODUCT ASSURANCE ENGINEER) P athologist Signature K Antigen Type Negative 11/29/2014 BLOOD BANK 1:16 PM PRODUCT ASSURANCE ENGINEER Specimen Anatomical Collection Method / Collection Time Recei fany Time (Source) Location / Volume Laterality Blood specimen Venipuncture / 11/29/2014 10:17 015 1:16 (specimen) Unknown AM PRODUCT ASSURANCE ENGINEER PM PRODUCT ASSURANCE ENGINEER Narrative [facility] BLOOD BANK - 11/29/2014 1:16 PM PRODUCT ASSURANCE ENGINEER K Antigen Hang Mcclure MD LAB - BLOOD BANK TEST ORDER Performing Organization Address City/State/ZIP Code Phon e Number [facility] BLOOD BANK [address] [place] [address] BLOOD BANK [address] [place] [address] EKG CARDIAC - HIM SCAN (11/29/2014) Specimen [...] aureus documented in this encounter Care Teams Fur Farmer Relationship Specialty Start Date End Date Primary Dipak Kasper MD PCP - General 09/21/1204/18 documented as of this encounter
--- OUTSIDE RECORDS SUMMARY | 2022-08-14 11:18 | XMS_ITS | Encounter Summary ---
:1940 Author Organization [facility] Address [address] [place] [id number] Care Team Providers Name Role Phone Primary Dr, Dipak WELSH Primary Care Provider Unavailable Reason for Visit Reason Comments Derm Problem MOHS Encounter Details Date Type Department Care Team Description 11/06/[address] [facility] Jon White Basal cell carcinoma of nose (Primary Dx); [facility] [place] MD Aubrey Lentigo; [place] [address] (seborrheic keratosis); [address] [address] [place], [place] [phone] (Work) [phone] Social History Tobacco Use Types Packs/Day Years Used Date Smoking Tobacco: Former Comments: quit 1985 Alcohol Use Standard Drinks/Week Comments Yes 0 (1 standard drink = 0.6 oz pure alcoho l) 10 per week Sex Assigned at Date Recorded Not on file documented as of this encounter Last Filed Vital Signs Vital Sign Reading Time Taken Comments Blood Pressure 203/105 11/06/2016 10:05 AM SLIP FEEDER Pulse 64 11/06/2016 10:05 AM SLIP FEEDER Temperature - - Respiratory Rate - - Oxygen Saturation 96% 11/06/2016 10:05 AM SLIP FEEDER Inhaled Oxygen Concentration - - Weight - - Height - - Body Mass Index - - documented in this encounter Patient Instructions Patient InstructionsMcLillian Aquino CMA - 11/06/2016 10:52 AM CST Sutured Wound Care [facility]: [phone] [facility]: [phone] ? No strenuous activity for 48 hours. [...] occurs. In case of emergency phone:Dr White [phone] FEEDER documented in this encounter Progress Notes Jon [...] ??? Ent surgery tonsils ??? Appendectomy ??? [place] teeth[ ??? Remove hardware foot 09/30/2012 Procedure: [...] will return in one week forwound evaluation. FEEDER documented in this encounter Nursing Notes Farzana Harris CMA - 11/06/2016 10:52 AM CST Surgical Office Location: [facility] [address] [place] [address] FEEDER Lillian Aj CMA - 11/06/2016 10:06 AM CST Initial BP 203/105 mmHg Pulse 64 SpO2 96% Estimated body mass index is 32.10 kg/(m^2) as calculated from the following: Height as of 10/22/12: 1.702 m (5' 7). Weight as of 10/22/12: 92.987 kg (205 lb). . FEEDER documented in this encounter Plan of Treatment Not on filedocumented as of this encounter Procedures Procedure Name Priority Date/Time Associated Diagnosis Comme nts HC MOHS Routine 11/06/2016 10:51 AM Basal cell carcinoma of HEAD/NCK/HND/FT/GEN [employer]IP FEEDER nose 1ST STAGE UP T0 5 BLOCKS HC ADJ TISSUE XFER Routine 11/06/2016 10:51 AM Basal cell carc inoma of LID/NOS/EAR/LIP [employer]IP FE[employer]ER nose 10.1-30 CM documented in this encounter Visit Diagnoses Diagnosis Basal cell carcinoma of nose - Primary Basal cell carcinoma of skin of other an d unspecified parts of face Lentigo Other dyschromia SK (seborrheic keratosis) Other seborrheic keratosis Angioma Hemangioma of unspecified site documented in this encounter Care Teams Chief Librarian Branch Relationship Specialty Start Date End Date Primary Dipak Kasper MD PCP - General 09/21/1204/18 documented as of this encounter
--- OUTSIDE RECORDS SUMMARY | 2022-08-14 11:18 | XMS_ITS | Encounter Summary ---
:1940 Author Organization [facility] Address [address] [place] [id number] Care Team Providers Name Role Phone Celina Coley Primary Care Provider [facility] [place] Primary Care Provider [phone] Reason for Referral Specialty Diagnoses / Procedures Referred By Contact Tam parson To Contact Sanjuanita Ponce RN Referral ID Status Reason Start Date Expiration Date Visits Requ ested Visits Authorized Specialty Diagnoses / Procedures Referred By Contact Tam parson To Contact Adrian Pleitez MD [address] [address] Referral ID Status Reason Start Date Expiration Date Visits Requ ested Visits Authorized Specialty Diagnoses / Procedures Referred By Contact Tam parson To Contact Adrian Pleitez MD [address] [facility] [address] [address] Referral ID Status Reason Start Date Expiration Date Visits Requ ested Visits Authorized Specialty Diagnoses / Procedures Referred By Contact Tam parson To Contact Adrian Pleitez MD [address] [place] [address] Referral ID Status Reason Start Date Expiration Date Visits Requ ested Visits Authorized ome Health Therapies & Aides Specialty Diagnoses / Procedures Referred By Contact Refer red To Contact Adrian Pleitez MD [address] [place] [address] Referral ID Status Reason Start Date Expiration Date Visits Requ ested Visits Authorized - Closed Specialty Diagnoses / Procedures Referred By Contact Refer red To Contact Diagnoses Paroxysmal atrial fibrillation (H) Taran Lugo MD [address] [place] [address] Referral ID Status Reason Start Date Expiration Date Visits Requ ested Visits Authorized [id number] Closed 06/11/2017 06/11/2018 1 1 Reason for [...] part of lung (H) Unresponsiveness Intensive Care [address] [address] Phone: Referral ID Status Reason Start Date Expiration Date Visits Requ ested Visits Authorized [id number] 1 1 Encounter Details Date Type Department Care Team Description 05/05/2017 [facility] Leesa Martinez MD [facility] [address] [place] [address] Opioid overdose, accidental or unintenti onal, initial encounter (Primary Dx); - Encounter Miladys Phillips MD [address] [id number] Aspiration pneumonia, unspecified aspira tion pneumonia type, unspecified laterality, unspecified part of lung (H); 05/12/2017 [facility] Stephany Farley MD [address] [place] [id number] Encephalopathy; [address] Paroxysmal atrial fibrillati on (H); [place] Hyperlipidemia LDL goal <70; [address] Acute left-sided low back pa in without sciatica; [phone] Unresponsivenes s Social History Tobacco Use Types [...] Pleitez MD - 05/12/2017 3:12 PM CDT [facility] Hospitalist discharge note Date of Service [...] follow-up with cardiology, primary care physician in [place] Speedy Mcduffie is a 76 year old male with a past medical history of Htn, CKD, atrial tachycardia, chronic back pain who was admitted on 05/05/2017 with encephalopathy thought due to opioid overdose. ?? 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 Also had been taking gabapentin and flexeril. [...] ? Suspected Aspiration PNA: as above Daughter (AUTOMAT CAR ATTENDANT) found patient with large amount of material [...] had been managed by his PMD and CYBER DEFENSE FORENSICS ANALYST was on Morphine 15 mg po BID (daughter reported that in the past he was confused with Oxycontin),??Kanorado 7/325 mg 1 tab po q4-6 h; he is also on scheduled Gabapentin and prn Flexeril -had a recent admission to [facility] from 04/28-04/30 for severe lower back pain [...] then stop - Consulted PT/OT. ? HTN: CYBER DEFENSE FORENSICS ANALYST on Metoprolol which was dced with bradycardia. [...] Mendes LSW - 05/12/2017 11:10 AM CDT [facility]: [phone]. documented in this encounter Medications at Time [...] continuation of in hospital lisinopril, restart of CYBER DEFENSE FORENSICS ANALYST metoprolol (had been advised against rate slowing agents by cardiology), restart of CYBER DEFENSE FORENSICS ANALYST flexeril and unclear amiodarone plan. states that [...] phone # to [facility] and names of last 2 providers seen. -Provided information on creatinine and GFR lab values as well as last administered doses of PRN metoprolol (05/09), PO metoprolol (05/07 - 1/ CYBER DEFENSE FORENSICS ANALYST dose) and daily lisinopril (05/12) during hospital [...] located a hospital bed for rent near [place] and has made arrangements for delivery today. SW notified [place] and hospitalist to meet with daughter.per request. CC made referral to [facility] per request. Pt's family has used this agency previously. Team Members notified: Hospitalist, RN, CC, PSYCHOLOGICAL TESTS SALES AGENT Plan: Discharge home today with family and home care services through [facility]. Sanjuanita Ponce RN - 05/12/2017 9:44 AM CDT Met w/ pt's dtr Raquel and ADRIANO to discuss dc planning. Raquel has some concerns about pt going home rather than TCU but her sister Chastity is on FMLA and intends to stay at home to care for him. Raquel is a [facility] ICU nurse and memory care program director at [employer]. She has been on FMLA but [...] better today and therapy is recommending OP PT/OT/NETWORK SECURITY ENGINEER if not going to TCU. His pain level is still high with ambulation so he would benefit from home care initially as he will not be going out except to his appts. He would need an RN as well. Raquel would prefer to use home care through the [facility] as it is local and they have used it before. Raquel has contacted a hospital rental company and intends to rent a hospital bed for a while at home. She states this will be delivered today and she is taking care of those arrangements. Also discussed multiple f/u appts needed. She would like to stay within the [facility] system for vascular, cardiac, and sleep study. Contacted [facility] intake [phone] and spoke to Lynn. They would be able to see pt tomorrow at home. Faxed [phone] face sheet and H&P. Will fax orders when completed. Contacted [facility] to make f/u appt with Dr Lugo. Appt made for ThuJun 19 at 2:15 to discuss AC in light of AAA. Spoke w/ Natasha Iraheta NEGATIVE RESTOR[facility]. They do not need to see pt in f/u as strokes likely more related to hypoxia than AF and cardiology will be addressing AF issue. Contacted pt's PCP Dr Celina Coley at [facility]. Appt made for 05/15 at 10:00. Will fax handoff when dc orders complete. Contacted [facility] and appt made for ThuJun [address] Taylor to discuss sleep study. Await Dr Pleitez for further orders for vascular and urology f/u timing. Discussed transportation with dtr Raquel and bedside RN. Raquel's sister was planning on bringing [place] to pickle solution maker pt and he would have to walk [...] Lugo to discuss anticoagulation. Faxed orders to [facility] and left message with Lynn to call Raquel at [phone] toschedule appts. Sent [facility] handoff. Mattie Yanes - 05/11/2017 4:28 PM CDT [facility] Progress Note [facility], Palliative Team PRIMARY FOCUS: ? Symptom/pain management ?? Emotional/spiritual/pentecostalism distress ILLNESS CIRCUMSTANCES: ?? Reviewed documentation. Reflective conversation shared with Ed, which integrated elements of illnessand family narratives.? Context of Serious Illness/Symptom(s) - Pt overdosed on opioid pain relievers accidentally upon treatment for a broken tailbone. ?? Resources for Support - Strong family support from and two daughters, along with a brother who is a Jain construction estimator DISTRESS: ? Emotional/Existential/Relational Distress - Pt is notably thankful for surviving this overdose. He sees that he is not finished with this life, and he is beginning to look toward how best to spend his remaining time. 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 ?? Spiritual/Methodist Distress - None discussed. Pt surprisingly comfortable with his reality of surviving. ?? Social/Cultural/Economic Distress - None discussed? SPIRITUAL/CAODAISM (Coping): ? Latter-Day/Mariah - Hoahaoism. Pt did not particularly identify his own [...] has not discharged. ? Mattie Berrios M.Div. Auricular Acupuncturist Pager [phone] Kassy Go APRN PENSIONS RETIREMENT PLAN SPECIALIST - 05/11/2017 3:55 PM CDT [facility] Palliative Care Progress Note Speedy Mcduffie [...] if evening or weekend. Milana Go APRN, [facility] Palliative Medicine Pager [phone] Attestation: Total time on the floor involved [...] and are neighbors. Pt' daughterRaquel is an AUTOMAT CAR ATTENDANT and daughter Chastity is a pilot safety inspector. Chastity states she is currently on FMLA. [...] Nikhil Rodriguez, - 05/11/2017 10:51 AM CDT [facility] Hospitalist Progress Note Nikhil Rodriguez D.O. Date of service (Date I saw patient): 05/11/2017 Assessment & Plan Speedy Mcduffie is a 76 year old male with a past medical history of Htn, CKD, atrial tachycardia, chronic back pain who was admitted on 05/05/2017 with encephalopathy thought due to opioid overdose. 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 Also had been taking gabapentin and flexeril. [...] ? Suspected Aspiration PNA: as above Daughter (AUTOMAT CAR ATTENDANT) found patient with large amount of material [...] had been managed by his PMD and CYBER DEFENSE FORENSICS ANALYST was on Morphine 15 mg po BID (daughter reported that in the past he was confused with Oxycontin),??Kanorado 7/325 mg 1 tab po q4-6 h; he is also on scheduled Gabapentin and prn Flexeril -had a recent admission to [facility] from 04/28-04/30 for severe lower back pain [...] then stop - Consulted PT/OT. ? HTN: CYBER DEFENSE FORENSICS ANALYST on Metoprolol which was dced with bradycardia. [...] outpt appt will be scheduled to discuss filler leaf cutter long option in light of AAA Interval History: [...] Taran Lugo MD Counters, Natasha Li APRN PENSIONS RETIREMENT PLAN SPECIALIST - 05/11/2017 9:03 AM CDT [facility] Daily Note Admission Date:05/05/2017 Date of [...] Sensory: Normal to light touch Coordination: Intact [id number] Gait: Up with assistance Cardiovascular: Regular rate [...] of small vessel ischemic disease. Natasha Iraheta, MANAGER STRATEGY & ACCOUNT-BC Associated attestation - Raúl Keane MD - [...] Greene MD - 05/10/2017 5:32 PM CDT [facility] Hospitalist Progress Note Assessment & Plan Speedy Mcduffie is a 76 year old male who was admitted on 05/05/2017. 76 year old male who was brought in for evaluation of unresponsiveness. ? 1. Altered mental status/Acute toxic encephalopathy Patient found by daughter (Raquel, AUTOMAT CAR ATTENDANT) after likely prolonged period of unresponsiveness and suspected aspiration. Airway was cleared by daughter, but patient was hypoxic in the 60s for what soundslike at least 40 minutes before oxygen was available. Patient responded to narcan and thus it was suspected that patient had an unintentional opioid overdose with worsening of renal function and taking scheduled morphine 15mg ER BID with Kanorado 7.5/325 1-1.5 tabs PRN q4-6 hours started [...] ? 2. Suspected Aspiration PNA - Daughter (AUTOMAT CAR ATTENDANT) found patient with large amount of material [...] had been managed by his PMD and CYBER DEFENSE FORENSICS ANALYST was on Morphine 15 mg po BID (daughter reported that in the past he was confused with Oxycontin),??Kanorado 7/325 mg 1 tab po q4-6 h; he is also on scheduled Gabapentin and prn Flexeril -and a recent admission to [facility] from 04/28-04/30 for severe lower back pain [...] Consulted PT/OT. ? 6. H/o HTN - CYBER DEFENSE FORENSICS ANALYST on Metoprolol 50 mg po BID for [...] Delgado MD - 05/10/2017 4:04 PM CDT [facility] Cardiology Progress Note Date of Service [...] Delgado MD - 05/09/2017 2:04 PM CDT [facility] Cardiology Progress Note Date of Service [...] Greene MD - 05/09/2017 11:58 AM CDT [facility] Hospitalist Progress Note Assessment & Plan Speedy Mcduffie is a 76 year old male who was admitted on 05/05/2017. 76 year old male who was brought in for evaluation of unresponsiveness. ? 1. Altered mental status/Acute toxic encephalopathy Patient found by daughter (Raquel, AUTOMAT CAR ATTENDANT) after likely prolonged period of unresponsiveness and suspected aspiration. Airway was cleared by daughter, but patient was hypoxic in the 60s for what soundslike at least 40 minutes before oxygen was available. Patient responded to narcan and thus it was suspected that patient had an unintentional opioid overdose with worsening of renal function and taking scheduled morphine 15mg ER BID with Kanorado 7.5/325 1-1.5 tabs PRN q4-6 hours started [...] ? 2. Suspected Aspiration PNA - Daughter (AUTOMAT CAR ATTENDANT) found patient with large amount of material [...] had been managed by his PMD and CYBER DEFENSE FORENSICS ANALYST was on Morphine 15 mg po BID (daughter reported that in the past he was confused with Oxycontin),??Kanorado 7/325 mg 1 tab po q4-6 h; he is also on scheduled Gabapentin and prn Flexeril -and a recent admission to [facility] from 04/28-04/30 for severe lower back pain [...] Consulted PT/OT. ? 6. H/o HTN - CYBER DEFENSE FORENSICS ANALYST on Metoprolol 50 mg po BID for [...] nurse, pt was unresponsive and [facility]. Pt responded to Narcan, suspected accidental overdose [...] Bed to Chair/Chair to Bed Level of [place]: Bed to Chair moderate assist (50% patients effort) Physical Assist/Nonphysical Assist: Bed to Chair 2 persons Weight-Bearing Restrictions full weight-bearing Assistive Device - Transfer Skill Bed to Chair Chair to Bed Rehab Eval rolling walker Transfer Skill: Sit to Stand Level of [place]: Sit/Stand minimum assist (75% patients effort) Physical Assist/Nonphysical Assist: Sit/Stand 2 persons Transfer Skill: Sit to Stand full weight-bearing Assistive Device for Transfer: Sit/Stand rolling walker Transfer Skill: Toilet Transfer Level of [place]: Toilet moderate assist (50% patients effort) Physical Assist/Nonphysical Assist: Toilet 2 persons Assistive Device seat riser;grab bars Balance Balance Comments Reduced dynamic balance Upper Body Dressing Level of [place]: Dress Upper Body minimum assist (75% patients effort) Lower Body Dressing Level of [place]: Dress Lower Body maximum assist (25% patients effort) Physical Assist/Nonphysical Assist: Dress Lower Body 1 person assist Grooming Level of Hoke: Grooming stand-by assist Activities of Daily Living [...] in agreement with plan of care Yes [employer] AM-PAC TM 6 Clicks ?? 2016, Trustees of [facility], under license to [employer]. All rights reserved. 6 Clicks Short Forms Basic Mobility Inpatient Short Form [facility] AM-PAC??? 6 Clicks Daily Activity Inpatient [...] for IV heparin. Previously reported pauses so airline captain BB on hold. Could consider resuming BB and monitoring for pauses or short acting CCB. Would recommending re- consulting EP in am if cards agrees. Continue to monitor on tele. Lindsay Watt PA-C - 05/08/2017 9:13 PM CDT Paged by nursing regarding persistent sinus tachycardia in the 140s this evening. Pt asymptomatic. Reviewed chart. Pt with tachybrady syndrome. Cardiology following. Pt's CYBER DEFENSE FORENSICS ANALYST BB has been on hold as wasalternating between periods of sinus tach and sinus dani with up to 3 second pause. Will order PRN IV Metoprolol 2.5 mg q 4 hrs PRN. Monitor. If pt should become symptomatic or HR's continue to be persistently elevated, could increase dose of IV Metoprolol or reinitiate CYBER DEFENSE FORENSICS ANALYST BB. Stephany Farley MD - 05/08/2017 2:27 PM CDT [facility] Hospitalist Progress Note Date of Service (when I saw the patient): 05/08/2017 Assessment & Plan Speedy Mcduffie is a 76 year old male who was brought in for evaluation of unresponsiveness. ? 1. Altered mental status/Acute toxic encephalopathy Patient found by daughter (Raquel, AUTOMAT CAR ATTENDANT) after likely prolonged period of unresponsiveness and suspected aspiration. Airway was cleared by daughter, but patient was hypoxic in the 60s for what soundslike at least 40 minutes before oxygen was available. Patient responded to narcan and thus it was suspected that patient had an unintentional opioid overdose with worsening of renal function and taking scheduled morphine 15mg ER BID with Kanorado 7.5/325 1-1.5 tabs PRN q4-6 hours started [...] ? 2. Suspected Aspiration PNA - Daughter (AUTOMAT CAR ATTENDANT) found patient with large amount of material [...] between periods of sinus tach and sinus adni with up to 3 second pause. No [...] had been managed by his PMD and CYBER DEFENSE FORENSICS ANALYST was on Morphine 15 mg po BID (daughter reported that in the past he was confused with Oxycontin),??Kanorado 7/325 mg 1 tab po q4-6 h; he is also on scheduled Gabapentin and prn Flexeril -and a recent admission to [facility] from 04/28-04/30 for severe lower back pain [...] Consulted PT/OT. ? 6. H/o HTN - CYBER DEFENSE FORENSICS ANALYST on Metoprolol 50 mg po BID for [...] planning totake patient home. Stephany Farley MD [phone] (P) Text page (7am to 6pm) Interval [...] hospital, year, though thought he was in [place], [place]. No acute distress. Non-toxic. Respiratory: Clear [...] Farley MD - 05/07/2017 10:00 PM CDT [facility] Hospitalist Progress Note Date of Service (when I saw the patient): 05/07/2017 Assessment & Plan Speedy Mcduffie is a 76 year old male who was brought in for evaluation of unresponsiveness. ? 1. Altered mental status/Acute toxic encephalopathy Patient found by daughter (Raquel, AUTOMAT CAR ATTENDANT) after likely prolonged period of unresponsiveness and suspected aspiration. Airway was cleared by daughter, but patient was hypoxic in the 60s for what soundslike at least 40 minutes before oxygen was available. Patient responded to narcan and thus it was suspected that patient had an unintentional opioid overdose with worsening of renal function and taking scheduled morphine 15mg ER BID with Kanorado 7.5/325 1-1.5 tabs PRN q4-6 hours started [...] ?? 2. Suspected Aspiration PNA - Daughter (AUTOMAT CAR ATTENDANT) found patient with large amount of material [...] had been managed by his PMD and CYBER DEFENSE FORENSICS ANALYST was on Morphine 15 mg po BID (daughter reported that in the past he was confused with Oxycontin),??Kanorado 7/325 mg 1 tab po q4-6 h; he is also on scheduled Gabapentin and prn Flexeril -and a recent admission to [facility] from 04/28-04/30 for severe lower back pain [...] more alert. ? 6. H/o HTN - CYBER DEFENSE FORENSICS ANALYST on Metoprolol 50 mg po BID for HTN. - Holding now with bradycardia. Will follow. - monitor BP ? 7. Dyslipidemia - hold CYBER DEFENSE FORENSICS ANALYST Atorvastatin while he is npo ? 8 [...] monitoring in ICU overnight. Stephany Farley MD [phone] (P) Text page (7am to 6pm) Interval History Patient given ativan overnight and somnolent when patient's daughter present during day. Patient also noting headache throughout day. Head CT done without any acute findings. Kanorado with minimal improvement. Patient's mentation improved by [...] patient. KATIA DAVID MD Afsaneh Ceja APRN PENSIONS RETIREMENT PLAN SPECIALIST - 05/07/2017 5:24 PM CDT ICU Multi-Disciplinary [...] Will cont to monitor. 05/07/2017 Marie Ritter STEAMER TENDER Milana Rodriguez MD - 05/06/2017 11:40 PM CDT Patient with intolerable pain on acetaminophen alone. I ordered gabapentin and low dose Kanorado (home meds). RN concerned about alcohol withdrawal, experiencing hallucinations. CIWA, banana bag and ativan prn ordered for alcohol withdrawal. Stephany Farley MD - 05/06/2017 7:05 PM CDT [facility] Hospitalist Progress Note Date of Service (when I saw the patient): 05/06/2017 Assessment & Plan Speedy Mcduffie is a 76 year old male who was brought in for evaluation of unresponsiveness. ?? 1. Altered mental status/Acute toxic encephalopathy Patient found by daughter (Raquel, AUTOMAT CAR ATTENDANT) after likely prolonged period of unresponsiveness and suspected aspiration. Airway was cleared, but patient was hypoxic in the 60s for what sounds like at least 20-40 minutes before oxygen was available. Patient responded to narcan and thus it was suspected that patient had an unintentional opioid overdose with worsening of renal function and taking scheduled morphine 15mg ER BID with Kanorado 7.5/325 1-1.5 tabs PRN q4-6 hours started in the past week. Also had been taking gabapentin and flexeril. - Patient started on narcan drip initially and this has since been stopped. - Appreciate studio producer recommendations. Had initially planned to transfer to step down this afternoon, but patient having episodes of bradycardia in 40s - 50s, with one strip noting a rate of 29. These seem to happen when patient is sleeping and are sinus in nature. Music Publicist agrees with keeping patient in the ICU [...] ?? 2. Suspected Aspiration PNA - Daughter (AUTOMAT CAR ATTENDANT) found patient with large amount of material [...] had been managed by his PMD and CYBER DEFENSE FORENSICS ANALYST was on Morphine 15 mg po BID (daughter reported that in the past he was confused with Oxycontin), Kanorado 7/325 mg 1 tab po q4-6 h; he is also on scheduled Gabapentin and prn Flexeril -and a recent admission to [facility] from 04/28-04/30 for severe lower back pain when tapering Prednisone was added. On prednisone 10mg daily at time of event with plan for 2 more days 10mg and then 3 days 5mg daily. - Holding meds initially. Avoiding narcotics. Will consult PT when more alert. ?? 6. H/o HTN - CYBER DEFENSE FORENSICS ANALYST on Metoprolol 50 mg po BID for HTN. - Holding now with episodic bradycardia. Will follow. - monitor BP - Metoprolol iv prn ordered ?? 7. Dyslipidemia - hold CYBER DEFENSE FORENSICS ANALYST Atorvastatin while he is npo ?? 8 [...] hypoxia. PT consulted. ?? Stephany Farley MD [phone] (P) Text page (7am to 6pm) Interval [...] 76 yo male found unresponsive, airlifted to [facility] for ongoing treatment of unitnentional overdose [...] in agreement with plan of care Yes [facility] TM 6 Clicks ?? 2016, Trustees of [facility], under license to [employer]. All rights reserved. 6 Clicks Short Forms Basic Mobility Inpatient Short Form [facility]??? 6 Clicks V.2 Basic Mobility Inpatient Short [...] 76 yo male found unresponsive, airlifted to [facility] for ongoing treatment of unitnentional overdose [...] in agreement with plan of care Yes [facility] [facility] 6 Clicks ?? 2016, Trustees of [facility], under license to [employer]. All rights reserved. 6 Clicks Short Forms Basic Mobility Inpatient Short Form [facility]??? 6 Clicks V.2 Basic Mobility Inpatient [...] Total Evaluation Time (Minutes) 10 Marie Zuñiga NETWORK SECURITY ENGINEER - 05/06/2017 1:30 PM CDT 05/06/17 0959 [...] aspiration of his vomit. Clinical Swallow Eval: [place] Thick Liquid Texture Trial Mode of Presentation, Salineno spoon;self-fed Volume of Salineno Presented 3 teaspoons Oral Phase, Salineno WFL Pharyngeal Phase, Salineno intact Clinical Swallow Eval: Puree Solid Texture [...] Irvin MD - 05/06/2017 9:51 AM CDT [facility] Critical Care Service Progress Note Date of Service: 05/06/2017 Assessment & Plan Speedy Mcduffie is a 76 year old male who was admitted on 05/05/2017 with altered mental status following a possible unintentional narcotic overdose. FOUNTAIN BRUSH ASSEMBLER: Alert, appropriate, oriented this AM. - Altered [...] FEN/GI: Abdomen benign. - NPO for now. NETWORK SECURITY ENGINEER evaluation to assess swallow, consider starting diet [...] Today - Stop naloxone infusion. - PT, NETWORK SECURITY ENGINEER. - Possible transfer from ICU. Interval History [...] Mccullough MD - 05/05/2017 5:34 PM CDT [facility] History and Physical Hospitalist Date of [...] BID, more recently (last week) started on [place] 7.5/325 mg 1 tab po q4-6h prn - he is also on scheduled Gabapentin and Flexeril prn - his daughter- who is a AUTOMAT CAR ATTENDANT does not think that he overdosed intentionally; [...] 141/81 - discussed with ICU attending; formal studio producer consult - continue BiPAP for now- wean [...] had been managed by his PMD and CYBER DEFENSE FORENSICS ANALYST was on Morphine 15 mg po BID (daughter reported that in the past he was confused with Oxycontin), Kanorado 7/325 mg 1 tab po q4-6 h; he is also on scheduled Gabapentin and prn Flexeril -and a recent admission to [facility] from 04/28-04/30 for severe lower back pain when tapering Prednisone was added - it seems that he was doing fine at home, walking with walker - now holding all narcotics, Gabapentin, Flexeril - may need to be seen by PT when he will be more awake 6. H/o HTN - CYBER DEFENSE FORENSICS ANALYST on Metoprolol 50 mg po BID- hold it for now given AMS and isolated low BP - monitor BP - Metoprolol iv prn ordered 7. Dyslipidemia - hold CYBER DEFENSE FORENSICS ANALYST Atorvastatin while he is npo 8 . [...] the time of my examination;she is a AUTOMAT CAR ATTENDANT at [employer]. History of Present Illness Speedy Mcduffie [...] time); more recently- he was started on [place] 7/325 mg 1 tab poq4-6 h; he is also on scheduled Gabapentin and prn Flexeril. He was recently admitted to [facility] from 04/28- 04/30/2017 for severe back [...] called 911; he was [facility]. As per report- he was given [...] vibration. His coordin ation is intact to [id number]. I did not his gait exam. Impression: [...] additional neurological questions. Arpita Nelson MD Document: [id number] REEDER\. Margaret Laguna MD - 05/08/2017 10:11 AM CDT [facility] Palliative Care Consultation Note Patient: Speedy [...] with any urgent needs. Margaret Laguna Pager: [phone] [facility] Inpatient Team Consult pager [phone] (M-F 8-4:30) After-hours Answering Service [phone] Palliative Clinic: [phone] Assessment Speedy Mcduffie is a 76 year old male with lower back pain 2/2 incomplete sacral fracture after a fall managed conservatively with opioids admitted 05/05 for suspected unintentional opioid overdose and aspiration. Course complicated by acute hypoxic respiratory failure, altered mental status, acute on CKD. Symptoms: Pain: didn't tolerate opioids throughout his treatment course (a little over a week CYBER DEFENSE FORENSICS ANALYST): felt somnolent. He doesn't recall making changes [...] done rapidly if he hasn't taken it CYBER DEFENSE FORENSICS ANALYST. Lidocaine patches didn't help in the past. Gets good relief with heat and ice, using heating pad now. I feel a trial of low-dose diclofenac with monitoring of his renal function would be a good option at this time. He is already on misoprostol CYBER DEFENSE FORENSICS ANALYST, which I assume was started with the [...] sleep last night, also received one 5/325 Kanorado about 90min prior to my visit. ROS: [...] magnesia daily prn, Senna-docusate prn - none CYBER DEFENSE FORENSICS ANALYST: MS Contine 15mg bid Hydrocodone/APAP 7.5/325 1-1.5 [...] reviewed: crea 1.24 (baseline) Margaret Laguna Pager: [phone] [facility] Inpatient Team Consult pager [phone] (M-F 8-4:30) After-hours Answering Service [phone] Palliative Clinic: [phone] Total time spent was 45 minutes, >50% of time was spent counseling and/or coordination of care regarding symptom assessment, disease understanding. Rolando Burrell MD - 05/07/2017 11:00 AM CDT [facility] Cardiology Consultation Date of Admission: 05/05/2017 [...] HDL, LDL, TRIG, CHOLHDLRATIO in the last 66834 hours. Recent Labs Lab 05/07/17 0450 05/06/17 [...] 9:21 AM CDTAssociated Order(s): CARDIOLOGY IP CONSULT [facility] Cardiology Consultation Date of Admission: 05/05/2017 [...] - 3 beers/day, question withdrawal symptoms (on [facility] protocol) 2) Sinus Pause - This AM few episodes of sinus pauses (2.5 - 3 seconds) 2) Altered Mental Status - [place] to be due to incidental opioid overdose [...] Sinus Bradycardia Kamari Jones PA-C 05/07/2017 Pager: [phone] Associated attestation - Hue Klein MD - [...] Irvin MD - 05/05/2017 6:24 PM CDT [facility] History and Physical/ Consult Critical Care Service Date of Admission: 05/05/2017 Date of Service: 05/05/17 Assessment & Plan Edjenniffer Mcduffie is a 76 year old male who presents with altered mental status. 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 Naloxone administered during transport improved his mental status transiently. The patient has a recent sacral fracture which has caused some agarmoojs-zs-nbyldwm pain. Past Medical History I have reviewed [...] NEG Ketones Urine Negative NEG mg/dL Specific [place] Urine 1.020 1.003 - 1.035 Blood Urine [...] - 05/05/2017 4:11 PM CDT at bedside- [facility], to discuss results with family. Aubrey Bautista [...] patient was brought by ambulance to a [facility] helicopter and then to the emergency department for evaluation because his other daughter is nurse in the ICU at [facility]. He was not brought to [facility] for evaluation because he was initially unresponsive. [...] Remove hardware foot Left lung surgical decortication [place] teeth Family History: History reviewed. No pertinent [...] wave abnormality Abnormal ECG Rate 79 bpm. NV interval 138. QRS duration 76. QT/QTc 376/431. [...] 05/05/2017 EMERGENCY DEPARTMENT Leesa Martinez MD 05/05/17 7979 documented in this encounter Miscellaneous Notes Provider Notification - Aubrey Morales RN - 05/12/2017 3:42 PM CDT Paged and spoke to Dr. Pleitez notified pharmacist from [place] pharmacy called with concern with counter indications with the d/c med sent. Bottler given phone number to Dr. Pleitez, she will contact pharmacy to verify. Phone number [phone] Plan of Care - Nai Santacruz, ALISHA - 05/12/2017 3:42 PM CDT Problem: Goal Outcome Summary Goal: Goal Outcome Summary Physical Therapy Discharge Summary Reason for therapy discharge: Discharged to home with home therapy. Progress towards therapy goal(s). See goals on Care Plan in [facility] electronic health record for goal details. [...] goal(s). See goals on Care Plan in [facility] electronic health record for goal details. [...] Goal Outcome Summary Goal: Goal Outcome Summary Pharmacy Innovation Assistant PT Patient plan for discharge: Home with [...] Goal Outcome Summary Goal: Goal Outcome Summary Pharmacy Innovation Assistant PT Patient plan for discharge: None stated [...] PM Plan of Care - Marie Zuñiga NETWORK SECURITY ENGINEER - 05/11/2017 10:13 AM CDT Problem: Goal Outcome Summary Goal: Goal Outcome Summary Pharmacy Innovation Assistant NETWORK SECURITY ENGINEER Patient plan for discharge: Patient would like [...] pt for OT session, pt busy with NETWORK SECURITY ENGINEER and eating breakfast on 1st attempt, 2nd [...] and then 379cc at 1210 and 476cc [id number]. D/c pending, currently recommending TCU. Nrsg will continue to monitor. Plan of Care - Marie Zuñiga SLP - 05/10/2017 1:50 PM CDT Problem: Goal Outcome Summary Goal: Goal Outcome Summary Pharmacy Innovation Assistant NETWORK SECURITY ENGINEER Patient plan for discharge: Patient would like [...] declines/aspiration signs are observed. Plan to continue NETWORK SECURITY ENGINEER swallow Tx For one mores session to [...] Goal Outcome Summary Goal: Goal Outcome Summary Pharmacy Innovation Assistant PT Patient plan for discharge: Pt hopes [...] Goal Outcome Summary Goal: Goal Outcome Summary Pharmacy Innovation Assistant OT Patient plan for discharge: home with [...] Outcome: Improving Altered mental status. PT, OT, NETWORK SECURITY ENGINEER. A/Ox4, forgetful, acute confusion episodes upon waking [...] Goal Outcome Summary Goal: Goal Outcome Summary Pharmacy Innovation Assistant NETWORK SECURITY ENGINEER Patient plan for discharge: Did not state [...] declines/aspiration signs are observed. Plan to continue NETWORK SECURITY ENGINEER swallow Tx short term to insure diet tolerance and train strategies. Barriers to return to prior living situation: Level of assist per OT/PT needs Recommendations for discharge: Per OT/PT needs; No NETWORK SECURITY ENGINEER needs likely indicated after discharge Rationale for recommendations: Anticipate NETWORK SECURITY ENGINEER swallow Tx goal to be be met [...] Goal Outcome Summary Goal: Goal Outcome Summary NETWORK SECURITY ENGINEER: Attempted to see patient at breakfast for [...] Pt had assist with dressing, and IADLs. Pharmacy Innovation Assistant OT Patient plan for discharge: Home with [...] 05/08/2017 11:15 PM CDT Page to MD extrusion die repair manager, pt still tachy in high 115-150s - occasionally will drop below 100 but then tachycardia resumes. Given all PRN options. Orders for meds rec'd/updated in DEC. 0030 Bedside RN went togive meds and HR slowed, sustained into 70's long enough to capture strip. Tele strip printed by this scenario writer, pt appears to be in a-flutter. Sent to CCU to verify. 0045 Re-page to MD extrusion die repair manager regarding underlying rhythm. STAT 12 lead [...] to hospitalist, PRN Metoprolol ordered and given. Bottler also instructed to give scheduled BP meds. [...] Goal Outcome Summary Goal: Goal Outcome Summary Pharmacy Innovation Assistant NETWORK SECURITY ENGINEER Patient plan for discharge: Did not state [...] day without symptoms, bp high apresoline iv [id number] without much improvement. notified at 1300 hospitalist [...] life. Hosptalist ordered to give low dose Kanorado and stat head CT. Notified primary nurse. Plan of Care - Kassy Chatman SLP - 05/07/2017 2:50 PM CDT Problem: Goal Outcome Summary Goal: Goal Outcome Summary Pharmacy Innovation Assistant NETWORK SECURITY ENGINEER Patient plan for discharge: Did not state [...] Goal Outcome Summary Goal: Goal Outcome Summary NETWORK SECURITY ENGINEER: Attempted to see patient for swallow treatment [...] metoprolol per prn order after discussing with studio producer. Pt then had periods of tachy/dani. See [...] Goal Outcome Summary Goal: Goal Outcome Summary Pharmacy Innovation Assistant PT PT: Evaluation completed, treatment initiated. 76 [...] Goal Outcome Summary Goal: Goal Outcome Summary Pharmacy Innovation Assistant NETWORK SECURITY ENGINEER Patient plan for discharge: Undetermined Current status: [...] his respiratory status hold the diet. 3. NETWORK SECURITY ENGINEER will f/u for diet tolerance on 05/07/17. [...] intermittently to vigorous sternal rub. MD chávez, studio producer consult. [place] reassess at 1999 for intubation. CV: SR, pressure stable. Pulm: LS coarse, BIPAP. GI/: Abd distended. Adequate clear urine output. Skin: intact Lines: 2 periph iv Plan: plan to reassess arousal level and ABG at 1999 Pharmacy-Admission Medication History - Victoriano Villa RPH - 05/05/2017 4:44 PM CDT Admission medication history interview status for the 05/05/2017 admission is complete. See [facility] admission navigator for prior to admission medications Medication history source reliability:Good Actions taken by pharmacist (provider contacted, etc):None Additional medication history information not noted on CYBER DEFENSE FORENSICS ANALYST med list : ----Pt unresponsive. Medication bottles [...] with Referral Routine Paroxysmal atrial Expected : Music Therapy Specialist fibrillation (H) 05/20 (Approximate), Expires: 05/11/2018 Home Care PT Referral for Referral Routine Enceph alopathy Ordered: Hospital Discharge Aspiration pneumonia, 05/12/2017 unspecified aspiration pneumonia type, unspecified laterality, unspecified part of lung (H) Home Care OT Referral for Referral Routine Enceph alopathy Ordered: Hospital Discharge Aspiration pneumonia, 05/12/2017 unspecified aspiration pneumonia type, unspecified laterality, unspecified part of lung (H) Home Care NETWORK SECURITY ENGINEER Referral for Referral Routine Encep halopathy Ordered: [...] Time Signature Sodium 144 133 - 144 [place] mmol/L [facility] Potassium 4.0 3.4 - 5.3 [place] mmol/L [facility] Chloride 112 (H) 94 - 109 [place] mmol/L [facility] Carbon Dioxide 22 20 - 32 [place] mmol/L [facility] Anion Gap 10 3 - 14 [place] mmol/L [facility] Glucose 111 (H) 70 - 99 [place] mg/dL [facility] Urea Nitrogen 25 7 - 30 [place] mg/dL [facility] Creatinine 1.55 (H) 0.66 - [place] 1.25 mg/dL [facility] GFR Estimate 44 (L) >60 [place] mL/min/1.[address] Comment: Non GFR Calc GFR Estimate If Black 53 (L) >60 mL/min/1.7m2 F [facility] Comment: GFR Calc Calcium 8.1 (L) 8.5 - 10.1 mg/dL [facility] Specimen Anatomical Collection Method Collection Time Receive d Time (Source) Location / / Volume Laterality Blood specimen 05/12/2017 8:52 AM 017 9:02 (specimen) CDT AM CDT Nikhil Rodriguez DO LAB - BLOOD ORDERABLES Performing Organization Address City/State/ZIP Code Phon e Number M [facility] [address] [address] [facility] [address] [address], [place] [phone] Hemoglobin A1c (05/11/2017 11:37 AM CDT) athologist Signature Hemoglobin A1C 5.6 4.3 - 6.0 [facility] Specimen Anatomical Collection Method Collection Time Receive d Time (Source) Location / / Volume Laterality Blood specimen 05/11/2017 11:37 7 (specimen) AM CDT 11:57 AM CDT Natasha Jen Counters FUSING MACHINE OPERATOR PENSIONS RETIREMENT PLAN SPECIALIST LAB - BLOOD ORDERABLES Performing Organization Address City/State/ZIP Code Phon e Number [facility] [address] [place] [address] [facility] [address] [place] [address], [place] [phone] Vitamin B12 (05/11/2017 11:37 AM CDT) athologist Signature Vitamin B12 800 193 - 986 [facility] pg/mL [facility] Specimen Anatomical Collection Method Collection Time Receive d Time (Source) Location / / Volume Laterality Blood specimen 05/11/2017 11:37 7 (specimen) AM CDT 11:57 AM CDT Natasha Jen Counters FUSING MACHINE OPERATOR PENSIONS RETIREMENT PLAN SPECIALIST LAB - BLOOD ORDERABLES Performing Organization Address City/State/ZIP Code Phon e Number [facility] [address] [place] [address] [facility] Vitamin D Deficiency (05/11/2017 11:37 AM CDT) athologist Signature Vitamin D 26 20 - 75 [facility] Deficiency ug/L [facility] [place] Comment: Season, race, dietary intake, and treatm ent affect the concentration of 73-ecrqctc-Eiwandt D. Values may decrea se during winter [...] CDT 11:57 AM CDT Natasha Jen Counters FUSING MACHINE OPERATOR PENSIONS RETIREMENT PLAN SPECIALIST LAB - BLOOD ORDERABLES Performing Organization Address City/State/ZIP Code Phon e Number [facility] [address] [place] [address] [facility] (ABNORMAL) Lipid Profile (05/11/2017 11:37 AM CDT) P athologist Signature Cholesterol 128 <200 mg/dL [facility] Triglycerides 164 (H) <150 mg/dL [facility] Comment: Borderline high: ??150-199 mg/dl High: ? 200-499 mg/dl Very high: ? >499 mg/dl HDL Cholesterol 44 >39 mg/dL [facility] LDL Cholesterol Calculated 51 <100 mg/dL [facility] Comment: Desirable: <100 mg/dl Non HDL Cholesterol 84 <130 mg/dL [facility] Specimen Anatomical Collection Method Collection Time Receive d Time (Source) Location / / Volume Laterality Blood specimen 05/11/2017 11:37 7 (specimen) AM CDT 11:57 AM CDT Natasha Li Counters TERESITA ZIEGLER LAB - BLOOD ORDERABLES Performing Organization Address City/State/ZIP Code Phon e Number M [facility] [address] [address] [phone] [facility] [address] [address], [facility] [phone] Platelet count (05/11/2017 7:17 AM CDT) P athologist Signature Platelet Count 169 150 - 450 [place] 10e9/L [facility] Specimen Anatomical Collection Method Collection Time Receive d Time (Source) Location / / Volume Laterality Blood specimen 05/11/2017 7:17 AM 017 7:30 (specimen) CDT AM CDT Stephany Farley MD LAB - BLOOD ORDERABLES Performing Organization Address City/State/ZIP Code Phon e Number M [facility] [address] [address] [phone] [facility] [address] [place] [address], [place] [phone] (ABNORMAL) Basic metabolic panel (05/11/2017 7:17 AM CDT) Analysis Performed At [facility] logist Time Signature Sodium 144 133 - 144 [place] mmol/L [facility] Potassium 3.7 3.4 - 5.3 [place] mmol/L [facility] Chloride 112 (H) 94 - 109 [place] mmol/L [facility] Carbon Dioxide 23 20 - 32 [place] mmol/L [facility] Anion Gap 9 3 - 14 [place] mmol/L [facility] Glucose 94 70 - 99 [place] mg/dL [facility] Urea Nitrogen 25 7 - 30 [place] mg/dL [facility] Creatinine 1.56 (H) 0.66 - [place] 1.25 mg/dL [facility] GFR Estimate 44 (L) >60 [place] mL/min/1.[address] Comment: Non GFR Calc GFR Estimate If Black 53 (L) >60 mL/min/1.7m2 F [facility] Comment: GFR Calc Calcium 8.5 8.5 - 10.1 mg/dL [facility] Specimen Anatomical Collection Method Collection Time Receive d Time (Source) Location / / Volume Laterality Blood specimen 05/11/2017 7:17 AM 017 7:30 (specimen) CDT AM CDT Isra Greene MD LAB - BLOOD ORDERABLES Performing Organization Address City/State/ZIP Code Phon e Number M [facility] [address] [place] [address] [phone] [facility] [address] [address], [place] [phone] (ABNORMAL) CBC with platelets differential (05/10/2017 7:43 AM CDT) [facility] gist Method Time Signature WBC 7.7 4.0 - [facility] 11.0 [facility] 10e9/L [facility] RBC Count 3.89 (L) 4.4 - 5.9 [place] 10e12/L [facility] Hemoglobin 12.7 (L) 13.3 - [place] 17.7 g/dL [facility] Hematocrit 37.0 (L) 40.0 - [place] 53.0 % [facility] MCV 95 78 - 100 [place] fl [facility] MCH 32.6 26.5 - [place] 33.0 pg [facility] MCHC 34.3 31.5 - [place] 36.5 g/dL [facility] RDW 13.3 10.0 - [place] 15.0 % [facility] Platelet Count 168 150 - [address] Diff Method Automated [place] Method [facility] % Neutrophils 68.9 % [facility] % Lymphocytes 17.9 % [facility] % Monocytes 9.7 % [facility] % Eosinophils 2.6 % [facility] % Basophils 0.3 % [facility] % Immature 0.6 % [place] Granulocytes [facility] Nucleated RBCs 0 0 /100 [facility] Absolute 5.3 1.6 - 8.3 [place] Neutrophil 10e9/L [facility] Absolute 1.4 0.8 - 5.3 [place] Lymphocytes 10e9/[facility] Absolute 0.8 0.0 - 1.3 [place] Monocytes 10e9/[facility] Absolute 0.2 0.0 - 0.7 [place] Eosinophils 10e9/L [facility] Absolute 0.0 0.0 - 0.2 [place] Basophils 10e9/[facility] Abs Immature 0.1 0 - 0.4 [place] Granulocytes [address] [place] [address] Absolute 0.0 [place] Nucleated RBC [facility] Specimen Anatomical Collection Method Collection Time Receive d Time (Source) Location / / Volume Laterality Blood specimen 05/10/2017 7:43 AM 017 8:05 (specimen) CDT AM CDT Isra Greene MD LAB - BLOOD ORDERABLES Performing Organization Address City/State/ZIP Code Phon e Number M [facility] [address] [address] [facility] [address] [address], [place] [phone] (ABNORMAL) Basic metabolic panel (05/10/2017 7:43 AM CDT) Analysis Performed At Patho logist Time Signature Sodium 144 133 - 144 [place] mmol/L [facility] Potassium 3.5 3.4 - 5.3 [place] mmol/L [facility] Chloride 111 (H) 94 - 109 [place] mmol/L [facility] Carbon Dioxide 23 20 - 32 [place] mmol/L [facility] Anion Gap 10 3 - 14 [place] mmol/L [facility] Glucose 97 70 - 99 [place] mg/dL [facility] Urea Nitrogen 24 7 - 30 [place] mg/dL [facility] Creatinine 1.49 (H) 0.66 - [place] 1.25 mg/dL [facility] GFR Estimate 46 (L) >60 [place] mL/min/1.[address] Comment: Non GFR Calc GFR Estimate If Black 56 (L) >60 mL/min/1.7m2 F [facility] Comment: GFR Calc Calcium 8.6 8.5 - 10.1 mg/dL [facility] Specimen Anatomical Collection Method Collection Time Receive d Time (Source) Location / / Volume Laterality Blood specimen 05/10/2017 7:43 AM 017 8:05 (specimen) CDT AM CDT Isra Greene MD LAB - BLOOD ORDERABLES Performing Organization Address City/State/ZIP Code Phon e Number M [facility] [address] [place] [address] [phone] [facility] [address] [place] [address], U [phone] MR Brain w/o & w Contrast (05/09/2017 [...] with platelets differential (05/09/2017 7:27 AM CDT) [facility] Method Time Signature WBC 9.5 4.0 - [facility] 11.0 [facility] RBC Count 3.94 (L) 4.4 - 5.9 [place] 10e12/L [facility] Hemoglobin 12.9 (L) 13.3 - [facility] 17.7 g/dL [facility] Hematocrit 37.0 (L) 40.0 - [place] 53.0 % [facility] MCV 94 78 - 100 [place] fl [facility] MCH 32.7 26.5 - [place] 33.0 pg [facility] MCHC 34.9 31.5 - [place] 36.5 g/dL [facility] RDW 13.1 10.0 - [place] 15.0 % [facility] [facility] Platelet Count 185 150 - [address] Diff Method Automated [place] Method [facility] % Neutrophils 74.3 % [facility] % Lymphocytes 13.7 % [facility] % Monocytes 9.3 % [facility] % Eosinophils 2.2 % [facility] % Basophils 0.1 % [facility] % Immature 0.4 % [place] Granulocytes [facility] Nucleated RBCs 0 0 /100 [facility] Absolute 7.1 1.6 - 8.3 [place] Neutrophil 10e9/L [facility] Absolute 1.3 0.8 - 5.3 [place] Lymphocytes 10e9/[facility] Absolute 0.9 0.0 - 1.3 [place] Monocytes 10e9/L [facility] Absolute 0.2 0.0 - 0.7 [place] Eosinophils 10e9/[facility] Absolute 0.0 0.0 - 0.2 [place] Basophils 10e9/[facility] Abs Immature 0.0 0 - 0.4 [place] Granulocytes [facility] Absolute 0.0 [place] Nucleated RBC [facility] Specimen Anatomical Collection Method Collection Time Receive d Time (Source) Location / / Volume Laterality Blood specimen 05/09/2017 7:27 AM 017 7:40 (specimen) CDT AM CDT Stephany Farley MD LAB - BLOOD ORDERABLES Performing Organization Address City/State/ZIP Code Phon e Number M [facility] [address] [place] [address] [facility] [address] [address], [place] [phone] (ABNORMAL) Basic metabolic panel (05/09/2017 7:27 AM CDT) Analysis Performed At [facility] Time Signature Sodium 142 133 - 144 [place] mmol/L [facility] Potassium 3.5 3.4 - 5.3 [place] mmol/L [facility] Chloride 110 (H) 94 - 109 [place] mmol/L [facility] Carbon Dioxide 21 20 - 32 [place] mmol/L [facility] Anion Gap 11 3 - 14 [place] mmol/L [facility] Glucose 105 (H) 70 - 99 [place] mg/dL [facility] Urea Nitrogen 22 7 - 30 [place] mg/dL [facility] Creatinine 1.44 (H) 0.66 - [place] 1.25 mg/dL [facility] GFR Estimate 48 (L) >60 [place] mL/min/1.[address] Comment: Non GFR Calc GFR Estimate If Black 58 (L) >60 mL/min/1.7m2 F [facility] Comment: GFR Calc Calcium 9.1 8.5 - 10.1 mg/dL [facility] Specimen Anatomical Collection Method Collection Time Receive d Time (Source) Location / / Volume Laterality Blood specimen 05/09/2017 7:27 AM 017 7:40 (specimen) CDT AM CDT Stephany Farley MD LAB - BLOOD ORDERABLES Performing Organization Address City/State/ZIP Code Phon e Number M [facility] [address] [address] [facility] [address] [address], [place] [phone] EKG 12-lead, tracing only (05/09/2017 12:59 AM CDT) Patholo gist Method Time Signature Interpretation ECG Click View RADIOLOGY Image link RESULTS to view waveform and result Specimen (Source) Anatomical Collection Method Collection Time Re ceived Time Location / / Volume Laterality 05/09/2017 12:59 AM CDT Mickey Smith MD ECG ORDERABLES Performing Organization Address City/[facility]/ZIP Code Phon e Number RADIOLOGY RESULTS EKG 12-lead, tracing only (05/08/2017 9:00 PM CDT) Patholo gist Method Time Signature Interpretation ECG Click View RADIOLOGY Image link RESULTS to view waveform and result Specimen (Source) Anatomical Collection Method Collection Time Re ceived Time Location / / Volume Laterality 05/08/2017 9:00 PM CDT Stephany Farley MD ECG ORDERABLES Performing Organization Address City/[facility]/ZIP Code Phon e Number RADIOLOGY RESULTS Lactic acid level STAT (05/08/2017 8:45 PM CDT) P athologist Signature Lactic Acid 1.3 0.7 - 2.1 [place] mmol/L [facility] Specimen Anatomical Collection Method Collection Time Receive d Time (Source) Location / / Volume Laterality Blood specimen 05/08/2017 8:45 PM 017 8:58 (specimen) CDT PM CDT Stephany Farley MD LAB - BLOOD ORDERABLES Performing Organization Address [facility] Phon e Number [facility] [address] [address] [facility] [address] [address], [place] [phone] (ABNORMAL) N-terminal Pro BNP Inpatient (AM Draw) (05/08/2017 5:00 AM CDT) Analysis Performed At Patho logist Time Signature N-Terminal Pro 2,947 (H) 0 - 900 [place] BNP Inpatient pg/mL [facility] Comment: Reference range shown and results [...] [facility] [address] [address] [phone] [facility] [address] [address], [facility] [phone] (ABNORMAL) CBC with platelets differential (05/08/2017 5:00 AM CDT) [facility] gist Method Time Signature WBC 12.7 (H) 4.0 - [place] 11.0 [facility] 10e9/L [facility] RBC Count 4.00 (L) 4.4 - 5.9 [place] 10e12/L [facility] Hemoglobin 13.0 (L) 13.3 - [place] 17.7 g/dL [facility] Hematocrit 38.3 (L) 40.0 - [place] 53.0 % [facility] MCV 96 78 - 100 [facility] MCH 32.5 26.5 - [place] 33.0 pg [facility] MCHC 33.9 31.5 - [place] 36.5 g/dL [facility] RDW 13.1 10.0 - [place] 15.0 % [facility] Platelet Count 162 150 - 450 [place] 10e9/L [facility] Diff Method Automated [facility] % Neutrophils 82.5 % [facility] % Lymphocytes 8.9 % [facility] % Monocytes 6.9 % [facility] % Eosinophils 1.2 % [facility] % Basophils 0.1 % [facility] % Immature 0.4 % [place] Granulocytes [facility] Nucleated RBCs 0 0 /100 [facility] Absolute 10.5 (H) 1.6 - 8.3 [place] Neutrophil 10e9/L [facility] Absolute 1.1 0.8 - 5.3 [place] Lymphocytes 10e9/L [facility] Absolute 0.9 0.0 - 1.3 [place] Monocytes 10e9/L [facility] Absolute 0.2 0.0 - 0.7 [place] Eosinophils 10e9/L [facility] Absolute 0.0 0.0 - 0.2 [place] Basophils 10e9/L [facility] Abs Immature 0.1 0 - 0.4 [place] Granulocytes 10e9/L [facility] Absolute 0.0 [place] Nucleated RBC [facility] Specimen Anatomical Collection Method Collection Time Receive d Time (Source) Location / / Volume Laterality Blood specimen 05/08/2017 5:00 AM 017 5:06 (specimen) CDT AM CDT Stephany Farley MD LAB - BLOOD ORDERABLES Performing Organization Address City/State/ZIP Code Phon e Number M [facility] [address] [address] [phone] [facility] [address] [address], [facility] [phone] (ABNORMAL) Basic metabolic panel (05/08/2017 5:00 AM CDT) athologist Signature Sodium 140 133 - 144 [place] mmol/L [facility] Potassium 4.1 3.4 - 5.3 [place] mmol/L [facility] Chloride 109 94 - 109 [place] mmol/L [facility] Carbon Dioxide 20 20 - 32 [place] mmol/L [facility] Anion Gap 11 3 - 14 [place] mmol/L [facility] Glucose 106 (H) 70 - 99 [place] mg/dL [facility] Urea Nitrogen 19 7 - 30 [place] mg/dL [facility] Creatinine 1.24 0.66 - [place] 1.25 mg/dL [facility] GFR Estimate 57 (L) >60 [place] mL/min/1.[address] Comment: Non GFR Calc GFR Estimate If Black 69 >60 mL/min/1.7m2 F [facility] Comment: GFR Calc Calcium 8.8 8.5 - 10.1 mg/dL [facility] Specimen Anatomical Collection Method Collection Time Receive d Time (Source) Location / / Volume Laterality Blood specimen 05/08/2017 5:00 AM 017 5:06 (specimen) CDT AM CDT Stephany Farley MD LAB - BLOOD ORDERABLES Performing Organization Address City/State/ZIP Code Phon e Number [facility] [address] [place] [address] [facility] [address] [place] [address], [place] [phone] CT Head w/o Contrast (05/07/2017 5:04 PM [...] 4:25 CDT PM CDT Miladys Mccullough MD [facility] POCT Performing Organization Address City/State/ZIP Code Phon e Number FV POINT OF CARE TEST, GLUCOSE POINT OF CARE TEST, GLUCOSE ECHO COMPLETE WITH OPTISON (05/07/2017 11:36 AM CDT) Anatomical Region Laterality Modality Echocardiography Specimen (Source) Anatomical Collection Method Collection Time Re ceived Time Location / / Volume Laterality 05/07/2017 10:53 AM CDT Narrative 05/07/2017 1:17 PM CDT [id number]^RUSTY^KAMARI^ [facility] Echocardiography Laboratory [address] [place] [id number] Name: SPEEDY MCDUFFIE : 1940 Study Date: 05/07/2017 10:53 AM Age: 76 yrs Gender: Male Patient Location: [facility] Reason For Study: Afib Ordering Physician: [...] note might be different from the original. [id number]^RUSTY^KAMARI^ [facility] Echocardiography Laboratory [address] [place] [id number] Name: SPEEDY MCDUFFIE : 1940 Study Date: 05/07/2017 10:53 AM Age: 76 yrs Gender: Male Patient Location: [facility] Reason For Study: Afib Ordering Physician: TWAN JONES Referring Physician: Celina Coley Performed By: Connie Nolasoc RDCS BSA: 2.1 m2 Height: 67 in [...] (05/07/2017 4:50 AM CDT) Analysis Performed At [facility] Time Signature Bilirubin Direct 0.2 0.0 - 0.2 [place] mg/dL [facility] Bilirubin Total 0.5 0.2 - 1.3 [place] mg/dL [facility] Albumin 2.6 (L) 3.4 - 5.0 [place] g/dL [facility] Protein Total 6.2 (L) 6.8 - 8.8 [place] g/dL [facility] Alkaline 156 (H) 40 - 150 [place] Phosphatase U/L [facility] ALT 34 0 - 70 U/L [facility] AST 46 (H) 0 - 45 U/L [facility] Specimen Anatomical Collection Method Collection Time Receive d Time (Source) Location / / Volume Laterality Blood specimen 05/07/2017 4:50 AM 017 4:55 (specimen) CDT AM CDT Stephany Farley MD LAB - BLOOD ORDERABLES Performing Organization Address City/State/ZIP Code Phon e Number [facility] [address] [address] [facility] [address] [address], U [phone] (ABNORMAL) Basic metabolic panel (05/07/2017 4:50 AM CDT) Analysis Performed At [facility] Signature Sodium 143 133 - 144 [place] mmol/L [facility] Potassium 4.8 3.4 - 5.3 [place] mmol/L [facility] Chloride 114 (H) 94 - 109 [place] mmol/L [facility] Carbon Dioxide 20 20 - 32 [place] mmol/L [facility] Anion Gap 9 3 - 14 [place] mmol/L [facility] Glucose 130 (H) 70 - 99 [place] mg/dL [facility] Urea Nitrogen 25 7 - 30 [place] mg/dL [facility] Creatinine 1.52 (H) 0.66 - [place] 1.25 mg/dL [facility] GFR Estimate 45 (L) >60 [place] mL/min/1.[address] Comment: Non GFR Calc GFR Estimate If Black 54 (L) >60 mL/min/1.7m2 F [facility] Comment: GFR Calc Calcium 8.8 8.5 - 10.1 mg/dL [facility] Specimen Anatomical Collection Method Collection Time Receive d Time (Source) Location / / Volume Laterality Blood specimen 05/07/2017 4:50 AM 017 4:55 (specimen) CDT AM CDT Stephany Farley MD LAB - BLOOD ORDERABLES Performing Organization Address City/State/ZIP Code Phon e Number [facility] [address] [address] [facility] [address] [address], [facility] [phone] Magnesium (05/07/2017 4:50 AM CDT) P athologist Signature Magnesium 2.3 1.6 - 2.3 [place] mg/dL [facility] Specimen Anatomical Collection Method Collection Time Receive d Time (Source) Location / / Volume Laterality Blood specimen 05/07/2017 4:50 AM 017 4:55 (specimen) CDT AM CDT Stephany Farley MD LAB - BLOOD ORDERABLES Performing Organization Address City/State/ZIP Code Phon e Number [facility] [address] [address] [place] [address] [place] [address], [place] [phone] Phosphorus (05/07/2017 4:50 AM CDT) P athologist Signature Phosphorus 3.3 2.5 - 4.5 [place] mg/dL [facility] Specimen Anatomical Collection Method Collection Time Receive d Time (Source) Location / / Volume Laterality Blood specimen 05/07/2017 4:50 AM 017 4:55 (specimen) CDT AM CDT Stephany Farley MD LAB - BLOOD ORDERABLES Performing Organization Address City/State/ZIP Code Phon e Number [facility] [address] [place] [address] [facility] [address] [place] [address], [place] [phone] (ABNORMAL) CBC with platelets differential (05/07/2017 4:50 AM CDT) Component Value Ref Test Analysis Performed At Patholo gist Range Method Time Signature WBC 11.9 (H) 4.0 - [place] 11.0 [facility] 10e9/L [facility] RBC Count 3.79 (L) 4.4 - [place] 5.9 [facility] 10e12/L [facility] Hemoglobin 12.5 (L) 13.3 - [place] 17.7 [facility] g/dL [facility] Hematocrit 37.5 (L) 40.0 - [place] 53.0 % [facility] MCV 99 78 - 100 [place] fl [facility] MCH 33.0 26.5 - [place] 33.0 pg [facility] MCHC 33.3 31.5 - [place] 36.5 [facility] g/dL [facility] RDW 13.5 10.0 - [place] 15.0 % [facility] Platelet Count 150 150 - [place] 450 [facility] 10e9/L [facility] Diff Method Manual [place] Differential [facility] % Neutrophils 92.0 % [facility] % Lymphocytes 3.0 % [facility] % Monocytes 5.0 % [facility] % Eosinophils 0.0 % [facility] % Basophils 0.0 % [facility] Absolute 10.9 (H) 1.6 - [place] Neutrophil [address] Absolute 0.4 (L) 0.8 - [place] Lymphocytes 5.[address] Absolute 0.6 0.0 - [place] Monocytes 1.3 [facility] 10e9[facility] Absolute 0.0 0.0 - [place] Eosinophils [address] Absolute 0.0 0.0 - [place] Basophils 0.[address] RBC Morphology Normal [facility] Platelet Confirming [place] Estimate automated cell [facility] Specimen Anatomical Collection Method Collection Time Receive d Time (Source) Location / / Volume Laterality Blood specimen 05/07/2017 4:50 AM 017 4:55 (specimen) CDT AM CDT Stephany Farley MD LAB - BLOOD ORDERABLES Performing Organization Address City/State/ZIP Code Phon e Number [facility] [address] [place] [address] [facility] [address] [place] [address], [place] [phone] Calcium (05/06/2017 5:18 PM CDT) P athologist Signature Calcium 8.6 8.5 - 10.1 [place] mg/dL [facility] Specimen Anatomical Collection Method Collection Time Receive d Time (Source) Location / / Volume Laterality Blood specimen 05/06/2017 5:18 PM 017 5:23 (specimen) CDT PM CDT Jaswinder Goins MD LAB - BLOOD ORDERABLES Performing Organization Address City/State/ZIP Code Phon e Number [facility] [address] [place] [address] [facility] [address] [place] [address], [place] [phone] Magnesium (1200) (05/06/2017 5:18 PM CDT) P athologist Signature Magnesium 1.9 1.6 - 2.3 [place] mg/dL [facility] Specimen Anatomical Collection Method Collection Time Receive d Time (Source) Location / / Volume Laterality Blood specimen 05/06/2017 5:18 PM 017 5:23 (specimen) CDT PM CDT Jaswinder Goins MD LAB - BLOOD ORDERABLES Performing Organization Address City/State/ZIP Code Phon e Number [facility] [address] [place] [address] [facility] [address] [place] [address], [place] [phone] EKG 12-lead, tracing only (05/06/2017 5:08 PM CDT) Patholo gist Method Time Signature Interpretation ECG Click View RADIOLOGY Image link RESULTS to view waveform and result Specimen (Source) Anatomical Collection Method Collection Time Re ceived Time Location / / Volume Laterality 05/06/2017 5:08 PM CDT Jaswinder Goins MD ECG ORDERABLES Performing Organization Address City/[facility]/ZIP Code Phon e Number RADIOLOGY RESULTS (ABNORMAL) CBC with platelets (05/06/2017 4:45 AM CDT) Analysis [facility] At [facility] Time Signature WBC 14.4 (H) 4.0 - 11.0 [place] 10e9/L [facility] RBC Count 3.85 (L) 4.4 - 5.9 [place] 10e12/L [facility] Hemoglobin 12.5 (L) 13.3 - [place] 17.7 g/dL [facility] Hematocrit 38.3 (L) 40.0 - [place] 53.0 % [facility] MCV 100 78 - 100 [place] fl [facility] MCH 32.5 26.5 - [place] 33.0 pg [facility] MCHC 32.6 31.5 - [place] 36.5 g/dL [facility] RDW 13.3 10.0 - [place] 15.0 % [facility] Platelet Count 135 (L) 150 - 450 [place] 10e9/L [facility] Specimen Anatomical Collection Method Collection Time Receive d Time (Source) Location / / Volume Laterality Blood specimen 05/06/2017 4:45 AM 017 4:54 (specimen) CDT AM CDT Miladys Mccullough MD LAB - BLOOD ORDERABLES Performing Organization Address City/State/ZIP Code Phon e Number [facility] [address] [address] [facility] [address] [place] [address], [place] [phone] (ABNORMAL) Hepatic panel (05/06/2017 4:45 AM CDT) Analysis Performed At [facility] Time Signature Bilirubin Direct 0.2 0.0 - 0.2 [place] mg/dL [facility] Bilirubin Total 0.6 0.2 - 1.3 [place] mg/dL [facility] Albumin 2.6 (L) 3.4 - 5.0 [place] g/dL [facility] Protein Total 6.0 (L) 6.8 - 8.8 [place] g/dL [facility] Alkaline 144 40 - 150 [place] Phosphatase U/L [facility] ALT 33 0 - 70 U/L [facility] AST 57 (H) 0 - 45 U/L [facility] Specimen Anatomical Collection Method Collection Time Receive d Time (Source) Location / / Volume Laterality Blood specimen 05/06/2017 4:45 AM 017 4:54 (specimen) CDT AM CDT Miladys Mccullough MD LAB - BLOOD ORDERABLES Performing Organization Address City/State/ZIP Code Phon e Number [facility] [address] [address] [facility] [address] [place] [address], [place] [phone] (ABNORMAL) Basic metabolic panel (05/06/2017 4:45 AM CDT) Analysis Performed At [facility] Signature Sodium 143 133 - 144 [place] mmol/L [facility] Potassium 4.5 3.4 - 5.3 [place] mmol/L [facility] Chloride 115 (H) 94 - 109 [place] mmol/L [facility] Carbon Dioxide 20 20 - 32 [place] mmol/L [facility] Anion Gap 8 3 - 14 [place] mmol/L [facility] Glucose 129 (H) 70 - 99 [place] mg/dL [facility] Urea Nitrogen 39 (H) 7 - 30 [place] mg/dL [facility] Creatinine 1.79 (H) 0.66 - [place] 1.25 mg/dL [facility] GFR Estimate 37 (L) >60 [place] mL/min/1.[address] Comment: Non GFR Calc GFR Estimate If Black 45 (L) >60 mL/min/1.7m2 F [facility] Comment: GFR Calc Calcium 7.8 (L) 8.5 - 10.1 mg/dL [facility] Specimen Anatomical Collection Method Collection Time Receive d Time (Source) Location / / Volume Laterality Blood specimen 05/06/2017 4:45 AM 017 4:54 (specimen) CDT AM CDT Miladys Mccullough MD LAB - BLOOD ORDERABLES Performing Organization Address City/State/ZIP Code Phon e Number [facility] [address] [place] [address] [facility] [address] [place] [address], [facility] [phone] (ABNORMAL) Glucose by meter (05/06/2017 4:17 AM [...] (05/05/2017 10:35 PM CDT) Analysis Performed At [facility] logist Time Signature Sodium 144 133 - 144 [place] mmol/L [facility] Potassium 5.0 3.4 - 5.3 [place] mmol/L [facility] Chloride 113 (H) 94 - 109 [place] mmol/L [facility] Carbon Dioxide 21 20 - 32 [place] mmol/L [facility] Anion Gap 10 3 - 14 [place] mmol/L [facility] Glucose 148 (H) 70 - 99 [place] mg/dL [facility] Urea Nitrogen 46 (H) 7 - 30 [place] mg/dL [facility] Creatinine 1.95 (H) 0.66 - [place] 1.25 mg/dL [facility] GFR Estimate 34 (L) >60 [place] mL/min/1.[address] Comment: Non GFR Calc GFR Estimate If Black 41 (L) >60 mL/min/1.7m2 F [facility] Comment: GFR Calc Calcium 7.8 (L) 8.5 - 10.1 mg/dL [facility] Specimen Anatomical Collection Method Collection Time Receive d Time (Source) Location / / Volume Laterality Blood specimen 05/05/2017 10:35 7 (specimen) PM CDT 10:46 PM CDT Miladys Mccullough MD LAB - BLOOD ORDERABLES Performing Organization Address City/State/ZIP Code Phon e Number [facility] [address] [place] [phone] [facility] [address] [place] [address], U [phone] (ABNORMAL) Blood gas arterial with oxyhemoglobin (1200) (05/05/2017 8:20 PM CDT) Patholo gist Method Time Signature pH Arterial 7.23 (L) 7.35 [facility] 7.45 pH [facility] pCO2 Arterial 45 35 - 45 [place] mm Hg [facility] pO2 Arterial 159 (H) 80 - 105 [place] mm Hg [facility] Bicarbonate 19 (L) 21 - 28 [place] Arterial mmol/L [facility] FIO2 BIPAP [place] 60 [facility] Oxyhemoglobin 99 92 - 100 [place] Arterial % [facility] Base Deficit Art 8.2 mmol/L [facility] Comment: Reference range: -9.0 to 1.8 Specimen Anatomical Collection Method Collection Time Receive d Time (Source) Location / / Volume Laterality Blood specimen 05/05/2017 8:20 PM 017 8:25 (specimen) CDT PM CDT Aubrey Irvin MD LAB - BLOOD ORDERABLES Performing Organization Address City/State/ZIP Code Phon e Number M [facility] [address] [place] [address] [phone] [facility] [address] [place] [address], [place] [phone] (ABNORMAL) Glucose by meter (05/05/2017 8:06 PM [...] negative amphetamine is 500 ng/mL or less. [facility] Barbiturates Qual Negative [place] [place] Urine Cutoff for a negative barbiturate is 200 ng/mL or less. [facility] Benzodiazepine Negative NEG [place] Qual Urine Cutoff for a negative benzodiazepine is 200 ng/mL or less . [facility] Cannabinoids Qual Negative [facility]G [place] Urine Cutoff for a negative cannabinoid is 50 ng/mL or less. [facility] Cocaine Qual Negative [facility]G [place] Urine Cutoff for a negative cocaine is 300 ng/mL or less. [facility] HOSPITAL Opiates Positive NEG [facility] Qualitative Urine Cutoff for a positive opiat e is greater than 300 ng/mL. This is an unconfirmed [facility] screening result to be used for medical purposes only. HOSPITAL (A) PCP Qual Urine Negative NEG [facility] Cutoff for a negative PCP is 25 ng/mL or less. [facility] Specimen Anatomical Collection Method Collection Time Receive d Time (Source) Location / / Volume Laterality 05/05/2017 5:20 PM 7 7:11 CDT PM CDT Miladys Mccullough MD LAB - URINE ORDERABLES Performing Organization Address City/State/ZIP Code Phon e Number [facility] [address] [address] [phone] HOSPITAL [facility] [address] [address], [place] [phone] (ABNORMAL) Urine Microscopic (05/05/2017 5:20 PM CDT) [facility] Method Time Signature WBC Urine O - 2 0 - 2 [place] /HPF [facility] [place] RBC Urine O - 2 0 - 2 [place] /HPF [facility] Cast Urine 2-5 0 - 2 [place] HYALINE /LPF [facility] Bacteria Urine Few (A) NEG /HPF [facility] Mucous Urine Present (A) NEG /LPF [facility] Specimen Anatomical Collection Method Collection Time Receive d Time (Source) Location / / Volume Laterality 05/05/2017 5:20 PM 7 5:29 CDT PM CDT Miladys Mccullough MD LAB - URINE ORDERABLES Performing Organization Address City/[facility]/ZIP Code Phon e Number [facility] [address] [address] (ABNORMAL) UA reflex to Microscopic and Culture (05/05/2017 5:20 PM CDT) Component Value Ref Test Analysis Performed At [facility] Range Method Time Signature Color Urine Yellow [facility] Appearance Urine Clear [facility] Glucose Urine Negative NEG [place] mg/dL [facility] Bilirubin Urine Negative NEG [facility] Ketones Urine Negative NEG [place] mg/dL [facility] Specific [place] 1.020 1.003 - [place] Urine 1.035 [facility] Blood Urine Negative NEG [facility] pH Urine 5.5 5.0 - [place] 7.0 pH [facility] Protein Albumin 30 (A) NEG [place] Urine mg/dL [facility] Urobilinogen 0.2 0.2 - [place] Urine 1.0 [facility] EU/dL [place] Nitrite Urine Negative NEG [facility] Leukocyte Negative NEG [place] Esterase Urine [facility] [place] Source Catheterized [place] Urine [facility] [place] Specimen Anatomical Collection Method Collection Time Receive d Time (Source) Location / / Volume Laterality 05/05/2017 5:20 PM 7 5:29 CDT PM CDT Miladys Mccullough MD LAB - URINE ORDERABLES Performing Organization Address City/State/ZIP Code Phon e Number [facility] [place] [address] [place], [place] [address] Blood culture (05/05/2017 4:30 PM CDT) [facility] gist Method Time Signature Specimen Blood Left [facility] Special Aerobic and [place] Requests anaerobic [facility] bottles [place] received Culture Micro No [...] Address City/[facility]/ZIP Code Phon e Number INFECTIOUS DISEASES [address] [place] [address] DIAGNOSTIC LABORATORY, [id number] [place] [address] [address] [place] [address] [place] INFECTIOUS DISEASE [address] DIAGNOSTIC LABORATORY Lactic acid whole blood (05/05/2017 3:50 PM CDT) P athologist Signature Lactic Acid 1.5 0.7 - 2.1 [place] mmol/L [facility] Specimen Anatomical Collection Method Collection Time Receive d Time (Source) Location / / Volume Laterality 05/05/2017 3:50 PM 7 4:06 CDT PM CDT Leesa Martinez MD LAB - BLOOD ORDERABLES Performing Organization Address City/State/ZIP Code Phon e Number [facility] [address] [place] [address] [facility] [address] [address], [facility] [phone] Blood culture (05/05/2017 3:45 PM CDT) [facility] gist Method Time Signature Specimen Blood Left [facility] Special Aerobic and [place] Requests anaerobic [facility] ED bottles [place] received Culture Micro No [...] Code Phon e Number INFECTIOUS DISEASES [address] [place] [address] DIAGNOSTIC LABORATORY, [phone] [place] [address] [address] [address], [facility] [place] INFECTIOUS DISEASE [address] [place], [place] [address] DIAGNOSTIC LABORATORY Chest XR, 1 view PORTABLE [...] 7.22 (L) 7.35 - [facility] 7.45 pH [facility] pCO2 Arterial 48 (H) 35 - 45 [place] mm Hg [facility] pO2 Arterial 112 (H) 80 - 105 [place] mm Hg [facility] Bicarbonate 20 (L) 21 - 28 [place] Arterial mmol/L [facility] Oxyhemoglobin 97 92 - 100 [place] Arterial % [facility] Base Deficit Art 7.5 mmol/L [facility] Comment: Reference range: -9.0 to 1.8 Specimen Anatomical Collection Method Collection Time Receive d Time (Source) Location / / Volume Laterality Blood specimen 05/05/2017 3:33 PM 017 3:54 (specimen) CDT PM CDT Leesa Martinez MD LAB - BLOOD ORDERABLES Performing Organization Address City/State/ZIP Code Phon e Number [facility] [address] [address] [facility] [address] [address], [facility] [phone] Troponin POCT (05/05/2017 3:29 PM CDT) P [...] EKG 12 lead (05/05/2017 3:24 PM CDT) [facility] gist Method Time Signature Interpretation ECG Click [...] CK Total 325 (H) 30 - 300 [facility] U/L [facility] Specimen Anatomical Collection Method Collection Time Receive d Time (Source) Location / / Volume Laterality 05/05/2017 3:20 PM 7 3:31 CDT PM CDT Leesa Martinez MD LAB - BLOOD ORDERABLES Performing Organization Address City/State/ZIP Code Phon e Number [facility] [address] [place] [address] [phone] [facility] [address] [place] [address], [place] [phone] Alcohol ethyl (05/05/2017 3:20 PM CDT) P athologist Signature Ethanol g/dL <0.01 <0.01 g/dL [facility] Specimen Anatomical Collection Method Collection Time Receive d Time (Source) Location / / Volume Laterality 05/05/2017 3:20 PM 7 3:31 CDT PM CDT Leesa Martinez MD LAB - BLOOD ORDERABLES Performing Organization Address City/State/ZIP Code Phon e Number [facility] [address] [place] [address] [phone] [facility] [address] [place] [address], [place] [phone] Salicylate level (05/05/2017 3:20 PM CDT) Patholo gist Method Time Signature Salicylate <2 mg/dL [facility] Therapeutic: ?<20 [place] Anti inflammatory: ??15-30 [facility] Specimen Anatomical Collection Method Collection Time Receive d Time (Source) Location / / Volume Laterality Blood specimen 05/05/2017 3:20 PM 017 3:31 (specimen) CDT PM CDT Leesa Martinez MD LAB - BLOOD ORDERABLES Performing Organization Address City/State/ZIP Code Phon e Number [facility] [address] [place] [address] [phone] [facility] [address] [place] [address], [place] [phone] Acetaminophen level (05/05/2017 3:20 PM CDT) Component Value Ref Test Analysis Performed At [facility] gist Range Method Time Signature Acetaminophen <2 mg/L [place] Level Therapeutic range: 10-20 mg/L [facility] Specimen Anatomical Collection Method Collection Time Receive d Time (Source) Location / / Volume Laterality Blood specimen 05/05/2017 3:20 PM 017 3:31 (specimen) CDT PM CDT Leesa Martinez MD LAB - BLOOD ORDERABLES Performing Organization Address City/State/ZIP Code Phon e Number [facility] [address] [place] [address] [facility] [address] [place] [address], [place] [phone] (ABNORMAL) Comprehensive metabolic panel (05/05/2017 3:20 PM CDT) Analysis Performed At [facility] logist Time Signature Sodium 141 133 - 144 [place] mmol/L [facility] Potassium 4.4 3.4 - 5.3 [place] mmol/L [facility] Chloride 107 94 - 109 [place] mmol/L [facility] Carbon Dioxide 23 20 - 32 [place] mmol/L [facility] Anion Gap 11 3 - 14 [place] mmol/L [facility] Glucose 126 (H) 70 - 99 [place] mg/dL [facility] Urea Nitrogen 48 (H) 7 - 30 [place] mg/dL [facility] Creatinine 2.41 (H) 0.66 - [place] 1.25 mg/dL [facility] GFR Estimate 26 (L) >60 [place] mL/min/1.[address] Comment: Non GFR Calc GFR Estimate If Black 32 (L) >60 mL/min/1.7m2 F [facility] Comment: GFR Calc Calcium 8.6 8.5 - 10.1 mg/dL [facility] Bilirubin Total 0.5 0.2 - 1.3 mg/dL [facility] Albumin 3.3 (L) 3.4 - 5.0 g/dL [facility] Protein Total 6.9 6.8 - 8.8 g/dL [facility] Alkaline Phosphatase 166 (H) 40 - 150 U/L [facility] ALT 29 0 - 70 U/L [facility] AST 22 0 - 45 U/L [facility] Specimen Anatomical Collection Method Collection Time Receive d Time (Source) Location / / Volume Laterality Blood specimen 05/05/2017 3:20 PM 017 3:31 (specimen) CDT PM CDT Leesa Martinez MD LAB - BLOOD ORDERABLES Performing Organization Address City/State/ZIP Code Phon e Number [facility] [address] [place] [address] [phone] [facility] [address] [place] [address], [place] [phone] (ABNORMAL) CBC with platelets differential (05/05/2017 3:20 PM CDT) [facility] Method Time Signature WBC 17.7 (H) 4.0 - [place] 11.0 [facility] 10e9/[facility] RBC Count 4.32 (L) 4.4 - 5.9 [place] 10e12/L [facility] Hemoglobin 14.3 13.3 - [place] 17.7 g/dL [facility] Hematocrit 42.9 40.0 - [place] 53.0 % [facility] MCV 99 78 - 100 [facility] MCH 33.1 (H) 26.5 - [place] 33.0 pg [facility] MCHC 33.3 31.5 - [place] 36.5 g/dL [facility] RDW 13.0 10.0 - [place] 15.0 % [facility] Platelet Count 170 150 - 450 [place] 10e9/L [facility] Diff Method Automated [facility] % Neutrophils 83.6 % [facility] % Lymphocytes 9.3 % [facility] % Monocytes 6.0 % [facility] % Eosinophils 0.7 % [facility] % Basophils 0.1 % [facility] % Immature 0.3 % [place] Granulocytes [facility] Nucleated RBCs 0 0 /100 [facility] Absolute 14.8 (H) 1.6 - 8.3 [place] Neutrophil 10e9/L [facility] Absolute 1.7 0.8 - 5.3 [place] Lymphocytes 10e9/L [facility] Absolute 1.1 0.0 - 1.3 [place] Monocytes 10e9/L [facility] Absolute 0.1 0.0 - 0.7 [place] Eosinophils 10e9/L [facility] Absolute 0.0 0.0 - 0.2 [place] Basophils 10e9/L [facility] Abs Immature 0.1 0 - 0.4 [place] Granulocytes 10e9/L [facility] Absolute 0.0 [place] Nucleated RBC [facility] Specimen Anatomical Collection Method Collection Time Receive d Time (Source) Location / / Volume Laterality Blood specimen 05/05/2017 3:20 PM 017 3:31 (specimen) CDT PM CDT Leesa Martinez MD LAB - BLOOD ORDERABLES Performing Organization Address City/State/ZIP Code Phon e Number [facility] [address] [address] [phone] [facility] [address] [address], [facility] [phone] documented in this encounter Visit Diagnoses Diagnosis [...] attach to NS 100 mL bag (COMPLETED) 5741 (New Bag - Provider: Rosette Reese RN) [...] Rosette Reese RN) 0201 (Given - Provider: eFla Aguillon , JOSE)0556 (Given - Provider: Fela [...] Irritant.
documented in this encounter Care Teams Manager Generation Relationship Specialty Start Date End Date Celina Coley PCP - General Family Practice 05/05/17 05/11/[address] [address] Bandar, Kehinde Portillofield PCP - General 05/12/[address] [place] [phone] documented as of this encounter
--- OUTSIDE RECORDS SUMMARY | 2022-08-14 11:19 | XMS_ITS | Encounter Summary ---
:1940 Author Organization [place] Address [address] [place] [address] Care Team Providers Name Role Phone Primary Dr, Unknown Primary Care Provider Unavailable Reason for Visit Reason Comments Surgical Followup bilat infections Encounter Details Date Type Department Care Team Description 10/05/2012 Office Visit [facility] Sal Chaparro [facility] are following [facility] [place] F, DPM surgery of the [address] [place] [address] musculoskeletal system, [place], [place] E NEC (Primary Dx) [phone] [address] [place] [address] [place], [place] [address] Social History Tobacco Use Types [...] Comments Blood Pressure 136/80 10/05/2012 12:04 PM HUMAN RELATIONS MANAGER Pulse 60 10/05/2012 12:04 PM HUMAN RELATIONS MANAGER Temperature 36.8 ??C (98.2 ??F) 10/05/2012 12:04 PM HUMAN RELATIONS MANAGER Respiratory Rate - - Oxygen Saturation - - Inhaled Oxygen Concentration - - Weight 93 kg (205 lb) 10/05/2012 12:04 PM HUMAN RELATIONS MANAGER Height 170.2 cm (5' 7) 10/05/2012 12:04 PM HUMAN RELATIONS MANAGER Body Mass Index 32.11 10/05/2012 12:04 PM HUMAN RELATIONS MANAGER documented in this encounter Progress Notes Sal [...] or concerns and follow-up in 1-2 wks. N RELATIONS MANAGER documented in this encounter Plan of Treatment Not on filedocumented as of this encounter Procedures Procedure Name Priority Date/Time Associated Diagnosis Comme nts CBC WITH PLATELETS & Routine 10/05/2012 12:21 Aftercare follow ing Results for this DIFFERENTIAL PM HUMAN RELATIONS MANAGER surgery of the procedure are in musculoskeletal system, the results NEC section. URIC ACID Routine 10/05/2012 12:21 Aftercare following Resu lts for this PM HUMAN RELATIONS MANAGER surgery of the procedure are in musculoskeletal system, the results NEC section. BASIC METABOLIC Routine 10/05/2012 12:21 Aftercare following R esults for this PANEL PM HUMAN RELATIONS MANAGER surgery of the procedure are in musculoskeletal system, the results NEC section. WOUND CULTURE Routine 10/05/2012 12:20 Aftercare following Res ults for this AEROBIC BACTERIAL PM HUMAN RELATIONS MANAGER surgery of the procedur e are in musculoskeletal system, the results NEC section. documented in this encounter Results (ABNORMAL) Basic metabolic panel (Ca, Cl, CO2, Creat, Gluc, K, Na, BUN) (10/05/2012 12:21 PM HUMAN RELATIONS MANAGER) Analysis Performed At Patho logist Time Signature Sodium 140 133 - 144 [place] mmol/L [facility] Potassium 4.8 3.4 - 5.3 [place] mmol/L [facility] Chloride 103 94 - 109 [place] mmol/L [facility] Carbon Dioxide 25 20 - 32 [place] mmol/L [facility] Anion Gap 12 6 - 17 [place] mmol/L [facility] Glucose 108 (H) 60 - 99 [place] mg/dL [facility] Urea Nitrogen 23 7 - 30 [place] mg/dL [facility] Creatinine 1.41 (H) 0.66 - [facility] 1.25 mg/dL [facility] GFR Estimate 50 (L) >60 [place] mL/min/1.7 [facility] m2 LAB GFR Estimate If 60 (L) >60 [place] Black mL/min/1.7 [facility] m2 LAB Calcium 9.5 8.5 - 10.4 [place] mg/dL [facility] Specimen Anatomical Collection Method Collection Time Receive d Time (Source) Location / / Volume Laterality Blood specimen 10/05/2012 12:21 2 (specimen) PM HUMAN RELATIONS MANAGER 12:22 PM HUMAN RELATIONS MANAGER Sal Chaparro DPM LAB - BLOOD ORDERABLES Performing Organization Address City/State/ZIP Code Phon e Number [address] [address] [facility] (ABNORMAL) CBC with platelets and differential (10/05/2012 12:21 PM HUMAN RELATIONS MANAGER) [facility] Method Time Signature WBC 7.8 4.0 - [facility] 11.0 [facility] 10e9/L CL[facility] LAB RBC Count 4.45 4.4 - 5.9 [facility] 10e12/L [facility] Hemoglobin 14.6 13.3 - [facility] 17.7 g/dL [facility] Hematocrit 43.2 40.0 - [facility] 53.0 % [facility] MCV 97 78 - 100 [facility] fl [facility] MCH 32.8 26.5 - [facility] 33.0 pg [facility] MCHC 33.8 31.5 - [facility] 36.5 g/dL [facility] RDW 12.9 10.0 - [facility] 15.0 % [facility] Platelet Count 152 150 - 450 [place] 10e9/L [facility] Diff Method Automated [place] Method [facility] % Neutrophils 62.1 40 - 75 % [facility] % Lymphocytes 18.9 (L) 20 - 48 % [facility] % Monocytes 13.4 (H) 0 - 12 % [facility] % Eosinophils 5.2 0 - 6 % [facility] % Basophils 0.4 0 - 2 % [facility] Absolute 4.9 1.6 - 8.3 [place] Neutrophil 10e9/L [facility] Absolute 1.5 0.8 - 5.3 [place] Lymphocytes 10e9/L [facility] Absolute 1.1 0.0 - 1.3 [place] Monocytes 10e9/L [facility] Absolute 0.4 0.0 - 0.7 [place] Eosinophils 10e9/L [facility] Absolute 0.0 0.0 - 0.2 [place] Basophils 10e9/L [facility] Specimen Anatomical Collection Method Collection Time Receive d Time (Source) Location / / Volume Laterality Blood specimen 10/05/2012 12:21 2 (specimen) PM HUMAN RELATIONS MANAGER 12:22 PM HUMAN RELATIONS MANAGER Sal Chaparro [facility] LAB - BLOOD ORDERABLES Performing Organization Address City/[facility]/ZIP Code Phon e Number [facility] [id number] [place] [address] [facility] Uric acid (10/05/2012 12:21 PM HUMAN RELATIONS MANAGER) P athologist Signature Uric Acid 7.1 3.5 - 8.5 [facility] LAB Specimen Anatomical Collection Method Collection Time Receive d Time (Source) Location / / Volume Laterality Blood specimen 10/05/2012 12:21 2 (specimen) PM HUMAN RELATIONS MANAGER 12:22 PM HUMAN RELATIONS MANAGER Sal Chaparro DP LAB - BLOOD ORDERABLES Performing Organization Address [facility] Phon e Number [facility] [address] [place] [address] [facility] Wound culture (10/05/2012 12:20 PM HUMAN RELATIONS MANAGER) [facility] Method Time Signature Specimen Other [facility] Culture Micro No growth [facility] MICROBIOLOGY Micro Report FINAL [facility] Status 10/07/2012 MICROBIOLOGY Specimen Anatomical Collection Method Collection Time Receive d Time (Source) Location / / Volume Laterality Specimen from 10/05/2012 12:20 10/05/2012 wound (specimen) PM HUMAN RELATIONS MANAGER 12:41 PM CS T Sal [facility] - MICRO GENERAL ORDERABL ES Performing Organization Address City/State/ZIP Code Phon e Number [address] LAB [facility] MICROBIOLOGY documented in this encounter Visit Diagnoses Diagnosis Aftercare following surgery of the muscu loskeletal system, NEC - Primary documented in this encounter Care Teams Police Artist Relationship Specialty Start Date End Date Primary Dipak Kasper, PCP - General 09/21/1204/18 documented as of this encounter
--- OUTSIDE RECORDS SUMMARY | 2022-08-14 11:19 | XMS_ITS | Encounter Summary ---
:1940 Author Organization [place] Address [facility] [place] [address] Care Team Providers Name Role Phone Unavailable Primary Care Provider Unavailable Reason for Visit Reason Comments Surgical Followup 02/06/11 post op left foot wi th hardware. pt is having pain. Encounter Details Date Type Department Care Team Description 07/30/2012 Office Visit [facility] Sal Chaparro pa in (Primary Dx); Yariel Castellanos DPM Enthesopathy of unspecified site [address] [place] [address] E [phone] [facility] [address] [place], [place] [address] Social History Tobacco Use Types [...] Procedure Time: 30 min Anesthesia: MAC Location: [facility] Pre-Operative Medications: Clindamycin 900 mg IV pre-op Special Instrumentation: Synthes mini locking plate screw shuttle van driver documented in this encounter Nursing Notes [...]
--- OUTSIDE RECORDS SUMMARY | 2022-08-14 11:19 | XMS_ITS | Encounter Summary ---
:1940 Author Organization [place] Address [address] [place] [address] Care Team Providers Name Role Phone Primary Dr, Dipak WELSH Primary Care Provider Unavailable Reason for Visit Reason Onset Date Comments Patient/info Update 10/04/2012 Encounter Details Date Type Department Care Team Description 10/04/2012 Telephone [facility] Sal Chaparro, Patient/info Update Yumiko WELSH MD [address] [facility] [phone] [facility] [phone] [place] [phone] (Wo rk) Social History Tobacco Use Types Packs/Day Years Used Date Smoking Tobacco: Former Comments: quit 1984 Alcohol Use Standard Drinks/Week Comments Yes 0 (1 standard drink = 0.6 oz pure alcoho l) 10 per week Sex Assigned at Date Recorded Not on file documented as of this encounter Miscellaneous Notes Telephone Encounter - Sal Chaparro DPM - 10/05/2012 11:14 AM ELECTRO MECHANIC Spoke w/ pt and we will check him today (10/05/12) @ 11:30 TRO MECHANIC Telephone Encounter - Amber Mead - 10/04/2012 11:[address] Dr. Chaparro, G[place]. Please read. Message below. Let me know if I can assist at all. Amber Mead CMA ([facility]) TRO MECHANIC Telephone Encounter - Sandra Melgar - 10/04/2012 10:[address] Nesbitt has placed this rx. Rx faxed. Jaime Melgar CMA ([facility]) TRO MECHANIC Telephone Encounter - Amber Mead - 10/04/2012 [...] but patient feels lousy Spoke with DPM incident response consultant, Dr. Green. He recommended Bactrim DS BID x 10 days Called RX into [facility] per patient's daughter request. Called Raquel back and left message on cell phone ([phone]), offered 230 appointment in [place] with Dr. Green if would like. Otherwise, f/u with Dr. Chaparro this week. Patient's daughter is requesting refill of Violet 5-325 - , can you approve and I can call in? Amber Mead CMA ([facility]) TRO MECHANIC documented in this encounter Plan of Treatment Not on filedocumented as of this encounter Visit Diagnoses Diagnosis Ingrowing nail - Primary Pain in limb documented in this encounter Care Teams Director Of Career Resources Relationship Specialty Start Date End Date Primary Dipak Kasper MD PCP - General 09/21/1204/18 documented as of this encounter
--- OUTSIDE RECORDS SUMMARY | 2022-08-14 11:19 | XMS_ITS | Encounter Summary ---
:1940 Author Organization [place] Address [address] [place] [address] Care Team Providers Name Role Phone Unavailable Primary Care Provider Unavailable Encounter Details Date Type Department Care Team Description 08/05/2012 Telephone [facility] Sal Chaparro DPM [address] [place] [phone] [place] [address] [place] [address] (Wo rk) Social History Tobacco Use Types [...] outlook. Date/Time: 09/30/2012 @ 12:50 pm Hospital: [facility] Anesthesia: MAC Surgeon: Juana CourtneyPNomanMNoman Preop:Unknown Consent: Hardware removal left foot Surgeon Procedure Time: 30 min Anesthesia: MAC Location: [facility] Pre-Operative Medications: Clindamycin 900 mg IV pre-op Special Instrumentation: Synthes mini locking plate screw canal driver Electronically signed by Sal F. Krysta,DPM [...]
--- OUTSIDE RECORDS SUMMARY | 2022-08-14 11:19 | XMS_ITS | Encounter Summary ---
:1940 Author Organization [place] Address [facility] [place] [address] Care Team Providers Name Role Phone Unavailable Primary Care Provider Unavailable Reason for Visit Reason Comments Surgical Followup follow up to left foot surge ry. Encounter Details Date Type Department Care Team Description 07/16/2011 Office Visit [facility] Sal Chaparro p ain (Primary Dx); Clinic Yumiko Castellanos DPM [place] [address] [place] [phone] [place] [address] Social History Tobacco Use Types [...]
--- OUTSIDE RECORDS SUMMARY | 2022-08-14 11:19 | XMS_ITS | Encounter Summary ---
:1940 Author Organization [place] Address [address] [place] [address] Care Team Providers Name Role Phone Unavailable Primary Care Provider Unavailable Reason for Visit Reason Comments Surgical Followup left foot post op. Encounter Details Date Type Department Care Team Description 09/17/2011 Office Visit [facility] Sal Chaparro aftercare Clinic [place] ADALID Castellanos (Primary Dx) [address] [place] [phone] [place] [address] Social History Tobacco Use Types [...] a regular shoe on lt. F/U prn. ATING ROOM ORDERLY documented in this encounter Nursing Notes 09/17/2011 [...] Surgery aftercar e Results for this VIEWS OPERATING ROOM ORDERLY procedure are i n the results section. documented in this encounter Results X-ray lt Foot G/E 3 vws* (09/17/2011 9:01 AM OPERATING ROOM ORDERLY) Anatomical Region Laterality Modality Foot, Ankle Left Other Specimen (Source) Anatomical Collection Method Collection Time Re ceived Time Location / / Volume Laterality 09/17/2011 9:01 AM OPERATING ROOM ORDERLY Impressions 09/17/2011 11:23 AM OPERATING ROOM ORDERLY FOOT THREE OR MORE VIEWS LEFT Sep [...]
--- OUTSIDE RECORDS SUMMARY | 2022-08-14 11:19 | XMS_ITS | Encounter Summary ---
:1940 Author Organization [place] Address [address] [place] [address] Care Team Providers Name Role Phone Primary Dr, Unknown Primary Care Provider Unavailable Reason for Visit Reason Comments Surgical Followup bilateral post op Encounter Details Date Type Department Care Team Description 10/22/2012 Office Visit [facility] Sal Chaparro Afterca re following Yariel Castellanos DPM surgery of the [address] [email or web address] [address] [place] [address] musculoskeletal system, [place] [address] E NEC (Primary Dx) [phone] [address] [place], [place] [address] Social History Tobacco Use Types [...] 93 kg (205 lb) 10/22/2012 9:14 AM INVOICE CHECKER Height 170.2 cm (5' 7) 10/22/2012 9:14 AM INVOICE CHECKER Body Mass Index 32.11 10/22/2012 9:14 AM INVOICE CHECKER documented in this encounter Progress Notes Sal [...] questions or concerns and follow-up in prn. ICE CHECKER documented in this encounter Nursing Notes 10/22/2012 9:00 AM CST >> MELL MAGANA Fri Oct 22, 2012 9:14 AM Patient presents with: Surgical Followup - bilateral post op Mell Magana CMA documented in this encounter Plan of Treatment Not on filedocumented as of this encounter Visit Diagnoses Diagnosis Aftercare following [facility], NEC - Primary documented in this encounter Care Teams Forensic Manager Relationship Specialty Start Date End Date Primary Dipak Kasper MD PCP - General 09/21/1204/18 documented as of this encounter
--- OUTSIDE RECORDS SUMMARY | 2022-08-14 11:19 | XMS_ITS | Encounter Summary ---
:1940 Author Organization [place] Address [address] [place] [address] Care Team Providers Name Role Phone Primary Dr, Unknown Primary Care Provider Unavailable Reason for Visit Auth/Cert - Closed Specialty Diagnoses / Procedures Referred By Contact Refer red To Contact Surgery Diagnoses painful internal fixation left foot Rh Periop Services Procedures REMOVE HARDWARE FOOT [address] [place], [place] [address] Phone: Fax: Referral ID Status Reason Start Date Expiration Date Visits Requ ested Visits Authorized [id number] Closed 1 1 Encounter Details Date Type Department Care Team Description 09/30/2012 Hospital Encounter [facility] Alvin Trujillo rcare following Andres Castellanos, ADALID surgery of the PreOP/PostOP [address] musculoskeletal system, [address] NEC (Primary Dx) [address] [place] [address] [phone] Social History Tobacco Use Types Packs/Day Years Used Date Smoking Tobacco: Former Comments: quit 1984 Alcohol Use Standard Drinks/Week Comments Yes 0 (1 standard drink = 0.6 oz pure alcoho l) 10 per week Sex Assigned at Date Recorded Not on file documented as of this encounter Last Filed Vital Signs Vital Sign Reading Time Taken Comments Blood Pressure 130/79 09/30/2012 2:45 PM MANAGER FREELANCE Pulse - - Temperature 36.2 ??C (97.2 ??F) 09/30/2012 2:45 PM MANAGER FREELANCE Respiratory Rate 16 09/30/2012 2:45 PM MANAGER FREELANCE Oxygen Saturation 98% 09/30/2012 2:45 PM MANAGER FREELANCE Inhaled Oxygen Concentration - - Weight 93 kg (205 lb) 09/30/2012 10:24 AM MANAGER FREELANCE Height 170.2 cm (5' 7) 09/30/2012 10:24 AM MANAGER FREELANCE Body Mass Index 32.11 09/30/2012 10:24 AM MANAGER FREELANCE documented in this encounter Discharge Instructions Discharge [...] DR. SAL TRUJILLO M.D. CLINIC PHONE NUMBER: [phone]. GER FREELANCE documented in this encounter Medications at Time [...] Trujillo DPM - 09/23/2012 4:09 PM CST GER FREELANCE documented in this encounter Nursing Notes wIona Ruiz RN - 09/30/2012 12:33 PM CST First Panel started at 1210 and ended at 1230. Second panel started at 1230 and ended at 1237. Jen Ruiz RN GER FREELANCE Iwona Ruiz RN - 09/30/2012 12:22 PM CST Patient did not want his hardware that was removed from procedure on 09/30/[address] Trujillo. Jen Ruiz RN GER FREELANCE documented in this encounter OR Notes OR Anesthesia - Sal Trujillo DPM - 10/01/2012 9:43 AM CST GER FREELANCE documented in this encounter Miscellaneous Notes Op [...] DPM MT: #[id number] Name: ELDA HENDRICKS Account: [id number] : 1940 Procedure Date: 09/30/2012 Document: [id number] cc: Ramiro Walker MD GER FREELANCE Brief Op Note - Sal Trujillo DPM - 09/30/2012 1:01 PM CST [facility] Podiatry/Foot and Ankle Surgery Brief Operative Note Pre-operative diagnosis: Painful Internal Fixation left foot Painful recurrence of toenail right great toe Post-operative diagnosis same Procedure: Procedure(s): Hardware Removal left foot - Deep Surgical matrixectomy right great toe Surgeon: SAL TRUJILLO DPM Assistants(s): Anesthesia: MAC Estimated blood loss: 5 cc GER FREELANCE documented in this encounter Plan of Treatment Not on filedocumented as of this encounter Procedures Procedure Name Priority Date/Time Associated Diagnosis Comme nts XR FOOT PORT LEFT 3 Routine 09/30/2012 1:44 PM Re sults for this VIEWS MANAGER FREELANCE procedure are i n the results section. EXCISION, TOENAIL 09/30/2012 11:41 AM painful internal MANAGER FREELANCE fixation left foot Special Needs 5'# Hx MRSA REMOVAL, HARDWARE, FOOT 09/30/2012 11:41 AM MANAGER FREELANCE painfu l internal fixation left foot Special Needs 5# Hx MRSA EKG 12-LEAD, TRACING ONLY Routine 09/30/2012 11:38 AM MANAGER FREELANCE Results for this procedure are in the resu lts section. HIM ECG SCAN Routine 09/30/2012 documented in this encounter Results X-ray LEFT Foot 3 vw port (09/30/2012 1:44 PM MANAGER FREELANCE) Anatomical Region Laterality Modality Left Foot Left Other Specimen (Source) Anatomical Collection Method Collection Time Re ceived Time Location / / Volume Laterality 09/30/2012 1:44 PM MANAGER FREELANCE Impressions 10/01/2012 10:47 AM MANAGER FREELANCE IMPRESSION: Postoperative and degenerative change. No acute abnormality. ODILON RANDOLPH MD Narrative 10/01/2012 10:47 AM MANAGER FREELANCE LEFT FOOT THREE OR MORE VIEWS PORTABLE [...] EKG 12-lead, tracing only (09/30/2012 11:38 AM MANAGER FREELANCE) Component Value Ref Range Test Analysis Performed Pathologis t Method Time At Signature Ventricular Rate 64 BPM RADIOLOGY RESULTS Atrial Rate 64 BPM RADIOLOGY RESULTS NV Interval 154 ms RADIOLOGY RESULTS QRS Duration 80 ms RADIOLOGY RESULTS QT 410 ms RADIOLOGY RESULTS QTc 422 ms RADIOLOGY RESULTS P Carlock -1 degrees RADIOLOGY RESULTS R AXIS -9 degrees RADIOLOGY RESULTS T Carlock -7 degrees RADIOLOGY RESULTS Interpretation Sinus rhythm [...] / / Volume Laterality 09/30/2012 11:38 AM MANAGER FREELANCE Doctor Unknown MD ECG ORDERABLES Performing Organization Address City/State/ZIP Code Phon e Number RADIOLOGY RESULTS ECG - HIM ECG Scan (09/30/2012) Narrative This result has an attachment that is no t available. Sal Trujillo DPM ECG ORDERABLES documented in this encounter Visit Diagnoses Diagnosis Aftercare following surgery of the [facility], [facility] - Primary documented in this encounter Administered Medications Inactive Administered Medications - up to 3 most recent administrations Medication Order MAR Action Action Date Dose Rate Site fentaNYL (SUBLIMAZE) injection Given 09/30/2012 2:16 PM MANAGER FREELANCE 50 m cg 25-50 mcg 25-50 mcg, Intravenous, EVERY 2 MIN PRN, other, acute pain, Starting on Yesenia 09/30/12 at 1251, MAX cumulative dose = 250 mcg. Use Fentanyl initially, as a short acting agent for acute pain control. If insufficient, or a longer acting agent is needed, begin Morphine or Hydromorphone if ordered., PACU Given 09/30/2012 1:33 PM MANAGER FREELANCE 50 mcg HYDROcodone-acetaminophen 5-325 MG per Given 09/30/2012 2:16 PM MANAGER FREELANCE 1 tablet tablet 1-2 tablet 1-2 tablet, Oral, ONCE, On Yes[place] 09/30/12 at 1330, For 1 dose, One time prior to discharge., Post-procedure lactated ringers infusion New Bag 09/30/2012 1:33 PM MANAGER FREELANCE 1,000 mLs 100 mL/hr at 100 mL/hr, Intravenous, CONTINUOUS, Continue until IV catheter is weaned, PACU, Starting on Yesenia 09/30/12 at 1300, Until Yesenia 09/30/12 at 1723 documented in this encounter Active and Recently Administered Medications Times are shown in MANAGER FREELANCE. Scheduled Medication Order 09/28/2012 09/29/2012 09/30/2012 HYDROcodone-acetaminophen [...] Intra-procedure documented in this encounter Care Teams Emergency Management System Director Relationship Specialty Start Date End Date Primary Dipak Kasper MD PCP - General 09/21/1204/18 documented as of this encounter
--- OUTSIDE RECORDS SUMMARY | 2022-08-14 11:19 | XMS_ITS | Encounter Summary ---
:1940 Author Organization [employer] Address [address] [place] [address] Care Team Providers Name Role Phone Primary Dipak Kasper MD Primary Care Provider Unavailable Celina Coley Primary Care Provider [facility] [place] Primary Care Provider Jon White MD Unavailable [phone] Ramiro Loco MD Unavailable Gallito Gonzalez MD Unavailable Encounter Details Date Type Department Care Team Description 05/02/2014 Records - [facility] Cheryl Enriquez , RN [address] [address] Social History Tobacco Use Types [...] weeks for routine followup. Isra Fregoso M.D. [facility] Ghada Mattie Isis - 05/04/2014 3:42 [...] - 05/07/2014 12:18 PM CDT Confirmed with [facility] acceptance of pt for PT and OT. Notified pt of [facility] PT and OT acceptance and informed pt and daughter agency will be contacting pt on Thursday, 05/08, to schedule appointment. MARIELA Dillon, [facility] Clinical Social Work Whiskey Regauger Luciano León - 05/07/2014 11:25 AM CDT [facility] Daily Progress Note Assessment/Plan: 1. Hypertension. Continue [...] resolved, no tenderness or swelling. Isra Fregoso [facility] Date: 05/07/2014 Time: 10:42 AM Historical Provider - 05/06/2014 1:16 PM CDT [facility] met with pt re home health care services. Pt requested [facility] for PT and OT. [facility] contacted [facility] at [phone] making referral to this agency. Fax no is [phone]. [facility] will follow pt to discharge. MARIELA Dillon, [facility] Clinical Social Work Care Managedr Low Ramirez - 05/06/2014 12:12 PM CDT [facility]AT[facility] NOTE Name: Speedy Hendricks : 1940 [...] to weight bear, equivocal SLR. Isra Fregoso [facility] Date: 05/06/2014 Time: 11:15 AM Lexie [...] Ca Plunkett - 05/05/2014 3:50 PM CDT [facility]AT[facility] NOTE Name: Speedy Hendricks : 1940 [...] León S - 05/05/2014 9:29 AM CDT [facility] Daily Progress Note Assessment/Plan: 1. Hypertension. Continue [...] Care Management should needs arise. Cedric Borrego LOGGING CREW FOREMAN, GRAIN ELEVATOR OPERATOR Lety Dickerson RN - 05/04/2014 12:00 PM [...] Luciano León - 05/03/2014 12:31 PM CDT [facility] Daily Progress Note Assessment/Plan: 1. Hypertension. Continue [...] Revision L4 laminotomy. SURGEON: Dr. Tin Mcclure. DIE SINKING MACHINE OPERATOR: Mahesh Rodgers PA-C, who was [...] the preop area of [facility] today, 05/03/2014. The low back was [...] the next 6 weeks. HANG MCCLURE MD [facility] D 05/03/2014 09:21:55 T 05/03/2014 12:31:48 R 05/03/2014 12:31:48 [id number] cc:LUCIANO GUERRA MD documented in this encounter [...] evidence for acute fracture. Luciano León MD [facility] ORDER [place] XR Ankle Port [...] for fracture. Vascular calcifications. Luciano León MD [facility] ORDER BRAYDEN XR Chest Port [...] documented as of this encounter Care Teams Paperboard Box Maker Relationship Specialty Start Date End Date Primary Dr, Dipak, PCP - General 09/21/1204/18 Celina Coley PCP - General Family Practice 05/05/17 05/11/[address] [address] Kehinde Portillo PCP - General 05/12/[address] [address] Jon White Assigned Surgical Provider 08/10/20 12/08/20 MD [address] [place] [address] Ramiro Loco MD Assigned Heart and 08/10/20 05/11/21 [address] Vascular Provider [place] [address] Gallito Gonzalez, Assigned Heart and 09/29/21 Vascular Provider [address] [place] [address] documented as of this encounter
--- OUTSIDE RECORDS SUMMARY | 2022-08-14 11:19 | XMS_ITS | Encounter Summary ---
:1940 Author Organization [place] Address [address] [place] [address] Care Team Providers Name Role Phone Primary Dr, Unknown Primary Care Provider Unavailable Reason for Visit Auth/Cert - Closed Specialty Diagnoses / Procedures Referred By Contact Refer red To Contact Surgery Diagnoses painful internal fixation left foot Rh Periop Services Procedures REMOVE HARDWARE FOOT [address] [place], [place] [address] Phone: Fax: Referral ID Status Reason Start Date Expiration Date Visits Requ ested Visits Authorized [id number] Closed 1 1 Encounter Details Date Type Department Care Team Description 09/30/2012 Surgery [facility] Daniel Trujillo har dware removel left [place] [facility] DPM foot [address] [facility] [address] [facility] E [facility] [address] [address] [place], [place] [id number] (Wo rk) Surgery Details Date/Time Status Location [...] Comments Blood Pressure 137/81 09/30/2012 10:30 AM BACK [employer] Pulse - - Temperature 35.9 ??C (96.6 ??F) 09/30/2012 10:24 AM BACK [employer] Respiratory Rate 20 09/30/2012 10:24 AM BACK [employer] Oxygen Saturation 98% 09/30/2012 10:24 AM BACK [employer] Inhaled Oxygen Concentration - - Weight 93 kg (205 lb) 09/30/2012 10:24 AM BACK [employer] Height 170.2 cm (5' 7) 09/30/2012 10:24 AM BACK [employer] Body Mass Index 32.11 09/30/2012 10:24 AM BACK [employer] documented in this encounter Discharge Instructions Discharge [...] DR. DANIEL TRUJILLO M.D. CLINIC PHONE NUMBER: [phone]. [employer] documented in this encounter Medications at Time [...] Trujillo DPM - 09/23/2012 4:09 PM CST [employer] documented in this encounter Nursing Notes Iwona Ruiz RN - 09/30/2012 12:33 PM CST First Panel started at 1210 and ended at 1230. Second panel started at 1230 and ended at 1237. Jen Ruiz RN [employer] Iwona Ruiz RN - 09/30/2012 12:22 PM CST Patient did not want his hardware that was removed from procedure on 09/30/[address] Trujillo. Jen Ruiz RN [employer] documented in this encounter OR Notes OR Anesthesia - Daniel Trujillo DPM - 10/01/2012 9:43 AM CST [employer] documented in this encounter Miscellaneous Notes Op [...] DPM MT: [id number] Name: ELDA HENDRICKS Account: [id number] : 1940 Procedure Date: 09/30/2012 Document: [id number] cc: Ramiro Walker MD [employer] Brief Op Note - Daniel Trujillo DPM - 09/30/2012 1:01 PM CST [facility] Podiatry/Foot and Ankle Surgery Brief Operative Note Pre-operative diagnosis: Painful Internal Fixation left foot Painful recurrence of toenail right great toe Post-operative diagnosis same Procedure: Procedure(s): Hardware Removal left foot - Deep Surgical matrixectomy right great toe Surgeon: DANIEL TRUJILLO DPM Assistants(s): Anesthesia: MAC Estimated blood loss: 5 cc [employer] documented in this encounter Plan of Treatment Not on filedocumented as of this encounter Procedures Procedure Name Priority Date/Time Associated Diagnosis Comme nts XR FOOT PORT LEFT 3 Routine 09/30/2012 1:44 PM Re sults for this VIEWS BACK [employer] procedure are i n the results section. EXCISION, TOENAIL 09/30/2012 11:41 AM painful internal BACK [employer] fixation left foot Special Needs # Hx MRSA REMOVAL, HARDWARE, FOOT 09/30/2012 11:41 AM BACK [employer] painfu l internal fixation left foot Special Needs # Hx MRSA EKG 12-LEAD, TRACING ONLY Routine 09/30/2012 11:38 AM BACK [employer] Results for this procedure are in the resu lts section. HIM ECG SCAN Routine 09/30/2012 documented in this encounter Results X-ray LEFT Foot 3 vw port (09/30/2012 1:44 PM BACK [employer]) Anatomical Region Laterality Modality Left Foot Left Other Specimen (Source) Anatomical Collection Method Collection Time Re ceived Time Location / / Volume Laterality 09/30/2012 1:44 PM BACK [employer] Impressions 10/01/2012 10:47 AM BACK [employer] IMPRESSION: Postoperative and degenerative change. No acute abnormality. ODILON RANDOLPH MD Narrative 10/01/2012 10:47 AM BACK [employer] LEFT FOOT THREE OR MORE VIEWS PORTABLE [...] EKG 12-lead, tracing only (09/30/2012 11:38 AM BACK [employer]) Component Value Ref Range Test Analysis Performed Pathologis t Method Time At Signature Ventricular Rate 64 BPM RADIOLOGY RESULTS Atrial Rate 64 BPM RADIOLOGY RESULTS RI Interval 154 ms RADIOLOGY RESULTS QRS Duration 80 ms RADIOLOGY RESULTS QT 410 ms RADIOLOGY RESULTS QTc 422 ms RADIOLOGY RESULTS P [place] -1 degrees RADIOLOGY RESULTS R AXIS -9 degrees RADIOLOGY RESULTS T [place] -7 degrees RADIOLOGY RESULTS Interpretation Sinus rhythm [...] / / Volume Laterality 09/30/2012 11:38 AM BACK [employer] Doctor Unknown ECG ORDERABLES Performing Organization Address [...] 15 mLs Operative injection 0.5% (PF) PM BACK [employer] Site/Surgical S ite PRN, Starting on Yesenia 09/30/12 at 1238, Intra-procedure fentaNYL (SUBLIMAZE) injection 25-50 mcg Given 09/30/2012 2:16 PM BACK [employer] 50 mcg 25-50 mcg, Intravenous, EVERY 2 MIN PRN, other, acute pain, Starting on Yes[place] 09/30/12 at 1251, MAX cumulative dose = 250 mcg. Use Fentanyl initially, as a short acting agent for acute pain control. If insufficient, or a longer acting agent is needed, begin Morphine or Hydromorphone if ordered., PACU Given 09/30/2012 1:33 PM BACK [employer] 50 mcg HYDROcodone-acetaminophen 5-325 MG per Given 09/30/2012 2:16 PM BACK [employer] 1 tablet tablet 1-2 tablet 1-2 tablet, Oral, ONCE, On Yesenia 09/30/12 at 1330, For 1 dose, One time prior to discharge., Post-procedure lactated ringers infusion New Bag 09/30/2012 1:33 PM BACK [employer] 1,000 mLs 100 mL/hr at 100 mL/hr, Intravenous, CONTINUOUS, Continue until IV catheter is weaned, PACU, Starting on Yesenia 09/30/12 at 1300, Until Yesenia 09/30/12 at 1723 lidocaine (PF) (XYLOCAINE) Given 09/30/2012 12:40 PM 4 mLs Operative Site/Surgical 1 % injection BACK [employer] Site PRN, Starting on Yes[place] 09/30/12 at 1238, Intra-procedure sodium chloride 0.9% Given 09/30/2012 12:41 PM 100 mLs Operative Site/Surgical (bottle) irrigation BACK [employer] Site PRN, Starting on Yesenia 09/30/12 at 1241, Area to irrigate and instructions: ., Intra-procedure documented in this encounter Active and Recently Administered Medications Times are shown in [employer]. Scheduled Medication Order 09/28/2012 09/29/2012 09/30/2012 HYDROcodone-acetaminophen [...] (Given - Provider: Lety Guzman APRN RN CASE MANAGEMENT) Routine, 900 mg, Intravenous, EVERY 6 HO [...] Intra-procedure documented in this encounter Care Teams Mask Designer Relationship Specialty Start Date End Date Primary Dipak Kasper MD PCP - General 09/21/1204/18 documented as of this encounter
--- OUTSIDE RECORDS SUMMARY | 2022-08-14 11:19 | XMS_ITS | Encounter Summary ---
:1940 Author Organization [place] Address [address] [place] [address] Care Team Providers Name Role Phone Primary Dipak Kasper MD Primary Care Provider Unavailable Celina Coley [facility] [place] Primary Care Provider Jon White MD Unavailable [phone] Ramiro Loco MD Unavailable Encounter Details Date Type Department Care Team Description 04/18/2014 [facility] Provider, [facility] Health Information Management [address] [place] [address] [address] [place] [address] Social History Tobacco Use Types Packs/Day Years [...] documented as of this encounter Care Teams Swatch Checker Relationship Specialty Start Date End Date Primary Dipak Kasper MD PCP - General 09/21/1204/18 Celina Coley PCP - General Family Practice 05/05/17 05/11/[address] [address] Kehinde Portillo PCP - General 05/12/17 [place] [address] [place], [place] [id number] Jon White Assigned Surgical Provider 08/10/20 12/08/20 MD Aubrey [address] [place], [place] [id number] Ramiro Loco MD Assigned Heart and 08/10/20 05/11/21 [address] [place] [address] Vascular Provider [place] [address] documented as of this encounter
--- OUTSIDE RECORDS SUMMARY | 2022-08-14 11:19 | XMS_ITS | Encounter Summary ---
:1940 Author Organization [place] Address [address] [place] [address] Care Team Providers Name Role Phone Unavailable Primary Care Provider Unavailable Reason for Visit Reason Comments Surgical Followup 02/06 left foot post op. Encounter Details Date Type Department Care Team Description 06/04/2011 Office Visit [facility] Sal Chaparro aftercare (Primary Dx); Clinic Yumiko Castellanos DPM [place] [address] [facility] [place] [address] [place] [address] Social History Tobacco Use Types [...]
--- OUTSIDE RECORDS SUMMARY | 2022-08-14 11:19 | XMS_ITS | Encounter Summary ---
:1940 Author Organization [place] Address [address] [facility] [place] [address] Care Team Providers Name Role Phone Unavailable Primary Care Provider Unavailable Reason for Visit Reason Comments Surgical Followup 02/06 left foot surgery. Seco nd metatarsal fracture nonunion, left foot Encounter Details Date Type Department Care Team Description 04/30/2011 Office Visit [facility] Sal Chaparro aftercare Clinic Yumiko Castellanos DPM (Primary Dx) [address] [place] [address] [place] [address] [phone] Social History Tobacco Use Types Packs/Day Years [...]
--- OUTSIDE RECORDS SUMMARY | 2022-08-14 11:19 | XMS_ITS | Encounter Summary ---
:1940 Author Organization [place] Address [address] [place] [address] Care Team Providers Name Role Phone Primary Dr, Unknown Primary Care Provider Unavailable Reason for Visit Reason Onset Date Comments Call To Schedule Appointment 10/08/2012 Encounter Details Date Type Department Care Team Description 10/08/2012 Telephone [facility] Sal Chaparro, Call To Schedule [address] [employer] [facility] [place] [address] 1021 [facility] [phone] [facility] 100 [place], [place] [address] (Wo rk) Social History Tobacco Use Types [...] Is scheduled for 10/22/12. Marianne Kim RN CCO CURER Telephone Encounter - Sal Chaparro, DPM - 10/08/2012 10:28 AM TOBACCO CURER Marianne, Would recommend F/U appt either Dr. Nesbitt or myself in 2-3 wks. [facility]CO CUR[facility] Telephone Encounter - Brittany Phan - 10/08/2012 10:08 AM CST Pt no showed appt today and you are off next week do you want him to f/u with another provider or see you the following week? [facility] CURER Telephone Encounter - Nelida Davalos - 10/08/2012 7:53 AM CST Patient was told to schedule an appointment two weeks after operation which would be on ThursdayOctober 22. Dr. Chaparro stated he would like to see patient exactly two weeks after operation and to fit him into the schedule. Please contact patient to schedule appointment. Thank you, Nelida Lopez Central Scheduling CCO CURER documented in this encounter Plan of Treatment Not on filedocumented as of this encounter Visit Diagnoses Not on filedocumented in this encounter Care Teams Saw Filer Relationship Specialty Start Date End Date Primary Dipak Kasper MD PCP - General 09/21/1204/18 documented as of this encounter
--- OUTSIDE RECORDS SUMMARY | 2022-08-14 11:19 | XMS_ITS | Encounter Summary ---
:1940 Author Organization [place] Address [address] [place] [address]. [place] [address] Care Team Providers Name Role Phone Primary Dr, Unknown Primary Care Provider Unavailable Encounter Details Date Type Department Care Team Description 09/30/2012 Anesthesia Event [facility] Viraj Silva PeriOp Letty Tejeda MD [address] [place] [address] ANESTHESIA [phone] [facility] 20 [place], [place] [address] (Wo rk) Anesthesia Record [...] Type Details Placement Removal Peripheral IV 09/30/12; (INDUSTRIAL ORGANIZATION MANAGER); 20 09/30/12 0000 by 09/30/12 14 45 [...] 97.00%. Additional Comments: Doing Well. Euvolemic. AKollitzMD NG MACHINE SET UP OPERATOR Anesthesia Preprocedure Evaluation - Damian Silva MD [...] benefits and alternatives discussed with: patient or traffic representative. Possibility of blood products discussed. History & Physical Review History and physical reviewed; no interval change. . NG MACHINE SET UP OPERATOR documented in this encounter Miscellaneous Notes Anesthesia Care Transfer Note - Lety Guzman APRN CRNA - 09/30/2012 12:47 PM CST Anesthesia Care Transfer Note Patient: Speedy Hendricks Transferred to: Phase II Patient vital signs: stable Airway: none To phase 2. criteria met. NG MACHINE SET UP OPERATOR documented in this encounter Plan of Treatment Not on filedocumented as of this encounter Visit Diagnoses Not on filedocumented in this encounter Administered Medications Inactive Administered Medications - up to 3 most recent administrations Medication Order MAR Action Action Date Dose Rate Site clindamycin (CLEOCIN) IVPB 900 mg Given 09/30/2012 11:52 AM RULING MACHINE SET UP OPERATOR 900 mg Routine, 900 mg, Intravenous, EVERY 6 HOURS PRN, Starting on Yesenia 09/30/12 at 1034, Intra-Op Dose. Give every 6 hours while patient in surgery, starting 6 hours after pre-op dose. DO NOT GIVE intra-op dose if CrCl < 10 mL/min (on dialysis). If CrCL < 50 mL/min, double the time interval between doses., Pre-procedure fentaNYL (SUBLIMAZE) injection Given 09/30/2012 12:15 PM RULING MACHINE SET UP OPERATOR 50 mcg PRN, moderate to severe pain, Starting on Yesenia 09/30/12 at 1215, Anesthesia Intra-op lactated ringers infusion New Bag 09/30/2012 11:39 AM RULING MACHINE SET UP OPERATOR mL Intravenous, CONTINUOUS PRN, Anesthesia Intra-op, Starting on Yesenia 09/30/12 at 1139, Until Yesenia 09/30/12 at 1248 midazolam (VERSED) injection Given 09/30/2012 11:54 AM RULING MACHINE SET UP OPERATOR 2 mg PRN, anxiety, Starting on Yesenia 09/30/12 at 1145, Anesthesia Intra-op Given 09/30/2012 11:45 AM RULING MACHINE SET UP OPERATOR 2 mg propofol (DIPRIVAN) Rate/Dose 09/30/2012 12:11 20 mcg/kg/min 11.2 mL /hr injection Change PM RULING MACHINE SET UP OPERATOR CONTINUOUS PRN, Starting on Yesenia 09/30/12 at 1202, Anesthesia Intra-op Rate/Dose Change 09/30/2012 12:04 PM RULING MACHINE SET UP OPERATOR 10 mcg/kg/min 5.6 mL/hr New Bag 09/30/2012 12:02 PM RULING MACHINE SET UP OPERATOR 55 mcg/kg/min 30.7 mL/hr documented in this encounter Care Teams Broker Assistant Relationship Specialty Start Date End Date Primary Dipak Kasper, PCP - General 09/21/1204/18 documented as of this encounter
--- OUTSIDE RECORDS SUMMARY | 2022-08-14 11:19 | XMS_ITS | Encounter Summary ---
:1940 Author Organization [place] Address [address] [place] [address] Care Team Providers Name Role Phone Primary Dipak Kasper MD Primary Care Provider Unavailable Celina Coley Primary Care Provider [facility] Primary Care Provider [phone] Jon White MD Unavailable [phone] Ramiro Loco MD Unavailable Encounter Details Date Type Department Care Team Description 05/03/2014 Surgery - [facility] Hang Mccl[place], [facility] [place] [facility] [address] [place] [address] [place] [address] [phone] (Wo rk) Social History Tobacco Use Types [...] documented as of this encounter Care Teams Quarry Manager Relationship Specialty Start Date End Date Primary Dipak Kasper MD PCP - General 09/21/1204/18 Celina Coley PCP - General Family Practice 05/05/17 05/11/[address] [address] Kehinde Portillo PCP - General 05/12/[address] [address] Jon White Assigned Surgical Provider 08/10/20 12/08/20 MD Aubrey [address] [place], [place] [phone] Ramiro Loco MD Assigned Heart and 08/10/20 05/11/21 [address] [place] [address] Vascular Provider [place] [address] documented as of this encounter
--- OUTSIDE RECORDS SUMMARY | 2022-08-14 11:19 | XMS_ITS | Encounter Summary ---
:1940 Author Organization [place] Address [address] [place] [address] Care Team Providers Name Role Phone Primary DrDipak MD Primary Care Provider Unavailable Celina Coley Primary Care Provider [facility] Primary Care Provider [phone] Jon White MD Unavailable [phone] Ramiro Loco MD Unavailable Gallito Gonzalez [...] as of this encounter Care Teams Customer Service Consultant Relationship Specialty Start Date End Date Primary DrDipak, PCP - General 09/21/1204/18 Celina Coley PCP - General Family Practice 05/05/17 05/11/[address] [address] Kehinde Portillo PCP - General 05/12/[address] [address] Jon White Assigned Surgical Provider 08/10/20 12/08/20 MD Aubrey [address] [place] [address] Ramiro Loco MD Assigned Heart and 08/10/20 05/11/21 [address] Vascular Provider [place] [address] Gallito Gonzalez, Assigned Heart and 09/29/21 MD Vascular Provider [address] [place] [address] documented as of this encounter
--- OUTSIDE RECORDS SUMMARY | 2022-08-14 11:19 | XMS_ITS | Encounter Summary ---
:1940 Author Organization [place] Address [address] [place] [address] Care Team Providers Name Role Phone Primary DrDipak MD Primary Care Provider Unavailable Celina Coley Primary Care Provider [facility] Primary Care Provider [phone] Jon White MD Unavailable [phone] Ramiro Loco MD Unavailable Encounter Details Date Type Department Care Team Description 05/02/2014 Anesthesia - [facility] Zoltan Arizmendi MD [address] [place] [address] [phone] Social History Tobacco Use Types Packs/Day Years [...] documented as of this encounter Care Teams Diesel Tractor Engine Mechanic Relationship Specialty Start Date End Date Primary Dipak Kasper MD PCP - General 09/21/1204/18 Celina Coley PCP - General Family Practice 05/05/17 05/11/[address] [address] Kehinde Portillo PCP - General 05/12/17 [address] [address] [place] [address] Jon White Assigned Surgical Provider 08/10/20 12/08/20 MD Aubrey [address] [place], [place] [phone] Ramiro Loco MD Assigned Heart and 08/10/20 05/11/21 [address] [place] [address] Vascular Provider [place] [address] documented as of this encounter
--- OUTSIDE RECORDS SUMMARY | 2022-08-14 11:20 | XMS_ITS | Encounter Summary ---
:1940 Author Organization [place] Address [address] [place] [address] Care Team Providers Name Role Phone Unavailable Primary Care Provider Unavailable Encounter Details Date Type Department Care Team Description 02/06/2011 Operative Report [facility] Daniel Trujillo, (Food Manager) [facility] DPM Results [address] [place], [place] [address] (Wo rk) Social History Tobacco [...] medial and laterally and with a small [place] blade, I was able to carefully dissect [...] DPM MT: [id number] Name: SPEEDY MCDUFFIE Account: [id number] : 1940 Procedure Date: 02/06/2011 Document: [id number] cc: Michelle Hedrick MD documented in this encounter Plan of Treatment Not on filedocumented as of this encounter Visit Diagnoses Not on filedocumented in this encounter
--- OUTSIDE RECORDS SUMMARY | 2022-08-14 11:20 | XMS_ITS | Encounter Summary ---
:1940 Author Organization [place] Address [address] [place] [address] Care Team Providers Name Role Phone Unavailable Primary Care Provider Unavailable Encounter Details Date Type Department Care Team Description 02/06/2011 Results [facility] Tiffanie meadows, Sal Castellanos, [facility] Results [address] [place], [place] [address] (Wo rk) Social History Tobacco [...]
--- OUTSIDE RECORDS SUMMARY | 2022-08-14 11:20 | XMS_ITS | Encounter Summary ---
:1940 Author Organization [place] Address [address] [place] [address] Care Team Providers Name Role Phone Unavailable Primary Care Provider Unavailable Reason for Visit Reason Comments Surgical Followup 02/06 post op left foot 2nd m etatarsal Fx. Encounter Details Date Type Department Care Team Description 03/05/[address] [facility] Sal Chaparro aftercare Clinic Yumiko Castellanos DPM (Primary Dx) [address] [place] [address] [place] [address] Social History Tobacco Use Types [...]
--- OUTSIDE RECORDS SUMMARY | 2022-08-14 11:20 | XMS_ITS | Encounter Summary ---
:1940 Author Organization [place] Address [address] [place] [address] Care Team Providers Name Role Phone Unavailable Primary Care Provider Unavailable Reason for Visit Reason Onset Date Comments Patient Inquiry 02/19/2011 [facility] and Creat risi ng Encounter Details Date Type Department Care Team Description 02/19/2011 Telephone [facility] Sal Chaparro Pat iestar Inquiry ([facility] DPM and Creat rising) [address] [place] [address] [facility] [address] [phone] Social History Tobacco Use Types Packs/Day Years [...] and call daughter Raquel with plan @ [phone]. Thanks, Aruna Arriaza RN documented in this encounter Plan of Treatment Not on filedocumented as of this encounter Visit Diagnoses Not on filedocumented in this encounter
--- OUTSIDE RECORDS SUMMARY | 2022-08-14 11:20 | XMS_ITS | Encounter Summary ---
:1940 Author Organization [place] Address [address] [place] [address] Care Team Providers Name Role Phone Unavailable Primary Care Provider Unavailable Reason for Visit Reason Comments Surgical Followup 02/06 left foot post op. Encounter Details Date Type Department Care Team Description 02/14/2011 Office Visit [facility] Sal Chaparroca re following Yariel Castellanos DPM surgery of the [facility] [address] musculoskeletal system, [place] [address] E NEC (Primary Dx) [phone] [address] [place], [place] [address] Social History Tobacco Use Types [...] Component Value Ref Test Analysis Performed At [facility] Range Method Time Signature Specimen Toe [place] Description [facility] Culture Micro Heavy growth [place] Methicillin [facility] Staphylococcus aureus (MRSA) Micro Report FINAL 02/17/2011 [place] Status [facility] Specimen Anatomical Collection Method Collection Time [...] (mrsa) (venkata) Heavy growth methicillin Tetracycline <=1 Zeoy ceptible resistant staphylococcus aureus (mrsa) (venkata) Heavy growth methicillin Trimethoprim/Sulfamethoxazol <=.5/9.5 Susceptible resistant staphylococcus e aureus (mrsa) (venkata) Heavy growth methicillin Vancomycin 1 Susce ptible resistant staphylococcus aureus (mrsa) (venkata) Sal Chaparro DPM LAB - MICRO GENERAL ORDERABL ES Performing Organization Address City/State/ZIP Code Phon e Number M [facility] [address] [place] [address] [address] [facility] documented in this encounter Visit Diagnoses Diagnosis Aftercare [facility], NEC - Primary documented in this encounter
--- OUTSIDE RECORDS SUMMARY | 2022-08-14 11:20 | XMS_ITS | Encounter Summary ---
:1940 Author Organization [place] Address [address] [place] [address] Care Team Providers Name Role Phone Unavailable Primary Care Provider Unavailable Reason for Visit Reason Onset Date Comments Schedule Surgery 01/30/2011 Encounter Details Date Type Department Care Team Description 01/30/2011 Telephone [facility] Sal Engel, Schedule Surgery 1440 [place] [address] 1021 [facility] [phone] [facility] 100 [place], [place] [address] (Wo rk) Social History Tobacco Use Types Packs/Day Years Used Date Smoking Tobacco: Never Assessed Sex Assigned at Date Recorded Not on file documented as of this encounter Miscellaneous Notes Telephone Encounter - Kandy Cain - 02/04/2011 1:02 PM CDT Packet mailed. Kandy Cain CMA Telephone Encounter - Kandy Cain - 01/31/2011 12:49 PM CDT Added to [place] Telephone Encounter - Kandy Cain - 01/31/2011 10:34 AM CDT Surgery scheduled. VM Left with details. Date/Time: 02/06/2011 @ 10:50 am Hospital: [facility] Anesthesia: POP Surgeon: Sal Chaparro D.P.M. [...] surgery details for pt? February 06 or [phone] or [phone] Thank you, Kandy Cain CMA documented in this encounter Plan of Treatment Not on filedocumented as of this encounter Visit Diagnoses Not on filedocumented in this encounter
--- OUTSIDE RECORDS SUMMARY | 2022-08-14 11:20 | XMS_ITS | Encounter Summary ---
:1940 Author Organization [place] Address [address] [place] [address] Care Team Providers Name Role Phone Unavailable Primary Care Provider Unavailable Reason for Visit Reason Comments Musculoskeletal Problem pt states he broke his left great toe and 2nd toe. He is still having trouble/pain in his 2nd toe. Sx since September. Encounter Details Date Type Department Care Team Description 01/29/2011 Office Visit [facility] Sal Chaparro Fractu re, nonunion (Primary Dx); Clinic [place] F, DPM Other hammer toe (acquired); [address] [place] [address] Pain in so ft tissues of limb [place], [place] [address] [address] [place], [place] [phone] Social History Tobacco Use Types Packs/Day Years [...] 2010. Crush type injury w/ a skid concrete bucket loader. Pt has been treated in [facility] [...] X-rays were reviewed Nov 2010 from [facility] with the pt which show a [...]
--- OUTSIDE RECORDS SUMMARY | 2022-08-14 11:20 | XMS_ITS | Encounter Summary ---
:1940 Author Organization [place] Address [address] [place] [address] Care Team Providers Name Role Phone Unavailable Primary Care Provider Unavailable Reason for Visit Reason Onset Date Comments Surgical Followup 02/08/2011 Encounter Details Date Type Department Care Team Description 02/08/2011 Telephone [facility] Sal Chaparro, Surgical Followup [place] DPM [address] [place] [address] [facility] 100 [place], [place] [address] (Wo rk) Social History Tobacco [...]
--- OUTSIDE RECORDS SUMMARY | 2022-08-14 11:20 | XMS_ITS | Encounter Summary ---
:1940 Author Organization [place] Address [address] [place] [address] Care Team Providers Name Role Phone Unavailable Primary Care Provider Unavailable Reason for Visit Reason Comments Surgical Followup 02/06 left foot post op and r ight great toe post op. Encounter Details Date Type Department Care Team Description 04/02/2011 Office Visit [facility] Sal Chaparro aftercare Clinic Yumiko Castellanos DPM (Primary Dx) [address] [place] [address] [place] [phone] [place], [place] [phone] Social History Tobacco Use Types Packs/Day Years [...]
== END 2022-08-14 11:01 | disposition home or self-care (01) ==
PROVIDERS: PCP Family Medicine; Visit Provider Nurse Practitioner Family
DX: L89.324 Pressure ulcer of left buttock, stage 4 (principal); R26.9 Unspecified abnormalities of gait and mobility; R77.0 Abnormality of albumin; D50.9 Iron deficiency anemia, unspecified; K68.12 Psoas muscle abscess
CPT/HCPCS: 11042

== ENCOUNTER 2022-08-22 10:00 | Outpatient (RCR) | payer MEDICARE, BC, SELFPAY ==
--- NOTE | 2022-07-04 15:21 | OT.OPGNE ---
OT Outpatient General/Neuro Eval OT Outpatient General/Neuro Eval Start: 07/01/22 16:27 Freq: Status: Active Protocol: Document 07/01/22 16:28 KRISTIN (Rec: 07/01/22 16:36 KRISTIN [id number]) E-signed By Carlie Hale OT Outpatient Evaluation Details Type Type Eval Complexity Low Insurance Information Insurance Information Insurance Information Medicare B Outpatient History/Precautions Medical/Functional History Medical History Reviewed Yes Prior Level of Function/Mobility Prior to prolonged hospital stay, pt was independent in ADLs and mobility without AD. Current Condition Treatment Diagnosis Left leg weakness Social History Type of Dwelling Multilevel Home Number of Floors (Floors) 2 Lives With: Alone Employment Status Retired Hobbies Rodolfo Oriented Patient Orientation Person,Place,Time,Situation Patient Subjective Subjective Patient Subjective I feel like I am back to baseline I don't remember anything from my stay at the hospital Home Maintenance Assessment ADL Oral Care Ability Independent Bathing Ability Independent Eating (Feeding) Ability Independent Upper Body Dressing Ability Independent Lower Body Dressing Ability Independent Grooming Ability Independent Toileting Ability Independent Ambulation Ability Independent Home Management Meal Preparation Ability Independent Cleaning Ability Total Assistance Shopping Ability Total Assistance Assistance Assistance Currently Received Daughter is staying with pt at home, she completes grocery shopping and other errand runs that require driving. Cognitive Assessments Performed Cognitive Assessments Performed [place]uck Making A and B Results Pt. completed part A in 54 seconds and part B in 145 seconds, timed results show no sign of alerting cognitive impairment. Grimsley Cognitive Assessment (MOCA) Results Pt. scored a 19/30. Demonstrated difficulty in visuospatial/executive sections and memory recall. Comments Cognitive Assessments Performed Comments Maze Test: Pt. completed test in 54 seconds with no errors, resulting in patient to have adequate cognitive capacity to drive safely. Assessment Assessment Assessment Ed is a 81 year old male who was seen for cognitive testing to determine driving readiness. He was accompanied by his daughter who is also staying with him at home to assist with IADLs such as grocery shopping and other errands. Pt. lives alone and was independent in ADLs prior to 10 wk hospital stay due to left leg weakness and stint malfunctions. Pt. disclosed that he doesn't remember his time in the hospital but has returned to his baseline cognition since coming home 2 weeks ago. MOCA, trail making and maze test were administered, pt completed these independently but required repeated prompts for clock drawing and difficulty with memory recall within the MOCA. Pt. appeared to have appropriate level of cognition during conversation but demonstrated times of confusion and short term memory loss when discussing answers to MOCA test ( reminding OT where he learned to draw the cube multiple times after OT demonstrated it to him earlier in the session ). Future testing is advised to determine readiness to drive within the upcoming 2-3 sessions where CPT and problem solving questionnaire will be administered. Education about test results and their indications will be discussed with patient and daughter when cognitive testing has concluded. Occupational Therapy Treatment Plan - OP Potential Rehabilitation Potential Good Set Goals Goals Set with Patient Yes Goals Goals Within 3 visits, the patient will.. 1. complete cognitive assessments to determine readiness to drive 2. patient and daughter will be educated on recommendations moving forward 3. patient and daughter will determine transportation needs of the patient based on cognitive assessment results Target Date Within 3 OT visits Progress set Treatment Plan Treatment Plan Evaluation,Self-Care/Home Management Expected Frequency 1-2x Week Expected Frequency Comments Patient and daughter will be seen (07/03) to continue cognitive testing. Pt is planned to see OT a third time to discuss results and final assessment recommendations. Certification Certification I Certify That: Therapy Services Provided, Therapy Plan Established, Therapy Plan Reviewed
== END 2022-10-22 13:10 | disposition home or self-care (01) ==
PROVIDERS: PCP Family Medicine; Visit Provider Family Medicine
DX: M62.81 Muscle weakness (generalized) (principal); Z51.89 Encounter for other specified aftercare
CPT/HCPCS: 97110; 97162; 97165; 97535

== ENCOUNTER 2022-08-28 10:58 | Outpatient (CLI) | payer MEDICARE, BC, SELFPAY | END 2022-08-28 10:59 | disposition home or self-care (01) | LOC: WOUND 10:58 | PROVIDERS: PCP Family Medicine; Visit Provider Nurse Practitioner Family | DX: L89.324 Pressure ulcer of left buttock, stage 4 (principal) | CPT/HCPCS: 97597 ==

== ENCOUNTER 2022-09-18 10:59 | Outpatient (CLI) | payer MEDICARE, BC, SELFPAY | END 2022-09-18 11:00 | disposition home or self-care (01) | PROVIDERS: PCP Family Medicine; Visit Provider Nurse Practitioner Family | DX: L89.324 Pressure ulcer of left buttock, stage 4 (principal) | CPT/HCPCS: 99213 ==

== ENCOUNTER 2023-10-06 07:24 | Outpatient (CLI) | payer MEDICARE, BC, SELFPAY ==
--- OUTSIDE RECORDS SUMMARY | 2023-10-08 11:11 | XMS_ITS ---
Author Name Rich Bradley Address [address] [place] [address] Phone [phone] Organization [facility] e, NA DOCUMENT DISCLAIMER Multiple document versions may exist, please be sure you review the latest version. The information in the [facility] Progress Note Document represents a providers documented clinical note containing certain health and medical information. It may not contain the complete medical history for the patient and should be independently verified. The represented time in the document is Eastern Time PROVIDER ROUNDING NOTE COMPREHENSIVE Patient:?Speedy?Eladio,?1940,?82y,?M Dialysis?Location:?[facility]?-?[facility] Attending?Cleaning Laborer:?Marisol?Kirk Service?Date:?01/06/2023 Service?Provider:?Marisol?Kirk,? I?met?face?to?face?with?the?patient?today. OVERVIEW The?patient?presented?with?ESRD?on?dialysis Primary?cause?of?renal?failure:?Unspecified?injury?of?unspec ified?kidney,?initial?encounter Comments:?Doing?well.??Cr?2.42.??States?he?makes?a?lot?of?urine.? DOS:?01/06/2023,?late?entry.? Medications?and?labs?reviewed. DIALYSIS?PRESCRIPTION ??IHD?1x?Week?Start?date:?12/16/22 ??Dialyzer:?180NRe?Optiflux ??BFR:?400 ??DFR:?Manual?600 ??Potassium:?3.0 ??Sodium:?138 ??EDW:?74 ??Duration:?3:00 ??Calcium:?2.5 ??Bicarb:?36 ??Rx?updated?on:?12/16/2022 Comments:?Rx?reviewed TREATMENT?ASSESSMENT Blood?pressure?controlled.?No?changes?indicated.? BP?Stand?Pre ??01/20/2023:?193/106 ??01/13/2023:?210/116 ??01/06/2023:?173/115 BP?Sit?Pre ??01/20/2023:?174/90 ??01/13/2023:?193/103 ??01/06/2023:?169/103 BP?Stand?Post ??01/20/2023:?180/106 ??01/13/2023:?155/97 ??01/06/2023:?182/115 BP?Sit?Post ??01/20/2023:?167/94 ??01/13/2023:?152/91 ??01/06/2023:?169/103 Tx?Duration ??01/20/2023:?3:07 ??01/13/2023:?2:59 ??01/06/2023:?3:02 Missed?Treatments 0?-?last?30?days 0?-?last?60?days FLUID?ASSESSMENT Fluid?status?acceptable.?Interdialytic?weight?gain?acceptable.?No ?changes?indicated.? EDW?(kg) ??01/20/2023:?74.0 ??01/13/2023:?74.0 ??01/06/2023:?74.0 Weight?Pre?(kg) ??01/20/2023:?74.4 ??01/13/2023:?75.0 ??01/06/2023:?75.2 Weight?Post?(kg) ??01/20/2023:?73.8 ??01/13/2023:?74.3 ??01/06/2023:?73.5 PWV?(kg) ??01/20/2023:?-0.2 ??01/13/2023:?0.3 ??01/06/2023:?-0.5 UF?Rate?(mL/kg/hr) ??01/20/2023:?2.6 ??01/13/2023:?3.2 ??01/06/2023:?7.6 ADEQUACY?ASSESSMENT Adequacy?target?met.?Prescription?compliance?acceptable.? spKt/V,?URR ??01/20/2023:?1.68,?78.0 ??12/23/2022:?1.76,?79.0 ??12/09/2022:?1.69,?79.0 ?? Urine?Cr?Clearance ??01/20/2023:?29.1 ??12/09/2022:?19.4 ACCESS?ASSESSMENT ??Access?Type:?CVCatheter ??Access?SubType:?Tunneled ??Access?Status:?Active?(In?Use)?-?04/05/2022 ??Access?Location:?Chest ??Placed:?--/--/---- Comments:?Maybe?recovering?renal?function.? Vascular?access?reviewed. ANEMIA?ASSESSMENT DYLAN?adjusted?per?protocol.?Anemia?reviewed.?Anemia?targets?met.? HGB,?TSAT ??01/20/2023:?12.2,?42.0 ??01/13/2023:?11.8,?- ??01/06/2023:?11.5,?- ?? Ferritin ??01/20/2023:?1151.0 ??12/23/2022:?1062.0 ??12/02/2022:?1015.0 Iron?Sucrose?(Venofer)?(mg) ??12/13/2022:?50 ??12/06/2022:?50 BMM?ASSESSMENT PTH?within?target.?Bone?and?mineral?metabolism?parameters?re viewed.?Calcium?controlled.?Phosphorus?controlled.?Counseled?regarding ?dietary?compliance.? Phosphorus,?Calcium ??01/20/2023:?4.0,?9.2 ??12/23/2022:?4.9,?9.1 ??12/02/2022:?3.8,?9.5 ?? PTH,?Intact ??12/23/2022:?174.0 ??12/02/2022:?317.0 ??10/31/2022:?202.0 NUTRITION?ASSESSMENT Nutrition?reviewed.?Potassium?controlled.? Albumin,?Potassium ??01/20/2023:?4.3,?4.5 ??12/23/2022:?4.1,?4.7 ??12/02/2022:?4.4,?4.4 ?? eNPCR ??12/09/2022:?1.34 ??11/05/2022:?0.85 ??09/24/2022:?0.84 PHYSICAL?EXAM Comments:?VS:?178/124,?115,?finishing Exam?Performed.?Vital?Signs?Reviewed.?Lungs?-?Clear.?CV&#160 ;-?Blood?pressure?noted.?CV?-?RRR.?EXT?-?No?edema. ?AVF/AVG?Positive?thrill/bruit. DIAGNOSIS Chief?Complaint:?N18.6?End?stage?renal?disease Patient?is?stable. Patient?data?updated?01/23/2023?at?4:57?PM Signed?By:?Kirk,?Marisol???on?01/23/2023?5:01:49?PM END OF DOCUMENT
--- OUTSIDE RECORDS SUMMARY | 2023-10-08 11:11 | XMS_ITS | Continuity of Care Document ---
Author Name Unknown Organization [facility] Address [address] [place] [address] Phone Care Team Providers Care Bedspread Seamer Name Role Phone Rika WELSH, Dimas Unavailable Unavailab le Allergies, Adverse Reactions, Alerts Substance Reaction Status Criticality No Known allergies Medications Medication Instructions Dosage Effective Dates (start - stop) Status Comments SIMVASTATIN (unknown strength) Not Available - Active MISOPROSTOL (unknown strength) Not Available - Active DICLOFENAC SODIUM-MISOPROSTOL (unknown strength) Not Available - Active METOPROLOL TARTRATE (unknown strength) Not Available - Active Procedures Procedure Date Office/Outpatient Visit,New, Mod 2012 X-Ray Exam Lower Spine 2-3 Views 2012 Office/outpatient visit,est, mod 2005 X-ray exam of neck spine2-3 views Office/outpatient visit,est, mod 2005 X-ray exam of neck spine2-3 views Postop followup visit X-ray exam of neck spine2-3 views Remove Cerv spine disk, single Remove added Cerv spine disk Neck spine fusion (cerv,below C2) Spinal fusion, ea add'l interspace Insert spine fix dev, ant, 2-3 seg Apply spinal prosthetic device 06 Advance Directives Directive Yes / No Effective Date File Name No Information Encounters Encounter Description Practice Location Reason(s) For Visit Diagnoses Date Provider Providers Copied on Encounter [facility], [address], [place], [address], [place] tel:[phone] Availigent No Information [address] [facility], [address], [address], [place], [place], [id number], [place]. tel:[phone] Office/Outpa tient Visit,New, Mod Z [facility], [address], [place], [place], [facility], [place] tel:[phone] Availigent LUMBAGO [address] [facility], [address], [place], [place], [id number], [place]. tel:[phone] Office/outpa tient visit,est, mod Z [facility], [address], [place], [place], [facility], [place] tel:[phone] Availigent No Information 6 No Information Office/outpa tient visit,est, mod Z [facility], [address], [place], [place], [facility], [place] tel:[phone] Availigent No Information [address] [facility], [address], [place], [place], [facility], [place] tel:[phone] Availigent No Information [address] [facility], [address] [address], [place], [facility], [place] tel:[phone] [facility] No Information 0 6 No Information Family History Family Member Type Diagnosis Age At Onset No Information Payers Payer name Insurance type Covered republican ID Authorayalaa kishorkitty(s) [facility] [id number] Medicare BL [id number] Social History Type Description Quantity Date Captured Comments Sex Male Smoking Status No Information Chief Complaint And Reason For Visit No Information Reason For Referral Reason For Referral No Information History Of Present Illness Encounter Date Complaint History Of Prese nt Illness No Information Functional Status Date Functional Assessmen t No Information Instructions Date Instruction Additional Infor mation No Information Assessments Type Assessment Date No Information Patient Care Teams Name Effective Dates (start - stop) Status Members No Information
== END 2023-10-06 07:25 | disposition home or self-care (01) ==
LOC: AMB 10-08 11:10
PROVIDERS: PCP Family Medicine; Visit Provider Family Medicine
DX: S79.911A Unspecified injury of right hip, initial encounter (principal); S09.90XA Unspecified injury of head, initial encounter; W10.9XXA Fall (on) (from) unspecified stairs and steps, initial encounter; Y92.007 Garden or yard of unspecified non-institutional (private) residence as the place of occurrence of the external cause
CPT/HCPCS: A0425; A0427

== ENCOUNTER 2025-09-16 07:21 | Outpatient (CLI) | payer MEDICARE, BC, SELFPAY | END 2025-09-16 07:22 | disposition home or self-care (01) | LOC: AMB 09-18 19:37 | PROVIDERS: PCP Family Medicine; Visit Provider Emergency Medicine | DX: M54.9 Dorsalgia, unspecified (principal); R10.9 Unspecified abdominal pain; R20.2 Paresthesia of skin | CPT/HCPCS: A0425; A0427 ==